=== PATIENT | female | born 1960 | race Two or more races ===

== ENCOUNTER 2020-08-21 13:20 | Emergency (ER) | payer MEDICARE, MEDICAID, SELFPAY ==
--- NOTE | 2020-08-21 | CT_ITS ---
EXAMINATION: CT ANGIOGRAM OF THE CHEST WITH AND WITHOUT CONTRAST (CT PULMONARY ANGIOGRAM FOR PE) CLINICAL INFORMATION: Reason for Exam SOB, elevated DDIMER r/o PE COMPARISON: Chest x-ray from earlier the same day and previous chest CTA most recent January 2019 TECHNIQUE: Prior to contrast administration, noncontrast localization images were obtained. Subsequently, multidetector volumetric imaging was performed from the thoracic inlet to below the diaphragms following the administration of 65 mL Omnipaque 350 intravenous contrast. No contrast reaction reported Sagittal, coronal, and MIP oblique sagittal reformatted images were obtained on the CT workstation, uploaded to PACS, and reviewed. This CT examination was performed using dose optimization techniques as appropriate, variously including the following: *Automated exposure control *Adjustment of mA and/or kV according to patient size (this includes techniques or standardized protocols for targeted exams where dose is matched to indication/reason for exam; i.e. extremities or head) *Use of iterative reconstruction technique Total exam dose-length product 188 mGy-cm FINDINGS: QUALITY OF STUDY/CONTRAST BOLUS: Satisfactory. PULMONARY ARTERIES: No central or segmental pulmonary emboli. THORACIC AORTA: No aneurysm or dissection. LUNG: No focal consolidation, nodules or masses. Or increased interstitial markings seen in the peripheral anterior left upper lobe, question representing post radiation change. PLEURA: No pleural effusion or pneumothorax. MEDIASTINUM: Normal heart size. No pericardial effusion. No hilar or mediastinal lymphadenopathy. No evidence of septal bowing or right heart strain. CHEST WALL/AXILLA: No axillary or internal mammary lymphadenopathy. OSSEOUS STRUCTURES: No acute or suspicious osseous abnormality. UPPER ABDOMEN: Unremarkable. No reflux of contrast into the hepatic veins to suggest elevated right heart pressures. IMPRESSION: No evidence of pulmonary embolism. VTE: negative
--- NOTE | 2020-08-21 | CT_ITS ---
EXAMINATION: CT ABDOMEN AND PELVIS WITH CONTRAST CLINICAL INFORMATION: Abdominal pain. Blood diarrhea. History of colitis. COMPARISON: CT abdomen pelvis 08/16/2019 TECHNIQUE: Multidetector volumetric images were obtained from the superior aspect of the liver through the pubic symphysis following administration of 71 mL of Omnipaque 350 intravenous contrast. Sagittal and coronal reformatted images were obtained on the technologist's workstation. Oral contrast: No This CT examination was performed using dose optimization techniques as appropriate, variously including the following: *Automated exposure control *Adjustment of mA and/or kV according to patient size (this includes techniques or standardized protocols for targeted exams where dose is matched to indication/reason for exam; i.e. extremities or head) *Use of iterative reconstruction technique DLP: 353 mGy-cm FINDINGS: LUNG BASES: The visualized lung bases are unremarkable. LIVER, GALLBLADDER, AND BILIARY TREE: There is diffuse mild low-attenuation of liver parenchyma due to fatty change. No focal liver lesion and hepatic bile duct dilatation. The gallbladder is unremarkable with no evidence of radiopaque gallstones, gallbladder wall thickening, or obvious pericholecystic inflammatory changes. PANCREAS: Unremarkable. SPLEEN: Unremarkable. ADRENAL GLANDS: Unremarkable. KIDNEYS AND URETERS: The kidneys are normal in size, shape, and attenuation. No hydronephrosis, hydroureter, or calculi seen. No perinephric stranding. BLADDER: Unremarkable. GASTROINTESTINAL TRACT: There is mild bowel wall thickening of the sigmoid colon. This is nonspecific. There are a few scattered diverticula in the sigmoid colon. There is no pericolonic edema. Moderate volume of stool in the right colon through the transverse colon. Very little stool seen in the left colon. The appendix is normal. The small bowel loops are unremarkable. There is no bowel obstruction. ABDOMINAL WALL: Small fat-containing umbilical hernia LYMPH NODES: Normal. VASCULAR: Atherosclerotic vascular calcifications of the aorta and iliac arteries. There is no aneurysm. PELVIC VISCERA: Unremarkable. OSSEOUS STRUCTURES: Unremarkable. IMPRESSION: Mild bowel wall thickening of the sigmoid colon which could be due to a mild colitis. There is no surrounding pericolonic edema however. There is no bowel obstruction.
--- NOTE | 2020-08-21 | XR_ITS ---
EXAMINATION: XR CHEST CLINICAL INFORMATION: Shortness of breath COMPARISON: Previous chest x-ray most recent 08/10/2020 TECHNIQUE: Frontal view of the chest was obtained. FINDINGS: The cardiac and mediastinal contours are normal. The lungs are clear. There is no pleural effusion or pneumothorax. There is an old right posterior sixth rib fracture. Bony structures are otherwise unremarkable. IMPRESSION: No evidence for acute disease in the chest.
[2020-08-21 13:39] VITALS: BP 134/95; PULSE 97; RESP 25; TEMP 36.9; O2SAT 96; BMI 55.3
--- NOTE | 2020-08-21 13:46 | ED_ITS ---
HPI - Asthma General Chief Complaint: Asthma <JOSEF Carlson Last Filed: 08/21/20 20:31> Stated Complaint: ASTHMA ABD PAIN <JOSEF Carlson Last Filed: 08/21/20 20:31> Time Seen by Provider: 08/21/20 13:44 <JOSEF Carlson Last Filed: 08/21/20 20:31> Source: patient <JOSEF Carlson Last Filed: 08/21/20 20:31> Mode of arrival: ambulatory <JOSEF Carlson Last Filed: 08/21/20 20:31> Limitations: no limitations <JOSEF Carlson Last Filed: 08/21/20 20:31> History of Present Illness HPI Narrative: 60 y/o female with history of asthma presenting with SOB, wheezing x3 weeks and abd discomfort x2 days. She developed abdominal cramping yesterday, then diarrhea and then today had episode of bloody diarrhea. She has a history of colitis and this feels similar. She has been to the ED a few times in the last couple of weeks for her asthma, had negative COVID x2. <JOSEF Carlson Last Filed: 08/21/20 20:31> Related Data Home Medications: Home Medications Medication Instructions Recorded Confirmed omeprazole 40 mg BID 08/21/20 08/21/20 ondansetron HCl [Zofran] 4 mg PO Q6H 08/21/20 08/21/20 Previous Rx's Medication Instructions Recorded [id number] 2 cap PO Q4-6H PRN #20 cap 08/21/20 [Fioricet] metronidazole [Flagyl] 500 mg PO Q12H #14 tab 08/21/20 prednisone 10 mg PO DAILY #48 ea 08/21/20 <JOSEF Carlson Last Filed: 08/21/20 20:31> Allergies/Adverse Reactions: Allergies Allergy/AdvReac Type Severity Reaction Status Date / Time dog dander [DOGS] Allergy Intermediate Respiratory Verified 08/21/20 13:38 distress ibuprofen [Ibuprofen] Allergy Unknown STOMACH Verified 08/21/20 13:38 UPSET, abdominal pain, nausea and vomiting prednisone Allergy Unknown hallucinations, Verified 08/21/20 13:38 higher than 20 metformin AdvReac Unknown diarrhea Verified 03/30/20 00:00 metronidazole [From FLAGYL] AdvReac Unknown DIARRHEA Verified 08/21/20 13:38 SHELL FISH Allergy Unknown swelling, Uncoded 06/06/20 00:00 itching <JOSEF Carlson - Last Filed: 08/21/20 20:31> Review of Systems Review of Systems: Constitutional: No Fever, No Chills ENT/Mouth: No sore throat, No Rhinorrhea, No Swallowing Difficulty Cardiovascular: No Chest Pain, + SOB, + Orthopnea, No Edema Respiratory: + Cough, + Sputum, + Wheezing, + dyspnea Gastrointestinal: No Nausea, No Vomiting, + Diarrhea, + abdominal Pain, + Hematochezia, No Melena Genitourinary: No Dysuria, No Urinary Frequency, No Hematuria Musculoskeletal: No joint pain, No Myalgias Skin: No Skin Lesions, No rash Neuro: No Weakness, No Numbness, No Dizziness, + Headache Psych: No Anxiety/Panic, No Depression Heme/Lymph: No Bruising, No Lymphadenopathy Endocrine: No Polyuria, No Polydipsia <JOSEF Carlson - Last Filed: 08/21/20 20:31> [facility] Past Medical History Attestation statement: The following information was validated with the patient. <JOSEF Carlson - Last Filed: 08/21/20 20:31> Medical History: Medical History Asthma Diabetes mellitus type 1 Hypertension Irritable bowel <JOSEF Carlson - Last Filed: 08/21/20 20:31> Family History Family History: Family History (Updated 08/13/20 @ 12:00 by Radha Wilks) Mother Diabetes Father Diabetes <JOSEF Carlson - Last Filed: 08/21/20 20:31> Social History Social History: Social History Alcohol intake: current Alcohol intake frequency: holidays/special occasions only Alcohol type: wine Smoking Status: Light tobacco smoker Use of substances other than those prescribed or required for medical reasons: No Advance Directives: No Advance Directives Information Provided: No <JOSEF Carlson - Last Filed: 08/21/20 20:31> Physical Exam Vital Signs and I&O and Narrative: Vital Signs and I&O: Vital Signs Temp 98.4 F 08/21/20 14:55 Pulse 91 08/21/20 14:55 Resp 16 08/21/20 14:55 BP 119/66 08/21/20 14:55 Pulse Ox 96 08/21/20 14:55 Intake & Output 08/21/20 08/21/20 08/22/20 06:59 18:59 06:59 Intake Total 100 / 200 100 / 200 Balance 100 / 200 100 / 200 Weight 120 kg Intake: Intake, IV Amoun t 100 / 200 100 / 200 Magnesium Sulf ate/H2O 2 gm In 50 / 50 50 ml @ 50 mls /hr IV ONCE ONE Rx#:[id number] cefTRIAXone so dium 1 gm In 0.9 50 / 50 % Sodium Chlor chris 50 ml @ 100 mls/hr IV ONCE ONE Rx#: [id number] metroNIDAZOLE/ NS 500 mg In 100 100 / 100 ml @ 100 mls/h r IV ONCE ONE Rx# :[id number] Body Mass Index 55.3 Appearance: Alert. Oriented X3. No acute distress. Eyes: Pupils equal, round and reactive to light. ENT: Pharynx normal. Neck: Normal inspection. Neck supple. CVS: tachycardic, regular rhythm. Pulses normal. Respiratory: mild respiratory distress w/ RR 22, expiratory wheezes throughout L>R, no rhonchi Abdomen: Soft with lower abdominal tenderness. +BS x4 Skin: Skin warm and dry. Normal skin color. Normal skin turgor. No rashes. Extremities: No lower extremity edema. Neuro: Oriented X 3. No motor deficit. No sensory deficit. <JOSEF Carlson - Last Filed: 08/21/20 20:31> Vital Signs and I&O: Vital Signs Temp 98.4 F 08/21/20 14:55 Pulse 91 08/21/20 14:55 Resp 16 08/21/20 14:55 BP 119/66 08/21/20 14:55 Pulse Ox 96 08/21/20 14:55 Intake & Output 08/21/20 08/21/20 08/22/20 06:59 18:59 06:59 Intake Total 100 / 200 100 / 200 Balance 100 / 200 100 / 200 Weight 120 kg Intake: Intake, IV Amoun t 100 / 200 100 / 200 Magnesium Sulf ate/H2O 2 gm In 50 / 50 50 ml @ 50 mls /hr IV ONCE ONE Rx#:[id number] cefTRIAXone so dium 1 gm In 0.9 50 / 50 % Sodium Chlor chris 50 ml @ 100 mls/hr IV ONCE ONE Rx#: [id number] metroNIDAZOLE/ NS 500 mg In 100 100 / 100 ml @ 100 mls/h r IV ONCE ONE Rx# :[id number] Body Mass Index 55.3 <Waldo Stoner DO - Last Filed: 08/21/20 20:41> Course Course Hospital Course: patient is feeling slighty better after neb tx, steroids and IV Morphine. DDIMER elevated >1999. Will proceed with CTA chest and CT abd/pelvis with contrast as well to assess for colitis vs diverticulitis, <JOSEF Carlson - Last Filed: 08/21/20 20:31> Reevaluation(s) Reevaluation #1: CTA negative for PE, no PNA or consolidation. CT abd/pelvis shows ?mild colitis. will give dose of rocephin and flagyl here. WBC 12.4 but has been chornically elevated since June and she is on chronic steroids. Giving PO trial now. She remains on room air with no hypoxic episodes. <JOSEF Carlson - Last Filed: 08/21/20 20:31> Time: 19:38 <JOSEF Carlson - Last Filed: 08/21/20 20:31> Reevaluation #2: Ambulatory pulse ox on room air patient maintained Spo2 94% or greater. No resp distress or dyspnea. She is tolerating PO liquids and solids without N/V/D. She is stable for discharge with plan to treat for acutte asthma exacerbation and coltiis. She has an appointment with her [facility] tomorrow. Her neb machine is broken and she is planning on trying to get it replaced. <JOSEF Carlson - Last Filed: 08/21/20 20:31> MDM - Asthma Differential Diagnosis Differential diagnosis: Likely Acute exacerbation, Status asthmaticus, Acute asthmatic bronchitis, PE, Pneumonia, COPD exacerbation, Pulmonary edema systolic, Pulmonary edema dystolic and ARDS <JOSEF Carlson - Last Filed: 08/21/20 20:31> Medical Records Attestation: I reviewed the patient's medical records. <JOSEF Carlson - Last Filed: 08/21/20 20:31> Lab Data Attestation: I reviewed the patient's lab results. <JOSEF Carlson - Last Filed: 08/21/20 20:31> Result diagrams: : 08/21/20 14:12 08/21/20 14:13 <JOSEF Carlson - Last Filed: 08/21/20 20:31> Labs: Lab Results 08/21/20 08/21/20 08/21/20 Range/Units 14:12 14:12 14:13 WBC 12.4 H (4.8-10.8) X10*3/uL RBC 4.52 (4.20-5.50) X10*6/uL Hgb 13.4 (12.0-16.0) g/dl Hct 42.0 (37-47) % MCV 92.9 (80-98) fL MCH 29.6 (27.0-33.0) pg MCHC 31.9 (31.0-35.0) g/dl RDW 13.6 (11.0-16.0) % Plt Count 327 (160-400) X10*3/uL MPV 11.4 (9.4-12.3) fL Immature Gran % (Auto) 0.6 H (0.0-0.4) % Neut % (Auto) 86.4 H (45-73) % Lymph % (Auto) 9.2 L (20-40) % [place] % (Auto) 3.4 (2-11) % Eos % (Auto) 0.2 (0-4) % Baso % (Auto) 0.2 (0-2) % Neut # (Auto) 10.7 H (2.0-8.3) X10*3/uL Lymph # (Auto) 1.1 L (1.2-4.9) X10*3/uL [place] # (Auto) 0.4 (0.1-1.2) X10*3/uL Eos # (Auto) 0.0 (0.0-0.4) X10*3/uL Baso # (Auto) 0.0 (0.0-0.2) X10*3/uL Abs Immat Gran (auto) 0.07 H (0.00-0.03) X10*3/uL Absolute Nucleated RBC 0.000 (0.0-0.012) X10*3/uL Nucleated RBC % (auto) 0.0 (0.0-0.2) /100WBC D-Dimer NG/ML Sodium 135 (135-145) mmol/L Potassium 4.8 (3.3-5.1) mmol/l Chloride 101 (96-108) mmol/L Carbon Dioxide 24 (22-29) mmol/L Anion Gap 15 (12-20) BUN 6 L (9-16) mg/dL Creatinine 0.98 (0.5-1.4) mg/dL Estim Creat Clear Calc 71.7 Estimated GFR 58 POC Glucose (60-115) mg/dL Random Glucose 391 H* (60-115) mg/dL Lactic Acid (0.5-2.0) mmol/L Calcium 10.0 (8.4-10.2) mg/dL Total Bilirubin (0.0-1.0) mg/dL Direct Bilirubin (0.0-0.5) mg/dL AST (5-31) U/L ALT (0-31) U/L Alkaline Phosphatase (39-117) U/L B-Natriuretic Peptide (<100) pg/mL Total Protein (6.5-8.0) g/dL Albumin (3.5-5.0) g/dL Lipase (8-78) U/L Urine Color YELLOW Urine Appearance CLEAR Urine pH 7.0 (5.0-8.0) Ur Specific [place] 1.010 (1.005-1.025) Urine Protein NEG (NEG-TRACE) MG/DL Urine Glucose (UA) >=1000 H (NEG) MG/DL Urine Ketones NEG (NEG) MG/DL Urine Blood NEG (NEG) Urine Nitrite NEG (NEG) Ur Leukocyte Esterase NEG (NEG) Urine RBC 0 (0) /HPF Urine WBC 0-2 (0-4) /HPF Ur Squamous Epith Cells 2+ /LPF Urine Bacteria 1+ /LPF Stool Collect Date Stool Occult Blood (NEG) 08/21/20 08/21/20 08/21/20 Range/Units 14:13 14:44 14:44 WBC (4.8-10.8) X10*3/uL RBC (4.20-5.50) X10*6/uL Hgb (12.0-16.0) g/dl Hct (37-47) % MCV (80-98) fL MCH (27.0-33.0) pg MCHC (31.0-35.0) g/dl RDW (11.0-16.0) % Plt Count (160-400) X10*3/uL MPV (9.4-12.3) fL Immature Gran % (Auto) (0.0-0.4) % Neut % (Auto) (45-73) % Lymph % (Auto) (20-40) % [place] % (Auto) (2-11) % Eos % (Auto) (0-4) % Baso % (Auto) (0-2) % Neut # (Auto) (2.0-8.3) X10*3/uL Lymph # (Auto) (1.2-4.9) X10*3/uL [place] # (Auto) (0.1-1.2) X10*3/uL Eos # (Auto) (0.0-0.4) X10*3/uL Baso # (Auto) (0.0-0.2) X10*3/uL Abs Immat Gran (auto) (0.00-0.03) X10*3/uL Absolute Nucleated RBC (0.0-0.012) X10*3/uL Nucleated RBC % (auto) (0.0-0.2) /100WBC D-Dimer NG/ML Sodium (135-145) mmol/L Potassium (3.3-5.1) mmol/l Chloride (96-108) mmol/L Carbon Dioxide (22-29) mmol/L Anion Gap (12-20) BUN (9-16) mg/dL Creatinine (0.5-1.4) mg/dL Estim Creat Clear Calc Estimated GFR POC Glucose (60-115) mg/dL Random Glucose (60-115) mg/dL Lactic Acid 2.0 (0.5-2.0) mmol/L Calcium (8.4-10.2) mg/dL Total Bilirubin 0.3 (0.0-1.0) mg/dL Direct Bilirubin 0.2 (0.0-0.5) mg/dL AST 16 (5-31) U/L ALT 22 (0-31) U/L Alkaline Phosphatase 95 (39-117) U/L B-Natriuretic Peptide 12 (<100) pg/mL Total Protein 6.8 (6.5-8.0) g/dL Albumin 4.2 (3.5-5.0) g/dL Lipase 40 (8-78) U/L Urine Color Urine Appearance Urine pH (5.0-8.0) Ur Specific [place] (1.005-1.025) Urine Protein (NEG-TRACE) MG/DL Urine Glucose (UA) (NEG) MG/DL Urine Ketones (NEG) MG/DL Urine Blood (NEG) Urine Nitrite (NEG) Ur Leukocyte Esterase (NEG) Urine RBC (0) /HPF Urine WBC (0-4) /HPF Ur Squamous Epith Cells /LPF Urine Bacteria /LPF Stool Collect Date Stool Occult Blood (NEG) 08/21/20 08/21/20 08/21/20 Range/Units 14:44 14:53 16:43 WBC (4.8-10.8) X10*3/uL RBC (4.20-5.50) X10*6/uL Hgb (12.0-16.0) g/dl Hct (37-47) % MCV (80-98) fL MCH (27.0-33.0) pg MCHC (31.0-35.0) g/dl RDW (11.0-16.0) % Plt Count (160-400) X10*3/uL MPV (9.4-12.3) fL Immature Gran % (Auto) (0.0-0.4) % Neut % (Auto) (45-73) % Lymph % (Auto) (20-40) % [place] % (Auto) (2-11) % Eos % (Auto) (0-4) % Baso % (Auto) (0-2) % Neut # (Auto) (2.0-8.3) X10*3/uL Lymph # (Auto) (1.2-4.9) X10*3/uL [place] # (Auto) (0.1-1.2) X10*3/uL Eos # (Auto) (0.0-0.4) X10*3/uL Baso # (Auto) (0.0-0.2) X10*3/uL Abs Immat Gran (auto) (0.00-0.03) X10*3/uL Absolute Nucleated RBC (0.0-0.012) X10*3/uL Nucleated RBC % (auto) (0.0-0.2) /100WBC D-Dimer 4279 NG/ML Sodium (135-145) mmol/L Potassium (3.3-5.1) mmol/l Chloride (96-108) mmol/L Carbon Dioxide (22-29) mmol/L Anion Gap (12-20) BUN (9-16) mg/dL Creatinine (0.5-1.4) mg/dL Estim Creat Clear Calc Estimated GFR POC Glucose 334 H 309 H (60-115) mg/dL Random Glucose (60-115) mg/dL Lactic Acid (0.5-2.0) mmol/L Calcium (8.4-10.2) mg/dL Total Bilirubin (0.0-1.0) mg/dL Direct Bilirubin (0.0-0.5) mg/dL AST (5-31) U/L ALT (0-31) U/L Alkaline Phosphatase (39-117) U/L B-Natriuretic Peptide (<100) pg/mL Total Protein (6.5-8.0) g/dL Albumin (3.5-5.0) g/dL Lipase (8-78) U/L Urine Color Urine Appearance Urine pH (5.0-8.0) Ur Specific [place] (1.005-1.025) Urine Protein (NEG-TRACE) MG/DL Urine Glucose (UA) (NEG) MG/DL Urine Ketones (NEG) MG/DL Urine Blood (NEG) Urine Nitrite (NEG) Ur Leukocyte Esterase (NEG) Urine RBC (0) /HPF Urine WBC (0-4) /HPF Ur Squamous Epith Cells /LPF Urine Bacteria /LPF Stool Collect Date Stool Occult Blood (NEG) 08/21/20 08/21/20 Range/Units 17:13 19:42 WBC (4.8-10.8) X10*3/uL RBC (4.20-5.50) X10*6/uL Hgb (12.0-16.0) g/dl Hct (37-47) % MCV (80-98) fL MCH (27.0-33.0) pg MCHC (31.0-35.0) g/dl RDW (11.0-16.0) % Plt Count (160-400) X10*3/uL MPV (9.4-12.3) fL Immature Gran % (Auto) (0.0-0.4) % Neut % (Auto) (45-73) % Lymph % (Auto) (20-40) % [place] % (Auto) (2-11) % Eos % (Auto) (0-4) % Baso % (Auto) (0-2) % Neut # (Auto) (2.0-8.3) X10*3/uL Lymph # (Auto) (1.2-4.9) X10*3/uL [place] # (Auto) (0.1-1.2) X10*3/uL Eos # (Auto) (0.0-0.4) X10*3/uL Baso # (Auto) (0.0-0.2) X10*3/uL Abs Immat Gran (auto) (0.00-0.03) X10*3/uL Absolute Nucleated RBC (0.0-0.012) X10*3/uL Nucleated RBC % (auto) (0.0-0.2) /100WBC D-Dimer NG/ML Sodium (135-145) mmol/L Potassium (3.3-5.1) mmol/l Chloride (96-108) mmol/L Carbon Dioxide (22-29) mmol/L Anion Gap (12-20) BUN (9-16) mg/dL Creatinine (0.5-1.4) mg/dL Estim Creat Clear Calc Estimated GFR POC Glucose 262 H (60-115) mg/dL Random Glucose (60-115) mg/dL Lactic Acid (0.5-2.0) mmol/L Calcium (8.4-10.2) mg/dL Total Bilirubin (0.0-1.0) mg/dL Direct Bilirubin (0.0-0.5) mg/dL AST (5-31) U/L ALT (0-31) U/L Alkaline Phosphatase (39-117) U/L B-Natriuretic Peptide (<100) pg/mL Total Protein (6.5-8.0) g/dL Albumin (3.5-5.0) g/dL Lipase (8-78) U/L Urine Color Urine Appearance Urine pH (5.0-8.0) Ur Specific [place] (1.005-1.025) Urine Protein (NEG-TRACE) MG/DL Urine Glucose (UA) (NEG) MG/DL Urine Ketones (NEG) MG/DL Urine Blood (NEG) Urine Nitrite (NEG) Ur Leukocyte Esterase (NEG) Urine RBC (0) /HPF Urine WBC (0-4) /HPF Ur Squamous Epith Cells /LPF Urine Bacteria /LPF Stool Collect Date 08/21 Stool Occult Blood NEG (NEG) <JOSEF Carlson - Last Filed: 08/21/20 20:31> Lab Results 08/21/20 08/21/20 08/21/20 Range/Units 14:12 14:12 14:13 WBC 12.4 H (4.8-10.8) X10*3/uL RBC 4.52 (4.20-5.50) X10*6/uL Hgb 13.4 (12.0-16.0) g/dl Hct 42.0 (37-47) % MCV 92.9 (80-98) fL MCH 29.6 (27.0-33.0) pg MCHC 31.9 (31.0-35.0) g/dl RDW 13.6 (11.0-16.0) % Plt Count 327 (160-400) X10*3/uL MPV 11.4 (9.4-12.3) fL Immature Gran % (Auto) 0.6 H (0.0-0.4) % Neut % (Auto) 86.4 H (45-73) % Lymph % (Auto) 9.2 L (20-40) % [place] % (Auto) 3.4 (2-11) % Eos % (Auto) 0.2 (0-4) % Baso % (Auto) 0.2 (0-2) % Neut # (Auto) 10.7 H (2.0-8.3) X10*3/uL Lymph # (Auto) 1.1 L (1.2-4.9) X10*3/uL [place] # (Auto) 0.4 (0.1-1.2) X10*3/uL Eos # (Auto) 0.0 (0.0-0.4) X10*3/uL Baso # (Auto) 0.0 (0.0-0.2) X10*3/uL Abs Immat Gran (auto) 0.07 H (0.00-0.03) X10*3/uL Absolute Nucleated RBC 0.000 (0.0-0.012) X10*3/uL Nucleated RBC % (auto) 0.0 (0.0-0.2) /100WBC D-Dimer NG/ML Sodium 135 (135-145) mmol/L Potassium 4.8 (3.3-5.1) mmol/l Chloride 101 (96-108) mmol/L Carbon Dioxide 24 (22-29) mmol/L Anion Gap 15 (12-20) BUN 6 L (9-16) mg/dL Creatinine 0.98 (0.5-1.4) mg/dL Estim Creat Clear Calc 71.7 Estimated GFR 58 POC Glucose (60-115) mg/dL Random Glucose 391 H* (60-115) mg/dL Lactic Acid (0.5-2.0) mmol/L Calcium 10.0 (8.4-10.2) mg/dL Total Bilirubin (0.0-1.0) mg/dL Direct Bilirubin (0.0-0.5) mg/dL AST (5-31) U/L ALT (0-31) U/L Alkaline Phosphatase (39-117) U/L B-Natriuretic Peptide (<100) pg/mL Total Protein (6.5-8.0) g/dL Albumin (3.5-5.0) g/dL Lipase (8-78) U/L Urine Color YELLOW Urine Appearance CLEAR Urine pH 7.0 (5.0-8.0) Ur Specific [place] 1.010 (1.005-1.025) Urine Protein NEG (NEG-TRACE) MG/DL Urine Glucose (UA) >=1000 H (NEG) MG/DL Urine Ketones NEG (NEG) MG/DL Urine Blood NEG (NEG) Urine Nitrite NEG (NEG) Ur Leukocyte Esterase NEG (NEG) Urine RBC 0 (0) /HPF Urine WBC 0-2 (0-4) /HPF Ur Squamous Epith Cells 2+ /LPF Urine Bacteria 1+ /LPF Stool Collect Date Stool Occult Blood (NEG) 08/21/20 08/21/20 08/21/20 Range/Units 14:13 14:44 14:44 WBC (4.8-10.8) X10*3/uL RBC (4.20-5.50) X10*6/uL Hgb (12.0-16.0) g/dl Hct (37-47) % MCV (80-98) fL MCH (27.0-33.0) pg MCHC (31.0-35.0) g/dl RDW (11.0-16.0) % Plt Count (160-400) X10*3/uL MPV (9.4-12.3) fL Immature Gran % (Auto) (0.0-0.4) % Neut % (Auto) (45-73) % Lymph % (Auto) (20-40) % [place] % (Auto) (2-11) % Eos % (Auto) (0-4) % Baso % (Auto) (0-2) % Neut # (Auto) (2.0-8.3) X10*3/uL Lymph # (Auto) (1.2-4.9) X10*3/uL [place] # (Auto) (0.1-1.2) X10*3/uL Eos # (Auto) (0.0-0.4) X10*3/uL Baso # (Auto) (0.0-0.2) X10*3/uL Abs Immat Gran (auto) (0.00-0.03) X10*3/uL Absolute Nucleated RBC (0.0-0.012) X10*3/uL Nucleated RBC % (auto) (0.0-0.2) /100WBC D-Dimer NG/ML Sodium (135-145) mmol/L Potassium (3.3-5.1) mmol/l Chloride (96-108) mmol/L Carbon Dioxide (22-29) mmol/L Anion Gap (12-20) BUN (9-16) mg/dL Creatinine (0.5-1.4) mg/dL Estim Creat Clear Calc Estimated GFR POC Glucose (60-115) mg/dL Random Glucose (60-115) mg/dL Lactic Acid 2.0 (0.5-2.0) mmol/L Calcium (8.4-10.2) mg/dL Total Bilirubin 0.3 (0.0-1.0) mg/dL Direct Bilirubin 0.2 (0.0-0.5) mg/dL AST 16 (5-31) U/L ALT 22 (0-31) U/L Alkaline Phosphatase 95 (39-117) U/L B-Natriuretic Peptide 12 (<100) pg/mL Total Protein 6.8 (6.5-8.0) g/dL Albumin 4.2 (3.5-5.0) g/dL Lipase 40 (8-78) U/L Urine Color Urine Appearance Urine pH (5.0-8.0) Ur Specific [place] (1.005-1.025) Urine Protein (NEG-TRACE) MG/DL Urine Glucose (UA) (NEG) MG/DL Urine Ketones (NEG) MG/DL Urine Blood (NEG) Urine Nitrite (NEG) Ur Leukocyte Esterase (NEG) Urine RBC (0) /HPF Urine WBC (0-4) /HPF Ur Squamous Epith Cells /LPF Urine Bacteria /LPF Stool Collect Date Stool Occult Blood (NEG) 08/21/20 08/21/20 08/21/20 Range/Units 14:44 14:53 16:43 WBC (4.8-10.8) X10*3/uL RBC (4.20-5.50) X10*6/uL Hgb (12.0-16.0) g/dl Hct (37-47) % MCV (80-98) fL MCH (27.0-33.0) pg MCHC (31.0-35.0) g/dl RDW (11.0-16.0) % Plt Count (160-400) X10*3/uL MPV (9.4-12.3) fL Immature Gran % (Auto) (0.0-0.4) % Neut % (Auto) (45-73) % Lymph % (Auto) (20-40) % [place] % (Auto) (2-11) % Eos % (Auto) (0-4) % Baso % (Auto) (0-2) % Neut # (Auto) (2.0-8.3) X10*3/uL Lymph # (Auto) (1.2-4.9) X10*3/uL [place] # (Auto) (0.1-1.2) X10*3/uL Eos # (Auto) (0.0-0.4) X10*3/uL Baso # (Auto) (0.0-0.2) X10*3/uL Abs Immat Gran (auto) (0.00-0.03) X10*3/uL Absolute Nucleated RBC (0.0-0.012) X10*3/uL Nucleated RBC % (auto) (0.0-0.2) /100WBC D-Dimer 4279 NG/ML Sodium (135-145) mmol/L Potassium (3.3-5.1) mmol/l Chloride (96-108) mmol/L Carbon Dioxide (22-29) mmol/L Anion Gap (12-20) BUN (9-16) mg/dL Creatinine (0.5-1.4) mg/dL Estim Creat Clear Calc Estimated GFR POC Glucose 334 H 309 H (60-115) mg/dL Random Glucose (60-115) mg/dL Lactic Acid (0.5-2.0) mmol/L Calcium (8.4-10.2) mg/dL Total Bilirubin (0.0-1.0) mg/dL Direct Bilirubin (0.0-0.5) mg/dL AST (5-31) U/L ALT (0-31) U/L Alkaline Phosphatase (39-117) U/L B-Natriuretic Peptide (<100) pg/mL Total Protein (6.5-8.0) g/dL Albumin (3.5-5.0) g/dL Lipase (8-78) U/L Urine Color Urine Appearance Urine pH (5.0-8.0) Ur Specific [place] (1.005-1.025) Urine Protein (NEG-TRACE) MG/DL Urine Glucose (UA) (NEG) MG/DL Urine Ketones (NEG) MG/DL Urine Blood (NEG) Urine Nitrite (NEG) Ur Leukocyte Esterase (NEG) Urine RBC (0) /HPF Urine WBC (0-4) /HPF Ur Squamous Epith Cells /LPF Urine Bacteria /LPF Stool Collect Date Stool Occult Blood (NEG) 08/21/20 08/21/20 Range/Units 17:13 19:42 WBC (4.8-10.8) X10*3/uL RBC (4.20-5.50) X10*6/uL Hgb (12.0-16.0) g/dl Hct (37-47) % MCV (80-98) fL MCH (27.0-33.0) pg MCHC (31.0-35.0) g/dl RDW (11.0-16.0) % Plt Count (160-400) X10*3/uL MPV (9.4-12.3) fL Immature Gran % (Auto) (0.0-0.4) % Neut % (Auto) (45-73) % Lymph % (Auto) (20-40) % [place] % (Auto) (2-11) % Eos % (Auto) (0-4) % Baso % (Auto) (0-2) % Neut # (Auto) (2.0-8.3) X10*3/uL Lymph # (Auto) (1.2-4.9) X10*3/uL [place] # (Auto) (0.1-1.2) X10*3/uL Eos # (Auto) (0.0-0.4) X10*3/uL Baso # (Auto) (0.0-0.2) X10*3/uL Abs Immat Gran (auto) (0.00-0.03) X10*3/uL Absolute Nucleated RBC (0.0-0.012) X10*3/uL Nucleated RBC % (auto) (0.0-0.2) /100WBC D-Dimer NG/ML Sodium (135-145) mmol/L Potassium (3.3-5.1) mmol/l Chloride (96-108) mmol/L Carbon Dioxide (22-29) mmol/L Anion Gap (12-20) BUN (9-16) mg/dL Creatinine (0.5-1.4) mg/dL Estim Creat Clear Calc Estimated GFR POC Glucose 262 H (60-115) mg/dL Random Glucose (60-115) mg/dL Lactic Acid (0.5-2.0) mmol/L Calcium (8.4-10.2) mg/dL Total Bilirubin (0.0-1.0) mg/dL Direct Bilirubin (0.0-0.5) mg/dL AST (5-31) U/L ALT (0-31) U/L Alkaline Phosphatase (39-117) U/L B-Natriuretic Peptide (<100) pg/mL Total Protein (6.5-8.0) g/dL Albumin (3.5-5.0) g/dL Lipase (8-78) U/L Urine Color Urine Appearance Urine pH (5.0-8.0) Ur Specific [place] (1.005-1.025) Urine Protein (NEG-TRACE) MG/DL Urine Glucose (UA) (NEG) MG/DL Urine Ketones (NEG) MG/DL Urine Blood (NEG) Urine Nitrite (NEG) Ur Leukocyte Esterase (NEG) Urine RBC (0) /HPF Urine WBC (0-4) /HPF Ur Squamous Epith Cells /LPF Urine Bacteria /LPF Stool Collect Date 08/21 Stool Occult Blood NEG (NEG) <Waldo Stoner DO - Last Filed: 08/21/20 20:41> Critical Care Time Critical Care Time Critical Care Time: No <JOSEF Carlson - Last Filed: 08/21/20 20:31> Discharge Plan Discharge Clinical Impression: Colitis Asthma with acute exacerbation Qualifiers: Asthma severity: moderate Asthma persistence: unspecified Qualified Code(s): J45.901 - Unspecified asthma with (acute) exacerbation <JOSEF Carlson - Last Filed: 08/21/20 20:31> Patient Disposition: Home, Self-Care <JOSEF Carlson - Last Filed: 08/21/20 20:31> Instructions: Asthma (ED), Colitis (ED) <JOSEF Carlson - Last Filed: 08/21/20 20:31> Additional Instructions: Follow up with your doctor tomorrow as scheduled. If you develop fever, shortness of breath, chest pain, or persistent nausea, vomiting or diarrhea call 911 or come back to the ER for further evaluation. <JOSEF Carlson - Last Filed: 08/21/20 20:31> Prescriptions: New metronidazole [Flagyl] 500 mg tablet 500 mg PO Q12H Qty: 14 RF: 0 prednisone 10 mg tablets,dose pack 10 mg PO DAILY Qty: 48 RF: 0 [id number] [Fioricet] 50-300-40 mg capsule 2 cap PO Q4-6H PRN (Reason: pain) Qty: 20 RF: 0 Continued ondansetron HCl [Zofran] 4 mg Tablet 4 mg PO Q6H RF: 0 Held omeprazole 40 mg BID RF: 0 Hold Instructions: Resume on 08/28/20. <JOSEF Carlson - Last Filed: 08/21/20 20:31> Interventions: ED Discharge Assessment Last Done: 08/21/20 19:49 <JOSEF Carlson - Last Filed: 08/21/20 20:31> Discharge Date/Time: 08/21/20 19:57 <JOSEF Carlson - Last Filed: 08/21/20 20:31>
[2020-08-21] MEDS: methylPREDNISolone Sod Succ/PF 125 MG/2 ML VIAL 40 MG IVPUSH (14:27)
[2020-08-21] MEDS: Morphine Sulfate 4 MG/ML CARTRIDGE IVPUSH ×2 (14:27→18:18)
[2020-08-21 14:28] VITALS: BP 126/89; PULSE 97; RESP 18; TEMP 37.2; O2SAT 97
[2020-08-21] MEDS: Magnesium Sulfate/H2O 2 GM/50 ML PIGGYBACK IV (14:28)
[2020-08-21] MEDS: Albuterol/Iprat 2.5/0.5MG 3 ML AMPUL.NEB INHALE (14:34)
[2020-08-21 14:35] LABS: Glucose Urine UA >=1000 MG/DL (NEG); Leukocyte Esterase Urine NEG (NEG); MANUAL DIFF FLAG NO; Nitrite Urine NEG (NEG); Urine Blood NEG (NEG); Urine Ketones NEG (NEG); Urine Protein NEG (NEG-TRACE)
[2020-08-21 14:36] LABS: Basophils Percent Auto 0.2 % (0-2); Color Urine YELLOW; Eosinophils Percent Auto 0.2 % (0-4); Hemoglobin 13.4 g/dl (12.0-16.0); Imm Gran Abs Auto 0.07 X10*3/uL (0.00-0.03); Imm Gran Pct Auto 0.6 % (0.0-0.4); Lymphocytes Absolute Auto 1.1 X10*3/uL (1.2-4.9); Lymphocytes Percent Auto 9.2 % (20-40); Mean Corpuscular HGB Conc 31.9 g/dl (31.0-35.0); Mean Corpuscular Hemoglobin 29.6 pg (27.0-33.0); Mean Corpuscular Volume 92.9 fL (80-98); Mean Platelet Volume 11.4 fL (9.4-12.3); Monocytes Absolute Auto 0.4 X10*3/uL (0.1-1.2); Monocytes Percent Auto 3.4 % (2-11); Neutrophils Absolute Auto 10.7 X10*3/uL (2.0-8.3); Neutrophils Percent Auto 86.4 % (45-73); Platelet Count 327 X10*3/uL (160-400); Red Blood Count 4.52 X10*6/uL (4.20-5.50); Red Cell Distribution Width 13.6 % (11.0-16.0); White Blood Count 12.4 X10*3/uL (4.8-10.8)
[2020-08-21 14:37] LABS: Appearance Urine CLEAR
[2020-08-21 14:45] LABS: Bacteria Urine 1+ /LPF; RBC Urine 0 /HPF (0); Squamous Epithelial Cell Urine 2+ /LPF; WBC Urine 0-2 /HPF (0-4)
[2020-08-21 14:55] VITALS: BP 119/66; PULSE 91; RESP 16; TEMP 36.9; O2SAT 96
[2020-08-21 15:02] LABS: Glucose, Whole Blood 334 mg/dL (60-115)
[2020-08-21 15:04] LABS: Anion Gap 15 (12-20); Blood Urea Nitrogen 6 mg/dL (9-16); Carbon Dioxide 24 mmol/L (22-29); Chloride 101 mmol/L (96-108); Creatinine Clr Calc Pharmacy 71.7; Estimated Glomerular Filt Rate 58; Glucose Random 391 mg/dL (60-115); Potassium 4.8 mmol/l (3.3-5.1); Sodium 135 mmol/L (135-145)
[2020-08-21 15:05] LABS: B Type Natriuretic Peptide 12 pg/mL (<100)
[2020-08-21 15:12] LABS: Alanine Aminotransferase 22 U/L (0-31); Albumin Level 4.2 g/dL (3.5-5.0); Alkaline Phosphatase 95 U/L (39-117); Aspartate Amino Transferase 16 U/L (5-31); Bilirubin Direct 0.2 mg/dL (0.0-0.5); Bilirubin Total 0.3 mg/dL (0.0-1.0); Lipase 40 U/L (8-78); Total Protein 6.8 g/dL (6.5-8.0)
[2020-08-21 15:20] LABS: D Dimer 4279 NG/ML
--- NOTE | 2020-08-21 15:21 | PC.NURSE ---
ambulating to and from bathroom using steady gait, one assist.
[2020-08-21] MEDS: Insulin Lispro 100 UNIT/ML 3 ML VIAL SUBCUT (15:37)
[2020-08-21] MEDS: iohexoL 350 MG/ML 100 ML INFUS..BTL IV (16:28)
[2020-08-21 16:47] LABS: Glucose, Whole Blood 309 mg/dL (60-115)
[2020-08-21 17:22] LABS: OBS1 NEG (NEG)
[2020-08-21 17:23] LABS: OBS Int Ctl Valid YES
[2020-08-21] MEDS: metroNIDAZOLE/NS 500 MG/100 ML PIGGYBACK 100 MG IV (18:13)
[2020-08-21] MEDS: cefTRIAXone sodium 1 GM in 0.9 % Sodium Chloride 50 ML IV (18:13)
[2020-08-21] MEDS: Acetaminophen 325 MG TABLET 975 MG PO (18:18)
--- NOTE | 2020-08-21 19:23 | PC.NURSE ---
rt contacted for ambulation eval.
--- NOTE | 2020-08-21 19:35 | PC.NURSE ---
PATIENT PASSED RT EVAL.
[2020-08-21 19:39] VITALS: PULSE 98; RESP 94; RESP 96
[2020-08-21 19:47] LABS: Glucose, Whole Blood 262 mg/dL (60-115)
== END 2020-08-21 19:57 | disposition home or self-care (01) ==
PROVIDERS: Physician Assistant; Emergency Provider Emergency Medicine; PCP Internal Medicine
DX: J45.41 Moderate persistent asthma with (acute) exacerbation (principal); K52.9 Noninfective gastroenteritis and colitis, unspecified; E11.9 Type 2 diabetes mellitus without complications; I10 Essential (primary) hypertension; Z79.4 Long term (current) use of insulin; Z79.899 Other long term (current) drug therapy
CPT/HCPCS: 36415; 71045; 71275; 74177; 80048; 80076; 81001; 82272; 82947; 83605; 83690; 83880; 85025; 85379; 87040; 96365; 96367; 96375; 96376; 99284; 99285; J0696; J2270; J2930; J3475

== ENCOUNTER → 2020-08-22 14:24 | Outpatient (BNVA) | payer MEDICARE, MEDICAID, SELFPAY | PROVIDERS: PCP Internal Medicine; Referring Provider Internal Medicine; Visit Provider Internal Medicine | DX: J45.909 Unspecified asthma, uncomplicated (principal); J30.9 Allergic rhinitis, unspecified; F41.9 Anxiety disorder, unspecified | CPT/HCPCS: 99213 ==

== ENCOUNTER → 2020-09-01 10:59 | Outpatient (BNVA) | payer MEDICARE, MEDICAID, SELFPAY | PROVIDERS: PCP Internal Medicine; Visit Provider Physician Assistant | DX: K52.9 Noninfective gastroenteritis and colitis, unspecified (principal); J45.41 Moderate persistent asthma with (acute) exacerbation | CPT/HCPCS: 99214 ==

== ENCOUNTER 2020-09-01 13:47 | Emergency (ER) | payer MEDICARE, MEDICAID, SELFPAY | END 2020-09-01 14:37 | disposition left against medical advice (07) | PROVIDERS: Emergency Provider Emergency Medicine; PCP Internal Medicine | DX: R06.02 Shortness of breath (principal) | CPT/HCPCS: 99214; 99281 ==

== ENCOUNTER → 2020-09-07 15:59 | Outpatient (BNVA) | payer MEDICARE, MEDICAID, SELFPAY | PROVIDERS: PCP Internal Medicine; Visit Provider Internal Medicine | DX: J45.909 Unspecified asthma, uncomplicated (principal); R05 Cough; J68.3 Other acute and subacute respiratory conditions due to chemicals, gases, fumes and vapors; Z79.52 Long term (current) use of systemic steroids; Z79.899 Other long term (current) drug therapy | CPT/HCPCS: 99213 ==

== ENCOUNTER → 2020-09-14 15:02 | Outpatient (BNVA) | payer MEDICARE, MEDICAID, SELFPAY | PROVIDERS: PCP Internal Medicine; Referring Provider Internal Medicine; Visit Provider Student in an Organized Health Care Education/Training Program | DX: M05.9 Rheumatoid arthritis with rheumatoid factor, unspecified (principal) | CPT/HCPCS: 99212 ==

== ENCOUNTER → 2020-09-26 11:32 | Outpatient (BNVA) | payer MEDICARE, MEDICAID, SELFPAY | PROVIDERS: PCP Internal Medicine; Referring Provider Internal Medicine; Visit Provider Internal Medicine | DX: J45.41 Moderate persistent asthma with (acute) exacerbation (principal); Z79.52 Long term (current) use of systemic steroids; Z79.899 Other long term (current) drug therapy | CPT/HCPCS: 99212 ==

== ENCOUNTER 2020-10-06 10:20 | Outpatient (REF) | payer MEDICARE, MEDICAID, SELFPAY | END 2020-10-06 10:21 | disposition home or self-care (01) | LOC: HO.LAB 10:20 | PROVIDERS: PCP Internal Medicine; Referring Provider Internal Medicine; Visit Provider Obstetrics & Gynecology | DX: N76.4 Abscess of vulva (principal); Z79.899 Other long term (current) drug therapy; Z79.4 Long term (current) use of insulin; E11.9 Type 2 diabetes mellitus without complications; F17.210 Nicotine dependence, cigarettes, uncomplicated | CPT/HCPCS: 56405; 87071; 87077; 87147; 87186; 87205; 99212 ==

== ENCOUNTER 2020-10-18 09:37 | Outpatient (REF) | payer MEDICARE, MEDICAID, SELFPAY ==
[2020-10-18 11:06] LABS: Alanine Aminotransferase 13 U/L (0-31); Albumin Level 3.9 g/dL (3.5-5.0); Alkaline Phosphatase 84 U/L (39-117); Anion Gap 13 (12-20); Aspartate Amino Transferase 12 U/L (5-31); Bilirubin Total 0.3 mg/dL (0.0-1.0); Blood Urea Nitrogen 6 mg/dL (9-16); Carbon Dioxide 25 mmol/L (22-29); Chloride 108 mmol/L (96-108); Cholesterol 117 mg/dL; Estimated Glomerular Filt Rate > 60; Glucose Fasting 214 mg/dL (60-99); HDL Cholesterol 43 mg/dL; LDL Cholesterol Calculated 51 mg/dl; Potassium 4.5 mmol/l (3.3-5.1); Sodium 141 mmol/L (135-145); Total Protein 6.5 g/dL (6.5-8.0); Triglycerides 115 mg/dL
== END 2020-10-18 09:38 | disposition home or self-care (01) ==
LOC: HO.LAB 09:37
PROVIDERS: Absent Provider Student in an Organized Health Care Education/Training Program; PCP Internal Medicine; Visit Provider Internal Medicine
DX: E11.65 Type 2 diabetes mellitus with hyperglycemia (principal)
CPT/HCPCS: 80053; 80061

== ENCOUNTER 2020-10-18 10:15 | Outpatient (REF) | payer MEDICARE, MEDICAID, SELFPAY | END 2020-10-18 10:16 | disposition home or self-care (01) | LOC: HO.LAB 10:15 | PROVIDERS: Visit Provider Internal Medicine | DX: Z20.828 Contact with and (suspected) exposure to other viral communicable diseases (principal) | CPT/HCPCS: C9803; U0003 ==

== ENCOUNTER 2020-10-25 09:43 | Outpatient (REF) | payer MEDICARE, MEDICAID, SELFPAY ==
[2020-10-25 10:50] LABS: MANUAL DIFF FLAG NO
[2020-10-25 10:56] LABS: Basophils Percent Auto 0.4 % (0-2); Eosinophils Absolute Auto 0.1 X10*3/uL (0.0-0.4); Eosinophils Percent Auto 0.8 % (0-4); Hematocrit 43.8 % (37-47); Hemoglobin 13.9 g/dl (12.0-16.0); Imm Gran Abs Auto 0.07 X10*3/uL (0.00-0.03); Imm Gran Pct Auto 0.7 % (0.0-0.4); Lymphocytes Absolute Auto 2.7 X10*3/uL (1.2-4.9); Lymphocytes Percent Auto 28.4 % (20-40); Mean Corpuscular HGB Conc 31.7 g/dl (31.0-35.0); Mean Corpuscular Hemoglobin 29.5 pg (27.0-33.0); Mean Platelet Volume 10.6 fL (9.4-12.3); Monocytes Absolute Auto 0.7 X10*3/uL (0.1-1.2); Monocytes Percent Auto 6.8 % (2-11); Neutrophils Percent Auto 62.9 % (45-73); Platelet Count 295 X10*3/uL (160-400); Red Blood Count 4.71 X10*6/uL (4.20-5.50); Red Cell Distribution Width 12.5 % (11.0-16.0); White Blood Count 9.6 X10*3/uL (4.8-10.8)
[2020-10-25 11:29] LABS: Alanine Aminotransferase 25 U/L (0-31); Alkaline Phosphatase 93 U/L (39-117); Anion Gap 12 (12-20); Aspartate Amino Transferase 20 U/L (5-31); Bilirubin Total 0.3 mg/dL (0.0-1.0); Blood Urea Nitrogen 7 mg/dL (9-16); Calcium 9.1 mg/dL (8.4-10.2); Carbon Dioxide 28 mmol/L (22-29); Chloride 104 mmol/L (96-108); Estimated Glomerular Filt Rate > 60; Glucose Random 229 mg/dL (60-115); Potassium 4.5 mmol/l (3.3-5.1); Sodium 139 mmol/L (135-145); Total Protein 6.9 g/dL (6.5-8.0)
== END 2020-10-25 09:44 | disposition home or self-care (01) ==
LOC: HO.LAB 09:43
PROVIDERS: PCP Internal Medicine; Visit Provider Student in an Organized Health Care Education/Training Program
DX: M05.9 Rheumatoid arthritis with rheumatoid factor, unspecified (principal)
CPT/HCPCS: 36415; 80053; 85025

== ENCOUNTER 2020-10-25 10:38 | Outpatient (REF) | payer MEDICARE, MEDICAID, SELFPAY | END 2020-10-25 10:39 | disposition home or self-care (01) | LOC: HO.LAB 10:38 | PROVIDERS: Visit Provider Internal Medicine | DX: Z20.828 Contact with and (suspected) exposure to other viral communicable diseases (principal) | CPT/HCPCS: C9803; U0003 ==

== ENCOUNTER 2020-11-01 13:14 | Emergency (ER) | payer MEDICARE, MEDICAID, SELFPAY ==
[2020-11-01 13:18] VITALS: BP 135/74; PULSE 115; RESP 18; TEMP 35.9; O2SAT 97; BMI 25.0
[2020-11-01 14:42] VITALS: O2SAT 96
--- NOTE | 2020-11-01 15:09 | ED_ITS ---
HPI - General Adult General Chief complaint: General Medical Stated complaint: sob,dizzy Time Seen by Provider: 11/01/20 15:09 Source: patient Mode of arrival: ambulatory Limitations: no limitations History of Present Illness HPI narrative: shortness of breath for 2 days. Patient has back pain, cough, headache. Patient is currently on prednisone. Onset (ago): day(s) Associated symptoms: chest pain, cough, fever/chills, headaches and shortness of breath Related Data Home Medications Medication Instructions Recorded Confirmed omeprazole 40 mg BID 08/21/20 10/06/20 ondansetron HCl [Zofran] 4 mg PO Q6H 08/21/20 10/06/20 albuterol sulfate 0.63 mg/3 mL 0.63 mg INHALATION Q4H 08/24/20 10/06/20 solution for nebulization duloxetine 20 mg capsule,delayed 20 mg PO BID 08/24/20 10/06/20 release letrozole 2.5 mg tablet 2.5 mg PO DAILY 08/24/20 10/06/20 lithium carbonate 450 mg 450 mg PO BEDTIME 08/24/20 10/06/20 tablet,extended release trazodone 50 mg tablet 50 mg PO BEDTIME PRN 08/24/20 10/06/20 prednisone 10 mg tablets in a dose 10 mg PO DAILY 09/07/20 10/06/20 pack atorvastatin 40 mg tablet 40 mg PO DAILY 09/14/20 10/06/20 losartan 25 mg tablet 25 mg PO DAILY 09/14/20 10/06/20 blood sugar diagnostic #10 ea 09/26/20 10/06/20 blood-glucose meter #1 ea 09/26/20 10/06/20 cyclosporine 0.05 % eye drops in a 1 drp OPHTHALMIC (EYE) BID PRN 09/26/20 10/06/20 dropperette fluticasone propionate 230 2 puff PO BID 09/26/20 10/06/20 mcg-salmeterol 21 mcg/actuation HFA inhaler lancets 28 gauge #100 ea 09/26/20 10/06/20 meclizine 25 mg tablet 25 mg PO DAILY PRN 09/26/20 10/06/20 ondansetron 8 mg disintegrating 8 mg PO DAILY PRN 09/26/20 10/06/20 tablet pen needle, diabetic 31 gauge x #1200 ea 09/26/20 10/06/20/16 pregabalin 150 mg capsule 150 mg PO BEDTIME 09/26/20 10/06/20 pregabalin 75 mg capsule mg PO 09/26/20 10/06/20 sulfasalazine 500 mg tablet 1 g PO BID tab 09/26/20 10/06/20 tizanidine 2 mg tablet 2 mg PO BEDTIME PRN 09/26/20 10/06/20 white petrolatum-mineral oil 57.3 OPHTHALMIC (EYE) BEDTIME PRN 09/26/20 10/06/20 %-42.5 % eye ointment insulin degludec 100 unit/mL (3 35 unit SUBCUT DAILY ml 10/03/20 10/06/20 mL) subcutaneous pen Previous Rx's Medication Instructions Recorded insulin lispro 100 unit/mL See Rx Instructions SUBCUT TID 30 08/22/20 subcutaneous pen Days #15 ml montelukast 10 mg tablet 10 mg PO BEDTIME 30 Days #30 tab 09/07/20 MDD 1 linagliptin 5 mg tablet 5 mg PO DAILY #30 tab 09/08/20 diclofenac sodium 1 % topical gel 2 g TOPICAL BID #100 g 09/14/20 leflunomide 10 mg tablet 10 mg PO DAILY #30 tab 09/14/20 oxycodone-acetaminophen 5 mg-325 1 tab PO TID PRN 30 Days #90 tab 10/03/20 mg tablet sulfamethoxazole 800 1 tab PO BID #14 tab 10/07/20 mg-trimethoprim 160 mg tablet prednisone 5 mg tablet See Rx Instructions PO DAILY #30 10/20/20 tab Allergies Allergy/AdvReac Type Severity Reaction Status Date / Time dog dander [DOGS] Allergy Intermediate Respiratory Verified 10/03/20 11:00 distress ibuprofen [Ibuprofen] Allergy Unknown STOMACH Verified 10/03/20 11:00 UPSET, abdominal pain, nausea and vomiting prednisone Allergy Unknown hallucinations, Verified 10/03/20 11:00 higher than 20 shellfish derived Allergy Unknown Hives Verified 10/03/20 11:00 metformin AdvReac Unknown diarrhea Verified 10/03/20 11:00 metronidazole [From FLAGYL] AdvReac Unknown DIARRHEA Verified 10/03/20 11:00 Review of Systems Constitutional: Constitutional: Reports no additional constitutional comp laints Eyes: Eyes: Reports no additional eye complaints ENT: Denies dizziness Cardiovascular: Cardiovascular: Reports no additional cardiovascular complaints Respiratory: Respiratory: Reports as per HPI Gastrointestinal: Gastrointestinal: Reports no additional gastrointestinal complaints Genitourinary: Genitourinary: Reports no additional female genitourinary complaints Musculoskeletal: Musculoskeletal: Reports no additional musculoskeletal complaints Integumentary/Breasts: Skin/Breast: Denies rash Neurologic: Reports system reviewed and no additional complaints, except as documented, Denies dizziness and Denies Sensory deficit (Neuro) Psychiatric: Psychiatric: Denies anxiety [facility] Past Medical History Medical History Allergic rhinitis Allergic rhinitis Anxiety Asthma Bronchial asthma Colitis Depression Diabetes type 2, uncontrolled Fibromyalgia Hypertension Irritable bowel Reactive airways dysfunction syndrome Seropositive rheumatoid arthritis Surgical History H/O: hysterectomy History of bunionectomy of both great toes History of colonoscopy History of tubal ligation Family History Family History Mother Diabetes HTN (hypertension) Breast cancer Uterus cancer Malignant tumor of head Father Diabetes HTN (hypertension) CVD (cardiovascular disease) Heart problem Maternal Aunt Breast cancer Brother Myocardial infarction S/P CABG x 4 Family/Other FH: mental illness Social History Social History Alcohol intake: current Alcohol intake frequency: does not drink Smoking Status: Never smoker Tobacco Type: Cigarette Cigarettes Per Day: 1 Use of substances other than those prescribed or required for medical reasons: No Advance Directives: No Advance Directives Information Provided: No Physical Exam Vital Signs: Vital Signs: Last Vital Signs Temp 96.6 F L 11/01/20 13:18 Pulse 97 11/01/20 16:00 Resp 16 11/01/20 16:00 BP 133/83 11/01/20 16:00 Pulse Ox 97 11/01/20 16:00 Body Mass Index 25.0 Const: General: healthy appearing Nutritional Appearance: average body habitus Orientation/consciousness: oriented to person and patient oriented x3 Limitations: no limitations HENMT: Head: Yes normal to inspection Ears: external ears normal General nose exam: Normal external nose present Mouth: Normal oral and palatal mucosa present and oropharynx normal Throat: Yes posterior oropharynx normal Eyes: General: appearance normal, both eyes and all related structures Neck: Other: supple Neck: Yes normal visual inspection Chest: Chest palpation & inspection: normal inspection of the chest Resp: Other: bilateral wheezing Cardio: Other: tachycardia Jugular venous distension: no JVD Rate: regular rate Rhythm: regular rhythm Heart sounds: S1 normal heart sound present and S2 normal heart sound present GI: Inspection: Yes normal to inspection Palpation (GI): Soft to palpation, nontender and No hepatosplenomegaly present Auscultation: normal bowel sounds : General: Yes no CVA tenderness Back/Spine/Pelvis: Back: no CVA tenderness Skin: General skin exam: no rashes or lesions noted Neuro: General: oriented to person and patient oriented x3 Cranial nerves: Yes CN's II-XII intact bilaterally Motor exam (neuro): 5/5 motor strength present throughout Sensory Exam: No Sensory deficit (Neuro) Extrem: General: Yes normal to inspection Psych: Appearance: grossly normal Course Course Course Narrative: wheezing improved Reevaluation(s) Reevaluation #1: patient is positive for Covid will not increase prednisone at this time Medical Decision Making MDM Narrative Medical decision making narrative: xray negative, if COVID comes back negative will increase steroids Differential Diagnosis Differential Diagnosis: Asthma, COVID, URI Lab Data Result diagrams: 11/01/20 15:25 11/01/20 15:25 Labs: Lab Results 11/01/20 11/01/20 11/01/20 Range/Units 15:25 15:25 15:25 WBC 6.7 (4.8-10.8) X10*3/uL RBC 4.90 (4.20-5.50) X10*6/uL Hgb 14.7 (12.0-16.0) g/dl Hct 45.0 (37-47) % MCV 91.8 (80-98) fL MCH 30.0 (27.0-33.0) pg MCHC 32.7 (31.0-35.0) g/dl RDW 12.9 (11.0-16.0) % Plt Count 222 (160-400) X10*3/uL MPV 11.2 (9.4-12.3) fL Immature Gran % (Auto) 0.6 H (0.0-0.4) % Neut % (Auto) 56.9 (45-73) % Lymph % (Auto) 33.2 (20-40) % [place] % (Auto) 8.1 (2-11) % Eos % (Auto) 0.9 (0-4) % Baso % (Auto) 0.3 (0-2) % Lymph # (Auto) 2.2 (1.2-4.9) X10*3/uL [place] # (Auto) 0.5 (0.1-1.2) X10*3/uL Eos # (Auto) 0.1 (0.0-0.4) X10*3/uL Baso # (Auto) 0.0 (0.0-0.2) X10*3/uL Abs Immat Gran (auto) 0.04 H (0.00-0.03) X10*3/uL Absolute Neuts (auto) 3.8 (2.0-8.3) X10*3/uL Absolute Nucleated RBC 0.000 (0.0-0.012) X10*3/uL Nucleated RBC % (auto) 0.0 (0.0-0.2) /100WBC Sodium 138 (135-145) mmol/L Potassium 4.1 (3.3-5.1) mmol/l Chloride 104 (96-108) mmol/L Carbon Dioxide 25 (22-29) mmol/L Anion Gap 13 (12-20) BUN 6 L (9-16) mg/dL Creatinine 0.84 (0.5-1.4) mg/dL Estim Creat Clear Calc 53.3 Estimated GFR > 60 Random Glucose 231 H (60-115) mg/dL Calcium 9.6 (8.4-10.2) mg/dL Coronavirus (PCR) POSITIVE A (Negative) Influenza Type A (PCR) NEGATIVE (Negative) Influenza Type B (PCR) NEGATIVE (Negative) RSV RNA Qual (PCR) NEGATIVE (Negative) Imaging Data Chest x-ray: Attestation: I personally reviewed and interpreted this imaging study as follows: My impression: no infiltrate Discharge Plan Discharge Clinical Impression: COVID-19 Patient Disposition: Home, Self-Care Instructions: COVID-19 (Coronavirus Disease 2019) (ED) Additional Instructions: return for increasing SOB my take tylenol and motrin for aches and pains Prescriptions: No Action insulin lispro [Humalog KwikPen Insulin] 100 unit/mL insulin pen See Rx Instructions subcut TID 30 Days Qty: 15 RF: 2 linagliptin [Tradjenta] 5 mg tablet 5 mg PO DAILY Qty: 30 RF: 11 sulfamethoxazole-trimethoprim [Bactrim DS] 800-160 mg tablet 1 tab PO BID Qty: 14 RF: 0 prednisone 5 mg tablet See Rx Instructions PO DAILY Qty: 30 RF: 0 omeprazole 40 mg BID RF: 0 Hold Instructions: Resume on 08/28/20. ondansetron HCl [Zofran] 4 mg Tablet 4 mg PO Q6H RF: 0 oxycodone-acetaminophen [Percocet] 5-325 mg tablet 1 tab PO TID PRN (Reason: pain) 30 Days Qty: 90 RF: 0 trazodone 50 mg tablet 50 mg PO BEDTIME PRNRF: 0 albuterol sulfate 0.63 mg/3 mL solution for nebulization 0.63 mg inhalation Q4H RF: 0 lithium carbonate 450 mg tablet extended release 450 mg PO BEDTIME RF: 0 letrozole 2.5 mg tablet 2.5 mg PO DAILY RF: 0 duloxetine [Cymbalta] 20 mg capsule,delayed release(DR/EC) 20 mg PO BID RF: 0 Tresiba FlexTouch U-100 100 unit/mL (3 mL) insulin pen 35 unit subcut DAILY RF: 0 prednisone 10 mg tablets,dose pack 10 mg PO DAILY RF: 0 montelukast [Singulair] 10 mg tablet 10 mg PO BEDTIME MDD 1 30 Days Qty: 30 RF: 3 atorvastatin 40 mg tablet 40 mg PO DAILY RF: 0 losartan 25 mg tablet 25 mg PO DAILY RF: 0 leflunomide [Arava] 10 mg tablet 10 mg PO DAILY Qty: 30 RF: 2 diclofenac sodium [Voltaren] 1 % gel 2 g topical BID Qty: 100 RF: 0 sulfasalazine 500 mg tablet 1 g PO BID RF: 0 Refresh P.M. 57.3-42.5 % ointment ophthalmic (eye) BEDTIME PRNRF: 0 Restasis 0.05 % dropperette 1 drp ophthalmic (eye) BID PRNRF: 0 Advair HFA 230-21 mcg/actuation HFA aerosol inhaler 2 puff PO BID RF: 0 meclizine 25 mg tablet 25 mg PO DAILY PRNRF: 0 tizanidine 2 mg tablet 2 mg PO BEDTIME PRNRF: 0 ondansetron 8 mg tablet,disintegrating 8 mg PO DAILY PRNRF: 0 (DME) lancets 28 gauge misc See Rx Instructions ea Not Applicable DAILY Qty: 100 RF: 0 (DME) blood-glucose meter Kit See Rx Instructions ea .ROUTE DIRECTED Qty: 1 RF: 0 pregabalin 75 mg capsule PO RF: 0 pregabalin 150 mg capsule 150 mg PO BEDTIME RF: 0 (DME) pen needle, diabetic 31 gauge x 5/16 needle See Rx Instructions ea .ROUTE DAILY Qty: 1200 RF: 0 (DME) FreeStyle Lite Strips Strip See Rx Instructions ea Not Applicable DAILY Qty: 10 RF: 0 Referrals: Adela Gipson MD [Primary Care Provider] - 2 days
--- NOTE | 2020-11-01 15:16 | XR_ITS ---
EXAMINATION: XR CHEST CLINICAL INFORMATION: Cough, shortness of breath COMPARISON: Chest radiographs 08/21/2020, 08/10/2020 TECHNIQUE: Portable upright AP view of the chest was obtained. FINDINGS: Lungs are clear. There is no airspace consolidation or groundglass opacity or effusion. The heart is normal in size. Vascularity is normal. The hilar and mediastinal contours and bony structures are unremarkable. XR/XR chest 1V IMPRESSION: Unremarkable examination.
[2020-11-01 15:35] LABS: Basophils Percent Auto 0.3 % (0-2); Eosinophils Absolute Auto 0.1 X10*3/uL (0.0-0.4); Eosinophils Percent Auto 0.9 % (0-4); Hemoglobin 14.7 g/dl (12.0-16.0); Imm Gran Abs Auto 0.04 X10*3/uL (0.00-0.03); Imm Gran Pct Auto 0.6 % (0.0-0.4); Lymphocytes Absolute Auto 2.2 X10*3/uL (1.2-4.9); Lymphocytes Percent Auto 33.2 % (20-40); Mean Corpuscular HGB Conc 32.7 g/dl (31.0-35.0); Mean Corpuscular Volume 91.8 fL (80-98); Mean Platelet Volume 11.2 fL (9.4-12.3); Monocytes Absolute Auto 0.5 X10*3/uL (0.1-1.2); Monocytes Percent Auto 8.1 % (2-11); Neutrophils Absolute Auto 3.8 X10*3/uL (2.0-8.3); Neutrophils Percent Auto 56.9 % (45-73); Platelet Count 222 X10*3/uL (160-400); Red Cell Distribution Width 12.9 % (11.0-16.0); White Blood Count 6.7 X10*3/uL (4.8-10.8)
[2020-11-01 15:36] LABS: MANUAL DIFF FLAG NO
[2020-11-01] MEDS: Albuterol Sulfate 90 MCG 8 GM INHALER 2 PUFF INHALE (15:44)
[2020-11-01 15:46] VITALS: PULSE 106; O2SAT 96
[2020-11-01 16:00] VITALS: BP 133/83; PULSE 97; RESP 16; O2SAT 97
[2020-11-01 16:04] LABS: Anion Gap 13 (12-20); Blood Urea Nitrogen 6 mg/dL (9-16); Calcium 9.6 mg/dL (8.4-10.2); Carbon Dioxide 25 mmol/L (22-29); Chloride 104 mmol/L (96-108); Creatinine Clr Calc Pharmacy 53.3; Estimated Glomerular Filt Rate > 60; Glucose Random 231 mg/dL (60-115); Potassium 4.1 mmol/l (3.3-5.1); Sodium 138 mmol/L (135-145)
[2020-11-01 16:15] LABS: Influenza A PCR NEGATIVE (Negative); Influenza B PCR NEGATIVE (Negative); Resp Syncy Virus RNA Qual PCR NEGATIVE (Negative); SARS COV2 PCR INHOUSE POSITIVE (Negative)
[2020-11-01] MEDS: Acetaminophen 325 MG TABLET 975 MG PO (16:33)
== END 2020-11-01 17:01 | disposition home or self-care (01) ==
PROVIDERS: Emergency Provider Emergency Medicine; PCP Internal Medicine
DX: U07.1 COVID-19 (principal); R06.02 Shortness of breath; R05 Cough; M54.5 Low back pain; R51.9 Headache, unspecified; Z79.899 Other long term (current) drug therapy
CPT/HCPCS: 0241U; 36415; 71045; 80048; 85025; 94640; 99284

== ENCOUNTER 2020-11-14 10:32 | Outpatient (REF) | payer MEDICARE, MEDICAID, SELFPAY ==
[2020-11-14 12:11] LABS: Hematocrit 43.3 % (37-47); Hemoglobin 13.8 g/dl (12.0-16.0); Mean Corpuscular HGB Conc 31.9 g/dl (31.0-35.0); Mean Corpuscular Hemoglobin 29.2 pg (27.0-33.0); Mean Corpuscular Volume 91.5 fL (80-98); Mean Platelet Volume 11.8 fL (9.4-12.3); Platelet Count 234 X10*3/uL (160-400); Red Blood Count 4.73 X10*6/uL (4.20-5.50); White Blood Count 7.4 X10*3/uL (4.8-10.8)
[2020-11-14 12:24] LABS: Lithium 0.55 mmol/L (0.60-1.20)
[2020-11-14 12:28] LABS: Anion Gap 10 (12-20); Blood Urea Nitrogen 6 mg/dL (9-16); Calcium 9.5 mg/dL (8.4-10.2); Carbon Dioxide 29 mmol/L (22-29); Chloride 102 mmol/L (96-108); Estimated Glomerular Filt Rate > 60; Glucose Random 291 mg/dL (60-115); Potassium 4.2 mmol/l (3.3-5.1); Sodium 137 mmol/L (135-145)
[2020-11-14 12:52] LABS: Free T4 (Free Thyroxine) 0.81 ng/dL (0.71-1.85); Thyroid Stimulating Hormone 1.33 uIU/mL (0.32-4.0)
[2020-11-15 16:56] LABS: Calcium, Ionized 5.3 mg/dL (4.8-5.6)
== END 2020-11-14 10:33 | disposition home or self-care (01) ==
LOC: HO.LAB 10:32
PROVIDERS: PCP Internal Medicine; Visit Provider Clinical Nurse Specialist Psychiatric/Mental Health, Child & Adolescent
DX: Z13.89 Encounter for screening for other disorder (principal)
CPT/HCPCS: 36415; 80048; 80178; 82330; 84439; 84443; 85027

== ENCOUNTER 2020-11-14 11:25 | Outpatient (REF) | payer MEDICARE, MEDICAID, SELFPAY | END 2020-11-14 11:26 | disposition home or self-care (01) | LOC: HO.LAB 11:25 | PROVIDERS: Visit Provider Internal Medicine | DX: Z20.828 Contact with and (suspected) exposure to other viral communicable diseases (principal) | CPT/HCPCS: 36415; 80048; 80178; 82330; 84439; 84443; 85027; C9803; U0003 ==

== ENCOUNTER 2020-11-22 09:31 | Outpatient (REF) | payer MEDICARE, MEDICAID, SELFPAY ==
--- NOTE | 2020-11-22 09:38 | MM_ITS ---
EXAMINATION: BONE DENSITOMETRY CLINICAL INDICATION: Other specified disorders of bone density and structure. COMPARISON: Previous BD dated 04/08/2018 and baseline BD dated 08/11/2008 (spine and left hip). This is the patient's baseline examination for the forearm radius 33%. TECHNIQUE: Using a [employer] DXA System (software version: 13.1) manufactured by [employer], dual-energy x-ray absorptiometry was performed of the lumbar spine, left hip, and left forearm radius 33%. The images are of good technical quality. Summary results are attached. FINDINGS: AP SPINE L1-L4: Current: BMD 0.920 g/cm2, Z-score -0.7, T-score -2.2, osteopenia, 2.1% decrease from previous, 8.9% decrease from baseline (<5% change is not significant). Prior: BMD 0.940 g/cm2. Baseline: BMD 1.010 g/cm2. LEFT FEMUR, NECK: Current: BMD 0.734 g/cm2, Z-score -0.8, T-score -2.2, osteopenia. Prior: BMD 0.786 g/cm2. Baseline: BMD 0.815 g/cm2. LEFT FEMUR, TOTAL: Current: BMD 0.875 g/cm2, Z-score 0.0, T-score -1.1, osteopenia, 2.5% decrease from previous, 6.9% decrease from baseline (<5% change is not significant). Prior: BMD 0.897 g/cm2. Baseline: BMD 0.940 g/cm2. LEFT FOREARM RADIUS 33%: BMD 0.686 g/cm2, Z-score -1.4, T-score -2.2, osteopenia. Prior: Not previously measured. IDENTIFIED RISK FACTORS: Rheumatoid arthritis, hyperparathyroidism, tobacco use (current smoker), height loss, low calcium intake. Early menopause, secondary osteoporosis, glucocorticoids (chronic), hysterectomy. HISTORY OF FRACTURE: None listed. MEDICATIONS: ERT/SERMS. MM/XR DEXA appendicular skeleton IMPRESSION: 1. DIAGNOSIS: Osteopenia based on the lowest T-score value of -2.2 in the lumbar spine, femur neck and forearm applying World Health Organization criteria. 2. 10-YEAR FRACTURE RISK PREDICTION, FRAX: Major osteoporotic fracture (clinical spine, forearm, hip or shoulder) 12.4%. Hip fracture 3.6%. 3. Treatment Recommendations: NOF guidelines recommend consideration for treatment in postmenopausal women and men age 50 and older presenting with the following: -A hip or vertebral (clinical or morphometric) fracture. -T-score less than or equal to -2.5 at the femoral neck or spine after appropriate evaluation to exclude secondary causes. -Low bone mass at the hip or spine and a 10-year fracture probability by FRAX of greater than or equal to 3% for hip fracture or greater than or equal to 20% for major osteoporotic fracture based on the [place] adapted WHO algorithm. 4. Other Recommendations: All treatment decisions require clinical judgment and consideration of individual patient factors, including patient preferences, comorbidities, previous drug use, risk factors not captured in the FRAX model (e.g. frailty, falls, vitamin D deficiency, increased bone turnover, interval significant decline in bone density) and possible under or overestimation of fracture risk by FRAX. Additional medical evaluation for secondary cause of low bone mineral density may be appropriate. FUTURE SCAN RECOMMENDATION: People with diagnosed cases of osteoporosis or at high risk for fracture should have regular bone mineral density tests. For patients eligible for Medicare, routine testing is allowed once every 2 years. The testing frequency can be increased to one year for patients who have rapidly progressing disease, those who are receiving or discontinuing medical therapy to restore bone mass, or have additional risk factors.
--- NOTE | 2020-11-22 10:14 | MM_ITS ---
EXAMINATION: MM DIAGNOSTIC DIGITAL BREAST TOMOSYNTHESIS, BILATERAL CLINICAL INFORMATION: History left invasive ductal cancer, status post lumpectomy 11/26/2018. Due for yearly exam. COMPARISON: Mammography: 11/03/2019, 11/07/2018, 10/24/2018 TECHNIQUE: Digital breast tomosynthesis is performed in both the craniocaudal and mediolateral oblique views along with computer-aided detection (CAD). Synthesized 2D images are generated from the tomosynthesis. Additional views are provided: Exaggerated right CC, magnification left CC, magnification left ML. FINDINGS: There are scattered areas of fibroglandular density (ACR BI-RADS breast composition Category b). Parenchymal pattern is similar to prior exams. There are minor postsurgical changes again seen lower left breast. Neither breast shows interval mass or architectural abnormality or abnormal calcifications. No significant changes. Results are provided to the patient at time of visit by the technologist. MM/MM tomosynthesis diagnostic BI IMPRESSION: No mammographic evidence of malignancy. Minor stable post therapy changes left breast. ASSESSMENT: BI-RADS 2: Benign RECOMMENDATION: Annual bilateral mammography. This patient's information was entered into a reminder system with a target due date for their next mammogram.
== END 2020-11-22 09:32 | disposition home or self-care (01) ==
LOC: HO.MAMMO 09:31
PROVIDERS: PCP Internal Medicine; Visit Provider Internal Medicine
DX: Z85.3 Personal history of malignant neoplasm of breast (principal); Z13.820 Encounter for screening for osteoporosis; M85.89 Other specified disorders of bone density and structure, multiple sites
CPT/HCPCS: 77062; 77066; 77080; 77081

== ENCOUNTER → 2020-11-23 11:47 | Outpatient (BNVA) | payer MEDICARE, MEDICAID, SELFPAY | PROVIDERS: PCP Internal Medicine; Visit Provider Internal Medicine | DX: Z13.89 Encounter for screening for other disorder (principal) | CPT/HCPCS: Q3014 ==

== ENCOUNTER 2020-11-24 10:48 | Outpatient (REF) | payer MEDICARE, MEDICAID, SELFPAY ==
[2020-11-24 12:05] LABS: MANUAL DIFF FLAG NO
[2020-11-24 12:16] LABS: Basophils Absolute Auto 0.1 X10*3/uL (0.0-0.2); Basophils Percent Auto 0.6 % (0-2); Eosinophils Absolute Auto 0.1 X10*3/uL (0.0-0.4); Eosinophils Percent Auto 1.3 % (0-4); Hematocrit 40.6 % (37-47); Hemoglobin 13.1 g/dl (12.0-16.0); Imm Gran Abs Auto 0.05 X10*3/uL (0.00-0.03); Imm Gran Pct Auto 0.5 % (0.0-0.4); Lymphocytes Absolute Auto 1.9 X10*3/uL (1.2-4.9); Lymphocytes Percent Auto 18.6 % (20-40); Mean Corpuscular HGB Conc 32.3 g/dl (31.0-35.0); Mean Corpuscular Hemoglobin 29.3 pg (27.0-33.0); Mean Corpuscular Volume 90.8 fL (80-98); Mean Platelet Volume 11.7 fL (9.4-12.3); Monocytes Absolute Auto 0.7 X10*3/uL (0.1-1.2); Monocytes Percent Auto 6.7 % (2-11); Neutrophils Absolute Auto 7.4 X10*3/uL (2.0-8.3); Neutrophils Percent Auto 72.3 % (45-73); Platelet Count 263 X10*3/uL (160-400); Red Blood Count 4.47 X10*6/uL (4.20-5.50); Red Cell Distribution Width 13.2 % (11.0-16.0); White Blood Count 10.2 X10*3/uL (4.8-10.8)
[2020-11-24 12:38] LABS: Alanine Aminotransferase 17 U/L (0-31); Alkaline Phosphatase 75 U/L (39-117); Anion Gap 12 (12-20); Aspartate Amino Transferase 13 U/L (5-31); Bilirubin Total 0.4 mg/dL (0.0-1.0); Blood Urea Nitrogen 6 mg/dL (9-16); Calcium 9.4 mg/dL (8.4-10.2); Carbon Dioxide 26 mmol/L (22-29); Chloride 104 mmol/L (96-108); Cholesterol 114 mg/dL; Estimated Glomerular Filt Rate > 60; Glucose Random 272 mg/dL (60-115); HDL Cholesterol 38 mg/dL; LDL Cholesterol Calculated 54 mg/dl; Phosphorus 2.9 mg/dL (2.7-4.5); Potassium 4.3 mmol/l (3.3-5.1); Sodium 138 mmol/L (135-145); Total Protein 6.6 g/dL (6.5-8.0); Triglycerides 111 mg/dL
[2020-11-24 12:46] LABS: Thyroid Stimulating Hormone 0.92 uIU/mL (0.32-4.0); Vitamin D 25-OH Total 21.9 ng/mL (>30)
[2020-11-24 13:00] LABS: Creatinine Urine 52.92 mg/dL; Microalbum/Creatinine Ratio Ur 22.6 ug/mg cr
[2020-11-24 13:03] LABS: Estimated Average Glucose 306 mg/dL; Hemoglobin A1c % 12.3 %
[2020-11-24 13:52] LABS: Erythrocyte Sedimentation Rate 9 MM/HR (0-20)
[2020-11-25 07:42] LABS: LDL Cholesterol Direct 60 mg/dL (<100)
[2020-11-25 18:47] LABS: Calcium (PTHI) 9.7 mg/dL (8.6-10.4); PTHI 32 pg/mL (14-64)
== END 2020-11-24 10:49 | disposition home or self-care (01) ==
LOC: HO.LAB 10:48
PROVIDERS: Absent Provider Student in an Organized Health Care Education/Training Program; PCP Internal Medicine; Visit Provider Internal Medicine
DX: M05.9 Rheumatoid arthritis with rheumatoid factor, unspecified (principal); E11.65 Type 2 diabetes mellitus with hyperglycemia; Z79.4 Long term (current) use of insulin; E21.3 Hyperparathyroidism, unspecified
CPT/HCPCS: 36415; 80053; 80061; 82043; 82306; 83036; 83721; 83970; 84100; 84439; 84443; 85025; 85652; 86140

== ENCOUNTER 2020-11-25 10:40 | Outpatient (REF) | payer MEDICARE, MEDICAID, SELFPAY ==
--- NOTE | 2020-11-25 10:53 | XR_ITS ---
EXAMINATION: XR FOOT, LEFT CLINICAL INFORMATION: Pain in left foot. COMPARISON: None TECHNIQUE: AP, lateral, and oblique views of the left foot. FINDINGS: The bones and soft tissues are normal. No fracture. Alignment is anatomic. Joint spaces are maintained. XR/XR foot LT 2V IMPRESSION: Unremarkable left foot exam.
--- NOTE | 2020-11-25 10:59 | CT_ITS ---
EXAMINATION: CT CHEST SCREENING CLINICAL INFORMATION: Former smoker. COMPARISON: CTA chest 08/21/2020. TECHNIQUE: Multidetector volumetric CT imaging of the chest is performed without contrast using low dose technique. Additional 2D coronal and sagittal reformatted images and axial 3D maximum intensity projection (MIP) images are generated on the CT workstation. This CT examination was performed using dose optimization techniques as appropriate, variously including the following: *Automated exposure control *Adjustment of mA and/or kV according to patient size (this includes techniques or standardized protocols for targeted exams where dose is matched to indication/reason for exam; i.e. extremities or head) *Use of iterative reconstruction technique DLP: 151 mGy-cm FINDINGS: LUNGS: Lungs are well expanded and clear of acute pneumonic consolidation. There is a 3 mm calcified nodule left upper lobe axial image 13/4, 4 mm and 2 mm nodules along the right major fissure on axial images 228/6 and 230/6 most likely lymph nodes, 2 mm nodule left lower lobe axial image 312/6. There are atelectatic changes in the lingula, right middle lobe, left and right upper lobes. MEDIASTINUM: The thyroid lobes are symmetrical and normal. The central trachea and the bronchi are widely patent. The heart size and the great vessels are normal caliber. There are coronary artery calcifications. No pericardial effusion seen there are coronary artery calcifications present. PLEURA: There is no pleural effusion. No pleural mass or thickening. AXILLA: Small shotty lymph nodes are seen in the axilla. UPPER ABDOMEN: The liver is mildly attenuated. No focal lesion seen. The gallbladder is contracted. Bilateral adrenal glands and the pancreas are unremarkable. OSSEOUS STRUCTURES: No lytic or sclerotic process seen. CT/CT lung screening IMPRESSION: Small calcified nodule left upper lobe and right major fissural nodules. ASSESSMENT: Lung-RADS category 2: Benign RECOMMENDATION: Low dose annual CT chest.
== END 2020-11-25 10:41 | disposition home or self-care (01) ==
LOC: HO.CT 10:40
PROVIDERS: Absent Provider Internal Medicine; PCP Internal Medicine; Visit Provider Surgery
DX: Z12.2 Encounter for screening for malignant neoplasm of respiratory organs (principal); M79.672 Pain in left foot; Z87.891 Personal history of nicotine dependence
CPT/HCPCS: 71271; 73620

== ENCOUNTER 2020-11-28 10:51 | Outpatient (REF) | payer MEDICARE, MEDICAID, SELFPAY ==
[2020-11-28 11:35] LABS: Creatinine, mg/dL 35.32
[2020-11-28 12:10] LABS: Creatinine, 24Hr Urine 0.8 G/Day (1.0-2.0); Total Volume 24 Hour Urine 2300 mL
[2020-11-29 17:27] LABS: Calcium, 24 Hr Urine 297 mg/24 h; Calcium/Creatinine Ratio 339 mg/g creat (30-275); Creatinine 24Hr Urine 0.87 g/24 h (0.50-2.15)
== END 2020-11-28 10:52 | disposition home or self-care (01) ==
LOC: HO.LNP 10:51
PROVIDERS: Visit Provider Internal Medicine
DX: M81.0 Age-related osteoporosis without current pathological fracture (principal)
CPT/HCPCS: 82340; 82570

== ENCOUNTER → 2020-12-01 13:15 | Outpatient (BNVA) | payer MEDICARE, MEDICAID, SELFPAY | PROVIDERS: PCP Internal Medicine; Visit Provider Internal Medicine Gastroenterology | DX: Z76.89 Persons encountering health services in other specified circumstances (principal) | CPT/HCPCS: Q3014 ==

== ENCOUNTER → 2020-12-07 07:26 | Outpatient (BNVA) | payer MEDICARE, MEDICAID, SELFPAY | PROVIDERS: PCP Internal Medicine; Referring Provider Internal Medicine; Visit Provider Internal Medicine | DX: Z13.89 Encounter for screening for other disorder (principal) | CPT/HCPCS: Q3014 ==

== ENCOUNTER 2020-12-13 13:17 | Outpatient (REF) | payer MEDICARE, MEDICAID, SELFPAY ==
--- NOTE | 2020-12-13 13:27 | US_ITS ---
EXAMINATION: US THYROID CLINICAL INFORMATION: Nontoxic single thyroid nodule. COMPARISON: Ultrasound thyroid soft tissues 11/30/2019. TECHNIQUE: Linear transducer grayscale and color Doppler examination with attention to the region of the thyroid. FINDINGS: SIZE: Measurements of the thyroid lobes and nodules are given in sagittal, anteroposterior and transverse dimensions respectively. Right thyroid lobe: 3.9 x 1.7 x 1.4 cm, volume 4.9 mL. Previously 4.3 x 1.9 x 1.5 cm, volume 6.4 mL. Left thyroid lobe: 4.3 x 1.4 x 1.2 cm, volume 3.8 mL. Previously 4.1 x 1.4 x 1.3 cm, volume 3.7 mL. Isthmus: 0.3 cm in maximum AP dimension. Previously 0.2 cm. PARENCHYMA: The gland echotexture is homogeneous. Thyroid vascularity is normal. RIGHT THYROID LOBE: No nodules. ISTHMUS: No nodules. LEFT THYROID LOBE: No nodules. NODES: No lymphadenopathy is seen in the tissue surrounding the thyroid gland. US/US thyroid IMPRESSION: Unremarkable thyroid gland with no nodule seen. Right thyroid nodule seen on the previous exam is not visualized at this time.
== END 2020-12-13 13:18 | disposition home or self-care (01) ==
LOC: HO.US 13:17
PROVIDERS: Visit Provider Internal Medicine
DX: Z13.89 Encounter for screening for other disorder (principal)
CPT/HCPCS: 76536

== ENCOUNTER 2020-12-13 13:50 | Emergency (ER) | payer MEDICARE, MEDICAID, SELFPAY ==
[2020-12-13 14:08] VITALS: BP 127/64; PULSE 92; RESP 16; TEMP 37; O2SAT 96; BMI 25.0
--- NOTE | 2020-12-13 14:23 | XR_ITS ---
EXAMINATION: XR LUMBOSACRAL SPINE CLINICAL INFORMATION: Low back pain rating down legs. COMPARISON: None TECHNIQUE: Three views of the lumbosacral spine. FINDINGS: There is normal lumbar lordosis. The vertebral heights and alignment is normal. There is loss of L5-S1 disc height. Rest of the disc heights are normal. The paravertebral soft tissues are normal no lytic or sclerotic process seen. XR/XR lumbar spine 2-3V IMPRESSION: Mild degenerative disc changes at L5/S1 disc levels. No visible acute fracture or dislocation seen.
--- NOTE | 2020-12-13 14:23 | XR_ITS ---
EXAMINATION: LEFT FOOT AND LEFT ANKLE. CLINICAL INFORMATION: Left foot pain COMPARISON: None TECHNIQUE: 3 views left foot and 2 views left ankle. FINDINGS: LEFT FOOT: There is no visible acute fracture, dislocation or subluxation seen. The soft tissues are normal. LEFT ANKLE: The ankle mortise and subtalar joints are normal. There is mild lateral malleolar soft tissue swelling. XR/XR foot LT 2V IMPRESSION: Unremarkable left foot exam. Mild lateral malleolar soft tissue swelling. No visible acute fracture seen.
--- NOTE | 2020-12-13 14:23 | XR_ITS ---
EXAMINATION: LEFT FOOT AND LEFT ANKLE. CLINICAL INFORMATION: Left foot pain COMPARISON: None TECHNIQUE: 3 views left foot and 2 views left ankle. FINDINGS: LEFT FOOT: There is no visible acute fracture, dislocation or subluxation seen. The soft tissues are normal. LEFT ANKLE: The ankle mortise and subtalar joints are normal. There is mild lateral malleolar soft tissue swelling. XR/XR ankle LT min 3V IMPRESSION: Unremarkable left foot exam. Mild lateral malleolar soft tissue swelling. No visible acute fracture seen.
[2020-12-13] MEDS: Ketorolac Tromethamine 30 MG/ML VIAL IM (14:36)
[2020-12-13 14:40] LABS: Glucose Urine UA NEG (NEG); Leukocyte Esterase Urine NEG (NEG); Nitrite Urine NEG (NEG); PH 7.5 (5.0-8.0); Specific Gravity - Urine 1.015 (1.005-1.025); Urine Blood NEG (NEG); Urine Ketones NEG (NEG); Urine Protein NEG (NEG-TRACE)
[2020-12-13 14:43] LABS: Appearance Urine CLEAR; Color Urine YELLOW
[2020-12-13] MEDS: Cyclobenzaprine HCl 5 MG TABLET PO (15:06)
--- NOTE | 2020-12-13 15:38 | ED.BACK ---
HPI - Back Pain/Injury General Chief Complaint: Back Pain/Injury Stated Complaint: BACK LEG PAIN Source: patient Mode of arrival: ambulatory Limitations: no limitations History of Present Illness HPI Narrative: Patient presents to ED for lower back pain radiating down both legs. Patient denies any trauma to back or lower extremities. Patient denies any fever, chills, nausea, vomiting, flank pain, dysuria, abdominal pain, or hematuria. Patient also states mild swelling of left lateral malleus of ankle. Patient denies any trauma to left lower extremity. Patient states no chest pain or shortness of breath. Patient denies any urinary or bowel incontinence. MD elicited complaint: back pain Related Data Home Medications Medication Instructions Recorded Confirmed omeprazole 40 mg BID 08/21/20 12/07/20 ondansetron HCl [Zofran] 4 mg PO Q6H 08/21/20 12/07/20 albuterol sulfate 0.63 mg/3 mL 0.63 mg INHALATION Q4H 08/24/20 12/07/20 solution for nebulization duloxetine 20 mg capsule,delayed 20 mg PO BID 08/24/20 12/07/20 release letrozole 2.5 mg tablet 2.5 mg PO DAILY 08/24/20 12/07/20 lithium carbonate 450 mg 450 mg PO BEDTIME 08/24/20 12/07/20 tablet,extended release prednisone 10 mg tablets in a dose 10 mg PO DAILY ea 09/07/20 12/07/20 pack atorvastatin 40 mg tablet 40 mg PO DAILY 09/14/20 12/07/20 losartan 25 mg tablet 25 mg PO DAILY 09/14/20 12/07/20 blood sugar diagnostic #10 ea 09/26/20 12/07/20 blood-glucose meter #1 ea 09/26/20 12/07/20 fluticasone propionate 230 2 puff PO BID 09/26/20 12/07/20 mcg-salmeterol 21 mcg/actuation HFA inhaler lancets 28 gauge #100 ea 09/26/20 12/07/20 meclizine 25 mg tablet 25 mg PO DAILY PRN 09/26/20 12/07/20 ondansetron 8 mg disintegrating 8 mg PO DAILY PRN 09/26/20 12/07/20 tablet pregabalin 150 mg capsule 150 mg PO BEDTIME 09/26/20 12/07/20 pregabalin 75 mg capsule mg PO 09/26/20 12/07/20 sulfasalazine 500 mg tablet 1 g PO BID tab 09/26/20 12/07/20 white petrolatum-mineral oil 57.3 OPHTHALMIC (EYE) BEDTIME PRN 09/26/20 12/07/20 %-42.5 % eye ointment insulin degludec 100 unit/mL (3 35 unit SUBCUT DAILY ml 10/03/20 12/07/20 mL) subcutaneous pen cyclosporine 0.05 % eye drops in a 1 drp OPHTHALMIC (EYE) BID PRN 11/23/20 12/07/20 dropperette trazodone 50 mg tablet 100 mg PO BEDTIME PRN tab 11/23/20 12/07/20 Previous Rx's Medication Instructions Recorded linagliptin 5 mg tablet 5 mg PO DAILY #30 tab 09/08/20 oxycodone-acetaminophen 5 mg-325 1 tab PO TID PRN 30 Days #90 tab 10/03/20 mg tablet sulfamethoxazole 800 1 tab PO BID #14 tab 10/07/20 mg-trimethoprim 160 mg tablet diclofenac sodium 1 % topical gel 2 g TOPICAL BID #100 g 11/08/20 pen needle, diabetic 31 gauge x #100 ea 11/23/2004/02 insulin aspart U-100 100 unit/mL 5 unit SUBCUT TID 30 Days #4.5 ml 11/28/20 (3 mL) subcutaneous pen montelukast 10 mg tablet 10 mg PO BEDTIME #90 tab 11/28/20 prednisone 2.5 mg tablet 2.5 mg PO QAM #30 tab 11/30/20 sennosides 8.6 mg-docusate sodium 1 tab-cap PO BEDTIME PRN #60 tab 12/01/20 50 mg tablet albuterol sulfate 90 mcg/actuation 2 puff INHALATION Q4H PRN #8.5 g 12/02/20 aerosol inhaler leflunomide 10 mg tablet 10 mg PO DAILY #90 tab 12/06/20 cholecalciferol (vitamin D3) 25 25 mcg PO DAILY 30 Days #30 cap 12/07/20 mcg (1,000 unit) capsule tizanidine 2 mg tablet 2 mg PO BEDTIME PRN #30 tab 12/07/20 tramadol 50 mg PO TID PRN #9 tab 12/13/20 Allergies Allergy/AdvReac Type Severity Reaction Status Date / Time dog dander [DOGS] Allergy Intermediate Respiratory Verified 12/01/20 13:17 distress ibuprofen [Ibuprofen] Allergy Unknown STOMACH Verified 12/01/20 13:17 UPSET, abdominal pain, nausea and vomiting prednisone Allergy Unknown hallucinations, Verified 12/01/20 13:17 higher than 20 shellfish derived Allergy Unknown Hives Verified 12/01/20 13:17 metformin AdvReac Unknown diarrhea Verified 12/01/20 13:17 metronidazole [From FLAGYL] AdvReac Unknown DIARRHEA Verified 12/01/20 13:17 Review of Systems Review of Systems: Yes all other systems are reviewed and are negative Constitutional: Constitutional: Reports as per HPI and Reports no additional constitutional complaints Eyes: Eyes: Reports as per HPI and Reports no additional eye complaints ENT: Reports system reviewed and no additional complaints, except as documented and Reports as per HPI Cardiovascular: Cardiovascular: Reports as per HPI and Reports no additional cardiovascular complaints Respiratory: Respiratory: Reports as per HPI and Reports no additional respiratory complaints Gastrointestinal: Gastrointestinal: Reports as per HPI and Reports no additional gastrointestinal complaints Genitourinary: Genitourinary: Reports no additional female genitourinary complaints and Reports as per HPI Musculoskeletal: Musculoskeletal: Reports no additional musculoskeletal complaints, Reports as per HPI and Reports back pain Comments: Back pain rating down both leg. Ankle malleus pain/swelling. Neurologic: Reports system reviewed and no additional complaints, except as documented and Reports as per HPI Psychiatric: Psychiatric: Reports no additional psychiatric complaints and Reports as per HPI PMFSH Past Medical History Medical History Allergic rhinitis Allergic rhinitis Anxiety Asthma Breast cancer Bronchial asthma Colitis Depression Diabetes type 2, uncontrolled Fibromyalgia Hyperparathyroidism Hypertension Hypothyroid Hypothyroid IDDM (insulin dependent diabetes mellitus) IDDM (insulin dependent diabetes mellitus) Irritable bowel Osteoporosis Reactive airways dysfunction syndrome Seropositive rheumatoid arthritis T2DM (type 2 diabetes mellitus) Thyroid nodule Vitamin D deficiency Surgical History H/O: hysterectomy History of bunionectomy of both great toes History of colonoscopy History of tubal ligation Family History Family History Mother Diabetes HTN (hypertension) Breast cancer Uterus cancer Malignant tumor of head Father Diabetes HTN (hypertension) CVD (cardiovascular disease) Heart problem Maternal Aunt Breast cancer Brother Myocardial infarction S/P CABG x 4 Family/Other FH: mental illness Social History Social History Household Members: Other Alcohol intake: current Alcohol intake frequency: does not drink Smoking Status: Current every day smoker Tobacco Type: Cigarette Cigarettes Per Day: 1 Smoked in Last 30 Days: No Use of substances other than those prescribed or required for medical reasons: No Advance Directives: No Advance Directives Information Provided: No Current occupational status: disabled Physical Exam Vital Signs: Vital Signs: Last Vital Signs Temp 98.6 F 12/13/20 14:08 Pulse 92 12/13/20 14:08 Resp 16 12/13/20 14:08 BP 127/64 12/13/20 14:08 Pulse Ox 96 12/13/20 14:08 Body Mass Index 25.0 Const: General: cooperative, healthy appearing, comfortable, no acute distress, well developed, alert, awake and Physically active Orientation/consciousness: patient oriented x3 HENMT: Head: Yes normal to inspection and Yes No palpable skull fracture present Eyes: General: appearance normal, both eyes and all related structures Neck: Neck: Yes normal visual inspection, Yes full ROM, Yes no lymphadenopathy, Yes no meningeal signs, Yes trachea midline, Yes supple and No tender Chest: Chest palpation & inspection: normal inspection of the chest and normal palpation of entire chest wall Resp: Effort & Inspection: normal respiratory effort and able to speak in complete sentences Auscultation: clear to auscultation bilaterally Cardio: Jugular venous distension: no JVD Heart sounds: S1 normal heart sound present and S2 normal heart sound present GI: Inspection: Yes normal to inspection and No abdominal wall ecchymosis Palpation (GI): Soft to palpation, not firm, nontender, no guarding and not rigid : General: No CVA tenderness and Yes no CVA tenderness Back/Spine/Pelvis: Back: no CVA tenderness, No CVA tenderness and back tenderness (Positive for lumbar spine tenderness on palpation) Skin: General skin exam: no rashes or lesions noted and elasticity normal Neuro: General: patient oriented x3, gait normal, no meningeal signs and CN's II-XI intact bilaterally Cranial nerves: Yes CN's II-XII intact bilaterally Extrem: Other: Left lower extremity: negative for swelling/redness of thigh, knee, leg, calf,or foot. positive for slight swelling of left lateral malleolar malleus only, with tenderness ( negative for any erythema). Vascular, motor, and neuro exam is intact. negative for any calf or thight tenderness. Psych: Appearance: grossly normal, well kempt and not disheveled Course Course Course Narrative: Patient will have imaging to rule out any ankle/foot/back fracture. Patient had urinalysis sent to make sure there is no UTI. Not suspecting DVT. ultrasound of lower extemity not inidcated. Reevaluation(s) Reevaluation #1: UA negative for infection or blood. Not suspecting kidney stones. Lumbar x-ray positive for degenerative disc disease. X-ray of the foot and ankle negative for any fractures or dislocation. Not suspecting DVT of lower extremity. Time: 15:55 MDM - Back Pain/Injury MDM Narrative Medical decision making narrative: DJD Lab Data Labs: Lab Results 12/13/20 Range/Units 14:30 Urine Color YELLOW Urine Appearance CLEAR Urine pH 7.5 (5.0-8.0) Ur Specific [place] 1.015 (1.005-1.025) Urine Protein NEG (NEG-TRACE) MG/DL Urine Glucose (UA) NEG (NEG) MG/DL Urine Ketones NEG (NEG) MG/DL Urine Blood NEG (NEG) Urine Nitrite NEG (NEG) Ur Leukocyte Esterase NEG (NEG) Discharge Plan Discharge Clinical Impression: Degenerative disc disease at L5-S1 level Patient Disposition: Home, Self-Care Instructions: Degenerative Disc Disease (ED) Additional Instructions: Return to the ED for worsening back pain, urinary/bowel incontinence, abdominal pain, flank pain, fever, chills, weakness/paralysis of lower extremities, redness/swelling of lower extremities, calf pain, or any other concerning symptoms. Prescriptions: New tramadol 50 mg tablet 50 mg PO TID PRN (Reason: pain) Qty: 9 RF: 0 No Action linagliptin [Tradjenta] 5 mg tablet 5 mg PO DAILY Qty: 30 RF: 11 sulfamethoxazole-trimethoprim [Bactrim DS] 800-160 mg tablet 1 tab PO BID Qty: 14 RF: 0 diclofenac sodium [Voltaren] 1 % gel 2 g topical BID Qty: 100 RF: 3 montelukast 10 mg tablet 10 mg PO BEDTIME Qty: 90 RF: 1 insulin aspart U-100 [Novolog Flexpen U-100 Insulin] 100 unit/mL (3 mL) insulin pen 5 unit subcut TID 30 Days Qty: 4.5 RF: 11 prednisone 2.5 mg tablet 2.5 mg PO QAM Qty: 30 RF: 3 albuterol sulfate [Ventolin HFA] 90 mcg/actuation HFA aerosol inhaler 2 puff inhalation Q4H PRN (Reason: shortness of breath or wheezing) Qty: 8.5 RF: 2 leflunomide 10 mg tablet 10 mg PO DAILY Qty: 90 RF: 0 tizanidine 2 mg tablet 2 mg PO BEDTIME PRN (Reason: muscle spasticity) Qty: 30 RF: 4 omeprazole 40 mg BID RF: 0 Hold Instructions: Resume on 08/28/20. ondansetron HCl [Zofran] 4 mg Tablet 4 mg PO Q6H RF: 0 oxycodone-acetaminophen [Percocet] 5-325 mg tablet 1 tab PO TID PRN (Reason: pain) 30 Days Qty: 90 RF: 0 albuterol sulfate 0.63 mg/3 mL solution for nebulization 0.63 mg inhalation Q4H RF: 0 lithium carbonate 450 mg tablet extended release 450 mg PO BEDTIME RF: 0 letrozole 2.5 mg tablet 2.5 mg PO DAILY RF: 0 duloxetine [Cymbalta] 20 mg capsule,delayed release(DR/EC) 20 mg PO BID RF: 0 Tresiba FlexTouch U-100 100 unit/mL (3 mL) insulin pen 35 unit subcut DAILY RF: 0 trazodone 50 mg tablet 100 mg PO BEDTIME PRNRF: 0 prednisone 10 mg tablets,dose pack 10 mg PO DAILY RF: 0 (DME) pen needle, diabetic 31 gauge x 5/16 needle See Rx Instructions ea .ROUTE DAILY Qty: 100 RF: 11 atorvastatin 40 mg tablet 40 mg PO DAILY RF: 0 losartan 25 mg tablet 25 mg PO DAILY RF: 0 sulfasalazine 500 mg tablet 1 g PO BID RF: 0 cholecalciferol (vitamin D3) 25 mcg (1,000 unit) capsule 25 mcg PO DAILY 30 Days Qty: 30 RF: 11 sennosides-docusate sodium [Senna with Docusate Sodium] 8.6-50 mg tablet 1 tab-cap PO BEDTIME PRN (Reason: constipation) Qty: 60 RF: 0 Refresh P.M. 57.3-42.5 % ointment ophthalmic (eye) BEDTIME PRNRF: 0 Advair HFA 230-21 mcg/actuation HFA aerosol inhaler 2 puff PO BID RF: 0 meclizine 25 mg tablet 25 mg PO DAILY PRNRF: 0 ondansetron 8 mg tablet,disintegrating 8 mg PO DAILY PRNRF: 0 (DME) lancets 28 gauge misc See Rx Instructions ea Not Applicable DAILY Qty: 100 RF: 0 (DME) blood-glucose meter Kit See Rx Instructions ea .ROUTE DIRECTED Qty: 1 RF: 0 pregabalin 75 mg capsule PO RF: 0 pregabalin 150 mg capsule 150 mg PO BEDTIME RF: 0 (DME) FreeStyle Lite Strips Strip See Rx Instructions ea Not Applicable DAILY Qty: 10 RF: 0 cyclosporine 0.05 % dropperette 1 drp ophthalmic (eye) BID PRNRF: 0 Referrals: Adela Gipson MD [Primary Care Provider] - 2 days (Back pain) Interventions: ED Discharge Assessment Last Done: 12/13/20 16:26 Discharge Date/Time: 12/13/20 16:26 Print Language: Upper Sorbian
== END 2020-12-13 16:26 | disposition home or self-care (01) ==
PROVIDERS: Physician Assistant; Emergency Provider Emergency Medicine; PCP Internal Medicine
DX: M51.37 Other intervertebral disc degeneration, lumbosacral region (principal); M25.472 Effusion, left ankle; M25.572 Pain in left ankle and joints of left foot; E11.9 Type 2 diabetes mellitus without complications; I10 Essential (primary) hypertension; Z79.4 Long term (current) use of insulin; Z85.3 Personal history of malignant neoplasm of breast; F17.210 Nicotine dependence, cigarettes, uncomplicated
CPT/HCPCS: 72100; 73610; 73620; 76536; 81003; 96372; 99283; 99284; J1885

== ENCOUNTER → 2020-12-16 10:46 | Outpatient (BNVA) | payer MEDICARE, MEDICAID, SELFPAY | PROVIDERS: PCP Internal Medicine; Referring Provider Internal Medicine; Visit Provider Student in an Organized Health Care Education/Training Program | DX: M05.9 Rheumatoid arthritis with rheumatoid factor, unspecified (principal); M79.7 Fibromyalgia | CPT/HCPCS: 99212 ==

== ENCOUNTER → 2020-12-28 11:05 | Outpatient (BNVA) | payer MEDICARE, MEDICAID, SELFPAY | PROVIDERS: PCP Internal Medicine; Visit Provider Internal Medicine | DX: J45.41 Moderate persistent asthma with (acute) exacerbation (principal); J98.4 Other disorders of lung; R05 Cough | CPT/HCPCS: 99212 ==

== ENCOUNTER 2020-12-30 12:35 | Outpatient (REF) | payer MEDICARE, MEDICAID, SELFPAY ==
[2020-12-30 13:28] LABS: MANUAL DIFF FLAG NO
[2020-12-30 13:31] LABS: Basophils Percent Auto 0.3 % (0-2); Eosinophils Percent Auto 0.1 % (0-4); Hematocrit 36.8 % (37-47); Hemoglobin 11.2 g/dl (12.0-16.0); Imm Gran Abs Auto 0.23 X10*3/uL (0.00-0.03); Imm Gran Pct Auto 1.9 % (0.0-0.4); Lymphocytes Percent Auto 8.2 % (20-40); Mean Corpuscular HGB Conc 30.4 g/dl (31.0-35.0); Mean Corpuscular Hemoglobin 27.9 pg (27.0-33.0); Mean Corpuscular Volume 91.8 fL (80-98); Mean Platelet Volume 10.4 fL (9.4-12.3); Monocytes Absolute Auto 0.3 X10*3/uL (0.1-1.2); Monocytes Percent Auto 2.3 % (2-11); Neutrophils Absolute Auto 10.4 X10*3/uL (2.0-8.3); Neutrophils Percent Auto 87.2 % (45-73); Platelet Count 507 X10*3/uL (160-400); Red Blood Count 4.01 X10*6/uL (4.20-5.50); Red Cell Distribution Width 13.5 % (11.0-16.0); White Blood Count 11.9 X10*3/uL (4.8-10.8)
[2020-12-30 14:22] LABS: Erythrocyte Sedimentation Rate 57 MM/HR (0-20)
[2020-12-30 14:26] LABS: Alanine Aminotransferase 16 U/L (0-31); Albumin Level 3.8 g/dL (3.5-5.0); Alkaline Phosphatase 81 U/L (39-117); Anion Gap 14 (12-20); Aspartate Amino Transferase 18 U/L (5-31); Bilirubin Total 0.3 mg/dL (0.0-1.0); Blood Urea Nitrogen 9 mg/dL (9-16); C Reactive Protein 2.09 mg/dL (< or = 0.50); Calcium 9.6 mg/dL (8.4-10.2); Carbon Dioxide 28 mmol/L (22-29); Chloride 107 mmol/L (96-108); Estimated Glomerular Filt Rate > 60; Glucose Random 141 mg/dL (60-115); Potassium 5.1 mmol/L (3.3-5.1); Sodium 144 mmol/L (135-145); Total Protein 7.1 g/dL (6.5-8.0)
[2021-01-02 07:53] LABS: HBS Num1 1.22 mIU/mL (0-7.99); Hepatitis B Core Antibody Nonreactive (Nonreactive); ~HepC Num1 0.12 S/CO (0.00-0.79); ~Hepatitis B Surface Antibody NONREACTIVE (Nonreactive); ~Hepatitis C Antibody Nonreactive (Nonreactive)
[2021-01-02 08:26] LABS: Hepatitis B Surface Antigen Negative (Negative)
[2021-01-02 14:01] LABS: TS Negative Control Passed; TS Panel A 0; TS Panel B 0; TS Positive Control Passed; TSpotTB Negative (SeeBelow)
[2021-01-04 08:24] LABS: Hepatitis A Antibody IgM 1.46 Index (0-0.79)
[2021-01-04 09:45] LABS: HBsAGNum1 0.21 S/CO (0.00-0.99)
[2021-01-04 10:57] LABS: ~Hepatitis A Antibody IgM Reactive (Nonreactive)
== END 2020-12-30 12:36 | disposition home or self-care (01) ==
LOC: HO.LAB 12:35
PROVIDERS: PCP Internal Medicine; Visit Provider Student in an Organized Health Care Education/Training Program
DX: E11.65 Type 2 diabetes mellitus with hyperglycemia (principal); Z79.4 Long term (current) use of insulin; M05.9 Rheumatoid arthritis with rheumatoid factor, unspecified
CPT/HCPCS: 36415; 80053; 85025; 85652; 86140; 86481; 86704; 86706; 86709; 86803; 87340

== ENCOUNTER → 2021-01-06 14:55 | Outpatient (BNVA) | payer MEDICARE, MEDICAID, SELFPAY | PROVIDERS: PCP Internal Medicine; Visit Provider Internal Medicine Gastroenterology | DX: Z76.89 Persons encountering health services in other specified circumstances (principal) | CPT/HCPCS: Q3014 ==

== ENCOUNTER 2021-01-09 10:35 | Outpatient (REF) | payer MEDICARE, MEDICAID, SELFPAY ==
[2021-01-09 11:29] LABS: MANUAL DIFF FLAG NO
[2021-01-09 11:33] LABS: Basophils Percent Auto 0.3 % (0-2); Eosinophils Percent Auto 0.3 % (0-4); Hematocrit 41.2 % (37-47); Hemoglobin 12.8 g/dl (12.0-16.0); Imm Gran Abs Auto 0.08 X10*3/uL (0.00-0.03); Imm Gran Pct Auto 0.7 % (0.0-0.4); Lymphocytes Absolute Auto 1.3 X10*3/uL (1.2-4.9); Lymphocytes Percent Auto 11.2 % (20-40); Mean Corpuscular HGB Conc 31.1 g/dl (31.0-35.0); Mean Corpuscular Hemoglobin 28.8 pg (27.0-33.0); Mean Corpuscular Volume 92.6 fL (80-98); Mean Platelet Volume 11.2 fL (9.4-12.3); Monocytes Absolute Auto 0.5 X10*3/uL (0.1-1.2); Monocytes Percent Auto 4.1 % (2-11); Neutrophils Absolute Auto 9.7 X10*3/uL (2.0-8.3); Neutrophils Percent Auto 83.4 % (45-73); Platelet Count 340 X10*3/uL (160-400); Red Blood Count 4.45 X10*6/uL (4.20-5.50); Red Cell Distribution Width 14.8 % (11.0-16.0); White Blood Count 11.6 X10*3/uL (4.8-10.8)
[2021-01-09 11:37] LABS: INTERNATIONAL NORM RATIO 1.1 (0.9-1.1); Prothrombin Time 13.1 SEC (10.8-13.0)
[2021-01-09 12:19] LABS: Alanine Aminotransferase 20 U/L (0-31); Albumin Level 4.2 g/dL (3.5-5.0); Alkaline Phosphatase 73 U/L (39-117); Aspartate Amino Transferase 15 U/L (5-31); Bilirubin Direct < 0.2 mg/dL (0.0-0.5); Bilirubin Total 0.4 mg/dL (0.0-1.0); Total Protein 7.4 g/dL (6.5-8.0)
[2021-01-11 08:19] LABS: Hepatitis A Antibody IgM 1.51 Index (0-0.79)
[2021-01-11 08:36] LABS: Hepatitis A Antibody IgG REACTIVE (Nonreactive); ~Hepatitis A Antibody IgG 5.65 S/CO (0.00-0.99)
[2021-01-11 10:57] LABS: ~Hepatitis A Antibody IgM Reactive (Nonreactive)
== END 2021-01-09 10:36 | disposition home or self-care (01) ==
LOC: HO.LAB 10:35
PROVIDERS: PCP Internal Medicine; Visit Provider Internal Medicine Gastroenterology
DX: B15.9 Hepatitis A without hepatic coma (principal)
CPT/HCPCS: 36415; 80076; 85025; 85610; 86708; 86709

== ENCOUNTER → 2021-01-24 14:18 | Outpatient (BNV) | payer MEDICARE, OTHER, MEDICAID, SELFPAY | PROVIDERS: PCP Internal Medicine; Visit Provider Internal Medicine Medical Oncology | DX: C50.912 Malignant neoplasm of unspecified site of left female breast (principal) | CPT/HCPCS: 99212; 99213; 99214 ==

== ENCOUNTER 2021-01-25 12:28 | Outpatient (REF) | payer MEDICARE, MEDICAID, SELFPAY ==
[2021-01-25 13:06] LABS: MANUAL DIFF FLAG NO
[2021-01-25 13:16] LABS: Basophils Absolute Auto 0.1 X10*3/uL (0.0-0.2); Basophils Percent Auto 0.4 % (0-2); Eosinophils Absolute Auto 0.1 X10*3/uL (0.0-0.4); Eosinophils Percent Auto 0.8 % (0-4); Hematocrit 41.5 % (37-47); Hemoglobin 13.1 g/dl (12.0-16.0); Imm Gran Abs Auto 0.07 X10*3/uL (0.00-0.03); Imm Gran Pct Auto 0.6 % (0.0-0.4); Lymphocytes Absolute Auto 1.2 X10*3/uL (1.2-4.9); Lymphocytes Percent Auto 10.3 % (20-40); Mean Corpuscular HGB Conc 31.6 g/dl (31.0-35.0); Mean Platelet Volume 11.2 fL (9.4-12.3); Monocytes Absolute Auto 0.5 X10*3/uL (0.1-1.2); Monocytes Percent Auto 4.6 % (2-11); Neutrophils Absolute Auto 9.5 X10*3/uL (2.0-8.3); Neutrophils Percent Auto 83.3 % (45-73); Platelet Count 255 X10*3/uL (160-400); Red Blood Count 4.51 X10*6/uL (4.20-5.50); Red Cell Distribution Width 14.8 % (11.0-16.0); White Blood Count 11.4 X10*3/uL (4.8-10.8)
--- NOTE | 2021-01-25 13:55 | PFT_ITS ---
FLOWS: FEV1 of 51% of predicted at 1.05 L. FVC 58% of predicted at 1.55 L. FEV1 to FVC ratio of 0.68. Positive bronchodilator response. LUNG VOLUMES: Slow vital capacity 59% of predicted at 1.48 L. Expiratory reserve volume 6% of predicted at 0.04 L. The patient was unable to perform a functional residual capacity maneuver secondary to cough and dyspnea. Diffusion capacity is normal. IMPRESSION: Moderate to severe obstructive ventilatory defect with positive bronchodilator response. Decreased expiratory reserve volume suggests extrathoracic restriction likely secondary to obesity. The patient was not able to perform functional residual capacity maneuver secondary to cough and dyspnea. Arnav Zaragoza MD AP/MODL / [id number]
[2021-01-25 13:59] LABS: Alanine Aminotransferase 21 U/L (0-31); Alkaline Phosphatase 78 U/L (39-117); Anion Gap 9 (12-20); Aspartate Amino Transferase 14 U/L (5-31); Bilirubin Total 0.3 mg/dL (0.0-1.0); Blood Urea Nitrogen 8 mg/dL (9-16); Calcium 9.5 mg/dL (8.4-10.2); Carbon Dioxide 28 mmol/L (22-29); Chloride 105 mmol/L (96-108); Estimated Glomerular Filt Rate > 60; Glucose Random 177 mg/dL (60-115); Potassium 4.3 mmol/L (3.3-5.1); Sodium 138 mmol/L (135-145)
[2021-01-25 14:06] LABS: Vitamin D 25-OH Total 27.8 ng/mL (>30)
[2021-01-25 14:15] LABS: Erythrocyte Sedimentation Rate 10 MM/HR (0-20)
[2021-01-25 14:31] LABS: Creatinine Urine 27.77 mg/dL
[2021-01-26 12:01] LABS: CA 27.29 27 U/mL (<38)
== END 2021-01-25 12:29 | disposition home or self-care (01) ==
LOC: HO.RESP 12:28
PROVIDERS: Internal Medicine Medical Oncology; Student in an Organized Health Care Education/Training Program; Absent Provider Internal Medicine; PCP Internal Medicine; Visit Provider Internal Medicine
DX: J44.9 Chronic obstructive pulmonary disease, unspecified (principal); J45.909 Unspecified asthma, uncomplicated; J98.4 Other disorders of lung; R05 Cough; C50.919 Malignant neoplasm of unspecified site of unspecified female breast; E11.65 Type 2 diabetes mellitus with hyperglycemia; Z79.4 Long term (current) use of insulin; M05.9 Rheumatoid arthritis with rheumatoid factor, unspecified
CPT/HCPCS: 36415; 80053; 82306; 85025; 85652; 86300; 94060; 94729

== ENCOUNTER → 2021-01-26 11:37 | Outpatient (BNVA) | payer MEDICARE, MEDICAID, SELFPAY | PROVIDERS: PCP Internal Medicine; Visit Provider Internal Medicine | DX: J44.9 Chronic obstructive pulmonary disease, unspecified (principal); J45.909 Unspecified asthma, uncomplicated; F17.200 Nicotine dependence, unspecified, uncomplicated; Z71.6 Tobacco abuse counseling; Z79.51 Long term (current) use of inhaled steroids | CPT/HCPCS: 99212 ==

== ENCOUNTER → 2021-01-30 07:58 | Outpatient (BNVA) | payer MEDICARE, MEDICAID, SELFPAY | PROVIDERS: PCP Internal Medicine; Visit Provider Internal Medicine Gastroenterology | DX: K52.9 Noninfective gastroenteritis and colitis, unspecified (principal); R63.5 Abnormal weight gain; B15.9 Hepatitis A without hepatic coma; K58.1 Irritable bowel syndrome with constipation; F17.210 Nicotine dependence, cigarettes, uncomplicated; Z87.19 Personal history of other diseases of the digestive system; Z79.899 Other long term (current) drug therapy; Z71.6 Tobacco abuse counseling; Z12.11 Encounter for screening for malignant neoplasm of colon; Z79.4 Long term (current) use of insulin | CPT/HCPCS: Q3014 ==

== ENCOUNTER → 2021-02-07 14:26 | Outpatient (BNVA) | payer MEDICARE, MEDICAID, SELFPAY | PROVIDERS: PCP Internal Medicine; Referring Provider Internal Medicine; Visit Provider Surgery | DX: C50.912 Malignant neoplasm of unspecified site of left female breast (principal) | CPT/HCPCS: 99212 ==

== ENCOUNTER 2021-02-09 08:31 | Outpatient (REF) | payer MEDICARE, MEDICAID, SELFPAY ==
--- NOTE | ~2021-02-09 | US_ITS ---
EXAMINATION: US ABDOMEN COMPLETE CLINICAL INFORMATION: Hepatitis without hepatic coma. COMPARISON: CT abdomen and pelvis 08/21/2020. Ultrasound abdomen complete 01/28/2020. Ultrasound abdomen limited and x-ray abdomen 05/07/2016. TECHNIQUE: Real-time imaging of the abdominal viscera. FINDINGS: PANCREAS: Partially visualized head and body of the pancreas are unremarkable. The tail and part of the body of the pancreas is not visualized due to overlying gas. ABDOMINAL AORTA: The proximal, mid, and distal segments are normal in caliber. INFERIOR VENA CAVA: Visualized portions are normal. LIVER: The liver is normal in size. The liver contour is normal. The liver is diffusely echogenic. No focal hepatic lesion. There is no intrahepatic biliary duct dilatation seen. GALLBLADDER: Normal. The gallbladder is physiologically distended without evidence of stones, sludge, polyps, wall thickening or pericholecystic fluid. COMMON BILE DUCT: Normal in caliber measuring 0.6 cm in diameter. RIGHT KIDNEY: No hydronephrosis or focal parenchymal lesions. The kidney measures 11.3 cm in maximum dimension. There is a small echogenic stone lower pole measures 0.4 cm. LEFT KIDNEY: Normal. No hydronephrosis. No renal calculi or focal parenchymal lesions. The kidney measures 10.8 cm in maximum dimension. SPLEEN: Normal. The spleen measures 9.1 cm in maximum dimension. FREE FLUID: None. US/US abdomen complete IMPRESSION: Small echogenic nonobstructive stone lower pole measuring 0.4 cm. Mild hepatic steatosis without focal lesion. Rest of the abdominal ultrasound is unremarkable.
== END 2021-02-09 08:32 | disposition home or self-care (01) ==
LOC: HO.US 08:31
PROVIDERS: Visit Provider Internal Medicine Medical Oncology
DX: B15.9 Hepatitis A without hepatic coma (principal)
CPT/HCPCS: 76700

== ENCOUNTER → 2021-02-23 14:25 | Outpatient (BNVA) | payer MEDICARE, MEDICAID, SELFPAY | PROVIDERS: PCP Internal Medicine; Visit Provider Internal Medicine Gastroenterology | DX: K59.09 Other constipation (principal); Z12.11 Encounter for screening for malignant neoplasm of colon; B15.9 Hepatitis A without hepatic coma; K58.0 Irritable bowel syndrome with diarrhea; Z87.19 Personal history of other diseases of the digestive system; Z86.19 Personal history of other infectious and parasitic diseases | CPT/HCPCS: 99212 ==

== ENCOUNTER 2021-02-24 13:02 | Outpatient (REF) | payer MEDICARE, MEDICAID, SELFPAY ==
[2021-02-24 14:03] LABS: MANUAL DIFF FLAG NO
[2021-02-24 14:11] LABS: Basophils Percent Auto 0.3 % (0-2); Eosinophils Percent Auto 0.1 % (0-4); Hematocrit 41.5 % (37-47); Hemoglobin 13.2 g/dl (12.0-16.0); Imm Gran Abs Auto 0.09 X10*3/uL (0.00-0.03); Imm Gran Pct Auto 0.7 % (0.0-0.4); Lymphocytes Absolute Auto 1.1 X10*3/uL (1.2-4.9); Lymphocytes Percent Auto 7.9 % (20-40); Mean Corpuscular HGB Conc 31.8 g/dl (31.0-35.0); Mean Corpuscular Hemoglobin 29.3 pg (27.0-33.0); Mean Corpuscular Volume 92.2 fL (80-98); Mean Platelet Volume 10.9 fL (9.4-12.3); Monocytes Absolute Auto 0.3 X10*3/uL (0.1-1.2); Neutrophils Absolute Auto 11.8 X10*3/uL (2.0-8.3); Platelet Count 322 X10*3/uL (160-400); Red Cell Distribution Width 14.2 % (11.0-16.0); White Blood Count 13.2 X10*3/uL (4.8-10.8)
[2021-02-24 14:40] LABS: Alanine Aminotransferase 31 U/L (0-31); Albumin Level 4.3 g/dL (3.5-5.0); Alkaline Phosphatase 80 U/L (39-117); Anion Gap 11 (12-20); Aspartate Amino Transferase 18 U/L (5-31); Bilirubin Total 0.2 mg/dL (0.0-1.0); Blood Urea Nitrogen 4 mg/dL (9-16); Carbon Dioxide 27 mmol/L (22-29); Chloride 107 mmol/L (96-108); Estimated Glomerular Filt Rate > 60; Glucose Random 129 mg/dL (60-115); Potassium 4.4 mmol/L (3.3-5.1); Sodium 141 mmol/L (135-145); Total Protein 7.3 g/dL (6.5-8.0)
[2021-02-24 15:02] LABS: Folate 12.8 ng/mL (> or = 4.0); Vitamin B12 372 pg/mL (200-900)
[2021-02-24 15:04] LABS: Leukocytes Stool Qualitative NEGATIVE (NEGATIVE)
[2021-03-01 08:55] LABS: Hepatitis A Antibody IgG REACTIVE (Nonreactive); ~Hepatitis A Antibody IgG 5.98 S/CO (0.00-0.99)
[2021-03-01 10:34] LABS: Hepatitis A Antibody IgM 1.11 Index (0-0.79)
[2021-03-01 10:41] LABS: ~Hepatitis A Antibody IgM GRAYZONE (Nonreactive)
== END 2021-02-24 13:03 | disposition home or self-care (01) ==
LOC: HO.LAB 13:02
PROVIDERS: Absent Provider Student in an Organized Health Care Education/Training Program; PCP Internal Medicine; Visit Provider Internal Medicine Gastroenterology
DX: M05.9 Rheumatoid arthritis with rheumatoid factor, unspecified (principal); R19.4 Change in bowel habit; R14.0 Abdominal distension (gaseous); B15.9 Hepatitis A without hepatic coma
CPT/HCPCS: 36415; 80053; 82607; 82746; 85025; 86140; 86708; 86709; 87324; 87449; 89055

== ENCOUNTER 2021-03-09 12:33 | Inpatient (IN) | payer MEDICARE, MEDICAID, SELFPAY ==
[2021-03-09] VITALS (10 sets, daily range): BP systolic 108–165; BP diastolic 68–87; PULSE 99–121; RESP 18–24; TEMP 36.3–36.8; O2SAT 95–98; BMI 27.1
--- NOTE | 2021-03-09 | ECG_ITS ---
Test Reason : DSYNPEA Blood Pressure : / mmHG Vent. Rate : 101 BPM Atrial Rate : 101 BPM P-R Int : 132 ms QRS Dur : 082 ms QT Int : 338 ms P-R-T Axes : 071 071 064 degrees QTc Int : 438 ms Sinus tachycardia Otherwise normal ECG When compared with ECG of 12-JUL-2020 15:53, No significant change was found Referred By: Generic ED Physician Electronically Signed By:Joseph Salmon
--- NOTE | ~2021-03-09 | XR_ITS ---
EXAMINATION: XR CHEST CLINICAL INFORMATION: Dyspnea COMPARISON: CT scan of November 25, 2020 and chest x-ray November 01, 2020 TECHNIQUE: 2 views of the chest were obtained. FINDINGS: There is no evidence of acute parenchymal disease, pneumothorax, or pleural effusion. Heart normal size. No evidence of pulmonary edema. There is a large left pericardial fat pad present. XR/XR chest 2V IMPRESSION: No acute disease.
--- NOTE | ~2021-03-09 | CT_ITS ---
EXAMINATION: CT ABDOMEN AND PELVIS WITHOUT CONTRAST CLINICAL INFORMATION: Diffuse abdominal pain with history of colitis COMPARISON: CT abdomen pelvis 08/21/2020, ultrasound abdomen 02/09/2021 and many other studies dating back to 07/11/2015 and further. TECHNIQUE: Multidetector volumetric imaging was performed from the superior aspect of the liver through the pubic symphysis. Sagittal and coronal reformatted images were obtained on the technologist's workstation. This CT examination was performed using dose optimization techniques as appropriate, variously including the following: *Automated exposure control *Adjustment of mA and/or kV according to patient size (this includes techniques or standardized protocols for targeted exams where dose is matched to indication/reason for exam; i.e. extremities or head) *Use of iterative reconstruction technique DLP: 441 mGy-cm FINDINGS: LUNG BASES: The visualized lung bases are unremarkable. Mild scarring is present in the right middle lobe lingula and both lower lobes. LIVER, GALLBLADDER, AND BILIARY TREE: The liver is normal in size and shape but demonstrates decreased attenuation consistent with hepatic steatosis.. No focal hepatic lesion or biliary ductal dilatation is present. The gallbladder is completely contracted but otherwise unremarkable with no evidence of radiopaque gallstones, gallbladder wall thickening, or obvious pericholecystic inflammatory changes. PANCREAS: Unremarkable. SPLEEN: Unremarkable. A small splenule is seen. ADRENAL GLANDS: A small left adrenal nodule present measuring 1.0 x 0.6 x 1.7 cm. Hounsfield unit attenuation is not fluid or fat and therefore this is indeterminate. Is unchanged in size and appearance when compared to the 07/11/2015 study study. The right adrenal gland is unremarkable. KIDNEYS AND URETERS: The kidneys are normal in size, shape, and attenuation. No hydronephrosis, hydroureter, or calculi seen. No perinephric stranding. BLADDER: Unremarkable. GASTROINTESTINAL TRACT: The small and large bowel are unremarkable. There is no evidence seen to suggest colitis. The appendix is unremarkable. ABDOMINAL WALL: No significant hernia is appreciated. There is a tiny periumbilical hernia seen containing only fat LYMPH NODES: No retroperitoneal lymphadenopathy seen. VASCULAR: Calcific atherosclerotic changes present in the aorta and iliac vessels PELVIC VISCERA: Surgically removed. OSSEOUS STRUCTURES: Unremarkable. The SI joints are normal. CT/CT abdomen pelvis wo con IMPRESSION: A cause for the patient's diffuse abdominal pain has not been found. Incidental note made of: 1. Hepatic steatosis. 2. Small stable adrenal nodule, unchanged over many years 3. Status post hysterectomy.
--- NOTE | 2021-03-09 12:54 | ED.SOB ---
HPI - SOB/Dyspnea General Chief Complaint: Dyspnea Stated Complaint: SOB Time Seen by Provider: 03/09/21 12:52 Source: patient Mode of arrival: ambulatory Limitations: no limitations History of Present Illness MD elicited complaint: shortness of breath, cough and asthma attack Pertinent past history: asthma Onset (ago): week(s) (1) Context: other (started after switching from lithium to depakote about 2 weeks ago stopped the depakote yesterday ) Timing: constant Severity: similar to previous episodes Exacerbating factors: recent new medication Relieving factors: rest and bronchodilators Known history of: asthma Associated symptoms: wheezing Treatment prior to arrival: bronchodilator and other (prednisone 10mg daily ) Related Data Home Medications Medication Instructions Recorded Confirmed albuterol sulfate 0.63 mg/3 mL 0.63 mg INHALATION Q4H 08/24/20 02/23/21 solution for nebulization duloxetine 20 mg capsule,delayed 20 mg PO BID 08/24/20 02/23/21 release letrozole 2.5 mg tablet 2.5 mg PO DAILY 08/24/20 02/23/21 lithium carbonate 450 mg 450 mg PO BEDTIME 08/24/20 02/23/21 tablet,extended release atorvastatin 40 mg tablet 40 mg PO DAILY 09/14/20 02/23/21 blood-glucose meter #1 ea 09/26/20 02/23/21 lancets 28 gauge #100 ea 09/26/20 02/23/21 ondansetron 8 mg disintegrating 8 mg PO DAILY PRN 09/26/20 02/23/21 tablet white petrolatum-mineral oil 57.3 OPHTHALMIC (EYE) BEDTIME PRN 09/26/20 02/23/21 %-42.5 % eye ointment cyclosporine 0.05 % eye drops in a 1 drp OPHTHALMIC (EYE) BID PRN 11/23/20 02/23/21 dropperette trazodone 50 mg tablet 100 mg PO BEDTIME PRN tab 11/23/20 02/23/21 diclofenac sodium 1 % topical gel 2 g TOPICAL BID PRN g 12/28/20 02/23/21 hydroxychloroquine 200 mg tablet 200 mg PO DAILY 01/26/21 02/23/21 Previous Rx's Medication Instructions Recorded linagliptin 5 mg tablet 5 mg PO DAILY #30 tab 09/08/20 montelukast 10 mg tablet 10 mg PO BEDTIME #90 tab 11/28/20 sennosides 8.6 mg-docusate sodium 1 tab-cap PO BEDTIME PRN #60 tab 12/01/20 50 mg tablet albuterol sulfate 90 mcg/actuation 2 puff INHALATION Q4H PRN #8.5 g 12/02/20 aerosol inhaler cholecalciferol (vitamin D3) 25 25 mcg PO DAILY 30 Days #30 cap 12/07/20 mcg (1,000 unit) capsule tizanidine 2 mg tablet 2 mg PO BEDTIME PRN #30 tab 12/07/20 pregabalin 150 mg capsule 150 mg PO BEDTIME #30 cap 12/16/20 pregabalin 75 mg capsule 75 mg PO BID #60 cap 12/16/20 meclizine 25 mg tablet 25 mg PO DAILY PRN 30 Days #30 tab 12/22/20 etanercept 50 mg/mL (1 mL) 50 mg SUBCUT QWEEK #4 ml 01/03/21 subcutaneous pen injector oxycodone 5 mg tablet 5 mg PO BID PRN 30 Days #60 tab 01/09/21 ipratropium 0.5 mg-albuterol 3 mg 3 ml INHALATION Q6H PRN #180 ml 01/12/21 (2.5 mg base)/3 mL nebulization soln insulin aspart U-100 100 unit/mL 10 unit SUBCUT .four times a day 01/31/21 (3 mL) subcutaneous pen 30 Days #3 ml insulin degludec 100 unit/mL (3 45 unit SUBCUT DAILY 30 Days #13.5 01/31/21 mL) subcutaneous pen ml fluticasone propionate 230 2 puff PO BID #8 g 02/01/21 mcg-salmeterol 21 mcg/actuation HFA inhaler blood sugar diagnostic #100 ea 02/06/21 pen needle, diabetic 31 gauge x #100 ea 02/06/2104/02 prednisone 10 mg tablet 10 mg PO DAILY #30 tab 02/07/21 psyllium husk 2.6 gram/4.1 gram 1 tbsp PO DAILY 30 Days #480 g 02/23/21 oral powder leflunomide 10 mg tablet 10 mg PO DAILY #90 tab 02/28/21 Allergies Allergy/AdvReac Type Severity Reaction Status Date / Time dog dander [DOGS] Allergy Intermediate Respiratory Verified 02/23/21 14:28 distress ibuprofen [Ibuprofen] Allergy Unknown STOMACH Verified 02/23/21 14:28 UPSET, abdominal pain, nausea and vomiting prednisone Allergy Unknown hallucinations, Verified 02/23/21 14:28 higher than 20 shellfish derived Allergy Unknown Hives Verified 02/23/21 14:28 metformin AdvReac Unknown diarrhea Verified 02/23/21 14:28 metronidazole [From FLAGYL] AdvReac Unknown DIARRHEA Verified 02/23/21 14:28 Review of Systems Review of Systems: Constitutional : No Fever, No Chills ENT/Mouth : No Hoarseness, No sore throat, No Rhinorrhea Eyes: No Redness, No Discharge, No Vision Changes Cardiovascular : No Chest Pain, positive SOB, positive Dyspnea on Exertion, No Edema Respiratory : positive Cough, No Sputum, positive Wheezing, Gastrointestinal : No Nausea, No Vomiting, No Diarrhea, No abdominal Pain Genitourinary : No Dysuria, No Hematuria Musculoskeletal : No joint pain, No Myalgias Skin : No rash Neuro : No Weakness, No Numbness, No Headache Psych : No anxiety, depression Heme/Lymph: No Bruising, No Bleeding Endocrine : No Polyuria, No Polydipsia All other systems reviewed and are negative PMFSH Past Medical History Attestation statement: The following information was validated with the patient. Medical History Allergic rhinitis Allergic rhinitis Anxiety Asthma Bipolar 1 disorder, depressed Breast cancer Bronchial asthma Colitis Cough Depression Diabetes type 2, uncontrolled Dyslipidemia Fibromyalgia Hyperparathyroidism Hypertension Hypothyroid Hypothyroid IDDM (insulin dependent diabetes mellitus) IDDM (insulin dependent diabetes mellitus) Infiltrating ductal carcinoma of left breast, stage 2 Insomnia Irritable bowel Osteoporosis Reactive airways dysfunction syndrome Restrictive airway disease Seropositive rheumatoid arthritis T2DM (type 2 diabetes mellitus) Thyroid nodule Vitamin D deficiency Surgical History H/O: hysterectomy History of bunionectomy of both great toes History of colonoscopy History of tubal ligation Family History Family History Mother Diabetes HTN (hypertension) Breast cancer Uterus cancer Malignant tumor of head Father Diabetes HTN (hypertension) CVD (cardiovascular disease) Heart problem Maternal Aunt Breast cancer Brother Myocardial infarction S/P CABG x 4 Family/Other FH: mental illness Social History Social History Household Members: Family Alcohol intake: never Smoking Status: Never smoker Tobacco Type: Cigarette Use of substances other than those prescribed or required for medical reasons: No Advance Directives: Yes Advance Directives on File: Yes Advance Directives Date on File: 03/09/21 Current occupational status: disabled Physical Exam Vital Signs: Vital Signs: Last Vital Signs Temp 98.2 F 03/09/21 15:21 Pulse 103 H 03/09/21 15:21 Resp 19 03/09/21 15:21 BP 108/68 03/09/21 15:21 Pulse Ox 97 03/09/21 15:21 Body Mass Index 27.1 Appearance: Alert. Oriented X3. Anxious Mild acute distress. Eyes: Pupils equal, round and reactive to light. ENT: Pharynx normal. Neck: Normal inspection. Neck supple. CVS: tachycardic heart rate and rhythm. Pulses normal. Respiratory: Mild respiratory distress tachypnea and retractions. Breath sounds insp and exp wheezes diffusely Abdomen: Soft and nontender. Skin: Skin warm and dry. Normal skin color. Normal skin turgor. Extremities: No lower extremity edema. No calf ttp Neuro: Oriented X 3. No motor deficit. No sensory deficit. Course Course Course Narrative: repeat albuterol 5mg ordered likely admit still tight and wheezing. MDM - SOB/Dyspnea MDM Narrative Medical decision making narrative: 60 yo female with IBS, colitis, bipolar, HPL asthma comes in with 1 week of worsening asthma and wheezing since switching her lithium to depakote she did stop the depakote yesterday, she is uses nebs without relief and is on 10mg prednisone daily, labs, hour long 10mg neb, IV steroids, IV magnesium, CXR and COVID swab dispo per results and improvement with treatments Lab Data Result diagrams: 03/09/21 13:16 03/09/21 13:16 Labs: Lab Results 03/09/21 03/09/21 03/09/21 Range/Units 12:41 13:16 13:16 WBC 10.6 (4.8-10.8) X10*3/uL RBC 4.36 (4.20-5.50) X10*6/uL Hgb 12.7 (12.0-16.0) g/dl Hct 39.4 (37-47) % MCV 90.4 (80-98) fL MCH 29.1 (27.0-33.0) pg MCHC 32.2 (31.0-35.0) g/dl RDW 13.9 (11.0-16.0) % Plt Count 318 (160-400) X10*3/uL MPV 10.5 (9.4-12.3) fL Immature Gran % (Auto) 0.8 H (0.0-0.4) % Neut % (Auto) 67.2 (45-73) % Lymph % (Auto) 25.2 (20-40) % [place] % (Auto) 5.8 (2-11) % Eos % (Auto) 0.8 (0-4) % Baso % (Auto) 0.2 (0-2) % Lymph # (Auto) 2.7 (1.2-4.9) X10*3/uL [place] # (Auto) 0.6 (0.1-1.2) X10*3/uL Eos # (Auto) 0.1 (0.0-0.4) X10*3/uL Baso # (Auto) 0.0 (0.0-0.2) X10*3/uL Abs Immat Gran (auto) 0.09 H (0.00-0.03) X10*3/uL Absolute Neuts (auto) 7.1 (2.0-8.3) X10*3/uL Absolute Nucleated RBC 0.000 (0.0-0.012) X10*3/uL Nucleated RBC % (auto) 0.0 (0.0-0.2) /100WBC Sodium 141 (135-145) mmol/L Potassium 4.0 (3.3-5.1) mmol/L Chloride 108 (96-108) mmol/L Carbon Dioxide 26 (22-29) mmol/L Anion Gap 11 L (12-20) BUN 9 D (9-16) mg/dL Creatinine 0.83 (0.5-1.4) mg/dL Estim Creat Clear Calc 56.1 Estimated GFR > 60 POC Glucose (60-115) mg/dL Random Glucose 143 H (60-115) mg/dL Calcium 9.5 (8.4-10.2) mg/dL Urine Color Urine Appearance Urine pH (5.0-8.0) Ur Specific [place] (1.005-1.025) Urine Protein (NEG-TRACE) MG/DL Urine Glucose (UA) (NEG) MG/DL Urine Ketones (NEG) MG/DL Urine Blood (NEG) Urine Nitrite (NEG) Ur Leukocyte Esterase (NEG) Valproic Acid (50.0-100.0) mcg/mL COVID-19 ([facility]) Negative (Negative) COVID-19 Clin Com See Note 03/09/21 03/09/21 03/09/21 Range/Units 13:16 14:49 14:58 WBC (4.8-10.8) X10*3/uL RBC (4.20-5.50) X10*6/uL Hgb (12.0-16.0) g/dl Hct (37-47) % MCV (80-98) fL MCH (27.0-33.0) pg MCHC (31.0-35.0) g/dl RDW (11.0-16.0) % Plt Count (160-400) X10*3/uL MPV (9.4-12.3) fL Immature Gran % (Auto) (0.0-0.4) % Neut % (Auto) (45-73) % Lymph % (Auto) (20-40) % [place] % (Auto) (2-11) % Eos % (Auto) (0-4) % Baso % (Auto) (0-2) % Lymph # (Auto) (1.2-4.9) X10*3/uL [place] # (Auto) (0.1-1.2) X10*3/uL Eos # (Auto) (0.0-0.4) X10*3/uL Baso # (Auto) (0.0-0.2) X10*3/uL Abs Immat Gran (auto) (0.00-0.03) X10*3/uL Absolute Neuts (auto) (2.0-8.3) X10*3/uL Absolute Nucleated RBC (0.0-0.012) X10*3/uL Nucleated RBC % (auto) (0.0-0.2) /100WBC Sodium (135-145) mmol/L Potassium (3.3-5.1) mmol/L Chloride (96-108) mmol/L Carbon Dioxide (22-29) mmol/L Anion Gap (12-20) BUN (9-16) mg/dL Creatinine (0.5-1.4) mg/dL Estim Creat Clear Calc Estimated GFR POC Glucose 105 (60-115) mg/dL Random Glucose (60-115) mg/dL Calcium (8.4-10.2) mg/dL Urine Color YELLOW Urine Appearance CLEAR Urine pH 7.5 (5.0-8.0) Ur Specific [place] 1.020 (1.005-1.025) Urine Protein NEG (NEG-TRACE) MG/DL Urine Glucose (UA) NEG (NEG) MG/DL Urine Ketones NEG (NEG) MG/DL Urine Blood NEG (NEG) Urine Nitrite NEG (NEG) Ur Leukocyte Esterase NEG (NEG) Valproic Acid 76.5 (50.0-100.0) mcg/mL COVID-19 ([facility]) (Negative) COVID-19 Clin Com ECG Data Attestation: I personally reviewed and interpreted this ECG as follows: ECG interpretation date: 03/09/21 ECG interpretation time: 13:07 Interpretation: Rate: 101 Rhythm: sinus tachycardia [place]: normal Normal P waves. Normal JIMMY. Normal QRS complex. ST T wave : normal no SHAD qTC: normal prior studies: no acute ishemia The study has been interpreted contemporaneously by me. . Critical Care Time Critical Care Time Critical Care Time: Yes Total Critical Care Time: 30 Attestation: repeat albuterol nebs I attest to this time spent taking care of the patient Discharge Plan Discharge Clinical Impression: Asthma Qualifiers: Asthma severity: moderate Asthma persistence: persistent Asthma complication type: with acute exacerbation Qualified Code(s): J45.41 - Moderate persistent asthma with (acute) exacerbation Prescriptions: No Action linagliptin [Tradjenta] 5 mg tablet 5 mg PO DAILY Qty: 30 RF: 11 montelukast 10 mg tablet 10 mg PO BEDTIME Qty: 90 RF: 1 albuterol sulfate [Ventolin HFA] 90 mcg/actuation HFA aerosol inhaler 2 puff inhalation Q4H PRN (Reason: shortness of breath or wheezing) Qty: 8.5 RF: 2 tizanidine 2 mg tablet 2 mg PO BEDTIME PRN (Reason: muscle spasticity) Qty: 30 RF: 4 meclizine 25 mg tablet 25 mg PO DAILY PRN (Reason: dizziness) 30 Days Qty: 30 RF: 2 Enbrel SureClick 50 mg/mL (1 mL) pen injector 50 mg subcut QWEEK Qty: 4 RF: 3 ipratropium-albuterol 0.5 mg-3 mg(2.5 mg base)/3 mL solution for nebulization 3 ml inhalation Q6H PRN (Reason: wheezing) Qty: 180 RF: 2 fluticasone propion-salmeterol 230-21 mcg/actuation HFA aerosol inhaler 2 puff PO BID Qty: 8 RF: 3 (DME) blood sugar diagnostic Strip See Rx Instructions ea Not Applicable DAILY Qty: 100 RF: 11 (DME) pen needle, diabetic 31 gauge x 5/16 needle See Rx Instructions ea .ROUTE DAILY Qty: 100 RF: 11 prednisone 10 mg tablet 10 mg PO DAILY Qty: 30 RF: 2 leflunomide 10 mg tablet 10 mg PO DAILY Qty: 90 RF: 0 albuterol sulfate 0.63 mg/3 mL solution for nebulization 0.63 mg inhalation Q4H RF: 0 lithium carbonate 450 mg tablet extended release 450 mg PO BEDTIME RF: 0 letrozole 2.5 mg tablet 2.5 mg PO DAILY RF: 0 duloxetine [Cymbalta] 20 mg capsule,delayed release(DR/EC) 20 mg PO BID RF: 0 trazodone 50 mg tablet 100 mg PO BEDTIME PRN (Reason: Insomnia) RF: 0 Tresiba FlexTouch U-100 100 unit/mL (3 mL) insulin pen 45 unit subcut DAILY 30 Days Qty: 13.5 RF: 6 insulin aspart U-100 [Novolog Flexpen U-100 Insulin] 100 unit/mL (3 mL) insulin pen 10 unit subcut .four times a day 30 Days Qty: 3 RF: 6 oxycodone 5 mg tablet 5 mg PO BID PRN (Reason: pain) 30 Days Qty: 60 RF: 0 pregabalin 150 mg capsule 150 mg PO BEDTIME Qty: 30 RF: 5 pregabalin 75 mg capsule 75 mg PO BID Qty: 60 RF: 5 psyllium husk 2.6 gram/4.1 gram powder 1 tbsp PO DAILY 30 Days Qty: 480 RF: 0 atorvastatin 40 mg tablet 40 mg PO DAILY RF: 0 cholecalciferol (vitamin D3) 25 mcg (1,000 unit) capsule 25 mcg PO DAILY 30 Days Qty: 30 RF: 11 sennosides-docusate sodium [Senna with Docusate Sodium] 8.6-50 mg tablet 1 tab-cap PO BEDTIME PRN (Reason: constipation) Qty: 60 RF: 0 Refresh P.M. 57.3-42.5 % ointment ophthalmic (eye) BEDTIME PRN (Reason: Dry Eyes) RF: 0 ondansetron 8 mg tablet,disintegrating 8 mg PO DAILY PRN (Reason: Nausea) RF: 0 (DME) lancets 28 gauge misc See Rx Instructions ea Not Applicable DAILY Qty: 100 RF: 0 (DME) blood-glucose meter Kit See Rx Instructions ea .ROUTE DIRECTED Qty: 1 RF: 0 cyclosporine 0.05 % dropperette 1 drp ophthalmic (eye) BID PRN (Reason: Dry Eyes) RF: 0 diclofenac sodium [Voltaren] 1 % gel 2 g topical BID PRN (Reason: Pain) RF: 0 hydroxychloroquine 200 mg tablet 200 mg PO DAILY RF: 0
[2021-03-09 13:00] LABS: COVID-19 Test Negative (Negative); IDNOW Serial# 08D9AD1C
[2021-03-09] MEDS: Albuterol Sulfate (0.083%) 2.5 MG/3 ML VIAL.NEB 10 MG INHALE (13:00)
[2021-03-09 13:25] LABS: MANUAL DIFF FLAG NO
[2021-03-09 13:28] LABS: Basophils Percent Auto 0.2 % (0-2); Eosinophils Absolute Auto 0.1 X10*3/uL (0.0-0.4); Eosinophils Percent Auto 0.8 % (0-4); Hematocrit 39.4 % (37-47); Hemoglobin 12.7 g/dl (12.0-16.0); Imm Gran Abs Auto 0.09 X10*3/uL (0.00-0.03); Imm Gran Pct Auto 0.8 % (0.0-0.4); Lymphocytes Absolute Auto 2.7 X10*3/uL (1.2-4.9); Lymphocytes Percent Auto 25.2 % (20-40); Mean Corpuscular HGB Conc 32.2 g/dl (31.0-35.0); Mean Corpuscular Hemoglobin 29.1 pg (27.0-33.0); Mean Corpuscular Volume 90.4 fL (80-98); Mean Platelet Volume 10.5 fL (9.4-12.3); Monocytes Absolute Auto 0.6 X10*3/uL (0.1-1.2); Monocytes Percent Auto 5.8 % (2-11); Neutrophils Absolute Auto 7.1 X10*3/uL (2.0-8.3); Neutrophils Percent Auto 67.2 % (45-73); Platelet Count 318 X10*3/uL (160-400); Red Blood Count 4.36 X10*6/uL (4.20-5.50); Red Cell Distribution Width 13.9 % (11.0-16.0); White Blood Count 10.6 X10*3/uL (4.8-10.8)
[2021-03-09 13:44] LABS: Anion Gap 11 (12-20); Blood Urea Nitrogen 9 mg/dL (9-16); Calcium 9.5 mg/dL (8.4-10.2); Carbon Dioxide 26 mmol/L (22-29); Chloride 108 mmol/L (96-108); Creatinine Clr Calc Pharmacy 56.1; Estimated Glomerular Filt Rate > 60; Glucose Random 143 mg/dL (60-115); Sodium 141 mmol/L (135-145)
[2021-03-09 14:02] LABS: Valproate 76.5 mcg/mL (50.0-100.0)
[2021-03-09 14:59] LABS: Glucose Urine UA NEG (NEG); Leukocyte Esterase Urine NEG (NEG); Nitrite Urine NEG (NEG); PH 7.5 (5.0-8.0); Urine Blood NEG (NEG); Urine Ketones NEG (NEG); Urine Protein NEG (NEG-TRACE)
[2021-03-09 15:00] LABS: Appearance Urine CLEAR; Color Urine YELLOW
[2021-03-09 15:01] LABS: Glucose, Whole Blood 105 mg/dL (60-115)
--- NOTE | 2021-03-09 15:17 | PC.NURSE ---
lungs - tight and exp wheezing all lobes.
[2021-03-09] MEDS: Magnesium Sulfate/H2O 2 GM/50 ML PIGGYBACK IV (15:18)
[2021-03-09] MEDS: methylPREDNISolone Sod Succ 125 MG/2 ML VIAL IVPUSH (15:18)
--- NOTE | 2021-03-09 15:21 | PC.NURSE ---
report taken from JAQUELINE Murphy, patient moved to room 20, patient a&ox3, pt medicated with meds per order, vss, lungs have in/ex wheezing, will continue to monitor.
[2021-03-09] MEDS: Albuterol Sulfate (0.083%) 2.5 MG/3 ML VIAL.NEB 5 MG INHALE ×2 (17:11→20:16)
[2021-03-09] MEDS: guaiFEN/Codeine SF 200/20/10ML 10 ML LIQUID PO (19:34)
--- NOTE | 2021-03-09 19:34 | PC.NURSE ---
patient a&ox3, gate guard sinus tach low 100s, vss, pt watching tv, lungs in/ex wheezing, pt medicated per order, pt ate dinner in ed, will call RT for updraft to be given, will continue to monitor.
[2021-03-09 21:38] LABS: Glucose, Whole Blood 383 mg/dL (60-115)
[2021-03-09] MEDS: 0.9 % Sodium Chloride 1,000 ML 999 ML IVCONT (21:57)
[2021-03-09] MEDS: Insulin Lispro 100 UNIT/ML 3 ML VIAL 10 UNIT SUBCUT (21:57)
--- NOTE | 2021-03-09 21:58 | PC.NURSE ---
patient medicated per order, pt requesting po medication for headache, she states she has a headache 10/10 from coughing, pt library monitor sinus tach, vitals otherwise stable, lungs in/ex wheezing, will continue to monitor.
--- NOTE | 2021-03-09 22:35 | PC.NURSE ---
called floor to give report, [place] to call us back
--- NOTE | 2021-03-09 22:48 | PC.NURSE ---
report given to floor
[2021-03-09] MEDS: Azithromycin 500 MG in 0.9 % Sodium Chloride 250 ML 125 MG IV (23:40)
[2021-03-09] MEDS: Enoxaparin Sodium 40 MG/0.4 ML SYRINGE SUBCUT (23:40)
[2021-03-09] MEDS: methylPREDNISolone Sod Succ 40 MG/ML VIAL IVPUSH (23:40)
[2021-03-09] MEDS: Acetaminophen 325 MG TABLET 650 MG PO (23:40)
[2021-03-10] VITALS (10 sets, daily range): BP systolic 110–161; BP diastolic 57–84; PULSE 90–101; RESP 18–20; TEMP 36.1–36.6; O2SAT 95–100; BMI 28.5
[2021-03-10 00:03] LABS: Glucose, Whole Blood 302 mg/dL (60-115)
[2021-03-10] MEDS: 0.9 % Sodium Chloride Flush 3 ML SYRINGE IVFLUSH ×4 (00:12→21:59)
--- NOTE | 2021-03-10 04:36 | PM.IMHP ---
History of Present Illness Date of Service: 03/09/21 Chief Complaint: Shortness of breath This is a 52-year-old female with past medical history of diabetes, asthma, COPD, hyperparathyroidism, hypertension, hypothyroidism, IBS, vitamin-D deficiency, recurrent colitis, breast cancer, among others who presents to the hospital with complaints of difficulty breathing, and wheezing. Patient reports that her symptoms started 2 weeks ago, has been having a dry cough chills, nausea, abdominal pain from other coughing, mostly localized to the left upper quadrant abdominal wall, has had soft bowel movements, feels that she has been having black stools every day 4-5 days, she has urinary frequency with no dysuria or urgency, and no lower extremity edema. Denies any chest pain, no palpitations, no headache or change in vision. No numbness tingling or weakness. On arrival to the ED patient's vital significant for temp of 97.9?, heart rate of 116, respiratory rate of 22, and blood pressure 165/87, satting 97% on room air Labs mostly unremarkable, UA negative, chest x-ray shows no acute disease CT abdomen is negative for any colitis or pathology Chest x-ray negative for any pneumonia or fluid overload COVID-19 negative Review of Systems Review of Systems: Yes all other systems are reviewed and are negative [facility] Medical History Allergic rhinitis Allergic rhinitis Anxiety Asthma Bipolar 1 disorder, depressed Breast cancer Bronchial asthma Colitis Cough Depression Diabetes type 2, uncontrolled Dyslipidemia Fibromyalgia Hyperparathyroidism Hypertension Hypothyroid Hypothyroid IDDM (insulin dependent diabetes mellitus) IDDM (insulin dependent diabetes mellitus) Infiltrating ductal carcinoma of left breast, stage 2 Insomnia Irritable bowel Osteoporosis Reactive airways dysfunction syndrome Restrictive airway disease Seropositive rheumatoid arthritis T2DM (type 2 diabetes mellitus) Thyroid nodule Vitamin D deficiency Family History Mother Diabetes HTN (hypertension) Breast cancer Uterus cancer Malignant tumor of head Father Diabetes HTN (hypertension) CVD (cardiovascular disease) Heart problem Maternal Aunt Breast cancer Brother Myocardial infarction S/P CABG x 4 Family/Other FH: mental illness Surgical History H/O: hysterectomy History of bunionectomy of both great toes History of colonoscopy History of tubal ligation Social History Household Members: Family Housing: Apartment Do you presently have visiting nurse or other home services: Yes (sister=major gifts officer) Alcohol intake: never Smoking Status: Never smoker Tobacco Type: Cigarette Use of substances other than those prescribed or required for medical reasons: No Currently Displaying Signs/Symptoms of Drug Intoxication Withdrawal: No Have you been hit, kicked, punched, or otherwise hurt by someone within the past year? If so, by whom?: No Do you feel safe in your current relationship?: No Current Relationship Is there a partner from a previous relationship who is making you feel unsafe now?: No Are you made to feel afraid or neglected: No Advance Directives: Yes Advance Directives on File: Yes Advance Directives Date on File: 03/09/21 Do you have thoughts of harming others: None Do you have a plan to hurt others: No Plan Recently lost weight without trying: No Current occupational status: disabled Meds Allergies Allergy/AdvReac Type Severity Reaction Status Date / Time dog dander [DOGS] Allergy Intermediate Respiratory Verified 02/23/21 14:28 distress ibuprofen [Ibuprofen] Allergy Unknown STOMACH Verified 02/23/21 14:28 UPSET, abdominal pain, nausea and vomiting prednisone Allergy Unknown hallucinations, Verified 02/23/21 14:28 higher than 20 shellfish derived Allergy Unknown Hives Verified 02/23/21 14:28 metformin AdvReac Unknown diarrhea Verified 02/23/21 14:28 metronidazole [From FLAGYL] AdvReac Unknown DIARRHEA Verified 02/23/21 14:28 Active Medications: Current Medications Generic Name Dose Route Start Last Admin Trade Name Freq PRN Reason Stop Dose Admin Acetaminophen 650 mg 03/09/21 22:48 03/09/21 23:40 Acetaminophen 325 Mg Tablet PO 650 mg Q6H PRN Administration Pain, Mild (Pain Scale 1-3) Albuterol/Ipratropium 3 ml 03/10/21 08:00 Albuterol/Iprat 2.5/0.5mg 3 Ml Ampul.Neb INHALE RQ4H WHILE AWAKE ELDER Albuterol/Ipratropium 3 ml 03/09/21 22:48 Albuterol/Iprat 2.5/0.5mg 3 Ml Ampul.Neb INHALE RQ4H PRN Shortness of Breath/Wheezing Atorvastatin Calcium 40 mg 03/10/21 21:00 Atorvastatin Calcium 40 Mg Tablet PO BEDTIME ELDER Enoxaparin Sodium 40 mg 03/09/21 22:48 03/09/21 23:40 Enoxaparin Sodium 40 Mg/0.4 Ml Syringe SUBCUT 40 mg Q24H ELDER Administration Hydroxychloroquine Sulfate 200 mg 03/10/21 09:00 Hydroxychloroquine Sulfate 200 Mg Tablet PO DAILY [facility] Azithromycin 500 mg/ Sodium 250 mls @ 125 mls/hr 03/09/21 22:48 03/10/21 01:40 Chloride IV Infused Q24H [facility] Infusion Insulin Human Lispro 10 unit 03/10/21 06:00 Insulin Lispro 100 Unit/Ml 3 Ml Vial SUBCUT 5XD [facility] Leflunomide 10 mg 03/10/21 09:00 Leflunomide 10 Mg Tablet PO DAILY [facility] Letrozole 2.5 mg 03/10/21 09:00 Letrozole 2.5 Mg Tablet PO DAILY [facility] [place] Carbonate 150 mg 03/10/21 09:00 [place] Carbonate 300 Mg Tablet PO BID [facility] Methylprednisolone Sodium Succinate 40 mg 03/09/21 22:48 03/09/21 23:40 Methylprednisolone Sod Succ 40 Mg/Ml Vial IVPUSH 40 mg Q12H [facility] Administration Montelukast Sodium 10 mg 03/10/21 21:00 Montelukast Sodium 10 Mg Tablet PO BEDTIME [facility] Non-Formulary Medication 31 unit 03/10/21 09:00 Insulin Degludec [Tresiba Flextouch U-100] SUBCUT DAILY [facility] Non-Formulary Medication 1 drop 03/09/21 22:48 Cyclosporine EYE-BOTH BID PRN Dry Eyes Ondansetron HCl 4 mg 03/09/21 22:48 Ondansetron Hcl 4 Mg/2 Ml Vial IVPUSH Q8H PRN Nausea and Vomiting Pharmacy Consult 1 each 03/09/21 19:33 Consult Rx Perform Med Rec MISCELLANE ONCE PRN Consult order Pregabalin 75 mg 03/10/21 09:00 Pregabalin 75 Mg Capsule PO BID [facility] Pregabalin 150 mg 03/10/21 21:00 Pregabalin 150 Mg Capsule PO BEDTIME [facility] Sodium Chloride 3 ml 03/10/21 00:00 03/10/21 00:12 0.9 % Sodium Chloride Flush 3 Ml Syringe IVFLUSH 3 ml QSHIFT [facility] Administration Trazodone HCl 100 mg 03/10/21 21:00 Trazodone Hcl 50 Mg Tablet PO BEDTIME [facility] Home Medications Medication Instructions Recorded Confirmed Last Taken Type letrozole 2.5 mg tablet 2.5 mg PO DAILY 08/24/20 03/09/21 03/08/21 History atorvastatin 40 mg tablet 40 mg PO BEDTIME 09/14/20 03/09/21 03/08/21 History cyclosporine 0.05 % eye drops in a 1 drp OPHTHALMIC (EYE) BID PRN 11/23/20 03/09/21 03/09/21 History dropperette trazodone 50 mg tablet 100 mg PO BEDTIME tab 11/23/20 03/09/21 03/08/21 History hydroxychloroquine 200 mg tablet 200 mg PO DAILY 01/26/21 03/09/21 03/08/21 History insulin aspart U-100 [Novolog 10 unit SUBCUT 5XD 03/09/21 03/09/21 03/08/21 History Flexpen U-100 Insulin] insulin degludec [Tresiba 45 unit SUBCUT DAILY 03/09/21 03/09/21 03/08/21 History FlexTouch U-100] leflunomide 1 tab PO DAILY 03/09/21 03/09/21 03/08/21 History lithium carbonate 150 mg PO BID 03/09/21 03/09/21 03/08/21 History Physical Exam Vital Signs and Narrative: Vital Signs: Last Vital Signs Temp 97.6 F 03/10/21 04:00 Pulse 99 03/10/21 04:00 Resp 20 03/10/21 04:00 BP 161/80 H 03/10/21 04:00 Pulse Ox 96 03/10/21 04:00 Body Mass Index 27.1 Const: General: cooperative and no acute distress Orientation/consciousness: patient oriented x3 Eyes: General: appearance normal, both eyes and all related structures Resp: Other: Using accessory muscles, significant wheezing Effort & Inspection: abnormal respiratory pattern and audible wheezes Auscultation: wheezes and diminished lung sounds Cardio: Rate: regular rate Rhythm: regular rhythm GI: Other: Left upper quadrant tenderness with no rebound or guarding Palpation (GI): Soft to palpation Auscultation: normal bowel sounds Skin: General skin exam: no rashes or lesions noted Neuro: General: patient oriented x3 Cognition (Neuro): normal cognition Extrem: General: Yes normal to inspection and Yes no pedal edema Results Labs CBC and Chem 7: 03/09/21 13:16 03/09/21 13:16 Labs: Laboratory Results - last 24 hr 03/09/21 03/09/21 03/09/21 12:41 13:16 13:16 MCV 90.4 MCH 29.1 MCHC 32.2 RDW 13.9 Plt Count 318 MPV 10.5 Immature Gran % (Auto) 0.8 H Neut % (Auto) 67.2 Lymph % (Auto) 25.2 [place] % (Auto) 5.8 Eos % (Auto) 0.8 Baso % (Auto) 0.2 Lymph # (Auto) 2.7 [place] # (Auto) 0.6 Eos # (Auto) 0.1 Baso # (Auto) 0.0 Abs Immat Gran (auto) 0.09 H Absolute Neuts (auto) 7.1 Absolute Nucleated RBC 0.000 Nucleated RBC % (auto) 0.0 Anion Gap 11 L Estim Creat Clear Calc 56.1 Estimated GFR > 60 POC Glucose Random Glucose 143 H Calcium 9.5 Urine Color Urine Appearance Urine pH Ur Specific [place] Urine Protein Urine Glucose (UA) Urine Ketones Urine Blood Urine Nitrite Ur Leukocyte Esterase Valproic Acid COVID-19 ([facility]) Negative COVID-19 Clin Com See Note 03/09/21 03/09/21 03/09/21 13:16 14:49 14:58 MCV MCH MCHC RDW Plt Count MPV Immature Gran % (Auto) Neut % (Auto) Lymph % (Auto) [place] % (Auto) Eos % (Auto) Baso % (Auto) Lymph # (Auto) [place] # (Auto) Eos # (Auto) Baso # (Auto) Abs Immat Gran (auto) Absolute Neuts (auto) Absolute Nucleated RBC Nucleated RBC % (auto) Anion Gap Estim Creat Clear Calc Estimated GFR POC Glucose 105 Random Glucose Calcium Urine Color YELLOW Urine Appearance CLEAR Urine pH 7.5 Ur Specific [place] 1.020 Urine Protein NEG Urine Glucose (UA) NEG Urine Ketones NEG Urine Blood NEG Urine Nitrite NEG Ur Leukocyte Esterase NEG Valproic Acid 76.5 COVID-19 ([facility]) COVID-19 Clin Com 03/09/21 03/09/21 21:34 23:53 MCV MCH MCHC RDW Plt Count MPV Immature Gran % (Auto) Neut % (Auto) Lymph % (Auto) [place] % (Auto) Eos % (Auto) Baso % (Auto) Lymph # (Auto) [place] # (Auto) Eos # (Auto) Baso # (Auto) Abs Immat Gran (auto) Absolute Neuts (auto) Absolute Nucleated RBC Nucleated RBC % (auto) Anion Gap Estim Creat Clear Calc Estimated GFR POC Glucose 383 H* 302 H Random Glucose Calcium Urine Color Urine Appearance Urine pH Ur Specific [place] Urine Protein Urine Glucose (UA) Urine Ketones Urine Blood Urine Nitrite Ur Leukocyte Esterase Valproic Acid COVID-19 ([facility]) COVID-19 Clin Com Imaging Radiologist's Impressions: Impressions Chest X-Ray 03/09/21 14:40 IMPRESSION: No acute disease. Abdomen/Pelvis CT 03/09/21 20:11 IMPRESSION: A cause for the patient's diffuse abdominal pain has not been found. Incidental note made of: 1. Hepatic steatosis. 2. Small stable adrenal nodule, unchanged over many years 3. Status post hysterectomy. Assessment and Plan (1) Asthma exacerbation: Status: Acute (2) Dyspnea: Status: Acute (3) COPD exacerbation: Status: Acute (4) Abdominal pain: Status: Acute (5) Melena: Status: Acute 60-year-old female with history of asthma/COPD who presents to the hospital with shortness of breath # dyspnea - secondary to asthma/COPD exacerbation - no evidence of pneumonia on chest x-ray, COVID-19 negative - patient dyspnea not requiring any oxygen, has significant wheezing, using accessory muscles, underwent multiple treatments in the ED with minimal relief of her dyspnea - will start her on Solu-Medrol, DuoNeb p.r.n. and scheduled - monitor respiratory status # COPD exacerbation - will start patient on Solu-Medrol 40 IV b.i.d., DuoNeb p.r.n. as well as scheduled - O2 if required - no evidence of pneumonia - given her severely of symptoms was started on azithromycin daily # abdominal pain - possibly secondary to constant cough - abdominal CT negative for any evidence of colitis or significant pathology - supportive measures # melena - patient reports black stool for the past 3 4 days - hemoglobin stable - will obtain will occult stool sample # HLD - continue statin # diabetes mellitus - continue home insulin - low-dose sliding scale insulin - diabetic diet DVT prophylaxis: Lovenox
[2021-03-10 04:59] LABS: Basophils Percent Auto 0.2 % (0-2); Hematocrit 39.9 % (37-47); Hemoglobin 12.5 g/dl (12.0-16.0); Imm Gran Abs Auto 0.16 X10*3/uL (0.00-0.03); Imm Gran Pct Auto 0.9 % (0.0-0.4); Lymphocytes Absolute Auto 1.1 X10*3/uL (1.2-4.9); Lymphocytes Percent Auto 6.4 % (20-40); MANUAL DIFF FLAG SCAN; Mean Corpuscular HGB Conc 31.3 g/dl (31.0-35.0); Mean Corpuscular Hemoglobin 28.9 pg (27.0-33.0); Mean Corpuscular Volume 92.4 fL (80-98); Mean Platelet Volume 11.3 fL (9.4-12.3); Monocytes Absolute Auto 0.2 X10*3/uL (0.1-1.2); Neutrophils Absolute Auto 16.1 X10*3/uL (2.0-8.3); Neutrophils Percent Auto 91.5 % (45-73); Platelet Count 353 X10*3/uL (160-400); Red Blood Count 4.32 X10*6/uL (4.20-5.50); SCAN SMEAR FLAG 1; White Blood Count 17.5 X10*3/uL (4.8-10.8)
[2021-03-10 05:07] LABS: Glucose, Whole Blood 233 mg/dL (60-115)
[2021-03-10] MEDS: Albuterol/Iprat 2.5/0.5MG 3 ML AMPUL.NEB INHALE ×5 (05:16→20:55)
[2021-03-10] MEDS: Benzonatate 100 MG CAPSULE PO ×2 (05:17→15:18)
[2021-03-10 05:20] LABS: SLIDE REVIEW VERIFIED
[2021-03-10 05:31] LABS: Anion Gap 18 (12-20); Blood Urea Nitrogen 15 mg/dL (9-16); Calcium 9.2 mg/dL (8.4-10.2); Carbon Dioxide 19 mmol/L (22-29); Chloride 107 mmol/L (96-108); Creatinine Clr Calc Pharmacy 50.1; Estimated Glomerular Filt Rate > 60; Glucose Random 258 mg/dL (60-115); Potassium 5.4 mmol/L (3.3-5.1); Sodium 139 mmol/L (135-145)
[2021-03-10 07:23] LABS: Glucose, Whole Blood 254 mg/dL (60-115)
[2021-03-10] MEDS: Pregabalin 75 MG CAPSULE PO ×2 (07:31→21:17)
[2021-03-10] MEDS: Lithium Carbonate 300 MG TABLET 150 MG PO ×2 (07:31→21:17)
[2021-03-10] MEDS: Acetaminophen 325 MG TABLET 650 MG PO (07:31)
[2021-03-10] MEDS: Insulin Lispro 100 UNIT/ML 3 ML VIAL SUBCUT ×4 (07:32→21:19)
--- NOTE | 2021-03-10 10:00 | MHC.CM.PN ---
PATIENT LIVES WITH SISTER AND NEPHEW. SISTER PROVIDES FEED IN WORKER SERVICES FOR PATIENT, INCLUDING SHOPPING, TRANSPORT, AND BATHING ASSIST WHEN NEEDED. SHE IS HOPING TO RETURN HOME WITH AN EVALUATION FOR HOME O2. SHE REPORTS THAT SHE HAS BEEN EVALED IN THE PAST, BUT FEELS SHE MAY QUALIFY. CASE MANAGEMENT FOLLOWING. HCP ON FILE AND VERFIFED.
--- NOTE | 2021-03-10 10:58 | P.PNIM_ITS ---
Subjective Subjective Date of Service: 03/10/21 Interval History: seen and examined reports coughig and shortness of breath rpeorts cough non-productive tells me she didnt get covid vaccine. tested positive in October per EMR ROS General - no fevers or chills Cardiovascular - no chest pain Respiratory - no shortness of breath or cough Abdominal- no abdominal pain, nausea, vomiting, diarrhea Physical Exam Vital Signs: Vital Signs: Last Vital Signs Temp 97.6 F 03/10/21 07:39 Pulse 90 03/10/21 07:39 Resp 18 03/10/21 07:39 BP 153/84 H 03/10/21 07:39 Pulse Ox 96 03/10/21 07:39 Body Mass Index 28.5 Const: Other: General - comfortable when not talking, tachypneic with conversing for 2-3 minutes Cardiovascular - regular rate and rhythm, S1-S2 Lungs - tachypnea, diffuse wheezing Abdomen - soft, nontender, no rebound or guarding Extremities - no edema bilaterally Neuro - awake and alert, no focal deficits Objective Data Current Medications Generic Name Dose Route Start Last Admin Trade Name Freq PRN Reason Stop Dose Admin Acetaminophen 650 mg 03/09/21 22:48 03/10/21 07:31 Acetaminophen 325 Mg Tablet PO 650 mg Q6H PRN Administration Pain, Mild (Pain Scale 1-3) Albuterol/Ipratropium 3 ml 03/10/21 08:00 03/10/21 07:30 Albuterol/Iprat 2.5/0.5mg 3 Ml Ampul.Neb INHALE 3 ml RQ4H WHILE AWAKE ELDER Administration Albuterol/Ipratropium 3 ml 03/09/21 22:48 03/10/21 05:16 Albuterol/Iprat 2.5/0.5mg 3 Ml Ampul.Neb INHALE 3 ml RQ4H PRN Administration Shortness of Breath/Wheezing Atorvastatin Calcium 40 mg 03/10/21 21:00 Atorvastatin Calcium 40 Mg Tablet PO BEDTIME [facility] Benzonatate 100 mg 03/10/21 05:04 03/10/21 05:17 Benzonatate 100 Mg Capsule PO 100 mg TID PRN Administration Cough Enoxaparin Sodium 40 mg 03/09/21 22:48 03/09/21 23:40 Enoxaparin Sodium 40 Mg/0.4 Ml Syringe SUBCUT 40 mg Q24H E[facility] Administration Hydroxychloroquine Sulfate 200 mg 03/10/21 09:00 Hydroxychloroquine Sulfate 200 Mg Tablet PO DAILY [facility] Azithromycin 500 mg/ Sodium 250 mls @ 125 mls/hr 03/09/21 22:48 03/10/21 01:40 Chloride IV Infused Q24H [facility] Infusion Insulin Human Lispro 10 unit 03/10/21 06:00 03/10/21 10:51 Insulin Lispro 100 Unit/Ml 3 Ml Vial SUBCUT Not Given 5XD [facility] Insulin Human Lispro 0 unit 03/10/21 07:30 03/10/21 07:32 Insulin Lispro 100 Unit/Ml 3 Ml Vial SUBCUT 6 unit QIDACHS [facility] Administration Protocol Leflunomide 10 mg 03/10/21 09:00 03/10/21 07:34 Leflunomide 10 Mg Tablet PO Not Given DAILY [facility] Letrozole 2.5 mg 03/10/21 09:00 03/10/21 08:53 Letrozole 2.5 Mg Tablet PO Not Given DAILY [facility] [place] Carbonate 150 mg 03/10/21 09:00 03/10/21 07:31 [place] Carbonate 300 Mg Tablet PO 150 mg BID [facility] Administration Methylprednisolone Sodium Succinate 40 mg 03/09/21 22:48 03/09/21 23:40 Methylprednisolone Sod Succ 40 Mg/Ml Vial IVPUSH 40 mg Q12H ELD[facility] Administration Montelukast Sodium 10 mg 03/10/21 21:00 Montelukast Sodium 10 Mg Tablet PO BEDTIME [facility] Non-Formulary Medication 31 unit 03/10/21 09:00 Insulin Degludec [Tresiba Flextouch U-100] SUBCUT DAILY [facility] Non-Formulary Medication 1 drop 03/09/21 22:48 Cyclosporine EYE-BOTH BID PRN Dry Eyes Ondansetron HCl 4 mg 03/09/21 22:48 Ondansetron Hcl 4 Mg/2 Ml Vial IVPUSH Q8H PRN Nausea and Vomiting Pharmacy Consult 1 each 03/09/21 19:33 Consult Rx Perform Med Rec MISCELLANE ONCE PRN Consult order Pregabalin 75 mg 03/10/21 09:00 03/10/21 07:31 Pregabalin 75 Mg Capsule PO 75 mg BID E[facility] Administration Pregabalin 150 mg 03/10/21 21:00 Pregabalin 150 Mg Capsule PO BEDTIME [facility] Sodium Chloride 3 ml 03/10/21 00:00 03/10/21 07:32 0.9 % Sodium Chloride Flush 3 Ml Syringe IVFLUSH 3 ml QSHIFT ELDER Administration Sodium Polystyrene Sulfonate 15 gm 03/10/21 10:56 Sodium Polystyrene Sulfon/Sorb 15 Gm/60 Ml Oral.Susp PO 03/10/21 10:57 ONCE ONE Trazodone HCl 100 mg 03/10/21 21:00 Trazodone Hcl 50 Mg Tablet PO BEDTIME [facility] Labs CBC & Chem 7: 03/10/21 04:20 03/10/21 04:20 Assessment and Plan (1) COPD exacerbation: Status: Acute Assessment and Plan: This is a 60-year-old female with a past medical history of asthma/COPD who reports that she quit smoking about 2-3 weeks ago and now presents to the hospital with complaints of progressive shortness of breath with associated dry cough. She is admitted for COPD exacerbation . 1. COPD/Asthma exacerbation still wheezing and tachypneic continue IV steroids continue updrafts add doxy 2. HyperK mild, 1 dose kayelate 15 check tomorrow 3. Abominal pain / ? melena secondary to cough, pain better no melena noted and h/h stable; check occult blood will give empiric ppi, recheck h/h this aftenroon, if dropping will get GI involved 4. Uncontrolled DM / hyperglycemia lantus + sliding scale likely worsened by steroid use continue her other baseline meds Full Code DVT pptx, d/c lovenox in light of self-reported melana, use mechanical device for now
[2021-03-10 11:23] LABS: Glucose, Whole Blood 201 mg/dL (60-115)
--- NOTE | 2021-03-10 11:37 | MHC.CM.PN ---
PER PHYSICIAN ROUNDS, PATIENT IS STILL SYMPTOMATIC. ANTICIPATE DISCHARGE TO HOME BY Saturday03/12/21
[2021-03-10] MEDS: guaiFEN/Codeine SF 200/20/10ML 10 ML LIQUID PO (11:44)
[2021-03-10] MEDS: Sodium Polystyrene Sulfon/Sorb 15 GM/60 ML ORAL.SUSP PO (11:44)
[2021-03-10] MEDS: Insulin Glargine,Hum.rec.anlog 100 UNIT/ML 10 ML VIAL 30 UNIT SUBCUT (11:45)
[2021-03-10] MEDS: methylPREDNISolone Sod Succ 40 MG/ML VIAL IVPUSH ×2 (11:52→21:57)
[2021-03-10] MEDS: Hydroxychloroquine Sulfate 200 MG TABLET PO (11:52)
[2021-03-10] MEDS: Omeprazole 20 MG CAPSULE.DR PO (11:53)
[2021-03-10 14:22] LABS: Hematocrit 39.3 % (37-47); Hemoglobin 12.7 g/dl (12.0-16.0)
[2021-03-10 14:48] LABS: OBS Int Ctl Valid YES; OBS1 NEGATIVE (NEGATIVE)
[2021-03-10 16:15] LABS: Glucose, Whole Blood 277 mg/dL (60-115)
[2021-03-10] MEDS: oxyCODONE HCl Immed Release 5 MG TABLET PO (17:31)
[2021-03-10 20:41] LABS: Glucose, Whole Blood 295 mg/dL (60-115)
[2021-03-10] MEDS: Montelukast Sodium 10 MG TABLET PO (21:17)
[2021-03-10] MEDS: traZODone HCL 50 MG TABLET 100 MG PO (21:17)
[2021-03-10] MEDS: Atorvastatin Calcium 40 MG TABLET PO (21:17)
[2021-03-10] MEDS: Pregabalin 150 MG CAPSULE PO (21:17)
[2021-03-10] MEDS: Azithromycin 500 MG in 0.9 % Sodium Chloride 250 ML 125 MG IV (21:58)
[2021-03-11] VITALS (10 sets, daily range): BP systolic 111–137; BP diastolic 57–78; PULSE 78–100; RESP 16–22; TEMP 36–36.7; O2SAT 94–97; BMI 28.5
[2021-03-11] MEDS: oxyCODONE HCl Immed Release 5 MG TABLET PO ×3 (02:55→21:33)
[2021-03-11] MEDS: Acetaminophen 325 MG TABLET 650 MG PO ×3 (02:56→21:32)
[2021-03-11] MEDS: Omeprazole 20 MG CAPSULE.DR PO (06:26)
[2021-03-11] MEDS: guaiFEN/Codeine SF 200/20/10ML 10 ML LIQUID PO ×2 (06:26→21:33)
[2021-03-11] MEDS: Albuterol/Iprat 2.5/0.5MG 3 ML AMPUL.NEB INHALE ×4 (07:42→20:31)
[2021-03-11 07:58] LABS: Glucose, Whole Blood 299 mg/dL (60-115)
[2021-03-11] MEDS: Insulin Glargine,Hum.rec.anlog 100 UNIT/ML 10 ML VIAL 31 UNIT SUBCUT (08:30)
[2021-03-11] MEDS: Insulin Lispro 100 UNIT/ML 3 ML VIAL SUBCUT ×4 (08:30→21:35)
[2021-03-11] MEDS: Letrozole 2.5 MG TABLET PO (08:31)
[2021-03-11] MEDS: Lithium Carbonate 300 MG TABLET 150 MG PO ×2 (08:31→21:33)
[2021-03-11] MEDS: Pregabalin 75 MG CAPSULE PO ×2 (08:31→21:33)
[2021-03-11] MEDS: 0.9 % Sodium Chloride Flush 3 ML SYRINGE IVFLUSH ×3 (08:31→23:54)
[2021-03-11] MEDS: Hydroxychloroquine Sulfate 200 MG TABLET PO (08:31)
[2021-03-11 09:27] LABS: Anion Gap 14 (12-20); Blood Urea Nitrogen 17 mg/dL (9-16); Calcium 9.6 mg/dL (8.4-10.2); Carbon Dioxide 27 mmol/L (22-29); Chloride 101 mmol/L (96-108); Creatinine Clr Calc Pharmacy 51.3; Estimated Glomerular Filt Rate > 60; Glucose Random 278 mg/dL (60-115); Potassium 4.5 mmol/L (3.3-5.1); Sodium 137 mmol/L (135-145)
--- NOTE | 2021-03-11 09:44 | P.PNIM_ITS ---
Subjective Subjective Date of Service: 03/11/21 Interval History: She feels improvement of her resp status although still wheezing and sob. She reports resolution of her abdominal pain has not had any recurrent melena and in fact is constipated Denies any chest pain or palpitations Physical Exam Vital Signs: Vital Signs: Last Vital Signs Temp 97.9 F 03/11/21 07:35 Pulse 100 03/11/21 07:42 Resp 22 H 03/11/21 07:35 BP 137/71 03/11/21 07:35 Pulse Ox 97 03/11/21 07:35 Body Mass Index 28.5 Const: General: cooperative and no acute distress Orientation/conscio usness: patient oriented x3 Eyes: General: appearance normal, both eyes and all related structures Resp: Other: significant wheezing, still uses some respi muscles to speak in full sentences ( Maybe baseline?) Effort & Inspection: normal respiratory effort Cardio: Rate: regular rate Rhythm: regular rhythm GI: Palpation (GI): Soft to palpation Auscultation: normal bowel sounds Skin: General skin exam: no rashes or lesions noted Neuro: General: patient oriented x3 Cognition (Neuro): normal cognition Extrem: General: Yes normal to inspection and Yes no pedal edema Objective Data Current Medications Generic Name Dose Route Start Last Admin Trade Name Freq PRN Reason Stop Dose Admin Acetaminophen 650 mg 03/09/21 22:48 03/11/21 02:56 Acetaminophen 325 Mg Tablet PO 650 mg Q6H PRN Administration Pain, Mild (Pain Scale 1-3) Albuterol/Ipratropium 3 ml 03/10/21 08:00 03/11/21 07:42 Albuterol/Iprat 2.5/0.5mg 3 Ml Ampul.Neb INHALE 3 ml RQ4H WHILE AWAKE ELDER Administration Albuterol/Ipratropium 3 ml 03/09/21 22:48 03/10/21 05:16 Albuterol/Iprat 2.5/0.5mg 3 Ml Ampul.Neb INHALE 3 ml RQ4H PRN Administration Shortness of Breath/Wheezing Atorvastatin Calcium 40 mg 03/10/21 21:00 03/10/21 21:17 Atorvastatin Calcium 40 Mg Tablet PO 40 mg BEDTIME ELDER Administration Benzonatate 100 mg 03/10/21 05:04 03/10/21 15:18 Benzonatate 100 Mg Capsule PO 100 mg TID PRN Administration Cough Doxycycline Hyclate 100 mg 03/10/21 12:00 03/11/21 01:07 Doxycycline Hyclate 100 Mg Tablet PO 100 mg Q12H ELDER Administration Guaifenesin/Codeine Phosphate 10 ml 03/10/21 11:08 03/11/21 06:26 Guaifen/Codeine Sf 200/20/10ml 10 Ml Liquid PO 10 ml Q6H PRN Administration Cough Hydroxychloroquine Sulfate 200 mg 03/10/21 09:00 03/11/21 08:31 Hydroxychloroquine Sulfate 200 Mg Tablet PO 200 mg DAILY [facility] Administration Azithromycin 500 mg/ Sodium 250 mls @ 125 mls/hr 03/09/21 22:48 03/11/21 00:10 Chloride IV Infused Q24H [facility] Infusion Insulin Glargine 31 unit 03/10/21 11:00 03/11/21 08:30 Insulin Glargine,Hum.Rec.Anlog 100 Unit/Ml 10 Ml Vial SUBCUT 31 unit DAILY [facility] Administration Insulin Human Lispro 0 unit 03/10/21 07:30 03/11/21 08:30 Insulin Lispro 100 Unit/Ml 3 Ml Vial SUBCUT 6 unit QIDACHS [facility] Administration Protocol Leflunomide 10 mg 03/10/21 09:00 03/11/21 08:31 Leflunomide 10 Mg Tablet PO Not Given DAILY [facility] Letrozole 2.5 mg 03/10/21 09:00 03/11/21 08:31 Letrozole 2.5 Mg Tablet PO 2.5 mg DAILY [facility] Administration [place] Carbonate 150 mg 03/10/21 09:00 03/11/21 08:31 [place] Carbonate 300 Mg Tablet PO 150 mg BID E[facility]ER Administration Methylprednisolone Sodium Succinate 40 mg 03/09/21 22:48 03/10/21 21:57 Methylprednisolone Sod Succ 40 Mg/Ml Vial IVPUSH 40 mg Q12H E[facility] Administration Montelukast Sodium 10 mg 03/10/21 21:00 03/10/21 21:17 Montelukast Sodium 10 Mg Tablet PO 10 mg BEDTIME E[facility] Administration Non-Formulary Medication 1 drop 03/09/21 22:48 Cyclosporine EYE-BOTH BID PRN Dry Eyes Omeprazole 20 mg 03/10/21 11:30 03/11/21 06:26 Omeprazole 20 Mg Capsule.Dr PO 20 mg DAILY@0630 E[facility] Administration Ondansetron HCl 4 mg 03/09/21 22:48 Ondansetron Hcl 4 Mg/2 Ml Vial IVPUSH Q8H PRN Nausea and Vomiting Oxycodone HCl 5 mg 03/10/21 17:13 03/11/21 02:55 Oxycodone Hcl Immed Release 5 Mg Tablet PO 5 mg Q6H PRN Administration Pain, Severe (Pain Scale 7-10) Pharmacy Consult 1 each 03/09/21 19:33 Consult Rx Perform Med Rec MISCELLANE ONCE PRN Consult order Pregabalin 75 mg 03/10/21 09:00 03/11/21 08:31 Pregabalin 75 Mg Capsule PO 75 mg BID [facility] Administration Pregabalin 150 mg 03/10/21 21:00 03/10/21 21:17 Pregabalin 150 Mg Capsule PO 150 mg BEDTIME [facility] Administration Sodium Chloride 3 ml 03/10/21 00:00 03/11/21 08:31 0.9 % Sodium Chloride Flush 3 Ml Syringe IVFLUSH 3 ml QSHIFT [facility] Administration Trazodone HCl 100 mg 03/10/21 21:00 03/10/21 21:17 Trazodone Hcl 50 Mg Tablet PO 100 mg BEDTIME [facility] Administration Labs CBC & Chem 7: 03/10/21 14:10 03/11/21 08:51 Assessment and Plan (1) Melena: Status: Acute (2) COPD exacerbation: Status: Acute (3) Dyspnea: Status: Acute (4) Asthma exacerbation: Status: Acute Assessment and Plan: This is a 60-year-old female with a past medical history of asthma/COPD who reports that she quit smoking about 2-3 weeks ago and now presents to the hospital with complaints of progressive shortness of breath with associated dry cough. She is admitted for COPD exacerbation . 1. COPD/Asthma exacerbation still wheezing and tachypneic continue IV steroids continue updrafts add doxy 2. HyperK - mild, received 1 dose kayelate 15 c- follow daily BMP 3. Abominal pain / ? melena - resolved - HGb stable - Most likely secondary to cough - no melena noted and h/h has remained stable; - pending occult blood - continue empiric PPI 4. Uncontrolled DM / hyperglycemia - Improving - continue lantus + sliding scale - likely worsened by steroid use continue her other baseline meds Full Code DVT pptx: Will start her on lovenox as pt hgb has remained stable, no recurrent melena or bloody stools
[2021-03-11] MEDS: methylPREDNISolone Sod Succ 40 MG/ML VIAL IVPUSH ×2 (09:46→21:40)
[2021-03-11] MEDS: Enoxaparin Sodium 40 MG/0.4 ML SYRINGE SUBCUT (10:10)
[2021-03-11] MEDS: polyethylene glycoL 3350 17 GM POWD.PACK PO (10:10)
[2021-03-11 11:57] LABS: Glucose, Whole Blood 217 mg/dL (60-115)
[2021-03-11 16:31] LABS: Glucose, Whole Blood 385 mg/dL (60-115)
[2021-03-11 20:35] LABS: Glucose, Whole Blood 300 mg/dL (60-115)
[2021-03-11] MEDS: Atorvastatin Calcium 40 MG TABLET PO (21:32)
[2021-03-11] MEDS: traZODone HCL 50 MG TABLET 100 MG PO (21:32)
[2021-03-11] MEDS: Pregabalin 150 MG CAPSULE PO (21:33)
[2021-03-11] MEDS: Montelukast Sodium 10 MG TABLET PO (21:33)
[2021-03-11] MEDS: Azithromycin 500 MG in 0.9 % Sodium Chloride 250 ML 125 MG IV (23:46)
[2021-03-12 04:00] VITALS: BP 134/71; PULSE 84; RESP 16; TEMP 36.4; O2SAT 94
[2021-03-12 06:00] VITALS: BMI 28.5
[2021-03-12] MEDS: Omeprazole 20 MG CAPSULE.DR PO (06:48)
[2021-03-12 07:33] VITALS: BP 135/89; PULSE 80; RESP 19; TEMP 36.4; O2SAT 95
[2021-03-12 07:36] LABS: Glucose, Whole Blood 293 mg/dL (60-115)
[2021-03-12] MEDS: Albuterol/Iprat 2.5/0.5MG 3 ML AMPUL.NEB INHALE ×2 (07:47→11:45)
[2021-03-12 07:48] VITALS: PULSE 87; O2SAT 95
[2021-03-12] MEDS: Insulin Lispro 100 UNIT/ML 3 ML VIAL SUBCUT ×2 (08:04→11:31)
[2021-03-12] MEDS: Lithium Carbonate 300 MG TABLET 150 MG PO (08:13)
[2021-03-12] MEDS: Hydroxychloroquine Sulfate 200 MG TABLET PO (08:14)
[2021-03-12] MEDS: Pregabalin 75 MG CAPSULE PO (08:15)
[2021-03-12] MEDS: Leflunomide 10 MG TABLET PO (08:15)
[2021-03-12] MEDS: Letrozole 2.5 MG TABLET PO (08:15)
[2021-03-12] MEDS: Insulin Glargine,Hum.rec.anlog 100 UNIT/ML 10 ML VIAL 31 UNIT SUBCUT (08:16)
[2021-03-12] MEDS: 0.9 % Sodium Chloride Flush 3 ML SYRINGE IVFLUSH (08:19)
[2021-03-12] MEDS: methylPREDNISolone Sod Succ 40 MG/ML VIAL IVPUSH (10:40)
[2021-03-12] MEDS: Enoxaparin Sodium 40 MG/0.4 ML SYRINGE SUBCUT (10:40)
[2021-03-12 11:11] VITALS: BP 130/69; PULSE 93; RESP 19; TEMP 36.8; O2SAT 96
[2021-03-12] MEDS: polyethylene glycoL 3350 17 GM POWD.PACK PO (11:37)
[2021-03-12 11:42] LABS: Glucose, Whole Blood 349 mg/dL (60-115)
[2021-03-12 11:46] VITALS: PULSE 101; PULSE 95; PULSE 96; O2SAT 101; O2SAT 95; O2SAT 96; O2SAT 99
--- NOTE | 2021-03-12 13:06 | P.DS_ITS ---
DS: Providers Provider Date of Service: 03/12/21 Date of admission: 03/09/21 21:47 Primary care physician: Adela Wasserman MD DS: Diagnosis Discharge Diagnosis (1) COPD exacerbation: Status: Acute (2) Dyspnea: Status: Acute (3) Asthma exacerbation: Status: Acute (4) Abdominal pain: Status: Acute DS: Medications Discharge Medications Home Medications: Home Medications Medication Instructions Recorded Confirmed letrozole 2.5 mg tablet 2.5 mg PO DAILY 08/24/20 03/09/21 atorvastatin 40 mg tablet 40 mg PO BEDTIME 09/14/20 03/09/21 cyclosporine 0.05 % eye drops in a 1 drp OPHTHALMIC (EYE) BID PRN 11/23/20 03/09/21 dropperette trazodone 50 mg tablet 100 mg PO BEDTIME tab 11/23/20 03/09/21 hydroxychloroquine 200 mg tablet 200 mg PO DAILY 01/26/21 03/09/21 Tresiba FlexTouch U-100 45 unit SUBCUT DAILY 03/09/21 03/09/21 insulin aspart U-100 [Novolog 10 unit SUBCUT 5XD 03/09/21 03/09/21 Flexpen U-100 Insulin] leflunomide 1 tab PO DAILY 03/09/21 03/09/21 lithium carbonate 150 mg PO BID 03/09/21 03/09/21 Previous Rx's Medication Instructions Recorded linagliptin 5 mg tablet 5 mg PO DAILY #30 tab 09/08/20 montelukast 10 mg tablet 10 mg PO BEDTIME #90 tab 11/28/20 albuterol sulfate 90 mcg/actuation 2 puff INHALATION Q4H PRN #8.5 g 12/02/20 aerosol inhaler pregabalin 150 mg capsule 150 mg PO BEDTIME #30 cap 12/16/20 pregabalin 75 mg capsule 75 mg PO BID #60 cap 12/16/20 ipratropium 0.5 mg-albuterol 3 mg 3 ml INHALATION Q6H PRN #180 ml 01/12/21 (2.5 mg base)/3 mL nebulization soln fluticasone propionate 230 2 puff PO BID #8 g 02/01/21 mcg-salmeterol 21 mcg/actuation HFA inhaler prednisone 10 mg tablet 10 mg PO DAILY #30 tab 02/07/21 azithromycin 250 mg PO DAILY 3 Days #3 tab 03/12/21 benzonatate 100 mg PO TID PRN #30 cap 03/12/21 omeprazole 20 mg PO DAILY@0630 #30 cap 03/12/21 prednisone 40 mg PO DAILY #8 tab 03/12/21 DS: Summary Hospital Course Hospital Course: Admission note HPI This is a 52-year-old female with past medical history of diabetes, asthma, COPD, hyperparathyroidism, hypertension, hypothyroidism, IBS, vitamin-D deficiency, recurrent colitis, breast cancer, among others who presents to the hospital with complaints of difficulty breathing, and wheezing. Patient reports that her symptoms started 2 weeks ago, has been having a dry cough chills, nausea, abdominal pain from other coughing, mostly localized to the left upper quadrant abdominal wall, has had soft bowel movements, feels that she has been having black stools every day 4-5 days, she has urinary frequency with no dys uria or urgency, and no lower extremity edema. Denies any chest pain, no palpitations, no headache or change in vision. No numbness tingling or weakness. On arrival to the ED patient's vital significant for temp of 97.9?, heart rate of 116, respiratory rate of 22, and blood pressure 165/87, satting 97% on room air Labs mostly unremarkable, UA negative, chest x-ray shows no acute disease CT abdomen is negative for any colitis or pathology Chest x-ray negative for any pneumonia or fluid overload COVID-19 negative Hospital course Patient was admitted to the hospital for treatment of dyspnea secondary to COPD exacerbation with decrease distance of walking. She reported abdominal pain and black stools but occult blood tested negative. She was treated with IV steroids, IV antibiotics and bronchodilator nebulizers with good response over the course of hospital stay. She remains to dyspnea at baseline which seems to be hair baseline. She follows as outpatient with Dr. Baum from pulmonology. Was able to ambulate on room air and maintain her oxygen level in 90s, did not qualify for home O2. To be discharged home on azithromycin, prednisone and to continue your home nebulizers and inhalers. Time Spent with Patient Time attestation: Total time spent providing and/or coordinating discharge services: Discharge coordination time: Greater than 30 minutes Physical Exam Vital Signs: Vital Signs: Last Vital Signs Temp 98.2 F 03/12/21 11:11 Pulse 101 H 03/12/21 11:46 Resp 19 03/12/21 11:11 BP 130/69 03/12/21 11:11 Pulse Ox 96 03/12/21 11:11 Body Mass Index 28.5 Const: Other: Constitutional : Alert, oriented, not in distress Neck : Normal inspection, Supple Cardiovascular : RRR, S1 S2, no lower extremity edema Respiratory : Fair bilateral air entry, no crackles, bilateral scattered wheezes Gastrointestinal: soft, lax, Normal bowel sounds, Non tender Skin : Warm/Dry, No rash Neurological : Alert & oriented x3, No focal deficit DS: Data Data Completed and Pending Labs on day of discharge: Laboratory Results - last 24 hr 03/11/21 03/11/21 03/12/21 16:26 20:27 07:30 POC Glucose 385 H* 300 H 293 H 03/12/21 11:08 POC Glucose 349 H Discharge Plan Discharge Patient Disposition: Home, Self-Care Discharge Diagnosis: COPD exacerbation Referrals: Adela Gipson MD [Primary Care Provider] - 1 Week Discharge Medications: New omeprazole 20 mg Capsule,Delayed Release(Dr/Ec) 20 mg PO DAILY@0630 Qty: 30 RF: 0 benzonatate 100 mg Capsule 100 mg PO TID PRN (Reason: Cough) Qty: 30 RF: 0 azithromycin 250 mg tablet 250 mg PO DAILY 3 Days Qty: 3 RF: 0 prednisone 20 mg tablet 40 mg PO DAILY Qty: 8 RF: 0 Continued linagliptin [Tradjenta] 5 mg tablet 5 mg PO DAILY Qty: 30 RF: 11 montelukast 10 mg tablet 10 mg PO BEDTIME Qty: 90 RF: 1 albuterol sulfate [Ventolin HFA] 90 mcg/actuation HFA aerosol inhaler 2 puff inhalation Q4H PRN (Reason: shortness of breath or wheezing) Qty: 8.5 RF: 2 ipratropium-albuterol 0.5 mg-3 mg(2.5 mg base)/3 mL solution for nebulization 3 ml inhalation Q6H PRN (Reason: wheezing) Qty: 180 RF: 2 fluticasone propion-salmeterol 230-21 mcg/actuation HFA aerosol inhaler 2 puff PO BID Qty: 8 RF: 3 prednisone 10 mg tablet 10 mg PO DAILY Qty: 30 RF: 2 lithium carbonate 150 mg capsule 150 mg PO BID RF: 0 Tresiba FlexTouch U-100 100 unit/mL (3 mL) insulin pen 45 unit subcut DAILY RF: 0 insulin aspart U-100 [Novolog Flexpen U-100 Insulin] 100 unit/mL (3 mL) insulin pen 10 unit subcut 5XD RF: 0 leflunomide 10 mg tablet 1 tab PO DAILY RF: 0 letrozole 2.5 mg tablet 2.5 mg PO DAILY RF: 0 trazodone 50 mg tablet 100 mg PO BEDTIME RF: 0 pregabalin 150 mg capsule 150 mg PO BEDTIME Qty: 30 RF: 5 pregabalin 75 mg capsule 75 mg PO BID Qty: 60 RF: 5 atorvastatin 40 mg tablet 40 mg PO BEDTIME RF: 0 cyclosporine 0.05 % dropperette 1 drp ophthalmic (eye) BID PRN (Reason: Dry Eyes) RF: 0 hydroxychloroquine 200 mg tablet 200 mg PO DAILY RF: 0 Discharge Orders: Discharge Order (Routine); Ordered 03/12/21 Ordered By: Yayo Cosme Diet: advance to usual diet Activity on Discharge: As tolerated Stand Alone Forms: Patient Portal Discharge page Care Plan Goals: Read below Health Concerns: Read below Plan of Treatment: admitted to the hospital for evaluation of difficulty breathing. Found to COPD exacerbation treated with nebulizers, steroids and antibiotic with good response over the course of hospital stay. You were able to ambulate on the room air with maintaining her oxygen level above 90%. Assessment: Continue to use nebulizer every 4-6 hours Continue prednisone for the next 4 days Remove carpets, open windows every day and keep the home ventilated Monitor your blood sugar at home and report readings to PCP for further adjustments of your home medications.
--- NOTE | 2021-03-12 13:22 | MHC.CM.PN ---
PT DISCHARGING HOME W/RESUMP OF [employer], PT HAD HOME O2 EVAL HOWEVER DID NOT QUALIFY FOR HOME O2, SISTER TO TRANSPORT.
[2021-03-12] MEDS: oxyCODONE HCl Immed Release 5 MG TABLET PO (13:37)
== END 2021-03-12 14:01 | disposition home or self-care (01) | DRG 202 ==
LOC: HO.ED 13:46 → HO.EDOVER 22:07 → HO.S3 22:17
PROVIDERS: Family Medicine; Admitting Provider Internal Medicine; Emergency Provider Emergency Medicine; PCP Internal Medicine; Visit Provider Student in an Organized Health Care Education/Training Program
DX: J45.41 Moderate persistent asthma with (acute) exacerbation (principal); J44.1 Chronic obstructive pulmonary disease with (acute) exacerbation; I10 Essential (primary) hypertension; E03.9 Hypothyroidism, unspecified; E11.65 Type 2 diabetes mellitus with hyperglycemia; E21.3 Hyperparathyroidism, unspecified; E87.5 Hyperkalemia; F31.9 Bipolar disorder, unspecified; Z20.822 Contact with and (suspected) exposure to COVID-19; Z88.6 Allergy status to analgesic agent; Z79.4 Long term (current) use of insulin; Z79.899 Other long term (current) drug therapy
CPT/HCPCS: 36415; 71046; 74176; 80048; 80164; 81003; 82272; 82947; 85014; 85018; 85025; 87635; 93005; 94640; 94644; 94645; 96365; 96372; 96375; 99285; 99291; J0456; J1650; J2920; J2930; J3475

== ENCOUNTER 2021-03-15 09:35 | Outpatient (REF) | payer MEDICARE, MEDICAID, SELFPAY ==
[2021-03-17 08:59] LABS: Hepatitis A Antibody IgM 0.89 Index (0-0.79)
[2021-03-17 09:54] LABS: ~Hepatitis A Antibody IgM GRAYZONE (Nonreactive)
== END 2021-03-15 09:36 | disposition home or self-care (01) ==
LOC: HO.LAB 09:35
PROVIDERS: PCP Internal Medicine; Visit Provider Student in an Organized Health Care Education/Training Program
DX: B15.9 Hepatitis A without hepatic coma (principal)
CPT/HCPCS: 36415; 86709

== ENCOUNTER 2021-03-16 08:25 | Outpatient (REF) | payer MEDICARE, MEDICAID, SELFPAY ==
[2021-03-16 09:09] LABS: Basophils Percent Auto 0.2 % (0-2); Eosinophils Absolute Auto 0.1 X10*3/uL (0.0-0.4); Eosinophils Percent Auto 0.5 % (0-4); Hematocrit 39.6 % (37-47); Hemoglobin 12.7 g/dl (12.0-16.0); Imm Gran Abs Auto 0.25 X10*3/uL (0.00-0.03); Imm Gran Pct Auto 1.7 % (0.0-0.4); Lymphocytes Absolute Auto 5.4 X10*3/uL (1.2-4.9); Lymphocytes Percent Auto 36.7 % (20-40); MANUAL DIFF FLAG SCAN; Mean Corpuscular HGB Conc 32.1 g/dl (31.0-35.0); Mean Corpuscular Hemoglobin 29.1 pg (27.0-33.0); Mean Corpuscular Volume 90.6 fL (80-98); Monocytes Percent Auto 6.8 % (2-11); Neutrophils Percent Auto 54.1 % (45-73); Platelet Count 338 X10*3/uL (160-400); Red Blood Count 4.37 X10*6/uL (4.20-5.50); Red Cell Distribution Width 14.2 % (11.0-16.0); SCAN SMEAR FLAG 1; White Blood Count 14.8 X10*3/uL (4.8-10.8)
[2021-03-16 09:25] LABS: Lithium 0.21 mmol/L (0.60-1.20)
[2021-03-16 09:35] LABS: Alanine Aminotransferase 22 U/L (0-31); Albumin Level 3.7 g/dL (3.5-5.0); Alkaline Phosphatase 71 U/L (39-117); Anion Gap 11 (12-20); Aspartate Amino Transferase 10 U/L (5-31); Bilirubin Total 0.2 mg/dL (0.0-1.0); Blood Urea Nitrogen 14 mg/dL (9-16); Calcium 9.2 mg/dL (8.4-10.2); Carbon Dioxide 28 mmol/L (22-29); Chloride 104 mmol/L (96-108); Cholesterol 163 mg/dL; Estimated Glomerular Filt Rate > 60; Glucose Fasting 208 mg/dL (60-99); HDL Cholesterol 43 mg/dL; LDL Cholesterol Calculated 66 mg/dl; Sodium 139 mmol/L (135-145); Total Protein 6.1 g/dL (6.5-8.0); Triglycerides 271 mg/dL
[2021-03-16 09:37] LABS: Alanine Aminotransferase 22 U/L (0-31); Albumin Level 3.7 g/dL (3.5-5.0); Alkaline Phosphatase 72 U/L (39-117); Aspartate Amino Transferase 10 U/L (5-31); Bilirubin Direct < 0.2 mg/dL (0.0-0.5); Bilirubin Total 0.2 mg/dL (0.0-1.0); Total Protein 6.2 g/dL (6.5-8.0)
[2021-03-16 09:39] LABS: SLIDE REVIEW VERIFIED
[2021-03-16 09:54] LABS: Microalbum/Creatinine Ratio Ur 7.5 ug/mg cr
[2021-03-16 10:28] LABS: Thyroid Stimulating Hormone 1.74 uIU/mL (0.32-4.0)
[2021-03-16 10:29] LABS: Valproate < 2.0 mcg/mL (50.0-100.0)
[2021-03-16 11:10] LABS: T4 Thyroxine 6.1 ug/dL (4.5-12.0)
[2021-03-21 11:12] LABS: Vitamin D 25-OH, D2 <4 ng/mL; Vitamin D 25-OH, D3 29 ng/mL; Vitamin D 25-OH, Total 29 ng/mL (30-100)
== END 2021-03-16 08:26 | disposition home or self-care (01) ==
LOC: HO.LAB 08:25
PROVIDERS: Absent Provider Clinical Nurse Specialist Psychiatric/Mental Health, Child & Adolescent; PCP Internal Medicine; Visit Provider Internal Medicine
DX: Z51.81 Encounter for therapeutic drug level monitoring (principal); M05.9 Rheumatoid arthritis with rheumatoid factor, unspecified; M79.7 Fibromyalgia; D64.9 Anemia, unspecified; E55.9 Vitamin D deficiency, unspecified; E78.5 Hyperlipidemia, unspecified; E11.65 Type 2 diabetes mellitus with hyperglycemia; Z79.899 Other long term (current) drug therapy
CPT/HCPCS: 36415; 80053; 80061; 80076; 80164; 80178; 82043; 82248; 82306; 84436; 84443; 85025; 99212

== ENCOUNTER → 2021-03-20 13:44 | Outpatient (BNVA) | payer MEDICARE, MEDICAID, SELFPAY | PROVIDERS: PCP Internal Medicine; Visit Provider Internal Medicine | DX: J44.9 Chronic obstructive pulmonary disease, unspecified (principal); R05 Cough | CPT/HCPCS: 99212 ==

== ENCOUNTER 2021-03-21 11:26 | Outpatient (REF) | payer MEDICARE, MEDICAID, SELFPAY ==
[2021-03-22 08:04] LABS: Hepatitis A Antibody IgM 0.79 Index (0-0.79); ~Hepatitis A Antibody IgM Nonreactive (Nonreactive)
== END 2021-03-21 11:27 | disposition home or self-care (01) ==
LOC: HO.LAB 11:26
PROVIDERS: PCP Internal Medicine; Visit Provider Student in an Organized Health Care Education/Training Program
DX: B15.9 Hepatitis A without hepatic coma (principal)
CPT/HCPCS: 36415; 86709

== ENCOUNTER 2021-03-24 09:53 | Day surgery (SDC) | payer MEDICARE, MEDICAID, SELFPAY ==
[2021-03-21 09:43] VITALS: BMI 28.0
--- NOTE | 2021-03-22 11:57 | HO.ANESPROP2 ---
Documented by User: Chelsie Leon 03/22/21 12:02 HPI - Anesthesia Eval Consult details Narrative: 60yo F for Colonoscopy Per Pulm: FOR COLONOSCOPY, NO ABSOLUTE CONTRAINDICATION IS NOTED. BUT SHE MAY CONTINUE TO HAVE MILD INTERMITTENT DRY COUGH. PMFSH Active Problems Active Problems: All Active Problems (Updated 03/20/21 @ 14:46 by Marry Baum MD) Cough (Acute) Asthma (Acute) COPD (chronic obstructive pulmonary disease) (Acute) Vulvar abscess (Acute) COVID-19 (Acute) History of ischemic colitis (Acute) Chronic constipation (Acute) Colon cancer screening (Acute) History of Helicobacter pylori infection (Acute) Hepatitis A test positive (Acute) Breast cancer (Acute) Change in bowel habits (Acute) Abdominal bloating (Acute) Infiltrating ductal carcinoma of left breast, stage 2 (Acute) Insomnia (Acute) Dyslipidemia (Acute) Bipolar 1 disorder, depressed (Acute) Cough (Acute) Restrictive airway disease (Acute) Vitamin D deficiency (Acute) Osteoporosis (Acute) Breast cancer (Acute) Hyperparathyroidism (Acute) Thyroid nodule (Acute) T2DM (type 2 diabetes mellitus) (Acute) Fibromyalgia (Acute) Seropositive rheumatoid arthritis (Acute) Reactive airways dysfunction syndrome (Acute) Allergic rhinitis (Acute) Irritable bowel (Acute) Colitis (Acute) Anxiety (Acute) Allergic rhinitis (Acute) Bronchial asthma (Acute) Diabetes type 2, uncontrolled (Acute) Past Medical History Medical History Allergic rhinitis Allergic rhinitis Anxiety Asthma Asthma Bipolar 1 disorder, depressed Breast cancer Bronchial asthma Colitis Cough Depression Diabetes type 2, uncontrolled Dyslipidemia Fibromyalgia Hyperparathyroidism Hypertension Hypothyroid Hypothyroid IDDM (insulin dependent diabetes mellitus) IDDM (insulin dependent diabetes mellitus) Infiltrating ductal carcinoma of left breast, stage 2 Insomnia Irritable bowel Osteoporosis Reactive airways dysfunction syndrome Restrictive airway disease Seropositive rheumatoid arthritis T2DM (type 2 diabetes mellitus) Thyroid nodule Vitamin D deficiency Family History Family History Mother Diabetes HTN (hypertension) Breast cancer Uterus cancer Malignant tumor of head Father Diabetes HTN (hypertension) CVD (cardiovascular disease) Heart problem Maternal Aunt Breast cancer Brother Myocardial infarction S/P CABG x 4 Family/Other FH: mental illness Surgical History Surgical History H/O: hysterectomy History of bunionectomy of both great toes History of colonoscopy History of esophagogastroduodenoscopy (EGD) History of lumpectomy of left breast History of pubovaginal sling History of tubal ligation Social History Social History Household Members: Family Household Members Other:: sister Housing: Apartment Alcohol intake: never Smoking Status: Former smoker Tobacco Type: Cigarette Years Smoked: 46 Smoking Quit Date: 01/16/2021 Use of substances other than those prescribed or required for medical reasons: No Are you DNR?: No Advance Directives: Yes Advance Directives Information Provided: Yes Advance Directives on File: Yes Advance Directives Date on File: 03/09/21 service: No Current occupational status: disabled Meds Allergies Allergy/AdvReac Type Severity Reaction Status Date / Time dog dander [DOGS] Allergy Intermediate Respiratory Verified 03/21/21 12:58 distress ibuprofen [Ibuprofen] Allergy Intermediate STOMACH Verified 03/21/21 12:58 UPSET, abdominal pain, nausea and vomiting prednisone Allergy Intermediate hallucinations, Verified 03/21/21 12:58 higher than 20 shellfish derived Allergy Intermediate Hives Verified 03/21/21 12:58 metformin AdvReac Intermediate diarrhea Verified 03/21/21 12:58 metronidazole [From FLAGYL] AdvReac Intermediate DIARRHEA Verified 03/21/21 12:58 Home Medications Medication Instructions Recorded Confirmed Last Taken Type letrozole 2.5 mg tablet 2.5 mg PO DAILY 08/24/20 03/21/21 03/08/21 History atorvastatin 40 mg tablet 40 mg PO BEDTIME 09/14/20 03/21/21 03/08/21 History cyclosporine 0.05 % eye drops in a 1 drp OPHTHALMIC (EYE) BID PRN 11/23/20 03/21/21 03/09/21 History dropperette trazodone 50 mg tablet 100 mg PO BEDTIME tab 11/23/20 03/21/21 03/08/21 History hydroxychloroquine 200 mg tablet 200 mg PO DAILY 01/26/21 03/21/21 03/08/21 History insulin aspart U-100 [Novolog 10 unit SUBCUT 5XD 03/09/21 03/21/21 03/23/21 History Flexpen U-100 Insulin] divalproex 250 mg tablet,extended mg PO 03/20/21 03/21/21 Unknown History release 24 hr lisinopril 2.5 mg tablet 2.5 mg PO DAILY 03/20/21 03/21/21 Unknown History lithium carbonate 150 mg capsule 150 mg PO BID 03/20/21 03/21/21 Unknown History loteprednol etabonate 0.5 % eye 1 drp OPHTHALMIC (EYE) BID 03/20/21 03/21/21 Unknown History drops,suspension insulin degludec 100 unit/mL (3 50 unit SUBCUT DAILY ml 03/21/21 03/21/21 03/23/21 History mL) subcutaneous pen Exam Exam Date and Time: March 22, 2021 1157 Height,Weight and Vital Signs: Height 4 ft 10 in Weight 60.781 kg Narrative Narrative: PFT 01/2021 Moderate to severe obstructive ventilatory defect with positive bronchodilator response. Decreased expiratory reserve volume suggests extrathoracic restriction likely secondary to obesity. The patient was not able to perform functional residual capacity maneuver secondary to cough and dyspnea. EKG 02/2021 Vent. Rate : 101 BPM Atrial Rate : 101 BPM P-R Int : 132 ms QRS Dur : 082 ms QT Int : 338 ms P-R-T Axes : 071 071 064 degrees QTc Int : 438 ms Sinus tachycardia Otherwise normal ECG When compared with ECG of 12-JUL-2020 15:53, No significant change was found Assessment and Plan Assessment Anesthesia Assessment: Chart Reviewed Documented by User: Millicent Brock 03/24/21 11:41 [facility] Past Medical History Medical History Allergic rhinitis Allergic rhinitis Anxiety Asthma Asthma Bipolar 1 disorder, depressed Breast cancer Bronchial asthma Colitis Cough Depression Diabetes type 2, uncontrolled Dyslipidemia Fibromyalgia Hyperparathyroidism Hypertension Hypothyroid Hypothyroid IDDM (insulin dependent diabetes mellitus) IDDM (insulin dependent diabetes mellitus) Infiltrating ductal carcinoma of left breast, stage 2 Insomnia Irritable bowel Osteoporosis Reactive airways dysfunction syndrome Restrictive airway disease Seropositive rheumatoid arthritis T2DM (type 2 diabetes mellitus) Thyroid nodule Vitamin D deficiency Family History Family History Mother Diabetes HTN (hypertension) Breast cancer Uterus cancer Malignant tumor of head Father Diabetes HTN (hypertension) CVD (cardiovascular disease) Heart problem Maternal Aunt Breast cancer Brother Myocardial infarction S/P CABG x 4 Family/Other FH: mental illness Surgical History Surgical History H/O: hysterectomy History of bunionectomy of both great toes History of colonoscopy History of esophagogastroduodenoscopy (EGD) History of lumpectomy of left breast History of pubovaginal sling History of tubal ligation Social History Social History Household Members: Family Household Members Other:: sister Housing: Apartment Alcohol intake: never Smoking Status: Former smoker Tobacco Type: Cigarette Years Smoked: 46 Smoking Quit Date: 01/16/2021 Use of substances other than those prescribed or required for medical reasons: No Are you DNR?: No Advance Directives: Yes Advance Directives Information Provided: Yes Advance Directives on File: Yes Advance Directives Date on File: 03/09/21 service: No Current occupational status: disabled Meds Allergies Allergy/AdvReac Type Severity Reaction Status Date / Time dog dander [DOGS] Allergy Intermediate Respiratory Verified 03/21/21 12:58 distress ibuprofen [Ibuprofen] Allergy Intermediate STOMACH Verified 03/21/21 12:58 UPSET, abdominal pain, nausea and vomiting prednisone Allergy Intermediate hallucinations, Verified 03/21/21 12:58 higher than 20 shellfish derived Allergy Intermediate Hives Verified 03/21/21 12:58 metformin AdvReac Intermediate diarrhea Verified 03/21/21 12:58 metronidazole [From FLAGYL] AdvReac Intermediate DIARRHEA Verified 03/21/21 12:58 Home Medications Medication Instructions Recorded Confirmed Last Taken Type letrozole 2.5 mg tablet 2.5 mg PO DAILY 08/24/20 03/21/21 03/08/21 History atorvastatin 40 mg tablet 40 mg PO BEDTIME 09/14/20 03/21/21 03/08/21 History cyclosporine 0.05 % eye drops in a 1 drp OPHTHALMIC (EYE) BID PRN 11/23/20 03/21/21 03/09/21 History dropperette trazodone 50 mg tablet 100 mg PO BEDTIME tab 11/23/20 03/21/21 03/08/21 History hydroxychloroquine 200 mg tablet 200 mg PO DAILY 01/26/21 03/21/21 03/08/21 History insulin aspart U-100 [Novolog 10 unit SUBCUT 5XD 03/09/21 03/21/21 03/23/21 History Flexpen U-100 Insulin] divalproex 250 mg tablet,extended mg PO 03/20/21 03/21/21 Unknown History release 24 hr lisinopril 2.5 mg tablet 2.5 mg PO DAILY 03/20/21 03/21/21 Unknown History lithium carbonate 150 mg capsule 150 mg PO BID 03/20/21 03/21/21 Unknown History loteprednol etabonate 0.5 % eye 1 drp OPHTHALMIC (EYE) BID 03/20/21 03/21/21 Unknown History drops,suspension insulin degludec 100 unit/mL (3 50 unit SUBCUT DAILY ml 03/21/21 03/21/21 03/23/21 History mL) subcutaneous pen Exam Airway Mallampati Class: II TM Dist: >3cm Neck ROM: Full Loose/Missing/Broken Teeth: No Heart: RRR Lungs: CTA Assessment and Plan Assessment Anesthesia Assessment: Anesthesia Plan Discussed and Chart Reviewed Final Anesthetic Review NPO: Yes ASA Class: III Final Preanesthetic Review: Meds/Allgs Chart Reviewed, Consent Obtained/Reviewed and Anes Risks/Benef Reviewed Patient Risk: Intermediate Procedure Risk: Low Anesthetic Plan Anesthetic Plan: MAC: Disposition: Standard PACU
[2021-03-24 10:40] VITALS: BMI 28.2
[2021-03-24 10:44] VITALS: BP 134/76; PULSE 89; RESP 16; TEMP 36.7; O2SAT 98
[2021-03-24 10:50] LABS: Glucose, Whole Blood 91 mg/dL (60-115)
[2021-03-24] MEDS: Lactated Ringers 1,000 ML 100 ML IVCONT (10:57)
--- NOTE | 2021-03-24 11:59 | P.OP_ITS ---
Operative Note Operative Note Date of Service: 03/24/21 Narrative: Pre-op diagnosis: Abdominal bloating, change in bowel habits, fecal incontinence. Post-op diagnosis: other (Diverticulosis) Procedure: COLONOSCOPY TILL CECUM WITH RANDOM BIOPSIES Consent: Indications for the procedure and potential complications of bleeding, perforation, reaction to medications and missed diagnosis were discussed with the patient and informed consent was obtained. Instrument: Olympus PCF H 190 L variable stiffness pediatric colonoscope Monitoring: Vital signs and clinical assessment, intermittent blood pressure monitoring, continuous EKG monitoring, Pulse oximetry and Carbon Dioxide monitoring were done throughout the procedure. Colon withdrawl time was 19 minutes. Procedure: The patient was placed in the left lateral decubitis position and pre-procedure medications were administered. After a digital rectal examination of the ano-rectum, the video colonoscope was inserted into the rectum and advanced through the colon to the cecum. The colonoscope was slowly withdrawn in a retrograde panoramic fashion and the colon mucosa was carefully examined including a retroflexed view of the rectum. Findings and interventions are described below. Procedure Difficulty: There was narrowing in the sigmoid colon from 25-30 cm (due to severe diverticulosis) which was navigated with difficulty. No maneuvers were required Findings: Terminal Ileum: Multiple attempts to intubate the terminal ileum were unsuccessful. Cecum: Normal Ascending Colon: moderate diverticulosis Transverse Colon: Moderate diverticulosis Descending Colon: Severe diverticulosis Sigmoid Colon: Severe diverticulosis Rectum: Normal Ano-rectum: Lax anal sphincter Colon preparation: Good after some irrigation Impression and Post Procedure Diagnosis: Colonoscopy Findings: No polyps were detected. Random biopsies were obtained from the right and left colon Moderate to severe diverticulosis seen in the entire colon Of note pt denies additional episodes of fecal incontinence. Plan: Await pathology results Patient has an appointment on 04/20/21 in the [facility] with Ruth Roman M.D. Repeat Colonoscopy interval based on path results - in 3-5 years if polyps are adenomatous and 10 years if polyps are hyperplastic. A handout on diverticulosis was were given in the discharge area Surgeon: Ruth Roman MD Anesthesia: MAC (Aditi Dc CRNA) Was an Montessori Lead Teacher used for this Procedure?: Yes Montessori Lead Teacher: Ian Walls Estimated blood loss (mL): 0 Pathology: other (A: RIGHT SIDE COLON BXS R/O MICROSCOPIC COLITIS B: LEFT SIDE COLON BXS) Condition: stable Disposition: PACU
--- NOTE | 2021-03-24 11:59 | MHC.SHP ---
Pre-Procedural Eval Section A The patient is an INPATIENT: No Changes since office visit: Yes Patient answered all questions; No Cold of Flu in the past 2 weeks, No New Medical Problems and No Changes in Medication The History & Physical has been completed within 30 days and I have reviewed it.: Yes Section B Chief Complaint: Screening Allergies: Allergies Allergy/AdvReac Type Severity Reaction Status Date / Time dog dander [DOGS] Allergy Intermediate Respiratory Verified 03/21/21 12:58 distress ibuprofen [Ibuprofen] Allergy Intermediate STOMACH Verified 03/21/21 12:58 UPSET, abdominal pain, nausea and vomiting prednisone Allergy Intermediate hallucinations, Verified 03/21/21 12:58 higher than 20 shellfish derived Allergy Intermediate Hives Verified 03/21/21 12:58 metformin AdvReac Intermediate diarrhea Verified 03/21/21 12:58 metronidazole [From FLAGYL] AdvReac Intermediate DIARRHEA Verified 03/21/21 12:58 Exam Surgical H&P Exam: Normal: Heart, Normal: Lungs, Normal: Extremities and Normal: Abdomen Plan Diagnosis/Plan: Unchanged I have reviewed the history and physical and performed a pertinent physical examination on my patient. No changes have occurred unless specified.
[2021-03-24 12:32] VITALS: BP 113/73; PULSE 87; RESP 14; TEMP 37.4; O2SAT 98
[2021-03-24 12:47] VITALS: BP 121/83; PULSE 87; RESP 20; O2SAT 98
== END 2021-03-24 13:21 | disposition home or self-care (01) ==
PROVIDERS: PCP Internal Medicine; Visit Provider Internal Medicine Gastroenterology
PROC: 0DJD8ZZ Inspection of Lower Intestinal Tract, Via Natural or Artificial Opening Endoscopic (ICD-10-PCS; CPT 45378; principal; 2021-03-24 11:50)
DX: Z12.11 Encounter for screening for malignant neoplasm of colon (principal); K57.30 Diverticulosis of large intestine without perforation or abscess without bleeding; K62.89 Other specified diseases of anus and rectum; R15.9 Full incontinence of feces; I10 Essential (primary) hypertension; E11.9 Type 2 diabetes mellitus without complications; J44.9 Chronic obstructive pulmonary disease, unspecified; F31.9 Bipolar disorder, unspecified; Z79.4 Long term (current) use of insulin; Z87.891 Personal history of nicotine dependence; Z79.899 Other long term (current) drug therapy
CPT/HCPCS: 45380; 82947; 88305

== ENCOUNTER → 2021-04-05 09:17 | Outpatient (BNVA) | payer MEDICARE, MEDICAID, SELFPAY | PROVIDERS: PCP Internal Medicine; Visit Provider Internal Medicine | CPT/HCPCS: Q3014 ==

== ENCOUNTER 2021-04-10 11:27 | Emergency (ER) | payer MEDICARE, MEDICAID, SELFPAY ==
[2021-04-10 11:36] VITALS: BP 173/98; PULSE 105; RESP 19; TEMP 37.1; O2SAT 97; BMI 27.1
[2021-04-10 13:03] LABS: Glucose, Whole Blood 124 mg/dL (60-115)
== END 2021-04-10 16:47 | disposition left against medical advice (07) ==
PROVIDERS: Emergency Provider Emergency Medicine; PCP Internal Medicine
DX: R53.1 Weakness (principal)
CPT/HCPCS: 82947; 99282

== ENCOUNTER 2021-04-17 14:03 | Emergency (ER) | payer MEDICARE, MEDICAID, SELFPAY ==
[2021-04-17 14:28] VITALS: BP 147/83; PULSE 120; RESP 17; TEMP 36.1; O2SAT 96; BMI 27.1
--- NOTE | 2021-04-17 16:23 | ED_ITS ---
HPI - Female Genitourinary General Chief complaint: Urogenital-Female Stated complaint: VAGINAL CYST Time Seen by Provider: 04/17/21 16:06 Source: patient Mode of arrival: ambulatory Limitations: no limitations History of Present Illness HPI Narrative: 60-year-old female here with swelling, redness to the right vulva. Notice x3 days. No fevers or chills. No urinary symptoms, vaginal discharge. Blood sugars running normal Related Data Home Medications Medication Instructions Recorded Confirmed letrozole 2.5 mg tablet 2.5 mg PO DAILY 08/24/20 04/05/21 atorvastatin 40 mg tablet 40 mg PO BEDTIME 09/14/20 04/05/21 trazodone 50 mg tablet 100 mg PO BEDTIME tab 11/23/20 04/05/21 insulin aspart U-100 [Novolog 10 unit SUBCUT 5XD 03/09/21 04/05/21 Flexpen U-100 Insulin] lisinopril 2.5 mg tablet 2.5 mg PO DAILY 03/20/21 04/05/21 lithium carbonate 150 mg capsule 150 mg PO BID 03/20/21 04/05/21 insulin degludec 100 unit/mL (3 50 unit SUBCUT DAILY ml 03/21/21 04/05/21 mL) subcutaneous pen cyclosporine 0.05 % eye drops in a 1 drp OPHTHALMIC (EYE) BID PRN 04/05/21 04/05/21 dropperette loteprednol etabonate 0.5 % eye 1 drp OPHTHALMIC (EYE) BID 04/05/21 04/05/21 drops,suspension Previous Rx's Medication Instructions Recorded linagliptin 5 mg tablet 5 mg PO DAILY #30 tab 09/08/20 montelukast 10 mg tablet 10 mg PO BEDTIME #90 tab 11/28/20 albuterol sulfate 90 mcg/actuation 2 puff INHALATION Q4H PRN #8.5 g 12/02/20 aerosol inhaler pregabalin 150 mg capsule 150 mg PO BEDTIME #30 cap 12/16/20 pregabalin 75 mg capsule 75 mg PO BID #60 cap 12/16/20 ipratropium 0.5 mg-albuterol 3 mg 3 ml INHALATION Q6H PRN #180 ml 01/12/21 (2.5 mg base)/3 mL nebulization soln fluticasone propionate 230 2 puff PO BID #8 g 02/01/21 mcg-salmeterol 21 mcg/actuation HFA inhaler prednisone 10 mg tablet 10 mg PO DAILY #30 tab 02/07/21 benzonatate 100 mg PO TID PRN #30 cap 03/12/21 omeprazole 20 mg PO DAILY@0630 #30 cap 03/12/21 leflunomide 20 mg tablet 20 mg PO DAILY #90 tab 03/14/21 lancets 28 gauge #200 ea 03/21/21 pen needle, diabetic 31 gauge x #200 ea 03/21/21 5/16 etanercept 50 mg/mL (1 mL) 50 mg SUBCUT QWEEK #4 ml 03/22/21 subcutaneous pen injector blood sugar diagnostic #200 ea 04/06/21 hydroxychloroquine 200 mg tablet 200 mg PO DAILY #30 tab 04/06/21 cephalexin 500 mg PO BID #14 cap 04/17/21 Allergies Allergy/AdvReac Type Severity Reaction Status Date / Time dog dander [DOGS] Allergy Intermediate Respiratory Verified 04/05/21 10:13 distress ibuprofen [Ibuprofen] Allergy Intermediate STOMACH Verified 04/05/21 10:13 UPSET, abdominal pain, nausea and vomiting prednisone Allergy Intermediate hallucinations, Verified 04/05/21 10:13 higher than 20 shellfish derived Allergy Intermediate Hives Verified 04/05/21 10:13 metformin AdvReac Intermediate diarrhea Verified 04/05/21 10:13 metronidazole [From FLAGYL] AdvReac Intermediate DIARRHEA Verified 04/05/21 10:13 Review of Systems Review of Systems: Yes all other systems are reviewed and are negative Constitutional: Constitutional: Reports no additional constitutional complaints, Denies body ache(s), Denies chills, Denies fever(s), Denies headache(s) and Denies weakness Eyes: Eyes: Reports no additional eye complaints and Denies change in vision ENT: Reports system reviewed and no additional complaints, except as docum ented, Denies dizziness, Denies headache(s), Denies nasal congestion, Denies nasal discharge and Denies neck pain Cardiovascular: Cardiovascular: Reports no additional cardiovascular complaints, Denies chest pain, Denies leg edema and Denies dyspnea Respiratory: Respiratory: Reports no additional respiratory complaints, Denies cough and Denies dyspnea Gastrointestinal: Gastrointestinal: Reports no additional gastrointestinal complaints, Denies abdominal pain, Denies diarrhea, Denies nausea and Denies vomiting Genitourinary: Genitourinary: Reports no additional female genitourinary complaints and Denies urinary incontinence Musculoskeletal: Musculoskeletal: Reports no additional musculoskeletal complaints, Denies back pain, Denies arthralgias, Denies joint swelling, Denies neck pain, Denies numbness and Denies tingling Integumentary/Breasts: Skin/Breast: Reports system reviewed and no additional complaints, except as docu, Reports furuncle, Reports swelling, Reports erythema and Denies rash Neurologic: Reports system reviewed and no additional complaints, except as documented, Denies Abnormal speech present, Denies dizziness, Denies headache(s), Denies numbness, Denies tingling and Denies weakness [facility] Past Medical History Attestation statement: The following information was validated with the patient. Source: old records reviewed and nursing notes reviewed Medical History Allergic rhinitis Allergic rhinitis Anxiety Asthma Asthma Bipolar 1 disorder, depressed Breast cancer Bronchial asthma Colitis COPD (chronic obstructive pulmonary disease) Cough Depression Diabetes type 2, uncontrolled Dyslipidemia Fibromyalgia Hyperparathyroidism Hypertension Hypothyroid Hypothyroid IDDM (insulin dependent diabetes mellitus) IDDM (insulin dependent diabetes mellitus) Infiltrating ductal carcinoma of left breast, stage 2 Insomnia Irritable bowel Osteoporosis Reactive airways dysfunction syndrome Restrictive airway disease Rheumatoid arthritis Seropositive rheumatoid arthritis T2DM (type 2 diabetes mellitus) Thyroid nodule Vitamin D deficiency Surgical History H/O: hysterectomy History of bunionectomy of both great toes History of colonoscopy History of esophagogastroduodenoscopy (EGD) History of lumpectomy of left breast History of pubovaginal sling History of tubal ligation Family History Family History Mother Diabetes HTN (hypertension) Uterus cancer Malignant tumor of head Breast cancer Father Diabetes HTN (hypertension) CVD (cardiovascular disease) Heart problem Maternal Aunt Breast cancer Brother Myocardial infarction S/P CABG x 4 Family/Other FH: mental illness Social History Social History Household Members: Family Household Members Other:: sister Housing: Apartment Do you presently have visiting nurse or other home services: Yes (sister=collection systems modeler) Alcohol intake: never Years Smoked: 46 Advance Directives: Yes Advance Directives on File: Yes Advance Directives Date on File: 03/09/21 service: No Current occupational status: disabled Physical Exam Vital Signs: Vital Signs: Last Vital Signs Temp 97.0 F 04/17/21 14:28 Pulse 120 H 04/17/21 14:28 Resp 17 04/17/21 14:28 BP 147/83 H 04/17/21 14:28 Pulse Ox 96 04/17/21 14:28 Body Mass Index 27.1 Const: General: cooperative, healthy appearing, comfortable and no acute distress Orientation/consciousness: patient oriented x3 Limitations: no limitations HENMT: Head: Yes normal to inspection Ears: hearing grossly normal bilaterally General nose exam: Normal external nose present Face and sinus: Yes normal facial exam Mouth: Normal oral and palatal mucosa present Throat: Yes posterior oropharynx normal Eyes: General: appearance normal, both eyes and all related structures Pupils: Equal, round and reactive pupils present Neck: Neck: Yes normal visual inspection Chest: Chest palpation & inspection: normal inspection of the chest Resp: Effort & Inspection: normal respiratory effort Auscultation: clear to auscultation bilaterally Cardio: Rate: regular rate Rhythm: regular rhythm Peripheral pulses: Peripheral pulses 2+ throughout GI: Inspection: Yes normal to inspection Palpation (GI): Soft to palpation and nontender Auscultation: normal bowel sounds : Other: To the right vulva there is a small area of swelling, fluctuance with pointing and tenderness Back/Spine/Pelvis: Thoracic/Lumbar Spine: thoracic and lumbar spine normal to inspection Skin: General skin exam: no rashes or lesions noted Neuro: General: patient oriented x3, no focal motor deficits and normal sensation to monofilament Cranial nerves: Yes Equal, round and reactive pupils present Cognition (Neuro): normal cognition Speech: No Abnormal speech present Gait exam (Neuro): Normal gait present Motor exam (neuro): 5/5 motor strength present throughout Extrem: General: Yes normal to inspection Course Course Course Narrative: Abscess to right vulva. See I and D note. No fever or systemic signs or symptoms concerning for infection. Will start on short course of antibiotics. Reviewed worrisome signs and symptoms and when to return to the emergency department. Comfortable discharge home. Procedures Abscess I/D Site: other (vulva) Side (if applicable): right Local Anesthetic: lidocaine 2% Amount of anesthesia used (mL): 2 Technique: incised with blade Amount of fluid expressed (mL): 2 Sent for culture/gram staining?: No Irrigation: No Packing used?: none MDM - Female Genitourinary Medical Records Attestation: I reviewed the patient's medical records. Lab Data Attestation: I reviewed the patient's lab results. Discharge Plan Discharge Clinical Impression: Vulvar abscess Patient Disposition: Home, Self-Care Instructions: Abscess (ED) Prescriptions: New cephalexin 500 mg capsule 500 mg PO BID Qty: 14 RF: 0 No Action linagliptin [Tradjenta] 5 mg tablet 5 mg PO DAILY Qty: 30 RF: 11 montelukast 10 mg tablet 10 mg PO BEDTIME Qty: 90 RF: 1 albuterol sulfate [Ventolin HFA] 90 mcg/actuation HFA aerosol inhaler 2 puff inhalation Q4H PRN (Reason: shortness of breath or wheezing) Qty: 8.5 RF: 2 ipratropium-albuterol 0.5 mg-3 mg(2.5 mg base)/3 mL solution for nebulization 3 ml inhalation Q6H PRN (Reason: wheezing) Qty: 180 RF: 2 fluticasone propion-salmeterol 230-21 mcg/actuation HFA aerosol inhaler 2 puff PO BID Qty: 8 RF: 3 prednisone 10 mg tablet 10 mg PO DAILY Qty: 30 RF: 2 leflunomide 20 mg tablet 20 mg PO DAILY Qty: 90 RF: 1 Enbrel SureClick 50 mg/mL (1 mL) pen injector 50 mg subcut QWEEK Qty: 4 RF: 3 (DME) FreeStyle Test Strip See Rx Instructions .ROUTE .MEDSUPPLY Qty: 200 RF: 11 hydroxychloroquine 200 mg tablet 200 mg PO DAILY Qty: 30 RF: 3 insulin aspart U-100 [Novolog Flexpen U-100 Insulin] 100 unit/mL (3 mL) insulin pen 10 unit subcut 5XD RF: 0 omeprazole 20 mg Capsule,Delayed Release(Dr/Ec) 20 mg PO DAILY@0630 Qty: 30 RF: 0 benzonatate 100 mg Capsule 100 mg PO TID PRN (Reason: Cough) Qty: 30 RF: 0 lithium carbonate 150 mg capsule 150 mg PO BID RF: 0 letrozole 2.5 mg tablet 2.5 mg PO DAILY RF: 0 trazodone 50 mg tablet 100 mg PO BEDTIME RF: 0 Tresiba FlexTouch U-100 100 unit/mL (3 mL) insulin pen 50 unit subcut DAILY RF: 0 (DME) pen needle, diabetic [Comfort EZ Pen [place]] 31 gauge x 5/16 needle See Rx Instructions .ROUTE .MEDSUPPLY Qty: 200 RF: 11 (DME) lancets [FreeStyle Lancets] 28 gauge misc See Rx Instructions .ROUTE .MEDSUPPLY Qty: 200 RF: 11 pregabalin 150 mg capsule 150 mg PO BEDTIME Qty: 30 RF: 5 pregabalin 75 mg capsule 75 mg PO BID Qty: 60 RF: 5 lisinopril 2.5 mg tablet 2.5 mg PO DAILY RF: 0 loteprednol etabonate 0.5 % drops,suspension 1 drp ophthalmic (eye) BID RF: 0 atorvastatin 40 mg tablet 40 mg PO BEDTIME RF: 0 cyclosporine 0.05 % dropperette 1 drp ophthalmic (eye) BID PRN (Reason: Dry Eyes) RF: 0 Referrals: Adela Gipson MD [Primary Care Provider] - 2 days Interventions: ED Discharge Assessment Last Done: 04/17/21 16:48 Discharge Date/Time: 04/17/21 16:48
[2021-04-17] MEDS: Lidocaine HCl 2 % MPF 5 ML VIAL SUBCUT (16:30)
== END 2021-04-17 16:48 | disposition home or self-care (01) ==
PROVIDERS: Emergency Provider Emergency Medicine Emergency Medical Services; PCP Internal Medicine
DX: N76.4 Abscess of vulva (principal); E11.9 Type 2 diabetes mellitus without complications; I10 Essential (primary) hypertension; E78.5 Hyperlipidemia, unspecified; M05.9 Rheumatoid arthritis with rheumatoid factor, unspecified; F41.9 Anxiety disorder, unspecified; F31.9 Bipolar disorder, unspecified; J44.9 Chronic obstructive pulmonary disease, unspecified; Z86.16 Personal history of COVID-19; Z85.3 Personal history of malignant neoplasm of breast; Z90.710 Acquired absence of both cervix and uterus; Z98.51 Tubal ligation status; Z79.899 Other long term (current) drug therapy; Z79.4 Long term (current) use of insulin; Z79.02 Long term (current) use of antithrombotics/antiplatelets
CPT/HCPCS: 56405; 99283; 99284

== ENCOUNTER → 2021-04-20 13:22 | Outpatient (BNVA) | payer MEDICARE, MEDICAID, SELFPAY | PROVIDERS: PCP Internal Medicine; Referring Provider Internal Medicine; Visit Provider Internal Medicine Gastroenterology | DX: K57.30 Diverticulosis of large intestine without perforation or abscess without bleeding (principal) | CPT/HCPCS: 99212 ==

== ENCOUNTER → 2021-05-04 13:39 | Outpatient (BNVA) | payer MEDICARE, MEDICAID, SELFPAY | PROVIDERS: PCP Internal Medicine; Visit Provider Internal Medicine | DX: J44.9 Chronic obstructive pulmonary disease, unspecified (principal); J45.909 Unspecified asthma, uncomplicated; R05 Cough; J68.3 Other acute and subacute respiratory conditions due to chemicals, gases, fumes and vapors; M81.0 Age-related osteoporosis without current pathological fracture | CPT/HCPCS: 99212 ==

== ENCOUNTER 2021-05-15 09:40 | Outpatient (REF) | payer MEDICARE, MEDICAID, SELFPAY ==
[2021-05-15 10:29] LABS: Blood Urea Nitrogen 10 mg/dL (9-16); Estimated Glomerular Filt Rate > 60
== END 2021-05-15 09:41 | disposition home or self-care (01) ==
LOC: HO.MDS 09:40
PROVIDERS: PCP Internal Medicine; Visit Provider Internal Medicine
DX: M81.0 Age-related osteoporosis without current pathological fracture (principal); C50.919 Malignant neoplasm of unspecified site of unspecified female breast
CPT/HCPCS: 36415; 82565; 84520; 96365; J3489

== ENCOUNTER → 2021-05-23 09:43 | Outpatient (REF) | payer OTHER, SELFPAY ==
--- NOTE | 2021-05-23 10:00 | ECG_ITS ---
Test Reason : COUGH Blood Pressure : / mmHG Vent. Rate : 102 BPM Atrial Rate : 102 BPM P-R Int : 130 ms QRS Dur : 092 ms QT Int : 344 ms P-R-T Axes : 075 077 064 degrees QTc Int : 448 ms . Sinus tachycardia Normal EKG When compared with ECG of 09-MAR-2021 12:53, No significant change was found Referred By: Marry Baum Electronically Signed By:MICHELL MONTES
== END ==
LOC: HO.CARD 09:43
PROVIDERS: PCP Internal Medicine; Visit Provider Internal Medicine
DX: R05 Cough (principal); J44.9 Chronic obstructive pulmonary disease, unspecified
CPT/HCPCS: 93005

== ENCOUNTER → 2021-05-24 08:50 | Outpatient (BNVA) | payer OTHER, SELFPAY | PROVIDERS: PCP Internal Medicine; Visit Provider Nurse Practitioner Gerontology | DX: E11.65 Type 2 diabetes mellitus with hyperglycemia (principal); E11.319 Type 2 diabetes mellitus with unspecified diabetic retinopathy without macular edema; E78.5 Hyperlipidemia, unspecified; M06.9 Rheumatoid arthritis, unspecified; E21.3 Hyperparathyroidism, unspecified; E04.1 Nontoxic single thyroid nodule; M81.0 Age-related osteoporosis without current pathological fracture; Z85.3 Personal history of malignant neoplasm of breast; J30.81 Allergic rhinitis due to animal (cat) (dog) hair and dander; Z88.8 Allergy status to other drugs, medicaments and biological substances; Z91.013 Allergy to seafood; Z79.4 Long term (current) use of insulin; Z79.52 Long term (current) use of systemic steroids; Z79.899 Other long term (current) drug therapy | CPT/HCPCS: 82947 ==

== ENCOUNTER 2021-06-05 13:43 | Emergency (ER) | payer OTHER, MEDICARE, MEDICAID, SELFPAY ==
--- NOTE | ~2021-06-05 | XR_ITS ---
EXAMINATION: X-ray left shoulder and left wrist/hand. CLINICAL INFORMATION: Status post fall with pain to the entire right upper extremity. COMPARISON: None TECHNIQUE: 3 views left shoulder and 4 views left hand/wrist. FINDINGS: Left hand/wrist: There is no visible acute fracture, dislocation or subluxation seen. No visible acute fracture, dislocation or subluxation seen. There is mild loss of PIP and DIP joint space without bony erosive changes. No periarticular spurring. No osteopenia Left shoulder: There is no visible acute fracture, dislocation or subluxation. The lateral joint space and AC joint space is normal. Comment XR/XR hand wrist LT IMPRESSION: Unremarkable left hand and wrist exam. Unremarkable left shoulder exam.
--- NOTE | ~2021-06-05 | XR_ITS ---
EXAMINATION: XR FOREARM, LEFT CLINICAL INFORMATION: Fall COMPARISON: None TECHNIQUE: AP and lateral views of the left forearm were obtained. FINDINGS: The bones are osteopenic. There is a slightly impacted radial head fracture. There is mild arthritis at the first CORRECTION and trapezoid trapezium scaphoid joints. Soft tissues are unremarkable. XR/XR forearm LT 2V IMPRESSION: Radial head fracture.
--- NOTE | ~2021-06-05 | XR_ITS ---
EXAMINATION: X-ray left shoulder and left wrist/hand. CLINICAL INFORMATION: Status post fall with pain to the entire right upper extremity. COMPARISON: None TECHNIQUE: 3 views left shoulder and 4 views left hand/wrist. FINDINGS: Left hand/wrist: There is no visible acute fracture, dislocation or subluxation seen. No visible acute fracture, dislocation or subluxation seen. There is mild loss of PIP and DIP joint space without bony erosive changes. No periarticular spurring. No osteopenia Left shoulder: There is no visible acute fracture, dislocation or subluxation. The lateral joint space and AC joint space is normal. Comment XR/XR shoulder LT min 2V IMPRESSION: Unremarkable left hand and wrist exam. Unremarkable left shoulder exam.
[2021-06-05 14:12] VITALS: BP 144/94; PULSE 120; RESP 18; TEMP 36.9; O2SAT 96; BMI 27.1
[2021-06-05] MEDS: oxyCODONE HCl Immed Release 5 MG TABLET PO (15:27)
[2021-06-05] MEDS: Acetaminophen 325 MG TABLET 975 MG PO (15:27)
--- NOTE | 2021-06-05 15:49 | ED.FALL ---
HPI - Fall General Chief Complaint: Extremity Problem Stated Complaint: ARM INJ FELL Time Seen by Provider: 06/05/21 14:51 Source: patient Mode of arrival: ambulatory Limitations: no limitations History of Present Illness MD complaint: fall Onset (ago): minute(s) (Prior to arrival) Fall from: standing Fall witnessed: no Place fall occurred: home Loss of consciousness: none Prolonged down time: no Symptoms prior to fall: none Context: tripped/slipped Location of injury - extremities: left: shoulder, arm, elbow, forearm and hand Severity: severe Severity scale (1-10): >10 Quality: aching Associated symptoms (after fall): denies Related Data Home Medications Medication Instructions Recorded Confirmed letrozole 2.5 mg tablet 2.5 mg PO DAILY 08/24/20 05/24/21 atorvastatin 40 mg tablet 40 mg PO BEDTIME 09/14/20 05/24/21 trazodone 50 mg tablet 100 mg PO BEDTIME tab 11/23/20 05/24/21 cyclosporine 0.05 % eye drops in a 1 drp OPHTHALMIC (EYE) BID PRN 04/05/21 05/24/21 dropperette loteprednol etabonate 0.5 % eye 1 drp OPHTHALMIC (EYE) BID 04/05/21 05/24/21 drops,suspension lamotrigine 25 mg tablet 25 mg PO DAILY tab 05/09/21 05/24/21 hydroxychloroquine 200 mg tablet 200 mg PO DAILY 05/24/21 05/24/21 tizanidine 2 mg tablet 2 mg PO BEDTIME PRN 05/24/21 05/24/21 Previous Rx's Medication Instructions Recorded montelukast 10 mg tablet 10 mg PO BEDTIME #90 tab 11/28/20 albuterol sulfate 90 mcg/actuation 2 puff INHALATION Q4H PRN #8.5 g 12/02/20 aerosol inhaler pregabalin 150 mg capsule 150 mg PO BEDTIME #30 cap 12/16/20 pregabalin 75 mg capsule 75 mg PO BID #60 cap 12/16/20 benzonatate 100 mg PO TID PRN #30 cap 03/12/21 omeprazole 20 mg PO DAILY@0630 #30 cap 03/12/21 lancets 28 gauge #200 ea 03/21/21 pen needle, diabetic 31 gauge x #200 ea 03/21/2104/02 blood sugar diagnostic #200 ea 04/06/21 psyllium husk 2.6 gram/4.1 gram 1 tbsp PO DAILY 30 Days #480 g 04/20/21 oral powder azithromycin 250 mg tablet 250 mg PO DAILY 30 Days #30 tab 05/04/21 prednisone 10 mg tablet 10 mg PO DAILY #30 tab 05/04/21 abatacept 125 mg/mL subcutaneous 125 mg SUBCUT QWEEK #4 ml 05/05/21 auto-injector ipratropium 0.5 mg-albuterol 3 mg 3 ml INHALATION Q6H PRN #180 ml 05/12/21 (2.5 mg base)/3 mL nebulization soln Advair HFA 230 mcg-21 2 puff PO BID #12 g NS 05/15/21 mcg/actuation aerosol inhaler dulaglutide 0.75 mg/0.5 mL 0.75 mg SUBCUT QWEEK #6 ml 05/24/21 subcutaneous pen injector insulin aspart U-100 100 unit/mL 4 unit SUBCUT TIDWMEAL #15 ml 05/24/21 (3 mL) subcutaneous pen insulin degludec 100 unit/mL (3 46 unit SUBCUT DAILY 30 Days #15 ml 05/24/21 mL) subcutaneous pen acetaminophen [Tylenol Extra 1,000 mg PO QID PRN #14 tab 06/05/21 Strength] ibuprofen 800 mg PO Q8H PRN #14 tab 06/05/21 oxycodone 5 mg PO BID PRN #10 tab 06/05/21 Allergies Allergy/AdvReac Type Severity Reaction Status Date / Time dog dander [DOGS] Allergy Intermediate Respiratory Verified 05/24/21 09:10 distress ibuprofen [Ibuprofen] Allergy Intermediate STOMACH Verified 05/24/21 09:10 UPSET, abdominal pain, nausea and vomiting prednisone Allergy Intermediate hallucinations, Verified 05/24/21 09:10 higher than 20 shellfish derived Allergy Intermediate Hives Verified 05/24/21 09:10 etanercept [From Enbrel] AdvReac Intermediate Facial Verified 05/24/21 09:10 Swelling metformin AdvReac Intermediate diarrhea Verified 05/24/21 09:10 metronidazole [From FLAGYL] AdvReac Intermediate DIARRHEA Verified 05/24/21 09:10 Review of Systems Review of Systems: Constitutional : No changes in activity, No lethargy, No recent prior head injury, No agitation, No increased fussiness ENT/Mouth : No Ear Pain, No Nasal discharge/drainage Eyes: No Eye Pain, No Swelling, No Redness, No Foreign Body, No Vision Changes Cardiovascular : No Chest Pain, No SOB Respiratory : No Cough Gastrointestinal : No Nausea, No Vomiting, No abdominal Pain Genitourinary : No Dysuria, No Urinary Frequency, No Urinary Incontinence, No Urgency, No Flank Pain Musculoskeletal : + joint pain, No neck stiffness, No back pain/injury Skin : No lacerations Neuro : No unsteady gait, No Paresthesias, No Loss of Consciousness, No altered mental status, No Headache Yes all other systems are reviewed and are negative [facility] Past Medical History Attestation statement: The following information was validated with the patient. Medical History Allergic rhinitis Allergic rhinitis Anxiety Asthma Asthma Bipolar 1 disorder, depressed Breast cancer Bronchial asthma Colitis COPD (chronic obstructive pulmonary disease) Cough Depression Diabetes type 2, uncontrolled Dyslipidemia Fibromyalgia Hyperlipidemia LDL goal <100 Hyperparathyroidism Hypertension Hypothyroid Hypothyroid IDDM (insulin dependent diabetes mellitus) IDDM (insulin dependent diabetes mellitus) Infiltrating ductal carcinoma of left breast, stage 2 Insomnia Irritable bowel Osteoporosis Reactive airways dysfunction syndrome Restrictive airway disease Rheumatoid arthritis Seropositive rheumatoid arthritis T2DM (type 2 diabetes mellitus) Thyroid nodule Vitamin D deficiency Surgical History H/O: hysterectomy History of bunionectomy of both great toes History of colonoscopy History of esophagogastroduodenoscopy (EGD) History of lumpectomy of left breast History of pubovaginal sling History of tubal ligation Family History Family History Mother Diabetes HTN (hypertension) Uterus cancer Malignant tumor of head Breast cancer Father Diabetes HTN (hypertension) CVD (cardiovascular disease) Heart problem Maternal Aunt Breast cancer Brother Myocardial infarction S/P CABG x 4 Family/Other FH: mental illness Other Mental health disorder Social History Social History Household Members: Family Household Members Other:: sister Housing: Apartment Do you presently have visiting nurse or other home services: Yes (sister=mule tender) Alcohol intake: never Patient Tobacco Use Status: Current everyday Tobacco user Cigarettes Per Day: 2 Years Smoked: 46 Advance Directives: No Advance Directives Information Provided: No Advance Directives Date on File: 03/09/21 Patient : No service: No Current occupational status: disabled Physical Exam Vital Signs: Vital Signs: Last Vital Signs Temp 98.4 F 06/05/21 14:12 Pulse 120 H 06/05/21 14:12 Resp 18 06/05/21 14:12 BP 144/94 H 06/05/21 14:12 Pulse Ox 96 06/05/21 14:12 Body Mass Index 27.1 vital signs have been reviewed as normal and appeared to be correct. Blood pressure hypertensive 144/94. Heart rate tachycardic at 120. Respiration rate normal. Temperature normal. Oxygen saturation normal. Appearance: Alert. Oriented X3. No acute distress. Head: Normal external exam. Normocephalic. Atraumatic. No Raya signs noted. No raccoon eyes noted Eyes: PERRLA. EOMI. Conjunctiva and sclera normal. Eyelids normal. ENT:Pharynx normal. Uvula midline. Moist mucous membranes. Neck: Normal inspection. Neck supple. FROM. No adenopathy. No meningeal signs. CVS: Normal heart rate and rhythm. Heart sound normal. Pulses normal throughout. No murmurs/rales/gallops. Respiratory: No respiratory distress. Painless inspiration. Breath sounds normal. No wheezes/rales/rhonchi noted. Chest nontender. No accessory muscle usage noted or decreased air movement noted. Back: Full range of motion noted. No rashes/lesion/induration/fluctuance or signs of infection noted. Skin: Skin warm and dry. Normal skin color. Normal skin turgor. No rashes/lesions/lacerations noted. Extremities: Patient with tenderness to palpation to left hand/wrist/forearm/elbow/upper arm/shoulder she has limited range of motion of the right elbow/wrist otherwise has full range of motion all other joints. No obvious deformities or ligamentous laxity noted. No signs of infection or rashes noted. Otherwise all Extremities exhibit normal range of motion and nontender. Neuro: Oriented X 3. No motor deficit. No sensory deficit. Reflexes normal. Normal steady gait. No focal neuro deficits noted. Vascular: + radial pulses/+ 2 distal pedal pulses/+2 dorsalis pedis b/l. Normal cap refill. No cyanosis noted to upper extremity nails and lower extremity toes nails. Course Course Course Narrative: 60-year-old female who denies being on any blood thinners presenting to the ED with complaints of left hand/wrist/forearm/elbow/upper arm/shoulder pain after she had a mechanical fall at her house prior to arrival where she slipped on water and fell onto her left arm. No obvious deformities or ligamentous laxity is noted. She has limited range of motion of left hand/wrist/left elbow joints. Obtained and revealed radial head fracture therefore consult to Orthopedics and they recommended a posterior long-arm splint and a sling for comfort. I am also x-rayed the patient's left hand/wrist and left shoulder if negative will DC home with symptomatic treatment instructions to return if any new or worsening symptoms to follow up with Orthopedics within the next 7-14 days. Patient understands agrees with this plan. Procedures Orthopedic Splinting/Casting Injury #1: Side: left Upper Extremity Injury Location: elbow Upper Extremity Immobilizer: sling/shoulder immobilizer and posterior splint MDM - Fall Medical Records Attestation: I reviewed the patient's medical records. Imaging Data Left forearm x-ray: Attestation: I personally reviewed and interpreted this imaging study as follows: Radiologist's impression: FINDINGS: The bones are osteopenic. There is a slightly impacted radial head fracture. There is mild arthritis at the first NURSING HOME and trapezoid trapezium scaphoid joints. Soft tissues are unremarkable. XR/XR forearm LT 2V IMPRESSION: Radial head fracture. Discharge Plan Discharge Clinical Impression: Fall, Closed fracture of head of left radius, Sprain and strain of left hand, Left wrist sprain, Sprain of left shoulder Patient Disposition: Home, Self-Care Instructions: Elbow Fracture (ED), Splint Care (ED) Prescriptions: New ibuprofen 800 mg tablet 800 mg PO Q8H PRN (Reason: pain) Qty: 14 RF: 0 acetaminophen [Tylenol Extra Strength] 500 mg tablet 1,000 mg PO QID PRN (Reason: fever or pain) Qty: 14 RF: 0 oxycodone 5 mg tablet 5 mg PO BID PRN (Reason: pain) Qty: 10 RF: 0 No Action montelukast 10 mg tablet 10 mg PO BEDTIME Qty: 90 RF: 1 albuterol sulfate [Ventolin HFA] 90 mcg/actuation HFA aerosol inhaler 2 puff inhalation Q4H PRN (Reason: shortness of breath or wheezing) Qty: 8.5 RF: 2 (DME) FreeStyle Test Strip See Rx Instructions .ROUTE .MEDSUPPLY Qty: 200 RF: 11 prednisone 10 mg tablet 10 mg PO DAILY Qty: 30 RF: 2 Orencia ClickJect 125 mg/mL auto-injector 125 mg subcut QWEEK Qty: 4 RF: 2 ipratropium-albuterol 0.5 mg-3 mg(2.5 mg base)/3 mL solution for nebulization 3 ml inhalation Q6H PRN (Reason: wheezing) Qty: 180 RF: 2 Advair HFA 230-21 mcg/actuation HFA aerosol inhaler 2 puff PO BID Qty: 12 RF: 3 omeprazole 20 mg Capsule,Delayed Release(Dr/Ec) 20 mg PO DAILY@0630 Qty: 30 RF: 0 benzonatate 100 mg Capsule 100 mg PO TID PRN (Reason: Cough) Qty: 30 RF: 0 letrozole 2.5 mg tablet 2.5 mg PO DAILY RF: 0 trazodone 50 mg tablet 100 mg PO BEDTIME RF: 0 lamotrigine 25 mg tablet 25 mg PO DAILY RF: 0 (DME) pen needle, diabetic [Comfort EZ Pen [place]] 31 gauge x 5/16 needle See Rx Instructions .ROUTE .MEDSUPPLY Qty: 200 RF: 11 (DME) lancets [FreeStyle Lancets] 28 gauge misc See Rx Instructions .ROUTE .MEDSUPPLY Qty: 200 RF: 11 pregabalin 150 mg capsule 150 mg PO BEDTIME Qty: 30 RF: 5 pregabalin 75 mg capsule 75 mg PO BID Qty: 60 RF: 5 azithromycin 250 mg tablet 250 mg PO DAILY 30 Days Qty: 30 RF: 1 loteprednol etabonate 0.5 % drops,suspension 1 drp ophthalmic (eye) BID RF: 0 psyllium husk 2.6 gram/4.1 gram powder 1 tbsp PO DAILY 30 Days Qty: 480 RF: 2 tizanidine 2 mg tablet 2 mg PO BEDTIME PRN (Reason: muscle spasm) RF: 0 hydroxychloroquine 200 mg tablet 200 mg PO DAILY RF: 0 Tresiba FlexTouch U-100 100 unit/mL (3 mL) insulin pen 46 unit subcut DAILY 30 Days Qty: 15 RF: 3 insulin aspart U-100 [Novolog Flexpen U-100 Insulin] 100 unit/mL (3 mL) insulin pen 4 unit subcut TIDWMEAL Qty: 15 RF: 2 Trulicity 0.75 mg/0.5 mL pen injector 0.75 mg subcut QWEEK Qty: 6 RF: 1 atorvastatin 40 mg tablet 40 mg PO BEDTIME RF: 0 cyclosporine 0.05 % dropperette 1 drp ophthalmic (eye) BID PRN (Reason: Dry Eyes) RF: 0 Referrals: Yayo Westfall MD [Physician] - 1 week Stand Alone Forms: Work/School Release Print Language: Andorran
== END 2021-06-05 16:15 | disposition home or self-care (01) ==
PROVIDERS: Emergency Provider Emergency Medicine; PCP Internal Medicine
DX: S52.122A Displaced fracture of head of left radius, initial encounter for closed fracture (principal); S63.92XA Sprain of unspecified part of left wrist and hand, initial encounter; S66.912A Strain of unspecified muscle, fascia and tendon at wrist and hand level, left hand, initial encounter; S63.502A Unspecified sprain of left wrist, initial encounter; S43.402A Unspecified sprain of left shoulder joint, initial encounter; E11.9 Type 2 diabetes mellitus without complications; I10 Essential (primary) hypertension; J44.9 Chronic obstructive pulmonary disease, unspecified; Z79.4 Long term (current) use of insulin; Z79.899 Other long term (current) drug therapy; W01.0XXA Fall on same level from slipping, tripping and stumbling without subsequent striking against object, initial encounter; Y93.9 Activity, unspecified; Y92.009 Unspecified place in unspecified non-institutional (private) residence as the place of occurrence of the external cause; Y99.9 Unspecified external cause status
CPT/HCPCS: 29105; 73030; 73090; 73110; 73130; 99283

== ENCOUNTER 2021-06-06 11:11 | Emergency (ER) | payer OTHER, MEDICAID, SELFPAY ==
[2021-06-06 11:13] VITALS: BP 167/96; PULSE 109; RESP 16; TEMP 36.4; O2SAT 97; BMI 64.5
--- NOTE | 2021-06-06 11:39 | ED.EXTPRO ---
HPI - Extremity Problem General Chief complaint: Extremity Problem Stated complaint: confirmed elbow fracture/pain Time Seen by Provider: 06/06/21 11:27 Source: patient and EMS Mode of arrival: EMS History of Present Illness HPI Narrative: 61-year-old female with a past medical history of anxiety , asthma , bipolar, COPD, depression, DM, HLD, fibromyalgia, HTN, IBS, radial head fracture s/p mechanical fall evaluated in our emergency department yesterday placed in posterior long-arm splint presenting to the ED complaining continued/unremitting pain to LUE since incident with mild tingling in fingers. Denies new or recent injury since original, numbness, fever, chills Related Data Home Medications Medication Instructions Recorded Confirmed letrozole 2.5 mg tablet 2.5 mg PO DAILY 08/24/20 05/24/21 atorvastatin 40 mg tablet 40 mg PO BEDTIME 09/14/20 05/24/21 trazodone 50 mg tablet 100 mg PO BEDTIME tab 11/23/20 05/24/21 cyclosporine 0.05 % eye drops in a 1 drp OPHTHALMIC (EYE) BID PRN 04/05/21 05/24/21 dropperette loteprednol etabonate 0.5 % eye 1 drp OPHTHALMIC (EYE) BID 04/05/21 05/24/21 drops,suspension lamotrigine 25 mg tablet 25 mg PO DAILY tab 05/09/21 05/24/21 hydroxychloroquine 200 mg tablet 200 mg PO DAILY 05/24/21 05/24/21 tizanidine 2 mg tablet 2 mg PO BEDTIME PRN 05/24/21 05/24/21 Previous Rx's Medication Instructions Recorded montelukast 10 mg tablet 10 mg PO BEDTIME #90 tab 11/28/20 albuterol sulfate 90 mcg/actuation 2 puff INHALATION Q4H PRN #8.5 g 12/02/20 aerosol inhaler pregabalin 150 mg capsule 150 mg PO BEDTIME #30 cap 12/16/20 pregabalin 75 mg capsule 75 mg PO BID #60 cap 12/16/20 benzonatate 100 mg PO TID PRN #30 cap 03/12/21 omeprazole 20 mg PO DAILY@0630 #30 cap 03/12/21 lancets 28 gauge #200 ea 03/21/21 pen needle, diabetic 31 gauge x #200 ea 03/21/2104/02 blood sugar diagnostic #200 ea 04/06/21 psyllium husk 2.6 gram/4.1 gram 1 tbsp PO DAILY 30 Days #480 g 04/20/21 oral powder azithromycin 250 mg tablet 250 mg PO DAILY 30 Days #30 tab 05/04/21 prednisone 10 mg tablet 10 mg PO DAILY #30 tab 05/04/21 abatacept 125 mg/mL subcutaneous 125 mg SUBCUT QWEEK #4 ml 05/05/21 auto-injector ipratropium 0.5 mg-albuterol 3 mg 3 ml INHALATION Q6H PRN #180 ml 05/12/21 (2.5 mg base)/3 mL nebulization soln Advair HFA 230 mcg-21 2 puff PO BID #12 g NS 05/15/21 mcg/actuation aerosol inhaler dulaglutide 0.75 mg/0.5 mL 0.75 mg SUBCUT QWEEK #6 ml 05/24/21 subcutaneous pen injector insulin aspart U-100 100 unit/mL 4 unit SUBCUT TIDWMEAL #15 ml 05/24/21 (3 mL) subcutaneous pen insulin degludec 100 unit/mL (3 46 unit SUBCUT DAILY 30 Days #15 ml 05/24/21 mL) subcutaneous pen acetaminophen [Tylenol Extra 1,000 mg PO QID PRN #14 tab 06/05/21 Strength] ibuprofen 800 mg PO Q8H PRN #14 tab 06/05/21 oxycodone 5 mg PO BID PRN #10 tab 06/05/21 Allergies Allergy/AdvReac Type Severity Reaction Status Date / Time dog dander [DOGS] Allergy Intermediate Respiratory Verified 05/24/21 09:10 distress ibuprofen [Ibuprofen] Allergy Intermediate STOMACH Verified 05/24/21 09:10 UPSET, abdominal pain, nausea and vomiting prednisone Allergy Intermediate hallucinations, Verified 05/24/21 09:10 higher than 20 shellfish derived Allergy Intermediate Hives Verified 05/24/21 09:10 etanercept [From Enbrel] AdvReac Intermediate Facial Verified 05/24/21 09:10 Swelling metformin AdvReac Intermediate diarrhea Verified 05/24/21 09:10 metronidazole [From FLAGYL] AdvReac Intermediate DIARRHEA Verified 05/24/21 09:10 Review of Systems Review of Systems: Constitutional: No Fever, No Chills, No Fatigue, No Malaise Cardiovascular: No Chest Pain, No SOB Respiratory: No Cough, No Dyspnea Gastrointestinal: No Nausea, No Vomiting Musculoskeletal: + joint pain, No Myalgias, + Joint Swelling Skin: No Skin Lesions, No rash Neuro: No Weakness, No Numbness, + Paresthesias Yes all other systems are reviewed and are negative Neurologic: Denies Sensory deficit (Neuro) [facility] Past Medical History Attestation statement: The following information was validated with the patient. Medical History Allergic rhinitis Allergic rhinitis Anxiety Asthma Asthma Bipolar 1 disorder, depressed Breast cancer Bronchial asthma Colitis COPD (chronic obstructive pulmonary disease) Cough Depression Diabetes type 2, uncontrolled Dyslipidemia Fibromyalgia Hyperlipidemia LDL goal <100 Hyperparathyroidism Hypertension Hypothyroid Hypothyroid IDDM (insulin dependent diabetes mellitus) IDDM (insulin dependent diabetes mellitus) Infiltrating ductal carcinoma of left breast, stage 2 Insomnia Irritable bowel Osteoporosis Reactive airways dysfunction syndrome Restrictive airway disease Rheumatoid arthritis Seropositive rheumatoid arthritis T2DM (type 2 diabetes mellitus) Thyroid nodule Vitamin D deficiency Surgical History H/O: hysterectomy History of bunionectomy of both great toes History of colonoscopy History of esophagogastroduodenoscopy (EGD) History of lumpectomy of left breast History of pubovaginal sling History of tubal ligation Family History Family History Mother Diabetes HTN (hypertension) Uterus cancer Malignant tumor of head Breast cancer Father Diabetes HTN (hypertension) CVD (cardiovascular disease) Heart problem Maternal Aunt Breast cancer Brother Myocardial infarction S/P CABG x 4 Family/Other FH: mental illness Other Mental health disorder Social History Social History Household Members: Family Household Members Other:: sister Housing: Apartment Do you presently have visiting nurse or other home services: Yes (sister=investment analyst) Alcohol intake: never Patient Tobacco Use Status: Current everyday Tobacco user Cigarettes Per Day: 2 Years Smoked: 46 Advance Directives: Yes Advance Directives on File: Yes Advance Directives Date on File: 03/09/21 service: No Current occupational status: disabled Physical Exam Vital Signs: Vital Signs: Last Vital Signs Temp 97.5 F 06/06/21 11:13 Pulse 109 H 06/06/21 11:13 Resp 16 06/06/21 11:13 BP 167/96 H 06/06/21 11:13 Pulse Ox 97 06/06/21 11:13 Body Mass Index 64.5 Const: Other: Tearful on exam General: cooperative and healthy appearing Orientation/consciousness: patient oriented x3 Limitations: no limitations HENMT: Head: Yes normal to inspection Ears: hearing grossly normal bilaterally General nose exam: Normal external nose present Face and sinus: Yes normal facial exam Eyes: General: appearance normal, both eyes and all related structures EOM: EOMs intact bilaterally Neck: Neck: Yes normal visual inspection Resp: Effort & Inspection: normal respiratory effort and no respiratory distress Cardio: Rate: regular rate Peripheral pulses: radial pulses present Skin: Rashes: no rashes Wounds: no wounds Neuro: General: patient oriented x3 and tone normal Gait exam (Neuro): Normal gait present Sensory Exam: No Sensory deficit (Neuro) Extrem: Other: Left fingers with mild swelling. ROM of digits intact. NV intact distally. Left wrist/forearm/elbow with limited ROM secondary to pain. Splint was originally intact, removed, compartments are soft, no ecchymosis/evidence of cellulitis General: Yes normal to inspection Course Course Course Narrative: -posterior splint reapplied. Patient reports symptomatic improvement, appears more comfortable, full range of motion of fingers intact, reports she has follow-up with orthopedics tomorrow, worrisome signs and symptoms discussed, she verbalized understanding feel safe for discharge home MDM - Extremity (Nontraumatic) MDM Narrative Medical decision making narrative: 61-year-old female with a past medical history of anxiety , asthma , bipolar, COPD, depression, DM, HLD, fibromyalgia, HTN, IBS, radial head fracture s/p mechanical fall evaluated in our emergency department yesterday placed in posterior long-arm splint presenting to the ED complaining continued/unremitting pain to LUE since incident with mild tingling in fingers. On exam tachycardic, in pain, tearful, posterior long-arm splint removed, limited ROM to LUE secondary to pain. Neurovascularly intact distally, sensation intact to light touch. Compartments are soft/no evidence of compartment syndrome. Will give opiate pain medication and reapply a new splint Discharge Plan Discharge Clinical Impression: Closed fracture of radial head Patient Disposition: Home, Self-Care Instructions: Elbow Fracture (ED) Additional Instructions: Follow-up tomorrow with orthopedics as scheduled Keep splint on, dry, and clean Wear sling at home for comfort Continue taking pain medications Ice your elbow If pain persists or worsens, becomes unbearable, you are unable to move her fingers, they become numb, or swollen please return to the ED again Prescriptions: No Action montelukast 10 mg tablet 10 mg PO BEDTIME Qty: 90 RF: 1 albuterol sulfate [Ventolin HFA] 90 mcg/actuation HFA aerosol inhaler 2 puff inhalation Q4H PRN (Reason: shortness of breath or wheezing) Qty: 8.5 RF: 2 (DME) FreeStyle Test Strip See Rx Instructions .ROUTE .MEDSUPPLY Qty: 200 RF: 11 prednisone 10 mg tablet 10 mg PO DAILY Qty: 30 RF: 2 Orencia ClickJect 125 mg/mL auto-injector 125 mg subcut QWEEK Qty: 4 RF: 2 ipratropium-albuterol 0.5 mg-3 mg(2.5 mg base)/3 mL solution for nebulization 3 ml inhalation Q6H PRN (Reason: wheezing) Qty: 180 RF: 2 Advair HFA 230-21 mcg/actuation HFA aerosol inhaler 2 puff PO BID Qty: 12 RF: 3 omeprazole 20 mg Capsule,Delayed Release(Dr/Ec) 20 mg PO DAILY@0630 Qty: 30 RF: 0 benzonatate 100 mg Capsule 100 mg PO TID PRN (Reason: Cough) Qty: 30 RF: 0 ibuprofen 800 mg tablet 800 mg PO Q8H PRN (Reason: pain) Qty: 14 RF: 0 acetaminophen [Tylenol Extra Strength] 500 mg tablet 1,000 mg PO QID PRN (Reason: fever or pain) Qty: 14 RF: 0 oxycodone 5 mg tablet 5 mg PO BID PRN (Reason: pain) Qty: 10 RF: 0 letrozole 2.5 mg tablet 2.5 mg PO DAILY RF: 0 trazodone 50 mg tablet 100 mg PO BEDTIME RF: 0 lamotrigine 25 mg tablet 25 mg PO DAILY RF: 0 (DME) pen needle, diabetic [Comfort EZ Pen [place]] 31 gauge x 5/16 needle See Rx Instructions .ROUTE .MEDSUPPLY Qty: 200 RF: 11 (DME) lancets [FreeStyle Lancets] 28 gauge misc See Rx Instructions .ROUTE .MEDSUPPLY Qty: 200 RF: 11 pregabalin 150 mg capsule 150 mg PO BEDTIME Qty: 30 RF: 5 pregabalin 75 mg capsule 75 mg PO BID Qty: 60 RF: 5 azithromycin 250 mg tablet 250 mg PO DAILY 30 Days Qty: 30 RF: 1 loteprednol etabonate 0.5 % drops,suspension 1 drp ophthalmic (eye) BID RF: 0 psyllium husk 2.6 gram/4.1 gram powder 1 tbsp PO DAILY 30 Days Qty: 480 RF: 2 tizanidine 2 mg tablet 2 mg PO BEDTIME PRN (Reason: muscle spasm) RF: 0 hydroxychloroquine 200 mg tablet 200 mg PO DAILY RF: 0 Tresiba FlexTouch U-100 100 unit/mL (3 mL) insulin pen 46 unit subcut DAILY 30 Days Qty: 15 RF: 3 insulin aspart U-100 [Novolog Flexpen U-100 Insulin] 100 unit/mL (3 mL) insulin pen 4 unit subcut TIDWMEAL Qty: 15 RF: 2 Trulicity 0.75 mg/0.5 mL pen injector 0.75 mg subcut QWEEK Qty: 6 RF: 1 atorvastatin 40 mg tablet 40 mg PO BEDTIME RF: 0 cyclosporine 0.05 % dropperette 1 drp ophthalmic (eye) BID PRN (Reason: Dry Eyes) RF: 0 Referrals: Mag Kim PA-C [[facility] [employer] [facility]] - 1 day
[2021-06-06] MEDS: traMADoL HCL 50 MG TABLET PO (11:45)
[2021-06-06] MEDS: Ketorolac Tromethamine 15 MG/ML VIAL IM ×2 (11:46)
[2021-06-06 12:24] VITALS: BP 148/90; PULSE 95; RESP 18; O2SAT 96
== END 2021-06-06 12:31 | disposition home or self-care (01) ==
PROVIDERS: Emergency Provider Emergency Medicine; PCP Internal Medicine
DX: S52.121D Displaced fracture of head of right radius, subsequent encounter for closed fracture with routine healing (principal); W19.XXXD Unspecified fall, subsequent encounter; E11.9 Type 2 diabetes mellitus without complications; I10 Essential (primary) hypertension; J44.9 Chronic obstructive pulmonary disease, unspecified; Z79.4 Long term (current) use of insulin; Z79.899 Other long term (current) drug therapy
CPT/HCPCS: 29105; 96372; 99284; J1885

== ENCOUNTER → 2021-06-07 14:28 | Outpatient (BNVA) | payer OTHER, MEDICAID, SELFPAY | PROVIDERS: PCP Internal Medicine; Visit Provider Orthopaedic Surgery ==

== ENCOUNTER → 2021-06-16 13:33 | Outpatient (BNVA) | payer OTHER, MEDICAID, SELFPAY | PROVIDERS: PCP Internal Medicine; Visit Provider Student in an Organized Health Care Education/Training Program ==

== ENCOUNTER 2021-06-21 06:13 | Outpatient (REF) | payer OTHER, MEDICAID, SELFPAY ==
--- NOTE | ~2021-06-21 | XR_ITS ---
EXAMINATION: XR ELBOW, LEFT CLINICAL INFORMATION: Pain left elbow COMPARISON: None TECHNIQUE: AP, lateral, and oblique views of the left elbow. FINDINGS: The bones and soft tissues are normal. No fracture or joint effusion. Alignment is anatomic. Joint spaces are maintained. XR/XR elbow LT min 3V IMPRESSION: Unremarkable left elbow exam.
== END 2021-06-21 06:14 | disposition home or self-care (01) ==
LOC: HO.HOSX 06:13
PROVIDERS: Visit Provider Physician Assistant
DX: S52.122D Displaced fracture of head of left radius, subsequent encounter for closed fracture with routine healing (principal)
CPT/HCPCS: 73080

== ENCOUNTER 2021-06-28 11:50 | Emergency (ER) | payer OTHER, MEDICARE, MEDICAID, SELFPAY ==
[2021-06-28 12:00] VITALS: BP 134/86; PULSE 115; RESP 22; TEMP 37.2; O2SAT 96; BMI 26.9
[2021-06-28 13:34] LABS: OBS Int Ctl Valid YES; OBS1 POSITIVE (NEGATIVE)
[2021-06-28 14:41] LABS: MANUAL DIFF FLAG NO
[2021-06-28 14:43] LABS: Basophils Percent Auto 0.3 % (0-2); Eosinophils Absolute Auto 0.1 X10*3/uL (0.0-0.4); Eosinophils Percent Auto 0.6 % (0-4); Hematocrit 43.8 % (37-47); Hemoglobin 14.3 g/dl (12.0-16.0); Imm Gran Abs Auto 0.04 X10*3/uL (0.00-0.03); Imm Gran Pct Auto 0.3 % (0.0-0.4); Lymphocytes Absolute Auto 2.8 X10*3/uL (1.2-4.9); Lymphocytes Percent Auto 23.9 % (20-40); Mean Corpuscular HGB Conc 32.6 g/dl (31.0-35.0); Mean Corpuscular Volume 85.7 fL (80-98); Mean Platelet Volume 10.4 fL (9.4-12.3); Monocytes Absolute Auto 0.5 X10*3/uL (0.1-1.2); Monocytes Percent Auto 3.9 % (2-11); Neutrophils Absolute Auto 8.2 X10*3/uL (2.0-8.3); Platelet Count 368 X10*3/uL (160-400); Red Blood Count 5.11 X10*6/uL (4.20-5.50); White Blood Count 11.5 X10*3/uL (4.8-10.8)
[2021-06-28 15:15] LABS: Anion Gap 12 (12-20); Blood Urea Nitrogen 8 mg/dL (9-16); Carbon Dioxide 27 mmol/L (22-29); Chloride 106 mmol/L (96-108); Creatinine Clr Calc Pharmacy 53.3; Estimated Glomerular Filt Rate > 60; Glucose Random 115 mg/dL (60-115); Potassium 4.5 mmol/L (3.3-5.1); Sodium 140 mmol/L (135-145)
== END 2021-06-28 15:21 | disposition left against medical advice (07) ==
PROVIDERS: Emergency Provider Emergency Medicine; PCP Internal Medicine
DX: R10.9 Unspecified abdominal pain (principal)
CPT/HCPCS: 36415; 80048; 82272; 85025; 99283

== ENCOUNTER 2021-07-03 10:25 | Outpatient (REF) | payer MEDICARE, SELFPAY ==
[2021-07-03 12:55] LABS: MANUAL DIFF FLAG NO
[2021-07-03 13:12] LABS: Basophils Percent Auto 0.3 % (0-2); Eosinophils Absolute Auto 0.1 X10*3/uL (0.0-0.4); Hemoglobin 13.3 g/dl (12.0-16.0); Imm Gran Abs Auto 0.07 X10*3/uL (0.00-0.03); Imm Gran Pct Auto 0.7 % (0.0-0.4); Lymphocytes Absolute Auto 2.9 X10*3/uL (1.2-4.9); Mean Corpuscular HGB Conc 31.7 g/dl (31.0-35.0); Mean Corpuscular Hemoglobin 27.2 pg (27.0-33.0); Mean Corpuscular Volume 85.9 fL (80-98); Mean Platelet Volume 11.4 fL (9.4-12.3); Monocytes Absolute Auto 0.6 X10*3/uL (0.1-1.2); Monocytes Percent Auto 5.3 % (2-11); Neutrophils Percent Auto 65.7 % (45-73); Platelet Count 356 X10*3/uL (160-400); Red Blood Count 4.89 X10*6/uL (4.20-5.50); Red Cell Distribution Width 13.3 % (11.0-16.0); White Blood Count 10.7 X10*3/uL (4.8-10.8)
[2021-07-03 13:53] LABS: Alanine Aminotransferase 18 U/L (0-31); Albumin Level 4.1 g/dL (3.5-5.0); Alkaline Phosphatase 69 U/L (39-117); Anion Gap 15 (12-20); Aspartate Amino Transferase 13 U/L (5-31); Bilirubin Total 0.2 mg/dL (0.0-1.0); Blood Urea Nitrogen 10 mg/dL (9-16); C Reactive Protein 0.45 mg/dL (< or = 0.50); Calcium 9.6 mg/dL (8.4-10.2); Carbon Dioxide 27 mmol/L (22-29); Chloride 105 mmol/L (96-108); Estimated Glomerular Filt Rate > 60; Glucose Random 113 mg/dL (60-115); Potassium 4.2 mmol/L (3.3-5.1); Sodium 143 mmol/L (135-145); Total Protein 6.8 g/dL (6.5-8.0)
[2021-07-03 14:19] LABS: Erythrocyte Sedimentation Rate 12 MM/HR (0-20)
[2021-07-04 13:37] LABS: CDiff Gene PCR NEGATIVE (Negative)
[2021-07-04 14:03] LABS: Leukocytes Stool Qualitative NEGATIVE (NEGATIVE)
== END 2021-07-03 10:26 | disposition home or self-care (01) ==
LOC: HO.LAB 10:25
PROVIDERS: Absent Provider Internal Medicine; PCP Internal Medicine; Visit Provider Student in an Organized Health Care Education/Training Program
DX: M05.9 Rheumatoid arthritis with rheumatoid factor, unspecified (principal); R19.7 Diarrhea, unspecified
CPT/HCPCS: 36415; 80053; 85025; 85652; 86140; 87045; 87046; 87329; 87338; 87493; 89055

== ENCOUNTER 2021-07-04 14:20 | Outpatient (REF) | payer MEDICARE, SELFPAY | END 2021-07-04 14:21 | disposition home or self-care (01) | LOC: HO.LNP 14:20 | PROVIDERS: Visit Provider Internal Medicine | DX: R19.7 Diarrhea, unspecified (principal); C50.912 Malignant neoplasm of unspecified site of left female breast | CPT/HCPCS: 87045; 87046; 87329 ==

== ENCOUNTER → 2021-07-05 09:39 | Outpatient (BNVA) | payer MEDICARE, MEDICAID, SELFPAY | PROVIDERS: PCP Internal Medicine; Visit Provider Internal Medicine | DX: J45.909 Unspecified asthma, uncomplicated (principal); R05 Cough; J44.9 Chronic obstructive pulmonary disease, unspecified | CPT/HCPCS: 99212 ==

== ENCOUNTER 2021-07-11 11:11 | Emergency (ER) | payer MEDICARE, MEDICAID, SELFPAY ==
--- NOTE | ~2021-07-11 | US_ITS ---
EXAMINATION: US VENOUS ULTRASOUND WITH DOPPLER LOWER EXTREMITY, RIGHT CLINICAL INFORMATION: Chest pain. Assess for occult DVT COMPARISON: Bilateral leg venous ultrasound with Doppler 01/31/2019. TECHNIQUE: Ultrasound of the deep veins is performed from the hip to the calf with compression sonography and color and pulse Doppler assessment. Spectral analysis with color-flow imaging is performed. FINDINGS: There is normal venous compression and respiratory variation and augmented flow. The visualized common femoral vein, superficial femoral vein, profunda femoral vein, popliteal vein, and the trifurcation region shows no evidence of deep venous thrombosis. No popliteal fossa cyst demonstrated. US/US venous duplex LE RT IMPRESSION: No DVT demonstrated in the right lower extremity.
[2021-07-11 12:28] VITALS: BP 153/90; PULSE 99; RESP 17; TEMP 36.7; O2SAT 94; BMI 27.1
--- NOTE | 2021-07-11 16:47 | ED_ITS ---
HPI - General Adult General Chief complaint: Extremity Injury, Lower Stated complaint: leg pain Time Seen by Provider: 07/11/21 13:57 History of Present Illness HPI narrative: Patient complains of right leg low leg pain for several days, she also complains that over the last several weeks several times she has noticed that both her legs turn color to a dark purple or blue color and then go back to normal, right now the only discomfort she has is the right lower leg discomfort, the color is normal she has had no fever there is no other pains Related Data Home Medications Medication Instructions Recorded Confirmed letrozole 2.5 mg tablet 2.5 mg PO DAILY 08/24/20 07/03/21 trazodone 50 mg tablet 100 mg PO BEDTIME tab 11/23/20 07/03/21 lamotrigine 25 mg tablet 25 mg PO DAILY tab 05/09/21 07/03/21 hydroxychloroquine 200 mg tablet 200 mg PO DAILY 05/24/21 07/03/21 Previous Rx's Medication Instructions Recorded montelukast 10 mg tablet 10 mg PO BEDTIME #90 tab 11/28/20 benzonatate 100 mg capsule 100 mg PO TID PRN #30 cap 03/12/21 omeprazole 20 mg capsule,delayed 20 mg PO DAILY@0630 #30 cap 03/12/21 release lancets 28 gauge (FreeStyle #200 ea 03/21/21 Lancets) pen needle, diabetic 31 gauge x #200 ea 03/21/2104/02 (Comfort EZ Pen [place]) blood sugar diagnostic (FreeStyle #200 ea 04/06/21 Test) prednisone 10 mg tablet 10 mg PO DAILY #30 tab 05/04/21 ipratropium 0.5 mg-albuterol 3 mg 3 ml INHALATION Q6H PRN #180 ml 05/12/21 (2.5 mg base)/3 mL nebulization soln Advair HFA 230 mcg-21 2 puff PO BID #12 g NS 05/15/21 mcg/actuation aerosol inhaler (fluticasone propion-salmeterol) dulaglutide 0.75 mg/0.5 mL 0.75 mg SUBCUT QWEEK #6 ml 05/24/21 subcutaneous pen injector (Trulicity) insulin aspart U-100 100 unit/mL 4 unit SUBCUT TIDWMEAL #15 ml 05/24/21 (3 mL) subcutaneous pen (Novolog Flexpen U-100 Insulin aspart) insulin degludec 100 unit/mL (3 46 unit SUBCUT DAILY 30 Days #15 ml 05/24/21 mL) subcutaneous pen (Tresiba FlexTouch U-100 insulin) acetaminophen 500 mg tablet 1,000 mg PO QID PRN #14 tab 06/05/21 (Tylenol Extra Strength) ibuprofen 800 mg tablet 800 mg PO Q8H PRN #14 tab 06/05/21 tizanidine 2 mg tablet 2 mg PO BEDTIME PRN #30 tab 06/13/21 pregabalin 100 mg capsule (Lyrica) 100 mg PO BID #60 cap 06/16/21 pregabalin 200 mg capsule (Lyrica) 200 mg PO BEDTIME #30 cap 06/16/21 abatacept 125 mg/mL subcutaneous 125 mg SUBCUT QWEEK #4 ml 07/04/21 auto-injector (Orencia ClickJect) albuterol sulfate 90 mcg/actuation 2 puff INHALATION Q4H PRN #8.5 g 07/26/21 aerosol inhaler (Ventolin HFA) Allergies Allergy/AdvReac Type Severity Reaction Status Date / Time dog dander [DOGS] Allergy Intermediate Respiratory Verified 07/19/21 09:51 distress ibuprofen [Ibuprofen] Allergy Intermediate STOMACH Verified 07/19/21 09:51 UPSET, abdominal pain, nausea and vomiting prednisone Allergy Intermediate hallucinations, Verified 07/19/21 09:51 higher than 20 shellfish derived Allergy Intermediate Hives Verified 07/19/21 09:51 etanercept [From Enbrel] AdvReac Intermediate Facial Verified 07/19/21 09:51 Swelling metformin AdvReac Intermediate diarrhea Verified 07/19/21 09:51 metronidazole [From FLAGYL] AdvReac Intermediate DIARRHEA Verified 07/19/21 09:51 Review of Systems Review of Systems: Negatives are no fever no chills no headache no dizziness no weakness no neck pain no chest pain no shortness of breath no cough no pain with a deep breath no abdominal pain no nausea or vomiting no joint pains no numbness weakness or tingling no skin rash PMFSH Past Medical History Source: nursing notes reviewed Medical History Allergic rhinitis Allergic rhinitis Allergic rhinitis Anxiety Asthma Asthma Bipolar 1 disorder, depressed Bloody diarrhea Breast cancer Bronchial asthma Colitis COPD (chronic obstructive pulmonary disease) Cough Depression Diabetes type 2, uncontrolled Dyslipidemia Fibromyalgia Hyperlipidemia LDL goal <100 Hyperparathyroidism Hypertension Hypothyroid Hypothyroid IDDM (insulin dependent diabetes mellitus) IDDM (insulin dependent diabetes mellitus) Infiltrating ductal carcinoma of left breast, stage 2 Insomnia Irritable bowel Osteoporosis PAD (peripheral artery disease) Reactive airways dysfunction syndrome Restrictive airway disease Rheumatoid arthritis Seropositive rheumatoid arthritis T2DM (type 2 diabetes mellitus) Thyroid nodule Vitamin D deficiency Surgical History H/O: hysterectomy History of bunionectomy of both great toes History of colonoscopy History of esophagogastroduodenoscopy (EGD) History of lumpectomy of left breast History of pubovaginal sling History of tubal ligation Family History Family History Mother Diabetes HTN (hypertension) Uterus cancer Malignant tumor of head Breast cancer Father Diabetes HTN (hypertension) CVD (cardiovascular disease) Heart problem Maternal Aunt Breast cancer Brother Myocardial infarction S/P CABG x 4 Family/Other FH: mental illness Other Mental health disorder Social History Social History Household Members: Family Household Members Other:: sister Housing: Apartment Do you presently have visiting nurse or other home services: Yes (sister=child development associate teacher) Alcohol intake: never Patient Tobacco Use Status: Current everyday Tobacco user Tobacco use type: Cigarette Cigarettes Per Day: 2 Years Smoked: 46 e-Cigarette/Vaping Use: Never Used Second Hand Smoke Exposure: No Advance Directives Date on File: 03/09/21 service: No Current occupational status: disabled Current occupation: rt handed Physical Exam Vital Signs: Vital Signs: Last Vital Signs Temp 98.1 F 07/11/21 12:28 Pulse 99 07/11/21 12:28 Resp 17 07/11/21 12:28 BP 153/90 H 07/11/21 12:28 Pulse Ox 94 07/11/21 12:28 Body Mass Index 27.1 General appearance is no acute distress, comfortable Head is normocephalic atraumatic Neck is supple Respiratory no distress Chest clear to auscultation bilateral Heart no murmur Abdomen soft nontender Extremities full range of motion x4 The right lower leg had some tenderness but otherwise both legs had normal color normal appearance and both legs for neurovascular intact distal, there was no obvious swelling and all joints had full range of motion Skin no rash Neuro no focal motor sensory deficits Course Course Course Narrative: Right leg ultrasound was negative Both extremities had normal color and normal neuro exam with no evidence of any wounds or infections, pulses were intact and symmetrical in both extremities, no evidence of any ischemia Discharge Plan Discharge Clinical Impression: Leg pain, right Patient Disposition: Home, Self-Care Additional Instructions: Ultrasound of your right leg was normal, no sign of a blood clot If symptoms continue you may need to follow with primary care doctor as sometimes they will need to repeat a 2nd test to be sure that nothing was missed today For the changing in color of her legs which happens occasionally you may need to see a vascular specialist so follow with her doctor and he will decide if he needs a referral Return to the ER any time for difficulty breathing, leg swelling, any worse condition or any concerns Prescriptions: No Action montelukast 10 mg tablet 10 mg PO BEDTIME Qty: 90 RF: 1 (DME) FreeStyle Test Strip See Rx Instructions .ROUTE .MEDSUPPLY Qty: 200 RF: 11 prednisone 10 mg tablet 10 mg PO DAILY Qty: 30 RF: 2 ipratropium-albuterol 0.5 mg-3 mg(2.5 mg base)/3 mL solution for nebulization 3 ml inhalation Q6H PRN (Reason: wheezing) Qty: 180 RF: 2 Advair HFA 230-21 mcg/actuation HFA aerosol inhaler 2 puff PO BID Qty: 12 RF: 3 tizanidine 2 mg tablet 2 mg PO BEDTIME PRN (Reason: muscle spasm) Qty: 30 RF: 5 Orencia ClickJect 125 mg/mL auto-injector 125 mg subcut QWEEK Qty: 4 RF: 3 albuterol sulfate [Ventolin HFA] 90 mcg/actuation HFA aerosol inhaler 2 puff inhalation Q4H PRN (Reason: shortness of breath or wheezing) Qty: 8.5 RF: 2 omeprazole 20 mg Capsule,Delayed Release(Dr/Ec) 20 mg PO DAILY@0630 Qty: 30 RF: 0 benzonatate 100 mg Capsule 100 mg PO TID PRN (Reason: Cough) Qty: 30 RF: 0 ibuprofen 800 mg tablet 800 mg PO Q8H PRN (Reason: pain) Qty: 14 RF: 0 acetaminophen [Tylenol Extra Strength] 500 mg tablet 1,000 mg PO QID PRN (Reason: fever or pain) Qty: 14 RF: 0 letrozole 2.5 mg tablet 2.5 mg PO DAILY RF: 0 trazodone 50 mg tablet 100 mg PO BEDTIME RF: 0 lamotrigine 25 mg tablet 25 mg PO DAILY RF: 0 (DME) pen needle, diabetic [Comfort EZ Pen [place]] 31 gauge x 5/16 needle See Rx Instructions .ROUTE .MEDSUPPLY Qty: 200 RF: 11 (DME) lancets [FreeStyle Lancets] 28 gauge misc See Rx Instructions .ROUTE .MEDSUPPLY Qty: 200 RF: 11 hydroxychloroquine 200 mg tablet 200 mg PO DAILY RF: 0 Tresiba FlexTouch U-100 100 unit/mL (3 mL) insulin pen 46 unit subcut DAILY 30 Days Qty: 15 RF: 3 insulin aspart U-100 [Novolog Flexpen U-100 Insulin] 100 unit/mL (3 mL) insulin pen 4 unit subcut TIDWMEAL Qty: 15 RF: 2 Trulicity 0.75 mg/0.5 mL pen injector 0.75 mg subcut QWEEK Qty: 6 RF: 1 pregabalin [Lyrica] 100 mg capsule 100 mg PO BID Qty: 60 RF: 5 pregabalin [Lyrica] 200 mg capsule 200 mg PO BEDTIME Qty: 30 RF: 5 Interventions: ED Discharge Assessment Last Done: 07/11/21 17:00 Discharge Date/Time: 07/11/21 17:01
== END 2021-07-11 17:01 | disposition home or self-care (01) ==
PROVIDERS: Emergency Provider Emergency Medicine; PCP Internal Medicine
DX: M79.604 Pain in right leg (principal); E11.9 Type 2 diabetes mellitus without complications; E78.5 Hyperlipidemia, unspecified; Z86.16 Personal history of COVID-19; B15.9 Hepatitis A without hepatic coma; Z79.4 Long term (current) use of insulin; Z79.02 Long term (current) use of antithrombotics/antiplatelets; Z79.899 Other long term (current) drug therapy
CPT/HCPCS: 93971; 99283; 99284

== ENCOUNTER 2021-07-19 07:30 | Outpatient (REF) | payer MEDICARE, MEDICAID, SELFPAY ==
--- NOTE | ~2021-07-19 | XR_ITS ---
EXAMINATION: XR ELBOW, LEFT CLINICAL INFORMATION: Fracture COMPARISON: Previous x-rays most recent 06/21/2021 TECHNIQUE: AP, lateral, and oblique views of the left elbow. FINDINGS: There is a transverse slightly impacted fracture of the radial head/neck. This does not appear intra-articular. This appears unchanged. No other fracture is seen. Joint spaces are normal. There is a joint effusion. XR/XR elbow LT min 3V IMPRESSION: No change in the radial head/neck fracture. Joint effusion.
== END 2021-07-19 07:31 | disposition home or self-care (01) ==
LOC: HO.HOSX 07:30
PROVIDERS: Visit Provider Physician Assistant
DX: S52.122D Displaced fracture of head of left radius, subsequent encounter for closed fracture with routine healing (principal)
CPT/HCPCS: 73080; 99212

== ENCOUNTER → 2021-08-01 09:37 | Outpatient (BNVA) | payer MEDICARE, MEDICAID, SELFPAY | PROVIDERS: PCP Internal Medicine; Referring Provider Internal Medicine; Visit Provider Surgery | DX: C50.912 Malignant neoplasm of unspecified site of left female breast (principal) | CPT/HCPCS: 99212 ==

== ENCOUNTER → 2021-08-02 12:29 | Outpatient (BNVA) | payer MEDICARE, MEDICAID, SELFPAY | PROVIDERS: PCP Internal Medicine; Visit Provider Nurse Practitioner Family | DX: M05.9 Rheumatoid arthritis with rheumatoid factor, unspecified (principal); M79.7 Fibromyalgia | CPT/HCPCS: 99212 ==

== ENCOUNTER → 2021-08-08 13:47 | Outpatient (BNVA) | payer MEDICARE, MEDICAID, SELFPAY | PROVIDERS: PCP Internal Medicine; Referring Provider Internal Medicine; Visit Provider Surgery Vascular Surgery | DX: I83.11 Varicose veins of right lower extremity with inflammation (principal); I73.00 Raynaud's syndrome without gangrene | CPT/HCPCS: 99202 ==

== ENCOUNTER 2021-08-16 09:30 | Outpatient (RCR) | payer MEDICARE, MEDICAID, SELFPAY ==
--- NOTE | 2021-08-16 10:14 | MHC.OT.DC ---
[address] [phone] F: [phone] Occupational Therapy Discharge Note Provider: Gunjan Bowen Pa-C Diagnosis: Left radial head fracture Date of Surgery: Date of Evaluation: 07/26/21 Date of Discharge: 08/16/21 Treatments to Date: 3 Cancellations to Date: 1 No Shows to Date: 0 Discharge Status: Achieved Goals Discharge Summary: Pt 10 wks s/p left radial head fx Painfree left elbow ROM WNL Increment Manager strength WNL Pt reports mild difficulty with daily activities with avoiding heavy lifting and avoiding full wt bearing on left Goals met Electronically Signed By: Lelo Vera OT CHT CLT Reviewed/agree with student documentation: N/A Therapist: Please Sign and return to therapist, thank you for your referral.
== END 2021-09-04 15:56 | disposition home or self-care (01) ==
LOC: HO.OT 09:30
PROVIDERS: PCP Internal Medicine; Visit Provider Physician Assistant
DX: S52.122D Displaced fracture of head of left radius, subsequent encounter for closed fracture with routine healing (principal)
CPT/HCPCS: 97110; 97140; 97166

== ENCOUNTER 2021-08-22 10:36 | Outpatient (REF) | payer MEDICARE, MEDICAID, SELFPAY ==
--- NOTE | ~2021-08-22 | US_ITS ---
EXAMINATION: BILATERAL LOWER EXTREMITY VENOUS ULTRASOUND (REFLUX EXAM) CLINICAL INDICATION: Lower extremity varicose veins. COMPARISON: 01/31/2019 TECHNIQUE: Color flow triplex imaging and compression Doppler was performed to evaluate both the deep and the superficial systems bilaterally. To evaluate the superficial system, the examination was performed in the upright position. Color-flow Doppler ultrasound and compression ultrasound were utilized. In addition, maneuvers were utilized to demonstrate reflux. FINDINGS: 1. DEEP VENOUS ULTRASOUND OF THE RIGHT LOWER EXTREMITY: Common Femoral Vein: Compressible, normal respiratory variation and augmented flow. Femoral vein: Compressible, normal color flow and augmentation. Popliteal Vein: Compressible, normal augmentation. Deep Reflux: There is no evidence of reflux in the deep system in either the common femoral vein or the popliteal vein. There is no evidence of a Mccormick's cyst. 2. SUPERFICIAL ULTRASOUND WITH DOPPLER OF RIGHT LOWER EXTREMITY GREAT SAPHENOUS VEIN: Saphenofemoral junction: 0.6 cm; Reflux: No evidence of reflux. Max diameter: 0.6 Min diameter: 0.1 Reflux: No evidence of reflux. DUPLICATED MEDIAL GREAT SAPHENOUS VEIN: 0.3 cm, no reflux. DUPLICATED LATERAL GREAT SAPHENOUS VEIN: None Imaged. SMALL SAPHENOUS VEIN: Saphenopopliteal junction: 0.2 cm; Reflux: No evidence of reflux. Max diameter: 0.2 Min diameter: 0.1 Reflux: No evidence of reflux. VEIN OF GIACOMINI: None Imaged. PERFORATORS: [place], no reflux. VARICOSITIES: Location: None Imaged. 3. DEEP VENOUS ULTRASOUND OF THE LEFT LOWER EXTREMITY: Common Femoral Vein: Compressible, normal respiratory variation and augmented flow. Femoral vein: Compressible, normal color flow and augmentation. Popliteal Vein: Compressible, normal augmentation. Deep Reflux: There is no evidence of reflux in the deep system in either the common femoral vein or the popliteal vein. There is no evidence of a Mccormick's cyst. 4. SUPERFICIAL ULTRASOUND WITH DOPPLER OF LEFT LOWER EXTREMITY GREAT SAPHENOUS VEIN: Saphenofemoral junction: 0.6 cm; Reflux: No evidence of reflux. Max diameter: 0.6 Min diameter: 0.2 Reflux: No evidence of reflux. DUPLICATED MEDIAL GREAT SAPHENOUS VEIN: 0.3 cm, no reflux. DUPLICATED LATERAL GREAT SAPHENOUS VEIN: None Imaged. SMALL SAPHENOUS VEIN: Saphenofemoral junction: 0.1 cm; Reflux: No evidence of reflux. Max diameter: 0.1 Min diameter: 0.1 Reflux: No evidence of reflux. VEIN OF GIACOMINI: None Imaged. PERFORATORS: [place], 0.2 cm, no reflux. VARICOSITIES: Location: None Imaged. Reflux: No evidence of reflux. 3. DEEP VENOUS ULTRASOUND OF THE LEFT LOWER EXTREMITY: Common Femoral Vein: Compressible, normal respiratory variation and augmented flow. Femoral vein: Compressible, normal color flow and augmentation. Popliteal Vein: Compressible, normal augmentation. Deep Reflux: There is no evidence of reflux in the deep system in either the common femoral vein or the popliteal vein. There is no evidence of a Mccormick's cyst. US/US venous duplex LE BI IMPRESSION: 1. No evidence of superficial venous insufficiency. 2. No evidence of deep venous insufficiency or DVT.
== END 2021-08-22 10:37 | disposition home or self-care (01) ==
LOC: HO.US 10:36
PROVIDERS: PCP Internal Medicine; Visit Provider Surgery Vascular Surgery
DX: I83.893 Varicose veins of bilateral lower extremities with other complications (principal)
CPT/HCPCS: 93970

== ENCOUNTER → 2021-09-04 09:31 | Outpatient (BNVA) | payer MEDICARE, MEDICAID, SELFPAY | PROVIDERS: PCP Internal Medicine; Visit Provider Internal Medicine | DX: J45.909 Unspecified asthma, uncomplicated (principal); J44.9 Chronic obstructive pulmonary disease, unspecified; R05.9 Cough, unspecified | CPT/HCPCS: 99212 ==

== ENCOUNTER 2021-09-07 11:28 | Outpatient (REF) | payer MEDICARE, MEDICAID, SELFPAY ==
[2021-09-07 12:50] LABS: Alanine Aminotransferase 23 U/L (0-31); Albumin Level 4.2 g/dL (3.5-5.0); Alkaline Phosphatase 57 U/L (39-117); Anion Gap 10 (12-20); Aspartate Amino Transferase 23 U/L (5-31); Bilirubin Total 0.4 mg/dL (0.0-1.0); Blood Urea Nitrogen 10 mg/dL (9-16); C Reactive Protein 0.76 mg/dL (< or = 0.50); Carbon Dioxide 26 mmol/L (22-29); Chloride 108 mmol/L (96-108); Estimated Glomerular Filt Rate > 60; Glucose Random 97 mg/dL (60-115); Phosphorus 3.7 mg/dL (2.7-4.5); Potassium 4.4 mmol/L (3.3-5.1); Sodium 140 mmol/L (135-145); Total Protein 7.1 g/dL (6.5-8.0)
[2021-09-08 15:51] LABS: Calcium (PTHI) 9.7 mg/dL (8.6-10.4); PTHI 29 pg/mL (14-64)
== END 2021-09-07 11:29 | disposition home or self-care (01) ==
LOC: HO.LAB 11:28
PROVIDERS: Absent Provider Internal Medicine; PCP Internal Medicine; Visit Provider Surgery Vascular Surgery
DX: M05.9 Rheumatoid arthritis with rheumatoid factor, unspecified (principal); M81.0 Age-related osteoporosis without current pathological fracture; E55.9 Vitamin D deficiency, unspecified; I83.11 Varicose veins of right lower extremity with inflammation; I73.00 Raynaud's syndrome without gangrene; F17.200 Nicotine dependence, unspecified, uncomplicated; Z71.6 Tobacco abuse counseling
CPT/HCPCS: 36415; 80053; 82306; 83970; 84100; 86140; 99212

== ENCOUNTER 2021-09-12 18:54 | Emergency (ER) | payer MEDICARE, MEDICAID, SELFPAY ==
--- NOTE | ~2021-09-12 | CT_ITS ---
EXAMINATION: CT ABDOMEN AND PELVIS WITHOUT CONTRAST CLINICAL INFORMATION: Left flank pain. COMPARISON: CT chest and abdomen dated from 03/09/2021. TECHNIQUE: Multidetector volumetric imaging was performed from the superior aspect of the liver through the pubic symphysis. Sagittal and coronal reformatted images were obtained on the technologist's workstation. This CT examination was performed using dose optimization techniques as appropriate, variously including the following: *Automated exposure control *Adjustment of mA and/or kV according to patient size (this includes techniques or standardized protocols for targeted exams where dose is matched to indication/reason for exam; i.e. extremities or head) *Use of iterative reconstruction technique DLP: 413 mGy-cm FINDINGS: LUNG BASES: Linear opacities in the right middle lobe, lingula and lung bases likely subsegmental atelectases and parenchymal scarring are stable. No focal consolidation or pleural effusion. Coronary calcifications. LIVER, GALLBLADDER, AND BILIARY TREE: There is diffuse decreased hepatic parenchymal attenuation, most consistent with hepatic steatosis. Otherwise, the liver is normal in size and shape without focal abnormalities. The gallbladder is unremarkable. There is no biliary ductal dilatation. PANCREAS: No focal lesions. The main pancreatic duct is nondilated. No peripancreatic fat stranding or free fluid. SPLEEN: Unremarkable. ADRENAL GLANDS: Unremarkable. KIDNEYS AND URETERS: The kidneys are normal in size, shape, and attenuation. No hydronephrosis, hydroureter, or calculi seen. No perinephric stranding. BLADDER: Partially under distended limiting assessment of wall thickening. No focal abnormalities or significant surrounding inflammatory changes. GASTROINTESTINAL TRACT: The stomach and the small bowel are nondilated. There is fecalization of the small bowel suggesting slow transit. There is also significant amount of stool burden throughout the colon and rectum. The appendix is unremarkable. There is no bowel obstruction or pericolic inflammatory changes. ABDOMINAL WALL: Small fat-containing umbilical hernia. LYMPH NODES: No lymphadenopathy by size criteria. Very minimal fat stranding in the root of the mesentery around the celiac trunk (image 26 of series 3) is unchanged and of uncertain clinical significance. Prominent left-sided celiac ganglia on image 26 of series 3, similar to prior. VASCULAR: Scattered atherosclerotic disease of the abdominal aorta which is of normal diameter. PELVIC VISCERA: Hysterectomy. No adnexal lesions. OSSEOUS STRUCTURES: No acute or aggressive osseous abnormalities. CT/CT abdomen pelvis wo con IMPRESSION: No acute intra-abdominal or pelvic abnormalities to explain the patient's symptoms. Hepatic steatosis. Large stool burden throughout the colon and fecalization of some loops of small bowel suggesting slow transit and constipation.
[2021-09-12 19:25] VITALS: BP 137/83; PULSE 111; RESP 18; TEMP 36.9; O2SAT 94; BMI 27.1
[2021-09-12 20:44] LABS: MANUAL DIFF FLAG NO
[2021-09-12 20:46] LABS: Appearance Urine CLEAR; Basophils Absolute Auto 0.1 X10*3/uL (0.0-0.2); Basophils Percent Auto 0.5 % (0-2); Color Urine YELLOW; Eosinophils Absolute Auto 0.1 X10*3/uL (0.0-0.4); Eosinophils Percent Auto 0.7 % (0-4); Glucose Urine UA NEG (NEG); Hematocrit 41.2 % (37-47); Hemoglobin 13.8 g/dl (12.0-16.0); Imm Gran Abs Auto 0.02 X10*3/uL (0.00-0.03); Imm Gran Pct Auto 0.2 % (0.0-0.4); Leukocyte Esterase Urine 2+ (NEG); Lymphocytes Percent Auto 40.8 % (20-40); Mean Corpuscular HGB Conc 33.5 g/dl (31.0-35.0); Mean Corpuscular Hemoglobin 27.7 pg (27.0-33.0); Mean Corpuscular Volume 82.7 fL (80-98); Mean Platelet Volume 10.7 fL (9.4-12.3); Monocytes Absolute Auto 0.7 X10*3/uL (0.1-1.2); Monocytes Percent Auto 7.1 % (2-11); Neutrophils Absolute Auto 4.9 X10*3/uL (2.0-8.3); Neutrophils Percent Auto 50.7 % (45-73); Nitrite Urine NEG (NEG); PH 6.5 (5.0-8.0); Platelet Count 338 X10*3/uL (160-400); Red Blood Count 4.98 X10*6/uL (4.20-5.50); Red Cell Distribution Width 14.2 % (11.0-16.0); Specific Gravity - Urine 1.015 (1.005-1.025); UACC Culture Trigger YES; Urine Blood TRACE (NEG); Urine Ketones NEG (NEG); Urine Protein NEG (NEG-TRACE); White Blood Count 9.7 X10*3/uL (4.8-10.8)
[2021-09-12 20:55] LABS: Amorphous Sediment Urine 1+ /LPF; Bacteria Urine 1+ /LPF; Squamous Epithelial Cell Urine TRACE /LPF
[2021-09-12 20:56] LABS: RBC Urine 0-2 /HPF (0); WBC Urine 0-2 /HPF (0-4)
[2021-09-12 21:02] LABS: Alanine Aminotransferase 22 U/L (0-31); Albumin Level 4.4 g/dL (3.5-5.0); Alkaline Phosphatase 64 U/L (39-117); Anion Gap 12 (12-20); Aspartate Amino Transferase 19 U/L (5-31); Bilirubin Total 0.4 mg/dL (0.0-1.0); Blood Urea Nitrogen 13 mg/dL (9-16); Carbon Dioxide 29 mmol/L (22-29); Chloride 105 mmol/L (96-108); Creatinine Clr Calc Pharmacy 52.9; Estimated Glomerular Filt Rate > 60; Glucose Random 98 mg/dL (60-115); Potassium 4.8 mmol/L (3.3-5.1); Sodium 141 mmol/L (135-145); Total Protein 7.4 g/dL (6.5-8.0)
--- NOTE | 2021-09-12 21:16 | ED_ITS ---
HPI - Abdominal Pain General Chief Complaint: General Medical Stated Complaint: kidney pain, nausea Time Seen by Provider: 09/12/21 21:07 Source: patient and old records reviewed Mode of arrival: ambulatory Limitations: no limitations History of Present Illness MD elicited complaint: abdominal pain and flank pain Pertinent past history: other (colitis) Onset (ago): hour(s) (8) Pain Consistency: constant Location: L flank Severity: severe Quality: stabbing Radiation: LLQ Migration to: no migration Exacerbating factors: nothing Relieving factors: nothing Associated symptoms: nausea and vomiting Related Data Home Medications Medication Instructions Recorded Confirmed letrozole 2.5 mg tablet 2.5 mg PO DAILY 08/24/20 07/03/21 trazodone 50 mg tablet 100 mg PO BEDTIME tab 11/23/20 07/03/21 lamotrigine 25 mg tablet 25 mg PO DAILY tab 05/09/21 07/03/21 cholecalciferol (vitamin D3) 25 25 mcg PO DAILY 08/08/21 mcg (1,000 unit) tablet trazodone 100 mg tablet 100 mg PO BEDTIME 08/08/21 leflunomide 20 mg tablet 20 mg PO DAILY 09/07/21 Previous Rx's Medication Instructions Recorded montelukast 10 mg tablet 10 mg PO BEDTIME #90 tab 11/28/20 benzonatate 100 mg capsule 100 mg PO TID PRN #30 cap 03/12/21 omeprazole 20 mg capsule,delayed 20 mg PO DAILY@0630 #30 cap 03/12/21 release lancets 28 gauge (FreeStyle #200 ea 03/21/21 Lancets) pen needle, diabetic 31 gauge x #200 ea 03/21/2104/02 (Comfort EZ Pen [place]) blood sugar diagnostic (FreeStyle #200 ea 04/06/21 Test) prednisone 10 mg tablet 10 mg PO DAILY #30 tab 05/04/21 Advair HFA 230 mcg-21 2 puff PO BID #12 g NS 05/15/21 mcg/actuation aerosol inhaler (fluticasone propion-salmeterol) dulaglutide 0.75 mg/0.5 mL 0.75 mg SUBCUT QWEEK #6 ml 05/24/21 subcutaneous pen injector (Trulicity) insulin aspart U-100 100 unit/mL 4 unit SUBCUT TIDWMEAL #15 ml 05/24/21 (3 mL) subcutaneous pen (Novolog Flexpen U-100 Insulin aspart) insulin degludec 100 unit/mL (3 46 unit SUBCUT DAILY 30 Days #15 ml 05/24/21 mL) subcutaneous pen (Tresiba FlexTouch U-100 insulin) acetaminophen 500 mg tablet 1,000 mg PO QID PRN #14 tab 06/05/21 (Tylenol Extra Strength) ibuprofen 800 mg tablet 800 mg PO Q8H PRN #14 tab 06/05/21 tizanidine 2 mg tablet 2 mg PO BEDTIME PRN #30 tab 06/13/21 pregabalin 100 mg capsule (Lyrica) 100 mg PO BID #60 cap 06/16/21 pregabalin 200 mg capsule (Lyrica) 200 mg PO BEDTIME #30 cap 06/16/21 abatacept 125 mg/mL subcutaneous 125 mg SUBCUT QWEEK #4 ml 07/04/21 auto-injector (Orencia ClickJect) albuterol sulfate 90 mcg/actuation 2 puff INHALATION Q4H PRN #8.5 g 07/26/21 aerosol inhaler (Ventolin HFA) ipratropium 0.5 mg-albuterol 3 mg 3 ml INHALATION Q6H PRN #180 ml 08/04/21 (2.5 mg base)/3 mL nebulization soln flash glucose sensor (FreeStyle #1 ea 08/22/21 Toby 2 Sensor) magnesium citrate 150 ml PO BID PRN #296 ml 09/12/21 ondansetron 4 mg disintegrating 4 mg PO Q8H PRN #20 tab 09/12/21 tablet sennosides 8.6 mg capsule (senna) 8.6 mg PO BEDTIME PRN #30 cap 09/12/21 Allergies Allergy/AdvReac Type Severity Reaction Status Date / Time dog dander [DOGS] Allergy Intermediate Respiratory Verified 09/12/21 19:24 distress ibuprofen [Ibuprofen] Allergy Intermediate STOMACH Verified 09/12/21 19:24 UPSET, abdominal pain, nausea and vomiting prednisone Allergy Intermediate hallucinations, Verified 09/12/21 19:24 higher than 20 shellfish derived Allergy Intermediate Hives Verified 09/12/21 19:24 etanercept [From Enbrel] AdvReac Intermediate Facial Verified 09/12/21 19:24 Swelling metformin AdvReac Intermediate diarrhea Verified 09/12/21 19:24 metronidazole [From FLAGYL] AdvReac Intermediate DIARRHEA Verified 09/12/21 19:24 Review of Systems Review of Systems Constitutional : No Weight loss, No Fever, No Chills ENT/Mouth : No sore throat, No Rhinorrhea Eyes: No Swelling, No Redness Cardiovascular : No Chest Pain, No SOB, NoEdema Respiratory : No Cough, No Sputum, No Wheezing Gastrointestinal : Positive Nausea, Positive Vomiting, no Diarrhea, positive abdominal Pain, No Hematochezia, No Melena Genitourinary : No Dysuria, No Urinary Frequency, No Hematuria, No Urgency Musculoskeletal : No joint pain, No Myalgias, No Joint Swelling Skin : No Skin Lesions, No rash Neuro : No Weakness, No Numbness, No Dizziness, No Headache Psych : No Anxiety/Panic, No Depression Heme/Lymph: No Bruising, No Lymphadenopathy Endocrine : No Polyuria, No Polydipsia All other systems reviewed and are negative. Physical Exam Vital Signs: Vital Signs: Last Vital Signs Temp 98.5 F 09/12/21 19:25 Pulse 111 H 09/12/21 19:25 Resp 18 09/12/21 19:25 BP 137/83 09/12/21 19:25 Pulse Ox 94 09/12/21 19:25 Body Mass Index 27.1 Appearance: Alert. Oriented X3. No acute distress. Eyes: Pupils equal, round and reactive to light. ENT: Pharynx normal. Neck: Normal inspection. Neck supple. CVS: Normal heart rate and rhythm. Pulses normal. Respiratory: No respiratory distress. Breath sounds normal. Abdomen: Soft and nontender. Mild CVA ttp Skin: Skin warm and dry. Normal skin color. Normal skin turgor. Extremities: No lower extremity edema. No calf ttp Neuro: Oriented X 3. No motor deficit. No sensory deficit. Course Course Course Narrative: labs and UA reassuring CT scan sig constipation can be DC home at this time MDM - Abdominal Pain MDM Narrative Medical decision making narrative: 61 yo female with hx of colitis comes in with c/o L flank pain radiating to L groin - c/o n/v as well but no diarrhea. At this time labs, UA< IVF, IV morphine/zofran for pain. CT scan for renal colic. Dispo per results and findings. Lab Data Result diagrams: 09/12/21 20:39 09/12/21 20:39 Labs: Lab Results 09/12/21 09/12/21 09/12/21 Range/Units 20:39 20:39 20:39 WBC 9.7 (4.8-10.8) X10*3/uL RBC 4.98 (4.20-5.50) X10*6/uL Hgb 13.8 (12.0-16.0) g/dl Hct 41.2 (37-47) % MCV 82.7 (80-98) fL MCH 27.7 (27.0-33.0) pg MCHC 33.5 (31.0-35.0) g/dl RDW 14.2 (11.0-16.0) % Plt Count 338 (160-400) X10*3/uL MPV 10.7 (9.4-12.3) fL Immature Gran % (Auto) 0.2 (0.0-0.4) % Neut % (Auto) 50.7 (45-73) % Lymph % (Auto) 40.8 H (20-40) % Crane % (Auto) 7.1 (2-11) % Eos % (Auto) 0.7 (0-4) % Baso % (Auto) 0.5 (0-2) % Lymph # (Auto) 4.0 (1.2-4.9) X10*3/uL Crane # (Auto) 0.7 (0.1-1.2) X10*3/uL Eos # (Auto) 0.1 (0.0-0.4) X10*3/uL Baso # (Auto) 0.1 (0.0-0.2) X10*3/uL Abs Immat Gran (auto) 0.02 (0.00-0.03) X10*3/uL Absolute Neuts (auto) 4.9 (2.0-8.3) X10*3/uL Absolute Nucleated RBC 0.000 (0.0-0.012) X10*3/uL Nucleated RBC % (auto) 0.0 (0.0-0.2) /100WBC Sodium 141 (135-145) mmol/L Potassium 4.8 (3.3-5.1) mmol/L Chloride 105 (96-108) mmol/L Carbon Dioxide 29 (22-29) mmol/L Anion Gap 12 (12-20) BUN 13 (9-16) mg/dL Creatinine 0.87 (0.5-1.4) mg/dL Estim Creat Clear Calc 52.9 Estimated GFR > 60 Random Glucose 98 (60-115) mg/dL Lactic Acid (0.5-2.0) mmol/L Calcium 10.0 (8.4-10.2) mg/dL Total Bilirubin 0.4 (0.0-1.0) mg/dL AST 19 (5-31) U/L ALT 22 (0-31) U/L Alkaline Phosphatase 64 (39-117) U/L Total Protein 7.4 (6.5-8.0) g/dL Albumin 4.4 (3.5-5.0) g/dL Lipase 32 (8-78) U/L Urine Color YELLOW Urine Appearance CLEAR Urine pH 6.5 (5.0-8.0) Ur Specific [place] 1.015 (1.005-1.025) Urine Protein NEG (NEG-TRACE) MG/DL Urine Glucose (UA) NEG (NEG) MG/DL Urine Ketones NEG (NEG) MG/DL Urine Blood TRACE (NEG) Urine Nitrite NEG (NEG) Ur Leukocyte Esterase 2+ H (NEG) Urine RBC 0-2 (0) /HPF Urine WBC 0-2 (0-4) /HPF Ur Squamous Epith Cells TRACE /LPF Amorphous Sediment 1+ /LPF Urine Bacteria 1+ /LPF 09/12/21 Range/Units 22:00 WBC (4.8-10.8) X10*3/uL RBC (4.20-5.50) X10*6/uL Hgb (12.0-16.0) g/dl Hct (37-47) % MCV (80-98) fL MCH (27.0-33.0) pg MCHC (31.0-35.0) g/dl RDW (11.0-16.0) % Plt Count (160-400) X10*3/uL MPV (9.4-12.3) fL Immature Gran % (Auto) (0.0-0.4) % Neut % (Auto) (45-73) % Lymph % (Auto) (20-40) % Crane % (Auto) (2-11) % Eos % (Auto) (0-4) % Baso % (Auto) (0-2) % Lymph # (Auto) (1.2-4.9) X10*3/uL [place]ane # (Auto) (0.1-1.2) X10*3/uL Eos # (Auto) (0.0-0.4) X10*3/uL Baso # (Auto) (0.0-0.2) X10*3/uL Abs Immat Gran (auto) (0.00-0.03) X10*3/uL Absolute Neuts (auto) (2.0-8.3) X10*3/uL Absolute Nucleated RBC (0.0-0.012) X10*3/uL Nucleated RBC % (auto) (0.0-0.2) /100WBC Sodium (135-145) mmol/L Potassium (3.3-5.1) mmol/L Chloride (96-108) mmol/L Carbon Dioxide (22-29) mmol/L Anion Gap (12-20) BUN (9-16) mg/dL Creatinine (0.5-1.4) mg/dL Estim Creat Clear Calc Estimated GFR Random Glucose (60-115) mg/dL Lactic Acid 0.9 (0.5-2.0) mmol/L Calcium (8.4-10.2) mg/dL Total Bilirubin (0.0-1.0) mg/dL AST (5-31) U/L ALT (0-31) U/L Alkaline Phosphatase (39-117) U/L Total Protein (6.5-8.0) g/dL Albumin (3.5-5.0) g/dL Lipase (8-78) U/L Urine Color Urine Appearance Urine pH (5.0-8.0) Ur Specific [place] (1.005-1.025) Urine Protein (NEG-TRACE) MG/DL Urine Glucose (UA) (NEG) MG/DL Urine Ketones (NEG) MG/DL Urine Blood (NEG) Urine Nitrite (NEG) Ur Leukocyte Esterase (NEG) Urine RBC (0) /HPF Urine WBC (0-4) /HPF Ur Squamous Epith Cells /LPF Amorphous Sediment /LPF Urine Bacteria /LPF Discharge Plan Discharge Clinical Impression: Constipation Qualifiers: Constipation type: unspecified constipation type Qualified Code(s): K59.00 - Constipation, unspecified Abdominal pain Qualifiers: Abdominal location: left lower quadrant Qualified Code(s): R10.32 - Left lower quadrant pain Patient Disposition: Home, Self-Care Instructions: Constipation (ED), Abdominal Pain (ED) Additional Instructions: return to ED for any worsening symptoms or concerns Prescriptions: New ondansetron 4 mg tablet,disintegrating 4 mg PO Q8H PRN (Reason: nausea and vomiting) Qty: 20 RF: 0 senna 8.6 mg capsule 8.6 mg PO BEDTIME PRN (Reason: constipation) Qty: 30 RF: 0 magnesium citrate Solution 150 ml PO BID PRN (Reason: constipation) Qty: 296 RF: 0 No Action montelukast 10 mg tablet 10 mg PO BEDTIME Qty: 90 RF: 1 (DME) FreeStyle Test Strip See Rx Instructions .ROUTE .MEDSUPPLY Qty: 200 RF: 11 prednisone 10 mg tablet 10 mg PO DAILY Qty: 30 RF: 2 Advair HFA 230-21 mcg/actuation HFA aerosol inhaler 2 puff PO BID Qty: 12 RF: 3 tizanidine 2 mg tablet 2 mg PO BEDTIME PRN (Reason: muscle spasm) Qty: 30 RF: 5 Orencia ClickJect 125 mg/mL auto-injector 125 mg subcut QWEEK Qty: 4 RF: 3 albuterol sulfate [Ventolin HFA] 90 mcg/actuation HFA aerosol inhaler 2 puff inhalation Q4H PRN (Reason: shortness of breath or wheezing) Qty: 8.5 RF: 2 ipratropium-albuterol 0.5 mg-3 mg(2.5 mg base)/3 mL solution for nebulization 3 ml inhalation Q6H PRN (Reason: for wheezing) Qty: 180 RF: 2 (DME) FreeStyle Toby 2 Sensor Kit See Rx Instructions .Route Qty: 1 RF: 0 omeprazole 20 mg Capsule,Delayed Release(Dr/Ec) 20 mg PO DAILY@0630 Qty: 30 RF: 0 benzonatate 100 mg Capsule 100 mg PO TID PRN (Reason: Cough) Qty: 30 RF: 0 ibuprofen 800 mg tablet 800 mg PO Q8H PRN (Reason: pain) Qty: 14 RF: 0 acetaminophen [Tylenol Extra Strength] 500 mg tablet 1,000 mg PO QID PRN (Reason: fever or pain) Qty: 14 RF: 0 letrozole 2.5 mg tablet 2.5 mg PO DAILY RF: 0 trazodone 50 mg tablet 100 mg PO BEDTIME RF: 0 lamotrigine 25 mg tablet 25 mg PO DAILY RF: 0 (DME) pen needle, diabetic [Comfort EZ Pen [place]] 31 gauge x 5/16 needle See Rx Instructions .ROUTE .MEDSUPPLY Qty: 200 RF: 11 (DME) lancets [FreeStyle Lancets] 28 gauge misc See Rx Instructions .ROUTE .MEDSUPPLY Qty: 200 RF: 11 Tresiba FlexTouch U-100 100 unit/mL (3 mL) insulin pen 46 unit subcut DAILY 30 Days Qty: 15 RF: 3 insulin aspart U-100 [Novolog Flexpen U-100 Insulin] 100 unit/mL (3 mL) in sulin pen 4 unit subcut TIDWMEAL Qty: 15 RF: 2 Trulicity 0.75 mg/0.5 mL pen injector 0.75 mg subcut QWEEK Qty: 6 RF: 1 cholecalciferol (vitamin D3) 25 mcg (1,000 unit) tablet 25 mcg PO DAILY RF: 0 trazodone 100 mg tablet 100 mg PO BEDTIME RF: 0 pregabalin [Lyrica] 100 mg capsule 100 mg PO BID Qty: 60 RF: 5 pregabalin [Lyrica] 200 mg capsule 200 mg PO BEDTIME Qty: 30 RF: 5 Referrals: Physician,Unknown J [Primary Care Provider] - 2 days (if not better) [facility] Past Medical History Attestation statement: The following information was validated with the patient. Medical History Allergic rhinitis Allergic rhinitis Allergic rhinitis Anxiety Asthma Asthma Bipolar 1 disorder, depressed Bloody diarrhea Breast cancer Bronchial asthma Colitis COPD (chronic obstructive pulmonary disease) Cough Depression Diabetes type 2, uncontrolled Dyslipidemia Fibromyalgia Hyperlipidemia LDL goal <100 Hyperparathyroidism Hypertension Hypothyroid Hypothyroid IDDM (insulin dependent diabetes mellitus) IDDM (insulin dependent diabetes mellitus) Infiltrating ductal carcinoma of left breast, stage 2 Insomnia Irritable bowel Osteoporosis PAD (peripheral artery disease) Reactive airways dysfunction syndrome Restrictive airway disease Rheumatoid arthritis Seropositive rheumatoid arthritis T2DM (type 2 diabetes mellitus) Thyroid nodule Vitamin D deficiency Surgical History H/O: hysterectomy History of bunionectomy of both great toes History of colonoscopy History of esophagogastroduodenoscopy (EGD) History of lumpectomy of left breast History of pubovaginal sling History of tubal ligation Family History Family History Mother Diabetes HTN (hypertension) Uterus cancer Malignant tumor of head Breast cancer Father Diabetes HTN (hypertension) CVD (cardiovascular disease) Heart problem Maternal Aunt Breast cancer Brother Myocardial infarction S/P CABG x 4 Family/Other FH: mental illness Other Mental health disorder Social History Social History Household Members: Family Household Members Other:: sister Housing: Apartment Do you presently have visiting nurse or other home services: Yes (sister=manager payroll) Alcohol intake: never Patient Tobacco Use Status: Current everyday Tobacco user Tobacco use type: Cigarette Cigarettes Per Day: 2 Years Smoked: 46 e-Cigarette/Vaping Use: Never Used Second Hand Smoke Exposure: No Advance Directives: Yes Advance Directives on File: Yes Advance Directives Date on File: 03/09/21 service: No Current occupational status: disabled Current occupation: rt handed
[2021-09-12 21:39] LABS: Lipase 32 U/L (8-78)
[2021-09-12] MEDS: Morphine Sulfate 4 MG/ML CARTRIDGE IVPUSH (22:02)
[2021-09-12] MEDS: 0.9 % Sodium Chloride 1,000 ML 999 ML IVCONT (22:02)
[2021-09-12] MEDS: ondansetron HCL 4 MG/2 ML VIAL IVPUSH (22:03)
[2021-09-12 22:14] LABS: Lactic Acid 0.9 mmol/L (0.5-2.0)
[2021-09-12] MEDS: Lactulose 20 GM/30 ML SOLUTION PO (22:36)
--- NOTE | 2021-09-12 22:51 | PC.NURSE ---
Pt alert and oriented x4, calm and cooperative. Pt states abd pain has improved with meds given. Pt denies N/V. Pt educated on dc teaching. IV removed. Vitals stable. Pt being picked up by sister
== END 2021-09-12 22:51 | disposition home or self-care (01) ==
PROVIDERS: Emergency Provider Emergency Medicine
DX: K59.00 Constipation, unspecified (principal); R10.32 Left lower quadrant pain; E78.5 Hyperlipidemia, unspecified; E11.9 Type 2 diabetes mellitus without complications; Z79.4 Long term (current) use of insulin
CPT/HCPCS: 36415; 74176; 80053; 81001; 83605; 83690; 85025; 87086; 96361; 96374; 96375; 99283; 99284; J2270; J2405

== ENCOUNTER 2021-09-13 07:21 | Outpatient (REF) | payer MEDICARE, MEDICAID, SELFPAY | END 2021-09-13 07:22 | disposition home or self-care (01) | LOC: HO.HOSX 07:21 | PROVIDERS: Visit Provider Physician Assistant | DX: Z13.89 Encounter for screening for other disorder (principal) ==

== ENCOUNTER → 2021-09-19 14:30 | Outpatient (BNVA) | payer MEDICARE, MEDICAID, SELFPAY | PROVIDERS: PCP Internal Medicine; Visit Provider Nurse Practitioner Family | DX: M05.9 Rheumatoid arthritis with rheumatoid factor, unspecified (principal); M79.7 Fibromyalgia | CPT/HCPCS: 99212 ==

== ENCOUNTER 2021-09-28 14:18 | Outpatient (REF) | payer MEDICARE, MEDICAID, SELFPAY ==
--- NOTE | ~2021-09-28 | MM_ITS ---
EXAMINATION: MM DIAGNOSTIC DIGITAL BREAST TOMOSYNTHESIS, BILATERAL US DIAGNOSTIC ULTRASOUND BREAST, RIGHT CLINICAL INFORMATION: Right breast pain upper outer quadrant. History left lumpectomy for invasive breast cancer 11/26/2018. Due for yearly. COMPARISON: Mammography: 11/22/2020, 11/03/2019, 11/07/2018, 10/29/2018, 10/24/2018 TECHNIQUE: Digital breast tomosynthesis is performed in both the craniocaudal and mediolateral oblique views along with computer-aided detection (CAD). Synthesized 2D images are generated from the tomosynthesis. Additional magnification left CC and magnification left ML views are obtained. Ultrasound right breast is targeted to the area of clinical concern 9:00 to 12:00 position. Grayscale imaging and color Doppler are performed without and with harmonics. FINDINGS: There are scattered areas of fibroglandular density (ACR BI-RADS breast composition Category b). The right breast shows no significant change from prior studies. There is no skin thickening or coarsening of the Zacarias's ligaments. There is no mass or architectural abnormality or developing density. No abnormal calcifications. The left breast has post therapy changes with mild reduced breast size and mild scarring. Skin thickening is decreased since 11/03/2019. Ultrasound right breast demonstrates no cystic or solid mass or architectural abnormality. No focal duct ectasia. No skin thickening or edema tracking in soft tissue planes. Results are discussed with the patient at time of visit. MM/MM tomosynthesis diagnostic BI IMPRESSION: 1. No mammographic evidence of malignancy or inflammatory changes. 2. Post therapy changes left breast. 3. Unremarkable targeted right breast ultrasound.. ASSESSMENT: BI-RADS 2: Benign RECOMMENDATION: 1. Patient's right breast pain should be managed based on the clinical impression. 2. Otherwise, annual bilateral mammography. This patient's information was entered into a reminder system with a target due date for their next mammogram.
== END 2021-09-28 14:19 | disposition home or self-care (01) ==
LOC: HO.MAMMO 14:18
PROVIDERS: PCP Internal Medicine; Visit Provider Internal Medicine
DX: N64.4 Mastodynia (principal)
CPT/HCPCS: 76642; 77062; 77066

== ENCOUNTER 2021-11-01 08:41 | Outpatient (REF) | payer MEDICARE, MEDICAID, SELFPAY ==
[2021-11-01 10:59] LABS: Alanine Aminotransferase 25 U/L (0-31); Albumin Level 4.1 g/dL (3.5-5.0); Alkaline Phosphatase 64 U/L (39-117); Anion Gap 13 (12-20); Aspartate Amino Transferase 21 U/L (5-31); Bilirubin Total 0.4 mg/dL (0.0-1.0); Blood Urea Nitrogen 12 mg/dL (9-16); C Reactive Protein 0.43 mg/dL (< or = 0.50); Calcium 9.6 mg/dL (8.4-10.2); Carbon Dioxide 24 mmol/L (22-29); Chloride 106 mmol/L (96-108); Estimated Glomerular Filt Rate > 60; Glucose Random 155 mg/dL (60-115); Phosphorus 3.2 mg/dL (2.7-4.5); Potassium 4.8 mmol/L (3.3-5.1); Sodium 138 mmol/L (135-145); Total Protein 7.1 g/dL (6.5-8.0)
[2021-11-01 11:06] LABS: Thyroid Stimulating Hormone 0.82 uIU/mL (0.32-4.0); Vitamin D 25-OH Total 31.4 ng/mL (>30)
[2021-11-01 11:12] LABS: Erythrocyte Sedimentation Rate 9 MM/HR (0-20)
[2021-11-03 16:31] LABS: Calcium (PTHI) 8.7 mg/dL (8.6-10.4); PTHI 30 pg/mL (14-64)
[2021-11-08 22:15] LABS: Alkaline Phosphatase Bone 11.1 mcg/L (5.6-29.0)
[2021-11-10 19:26] LABS: N-Telopeptide 41 (see note); NTXCreaRU 192 mg/dL (20-275)
== END 2021-11-01 08:42 | disposition home or self-care (01) ==
LOC: HO.LAB 08:41
PROVIDERS: Nurse Practitioner Family; PCP Internal Medicine; Visit Provider Internal Medicine
DX: E11.9 Type 2 diabetes mellitus without complications (principal); M81.0 Age-related osteoporosis without current pathological fracture; M85.839 Other specified disorders of bone density and structure, unspecified forearm; M05.9 Rheumatoid arthritis with rheumatoid factor, unspecified; E55.9 Vitamin D deficiency, unspecified; C50.912 Malignant neoplasm of unspecified site of left female breast; Z17.0 Estrogen receptor positive status [ER+]; E21.3 Hyperparathyroidism, unspecified; J30.81 Allergic rhinitis due to animal (cat) (dog) hair and dander; F17.210 Nicotine dependence, cigarettes, uncomplicated; F31.9 Bipolar disorder, unspecified; Z92.3 Personal history of irradiation; Z88.8 Allergy status to other drugs, medicaments and biological substances; Z88.3 Allergy status to other anti-infective agents; Z91.013 Allergy to seafood; Z79.890 Hormone replacement therapy; Z79.4 Long term (current) use of insulin; Z79.899 Other long term (current) drug therapy
CPT/HCPCS: 36415; 80053; 82306; 82523; 83970; 84075; 84100; 84439; 84443; 85652; 86140; 99212

== ENCOUNTER 2021-11-25 12:19 | Emergency (ER) | payer MEDICARE, MEDICAID, SELFPAY ==
--- NOTE | ~2021-11-25 | XR_ITS ---
EXAMINATION: XR CHEST CLINICAL INFORMATION: Cough with shortness of breath and sputum production. Covid exposure. COMPARISON: Chest x-ray 03/09/2021 TECHNIQUE: 2 views of the chest were obtained. FINDINGS: Cardiac silhouette is normal in size. The lungs are well aerated. There is no lobar consolidation. No pleural effusion or pneumothorax. No acute osseous abnormality. XR/XR chest 2V IMPRESSION: Stable examination demonstrating no acute pulmonary pathology.
[2021-11-25 12:25] VITALS: BP 130/87; PULSE 100; RESP 20; TEMP 36.8; O2SAT 95; BMI 26.5
[2021-11-25 12:47] LABS: COVID-19 Test Negative (Negative)
--- NOTE | 2021-11-25 14:34 | ED_ITS ---
HPI - URI/Sore Throat General Chief Complaint: General Medical Stated Complaint: flu like Time Seen by Provider: 11/25/21 14:02 Source: patient Mode of arrival: ambulatory Limitations: no limitations History of Present Illness HPI Narrative: 61-year-old female presenting to the ED with COVID like complaints and a COVID exposure over the past week. She reports that she is vaccinated with 2 shots of the COVID vaccine. She reports that she lives with her sister and her son who just tested positive within the past 5 days for COVID. She reports that her symptoms are body aches, chills, fatigue, malaise, sore throat and a cough with shortness of breath when she is coughing. Denies any fevers, dizziness, headaches, neck pain/stiffness, trouble swallowing or breathing, chest pain, paresthesias, dyspnea on exertion, orthopnea, palpitations, nausea/vomiting/diarrhea constipation, abdominal pain, back pain, rashes, recent travel or any other symptoms complaints or concerns at this time. MD elicited complaint: cough and sore throat Onset (ago): day(s) (Past few days worse today) Consistency: constant and progressively worsening Severity: mild Description of mucous: clear, watery and yellow Able to tolerate fluids by mouth: Yes Exacerbating factors: swallowing and deep breaths Relieving factors: nothing Context: sick contacts (Sister and son who she lives with tested positive for COVID in the past 5 days) Associated symptoms: chills, myalgias, rhinorrhea, nasal congestion, sore throat, cough and shortness of breath Treatments prior to arrival: none Related Data Home Medications Medication Instructions Recorded Confirmed letrozole 2.5 mg tablet 2.5 mg PO DAILY 08/24/20 11/08/21 cholecalciferol (vitamin D3) 25 25 mcg PO DAILY 08/08/21 11/08/21 mcg (1,000 unit) tablet Previous Rx's Medication Instructions Recorded montelukast 10 mg tablet 10 mg PO BEDTIME #90 tab 11/28/20 omeprazole 20 mg capsule,delayed 20 mg PO DAILY@0630 #30 cap 03/12/21 release lancets 28 gauge (FreeStyle #200 ea 03/21/21 Lancets) pen needle, diabetic 31 gauge x #200 ea 03/21/2104/02 (Comfort EZ Pen Gabbs) blood sugar diagnostic (FreeStyle #200 ea 04/06/21 Test) Advair HFA 230 mcg-21 2 puff PO BID #12 g NS 05/15/21 mcg/actuation aerosol inhaler (fluticasone propion-salmeterol) dulaglutide 0.75 mg/0.5 mL 0.75 mg (0.5 mL) SUBCUT QWEEK #6 ml 05/24/21 subcutaneous pen injector (Trulicity) insulin aspart U-100 100 unit/mL 4 unit (0.04 mL) SUBCUT TIDWMEAL 05/24/21 (3 mL) subcutaneous pen (Novolog #15 ml Flexpen U-100 Insulin aspart) acetaminophen 500 mg tablet 1,000 mg PO QID PRN #14 tab 06/05/21 (Tylenol Extra Strength) ibuprofen 800 mg tablet 800 mg PO Q8H PRN #14 tab 06/05/21 tizanidine 2 mg tablet 2 mg PO BEDTIME PRN #30 tab 06/13/21 albuterol sulfate 90 mcg/actuation 2 puff INHALATION Q4H PRN #8.5 g 07/26/21 aerosol inhaler (Ventolin HFA) ipratropium 0.5 mg-albuterol 3 mg 3 ml INHALATION Q6H PRN #180 ml 08/04/21 (2.5 mg base)/3 mL nebulization soln flash glucose sensor (FreeStyle #1 ea 08/22/21 Toby 2 Sensor) ondansetron 4 mg disintegrating 4 mg PO Q8H PRN #20 tab 09/12/21 tablet sennosides 8.6 mg capsule (senna) 8.6 mg PO BEDTIME PRN #30 cap 09/12/21 lamotrigine 25 mg tablet 25 mg PO BID 90 Days #180 tab 09/18/21 pregabalin 150 mg capsule (Lyrica) 150 mg PO DAILY #30 cap 09/20/21 trazodone 100 mg tablet 100 mg PO BEDTIME 90 Days #90 tab 10/19/21 letrozole 2.5 mg tablet 2.5 mg PO DAILY #90 tab 11/08/21 varenicline 1 mg tablet 1 mg PO BID 28 Days #56 tab 11/08/21 abatacept 125 mg/mL subcutaneous 125 mg SUBCUT QWEEK #4 ml 11/21/21 auto-injector (Orencia ClickJect) insulin degludec 100 unit/mL (3 46 unit (0.46 mL) SUBCUT DAILY 30 11/22/21 mL) subcutaneous pen (Tresiba Days #15 ml FlexTouch U-100 insulin) pregabalin 200 mg capsule (Lyrica) 200 mg PO BEDTIME #30 cap 11/22/21 albuterol sulfate 90 mcg/actuation 1 inh INHALATION QID PRN #8.5 g 11/25/21 aerosol inhaler amoxicillin 875 mg-potassium 1 tab PO BID 10 Days #20 tab 11/25/21 clavulanate 125 mg tablet (Augmentin) codeine 10 mg-guaifenesin 100 mg/5 5 ml PO Q6H PRN #120 ml 11/25/21 mL oral liquid (Guaifenesin AC) prednisone 20 mg tablet 40 mg PO DAILY 5 Days #10 tab 11/25/21 Allergies Allergy/AdvReac Type Severity Reaction Status Date / Time dog dander [DOGS] Allergy Intermediate Respiratory Verified 11/08/21 09:06 distress ibuprofen [Ibuprofen] Allergy Intermediate STOMACH Verified 11/08/21 09:06 UPSET, abdominal pain, nausea and vomiting shellfish derived Allergy Intermediate Hives Verified 11/08/21 09:06 etanercept [From Enbrel] AdvReac Intermediate Facial Verified 11/08/21 09:06 Swelling metformin AdvReac Intermediate diarrhea Verified 11/08/21 09:06 metronidazole [From FLAGYL] AdvReac Intermediate DIARRHEA Verified 11/08/21 09:06 prednisone AdvReac Intermediate hallucinations, Verified 11/08/21 09:06 higher than 20 Review of Systems Review of Systems: Constitutional : Positive chills/fatigue/malaise, No Weight loss, No Fever, No Night Sweats ENT/Mouth : Positive sore throat/nasal congestion/rhinorrhea, No Hearing loss, No Ear Pain, No Sinus Pain, No Hoarseness, No Swallowing Difficulty Eyes: No Eye Pain, No Swelling, No Redness, No Foreign Body, No Discharge, No Vision Changes Cardiovascular : No Chest Pain, positive SOB, No Dyspnea on Exertion, No Orthopnea, No Edema, No Palpitations Respiratory : Positive Cough, No Sputum, No Wheezing, No Smoke Exposure, No Dyspnea Gastrointestinal : No Nausea, No Vomiting, No Diarrhea, No Constipation, No abdominal Pain, No Hematochezia, No Melena Genitourinary : no irregular bleeding, No Dysuria, No Urinary Frequency, No Hematuria, No Urinary Incontinence, No Urgency, No Flank Pain, No Urinary Flow Changes, No Hesitancy Musculoskeletal : No joint pain, positive Myalgias, No Joint Swelling Skin : No Skin Lesions, No rash Neuro : No Weakness, No Numbness, No Paresthesias, No Loss of Consciousness, No Dizziness, No Headache Psych : No Anxiety/Panic, No Depression, No SI/HI/AH/VH, No Social Issues, Heme/Lymph: No Bruising, No Bleeding,No Lymphadenopathy Endocrine : No Polyuria, No Polydipsia, No Temperature Intolerance Yes all other systems are reviewed and are negative [facility] Past Medical History Attestation statement: The following information was validated with the patient. Medical History Allergic rhinitis Allergic rhinitis Allergic rhinitis Anxiety Asthma Asthma Bipolar 1 disorder, depressed Bloody diarrhea Breast cancer Breast pain, right Bronchial asthma Colitis COPD (chronic obstructive pulmonary disease) Cough Depression Diabetes type 2, uncontrolled Dyslipidemia Fibromyalgia Hyperlipidemia LDL goal <100 Hyperparathyroidism Hypertension Hypothyroid Hypothyroid IDDM (insulin dependent diabetes mellitus) IDDM (insulin dependent diabetes mellitus) Infiltrating ductal carcinoma of left breast, stage 2 Insomnia Irritable bowel Osteoporosis PAD (peripheral artery disease) Rash Reactive airways dysfunction syndrome Restrictive airway disease Rheumatoid arthritis Seropositive rheumatoid arthritis T2DM (type 2 diabetes mellitus) Thyroid nodule Vitamin D deficiency Surgical History H/O: hysterectomy History of bunionectomy of both great toes History of colonoscopy History of esophagogastroduodenoscopy (EGD) History of lumpectomy of left breast History of pubovaginal sling History of tubal ligation Family History Family History Mother Diabetes HTN (hypertension) Uterus cancer Malignant tumor of head Breast cancer Father Diabetes HTN (hypertension) CVD (cardiovascular disease) Heart problem Maternal Aunt Breast cancer Brother Myocardial infarction S/P CABG x 4 Family/Other FH: mental illness Other Mental health disorder Social History Social History Household Members: Family Household Members Other:: sister Housing: Apartment Do you presently have visiting nurse or other home services: Yes (sister=assembly machine tool setter) Alcohol intake: never Patient Tobacco Use Status: Former Tobacco user Quit Date: 08/18/2021 Tobacco use type: Cigarette Cigarettes Per Day: 2 Years Smoked: 46 e-Cigarette/Vaping Use: Currently Using Second Hand Smoke Exposure: No Advance Directives: Yes Advance Directives on File: Yes Advance Directives Date on File: 03/09/21 service: No Current occupational status: disabled Current occupation: rt handed Physical Exam Vital Signs: Vital Signs: Last Vital Signs Temp 98.3 F 11/25/21 12:25 Pulse 100 11/25/21 12:25 Resp 20 11/25/21 12:25 BP 130/87 11/25/21 12:25 Pulse Ox 95 11/25/21 12:25 BMI result Body Mass Index 26.5 vital signs have been reviewed as normal and appeared to be correct. Blood pressure normal. Heart rate normal. Respiration rate normal. Temperature normal. Oxygen saturation normal. Appearance: Alert. Oriented X3. No acute distress. Head: Normal external exam. Normocephalic. Atraumatic. Eyes: PERRLA. EOMI. Conjunctiva and sclera normal. Eyelids normal. ENT: EAC normal. TM's Normal. Pharynx normal. Uvula midline. Moist mucous membranes. No trismus noted. No drooling noted. No muffled voice noted. Neck: Normal inspection. Neck supple. FROM. No adenopathy. Thyroid Normal. No meningeal signs. No neck mass noted. CVS: Normal heart rate and rhythm. Heart sound normal. Pulses normal throughout. No murmurs/rales/gallops. Respiratory: No respiratory distress. Painless inspiration. Breath sounds normal. No wheezes/rales/rhonchi noted. Chest nontender. No accessory muscle usage noted or decreased air movement noted. Abdomen: Soft and nontender. Bowel sounds normal in all 4 quadrants. No distention noted. No organomegaly noted. No visible injury noted. Back: No CVA tenderness. Full range of motion noted. No rashes/les ion/induration/fluctuance or signs of infection noted. Skin: Skin warm and dry. Normal skin color. Normal skin turgor. No rashes/lesions/lacerations noted. Extremities: No lower extremity edema. No calf tenderness is noted. Extremities exhibit normal range of motion. Extremities nontender. Neuro: Oriented X 3. No motor deficit. No sensory deficit. Reflexes normal. Normal steady gait. No focal neuro deficits noted. Vascular: + radial pulses/+ 2 distal pedal pulses/+2 dorsalis pedis b/l. Normal cap refill. No cyanosis noted to upper extremity nails and lower extremity toes nails. Course Course Course Narrative: 61-year-old female presenting to the ED with COVID like complaints and a COVID exposure over the past week. She reports that she is vaccinated with 2 shots of the COVID vaccine. She reports that she lives with her sister and her son who just tested positive within the past 5 days for COVID. She reports that her symptoms are body aches, chills, fatigue, malaise, sore throat and a cough with shortness of breath when she is coughing. Denies any fevers, dizziness, headaches, neck pain/stiffness, trouble swallowing or breathing, chest pain, paresthesias, dyspnea on exertion, orthopnea, palpitations, nausea/vomiting/diarrhea constipation, abdominal pain, back pain, rashes, recent travel or any other symptoms complaints or concerns at this time. Patient negative for COVID. Will obtain a chest x-ray. If negative will DC home with antibiotics for possible bronchitis infection instructions to self isolate per CDC guidelines due to positive COVID exposure in her household within the past 5 days. Along with instructions return if any new or worsening symptoms to monitor her oxygen levels and to follow-up with her primary care provider. Patient understands agrees to this plan. MDM - URI/Sore Throat Medical Records Attestation: I reviewed the patient's medical records. Lab Data Attestation: I reviewed the patient's lab results. Labs: Lab Results 11/25/21 Range/Units 12:27 COVID-19 ([facility]) Negative (Negative) COVID-19 Clin Com See Note Imaging Data Chest x-ray: Attestation: I personally reviewed and interpreted this imaging study as follows: Radiologist's impression: FINDINGS: Cardiac silhouette is normal in size. The lungs are well aerated. There is no lobar consolidation. No pleural effusion or pneumothorax. No acute osseous abnormality. XR/XR chest 2V IMPRESSION: Stable examination demonstrating no acute pulmonary pathology. Discharge Plan Discharge Clinical Impression: Bronchitis, Close exposure to 2019-nCoV Patient Disposition: Home, Self-Care Instructions: Acute Bronchitis (ED), COVID-19 (Coronavirus Disease 2019) (ED) Additional Instructions: Please follow CDC guidelines for COVID exposure guidelines for quarantine. Return if any new or worsening symptoms. Assume that you are positive for COVID. Prescriptions: New amoxicillin-pot clavulanate [Augmentin] 875-125 mg tablet 1 tab PO BID 10 Days Qty: 20 RF: 0 prednisone 20 mg tablet 40 mg PO DAILY 5 Days Qty: 10 RF: 0 codeine-guaifenesin [Guaifenesin AC] 10-100 mg/5 mL liquid 5 ml PO Q6H PRN (Reason: cold symptoms) Qty: 120 RF: 0 albuterol sulfate 90 mcg/actuation HFA aerosol inhaler 1 inh inhalation QID PRN (Reason: shortness of breath or wheezing) Qty: 8.5 RF: 0 No Action montelukast 10 mg tablet 10 mg PO BEDTIME Qty: 90 RF: 1 (DME) FreeStyle Test Strip See Rx Instructions .ROUTE .MEDSUPPLY Qty: 200 RF: 11 Advair HFA 230-21 mcg/actuation HFA aerosol inhaler 2 puff PO BID Qty: 12 RF: 3 tizanidine 2 mg tablet 2 mg PO BEDTIME PRN (Reason: muscle spasm) Qty: 30 RF: 5 albuterol sulfate [Ventolin HFA] 90 mcg/actuation HFA aerosol inhaler 2 puff inhalation Q4H PRN (Reason: shortness of breath or wheezing) Qty: 8.5 RF: 2 ipratropium-albuterol 0.5 mg-3 mg(2.5 mg base)/3 mL solution for nebulization 3 ml inhalation Q6H PRN (Reason: for wheezing) Qty: 180 RF: 2 (DME) FreeStyle Toby 2 Sensor Kit See Rx Instructions .Route Qty: 1 RF: 0 trazodone 100 mg tablet 100 mg PO BEDTIME 90 Days Qty: 90 RF: 0 varenicline 1 mg tablet 1 mg PO BID 28 Days Qty: 56 RF: 1 Orencia ClickJect 125 mg/mL auto-injector 125 mg subcut QWEEK Qty: 4 RF: 3 pregabalin [Lyrica] 200 mg capsule 200 mg PO BEDTIME Qty: 30 RF: 5 Tresiba FlexTouch U-100 100 unit/mL (3 mL) insulin pen 46 unit subcut DAILY 30 Days Qty: 15 RF: 3 letrozole 2.5 mg Tablet 2.5 mg PO DAILY Qty: 90 RF: 4 omeprazole 20 mg Capsule,Delayed Release(Dr/Ec) 20 mg PO DAILY@0630 Qty: 30 RF: 0 ibuprofen 800 mg tablet 800 mg PO Q8H PRN (Reason: pain) Qty: 14 RF: 0 acetaminophen [Tylenol Extra Strength] 500 mg tablet 1,000 mg PO QID PRN (Reason: fever or pain) Qty: 14 RF: 0 ondansetron 4 mg tablet,disintegrating 4 mg PO Q8H PRN (Reason: nausea and vomiting) Qty: 20 RF: 0 senna 8.6 mg capsule 8.6 mg PO BEDTIME PRN (Reason: constipation) Qty: 30 RF: 0 letrozole 2.5 mg tablet 2.5 mg PO DAILY RF: 0 (DME) pen needle, diabetic [Comfort EZ Pen Gabbs] 31 gauge x 5/16 needle See Rx Instructions .ROUTE .MEDSUPPLY Qty: 200 RF: 11 (DME) lancets [FreeStyle Lancets] 28 gauge misc See Rx Instructions .ROUTE .MEDSUPPLY Qty: 200 RF: 11 lamotrigine 25 mg tablet 25 mg PO BID 90 Days Qty: 180 RF: 1 insulin aspart U-100 [Novolog Flexpen U-100 Insulin] 100 unit/mL (3 mL) insulin pen 4 unit subcut TIDWMEAL Qty: 15 RF: 2 Trulicity 0.75 mg/0.5 mL pen injector 0.75 mg subcut QWEEK Qty: 6 RF: 1 cholecalciferol (vitamin D3) 25 mcg (1,000 unit) tablet 25 mcg PO DAILY RF: 0 pregabalin [Lyrica] 150 mg capsule 150 mg PO DAILY Qty: 30 RF: 4 Referrals: Adela Gipson MD [Primary Care Provider] - 2 days Stand Alone Forms: Work/School Release Print Language: Swedish
== END 2021-11-25 15:25 | disposition home or self-care (01) ==
PROVIDERS: Emergency Provider Internal Medicine; PCP Internal Medicine
DX: J40 Bronchitis, not specified as acute or chronic (principal); Z20.822 Contact with and (suspected) exposure to COVID-19; E11.9 Type 2 diabetes mellitus without complications; I10 Essential (primary) hypertension; E78.5 Hyperlipidemia, unspecified; Z79.4 Long term (current) use of insulin
CPT/HCPCS: 71046; 87635; 99283

== ENCOUNTER → 2021-12-06 09:42 | Outpatient (BNVA) | payer MEDICARE, MEDICAID, SELFPAY | PROVIDERS: PCP Internal Medicine; Visit Provider Internal Medicine | DX: J44.9 Chronic obstructive pulmonary disease, unspecified (principal); J30.9 Allergic rhinitis, unspecified; J68.3 Other acute and subacute respiratory conditions due to chemicals, gases, fumes and vapors | CPT/HCPCS: 99212 ==

== ENCOUNTER → 2021-12-15 10:21 | Outpatient (BNVA) | payer MEDICARE, MEDICAID, SELFPAY | PROVIDERS: PCP Internal Medicine; Visit Provider Nurse Practitioner Gerontology | DX: E11.65 Type 2 diabetes mellitus with hyperglycemia (principal); E78.5 Hyperlipidemia, unspecified; Z79.4 Long term (current) use of insulin | CPT/HCPCS: 82947; 83036; 99212 ==

== ENCOUNTER 2021-12-25 21:16 | Inpatient (IN) | payer MEDICARE, MEDICAID, SELFPAY ==
--- NOTE | 2021-12-25 | ECG_ITS ---
Test Reason : ELEVATED BP Blood Pressure : / mmHG Vent. Rate : 075 BPM Atrial Rate : 075 BPM P-R Int : 118 ms QRS Dur : 076 ms QT Int : 352 ms P-R-T Axes : 036 077 085 degrees QTc Int : 393 ms Normal sinus rhythm ST depression, consider subendocardial injury Abnormal ECG When compared with ECG of 23-MAY-2021 10:08, ST now depressed in Anterior leads Nonspecific T wave abnormality now evident in Inferior leads Referred By: Philip Martinez Electronically Signed By:Joseph Salmon
--- NOTE | ~2021-12-25 | CT_ITS ---
EXAMINATION: CT ANGIOGRAM CHEST CLINICAL INFORMATION: Chest/back pain with left arm weakness and question of aortic dissection COMPARISON. ON: Chest CT 11/25/2020 TECHNIQUE: Multiple axial images were obtained through the chest after the administration of 70 mL of Omnipaque 350 intravenous contrast. Extensive vascular post-processing including two-dimensional and three-dimensional reformatted images were created and reviewed on an independent workstation. This CT examination was performed using dose optimization techniques as appropriate, variously including the following: *Automated exposure control *Adjustment of mA and/or kV according to patient size (this includes techniques or standardized protocols for targeted exams where dose is matched to indication/reason for exam; i.e. extremities or head) *Use of iterative reconstruction technique DLP: 274 mGy-cm VASCULAR FINDINGS: The thoracic aorta appears normal. There is no evidence of aneurysm or dissection. A three-vessel branching pattern of the aortic arch is seen with widely patent right vessels. The small portion of the abdominal aorta visualized appears normal with patent celiac, SMA, [place] and bilateral renal arteries. Although not carried out for evaluation of the pulmonary arteries or pulmonary veins, they are extremely well seen and there is no evidence of pulmonary emboli detected. NONVASCULAR FINDINGS: LUNGS: The lungs are clear with no evidence of inflammation or worrisome nodules. Some 2 mm sized micronodules are unchanged. For example left lower lobe subpleural nodule (prior 6:312 compare 5:290). MEDIASTINUM: The mediastinum is normal. PLEURA: There is no pleural effusion. No pleural mass or thickening. AXILLA: No lymphadenopathy. UPPER ABDOMEN: Hepatic steatosis is present. OSSEOUS STRUCTURES: Mild degenerative changes present in the spine. No bony destructive lesions CT/CT angio chest aorta IMPRESSION: Negative study without evidence of aortic dissection or any other acute aortic syndrome. No pulmonary emboli are detected No worrisome lung mass is seen. If this patient undergoes annual chest CT screening for malignancy, this exam will more than suffice. Fleischner guidelines were followed.
--- NOTE | ~2021-12-25 | CT_ITS ---
EXAMINATION: CT HEAD WITHOUT CONTRAST CLINICAL INFORMATION: Left arm weakness for 2 days COMPARISON: 02/22/2017 TECHNIQUE: Contiguous axial imaging was performed from the skull base to vertex without intravenous administration of contrast. This CT examination was performed using dose optimization techniques as appropriate, variously including the following: *Automated exposure control *Adjustment of mA and/or kV according to patient size (this includes techniques or standardized protocols for targeted exams where dose is matched to indication/reason for exam; i.e. extremities or head) *Use of iterative reconstruction technique DLP: 719 mGy-cm FINDINGS: Focal region of loss of garvin-white differentiation is present in the left occipital lobe, new from 02/22/2017 though otherwise age-indeterminate. There is no evidence of acute intracranial hemorrhage. No abnormal mass effect or midline shift is seen. Garvin to white matter differentiation is otherwise well preserved. No extra-axial fluid collections are identified. The ventricles are normal in size. The osseous structures and soft tissues are normal. The mastoid air cells and visualized portions of the paranasal sinuses are well aerated. CT/CT head/brain wo con IMPRESSION: No acute intracranial hemorrhage. Focal region of loss of garvin-white differentiation in the left occipital lobe which is new since 02/22/2017 though otherwise age-indeterminate; acuity would be better assessed with MRI. This was discussed with Dr. Hill on 12/25/2021 11:51 PM.
[2021-12-25 21:20] VITALS: BP 209/114; PULSE 105; RESP 20; TEMP 36.3; O2SAT 98; BMI 27.2
[2021-12-25 21:43] LABS: MANUAL DIFF FLAG NO
[2021-12-25 21:45] LABS: Basophils Absolute Auto 0.1 X10*3/uL (0.0-0.2); Basophils Percent Auto 0.5 % (0-2); Eosinophils Absolute Auto 0.1 X10*3/uL (0.0-0.4); Hematocrit 42.4 % (37.0-47.0); Hemoglobin 14.3 g/dl (12.0-16.0); Imm Gran Abs Auto 0.03 X10*3/uL (0.00-0.03); Imm Gran Pct Auto 0.3 % (0.0-0.4); Mean Corpuscular HGB Conc 33.7 g/dl (31.0-35.0); Mean Corpuscular Hemoglobin 28.6 pg (27.0-33.0); Mean Corpuscular Volume 84.8 fL (80.0-98.0); Mean Platelet Volume 10.6 fL (9.4-12.3); Monocytes Absolute Auto 0.6 X10*3/uL (0.1-1.2); Monocytes Percent Auto 5.1 % (2-11); Neutrophils Absolute Auto 6.3 x10*3/uL (2.0-8.3); Neutrophils Percent Auto 57.1 % (45-73); Platelet Count 332 X10*3/uL (160-400); Red Cell Distribution Width 13.3 % (11.0-16.0)
[2021-12-25 22:00] VITALS: BP 178/90; PULSE 75; RESP 18; O2SAT 96
[2021-12-25 22:03] LABS: Anion Gap 12 (12-20); Blood Urea Nitrogen 10 mg/dL (9-16); Calcium 9.9 mg/dL (8.4-10.2); Carbon Dioxide 27 mmol/L (22-29); Chloride 105 mmol/L (96-108); Creatinine Clr Calc Pharmacy 54.1; Estimated Glomerular Filt Rate > 60; Glucose Random 192 mg/dL (60-115); Potassium 4.1 mmol/L (3.3-5.1); Sodium 140 mmol/L (135-145)
[2021-12-25 22:10] LABS: Troponin-I High Sensitivity 8.2 ng/L (<3.5-17.0)
[2021-12-25] MEDS: diphenhydrAMINE HCL 50 MG/ML VIAL 25 MG IVPUSH (22:43)
[2021-12-25] MEDS: Ketorolac Tromethamine 30 MG/ML VIAL 15 MG IVPUSH (22:43)
[2021-12-25] MEDS: Metoclopramide HCl 10 MG/2 ML VIAL IVPUSH (22:43)
--- NOTE | 2021-12-25 22:43 | ED.GENADULT ---
HPI - General Adult General Chief complaint: Headache Stated complaint: sever headache Bp: 224/114 Time Seen by Provider: 12/25/21 21:58 Source: patient Mode of arrival: ambulatory History of Present Illness HPI narrative: This is a 61-year-old female with multiple medical comorbidities who presents with complaints of headache for the past 2-3 days and was recently prescribed Fioricet but states that her headaches have not improved and they are not related with any visual/speech/auditory changes and she denies any extremity numbness/tingling/weakness other than the left upper extremity that she describes as somewhat weak although sensation has remained intact and she has not dropped any items due to the weakness. In addition, she states she is experiencing chest discomfort associated with jaw and neck discomfort. She was removed off of blood pressure medications approximately 1 year ago but notes that she has been hypertensive and denies any recent steroid use. She does describe recently being started on Trulicity. Related Data Previous Rx's Medication Instructions Recorded montelukast 10 mg tablet 10 mg PO BEDTIME #90 tab 11/28/20 omeprazole 20 mg capsule,delayed 20 mg PO DAILY@0630 #30 cap 03/12/21 release lancets 28 gauge (FreeStyle #200 ea 03/21/21 Lancets) pen needle, diabetic 31 gauge x #200 ea 03/21/2104/02 (Comfort EZ Pen [place]) blood sugar diagnostic (FreeStyle #200 ea 04/06/21 Test) Advair HFA 230 mcg-21 2 puff PO BID #12 g NS 05/15/21 mcg/actuation aerosol inhaler (fluticasone propion-salmeterol) acetaminophen 500 mg tablet 1,000 mg PO QID PRN #14 tab 06/05/21 (Tylenol Extra Strength) ibuprofen 800 mg tablet 800 mg PO Q8H PRN #14 tab 06/05/21 ipratropium 0.5 mg-albuterol 3 mg 3 ml INHALATION Q6H PRN #180 ml 08/04/21 (2.5 mg base)/3 mL nebulization soln flash glucose sensor (FreeStyle #1 ea 08/22/21 Toby 2 Sensor) ondansetron 4 mg disintegrating 4 mg PO Q8H PRN #20 tab 09/12/21 tablet sennosides 8.6 mg capsule (senna) 8.6 mg PO BEDTIME PRN #30 cap 09/12/21 lamotrigine 25 mg tablet 25 mg PO BID 90 Days #180 tab 09/18/21 pregabalin 150 mg capsule (Lyrica) 150 mg PO DAILY #30 cap 09/20/21 letrozole 2.5 mg tablet 2.5 mg PO DAILY #90 tab 11/08/21 abatacept 125 mg/mL subcutaneous 125 mg SUBCUT QWEEK #4 ml 11/21/21 auto-injector (Orencia ClickJect) insulin degludec 100 unit/mL (3 46 unit (0.46 mL) SUBCUT DAILY 30 11/22/21 mL) subcutaneous pen (Tresiba Days #15 ml FlexTouch U-100 insulin) pregabalin 200 mg capsule (Lyrica) 200 mg PO BEDTIME #30 cap 11/22/21 tizanidine 2 mg tablet 2 mg PO BEDTIME PRN #30 tab 12/06/21 varenicline 1 mg tablet 1 mg PO BID 28 Days #56 tab 12/07/21 dulaglutide 1.5 mg/0.5 mL 1.5 mg (0.5 mL) SUBCUT QWEEK 28 12/15/21 subcutaneous pen injector Days #2 ml (Trulicity) insulin aspart U-100 100 unit/mL 4 - 8 unit (0.04 - 0.08 mL) SUBCUT 12/15/21 (3 mL) subcutaneous pen (Novolog TIDWMEAL #15 ml Flexpen U-100 Insulin aspart) albuterol sulfate 90 mcg/actuation 1 inh INHALATION QID PRN #8.5 g 12/20/21 aerosol inhaler butalbital 50 mg-acetaminophen 325 1 cap PO Q4H PRN #14 cap 12/20/21 mg-caffeine 40 mg-codeine 30 mg cap cholecalciferol (vitamin D3) 25 25 mcg PO DAILY #90 tab 12/20/21 mcg (1,000 unit) tablet trazodone 100 mg tablet 100 mg PO BEDTIME 90 Days #90 tab 12/20/21 lisinopril 2.5 mg tablet 2.5 mg PO DAILY 90 Days #90 tab 12/22/21 Allergies Allergy/AdvReac Type Severity Reaction Status Date / Time dog dander [DOGS] Allergy Intermediate Respiratory Verified 02/07/22 21:20 distress ibuprofen [Ibuprofen] Allergy Intermediate STOMACH Verified 12/25/21 21:20 UPSET, abdominal pain, nausea and vomiting shellfish derived Allergy Intermediate Hives Verified 12/25/21 21:20 etanercept [From Enbrel] AdvReac Intermediate Facial Verified 12/25/21 21:20 Swelling metformin AdvReac Intermediate diarrhea Verified 12/25/21 21:20 metronidazole [From FLAGYL] AdvReac Intermediate DIARRHEA Verified 12/25/21 21:20 prednisone AdvReac Intermediate hallucinations, Verified 12/25/21 21:20 higher than 20 Review of Systems Review of Systems: Pertinent positives and negatives as stated in HPI 10 point review of systems is otherwise PMFSH Past Medical History Source: nursing notes reviewed Medical History Allergic rhinitis Allergic rhinitis Allergic rhinitis Anxiety Asthma Asthma Bipolar 1 disorder, depressed Bloody diarrhea Breast cancer Breast pain, right Bronchial asthma Colitis COPD (chronic obstructive pulmonary disease) Cough Depression Diabetes type 2, uncontrolled Dyslipidemia Fibromyalgia Hyperlipidemia LDL goal <100 Hyperparathyroidism Hypertension Hypothyroid Hypothyroid IDDM (insulin dependent diabetes mellitus) IDDM (insulin dependent diabetes mellitus) Infiltrating ductal carcinoma of left breast, stage 2 Insomnia Irritable bowel Osteoporosis PAD (peripheral artery disease) Rash Reactive airways dysfunction syndrome Restrictive airway disease Rheumatoid arthritis Seropositive rheumatoid arthritis T2DM (type 2 diabetes mellitus) Thyroid nodule Vitamin D deficiency Surgical History H/O: hysterectomy History of bunionectomy of both great toes History of colonoscopy History of esophagogastroduodenoscopy (EGD) History of lumpectomy of left breast History of pubovaginal sling History of tubal ligation Family History Family History Mother Diabetes HTN (hypertension) Uterus cancer Malignant tumor of head Breast cancer Father Diabetes HTN (hypertension) CVD (cardiovascular disease) Heart problem Maternal Aunt Breast cancer Brother Myocardial infarction S/P CABG x 4 Family/Other FH: mental illness Other Mental health disorder Social History Social History Household Members: Family Household Members Other:: sister Housing: Apartment Do you presently have visiting nurse or other home services: Yes (sister=vocational coordinator) Alcohol intake: never Patient Tobacco Use Status: Former Tobacco user Quit Date: 08/18/2021 Tobacco use type: Cigarette Cigarettes Per Day: 2 Years Smoked: 46 e-Cigarette/Vaping Use: Former Use Second Hand Smoke Exposure: No Advance Directives: Yes Advance Directives on File: Yes Advance Directives Date on File: 12/22/21 Patient : No service: No Current occupational status: disabled Current occupation: rt handed Cognitive needs: No Hearing needs: No Vision needs: No Physical Exam Vital Signs: Vital Signs: Last Vital Signs Temp 98.4 F 12/26/21 00:00 Pulse 75 12/26/21 00:00 Resp 18 12/26/21 00:00 BP 127/72 12/26/21 00:00 Pulse Ox 97 12/26/21 00:00 BMI result Body Mass Index 27.2 VITAL SIGNS: Reviewed. GENERAL: Well developed, well nourished, in no acute distress. HEAD: Normocephalic/atraumatic EYES: PERRLA, EOMI EARS: Ext canals without abnormality NOSE: Nares patent bilateral OROPHARYNX: no oral lesions noted, posterior pharynx clear NECK: Supple, no adenopathy LUNGS: Normal breath sounds. No adventitious sounds or accessory muscle use. SpO2<96> CARDIOVASCULAR: Regular rate and rhythm without noted murmurs, no JVD or lower extremity edema, no asymmetrical pulses appreciated ABDOMEN: Soft, non-tender, non-distended with bowel sounds. MUSCULOSKELETAL: No tenderness, deformities, or effusions noted on gross inspection. EXTREMITIES: No cyanosis, clubbing or edema. SKIN: Inspection of the skin reveals no rashes NEUROLOGIC: Alert and oriented x 4. Strength and sensation to light touch were grossly intact x 4, no facial asymmetry, no pronator drift, cranial nerves 2 through act. Course Course Course Narrative: This is a 61-year-old female history and clinical presentation most consistent with symptomatic hypertensive urgency. Will attempt to control blood pressure/headache and evaluate for any concerning medical conditions such as ischemic changes intracranially, any involvement of the aorta with patient complaints of chest/back pain as well as left arm weakness and radiation into the jaw. Patient is currently nonfocal and not within the window for any medications. Review of all investigations without acute findings other than the noted CT scan findings. On discussing the results with the patient at bedside she endorses that she did experience a TIA approximately 2 years ago. Patient states that her headache has significantly improved and this seems to have correlated well with blood pressure reduction. In addition, patient has received headache medication as well as 1 L of IV fluids. Detectable troponin likely secondary to patient's hypertension, but will repeat. I discussed the case with inpatient hospitalist who accepts admission. Patient will get MRI in the morning. Reevaluation(s) Reevaluation #1: [facility] called to states that there is an area of ischemic change at the left occipital lobe that although is questionably old it is new since comparison CT scan from 2017. Of note, this is not consistent with patient's current symptoms which are all left-sided in nature. Time: 23:55 Medical Decision Making Lab Data Result diagrams: 12/25/21 21:38 12/25/21 21:38 Labs: Lab Results 12/25/21 12/25/21 12/25/21 Range/Units 21:38 21:38 21:38 WBC 11.0 H (4.8-10.8) X10*3/uL RBC 5.00 (4.20-5.50) X10*6/uL Hgb 14.3 (12.0-16.0) g/dl Hct 42.4 (37.0-47.0) % MCV 84.8 (80.0-98.0) fL MCH 28.6 (27.0-33.0) pg MCHC 33.7 (31.0-35.0) g/dl RDW 13.3 (11.0-16.0) % Plt Count 332 (160-400) X10*3/uL MPV 10.6 (9.4-12.3) fL Immature Gran % (Auto) 0.3 (0.0-0.4) % Neut % (Auto) 57.1 (45-73) % Lymph % (Auto) 36.0 (20-40) % [place] % (Auto) 5.1 (2-11) % Eos % (Auto) 1.0 (0-4) % Baso % (Auto) 0.5 (0-2) % Lymph # (Auto) 4.0 (1.2-4.9) X10*3/uL [place] # (Auto) 0.6 (0.1-1.2) X10*3/uL Eos # (Auto) 0.1 (0.0-0.4) X10*3/uL Baso # (Auto) 0.1 (0.0-0.2) X10*3/uL Abs Immat Gran (auto) 0.03 (0.00-0.03) X10*3/uL Absolute Neuts (auto) 6.3 (2.0-8.3) x10*3/uL Absolute Nucleated RBC 0.000 (0.0-0.012) X10*3/uL Nucleated RBC % (auto) 0.0 (0.0-0.2) /100WBC Sodium 140 (135-145) mmol/L Potassium 4.1 (3.3-5.1) mmol/L Chloride 105 (96-108) mmol/L Carbon Dioxide 27 (22-29) mmol/L Anion Gap 12 (12-20) BUN 10 (9-16) mg/dL Creatinine 0.89 (0.5-1.4) mg/dL Estim Creat Clear Calc 54.1 Estimated GFR > 60 Random Glucose 192 H (60-115) mg/dL Calcium 9.9 (8.4-10.2) mg/dL Troponin I High Sens 8.2 (<3.5-17.0) ng/L ECG Data Attestation: I personally reviewed and interpreted this ECG as follows: Prior ECG tracings: available for review Interpretation: Normal sinus rhythm, HR-75, no STEMI, NM/QRS/QTC is within normal limits. Discharge Plan Discharge Clinical Impression: Hypertensive urgency, Left arm weakness, Chest pain Patient Disposition: Admitted As Inpatient Prescriptions: No Action montelukast 10 mg tablet 10 mg PO BEDTIME Qty: 90 1RF (DME) FreeStyle Test Strip See Rx Instructions .ROUTE .MEDSUPPLY Qty: 200 11RF Rx Instructions: Use 1 test strip five times a day Advair HFA 230-21 mcg/actuation HFA aerosol inhaler 2 puff PO BID Qty: 12 3RF ipratropium-albuterol 0.5 mg-3 mg(2.5 mg base)/3 mL solution for nebulization 3 ml inhalation Q6H PRN (Reason: for wheezing) Qty: 180 2RF (DME) FreeStyle Toby 2 Sensor Kit See Rx Instructions .Route Qty: 1 0RF Rx Instructions: As directed Orencia ClickJect 125 mg/mL auto-injector 125 mg subcut QWEEK Qty: 4 3RF pregabalin [Lyrica] 200 mg capsule 200 mg PO BEDTIME Qty: 30 5RF Tresiba FlexTouch U-100 100 unit/mL (3 mL) insulin pen 46 unit subcut DAILY 30 Days Qty: 15 3RF tizanidine 2 mg tablet 2 mg PO BEDTIME PRN (Reason: muscle spasm) Qty: 30 5RF varenicline 1 mg tablet 1 mg PO BID 28 Days Qty: 56 1RF cholecalciferol (vitamin D3) 25 mcg (1,000 unit) tablet 25 mcg PO DAILY Qty: 90 1RF trazodone 100 mg tablet 100 mg PO BEDTIME 90 Days Qty: 90 0RF udytturxon-zdmvzzwwxf-vch-cod [id number] mg capsule 1 cap PO Q4H PRN (Reason: pain) Qty: 14 0RF lisinopril 2.5 mg tablet 2.5 mg PO DAILY 90 Days Qty: 90 0RF letrozole 2.5 mg Tablet 2.5 mg PO DAILY Qty: 90 4RF omeprazole 20 mg Capsule,Delayed Release(Dr/Ec) 20 mg PO DAILY@0630 Qty: 30 0RF ibuprofen 800 mg tablet 800 mg PO Q8H PRN (Reason: pain) Qty: 14 0RF acetaminophen [Tylenol Extra Strength] 500 mg tablet 1,000 mg PO QID PRN (Reason: fever or pain) Qty: 14 0RF ondansetron 4 mg tablet,disintegrating 4 mg PO Q8H PRN (Reason: nausea and vomiting) Qty: 20 0RF senna 8.6 mg capsule 8.6 mg PO BEDTIME PRN (Reason: constipation) Qty: 30 0RF (DME) pen needle, diabetic [Comfort EZ Pen [place]] 31 gauge x 5/16 needle See Rx Instructions .ROUTE .MEDSUPPLY Qty: 200 11RF Rx Instructions: Use 1 pen needle 6 times a day (DME) lancets [FreeStyle Lancets] 28 gauge misc See Rx Instructions .ROUTE .MEDSUPPLY Qty: 200 11RF Rx Instructions: Use 1 lancet five times a day lamotrigine 25 mg tablet 25 mg PO BID 90 Days Qty: 180 1RF albuterol sulfate 90 mcg/actuation HFA aerosol inhaler 1 inh inhalation QID PRN (Reason: shortness of breath or wheezing) Qty: 8.5 0RF Rx Instructions: please fill and release for 1 time emergency, patient lost her other one pregabalin [Lyrica] 150 mg capsule 150 mg PO DAILY Qty: 30 4RF Trulicity 1.5 mg/0.5 mL pen injector 1.5 mg subcut QWEEK 28 Days Qty: 2 6RF insulin aspart U-100 [Novolog Flexpen U-100 Insulin] 100 unit/mL (3 mL) insulin pen 4 - 8 unit subcut TIDWMEAL Qty: 15 2RF
[2021-12-25] MEDS: 0.9 % Sodium Chloride 1,000 ML 999 ML IV (22:45)
[2021-12-25] MEDS: iohexoL 350 MG/ML 100 ML INFUS..BTL 70 ML IV (23:40)
[2021-12-26] VITALS (10 sets, daily range): BP systolic 103–147; BP diastolic 64–79; PULSE 67–87; RESP 16–19; TEMP 36.7–36.9; O2SAT 97–98
--- NOTE | 2021-12-26 | ECG_ITS ---
Test Reason : chest pain Blood Pressure : / mmHG Vent. Rate : 075 BPM Atrial Rate : 075 BPM P-R Int : 140 ms QRS Dur : 080 ms QT Int : 394 ms P-R-T Axes : 041 074 081 degrees QTc Int : 439 ms Normal sinus rhythm Normal ECG When compared with ECG of 26-DEC-2021 08:46, No significant change was found Referred By: Nano Raphael Electronically Signed By:Joseph Salmon
--- NOTE | 2021-12-26 | ECG_ITS ---
Test Reason : HEADACHES Blood Pressure : / mmHG Vent. Rate : 068 BPM Atrial Rate : 068 BPM P-R Int : 132 ms QRS Dur : 082 ms QT Int : 424 ms P-R-T Axes : 041 075 076 degrees QTc Int : 450 ms Normal sinus rhythm Normal ECG When compared with ECG of 26-DEC-2021 02:49, No significant change was found Referred By: Generic ED Physician Electronically Signed By:Joseph Salmon
[2021-12-26 01:07] LABS: COVID-19 Test Negative (Negative)
--- NOTE | 2021-12-26 01:29 | P.HPHOSP_ITS ---
History of Present Illness Date of Service: 12/26/21 Chief Complaint: headache this is a 61-year-old female with extensive past medical history that includes history of breast cancer, COPD, hypertension, hyperlipidemia, bipolar disorder, type 2 diabetes, hyperparathyroidism, anxiety, P 80, insomnia, who presents to the hospital with complaints of headache. Patient reports that her headache started 4 days ago, mostly localized to the mosque as well as above her eyes, throbbing, constant, 10/10, associated with blurry vision, she also complained of left upper extremity weakness that started today that has now resolved once she received medications in the ED for her headache. She reports that she was on antihypertensives but stopped by her behavioral health therapist due to a cough associated with her medication and her medications were never changed for an alternative. she reports a history of TIA 2 years ago, She is also complaining of an intermittent midsternal chest pain that feels squeezing, nonradiating, is started today, that has now resolved. She denies any numbness, no tingling, no facial droop, no loss of speech or slurred speech. no abdominal pain nausea or vomiting, no diarrhea constipation, no urinary symptoms and no lower extremity edema. patient also reports history of migraine but has not had a migraine headache in 2 years. On arrival to the ED patient found to have a blood pressure of 209/114, heart rate of 105, satting 98% on room air Labs are significant for WBC count of 11, labs otherwise unremarkable. Initial troponin of 8.2 increased to 2134. pt received Toradol, benadryl and reglan with resolution of her symptoms. CT of the head showed no acute pathology but did show a stroke of unknown chronicity but new since 2017 Review of Systems Review of Systems: Yes all other systems are reviewed and are negative [facility] Medical History Allergic rhinitis Allergic rhinitis Allergic rhinitis Anxiety Asthma Asthma Bipolar 1 disorder, depressed Bloody diarrhea Breast cancer Breast pain, right Bronchial asthma Colitis COPD (chronic obstructive pulmonary disease) Cough Depression Diabetes type 2, uncontrolled Dyslipidemia Fibromyalgia Hyperlipidemia LDL goal <100 Hyperparathyroidism Hypertension Hypothyroid Hypothyroid IDDM (insulin dependent diabetes mellitus) IDDM (insulin dependent diabetes mellitus) Infiltrating ductal carcinoma of left breast, stage 2 Insomnia Irritable bowel Osteoporosis PAD (peripheral artery disease) Rash Reactive airways dysfunction syndrome Restrictive airway disease Rheumatoid arthritis Seropositive rheumatoid arthritis T2DM (type 2 diabetes mellitus) Thyroid nodule Vitamin D deficiency Family History Mother Diabetes HTN (hypertension) Uterus cancer Malignant tumor of head Breast cancer Father Diabetes HTN (hypertension) CVD (cardiovascular disease) Heart problem Maternal Aunt Breast cancer Brother Myocardial infarction S/P CABG x 4 Family/Other FH: mental illness Other Mental health disorder Surgical History H/O: hysterectomy History of bunionectomy of both great toes History of colonoscopy History of esophagogastroduodenoscopy (EGD) History of lumpectomy of left breast History of pubovaginal sling History of tubal ligation Social History Household Members: Family Household Members Other:: sister Housing: Apartment Do you presently have visiting nurse or other home services: Yes (sister=it admin) Alcohol intake: never Patient Tobacco Use Status: Former Tobacco user Quit Date: 08/18/2021 Tobacco use type: Cigarette Cigarettes Per Day: 2 Years Smoked: 46 e-Cigarette/Vaping Use: Former Use Second Hand Smoke Exposure: No Use of substances other than those prescribed or required for medical reasons: No Advance Directives: Yes Advance Directives on File: Yes Advance Directives Date on File: 12/22/21 Patient : No service: No Current occupational status: disabled Current occupation: rt handed Cognitive needs: No Hearing needs: No Vision needs: No Meds Allergies Allergy/AdvReac Type Severity Reaction Status Date / Time dog dander [DOGS] Allergy Intermediate Respiratory Verified 12/25/21 21:20 distress ibuprofen [Ibuprofen] Allergy Intermediate STOMACH Verified 12/25/21 21:20 UPSET, abdominal pain, nausea and vomiting shellfish derived Allergy Intermediate Hives Verified 12/25/21 21:20 etanercept [From Enbrel] AdvReac Intermediate Facial Verified 12/25/21 21:20 Swelling metformin AdvReac Intermediate diarrhea Verified 12/25/21 21:20 metronidazole [From FLAGYL] AdvReac Intermediate DIARRHEA Verified 12/25/21 21:20 prednisone AdvReac Intermediate hallucinations, Verified 12/25/21 21:20 higher than 20 Home Medications Medication Instructions Recorded Confirmed Last Taken Type blood sugar diagnostic (FreeStyle 12/26/21 12/26/21 Unknown History Lite Strips) cholecalciferol (vitamin D3) 25 1 tab PO DAILY 12/26/21 12/26/21 Unknown History mcg (1,000 unit) tablet dulaglutide 1.5 mg/0.5 mL 0.5 ml SUBCUT QWEEK 12/26/21 12/26/21 Unknown History subcutaneous pen injector (Trulicity) insulin degludec 100 unit/mL (3 46 unit SUBCUT DAILY 12/26/21 12/26/21 Unknown History mL) subcutaneous pen (Tresiba FlexTouch U-100 insulin) lamotrigine 25 mg tablet 1 tab PO BID 12/26/21 12/26/21 Unknown History leflunomide 20 mg tablet 1 tab PO DAILY 12/26/21 12/26/21 Unknown History lisinopril 2.5 mg tablet 1 tab PO DAILY 12/26/21 12/26/21 Unknown History pregabalin 200 mg capsule 1 cap PO BEDTIME 12/26/21 12/26/21 Unknown History pregabalin 200 mg capsule 1 cap PO BEDTIME 12/26/21 12/26/21 Unknown History tizanidine 2 mg tablet 1 tab PO BEDTIME PRN 12/26/21 12/26/21 Unknown History trazodone 100 mg tablet 1 tab PO BEDTIME 12/26/21 12/26/21 Unknown History varenicline 1 mg tablet 1 tab PO BID 12/26/21 12/26/21 Unknown History Physical Exam Vital Signs and Narrative: Vital Signs: Last Vital Signs Temp 98.4 F 12/26/21 01:14 Pulse 73 12/26/21 01:14 Resp 17 12/26/21 01:14 BP 131/71 12/26/21 01:14 Pulse Ox 97 12/26/21 01:14 BMI result Body Mass Index 27.2 Const: General: cooperative and no acute distress Orientation/consciousness: patient oriented x3 Eyes: General: appearance normal, both eyes and all related structures Pupils: Equal, round and reactive pupils present Resp: Effort & Inspection: normal respiratory effort Auscultation: clear to auscultation bilaterally Cardio: Rate: regular rate Rhythm: regular rhythm GI: Palpation (GI): Soft to palpation Auscultation: normal bowel sounds Skin: General skin exam: no rashes or lesions noted Neuro: Other: Cranial nerve 2-12 intact, no neurological deficits, strength 5/5 in all extremities. General: patient oriented x3 Cranial nerves: Yes Equal, round and reactive pupils present Cognition (Neuro): normal cognition Extrem: General: Yes normal to inspection and Yes no pedal edema Results Labs CBC and Chem 7: 12/25/21 21:38 12/25/21 21:38 Labs: Laboratory Results - last 24 hr 12/25/21 12/25/21 12/26/21 21:38 21:38 00:44 MCV 84.8 MCH 28.6 MCHC 33.7 RDW 13.3 Plt Count 332 MPV 10.6 Immature Gran % (Auto) 0.3 Neut % (Auto) 57.1 Lymph % (Auto) 36.0 [place] % (Auto) 5.1 Eos % (Auto) 1.0 Baso % (Auto) 0.5 Lymph # (Auto) 4.0 [place] # (Auto) 0.6 Eos # (Auto) 0.1 Baso # (Auto) 0.1 Abs Immat Gran (auto) 0.03 Absolute Neuts (auto) 6.3 Absolute Nucleated RBC 0.000 Nucleated RBC % (auto) 0.0 Anion Gap 12 Estim Creat Clear Calc 54.1 Estimated GFR > 60 Random Glucose 192 H Calcium 9.9 COVID-19 (KRISS) Negative COVID-19 Clin Com See Note Imaging Radiologist's Impressions: Impressions Head CT 12/25/21 23:22 IMPRESSION: No acute intracranial hemorrhage. Focal region of loss of bernal-white differentiation in the left occipital lobe which is new since 02/22/2017 though otherwise age-indeterminate; acuity would be better assessed with MRI. This was discussed with Dr. Hill on 12/25/2021 11:51 PM. Chest CTA 12/25/21 23:30 IMPRESSION: Negative study without evidence of aortic dissection or any other acute aortic syndrome. No pulmonary emboli are detected No worrisome lung mass is seen. If this patient undergoes annual chest CT screening for malignancy, this exam will more than suffice. Fleischner guidelines were followed. Assessment and Plan (1) Hypertensive urgency: Status: Acute (2) Left arm weakness: Status: Acute (3) CVA (cerebral vascular accident): Status: Acute (4) Elevated troponin: Status: Acute Plan 61-year-old female with past medical history of hypertension, diabetes, among others who presents to the hospital with complaints of headache found to be in hypertensive urgency. # Hypertensive urgency - resolved spontaneously - possibly in the setting of CVA versus secondary to untreated hypertension - patient BP dropped spontaneously with pain medications - at this time will not start her on any medications and monitor # Headache - secondary to hypertensive urgency versus CVA versus migraine headaches - resolved once her blood pressure was controlled - monitor # CVA - CT of the head showed no acute intercranial hemorrhage but focal region of loss of bernal-white matter differentiation in the left occipital lobe which is new since 2017 but the acuity is not determined - patient reports history of TIA 2 years ago, she also had left upper extremity weakness which is most likely secondary to their hypertensive urgency - will consult Neurology, start high-dose statin as well as aspirin - will hold off on MRI until patient is seen and evaluated by Neurology # elevated troponin - most likely type 2 in the setting of hypertensive urgency - initial EKG showed ST depression in v3 but no significant other changes - tren troponing # DM - will continue home insulin, and low-dose sliding scale insulin, - diabetic diet # COPD - not in exacerbation - continue home inhalers all other home medications will be continued DVT prophylaxis, Lovenox Quality Stroke Does the patient have a stroke diagnosis?: No VTE Prior VTE?: No VTE Risk Level:: Medical - moderate - high VTE Device Contraindication: Treatment Not Indicated VTE Drug Contraindication: N/A - Med Ordered
[2021-12-26] MEDS: lamoTRIgine 25 MG TABLET PO ×2 (01:57→08:39)
[2021-12-26] MEDS: traZODone HCL 100 MG TABLET PO (01:57)
[2021-12-26] MEDS: Pregabalin 200 MG CAPSULE PO (01:57)
--- NOTE | 2021-12-26 02:42 | PC.NURSE ---
Hospitalist kathleen text that patient's troponin elevated at 2134 from initial of 8.5
[2021-12-26 06:03] LABS: MANUAL DIFF FLAG NO
[2021-12-26 06:04] LABS: Basophils Percent Auto 0.3 % (0-2); Eosinophils Absolute Auto 0.1 X10*3/uL (0.0-0.4); Eosinophils Percent Auto 1.7 % (0-4); Hematocrit 37.7 % (37.0-47.0); Hemoglobin 12.4 g/dl (12.0-16.0); Imm Gran Abs Auto 0.01 X10*3/uL (0.00-0.03); Imm Gran Pct Auto 0.2 % (0.0-0.4); Lymphocytes Absolute Auto 3.1 X10*3/uL (1.2-4.9); Lymphocytes Percent Auto 47.2 % (20-40); Mean Corpuscular HGB Conc 32.9 g/dl (31.0-35.0); Mean Corpuscular Hemoglobin 28.6 pg (27.0-33.0); Mean Corpuscular Volume 87.1 fL (80.0-98.0); Mean Platelet Volume 10.5 fL (9.4-12.3); Monocytes Absolute Auto 0.5 X10*3/uL (0.1-1.2); Monocytes Percent Auto 7.8 % (2-11); Neutrophils Absolute Auto 2.8 x10*3/uL (2.0-8.3); Neutrophils Percent Auto 42.8 % (45-73); Platelet Count 261 X10*3/uL (160-400); Red Blood Count 4.33 X10*6/uL (4.20-5.50); Red Cell Distribution Width 13.6 % (11.0-16.0); White Blood Count 6.6 X10*3/uL (4.8-10.8)
[2021-12-26 06:30] LABS: Anion Gap 12 (12-20); Blood Urea Nitrogen 10 mg/dL (9-16); Calcium 8.7 mg/dL (8.4-10.2); Carbon Dioxide 25 mmol/L (22-29); Chloride 111 mmol/L (96-108); Creatinine Clr Calc Pharmacy 61.8; Estimated Glomerular Filt Rate > 60; Glucose Random 120 mg/dL (60-115); Potassium 4.5 mmol/L (3.3-5.1); Sodium 143 mmol/L (135-145)
--- NOTE | 2021-12-26 06:35 | PC.NURSE ---
EKG completed for patient in ED17 at 0610. Requested by doctor and JAQUELINE Patel asked me to do the EKG. Other not found on [employer].
[2021-12-26 06:36] LABS: Appearance Urine CLEAR; Color Urine STRAW; Glucose Urine UA NEG (NEG); Leukocyte Esterase Urine TRACE (NEG); Nitrite Urine NEG (NEG); PH 5.5 (5.0-8.0); Specific Gravity - Urine <= 1.005 (1.005-1.025); UACC Culture Trigger YES; Urine Blood NEG (NEG); Urine Ketones NEG (NEG); Urine Protein NEG (NEG-TRACE)
[2021-12-26 06:45] LABS: Bacteria Urine TRACE /LPF; RBC Urine 0 /HPF (0); Squamous Epithelial Cell Urine 1+ /LPF; WBC Urine 0-2 /HPF (0-4)
--- NOTE | 2021-12-26 06:45 | PM.EVENT ---
Event Note Date of Service: 12/26/21 Event Note: patient troponin continued to trend up, spoke to Cardiology, patient will be started on heparin GGT and echocardiogram will be ordered
[2021-12-26 07:24] LABS: INTERNATIONAL NORM RATIO 1.2 (0.9-1.1); Prothrombin Time 13.1 SEC (9.9-13.0)
[2021-12-26 07:26] LABS: PTT Heparin Drip 37.4 SEC (53-77.9)
--- NOTE | 2021-12-26 07:45 | PHA.MEDREC ---
Pharmacy Consult ? Medication Reconciliation RN has completed the medication reconciliation, pharmacy reviewed..
[2021-12-26] MEDS: Heparin Sodium,Porcine/1/2NS 25,000 UNIT/250 ML IV.SOLN 8.57 UNIT IVCONT (07:59)
[2021-12-26] MEDS: Heparin Sodium,Porcine 5,000 UNIT/ML VIAL 4900 UNIT IVPUSH (08:01)
[2021-12-26 08:11] LABS: Glucose, Whole Blood 134 mg/dL (60-115)
--- NOTE | 2021-12-26 08:36 | ECG_ITS ---
Test Reason : HEADACHE Blood Pressure : / mmHG Vent. Rate : 067 BPM Atrial Rate : 067 BPM P-R Int : 132 ms QRS Dur : 084 ms QT Int : 410 ms P-R-T Axes : 045 078 083 degrees QTc Int : 433 ms Normal sinus rhythm Normal ECG When compared with ECG of 25-DEC-2021 21:27, ST no longer depressed in Anterior leads Nonspecific T wave abnormality no longer evident in Inferior leads Referred By: Generic ED Physician Electronically Signed By:Joseph Salmon
[2021-12-26] MEDS: Fluticasone/Vilanterol 200/25 BLST.W.DEV 1 PUFF INHALE (08:38)
[2021-12-26] MEDS: Letrozole 2.5 MG TABLET PO (08:38)
[2021-12-26] MEDS: Atorvastatin Calcium 80 MG TABLET PO (08:39)
[2021-12-26] MEDS: Cholecalciferol (Vitamin D3) 25 MCG TABLET PO (08:39)
[2021-12-26] MEDS: lisinopriL 2.5 MG TABLET PO (08:39)
[2021-12-26] MEDS: Aspirin Enteric Coated 81 MG TABLET.DR PO (08:39)
--- NOTE | 2021-12-26 08:41 | ECG_ITS ---
Test Reason : chest pain Blood Pressure : / mmHG Vent. Rate : 071 BPM Atrial Rate : 071 BPM P-R Int : 134 ms QRS Dur : 080 ms QT Int : 406 ms P-R-T Axes : 049 076 081 degrees QTc Int : 441 ms Normal sinus rhythm Normal ECG When compared with ECG of 26-DEC-2021 06:10, No significant change was found Referred By: Jose Harmon Electronically Signed By:Joseph Salmon
[2021-12-26] MEDS: Nitroglycerin 0.4 MG TAB.SUBL SUBLINGUAL (09:10)
[2021-12-26] MEDS: Acetaminophen 325 MG TABLET 650 MG PO (09:27)
[2021-12-26 09:35] LABS: Hematocrit 38.9 % (37.0-47.0); Hemoglobin 13.1 g/dl (12.0-16.0); Mean Corpuscular HGB Conc 33.7 g/dl (31.0-35.0); Mean Corpuscular Hemoglobin 28.8 pg (27.0-33.0); Mean Corpuscular Volume 85.5 fL (80.0-98.0); Mean Platelet Volume 10.9 fL (9.4-12.3); Platelet Count 290 X10*3/uL (160-400); Red Blood Count 4.55 X10*6/uL (4.20-5.50); Red Cell Distribution Width 13.7 % (11.0-16.0)
--- NOTE | 2021-12-26 10:37 | MHC.STROKE ---
12/25/212115 WALK-IN FOR [facility]ENG, VISUAL DISTURBANCE (VERIFIED ONSET 12/22/21 AT 1200, NO SYMPTOMS BEFORE THAT DATE AND TIME) ALSO C/O LEFT ARM, NECK, JAW DIFFUSE PAIN. CT HEAD NO BLEED, LEFT OCCIPITAL STROKE, MY NIHSS = 2 FOR RIGHT FIELD CUT BOTH EYES. SHE PASSED SWALLOW BUT IS NPO DUE TO CARDIAC STATUS. I ROUNDED WITH DR BAIRD AND WE DISCUSSED HER CASE TOGETHER. I DID PROVIDE STROKE EDUCATION, AND EXPLAINED THE PLAN OF CARE. SHE HAS A STROKE RISK FACTORS THAT WE DISCUSSED INCLUDING HTN (SHE WAS TAKEN OFF HER LISINOPRIL ABOUT 1 YEAR AGO JENN TO COPD), HLD, PVD, DM, MIGRAINE, PRIOR TIA. +FAMILY HISTORY FOR STROKE - SISTER. I ANSWERED ALL OF HER QUESTIONS. I GAVE HER SOME SWABS FOR HER DRY MOUTH. I WILL CONTINUE TO FOLLOW.
--- NOTE | 2021-12-26 11:00 | CA_ITS ---
Transthoracic Echocardiogram Patient (Last, First, Middle): Sosa Joiner D Gender: Female Date of : 1960 Age: 61 Procedure Date: 12/26/2021 Procedure Type: Transthoracic Echocardiogram Location: ER Height: 149.86 cm Weight: 61.24 kg BSA: 1.56 m2 Heart Rate: bpm BP: 108 / 66 mmHg [employer] Lieutenant: MEGAN Referring MD: Philip Martinez MD Symptoms: elevated trop Study Quality: Good Conclusions: - Normal left ventricular size and systolic function. - Normal right ventricular cavity size and systolic function. - There is no evidence of regional wall motion abnormalities. Findings Left Ventricle Normal left ventricular size and systolic function. There is mildly increased left ventricular wall thickness. The visually estimated ejection fraction is between 55-60%. There is no evidence of regional wall motion abnormalities. Diastolic function is indeterminate on the basis of available data. E/E prime ratio is between 8 and 15 consistent with indeterminate filling pressures. Right Ventricle Normal right ventricular cavity size and systolic function. Atria Both atria are normal in size. Aortic Valve The aortic valve was not well visualized. There is no aortic valve stenosis. There is no aortic valve regurgitation. Mitral Valve Normal mitral valve structure and function. There is trace mitral valve regurgitation. There is no mitral valve stenosis. Pulmonic Valve The pulmonic valve is likely normal. Tricuspid Valve Normal tricuspid valve structure and function. There is trace tricuspid valve regurgitation. Tricuspid regurgitation envelope is inadequate for calculation of right ventricular systolic pressure. Normal right atrial pressure. Great Vessels The pulmonary artery was not well visualized. Venous The inferior vena cava is normal in size and collapses greater than 50% with inspiration. Pericardium/Pleural There is no evidence of pericardial effusion. Measurements 2D Linear Measurements IVSd: 1.02 0.6-0.9/0.6-1.0 cm LVIDd: 3.71 3.9-5.3/4.2-5.9 cm LVIDd Index: 2.38 2.4-3.2/2.2-3.1 cm/m2 LVIDs: 2.54 2.0-3.6 cm LVPWd: 0.95 0.7-1.1 cm Ao Root: 2.50 2.1-3.5 cm LA Diam: 2.90 2.7-3.8/3.0-4.0 cm LAIDs Index: 1.86 1.5-2.3 cm/m2 LV Mass: 137.88 67-162/88-224 g LV Mass Index: 88.38 43-95/49-115 g/m2 LVOT Diam: 2.00 3.0+(-)1.3 cm 2D Systolic Function EF 4C: 55.50 >55% EF 2C: 67.40 >55% EF BiP: 62.80 >55% Mitral Valve MV Pk E: 0.76 MV PK A: 0.69 MV Decel Time: 216.00 E/A: 1.10 E'Lateral: 7.18 E'Medial: 8.05 E/E' Med: 9.40 E/E' Lat: 10.60 PHT: 63.00 MVA PHT: 3.49 Decel [place]: 3.52 Aortic Valve AoV Pk Fco: 1.26 AoV Mn Fco: 0.82 AoV VTI: 0.23 AoV Pk Grad: 6.00 Aov Mn Grad: 3.00 GARETH Cont.VTI: 1.99 LVOT LVOT Pk Fco: 0.71 LVOT Mn Fco: 0.46 LVOT VTI: 0.15 LVOT Pk Grad: 2.00 LVOT Mn Grad: 1.00 LVOT Diam: 2.00 LVOT Area: 3.14 Diastolic Function MV Pk E: 0.76 MV Pk A: 0.69 E/A: 1.10 E'Medial: 8.05 E/E' Med: 9.40 E' Laterial: 7.18 E/E' Lat: 10.60 Right Ventricle TAPSE (mm): 20.80 TVS' Fco: 11.40 Tricuspid Valve TR Pk Fco: 1.57 TR Pk Grad: 10.00 Great Vessels Aorta Ao Root-2D: 2.50 2.0-3.7 cm Ao Asc: 2.90 2.1-3.4 cm Updated in Other Vendor System with Status of Final Joseph Salmon MD electronically signed on 12/26/2021 7:07:42 PM with status of Final
[2021-12-26] MEDS: Nitroglycerin 2 % Oint 1 GM Packet 1 INCH TRANSDERMA (11:42)
--- NOTE | 2021-12-26 11:47 | P.CONCA_ITS ---
History of Present Illness History of Present Illness Date of Service: 12/26/21 Requesting physician: Nano Raphael Chief complaint: Stroke.nstemi Narrative: 61-year-old female who is presenting for headaches ongoing for 3 days. She said she suffers from migraine headaches and started experiencing some headaches 3 days ago. These did not improve and day before presentation she checked her blood pressure and her blood pressure was significantly elevated. With these symptoms she came to the emergency department and while in the ER she developed severe chest pain and upper back pain. She describes as a pressure-like sensation in the upper back which has not improved since then. Her blood pressure was improved with medications but chest discomfort and upper back discomfort did not improve. At the same time her high sensitivity troponin levels went from normal to 4000. We did bedside echocardiogram which did not show any obvious wall motion abnormality but due to ongoing symptoms she was seen urgently. She is saying she has some sharp sensation on the left side of her chest but she has an ongoing upper back pressure-like feeling. Off note she had a CT PA in the emergency department to rule out pulmonary embolism as well as dissection and it was normal. EKGs initially showed lateral ST depressions which were subtle but since then EKGs have been normal. She also had a CT scan of her head in the emergency department because she complained of left arm weakness. This has shown no intracranial hemorrhage but did show a focal region of loss of bernal white differentiation in the left occipital low which is a new finding since 2017. She was due to get an MRI but due to chest discomfort this has been delayed. We have discussed the case with Neurology who have agreed with dual antiplatelet therapy if required. She will need Neurology input as she get transferred to [facility]. [facility] Past Medical History Medical History Allergic rhinitis Allergic rhinitis Allergic rhinitis Anxiety Asthma Asthma Bipolar 1 disorder, depressed Bloody diarrhea Breast cancer Breast pain, right Bronchial asthma Colitis COPD (chronic obstructive pulmonary disease) Cough Depression Diabetes type 2, uncontrolled Dyslipidemia Fibromyalgia Hyperlipidemia LDL goal <100 Hyperparathyroidism Hypertension Hypothyroid Hypothyroid IDDM (insulin dependent diabetes mellitus) IDDM (insulin dependent diabetes mellitus) Infiltrating ductal carcinoma of left breast, stage 2 Insomnia Irritable bowel Osteoporosis PAD (peripheral artery disease) Rash Reactive airways dysfunction syndrome Restrictive airway disease Rheumatoid arthritis Seropositive rheumatoid arthritis T2DM (type 2 diabetes mellitus) Thyroid nodule Vitamin D deficiency Family History Family History Mother Diabetes HTN (hypertension) Uterus cancer Malignant tumor of head Breast cancer Father Diabetes HTN (hypertension) CVD (cardiovascular disease) Heart problem Maternal Aunt Breast cancer Brother Myocardial infarction S/P CABG x 4 Family/Other FH: mental illness Other Mental health disorder Surgical History Surgical History H/O: hysterectomy History of bunionectomy of both great toes History of colonoscopy History of esophagogastroduodenoscopy (EGD) History of lumpectomy of left breast History of pubovaginal sling History of tubal ligation Social History Social History Household Members: Family Household Members Other:: sister Housing: Apartment Do you presently have visiting nurse or other home services: Yes (sister=installer helper) Alcohol intake: never Patient Tobacco Use Status: Former Tobacco user Quit Date: 08/18/2021 Tobacco use type: Cigarette Cigarettes Per Day: 2 Years Smoked: 46 e-Cigarette/Vaping Use: Former Use Second Hand Smoke Exposure: No Use of substances other than those prescribed or required for medical reasons: No Advance Directives: Yes Advance Directives on File: Yes Advance Directives Date on File: 12/22/21 Patient : No service: No Current occupational status: disabled Current occupation: rt handed Cognitive needs: No Hearing needs: No Vision needs: No Meds Allergies Allergy/AdvReac Type Severity Reaction Status Date / Time dog dander [DOGS] Allergy Intermediate Respiratory Verified 12/25/21 21:20 distress ibuprofen [Ibuprofen] Allergy Intermediate STOMACH Verified 12/25/21 21:20 UPSET, abdominal pain, nausea and vomiting shellfish derived Allergy Intermediate Hives Verified 12/25/21 21:20 etanercept [From Enbrel] AdvReac Intermediate Facial Verified 12/25/21 21:20 Swelling metformin AdvReac Intermediate diarrhea Verified 12/25/21 21:20 metronidazole [From FLAGYL] AdvReac Intermediate DIARRHEA Verified 12/25/21 21:20 prednisone AdvReac Intermediate hallucinations, Verified 12/25/21 21:20 higher than 20 Active Medications: Current Medications Acetaminophen (Acetaminophen 325 Mg Tablet) 650 mg PO Q6H PRN PRN Reason: Pain, Mild (Pain Scale 1-3) Last Admin: 12/26/21 09:27 Dose: 650 mg Documented by: Albuterol Sulfate (Albuterol Sulfate 90 Mcg 8 Gm Inhaler) 1 puff INHALE QID PRN PRN Reason: shortness of breath or wheezing Aspirin (Aspirin Enteric Coated 81 Mg Tablet.) 81 mg PO DAILY [facility] Last Admin: 12/26/21 08:39 Dose: 81 mg Documented by: Atorvastatin Calcium (Atorvastatin Calcium 80 Mg Tablet) 80 mg PO DAILY [facility] Last Admin: 12/26/21 08:39 Dose: 80 mg Documented by: Dextrose (Dextrose 50 % 25 Gm/50 Ml Syringe) 25 gm IVPUSH Q15M PRN; Protocol PRN Reason: per Hypoglycemia Standing Ord. Docusate Sodium (Docusate Sodium 100 Mg Capsule) 100 mg PO DAILY PRN PRN Reason: Constipation Fluticasone/Vilanterol (Fluticasone/Vilanterol 200/25 Blst.W.Dev) 1 puff INHALE RDAILY [facility] Last Admin: 12/26/21 08:38 Dose: 1 puff Documented by: Glucose (Glucose Gel 15 Gm Gel..Gram.) 15 gm PO Q15M PRN; Protocol PRN Reason: per Hypoglycemia Standing Ord. Heparin Sodium (Porcine) (Heparin Sodium,Porcine 5,000 Unit/Ml Vial) 2,400 unit 40 unit/kg (2400 unit) IVPUSH PROTOCOL BOLUS PRN; Protocol PRN Reason: 40 unit/kg - Heparin Protocol Heparin Sodium (Porcine) (Heparin Sodium,Porcine 5,000 Unit/Ml Vial) 4,900 unit 80 unit/kg (4900 unit) IVPUSH PROTOCOL BOLUS PRN; Protocol PRN Reason: 80 unit/kg - Heparin Protocol Heparin Sodium/Sodium Chloride () 25,000 unit in 250 mls @ 0 mls/hr IVCONT .Q0M [facility]; Protocol Last Admin: 12/26/21 07:59 Dose: 14 units/kg/hr, 8.57 mls/hr Documented by: Insulin Glargine (Insulin Glargine,Hum.Rec.Anlog 100 Unit/Ml 10 Ml Vial) 32 unit SUBCUT DAILY [facility] Last Admin: 12/26/21 09:13 Dose: Not Given Documented by: Insulin Human Lispro (Insulin Lispro 100 Unit/Ml 3 Ml Vial) 0 unit SUBCUT QIDACHS [facility]; Protocol Last Admin: 12/26/21 08:16 Dose: Not Given Documented by: Lamotrigine (Lamotrigine 25 Mg Tablet) 25 mg PO BID [facility] Last Admin: 12/26/21 08:39 Dose: 25 mg Documented by: Letrozole (Letrozole 2.5 Mg Tablet) 2.5 mg PO DAILY [facility] Last Admin: 12/26/21 08:38 Dose: 2.5 mg Documented by: Lisinopril (Lisinopril 2.5 Mg Tablet) 2.5 mg PO DAILY [facility]; Protocol Last Admin: 12/26/21 08:39 Dose: 2.5 mg Documented by: Nitroglycerin (Nitroglycerin 2 % Oint 1 Gm Packet) 1 inch TRANSDERMA RQ6H WHILE AWAKE PRN PRN Reason: Pain, Mild (Pain Scale 1-3) Last Admin: 12/26/21 11:42 Dose: 1 inch Documented by: Nitroglycerin (Nitroglycerin 0.4 Mg Tab.Subl) 0.4 mg SUBLINGUAL Q5MX3 PRN PRN Reason: Pain, Mild (Pain Scale 1-3) Non-Formulary Medication (Varenicline) 1 mg PO BID [facility] Ondansetron HCl (Ondansetron Hcl 4 Mg/2 Ml Vial) 4 mg IVPUSH Q8H PRN PRN Reason: Nausea and Vomiting Pregabalin (Pregabalin 200 Mg Capsule) 200 mg PO BEDTIME [facility] Last Admin: 12/26/21 01:57 Dose: 200 mg Documented by: Tizanidine HCl (Tizanidine Hcl 4 Mg Tablet) 2 mg PO BEDTIME PRN PRN Reason: muscle spasm Trazodone HCl (Trazodone Hcl 100 Mg Tablet) 100 mg PO BEDTIME [facility] Last Admin: 12/26/21 01:57 Dose: 100 mg Documented by: Vitamin D (Cholecalciferol (Vitamin D3) 25 Mcg Tablet) 25 mcg PO DAILY [facility] Last Admin: 12/26/21 08:39 Dose: 25 mcg Documented by: Home Medications Medication Instructions Recorded Confirmed Last Taken Type blood sugar diagnostic (FreeStyle 12/26/21 12/26/21 Unknown History Lite Strips) butalbital 50 mg-acetaminophen 325 1 cap PO Q4H PRN 12/26/21 12/26/21 Unknown History mg-caffeine 40 mg-codeine 30 mg cap cholecalciferol (vitamin D3) 25 1 tab PO DAILY 12/26/21 12/26/21 Unknown History mcg (1,000 unit) tablet dulaglutide 1.5 mg/0.5 mL 0.5 ml SUBCUT QWEEK 12/26/21 12/26/21 Unknown History subcutaneous pen injector (Trulicity) insulin aspart U-100 100 unit/mL See Protocol SUBCUT TIDAC 12/26/21 12/26/21 Unknown History (3 mL) subcutaneous pen (Novolog Flexpen U-100 Insulin aspart) insulin degludec 100 unit/mL (3 46 unit SUBCUT DAILY 12/26/21 12/26/21 Unknown History mL) subcutaneous pen (Tresiba FlexTouch U-100 insulin) lisinopril 2.5 mg tablet 1 tab PO DAILY 12/26/21 12/26/21 Unknown History pregabalin 200 mg capsule 1 cap PO BEDTIME 12/26/21 12/26/21 Unknown History tizanidine 2 mg tablet 1 tab PO BEDTIME PRN 12/26/21 12/26/21 Unknown History Physical Exam Vital Signs: Vital Signs: Last Vital Signs Temp 98.1 F 12/26/21 06:00 Pulse 73 12/26/21 10:39 Resp 18 12/26/21 10:39 BP 108/66 12/26/21 09:28 Pulse Ox 97 12/26/21 10:39 BMI result Body Mass Index 27.2 GENERAL APPEARANCE: in no acute distress, pleasant. NECK: no carotid bruit, no jugular venous distention. SKIN: no suspicious lesions, warm and dry. HEART: no murmurs, regular rate and rhythm. LUNGS: clear to auscultation bilaterally. ABDOMEN: soft, nontender. EXTREMITIES: no edema. PERIPHERAL PULSES: equal. Objective Labs and Meds Result diagrams: 12/26/21 09:14 12/26/21 05:57 Lab results: Laboratory Results - last 24 hr 12/25/21 12/25/21 12/25/21 21:38 21:38 21:38 WBC 11.0 H RBC 5.00 Hgb 14.3 Hct 42.4 MCV 84.8 MCH 28.6 MCHC 33.7 RDW 13.3 Plt Count 332 MPV 10.6 Immature Gran % (Auto) 0.3 Neut % (Auto) 57.1 Lymph % (Auto) 36.0 Hickman % (Auto) 5.1 Eos % (Auto) 1.0 Baso % (Auto) 0.5 Lymph # (Auto) 4.0 Hickman # (Auto) 0.6 Eos # (Auto) 0.1 Baso # (Auto) 0.1 Abs Immat Gran (auto) 0.03 Absolute Neuts (auto) 6.3 Absolute Nucleated RBC 0.000 Nucleated RBC % (auto) 0.0 PT INR aPTT Heparin Protocol Sodium 140 Potassium 4.1 Chloride 105 Carbon Dioxide 27 Anion Gap 12 BUN 10 Creatinine 0.89 Estim Creat Clear Calc 54.1 Estimated GFR > 60 POC Glucose Random Glucose 192 H Calcium 9.9 Troponin I High Sens 8.2 Urine Color Urine Appearance Urine pH Ur Specific [place] Urine Protein Urine Glucose (UA) Urine Ketones Urine Blood Urine Nitrite Ur Leukocyte Esterase Urine RBC Urine WBC Ur Squamous Epith Cells Urine Bacteria COVID-19 ([facility]ISS) COVID-[employer] Com 12/26/21 12/26/21 12/26/21 00:44 01:46 05:57 WBC 6.6 RBC 4.33 Hgb 12.4 Hct 37.7 MCV 87.1 MCH 28.6 MCHC 32.9 RDW 13.6 Plt Count 261 MPV 10.5 Immature Gran % (Auto) 0.2 Neut % (Auto) 42.8 L Lymph % (Auto) 47.2 H Hickman % (Auto) 7.8 Eos % (Auto) 1.7 Baso % (Auto) 0.3 Lymph # (Auto) 3.1 Hickman # (Auto) 0.5 Eos # (Auto) 0.1 Baso # (Auto) 0.0 Abs Immat Gran (auto) 0.01 Absolute Neuts (auto) 2.8 Absolute Nucleated RBC 0.000 Nucleated RBC % (auto) 0.0 PT INR aPTT Heparin Protocol Sodium Potassium Chloride Carbon Dioxide Anion Gap BUN Creatinine Estim Creat Clear Calc Estimated GFR POC Glucose Random Glucose Calcium Troponin I High Sens 2134.0 H* D Urine Color Urine Appearance Urine pH Ur Specific [place] Urine Protein Urine Glucose (UA) Urine Ketones Urine Blood Urine Nitrite Ur Leukocyte Esterase Urine RBC Urine WBC Ur Squamous Epith Cells Urine Bacteria COVID-19 ([facility]) Negative COVID-19 Clin Com See Note 12/26/21 12/26/21 12/26/21 05:57 05:57 06:28 WBC RBC Hgb Hct MCV MCH MCHC RDW Plt Count MPV Immature Gran % (Auto) Neut % (Auto) Lymph % (Auto) Hickman % (Auto) Eos % (Auto) Baso % (Auto) Lymph # (Auto) Hickman # (Auto) Eos # (Auto) Baso # (Auto) Abs Immat Gran (auto) Absolute Neuts (auto) Absolute Nucleated RBC Nucleated RBC % (auto) PT INR aPTT Heparin Protocol Sodium 143 Potassium 4.5 Chloride 111 H Carbon Dioxide 25 Anion Gap 12 BUN 10 Creatinine 0.78 Estim Creat Clear Calc 61.8 Estimated GFR > 60 POC Glucose Random Glucose 120 H Calcium 8.7 D Troponin I High Sens 4488.9 H* D Urine Color STRAW Urine Appearance CLEAR Urine pH 5.5 Ur Specific [place] <= 1.005 Urine Protein NEG Urine Glucose (UA) NEG Urine Ketones NEG Urine Blood NEG Urine Nitrite NEG Ur Leukocyte Esterase TRACE H Urine RBC 0 Urine WBC 0-2 Ur Squamous Epith Cells 1+ Urine Bacteria TRACE COVID-19 ([facility]) COVID-19 [employer] 12/26/21 12/26/21 12/26/21 07:14 08:07 09:14 WBC 7.0 RBC 4.55 Hgb 13.1 Hct 38.9 MCV 85.5 MCH 28.8 MCHC 33.7 RDW 13.7 Plt Count 290 MPV 10.9 Immature Gran % (Auto) Neut % (Auto) Lymph % (Auto) Hickman % (Auto) Eos % (Auto) Baso % (Auto) Lymph # (Auto) Hickman # (Auto) Eos # (Auto) Baso # (Auto) Abs Immat Gran (auto) Absolute Neuts (auto) Absolute Nucleated RBC 0.000 Nucleated RBC % (auto) 0.0 PT 13.1 H INR 1.2 H aPTT Heparin Protocol 37.4 L Sodium Potassium Chloride Carbon Dioxide Anion Gap BUN Creatinine Estim Creat Clear Calc Estimated GFR POC Glucose 134 H Random Glucose Calcium Troponin I High Sens Urine Color Urine Appearance Urine pH Ur Specific [place] Urine Protein Urine Glucose (UA) Urine Ketones Urine Blood Urine Nitrite Ur Leukocyte Esterase Urine RBC Urine WBC Ur Squamous Epith Cells Urine Bacteria COVID-19 ([facility]) COVID-19 Clin Com Imaging Radiologist's impression: Impressions Head CT 12/25/21 23:22 IMPRESSION: No acute intracranial hemorrhage. Focal region of loss of bernal-white differentiation in the left occipital lobe which is new since 02/22/2017 though otherwise age-indeterminate; acuity would be better assessed with MRI. This was discussed with Dr. Hill on 12/25/2021 11:51 PM. Chest CTA 12/25/21 23:30 IMPRESSION: Negative study without evidence of aortic dissection or any other acute aortic syndrome. No pulmonary emboli are detected No worrisome lung mass is seen. If this patient undergoes annual chest CT screening for malignancy, this exam will more than suffice. Fleischner guidelines were followed. Assessment and Plan (1) NSTEMI (non-ST elevated myocardial infarction): Status: Acute (2) CVA (cerebral vascular accident): Status: Acute Plan 61-year-old female with history of diabetes, hypertension, Raynaud disease, asthma and rheumatoid arthritis presenting for headache and CT scan of the brain is showing focal region of loss of bernal-white differentiation the left occipital lobe pointing towards age indeterminate infarct. At the same time she is complaining of upper back and chest discomfort with biomarkers elevation and high sensitivity troponin of more than 4000. Despite controlling blood pressure she has ongoing symptoms. Her initial EKG did show some subtle ST depressions also. Given her risk factors for coronary disease she needs urgent assessment. I have discussed the case with CCU at [facility] am going to transfer her urgently to [facility] and perform a diagnostic angiogram. In the meantime she should stay on aspirin, nitrates and heparin drip. Given her history of Raynaud's disease I would avoid radial access on her. Thank you for allowing me to participate in the care of your patient. Please feel free to contact me if you have any questions. Procedures Date of Service Date of Service: 12/26/21
--- NOTE | 2021-12-26 11:47 | PC.NURSE ---
patient a&ox3, vitals stable, pt monitoring coordinator nsr 80s, bedside echo being performed, cardiology to transfer patient to [facility], 1inch nitro paste applied, heparin drip @ 14, provider aware to put in morphine for patients pain, call devi within reach, will continue to monitor.
--- NOTE | 2021-12-26 11:55 | MHC.CM.PN ---
Attempted to meet [facility] patient in regards to discharge planning. Echo currently being performed. Received notification that patient will be transferred to [facility]. Will attempt to meet again. Continue to monitor for d/c needs.
--- NOTE | 2021-12-26 12:14 | PC.NURSE ---
rn to rn to Geri at [facility]
--- NOTE | 2021-12-26 12:18 | PC.NURSE ---
CALL RECEIVED FROM [facility] PT PLACEMENT WITH ROOM ASSIGNMENT AND ACCEPTING DOCTOR FOR THIS PT [employer] 3 ROOM 25 RN TO RN: [phone] DR ISLAS ACCEPTING THIS TRANSFER
[2021-12-26 12:35] LABS: Glucose, Whole Blood 128 mg/dL (60-115)
--- NOTE | 2021-12-26 12:57 | P.DS_ITS ---
DS: Providers Provider Date of Service: 12/26/21 Date of admission: 12/26/21 01:23 Primary care physician: Unknown Physician Consults: 12/26/21 01:23 Consult to Neurology Routine Consulting Provider: [facility] Reason for consultation: Stroke Has provider been notified: No 12/26/21 08:17 Consult to Cardiology Routine Consulting Provider: [facility] Reason for consultation: nstemi Has provider been notified: No Attending physician on discharge: Nano Raphael DS: Diagnosis Discharge Diagnosis (1) Hypertensive urgency: Status: Acute (2) Left arm weakness: Status: Acute (3) CVA (cerebral vascular accident): Status: Acute (4) Elevated troponin: Status: Acute DS: Summary Hospital Course Hospital Course: 61-year-old female with extensive past medical history that includes history of breast cancer, COPD, hypertension, hyperlipidemia, bipolar disorder, type 2 diabetes, hyperparathyroidism, anxiety,? P 80, insomnia, who presents to the hospital with complaints of headache.? Patient reports that her? headache started 4 days ago, mostly? localized to the anglican as well as above her eyes, throbbing, constant, 10/10, associated with blurry vision, she also complained of left upper extremity weakness that started today that has now resolved once she received medications in the ED for her headache.? She reports that she was on antihypertensives but stopped by her payroll assistant due to a cough associated with her medication and her medications were never changed for an alternative.? she reports a history of TIA 2 years ago, ? She is also complaining of an intermittent midsternal chest pain that feels squeezing, nonradiating, is started today, that has now resolved.? She denies any numbness, no tingling, no facial droop, no loss of speech or slurred speech. no abdominal pain nausea or vomiting, no diarrhea constipation, no urinary symptoms and no lower extremity edema. ?patient also reports history of migraine but has not had a migraine headache in 2 years. ? On arrival to the ED patient found to have a blood pressure of 209/114, heart rate of 105, satting 98% on room air Labs are significant for? WBC count of 11, labs otherwise unremarkable.? Initial troponin of 8.2 increased to 2134.? pt received Toradol, benadryl and reglan with resolution of her symptoms. CT of the head showed no acute pathology but did show a stroke of unknown chronicity but new since 2017. Hospital course: patient came with NSTEMI , the headache, hypertension urgency: Initial workup found to have occipital stroke the possible subacute considering her symptoms from 3-4 days- patient is otherwise moving all extremities. MRI can be done in [facility] currently needs cath and further nstemi mangement . consider follow up neurology consult and [place] [facility] after the procedure . blood pressure seems to be improving without medications, her lisinopril was stopped by her pcp as per patient , consider adding metoprolol if needed . echo ordered but if not done here then can be done in [facility]. Cva: possible subacute . continue asa, statin , consider doing mri and [place]eval [place] [facility] [facility] after completeing cardiac management. NSTEMI:continue asa, statin ,ntg, iv heparin , further management as per cardiology. above is d/w patient in detail. Above management discussed with the patient in detail length she understand and in agreement with the above plan, time spent 50 minutes and 50% time spent on counseling. Significant findings: As above. Procedures performed: None. Treatment and response: As above. Complications: None. Time Spent with Patient Time attestation: Total time spent providing and/or coordinating discharge services: Discharge coordination time: Greater than 30 minutes Quality: Stroke Does the patient have a stroke diagnosis?: Yes Reason for No Anti-thrombotic at DC: N/A - Med Ordered Reason for No Anticoagulant at DC: N/A - Med Ordered Reason Not Initiating IV-Tpa: N/A - Med Ordered Reason for No Anti-thrombotic by Day Two: N/A - Med Ordered Reason for No Statin at DC: N/A - Med Ordered Physical Exam Vital Signs: Vital Signs: Last Vital Signs Temp 98.1 F 12/26/21 06:00 Pulse 73 12/26/21 10:39 Resp 18 12/26/21 10:39 BP 108/66 12/26/21 09:28 Pulse Ox 97 12/26/21 10:39 BMI result Body Mass Index 27.2 Appearance: Alert.? Oriented X3.? not in distress.? Eyes: Pupils equal, round and reactive to light.? Sclera nonicteric.? ENT: Pharynx normal.? Moist mucous membranes. cvs: rrr, [id number] , still has mild chest pain. res: clear to auscultation ,no rhonchii or wheezing abd: no rebound or guarding ,nt, bs present. ext pulses present , no cyanosis ,Gait well balanced well coordinated. neuro: aox3 , has right eye mild hemianopsia, moves all extermities. DS: Data Data Completed and Pending Labs on day of discharge: Laboratory Results - last 24 hr 12/25/21 12/25/21 12/25/21 21:38 21:38 21:38 WBC 11.0 H RBC 5.00 Hgb 14.3 Hct 42.4 MCV 84.8 MCH 28.6 MCHC 33.7 RDW 13.3 Plt Count 332 MPV 10.6 Immature Gran % (Auto) 0.3 Neut % (Auto) 57.1 Lymph % (Auto) 36.0 Fajardo % (Auto) 5.1 Eos % (Auto) 1.0 Baso % (Auto) 0.5 Lymph # (Auto) 4.0 Fajardo # (Auto) 0.6 Eos # (Auto) 0.1 Baso # (Auto) 0.1 Abs Immat Gran (auto) 0.03 Absolute Neuts (auto) 6.3 Absolute Nucleated RBC 0.000 Nucleated RBC % (auto) 0.0 PT INR aPTT Heparin Protocol Sodium 140 Potassium 4.1 Chloride 105 Carbon Dioxide 27 Anion Gap 12 BUN 10 Creatinine 0.89 Estim Creat Clear Calc 54.1 Estimated GFR > 60 POC Glucose Random Glucose 192 H Calcium 9.9 Troponin I High Sens 8.2 Urine Color Urine Appearance Urine pH Ur Specific [place] Urine Protein Urine Glucose (UA) Urine Ketones Urine Blood Urine Nitrite Ur Leukocyte Esterase Urine RBC Urine WBC Ur Squamous Epith Cells Urine Bacteria COVID-19 ([facility]) COVID-19 Clin Com 12/26/21 12/26/21 12/26/21 00:44 01:46 05:57 WBC 6.6 RBC 4.33 Hgb 12.4 Hct 37.7 MCV 87.1 MCH 28.6 MCHC 32.9 RDW 13.6 Plt Count 261 MPV 10.5 Immature Gran % (Auto) 0.2 Neut % (Auto) 42.8 L Lymph % (Auto) 47.2 H [place] % (Auto) 7.8 Eos % (Auto) 1.7 Baso % (Auto) 0.3 Lymph # (Auto) 3.1 [place] # (Auto) 0.5 Eos # (Auto) 0.1 Baso # (Auto) 0.0 Abs Immat Gran (auto) 0.01 Absolute Neuts (auto) 2.8 Absolute Nucleated RBC 0.000 Nucleated RBC % (auto) 0.0 PT INR aPTT Heparin Protocol Sodium Potassium Chloride Carbon Dioxide Anion Gap BUN Creatinine Estim Creat Clear Calc Estimated GFR POC Glucose Random Glucose Calcium Troponin I High Sens 2134.0 H* D Urine Color Urine Appearance Urine pH Ur Specific [place] Urine Protein Urine Glucose (UA) Urine Ketones Urine Blood Urine Nitrite Ur Leukocyte Esterase Urine RBC Urine WBC Ur Squamous Epith Cells Urine Bacteria COVID-19 ([facility]) Negative COVID-19 Clin Com See Note 12/26/21 12/26/21 12/26/21 05:57 05:57 06:28 WBC RBC Hgb Hct MCV MCH MCHC RDW Plt Count MPV Immature Gran % (Auto) Neut % (Auto) Lymph % (Auto) [place] % (Auto) Eos % (Auto) Baso % (Auto) Lymph # (Auto) [place] # (Auto) Eos # (Auto) Baso # (Auto) Abs Immat Gran (auto) Absolute Neuts (auto) Absolute Nucleated RBC Nucleated RBC % (auto) PT INR aPTT Heparin Protocol Sodium 143 Potassium 4.5 Chloride 111 H Carbon Dioxide 25 Anion Gap 12 BUN 10 Creatinine 0.78 Estim Creat Clear Calc 61.8 Estimated GFR > 60 POC Glucose Random Glucose 120 H Calcium 8.7 D Troponin I High Sens 4488.9 H* D Urine Color STRAW Urine Appearance CLEAR Urine pH 5.5 Ur Specific [place] <= 1.005 Urine Protein NEG Urine Glucose (UA) NEG Urine Ketones NEG Urine Blood NEG Urine Nitrite NEG Ur Leukocyte Esterase TRACE H Urine RBC 0 Urine WBC 0-2 Ur Squamous Epith Cells 1+ Urine Bacteria TRACE COVID-19 ([facility]) COVID-19 Clin Com 12/26/21 12/26/21 12/26/21 07:14 08:07 09:14 WBC 7.0 RBC 4.55 Hgb 13.1 Hct 38.9 MCV 85.5 MCH 28.8 MCHC 33.7 RDW 13.7 Plt Count 290 MPV 10.9 Immature Gran % (Auto) Neut % (Auto) Lymph % (Auto) [place] % (Auto) Eos % (Auto) Baso % (Auto) Lymph # (Auto) [place] # (Auto) Eos # (Auto) Baso # (Auto) Abs Immat Gran (auto) Absolute Neuts (auto) Absolute Nucleated RBC 0.000 Nucleated RBC % (auto) 0.0 PT 13.1 H INR 1.2 H aPTT Heparin Protocol 37.4 L Sodium Potassium Chloride Carbon Dioxide Anion Gap BUN Creatinine Estim Creat Clear Calc Estimated GFR POC Glucose 134 H Random Glucose Calcium Troponin I High Sens Urine Color Urine Appearance Urine pH Ur Specific [place] Urine Protein Urine Glucose (UA) Urine Ketones Urine Blood Urine Nitrite Ur Leukocyte Esterase Urine RBC Urine WBC Ur Squamous Epith Cells Urine Bacteria COVID-19 ([facility]) COVID-19 Clin Com 12/26/21 12:29 WBC RBC Hgb Hct MCV MCH MCHC RDW Plt Count MPV Immature Gran % (Auto) Neut % (Auto) Lymph % (Auto) [place] % (Auto) Eos % (Auto) Baso % (Auto) Lymph # (Auto) [place] # (Auto) Eos # (Auto) Baso # (Auto) Abs Immat Gran (auto) Absolute Neuts (auto) Absolute Nucleated RBC Nucleated RBC % (auto) PT INR aPTT Heparin Protocol Sodium Potassium Chloride Carbon Dioxide Anion Gap BUN Creatinine Estim Creat Clear Calc Estimated GFR POC Glucose 128 H Random Glucose Calcium Troponin I High Sens Urine Color Urine Appearance Urine pH Ur Specific [place] Urine Protein Urine Glucose (UA) Urine Ketones Urine Blood Urine Nitrite Ur Leukocyte Esterase Urine RBC Urine WBC Ur Squamous Epith Cells Urine Bacteria COVID-19 ([facility]) COVID-19 Clin Com Additional Comments Additional comments: CT/CT angio chest aorta IMPRESSION: ? Negative study without evidence of aortic dissection or any other acute aortic syndrome. No pulmonary emboli are detected ? No worrisome lung mass is seen. If this patient undergoes annual chest CT screening for malignancy, this exam will more than suffice. ? Fleischner guidelines were followed. CT/CT head/brain wo con IMPRESSION: No acute intracranial hemorrhage. Focal region of loss of bernal-white differentiation in the left occipital lobe which is new since 02/22/2017 though otherwise age-indeterminate; acuity would be better assessed with MRI. ? This was discussed with Dr. Hill on 12/25/2021 11:51 PM. Discharge Plan Discharge Patient Disposition: [facility] Discharge Diagnosis: nstemi, cva ( possible subacute) Referrals: [facility] [Outside] - 1 Week Physician,Unknown J [Primary Care Provider] - 1 Week Discharge Medications: New Nitro-Bid 2 % Ointment 1 inch transdermal RQ6H WHILE AWAKE PRN (Reason: Pain, Mild (Pain Scale 1-3)) Qty: 1 0RF aspirin 81 mg Tablet,Delayed Release (Dr/Ec) 81 mg PO DAILY Qty: 30 0RF atorvastatin 80 mg Tablet 80 mg PO DAILY Qty: 30 0RF heparin(porcine) in 0.45% NaCl 25,000 unit/250 mL Parenteral Solution 25,000 unit continuous IV infusion .Q0M Qty: 250 0RF metoprolol tartrate 25 mg tablet 12.5 mg PO BID Qty: 14 0RF Continued Advair HFA 230-21 mcg/actuation HFA aerosol inhaler 2 puff PO BID Qty: 12 3RF ipratropium-albuterol 0.5 mg-3 mg(2.5 mg base)/3 mL solution for nebulization 3 ml inhalation Q6H PRN (Reason: for wheezing) Qty: 180 2RF Orencia ClickJect 125 mg/mL auto-injector 125 mg subcut QWEEK Qty: 4 3RF varenicline 1 mg tablet 1 mg PO BID 28 Days Qty: 56 1RF trazodone 100 mg tablet 100 mg PO BEDTIME 90 Days Qty: 90 0RF letrozole 2.5 mg Tablet 2.5 mg PO DAILY Qty: 90 4RF tizanidine 2 mg tablet 1 tab PO BEDTIME PRN (Reason: muscle spasm) 0RF (DME) FreeStyle Lite Strips Strip MISCELLANEOUS DAILY 0RF pregabalin 200 mg capsule 1 cap PO BEDTIME 0RF cholecalciferol (vitamin D3) 25 mcg (1,000 unit) tablet 1 tab PO DAILY 0RF Tresiba FlexTouch U-100 100 unit/mL (3 mL) insulin pen 46 unit subcut DAILY 0RF Trulicity 1.5 mg/0.5 mL pen injector 0.5 ml subcut QWEEK 0RF lbehnnvouz-icnvxubaxd-nkg-cod [id number] mg capsule 1 cap PO Q4H PRN (Reason: Headache) 0RF insulin aspart U-100 [Novolog Flexpen U-100 Insulin] 100 unit/mL (3 mL) insulin pen See Protocol sliding scale dose subcut TIDAC 0RF Protocol: Insulin Correction Scale Less than or equal to 110 ---- Give (units): 0 111 to 150 Give (units): 0 151 to 200 Give (units): 2 201 to 250 Give (units): 4 251 to 300 Give (units): 6 301 to 350 Give (units): 8 Greater than 350 Give (units): 10 Call MD if Blood Glucose > : 350 (DME) pen needle, diabetic [Comfort EZ Pen [place]] 31 gauge x 5/16 needle See Rx Instructions .ROUTE .MEDSUPPLY Qty: 200 11RF Rx Instructions: Use 1 pen needle 6 times a day lamotrigine 25 mg tablet 25 mg PO BID 90 Days Qty: 180 1RF albuterol sulfate 90 mcg/actuation HFA aerosol inhaler 1 inh inhalation QID PRN (Reason: shortness of breath or wheezing) Qty: 8.5 0RF Rx Instructions: please fill and release for 1 time emergency, patient lost her other one Held lisinopril 2.5 mg tablet 1 tab PO DAILY 0RF Hold Instructions: Resume on 01/02/22. Discharge Orders: Discharge Order (Routine); Ordered 12/26/21 Ordered By: Nano Raphael Diet: advance to usual diet, low fat, low cholesterol and low salt diet Activity on Discharge: As tolerated Stand Alone Forms: Patient Portal Discharge page Care Plan Goals: patient came with NSTEMI , the headache, hypertension urgency: Initial workup found to have occipital stroke the possible subacute considering her symptoms from 3-4 days- patient is otherwise moving all extremities. MRI can be done in [facility] currently needs cath and further nstemi mangement . consider follow up neurology consult and mri in [facility] after the procedure . NSTEMI:continue asa, statin ,ntg, iv heparin , further management as per cardiology. above is d/w patient in detail. Health Concerns: as above. Plan of Treatment: as above. Assessment: as above.
--- NOTE | 2021-12-26 13:27 | MHC.SLORD ---
Speech Language Pathology Order Status: Attempted to see PT for BSE. Pt and sister report they were awaiting transfer to [facility] and Pt was NPO for procedure. D/C BSE.
[2021-12-26] MEDS: Morphine Sulfate 2 MG/ML CARTRIDGE 1 MG IVPUSH (13:43)
--- NOTE | 2021-12-26 13:51 | PC.NURSE ---
dr. roper messaged this nurse via tiger text and asked for me to direct the ems crew direct to the optical laboratory manager as he is leaving [facility] to meet them there to perform the cath.
--- NOTE | 2021-12-26 13:58 | PC.NURSE ---
report called to [facility]
== END 2021-12-26 14:30 | disposition short-term general hospital (02) | DRG 64 ==
LOC: HO.ED 12-26 00:49 → HO.EDOVER 12-26 01:31
PROVIDERS: Admitting Provider Internal Medicine; Emergency Provider Student in an Organized Health Care Education/Training Program; PCP Internal Medicine; Visit Provider Internal Medicine
DX: I63.9 Cerebral infarction, unspecified (principal); I21.4 Non-ST elevation (NSTEMI) myocardial infarction; I16.0 Hypertensive urgency; M06.9 Rheumatoid arthritis, unspecified; R29.702 NIHSS score 2; G83.24 Monoplegia of upper limb affecting left nondominant side; I10 Essential (primary) hypertension; J44.9 Chronic obstructive pulmonary disease, unspecified; Z20.822 Contact with and (suspected) exposure to COVID-19; Z87.891 Personal history of nicotine dependence; Z88.6 Allergy status to analgesic agent; Z79.4 Long term (current) use of insulin; Z79.899 Other long term (current) drug therapy
CPT/HCPCS: 36415; 70450; 71275; 80048; 81001; 82947; 84484; 85025; 85027; 85610; 85730; 87086; 87635; 93005; 93306; 96361; 96374; 96375; 99285; J1200; J1885; J2270; J2765; Q9967

== ENCOUNTER 2022-01-11 10:15 | Outpatient (REF) | payer MEDICARE, MEDICAID, SELFPAY ==
[2022-01-11 11:42] LABS: MANUAL DIFF FLAG NO
[2022-01-11 12:02] LABS: Basophils Percent Auto 0.3 % (0-2); Eosinophils Absolute Auto 0.1 X10*3/uL (0.0-0.4); Eosinophils Percent Auto 0.7 % (0-4); Hemoglobin 13.5 g/dl (12.0-16.0); Imm Gran Abs Auto 0.03 X10*3/uL (0.00-0.03); Imm Gran Pct Auto 0.3 % (0.0-0.4); Lymphocytes Absolute Auto 2.9 X10*3/uL (1.2-4.9); Lymphocytes Percent Auto 27.2 % (20-40); Mean Corpuscular HGB Conc 32.9 g/dl (31.0-35.0); Mean Corpuscular Hemoglobin 28.7 pg (27.0-33.0); Mean Platelet Volume 10.5 fL (9.4-12.3); Monocytes Absolute Auto 0.6 X10*3/uL (0.1-1.2); Monocytes Percent Auto 5.2 % (2-11); Neutrophils Absolute Auto 7.1 x10*3/uL (2.0-8.3); Neutrophils Percent Auto 66.3 % (45-73); Platelet Count 401 X10*3/uL (160-400); Red Blood Count 4.71 X10*6/uL (4.20-5.50); Red Cell Distribution Width 13.1 % (11.0-16.0); White Blood Count 10.7 X10*3/uL (4.8-10.8)
[2022-01-11 12:28] LABS: Alanine Aminotransferase 20 U/L (0-31); Albumin Level 4.3 g/dL (3.5-5.0); Alkaline Phosphatase 69 U/L (39-117); Anion Gap 14 (12-20); Aspartate Amino Transferase 21 U/L (5-31); Bilirubin Total 0.5 mg/dL (0.0-1.0); Blood Urea Nitrogen 13 mg/dL (9-16); C Reactive Protein 1.03 mg/dL (< or = 0.50); Calcium 9.9 mg/dL (8.4-10.2); Carbon Dioxide 23 mmol/L (22-29); Chloride 108 mmol/L (96-108); Estimated Glomerular Filt Rate > 60; Glucose Random 109 mg/dL (60-115); Potassium 4.8 mmol/L (3.3-5.1); Sodium 140 mmol/L (135-145); Total Protein 7.4 g/dL (6.5-8.0)
[2022-01-11 12:39] LABS: Erythrocyte Sedimentation Rate 27 MM/HR (0-20)
== END 2022-01-11 10:16 | disposition home or self-care (01) ==
LOC: HO.LAB 10:15
PROVIDERS: PCP Internal Medicine; Visit Provider Nurse Practitioner Family
DX: M05.9 Rheumatoid arthritis with rheumatoid factor, unspecified (principal); M79.7 Fibromyalgia; M81.0 Age-related osteoporosis without current pathological fracture; E11.65 Type 2 diabetes mellitus with hyperglycemia; I10 Essential (primary) hypertension; E03.9 Hypothyroidism, unspecified; E78.5 Hyperlipidemia, unspecified; E55.9 Vitamin D deficiency, unspecified; C50.912 Malignant neoplasm of unspecified site of left female breast; J30.81 Allergic rhinitis due to animal (cat) (dog) hair and dander; F17.210 Nicotine dependence, cigarettes, uncomplicated; U07.0 Vaping-related disorder; Z98.890 Other specified postprocedural states; Z88.8 Allergy status to other drugs, medicaments and biological substances; Z88.1 Allergy status to other antibiotic agents; Z91.013 Allergy to seafood; Z79.82 Long term (current) use of aspirin; Z79.4 Long term (current) use of insulin; Z79.899 Other long term (current) drug therapy
CPT/HCPCS: 36415; 80053; 85025; 85652; 86140; 99212

== ENCOUNTER → 2022-01-17 15:01 | Outpatient (BNVA) | payer MEDICARE, MEDICAID, SELFPAY | PROVIDERS: PCP Internal Medicine; Referring Provider Internal Medicine; Visit Provider Nurse Practitioner Family | DX: I21.4 Non-ST elevation (NSTEMI) myocardial infarction (principal); I16.0 Hypertensive urgency; I63.9 Cerebral infarction, unspecified; E78.5 Hyperlipidemia, unspecified; E11.9 Type 2 diabetes mellitus without complications; E55.9 Vitamin D deficiency, unspecified; F17.210 Nicotine dependence, cigarettes, uncomplicated; J30.81 Allergic rhinitis due to animal (cat) (dog) hair and dander; Z95.5 Presence of coronary angioplasty implant and graft; Z98.890 Other specified postprocedural states; Z85.3 Personal history of malignant neoplasm of breast; Z88.8 Allergy status to other drugs, medicaments and biological substances; Z91.013 Allergy to seafood; Z79.82 Long term (current) use of aspirin; Z79.4 Long term (current) use of insulin; Z79.899 Other long term (current) drug therapy | CPT/HCPCS: 99212 ==

== ENCOUNTER → 2022-01-18 13:17 | Outpatient (BNVA) | payer MEDICARE, MEDICAID, SELFPAY | PROVIDERS: PCP Internal Medicine; Referring Provider Internal Medicine; Visit Provider Internal Medicine Gastroenterology | DX: Z12.11 Encounter for screening for malignant neoplasm of colon (principal); K59.09 Other constipation; K57.30 Diverticulosis of large intestine without perforation or abscess without bleeding; K21.9 Gastro-esophageal reflux disease without esophagitis; R10.11 Right upper quadrant pain; R13.10 Dysphagia, unspecified; Z87.19 Personal history of other diseases of the digestive system | CPT/HCPCS: 99212 ==

== ENCOUNTER 2022-01-22 08:35 | Emergency (ER) | payer MEDICARE, MEDICAID, SELFPAY ==
--- NOTE | 2022-01-22 | ECG_ITS ---
Test Reason : CHEST PAIN Blood Pressure : / mmHG Vent. Rate : 079 BPM Atrial Rate : 079 BPM P-R Int : 154 ms QRS Dur : 084 ms QT Int : 376 ms P-R-T Axes : 081 078 072 degrees QTc Int : 431 ms Normal sinus rhythm Normal ECG When compared with ECG of 26-DEC-2021 12:55, No significant change was found Referred By: Cande Kelley Electronically Signed By:MARIA ELENA APODACA MD
--- NOTE | ~2022-01-22 | CT_ITS ---
EXAMINATION: CT ABDOMEN AND PELVIS WITH CONTRAST CLINICAL INFORMATION: Diffuse abdominal pain. COMPARISON: CT abdomen and pelvis 09/12/2021. TECHNIQUE: Multidetector volumetric images were obtained from the superior aspect of the liver through the pubic symphysis following administration 85 mL of Omnipaque 350 intravenous contrast. Sagittal and coronal reformatted images were obtained on the technologist's workstation. Oral contrast: No This CT examination was performed using dose optimization techniques as appropriate, variously including the following: *Automated exposure control *Adjustment of mA and/or kV according to patient size (this includes techniques or standardized protocols for targeted exams where dose is matched to indication/reason for exam; i.e. extremities or head) *Use of iterative reconstruction technique DLP: 263 mGy-cm FINDINGS: LUNG BASES: The visualized lung bases are unremarkable. LIVER, GALLBLADDER, AND BILIARY TREE: Fatty liver. No focal mass. No biliary ductal dilatation. The gallbladder is unremarkable with no evidence of radiopaque gallstones, gallbladder wall thickening, or obvious pericholecystic inflammatory changes. PANCREAS: Unremarkable. SPLEEN: Unremarkable. ADRENAL GLANDS: Unremarkable. KIDNEYS AND URETERS: The kidneys are normal in size, shape, and attenuation. No hydronephrosis, hydroureter, or calculi seen. No perinephric stranding. BLADDER: Unremarkable. GASTROINTESTINAL TRACT: Small bowel is normal in caliber. The appendix is normal. There is mild henry colonic diverticulosis. There is long segment circumferential wall thickening involving the distal descending colon and the sigmoid colon with hyperemic vasculature. The findings are consistent with an infectious or inflammatory colitis. There is no evidence of perforation. No abscess collection. No pneumatosis or portal venous gas. There is no evidence of bowel obstruction. ABDOMINAL WALL: No significant hernia is appreciated. LYMPH NODES: Normal. VASCULAR: Moderate aortoiliac atherosclerosis. No aortic aneurysm. The celiac, SMA, and [place] are patent. Renal arteries are patent. PELVIC VISCERA: Hysterectomy. No pelvic mass. OSSEOUS STRUCTURES: Mild degenerative changes at L5-S1. CT/CT abdomen pelvis w con IMPRESSION: Segmental colitis involving the distal descending colon and the sigmoid colon most consistent with an infectious/inflammatory colitis. Fleischner guidelines were followed.
[2022-01-22 08:49] VITALS: BP 121/89; PULSE 95; RESP 19; TEMP 36.6; O2SAT 99; BMI 24.8
[2022-01-22 09:17] LABS: MANUAL DIFF FLAG NO
[2022-01-22 09:19] LABS: Basophils Percent Auto 0.4 % (0-2); Eosinophils Absolute Auto 0.2 X10*3/uL (0.0-0.4); Eosinophils Percent Auto 1.8 % (0-4); Hematocrit 42.7 % (37.0-47.0); Hemoglobin 13.9 g/dl (12.0-16.0); Imm Gran Abs Auto 0.04 X10*3/uL (0.00-0.03); Imm Gran Pct Auto 0.4 % (0.0-0.4); Lymphocytes Absolute Auto 2.7 X10*3/uL (1.2-4.9); Lymphocytes Percent Auto 26.6 % (20-40); Mean Corpuscular HGB Conc 32.6 g/dl (31.0-35.0); Mean Corpuscular Hemoglobin 28.5 pg (27.0-33.0); Mean Corpuscular Volume 87.5 fL (80.0-98.0); Mean Platelet Volume 10.5 fL (9.4-12.3); Monocytes Absolute Auto 0.5 X10*3/uL (0.1-1.2); Monocytes Percent Auto 4.9 % (2-11); Neutrophils Absolute Auto 6.6 x10*3/uL (2.0-8.3); Neutrophils Percent Auto 65.9 % (45-73); Platelet Count 340 X10*3/uL (160-400); Red Blood Count 4.88 X10*6/uL (4.20-5.50); Red Cell Distribution Width 13.7 % (11.0-16.0)
[2022-01-22 09:27] LABS: INTERNATIONAL NORM RATIO 1.1 (0.9-1.1); Prothrombin Time 12.9 SEC (9.9-13.0)
[2022-01-22 09:32] LABS: Anion Gap 13 (12-20); Blood Urea Nitrogen 10 mg/dL (9-16); Calcium 9.8 mg/dL (8.4-10.2); Carbon Dioxide 25 mmol/L (22-29); Chloride 111 mmol/L (96-108); Creatinine Clr Calc Pharmacy 47.4; Estimated Glomerular Filt Rate > 60; Glucose Random 190 mg/dL (60-115); Sodium 144 mmol/L (135-145)
--- NOTE | 2022-01-22 11:41 | ED_ITS ---
HPI - Abdominal Pain General Chief Complaint: Abdominal Pain Stated Complaint: stomach cramps/diarrhea Time Seen by Provider: 01/22/22 11:32 Source: patient Mode of arrival: ambulatory Limitations: no limitations History of Present Illness HPI narrative: Patient comes to the emergency room complaining of diffuse abdominal pain/cramping since this morning. Patient reports multiple episodes of diarrhea and blood mixed in the stool. Patient denies history of hemorrhoids. Patient known to have history of colitis. Patient complaining of nausea, no vomiting, no fever chills. Related Data Home Medications Medication Instructions Recorded Confirmed blood sugar diagnostic (FreeStyle 12/26/21 01/18/22 Lite Strips) butalbital 50 mg-acetaminophen 325 1 cap PO Q4H PRN 12/26/21 01/18/22 mg-caffeine 40 mg-codeine 30 mg cap cholecalciferol (vitamin D3) 25 1 tab PO DAILY 12/26/21 01/18/22 mcg (1,000 unit) tablet dulaglutide 1.5 mg/0.5 mL 0.5 ml SUBCUT QWEEK 12/26/21 01/18/22 subcutaneous pen injector (Trulicity) insulin aspart U-100 100 unit/mL See Protocol SUBCUT TIDAC 12/26/21 01/18/22 (3 mL) subcutaneous pen (Novolog Flexpen U-100 Insulin aspart) insulin degludec 100 unit/mL (3 46 unit SUBCUT DAILY 12/26/21 01/18/22 mL) subcutaneous pen (Tresiba FlexTouch U-100 insulin) pregabalin 200 mg capsule 1 cap PO BEDTIME 12/26/21 01/18/22 tizanidine 2 mg tablet 1 tab PO BEDTIME PRN 12/26/21 01/18/22 nitroglycerin 0.4 mg sublingual 0 mg SUBLINGUAL 01/03/22 01/18/22 tablet ticagrelor 90 mg tablet (Brilinta) 90 mg PO BID 01/03/22 01/18/22 pregabalin 150 mg capsule (Lyrica) 150 mg PO DAILY 01/11/22 01/18/22 Previous Rx's Medication Instructions Recorded pen needle, diabetic 31 gauge x #200 ea 03/21/2104/02 (Comfort EZ Pen [place]) Advair HFA 230 mcg-21 2 puff PO BID #12 g NS 05/15/21 mcg/actuation aerosol inhaler (fluticasone propion-salmeterol) ipratropium 0.5 mg-albuterol 3 mg 3 ml INHALATION Q6H PRN #180 ml 08/04/21 (2.5 mg base)/3 mL nebulization soln lamotrigine 25 mg tablet 25 mg PO BID 90 Days #180 tab 09/18/21 letrozole 2.5 mg tablet 2.5 mg PO DAILY #90 tab 11/08/21 abatacept 125 mg/mL subcutaneous 125 mg SUBCUT QWEEK #4 ml 11/21/21 auto-injector (Orencia ClickJect) albuterol sulfate 90 mcg/actuation 1 inh INHALATION QID PRN #8.5 g 12/20/21 aerosol inhaler trazodone 100 mg tablet 100 mg PO BEDTIME 90 Days #90 tab 12/20/21 aspirin 81 mg tablet,delayed 81 mg PO DAILY #30 tab 12/26/21 release atorvastatin 80 mg tablet 80 mg PO DAILY #30 tab 12/26/21 metoprolol tartrate 25 mg tablet 12.5 mg PO BID #14 tab 12/26/21 losartan 25 mg tablet 25 mg PO DAILY #30 tab 01/17/22 pantoprazole 40 mg tablet,delayed 40 mg PO BID 30 Days #60 tab 01/18/22 release levofloxacin 500 mg tablet 500 mg PO DAILY #9 tab 01/22/22 metronidazole 500 mg tablet 500 mg PO BID #19 tab 01/22/22 tramadol 50 mg tablet 50 mg PO BID PRN #6 tab 01/22/22 Allergies Allergy/AdvReac Type Severity Reaction Status Date / Time dog dander [DOGS] Allergy Intermediate Respiratory Verified 01/18/22 13:19 distress ibuprofen [Ibuprofen] Allergy Intermediate STOMACH Verified 01/18/22 13:19 UPSET, abdominal pain, nausea and vomiting shellfish derived Allergy Intermediate Hives Verified 01/18/22 13:19 etanercept [From Enbrel] AdvReac Intermediate Facial Verified 01/18/22 13:19 Swelling metformin AdvReac Intermediate diarrhea Verified 01/18/22 13:19 metronidazole [From FLAGYL] AdvReac Intermediate DIARRHEA Verified 01/18/22 13:19 prednisone AdvReac Intermediate hallucinations, Verified 01/18/22 13:19 higher than 20 Review of Systems Review of Systems Constitutional : No Weight loss, No Fever, No Chills, No Night Sweats, No Fatigue, No Malaise ENT/Mouth : No Hearing loss, No Ear Pain, No Nasal Congestion, No Sinus Pain, No Hoarseness, No sore throat, No Rhinorrhea, No Swallowing Difficulty Eyes: No Eye Pain, No Swelling, No Redness, No Foreign Body, No Discharge, No Vision Changes Cardiovascular : No Chest Pain, No SOB, No Dyspnea on Exertion, No Orthopnea, No Edema, No Palpitations Respiratory : No Cough, No Sputum, No Wheezing, No Smoke Exposure, No Dyspnea Gastrointestinal : Complaining of nausea, no vomiting, complaining of diarrhea and blood per rectum, no hemorrhoids. Complaining of diffuse abdominal cramping. Genitourinary : no irregular bleeding, No Dysuria, No Urinary Frequency, No Hematuria, No Urinary Incontinence, No Urgency, No Flank Pain, No Urinary Flow Changes, No Hesitancy Musculoskeletal : No joint pain, No Myalgias, No Joint Swelling Skin : No Skin Lesions, No rash Neuro : No Weakness, No Numbness, No Paresthesias, No Loss of Consciousness, No Dizziness, No Headache Psych : No Anxiety/Panic, No Depression, No SI/HI/AH/VH, No Social Issues, Heme/Lymph: No Bruising, No Bleeding,No Lymphadenopathy Endocrine : No Polyuria, No Polydipsia, No Temperature Intolerance PMFSH Past Medical History Medical History Allergic rhinitis Allergic rhinitis Allergic rhinitis Anxiety Asthma Asthma Bipolar 1 disorder, depressed Bloody diarrhea Breast cancer Breast pain, right Bronchial asthma Colitis COPD (chronic obstructive pulmonary disease) Cough Depression Diabetes mellitus Diabetes type 2, uncontrolled Dyslipidemia Fibromyalgia Hyperlipidemia LDL goal <100 Hyperparathyroidism Hypertension Hypothyroid Hypothyroid IDDM (insulin dependent diabetes mellitus) IDDM (insulin dependent diabetes mellitus) Infiltrating ductal carcinoma of left breast, stage 2 Insomnia Irritable bowel Osteoporosis PAD (peripheral artery disease) Rash Reactive airways dysfunction syndrome Restrictive airway disease Rheumatoid arthritis Seropositive rheumatoid arthritis T2DM (type 2 diabetes mellitus) Thyroid nodule Vitamin D deficiency Surgical History H/O cardiac catheterization H/O: hysterectomy History of bunionectomy of both great toes History of colonoscopy History of esophagogastroduodenoscopy (EGD) History of lumpectomy of left breast History of pubovaginal sling History of tubal ligation Family History Family History Mother Diabetes HTN (hypertension) Uterus cancer Malignant tumor of head Breast cancer Father Diabetes HTN (hypertension) CVD (cardiovascular disease) Heart problem Maternal Aunt Breast cancer Brother Myocardial infarction S/P CABG x 4 Family/Other FH: mental illness Other Mental health disorder Social History Social History Household Members: Family Household Members Other:: sister Housing: Apartment Do you presently have visiting nurse or other home services: Yes (sister=human resource professional) Alcohol intake: never Patient Tobacco Use Status: Former Tobacco user Quit Date: 08/18/2021 Tobacco use type: Cigarette Cigarettes Per Day: 2 Years Smoked: 46 e-Cigarette/Vaping Use: Former Use Second Hand Smoke Exposure: No Use of substances other than those prescribed or required for medical reasons: No Advance Directives: Yes Advance Directives on File: Yes Advance Directives Date on File: 12/22/21 Patient : No service: No Current occupational status: disabled Current occupation: rt handed Cognitive needs: No Hearing needs: No Vision needs: No Physical Exam ED Vital Signs: Vital Signs - 24 hr 01/22/22 08:49 01/22/22 11:59 01/22/22 13:40 Temperature 98 F 99.0 F Pulse Rate 95 91 79 Respiratory Rate 19 16 18 Blood Pressure 121/89 179/89 H 196/78 H Pulse Oximetry 99 97 97 BMI result Body Mass Index 24.8 Const Other: Appearance: Alert. Oriented X3. No acute distress. Curled in bed in position Eyes: Pupils equal, round and reactive to light. ENT: Pharynx normal. Neck: Normal inspection. Neck supple. No lymph nodes noted. No crepitus CVS: Normal heart rate and rhythm. Pulses normal. Normal S1 and S2 Respiratory: No respiratory distress. Breath sounds normal. No Wheezing. No rales Abdomen: Soft, moderate tenderness in all 4 quadrants, no rigidity, no distension, no guarding. Digital rectal exam shows scant amount of blood Skin: Skin warm and dry. Normal skin color. Normal skin turgor. Extremities: No lower extremity edema. No Lacerations. No Rash Neuro: Oriented X 3. No motor deficit. No sensory deficit. Moving all extermities. No slurred speech. Course Course Course Narrative: Patient is not getting IV fluids, 2 mg of morphine. White blood cell count within normal limits. Head CT and EKG pending. Patient has no chest pain or shortness of breath. CT scan shows that patient has colitis. Patient given 1 dose of Levaquin. Patient declined taking metronidazole, states he gives her diarrhea. However, patient already has diarrhea. Patient's prescriptions switched to Augmentin MDM - Abdominal Pain Lab Data Result diagrams: 01/22/22 09:11 01/22/22 09:11 Labs: Lab Results 01/22/22 01/22/22 01/22/22 Range/Units 09:11 09:11 09:11 WBC 10.0 (4.8-10.8) X10*3/uL RBC 4.88 (4.20-5.50) X10*6/uL Hgb 13.9 (12.0-16.0) g/dl Hct 42.7 (37.0-47.0) % MCV 87.5 (80.0-98.0) fL MCH 28.5 (27.0-33.0) pg MCHC 32.6 (31.0-35.0) g/dl RDW 13.7 (11.0-16.0) % Plt Count 340 (160-400) X10*3/uL MPV 10.5 (9.4-12.3) fL Immature Gran % (Auto) 0.4 (0.0-0.4) % Neut % (Auto) 65.9 (45-73) % Lymph % (Auto) 26.6 (20-40) % [place]ulloch % (Auto) 4.9 (2-11) % Eos % (Auto) 1.8 (0-4) % Baso % (Auto) 0.4 (0-2) % Lymph # (Auto) 2.7 (1.2-4.9) X10*3/uL [place] # (Auto) 0.5 (0.1-1.2) X10*3/uL Eos # (Auto) 0.2 (0.0-0.4) X10*3/uL Baso # (Auto) 0.0 (0.0-0.2) X10*3/uL Abs Immat Gran (auto) 0.04 H (0.00-0.03) X10*3/uL Absolute Neuts (auto) 6.6 (2.0-8.3) x10*3/uL Absolute Nucleated RBC 0.000 (0.0-0.012) X10*3/uL Nucleated RBC % (auto) 0.0 (0.0-0.2) /100WBC PT 12.9 (9.9-13.0) SEC INR 1.1 (0.9-1.1) Sodium 144 (135-145) mmol/L Potassium 5.0 (3.3-5.1) mmol/L Chloride 111 H (96-108) mmol/L Carbon Dioxide 25 (22-29) mmol/L Anion Gap 13 (12-20) BUN 10 (9-16) mg/dL Creatinine 0.93 (0.5-1.4) mg/dL Estim Creat Clear Calc 47.4 Estimated GFR > 60 Random Glucose 190 H (60-115) mg/dL Calcium 9.8 (8.4-10.2) mg/dL Stool Occult Blood (NEGATIVE) 01/22/22 Range/Units 12:26 WBC (4.8-10.8) X10*3/uL RBC (4.20-5.50) X10*6/uL Hgb (12.0-16.0) g/dl Hct (37.0-47.0) % MCV (80.0-98.0) fL MCH (27.0-33.0) pg MCHC (31.0-35.0) g/dl RDW (11.0-16.0) % Plt Count (160-400) X10*3/uL MPV (9.4-12.3) fL Immature Gran % (Auto) (0.0-0.4) % Neut % (Auto) (45-73) % Lymph % (Auto) (20-40) % [place] % (Auto) (2-11) % Eos % (Auto) (0-4) % Baso % (Auto) (0-2) % Lymph # (Auto) (1.2-4.9) X10*3/uL [place] # (Auto) (0.1-1.2) X10*3/uL Eos # (Auto) (0.0-0.4) X10*3/uL Baso # (Auto) (0.0-0.2) X10*3/uL Abs Immat Gran (auto) (0.00-0.03) X10*3/uL Absolute Neuts (auto) (2.0-8.3) x10*3/uL Absolute Nucleated RBC (0.0-0.012) X10*3/uL Nucleated RBC % (auto) (0.0-0.2) /100WBC PT (9.9-13.0) SEC INR (0.9-1.1) Sodium (135-145) mmol/L Potassium (3.3-5.1) mmol/L Chloride (96-108) mmol/L Carbon Dioxide (22-29) mmol/L Anion Gap (12-20) BUN (9-16) mg/dL Creatinine (0.5-1.4) mg/dL Estim Creat Clear Calc Estimated GFR Random Glucose (60-115) mg/dL Calcium (8.4-10.2) mg/dL Stool Occult Blood POSITIVE (NEGATIVE) Imaging Data CT scan - abdomen: Radiologist's impression: FINDINGS: LUNG BASES: The visualized lung bases are unremarkable.? LIVER, GALLBLADDER, AND BILIARY TREE: Fatty liver. No focal mass. No biliary ductal dilatation. The gallbladder is unremarkable with no evidence of radiopaque gallstones, gallbladder wall thickening, or obvious pericholecystic inflammatory changes.? PANCREAS: Unremarkable.? SPLEEN: Unremarkable.? ADRENAL GLANDS: Unremarkable.? KIDNEYS AND URETERS: The kidneys are normal in size, shape, and attenuation. No hydronephrosis, hydroureter, or calculi seen. No perinephric stranding. ? BLADDER: Unremarkable.? GASTROINTESTINAL TRACT: Small bowel is normal in caliber. The appendix is normal. There is mild henry colonic diverticulosis. There is long segment circumferential wall thickening involving the distal descending colon and the sigmoid colon with hyperemic vasculature. The findings are consistent with an infectious or inflammatory colitis. There is no evidence of perforation. No abscess collection. No pneumatosis or portal venous gas. There is no evidence of bowel obstruction. ABDOMINAL WALL: No significant hernia is appreciated.? LYMPH NODES: Normal. VASCULAR: Moderate aortoiliac atherosclerosis. No aortic aneurysm. The celiac, SMA, and [place] are patent. Renal arteries are patent. PELVIC VISCERA: Hysterectomy. No pelvic mass.? OSSEOUS STRUCTURES: Mild degenerative changes at L5-S1.? CT/CT abdomen pelvis w con IMPRESSION: Segmental colitis involving the distal descending colon and the sigmoid colon most consistent with an infectious/inflammatory colitis. Discharge Plan Discharge Clinical Impression: Colitis Patient Disposition: Home, Self-Care Instructions: Colitis (ED) Additional Instructions: Please follow-up with your primary care physician tomorrow. If you have any worsening or new symptoms, please return to the emergency room or call 911 Prescriptions: New levofloxacin 500 mg tablet 500 mg PO DAILY Qty: 9 0RF Rx Instructions: Start 01/23/2022 metronidazole 500 mg tablet 500 mg PO BID Qty: 19 0RF Rx Instructions: Start 01/22/2022 at bedtime tramadol 50 mg tablet 50 mg PO BID PRN (Reason: pain) Qty: 6 0RF No Action Advair HFA 230-21 mcg/actuation HFA aerosol inhaler 2 puff PO BID Qty: 12 3RF ipratropium-albuterol 0.5 mg-3 mg(2.5 mg base)/3 mL solution for nebulization 3 ml inhalation Q6H PRN (Reason: for wheezing) Qty: 180 2RF Orencia ClickJect 125 mg/mL auto-injector 125 mg subcut QWEEK Qty: 4 3RF trazodone 100 mg tablet 100 mg PO BEDTIME 90 Days Qty: 90 0RF letrozole 2.5 mg Tablet 2.5 mg PO DAILY Qty: 90 4RF tizanidine 2 mg tablet 1 tab PO BEDTIME PRN (Reason: muscle spasm) 0RF (DME) FreeStyle Lite Strips Strip MISCELLANEOUS DAILY 0RF pregabalin 200 mg capsule 1 cap PO BEDTIME 0RF cholecalciferol (vitamin D3) 25 mcg (1,000 unit) tablet 1 tab PO DAILY 0RF Tresiba FlexTouch U-100 100 unit/mL (3 mL) insulin pen 46 unit subcut DAILY 0RF Trulicity 1.5 mg/0.5 mL pen injector 0.5 ml subcut QWEEK 0RF [id number]-cod [id number] mg capsule 1 cap PO Q4H PRN (Reason: Headache) 0RF insulin aspart U-100 [Novolog Flexpen U-100 Insulin] 100 unit/mL (3 mL) insulin pen See Protocol sliding scale dose subcut TIDAC 0RF Protocol: Insulin Correction Scale Less than or equal to 110 ---- Give (units): 0 111 to 150 Give (units): 0 151 to 200 Give (units): 2 201 to 250 Give (units): 4 251 to 300 Give (units): 6 301 to 350 Give (units): 8 Greater than 350 Give (units): 10 Call MD if Blood Glucose > : 350 aspirin 81 mg Tablet,Delayed Release (Dr/Ec) 81 mg PO DAILY Qty: 30 0RF atorvastatin 80 mg Tablet 80 mg PO DAILY Qty: 30 0RF metoprolol tartrate 25 mg tablet 12.5 mg PO BID Qty: 14 0RF (DME) pen needle, diabetic [Comfort EZ Pen [place]] 31 gauge x 5/16 needle See Rx Instructions .ROUTE .MEDSUPPLY Qty: 200 11RF Rx Instructions: Use 1 pen needle 6 times a day lamotrigine 25 mg tablet 25 mg PO BID 90 Days Qty: 180 1RF nitroglycerin 0.4 mg tablet, sublingual 0 mg sublingual 0RF Brilinta 90 mg tablet 90 mg PO BID 0RF albuterol sulfate 90 mcg/actuation HFA aerosol inhaler 1 inh inhalation QID PRN (Reason: shortness of breath or wheezing) Qty: 8.5 0RF Rx Instructions: please fill and release for 1 time emergency, patient lost her other one losartan 25 mg tablet 25 mg PO DAILY Qty: 30 0RF pregabalin [Lyrica] 150 mg capsule 150 mg PO DAILY 0RF pantoprazole 40 mg tablet,delayed release (DR/EC) 40 mg PO BID 30 Days Qty: 60 2RF Interventions: ED Discharge Assessment Last Done: 01/22/22 13:57
[2022-01-22 11:59] VITALS: BP 179/89; PULSE 91; RESP 16; TEMP 37.2; O2SAT 97
[2022-01-22] MEDS: Morphine Sulfate 2 MG/ML CARTRIDGE IVPUSH (12:24)
[2022-01-22] MEDS: 0.9 % Sodium Chloride 1,000 ML 999 ML IVCONT (12:25)
[2022-01-22] MEDS: ondansetron HCL 4 MG/2 ML VIAL IVPUSH (12:25)
--- NOTE | 2022-01-22 12:29 | PC.NURSE ---
pt a&ox3, vss - bp slightly elevated, cardiac cath technician applied, NSR, occult stool sample + w provider, 22G IV placed left AC - pt to CT. pt reports abd cramping and rectal bleeding starting at 0730 today. has been having GI upset since [facility] admission in Dec. last bowel movement at 0800, still having the urge to go, but is now just dark blood. pt on blood thinners.
[2022-01-22 12:35] LABS: OBS Int Ctl Valid YES; OBS1 POSITIVE (NEGATIVE)
[2022-01-22] MEDS: iohexoL 350 MG/ML 100 ML INFUS..BTL IV (12:47)
--- NOTE | 2022-01-22 13:24 | PC.NURSE ---
patient a&ox3, pt still c/o abd pain, will notify provider.
[2022-01-22 13:40] VITALS: BP 196/78; PULSE 79; RESP 18; O2SAT 97
--- NOTE | 2022-01-22 13:45 | PC.NURSE ---
ivf continue to run slowly
[2022-01-22] MEDS: metroNIDAZOLE 500 MG TABLET PO (13:55)
[2022-01-22] MEDS: levoFLOXacin 500 MG TABLET PO (13:55)
[2022-01-22 14:03] LABS: Appearance Urine CLEAR; Color Urine STRAW; Glucose Urine UA NEG (NEG); Leukocyte Esterase Urine NEG (NEG); Nitrite Urine NEG (NEG); PH 5.5 (5.0-8.0); Specific Gravity - Urine <= 1.005 (1.005-1.025); UACC Culture Trigger NO; Urine Blood TRACE (NEG); Urine Ketones NEG (NEG); Urine Protein NEG (NEG-TRACE)
[2022-01-22 14:20] LABS: RBC Urine 0-2 /HPF (0); Squamous Epithelial Cell Urine TRACE /LPF; WBC Urine 0 /HPF (0-4)
== END 2022-01-22 14:07 | disposition home or self-care (01) ==
PROVIDERS: Emergency Provider Emergency Medicine; PCP Internal Medicine
DX: K52.9 Noninfective gastroenteritis and colitis, unspecified (principal); E11.9 Type 2 diabetes mellitus without complications; I10 Essential (primary) hypertension; E78.5 Hyperlipidemia, unspecified; Z79.4 Long term (current) use of insulin; Z79.02 Long term (current) use of antithrombotics/antiplatelets; Z95.5 Presence of coronary angioplasty implant and graft; Z79.82 Long term (current) use of aspirin
CPT/HCPCS: 36415; 74177; 80048; 81001; 81003; 82272; 85025; 85610; 93005; 96361; 96374; 96375; 99284; 99285; J2270; J2405; Q9967

== ENCOUNTER 2022-01-30 08:55 | Outpatient (REF) | payer MEDICARE, MEDICAID, SELFPAY ==
[2022-01-30 10:05] LABS: Alanine Aminotransferase 25 U/L (0-31); Albumin Level 3.9 g/dL (3.5-5.0); Alkaline Phosphatase 58 U/L (39-117); Anion Gap 13 (12-20); Aspartate Amino Transferase 22 U/L (5-31); Bilirubin Total 0.3 mg/dL (0.0-1.0); Blood Urea Nitrogen 8 mg/dL (9-16); Carbon Dioxide 25 mmol/L (22-29); Chloride 110 mmol/L (96-108); Cholesterol 90 mg/dL; Estimated Glomerular Filt Rate > 60; Glucose Fasting 174 mg/dL (60-99); HDL Cholesterol 26 mg/dL; LDL Cholesterol Calculated 35 mg/dl; Potassium 4.6 mmol/L (3.3-5.1); Sodium 143 mmol/L (135-145); Total Protein 6.7 g/dL (6.5-8.0); Triglycerides 146 mg/dL
[2022-01-30 11:26] LABS: Creatinine Urine 195.02 mg/dL; Microalbum/Creatinine Ratio Ur 4.6 ug/mg cr
[2022-02-03 14:22] LABS: Vitamin D 25-OH, D2 <4 ng/mL; Vitamin D 25-OH, D3 32 ng/mL; Vitamin D 25-OH, Total 32 ng/mL (30-100)
== END 2022-01-30 08:56 | disposition home or self-care (01) ==
LOC: HO.LAB 08:55
PROVIDERS: PCP Internal Medicine; Visit Provider Internal Medicine
DX: E11.9 Type 2 diabetes mellitus without complications (principal); E78.5 Hyperlipidemia, unspecified; E55.9 Vitamin D deficiency, unspecified
CPT/HCPCS: 36415; 80053; 80061; 82043; 82306; 99212

== ENCOUNTER 2022-01-30 13:16 | Observation (INO) | payer MEDICARE, MEDICAID, SELFPAY ==
[2022-01-30 13:25] VITALS: BP 120/79; PULSE 82; RESP 20; TEMP 36.6; O2SAT 98; BMI 26.1
--- NOTE | 2022-01-30 13:31 | ECG_ITS ---
Test Reason : CHEST PAIN Blood Pressure : / mmHG Vent. Rate : 087 BPM Atrial Rate : 087 BPM P-R Int : 142 ms QRS Dur : 084 ms QT Int : 366 ms P-R-T Axes : 083 083 068 degrees QTc Int : 440 ms Normal sinus rhythm Normal ECG When compared with ECG of 22-JAN-2022 12:44, No significant change was found Referred By: Generic ED Physician Electronically Signed By:MICHELL MONTES
[2022-01-30 13:54] LABS: MANUAL DIFF FLAG NO
[2022-01-30 13:56] LABS: Basophils Percent Auto 0.4 % (0-2); Eosinophils Absolute Auto 0.1 X10*3/uL (0.0-0.4); Hematocrit 39.6 % (37.0-47.0); Hemoglobin 12.9 g/dl (12.0-16.0); Imm Gran Abs Auto 0.03 X10*3/uL (0.00-0.03); Imm Gran Pct Auto 0.3 % (0.0-0.4); Lymphocytes Percent Auto 30.8 % (20-40); Mean Corpuscular HGB Conc 32.6 g/dl (31.0-35.0); Mean Corpuscular Hemoglobin 28.8 pg (27.0-33.0); Mean Corpuscular Volume 88.4 fL (80.0-98.0); Mean Platelet Volume 10.9 fL (9.4-12.3); Monocytes Absolute Auto 0.5 X10*3/uL (0.1-1.2); Monocytes Percent Auto 5.2 % (2-11); Neutrophils Absolute Auto 6.1 x10*3/uL (2.0-8.3); Neutrophils Percent Auto 62.3 % (45-73); Platelet Count 286 X10*3/uL (160-400); Red Blood Count 4.48 X10*6/uL (4.20-5.50); Red Cell Distribution Width 13.8 % (11.0-16.0); White Blood Count 9.8 X10*3/uL (4.8-10.8)
[2022-01-30 14:16] LABS: Anion Gap 12 (12-20); Blood Urea Nitrogen 8 mg/dL (9-16); Calcium 9.3 mg/dL (8.4-10.2); Carbon Dioxide 24 mmol/L (22-29); Chloride 109 mmol/L (96-108); Creatinine Clr Calc Pharmacy 57.9; Estimated Glomerular Filt Rate > 60; Glucose Random 141 mg/dL (60-115); Potassium 4.2 mmol/L (3.3-5.1); Sodium 141 mmol/L (135-145)
[2022-01-30 14:23] LABS: Troponin-I High Sensitivity 5.2 ng/L (<3.5-17.0)
--- NOTE | 2022-01-30 18:36 | ED_ITS ---
HPI - Chest Pain General Chief Complaint: Chest Pain Stated Complaint: chest pain Time Seen by Provider: 01/30/22 18:36 Source: patient Mode of arrival: ambulatory Limitations: no limitations History of Present Illness HPI narrative: chest pain at noon went into her back, sharp and left shoulder blade. Patient still feeling chest tightness and some shortness of breath. Patient states that she had a heart attack and a stroke last month. She had two stents placed at [facility]. Patient had normal EKGs but her troponins became elevated. Patient did not have her ASA or long MD complaint: chest pain Pertinent past history: coronary artery disease Onset (ago): hour(s) Timing of current episode: episodic Onset: during rest Associated symptoms: other (shhortness of breath and lightheadedness and abdominal pain) Treatment prior to arrival: none Related Data Home Medications Medication Instructions Recorded Confirmed blood sugar diagnostic (FreeStyle 12/26/21 01/23/22 Lite Strips) dulaglutide 1.5 mg/0.5 mL 0.5 ml SUBCUT WE 12/26/21 01/30/22 subcutaneous pen injector (Trulicity) insulin aspart U-100 100 unit/mL See Protocol SUBCUT TIDAC 12/26/21 01/30/22 (3 mL) subcutaneous pen (Novolog Flexpen U-100 Insulin aspart) pregabalin 200 mg capsule 1 cap PO BEDTIME 12/26/21 01/30/22 tizanidine 2 mg tablet 1 tab PO BEDTIME PRN 12/26/21 01/30/22 nitroglycerin 0.4 mg sublingual 0.4 mg SUBLINGUAL Q5M PRN 01/03/22 01/30/22 tablet insulin degludec 100 unit/mL (3 46 unit SUBCUT DAILY ml 01/23/22 01/30/22 mL) subcutaneous pen (Tresiba FlexTouch U-100 insulin) abatacept 125 mg/mL subcutaneous 125 mg SUBCUT WE 01/30/22 01/30/22 auto-injector (Orencia ClickJect) lamotrigine 25 mg tablet 25 mg PO BEDTIME 01/30/22 01/30/22 lisinopril 5 mg tablet 1 tab PO DAILY 01/30/22 01/30/22 Previous Rx's Medication Instructions Recorded pen needle, diabetic 31 gauge x #200 ea 05/04/21 5/16 (Comfort EZ Pen Baxter) letrozole 2.5 mg tablet 2.5 mg PO DAILY #90 tab 11/08/21 albuterol sulfate 90 mcg/actuation 1 inh INHALATION QID PRN #8.5 g 12/20/21 aerosol inhaler amoxicillin 500 mg-potassium 1 tab PO BID #20 tab 01/22/22 clavulanate 125 mg tablet (Augmentin) acetaminophen 300 mg-codeine 30 mg 1 tab PO Q8H PRN 7 Days #21 tab 01/23/22 tablet losartan 25 mg tablet 25 mg PO DAILY 90 Days #90 tab 01/24/22 pantoprazole 40 mg tablet,delayed 40 mg PO BID #180 tab 01/24/22 release trazodone 100 mg tablet 100 mg PO BEDTIME 90 Days #90 tab 01/24/22 aspirin 81 mg tablet,delayed 81 mg PO DAILY 90 Days #90 tab 01/29/22 release atorvastatin 80 mg tablet 80 mg PO DAILY 90 Days #90 tab 01/29/22 metoprolol tartrate 25 mg tablet 12.5 mg PO BID 90 Days #90 tab 01/29/22 ticagrelor 90 mg tablet (Brilinta) 90 mg PO BID 90 Days #180 tab 01/29/22 Allergies Allergy/AdvReac Type Severity Reaction Status Date / Time dog dander [DOGS] Allergy Intermediate Respiratory Verified 01/30/22 09:36 distress ibuprofen [Ibuprofen] Allergy Intermediate STOMACH Verified 01/30/22 09:36 UPSET, abdominal pain, nausea and vomiting shellfish derived Allergy Intermediate Hives Verified 01/30/22 09:36 etanercept [From Enbrel] AdvReac Intermediate Facial Verified 01/30/22 09:36 Swelling metformin AdvReac Intermediate diarrhea Verified 01/30/22 09:36 metronidazole [From FLAGYL] AdvReac Intermediate DIARRHEA Verified 01/30/22 09:36 prednisone AdvReac Intermediate hallucinations, Verified 01/30/22 09:36 higher than 20 Review of Systems Constitutional: Constitutional: Reports no additional constitutional complaints Eyes: Eyes: Reports no additional eye complaints ENT: Denies dizziness Cardiovascular: Cardiovascular: Reports no additional cardiovascular complaints Respiratory: Respiratory: Reports as per HPI Gastrointestinal: Gastrointestinal: Reports no additional gastrointestinal complaints Genitourinary: Genitourinary: Reports no additional female genitourinary c omplaints Musculoskeletal: Musculoskeletal: Reports no additional musculoskeletal complaints Integumentary/Breasts: Skin/Breast: Denies rash Neurologic: Reports system reviewed and no additional complaints, except as documented, Denies dizziness and Denies Sensory deficit (Neuro) Psychiatric: Psychiatric: Denies anxiety [facility] Past Medical History Medical History Allergic rhinitis Allergic rhinitis Allergic rhinitis Anxiety Asthma Asthma Bipolar 1 disorder, depressed Bloody diarrhea Breast cancer Breast pain, right Bronchial asthma Colitis Colitis COPD (chronic obstructive pulmonary disease) Cough Depression Diabetes mellitus Diabetes type 2, uncontrolled Dyslipidemia Fibromyalgia Hospital discharge follow-up Hyperlipidemia LDL goal <100 Hyperparathyroidism Hypertension Hypothyroid Hypothyroid IDDM (insulin dependent diabetes mellitus) IDDM (insulin dependent diabetes mellitus) Infiltrating ductal carcinoma of left breast, stage 2 Insomnia Irritable bowel Osteoporosis PAD (peripheral artery disease) Rash Reactive airways dysfunction syndrome Restrictive airway disease Rheumatoid arthritis Seropositive rheumatoid arthritis T2DM (type 2 diabetes mellitus) Thyroid nodule Vitamin D deficiency Surgical History H/O cardiac catheterization H/O: hysterectomy History of bunionectomy of both great toes History of colonoscopy History of esophagogastroduodenoscopy (EGD) History of lumpectomy of left breast History of pubovaginal sling History of tubal ligation Family History Family History Mother Diabetes HTN (hypertension) Uterus cancer Malignant tumor of head Breast cancer Father Diabetes HTN (hypertension) CVD (cardiovascular disease) Heart problem Maternal Aunt Breast cancer Brother Myocardial infarction S/P CABG x 4 Family/Other FH: mental illness Family/Other Lung cancer Other Mental health disorder Social History Social History Household Members: Family Household Members Other:: sister Housing: Apartment Do you presently have visiting nurse or other home services: Yes (sister=men's basketball coach) Alcohol intake: never Patient Tobacco Use Status: Former Tobacco user Quit Date: 08/18/2021 Tobacco use type: Cigarette Cigarettes Per Day: 2 Years Smoked: 46 e-Cigarette/Vaping Use: Former Use Second Hand Smoke Exposure: No Advance Directives: Yes Advance Directives on File: Yes Advance Directives Date on File: 12/22/21 Patient : No service: No Current occupational status: disabled Current occupation: rt handed Cognitive needs: No Hearing needs: No Vision needs: No Physical Exam Vital Signs: Vital Signs: Last Vital Signs Temp 98.8 F 01/30/22 21:33 Pulse 75 01/30/22 21:33 Resp 20 01/30/22 21:33 BP 158/84 H 01/30/22 21:33 Pulse Ox 96 01/30/22 21:33 BMI result Body Mass Index 26.1 Const: General: healthy appearing Nutritional Appearance: average body habitus Orientation/consciousness: oriented to person and patient oriented x3 Limitations: no limitations HENMT: Head: Yes normal to inspection Ears: external ears normal General nose exam: Normal external nose present Mouth: Normal oral and palatal mucosa present and oropharynx normal Throat: Yes posterior oropharynx normal Eyes: General: appearance normal, both eyes and all related structures Neck: Other: supple Neck: Yes normal visual inspection Chest: Chest palpation & inspection: normal inspection of the chest Resp: Auscultation: clear to auscultation bilaterally Cardio: Jugular venous distension: no JVD Rate: regular rate Rhythm: regular rhythm Heart sounds: S1 normal heart sound present and S2 normal heart sound present GI: Inspection: Yes normal to inspection Palpation (GI): Soft to palpation, nontender and No hepatosplenomegaly present Auscultation: normal bowel sounds : General: Yes no CVA tenderness Back/Spine/Pelvis: Back: no CVA tenderness Skin: General skin exam: no rashes or lesions noted Neuro: General: oriented to person and patient oriented x3 Cranial nerves: Yes CN's II-XII intact bilaterally Motor exam (neuro): 5/5 motor strength present throughout Sensory Exam: No Sensory deficit (Neuro) Extrem: General: Yes normal to inspection Psych: Appearance: grossly normal Course Reevaluation(s) Reevaluation #1: on last admission patient had normal EKG and troponins initially. Her EKGs remained normal but her troponin jimy to 4K and she eventually got stented at [facility] in circum[place]. Discussed with Dr. No who states to keep the patient Time: 19:14 MDM - Chest Pain Lab Data Result diagrams: 01/30/22 13:42 01/30/22 13:42 Labs: Lab Results 01/30/22 01/30/22 01/30/22 Range/Units 13:42 13:42 13:42 WBC 9.8 (4.8-10.8) X10*3/uL RBC 4.48 (4.20-5.50) X10*6/uL Hgb 12.9 (12.0-16.0) g/dl Hct 39.6 (37.0-47.0) % MCV 88.4 (80.0-98.0) fL MCH 28.8 (27.0-33.0) pg MCHC 32.6 (31.0-35.0) g/dl RDW 13.8 (11.0-16.0) % Plt Count 286 (160-400) X10*3/uL MPV 10.9 (9.4-12.3) fL Immature Gran % (Auto) 0.3 (0.0-0.4) % Neut % (Auto) 62.3 (45-73) % Lymph % (Auto) 30.8 (20-40) % Martin % (Auto) 5.2 (2-11) % Eos % (Auto) 1.0 (0-4) % Baso % (Auto) 0.4 (0-2) % Lymph # (Auto) 3.0 (1.2-4.9) X10*3/uL Martin # (Auto) 0.5 (0.1-1.2) X10*3/uL Eos # (Auto) 0.1 (0.0-0.4) X10*3/uL Baso # (Auto) 0.0 (0.0-0.2) X10*3/uL Abs Immat Gran (auto) 0.03 (0.00-0.03) X10*3/uL Absolute Neuts (auto) 6.1 (2.0-8.3) x10*3/uL Absolute Nucleated RBC 0.000 (0.0-0.012) X10*3/uL Nucleated RBC % (auto) 0.0 (0.0-0.2) /100WBC Sodium 141 (135-145) mmol/L Potassium 4.2 (3.3-5.1) mmol/L Chloride 109 H (96-108) mmol/L Carbon Dioxide 24 (22-29) mmol/L Anion Gap 12 (12-20) BUN 8 L (9-16) mg/dL Creatinine 0.78 (0.5-1.4) mg/dL Estim Creat Clear Calc 57.9 Estimated GFR > 60 Random Glucose 141 H (60-115) mg/dL Calcium 9.3 (8.4-10.2) mg/dL Troponin I High Sens 5.2 D (<3.5-17.0) ng/L Discharge Plan Discharge Clinical Impression: Chest pain Patient Disposition: Admitted As Inpatient
[2022-01-30] MEDS: Nitroglycerin 2 % Oint 1 GM Packet 1 INCH TRANSDERMA (19:06)
[2022-01-30] MEDS: Aspirin Enteric Coated 81 MG TABLET.DR PO (19:06)
[2022-01-30] MEDS: Ticagrelor 90 MG TABLET PO (19:06)
[2022-01-30 19:33] VITALS: BP 133/62; PULSE 79; RESP 20; TEMP 36.8; O2SAT 97
[2022-01-30 19:59] LABS: COVID-19 Test Negative (Negative)
[2022-01-30 20:11] LABS: Troponin-I High Sensitivity 7.9 ng/L (<3.5-17.0)
--- NOTE | 2022-01-30 20:13 | PC.NURSE ---
pt a&o, no sob and chest pain , Iv placed in right AC. Ua collceted and sent.
[2022-01-30 20:37] LABS: Glucose, Whole Blood 97 mg/dL (60-115)
--- NOTE | 2022-01-30 20:51 | PHA.MEDREC ---
Pharmacy Consult ? Medication Reconciliation Pharmacy has completed the medication reconciliation. Pt states that she take lamictal 25 mg at bedtime not bid
[2022-01-30] MEDS: HYDROmorphone HCl 0.5 MG/0.5 ML SYRINGE IVPUSH (21:12)
[2022-01-30 21:33] VITALS: BP 158/84; PULSE 75; RESP 20; TEMP 37.1; O2SAT 96
[2022-01-30 23:44] VITALS: BP 129/65; PULSE 78; RESP 18; O2SAT 98
--- NOTE | 2022-01-31 00:10 | PM.IMHP ---
History of Present Illness Date of Service: 01/30/22 Chief Complaint: chest pain 61-year-old female with a past medical history of hypertension, hyperlipidemia, diabetes, CAD-recent stents in December of 2021; history of breast cancer, peripheral arterial disease, reactive airway disease, rheumatoid arthritis, osteoporosis, fibromyalgia, anxiety, depression presented to the hospital today with a chief complaint of chest Chest pain. Patient reported that she recently had stent placed about a month ago - received 2 stents; presents today to the hospital with a chief complaint of chest pain. Mentions that today she developed chest pain located the center of the chest, tight in nature also had pain in her left scapula; denied any nausea vomiting or diarrhea. But had associated diaphoresis and lightheadedness. Denies any shortness of breath or dyspnea on exertion. Mentions her chest pain worsens with deep inspiration. Denies any fever chills cough. Denies any GI symptoms. Review of all other systems is negative except mentioned above ER course: Per ER team patient's EKG was nonischemic, troponins x2 negative; discussed with Cardiology Dr. No who recommended admission to the hospital for observation. patient on nitro patch placed. Patient was given Brilinta [facility] Medical History Allergic rhinitis Allergic rhinitis Allergic rhinitis Anxiety Asthma Asthma Bipolar 1 disorder, depressed Bloody diarrhea Breast cancer Breast pain, right Bronchial asthma Colitis Colitis COPD (chronic obstructive pulmonary disease) Cough Depression Diabetes mellitus Diabetes type 2, uncontrolled Dyslipidemia Fibromyalgia Hospital discharge follow-up Hyperlipidemia LDL goal <100 Hyperparathyroidism Hypertension Hypothyroid Hypothyroid IDDM (insulin dependent diabetes mellitus) IDDM (insulin dependent diabetes mellitus) Infiltrating ductal carcinoma of left breast, stage 2 Insomnia Irritable bowel Osteoporosis PAD (peripheral artery disease) Rash Reactive airways dysfunction syndrome Restrictive airway disease Rheumatoid arthritis Seropositive rheumatoid arthritis T2DM (type 2 diabetes mellitus) Thyroid nodule Vitamin D deficiency Family History Mother Diabetes HTN (hypertension) Uterus cancer Malignant tumor of head Breast cancer Father Diabetes HTN (hypertension) CVD (cardiovascular disease) Heart problem Maternal Aunt Breast cancer Brother Myocardial infarction S/P CABG x 4 Family/Other FH: mental illness Family/Other Lung cancer Other Mental health disorder Surgical History H/O cardiac catheterization H/O: hysterectomy History of bunionectomy of both great toes History of colonoscopy History of esophagogastroduodenoscopy (EGD) History of lumpectomy of left breast History of pubovaginal sling History of tubal ligation Social History Household Members: Family Household Members Other:: sister Housing: Apartment Do you presently have visiting nurse or other home services: Yes (sister=laser technician) Alcohol intake: never Patient Tobacco Use Status: Former Tobacco user Quit Date: 08/2021 Tobacco use type: Cigarette Cigarettes Per Day: 2 Years Smoked: 45 e-Cigarette/Vaping Use: Former Use Patient Interested in Nicotine Replacement: No Patient Given Instructions on How to Stop Smoking: Yes Date Education Initiated: 01/31/22 Second Hand Smoke Exposure: No Use of substances other than those prescribed or required for medical reasons: No Advance Directives: Yes Advance Directives on File: Yes Advance Directives Date on File: 12/22/21 Patient : No service: No Current occupational status: disabled Current occupation: rt handed Cognitive needs: No Hearing needs: No Vision needs: No Meds Allergies Allergy/AdvReac Type Severity Reaction Status Date / Time dog dander [DOGS] Allergy Intermediate Respiratory Verified 01/30/22 09:36 distress ibuprofen [Ibuprofen] Allergy Intermediate STOMACH Verified 01/30/22 09:36 UPSET, abdominal pain, nausea and vomiting shellfish derived Allergy Intermediate Hives Verified 01/30/22 09:36 etanercept [From Enbrel] AdvReac Intermediate Facial Verified 01/30/22 09:36 Swelling metformin AdvReac Intermediate diarrhea Verified 01/30/22 09:36 metronidazole [From FLAGYL] AdvReac Intermediate DIARRHEA Verified 01/30/22 09:36 prednisone AdvReac Intermediate hallucinations, Verified 01/30/22 09:36 higher than 20 Active Medications: Current Medications Dextrose (Dextrose 50 % 25 Gm/50 Ml Vial) 25 gm IVPUSH Q15M PRN; Protocol PRN Reason: per Hypoglycemia Standing Ord. Glucose (Glucose Gel 15 Gm Gel..Gram.) 15 gm PO Q15M PRN; Protocol PRN Reason: per Hypoglycemia Standing Ord. Insulin Human Lispro (Insulin Lispro 100 Unit/Ml 3 Ml Vial) 0 unit SUBCUT [facility]; Protocol Last Admin: 01/30/22 21:13 Dose: Not Given Documented by: Melatonin (Melatonin 3 Mg Tablet) 6 mg PO BEDTIME PRN PRN Reason: Insomnia Nitroglycerin (Nitroglycerin 0.4 Mg Tab.Subl) 0.4 mg SUBLINGUAL Q5MX3 PRN PRN Reason: Chest Pain Pharmacy Consult (Consult Rx Perform Med Rec) 1 each MISCELLANE ONCE PRN PRN Reason: Consult order Pharmacy Consult (Consult Rx Perform Med Rec) 1 each MISCELLANE ONCE PRN PRN Reason: Consult order Senna (Sennosides 8.6 Mg Tablet) 17.2 mg PO BEDTIME PRN PRN Reason: Constipation Sodium Chloride (0.9 % Sodium Chloride Flush 3 Ml Syringe) 3 ml IVFLUSH [facility] Home Medications Medication Instructions Recorded Confirmed Last Taken Type blood sugar diagnostic (FreeStyle 12/26/21 01/23/22 Unknown History Lite Strips) dulaglutide 1.5 mg/0.5 mL 0.5 ml SUBCUT WE 12/26/21 01/30/22 01/24/22 History subcutaneous pen injector (Trulicity) insulin aspart U-100 100 unit/mL See Protocol SUBCUT TIDAC 12/26/21 01/30/22 01/29/22 History (3 mL) subcutaneous pen (Novolog Flexpen U-100 Insulin aspart) pregabalin 200 mg capsule 1 cap PO BEDTIME 12/26/21 01/30/22 01/29/22 History tizanidine 2 mg tablet 1 tab PO BEDTIME PRN 12/26/21 01/30/22 Unknown History nitroglycerin 0.4 mg sublingual 0.4 mg SUBLINGUAL Q5M PRN 01/03/22 01/30/22 Unknown History tablet insulin degludec 100 unit/mL (3 46 unit SUBCUT DAILY ml 01/23/22 01/30/22 01/29/22 History mL) subcutaneous pen (Tresiba FlexTouch U-100 insulin) abatacept 125 mg/mL subcutaneous 125 mg SUBCUT WE 01/30/22 01/30/22 01/24/22 History auto-injector (Orencia ClickJect) lamotrigine 25 mg tablet 25 mg PO BEDTIME 01/30/22 01/30/22 01/29/22 History lisinopril 5 mg tablet 1 tab PO DAILY 01/30/22 01/30/22 01/29/22 History Physical Exam Vital Signs and Narrative: Vital Signs: Last Vital Signs Temp 98.8 F 01/30/22 21:33 Pulse 78 01/30/22 23:44 Resp 18 01/30/22 23:44 BP 129/65 01/30/22 23:44 Pulse Ox 98 01/30/22 23:44 BMI result Body Mass Index 26.1 Gen: Appears be in no acute distress HEENT: NCAT, Moist mucosa. Pulmonary: Vesicular breath sounds, fair air entry . Chest pain reproducible CVS: Normal S1-S2 Abdomen: BS+, Soft, Nontender Extremities: Warm well perfused Neuro: Alert and awake. Results Labs CBC and Chem 7: 01/30/22 13:42 01/30/22 13:42 Labs: Laboratory Results - last 24 hr 01/30/22 01/30/22 01/30/22 13:42 13:42 19:31 MCV 88.4 MCH 28.8 MCHC 32.6 RDW 13.8 Plt Count 286 MPV 10.9 Immature Gran % (Auto) 0.3 Neut % (Auto) 62.3 Lymph % (Auto) 30.8 [place] % (Auto) 5.2 Eos % (Auto) 1.0 Baso % (Auto) 0.4 Lymph # (Auto) 3.0 [place] # (Auto) 0.5 Eos # (Auto) 0.1 Baso # (Auto) 0.0 Abs Immat Gran (auto) 0.03 Absolute Neuts (auto) 6.1 Absolute Nucleated RBC 0.000 Nucleated RBC % (auto) 0.0 Anion Gap 12 Estim Creat Clear Calc 57.9 Estimated GFR > 60 POC Glucose Random Glucose 141 H Calcium 9.3 COVID-19 ([facility]) Negative COVID-19 Clin Com See Note 01/30/22 20:30 MCV MCH MCHC RDW Plt Count MPV Immature Gran % (Auto) Neut % (Auto) Lymph % (Auto) [place] % (Auto) Eos % (Auto) Baso % (Auto) Lymph # (Auto) [place] # (Auto) Eos # (Auto) Baso # (Auto) Abs Immat Gran (auto) Absolute Neuts (auto) Absolute Nucleated RBC Nucleated RBC % (auto) Anion Gap Estim Creat Clear Calc Estimated GFR POC Glucose 97 Random Glucose Calcium COVID-19 ([facility]) COVID-19 Clin Com Assessment and Plan (1) Chest pain: Status: Acute Plan 61-year-old female with a past medical history of hypertension, hyperlipidemia, diabetes, CAD-recent stents in December of 2021; history of breast cancer, peripheral arterial disease, reactive airway disease, rheumatoid arthritis, osteoporosis, fibromyalgia, anxiety, depression presented to the hospital today with a chief complaint of chest Chest pain. Chest pain: Reproducible Worsens with deep inspiration. Patient was given Brilinta, nitro patch was placed. Chest pain improved after she received Dilaudid. Troponins x3 negative. Telemetry Sublingual nitroglycerin p.r.n. Dilaudid pP.r.n. Telemetry Cardiology consult history of CAD with recent stent placement: Continue home aspirin Brilinta, statin, beta-mary History of hyperlipidemia: Continue home metoprolol, losartan History of diabetes: Will give the patient on regular at 30 units and insulin sliding scale. history of asthma: Stable DVT prophylaxis: Lovenox Code status: Full code Quality Stroke Does the patient have a stroke diagnosis?: No VTE Prior VTE?: No VTE Risk Level:: Medical - moderate - high VTE Device Contraindication: Treatment Not Indicated VTE Drug Contraindication: N/A - Med Ordered
[2022-01-31 00:23] VITALS: BP 144/82; PULSE 75; RESP 14; O2SAT 97
[2022-01-31 00:32] LABS: Appearance Urine CLEAR; Color Urine YELLOW; Glucose Urine UA NEG (NEG); Leukocyte Esterase Urine 3+ (NEG); Nitrite Urine NEG (NEG); PH 6.5 (5.0-8.0); UACC Culture Trigger YES; Urine Blood TRACE (NEG); Urine Ketones NEG (NEG); Urine Protein NEG (NEG-TRACE)
--- NOTE | 2022-01-31 00:38 | PC.NURSE ---
pt a&o, no distress during my shift. medicated per jan. provider into assess pt. Labs, Ekg completed. pt on bedside monitor. Reported off to nurse Haley at 12:05am
[2022-01-31 00:39] LABS: Bacteria Urine 1+ /LPF; Mucus Urine 2+ /LPF; RBC Urine 0-2 /HPF (0); Squamous Epithelial Cell Urine 2+ /LPF; UACC CULT YES
--- NOTE | 2022-01-31 00:50 | PC.NURSE ---
flexertext sent to provider to make him aware of patient's request for pain medication for 9/10 frontal headache.
[2022-01-31 01:47] VITALS: BMI 26.3
[2022-01-31] MEDS: 0.9 % Sodium Chloride Flush 3 ML SYRINGE IVFLUSH ×2 (01:51→07:21)
[2022-01-31 01:56] LABS: Glucose, Whole Blood 122 mg/dL (60-115)
[2022-01-31] MEDS: HYDROmorphone HCl 0.5 MG/0.5 ML SYRINGE IVPUSH (03:03)
[2022-01-31 03:26] VITALS: BP 113/67; PULSE 72; RESP 18; TEMP 35.8; O2SAT 96
[2022-01-31 06:39] LABS: MANUAL DIFF FLAG NO
[2022-01-31 06:43] LABS: Basophils Percent Auto 0.4 % (0-2); Eosinophils Absolute Auto 0.1 X10*3/uL (0.0-0.4); Eosinophils Percent Auto 1.9 % (0-4); Hematocrit 39.3 % (37.0-47.0); Hemoglobin 12.8 g/dl (12.0-16.0); Imm Gran Abs Auto 0.02 X10*3/uL (0.00-0.03); Imm Gran Pct Auto 0.3 % (0.0-0.4); Lymphocytes Absolute Auto 3.5 X10*3/uL (1.2-4.9); Lymphocytes Percent Auto 45.8 % (20-40); Mean Corpuscular HGB Conc 32.6 g/dl (31.0-35.0); Mean Corpuscular Hemoglobin 28.8 pg (27.0-33.0); Mean Corpuscular Volume 88.3 fL (80.0-98.0); Mean Platelet Volume 10.9 fL (9.4-12.3); Monocytes Absolute Auto 0.5 X10*3/uL (0.1-1.2); Monocytes Percent Auto 6.5 % (2-11); Neutrophils Absolute Auto 3.4 x10*3/uL (2.0-8.3); Neutrophils Percent Auto 45.1 % (45-73); Platelet Count 273 X10*3/uL (160-400); Red Blood Count 4.45 X10*6/uL (4.20-5.50); Red Cell Distribution Width 13.6 % (11.0-16.0); White Blood Count 7.6 X10*3/uL (4.8-10.8)
[2022-01-31 06:58] LABS: Anion Gap 10 (12-20); Blood Urea Nitrogen 9 mg/dL (9-16); Calcium 9.2 mg/dL (8.4-10.2); Carbon Dioxide 27 mmol/L (22-29); Chloride 107 mmol/L (96-108); Creatinine Clr Calc Pharmacy 58.1; Estimated Glomerular Filt Rate > 60; Glucose Random 127 mg/dL (60-115); Potassium 4.3 mmol/L (3.3-5.1); Sodium 140 mmol/L (135-145)
[2022-01-31 07:09] VITALS: BP 138/68; PULSE 74; RESP 20; TEMP 35.7; O2SAT 97
[2022-01-31 07:10] LABS: Glucose, Whole Blood 119 mg/dL (60-115)
[2022-01-31] MEDS: Letrozole 2.5 MG TABLET PO (07:22)
[2022-01-31] MEDS: Atorvastatin Calcium 80 MG TABLET PO (07:22)
[2022-01-31] MEDS: Acetaminophen 325 MG TABLET 650 MG PO (07:22)
[2022-01-31] MEDS: Omeprazole 20 MG CAPSULE.DR PO (07:22)
[2022-01-31] MEDS: lisinopriL 5 MG TABLET PO (07:23)
[2022-01-31] MEDS: Losartan Potassium 25 MG TABLET PO (07:23)
[2022-01-31] MEDS: Metoprolol Tartrate 12.5 MG HALFTAB PO (07:23)
[2022-01-31] MEDS: Ticagrelor 90 MG TABLET PO (07:23)
[2022-01-31] MEDS: Aspirin Enteric Coated 81 MG TABLET.DR PO (07:23)
--- NOTE | 2022-01-31 08:46 | CA_ITS ---
Transthoracic Echocardiogram Limited Patient (Last, First, Middle): Sosa Joiner D Gender: Female Date of : 1960 Age: 61 Procedure Date: 01/31/2022 Procedure Type: Transthoracic Echocardiogram Limited [place] [facility] [place]: 147.32 cm Weight: 57.15 kg BSA: 1.50 m2 Heart Rate: bpm BP: 138 / 68 mmHg Hand Bender: Referring MD: Delon No MD Symptoms: chest pain, sob, recent [place] Study Quality: Fair ECG Rhythm: Sinus Conclusions: - The left ventricular systolic function is normal. The calculated ejection fraction is 65% by biplane method. - There is no evidence of regional wall motion abnormalities. Findings Left Ventricle Normal left ventricular cavity size. There is normal left ventricular wall thickness. The left ventricular systolic function is normal. The calculated ejection fraction is 65% by biplane method. There is no evidence of regional wall motion abnormalities. Pericardium/Pleural There is no evidence of pericardial effusion. Prior Study Comparison No significant change compared to prior study dated: 12/26/2021. Measurements 2D Linear Measurements IVSd: 0.97 0.6-0.9/0.6-1.0 cm LVIDd: 4.01 3.9-5.3/4.2-5.9 cm LVIDd Index: 2.67 2.4-3.2/2.2-3.1 cm/m2 LVIDs: 2.57 2.0-3.6 cm LVPWd: 0.99 0.7-1.1 cm LV Mass: 154.12 67-162/88-224 g LV Mass Index: 102.74 43-95/49-115 g/m2 2D Systolic Function EF 4C: 57.80 >55% EF 2C: 70.20 >55% EF BiP: 65.40 >55% Mitral Valve MV Pk E: 0.77 MV PK A: 0.82 MV Decel Time: 205.00 E/A: 0.90 E'Lateral: 6.20 E'Medial: 5.22 E/E' Med: 14.80 E/E' Lat: 12.40 PHT: 60.00 MVA PHT: 3.67 Decel [place]: 3.76 Diastolic Function MV Pk E: 0.77 MV Pk A: 0.82 E/A: 0.90 E'Medial: 5.22 E/E' Med: 14.80 E' Laterial: 6.20 E/E' Lat: 12.40 Updated in Other Vendor System with Status of Final Delon No MD electronically signed on 01/31/2022 12:11:06 PM with status of Final
--- NOTE | 2022-01-31 08:56 | MHC.CM.PN ---
CM met with Patient at bedside and addressed MULLIGAN with her, providing her with the original and placing a copy on the chart. Patient is active with [facility] and home/resume said services is the goal for dc. CM has initiated and will follow for dc planning. Patient has received Covid Moderna vax X2 and the PCP is Dr. Adela Gonsalez.
[2022-01-31] MEDS: Butalb/Acetamin/Caff 50/325/40 TABLET 1 TAB PO (10:26)
[2022-01-31] MEDS: Insulin Glargine,Hum.rec.anlog 100 UNIT/ML 10 ML VIAL 32 UNIT SUBCUT (10:26)
--- NOTE | 2022-01-31 10:46 | P.CONCA_ITS ---
History of Present Illness History of Present Illness Date of Service: 01/31/22 Chief complaint: chest pain Narrative: This is a cardiology consultation regarding chest pain. Patient recently underwent cardiac catheterization for NSTEMI. At that time, she was found to have severe circumflex stenosis that was thought to be the culprit. She underwent PCI to the same. She had mild disease in the LAD and RCA. Left main was normal. She states that she again noticed some chest discomfort yesterday which led to the hospitalization. Somewhat vague description. In the H and P, it is mentioned that she had chest pain that worsened with deep inspiration. At this time, she states that chest pain is sometimes worse with coughing. Overall, does not clearly sound to be anginal. She also has chronic shortness of breath from COPD. At this time, she is also complaining of headache. Review of Systems Review of Systems: Yes all other systems are reviewed and are negative Cardiovascular: Cardiovascular: Reports as per HPI, Reports no additional car diovascular complaints, Denies acrocyanosis, Denies cool extremities, Reports chest pain, Denies diaphoresis, Denies syncope, Denies claudication, Denies leg edema, Denies lightheadedness, Denies palpitations and Reports dyspnea Respiratory: Respiratory: Reports dyspnea Neurologic: Denies syncope Endocrine: Endocrine: Denies palpitations [facility] Past Medical History Medical History Allergic rhinitis Allergic rhinitis Allergic rhinitis Anxiety Asthma Asthma Bipolar 1 disorder, depressed Bloody diarrhea Breast cancer Breast pain, right Bronchial asthma Colitis Colitis COPD (chronic obstructive pulmonary disease) Cough Depression Diabetes mellitus Diabetes type 2, uncontrolled Dyslipidemia Fibromyalgia Hospital discharge follow-up Hyperlipidemia LDL goal <100 Hyperparathyroidism Hypertension Hypothyroid Hypothyroid IDDM (insulin dependent diabetes mellitus) IDDM (insulin dependent diabetes mellitus) Infiltrating ductal carcinoma of left breast, stage 2 Insomnia Irritable bowel Osteoporosis PAD (peripheral artery disease) Rash Reactive airways dysfunction syndrome Restrictive airway disease Rheumatoid arthritis Seropositive rheumatoid arthritis T2DM (type 2 diabetes mellitus) Thyroid nodule Vitamin D deficiency Family History Family History Mother Diabetes HTN (hypertension) Uterus cancer Malignant tumor of head Breast cancer Father Diabetes HTN (hypertension) CVD (cardiovascular disease) Heart problem Maternal Aunt Breast cancer Brother Myocardial infarction S/P CABG x 4 Family/Other FH: mental illness Family/Other Lung cancer Other Mental health disorder Surgical History Surgical History H/O cardiac catheterization H/O: hysterectomy History of bunionectomy of both great toes History of colonoscopy History of esophagogastroduodenoscopy (EGD) History of lumpectomy of left breast History of pubovaginal sling History of tubal ligation Social History Social History Household Members: Family Household Members Other:: sister Housing: Apartment Do you presently have visiting nurse or other home services: Yes (sister=biosecurity officer) Alcohol intake: never Patient Tobacco Use Status: Former Tobacco user Quit Date: 08/2021 Tobacco use type: Cigarette Cigarettes Per Day: 2 Years Smoked: 45 e-Cigarette/Vaping Use: Former Use Patient Interested in Nicotine Replacement: No Patient Given Instructions on How to Stop Smoking: Yes Date Education Initiated: 01/31/22 Second Hand Smoke Exposure: No Use of substances other than those prescribed or required for medical reasons: No Advance Directives: Yes Advance Directives on File: Yes Advance Directives Date on File: 12/22/21 Patient : No service: No Current occupational status: disabled Current occupation: rt handed Cognitive needs: No Hearing needs: No Vision needs: No Meds Allergies Allergy/AdvReac Type Severity Reaction Status Date / Time dog dander [DOGS] Allergy Intermediate Respiratory Verified 01/30/22 09:36 distress ibuprofen [Ibuprofen] Allergy Intermediate STOMACH Verified 01/30/22 09:36 UPSET, abdominal pain, nausea and vomiting shellfish derived Allergy Intermediate Hives Verified 01/30/22 09:36 etanercept [From Enbrel] AdvReac Intermediate Facial Verified 01/30/22 09:36 Swelling metformin AdvReac Intermediate diarrhea Verified 01/30/22 09:36 metronidazole [From FLAGYL] AdvReac Intermediate DIARRHEA Verified 01/30/22 09:36 prednisone AdvReac Intermediate hallucinations, Verified 01/30/22 09:36 higher than 20 Active Medications: Current Medications Acetaminophen (Acetaminophen 325 Mg Tablet) 650 mg PO Q6H PRN PRN Reason: Headache Last Admin: 01/31/22 07:22 Dose: 650 mg Documented by: Albuterol Sulfate (Albuterol Sulfate 90 Mcg 8 Gm Inhaler) 1 puff INHALE QID PRN PRN Reason: shortness of breath or wheezing Aspirin (Aspirin Enteric Coated 81 Mg Tablet.) 81 mg PO DAILY [facility] Last Admin: 01/31/22 07:23 Dose: 81 mg Documented by: Atorvastatin Calcium (Atorvastatin Calcium 80 Mg Tablet) 80 mg PO DAILY [facility] Last Admin: 01/31/22 07:22 Dose: 80 mg Documented by: Dextrose (Dextrose 50 % 25 Gm/50 Ml Vial) 25 gm IVPUSH Q15M PRN; Protocol PRN Reason: per Hypoglycemia Standing Ord. Glucose (Glucose Gel 15 Gm Gel..Gram.) 15 gm PO Q15M PRN; Protocol PRN Reason: per Hypoglycemia Standing Ord. Hydromorphone HCl (Hydromorphone Hcl 0.5 Mg/0.5 Ml Syringe) 0.5 mg IVPUSH Q4H PRN; Protocol PRN Reason: chest pain Last Admin: 01/31/22 03:03 Dose: 0.5 mg Documented by: Insulin Glargine (Insulin Glargine,Hum.Rec.Anlog 100 Unit/Ml 10 Ml Vial) 32 unit SUBCUT DAILY [facility] Last Admin: 01/31/22 10:26 Dose: 32 unit Documented by: Insulin Human Lispro (Insulin Lispro 100 Unit/Ml 3 Ml Vial) 0 unit SUBCUT QIDACHS [facility]; Protocol Last Admin: 01/31/22 07:13 Dose: Not Given Documented by: Lamotrigine (Lamotrigine 25 Mg Tablet) 25 mg PO BEDTIME [facility] Letrozole (Letrozole 2.5 Mg Tablet) 2.5 mg PO DAILY [facility] Last Admin: 01/31/22 07:22 Dose: 2.5 mg Documented by: Lisinopril (Lisinopril 5 Mg Tablet) 5 mg PO DAILY [facility]; Protocol Last Admin: 01/31/22 07:23 Dose: 5 mg Documented by: Losartan Potassium (Losartan Potassium 25 Mg Tablet) 25 mg PO DAILY [facility]; Protocol Last Admin: 01/31/22 07:23 Dose: 25 mg Documented by: Melatonin (Melatonin 3 Mg Tablet) 6 mg PO BEDTIME PRN PRN Reason: Insomnia Metoprolol Tartrate (Metoprolol Tartrate 12.5 Mg Halftab) 12.5 mg PO BID [facility]; Protocol Last Admin: 01/31/22 07:23 Dose: 12.5 mg Documented by: Nitroglycerin (Nitroglycerin 0.4 Mg Tab.Subl) 0.4 mg SUBLINGUAL Q5MX3 PRN PRN Reason: Chest Pain Omeprazole (Omeprazole 20 Mg Capsule.Dr) 20 mg PO BIDAC [facility] Last Admin: 01/31/22 07:22 Dose: 20 mg Documented by: Pharmacy Consult (Consult Rx Perform Med Rec) 1 each MISCELLANE ONCE PRN PRN Reason: Consult order Pharmacy Consult (Consult Rx Perform Med Rec) 1 each MISCELLANE ONCE PRN PRN Reason: Consult order Pregabalin (Pregabalin 100 Mg Capsule) 200 mg PO BEDTIME [facility] Senna (Sennosides 8.6 Mg Tablet) 17.2 mg PO BEDTIME PRN PRN Reason: Constipation Sodium Chloride (0.9 % Sodium Chloride Flush 3 Ml Syringe) 3 ml IVFLUSH QSHIFT [facility] Last Admin: 01/31/22 07:21 Dose: 3 ml Documented by: Ticagrelor (Ticagrelor 90 Mg Tablet) 90 mg PO BID [facility] Last Admin: 01/31/22 07:23 Dose: 90 mg Documented by: Tizanidine HCl (Tizanidine Hcl 4 Mg Tablet) 2 mg PO BEDTIME PRN PRN Reason: muscle spasm Trazodone HCl (Trazodone Hcl 100 Mg Tablet) 100 mg PO BEDTIME [facility] Home Medications Medication Instructions Recorded Confirmed Last Taken Type blood sugar diagnostic (FreeStyle 12/26/21 01/23/22 Unknown History Lite Strips) dulaglutide 1.5 mg/0.5 mL 0.5 ml SUBCUT WE 12/26/21 01/30/22 01/24/22 History subcutaneous pen injector (Trulicity) insulin aspart U-100 100 unit/mL See Protocol SUBCUT TIDAC 12/26/21 01/30/22 01/29/22 History (3 mL) subcutaneous pen (Novolog Flexpen U-100 Insulin aspart) pregabalin 200 mg capsule 1 cap PO BEDTIME 12/26/21 01/30/22 01/29/22 History tizanidine 2 mg tablet 1 tab PO BEDTIME PRN 12/26/21 01/30/22 Unknown History nitroglycerin 0.4 mg sublingual 0.4 mg SUBLINGUAL Q5M PRN 01/03/22 01/30/22 Unknown History tablet insulin degludec 100 unit/mL (3 46 unit SUBCUT DAILY ml 01/23/22 01/30/22 01/29/22 History mL) subcutaneous pen (Tresiba FlexTouch U-100 insulin) abatacept 125 mg/mL subcutaneous 125 mg SUBCUT WE 01/30/22 01/30/22 01/24/22 History auto-injector (Orencia ClickJect) lamotrigine 25 mg tablet 25 mg PO BEDTIME 01/30/22 01/30/22 01/29/22 History lisinopril 5 mg tablet 1 tab PO DAILY 01/30/22 01/30/22 01/29/22 History Physical Exam Vital Signs: Vital Signs: Last Vital Signs Temp 96.2 F L 01/31/22 07:09 Pulse 74 01/31/22 07:09 Resp 20 01/31/22 07:09 BP 138/68 01/31/22 07:09 Pulse Ox 97 01/31/22 07:09 BMI result Body Mass Index 26.3 Const: General: comfortable HENMT: Other: Unremarkable Neck: Neck: Yes normal visual inspection Chest: Chest palpation & inspection: normal inspection of the chest Resp: Other: few basal crackles Cardio: Palpation: normal PMI Heart sounds: S1 normal heart sound present, S2 normal heart sound present, no gallops, no murmurs and no rubs GI: Palpation (GI): Soft to palpation Back/Spine/Pelvis: Other: unremarkable Skin: Lesions: other Neuro: General: other Extrem: General: Yes other Psych: Mental Status: other Objective Labs and Meds Result diagrams: 01/31/22 06:35 01/31/22 06:35 Lab results: Laboratory Results - last 24 hr 01/30/22 01/30/22 01/30/22 13:42 13:42 13:42 WBC 9.8 RBC 4.48 Hgb 12.9 Hct 39.6 MCV 88.4 MCH 28.8 MCHC 32.6 RDW 13.8 Plt Count 286 MPV 10.9 Immature Gran % (Auto) 0.3 Neut % (Auto) 62.3 Lymph % (Auto) 30.8 Wood % (Auto) 5.2 Eos % (Auto) 1.0 Baso % (Auto) 0.4 Lymph # (Auto) 3.0 Wood # (Auto) 0.5 Eos # (Auto) 0.1 Baso # (Auto) 0.0 Abs Immat Gran (auto) 0.03 Absolute Neuts (auto) 6.1 Absolute Nucleated RBC 0.000 Nucleated RBC % (auto) 0.0 Sodium 141 Potassium 4.2 Chloride 109 H Carbon Dioxide 24 Anion Gap 12 BUN 8 L Creatinine 0.78 Estim Creat Clear Calc 57.9 Estimated GFR > 60 POC Glucose Random Glucose 141 H Calcium 9.3 Troponin I High Sens 5.2 D Urine Color Urine Appearance Urine pH Ur Specific [place] Urine Protein Urine Glucose (UA) Urine Ketones Urine Blood Urine Nitrite Ur Leukocyte Esterase Urine RBC Urine WBC Ur Squamous Epith Cells Urine Bacteria Urine Mucus COVID-19 ([facility]) COVID-19 Clin Com 01/30/22 01/30/22 01/30/22 19:31 19:31 20:19 WBC RBC Hgb Hct MCV MCH MCHC RDW Plt Count MPV Immature Gran % (Auto) Neut % (Auto) Lymph % (Auto) Wood % (Auto) Eos % (Auto) Baso % (Auto) Lymph # (Auto) [place] # (Auto) Eos # (Auto) Baso # (Auto) Abs Immat Gran (auto) Absolute Neuts (auto) Absolute Nucleated RBC Nucleated RBC % (auto) Sodium Potassium Chloride Carbon Dioxide Anion Gap BUN Creatinine Estim Creat Clear Calc Estimated GFR POC Glucose Random Glucose Calcium Troponin I High Sens 7.9 D Urine Color YELLOW Urine Appearance CLEAR Urine pH 6.5 Ur Specific [place] 1.020 Urine Protein NEG Urine Glucose (UA) NEG Urine Ketones NEG Urine Blood TRACE Urine Nitrite NEG Ur Leukocyte Esterase 3+ H Urine RBC 0-2 Urine WBC 15-29 H Ur Squamous Epith Cells 2+ Urine Bacteria 1+ Urine Mucus 2+ COVID-19 ([facility]) Negative COVID-19 [employer] Com See Note 01/30/22 01/30/22 01/31/22 20:30 21:27 01:52 WBC RBC Hgb Hct MCV MCH MCHC RDW Plt Count MPV Immature Gran % (Auto) Neut % (Auto) Lymph % (Auto) Wood % (Auto) Eos % (Auto) Baso % (Auto) Lymph # (Auto) [place] # (Auto) Eos # (Auto) Baso # (Auto) Abs Immat Gran (auto) Absolute Neuts (auto) Absolute Nucleated RBC Nucleated RBC % (auto) Sodium Potassium Chloride Carbon Dioxide Anion Gap BUN Creatinine Estim Creat Clear Calc Estimated GFR POC Glucose 97 122 H Random Glucose Calcium Troponin I High Sens 8.0 Urine Color Urine Appearance Urine pH Ur Specific [place] Urine Protein Urine Glucose (UA) Urine Ketones Urine Blood Urine Nitrite Ur Leukocyte Esterase Urine RBC Urine WBC Ur Squamous Epith Cells Urine Bacteria Urine Mucus COVID-19 ([facility]) COVID-19 Clin Com 01/31/22 01/31/22 01/31/22 06:35 06:35 07:05 WBC 7.6 RBC 4.45 Hgb 12.8 Hct 39.3 MCV 88.3 MCH 28.8 MCHC 32.6 RDW 13.6 Plt Count 273 MPV 10.9 Immature Gran % (Auto) 0.3 Neut % (Auto) 45.1 Lymph % (Auto) 45.8 H [place] % (Auto) 6.5 Eos % (Auto) 1.9 Baso % (Auto) 0.4 Lymph # (Auto) 3.5 Wood # (Auto) 0.5 Eos # (Auto) 0.1 Baso # (Auto) 0.0 Abs Immat Gran (auto) 0.02 Absolute Neuts (auto) 3.4 Absolute Nucleated RBC 0.000 Nucleated RBC % (auto) 0.0 Sodium 140 Potassium 4.3 Chloride 107 Carbon Dioxide 27 Anion Gap 10 L BUN 9 Creatinine 0.78 Estim Creat Clear Calc 58.1 Estimated GFR > 60 POC Glucose 119 H Random Glucose 127 H Calcium 9.2 Troponin I High Sens Urine Color Urine Appearance Urine pH Ur Specific [place] Urine Protein Urine Glucose (UA) Urine Ketones Urine Blood Urine Nitrite Ur Leukocyte Esterase Urine RBC Urine WBC Ur Squamous Epith Cells Urine Bacteria Urine Mucus COVID-19 ([facility]) COVID-19 Clin Com ECG Interpretation: EKG without any clear ischemic findings. Sinus rhythm at 87/Min. Assessment and Plan (1) Precordial chest pain: Status: Acute (2) Atherosclerotic cardiovascular disease: Status: Acute Plan Cardiac catheterization data reviewed from last month. She underwent drug- eluting stent to proximal circumflex as well as mid OM2. She only had mild disease in the LAD and RCA and left main was normal. At the current time, EKGs unremarkable. Chest pain is rather pleuritic. Troponins are negative x3. Overall, chest pain does not sound anginal. Could be some pericarditis component. Could also be pleuritic related to her COPD. We can get an echocardiogram to assess for EF and wall motion any other findings like effusion. If this is unremarkable, could be followed up as an outpatient. Procedures Date of Service Date of Service: 01/31/22
[2022-01-31 10:52] VITALS: BP 109/56; PULSE 61; RESP 20; TEMP 36.4; O2SAT 98
[2022-01-31 10:54] LABS: Glucose, Whole Blood 187 mg/dL (60-115)
[2022-01-31] MEDS: Insulin Lispro 100 UNIT/ML 3 ML VIAL SUBCUT (12:01)
--- NOTE | 2022-01-31 14:03 | MHC.CM.PN ---
Patient has been medically cleared for dc to home today, self care.
--- NOTE | 2022-01-31 14:09 | P.DS_ITS ---
DS: Providers Provider Date of Service: 01/31/22 Date of admission: 01/30/22 19:10 Primary care physician: Adela Wasserman MD Consults: 01/30/22 19:17 Consult to Cardiology Routine Consulting Provider: Delon No Reason for consultation: chest pain DS: Diagnosis Discharge Diagnosis (1) Precordial chest pain: Status: Acute (2) Atherosclerotic cardiovascular disease: Status: Acute DS: Summary Hospital Course Hospital Course: Chief Complaint: chest pain 61-year-old female with a past medical history of hypertension, hyperlipidemia, diabetes, CAD-recent stents in December of 2021; history of breast cancer, peripheral arterial disease, reactive airway disease, rheumatoid arthritis, osteoporosis, fibromyalgia, anxiety, depression presented to the hospital today with a chief complaint of chest ? Chest pain. Patient reported that she recently had stent placed about a month ago - received 2 stents; presents today to the hospital with a chief complaint of chest pain.? Mentions that today she developed chest pain located the center of the chest, tight in nature also had pain in her left scapula; denied any nausea vomiting or diarrhea.? But had associated diaphoresis and lightheadedness.? Denies any shortness of breath or dyspnea on exertion.? Mentions her chest pain worsens with deep inspiration. Denies any fever chills cough.? Denies any GI symptoms.? Review of all other systems is negative except mentioned above Hospital course 61-year-old female with past medical history of hypertension hyperlipidemia, diabetes recently underwent coronary is stent placement presented to [facility] due to complaint of chest pain worse with deep breathing associated with diaphoresis light headedness, workup in the emergency room was unremarkable with normal 3 sets of troponin, EKG with no ischemia but patient was noted to have shortness of breath with ambulation therefore underwent limited echocardiogram that showed well preserved EF and no wall motion abnormality, later in the day mcginnis symptoms of shortness of breath chest pain resolved patient was ambulating in hallway without difficulty therefore being discharged home on all her baseline medication and has been recommended to follow-up with Dr. Salmon in 1-2 weeks. Time Spent with Patient Time attestation: Total time spent providing and/or coordinating discharge services: Discharge coordination time: Greater than 30 minutes Quality: Stroke Does the patient have a stroke diagnosis?: No Physical Exam Vital Signs: Vital Signs: Last Vital Signs Temp 97.5 F 01/31/22 10:52 Pulse 61 01/31/22 10:52 Resp 20 01/31/22 10:52 BP 109/56 L 01/31/22 10:52 Pulse Ox 98 01/31/22 10:52 BMI result Body Mass Index 26.3 Const: Other: General awake alert x3no acute distress. Neck supple no JVD. CVS regular rate rhythm, Respiratory lungs clear to auscultation, no respiratory distress, no wheeze, no rhonchi. Gastrointestinal abdomen soft, nontender, bowel sounds audible Extremities no edema. Neuro nonfocal speech clear. Skin no rash Psych appropriate affect DS: Data Data Completed and Pending Labs on day of discharge: Laboratory Results - last 24 hr 01/30/22 01/30/22 01/30/22 13:42 13:42 19:31 WBC RBC Hgb Hct MCV MCH MCHC RDW Plt Count MPV Immature Gran % (Auto) Neut % (Auto) Lymph % (Auto) [place] % (Auto) Eos % (Auto) Baso % (Auto) Lymph # (Auto) [place] # (Auto) Eos # (Auto) Baso # (Auto) Abs Immat Gran (auto) Absolute Neuts (auto) Absolute Nucleated RBC Nucleated RBC % (auto) Sodium 141 Potassium 4.2 Chloride 109 H Carbon Dioxide 24 Anion Gap 12 BUN 8 L Creatinine 0.78 Estim Creat Clear Calc 57.9 Estimated GFR > 60 POC Glucose Random Glucose 141 H Calcium 9.3 Troponin I High Sens 5.2 D 7.9 D Urine Color Urine Appearance Urine pH Ur Specific [place] Urine Protein Urine Glucose (UA) Urine Ketones Urine Blood Urine Nitrite Ur Leukocyte Esterase Urine RBC Urine WBC Ur Squamous Epith Cells Urine Bacteria Urine Mucus COVID-19 ([facility]) COVID-19 Clin Com 01/30/22 01/30/22 01/30/22 19:31 20:19 20:30 WBC RBC Hgb Hct MCV MCH MCHC RDW Plt Count MPV Immature Gran % (Auto) Neut % (Auto) Lymph % (Auto) [place] % (Auto) Eos % (Auto) Baso % (Auto) Lymph # (Auto) [place] # (Auto) Eos # (Auto) Baso # (Auto) Abs Immat Gran (auto) Absolute Neuts (auto) Absolute Nucleated RBC Nucleated RBC % (auto) Sodium Potassium Chloride Carbon Dioxide Anion Gap BUN Creatinine Estim Creat Clear Calc Estimated GFR POC Glucose 97 Random Glucose Calcium Troponin I High Sens Urine Color YELLOW Urine Appearance CLEAR Urine pH 6.5 Ur Specific [place] 1.020 Urine Protein NEG Urine Glucose (UA) NEG Urine Ketones NEG Urine Blood TRACE Urine Nitrite NEG Ur Leukocyte Esterase 3+ H Urine RBC 0-2 Urine WBC 15-29 H Ur Squamous Epith Cells 2+ Urine Bacteria 1+ Urine Mucus 2+ COVID-19 ([facility]) Negative COVID-19 Clin Com See Note 01/30/22 01/31/22 01/31/22 21:27 01:52 06:35 WBC 7.6 RBC 4.45 Hgb 12.8 Hct 39.3 MCV 88.3 MCH 28.8 MCHC 32.6 RDW 13.6 Plt Count 273 MPV 10.9 Immature Gran % (Auto) 0.3 Neut % (Auto) 45.1 Lymph % (Auto) 45.8 H [place] % (Auto) 6.5 Eos % (Auto) 1.9 Baso % (Auto) 0.4 Lymph # (Auto) 3.5 [place] # (Auto) 0.5 Eos # (Auto) 0.1 Baso # (Auto) 0.0 Abs Immat Gran (auto) 0.02 Absolute Neuts (auto) 3.4 Absolute Nucleated RBC 0.000 Nucleated RBC % (auto) 0.0 Sodium Potassium Chloride Carbon Dioxide Anion Gap BUN Creatinine Estim Creat Clear Calc Estimated GFR POC Glucose 122 H Random Glucose Calcium Troponin I High Sens 8.0 Urine Color Urine Appearance Urine pH Ur Specific [place] Urine Protein Urine Glucose (UA) Urine Ketones Urine Blood Urine Nitrite Ur Leukocyte Esterase Urine RBC Urine WBC Ur Squamous Epith Cells Urine Bacteria Urine Mucus COVID-19 ([facility]) COVID-19 Clin Com 01/31/22 01/31/22 01/31/22 06:35 07:05 10:50 WBC RBC Hgb Hct MCV MCH MCHC RDW Plt Count MPV Immature Gran % (Auto) Neut % (Auto) Lymph % (Auto) [place] % (Auto) Eos % (Auto) Baso % (Auto) Lymph # (Auto) [place] # (Auto) Eos # (Auto) Baso # (Auto) Abs Immat Gran (auto) Absolute Neuts (auto) Absolute Nucleated RBC Nucleated RBC % (auto) Sodium 140 Potassium 4.3 Chloride 107 Carbon Dioxide 27 Anion Gap 10 L BUN 9 Creatinine 0.78 Estim Creat Clear Calc 58.1 Estimated GFR > 60 POC Glucose 119 H 187 H Random Glucose 127 H Calcium 9.2 Troponin I High Sens Urine Color Urine Appearance Urine pH Ur Specific [place] Urine Protein Urine Glucose (UA) Urine Ketones Urine Blood Urine Nitrite Ur Leukocyte Esterase Urine RBC Urine WBC Ur Squamous Epith Cells Urine Bacteria Urine Mucus COVID-19 ([facility]) COVID-19 Clin Com Discharge Plan Discharge Patient Disposition: Home, Self-Care Discharge Diagnosis: chest pain Referrals: Adela Gipson MD [Primary Care Provider] - 1 Week Discharge Medications: Continued trazodone 100 mg tablet 100 mg PO BEDTIME 90 Days Qty: 90 0RF losartan 25 mg tablet 25 mg PO DAILY 90 Days Qty: 90 2RF pantoprazole 40 mg tablet,delayed release (DR/EC) 40 mg PO BID Qty: 180 0RF aspirin 81 mg tablet,delayed release (DR/EC) 81 mg PO DAILY 90 Days Qty: 90 1RF atorvastatin 80 mg tablet 80 mg PO DAILY 90 Days Qty: 90 1RF metoprolol tartrate 25 mg tablet 12.5 mg PO BID 90 Days Qty: 90 1RF Brilinta 90 mg tablet 90 mg PO BID 90 Days Qty: 180 1RF letrozole 2.5 mg Tablet 2.5 mg PO DAILY Qty: 90 4RF tizanidine 2 mg tablet 1 tab PO BEDTIME PRN (Reason: muscle spasm) 0RF (DME) FreeStyle Lite Strips Strip MISCELLANEOUS DAILY 0RF pregabalin 200 mg capsule 1 cap PO BEDTIME 0RF Trulicity 1.5 mg/0.5 mL pen injector 0.5 ml subcut WE 0RF insulin aspart U-100 [Novolog Flexpen U-100 Insulin] 100 unit/mL (3 mL) insulin pen See Protocol sliding scale dose subcut TIDAC 0RF Protocol: Insulin Correction Scale Less than or equal to 110 ---- Give (units): 0 111 to 150 Give (units): 0 151 to 200 Give (units): 2 201 to 250 Give (units): 4 251 to 300 Give (units): 6 301 to 350 Give (units): 8 Greater than 350 Give (units): 10 Call MD if Blood Glucose > : 350 lisinopril 5 mg tablet 1 tab PO DAILY 0RF lamotrigine 25 mg tablet 25 mg PO BEDTIME 0RF Orencia ClickJect 125 mg/mL auto-injector 125 mg subcut WE 0RF (DME) pen needle, diabetic [Comfort EZ Pen [place]] 31 gauge x 5/16 needle See Rx Instructions .ROUTE .MEDSUPPLY Qty: 200 11RF Rx Instructions: Use 1 pen needle 6 times a day nitroglycerin 0.4 mg tablet, sublingual 0.4 mg sublingual Q5M PRN (Reason: Chest Pain) 0RF Tresiba FlexTouch U-100 100 unit/mL (3 mL) insulin pen 46 unit subcut DAILY 0RF acetaminophen-codeine 300-30 mg tablet 1 tab PO Q8H PRN (Reason: pain) 7 Days Qty: 21 0RF albuterol sulfate 90 mcg/actuation HFA aerosol inhaler 1 inh inhalation QID PRN (Reason: shortness of breath or wheezing) Qty: 8.5 0RF Discontinued amoxicillin-pot clavulanate [Augmentin] 500-125 mg tablet 1 tab PO BID Qty: 20 0RF Discharge Orders: Discharge Order (Routine); Ordered 01/31/22 Ordered By: Rizwan Marti Diet: diabetic diet and low fat, low cholesterol Activity on Discharge: As tolerated Stand Alone Forms: Patient Portal Discharge page Care Plan Goals: Chest pain likely musculoskeletal and pleuritic resolved echocardiogram showed no wall motion abnormality and a stable Ef Health Concerns: Coronary artery disease/diabetes take all home medications as before Plan of Treatment: Outpatient follow-up with primary care physician and Cardiology as previously planned Assessment: Per discharge summary
== END 2022-01-31 17:15 | disposition home or self-care (01) ==
LOC: HO.ED 19:14 → HO.EDOVER 19:28 → HO.IMC 01-31 01:14
PROVIDERS: Admitting Provider Hospitalist; Emergency Provider Emergency Medicine; PCP Internal Medicine; Visit Provider Hospitalist
DX: R07.2 Precordial pain (principal); I25.10 Atherosclerotic heart disease of native coronary artery without angina pectoris; R06.02 Shortness of breath; I21.9 Acute myocardial infarction, unspecified; I73.9 Peripheral vascular disease, unspecified; E11.65 Type 2 diabetes mellitus with hyperglycemia; I10 Essential (primary) hypertension; E03.9 Hypothyroidism, unspecified; E78.5 Hyperlipidemia, unspecified; E55.9 Vitamin D deficiency, unspecified; J45.909 Unspecified asthma, uncomplicated; M81.0 Age-related osteoporosis without current pathological fracture; F17.210 Nicotine dependence, cigarettes, uncomplicated; Z98.890 Other specified postprocedural states; Z20.822 Contact with and (suspected) exposure to COVID-19; Z85.3 Personal history of malignant neoplasm of breast; Z95.5 Presence of coronary angioplasty implant and graft; Z88.8 Allergy status to other drugs, medicaments and biological substances; Z91.013 Allergy to seafood; Z79.82 Long term (current) use of aspirin; Z79.4 Long term (current) use of insulin; Z79.899 Other long term (current) drug therapy
CPT/HCPCS: 36415; 80048; 80053; 80061; 81001; 82043; 82306; 82947; 84484; 85025; 87086; 87635; 93005; 93308; 96374; 96375; 96376; 99212; 99215; 99218; 99285; J1170

== ENCOUNTER 2022-02-21 08:36 | Outpatient (REF) | payer MEDICARE, MEDICAID, SELFPAY ==
[2022-02-14 10:27] VITALS: BP 100/64; BP 110/70; BMI 25.9
--- NOTE | ~2022-02-21 | US_ITS ---
EXAMINATION: US ABDOMEN COMPLETE CLINICAL INFORMATION: Right upper quadrant pain. Rule out pancreatic or biliary source. COMPARISON: CT abdomen and pelvis 01/22/2022. Ultrasound abdomen complete 02/09/2021 and 01/28/2020. TECHNIQUE: Real-time imaging of the abdominal viscera. FINDINGS: PANCREAS: Normal. ABDOMINAL AORTA: The proximal, mid, and distal segments are normal in caliber. INFERIOR VENA CAVA: Visualized portions are normal. LIVER: The liver is normal in size. The liver contour is normal. Increased hepatic echogenicity suggesting hepatic steatosis. No focal hepatic lesion. There is no intrahepatic biliary duct dilatation seen. GALLBLADDER: Normal. The gallbladder is physiologically distended without evidence of stones, sludge, polyps, wall thickening or pericholecystic fluid. COMMON BILE DUCT: Normal in caliber measuring 0.4 cm in diameter. RIGHT KIDNEY: Nonobstructive calculus in the right renal lower pole measuring 3 mm. No hydronephrosis or focal parenchymal lesions. The kidney measures 11.0 cm in maximum dimension. LEFT KIDNEY: Normal. No hydronephrosis. No renal calculi or focal parenchymal lesions. The kidney measures 10.4 cm in maximum dimension. SPLEEN: Normal. The spleen measures 9.6 cm in maximum dimension. FREE FLUID: None. US/US abdomen complete IMPRESSION: 1. Increased hepatic echogenicity suggesting hepatic steatosis. 2. Nonobstructive calculus in the right renal lower pole measuring 3 mm.
== END 2022-02-21 08:37 | disposition home or self-care (01) ==
LOC: HO.US 08:36
PROVIDERS: Visit Provider Internal Medicine Gastroenterology
DX: R10.11 Right upper quadrant pain (principal)
CPT/HCPCS: 76700

== ENCOUNTER → 2022-03-01 13:56 | Outpatient (BNVA) | payer MEDICARE, MEDICAID, SELFPAY ==
[2022-02-14 10:27] VITALS: BP 100/64; BP 110/70; BMI 25.9
== END ==
PROVIDERS: PCP Internal Medicine; Referring Provider Internal Medicine; Visit Provider Nurse Practitioner Family
DX: I16.0 Hypertensive urgency (principal); F17.210 Nicotine dependence, cigarettes, uncomplicated; I25.2 Old myocardial infarction; Z86.73 Personal history of transient ischemic attack (TIA), and cerebral infarction without residual deficits; Z79.899 Other long term (current) drug therapy; Z95.5 Presence of coronary angioplasty implant and graft
CPT/HCPCS: 99212

== ENCOUNTER → 2022-03-16 07:52 | Outpatient (BNVA) | payer MEDICARE, MEDICAID, SELFPAY ==
[2022-02-14 10:27] VITALS: BP 100/64; BP 110/70
[2022-03-06 08:53] VITALS: BP 102/48; BMI 25.5
== END ==
PROVIDERS: PCP Internal Medicine; Referring Provider Internal Medicine; Visit Provider Internal Medicine Gastroenterology
DX: M05.9 Rheumatoid arthritis with rheumatoid factor, unspecified (principal); M79.7 Fibromyalgia; K52.9 Noninfective gastroenteritis and colitis, unspecified; R13.10 Dysphagia, unspecified; K21.9 Gastro-esophageal reflux disease without esophagitis; R10.11 Right upper quadrant pain; K59.09 Other constipation; Z79.899 Other long term (current) drug therapy
CPT/HCPCS: 99212

== ENCOUNTER 2022-03-26 15:04 | Emergency (ER) | payer MEDICARE, MEDICAID, SELFPAY ==
[2022-03-16 08:18] VITALS: BP 100/64; BP 102/48; BP 110/70; BMI 25.5
[2022-03-20 07:07] VITALS: BP 100/64; BP 102/48; BP 110/70; BMI 25.5
--- NOTE | ~2022-03-26 | XR_ITS ---
EXAMINATION: XR CHEST CLINICAL INFORMATION: Chest pain. COMPARISON: Chest radiograph dated from 11/25/2021. TECHNIQUE: 2 views of the chest were obtained. FINDINGS: Normal appearance of the cardiomediastinal silhouette. No focal airspace opacities, pleural effusions or pneumothorax. No acute osseous abnormalities. The imaged upper abdomen is within normal limits. XR/XR chest 2V IMPRESSION: No acute cardiopulmonary findings.
[2022-03-26 15:14] VITALS: BP 130/90; BP 164/90; PULSE 106; PULSE 110; RESP 19; TEMP 36.6; O2SAT 97; O2SAT 99; BMI 25.6
--- NOTE | 2022-03-26 15:17 | ECG_ITS ---
Test Reason : CHEST PAIN Blood Pressure : / mmHG Vent. Rate : 090 BPM Atrial Rate : 090 BPM P-R Int : 140 ms QRS Dur : 086 ms QT Int : 350 ms P-R-T Axes : 080 080 067 degrees QTc Int : 428 ms Normal sinus rhythm with sinus arrhythmia Normal ECG When compared with ECG of 30-JAN-2022 13:22, No significant change was found Referred By: Jennifer Chacon Electronically Signed By:MARIA ELENA APODACA MD
[2022-03-26 15:38] LABS: MANUAL DIFF FLAG NO
--- NOTE | 2022-03-26 15:38 | ED.CHESTPAIN ---
HPI - Chest Pain General Chief Complaint: Chest Pain Stated Complaint: CP,TOOK OWN NITRO PER EMS Time Seen by Provider: 03/26/22 15:08 Source: patient and EMS Mode of arrival: EMS Limitations: no limitations History of Present Illness HPI narrative: 61 yo female w/ past medical history of anxiety , asthma , bipolar, COPD, depression, DM, HLD, fibromyalgia, HTN, IBS, CAD with 2 stents (circumflex-december 2021) here with complaints of left-sided chest pain which radiates the left breast and left shoulder which began 1 hour prior to arrival the patient was watching TV. Patient tells me she felt nauseous when the pain occurred and short of breath. She tells me she took 2 sublingual nitro and her pain has improved but is still continuing. She denies any diaphoresis, dizziness, abdominal pain,or diarrhea. She tells me she has had some intermittent vomiting over the last few days 1-3 episodes daily. Vomit is nonbilious and nonbloody and not associated with any abdominal pain. Patient tells me she is taking 20 mg omeprazole daily. Related Data Home Medications Medication Instructions Recorded Confirmed blood sugar diagnostic (FreeStyle 12/26/21 03/16/22 Lite Strips) dulaglutide 1.5 mg/0.5 mL 0.5 ml SUBCUT WE 12/26/21 03/16/22 subcutaneous pen injector (Trulicity) insulin aspart U-100 100 unit/mL See Protocol SUBCUT TIDAC 12/26/21 03/16/22 (3 mL) subcutaneous pen (Novolog Flexpen U-100 Insulin aspart) pregabalin 200 mg capsule 1 cap PO BEDTIME 12/26/21 03/16/22 tizanidine 2 mg tablet 1 tab PO BEDTIME PRN 12/26/21 03/16/22 nitroglycerin 0.4 mg sublingual 0.4 mg SUBLINGUAL Q5M PRN 01/03/22 03/16/22 tablet insulin degludec 100 unit/mL (3 46 unit SUBCUT DAILY ml 01/23/22 03/16/22 mL) subcutaneous pen (Tresiba FlexTouch U-100 insulin) lamotrigine 25 mg tablet 25 mg PO BEDTIME 01/30/22 03/16/22 lisinopril 5 mg tablet 5 mg PO DAILY 03/01/22 03/16/22 Previous Rx's Medication Instructions Recorded pen needle, diabetic 31 gauge x #200 ea 03/21/21 5/16 (Comfort EZ Pen [place]) letrozole 2.5 mg tablet 2.5 mg PO DAILY #90 tab 11/08/21 acetaminophen 300 mg-codeine 30 mg 1 tab PO Q8H PRN 7 Days #21 tab 01/23/22 tablet losartan 25 mg tablet 25 mg PO DAILY 90 Days #90 tab 01/24/22 pantoprazole 40 mg tablet,delayed 40 mg PO BID #180 tab 01/24/22 release trazodone 100 mg tablet 100 mg PO BEDTIME 90 Days #90 tab 01/24/22 atorvastatin 80 mg tablet 80 mg PO DAILY 90 Days #90 tab 02/06/22 metoprolol tartrate 25 mg tablet 12.5 mg PO BID 90 Days #90 tab 02/06/22 ticagrelor 90 mg tablet (Brilinta) 90 mg PO BID 90 Days #180 tab 02/06/22 albuterol sulfate 90 mcg/actuation 2 puff INHALATION Q4-6H 30 Days 03/06/22 aerosol inhaler #8.5 ea abatacept 125 mg/mL subcutaneous 125 mg SUBCUT QWEEK #4 ml 03/22/22 auto-injector ([employer] ClickJect) Allergies Allergy/AdvReac Type Severity Reaction Status Date / Time dog dander [DOGS] Allergy Intermediate Respiratory Verified 03/16/22 09:10 distress ibuprofen [Ibuprofen] Allergy Intermediate STOMACH Verified 03/16/22 09:10 UPSET, abdominal pain, nausea and vomiting shellfish derived Allergy Intermediate Hives Verified 03/16/22 09:10 etanercept [From Enbrel] AdvReac Intermediate Facial Verified 03/16/22 09:10 Swelling metformin AdvReac Intermediate diarrhea Verified 03/16/22 09:10 metronidazole [From FLAGYL] AdvReac Intermediate DIARRHEA Verified 03/16/22 09:10 prednisone AdvReac Intermediate hallucinations, Verified 03/16/22 09:10 higher than 20 Review of Systems Review of Systems: Yes all other systems are reviewed and are negative Constitutional: Constitutional: Reports no additional constitutional complaints, Denies body ache(s), Denies chills, Denies fever(s), Denies headache(s) and Denies weakness Eyes: Eyes: Reports no additional eye complaints and Denies change in vision ENT: Reports system reviewed and no additional complaints, except as documented, Denies dizziness, Denies headache(s), Denies nasal congestion, Denies nasal discharge and Denies neck pain Cardiovascular: Cardiovascular: Reports no additional cardiovascular complaints, Reports chest pain, Denies leg edema and Reports dyspnea Respiratory: Respiratory: Reports no additional respiratory complaints, Denies cough and Reports dyspnea Gastrointestinal: Gastrointestinal: Reports no additional gastrointestinal complaints, Denies abdominal pain, Denies diarrhea, Reports nausea and Reports vomiting Genitourinary: Genitourinary: Reports no additional female genitourinary complaints and Denies urinary incontinence Musculoskeletal: Musculoskeletal: Reports no additional musculoskeletal complaints, Denies back pain, Denies arthralgias, Denies joint swelling, Denies neck pain, Denies numbness and Denies tingling Integumentary/Breasts: Skin/Breast: Reports system reviewed and no additional complaints, except as docu and Denies rash Neurologic: Reports system reviewed and no additional complaints, except as documented, Denies Abnormal speech present, Denies dizziness, Denies headache(s), Denies numbness, Denies tingling and Denies weakness PMFSH Past Medical History Attestation statement: The following information was validated with the patient. Source: old records reviewed and nursing notes reviewed Medical History Allergic rhinitis Allergic rhinitis Allergic rhinitis Anxiety Asthma Asthma Atherosclerotic cardiovascular disease Bipolar 1 disorder, depressed Bloody diarrhea Breast cancer Breast pain, right Bronchial asthma Colitis Colitis COPD (chronic obstructive pulmonary disease) Cough Depression Diabetes mellitus Diabetes type 2, uncontrolled Dyslipidemia Fibromyalgia Hospital discharge follow-up Hyperlipidemia LDL goal <100 Hyperparathyroidism Hypertension Hypothyroid Hypothyroid IDDM (insulin dependent diabetes mellitus) IDDM (insulin dependent diabetes mellitus) Infiltrating ductal carcinoma of left breast, stage 2 Insomnia Irritable bowel Osteoporosis PAD (peripheral artery disease) Rash Reactive airways dysfunction syndrome Restrictive airway disease Rheumatoid arthritis Seropositive rheumatoid arthritis T2DM (type 2 diabetes mellitus) Thyroid nodule Vitamin D deficiency Surgical History H/O cardiac catheterization H/O: hysterectomy History of bunionectomy of both great toes History of colonoscopy History of esophagogastroduodenoscopy (EGD) History of lumpectomy of left breast History of pubovaginal sling History of tubal ligation Family History Family History Mother Diabetes HTN (hypertension) Uterus cancer Malignant tumor of head Breast cancer Father Diabetes HTN (hypertension) CVD (cardiovascular disease) Heart problem Maternal Aunt Breast cancer Brother Myocardial infarction S/P CABG x 4 Family/Other FH: mental illness Family/Other Lung cancer Other Mental health disorder Social History Social History Household Members: Family Household Members Other:: sister Housing: Apartment Do you presently have visiting nurse or other home services: Yes (sister=user experience designer) Alcohol intake: never Patient Tobacco Use Status: Former Tobacco user Quit Date: currently one cigarette per day Tobacco use type: Cigarette Cigarette Packs Per Day: 1 Cigarettes Per Day: 2 Years Smoked: 50 e-Cigarette/Vaping Use: Former Use Second Hand Smoke Exposure: No Advance Directives: Yes Advance Directives on File: Yes Advance Directives Date on File: 12/22/21 service: No Current occupational status: disabled Current occupation: rt handed Cognitive needs: No Hearing needs: No Vision needs: No Physical Exam Vital Signs: Vital Signs: Last Vital Signs Temp 97.9 F 03/26/22 15:54 Pulse 75 03/26/22 17:22 Resp 14 03/26/22 17:22 BP 126/72 03/26/22 17:22 Pulse Ox 99 03/26/22 17:22 BMI result Body Mass Index 25.6 Const: General: cooperative, healthy appearing, comfortable and no acute distress Orientation/consciousness: patient oriented x3 Limitations: no limitations HEENT: Head: Yes normal to inspection Ears: hearing grossly normal bilaterally and TM's normal bilaterally General nose exam: Normal external nose present Face and sinus: Yes normal facial exam Mouth: Normal oral and palatal mucosa present Throat: Yes posterior oropharynx normal, Yes tonsils normal and Yes uvula midline Eyes: General: appearance normal, both eyes and all related structures Pupils: Equal, round and reactive pupils present Neck: Neck: Yes normal visual inspection Chest: Other: Left chest tender to palpate, worsened with deep breathing and movement of the left arm and body. Chest palpation & inspection: normal inspection of the chest Resp: Effort & Inspection: normal respiratory effort Auscultation: clear to auscultation bilaterally Cardio: Rate: regular rate Rhythm: regular rhythm Peripheral pulses: Peripheral pulses 2+ throughout GI: Inspection: Yes normal to inspection Palpation (GI): Soft to palpation and nontender Auscultation: normal bowel sounds Back/Spine/Pelvis: Thoracic/Lumbar Spine: thoracic and lumbar spine normal to inspection Skin: General skin exam: no rashes or lesions noted Neuro: General: patient oriented x3, no focal motor deficits and normal sensation to monofilament Cranial nerves: Yes Equal, round and reactive pupils present Cognition (Neuro): normal cognition Speech: No Abnormal speech present Gait exam (Neuro): Normal gait present Motor exam (neuro): 5/5 motor strength present throughout Extrem: General: Yes normal to inspection, Yes no pedal edema and Yes no calf tenderness Course Course Course Narrative: 61-year-old female here with reports of left-sided chest pain that is worsened with palpation, deep breathing, movement of the arm and trunk which began 1 hour prior to arrival the patient was at rest with associated shortness of breath and nausea. Patient took 2 sublingual nitro prior to arrival with some improvement in pain. She does still have pain though. Will check labs, EKG, chest x-ray. Will provide analgesia -recently stented 12/2021 Reevaluation(s) Reevaluation #1: Sign out to lulú BAHENA pending repeat troponin Time: 18:00 MDM - Chest Pain MDM Narrative Medical decision making narrative: ACS Medical Records Data Attestation: I reviewed the patient's medical records. Lab Data Attestation: I reviewed the patient's lab results. Result diagrams: 03/26/22 15:31 03/26/22 16:53 Labs: Lab Results 03/26/22 03/26/22 03/26/22 Range/Units 15:31 15:31 15:31 WBC 8.7 (4.8-10.8) X10*3/uL RBC 4.40 (4.20-5.50) X10*6/uL Hgb 12.6 (12.0-16.0) g/dl Hct 38.2 (37.0-47.0) % MCV 86.8 (80.0-98.0) fL MCH 28.6 (27.0-33.0) pg MCHC 33.0 (31.0-35.0) g/dl RDW 13.0 (11.0-16.0) % Plt Count 288 (160-400) X10*3/uL MPV 11.1 (9.4-12.3) fL Immature Gran % (Auto) 0.3 (0.0-0.4) % Neut % (Auto) 60.4 (45-73) % Lymph % (Auto) 33.7 (20-40) % [place] % (Auto) 5.0 (2-11) % Eos % (Auto) 0.5 (0-4) % Baso % (Auto) 0.1 (0-2) % Lymph # (Auto) 2.9 (1.2-4.9) X10*3/uL [place] # (Auto) 0.4 (0.1-1.2) X10*3/uL Eos # (Auto) 0.0 (0.0-0.4) X10*3/uL Baso # (Auto) 0.0 (0.0-0.2) X10*3/uL Abs Immat Gran (auto) 0.03 (0.00-0.03) X10*3/uL Absolute Neuts (auto) 5.3 (2.0-8.3) x10*3/uL Absolute Nucleated RBC 0.000 (0.0-0.012) X10*3/uL Nucleated RBC % (auto) 0.0 (0.0-0.2) /100WBC PT (9.9-13.0) SEC INR (0.9-1.1) Sodium (135-145) mmol/L Potassium (3.3-5.1) mmol/L Chloride (96-108) mmol/L Carbon Dioxide (22-29) mmol/L Anion Gap (12-20) BUN (9-16) mg/dL Creatinine (0.5-1.4) mg/dL Estim Creat Clear Calc Estimated GFR Random Glucose (60-115) mg/dL Calcium (8.4-10.2) mg/dL Magnesium (1.6-2.6) mg/dL Total Bilirubin (0.0-1.0) mg/dL Direct Bilirubin (0.0-0.5) mg/dL AST (5-31) U/L ALT (0-31) U/L Alkaline Phosphatase (39-117) U/L Troponin I High Sens 4.6 (<3.5-17.0) ng/L Total Protein (6.5-8.0) g/dL Albumin (3.5-5.0) g/dL Lipase (8-78) U/L COVID-19 (KRISS) Negative (Negative) COVID-19 Clin Com See Note Influenza Type A (CEDRIC) (Negative) Influenza Type B (CEDRIC) (Negative) Influenza A & B Note 03/26/22 03/26/22 03/26/22 Range/Units 15:31 16:52 16:53 WBC (4.8-10.8) X10*3/uL RBC (4.20-5.50) X10*6/uL Hgb (12.0-16.0) g/dl Hct (37.0-47.0) % MCV (80.0-98.0) fL MCH (27.0-33.0) pg MCHC (31.0-35.0) g/dl RDW (11.0-16.0) % Plt Count (160-400) X10*3/uL MPV (9.4-12.3) fL Immature Gran % (Auto) (0.0-0.4) % Neut % (Auto) (45-73) % Lymph % (Auto) (20-40) % [place] % (Auto) (2-11) % Eos % (Auto) (0-4) % Baso % (Auto) (0-2) % Lymph # (Auto) (1.2-4.9) X10*3/uL [place] # (Auto) (0.1-1.2) X10*3/uL Eos # (Auto) (0.0-0.4) X10*3/uL Baso # (Auto) (0.0-0.2) X10*3/uL Abs Immat Gran (auto) (0.00-0.03) X10*3/uL Absolute Neuts (auto) (2.0-8.3) x10*3/uL Absolute Nucleated RBC (0.0-0.012) X10*3/uL Nucleated RBC % (auto) (0.0-0.2) /100WBC PT 13.8 H (9.9-13.0) SEC INR 1.2 H (0.9-1.1) Sodium 140 (135-145) mmol/L Potassium 3.7 (3.3-5.1) mmol/L Chloride 108 (96-108) mmol/L Carbon Dioxide 26 (22-29) mmol/L Anion Gap 10 L (12-20) BUN 10 (9-16) mg/dL Creatinine 0.81 (0.5-1.4) mg/dL Estim Creat Clear Calc 55.2 Estimated GFR > 60 Random Glucose 160 H (60-115) mg/dL Calcium 9.5 (8.4-10.2) mg/dL Magnesium 2.0 (1.6-2.6) mg/dL Total Bilirubin 0.3 (0.0-1.0) mg/dL Direct Bilirubin < 0.2 (0.0-0.5) mg/dL AST 21 (5-31) U/L ALT 28 (0-31) U/L Alkaline Phosphatase 54 (39-117) U/L Troponin I High Sens (<3.5-17.0) ng/L Total Protein 6.7 (6.5-8.0) g/dL Albumin 3.9 (3.5-5.0) g/dL Lipase 52 (8-78) U/L COVID-19 (KRISS) (Negative) COVID-19 Clin Com Influenza Type A (CEDRIC) Negative (Negative) Influenza Type B (CEDRIC) Negative (Negative) Influenza A & B Note See Note Imaging Data Chest x-ray: Attestation: I personally reviewed and interpreted this imaging study as follows: Radiologist's impression: EXAMINATION: XR CHEST CLINICAL INFORMATION: Chest pain. COMPARISON: Chest radiograph dated from 11/25/2021. TECHNIQUE: 2 views of the chest were obtained. FINDINGS: Normal appearance of the cardiomediastinal silhouette. No focal airspace opacities, pleural effusions or pneumothorax. No acute osseous abnormalities. The imaged upper abdomen is within normal limits. XR/XR chest 2V IMPRESSION: No acute cardiopulmonary findings. ECG Data ECG #1: Attestation: I personally reviewed and interpreted this ECG as follows: ECG interpretation date: 03/26/22 ECG interpretation time: 15:15 Interpretation: Normal sinus rhythm with a rate of 90, normal GA, normal QRS, normal QT Discharge Plan Discharge Clinical Impression: Chest pain Patient Disposition: Still a Patient Prescriptions: No Action trazodone 100 mg tablet 100 mg PO BEDTIME 90 Days Qty: 90 0RF losartan 25 mg tablet 25 mg PO DAILY 90 Days Qty: 90 2RF pantoprazole 40 mg tablet,delayed release (DR/EC) 40 mg PO BID Qty: 180 0RF albuterol sulfate 90 mcg/actuation HFA aerosol inhaler 2 puff inhalation Q4-6H 30 Days Qty: 8.5 3RF [employer] 125 mg/mL auto-injector 125 mg subcut QWEEK Qty: 4 0RF letrozole 2.5 mg Tablet 2.5 mg PO DAILY Qty: 90 4RF tizanidine 2 mg tablet 1 tab PO BEDTIME PRN (Reason: muscle spasm) 0RF (DME) FreeStyle Lite Strips Strip MISCELLANEOUS DAILY 0RF pregabalin 200 mg capsule 1 cap PO BEDTIME 0RF Trulicity 1.5 mg/0.5 mL pen injector 0.5 ml subcut WE 0RF insulin aspart U-100 [Novolog Flexpen U-100 Insulin] 100 unit/mL (3 mL) insulin pen See Protocol sliding scale dose subcut TIDAC 0RF Protocol: Insulin Correction Scale Less than or equal to 110 ---- Give (units): 0 111 to 150 Give (units): 0 151 to 200 Give (units): 2 201 to 250 Give (units): 4 251 to 300 Give (units): 6 301 to 350 Give (units): 8 Greater than 350 Give (units): 10 Call MD if Blood Glucose > : 350 lamotrigine 25 mg tablet 25 mg PO BEDTIME 0RF lisinopril 5 mg tablet 5 mg PO DAILY 0RF (DME) pen needle, diabetic [Comfort EZ Pen [place]] 31 gauge x 5/16 needle See Rx Instructions .ROUTE .MEDSUPPLY Qty: 200 11RF Rx Instructions: Use 1 pen needle 6 times a day nitroglycerin 0.4 mg tablet, sublingual 0.4 mg sublingual Q5M PRN (Reason: Chest Pain) 0RF Tresiba FlexTouch U-100 100 unit/mL (3 mL) insulin pen 46 unit subcut DAILY 0RF acetaminophen-codeine 300-30 mg tablet 1 tab PO Q8H PRN (Reason: pain) 7 Days Qty: 21 0RF atorvastatin 80 mg tablet 80 mg PO DAILY 90 Days Qty: 90 1RF Rx Instructions: patient lost recent RX, please fill this as emergency RX this one time metoprolol tartrate 25 mg tablet 12.5 mg PO BID 90 Days Qty: 90 1RF Rx Instructions: Patient recently lost her Rx, please fill this rx as an emergency release. Thanks Brilinta 90 mg tablet 90 mg PO BID 90 Days Qty: 180 1RF Rx Instructions: Please fill Rx today, patient lost previous RX, fill as emergency this one time
[2022-03-26 15:47] LABS: INTERNATIONAL NORM RATIO 1.2 (0.9-1.1); Prothrombin Time 13.8 SEC (9.9-13.0)
[2022-03-26 15:54] VITALS: BP 123/74; PULSE 89; RESP 19; TEMP 36.6; O2SAT 99
[2022-03-26 15:57] VITALS: RESP 18
[2022-03-26] MEDS: Morphine Sulfate 4 MG/ML CARTRIDGE IVPUSH (15:57)
[2022-03-26] MEDS: ondansetron HCL 4 MG/2 ML VIAL IVPUSH (15:58)
[2022-03-26 16:00] LABS: Troponin-I High Sensitivity 4.6 ng/L (<3.5-17.0)
[2022-03-26 16:13] LABS: Basophils Percent Auto 0.1 % (0-2); Eosinophils Percent Auto 0.5 % (0-4); Hematocrit 38.2 % (37.0-47.0); Hemoglobin 12.6 g/dl (12.0-16.0); Imm Gran Abs Auto 0.03 X10*3/uL (0.00-0.03); Imm Gran Pct Auto 0.3 % (0.0-0.4); Lymphocytes Absolute Auto 2.9 X10*3/uL (1.2-4.9); Lymphocytes Percent Auto 33.7 % (20-40); Mean Corpuscular Hemoglobin 28.6 pg (27.0-33.0); Mean Corpuscular Volume 86.8 fL (80.0-98.0); Mean Platelet Volume 11.1 fL (9.4-12.3); Monocytes Absolute Auto 0.4 X10*3/uL (0.1-1.2); Neutrophils Absolute Auto 5.3 x10*3/uL (2.0-8.3); Neutrophils Percent Auto 60.4 % (45-73); Platelet Count 288 X10*3/uL (160-400); White Blood Count 8.7 X10*3/uL (4.8-10.8)
[2022-03-26 16:20] LABS: COVID-19 Test Negative (Negative); IDNOW Serial# 9DB6401D
[2022-03-26 17:16] LABS: Influenza A Negative (Negative); Influenza B2 Negative (Negative)
[2022-03-26 17:22] VITALS: BP 126/72; PULSE 75; RESP 14; O2SAT 99
[2022-03-26 17:26] LABS: Alanine Aminotransferase 28 U/L (0-31); Albumin Level 3.9 g/dL (3.5-5.0); Alkaline Phosphatase 54 U/L (39-117); Anion Gap 10 (12-20); Aspartate Amino Transferase 21 U/L (5-31); Bilirubin Direct < 0.2 mg/dL (0.0-0.5); Bilirubin Total 0.3 mg/dL (0.0-1.0); Blood Urea Nitrogen 10 mg/dL (9-16); Calcium 9.5 mg/dL (8.4-10.2); Carbon Dioxide 26 mmol/L (22-29); Chloride 108 mmol/L (96-108); Creatinine Clr Calc Pharmacy 55.2; Estimated Glomerular Filt Rate > 60; Glucose Random 160 mg/dL (60-115); Potassium 3.7 mmol/L (3.3-5.1); Sodium 140 mmol/L (135-145); Total Protein 6.7 g/dL (6.5-8.0)
[2022-03-26] MEDS: Acetaminophen 325 MG TABLET 975 MG PO (17:42)
[2022-03-26 17:47] LABS: Lipase 52 U/L (8-78)
[2022-03-26 18:46] VITALS: BP 117/78; PULSE 75; RESP 14; TEMP 36.9; O2SAT 96
[2022-03-26 19:48] VITALS: BP 139/79; PULSE 76; RESP 16; TEMP 37.1; O2SAT 96
== END 2022-03-26 19:51 | disposition home or self-care (01) ==
PROVIDERS: Nurse Practitioner Family; Physician Assistant Medical; Emergency Provider Emergency Medicine; PCP Internal Medicine
DX: R07.9 Chest pain, unspecified (principal); I10 Essential (primary) hypertension; I25.10 Atherosclerotic heart disease of native coronary artery without angina pectoris; E11.9 Type 2 diabetes mellitus without complications; Z79.4 Long term (current) use of insulin; Z79.899 Other long term (current) drug therapy; Z95.5 Presence of coronary angioplasty implant and graft; Z20.822 Contact with and (suspected) exposure to COVID-19
CPT/HCPCS: 36415; 71046; 80048; 80076; 83690; 83735; 84484; 85025; 85610; 87502; 87635; 93005; 96374; 96375; 99284; 99285; J2270; J2405

== ENCOUNTER 2022-04-24 10:17 | Outpatient (REF) | payer MEDICARE, MEDICAID, SELFPAY ==
[2022-03-20 07:07] VITALS: BP 100/64; BP 102/48; BP 110/70; BMI 25.5
[2022-04-24 12:14] LABS: Alanine Aminotransferase 22 U/L (0-31); Albumin Level 4.4 g/dL (3.5-5.0); Alkaline Phosphatase 73 U/L (39-117); Anion Gap 16 (12-20); Aspartate Amino Transferase 19 U/L (5-31); Bilirubin Total 0.4 mg/dL (0.0-1.0); Blood Urea Nitrogen 11 mg/dL (9-16); C Reactive Protein 0.31 mg/dL (< or = 0.50); Carbon Dioxide 24 mmol/L (22-29); Chloride 107 mmol/L (96-108); Cholesterol 189 mg/dL; Estimated Glomerular Filt Rate > 60; Glucose Random 119 mg/dL (60-115); HDL Cholesterol 33 mg/dL; LDL Cholesterol Calculated 122 mg/dl; Phosphorus 3.1 mg/dL (2.7-4.5); Potassium 5.3 mmol/L (3.3-5.1); Sodium 142 mmol/L (135-145); Total Protein 7.4 g/dL (6.5-8.0); Triglycerides 172 mg/dL
[2022-04-24 12:26] LABS: Free T4 (Free Thyroxine) 0.96 ng/dL (0.71-1.85); Thyroid Stimulating Hormone 0.52 uIU/mL (0.32-4.0); Vitamin D 25-OH Total 38.7 ng/mL (>30)
[2022-04-24 12:33] LABS: Erythrocyte Sedimentation Rate 10 MM/HR (0-20)
[2022-04-24 12:47] LABS: Creatinine Urine 184.88 mg/dL; Microalbum/Creatinine Ratio Ur 4.3 ug/mg cr
[2022-04-25 15:35] LABS: Calcium (PTHI) 9.7 mg/dL (8.6-10.4); PTHI 42 pg/mL (16-77)
[2022-04-26 01:07] LABS: LDL Cholesterol Direct 133 mg/dL (<100)
[2022-04-27 14:52] LABS: Alkaline Phosphatase Bone 11.6 mcg/L (5.6-29.0)
== END 2022-04-24 10:18 | disposition home or self-care (01) ==
LOC: HO.LAB 10:17
PROVIDERS: Nurse Practitioner Family; Nurse Practitioner Gerontology; PCP Internal Medicine; Visit Provider Internal Medicine
DX: M81.0 Age-related osteoporosis without current pathological fracture (principal); E55.9 Vitamin D deficiency, unspecified; E11.65 Type 2 diabetes mellitus with hyperglycemia; M05.9 Rheumatoid arthritis with rheumatoid factor, unspecified; Z79.4 Long term (current) use of insulin
CPT/HCPCS: 36415; 80053; 80061; 82043; 82306; 83721; 83970; 84075; 84100; 84439; 84443; 85652; 86140

== ENCOUNTER → 2022-05-10 09:04 | Outpatient (BNVA) | payer MEDICARE, MEDICAID, SELFPAY ==
[2022-04-30 10:59] VITALS: BP 100/64; BP 102/48; BP 110/70; BMI 25.5
== END ==
PROVIDERS: PCP Internal Medicine; Visit Provider Internal Medicine
DX: M81.0 Age-related osteoporosis without current pathological fracture (principal); E21.3 Hyperparathyroidism, unspecified; E55.9 Vitamin D deficiency, unspecified; E87.5 Hyperkalemia
CPT/HCPCS: Q3014

== ENCOUNTER 2022-05-23 12:40 | Emergency (ER) | payer MEDICARE, MEDICAID, SELFPAY ==
[2022-04-30 10:59] VITALS: BP 100/64; BP 102/48; BP 110/70; BMI 25.5
--- NOTE | ~2022-05-23 | XR_ITS ---
EXAMINATION: XR SHOULDER, LEFT CLINICAL INFORMATION: Left shoulder pain. COMPARISON: 06/05/2021 left shoulder radiographs. TECHNIQUE: Three views of the left shoulder. FINDINGS: Mild narrowing of the left acromio clavicular joint is seen with normal alignment. There is no acute fracture or dislocation. The glenohumeral joint is unremarkable. The visualized left ribs are intact. The soft tissues are unremarkable. XR/XR shoulder LT min 2V IMPRESSION: Mild narrowing of the left acromioclavicular joint space could be secondary to positioning or could be degenerative in nature. No other significant abnormality.
[2022-05-23 13:15] VITALS: BP 126/74; PULSE 97; RESP 18; TEMP 36.7; O2SAT 96; BMI 24.1
--- NOTE | 2022-05-23 14:57 | ED_ITS ---
HPI - Extremity Problem General Chief complaint: Extremity Injury, Upper Stated complaint: L shoulder pain Time Seen by Provider: 05/23/22 14:52 Source: patient Mode of arrival: ambulatory Limitations: no limitations History of Present Illness HPI Narrative: 61 yo female w/ past medical history of anxiety , asthma , bipolar, COPD, depression, DM, HLD, fibromyalgia, HTN, IBS, CAD with 2 stents (circumflex-december 2021) here with reports of left shoulder pain for 3 days with no known injury or trauma. Patient tells me pain is worsened with movement of the left arm. No fevers, chills, chest pain, shortness of breath, cough. Related Data Home Medications Medication Instructions Recorded Confirmed blood sugar diagnostic (FreeStyle 12/26/21 05/10/22 Lite Strips) dulaglutide 1.5 mg/0.5 mL 0.5 ml subcut WE 12/26/21 05/10/22 subcutaneous pen injector (Trulicity) insulin aspart U-100 100 unit/mL See Protocol subcut TIDAC 12/26/21 05/10/22 (3 mL) subcutaneous pen (Novolog Flexpen U-100 Insulin aspart) pregabalin 200 mg capsule 1 cap PO BEDTIME 12/26/21 05/10/22 tizanidine 2 mg tablet 1 tab PO BEDTIME PRN muscle spasm 12/26/21 05/10/22 nitroglycerin 0.4 mg sublingual 0.4 mg sublingual Q5M PRN Chest 01/03/22 05/10/22 tablet Pain lamotrigine 25 mg tablet 25 mg PO BEDTIME 01/30/22 05/10/22 aspirin 81 mg tablet,delayed 1 tab PO DAILY 04/26/22 05/10/22 release Previous Rx's Medication Instructions Recorded pen needle, diabetic 31 gauge x #200 ea 03/21/2104/02 (Comfort EZ Pen [place]) letrozole 2.5 mg tablet 2.5 mg PO DAILY #90 tabs 11/08/21 acetaminophen 300 mg-codeine 30 mg 1 tab PO Q8H PRN pain 7 days #21 01/23/22 tablet tabs losartan 25 mg tablet 25 mg PO DAILY 90 days #90 tabs 01/24/22 pantoprazole 40 mg tablet,delayed 40 mg PO BID #180 tabs 01/24/22 release atorvastatin 80 mg tablet 80 mg PO DAILY 90 days #90 tabs 02/06/22 metoprolol tartrate 25 mg tablet 12.5 mg PO BID 90 days #90 tabs 02/06/22 ticagrelor 90 mg tablet (Brilinta) 90 mg PO BID 90 days #180 tabs 02/06/22 albuterol sulfate 90 mcg/actuation 2 puff inhalation Q4-6H copd 30 03/06/22 aerosol inhaler days #8.5 ea insulin degludec 100 unit/mL (3 46 unit (0.46 mL) subcut DAILY #15 04/06/22 mL) subcutaneous pen (Tresiba mL FlexTouch U-100 insulin) trazodone 100 mg tablet 100 mg PO BEDTIME 90 days #90 tabs 04/09/22 prochlorperazine maleate 10 mg 10 mg PO BID nausea and vomiting 5 04/30/22 tablet (Compazine) days #10 tabs sucralfate 100 mg/mL oral 10 ml PO BID PRN GERD 15 days #300 04/30/22 suspension (Carafate) mL ipratropium 0.5 mg-albuterol 3 mg 3 ml inhalation Q6H PRN wheezing 05/03/22 (2.5 mg base)/3 mL nebulization #180 mL soln abatacept 125 mg/mL subcutaneous 125 mg subcut QWEEK #4 mL 05/07/22 auto-injector (Orencia ClickJect) cyclobenzaprine 10 mg tablet 10 mg PO TID PRN muscle spasm #10 05/23/22 tabs oxycodone 5 mg tablet 5 mg PO Q8H PRN pain #5 tabs 05/23/22 Allergies Allergy/AdvReac Type Severity Reaction Status Date / Time dog dander [DOGS] Allergy Intermediate Respiratory Verified 05/23/22 13:15 distress ibuprofen [Ibuprofen] Allergy Intermediate STOMACH Verified 05/23/22 13:15 UPSET, abdominal pain, nausea and vomiting shellfish derived Allergy Intermediate Hives Verified 05/10/22 09:35 etanercept [From Enbrel] AdvReac Intermediate Facial Verified 05/23/22 13:15 Swelling metformin AdvReac Intermediate diarrhea Verified 05/23/22 13:15 metronidazole [From FLAGYL] AdvReac Intermediate DIARRHEA Verified 05/23/22 13:15 prednisone AdvReac Intermediate hallucinations, Verified 05/23/22 13:15 higher than 20 Review of Systems Review of Systems: Yes all other systems are reviewed and are negative Constitutional: Constitutional: Reports no additional constitutional complaints, Denies body ache(s), Denies chills, Denies fever(s), Denies headache(s) and Denies weakness Eyes: Eyes: Reports no additional eye complaints and Denies change in vision ENT: Reports system reviewed and no additional complaints, except as documented, Denies dizziness, Denies headache(s), Denies nasal congestion, Denies nasal discharge and Denies neck pain Cardiovascular: Cardiovascular: Reports no additional cardiovascular complaints, Denies chest pain, Denies leg edema and Denies dyspnea Respiratory: Respiratory: Reports no additional respiratory complaints, Denies cough and Denies dyspnea Gastrointestinal: Gastrointestinal: Reports no additional gastrointestinal complaints, Denies abdominal pain, Denies diarrhea, Denies nausea and Denies vomiting Genitourinary: Genitourinary: Reports no additional female genitourinary complaints and Denies urinary incontinence Musculoskeletal: Musculoskeletal: Reports no additional musculoskeletal complaints, Denies back pain, Reports arthralgias, Denies joint swelling, Denies neck pain, Denies numbness and Denies tingling Integumentary/Breasts: Skin/Breast: Reports system reviewed and no additional complaints, except as docu and Denies rash Neurologic: Reports system reviewed and no additional complaints, except as documented, Denies Abnormal speech present, Denies dizziness, Denies headache(s), Denies numbness, Denies tingling and Denies weakness PMFSH Past Medical History Attestation statement: The following information was validated with the patient. Source: old records reviewed and nursing notes reviewed Medical History Allergic rhinitis Allergic rhinitis Allergic rhinitis Anxiety Asthma Asthma Atherosclerotic cardiovascular disease Bipolar 1 disorder, depressed Bloody diarrhea Breast cancer Breast pain, right Bronchial asthma Colitis Colitis COPD (chronic obstructive pulmonary disease) Cough Depression Diabetes mellitus Diabetes type 2, uncontrolled Dyslipidemia Fibromyalgia Hospital discharge follow-up Hyperkalemia Hyperlipidemia LDL goal <100 Hyperparathyroidism Hypertension Hypothyroid Hypothyroid IDDM (insulin dependent diabetes mellitus) IDDM (insulin dependent diabetes mellitus) Infiltrating ductal carcinoma of left breast, stage 2 Insomnia Irritable bowel Osteoporosis PAD (peripheral artery disease) Rash Reactive airways dysfunction syndrome Restrictive airway disease Rheumatoid arthritis Seropositive rheumatoid arthritis T2DM (type 2 diabetes mellitus) Thyroid nodule Vitamin D deficiency Surgical History H/O cardiac catheterization H/O: hysterectomy History of bunionectomy of both great toes History of colonoscopy History of esophagogastroduodenoscopy (EGD) History of lumpectomy of left breast History of pubovaginal sling History of tubal ligation Family History Family History Mother Diabetes HTN (hypertension) Uterus cancer Malignant tumor of head Breast cancer Father Diabetes HTN (hypertension) CVD (cardiovascular disease) Heart problem Maternal Aunt Breast cancer Brother Myocardial infarction S/P CABG x 4 Family/Other FH: mental illness Family/Other Lung cancer Other Mental health disorder Social History Social History Household Members: Family Household Members Other:: sister Housing: Apartment Are you a primary patient care associate to a significant other at home: No Do you presently have visiting nurse or other home services: Yes (sister=multimedia designer) Alcohol intake: never Patient Tobacco Use Status: Current someday Tobacco user Tobacco use type: Cigarette Cigarette Packs Per Day: 1 Cigarettes Per Day: 2 Years Smoked: 50 e-Cigarette/Vaping Use: Former Use Second Hand Smoke Exposure: No Advance Directives: Yes Advance Directives on File: Yes Advance Directives Date on File: 12/22/21 service: No Current occupational status: disabled Current occupation: rt handed Cognitive needs: No Hearing needs: No Vision needs: No Physical Exam Vital Signs: Vital Signs: Last Vital Signs Temp 98.1 F 05/23/22 13:15 Pulse 97 05/23/22 13:15 Resp 18 05/23/22 13:15 BP 126/74 05/23/22 13:15 Pulse Ox 96 05/23/22 13:15 O2 Del Method 05/23/22 13:15 BMI result Body Mass Index 24.1 Const: General: cooperative, healthy appearing, comfortable and no acute distress Orientation/consciousness: patient oriented x3 Limitations: no limitations HEENT: Head: Yes normal to inspection Ears: hearing grossly normal bilaterally General nose exam: Normal external nose present Face and sinus: Yes normal facial exam Mouth: Normal oral and palatal mucosa present Throat: Yes posterior oropharynx normal Eyes: General: appearance normal, both eyes and all related structures Pupils: Equal, round and reactive pupils present Neck: Neck: Yes normal visual inspection Chest: Chest palpation & inspection: normal inspection of the chest Resp: Effort & Inspection: normal respiratory effort Auscultation: clear to auscultation bilaterally Cardio: Rate: regular rate Rhythm: regular rhythm Peripheral pulses: Peripheral pulses 2+ throughout GI: Inspection: Yes normal to inspection Palpation (GI): Soft to palpation and nontender Auscultation: normal bowel sounds Back/Spine/Pelvis: Thoracic/Lumbar Spine: thoracic and lumbar spine normal to inspection Skin: General skin exam: no rashes or lesions noted Neuro: General: patient oriented x3, no focal motor deficits and normal sensation to monofilament Cranial nerves: Yes Equal, round and reactive pupils present Cognition (Neuro): normal cognition Speech: No Abnormal speech present Gait exam (Neuro): Normal gait present Motor exam (neuro): 5/5 motor strength present throughout Extrem: Other: There is tenderness the left proximal humerus and over the left trapezius. Pain is worsened with abduction of the extremity. Palpable radial and ulna pulses. No weakness, sensation loss. General: Yes normal to inspection Course Course Course Narrative: X-ray show some arthritic changes with mild narrowing of the acromioclavicular joint space which appears degenerative in nature. Patient will be treated with low-dose muscle relaxants and oxycodone p.r.n.. Recommend follow-up with Orthopedics for persistent symptoms. Reviewed worrisome signs and symptoms and when to return to the emergency department. Comfortable discharge home. MDM - Extremity (Nontraumatic) MDM Narrative Medical decision making narrative: 61-year-old female here with atraumatic left shoulder pain that is worsened with movement over the last 3 days. On exam patient has pain over the proximal humerus and trapezius is worsened with abduction of the extremity. Will check x-rays Medical Records Attestation: I reviewed the patient's medical records. Lab Data Attestation: I reviewed the patient's lab results. Imaging Data shoulder xray: Attestation: I personally reviewed and interpreted this imaging study as follows: Radiologist's impression: Launch?Image [address] [address] XRay Report Signed Patient: Sosa Joiner MR#: [id number] : 1960 Acct:[id number] Age/Sex: 61 / F ADM Date: 05/23/22 Loc: HO.ED Attending Dr: Ordering Physician: Sammi ED Physician Date of Service: 05/23/22 Procedure(s): XR shoulder LT min 2V Accession Number(s): [id number] cc: Generic ED Physician~ EXAMINATION: XR SHOULDER, LEFT CLINICAL INFORMATION: Left shoulder pain.? COMPARISON: 06/05/2021 left shoulder radiographs.? TECHNIQUE: Three views of the left shoulder. FINDINGS: Mild narrowing of the left acromio clavicular joint is seen with normal alignment. There is no acute fracture or dislocation. The glenohumeral joint is unremarkable. The visualized left ribs are intact. The soft tissues are unremarkable. XR/XR shoulder LT min 2V IMPRESSION: Mild narrowing of the left acromioclavicular joint space could be secondary to positioning or could be degenerative in nature. No other significant abnormality. Discharge Plan Discharge Clinical Impression: Osteoarthritis of left shoulder region Patient Disposition: Home, Self-Care Instructions: Osteoarthritis (ED) Additional Instructions: Continue heat Continue Tylenol Gentle stretching Follow-up with Orthopedics if having persistent pain after 7 days Prescriptions: New cyclobenzaprine 10 mg tablet 10 mg PO TID PRN (Reason: muscle spasm) Qty: 10 0RF oxycodone 5 mg tablet 5 mg PO Q8H PRN (Reason: pain) Qty: 5 0RF Rx Instructions: Partial Fill upon patient request. No Action losartan 25 mg tablet 25 mg PO DAILY 90 Days Qty: 90 2RF pantoprazole 40 mg tablet,delayed release (DR/EC) 40 mg PO BID Qty: 180 0RF albuterol sulfate 90 mcg/actuation HFA aerosol inhaler 2 puff inhalation Q4-6H 30 Days Qty: 8.5 3RF Tresiba FlexTouch U-100 100 unit/mL (3 mL) insulin pen 46 unit subcut DAILY Qty: 15 5RF trazodone 100 mg tablet 100 mg PO BEDTIME 90 Days Qty: 90 0RF ipratropium-albuterol 0.5 mg-3 mg(2.5 mg base)/3 mL solution for nebulization 3 ml inhalation Q6H PRN (Reason: wheezing) Qty: 180 2RF Orencia ClickJect 125 mg/mL auto-injector 125 mg subcut QWEEK Qty: 4 2RF letrozole 2.5 mg Tablet 2.5 mg PO DAILY Qty: 90 4RF aspirin 81 mg tablet,delayed release (DR/EC) 1 tab PO DAILY tizanidine 2 mg tablet 1 tab PO BEDTIME PRN (Reason: muscle spasm) (DME) FreeStyle Lite Strips Strip MISCELLANEOUS DAILY pregabalin 200 mg capsule 1 cap PO BEDTIME Trulicity 1.5 mg/0.5 mL pen injector 0.5 ml subcut WE insulin aspart U-100 [Novolog Flexpen U-100 Insulin] 100 unit/mL (3 mL) insulin pen See Protocol subcut TIDAC Protocol: Insulin Correction Scale Less than or equal to 110 ---- Give (units): 0 111 to 150 Give (units): 0 151 to 200 Give (units): 2 201 to 250 Give (units): 4 251 to 300 Give (units): 6 301 to 350 Give (units): 8 Greater than 350 Give (units): 10 Call MD if Blood Glucose > : 350 lamotrigine 25 mg tablet 25 mg PO BEDTIME (DME) pen needle, diabetic [Comfort EZ Pen [place]] 31 gauge x 5/16 needle See Rx Instructions .ROUTE .MEDSUPPLY Qty: 200 11RF Rx Instructions: Use 1 pen needle 6 times a day nitroglycerin 0.4 mg tablet, sublingual 0.4 mg sublingual Q5M PRN (Reason: Chest Pain) sucralfate [Carafate] 100 mg/mL suspension 10 ml PO BID PRN (Reason: GERD) 15 Days Qty: 300 0RF prochlorperazine maleate [Compazine] 10 mg tablet 10 mg PO BID 5 Days Qty: 10 0RF acetaminophen-codeine 300-30 mg tablet 1 tab PO Q8H PRN (Reason: pain) 7 Days Qty: 21 0RF atorvastatin 80 mg tablet 80 mg PO DAILY 90 Days Qty: 90 1RF Rx Instructions: patient lost recent RX, please fill this as emergency RX this one time metoprolol tartrate 25 mg tablet 12.5 mg PO BID 90 Days Qty: 90 1RF Rx Instructions: Patient recently lost her Rx, please fill this rx as an emergency release. Thanks Brilinta 90 mg tablet 90 mg PO BID 90 Days Qty: 180 1RF Rx Instructions: Please fill Rx today, patient lost previous RX, fill as emergency this one time Referrals: [facility] [place] Group] Interventions: ED Discharge Assessment Last Done: 05/23/22 15:36 Discharge Date/Time: 05/23/22 15:37
== END 2022-05-23 15:37 | disposition home or self-care (01) ==
PROVIDERS: Emergency Provider Internal Medicine; PCP Internal Medicine
DX: M19.012 Primary osteoarthritis, left shoulder (principal); M25.512 Pain in left shoulder; E11.9 Type 2 diabetes mellitus without complications; I10 Essential (primary) hypertension; E78.5 Hyperlipidemia, unspecified; F17.200 Nicotine dependence, unspecified, uncomplicated
CPT/HCPCS: 73030; 99282; 99283

== ENCOUNTER 2022-06-11 09:37 | Outpatient (REF) | payer MEDICARE, MEDICAID, SELFPAY ==
[2022-06-01 12:12] VITALS: BP 100/64; BP 102/48; BP 110/70; BMI 25.5
--- NOTE | ~2022-06-11 | XR_ITS ---
EXAMINATION: XR CHEST CLINICAL INFORMATION: Cough COMPARISON: Chest radiographs 03/26/2022, 11/25/2021. TECHNIQUE: 2 views of the chest were obtained. FINDINGS: No airspace consolidation or ground-glass opacity or effusion. The costophrenic sulci are clear. The heart is normal in size. The hilar and mediastinal contours are unremarkable. No visible acute bony abnormality. XR/XR chest 2V IMPRESSION: Unremarkable examination.
== END 2022-06-11 09:38 | disposition home or self-care (01) ==
LOC: HO.XRAY 09:37
PROVIDERS: Absent Provider Internal Medicine; PCP Internal Medicine; Referring Provider Internal Medicine; Visit Provider Internal Medicine Cardiovascular Disease
DX: R10.13 Epigastric pain (principal); J45.909 Unspecified asthma, uncomplicated; J98.4 Other disorders of lung; J44.1 Chronic obstructive pulmonary disease with (acute) exacerbation; Z95.5 Presence of coronary angioplasty implant and graft
CPT/HCPCS: 71046; 99212

== ENCOUNTER → 2022-06-14 08:49 | Outpatient (BNVA) | payer MEDICARE, MEDICAID, SELFPAY ==
[2022-06-01 12:12] VITALS: BP 100/64; BP 102/48; BP 110/70; BMI 25.5
== END ==
PROVIDERS: PCP Internal Medicine; Visit Provider Nurse Practitioner Family
DX: Z12.11 Encounter for screening for malignant neoplasm of colon (principal); K59.09 Other constipation; K52.9 Noninfective gastroenteritis and colitis, unspecified; K21.9 Gastro-esophageal reflux disease without esophagitis; R10.13 Epigastric pain; R13.10 Dysphagia, unspecified; R10.11 Right upper quadrant pain; B15.9 Hepatitis A without hepatic coma; M05.9 Rheumatoid arthritis with rheumatoid factor, unspecified; M79.7 Fibromyalgia; Z86.19 Personal history of other infectious and parasitic diseases
CPT/HCPCS: 99212; Q3014

== ENCOUNTER 2022-06-15 13:26 | Day surgery (SDC) | payer MEDICARE, MEDICAID, SELFPAY ==
[2022-06-01 12:12] VITALS: BP 100/64; BP 102/48; BP 110/70; BMI 25.5
[2022-06-15 14:23] LABS: Glucose, Whole Blood 114 mg/dL (60-115)
--- NOTE | 2022-06-15 14:31 | HO.ANESPROP2 ---
[facility] Active Problems Active Problems: All Active Problems (Updated 06/14/22 @ 13:10 by Opal Edward NP) COPD exacerbation (Acute) Epigastric pain (Acute) Hyperkalemia (Acute) Hospital discharge follow-up (Acute) Colitis (Acute) Dysphagia (Acute) GERD (gastroesophageal reflux disease) (Acute) RUQ abdominal pain (Acute) CVA (cerebral vascular accident) (Acute) H/O cardiac catheterization (Acute) Stented coronary artery (Acute) Diabetes mellitus (Acute) NSTEMI (non-ST elevated myocardial infarction) (Acute) Elevated troponin (Acute) CVA (cerebral vascular accident) (Acute) Hypertensive urgency (Acute) Left arm weakness (Acute) Acute tension headache (Acute) Back pain (Acute) Neck pain (Acute) Migraine (Acute) Close exposure to 2019-nCoV (Acute) Breast pain, right (Acute) Rash (Acute) Raynauds disease (Acute) Varicose veins of right lower extremity with inflammation (Acute) Allergic rhinitis (Acute) Bloody diarrhea (Acute) PAD (peripheral artery disease) (Acute) Soft tissue injury of left wrist (Acute) Left radial head fracture (Acute) Hyperlipidemia LDL goal <100 (Acute) Diverticulosis of colon (Acute) Cough (Acute) Asthma (Acute) COPD (chronic obstructive pulmonary disease) (Acute) Vulvar abscess (Acute) COVID-19 (Acute) History of ischemic colitis (Acute) Chronic constipation (Acute) Colon cancer screening (Acute) History of Helicobacter pylori infection (Acute) Hepatitis A test positive (Acute) Breast cancer (Acute) Change in bowel habits (Acute) Abdominal bloating (Acute) Infiltrating ductal carcinoma of left breast, stage 2 (Acute) Insomnia (Acute) Dyslipidemia (Acute) Bipolar 1 disorder, depressed (Acute) Cough (Acute) Restrictive airway disease (Acute) Vitamin D deficiency (Acute) Osteoporosis (Acute) Breast cancer (Acute) Hyperparathyroidism (Acute) Thyroid nodule (Acute) T2DM (type 2 diabetes mellitus) (Acute) Fibromyalgia (Acute) Seropositive rheumatoid arthritis (Acute) Reactive airways dysfunction syndrome (Acute) Allergic rhinitis (Acute) Irritable bowel (Acute) Colitis (Acute) Anxiety (Acute) Allergic rhinitis (Acute) Bronchial asthma (Acute) Diabetes type 2, uncontrolled (Acute) Past Medical History Medical History Allergic rhinitis Allergic rhinitis Allergic rhinitis Anxiety Asthma Asthma Atherosclerotic cardiovascular disease Bipolar 1 disorder, depressed Bloody diarrhea Breast cancer Breast pain, right Bronchial asthma Colitis Colitis COPD (chronic obstructive pulmonary disease) COPD exacerbation Cough Depression Diabetes mellitus Diabetes type 2, uncontrolled Dyslipidemia Fibromyalgia Hospital discharge follow-up Hyperkalemia Hyperlipidemia LDL goal <100 Hyperparathyroidism Hypertension Hypothyroid Hypothyroid IDDM (insulin dependent diabetes mellitus) IDDM (insulin dependent diabetes mellitus) Infiltrating ductal carcinoma of left breast, stage 2 Insomnia Irritable bowel Osteoporosis PAD (peripheral artery disease) Rash Reactive airways dysfunction syndrome Restrictive airway disease Rheumatoid arthritis Seropositive rheumatoid arthritis T2DM (type 2 diabetes mellitus) Thyroid nodule Vitamin D deficiency Family History Family History Mother Diabetes HTN (hypertension) Uterus cancer Malignant tumor of head Breast cancer Father Diabetes HTN (hypertension) CVD (cardiovascular disease) Heart problem Maternal Aunt Breast cancer Brother Myocardial infarction S/P CABG x 4 Family/Other FH: mental illness Family/Other Lung cancer Other Mental health disorder Surgical History Surgical History H/O cardiac catheterization H/O: hysterectomy History of bunionectomy of both great toes History of colonoscopy History of esophagogastroduodenoscopy (EGD) History of lumpectomy of left breast History of pubovaginal sling History of tubal ligation History of Problems with Anesthesia: No Social History Social History Household Members: Family Household Members Other:: sister Housing: Apartment Are you a primary daycare director to a significant other at home: No Do you presently have visiting nurse or other home services: Yes (sister=senior staff accountant) Alcohol intake: never Patient Tobacco Use Status: Current everyday Tobacco user Tobacco use type: Cigarette Cigarette Packs Per Day: 1 Cigarettes Per Day: 1 Years Smoked: 50 +/- e-Cigarette/Vaping Use: Former Use Second Hand Smoke Exposure: No Use of substances other than those prescribed or required for medical reasons: No Advance Directives: Yes Advance Directives on File: Yes Advance Directives Date on File: 12/22/21 service: No Current occupational status: disabled Current occupation: rt handed Cognitive needs: No Hearing needs: No Vision needs: No Meds Allergies Allergy/AdvReac Type Severity Reaction Status Date / Time dog dander [DOGS] Allergy Intermediate Respiratory Verified 06/14/22 12:59 distress ibuprofen [Ibuprofen] Allergy Intermediate STOMACH Verified 06/14/22 12:59 UPSET, abdominal pain, nausea and vomiting shellfish derived Allergy Intermediate Hives Verified 06/14/22 12:59 etanercept [From Enbrel] AdvReac Intermediate Facial Verified 06/14/22 12:59 Swelling metformin AdvReac Intermediate diarrhea Verified 06/14/22 12:59 metronidazole [From FLAGYL] AdvReac Intermediate DIARRHEA Verified 06/14/22 12:59 prednisone AdvReac Intermediate hallucinations, Verified 06/14/22 12:59 higher than 20 Home Medications Medication Instructions Recorded Confirmed Last Taken Type dulaglutide 1.5 mg/0.5 mL 0.5 ml subcut WE 12/26/21 06/14/22 01/24/22 History subcutaneous pen injector (Trulicity) insulin aspart U-100 100 unit/mL See Protocol subcut TIDAC 12/26/21 06/14/22 01/29/22 History (3 mL) subcutaneous pen (Novolog Flexpen U-100 Insulin aspart) tizanidine 2 mg tablet 1 tab PO BEDTIME PRN muscle spasm 12/26/21 06/14/22 Unknown History nitroglycerin 0.4 mg sublingual 0.4 mg sublingual Q5M PRN Chest 01/03/22 06/14/22 Unknown History tablet Pain aspirin 81 mg tablet,delayed 81 mg PO DAILY 06/11/22 06/14/22 Unknown History release lifitegrast 5 % eye drops in a 1 drp ophthalmic (eye) BID 06/11/22 06/14/22 Unknown History dropperette (Xiidra) loteprednol etabonate 0.5 % eye ophthalmic (eye) BEDTIME 06/11/22 06/14/22 Unknown History ointment (Lotemax) Exam Exam Date and Time: June 15, 2022 1431 Pertinent Lab Results Pertinent Lab Results: Laboratory Tests 06/15/22 14:04 POC Glucose 114 Airway Mallampati Class: II TM Dist: >3cm Neck ROM: Full Loose/Missing/Broken Teeth: No Heart: RRR Lungs: CTA Assessment and Plan Assessment Anesthesia Assessment: Anesthesia Plan Discussed and Chart Reviewed Final Anesthetic Review History of Problems with Anesthesia: No NPO: Yes ASA Class: III Final Preanesthetic Review: Meds/Allgs Chart Reviewed, Consent Obtained/Reviewed and Anes Risks/Benef Reviewed Patient Risk: Intermediate Procedure Risk: Intermediate Anesthetic Plan Anesthetic Plan: MAC: Disposition: Standard PACU
[2022-06-15 14:32] VITALS: BP 123/85; PULSE 108; RESP 17; TEMP 36.6; O2SAT 96; BMI 23.8
--- NOTE | 2022-06-15 14:37 | MHC.SHP ---
Pre-Procedural Eval Section A Date of Service: 06/15/22 The patient is an INPATIENT: No Changes since office visit: Yes Patient answered all questions; No Cold of Flu in the past 2 weeks, No New Medical Problems and No Changes in Medication The History & Physical has been completed within 30 days and I have reviewed it.: Yes Section B Chief Complaint: abd pain Allergies: Allergies Allergy/AdvReac Type Severity Reaction Status Date / Time dog dander [DOGS] Allergy Intermediate Respiratory Verified 06/14/22 12:59 distress ibuprofen [Ibuprofen] Allergy Intermediate STOMACH Verified 06/14/22 12:59 UPSET, abdominal pain, nausea and vomiting shellfish derived Allergy Intermediate Hives Verified 06/14/22 12:59 etanercept [From Enbrel] AdvReac Intermediate Facial Verified 06/14/22 12:59 Swelling metformin AdvReac Intermediate diarrhea Verified 06/14/22 12:59 metronidazole [From FLAGYL] AdvReac Intermediate DIARRHEA Verified 06/14/22 12:59 prednisone AdvReac Intermediate hallucinations, Verified 06/14/22 12:59 higher than 20 Plan I have reviewed the history and physical and performed a pertinent physical examination on my patient. No changes have occurred unless specified.
--- NOTE | 2022-06-15 15:20 | P.BOP_ITS ---
Brief Operative Note Date of Service: 06/15/22 Pre-op diagnosis: Upper abdominal pain, nausea, weight loss Post-op diagnosis: other (Gastritis) Procedure: FLEXIBLE TRANSORAL UPPER GASTROINTESTINAL ENDOSCOPY WITH BIOPSIES Consent: Indications for the procedure and potential complications of bleeding, perforation, reaction to medications and missed diagnosis were discussed with the patient and informed consent was obtained. Instrument: Olympus GIF H 190 mid size upper endoscope Monitoring: Vital signs and clinical assessment, continuous EKG monitoring, Pulse oximetry, Carbon Dioxide monitoring and blood pressure monitoring were done throughout the procedure. Procedure: The patient was placed in the left lateral decubitis position and pre-procedure medications were administered and a bite block was placed. The endoscope was inserted into the mouth and advanced under direct vision to the third part of duodenum. A careful inspection was made as the upper endoscope was withdrawn including a retroflexed examination of the proximal stomach; Findings and interventions are described below. Findings: Larynx: Normal Esophagus: Tortuous esophagus with increased tertiary contractions without stricture or ring. GE junction at 36 cms. No esophagitis or Austin's. Stomach: Moderate diffuse gastric erythema - no ulcers were seen. Biopsies were obtained from gastric antrum and body. Grade 2 flap valve on retroflexed examination of the cardia. Duodenum: Normal bulb and descending duodenum. Biopsies were obtained from 3rd part of the duodenum to check for celiac sprue Intervention: Biopsies as noted above Impression and Post Procedure Diagnosis: Endoscopy Findings: ESOPHAGUS: Tortuous esophagus with increased tertiary contractions without stricture or ring. GE junction at 36 cms. No esophagitis or Austin's. STOMACH: Moderate diffuse gastric erythema - no ulcers were seen. Biopsies were obtained from gastric antrum and body. DUODENUM: Normal - biopsied to check for celiac sprue Plan: Await pathology results Further evaluation with a Duplex US to rule out small bowel ischemia [place] of Dicyclomine prn while awaiting further workup. Patient has an appointment on 09/13/22 in the GI Clinic with Ruth Roman M.D.. Above findings were reviewed with the patient and Gastritis handout was given in the discharge area Surgeon: Ruth Roman MD Anesthesia: MAC Was an Certified Flex Endoscope Reprocessor used for this Procedure?: Yes Certified Flex Endoscope Reprocessor: Radha Cotter Estimated blood loss (mL): 0 Pathology: other (A:Small bowel biopsies R/O celiac disease. B: Gastric antrum. C: Gastric body biopsies) Condition: stable Disposition: PACU
[2022-06-15 15:46] VITALS: BP 102/74; PULSE 105; RESP 18; TEMP 36.2; O2SAT 96
[2022-06-15 16:01] VITALS: BP 148/84; PULSE 102; RESP 16
[2022-06-15 16:16] VITALS: BP 163/82; PULSE 106; RESP 18; TEMP 36.1; O2SAT 98
--- NOTE | 2022-06-21 09:21 | W.PM.OPN ---
Operative Note Operative Note Date of Service: 06/15/22 Narrative: Pre-op diagnosis: Upper abdominal pain, nausea, weight loss Post-op diagnosis:?other (Gastritis) Procedure: FLEXIBLE TRANSORAL UPPER GASTROINTESTINAL ENDOSCOPY WITH BIOPSIES Consent:?Indications for the procedure and potential complications of bleeding, perforation, reaction to medications and missed diagnosis were discussed with the patient and informed consent was obtained. Instrument:?Olympus GIF H 190 mid size upper endoscope Monitoring: Vital signs and clinical assessment, continuous EKG monitoring, Pulse oximetry, Carbon Dioxide monitoring and blood pressure monitoring were done throughout the procedure. Procedure:?The patient was placed in the left lateral decubitis position and pre-procedure medications were administered and a bite block was placed. The endoscope was inserted into the mouth and advanced under direct vision to the third part of duodenum. A careful inspection was made as the upper endoscope was withdrawn including a retroflexed examination of the proximal stomach; Findings and interventions are described below. Findings: Larynx:? Normal Esophagus: Tortuous esophagus with increased tertiary contractions without stricture or ring.? GE junction at 36 cms. No esophagitis or Austin's. Stomach: Moderate diffuse gastric erythema - no ulcers were seen. Biopsies were obtained from gastric antrum and body. Grade 2 flap valve on retroflexed examination of the cardia. Duodenum: Normal bulb and descending duodenum. Biopsies were obtained from 3rd part of the duodenum to check for celiac sprue Intervention: Biopsies as noted above Impression and Post Procedure Diagnosis: Endoscopy Findings: ESOPHAGUS: Tortuous esophagus with increased tertiary contractions without stricture or ring.? GE junction at 36 cms. No esophagitis or Austin's. STOMACH: Moderate diffuse gastric erythema - no ulcers were seen. Biopsies were obtained from gastric antrum and body. DUODENUM: Normal - biopsied to check for celiac sprue Plan: Await pathology results Further evaluation with a Duplex US to rule out small bowel ischemia [place] of Dicyclomine prn while awaiting further workup. Patient has an appointment on 09/13/22 in the GI Clinic with Ruth Roman M.D.. Above findings were reviewed with the patient and Gastritis handout was given in the discharge area Surgeon: Ruth Roman MD Anesthesia:?MAC Was an Management Lead used for this Procedure?:?Yes Management Lead:?Radha Cotter Estimated blood loss (mL):?0 Pathology:?other (A:Small bowel biopsies R/O celiac disease.? B: Gastric antrum.? C: Gastric body biopsies) Condition:?stable Disposition:?PACU
== END 2022-06-15 16:26 | disposition home or self-care (01) ==
PROVIDERS: PCP Internal Medicine; Visit Provider Internal Medicine Gastroenterology
PROC: 0DJ08ZZ Inspection of Upper Intestinal Tract, Via Natural or Artificial Opening Endoscopic (ICD-10-PCS; CPT 43235; principal; 2022-06-15 14:50)
DX: K29.50 Unspecified chronic gastritis without bleeding (principal); B96.81 Helicobacter pylori [H. pylori] as the cause of diseases classified elsewhere; R63.4 Abnormal weight loss; K22.89 Other specified disease of esophagus; I25.10 Atherosclerotic heart disease of native coronary artery without angina pectoris; Z95.5 Presence of coronary angioplasty implant and graft; I25.2 Old myocardial infarction; J44.9 Chronic obstructive pulmonary disease, unspecified; C50.912 Malignant neoplasm of unspecified site of left female breast; M05.9 Rheumatoid arthritis with rheumatoid factor, unspecified; E11.9 Type 2 diabetes mellitus without complications; Z79.4 Long term (current) use of insulin; Z79.811 Long term (current) use of aromatase inhibitors; Z79.82 Long term (current) use of aspirin; Z79.899 Other long term (current) drug therapy; Z88.8 Allergy status to other drugs, medicaments and biological substances; Z98.890 Other specified postprocedural states; F17.210 Nicotine dependence, cigarettes, uncomplicated
CPT/HCPCS: 43239; 82947; 88305; 88342

== ENCOUNTER 2022-06-27 18:44 | Observation (INO) | payer MEDICARE, MEDICAID, SELFPAY ==
[2022-06-01 12:12] VITALS: BP 100/64; BP 102/48; BP 110/70; BMI 25.5
--- NOTE | ~2022-06-27 | CT_ITS ---
EXAMINATION: CT CHEST, ABDOMEN AND PELVIS WITHOUT CONTRAST CLINICAL INFORMATION: Cough, chest pain, shortness of breath R/0 pneumon RLQ, RUQ, right flank pain R/0 bili, appy, kidney COMPARISON: CT abdomen 01/22/2022, CT angiogram chest 12/25/2021 TECHNIQUE: Multidetector volumetric imaging was performed from the thoracic inlet through the pubic symphysis without IV contrast. Sagittal and coronal reformatted images were obtained on the technologist's workstation. This CT examination was performed using dose optimization techniques as appropriate, variously including the following: *Automated exposure control *Adjustment of mA and/or kV according to patient size (this includes techniques or standardized protocols for targeted exams where dose is matched to indication/reason for exam; i.e. extremities or head) *Use of iterative reconstruction technique DLP: 535 mGy-cm FINDINGS: CHEST: Lung: The lungs are clear without worrisome focal opacity or nodule. A calcified left upper lobe calcified granuloma is seen with some other tiny micronodules. Mediastinum: Calcified left hilar lymph nodes are seen consistent with a Gohn complex. Heart size normal. No mediastinal or hilar lymphadenopathy. Pericardium/Pleura: No significant effusion. No pleural mass or thickening. Chest Wall/Axilla: Unremarkable ABDOMEN/PELVIS: Peritoneal Space: No significant free air or free fluid identified. Liver, Gallbladder, Biliary Tree: The liver is normal in size and shape but has a heterogeneous decreased attenuation consistent with hepatic steatosis. Focal fatty sparing is present around the gallbladder. No focal hepatic lesion or biliary ductal dilatation is present. The gallbladder is unremarkable with no evidence of radiopaque gallstones, gallbladder wall thickening, or obvious pericholecystic inflammatory changes. Pancreas: Unremarkable Spleen: Unremarkable Adrenal Glands: Unremarkable Kidneys and Ureters: The kidneys are normal in size, shape, and attenuation. No hydronephrosis, hydroureter, or calculi seen. No perinephric stranding. Bladder: Empty and poorly evaluated Gastrointestinal Tract: The small and large bowel are unremarkable aside from some colonic diverticula without diverticulitis. The appendix is unremarkable. Abdominal Wall: No significant hernia is appreciated. Tiny periumbilical hernia seen containing only fat. Lymph Nodes: No retroperitoneal lymphadenopathy. Vascular: Calcific atherosclerotic changes present in the infrarenal aorta and iliac vessels without aneurysm.. The IVC appears unremarkable. PELVIC VISCERA: Surgically removed OSSEUS STRUCTURES: Mild degenerative changes are noted in the spine. No bony destructive lesions are seen. CT/CT abdomen pelvis wo con IMPRESSION: 1. No acute intrathoracic disease. Evidence of prior granulomatous disease with a Gohn complex. 2. Incidentally noted hepatic steatosis with normal-appearing appendix and no evidence of nephrolithiasis or obstructive uropathy. Fleischner guidelines were followed.
[2022-06-27 18:50] VITALS: BP 153/90; PULSE 142; RESP 24; TEMP 37.3; O2SAT 97; BMI 23.8
--- NOTE | 2022-06-27 18:56 | ECG_ITS ---
Test Reason : TACHY Blood Pressure : / mmHG Vent. Rate : 138 BPM Atrial Rate : 138 BPM P-R Int : 122 ms QRS Dur : 070 ms QT Int : 282 ms P-R-T Axes : 078 086 064 degrees QTc Int : 427 ms Sinus tachycardia Biatrial enlargement Nonspecific ST abnormality Abnormal ECG When compared with ECG of 26-MAR-2022 15:15, Vent. rate has increased BY 48 BPM Referred By: Mitra [place] Electronically Signed By:MICHELL MONTES
[2022-06-27] MEDS: Ondansetron ODT 4 MG TAB.RAPDIS TRANSLINGU (19:00)
[2022-06-27 19:12] LABS: MANUAL DIFF FLAG NO
[2022-06-27 19:13] LABS: Basophils Percent Auto 0.2 % (0-2); Eosinophils Absolute Auto 0.1 X10*3/uL (0.0-0.4); Eosinophils Percent Auto 0.3 % (0-4); Hematocrit 46.9 % (37.0-47.0); Hemoglobin 15.8 g/dl (12.0-16.0); Imm Gran Abs Auto 0.06 X10*3/uL (0.00-0.03); Imm Gran Pct Auto 0.4 % (0.0-0.4); Lymphocytes Absolute Auto 3.1 X10*3/uL (1.2-4.9); Lymphocytes Percent Auto 18.3 % (20-40); Mean Corpuscular HGB Conc 33.7 g/dl (31.0-35.0); Mean Corpuscular Hemoglobin 28.6 pg (27.0-33.0); Mean Platelet Volume 10.8 fL (9.4-12.3); Monocytes Absolute Auto 0.5 X10*3/uL (0.1-1.2); Monocytes Percent Auto 2.8 % (2-11); Neutrophils Absolute Auto 13.1 x10*3/uL (2.0-8.3); Platelet Count 310 X10*3/uL (160-400); Red Blood Count 5.52 X10*6/uL (4.20-5.50); Red Cell Distribution Width 13.4 % (11.0-16.0); White Blood Count 16.8 X10*3/uL (4.8-10.8)
[2022-06-27 19:29] LABS: COVID-19 Test Negative (Negative); IDNOW Serial# 16C4AD1C
[2022-06-27 19:30] LABS: Alanine Aminotransferase 26 U/L (0-31); Albumin Level 4.6 g/dL (3.5-5.0); Alkaline Phosphatase 72 U/L (39-117); Anion Gap 18 (12-20); Aspartate Amino Transferase 21 U/L (5-31); Bilirubin Total 0.3 mg/dL (0.0-1.0); Blood Urea Nitrogen 11 mg/dL (9-16); Calcium 10.2 mg/dL (8.4-10.2); Carbon Dioxide 24 mmol/L (22-29); Chloride 103 mmol/L (96-108); Creatinine Clr Calc Pharmacy 49.6; Estimated Glomerular Filt Rate > 60; Glucose Random 146 mg/dL (60-115); Potassium 4.5 mmol/L (3.3-5.1); Sodium 140 mmol/L (135-145); Total Protein 8.1 g/dL (6.5-8.0)
[2022-06-27 19:40] LABS: Lactic Acid 2.6 mmol/L (0.5-2.0)
[2022-06-27 20:28] VITALS: BP 140/90; PULSE 126; RESP 18; TEMP 37.1; O2SAT 97
--- NOTE | 2022-06-27 20:51 | ED_ITS ---
HPI - Abdominal Pain General Chief Complaint: Nausea/Vomiting/Diarrhea Stated Complaint: vomiting Time Seen by Provider: 06/27/22 18:56 Source: patient Mode of arrival: ambulatory Limitations: no limitations History of Present Illness HPI narrative: 62-year-old female who presents emergency department for evaluation of chest pain, abdominal pain, cough and shortness of breath. Patient states that she was at home at around 15:00 hours when she started to feel ill. She states she had a sudden onset of abdominal pain. She points to her right upper quadrant and states the pain did radiate to her right flank. She states the pain is been a constant squeezing sensation since onset. The pain is 10/10. She states this is her 1st episode of this type of pain. The patient had associated nausea and has vomited multiple times. She denies any blood in the emesis. She denied diarrhea. She states that she did have dark stool yesterday with no blood in the stool. She took a Tylenol with codeine 3 with no relief for pain. She has a history of ischemic colitis but states that this pain is different than her ischemic colitis pain. She is also complaining chest pain. She points to her right chest when asked to localize the pain. She states that the pain is a constant, sharp pain which is worse with coughing. She states she has also had a persistent, nonproductive cough x2 days. She states that she has had chills over the past 2 nights. She has also felt short of breath but she attributes this to her COPD. MD elicited complaint: abdominal pain and flank pain Pertinent past history: other (Ischemic colitis) Onset (ago): hour(s) (6) Pain Consistency: constant Location: RUQ and R flank Severity: severe Pain scale (0-10): 10 Quality: other (Squeezing) Radiation: none Migration to: no migration Exacerbating factors: nothing Relieving factors: nothing Associated symptoms: nausea, vomiting, chills and other (Chest pain, shortness of breath, 1 black stool yesterday) Treatments prior to arrival: other (Tylenol with codeine-without relief) Related Data Home Medications Medication Instructions Recorded Confirmed dulaglutide 1.5 mg/0.5 mL 0.5 ml subcut WE 12/26/21 06/14/22 subcutaneous pen injector (Trulicity) insulin aspart U-100 100 unit/mL See Protocol subcut TIDAC 12/26/21 06/14/22 (3 mL) subcutaneous pen (Novolog Flexpen U-100 Insulin aspart) tizanidine 2 mg tablet 1 tab PO BEDTIME PRN muscle spasm 12/26/21 06/14/22 nitroglycerin 0.4 mg sublingual 0.4 mg sublingual Q5M PRN Chest 01/03/22 06/14/22 tablet Pain aspirin 81 mg tablet,delayed 81 mg PO DAILY 06/11/22 06/14/22 release lifitegrast 5 % eye drops in a 1 drp ophthalmic (eye) BID 06/11/22 06/14/22 dropperette (Xiidra) loteprednol etabonate 0.5 % eye ophthalmic (eye) BEDTIME 06/11/22 06/14/22 ointment (Lotemax) Previous Rx's Medication Instructions Recorded letrozole 2.5 mg tablet 2.5 mg PO DAILY #90 tabs 11/08/21 losartan 25 mg tablet 25 mg PO DAILY 90 days #90 tabs 01/24/22 atorvastatin 80 mg tablet 80 mg PO DAILY 90 days #90 tabs 02/06/22 metoprolol tartrate 25 mg tablet 12.5 mg PO BID 90 days #90 tabs 02/06/22 ticagrelor 90 mg tablet (Brilinta) 90 mg PO BID 90 days #180 tabs 02/06/22 insulin degludec 100 unit/mL (3 46 unit (0.46 mL) subcut DAILY #15 04/06/22 mL) subcutaneous pen (Tresiba mL FlexTouch U-100 insulin) prochlorperazine maleate 10 mg 10 mg PO BID nausea and vomiting 5 04/30/22 tablet (Compazine) days #10 tabs ipratropium 0.5 mg-albuterol 3 mg 3 ml inhalation Q6H PRN wheezing 05/03/22 (2.5 mg base)/3 mL nebulization #180 mL soln abatacept 125 mg/mL subcutaneous 125 mg subcut QWEEK #4 mL 05/07/22 auto-injector (Orencia ClickJect) cyclobenzaprine 10 mg tablet 10 mg PO TID PRN muscle spasm #10 05/23/22 tabs oxycodone 5 mg tablet 5 mg PO Q8H PRN pain #5 tabs 05/23/22 acetaminophen 300 mg-codeine 30 mg 1 tab PO Q8H PRN pain 7 days #21 06/05/22 tablet tabs lancets 28 gauge (FreeStyle #100 ea 06/07/22 Lancets) pen needle, diabetic 31 gauge x #200 ea 06/07/22 5/16 (Comfort EZ Pen [place]) azithromycin 250 mg tablet See Rx Instructions PO .COMPLEX #6 06/11/22 tabs lamotrigine 25 mg tablet 25 mg PO BID 90 days #180 tabs 06/11/22 prednisone 20 mg tablet 20 mg PO BID 5 days #10 tabs 06/11/22 albuterol sulfate 90 mcg/actuation 2 puff PO Q4H PRN for wheezing 06/13/22 aerosol inhaler #8.5 ea pregabalin 200 mg capsule (Lyrica) 200 mg PO BEDTIME #30 caps 06/13/22 trazodone 100 mg tablet 100 mg PO BEDTIME 90 days #90 tabs 06/13/22 blood sugar diagnostic (FreeStyle #50 ea 06/14/22 Lite Strips) dicyclomine 10 mg capsule 10 mg PO TID PRN abdominal pain 30 06/15/22 days #30 caps pantoprazole 40 mg tablet,delayed 40 mg PO BID 90 days #180 tabs 06/27/22 release sucralfate 100 mg/mL oral 10 ml PO BID PRN GERD 15 days #300 06/27/22 suspension (Carafate) mL Allergies Allergy/AdvReac Type Severity Reaction Status Date / Time dog dander [DOGS] Allergy Intermediate Respiratory Verified 06/27/22 18:50 distress ibuprofen [Ibuprofen] Allergy Intermediate STOMACH Verified 06/27/22 18:50 UPSET, abdominal pain, nausea and vomiting shellfish derived Allergy Intermediate Hives Verified 06/27/22 18:50 etanercept [From Enbrel] AdvReac Intermediate Facial Verified 06/27/22 18:50 Swelling metformin AdvReac Intermediate diarrhea Verified 06/27/22 18:50 metronidazole [From FLAGYL] AdvReac Intermediate DIARRHEA Verified 06/27/22 18:50 prednisone AdvReac Intermediate hallucinations, Verified 06/27/22 18:50 higher than 20 Review of Systems Review of Systems Yes all other systems are reviewed and are negative [facility] Past Medical History [facility] Narrative: Social history: The patient smokes 1 cigarette per day. She denies alcohol use. She denies drug use. Medical History Allergic rhinitis Allergic rhinitis Allergic rhinitis Anxiety Asthma Asthma Atherosclerotic cardiovascular disease Bipolar 1 disorder, depressed Bloody diarrhea Breast cancer Breast pain, right Bronchial asthma Colitis Colitis COPD (chronic obstructive pulmonary disease) COPD exacerbation Cough Depression Diabetes mellitus Diabetes type 2, uncontrolled Dyslipidemia Fibromyalgia Hospital discharge follow-up Hyperkalemia Hyperlipidemia LDL goal <100 Hyperparathyroidism Hypertension Hypothyroid Hypothyroid IDDM (insulin dependent diabetes mellitus) IDDM (insulin dependent diabetes mellitus) Infiltrating ductal carcinoma of left breast, stage 2 Insomnia Irritable bowel Osteoporosis PAD (peripheral artery disease) Rash Reactive airways dysfunction syndrome Restrictive airway disease Rheumatoid arthritis Seropositive rheumatoid arthritis T2DM (type 2 diabetes mellitus) Thyroid nodule Vitamin D deficiency Surgical History H/O cardiac catheterization H/O: hysterectomy History of bunionectomy of both great toes History of colonoscopy History of esophagogastroduodenoscopy (EGD) History of lumpectomy of left breast History of pubovaginal sling History of tubal ligation Family History Family History Mother Diabetes HTN (hypertension) Uterus cancer Malignant tumor of head Breast cancer Father Diabetes HTN (hypertension) CVD (cardiovascular disease) Heart problem Maternal Aunt Breast cancer Brother Myocardial infarction S/P CABG x 4 Family/Other FH: mental illness Family/Other Lung cancer Other Mental health disorder Social History Social History Household Members: Family Household Members Other:: sister Housing: Apartment Are you a primary senior caregiver to a significant other at home: No Do you presently have visiting nurse or other home services: Yes (sister=production consultant) Alcohol intake: never Patient Tobacco Use Status: Current everyday Tobacco user Tobacco use type: Cigarette Cigarette Packs Per Day: 1 Cigarettes Per Day: 1 Years Smoked: 50 +/- e-Cigarette/Vaping Use: Former Use Second Hand Smoke Exposure: No Advance Directives: Yes Advance Directives on File: Yes Advance Directives Date on File: 12/22/21 service: No Current occupational status: disabled Current occupation: rt handed Cognitive needs: No Hearing needs: No Vision needs: No Physical Exam ED Vital Signs: Vital Signs - 24 hr 06/27/22 18:50 06/27/22 20:28 06/27/22 22:00 Temperature 99.1 F 98.7 F Pulse Rate 142 H 126 H Respiratory Rate 24 H 18 16 Blood Pressure 153/90 H 140/90 H Pulse Oximetry 97 97 Oxygen Delivery Method Room Air Room Air BMI result Body Mass Index 23.8 Const Other: Awake, alert, female patient pleasant, cooperative she does appear to be in distress secondary to her abdominal pain HENMT Head: Yes normal to inspection, Yes normocephalic and Yes atraumatic Ears: external ears normal General nose exam: Normal external nose present Face and sinus: Yes normal facial exam Mouth: Normal oral and palatal mucosa present Throat: Yes posterior oropharynx normal Eyes General: appearance normal, both eyes and all related structures Pupils: Equal, round and reactive pupils present Neck Neck: Yes normal visual inspection, Yes no lymphadenopathy, Yes trachea midline and Yes supple Chest Chest palpation & inspection: normal inspection of the chest and normal palpation of entire chest wall Resp Other: Rales and rhonchi at the right base, breath sounds are symmetric, no wheezing Cardio Rate: regular rate Rhythm: regular rhythm Heart sounds: S1 normal heart sound present, S2 normal heart sound present and no murmurs GI Inspection: Yes normal to inspection Palpation (GI): Soft to palpation, Tenderness to palpation present (GI) in the RLQ ([id number]) and in the RUQ (Moderate) and no guarding Auscultation: normal bowel sounds General: Yes CVA tenderness on the right (Moderate) Back/Spine/Pelvis Back: CVA tenderness Skin General skin exam: no rashes or lesions noted Neuro Cranial nerves: Yes CN's II-XII intact bilaterally and Yes Equal, round and reactive pupils present Cognition (Neuro): normal cognition Motor exam (neuro): 5/5 motor strength present throughout Extrem General: Yes normal to inspection Psych Appearance: grossly normal Speech and movement: Normal speech and movement present Affect: normal affect Attitude: cooperative Thought process: Normal thought process present Thought content: Normal thought content present Course Course Course Narrative: 62- year-old female who presents emergency department for evaluation of sudden onset right-sided abdominal and flank pain which began at 15:00 hours is been constant since onset, the pain is been 10/10 since onset as well. Patient had associated nausea and vomiting. Patient has also had chills over the past 2 days with a nonproductive cough, chest shortness of breath. Patient does have a history of ischemic colitis but she states that this pain is different than her ischemic colitis pain. Initial vital signs revealed an elevated blood pressure of 153/90, pulse was 142 and respiratory was 24. Repeat vital signs revealed a blood pressure 140/90, pulse of 126 respiratory rate of 18. Her examination did reveal significant right upper quadrant right lower quadrant and right flank tenderness. Patient's lung exam also revealed right-sided rales and rhonchi. Laboratory evaluation was ordered at triage. 2109: Laboratory evaluation: WBC elevated 16,800 with 78% neutrophils 18% lymphocytes. Glucose elevated 146. Lactic acid elevated 2.6 with BP 1 0.7. Li pase was normal 41. COVID-19 was negative. Twelve EKG revealed a sinus tachycardia otherwise was unremarkable. I ordered CT scan of the abdomen pelvis and CT scan of the chest without contrast. Patient was ordered to get Dilaudid 1 mg IV for her pain and Zofran 4 mg IV for nausea and vomiting. I also ordered Zosyn 4.5 g IV. 2003: CT scan of the chest abdomen pelvis did not reveal a clear cause for the patient's pain. Patient only got minimal improvement of her pain with the IV Dilaudid is was ordered to get a 2nd dose of Dilaudid 1 mg IV. Patient's repeat abdominal exam revealed moderate abdominal tenderness in her lower abdomen as well as her right upper abdomen. The patient's pain and tenderness seems be out of portion to her findings therefore I am concerned that she might have ischemic colitis. I will discuss the patient's presentation with the covering hospitalist. 2241: I did discuss the patient with Dr. Martinez and the patient will be admitted to the hospital service for intractable abdominal pain and further evaluation. MDM - Abdominal Pain Lab Data Result diagrams: 06/27/22 19:06 06/27/22 19:06 Labs: Lab Results 06/27/22 06/27/22 06/27/22 Range/Units 19:06 19:06 19:06 WBC 16.8 H (4.8-10.8) X10*3/uL RBC 5.52 H (4.20-5.50) X10*6/uL Hgb 15.8 (12.0-16.0) g/dl Hct 46.9 (37.0-47.0) % MCV 85.0 (80.0-98.0) fL MCH 28.6 (27.0-33.0) pg MCHC 33.7 (31.0-35.0) g/dl RDW 13.4 (11.0-16.0) % Plt Count 310 (160-400) X10*3/uL MPV 10.8 (9.4-12.3) fL Immature Gran % (Auto) 0.4 (0.0-0.4) % Neut % (Auto) 78.0 H (45-73) % Lymph % (Auto) 18.3 L (20-40) % [place] % (Auto) 2.8 (2-11) % Eos % (Auto) 0.3 (0-4) % Baso % (Auto) 0.2 (0-2) % Lymph # (Auto) 3.1 (1.2-4.9) X10*3/uL [place] # (Auto) 0.5 (0.1-1.2) X10*3/uL Eos # (Auto) 0.1 (0.0-0.4) X10*3/uL Baso # (Auto) 0.0 (0.0-0.2) X10*3/uL Abs Immat Gran (auto) 0.06 H (0.00-0.03) X10*3/uL Absolute Neuts (auto) 13.1 H (2.0-8.3) x10*3/uL Absolute Nucleated RBC 0.000 (0.0-0.012) X10*3/uL Nucleated RBC % (auto) 0.0 (0.0-0.2) /100WBC Sodium 140 (135-145) mmol/L Potassium 4.5 (3.3-5.1) mmol/L Chloride 103 (96-108) mmol/L Carbon Dioxide 24 (22-29) mmol/L Anion Gap 18 (12-20) BUN 11 (9-16) mg/dL Creatinine 0.86 (0.5-1.4) mg/dL Estim Creat Clear Calc 49.6 Estimated GFR > 60 Random Glucose 146 H (60-115) mg/dL Lactic Acid (0.5-2.0) mmol/L Lactic Acid F/U @ 2Hr (0.5-2.0) mmol/L Calcium 10.2 D (8.4-10.2) mg/dL Total Bilirubin 0.3 (0.0-1.0) mg/dL AST 21 (5-31) U/L ALT 26 (0-31) U/L Alkaline Phosphatase 72 (39-117) U/L Total Protein 8.1 H (6.5-8.0) g/dL Albumin 4.6 (3.5-5.0) g/dL Lipase 41 (8-78) U/L COVID-19 ([facility]) Negative (Negative) COVID-19 Clin Com See Note 06/27/22 06/27/22 Range/Units 19:06 21:32 WBC (4.8-10.8) X10*3/uL RBC (4.20-5.50) X10*6/uL Hgb (12.0-16.0) g/dl Hct (37.0-47.0) % MCV (80.0-98.0) fL MCH (27.0-33.0) pg MCHC (31.0-35.0) g/dl RDW (11.0-16.0) % Plt Count (160-400) X10*3/uL MPV (9.4-12.3) fL Immature Gran % (Auto) (0.0-0.4) % Neut % (Auto) (45-73) % Lymph % (Auto) (20-40) % [place] % (Auto) (2-11) % Eos % (Auto) (0-4) % Baso % (Auto) (0-2) % Lymph # (Auto) (1.2-4.9) X10*3/uL [place] # (Auto) (0.1-1.2) X10*3/uL Eos # (Auto) (0.0-0.4) X10*3/uL Baso # (Auto) (0.0-0.2) X10*3/uL Abs Immat Gran (auto) (0.00-0.03) X10*3/uL Absolute Neuts (auto) (2.0-8.3) x10*3/uL Absolute Nucleated RBC (0.0-0.012) X10*3/uL Nucleated RBC % (auto) (0.0-0.2) /100WBC Sodium (135-145) mmol/L Potassium (3.3-5.1) mmol/L Chloride (96-108) mmol/L Carbon Dioxide (22-29) mmol/L Anion Gap (12-20) BUN (9-16) mg/dL Creatinine (0.5-1.4) mg/dL Estim Creat Clear Calc Estimated GFR Random Glucose (60-115) mg/dL Lactic Acid 2.6 H* (0.5-2.0) mmol/L Lactic Acid F/U @ 2Hr 1.7 (0.5-2.0) mmol/L Calcium (8.4-10.2) mg/dL Total Bilirubin (0.0-1.0) mg/dL AST (5-31) U/L ALT (0-31) U/L Alkaline Phosphatase (39-117) U/L Total Protein (6.5-8.0) g/dL Albumin (3.5-5.0) g/dL Lipase (8-78) U/L COVID-19 ([facility]) (Negative) COVID-19 Clin Com Discharge Plan Discharge Patient Disposition: Admitted As Inpatient Prescriptions: No Action losartan 25 mg tablet 25 mg PO DAILY 90 Days Qty: 90 2RF Tresiba FlexTouch U-100 100 unit/mL (3 mL) insulin pen 46 unit subcut DAILY Qty: 15 5RF ipratropium-albuterol 0.5 mg-3 mg(2.5 mg base)/3 mL solution for nebulization 3 ml inhalation Q6H PRN (Reason: wheezing) Qty: 180 2RF Orencia ClickJect 125 mg/mL auto-injector 125 mg subcut QWEEK Qty: 4 2RF acetaminophen-codeine 300-30 mg tablet 1 tab PO Q8H PRN (Reason: pain) 7 Days Qty: 21 0RF (DME) pen needle, diabetic [Comfort EZ Pen [place]] 31 gauge x 5/16 needle See Rx Instructions .ROUTE .MEDSUPPLY Qty: 200 11RF Rx Instructions: Use 1 pen needle 6 times a day (DME) lancets [FreeStyle Lancets] 28 gauge misc See Rx Instructions .Route Qty: 100 3RF Rx Instructions: Use 1 lancet once a day prednisone 20 mg tablet 20 mg PO BID 5 Days Qty: 10 0RF azithromycin 250 mg tablet See Rx Instructions PO .COMPLEX Qty: 6 0RF Rx Instructions: For 250 mg dose pack: take 500 mg today (day 1), then 250 mg for 4 days (days 2-5) PO lamotrigine 25 mg tablet 25 mg PO BID 90 Days Qty: 180 1RF albuterol sulfate 90 mcg/actuation HFA aerosol inhaler 2 puff PO Q4H PRN (Reason: for wheezing) Qty: 8.5 2RF pregabalin [Lyrica] 200 mg capsule 200 mg PO BEDTIME Qty: 30 3RF trazodone 100 mg tablet 100 mg PO BEDTIME 90 Days Qty: 90 0RF (DME) FreeStyle Lite Strips Strip MISCELLANEOUS DAILY Qty: 50 1RF Rx Instructions: Use 1 test strip once a day dicyclomine 10 mg capsule 10 mg PO TID PRN (Reason: abdominal pain) 30 Days Qty: 30 1RF pantoprazole 40 mg tablet,delayed release (DR/EC) 40 mg PO BID 90 Days Qty: 180 0RF sucralfate [Carafate] 100 mg/mL suspension 10 ml PO BID PRN (Reason: GERD) 15 Days Qty: 300 0RF letrozole 2.5 mg Tablet 2.5 mg PO DAILY Qty: 90 4RF aspirin 81 mg tablet,delayed release (DR/EC) 81 mg PO DAILY tizanidine 2 mg tablet 1 tab PO BEDTIME PRN (Reason: muscle spasm) Trulicity 1.5 mg/0.5 mL pen injector 0.5 ml subcut WE insulin aspart U-100 [Novolog Flexpen U-100 Insulin] 100 unit/mL (3 mL) insulin pen See Protocol subcut TIDAC Protocol: Insulin Correction Scale Less than or equal to 110 ---- Give (units): 0 111 to 150 Give (units): 0 151 to 200 Give (units): 2 201 to 250 Give (units): 4 251 to 300 Give (units): 6 301 to 350 Give (units): 8 Greater than 350 Give (units): 10 Call MD if Blood Glucose > : 350 cyclobenzaprine 10 mg tablet 10 mg PO TID PRN (Reason: muscle spasm) Qty: 10 0RF oxycodone 5 mg tablet 5 mg PO Q8H PRN (Reason: pain) Qty: 5 0RF Rx Instructions: Partial Fill upon patient request. nitroglycerin 0.4 mg tablet, sublingual 0.4 mg sublingual Q5M PRN (Reason: Chest Pain) prochlorperazine maleate [Compazine] 10 mg tablet 10 mg PO BID 5 Days Qty: 10 0RF atorvastatin 80 mg tablet 80 mg PO DAILY 90 Days Qty: 90 1RF Rx Instructions: patient lost recent RX, please fill this as emergency RX this one time metoprolol tartrate 25 mg tablet 12.5 mg PO BID 90 Days Qty: 90 1RF Rx Instructions: Patient recently lost her Rx, please fill this rx as an emergency release. Thanks Brilinta 90 mg tablet 90 mg PO BID 90 Days Qty: 180 1RF Rx Instructions: Please fill Rx today, patient lost previous RX, fill as emergency this one time Lotemax 0.5 % ointment ophthalmic (eye) BEDTIME Xiidra 5 % dropperette 1 drp ophthalmic (eye) BID
[2022-06-27 21:10] LABS: Reflex Lactate? Lactic Acid Added
[2022-06-27 21:29] LABS: Lipase 41 U/L (8-78)
[2022-06-27 21:48] LABS: ~Lactic Acid-LAB USE ONLY 1.7 mmol/L (0.5-2.0)
[2022-06-27] MEDS: 0.9 % Sodium Chloride 1,551.3 ML 1551.3 ML IV (21:55)
[2022-06-27 22:00] VITALS: RESP 16
[2022-06-27] MEDS: HYDROmorphone HCl 1 MG/ML SYRINGE IVPUSH ×2 (22:00→23:48)
[2022-06-27] MEDS: ondansetron HCL 4 MG/2 ML VIAL IVPUSH (22:01)
[2022-06-27] MEDS: Piperacillin Sodium/Tazobactam 4.5 GM in 0.9 % Sodium Chloride 100 ML IV (22:09)
[2022-06-27 22:35] VITALS: BP 131/80; PULSE 98; RESP 16; TEMP 36.8; O2SAT 95
--- NOTE | 2022-06-27 22:36 | PM.IMHP ---
History of Present Illness Date of Service: 06/27/22 Chief Complaint: abd pain 62-year-old female with past medical history of COPD, diabetes, hyperthyroidism, history of breast cancer, fibromyalgia, IBS, anxiety, asthma, bipolar disorder, hyperlipidemia, HTN, PAD, among others who presents to the hospital with complaints of severe abdominal pain. Patient reports the abdominal pain is diffuse, but worse in the right upper and right lower quadrant, nonradiating, 10/10, constant, stabbing pain sudden onset, associated with 4 episodes of vomiting. Reports constipation. She also complaining of stabbing epigastric pain, radiating up the chest, she has also had a dry cough for 3 days, she reports no fever no chills, reports an episode of ischemic colitis loss here, denies any palpitations, no shortness of breath, no urinary symptoms and no lower extremity edema. On arrival to the ED patient hemodynamically stable with heart rate in the 140s, respiratory rate of 24, blood pressure 153/90 Labs are significant for WBC count of 16.8, hemoglobin of 15.8, hematocrit 46.9, lactic acid of 2.6 at resolved after IV fluids, LDH of 230, lipase of 41, UA negative, troponin negative, Chest abdominal pelvic CT shows no acute intrathoracic disease, there is evidence of prior granulomatosis disease with Gohn complex Incidentally noted hepatic steatosis with normal appearing appendix and no evidence of nephrolithiasis or obstructive uropathy Given the intractable abdominal pain patient will be admitted for further management Review of Systems Review of Systems: Yes all other systems are reviewed and are negative [facility] Medical History Allergic rhinitis Allergic rhinitis Allergic rhinitis Anxiety Asthma Asthma Atherosclerotic cardiovascular disease Bipolar 1 disorder, depressed Bloody diarrhea Breast cancer Breast pain, right Bronchial asthma Colitis Colitis COPD (chronic obstructive pulmonary disease) COPD exacerbation Cough Depression Diabetes mellitus Diabetes type 2, uncontrolled Dyslipidemia Fibromyalgia Hospital discharge follow-up Hyperkalemia Hyperlipidemia LDL goal <100 Hyperparathyroidism Hypertension Hypothyroid Hypothyroid IDDM (insulin dependent diabetes mellitus) IDDM (insulin dependent diabetes mellitus) Infiltrating ductal carcinoma of left breast, stage 2 Insomnia Irritable bowel Osteoporosis PAD (peripheral artery disease) Rash Reactive airways dysfunction syndrome Restrictive airway disease Rheumatoid arthritis Seropositive rheumatoid arthritis T2DM (type 2 diabetes mellitus) Thyroid nodule Vitamin D deficiency Family History Mother Diabetes HTN (hypertension) Uterus cancer Malignant tumor of head Breast cancer Father Diabetes HTN (hypertension) CVD (cardiovascular disease) Heart problem Maternal Aunt Breast cancer Brother Myocardial infarction S/P CABG x 4 Family/Other FH: mental illness Family/Other Lung cancer Other Mental health disorder Surgical History H/O cardiac catheterization H/O: hysterectomy History of bunionectomy of both great toes History of colonoscopy History of esophagogastroduodenoscopy (EGD) History of lumpectomy of left breast History of pubovaginal sling History of tubal ligation Social History Household Members: Family Household Members Other:: sister Housing: Apartment Are you a primary health care administrator to a significant other at home: No Do you presently have visiting nurse or other home services: Yes (sister=aviation electronics technician) Alcohol intake: never Patient Tobacco Use Status: Current everyday Tobacco user Tobacco use type: Cigarette Cigarette Packs Per Day: 1 Cigarettes Per Day: 1 Years Smoked: 50 +/- e-Cigarette/Vaping Use: Former Use Second Hand Smoke Exposure: No Advance Directives: Yes Advance Directives on File: Yes Advance Directives Date on File: 12/22/21 service: No Current occupational status: disabled Current occupation: rt handed Cognitive needs: No Hearing needs: No Vision needs: No Meds Allergies Allergy/AdvReac Type Severity Reaction Status Date / Time dog dander [DOGS] Allergy Intermediate Respiratory Verified 06/27/22 18:50 distress ibuprofen [Ibuprofen] Allergy Intermediate STOMACH Verified 06/27/22 18:50 UPSET, abdominal pain, nausea and vomiting shellfish derived Allergy Intermediate Hives Verified 06/27/22 18:50 etanercept [From Enbrel] AdvReac Intermediate Facial Verified 06/27/22 18:50 Swelling metformin AdvReac Intermediate diarrhea Verified 06/27/22 18:50 metronidazole [From FLAGYL] AdvReac Intermediate DIARRHEA Verified 06/27/22 18:50 prednisone AdvReac Intermediate hallucinations, Verified 06/27/22 18:50 higher than 20 Home Medications Medication Instructions Recorded Confirmed Last Taken Type dulaglutide 1.5 mg/0.5 mL 0.5 ml subcut WE 12/26/21 06/14/22 01/24/22 History subcutaneous pen injector (Trulicity) insulin aspart U-100 100 unit/mL See Protocol subcut TIDAC 12/26/21 06/14/22 01/29/22 History (3 mL) subcutaneous pen (Novolog Flexpen U-100 Insulin aspart) tizanidine 2 mg tablet 1 tab PO BEDTIME PRN muscle spasm 12/26/21 06/14/22 Unknown History nitroglycerin 0.4 mg sublingual 0.4 mg sublingual Q5M PRN Chest 01/03/22 06/14/22 Unknown History tablet Pain aspirin 81 mg tablet,delayed 81 mg PO DAILY 06/11/22 06/14/22 Unknown History release lifitegrast 5 % eye drops in a 1 drp ophthalmic (eye) BID 06/11/22 06/14/22 Unknown History dropperette (Xiidra) loteprednol etabonate 0.5 % eye ophthalmic (eye) BEDTIME 06/11/22 06/14/22 Unknown History ointment (Lotemax) Physical Exam Vital Signs and Narrative: Vital Signs: Last Vital Signs Temp 98.7 F 06/27/22 20:28 Pulse 126 H 06/27/22 20:28 Resp 16 06/27/22 22:00 BP 140/90 H 06/27/22 20:28 Pulse Ox 97 06/27/22 20:28 O2 Del Method 06/27/22 20:28 BMI result Body Mass Index 23.8 Const: General: cooperative and no acute distress Orientation/consciousness: patient oriented x3 Eyes: General: appearance normal, both eyes and all related structures Resp: Effort & Inspection: normal respiratory effort Auscultation: clear to auscultation bilaterally Cardio: Rate: regular rate Rhythm: regular rhythm GI: Other: Abdomen is few diffusely tender, no rebound or guarding Palpation (GI): Soft to palpation Auscultation: normal bowel sounds Skin: General skin exam: no rashes or lesions noted Neuro: General: patient oriented x3 Cognition (Neuro): normal cognition Extrem: General: Yes normal to inspection and Yes no pedal edema Results Labs CBC and Chem 7: 06/28/22 04:55 06/28/22 04:55 Labs: Laboratory Results - last 24 hr 06/27/22 06/27/22 06/27/22 19:06 19:06 19:06 MCV 85.0 MCH 28.6 MCHC 33.7 RDW 13.4 Plt Count 310 MPV 10.8 Immature Gran % (Auto) 0.4 Neut % (Auto) 78.0 H Lymph % (Auto) 18.3 L [place] % (Auto) 2.8 Eos % (Auto) 0.3 Baso % (Auto) 0.2 Lymph # (Auto) 3.1 [place] # (Auto) 0.5 Eos # (Auto) 0.1 Baso # (Auto) 0.0 Abs Immat Gran (auto) 0.06 H Absolute Neuts (auto) 13.1 H Absolute Nucleated RBC 0.000 Nucleated RBC % (auto) 0.0 Anion Gap 18 Estim Creat Clear Calc 49.6 Estimated GFR > 60 Random Glucose 146 H Lactic Acid Lactic Acid F/U @ 2Hr Calcium 10.2 D Total Bilirubin 0.3 AST 21 ALT 26 Alkaline Phosphatase 72 Total Protein 8.1 H Albumin 4.6 Lipase 41 COVID-19 ([facility]ISS) Negative COVID-19 Clin Com See Note 06/27/22 06/27/22 19:06 21:32 MCV MCH MCHC RDW Plt Count MPV Immature Gran % (Auto) Neut % (Auto) Lymph % (Auto) [place] % (Auto) Eos % (Auto) Baso % (Auto) Lymph # (Auto) [place] # (Auto) Eos # (Auto) Baso # (Auto) Abs Immat Gran (auto) Absolute Neuts (auto) Absolute Nucleated RBC Nucleated RBC % (auto) Anion Gap Estim Creat Clear Calc Estimated GFR Random Glucose Lactic Acid 2.6 H* Lactic Acid F/U @ 2Hr 1.7 Calcium Total Bilirubin AST ALT Alkaline Phosphatase Total Protein Albumin Lipase COVID-19 ([facility]ISS) COVID-19 Clin Com Imaging Radiologist's Impressions: Impressions Abdomen/Pelvis CT 06/27/22 21:11 IMPRESSION: 1. No acute intrathoracic disease. Evidence of prior granulomatous disease with a Gohn complex. 2. Incidentally noted hepatic steatosis with normal-appearing appendix and no evidence of nephrolithiasis or obstructive uropathy. Fleischner guidelines were followed. Chest CT 06/27/22 21:11 IMPRESSION: 1. No acute intrathoracic disease. Evidence of prior granulomatous disease with a Gohn complex. 2. Incidentally noted hepatic steatosis with normal-appearing appendix and no evidence of nephrolithiasis or obstructive uropathy. Fleischner guidelines were followed. Assessment and Plan (1) Abdominal pain: Qualifiers: Abdominal location: lower abdomen, unspecified Qualified Code(s): R10.30 - Lower abdominal pain, unspecified Status: Acute (2) Elevated LDH: Status: Acute (3) Epigastric pain: Status: Acute Plan This is a 62-year-old female with extensive past medical history presents to the hospital with complaints of abdominal pain, vomiting # abdominal pain/vomiting - possibly secondary to ischemic colitis as she has elevated LDH, CT abdomen negative and shows no evidence of colitis - patient received multiple rounds of pain control medication as well as antiemetics with minimal relief - will admit for need for pain control, supportive measures, antiemetics - consider repeat CT/GI consult if patient continues to have persistent symptoms, - IV fluids # epigastric pain - this secondary to gastritis - will start on omeprazole - troponin negative # diabetes - continue home insulin - low-dose sliding scale insulin - diabetic diet # hypertension - stable - continue home medications once reviewed by pharmacy # COPD/asthma - no acute symptoms - continue home inhalers DVT prophylaxis: Lovenox Patient's med rec is still pending, patient med rec is still pending as patient is on extensive list of medication pending pharmacy review Quality Stroke Does the patient have a stroke diagnosis?: No VTE Prior VTE?: No VTE Risk Level:: Medical - moderate - high VTE Device Contraindication: Treatment Not Indicated VTE Drug Contraindication: N/A - Med Ordered
[2022-06-27 23:07] LABS: Lactate Dehydrogenase 230 U/L (122-220)
[2022-06-27 23:17] LABS: Troponin-I High Sensitivity 4.7 ng/L (<3.5-17.0)
[2022-06-27 23:36] VITALS: BP 133/79; PULSE 100; RESP 22
[2022-06-27 23:37] LABS: Appearance Urine CLEAR; Color Urine YELLOW; Glucose Urine UA NEG (NEG); Leukocyte Esterase Urine NEG (NEG); Nitrite Urine NEG (NEG); PH 7.5 (5.0-8.0); Specific Gravity - Urine 1.015 (1.005-1.025); Urine Blood NEG (NEG); Urine Ketones NEG (NEG); Urine Protein NEG (NEG-TRACE)
[2022-06-27 23:48] VITALS: RESP 16
[2022-06-27] MEDS: Enoxaparin Sodium 40 MG/0.4 ML SYRINGE SUBCUT (23:48)
[2022-06-27] MEDS: 0.9 % Sodium Chloride 1,000 ML 999 ML IV (23:52)
[2022-06-27 23:59] LABS: Troponin-I High Sensitivity 7.1 ng/L (<3.5-17.0)
[2022-06-28] VITALS (12 sets, daily range): BP systolic 96–138; BP diastolic 63–81; PULSE 78–101; RESP 13–20; TEMP 36.4–36.8; O2SAT 18–98
--- NOTE | 2022-06-28 02:01 | PC.NURSE ---
pt stated she was unable to void pt was bladder scanned for 368cc and still unable to void. provider made aware.
--- NOTE | 2022-06-28 03:56 | PC.NURSE ---
verbal order to straight cath pt for unable to void and abd pain. per hospitalist.
--- NOTE | 2022-06-28 04:06 | PC.NURSE ---
pt was st cath for 400cc and states her abd was cramping on her. waiting on if cramping resolves after st cath.
--- NOTE | 2022-06-28 05:25 | PC.NURSE ---
pt ambulated to bathroom with a steady gait. pt still has lower mid abd pain upon waking.
[2022-06-28] MEDS: oxyCODONE HCl Immed Release 5 MG TABLET PO ×3 (05:30→20:46)
[2022-06-28 05:38] LABS: Basophils Percent Auto 0.2 % (0-2); Eosinophils Absolute Auto 0.1 X10*3/uL (0.0-0.4); Eosinophils Percent Auto 0.8 % (0-4); Hematocrit 36.1 % (37.0-47.0); Hemoglobin 11.7 g/dl (12.0-16.0); Imm Gran Abs Auto 0.02 X10*3/uL (0.00-0.03); Imm Gran Pct Auto 0.2 % (0.0-0.4); Lymphocytes Absolute Auto 3.1 X10*3/uL (1.2-4.9); Lymphocytes Percent Auto 34.6 % (20-40); MANUAL DIFF FLAG NO; Mean Corpuscular HGB Conc 32.4 g/dl (31.0-35.0); Mean Corpuscular Hemoglobin 28.2 pg (27.0-33.0); Mean Platelet Volume 11.3 fL (9.4-12.3); Monocytes Absolute Auto 0.5 X10*3/uL (0.1-1.2); Monocytes Percent Auto 5.3 % (2-11); Neutrophils Absolute Auto 5.3 x10*3/uL (2.0-8.3); Neutrophils Percent Auto 58.9 % (45-73); Platelet Count 241 X10*3/uL (160-400); Red Blood Count 4.15 X10*6/uL (4.20-5.50); Red Cell Distribution Width 13.6 % (11.0-16.0); White Blood Count 8.9 X10*3/uL (4.8-10.8)
[2022-06-28 05:59] LABS: Anion Gap 11 (12-20); Blood Urea Nitrogen 10 mg/dL (9-16); Calcium 7.6 mg/dL (8.4-10.2); Carbon Dioxide 24 mmol/L (22-29); Chloride 109 mmol/L (96-108); Creatinine Clr Calc Pharmacy 56.9; Estimated Glomerular Filt Rate > 60; Glucose Random 121 mg/dL (60-115); Potassium 4.3 mmol/L (3.3-5.1); Sodium 140 mmol/L (135-145)
[2022-06-28 07:25] LABS: Glucose, Whole Blood 112 mg/dL (60-115)
--- NOTE | 2022-06-28 08:56 | MHC.CM.PN ---
ESE addressed with patient's sister/hcp Gerri Joiner [phone]. Copy request be left at bedside, however, if patient is discharged from ED mail via certified mail. Patient lives with sister Talley. Gerri is her HCP on file. She is also her APPLICATIONS INTERN through [facility]. Patient receives 16 hours weekly for days and evenings and 14 night hours total (30 hours weekly). Patient is independent home and community uses walker as needed, she also has DM equipment. Patient is Aileen valverde'milli x2 (MRNA), PCP is Adela Wasserman, and family will transport home. D/C Plan: Home resume services
--- NOTE | 2022-06-28 09:26 | PHA.MEDREC ---
Pharmacy Consult ? Medication Reconciliation Pharmacy has completed the medication reconciliation.
[2022-06-28] MEDS: Lactated Ringers 1,000 ML 100 ML IVCONT ×2 (10:15→22:52)
[2022-06-28] MEDS: Omeprazole 20 MG CAPSULE.DR PO ×2 (10:15→15:28)
[2022-06-28] MEDS: HYDROmorphone HCl 1 MG/ML SYRINGE 0.5 MG IVPUSH (10:16)
[2022-06-28] MEDS: Albuterol/Iprat 2.5/0.5MG 3 ML AMPUL.NEB INHALE ×3 (10:44→20:43)
[2022-06-28 12:19] LABS: Glucose, Whole Blood 88 mg/dL (60-115)
--- NOTE | 2022-06-28 12:56 | P.PNIM_ITS ---
Subjective Subjective Date of Service: 06/28/22 Interval History: the patient was seen and evaluated this morning Laying in bed, feels overall better but still complaining of significant abdominal pain Denies any fever, chills or shortness of breath No reported other overnight events. Systemic review: No fever, chills or weakness No chest pain, palpitation Difficulty breathing Reporting recurrent abdominal pain, associated with nausea No urinary symptoms No any rash or wounds Physical Exam Vital Signs: Vital Signs: Last Vital Signs Temp 98.3 F 06/28/22 10:34 Pulse 96 06/28/22 10:44 Resp 18 06/28/22 10:44 BP 119/72 06/28/22 10:34 Pulse Ox 95 06/28/22 10:34 O2 Del Method 06/28/22 10:34 BMI result Body Mass Index 23.8 Const: Other: Constitutional : Alert, oriented, not in distress Neck : Normal inspection, Supple Cardiovascular : RRR, no JVP, no lower extremity edema Respiratory : fair bilateral air entry, no crackles, expiratory wheezes Gastrointestinal: soft, lax, Normal bowel sounds, generalized tenderness with deep palpation, no surgical signed Skin : Warm, Dry Neurological : Alert & oriented x3, No focal deficit , CN 2-12 within normal Objective Data Active Medications Acetaminophen (Acetaminophen 325 Mg Tablet) 650 mg PO Q6H PRN PRN Reason: Pain, Mild (Pain Scale 1-3) Albuterol Sulfate (Albuterol Sulfate (0.083%) 2.5 Mg/3 Ml Vial.Neb) 2.5 mg INHALE Q4H PRN PRN Reason: Shortness of Breath/Wheezing Albuterol/Ipratropium (Albuterol/Iprat 2.5/0.5mg 3 Ml Ampul.Neb) 3 ml INHALE RQ4H WHILE AWAKE [facility] Last Admin: 06/28/22 10:44 Dose: 3 ml Documented By: ABDULAZIZ Atorvastatin Calcium (Atorvastatin Calcium 80 Mg Tablet) 80 mg PO DAILY [facility] Dextrose (Dextrose 50 % 25 Gm/50 Ml Syringe) 25 gm IVPUSH Q15M PRN; Protocol PRN Reason: per Hypoglycemia Standing Ord. Dicyclomine HCl (Dicyclomine Hcl 10 Mg Capsule) 10 mg PO TID PRN PRN Reason: abdominal pain Enoxaparin Sodium (Enoxaparin Sodium 40 Mg/0.4 Ml Syringe) 40 mg SUBCUT Q24H [facility] Last Admin: 06/27/22 23:48 Dose: 40 mg Documented By: KIM Glucose (Glucose Gel 15 Gm Gel..Gram.) 15 gm PO Q15M PRN; Protocol PRN Reason: per Hypoglycemia Standing Ord. Hydromorphone HCl (Hydromorphone Hcl 1 Mg/Ml Syringe) 0.5 mg IVPUSH Q4H PRN; Protocol PRN Reason: Pain, Severe (Pain Scale 7-10) Last Admin: 06/28/22 10:16 Dose: 0.5 mg Documented By: NNAMDI Lactated Ringer's (Lr) 1,000 mls @ 100 mls/hr IVCONT .Q10H [facility] Last Admin: 06/28/22 10:15 Dose: 100 mls/hr Documented By: NNAMDI Insulin Human Lispro (Insulin Lispro 100 Unit/Ml 3 Ml Vial) 0 unit SUBCUT QIDACHS [facility]; Protocol Last Admin: 06/28/22 12:50 Dose: Not Given Documented By: NNAMDI Non-Admin Reason: No Insulin Coverage Lamotrigine (Lamotrigine 25 Mg Tablet) 25 mg PO BID [facility] Losartan Potassium (Losartan Potassium 25 Mg Tablet) 25 mg PO DAILY [facility]; Protocol Metoprolol Tartrate (Metoprolol Tartrate 12.5 Mg Halftab) 12.5 mg PO BID [facility]; Protocol Nitroglycerin (Nitroglycerin 0.4 Mg Tab.Subl) 0.4 mg SUBLINGUAL Q5M PRN PRN Reason: Chest Pain Omeprazole (Omeprazole 20 Mg Capsule.Dr) 20 mg PO BID@0630,1630 [facility] Oxycodone HCl (Oxycodone Hcl Immed Release 5 Mg Tablet) 5 mg PO Q6H PRN PRN Reason: Pain, Severe (Pain Scale 7-10) Last Admin: 06/28/22 05:30 Dose: 5 mg Documented By: KIM Pharmacy Consult (Consult Rx Perform Med Rec) 1 each MISCELLANE ONCE PRN PRN Reason: Consult order Pregabalin (Pregabalin 200 Mg Capsule) 200 mg PO BEDTIME [facility] Prochlorperazine Edisylate (Prochlorperazine Edisylate 10 Mg/2 Ml Vial) 5 mg IVPUSH Q6H PRN PRN Reason: nausea and vomiting Sodium Chloride (0.9 % Sodium Chloride Flush 3 Ml Syringe) 3 ml IVFLUSH QSHIFT [facility] Last Admin: 06/28/22 10:17 Dose: Not Given Documented By: NNAMDI Non-Admin Reason: IV Running Sucralfate (Sucralfate Oral Suspension 1 Gm/10 Ml Oral.Susp) 1 gm PO BID PRN PRN Reason: GERD Ticagrelor (Ticagrelor 90 Mg Tablet) 90 mg PO BID [facility] Tizanidine HCl (Tizanidine Hcl 4 Mg Tablet) 2 mg PO BEDTIME PRN PRN Reason: muscle spasm Trazodone HCl (Trazodone Hcl 100 Mg Tablet) 100 mg PO BEDTIME [facility] Labs CBC & Chem 7: 06/28/22 04:55 06/28/22 04:55 Labs: Laboratory Results - last 24 hr 06/27/22 06/27/22 06/27/22 19:06 19:06 19:06 MCV 85.0 MCH 28.6 MCHC 33.7 RDW 13.4 Plt Count 310 MPV 10.8 Immature Gran % (Auto) 0.4 Neut % (Auto) 78.0 H Lymph % (Auto) 18.3 L [place] % (Auto) 2.8 Eos % (Auto) 0.3 Baso % (Auto) 0.2 Lymph # (Auto) 3.1 [place] # (Auto) 0.5 Eos # (Auto) 0.1 Baso # (Auto) 0.0 Abs Immat Gran (auto) 0.06 H Absolute Neuts (auto) 13.1 H Absolute Nucleated RBC 0.000 Nucleated RBC % (auto) 0.0 Anion Gap 18 Estim Creat Clear Calc 49.6 Estimated GFR > 60 POC Glucose Random Glucose 146 H Lactic Acid Lactic Acid F/U @ 2Hr Calcium 10.2 D Total Bilirubin 0.3 AST 21 ALT 26 Alkaline Phosphatase 72 Lactate Dehydrogenase 230 H Total Protein 8.1 H Albumin 4.6 Lipase 41 Urine Color Urine Appearance Urine pH Ur Specific [place] Urine Protein Urine Glucose (UA) Urine Ketones Urine Blood Urine Nitrite Ur Leukocyte Esterase COVID-19 ([facility]) Negative COVID-19 Clin Com See Note 06/27/22 06/27/22 06/27/22 19:06 21:32 23:29 MCV MCH MCHC RDW Plt Count MPV Immature Gran % (Auto) Neut % (Auto) Lymph % (Auto) [place] % (Auto) Eos % (Auto) Baso % (Auto) Lymph # (Auto) [place] # (Auto) Eos # (Auto) Baso # (Auto) Abs Immat Gran (auto) Absolute Neuts (auto) Absolute Nucleated RBC Nucleated RBC % (auto) Anion Gap Estim Creat Clear Calc Estimated GFR POC Glucose Random Glucose Lactic Acid 2.6 H* Lactic Acid F/U @ 2Hr 1.7 Calcium Total Bilirubin AST ALT Alkaline Phosphatase Lactate Dehydrogenase Total Protein Albumin Lipase Urine Color YELLOW Urine Appearance CLEAR Urine pH 7.5 Ur Specific [place] 1.015 Urine Protein NEG Urine Glucose (UA) NEG Urine Ketones NEG Urine Blood NEG Urine Nitrite NEG Ur Leukocyte Esterase NEG COVID-19 ([facility]) COVID-19 Medic Trace Com 06/28/22 06/28/22 06/28/22 04:55 04:55 07:19 MCV 87.0 MCH 28.2 MCHC 32.4 RDW 13.6 Plt Count 241 MPV 11.3 Immature Gran % (Auto) 0.2 Neut % (Auto) 58.9 Lymph % (Auto) 34.6 [place] % (Auto) 5.3 Eos % (Auto) 0.8 Baso % (Auto) 0.2 Lymph # (Auto) 3.1 [place] # (Auto) 0.5 Eos # (Auto) 0.1 Baso # (Auto) 0.0 Abs Immat Gran (auto) 0.02 Absolute Neuts (auto) 5.3 Absolute Nucleated RBC 0.000 Nucleated RBC % (auto) 0.0 Anion Gap 11 L Estim Creat Clear Calc 56.9 Estimated GFR > 60 POC Glucose 112 Random Glucose 121 H Lactic Acid Lactic Acid F/U @ 2Hr Calcium 7.6 L D Total Bilirubin AST ALT Alkaline Phosphatase Lactate Dehydrogenase Total Protein Albumin Lipase Urine Color Urine Appearance Urine pH Ur Specific [place] Urine Protein Urine Glucose (UA) Urine Ketones Urine Blood Urine Nitrite Ur Leukocyte Esterase COVID-19 ([facility]) COVID-19 Medic Trace Com 06/28/22 12:10 MCV MCH MCHC RDW Plt Count MPV Immature Gran % (Auto) Neut % (Auto) Lymph % (Auto) [place] % (Auto) Eos % (Auto) Baso % (Auto) Lymph # (Auto) [place] # (Auto) Eos # (Auto) Baso # (Auto) Abs Immat Gran (auto) Absolute Neuts (auto) Absolute Nucleated RBC Nucleated RBC % (auto) Anion Gap Estim Creat Clear Calc Estimated GFR POC Glucose 88 Random Glucose Lactic Acid Lactic Acid F/U @ 2Hr Calcium Total Bilirubin AST ALT Alkaline Phosphatase Lactate Dehydrogenase Total Protein Albumin Lipase Urine Color Urine Appearance Urine pH Ur Specific [place] Urine Protein Urine Glucose (UA) Urine Ketones Urine Blood Urine Nitrite Ur Leukocyte Esterase COVID-19 ([facility]) COVID-19 Clin Com Assessment and Plan (1) Abdominal pain: Status: Acute Plan This is a 62-year-old female with extensive past medical history presents to the hospital with complaints of abdominal pain, vomiting # abdominal pain/vomiting Could be secondary to ischemic colitis, infection CT abdomen negative and shows no evidence of colitis Continue pain meds and antiemetic Start diet and advance as tolerated Consider contrast abdomen CT/GI consult if patient continues to have persistent symptoms Continue IV fluids Add Dicyclomine # GERD Continue omeprazole troponin negative # type 2 diabetes continue home insulin low-dose sliding scale insulin diabetic diet # hypertension stable continue home medications once reviewed by pharmacy # COPD/asthma no acute symptoms continue home inhalers DVT prophylaxis: Lovenox Quality Stroke Does the patient have a stroke diagnosis?: No VTE Prior VTE?: No VTE Risk Level:: Medical - moderate - high VTE Device Contraindication: Treatment Not Indicated VTE Drug Contraindication: N/A - Med Ordered
[2022-06-28 13:28] LABS: Estimated Average Glucose 151 mg/dL; Hemoglobin A1c % 6.9 %
[2022-06-28] MEDS: Dicyclomine HCl 10 MG CAPSULE PO ×2 (15:27→20:47)
[2022-06-28] MEDS: 0.9 % Sodium Chloride Flush 3 ML SYRINGE IVFLUSH (15:29)
[2022-06-28 17:06] LABS: Glucose, Whole Blood 87 mg/dL (60-115)
[2022-06-28] MEDS: Metoprolol Tartrate 12.5 MG HALFTAB PO (20:46)
[2022-06-28] MEDS: lamoTRIgine 25 MG TABLET PO (20:47)
[2022-06-28] MEDS: traZODone HCL 100 MG TABLET PO (20:47)
[2022-06-28 22:18] LABS: Glucose, Whole Blood 83 mg/dL (60-115)
[2022-06-28] MEDS: Ticagrelor 90 MG TABLET PO (22:46)
[2022-06-28] MEDS: Pregabalin 200 MG CAPSULE PO (22:46)
[2022-06-28] MEDS: Enoxaparin Sodium 40 MG/0.4 ML SYRINGE SUBCUT (22:46)
[2022-06-29] VITALS: BP 124/74; PULSE 78; RESP 16; O2SAT 96
[2022-06-29] MEDS: Lactated Ringers 1,000 ML 100 ML IVCONT (05:31)
[2022-06-29] MEDS: Omeprazole 20 MG CAPSULE.DR PO (05:43)
[2022-06-29 05:51] VITALS: BP 109/66; PULSE 93; RESP 16; TEMP 36.7; O2SAT 97
[2022-06-29 07:01] LABS: Hematocrit 36.7 % (37.0-47.0); Hemoglobin 12.1 g/dl (12.0-16.0); Mean Corpuscular Hemoglobin 28.4 pg (27.0-33.0); Mean Corpuscular Volume 86.2 fL (80.0-98.0); Mean Platelet Volume 11.1 fL (9.4-12.3); Platelet Count 255 X10*3/uL (160-400); Red Blood Count 4.26 X10*6/uL (4.20-5.50); Red Cell Distribution Width 13.3 % (11.0-16.0); White Blood Count 5.1 X10*3/uL (4.8-10.8)
[2022-06-29 07:24] LABS: Lactate Dehydrogenase 166 U/L (122-220)
[2022-06-29 07:27] LABS: Glucose, Whole Blood 83 mg/dL (60-115)
[2022-06-29 07:36] LABS: Anion Gap 13 (12-20); Blood Urea Nitrogen 7 mg/dL (9-16); Calcium 8.6 mg/dL (8.4-10.2); Carbon Dioxide 24 mmol/L (22-29); Chloride 108 mmol/L (96-108); Creatinine Clr Calc Pharmacy 56.9; Estimated Glomerular Filt Rate > 60; Glucose Random 93 mg/dL (60-115); Potassium 3.9 mmol/L (3.3-5.1); Sodium 141 mmol/L (135-145)
[2022-06-29 07:51] VITALS: BP 139/80; PULSE 81; RESP 16; O2SAT 96
[2022-06-29] MEDS: Metoprolol Tartrate 12.5 MG HALFTAB PO (08:11)
[2022-06-29] MEDS: lamoTRIgine 25 MG TABLET PO (08:11)
[2022-06-29] MEDS: Dicyclomine HCl 10 MG CAPSULE PO ×2 (08:11→11:23)
[2022-06-29] MEDS: Ticagrelor 90 MG TABLET PO (08:12)
[2022-06-29] MEDS: Atorvastatin Calcium 80 MG TABLET PO (08:12)
[2022-06-29] MEDS: Albuterol/Iprat 2.5/0.5MG 3 ML AMPUL.NEB INHALE ×2 (08:14→11:22)
[2022-06-29] MEDS: Losartan Potassium 25 MG TABLET PO (08:16)
[2022-06-29 08:20] VITALS: PULSE 79; RESP 16; O2SAT 97
[2022-06-29] MEDS: oxyCODONE HCl Immed Release 5 MG TABLET PO (10:02)
[2022-06-29 11:24] VITALS: PULSE 77; RESP 20; O2SAT 98
--- NOTE | 2022-06-29 11:37 | PM.DS ---
DS: Providers Provider Date of Service: 06/29/22 Date of admission: 06/27/22 22:33 Primary care physician: Adela Wasserman MD DS: Diagnosis Discharge Diagnosis (1) Abdominal pain: Status: Acute DS: Summary Hospital Course Hospital Course: Admission note HPI 62-year-old female with past medical history of COPD, diabetes, hyperthyroidism, history of breast cancer, fibromyalgia, IBS, anxiety, asthma, bipolar disorder, hyperlipidemia, HTN, PAD, among others who presents to the hospital with complaints of severe abdominal pain.? Patient reports the abdominal pain is diffuse, but worse in the right upper and right lower quadrant, nonradiating, 10/10, constant, stabbing pain sudden onset, associated with 4 episodes of vomiting.? Reports constipation.? She also complaining of stabbing epigastric pain, radiating up the chest, she has also had a dry cough for 3 days, she reports no fever no chills, reports an episode of ischemic colitis loss here, denies any palpitations, no shortness of breath, no urinary symptoms and no lower extremity edema. On arrival to the ED patient hemodynamically stable with heart rate in the 140s, respiratory rate of 24, blood pressure 153/90 Labs are significant for WBC count of 16.8, hemoglobin of 15.8, hematocrit 46.9, lactic acid of 2.6 at resolved after IV fluids, LDH of 230, lipase of 41, UA negative, troponin negative, Chest abdominal pelvic CT shows no acute intrathoracic disease, there is evidence of prior granulomatosis disease with Gohn complex Incidentally noted hepatic steatosis with normal appearing appendix and no evidence of nephrolithiasis or obstructive uropathy Given the intractable abdominal pain patient will be admitted for further management Hospital course The patient was admitted for evaluation of abdominal pain and vomiting. Blood work within normal. CT abdomen was negative for any acute findings and did not show any evidence of colitis. She was treated with supportive measures of IV fluid and nausea medication with good response over the course of hospital stay as pain and vomiting resolved and she became tolerant of food. Dicyclomine was used for spasms. Use Zofran as needed for nausea Advance your diet slowly over the next few days Come back to the hospital for any worsening pain, fever Time Spent with Patient Time attestation: Total time spent providing and/or coordinating discharge services: Discharge coordination time: Less than 30 minutes Quality: Safe Use of Opioids Does Pt have an Active Cancer Diagnosis on the Problem List?: No Quality: Stroke Does the patient have a stroke diagnosis?: No Physical Exam Vital Signs: Vital Signs: Last Vital Signs Temp 98.1 F 06/29/22 05:51 Pulse 77 06/29/22 11:24 Resp 20 06/29/22 11:24 BP 139/80 06/29/22 07:51 Pulse Ox 96 06/29/22 07:51 O2 Del Method 06/29/22 07:51 BMI result Body Mass Index 23.8 Const: Other: Constitutional : Alert, oriented, not in distress Neck : Normal inspection, Supple Cardiovascular : RRR, no JVP, no lower extremity edema Respiratory : fair bilateral air entry, no crackles, expiratory wheezes Gastrointestinal: soft, lax, Normal bowel sounds, no tenderness or surgical signs Skin : Warm, Dry Neurological : Alert & oriented x3, No focal deficit , CN 2-12 within normal DS: Data Data Completed and Pending Labs on day of discharge: Laboratory Results - last 24 hr 06/28/22 06/28/22 06/28/22 05:35 12:10 16:59 WBC RBC Hgb Hct MCV MCH MCHC RDW Plt Count MPV Absolute Nucleated RBC Nucleated RBC % (auto) Sodium Potassium Chloride Carbon Dioxide Anion Gap BUN Creatinine Estim Creat Clear Calc Estimated GFR POC Glucose 88 87 Random Glucose Estimat Average Glucose 151 Hemoglobin A1c % 6.9 Calcium Lactate Dehydrogenase 06/28/22 06/29/22 06/29/22 22:14 06:25 06:25 WBC 5.1 RBC 4.26 Hgb 12.1 Hct 36.7 L MCV 86.2 MCH 28.4 MCHC 33.0 RDW 13.3 Plt Count 255 MPV 11.1 Absolute Nucleated RBC 0.000 Nucleated RBC % (auto) 0.0 Sodium Potassium Chloride Carbon Dioxide Anion Gap BUN Creatinine Estim Creat Clear Calc Estimated GFR POC Glucose 83 Random Glucose Estimat Average Glucose Hemoglobin A1c % Calcium Lactate Dehydrogenase 166 06/29/22 06/29/22 06:25 07:23 WBC RBC Hgb Hct MCV MCH MCHC RDW Plt Count MPV Absolute Nucleated RBC Nucleated RBC % (auto) Sodium 141 Potassium 3.9 Chloride 108 Carbon Dioxide 24 Anion Gap 13 BUN 7 L Creatinine 0.75 Estim Creat Clear Calc 56.9 Estimated GFR > 60 POC Glucose 83 Random Glucose 93 Estimat Average Glucose Hemoglobin A1c % Calcium 8.6 D Lactate Dehydrogenase Preliminary micro results at discharge 06/27/22 19:06 Blood Culture - Preliminary Blood - Venous No growth after 24 hours. 06/27/22 19:06 Blood Culture - Preliminary Blood - Venous No growth after [address] scan - abdomen: Radiologist's impression: ITS Impressions Abdomen/Pelvis CT 06/27/22 21:11 IMPRESSION: 1. No acute intrathoracic disease. Evidence of prior granulomatous disease with a Gohn complex. 2. Incidentally noted hepatic steatosis with normal-appearing appendix and no evidence of nephrolithiasis or obstructive uropathy. Fleischner guidelines were followed. Chest CT 06/27/22 21:11 IMPRESSION: 1. No acute intrathoracic disease. Evidence of prior granulomatous disease with a Gohn complex. 2. Incidentally noted hepatic steatosis with normal-appearing appendix and no evidence of nephrolithiasis or obstructive uropathy. Fleischner guidelines were followed. Discharge Plan Discharge Patient Disposition: Home, Self-Care Discharge Diagnosis: Abdominal pain Referrals: Adela Gipson MD [Primary Care Provider] - 1 Week Discharge Medications: New ondansetron 4 mg tablet,disintegrating 4 mg PO Q8H PRN (Reason: nausea and vomiting) Qty: 14 0RF Continued losartan 25 mg tablet 25 mg PO DAILY 90 Days Qty: 90 2RF ipratropium-albuterol 0.5 mg-3 mg(2.5 mg base)/3 mL solution for nebulization 3 ml inhalation Q6H PRN (Reason: wheezing) Qty: 180 2RF (DME) pen needle, diabetic [Comfort EZ Pen Dutton] 31 gauge x 5/16 needle See Rx Instructions .ROUTE .MEDSUPPLY Qty: 200 11RF Rx Instructions: Use 1 pen needle 6 times a day (DME) lancets [FreeStyle Lancets] 28 gauge misc See Rx Instructions .Route Qty: 100 3RF Rx Instructions: Use 1 lancet once a day lamotrigine 25 mg tablet 25 mg PO BID 90 Days Qty: 180 1RF albuterol sulfate 90 mcg/actuation HFA aerosol inhaler 2 puff PO Q4H PRN (Reason: for wheezing) Qty: 8.5 2RF pregabalin [Lyrica] 200 mg capsule 200 mg PO BEDTIME Qty: 30 3RF trazodone 100 mg tablet 100 mg PO BEDTIME 90 Days Qty: 90 0RF (DME) FreeStyle Lite Strips Strip MISCELLANEOUS DAILY Qty: 50 1RF Rx Instructions: Use 1 test strip once a day dicyclomine 10 mg capsule 10 mg PO TID PRN (Reason: abdominal pain) 30 Days Qty: 30 1RF pantoprazole 40 mg tablet,delayed release (DR/EC) 40 mg PO BID 90 Days Qty: 180 0RF sucralfate [Carafate] 100 mg/mL suspension 10 ml PO BID PRN (Reason: GERD) 15 Days Qty: 300 0RF letrozole 2.5 mg Tablet 2.5 mg PO DAILY Qty: 90 4RF aspirin 81 mg tablet,delayed release (DR/EC) 81 mg PO DAILY tizanidine 2 mg tablet 1 tab PO BEDTIME PRN (Reason: muscle spasm) Trulicity 1.5 mg/0.5 mL pen injector 0.5 ml subcut WE insulin aspart U-100 [Novolog Flexpen U-100 Insulin] 100 unit/mL (3 mL) insulin pen See Protocol subcut TIDAC Protocol: Insulin Correction Scale Less than or equal to 110 ---- Give (units): 0 111 to 150 Give (units): 0 151 to 200 Give (units): 2 201 to 250 Give (units): 4 251 to 300 Give (units): 6 301 to 350 Give (units): 8 Greater than 350 Give (units): 10 Call MD if Blood Glucose > : 350 O[place]cia ClickJect 125 mg/mL auto-injector 125 mg subcut SA nitroglycerin 0.4 mg tablet, sublingual 0.4 mg sublingual Q5M PRN (Reason: Chest Pain) atorvastatin 80 mg tablet 80 mg PO DAILY 90 Days Qty: 90 1RF Rx Instructions: patient lost recent RX, please fill this as emergency RX this one time metoprolol tartrate 25 mg tablet 12.5 mg PO BID 90 Days Qty: 90 1RF Rx Instructions: Patient recently lost her Rx, please fill this rx as an emergency release. Thanks Brilinta 90 mg tablet 90 mg PO BID 90 Days Qty: 180 1RF Rx Instructions: Please fill Rx today, patient lost previous RX, fill as emergency this one time Xiidra 5 % dropperette 1 drp ophthalmic (eye) BID Discharge Orders: Discharge Order (Routine); Ordered 06/29/22 Ordered By: Yayo Cosme Diet: Advance to usual diet Activity on Discharge: As tolerated Stand Alone Forms: Patient Portal Discharge page Care Plan Goals: Read below Health Concerns: Read below Plan of Treatment: Read below Assessment: You were admitted to the hospital for evaluation of abdominal pain. Abdominal images were negative for any acute illness. Your symptoms believed to be secondary to viral illness or food poisoning that improved during her hospital stay and supportive therapy. Use Zofran as needed for nausea Advance your diet slowly over the next few days Come back to the hospital for any worsening pain, fever
--- NOTE | 2022-06-29 11:39 | MHC.CM.PN ---
PT TO [facility] HOME TODAY WITH [facility]UMPTION OF [facility] [employer] [facility] TO TRANSPORT
== END 2022-06-29 11:47 | disposition home or self-care (01) ==
LOC: HO.ED 22:40 → HO.EDOVER 22:55
PROVIDERS: Admitting Provider Internal Medicine; Emergency Provider Emergency Medicine Emergency Medical Services; PCP Internal Medicine; Visit Provider Student in an Organized Health Care Education/Training Program
DX: R10.30 Lower abdominal pain, unspecified (principal); R10.13 Epigastric pain; R74.02 Elevation of levels of lactic acid dehydrogenase [LDH]; K76.0 Fatty (change of) liver, not elsewhere classified; Z20.822 Contact with and (suspected) exposure to COVID-19; E11.9 Type 2 diabetes mellitus without complications; E78.5 Hyperlipidemia, unspecified; J44.9 Chronic obstructive pulmonary disease, unspecified; E21.3 Hyperparathyroidism, unspecified; M79.7 Fibromyalgia; G47.00 Insomnia, unspecified; I73.9 Peripheral vascular disease, unspecified; M05.9 Rheumatoid arthritis with rheumatoid factor, unspecified; E04.1 Nontoxic single thyroid nodule; E55.9 Vitamin D deficiency, unspecified; F31.9 Bipolar disorder, unspecified; F17.210 Nicotine dependence, cigarettes, uncomplicated; Z90.710 Acquired absence of both cervix and uterus; Z98.51 Tubal ligation status; Z85.3 Personal history of malignant neoplasm of breast; Z79.4 Long term (current) use of insulin; Z79.82 Long term (current) use of aspirin; Z79.02 Long term (current) use of antithrombotics/antiplatelets; Z79.899 Other long term (current) drug therapy
CPT/HCPCS: 36415; 51701; 71250; 74176; 80048; 80053; 81003; 82947; 83036; 83605; 83615; 83690; 84484; 85025; 85027; 87040; 87635; 93005; 94640; 96361; 96365; 96372; 96375; 96376; 99218; 99285; J1170; J1650; J2405; J2543

== ENCOUNTER → 2022-07-05 11:03 | Outpatient (BNVA) | payer MEDICARE, MEDICAID, SELFPAY ==
[2022-07-02 13:53] VITALS: BP 100/64; BP 102/48; BP 110/70; BMI 25.5
== END ==
PROVIDERS: PCP Internal Medicine; Visit Provider Internal Medicine
DX: J44.9 Chronic obstructive pulmonary disease, unspecified (principal)
CPT/HCPCS: 99212

== ENCOUNTER 2022-07-05 13:49 | Emergency (ER) | payer MEDICARE, MEDICAID, SELFPAY ==
[2022-07-02 13:53] VITALS: BP 100/64; BP 102/48; BP 110/70; BMI 25.5
--- NOTE | ~2022-07-05 | CT_ITS ---
EXAMINATION: CT ABDOMEN AND PELVIS WITH CONTRAST CLINICAL INFORMATION: Abdominal pain, question cholelithiasis/pancreatitis COMPARISON: CT abdomen and pelvis 06/27/2022 TECHNIQUE: Multidetector volumetric images were obtained from the superior aspect of the liver through the pubic symphysis following administration of 75 mL of Omnipaque 350 intravenous contrast. Sagittal and coronal reformatted images were obtained on the technologist's workstation. Oral contrast: No This CT examination was performed using dose optimization techniques as appropriate, variously including the following: *Automated exposure control *Adjustment of mA and/or kV according to patient size (this includes techniques or standardized protocols for targeted exams where dose is matched to indication/reason for exam; i.e. extremities or head) *Use of iterative reconstruction technique DLP: 382 mGy-cm FINDINGS: LUNG BASES: Lung bases are clear. Coronary artery calcifications. LIVER, GALLBLADDER, AND BILIARY TREE: Diffusely decreased liver parenchymal attenuation suggesting hepatic steatosis. No focal hepatic lesions or intrahepatic biliary ductal dilatation. The gallbladder is unremarkable with no evidence of radiopaque gallstones, gallbladder wall thickening, or obvious pericholecystic inflammatory changes. PANCREAS: Unremarkable. SPLEEN: Normal size spleen. Small splenule within the hilum. ADRENAL GLANDS: Unremarkable. KIDNEYS AND URETERS: The kidneys are normal in size, shape, and attenuation. No hydronephrosis, hydroureter, or calculi seen. No perinephric stranding. BLADDER: Unremarkable. GASTROINTESTINAL TRACT: No bowel obstruction. Normal appendix. Moderate stool burden throughout the colon. ABDOMINAL WALL: Tiny fat-containing umbilical hernia. LYMPH NODES: Normal. VASCULAR: Mild to moderate calcified and noncalcified plaque in the abdominal aorta. PELVIC VISCERA: The uterus appears surgically absent. OSSEOUS STRUCTURES: No destructive bony lesions. CT/CT abdomen pelvis w con IMPRESSION: 1. No acute abnormality in the pelvis. 2. Hepatic steatosis. 3. Moderate stool burden throughout the colon. 4. Atherosclerotic disease including coronary artery calcifications. Fleischner guidelines were followed.
--- NOTE | ~2022-07-05 | XR_ITS ---
EXAMINATION: XR CHEST CLINICAL INFORMATION: Upper respiratory symptoms COMPARISON: 06/11/2022 TECHNIQUE: Frontal view of the chest was obtained. FINDINGS: No significant abnormality is noted involving the heart, lungs, mediastinum, bony thorax or soft tissues. XR/XR chest 1V IMPRESSION: Unremarkable examination.
[2022-07-05 14:08] VITALS: BP 143/89; PULSE 109; RESP 22; TEMP 36.8; O2SAT 98; BMI 23.8
[2022-07-05] MEDS: Ondansetron ODT 4 MG TAB.RAPDIS TRANSLINGU (14:28)
[2022-07-05 14:42] LABS: MANUAL DIFF FLAG NO
[2022-07-05 14:44] LABS: Appearance Urine Clear; Basophils Percent Auto 0.3 % (0-2); Color Urine Yellow; Eosinophils Absolute Auto 0.1 X10*3/uL (0.0-0.4); Eosinophils Percent Auto 0.6 % (0-4); Glucose Urine UA Negative (Negative); Hematocrit 42.9 % (37.0-47.0); Imm Gran Abs Auto 0.03 X10*3/uL (0.00-0.03); Imm Gran Pct Auto 0.3 % (0.0-0.4); Leukocyte Esterase Urine Negative (Negative); Lymphocytes Absolute Auto 3.3 X10*3/uL (1.2-4.9); Mean Corpuscular HGB Conc 32.6 g/dl (31.0-35.0); Mean Corpuscular Hemoglobin 28.2 pg (27.0-33.0); Mean Corpuscular Volume 86.3 fL (80.0-98.0); Mean Platelet Volume 10.4 fL (9.4-12.3); Monocytes Absolute Auto 0.6 X10*3/uL (0.1-1.2); Monocytes Percent Auto 5.5 % (2-11); Neutrophils Absolute Auto 7.1 x10*3/uL (2.0-8.3); Neutrophils Percent Auto 63.3 % (45-73); Nitrite Urine Negative (Negative); Platelet Count 383 X10*3/uL (160-400); Red Blood Count 4.97 X10*6/uL (4.20-5.50); Red Cell Distribution Width 13.7 % (11.0-16.0); Specific Gravity - Urine 1.015 (1.005-1.025); Urine Blood Negative (Negative); Urine Ketones Negative (Negative); Urine Protein Negative (Neg-Trace); White Blood Count 11.1 X10*3/uL (4.8-10.8)
[2022-07-05 15:01] LABS: COVID-19 Test Negative (Negative); IDNOW Serial# 16C4AD1C
--- NOTE | 2022-07-05 15:08 | ECG_ITS ---
Test Reason : upper abd pain Blood Pressure : / mmHG Vent. Rate : 106 BPM Atrial Rate : 106 BPM P-R Int : 156 ms QRS Dur : 080 ms QT Int : 320 ms P-R-T Axes : 078 084 072 degrees QTc Int : 425 ms Sinus tachycardia Otherwise normal ECG When compared with ECG of 27-JUN-2022 19:10, No significant change was found Referred By: Jesse Manzanares Electronically Signed By:ALIA THURSTON
[2022-07-05 15:12] LABS: Alanine Aminotransferase 25 U/L (0-31); Albumin Level 4.7 g/dL (3.5-5.0); Alkaline Phosphatase 64 U/L (39-117); Anion Gap 16 (12-20); Aspartate Amino Transferase 18 U/L (5-31); Bilirubin Total 0.3 mg/dL (0.0-1.0); Blood Urea Nitrogen 7 mg/dL (9-16); Calcium 9.8 mg/dL (8.4-10.2); Carbon Dioxide 25 mmol/L (22-29); Chloride 105 mmol/L (96-108); Creatinine Clr Calc Pharmacy 48.5; Estimated Glomerular Filt Rate > 60; Glucose Random 111 mg/dL (60-115); Potassium 4.4 mmol/L (3.3-5.1); Sodium 142 mmol/L (135-145); Total Protein 7.8 g/dL (6.5-8.0)
--- NOTE | 2022-07-05 15:28 | ED_ITS ---
HPI - General Adult General Chief complaint: Upper Respiratory Symptoms Stated complaint: vomiting, abd pain, cough Time Seen by Provider: 07/05/22 14:57 Source: patient Mode of arrival: ambulatory Limitations: no limitations History of Present Illness HPI narrative: 62-year-old female history of N- STEMI, COPD, ischemic colitis, GERD, CVA presents to ED for mid upper abdominal pain the began around 13:00 this af ternoon. Patient described as sharp stabbing with nausea and vomiting. Patient vomit is yellow and white. She denies coughing up blood, lower extremity swelling, pitting edema, calf pain, dysuria, hematuria, flank pain, pleurisy, shortness of breath, diarrhea, blood in stool, syncope or weakness. Related Data Home Medications Medication Instructions Recorded Confirmed dulaglutide 1.5 mg/0.5 mL 0.5 ml subcut WE 12/26/21 07/05/22 subcutaneous pen injector (Trulicity) insulin aspart U-100 100 unit/mL See Protocol subcut TIDAC 12/26/21 07/05/22 (3 mL) subcutaneous pen (Novolog Flexpen U-100 Insulin aspart) tizanidine 2 mg tablet 1 tab PO BEDTIME PRN muscle spasm 12/26/21 07/05/22 nitroglycerin 0.4 mg sublingual 0.4 mg sublingual Q5M PRN Chest 01/03/22 07/05/22 tablet Pain aspirin 81 mg tablet,delayed 81 mg PO DAILY 06/11/22 07/05/22 release lifitegrast 5 % eye drops in a 1 drp ophthalmic (eye) BID 06/11/22 07/05/22 dropperette (Xiidra) abatacept 125 mg/mL subcutaneous 125 mg subcut SA 06/28/22 07/05/22 auto-injector (Orencia ClickJect) erythromycin 5 mg/gram (0.5 %) eye 0 mg ophthalmic (eye) 07/05/22 07/05/22 ointment prednisone 20 mg tablet 20 mg PO BID 07/05/22 07/05/22 Previous Rx's Medication Instructions Recorded letrozole 2.5 mg tablet 2.5 mg PO DAILY #90 tabs 11/08/21 losartan 25 mg tablet 25 mg PO DAILY 90 days #90 tabs 01/24/22 atorvastatin 80 mg tablet 80 mg PO DAILY 90 days #90 tabs 02/06/22 metoprolol tartrate 25 mg tablet 12.5 mg PO BID 90 days #90 tabs 02/06/22 ticagrelor 90 mg tablet (Brilinta) 90 mg PO BID 90 days #180 tabs 02/06/22 ipratropium 0.5 mg-albuterol 3 mg 3 ml inhalation Q6H PRN wheezing 05/03/22 (2.5 mg base)/3 mL nebulization #180 mL soln lancets 28 gauge (FreeStyle #100 ea 06/07/22 Lancets) pen needle, diabetic 31 gauge x #200 ea 06/07/22 5/16 (Comfort EZ Pen Ponce) lamotrigine 25 mg tablet 25 mg PO BID 90 days #180 tabs 06/11/22 albuterol sulfate 90 mcg/actuation 2 puff PO Q4H PRN for wheezing 06/13/22 aerosol inhaler #8.5 ea pregabalin 200 mg capsule (Lyrica) 200 mg PO BEDTIME #30 caps 06/13/22 trazodone 100 mg tablet 100 mg PO BEDTIME 90 days #90 tabs 06/13/22 blood sugar diagnostic (FreeStyle #50 ea 06/14/22 Lite Strips) dicyclomine 10 mg capsule 10 mg PO TID PRN abdominal pain 30 06/15/22 days #30 caps pantoprazole 40 mg tablet,delayed 40 mg PO BID 90 days #180 tabs 06/27/22 release sucralfate 100 mg/mL oral 10 ml PO BID PRN GERD 15 days #300 06/27/22 suspension (Carafate) mL ondansetron 4 mg disintegrating 4 mg PO Q8H PRN nausea and 06/29/22 tablet vomiting #14 tabs pregabalin 150 mg capsule 150 mg PO .COMPLEX #30 caps 06/29/22 azithromycin 250 mg tablet 250 mg PO 3XW Cough/Asthma 10 days 07/05/22 #5 tab-caps famotidine 20 mg tablet (Pepcid) 20 mg PO BID 10 days #20 tabs 07/05/22 oxycodone 5 mg tablet 5 mg PO TID PRN pain 3 days #9 tabs 07/05/22 prednisone 5 mg tablet 5 mg PO BID cough/asthma 2 weeks 07/05/22 #28 tabs Allergies Allergy/AdvReac Type Severity Reaction Status Date / Time dog dander [DOGS] Allergy Intermediate Respiratory Verified 07/05/22 12:55 distress ibuprofen [Ibuprofen] Allergy Intermediate STOMACH Verified 07/05/22 12:55 UPSET, abdominal pain, nausea and vomiting shellfish derived Allergy Intermediate Hives Verified 07/05/22 12:55 etanercept [From Enbrel] AdvReac Intermediate Facial Verified 07/05/22 12:55 Swelling metformin AdvReac Intermediate diarrhea Verified 07/05/22 12:55 metronidazole [From FLAGYL] AdvReac Intermediate DIARRHEA Verified 07/05/22 12:55 prednisone AdvReac Intermediate hallucinations, Verified 07/05/22 12:55 higher than 20 Review of Systems Review of Systems: Abdominal pain Yes all other systems are reviewed and are negative [facility] Past Medical History Medical History Allergic rhinitis Allergic rhinitis Allergic rhinitis Anxiety Asthma Asthma Atherosclerotic cardiovascular disease Bipolar 1 disorder, depressed Bloody diarrhea Breast cancer Breast pain, right Bronchial asthma Colitis Colitis COPD (chronic obstructive pulmonary disease) COPD exacerbation Cough Depression Diabetes mellitus Diabetes type 2, uncontrolled Dyslipidemia Fibromyalgia Hospital discharge follow-up Hyperkalemia Hyperlipidemia LDL goal <100 Hyperparathyroidism Hypertension Hypothyroid Hypothyroid IDDM (insulin dependent diabetes mellitus) IDDM (insulin dependent diabetes mellitus) Infiltrating ductal carcinoma of left breast, stage 2 Insomnia Irritable bowel Osteoporosis PAD (peripheral artery disease) Rash Reactive airways dysfunction syndrome Restrictive airway disease Rheumatoid arthritis Seropositive rheumatoid arthritis T2DM (type 2 diabetes mellitus) Thyroid nodule Vitamin D deficiency Surgical History H/O cardiac catheterization H/O: hysterectomy History of bunionectomy of both great toes History of colonoscopy History of esophagogastroduodenoscopy (EGD) History of lumpectomy of left breast History of pubovaginal sling History of tubal ligation Family History Family History Mother Diabetes HTN (hypertension) Uterus cancer Malignant tumor of head Breast cancer Father Diabetes HTN (hypertension) CVD (cardiovascular disease) Heart problem Maternal Aunt Breast cancer Brother Myocardial infarction S/P CABG x 4 Family/Other FH: mental illness Family/Other Lung cancer Other Mental health disorder Social History Social History Household Members: Family Household Members Other:: sister Housing: Apartment Are you a primary morning caregiver to a significant other at home: No Do you presently have visiting nurse or other home services: Yes (sister=stitch wheeler) Alcohol intake: never Patient Tobacco Use Status: Current everyday Tobacco user Tobacco use type: Cigarette Cigarette Packs Per Day: 1 Cigarettes Per Day: 1 Years Smoked: 50 +/- e-Cigarette/Vaping Use: Former Use Second Hand Smoke Exposure: No Advance Directives: Yes Advance Directives on File: Yes Advance Directives Date on File: 12/22/21 service: No Current occupational status: disabled Current occupation: rt handed Cognitive needs: No Hearing needs: No Vision needs: No Physical Exam ED Vital Signs: Vital Signs - 24 hr 07/05/22 14:08 07/05/22 15:46 07/05/22 16:18 Temperature 98.2 F Pulse Rate 109 H 109 H Respiratory Rate 22 H 16 20 Blood Pressure 143/89 H Pulse Oximetry 98 Oxygen Delivery Method Room Air BMI result Body Mass Index 23.8 Const General: cooperative, healthy appearing, comfortable, no acute distress, well developed, alert, awake and Physically active Orientation/consciousness: patient oriented x3 HENMT Head: Yes normal to inspection, Yes No palpable skull fracture present, Yes normocephalic, Yes atraumatic and No abrasion Eyes General: appearance normal, both eyes and all related structures Neck Neck: Yes normal visual inspection, Yes full ROM, Yes no lymphadenopathy, Yes no meningeal signs, Yes trachea midline, Yes supple, No anterior neck swelling and No tender Chest Chest palpation & inspection: normal inspection of the chest and normal palpation of entire chest wall Resp Effort & Inspection: normal respiratory effort and able to speak in complete sentences Cardio Jugular venous distension: no JVD Heart sounds: S1 normal heart sound present and S2 normal heart sound present GI Inspection: Yes normal to inspection and No abdominal wall ecchymosis Palpation (GI): Soft to palpation, not firm, Tenderness to palpation present (GI) in the epigastrum, no guarding and not rigid General: No CVA tenderness and Yes no CVA tenderness Back/Spine/Pelvis Back: no CVA tenderness, No CVA tenderness and No back tenderness Skin General skin exam: no rashes or lesions noted and elasticity normal Neuro General: patient oriented x3, gait normal, no meningeal signs and CN's II-XI intact bilaterally Cranial nerves: Yes CN's II-XII intact bilaterally Extrem General: Yes normal to inspection and Yes full ROM Psych Appearance: grossly normal, well kempt and not disheveled Course Course Course Narrative: Patient has significant tenderness in the epigastric upper abdominal area palpation. Patient notes was reviewed and patient was seen here last week on the and admitted for intractable abdominal pain with normal CT scan. Patient will be evaluated by sales and leasing agent today that was sent to ED for the severe pain. Due to age upper abdominal pain will do EKG cardiac evaluation. GI cocktail and morphine ordered. Reevaluation(s) Reevaluation #1: Patient re-evaluated and still having pain after receiving 8 of morphine. Abdomen plating equipment tender on palpation. Wheezing improved after receiving albuterol DuoNeb nebulizer. Patient sent for repeat abdominal scan. Reevaluation #2: CT scan came back negative for any medical/surgical etiology. Pending 2nd troponin. Lungs are clear on re-evaluation. Patient no need to be admitted. Patient has similar presentation when was admitted had negative workup. Patient informed to follow-up with her sales and leasing agent Dr. Cruz for EGD to evaluate for ulcers or H pylori. Second troponin negative. Patient denies any symptoms or risk factors for PE. Time: 20:56 Medical Decision Making MDM Narrative Medical decision making narrative: GERD. Abdominal pain Lab Data Result diagrams: 07/05/22 14:36 07/05/22 14:36 Labs: Lab Results 07/05/22 07/05/22 07/05/22 Range/Units 14:36 14:36 14:36 WBC 11.1 H (4.8-10.8) X10*3/uL RBC 4.97 (4.20-5.50) X10*6/uL Hgb 14.0 (12.0-16.0) g/dl Hct 42.9 (37.0-47.0) % MCV 86.3 (80.0-98.0) fL MCH 28.2 (27.0-33.0) pg MCHC 32.6 (31.0-35.0) g/dl RDW 13.7 (11.0-16.0) % Plt Count 383 D (160-400) X10*3/uL MPV 10.4 (9.4-12.3) fL Immature Gran % (Auto) 0.3 (0.0-0.4) % Neut % (Auto) 63.3 (45-73) % Lymph % (Auto) 30.0 (20-40) % [place] % (Auto) 5.5 (2-11) % Eos % (Auto) 0.6 (0-4) % Baso % (Auto) 0.3 (0-2) % Lymph # (Auto) 3.3 (1.2-4.9) X10*3/uL [place] # (Auto) 0.6 (0.1-1.2) X10*3/uL Eos # (Auto) 0.1 (0.0-0.4) X10*3/uL Baso # (Auto) 0.0 (0.0-0.2) X10*3/uL Abs Immat Gran (auto) 0.03 (0.00-0.03) X10*3/uL Absolute Neuts (auto) 7.1 (2.0-8.3) x10*3/uL Absolute Nucleated RBC 0.000 (0.0-0.012) X10*3/uL Nucleated RBC % (auto) 0.0 (0.0-0.2) /100WBC PT (10.0-13.1) SEC INR (0.9-1.1) APTT (26.0-36.4) SEC Sodium 142 (135-145) mmol/L Potassium 4.4 (3.3-5.1) mmol/L Chloride 105 (96-108) mmol/L Carbon Dioxide 25 (22-29) mmol/L Anion Gap 16 (12-20) BUN 7 L (9-16) mg/dL Creatinine 0.88 (0.5-1.4) mg/dL Estim Creat Clear Calc 48.5 Estimated GFR > 60 Random Glucose 111 (60-115) mg/dL Calcium 9.8 D (8.4-10.2) mg/dL Total Bilirubin 0.3 (0.0-1.0) mg/dL AST 18 (5-31) U/L ALT 25 (0-31) U/L Alkaline Phosphatase 64 (39-117) U/L Troponin I High Sens (<3.5-17.0) ng/L Total Protein 7.8 (6.5-8.0) g/dL Albumin 4.7 (3.5-5.0) g/dL Lipase 50 (8-78) U/L Urine Color Urine Appearance Urine pH (5.0-8.0) Ur Specific [place] (1.005-1.025) Urine Protein (Neg-Trace) mg/dL Urine Glucose (UA) (Negative) mg/dL Urine Ketones (Negative) mg/dL Urine Blood (Negative) Urine Nitrite (Negative) Ur Leukocyte Esterase (Negative) COVID-19 (KRISS) Negative (Negative) COVID-19 Clin Com See Note 07/05/22 07/05/22 07/05/22 Range/Units 14:36 14:36 15:25 WBC (4.8-10.8) X10*3/uL RBC (4.20-5.50) X10*6/uL Hgb (12.0-16.0) g/dl Hct (37.0-47.0) % MCV (80.0-98.0) fL MCH (27.0-33.0) pg MCHC (31.0-35.0) g/dl RDW (11.0-16.0) % Plt Count (160-400) X10*3/uL MPV (9.4-12.3) fL Immature Gran % (Auto) (0.0-0.4) % Neut % (Auto) (45-73) % Lymph % (Auto) (20-40) % [place] % (Auto) (2-11) % Eos % (Auto) (0-4) % Baso % (Auto) (0-2) % Lymph # (Auto) (1.2-4.9) X10*3/uL [place] # (Auto) (0.1-1.2) X10*3/uL Eos # (Auto) (0.0-0.4) X10*3/uL Baso # (Auto) (0.0-0.2) X10*3/uL Abs Immat Gran (auto) (0.00-0.03) X10*3/uL Absolute Neuts (auto) (2.0-8.3) x10*3/uL Absolute Nucleated RBC (0.0-0.012) X10*3/uL Nucleated RBC % (auto) (0.0-0.2) /100WBC PT 13.0 (10.0-13.1) SEC INR 1.1 (0.9-1.1) APTT 34.1 (26.0-36.4) SEC Sodium (135-145) mmol/L Potassium (3.3-5.1) mmol/L Chloride (96-108) mmol/L Carbon Dioxide (22-29) mmol/L Anion Gap (12-20) BUN (9-16) mg/dL Creatinine (0.5-1.4) mg/dL Estim Creat Clear Calc Estimated GFR Random Glucose (60-115) mg/dL Calcium (8.4-10.2) mg/dL Total Bilirubin (0.0-1.0) mg/dL AST (5-31) U/L ALT (0-31) U/L Alkaline Phosphatase (39-117) U/L Troponin I High Sens < 3.5 D (<3.5-17.0) ng/L Total Protein (6.5-8.0) g/dL Albumin (3.5-5.0) g/dL Lipase (8-78) U/L Urine Color Yellow Urine Appearance Clear Urine pH 7.0 (5.0-8.0) Ur Specific [place] 1.015 (1.005-1.025) Urine Protein Negative (Neg-Trace) mg/dL Urine Glucose (UA) Negative (Negative) mg/dL Urine Ketones Negative (Negative) mg/dL Urine Blood Negative (Negative) Urine Nitrite Negative (Negative) Ur Leukocyte Esterase Negative (Negative) COVID-19 (KRISS) (Negative) COVID-19 Clin Com 07/05/22 Range/Units 20:41 WBC (4.8-10.8) X10*3/uL RBC (4.20-5.50) X10*6/uL Hgb (12.0-16.0) g/dl Hct (37.0-47.0) % MCV (80.0-98.0) fL MCH (27.0-33.0) pg MCHC (31.0-35.0) g/dl RDW (11.0-16.0) % Plt Count (160-400) X10*3/uL MPV (9.4-12.3) fL Immature Gran % (Auto) (0.0-0.4) % Neut % (Auto) (45-73) % Lymph % (Auto) (20-40) % [place] % (Auto) (2-11) % Eos % (Auto) (0-4) % Baso % (Auto) (0-2) % Lymph # (Auto) (1.2-4.9) X10*3/uL [place] # (Auto) (0.1-1.2) X10*3/uL Eos # (Auto) (0.0-0.4) X10*3/uL Baso # (Auto) (0.0-0.2) X10*3/uL Abs Immat Gran (auto) (0.00-0.03) X10*3/uL Absolute Neuts (auto) (2.0-8.3) x10*3/uL Absolute Nucleated RBC (0.0-0.012) X10*3/uL Nucleated RBC % (auto) (0.0-0.2) /100WBC PT (10.0-13.1) SEC INR (0.9-1.1) APTT (26.0-36.4) SEC Sodium (135-145) mmol/L Potassium (3.3-5.1) mmol/L Chloride (96-108) mmol/L Carbon Dioxide (22-29) mmol/L Anion Gap (12-20) BUN (9-16) mg/dL Creatinine (0.5-1.4) mg/dL Estim Creat Clear Calc Estimated GFR Random Glucose (60-115) mg/dL Calcium (8.4-10.2) mg/dL Total Bilirubin (0.0-1.0) mg/dL AST (5-31) U/L ALT (0-31) U/L Alkaline Phosphatase (39-117) U/L Troponin I High Sens 4.8 (<3.5-17.0) ng/L Total Protein (6.5-8.0) g/dL Albumin (3.5-5.0) g/dL Lipase (8-78) U/L Urine Color Urine Appearance Urine pH (5.0-8.0) Ur Specific [place] (1.005-1.025) Urine Protein (Neg-Trace) mg/dL Urine Glucose (UA) (Negative) mg/dL Urine Ketones (Negative) mg/dL Urine Blood (Negative) Urine Nitrite (Negative) Ur Leukocyte Esterase (Negative) COVID-19 ([facility]) (Negative) COVID-19 Clin Com ECG Data Interpretation: Sinus tachycardia. Ventricular rate 106. Pr interval 156. QRS 80. QTC 425. Negative STEMI Discharge Plan Discharge Clinical Impression: GERD (gastroesophageal reflux disease), Abdominal pain Patient Disposition: Home, Self-Care Instructions: Gastroesophageal Reflux Disease (ED), Abdominal Pain (ED) Additional Instructions: Return to the ED for any worsening abdominal pain, chest pain, shortness of br eath, coughing up blood, vomiting blood, rectal bleeding, dysuria, hematuria, leg swelling, inability to tolerate solid food/liquid, or any other concerning symptoms. Please follow with primary care provider and your sales and leasing agent Dr. Roman Prescriptions: New famotidine [Pepcid] 20 mg tablet 20 mg PO BID 10 Days Qty: 20 0RF oxycodone 5 mg tablet 5 mg PO TID PRN (Reason: pain) 3 Days Qty: 9 0RF Rx Instructions: Partial Fill upon patient request. Side effect is drowsiness. No Action losartan 25 mg tablet 25 mg PO DAILY 90 Days Qty: 90 2RF ipratropium-albuterol 0.5 mg-3 mg(2.5 mg base)/3 mL solution for nebulization 3 ml inhalation Q6H PRN (Reason: wheezing) Qty: 180 2RF (DME) pen needle, diabetic [Comfort EZ Pen Ponce] 31 gauge x 5/16 needle See Rx Instructions .ROUTE .MEDSUPPLY Qty: 200 11RF Rx Instructions: Use 1 pen needle 6 times a day (DME) lancets [FreeStyle Lancets] 28 gauge misc See Rx Instructions .Route Qty: 100 3RF Rx Instructions: Use 1 lancet once a day lamotrigine 25 mg tablet 25 mg PO BID 90 Days Qty: 180 1RF albuterol sulfate 90 mcg/actuation HFA aerosol inhaler 2 puff PO Q4H PRN (Reason: for wheezing) Qty: 8.5 2RF pregabalin [Lyrica] 200 mg capsule 200 mg PO BEDTIME Qty: 30 3RF trazodone 100 mg tablet 100 mg PO BEDTIME 90 Days Qty: 90 0RF (DME) FreeStyle Lite Strips Strip MISCELLANEOUS DAILY Qty: 50 1RF Rx Instructions: Use 1 test strip once a day dicyclomine 10 mg capsule 10 mg PO TID PRN (Reason: abdominal pain) 30 Days Qty: 30 1RF pantoprazole 40 mg tablet,delayed release (DR/EC) 40 mg PO BID 90 Days Qty: 180 0RF sucralfate [Carafate] 100 mg/mL suspension 10 ml PO BID PRN (Reason: GERD) 15 Days Qty: 300 0RF pregabalin 150 mg capsule 150 mg PO .COMPLEX Qty: 30 3RF Rx Instructions: 150 mg orally one cap daily in AM; letrozole 2.5 mg Tablet 2.5 mg PO DAILY Qty: 90 4RF aspirin 81 mg tablet,delayed release (DR/EC) 81 mg PO DAILY tizanidine 2 mg tablet 1 tab PO BEDTIME PRN (Reason: muscle spasm) Trulicity 1.5 mg/0.5 mL pen injector 0.5 ml subcut WE insulin aspart U-100 [Novolog Flexpen U-100 Insulin] 100 unit/mL (3 mL) insulin pen See Protocol subcut TIDAC Protocol: Insulin Correction Scale Less than or equal to 110 ---- Give (units): 0 111 to 150 Give (units): 0 151 to 200 Give (units): 2 201 to 250 Give (units): 4 251 to 300 Give (units): 6 301 to 350 Give (units): 8 Greater than 350 Give (units): 10 Call MD if Blood Glucose > : 350 Orencia ClickJect 125 mg/mL auto-injector 125 mg subcut SA ondansetron 4 mg tablet,disintegrating 4 mg PO Q8H PRN (Reason: nausea and vomiting) Qty: 14 0RF nitroglycerin 0.4 mg tablet, sublingual 0.4 mg sublingual Q5M PRN (Reason: Chest Pain) atorvastatin 80 mg tablet 80 mg PO DAILY 90 Days Qty: 90 1RF Rx Instructions: patient lost recent RX, please fill this as emergency RX this one time metoprolol tartrate 25 mg tablet 12.5 mg PO BID 90 Days Qty: 90 1RF Rx Instructions: Patient recently lost her Rx, please fill this rx as an emergency release. Thanks Brilinta 90 mg tablet 90 mg PO BID 90 Days Qty: 180 1RF Rx Instructions: Please fill Rx today, patient lost previous RX, fill as emergency this one time Xiidra 5 % dropperette 1 drp ophthalmic (eye) BID prednisone 5 mg tablet 5 mg PO BID 14 Days Qty: 28 1RF Rx Instructions: Prednisone 5 mg bid for 10 days , the 5 mg once a day azithromycin 250 mg tablet 250 mg PO 3XW MDD Cough /Asthma 10 Days Qty: 5 1RF erythromycin 5 mg/gram (0.5 %) ointment 0 mg ophthalmic (eye) prednisone 20 mg tablet 20 mg PO BID Referrals: Ruth Roman MD [Physician] - (GERD. Abdominal pain) Adela Gipson MD [Primary Care Provider] - (GERD & abdominal pain) Interventions: ED Discharge Assessment Last Done: 07/05/22 21:26 Discharge Date/Time: 07/05/22 21:27 Print Language: Yi
[2022-07-05] MEDS: Magnesium Hydrox/Alum Hydrox 30 ML ORAL.SUSP PO (15:29)
[2022-07-05] MEDS: Lidocaine HCl Viscous 2 % 15 ML SOLUTION MUCOUS MEM (15:29)
[2022-07-05 15:40] LABS: INTERNATIONAL NORM RATIO 1.1 (0.9-1.1)
[2022-07-05 15:42] LABS: Partial Thromboplastin Time 34.1 SEC (26.0-36.4)
[2022-07-05 15:45] LABS: Troponin-I High Sensitivity < 3.5 ng/L (<3.5-17.0)
[2022-07-05 15:46] VITALS: RESP 16
[2022-07-05] MEDS: Famotidine/PF 20 MG/2 ML VIAL IVPUSH (15:46)
[2022-07-05] MEDS: Morphine Sulfate 4 MG/ML CARTRIDGE IVPUSH ×2 (15:46→17:42)
[2022-07-05 16:02] LABS: Lipase 50 U/L (8-78)
[2022-07-05] MEDS: Albuterol/Iprat 2.5/0.5MG 3 ML AMPUL.NEB INHALE (16:15)
[2022-07-05 16:18] VITALS: PULSE 109; RESP 20; O2SAT 98
--- NOTE | 2022-07-05 17:42 | PC.NURSE ---
pt a&ox3, medicated per provider order for 8/10 abd pain. pt pending ED provider.
[2022-07-05] MEDS: iohexoL 350 MG/ML 100 ML INFUS..BTL IV (19:22)
[2022-07-05 21:11] LABS: Troponin-I High Sensitivity 4.8 ng/L (<3.5-17.0)
== END 2022-07-05 21:27 | disposition home or self-care (01) ==
PROVIDERS: Physician Assistant; Emergency Provider Emergency Medicine Emergency Medical Services; PCP Internal Medicine
DX: K21.9 Gastro-esophageal reflux disease without esophagitis (principal); R10.10 Upper abdominal pain, unspecified; Z20.822 Contact with and (suspected) exposure to COVID-19; E11.9 Type 2 diabetes mellitus without complications; I10 Essential (primary) hypertension; E78.5 Hyperlipidemia, unspecified; F17.210 Nicotine dependence, cigarettes, uncomplicated; Z79.4 Long term (current) use of insulin; Z79.82 Long term (current) use of aspirin; Z79.02 Long term (current) use of antithrombotics/antiplatelets; Z79.899 Other long term (current) drug therapy
CPT/HCPCS: 36415; 71045; 74177; 80053; 81003; 83690; 84484; 85025; 85610; 85730; 87635; 93005; 94640; 96374; 96375; 96376; 99212; 99284; 99285; J2270; Q9967

== ENCOUNTER → 2022-07-12 09:50 | Outpatient (BNVA) | payer MEDICARE, MEDICAID, SELFPAY ==
[2022-07-02 13:53] VITALS: BP 100/64; BP 102/48; BP 110/70; BMI 25.5
== END ==
PROVIDERS: PCP Internal Medicine; Visit Provider Physician Assistant
DX: M75.82 Other shoulder lesions, left shoulder (principal)
CPT/HCPCS: 99202

== ENCOUNTER → 2022-07-16 09:13 | Outpatient (BNVA) | payer MEDICARE, MEDICAID, SELFPAY ==
[2022-09-19 10:26] VITALS: BP 100/64; BP 102/48; BP 110/70; BMI 25.5
== END ==
PROVIDERS: PCP Internal Medicine; Referring Provider Internal Medicine; Visit Provider Internal Medicine Gastroenterology
DX: K21.9 Gastro-esophageal reflux disease without esophagitis (principal); R13.10 Dysphagia, unspecified; K52.9 Noninfective gastroenteritis and colitis, unspecified; K59.09 Other constipation; R63.4 Abnormal weight loss; R10.11 Right upper quadrant pain; K57.30 Diverticulosis of large intestine without perforation or abscess without bleeding; R14.0 Abdominal distension (gaseous); Z87.19 Personal history of other diseases of the digestive system; Z12.11 Encounter for screening for malignant neoplasm of colon; Z86.19 Personal history of other infectious and parasitic diseases
CPT/HCPCS: 99212

== ENCOUNTER → 2022-07-19 08:55 | Outpatient (BNVA) | payer MEDICARE, MEDICAID, SELFPAY ==
[2022-07-02 13:53] VITALS: BP 100/64; BP 102/48; BP 110/70; BMI 25.5
== END ==
PROVIDERS: PCP Internal Medicine; Visit Provider Physician Assistant
DX: M75.82 Other shoulder lesions, left shoulder (principal)
CPT/HCPCS: 20610; 99212; J1020

== ENCOUNTER 2022-08-06 09:47 | Outpatient (REF) | payer MEDICARE, MEDICAID, SELFPAY ==
[2022-07-02 13:53] VITALS: BP 100/64; BP 102/48; BP 110/70; BMI 25.5
[2022-08-06 10:55] LABS: Hemoglobin 13.9 g/dl (12.0-16.0); Mean Corpuscular HGB Conc 32.3 g/dl (31.0-35.0); Mean Corpuscular Hemoglobin 28.3 pg (27.0-33.0); Mean Corpuscular Volume 87.6 fL (80.0-98.0); Mean Platelet Volume 10.5 fL (9.4-12.3); Platelet Count 310 X10*3/uL (160-400); Red Blood Count 4.91 X10*6/uL (4.20-5.50); Red Cell Distribution Width 14.4 % (11.0-16.0); White Blood Count 9.5 X10*3/uL (4.8-10.8)
[2022-08-06 10:55] LABS: Appearance Urine Clear; Color Urine Yellow; Glucose Urine UA Negative (Negative); Leukocyte Esterase Urine Trace (Negative); Nitrite Urine Negative (Negative); PH 5.5 (5.0-9.0); UMIC TRIGGER UA YES; Urine Blood Negative (Negative); Urine Ketones Negative (Negative); Urine Protein Negative (Neg-Trace)
[2022-08-06 10:59] LABS: Bacteria Urine None Seen (None Seen); Hyaline Casts Urine 0-2 /LPF (0-2); RBC Urine 0-2 /HPF (0-2); Squamous Epithelial Cell Urine 0-2 /HPF (0-2); WBC Urine 0-5 /HPF (0-5)
[2022-08-06 11:36] LABS: Albumin Level 3.9 g/dL (3.5-5.0); Anion Gap 17 (12-20); Blood Urea Nitrogen 13 mg/dL (9-16); Calcium 9.1 mg/dL (8.4-10.2); Carbon Dioxide 23 mmol/L (22-29); Chloride 105 mmol/L (96-108); Estimated Glomerular Filt Rate > 60; Magnesium 1.8 mg/dL (1.6-2.6); Phosphorus 3.3 mg/dL (2.7-4.5); Potassium 4.6 mmol/L (3.3-5.1); Sodium 140 mmol/L (135-145)
[2022-08-06 11:39] LABS: Creatinine Urine 171.39 mg/dL; Protein/Creatinine Ratio, Ur 0.06 (<0.2); Total Protein Urine Random 11 mg/dL (<12)
[2022-08-06 11:43] LABS: Vitamin D 25-OH Total 38.3 ng/mL (>30)
[2022-08-07 12:47] LABS: Calcium (PTHI) 9.1 mg/dL (8.6-10.4); PTHI 58 pg/mL (16-77)
== END 2022-08-06 09:48 | disposition home or self-care (01) ==
LOC: HO.LAB 09:47
PROVIDERS: PCP Internal Medicine; Visit Provider Internal Medicine Nephrology
DX: E11.22 Type 2 diabetes mellitus with diabetic chronic kidney disease (principal); N18.32 Chronic kidney disease, stage 3b
CPT/HCPCS: 36415; 80051; 81001; 82040; 82043; 82306; 82310; 82565; 83735; 83970; 84100; 84156; 84520; 85027; 87086

== ENCOUNTER → 2022-08-07 15:03 | Outpatient (BNVA) | payer MEDICARE, MEDICAID, SELFPAY ==
[2022-07-02 13:53] VITALS: BP 100/64; BP 102/48; BP 110/70; BMI 25.5
== END ==
PROVIDERS: PCP Internal Medicine; Visit Provider Internal Medicine
DX: J44.9 Chronic obstructive pulmonary disease, unspecified (principal); J45.909 Unspecified asthma, uncomplicated; J30.9 Allergic rhinitis, unspecified; M05.9 Rheumatoid arthritis with rheumatoid factor, unspecified; Z87.891 Personal history of nicotine dependence
CPT/HCPCS: 99212

== ENCOUNTER 2022-08-15 12:51 | Outpatient (RCR) | payer MEDICARE, MEDICAID, SELFPAY ==
[2022-07-02 13:53] VITALS: BP 100/64; BP 102/48; BP 110/70; BMI 25.5
== END 2022-08-21 10:23 | disposition home or self-care (01) ==
LOC: HO.PT 12:51
PROVIDERS: Visit Provider Physician Assistant
DX: M75.82 Other shoulder lesions, left shoulder (principal)
CPT/HCPCS: 97161

== ENCOUNTER 2022-08-16 06:21 | Day surgery (SDC) | payer MEDICARE, MEDICAID, SELFPAY ==
[2022-07-02 13:53] VITALS: BP 100/64; BP 102/48; BP 110/70; BMI 25.5
[2022-08-10 12:26] VITALS: BMI 24.6
--- NOTE | 2022-08-15 09:07 | P.CONAN_ITS ---
Documented by User: Chelsie Leon NP 08/15/22 09:20 HPI - Anesthesia Eval Consult details Narrative: 62yo F for Bronchoscopy Fiberoptic Follow [facility] [place] cardiology - last office visit 05/2022 - CAD, NSTEMI 12/2021 with cath and overlapping SERENITY, PAD Prednisone daily s/p EGD 05/2022 with MAC PMFSH Active Problems Active Problems: All Active Problems (Updated 08/15/22 @ 07:35 by Jacque Rawls RN) Cough (Acute) Allergic rhinitis (Acute) Colitis (Acute) Asthma (Acute) COPD (chronic obstructive pulmonary disease) (Acute) Vulvar abscess (Acute) COVID-19 (Acute) T2DM (type 2 diabetes mellitus) (Acute) Breast cancer (Acute) History of ischemic colitis (Acute) Chronic constipation (Acute) Colon cancer screening (Acute) History of Helicobacter pylori infection (Acute) Hepatitis A test positive (Acute) Breast cancer (Acute) Change in bowel habits (Acute) Abdominal bloating (Acute) Diverticulosis of colon (Acute) Left radial head fracture (Acute) Soft tissue injury of left wrist (Acute) Allergic rhinitis (Acute) Varicose veins of right lower extremity with inflammation (Acute) Raynauds disease (Acute) Close exposure to 2019-nCoV (Acute) Migraine (Acute) Neck pain (Acute) Back pain (Acute) Acute tension headache (Acute) Hypertensive urgency (Acute) Left arm weakness (Acute) CVA (cerebral vascular accident) (Acute) Elevated troponin (Acute) NSTEMI (non-ST elevated myocardial infarction) (Acute) Diabetes mellitus (Acute) Stented coronary artery (Acute) CVA (cerebral vascular accident) (Acute) RUQ abdominal pain (Acute) GERD (gastroesophageal reflux disease) (Acute) Dysphagia (Acute) Weight loss (Acute) Tendonitis of left rotator cuff (Acute) Abdominal pain (Acute) COPD exacerbation (Acute) Hyperkalemia (Acute) Hospital discharge follow-up (Acute) Colitis (Acute) H/O cardiac catheterization (Acute) Breast pain, right (Acute) Rash (Acute) Bloody diarrhea (Acute) PAD (peripheral artery disease) (Acute) Hyperlipidemia LDL goal <100 (Acute) Infiltrating ductal carcinoma of left breast, stage 2 (Acute) Insomnia (Acute) Dyslipidemia (Acute) Bipolar 1 disorder, depressed (Acute) Cough (Acute) Restrictive airway disease (Acute) Vitamin D deficiency (Acute) Osteoporosis (Acute) Hyperparathyroidism (Acute) Thyroid nodule (Acute) Fibromyalgia (Acute) Seropositive rheumatoid arthritis (Acute) Reactive airways dysfunction syndrome (Acute) Allergic rhinitis (Acute) Irritable bowel (Acute) Anxiety (Acute) Bronchial asthma (Acute) Diabetes type 2, uncontrolled (Acute) Past Medical History Medical History (Updated 08/15/22 @ 07:35 by Jacque Rawls, RN) Allergic rhinitis Anxiety Atherosclerotic cardiovascular disease Bipolar 1 disorder, depressed Bloody diarrhea Breast pain, right Bronchial asthma Colitis COPD (chronic obstructive pulmonary disease) COPD exacerbation Cough Depression Diabetes type 2, uncontrolled Dyslipidemia Fibromyalgia Hospital discharge follow-up Hyperkalemia Hyperlipidemia LDL goal <100 Hyperparathyroidism Hypertension Hypothyroid IDDM (insulin dependent diabetes mellitus) Infiltrating ductal carcinoma of left breast, stage 2 Insomnia Irritable bowel Osteoporosis PAD (peripheral artery disease) Rash Reactive airways dysfunction syndrome Restrictive airway disease Seropositive rheumatoid arthritis Thyroid nodule Vitamin D deficiency Family History Family History Mother Diabetes HTN (hypertension) Uterus cancer Malignant tumor of head Breast cancer Father Diabetes HTN (hypertension) CVD (cardiovascular disease) Heart problem Maternal Aunt Breast cancer Brother Myocardial infarction S/P CABG x 4 Family/Other FH: mental illness Family/Other Lung cancer Other Mental health disorder Surgical History Surgical History (Updated 08/10/22 @ 11:59 by Monica Segovia, JAQUELINE) H/O cardiac catheterization H/O: hysterectomy History of bunionectomy of both great toes History of colonoscopy History of esophagogastroduodenoscopy (EGD) History of lumpectomy of left breast History of pubovaginal sling History of tubal ligation Hx of endoscopy History of Problems with Anesthesia: No Social History Social History Household Members: Family Household Members Other:: sister Housing: Apartment Are you a primary senior care manager to a significant other at home: No Do you presently have visiting nurse or other home services: Yes (sister=senior information systems architect) Alcohol intake: never Patient Tobacco Use Status: Current everyday Tobacco user Tobacco use type: Cigarette Cigarettes Per Day: 2 Years Smoked: 50 +/- e-Cigarette/Vaping Use: Former Use Second Hand Smoke Exposure: Yes Advance Directives: Yes Advance Directives Information Provided: No Advance Directives on File: Yes Advance Directives Date on File: 12/22/21 service: No Current occupational status: disabled Current occupation: rt handed Cognitive needs: No Hearing needs: No Vision needs: No Meds Allergies Allergy/AdvReac Type Severity Reaction Status Date / Time dog dander [DOGS] Allergy Intermediate Respiratory Verified 08/07/22 15:42 distress ibuprofen [Ibuprofen] Allergy Intermediate STOMACH Verified 08/07/22 15:42 UPSET, abdominal pain, nausea and vomiting shellfish derived Allergy Intermediate Hives Verified 08/07/22 15:42 etanercept [From Enbrel] AdvReac Intermediate Facial Verified 08/07/22 15:42 Swelling metformin AdvReac Intermediate diarrhea Verified 08/07/22 15:42 metronidazole [From FLAGYL] AdvReac Intermediate DIARRHEA Verified 08/07/22 15:42 prednisone AdvReac Intermediate hallucinations, Verified 08/07/22 15:42 higher than 20 Home Medications Medication Instructions Recorded Confirmed Last Taken Type tizanidine 2 mg tablet 1 tab PO BEDTIME PRN muscle spasm 12/26/21 08/10/22 Unk nown History nitroglycerin 0.4 mg sublingual 0.4 mg sublingual Q5M PRN Chest 01/03/22 08/10/22 Unknown History tablet Pain lifitegrast 5 % eye drops in a 1 drp ophthalmic (eye) BID 06/11/22 08/10/22 06/27/22 History dropperette (Xiidra) Exam Exam Date and Time: August 15, 2022 0907 Height,Weight and Vital Signs: Height 4 ft 8 in Weight 49.895 kg Pertinent Lab Results Pertinent Lab Results: Laboratory Tests 08/06/22 08/06/22 10:02 10:02 WBC 9.5 Hgb 13.9 Hct 43.0 Plt Count 310 Sodium 140 Potassium 4.6 Chloride 105 Carbon Dioxide 23 BUN 13 D Creatinine 0.90 Narrative Narrative: EKG 06/2022 Vent. Rate : 106 BPM ? ? Atrial Rate : 106 BPM ?? P-R Int : 156 ms? QRS Dur : 080 ms ? ? QT Int : 320 ms ? ? ? P-R-T Axes : 078 084 072 degrees ?? QTc Int : 425 ms ? Sinus tachycardia Otherwise normal ECG When compared with ECG of 27-JUN-2022 19:10, No significant change was found ECHO 01/2022 Conclusions: - The left ventricular systolic function is normal.? The ? calculated ejection fraction is 65% by biplane method. ? - There is no evidence of regional wall motion abnormalities.? ? Cardiac Cath 12/26/21 left main normal, lad mild luminal irregularities, less than 30%, mid LAD bridge, left circumflex proximal 80% stenosis SERENITY placed, left circumflex distal 70% stenosis SERENITY placed, RCA mild luminal irregularities, less than 30% Assessment and Plan Assessment Anesthesia Assessment: Chart Reviewed Final Anesthetic Review History of Problems with Anesthesia: No Documented by User: Rad Harris MD 08/16/22 07:53 [facility] Past Medical History Medical History (Updated 08/15/22 @ 07:35 by Jacque Rawls RN) Allergic rhinitis Anxiety Atherosclerotic cardiovascular disease Bipolar 1 disorder, depressed Bloody diarrhea Breast pain, right Bronchial asthma Colitis COPD (chronic obstructive pulmonary disease) COPD exacerbation Cough Depression Diabetes type 2, uncontrolled Dyslipidemia Fibromyalgia Hospital discharge follow-up Hyperkalemia Hyperlipidemia LDL goal <100 Hyperparathyroidism Hypertension Hypothyroid IDDM (insulin dependent diabetes mellitus) Infiltrating ductal carcinoma of left breast, stage 2 Insomnia Irritable bowel Osteoporosis PAD (peripheral artery disease) Rash Reactive airways dysfunction syndrome Restrictive airway disease Seropositive rheumatoid arthritis Thyroid nodule Vitamin D deficiency Family History Family History Mother Diabetes HTN (hypertension) Uterus cancer Malignant tumor of head Breast cancer Father Diabetes HTN (hypertension) CVD (cardiovascular disease) Heart problem Maternal Aunt Breast cancer Brother Myocardial infarction S/P CABG x 4 Family/Other FH: mental illness Family/Other Lung cancer Other Mental health disorder Family history of problems with anesthesia: No Surgical History Surgical History (Updated 08/10/22 @ 11:59 by Monica Segovia RN) H/O cardiac catheterization H/O: hysterectomy History of bunionectomy of both great toes History of colonoscopy History of esophagogastroduodenoscopy (EGD) History of lumpectomy of left breast History of pubovaginal sling History of tubal ligation Hx of endoscopy Social History Social History Household Members: Family Household Members Other:: sister Housing: Apartment Are you a primary senior care manager to a significant other at home: No Do you presently have visiting nurse or other home services: Yes (sister=senior information systems architect) Alcohol intake: never Patient Tobacco Use Status: Current everyday Tobacco user Tobacco use type: Cigarette Cigarettes Per Day: 2 Years Smoked: 50 +/- e-Cigarette/Vaping Use: Former Use Second Hand Smoke Exposure: Yes Advance Directives: Yes Advance Directives Information Provided: No Advance Directives on File: Yes Advance Directives Date on File: 12/22/21 service: No Current occupational status: disabled Current occupation: rt handed Cognitive needs: No Hearing needs: No Vision needs: No Meds Allergies Allergy/AdvReac Type Severity Reaction Status Date / Time dog dander [DOGS] Allergy Intermediate Respiratory Verified 08/07/22 15:42 distress ibuprofen [Ibuprofen] Allergy Intermediate STOMACH Verified 08/07/22 15:42 UPSET, abdominal pain, nausea and vomiting shellfish derived Allergy Intermediate Hives Verified 08/07/22 15:42 etanercept [From Enbrel] AdvReac Intermediate Facial Verified 08/07/22 15:42 Swelling metformin AdvReac Intermediate diarrhea Verified 08/07/22 15:42 metronidazole [From FLAGYL] AdvReac Intermediate DIARRHEA Verified 08/07/22 15:42 prednisone AdvReac Intermediate hallucinations, Verified 08/07/22 15:42 higher than 20 Home Medications Medication Instructions Recorded Confirmed Last Taken Type tizanidine 2 mg tablet 1 tab PO BEDTIME PRN muscle spasm 12/26/21 08/10/22 Unknown History nitroglycerin 0.4 mg sublingual 0.4 mg sublingual Q5M PRN Chest 01/03/22 08/10/22 Unknown History tablet Pain lifitegrast 5 % eye drops in a 1 drp ophthalmic (eye) BID 06/11/22 08/10/22 06/27/22 History dropperette (Xiidra) Exam Airway Mallampati Class: II TM Dist: >3cm Neck ROM: Full Loose/Missing/Broken Teeth: No Heart: rrr Lungs: clear Assessment and Plan Final Anesthetic Review Family History of Problems with Anesthesia: No NPO: Yes ASA Class: IV Final Preanesthetic Review: No Changes in Pt Med Stat, Meds/Allgs Chart Reviewed, Consent Obtained/Reviewed and Anes Risks/Benef Reviewed Patient Risk: Intermediate Procedure Risk: Low Anesthetic Plan Anesthetic Plan: GA and MAC: Disposition: Standard PACU
[2022-08-16 06:41] VITALS: BP 121/93; PULSE 117; RESP 18; TEMP 36.3; O2SAT 96
[2022-08-16 06:45] VITALS: BMI 22.6
[2022-08-16 06:53] LABS: Glucose, Whole Blood 167 mg/dL (60-115)
[2022-08-16] MEDS: Lactated Ringers 1,000 ML 50 ML IVCONT (07:17)
[2022-08-16 07:27] VITALS: PULSE 96; RESP 18; O2SAT 98
[2022-08-16] MEDS: Albuterol Sulfate (0.083%) 2.5 MG/3 ML VIAL.NEB INHALE (07:27)
--- NOTE | 2022-08-16 07:52 | MHC.SHP ---
Pre-Procedural Eval Section A Date of Service: 08/16/22 The patient is an INPATIENT: No Changes since office visit: No Cold of Flu in the past 2 weeks, No New Medical Problems, No Changes in Medication and No Patient answered all questions The History & Physical has been completed within 30 days and I have reviewed it.: No Section B Chief Complaint: Acute cough Details of Present Illness: 62 y/o woman with severe persistent cough. Not responding to conventional therapy. Feels like she is not getting air into her trachea. Relevant Family History (Specify if Yes): No Relevant Social History: None Present Medications: see Short Stay Collaborative assessment Medical History: Significant History Allergies: Allergies Allergy/AdvReac Type Severity Reaction Status Date / Time dog dander [DOGS] Allergy Intermediate Respiratory Verified 08/07/22 15:42 distress ibuprofen [Ibuprofen] Allergy Intermediate STOMACH Verified 08/07/22 15:42 UPSET, abdominal pain, nausea and vomiting shellfish derived Allergy Intermediate Hives Verified 08/07/22 15:42 etanercept [From Enbrel] AdvReac Intermediate Facial Verified 08/07/22 15:42 Swelling metformin AdvReac Intermediate diarrhea Verified 08/07/22 15:42 metronidazole [From FLAGYL] AdvReac Intermediate DIARRHEA Verified 08/07/22 15:42 prednisone AdvReac Intermediate hallucinations, Verified 08/07/22 15:42 higher than 20 Review of Systems Sugical H&P ROS: Negative: Constitution, Cardiovascular, Neurological, Psychiatric, Hem-Onc, Gastrointestinal, Genitourinary, Integumentary and Endocrine and Yes, Specify: Respiratory, Allergic/Immunologic and Musculoskeletal Exam Surgical H&P Exam: Normal: HEENT, Normal: Heart, Normal: Lungs, Normal: Extremities, Normal: Abdomen and Normal: Skin Plan Diagnosis/Plan: Unchanged (bronchoscopy) I have reviewed the history and physical and performed a pertinent physical examination on my patient. No changes have occurred unless specified.
[2022-08-16 08:35] VITALS: BP 107/67; PULSE 106; RESP 32; TEMP 37.1; O2SAT 98
[2022-08-16 08:50] VITALS: BP 112/66; PULSE 97; RESP 24; TEMP 36.8; O2SAT 96
--- NOTE | 2022-08-16 09:08 | P.BOP_ITS ---
Brief Operative Note Date of Service: 08/16/22 Pre-op diagnosis: cough Post-op diagnosis: other (laryngomalecia, bronchomalecia, RLL endobronchial lesion, cough) Procedure: Bronchoscopy with biopsy, washings and brushing Surgeon: Joseph Carmona MD Anesthesia: MAC Was an Commercial Roofer used for this Procedure?: No Estimated blood loss (mL): 0 Pathology: other (RLL ENDOBRONCHIAL BIOPSIES) Condition: stable Disposition: same day
--- NOTE | 2022-08-16 10:09 | OP_ITS ---
SURGEON: Joseph Carmona MD PREOPERATIVE DIAGNOSIS: Chronic cough. POSTOPERATIVE DIAGNOSIS: 1. 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 2. Bronchomalacia. 3. Right lower lobe endobronchial lesion. 4. Cough. PROCEDURE PERFORMED: Bronchoscopy with endobronchial biopsies, washings, and brushings. ESTIMATED BLOOD LOSS: COMPLICATIONS: None. ANESTHESIA: MAC. ASSISTANTS: None. SPECIMENS: ASA CLASSIFICATION: 2. IMPRESSION: 1. Successful bronchoscopy with evidence of primarily the laryngeal abnormalities as the main reason for her cough with evidence of laryngomalacia redundant tissue. 2. Significant snoring and likely would benefit from a sleep study. 3. Evidence of bronchomalacia. 4. Bilateral washings sent for cytology, microbiology. 5. Right middle lobe brushings for microbiology. 6. Biopsies of the right lower lobe lesion for pathology. DESCRIPTION OF PROCEDURE: After the patient was adequately sedated with propofol the flexible digital bronchoscope was inserted over the oral airway to the level of the larynx. There appears to be some significant amount of redundant tissue surrounding the vocal cords with some degree of malacia. The vocal cords did move with abduction and abduction, although not completely synchronized with less movement of the left vocal cord. That area also had more redundant tissue. The patient was having significant snoring through out the procedure suggesting that the redundant tissue was causing significant obstruction of the airway as well. After instilling lidocaine, the bronchoscope was then navigated to the level of the trachea where the tracheal rings appeared to be intact with no significant splaying or collapsibility of the airway, although the posterior membrane did have dynamic contractility with coughing. The rest of the tracheobronchial tree was examined to the subsegmental level. The patient did have some evidence of bronchomalacia. She also has some evidence of diverticula suggesting chronic airway disease that was throughout. In addition to that, the patient did have a small raised right lower lobe density, which appeared to be abnormal. It was well demarcated. No other lesions or masses noted. The patient did not have any significant bleeding, and there was just moderate mucus plugging and some mucoid secretions throughout the airways. The bronchoscope was navigated to the right lower lobe where using forceps, endobronchial biopsies were collected of the right lower lobe lesion. Specimens sent to pathology in formalin. The patient also had bronchial washings collected from all the airways and the airways were cleaned out again with some mucus plugs noted. Finally, the bronchoscope was navigated to the right middle lobe where a microscopic brush was introduced for additional microscopic evaluation. The bronchoscope was then removed. The total endoscopic time approximately 12 minutes. The patient tolerated the procedure well. Vital signs were stable throughout the procedure. Again she did have significant snoring. MD ROBERTA Montero/DAVI / [id number]
== END 2022-08-16 09:31 | disposition home or self-care (01) ==
PROVIDERS: Visit Provider Hospitalist
PROC: 0BJ08ZZ Inspection of Tracheobronchial Tree, Via Natural or Artificial Opening Endoscopic (ICD-10-PCS; CPT 31622; principal; 2022-08-16 08:00)
DX: R05.3 Chronic cough (principal); R05.1 Acute cough; J98.09 Other diseases of bronchus, not elsewhere classified; D14.31 Benign neoplasm of right bronchus and lung; Q31.5 Congenital laryngomalacia; J98.4 Other disorders of lung; J44.9 Chronic obstructive pulmonary disease, unspecified; F17.210 Nicotine dependence, cigarettes, uncomplicated; Z20.822 Contact with and (suspected) exposure to COVID-19; Z88.8 Allergy status to other drugs, medicaments and biological substances
CPT/HCPCS: 31623; 31625; 36415; 70490; 71046; 71250; 80053; 82947; 83605; 84145; 84484; 85025; 85610; 87040; 87070; 87116; 87205; 87635; 88112; 88305; 93005; 94640; 96361; 96374; 99284; 99285; J0171; J1100; J2250; J2405; J3010

== ENCOUNTER 2022-08-16 14:17 | Emergency (ER) | payer MEDICARE, MEDICAID, SELFPAY ==
[2022-07-02 13:53] VITALS: BP 100/64; BP 102/48; BP 110/70; BMI 25.5
--- NOTE | ~2022-08-16 | CT_ITS ---
EXAMINATION: CT SOFT TISSUE NECK WITHOUT CONTRAST CLINICAL INFORMATION: History of cough, shortness of breath and tachycardia. COMPARISON: CXR from 08/16/2022. Thyroid ultrasound from 12/13/2020. Head CT from 12/25/2021. TECHNIQUE: Noncontrast multidetector CT imaging examination of the neck is performed. The axial images and multiplanar reformatted images are reviewed. This CT examination was performed using dose optimization techniques as appropriate, variously including the following: *Automated exposure control *Adjustment of mA and/or kV according to patient size (this includes techniques or standardized protocols for targeted exams where dose is matched to indication/reason for exam; i.e. extremities or head) *Use of iterative reconstruction technique DLP: 709 mGy-cm FINDINGS: Parotid glands, submandibular glands, and thyroid gland are normal. The nasopharynx, oral cavity, tongue base, and tonsillar pillars are unremarkable. No contour abnormality within the oral cavity or pharyngeal mucosal space. The parapharyngeal fat planes are preserved. The hypopharynx, epiglottis, and preepiglottic space are normal. Laryngeal structures normal. No fluid collections in the deep soft tissues. Normal sized lymph nodes of the suprahyoid and infrahyoid neck without evidence of lymphadenopathy by size criteria. Chronic encephalomalacia in the partially visualized left occipital lobe. No acute findings within the visualized portion of the brain. Skull base is intact and the mastoid air cells and middle ear cavities are clear. The paranasal sinuses are well aerated. The orbital phelps, globes and retrobulbar soft tissues are unremarkable. Within the cervical spine, there is moderate degenerative disc space narrowing and anterior vertebral osteophyte formation at C6-C7. No spinal canal stenosis. No prevertebral soft tissue swelling. No acute findings in the visualized lung apices. No masses within the visualized superior mediastinum. The esophagus is unremarkable. CT/CT soft tissue neck wo IV con IMPRESSION: * No acute imaging findings within the neck. * No soft tissue mass, abscess or lymphadenopathy. * The pharyngeal airway and trachea are widely patent. * Incidentally noted is moderate discovertebral degenerative change at C6-C7.
--- NOTE | ~2022-08-16 | XR_ITS ---
EXAMINATION: XR CHEST CLINICAL INFORMATION: Cough, upper back pain COMPARISON: 07/05/2022 TECHNIQUE: 2 views of the chest were obtained. FINDINGS: No focal consolidation, pulmonary edema, or pleural effusion. Stable cardiomediastinal silhouette. XR/XR chest 2V IMPRESSION: Unremarkable examination.
--- NOTE | ~2022-08-16 | CT_ITS ---
EXAMINATION: CT CHEST WITHOUT CONTRAST CLINICAL INFORMATION: Shortness of breath. Tachycardia. History of left breast lumpectomy for invasive carcinoma 11/26/2018. COMPARISON: Chest radiograph from 08/16/2022. Chest CT from 06/27/2022. TECHNIQUE: Multidetector volumetric CT imaging of the chest was done. Axial MIP volume rendering provided. Sagittal and coronal reformatted images were obtained. This CT examination was performed using dose optimization techniques as appropriate, variously including the following: *Automated exposure control *Adjustment of mA and/or kV according to patient size (this includes techniques or standardized protocols for targeted exams where dose is matched to indication/reason for exam; i.e. extremities or head) *Use of iterative reconstruction technique Note that Fleischner Society guidelines do not apply to a patient with history of breast carcinoma. DLP: 709 mGy-cm (for the CT exams of the neck and chest) FINDINGS: LUNGS AND PLEURA: Mild centrilobular emphysema. Bronchial phelps are diffusely thickened, as may be observed in the setting of chronic cigarette smoking, bronchitis and/or asthma. Mild patchy groundglass opacities in both lower lobes, new compared to 06/27/2022, could reflect presence of noninfectious or infectious pneumonitis. Chronic mild subpleural reticular opacity of fibrosis is present in the anterior left upper lobe deep left breast. Correlate for remote history of radiation therapy to the left breast. No lung mass or pleural effusion. An old calcified granuloma is present in the anterior left upper lobe (image 84/501, series 11). An old stable 0.3 cm noncalcified nodule or lymph node is present along the right major fissure, unchanged compared to 11/25/2020 (image 205, series 11). Also, there are old stable small noncalcified nodules of the left lower lobe (image 303 and 325, series 11). CARDIOVASCULAR: The heart size is normal. Three-vessel coronary artery atherosclerotic calcification is present. Mild atherosclerotic calcification of the thoracic aorta without aneurysm. Pulmonary arteries are normal in size. No pericardial effusion. MEDIASTINUM AND LOWER NECK: No mediastinal mass. The esophagus has normal wall thickness. No hiatal hernia. LYMPHATICS: No axillary or internal mammary lymphadenopathy. No pathologic sized mediastinal or hilar lymph nodes. UPPER ABDOMEN: There appears to be mild hepatic steatosis. Adrenal glands are normal. No acute findings in the visualized portion of the upper abdomen. SKELETAL AND CHEST WALL: Mild spondylosis of the thoracic spine. No suspicious bone lesions. CT/CT chest wo IV con IMPRESSION: * Mild centrilobular emphysema. Bronchial phelps are chronically thickened. Correlate for history of chronic obstructive pulmonary disease. * Interval development of mild patchy groundglass opacities in lower lobes. This could be secondary to noninfectious or infectious pneumonitis. * Atherosclerotic disease of coronary arteries. No pulmonary edema or pleural effusion.
[2022-08-16 14:32] VITALS: BP 145/95; PULSE 120; RESP 20; O2SAT 97; BMI 22.6
--- OUTSIDE RECORDS SUMMARY | 2022-08-16 15:16 | XMS_ITS | Continuity of Care Document ---
:1960 Author Organization [facility] Address [address] [place] [address]- Care Team Providers Name Role Phone Jose Wasserman MD, Darby Primary Care Physician [place] [facility] [place] - 12/28/[address] [address] Discharge Disposition: A-D/C Home Attending Physician: Kalin Sanchez DO Admitting Physician: Hayden Ramirez MD Referring Physician: Hayden Ramirez MD Allergies, Adverse Reactions, Alerts Substance Reaction Severity Status shellfish Active Flagyl Active Motrin Active Medications Albuterol (Eqv-ProAir HFA) 90 mcg/inh inhalation aerosol USE 1PUFF BY MOUTH 4 TIMES A DAY NEEDED FOR FOR SHORTNESS OF BREATH OR WHEEZING Start Date: 12/26/21 Status: Orderedaspirin 81 mg oral delayed release tablet 81 mg, By Mouth, Daily, # 30 tablet, Refills 0, Tot. Refills 0, Maintenance, 12/28/21 13:05:00 EST, Route to Pharmacy Electronically, [facility], Partial fill upon patient request if the prescription is for a schedule II opioid drug., 14... Start Date: 12/28/21 Stop Date: 01/27/22 Status: Orderedatorvastatin 80 mg oral tablet 1 tablet = 80 mg, By Mouth, Daily at bedtime, # 30 tablet, 0 Refills, Maintenance, 12/28/21 13:07:00EST, Tablet, [facility], Partial fill upon patient request if the prescription is for a schedule II opioid drug., 148, cm, 12/27/21 20:5... Start Date: 12/28/21 Status: OrderedDilaudid Inj 0.5 mg, Injection, IV Push Slowly, Every 3 hours, PRN for Pain , Severe, Routine, 12/26/21 20:56:00 EST Start Date: 12/26/21 Stop Date: 12/29/21 Status: Discontinuedlamotrigine 25 mg oral tablet 25 mg, 1, tablet, By Mouth, 2 times a day, # 180 tablet, Refills 0, Maintenance, 12/26/21 20:32:00 EST, Partial fill upon patient request if the prescription is for a schedule II opioid drug. Start Date: 12/26/21 Status: Orderedleflunomide 20 mg oral tablet 1 tablet = 20 mg, By Mouth, Daily, # 90 tablet, 0 Refills, Maintenance, 12/26/21 20:33:00 EST, Tablet, Partial fill upon patient request if the prescription is for a schedule II opioid drug. Start Date: 12/26/21 Status: Orderedletrozole 2.5 mg oral tablet 1 tablet = 2.5 mg, By Mouth, Daily, # 30 tablet, 0 Refills, Maintenance, 12/26/21 20:34:00 EST, Tablet, Partial fill upon patient request if the prescription is for a schedule II opioid drug. Start Date: 12/26/21 Stop Date: 01/25/22 Status: Orderedlisinopril 5 mg oral tablet 5 mg, Tablet, By Mouth, 12/28/21 9:00:00 EST Start Date: 12/28/21 Stop Date: 12/28/21 Status: Completedlisinopril 5 mg oral tablet 5 mg, 1, tablet, By Mouth, Daily, # 30 tablet, Refills 0, Tot. Refills 0, Maintenance, 12/28/21 13:08:00 EST, Route to Pharmacy Electronically, [facility], Partial fill upon patient request if the prescription is for a schedule II opioid... Start Date: 12/28/21 Status: Orderedmetoprolol 25 mg oral tablet 12.5 mg, 0.5, tablet, By Mouth, 2 times a day, # 30 tablet, Refills 0, Tot. Refills 0, Maintenance, 12/28/21 13:08:00 EST, Route to Pharmacy Electronically, [facility], Partial fill upon patient request if the prescription is for a sched... Start Date: 12/28/21 Status: Orderedmetoprolol 25 mg oral tablet 12.5 mg, Tablet, By Mouth, 12/28/21 9:00:00 EST Start Date: 12/28/21 Stop Date: 12/28/21 Status: Completednitroglycerin 0.4 mg sublingual tablet 1 tablet = 0.4 mg, Sublingual, Every 5 minutes, PRN Chest Pain, # 100 tablet, 0 Refills, Maintenance, 12/28/21 13:08:00 EST, Tablet, [facility], Partial fill upon patient request if the prescription is for a schedule II opioid drug., 148... Start Date: 12/28/21 Status: OrderedNovoLOG FlexPen 100 units/mL injectable solution INJECT 4-8 UNITS SUBCUTANEOUSLY 3 TIMES A DAY WITH MEALS Start Date: 12/26/21 Status: Orderedpregabalin 200 mg oral capsule TAKE 1 CAPSULE BY MOUTH EVERYDAY AT BEDTIME Start Date: 12/26/21 Status: Orderedticagrelor 90 mg oral tablet 1 tablet = 90 mg, By Mouth, 2 times a day, # 60 tablet, 0 Refills, Maintenance, 12/28/21 13:08:00 EST, Tablet, [facility] 3, Partial fill upon patient request if the prescription is for a schedule II opioid drug., 148, cm, 12/27/21 20:55:0... Start Date: 12/28/21 Status: OrderedtiZANidine 2 mg oral tablet TAKE 1 TABLET BY MOUTH AT BEDTIME NEEDED FOR MUSCLE SPASMS Start Date: 12/26/21 Status: OrderedtraZODone 100 mg oral tablet TAKE 1 TABLET BY MOUTH DAILY AT BEDTIME 90 DAYS Start Date: 12/26/21 Status: OrderedTresiba FlexTouch 100 units/mL subcutaneous solution INJECT 46 UNITS DAILY Start Date: 12/26/21 Status: OrderedTrulicity Pen 1.5 mg/0.5 mL subcutaneous solution 0.5 mL = 1.5 mg, Subcutaneous Injection, Every week, 0 Refills, Maintenance, 12/26/21 20:32:00 EST, Solution, Partial fill upon patient request if the prescription is for a schedule II opioid drug. Start Date: 12/26/21 Status: Orderedvarenicline 1mg tablet 1 tablet = 1 mg, By Mouth, 2 times a day, # 56 tablet, 0 Refills, Maintenance, 12/26/21 20:32:00 EST, Tablet, Partial fill upon patient request if the prescription is for a schedule II opioid drug. Start Date: 12/26/21 Status: OrderedVitamin D3 1000 intl units oral tablet 1 tablet = 25 mcg, By Mouth, Daily, # 30 tablet, 0 Refills, Maintenance, 12/26/21 20:34:00 EST, Tablet, Partial fill upon patient request if the prescription is for a schedule II opioid drug. Start Date: 12/26/21 Status: Ordered Problem List Condition Effective Dates Status Health Status Informant Abnormal head CT(Confirmed) Active Hypertensive urgency(Confirmed) Active Migraine(Confirmed) Active NSTEMI (non-ST elevated myocardial Active infarction)(Confirmed) TIA (transient ischemic Active attack)(Confirmed) Vital Signs Most recent to oldest 1 2 3 4 [Reference Range]: Height 148 cm 148 cm 148 cm (12/27/21 8:55 PM) (12/27/21 2:07 PM) (12/27/21 9:14 AM) Weight 59.8 kg 62.1 kg (12/27/21 5:04 AM) (12/26/21 4:03 PM) Oxygen Saturation 95 % 97 % 96 % [94-100 %] (12/28/21 1:00 PM) (12/28/21 11:00 AM) (12/28/21 8:00 AM) Pulse Rate [55-90 bpm] 87 bpm 85 bpm 81 bpm (12/28/21 1:00 PM) (12/28/21 11:00 AM) (12/28/21 8:41 AM) Body Mass Index 28.35 [18.5-24.99] *H* (12/26/21 4:03 PM) Blood Pressure 115/68 mm Hg 122/66 mm Hg 99/57 mm Hg 99/57 mm Hg [90-138/55-84 mm Hg] (12/28/21 1:00 PM) (12/28/21 11:00 AM) (12/28/21 8:41 AM) (12/28/21 8:41 AM) Respiratory Rate 20 br/min 18 br/min 18 br/min [16-30 br/min] (12/28/21 1:51 PM) (12/28/21 1:21 PM) (12/28/21 11:00 A M) Temperature 98.1 DegF 97.8 DegF 97.2 DegF [96.8-100.4 DegF] (12/28/21 1:00 PM) (12/28/21 8:00 AM) (12/28/21 1:57 AM) Mode of Delivery Room air Room air Room air (Oxygen) (12/28/21 1:00 PM) (12/28/21 11:00 AM) (12/28/21 8:00 AM) Blood pressure sites Arm, left Arm, left Arm, left (12/28/21 1:00 PM) (12/28/21 11:00 AM) (12/28/21 8:00 AM) Temperature Route Oral Temporal Temporal (12/28/21 1:00 PM) (12/28/21 8:00 AM) (12/28/21 1:57 AM) Dry Weight 49.5 kg (12/26/21 4:03 PM) Weight Obtained Via Bed scale (12/27/21 5:04 AM) Social History Social History Type Response Smoking Status Former smoker entered on: 06/12/17 Sex
--- OUTSIDE RECORDS SUMMARY | 2022-08-16 15:16 | XMS_ITS | Continuity of Care Document ---
:1960 Author Organization [facility] Address [address] [place] [address] Drive [address] [place] [address]- Care Team Providers Name Role Phone Jose Wasserman MD, Melba Swann Primary Care Physician Encounter [facility] [place] Date(s): 12/07/20 - 03/18/[address] [place] [address] Attending Physician: David REGALADO, Colton Referring Physician: Alison Holman DO Allergies, Adverse Reactions, Alerts Substance Reaction Severity Status shellfish Active Flagyl Active Motrin Active Medications albuterol 90 mcg/inh inhalation powder 2 puffs, Inhalation, Every 4 hours, PRN as needed, # 1 each, 0 Refills, Maintenance, 06/12/17 18:08:19, Powder Start Date: 06/12/17 Status: Orderedamitriptyline 25 mg oral tablet 25 mg, By Mouth, Daily at bedtime, # 90 tablet, Refills 0, Tot. Refills 0, Maintenance, 03/01/17 14:54:15, Route to Pharmacy Electronically, [id number], [facility] Start Date: 03/01/17 Stop Date: 05/30/17 Status: Orderedaspirin 81 mg oral delayed release tablet 81 mg, By Mouth, Daily, Refills 0, Maintenance, 03/01/17 14:54:37 Start Date: 03/01/17 Status: Orderedatorvastatin 40 mg oral tablet = 40 mg, By Mouth, Daily at bedtime, 0 Refills, Maintenance, Tablet Start Date: 03/01/17 Status: Orderedfolic acid 1 mg oral tablet 1 mg, 1, tablet, By Mouth, Daily, # 30 tablet, Refills 0, Maintenance, 06/12/17 18:09:54 Start Date: 06/12/17 Status: Orderedinsulin glargine 100 u/ml subcutaneous solution 0.25 mL = 25 units, Subcutaneous Injection, Daily at bedtime, Please increase glargine to 25u daily while on prednisone this will need to be adjusted by your PCP, 0 Refills, Maintenance, 06/17/17 11:09:46, Injection Start Date: 06/17/17 Status: Orderedlevofloxacin 750 mg oral tablet 1 tablet = 750 mg, By Mouth, Once, please take this tablet tomorrow on 06/18., # 1 tablet, 0 Refills, Soft Stop, 06/17/17 11:09:03, Tablet Start Date: 06/17/17 Status: Orderedlisinopril 20 mg oral tablet 20 mg, By Mouth, Daily, # 60 tablet, Refills 0, Tot. Refills 0, Maintenance, 06/17/17 14:41:09, Route to Pharmacy Electronically, [id number], [facility] Start Date: 06/17/17 Stop Date: 08/16/17 Status: Orderedlithium 300 mg oral tablet, extended release 1 tablet = 300 mg, By Mouth, Daily at bedtime, # 90 tablet, 0 Refills, Maintenance, 06/12/17 18:07:23, ER Tablet Start Date: 06/12/17 Status: Orderedmethotrexate 2.5 mg oral tablet See Instructions, Take 8 tablets by mouth once a week for 30 days, 0 Refills, Maintenance, 06/12/17 18:10:34, Tablet Start Date: 06/12/17 Status: Orderedmirtazapine 15 mg oral tablet 1 tablet = 15 mg, By Mouth, Daily at bedtime, # 30 tablet, 0 Refills, Maintenance, 06/12/17 18:09:10, Tablet Start Date: 06/12/17 Status: Orderedpregabalin 100 mg oral capsule 1 capsule = 100 mg, By Mouth, 2 times a day, # 180 capsule, 0 Refills, Maintenance, 06/12/17 18:49:28, Capsule Start Date: 06/12/17 Status: Orderedpregabalin 25 mg oral capsule 1 capsule = 25 mg, By Mouth, 2 times a day, 0 Refills, Maintenance, 06/12/17 18:49:34, Capsule Start Date: 06/12/17 Status: Orderedranitidine 300 mg oral tablet 1 tablet = 300 mg, By Mouth, 2 times a day, # 30 tablet, 0 Refills, Maintenance, 06/12/17 18:14:18, Tablet Start Date: 06/12/17 Status: OrderedtraZODone 50 mg oral tablet 50 mg, 1, tablet, By Mouth, Daily at bedtime, # 30 tablet, Refills 1, Tot. Refills 1, Maintenance, 03/01/17 14:55:41, Route to Pharmacy Electronically, [id number], [facility] Start Date: 03/01/17 Status: Ordered Problem List Condition Effective Dates Status Health Status Informant Hypertensive urgency(Confirmed) Active Migraine(Confirmed) Active TIA (transient ischemic Active attack)(Confirmed) Social History Social History Type Response Smoking Status Former smoker entered on: 06/12/17 Sex
--- OUTSIDE RECORDS SUMMARY | 2022-08-16 15:16 | XMS_ITS | Continuity of Care Document ---
:1960 Author Organization [facility] Address [address] [place] [phone]- Care Team Providers Name Role Phone Jose Wasserman MD, Darby Primary Care Phys[id number] Date(s): 12/28/21 - 01/27/[address] [address] Attending Physician: Not on Staff, Attending MD Admitting Physician: Not on Staff, Admitting MD Referring Physician: Not on Staff, Referring MD Allergies, Adverse Reactions, Alerts Substance Reaction [...] 12/28/21 13:05:00 EST, Route to Pharmacy Electronically, [facility], Partial fill upon patient request if the prescription is for a schedule II opioid drug., 14... Start Date: 12/28/21 Stop Date: 01/27/22 Status: Orderedatorvastatin 80 mg oral tablet 1 tablet = 80 mg, By Mouth, Daily at bedtime, # 30 tablet, 0 Refills, Maintenance, 12/28/21 13:07:00EST, Tablet, [facility], Partial fill upon patient request if the prescription is for a schedule II opioid drug., 148, cm, 12/27/21 20:5... Start Date: 12/28/21 Status: Orderedlamotrigine 25 mg oral tablet 25 mg, 1, [...] Orderedlisinopril 5 mg oral tablet 5 mg, 1, tablet, By Mouth, Daily, # 30 tablet, Refills 0, Tot. Refills 0, Maintenance, 12/28/21 13:08:00 EST, Route to Pharmacy Electronically, [facility], Partial fill upon patient request if the prescription is for a schedule II opioid... Start Date: 12/28/21 Status: Orderedmetoprolol 25 mg oral tablet 12.5 mg, 0.5, tablet, By Mouth, 2 times a day, # 30 tablet, Refills 0, Tot. Refills 0, Maintenance, 12/28/21 13:08:00 EST, Route to Pharmacy Electronically, [facility], Partial fill upon patient request if the prescription is for a sched... Start Date: 12/28/21 Status: Orderednitroglycerin 0.4 mg sublingual tablet 1 tablet = 0.4 mg, Sublingual, Every 5 minutes, PRN Chest Pain, # 100 tablet, 0 Refills, Maintenance, 12/28/21 13:08:00 EST, Tablet, [facility], Partial fill upon patient request if [...] 0 Refills, Maintenance, 12/28/21 13:08:00 EST, Tablet, [facility], Partial fill upon patient request if [...] Active infarction)(Confirmed) TIA (transient ischemic Active attack)(Confirmed) Social History Social History Type Response Smoking Status Former smoker entered on: 06/12/17 Sex
--- OUTSIDE RECORDS SUMMARY | 2022-08-16 15:16 | XMS_ITS | Continuity of Care Document ---
:1960 Author Organization [address] [place] [address]- Care Team Providers Name Role Phone Davon Chew MD Primary Care Physician Encounter [facility] [place] [id number] Date(s): 02/11/20 - 02/21/[address] [place] [address] [facility] Attending Physician: Admjanay, Alysha Admitting Physician: Admtr, Alysha Referring Physician: Admtr, Ar8 Allergies, Adverse Reactions, Alerts Substance Reaction Severity [...] Maintenance, 03/01/17 14:54:15, Route to Pharmacy Electronically, [id number], [facility] Start Date: 03/01/17 Stop Date: 05/30/17 [...] Maintenance, 06/17/17 14:41:09, Route to Pharmacy Electronically, [id number], [facility] Start Date: 06/17/17 Stop Date: 08/16/17 [...] Maintenance, 03/01/17 14:55:41, Route to Pharmacy Electronically, [id number], [facility] Start Date: 03/01/17 Status: Ordered Problem List Condition Effective Dates Status Health Status Informant Hypertensive urgency(Confirmed) Active Migraine(Confirmed) Active TIA (transient ischemic Active attack)(Confirmed) Social History Social History Type Response Smoking Status Former smoker entered on: 06/12/17 Sex
--- OUTSIDE RECORDS SUMMARY | 2022-08-16 15:16 | XMS_ITS | Continuity of Care Document ---
:1960 Author Organization [facility] Address [address] [place] [address]- Care Team Providers Name Role Phone Jose Wasserman MD, Melba Swann Primary Care Physician [place] [facility] [place](s): 09/15/20 - 09/16/[address] [address]- [facility] Encounter Diagnosis COPD exacerbation (Final) - 09/15/20 Discharge Disposition: A-D/C Home Attending Physician: Darion Goyal MD Admitting Physician: Darion Goyal MD Referring Physician: Not on Staff, Referring [...] Maintenance, 03/01/17 14:54:15, Route to Pharmacy Electronically, [id number], [facility] Start Date: 03/01/17 Stop Date: [...] Maintenance, 06/17/17 14:41:09, Route to Pharmacy Electronically, [id number], [facility] Start Date: 06/17/17 Stop Date: 08/16/17 [...] Maintenance, 03/01/17 14:55:41, Route to Pharmacy Electronically, [id number], [facility] Start Date: 03/01/17 Status: Ordered Problem List Condition Effective Dates Status Health Status Informant Hypertensive urgency(Confirmed) Active Migraine(Confirmed) Active TIA (transient ischemic Active attack)(Confirmed) Results Radiology Reports Exam Date Time Procedure Performing Provider Status 09/15/20 9:24 PM Chest 2 Views Frontal and Lat Sandip , Alliso n; Auth (Verified) Notes:(Chest 2 Views Frontal and Lat) Reason For Exam: AnginaRESULT: Chest 2 Views Frontal and Lat Chest 2 Views Frontal and Lat Hx of Present Illness: pt presents to ED c o sudden onset CP to the center of her chest x 2 hours that worsens with deep breathing. Hx of asthma. denies cardiac hx; Reason: Angina; Clinical Question(s): CHF COMPARISON: 03/12/2019 FINDINGS: LINES AND TUBES: None. LUNGS AND PLEURA: Clear lungs. Normal pulmonary vascularity. No pleural effusion. No pneumothorax. HEART, MEDIASTINUM AND MILA: Unchanged. BONES AND SOFT TISSUES: No acute abnormality. IMPRESSION: No acute abnormality. WSN: [id number] Ordering Physician: Haleigh James Dictated By: Jun Preciado MD Dictated Date/Time: 09/15/20 9:26 pm Reviewed By: Jun Preciado MD Signed By: Jun Preciado MD Signed Date/Time: 09/15/20 9:26 pm Transcribed By: CSB Transcribed Date/Time: 09/15/20 9:25 pm Vital Signs Most recent to oldest 1 2 3 [Reference Range]: Oxygen Saturation [94-100 98 % 98 % 98 % %] (09/16/20 2:40 AM) (09/16/20 12:11 AM) (09/15/20 10:40 PM) Pulse Rate [55-90 bpm] 85 bpm 90 bpm 84 bpm (09/16/20 2:40 AM) (09/16/20 12:11 AM) (09/15/20 10:40 PM) Blood Pressure 120/75 mm Hg 127/75 mm Hg 114/61 mm Hg [90-138/55-84 mm Hg] (09/16/20 2:40 AM) (09/16/20 12:11 AM) ( 10:40 PM) Respiratory Rate [16-30 18 br/min 18 br/min 18 br/mi n br/min] (09/16/20 2:40 AM) (09/16/20 12:11 AM) (09/15/20 11:29 PM) Temperature [96.8-100.4 98.3 DegF 98.3 DegF DegF] (09/15/20 9:02 PM) (09/15/20 8:37 PM) Mode of Delivery (Oxygen) Room air Room air Room a ir (09/16/20 2:40 AM) (09/16/20 12:11 AM) (09/15/20 10:40 PM) Temperature Route Oral (09/15/20 9:02 PM) Social History Social History Type Response Smoking Status Former smoker entered on: 06/12/17 Sex
--- OUTSIDE RECORDS SUMMARY | 2022-08-16 15:16 | XMS_ITS | Continuity of Care Document ---
:1960 Author Organization [facility] Address [address] [place] [address] Drive [address] [place] [address]- Care Team Providers Name Role Phone Davon Chew MD Primary Care Physician Encounter [facility] [place] Date(s): 06/09/20 - 07/09/[address] [place] [address]- [facility] Attending Physician: Admtr, Oseas8 Admitting Physician: Admtr, Alysha Referring Physician: Admtr, [...] Maintenance, 03/01/17 14:54:15, Route to Pharmacy Electronically, [id number], [facility] Start Date: 03/01/17 Stop Date: [...] Maintenance, 06/17/17 14:41:09, Route to Pharmacy Electronically, [id number], [facility] Start Date: 06/17/17 Stop Date: 08/16/17 [...] Maintenance, 03/01/17 14:55:41, Route to Pharmacy Electronically, [id number], [facility] Start Date: 03/01/17 Status: Ordered Problem List Condition Effective Dates Status Health Status Informant Hypertensive urgency(Confirmed) Active Migraine(Confirmed) Active TIA (transient ischemic Active attack)(Confirmed) Social History Social History Type Response Smoking Status Former smoker entered on: 06/12/17 Sex
--- OUTSIDE RECORDS SUMMARY | 2022-08-16 15:16 | XMS_ITS | Continuity of Care Document ---
:1960 Author Organization [address] [place] [address]- Care Team Providers Name Role Phone Jose Wasserman MD, Melba Swann Primary Care Physician Encounter [facility] Date(s): 11/28/20 - 02/18/[address] [place] [id number] Attending Physician: David REGALADO, Colton Referring Physician: [...] Maintenance, 03/01/17 14:54:15, Route to Pharmacy Electronically, [id number], [facility] Start Date: 03/01/17 Stop Date: [...] Maintenance, 06/17/17 14:41:09, Route to Pharmacy Electronically, [id number], [facility] Start Date: 06/17/17 Stop Date: 08/16/17 [...] Maintenance, 03/01/17 14:55:41, Route to Pharmacy Electronically, [id number], [facility] Start Date: 03/01/17 Status: Ordered Problem List Condition Effective Dates Status Health Status Informant Hypertensive urgency(Confirmed) Active Migraine(Confirmed) Active TIA (transient ischemic Active attack)(Confirmed) Social History Social History Type Response Smoking Status Former smoker entered on: 06/12/17 Sex
--- OUTSIDE RECORDS SUMMARY | 2022-08-16 15:16 | XMS_ITS | Continuity of Care Document ---
:1960 Author Organization [address] [place] [phone]- Care Team Providers Name Role Phone Jose Wasserman MD, Darby [id number] Date(s): 03/31/21 - 04/30/[address] [place] [id number] Attending Physician: Admtr, Ar8 Admitting Physician: Admtr, Ar8 Referring Physician: Admtr, Ar8 Allergies, Adverse Reactions, [...] Maintenance, 03/01/17 14:54:15, Route to Pharmacy Electronically, [id number], [facility] Start Date: 03/01/17 Stop Date: 05/30/17 Status: Orderedaspirin 81 mg oral delayed release tablet 81 mg, By Mouth, Daily, Refills 0, Maintenance, 03/01/17 14:54:37 Start Date: 03/01/17 Status: Orderedatorvastatin 40 mg oral tablet = 40 mg, By Mouth, Daily at bedtime, 0 Refills, Maintenance, Tablet Start Date: 03/01/17 Status: Orderedbenzonatate 100 mg oral capsule 1 capsule = 100 mg, By Mouth, 3 times a day, # 21 capsule, 0 Refills, Maintenance, 03/31/21 10:41:00EDT, Capsule, Partial fill upon patient request if the prescription is for a schedule II opioid drug. Start Date: 03/31/21 Stop Date: 04/07/21 Status: Orderedfolic acid 1 mg oral tablet 1 mg, 1, tablet, By Mouth, Daily, # 30 tablet, Refills 0, Maintenance, 06/12/17 18:09:54 Start Date: 06/12/17 Status: Orderedhydroxychloroquine 200 mg oral tablet 200 mg, 1, tablet, By Mouth, Daily, # 180 tablet, Refills 0, Maintenance, 03/31/21 10:40:00 EDT, Partial fill upon patient request if the prescription is for a schedule II opioid drug. Start Date: 03/31/21 Status: Orderedinsulin glargine 100 u/ml subcutaneous solution 0.25 mL = 25 units, Subcutaneous Injection, Daily at bedtime, Please increase glargine to 25u daily while on prednisone this will need to be adjusted by your PCP, 0 Refills, Maintenance, 06/17/17 11:09:46, Injection Start Date: 06/17/17 Status: Orderedletrozole 2.5 mg oral tablet By Mouth, Daily, # 10 tablet, 0 Refills, Maintenance, 03/31/21 10:40:00 EDT, Tablet, Partial fill upon patient request if the prescription is for a schedule II opioid drug. Start Date: 03/31/21 Stop Date: 04/10/21 Status: Orderedlevofloxacin 750 mg oral tablet 1 tablet = 750 mg, By Mouth, Once, please take this tablet tomorrow on 06/18., # 1 tablet, 0 Refills, Soft Stop, 06/17/17 11:09:03, Tablet Start Date: 06/17/17 Status: Orderedlisinopril 20 mg oral tablet 20 mg, By Mouth, Daily, # 60 tablet, Refills 0, Tot. Refills 0, Maintenance, 06/17/17 14:41:09, Route to Pharmacy Electronically, [id number], [facility] Start Date: 06/17/17 Stop [...] 06/12/17 18:09:10, Tablet Start Date: 06/12/17 Status: Orderedomeprazole 20 mg oral delayed release tablet 1 tablet = 20 mg, By Mouth, Daily, # 30 tablet, 0 Refills, Maintenance, 03/31/21 10:39:00 EDT, CR Tablet, Partial fill upon patient request if the prescription is for a schedule II opioid drug. Start Date: 03/31/21 Status: OrderedPredniSONE = 10 mg, By Mouth, Daily, 0 Refills, Maintenance, 03/31/21 10:40:00 EDT, Partial fill upon patient request if the prescription is for a schedule II opioid drug. Start Date: 03/31/21 Status: Orderedpregabalin 100 mg oral capsule 1 [...] 06/12/17 18:14:18, Tablet Start Date: 06/12/17 Status: OrderedSingulair 10 mg oral tablet 10 mg, 1, tablet, By Mouth, Daily, Refills 0, Maintenance, 03/31/21 10:36:00 EDT, Partial fill upon patient request if the prescription is for a schedule II opioid drug. Start Date: 03/31/21 Status: OrderedtraZODone 50 mg oral tablet 50 mg, 1, tablet, By Mouth, Daily at bedtime, # 30 tablet, Refills 1, Tot. Refills 1, Maintenance, 03/01/17 14:55:41, Route to Pharmacy Electronically, [id number], [facility] Start Date: 03/01/17 Status: OrderedVitamin D3 oral tablet 1 tablet = 400 International_Units, By Mouth, Daily, # 30 tablet, 0 Refills, Maintenance, 03/31/21 10:38:00 EDT, Tablet, Partial fill upon patient request if the prescription is for a schedule II opioid drug. Start Date: 03/31/21 Status: Ordered Problem List Condition Effective Dates Status Health Status Informant Hypertensive urgency(Confirmed) Active Migraine(Confirmed) Active TIA (transient ischemic Active attack)(Confirmed) Social History Social History Type Response Smoking Status Former smoker entered on: 06/12/17 Sex
--- OUTSIDE RECORDS SUMMARY | 2022-08-16 15:16 | XMS_ITS | Continuity of Care Document ---
:1960 Author Organization [address] [place] [phone]- Care Team Providers Name Role Phone Jose Wasserman MD, Melba Swann Primary Care Physician Encounter [facility] R [id number] Date(s): 03/31/21 - 04/07/[address] [place] [id number] Attending Physician: David REGALADO, Colton Referring Physician: Alison Hloman DO Allergies, Adverse Reactions, Alerts Substance Reaction [...] Maintenance, 03/01/17 14:54:15, Route to Pharmacy Electronically, [id number], [facility] Start Date: 03/01/17 Stop Date: [...] Maintenance, 06/17/17 14:41:09, Route to Pharmacy Electronically, [id number], [facility] 3 Start Date: 06/17/17 Stop Date: [...] Maintenance, 03/01/17 14:55:41, Route to Pharmacy Electronically, [id number], [facility] 3 Start Date: 03/01/17 Status: OrderedVitamin D3 [...] Migraine(Confirmed) Active TIA (transient ischemic Active attack)(Confirmed) Vital Signs Most recent to oldest [Reference Range]: 1 Height 145 cm (03/31/21 10:28 AM) Weight 61.6 kg (03/31/21 10:28 AM) Pulse Rate [55-90 bpm] 108 bpm *H* (03/31/21 10:28 AM) Body Mass Index [18.5-24.99] 29.3 *H* (03/31/21 10:28 AM) Blood Pressure [90-138/55-84 mm Hg] 135/79 mm Hg (03/31/21 10:28 AM) Respiratory Rate [16-30 br/min] 20 br/min (03/31/21 10:28 AM) Temperature [96.8-100.4 DegF] 97.8 DegF (03/31/21 10:28 AM) Blood pressure sites Arm, right (03/31/21 10:28 AM) Temperature Route Temporal (03/31/21 10:28 AM) Weight Obtained Via Standing scale (03/31/21 10:28 AM) Social History Social History Type Response Smoking Status Former smoker entered on: 06/12/17 Sex
--- OUTSIDE RECORDS SUMMARY | 2022-08-16 15:16 | XMS_ITS | Continuity of Care Document ---
:1960 Author Organization [facility] Address [address] [place] [address]- Care Team Providers Name Role Phone Jose Wasserman MD, Adela Swann Primary Care Physician Encounter 12/30/21 - 01/24/22 [facility] [address] [place], [place] [address] Discharge Disposition: GOALS MET Allergies, Adverse Reactions, Alerts Substance Reaction Severity [...] 12/28/21 13:05:00 EST, Route to Pharmacy Electronically, [facility], Partial fill upon patient request if the prescription is for a schedule II opioid drug., 14... Start Date: 12/28/21 Stop Date: 01/27/22 Status: Orderedatorvastatin 80 mg oral tablet 1 tablet = 80 mg, By Mouth, Daily at bedtime, # 30 tablet, 0 Refills, Maintenance, 12/28/21 13:07:00EST, Tablet, [facility], Partial fill upon patient request [...] 12/28/21 13:08:00 EST, Route to Pharmacy Electronically, [facility], Partial fill upon patient request if the prescription is for a schedule II opioid... Start Date: 12/28/21 Status: Orderedmetoprolol 25 mg oral tablet 12.5 mg, 0.5, tablet, By Mouth, 2 times a day, # 30 tablet, Refills 0, Tot. Refills 0, Maintenance, 12/28/21 13:08:00 EST, Route to Pharmacy Electronically, [facility], Partial fill upon patient request if the prescription is for a sched... Start Date: 12/28/21 Status: Orderednitroglycerin 0.4 mg sublingual tablet 1 tablet = 0.4 mg, Sublingual, Every 5 minutes, PRN Chest Pain, # 100 tablet, 0 Refills, Maintenance, 12/28/21 13:08:00 EST, Tablet, [facility], Partial fill upon patient request [...] 0 Refills, Maintenance, 12/28/21 13:08:00 EST, Tablet, [facility], Partial fill upon patient request [...]
--- OUTSIDE RECORDS SUMMARY | 2022-08-16 15:16 | XMS_ITS | Continuity of Care Document ---
:1960 Author Organization [facility] Address [address] [place] [address] Drive [address] [place] [phone]- Care Team Providers Name Role Phone Davon Chew MD Primary Care Physician [place] [facility] Date(s): 01/05/20 - 03/12/[address] [place] [phone] [facility] Attending Physician: David REGALADO, Colton Referring Physician: [...] Maintenance, 03/01/17 14:54:15, Route to Pharmacy Electronically, [id number], [facility] Start Date: 03/01/17 Stop Date: [...] Maintenance, 06/17/17 14:41:09, Route to Pharmacy Electronically, [id number], [facility] Start Date: 06/17/17 Stop [...] Maintenance, 03/01/17 14:55:41, Route to Pharmacy Electronically, [id number], [facility] Start Date: 03/01/17 Status: Ordered Problem List Condition Effective Dates Status Health Status Informant Hypertensive urgency(Confirmed) Active Migraine(Confirmed) Active TIA (transient ischemic Active attack)(Confirmed) Social History Social History Type Response Smoking Status Former smoker entered on: 06/12/17 Sex
[2022-08-16 15:19] VITALS: BP 149/88; PULSE 116; RESP 20; TEMP 37.8; O2SAT 95
--- NOTE | 2022-08-16 15:21 | ECG_ITS ---
Test Reason : SOB Blood Pressure : / mmHG Vent. Rate : 112 BPM Atrial Rate : 112 BPM P-R Int : 132 ms QRS Dur : 080 ms QT Int : 314 ms P-R-T Axes : 083 079 063 degrees QTc Int : 428 ms Sinus tachycardia Possible Left atrial enlargement Borderline ECG When compared with ECG of 05-JUL-2022 15:45, No significant change was found Referred By: Millicent Hill Electronically Signed By:ALIA THURSTON
--- NOTE | 2022-08-16 15:22 | ED.SOB ---
HPI - SOB/Dyspnea General Chief Complaint: Dyspnea Stated Complaint: Pain in back of neck, chest pain Time Seen by Provider: 08/16/22 15:06 Source: patient Mode of arrival: ambulatory History of Present Illness HPI Narrative: This is 62-year-old female with history of diabetes, breast CA, COPD who comes in today after having had a bronchoscopy earlier where she was informed that she had multiple masses. Patient states that she felt fine when she got home and then at approximately 12:30 began having significant left-sided discomfort radiating into the left neck. She states that she does not suffer from anxiety and that this does not feel like a COPD exacerbation. Later, collateral information, patient states that her son was diagnosed with COVID-19 approximately 3 days ago. Related Data Home Medications Medication Instructions Recorded Confirmed tizanidine 2 mg tablet 1 tab PO BEDTIME PRN muscle spasm 12/26/21 08/10/22 nitroglycerin 0.4 mg sublingual 0.4 mg sublingual Q5M PRN Chest 01/03/22 08/10/22 tablet Pain lifitegrast 5 % eye drops in a 1 drp ophthalmic (eye) BID 06/11/22 08/10/22 dropperette (Xiidra) Previous Rx's Medication Instructions Recorded letrozole 2.5 mg tablet 2.5 mg PO DAILY #90 tabs 11/08/21 losartan 25 mg tablet 25 mg PO DAILY 90 days #90 tabs 01/24/22 atorvastatin 80 mg tablet 80 mg PO DAILY 90 days #90 tabs 02/06/22 ticagrelor 90 mg tablet (Brilinta) 90 mg PO BID 90 days #180 tabs 02/06/22 ipratropium 0.5 mg-albuterol 3 mg 3 ml inhalation Q6H PRN wheezing 05/03/22 (2.5 mg base)/3 mL nebulization #180 mL soln lancets 28 gauge (FreeStyle #100 ea 06/07/22 Lancets) pen needle, diabetic 31 gauge x #200 ea 06/07/2204/02 (Comfort EZ Pen [place]) lamotrigine 25 mg tablet 25 mg PO BID 90 days #180 tabs 06/11/22 pregabalin 200 mg capsule (Lyrica) 200 mg PO BEDTIME #30 caps 06/13/22 pantoprazole 40 mg tablet,delayed 40 mg PO BID 90 days #180 tabs 06/27/22 release ondansetron 4 mg disintegrating 4 mg PO Q8H PRN nausea and 06/29/22 tablet vomiting #14 tabs pregabalin 150 mg capsule 150 mg PO .COMPLEX #30 caps 06/29/22 lubiprostone 8 mcg capsule 8 mcg PO BID 30 days #60 caps 07/18/22 (Amitiza) albuterol sulfate 90 mcg/actuation 2 puff PO Q4-6H #8.5 ea 07/30/22 aerosol inhaler dicyclomine 10 mg capsule 10 mg PO TID PRN for abdominal 08/01/22 pain 30 days #30 caps blood sugar diagnostic (FreeStyle #50 ea 08/02/22 Lite Strips) trazodone 100 mg tablet 100 mg PO BEDTIME 90 days #90 tabs 08/02/22 azithromycin 250 mg tablet 250 mg PO 3XW Asthma 30 days #13 08/07/22 tabs dulaglutide 1.5 mg/0.5 mL 1.5 mg (0.5 mL) subcut WE 30 days 08/07/22 subcutaneous pen injector #2.5 mL (Trulicity) prednisone 5 mg tablet 5 mg PO DAILY Asthma 30 days #30 08/07/22 tabs insulin aspart U-100 100 unit/mL 2 - 10 unit subcut TIDAC 30 days 08/14/22 (3 mL) subcutaneous pen (Novolog #15 mL Flexpen U-100 Insulin aspart) doxycycline hyclate 100 mg capsule 100 mg PO BID 7 days #14 caps 08/16/22 Allergies Allergy/AdvReac Type Severity Reaction Status Date / Time dog dander [DOGS] Allergy Intermediate Respiratory Verified 08/07/22 15:42 distress ibuprofen [Ibuprofen] Allergy Intermediate STOMACH Verified 08/07/22 15:42 UPSET, abdominal pain, nausea and vomiting shellfish derived Allergy Intermediate Hives Verified 08/07/22 15:42 etanercept [From Enbrel] AdvReac Intermediate Facial Verified 08/07/22 15:42 Swelling metformin AdvReac Intermediate diarrhea Verified 08/07/22 15:42 metronidazole [From FLAGYL] AdvReac Intermediate DIARRHEA Verified 08/07/22 15:42 prednisone AdvReac Intermediate hallucinations, Verified 08/07/22 15:42 higher than 20 Review of Systems Review of Systems: Pertinent positives and negatives as stated in HPI 10 point review of systems is otherwise negative. REPLACED BY [facility] Past Medical History Source: nursing notes reviewed Medical History Allergic rhinitis Anxiety Atherosclerotic cardiovascular disease Bipolar 1 disorder, depressed Bloody diarrhea Breast pain, right Bronchial asthma Colitis COPD (chronic obstructive pulmonary disease) COPD exacerbation Cough Depression Diabetes type 2, uncontrolled Dyslipidemia Fibromyalgia Hospital discharge follow-up Hyperkalemia Hyperlipidemia LDL goal <100 Hyperparathyroidism Hypertension Hypothyroid IDDM (insulin dependent diabetes mellitus) Infiltrating ductal carcinoma of left breast, stage 2 Insomnia Irritable bowel Osteoporosis PAD (peripheral artery disease) Rash Reactive airways dysfunction syndrome Restrictive airway disease Seropositive rheumatoid arthritis Thyroid nodule Vitamin D deficiency Surgical History H/O cardiac catheterization H/O: hysterectomy History of bunionectomy of both great toes History of colonoscopy History of esophagogastroduodenoscopy (EGD) History of lumpectomy of left breast History of pubovaginal sling History of tubal ligation Hx of endoscopy Family History Family History Mother Diabetes HTN (hypertension) Uterus cancer Malignant tumor of head Breast cancer Father Diabetes HTN (hypertension) CVD (cardiovascular disease) Heart problem Maternal Aunt Breast cancer Brother Myocardial infarction S/P CABG x 4 Family/Other FH: mental illness Family/Other Lung cancer Other Mental health disorder Social History Social History Household Members: Family Household Members Other:: sister Housing: Apartment Are you a primary care professional to a significant other at home: No Do you presently have visiting nurse or other home services: Yes (sister=field artillery operations specialist) Alcohol intake: never Patient Tobacco Use Status: Current everyday Tobacco user Tobacco use type: Cigarette Cigarettes Per Day: 2 Years Smoked: 50 +/- e-Cigarette/Vaping Use: Former Use Second Hand Smoke Exposure: Yes Use of substances other than those prescribed or required for medical reasons: No Advance Directives: Yes Advance Directives on File: Yes Advance Directives Date on File: 12/22/21 service: No Current occupational status: disabled Current occupation: rt handed Cognitive needs: No Hearing needs: No Vision needs: No Physical Exam Vital Signs: Vital Signs: Last Vital Signs Temp 98.4 F 08/16/22 17:57 Pulse 100 08/16/22 18:34 Resp 20 08/16/22 18:34 BP 127/89 08/16/22 18:34 Pulse Ox 95 08/16/22 18:34 O2 Del Method 08/16/22 18:34 O2 Flow Rate 2 08/16/22 15:19 BMI result Body Mass Index 22.6 VITAL SIGNS: Reviewed. GENERAL: Well developed, well nourished, in moderate distress. HEAD: Normocephalic/atraumatic, EYES: PERRLA, EOMI intact without pain, no nystagmus/pallor/icterus noted EARS: Ext canals without abnormality, TMs non-bulging and non-erythematous NOSE: Nares patent bilateral OROPHARYNX: no oral lesions noted, posterior pharynx clear and non-erythematous without noted tonsillar enlargement/erythema/exudates NECK: Supple, no adenopath, trachea is midline LUNGS: Normal breath sounds. No adventitious sounds or accessory muscle use. SpO2<95>; CHEST WALL: No crepitus or deformity noted CARDIOVASCULAR: Tachycardic rate and rhythm without noted murmurs, no JVD or lower extremity edema, no muffled heart sounds. ABDOMEN: Soft, non-tender, non-distended with bowel sounds. MUSCULOSKELETAL: No tenderness, deformities, or effusions noted on gross inspection. EXTREMITIES: No cyanosis, clubbing or edema. SKIN: Inspection of the skin reveals no rashes NEUROLOGIC: Alert and oriented x 4. Strength and sensation to light touch were grossly intact x 4. PSYCH: Anxious, normal affect Course Course Course Narrative: 62-year-old female with history and clinical presentation suspicious for possible pneumothorax but there is not evidence of tension at this time and initial two view chest x-ray does not appear to be consistent with pneumothorax, but due to patient's tachycardia will proceed with soft tissue of neck as well as chest. Patient's oxygenation is consistent with underlying COPD, blood pressure is stable. Patient noted to be febrile and received Tylenol, COVID-19 testing was negative and remaining scans were only significant for multiple mild patchy ground-glass opacity in lower lobes. On review of the bronchoscopy report there is mention of right lower lobe mass which may explain the multifocal ground-glass opacities that are currently seen on the CT scan. Given the jump in the leukocytosis and the procalcitonin taken together I would suspect that the leukocytosis is more of reactive/stress response, but due to patient's underlying medical conditions will start her on a course of doxycycline and instruct her to follow-up with Dr. Baum by calling the office in the morning. Patient has otherwise remained hemodynamically stable. I reviewed all investigations. MDM - SOB/Dyspnea Lab Data Result diagrams: 08/16/22 15:24 08/16/22 15:24 Labs: Lab Results 08/16/22 08/16/22 08/16/22 Range/Units 15:24 15:24 15:24 WBC 17.3 H (4.8-10.8) X10*3/uL RBC 4.74 (4.20-5.50) X10*6/uL Hgb 13.4 (12.0-16.0) g/dl Hct 40.3 (37.0-47.0) % MCV 85.0 (80.0-98.0) fL MCH 28.3 (27.0-33.0) pg MCHC 33.3 (31.0-35.0) g/dl RDW 13.8 (11.0-16.0) % Plt Count 308 (160-400) X10*3/uL MPV 10.1 (9.4-12.3) fL Immature Gran % (Auto) 0.5 H (0.0-0.4) % Neut % (Auto) 79.1 H (45-73) % Lymph % (Auto) 16.6 L (20-40) % [place]anan % (Auto) 3.5 (2-11) % Eos % (Auto) 0.1 (0-4) % Baso % (Auto) 0.2 (0-2) % Lymph # (Auto) 2.9 (1.2-4.9) X10*3/uL [place]anan # (Auto) 0.6 (0.1-1.2) X10*3/uL Eos # (Auto) 0.0 (0.0-0.4) X10*3/uL Baso # (Auto) 0.0 (0.0-0.2) X10*3/uL Abs Immat Gran (auto) 0.08 H (0.00-0.03) X10*3/uL Absolute Neuts (auto) 13.7 H (2.0-8.3) x10*3/uL Absolute Nucleated RBC 0.000 (0.0-0.012) X10*3/uL Nucleated RBC % (auto) 0.0 (0.0-0.2) /100WBC PT 12.5 (10.0-13.1) SEC INR 1.1 (0.9-1.1) Sodium (135-145) mmol/L Potassium (3.3-5.1) mmol/L Chloride (96-108) mmol/L Carbon Dioxide (22-29) mmol/L Anion Gap (12-20) BUN (9-16) mg/dL Creatinine (0.5-1.4) mg/dL Estim Creat Clear Calc Estimated GFR Random Glucose (60-115) mg/dL Lactic Acid (0.5-2.0) mmol/L Calcium (8.4-10.2) mg/dL Total Bilirubin (0.0-1.0) mg/dL AST (5-31) U/L ALT (0-31) U/L Alkaline Phosphatase (39-117) U/L Troponin I High Sens (<3.5-17.0) ng/L Total Protein (6.5-8.0) g/dL Albumin (3.5-5.0) g/dL Procalcitonin ng/mL COVID-19 ([facility]) Negative (Negative) COVID-19 Clin Com See Note 08/16/22 08/16/22 08/16/22 Range/Units 15:24 15:24 15:24 WBC (4.8-10.8) X10*3/uL RBC (4.20-5.50) X10*6/uL Hgb (12.0-16.0) g/dl Hct (37.0-47.0) % MCV (80.0-98.0) fL MCH (27.0-33.0) pg MCHC (31.0-35.0) g/dl RDW (11.0-16.0) % Plt Count (160-400) X10*3/uL MPV (9.4-12.3) fL Immature Gran % (Auto) (0.0-0.4) % Neut % (Auto) (45-73) % Lymph % (Auto) (20-40) % Buchanan % (Auto) (2-11) % Eos % (Auto) (0-4) % Baso % (Auto) (0-2) % Lymph # (Auto) (1.2-4.9) X10*3/uL [place]anan # (Auto) (0.1-1.2) X10*3/uL Eos # (Auto) (0.0-0.4) X10*3/uL Baso # (Auto) (0.0-0.2) X10*3/uL Abs Immat Gran (auto) (0.00-0.03) X10*3/uL Absolute Neuts (auto) (2.0-8.3) x10*3/uL Absolute Nucleated RBC (0.0-0.012) X10*3/uL Nucleated RBC % (auto) (0.0-0.2) /100WBC PT (10.0-13.1) SEC INR (0.9-1.1) Sodium 141 (135-145) mmol/L Potassium 4.0 (3.3-5.1) mmol/L Chloride 106 (96-108) mmol/L Carbon Dioxide 22 (22-29) mmol/L Anion Gap 17 (12-20) BUN 8 L (9-16) mg/dL Creatinine 0.83 (0.5-1.4) mg/dL Estim Creat Clear Calc 46.5 Estimated GFR > 60 Random Glucose 192 H (60-115) mg/dL Lactic Acid (0.5-2.0) mmol/L Calcium 9.5 (8.4-10.2) mg/dL Total Bilirubin 0.4 (0.0-1.0) mg/dL AST 12 (5-31) U/L ALT 19 (0-31) U/L Alkaline Phosphatase 69 (39-117) U/L Troponin I High Sens 3.8 (<3.5-17.0) ng/L Total Protein 7.0 (6.5-8.0) g/dL Albumin 4.3 (3.5-5.0) g/dL Procalcitonin 0.02 ng/mL COVID-19 ([facility]) (Negative) COVID-19 Clin Com 08/16/22 08/16/22 Range/Units 15:48 17:56 WBC (4.8-10.8) X10*3/uL RBC (4.20-5.50) X10*6/uL Hgb (12.0-16.0) g/dl Hct (37.0-47.0) % MCV (80.0-98.0) fL MCH (27.0-33.0) pg MCHC (31.0-35.0) g/dl RDW (11.0-16.0) % Plt Count (160-400) X10*3/uL MPV (9.4-12.3) fL Immature Gran % (Auto) (0.0-0.4) % Neut % (Auto) (45-73) % Lymph % (Auto) (20-40) % Buchanan % (Auto) (2-11) % Eos % (Auto) (0-4) % Baso % (Auto) (0-2) % Lymph # (Auto) (1.2-4.9) X10*3/uL [place] # (Auto) (0.1-1.2) X10*3/uL Eos # (Auto) (0.0-0.4) X10*3/uL Baso # (Auto) (0.0-0.2) X10*3/uL Abs Immat Gran (auto) (0.00-0.03) X10*3/uL Absolute Neuts (auto) (2.0-8.3) x10*3/uL Absolute Nucleated RBC (0.0-0.012) X10*3/uL Nucleated RBC % (auto) (0.0-0.2) /100WBC PT (10.0-13.1) SEC INR (0.9-1.1) Sodium (135-145) mmol/L Potassium (3.3-5.1) mmol/L Chloride (96-108) mmol/L Carbon Dioxide (22-29) mmol/L Anion Gap (12-20) BUN (9-16) mg/dL Creatinine (0.5-1.4) mg/dL Estim Creat Clear Calc Estimated GFR Random Glucose (60-115) mg/dL Lactic Acid 2.3 H* 1.0 (0.5-2.0) mmol/L Calcium (8.4-10.2) mg/dL Total Bilirubin (0.0-1.0) mg/dL AST (5-31) U/L ALT (0-31) U/L Alkaline Phosphatase (39-117) U/L Troponin I High Sens (<3.5-17.0) ng/L Total Protein (6.5-8.0) g/dL Albumin (3.5-5.0) g/dL Procalcitonin ng/mL COVID-19 ([facility]) (Negative) COVID-19 Clin Com ECG Data Attestation: I personally reviewed and interpreted this ECG as follows: Prior ECG tracings: available for review Interpretation: Sinus tachycardia, HR-112, no STEMI, ND/QRS/QTC are within normal limits. Discharge Plan Discharge Clinical Impression: Musculoskeletal pain, Anxiety, COPD (chronic obstructive pulmonary disease), Chronic neck pain Patient Disposition: Home, Self-Care Additional Instructions: 1. Resume all home medications. 2. Complete the entire course of your antibiotics. 3. Please call the office of Dr. Baum in the morning. Return to the ER for any worsening symptoms. Prescriptions: New doxycycline hyclate 100 mg capsule 100 mg PO BID 7 Days Qty: 14 0RF No Action losartan 25 mg tablet 25 mg PO DAILY 90 Days Qty: 90 2RF ipratropium-albuterol 0.5 mg-3 mg(2.5 mg base)/3 mL solution for nebulization 3 ml inhalation Q6H PRN (Reason: wheezing) Qty: 180 2RF (DME) pen needle, diabetic [Comfort EZ Pen [place]] 31 gauge x 5/16 needle See Rx Instructions .ROUTE .MEDSUPPLY Qty: 200 11RF Rx Instructions: Use 1 pen needle 6 times a day (DME) lancets [FreeStyle Lancets] 28 gauge misc See Rx Instructions .Route Qty: 100 3RF Rx Instructions: Use 1 lancet once a day lamotrigine 25 mg tablet 25 mg PO BID 90 Days Qty: 180 1RF pregabalin [Lyrica] 200 mg capsule 200 mg PO BEDTIME Qty: 30 3RF pantoprazole 40 mg tablet,delayed release (DR/EC) 40 mg PO BID 90 Days Qty: 180 0RF pregabalin 150 mg capsule 150 mg PO .COMPLEX Qty: 30 3RF Rx Instructions: 150 mg orally one cap daily in AM; lubiprostone [Amitiza] 8 mcg capsule 8 mcg PO BID 30 Days Qty: 60 3RF albuterol sulfate 90 mcg/actuation HFA aerosol inhaler 2 puff PO Q4-6H Qty: 8.5 3RF dicyclomine 10 mg capsule 10 mg PO TID PRN (Reason: for abdominal pain) 30 Days Qty: 30 1RF trazodone 100 mg tablet 100 mg PO BEDTIME 90 Days Qty: 90 0RF (DME) FreeStyle Lite Strips Strip MISCELLANEOUS DAILY Qty: 50 1RF Rx Instructions: Use 1 test strip once a day Trulicity 1.5 mg/0.5 mL pen injector 1.5 mg subcut WE 30 Days Qty: 2.5 11RF insulin aspart U-100 [Novolog Flexpen U-100 Insulin] 100 unit/mL (3 mL) insulin pen 2 - 10 unit subcut TIDAC 30 Days Qty: 15 11RF Protocol: Insulin Correction Scale Less than or equal to 110 ---- Give (units): 0 111 to 150 Give (units): 0 151 to 200 Give (units): 2 201 to 250 Give (units): 4 251 to 300 Give (units): 6 301 to 350 Give (units): 8 Greater than 350 Give (units): 10 Call MD if Blood Glucose > : 350 Rx Instructions: Via sliding scale letrozole 2.5 mg Tablet 2.5 mg PO DAILY Qty: 90 4RF tizanidine 2 mg tablet 1 tab PO BEDTIME PRN (Reason: muscle spasm) ondansetron 4 mg tablet,disintegrating 4 mg PO Q8H PRN (Reason: nausea and vomiting) Qty: 14 0RF nitroglycerin 0.4 mg tablet, sublingual 0.4 mg sublingual Q5M PRN (Reason: Chest Pain) atorvastatin 80 mg tablet 80 mg PO DAILY 90 Days Qty: 90 1RF Rx Instructions: patient lost recent RX, please fill this as emergency RX this one time Brilinta 90 mg tablet 90 mg PO BID 90 Days Qty: 180 1RF Rx Instructions: Please fill Rx today, patient lost previous RX, fill as emergency this one time Xiidra 5 % dropperette 1 drp ophthalmic (eye) BID prednisone 5 mg tablet 5 mg PO DAILY 30 Days Qty: 30 1RF azithromycin 250 mg tablet 250 mg PO 3XW 30 Days Qty: 13 1RF Referrals: Adela Gipson MD [Primary Care Provider] - Marry Baum MD [Physician] -
[2022-08-16 15:32] LABS: MANUAL DIFF FLAG NO
[2022-08-16 15:33] LABS: Basophils Percent Auto 0.2 % (0-2); Eosinophils Percent Auto 0.1 % (0-4); Hematocrit 40.3 % (37.0-47.0); Hemoglobin 13.4 g/dl (12.0-16.0); Imm Gran Abs Auto 0.08 X10*3/uL (0.00-0.03); Imm Gran Pct Auto 0.5 % (0.0-0.4); Lymphocytes Absolute Auto 2.9 X10*3/uL (1.2-4.9); Lymphocytes Percent Auto 16.6 % (20-40); Mean Corpuscular HGB Conc 33.3 g/dl (31.0-35.0); Mean Corpuscular Hemoglobin 28.3 pg (27.0-33.0); Mean Platelet Volume 10.1 fL (9.4-12.3); Monocytes Absolute Auto 0.6 X10*3/uL (0.1-1.2); Monocytes Percent Auto 3.5 % (2-11); Neutrophils Absolute Auto 13.7 x10*3/uL (2.0-8.3); Neutrophils Percent Auto 79.1 % (45-73); Platelet Count 308 X10*3/uL (160-400); Red Blood Count 4.74 X10*6/uL (4.20-5.50); Red Cell Distribution Width 13.8 % (11.0-16.0); White Blood Count 17.3 X10*3/uL (4.8-10.8)
[2022-08-16 15:39] LABS: INTERNATIONAL NORM RATIO 1.1 (0.9-1.1); Prothrombin Time 12.5 SEC (10.0-13.1)
[2022-08-16 15:48] LABS: Alanine Aminotransferase 19 U/L (0-31); Albumin Level 4.3 g/dL (3.5-5.0); Alkaline Phosphatase 69 U/L (39-117); Anion Gap 17 (12-20); Aspartate Amino Transferase 12 U/L (5-31); Bilirubin Total 0.4 mg/dL (0.0-1.0); Blood Urea Nitrogen 8 mg/dL (9-16); Calcium 9.5 mg/dL (8.4-10.2); Carbon Dioxide 22 mmol/L (22-29); Chloride 106 mmol/L (96-108); Creatinine Clr Calc Pharmacy 46.5; Estimated Glomerular Filt Rate > 60; Glucose Random 192 mg/dL (60-115); Sodium 141 mmol/L (135-145)
[2022-08-16 15:49] LABS: COVID-19 Test Negative (Negative); IDNOW Serial# 16C4AD1C
[2022-08-16] MEDS: Acetaminophen 325 MG TABLET 975 MG PO (15:52)
[2022-08-16] MEDS: fentaNYL citrate/PF 100 MCG/2 ML VIAL 25 MCG IVPUSH (15:52)
--- NOTE | 2022-08-16 15:55 | PC.NURSE ---
pt is alert and oriented, skin appropriate for ethnicity, respirations even and unlabored, ls diminished and wheezing through out. pt reports having a bronchoscopie earlier todayand now feeling sob/having a headache and neck pain that radiates down to her back, sinus tach on the monitor ranges from 105-115 with movement.
[2022-08-16 16:00] LABS: Troponin-I High Sensitivity 3.8 ng/L (<3.5-17.0)
[2022-08-16 16:20] LABS: Lactic Acid 2.3 mmol/L (0.5-2.0)
[2022-08-16] MEDS: 0.9 % Sodium Chloride 1,000 ML 999 ML IV (16:46)
[2022-08-16] MEDS: Albuterol/Iprat 2.5/0.5MG 3 ML AMPUL.NEB INHALE (16:54)
[2022-08-16 16:55] VITALS: PULSE 107; RESP 20; O2SAT 96
[2022-08-16 17:57] VITALS: BP 116/76; PULSE 100; RESP 16; TEMP 36.9; O2SAT 98
[2022-08-16 17:57] LABS: Reflex Lactate? Lactic Acid Added
[2022-08-16] MEDS: Lidocaine 4 % Patch ADH..PATCH 1 PATCH TRANSDERMA (18:30)
[2022-08-16 18:34] VITALS: BP 127/89; PULSE 100; RESP 20; O2SAT 95
[2022-08-16 18:58] LABS: Procalcitonin 0.02 ng/mL
== END 2022-08-16 19:48 | disposition home or self-care (01) ==
PROVIDERS: Emergency Provider Student in an Organized Health Care Education/Training Program; PCP Internal Medicine
DX: M79.10 Myalgia, unspecified site (principal); F41.9 Anxiety disorder, unspecified; J44.9 Chronic obstructive pulmonary disease, unspecified; G89.29 Other chronic pain; M54.2 Cervicalgia; R00.0 Tachycardia, unspecified; Z20.822 Contact with and (suspected) exposure to COVID-19; E11.9 Type 2 diabetes mellitus without complications; E78.5 Hyperlipidemia, unspecified; I10 Essential (primary) hypertension; Z79.899 Other long term (current) drug therapy; Z79.4 Long term (current) use of insulin; Z79.02 Long term (current) use of antithrombotics/antiplatelets
CPT/HCPCS: 36415; 70490; 71046; 71250; 80053; 83605; 84145; 84484; 85025; 85610; 87040; 87635; 93005; 94640; 96361; 96374; 99284; 99285; J3010

== ENCOUNTER → 2022-08-30 10:27 | Outpatient (BNVA) | payer MEDICARE, MEDICAID, SELFPAY ==
[2022-07-02 13:53] VITALS: BP 100/64; BP 102/48; BP 110/70; BMI 25.5
== END ==
PROVIDERS: PCP Internal Medicine; Visit Provider Internal Medicine
DX: J44.9 Chronic obstructive pulmonary disease, unspecified (principal); J45.909 Unspecified asthma, uncomplicated
CPT/HCPCS: 99212

== ENCOUNTER 2022-09-06 10:23 | Outpatient (REF) | payer MEDICARE, MEDICAID, SELFPAY ==
[2022-07-02 13:53] VITALS: BP 100/64; BP 102/48; BP 110/70; BMI 25.5
[2022-09-06 10:42] LABS: MANUAL DIFF FLAG NO
[2022-09-06 12:00] LABS: Basophils Percent Auto 0.3 % (0-2); Eosinophils Absolute Auto 0.1 X10*3/uL (0.0-0.4); Eosinophils Percent Auto 0.8 % (0-4); Hematocrit 40.4 % (37.0-47.0); Hemoglobin 13.3 g/dl (12.0-16.0); Imm Gran Abs Auto 0.04 X10*3/uL (0.00-0.03); Imm Gran Pct Auto 0.5 % (0.0-0.4); Lymphocytes Absolute Auto 3.2 X10*3/uL (1.2-4.9); Lymphocytes Percent Auto 36.5 % (20-40); Mean Corpuscular HGB Conc 32.9 g/dl (31.0-35.0); Mean Corpuscular Hemoglobin 28.7 pg (27.0-33.0); Mean Corpuscular Volume 87.3 fL (80.0-98.0); Mean Platelet Volume 11.6 fL (9.4-12.3); Monocytes Absolute Auto 0.6 X10*3/uL (0.1-1.2); Monocytes Percent Auto 6.3 % (2-11); Neutrophils Absolute Auto 4.9 x10*3/uL (2.0-8.3); Neutrophils Percent Auto 55.6 % (45-73); Platelet Count 307 X10*3/uL (160-400); Red Blood Count 4.63 X10*6/uL (4.20-5.50); Red Cell Distribution Width 14.1 % (11.0-16.0); White Blood Count 8.8 X10*3/uL (4.8-10.8)
[2022-09-06 12:33] LABS: Alanine Aminotransferase 19 U/L (0-31); Aspartate Amino Transferase 15 U/L (5-31); C Reactive Protein 0.24 mg/dL (< or = 0.50); Estimated Glomerular Filt Rate > 60
[2022-09-06 13:05] LABS: Erythrocyte Sedimentation Rate 11 MM/HR (0-20)
[2022-09-07 07:55] LABS: HBc Num1 0.07 S/CO (0.00-0.79); HBsAGNum1 0.21 S/CO (0.00-0.99); Hepatitis A Antibody IgM 0.61 Index (0-0.79); Hepatitis B Core Antibody Nonreactive (Nonreactive); Hepatitis B Surface Antigen Negative (Negative); ~HepC Num1 0.17 S/CO (0.00-0.79); ~Hepatitis A Antibody IgM Nonreactive (Nonreactive); ~Hepatitis B Surface Antibody NONREACTIVE (Nonreactive); ~Hepatitis C Antibody Nonreactive (Nonreactive)
[2022-09-08 13:22] LABS: TS Negative Control Passed; TS Panel A 0; TS Panel B 0; TS Positive Control Passed; TSpotTB Negative (Negative)
== END 2022-09-06 10:24 | disposition home or self-care (01) ==
LOC: HO.LAB 10:23
PROVIDERS: Absent Provider Nurse Practitioner Family; PCP Internal Medicine; Visit Provider Internal Medicine Gastroenterology
DX: Z11.1 Encounter for screening for respiratory tuberculosis (principal); E11.9 Type 2 diabetes mellitus without complications; E78.5 Hyperlipidemia, unspecified; I10 Essential (primary) hypertension; M81.0 Age-related osteoporosis without current pathological fracture; E21.3 Hyperparathyroidism, unspecified; E55.9 Vitamin D deficiency, unspecified; K92.1 Melena; R63.4 Abnormal weight loss; R13.10 Dysphagia, unspecified; K21.9 Gastro-esophageal reflux disease without esophagitis; K57.30 Diverticulosis of large intestine without perforation or abscess without bleeding; R14.0 Abdominal distension (gaseous); B15.9 Hepatitis A without hepatic coma; K59.09 Other constipation; Z86.19 Personal history of other infectious and parasitic diseases; Z87.19 Personal history of other diseases of the digestive system
CPT/HCPCS: 36415; 82565; 82947; 84450; 84460; 85025; 85610; 85652; 86140; 86481; 86704; 86706; 86709; 86803; 87340; 99212

== ENCOUNTER → 2022-09-19 09:36 | Outpatient (BNVA) | payer MEDICARE, MEDICAID, SELFPAY ==
[2022-07-02 13:53] VITALS: BP 100/64; BP 102/48; BP 110/70; BMI 25.5
== END ==
PROVIDERS: PCP Internal Medicine; Referring Provider Internal Medicine; Visit Provider Internal Medicine Cardiovascular Disease
DX: R07.9 Chest pain, unspecified (principal); I10 Essential (primary) hypertension
CPT/HCPCS: 93005; 99212

== ENCOUNTER → 2022-09-20 10:26 | Outpatient (REF) | payer MEDICARE, MEDICAID, SELFPAY ==
[2022-09-19 10:26] VITALS: BP 100/64; BP 102/48; BP 110/70; BMI 25.5
--- NOTE | 2022-09-20 10:29 | CA_ITS ---
Acquisition Time: 2022-09-20 11:12:46 Total Exercise Time: 00:06:00 Test Indications: Chest Pain Medications: SEE H Protocol: EMI Max HR: 160 BPM 100% of Pred: 160 BPM Max BP: 118/052 mmHG Max Work Load: 7.0 METS Exercise stress test with exercise 6 min of Emi protocol, achievng 92% MPHR, with moderate shortness of breath and intermittent cough, no chest discomfort, without arrythmia, with normotensive response to exercise, without EKG changes meeting criteria for ischemia. Echo images obtained by tech at rest and immediately post peak exercise. Definity contrast used. In recovery she had sob, cough, wheeze that she reports is her COPD and used her own Proair inhaler with improvement in symptoms. Test reviewed with Dr No. Stress echo images reviewed. At rest the LVEF is normal with no RWMA. EF 55-60%. Post stress images have appropriate augmentation of the LV function and LV cavity is smaller in size. There are no regional wall motion abnormalities on the post stress images. Conclusion: Normal stress echo. Referred By: Joseph Salmon Overread By: Joseph Salmon
== END ==
LOC: HO.CARD 10:26
PROVIDERS: Visit Provider Internal Medicine Cardiovascular Disease
DX: R07.9 Chest pain, unspecified (principal)
CPT/HCPCS: 93017; 93350; Q9957

== ENCOUNTER 2022-09-26 08:31 | Outpatient (REF) | payer MEDICARE, MEDICAID, SELFPAY ==
[2022-09-19 10:26] VITALS: BP 100/64; BP 102/48; BP 110/70; BMI 25.5
--- NOTE | ~2022-09-26 | MM_ITS ---
EXAMINATION: MM SCREENING DIGITAL BREAST TOMOSYNTHESIS, BILATERAL CLINICAL INFORMATION: Left IDC status post lumpectomy 11/26/2018. Due for yearly. COMPARISON: Mammography: 09/28/2021, 11/22/2020, 11/03/2019, 10/24/2018 TECHNIQUE: Digital breast tomosynthesis is performed in both the craniocaudal and mediolateral oblique views along with computer-aided detection (CAD). Synthesized 2D images are generated from the tomosynthesis. FINDINGS: There are scattered areas of fibroglandular density (ACR BI-RADS breast composition Category b). There are no significant masses, abnormal calcifications, or other abnormalities. No developing density or interval architectural abnormality. Minor post therapy changes on the left are stable. MM/MM tomosynthesis screening BI IMPRESSION: No mammographic evidence of malignancy. Post therapy changes left breast. ASSESSMENT: BI-RADS 2: Benign RECOMMENDATION: Routine annual mammography screening. This patient's information was entered into a reminder system with a target due date for their next mammogram.
== END 2022-09-26 08:32 | disposition home or self-care (01) ==
LOC: HO.MAMMO 08:31
PROVIDERS: PCP Internal Medicine; Visit Provider Internal Medicine
DX: Z12.31 Encounter for screening mammogram for malignant neoplasm of breast (principal)
CPT/HCPCS: 77063; 77067

== ENCOUNTER 2022-09-27 07:34 | Outpatient (REF) | payer MEDICARE, MEDICAID, SELFPAY ==
[2022-09-19 10:26] VITALS: BP 100/64; BP 102/48; BP 110/70; BMI 25.5
[2022-09-27 07:47] LABS: MANUAL DIFF FLAG NO
[2022-09-27 08:20] LABS: Basophils Percent Auto 0.4 % (0-2); Eosinophils Absolute Auto 0.1 X10*3/uL (0.0-0.4); Eosinophils Percent Auto 0.9 % (0-4); Hemoglobin 13.8 g/dl (12.0-16.0); Imm Gran Abs Auto 0.04 X10*3/uL (0.00-0.03); Imm Gran Pct Auto 0.4 % (0.0-0.4); Lymphocytes Absolute Auto 3.2 X10*3/uL (1.2-4.9); Lymphocytes Percent Auto 31.4 % (20-40); Mean Corpuscular HGB Conc 32.1 g/dl (31.0-35.0); Mean Corpuscular Hemoglobin 28.5 pg (27.0-33.0); Mean Corpuscular Volume 88.8 fL (80.0-98.0); Mean Platelet Volume 10.5 fL (9.4-12.3); Monocytes Absolute Auto 0.6 X10*3/uL (0.1-1.2); Monocytes Percent Auto 6.3 % (2-11); Neutrophils Absolute Auto 6.1 x10*3/uL (2.0-8.3); Neutrophils Percent Auto 60.6 % (45-73); Platelet Count 343 X10*3/uL (160-400); Red Blood Count 4.84 X10*6/uL (4.20-5.50); Red Cell Distribution Width 14.3 % (11.0-16.0); White Blood Count 10.1 X10*3/uL (4.8-10.8)
[2022-09-27 08:48] LABS: Creatinine Urine 153.68 mg/dL; Microalbum/Creatinine Ratio Ur 4.5 ug/mg cr
[2022-09-27 08:59] LABS: Calcium 9.5 mg/dL (8.4-10.2); Chloride 107 mmol/L (96-108); Sodium 144 mmol/L (135-145)
[2022-09-27 10:33] LABS: Alanine Aminotransferase 23 U/L (0-31); Albumin Level 4.2 g/dL (3.5-5.0); Alkaline Phosphatase 77 U/L (39-117); Anion Gap 18 (12-20); Aspartate Amino Transferase 16 U/L (5-31); Bilirubin Total 0.5 mg/dL (0.0-1.0); Blood Urea Nitrogen 8 mg/dL (9-16); Carbon Dioxide 25 mmol/L (22-29); Cholesterol 141 mg/dL; Estimated Glomerular Filt Rate > 60; Glucose Fasting 167 mg/dL (60-99); HDL Cholesterol 47 mg/dL; LDL Cholesterol Calculated 67 mg/dl; Triglycerides 137 mg/dL
[2022-09-27 11:33] LABS: Vitamin D 25-OH Total 37.6 ng/mL (>30)
== END 2022-09-27 07:35 | disposition home or self-care (01) ==
LOC: HO.LAB 07:34
PROVIDERS: Internal Medicine Gastroenterology; PCP Internal Medicine; Visit Provider Internal Medicine
DX: K92.1 Melena (principal); E11.9 Type 2 diabetes mellitus without complications; E55.9 Vitamin D deficiency, unspecified; E78.5 Hyperlipidemia, unspecified; J44.9 Chronic obstructive pulmonary disease, unspecified
CPT/HCPCS: 36415; 80053; 80061; 82043; 82306; 85025

== ENCOUNTER 2022-10-16 15:55 | Outpatient (REF) | payer MEDICARE, MEDICAID, SELFPAY ==
[2022-09-19 10:26] VITALS: BP 100/64; BP 102/48; BP 110/70; BMI 25.5
[2022-10-16 16:04] LABS: MANUAL DIFF FLAG NO
[2022-10-16 16:25] LABS: Basophils Percent Auto 0.3 % (0-2); Eosinophils Absolute Auto 0.1 X10*3/uL (0.0-0.4); Eosinophils Percent Auto 1.3 % (0-4); Hemoglobin 13.4 g/dl (12.0-16.0); Imm Gran Abs Auto 0.07 X10*3/uL (0.00-0.03); Imm Gran Pct Auto 0.6 % (0.0-0.4); Lymphocytes Absolute Auto 4.1 X10*3/uL (1.2-4.9); Lymphocytes Percent Auto 37.8 % (20-40); Mean Corpuscular HGB Conc 32.7 g/dl (31.0-35.0); Mean Corpuscular Hemoglobin 29.1 pg (27.0-33.0); Mean Corpuscular Volume 88.9 fL (80.0-98.0); Mean Platelet Volume 10.5 fL (9.4-12.3); Monocytes Absolute Auto 0.7 X10*3/uL (0.1-1.2); Monocytes Percent Auto 6.7 % (2-11); Neutrophils Absolute Auto 5.8 x10*3/uL (2.0-8.3); Neutrophils Percent Auto 53.3 % (45-73); Platelet Count 340 X10*3/uL (160-400); Red Blood Count 4.61 X10*6/uL (4.20-5.50); Red Cell Distribution Width 13.6 % (11.0-16.0); White Blood Count 10.9 X10*3/uL (4.8-10.8)
[2022-10-16 17:00] LABS: Erythrocyte Sedimentation Rate 8 MM/HR (0-20)
[2022-10-16 17:05] LABS: Alanine Aminotransferase 15 U/L (0-31); Albumin Level 4.1 g/dL (3.5-5.0); Alkaline Phosphatase 88 U/L (39-117); Anion Gap 11 (12-20); Aspartate Amino Transferase 12 U/L (5-31); Bilirubin Total 0.3 mg/dL (0.0-1.0); Blood Urea Nitrogen 13 mg/dL (9-16); C Reactive Protein 0.37 mg/dL (< or = 0.50); Calcium 9.7 mg/dL (8.4-10.2); Carbon Dioxide 29 mmol/L (22-29); Chloride 106 mmol/L (96-108); Estimated Glomerular Filt Rate > 60; Glucose Random 56 mg/dL (60-115); Potassium 4.8 mmol/L (3.3-5.1); Sodium 141 mmol/L (135-145)
== END 2022-10-16 15:56 | disposition home or self-care (01) ==
LOC: HO.LAB 15:55
PROVIDERS: PCP Internal Medicine; Visit Provider Nurse Practitioner Family
DX: M05.9 Rheumatoid arthritis with rheumatoid factor, unspecified (principal)
CPT/HCPCS: 36415; 80053; 85025; 85652; 86140

== ENCOUNTER → 2022-10-17 09:18 | Outpatient (BNVA) | payer MEDICARE, MEDICAID, SELFPAY ==
[2022-09-19 10:26] VITALS: BP 100/64; BP 102/48; BP 110/70; BMI 25.5
== END ==
PROVIDERS: PCP Internal Medicine; Visit Provider Nurse Practitioner Family
DX: M05.9 Rheumatoid arthritis with rheumatoid factor, unspecified (principal); M79.7 Fibromyalgia; F17.210 Nicotine dependence, cigarettes, uncomplicated; Z79.52 Long term (current) use of systemic steroids
CPT/HCPCS: 99212

== ENCOUNTER 2022-10-24 08:12 | Outpatient (REF) | payer MEDICARE, MEDICAID, SELFPAY ==
[2022-09-19 10:26] VITALS: BP 100/64; BP 102/48; BP 110/70; BMI 25.5
--- NOTE | ~2022-10-24 | FL_ITS ---
EXAMINATION: FL BARIUM SWALLOW CLINICAL INFORMATION: Gastroesophageal reflux disease without esophagitis. COMPARISON: None TECHNIQUE: Barium swallow examination is performed using fluoroscopic evaluation in addition to multiple fluoroscopic spot views. The patient is imaged both upright and prone and using both thick and thin sulfate along with effervescent granules. Fluoroscopy time: 2.4 minutes DAP: 7.946 Gy-cm2 Images: 78 FINDINGS: Following oral administration of thick, thin barium and barium-coated turkey in upright view, there is normal propagation of bolus from the oral cavity through the pharynx, esophagus into stomach without obstruction, narrowing or stricture. There is mild prominence of cricoesophageal sphincter indenting the upper esophagus. There is mild ventral spondylosis at the C5-C6 and C6-C7 disc levels with minimal indentation on the posterior cervical esophageal wall. However, there is no obstruction. On oral administration of barium tablet, there is transient holdup in the mid esophagus and slightly longer in the distal esophagus. FL/FL barium swallow IMPRESSION: Prominent cricoesophageal sphincter with minimal difficulty swallowing food at this level. The rest of the esophagus and GE junction is normal. No hiatal hernia or reflux seen.
== END 2022-10-24 08:13 | disposition home or self-care (01) ==
LOC: HO.XRAY 08:12
PROVIDERS: PCP Internal Medicine; Visit Provider Internal Medicine Gastroenterology
DX: Z13.89 Encounter for screening for other disorder (principal)
CPT/HCPCS: 74220

== ENCOUNTER 2022-10-24 17:30 | Emergency (ER) | payer MEDICARE, MEDICAID, SELFPAY ==
[2022-09-19 10:26] VITALS: BP 100/64; BP 102/48; BP 110/70; BMI 25.5
--- NOTE | ~2022-10-24 | XR_ITS ---
EXAMINATION: XR HAND, RIGHT CLINICAL INFORMATION: Hand pain COMPARISON: None TECHNIQUE: PA, lateral, and oblique views of the right hand. FINDINGS: The bones and soft tissues are normal. No fracture. Alignment is anatomic. Joint spaces are maintained. No erosions or soft tissue calcifications. XR/XR hand RT min 3V IMPRESSION: Unremarkable right hand.
--- NOTE | ~2022-10-24 | XR_ITS ---
EXAMINATION: XR CHEST CLINICAL INFORMATION: Shortness of breath COMPARISON: 08/16/2022 TECHNIQUE: Frontal view of the chest was obtained. FINDINGS: No significant abnormality is noted involving the heart, lungs, mediastinum, bony thorax or soft tissues. XR/XR chest 1V IMPRESSION: Unremarkable examination.
[2022-10-24 18:38] VITALS: BP 160/86; PULSE 113; RESP 18; TEMP 36.3; O2SAT 98; BMI 25.9
--- NOTE | 2022-10-24 18:44 | ED_ITS ---
HPI - SOB/Dyspnea General Chief Complaint: Dyspnea <Cheyenne Coy MD - Last Filed: 10/24/22 18:48> Stated Complaint: rheumatoid paid <Cheyenne Coy MD - Last Filed: 10/24/22 18:48> Time Seen by Provider: 10/24/22 19:23 <Cheyenne Coy MD - Last Filed: 10/24/22 18:48> Source: patient <JOSEF Kim - Last Filed: 10/24/22 22:20> Mode of arrival: ambulatory <JOSEF Kim - Last Filed: 10/24/22 22:20> Limitations: no limitations <JOSEF Kim - Last Filed: 10/24/22 22:20> History of Present Illness HPI Narrative: 62 year old female hisotry of headaches, hyperlipedemia, T2DM, ashma, allergic rhinitis, breast cancer, hepatitis A, CAD, HTN, GERD, COPD, hyperparathyroidism, rheumatoid arthritis presents to the emergency department with complaints of atruamatic right hand pain X 2-3 days worsening, patient tells me that it feels like her typical RA flare. She reports its worse w/ movment better at rest. Also coming in today with pleuritic chest pain/ SOB for the past 3 days, she tells me she has COPD however this feels slightly different she tells me she also feels a strange discomfort underneath her left posterior ribs when she takes a deep breath.? Patient has no history of PE or DVT, not on blood thinners.? Patient denies trauma or falls.? Denies fevers, chills, nausea, vomiting, abdominal pain, headache, vision changes, dizziness, lower extremity pain or swelling, calf pain.? No known sick contacts. <JOSEF Kim - Last Filed: 10/24/22 22:20> Related Data Home Medications: Home Medications Medication Instructions Recorded Confirmed tizanidine 2 mg tablet 1 tab PO BEDTIME PRN muscle spasm 12/26/21 10/17/22 nitroglycerin 0.4 mg sublingual 0.4 mg sublingual Q5M PRN Chest 01/03/22 10/17/22 tablet Pain lifitegrast 5 % eye drops in a 1 drp ophthalmic (eye) BID 06/11/22 10/17/22 dropperette (Xiidra) prednisone 5 mg tablet See Rx Instructions .Route .COMPLEX 10/17/22 10/17/22 Previous Rx's Medication Instructions Recorded letrozole 2.5 mg tablet 2.5 mg PO DAILY #90 tabs 11/08/21 atorvastatin 80 mg tablet 80 mg PO DAILY 90 days #90 tabs 02/06/22 ticagrelor 90 mg tablet (Brilinta) 90 mg PO BID 90 days #180 tabs 02/06/22 lancets 28 gauge (FreeStyle #100 ea 06/07/22 Lancets) pen needle, diabetic 31 gauge x #200 ea 06/07/22 5/ (Comfort EZ Pen [place]) lamotrigine 25 mg tablet 25 mg PO BID 90 days #180 tabs 06/11/22 ondansetron 4 mg disintegrating 4 mg PO Q8H PRN nausea and 06/29/22 tablet vomiting #14 tabs pregabalin 150 mg capsule 150 mg PO .COMPLEX #30 caps 06/29/22 lubiprostone 8 mcg capsule 8 mcg PO BID 30 days #60 caps 07/18/22 (Amitiza) albuterol sulfate 90 mcg/actuation 2 puff PO Q4-6H #8.5 ea 07/30/22 aerosol inhaler trazodone 100 mg tablet 100 mg PO BEDTIME 90 days #90 tabs 08/02/22 dulaglutide 1.5 mg/0.5 mL 1.5 mg (0.5 mL) subcut WE 30 days 08/07/22 subcutaneous pen injector #2.5 mL (Trulicity) Novolog Flexpen U-100 Insulin 100 2 - 10 unit subcut TIDAC 30 days 08/28/22 unit/mL (3 mL) subcutaneous #15 mL (insulin aspart U-100) dicyclomine 10 mg capsule 10 mg PO TID PRN for abdominal 08/28/22 pain 30 days #30 caps famotidine 20 mg tablet 20 mg PO BEDTIME 90 days #90 tabs 09/07/22 losartan 25 mg tablet 25 mg PO DAILY #90 tabs 09/07/22 blood sugar diagnostic (FreeStyle #100 ea 09/26/22 Lite Strips) pregabalin 200 mg capsule (Lyrica) 200 mg PO BEDTIME #30 caps 10/01/22 pvaeufaydr-wzkkavyxkvifz-nachcmyh 1 tab PO Q6H PRN pain 30 days #30 10/02/22 50 mg-325 mg-40 mg tablet tabs azithromycin 250 mg tablet 250 mg PO 3XW for asthma #12 tabs 10/17/22 ipratropium 0.5 mg-albuterol 3 mg 3 ml inhalation Q6H PRN wheezing 10/17/22 (2.5 mg base)/3 mL nebulization #180 mL soln sulfasalazine 500 mg tablet See Rx Instructions .Route 10/17/22 .COMPLEX #60 tabs pantoprazole 40 mg tablet,delayed 40 mg PO BID 90 days #180 tabs 10/18/22 release albuterol sulfate 90 mcg/actuation 2 inh inhalation Q4-6H PRN 10/24/22 breath activated powder inhaler shortness of breath or wheezing #1 ea azithromycin 250 mg tablet See Rx Instructions PO .COMPLEX #6 10/24/22 tabs prednisone 10 mg tablet 10 mg PO DAILY 5 days #5 tabs 10/24/22 <Cheyenne Coy MD - Last Filed: 10/24/22 18:48> Allergies/Adverse Reactions: Allergies Allergy/AdvReac Type Severity Reaction Status Date / Time dog dander [DOGS] Allergy Intermediate Respiratory Verified 10/24/22 18:38 distress ibuprofen [Ibuprofen] Allergy Intermediate STOMACH Verified 10/24/22 18:38 UPSET, abdominal pain, nausea and vomiting shellfish derived Allergy Intermediate Hives Verified 10/24/22 18:38 etanercept [From Enbrel] AdvReac Intermediate Facial Verified 10/24/22 18:38 Swelling metformin AdvReac Intermediate diarrhea Verified 10/24/22 18:38 metronidazole [From FLAGYL] AdvReac Intermediate DIARRHEA Verified 10/24/22 18:38 prednisone AdvReac Intermediate hallucinations, Verified 10/24/22 18:38 higher than 20 <Cheyenne Coy MD - Last Filed: 10/24/22 18:48> Review of Systems Review of Systems: Constitutional : No Weight loss, No Fever, No Chills, No Fatigue, No Malaise ENT/Mouth : No sore throat, No Rhinorrhea Eyes: No Eye Pain, No Swelling, No Redness Cardiovascular : + Chest Pain, + SOB, No Dyspnea on Exertion, No Orthopnea, No Edema, No Palpitations Respiratory : No Cough, No Sputum, No Wheezing Gastrointestinal : No Nausea, No Vomiting, No Diarrhea, No Constipation, No abdominal Pain, No Hematochezia, No Melena Genitourinary : No Dysuria, No Urinary Frequency, No Hematuria, Musculoskeletal : + joint pain, No Myalgias, + Joint Swelling Skin : No Skin Lesions, No rash Neuro : No Weakness, No Numbness, No Dizziness, No Headache Psych : No Anxiety/Panic, No Depression <JOSEF Kim - Last Filed: 10/24/22 22:20> Yes all other systems are reviewed and are negative <JOSEF Kim - Last Filed: 10/24/22 22:20> COUNT INCLUDES THE [facility] Past Medical History Attestation statement: The following information was validated with the patient. <JOSEF Kim - Last Filed: 10/24/22 22:20> Source: old records reviewed and nursing notes reviewed <JOSEF Kim - Last Filed: 10/24/22 22:20> Medical History: Medical History Allergic rhinitis Anxiety Atherosclerotic cardiovascular disease Bipolar 1 disorder, depressed Bloody diarrhea Breast pain, right Bronchial asthma Colitis COPD (chronic obstructive pulmonary disease) COPD exacerbation Cough CVA (cerebral vascular accident) Depression Diabetes type 2, uncontrolled Dyslipidemia Fibromyalgia HLD (hyperlipidemia) Hospital discharge follow-up HTN (hypertension) Hyperkalemia Hyperlipidemia LDL goal <100 Hyperparathyroidism Hypertension Hypothyroid IDDM (insulin dependent diabetes mellitus) Infiltrating ductal carcinoma of left breast, stage 2 Insomnia Irritable bowel Osteoporosis PAD (peripheral artery disease) Rash Reactive airways dysfunction syndrome Restrictive airway disease Seropositive rheumatoid arthritis T2DM (type 2 diabetes mellitus) Thyroid nodule Vitamin D deficiency <Cheyenne Coy MD - Last Filed: 10/24/22 18:48> Surgical History: Surgical History H/O cardiac catheterization H/O: hysterectomy History of bronchoscopy History of bunionectomy of both great toes History of colonoscopy History of esophagogastroduodenoscopy (EGD) History of lumpectomy of left breast History of pubovaginal sling History of tubal ligation Hx of endoscopy <Cheyenne Coy MD - Last Filed: 10/24/22 18:48> Family History Family History: Family History Mother Diabetes HTN (hypertension) Uterus cancer Malignant tumor of head Breast cancer Father Diabetes HTN (hypertension) CVD (cardiovascular disease) Heart problem Maternal Aunt Breast cancer Brother Myocardial infarction S/P CABG x 4 Family/Other FH: mental illness Family/Other Lung cancer Other Mental health disorder <Cheyenne Coy MD - Last Filed: 10/24/22 18:48> Social History Social History: Social History Household Members: Family Household Members Other:: sister Housing: Apartment Are you a primary respiratory care faculty to a significant other at home: No Do you presently have visiting nurse or other home services: Yes (sister=tin tie machine operator automatic) Alcohol intake: never Patient Tobacco Use Status: Current everyday Tobacco user Tobacco use type: Cigarette Cigarettes Per Day: 2 Years Smoked: 50 +/- Smoked in Last 30 Days: Yes e-Cigarette/Vaping Use: Former Use Second Hand Smoke Exposure: Yes Use of substances other than those prescribed or required for medical reasons: No Advance Directives: Yes Advance Directives on File: Yes Advance Directives Date on File: 12/22/21 Patient : No service: No Current occupational status: disabled Current occupation: rt handed Cognitive needs: No Hearing needs: No Vision needs: No <Cheyenne Coy MD - Last Filed: 10/24/22 18:48> Physical Exam Vital Signs: Vital Signs: Last Vital Signs Temp 98.2 F 10/24/22 21:23 Pulse 91 10/24/22 21:44 Resp 16 10/24/22 21:44 BP 127/79 10/24/22 21:23 Pulse Ox 98 10/24/22 21:23 O2 Del Method 10/24/22 21:23 BMI result Body Mass Index 25.9 <Cheeynne Coy MD - Last Filed: 10/24/22 18:48> Vital Signs: Last Vital Signs Temp 98.2 F 10/24/22 21:23 Pulse 91 10/24/22 21:44 Resp 16 12/07/22 21:44 BP 127/79 10/24/22 21:23 Pulse Ox 98 10/24/22 21:23 O2 Del Method 10/24/22 21:23 BMI result Body Mass Index 25.9 vss <JOSEF Kim - Last Filed: 10/24/22 22:20> Appearance: Alert.? Oriented X3.? No acute distress.? Head:? Normocephalic, atraumatic, no step-offs or deformities Eyes: Pupils equal, round and reactive to light.? Neck: Normal inspection.? Neck supple.? CVS: Normal heart rate and rhythm.? Pulses normal.? Respiratory: No respiratory distress.? Breath sounds normal.? Abdomen: Soft and nontender.? Skin: Skin warm and dry.? Normal skin color.? Normal skin turgor.? Extremities: No lower extremity edema.? No calf ttp.? 5/5 strength to bilateral upper and lower extremities Neuro: Oriented X 3.? No motor deficit.? No sensory deficit. CN 2-12 intact <JOSEF Kim - Last Filed: 10/24/22 22:20> Course Course Course Narrative: Patient is a 62-year-old female with a history of rheumatoid arthritis. Presented today with having pain to the right hand. Also complaining of shortness of breath. Long history of COPD. History of smoking. Stayed in the hospital for COPD in the past. Baseline not on oxygen. Had increasing shortness of breath as well. Coughing congestion upper respiratory symptoms. Patient is vaccinated for COVID. No leg swelling. No history of congestive heart failure. History of coronary artery disease. Had an CT earlier this year. No chest pain today. No diaphoresis. <Cheyenne Coy MD - Last Filed: 10/24/22 18:48> Reevaluation(s) Reevaluation #1: CBC with slight leukocytosis 13.8, chemistry with no acute electrolyte abnormalities requiring intervention. Troponin negative, EKG nonischemic unlikely ACS, EKG showing ventricular rate of 121 with sinus tachycardia no ST elevations or inversions concerning for ischemia. BNP within normal limits, low suspicion for CHF. D-dimer negative unlikely PE. Chest x-ray unremarkable. Hand x-ray unremarkable. Patient's vital signs are stable, saturating 98% even after ambulation into the room. Patient not wearing oxygen. Patient appears comfortable no acute distress. Likely viral infection versus bronchitis. Will discharge on prednisone, azithromycin, albuterol inhaler. Advised to return with new or worsening symptoms. <JOSEF Kim - Last Filed: 10/24/22 22:20> Time: 21:16 <JOSEF Kim - Last Filed: 10/24/22 22:20> Reevaluation #2: Second troponin 6.0, still negative, no ischemic changes, patient not comp laining of chest pain or shortness of breath. Reports improvement. Patient will be discharged home with prednisone, azithromycin, albuterol inhaler. Advised to return with any new or worsening symptoms, educated on worrisome signs and symptoms and when to return. At this time I feel comfortable discharge. <JOSEF Kim - Last Filed: 10/24/22 22:20> Time: 22:16 <JOSEF Kim - Last Filed: 10/24/22 22:20> Medications Administered Discontinued Medications Generic Name Dose Route Start Last Admin Trade Name Eitanq PRN Reason Stop Dose Admin Albuterol Sulfate 2.5 mg 10/24/22 18:40 10/24/22 19:13 Albuterol Sulfate (0.083%) 2.5 Mg/3 Ml Vial.Neb INHALE 10/24/22 18:41 2.5 mg ONCE ONE Administration Albuterol Sulfate 5 mg 10/24/22 21:17 10/24/22 21:43 Albuterol Sulfate 2.5 Mg/0.5 Ml Vial.Neb INHALE 10/24/22 21:18 5 mg ONCE ONE Administration Albuterol Sulfate 2.5 mg/ 0 mg 10/24/22 18:40 10/24/22 19:12 Albuterol/Ipratropium 3 ml INHALE 10/24/22 18:41 5 each ONCE ONE Administration Hydromorphone HCl 0.5 mg 10/24/22 18:42 10/24/22 19:19 Hydromorphone Hcl 0.5 Mg/0.5 Ml Syringe IVPUSH 10/24/22 18:43 0.5 mg ONCE ONE Administration Protocol Morphine Sulfate 4 mg 10/24/22 20:18 10/24/22 20:55 Morphine Sulfate 4 Mg/Ml Cartridge IVPUSH 10/24/22 20:19 4 mg ONCE ONE Administration Protocol <Cheyenne Coy MD - Last Filed: 10/24/22 18:48> Medications Administered Discontinued Medications Generic Name Dose Route Start Last Admin Trade Name Mayra PRN Reason Stop Dose Admin Albuterol Sulfate 2.5 mg 10/24/22 18:40 10/24/22 19:13 Albuterol Sulfate (0.083%) 2.5 Mg/3 Ml Vial.Neb INHALE 10/24/22 18:41 2.5 mg ONCE ONE Administration Albuterol Sulfate 5 mg 10/24/22 21:17 10/24/22 21:43 Albuterol Sulfate 2.5 Mg/0.5 Ml Vial.Neb INHALE 10/24/22 21:18 5 mg ONCE ONE Administration Albuterol Sulfate 2.5 mg/ 0 mg 10/24/22 18:40 10/24/22 19:12 Albuterol/Ipratropium 3 ml INHALE 10/24/22 18:41 5 each ONCE ONE Administration Hydromorphone HCl 0.5 mg 10/24/22 18:42 10/24/22 19:19 Hydromorphone Hcl 0.5 Mg/0.5 Ml Syringe IVPUSH 10/24/22 18:43 0.5 mg ONCE ONE Administration Protocol Morphine Sulfate 4 mg 10/24/22 20:18 10/24/22 20:55 Morphine Sulfate 4 Mg/Ml Cartridge IVPUSH 10/24/22 20:19 4 mg ONCE ONE Administration Protocol <JOSEF Kim - Last Filed: 10/24/22 22:20> Medical Decision Making Medical Decision Making MDM Narrative: 62-year-old female presents with atraumatic right hand pain times 2-3 days and upper respiratory symptoms for 2-3 days. Physical examination benign. Will rule out viral infections, pneumonia. Unlikely PE/ACS. However will rule out. Unlikely COPD exacerbation. Plan labs, imaging. <JOSEF Kim - Last Filed: 10/24/22 22:20> Critical Care Time Critical Care Time Critical Care Time: No <JOSEF Kim - Last Filed: 10/24/22 22:20> Discharge Plan Discharge Clinical Impression: Hand pain, right, Upper respiratory virus, Chest pain not due to acute coronary syndrome <Cheyenne Coy MD - Last Filed: 10/24/22 18:48> Patient Disposition: Home, Self-Care <Cheyenne Coy MD - Last Filed: 10/24/22 18:48> Instructions: Chest Pain (ED), Upper Respiratory Infection (ED), Viral Syndrome (ED), Arthralgia (ED) <Cheyenne Coy MD - Last Filed: 10/24/22 18:48> Additional Instructions: Take your medications as prescribed. If you were prescribed antibiotics today, it is important that you take your medication to their entirety, do not skip any doses, do not finish them early. Follow-up with your primary care provider this week. Return to the emergency department with new or worsening symptoms. Such as fevers, chills, chest pain, shortness of breath, nausea, vomiting, dizziness, headache, vision changes, lethargy In case of emergency call 911 <Cheyenne Coy MD - Last Filed: 10/24/22 18:48> Prescriptions: New azithromycin 250 mg tablet See Rx Instructions .ROUTE .COMPLEX Qty: 6 0RF Rx Instructions: For 250 mg dose pack: take 500 mg today (day 1), then 250 mg for 4 days (days 2-5) albuterol sulfate 90 mcg/actuation aerosol powdr breath activated 2 inh inhalation Q4-6H PRN (Reason: shortness of breath or wheezing) Qty: 1 0RF prednisone 10 mg tablet 10 mg PO DAILY 5 Days Qty: 5 0RF No Action (DME) pen needle, diabetic [Comfort EZ Pen [place]] 31 gauge x 5/16 needle See Rx Instructions .ROUTE .MEDSUPPLY Qty: 200 11RF Rx Instructions: Use 1 pen needle 6 times a day (DME) lancets [FreeStyle Lancets] 28 gauge misc See Rx Instructions .Route Qty: 100 3RF Rx Instructions: Use 1 lancet once a day lamotrigine 25 mg tablet 25 mg PO BID 90 Days Qty: 180 1RF pregabalin 150 mg capsule 150 mg PO .COMPLEX Qty: 30 3RF Rx Instructions: 150 mg orally one cap daily in AM; lubiprostone [Amitiza] 8 mcg capsule 8 mcg PO BID 30 Days Qty: 60 3RF albuterol sulfate 90 mcg/actuation HFA aerosol inhaler 2 puff PO Q4-6H Qty: 8.5 3RF trazodone 100 mg tablet 100 mg PO BEDTIME 90 Days Qty: 90 0RF Trulicity 1.5 mg/0.5 mL pen injector 1.5 mg subcut WE 30 Days Qty: 2.5 11RF insulin aspart U-100 [Novolog Flexpen U-100 Insulin] 100 unit/mL (3 mL) insulin pen 2 - 10 unit subcut TIDAC 30 Days Qty: 15 11RF Protocol: Insulin Correction Scale Less than or equal to 110 ---- Give (units): 0 111 to 150 Give (units): 0 151 to 200 Give (units): 2 201 to 250 Give (units): 4 251 to 300 Give (units): 6 301 to 350 Give (units): 8 Greater than 350 Give (units): 10 Call MD if Blood Glucose > : 350 Rx Instructions: Via sliding scale dicyclomine 10 mg capsule 10 mg PO TID PRN (Reason: for abdominal pain) 30 Days Qty: 30 1RF famotidine 20 mg tablet 20 mg PO BEDTIME 90 Days Qty: 90 1RF losartan 25 mg tablet 25 mg PO DAILY Qty: 90 0RF pregabalin [Lyrica] 200 mg capsule 200 mg PO BEDTIME Qty: 30 3RF upltnmrute-wlechqbcotodf-qque 50-325-40 mg tablet 1 tab PO Q6H PRN (Reason: pain) 30 Days Qty: 30 0RF ipratropium-albuterol 0.5 mg-3 mg(2.5 mg base)/3 mL solution for nebulization 3 ml inhalation Q6H PRN (Reason: wheezing) Qty: 180 2RF azithromycin 250 mg tablet 250 mg PO 3XW Qty: 12 2RF pantoprazole 40 mg tablet,delayed release (DR/EC) 40 mg PO BID 90 Days Qty: 180 0RF letrozole 2.5 mg Tablet 2.5 mg PO DAILY Qty: 90 4RF tizanidine 2 mg tablet 1 tab PO BEDTIME PRN (Reason: muscle spasm) ondansetron 4 mg tablet,disintegrating 4 mg PO Q8H PRN (Reason: nausea and vomiting) Qty: 14 0RF nitroglycerin 0.4 mg tablet, sublingual 0.4 mg sublingual Q5M PRN (Reason: Chest Pain) atorvastatin 80 mg tablet 80 mg PO DAILY 90 Days Qty: 90 1RF Rx Instructions: patient lost recent RX, please fill this as emergency RX this one time Brilinta 90 mg tablet 90 mg PO BID 90 Days Qty: 180 1RF Rx Instructions: Please fill Rx today, patient lost previous RX, fill as emergency this one time (DME) FreeStyle Lite Strips Strip MISCELLANEOUS DAILY Qty: 100 1RF Rx Instructions: Use 1 test strip three times a day Xiidra 5 % dropperette 1 drp ophthalmic (eye) BID sulfasalazine 500 mg tablet See Rx Instructions .ROUTE .COMPLEX Qty: 60 0RF Rx Instructions: Take 1 tab po daily for 1 week, then increase to 1 tab po BID prednisone 5 mg tablet See Rx Instructions .ROUTE .COMPLEX Rx Instructions: 10mg today, then 10mg in am and 5mg in pm x 3 days, then 5mg BID x 3 days, then 5mg daily; <Cheyenne Coy MD - Last Filed: 10/24/22 18:48> Referrals: Adela Gipson MD [Primary Care Provider] - 3 days <Cheyenne Coy MD - Last Filed: 10/24/22 18:48>
--- NOTE | 2022-10-24 18:47 | ECG_ITS ---
Test Reason : SOB Blood Pressure : / mmHG Vent. Rate : 121 BPM Atrial Rate : 121 BPM P-R Int : 128 ms QRS Dur : 084 ms QT Int : 316 ms P-R-T Axes : 082 081 045 degrees QTc Int : 448 ms Sinus tachycardia Otherwise normal ECG When compared with ECG of 16-AUG-2022 15:45, No significant change was found Referred By: Cheyenne Coy Electronically Signed By:MARIA ELENA APODACA MD
[2022-10-24] MEDS: Albuterol Sulfate 2.5 MG, Albuterol/Iprat 2.5/0.5MG 3 ML 3 ML INHALE (19:12)
[2022-10-24 19:13] VITALS: PULSE 95; RESP 18; O2SAT 95
[2022-10-24] MEDS: Albuterol Sulfate (0.083%) 2.5 MG/3 ML VIAL.NEB INHALE (19:13)
[2022-10-24] MEDS: HYDROmorphone HCl 0.5 MG/0.5 ML SYRINGE IVPUSH (19:19)
[2022-10-24 19:25] VITALS: BP 143/93; PULSE 102; RESP 18; TEMP 37.1; O2SAT 98
[2022-10-24 19:40] VITALS: BP 145/82; PULSE 99; RESP 18; TEMP 36.8; O2SAT 98
[2022-10-24 19:57] LABS: Basophils Percent Auto 0.3 % (0-2); Eosinophils Absolute Auto 0.1 X10*3/uL (0.0-0.4); Eosinophils Percent Auto 0.5 % (0-4); Hematocrit 36.6 % (37.0-47.0); Hemoglobin 12.4 g/dl (12.0-16.0); Imm Gran Abs Auto 0.09 X10*3/uL (0.00-0.03); Imm Gran Pct Auto 0.7 % (0.0-0.4); Lymphocytes Absolute Auto 5.2 X10*3/uL (1.2-4.9); Lymphocytes Percent Auto 37.6 % (20-40); MANUAL DIFF FLAG SCAN; Mean Corpuscular HGB Conc 33.9 g/dl (31.0-35.0); Mean Corpuscular Hemoglobin 28.9 pg (27.0-33.0); Mean Corpuscular Volume 85.3 fL (80.0-98.0); Mean Platelet Volume 10.3 fL (9.4-12.3); Monocytes Absolute Auto 0.6 X10*3/uL (0.1-1.2); Monocytes Percent Auto 4.4 % (2-11); Neutrophils Absolute Auto 7.8 x10*3/uL (2.0-8.3); Neutrophils Percent Auto 56.5 % (45-73); Platelet Count 283 X10*3/uL (160-400); Red Blood Count 4.29 X10*6/uL (4.20-5.50); Red Cell Distribution Width 13.3 % (11.0-16.0); SCAN SMEAR FLAG 1; White Blood Count 13.8 X10*3/uL (4.8-10.8)
[2022-10-24 20:14] LABS: Anion Gap 13 (12-20); Blood Urea Nitrogen 15 mg/dL (9-16); Calcium 8.8 mg/dL (8.4-10.2); Carbon Dioxide 24 mmol/L (22-29); Chloride 103 mmol/L (96-108); Creatinine Clr Calc Pharmacy 50.4; Estimated Glomerular Filt Rate > 60; Glucose Random 348 mg/dL (60-115); Potassium 3.8 mmol/L (3.3-5.1); Sodium 136 mmol/L (135-145)
[2022-10-24 20:21] LABS: Troponin-I High Sensitivity 5.3 ng/L (<3.5-17.0)
[2022-10-24 20:22] LABS: B Type Natriuretic Peptide 13 pg/mL (<100)
--- NOTE | 2022-10-24 20:22 | ED_ITS ---
HPI - SOB/Dyspnea General Chief Complaint: Dyspnea Stated Complaint: rheumatoid paid Time Seen by Provider: 10/24/22 19:23 Source: patient Mode of arrival: ambulatory Limitations: no limitations History of Present Illness HPI Narrative: 62 year old female hisotry of headaches, hyperlipedemia, T2DM, ashma, allergic rhinitis, breast cancer, hepatitis A, CAD, HTN, GERD, COPD, hyperparathyroidism, rheumatoid arthritis presents to the emergency department with complaints of atruamatic right hand pain X 2-3 days worsening, patient tells me that it feels like her typical RA flare. She reports its worse w/ movment better at rest. Also coming in today with pleuritic chest pain/ SOB for the past 3 days, she tells me she has COPD however this feels slightly different she tells me she also feels a strange discomfort underneath her left posterior ribs when she takes a deep breath. Patient has no history of PE or DVT, not on blood thinners. Patient denies trauma or falls. Denies fevers, chills, nausea, vomiting, abdominal pain, headache, vision changes, dizziness, lower extremity pain or swelling, calf pain. No known sick contacts. Related Data Home Medications Medication Instructions Recorded Confirmed nitroglycerin 0.4 mg sublingual 0.4 mg sublingual Q5M PRN Chest 01/03/22 06/17/23 tablet Pain aspirin 81 mg tablet,delayed 81 mg PO DAILY 06/06/23 06/17/23 release azithromycin 250 mg tablet 250 mg PO 3XW 06/17/23 06/17/23 [id number] 1 tab PO Q6H PRN pain 06/17/23 06/17/23 50 mg-325 mg-40 mg tablet codeine 10 mg-guaifenesin 100 mg/5 10 ml PO Q4-6H PRN cough 06/17/23 06/17/23 mL oral liquid cyclobenzaprine 10 mg tablet mg PO 06/17/23 06/17/23 Previous Rx's Medication Instructions Recorded lancets 28 gauge (FreeStyle #100 ea 06/07/22 Lancets) pen needle, diabetic 31 gauge x #200 ea 06/07/22 5/16 (Comfort EZ Pen [place]) Novolog FlexPen U-100 Insulin 100 2 - 10 unit subcut TIDAC 30 days 08/28/22 unit/mL (3 mL) subcutaneous #15 mL (insulin aspart U-100) pantoprazole 40 mg tablet,delayed 40 mg PO BID 90 days #180 tabs 10/18/22 release pregabalin 200 mg capsule (Lyrica) 200 mg PO BID #60 caps 01/02/23 budesonide 0.5 mg/2 mL suspension 0.25 mg inhalation BID ASTHMA/COPD 01/04/23 for nebulization 30 days #60 mL famotidine 20 mg tablet 20 mg PO BEDTIME 90 days #90 tabs 01/10/23 lubiprostone 8 mcg capsule 8 mcg PO BID 90 days #180 caps 01/10/23 (Amitiza) walker #1 ea 02/08/23 insulin degludec 100 unit/mL (3 20 unit (0.2 mL) subcut BEDTIME 90 02/11/23 mL) subcutaneous pen (Tresiba days #18 mL FlexTouch U-100 insulin) trazodone 100 mg tablet 100 mg PO BEDTIME 90 days #90 tabs 02/11/23 letrozole 2.5 mg tablet 2.5 mg PO DAILY #90 tabs 02/12/23 Ventolin HFA 90 mcg/actuation 1 inh inhalation QID PRN shortness 02/28/23 aerosol inhaler (albuterol sulfate) of breath or wheezing 30 days #18 grams prednisone 5 mg tablet 5 mg PO DAILY for asthma #30 tabs 03/21/23 dulaglutide 1.5 mg/0.5 mL 1.5 mg (0.5 mL) subcut WE@0900 90 04/22/23 subcutaneous pen injector days #6.5 mL (Trulicity) ondansetron 8 mg disintegrating 8 mg PO Q8H PRN nausea and 04/24/23 tablet vomiting 30 days #90 tabs tramadol 50 mg tablet 50 mg PO Q6H PRN pain #20 tabs 04/24/23 ipratropium 0.5 mg-albuterol 3 mg 3 ml inhalation Q6H #180 mL 05/17/23 (2.5 mg base)/3 mL nebulization soln carisoprodol 250 mg tablet (Soma) 250 mg PO TID PRN muscle pain #20 05/23/23 tabs blood sugar diagnostic (FreeStyle #100 ea 05/27/23 Lite Strips) levalbuterol tartrate 45 2 puff inhalation Q4-6H PRN 06/13/23 mcg/actuation aerosol inhaler shortness of breath 30 days #15 grams ipratropium bromide 0.02 % 2.5 ml inhalation Q6H PRN 06/14/23 solution for inhalation shortness of breath or wheezing #150 mL Allergies Allergy/AdvReac Type Severity Reaction Status Date / Time dog dander [DOGS] Allergy Intermediate Respiratory Verified 06/17/23 13:46 distress shellfish derived Allergy Intermediate Hives Verified 06/17/23 13:46 methylprednisolone Allergy Rash Verified 06/17/23 13:46 etanercept [From Enbrel] AdvReac Intermediate Facial Verified 06/17/23 13:46 Swelling ibuprofen [Ibuprofen] AdvReac Intermediate STOMACH Verified 06/17/23 13:46 UPSET, abdominal pain, nausea and vomiting metformin AdvReac Intermediate Diarrhea Verified 06/17/23 13:46 metronidazole [From FLAGYL] AdvReac Intermediate Diarrhea Verified 06/17/23 13:46 prednisone AdvReac Intermediate hallucinations, Verified 06/17/23 13:46 higher than 20 Review of Systems Review of Systems: Constitutional : No Weight loss, No Fever, No Chills, No Fatigue, No Malaise ENT/Mouth : No sore throat, No Rhinorrhea Eyes: No Eye Pain, No Swelling, No Redness Cardiovascular : + Chest Pain, + SOB, No Dyspnea on Exertion, No Orthopnea, No Edema, No Palpitations Respiratory : No Cough, No Sputum, No Wheezing Gastrointestinal : No Nausea, No Vomiting, No Diarrhea, No Constipation, No abdominal Pain, No Hematochezia, No Melena Genitourinary : No Dysuria, No Urinary Frequency, No Hematuria, Musculoskeletal : + joint pain, No Myalgias, + Joint Swelling Skin : No Skin Lesions, No rash Neuro : No Weakness, No Numbness, No Dizziness, No Headache Psych : No Anxiety/Panic, No Depression All other systems reviewed and are negative Yes all other systems are reviewed and are negative [facility] Past Medical History Attestation statement: The following information was validated with the patient. Source: old records reviewed and nursing notes reviewed Medical History Allergic rhinitis Anxiety Anxiety Atherosclerotic cardiovascular disease Bipolar 1 disorder, depressed Bloody diarrhea Breast pain, right Bronchial asthma CAD (coronary artery disease) Colitis COPD (chronic obstructive pulmonary disease) COPD exacerbation Cough CVA (cerebral vascular accident) Depression Diabetes type 2, uncontrolled Dyslipidemia Fibromyalgia GERD (gastroesophageal reflux disease) HLD (hyperlipidemia) Hospital discharge follow-up HTN (hypertension) Hyperkalemia Hyperlipidemia LDL goal <100 Hyperparathyroidism Hypertension Hypothyroid IDDM (insulin dependent diabetes mellitus) Infiltrating ductal carcinoma of left breast, stage 2 Insomnia Irritable bowel Osteoporosis PAD (peripheral artery disease) Rash Reactive airways dysfunction syndrome Restrictive airway disease Seropositive rheumatoid arthritis T2DM (type 2 diabetes mellitus) Thyroid nodule Vitamin D deficiency Surgical History H/O cardiac catheterization H/O: hysterectomy History of bronchoscopy History of bunionectomy of both great toes History of colonoscopy History of esophagogastroduodenoscopy (EGD) History of lumpectomy of left breast History of pubovaginal sling History of tubal ligation Hx of endoscopy Hx of sigmoidoscopy Family History Family History Mother Diabetes HTN (hypertension) Uterus cancer Malignant tumor of head Breast cancer Father Diabetes HTN (hypertension) CVD (cardiovascular disease) Heart problem Maternal Aunt Breast cancer Brother Myocardial infarction S/P CABG x 4 Family/Other FH: mental illness Family/Other Lung cancer Other Mental health disorder Social History Social History Household Members: Family Household Members Other:: sister Housing: House Are you a primary health care manager to a significant other at home: No Do you presently have visiting nurse or other home services: Yes (sister is certified forklift operator) Alcohol intake: never Patient Tobacco Use Status: Current everyday Tobacco user Tobacco use type: Cigarette Years Smoked: 50 +/- e-Cigarette/Vaping Use: Never Used Second Hand Smoke Exposure: No Advance Directives Date on File: 12/22/21 service: No Current occupational status: disabled Current occupation: rt handed Cognitive needs: No Hearing needs: No Vision needs: Yes Physical Exam Vital Signs: Vital Signs: Last Vital Signs Temp 98.2 F 10/24/22 21:23 Pulse 91 10/24/22 21:44 Resp 16 10/24/22 21:44 BP 127/79 10/24/22 21:23 Pulse Ox 98 10/24/22 21:23 O2 Del Method Room Air 10/24/22 21:23 BMI result Body Mass Index 25.9 vss Appearance: Alert.? Oriented X3.? No acute distress.? Head: Normocephalic, atraumatic, no step-offs or deformities Eyes: Pupils equal, round and reactive to light.? Neck: Normal inspection.? Neck supple.? CVS: Normal heart rate and rhythm.? Pulses normal.? Respiratory: No respiratory distress.? Breath sounds normal.? Abdomen: Soft and nontender.? Skin: Skin warm and dry.? Normal skin color.? Normal skin turgor.? Extremities: No lower extremity edema.? No calf ttp. 5/5 strength to bilateral upper and lower extremities Neuro: Oriented X 3.? No motor deficit.? No sensory deficit. CN 2-12 intact Course Course Course Narrative: 62 year old female hisotry of headaches, hyperlipedemia, T2DM, ashma, allergic rhinitis, breast cancer, hepatitis A, CAD, HTN, GERD, COPD, hyperparathyroidism, rheumatoid arthritis presents to the emergency department with complaints of atruamatic right hand pain X 2-3 days worsening, patient tells me that it feels like her typical RA flare. She reports its worse w/ movment better at rest. Also coming in today with pleuritic chest pain/ SOB for the past 3 days, she tells me she has COPD however this feels slightly different she tells me she also feels a strange discomfort underneath her left posterior ribs when she takes a deep breath. Patient has no history of PE or DVT, not on blood thinners. Patient denies trauma or falls. Denies fevers, chills, nausea, vomiting, abdominal pain, headache, vision changes, dizziness, lower extremity pain or swelling, calf pain. No known sick contacts. Reevaluation(s) Reevaluation #1: I did a rapid medical assessment on this patient, I was not the primary provider, primary provider was Dr. Cheyenne Coy on 10/24/22 please refer to his chart. Time: 13:54 Medications Administered Discontinued Medications Generic Name Dose Route Start Last Admin Trade Name Freq PRN Reason Stop Dose Admin Albuterol Sulfate 2.5 mg 10/24/22 18:40 10/24/22 19:13 Albuterol Sulfate (0.083%) 2.5 Mg/3 Ml Vial.Neb INHALE 10/24/22 18:41 2.5 mg ONCE ONE Administration Albuterol Sulfate 5 mg 10/24/22 21:17 10/24/22 21:43 Albuterol Sulfate 2.5 Mg/0.5 Ml Vial.Neb INHALE 10/24/22 21:18 5 mg ONCE ONE Administration Albuterol Sulfate 2.5 mg/ 0 mg 10/24/22 18:40 10/24/22 19:12 Albuterol/Ipratropium 3 ml INHALE 10/24/22 18:41 5 each ONCE ONE Administration Hydromorphone HCl 0.5 mg 10/24/22 18:42 10/24/22 19:19 Hydromorphone Hcl 0.5 Mg/0.5 Ml Syringe IVPUSH 10/24/22 18:43 0.5 mg ONCE ONE Administration Protocol Morphine Sulfate 4 mg 10/24/22 20:18 10/24/22 20:55 Morphine Sulfate 4 Mg/Ml Cartridge IVPUSH 10/24/22 20:19 4 mg ONCE ONE Administration Protocol Medical Decision Making Medical Decision Making MDM Narrative: 2026 Critical Care Time Critical Care Time Critical Care Time: No Discharge Plan Discharge Clinical Impression: Hand pain, right, Upper respiratory virus, Chest pain not due to acute coronary syndrome Patient Disposition: Home, Self-Care Instructions: Chest Pain (ED), Upper Respiratory Infection (ED), Viral Syndrome (ED), Arthralgia (ED) Additional Instructions: Take your medications as prescribed. If you were prescribed antibiotics today, it is important that you take your medication to their entirety, do not skip any doses, do not finish them early. Follow-up with your primary care provider this week. Return to the emergency department with new or worsening symptoms. Such as fevers, chills, chest pain, shortness of breath, nausea, vomiting, dizziness, headache, vision changes, lethargy In case of emergency call 911 Prescriptions: No Action (DME) pen needle, diabetic [Comfort EZ Pen [place]] 31 gauge x 5/16 needle See Rx Instructions .ROUTE .MEDSUPPLY Qty: 200 11RF Rx Instructions: Use 1 pen needle 6 times a day (DME) lancets [FreeStyle Lancets] 28 gauge misc See Rx Instructions .Route Qty: 100 3RF Rx Instructions: Use 1 lancet once a day insulin aspart U-100 [Novolog FlexPen U-100 Insulin] 100 unit/mL (3 mL) insulin pen 2 - 10 unit subcut TIDAC 30 Days Qty: 15 11RF Protocol: Insulin Correction Scale Less than or equal to 110 ---- Give (units): 0 111 to 150 Give (units): 0 151 to 200 Give (units): 2 201 to 250 Give (units): 4 251 to 300 Give (units): 6 301 to 350 Give (units): 8 Greater than 350 Give (units): 10 Call MD if Blood Glucose > : 350 Rx Instructions: Via sliding scale pantoprazole 40 mg tablet,delayed release (DR/EC) 40 mg PO BID 90 Days Qty: 180 0RF budesonide 0.5 mg/2 mL suspension for nebulization 0.25 mg inhalation BID 30 Days Qty: 60 3RF (DEVIN) fadumo [facility] [place] See Rx Instructions .Route Qty: 1 0RF Rx Instructions: with seat trazodone 100 mg tablet 100 mg PO BEDTIME 90 Days Qty: 90 0RF insulin degludec [Tresiba FlexTouch U-100] 100 unit/mL (3 mL) insulin pen 20 unit subcut BEDTIME 90 Days Qty: 18 1RF letrozole 2.5 mg Tablet 2.5 mg PO DAILY Qty: 90 3RF albuterol sulfate [Ventolin HFA] 90 mcg/actuation HFA aerosol inhaler 1 inh inhalation QID PRN (Reason: shortness of breath or wheezing) 30 Days Qty: 18 2RF prednisone 5 mg tablet 5 mg PO DAILY Qty: 30 1RF Trulicity 1.5 mg/0.5 mL pen injector 1.5 mg subcut WE@0900 90 Days Qty: 6.5 2RF ipratropium-albuterol 0.5 mg-3 mg(2.5 mg base)/3 mL solution for nebulization 3 ml inhalation Q6H Qty: 180 0RF (DME) FreeStyle Lite Strips Strip MISCELLANEOUS DAILY Qty: 100 1RF Rx Instructions: Use 1 test strip three times a day levalbuterol tartrate 45 mcg/actuation HFA aerosol inhaler 2 puff inhalation Q4-6H PRN (Reason: shortness of breath) 30 Days Qty: 15 3RF ipratropium bromide 0.02 % solution 2.5 ml inhalation Q6H PRN (Reason: shortness of breath or wheezing) Qty: 150 3RF tramadol 50 mg tablet 50 mg PO Q6H PRN (Reason: pain) Qty: 20 0RF nitroglycerin 0.4 mg tablet, sublingual 0.4 mg sublingual Q5M PRN (Reason: Chest Pain) carisoprodol [Soma] 250 mg tablet 250 mg PO TID PRN (Reason: muscle pain) Qty: 20 0RF aspirin 81 mg tablet,delayed release (DR/EC) 81 mg PO DAILY ondansetron 8 mg tablet,disintegrating 8 mg PO Q8H PRN (Reason: nausea and vomiting) 30 Days Qty: 90 0RF lubiprostone [Amitiza] 8 mcg capsule 8 mcg PO BID 90 Days Qty: 180 1RF famotidine 20 mg tablet 20 mg PO BEDTIME 90 Days Qty: 90 1RF pregabalin [Lyrica] 200 mg capsule 200 mg PO BID Qty: 60 3RF codeine-guaifenesin 10-100 mg/5 mL liquid 10 ml PO Q4-6H PRN (Reason: cough) cyclobenzaprine 10 mg tablet PO azithromycin 250 mg tablet 250 mg PO 3XW [id number] 50-325-40 mg tablet 1 tab PO Q6H PRN (Reason: pain) Referrals: Adela Gipson MD [Primary Care Provider] - 3 days Stand Alone Forms: Work/School Release Interventions: ED Discharge Assessment Last Done: 10/24/22 22:37 Discharge Date/Time: 10/24/22 22:37
[2022-10-24 20:29] LABS: SLIDE REVIEW VERIFIED
[2022-10-24 20:36] LABS: Influenza A PCR NEGATIVE (Negative); Influenza B PCR NEGATIVE (Negative); Resp Syncy Virus RNA Qual PCR NEGATIVE (Negative); SARS COV2 PCR INHOUSE NEGATIVE (Negative)
[2022-10-24] MEDS: Morphine Sulfate 4 MG/ML CARTRIDGE IVPUSH (20:55)
[2022-10-24 21:04] LABS: D Dimer High Sensitivity 170 NG/ML
[2022-10-24 21:23] VITALS: BP 127/79; PULSE 91; RESP 16; TEMP 36.8; O2SAT 98
[2022-10-24] MEDS: Albuterol Sulfate 2.5 MG/0.5 ML VIAL.NEB 5 MG INHALE (21:43)
[2022-10-24 21:44] VITALS: PULSE 91; RESP 16; O2SAT 95
--- NOTE | 2022-10-24 22:36 | PC.NURSE ---
Discharge instructions reviewed with pt. Pt verbalizes understanding.
== END 2022-10-24 22:37 | disposition home or self-care (01) ==
PROVIDERS: Emergency Medicine Emergency Medical Services; Physician Assistant; Emergency Provider Internal Medicine; PCP Internal Medicine
DX: R06.02 Shortness of breath (principal); R51.9 Headache, unspecified; I25.10 Atherosclerotic heart disease of native coronary artery without angina pectoris; F17.210 Nicotine dependence, cigarettes, uncomplicated; M79.642 Pain in left hand; M79.641 Pain in right hand; R13.10 Dysphagia, unspecified; Z20.822 Contact with and (suspected) exposure to COVID-19; Z71.6 Tobacco abuse counseling; Z79.899 Other long term (current) drug therapy
CPT/HCPCS: 0241U; 36415; 71045; 73130; 74220; 80048; 83880; 84484; 85025; 85379; 93005; 94640; 96374; 96375; 99285; J1170; J2270

== ENCOUNTER → 2022-10-29 10:09 | Outpatient (BNVA) | payer MEDICARE, MEDICAID, SELFPAY ==
[2022-09-19 10:26] VITALS: BP 100/64; BP 102/48; BP 110/70; BMI 25.5
== END ==
PROVIDERS: PCP Internal Medicine; Visit Provider Internal Medicine
DX: J44.9 Chronic obstructive pulmonary disease, unspecified (principal); J45.909 Unspecified asthma, uncomplicated; J30.9 Allergic rhinitis, unspecified; R05.9 Cough, unspecified; F17.210 Nicotine dependence, cigarettes, uncomplicated; Z79.52 Long term (current) use of systemic steroids; Z79.899 Other long term (current) drug therapy
CPT/HCPCS: 99212

== ENCOUNTER → 2022-11-01 07:49 | Outpatient (BNVA) | payer MEDICARE, MEDICAID, SELFPAY ==
[2022-09-19 10:26] VITALS: BP 100/64; BP 102/48; BP 110/70; BMI 25.5
== END ==
PROVIDERS: PCP Internal Medicine; Visit Provider Nurse Practitioner Family
DX: M05.9 Rheumatoid arthritis with rheumatoid factor, unspecified (principal); M79.7 Fibromyalgia; Z79.52 Long term (current) use of systemic steroids; Z79.899 Other long term (current) drug therapy
CPT/HCPCS: 99212

== ENCOUNTER 2022-11-02 14:31 | Emergency (ER) | payer MEDICARE, MEDICAID, SELFPAY ==
[2022-09-19 10:26] VITALS: BP 100/64; BP 102/48; BP 110/70; BMI 25.5
--- NOTE | ~2022-11-02 | XR_ITS ---
EXAMINATION: XR CHEST CLINICAL INFORMATION: Cough with nausea vomiting diarrhea and abdominal pain COMPARISON: Chest x-ray 10/24/2022 TECHNIQUE: 2 views of the chest were obtained. FINDINGS: The lungs are clear. No airspace consolidation, pleural effusion, or pneumothorax. The cardiomediastinal silhouette is within normal limits. No acute osseous injury. Chronic/healed fracture deformity of the posterior right sixth rib noted. XR/XR chest 2V IMPRESSION: No acute pulmonary process.
--- NOTE | ~2022-11-02 | CT_ITS ---
EXAMINATION: CT ABDOMEN AND PELVIS WITH CONTRAST CLINICAL INFORMATION: 08/16/2022 CT scan of the chest abd pain COMPARISON: None. TECHNIQUE: Multidetector volumetric imaging was performed from the superior aspect of the liver through the pubic symphysis following administration of 100 mL Omnipaque 300 intravenous contrast. Sagittal and coronal reformatted images were obtained on the technologist workstation.. This CT examination was performed using dose optimization techniques as appropriate, variously including the following: *Automated exposure control *Adjustment of mA and/or kV according to patient size (this includes techniques or standardized protocols for targeted exams where dose is matched to indication/reason for exam; i.e. extremities or head) *Use of iterative reconstruction technique DLP: 418 mGy-cm FINDINGS: LUNG BASES: The visualized lung bases are unremarkable. LIVER, GALLBLADDER, AND BILIARY TREE: The liver is normal in size, shape, and attenuation. No focal hepatic lesion or biliary ductal dilatation is present. The gallbladder is unremarkable with no evidence of radiopaque gallstones, gallbladder wall thickening, or obvious pericholecystic inflammatory changes. PANCREAS: Unremarkable. SPLEEN: Unremarkable. ADRENAL GLANDS: Unremarkable. KIDNEYS AND URETERS: The kidneys are normal in size, shape, and attenuation. No hydronephrosis, hydroureter, or calculi seen. No perinephric stranding. BLADDER: Unremarkable. GASTROINTESTINAL TRACT: Scattered colonic diverticulosis but no colonic wall thickening or pericolonic inflammatory change to suggest diverticulitis. Unremarkable appendix in the right lower quadrant. Visualized small bowel also unremarkable. Stomach is relatively distended ABDOMINAL WALL: Tiny fat-containing umbilical hernia LYMPHOVASCULAR STRUCTURES: Prominent vascular calcification within the aorta iliac system PELVIC VISCERA: Presumably surgically absent OSSEOUS STRUCTURES: Unremarkable. CT/CT abdomen pelvis w IV con IMPRESSION: Chronic appearing changes as described. I do not appreciate any acute intra-abdominal process.
--- NOTE | 2022-11-02 14:46 | ED.ABDPAIN ---
HPI - Abdominal Pain General Chief Complaint: General Medical <JOSEF Sood - Last Filed: 11/02/22 14:50> Stated Complaint: Nausea Vomiting Weakness <JOSEF Sood - Last Filed: 11/02/22 14:50> Time Seen by Provider: 11/02/22 16:19 <JOSEF Sood - Last Filed: 11/02/22 14:50> Source: patient <JOSEF Montero - Last Filed: 11/02/22 23:15> Mode of arrival: ambulatory <JOSEF Montero - Last Filed: 11/02/22 23:15> Limitations: no limitations <JOSEF Montero - Last Filed: 11/02/22 23:15> History of Present Illness HPI narrative: Patient is a 62 year old assigned female at with a history of HTN, colitis, and DM presenting to the emergency department today with abdominal pain, nausea, vomiting, and diarrhea. Patient states that her sister is having similar symptoms and they have both been feeling that way since eating at the same restaurant last night. Patient denies any dizziness, lightheadedness, fever, chills, blurry vision, double vision, loss of vision, chest pain, difficulty breathing, shortness of breath, back pain, night sweats, pain with urination, increased urinary frequency, increased urinary urgency, blood in her urine or stool, syncope or a near syncopal episode, recent trauma or falls, bowel incontinence, bladder incontinence, bowel retention, bladder retention, or any other complaints at this time. <JOSEF Montero - Last Filed: 11/02/22 23:15> MD elicited complaint: abdominal pain <JOSEF Montero - Last Filed: 11/02/22 23:15> Onset (ago): hour(s) <JOSEF Montero - Last Filed: 11/02/22 23:15> Pain Consistency: constant <JOSEF Montero - Last Filed: 11/02/22 23:15> Location: diffuse <JOSEF Montero - Last Filed: 11/02/22 23:15> Severity: mild <JOSEF Montero - Last Filed: 11/02/22 23:15> Pain scale (0-10): 4 <JOSEF Montero - Last Filed: 11/02/22 23:15> Quality: cramping and aching <JOSEF Montero - Last Filed: 11/02/22 23:15> Radiation: none <JOSEF Montero Last Filed: 11/02/22 23:15> Exacerbating factors: nothing <JOSEF Montero Last Filed: 11/02/22 23:15> Relieving factors: nothing <JOSEF Montero Last Filed: 11/02/22 23:15> Context: possible food poisoning <JOSEF Montero - Last Filed: 11/02/22 23:15> Associated symptoms: nausea, vomiting and diarrhea <JOSEF Montero Last Filed: 11/02/22 23:15> Related Data Home Medications: Home Medications Medication Instructions Recorded Confirmed tizanidine 2 mg tablet 1 tab PO BEDTIME PRN muscle spasm 12/26/21 10/25/22 nitroglycerin 0.4 mg sublingual 0.4 mg sublingual Q5M PRN Chest 01/03/22 10/25/22 tablet Pain lifitegrast 5 % eye drops in a 1 drp ophthalmic (eye) BID 06/11/22 10/25/22 dropperette (Xiidra) Previous Rx's Medication Instructions Recorded letrozole 2.5 mg tablet 2.5 mg PO DAILY #90 tabs 11/08/21 atorvastatin 80 mg tablet 80 mg PO DAILY 90 days #90 tabs 02/06/22 ticagrelor 90 mg tablet (Brilinta) 90 mg PO BID 90 days #180 tabs 02/06/22 lancets 28 gauge (FreeStyle #100 ea 06/07/22 Lancets) pen needle, diabetic 31 gauge x #200 ea 06/07/2204/02 (Comfort EZ Pen [place]) lamotrigine 25 mg tablet 25 mg PO BID 90 days #180 tabs 06/11/22 ondansetron 4 mg disintegrating 4 mg PO Q8H PRN nausea and 06/29/22 tablet vomiting #14 tabs pregabalin 150 mg capsule 150 mg PO .COMPLEX #30 caps 06/29/22 lubiprostone 8 mcg capsule 8 mcg PO BID 30 days #60 caps 07/18/22 (Amitiza) trazodone 100 mg tablet 100 mg PO BEDTIME 90 days #90 tabs 08/02/22 dulaglutide 1.5 mg/0.5 mL 1.5 mg (0.5 mL) subcut WE 30 days 08/07/22 subcutaneous pen injector #2.5 mL (Trulicity) Novolog Flexpen U-100 Insulin 100 2 - 10 unit subcut TIDAC 30 days 08/28/22 unit/mL (3 mL) subcutaneous #15 mL (insulin aspart U-100) dicyclomine 10 mg capsule 10 mg PO TID PRN for abdominal 08/28/22 pain 30 days #30 caps famotidine 20 mg tablet 20 mg PO BEDTIME 90 days #90 tabs 09/07/22 losartan 25 mg tablet 25 mg PO DAILY #90 tabs 09/07/22 blood sugar diagnostic (FreeStyle #100 ea 09/26/22 Lite Strips) pregabalin 200 mg capsule (Lyrica) 200 mg PO BEDTIME #30 caps 10/01/22 ocaeddypdo-phcbonkhbyicy-pasbzgkf 1 tab PO Q6H PRN pain 30 days #30 10/02/22 50 mg-325 mg-40 mg tablet tabs azithromycin 250 mg tablet 250 mg PO 3XW for asthma #12 tabs 10/17/22 ipratropium 0.5 mg-albuterol 3 mg 3 ml inhalation Q6H PRN wheezing 10/17/22 (2.5 mg base)/3 mL nebulization #180 mL soln sulfasalazine 500 mg tablet See Rx Instructions .Route 10/17/22 .COMPLEX #60 tabs pantoprazole 40 mg tablet,delayed 40 mg PO BID 90 days #180 tabs 10/18/22 release albuterol sulfate 90 mcg/actuation 2 inh inhalation Q4-6H PRN 10/24/22 breath activated powder inhaler shortness of breath or wheezing #1 ea morphine 15 mg immediate release 15 mg PO BID PRN pain #8 tabs 10/24/22 tablet prednisone 10 mg tablet 10 mg PO DAILY 5 days #5 tabs 10/24/22 albuterol sulfate 90 mcg/actuation 2 puff PO Q4-6H #8.5 ea 10/26/22 aerosol inhaler <JOSEF Sood - Last Filed: 11/02/22 14:50> Allergies/Adverse Reactions: Allergies Allergy/AdvReac Type Severity Reaction Status Date / Time dog dander [DOGS] Allergy Intermediate Respiratory Verified 11/01/22 08:30 distress ibuprofen [Ibuprofen] Allergy Intermediate STOMACH Verified 11/01/22 08:30 UPSET, abdominal pain, nausea and vomiting shellfish derived Allergy Intermediate Hives Verified 11/01/22 08:30 etanercept [From Enbrel] AdvReac Intermediate Facial Verified 11/01/22 08:30 Swelling metformin AdvReac Intermediate diarrhea Verified 11/01/22 08:30 metronidazole [From FLAGYL] AdvReac Intermediate DIARRHEA Verified 11/01/22 08:30 prednisone AdvReac Intermediate hallucinations, Verified 11/01/22 08:30 higher than 20 <JOSEF Sood - Last Filed: 11/02/22 14:50> Review of Systems Constitutional: Reports no additional constitutional complaints, Denies chills, Denies fever(s) and Denies night sweats <JOSEF Montero Last Filed: 11/02/22 23:15> Eyes: Reports no additional eye complaints, Denies blurry vision, Denies change in vision, Denies diplopia, Denies eye discharge, Denies loss of vision and Denies eye pain <JOSEF Montero Last Filed: 11/02/22 23:15> Denies dizziness <JOSEF Montero Last Filed: 11/02/22 23:15> Cardiovascular: Reports no additional cardiovascular complaints, Denies chest pain, Denies lightheadedness, Denies Loss of Consciousness and Denies dyspnea <JOSEF Montero Last Filed: 11/02/22 23:15> Respiratory: Reports no additional respiratory complaints and Denies dyspnea <JOSEF Montero Last Filed: 11/02/22 23:15> Gastrointestinal: Reports no additional gastrointestinal complaints, Reports abdominal pain, Denies melena, Denies hematochezia, Denies change in bowel habits, Denies change in stool character, Reports diarrhea, Reports nausea and Reports vomiting <JOSEF Montero Last Filed: 11/02/22 23:15> Genitourinary: Denies hematuria, Denies urinary frequency, Denies dysuria, Denies urinary incontinence, Denies urinary hesitancy and Denies urinary urgency <JOSEF Mnotero Last Filed: 11/02/22 23:15> Musculoskeletal: Reports no additional musculoskeletal complaints, Denies numbness and Denies tingling <JOSEF Montero - Last Filed: 11/02/22 23:15> Denies dizziness, Denies loss of vision, Denies numbness and Denies tingling <JOSEF Montero - Last Filed: 11/02/22 23:15> Psychiatric: Reports no additional psychiatric complaints <JOSEF Montero - Last Filed: 11/02/22 23:15> Endocrine: Reports no additional endocrine complaints <JOSEF Montero - Last Filed: 11/02/22 23:15> Hematologic/Lymphatic: Reports no additional hematologic/lymphatic complaints <JOSEF Montero - Last Filed: 11/02/22 23:15> Allergic/Immunologic: Reports no additional allergic/immunologic complaints <JOSEF Montero - Last Filed: 11/02/22 23:15> PMFSH Past Medical History Attestation statement: The following information was validated with the patient. <JOSEF Montero - Last Filed: 11/02/22 23:15> Source: old records reviewed and nursing notes reviewed <JOSEF Montero - Last Filed: 11/02/22 23:15> Medical History: Medical History Allergic rhinitis Anxiety Atherosclerotic cardiovascular disease Bipolar 1 disorder, depressed Bloody diarrhea Breast pain, right Bronchial asthma Colitis COPD (chronic obstructive pulmonary disease) COPD exacerbation Cough CVA (cerebral vascular accident) Depression Diabetes type 2, uncontrolled Dyslipidemia Fibromyalgia HLD (hyperlipidemia) Hospital discharge follow-up HTN (hypertension) Hyperkalemia Hyperlipidemia LDL goal <100 Hyperparathyroidism Hypertension Hypothyroid IDDM (insulin dependent diabetes mellitus) Infiltrating ductal carcinoma of left breast, stage 2 Insomnia Irritable bowel Osteoporosis PAD (peripheral artery disease) Rash Reactive airways dysfunction syndrome Restrictive airway disease Seropositive rheumatoid arthritis T2DM (type 2 diabetes mellitus) Thyroid nodule Vitamin D deficiency <JOSEF Sood - Last Filed: 11/02/22 14:50> Surgical History: Surgical History H/O cardiac catheterization H/O: hysterectomy History of bronchoscopy History of bunionectomy of both great toes History of colonoscopy History of esophagogastroduodenoscopy (EGD) History of lumpectomy of left breast History of pubovaginal sling History of tubal ligation Hx of endoscopy <JOSEF Sood - Last Filed: 11/02/22 14:50> Family History Family History: Family History Mother Diabetes HTN (hypertension) Uterus cancer Malignant tumor of head Breast cancer Father Diabetes HTN (hypertension) CVD (cardiovascular disease) Heart problem Maternal Aunt Breast cancer Brother Myocardial infarction S/P CABG x 4 Family/Other FH: mental illness Family/Other Lung cancer Other Mental health disorder <JOSEF Sood - Last Filed: 11/02/22 14:50> Social History Social History: Social History Household Members: Family Household Members Other:: sister Housing: Apartment Are you a primary special needs child caregiver to a significant other at home: No Do you presently have visiting nurse or other home services: Yes (sister=nursing project coordinator) Alcohol intake: never Patient Tobacco Use Status: Current everyday Tobacco user Tobacco use type: Cigarette Cigarettes Per Day: 2 Years Smoked: 50 +/- e-Cigarette/Vaping Use: Former Use Second Hand Smoke Exposure: No Advance Directives: Yes Advance Directives on File: Yes Advance Directives Date on File: 12/22/21 service: No Current occupational status: disabled Current occupation: rt handed Cognitive needs: No Hearing needs: No Vision needs: No <JOSEF Sood - Last Filed: 11/02/22 14:50> Physical Exam ED Vital Signs: Vital Signs - 24 hr 11/02/22 14:47 11/02/22 17:29 11/02/22 19:08 Temperature 98.1 F 98.4 F 98.8 F Pulse Rate 141 H 120 H 123 H Respiratory Rate 18 16 18 Blood Pressure 150/87 H 137/84 116/76 Pulse Oximetry 97 97 93 Oxygen Delivery Method Room Air Room Air Room Air BMI result Body Mass Index 25.0 <JOSEF Sood - Last Filed: 11/02/22 14:50> Vital Signs - 24 hr 11/02/22 14:47 11/02/22 17:29 11/02/22 19:08 Temperature 98.1 F 98.4 F 98.8 F Pulse Rate 141 H 120 H 123 H Respiratory Rate 18 16 18 Blood Pressure 150/87 H 137/84 116/76 Pulse Oximetry 97 97 93 Oxygen Delivery Method Room Air Room Air Room Air BMI result Body Mass Index 25.0 <JOSEF Montero - Last Filed: 11/02/22 23:15> Const General: cooperative, no acute distress, alert and awake <JOSEF Montero - Last Filed: 11/02/22 23:15> Nutritional Appearance: well nourished <JOSEF Montero - Last Filed: 11/02/22 23:15> Orientation/consciousness: patient oriented x3 <JOSEF Montero - Last Filed: 11/02/22 23:15> Limitations: no limitations <JOSEF Montero - Last Filed: 11/02/22 23:15> HENMT Head: Yes normal to inspection and Yes atraumatic <JOSEF Montero - Last Filed: 11/02/22 23:15> Ears: hearing grossly normal bilaterally and external ears normal <JOSEF Montero - Last Filed: 11/02/22 23:15> General nose exam: Normal external nose present, no nasal discharge noted and no epistaxis <JOSEF Montero - Last Filed: 11/02/22 23:15> Face and sinus: Yes normal facial exam, No abrasion and No laceration <JOSEF Montero - Last Filed: 11/02/22 23:15> Mouth: Normal oral and palatal mucosa present, no drooling and no muffled voice <JOSEF Montero - Last Filed: 11/02/22 23:15> Eyes General: appearance normal, both eyes and all related structures <JOSEF Montero - Last Filed: 11/02/22 23:15> Periorbital: periorbital findings normal <JOSEF Montero - Last Filed: 11/02/22 23:15> Eyelids: Yes eyelids normal <JOSEF Montero - Last Filed: 11/02/22 23:15> Conjunctivae: conjunctivae normal <JOSEF Montero - Last Filed: 11/02/22 23:15> Pupils: Equal, round and reactive pupils present <Elo Burks PA - Last Filed: 11/02/22 23:15> EOM: EOMs intact bilaterally <Elo Burks PA - Last Filed: 11/02/22 23:15> Neck Neck: Yes normal visual inspection, Yes full ROM and Yes no lymphadenopathy <Elo Burks PA - Last Filed: 11/02/22 23:15> Chest Chest palpation & inspection: normal inspection of the chest <Elo Burks PA - Last Filed: 11/02/22 23:15> Resp Effort & Inspection: normal respiratory effort and able to speak in complete sentences <Elo Burks PA - Last Filed: 11/02/22 23:15> Auscultation: clear to auscultation bilaterally <Elo Burks PA - Last Filed: 11/02/22 23:15> Cardio Rate: tachycardic <Elo Burks PA - Last Filed: 11/02/22 23:15> Rhythm: regular rhythm <Elo Burks PA - Last Filed: 11/02/22 23:15> GI Inspection: Yes normal to inspection <Elo Burks PA - Last Filed: 11/02/22 23:15> Palpation (GI): Soft to palpation, not firm, nontender, no guarding and not rigid <Elo Burks PA - Last Filed: 11/02/22 23:15> Neuro General: patient oriented x3 and moves all extremities <Elo Burks PA - Last Filed: 11/02/22 23:15> Cranial nerves: Yes Equal, round and reactive pupils present <Elo Burks PA - Last Filed: 11/02/22 23:15> Cognition (Neuro): normal cognition <Elo Burks PA - Last Filed: 11/02/22 23:15> Motor exam (neuro): 5/5 motor strength present throughout <Elo Burks PA - Last Filed: 11/02/22 23:15> Sensory Exam: Normal double simultaneous stimulation for sensation <Elo Burks PA - Last Filed: 11/02/22 23:15> Coordination: [id number]-dc-jgzl test normal <Elo Burks PA - Last Filed: 11/02/22 23:15> Extrem General: Yes normal to inspection, Yes full ROM and Yes capillary refill normal <JOSEF Montero - Last Filed: 11/02/22 23:15> Psych Appearance: grossly normal <JOSEF Montero Last Filed: 11/02/22 23:15> Mental Status: mental status grossly normal <JOSEF Montero - Last Filed: 11/02/22 23:15> Affect: normal affect <JOSEF Montero - Last Filed: 11/02/22 23:15> Attitude: cooperative <JOSEF Montero - Last Filed: 11/02/22 23:15> Thought process: Normal thought process present <JOSEF Montero Last Filed: 11/02/22 23:15> Thought content: Normal thought content present <JOSEF Montero Last Filed: 11/02/22 23:15> Insight: Good insight present (Psych) <JOSEF Montero Last Filed: 11/02/22 23:15> Course Course Course Narrative: RME-14:50PM - 62yoF presenting to the ED c c/o N/V/D and upper abd pain since this morning. Her sister has similar symptoms. She reports she ate her sister's food she made some chicken in the oven. She reports a cough with intermittent sputum production. She denies any fevers, chills, nasal congestion/rhinorrhea, sore throat, chest pain/shortness of breath, black or bloody stools, rashes, recent travel or any other symptoms complaints or concerns at this time. On exam patient noted to be tachycardic at 143 therefore at this time patient will need to have an EKG, labs, chest x-ray, COVID/RSV/flu swab. Provide 4 mg of Zofran. Patient is going to the ED for further evaluation and treatment. <JOSEF Sood - Last Filed: 11/02/22 14:50> Medical Decision Making Medical Decision Making MDM Narrative: Patient is a 62 year old assigned female at with a history of DM, colitis, and HTN presenting to the emergency department today with abdominal pain, nausea, vomiting, and diarrhea. Patient's physical exam showed tachycardia but was otherwise unremarkable. Patient states that her heart rate is usually increased when she uses her inhaler and she did use it earlier today. Patient's blood work was unremarkable. Patient's urine showed no acute process. Patient's EKG was unremarkable. Patient's abdominal CT and chest XR showed no acute process. I explained my physical exam findings as well as all test results to the patient. I answered all questions asked by the patient. Patient received IV Zofran and Morphine which she stated helped her pain and nausea significantly. I stressed the importance of the patient taking her medication as prescribed. I stressed the importance of the patient following up with her primary care provider. I stressed the importance of the patient returning to the emergency department immediately if her symptoms were to worsen or if she were to develop any dizziness, shortness of breath, difficulty breathing, chest pain, blurry vision, loss of vision, nausea, vomiting, abdominal pain, fever, chills, back pain, or any other complaints. Patient verbalized agreement and understanding with this treatment plan and discharge. <JOSEF Montero - Last Filed: 11/02/22 23:15> Differential Diagnosis Differential Diagnoses: The differential diagnosis associated with the presentation includes <JOSEF Montero - Last Filed: 11/02/22 23:15> nausea, vomiting, enteritis, food poisoning <JOSEF Montero - Last Filed: 11/02/22 23:15> Lab Data MDM Lab Attestation statement: I reviewed the patient's lab results. <JOSEF Montero - Last Filed: 11/02/22 23:15> Result Diagrams: : 11/02/22 16:02 11/02/22 16:02 <JOSEF Sood - Last Filed: 11/02/22 14:50> Labs: Lab Results 11/02/22 11/02/22 11/02/22 Range/Units 16:02 16:02 16:02 WBC 10.5 (4.8-10.8) X10*3/uL RBC 5.66 H D (4.20-5.50) X10*6/uL Hgb 16.1 H D (12.0-16.0) g/dl Hct 49.5 H D (37.0-47.0) % MCV 87.5 (80.0-98.0) fL MCH 28.4 (27.0-33.0) pg MCHC 32.5 (31.0-35.0) g/dl RDW 13.6 (11.0-16.0) % Plt Count 324 (160-400) X10*3/uL MPV 10.7 (9.4-12.3) fL Immature Gran % (Auto) 0.6 H (0.0-0.4) % Neut % (Auto) 81.2 H (45-73) % Lymph % (Auto) 16.8 L (20-40) % Barnes % (Auto) 0.9 L (2-11) % Eos % (Auto) 0.2 (0-4) % Baso % (Auto) 0.3 (0-2) % Lymph # (Auto) 1.8 (1.2-4.9) X10*3/uL Barnes # (Auto) 0.1 (0.1-1.2) X10*3/uL Eos # (Auto) 0.0 (0.0-0.4) X10*3/uL Baso # (Auto) 0.0 (0.0-0.2) X10*3/uL Abs Immat Gran (auto) 0.06 H (0.00-0.03) X10*3/uL Absolute Neuts (auto) 8.5 H (2.0-8.3) x10*3/uL Absolute Nucleated RBC 0.000 (0.0-0.012) X10*3/uL Nucleated RBC % (auto) 0.0 (0.0-0.2) /100WBC PT 12.3 (10.0-13.1) SEC INR 1.1 (0.9-1.1) Sodium 140 (135-145) mmol/L Potassium 4.7 (3.3-5.1) mmol/L Chloride 101 (96-108) mmol/L Carbon Dioxide 26 (22-29) mmol/L Anion Gap 18 (12-20) BUN 18 H (9-16) mg/dL Creatinine 1.01 (0.5-1.4) mg/dL Estim Creat Clear Calc 43.3 Estimated GFR 56 Random Glucose 204 H (60-115) mg/dL Calcium 9.9 (8.4-10.2) mg/dL Magnesium 1.7 (1.6-2.6) mg/dL Total Bilirubin 0.7 (0.0-1.0) mg/dL AST 14 (5-31) U/L ALT 18 (0-31) U/L Alkaline Phosphatase 89 (39-117) U/L Total Protein 7.5 (6.5-8.0) g/dL Albumin 4.4 (3.5-5.0) g/dL Urine Color Urine Appearance Urine pH (5.0-9.0) Ur Specific [place] (1.005-1.025) Urine Protein (Neg-Trace) mg/dL Urine Glucose (UA) (Negative) mg/dL Urine Ketones (Negative) mg/dL Urine Blood (Negative) Urine Nitrite (Negative) Ur Leukocyte Esterase (Negative) Urine RBC (0-2) /HPF Urine WBC (0-5) /HPF Ur Squamous Epith Cells (0-2) /HPF Urine Bacteria (None Seen) Hyaline Casts (0-2) /LPF Influenza Type A (PCR) (Negative) Influenza Type B (PCR) (Negative) RSV RNA Qual (PCR) (Negative) SARS-CoV-2 RNA (RT-PCR) (Negative) 11/02/22 11/02/22 Range/Units 16:02 16:08 WBC (4.8-10.8) X10*3/uL RBC (4.20-5.50) X10*6/uL Hgb (12.0-16.0) g/dl Hct (37.0-47.0) % MCV (80.0-98.0) fL MCH (27.0-33.0) pg MCHC (31.0-35.0) g/dl RDW (11.0-16.0) % Plt Count (160-400) X10*3/uL MPV (9.4-12.3) fL Immature Gran % (Auto) (0.0-0.4) % Neut % (Auto) (45-73) % Lymph % (Auto) (20-40) % Barnes % (Auto) (2-11) % Eos % (Auto) (0-4) % Baso % (Auto) (0-2) % Lymph # (Auto) (1.2-4.9) X10*3/uL Barnes # (Auto) (0.1-1.2) X10*3/uL Eos # (Auto) (0.0-0.4) X10*3/uL Baso # (Auto) (0.0-0.2) X10*3/uL Abs Immat Gran (auto) (0.00-0.03) X10*3/uL Absolute Neuts (auto) (2.0-8.3) x10*3/uL Absolute Nucleated RBC (0.0-0.012) X10*3/uL Nucleated RBC % (auto) (0.0-0.2) /100WBC PT (10.0-13.1) SEC INR (0.9-1.1) Sodium (135-145) mmol/L Potassium (3.3-5.1) mmol/L Chloride (96-108) mmol/L Carbon Dioxide (22-29) mmol/L Anion Gap (12-20) BUN (9-16) mg/dL Creatinine (0.5-1.4) mg/dL Estim Creat Clear Calc Estimated GFR Random Glucose (60-115) mg/dL Calcium (8.4-10.2) mg/dL Magnesium (1.6-2.6) mg/dL Total Bilirubin (0.0-1.0) mg/dL AST (5-31) U/L ALT (0-31) U/L Alkaline Phosphatase (39-117) U/L Total Protein (6.5-8.0) g/dL Albumin (3.5-5.0) g/dL Urine Color Dark Yellow Urine Appearance Clear Urine pH 6.0 (5.0-9.0) Ur Specific [place] >= 1.030 H (1.005-1.025) Urine Protein 30 (1+) H (Neg-Trace) mg/dL Urine Glucose (UA) 500 H (Negative) mg/dL Urine Ketones Trace (Negative) mg/dL Urine Blood Negative (Negative) Urine Nitrite Negative (Negative) Ur Leukocyte Esterase Negative (Negative) Urine RBC 3-5 H (0-2) /HPF Urine WBC 0-5 (0-5) /HPF Ur Squamous Epith Cells 0-2 (0-2) /HPF Urine Bacteria None Seen (None Seen) Hyaline Casts 0-2 (0-2) /LPF Influenza Type A (PCR) NEGATIVE (Negative) Influenza Type B (PCR) NEGATIVE (Negative) RSV RNA Qual (PCR) NEGATIVE (Negative) SARS-CoV-2 RNA (RT-PCR) NEGATIVE (Negative) <JOSEF Sood - Last Filed: 11/02/22 14:50> Lab Results 11/02/22 11/02/22 11/02/22 Range/Units 16:02 16:02 16:02 WBC 10.5 (4.8-10.8) X10*3/uL RBC 5.66 H D (4.20-5.50) X10*6/uL Hgb 16.1 H D (12.0-16.0) g/dl Hct 49.5 H D (37.0-47.0) % MCV 87.5 (80.0-98.0) fL MCH 28.4 (27.0-33.0) pg MCHC 32.5 (31.0-35.0) g/dl RDW 13.6 (11.0-16.0) % Plt Count 324 (160-400) X10*3/uL MPV 10.7 (9.4-12.3) fL Immature Gran % (Auto) 0.6 H (0.0-0.4) % Neut % (Auto) 81.2 H (45-73) % Lymph % (Auto) 16.8 L (20-40) % Barnes % (Auto) 0.9 L (2-11) % Eos % (Auto) 0.2 (0-4) % Baso % (Auto) 0.3 (0-2) % Lymph # (Auto) 1.8 (1.2-4.9) X10*3/uL Barnes # (Auto) 0.1 (0.1-1.2) X10*3/uL Eos # (Auto) 0.0 (0.0-0.4) X10*3/uL Baso # (Auto) 0.0 (0.0-0.2) X10*3/uL Abs Immat Gran (auto) 0.06 H (0.00-0.03) X10*3/uL Absolute Neuts (auto) 8.5 H (2.0-8.3) x10*3/uL Absolute Nucleated RBC 0.000 (0.0-0.012) X10*3/uL Nucleated RBC % (auto) 0.0 (0.0-0.2) /100WBC PT 12.3 (10.0-13.1) SEC INR 1.1 (0.9-1.1) Sodium 140 (135-145) mmol/L Potassium 4.7 (3.3-5.1) mmol/L Chloride 101 (96-108) mmol/L Carbon Dioxide 26 (22-29) mmol/L Anion Gap 18 (12-20) BUN 18 H (9-16) mg/dL Creatinine 1.01 (0.5-1.4) mg/dL Estim Creat Clear Calc 43.3 Estimated GFR 56 Random Glucose 204 H (60-115) mg/dL Calcium 9.9 (8.4-10.2) mg/dL Magnesium 1.7 (1.6-2.6) mg/dL Total Bilirubin 0.7 (0.0-1.0) mg/dL AST 14 (5-31) U/L ALT 18 (0-31) U/L Alkaline Phosphatase 89 (39-117) U/L Total Protein 7.5 (6.5-8.0) g/dL Albumin 4.4 (3.5-5.0) g/dL Urine Color Urine Appearance Urine pH (5.0-9.0) Ur Specific [place] (1.005-1.025) Urine Protein (Neg-Trace) mg/dL Urine Glucose (UA) (Negative) mg/dL Urine Ketones (Negative) mg/dL Urine Blood (Negative) Urine Nitrite (Negative) Ur Leukocyte Esterase (Negative) Urine RBC (0-2) /HPF Urine WBC (0-5) /HPF Ur Squamous Epith Cells (0-2) /HPF Urine Bacteria (None Seen) Hyaline Casts (0-2) /LPF Influenza Type A (PCR) (Negative) Influenza Type B (PCR) (Negative) RSV RNA Qual (PCR) (Negative) SARS-CoV-2 RNA (RT-PCR) (Negative) 11/02/22 11/02/22 Range/Units 16:02 16:08 WBC (4.8-10.8) X10*3/uL RBC (4.20-5.50) X10*6/uL Hgb (12.0-16.0) g/dl Hct (37.0-47.0) % MCV (80.0-98.0) fL MCH (27.0-33.0) pg MCHC (31.0-35.0) g/dl RDW (11.0-16.0) % Plt Count (160-400) X10*3/uL MPV (9.4-12.3) fL Immature Gran % (Auto) (0.0-0.4) % Neut % (Auto) (45-73) % Lymph % (Auto) (20-40) % Barnes % (Auto) (2-11) % Eos % (Auto) (0-4) % Baso % (Auto) (0-2) % Lymph # (Auto) (1.2-4.9) X10*3/uL [place] # (Auto) (0.1-1.2) X10*3/uL Eos # (Auto) (0.0-0.4) X10*3/uL Baso # (Auto) (0.0-0.2) X10*3/uL Abs Immat Gran (auto) (0.00-0.03) X10*3/uL Absolute Neuts (auto) (2.0-8.3) x10*3/uL Absolute Nucleated RBC (0.0-0.012) X10*3/uL Nucleated RBC % (auto) (0.0-0.2) /100WBC PT (10.0-13.1) SEC INR (0.9-1.1) Sodium (135-145) mmol/L Potassium (3.3-5.1) mmol/L Chloride (96-108) mmol/L Carbon Dioxide (22-29) mmol/L Anion Gap (12-20) BUN (9-16) mg/dL Creatinine (0.5-1.4) mg/dL Estim Creat Clear Calc Estimated GFR Random Glucose (60-115) mg/dL Calcium (8.4-10.2) mg/dL Magnesium (1.6-2.6) mg/dL Total Bilirubin (0.0-1.0) mg/dL AST (5-31) U/L ALT (0-31) U/L Alkaline Phosphatase (39-117) U/L Total Protein (6.5-8.0) g/dL Albumin (3.5-5.0) g/dL Urine Color Dark Yellow Urine Appearance Clear Urine pH 6.0 (5.0-9.0) Ur Specific [place] >= 1.030 H (1.005-1.025) Urine Protein 30 (1+) H (Neg-Trace) mg/dL Urine Glucose (UA) 500 H (Negative) mg/dL Urine Ketones Trace (Negative) mg/dL Urine Blood Negative (Negative) Urine Nitrite Negative (Negative) Ur Leukocyte Esterase Negative (Negative) Urine RBC 3-5 H (0-2) /HPF Urine WBC 0-5 (0-5) /HPF Ur Squamous Epith Cells 0-2 (0-2) /HPF Urine Bacteria None Seen (None Seen) Hyaline Casts 0-2 (0-2) /LPF Influenza Type A (PCR) NEGATIVE (Negative) Influenza Type B (PCR) NEGATIVE (Negative) RSV RNA Qual (PCR) NEGATIVE (Negative) SARS-CoV-2 RNA (RT-PCR) NEGATIVE (Negative) <JOSEF Montero - Last Filed: 11/02/22 23:15> Independent Interpretation I performed an independent interpretation of an: EKG <JOSEF Montero - Last Filed: 11/02/22 23:15> Interpretation: Vent. Rate: 133 BPM ? ? Atrial Rate: 133 BPM P-R Int: 114 ms? QRS Dur: 072 ms QT Int: 302 ms ? ? ? P-R-T Axes: 077 084 070 degrees QTc Int: 449 ms ? Sinus tachycardia Otherwise normal ECG When compared with ECG of 24-OCT-2022 18:49, No significant change was found ? Electronically Signed By:DELON MONTES Dictated By: Delon Montes MD Signed By: Electronically signed by Delon Montes MD 11/02/22 0738 <JOSEF Montero - Last Filed: 11/02/22 23:15> Radiology Impression Discussion of test interpretation with radiology: I have reviewed the radiologist's reading. <JOSEF Montero - Last Filed: 11/02/22 23:15> Radiologist Impression: EXAMINATION: CT ABDOMEN AND PELVIS WITH CONTRAST CLINICAL INFORMATION: 08/16/2022 CT scan of the chest abd pain COMPARISON: None.? TECHNIQUE: Multidetector volumetric imaging was performed from the superior aspect of the liver through the pubic symphysis following administration of 100 mL Omnipaque 300 intravenous contrast. Sagittal and coronal reformatted images were obtained on the technologist workstation.. This CT examination was performed using dose optimization techniques as appropriate, variously including the following: *Automated exposure control *Adjustment of mA and/or kV according to patient size (this includes techniques or standardized protocols for targeted exams where dose is matched to indication/reason for exam; i.e. extremities or head) *Use of iterative reconstruction technique DLP: 418 mGy-cm FINDINGS: LUNG BASES: The visualized lung bases are unremarkable.? LIVER, GALLBLADDER, AND BILIARY TREE: The liver is normal in size, shape, and attenuation. No focal hepatic lesion or biliary ductal dilatation is present. The gallbladder is unremarkable with no evidence of radiopaque gallstones, gallbladder wall thickening, or obvious pericholecystic inflammatory changes.? PANCREAS: Unremarkable.? SPLEEN: Unremarkable.? ADRENAL GLANDS: Unremarkable.? KIDNEYS AND URETERS: The kidneys are normal in size, shape, and attenuation. No hydronephrosis, hydroureter, or calculi seen. No perinephric stranding. ? BLADDER: Unremarkable.? GASTROINTESTINAL TRACT: Scattered colonic diverticulosis but no colonic wall thickening or pericolonic inflammatory change to suggest diverticulitis. Unremarkable appendix in the right lower quadrant. Visualized small bowel also unremarkable. Stomach is relatively distended? ABDOMINAL WALL: Tiny fat-containing umbilical hernia? LYMPHOVASCULAR STRUCTURES: Prominent vascular calcification within the aorta iliac system? PELVIC VISCERA: Presumably surgically absent OSSEOUS STRUCTURES: Unremarkable.? CT/CT abdomen pelvis w IV con IMPRESSION: Chronic appearing changes as described. I do not appreciate any acute intra-abdominal process. Dictated By: Jose Fitzpatrick MD Signed By: Electronically signed by Jose Fitzpatrick MD 11/02/22 8931 EXAMINATION: XR CHEST CLINICAL INFORMATION: Cough with nausea vomiting diarrhea and abdominal pain COMPARISON: Chest x-ray 10/24/2022 TECHNIQUE: 2 views of the chest were obtained. FINDINGS: The lungs are clear. No airspace consolidation, pleural effusion, or pneumothorax. The cardiomediastinal silhouette is within normal limits. No acute osseous injury. Chronic/healed fracture deformity of the posterior right sixth rib noted. XR/XR chest 2V IMPRESSION: No acute pulmonary process. Dictated By: Frederick Roegrs Signed By: Electronically signed by Frederick?Ken 11/02/22 1543 <JOSEF Montero - Last Filed: 11/02/22 23:15> Chronic Conditions Patient?s care impacted by: Diabetes and Hypertension <JOSEF Montero - Last Filed: 11/02/22 23:15> Medications Administered Discontinued Medications Generic Name Dose Route Start Last Admin Trade Name Freq PRN Reason Stop Dose Admin Sodium Chloride 1,000 mls @ 999 mls/hr 11/02/22 16:30 11/02/22 18:52 Ns IV 11/02/22 17:30 Infused .Q1H1M ELDER Infusion Promethazine HCl 12.5 mg/ 50.5 mls @ 202 mls/hr 11/02/22 16:26 11/02/22 18:52 Sodium Chloride IV 11/02/22 16:27 Infused ONCE ONE Infusion Iohexol 100 ml 11/02/22 18:05 11/02/22 18:06 Iohexol 350 Mg/Ml 100 Ml Infus..Btl IV 11/02/22 18:06 85 ml ONCE ONE Administration Morphine Sulfate 4 mg 11/02/22 16:26 11/02/22 17:02 Morphine Sulfate 4 Mg/Ml Cartridge IM 11/02/22 16:27 4 mg ONCE ONE Administration Protocol Ondansetron HCl 4 mg 11/02/22 14:49 11/02/22 14:51 Ondansetron Odt 4 Mg Tab.Rapdis TRANSLINGU 11/02/22 14:50 4 mg ONCE ONE Administration <JOSEF Sood - Last Filed: 11/02/22 14:50> Medications Administered Discontinued Medications Generic Name Dose Route Start Last Admin Trade Name Mayra PRN Reason Stop Dose Admin Sodium Chloride 1,000 mls @ 999 mls/hr 11/02/22 16:30 11/02/22 18:52 Ns IV 11/02/22 17:30 Infused .Q1H1M LEDER Infusion Promethazine HCl 12.5 mg/ 50.5 mls @ 202 mls/hr 11/02/22 16:26 11/02/22 18:52 Sodium Chloride IV 11/02/22 16:27 Infused ONCE ONE Infusion Iohexol 100 ml 11/02/22 18:05 11/02/22 18:06 Iohexol 350 Mg/Ml 100 Ml Infus..Btl IV 11/02/22 18:06 85 ml ONCE ONE Administration Morphine Sulfate 4 mg 11/02/22 16:26 11/02/22 17:02 Morphine Sulfate 4 Mg/Ml Cartridge IM 11/02/22 16:27 4 mg ONCE ONE Administration Protocol Ondansetron HCl 4 mg 11/02/22 14:49 11/02/22 14:51 Ondansetron Odt 4 Mg Tab.Rapdis TRANSLINGU 11/02/22 14:50 4 mg ONCE ONE Administration <JOSEF Montero - Last Filed: 11/02/22 23:15> Discharge Plan Discharge Clinical Impression: Nausea & vomiting <JOSEF Sood - Last Filed: 11/02/22 14:50> Patient Disposition: Home, Self-Care <JOSEF Sood - Last Filed: 11/02/22 14:50> Instructions: Acute Nausea and Vomiting (ED) <JOSEF Sood - Last Filed: 11/02/22 14:50> Additional Instructions: Follow up with your primary care provider. Return to the emergency department immediately if your symptoms worsen or if you develop any dizziness, shortness of breath, difficulty breathing, chest pain, blurry vision, loss of vision, nausea, vomiting, abdominal pain, fever, chills, back pain, or any other complaints. <JOSEF Sood Last Filed: 11/02/22 14:50> Prescriptions: No Action (DME) pen needle, diabetic [Comfort EZ Pen [place]] 31 gauge x 5/16 needle See Rx Instructions .ROUTE .MEDSUPPLY Qty: 200 11RF Rx Instructions: Use 1 pen needle 6 times a day (DME) lancets [FreeStyle Lancets] 28 gauge misc See Rx Instructions .Route Qty: 100 3RF Rx Instructions: Use 1 lancet once a day lamotrigine 25 mg tablet 25 mg PO BID 90 Days Qty: 180 1RF pregabalin 150 mg capsule 150 mg PO .COMPLEX Qty: 30 3RF Rx Instructions: 150 mg orally one cap daily in AM; lubiprostone [Amitiza] 8 mcg capsule 8 mcg PO BID 30 Days Qty: 60 3RF trazodone 100 mg tablet 100 mg PO BEDTIME 90 Days Qty: 90 0RF Trulicity 1.5 mg/0.5 mL pen injector 1.5 mg subcut WE 30 Days Qty: 2.5 11RF insulin aspart U-100 [Novolog Flexpen U-100 Insulin] 100 unit/mL (3 mL) insulin pen 2 - 10 unit subcut TIDAC 30 Days Qty: 15 11RF Protocol: Insulin Correction Scale Less than or equal to 110 ---- Give (units): 0 111 to 150 Give (units): 0 151 to 200 Give (units): 2 201 to 250 Give (units): 4 251 to 300 Give (units): 6 301 to 350 Give (units): 8 Greater than 350 Give (units): 10 Call MD if Blood Glucose > : 350 Rx Instructions: Via sliding scale dicyclomine 10 mg capsule 10 mg PO TID PRN (Reason: for abdominal pain) 30 Days Qty: 30 1RF famotidine 20 mg tablet 20 mg PO BEDTIME 90 Days Qty: 90 1RF losartan 25 mg tablet 25 mg PO DAILY Qty: 90 0RF pregabalin [Lyrica] 200 mg capsule 200 mg PO BEDTIME Qty: 30 3RF efoqwbucep-tcevdypjywksn-exyg 50-325-40 mg tablet 1 tab PO Q6H PRN (Reason: pain) 30 Days Qty: 30 0RF ipratropium-albuterol 0.5 mg-3 mg(2.5 mg base)/3 mL solution for nebulization 3 ml inhalation Q6H PRN (Reason: wheezing) Qty: 180 2RF azithromycin 250 mg tablet 250 mg PO 3XW Qty: 12 2RF pantoprazole 40 mg tablet,delayed release (DR/EC) 40 mg PO BID 90 Days Qty: 180 0RF albuterol sulfate 90 mcg/actuation HFA aerosol inhaler 2 puff PO Q4-6H Qty: 8.5 3RF letrozole 2.5 mg Tablet 2.5 mg PO DAILY Qty: 90 4RF tizanidine 2 mg tablet 1 tab PO BEDTIME PRN (Reason: muscle spasm) ondansetron 4 mg tablet,disintegrating 4 mg PO Q8H PRN (Reason: nausea and vomiting) Qty: 14 0RF albuterol sulfate 90 mcg/actuation aerosol powdr breath activated 2 inh inhalation Q4-6H PRN (Reason: shortness of breath or wheezing) Qty: 1 0RF prednisone 10 mg tablet 10 mg PO DAILY 5 Days Qty: 5 0RF morphine 15 mg tablet 15 mg PO BID PRN (Reason: pain) Qty: 8 0RF Rx Instructions: Partial Fill upon patient request. nitroglycerin 0.4 mg tablet, sublingual 0.4 mg sublingual Q5M PRN (Reason: Chest Pain) atorvastatin 80 mg tablet 80 mg PO DAILY 90 Days Qty: 90 1RF Rx Instructions: patient lost recent RX, please fill this as emergency RX this one time Brilinta 90 mg tablet 90 mg PO BID 90 Days Qty: 180 1RF Rx Instructions: Please fill Rx today, patient lost previous RX, fill as emergency this one time (DME) FreeStyle Lite Strips Strip MISCELLANEOUS DAILY Qty: 100 1RF Rx Instructions: Use 1 test strip three times a day Xiidra 5 % dropperette 1 drp ophthalmic (eye) BID sulfasalazine 500 mg tablet See Rx Instructions .ROUTE .COMPLEX Qty: 60 0RF Rx Instructions: Take 1 tab po daily for 1 week, then increase to 1 tab po BID <JOSEF Sood - Last Filed: 11/02/22 14:50> Referrals: Adela Gipson MD [Primary Care Provider] - <JOSEF Sood - Last Filed: 11/02/22 14:50> Interventions: ED Discharge Assessment Last Done: 11/02/22 19:46 <JOSEF Sood - Last Filed: 11/02/22 14:50> Discharge Date/Time: 11/02/22 19:47 <JOSEF Sood - Last Filed: 11/02/22 14:50> Print Language: Bhutanese <JOSEF Sood - Last Filed: 11/02/22 14:50>
[2022-11-02 14:47] VITALS: BP 150/87; PULSE 141; RESP 18; TEMP 36.7; O2SAT 97; BMI 25.0
--- NOTE | 2022-11-02 14:48 | ECG_ITS ---
Test Reason : Palpitations Blood Pressure : / mmHG Vent. Rate : 133 BPM Atrial Rate : 133 BPM P-R Int : 114 ms QRS Dur : 072 ms QT Int : 302 ms P-R-T Axes : 077 084 070 degrees QTc Int : 449 ms Sinus tachycardia Otherwise normal ECG When compared with ECG of 24-OCT-2022 18:49, No significant change was found Referred By: Porsha Araujo Electronically Signed By:MICHELL MONTES
[2022-11-02] MEDS: Ondansetron ODT 4 MG TAB.RAPDIS TRANSLINGU (14:51)
[2022-11-02 16:05] LABS: MANUAL DIFF FLAG NO
[2022-11-02 16:13] LABS: Basophils Percent Auto 0.3 % (0-2); Eosinophils Percent Auto 0.2 % (0-4); Hematocrit 49.5 % (37.0-47.0); Hemoglobin 16.1 g/dl (12.0-16.0); Imm Gran Abs Auto 0.06 X10*3/uL (0.00-0.03); Imm Gran Pct Auto 0.6 % (0.0-0.4); Lymphocytes Absolute Auto 1.8 X10*3/uL (1.2-4.9); Lymphocytes Percent Auto 16.8 % (20-40); Mean Corpuscular HGB Conc 32.5 g/dl (31.0-35.0); Mean Corpuscular Hemoglobin 28.4 pg (27.0-33.0); Mean Corpuscular Volume 87.5 fL (80.0-98.0); Mean Platelet Volume 10.7 fL (9.4-12.3); Monocytes Absolute Auto 0.1 X10*3/uL (0.1-1.2); Monocytes Percent Auto 0.9 % (2-11); Neutrophils Absolute Auto 8.5 x10*3/uL (2.0-8.3); Neutrophils Percent Auto 81.2 % (45-73); Platelet Count 324 X10*3/uL (160-400); Red Blood Count 5.66 X10*6/uL (4.20-5.50); Red Cell Distribution Width 13.6 % (11.0-16.0); White Blood Count 10.5 X10*3/uL (4.8-10.8)
[2022-11-02 16:20] LABS: Appearance Urine Clear; Color Urine Dark Yellow; Glucose Urine UA 500 mg/dL (Negative); Leukocyte Esterase Urine Negative (Negative); Nitrite Urine Negative (Negative); Specific Gravity - Urine >= 1.030 (1.005-1.025); UMIC TRIGGER UACC YES; Urine Blood Negative (Negative); Urine Ketones Trace mg/dL (Negative); Urine Protein 30 (1+) mg/dL (Neg-Trace)
[2022-11-02 16:24] LABS: Bacteria Urine None Seen (None Seen); Hyaline Casts Urine 0-2 /LPF (0-2); Squamous Epithelial Cell Urine 0-2 /HPF (0-2); WBC Urine 0-5 /HPF (0-5)
[2022-11-02 16:25] LABS: INTERNATIONAL NORM RATIO 1.1 (0.9-1.1); Prothrombin Time 12.3 SEC (10.0-13.1)
[2022-11-02 16:42] LABS: Alanine Aminotransferase 18 U/L (0-31); Albumin Level 4.4 g/dL (3.5-5.0); Alkaline Phosphatase 89 U/L (39-117); Anion Gap 18 (12-20); Aspartate Amino Transferase 14 U/L (5-31); Bilirubin Total 0.7 mg/dL (0.0-1.0); Blood Urea Nitrogen 18 mg/dL (9-16); Calcium 9.9 mg/dL (8.4-10.2); Carbon Dioxide 26 mmol/L (22-29); Chloride 101 mmol/L (96-108); Creatinine Clr Calc Pharmacy 43.3; Estimated Glomerular Filt Rate 56; Glucose Random 204 mg/dL (60-115); Magnesium 1.7 mg/dL (1.6-2.6); Potassium 4.7 mmol/L (3.3-5.1); Sodium 140 mmol/L (135-145); Total Protein 7.5 g/dL (6.5-8.0)
--- NOTE | 2022-11-02 16:45 | PC.NURSE ---
Pt alert and oriented, respirations even and unlabored. States 10 abd pain since this morning. Ambulates to the bathroom with steady gait. IV established. Medicated per the JAN.
[2022-11-02] MEDS: Morphine Sulfate 4 MG/ML CARTRIDGE IM (17:02)
[2022-11-02 17:04] LABS: Influenza A PCR NEGATIVE (Negative); Influenza B PCR NEGATIVE (Negative); Resp Syncy Virus RNA Qual PCR NEGATIVE (Negative); SARS COV2 PCR INHOUSE NEGATIVE (Negative)
[2022-11-02] MEDS: 0.9 % Sodium Chloride 1,000 ML 999 ML IV (17:05)
[2022-11-02 17:29] VITALS: BP 137/84; PULSE 120; RESP 16; TEMP 36.9; O2SAT 97
[2022-11-02] MEDS: iohexoL 350 MG/ML 100 ML INFUS..BTL IV (18:06)
[2022-11-02 19:08] VITALS: BP 116/76; PULSE 123; RESP 18; TEMP 37.1; O2SAT 93
== END 2022-11-02 19:47 | disposition home or self-care (01) ==
PROVIDERS: Physician Assistant Medical; Emergency Provider Student in an Organized Health Care Education/Training Program; PCP Internal Medicine
DX: R11.2 Nausea with vomiting, unspecified (principal); Z20.822 Contact with and (suspected) exposure to COVID-19; E11.9 Type 2 diabetes mellitus without complications; I10 Essential (primary) hypertension; E78.5 Hyperlipidemia, unspecified; F17.210 Nicotine dependence, cigarettes, uncomplicated; Z79.4 Long term (current) use of insulin; Z86.73 Personal history of transient ischemic attack (TIA), and cerebral infarction without residual deficits
CPT/HCPCS: 0241U; 71046; 74177; 80053; 81001; 83735; 85025; 85610; 93005; 96361; 96372; 96374; 99284; J2270; J2550; Q9967

== ENCOUNTER 2022-11-08 15:40 | Inpatient (IN) | payer MEDICARE, MEDICAID, SELFPAY ==
[2022-09-19 10:26] VITALS: BP 100/64; BP 102/48; BP 110/70; BMI 25.5
[2022-11-08] VITALS (8 sets, daily range): BP systolic 122–166; BP diastolic 70–87; PULSE 87–126; RESP 16–38; TEMP 36.7; O2SAT 93–97; BMI 54.3; BMI 24.6
--- NOTE | ~2022-11-08 | CT_ITS ---
EXAMINATION: CT ABDOMEN AND PELVIS WITH CONTRAST CLINICAL INFORMATION: Abdominal pain COMPARISON: CT abdomen and pelvis 09/02/2022 TECHNIQUE: Multidetector volumetric images were obtained from the superior aspect of the liver through the pubic symphysis following administration 85 mL of Omnipaque 350 intravenous contrast. Sagittal and coronal reformatted images were obtained on the technologist's workstation. Oral contrast: No This CT examination was performed using dose optimization techniques as appropriate, variously including the following: *Automated exposure control *Adjustment of mA and/or kV according to patient size (this includes techniques or standardized protocols for targeted exams where dose is matched to indication/reason for exam; i.e. extremities or head) *Use of iterative reconstruction technique DLP: 242 mGy-cm FINDINGS: LUNG BASES: Mild subsegmental atelectasis versus scarring in the right lung base and lingula. LIVER, GALLBLADDER, AND BILIARY TREE: The liver is normal in size, shape, and attenuation. No focal hepatic lesion or biliary ductal dilatation is present. The gallbladder is unremarkable with no evidence of radiopaque gallstones, gallbladder wall thickening, or obvious pericholecystic inflammatory changes. PANCREAS: Unremarkable. SPLEEN: Unremarkable. ADRENAL GLANDS: Unremarkable. KIDNEYS AND URETERS: The kidneys are normal in size, shape, and attenuation. No hydronephrosis, hydroureter, or calculi seen. No perinephric stranding. BLADDER: Unremarkable. GASTROINTESTINAL TRACT: Moderate to large colonic stool burden. No dilated bowel loops. No bowel wall thickening. Normal appendix. Some fecalization of distal ileal contents. No free air or ascites. ABDOMINAL WALL: Tiny fat-containing umbilical hernia. LYMPH NODES: No lymphadenopathy. VASCULAR: Normal caliber abdominal aorta. Scattered mild to moderate mixed calcified noncalcified atherosclerotic plaque. PELVIC VISCERA: Status post hysterectomy. OSSEOUS STRUCTURES: No acute fracture or suspicious osseous lesion. CT/CT abdomen pelvis w IV con IMPRESSION: 1. No acute intra-abdominal process identified. 2. Moderate to large colonic stool burden. Correlate clinically with signs or symptoms of constipation.
--- NOTE | ~2022-11-08 | XR_ITS ---
EXAMINATION: XR CHEST CLINICAL INFORMATION: Shortness of breath COMPARISON: Previous chest x-ray from yesterday TECHNIQUE: Frontal view of the chest was obtained. FINDINGS: No significant abnormality is noted involving the heart, lungs, mediastinum, bony thorax or soft tissues. There may be subsegmental atelectasis at the left lung base. XR/XR chest 1V IMPRESSION: Subsegmental atelectasis at the left lung base. Otherwise unremarkable exam.
--- NOTE | 2022-11-08 15:53 | ECG_ITS ---
Test Reason : SOB Blood Pressure : / mmHG Vent. Rate : 101 BPM Atrial Rate : 101 BPM P-R Int : 120 ms QRS Dur : 082 ms QT Int : 342 ms P-R-T Axes : 078 081 066 degrees QTc Int : 443 ms Sinus tachycardia Otherwise normal ECG When compared with ECG of 02-NOV-2022 15:18, No significant change was found Referred By: Porsha Araujo Electronically Signed By:Joseph Salmon
[2022-11-08] MEDS: Magnesium Sulfate/H2O 2 GM/50 ML PIGGYBACK IV (15:59)
[2022-11-08] MEDS: 0.9 % Sodium Chloride 1,000 ML 999 ML IVCONT (15:59)
[2022-11-08] MEDS: methylPREDNISolone Sod Succ 125 MG/2 ML VIAL IVPUSH (15:59)
[2022-11-08] MEDS: guaiFEN/Codeine SF 200/20/10ML 10 ML LIQUID PO (15:59)
[2022-11-08] MEDS: Acetaminophen 325 MG TABLET 975 MG PO (16:09)
[2022-11-08] MEDS: Albuterol Sulfate 7.5 MG, Albuterol/Iprat 2.5/0.5MG 3 ML 3 ML INHALE (16:15)
[2022-11-08 16:22] LABS: MANUAL DIFF FLAG NO
[2022-11-08 16:26] LABS: Basophils Percent Auto 0.2 % (0-2); Eosinophils Absolute Auto 0.1 X10*3/uL (0.0-0.4); Eosinophils Percent Auto 0.7 % (0-4); Hematocrit 39.2 % (37.0-47.0); Imm Gran Abs Auto 0.04 X10*3/uL (0.00-0.03); Imm Gran Pct Auto 0.4 % (0.0-0.4); Lymphocytes Absolute Auto 4.5 X10*3/uL (1.2-4.9); Mean Corpuscular HGB Conc 33.2 g/dl (31.0-35.0); Mean Corpuscular Hemoglobin 28.8 pg (27.0-33.0); Mean Corpuscular Volume 86.7 fL (80.0-98.0); Mean Platelet Volume 9.8 fL (9.4-12.3); Monocytes Absolute Auto 0.7 X10*3/uL (0.1-1.2); Monocytes Percent Auto 7.6 % (2-11); Neutrophils Absolute Auto 4.4 x10*3/uL (2.0-8.3); Neutrophils Percent Auto 45.1 % (45-73); Platelet Count 304 X10*3/uL (160-400); Red Blood Count 4.52 X10*6/uL (4.20-5.50); Red Cell Distribution Width 13.6 % (11.0-16.0); White Blood Count 9.8 X10*3/uL (4.8-10.8)
--- NOTE | 2022-11-08 16:27 | PC.NURSE ---
pt BIBA with over a week of URI symptoms. nurse entered room to see pt in tripod position unable to catch breath (Spo2 96%, resp 31, HR 126). 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
[2022-11-08 16:30] LABS: INTERNATIONAL NORM RATIO 1.1 (0.9-1.1); Prothrombin Time 12.9 SEC (10.0-13.1)
[2022-11-08 16:39] LABS: Alanine Aminotransferase 17 U/L (0-31); Albumin Level 3.8 g/dL (3.5-5.0); Alkaline Phosphatase 68 U/L (39-117); Anion Gap 15 (12-20); Aspartate Amino Transferase 19 U/L (5-31); Bilirubin Total 0.3 mg/dL (0.0-1.0); Blood Urea Nitrogen 8 mg/dL (9-16); Carbon Dioxide 24 mmol/L (22-29); Chloride 106 mmol/L (96-108); Creatinine Clr Calc Pharmacy 82.6; Estimated Glomerular Filt Rate > 60; Glucose Random 129 mg/dL (60-115); Magnesium 2.2 mg/dL (1.6-2.6); Potassium 4.4 mmol/L (3.3-5.1); Sodium 141 mmol/L (135-145); Total Protein 6.4 g/dL (6.5-8.0)
[2022-11-08 16:46] LABS: Troponin-I High Sensitivity 5.5 ng/L (<3.5-17.0)
[2022-11-08 16:55] LABS: Lactic Acid 4.5 mmol/L (0.5-2.0)
[2022-11-08] MEDS: cefTRIAXone sodium 2 GM in 0.9 % Sodium Chloride 50 ML IV (17:05)
[2022-11-08 17:10] LABS: Influenza A PCR POSITIVE (Negative); Influenza B PCR NEGATIVE (Negative); Resp Syncy Virus RNA Qual PCR NEGATIVE (Negative); SARS COV2 PCR INHOUSE NEGATIVE (Negative)
--- NOTE | 2022-11-08 17:15 | ED_ITS ---
HPI - URI/Sore Throat General Chief Complaint: Upper Respiratory Symptoms Stated Complaint: DIFF BREATHING Time Seen by Provider: 11/08/22 15:55 Source: patient and EMS Mode of arrival: EMS Limitations: no limitations History of Present Illness HPI Narrative: 62-year-old female with a past medical history of hypertension, hyperlipidemia, CAD status post stents in December 2021, colitis, diabetes and asthma who is a current daily smoker, history of breast cancer, P 80, reactive airway disease, rheumatoid arthritis, osteoporosis, fibromyalgia, anxiety and depression who is presenting to the ED via EMS with complaints of fevers, chills, malaise, body aches, nasal congestion/ rhinorrhea, cough with shortness of breath nonproductive that started on Saturday worse today. She received 2 DuoNebs prior to arrival by EMS with minimal to no symptomatic relief. She reports going into coughing fits. She was seen here on 11/02/2022 for different symptoms of N/V/D and reports those symptoms have resolved and these new symptoms started on Saturday. She denies recent travel or sick contacts. She denies any measured fevers, dizziness, neck pain/ stiffness, paresthesias, palpitations, abdominal pain, back pain, flank pain, nausea/ vomiting/ diarrhea, lower extremity edema or calf tenderness or any other symptoms complaints or concerns at this time. MD elicited complaint: fever, cough, rhinorrhea and nasal congestion Pertinent past history: asthma Onset (ago): day(s) (4) Consistency: constant and progressively worsening Severity: severe Able to tolerate fluids by mouth: Yes Exacerbating factors: exertion, speaking, deep breaths and supine positioning Relieving factors: nothing Context: other ( Was recently seen here on 11/02/2022) Associated symptoms: fever, chills, myalgias, headache, rhinorrhea, nasal congestion, cough, chest pain and shortness of breath Treatments prior to arrival: other ( see above) Related Data Home Medications Medication Instructions Recorded Confirmed tizanidine 2 mg tablet 1 tab PO BEDTIME PRN muscle spasm 12/26/21 11/07/22 nitroglycerin 0.4 mg sublingual 0.4 mg sublingual Q5M PRN Chest 01/03/22 11/07/22 tablet Pain lifitegrast 5 % eye drops in a 1 drp ophthalmic (eye) BID 06/11/22 11/07/22 dropperette (Xiidra) Previous Rx's Medication Instructions Recorded letrozole 2.5 mg tablet 2.5 mg PO DAILY #90 tabs 11/08/21 atorvastatin 80 mg tablet 80 mg PO DAILY 90 days #90 tabs 02/06/22 ticagrelor 90 mg tablet (Brilinta) 90 mg PO BID 90 days #180 tabs 02/06/22 lancets 28 gauge (FreeStyle #100 ea 06/07/22 Lancets) pen needle, diabetic 31 gauge x #200 ea 06/07/22 5/16 (Comfort EZ Pen [place]) lamotrigine 25 mg tablet 25 mg PO BID 90 days #180 tabs 06/11/22 ondansetron 4 mg disintegrating 4 mg PO Q8H PRN nausea and 06/29/22 tablet vomiting #14 tabs pregabalin 150 mg capsule 150 mg PO .COMPLEX #30 caps 06/29/22 lubiprostone 8 mcg capsule 8 mcg PO BID 30 days #60 caps 07/18/22 (Amitiza) trazodone 100 mg tablet 100 mg PO BEDTIME 90 days #90 tabs 08/02/22 dulaglutide 1.5 mg/0.5 mL 1.5 mg (0.5 mL) subcut WE 30 days 08/07/22 subcutaneous pen injector #2.5 mL (Trulicity) Novolog Flexpen U-100 Insulin 100 2 - 10 unit subcut TIDAC 30 days 08/28/22 unit/mL (3 mL) subcutaneous #15 mL (insulin aspart U-100) dicyclomine 10 mg capsule 10 mg PO TID PRN for abdominal 08/28/22 pain 30 days #30 caps famotidine 20 mg tablet 20 mg PO BEDTIME 90 days #90 tabs 09/07/22 losartan 25 mg tablet 25 mg PO DAILY #90 tabs 09/07/22 blood sugar diagnostic (FreeStyle #100 ea 09/26/22 Lite Strips) pregabalin 200 mg capsule (Lyrica) 200 mg PO BEDTIME #30 caps 10/01/22 krdupmqxhj-qrntgpcjgnjok-[id number] 1 tab PO Q6H PRN pain 30 days #30 10/02/22 50 mg-325 mg-40 mg tablet tabs azithromycin 250 mg tablet 250 mg PO 3XW for asthma #12 tabs 10/17/22 ipratropium 0.5 mg-albuterol 3 mg 3 ml inhalation Q6H PRN wheezing 10/17/22 (2.5 mg base)/3 mL nebulization #180 mL soln sulfasalazine 500 mg tablet See Rx Instructions .Route 10/17/22 .COMPLEX #60 tabs pantoprazole 40 mg tablet,delayed 40 mg PO BID 90 days #180 tabs 10/18/22 release albuterol sulfate 90 mcg/actuation 2 inh inhalation Q4-6H PRN 10/24/22 breath activated powder inhaler shortness of breath or wheezing #1 ea morphine 15 mg immediate release 15 mg PO BID PRN pain #8 tabs 10/24/22 tablet prednisone 10 mg tablet 10 mg PO DAILY 5 days #5 tabs 10/24/22 albuterol sulfate 90 mcg/actuation 2 puff PO Q4-6H #8.5 ea 10/26/22 aerosol inhaler insulin degludec 100 unit/mL (3 20 unit (0.2 mL) subcut BEDTIME 90 11/07/22 mL) subcutaneous pen (Tresi days #18 mL FlexTouch U-100 insulin) levofloxacin 750 mg tablet 750 mg PO DAILY 7 days #7 tabs 11/07/22 Allergies Allergy/AdvReac Type Severity Reaction Status Date / Time dog dander [DOGS] Allergy Intermediate Respiratory Verified 11/07/22 15:36 distress ibuprofen [Ibuprofen] Allergy Intermediate STOMACH Verified 11/07/22 15:36 UPSET, abdominal pain, nausea and vomiting shellfish derived Allergy Intermediate Hives Verified 11/07/22 15:36 etanercept [From Enbrel] AdvReac Intermediate Facial Verified 11/07/22 15:36 Swelling metformin AdvReac Intermediate diarrhea Verified 11/07/22 15:36 metronidazole [From FLAGYL] AdvReac Intermediate DIARRHEA Verified 11/07/22 15:36 prednisone AdvReac Intermediate hallucinations, Verified 11/07/22 15:36 higher than 20 Review of Systems Review of Systems: Constitutional : + subjective fevers/ chills/fatigue/malaise, No Weight loss, No Night Sweats ENT/Mouth : No Hearing loss, No Ear Pain, + Nasal Congestion, No Sinus Pain, No Hoarseness, No sore throat, + Rhinorrhea, No Swallowing Difficulty Eyes: No Eye Pain, No Swelling, No Redness, No Foreign Body, No Discharge, No Vision Changes Cardiovascular : + Chest Pain, + SOB, No Dyspnea on Exertion, No Orthopnea, No Edema, No Palpitations Respiratory : + Cough, No Sputum, No Wheezing, No Smoke Exposure, No Dyspnea Gastrointestinal : No Nausea, No Vomiting, No Diarrhea, No Constipation, No abdominal Pain, No Hematochezia, No Melena Genitourinary : no irregular bleeding, No Dysuria, No Urinary Frequency, No Hematuria, No Urinary Incontinence, No Urgency, No Flank Pain, No Urinary Flow Changes, No Hesitancy Musculoskeletal : No joint pain, + Myalgias, No Joint Swelling Skin : No Skin Lesions, No rash Neuro : No Weakness, No Numbness, No Paresthesias, No Loss of Consciousness, No Dizziness, No Headache Psych : No Anxiety/Panic, No Depression, No SI/HI/AH/VH, No Social Issues, Heme/Lymph: No Bruising, No Bleeding,No Lymphadenopathy Endocrine : No Polyuria, No Polydipsia, No Temperature Intolerance Yes all other systems are reviewed and are negative PMFSH Past Medical History Attestation statement: The following information was validated with the patient. Source: old records reviewed and nursing notes reviewed Medical History Allergic rhinitis Anxiety Atherosclerotic cardiovascular disease Bipolar 1 disorder, depressed Bloody diarrhea Breast pain, right Bronchial asthma Colitis COPD (chronic obstructive pulmonary disease) COPD exacerbation Cough CVA (cerebral vascular accident) Depression Diabetes type 2, uncontrolled Dyslipidemia Fibromyalgia HLD (hyperlipidemia) Hospital discharge follow-up HTN (hypertension) Hyperkalemia Hyperlipidemia LDL goal <100 Hyperparathyroidism Hypertension Hypothyroid IDDM (insulin dependent diabetes mellitus) Infiltrating ductal carcinoma of left breast, stage 2 Insomnia Irritable bowel Osteoporosis PAD (peripheral artery disease) Rash Reactive airways dysfunction syndrome Restrictive airway disease Seropositive rheumatoid arthritis T2DM (type 2 diabetes mellitus) Thyroid nodule Vitamin D deficiency Surgical History H/O cardiac catheterization H/O: hysterectomy History of bronchoscopy History of bunionectomy of both great toes History of colonoscopy History of esophagogastroduodenoscopy (EGD) History of lumpectomy of left breast History of pubovaginal sling History of tubal ligation Hx of endoscopy Family History Family History Mother Diabetes HTN (hypertension) Uterus cancer Malignant tumor of head Breast cancer Father Diabetes HTN (hypertension) CVD (cardiovascular disease) Heart problem Maternal Aunt Breast cancer Brother Myocardial infarction S/P CABG x 4 Family/Other FH: mental illness Family/Other Lung cancer Other Mental health disorder Social History Social History Household Members: Family Household Members Other:: sister Housing: Apartment Are you a primary out of school hours care worker to a significant other at home: No Do you presently have visiting nurse or other home services: Yes (sister=hand edger) Alcohol intake: never Patient Tobacco Use Status: Current everyday Tobacco user Tobacco use type: Cigarette Cigarettes Per Day: 2 Years Smoked: 50 +/- e-Cigarette/Vaping Use: Former Use Second Hand Smoke Exposure: No Advance Directives: Yes Advance Directives on File: Yes Advance Directives Date on File: 12/22/21 service: No Current occupational status: disabled Current occupation: rt handed Cognitive needs: No Hearing needs: No Vision needs: Yes Physical Exam Vital Signs: Vital Signs: Last Vital Signs Temp 98.1 F 11/08/22 16:00 Pulse 98 11/08/22 17:13 Resp 16 11/08/22 17:27 BP 166/87 H 11/08/22 16:00 Pulse Ox 95 11/08/22 17:13 O2 Del Method 11/08/22 17:13 BMI result Body Mass Index 24.6 vital signs have been reviewed as normal and appeared to be correct. Blood pressure 166/87 Heart rate 108. Respiration rate 38. Temperature normal. Ox ygen saturation normal. Appearance: Alert. Oriented X3. in acute respiratory distress. Head: Normal external exam. Normocephalic. Atraumatic. Eyes: PERRLA. EOMI. Conjunctiva and sclera normal. Eyelids normal. ENT: EAC normal. TM's Normal. Pharynx normal. Uvula midline. Moist mucous membranes. No lesions/ulcerations or masses noted on the tongue. Normal voice. No trismus noted. No drooling noted. No muffled voice noted. Neck: Normal inspection. Neck supple. FROM. No adenopathy. Thyroid Normal. No tracheal deviation noted. No crepitus is noted. No meningeal signs. No neck mass noted. No signs of trauma noted. CVS: Normal heart rate and rhythm. Heart sound normal. Pulses normal throughout. No murmurs/rales/gallops. Respiratory: In acute respiratory distress with decreased breath sounds and pain on inspiration with inspiratory and expiratory wheezing throughout with accessory muscle usage noted and tracheal tugging and abdominal retractions. No rales/ rhonchi noted. No crepitus is noted. No signs of trauma noted. No rashes are noted. Abdomen: Soft and nontender. Nondistended. No guarding. No rigidity. Bowel sounds normal in all 4 quadrants. No distention noted. No organomegaly noted. No visible injury noted. No rebound tenderness. Negative Rovsing sign. Negative obturator's sign. Negative psoas sign. Negative Lopez sign. Back: No CVA tenderness. Full range of motion noted. Nontender. No signs of trauma. Patient neuro intact bilaterally and distally on all 4 extremities. Patient's reflexes intact bilaterally and distally on all 4 extremities. No rashes/lesion/induration/fluctuance or signs of infection noted. Skin: Skin warm and dry. Normal skin color. Normal skin turgor. No rashes/lesions/lacerations noted. Extremities: No lower extremity edema. No calf tenderness is noted. Extremities exhibit normal range of motion and nontender. Neuro: Oriented X 3. No motor deficit. No sensory deficit. Reflexes normal. Normal steady gait. No focal neuro deficits noted. CN's II-XII intact bilaterally? Vascular: + radial pulses/+ 2 distal pedal pulses/+2 dorsalis pedis b/l. Normal cap refill. No cyanosis noted to upper extremity nails and lower extremity toes nails. Course Course Course Narrative: 15:53 - 62-year-old female with a past medical history of hypertension, hyperlipidemia, CAD status post stents in December 2021, colitis, diabetes and asthma who is a current daily smoker, history of breast cancer, P 80, reactive airway disease, rheumatoid arthritis, osteoporosis, fibromyalgia, anxiety and d epression who is presenting to the ED via EMS with complaints of fevers, chills, malaise, body aches, nasal congestion/ rhinorrhea, cough with shortness of breath nonproductive that started on Saturday worse today. She received 2 DuoNebs prior to arrival by EMS with minimal to no symptomatic relief. She reports going into coughing fits. She was seen here on 11/02/2022 for different symptoms of N/V/D and reports those symptoms have resolved and these new symptoms started on Saturday. Plan: Will obtain labs, EKG, chest x-ray, placed on a satellite project site monitor. Provide a L of IV fluids, an hour long breathing treatment, 2 g of magnesium IV, 2 g of Rocephin, 125 mg of Solu-Medrol, 10 mL of Robitussin with codeine, 975 mg of Tylenol and re-evaluate. Reevaluation(s) Reevaluation #1: Labs obtained revealed - BUN 8. - Random glucose 129. - Lactic acid 4.5 this is most likely type B lactic acidosis from the albuterol breathing treatment/updrafts that she received prior to arrival, - total protein 6.4. - Patient positive for influenza A. Otherwise all other labs are within normal limits. Chest x-ray within normal limits no acute processes are noted. EKG is sinus tachycardia with ventricular rate of 101 with a normal [place] interval normal QRS duration normal QT/QTC interval. No acute ischemic change are noted. Therefore at this time will give the patient Tamiflu and plan to admit for influenza with bronchospasm/ asthma exacerbation. Patient understands agrees with this plan. I discussed this case with the hospitalist Dr. Perez Time: 17:29 Medications Administered Discontinued Medications Generic Name Dose Route Start Last Admin Trade Name Freq PRN Reason Stop Dose Admin Acetaminophen 975 mg 11/08/22 16:05 11/08/22 16:09 Acetaminophen 325 Mg Tablet PO 11/08/22 16:06 975 mg ONCE ONE Administration Albuterol Sulfate 7.5 mg/ 0 mg 11/08/22 16:04 11/08/22 16:15 Albuterol/Ipratropium 3 ml INHALE 11/08/22 16:05 1 each ONCE ONE Administration Guaifenesin/Codeine Phosphate 10 ml 11/08/22 15:54 11/08/22 15:59 Guaifen/Codeine Sf 200/20/10ml 10 Ml Liquid PO 11/08/22 15:55 10 ml ONCE ONE Administration Magnesium Sulfate 2 gm in 50 mls @ 25 mls/hr 11/08/22 15:52 11/08/22 16:40 Magnesium Sulfate/H2o IV 11/08/22 17:51 Infused ONCE ONE Infusion Sodium Chloride 1,000 mls @ 999 mls/hr 11/08/22 16:00 11/08/22 15:59 Ns IVCONT 11/08/22 17:00 999 mls/hr .Q1H1M ELDER Administration Ceftriaxone Sodium 2 gm/ 50 mls @ 100 mls/hr 11/08/22 16:54 11/08/22 17:42 Sodium Chloride IV 11/08/22 17:23 Infused ONCE ONE Infusion Sodium Chloride 1,605.72 mls @ 1,605.72 mls/hr 11/08/22 17:12 11/08/22 17:28 Ns 30 ml/kg infuse over 1 hr (1605.72 ml) 11/08/22 18:11 1,605.72 mls/hr IV Administration .Q1H STA Methylprednisolone Sodium Succinate 125 mg 11/08/22 15:52 11/08/22 15:59 Methylprednisolone Sod Succ 125 Mg/2 Ml Vial IVPUSH 11/08/22 15:53 125 mg ONCE ONE Administration Morphine Sulfate 4 mg 11/08/22 17:12 11/08/22 17:27 Morphine Sulfate 4 Mg/Ml Cartridge IVPUSH 11/08/22 17:13 4 mg ONCE ONE Administration Protocol Ondansetron HCl 4 mg 11/08/22 17:12 11/08/22 17:27 Ondansetron Hcl 4 Mg/2 Ml Vial IVPUSH 11/08/22 17:13 4 mg ONCE ONE Administration Oseltamivir Phosphate 75 mg 11/08/22 17:15 11/08/22 17:27 Oseltamivir Phosphate 75 Mg Capsule PO 11/08/22 17:16 75 mg ONCE ONE Administration Medical Decision Making Consult Healthcare Provider Management of the patient was discussed with: Hospitalist Lab Data MDM Lab Attestation statement: I reviewed the patient's lab results. Result Diagrams: 11/08/22 16:16 11/08/22 16:14 Labs: Lab Results 11/08/22 11/08/22 11/08/22 Range/Units 16:13 16:14 16:14 WBC (4.8-10.8) X10*3/uL RBC (4.20-5.50) X10*6/uL Hgb (12.0-16.0) g/dl Hct (37.0-47.0) % MCV (80.0-98.0) fL MCH (27.0-33.0) pg MCHC (31.0-35.0) g/dl RDW (11.0-16.0) % Plt Count (160-400) X10*3/uL MPV (9.4-12.3) fL Immature Gran % (Auto) (0.0-0.4) % Neut % (Auto) (45-73) % Lymph % (Auto) (20-40) % [place] % (Auto) (2-11) % Eos % (Auto) (0-4) % Baso % (Auto) (0-2) % Lymph # (Auto) (1.2-4.9) X10*3/uL [place] # (Auto) (0.1-1.2) X10*3/uL Eos # (Auto) (0.0-0.4) X10*3/uL Baso # (Auto) (0.0-0.2) X10*3/uL Abs Immat Gran (auto) (0.00-0.03) X10*3/uL Absolute Neuts (auto) (2.0-8.3) x10*3/uL Absolute Nucleated RBC (0.0-0.012) X10*3/uL Nucleated RBC % (auto) (0.0-0.2) /100WBC PT (10.0-13.1) SEC INR (0.9-1.1) Sodium 141 (135-145) mmol/L Potassium 4.4 (3.3-5.1) mmol/L Chloride 106 (96-108) mmol/L Carbon Dioxide 24 (22-29) mmol/L Anion Gap 15 (12-20) BUN 8 L (9-16) mg/dL Creatinine 0.82 (0.5-1.4) mg/dL Estim Creat Clear Calc 82.6 Estimated GFR > 60 Random Glucose 129 H (60-115) mg/dL Lactic Acid (0.5-2.0) mmol/L Calcium 9.0 D (8.4-10.2) mg/dL Magnesium 2.2 (1.6-2.6) mg/dL Total Bilirubin 0.3 (0.0-1.0) mg/dL AST 19 (5-31) U/L ALT 17 (0-31) U/L Alkaline Phosphatase 68 (39-117) U/L Troponin I High Sens 5.5 (<3.5-17.0) ng/L Total Protein 6.4 L (6.5-8.0) g/dL Albumin 3.8 (3.5-5.0) g/dL Influenza Type A (PCR) POSITIVE A (Negative) Influenza Type B (PCR) NEGATIVE (Negative) RSV RNA Qual (PCR) NEGATIVE (Negative) SARS-CoV-2 RNA (RT-PCR) NEGATIVE (Negative) 11/08/22 11/08/22 11/08/22 Range/Units 16:15 16:16 16:18 WBC 9.8 (4.8-10.8) X10*3/uL RBC 4.52 D (4.20-5.50) X10*6/uL Hgb 13.0 (12.0-16.0) g/dl Hct 39.2 D (37.0-47.0) % MCV 86.7 (80.0-98.0) fL MCH 28.8 (27.0-33.0) pg MCHC 33.2 (31.0-35.0) g/dl RDW 13.6 (11.0-16.0) % Plt Count 304 (160-400) X10*3/uL MPV 9.8 (9.4-12.3) fL Immature Gran % (Auto) 0.4 (0.0-0.4) % Neut % (Auto) 45.1 (45-73) % Lymph % (Auto) 46.0 H (20-40) % [place] % (Auto) 7.6 (2-11) % Eos % (Auto) 0.7 (0-4) % Baso % (Auto) 0.2 (0-2) % Lymph # (Auto) 4.5 (1.2-4.9) X10*3/uL [place] # (Auto) 0.7 (0.1-1.2) X10*3/uL Eos # (Auto) 0.1 (0.0-0.4) X10*3/uL Baso # (Auto) 0.0 (0.0-0.2) X10*3/uL Abs Immat Gran (auto) 0.04 H (0.00-0.03) X10*3/uL Absolute Neuts (auto) 4.4 (2.0-8.3) x10*3/uL Absolute Nucleated RBC 0.000 (0.0-0.012) X10*3/uL Nucleated RBC % (auto) 0.0 (0.0-0.2) /100WBC PT 12.9 (10.0-13.1) SEC INR 1.1 (0.9-1.1) Sodium (135-145) mmol/L Potassium (3.3-5.1) mmol/L Chloride (96-108) mmol/L Carbon Dioxide (22-29) mmol/L Anion Gap (12-20) BUN (9-16) mg/dL Creatinine (0.5-1.4) mg/dL Estim Creat Clear Calc Estimated GFR Random Glucose (60-115) mg/dL Lactic Acid 4.5 H* (0.5-2.0) mmol/L Calcium (8.4-10.2) mg/dL Magnesium (1.6-2.6) mg/dL Total Bilirubin (0.0-1.0) mg/dL AST (5-31) U/L ALT (0-31) U/L Alkaline Phosphatase (39-117) U/L Troponin I High Sens (<3.5-17.0) ng/L Total Protein (6.5-8.0) g/dL Albumin (3.5-5.0) g/dL Influenza Type A (PCR) (Negative) Influenza Type B (PCR) (Negative) RSV RNA Qual (PCR) (Negative) SARS-CoV-2 RNA (RT-PCR) (Negative) Independent Interpretation I performed an independent interpretation of an: EKG ( sinus tachycardia with ventricular rate of 101 with a normal [place] interval normal QRS duration normal QT/QTC interval. No acute ischemic change are noted.) and Plain X-Ray Interpretation: chest x-ray FINDINGS: There is no evidence of acute parenchymal disease, pneumothorax, or pleural effusion. Heart normal size. No evidence of pulmonary edema. Old healed right rib fracture. XR/XR chest 1V IMPRESSION: No acute disease. Radiology Impression Discussion of test interpretation with radiology: I have reviewed the radiologist's reading. External Record Review External record reviewed: Inpatient record, Office record, Outpatient record, Prior outpatient labs, Prior outpatient radiology, Primary care record and Outside ED record Chronic Conditions Patient?s care impacted by: Diabetes and Hypertension Critical Care Time Critical Care Time Critical Care Time: Yes Total Critical Care Time: 60 Attestation: I personally attest to this time spent taking care of the patient Discharge Plan Discharge Clinical Impression: Influenza A, Asthma exacerbation, Bronchospasm Patient Disposition: Admitted As Inpatient
[2022-11-08] MEDS: Morphine Sulfate 4 MG/ML CARTRIDGE IVPUSH (17:27)
[2022-11-08] MEDS: ondansetron HCL 4 MG/2 ML VIAL IVPUSH (17:27)
[2022-11-08] MEDS: Oseltamivir Phosphate 75 MG CAPSULE PO (17:27)
--- NOTE | 2022-11-08 18:27 | PM.IMHP ---
History of Present Illness Date of Service: 11/08/22 Chief Complaint: dyspnea/wheeze 62yo F with HTN, HLD, CAD s/p PCI, DM2, PAD, ashtma, COPD, steroid-dependent rheumatoid arthritis, fibromyalgia, and bipolar depression who presents to the ED with 5 days of fever to 102, chills, malaise, myalgias, laryngitis, dry cough, dyspnea, and wheeze. She was just seen by her PCP yesterday and prescribed levofloxacin. Here in the ED, she was not hypoxic but was tachycardic and tachypneic, as high as 38. She was given multiple nebulized albuterol/ipratropium treatments along with IV methlyprednisolone, IV magnesium sulfate, and IV ceftriaxone. CXR was negative for infiltrate. However, influenza A PCR was positive. Lactate as 4.5. She was given PO oseltamivir. Due to persistent respiratory distress, she was referred to the hospitalist team for admission. Review of Systems Review of Systems: Yes all other systems are reviewed and are negative [facility] Medical History Allergic rhinitis Anxiety Atherosclerotic cardiovascular disease Bipolar 1 disorder, depressed Bloody diarrhea Breast pain, right Bronchial asthma Colitis COPD (chronic obstructive pulmonary disease) COPD exacerbation Cough CVA (cerebral vascular accident) Depression Diabetes type 2, uncontrolled Dyslipidemia Fibromyalgia HLD (hyperlipidemia) Hospital discharge follow-up HTN (hypertension) Hyperkalemia Hyperlipidemia LDL goal <100 Hyperparathyroidism Hypertension Hypothyroid IDDM (insulin dependent diabetes mellitus) Infiltrating ductal carcinoma of left breast, stage 2 Insomnia Irritable bowel Osteoporosis PAD (peripheral artery disease) Rash Reactive airways dysfunction syndrome Restrictive airway disease Seropositive rheumatoid arthritis T2DM (type 2 diabetes mellitus) Thyroid nodule Vitamin D deficiency Family History Mother Diabetes HTN (hypertension) Uterus cancer Malignant tumor of head Breast cancer Father Diabetes HTN (hypertension) CVD (cardiovascular disease) Heart problem Maternal Aunt Breast cancer Brother Myocardial infarction S/P CABG x 4 Family/Other FH: mental illness Family/Other Lung cancer Other Mental health disorder Surgical History H/O cardiac catheterization H/O: hysterectomy History of bronchoscopy History of bunionectomy of both great toes History of colonoscopy History of esophagogastroduodenoscopy (EGD) History of lumpectomy of left breast History of pubovaginal sling History of tubal ligation Hx of endoscopy Social History Household Members: Other Household Members Other:: sister Housing: Apartment Are you a primary care team assistant to a significant other at home: No Do you presently have visiting nurse or other home services: Yes Alcohol intake: never Patient Tobacco Use Status: Current everyday Tobacco user Tobacco use type: Cigarette Cigarettes Per Day: 2 Years Smoked: 50 +/- Smoked in Last 30 Days: Yes e-Cigarette/Vaping Use: Never Used Patient Interested in Nicotine Replacement: No Patient Given Instructions on How to Stop Smoking: No Second Hand Smoke Exposure: No Use of substances other than those prescribed or required for medical reasons: No Currently Displaying Signs/Symptoms of Drug Intoxication Withdrawal: No Any prior treatment program specific to substance use: No Have you been hit, kicked, punched, or otherwise hurt by someone within the past year? If so, by whom?: No Do you feel safe in your current relationship?: No Current Relationship Is there a partner from a previous relationship who is making you feel unsafe now?: No Are you made to feel afraid or neglected: No Advance Directives: Yes Advance Directives on File: Yes Advance Directives Date on File: 12/22/21 Do you have thoughts of harming others: None Do you have a plan to hurt others: No Plan Recently lost weight without trying: Yes How much weight loss: 2-13 pounds Eating poorly because of decreased appetite: Yes Nutrition screen score: 4 Nutrition Risks: Diabetes new onset/Uncontrolled Patient : No : No Poor oral hygiene: No service: No Current occupational status: disabled Current occupation: rt handed Cognitive needs: No Hearing needs: No Vision needs: Yes Meds Allergies Allergy/AdvReac Type Severity Reaction Status Date / Time dog dander [DOGS] Allergy Intermediate Respiratory Verified 11/07/22 15:36 distress ibuprofen [Ibuprofen] Allergy Intermediate STOMACH Verified 11/07/22 15:36 UPSET, abdominal pain, nausea and vomiting shellfish derived Allergy Intermediate Hives Verified 11/07/22 15:36 etanercept [From Enbrel] AdvReac Intermediate Facial Verified 11/07/22 15:36 Swelling metformin AdvReac Intermediate diarrhea Verified 11/07/22 15:36 metronidazole [From FLAGYL] AdvReac Intermediate DIARRHEA Verified 11/07/22 15:36 prednisone AdvReac Intermediate hallucinations, Verified 11/07/22 15:36 higher than 20 Active Medications: Current Medications Oseltamivir Phosphate (Oseltamivir Phosphate 75 Mg Capsule) 75 mg PO Q12H ELDER Stop: 11/12/22 18:31 Last Admin: 11/08/22 18:24 Dose: Not Given Pharmacy Consult (Consult Rx Perform Med Rec) 1 each MISCELLANE STAT STA Stop: 11/08/22 17:42 Home Medications Medication Instructions Recorded Confirmed Last Taken Type nitroglycerin 0.4 mg sublingual 0.4 mg sublingual Q5M PRN Chest 01/03/22 11/08/22 Unknown History tablet Pain aspirin 81 mg tablet,delayed 81 mg PO DAILY 11/08/22 11/08/22 11/08/22 History release azithromycin 250 mg tablet 250 mg PO MOWEFR@0900 for asthma 11/08/22 11/08/22 11/07/22 History dulaglutide 1.5 mg/0.5 mL 1.5 mg subcut TH@0900 11/08/22 11/08/22 11/01/22 History subcutaneous pen injector (Trulicity) letrozole 2.5 mg tablet 2.5 mg PO BEDTIME 11/08/22 11/08/22 11/07/22 History metoprolol tartrate 25 mg tablet 0.5 tab PO BID 11/08/22 11/08/22 11/08/22 09:00 History prednisone 5 mg tablet 1 tab PO DAILY asthma 11/08/22 11/08/22 11/08/22 History pregabalin 150 mg capsule 150 mg PO DAILY 11/08/22 11/08/22 11/08/22 History sulfasalazine 500 mg tablet 500 mg PO BID 11/08/22 11/08/22 11/08/22 09:00 History Physical Exam Vital Signs and Narrative: Vital Signs: Last Vital Signs Temp 98.1 F 11/08/22 16:00 Pulse 98 11/08/22 17:13 Resp 16 11/08/22 17:27 BP 166/87 H 11/08/22 16:00 Pulse Ox 95 11/08/22 17:13 O2 Del Method 12/22/22 17:13 BMI result Body Mass Index 24.6 Gen: in moderate resp distress HEENT: sclera anicteric, moist mucus membranes Neck: supple Lungs: extensive inspiratory and expiratory wheezing, diminished breath sounds, tachypneic Heart: regular rate and rhythm, no murmurs Abd: soft, non-tender, non-distended Ext: no edema Skin: warm/well-perfused Neuro: alert and oriented x3, no focal findings Psych: appropriate affect Results Labs CBC and Chem 7: 11/08/22 16:16 11/08/22 16:14 Labs: Laboratory Results - last 24 hr 11/08/22 11/08/22 11/08/22 16:13 16:14 16:14 MCV MCH MCHC RDW Plt Count MPV Immature Gran % (Auto) Neut % (Auto) Lymph % (Auto) [place] % (Auto) Eos % (Auto) Baso % (Auto) Lymph # (Auto) [place] # (Auto) Eos # (Auto) Baso # (Auto) Abs Immat Gran (auto) Absolute Neuts (auto) Absolute Nucleated RBC Nucleated RBC % (auto) PT INR Anion Gap 15 Estim Creat Clear Calc 82.6 Estimated GFR > 60 Random Glucose 129 H Lactic Acid Calcium 9.0 D Magnesium 2.2 Total Bilirubin 0.3 AST 19 ALT 17 Alkaline Phosphatase 68 Troponin I High Sens 5.5 Total Protein 6.4 L Albumin 3.8 Influenza Type A (PCR) POSITIVE A Influenza Type B (PCR) NEGATIVE RSV RNA Qual (PCR) NEGATIVE SARS-CoV-2 RNA (RT-PCR) NEGATIVE 11/08/22 11/08/22 11/08/22 16:15 16:16 16:18 MCV 86.7 MCH 28.8 MCHC 33.2 RDW 13.6 Plt Count 304 MPV 9.8 Immature Gran % (Auto) 0.4 Neut % (Auto) 45.1 Lymph % (Auto) 46.0 H [place] % (Auto) 7.6 Eos % (Auto) 0.7 Baso % (Auto) 0.2 Lymph # (Auto) 4.5 [place] # (Auto) 0.7 Eos # (Auto) 0.1 Baso # (Auto) 0.0 Abs Immat Gran (auto) 0.04 H Absolute Neuts (auto) 4.4 Absolute Nucleated RBC 0.000 Nucleated RBC % (auto) 0.0 PT 12.9 INR 1.1 Anion Gap Estim Creat Clear Calc Estimated GFR Random Glucose Lactic Acid 4.5 H* Calcium Magnesium Total Bilirubin AST ALT Alkaline Phosphatase Troponin I High Sens Total Protein Albumin Influenza Type A (PCR) Influenza Type B (PCR) RSV RNA Qual (PCR) SARS-CoV-2 RNA (RT-PCR) Imaging Radiologist's Impressions: Impressions Chest X-Ray 11/08/22 16:00 IMPRESSION: No acute disease. Assessment and Plan (1) Influenza A: Status: Acute (2) Asthma exacerbation: Status: Acute Plan 62yo F with HTN, HLD, CAD s/p PCI, DM2, PAD, ashtma, COPD, steroid-dependent rheumatoid arthritis, fibromyalgia, and bipolar depression presenting with 5 days of flu-like symptoms and found to have influenza A with acute asthma/COPD exacerbation. 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 Quality Stroke Does the patient have a stroke diagnosis?: No VTE Prior VTE?: No VTE Risk Level:: Medical - moderate - high VTE Device Contraindication: N/A - Device Ordered VTE Drug Contraindication: N/A - Med Ordered
[2022-11-08 19:19] LABS: Procalcitonin 0.06 ng/mL
--- NOTE | 2022-11-08 19:25 | PC.NURSE ---
Phlebotomy at bedside drawing repeat lactic acid level.
[2022-11-08] MEDS: Albuterol/Iprat 2.5/0.5MG 3 ML AMPUL.NEB INHALE (19:28)
--- NOTE | 2022-11-08 19:30 | PHA.MEDREC ---
Pharmacy Consult ? Medication Reconciliation Pharmacy has completed the medication reconciliation. Patient had list with them. Confirmed meds outside list.
[2022-11-08 19:51] LABS: ~Lactic Acid-LAB USE ONLY 1.2 mmol/L (0.5-2.0)
--- NOTE | 2022-11-08 21:44 | MHC.CM.PN ---
ESE 11/08. Lives with sister. HCP/Sister/ACADEMIC COORDINATOR Gerri Joiner ([phone]). HCP on file. Moderna x2. No booster. Nebulizer/walker. D/C plan: Home with ACADEMIC COORDINATOR. Family will transport. CM to follow for discharge planning.
[2022-11-08] MEDS: Acetaminophen 325 MG TABLET 650 MG PO (21:46)
[2022-11-08] MEDS: Enoxaparin Sodium 40 MG/0.4 ML SYRINGE SUBCUT (21:46)
[2022-11-08] MEDS: Albuterol Sulfate (0.083%) 2.5 MG/3 ML VIAL.NEB INHALE (22:29)
[2022-11-09] VITALS (8 sets, daily range): BP systolic 121–145; BP diastolic 75–83; PULSE 84–107; RESP 18–20; TEMP 36.2–36.6; O2SAT 94–97; BMI 26.3
[2022-11-09] MEDS: Albuterol Sulfate (0.083%) 2.5 MG/3 ML VIAL.NEB INHALE (02:57)
[2022-11-09] MEDS: Benzonatate 100 MG CAPSULE PO (03:30)
[2022-11-09] MEDS: Acetaminophen 325 MG TABLET 650 MG PO (03:31)
[2022-11-09] MEDS: 0.9 % Sodium Chloride Flush 3 ML SYRINGE IVFLUSH ×4 (03:31→20:58)
[2022-11-09] MEDS: Oseltamivir Phosphate 75 MG CAPSULE PO ×2 (05:32→17:58)
[2022-11-09] MEDS: Albuterol/Iprat 2.5/0.5MG 3 ML AMPUL.NEB INHALE ×3 (08:12→19:15)
[2022-11-09] MEDS: lamoTRIgine 25 MG TABLET PO ×2 (09:44→20:56)
[2022-11-09] MEDS: methylPREDNISolone Sod Succ 40 MG/ML VIAL IVPUSH ×2 (09:44→20:51)
[2022-11-09] MEDS: SUMAtriptan succinate 50 MG TABLET PO (09:44)
[2022-11-09] MEDS: Azithromycin 250 MG TABLET PO (09:45)
[2022-11-09] MEDS: Losartan Potassium 25 MG TABLET PO (09:45)
[2022-11-09] MEDS: Atorvastatin Calcium 80 MG TABLET PO (09:45)
[2022-11-09] MEDS: Metoprolol Tartrate 12.5 MG HALFTAB PO ×2 (09:45→20:56)
[2022-11-09] MEDS: Aspirin Enteric Coated 81 MG TABLET.DR PO (09:45)
[2022-11-09] MEDS: sulfaSALAzine 500 MG TABLET PO ×2 (09:45→20:56)
[2022-11-09] MEDS: Insulin Lispro 100 UNIT/ML 3 ML VIAL SUBCUT ×4 (09:46→20:52)
[2022-11-09] MEDS: Ticagrelor 90 MG TABLET PO ×2 (09:47→20:56)
[2022-11-09] MEDS: predniSONE 5 MG TABLET PO (09:47)
[2022-11-09] MEDS: Pregabalin 150 MG CAPSULE PO (10:00)
[2022-11-09] MEDS: Albuterol Sulfate 7.5 MG, Albuterol/Iprat 2.5/0.5MG 3 ML 3 ML INHALE (10:33)
--- NOTE | 2022-11-09 10:33 | HO.PM.IMPN ---
Subjective Subjective Date of Service: 11/09/22 Interval History: c/o severe wheezing c/o L-sided throbbing ZHENG + photophobia no purulent sputum no fever Review of Systems Review of Systems: Yes all other systems are reviewed and are negative Physical Exam Vital Signs: Vital Signs: Last Vital Signs Temp 97.9 F 11/09/22 08:00 Pulse 92 11/09/22 08:13 Resp 20 11/09/22 08:13 BP 121/83 11/09/22 08:00 Pulse Ox 97 11/09/22 08:00 O2 Del Method 11/09/22 08:00 BMI result Body Mass Index 26.3 Gen: in mild resp distress HEENT: sclera anicteric, moist mucus membranes Neck: supple Lungs: extensive inspiratory and expiratory wheezing, diminished breath sounds Heart: regular rate and rhythm, no murmurs Abd: soft, non-tender, non-distended Ext: no edema Skin: warm/well-perfused Neuro: alert and oriented x3, no focal findings Psych: appropriate affect Objective Data Active Medications Acetaminophen (Acetaminophen 325 Mg Tablet) 650 mg PO Q6H PRN PRN Reason: Pain, Mild (Pain Scale 1-3) Last Admin: 11/09/22 03:31 Dose: 650 mg Documented By: JOSE CARLOS Albuterol Sulfate (Albuterol Sulfate (0.083%) 2.5 Mg/3 Ml Vial.Neb) 2.5 mg INHALE Q2H PRN PRN Reason: Shortness of Breath/Wheezing Last Admin: 11/09/22 02:57 Dose: 2.5 mg Documented By: DEE Albuterol/Ipratropium (Albuterol/Iprat 2.5/0.5mg 3 Ml Ampul.Neb) 3 ml INHALE RQ4H WHILE AWAKE [facility] Last Admin: 11/09/22 08:12 Dose: 3 ml Documented By: ABDULAZIZ Aspirin (Aspirin Enteric Coated 81 Mg Tablet.) 81 mg PO DAILY [facility] Last Admin: 11/09/22 09:45 Dose: 81 mg Documented By: KEVIN Atorvastatin Calcium (Atorvastatin Calcium 80 Mg Tablet) 80 mg PO DAILY [facility] Last Admin: 11/09/22 09:45 Dose: 80 mg Documented By: KEVIN Azithromycin (Azithromycin 250 Mg Tablet) 250 mg PO MOWEFR@0900 [facility] Last Admin: 11/09/22 09:45 Dose: 250 mg Documented By: KEVIN Dextrose (Dextrose 50 % 25 Gm/50 Ml Syringe) 25 gm IVPUSH Q15M PRN; Protocol PRN Reason: per Hypoglycemia Standing Ord. Dicyclomine HCl (Dicyclomine Hcl 10 Mg Capsule) 10 mg PO TID PRN PRN Reason: for abdominal pain Enoxaparin Sodium (Enoxaparin Sodium 40 Mg/0.4 Ml Syringe) 40 mg SUBCUT Q24H [facility] Last Admin: 11/08/22 21:46 Dose: 40 mg Documented By: CRESENCIO Famotidine (Famotidine 20 Mg Tablet) 20 mg PO BEDTIME [facility] Glucose (Glucose Gel 15 Gm Gel..Gram.) 15 gm PO Q15M PRN; Protocol PRN Reason: per Hypoglycemia Standing Ord. Guaifenesin/Dextromethorphan (Guaifenesin Dm 100/10/5 Ml 5 Ml Syrup) 5 ml PO Q4H PRN PRN Reason: cough/ Insulin Glargine (Insulin Glargine,Hum.Rec.Anlog 100 Unit/Ml 10 Ml Vial) 20 unit SUBCUT BEDTIME ELDER Insulin Human Lispro (Insulin Lispro 100 Unit/Ml 3 Ml Vial) 0 unit SUBCUT QIDACHS [facility]; Protocol Last Admin: 11/09/22 09:46 Dose: 4 unit Documented By: KEVIN Comments: given unscheduled now per Lamotrigine (Lamotrigine 25 Mg Tablet) 25 mg PO BID [facility] Last Admin: 11/09/22 09:44 Dose: 25 mg Documented By: KEVIN Letrozole (Letrozole 2.5 Mg Tablet) 2.5 mg PO BEDTIME [facility] Losartan Potassium (Losartan Potassium 25 Mg Tablet) 25 mg PO DAILY [facility]; Protocol Last Admin: 11/09/22 09:45 Dose: 25 mg Documented By: KEVIN Methylprednisolone Sodium Succinate (Methylprednisolone Sod Succ 40 Mg/Ml Vial) 40 mg IVPUSH Q12H [facility] Last Admin: 11/09/22 09:44 Dose: 40 mg Documented By: KEVIN Metoprolol Tartrate (Metoprolol Tartrate 12.5 Mg Halftab) 12.5 mg PO BID [facility]; Protocol Last Admin: 11/09/22 09:45 Dose: 12.5 mg Documented By: KEVIN Morphine Sulfate (Morphine Sulfate Immed Release 15 Mg Tablet) 15 mg PO BID PRN PRN Reason: pain severe Nitroglycerin (Nitroglycerin 0.4 Mg Tab.Subl) 0.4 mg SUBLINGUAL Q5M PRN PRN Reason: Chest Pain Non-Formulary Medication (Lubiprostone [Amitiza]) 8 mcg PO BID [facility] Omeprazole (Omeprazole 20 Mg Capsule.Dr) 20 mg PO BID@0630,1630 [facility] Ondansetron HCl (Ondansetron Hcl 4 Mg/2 Ml Vial) 4 mg IVPUSH Q8H PRN PRN Reason: Nausea and Vomiting Oseltamivir Phosphate (Oseltamivir Phosphate 75 Mg Capsule) 75 mg PO Q12H [facility] Stop: 11/12/22 18:31 Last Admin: 11/09/22 05:32 Dose: 75 mg Documented By: JOSE CARLOS Prednisone (Prednisone 5 Mg Tablet) 5 mg PO DAILY [facility] Last Admin: 11/09/22 09:47 Dose: 5 mg Documented By: KEVIN Pregabalin (Pregabalin 200 Mg Capsule) 200 mg PO BEDTIME [facility] Pregabalin (Pregabalin 150 Mg Capsule) 150 mg PO DAILY [facility] Sodium Chloride (0.9 % Sodium Chloride Flush 3 Ml Syringe) 3 ml IVFLUSH QSHIFT [facility] Last Admin: 11/09/22 09:47 Dose: 3 ml Documented By: KEVIN Sulfasalazine (Sulfasalazine 500 Mg Tablet) 500 mg PO BID [facility] Last Admin: 11/09/22 09:45 Dose: 500 mg Documented By: KEVIN Sumatriptan Succinate (Sumatriptan Succinate 50 Mg Tablet) 50 mg PO DAILY MRX1 PRN PRN Reason: migraine zheng Last Admin: 11/09/22 09:44 Dose: 50 mg Documented By: KEVIN Ticagrelor (Ticagrelor 90 Mg Tablet) 90 mg PO BID [facility] Last Admin: 11/09/22 09:47 Dose: 90 mg Documented By: KEVIN Trazodone HCl (Trazodone Hcl 100 Mg Tablet) 100 mg PO BEDTIME [facility] Labs CBC & Chem 7: 11/08/22 16:16 11/08/22 16:14 Labs: Laboratory Results - last 24 hr 11/08/22 11/08/22 11/08/22 16:13 16:14 16:14 MCV MCH MCHC RDW Plt Count MPV Immature Gran % (Auto) Neut % (Auto) Lymph % (Auto) [place] % (Auto) Eos % (Auto) Baso % (Auto) Lymph # (Auto) [place] # (Auto) Eos # (Auto) Baso # (Auto) Abs Immat Gran (auto) Absolute Neuts (auto) Absolute Nucleated RBC Nucleated RBC % (auto) PT INR Anion Gap 15 Estim Creat Clear Calc 82.6 Estimated GFR > 60 POC Glucose Random Glucose 129 H Lactic Acid Lactic Acid F/U @ 2Hr Calcium 9.0 D Magnesium 2.2 Total Bilirubin 0.3 AST 19 ALT 17 Alkaline Phosphatase 68 Troponin I High Sens 5.5 Total Protein 6.4 L Albumin 3.8 Procalcitonin Influenza Type A (PCR) POSITIVE A Influenza Type B (PCR) NEGATIVE RSV RNA Qual (PCR) NEGATIVE SARS-CoV-2 RNA (RT-PCR) NEGATIVE 11/08/22 11/08/22 11/08/22 16:14 16:15 16:16 MCV 86.7 MCH 28.8 MCHC 33.2 RDW 13.6 Plt Count 304 MPV 9.8 Immature Gran % (Auto) 0.4 Neut % (Auto) 45.1 Lymph % (Auto) 46.0 H [place] % (Auto) 7.6 Eos % (Auto) 0.7 Baso % (Auto) 0.2 Lymph # (Auto) 4.5 [place] # (Auto) 0.7 Eos # (Auto) 0.1 Baso # (Auto) 0.0 Abs Immat Gran (auto) 0.04 H Absolute Neuts (auto) 4.4 Absolute Nucleated RBC 0.000 Nucleated RBC % (auto) 0.0 PT 12.9 INR 1.1 Anion Gap Estim Creat Clear Calc Estimated GFR POC Glucose Random Glucose Lactic Acid Lactic Acid F/U @ 2Hr Calcium Magnesium Total Bilirubin AST ALT Alkaline Phosphatase Troponin I High Sens Total Protein Albumin Procalcitonin 0.06 Influenza Type A (PCR) Influenza Type B (PCR) RSV RNA Qual (PCR) SARS-CoV-2 RNA (RT-PCR) 11/08/22 11/08/22 11/09/22 16:18 19:30 07:21 MCV MCH MCHC RDW Plt Count MPV Immature Gran % (Auto) Neut % (Auto) Lymph % (Auto) [place] % (Auto) Eos % (Auto) Baso % (Auto) Lymph # (Auto) [place] # (Auto) Eos # (Auto) Baso # (Auto) Abs Immat Gran (auto) Absolute Neuts (auto) Absolute Nucleated RBC Nucleated RBC % (auto) PT INR Anion Gap Estim Creat Clear Calc Estimated GFR POC Glucose 232 H Random Glucose Lactic Acid 4.5 H* Lactic Acid F/U @ 2Hr 1.2 Calcium Magnesium Total Bilirubin AST ALT Alkaline Phosphatase Troponin I High Sens Total Protein Albumin Procalcitonin Influenza Type A (PCR) Influenza Type B (PCR) RSV RNA Qual (PCR) SARS-CoV-2 RNA (RT-PCR) Assessment and Plan (1) Influenza A: Status: Acute (2) Asthma exacerbation: Status: Acute Plan hospital d#2 62yo F with HTN, HLD, CAD s/p PCI, DM2, PAD, ashtma, COPD, steroid-dependent rheumatoid arthritis, fibromyalgia, and bipolar depression presenting with 5 days of flu-like symptoms and found to have influenza A with acute asthma/COPD exacerbation. # acute asthma/COPD exacerbation - IV methylprednisolone d#2, standing/prn nebs # influenza A - oseltamivir d#2/5 # viral sepsis - due to influenza; no evidence of bacterial superinfection; PCT low # lactic acidosis - more likely bronchodilator effect than tissue hypoperfusion; resolved # migraine ZHENG - sumatriptan # CAD # PAD - statin, ticagrelor # HTN - losartan # DM2 - basal/bolus insulin # RA - on baseline prednisone; continue sulfasalazine # FM - pregabalin # bipolar disorder - lamotrigine # VTE ppx: LMWH # dispo: eventual home, anticipate in next 1-2d Time Spent With Patient Time: Total time managing care of this patient today __27__ minutes. Quality Stroke Does the patient have a stroke diagnosis?: No VTE Prior VTE?: No VTE Risk Level:: Medical - moderate - high VTE Device Contraindication: N/A - Device Ordered VTE Drug Contraindication: N/A - Med Ordered
[2022-11-09] MEDS: guaiFENesin DM 100/10/5 ML 5 ML SYRUP PO (11:00)
[2022-11-09] MEDS: methylPREDNISolone Sod Succ 125 MG/2 ML VIAL IVPUSH (11:24)
[2022-11-09] MEDS: Butalb/Acetamin/Caff 50/325/40 TABLET 1 TAB PO ×2 (12:55→20:56)
[2022-11-09] MEDS: Enoxaparin Sodium 40 MG/0.4 ML SYRINGE SUBCUT (17:58)
[2022-11-09] MEDS: Omeprazole 20 MG CAPSULE.DR PO (17:58)
[2022-11-09 20:36] LABS: Appearance Urine Clear; Color Urine Yellow; Glucose Urine UA 500 mg/dL (Negative); Leukocyte Esterase Urine Negative (Negative); Nitrite Urine Negative (Negative); PH 7.5 (5.0-9.0); Urine Blood Negative (Negative); Urine Ketones Negative (Negative); Urine Protein Negative (Neg-Trace)
[2022-11-09] MEDS: Insulin Glargine,Hum.rec.anlog 100 UNIT/ML 10 ML VIAL 20 UNIT SUBCUT (20:52)
[2022-11-09] MEDS: Famotidine 20 MG TABLET PO (20:56)
[2022-11-09] MEDS: Pregabalin 200 MG CAPSULE PO (20:56)
[2022-11-09] MEDS: Letrozole 2.5 MG TABLET PO (20:57)
[2022-11-09] MEDS: traZODone HCL 100 MG TABLET PO (20:57)
[2022-11-10] VITALS (8 sets, daily range): BP systolic 128–143; BP diastolic 68–85; PULSE 77–109; RESP 17–22; TEMP 36–37.1; O2SAT 91–95
[2022-11-10] MEDS: Oseltamivir Phosphate 75 MG CAPSULE PO ×2 (05:35→17:44)
[2022-11-10] MEDS: Omeprazole 20 MG CAPSULE.DR PO ×2 (05:35→16:45)
[2022-11-10] MEDS: Morphine Sulfate Immed Release 15 MG TABLET PO (07:45)
[2022-11-10] MEDS: Insulin Lispro 100 UNIT/ML 3 ML VIAL SUBCUT ×3 (08:08→20:13)
[2022-11-10] MEDS: Metoprolol Tartrate 12.5 MG HALFTAB PO ×2 (08:08→20:12)
[2022-11-10] MEDS: methylPREDNISolone Sod Succ 40 MG/ML VIAL IVPUSH ×2 (08:08→20:13)
[2022-11-10] MEDS: Losartan Potassium 25 MG TABLET PO (08:09)
[2022-11-10] MEDS: sulfaSALAzine 500 MG TABLET PO ×2 (08:09→20:12)
[2022-11-10] MEDS: predniSONE 5 MG TABLET PO (08:09)
[2022-11-10] MEDS: Atorvastatin Calcium 80 MG TABLET PO (08:09)
[2022-11-10] MEDS: Ticagrelor 90 MG TABLET PO ×2 (08:09→20:12)
[2022-11-10] MEDS: Aspirin Enteric Coated 81 MG TABLET.DR PO (08:09)
[2022-11-10] MEDS: lamoTRIgine 25 MG TABLET PO ×2 (08:09→20:12)
[2022-11-10] MEDS: 0.9 % Sodium Chloride Flush 3 ML SYRINGE IVFLUSH ×3 (08:10→20:14)
[2022-11-10] MEDS: Albuterol/Iprat 2.5/0.5MG 3 ML AMPUL.NEB INHALE ×4 (08:39→20:02)
--- NOTE | 2022-11-10 09:58 | HO.PM.IMPN ---
Subjective Subjective Date of Service: 11/10/22 Interval History: migraine resolved constipated still very short of breath- could barely walk to bathroom. extensive wheezing. Review of Systems Review of Systems: Yes all other systems are reviewed and are negative Physical Exam Vital Signs: Vital Signs: Last Vital Signs Temp 96.8 F 11/10/22 07:35 Pulse 100 11/10/22 08:41 Resp 18 11/10/22 08:41 BP 143/78 H 11/10/22 07:35 Pulse Ox 94 11/10/22 07:35 O2 Del Method 11/10/22 07:35 BMI result Body Mass Index 26.3 Gen: mod resp distress HEENT: sclera anicteric, moist mucus membranes Neck: supple Lungs: tachypneic, extensive expiratory wheezing Heart: regular, tachycardic, no murmurs Abd: soft, non-tender, non-distended Ext: no edema Skin: warm/well-perfused Neuro: alert and oriented x3, no focal findings Psych: appropriate affect Objective Data Active Medications Acetaminophen (Acetaminophen 325 Mg Tablet) 650 mg PO Q6H PRN PRN Reason: Pain, Mild (Pain Scale 1-3) Last Admin: 11/09/22 03:31 Dose: 650 mg Documented By: JOSE CARLOS Acetaminophen/Butalbital/Caffeine (Butalb/Acetamin/Caff 50/325/40 Tablet) 1 tab PO Q6H PRN PRN Reason: migraine Last Admin: 11/09/22 20:56 Dose: 1 tab Documented By: MT Albuterol Sulfate (Albuterol Sulfate (0.083%) 2.5 Mg/3 Ml Vial.Neb) 2.5 mg INHALE Q2H PRN PRN Reason: Shortness of Breath/Wheezing Last Admin: 11/09/22 02:57 Dose: 2.5 mg Documented By: DEE Albuterol/Ipratropium (Albuterol/Iprat 2.5/0.5mg 3 Ml Ampul.Neb) 3 ml INHALE RQ4H WHILE AWAKE [facility] Last Admin: 11/10/22 08:39 Dose: 3 ml Documented By: JESUS Aspirin (Aspirin Enteric Coated 81 Mg Tablet.) 81 mg PO DAILY [facility] Last Admin: 11/10/22 08:09 Dose: 81 mg Documented By: FRANCINE Atorvastatin Calcium (Atorvastatin Calcium 80 Mg Tablet) 80 mg PO DAILY [facility] Last Admin: 11/10/22 08:09 Dose: 80 mg Documented By: FRANCINE Azithromycin (Azithromycin 250 Mg Tablet) 250 mg PO MOWEFR@0900 [facility] Last Admin: 11/09/22 09:45 Dose: 250 mg Documented By: KEVIN Dextrose (Dextrose 50 % 25 Gm/50 Ml Syringe) 25 gm IVPUSH Q15M PRN; Protocol PRN Reason: per Hypoglycemia Standing Ord. Dicyclomine HCl (Dicyclomine Hcl 10 Mg Capsule) 10 mg PO TID PRN PRN Reason: for abdominal pain Enoxaparin Sodium (Enoxaparin Sodium 40 Mg/0.4 Ml Syringe) 40 mg SUBCUT Q24H [facility] Last Admin: 11/09/22 17:58 Dose: 40 mg Documented By: KEVIN Famotidine (Famotidine 20 Mg Tablet) 20 mg PO BEDTIME [facility] Last Admin: 11/09/22 20:56 Dose: 20 mg Documented By: MT Glucose (Glucose Gel 15 Gm Gel..Gram.) 15 gm PO Q15M PRN; Protocol PRN Reason: per Hypoglycemia Standing Ord. Guaifenesin/Dextromethorphan (Guaifenesin Dm 100/10/5 Ml 5 Ml Syrup) 5 ml PO Q4H PRN PRN Reason: cough/ Last Admin: 11/09/22 11:00 Dose: 5 ml Documented By: KEVIN Insulin Glargine (Insulin Glargine,Hum.Rec.Anlog 100 Unit/Ml 10 Ml Vial) 20 unit SUBCUT BEDTIME [facility] Last Admin: 11/09/22 20:52 Dose: 20 unit Documented By: MT Insulin Human Lispro (Insulin Lispro 100 Unit/Ml 3 Ml Vial) 0 unit SUBCUT QIDACHS [facility]; Protocol Last Admin: 11/10/22 08:08 Dose: 4 unit Documented By: FRANCINE Lamotrigine (Lamotrigine 25 Mg Tablet) 25 mg PO BID [facility] Last Admin: 11/10/22 08:09 Dose: 25 mg Documented By: FRANCINE Letrozole (Letrozole 2.5 Mg Tablet) 2.5 mg PO BEDTIME [facility] Last Admin: 11/09/22 20:57 Dose: 2.5 mg Documented By: MT Losartan Potassium (Losartan Potassium 25 Mg Tablet) 25 mg PO DAILY [facility]; Protocol Last Admin: 11/10/22 08:09 Dose: 25 mg Documented By: FRANCINE Methylprednisolone Sodium Succinate (Methylprednisolone Sod Succ 40 Mg/Ml Vial) 40 mg IVPUSH Q12H [facility] Last Admin: 11/10/22 08:08 Dose: 40 mg Documented By: FRANCINE Metoprolol Tartrate (Metoprolol Tartrate 12.5 Mg Halftab) 12.5 mg PO BID [facility]; Protocol Last Admin: 11/10/22 08:08 Dose: 12.5 mg Documented By: FRANCINE Morphine Sulfate (Morphine Sulfate Immed Release 15 Mg Tablet) 15 mg PO BID PRN PRN Reason: pain severe Last Admin: 11/10/22 07:45 Dose: 15 mg Documented By: FRANCINE Nitroglycerin (Nitroglycerin 0.4 Mg Tab.Subl) 0.4 mg SUBLINGUAL Q5M PRN PRN Reason: Chest Pain Non-Formulary Medication (Lubiprostone [Amitiza]) 8 mcg PO BID [facility] Omeprazole (Omeprazole 20 Mg Capsule.Dr) 20 mg PO BID@0630,1630 [facility] Last Admin: 11/10/22 05:35 Dose: 20 mg Documented By: MT Ondansetron HCl (Ondansetron Hcl 4 Mg/2 Ml Vial) 4 mg IVPUSH Q8H PRN PRN Reason: Nausea and Vomiting Oseltamivir Phosphate (Oseltamivir Phosphate 75 Mg Capsule) 75 mg PO Q12H [facility] Stop: 11/12/22 18:31 Last Admin: 11/10/22 05:35 Dose: 75 mg Documented By: MT Prednisone (Prednisone 5 Mg Tablet) 5 mg PO DAILY [facility] Last Admin: 11/10/22 08:09 Dose: 5 mg Documented By: FRANCINE Pregabalin (Pregabalin 200 Mg Capsule) 200 mg PO BEDTIME [facility] Last Admin: 11/09/22 20:56 Dose: 200 mg Documented By: MT Pregabalin (Pregabalin 150 Mg Capsule) 150 mg PO DAILY [facility] Last Admin: 11/09/22 10:00 Dose: 150 mg Documented By: KEVIN Sodium Chloride (0.9 % Sodium Chloride Flush 3 Ml Syringe) 3 ml IVFLUSH QSHIFT [facility] Last Admin: 11/10/22 08:10 Dose: 3 ml Documented By: FRANCINE Sulfasalazine (Sulfasalazine 500 Mg Tablet) 500 mg PO BID [facility] Last Admin: 11/10/22 08:09 Dose: 500 mg Documented By: FRANCINE Sumatriptan Succinate (Sumatriptan Succinate 50 Mg Tablet) 50 mg PO DAILY MRX1 PRN PRN Reason: migraine zheng Last Admin: 11/09/22 09:44 Dose: 50 mg Documented By: KEVIN Ticagrelor (Ticagrelor 90 Mg Tablet) 90 mg PO BID [facility] Last Admin: 11/10/22 08:09 Dose: 90 mg Documented By: FRANCINE Trazodone HCl (Trazodone Hcl 100 Mg Tablet) 100 mg PO BEDTIME [facility] Last Admin: 11/09/22 20:57 Dose: 100 mg Documented By: [facility] Labs CBC & Chem 7: 11/08/22 16:16 11/08/22 16:14 Labs: Laboratory Results - last 24 hr 11/09/22 11/09/22 11/09/22 11:28 15:44 18:25 POC Glucose 181 H 240 H Urine Color Yellow Urine Appearance Clear Urine pH 7.5 Ur Specific [place] 1.010 Urine Protein Negative Urine Glucose (UA) 500 H Urine Ketones Negative Urine Blood Negative Urine Nitrite Negative Ur Leukocyte Esterase Negative 11/09/22 11/10/22 19:41 07:34 POC Glucose 359 H* 214 H Urine Color Urine Appearance Urine pH Ur Specific [place] Urine Protein Urine Glucose (UA) Urine Ketones Urine Blood Urine Nitrite Ur Leukocyte Esterase Microbiology Microbiology Results: Microbiology 11/08/22 16:16 Blood Culture - Preliminary Blood - Venous No growth after 24 hours. 11/08/22 16:16 Blood Culture - Preliminary Blood - Venous No growth after 24 hours. Assessment and Plan (1) Influenza A: Status: Acute (2) Asthma exacerbation: Status: Acute Plan hospital d#3 62yo F with HTN, HLD, CAD s/p PCI, DM2, PAD, ashtma, COPD, steroid-dependent rheumatoid arthritis, fibromyalgia, and bipolar depression presenting with 5 days of flu-like symptoms and found to have influenza A with acute asthma/COPD exacerbation. # acute asthma/COPD exacerbation - IV methylprednisolone d#3, standing/prn nebs # influenza A - oseltamivir d#3/5 # viral sepsis - due to influenza; no evidence of bacterial superinfection; PCT low # lactic acidosis - more likely bronchodilator effect than tissue hypoperfusion; resolved # constipation - bowel regimen # migraine ZHENG - prn Fioricet # CAD # PAD - statin, ticagrelor # HTN - losartan # DM2 - basal/bolus insulin # RA - on baseline prednisone; continue sulfasalazine # FM - pregabalin # bipolar disorder - lamotrigine # VTE ppx: LMWH # dispo: eventual home, anticipate in next 1-2d In my clinical judgment, the patient requires continued inpatient hospitalization for the following reasons: resp distress Time Spent With Patient Time: Total time managing care of this patient today ____ minutes. Quality Stroke Does the patient have a stroke diagnosis?: No VTE Prior VTE?: No VTE Risk Level:: Medical - moderate - high VTE Device Contraindication: N/A - Device Ordered VTE Drug Contraindication: N/A - Med Ordered
[2022-11-10] MEDS: Pregabalin 150 MG CAPSULE PO (10:26)
[2022-11-10] MEDS: Sennosides/Docusate Sodium TABLET 2 TAB PO ×2 (10:26→20:12)
[2022-11-10] MEDS: polyethylene glycoL 3350 17 GM POWD.PACK PO (10:26)
[2022-11-10] MEDS: Butalb/Acetamin/Caff 50/325/40 TABLET 1 TAB PO (15:56)
[2022-11-10] MEDS: Enoxaparin Sodium 40 MG/0.4 ML SYRINGE SUBCUT (17:44)
[2022-11-10] MEDS: Pregabalin 200 MG CAPSULE PO (20:12)
[2022-11-10] MEDS: traZODone HCL 100 MG TABLET PO (20:12)
[2022-11-10] MEDS: Letrozole 2.5 MG TABLET PO (20:12)
[2022-11-10] MEDS: Famotidine 20 MG TABLET PO (20:12)
[2022-11-10] MEDS: Insulin Glargine,Hum.rec.anlog 100 UNIT/ML 10 ML VIAL 20 UNIT SUBCUT (20:13)
[2022-11-11] VITALS (7 sets, daily range): BP systolic 103–125; BP diastolic 60–79; PULSE 74–85; RESP 18–20; TEMP 36.4–37.1; O2SAT 94–95
[2022-11-11] MEDS: Omeprazole 20 MG CAPSULE.DR PO ×2 (05:32→16:38)
[2022-11-11] MEDS: Oseltamivir Phosphate 75 MG CAPSULE PO ×2 (05:32→17:27)
[2022-11-11] MEDS: Albuterol Sulfate (0.083%) 2.5 MG/3 ML VIAL.NEB INHALE (08:29)
[2022-11-11] MEDS: Albuterol/Iprat 2.5/0.5MG 3 ML AMPUL.NEB INHALE ×3 (08:35→20:05)
[2022-11-11] MEDS: sulfaSALAzine 500 MG TABLET PO ×2 (08:47→20:53)
[2022-11-11] MEDS: predniSONE 5 MG TABLET PO (08:47)
[2022-11-11] MEDS: Pregabalin 150 MG CAPSULE PO (08:47)
[2022-11-11] MEDS: Atorvastatin Calcium 80 MG TABLET PO (08:47)
[2022-11-11] MEDS: lamoTRIgine 25 MG TABLET PO ×2 (08:47→20:53)
[2022-11-11] MEDS: Ticagrelor 90 MG TABLET PO ×2 (08:47→21:05)
[2022-11-11] MEDS: Sennosides/Docusate Sodium TABLET 2 TAB PO ×2 (08:48→20:52)
[2022-11-11] MEDS: Metoprolol Tartrate 12.5 MG HALFTAB PO ×2 (08:48→20:53)
[2022-11-11] MEDS: methylPREDNISolone Sod Succ 40 MG/ML VIAL IVPUSH ×2 (08:48→20:52)
[2022-11-11] MEDS: Aspirin Enteric Coated 81 MG TABLET.DR PO (08:48)
[2022-11-11] MEDS: 0.9 % Sodium Chloride Flush 3 ML SYRINGE IVFLUSH ×3 (08:48→20:52)
[2022-11-11] MEDS: polyethylene glycoL 3350 17 GM POWD.PACK PO (08:48)
[2022-11-11] MEDS: Losartan Potassium 25 MG TABLET PO (08:48)
[2022-11-11] MEDS: Morphine Sulfate Immed Release 15 MG TABLET PO (08:50)
--- NOTE | 2022-11-11 11:09 | HO.PM.IMPN ---
Subjective Subjective Date of Service: 11/11/22 Interval History: not hypoxic but very wheezy; lightheaded + dyspneic with walking to bathroom Review of Systems Review of Systems: Yes all other systems are reviewed and are negative Physical Exam Vital Signs: Vital Signs: Last Vital Signs Temp 98.7 F 11/11/22 08:00 Pulse 74 11/11/22 08:30 Resp 18 11/11/22 08:30 BP 125/65 11/11/22 08:00 Pulse Ox 94 11/11/22 08:00 O2 Del Method 11/11/22 08:00 BMI result Body Mass Index 26.3 Gen: mild resp distress HEENT: sclera anicteric, moist mucus membranes Neck: supple Lungs: extensive expiratory wheezing Heart: regular, tachycardic, no murmurs Abd: soft, non-tender, non-distended Ext: no edema Skin: warm/well-perfused Neuro: alert and oriented x3, no focal findings Psych: appropriate affect Objective Data Active Medications Acetaminophen (Acetaminophen 325 Mg Tablet) 650 mg PO Q6H PRN PRN Reason: Pain, Mild (Pain Scale 1-3) Last Admin: 11/09/22 03:31 Dose: 650 mg Documented By: JOSE CARLOS Acetaminophen/Butalbital/Caffeine (Butalb/Acetamin/Caff 50/325/40 Tablet) 1 tab PO Q6H PRN PRN Reason: migraine Last Admin: 11/10/22 15:56 Dose: 1 tab Documented By: FRANCINE Albuterol Sulfate (Albuterol Sulfate (0.083%) 2.5 Mg/3 Ml Vial.Neb) 2.5 mg INHALE Q2H PRN PRN Reason: Shortness of Breath/Wheezing Last Admin: 11/11/22 08:29 Dose: 2.5 mg Documented By: JESUS Albuterol/Ipratropium (Albuterol/Iprat 2.5/0.5mg 3 Ml Ampul.Neb) 3 ml INHALE RQ4H WHILE AWAKE [facility] Last Admin: 11/11/22 08:35 Dose: 3 ml Documented By: JESUS Aspirin (Aspirin Enteric Coated 81 Mg Tablet.) 81 mg PO DAILY [facility] Last Admin: 11/11/22 08:48 Dose: 81 mg Documented By: SYLVIA Atorvastatin Calcium (Atorvastatin Calcium 80 Mg Tablet) 80 mg PO DAILY [facility] Last Admin: 11/11/22 08:47 Dose: 80 mg Documented By: SYLVIA Azithromycin (Azithromycin 250 Mg Tablet) 250 mg PO MOWEFR@0900 [facility] Last Admin: 11/09/22 09:45 Dose: 250 mg Documented By: KEVIN Dextrose (Dextrose 50 % 25 Gm/50 Ml Syringe) 25 gm IVPUSH Q15M PRN; Protocol PRN Reason: per Hypoglycemia Standing Ord. Dicyclomine HCl (Dicyclomine Hcl 10 Mg Capsule) 10 mg PO TID PRN PRN Reason: for abdominal pain Enoxaparin Sodium (Enoxaparin Sodium 40 Mg/0.4 Ml Syringe) 40 mg SUBCUT Q24H [facility] Last Admin: 11/10/22 17:44 Dose: 40 mg Documented By: FRANCINE Famotidine (Famotidine 20 Mg Tablet) 20 mg PO BEDTIME [facility] Last Admin: 11/10/22 20:12 Dose: 20 mg Documented By: MED Glucose (Glucose Gel 15 Gm Gel..Gram.) 15 gm PO Q15M PRN; Protocol PRN Reason: per Hypoglycemia Standing Ord. Guaifenesin/Dextromethorphan (Guaifenesin Dm 100/10/5 Ml 5 Ml Syrup) 5 ml PO Q4H PRN PRN Reason: cough/ Last Admin: 11/09/22 11:00 Dose: 5 ml Documented By: KEVIN Insulin Glargine (Insulin Glargine,Hum.Rec.Anlog 100 Unit/Ml 10 Ml Vial) 20 unit SUBCUT BEDTIME [facility] Last Admin: 11/10/22 20:13 Dose: 20 unit Documented By: MED Insulin Human Lispro (Insulin Lispro 100 Unit/Ml 3 Ml Vial) 0 unit SUBCUT QIDACHS [facility]; Protocol Last Admin: 11/11/22 07:59 Dose: Not Given Documented By: SYLVIA Non-Admin Reason: No Insulin Coverage Lamotrigine (Lamotrigine 25 Mg Tablet) 25 mg PO BID [facility] Last Admin: 11/11/22 08:47 Dose: 25 mg Documented By: SYLVIA Letrozole (Letrozole 2.5 Mg Tablet) 2.5 mg PO BEDTIME [facility] Last Admin: 11/10/22 20:12 Dose: 2.5 mg Documented By: MED Losartan Potassium (Losartan Potassium 25 Mg Tablet) 25 mg PO DAILY [facility]; Protocol Last Admin: 11/11/22 08:48 Dose: 25 mg Documented By: SYLVIA Methylprednisolone Sodium Succinate (Methylprednisolone Sod Succ 40 Mg/Ml Vial) 40 mg IVPUSH Q12H [facility] Last Admin: 11/11/22 08:48 Dose: 40 mg Documented By: SYLVIA Metoprolol Tartrate (Metoprolol Tartrate 12.5 Mg Halftab) 12.5 mg PO BID [facility]; Protocol Last Admin: 11/11/22 08:48 Dose: 12.5 mg Documented By: SYLVIA Morphine Sulfate (Morphine Sulfate Immed Release 15 Mg Tablet) 15 mg PO BID PRN PRN Reason: pain severe Last Admin: 11/11/22 08:50 Dose: 15 mg Documented By: SYLVIA Nitroglycerin (Nitroglycerin 0.4 Mg Tab.Subl) 0.4 mg SUBLINGUAL Q5M PRN PRN Reason: Chest Pain Non-Formulary Medication (Lubiprostone [Amitiza]) 8 mcg PO BID [facility] Omeprazole (Omeprazole 20 Mg Capsule.Dr) 20 mg PO BID@0630,1630 [facility] Last Admin: 11/11/22 05:32 Dose: 20 mg Documented By: MED Ondansetron HCl (Ondansetron Hcl 4 Mg/2 Ml Vial) 4 mg IVPUSH Q8H PRN PRN Reason: Nausea and Vomiting Oseltamivir Phosphate (Oseltamivir Phosphate 75 Mg Capsule) 75 mg PO Q12H [facility] Stop: 11/12/22 18:31 Last Admin: 11/11/22 05:32 Dose: 75 mg Documented By: MED Polyethylene Glycol (Polyethylene Glycol 3350 17 Gm Powd.Pack) 17 gm PO DAILY [facility] Last Admin: 11/11/22 08:48 Dose: 17 gm Documented By: SYLVIA Prednisone (Prednisone 5 Mg Tablet) 5 mg PO DAILY [facility] Last Admin: 11/11/22 08:47 Dose: 5 mg Documented By: SYLVIA Pregabalin (Pregabalin 200 Mg Capsule) 200 mg PO BEDTIME [facility] Last Admin: 11/10/22 20:12 Dose: 200 mg Documented By: MED Pregabalin (Pregabalin 150 Mg Capsule) 150 mg PO DAILY [facility] Last Admin: 11/11/22 08:47 Dose: 150 mg Documented By: SYLVIA Senna/Docusate Sodium (Sennosides/Docusate Sodium Tablet) 2 tab PO BID [facility] Last Admin: 11/11/22 08:48 Dose: 2 tab Documented By: SYLVIA Sodium Chloride (0.9 % Sodium Chloride Flush 3 Ml Syringe) 3 ml IVFLUSH QSHIFT [facility] Last Admin: 11/11/22 08:48 Dose: 3 ml Documented By: SYLVIA Sulfasalazine (Sulfasalazine 500 Mg Tablet) 500 mg PO BID [facility] Last Admin: 11/11/22 08:47 Dose: 500 mg Documented By: SYLVIA Sumatriptan Succinate (Sumatriptan Succinate 50 Mg Tablet) 50 mg PO DAILY MRX1 PRN PRN Reason: migraine Last Admin: 11/09/22 09:44 Dose: 50 mg Documented By: KEVIN Ticagrelor (Ticagrelor 90 Mg Tablet) 90 mg PO BID [facility] Last Admin: 11/11/22 08:47 Dose: 90 mg Documented By: SYLVIA Trazodone HCl (Trazodone Hcl 100 Mg Tablet) 100 mg PO BEDTIME [facility] Last Admin: 11/10/22 20:12 Dose: 100 mg Documented By: MED Labs CBC & Chem 7: 11/08/22 16:16 11/08/22 16:14 Labs: Laboratory Results - last 24 hr 11/10/22 11/10/22 11/10/22 11:32 15:51 19:37 POC Glucose 72 241 H 179 H 11/11/22 07:54 POC Glucose 134 H Microbiology Microbiology Results: Microbiology 11/08/22 16:16 Blood Culture - Preliminary Blood - Venous No growth after 48 hours. 11/08/22 16:16 Blood Culture - Preliminary Blood - Venous No growth after 48 hours. Assessment and Plan (1) Influenza A: Status: Acute (2) Asthma exacerbation: Status: Acute Plan hospital d#4 62yo F with HTN, HLD, CAD s/p PCI, DM2, PAD, ashtma, COPD, steroid-dependent rheumatoid arthritis, fibromyalgia, and bipolar depression presenting with 5 days of flu-like symptoms and found to have influenza A with acute asthma/COPD exacerbation. # acute asthma/COPD exacerbation - IV methylprednisolone d#4, standing/prn nebs # influenza A - oseltamivir d#4/5 # viral sepsis - due to influenza; no evidence of bacterial superinfection; PCT low # lactic acidosis - more likely bronchodilator effect than tissue hypoperfusion; resolved # constipation - bowel regimen # migraine ZHENG - prn Fioricet # CAD # PAD - statin, ticagrelor # HTN - losartan # DM2 - basal/bolus insulin # RA - on baseline prednisone; continue sulfasalazine # FM - pregabalin # bipolar disorder - lamotrigine # VTE ppx: LMWH # dispo: PT evaluation In my clinical judgment, the patient requires continued inpatient hospitalization for the following reasons: resp distress Time Spent With Patient Time: Total time managing care of this patient today __26__ minutes. Quality Stroke Does the patient have a stroke diagnosis?: No VTE Prior VTE?: No VTE Risk Level:: Medical - moderate - high VTE Device Contraindication: N/A - Device Ordered VTE Drug Contraindication: N/A - Med Ordered
[2022-11-11] MEDS: Insulin Lispro 100 UNIT/ML 3 ML VIAL SUBCUT ×3 (11:22→20:53)
[2022-11-11] MEDS: Enoxaparin Sodium 40 MG/0.4 ML SYRINGE SUBCUT (17:28)
[2022-11-11] MEDS: Letrozole 2.5 MG TABLET PO (20:52)
[2022-11-11] MEDS: traZODone HCL 100 MG TABLET PO (20:52)
[2022-11-11] MEDS: Pregabalin 200 MG CAPSULE PO (20:53)
[2022-11-11] MEDS: Famotidine 20 MG TABLET PO (20:53)
[2022-11-11] MEDS: Insulin Glargine,Hum.rec.anlog 100 UNIT/ML 10 ML VIAL 20 UNIT SUBCUT (20:54)
[2022-11-12] VITALS (10 sets, daily range): BP systolic 108–117; BP diastolic 51–63; PULSE 75–84; RESP 15–19; TEMP 36.6–37.1; O2SAT 93–96
[2022-11-12] MEDS: Oseltamivir Phosphate 75 MG CAPSULE PO ×2 (05:50→18:05)
[2022-11-12] MEDS: Omeprazole 20 MG CAPSULE.DR PO ×2 (05:51→16:43)
[2022-11-12] MEDS: Albuterol/Iprat 2.5/0.5MG 3 ML AMPUL.NEB INHALE ×4 (08:02→19:55)
[2022-11-12] MEDS: Metoprolol Tartrate 12.5 MG HALFTAB PO ×2 (08:45→20:04)
[2022-11-12] MEDS: methylPREDNISolone Sod Succ 40 MG/ML VIAL IVPUSH ×2 (08:45→20:04)
[2022-11-12] MEDS: Azithromycin 250 MG TABLET PO (08:45)
[2022-11-12] MEDS: predniSONE 5 MG TABLET PO (08:45)
[2022-11-12] MEDS: Sennosides/Docusate Sodium TABLET 2 TAB PO ×2 (08:46→20:04)
[2022-11-12] MEDS: lamoTRIgine 25 MG TABLET PO ×2 (08:46→20:04)
[2022-11-12] MEDS: Aspirin Enteric Coated 81 MG TABLET.DR PO (08:46)
[2022-11-12] MEDS: Losartan Potassium 25 MG TABLET PO (08:47)
[2022-11-12] MEDS: Ticagrelor 90 MG TABLET PO ×2 (08:47→20:04)
[2022-11-12] MEDS: Pregabalin 150 MG CAPSULE PO (08:47)
[2022-11-12] MEDS: polyethylene glycoL 3350 17 GM POWD.PACK PO (08:47)
[2022-11-12] MEDS: Atorvastatin Calcium 80 MG TABLET PO (08:47)
[2022-11-12] MEDS: sulfaSALAzine 500 MG TABLET PO ×2 (08:47→20:04)
[2022-11-12] MEDS: Butalb/Acetamin/Caff 50/325/40 TABLET 1 TAB PO ×2 (08:48→20:08)
[2022-11-12] MEDS: 0.9 % Sodium Chloride Flush 3 ML SYRINGE IVFLUSH ×3 (08:49→20:11)
--- NOTE | 2022-11-12 09:50 | HO.PM.IMPN ---
Subjective Subjective Date of Service: 11/12/22 Interval History: worsening dyspnea + wheezing + cough no fever c/o migraine Review of Systems Review of Systems: Yes all other systems are reviewed and are negative Physical Exam Vital Signs: Vital Signs: Last Vital Signs Temp 97.9 F 11/12/22 07:39 Pulse 80 11/12/22 08:02 Resp 16 11/12/22 08:02 BP 114/63 11/12/22 07:39 Pulse Ox 94 11/12/22 07:39 O2 Del Method 11/12/22 07:39 BMI result Body Mass Index 26.3 Gen: mild resp distress HEENT: sclera anicteric, moist mucus membranes Neck: supple Lungs: extensive inspiratory + expiratory wheezing, prolonged expiratory phase Heart: regular rate and rhythm, no murmurs Abd: soft, non-tender, non-distended Ext: no edema Skin: warm/well-perfused Neuro: alert and oriented x3, no focal findings Psych: appropriate affect Objective Data Active Medications Acetaminophen (Acetaminophen 325 Mg Tablet) 650 mg PO Q6H PRN PRN Reason: Pain, Mild (Pain Scale 1-3) Last Admin: 11/09/22 03:31 Dose: 650 mg Documented By: JOSE CARLOS Acetaminophen/Butalbital/Caffeine (Butalb/Acetamin/Caff 50/325/40 Tablet) 1 tab PO Q6H PRN PRN Reason: migraine Last Admin: 11/12/22 08:48 Dose: 1 tab Documented By: LONNIE Albuterol Sulfate (Albuterol Sulfate (0.083%) 2.5 Mg/3 Ml Vial.Neb) 2.5 mg INHALE Q2H PRN PRN Reason: Shortness of Breath/Wheezing Last Admin: 11/11/22 08:29 Dose: 2.5 mg Documented By: JESUS Albuterol/Ipratropium (Albuterol/Iprat 2.5/0.5mg 3 Ml Ampul.Neb) 3 ml INHALE RQ4H WHILE AWAKE [facility] Last Admin: 11/12/22 08:02 Dose: 3 ml Documented By: PIOTR Aspirin (Aspirin Enteric Coated 81 Mg Tablet.) 81 mg PO DAILY [facility] Last Admin: 11/12/22 08:46 Dose: 81 mg Documented By: LONNIE Atorvastatin Calcium (Atorvastatin Calcium 80 Mg Tablet) 80 mg PO DAILY [facility] Last Admin: 11/12/22 08:47 Dose: 80 mg Documented By: LONNIE Azithromycin (Azithromycin 250 Mg Tablet) 250 mg PO MOWEFR@0900 [facility] Last Admin: 11/12/22 08:45 Dose: 250 mg Documented By: LONNIE Albuterol Sulfate 5 mg/ (Albuterol/Ipratropium 3 ml) 0 mg INHALE ONCE ONE Stop: 11/12/22 09:49 Dextrose (Dextrose 50 % 25 Gm/50 Ml Syringe) 25 gm IVPUSH Q15M PRN; Protocol PRN Reason: per Hypoglycemia Standing Ord. Dicyclomine HCl (Dicyclomine Hcl 10 Mg Capsule) 10 mg PO TID PRN PRN Reason: for abdominal pain Enoxaparin Sodium (Enoxaparin Sodium 40 Mg/0.4 Ml Syringe) 40 mg SUBCUT Q24H [facility] Last Admin: 11/11/22 17:28 Dose: 40 mg Documented By: SYLVIA Famotidine (Famotidine 20 Mg Tablet) 20 mg PO BEDTIME [facility] Last Admin: 11/11/22 20:53 Dose: 20 mg Documented By: VEE Glucose (Glucose Gel 15 Gm Gel..Gram.) 15 gm PO Q15M PRN; Protocol PRN Reason: per Hypoglycemia Standing Ord. Guaifenesin/Dextromethorphan (Guaifenesin Dm 100/10/5 Ml 5 Ml Syrup) 5 ml PO Q4H PRN PRN Reason: cough/ Last Admin: 11/09/22 11:00 Dose: 5 ml Documented By: KEVIN Insulin Glargine (Insulin Glargine,Hum.Rec.Anlog 100 Unit/Ml 10 Ml Vial) 20 unit SUBCUT BEDTIME [facility] Last Admin: 11/11/22 20:54 Dose: 20 unit Documented By: VEE Insulin Human Lispro (Insulin Lispro 100 Unit/Ml 3 Ml Vial) 0 unit SUBCUT QIDACHS [facility]; Protocol Last Admin: 11/12/22 07:31 Dose: Not Given Documented By: LONNIE Non-Admin Reason: No Insulin Coverage Lamotrigine (Lamotrigine 25 Mg Tablet) 25 mg PO BID [facility] Last Admin: 11/12/22 08:46 Dose: 25 mg Documented By: LONNIE Letrozole (Letrozole 2.5 Mg Tablet) 2.5 mg PO BEDTIME [facility] Last Admin: 11/11/22 20:52 Dose: 2.5 mg Documented By: VEE Losartan Potassium (Losartan Potassium 25 Mg Tablet) 25 mg PO DAILY [facility]; Protocol Last Admin: 11/12/22 08:47 Dose: 25 mg Documented By: LONNIE Methylprednisolone Sodium Succinate (Methylprednisolone Sod Succ 40 Mg/Ml Vial) 40 mg IVPUSH Q12H [facility] Last Admin: 11/12/22 08:45 Dose: 40 mg Documented By: LONNIE Metoprolol Tartrate (Metoprolol Tartrate 12.5 Mg Halftab) 12.5 mg PO BID [facility]; Protocol Last Admin: 11/12/22 08:45 Dose: 12.5 mg Documented By: LONNIE Morphine Sulfate (Morphine Sulfate Immed Release 15 Mg Tablet) 15 mg PO BID PRN PRN Reason: pain severe Last Admin: 11/11/22 08:50 Dose: 15 mg Documented By: SYLVIA Nitroglycerin (Nitroglycerin 0.4 Mg Tab.Subl) 0.4 mg SUBLINGUAL Q5M PRN PRN Reason: Chest Pain Non-Formulary Medication (Lubiprostone [Amitiza]) 8 mcg PO BID [facility] Omeprazole (Omeprazole 20 Mg Capsule.Dr) 20 mg PO BID@0630,1630 [facility] Last Admin: 11/12/22 05:51 Dose: 20 mg Documented By: VEE Ondansetron HCl (Ondansetron Hcl 4 Mg/2 Ml Vial) 4 mg IVPUSH Q8H PRN PRN Reason: Nausea and Vomiting Oseltamivir Phosphate (Oseltamivir Phosphate 75 Mg Capsule) 75 mg PO Q12H [facility] Stop: 11/12/22 18:31 Last Admin: 11/12/22 05:50 Dose: 75 mg Documented By: VEE Polyethylene Glycol (Polyethylene Glycol 3350 17 Gm Powd.Pack) 17 gm PO DAILY [facility] Last Admin: 11/12/22 08:47 Dose: 17 gm Documented By: LONNIE Prednisone (Prednisone 5 Mg Tablet) 5 mg PO DAILY [facility] Last Admin: 11/12/22 08:45 Dose: 5 mg Documented By: LONNIE Pregabalin (Pregabalin 200 Mg Capsule) 200 mg PO BEDTIME [facility] Last Admin: 11/11/22 20:53 Dose: 200 mg Documented By: VEE Pregabalin (Pregabalin 150 Mg Capsule) 150 mg PO DAILY [facility] Last Admin: 11/12/22 08:47 Dose: 150 mg Documented By: LONNIE Senna/Docusate Sodium (Sennosides/Docusate Sodium Tablet) 2 tab PO BID [facility] Last Admin: 11/12/22 08:46 Dose: 2 tab Documented By: LONNIE Sodium Chloride (0.9 % Sodium Chloride Flush 3 Ml Syringe) 3 ml IVFLUSH QSHIFT [facility] Last Admin: 11/12/22 08:49 Dose: 3 ml Documented By: LONNIE Sulfasalazine (Sulfasalazine 500 Mg Tablet) 500 mg PO BID [facility] Last Admin: 11/12/22 08:47 Dose: 500 mg Documented By: LONNIE Sumatriptan Succinate (Sumatriptan Succinate 50 Mg Tablet) 50 mg PO DAILY MRX1 PRN PRN Reason: migraine Last Admin: 11/09/22 09:44 Dose: 50 mg Documented By: KEVIN Ticagrelor (Ticagrelor 90 Mg Tablet) 90 mg PO BID [facility] Last Admin: 11/12/22 08:47 Dose: 90 mg Documented By: LONNIE Trazodone HCl (Trazodone Hcl 100 Mg Tablet) 100 mg PO BEDTIME [facility] Last Admin: 11/11/22 20:52 Dose: 100 mg Documented By: VEE Labs CBC & Chem 7: 11/08/22 16:16 11/08/22 16:14 Labs: Laboratory Results - last 24 hr 11/11/22 11/11/22 11/11/22 11:10 16:17 20:42 POC Glucose 205 H 227 H 195 H 11/12/22 07:18 POC Glucose 133 H Assessment and Plan (1) Influenza A: Status: Acute (2) Asthma exacerbation: Status: Acute Plan hospital d#5 62yo F with HTN, HLD, CAD s/p PCI, DM2, PAD, ashtma, COPD, steroid-dependent rheumatoid arthritis, fibromyalgia, and bipolar depression presenting with 5 days of flu-like symptoms and found to have influenza A with acute asthma/COPD exacerbation. # acute asthma/COPD exacerbation - IV methylprednisolone d#5, standing/prn nebs - CBCd, PCT, and CXR to assess for post-influenza PNA # influenza A - oseltamivir d#03/22 # viral sepsis - due to influenza; no evidence of bacterial superinfection; PCT low on admission # lactic acidosis - more likely bronchodilator effect than tissue hypoperfusion; resolved # constipation - bowel regimen # migraine ZHENG - prn Fioricet # CAD # PAD - statin, ticagrelor # HTN - losartan # DM2 - basal/bolus insulin # RA - on baseline prednisone; continue sulfasalazine # FM - pregabalin # bipolar disorder - lamotrigine # VTE ppx: LMWH # dispo: PT evaluation pending In my clinical judgment, the patient requires continued inpatient hospitalization for the following reasons: resp distress Time Spent With Patient Time: Total time managing care of this patient today ____ minutes. Quality Stroke Does the patient have a stroke diagnosis?: No VTE Prior VTE?: No VTE Risk Level:: Medical - moderate - high VTE Device Contraindication: N/A - Device Ordered VTE Drug Contraindication: N/A - Med Ordered
[2022-11-12] MEDS: ondansetron HCL 4 MG/2 ML VIAL IVPUSH (11:04)
[2022-11-12] MEDS: Morphine Sulfate Immed Release 15 MG TABLET PO (11:04)
[2022-11-12] MEDS: guaiFENesin LA 600 MG TAB.ER.12H PO ×2 (11:04→20:04)
[2022-11-12 11:05] LABS: Hemoglobin 12.1 g/dl (12.0-16.0); Mean Corpuscular HGB Conc 32.7 g/dl (31.0-35.0); Mean Corpuscular Hemoglobin 29.1 pg (27.0-33.0); Mean Corpuscular Volume 88.9 fL (80.0-98.0); Mean Platelet Volume 10.2 fL (9.4-12.3); Platelet Count 321 X10*3/uL (160-400); Red Blood Count 4.16 X10*6/uL (4.20-5.50); Red Cell Distribution Width 14.2 % (11.0-16.0); White Blood Count 9.7 X10*3/uL (4.8-10.8)
[2022-11-12 11:45] LABS: Procalcitonin 0.03 ng/mL
--- NOTE | 2022-11-12 12:51 | MHC.CM.PN ---
Addendum entered by Tia Jones RN 11/12/22 12:52: P.T. JOSE RECOMMENDS STR. T/W TO DISCUSS WITH PATIENT Original Note: PLAN IS DC SATURDAY. UNCLEAR IF PATIENT WILL NEED VNA
--- NOTE | 2022-11-12 15:00 | MHC.CM.PN ---
PATIENT AGREEABLE TO STR REFERRALS [place]. [facility] 11/12 DISCUSSED, SIGNED, AND COPY IN CHART. CASE MANAGEMENT TO HAVE PATIENT DECIDE CHOICE OF FACILITY ONCE ACCEPTANCES OF BED OFFERS ARE MADE.
[2022-11-12] MEDS: Insulin Lispro 100 UNIT/ML 3 ML VIAL SUBCUT ×2 (16:42→20:04)
[2022-11-12] MEDS: Enoxaparin Sodium 40 MG/0.4 ML SYRINGE SUBCUT (18:05)
[2022-11-12] MEDS: Letrozole 2.5 MG TABLET PO (20:04)
[2022-11-12] MEDS: Famotidine 20 MG TABLET PO (20:04)
[2022-11-12] MEDS: traZODone HCL 100 MG TABLET PO (20:04)
[2022-11-12] MEDS: Pregabalin 200 MG CAPSULE PO (20:04)
[2022-11-12] MEDS: Insulin Glargine,Hum.rec.anlog 100 UNIT/ML 10 ML VIAL 20 UNIT SUBCUT (20:05)
[2022-11-13] VITALS (9 sets, daily range): BP systolic 113–127; BP diastolic 58–64; PULSE 78–973; RESP 16–74; TEMP 36.2–37; O2SAT 92–99
[2022-11-13] MEDS: Omeprazole 20 MG CAPSULE.DR PO ×2 (06:26→16:26)
[2022-11-13] MEDS: Albuterol/Iprat 2.5/0.5MG 3 ML AMPUL.NEB INHALE ×3 (07:16→20:10)
[2022-11-13] MEDS: polyethylene glycoL 3350 17 GM POWD.PACK PO (07:37)
[2022-11-13] MEDS: Sennosides/Docusate Sodium TABLET 2 TAB PO ×2 (07:37→21:06)
[2022-11-13] MEDS: Pregabalin 150 MG CAPSULE PO (07:37)
[2022-11-13] MEDS: Aspirin Enteric Coated 81 MG TABLET.DR PO (07:37)
[2022-11-13] MEDS: guaiFENesin LA 600 MG TAB.ER.12H PO ×2 (07:37→21:06)
[2022-11-13] MEDS: Ticagrelor 90 MG TABLET PO ×2 (07:37→21:06)
[2022-11-13] MEDS: predniSONE 5 MG TABLET PO (07:38)
[2022-11-13] MEDS: lamoTRIgine 25 MG TABLET PO ×2 (07:38→21:06)
[2022-11-13] MEDS: Insulin Lispro 100 UNIT/ML 3 ML VIAL SUBCUT ×3 (07:38→21:07)
[2022-11-13] MEDS: Atorvastatin Calcium 80 MG TABLET PO (07:38)
[2022-11-13] MEDS: sulfaSALAzine 500 MG TABLET PO ×2 (07:38→21:06)
[2022-11-13] MEDS: Losartan Potassium 25 MG TABLET PO (07:38)
[2022-11-13] MEDS: methylPREDNISolone Sod Succ 40 MG/ML VIAL IVPUSH (07:39)
[2022-11-13] MEDS: Butalb/Acetamin/Caff 50/325/40 TABLET 1 TAB PO (07:41)
[2022-11-13] MEDS: 0.9 % Sodium Chloride Flush 3 ML SYRINGE IVFLUSH ×3 (07:46→22:26)
[2022-11-13] MEDS: Metoprolol Tartrate 12.5 MG HALFTAB PO ×2 (07:50→21:06)
[2022-11-13 08:15] LABS: Glucose, Whole Blood 172 mg/dL (60-115)
[2022-11-13] MEDS: Acetaminophen 325 MG TABLET 650 MG PO (10:42)
[2022-11-13] MEDS: Albuterol Sulfate 5 MG, Albuterol/Iprat 2.5/0.5MG 3 ML 3 ML INHALE (11:03)
[2022-11-13 11:17] LABS: Glucose, Whole Blood 137 mg/dL (60-115)
--- NOTE | 2022-11-13 11:40 | P.PNIM_ITS ---
Subjective Subjective Date of Service: 11/13/22 Interval History: Became acutely short breath approximately 10:00 this morning. Responded to a double neb. Able to speak in short sentences Review of Systems Admits to shortness of breath with minimal exertion Denies chest pain Denies nausea vomiting diarrhea Denies fever chills Physical Exam Vital Signs: Vital Signs: Last Vital Signs Temp 97.1 F 11/13/22 11:25 Pulse 78 11/13/22 11:25 Resp 16 11/13/22 11:25 BP 118/58 L 11/13/22 11:25 Pulse Ox 92 11/13/22 07:11 O2 Del Method 11/13/22 11:25 BMI result Body Mass Index 26.3 Const: Other: Awake alert resting comfortably Resp: Other: Diminished at bases bilaterally with dense expiratory wheezes throughout Cardio: Other: No S4; positive S1-S2; no S3 murmurs rubs or gallops GI: Other: Soft nontender nondistended normoactive bowel sounds Extrem: Other: No edema bilaterally Objective Data Active Medications Acetaminophen (Acetaminophen 325 Mg Tablet) 650 mg PO Q6H PRN PRN Reason: Pain, Mild (Pain Scale 1-3) Last Admin: 11/13/22 10:42 Dose: 650 mg Documented By: FRANCINE Acetaminophen/Butalbital/Caffeine (Butalb/Acetamin/Caff 50/325/40 Tablet) 1 tab PO Q6H PRN PRN Reason: migraine Last Admin: 11/13/22 07:41 Dose: 1 tab Documented By: FRANCINE Albuterol Sulfate (Albuterol Sulfate (0.083%) 2.5 Mg/3 Ml Vial.Felix) 2.5 mg INHALE Q2H PRN PRN Reason: Shortness of Breath/Wheezing Last Admin: 11/11/22 08:29 Dose: 2.5 mg Documented By: JESUS Albuterol/Ipratropium (Albuterol/Iprat 2.5/0.5mg 3 Ml Ampul.Felix) 3 ml INHALE RQ4H WHILE AWAKE [facility] Last Admin: 11/13/22 11:03 Dose: Not Given Documented By: PIOTR Non-Admin Reason: Previously Administered Aspirin (Aspirin Enteric Coated 81 Mg Tablet.) 81 mg PO DAILY [facility] Last Admin: 11/13/22 07:37 Dose: 81 mg Documented By: FRANCINE Atorvastatin Calcium (Atorvastatin Calcium 80 Mg Tablet) 80 mg PO DAILY [facility] Last Admin: 11/13/22 07:38 Dose: 80 mg Documented By: FRANCINE Azithromycin (Azithromycin 250 Mg Tablet) 250 mg PO MOWEFR@0900 [facility] Last Admin: 11/12/22 08:45 Dose: 250 mg Documented By: LONNIE Dextrose (Dextrose 50 % 25 Gm/50 Ml Syringe) 25 gm IVPUSH Q15M PRN; Protocol PRN Reason: per Hypoglycemia Standing Ord. Dicyclomine HCl (Dicyclomine Hcl 10 Mg Capsule) 10 mg PO TID PRN PRN Reason: for abdominal pain Enoxaparin Sodium (Enoxaparin Sodium 40 Mg/0.4 Ml Syringe) 40 mg SUBCUT Q24H [facility] Last Admin: 11/12/22 18:05 Dose: 40 mg Documented By: LONNIE Famotidine (Famotidine 20 Mg Tablet) 20 mg PO BEDTIME [facility] Last Admin: 11/12/22 20:04 Dose: 20 mg Documented By: LUIS MIGUEL Glucose (Glucose Gel 15 Gm Gel..Gram.) 15 gm PO Q15M PRN; Protocol PRN Reason: per Hypoglycemia Standing Ord. Guaifenesin (Guaifenesin La 600 Mg Tab.Er.12h) 600 mg PO BID [facility] Last Admin: 11/13/22 07:37 Dose: 600 mg Documented By: FRANCINE Guaifenesin/Dextromethorphan (Guaifenesin Dm 100/10/5 Ml 5 Ml Syrup) 5 ml PO Q4H PRN PRN Reason: cough/ Last Admin: 11/09/22 11:00 Dose: 5 ml Documented By: KEVIN Insulin Glargine (Insulin Glargine,Hum.Rec.Anlog 100 Unit/Ml 10 Ml Vial) 20 unit SUBCUT BEDTIME [facility] Last Admin: 11/12/22 20:05 Dose: 20 unit Documented By: LUIS MIGUEL Insulin Human Lispro (Insulin Lispro 100 Unit/Ml 3 Ml Vial) 0 unit SUBCUT QIDACHS [facility]; Protocol Last Admin: 11/13/22 07:38 Dose: 2 unit Documented By: FRANCINE Lamotrigine (Lamotrigine 25 Mg Tablet) 25 mg PO BID [facility] Last Admin: 11/13/22 07:38 Dose: 25 mg Documented By: FRANCINE Letrozole (Letrozole 2.5 Mg Tablet) 2.5 mg PO BEDTIME [facility] Last Admin: 11/12/22 20:04 Dose: 2.5 mg Documented By: LUIS MIGUEL Losartan Potassium (Losartan Potassium 25 Mg Tablet) 25 mg PO DAILY [facility]; Protoc ol Last Admin: 11/13/22 07:38 Dose: 25 mg Documented By: FRANCINE Methylprednisolone Sodium Succinate (Methylprednisolone Sod Succ 40 Mg/Ml Vial) 40 mg IVPUSH Q12H [facility] Last Admin: 11/13/22 07:39 Dose: 40 mg Documented By: FRANCINE Metoprolol Tartrate (Metoprolol Tartrate 12.5 Mg Halftab) 12.5 mg PO BID [facility]; Protocol Last Admin: 11/13/22 07:50 Dose: 12.5 mg Documented By: FRANCINE Morphine Sulfate (Morphine Sulfate Immed Release 15 Mg Tablet) 15 mg PO BID PRN PRN Reason: pain severe Last Admin: 11/12/22 11:04 Dose: 15 mg Documented By: LONNIE Nitroglycerin (Nitroglycerin 0.4 Mg Tab.Subl) 0.4 mg SUBLINGUAL Q5M PRN PRN Reason: Chest Pain Non-Formulary Medication (Lubiprostone [Amitiza]) 8 mcg PO BID [facility] Omeprazole (Omeprazole 20 Mg Capsule.) 20 mg PO BID@0630,1630 [facility] Last Admin: 11/13/22 06:26 Dose: 20 mg Documented By: LUIS MIGUEL Ondansetron HCl (Ondansetron Hcl 4 Mg/2 Ml Vial) 4 mg IVPUSH Q8H PRN PRN Reason: Nausea and Vomiting Last Admin: 11/12/22 11:04 Dose: 4 mg Documented By: LONNIE Polyethylene Glycol (Polyethylene Glycol 3350 17 Gm Powd.Pack) 17 gm PO DAILY [facility] Last Admin: 11/13/22 07:37 Dose: 17 gm Documented By: FRANCINE Prednisone (Prednisone 5 Mg Tablet) 5 mg PO DAILY [facility] Last Admin: 11/13/22 07:38 Dose: 5 mg Documented By: FRANCINE Pregabalin (Pregabalin 200 Mg Capsule) 200 mg PO BEDTIME [facility] Last Admin: 11/12/22 20:04 Dose: 200 mg Documented By: LUIS MIGUEL Pregabalin (Pregabalin 150 Mg Capsule) 150 mg PO DAILY [facility] Last Admin: 11/13/22 07:37 Dose: 150 mg Documented By: FRANCINE Senna/Docusate Sodium (Sennosides/Docusate Sodium Tablet) 2 tab PO BID [facility] Last Admin: 11/13/22 07:37 Dose: 2 tab Documented By: FRANCINE Sodium Chloride (0.9 % Sodium Chloride Flush 3 Ml Syringe) 3 ml IVFLUSH QSHIFT [facility] Last Admin: 11/13/22 07:46 Dose: 3 ml Documented By: FRANCINE Sulfasalazine (Sulfasalazine 500 Mg Tablet) 500 mg PO BID [facility] Last Admin: 11/13/22 07:38 Dose: 500 mg Documented By: FRANCINE Sumatriptan Succinate (Sumatriptan Succinate 50 Mg Tablet) 50 mg PO DAILY MRX1 PRN PRN Reason: migraine Last Admin: 11/09/22 09:44 Dose: 50 mg Documented By: KEVIN Ticagrelor (Ticagrelor 90 Mg Tablet) 90 mg PO BID [facility] Last Admin: 11/13/22 07:37 Dose: 90 mg Documented By: FRANCINE Trazodone HCl (Trazodone Hcl 100 Mg Tablet) 100 mg PO BEDTIME [facility] Last Admin: 11/12/22 20:04 Dose: 100 mg Documented By: LUIS MIGUEL Labs CBC & Chem 7: 11/12/22 10:31 11/08/22 16:14 Labs: Laboratory Results - last 24 hr 11/12/22 11/12/22 11/12/22 10:31 15:10 18:51 POC Glucose 278 H 218 H Procalcitonin 0.03 11/13/22 11/13/22 07:09 11:00 POC Glucose 172 H 137 H Procalcitonin Assessment and Plan (1) Influenza A: Status: Acute (2) Asthma exacerbation: Status: Acute Plan 62yo F with HTN, HLD, CAD s/p PCI, DM2, PAD, ashtma, COPD, steroid-dependent rheumatoid arthritis, fibromyalgia, and bipolar depression presenting with 5 days of flu-like symptoms and found to have influenza A with acute asthma/COPD exacerbation; was doing well up to this morning and developed acute shortness of breath exam consistent with bronchospasm 1.Aqcute asthma/COPD exacerbation secondary influenza a - stat dose methylprednisolone 125 mg followed by 60 mg q.6 for 2 days -empiric doxycycline -portable chest x-ray 2.Migraine ZHENG - prn Fioricet 3. CAD - statin, ticagrelor 4.HTN -acceptable control on current therapies -adjust as indicated 5. DM2 - continue outpatient basilar therapies -lispro correctional scale 6.RA - on baseline prednisone; continue sulfasalazine Full code Lovenox Given today's exacerbation. Patient will require ongoing hospitalization with increased steroids and empiric IV antibiotics to treat acute bronchospasm Time Spent With Patient Time: Total time managing care of this patient today ____ minutes. Quality Stroke Does the patient have a stroke diagnosis?: No VTE Prior VTE?: No VTE Risk Level:: Medical - moderate - high VTE Device Contraindication: N/A - Device Ordered VTE Drug Contraindication: N/A - Med Ordered
[2022-11-13] MEDS: methylPREDNISolone Sod Succ 125 MG/2 ML VIAL IVPUSH (12:19)
[2022-11-13] MEDS: Morphine Sulfate Immed Release 15 MG TABLET PO (12:19)
[2022-11-13] MEDS: Doxycycline Hyclate 100 MG in 0.9 % Sodium Chloride 250 ML 166.67 MG IV ×2 (12:19→22:26)
[2022-11-13 15:56] LABS: Glucose, Whole Blood 279 mg/dL (60-115)
[2022-11-13] MEDS: Enoxaparin Sodium 40 MG/0.4 ML SYRINGE SUBCUT (19:06)
[2022-11-13 19:59] LABS: Glucose, Whole Blood 266 mg/dL (60-115)
[2022-11-13] MEDS: Famotidine 20 MG TABLET PO (21:06)
[2022-11-13] MEDS: traZODone HCL 100 MG TABLET PO (21:06)
[2022-11-13] MEDS: Letrozole 2.5 MG TABLET PO (21:06)
[2022-11-13] MEDS: Insulin Glargine,Hum.rec.anlog 100 UNIT/ML 10 ML VIAL 20 UNIT SUBCUT (21:07)
[2022-11-13] MEDS: Pregabalin 200 MG CAPSULE PO (21:07)
[2022-11-14] VITALS (9 sets, daily range): BP systolic 96–112; BP diastolic 53–68; PULSE 75–98; RESP 14–20; TEMP 36.3–37.3; O2SAT 94–98
[2022-11-14] MEDS: Omeprazole 20 MG CAPSULE.DR PO ×2 (05:15→16:44)
[2022-11-14 06:26] LABS: MANUAL DIFF FLAG NO
[2022-11-14 06:36] LABS: Basophils Percent Auto 0.2 % (0-2); Eosinophils Percent Auto 0.2 % (0-4); Hematocrit 38.1 % (37.0-47.0); Hemoglobin 12.4 g/dl (12.0-16.0); Imm Gran Abs Auto 0.13 X10*3/uL (0.00-0.03); Imm Gran Pct Auto 1.1 % (0.0-0.4); Lymphocytes Percent Auto 25.5 % (20-40); Mean Corpuscular HGB Conc 32.5 g/dl (31.0-35.0); Mean Corpuscular Volume 89.2 fL (80.0-98.0); Mean Platelet Volume 10.5 fL (9.4-12.3); Monocytes Absolute Auto 0.6 X10*3/uL (0.1-1.2); Monocytes Percent Auto 5.4 % (2-11); Neutrophils Percent Auto 67.6 % (45-73); Platelet Count 342 X10*3/uL (160-400); Red Blood Count 4.27 X10*6/uL (4.20-5.50); White Blood Count 11.9 X10*3/uL (4.8-10.8)
[2022-11-14 07:25] LABS: Alanine Aminotransferase 36 U/L (0-31); Albumin Level 3.4 g/dL (3.5-5.0); Alkaline Phosphatase 59 U/L (39-117); Anion Gap 13 (12-20); Aspartate Amino Transferase 24 U/L (5-31); Bilirubin Total 0.3 mg/dL (0.0-1.0); Blood Urea Nitrogen 12 mg/dL (9-16); Calcium 8.3 mg/dL (8.4-10.2); Carbon Dioxide 22 mmol/L (22-29); Chloride 110 mmol/L (96-108); Creatinine Clr Calc Pharmacy 64.9; Estimated Glomerular Filt Rate > 60; Glucose Fasting 131 mg/dL (60-99); Potassium 3.9 mmol/L (3.3-5.1); Sodium 141 mmol/L (135-145); Total Protein 5.6 g/dL (6.5-8.0)
[2022-11-14 07:44] LABS: Glucose, Whole Blood 154 mg/dL (60-115)
[2022-11-14] MEDS: Albuterol/Iprat 2.5/0.5MG 3 ML AMPUL.NEB INHALE ×4 (07:56→19:49)
[2022-11-14] MEDS: Insulin Lispro 100 UNIT/ML 3 ML VIAL SUBCUT ×2 (08:13→16:45)
[2022-11-14] MEDS: 0.9 % Sodium Chloride Flush 3 ML SYRINGE IVFLUSH ×3 (08:14→20:11)
[2022-11-14] MEDS: lamoTRIgine 25 MG TABLET PO ×2 (08:15→20:10)
[2022-11-14] MEDS: sulfaSALAzine 500 MG TABLET PO ×2 (08:15→20:11)
[2022-11-14] MEDS: Azithromycin 250 MG TABLET PO (08:15)
[2022-11-14] MEDS: guaiFENesin LA 600 MG TAB.ER.12H PO ×2 (08:16→20:10)
[2022-11-14] MEDS: Aspirin Enteric Coated 81 MG TABLET.DR PO (08:16)
[2022-11-14] MEDS: Sennosides/Docusate Sodium TABLET 2 TAB PO (08:16)
[2022-11-14] MEDS: Atorvastatin Calcium 80 MG TABLET PO (08:16)
[2022-11-14] MEDS: Pregabalin 150 MG CAPSULE PO (08:16)
[2022-11-14] MEDS: Losartan Potassium 25 MG TABLET PO (08:16)
[2022-11-14] MEDS: Metoprolol Tartrate 12.5 MG HALFTAB PO ×2 (08:17→20:10)
[2022-11-14] MEDS: Ticagrelor 90 MG TABLET PO ×2 (08:17→20:10)
[2022-11-14] MEDS: predniSONE 5 MG TABLET PO (08:17)
[2022-11-14] MEDS: Butalb/Acetamin/Caff 50/325/40 TABLET 1 TAB PO ×2 (08:22→16:44)
--- NOTE | 2022-11-14 10:47 | HO.PM.IMPN ---
Subjective Subjective Date of Service: 11/14/22 Interval History: Still short of breath with minimal exertion; cough nonproductive Review of Systems Admits to shortness of breath with minimal exertion Denies chest pain Denies nausea vomiting diarrhea Denies fever chills Physical Exam Vital Signs: Vital Signs: Last Vital Signs Temp 99.1 F 11/14/22 07:48 Pulse 97 11/14/22 07:58 Resp 18 11/14/22 07:58 BP 96/53 L 11/14/22 07:48 Pulse Ox 94 11/14/22 07:48 O2 Del Method 11/14/22 07:48 BMI result Body Mass Index 26.3 Const: Other: Awake alert resting comfortably Resp: Other: Diminished at bases bilaterally with dense expiratory wheezes throughout. Scant rhonchi that clear with cough Cardio: Other: No S4; positive S1-S2; no S3 murmurs rubs or gallops GI: Other: Soft nontender nondistended normoactive bowel sounds Extrem: Other: No edema bilaterally Objective Data Active Medications Acetaminophen (Acetaminophen 325 Mg Tablet) 650 mg PO Q6H PRN PRN Reason: Pain, Mild (Pain Scale 1-3) Last Admin: 11/13/22 10:42 Dose: 650 mg Documented By: FRANCINE Acetaminophen/Butalbital/Caffeine (Butalb/Acetamin/Caff 50/325/40 Tablet) 1 tab PO Q6H PRN PRN Reason: migraine Last Admin: 11/14/22 08:22 Dose: 1 tab Documented By: SD Albuterol Sulfate (Albuterol Sulfate (0.083%) 2.5 Mg/3 Ml Vial.Felix) 2.5 mg INHALE Q2H PRN PRN Reason: Shortness of Breath/Wheezing Last Admin: 11/11/22 08:29 Dose: 2.5 mg Documented By: JESUS Albuterol/Ipratropium (Albuterol/Iprat 2.5/0.5mg 3 Ml Ampul.Felix) 3 ml INHALE RQ4H WHILE AWAKE [facility] Last Admin: 11/14/22 07:56 Dose: 3 ml Documented By: JARVIS Aspirin (Aspirin Enteric Coated 81 Mg Tablet.) 81 mg PO DAILY [facility] Last Admin: 11/14/22 08:16 Dose: 81 mg Documented By: SD Atorvastatin Calcium (Atorvastatin Calcium 80 Mg Tablet) 80 mg PO DAILY [facility] Last Admin: 11/14/22 08:16 Dose: 80 mg Documented By: SD Azithromycin (Azithromycin 250 Mg Tablet) 250 mg PO MOWEFR@0900 [facility] Last Admin: 11/14/22 08:15 Dose: 250 mg Documented By: SD Dextrose (Dextrose 50 % 25 Gm/50 Ml Syringe) 25 gm IVPUSH Q15M PRN; Protocol PRN Reason: per Hypoglycemia Standing Ord. Dicyclomine HCl (Dicyclomine Hcl 10 Mg Capsule) 10 mg PO TID PRN PRN Reason: for abdominal pain Enoxaparin Sodium (Enoxaparin Sodium 40 Mg/0.4 Ml Syringe) 40 mg SUBCUT Q24H [facility] Last Admin: 11/13/22 19:06 Dose: 40 mg Documented By: FRANCINE Famotidine (Famotidine 20 Mg Tablet) 20 mg PO BEDTIME [facility] Last Admin: 11/13/22 21:06 Dose: 20 mg Documented By: LUIS MIGUEL Glucose (Glucose Gel 15 Gm Gel..Gram.) 15 gm PO Q15M PRN; Protocol PRN Reason: per Hypoglycemia Standing Ord. Guaifenesin (Guaifenesin La 600 Mg Tab.Er.12h) 600 mg PO BID [facility] Last Admin: 11/14/22 08:16 Dose: 600 mg Documented By: SD Guaifenesin/Dextromethorphan (Guaifenesin Dm 100/10/5 Ml 5 Ml Syrup) 5 ml PO Q4H PRN PRN Reason: cough/ Last Admin: 11/09/22 11:00 Dose: 5 ml Documented By: KEVIN Doxycycline Hyclate 100 mg/ (Sodium Chloride) 250 mls @ 166.67 mls/hr IV Q12H [facility] Last Infusion: 11/14/22 00:09 Dose: 0 mls/hr Documented By: LUIS MIGUEL Insulin Glargine (Insulin Glargine,Hum.Rec.Anlog 100 Unit/Ml 10 Ml Vial) 20 unit SUBCUT BEDTIME [facility] Last Admin: 11/13/22 21:07 Dose: 20 unit Documented By: LUIS MIGUEL Insulin Human Lispro (Insulin Lispro 100 Unit/Ml 3 Ml Vial) 0 unit SUBCUT QIDACHS [facility]; Protocol Last Admin: 11/14/22 08:13 Dose: 2 unit Documented By: SD Lamotrigine (Lamotrigine 25 Mg Tablet) 25 mg PO BID [facility] Last Admin: 11/14/22 08:15 Dose: 25 mg Documented By: SD Letrozole (Letrozole 2.5 Mg Tablet) 2.5 mg PO BEDTIME [facility] Last Admin: 11/13/22 21:06 Dose: 2.5 mg Documented By: LUIS MIGUEL Losartan Potassium (Losartan Potassium 25 Mg Tablet) 25 mg PO DAILY [facility]; Protocol Last Admin: 11/14/22 08:16 Dose: 25 mg Documented By: SD Metoprolol Tartrate (Metoprolol Tartrate 12.5 Mg Halftab) 12.5 mg PO BID [facility]; Protocol Last Admin: 11/14/22 08:17 Dose: 12.5 mg Documented By: SD Nitroglycerin (Nitroglycerin 0.4 Mg Tab.Subl) 0.4 mg SUBLINGUAL Q5M PRN PRN Reason: Chest Pain Non-Formulary Medication (Lubiprostone [Amitiza]) 8 mcg PO BID [facility] Omeprazole (Omeprazole 20 Mg Capsule.) 20 mg PO BID@0630,1630 [facility] Last Admin: 11/14/22 05:15 Dose: 20 mg Documented By: LUIS MIGUEL Ondansetron HCl (Ondansetron Hcl 4 Mg/2 Ml Vial) 4 mg IVPUSH Q8H PRN PRN Reason: Nausea and Vomiting Last Admin: 11/12/22 11:04 Dose: 4 mg Documented By: LONNIE Polyethylene Glycol (Polyethylene Glycol 3350 17 Gm Powd.Pack) 17 gm PO DAILY [facility] Last Admin: 11/14/22 08:18 Dose: Not Given Documented By: SD Non-Admin Reason: multiple loos stools Prednisone (Prednisone 5 Mg Tablet) 5 mg PO DAILY [facility] Last Admin: 11/14/22 08:17 Dose: 5 mg Documented By: SD Pregabalin (Pregabalin 200 Mg Capsule) 200 mg PO BEDTIME [facility] Last Admin: 11/13/22 21:07 Dose: 200 mg Documented By: LUIS MIGUEL Pregabalin (Pregabalin 150 Mg Capsule) 150 mg PO DAILY [facility] Last Admin: 11/14/22 08:16 Dose: 150 mg Documented By: SD Senna/Docusate Sodium (Sennosides/Docusate Sodium Tablet) 2 tab PO BID [facility] Last Admin: 11/14/22 08:16 Dose: 2 tab Documented By: SD Sodium Chloride (0.9 % Sodium Chloride Flush 3 Ml Syringe) 3 ml IVFLUSH QSHIFT [facility] Last Admin: 11/14/22 08:14 Dose: 3 ml Documented By: SD Sulfasalazine (Sulfasalazine 500 Mg Tablet) 500 mg PO BID [facility] Last Admin: 11/14/22 08:15 Dose: 500 mg Documented By: SD Sumatriptan Succinate (Sumatriptan Succinate 50 Mg Tablet) 50 mg PO DAILY MRX1 PRN PRN Reason: migraine Last Admin: 11/09/22 09:44 Dose: 50 mg Documented By: KEVIN Ticagrelor (Ticagrelor 90 Mg Tablet) 90 mg PO BID [facility] Last Admin: 11/14/22 08:17 Dose: 90 mg Documented By: SD Trazodone HCl (Trazodone Hcl 100 Mg Tablet) 100 mg PO BEDTIME [facility] Last Admin: 11/13/22 21:06 Dose: 100 mg Documented By: LUIS MIGUEL Labs CBC & Chem 7: 11/14/22 05:08 11/14/22 05:08 Labs: Laboratory Results - last 24 hr 11/13/22 11/13/22 11/13/22 11:00 15:35 19:39 MCV MCH MCHC RDW Plt Count MPV Immature Gran % (Auto) Neut % (Auto) Lymph % (Auto) [place] % (Auto) Eos % (Auto) Baso % (Auto) Lymph # (Auto) [place] # (Auto) Eos # (Auto) Baso # (Auto) Abs Immat Gran (auto) Absolute Neuts (auto) Absolute Nucleated RBC Nucleated RBC % (auto) Anion Gap Estim Creat Clear Calc Estimated GFR POC Glucose 137 H 279 H 266 H Fasting Glucose Calcium Total Bilirubin AST ALT Alkaline Phosphatase Total Protein Albumin 11/14/22 11/14/22 11/14/22 05:08 05:08 07:34 MCV 89.2 MCH 29.0 MCHC 32.5 RDW 14.0 Plt Count 342 MPV 10.5 Immature Gran % (Auto) 1.1 H Neut % (Auto) 67.6 Lymph % (Auto) 25.5 [place] % (Auto) 5.4 Eos % (Auto) 0.2 Baso % (Auto) 0.2 Lymph # (Auto) 3.0 [place] # (Auto) 0.6 Eos # (Auto) 0.0 Baso # (Auto) 0.0 Abs Immat Gran (auto) 0.13 H Absolute Neuts (auto) 8.0 Absolute Nucleated RBC 0.000 Nucleated RBC % (auto) 0.0 Anion Gap 13 Estim Creat Clear Calc 64.9 Estimated GFR > 60 POC Glucose 154 H Fasting Glucose 131 H Calcium 8.3 L D Total Bilirubin 0.3 AST 24 D ALT 36 H Alkaline Phosphatase 59 D Total Protein 5.6 L Albumin 3.4 L Microbiology Microbiology Results: Microbiology 11/08/22 16:16 Blood Culture - Final Blood - Venous No growth after 5 days. 11/08/22 16:16 Blood Culture - Final Blood - Venous No growth after 5 days. Assessment and Plan (1) Asthma exacerbation: Status: Acute (2) Influenza A: Status: Acute (3) HTN (hypertension): Status: Acute (4) T2DM (type 2 diabetes mellitus): Status: Acute Plan 62yo F with HTN, HLD, CAD s/p PCI, DM2, PAD, ashtma, COPD, steroid-dependent rheumatoid arthritis, fibromyalgia, and bipolar depression presenting with 5 days of flu-like symptoms and found to have influenza A with acute asthma/COPD exacerbation; was doing well up to this morning and developed acute shortness of breath exam consistent with bronchospasm 1.Aqcute asthma/COPD exacerbation secondary influenza a - stat dose methylprednisolone 125 mg followed by 60 mg q.6 for 2 days - doxycycline(1) -continue nebs as ordered 2.Migraine ZHENG - prn Fioricet 3. CAD - statin, ticagrelor 4.HTN -acceptable control on current therapies -adjust as indicated 5. DM2 - continue outpatient basilar therapies -lispro correctional scale 6.RA - on baseline prednisone; continue sulfasalazine Full code Lovenox Patient will require ongoing hospitalization with increased steroids and empiric IV antibiotics to treat acute bronchospasm Time Spent With Patient Time: Total time managing care of this patient today ____ minutes. Quality Stroke Does the patient have a stroke diagnosis?: No VTE Prior VTE?: No VTE Risk Level:: Medical - moderate - high VTE Device Contraindication: N/A - Device Ordered VTE Drug Contraindication: N/A - Med Ordered
[2022-11-14] MEDS: ondansetron HCL 4 MG/2 ML VIAL IVPUSH (11:10)
[2022-11-14] MEDS: Doxycycline Hyclate 100 MG in 0.9 % Sodium Chloride 250 ML 166.67 MG IV (11:57)
--- NOTE | 2022-11-14 15:22 | P.CDIC_ITS ---
CDI Concurrent Query Documentation Clarification: PHYSICIAN'S DOCUMENTATION REQUEST Date of Query: 11/14/22 1522 Patient Name: Sosa Joiner Admit Date: 11/08/22 Dear Doctor, A review of the medical record indicates additional documentation may be needed. Please review below and update the documentation accordingly. Clinical Indicators: Is there a diagnosis that correlates with the findings below: Risk Factors/Clinical Indicators/Treatments Labs: POCs 11/12 Home medications: Dulaglutide 1.5 mg subq Please clarify the following regarding Diabetes Mellitus (DM): * Hyperglycemia * No complications of DM * Other complication ? please specify * Unable to determine Use of terms such as suspected, likely, concern for, or probable (associated with a specific diagnosis that is being evaluated, monitored, or treated as if it exists) are acceptable and can be coded in the inpatient setting, when documented at the time of discharge. Thank you, Jennifer Kessler MS, RN, CCRN Extension: [phone] Please use your independent medical judgment in providing your response. THIS QUERY IS PART OF THE PERMANENT MEDICAL RECORD Provider Response: Other Other Diagnosis: Hyperglycemia
[2022-11-14 15:37] LABS: Glucose, Whole Blood 96 mg/dL (60-115)
[2022-11-14 16:13] LABS: Glucose, Whole Blood 262 mg/dL (60-115)
[2022-11-14] MEDS: Enoxaparin Sodium 40 MG/0.4 ML SYRINGE SUBCUT (18:20)
[2022-11-14 20:03] LABS: Glucose, Whole Blood 97 mg/dL (60-115)
[2022-11-14] MEDS: Pregabalin 200 MG CAPSULE PO (20:10)
[2022-11-14] MEDS: Famotidine 20 MG TABLET PO (20:11)
[2022-11-14] MEDS: traZODone HCL 100 MG TABLET PO (20:11)
[2022-11-14] MEDS: Letrozole 2.5 MG TABLET PO (20:11)
[2022-11-14] MEDS: Insulin Glargine,Hum.rec.anlog 100 UNIT/ML 10 ML VIAL 20 UNIT SUBCUT (20:11)
[2022-11-14] MEDS: Morphine Sulfate Immed Release 15 MG TABLET PO (20:11)
[2022-11-15] VITALS (8 sets, daily range): BP systolic 99–118; BP diastolic 55–58; PULSE 71–82; RESP 14–18; TEMP 36.5–37.2; O2SAT 90–98
[2022-11-15] MEDS: Doxycycline Hyclate 100 MG in 0.9 % Sodium Chloride 250 ML 166.67 MG IV ×3 (00:36→23:27)
[2022-11-15] MEDS: Omeprazole 20 MG CAPSULE.DR PO ×2 (05:31→17:04)
[2022-11-15] MEDS: Morphine Sulfate Immed Release 15 MG TABLET PO ×2 (05:33→17:04)
[2022-11-15] MEDS: Acetaminophen 325 MG TABLET 650 MG PO ×2 (05:33→13:58)
[2022-11-15 06:06] LABS: MANUAL DIFF FLAG NO
[2022-11-15 06:41] LABS: Basophils Percent Auto 0.2 % (0-2); Eosinophils Absolute Auto 0.1 X10*3/uL (0.0-0.4); Eosinophils Percent Auto 0.9 % (0-4); Hematocrit 37.4 % (37.0-47.0); Hemoglobin 11.7 g/dl (12.0-16.0); Imm Gran Abs Auto 0.12 X10*3/uL (0.00-0.03); Lymphocytes Absolute Auto 3.7 X10*3/uL (1.2-4.9); Lymphocytes Percent Auto 32.3 % (20-40); Mean Corpuscular HGB Conc 31.3 g/dl (31.0-35.0); Mean Corpuscular Hemoglobin 28.3 pg (27.0-33.0); Mean Corpuscular Volume 90.6 fL (80.0-98.0); Mean Platelet Volume 10.5 fL (9.4-12.3); Monocytes Absolute Auto 0.7 X10*3/uL (0.1-1.2); Monocytes Percent Auto 6.2 % (2-11); Neutrophils Absolute Auto 6.9 x10*3/uL (2.0-8.3); Neutrophils Percent Auto 59.4 % (45-73); Platelet Count 338 X10*3/uL (160-400); Red Blood Count 4.13 X10*6/uL (4.20-5.50); Red Cell Distribution Width 14.4 % (11.0-16.0); White Blood Count 11.6 X10*3/uL (4.8-10.8)
[2022-11-15 06:43] LABS: Alanine Aminotransferase 32 U/L (0-31); Albumin Level 3.1 g/dL (3.5-5.0); Alkaline Phosphatase 55 U/L (39-117); Anion Gap 11 (12-20); Aspartate Amino Transferase 15 U/L (5-31); Bilirubin Total 0.3 mg/dL (0.0-1.0); Blood Urea Nitrogen 11 mg/dL (9-16); Carbon Dioxide 24 mmol/L (22-29); Chloride 111 mmol/L (96-108); Creatinine Clr Calc Pharmacy 63.1; Estimated Glomerular Filt Rate > 60; Glucose Fasting 85 mg/dL (60-99); Sodium 142 mmol/L (135-145)
[2022-11-15 08:05] LABS: Glucose, Whole Blood 86 mg/dL (60-115)
[2022-11-15] MEDS: Albuterol/Iprat 2.5/0.5MG 3 ML AMPUL.NEB INHALE ×4 (08:53→19:40)
[2022-11-15] MEDS: Sennosides/Docusate Sodium TABLET 2 TAB PO ×2 (09:49→20:23)
[2022-11-15] MEDS: Atorvastatin Calcium 80 MG TABLET PO (09:49)
[2022-11-15] MEDS: sulfaSALAzine 500 MG TABLET PO ×2 (09:49→20:24)
[2022-11-15] MEDS: guaiFENesin LA 600 MG TAB.ER.12H PO ×2 (09:49→20:23)
[2022-11-15] MEDS: Losartan Potassium 25 MG TABLET PO (09:49)
[2022-11-15] MEDS: 0.9 % Sodium Chloride Flush 3 ML SYRINGE IVFLUSH ×3 (09:49→20:27)
[2022-11-15] MEDS: lamoTRIgine 25 MG TABLET PO ×2 (09:50→20:24)
[2022-11-15] MEDS: Pregabalin 150 MG CAPSULE PO (09:50)
[2022-11-15] MEDS: Metoprolol Tartrate 12.5 MG HALFTAB PO (09:50)
[2022-11-15] MEDS: Ticagrelor 90 MG TABLET PO ×2 (09:50→20:24)
[2022-11-15] MEDS: Aspirin Enteric Coated 81 MG TABLET.DR PO (09:50)
[2022-11-15] MEDS: predniSONE 5 MG TABLET PO (09:50)
[2022-11-15 11:52] LABS: Glucose, Whole Blood 144 mg/dL (60-115)
--- NOTE | 2022-11-15 15:17 | P.PNIM_ITS ---
Subjective Subjective Date of Service: 11/15/22 Interval History: Still short of breath with minimal exertion; cough nonproductive. Unable to ambulate 100 ft without extreme shortness of breath Review of Systems Admits to shortness of breath with minimal exertion Denies chest pain Denies nausea vomiting diarrhea Denies fever chills Physical Exam Vital Signs: Vital Signs: Last Vital Signs Temp 98.2 F 11/15/22 08:00 Pulse 71 11/15/22 12:21 Resp 18 11/15/22 12:21 BP 118/55 L 11/15/22 08:00 Pulse Ox 96 11/15/22 08:00 O2 Del Method 11/15/22 08:00 BMI result Body Mass Index 26.3 Const: Other: Awake alert resting comfortably Resp: Other: Diminished at bases bilaterally with dense expiratory wheezes throughout. Scant rhonchi that clear with cough Cardio: Other: No S4; positive S1-S2; no S3 murmurs rubs or gallops GI: Other: Soft nontender nondistended normoactive bowel sounds Extrem: Other: No edema bilaterally Objective Data Active Medications Acetaminophen (Acetaminophen 325 Mg Tablet) 650 mg PO Q6H PRN PRN Reason: Pain, Mild (Pain Scale 1-3) Last Admin: 11/15/22 13:58 Dose: 650 mg Documented By: SD Acetaminophen/Butalbital/Caffeine (Butalb/Acetamin/Caff 50/325/40 Tablet) 1 tab PO Q6H PRN PRN Reason: migraine Last Admin: 11/14/22 16:44 Dose: 1 tab Documented By: SD Albuterol Sulfate (Albuterol Sulfate (0.083%) 2.5 Mg/3 Ml Vial.Neb) 2.5 mg INHALE Q2H PRN PRN Reason: Shortness of Breath/Wheezing Last Admin: 11/11/22 08:29 Dose: 2.5 mg Documented By: JESUS Albuterol/Ipratropium (Albuterol/Iprat 2.5/0.5mg 3 Ml Ampul.Neb) 3 ml INHALE RQ4H WHILE AWAKE [facility] Last Admin: 11/15/22 12:21 Dose: 3 ml Documented By: JESUS Aspirin (Aspirin Enteric Coated 81 Mg Tablet.) 81 mg PO DAILY [facility] Last Admin: 11/15/22 09:50 Dose: 81 mg Documented By: SD Atorvastatin Calcium (Atorvastatin Calcium 80 Mg Tablet) 80 mg PO DAILY [facility] Last Admin: 11/15/22 09:49 Dose: 80 mg Documented By: SD Azithromycin (Azithromycin 250 Mg Tablet) 250 mg PO MOWEFR@0900 [facility] Last Admin: 11/14/22 08:15 Dose: 250 mg Documented By: SD Dextrose (Dextrose 50 % 25 Gm/50 Ml Syringe) 25 gm IVPUSH Q15M PRN; Protocol PRN Reason: per Hypoglycemia Standing Ord. Dicyclomine HCl (Dicyclomine Hcl 10 Mg Capsule) 10 mg PO TID PRN PRN Reason: for abdominal pain Enoxaparin Sodium (Enoxaparin Sodium 40 Mg/0.4 Ml Syringe) 40 mg SUBCUT Q24H [facility] Last Admin: 11/14/22 18:20 Dose: 40 mg Documented By: SD Famotidine (Famotidine 20 Mg Tablet) 20 mg PO BEDTIME [facility] Last Admin: 11/14/22 20:11 Dose: 20 mg Documented By: MED Glucose (Glucose Gel 15 Gm Gel..Gram.) 15 gm PO Q15M PRN; Protocol PRN Reason: per Hypoglycemia Standing Ord. Guaifenesin (Guaifenesin La 600 Mg Tab.Er.12h) 600 mg PO BID [facility] Last Admin: 11/15/22 09:49 Dose: 600 mg Documented By: SD Guaifenesin/Dextromethorphan (Guaifenesin Dm 100/10/5 Ml 5 Ml Syrup) 5 ml PO Q4H PRN PRN Reason: cough/ Last Admin: 11/09/22 11:00 Dose: 5 ml Documented By: KEVIN Doxycycline Hyclate 100 mg/ (Sodium Chloride) 250 mls @ 166.67 mls/hr IV Q12H [facility] Last Infusion: 11/15/22 13:44 Dose: 0 mls/hr Documented By: SD Insulin Glargine (Insulin Glargine,Hum.Rec.Anlog 100 Unit/Ml 10 Ml Vial) 20 unit SUBCUT BEDTIME [facility] Last Admin: 11/14/22 20:11 Dose: 20 unit Documented By: MED Insulin Human Lispro (Insulin Lispro 100 Unit/Ml 3 Ml Vial) 0 unit SUBCUT QIDACHS [facility]; Protocol Last Admin: 11/15/22 11:54 Dose: Not Given Documented By: SD Non-Admin Reason: No Insulin Coverage Lamotrigine (Lamotrigine 25 Mg Tablet) 25 mg PO BID [facility] Last Admin: 11/15/22 09:50 Dose: 25 mg Documented By: SD Letrozole (Letrozole 2.5 Mg Tablet) 2.5 mg PO BEDTIME [facility] Last Admin: 11/14/22 20:11 Dose: 2.5 mg Documented By: MED Losartan Potassium (Losartan Potassium 25 Mg Tablet) 25 mg PO DAILY [facility]; Protocol Last Admin: 11/15/22 09:49 Dose: 25 mg Documented By: SD Metoprolol Tartrate (Metoprolol Tartrate 12.5 Mg Halftab) 12.5 mg PO BID [facility]; Protocol Last Admin: 11/15/22 09:50 Dose: 12.5 mg Documented By: SD Morphine Sulfate (Morphine Sulfate Immed Release 15 Mg Tablet) 15 mg PO BID PRN PRN Reason: Pain, Severe (Pain Scale 7-10) Last Admin: 11/15/22 05:33 Dose: 15 mg Documented By: MED Nitroglycerin (Nitroglycerin 0.4 Mg Tab.Subl) 0.4 mg SUBLINGUAL Q5M PRN PRN Reason: Chest Pain Non-Formulary Medication (Lubiprostone [Amitiza]) 8 mcg PO BID [facility] Omeprazole (Omeprazole 20 Mg Capsule.Dr) 20 mg PO BID@0630,1630 [facility] Last Admin: 11/15/22 05:31 Dose: 20 mg Documented By: MED Ondansetron HCl (Ondansetron Hcl 4 Mg/2 Ml Vial) 4 mg IVPUSH Q8H PRN PRN Reason: Nausea and Vomiting Last Admin: 11/14/22 11:10 Dose: 4 mg Documented By: SD Polyethylene Glycol (Polyethylene Glycol 3350 17 Gm Powd.Pack) 17 gm PO DAILY [facility] Last Admin: 11/15/22 09:50 Dose: Not Given Documented By: SD Non-Admin Reason: Patient Refused Prednisone (Prednisone 5 Mg Tablet) 5 mg PO DAILY [facility] Last Admin: 11/15/22 09:50 Dose: 5 mg Documented By: SD Pregabalin (Pregabalin 200 Mg Capsule) 200 mg PO BEDTIME [facility] Last Admin: 11/14/22 20:10 Dose: 200 mg Documented By: MED Pregabalin (Pregabalin 150 Mg Capsule) 150 mg PO DAILY [facility] Last Admin: 11/15/22 09:50 Dose: 150 mg Documented By: SD Senna/Docusate Sodium (Sennosides/Docusate Sodium Tablet) 2 tab PO BID [facility] Last Admin: 11/15/22 09:49 Dose: 2 tab Documented By: SD Sodium Chloride (0.9 % Sodium Chloride Flush 3 Ml Syringe) 3 ml IVFLUSH QSHIFT [facility] Last Admin: 11/15/22 09:49 Dose: 3 ml Documented By: SD Sulfasalazine (Sulfasalazine 500 Mg Tablet) 500 mg PO BID [facility] Last Admin: 11/15/22 09:49 Dose: 500 mg Documented By: SD Sumatriptan Succinate (Sumatriptan Succinate 50 Mg Tablet) 50 mg PO DAILY MRX1 PRN PRN Reason: migraine Last Admin: 11/09/22 09:44 Dose: 50 mg Documented By: KEVIN Ticagrelor (Ticagrelor 90 Mg Tablet) 90 mg PO BID [facility] Last Admin: 11/15/22 09:50 Dose: 90 mg Documented By: SD Trazodone HCl (Trazodone Hcl 100 Mg Tablet) 100 mg PO BEDTIME [facility] Last Admin: 11/14/22 20:11 Dose: 100 mg Documented By: MED Labs CBC & Chem 7: 11/15/22 05:08 11/15/22 05:08 Labs: Laboratory Results - last 24 hr 11/14/22 11/14/22 11/14/22 11:24 15:22 19:49 MCV MCH MCHC RDW Plt Count MPV Immature Gran % (Auto) Neut % (Auto) Lymph % (Auto) [place] % (Auto) Eos % (Auto) Baso % (Auto) Lymph # (Auto) [place] # (Auto) Eos # (Auto) Baso # (Auto) Abs Immat Gran (auto) Absolute Neuts (auto) Absolute Nucleated RBC Nucleated RBC % (auto) Anion Gap Estim Creat Clear Calc Estimated GFR POC Glucose 96 262 H 97 Fasting Glucose Calcium Total Bilirubin AST ALT Alkaline Phosphatase Total Protein Albumin 11/15/22 11/15/22 11/15/22 05:08 05:08 07:47 MCV 90.6 MCH 28.3 MCHC 31.3 RDW 14.4 Plt Count 338 MPV 10.5 Immature Gran % (Auto) 1.0 H Neut % (Auto) 59.4 Lymph % (Auto) 32.3 [place] % (Auto) 6.2 Eos % (Auto) 0.9 Baso % (Auto) 0.2 Lymph # (Auto) 3.7 [place] # (Auto) 0.7 Eos # (Auto) 0.1 Baso # (Auto) 0.0 Abs Immat Gran (auto) 0.12 H Absolute Neuts (auto) 6.9 Absolute Nucleated RBC 0.000 Nucleated RBC % (auto) 0.0 Anion Gap 11 L Estim Creat Clear Calc 63.1 Estimated GFR > 60 POC Glucose 86 Fasting Glucose 85 Calcium 8.0 L Total Bilirubin 0.3 AST 15 ALT 32 H Alkaline Phosphatase 55 Total Protein 5.0 L Albumin 3.1 L 11/15/22 11:36 MCV MCH MCHC RDW Plt Count MPV Immature Gran % (Auto) Neut % (Auto) Lymph % (Auto) [place] % (Auto) Eos % (Auto) Baso % (Auto) Lymph # (Auto) [place] # (Auto) Eos # (Auto) Baso # (Auto) Abs Immat Gran (auto) Absolute Neuts (auto) Absolute Nucleated RBC Nucleated RBC % (auto) Anion Gap Estim Creat Clear Calc Estimated GFR POC Glucose 144 H Fasting Glucose Calcium Total Bilirubin AST ALT Alkaline Phosphatase Total Protein Albumin Assessment and Plan (1) Asthma exacerbation: Status: Acute (2) Influenza A: Status: Acute (3) T2DM (type 2 diabetes mellitus): Status: Acute Plan 62yo F with HTN, HLD, CAD s/p PCI, DM2, PAD, ashtma, COPD, steroid-dependent rheumatoid arthritis, fibromyalgia, and bipolar depression presenting with 5 days of flu-like symptoms and found to have influenza A with acute asthma/COPD exacerbation; was doing well up to this morning and developed acute shortness of breath exam consistent with bronchospasm 1.Acute asthma/COPD exacerbation secondary influenza a - stat dose methylprednisolone 125 mg followed by 60 mg q.6 for 2 days - doxycycline(2) -continue nebs as ordered 2.Migraine ZHENG - prn Fioricet 3. CAD - statin, ticagrelor 4.HTN -acceptable control on current therapies -adjust as indicated 5. DM2 - continue outpatient basilar therapies -lispro correctional scale 6.RA - on baseline prednisone; continue sulfasalazine Full code Lovenox Patient will require ongoing hospitalization with increased steroids and empiric IV antibiotics to treat acute bronchospasm Time Spent With Patient Time: Total time managing care of this patient today ____ minutes. Quality Stroke Does the patient have a stroke diagnosis?: No VTE Prior VTE?: No VTE Risk Level:: Medical - moderate - high VTE Device Contraindication: N/A - Device Ordered VTE Drug Contraindication: N/A - Med Ordered
[2022-11-15 15:45] LABS: Glucose, Whole Blood 203 mg/dL (60-115)
[2022-11-15] MEDS: Insulin Lispro 100 UNIT/ML 3 ML VIAL SUBCUT (17:04)
[2022-11-15] MEDS: Enoxaparin Sodium 40 MG/0.4 ML SYRINGE SUBCUT (17:10)
[2022-11-15 19:35] LABS: Glucose, Whole Blood 88 mg/dL (60-115)
[2022-11-15] MEDS: Pregabalin 200 MG CAPSULE PO (20:23)
[2022-11-15] MEDS: Letrozole 2.5 MG TABLET PO (20:23)
[2022-11-15] MEDS: traZODone HCL 100 MG TABLET PO (20:23)
[2022-11-15] MEDS: Famotidine 20 MG TABLET PO (20:24)
[2022-11-16 03:43] VITALS: BP 101/54; PULSE 98; RESP 18; TEMP 36.6; O2SAT 93
[2022-11-16 05:27] LABS: MANUAL DIFF FLAG NO
[2022-11-16 05:34] LABS: Basophils Percent Auto 0.2 % (0-2); Eosinophils Absolute Auto 0.1 X10*3/uL (0.0-0.4); Eosinophils Percent Auto 1.2 % (0-4); Hematocrit 40.2 % (37.0-47.0); Hemoglobin 12.9 g/dl (12.0-16.0); Imm Gran Abs Auto 0.11 X10*3/uL (0.00-0.03); Imm Gran Pct Auto 0.9 % (0.0-0.4); Lymphocytes Absolute Auto 3.6 X10*3/uL (1.2-4.9); Mean Corpuscular HGB Conc 32.1 g/dl (31.0-35.0); Mean Corpuscular Volume 90.3 fL (80.0-98.0); Monocytes Percent Auto 8.1 % (2-11); Neutrophils Absolute Auto 7.1 x10*3/uL (2.0-8.3); Neutrophils Percent Auto 59.6 % (45-73); Platelet Count 336 X10*3/uL (160-400); Red Blood Count 4.45 X10*6/uL (4.20-5.50); Red Cell Distribution Width 14.2 % (11.0-16.0)
[2022-11-16] MEDS: Omeprazole 20 MG CAPSULE.DR PO ×2 (05:53→17:17)
[2022-11-16 06:14] LABS: Alanine Aminotransferase 27 U/L (0-31); Albumin Level 3.5 g/dL (3.5-5.0); Alkaline Phosphatase 72 U/L (39-117); Anion Gap 13 (12-20); Aspartate Amino Transferase 14 U/L (5-31); Bilirubin Total 0.4 mg/dL (0.0-1.0); Blood Urea Nitrogen 14 mg/dL (9-16); Carbon Dioxide 29 mmol/L (22-29); Chloride 104 mmol/L (96-108); Creatinine Clr Calc Pharmacy 51.4; Estimated Glomerular Filt Rate > 60; Glucose Fasting 123 mg/dL (60-99); Potassium 4.9 mmol/L (3.3-5.1); Sodium 141 mmol/L (135-145); Total Protein 5.8 g/dL (6.5-8.0)
[2022-11-16 07:37] LABS: Glucose, Whole Blood 116 mg/dL (60-115)
[2022-11-16 08:00] VITALS: BP 108/60; PULSE 95; RESP 18; TEMP 36.9; O2SAT 94
[2022-11-16] MEDS: Morphine Sulfate Immed Release 15 MG TABLET PO (09:54)
[2022-11-16] MEDS: Ticagrelor 90 MG TABLET PO ×2 (10:12→20:19)
[2022-11-16] MEDS: sulfaSALAzine 500 MG TABLET PO ×2 (10:12→20:18)
[2022-11-16] MEDS: lamoTRIgine 25 MG TABLET PO ×2 (10:12→20:19)
[2022-11-16] MEDS: Pregabalin 150 MG CAPSULE PO (10:13)
[2022-11-16] MEDS: Metoprolol Tartrate 12.5 MG HALFTAB PO ×2 (10:13→20:18)
[2022-11-16] MEDS: Aspirin Enteric Coated 81 MG TABLET.DR PO (10:13)
[2022-11-16] MEDS: guaiFENesin LA 600 MG TAB.ER.12H PO ×2 (10:13→20:19)
[2022-11-16] MEDS: predniSONE 5 MG TABLET PO (10:13)
[2022-11-16] MEDS: Atorvastatin Calcium 80 MG TABLET PO (10:13)
[2022-11-16] MEDS: Sennosides/Docusate Sodium TABLET 2 TAB PO ×2 (10:13→20:19)
[2022-11-16] MEDS: Losartan Potassium 25 MG TABLET PO (10:14)
[2022-11-16] MEDS: 0.9 % Sodium Chloride Flush 3 ML SYRINGE IVFLUSH ×3 (10:14→20:19)
[2022-11-16] MEDS: Azithromycin 250 MG TABLET PO (10:14)
[2022-11-16] MEDS: polyethylene glycoL 3350 17 GM POWD.PACK PO (10:14)
[2022-11-16] MEDS: Piperacillin Sodium/Tazobactam 4.5 GM in 0.9 % Sodium Chloride 100 ML IV ×3 (10:28→21:46)
[2022-11-16 11:20] LABS: Glucose, Whole Blood 193 mg/dL (60-115)
[2022-11-16 11:53] VITALS: BP 108/60; PULSE 95; O2SAT 94
[2022-11-16] MEDS: Doxycycline Hyclate 100 MG in 0.9 % Sodium Chloride 250 ML 166.67 MG IV (11:59)
--- NOTE | 2022-11-16 13:29 | P.PNIM_ITS ---
Subjective Subjective Date of Service: 11/16/22 Interval History: Continues with significant shortness of breath with minimal exertion. Now complaining of lower abdominal pain and cramping similar to past episodes of colitis Review of Systems Admits to shortness of breath with minimal exertion Denies chest pain Denies nausea vomiting diarrhea Denies fever chills Admits to lower abdominal pain Physical Exam Vital Signs: Vital Signs: Last Vital Signs Temp 98.4 F 11/16/22 08:00 Pulse 95 11/16/22 11:53 Resp 18 11/16/22 08:00 BP 108/60 11/16/22 11:53 Pulse Ox 94 11/16/22 11:53 O2 Del Method 11/16/22 08:00 BMI result Body Mass Index 26.3 Const: Other: Awake alert resting comfortably Resp: Other: Diminished at bases bilaterally with dense expiratory wheezes throughout. Scant rhonchi that clear with cough Cardio: Other: No S4; positive S1-S2; no S3 murmurs rubs or gallops GI: Other: Mild tenderness bilateral lower quadrants without rebound. Bowel sounds quiet Extrem: Other: No edema bilaterally Objective Data Active Medications Acetaminophen (Acetaminophen 325 Mg Tablet) 650 mg PO Q6H PRN PRN Reason: Pain, Mild (Pain Scale 1-3) Last Admin: 11/15/22 13:58 Dose: 650 mg Documented By: SD Acetaminophen/Butalbital/Caffeine (Butalb/Acetamin/Caff 50/325/40 Tablet) 1 tab PO Q6H PRN PRN Reason: migraine Last Admin: 11/14/22 16:44 Dose: 1 tab Documented By: SD Aspirin (Aspirin Enteric Coated 81 Mg Tablet.) 81 mg PO DAILY [facility] Last Admin: 11/16/22 10:13 Dose: 81 mg Documented By: LONNIE Atorvastatin Calcium (Atorvastatin Calcium 80 Mg Tablet) 80 mg PO DAILY [facility] Last Admin: 11/16/22 10:13 Dose: 80 mg Documented By: LONNIE Azithromycin (Azithromycin 250 Mg Tablet) 250 mg PO MOWEFR@0900 [facility] Last Admin: 11/16/22 10:14 Dose: 250 mg Documented By: LONNIE Dextrose (Dextrose 50 % 25 Gm/50 Ml Syringe) 25 gm IVPUSH Q15M PRN; Protocol PRN Reason: per Hypoglycemia Standing Ord. Dicyclomine HCl (Dicyclomine Hcl 10 Mg Capsule) 10 mg PO TID PRN PRN Reason: for abdominal pain Enoxaparin Sodium (Enoxaparin Sodium 40 Mg/0.4 Ml Syringe) 40 mg SUBCUT Q24H [facility] Last Admin: 11/15/22 17:10 Dose: 40 mg Documented By: SD Famotidine (Famotidine 20 Mg Tablet) 20 mg PO BEDTIME [facility] Last Admin: 11/15/22 20:24 Dose: 20 mg Documented By: VEE Glucose (Glucose Gel 15 Gm Gel..Gram.) 15 gm PO Q15M PRN; Protocol PRN Reason: per Hypoglycemia Standing Ord. Guaifenesin (Guaifenesin La 600 Mg Tab.Er.12h) 600 mg PO BID [facility] Last Admin: 11/16/22 10:13 Dose: 600 mg Documented By: LONNIE Guaifenesin/Dextromethorphan (Guaifenesin Dm 100/10/5 Ml 5 Ml Syrup) 5 ml PO Q4H PRN PRN Reason: cough/ Last Admin: 11/09/22 11:00 Dose: 5 ml Documented By: KEVIN Doxycycline Hyclate 100 mg/ (Sodium Chloride) 250 mls @ 166.67 mls/hr IV Q12H [facility] Last Admin: 11/16/22 11:59 Dose: 166.67 mls/hr Documented By: LONNIE Piperacillin Sod/Tazobactam (Sod 4.5 gm/ Sodium Chloride) 100 mls @ 200 mls/hr IV Q6H [facility] Last Infusion: 11/16/22 11:20 Dose: 0 mls/hr Documented By: LONNIE Insulin Glargine (Insulin Glargine,Hum.Rec.Anlog 100 Unit/Ml 10 Ml Vial) 20 unit SUBCUT BEDTIME [facility] Last Admin: 11/15/22 20:27 Dose: Not Given Documented By: VEE Non-Admin Reason: low blood sugar Insulin Human Lispro (Insulin Lispro 100 Unit/Ml 3 Ml Vial) 0 unit SUBCUT QIDACHS [facility]; Protocol Last Admin: 11/16/22 12:00 Dose: Not Given Documented By: LONNIE Non-Admin Reason: pt NPO for CT scan Lamotrigine (Lamotrigine 25 Mg Tablet) 25 mg PO BID [facility] Last Admin: 11/16/22 10:12 Dose: 25 mg Documented By: LONNIE Letrozole (Letrozole 2.5 Mg Tablet) 2.5 mg PO BEDTIME [facility] Last Admin: 11/15/22 20:23 Dose: 2.5 mg Documented By: VEE Losartan Potassium (Losartan Potassium 25 Mg Tablet) 25 mg PO DAILY [facility]; Protocol Last Admin: 11/16/22 10:14 Dose: 25 mg Documented By: LONNIE Metoprolol Tartrate (Metoprolol Tartrate 12.5 Mg Halftab) 12.5 mg PO BID [facility]; Protocol Last Admin: 11/16/22 10:13 Dose: 12.5 mg Documented By: LONNIE Morphine Sulfate (Morphine Sulfate Immed Release 15 Mg Tablet) 15 mg PO BID PRN PRN Reason: Pain, Severe (Pain Scale 7-10) Last Admin: 11/16/22 09:54 Dose: 15 mg Documented By: LONNIE Nitroglycerin (Nitroglycerin 0.4 Mg Tab.Subl) 0.4 mg SUBLINGUAL Q5M PRN PRN Reason: Chest Pain Non-Formulary Medication (Lubiprostone [Amitiza]) 8 mcg PO BID [facility] Omeprazole (Omeprazole 20 Mg Capsule.) 20 mg PO BID@0630,1630 [facility] Last Admin: 11/16/22 05:53 Dose: 20 mg Documented By: VEE Ondansetron HCl (Ondansetron Hcl 4 Mg/2 Ml Vial) 4 mg IVPUSH Q8H PRN PRN Reason: Nausea and Vomiting Last Admin: 11/14/22 11:10 Dose: 4 mg Documented By: SD Polyethylene Glycol (Polyethylene Glycol 3350 17 Gm Powd.Pack) 17 gm PO DAILY [facility] Last Admin: 11/16/22 10:14 Dose: 17 gm Documented By: LONNIE Prednisone (Prednisone 5 Mg Tablet) 5 mg PO DAILY [facility] Last Admin: 11/16/22 10:13 Dose: 5 mg Documented By: LONNIE Pregabalin (Pregabalin 200 Mg Capsule) 200 mg PO BEDTIME [facility] Last Admin: 11/15/22 20:23 Dose: 200 mg Documented By: VEE Pregabalin (Pregabalin 150 Mg Capsule) 150 mg PO DAILY [facility] Last Admin: 11/16/22 10:13 Dose: 150 mg Documented By: LONNIE Senna/Docusate Sodium (Sennosides/Docusate Sodium Tablet) 2 tab PO BID [facility] Last Admin: 11/16/22 10:13 Dose: 2 tab Documented By: LONNIE Sodium Chloride (0.9 % Sodium Chloride Flush 3 Ml Syringe) 3 ml IVFLUSH QSHIFT [facility] Last Admin: 11/16/22 10:14 Dose: 3 ml Documented By: LONNIE Sulfasalazine (Sulfasalazine 500 Mg Tablet) 500 mg PO BID [facility] Last Admin: 11/16/22 10:12 Dose: 500 mg Documented By: LONNIE Sumatriptan Succinate (Sumatriptan Succinate 50 Mg Tablet) 50 mg PO DAILY MRX1 PRN PRN Reason: migraine zheng Last Admin: 11/09/22 09:44 Dose: 50 mg Documented By: KEVIN Ticagrelor (Ticagrelor 90 Mg Tablet) 90 mg PO BID [facility] Last Admin: 11/16/22 10:12 Dose: 90 mg Documented By: LONNIE Trazodone HCl (Trazodone Hcl 100 Mg Tablet) 100 mg PO BEDTIME [facility] Last Admin: 11/15/22 20:23 Dose: 100 mg Documented By: VEE Labs CBC & Chem 7: 11/16/22 05:20 11/16/22 05:20 Labs: Laboratory Results - last 24 hr 11/15/22 11/15/22 11/16/22 15:22 19:11 05:20 MCV 90.3 MCH 29.0 MCHC 32.1 RDW 14.2 Plt Count 336 MPV 10.0 Immature Gran % (Auto) 0.9 H Neut % (Auto) 59.6 Lymph % (Auto) 30.0 Whitley % (Auto) 8.1 Eos % (Auto) 1.2 Baso % (Auto) 0.2 Lymph # (Auto) 3.6 [place]ley # (Auto) 1.0 Eos # (Auto) 0.1 Baso # (Auto) 0.0 Abs Immat Gran (auto) 0.11 H Absolute Neuts (auto) 7.1 Absolute Nucleated RBC 0.000 Nucleated RBC % (auto) 0.0 Anion Gap Estim Creat Clear Calc Estimated GFR POC Glucose 203 H 88 Fasting Glucose Calcium Total Bilirubin AST ALT Alkaline Phosphatase Total Protein Albumin 11/16/22 11/16/22 11/16/22 05:20 07:15 11:11 MCV MCH MCHC RDW Plt Count MPV Immature Gran % (Auto) Neut % (Auto) Lymph % (Auto) Whitley % (Auto) Eos % (Auto) Baso % (Auto) Lymph # (Auto) Whitley # (Auto) Eos # (Auto) Baso # (Auto) Abs Immat Gran (auto) Absolute Neuts (auto) Absolute Nucleated RBC Nucleated RBC % (auto) Anion Gap 13 Estim Creat Clear Calc 51.4 Estimated GFR > 60 POC Glucose 116 H 193 H Fasting Glucose 123 H Calcium 9.0 D Total Bilirubin 0.4 AST 14 D ALT 27 Alkaline Phosphatase 72 D Total Protein 5.8 L Albumin 3.5 Assessment and Plan (1) Asthma exacerbation: Status: Acute (2) Influenza A: Status: Acute (3) Abdominal pain: Status: Acute Plan 62yo F with HTN, HLD, CAD s/p PCI, DM2, PAD, ashtma, COPD, steroid-dependent rheumatoid arthritis, fibromyalgia, and bipolar depression presenting with 5 days of flu-like symptoms and found to have influenza A with acute asthma/COPD exacerbation; was doing well up to this morning and developed acute shortness of breath exam consistent with bronchospasm 1.Acute asthma/COPD exacerbation secondary influenza a - continue pulse dose steroids - switch to azithromycin to cover colitis -continue nebs as ordered 2. Abdominal pain (history of diverticulitis) -CT abdomen -switch antibiotic coverage to Zosyn 3.Migraine ZHENG - prn Fioricet 4. CAD - statin, ticagrelor 5.HTN -acceptable control on current therapies -adjust as indicated 6. DM2 - continue outpatient basilar therapies -lispro correctional scale 7.RA - on baseline prednisone; continue sulfasalazine Full code Lovenox Patient will require ongoing hospitalization with increased steroids and empiric IV antibiotics to treat acute bronchospasm Time Spent With Patient Time: Total time managing care of this patient today ____ minutes. Quality Stroke Does the patient have a stroke diagnosis?: No VTE Prior VTE?: No VTE Risk Level:: Medical - moderate - high VTE Device Contraindication: N/A - Device Ordered VTE Drug Contraindication: N/A - Med Ordered
[2022-11-16] MEDS: Dicyclomine HCl 10 MG CAPSULE PO (13:40)
[2022-11-16] MEDS: iohexoL 350 MG/ML 100 ML INFUS..BTL IV ×2 (15:01→15:03)
[2022-11-16] MEDS: Morphine Sulfate 4 MG/ML CARTRIDGE IVPUSH ×2 (16:37→20:28)
[2022-11-16 16:52] LABS: Glucose, Whole Blood 270 mg/dL (60-115)
[2022-11-16 16:53] VITALS: BP 135/72; PULSE 82; RESP 20; TEMP 36.6; O2SAT 96
[2022-11-16] MEDS: Insulin Lispro 100 UNIT/ML 3 ML VIAL SUBCUT (17:17)
[2022-11-16] MEDS: Enoxaparin Sodium 40 MG/0.4 ML SYRINGE SUBCUT (17:17)
--- NOTE | 2022-11-16 19:26 | PM.EVENT ---
Event Note Date of Service: 11/16/22 Event Note: CT abd -ve for acute findings. suggestive of moderate stool burden. continue miralax. will add milk of mag and one time fleet enema Time Spent With Patient Time: Total time managing care of this patient today ____ minutes.
[2022-11-16 19:39] VITALS: BP 138/66; PULSE 86; RESP 20; TEMP 36.4; O2SAT 94
[2022-11-16 20:17] LABS: Glucose, Whole Blood 91 mg/dL (60-115)
[2022-11-16] MEDS: Milk of Magnesia 30 ML ORAL.SUSP PO (20:18)
[2022-11-16] MEDS: Famotidine 20 MG TABLET PO (20:19)
[2022-11-16] MEDS: Letrozole 2.5 MG TABLET PO (20:19)
[2022-11-16] MEDS: traZODone HCL 100 MG TABLET PO (20:19)
[2022-11-16] MEDS: Pregabalin 200 MG CAPSULE PO (20:19)
[2022-11-16] MEDS: Insulin Glargine,Hum.rec.anlog 100 UNIT/ML 10 ML VIAL 20 UNIT SUBCUT (20:28)
[2022-11-16] MEDS: Sodium Phosphate,Mono-Dibasic 133 ML ENEMA PR (21:13)
[2022-11-17 04:00] VITALS: BP 106/65; PULSE 79; RESP 18; TEMP 37.1; O2SAT 96
[2022-11-17] MEDS: Piperacillin Sodium/Tazobactam 4.5 GM in 0.9 % Sodium Chloride 100 ML IV ×2 (04:18→10:15)
[2022-11-17 04:27] LABS: Glucose, Whole Blood 75 mg/dL (60-115)
[2022-11-17] MEDS: Omeprazole 20 MG CAPSULE.DR PO (05:32)
[2022-11-17] MEDS: Morphine Sulfate 4 MG/ML CARTRIDGE IVPUSH (06:34)
[2022-11-17 07:49] LABS: Glucose, Whole Blood 127 mg/dL (60-115)
[2022-11-17 08:00] VITALS: BP 108/61; PULSE 77; RESP 18; TEMP 36.8; O2SAT 94
[2022-11-17] MEDS: Aspirin Enteric Coated 81 MG TABLET.DR PO (08:20)
[2022-11-17] MEDS: Atorvastatin Calcium 80 MG TABLET PO (08:20)
[2022-11-17] MEDS: guaiFENesin LA 600 MG TAB.ER.12H PO (08:20)
[2022-11-17] MEDS: Ticagrelor 90 MG TABLET PO (08:20)
[2022-11-17] MEDS: Sennosides/Docusate Sodium TABLET 2 TAB PO (08:20)
[2022-11-17] MEDS: Pregabalin 150 MG CAPSULE PO (08:20)
[2022-11-17] MEDS: Losartan Potassium 25 MG TABLET PO (08:20)
[2022-11-17] MEDS: lamoTRIgine 25 MG TABLET PO (08:20)
[2022-11-17] MEDS: predniSONE 5 MG TABLET PO (08:20)
[2022-11-17] MEDS: sulfaSALAzine 500 MG TABLET PO (08:20)
[2022-11-17] MEDS: Metoprolol Tartrate 12.5 MG HALFTAB PO (08:20)
[2022-11-17] MEDS: 0.9 % Sodium Chloride Flush 3 ML SYRINGE IVFLUSH (08:21)
[2022-11-17] MEDS: polyethylene glycoL 3350 17 GM POWD.PACK PO (08:21)
--- NOTE | 2022-11-17 08:56 | MHC.CM.PN ---
Addendum entered by Airam Gaines 11/17/22 15:22: DC SUMMARY AND F2F SENT TO [facility]IA [employer] Addendum entered by Airam Gaines 11/17/22 09:58: [facility] HAS RESPONDED AND INDICATED THEY WILL ACCEPT REFERRAL PENDING INSURANCE VERIFICATION Original Note: PT TO DC HOME TODAY AND WILL NEED [facility] FOR SN AND PT REFERRAL SENT TO [facility] AWAITING RESPONSE
[2022-11-17 11:20] LABS: Glucose, Whole Blood 159 mg/dL (60-115)
--- NOTE | 2022-11-17 11:26 | P.DS_ITS ---
DS: Providers Provider Date of Service: 11/17/22 Date of admission: 11/08/22 18:22 Date of discharge: 11/17/22 Primary care physician: Adela Wasserman MD DS: Diagnosis Discharge Diagnosis (1) Asthma exacerbation: Status: Acute (2) Influenza A: Status: Acute (3) Abdominal pain: Status: Acute DS: Summary Hospital Course Hospital Course: 62yo F with HTN, HLD, CAD s/p PCI, DM2, PAD, ashtma, COPD, steroid-dependent rheumatoid arthritis, fibromyalgia, and bipolar depression who presents to the ED with 5 days of fever to 102, chills, malaise, myalgias, laryngitis, dry cough, dyspnea, and wheeze.? She was just seen by her PCP yesterday and prescribed levofloxacin.? Here in the ED, she was not hypoxic but was tachycardic and tachypneic, as high as 38.? She was given multiple nebulized albuterol/ipratropium treatments along with IV methlyprednisolone, IV magnesium sulfate, and IV ceftriaxone.? CXR was negative for infiltrate.? However, influenza A PCR was positive.? Lactate as 4.5.? She was given PO oseltamivir.? Due to persistent respiratory distress, she was referred to the hospitalist team for admission. Hospital course Patient admitted to general medical floor started on Tamiflu. She was also started on meth full prednisolone for wheezing. She had a very slow recovery; continue to receive pulse dose. Patient will be discharged to complete a course of prednisone taper and follow-up with her PCP in 1 week Time Spent with Patient Time attestation: Total time managing care of this patient today ____ minutes. Discharge coordination time: Greater than 30 minutes Quality: Safe Use of Opioids Does Pt have an Active Cancer Diagnosis on the Problem List?: No Quality: Stroke Does the patient have a stroke diagnosis?: No Physical Exam Vital Signs: Vital Signs: Last Vital Signs Temp 98.3 F 11/17/22 08:00 Pulse 77 11/17/22 08:00 Resp 18 11/17/22 08:00 BP 108/61 11/17/22 08:00 Pulse Ox 94 11/17/22 08:00 O2 Del Method 11/17/22 08:00 BMI result Body Mass Index 26.3 Const: Other: Awake alert resting comfortably Resp: Other: Diminished at bases bilaterally with dense expiratory wheezes throughout. Scant rhonchi that clear with cough Cardio: Other: No S4; positive S1-S2; no S3 murmurs rubs or gallops GI: Other: Mild tenderness bilateral lower quadrants without rebound. Bowel sounds quiet Extrem: Other: No edema bilaterally DS: Data Data Completed and Pending Labs on day of discharge: Laboratory Results - last 24 hr 11/16/22 11/16/22 11/17/22 16:44 20:10 04:23 POC Glucose 270 H 91 75 11/17/22 11/17/22 07:32 11:07 POC Glucose 127 H 159 H Discharge Plan Discharge Anticipated Discharge Date/Time: 11/17/22 11:20 Patient Disposition: Home, Self-Care Discharge Diagnosis: Asthma exacerbation Referrals: Adela Gipson MD [Primary Care Provider] - 1 Week Discharge Medications: New ipratropium-albuterol 0.5 mg-3 mg(2.5 mg base)/3 mL Solution For Nebulization 3 ml inhalation RQ4H WHILE AWAKE Qty: 180 0RF prednisone 10 mg tablet See Rx Instructions .Route .COMPLEX Qty: 45 0RF Rx Instructions: 10 mg orally; 5 tabs p.o. daily x3 days; 4 tabs p.o. daily x3 days; 3 tabs daily x3 days; 2 tabs daily x3 days; 1 tab daily x3 days Continued (DME) pen needle, diabetic [Comfort EZ Pen [place]] 31 gauge x 5/16 needle See Rx Instructions .ROUTE .MEDSUPPLY Qty: 200 11RF Rx Instructions: Use 1 pen needle 6 times a day (DME) lancets [FreeStyle Lancets] 28 gauge misc See Rx Instructions .Route Qty: 100 3RF Rx Instructions: Use 1 lancet once a day lamotrigine 25 mg tablet 25 mg PO BID 90 Days Qty: 180 1RF lubiprostone [Amitiza] 8 mcg capsule 8 mcg PO BID 30 Days Qty: 60 3RF trazodone 100 mg tablet 100 mg PO BEDTIME 90 Days Qty: 90 0RF insulin aspart U-100 [Novolog Flexpen U-100 Insulin] 100 unit/mL (3 mL) insulin pen 2 - 10 unit subcut TIDAC 30 Days Qty: 15 11RF Protocol: Insulin Correction Scale Less than or equal to 110 ---- Give (units): 0 111 to 150 Give (units): 0 151 to 200 Give (units): 2 201 to 250 Give (units): 4 251 to 300 Give (units): 6 301 to 350 Give (units): 8 Greater than 350 Give (units): 10 Call MD if Blood Glucose > : 350 Rx Instructions: Via sliding scale dicyclomine 10 mg capsule 10 mg PO TID PRN (Reason: for abdominal pain) 30 Days Qty: 30 1RF famotidine 20 mg tablet 20 mg PO BEDTIME 90 Days Qty: 90 1RF losartan 25 mg tablet 25 mg PO DAILY Qty: 90 0RF pregabalin [Lyrica] 200 mg capsule 200 mg PO BEDTIME Qty: 30 3RF fdekatolwb-htxscsscjnskt-pado 50-325-40 mg tablet 1 tab PO Q6H PRN (Reason: pain) 30 Days Qty: 30 0RF ipratropium-albuterol 0.5 mg-3 mg(2.5 mg base)/3 mL solution for nebulization 3 ml inhalation Q6H PRN (Reason: wheezing) Qty: 180 2RF pantoprazole 40 mg tablet,delayed release (DR/EC) 40 mg PO BID 90 Days Qty: 180 0RF ondansetron 4 mg tablet,disintegrating 4 mg PO Q8H PRN (Reason: nausea and vomiting) Qty: 14 0RF albuterol sulfate 90 mcg/actuation aerosol powdr breath activated 2 inh inhalation Q4-6H PRN (Reason: shortness of breath or wheezing) Qty: 1 0RF morphine 15 mg tablet 15 mg PO BID PRN (Reason: pain) Qty: 8 0RF Rx Instructions: Partial Fill upon patient request. prednisone 5 mg tablet 1 tab PO DAILY aspirin 81 mg Tablet,Delayed Release (Dr/Ec) 81 mg PO DAILY metoprolol tartrate 25 mg tablet 0.5 tab PO BID sulfasalazine 500 mg tablet 500 mg PO BID azithromycin 250 mg tablet 250 mg PO MOWEFR@0900 pregabalin 150 mg capsule 150 mg PO DAILY Trulicity 1.5 mg/0.5 mL pen injector 1.5 mg subcut TH@0900 letrozole 2.5 mg tablet 2.5 mg PO BEDTIME nitroglycerin 0.4 mg tablet, sublingual 0.4 mg sublingual Q5M PRN (Reason: Chest Pain) atorvastatin 80 mg tablet 80 mg PO DAILY 90 Days Qty: 90 1RF Rx Instructions: patient lost recent RX, please fill this as emergency RX this one time Brilinta 90 mg tablet 90 mg PO BID 90 Days Qty: 180 1RF Rx Instructions: Please fill Rx today, patient lost previous RX, fill as emergency this one time (DME) FreeStyle Lite Strips Strip MISCELLANEOUS DAILY Qty: 100 1RF Rx Instructions: Use 1 test strip three times a day insulin degludec [Tresiba FlexTouch U-100] 100 unit/mL (3 mL) insulin pen 20 unit subcut BEDTIME 90 Days Qty: 18 1RF Discharge Orders: Discharge Order (Routine); Ordered 11/17/22 Ordered By: Mario Hollis Diet: Advance to usual diet Activity on Discharge: As tolerated Stand Alone Forms: Patient Portal Discharge page Care Plan Goals: Complete course of prednisone as ordered. Resume all pre-hospital meds Health Concerns: Follow-up with PCP in 2 weeks Plan of Treatment: Quit smoking Assessment: See discharge summary
[2022-11-17] MEDS: Insulin Lispro 100 UNIT/ML 3 ML VIAL SUBCUT (11:57)
--- NOTE | 2022-11-17 15:19 | W.MHC.F2F ---
Service Date Service Date: 11/17/22 Encounter Date of encounter: 11/17/22 Encounter: Acute hospitalization Reasons for Services Signs and symptoms assessed: Monitor respiratory status response to therapies Reason for senior care: medication management, medication treatment and other (Monitor pulmonary status and saturation) Homebound: Leaving the home is medically contraindicated at this time without the asist of a device and/or another person due th the listed conditions above and below. Reason homebound: unsteady gait / fall risk, shortness of breath at rest and unable to drive Certification: Based on the above findings, I certify that this patient is confined to the home and needs intermittent senior care care, physical therapy and/or speech therapy, or continues to need occupational therapy. The patient is under my care, and I have initiated the establishment of the plan of care. The patient will be followed by a physician who will periodically review the plan of care. Time Spent With Patient Time: Total time managing care of this patient today ____ minutes.
--- NOTE | 2022-11-26 10:27 | P.CDIR_ITS ---
Documented by User: Jennifer Kessler RN 11/26/22 10:39 Retrospective Query PHYSICIAN'S DOCUMENTATION REQUEST Date of Query: 11/26/22 1027 Patient Name: Sosa Joiner Admit Date: 11/08/22 Dear Doctor, A review of the medical record indicates additional documentation may be needed. Please review below and update the documentation accordingly. Clinical Indicators: Documentation on progress notes dated 11/08/23-11/12/23 included the diagnosis of viral sepsis. If you agree with this diagnosis please confirm and amend discharge summary. Risk Factors/Clinical Indicators/Treatments POA/RESOLVED/TREAT/RULE OUT Per provider progress notes 11/08-11-12: viral sepsis - due to influenza; no evidence of bacte rial superinfection; PCT low Other indicators: -(+) leukocytosis (WBCs on 11/22 18.7) -lactic acid on 11/08: 4.5 -Zosyn administered -(+) tachypnea (RR on 11/08 38) -(+) tachycardia (HR on 11/08 126) Based on the above information and the recognized standard for sepsis, could you please clarify in the Progress Notes if this diagnoses is still accurate and reflective of the patient's condition to ensure quality of the medical record. * Sepsis is/was present and is a clinical diagnosis based on (please include this additional support in the medical record) * After study (the condition) has been ruled out * Other (please specify) * Unable to determine Use of terms such as suspected, likely, concern for, or probable (associated with a specific diagnosis that is being evaluated, monitored, or treated as if it exists) are acceptable and can be coded in the inpatient setting, when documented at the time of discharge. Thank you, Jennifer Kessler, , RN, CCRN Extension: [phone] Please use your independent medical judgment in providing your response. THIS QUERY IS PART OF THE PERMANENT MEDICAL RECORD Documented by User: Mario Hollis DO 12/09/22 12:48 Retrospective Query Provider Response: Other (After studies sepsis has been ruled out)
== END 2022-11-17 13:38 | disposition home or self-care (01) | DRG 194 ==
LOC: HO.ED 17:15 → HO.S3 11-09 03:32 → HO.EDOVER 11-12 14:55
PROVIDERS: Physician Assistant Medical; Admitting Provider Family Medicine; Emergency Provider Emergency Medicine Emergency Medical Services; PCP Internal Medicine; Visit Provider Hospitalist
DX: J10.1 Influenza due to other identified influenza virus with other respiratory manifestations (principal); E87.20 Acidosis, unspecified; J44.1 Chronic obstructive pulmonary disease with (acute) exacerbation; J45.901 Unspecified asthma with (acute) exacerbation; F31.9 Bipolar disorder, unspecified; M79.7 Fibromyalgia; E11.51 Type 2 diabetes mellitus with diabetic peripheral angiopathy without gangrene; Z86.73 Personal history of transient ischemic attack (TIA), and cerebral infarction without residual deficits; G43.909 Migraine, unspecified, not intractable, without status migrainosus; E11.65 Type 2 diabetes mellitus with hyperglycemia; M05.9 Rheumatoid arthritis with rheumatoid factor, unspecified; I25.10 Atherosclerotic heart disease of native coronary artery without angina pectoris; T48.6X5A Adverse effect of antiasthmatics, initial encounter; Z88.8 Allergy status to other drugs, medicaments and biological substances; Z79.82 Long term (current) use of aspirin; Z79.52 Long term (current) use of systemic steroids; Z79.899 Other long term (current) drug therapy
CPT/HCPCS: 0241U; 36415; 71045; 71046; 74177; 80053; 81003; 82947; 83605; 83735; 84145; 84484; 85025; 85027; 85610; 87040; 93005; 94640; 97116; 97161; 99218; 99285; J0696; J1650; J2270; J2405; J2543; J2920; J2930; J3475; Q9967

== ENCOUNTER 2022-11-22 13:24 | Emergency (ER) | payer MEDICARE, MEDICAID, SELFPAY ==
[2022-09-19 10:26] VITALS: BP 100/64; BP 102/48; BP 110/70; BMI 25.5
--- NOTE | ~2022-11-22 | XR_ITS ---
EXAMINATION: XR CHEST CLINICAL INFORMATION: Shortness of breath with coughing and wheezing. COMPARISON: November 13, 2022 and November 12, 2022 TECHNIQUE: 2 views of the chest were obtained. FINDINGS: No significant abnormality is noted involving the heart, lungs, mediastinum, bony thorax or soft tissues. XR/XR chest 2V IMPRESSION: No acute disease.
[2022-11-22 13:51] VITALS: BP 185/98; PULSE 93; O2SAT 98
[2022-11-22 15:18] VITALS: BP 158/91; PULSE 99; RESP 20; TEMP 37; O2SAT 98; BMI 22.9
--- NOTE | 2022-11-22 15:49 | ECG_ITS ---
Test Reason : SOB Blood Pressure : / mmHG Vent. Rate : 081 BPM Atrial Rate : 081 BPM P-R Int : 138 ms QRS Dur : 088 ms QT Int : 344 ms P-R-T Axes : 079 075 068 degrees QTc Int : 399 ms Normal sinus rhythm Normal ECG When compared with ECG of 08-NOV-2022 16:00, No significant change was found Referred By: Porsha Araujo Electronically Signed By:MICHELL MONTES
[2022-11-22 16:00] VITALS: BP 141/74; PULSE 87; RESP 18; O2SAT 100
[2022-11-22 16:13] LABS: MANUAL DIFF FLAG NO
[2022-11-22] MEDS: 0.9 % Sodium Chloride 1,000 ML 999 ML IVCONT (16:14)
[2022-11-22 16:15] LABS: Basophils Absolute Auto 0.1 X10*3/uL (0.0-0.2); Basophils Percent Auto 0.3 % (0-2); Eosinophils Percent Auto 0.1 % (0-4); Hematocrit 40.8 % (37.0-47.0); Hemoglobin 13.1 g/dl (12.0-16.0); Imm Gran Abs Auto 0.19 X10*3/uL (0.00-0.03); Lymphocytes Absolute Auto 4.6 X10*3/uL (1.2-4.9); Lymphocytes Percent Auto 24.6 % (20-40); Mean Corpuscular HGB Conc 32.1 g/dl (31.0-35.0); Mean Corpuscular Hemoglobin 28.3 pg (27.0-33.0); Mean Corpuscular Volume 88.1 fL (80.0-98.0); Mean Platelet Volume 10.1 fL (9.4-12.3); Monocytes Percent Auto 5.2 % (2-11); Neutrophils Absolute Auto 12.9 x10*3/uL (2.0-8.3); Neutrophils Percent Auto 68.8 % (45-73); Platelet Count 419 X10*3/uL (160-400); Red Blood Count 4.63 X10*6/uL (4.20-5.50); Red Cell Distribution Width 13.8 % (11.0-16.0); White Blood Count 18.7 X10*3/uL (4.8-10.8)
[2022-11-22 16:16] LABS: Influenza A PCR NEGATIVE (Negative); Influenza B PCR NEGATIVE (Negative); Resp Syncy Virus RNA Qual PCR NEGATIVE (Negative); SARS COV2 PCR INHOUSE NEGATIVE (Negative)
[2022-11-22 16:22] LABS: INTERNATIONAL NORM RATIO 1.1 (0.9-1.1); Prothrombin Time 12.5 SEC (10.0-13.1)
[2022-11-22] MEDS: Ketorolac Tromethamine 30 MG/ML VIAL IVPUSH (16:23)
[2022-11-22] MEDS: methylPREDNISolone Sod Succ 125 MG/2 ML VIAL IVPUSH (16:24)
[2022-11-22] MEDS: Magnesium Sulfate/H2O 2 GM/50 ML PIGGYBACK IV (16:25)
[2022-11-22 16:40] LABS: Lactic Acid 1.5 mmol/L (0.5-2.0)
[2022-11-22 16:45] LABS: Alanine Aminotransferase 28 U/L (0-31); Albumin Level 3.9 g/dL (3.5-5.0); Alkaline Phosphatase 76 U/L (39-117); Anion Gap 13 (12-20); Aspartate Amino Transferase 24 U/L (5-31); Bilirubin Total 0.2 mg/dL (0.0-1.0); Blood Urea Nitrogen 16 mg/dL (9-16); Carbon Dioxide 28 mmol/L (22-29); Chloride 104 mmol/L (96-108); Creatinine Clr Calc Pharmacy 51.9; Estimated Glomerular Filt Rate > 60; Glucose Random 128 mg/dL (60-115); Magnesium 1.9 mg/dL (1.6-2.6); Potassium 4.1 mmol/L (3.3-5.1); Sodium 141 mmol/L (135-145)
[2022-11-22 16:46] LABS: Troponin-I High Sensitivity 6.2 ng/L (<3.5-17.0)
[2022-11-22] MEDS: Albuterol Sulfate 7.5 MG, Albuterol Sulfate (0.083%) 2.5 MG 10 MG INHALE (16:48)
[2022-11-22 16:49] VITALS: RESP 18; O2SAT 97
[2022-11-22 16:49] LABS: B Type Natriuretic Peptide 36 pg/mL (<100)
[2022-11-22] MEDS: Ipratropium Bromide 0.5 MG/2.5 ML SOLUTION INHALE (16:49)
[2022-11-22] MEDS: cefTRIAXone sodium 2 GM in 0.9 % Sodium Chloride 50 ML IV (16:51)
--- NOTE | 2022-11-22 16:53 | PC.NURSE ---
pt a&ox3, vss, 22G IV placed left forearm, labs draw, cultures obtained, medicated per provider order, Mg infused, ivf running. no new orders at this time.
--- NOTE | 2022-11-22 17:28 | PC.NURSE ---
pt continues to report headache/jaw pain. provider notified.
[2022-11-22] MEDS: Butalb/Acetamin/Caff 50/325/40 TABLET 1 TAB PO (17:41)
[2022-11-22 17:42] VITALS: BP 129/60; PULSE 102; RESP 18; O2SAT 98
--- NOTE | 2022-11-22 17:44 | PC.NURSE ---
pt medicated for 9/10 migraine.
--- NOTE | 2022-11-22 18:09 | ED_ITS ---
HPI - Asthma General Chief Complaint: Upper Respiratory Symptoms Stated Complaint: FLU LIKE SYMPTOMS Time Seen by Provider: 11/22/22 15:43 Source: patient Mode of arrival: ambulatory History of Present Illness HPI Narrative: 62-year-old female with a past medical history of hypertension, hyperlipidemia, CAD status post stents in December 2021, colitis, diabetes and asthma? who is a current daily smoker, history of breast cancer, reactive airway disease, rheumatoid arthritis, osteoporosis, fibromyalgia, anxiety and depression who is presenting to the ED via EMS with complaints of worsening URI/asthma symptoms since yesterday. She was seen here and admitted on 11/08/2022 in and discharged on 11/17/2022 with a course of steroids reports she took the steroids as prescribed and was feeling better up until yesterday. While she was in the hospital she also received antibiotics and Tamiflu due to she was positive for influenza A. She reports she has been using her albuterol inhaler nebulizers at home and no symptomatic relief. She reports headaches, chills, nasal congestion/rhinorrhea, cough with sputum production, shortness of breath and wheezing she also noted to have a low blood sugar of 44 today by her [facility] nurse and they sent her here for further evaluation treatment. She denies any measured fevers, dizziness, neck pain/stiffness, sore throat, chest pain, dyspnea on exertion, orthopnea, palpitations, paresthesias, n ausea/vomiting/diarrhea constipation, black or bloody stools, abdominal pain, back pain, dysuria, hematuria, abnormal vaginal discharge, lower extremity edema or calf tenderness, recent travel or any sick contacts that she is aware of or any other symptoms complaints or concerns at this time. MD complaint: asthma attack , shortness of breath and wheezing Onset (ago): day(s) (2) Severity: severe and worse than usual Context: none known Associated symptoms: productive cough Asthma History: history of frequent attacks, history of prior ED visit and followed by specialist Treatments Prior to Arrival: inhaled bronchodilator Related Data Current Asthma Therapy: inhaled bronchodilator and recent oral steroid Home Medications Medication Instructions Recorded Confirmed nitroglycerin 0.4 mg sublingual 0.4 mg sublingual Q5M PRN Chest 01/03/22 11/08/22 tablet Pain aspirin 81 mg tablet,delayed 81 mg PO DAILY 11/08/22 11/08/22 release azithromycin 250 mg tablet 250 mg PO MOWEFR@0900 for asthma 11/08/22 11/08/22 dulaglutide 1.5 mg/0.5 mL 1.5 mg subcut TH@0900 11/08/22 11/08/22 subcutaneous pen injector (Trulicity) letrozole 2.5 mg tablet 2.5 mg PO BEDTIME 11/08/22 11/08/22 metoprolol tartrate 25 mg tablet 0.5 tab PO BID 11/08/22 11/08/22 prednisone 5 mg tablet 1 tab PO DAILY asthma 11/08/22 11/08/22 pregabalin 150 mg capsule 150 mg PO DAILY 11/08/22 11/08/22 sulfasalazine 500 mg tablet 500 mg PO BID 11/08/22 11/08/22 Previous Rx's Medication Instructions Recorded atorvastatin 80 mg tablet 80 mg PO DAILY 90 days #90 tabs 02/06/22 ticagrelor 90 mg tablet (Brilinta) 90 mg PO BID 90 days #180 tabs 02/06/22 lancets 28 gauge (FreeStyle #100 ea 06/07/22 Lancets) pen needle, diabetic 31 gauge x #200 ea 06/07/2204/02 (Comfort EZ Pen [place]) lamotrigine 25 mg tablet 25 mg PO BID 90 days #180 tabs 06/11/22 ondansetron 4 mg disintegrating 4 mg PO Q8H PRN nausea and 06/29/22 tablet vomiting #14 tabs lubiprostone 8 mcg capsule 8 mcg PO BID 30 days #60 caps 07/18/22 (Amitiza) trazodone 100 mg tablet 100 mg PO BEDTIME 90 days #90 tabs 08/02/22 Novolog FlexPen U-100 Insulin 100 2 - 10 unit subcut TIDAC 30 days 08/28/22 unit/mL (3 mL) subcutaneous #15 mL (insulin aspart U-100) dicyclomine 10 mg capsule 10 mg PO TID PRN for abdominal 08/28/22 pain 30 days #30 caps famotidine 20 mg tablet 20 mg PO BEDTIME 90 days #90 tabs 09/07/22 losartan 25 mg tablet 25 mg PO DAILY #90 tabs 09/07/22 blood sugar diagnostic (FreeStyle #100 ea 09/26/22 Lite Strips) pregabalin 200 mg capsule (Lyrica) 200 mg PO BEDTIME #30 caps 10/01/22 vhrmdtxnnu-ilhpglutqnxqn-sxvdamrf 1 tab PO Q6H PRN pain 30 days #30 10/02/22 50 mg-325 mg-40 mg tablet tabs ipratropium 0.5 mg-albuterol 3 mg 3 ml inhalation Q6H PRN wheezing 10/17/22 (2.5 mg base)/3 mL nebulization #180 mL soln pantoprazole 40 mg tablet,delayed 40 mg PO BID 90 days #180 tabs 10/18/22 release albuterol sulfate 90 mcg/actuation 2 inh inhalation Q4-6H PRN 10/24/22 breath activated powder inhaler shortness of breath or wheezing #1 ea morphine 15 mg immediate release 15 mg PO BID PRN pain #8 tabs 10/24/22 tablet insulin degludec 100 unit/mL (3 20 unit (0.2 mL) subcut BEDTIME 90 11/07/22 mL) subcutaneous pen (Tresiba days #18 mL FlexTouch U-100 insulin) ipratropium 0.5 mg-albuterol 3 mg 3 ml inhalation RQ4H WHILE AWAKE 11/13/22 (2.5 mg base)/3 mL nebulization #180 mL soln prednisone 10 mg tablet See Rx Instructions .Route 11/17/22 .COMPLEX #45 tabs albuterol sulfate 0.63 mg/3 mL 0.63 mg (3 mL) inhalation QID PRN 11/22/22 solution for nebulization shortness of breath or wheezing #75 mL albuterol sulfate 90 mcg/actuation 1 inh inhalation QID PRN shortness 11/22/22 aerosol inhaler of breath or wheezing #8.5 grams azithromycin 250 mg tablet See Rx Instructions PO .COMPLEX #6 11/22/22 tabs cefuroxime axetil 500 mg tablet 500 mg PO BID 7 days #14 tabs 11/22/22 codeine 10 mg-guaifenesin 100 mg/5 5 ml PO Q6H PRN cold symptoms #120 11/22/22 mL oral liquid (Guaifenesin AC) mL prednisone 20 mg tablet 40 mg PO DAILY inflammation 5 days 11/22/22 #10 tabs Allergies Allergy/AdvReac Type Severity Reaction Status Date / Time dog dander [DOGS] Allergy Intermediate Respiratory Verified 11/07/22 15:36 distress ibuprofen [Ibuprofen] Allergy Intermediate STOMACH Verified 11/07/22 15:36 UPSET, abdominal pain, nausea and vomiting shellfish derived Allergy Intermediate Hives Verified 11/07/22 15:36 etanercept [From Enbrel] AdvReac Intermediate Facial Verified 11/07/22 15:36 Swelling metformin AdvReac Intermediate diarrhea Verified 11/07/22 15:36 metronidazole [From FLAGYL] AdvReac Intermediate DIARRHEA Verified 11/07/22 15:36 prednisone AdvReac Intermediate hallucinations, Verified 11/07/22 15:36 higher than 20 Review of Systems Review of Systems: Constitutional : denies med noncompliance, no history of PE or DVT, denies recent travel, No Fever, + Chills ENT/Mouth : No Hoarseness, No sore throat, + Rhinorrhea, + Nasal congestion, No Sinus Pressure, No Ear Pain, No stridor, Eyes: No Redness, No Discharge, No Vision Changes Cardiovascular : No Chest Pain, + SOB, No Dyspnea on Exertion, No Edema, no pleurisy, Respiratory : + Cough, + wheezing, + Sputum, no stridor, no hemoptysis, Gastrointestinal : No Nausea, No Vomiting, No Diarrhea, No abdominal Pain Genitourinary : No Dysuria, No Hematuria Musculoskeletal : No joint pain/swelling, + Myalgias Extremities: no extremity swelling /pain Skin : No rash, no itching, no swelling Neuro : No Weakness, No Numbness, No Headache, No Dizziness, No Paresthesias Psych : No anxiety, depression Heme/Lymph: No Bruising, No Bleeding Endocrine : No Polyuria, No Polydipsia Yes all other systems are reviewed and are negative [facility] Past Medical History Attestation statement: The following information was validated with the patient. Source: old records reviewed and nursing notes reviewed Medical History Allergic rhinitis Anxiety Atherosclerotic cardiovascular disease Bipolar 1 disorder, depressed Bloody diarrhea Breast pain, right Bronchial asthma Colitis COPD (chronic obstructive pulmonary disease) COPD exacerbation Cough CVA (cerebral vascular accident) Depression Diabetes type 2, uncontrolled Dyslipidemia Fibromyalgia HLD (hyperlipidemia) Hospital discharge follow-up HTN (hypertension) Hyperkalemia Hyperlipidemia LDL goal <100 Hyperparathyroidism Hypertension Hypothyroid IDDM (insulin dependent diabetes mellitus) Infiltrating ductal carcinoma of left breast, stage 2 Insomnia Irritable bowel Osteoporosis PAD (peripheral artery disease) Rash Reactive airways dysfunction syndrome Restrictive airway disease Seropositive rheumatoid arthritis T2DM (type 2 diabetes mellitus) Thyroid nodule Vitamin D deficiency Surgical History H/O cardiac catheterization H/O: hysterectomy History of bronchoscopy History of bunionectomy of both great toes History of colonoscopy History of esophagogastroduodenoscopy (EGD) History of lumpectomy of left breast History of pubovaginal sling History of tubal ligation Hx of endoscopy Family History Family History Mother Diabetes HTN (hypertension) Uterus cancer Malignant tumor of head Breast cancer Father Diabetes HTN (hypertension) CVD (cardiovascular disease) Heart problem Maternal Aunt Breast cancer Brother Myocardial infarction S/P CABG x 4 Family/Other FH: mental illness Family/Other Lung cancer Other Mental health disorder Social History Social History Household Members: Other Household Members Other:: sister Housing: Apartment Are you a primary special needs caregiver to a significant other at home: No Do you presently have visiting nurse or other home services: Yes Alcohol intake: never Patient Tobacco Use Status: Current everyday Tobacco user Tobacco use type: Cigarette Cigarettes Per Day: 2 Years Smoked: 50 +/- e-Cigarette/Vaping Use: Never Used Second Hand Smoke Exposure: No Advance Directives: Yes Advance Directives on File: Yes Advance Directives Date on File: 12/22/21 service: No Current occupational status: disabled Current occupation: rt handed Cognitive needs: No Hearing needs: No Vision needs: Yes Physical Exam Vital Signs: Vital Signs: Last Vital Signs Temp 98.6 F 11/22/22 15:18 Pulse 102 H 11/22/22 17:42 Resp 18 11/22/22 17:42 BP 129/60 11/22/22 17:42 Pulse Ox 98 11/22/22 17:42 O2 Del Method 11/22/22 17:42 BMI result Body Mass Index 22.9 vital signs have been reviewed as normal and appeared to be correct. Blood pressure 159/91. Heart rate normal. Respiration rate normal. Temperature n ormal. Oxygen saturation normal. Appearance: Alert. Oriented X3. No acute distress. Head: Normal external exam. Normocephalic. Atraumatic. Eyes: PERRLA. EOMI. Conjunctiva and sclera normal. Eyelids normal. ENT: EAC normal. TM's Normal. Pharynx normal. Uvula midline. Moist mucous membranes. No lesions/ulcerations or masses noted on the tongue. Normal voice. No trismus noted. No drooling noted. No muffled voice noted. Neck: Normal inspection. Neck supple. FROM. No adenopathy. Thyroid Normal. No tracheal deviation noted. No crepitus is noted. No meningeal signs. No neck mass noted. No signs of trauma noted. CVS: Normal heart rate and rhythm. Heart sound normal. Pulses normal throughout. No murmurs/rales/gallops. Respiratory: In acute respiratory distress with decreased breath sounds and inspiratory and expiratory wheezing throughout with rhonchi noted. No rales noted. Chest is nontender. No crepitus is noted. Patient not noted to have any accessory muscle usage noted or tracheal tugging. No stridor is noted. No signs of trauma noted. Abdomen: Soft and nontender. Nondistended. No guarding. No rigidity. Bowel sounds normal in all 4 quadrants. No distention noted. No organomegaly noted. No visible injury noted. No rebound tenderness. Negative Rovsing sign. Negative obturator's sign. Negative psoas sign. Negative Lopez sign. Back: No CVA tenderness. Full range of motion noted. Nontender. No signs of trauma. Patient neuro intact bilaterally and distally on all 4 extremities. Patient's reflexes intact bilaterally and distally on all 4 extremities. No rashes/lesion/induration/fluctuance or signs of infection noted. Skin: Skin warm and dry. Normal skin color. Normal skin turgor. No rashes/lesions/lacerations noted. Extremities: No lower extremity edema. No calf tenderness is noted. Extremities exhibit normal range of motion and nontender. Neuro: Oriented X 3. No motor deficit. No sensory deficit. Reflexes normal. Normal steady gait. No focal neuro deficits noted. CN's II-XII intact bilaterally? Vascular: + radial pulses/+ 2 distal pedal pulses/+2 dorsalis pedis b/l. Normal cap refill. No cyanosis noted to upper extremity nails and lower extremity toes nails. Course Course Course Narrative: On exam patient is in acute respiratory distress with decreased breath sounds and inspiratory and expiratory wheezing throughout.? With rhonchi noted.? No rales noted. CV RRR.? There is no lower extremity edema or calf tenderness noted.? Vital signs are stable within normal limits including oxygen at 98% on room air. This patient presents with dyspnea, most likely secondary to asthma exacerbation. Differential diagnosis includes bronchospasm with bronchitis or pneumonia. Presentation not consistent with acute cardiac etiologies to include ACS, CHF, pericardial effusion / tamponade . Presentation not consistent with acute respiratory etiologies to include acute PE, pneumothorax , allergic etiologies. Presentation also not consistent with non-cardiopulmonary causes to include toxidromes, metabolic etiologies such as acidemia or electrolyte derangements, sepsis, neurologic causes (i.e. demyelinating diseases). Labs obtained patient leukocytosis of 18,000 although this is most likely related to the patient was recently on steroids therefore this is most likely steroid related. Platelet count 419. Random glucose 128 here. Otherwise all other labs are within normal limits. Patient negative for COVID/RSV/flu at this time. EKG is normal sinus rhythm no acute ischemic change are noted with ventricular rate of 81 with a normal NE interval normal QRS duration normal QT/QTC see interval. No acute ischemic change are noted. Similar compared to prior EKGs. Chest x-ray within normal limits no acute processes noted. Patient received an hour long breathing treatment, 125 mg of Solu-Medrol, 2 g of magnesium and a L of IV fluids and she reports she feels much better. I did offer admission although patient reports she would rather go home at this time and she will return if she has any new or worsening symptoms. Therefore at this time will DC home with antibiotics and steroids instructions return if any new or worsening symptoms follow up with primary care provider. Patient understands agrees with this plan. Medications Administered Discontinued Medications Generic Name Dose Route Start Last Admin Trade Name Freq PRN Reason Stop Dose Admin Acetaminophen/Butalbital/Caffeine 1 tab 11/22/22 17:32 11/22/22 17:41 Butalb/Acetamin/Caff 50/325/40 Tablet PO 11/22/22 17:33 1 tab ONCE ONE Administration Albuterol Sulfate 7.5 mg/ 10 mg 11/22/22 16:45 11/22/22 16:48 Albuterol Sulfate 2.5 mg INHALE 11/22/22 16:46 10 mg ONCE ONE Administration Sodium Chloride 1,000 mls @ 999 mls/hr 11/22/22 16:00 11/22/22 16:14 Ns IVCONT 11/22/22 17:00 999 mls/hr .Q1H1M ELDER Administration Ceftriaxone Sodium 2 gm/ 50 mls @ 100 mls/hr 11/22/22 15:50 11/22/22 17:29 Sodium Chloride IV 11/22/22 16:19 Infused ONCE ONE Infusion Magnesium Sulfate 2 gm in 50 mls @ 25 mls/hr 11/22/22 15:53 11/22/22 16:51 Magnesium Sulfate/H2o IV 11/22/22 17:52 Infused ONCE ONE Infusion Ipratropium Loyal 0.5 mg 11/22/22 16:46 11/22/22 16:49 Ipratropium Loyal 0.5 Mg/2.5 Ml Solution INHALE 11/22/22 16:47 0.5 mg ONCE ONE Administration Ketorolac Tromethamine 30 mg 11/22/22 16:16 11/22/22 16:23 Ketorolac Tromethamine 30 Mg/Ml Vial IVPUSH 11/22/22 16:17 30 mg ONCE ONE Administration Methylprednisolone Sodium Succinate 125 mg 11/22/22 15:53 11/22/22 16:24 Methylprednisolone Sod Succ 125 Mg/2 Ml Vial IVPUSH 11/22/22 15:54 125 mg ONCE ONE Administration Medical Decision Making Admission/Observation Consideration of admission/observation: Escalation of care including admission/observation considered Lab Data MDM Lab Attestation statement: I reviewed the patient's lab results. Result Diagrams: 11/22/22 16:05 11/22/22 16:05 Labs: Lab Results 11/22/22 11/22/22 11/22/22 Range/Units 15:28 16:05 16:05 WBC 18.7 H (4.8-10.8) X10*3/uL RBC 4.63 (4.20-5.50) X10*6/uL Hgb 13.1 (12.0-16.0) g/dl Hct 40.8 (37.0-47.0) % MCV 88.1 (80.0-98.0) fL MCH 28.3 (27.0-33.0) pg MCHC 32.1 (31.0-35.0) g/dl RDW 13.8 (11.0-16.0) % Plt Count 419 H (160-400) X10*3/uL MPV 10.1 (9.4-12.3) fL Immature Gran % (Auto) 1.0 H (0.0-0.4) % Neut % (Auto) 68.8 (45-73) % Lymph % (Auto) 24.6 (20-40) % Piatt % (Auto) 5.2 (2-11) % Eos % (Auto) 0.1 (0-4) % Baso % (Auto) 0.3 (0-2) % Lymph # (Auto) 4.6 (1.2-4.9) X10*3/uL Piatt # (Auto) 1.0 (0.1-1.2) X10*3/uL Eos # (Auto) 0.0 (0.0-0.4) X10*3/uL Baso # (Auto) 0.1 (0.0-0.2) X10*3/uL Abs Immat Gran (auto) 0.19 H (0.00-0.03) X10*3/uL Absolute Neuts (auto) 12.9 H (2.0-8.3) x10*3/uL Absolute Nucleated RBC 0.000 (0.0-0.012) X10*3/uL Nucleated RBC % (auto) 0.0 (0.0-0.2) /100WBC PT 12.5 (10.0-13.1) SEC INR 1.1 (0.9-1.1) Sodium (135-145) mmol/L Potassium (3.3-5.1) mmol/L Chloride (96-108) mmol/L Carbon Dioxide (22-29) mmol/L Anion Gap (12-20) BUN (9-16) mg/dL Creatinine (0.5-1.4) mg/dL Estim Creat Clear Calc Estimated GFR Random Glucose (60-115) mg/dL Lactic Acid (0.5-2.0) mmol/L Calcium (8.4-10.2) mg/dL Magnesium (1.6-2.6) mg/dL Total Bilirubin (0.0-1.0) mg/dL AST (5-31) U/L ALT (0-31) U/L Alkaline Phosphatase (39-117) U/L Troponin I High Sens (<3.5-17.0) ng/L B-Natriuretic Peptide (<100) pg/mL Total Protein (6.5-8.0) g/dL Albumin (3.5-5.0) g/dL Influenza Type A (PCR) NEGATIVE (Negative) Influenza Type B (PCR) NEGATIVE (Negative) RSV RNA Qual (PCR) NEGATIVE (Negative) SARS-CoV-2 RNA (RT-PCR) NEGATIVE (Negative) 11/22/22 11/22/22 11/22/22 Range/Units 16:05 16:05 16:05 WBC (4.8-10.8) X10*3/uL RBC (4.20-5.50) X10*6/uL Hgb (12.0-16.0) g/dl Hct (37.0-47.0) % MCV (80.0-98.0) fL MCH (27.0-33.0) pg MCHC (31.0-35.0) g/dl RDW (11.0-16.0) % Plt Count (160-400) X10*3/uL MPV (9.4-12.3) fL Immature Gran % (Auto) (0.0-0.4) % Neut % (Auto) (45-73) % Lymph % (Auto) (20-40) % Piatt % (Auto) (2-11) % Eos % (Auto) (0-4) % Baso % (Auto) (0-2) % Lymph # (Auto) (1.2-4.9) X10*3/uL Piatt # (Auto) (0.1-1.2) X10*3/uL Eos # (Auto) (0.0-0.4) X10*3/uL Baso # (Auto) (0.0-0.2) X10*3/uL Abs Immat Gran (auto) (0.00-0.03) X10*3/uL Absolute Neuts (auto) (2.0-8.3) x10*3/uL Absolute Nucleated RBC (0.0-0.012) X10*3/uL Nucleated RBC % (auto) (0.0-0.2) /100WBC PT (10.0-13.1) SEC INR (0.9-1.1) Sodium 141 (135-145) mmol/L Potassium 4.1 (3.3-5.1) mmol/L Chloride 104 (96-108) mmol/L Carbon Dioxide 28 (22-29) mmol/L Anion Gap 13 (12-20) BUN 16 (9-16) mg/dL Creatinine 0.81 (0.5-1.4) mg/dL Estim Creat Clear Calc 51.9 Estimated GFR > 60 Random Glucose 128 H (60-115) mg/dL Lactic Acid 1.5 (0.5-2.0) mmol/L Calcium 10.0 D (8.4-10.2) mg/dL Magnesium 1.9 (1.6-2.6) mg/dL Total Bilirubin 0.2 (0.0-1.0) mg/dL AST 24 (5-31) U/L ALT 28 (0-31) U/L Alkaline Phosphatase 76 (39-117) U/L Troponin I High Sens 6.2 (<3.5-17.0) ng/L B-Natriuretic Peptide (<100) pg/mL Total Protein 7.0 (6.5-8.0) g/dL Albumin 3.9 (3.5-5.0) g/dL Influenza Type A (PCR) (Negative) Influenza Type B (PCR) (Negative) RSV RNA Qual (PCR) (Negative) SARS-CoV-2 RNA (RT-PCR) (Negative) 11/22/22 Range/Units 16:05 WBC (4.8-10.8) X10*3/uL RBC (4.20-5.50) X10*6/uL Hgb (12.0-16.0) g/dl Hct (37.0-47.0) % MCV (80.0-98.0) fL MCH (27.0-33.0) pg MCHC (31.0-35.0) g/dl RDW (11.0-16.0) % Plt Count (160-400) X10*3/uL MPV (9.4-12.3) fL Immature Gran % (Auto) (0.0-0.4) % Neut % (Auto) (45-73) % Lymph % (Auto) (20-40) % Piatt % (Auto) (2-11) % Eos % (Auto) (0-4) % Baso % (Auto) (0-2) % Lymph # (Auto) (1.2-4.9) X10*3/uL Piatt # (Auto) (0.1-1.2) X10*3/uL Eos # (Auto) (0.0-0.4) X10*3/uL Baso # (Auto) (0.0-0.2) X10*3/uL Abs Immat Gran (auto) (0.00-0.03) X10*3/uL Absolute Neuts (auto) (2.0-8.3) x10*3/uL Absolute Nucleated RBC (0.0-0.012) X10*3/uL Nucleated RBC % (auto) (0.0-0.2) /100WBC PT (10.0-13.1) SEC INR (0.9-1.1) Sodium (135-145) mmol/L Potassium (3.3-5.1) mmol/L Chloride (96-108) mmol/L Carbon Dioxide (22-29) mmol/L Anion Gap (12-20) BUN (9-16) mg/dL Creatinine (0.5-1.4) mg/dL Estim Creat Clear Calc Estimated GFR Random Glucose (60-115) mg/dL Lactic Acid (0.5-2.0) mmol/L Calcium (8.4-10.2) mg/dL Magnesium (1.6-2.6) mg/dL Total Bilirubin (0.0-1.0) mg/dL AST (5-31) U/L ALT (0-31) U/L Alkaline Phosphatase (39-117) U/L Troponin I High Sens (<3.5-17.0) ng/L B-Natriuretic Peptide 36 (<100) pg/mL Total Protein (6.5-8.0) g/dL Albumin (3.5-5.0) g/dL Influenza Type A (PCR) (Negative) Influenza Type B (PCR) (Negative) RSV RNA Qual (PCR) (Negative) SARS-CoV-2 RNA (RT-PCR) (Negative) Independent Interpretation I performed an independent interpretation of an: EKG (EKG is normal sinus rhythm no acute ischemic change are noted with ventricular rate of 81 with a normal NE interval normal QRS duration normal QT/QTC see interval. No acute ischemic change are noted. Similar compared to prior EKGs) and Plain X-Ray Interpretation: CXR FINDINGS: No significant abnormality is noted involving the heart, lungs, mediastinum, bony thorax or soft tissues. XR/XR chest 2V IMPRESSION: No acute disease. Radiology Impression Discussion of test interpretation with radiology: I have reviewed the radiologist's reading. External Record Review External record reviewed: Inpatient record, Office record, Outpatient record, Prior outpatient labs, Prior outpatient radiology, Primary care record and Outside ED record Prescription Management I considered prescription management with: Pain Medication and Antibiotic Chronic Conditions Patient?s care impacted by: Diabetes Critical Care Time Critical Care Time Critical Care Time: Yes Total Critical Care Time: 60 Attestation: I personally attest to this time spent taking care of the patient Discharge Plan Discharge Clinical Impression: Asthma exacerbation, Acute bronchitis with bronchospasm Patient Disposition: Home, Self-Care Instructions: Asthma (ED), Acute Bronchitis (ED) Prescriptions: New albuterol sulfate 0.63 mg/3 mL solution for nebulization 0.63 mg inhalation QID PRN (Reason: shortness of breath or wheezing) Qty: 75 0RF azithromycin 250 mg tablet See Rx Instructions .ROUTE .COMPLEX Qty: 6 0RF Rx Instructions: take 500 mg today (day 1), then 250 mg for 4 days (days 2-5) prednisone 20 mg tablet 40 mg PO DAILY 5 Days Qty: 10 0RF codeine-guaifenesin [Guaifenesin AC] 10-100 mg/5 mL liquid 5 ml PO Q6H PRN (Reason: cold symptoms) Qty: 120 0RF cefuroxime axetil 500 mg tablet 500 mg PO BID 7 Days Qty: 14 0RF albuterol sulfate 90 mcg/actuation HFA aerosol inhaler 1 inh inhalation QID PRN (Reason: shortness of breath or wheezing) Qty: 8.5 0RF No Action (DME) pen needle, diabetic [Comfort EZ Pen [place]] 31 gauge x 5/16 needle See Rx Instructions .ROUTE .MEDSUPPLY Qty: 200 11RF Rx Instructions: Use 1 pen needle 6 times a day (DME) lancets [FreeStyle Lancets] 28 gauge misc See Rx Instructions .Route Qty: 100 3RF Rx Instructions: Use 1 lancet once a day lamotrigine 25 mg tablet 25 mg PO BID 90 Days Qty: 180 1RF lubiprostone [Amitiza] 8 mcg capsule 8 mcg PO BID 30 Days Qty: 60 3RF trazodone 100 mg tablet 100 mg PO BEDTIME 90 Days Qty: 90 0RF insulin aspart U-100 [Novolog FlexPen U-100 Insulin] 100 unit/mL (3 mL) insulin pen 2 - 10 unit subcut TIDAC 30 Days Qty: 15 11RF Protocol: Insulin Correction Scale Less than or equal to 110 ---- Give (units): 0 111 to 150 Give (units): 0 151 to 200 Give (units): 2 201 to 250 Give (units): 4 251 to 300 Give (units): 6 301 to 350 Give (units): 8 Greater than 350 Give (units): 10 Call MD if Blood Glucose > : 350 Rx Instructions: Via sliding scale dicyclomine 10 mg capsule 10 mg PO TID PRN (Reason: for abdominal pain) 30 Days Qty: 30 1RF famotidine 20 mg tablet 20 mg PO BEDTIME 90 Days Qty: 90 1RF losartan 25 mg tablet 25 mg PO DAILY Qty: 90 0RF pregabalin [Lyrica] 200 mg capsule 200 mg PO BEDTIME Qty: 30 3RF muvpvjjone-gdpgyvjtlwkjq-cufo 50-325-40 mg tablet 1 tab PO Q6H PRN (Reason: pain) 30 Days Qty: 30 0RF ipratropium-albuterol 0.5 mg-3 mg(2.5 mg base)/3 mL solution for nebulization 3 ml inhalation Q6H PRN (Reason: wheezing) Qty: 180 2RF pantoprazole 40 mg tablet,delayed release (DR/EC) 40 mg PO BID 90 Days Qty: 180 0RF ondansetron 4 mg tablet,disintegrating 4 mg PO Q8H PRN (Reason: nausea and vomiting) Qty: 14 0RF albuterol sulfate 90 mcg/actuation aerosol powdr breath activated 2 inh inhalation Q4-6H PRN (Reason: shortness of breath or wheezing) Qty: 1 0RF morphine 15 mg tablet 15 mg PO BID PRN (Reason: pain) Qty: 8 0RF Rx Instructions: Partial Fill upon patient request. prednisone 5 mg tablet 1 tab PO DAILY aspirin 81 mg Tablet,Delayed Release (Dr/Ec) 81 mg PO DAILY metoprolol tartrate 25 mg tablet 0.5 tab PO BID sulfasalazine 500 mg tablet 500 mg PO BID azithromycin 250 mg tablet 250 mg PO MOWEFR@0900 pregabalin 150 mg capsule 150 mg PO DAILY Trulicity 1.5 mg/0.5 mL pen injector 1.5 mg subcut TH@0900 letrozole 2.5 mg tablet 2.5 mg PO BEDTIME ipratropium-albuterol 0.5 mg-3 mg(2.5 mg base)/3 mL Solution For Nebulization 3 ml inhalation RQ4H WHILE AWAKE Qty: 180 0RF prednisone 10 mg tablet See Rx Instructions .Route .COMPLEX Qty: 45 0RF Rx Instructions: 10 mg orally; 5 tabs p.o. daily x3 days; 4 tabs p.o. daily x3 days; 3 tabs daily x3 days; 2 tabs daily x3 days; 1 tab daily x3 days nitroglycerin 0.4 mg tablet, sublingual 0.4 mg sublingual Q5M PRN (Reason: Chest Pain) atorvastatin 80 mg tablet 80 mg PO DAILY 90 Days Qty: 90 1RF Rx Instructions: patient lost recent RX, please fill this as emergency RX this one time Brilinta 90 mg tablet 90 mg PO BID 90 Days Qty: 180 1RF Rx Instructions: Please fill Rx today, patient lost previous RX, fill as emergency this one time (DME) FreeStyle Lite Strips Strip MISCELLANEOUS DAILY Qty: 100 1RF Rx Instructions: Use 1 test strip three times a day insulin degludec [Tresiba FlexTouch U-100] 100 unit/mL (3 mL) insulin pen 20 unit subcut BEDTIME 90 Days Qty: 18 1RF Referrals: Adela Gipson MD [Primary Care Provider] - 3 days
== END 2022-11-22 19:01 | disposition home or self-care (01) ==
PROVIDERS: Physician Assistant Medical; Emergency Provider Emergency Medicine Emergency Medical Services; PCP Internal Medicine
DX: J45.901 Unspecified asthma with (acute) exacerbation (principal); J20.8 Acute bronchitis due to other specified organisms; R06.02 Shortness of breath; I25.10 Atherosclerotic heart disease of native coronary artery without angina pectoris; I10 Essential (primary) hypertension; F17.210 Nicotine dependence, cigarettes, uncomplicated; Z20.822 Contact with and (suspected) exposure to COVID-19; Z71.6 Tobacco abuse counseling; Z79.899 Other long term (current) drug therapy
CPT/HCPCS: 0241U; 36415; 71046; 80053; 83605; 83735; 83880; 84484; 85025; 85610; 87040; 93005; 94640; 96361; 96374; 96375; 99285; J0696; J1885; J2930; J3475

== ENCOUNTER → 2022-12-03 14:47 | Outpatient (BNVA) | payer MEDICARE, MEDICAID, SELFPAY ==
[2022-09-19 10:26] VITALS: BP 100/64; BP 102/48; BP 110/70; BMI 25.5
== END ==
PROVIDERS: PCP Internal Medicine; Referring Provider Internal Medicine; Visit Provider Internal Medicine Cardiovascular Disease
DX: R07.9 Chest pain, unspecified (principal); I25.10 Atherosclerotic heart disease of native coronary artery without angina pectoris; I10 Essential (primary) hypertension; E11.9 Type 2 diabetes mellitus without complications; E78.5 Hyperlipidemia, unspecified; M79.7 Fibromyalgia; J44.9 Chronic obstructive pulmonary disease, unspecified; J45.909 Unspecified asthma, uncomplicated; Z95.5 Presence of coronary angioplasty implant and graft; Z98.890 Other specified postprocedural states
CPT/HCPCS: 93005; 99212

== ENCOUNTER → 2022-12-05 09:11 | Outpatient (BNVA) | payer MEDICARE, MEDICAID, SELFPAY ==
[2022-09-19 10:26] VITALS: BP 100/64; BP 102/48; BP 110/70; BMI 25.5
== END ==
PROVIDERS: PCP Internal Medicine; Visit Provider Internal Medicine
DX: J44.9 Chronic obstructive pulmonary disease, unspecified (principal); J45.909 Unspecified asthma, uncomplicated; J68.3 Other acute and subacute respiratory conditions due to chemicals, gases, fumes and vapors; R05.9 Cough, unspecified; J30.9 Allergic rhinitis, unspecified; Z79.52 Long term (current) use of systemic steroids; Z79.899 Other long term (current) drug therapy
CPT/HCPCS: 99212

== ENCOUNTER 2022-12-18 16:03 | Emergency (ER) | payer MEDICARE, MEDICAID, SELFPAY ==
[2022-09-19 10:26] VITALS: BP 100/64; BP 102/48; BP 110/70; BMI 25.5
--- NOTE | ~2022-12-18 | CT_ITS ---
EXAMINATION: CTA CHEST, ABDOMEN AND PELVIS CLINICAL INFORMATION: Reason for Exam chest pain COMPARISON: Chest radiograph earlier this evening, CT abdomen pelvis 11/16/2022, CT chest 08/16/2020 TECHNIQUE: Multidetector volumetric imaging was performed from the thoracic inlet through the pubic symphysis following administration of 75 mL of Omnipaque 350. Sagittal and coronal reformatted images were obtained on the technologist's workstation. This CT examination was performed using dose optimization techniques as appropriate, variously including the following: *Automated exposure control *Adjustment of mA and/or kV according to patient size (this includes techniques or standardized protocols for targeted exams where dose is matched to indication/reason for exam; i.e. extremities or head) *Use of iterative reconstruction technique DLP: 446 mGy-cm VASCULAR FINDINGS: The thoracic aorta appears normal with the exception of some atherosclerotic changes. Three-vessel branching pattern of the arch is present. There is mild stenosis of the proximal left subclavian caused by noncalcified plaque. No aortic dissection is seen. No intramural hematoma. No aortic aneurysm. Triple-vessel coronary calcification is seen. Although not carried out for evaluation of the pulmonary arteries or pulmonary veins, no abnormalities are seen. No pulmonary emboli are detected. The abdominal aorta demonstrates minimal atherosclerotic change anomaly in the infrarenal aorta. No aneurysm dissection or intramural hematoma is seen. The visualized iliofemoral vessels are unremarkable aside from some mild calcific plaque in the common iliac arteries. No stenoses, aneurysms or dissections are seen. The celiac SMA, [place] and bilateral single renal arteries are all widely patent. NONVASCULAR FINDINGS: CHEST: Lung: The lungs are clear without focal opacity or nodule. Lingular right middle lobe bibasilar atelectasis is present. Mediastinum: Thyroid appears normal. Heart size normal. No mediastinal or hilar adenopathy. Pericardium/Pleura: No significant effusion. No pleural mass or thickening. Chest Wall/Axilla: Unremarkable ABDOMEN/PELVIS: Peritoneal Space: No significant free air or free fluid identified. Liver, Gallbladder, Biliary Tree: The liver is enlarged measuring 17.4 cm in cephalocaudad dimension and demonstrates decreased attenuation with focal fatty sparing around the gallbladder consistent with hepatic steatosis. No focal hepatic lesion or biliary ductal dilatation is present. The gallbladder is unremarkable with no evidence of radiopaque gallstones, gallbladder wall thickening, or obvious pericholecystic inflammatory changes. Pancreas: Unremarkable Spleen: Unremarkable Adrenal Glands: There is mild low-density thickening of the left adrenal gland. The right adrenal gland appears normal. Kidneys and Ureters: The kidneys are normal in size, shape, and attenuation. No hydronephrosis, hydroureter, or calculi seen. No perinephric stranding. Bladder: Unremarkable Gastrointestinal Tract: The small and large bowel are unremarkable. The appendix is unremarkable. Abdominal Wall: No significant hernia is appreciated. Lymph Nodes: No lymphadenopathy. PELVIC VISCERA: Surgically removed OSSEUS STRUCTURES: Unremarkable CT/CT angio abdomen pelvis IMPRESSION: 1. No evidence of aortic dissection or any other acute aortic syndrome. 2. Incidental findings as described above including coronary calcification, enlarged fatty liver, mild thickening of the left adrenal gland and hysterectomy. Fleischner guidelines were followed.
--- NOTE | ~2022-12-18 | XR_ITS ---
EXAMINATION: XR THORACIC SPINE CLINICAL INFORMATION: Mid back pain COMPARISON: CT chest 08/16/2022, CT neck 08/16/2022 TECHNIQUE: 3 views of the thoracic spine were obtained. FINDINGS: There is no fracture or bone destruction seen and the vertebral alignment is normal. Mild degenerative changes are present which are most marked in the visualized portions of the cervical spine at C5-C6 and C6-C7. There is mild disc space narrowing in the midthoracic spine. There is no abnormality of the paraspinal soft tissues. XR/XR thoracic spine 3V IMPRESSION: Mild degenerative changes in the cervical spine and midthoracic spine.
--- NOTE | ~2022-12-18 | XR_ITS ---
EXAMINATION: XR CHEST CLINICAL INFORMATION: Shortness of breath COMPARISON: 11/22/2022 TECHNIQUE: Frontal view of the chest was obtained. FINDINGS: No significant abnormality is noted involving the heart, lungs, mediastinum, bony thorax or soft tissues. XR/XR chest 1V IMPRESSION: Unremarkable examination.
[2022-12-18 16:22] VITALS: BP 124/83; PULSE 124; RESP 22; TEMP 36.6; O2SAT 98; BMI 25.3
--- NOTE | 2022-12-18 16:22 | ECG_ITS ---
Test Reason : sob Blood Pressure : / mmHG Vent. Rate : 117 BPM Atrial Rate : 117 BPM P-R Int : 126 ms QRS Dur : 084 ms QT Int : 312 ms P-R-T Axes : 077 074 061 degrees QTc Int : 435 ms Sinus tachycardia Possible Left atrial enlargement Borderline ECG When compared with ECG of 22-NOV-2022 16:36, No significant change was found Referred By: Jesse Manzanares Electronically Signed By:Joseph Salmon
--- NOTE | 2022-12-18 16:28 | ED_ITS ---
HPI - General Adult General Chief complaint: Back Pain/Injury Stated complaint: middle back pain Time Seen by Provider: 12/18/22 18:25 Related Data Home Medications Medication Instructions Recorded Confirmed nitroglycerin 0.4 mg sublingual 0.4 mg sublingual Q5M PRN Chest 01/03/22 12/17/22 tablet Pain dulaglutide 1.5 mg/0.5 mL 1.5 mg subcut TH@0900 11/08/22 12/17/22 subcutaneous pen injector (Trulicity) letrozole 2.5 mg tablet 2.5 mg PO BEDTIME 11/08/22 12/17/22 metoprolol tartrate 25 mg tablet 0.5 tab PO BID 11/08/22 12/17/22 pregabalin 150 mg capsule 150 mg PO DAILY 11/08/22 12/17/22 Previous Rx's Medication Instructions Recorded atorvastatin 80 mg tablet 80 mg PO DAILY 90 days #90 tabs 02/06/22 ticagrelor 90 mg tablet (Brilinta) 90 mg PO BID 90 days #180 tabs 02/06/22 lancets 28 gauge (FreeStyle #100 ea 06/07/22 Lancets) pen needle, diabetic 31 gauge x #200 ea 06/07/22/16 (Comfort EZ Pen [place]) ondansetron 4 mg disintegrating 4 mg PO Q8H PRN nausea and 06/29/22 tablet vomiting #14 tabs lubiprostone 8 mcg capsule 8 mcg PO BID 30 days #60 caps 07/18/22 (Amitiza) Novolog FlexPen U-100 Insulin 100 2 - 10 unit subcut TIDAC 30 days 08/28/22 unit/mL (3 mL) subcutaneous #15 mL (insulin aspart U-100) dicyclomine 10 mg capsule 10 mg PO TID PRN for abdominal 08/28/22 pain 30 days #30 caps famotidine 20 mg tablet 20 mg PO BEDTIME 90 days #90 tabs 09/07/22 losartan 25 mg tablet 25 mg PO DAILY #90 tabs 09/07/22 blood sugar diagnostic (FreeStyle #100 ea 09/26/22 Lite Strips) pregabalin 200 mg capsule (Lyrica) 200 mg PO BEDTIME #30 caps 10/01/22 cmyigzujem-mdcccnsbrawrd-cuwvjuyf 1 tab PO Q6H PRN pain 30 days #30 10/02/22 50 mg-325 mg-40 mg tablet tabs pantoprazole 40 mg tablet,delayed 40 mg PO BID 90 days #180 tabs 10/18/22 release insulin degludec 100 unit/mL (3 20 unit (0.2 mL) subcut BEDTIME 90 11/07/22 mL) subcutaneous pen (Tresiba days #18 mL FlexTouch U-100 insulin) ipratropium 0.5 mg-albuterol 3 mg 3 ml inhalation RQ4H WHILE AWAKE 11/13/22 (2.5 mg base)/3 mL nebulization #180 mL soln codeine 10 mg-guaifenesin 100 mg/5 5 ml PO Q6H PRN cold symptoms #120 11/22/22 mL oral liquid (Guaifenesin AC) mL aspirin 81 mg tablet,delayed 81 mg PO DAILY 90 days #90 tabs 11/25/22 release prednisone 5 mg tablet 5 mg PO DAILY for asthma #30 tabs 11/26/22 Ventolin HFA 90 mcg/actuation 1 inh inhalation QID PRN shortness 12/14/22 aerosol inhaler (albuterol sulfate) of breath or wheezing 30 days #18 grams lamotrigine 25 mg tablet 25 mg PO BID 90 days #180 tabs 12/18/22 oxycodone 5 mg tablet 5 mg PO Q8H PRN pain #7 tabs 12/18/22 trazodone 100 mg tablet 100 mg PO BEDTIME 90 days #90 tabs 12/18/22 ketorolac 10 mg tablet 10 mg PO Q8H #14 tabs 12/19/22 oxycodone 5 mg tablet 5 mg PO Q6H PRN pain #7 tabs 12/19/22 Allergies Allergy/AdvReac Type Severity Reaction Status Date / Time dog dander [DOGS] Allergy Intermediate Respiratory Verified 12/20/22 10:50 distress ibuprofen [Ibuprofen] Allergy Intermediate STOMACH Verified 12/20/22 10:50 UPSET, abdominal pain, nausea and vomiting shellfish derived Allergy Intermediate Hives Verified 12/20/22 10:50 etanercept [From Enbrel] AdvReac Intermediate Facial Verified 12/20/22 10:50 Swelling metformin AdvReac Intermediate diarrhea Verified 12/20/22 10:50 metronidazole [From FLAGYL] AdvReac Intermediate DIARRHEA Verified 12/20/22 10:50 prednisone AdvReac Intermediate hallucinations, Verified 12/20/22 10:50 higher than 20 [facility] Past Medical History Medical History Allergic rhinitis Anxiety Atherosclerotic cardiovascular disease Bipolar 1 disorder, depressed Bloody diarrhea Breast pain, right Bronchial asthma Colitis COPD (chronic obstructive pulmonary disease) COPD exacerbation Cough CVA (cerebral vascular accident) Depression Diabetes type 2, uncontrolled Dyslipidemia Fibromyalgia HLD (hyperlipidemia) Hospital discharge follow-up HTN (hypertension) Hyperkalemia Hyperlipidemia LDL goal <100 Hyperparathyroidism Hypertension Hypothyroid IDDM (insulin dependent diabetes mellitus) Infiltrating ductal carcinoma of left breast, stage 2 Insomnia Irritable bowel Osteoporosis PAD (peripheral artery disease) Rash Reactive airways dysfunction syndrome Restrictive airway disease Seropositive rheumatoid arthritis T2DM (type 2 diabetes mellitus) Thyroid nodule Vitamin D deficiency Surgical History H/O cardiac catheterization H/O: hysterectomy History of bronchoscopy History of bunionectomy of both great toes History of colonoscopy History of esophagogastroduodenoscopy (EGD) History of lumpectomy of left breast History of pubovaginal sling History of tubal ligation Hx of endoscopy Family History Family History Mother Diabetes HTN (hypertension) Uterus cancer Malignant tumor of head Breast cancer Father Diabetes HTN (hypertension) CVD (cardiovascular disease) Heart problem Maternal Aunt Breast cancer Brother Myocardial infarction S/P CABG x 4 Family/Other FH: mental illness Family/Other Lung cancer Other Mental health disorder Social History Social History (System 12/20/22 @ 10:50 by Yari Bustamante) Household Members: Other Household Members Other:: sister Housing: Apartment Are you a primary career guidance counselor to a significant other at home: No Do you presently have visiting nurse or other home services: Yes Alcohol intake: never Patient Tobacco Use Status: Current everyday Tobacco user Tobacco use type: Cigarette Years Smoked: 50 +/- e-Cigarette/Vaping Use: Never Used Second Hand Smoke Exposure: No Advance Directives Date on File: 12/22/21 service: No Current occupational status: disabled Current occupation: rt handed Cognitive needs: No Hearing needs: No Vision needs: Yes Physical Exam ED Vital Signs: Vital Signs - 24 hr 12/18/22 16:22 Temperature 97.9 F Pulse Rate 124 H Respiratory Rate 22 H Blood Pressure 124/83 Pulse Oximetry 98 Oxygen Delivery Method Room Air BMI result Body Mass Index 25.3 Course Course Course Narrative: RME: 62 kitty chan presents to the ED for mid back pain with bilateral flank pain hurt on movement. Patient also states pleurisy and SOB. EKG and labs including toponin and D-dimer ordered due to pleiurisy. patient denies chest pain. CHest and throac xray ordered. 5:15pm. Charge nurse made aware of patient GLucose of 439. Medications Administered Discontinued Medications Generic Name Dose Route Start Last Admin Trade Name Freq PRN Reason Stop Dose Admin Hydromorphone HCl 1 mg 12/18/22 18:45 12/18/22 19:07 Hydromorphone Hcl 1 Mg/Ml Syringe IVPUSH 12/18/22 18:46 1 mg ONCE ONE Administration Protocol Sodium Chloride 1,000 mls @ 999 mls/hr 12/18/22 19:00 12/18/22 21:06 Ns IV 12/18/22 20:00 Infused .Q1H1M ELDER Infusion Insulin Human Regular 5 unit 12/18/22 18:46 12/18/22 18:55 Insulin Regular, Human 100 Unit/Ml 3 Ml Vial 0.1 unit/kg (5 unit) 12/18/22 18:47 5 unit IVPUSH Administration ONCE ONE Iohexol 100 ml 12/18/22 20:07 12/18/22 20:07 Iohexol 350 Mg/Ml 100 Ml Infus..Btl IV 12/18/22 20:08 75 ml ONCE ONE Administration Medical Decision Making Lab Data 12/18/22 16:38 12/18/22 16:38 Labs: Lab Results 12/18/22 12/18/22 12/18/22 Range/Units 16:38 16:38 16:38 WBC 11.6 H (4.8-10.8) X10*3/uL RBC 4.47 (4.20-5.50) X10*6/uL Hgb 13.2 (12.0-16.0) g/dl Hct 39.1 (37.0-47.0) % MCV 87.5 (80.0-98.0) fL MCH 29.5 (27.0-33.0) pg MCHC 33.8 (31.0-35.0) g/dl RDW 13.5 (11.0-16.0) % Plt Count 270 D (160-400) X10*3/uL MPV 11.1 (9.4-12.3) fL Immature Gran % (Auto) 0.5 H (0.0-0.4) % Neut % (Auto) 62.1 (45-73) % Lymph % (Auto) 31.0 (20-40) % [place] % (Auto) 5.7 (2-11) % Eos % (Auto) 0.4 (0-4) % Baso % (Auto) 0.3 (0-2) % Lymph # (Auto) 3.6 (1.2-4.9) X10*3/uL [place] # (Auto) 0.7 (0.1-1.2) X10*3/uL Eos # (Auto) 0.1 (0.0-0.4) X10*3/uL Baso # (Auto) 0.0 (0.0-0.2) X10*3/uL Abs Immat Gran (auto) 0.06 H (0.00-0.03) X10*3/uL Absolute Neuts (auto) 7.2 (2.0-8.3) x10*3/uL Absolute Nucleated RBC 0.000 (0.0-0.012) X10*3/uL Nucleated RBC % (auto) 0.0 (0.0-0.2) /100WBC PT 12.7 (10.0-13.1) SEC INR 1.1 (0.9-1.1) APTT 28.4 (26.0-36.4) SEC D-Dimer High Sensitivty NG/ML Sodium 136 (135-145) mmol/L Potassium 3.7 (3.3-5.1) mmol/L Chloride 101 (96-108) mmol/L Carbon Dioxide 25 (22-29) mmol/L Anion Gap 14 (12-20) BUN 12 (9-16) mg/dL Creatinine 1.12 (0.5-1.4) mg/dL Estim Creat Clear Calc 37.4 Estimated GFR 50 POC Glucose (60-115) mg/dL Random Glucose 439 H* (60-115) mg/dL Calcium 9.3 D (8.4-10.2) mg/dL Total Bilirubin 0.2 (0.0-1.0) mg/dL AST 10 (5-31) U/L ALT 13 (0-31) U/L Alkaline Phosphatase 72 (39-117) U/L Troponin I High Sens (<3.5-17.0) ng/L B-Natriuretic Peptide (<100) pg/mL Total Protein 6.4 L (6.5-8.0) g/dL Albumin 3.9 (3.5-5.0) g/dL Acetone, Qual Negative (Negative) 12/18/22 12/18/22 12/18/22 Range/Units 16:38 16:38 16:38 WBC (4.8-10.8) X10*3/uL RBC (4.20-5.50) X10*6/uL Hgb (12.0-16.0) g/dl Hct (37.0-47.0) % MCV (80.0-98.0) fL MCH (27.0-33.0) pg MCHC (31.0-35.0) g/dl RDW (11.0-16.0) % Plt Count (160-400) X10*3/uL MPV (9.4-12.3) fL Immature Gran % (Auto) (0.0-0.4) % Neut % (Auto) (45-73) % Lymph % (Auto) (20-40) % [place] % (Auto) (2-11) % Eos % (Auto) (0-4) % Baso % (Auto) (0-2) % Lymph # (Auto) (1.2-4.9) X10*3/uL [place] # (Auto) (0.1-1.2) X10*3/uL Eos # (Auto) (0.0-0.4) X10*3/uL Baso # (Auto) (0.0-0.2) X10*3/uL Abs Immat Gran (auto) (0.00-0.03) X10*3/uL Absolute Neuts (auto) (2.0-8.3) x10*3/uL Absolute Nucleated RBC (0.0-0.012) X10*3/uL Nucleated RBC % (auto) (0.0-0.2) /100WBC PT (10.0-13.1) SEC INR (0.9-1.1) APTT (26.0-36.4) SEC D-Dimer High Sensitivty < 150 NG/ML Sodium (135-145) mmol/L Potassium (3.3-5.1) mmol/L Chloride (96-108) mmol/L Carbon Dioxide (22-29) mmol/L Anion Gap (12-20) BUN (9-16) mg/dL Creatinine (0.5-1.4) mg/dL Estim Creat Clear Calc Estimated GFR POC Glucose (60-115) mg/dL Random Glucose (60-115) mg/dL Calcium (8.4-10.2) mg/dL Total Bilirubin (0.0-1.0) mg/dL AST (5-31) U/L ALT (0-31) U/L Alkaline Phosphatase (39-117) U/L Troponin I High Sens 4.2 (<3.5-17.0) ng/L B-Natriuretic Peptide 12 (<100) pg/mL Total Protein (6.5-8.0) g/dL Albumin (3.5-5.0) g/dL Acetone, Qual (Negative) 12/18/22 Range/Units 21:23 WBC (4.8-10.8) X10*3/uL RBC (4.20-5.50) X10*6/uL Hgb (12.0-16.0) g/dl Hct (37.0-47.0) % MCV (80.0-98.0) fL MCH (27.0-33.0) pg MCHC (31.0-35.0) g/dl RDW (11.0-16.0) % Plt Count (160-400) X10*3/uL MPV (9.4-12.3) fL Immature Gran % (Auto) (0.0-0.4) % Neut % (Auto) (45-73) % Lymph % (Auto) (20-40) % [place] % (Auto) (2-11) % Eos % (Auto) (0-4) % Baso % (Auto) (0-2) % Lymph # (Auto) (1.2-4.9) X10*3/uL [place] # (Auto) (0.1-1.2) X10*3/uL Eos # (Auto) (0.0-0.4) X10*3/uL Baso # (Auto) (0.0-0.2) X10*3/uL Abs Immat Gran (auto) (0.00-0.03) X10*3/uL Absolute Neuts (auto) (2.0-8.3) x10*3/uL Absolute Nucleated RBC (0.0-0.012) X10*3/uL Nucleated RBC % (auto) (0.0-0.2) /100WBC PT (10.0-13.1) SEC INR (0.9-1.1) APTT (26.0-36.4) SEC D-Dimer High Sensitivty NG/ML Sodium (135-145) mmol/L Potassium (3.3-5.1) mmol/L Chloride (96-108) mmol/L Carbon Dioxide (22-29) mmol/L Anion Gap (12-20) BUN (9-16) mg/dL Creatinine (0.5-1.4) mg/dL Estim Creat Clear Calc Estimated GFR POC Glucose 73 (60-115) mg/dL Random Glucose (60-115) mg/dL Calcium (8.4-10.2) mg/dL Total Bilirubin (0.0-1.0) mg/dL AST (5-31) U/L ALT (0-31) U/L Alkaline Phosphatase (39-117) U/L Troponin I High Sens (<3.5-17.0) ng/L B-Natriuretic Peptide (<100) pg/mL Total Protein (6.5-8.0) g/dL Albumin (3.5-5.0) g/dL Acetone, Qual (Negative) Discharge Plan Discharge Clinical Impression: Back pain Patient Disposition: Home, Self-Care Instructions: Back Pain (ED) Prescriptions: New oxycodone 5 mg tablet 5 mg PO Q8H PRN (Reason: pain) Qty: 7 0RF Rx Instructions: Partial Fill upon patient request. oxycodone 5 mg tablet 5 mg PO Q6H PRN (Reason: pain) Qty: 7 0RF Rx Instructions: Partial Fill upon patient request. No Action (DME) pen needle, diabetic [Comfort EZ Pen [place]] 31 gauge x 5/16 needle See Rx Instructions .ROUTE .MEDSUPPLY Qty: 200 11RF Rx Instructions: Use 1 pen needle 6 times a day (DME) lancets [FreeStyle Lancets] 28 gauge misc See Rx Instructions .Route Qty: 100 3RF Rx Instructions: Use 1 lancet once a day lubiprostone [Amitiza] 8 mcg capsule 8 mcg PO BID 30 Days Qty: 60 3RF insulin aspart U-100 [Novolog FlexPen U-100 Insulin] 100 unit/mL (3 mL) insulin pen 2 - 10 unit subcut TIDAC 30 Days Qty: 15 11RF Protocol: Insulin Correction Scale Less than or equal to 110 ---- Give (units): 0 111 to 150 Give (units): 0 151 to 200 Give (units): 2 201 to 250 Give (units): 4 251 to 300 Give (units): 6 301 to 350 Give (units): 8 Greater than 350 Give (units): 10 Call MD if Blood Glucose > : 350 Rx Instructions: Via sliding scale dicyclomine 10 mg capsule 10 mg PO TID PRN (Reason: for abdominal pain) 30 Days Qty: 30 1RF famotidine 20 mg tablet 20 mg PO BEDTIME 90 Days Qty: 90 1RF losartan 25 mg tablet 25 mg PO DAILY Qty: 90 0RF pregabalin [Lyrica] 200 mg capsule 200 mg PO BEDTIME Qty: 30 3RF mjgufyymmm-njwxbjpzowvkh-mwhu 50-325-40 mg tablet 1 tab PO Q6H PRN (Reason: pain) 30 Days Qty: 30 0RF pantoprazole 40 mg tablet,delayed release (DR/EC) 40 mg PO BID 90 Days Qty: 180 0RF aspirin 81 mg tablet,delayed release (DR/EC) 81 mg PO DAILY 90 Days Qty: 90 1RF prednisone 5 mg tablet 5 mg PO DAILY Qty: 30 1RF albuterol sulfate [Ventolin HFA] 90 mcg/actuation HFA aerosol inhaler 1 inh inhalation QID PRN (Reason: shortness of breath or wheezing) 30 Days Qty: 18 2RF lamotrigine 25 mg tablet 25 mg PO BID 90 Days Qty: 180 1RF trazodone 100 mg tablet 100 mg PO BEDTIME 90 Days Qty: 90 0RF ondansetron 4 mg tablet,disintegrating 4 mg PO Q8H PRN (Reason: nausea and vomiting) Qty: 14 0RF metoprolol tartrate 25 mg tablet 0.5 tab PO BID pregabalin 150 mg capsule 150 mg PO DAILY Trulicity 1.5 mg/0.5 mL pen injector 1.5 mg subcut TH@0900 letrozole 2.5 mg tablet 2.5 mg PO BEDTIME ipratropium-albuterol 0.5 mg-3 mg(2.5 mg base)/3 mL Solution For Nebulization 3 ml inhalation RQ4H WHILE AWAKE Qty: 180 0RF codeine-guaifenesin [Guaifenesin AC] 10-100 mg/5 mL liquid 5 ml PO Q6H PRN (Reason: cold symptoms) Qty: 120 0RF ketorolac 10 mg tablet 10 mg PO Q8H Qty: 14 0RF Rx Instructions: Patient received the 1st dose in the ER by IM and tolerated well nitroglycerin 0.4 mg tablet, sublingual 0.4 mg sublingual Q5M PRN (Reason: Chest Pain) atorvastatin 80 mg tablet 80 mg PO DAILY 90 Days Qty: 90 1RF Rx Instructions: patient lost recent RX, please fill this as emergency RX this one time Brilinta 90 mg tablet 90 mg PO BID 90 Days Qty: 180 1RF Rx Instructions: Please fill Rx today, patient lost previous RX, fill as emergency this one time (DME) FreeStyle Lite Strips Strip MISCELLANEOUS DAILY Qty: 100 1RF Rx Instructions: Use 1 test strip three times a day insulin degludec [Tresiba FlexTouch U-100] 100 unit/mL (3 mL) insulin pen 20 unit subcut BEDTIME 90 Days Qty: 18 1RF Referrals: Adela Gipson MD [Primary Care Provider] - Interventions: ED Discharge Assessment Last Done: 12/18/22 21:42 Discharge Date/Time: 12/18/22 21:42
[2022-12-18 16:43] LABS: MANUAL DIFF FLAG NO
[2022-12-18 16:51] LABS: Basophils Percent Auto 0.3 % (0-2); Eosinophils Absolute Auto 0.1 X10*3/uL (0.0-0.4); Eosinophils Percent Auto 0.4 % (0-4); Hematocrit 39.1 % (37.0-47.0); Hemoglobin 13.2 g/dl (12.0-16.0); Imm Gran Abs Auto 0.06 X10*3/uL (0.00-0.03); Imm Gran Pct Auto 0.5 % (0.0-0.4); Lymphocytes Absolute Auto 3.6 X10*3/uL (1.2-4.9); Mean Corpuscular HGB Conc 33.8 g/dl (31.0-35.0); Mean Corpuscular Hemoglobin 29.5 pg (27.0-33.0); Mean Corpuscular Volume 87.5 fL (80.0-98.0); Mean Platelet Volume 11.1 fL (9.4-12.3); Monocytes Absolute Auto 0.7 X10*3/uL (0.1-1.2); Monocytes Percent Auto 5.7 % (2-11); Neutrophils Absolute Auto 7.2 x10*3/uL (2.0-8.3); Neutrophils Percent Auto 62.1 % (45-73); Platelet Count 270 X10*3/uL (160-400); Red Blood Count 4.47 X10*6/uL (4.20-5.50); Red Cell Distribution Width 13.5 % (11.0-16.0); White Blood Count 11.6 X10*3/uL (4.8-10.8)
[2022-12-18 17:04] LABS: Troponin-I High Sensitivity 4.2 ng/L (<3.5-17.0)
[2022-12-18 17:11] LABS: INTERNATIONAL NORM RATIO 1.1 (0.9-1.1); Prothrombin Time 12.7 SEC (10.0-13.1)
[2022-12-18 17:13] LABS: Partial Thromboplastin Time 28.4 SEC (26.0-36.4)
[2022-12-18 17:20] LABS: Alanine Aminotransferase 13 U/L (0-31); Albumin Level 3.9 g/dL (3.5-5.0); Alkaline Phosphatase 72 U/L (39-117); Anion Gap 14 (12-20); Aspartate Amino Transferase 10 U/L (5-31); Bilirubin Total 0.2 mg/dL (0.0-1.0); Blood Urea Nitrogen 12 mg/dL (9-16); Calcium 9.3 mg/dL (8.4-10.2); Carbon Dioxide 25 mmol/L (22-29); Chloride 101 mmol/L (96-108); Creatinine Clr Calc Pharmacy 37.4; Estimated Glomerular Filt Rate 50; Glucose Random 439 mg/dL (60-115); Potassium 3.7 mmol/L (3.3-5.1); Sodium 136 mmol/L (135-145); Total Protein 6.4 g/dL (6.5-8.0)
[2022-12-18 17:34] LABS: D Dimer High Sensitivity < 150 NG/ML
[2022-12-18 17:49] LABS: Acetone, serum QL Negative (Negative)
[2022-12-18 17:51] LABS: B Type Natriuretic Peptide 12 pg/mL (<100)
--- NOTE | 2022-12-18 18:49 | ED.BACK ---
HPI - Back Pain/Injury General Chief Complaint: Back Pain/Injury Stated Complaint: middle back pain Time Seen by Provider: 12/18/22 18:25 History of Present Illness HPI Narrative: Patient is a 62-year-old female with a history of diabetes, hypertension, high cholesterol, smoker presented today with having extreme back pain in the upper back. It does not radiate. It is worse with movement. Patient is from home. Claims is the pain is extreme never had something similar. Patient never had a blood clot there is no leg swelling. Patient claims the pain is worse with deep breath. No fever no chills. No trauma. No diaphoresis. Positive coughing but this is baseline. The pain radiates all the way down to the flank area. Worse on the right-side Related Data Home Medications Medication Instructions Recorded Confirmed nitroglycerin 0.4 mg sublingual 0.4 mg sublingual Q5M PRN Chest 01/03/22 12/17/22 tablet Pain dulaglutide 1.5 mg/0.5 mL 1.5 mg subcut TH@0900 11/08/22 12/17/22 subcutaneous pen injector (Trulicity) letrozole 2.5 mg tablet 2.5 mg PO BEDTIME 11/08/22 12/17/22 metoprolol tartrate 25 mg tablet 0.5 tab PO BID 11/08/22 12/17/22 pregabalin 150 mg capsule 150 mg PO DAILY 11/08/22 12/17/22 Previous Rx's Medication Instructions Recorded atorvastatin 80 mg tablet 80 mg PO DAILY 90 days #90 tabs 02/06/22 ticagrelor 90 mg tablet (Brilinta) 90 mg PO BID 90 days #180 tabs 02/06/22 lancets 28 gauge (FreeStyle #100 ea 06/07/22 Lancets) pen needle, diabetic 31 gauge x #200 ea 06/07/2216 (Comfort EZ Pen [place]) ondansetron 4 mg disintegrating 4 mg PO Q8H PRN nausea and 06/29/22 tablet vomiting #14 tabs lubiprostone 8 mcg capsule 8 mcg PO BID 30 days #60 caps 07/18/22 (Amitiza) Novolog FlexPen U-100 Insulin 100 2 - 10 unit subcut TIDAC 30 days 08/28/22 unit/mL (3 mL) subcutaneous #15 mL (insulin aspart U-100) dicyclomine 10 mg capsule 10 mg PO TID PRN for abdominal 08/28/22 pain 30 days #30 caps famotidine 20 mg tablet 20 mg PO BEDTIME 90 days #90 tabs 09/07/22 losartan 25 mg tablet 25 mg PO DAILY #90 tabs 09/07/22 blood sugar diagnostic (FreeStyle #100 ea 09/26/22 Lite Strips) pregabalin 200 mg capsule (Lyrica) 200 mg PO BEDTIME #30 caps 10/01/22 btfhtnqvdv-eirjyzlqkacec-uskaegrw 1 tab PO Q6H PRN pain 30 days #30 10/02/22 50 mg-325 mg-40 mg tablet tabs pantoprazole 40 mg tablet,delayed 40 mg PO BID 90 days #180 tabs 10/18/22 release insulin degludec 100 unit/mL (3 20 unit (0.2 mL) subcut BEDTIME 90 11/07/22 mL) subcutaneous pen (Tresiba days #18 mL FlexTouch U-100 insulin) ipratropium 0.5 mg-albuterol 3 mg 3 ml inhalation RQ4H WHILE AWAKE 11/13/22 (2.5 mg base)/3 mL nebulization #180 mL soln codeine 10 mg-guaifenesin 100 mg/5 5 ml PO Q6H PRN cold symptoms #120 11/22/22 mL oral liquid (Guaifenesin AC) mL aspirin 81 mg tablet,delayed 81 mg PO DAILY 90 days #90 tabs 11/25/22 release prednisone 5 mg tablet 5 mg PO DAILY for asthma #30 tabs 11/26/22 Ventolin HFA 90 mcg/actuation 1 inh inhalation QID PRN shortness 12/14/22 aerosol inhaler (albuterol sulfate) of breath or wheezing 30 days #18 grams lamotrigine 25 mg tablet 25 mg PO BID 90 days #180 tabs 12/18/22 oxycodone 5 mg tablet 5 mg PO Q8H PRN pain #7 tabs 12/18/22 trazodone 100 mg tablet 100 mg PO BEDTIME 90 days #90 tabs 12/18/22 Allergies Allergy/AdvReac Type Severity Reaction Status Date / Time dog dander [DOGS] Allergy Intermediate Respiratory Verified 12/17/22 11:08 distress ibuprofen [Ibuprofen] Allergy Intermediate STOMACH Verified 12/17/22 11:08 UPSET, abdominal pain, nausea and vomiting shellfish derived Allergy Intermediate Hives Verified 12/17/22 11:08 etanercept [From Enbrel] AdvReac Intermediate Facial Verified 12/17/22 11:08 Swelling metformin AdvReac Intermediate diarrhea Verified 12/17/22 11:08 metronidazole [From FLAGYL] AdvReac Intermediate DIARRHEA Verified 12/17/22 11:08 prednisone AdvReac Intermediate hallucinations, Verified 12/17/22 11:08 higher than 20 Review of Systems Review of Systems: Positive upper back pain Positive right flank pain Yes all other systems are reviewed and are negative [facility] Past Medical History Attestation statement: The following information was validated with the patient. Medical History Allergic rhinitis Anxiety Atherosclerotic cardiovascular disease Bipolar 1 disorder, depressed Bloody diarrhea Breast pain, right Bronchial asthma Colitis COPD (chronic obstructive pulmonary disease) COPD exacerbation Cough CVA (cerebral vascular accident) Depression Diabetes type 2, uncontrolled Dyslipidemia Fibromyalgia HLD (hyperlipidemia) Hospital discharge follow-up HTN (hypertension) Hyperkalemia Hyperlipidemia LDL goal <100 Hyperparathyroidism Hypertension Hypothyroid IDDM (insulin dependent diabetes mellitus) Infiltrating ductal carcinoma of left breast, stage 2 Insomnia Irritable bowel Osteoporosis PAD (peripheral artery disease) Rash Reactive airways dysfunction syndrome Restrictive airway disease Seropositive rheumatoid arthritis T2DM (type 2 diabetes mellitus) Thyroid nodule Vitamin D deficiency Surgical History H/O cardiac catheterization H/O: hysterectomy History of bronchoscopy History of bunionectomy of both great toes History of colonoscopy History of esophagogastroduodenoscopy (EGD) History of lumpectomy of left breast History of pubovaginal sling History of tubal ligation Hx of endoscopy Family History Family History Mother Diabetes HTN (hypertension) Uterus cancer Malignant tumor of head Breast cancer Father Diabetes HTN (hypertension) CVD (cardiovascular disease) Heart problem Maternal Aunt Breast cancer Brother Myocardial infarction S/P CABG x 4 Family/Other FH: mental illness Family/Other Lung cancer Other Mental health disorder Social History Social History Household Members: Other Household Members Other:: sister Housing: Apartment Are you a primary critical care cns to a significant other at home: No Do you presently have visiting nurse or other home services: Yes Alcohol intake: never Patient Tobacco Use Status: Current everyday Tobacco user Tobacco use type: Cigarette Years Smoked: 50 +/- Smoked in Last 30 Days: Yes e-Cigarette/Vaping Use: Never Used Second Hand Smoke Exposure: No Use of substances other than those prescribed or required for medical reasons: No Advance Directives: Yes Advance Directives on File: Yes Advance Directives Date on File: 12/22/21 service: No Current occupational status: disabled Current occupation: rt handed Cognitive needs: No Hearing needs: No Vision needs: Yes Physical Exam Vital Signs: Vital Signs: Last Vital Signs Temp 98.3 F 12/18/22 20:08 Pulse 94 12/18/22 20:08 Resp 18 12/18/22 20:08 BP 140/67 H 12/18/22 20:08 Pulse Ox 98 12/18/22 20:08 O2 Del Method 12/18/22 20:08 BMI result Body Mass Index 25.3 Appearance: Alert. Oriented X3. No acute distress. Eyes: Pupils equal, round and reactive to light. ENT: Pharynx normal. Neck: Normal inspection. Neck supple. No lymph nodes noted. No crepitus CVS: Normal heart rate and rhythm. Pulses normal. Normal S1 and S2 Respiratory: No respiratory distress. Breath sounds normal. No Wheezing. No rales Abdomen: Soft and nontender. No rigidity. No distention. good BS x4 Skin: Skin warm and dry. Normal skin color. Normal skin turgor. Extremities: No lower extremity edema. Neurovascular intact to all extremities. No Lacerations. No Rash Neuro: Oriented X 3. No motor deficit. No sensory deficit. Moving all extermities. No slurred speech Medications Administered Discontinued Medications Generic Name Dose Route Start Last Admin Trade Name Freq PRN Reason Stop Dose Admin Hydromorphone HCl 1 mg 12/18/22 18:45 12/18/22 19:07 Hydromorphone Hcl 1 Mg/Ml Syringe IVPUSH 12/18/22 18:46 1 mg ONCE ONE Administration Protocol Sodium Chloride 1,000 mls @ 999 mls/hr 12/18/22 19:00 12/18/22 21:06 Ns IV 12/18/22 20:00 Infused .Q1H1M ELDER Infusion Insulin Human Regular 5 unit 12/18/22 18:46 12/18/22 18:55 Insulin Regular, Human 100 Unit/Ml 3 Ml Vial 0.1 unit/kg (5 unit) 12/18/22 18:47 5 unit IVPUSH Administration ONCE ONE Iohexol 100 ml 12/18/22 20:07 12/18/22 20:07 Iohexol 350 Mg/Ml 100 Ml Infus..Btl IV 12/18/22 20:08 75 ml ONCE ONE Administration Medical Decision Making Medical Decision Making [facility] Narrative: Patient complaining of upper back pain sometimes worse with deep inspiration. Her D-dimer was negative. Making pulmonary emboli unlikely. Patient had pain that was extreme has a history of hypertension has a history of smoking. CTA of the chest abdomen pelvis done. There is no evidence of dissection. No evidence of pneumonia. No evidence rib fracture no evidence of pneumothorax. No evidence of intra-abdominal pathology. Patient's lab was reviewed. Her initial sugar was 439. This was corrected with IV fluid and insulin. Patient's last sugar is actually 73. Will give patient some sugar. Will recheck patient's sugar. Patient's troponin was negative. Patient's BMP was negative. There is no evidence for CAD there is no evidence for congestive heart failure. Patient to be discharged home after pain medication relief patient's symptoms. She is currently in stable condition. Differential Diagnosis Differential Diagnoses: The differential diagnosis associated with the presentation includes Dissection, pulmonary emboli, pneumonia, coronary artery disease, intra-abdominal pathology, pneumothorax Admission/Observation Consideration of admission/observation: Escalation of care including admission/observation considered Lab Data [facility] Lab Attestation statement: I reviewed the patient's lab results. 12/18/22 16:38 12/18/22 16:38 Labs: Lab Results 12/18/22 12/18/22 12/18/22 Range/Units 16:38 16:38 16:38 WBC 11.6 H (4.8-10.8) X10*3/uL RBC 4.47 (4.20-5.50) X10*6/uL Hgb 13.2 (12.0-16.0) g/dl Hct 39.1 (37.0-47.0) % MCV 87.5 (80.0-98.0) fL MCH 29.5 (27.0-33.0) pg MCHC 33.8 (31.0-35.0) g/dl RDW 13.5 (11.0-16.0) % Plt Count 270 D (160-400) X10*3/uL MPV 11.1 (9.4-12.3) fL Immature Gran % (Auto) 0.5 H (0.0-0.4) % Neut % (Auto) 62.1 (45-73) % Lymph % (Auto) 31.0 (20-40) % [place] % (Auto) 5.7 (2-11) % Eos % (Auto) 0.4 (0-4) % Baso % (Auto) 0.3 (0-2) % Lymph # (Auto) 3.6 (1.2-4.9) X10*3/uL [place] # (Auto) 0.7 (0.1-1.2) X10*3/uL Eos # (Auto) 0.1 (0.0-0.4) X10*3/uL Baso # (Auto) 0.0 (0.0-0.2) X10*3/uL Abs Immat Gran (auto) 0.06 H (0.00-0.03) X10*3/uL Absolute Neuts (auto) 7.2 (2.0-8.3) x10*3/uL Absolute Nucleated RBC 0.000 (0.0-0.012) X10*3/uL Nucleated RBC % (auto) 0.0 (0.0-0.2) /100WBC PT 12.7 (10.0-13.1) SEC INR 1.1 (0.9-1.1) APTT 28.4 (26.0-36.4) SEC D-Dimer High Sensitivty NG/ML Sodium 136 (135-145) mmol/L Potassium 3.7 (3.3-5.1) mmol/L Chloride 101 (96-108) mmol/L Carbon Dioxide 25 (22-29) mmol/L Anion Gap 14 (12-20) BUN 12 (9-16) mg/dL Creatinine 1.12 (0.5-1.4) mg/dL Estim Creat Clear Calc 37.4 Estimated GFR 50 Random Glucose 439 H* (60-115) mg/dL Calcium 9.3 D (8.4-10.2) mg/dL Total Bilirubin 0.2 (0.0-1.0) mg/dL AST 10 (5-31) U/L ALT 13 (0-31) U/L Alkaline Phosphatase 72 (39-117) U/L Troponin I High Sens (<3.5-17.0) ng/L B-Natriuretic Peptide (<100) pg/mL Total Protein 6.4 L (6.5-8.0) g/dL Albumin 3.9 (3.5-5.0) g/dL Acetone, Qual Negative (Negative) 12/18/22 12/18/22 12/18/22 Range/Units 16:38 16:38 16:38 WBC (4.8-10.8) X10*3/uL RBC (4.20-5.50) X10*6/uL Hgb (12.0-16.0) g/dl Hct (37.0-47.0) % MCV (80.0-98.0) fL MCH (27.0-33.0) pg MCHC (31.0-35.0) g/dl RDW (11.0-16.0) % Plt Count (160-400) X10*3/uL MPV (9.4-12.3) fL Immature Gran % (Auto) (0.0-0.4) % Neut % (Auto) (45-73) % Lymph % (Auto) (20-40) % [place] % (Auto) (2-11) % Eos % (Auto) (0-4) % Baso % (Auto) (0-2) % Lymph # (Auto) (1.2-4.9) X10*3/uL [place] # (Auto) (0.1-1.2) X10*3/uL Eos # (Auto) (0.0-0.4) X10*3/uL Baso # (Auto) (0.0-0.2) X10*3/uL Abs Immat Gran (auto) (0.00-0.03) X10*3/uL Absolute Neuts (auto) (2.0-8.3) x10*3/uL Absolute Nucleated RBC (0.0-0.012) X10*3/uL Nucleated RBC % (auto) (0.0-0.2) /100WBC PT (10.0-13.1) SEC INR (0.9-1.1) APTT (26.0-36.4) SEC D-Dimer High Sensitivty < 150 NG/ML Sodium (135-145) mmol/L Potassium (3.3-5.1) mmol/L Chloride (96-108) mmol/L Carbon Dioxide (22-29) mmol/L Anion Gap (12-20) BUN (9-16) mg/dL Creatinine (0.5-1.4) mg/dL Estim Creat Clear Calc Estimated GFR Random Glucose (60-115) mg/dL Calcium (8.4-10.2) mg/dL Total Bilirubin (0.0-1.0) mg/dL AST (5-31) U/L ALT (0-31) U/L Alkaline Phosphatase (39-117) U/L Troponin I High Sens 4.2 (<3.5-17.0) ng/L B-Natriuretic Peptide 12 (<100) pg/mL Total Protein (6.5-8.0) g/dL Albumin (3.5-5.0) g/dL Acetone, Qual (Negative) Independent Interpretation I performed an independent interpretation of an: EKG Interpretation: Sinus tachycardia heart rate is 120 FL QRS QT within normal limits is no acute ST segment elevation. External Record Review External record reviewed: Inpatient record Prescription Management I considered prescription management with: Pain Medication Percocet for short period of time Chronic Conditions Patient?s care impacted by: Diabetes and Hypertension Social Determinants Patient?s care significantly limited by Social Determinants of Health including: Problems related to primary support group Discharge Plan Discharge Clinical Impression: Back pain Patient Disposition: Home, Self-Care Instructions: Back Pain (ED) Prescriptions: New oxycodone 5 mg tablet 5 mg PO Q8H PRN (Reason: pain) Qty: 7 0RF Rx Instructions: Partial Fill upon patient request. No Action (DME) pen needle, diabetic [Comfort EZ Pen [place]] 31 gauge x 5/16 needle See Rx Instructions .ROUTE .MEDSUPPLY Qty: 200 11RF Rx Instructions: Use 1 pen needle 6 times a day (DME) lancets [FreeStyle Lancets] 28 gauge misc See Rx Instructions .Route Qty: 100 3RF Rx Instructions: Use 1 lancet once a day lubiprostone [Amitiza] 8 mcg capsule 8 mcg PO BID 30 Days Qty: 60 3RF insulin aspart U-100 [Novolog FlexPen U-100 Insulin] 100 unit/mL (3 mL) insulin pen 2 - 10 unit subcut TIDAC 30 Days Qty: 15 11RF Protocol: Insulin Correction Scale Less than or equal to 110 ---- Give (units): 0 111 to 150 Give (units): 0 151 to 200 Give (units): 2 201 to 250 Give (units): 4 251 to 300 Give (units): 6 301 to 350 Give (units): 8 Greater than 350 Give (units): 10 Call MD if Blood Glucose > : 350 Rx Instructions: Via sliding scale dicyclomine 10 mg capsule 10 mg PO TID PRN (Reason: for abdominal pain) 30 Days Qty: 30 1RF famotidine 20 mg tablet 20 mg PO BEDTIME 90 Days Qty: 90 1RF losartan 25 mg tablet 25 mg PO DAILY Qty: 90 0RF pregabalin [Lyrica] 200 mg capsule 200 mg PO BEDTIME Qty: 30 3RF ehhgkplfnb-kcmlnsgzhfmfj-jakq 50-325-40 mg tablet 1 tab PO Q6H PRN (Reason: pain) 30 Days Qty: 30 0RF pantoprazole 40 mg tablet,delayed release (DR/EC) 40 mg PO BID 90 Days Qty: 180 0RF aspirin 81 mg tablet,delayed release (DR/EC) 81 mg PO DAILY 90 Days Qty: 90 1RF prednisone 5 mg tablet 5 mg PO DAILY Qty: 30 1RF albuterol sulfate [Ventolin HFA] 90 mcg/actuation HFA aerosol inhaler 1 inh inhalation QID PRN (Reason: shortness of breath or wheezing) 30 Days Qty: 18 2RF lamotrigine 25 mg tablet 25 mg PO BID 90 Days Qty: 180 1RF trazodone 100 mg tablet 100 mg PO BEDTIME 90 Days Qty: 90 0RF ondansetron 4 mg tablet,disintegrating 4 mg PO Q8H PRN (Reason: nausea and vomiting) Qty: 14 0RF metoprolol tartrate 25 mg tablet 0.5 tab PO BID pregabalin 150 mg capsule 150 mg PO DAILY Trulicity 1.5 mg/0.5 mL pen injector 1.5 mg subcut TH@0900 letrozole 2.5 mg tablet 2.5 mg PO BEDTIME ipratropium-albuterol 0.5 mg-3 mg(2.5 mg base)/3 mL Solution For Nebulization 3 ml inhalation RQ4H WHILE AWAKE Qty: 180 0RF codeine-guaifenesin [Guaifenesin AC] 10-100 mg/5 mL liquid 5 ml PO Q6H PRN (Reason: cold symptoms) Qty: 120 0RF nitroglycerin 0.4 mg tablet, sublingual 0.4 mg sublingual Q5M PRN (Reason: Chest Pain) atorvastatin 80 mg tablet 80 mg PO DAILY 90 Days Qty: 90 1RF Rx Instructions: patient lost recent RX, please fill this as emergency RX this one time Brilinta 90 mg tablet 90 mg PO BID 90 Days Qty: 180 1RF Rx Instructions: Please fill Rx today, patient lost previous RX, fill as emergency this one time (DME) FreeStyle Lite Strips Strip MISCELLANEOUS DAILY Qty: 100 1RF Rx Instructions: Use 1 test strip three times a day insulin degludec [Tresiba FlexTouch U-100] 100 unit/mL (3 mL) insulin pen 20 unit subcut BEDTIME 90 Days Qty: 18 1RF Referrals: Adela Gipson MD [Primary Care Provider] -
[2022-12-18] MEDS: Insulin Regular, Human 100 UNIT/ML 3 ML VIAL IVPUSH (18:55)
[2022-12-18] MEDS: HYDROmorphone HCl 1 MG/ML SYRINGE IVPUSH (19:07)
[2022-12-18] MEDS: 0.9 % Sodium Chloride 1,000 ML 999 ML IV (19:31)
--- NOTE | 2022-12-18 20:04 | PC.NURSE ---
Addendum entered by Kia Peguero 12/18/22 21:47: this note from 1900 hrs Original Note: pt c/o of mid and lower back pain, denies, fall, denies overextension, pt states it just began hurting this morning and the pain continued to increase throughout the day aox4 pt is restless, pt cannot seem to find a way to sit comfortably provider aware meds to follow
[2022-12-18] MEDS: iohexoL 350 MG/ML 100 ML INFUS..BTL IV (20:07)
[2022-12-18 20:08] VITALS: BP 140/67; PULSE 94; RESP 18; TEMP 36.8; O2SAT 98
[2022-12-18 21:27] LABS: Glucose, Whole Blood 73 mg/dL (60-115)
--- NOTE | 2022-12-18 21:49 | PC.NURSE ---
discharge instructions given/explained, IV cath tip intact upon removal, ambulates safely/independently, no apparent distress, able to speak in full sentences, all questions answered
== END 2022-12-18 21:42 | disposition home or self-care (01) ==
PROVIDERS: Physician Assistant; Emergency Provider Emergency Medicine Emergency Medical Services; PCP Internal Medicine
DX: M54.6 Pain in thoracic spine (principal); E11.65 Type 2 diabetes mellitus with hyperglycemia; I10 Essential (primary) hypertension; E78.5 Hyperlipidemia, unspecified; E21.3 Hyperparathyroidism, unspecified; J44.9 Chronic obstructive pulmonary disease, unspecified; M05.9 Rheumatoid arthritis with rheumatoid factor, unspecified; G47.00 Insomnia, unspecified; C50.912 Malignant neoplasm of unspecified site of left female breast; E04.1 Nontoxic single thyroid nodule; F17.200 Nicotine dependence, unspecified, uncomplicated; Z86.73 Personal history of transient ischemic attack (TIA), and cerebral infarction without residual deficits; Z79.02 Long term (current) use of antithrombotics/antiplatelets; Z79.899 Other long term (current) drug therapy; Z79.4 Long term (current) use of insulin; Z79.82 Long term (current) use of aspirin
CPT/HCPCS: 36415; 71045; 71275; 72072; 74174; 80053; 82009; 82947; 83880; 84484; 85025; 85379; 85610; 85730; 93005; 96361; 96374; 96375; 99284; 99285; J1170; Q9967

== ENCOUNTER 2022-12-19 15:01 | Emergency (ER) | payer MEDICARE, MEDICAID, SELFPAY ==
[2022-09-19 10:26] VITALS: BP 100/64; BP 102/48; BP 110/70; BMI 25.5
[2022-12-19 15:08] VITALS: BP 132/94; PULSE 126; RESP 20; TEMP 36.6; O2SAT 97; BMI 24.4
--- NOTE | 2022-12-19 15:09 | ED_ITS ---
HPI - Back Pain/Injury General Chief Complaint: Back Pain/Injury <Jennifer Reynoso NP - Last Filed: 12/19/22 15:11> Stated Complaint: lower back pain and down the leg <Jennifer Reynoso NP - Last Filed: 12/19/22 15:11> Time Seen by Provider: 12/19/22 17:40 <Jennifer Reynoso NP - Last Filed: 12/19/22 15:11> Source: patient <JOSEF Sood Last Filed: 12/19/22 18:15> Mode of arrival: ambulatory <JOSEF Sood Last Filed: 12/19/22 18:15> Limitations: no limitations <JOSEF Sood Last Filed: 12/19/22 18:15> History of Present Illness HPI Narrative: 62-year-old female with a history of diabetes, hypertension, high cholesterol, smoker?and chronic back pain was presenting to the ER with complaints of acute on chronic back pain for the past few days worse today. Reports it is worse with movement. She reports it is all over her entire back and legs. She reports that she has never had pain this extreme. She reports that she was seen here yesterday and told that she had a muscle spasm and she has been taking Flexeril and the oxycodone as prescribed and little to no symptomatic relief. She denies any fevers, chills, dizziness, headaches, neck pain/stiffness, trouble swallowing or breathing, chest pain or shortness of breath, rashes, recent falls or trauma, paresthesias, saddle anesthesia, IV drug use, urinary bowel incontinence or retention dysuria, hematuria, abnormal vaginal discharge, diarrhea constipation, abdominal pain, flank pain or any other symptoms complaints or concerns at this time. <JOSEF Sood - Last Filed: 12/19/22 18:15> MD elicited complaint: back pain <JOSEF Sood Last Filed: 12/19/22 18:15> Pertinent past history: prior back pain <JOSEF Sodo Last Filed: 12/19/22 18:15> Onset (ago): day(s) <JOSEF Sood Last Filed: 12/19/22 18:15> Timing: constant <JOSEF Sood Last Filed: 12/19/22 18:15> Severity: moderate <JOSEF Sood - Last Filed: 12/19/22 18:15> Similar Symptoms Previously: Yes <JOSEF Sood - Last Filed: 12/19/22 18:15> Quality: aching, spasming and throbbing <JOSEF Sood - Last Filed: 12/19/22 18:15> Location: lumbar spine <JOSEF Sood - Last Filed: 12/19/22 18:15> Radiation: none <JOSEF Sood - Last Filed: 12/19/22 18:15> Exacerbating factors: movement, walking and lifting <JOSEF Sood - Last Filed: 12/19/22 18:15> Relieving factors: none <JOSEF Sood - Last Filed: 12/19/22 18:15> Context: unknown <JOSEF Sood - Last Filed: 12/19/22 18:15> Associated symptoms: denies other symptoms <JOSEF Sood - Last Filed: 12/19/22 18:15> Treatments prior to arrival: other (See above) <JOSEF Sood - Last Filed: 12/19/22 18:15> Work related injury: No <JOSEF Sood - Last Filed: 12/19/22 18:15> Related Data Home Medications: Home Medications Medication Instructions Recorded Confirmed nitroglycerin 0.4 mg sublingual 0.4 mg sublingual Q5M PRN Chest 01/03/22 12/17/22 tablet Pain dulaglutide 1.5 mg/0.5 mL 1.5 mg subcut TH@0900 11/08/22 12/17/22 subcutaneous pen injector (Trulicity) letrozole 2.5 mg tablet 2.5 mg PO BEDTIME 11/08/22 12/17/22 metoprolol tartrate 25 mg tablet 0.5 tab PO BID 11/08/22 12/17/22 pregabalin 150 mg capsule 150 mg PO DAILY 11/08/22 12/17/22 Previous Rx's Medication Instructions Recorded atorvastatin 80 mg tablet 80 mg PO DAILY 90 days #90 tabs 02/06/22 ticagrelor 90 mg tablet (Brilinta) 90 mg PO BID 90 days #180 tabs 02/06/22 lancets 28 gauge (FreeStyle #100 ea 06/07/22 Lancets) pen needle, diabetic 31 gauge x #200 ea 06/07/22 5/16 (Comfort EZ Pen Clemons) ondansetron 4 mg disintegrating 4 mg PO Q8H PRN nausea and 06/29/22 tablet vomiting #14 tabs lubiprostone 8 mcg capsule 8 mcg PO BID 30 days #60 caps 07/18/22 (Amitiza) Novolog FlexPen U-100 Insulin 100 2 - 10 unit subcut TIDAC 30 days 08/28/22 unit/mL (3 mL) subcutaneous #15 mL (insulin aspart U-100) dicyclomine 10 mg capsule 10 mg PO TID PRN for abdominal 08/28/22 pain 30 days #30 caps famotidine 20 mg tablet 20 mg PO BEDTIME 90 days #90 tabs 09/07/22 losartan 25 mg tablet 25 mg PO DAILY #90 tabs 09/07/22 blood sugar diagnostic (FreeStyle #100 ea 09/26/22 Lite Strips) pregabalin 200 mg capsule (Lyrica) 200 mg PO BEDTIME #30 caps 10/01/22 wsnwwqcvzp-huhoockkjnwex-ysztnuqr 1 tab PO Q6H PRN pain 30 days #30 10/02/22 50 mg-325 mg-40 mg tablet tabs pantoprazole 40 mg tablet,delayed 40 mg PO BID 90 days #180 tabs 10/18/22 release insulin degludec 100 unit/mL (3 20 unit (0.2 mL) subcut BEDTIME 90 11/07/22 mL) subcutaneous pen (Tresiba days #18 mL FlexTouch U-100 insulin) ipratropium 0.5 mg-albuterol 3 mg 3 ml inhalation RQ4H WHILE AWAKE 11/13/22 (2.5 mg base)/3 mL nebulization #180 mL soln codeine 10 mg-guaifenesin 100 mg/5 5 ml PO Q6H PRN cold symptoms #120 11/22/22 mL oral liquid (Guaifenesin AC) mL aspirin 81 mg tablet,delayed 81 mg PO DAILY 90 days #90 tabs 11/25/22 release prednisone 5 mg tablet 5 mg PO DAILY for asthma #30 tabs 11/26/22 Ventolin HFA 90 mcg/actuation 1 inh inhalation QID PRN shortness 12/14/22 aerosol inhaler (albuterol sulfate) of breath or wheezing 30 days #18 grams lamotrigine 25 mg tablet 25 mg PO BID 90 days #180 tabs 12/18/22 oxycodone 5 mg tablet 5 mg PO Q8H PRN pain #7 tabs 12/18/22 trazodone 100 mg tablet 100 mg PO BEDTIME 90 days #90 tabs 12/18/22 ketorolac 10 mg tablet 10 mg PO Q8H #14 tabs 12/19/22 oxycodone 5 mg tablet 5 mg PO Q6H PRN pain #7 tabs 12/19/22 <Jennifer Reynoso NP - Last Filed: 12/19/22 15:11> Allergies/Adverse Reactions: Allergies Allergy/AdvReac Type Severity Reaction Status Date / Time dog dander [DOGS] Allergy Intermediate Respiratory Verified 12/17/22 11:08 distress ibuprofen [Ibuprofen] Allergy Intermediate STOMACH Verified 12/17/22 11:08 UPSET, abdominal pain, nausea and vomiting shellfish derived Allergy Intermediate Hives Verified 12/17/22 11:08 etanercept [From Enbrel] AdvReac Intermediate Facial Verified 12/17/22 11:08 Swelling metformin AdvReac Intermediate diarrhea Verified 12/17/22 11:08 metronidazole [From FLAGYL] AdvReac Intermediate DIARRHEA Verified 12/17/22 11:08 prednisone AdvReac Intermediate hallucinations, Verified 12/17/22 11:08 higher than 20 <Jennifer Reynoso NP - Last Filed: 12/19/22 15:11> Review of Systems Review of Systems: Constitutional : No trauma, No Weight loss, No Fever, No Chills, ENT/Mouth : No Hearing loss, No Ear Pain, No Nasal Congestion, No Sinus Pain, No Hoarseness, No sore throat, No Rhinorrhea, No Swallowing Difficulty Cardiovascular : No Chest Pain, No SOB Respiratory : No Cough, No Dyspnea Gastrointestinal : No Nausea, No Vomiting, No Diarrhea, No abdominal Pain, No Hematochezia, No Melena Genitourinary : No Dysuria, No Urinary Frequency, No Hematuria, No Urinary or Bowel Incontinence/retention Musculoskeletal : + Back pain, No neck pain, No joint stiffness, No joint swelling Skin : No Skin Lesions, No rash or signs of infection Neuro : No Weakness, No radiation, No Numbness, No Paresthesias, No headache, no loss of bowel or bladder incontinence, no saddle anesthesia, Focal weakness, No radiation Denies history of IV drug usage. <JOSEF Sood - Last Filed: 12/19/22 18:15 > Yes all other systems are reviewed and are negative <JOSEF Sood - Last Filed: 12/19/22 18:15> [facility] Past Medical History Attestation statement: The following information was validated with the patient. <JOSEF Sood - Last Filed: 12/19/22 18:15> Source: old records reviewed and nursing notes reviewed <JOSEF Sood - Last Filed: 12/19/22 18:15> Medical History: Medical History Allergic rhinitis Anxiety Atherosclerotic cardiovascular disease Bipolar 1 disorder, depressed Bloody diarrhea Breast pain, right Bronchial asthma Colitis COPD (chronic obstructive pulmonary disease) COPD exacerbation Cough CVA (cerebral vascular accident) Depression Diabetes type 2, uncontrolled Dyslipidemia Fibromyalgia HLD (hyperlipidemia) Hospital discharge follow-up HTN (hypertension) Hyperkalemia Hyperlipidemia LDL goal <100 Hyperparathyroidism Hypertension Hypothyroid IDDM (insulin dependent diabetes mellitus) Infiltrating ductal carcinoma of left breast, stage 2 Insomnia Irritable bowel Osteoporosis PAD (peripheral artery disease) Rash Reactive airways dysfunction syndrome Restrictive airway disease Seropositive rheumatoid arthritis T2DM (type 2 diabetes mellitus) Thyroid nodule Vitamin D deficiency <Jennifer Reynoso NP - Last Filed: 12/19/22 15:11> Surgical History: Surgical History H/O cardiac catheterization H/O: hysterectomy History of bronchoscopy History of bunionectomy of both great toes History of colonoscopy History of esophagogastroduodenoscopy (EGD) History of lumpectomy of left breast History of pubovaginal sling History of tubal ligation Hx of endoscopy <Jennifer Reynoso NP - Last Filed: 12/19/22 15:11> Family History Family History: Family History Mother Diabetes HTN (hypertension) Uterus cancer Malignant tumor of head Breast cancer Father Diabetes HTN (hypertension) CVD (cardiovascular disease) Heart problem Maternal Aunt Breast cancer Brother Myocardial infarction S/P CABG x 4 Family/Other FH: mental illness Family/Other Lung cancer Other Mental health disorder <Jennifer Reynoso NP - Last Filed: 12/19/22 15:11> Social History Social History: Social History Household Members: Other Household Members Other:: sister Housing: Apartment Are you a primary caregivers homecare to a significant other at home: No Do you presently have visiting nurse or other home services: Yes Alcohol intake: never Patient Tobacco Use Status: Current everyday Tobacco user Tobacco use type: Cigarette Years Smoked: 50 +/- e-Cigarette/Vaping Use: Never Used Second Hand Smoke Exposure: No Advance Directives: Yes Advance Directives on File: Yes Advance Directives Date on File: 12/22/21 service: No Current occupational status: disabled Current occupation: rt handed Cognitive needs: No Hearing needs: No Vision needs: Yes <Jennifer Reynoso NP - Last Filed: 12/19/22 15:11> Physical Exam Vital Signs: Vital Signs: Last Vital Signs Temp 98 F 12/19/22 15:08 Pulse 126 H 12/19/22 15:08 Resp 20 12/19/22 15:08 BP 132/94 H 12/19/22 15:08 Pulse Ox 97 12/19/22 15:08 O2 Del Method 12/19/22 15:08 BMI result Body Mass Index 24.4 <Jennifer Reynoso NP - Last Filed: 12/19/22 15:11> Vital Signs: Last Vital Signs Temp 98 F 12/19/22 15:08 Pulse 126 H 12/19/22 15:08 Resp 20 12/19/22 15:08 BP 132/94 H 12/19/22 15:08 Pulse Ox 97 12/19/22 15:08 O2 Del Method 12/19/22 15:08 BMI result Body Mass Index 24.4 vital signs have been reviewed as normal and appeared to be correct. Blood pressure normal. Heart rate normal. Respiration rate normal. Temperature normal. Oxygen saturation normal. <JOSEF Sood - Last Filed: 12/19/22 18:15> Appearance: Alert. Oriented X3. No acute distress. Head: Normal external exam. Normocephalic. Atraumatic. No Raya signs noted. No raccoon eyes noted Eyes: PERRLA. EOMI. Conjunctiva and sclera normal. Eyelids normal. ENT: EAC normal. TM's Normal. Pharynx normal. Uvula midline. Moist mucous membranes. No trismus noted. No drooling noted. No muffled voice noted. Neck: Normal inspection. Neck supple. FROM. No adenopathy. Thyroid Normal. No meningeal signs. No neck mass noted. CVS: Normal heart rate and rhythm. Heart sound normal. No murmurs noted. Pulses normal throughout. Respiratory: No respiratory distress. Painless inspiration. Breath sounds normal. No wheezes/rales/rhonchi noted. Chest nontender. No accessory muscle usage noted or decreased air movement noted. Abdomen: Soft and nontender. Bowel sounds normal in all 4 quadrants. No distention noted. No organomegaly noted. No visible injury noted. Back: No CVA tenderness. Full range of motion noted. No obvious deformities, or edema. Mild para-spinal muscular tenderness from lumbar region to coccyx. Full ROM in back and lower extremities. 5/5 strength hip extension/flexion, abduction, adduction. Mild Lumbar pain with hip flexion against resistance. Straight leg raise test negative on right; Straight leg raise test negative on left; Reflexes normal ankle and knee bilaterally; EHL motor strength normal bilaterally. No rashes/lesion/induration/fluctuance or signs infection noted. Skin: Skin warm and dry. Normal skin color. Normal skin turgor. No rashes/lesions/lacerations noted. Extremities: No lower extremity edema. Extremities exhibit normal range of motion. Extremities nontender. Neuro: Oriented X 3. No motor deficit. No sensory deficit. Reflexes normal. Patient has a normal steady gait. <JOSEF Sood - Last Filed: 12/19/22 18:15> Course Course Course Narrative: This is a rapid medical exam. Deferred additional HPI, ROS, PE to primary provider. 62yo female with history of COPD, DM, RA here with right sided back pain starts on the top and goes all the way down my leg . Seen here yesterday for same symptoms. Will check labs, UA. VSS <Jennifer Pascucci, [employer]VANC[employer] MANUFACTURING ENGINEER - Last Filed: 12/19/22 15:11> This is a rapid medical exam. Deferred additional HPI, ROS, PE to primary provider. 62yo female with history of COPD, DM, RA here with right sided back pain starts on the top and goes all the way down my leg . Seen here yesterday for same symptoms. Will check labs, UA. VSS <JOSEF Sood - Last Filed: 12/19/22 18:15> Reevaluation(s) Reevaluation #1: Pt c likely muscular pain, but could be herniated disc. Neuro exam shows no deficits. Not c/w AAA/epidural abscess/dissection.No high risk Hx (Incont, fever, immunosupp, recent surgery/LP, coag, signif trauma, wt loss, puls mass, hx/o Ca, TB, or IVDU) to warrant MRI/CT today. Not c/w Pyelo/UTI/kidney stone/spinal fx. Not cauda equina syndrome. Imaging not currently indicated. DC c meds and f/u. <JOSEF Sood - Last Filed: 12/19/22 18:15> Medications Administered Discontinued Medications Generic Name Dose Route Start Last Admin Trade Name Freq PRN Reason Stop Dose Admin Diazepam 2.5 mg 12/19/22 17:45 12/19/22 17:57 Diazepam 10 Mg/2 Ml Cartridge IM 12/19/22 17:46 2.5 mg STAT STA Administration Ketorolac Tromethamine 60 mg 12/19/22 17:45 12/19/22 17:58 Ketorolac Tromethamine 60 Mg/2 Ml Vial IM 12/19/22 17:46 60 mg ONCE ONE Administration <Jennifer Reynoso NP - Last Filed: 12/19/22 15:11> Medications Administered Discontinued Medications Generic Name Dose Route Start Last Admin Trade Name Freq PRN Reason Stop Dose Admin Diazepam 2.5 mg 12/19/22 17:45 12/19/22 17:57 Diazepam 10 Mg/2 Ml Cartridge IM 12/19/22 17:46 2.5 mg STAT STA Administration Ketorolac Tromethamine 60 mg 12/19/22 17:45 12/19/22 17:58 Ketorolac Tromethamine 60 Mg/2 Ml Vial IM 12/19/22 17:46 60 mg ONCE ONE Administration <JOSEF Sood - Last Filed: 12/19/22 18:15> Medical Decision Making Lab Data MDM Lab Attestation statement: I reviewed the patient's lab results. <JOSEF Sood - Last Filed: 12/19/22 18:15> Result Diagrams: 12/19/22 16:34 12/19/22 16:34 <Jennifer Reynoso NP - Last Filed: 12/19/22 15:11> Labs: Lab Results 12/19/22 12/19/22 Range/Units 16:34 16:34 WBC 9.1 (4.8-10.8) X10*3/uL RBC 4.31 (4.20-5.50) X10*6/uL Hgb 12.4 (12.0-16.0) g/dl Hct 37.2 (37.0-47.0) % MCV 86.3 (80.0-98.0) fL MCH 28.8 (27.0-33.0) pg MCHC 33.3 (31.0-35.0) g/dl RDW 13.8 (11.0-16.0) % Plt Count 237 (160-400) X10*3/uL MPV 10.7 (9.4-12.3) fL Immature Gran % (Auto) 0.4 (0.0-0.4) % Neut % (Auto) 55.4 (45-73) % Lymph % (Auto) 36.4 (20-40) % Lares % (Auto) 7.0 (2-11) % Eos % (Auto) 0.4 (0-4) % Baso % (Auto) 0.4 (0-2) % Lymph # (Auto) 3.3 (1.2-4.9) X10*3/uL Lares # (Auto) 0.6 (0.1-1.2) X10*3/uL Eos # (Auto) 0.0 (0.0-0.4) X10*3/uL Baso # (Auto) 0.0 (0.0-0.2) X10*3/uL Abs Immat Gran (auto) 0.04 H (0.00-0.03) X10*3/uL Absolute Neuts (auto) 5.0 (2.0-8.3) x10*3/uL Absolute Nucleated RBC 0.000 (0.0-0.012) X10*3/uL Nucleated RBC % (auto) 0.0 (0.0-0.2) /100WBC Sodium 136 (135-145) mmol/L Potassium 3.4 (3.3-5.1) mmol/L Chloride 104 (96-108) mmol/L Carbon Dioxide 25 (22-29) mmol/L Anion Gap 10 L (12-20) BUN 7 L (9-16) mg/dL Creatinine 0.81 (0.5-1.4) mg/dL Estim Creat Clear Calc 53.3 Estimated GFR > 60 Random Glucose 329 H (60-115) mg/dL Calcium 8.9 (8.4-10.2) mg/dL Total Bilirubin 0.3 (0.0-1.0) mg/dL Direct Bilirubin < 0.2 (0.0-0.5) mg/dL AST 11 (5-31) U/L ALT 13 (0-31) U/L Alkaline Phosphatase 72 (39-117) U/L Total Protein 6.3 L (6.5-8.0) g/dL Albumin 3.9 (3.5-5.0) g/dL <Jennifer Reynoso, ADVANC[employer] MANUFACTURING ENGINEER - Last Filed: 12/19/22 15:11> Lab Results 12/19/22 12/19/22 Range/Units 16:34 16:34 WBC 9.1 (4.8-10.8) X10*3/uL RBC 4.31 (4.20-5.50) X10*6/uL Hgb 12.4 (12.0-16.0) g/dl Hct 37.2 (37.0-47.0) % MCV 86.3 (80.0-98.0) fL MCH 28.8 (27.0-33.0) pg MCHC 33.3 (31.0-35.0) g/dl RDW 13.8 (11.0-16.0) % Plt Count 237 (160-400) X10*3/uL MPV 10.7 (9.4-12.3) fL Immature Gran % (Auto) 0.4 (0.0-0.4) % Neut % (Auto) 55.4 (45-73) % Lymph % (Auto) 36.4 (20-40) % Lares % (Auto) 7.0 (2-11) % Eos % (Auto) 0.4 (0-4) % Baso % (Auto) 0.4 (0-2) % Lymph # (Auto) 3.3 (1.2-4.9) X10*3/uL Lares # (Auto) 0.6 (0.1-1.2) X10*3/uL Eos # (Auto) 0.0 (0.0-0.4) X10*3/uL Baso # (Auto) 0.0 (0.0-0.2) X10*3/uL Abs Immat Gran (auto) 0.04 H (0.00-0.03) X10*3/uL Absolute Neuts (auto) 5.0 (2.0-8.3) x10*3/uL Absolute Nucleated RBC 0.000 (0.0-0.012) X10*3/uL Nucleated RBC % (auto) 0.0 (0.0-0.2) /100WBC Sodium 136 (135-145) mmol/L Potassium 3.4 (3.3-5.1) mmol/L Chloride 104 (96-108) mmol/L Carbon Dioxide 25 (22-29) mmol/L Anion Gap 10 L (12-20) BUN 7 L (9-16) mg/dL Creatinine 0.81 (0.5-1.4) mg/dL Estim Creat Clear Calc 53.3 Estimated GFR > 60 Random Glucose 329 H (60-115) mg/dL Calcium 8.9 (8.4-10.2) mg/dL Total Bilirubin 0.3 (0.0-1.0) mg/dL Direct Bilirubin < 0.2 (0.0-0.5) mg/dL AST 11 (5-31) U/L ALT 13 (0-31) U/L Alkaline Phosphatase 72 (39-117) U/L Total Protein 6.3 L (6.5-8.0) g/dL Albumin 3.9 (3.5-5.0) g/dL <JOSEF Sood - Last Filed: 12/19/22 18:15> Discharge Plan Discharge Clinical Impression: Lumbar back pain, Muscle spasm <Jennifer Reynoso NP - Last Filed: 12/19/22 15:11> Patient Disposition: Home, Self-Care <Jennifer Reynoso NP - Last Filed: 12/19/22 15:11> Instructions: Muscle Spasm (ED) <Jennifer Reynoso NP - Last Filed: 12/19/22 15:11> Prescriptions: New ketorolac 10 mg tablet 10 mg PO Q8H Qty: 14 0RF Rx Instructions: Patient received the 1st dose in the ER by IM and tolerated well No Action (DME) pen needle, diabetic [Comfort EZ Pen Clemons] 31 gauge x 5/16 needle See Rx Instructions .ROUTE .MEDSUPPLY Qty: 200 11RF Rx Instructions: Use 1 pen needle 6 times a day (DME) lancets [FreeStyle Lancets] 28 gauge misc See Rx Instructions .Route Qty: 100 3RF Rx Instructions: Use 1 lancet once a day lubiprostone [Amitiza] 8 mcg capsule 8 mcg PO BID 30 Days Qty: 60 3RF insulin aspart U-100 [Novolog FlexPen U-100 Insulin] 100 unit/mL (3 mL) insulin pen 2 - 10 unit subcut TIDAC 30 Days Qty: 15 11RF Protocol: Insulin Correction Scale Less than or equal to 110 ---- Give (units): 0 111 to 150 Give (units): 0 151 to 200 Give (units): 2 201 to 250 Give (units): 4 251 to 300 Give (units): 6 301 to 350 Give (units): 8 Greater than 350 Give (units): 10 Call MD if Blood Glucose > : 350 Rx Instructions: Via sliding scale dicyclomine 10 mg capsule 10 mg PO TID PRN (Reason: for abdominal pain) 30 Days Qty: 30 1RF famotidine 20 mg tablet 20 mg PO BEDTIME 90 Days Qty: 90 1RF losartan 25 mg tablet 25 mg PO DAILY Qty: 90 0RF pregabalin [Lyrica] 200 mg capsule 200 mg PO BEDTIME Qty: 30 3RF kmlgghksli-deplvwzxpuoua-zqdi 50-325-40 mg tablet 1 tab PO Q6H PRN (Reason: pain) 30 Days Qty: 30 0RF pantoprazole 40 mg tablet,delayed release (DR/EC) 40 mg PO BID 90 Days Qty: 180 0RF aspirin 81 mg tablet,delayed release (DR/EC) 81 mg PO DAILY 90 Days Qty: 90 1RF prednisone 5 mg tablet 5 mg PO DAILY Qty: 30 1RF albuterol sulfate [Ventolin HFA] 90 mcg/actuation HFA aerosol inhaler 1 inh inhalation QID PRN (Reason: shortness of breath or wheezing) 30 Days Qty: 18 2RF lamotrigine 25 mg tablet 25 mg PO BID 90 Days Qty: 180 1RF trazodone 100 mg tablet 100 mg PO BEDTIME 90 Days Qty: 90 0RF ondansetron 4 mg tablet,disintegrating 4 mg PO Q8H PRN (Reason: nausea and vomiting) Qty: 14 0RF metoprolol tartrate 25 mg tablet 0.5 tab PO BID pregabalin 150 mg capsule 150 mg PO DAILY Trulicity 1.5 mg/0.5 mL pen injector 1.5 mg subcut TH@0900 letrozole 2.5 mg tablet 2.5 mg PO BEDTIME ipratropium-albuterol 0.5 mg-3 mg(2.5 mg base)/3 mL Solution For Nebulization 3 ml inhalation RQ4H WHILE AWAKE Qty: 180 0RF codeine-guaifenesin [Guaifenesin AC] 10-100 mg/5 mL liquid 5 ml PO Q6H PRN (Reason: cold symptoms) Qty: 120 0RF oxycodone 5 mg tablet 5 mg PO Q8H PRN (Reason: pain) Qty: 7 0RF Rx Instructions: Partial Fill upon patient request. oxycodone 5 mg tablet 5 mg PO Q6H PRN (Reason: pain) Qty: 7 0RF Rx Instructions: Partial Fill upon patient request. nitroglycerin 0.4 mg tablet, sublingual 0.4 mg sublingual Q5M PRN (Reason: Chest Pain) atorvastatin 80 mg tablet 80 mg PO DAILY 90 Days Qty: 90 1RF Rx Instructions: patient lost recent RX, please fill this as emergency RX this one time Brilinta 90 mg tablet 90 mg PO BID 90 Days Qty: 180 1RF Rx Instructions: Please fill Rx today, patient lost previous RX, fill as emergency this one time (DME) FreeStyle Lite Strips Strip MISCELLANEOUS DAILY Qty: 100 1RF Rx Instructions: Use 1 test strip three times a day insulin degludec [Tresiba FlexTouch U-100] 100 unit/mL (3 mL) insulin pen 20 unit subcut BEDTIME 90 Days Qty: 18 1RF <Jennifer Reynoso NP - Last Filed: 12/19/22 15:11> Referrals: Adela Gipson MD [Primary Care Provider] - 2 days <Jennifer Reynoso NP - Last Filed: 12/19/22 15:11>
[2022-12-19 16:40] LABS: MANUAL DIFF FLAG NO
[2022-12-19 16:42] LABS: Basophils Percent Auto 0.4 % (0-2); Eosinophils Percent Auto 0.4 % (0-4); Hematocrit 37.2 % (37.0-47.0); Hemoglobin 12.4 g/dl (12.0-16.0); Imm Gran Abs Auto 0.04 X10*3/uL (0.00-0.03); Imm Gran Pct Auto 0.4 % (0.0-0.4); Lymphocytes Absolute Auto 3.3 X10*3/uL (1.2-4.9); Lymphocytes Percent Auto 36.4 % (20-40); Mean Corpuscular HGB Conc 33.3 g/dl (31.0-35.0); Mean Corpuscular Hemoglobin 28.8 pg (27.0-33.0); Mean Corpuscular Volume 86.3 fL (80.0-98.0); Mean Platelet Volume 10.7 fL (9.4-12.3); Monocytes Absolute Auto 0.6 X10*3/uL (0.1-1.2); Neutrophils Percent Auto 55.4 % (45-73); Platelet Count 237 X10*3/uL (160-400); Red Blood Count 4.31 X10*6/uL (4.20-5.50); Red Cell Distribution Width 13.8 % (11.0-16.0); White Blood Count 9.1 X10*3/uL (4.8-10.8)
[2022-12-19 17:00] LABS: Alanine Aminotransferase 13 U/L (0-31); Albumin Level 3.9 g/dL (3.5-5.0); Alkaline Phosphatase 72 U/L (39-117); Anion Gap 10 (12-20); Aspartate Amino Transferase 11 U/L (5-31); Bilirubin Direct < 0.2 mg/dL (0.0-0.5); Bilirubin Total 0.3 mg/dL (0.0-1.0); Blood Urea Nitrogen 7 mg/dL (9-16); Calcium 8.9 mg/dL (8.4-10.2); Carbon Dioxide 25 mmol/L (22-29); Chloride 104 mmol/L (96-108); Creatinine Clr Calc Pharmacy 53.3; Estimated Glomerular Filt Rate > 60; Glucose Random 329 mg/dL (60-115); Potassium 3.4 mmol/L (3.3-5.1); Sodium 136 mmol/L (135-145); Total Protein 6.3 g/dL (6.5-8.0)
[2022-12-19] MEDS: diazePAM 10 MG/2 ML CARTRIDGE 2.5 MG IM (17:57)
[2022-12-19] MEDS: Ketorolac Tromethamine 60 MG/2 ML VIAL IM (17:58)
--- NOTE | 2022-12-19 18:01 | PC.NURSE ---
pt reports 10/10 pain in right side. medicated for pain Ketorolac in right deltoid, valium in left deltoid.
[2022-12-19 18:09] VITALS: BP 179/97; PULSE 105; RESP 16; O2SAT 97
== END 2022-12-19 18:22 | disposition home or self-care (01) ==
PROVIDERS: Nurse Practitioner Family; Emergency Provider Emergency Medicine; PCP Internal Medicine
DX: M54.50 Low back pain, unspecified (principal); M79.605 Pain in left leg; M79.604 Pain in right leg; Z79.899 Other long term (current) drug therapy
CPT/HCPCS: 36415; 80048; 80076; 85025; 96372; 99284; J1885; J3360

== ENCOUNTER 2022-12-21 11:03 | Outpatient (REF) | payer MEDICARE, MEDICAID, SELFPAY ==
[2022-09-19 10:26] VITALS: BP 100/64; BP 102/48; BP 110/70; BMI 25.5
--- NOTE | ~2022-12-21 | US_ITS ---
EXAMINATION: US DIAGNOSTIC ULTRASOUND BREAST, LEFT CLINICAL INFORMATION: Palpable region with pain left breast 1 o'clock position and 5 o'clock position. COMPARISON: Mammography of 09/26/2022 and studies dating back to 11/03/2019. TECHNIQUE: Ultrasound of the breast is performed with real-time bernal scale imaging and color Doppler. FINDINGS: There is no focal suspicious finding. There is no solid mass, architectural abnormality, duct ectasia, or edema in the soft tissue planes. Scanning was performed where patient indicated. The 5 o'clock location corresponds to a region of scar following lumpectomy from 11/26/2018. Results are discussed with the patient at time of visit. US/US breast LT limited IMPRESSION: No suspicious left breast ultrasound findings identified. ASSESSMENT: BI-RADS 2: Benign. RECOMMENDATION: Routine annual mammography screening. This patient's information was entered into a reminder system with a target due date for their next mammogram.
== END 2022-12-21 11:04 | disposition home or self-care (01) ==
LOC: HO.MAMMO 11:03
PROVIDERS: Visit Provider Internal Medicine
DX: N63.25 Unspecified lump in the left breast, overlapping quadrants (principal)
CPT/HCPCS: 76642

== ENCOUNTER 2022-12-27 10:45 | Outpatient (REF) | payer MEDICARE, MEDICAID, SELFPAY ==
[2022-09-19 10:26] VITALS: BP 100/64; BP 102/48; BP 110/70; BMI 25.5
[2022-12-27 11:02] LABS: MANUAL DIFF FLAG NO
[2022-12-27 12:23] LABS: Basophils Percent Auto 0.5 % (0-2); Eosinophils Absolute Auto 0.1 X10*3/uL (0.0-0.4); Eosinophils Percent Auto 0.9 % (0-4); Hematocrit 42.8 % (37.0-47.0); Hemoglobin 13.9 g/dl (12.0-16.0); Imm Gran Abs Auto 0.05 X10*3/uL (0.00-0.03); Imm Gran Pct Auto 0.6 % (0.0-0.4); Lymphocytes Absolute Auto 2.6 X10*3/uL (1.2-4.9); Lymphocytes Percent Auto 30.3 % (20-40); Mean Corpuscular HGB Conc 32.5 g/dl (31.0-35.0); Mean Corpuscular Hemoglobin 28.1 pg (27.0-33.0); Mean Corpuscular Volume 86.6 fL (80.0-98.0); Mean Platelet Volume 11.4 fL (9.4-12.3); Monocytes Absolute Auto 0.6 X10*3/uL (0.1-1.2); Monocytes Percent Auto 7.3 % (2-11); Neutrophils Absolute Auto 5.1 x10*3/uL (2.0-8.3); Neutrophils Percent Auto 60.4 % (45-73); Platelet Count 307 X10*3/uL (160-400); Red Blood Count 4.94 X10*6/uL (4.20-5.50); Red Cell Distribution Width 13.7 % (11.0-16.0); White Blood Count 8.5 X10*3/uL (4.8-10.8)
[2022-12-27 12:52] LABS: Alanine Aminotransferase 13 U/L (0-31); Albumin Level 4.1 g/dL (3.5-5.0); Alkaline Phosphatase 68 U/L (39-117); Anion Gap 15 (12-20); Aspartate Amino Transferase 11 U/L (5-31); Bilirubin Total 0.3 mg/dL (0.0-1.0); Blood Urea Nitrogen 11 mg/dL (9-16); C Reactive Protein 0.47 mg/dL (< or = 0.50); Calcium 9.7 mg/dL (8.4-10.2); Carbon Dioxide 24 mmol/L (22-29); Chloride 104 mmol/L (96-108); Cholesterol 204 mg/dL; Estimated Average Glucose 275 mg/dL; Estimated Glomerular Filt Rate > 60; Glucose Random 161 mg/dL (60-115); HDL Cholesterol 42 mg/dL; Hemoglobin A1c % 11.2 %; LDL Cholesterol Calculated 129 mg/dl; Potassium 4.3 mmol/L (3.3-5.1); Sodium 139 mmol/L (135-145); Total Protein 6.8 g/dL (6.5-8.0); Triglycerides 169 mg/dL
[2022-12-27 13:04] LABS: Erythrocyte Sedimentation Rate 9 MM/HR (0-20)
[2022-12-27 13:05] LABS: Creatinine Urine 165.24 mg/dL; Microalbum/Creatinine Ratio Ur 6.6 ug/mg cr
[2022-12-29 01:34] LABS: LDL Cholesterol Direct 140 mg/dL (<100)
== END 2022-12-27 10:46 | disposition home or self-care (01) ==
LOC: HO.LAB 10:45
PROVIDERS: Absent Provider Internal Medicine; PCP Internal Medicine; Visit Provider Nurse Practitioner Family
DX: E11.65 Type 2 diabetes mellitus with hyperglycemia (principal); M05.9 Rheumatoid arthritis with rheumatoid factor, unspecified; I10 Essential (primary) hypertension
CPT/HCPCS: 36415; 80053; 80061; 82043; 83036; 83721; 85025; 85652; 86140

== ENCOUNTER 2022-12-28 08:39 | Emergency (ER) | payer MEDICARE, MEDICAID, SELFPAY ==
[2022-09-19 10:26] VITALS: BP 100/64; BP 102/48; BP 110/70; BMI 25.5
[2022-12-28 08:46] VITALS: BP 141/99; PULSE 141; RESP 18; TEMP 36.9; O2SAT 96
[2022-12-28 08:48] VITALS: BMI 24.4
--- NOTE | 2022-12-28 08:52 | ECG_ITS ---
Test Reason : tachycardia Blood Pressure : / mmHG Vent. Rate : 131 BPM Atrial Rate : 131 BPM P-R Int : 126 ms QRS Dur : 080 ms QT Int : 282 ms P-R-T Axes : 085 093 059 degrees QTc Int : 416 ms Sinus tachycardia Rightward axis Borderline ECG When compared with ECG of 18-DEC-2022 16:30, No significant change was found Referred By: Millicent Hill Electronically Signed By:MARIA ELENA APODACA MD
--- NOTE | 2022-12-28 08:59 | PC.NURSE ---
Patient c/o posterior right occipital area pain hurts under my skin and hurts to touch . Neuros intact. PERRL. No neuro deficiencies noted. ambulatory with steady gait. Patient HR 138; admits to using albuterol at 0700 today. +wheezes noted throughtout mamadou lung steen. ECG done due to elevated HR. Denies CP. will discuss with MD about need for updraft.
[2022-12-28 09:15] LABS: MANUAL DIFF FLAG NO
[2022-12-28 09:18] LABS: Basophils Percent Auto 0.4 % (0-2); Eosinophils Absolute Auto 0.1 X10*3/uL (0.0-0.4); Eosinophils Percent Auto 0.6 % (0-4); Hematocrit 44.6 % (37.0-47.0); Hemoglobin 14.6 g/dl (12.0-16.0); Imm Gran Abs Auto 0.04 X10*3/uL (0.00-0.03); Imm Gran Pct Auto 0.4 % (0.0-0.4); Lymphocytes Absolute Auto 2.4 X10*3/uL (1.2-4.9); Lymphocytes Percent Auto 24.6 % (20-40); Mean Corpuscular HGB Conc 32.7 g/dl (31.0-35.0); Mean Corpuscular Volume 88.7 fL (80.0-98.0); Mean Platelet Volume 10.7 fL (9.4-12.3); Monocytes Absolute Auto 0.6 X10*3/uL (0.1-1.2); Monocytes Percent Auto 6.5 % (2-11); Neutrophils Absolute Auto 6.6 x10*3/uL (2.0-8.3); Neutrophils Percent Auto 67.5 % (45-73); Platelet Count 316 X10*3/uL (160-400); Red Blood Count 5.03 X10*6/uL (4.20-5.50); Red Cell Distribution Width 13.7 % (11.0-16.0); White Blood Count 9.8 X10*3/uL (4.8-10.8)
--- NOTE | 2022-12-28 09:19 | ED_ITS ---
HPI - General Adult General Chief complaint: Headache Stated complaint: Pain in Back of Head No Injury Time Seen by Provider: 12/28/22 08:58 Source: patient Mode of arrival: ambulatory History of Present Illness HPI narrative: 62-year-old female with known COPD and has an appointment with her television news video editor on 01/02 presents with right-sided scalp discomfort that is atraumatic and not associated with any fevers or chills patient states that pain is worse when she turns her head to the right but denies any numbness tingling or weakness to the right upper extremity. She denies any throat pain, dysphagia, ear pain. Related Data Home Medications Medication Instructions Recorded Confirmed nitroglycerin 0.4 mg sublingual 0.4 mg sublingual Q5M PRN Chest 01/03/22 tablet Pain dulaglutide 1.5 mg/0.5 mL 1.5 mg subcut TH@0900 11/08/22 12/17/22 subcutaneous pen injector (Trulicity) letrozole 2.5 mg tablet 2.5 mg PO BEDTIME 11/08/22 12/17/22 metoprolol tartrate 25 mg tablet 0.5 tab PO BID 11/08/22 12/17/22 pregabalin 150 mg capsule 150 mg PO DAILY 11/08/22 12/17/22 Previous Rx's Medication Instructions Recorded atorvastatin 80 mg tablet 80 mg PO DAILY 90 days #90 tabs 02/06/22 ticagrelor 90 mg tablet (Brilinta) 90 mg PO BID 90 days #180 tabs 02/06/22 lancets 28 gauge (FreeStyle #100 ea 06/07/22 Lancets) pen needle, diabetic 31 gauge x #200 ea 06/07/22/ (Comfort EZ Pen Banquete) ondansetron 4 mg disintegrating 4 mg PO Q8H PRN nausea and 06/29/22 tablet vomiting #14 tabs lubiprostone 8 mcg capsule 8 mcg PO BID 30 days #60 caps 07/18/22 (Amitiza) Novolog FlexPen U-100 Insulin 100 2 - 10 unit subcut TIDAC 30 days 08/28/22 unit/mL (3 mL) subcutaneous #15 mL (insulin aspart U-100) dicyclomine 10 mg capsule 10 mg PO TID PRN for abdominal 08/28/22 pain 30 days #30 caps famotidine 20 mg tablet 20 mg PO BEDTIME 90 days #90 tabs 09/07/22 losartan 25 mg tablet 25 mg PO DAILY #90 tabs 09/07/22 blood sugar diagnostic (FreeStyle #100 ea 09/26/22 Lite Strips) pregabalin 200 mg capsule (Lyrica) 200 mg PO BEDTIME #30 caps 10/01/22 cepixbqzrg-gysbaeixcauiv-cspfgqjv 1 tab PO Q6H PRN pain 30 days #30 10/02/22 50 mg-325 mg-40 mg tablet tabs pantoprazole 40 mg tablet,delayed 40 mg PO BID 90 days #180 tabs 10/18/22 release insulin degludec 100 unit/mL (3 20 unit (0.2 mL) subcut BEDTIME 90 11/07/22 mL) subcutaneous pen (Tresiba days #18 mL FlexTouch U-100 insulin) ipratropium 0.5 mg-albuterol 3 mg 3 ml inhalation RQ4H WHILE AWAKE 11/13/22 (2.5 mg base)/3 mL nebulization #180 mL soln codeine 10 mg-guaifenesin 100 mg/5 5 ml PO Q6H PRN cold symptoms #120 11/22/22 mL oral liquid (Guaifenesin AC) mL aspirin 81 mg tablet,delayed 81 mg PO DAILY 90 days #90 tabs 11/25/22 release prednisone 5 mg tablet 5 mg PO DAILY for asthma #30 tabs 11/26/22 Ventolin HFA 90 mcg/actuation 1 inh inhalation QID PRN shortness 12/14/22 aerosol inhaler (albuterol sulfate) of breath or wheezing 30 days #18 grams lamotrigine 25 mg tablet 25 mg PO BID 90 days #180 tabs 12/18/22 oxycodone 5 mg tablet 5 mg PO Q8H PRN pain #7 tabs 12/18/22 trazodone 100 mg tablet 100 mg PO BEDTIME 90 days #90 tabs 12/18/22 ketorolac 10 mg tablet 10 mg PO Q8H #14 tabs 12/19/22 oxycodone 5 mg tablet 5 mg PO Q6H PRN pain #7 tabs 12/19/22 sulfasalazine 500 mg tablet 0.5 g PO BID #60 tabs 02/07/23 Allergies Allergy/AdvReac Type Severity Reaction Status Date / Time dog dander [DOGS] Allergy Intermediate Respiratory Verified 12/28/22 08:51 distress ibuprofen [Ibuprofen] Allergy Intermediate STOMACH Verified 12/28/22 08:51 UPSET, abdominal pain, nausea and vomiting shellfish derived Allergy Intermediate Hives Verified 12/28/22 08:51 etanercept [From Enbrel] AdvReac Intermediate Facial Verified 12/28/22 08:51 Swelling metformin AdvReac Intermediate diarrhea Verified 12/28/22 08:51 metronidazole [From FLAGYL] AdvReac Intermediate DIARRHEA Verified 12/28/22 08:51 prednisone AdvReac Intermediate hallucinations, Verified 12/28/22 08:51 higher than 20 Review of Systems Review of Systems: Pertinent positives and negatives as stated in HPI [facility] Past Medical History Source: nursing notes reviewed Medical History Allergic rhinitis Anxiety Atherosclerotic cardiovascular disease Bipolar 1 disorder, depressed Bloody diarrhea Breast pain, right Bronchial asthma Colitis COPD (chronic obstructive pulmonary disease) COPD exacerbation Cough CVA (cerebral vascular accident) Depression Diabetes type 2, uncontrolled Dyslipidemia Fibromyalgia HLD (hyperlipidemia) Hospital discharge follow-up HTN (hypertension) Hyperkalemia Hyperlipidemia LDL goal <100 Hyperparathyroidism Hypertension Hypothyroid IDDM (insulin dependent diabetes mellitus) Infiltrating ductal carcinoma of left breast, stage 2 Insomnia Irritable bowel Osteoporosis PAD (peripheral artery disease) Rash Reactive airways dysfunction syndrome Restrictive airway disease Seropositive rheumatoid arthritis T2DM (type 2 diabetes mellitus) Thyroid nodule Vitamin D deficiency Surgical History H/O cardiac catheterization H/O: hysterectomy History of bronchoscopy History of bunionectomy of both great toes History of colonoscopy History of esophagogastroduodenoscopy (EGD) History of lumpectomy of left breast History of pubovaginal sling History of tubal ligation Hx of endoscopy Family History Family History Mother Diabetes HTN (hypertension) Uterus cancer Malignant tumor of head Breast cancer Father Diabetes HTN (hypertension) CVD (cardiovascular disease) Heart problem Maternal Aunt Breast cancer Brother Myocardial infarction S/P CABG x 4 Family/Other FH: mental illness Family/Other Lung cancer Other Mental health disorder Social History Social History Household Members: Other Household Members Other:: sister Housing: Apartment Are you a primary infant caregiver to a significant other at home: No Do you presently have visiting nurse or other home services: Yes Alcohol intake: never Patient Tobacco Use Status: Current everyday Tobacco user Tobacco use type: Cigarette Years Smoked: 50 +/- Smoked in Last 30 Days: Yes e-Cigarette/Vaping Use: Never Used Second Hand Smoke Exposure: No Use of substances other than those prescribed or required for medical reasons: No Advance Directives: Yes Advance Directives on File: Yes Advance Directives Date on File: 12/22/21 service: No Current occupational status: disabled Current occupation: rt handed Cognitive needs: No Hearing needs: No Vision needs: Yes Physical Exam ED Vital Signs: Vital Signs - 24 hr 12/28/22 08:46 Temperature 98.4 F Pulse Rate 141 H Respiratory Rate 18 Blood Pressure 141/99 H Pulse Oximetry 96 Oxygen Delivery Method Room Air BMI result Body Mass Index 24.4 VITAL SIGNS: Reviewed. GENERAL: Well developed, well nourished, in no acute distress. HEAD: Normocephalic/atraumatic, no suboccipital adenopathy noted, scalp is without erythema/induration/obvious folliculitis or lesions but tenderness to palpation over muscle insertion at right occipital EYES: PERRLA, EOMI EARS: Ext canals without abnormality, TMs non-bulging and non-erythematous NOSE: Nares patent bilateral OROPHARYNX: no oral lesions noted, posterior pharynx clear and non-erythematous without noted tonsillar enlargement/erythema/exudates NECK: Supple, no adenopathy LUNGS: Decreased breath sounds with expiratory wheeze and mild tachypnea. SpO2<96> CARDIOVASCULAR: Regular rate and rhythm without noted murmurs ABDOMEN: Soft, non-tender, non-distended with bowel sounds. NEUROLOGIC: Alert and oriented x 4. Strength and sensation to light touch were grossly intact x 4. Medications Administered Discontinued Medications Generic Name Dose Route Start Last Admin Trade Name Freq PRN Reason Stop Dose Admin Prednisone 50 mg 12/28/22 10:30 12/28/22 10:53 Prednisone 10 Mg Tablet PO 12/28/22 10:31 50 mg ONCE ONE Administration Medical Decision Making Medical Decision Making MDM Narrative: 62-year-old female with history and clinical presentation consistent with COPD, not hypoxic, will treat with a short course of steroids. She has good follow-up with her television news video editor. Suspect that the insertion site at the right occipital is secondary to muscle inflammation. I did recommend topical diclofenac to the patient as it is in the hairline. She can also use Tylenol for additional symptom relief. The tachycardia is likely secondary to patient's use of albuterol just prior to presentation. I reviewed all investigations and still my interpretation is that patient has mostly of skeletal pain at the right occipital insertion area of for her musculature. She will also be treated with a short course of steroids. Differential Diagnosis Differential Diagnoses: The differential diagnosis associated with the pres entation includes Please see the discussion above Lab Data MDM Lab Attestation statement: I reviewed the patient's lab results. Please see the discussion above 12/28/22 09:10 12/28/22 09:10 Labs: Lab Results 12/28/22 12/28/22 12/28/22 Range/Units 09:10 09:10 09:10 WBC 9.8 (4.8-10.8) X10*3/uL RBC 5.03 (4.20-5.50) X10*6/uL Hgb 14.6 (12.0-16.0) g/dl Hct 44.6 (37.0-47.0) % MCV 88.7 (80.0-98.0) fL MCH 29.0 (27.0-33.0) pg MCHC 32.7 (31.0-35.0) g/dl RDW 13.7 (11.0-16.0) % Plt Count 316 (160-400) X10*3/uL MPV 10.7 (9.4-12.3) fL Immature Gran % (Auto) 0.4 (0.0-0.4) % Neut % (Auto) 67.5 (45-73) % Lymph % (Auto) 24.6 (20-40) % [place] % (Auto) 6.5 (2-11) % Eos % (Auto) 0.6 (0-4) % Baso % (Auto) 0.4 (0-2) % Lymph # (Auto) 2.4 (1.2-4.9) X10*3/uL [place] # (Auto) 0.6 (0.1-1.2) X10*3/uL Eos # (Auto) 0.1 (0.0-0.4) X10*3/uL Baso # (Auto) 0.0 (0.0-0.2) X10*3/uL Abs Immat Gran (auto) 0.04 H (0.00-0.03) X10*3/uL Absolute Neuts (auto) 6.6 (2.0-8.3) x10*3/uL Absolute Nucleated RBC 0.000 (0.0-0.012) X10*3/uL Nucleated RBC % (auto) 0.0 (0.0-0.2) /100WBC D-Dimer High Sensitivty < 150 NG/ML Sodium 140 (135-145) mmol/L Potassium 4.9 (3.3-5.1) mmol/L Chloride 106 (96-108) mmol/L Carbon Dioxide 23 (22-29) mmol/L Anion Gap 16 (12-20) BUN 10 (9-16) mg/dL Creatinine 0.88 (0.5-1.4) mg/dL Estim Creat Clear Calc 49.0 Estimated GFR > 60 Random Glucose 214 H (60-115) mg/dL Calcium 9.8 (8.4-10.2) mg/dL Total Bilirubin 0.4 (0.0-1.0) mg/dL AST 13 (5-31) U/L ALT 14 (0-31) U/L Alkaline Phosphatase 72 (39-117) U/L Total Protein 6.9 (6.5-8.0) g/dL Albumin 4.1 (3.5-5.0) g/dL Independent Interpretation I performed an independent interpretation of an: EKG Interpretation: Sinus tachycardia, HR-131, no STEMI, rightward axis, CO/QRS/QTC are within normal limits. External Record Review External record reviewed: Outpatient record and Prior outpatient labs Chronic Conditions Patient?s care impacted by: Diabetes and Other COPD Discharge Plan Discharge Clinical Impression: COPD (chronic obstructive pulmonary disease), Musculoskeletal pain Patient Disposition: Home, Self-Care Instructions: COPD (Chronic Obstructive Pulmonary Disease) (ED), Musculoskeletal Pain (ED) Additional Instructions: 1. Resume all home medications as prescribed. 2. Complete the short course of steroids as prescribed. Follow-up with your television news video editor as scheduled on 01/02. 3. Recommend [id number] diclofenac, this is available in every [facility] and should be apply to area of maximal tenderness. 4. Please follow-up with your primary care provider next 1-2 days. Return to the ER for any worsening symptoms. Prescriptions: No Action (DME) pen needle, diabetic [Comfort EZ Pen Banquete] 31 gauge x 5/16 needle See Rx Instructions .ROUTE .MEDSUPPLY Qty: 200 11RF Rx Instructions: Use 1 pen needle 6 times a day (DME) lancets [FreeStyle Lancets] 28 gauge misc See Rx Instructions .Route Qty: 100 3RF Rx Instructions: Use 1 lancet once a day lubiprostone [Amitiza] 8 mcg capsule 8 mcg PO BID 30 Days Qty: 60 3RF insulin aspart U-100 [Novolog FlexPen U-100 Insulin] 100 unit/mL (3 mL) insulin pen 2 - 10 unit subcut TIDAC 30 Days Qty: 15 11RF Protocol: Insulin Correction Scale Less than or equal to 110 ---- Give (units): 0 111 to 150 Give (units): 0 151 to 200 Give (units): 2 201 to 250 Give (units): 4 251 to 300 Give (units): 6 301 to 350 Give (units): 8 Greater than 350 Give (units): 10 Call MD if Blood Glucose > : 350 Rx Instructions: Via sliding scale dicyclomine 10 mg capsule 10 mg PO TID PRN (Reason: for abdominal pain) 30 Days Qty: 30 1RF famotidine 20 mg tablet 20 mg PO BEDTIME 90 Days Qty: 90 1RF losartan 25 mg tablet 25 mg PO DAILY Qty: 90 0RF pregabalin [Lyrica] 200 mg capsule 200 mg PO BEDTIME Qty: 30 3RF xpupcubwjv-vytefnzxncgfg-ulnb 50-325-40 mg tablet 1 tab PO Q6H PRN (Reason: pain) 30 Days Qty: 30 0RF pantoprazole 40 mg tablet,delayed release (DR/EC) 40 mg PO BID 90 Days Qty: 180 0RF aspirin 81 mg tablet,delayed release (DR/EC) 81 mg PO DAILY 90 Days Qty: 90 1RF prednisone 5 mg tablet 5 mg PO DAILY Qty: 30 1RF albuterol sulfate [Ventolin HFA] 90 mcg/actuation HFA aerosol inhaler 1 inh inhalation QID PRN (Reason: shortness of breath or wheezing) 30 Days Qty: 18 2RF lamotrigine 25 mg tablet 25 mg PO BID 90 Days Qty: 180 1RF trazodone 100 mg tablet 100 mg PO BEDTIME 90 Days Qty: 90 0RF sulfasalazine 500 mg tablet 0.5 g PO BID Qty: 60 1RF ondansetron 4 mg tablet,disintegrating 4 mg PO Q8H PRN (Reason: nausea and vomiting) Qty: 14 0RF metoprolol tartrate 25 mg tablet 0.5 tab PO BID pregabalin 150 mg capsule 150 mg PO DAILY Trulicity 1.5 mg/0.5 mL pen injector 1.5 mg subcut TH@0900 letrozole 2.5 mg tablet 2.5 mg PO BEDTIME ipratropium-albuterol 0.5 mg-3 mg(2.5 mg base)/3 mL Solution For Nebulization 3 ml inhalation RQ4H WHILE AWAKE Qty: 180 0RF codeine-guaifenesin [Guaifenesin AC] 10-100 mg/5 mL liquid 5 ml PO Q6H PRN (Reason: cold symptoms) Qty: 120 0RF oxycodone 5 mg tablet 5 mg PO Q8H PRN (Reason: pain) Qty: 7 0RF Rx Instructions: Partial Fill upon patient request. oxycodone 5 mg tablet 5 mg PO Q6H PRN (Reason: pain) Qty: 7 0RF Rx Instructions: Partial Fill upon patient request. ketorolac 10 mg tablet 10 mg PO Q8H Qty: 14 0RF Rx Instructions: Patient received the 1st dose in the ER by IM and tolerated well nitroglycerin 0.4 mg tablet, sublingual 0.4 mg sublingual Q5M PRN (Reason: Chest Pain) atorvastatin 80 mg tablet 80 mg PO DAILY 90 Days Qty: 90 1RF Rx Instructions: patient lost recent RX, please fill this as emergency RX this one time Brilinta 90 mg tablet 90 mg PO BID 90 Days Qty: 180 1RF Rx Instructions: Please fill Rx today, patient lost previous RX, fill as emergency this one time (DME) FreeStyle Lite Strips Strip MISCELLANEOUS DAILY Qty: 100 1RF Rx Instructions: Use 1 test strip three times a day insulin degludec [Tresiba FlexTouch U-100] 100 unit/mL (3 mL) insulin pen 20 unit subcut BEDTIME 90 Days Qty: 18 1RF Referrals: Adela Gipson MD [Primary Care Provider] -
[2022-12-28 09:46] LABS: D Dimer High Sensitivity < 150 NG/ML
[2022-12-28 09:57] LABS: Alanine Aminotransferase 14 U/L (0-31); Albumin Level 4.1 g/dL (3.5-5.0); Alkaline Phosphatase 72 U/L (39-117); Anion Gap 16 (12-20); Aspartate Amino Transferase 13 U/L (5-31); Bilirubin Total 0.4 mg/dL (0.0-1.0); Blood Urea Nitrogen 10 mg/dL (9-16); Calcium 9.8 mg/dL (8.4-10.2); Carbon Dioxide 23 mmol/L (22-29); Chloride 106 mmol/L (96-108); Estimated Glomerular Filt Rate > 60; Glucose Random 214 mg/dL (60-115); Potassium 4.9 mmol/L (3.3-5.1); Sodium 140 mmol/L (135-145); Total Protein 6.9 g/dL (6.5-8.0)
[2022-12-28] MEDS: predniSONE 10 MG TABLET 50 MG PO (10:53)
== END 2022-12-28 11:40 | disposition home or self-care (01) ==
PROVIDERS: Emergency Provider Student in an Organized Health Care Education/Training Program; PCP Internal Medicine
DX: J44.9 Chronic obstructive pulmonary disease, unspecified (principal); M79.10 Myalgia, unspecified site; R00.0 Tachycardia, unspecified; M54.50 Low back pain, unspecified; R51.9 Headache, unspecified; F17.210 Nicotine dependence, cigarettes, uncomplicated; Z71.6 Tobacco abuse counseling; Z79.899 Other long term (current) drug therapy; Z20.822 Contact with and (suspected) exposure to COVID-19
CPT/HCPCS: 0241U; 36415; 74176; 80053; 85025; 85379; 93005; 99283; 99284

== ENCOUNTER 2022-12-28 14:56 | Emergency (ER) | payer MEDICARE, MEDICAID, SELFPAY ==
[2022-09-19 10:26] VITALS: BP 100/64; BP 102/48; BP 110/70; BMI 25.5
--- NOTE | ~2022-12-28 | CT_ITS ---
EXAMINATION: CT ABDOMEN AND PELVIS WITHOUT CONTRAST CLINICAL INFORMATION: Abdominal pain COMPARISON: CTA chest abdomen pelvis 12/18/2022 TECHNIQUE: Multidetector volumetric imaging was performed from the superior aspect of the liver through the pubic symphysis. Sagittal and coronal reformatted images were obtained on the technologist's workstation. This CT examination was performed using dose optimization techniques as appropriate, variously including the following: *Automated exposure control *Adjustment of mA and/or kV according to patient size (this includes techniques or standardized protocols for targeted exams where dose is matched to indication/reason for exam; i.e. extremities or head) *Use of iterative reconstruction technique DLP: 383 mGy-cm FINDINGS: LUNG BASES: Minimal subsegmental atelectasis in the lung bases. Coronary artery vascular calcifications and/or left circumflex coronary artery stent noted. LIVER, GALLBLADDER, AND BILIARY TREE: Mild hepatic hypoattenuation/steatosis. Normal liver size. No liver lesion or biliary ductal dilation. The gallbladder is unremarkable with no evidence of radiopaque gallstones, gallbladder wall thickening, or obvious pericholecystic inflammatory changes. PANCREAS: Unremarkable. SPLEEN: Unremarkable. ADRENAL GLANDS: Unremarkable. KIDNEYS AND URETERS: The kidneys are normal in size, shape, and attenuation. No hydronephrosis, hydroureter, or calculi seen. No perinephric stranding. BLADDER: Unremarkable. GASTROINTESTINAL TRACT: Prominent fluid-filled distention of the stomach. No obstructing mass identified at the gastric outlet. No additional dilated bowel loops. Colonic diverticulosis. No evidence of acute diverticulitis. Normal appendix. No free air or ascites. ABDOMINAL WALL: Small fat-containing umbilical hernia. LYMPH NODES: No lymphadenopathy. VASCULAR: Normal caliber abdominal aorta. Mild to moderate vascular calcifications. PELVIC VISCERA: Status post hysterectomy. No adnexal cyst/mass or free pelvic fluid. OSSEOUS STRUCTURES: No acute fracture or suspicious appearing osseous lesion. CT/CT abdomen pelvis wo IV con IMPRESSION: 1. Prominent fluid-filled distention of the stomach without obstructing gastric mass identified. 2. No additional acute intra-abdominal process identified. 3. Colonic diverticulosis. No evidence of acute diverticulitis. 4. Mild hepatic steatosis.
--- NOTE | 2022-12-28 15:07 | ED_ITS ---
HPI - Abdominal Pain General Chief Complaint: Abdominal Pain Stated Complaint: Abd pain per EMS Time Seen by Provider: 12/28/22 19:19 Source: patient Mode of arrival: ambulatory Limitations: no limitations History of Present Illness HPI narrative: 62yoF presenting to the ER with complaints of abdominal pain that started 1 hour after she was discharged from here. She reports that she was seen here for other complaints and when she got home she started having this abdominal pain. She denies any other symptoms related to this. 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) Pain Consistency: constant Location: diffuse Severity: moderate Quality: cramping Radiation: none Migration to: no migration Exacerbating factors: nothing Relieving factors: nothing Associated symptoms: denies other symptoms Related Data Home Medications Medication Instructions Recorded Confirmed nitroglycerin 0.4 mg sublingual 0.4 mg sublingual Q5M PRN Chest 01/03/22 12/17/22 tablet Pain dulaglutide 1.5 mg/0.5 mL 1.5 mg subcut TH@0900 11/08/22 12/17/22 subcutaneous pen injector (Trulicity) letrozole 2.5 mg tablet 2.5 mg PO BEDTIME 11/08/22 12/17/22 metoprolol tartrate 25 mg tablet 0.5 tab PO BID 11/08/22 12/17/22 pregabalin 150 mg capsule 150 mg PO DAILY 11/08/22 12/17/22 Previous Rx's Medication Instructions Recorded atorvastatin 80 mg tablet 80 mg PO DAILY 90 days #90 tabs 02/06/22 ticagrelor 90 mg tablet (Brilinta) 90 mg PO BID 90 days #180 tabs 02/06/22 lancets 28 gauge (FreeStyle #100 ea 06/07/22 Lancets) pen needle, diabetic 31 gauge x #200 ea 06/07/2216 (Comfort EZ Pen [place]) ondansetron 4 mg disintegrating 4 mg PO Q8H PRN nausea and 06/29/22 tablet vomiting #14 tabs lubiprostone 8 mcg capsule 8 mcg PO BID 30 days #60 caps 07/18/22 (Amitiza) Novolog FlexPen U-100 Insulin 100 2 - 10 unit subcut TIDAC 30 days 08/28/22 unit/mL (3 mL) subcutaneous #15 mL (insulin aspart U-100) dicyclomine 10 mg capsule 10 mg PO TID PRN for abdominal 08/28/22 pain 30 days #30 caps famotidine 20 mg tablet 20 mg PO BEDTIME 90 days #90 tabs 09/07/22 losartan 25 mg tablet 25 mg PO DAILY #90 tabs 09/07/22 blood sugar diagnostic (FreeStyle #100 ea 09/26/22 Lite Strips) pregabalin 200 mg capsule (Lyrica) 200 mg PO BEDTIME #30 caps 10/01/22 plicmzkrbn-voapzivfkpqyc-egzuhhcz 1 tab PO Q6H PRN pain 30 days #30 10/02/22 50 mg-325 mg-40 mg tablet tabs pantoprazole 40 mg tablet,delayed 40 mg PO BID 90 days #180 tabs 10/18/22 release insulin degludec 100 unit/mL (3 20 unit (0.2 mL) subcut BEDTIME 90 11/07/22 mL) subcutaneous pen (Tresiba days #18 mL FlexTouch U-100 insulin) ipratropium 0.5 mg-albuterol 3 mg 3 ml inhalation RQ4H WHILE AWAKE 11/13/22 (2.5 mg base)/3 mL nebulization #180 mL soln codeine 10 mg-guaifenesin 100 mg/5 5 ml PO Q6H PRN cold symptoms #120 11/22/22 mL oral liquid (Guaifenesin AC) mL aspirin 81 mg tablet,delayed 81 mg PO DAILY 90 days #90 tabs 11/25/22 release prednisone 5 mg tablet 5 mg PO DAILY for asthma #30 tabs 11/26/22 Ventolin HFA 90 mcg/actuation 1 inh inhalation QID PRN shortness 12/14/22 aerosol inhaler (albuterol sulfate) of breath or wheezing 30 days #18 grams lamotrigine 25 mg tablet 25 mg PO BID 90 days #180 tabs 12/18/22 oxycodone 5 mg tablet 5 mg PO Q8H PRN pain #7 tabs 12/18/22 trazodone 100 mg tablet 100 mg PO BEDTIME 90 days #90 tabs 12/18/22 ketorolac 10 mg tablet 10 mg PO Q8H #14 tabs 12/19/22 oxycodone 5 mg tablet 5 mg PO Q6H PRN pain #7 tabs 12/19/22 sulfasalazine 500 mg tablet 0.5 g PO BID #60 tabs 12/25/22 ondansetron HCl 4 mg tablet 4 mg PO Q8H #14 tabs 12/28/22 Allergies Allergy/AdvReac Type Severity Reaction Status Date / Time dog dander [DOGS] Allergy Intermediate Respiratory Verified 12/28/22 08:51 distress ibuprofen [Ibuprofen] Allergy Intermediate STOMACH Verified 12/28/22 08:51 UPSET, abdominal pain, nausea and vomiting shellfish derived Allergy Intermediate Hives Verified 12/28/22 08:51 etanercept [From Enbrel] AdvReac Intermediate Facial Verified 12/28/22 08:51 Swelling metformin AdvReac Intermediate diarrhea Verified 12/28/22 08:51 metronidazole [From FLAGYL] AdvReac Intermediate DIARRHEA Verified 12/28/22 08:51 prednisone AdvReac Intermediate hallucinations, Verified 12/28/22 08:51 higher than 20 Review of Systems Review of Systems Constitutional : No Weight loss, No Fever, No Chills, No Night Sweats, No Fatigue, No Malaise ENT/Mouth : No Hearing loss, No Ear Pain, No Nasal Congestion, No Sinus Pain, No Hoarseness, No sore throat, No Rhinorrhea, No Swallowing Difficulty Eyes: No Eye Pain, No Swelling, No Redness, No Foreign Body, No Discharge, No Vi hedy Changes Cardiovascular : No Chest Pain, No SOB, No Dyspnea on Exertion, No Orthopnea, No Edema, No Palpitations Respiratory : No Cough, No Sputum, No Wheezing, No Smoke Exposure, No Dyspnea Gastrointestinal : + abdominal pain, No Nausea, No Vomiting, No Diarrhea, No Constipation, No Hematochezia, No Melena Genitourinary : no irregular bleeding, No Dysuria, No Urinary Frequency, No Hematuria, No Urinary Incontinence, No Urgency, No Flank Pain, No Urinary Flow Changes, No Hesitancy Musculoskeletal : No joint pain, No Myalgias, No Joint Swelling Skin : No Skin Lesions, No rash Neuro : No Weakness, No Numbness, No Paresthesias, No Loss of Consciousness, No Dizziness, No Headache Psych : No Anxiety/Panic, No Depression, No SI/HI/AH/VH, No Social Issues, Heme/Lymph: No Bruising, No Bleeding,No Lymphadenopathy Endocrine : No Polyuria, No Polydipsia, No Temperature Intolerance Yes all other systems are reviewed and are negative [facility] Past Medical History Attestation statement: The following information was validated with the patient. Source: old records reviewed and nursing notes reviewed Medical History Allergic rhinitis Anxiety Atherosclerotic cardiovascular disease Bipolar 1 disorder, depressed Bloody diarrhea Breast pain, right Bronchial asthma Colitis COPD (chronic obstructive pulmonary disease) COPD exacerbation Cough CVA (cerebral vascular accident) Depression Diabetes type 2, uncontrolled Dyslipidemia Fibromyalgia HLD (hyperlipidemia) Hospital discharge follow-up HTN (hypertension) Hyperkalemia Hyperlipidemia LDL goal <100 Hyperparathyroidism Hypertension Hypothyroid IDDM (insulin dependent diabetes mellitus) Infiltrating ductal carcinoma of left breast, stage 2 Insomnia Irritable bowel Osteoporosis PAD (peripheral artery disease) Rash Reactive airways dysfunction syndrome Restrictive airway disease Seropositive rheumatoid arthritis T2DM (type 2 diabetes mellitus) Thyroid nodule Vitamin D deficiency Surgical History H/O cardiac catheterization H/O: hysterectomy History of bronchoscopy History of bunionectomy of both great toes History of colonoscopy History of esophagogastroduodenoscopy (EGD) History of lumpectomy of left breast History of pubovaginal sling History of tubal ligation Hx of endoscopy Family History Family History Mother Diabetes HTN (hypertension) Uterus cancer Malignant tumor of head Breast cancer Father Diabetes HTN (hypertension) CVD (cardiovascular disease) Heart problem Maternal Aunt Breast cancer Brother Myocardial infarction S/P CABG x 4 Family/Other FH: mental illness Family/Other Lung cancer Other Mental health disorder Social History Social History Household Members: Other Household Members Other:: sister Housing: Apartment Are you a primary care tech to a significant other at home: No Do you presently have visiting nurse or other home services: Yes Alcohol intake: never Patient Tobacco Use Status: Current everyday Tobacco user Tobacco use type: Cigarette Years Smoked: 50 +/- e-Cigarette/Vaping Use: Never Used Second Hand Smoke Exposure: No Advance Directives: Yes Advance Directives on File: Yes Advance Directives Date on File: 12/22/21 service: No Current occupational status: disabled Current occupation: rt handed Cognitive needs: No Hearing needs: No Vision needs: Yes Physical Exam ED Vital Signs: Vital Signs - 24 hr 12/28/22 15:08 12/28/22 19:26 Temperature 98.2 F 97.8 F Pulse Rate 141 H 124 H Respiratory Rate 20 22 H Blood Pressure 145/110 H 143/88 H Pulse Oximetry 98 96 Oxygen Delivery Method Room Air Room Air BMI result Body Mass Index 23.6 Vital signs have been reviewed and blood pressure 145/110. Pulse 141. Respirations 20. Temperature 98.2 degrees. Oxygen 90% on room air. Appearance: Alert. Oriented X3. No acute distress. Head: Normal external exam. Normocephalic. Eyes: PERRLA. EOMI. Conjunctiva and sclera normal. Eyelids normal. ENT: Pharynx normal. Uvula midline. Moist mucous membranes. No trismus noted. No drooling noted. No muffled voice noted. Neck: Normal inspection. Neck supple. FROM. No adenopathy. No meningeal signs. CVS: Normal heart rate and rhythm. Heart sound normal. No murmurs noted. Pulses normal throughout. Respiratory: No respiratory distress. Painless inspiration. Breath sounds normal. No wheezes/rales/rhonchi noted. Chest nontender. No accessory muscle usage noted or decreased air movement noted. Abdomen: Soft mild tenderness diffusely. No point tenderness is noted. Nondistended. No guarding. No rigidity. Bowel sounds normal in all 4 quadrants. No distention noted. No organomegaly noted. No visible injury noted. No rebound tenderness. Negative Rovsing sign. Negative obturator's sign. Negative psoas sign. Negative Lopez sign. Back: No CVA tenderness. Full range of motion noted. Skin: Skin warm and dry. Normal skin color. Normal skin turgor. No rashes/lesions/lacerations noted. Extremities: Extremities exhibit normal range of motion. Extremities nontender. Neuro: Oriented X 3. No motor deficit. No sensory deficit. Reflexes normal. Normal steady gait. CN's II-XII intact bilaterally? Course Course Course Narrative: YULI- 15:10PM - 62yoF presenting to the ER with complaints of abdominal pain that started 1 hour after she was discharged from here. She reports that she was seen here for other complaints and when she got home she started having this abdominal pain. She denies any other symptoms related to this. Plan: Patient already had labs earlier today. Therefore will add a drug urine screen, COVID/RSV/flu swab, UA and a dry CT patient will be sent to the waiting room to be evaluated in the ED. Reevaluation(s) Reevaluation #1: Patient had labs earlier today on all her labs are within normal limits therefore I did not repeat labs. Patient negative for COVID/RSV/flu. CT scan abdomen pelvis revealed chronic changes no acute processes noted. Therefore at this time will DC home with instructions return if any new or worsening symptoms follow up with primary care provider. Patient understands agrees with this plan. Time: 19:24 Medical Decision Making Lab Data MDM Lab Attestation statement: I reviewed the patient's lab results. Labs: Lab Results 12/28/22 Range/Units 15:17 Influenza Type A (PCR) NEGATIVE (Negative) Influenza Type B (PCR) NEGATIVE (Negative) RSV RNA Qual (PCR) NEGATIVE (Negative) SARS-CoV-2 RNA (RT-PCR) NEGATIVE (Negative) Independent Interpretation I performed an independent interpretation of an: EKG (EKG sinus tachycardia with ventricular rate 124 with left atrial enlargement similar compared to prior EKG earlier today. No acute ischemic change are noted.) and CT Scan (I explained to the patient that she has chronic changes on her CT scan no acute processes noted. I reviewed the scans myself.) Radiology Impression Discussion of test interpretation with radiology: I have reviewed the radiologist's reading. Radiologist Impression: FINDINGS: LUNG BASES: Minimal subsegmental atelectasis in the lung bases. Coronary artery vascular calcifications and/or left circumflex coronary artery stent noted.? LIVER, GALLBLADDER, AND BILIARY TREE: Mild hepatic hypoattenuation/steatosis. Normal liver size. No liver lesion or biliary ductal dilation. The gallbladder is unremarkable with no evidence of radiopaque gallstones, gallbladder wall thickening, or obvious pericholecystic inflammatory changes.? PANCREAS: Unremarkable.? SPLEEN: Unremarkable.? ADRENAL GLANDS: Unremarkable.? KIDNEYS AND URETERS: The kidneys are normal in size, shape, and attenuation. No hydronephrosis, hydroureter, or calculi seen. No perinephric stranding. ? BLADDER: Unremarkable.? GASTROINTESTINAL TRACT: Prominent fluid-filled distention of the stomach. No obstructing mass identified at the gastric outlet. No additional dilated bowel loops. Colonic diverticulosis. No evidence of acute diverticulitis. Normal appendix. No free air or ascites. ABDOMINAL WALL: Small fat-containing umbilical hernia.? LYMPH NODES: No lymphadenopathy. VASCULAR: Normal caliber abdominal aorta. Mild to moderate vascular calcifications. PELVIC VISCERA: Status post hysterectomy. No adnexal cyst/mass or free pelvic fluid.? OSSEOUS STRUCTURES: No acute fracture or suspicious appearing osseous lesion.? CT/CT abdomen pelvis wo IV con IMPRESSION: 1.? Prominent fluid-filled distention of the stomach without obstructing gastric mass identified. 2.? No additional acute intra-abdominal process identified. 3.? Colonic diverticulosis. No evidence of acute diverticulitis. 4.? Mild hepatic steatosis. ? ? External Record Review External record reviewed: Inpatient record, Office record, Outpatient record, Prior outpatient labs, Prior outpatient radiology, Primary care record and Outside ED record Discharge Plan Discharge Clinical Impression: Abdominal pain Patient Disposition: Home, Self-Care Instructions: Abdominal Pain (ED) Prescriptions: New ondansetron HCl 4 mg tablet 4 mg PO Q8H Qty: 14 0RF No Action (DME) pen needle, diabetic [Comfort EZ Pen [place]] 31 gauge x 5/16 needle See Rx Instructions .ROUTE .MEDSUPPLY Qty: 200 11RF Rx Instructions: Use 1 pen needle 6 times a day (DME) lancets [FreeStyle Lancets] 28 gauge misc See Rx Instructions .Route Qty: 100 3RF Rx Instructions: Use 1 lancet once a day lubiprostone [Amitiza] 8 mcg capsule 8 mcg PO BID 30 Days Qty: 60 3RF insulin aspart U-100 [Novolog FlexPen U-100 Insulin] 100 unit/mL (3 mL) insulin pen 2 - 10 unit subcut TIDAC 30 Days Qty: 15 11RF Protocol: Insulin Correction Scale Less than or equal to 110 ---- Give (units): 0 111 to 150 Give (units): 0 151 to 200 Give (units): 2 201 to 250 Give (units): 4 251 to 300 Give (units): 6 301 to 350 Give (units): 8 Greater than 350 Give (units): 10 Call MD if Blood Glucose > : 350 Rx Instructions: Via sliding scale dicyclomine 10 mg capsule 10 mg PO TID PRN (Reason: for abdominal pain) 30 Days Qty: 30 1RF famotidine 20 mg tablet 20 mg PO BEDTIME 90 Days Qty: 90 1RF losartan 25 mg tablet 25 mg PO DAILY Qty: 90 0RF pregabalin [Lyrica] 200 mg capsule 200 mg PO BEDTIME Qty: 30 3RF lkntnccevz-afapwrdtxkdmi-mbbc 50-325-40 mg tablet 1 tab PO Q6H PRN (Reason: pain) 30 Days Qty: 30 0RF pantoprazole 40 mg tablet,delayed release (DR/EC) 40 mg PO BID 90 Days Qty: 180 0RF aspirin 81 mg tablet,delayed release (DR/EC) 81 mg PO DAILY 90 Days Qty: 90 1RF prednisone 5 mg tablet 5 mg PO DAILY Qty: 30 1RF albuterol sulfate [Ventolin HFA] 90 mcg/actuation HFA aerosol inhaler 1 inh inhalation QID PRN (Reason: shortness of breath or wheezing) 30 Days Qty: 18 2RF lamotrigine 25 mg tablet 25 mg PO BID 90 Days Qty: 180 1RF trazodone 100 mg tablet 100 mg PO BEDTIME 90 Days Qty: 90 0RF sulfasalazine 500 mg tablet 0.5 g PO BID Qty: 60 1RF ondansetron 4 mg tablet,disintegrating 4 mg PO Q8H PRN (Reason: nausea and vomiting) Qty: 14 0RF metoprolol tartrate 25 mg tablet 0.5 tab PO BID pregabalin 150 mg capsule 150 mg PO DAILY Trulicity 1.5 mg/0.5 mL pen injector 1.5 mg subcut TH@0900 letrozole 2.5 mg tablet 2.5 mg PO BEDTIME ipratropium-albuterol 0.5 mg-3 mg(2.5 mg base)/3 mL Solution For Nebulization 3 ml inhalation RQ4H WHILE AWAKE Qty: 180 0RF codeine-guaifenesin [Guaifenesin AC] 10-100 mg/5 mL liquid 5 ml PO Q6H PRN (Reason: cold symptoms) Qty: 120 0RF oxycodone 5 mg tablet 5 mg PO Q8H PRN (Reason: pain) Qty: 7 0RF Rx Instructions: Partial Fill upon patient request. oxycodone 5 mg tablet 5 mg PO Q6H PRN (Reason: pain) Qty: 7 0RF Rx Instructions: Partial Fill upon patient request. ketorolac 10 mg tablet 10 mg PO Q8H Qty: 14 0RF Rx Instructions: Patient received the 1st dose in the ER by IM and tolerated well nitroglycerin 0.4 mg tablet, sublingual 0.4 mg sublingual Q5M PRN (Reason: Chest Pain) atorvastatin 80 mg tablet 80 mg PO DAILY 90 Days Qty: 90 1RF Rx Instructions: patient lost recent RX, please fill this as emergency RX this one time Brilinta 90 mg tablet 90 mg PO BID 90 Days Qty: 180 1RF Rx Instructions: Please fill Rx today, patient lost previous RX, fill as emergency this one time (DME) FreeStyle Lite Strips Strip MISCELLANEOUS DAILY Qty: 100 1RF Rx Instructions: Use 1 test strip three times a day insulin degludec [Tresiba FlexTouch U-100] 100 unit/mL (3 mL) insulin pen 20 unit subcut BEDTIME 90 Days Qty: 18 1RF Referrals: Adela Gipson MD [Primary Care Provider] - 2 days
[2022-12-28 15:08] VITALS: BP 144/90; BP 145/110; PULSE 128; PULSE 141; RESP 20; TEMP 36.8; O2SAT 97; O2SAT 98; BMI 23.6
[2022-12-28 16:00] LABS: Influenza A PCR NEGATIVE (Negative); Influenza B PCR NEGATIVE (Negative); Resp Syncy Virus RNA Qual PCR NEGATIVE (Negative); SARS COV2 PCR INHOUSE NEGATIVE (Negative)
[2022-12-28 19:26] VITALS: BP 143/88; PULSE 124; RESP 22; TEMP 36.6; O2SAT 96
--- NOTE | 2022-12-28 19:26 | ECG_ITS ---
Test Reason : HIGH HEART RATE Blood Pressure : / mmHG Vent. Rate : 124 BPM Atrial Rate : 124 BPM P-R Int : 126 ms QRS Dur : 078 ms QT Int : 310 ms P-R-T Axes : 080 092 068 degrees QTc Int : 445 ms Sinus tachycardia Possible Left atrial enlargement Rightward axis Borderline ECG When compared with ECG of 28-DEC-2022 08:58, No significant change was found Referred By: Porsha Araujo Electronically Signed By:MARIA ELENA APODACA MD
== END 2022-12-28 20:21 | disposition home or self-care (01) ==
PROVIDERS: Physician Assistant Medical; Emergency Provider Emergency Medicine; PCP Internal Medicine
DX: R10.13 Epigastric pain (principal)
CPT/HCPCS: 0241U; 74176; 93005; 99283

== ENCOUNTER → 2023-01-02 09:07 | Outpatient (BNVA) | payer MEDICARE, MEDICAID, SELFPAY ==
[2022-09-19 10:26] VITALS: BP 100/64; BP 102/48; BP 110/70; BMI 25.5
== END ==
PROVIDERS: PCP Internal Medicine; Visit Provider Nurse Practitioner Family
DX: M05.9 Rheumatoid arthritis with rheumatoid factor, unspecified (principal); M79.7 Fibromyalgia
CPT/HCPCS: 99212

== ENCOUNTER → 2023-01-03 09:25 | Outpatient (BNVA) | payer MEDICARE, MEDICAID, SELFPAY ==
[2022-09-19 10:26] VITALS: BP 100/64; BP 102/48; BP 110/70; BMI 25.5
== END ==
PROVIDERS: PCP Internal Medicine; Visit Provider Internal Medicine
DX: J44.9 Chronic obstructive pulmonary disease, unspecified (principal); J45.909 Unspecified asthma, uncomplicated; J30.9 Allergic rhinitis, unspecified; Z79.52 Long term (current) use of systemic steroids; Z79.899 Other long term (current) drug therapy
CPT/HCPCS: 99212

== ENCOUNTER → 2023-01-10 09:23 | Outpatient (BNVA) | payer MEDICARE, MEDICAID, SELFPAY ==
[2022-09-19 10:26] VITALS: BP 100/64; BP 102/48; BP 110/70; BMI 25.5
== END ==
PROVIDERS: PCP Internal Medicine; Visit Provider Internal Medicine Gastroenterology
DX: K21.9 Gastro-esophageal reflux disease without esophagitis (principal); K57.30 Diverticulosis of large intestine without perforation or abscess without bleeding; K59.09 Other constipation; R14.0 Abdominal distension (gaseous); B15.9 Hepatitis A without hepatic coma; R13.10 Dysphagia, unspecified; R63.5 Abnormal weight gain; Z86.19 Personal history of other infectious and parasitic diseases; Z87.19 Personal history of other diseases of the digestive system; Z79.52 Long term (current) use of systemic steroids
CPT/HCPCS: 99212

== ENCOUNTER 2023-01-23 09:43 | Inpatient (IN) | payer MEDICARE, MEDICAID, SELFPAY ==
[2022-09-19 10:26] VITALS: BP 100/64; BP 102/48; BP 110/70; BMI 25.5
[2023-01-23] VITALS (10 sets, daily range): BP systolic 111–150; BP diastolic 66–97; PULSE 68–139; RESP 16–20; TEMP 35.9–37.1; O2SAT 96–99; BMI 23.6; BMI 24.1
--- NOTE | ~2023-01-23 | XR_ITS ---
EXAMINATION: XR CHEST CLINICAL INFORMATION: Asthma, expiratory wheezing. COMPARISON: December 18, 2022 TECHNIQUE: PA view of the chest was obtained. FINDINGS: Lungs are mildly hyperexpanded. No acute parenchymal disease, pneumothorax, or pleural effusion is identified. Heart normal size. No evidence of pulmonary edema. XR/XR chest 1V IMPRESSION: No acute disease.
--- NOTE | ~2023-01-23 | CT_ITS ---
EXAMINATION: CT ABDOMEN AND PELVIS WITH CONTRAST CLINICAL INFORMATION: Bloody stools with abdominal pain nausea vomiting diarrhea COMPARISON: 12/28/2022 TECHNIQUE: Multidetector volumetric images were obtained from the superior aspect of the liver through the pubic symphysis following administration 85 mL of Omnipaque 350 intravenous contrast. Sagittal and coronal reformatted images were obtained on the technologist's workstation. Oral contrast: No This CT examination was performed using dose optimization techniques as appropriate, variously including the following: *Automated exposure control *Adjustment of mA and/or kV according to patient size (this includes techniques or standardized protocols for targeted exams where dose is matched to indication/reason for exam; i.e. extremities or head) *Use of iterative reconstruction technique DLP: 384 mGy-cm FINDINGS: LUNG BASES: The visualized lung bases are unremarkable. LIVER, GALLBLADDER, AND BILIARY TREE: The liver is normal in size, shape, and attenuation. No focal hepatic lesion or biliary ductal dilatation is present. The gallbladder is unremarkable with no evidence of radiopaque gallstones, gallbladder wall thickening, or obvious pericholecystic inflammatory changes. PANCREAS: Unremarkable. SPLEEN: Unremarkable. ADRENAL GLANDS: Unremarkable. KIDNEYS AND URETERS: The kidneys are normal in size, shape, and attenuation. No hydronephrosis, hydroureter, or calculi seen. No perinephric stranding. BLADDER: Unremarkable. GASTROINTESTINAL TRACT: Findings suggest edematous change in the colon, part of the transverse and the descending colon and sigmoid. The bowel pattern is nonobstructing. The appendix is within normal limits. ABDOMINAL WALL: No significant hernia is appreciated. LYMPH NODES: Some prominent nodes adjacent the left adrenal gland similar to previous. VASCULAR: Atherosclerotic changes. No aneurysmal change. PELVIC VISCERA: Unremarkable. OSSEOUS STRUCTURES: Unremarkable. CT/CT abdomen pelvis w IV con IMPRESSION: This exam is abnormal. There is felt to be edematous change most noted from the mid transverse colon through the rectosigmoid. Colitis is favored infectious versus noninfectious etiology. Other findings are as noted above. Fleischner guidelines were followed.
--- NOTE | 2023-01-23 09:54 | ECG_ITS ---
Test Reason : TACHYCARDIA, RECTAL BLEEDING Blood Pressure : / mmHG Vent. Rate : 120 BPM Atrial Rate : 120 BPM P-R Int : 134 ms QRS Dur : 076 ms QT Int : 314 ms P-R-T Axes : 080 085 067 degrees QTc Int : 443 ms Artifact in tracing Sinus tachycardia Otherwise normal ECG When compared with ECG of 28-DEC-2022 19:32, No significant changes seen Referred By: Generic ED Physician Electronically Signed By:MICHELL MONTES
[2023-01-23 10:19] LABS: Hematocrit 45.4 % (37.0-47.0); Hemoglobin 14.9 g/dl (12.0-16.0); Mean Corpuscular HGB Conc 32.8 g/dl (31.0-35.0); Mean Corpuscular Hemoglobin 28.8 pg (27.0-33.0); Mean Corpuscular Volume 87.6 fL (80.0-98.0); Mean Platelet Volume 10.8 fL (9.4-12.3); Platelet Count 371 X10*3/uL (160-400); Red Blood Count 5.18 X10*6/uL (4.20-5.50); Red Cell Distribution Width 13.5 % (11.0-16.0)
--- NOTE | 2023-01-23 10:19 | ED_ITS ---
HPI - Abdominal Pain General Chief Complaint: Abdominal Pain Stated Complaint: Rectal bleed/Vomiting Time Seen by Provider: 01/23/23 10:04 Source: patient Mode of arrival: ambulatory History of Present Illness HPI narrative: 62yo F with HTN, HLD, CAD s/p PCI, DM2, PAD, ashtma, COPD, steroid-dependent rheumatoid arthritis, fibromyalgia, bipolar depression, on ASA, and noncompliant on Brilinta x3 weeks who presents to the ED complaining of diffuse abdominal pain/cramping, nausea, vomiting, and bloody diarrhea since 04:00. Admits to [facility] symptoms in the past with colitis/diverticulitis. Also reports acute on chronic cough, SOB, and wheezing. Reports associated chest tightness. Denies known fever, chills, dysuria/hematuria, flank pain, lightheadedness/dizziness MD elicited complaint: abdominal pain Related Data Home Medications Medication Instructions Recorded Confirmed nitroglycerin 0.4 mg sublingual 0.4 mg sublingual Q5M PRN Chest 01/03/22 01/23/23 tablet Pain dulaglutide 1.5 mg/0.5 mL 1.5 mg subcut WE@0900 11/08/22 01/23/23 subcutaneous pen injector (Trulicity) metoprolol tartrate 25 mg tablet 0.5 tab PO BID 11/08/22 01/23/23 Previous Rx's Medication Instructions Recorded atorvastatin 80 mg tablet 80 mg PO DAILY 90 days #90 tabs 02/06/22 ticagrelor 90 mg tablet (Brilinta) 90 mg PO BID 90 days #180 tabs 02/06/22 lancets 28 gauge (FreeStyle #100 ea 06/07/22 Lancets) pen needle, diabetic 31 gauge x #200 ea 06/07/22 5/16 (Comfort EZ Pen [place]) ondansetron 4 mg disintegrating 4 mg PO Q8H PRN nausea and 06/29/22 tablet vomiting #14 tabs Novolog FlexPen U-100 Insulin 100 2 - 10 unit subcut TIDAC 30 days 08/28/22 unit/mL (3 mL) subcutaneous #15 mL (insulin aspart U-100) losartan 25 mg tablet 25 mg PO DAILY #90 tabs 09/07/22 pantoprazole 40 mg tablet,delayed 40 mg PO BID 90 days #180 tabs 10/18/22 release insulin degludec 100 unit/mL (3 20 unit (0.2 mL) subcut BEDTIME 90 11/07/22 mL) subcutaneous pen (Tresiba days #18 mL FlexTouch U-100 insulin) ipratropium 0.5 mg-albuterol 3 mg 3 ml inhalation RQ4H WHILE AWAKE 11/13/22 (2.5 mg base)/3 mL nebulization #180 mL soln aspirin 81 mg tablet,delayed 81 mg PO DAILY 90 days #90 tabs 11/25/22 release Ventolin HFA 90 mcg/actuation 1 inh inhalation QID PRN shortness 12/14/22 aerosol inhaler (albuterol sulfate) of breath or wheezing 30 days #18 grams lamotrigine 25 mg tablet 25 mg PO BID 90 days #180 tabs 12/18/22 trazodone 100 mg tablet 100 mg PO BEDTIME 90 days #90 tabs 12/18/22 sulfasalazine 500 mg tablet 0.5 g PO BID #60 tabs 12/25/22 pregabalin 200 mg capsule (Lyrica) 200 mg PO BID #60 caps 01/02/23 budesonide 0.5 mg/2 mL suspension 0.25 mg inhalation BID ASTHMA/COPD 01/04/23 for nebulization 30 days #60 mL famotidine 20 mg tablet 20 mg PO BEDTIME 90 days #90 tabs 01/10/23 lubiprostone 8 mcg capsule 8 mcg PO BID 90 days #180 caps 01/10/23 (Amitiza) blood sugar diagnostic (FreeStyle #100 ea 01/20/23 Lite Strips) prednisone 5 mg tablet 5 mg PO DAILY for asthma #30 tabs 01/22/23 Allergies Allergy/AdvReac Type Severity Reaction Status Date / Time dog dander [DOGS] Allergy Intermediate Respiratory Verified 01/10/23 09:40 distress ibuprofen [Ibuprofen] Allergy Intermediate STOMACH Verified 01/10/23 09:40 UPSET, abdominal pain, nausea and vomiting shellfish derived Allergy Intermediate Hives Verified 01/10/23 09:40 etanercept [From Enbrel] AdvReac Intermediate Facial Verified 01/10/23 09:40 Swelling metformin AdvReac Intermediate diarrhea Verified 01/10/23 09:40 metronidazole [From FLAGYL] AdvReac Intermediate DIARRHEA Verified 01/10/23 09:40 prednisone AdvReac Intermediate hallucinations, Verified 01/10/23 09:40 higher than 20 methylprednisolone AdvReac Rash Verified 01/23/23 12:41 Review of Systems Review of Systems Constitutional: No Fever, No Chills, No Fatigue, No Malaise ENT/Mouth: No Ear Pain, No sore throat, No Rhinorrhea, No Swallowing Difficulty Eyes: No Eye Pain, No Swelling, No Redness, No Vision Changes Cardiovascular: +chest tightness, + SOB, No Edema, No Palpitations Respiratory: + Cough, No Sputum, No Wheezing, No Smoke Exposure, No Dyspnea Gastrointestinal: + Nausea, + Vomiting, +Diarrhea, No Constipation, No Abdominal pain, + Hematochezia, No Melena Genitourinary: No irregular bleeding, No Dysuria, No Hematuria, No Flank Pain Musculoskeletal: No joint pain, No Myalgias, No Joint Swelling Skin: No Skin Lesions, No rash Neuro: No Weakness, No Dizziness, No Headache Yes all other systems are reviewed and are negative Constitutional: Reports as per [facility] Past Medical History Attestation statement: The following information was validated with the patient. Medical History Allergic rhinitis Anxiety Atherosclerotic cardiovascular disease Bipolar 1 disorder, depressed Bloody diarrhea Breast pain, right Bronchial asthma Colitis COPD (chronic obstructive pulmonary disease) COPD exacerbation Cough CVA (cerebral vascular accident) Depression Diabetes type 2, uncontrolled Dyslipidemia Fibromyalgia HLD (hyperlipidemia) Hospital discharge follow-up HTN (hypertension) Hyperkalemia Hyperlipidemia LDL goal <100 Hyperparathyroidism Hypertension Hypothyroid IDDM (insulin dependent diabetes mellitus) Infiltrating ductal carcinoma of left breast, stage 2 Insomnia Irritable bowel Osteoporosis PAD (peripheral artery disease) Rash Reactive airways dysfunction syndrome Restrictive airway disease Seropositive rheumatoid arthritis T2DM (type 2 diabetes mellitus) Thyroid nodule Vitamin D deficiency Surgical History H/O cardiac catheterization H/O: hysterectomy History of bronchoscopy History of bunionectomy of both great toes History of colonoscopy History of esophagogastroduodenoscopy (EGD) History of lumpectomy of left breast History of pubovaginal sling History of tubal ligation Hx of endoscopy Family History Family History Mother Diabetes HTN (hypertension) Uterus cancer Malignant tumor of head Breast cancer Father Diabetes HTN (hypertension) CVD (cardiovascular disease) Heart problem Maternal Aunt Breast cancer Brother Myocardial infarction S/P CABG x 4 Family/Other FH: mental illness Family/Other Lung cancer Other Mental health disorder Social History Social History Household Members: Family Household Members Other:: sister Housing: House Are you a primary transitional care liaison to a significant other at home: No Do you presently have visiting nurse or other home services: Yes (sister is kettle chipper) Alcohol intake: never Patient Tobacco Use Status: Current everyday Tobacco user Tobacco use type: Cigarette Cigarettes Per Day: 3 Years Smoked: 50 +/- e-Cigarette/Vaping Use: Never Used Second Hand Smoke Exposure: No Advance Directives Date on File: 12/22/21 service: No Current occupational status: disabled Current occupation: rt handed Cognitive needs: No Hearing needs: No Vision needs: Yes Physical Exam ED Vital Signs: Vital Signs - 24 hr 01/23/23 09:49 01/23/23 11:18 01/23/23 11:22 Temperature 96.7 F L Pulse Rate 139 H 111 H 98 Respiratory Rate 17 18 20 Blood Pressure 145/97 H 147/96 H Pulse Oximetry 96 96 Oxygen Delivery Method Room Air Room Air 01/23/23 11:56 01/23/23 13:25 01/23/23 13:39 Temperature 98.8 F Pulse Rate 102 H 80 94 Respiratory Rate 18 16 16 Blood Pressure 150/92 H 128/81 Pulse Oximetry 99 99 Oxygen Delivery Method Room Air BMI result Body Mass Index 23.6 Const Other: Appears uncomfortable General: cooperative and no acute distress Orientation/consciousness: patient oriented x3 Limitations: no limitations HENMT Head: Yes normal to inspection and Yes atraumatic Ears: hearing grossly normal bilaterally General nose exam: Normal external nose present Face and sinus: Yes normal facial exam Eyes General: appearance normal, both eyes and all related structures EOM: EOMs intact bilaterally Neck Neck: Yes normal visual inspection and Yes no meningeal signs Resp Effort & Inspection: normal respiratory effort, no respiratory distress and tachypneic Auscultation: wheezes expiratory wheezes and throughout and diminished lung sounds diffuse Cardio Rate: regular rate and tachycardic Heart sounds: S1 normal heart sound present and S2 normal heart sound present GI Inspection: Yes normal to inspection Palpation (GI): Soft to palpation, Tenderness to palpation present (GI) (Diffusely) with no rebound tenderness, no guarding and not rigid Rectal Exam - Female: Abnormal stool present Rectal exam abnormal stool - female: blood-tinged stool (On rectal) and External hemorrhoid(s) present (Without thrombosis or active bleeding) General: Yes no CVA tenderness Back/Spine/Pelvis Back: no CVA tenderness Skin Rashes: no rashes Wounds: no wounds Neuro General: patient oriented x3, tone normal and no meningeal signs Gait exam (Neuro): Normal gait present Extrem General: Yes normal to inspection and Yes no pedal edema Course Course Course Narrative: -1107--leukocytosis of 20.5, patient on chronic steroids > will give empiric Zosyn. Labs otherwise reassuring. Initial troponin 5.8 > will obtain 3hr repeat -UA contaminated > however Zosyn should cover -1256--lactic acid negative. Repeat troponin without 50% rise -occult stool positive XR chest 1V IMPRESSION: No acute disease. CT abdomen pelvis w IV con IMPRESSION: This exam is abnormal. There is felt to be edematous change most noted from the mid transverse colon through the rectosigmoid. Colitis is favored infectious versus noninfectious etiology. ? Other findings are as noted above. ? Fleischner guidelines were followed. -will obtain stool studies > 1300--on re-evaluation patient reports a milder respiratory improvement, still diffuse expiatory wheeze noted. Will give additional Xopenex neb and magnesium. Plan is for admission for further management Medical Decision Making Medical Decision Making MDM Narrative: 62yo F with HTN, HLD, CAD s/p PCI, DM2, PAD, ashtma, COPD, steroid-dependent rheumatoid arthritis, fibromyalgia, bipolar depression, on ASA, and noncompliant on Brilinta x3 weeks who presents to the ED complaining of diffuse abdominal pain/cramping, nausea, vomiting, and bloody diarrhea since 04:00. Also reports acute on chronic cough, SOB, and wheezing. On exam tachycardic, appears uncomfortable, take apneic, diffuse expiatory wheeze & decreased lung sounds throughout, abdomen soft diffusely tender, brbpr noted on rectal exam. Concern for COPD exacerbation vs viral syndrome vs diverticulitis/colitis vs GIB. Rule out pneumonia. Appendicitis/cholecystitis/pancreatitis lower on differential. Lower suspicion for ACS/PE at this time. Low concern for severe sepsis Plan: EKG, labs, UA, occult stool, CXR, CT AP, IVF, DuoNebs, IV Solu-Medrol, pain control, anticipated admission Please refer to course for remaining clinical decision making, interpretation of labs/imaging results, and discussions with consultants and/or family members. Differential Diagnosis Differential Diagnoses: The differential diagnosis associated with the presentation includes as above Admission/Observation Consideration of admission/observation: Escalation of care including admission/observation considered Consult Healthcare Provider Management of the patient was discussed with: Hospitalist Lab Data MDM Lab Attestation statement: I reviewed the patient's lab results. 01/23/23 10:01 01/23/23 10:01 Labs: Lab Results 01/23/23 01/23/23 01/23/23 Range/Units 10:01 10:01 10:01 WBC 20.5 H (4.8-10.8) X10*3/uL RBC 5.18 (4.20-5.50) X10*6/uL Hgb 14.9 (12.0-16.0) g/dl Hct 45.4 (37.0-47.0) % MCV 87.6 (80.0-98.0) fL MCH 28.8 (27.0-33.0) pg MCHC 32.8 (31.0-35.0) g/dl RDW 13.5 (11.0-16.0) % Plt Count 371 (160-400) X10*3/uL MPV 10.8 (9.4-12.3) fL Immature Gran % (Auto) Cancelled Neut % (Auto) Cancelled Lymph % (Auto) Cancelled [place] % (Auto) Cancelled Eos % (Auto) Cancelled Baso % (Auto) Cancelled Lymph # (Auto) Cancelled [place] # (Auto) Cancelled Eos # (Auto) Cancelled Baso # (Auto) Cancelled Abs Immat Gran (auto) Cancelled Absolute Neuts (auto) Cancelled Absolute Nucleated RBC 0.000 (0.0-0.012) X10*3/uL Nucleated RBC % (auto) 0.0 (0.0-0.2) /100WBC Neutrophils % (Manual) 86 H (45-73) % Band Neutrophils % 1 L (3-5) % Lymphocytes % (Manual) 9 L (20-40) % Monocytes % (Manual) 4 (2-11) % Abs Neuts (Manual) 17.8 H (2.0-8.3) X10*3/uL Lymphocytes # (Manual) 1.8 (1.2-4.9) X10*3/uL Monocytes # (Manual) 0.8 (0.1-1.2) X10*3/uL Platelet Estimate NORMAL (NORMAL) Plt Morphology Comment NORMAL RBC Morphology NORMAL PT (10.0-13.1) SEC INR (0.9-1.1) Sodium 143 (135-145) mmol/L Potassium 4.8 (3.3-5.1) mmol/L Chloride 108 (96-108) mmol/L Carbon Dioxide 23 (22-29) mmol/L Anion Gap 17 (12-20) BUN 11 (9-16) mg/dL Creatinine 0.96 (0.5-1.4) mg/dL Estim Creat Clear Calc 44.3 Estimated GFR 59 Random Glucose 132 H (60-115) mg/dL Lactic Acid (0.5-2.0) mmol/L Calcium 9.9 (8.4-10.2) mg/dL Magnesium 1.9 (1.6-2.6) mg/dL Total Bilirubin 0.4 (0.0-1.0) mg/dL Direct Bilirubin < 0.2 (0.0-0.5) mg/dL AST 14 (5-31) U/L ALT 13 (0-31) U/L Alkaline Phosphatase 75 (39-117) U/L Troponin I High Sens (<3.5-17.0) ng/L B-Natriuretic Peptide (<100) pg/mL Total Protein 7.2 (6.5-8.0) g/dL Albumin 4.4 (3.5-5.0) g/dL Lipase 30 (8-78) U/L Urine Color Urine Appearance Urine pH (5.0-9.0) Ur Specific [place] (1.005-1.025) Urine Protein (Neg-Trace) mg/dL Urine Glucose (UA) (Negative) mg/dL Urine Ketones (Negative) mg/dL Urine Blood (Negative) Urine Nitrite (Negative) Ur Leukocyte Esterase (Negative) Urine RBC (0-2) /HPF Urine WBC (0-5) /HPF Ur Squamous Epith Cells (0-2) /HPF Urine Bacteria (None Seen) Hyaline Casts (0-2) /LPF Stool Occult Blood (NEGATIVE) COVID-19 ([facility]) Negative (Negative) COVID-19 Clin Com See Note 01/23/23 01/23/23 01/23/23 Range/Units 10:01 10:01 10:01 WBC (4.8-10.8) X10*3/uL RBC (4.20-5.50) X10*6/uL Hgb (12.0-16.0) g/dl Hct (37.0-47.0) % MCV (80.0-98.0) fL MCH (27.0-33.0) pg MCHC (31.0-35.0) g/dl RDW (11.0-16.0) % Plt Count (160-400) X10*3/uL MPV (9.4-12.3) fL Immature Gran % (Auto) Neut % (Auto) Lymph % (Auto) [place] % (Auto) Eos % (Auto) Baso % (Auto) Lymph # (Auto) [place] # (Auto) Eos # (Auto) Baso # (Auto) Abs Immat Gran (auto) Absolute Neuts (auto) Absolute Nucleated RBC (0.0-0.012) X10*3/uL Nucleated RBC % (auto) (0.0-0.2) /100WBC Neutrophils % (Manual) (45-73) % Band Neutrophils % (3-5) % Lymphocytes % (Manual) (20-40) % Monocytes % (Manual) (2-11) % Abs Neuts (Manual) (2.0-8.3) X10*3/uL Lymphocytes # (Manual) (1.2-4.9) X10*3/uL Monocytes # (Manual) (0.1-1.2) X10*3/uL Platelet Estimate (NORMAL) Plt Morphology Comment RBC Morphology PT (10.0-13.1) SEC INR (0.9-1.1) Sodium (135-145) mmol/L Potassium (3.3-5.1) mmol/L Chloride (96-108) mmol/L Carbon Dioxide (22-29) mmol/L Anion Gap (12-20) BUN (9-16) mg/dL Creatinine (0.5-1.4) mg/dL Estim Creat Clear Calc Estimated GFR Random Glucose (60-115) mg/dL Lactic Acid (0.5-2.0) mmol/L Calcium (8.4-10.2) mg/dL Magnesium (1.6-2.6) mg/dL Total Bilirubin (0.0-1.0) mg/dL Direct Bilirubin (0.0-0.5) mg/dL AST (5-31) U/L ALT (0-31) U/L Alkaline Phosphatase (39-117) U/L Troponin I High Sens 5.8 (<3.5-17.0) ng/L B-Natriuretic Peptide 15 (<100) pg/mL Total Protein (6.5-8.0) g/dL Albumin (3.5-5.0) g/dL Lipase (8-78) U/L Urine Color Dark Yellow Urine Appearance Cloudy Urine pH 5.0 (5.0-9.0) Ur Specific [place] 1.025 (1.005-1.025) Urine Protein 30 (1+) H (Neg-Trace) mg/dL Urine Glucose (UA) Negative (Negative) mg/dL Urine Ketones Trace (Negative) mg/dL Urine Blood Negative (Negative) Urine Nitrite Negative (Negative) Ur Leukocyte Esterase Small (1+) H (Negative) Urine RBC 3-5 H (0-2) /HPF Urine WBC 6-10 H (0-5) /HPF Ur Squamous Epith Cells >20 (0-2) /HPF Urine Bacteria 4+ (None Seen) Hyaline Casts 0-2 (0-2) /LPF Stool Occult Blood (NEGATIVE) COVID-19 ([facility]) (Negative) COVID-19 Clin Com 01/23/23 01/23/23 01/23/23 Range/Units 11:21 11:22 11:43 WBC (4.8-10.8) X10*3/uL RBC (4.20-5.50) X10*6/uL Hgb (12.0-16.0) g/dl Hct (37.0-47.0) % MCV (80.0-98.0) fL MCH (27.0-33.0) pg MCHC (31.0-35.0) g/dl RDW (11.0-16.0) % Plt Count (160-400) X10*3/uL MPV (9.4-12.3) fL Immature Gran % (Auto) Neut % (Auto) Lymph % (Auto) [place] % (Auto) Eos % (Auto) Baso % (Auto) Lymph # (Auto) [place] # (Auto) Eos # (Auto) Baso # (Auto) Abs Immat Gran (auto) Absolute Neuts (auto) Absolute Nucleated RBC (0.0-0.012) X10*3/uL Nucleated RBC % (auto) (0.0-0.2) /100WBC Neutrophils % (Manual) (45-73) % Band Neutrophils % (3-5) % Lymphocytes % (Manual) (20-40) % Monocytes % (Manual) (2-11) % Abs Neuts (Manual) (2.0-8.3) X10*3/uL Lymphocytes # (Manual) (1.2-4.9) X10*3/uL Monocytes # (Manual) (0.1-1.2) X10*3/uL Platelet Estimate (NORMAL) Plt Morphology Comment RBC Morphology PT 13.3 H (10.0-13.1) SEC INR 1.2 H (0.9-1.1) Sodium (135-145) mmol/L Potassium (3.3-5.1) mmol/L Chloride (96-108) mmol/L Carbon Dioxide (22-29) mmol/L Anion Gap (12-20) BUN (9-16) mg/dL Creatinine (0.5-1.4) mg/dL Estim Creat Clear Calc Estimated GFR Random Glucose (60-115) mg/dL Lactic Acid 1.4 (0.5-2.0) mmol/L Calcium (8.4-10.2) mg/dL Magnesium (1.6-2.6) mg/dL Total Bilirubin (0.0-1.0) mg/dL Direct Bilirubin (0.0-0.5) mg/dL AST (5-31) U/L ALT (0-31) U/L Alkaline Phosphatase (39-117) U/L Troponin I High Sens (<3.5-17.0) ng/L B-Natriuretic Peptide (<100) pg/mL Total Protein (6.5-8.0) g/dL Albumin (3.5-5.0) g/dL Lipase (8-78) U/L Urine Color Urine Appearance Urine pH (5.0-9.0) Ur Specific [place] (1.005-1.025) Urine Protein (Neg-Trace) mg/dL Urine Glucose (UA) (Negative) mg/dL Urine Ketones (Negative) mg/dL Urine Blood (Negative) Urine Nitrite (Negative) Ur Leukocyte Esterase (Negative) Urine RBC (0-2) /HPF Urine WBC (0-5) /HPF Ur Squamous Epith Cells (0-2) /HPF Urine Bacteria (None Seen) Hyaline Casts (0-2) /LPF Stool Occult Blood POSITIVE (NEGATIVE) COVID-19 ([facility]) (Negative) COVID-19 Clin Com 01/23/23 Range/Units 11:43 WBC (4.8-10.8) X10*3/uL RBC (4.20-5.50) X10*6/uL Hgb (12.0-16.0) g/dl Hct (37.0-47.0) % MCV (80.0-98.0) fL MCH (27.0-33.0) pg MCHC (31.0-35.0) g/dl RDW (11.0-16.0) % Plt Count (160-400) X10*3/uL MPV (9.4-12.3) fL Immature Gran % (Auto) Neut % (Auto) Lymph % (Auto) [place] % (Auto) Eos % (Auto) Baso % (Auto) Lymph # (Auto) [place] # (Auto) Eos # (Auto) Baso # (Auto) Abs Immat Gran (auto) Absolute Neuts (auto) Absolute Nucleated RBC (0.0-0.012) X10*3/uL Nucleated RBC % (auto) (0.0-0.2) /100WBC Neutrophils % (Manual) (45-73) % Band Neutrophils % (3-5) % Lymphocytes % (Manual) (20-40) % Monocytes % (Manual) (2-11) % Abs Neuts (Manual) (2.0-8.3) X10*3/uL Lymphocytes # (Manual) (1.2-4.9) X10*3/uL Monocytes # (Manual) (0.1-1.2) X10*3/uL Platelet Estimate (NORMAL) Plt Morphology Comment RBC Morphology PT (10.0-13.1) SEC INR (0.9-1.1) Sodium (135-145) mmol/L Potassium (3.3-5.1) mmol/L Chloride (96-108) mmol/L Carbon Dioxide (22-29) mmol/L Anion Gap (12-20) BUN (9-16) mg/dL Creatinine (0.5-1.4) mg/dL Estim Creat Clear Calc Estimated GFR Random Glucose (60-115) mg/dL Lactic Acid (0.5-2.0) mmol/L Calcium (8.4-10.2) mg/dL Magnesium (1.6-2.6) mg/dL Total Bilirubin (0.0-1.0) mg/dL Direct Bilirubin (0.0-0.5) mg/dL AST (5-31) U/L ALT (0-31) U/L Alkaline Phosphatase (39-117) U/L Troponin I High Sens 7.1 (<3.5-17.0) ng/L B-Natriuretic Peptide (<100) pg/mL Total Protein (6.5-8.0) g/dL Albumin (3.5-5.0) g/dL Lipase (8-78) U/L Urine Color Urine Appearance Urine pH (5.0-9.0) Ur Specific [place] (1.005-1.025) Urine Protein (Neg-Trace) mg/dL Urine Glucose (UA) (Negative) mg/dL Urine Ketones (Negative) mg/dL Urine Blood (Negative) Urine Nitrite (Negative) Ur Leukocyte Esterase (Negative) Urine RBC (0-2) /HPF Urine WBC (0-5) /HPF Ur Squamous Epith Cells (0-2) /HPF Urine Bacteria (None Seen) Hyaline Casts (0-2) /LPF Stool Occult Blood (NEGATIVE) COVID-19 ([facility]) (Negative) COVID-19 Clin Com Independent Interpretation I performed an independent interpretation of an: EKG Radiology Impression Discussion of test interpretation with radiology: I have reviewed the radiologist's reading. External Record Review External record reviewed: Office record, Outpatient record, Prior outpatient labs, Prior outpatient radiology and Primary care record Prescription Management I considered prescription management with: Pain Medication Chronic Conditions Patient?s care impacted by: Diabetes and Hypertension Medications Administered Generic Name Dose Route Start Last Admin Trade Name Freq PRN Reason Stop Dose Admin Metronidazole 500 mg in 100 mls @ 100 mls/hr 01/23/23 16:00 01/23/23 17:42 Flagyl IV 100 mls/hr Q8H ELDER Administration Sodium Chloride 1,000 mls @ 100 mls/hr 01/23/23 15:45 01/23/23 16:05 Ns IVCONT 100 mls/hr .Q10H ELDER Administration Insulin Human Lispro 0 unit 01/23/23 16:30 01/23/23 17:41 Insulin Lispro 100 Unit/Ml 3 Ml Vial SUBCUT 4 unit QIDACHS ELDER Administration Protocol Omeprazole 20 mg 01/23/23 16:30 01/23/23 17:42 Omeprazole 20 Mg Capsule. PO 20 mg BID@0630,1630 [facility] Administration Sodium Chloride 3 ml 01/23/23 16:00 01/23/23 17:03 0.9 % Sodium Chloride Flush 3 Ml Syringe IVFLUSH Not Given QSHIFT ELDER Discontinued Medications Generic Name Dose Route Start Last Admin Trade Name Freq PRN Reason Stop Dose Admin Albuterol Sulfate 7.5 mg/ 0 mg 01/23/23 10:28 01/23/23 11:14 Ipratropium [place] 0.5 mg INHALE 01/23/23 10:29 2.5 each ONCE ONE Administration Sodium Chloride 1,000 mls @ 999 mls/hr 01/23/23 10:30 01/23/23 13:38 Ns IV 01/23/23 11:30 Infused .Q1H1M ELDER Infusion Piperacillin Sod/Tazobactam 50 mls @ 100 mls/hr 01/23/23 11:08 01/23/23 13:38 Sod 3.375 gm/ Sodium Chloride IV 01/23/23 11:37 Infused ONCE ONE Infusion Magnesium Sulfate 2 gm in 50 mls @ 25 mls/hr 01/23/23 13:01 01/23/23 17:03 Magnesium Sulfate/H2o IV 01/23/23 15:00 Infused ONCE ONE Infusion Iohexol 100 ml 01/23/23 11:07 01/23/23 11:09 Iohexol 350 Mg/Ml 100 Ml Infus..Btl IV 01/23/23 11:08 85 ml ONCE ONE Administration Levalbuterol HCl 1.25 mg 01/23/23 12:58 01/23/23 13:24 Levalbuterol Hcl 1.25 Mg/0.5 Ml Vial.Neb INHALE 01/23/23 12:59 1.25 mg ONCE ONE Administration Methylprednisolone Sodium Succinate 125 mg 01/23/23 10:28 01/23/23 11:31 Methylprednisolone Sod Succ 125 Mg/2 Ml Vial IVPUSH 01/23/23 10:29 125 mg ONCE ONE Administration Morphine Sulfate 4 mg 01/23/23 10:25 01/23/23 11:31 Morphine Sulfate 4 Mg/Ml Cartridge IVPUSH 01/23/23 10:26 4 mg ONCE ONE Administration Protocol Morphine Sulfate 4 mg 01/23/23 15:27 01/23/23 16:05 Morphine Sulfate 4 Mg/Ml Cartridge IM 4 mg Q6H PRN Administration Pain, Severe (Pain Scale 7-10) Protocol Ondansetron HCl 4 mg 01/23/23 10:25 01/23/23 11:31 Ondansetron Hcl 4 Mg/2 Ml Vial IVPUSH 01/23/23 10:26 4 mg ONCE ONE Administration Critical Care Time Critical Care Time Critical Care Time: Yes Total Critical Care Time: 40 Attestation: I have personally provided critical care time exclusive of time spent on separately billable procedures. Time includes review of lab data, radiology results, discussion with consultants, and monitoring for potential decompensation. Intervention performed as documented. Discharge Plan Discharge Clinical Impression: Acute exacerbation of chronic obstructive pulmonary disease (COPD), Colitis Patient Disposition: Admitted As Inpatient Interventions: Admission Worksheet (ED) Last Done: 01/23/23 17:18 Discharge Date/Time: 01/23/23 17:20
[2023-01-23 10:20] LABS: Appearance Urine Cloudy; Color Urine Dark Yellow; Glucose Urine UA Negative (Negative); Leukocyte Esterase Urine Small (1+) (Negative); Nitrite Urine Negative (Negative); Specific Gravity - Urine 1.025 (1.005-1.025); UMIC TRIGGER UACC YES; Urine Blood Negative (Negative); Urine Ketones Trace mg/dL (Negative); Urine Protein 30 (1+) mg/dL (Neg-Trace)
[2023-01-23 10:21] LABS: WBC ABN SCTR FOR CBC 1; White Blood Count 20.5 X10*3/uL (4.8-10.8)
[2023-01-23 10:27] LABS: Bacteria Urine 4+ (None Seen); Hyaline Casts Urine 0-2 /LPF (0-2); Squamous Epithelial Cell Urine >20 /HPF (0-2); UACC Culture Trigger YES
[2023-01-23 10:32] LABS: Alanine Aminotransferase 13 U/L (0-31); Albumin Level 4.4 g/dL (3.5-5.0); Alkaline Phosphatase 75 U/L (39-117); Anion Gap 17 (12-20); Aspartate Amino Transferase 14 U/L (5-31); Bilirubin Direct < 0.2 mg/dL (0.0-0.5); Bilirubin Total 0.4 mg/dL (0.0-1.0); Blood Urea Nitrogen 11 mg/dL (9-16); Calcium 9.9 mg/dL (8.4-10.2); Carbon Dioxide 23 mmol/L (22-29); Chloride 108 mmol/L (96-108); Creatinine Clr Calc Pharmacy 44.3; Estimated Glomerular Filt Rate 59; Glucose Random 132 mg/dL (60-115); Lipase 30 U/L (8-78); Potassium 4.8 mmol/L (3.3-5.1); Sodium 143 mmol/L (135-145); Total Protein 7.2 g/dL (6.5-8.0)
[2023-01-23 10:39] LABS: Troponin-I High Sensitivity 5.8 ng/L (<3.5-17.0)
[2023-01-23 10:42] LABS: COVID-19 Test Negative (Negative); IDNOW Serial# 16C4AD1C
[2023-01-23 10:48] LABS: Magnesium 1.9 mg/dL (1.6-2.6)
[2023-01-23 10:51] LABS: Band Neutrophils Percent 1 % (3-5); Lymphocytes Absolute Manual 1.8 X10*3/uL (1.2-4.9); Lymphocytes Percent Manual 9 % (20-40); Monocytes Absolute Manual 0.8 X10*3/uL (0.1-1.2); Monocytes Percent Manual 4 % (2-11); Neutrophils Absolute Manual 17.8 X10*3/uL (2.0-8.3); Neutrophils Percent Manual 86 % (45-73)
[2023-01-23 10:53] LABS: Platelet Estimate NORMAL (NORMAL); Platelet Morphology Comment NORMAL; RBC Morphology NORMAL
[2023-01-23] MEDS: iohexoL 350 MG/ML 100 ML INFUS..BTL IV (11:09)
[2023-01-23] MEDS: ondansetron HCL 4 MG/2 ML VIAL IVPUSH ×2 (11:31→21:31)
[2023-01-23] MEDS: methylPREDNISolone Sod Succ 125 MG/2 ML VIAL IVPUSH (11:31)
[2023-01-23] MEDS: Morphine Sulfate 4 MG/ML CARTRIDGE IVPUSH ×2 (11:31→22:32)
[2023-01-23] MEDS: 0.9 % Sodium Chloride 1,000 ML 999 ML IV (11:31)
[2023-01-23 11:41] LABS: Lactic Acid 1.4 mmol/L (0.5-2.0)
[2023-01-23 11:45] LABS: B Type Natriuretic Peptide 15 pg/mL (<100)
[2023-01-23 11:57] LABS: OBS Int Ctl Valid YES; OBS1 POSITIVE (NEGATIVE)
[2023-01-23 11:59] LABS: INTERNATIONAL NORM RATIO 1.2 (0.9-1.1); Prothrombin Time 13.3 SEC (10.0-13.1)
[2023-01-23 12:13] LABS: Troponin-I High Sensitivity 7.1 ng/L (<3.5-17.0)
[2023-01-23] MEDS: Piperacillin Sodium/Tazobactam 3.375 GM in 0.9 % Sodium Chloride 50 ML IV (12:15)
--- NOTE | 2023-01-23 12:38 | PC.NURSE ---
Pt reports red and itchy arm after receiving steriods, provider aware. Pt states that it has happened before but worse when she was upstairs with the same medication. Allergies have been updated. IV fluids and antibiotics infusing in new IV site. Awaiting ct scan results.
[2023-01-23] MEDS: Magnesium Sulfate/H2O 2 GM/50 ML PIGGYBACK IV (13:36)
--- NOTE | 2023-01-23 13:45 | P.HPHOSP_ITS ---
History of Present Illness Date of Service: 01/23/23 Attending physician on admission: Yayo Cosme Chief Complaint: Abdominal pain, bloody diarrhea Pt is a 62-year-old female with a PMH significant for?HTN, HDL, CAD s/p PCI, insulin-dependent diabetes, PAD, asthma, COPD, steroid-dependent rheumatoid arthritis, fibromyalgia, and bipolar depression who presents to the ED with?with abdominal pain and bloody diarrhea x1 day. Patient states that she was awoke from sleep at 04:00 this morning with severe, diffuse abdominal pain. Patient went to the bathroom where she had profuse, bright red bloody diarrhea and was also nauseous and vomiting at the same time. Denies hematemesis. Patient describes the pain as sharp, diffuse, radiating to her back. The patient states that her stool has been dark colored for the past week. Patient also complains of chronic shortness of breath, dyspnea with exertion, and nonproductive cough, worse this morning with associated chest tightness. Patient has been using her Brilinta every 3 hours to little effect. Patient has had chills, but denies fever. No headache, lightheadedness, dizziness. In the ED patient was afebrile, tachycardic at 139, satting at 96% on RA. Labs were significant for leukocytosis 20.5, otherwise unremarkable. H&H stable at 14.9/45.4. Stool positive for occult blood. UA positive for leukocyte esterase and WBC. CXR showed no acute disease. CT?of abdomen and pelvis found E Demadex change in the colon, suggestive of colitis, infectious versus noninfectious etiology. EKG demonstrated sinus tachycardia of 120 with no evidence of ST elevations or depressions. Pt was treated with DuoNebs, ondansetron, morphine, I VF, Solu-Medrol, Zosyn, and Mag sulfate. Pt will be admitted to the hospital for treatment and further evaluation colitis and acute COPD exacerbation. Review of Systems Review of Systems: Abdominal pain Bloodly diarrhea SOB, nonproductive cough No headache lightheadedness, dizziness Denies palpitations Denies dysuria, polyuria Yes all other systems are reviewed and are negative FOR[facility]LY [facility] Medical History Allergic rhinitis Anxiety Atherosclerotic cardiovascular disease Bipolar 1 disorder, depressed Bloody diarrhea Breast pain, right Bronchial asthma Colitis COPD (chronic obstructive pulmonary disease) COPD exacerbation Cough CVA (cerebral vascular accident) Depression Diabetes type 2, uncontrolled Dyslipidemia Fibromyalgia HLD (hyperlipidemia) Hospital discharge follow-up HTN (hypertension) Hyperkalemia Hyperlipidemia LDL goal <100 Hyperparathyroidism Hypertension Hypothyroid IDDM (insulin dependent diabetes mellitus) Infiltrating ductal carcinoma of left breast, stage 2 Insomnia Irritable bowel Osteoporosis PAD (peripheral artery disease) Rash Reactive airways dysfunction syndrome Restrictive airway disease Seropositive rheumatoid arthritis T2DM (type 2 diabetes mellitus) Thyroid nodule Vitamin D deficiency Family History Mother Diabetes HTN (hypertension) Uterus cancer Malignant tumor of head Breast cancer Father Diabetes HTN (hypertension) CVD (cardiovascular disease) Heart problem Maternal Aunt Breast cancer Brother Myocardial infarction S/P CABG x 4 Family/Other FH: mental illness Family/Other Lung cancer Other Mental health disorder Surgical History H/O cardiac catheterization H/O: hysterectomy History of bronchoscopy History of bunionectomy of both great toes History of colonoscopy History of esophagogastroduodenoscopy (EGD) History of lumpectomy of left breast History of pubovaginal sling History of tubal ligation Hx of endoscopy Social History Household Members: Other Household Members Other:: sister Housing: Apartment Are you a primary long term care administrator to a significant other at home: No Do you presently have visiting nurse or other home services: Yes Alcohol intake: never Patient Tobacco Use Status: Current everyday Tobacco user Tobacco use type: Cigarette Years Smoked: 50 +/- e-Cigarette/Vaping Use: Never Used Second Hand Smoke Exposure: No Advance Directives: Yes Advance Directives on File: Yes Advance Directives Date on File: 12/22/21 service: No Current occupational status: disabled Current occupation: rt handed Cognitive needs: No Hearing needs: No Vision needs: Yes Meds Allergies Allergy/AdvReac Type Severity Reaction Status Date / Time dog dander [DOGS] Allergy Intermediate Respiratory Verified 01/10/23 09:40 distress ibuprofen [Ibuprofen] Allergy Intermediate STOMACH Verified 01/10/23 09:40 UPSET, abdominal pain, nausea and vomiting shellfish derived Allergy Intermediate Hives Verified 01/10/23 09:40 etanercept [From Enbrel] AdvReac Intermediate Facial Verified 01/10/23 09:40 Swelling metformin AdvReac Intermediate diarrhea Verified 01/10/23 09:40 metronidazole [From FLAGYL] AdvReac Intermediate DIARRHEA Verified 01/10/23 09:40 prednisone AdvReac Intermediate hallucinations, Verified 01/10/23 09:40 higher than 20 methylprednisolone AdvReac Rash Verified 01/23/23 12:41 Active Medications: Current Medications Magnesium Sulfate (Magnesium Sulfate/H2o) 2 gm in 50 mls @ 25 mls/hr IV ONCE ONE Stop: 01/23/23 15:00 Last Admin: 01/23/23 13:36 Dose: 25 mls/hr Home Medications Medication Instructions Recorded Confirmed Last Taken Type nitroglycerin 0.4 mg sublingual 0.4 mg sublingual Q5M PRN Chest 01/03/22 01/23/23 Unknown History tablet Pain dulaglutide 1.5 mg/0.5 mL 1.5 mg subcut WE@0900 11/08/22 01/23/23 11/01/22 History subcutaneous pen injector (Trulicity) metoprolol tartrate 25 mg tablet 0.5 tab PO BID 11/08/22 01/23/23 11/08/22 09:00 History Physical Exam Vital Signs and Narrative: Vital Signs: Last Vital Signs Temp 98.8 F 01/23/23 11:56 Pulse 94 01/23/23 13:39 Resp 16 01/23/23 13:39 BP 128/81 01/23/23 13:39 Pulse Ox 99 01/23/23 13:39 O2 Del Method 01/23/23 13:39 BMI result Body Mass Index 23.6 Constitutional: Alert, in no acute distress. Mental Status: Oriented to person, place and time. Eyes: Pupils are equal, round, and reactive to light. Ear, Nose, and Throat: Oropharynx clear, mucous membranes moist. Ears and nose without deformities. Trachea midline. Respiratory: Diffuse expiratory wheezing bilaterally. Cardiovascular: S1, S2 regular. No murmurs, rubs, or gallops. Gastrointestinal: Abdomen soft, diffusely tender, non-distended. Normal bowel sounds. Neurologic: Cranial nerves II-XII are grossly intact bilaterally. No focal neurological deficits. Moves all extremities spontaneously. Skin: No rashes or lesions noted. Musculoskeletal: No cyanosis or clubbing. Extremities: No edema. Psychiatric: Normal mood and affect. Results Labs 01/23/23 10:01 01/23/23 10:01 Labs: Laboratory Results - last 24 hr 01/23/23 01/23/23 01/23/23 10:01 10:01 10:01 MCV 87.6 MCH 28.8 MCHC 32.8 RDW 13.5 Plt Count 371 MPV 10.8 Immature Gran % (Auto) Cancelled Neut % (Auto) Cancelled Lymph % (Auto) Cancelled Long % (Auto) Cancelled Eos % (Auto) Cancelled Baso % (Auto) Cancelled Lymph # (Auto) Cancelled Long # (Auto) Cancelled Eos # (Auto) Cancelled Baso # (Auto) Cancelled Abs Immat Gran (auto) Cancelled Absolute Neuts (auto) Cancelled Absolute Nucleated RBC 0.000 Nucleated RBC % (auto) 0.0 Neutrophils % (Manual) 86 H Band Neutrophils % 1 L Lymphocytes % (Manual) 9 L Monocytes % (Manual) 4 Abs Neuts (Manual) 17.8 H Lymphocytes # (Manual) 1.8 Monocytes # (Manual) 0.8 Platelet Estimate NORMAL Plt Morphology Comment NORMAL RBC Morphology NORMAL PT INR Anion Gap 17 Estim Creat Clear Calc 44.3 Estimated GFR 59 Random Glucose 132 H Lactic Acid Calcium 9.9 Magnesium 1.9 Total Bilirubin 0.4 Direct Bilirubin < 0.2 AST 14 ALT 13 Alkaline Phosphatase 75 Troponin I High Sens B-Natriuretic Peptide Total Protein 7.2 Albumin 4.4 Lipase 30 Urine Color Urine Appearance Urine pH Ur Specific [place] Urine Protein Urine Glucose (UA) Urine Ketones Urine Blood Urine Nitrite Ur Leukocyte Esterase Urine RBC Urine WBC Ur Squamous Epith Cells Urine Bacteria Hyaline Casts Stool Occult Blood COVID-19 ([facility]) Negative COVID-19 Clin Com See Note 01/23/23 01/23/23 01/23/23 10:01 10:01 10:01 MCV MCH MCHC RDW Plt Count MPV Immature Gran % (Auto) Neut % (Auto) Lymph % (Auto) Long % (Auto) Eos % (Auto) Baso % (Auto) Lymph # (Auto) Long # (Auto) Eos # (Auto) Baso # (Auto) Abs Immat Gran (auto) Absolute Neuts (auto) Absolute Nucleated RBC Nucleated RBC % (auto) Neutrophils % (Manual) Band Neutrophils % Lymphocytes % (Manual) Monocytes % (Manual) Abs Neuts (Manual) Lymphocytes # (Manual) Monocytes # (Manual) Platelet Estimate Plt Morphology Comment RBC Morphology PT INR Anion Gap Estim Creat Clear Calc Estimated GFR Random Glucose Lactic Acid Calcium Magnesium Total Bilirubin Direct Bilirubin AST ALT Alkaline Phosphatase Troponin I High Sens 5.8 B-Natriuretic Peptide 15 Total Protein Albumin Lipase Urine Color Dark Yellow Urine Appearance Cloudy Urine pH 5.0 Ur Specific [place] 1.025 Urine Protein 30 (1+) H Urine Glucose (UA) Negative Urine Ketones Trace Urine Blood Negative Urine Nitrite Negative Ur Leukocyte Esterase Small (1+) H Urine RBC 3-5 H Urine WBC 6-10 H Ur Squamous Epith Cells >20 Urine Bacteria 4+ Hyaline Casts 0-2 Stool Occult Blood COVID-19 ([facility]) COVID-19 [facility] 01/23/23 01/23/23 01/23/23 11:21 11:22 11:43 MCV MCH MCHC RDW Plt Count MPV Immature Gran % (Auto) Neut % (Auto) Lymph % (Auto) Long % (Auto) Eos % (Auto) Baso % (Auto) Lymph # (Auto) Long # (Auto) Eos # (Auto) Baso # (Auto) Abs Immat Gran (auto) Absolute Neuts (auto) Absolute Nucleated RBC Nucleated RBC % (auto) Neutrophils % (Manual) Band Neutrophils % Lymphocytes % (Manual) Monocytes % (Manual) Abs Neuts (Manual) Lymphocytes # (Manual) Monocytes # (Manual) Platelet Estimate Plt Morphology Comment RBC Morphology PT 13.3 H INR 1.2 H Anion Gap Estim Creat Clear Calc Estimated GFR Random Glucose Lactic Acid 1.4 Calcium Magnesium Total Bilirubin Direct Bilirubin AST ALT Alkaline Phosphatase Troponin I High Sens B-Natriuretic Peptide Total Protein Albumin Lipase Urine Color Urine Appearance Urine pH Ur Specific [place] Urine Protein Urine Glucose (UA) Urine Ketones Urine Blood Urine Nitrite Ur Leukocyte Esterase Urine RBC Urine WBC Ur Squamous Epith Cells Urine Bacteria Hyaline Casts Stool Occult Blood POSITIVE COVID-19 ([facility]) COVID-19 [facility] 01/23/23 11:43 MCV MCH MCHC RDW Plt Count MPV Immature Gran % (Auto) Neut % (Auto) Lymph % (Auto) Long % (Auto) Eos % (Auto) Baso % (Auto) Lymph # (Auto) Long # (Auto) Eos # (Auto) Baso # (Auto) Abs Immat Gran (auto) Absolute Neuts (auto) Absolute Nucleated RBC Nucleated RBC % (auto) Neutrophils % (Manual) Band Neutrophils % Lymphocytes % (Manual) Monocytes % (Manual) Abs Neuts (Manual) Lymphocytes # (Manual) Monocytes # (Manual) Platelet Estimate Plt Morphology Comment RBC Morphology PT INR Anion Gap Estim Creat Clear Calc Estimated GFR Random Glucose Lactic Acid Calcium Magnesium Total Bilirubin Direct Bilirubin AST ALT Alkaline Phosphatase Troponin I High Sens 7.1 B-Natriuretic Peptide Total Protein Albumin Lipase Urine Color Urine Appearance Urine pH Ur Specific [place] Urine Protein Urine Glucose (UA) Urine Ketones Urine Blood Urine Nitrite Ur Leukocyte Esterase Urine RBC Urine WBC Ur Squamous Epith Cells Urine Bacteria Hyaline Casts Stool Occult Blood COVID-19 ([facility]) COVID-19 Clin Com Imaging Radiologist's Impressions: Impressions Chest X-Ray 01/23/23 10:40 IMPRESSION: No acute disease. Abdomen/Pelvis CT 01/23/23 11:30 IMPRESSION: This exam is abnormal. There is felt to be edematous change most noted from the mid transverse colon through the rectosigmoid. Colitis is favored infectious versus noninfectious etiology. Other findings are as noted above. Fleischner guidelines were followed. Assessment and Plan (1) Colitis: Status: Acute (2) Acute exacerbation of chronic obstructive pulmonary disease (COPD): Status: Acute Plan Pt is a 62-year-old female with a PMH significant for?HTN, HDL, CAD s/p PCI, insulin-dependent diabetes, PAD, asthma, COPD, steroid-dependent rheumatoid arthritis, fibromyalgia, and bipolar depression who presents to the ED with?with abdominal pain and bloody diarrhea x1 day. Pt will be admitted to the hospital for treatment and further evaluation colitis and acute COPD exacerbation. Acute colitis CT suggestive of colitis, inflammatory vs infectious Patient afebrile, has leukocytosis, not septic IV abx: Ceftriaxone and Flagyl IVF to replenish GI losses from diarrhea and vomiting GI consult, patient followed by Dr. Abel Franklin CDiff, stool panel Acute asthma/COPD exacerbation Likely secondary to infectious process and/or vomiting DuoNebs q4 Patient states adverse reaction to Solu-Medrol, continue home oral prednisone Continue home inhalers Patient not on supplemental O2 Monitor respiratory status Hematochezia Likely secondary to colitis Patient's H&H stable, at baseline Follow CBC Leukocytosis Possibly secondary to infectious colitis and/or chronic steroid use Patient on IV ABX: ceftriaxone and Flagyl Follows CBC ? UTI Patient's UA came back positive for leukocyte esterase and WBC, nitrates negative Patient denies dysuria, polyuria Patient being covered by ceftriaxone Follow-up cultures Rheumatoid arthritis Continue prednisone, sulfasalazine Fibromyalgia Continue pregabalin Bipolar disorder Continue lamotrigine Insulin-dependent diabetes Hold home meds SSI, Lantus Bipolar disorder Continue lamotrigine HTN Continue home meds HLD Continue home meds Full Code Attending:?Dr. Cosme DVT Prophylaxis: Pneumatic boots Pt will require a hospitalization of at least two nights for treatment of?acute colitis and COPD exacerbation with IV ABX. Time Spent With Patient Time: Total time managing care of this patient today ____ minutes. Quality Stroke Does the patient have a stroke diagnosis?: No VTE Prior VTE?: No VTE Risk Level:: Medical - moderate - high VTE Device Contraindication: N/A - Device Ordered VTE Drug Contraindication: Treatment Not Indicated
--- NOTE | 2023-01-23 16:00 | MHC.EDTECH ---
this pct assumed care of pt at 1500 ,pt up to bathroom ,1600 rounding done ,vitals sign taken ,pt waiting to moved up to her room .
[2023-01-23] MEDS: Morphine Sulfate 4 MG/ML CARTRIDGE IM (16:05)
[2023-01-23] MEDS: 0.9 % Sodium Chloride 1,000 ML 100 ML IVCONT (16:05)
--- NOTE | 2023-01-23 16:33 | MHC.EDTECH ---
pt blood sugar check ,chico escalante aware of result .
[2023-01-23 16:57] LABS: Glucose, Whole Blood 228 mg/dL (60-115)
[2023-01-23] MEDS: Insulin Lispro 100 UNIT/ML 3 ML VIAL SUBCUT ×2 (17:41→21:24)
[2023-01-23] MEDS: Omeprazole 20 MG CAPSULE.DR PO (17:42)
[2023-01-23] MEDS: metroNIDAZOLE/NS 500 MG/100 ML PIGGYBACK 100 MG IV ×2 (17:42→23:58)
[2023-01-23] MEDS: Butalb/Acetamin/Caff 50/325/40 TABLET 1 TAB PO (17:49)
[2023-01-23] MEDS: cefTRIAXone sodium 1 GM in 0.9 % Sodium Chloride 50 ML IV (18:56)
[2023-01-23 20:56] LABS: Glucose, Whole Blood 201 mg/dL (60-115)
[2023-01-23] MEDS: Metoprolol Tartrate 12.5 MG HALFTAB PO (21:23)
[2023-01-23] MEDS: lamoTRIgine 25 MG TABLET PO (21:23)
[2023-01-23] MEDS: Pregabalin 200 MG CAPSULE PO (21:23)
[2023-01-23] MEDS: traZODone HCL 100 MG TABLET PO (21:23)
[2023-01-23] MEDS: Famotidine 20 MG TABLET PO (21:23)
[2023-01-23] MEDS: sulfaSALAzine 500 MG TABLET PO (21:23)
[2023-01-23] MEDS: Acetaminophen 325 MG TABLET 650 MG PO (21:23)
[2023-01-23] MEDS: Insulin Glargine,Hum.rec.anlog 100 UNIT/ML 10 ML VIAL 14 UNIT SUBCUT (21:24)
[2023-01-23] MEDS: 0.9 % Sodium Chloride Flush 3 ML SYRINGE IVFLUSH (21:26)
[2023-01-24] VITALS (7 sets, daily range): BP systolic 101–139; BP diastolic 56–87; PULSE 71–87; RESP 16–20; TEMP 36.1–36.6; O2SAT 95–98
--- NOTE | 2023-01-24 | ECG_ITS ---
Test Reason : cp Blood Pressure : / mmHG Vent. Rate : 080 BPM Atrial Rate : 080 BPM P-R Int : 138 ms QRS Dur : 082 ms QT Int : 360 ms P-R-T Axes : 077 072 070 degrees QTc Int : 415 ms Normal sinus rhythm Normal ECG When compared with ECG of 23-JAN-2023 10:42, Vent. rate has decreased BY 40 BPM Referred By: Edmond Johnson Electronically Signed By:MICHELL MONTES
[2023-01-24] MEDS: 0.9 % Sodium Chloride 1,000 ML 100 ML IVCONT ×3 (01:57→22:06)
[2023-01-24] MEDS: Omeprazole 20 MG CAPSULE.DR PO ×2 (05:36→16:40)
[2023-01-24] MEDS: Butalb/Acetamin/Caff 50/325/40 TABLET 1 TAB PO (05:50)
[2023-01-24] MEDS: Nitroglycerin 0.4 MG TAB.SUBL SUBLINGUAL (06:23)
[2023-01-24] MEDS: Morphine Sulfate 4 MG/ML CARTRIDGE IVPUSH ×2 (06:31→16:40)
[2023-01-24 06:34] LABS: Hematocrit 36.6 % (37.0-47.0); Hemoglobin 11.9 g/dl (12.0-16.0); Mean Corpuscular HGB Conc 32.5 g/dl (31.0-35.0); Mean Corpuscular Hemoglobin 28.4 pg (27.0-33.0); Mean Corpuscular Volume 87.4 fL (80.0-98.0); Mean Platelet Volume 10.5 fL (9.4-12.3); Platelet Count 306 X10*3/uL (160-400); Red Blood Count 4.19 X10*6/uL (4.20-5.50); Red Cell Distribution Width 13.7 % (11.0-16.0); White Blood Count 11.9 X10*3/uL (4.8-10.8)
--- NOTE | 2023-01-24 06:41 | PM.EVENT ---
Event Note Date of Service: 01/28/23 Event Note: Chest pain chest showed; EKG nonischemic. Troponin. Spoke to Cardiology consult->Dr blackmon. Given sublingual. Blood 100. Patient also received morphine. Will give dilaudid x1. Updated The day hospitalist Dr Dumont Time Spent With Patient Time: Total time managing care of this patient today ____ minutes.
[2023-01-24] MEDS: HYDROmorphone HCl 0.5 MG/0.5 ML SYRINGE 0.25 MG IVPUSH (06:51)
[2023-01-24 06:52] LABS: Troponin-I High Sensitivity < 3.5 ng/L (<3.5-17.0)
[2023-01-24 06:52] LABS: Anion Gap 12 (12-20); Blood Urea Nitrogen 5 mg/dL (9-16); Carbon Dioxide 22 mmol/L (22-29); Chloride 111 mmol/L (96-108); Creatinine Clr Calc Pharmacy 59.7; Estimated Glomerular Filt Rate > 60; Glucose Random 88 mg/dL (60-115); Potassium 4.6 mmol/L (3.3-5.1); Sodium 140 mmol/L (135-145)
--- NOTE | 2023-01-24 07:00 | CA_ITS ---
Transthoracic Echocardiogram Patient (Last, First, Middle): Sosa Joiner D Gender: Female Date of : 1960 Age: 62 Procedure Date: 01/24/2023 Procedure Type: Transthoracic Echocardiogram Location: S3W Height: 147.32 cm Weight: 52.16 kg BSA: 1.44 m2 Heart Rate: 80 bpm BP: 138 / 87 mmHg Stone Sawyer: SB Referring MD: Edmond Johnson MD Symptoms: chest pain Study Quality: Adequate ECG Rhythm: Sinus Conclusions: - The left ventricular systolic function is normal. The calculated ejection fraction is 60% by biplane method. - No obvious valvular pathology seen on this study. Findings Left Ventricle Normal left ventricular cavity size. There is normal left ventricular wall thickness. The left ventricular systolic function is normal. The calculated ejection fraction is 60% by biplane method. There is no evidence of regional wall motion abnormalities. Diastolic function is normal for age. LV peak GLS -17%. Right Ventricle Normal right ventricular cavity size. There is low normal right ventricular systolic function. Atria Both atria are normal in size. Aortic Valve There is a normal trileaflet aortic valve. There is no aortic valve stenosis. There is no aortic valve regurgitation. Mitral Valve The mitral valve appears normal. There is no mitral valve regurgitation. There is no mitral valve stenosis. Pulmonic Valve The pulmonic valve is likely normal. Tricuspid Valve Normal tricuspid valve structure. There is trace tricuspid valve regurgitation. There is no evidence of pulmonary hypertension. Great Vessels The asc aorta is normal in size. Venous The inferior vena cava is normal in size and collapses less than 50% with inspiration. Pericardium/Pleural There is no evidence of pericardial effusion. Prior Study Comparison No significant change compared to prior study dated: 09/20/2022. Recommendations, Care & Conclusions No obvious valvular pathology seen on this study. Measurements 2D Linear Measurements IVSd: 0.80 0.6-0.9/0.6-1.0 cm LVIDd: 4.48 3.9-5.3/4.2-5.9 cm LVIDd Index: 3.11 2.4-3.2/2.2-3.1 cm/m2 LVIDs: 3.32 2.0-3.6 cm LVPWd: 0.61 0.7-1.1 cm LA Diam: 2.80 2.7-3.8/3.0-4.0 cm LAIDs Index: 1.94 1.5-2.3 cm/m2 LV Mass: 118.35 67-162/88-224 g LV Mass Index: 82.19 43-95/49-115 g/m2 LVOT Diam: 2.00 3.0+(-)1.3 cm 2D Systolic Function EF 4C: 54.90 >55% EF 2C: 64.20 >55% EF BiP: 59.70 >55% Mitral Valve MV Pk E: 0.66 MV PK A: 0.85 MV Decel Time: 166.00 E/A: 0.80 E'Lateral: 7.72 E'Medial: 7.51 E/E' Med: 8.80 E/E' Lat: 8.50 PHT: 49.00 MVA PHT: 4.49 Decel Cross: 3.97 Aortic Valve AoV Pk Fco: 1.09 AoV Pk Grad: 5.00 GARETH: 2.20 LVOT LVOT Pk Fco: 0.76 LVOT Mn Fco: 0.52 LVOT VTI: 0.17 LVOT Pk Grad: 2.00 LVOT Mn Grad: 1.00 LVOT Diam: 2.00 LVOT Area: 3.14 Diastolic Function MV Pk E: 0.66 MV Pk A: 0.85 E/A: 0.80 E'Medial: 7.51 E/E' Med: 8.80 E' Laterial: 7.72 E/E' Lat: 8.50 Right Ventricle TAPSE (mm): 16.50 TVS' Fco: 9.79 Tricuspid Valve TR Pk Fco: 2.31 TR Pk Grad: 21.00 RA Press: 8.00 RVSP: 29.00 Great Vessels Aorta Sinus of Valsalva: 2.70 2.0-3.5 cm Ao Asc: 2.60 2.1-3.4 cm Pulmonary Veins Pulm Vein S/D 1.30 Pulmonary Valve PV Pk Fco: 0.77 Peak PV Grad: 2.00 Updated in Other Vendor System with Status of Final Delon No MD electronically signed on 01/24/2023 12:59:20 PM with status of Final
[2023-01-24] MEDS: Lidocaine 4 % Patch ADH..PATCH 1 PATCH TRANSDERMA (07:06)
--- NOTE | 2023-01-24 07:24 | PC.NURSE ---
pt had chest pain radiated to left shoulder and back. dr. cesar notified ordered ECG, and Lab troponin , given nitro 0.4 mg once, morphine 4 mg, and Dilaudid 0.25mg, lidocaine patch. pain was 8/10, 9/10, and 5/10. BP 139/87 HR 83, 117/71 HR 83, and 122/74 HR 79. provided O2 2L via NC. pt said it is better now, comfortably stay in bed resting. Troponin came back less than 3.5, ECG SR.
[2023-01-24] MEDS: metroNIDAZOLE/NS 500 MG/100 ML PIGGYBACK 100 MG IV ×3 (07:49→23:35)
[2023-01-24] MEDS: Losartan Potassium 25 MG TABLET PO (07:50)
[2023-01-24 07:51] LABS: Glucose, Whole Blood 79 mg/dL (60-115)
[2023-01-24] MEDS: Pregabalin 200 MG CAPSULE PO ×2 (07:51→20:57)
[2023-01-24] MEDS: predniSONE 5 MG TABLET PO (07:51)
[2023-01-24] MEDS: lamoTRIgine 25 MG TABLET PO ×2 (07:51→20:56)
[2023-01-24] MEDS: Metoprolol Tartrate 12.5 MG HALFTAB PO ×2 (07:51→20:56)
[2023-01-24] MEDS: Atorvastatin Calcium 80 MG TABLET PO (07:51)
[2023-01-24] MEDS: sulfaSALAzine 500 MG TABLET PO ×2 (07:51→20:56)
[2023-01-24 10:05] LABS: Troponin-I High Sensitivity 4.8 ng/L (<3.5-17.0)
--- NOTE | 2023-01-24 10:37 | PM.CNCAR ---
History of Present Illness History of Present Illness Date of Service: 01/24/23 Chief complaint: abd pain , bloody diarrhea Narrative: This is a cardiology consultation regarding chest pain. Patient generally sees Dr. Salmon in our office. Per his last note, history of coronary disease with PCI to circumflex in December 2021. She also has hypertension, dyslipidemia type 2 diabetes. Otherwise, COPD/fibromyalgia. Based on office notes, she has complained of chest discomfort and stress echocardiogram was unremarkable. Current admission is regarding abdominal pain and diarrhea. In this context, she had complained of chest pain as well as back pain today morning. At that time, EKG was performed which was unremarkable. She also has had troponins which did not show any acute changes. Currently, she is completely free of chest pain. Review of Systems Review of Systems: Yes all other systems are reviewed and are negative Constitutional: Constitutional: Reports as per HPI and Reports no additional constitutional complaints Eyes: Eyes: Reports as per HPI and Denies no additional eye complaints ENT: Denies system reviewed and no additional complaints, except as documented and Reports as per HPI Cardiovascular: Cardiovascular: Reports as per HPI, Reports no additional cardiovascular complaints, Denies acrocyanosis, Denies cool extremities, Reports chest pain, Denies leg edema, Denies lightheadedness, Denies palpitations and Reports dyspnea Respiratory: Respiratory: Reports as per HPI, Denies no additional respiratory complaints and Reports dyspnea Gastrointestinal: Gastrointestinal: Reports as per HPI and Denies no additional gastrointestinal complaints Genitourinary: Genitourinary: Reports as per HPI Musculoskeletal: Musculoskeletal: Reports no additional musculoskeletal complaints and Reports as per HPI Integumentary/Breasts: Skin/Breast: Reports system reviewed and no additional complaints, except as docu Neurologic: Reports system reviewed and no additional complaints, except as documented and Reports as per HPI Psychiatric: Psychiatric: Reports no additional psychiatric complaints and Reports as per HPI Endocrine: Endocrine: Reports no additional endocrine complaints, Reports as per HPI and Denies palpitations Hematologic/Lymphatic: Hematologic/Lymphatic: Reports no additional hematologic/lymphatic complaints and Reports as per HPI Allergic/Immunologic: Allergic/Immunologic: Reports no additional allergic/immunologic complaints and Reports as per HPI [facility] Past Medical History Medical History Allergic rhinitis Anxiety Atherosclerotic cardiovascular disease Bipolar 1 disorder, depressed Bloody diarrhea Breast pain, right Bronchial asthma Colitis COPD (chronic obstructive pulmonary disease) COPD exacerbation Cough CVA (cerebral vascular accident) Depression Diabetes type 2, uncontrolled Dyslipidemia Fibromyalgia HLD (hyperlipidemia) Hospital discharge follow-up HTN (hypertension) Hyperkalemia Hyperlipidemia LDL goal <100 Hyperparathyroidism Hypertension Hypothyroid IDDM (insulin dependent diabetes mellitus) Infiltrating ductal carcinoma of left breast, stage 2 Insomnia Irritable bowel Osteoporosis PAD (peripheral artery disease) Rash Reactive airways dysfunction syndrome Restrictive airway disease Seropositive rheumatoid arthritis T2DM (type 2 diabetes mellitus) Thyroid nodule Vitamin D deficiency Family History Family History Mother Diabetes HTN (hypertension) Uterus cancer Malignant tumor of head Breast cancer Father Diabetes HTN (hypertension) CVD (cardiovascular disease) Heart problem Maternal Aunt Breast cancer Brother Myocardial infarction S/P CABG x 4 Family/Other FH: mental illness Family/Other Lung cancer Other Mental health disorder Surgical History Surgical History H/O cardiac catheterization H/O: hysterectomy History of bronchoscopy History of bunionectomy of both great toes History of colonoscopy History of esophagogastroduodenoscopy (EGD) History of lumpectomy of left breast History of pubovaginal sling History of tubal ligation Hx of endoscopy Social History Social History Household Members: Family Household Members Other:: sister Housing: House Are you a primary rn acute care to a significant other at home: No Do you presently have visiting nurse or other home services: Yes (sister is program director/air personality) Alcohol intake: never Patient Tobacco Use Status: Current everyday Tobacco user Tobacco use type: Cigarette Cigarettes Per Day: 3 Years Smoked: 50 +/- e-Cigarette/Vaping Use: Never Used Second Hand Smoke Exposure: No Advance Directives Date on File: 12/22/21 service: No Current occupational status: disabled Current occupation: rt handed Cognitive needs: No Hearing needs: No Vision needs: Yes Meds Allergies Allergy/AdvReac Type Severity Reaction Status Date / Time dog dander [DOGS] Allergy Intermediate Respiratory Verified 01/10/23 09:40 distress ibuprofen [Ibuprofen] Allergy Intermediate STOMACH Verified 01/10/23 09:40 UPSET, abdominal pain, nausea and vomiting shellfish derived Allergy Intermediate Hives Verified 01/10/23 09:40 etanercept [From Enbrel] AdvReac Intermediate Facial Verified 01/10/23 09:40 Swelling metformin AdvReac Intermediate diarrhea Verified 01/10/23 09:40 metronidazole [From FLAGYL] AdvReac Intermediate DIARRHEA Verified 01/10/23 09:40 prednisone AdvReac Intermediate hallucinations, Verified 01/10/23 09:40 higher than 20 methylprednisolone AdvReac Rash Verified 01/23/23 12:41 Active Medications: Current Medications Acetaminophen (Acetaminophen 325 Mg Tablet) 650 mg PO Q6H PRN PRN Reason: Pain, Mild (Pain Scale 1-3) Last Admin: 01/23/23 21:23 Dose: 650 mg Acetaminophen/Butalbital/Caffeine (Butalb/Acetamin/Caff 50/325/40 Tablet) 1 tab PO Q4H PRN PRN Reason: headache Last Admin: 01/24/23 05:50 Dose: 1 tab Albuterol Sulfate (Albuterol Sulfate 90 Mcg 8 Gm Inhaler) 1 puff INHALE QID PRN PRN Reason: shortness of breath or wheezing Atorvastatin Calcium (Atorvastatin Calcium 80 Mg Tablet) 80 mg PO DAILY [facility] Last Admin: 01/24/23 07:51 Dose: 80 mg Albuterol Sulfate 2.5 mg/ (Ipratropium [place] 0.5 mg) 0 mg INHALE RQ4H WHILE AWAKE [facility] Last Admin: 01/24/23 10:19 Dose: Not Given Docusate Sodium (Docusate Sodium 100 Mg Capsule) 100 mg PO DAILY PRN PRN Reason: Constipation Famotidine (Famotidine 20 Mg Tablet) 20 mg PO BEDTIME [facility] Last Admin: 01/23/23 21:23 Dose: 20 mg Glucose (Glucose Gel 15 Gm Gel..Gram.) 15 gm PO Q15M PRN; Protocol PRN Reason: per Hypoglycemia Standing Ord. Ceftriaxone Sodium 1 gm/ (Sodium Chloride) 50 mls @ 100 mls/hr IV Q24H [facility] Last Infusion: 01/23/23 19:42 Dose: Infused Metronidazole (Flagyl) 500 mg in 100 mls @ 100 mls/hr IV Q8H [facility] Last Infusion: 01/24/23 09:59 Dose: Infused Sodium Chloride (Ns) 1,000 mls @ 100 mls/hr IVCONT .Q10H [facility] Last Admin: 01/24/23 01:57 Dose: 100 mls/hr Dextrose (D10) 250 mls @ 750 mls/hr IV Q15M PRN; Protocol PRN Reason: per Hypoglycemia Standing Ord. Insulin Glargine (Insulin Glargine,Hum.Rec.Anlog 100 Unit/Ml 10 Ml Vial) 14 unit SUBCUT BEDTIME [facility] Last Admin: 01/23/23 21:24 Dose: 14 unit Insulin Human Lispro (Insulin Lispro 100 Unit/Ml 3 Ml Vial) 0 unit SUBCUT QIDACHS [facility]; Protocol Last Admin: 01/24/23 07:53 Dose: Not Given Lamotrigine (Lamotrigine 25 Mg Tablet) 25 mg PO BID [facility] Last Admin: 01/24/23 07:51 Dose: 25 mg Losartan Potassium (Losartan Potassium 25 Mg Tablet) 25 mg PO DAILY [facility]; Protocol Last Admin: 01/24/23 07:50 Dose: 25 mg Metoprolol Tartrate (Metoprolol Tartrate 12.5 Mg Halftab) 12.5 mg PO BID [facility]; Protocol Last Admin: 01/24/23 07:51 Dose: 12.5 mg Morphine Sulfate (Morphine Sulfate 4 Mg/Ml Cartridge) 4 mg IVPUSH Q6H PRN; Protocol PRN Reason: Pain, Severe (Pain Scale 7-10) Last Admin: 01/24/23 06:31 Dose: 4 mg Nitroglycerin (Nitroglycerin 0.4 Mg Tab.Subl) 0.4 mg SUBLINGUAL Q5M PRN PRN Reason: Chest Pain Nitroglycerin (Nitroglycerin 0.4 Mg Tab.Subl) 0.4 mg SUBLINGUAL Q5MX3 PRN PRN Reason: Chest Pain Non-Formulary Medication (Budesonide) 0.25 mg INHALE BID [facility] Non-Formulary Medication (Lubiprostone [Amitiza]) 8 mcg PO BID [facility] Omeprazole (Omeprazole 20 Mg Capsule.Dr) 20 mg PO BID@0630,1630 [facility] Last Admin: 01/24/23 05:36 Dose: 20 mg Ondansetron HCl (Ondansetron Hcl 4 Mg/2 Ml Vial) 4 mg IVPUSH Q8H PRN PRN Reason: Nausea and Vomiting Last Admin: 01/23/23 21:31 Dose: 4 mg Prednisone (Prednisone 5 Mg Tablet) 5 mg PO DAILY [facility] Last Admin: 01/24/23 07:51 Dose: 5 mg Pregabalin (Pregabalin 200 Mg Capsule) 200 mg PO BID [facility] Last Admin: 01/24/23 07:51 Dose: 200 mg Sodium Chloride (0.9 % Sodium Chloride Flush 3 Ml Syringe) 3 ml IVFLUSH QSHIFT [facility] Last Admin: 01/24/23 07:42 Dose: Not Given Sulfasalazine (Sulfasalazine 500 Mg Tablet) 500 mg PO BID [facility] Last Admin: 01/24/23 07:51 Dose: 500 mg Trazodone HCl (Trazodone Hcl 100 Mg Tablet) 100 mg PO BEDTIME [facility] Last Admin: 01/23/23 21:23 Dose: 100 mg Home Medications Medication Instructions Recorded Confirmed Last Taken Type nitroglycerin 0.4 mg sublingual 0.4 mg sublingual Q5M PRN Chest 01/03/22 01/23/23 Unknown History tablet Pain dulaglutide 1.5 mg/0.5 mL 1.5 mg subcut WE@0900 11/08/22 01/23/23 11/01/22 [facility] metoprolol tartrate 25 mg tablet 0.5 tab PO BID 11/08/22 01/23/23 11/08/22 09:00 History Physical Exam Vital Signs: Vital Signs: Last Vital Signs Temp 97.8 F 01/24/23 07:27 Pulse 80 01/24/23 07:27 Resp 16 01/24/23 07:27 BP 125/78 01/24/23 07:27 Pulse Ox 98 01/24/23 07:24 O2 Del Method 01/24/23 07:24 O2 Flow Rate 2 01/24/23 07:24 BMI result Body Mass Index 24.1 Const: General: comfortable and no acute distress Orientation/consciousness: patient oriented x3 HEENT: Other: Unremarkable Head: Yes normal to inspection Neck: Neck: Yes normal visual inspection Chest: Chest palpation & inspection: normal inspection of the chest Resp: Auscultation: wheezes Cardio: Palpation: normal PMI Heart sounds: S1 normal heart sound present, S2 normal heart sound present, no gallops, no murmurs and no rubs GI: Palpation (GI): Soft to palpation Back/Spine/Pelvis: Other: unremarkable Skin: General skin exam: no rashes or lesions noted Neuro: General: patient oriented x3 Extrem: General: Yes normal to inspection Psych: Mental Status: mental status grossly normal Objective Labs and Meds 01/24/23 06:03 01/24/23 06:03 Lab results: Laboratory Results - last 24 hr 01/23/23 01/23/23 01/23/23 10:01 10:01 10:01 WBC RBC Hgb Hct MCV MCH MCHC RDW Plt Count MPV Absolute Nucleated RBC Nucleated RBC % (auto) Neutrophils % (Manual) 86 H Band Neutrophils % 1 L Lymphocytes % (Manual) 9 L Monocytes % (Manual) 4 Abs Neuts (Manual) 17.8 H Lymphocytes # (Manual) 1.8 Monocytes # (Manual) 0.8 Platelet Estimate NORMAL Plt Morphology Comment NORMAL RBC Morphology NORMAL PT INR Sodium Potassium Chloride Carbon Dioxide Anion Gap BUN Creatinine Estim Creat Clear Calc Estimated GFR POC Glucose Random Glucose Lactic Acid Calcium Magnesium 1.9 Troponin I High Sens B-Natriuretic Peptide Stool Occult Blood COVID-19 ([facility]) Negative [email or web address] Com See Note 01/23/23 01/23/23 01/23/23 10:01 10:01 11:21 WBC RBC Hgb Hct MCV MCH MCHC RDW Plt Count MPV Absolute Nucleated RBC Nucleated RBC % (auto) Neutrophils % (Manual) Band Neutrophils % Lymphocytes % (Manual) Monocytes % (Manual) Abs Neuts (Manual) Lymphocytes # (Manual) Monocytes # (Manual) Platelet Estimate Plt Morphology Comment RBC Morphology PT INR Sodium Potassium Chloride Carbon Dioxide Anion Gap BUN Creatinine Estim Creat Clear Calc Estimated GFR POC Glucose Random Glucose Lactic Acid 1.4 Calcium Magnesium Troponin I High Sens 5.8 B-Natriuretic Peptide 15 Stool Occult Blood COVID-19 ([facility]) [employer] 01/23/23 01/23/23 01/23/23 11:22 11:43 11:43 WBC RBC Hgb Hct MCV MCH MCHC RDW Plt Count MPV Absolute Nucleated RBC Nucleated RBC % (auto) Neutrophils % (Manual) Band Neutrophils % Lymphocytes % (Manual) Monocytes % (Manual) Abs Neuts (Manual) Lymphocytes # (Manual) Monocytes # (Manual) Platelet Estimate Plt Morphology Comment RBC Morphology PT 13.3 H INR 1.2 H Sodium Potassium Chloride Carbon Dioxide Anion Gap BUN Creatinine Estim Creat Clear Calc Estimated GFR POC Glucose Random Glucose Lactic Acid Calcium Magnesium Troponin I High Sens 7.1 B-Natriuretic Peptide Stool Occult Blood POSITIVE COVID-19 ([facility]) COVID-[employer] 01/23/23 01/23/23 01/24/23 16:30 20:29 06:03 WBC 11.9 H RBC 4.19 L Hgb 11.9 L D Hct 36.6 L MCV 87.4 MCH 28.4 MCHC 32.5 RDW 13.7 Plt Count 306 MPV 10.5 Absolute Nucleated RBC 0.000 Nucleated RBC % (auto) 0.0 Neutrophils % (Manual) Band Neutrophils % Lymphocytes % (Manual) Monocytes % (Manual) Abs Neuts (Manual) Lymphocytes # (Manual) Monocytes # (Manual) Platelet Estimate Plt Morphology Comment RBC Morphology PT INR Sodium Potassium Chloride Carbon Dioxide Anion Gap BUN Creatinine Estim Creat Clear Calc Estimated GFR POC Glucose 228 H 201 H Random Glucose Lactic Acid Calcium Magnesium Troponin I High Sens B-Natriuretic Peptide Stool Occult Blood COVID-19 ([facility]) COVID-19 [employer] Com 01/24/23 01/24/23 01/24/23 06:03 06:21 07:22 WBC RBC Hgb Hct MCV MCH MCHC RDW Plt Count MPV Absolute Nucleated RBC Nucleated RBC % (auto) Neutrophils % (Manual) Band Neutrophils % Lymphocytes % (Manual) Monocytes % (Manual) Abs Neuts (Manual) Lymphocytes # (Manual) Monocytes # (Manual) Platelet Estimate Plt Morphology Comment RBC Morphology PT INR Sodium 140 Potassium 4.6 Chloride 111 H Carbon Dioxide 22 Anion Gap 12 BUN 5 L Creatinine 0.72 Estim Creat Clear Calc 59.7 Estimated GFR > 60 POC Glucose 79 Random Glucose 88 Lactic Acid Calcium 8.0 L D Magnesium Troponin I High Sens < 3.5 D B-Natriuretic Peptide Stool Occult Blood COVID-19 ([facility]) COVID-19 [employer] Com 01/24/23 09:07 WBC RBC Hgb Hct MCV MCH MCHC RDW Plt Count MPV Absolute Nucleated RBC Nucleated RBC % (auto) Neutrophils % (Manual) Band Neutrophils % Lymphocytes % (Manual) Monocytes % (Manual) Abs Neuts (Manual) Lymphocytes # (Manual) Monocytes # (Manual) Platelet Estimate Plt Morphology Comment RBC Morphology PT INR Sodium Potassium Chloride Carbon Dioxide Anion Gap BUN Creatinine Estim Creat Clear Calc Estimated GFR POC Glucose Random Glucose Lactic Acid Calcium Magnesium Troponin I High Sens 4.8 B-Natriuretic Peptide Stool Occult Blood COVID-19 ([facility]) COVID-19 Clin Com ECG Interpretation: Admission EKG with some artifact. Otherwise, underlying sinus rhythm without any acute changes. EKG from this a.m. from the time of chest pain also shows normal sinus rhythm without any changes. Imaging Radiologist's impression: Impressions Chest X-Ray 01/23/23 10:40 IMPRESSION: No acute disease. Abdomen/Pelvis CT 01/23/23 11:30 IMPRESSION: This exam is abnormal. There is felt to be edematous change most noted from the mid transverse colon through the rectosigmoid. Colitis is favored infectious versus noninfectious etiology. Other findings are as noted above. Fleischner guidelines were followed. Assessment and Plan (1) Chest pain: Status: Acute (2) CAD (coronary artery disease): Status: Acute Plan High sensitivity troponins unremarkable. In the recent stress echocardiogram, unremarkable at 7 Mets Cardiac catheterization reviewed from 2021. Underwent circumflex stenting. No significant disease elsewhere. Overall, chest pain seems noncardiac in nature. Could be either from the COPD itself or fibromyalgia. Less likely anginal. Any case, completely resolved at this time. Will review the echocardiogram that has been completed. Will follow up with you. Also discussed with night hospitalist by kathleen regalado at the time of occurrence of chest pain. Time Spent With Patient Time: Total time managing care of this patient today 76 minutes. Procedures Date of Service Date of Service: 01/24/23
[2023-01-24] MEDS: ondansetron HCL 4 MG/2 ML VIAL IVPUSH (11:01)
[2023-01-24 11:18] LABS: Glucose, Whole Blood 112 mg/dL (60-115)
--- NOTE | 2023-01-24 13:37 | MHC.CM.PN ---
met with pt who had no previous servcies she reports being indpedent says she can walk home when dcd she is covid vax x 2
--- NOTE | 2023-01-24 15:44 | P.PNIM_ITS ---
Subjective Subjective Date of Service: 01/24/23 Interval History: the patient was seen and evaluated this morning Laying in bed, feels overall better had chest pain with negative EKG and Trop Abd pain less No reported other overnight events. Review of Systems Review of Systems: Yes all other systems are reviewed and are negative Physical Exam Vital Signs: Vital Signs: Last Vital Signs Temp 97.6 F 01/24/23 15:41 Pulse 80 01/24/23 15:41 Resp 17 01/24/23 15:41 BP 128/69 01/24/23 15:41 Pulse Ox 95 01/24/23 15:41 O2 Del Method 01/24/23 15:41 O2 Flow Rate 2 01/24/23 07:24 BMI result Body Mass Index 24.1 Const: Other: Constitutional : Awake, interactive, not in distress Neck : Normal inspection, Supple Cardiovascular : RRR, no JVP, no lower extremity edema Respiratory : good bilateral air entry, no crackles, wheezes or rhonchi Gastrointestinal: soft, lax, Normal bowel sounds, less tender in epigastric and left side of abd, no surgical signs Skin : Warm, Dry Neurological : Alert & oriented x3, No focal deficit , CN 2-12 within normal Objective Data Active Medications Acetaminophen (Acetaminophen 325 Mg Tablet) 650 mg PO Q6H PRN PRN Reason: Pain, Mild (Pain Scale 1-3) Last Admin: 01/23/23 21:23 Dose: 650 mg Documented By: DIEGO Acetaminophen/Butalbital/Caffeine (Butalb/Acetamin/Caff 50/325/40 Tablet) 1 tab PO Q4H PRN PRN Reason: headache Last Admin: 01/24/23 05:50 Dose: 1 tab Documented By: DIEGO Albuterol Sulfate (Albuterol Sulfate 90 Mcg 8 Gm Inhaler) 1 puff INHALE QID PRN PRN Reason: shortness of breath or wheezing Atorvastatin Calcium (Atorvastatin Calcium 80 Mg Tablet) 80 mg PO DAILY [facility] Last Admin: 01/24/23 07:51 Dose: 80 mg Documented By: DAVID Albuterol Sulfate 2.5 mg/ (Ipratropium [place] 0.5 mg) 0 mg INHALE RQ4H WHILE AWAKE [facility] Last Admin: 01/24/23 15:10 Dose: Not Given Documented By: HAWA Non-Admin Reason: Patient Refused Docusate Sodium (Docusate Sodium 100 Mg Capsule) 100 mg PO DAILY PRN PRN Reason: Constipation Famotidine (Famotidine 20 Mg Tablet) 20 mg PO BEDTIME [facility] Last Admin: 01/23/23 21:23 Dose: 20 mg Documented By: DIEGO Glucose (Glucose Gel 15 Gm Gel..Gram.) 15 gm PO Q15M PRN; Protocol PRN Reason: per Hypoglycemia Standing Ord. Ceftriaxone Sodium 1 gm/ (Sodium Chloride) 50 mls @ 100 mls/hr IV Q24H [facility] Last Infusion: 01/23/23 19:42 Dose: 0 mls/hr Documented By: DIEGO Metronidazole (Flagyl) 500 mg in 100 mls @ 100 mls/hr IV Q8H [facility] Last Admin: 01/24/23 15:07 Dose: 100 mls/hr Documented By: DAVID Sodium Chloride (Ns) 1,000 mls @ 100 mls/hr IVCONT .Q10H [facility] Last Admin: 01/24/23 15:07 Dose: 100 mls/hr Documented By: DAVID Dextrose (D10) 250 mls @ 750 mls/hr IV Q15M PRN; Protocol PRN Reason: per Hypoglycemia Standing Ord. Insulin Glargine (Insulin Glargine,Hum.Rec.Anlog 100 Unit/Ml 10 Ml Vial) 14 unit SUBCUT BEDTIME [facility] Last Admin: 01/23/23 21:24 Dose: 14 unit Documented By: DIEGO Insulin Human Lispro (Insulin Lispro 100 Unit/Ml 3 Ml Vial) 0 unit SUBCUT QID ACHS [facility]; Protocol Last Admin: 01/24/23 11:32 Dose: Not Given Documented By: DAVID Non-Admin Reason: No Insulin Coverage Lamotrigine (Lamotrigine 25 Mg Tablet) 25 mg PO BID [facility] Last Admin: 01/24/23 07:51 Dose: 25 mg Documented By: DAVID Losartan Potassium (Losartan Potassium 25 Mg Tablet) 25 mg PO DAILY [facility]; Protocol Last Admin: 01/24/23 07:50 Dose: 25 mg Documented By: DAVID Metoprolol Tartrate (Metoprolol Tartrate 12.5 Mg Halftab) 12.5 mg PO BID [facility]; Protocol Last Admin: 01/24/23 07:51 Dose: 12.5 mg Documented By: DAVID Morphine Sulfate (Morphine Sulfate 4 Mg/Ml Cartridge) 4 mg IVPUSH Q6H PRN; Protocol PRN Reason: Pain, Severe (Pain Scale 7-10) Last Admin: 01/24/23 06:31 Dose: 4 mg Documented By: VEE Nitroglycerin (Nitroglycerin 0.4 Mg Tab.Subl) 0.4 mg SUBLINGUAL Q5M PRN PRN Reason: Chest Pain Nitroglycerin (Nitroglycerin 0.4 Mg Tab.Subl) 0.4 mg SUBLINGUAL Q5MX3 PRN PRN Reason: Chest Pain Non-Formulary Medication (Budesonide) 0.25 mg INHALE BID [facility] Non-Formulary Medication (Lubiprostone [Amitiza]) 8 mcg PO BID [facility] Omeprazole (Omeprazole 20 Mg Capsule.Dr) 20 mg PO BID@0630,1630 [facility] Last Admin: 01/24/23 05:36 Dose: 20 mg Documented By: DIEGO Ondansetron HCl (Ondansetron Hcl 4 Mg/2 Ml Vial) 4 mg IVPUSH Q8H PRN PRN Reason: Nausea and Vomiting Last Admin: 01/24/23 11:01 Dose: 4 mg Documented By: DAVID Prednisone (Prednisone 5 Mg Tablet) 5 mg PO DAILY [facility] Last Admin: 01/24/23 07:51 Dose: 5 mg Documented By: DAVID Pregabalin (Pregabalin 200 Mg Capsule) 200 mg PO BID [facility] Last Admin: 01/24/23 07:51 Dose: 200 mg Documented By: DAVID Sodium Chloride (0.9 % Sodium Chloride Flush 3 Ml Syringe) 3 ml IVFLUSH QSHIFT [facility] Last Admin: 01/24/23 15:02 Dose: Not Given Documented By: DAVID Non-Admin Reason: IV Running Sulfasalazine (Sulfasalazine 500 Mg Tablet) 500 mg PO BID [facility] Last Admin: 01/24/23 07:51 Dose: 500 mg Documented By: DAVID Trazodone HCl (Trazodone Hcl 100 Mg Tablet) 100 mg PO BEDTIME [facility] Last Admin: 01/23/23 21:23 Dose: 100 mg Documented By: DIEGO Labs 01/24/23 06:03 01/24/23 06:03 Labs: Laboratory Results - last 24 hr 01/23/23 01/23/23 01/24/23 16:30 20:29 06:03 MCV 87.4 MCH 28.4 MCHC 32.5 RDW 13.7 Plt Count 306 MPV 10.5 Absolute Nucleated RBC 0.000 Nucleated RBC % (auto) 0.0 Anion Gap Estim Creat Clear Calc Estimated GFR POC Glucose 228 H 201 H Random Glucose Calcium Troponin I High Sens 01/24/23 01/24/23 01/24/23 06:03 06:21 07:22 MCV MCH MCHC RDW Plt Count MPV Absolute Nucleated RBC Nucleated RBC % (auto) Anion Gap 12 Estim Creat Clear Calc 59.7 Estimated GFR > 60 POC Glucose 79 Random Glucose 88 Calcium 8.0 L D Troponin I High Sens < 3.5 D 01/24/23 01/24/23 09:07 11:07 MCV MCH MCHC RDW Plt Count MPV Absolute Nucleated RBC Nucleated RBC % (auto) Anion Gap Estim Creat Clear Calc Estimated GFR POC Glucose 112 Random Glucose Calcium Troponin I High Sens 4.8 Microbiology Microbiology Results: Microbiology 01/23/23 11:43 Blood Culture - Preliminary Blood - Venous No growth after 24 hours. 01/23/23 11:21 Blood Culture - Preliminary Blood - Venous No growth after 24 hours. 01/23/23 Unknown Urine Culture - Final Urine clean catch - Urine bernal top No growth. Assessment and Plan (1) Acute exacerbation of chronic obstructive pulmonary disease (COPD): Status: Acute (2) Colitis: Status: Acute Plan Pt is a 62-year-old female with a PMH significant for?HTN, HDL, CAD s/p PCI, insulin-dependent diabetes, PAD, asthma, COPD, steroid-dependent rheumatoid arthritis, fibromyalgia, and bipolar depression who presents to the ED with?with abdominal pain and bloody diarrhea x1 day. Pt will be admitted to the hospital for treatment and further evaluation colitis and acute COPD exacerbation. Acute colitis Improving Continue Ceftriaxone and Flagyl IVF GI consult pending Acute asthma/COPD exacerbation DuoNebs q4 continue home oral prednisone Continue home inhalers Patient not on supplemental O2 Monitor respiratory status Hematochezia Likely secondary to colitis Patient's H&H stable, at baseline Follow CBC Chest pain EKG not showing any abnormal ST or T-waves Troponin negative Echo was done with normal EF Evaluated by Cardiology , noncardiac pain Leukocytosis Possibly secondary to infectious colitis and/or chronic steroid use Patient on IV ABX: ceftriaxone and Flagyl Follows CBC ? UTI Patient's UA came back positive for leukocyte esterase and WBC, nitrates negative Patient denies dysuria, polyuria Patient being covered by ceftriaxone Follow-up cultures Rheumatoid arthritis Continue prednisone, sulfasalazine Fibromyalgia Continue pregabalin Bipolar disorder Continue lamotrigine Insulin-dependent diabetes Hold home meds SSI, Lantus Bipolar disorder Continue lamotrigine HTN Continue home meds HLD Continue home meds Full Code Attending:?Dr. Csome DVT Prophylaxis: Pneumatic boots Pt will require a hospitalization of at least two nights for treatment of?acute colitis and COPD exacerbation with IV ABX. Time Spent With Patient Time: Total time managing care of this patient today ____ minutes. Quality Stroke Does the patient have a stroke diagnosis?: No VTE Prior VTE?: No VTE Risk Level:: Medical - moderate - high VTE Device Contraindication: N/A - Device Ordered VTE Drug Contraindication: Treatment Not Indicated
[2023-01-24 16:26] LABS: Glucose, Whole Blood 91 mg/dL (60-115)
[2023-01-24] MEDS: LORazepam 0.5 MG TABLET 0.25 MG PO (17:22)
[2023-01-24] MEDS: cefTRIAXone sodium 1 GM in 0.9 % Sodium Chloride 50 ML IV (17:48)
[2023-01-24 20:43] LABS: CDiff Gene PCR NEGATIVE (Negative)
[2023-01-24 20:51] LABS: Glucose, Whole Blood 146 mg/dL (60-115)
[2023-01-24] MEDS: traZODone HCL 100 MG TABLET PO (20:57)
[2023-01-24] MEDS: Insulin Glargine,Hum.rec.anlog 100 UNIT/ML 10 ML VIAL 14 UNIT SUBCUT (20:57)
[2023-01-24] MEDS: Famotidine 20 MG TABLET PO (20:57)
[2023-01-24] MEDS: 0.9 % Sodium Chloride Flush 3 ML SYRINGE IVFLUSH (20:57)
[2023-01-25] VITALS (10 sets, daily range): BP systolic 97–134; BP diastolic 53–78; PULSE 74–87; RESP 13–20; TEMP 36.2–37.2; O2SAT 95–99
[2023-01-25] MEDS: Morphine Sulfate 4 MG/ML CARTRIDGE IVPUSH ×3 (04:31→20:11)
[2023-01-25] MEDS: LORazepam 0.5 MG TABLET 0.25 MG PO (04:32)
[2023-01-25] MEDS: Omeprazole 20 MG CAPSULE.DR PO ×2 (05:35→15:58)
[2023-01-25 06:26] LABS: Hematocrit 33.7 % (37.0-47.0); Hemoglobin 10.7 g/dl (12.0-16.0); Mean Corpuscular HGB Conc 31.8 g/dl (31.0-35.0); Mean Corpuscular Hemoglobin 28.5 pg (27.0-33.0); Mean Corpuscular Volume 89.6 fL (80.0-98.0); Mean Platelet Volume 10.9 fL (9.4-12.3); Platelet Count 294 X10*3/uL (160-400); Red Blood Count 3.76 X10*6/uL (4.20-5.50); Red Cell Distribution Width 14.2 % (11.0-16.0); White Blood Count 10.7 X10*3/uL (4.8-10.8)
[2023-01-25 07:16] LABS: Anion Gap 12 (12-20); Blood Urea Nitrogen 5 mg/dL (9-16); Calcium 7.6 mg/dL (8.4-10.2); Carbon Dioxide 17 mmol/L (22-29); Chloride 118 mmol/L (96-108); Creatinine Clr Calc Pharmacy 58.1; Estimated Glomerular Filt Rate > 60; Glucose Random 50 mg/dL (60-115); Potassium 4.2 mmol/L (3.3-5.1); Sodium 143 mmol/L (135-145)
--- NOTE | 2023-01-25 07:21 | P.CNGI_ITS ---
History of Present Illness Data of Consult Service Date: 01/25/23 Requesting physician: Virginia Gomez Primary Care Provider: Adela Wasserman MD HPI Reason for consult: Colitis 62 YF with HTN, HDL, CAD s/p PCI, insulin-dependent diabetes, PAD, asthma, COPD, steroid-dependent rheumatoid arthritis, fibromyalgia, and bipolar depression [place] [facility] [place] for abdominal pain and bloody diarrhea x1 day.? Patient stated that she woke up from sleep at 04:00 on 01/23/23 with severe, diff use abdominal pain.? She went to the bathroom and noted diarrhea with bright red bloody diarrhea associated with nauseous and vomiting at the same time.? Pt denied hematemesis. She described the pain as sharp, diffuse, radiating to her back.? The patient stated her stool had been dark colored for the past week.? Patient also complains of chronic shortness of breath, dyspnea with exertion, and nonproductive cough, worse this morning with associated chest tightness.? Patient has been using her Brilinta every 3 hours to little effect.? Patient has had chills, but denies fever.? No headache, lightheadedness, dizziness. In the ED patient was afebrile, tachycardic at 139, satting at 96% on RA. Labs were significant for leukocytosis 20.5, otherwise unremarkable. H&H stable at 14.9/45.4. Stool positive for occult blood.? UA positive for leukocyte esterase and WBC. CXR showed no acute disease. EKG demonstrated sinus tachycardia of 120 with no evidence of ST elevations or depressions. Pt was treated with DuoNebs, ondansetron, morphine, IVF, Solu- Medrol, Zosyn, and Mag sulfate. Pt was admitted to the hospital for treatment and further evaluation colitis and acute COPD exacerbation. Of note pt had an episode of ischemic colitis in 08/201901/23/[address] SCAN SHOWED: GASTROINTESTINAL TRACT: Findings suggest edematous change in the colon, part of the transverse and the descending colon and sigmoid.. Review of Systems Review of Systems: Yes all other systems are reviewed and are negative Constitutional: Constitutional: Reports as per HPI and Reports no additional constitutional complaints Eyes: Eyes: Reports as per HPI and Denies no additional eye complaints ENT: Denies system reviewed and no additional complaints, except as documented and Reports as per HPI Cardiovascular: Cardiovascular: Reports as per HPI, Reports no additional cardiovascular complaints, Denies acrocyanosis, Denies cool extremities, Reports chest pain, Denies leg edema, Denies lightheadedness, Denies palpitations and Reports dyspnea Respiratory: Respiratory: Reports as per HPI, Denies no additional respiratory complaints and Reports dyspnea Gastrointestinal: Gastrointestinal: Reports as per HPI and Denies no additional gastrointestinal complaints Genitourinary: Genitourinary: Reports as per HPI Musculoskeletal: Musculoskeletal: Reports no additional musculoskeletal complaints and Reports as per HPI Integumentary/Breasts: Skin/Breast: Reports system reviewed and no additional complaints, except as docu Neurologic: Reports system reviewed and no additional complaints, except as documented and Reports as per HPI Psychiatric: Psychiatric: Reports no additional psychiatric complaints and Reports as per HPI Endocrine: Endocrine: Reports no additional endocrine complaints, Reports as per HPI and Denies palpitations Hematologic/Lymphatic: Hematologic/Lymphatic: Reports no additional hematologic/lymphatic complaints and Reports as per HPI Allergic/Immunologic: Allergic/Immunologic: Reports no additional allergic/immunologic complaints and Reports as per HPI [facility] Past Medical History Medical History Allergic rhinitis Anxiety Atherosclerotic cardiovascular disease Bipolar 1 disorder, depressed Bloody diarrhea Breast pain, right Bronchial asthma Colitis COPD (chronic obstructive pulmonary disease) COPD exacerbation Cough CVA (cerebral vascular accident) Depression Diabetes type 2, uncontrolled Dyslipidemia Fibromyalgia HLD (hyperlipidemia) Hospital discharge follow-up HTN (hypertension) Hyperkalemia Hyperlipidemia LDL goal <100 Hyperparathyroidism Hypertension Hypothyroid IDDM (insulin dependent diabetes mellitus) Infiltrating ductal carcinoma of left breast, stage 2 Insomnia Irritable bowel Osteoporosis PAD (peripheral artery disease) Rash Reactive airways dysfunction syndrome Restrictive airway disease Seropositive rheumatoid arthritis T2DM (type 2 diabetes mellitus) Thyroid nodule Vitamin D deficiency Family History Family History Mother Diabetes HTN (hypertension) Uterus cancer Malignant tumor of head Breast cancer Father Diabetes HTN (hypertension) CVD (cardiovascular disease) Heart problem Maternal Aunt Breast cancer Brother Myocardial infarction S/P CABG x 4 Family/Other FH: mental illness Family/Other Lung cancer Other Mental health disorder Surgical History Surgical History H/O cardiac catheterization H/O: hysterectomy History of bronchoscopy History of bunionectomy of both great toes History of colonoscopy History of esophagogastroduodenoscopy (EGD) History of lumpectomy of left breast History of pubovaginal sling History of tubal ligation Hx of endoscopy Social History Social History Household Members: Family Household Members Other:: sister Housing: House Are you a primary infant childcare provider to a significant other at home: No Do you presently have visiting nurse or other home services: Yes (sister is registered radiographer) Alcohol intake: never Patient Tobacco Use Status: Current everyday Tobacco user Tobacco use type: Cigarette Cigarettes Per Day: 3 Years Smoked: 50 +/- e-Cigarette/Vaping Use: Never Used Second Hand Smoke Exposure: No Advance Directives Date on File: 12/22/21 service: No Current occupational status: disabled Current occupation: rt handed Cognitive needs: No Hearing needs: No Vision needs: Yes Meds Allergies Allergy/AdvReac Type Severity Reaction Status Date / Time dog dander [DOGS] Allergy Intermediate Respiratory Verified 01/10/23 09:40 distress ibuprofen [Ibuprofen] Allergy Intermediate STOMACH Verified 01/10/23 09:40 UPSET, abdominal pain, nausea and vomiting shellfish derived Allergy Intermediate Hives Verified 01/10/23 09:40 etanercept [From Enbrel] AdvReac Intermediate Facial Verified 01/10/23 09:40 Swelling metformin AdvReac Intermediate diarrhea Verified 01/10/23 09:40 metronidazole [From FLAGYL] AdvReac Intermediate DIARRHEA Verified 01/10/23 09:40 prednisone AdvReac Intermediate hallucinations, Verified 01/10/23 09:40 higher than 20 methylprednisolone AdvReac Rash Verified 01/23/23 12:41 Active Medications: Current Medications Acetaminophen (Acetaminophen 325 Mg Tablet) 650 mg PO Q6H PRN PRN Reason: Pain, Mild (Pain Scale 1-3) Last Admin: 01/23/23 21:23 Dose: 650 mg Acetaminophen/Butalbital/Caffeine (Butalb/Acetamin/Caff 50/325/40 Tablet) 1 tab PO Q4H PRN PRN Reason: headache Last Admin: 01/24/23 05:50 Dose: 1 tab Albuterol Sulfate (Albuterol Sulfate 90 Mcg 8 Gm Inhaler) 1 puff INHALE QID PRN PRN Reason: shortness of breath or wheezing Atorvastatin Calcium (Atorvastatin Calcium 80 Mg Tablet) 80 mg PO DAILY [facility] Last Admin: 01/24/23 07:51 Dose: 80 mg Albuterol Sulfate 2.5 mg/ (Ipratropium [facility] 0.5 mg) 0 mg INHALE RQ4H WHILE AWAKE [facility] Last Admin: 01/24/23 19:12 Dose: Not Given Docusate Sodium (Docusate Sodium 100 Mg Capsule) 100 mg PO DAILY PRN PRN Reason: Constipation Famotidine (Famotidine 20 Mg Tablet) 20 mg PO BEDTIME [facility] Last Admin: 01/24/23 20:57 Dose: 20 mg Glucose (Glucose Gel 15 Gm Gel..Gram.) 15 gm PO Q15M PRN; Protocol PRN Reason: per Hypoglycemia Standing Ord. Ceftriaxone Sodium 1 gm/ (Sodium Chloride) 50 mls @ 100 mls/hr IV Q24H [facility] Last Infusion: 01/24/23 18:47 Dose: Infused Metronidazole (Flagyl) 500 mg in 100 mls @ 100 mls/hr IV Q8H [facility] Last Infusion: 01/25/23 00:36 Dose: Infused Sodium Chloride (Ns) 1,000 mls @ 100 mls/hr IVCONT .Q10H [facility] Last Admin: 01/24/23 22:06 Dose: 100 mls/hr Dextrose (D10) 250 mls @ 750 mls/hr IV Q15M PRN; Protocol PRN Reason: per Hypoglycemia Standing Ord. Insulin Glargine (Insulin Glargine,Hum.Rec.Anlog 100 Unit/Ml 10 Ml Vial) 14 unit SUBCUT BEDTIME [facility] Last Admin: 01/24/23 20:57 Dose: 14 unit Insulin Human Lispro (Insulin Lispro 100 Unit/Ml 3 Ml Vial) 0 unit SUBCUT QIDACHS [facility]; Protocol Last Admin: 01/24/23 20:55 Dose: Not Given Lamotrigine (Lamotrigine 25 Mg Tablet) 25 mg PO BID [facility] Last Admin: 01/24/23 20:56 Dose: 25 mg Lorazepam (Lorazepam 0.5 Mg Tablet) 0.25 mg PO Q8H PRN PRN Reason: anxiety/restlessness Last Admin: 01/25/23 04:32 Dose: 0.25 mg Losartan Potassium (Losartan Potassium 25 Mg Tablet) 25 mg PO DAILY [facility]; Protocol Last Admin: 01/24/23 07:50 Dose: 25 mg Metoprolol Tartrate (Metoprolol Tartrate 12.5 Mg Halftab) 12.5 mg PO BID [facility]; Protocol Last Admin: 01/24/23 20:56 Dose: 12.5 mg Morphine Sulfate (Morphine Sulfate 4 Mg/Ml Cartridge) 4 mg IVPUSH Q6H PRN; Protocol PRN Reason: Pain, Severe (Pain Scale 7-10) Last Admin: 01/25/23 04:31 Dose: 4 mg Nitroglycerin (Nitroglycerin 0.4 Mg Tab.Subl) 0.4 mg SUBLINGUAL Q5M PRN PRN Reason: Chest Pain Nitroglycerin (Nitroglycerin 0.4 Mg Tab.Subl) 0.4 mg SUBLINGUAL Q5MX3 PRN PRN Reason: Chest Pain Non-Formulary Medication (Budesonide) 0.25 mg INHALE BID [facility] Non-Formulary Medication (Lubiprostone [Amitiza]) 8 mcg PO BID [facility] Omeprazole (Omeprazole 20 Mg Capsule.Dr) 20 mg PO BID@0630,1630 [facility] Last Admin: 01/25/23 05:35 Dose: 20 mg Ondansetron HCl (Ondansetron Hcl 4 Mg/2 Ml Vial) 4 mg IVPUSH Q8H PRN PRN Reason: Nausea and Vomiting Last Admin: 01/24/23 11:01 Dose: 4 mg Prednisone (Prednisone 5 Mg Tablet) 5 mg PO DAILY [facility] Last Admin: 01/24/23 07:51 Dose: 5 mg Pregabalin (Pregabalin 200 Mg Capsule) 200 mg PO BID [facility] Last Admin: 01/24/23 20:57 Dose: 200 mg Sodium Chloride (0.9 % Sodium Chloride Flush 3 Ml Syringe) 3 ml IVFLUSH QSHIFT [facility] Last Admin: 01/24/23 20:57 Dose: 3 ml Sulfasalazine (Sulfasalazine 500 Mg Tablet) 500 mg PO BID [facility] Last Admin: 01/24/23 20:56 Dose: 500 mg Trazodone HCl (Trazodone Hcl 100 Mg Tablet) 100 mg PO BEDTIME [facility] Last Admin: 01/24/23 20:57 Dose: 100 mg Physical Exam Vital Signs: Vital Signs: Last Vital Signs Temp 97.1 F 01/25/23 02:58 Pulse 80 01/25/23 04:39 Resp 18 01/25/23 02:58 BP 129/78 01/25/23 04:39 Pulse Ox 97 01/25/23 02:58 O2 Del Method 01/25/23 02:58 O2 Flow Rate 2 01/24/23 07:24 BMI result Body Mass Index 24.1 Const: General: no acute distress and anxious Nutritional Appearance: average body habitus Orientation/consciousness: patient oriented x3 Limitations: no limitations HEENT: Head: Yes normal to inspection Ears: hearing grossly normal bilaterally Eyes: Sclerae: sclerae normal Pupils: Equal, round and reactive pupils present Neck: Neck: Yes normal visual inspection Chest: Chest palpation & inspection: normal inspection of the chest Resp: Effort & Inspection: normal respiratory effort Auscultation: clear to auscultation bilaterally Cardio: Palpation: normal PMI Rate: regular rate Rhythm: regular rhythm Heart sounds: S1 normal heart sound present, S2 normal heart sound present and no murmurs GI: Palpation (GI): Soft to palpation, Tenderness to palpation present (GI) (Moderate LLQ tenderness without rebound) and No hepatosplenomegaly present Auscultation: normal bowel sounds Rectal Exam - Female: deferred Skin: General skin exam: no rashes or lesions noted Neuro: General: patient oriented x3, gait normal and moves all extremities Cranial nerves: Yes Equal, round and reactive pupils present Psych: Appearance: grossly normal Mental Status: mental status grossly nor mal Results Labs 01/25/23 05:33 01/25/23 05:33 Labs: Short CBC 01/25/23 Range/Units 05:33 WBC 10.7 (4.8-10.8) X10*3/uL Hgb 10.7 L (12.0-16.0) g/dl Hct 33.7 L (37.0-47.0) % Plt Count 294 (160-400) X10*3/uL BMP 01/25/23 05:33 Sodium 143 Potassium 4.2 Chloride 118 H Carbon Dioxide 17 L BUN 5 L Creatinine 0.74 Calcium 7.6 L Microbiology Microbiology Results: Microbiology 01/23/23 11:43 Blood - Venous Blood Culture - Preliminary No growth after 24 hours. 01/23/23 11:21 Blood - Venous Blood Culture - Preliminary No growth after 24 hours. 01/23/23 Unknown Urine clean catch - Urine bernal top Urine Culture - Final No growth. Assessment and Plan (1) Colitis: Status: Acute (2) GERD (gastroesophageal reflux disease): Status: Acute Plan 62 YF with HTN, HDL, CAD s/p PCI, insulin-dependent diabetes, PAD, asthma, COPD, steroid-dependent rheumatoid arthritis, fibromyalgia, and bipolar depression [place] [facility] [place] for abdominal pain and bloody diarrhea x 1 day.? Of note pt had an episode of ischemic colitis in 08/201901/23/[address] SCAN SHOWED: GASTROINTESTINAL TRACT: Findings suggest edematous change in the colon, part of the transverse and the descending colon and sigmoid. Changes noted on Abd CT scan are likely due to ischemic or infectious colitis Of note, stool studies were negative for C diff colitis and GI panel was negative. RECOMMENDATIONS: 1. Agree with treatment with IV antibiotics and pain medications 2. Proceed with flexible sigmoidoscopy today for further evaluation. Procedure and potential complications including bleeding, perforation, reaction to anesthetic were reviewed with the patient. Time Spent With Patient Time: Total time managing care of this patient today ____ minutes. Procedures Date of Service Date of Service: 01/25/23
[2023-01-25 07:30] LABS: Glucose, Whole Blood 46 mg/dL (60-115)
[2023-01-25] MEDS: Dextrose 10 % 250 ML 750 ML IV (07:53)
[2023-01-25 08:02] LABS: Glucose, Whole Blood 43 mg/dL (60-115)
[2023-01-25] MEDS: Pregabalin 200 MG CAPSULE PO ×2 (08:10→22:03)
[2023-01-25] MEDS: lamoTRIgine 25 MG TABLET PO ×2 (08:10→22:03)
[2023-01-25] MEDS: Losartan Potassium 25 MG TABLET PO (08:10)
[2023-01-25] MEDS: sulfaSALAzine 500 MG TABLET PO ×2 (08:11→22:03)
[2023-01-25] MEDS: predniSONE 5 MG TABLET PO (08:11)
[2023-01-25] MEDS: Atorvastatin Calcium 80 MG TABLET PO (08:11)
[2023-01-25] MEDS: metroNIDAZOLE/NS 500 MG/100 ML PIGGYBACK 100 MG IV ×3 (08:12→23:57)
[2023-01-25] MEDS: Metoprolol Tartrate 12.5 MG HALFTAB PO ×2 (08:12→22:03)
[2023-01-25] MEDS: Dextrose 5 % and Lactated Ring 1,000 ML 100 ML IVCONT ×2 (08:12→22:06)
[2023-01-25 08:13] LABS: Glucose, Whole Blood 219 mg/dL (60-115)
--- NOTE | 2023-01-25 08:25 | PC.NURSE ---
Lab called critical glucose 50 at 0715. POC 46 checked at 0720. [address] Cosme made aware. POC [address] Cosme made aware. 2 more juices given, 250ml d10 hung per hypoglycemic protocol. random glucose stat lab ordered. POC [address] Cosme made aware.
[2023-01-25 08:39] LABS: Glucose Random 246 mg/dL (60-115)
--- NOTE | 2023-01-25 11:02 | P.PNIM_ITS ---
Subjective Subjective Date of Service: 01/25/23 Interval History: the patient was seen and evaluated this morning Laying in bed, feels overall better but having more diarrhea overnight plan for colonoscopy today No reported other overnight events. Review of Systems Review of Systems: Yes all other systems are reviewed and are negative Physical Exam Vital Signs: Vital Signs: Last Vital Signs Temp 98.1 F 01/25/23 08:00 Pulse 76 01/25/23 08:00 Resp 18 01/25/23 08:00 BP 111/56 L 01/25/23 08:00 Pulse Ox 99 01/25/23 08:00 O2 Del Method 01/25/23 02:58 O2 Flow Rate 2 01/24/23 07:24 BMI result Body Mass Index 24.1 Const: Other: Constitutional : Awake, interactive, not in distress Neck : Normal inspection, Supple Cardiovascular : RRR, no JVP, no lower extremity edema Respiratory : good bilateral air entry, no crackles, wheezes or rhonchi Gastrointestinal: soft, lax, Normal bowel sounds, no tenderness, no surgical signs Skin : Warm, Dry Neurological : Alert & oriented x3, No focal deficit , Objective Data Active Medications Acetaminophen (Acetaminophen 325 Mg Tablet) 650 mg PO Q6H PRN PRN Reason: Pain, Mild (Pain Scale 1-3) Last Admin: 01/23/23 21:23 Dose: 650 mg Documented By: DIEGO Acetaminophen/Butalbital/Caffeine (Butalb/Acetamin/Caff 50/325/40 Tablet) 1 tab PO Q4H PRN PRN Reason: headache Last Admin: 01/24/23 05:50 Dose: 1 tab Documented By: DIEGO Albuterol Sulfate (Albuterol Sulfate 90 Mcg 8 Gm Inhaler) 1 puff INHALE QID PRN PRN Reason: shortness of breath or wheezing Atorvastatin Calcium (Atorvastatin Calcium 80 Mg Tablet) 80 mg PO DAILY [facility] Last Admin: 01/25/23 08:11 Dose: 80 mg Documented By: DAVID Albuterol Sulfate 2.5 mg/ (Ipratropium [place] 0.5 mg) 0 mg INHALE RQ4H WHILE AWAKE [facility] Last Admin: 01/25/23 07:25 Dose: 2.5 each Documented By: HAWA Docusate Sodium (Docusate Sodium 100 Mg Capsule) 100 mg PO DAILY PRN PRN Reason: Constipation Famotidine (Famotidine 20 Mg Tablet) 20 mg PO BEDTIME [facility] Last Admin: 01/24/23 20:57 Dose: 20 mg Documented By: DIEGO Glucose (Glucose Gel 15 Gm Gel..Gram.) 15 gm PO Q15M PRN; Protocol PRN Reason: per Hypoglycemia Standing Ord. Ceftriaxone Sodium 1 gm/ (Sodium Chloride) 50 mls @ 100 mls/hr IV Q24H [facility] Last Infusion: 01/24/23 18:47 Dose: 0 mls/hr Documented By: DAVID Metronidazole (Flagyl) 500 mg in 100 mls @ 100 mls/hr IV Q8H [facility] Last Infusion: 01/25/23 09:21 Dose: 0 mls/hr Documented By: DAVID Dextrose (D10) 250 mls @ 750 mls/hr IV Q15M PRN; Protocol PRN Reason: per Hypoglycemia Standing Ord. Last Infusion: 01/25/23 08:28 Dose: 0 mls/hr Documented By: DAVID Dextrose/Lactated Ringer's (D5lr) 1,000 mls @ 100 mls/hr IVCONT .Q10H [facility] Last Admin: 01/25/23 08:12 Dose: 100 mls/hr Documented By: DAVID Insulin Glargine (Insulin Glargine,Hum.Rec.Anlog 100 Unit/Ml 10 Ml Vial) 8 unit SUBCUT BEDTIME [facility] Insulin Human Lispro (Insulin Lispro 100 Unit/Ml 3 Ml Vial) 0 unit SUBCUT QIDACHS [facility]; Protocol Last Admin: 01/25/23 07:28 Dose: Not Given Documented By: DAVID Non-Admin Reason: No Insulin Coverage Lamotrigine (Lamotrigine 25 Mg Tablet) 25 mg PO BID [facility] Last Admin: 01/25/23 08:10 Dose: 25 mg Documented By: DAVID Lorazepam (Lorazepam 0.5 Mg Tablet) 0.25 mg PO Q8H PRN PRN Reason: anxiety/restlessness Last Admin: 01/25/23 04:32 Dose: 0.25 mg Documented By: DIEGO Losartan Potassium (Losartan Potassium 25 Mg Tablet) 25 mg PO DAILY [facility]; Protocol Last Admin: 01/25/23 08:10 Dose: 25 mg Documented By: DAVID Metoprolol Tartrate (Metoprolol Tartrate 12.5 Mg Halftab) 12.5 mg PO BID [facility]; Protocol Last Admin: 01/25/23 08:12 Dose: 12.5 mg Documented By: DAVID Morphine Sulfate (Morphine Sulfate 4 Mg/Ml Cartridge) 4 mg IVPUSH Q6H PRN; Protocol PRN Reason: Pain, Severe (Pain Scale 7-10) Last Admin: 01/25/23 04:31 Dose: 4 mg Documented By: DIEGO Nitroglycerin (Nitroglycerin 0.4 Mg Tab.Subl) 0.4 mg SUBLINGUAL Q5M PRN PRN Reason: Chest Pain Nitroglycerin (Nitroglycerin 0.4 Mg Tab.Subl) 0.4 mg SUBLINGUAL Q5MX3 PRN PRN Reason: Chest Pain Non-Formulary Medication (Budesonide) 0.25 mg INHALE BID [facility] Non-Formulary Medication (Lubiprostone [Amitiza]) 8 mcg PO BID [facility] Omeprazole (Omeprazole 20 Mg Capsule.) 20 mg PO BID@0630,1630 [facility] Last Admin: 01/25/23 05:35 Dose: 20 mg Documented By: DIEGO Ondansetron HCl (Ondansetron Hcl 4 Mg/2 Ml Vial) 4 mg IVPUSH Q8H PRN PRN Reason: Nausea and Vomiting Last Admin: 01/24/23 11:01 Dose: 4 mg Documented By: DAVID Prednisone (Prednisone 5 Mg Tablet) 5 mg PO DAILY [facility] Last Admin: 01/25/23 08:11 Dose: 5 mg Documented By: DAVID Pregabalin (Pregabalin 200 Mg Capsule) 200 mg PO BID [facility] Last Admin: 01/25/23 08:10 Dose: 200 mg Documented By: DAVID Sodium Chloride (0.9 % Sodium Chloride Flush 3 Ml Syringe) 3 ml IVFLUSH QSHIFT [facility] Last Admin: 01/25/23 07:29 Dose: Not Given Documented By: DAVID Non-Admin Reason: IV Running Sulfasalazine (Sulfasalazine 500 Mg Tablet) 500 mg PO BID [facility] Last Admin: 01/25/23 08:11 Dose: 500 mg Documented By: DAVID Trazodone HCl (Trazodone Hcl 100 Mg Tablet) 100 mg PO BEDTIME [facility] Last Admin: 01/24/23 20:57 Dose: 100 mg Documented By: DIEGO Labs 01/25/23 05:33 01/25/23 08:23 Labs: Laboratory Results - last 24 hr 01/24/23 01/24/23 01/24/23 11:07 16:15 19:13 MCV MCH MCHC RDW Plt Count MPV Absolute Nucleated RBC Nucleated RBC % (auto) Anion Gap Estim Creat Clear Calc Estimated GFR POC Glucose 112 91 Random Glucose Calcium C. difficile Tox B Gene NEGATIVE 01/24/23 01/25/23 01/25/23 20:40 05:33 05:33 MCV 89.6 MCH 28.5 MCHC 31.8 RDW 14.2 Plt Count 294 MPV 10.9 Absolute Nucleated RBC 0.000 Nucleated RBC % (auto) 0.0 Anion Gap 12 Estim Creat Clear Calc 58.1 Estimated GFR > 60 POC Glucose 146 H Random Glucose 50 L* Calcium 7.6 L C. difficile Tox B Gene 01/25/23 01/25/23 01/25/23 07:20 07:41 08:08 MCV MCH MCHC RDW Plt Count MPV Absolute Nucleated RBC Nucleated RBC % (auto) Anion Gap Estim Creat Clear Calc Estimated GFR POC Glucose 46 L* 43 L* 219 H Random Glucose Calcium C. difficile Tox B Gene 01/25/23 08:23 MCV MCH MCHC RDW Plt Count MPV Absolute Nucleated RBC Nucleated RBC % (auto) Anion Gap Estim Creat Clear Calc Estimated GFR POC Glucose Random Glucose 246 H Calcium C. difficile Tox B Gene Microbiology Microbiology Results: Microbiology 01/23/23 11:43 Blood Culture - Preliminary Blood - Venous No growth after 24 hours. 01/23/23 11:21 Blood Culture - Preliminary Blood - Venous No growth after 24 hours. 01/23/23 Unknown Urine Culture - Final Urine clean catch - Urine bernal top No growth. Assessment and Plan (1) Acute exacerbation of chronic obstructive pulmonary disease (COPD): Status: Acute (2) Colitis: Status: Acute Plan Pt is a 62-year-old female with a PMH significant for?HTN, HDL, CAD s/p PCI, insulin-dependent diabetes, PAD, asthma, COPD, steroid-dependent rheumatoid arthritis, fibromyalgia, and bipolar depression who presents to the ED with?with abdominal pain and bloody diarrhea x1 day. Pt will be admitted to the hospital for treatment and further evaluation colitis and acute COPD exacerbation. Acute colitis Improving Continue Ceftriaxone and Flagyl change IVF tolerating diet diarrhea negative CDiff pending stool pathogen panel GI to do colonoscopy today Acute asthma/COPD exacerbation improved DuoNebs q4 continue home oral prednisone Continue home inhalers Monitor respiratory status Hematochezia Likely secondary to colitis Patient's H&H stable, at baseline Follow CBC Chest pain EKG not showing any abnormal ST or T-waves Troponin negative Echo was done with normal EF Evaluated by Cardiology , noncardiac pain Leukocytosis resolved Bacteruria Patient denies dysuria, polyuria negative cultures Rheumatoid arthritis Continue prednisone, sulfasalazine Fibromyalgia Continue pregabalin Bipolar disorder Continue lamotrigine Insulin-dependent diabetes Hold home meds SSI, Lantus Bipolar disorder Continue lamotrigine HTN Continue home meds HLD Continue home meds Full Code Attending:?Dr. Cosme DVT Prophylaxis: Pneumatic boots Pt will require a hospitalization of overnight for treatment of?acute colitis and COPD exacerbation with IV ABX. Time Spent With Patient Time: Total time managing care of this patient today ____ minutes. Quality Stroke Does the patient have a stroke diagnosis?: No VTE Prior VTE?: No VTE Risk Level:: Medical - moderate - high VTE Device Contraindication: N/A - Device Ordered VTE Drug Contraindication: Treatment Not Indicated
[2023-01-25 11:25] LABS: Glucose, Whole Blood 94 mg/dL (60-115)
[2023-01-25 11:42] LABS: Adenovirus F 40/41 Not Detected (Not Detect.); Astrovirus Not Detected (Not Detect.); Campylobacter Not Detected (Not Detect.); Cryptosporidium Not Detected (Not Detect.); Cyclospora cayetanensis Not Detected (Not Detect.); E. coli EAEC Not Detected (Not Detect.); E. coli EPEC Not Detected (Not Detect.); E. coli ETEC Not Detected (Not Detect.); E. coli STEC Not Detected (Not Detect.); Entamoeba histolytica Not Detected (Not Detect.); Giardia lamblia Not Detected (Not Detect.); Norovirus GI/GII Not Detected (Not Detect.); Plesiomonas shigelloides Not Detected (Not Detect.); Rotavirus A Not Detected (Not Detect.); Salmonella Not Detected (Not Detect.); Sapovirus Not Detected (Not Detect.); Shigella sp./EIEC Not Detected (Not Detect.); Vibrio Not Detected (Not Detect.); Vibrio Cholerae Not Detected (Not Detect.); Yersinia enterocolitica Not Detected (Not Detect.)
--- NOTE | 2023-01-25 12:01 | P.CDIM_ITS ---
PROVIDER RESPONSE TEXT: To clarify, the appropriate diagnosis supported by the clinical indicators: Mild intermittent QUERY TEXT: PHYSICIAN'S DOCUMENTATION REQUEST Date of Query: 01/25/2023 11:20 AM EST Patient Name: Sosa Joiner Admit Date: 01/23/2023 Dear Yayo Cosme, A review of the medical record indicates additional documentation may be needed. Please review below and update the documentation accordingly. The diagnosis of asthma was documented in the medical record but lacks specificity. Is there a diagno sis that correlates with the findings below: Per provider progress note on 01/24: Acute asthma/COPD exacerbation DuoNebs q4 Per H&P: SOB & nonproductive cough Medications: -Albuterol/Ipratropium nebulizer treatments -Ventolin inhaler Other indicators/risk factors: -PMH asthma -Patient requiring intermittent O2 via [place] Based on the above, please clarify in the Progress Notes further specificity regarding the type and a cuity of the asthma: Mild intermittent Mild persistent Moderate persistent Severe persistent Other Other (explain) Clinically unable to determine (explain) Thank you, Jennifer Lizama, MS, RN, CCRN Use of terms such as suspected, likely, concern for, or probable (associated with a specific diagnosi s that is being evaluated, monitored, or treated as if it exists) are acceptable and can be coded in the inpatient se tting, when documented at the time of discharge. Please use your independent medical judgment in providing your response. THIS QUERY IS PART OF THE PERMANENT MEDICAL RECORD
--- NOTE | 2023-01-25 12:44 | P.CONAN_ITS ---
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 (Acute) Headache (Acute) Polyarthralgia (Acute) Chest pain (Acute) HLD (hyperlipidemia) (Acute) Black stool (Acute) Cough (Acute) Allergic rhinitis (Acute) Colitis (Acute) Asthma (Acute) COPD (chronic obstructive pulmonary disease) (Acute) Vulvar abscess (Acute) COVID-19 (Acute) T2DM (type 2 diabetes mellitus) (Acute) Breast cancer (Acute) History of ischemic colitis (Acute) Chronic constipation (Acute) Colon cancer screening (Acute) History of Helicobacter pylori infection (Acute) Hepatitis A test positive (Acute) Breast cancer (Acute) Change in bowel habits (Acute) Abdominal bloating (Acute) Diverticulosis of colon (Acute) Left radial head fracture (Acute) Soft tissue injury of left wrist (Acute) Allergic rhinitis (Acute) Varicose veins of right lower extremity with inflammation (Acute) Raynauds disease (Acute) Close exposure to 2019-nCoV (Acute) Migraine (Acute) Neck pain (Acute) Back pain (Acute) Acute tension headache (Acute) Hypertensive urgency (Acute) Left arm weakness (Acute) Elevated troponin (Acute) NSTEMI (non-ST elevated myocardial infarction) (Acute) Diabetes mellitus (Acute) Stented coronary artery (Acute) RUQ abdominal pain (Acute) GERD (gastroesophageal reflux disease) (Acute) Dysphagia (Acute) Weight loss (Acute) Tendonitis of left rotator cuff (Acute) Abdominal pain (Acute) COPD exacerbation (Acute) Hyperkalemia (Acute) Hospital discharge follow-up (Acute) Colitis (Acute) H/O cardiac catheterization (Acute) Breast pain, right (Acute) Rash (Acute) Bloody diarrhea (Acute) PAD (peripheral artery disease) (Acute) Hyperlipidemia LDL goal <100 (Acute) Infiltrating ductal carcinoma of left breast, stage 2 (Acute) Insomnia (Acute) Dyslipidemia (Acute) Bipolar 1 disorder, depressed (Acute) Cough (Acute) Restrictive airway disease (Acute) Vitamin D deficiency (Acute) Osteoporosis (Acute) Hyperparathyroidism (Acute) Thyroid nodule (Acute) Fibromyalgia (Acute) Seropositive rheumatoid arthritis (Acute) Reactive airways dysfunction syndrome (Acute) Allergic rhinitis (Acute) Irritable bowel (Acute) Anxiety (Acute) Bronchial asthma (Acute) Diabetes type 2, uncontrolled (Acute) Past Medical History Medical History Allergic rhinitis Anxiety Atherosclerotic cardiovascular disease Bipolar 1 disorder, depressed Bloody diarrhea Breast pain, right Bronchial asthma Colitis COPD (chronic obstructive pulmonary disease) COPD exacerbation Cough CVA (cerebral vascular accident) Depression Diabetes type 2, uncontrolled Dyslipidemia Fibromyalgia HLD (hyperlipidemia) Hospital discharge follow-up HTN (hypertension) Hyperkalemia Hyperlipidemia LDL goal <100 Hyperparathyroidism Hypertension Hypothyroid IDDM (insulin dependent diabetes mellitus) Infiltrating ductal carcinoma of left breast, stage 2 Insomnia Irritable bowel Osteoporosis PAD (peripheral artery disease) Rash Reactive airways dysfunction syndrome Restrictive airway disease Seropositive rheumatoid arthritis T2DM (type 2 diabetes mellitus) Thyroid nodule Vitamin D deficiency Family History Family History Mother Diabetes HTN (hypertension) Uterus cancer Malignant tumor of head Breast cancer Father Diabetes HTN (hypertension) CVD (cardiovascular disease) Heart problem Maternal Aunt Breast cancer Brother Myocardial infarction S/P CABG x 4 Family/Other FH: mental illness Family/Other Lung cancer Other Mental health disorder Family history of problems with anesthesia: No Surgical History Surgical History H/O cardiac catheterization H/O: hysterectomy History of bronchoscopy History of bunionectomy of both great toes History of colonoscopy History of esophagogastroduodenoscopy (EGD) History of lumpectomy of left breast History of pubovaginal sling History of tubal ligation Hx of endoscopy History of Problems with Anesthesia: No Social History Social History Household Members: Family Household Members Other:: sister Housing: House Are you a primary child care aide to a significant other at home: No Do you presently have visiting nurse or other home services: Yes (sister is research biologist) Alcohol intake: never Patient Tobacco Use Status: Current everyday Tobacco user Tobacco use type: Cigarette Cigarettes Per Day: 3 Years Smoked: 50 +/- e-Cigarette/Vaping Use: Never Used Second Hand Smoke Exposure: No Advance Directives Date on File: 12/22/21 service: No Current occupational status: disabled Current occupation: rt handed Cognitive needs: No Hearing needs: No Vision needs: Yes Meds Allergies Allergy/AdvReac Type Severity Reaction Status Date / Time dog dander [DOGS] Allergy Intermediate Respiratory Verified 01/10/23 09:40 distress ibuprofen [Ibuprofen] Allergy Intermediate STOMACH Verified 01/10/23 09:40 UPSET, abdominal pain, nausea and vomiting shellfish derived Allergy Intermediate Hives Verified 01/10/23 09:40 etanercept [From Enbrel] AdvReac Intermediate Facial Verified 01/10/23 09:40 Swelling metformin AdvReac Intermediate diarrhea Verified 01/10/23 09:40 metronidazole [From FLAGYL] AdvReac Intermediate DIARRHEA Verified 01/10/23 09:40 prednisone AdvReac Intermediate hallucinations, Verified 01/10/23 09:40 higher than 20 methylprednisolone AdvReac Rash Verified 01/23/23 12:41 Active Medications: Current Medications Acetaminophen (Acetaminophen 325 Mg Tablet) 650 mg PO Q6H PRN PRN Reason: Pain, Mild (Pain Scale 1-3) Last Admin: 01/23/23 21:23 Dose: 650 mg Acetaminophen/Butalbital/Caffeine (Butalb/Acetamin/Caff 50/325/40 Tablet) 1 tab PO Q4H PRN PRN Reason: headache Last Admin: 01/24/23 05:50 Dose: 1 tab Albuterol Sulfate (Albuterol Sulfate 90 Mcg 8 Gm Inhaler) 1 puff INHALE QID PRN PRN Reason: shortness of breath or wheezing Atorvastatin Calcium (Atorvastatin Calcium 80 Mg Tablet) 80 mg PO DAILY [facility] Last Admin: 01/25/23 08:11 Dose: 80 mg Albuterol Sulfate 2.5 mg/ (Ipratropium [place] 0.5 mg) 0 mg INHALE RQ4H WHILE AWAKE [facility] Last Admin: 01/25/23 11:33 Dose: Not Given Docusate Sodium (Docusate Sodium 100 Mg Capsule) 100 mg PO DAILY PRN PRN Reason: Constipation Famotidine (Famotidine 20 Mg Tablet) 20 mg PO BEDTIME [facility] Last Admin: 01/24/23 20:57 Dose: 20 mg Glucose (Glucose Gel 15 Gm Gel..Gram.) 15 gm PO Q15M PRN; Protocol PRN Reason: per Hypoglycemia Standing Ord. Ceftriaxone Sodium 1 gm/ (Sodium Chloride) 50 mls @ 100 mls/hr IV Q24H [facility] Last Infusion: 01/24/23 18:47 Dose: Infused Metronidazole (Flagyl) 500 mg in 100 mls @ 100 mls/hr IV Q8H [facility] Last Infusion: 01/25/23 09:21 Dose: Infused Dextrose (D10) 250 mls @ 750 mls/hr IV Q15M PRN; Protocol PRN Reason: per Hypoglycemia Standing Ord. Last Infusion: 01/25/23 08:28 Dose: Infused Dextrose/Lactated Ringer's (D5lr) 1,000 mls @ 100 mls/hr IVCONT .Q10H [facility] Last Admin: 01/25/23 08:12 Dose: 100 mls/hr Insulin Glargine (Insulin Glargine,Hum.Rec.Anlog 100 Unit/Ml 10 Ml Vial) 8 unit SUBCUT BEDTIME [facility] Insulin Human Lispro (Insulin Lispro 100 Unit/Ml 3 Ml Vial) 0 unit SUBCUT QIDACHS [facility]; Protocol Last Admin: 01/25/23 11:31 Dose: Not Given Lamotrigine (Lamotrigine 25 Mg Tablet) 25 mg PO BID [facility] Last Admin: 01/25/23 08:10 Dose: 25 mg Lorazepam (Lorazepam 0.5 Mg Tablet) 0.25 mg PO Q8H PRN PRN Reason: anxiety/restlessness Last Admin: 01/25/23 04:32 Dose: 0.25 mg Losartan Potassium (Losartan Potassium 25 Mg Tablet) 25 mg PO DAILY [facility]; Protocol Last Admin: 01/25/23 08:10 Dose: 25 mg Metoprolol Tartrate (Metoprolol Tartrate 12.5 Mg Halftab) 12.5 mg PO BID [facility]; Protocol Last Admin: 01/25/23 08:12 Dose: 12.5 mg Morphine Sulfate (Morphine Sulfate 4 Mg/Ml Cartridge) 4 mg IVPUSH Q6H PRN; Protocol PRN Reason: Pain, Severe (Pain Scale 7-10) Last Admin: 01/25/23 11:17 Dose: 4 mg Nitroglycerin (Nitroglycerin 0.4 Mg Tab.Subl) 0.4 mg SUBLINGUAL Q5M PRN PRN Reason: Chest Pain Nitroglycerin (Nitroglycerin 0.4 Mg Tab.Subl) 0.4 mg SUBLINGUAL Q5MX3 PRN PRN Reason: Chest Pain Non-Formulary Medication (Budesonide) 0.25 mg INHALE BID [facility] Non-Formulary Medication (Lubiprostone [Amitiza]) 8 mcg PO BID [facility] Omeprazole (Omeprazole 20 Mg Capsule.Dr) 20 mg PO BID@0630,1630 [facility] Last Admin: 01/25/23 05:35 Dose: 20 mg Ondansetron HCl (Ondansetron Hcl 4 Mg/2 Ml Vial) 4 mg IVPUSH Q8H PRN PRN Reason: Nausea and Vomiting Last Admin: 01/24/23 11:01 Dose: 4 mg Prednisone (Prednisone 5 Mg Tablet) 5 mg PO DAILY [facility] Last Admin: 01/25/23 08:11 Dose: 5 mg Pregabalin (Pregabalin 200 Mg Capsule) 200 mg PO BID [facility] Last Admin: 01/25/23 08:10 Dose: 200 mg Sodium Chloride (0.9 % Sodium Chloride Flush 3 Ml Syringe) 3 ml IVFLUSH QSHIFT [facility] Last Admin: 01/25/23 07:29 Dose: Not Given Sulfasalazine (Sulfasalazine 500 Mg Tablet) 500 mg PO BID [facility] Last Admin: 01/25/23 08:11 Dose: 500 mg Trazodone HCl (Trazodone Hcl 100 Mg Tablet) 100 mg PO BEDTIME [facility] Last Admin: 01/24/23 20:57 Dose: 100 mg Home Medications Medication Instructions Recorded Confirmed Last Taken Type nitroglycerin 0.4 mg sublingual 0.4 mg sublingual Q5M PRN Chest 01/03/22 01/23/23 Unknown History tablet Pain dulaglutide 1.5 mg/0.5 mL 1.5 mg subcut WE@0900 11/08/22 01/23/23 11/01/22 History subcutaneous pen injector (Trulicity) metoprolol tartrate 25 mg tablet 0.5 tab PO BID 11/08/22 01/23/23 11/08/22 09:00 History Exam Exam Date and Time: January 25, 2023 124 Height,Weight and Vital Signs: Height 4 ft 10 in Weight 52.4 kg Last Vital Signs Temp 98.1 F 01/25/23 08:00 Pulse 76 01/25/23 08:00 Resp 18 01/25/23 08:00 BP 111/56 L 03/10/23 08:00 Pulse Ox 99 01/25/23 08:00 O2 Del Method 01/25/23 02:58 O2 Flow Rate 2 01/24/23 07:24 Pertinent Lab Results Pertinent Lab Results: Laboratory Tests 01/23/23 01/23/23 01/23/23 10:01 10:01 10:01 WBC 20.5 H RBC 5.18 Hgb 14.9 Hct 45.4 MCV 87.6 MCH 28.8 MCHC 32.8 RDW 13.5 Plt Count 371 MPV 10.8 Immature Gran % (Auto) Cancelled Neut % (Auto) Cancelled Lymph % (Auto) Cancelled [place] % (Auto) Cancelled Eos % (Auto) Cancelled Baso % (Auto) Cancelled Lymph # (Auto) Cancelled [place] # (Auto) Cancelled Eos # (Auto) Cancelled Baso # (Auto) Cancelled Abs Immat Gran (auto) Cancelled Absolute Neuts (auto) Cancelled Absolute Nucleated RBC 0.000 Nucleated RBC % (auto) 0.0 Neutrophils % (Manual) 86 H Band Neutrophils % 1 L Lymphocytes % (Manual) 9 L Monocytes % (Manual) 4 Abs Neuts (Manual) 17.8 H Lymphocytes # (Manual) 1.8 Monocytes # (Manual) 0.8 Platelet Estimate NORMAL Plt Morphology Comment NORMAL RBC Morphology NORMAL PT INR Sodium 143 Potassium 4.8 Chloride 108 Carbon Dioxide 23 Anion Gap 17 BUN 11 Creatinine 0.96 Estim Creat Clear Calc 44.3 Estimated GFR 59 POC Glucose Random Glucose 132 H Lactic Acid Calcium 9.9 Magnesium 1.9 Total Bilirubin 0.4 Direct Bilirubin < 0.2 AST 14 ALT 13 Alkaline Phosphatase 75 Troponin I High Sens B-Natriuretic Peptide Total Protein 7.2 Albumin 4.4 Lipase 30 Urine Color Urine Appearance Urine pH Ur Specific [place] Urine Protein Urine Glucose (UA) Urine Ketones Urine Blood Urine Nitrite Ur Leukocyte Esterase Urine RBC Urine WBC Ur Squamous Epith Cells Urine Bacteria Hyaline Casts Stool Occult Blood Stl C. cayetanensis PCR Stool Rotavirus A PCR Stl Adenov F 40/41 PCR Stool Astrovirus (PCR) Stool Campylobacter PCR Stool Cryptosporidium PCR Stl Sh Tox Pr E STEC PCR Stool E coli O157 PCR Stl Enterotoxigenic E PCR Stool EPEC (PCR) Stool EAEC (PCR) Stl E. histolytica PCR Stool Giardia Lamblia PCR Stl P. shigelloides PCR Stool Salmonella PCR Stool Sapovirus (PCR) Stl Shigella/EIEC PCR St Y.enterocolitica PCR Stool Vibrio (PCR) Stl Vibrio cholerae PCR Stl Norovirus GI/GII PCR C. difficile Tox B Gene COVID-19 ([facility]) Negative COVID-19 Clin Com See Note 01/23/23 01/23/23 01/23/23 10:01 10:01 10:01 WBC RBC Hgb Hct MCV MCH MCHC RDW Plt Count MPV Immature Gran % (Auto) Neut % (Auto) Lymph % (Auto) [place] % (Auto) Eos % (Auto) Baso % (Auto) Lymph # (Auto) [place] # (Auto) Eos # (Auto) Baso # (Auto) Abs Immat Gran (auto) Absolute Neuts (auto) Absolute Nucleated RBC Nucleated RBC % (auto) Neutrophils % (Manual) Band Neutrophils % Lymphocytes % (Manual) Monocytes % (Manual) Abs Neuts (Manual) Lymphocytes # (Manual) Monocytes # (Manual) Platelet Estimate Plt Morphology Comment RBC Morphology PT INR Sodium Potassium Chloride Carbon Dioxide Anion Gap BUN Creatinine Estim Creat Clear Calc Estimated GFR POC Glucose Random Glucose Lactic Acid Calcium Magnesium Total Bilirubin Direct Bilirubin AST ALT Alkaline Phosphatase Troponin I High Sens 5.8 B-Natriuretic Peptide 15 Total Protein Albumin Lipase Urine Color Dark Yellow Urine Appearance Cloudy Urine pH 5.0 Ur Specific [place] 1.025 Urine Protein 30 (1+) H Urine Glucose (UA) Negative Urine Ketones Trace Urine Blood Negative Urine Nitrite Negative Ur Leukocyte Esterase Small (1+) H Urine RBC 3-5 H Urine WBC 6-10 H Ur Squamous Epith Cells >20 Urine Bacteria 4+ Hyaline Casts 0-2 Stool Occult Blood Stl C. cayetanensis PCR Stool Rotavirus A PCR Stl Adenov F 40/41 PCR Stool Astrovirus (PCR) Stool Campylobacter PCR Stool Cryptosporidium PCR Stl Sh Tox Pr E STEC PCR Stool E coli O157 PCR Stl Enterotoxigenic E PCR Stool EPEC (PCR) Stool EAEC (PCR) Stl E. histolytica PCR Stool Giardia Lamblia PCR Stl P. shigelloides PCR Stool Salmonella PCR Stool Sapovirus (PCR) Stl Shigella/EIEC PCR St Y.enterocolitica PCR Stool Vibrio (PCR) Stl Vibrio cholerae PCR Stl Norovirus GI/GII PCR C. difficile Tox B Gene COVID-19 ([facility]) COVID-19 [employer] Com 01/23/23 01/23/23 01/23/23 11:21 11:22 11:43 WBC RBC Hgb Hct MCV MCH MCHC RDW Plt Count MPV Immature Gran % (Auto) Neut % (Auto) Lymph % (Auto) [place] % (Auto) Eos % (Auto) Baso % (Auto) Lymph # (Auto) [place] # (Auto) Eos # (Auto) Baso # (Auto) Abs Immat Gran (auto) Absolute Neuts (auto) Absolute Nucleated RBC Nucleated RBC % (auto) Neutrophils % (Manual) Band Neutrophils % Lymphocytes % (Manual) Monocytes % (Manual) Abs Neuts (Manual) Lymphocytes # (Manual) Monocytes # (Manual) Platelet Estimate Plt Morphology Comment RBC Morphology PT 13.3 H INR 1.2 H Sodium Potassium Chloride Carbon Dioxide Anion Gap BUN Creatinine Estim Creat Clear Calc Estimated GFR POC Glucose Random Glucose Lactic Acid 1.4 Calcium Magnesium Total Bilirubin Direct Bilirubin AST ALT Alkaline Phosphatase Troponin I High Sens B-Natriuretic Peptide Total Protein Albumin Lipase Urine Color Urine Appearance Urine pH Ur Specific [place] Urine Protein Urine Glucose (UA) Urine Ketones Urine Blood Urine Nitrite Ur Leukocyte Esterase Urine RBC Urine WBC Ur Squamous Epith Cells Urine Bacteria Hyaline Casts Stool Occult Blood POSITIVE Stl C. cayetanensis PCR Stool Rotavirus A PCR Stl Adenov F 40/41 PCR Stool Astrovirus (PCR) Stool Campylobacter PCR Stool Cryptosporidium PCR Stl Sh Tox Pr E STEC PCR Stool E coli O157 PCR Stl Enterotoxigenic E PCR Stool EPEC (PCR) Stool EAEC (PCR) Stl E. histolytica PCR Stool Giardia Lamblia PCR Stl P. shigelloides PCR Stool Salmonella PCR Stool Sapovirus (PCR) Stl Shigella/EIEC PCR St Y.enterocolitica PCR Stool Vibrio (PCR) Stl Vibrio cholerae PCR Stl Norovirus GI/GII PCR C. difficile Tox B Gene COVID-19 ([facility]) COVID-19 Clin Com 01/23/23 01/23/23 01/23/23 11:43 16:30 20:29 WBC RBC Hgb Hct MCV MCH MCHC RDW Plt Count MPV Immature Gran % (Auto) Neut % (Auto) Lymph % (Auto) [place] % (Auto) Eos % (Auto) Baso % (Auto) Lymph # (Auto) [place] # (Auto) Eos # (Auto) Baso # (Auto) Abs Immat Gran (auto) Absolute Neuts (auto) Absolute Nucleated RBC Nucleated RBC % (auto) Neutrophils % (Manual) Band Neutrophils % Lymphocytes % (Manual) Monocytes % (Manual) Abs Neuts (Manual) Lymphocytes # (Manual) Monocytes # (Manual) Platelet Estimate Plt Morphology Comment RBC Morphology PT INR Sodium Potassium Chloride Carbon Dioxide Anion Gap BUN Creatinine Estim Creat Clear Calc Estimated GFR POC Glucose 228 H 201 H Random Glucose Lactic Acid Calcium Magnesium Total Bilirubin Direct Bilirubin AST ALT Alkaline Phosphatase Troponin I High Sens 7.1 B-Natriuretic Peptide Total Protein Albumin Lipase Urine Color Urine Appearance Urine pH Ur Specific [place] Urine Protein Urine Glucose (UA) Urine Ketones Urine Blood Urine Nitrite Ur Leukocyte Esterase Urine RBC Urine WBC Ur Squamous Epith Cells Urine Bacteria Hyaline Casts Stool Occult Blood Stl C. cayetanensis PCR Stool Rotavirus A PCR Stl Adenov F 40/41 PCR Stool Astrovirus (PCR) Stool Campylobacter PCR Stool Cryptosporidium PCR Stl Sh Tox Pr E STEC PCR Stool E coli O157 PCR Stl Enterotoxigenic E PCR Stool EPEC (PCR) Stool EAEC (PCR) Stl E. histolytica PCR Stool Giardia Lamblia PCR Stl P. shigelloides PCR Stool Salmonella PCR Stool Sapovirus (PCR) Stl Shigella/EIEC PCR St Y.enterocolitica PCR Stool Vibrio (PCR) Stl Vibrio cholerae PCR Stl Norovirus GI/GII PCR C. difficile Tox B Gene COVID-19 ([facility]) COVID-19 Clin Com 01/24/23 01/24/23 01/24/23 06:03 06:03 06:21 WBC 11.9 H RBC 4.19 L Hgb 11.9 L D Hct 36.6 L MCV 87.4 MCH 28.4 MCHC 32.5 RDW 13.7 Plt Count 306 MPV 10.5 Immature Gran % (Auto) Neut % (Auto) Lymph % (Auto) [place] % (Auto) Eos % (Auto) Baso % (Auto) Lymph # (Auto) [place] # (Auto) Eos # (Auto) Baso # (Auto) Abs Immat Gran (auto) Absolute Neuts (auto) Absolute Nucleated RBC 0.000 Nucleated RBC % (auto) 0.0 Neutrophils % (Manual) Band Neutrophils % Lymphocytes % (Manual) Monocytes % (Manual) Abs Neuts (Manual) Lymphocytes # (Manual) Monocytes # (Manual) Platelet Estimate Plt Morphology Comment RBC Morphology PT INR Sodium 140 Potassium 4.6 Chloride 111 H Carbon Dioxide 22 Anion Gap 12 BUN 5 L Creatinine 0.72 Estim Creat Clear Calc 59.7 Estimated GFR > 60 POC Glucose Random Glucose 88 Lactic Acid Calcium 8.0 L D Magnesium Total Bilirubin Direct Bilirubin AST ALT Alkaline Phosphatase Troponin I High Sens < 3.5 D B-Natriuretic Peptide Total Protein Albumin Lipase Urine Color Urine Appearance Urine pH Ur Specific [place] Urine Protein Urine Glucose (UA) Urine Ketones Urine Blood Urine Nitrite Ur Leukocyte Esterase Urine RBC Urine WBC Ur Squamous Epith Cells Urine Bacteria Hyaline Casts Stool Occult Blood Stl C. cayetanensis PCR Stool Rotavirus A PCR Stl Adenov F 40/41 PCR Stool Astrovirus (PCR) Stool Campylobacter PCR Stool Cryptosporidium PCR Stl Sh Tox Pr E STEC PCR Stool E coli O157 PCR Stl Enterotoxigenic E PCR Stool EPEC (PCR) Stool EAEC (PCR) Stl E. histolytica PCR Stool Giardia Lamblia PCR Stl P. shigelloides PCR Stool Salmonella PCR Stool Sapovirus (PCR) Stl Shigella/EIEC PCR St Y.enterocolitica PCR Stool Vibrio (PCR) Stl Vibrio cholerae PCR Stl Norovirus GI/GII PCR C. difficile Tox B Gene COVID-19 ([facility]) COVID-19 Clin Com 01/24/23 01/24/23 01/24/23 07:22 09:07 11:07 WBC RBC Hgb Hct MCV MCH MCHC RDW Plt Count MPV Immature Gran % (Auto) Neut % (Auto) Lymph % (Auto) [place] % (Auto) Eos % (Auto) Baso % (Auto) Lymph # (Auto) [place] # (Auto) Eos # (Auto) Baso # (Auto) Abs Immat Gran (auto) Absolute Neuts (auto) Absolute Nucleated RBC Nucleated RBC % (auto) Neutrophils % (Manual) Band Neutrophils % Lymphocytes % (Manual) Monocytes % (Manual) Abs Neuts (Manual) Lymphocytes # (Manual) Monocytes # (Manual) Platelet Estimate Plt Morphology Comment RBC Morphology PT INR Sodium Potassium Chloride Carbon Dioxide Anion Gap BUN Creatinine Estim Creat Clear Calc Estimated GFR POC Glucose 79 112 Random Glucose Lactic Acid Calcium Magnesium Total Bilirubin Direct Bilirubin AST ALT Alkaline Phosphatase Troponin I High Sens 4.8 B-Natriuretic Peptide Total Protein Albumin Lipase Urine Color Urine Appearance Urine pH Ur Specific [place] Urine Protein Urine Glucose (UA) Urine Ketones Urine Blood Urine Nitrite Ur Leukocyte Esterase Urine RBC Urine WBC Ur Squamous Epith Cells Urine Bacteria Hyaline Casts Stool Occult Blood Stl C. cayetanensis PCR Stool Rotavirus A PCR Stl Adenov F 40 PCR Stool Astrovirus (PCR) Stool Campylobacter PCR Stool Cryptosporidium PCR Stl Sh Tox Pr E STEC PCR Stool E coli O157 PCR Stl Enterotoxigenic E PCR Stool EPEC (PCR) Stool EAEC (PCR) Stl E. histolytica PCR Stool Giardia Lamblia PCR Stl P. shigelloides PCR Stool Salmonella PCR Stool Sapovirus (PCR) Stl Shigella/EIEC PCR St Y.enterocolitica PCR Stool Vibrio (PCR) Stl Vibrio cholerae PCR Stl Norovirus GI/GII PCR C. difficile Tox B Gene COVID-19 ([facility]) COVID-19 Clin [facility] 01/24/23 01/24/23 01/24/23 16:15 19:13 19:13 WBC RBC Hgb Hct MCV MCH MCHC RDW Plt Count MPV Immature Gran % (Auto) Neut % (Auto) Lymph % (Auto) [place] % (Auto) Eos % (Auto) Baso % (Auto) Lymph # (Auto) [place] # (Auto) Eos # (Auto) Baso # (Auto) Abs Immat Gran (auto) Absolute Neuts (auto) Absolute Nucleated RBC Nucleated RBC % (auto) Neutrophils % (Manual) Band Neutrophils % Lymphocytes % (Manual) Monocytes % (Manual) Abs Neuts (Manual) Lymphocytes # (Manual) Monocytes # (Manual) Platelet Estimate Plt Morphology Comment RBC Morphology PT INR Sodium Potassium Chloride Carbon Dioxide Anion Gap BUN Creatinine Estim Creat Clear Calc Estimated GFR POC Glucose 91 Random Glucose Lactic Acid Calcium Magnesium Total Bilirubin Direct Bilirubin AST ALT Alkaline Phosphatase Troponin I High Sens B-Natriuretic Peptide Total Protein Albumin Lipase Urine Color Urine Appearance Urine pH Ur Specific [place] Urine Protein Urine Glucose (UA) Urine Ketones Urine Blood Urine Nitrite Ur Leukocyte Esterase Urine RBC Urine WBC Ur Squamous Epith Cells Urine Bacteria Hyaline Casts Stool Occult Blood Stl C. cayetanensis PCR Not Detected Stool Rotavirus A PCR Not Detected Stl Adenov F 40 PCR Not Detected Stool Astrovirus (PCR) Not Detected Stool Campylobacter PCR Not Detected Stool Cryptosporidium PCR Not Detected Stl Sh Tox Pr E STEC PCR Not Detected Stool E coli O157 PCR Not applicable Stl Enterotoxigenic E PCR Not Detected Stool EPEC (PCR) Not Detected Stool EAEC (PCR) Not Detected Stl E. histolytica PCR Not Detected Stool Giardia Lamblia PCR Not Detected Stl P. shigelloides PCR Not Detected Stool Salmonella PCR Not Detected Stool Sapovirus (PCR) Not Detected Stl Shigella/EIEC PCR Not Detected St Y.enterocolitica PCR Not Detected Stool Vibrio (PCR) Not Detected Stl Vibrio cholerae PCR Not Detected Stl Norovirus GI/GII PCR Not Detected C. difficile Tox B Gene NEGATIVE COVID-19 ([facility]) COVID-19 Clin Com 01/24/23 01/25/23 01/25/23 20:40 05:33 05:33 WBC 10.7 RBC 3.76 L Hgb 10.7 L Hct 33.7 L MCV 89.6 MCH 28.5 MCHC 31.8 RDW 14.2 Plt Count 294 MPV 10.9 Immature Gran % (Auto) Neut % (Auto) Lymph % (Auto) [place] % (Auto) Eos % (Auto) Baso % (Auto) Lymph # (Auto) [place] # (Auto) Eos # (Auto) Baso # (Auto) Abs Immat Gran (auto) Absolute Neuts (auto) Absolute Nucleated RBC 0.000 Nucleated RBC % (auto) 0.0 Neutrophils % (Manual) Band Neutrophils % Lymphocytes % (Manual) Monocytes % (Manual) Abs Neuts (Manual) Lymphocytes # (Manual) Monocytes # (Manual) Platelet Estimate Plt Morphology Comment RBC Morphology PT INR Sodium 143 Potassium 4.2 Chloride 118 H Carbon Dioxide 17 L Anion Gap 12 BUN 5 L Creatinine 0.74 Estim Creat Clear Calc 58.1 Estimated GFR > 60 POC Glucose 146 H Random Glucose 50 L* Lactic Acid Calcium 7.6 L Magnesium Total Bilirubin Direct Bilirubin AST ALT Alkaline Phosphatase Troponin I High Sens B-Natriuretic Peptide Total Protein Albumin Lipase Urine Color Urine Appearance Urine pH Ur Specific [place] Urine Protein Urine Glucose (UA) Urine Ketones Urine Blood Urine Nitrite Ur Leukocyte Esterase Urine RBC Urine WBC Ur Squamous Epith Cells Urine Bacteria Hyaline Casts Stool Occult Blood Stl C. cayetanensis PCR Stool Rotavirus A PCR Stl Adenov F 40/41 PCR Stool Astrovirus (PCR) Stool Campylobacter PCR Stool Cryptosporidium PCR Stl Sh Tox Pr E STEC PCR Stool E coli O157 PCR Stl Enterotoxigenic E PCR Stool EPEC (PCR) Stool EAEC (PCR) Stl E. histolytica PCR Stool Giardia Lamblia PCR Stl P. shigelloides PCR Stool Salmonella PCR Stool Sapovirus (PCR) Stl Shigella/EIEC PCR St Y.enterocolitica PCR Stool Vibrio (PCR) Stl Vibrio cholerae PCR Stl Norovirus GI/GII PCR C. difficile Tox B Gene COVID-19 ([facility]) COVID-19 Clin Com 01/25/23 01/25/23 01/25/23 07:20 07:41 08:08 WBC RBC Hgb Hct MCV MCH MCHC RDW Plt Count MPV Immature Gran % (Auto) Neut % (Auto) Lymph % (Auto) [place] % (Auto) Eos % (Auto) Baso % (Auto) Lymph # (Auto) [place] # (Auto) Eos # (Auto) Baso # (Auto) Abs Immat Gran (auto) Absolute Neuts (auto) Absolute Nucleated RBC Nucleated RBC % (auto) Neutrophils % (Manual) Band Neutrophils % Lymphocytes % (Manual) Monocytes % (Manual) Abs Neuts (Manual) Lymphocytes # (Manual) Monocytes # (Manual) Platelet Estimate Plt Morphology Comment RBC Morphology PT INR Sodium Potassium Chloride Carbon Dioxide Anion Gap BUN Creatinine Estim Creat Clear Calc Estimated GFR POC Glucose 46 L* 43 L* 219 H Random Glucose Lactic Acid Calcium Magnesium Total Bilirubin Direct Bilirubin AST ALT Alkaline Phosphatase Troponin I High Sens B-Natriuretic Peptide Total Protein Albumin Lipase Urine Color Urine Appearance Urine pH Ur Specific Gates Urine Protein Urine Glucose (UA) Urine Ketones Urine Blood Urine Nitrite Ur Leukocyte Esterase Urine RBC Urine WBC Ur Squamous Epith Cells Urine Bacteria Hyaline Casts Stool Occult Blood Stl C. cayetanensis PCR Stool Rotavirus A PCR Stl Adenov F 40/41 PCR Stool Astrovirus (PCR) Stool Campylobacter PCR Stool Cryptosporidium PCR Stl Sh Tox Pr E STEC PCR Stool E coli O157 PCR Stl Enterotoxigenic E PCR Stool EPEC (PCR) Stool EAEC (PCR) Stl E. histolytica PCR Stool Giardia Lamblia PCR Stl P. shigelloides PCR Stool Salmonella PCR Stool Sapovirus (PCR) Stl Shigella/EIEC PCR St Y.enterocolitica PCR Stool Vibrio (PCR) Stl Vibrio cholerae PCR Stl Norovirus GI/GII PCR C. difficile Tox B Gene COVID-19 ([facility]) COVID-19 Clin Com 01/25/23 01/25/23 08:23 11:07 WBC RBC Hgb Hct MCV MCH MCHC RDW Plt Count MPV Immature Gran % (Auto) Neut % (Auto) Lymph % (Auto) [place] % (Auto) Eos % (Auto) Baso % (Auto) Lymph # (Auto) [place] # (Auto) Eos # (Auto) Baso # (Auto) Abs Immat Gran (auto) Absolute Neuts (auto) Absolute Nucleated RBC Nucleated RBC % (auto) Neutrophils % (Manual) Band Neutrophils % Lymphocytes % (Manual) Monocytes % (Manual) Abs Neuts (Manual) Lymphocytes # (Manual) Monocytes # (Manual) Platelet Estimate Plt Morphology Comment RBC Morphology PT INR Sodium Potassium Chloride Carbon Dioxide Anion Gap BUN Creatinine Estim Creat Clear Calc Estimated GFR POC Glucose 94 Random Glucose 246 H Lactic Acid Calcium Magnesium Total Bilirubin Direct Bilirubin AST ALT Alkaline Phosphatase Troponin I High Sens B-Natriuretic Peptide Total Protein Albumin Lipase Urine Color Urine Appearance Urine pH Ur Specific [place] Urine Protein Urine Glucose (UA) Urine Ketones Urine Blood Urine Nitrite Ur Leukocyte Esterase Urine RBC Urine WBC Ur Squamous Epith Cells Urine Bacteria Hyaline Casts Stool Occult Blood Stl C. cayetanensis PCR Stool Rotavirus A PCR Stl Adenov F 40/41 PCR Stool Astrovirus (PCR) Stool Campylobacter PCR Stool Cryptosporidium PCR Stl Sh Tox Pr E STEC PCR Stool E coli O157 PCR Stl Enterotoxigenic E PCR Stool EPEC (PCR) Stool EAEC (PCR) Stl E. histolytica PCR Stool Giardia Lamblia PCR Stl P. shigelloides PCR Stool Salmonella PCR Stool Sapovirus (PCR) Stl Shigella/EIEC PCR St Y.enterocolitica PCR Stool Vibrio (PCR) Stl Vibrio cholerae PCR Stl Norovirus GI/GII PCR C. difficile Tox B Gene COVID-19 ([facility]) COVID-19 Clin Com Airway Mallampati Class: II (Small mouth) TM Dist: >3cm Neck ROM: Full Heart: rrr Lungs: good inspiration no wheezing Assessment and Plan Assessment Anesthesia Assessment: Anesthesia Plan Discussed and Chart Reviewed Final Anesthetic Review Family History of Problems with Anesthesia: No History of Problems with Anesthesia: No NPO: Yes ASA Class: III Final Preanesthetic Review: No Changes in Pt Med Stat, Meds/Allgs Chart Reviewed and Consent Obtained/Reviewed Patient Risk: Intermediate Procedure Risk: Intermediate Anesthetic Plan Anesthetic Plan: MAC: Disposition: Standard PACU
--- NOTE | 2023-01-25 13:52 | PM.OP ---
Brief Operative Note Date of Service: 01/25/23 Pre-op diagnosis: Abdominal pain, abnormal CT scan of the left colon Post-op diagnosis: other (LEFT-SIDED COLITIS, DIVERTICULOSIS) Procedure: FLEXIBLE SIGMOIDOSCOPY TILL 40 CMS WITH BIOPSIES Surgeon: Ruth Roman MD Anesthesia: MAC Was an Welding Systems And Equipment Repairer used for this Procedure?: Yes Welding Systems And Equipment Repairer: Mitra Beltran Estimated blood loss (mL): 1 Pathology: other (A. sigmoid bxs, R/O ischemic colitis) Condition: stable Disposition: PACU
--- NOTE | 2023-01-25 13:53 | W.PM.OPN ---
Operative Note Operative Note Date of Service: 01/25/23 Narrative: FLEXIBLE SIGMOIDOSCOPY TILL 40 CMS WITH BIOPSIES Indication:? Abdominal pain, abnormal CT scan of the left colon Endoscopist:? Ruth Roman MD Anesthesia Provider:?Dr Callahan Anesthesia type:?MAC Consent: Indications for the procedure and potential complications of bleeding, perforation, reaction to medications and missed diagnosis were discussed with the patient and informed consent was obtained. Instrument: Olympus GIF H 190 mid-size upper endoscope Monitoring: Vital signs and clinical assessment, intermittent blood pressure monitoring, continuous EKG monitoring, Pulse oximetry and Carbon Dioxide monitoring were done throughout the procedure. Please see anesthesia flowsheet. Procedure: The patient was placed in the left lateral decubitis position and pre-procedure medications were administered. After a digital rectal examination of the ano-rectum, the video colonoscope was inserted into the rectum and advanced through the colon to 40 cms into the sigmoid colon. The upper endoscope was slowly withdrawn in a retrograde panoramic fashion and the colon mucosa was carefully examined including a retroflexed view of the rectum. Findings and interventions are described below. Findings: Sigmoid Colon: Friable mucosa with erythema, edema and scattered healing ulcers from 30 to 40 cms and extending proximally - biopsies obtained to check for ischemic colitis. Moderate diverticulosis Rectum: Normal Ano-rectum: Lax anal sphincter Colon preparation: Fair Impression and Post Procedure Diagnosis: Colonoscopy Findings: Mild left sided colitis - likely related to ischemia versus infectious colitis - appears to be healing and extending proximally - biopsies obtained to check for ischemic colitis. No polyps were detected. Severe diverticulosis seen in the sigmoid colon Plan: Continue IV antibiotics x 24 hrs. Can switch to PO antibiotics in the am if pt notes continued improvement in abdominal pain I will contact patient with biopsy results. Above findings were reviewed with the patient.
[2023-01-25 15:53] LABS: Glucose, Whole Blood 86 mg/dL (60-115)
[2023-01-25] MEDS: 0.9 % Sodium Chloride Flush 3 ML SYRINGE IVFLUSH ×2 (15:58→20:11)
[2023-01-25] MEDS: cefTRIAXone sodium 1 GM in 0.9 % Sodium Chloride 50 ML IV (16:59)
[2023-01-25 20:54] LABS: Glucose, Whole Blood 145 mg/dL (60-115)
[2023-01-25] MEDS: traZODone HCL 100 MG TABLET PO (22:03)
[2023-01-25] MEDS: Famotidine 20 MG TABLET PO (22:03)
[2023-01-25] MEDS: Insulin Glargine,Hum.rec.anlog 100 UNIT/ML 10 ML VIAL 8 UNIT SUBCUT (22:03)
[2023-01-26 03:48] VITALS: BP 111/65; PULSE 78; RESP 18; TEMP 36.4; O2SAT 95
[2023-01-26] MEDS: Omeprazole 20 MG CAPSULE.DR PO (05:36)
[2023-01-26] MEDS: Morphine Sulfate 4 MG/ML CARTRIDGE IVPUSH (05:42)
[2023-01-26] MEDS: LORazepam 0.5 MG TABLET 0.25 MG PO (05:43)
[2023-01-26 06:16] LABS: Hematocrit 33.8 % (37.0-47.0); Mean Corpuscular HGB Conc 32.5 g/dl (31.0-35.0); Mean Corpuscular Hemoglobin 28.9 pg (27.0-33.0); Mean Corpuscular Volume 88.9 fL (80.0-98.0); Mean Platelet Volume 10.8 fL (9.4-12.3); Platelet Count 267 X10*3/uL (160-400); Red Cell Distribution Width 14.1 % (11.0-16.0); White Blood Count 8.5 X10*3/uL (4.8-10.8)
[2023-01-26 06:40] LABS: Anion Gap 10 (12-20); Blood Urea Nitrogen 4 mg/dL (9-16); Calcium 8.1 mg/dL (8.4-10.2); Carbon Dioxide 25 mmol/L (22-29); Chloride 112 mmol/L (96-108); Creatinine Clr Calc Pharmacy 60.5; Estimated Glomerular Filt Rate > 60; Glucose Random 157 mg/dL (60-115); Sodium 143 mmol/L (135-145)
[2023-01-26 06:53] VITALS: BP 114/64; PULSE 75; RESP 18; TEMP 36.6; O2SAT 96
[2023-01-26 07:18] LABS: Glucose, Whole Blood 157 mg/dL (60-115)
[2023-01-26] MEDS: Butalb/Acetamin/Caff 50/325/40 TABLET 1 TAB PO (09:06)
[2023-01-26] MEDS: predniSONE 5 MG TABLET PO (09:07)
[2023-01-26] MEDS: Losartan Potassium 25 MG TABLET PO (09:07)
[2023-01-26] MEDS: sulfaSALAzine 500 MG TABLET PO (09:07)
[2023-01-26] MEDS: Metoprolol Tartrate 12.5 MG HALFTAB PO (09:07)
[2023-01-26] MEDS: Atorvastatin Calcium 80 MG TABLET PO (09:07)
[2023-01-26] MEDS: Pregabalin 200 MG CAPSULE PO (09:07)
[2023-01-26] MEDS: lamoTRIgine 25 MG TABLET PO (09:07)
[2023-01-26] MEDS: 0.9 % Sodium Chloride Flush 3 ML SYRINGE IVFLUSH (09:10)
--- NOTE | 2023-01-26 10:17 | MHC.CM.PN ---
PLAN IS HOME - SELF CARE TODAY ACCORDING TO PATIENT PREVIOUS CONVERSATION WITH CM, SHE IS ABLE TO WALK HOME
[2023-01-26 11:07] LABS: Glucose, Whole Blood 178 mg/dL (60-115)
--- NOTE | 2023-01-26 11:13 | P.DS_ITS ---
DS: Providers Provider Date of Service: 01/26/23 Date of admission: 01/23/23 15:24 Primary care physician: Adela Wasserman MD Consults: 01/23/23 15:27 Consult to Gastroenterology Routine Consulting Provider: Ruth Roman Reason for consultation: Colitis 01/24/23 06:39 Consult to Cardiology Routine Consulting Provider: [facility] [place] Cardi[facility] Services Reason for consultation: chest pain DS: Diagnosis Discharge Diagnosis (1) Colitis: Status: Acute (2) GERD (gastroesophageal reflux disease): Status: Acute (3) Acute exacerbation of chronic obstructive pulmonary disease (COPD): Status: Acute (4) Colitis: Status: Acute DS: Summary Hospital Course Hospital Course: Admission note HPI Pt is a 62-year-old female with a PMH significant for?HTN, HDL, CAD s/p PCI, insulin-dependent diabetes, PAD, asthma, COPD, steroid-dependent rheumatoid arthritis, fibromyalgia, and bipolar depression who presents to the ED with?with abdominal pain and bloody diarrhea x1 day.? Patient states that she was awoke from sleep at 04:00 this morning with severe, diffuse abdominal pain.? Patient went to the bathroom where she had profuse, bright red bloody diarrhea and was also nauseous and vomiting at the same time.? Denies hematemesis. Patient describes the pain as sharp, diffuse, radiating to her back.? The patient states that her stool has been dark colored for the past week.? Patient also complains of chronic shortness of breath, dyspnea with exertion, and nonproductive cough, worse this morning with associated chest tightness.? Patient has been using her Brilinta every 3 hours to little effect.? Patient has had chills, but denies fever.? No headache, lightheadedness, dizziness. In the ED patient was afebrile, tachycardic at 139, satting at 96% on RA. Labs were significant for leukocytosis 20.5, otherwise unremarkable. H&H stable at 14.9/45.4. Stool positive for occult blood.? UA positive for leukocyte esterase and WBC. CXR showed no acute disease. CT?of abdomen and pelvis found E Demadex change in the colon, suggestive of colitis, infectious versus noninfectious etiology. EKG demonstrated sinus tachycardia of 120 with no evidence of ST elevations or depressions. Pt was treated with DuoNebs, ondansetron, morphine, IVF, Solu-Medrol, Zosyn, and Mag sulfate. Pt will be admitted to the hospital for treatment and further evaluation colitis and acute COPD exacerbation. Hospital course The patient was admitted to the hospital for evaluation of abdominal pain secondary to acute colitis as shown CT scan of the abdomen with transfers and descending colon inflammation suggestive of possible colitis of infection was versus noninfectious origin. Treated with IV fluid, ceftriaxone and Flagyl with good response over the course of hospital stay as the pain, nausea and vomiting improved and the patient was able to tolerate diet with was advanced during the hospital stay to regular. Tested negative for C diff. developed blood with stool that resolved with treatment and holding antiplatelets. A colonoscopy was done showing some friability and concern over possible ischemic origin for the colitis. Biopsies will be discussed by tufting machine fixer once available. She was treated for acute COPD exacerbation with steroids and nebulizers with good response as she was weaned of to room air. Complain of chest pain with no acute EEG changes and negative troponin that was evaluated by perfect bind machine operator as an echo showed normal EF. Cardiology believed it is noncardiac pain related likely to her colitis. Continue antibiotics as prescribed To follow-up with gastroenterology for biopsy results Advance her diet slowly at home Use Zofran as needed for nausea Use Imodium as needed for diarrhea Come back to the hospital for any worsening abdominal pain or fever. Time Spent with Patient Time attestation: Total time managing care of this patient today ____ minutes. Discharge coordination time: Greater than 30 minutes Quality: Safe Use of Opioids Does Pt have an Active Cancer Diagnosis on the Problem List?: No Quality: Stroke Does the patient have a stroke diagnosis?: No Physical Exam Vital Signs: Vital Signs: Last Vital Signs Temp 98 F 01/26/23 06:53 Pulse 75 01/26/23 06:53 Resp 18 01/26/23 06:53 BP 114/64 01/26/23 06:53 Pulse Ox 96 01/26/23 06:53 O2 Del Method 01/26/23 06:53 O2 Flow Rate 6 01/25/23 14:27 BMI result Body Mass Index 24.1 Const: Other: Constitutional : Awake, interactive, not in distress Neck : Normal inspection, Supple Cardiovascular : RRR, no JVP, no lower extremity edema Respiratory : good bilateral air entry, no crackles, wheezes or rhonchi Gastrointestinal: soft, lax, Normal bowel sounds, no tenderness, no surgical signs Skin : Warm, Dry Neurological : Alert & oriented x3, No focal deficit , DS: Data Data Completed and Pending Pending studies at discharge: Pending at discharge 01/25/23 14:05 Surgical [PTH] Routine Labs on day of discharge: Laboratory Results - last 24 hr 01/24/23 01/25/23 01/25/23 19:13 11:07 15:49 WBC RBC Hgb Hct MCV MCH MCHC RDW Plt Count MPV Absolute Nucleated RBC Nucleated RBC % (auto) Sodium Potassium Chloride Carbon Dioxide Anion Gap BUN Creatinine Estim Creat Clear Calc Estimated GFR POC Glucose 94 86 Random Glucose Calcium Stl C. cayetanensis PCR Not Detected Stool Rotavirus A PCR Not Detected Stl Adenov F 40/41 PCR Not Detected Stool Astrovirus (PCR) Not Detected Stool Campylobacter PCR Not Detected Stool Cryptosporidium PCR Not Detected Stl Sh Tox Pr E STEC PCR Not Detected Stool E coli O157 PCR Not applicable Stl Enterotoxigenic E PCR Not Detected Stool EPEC (PCR) Not Detected Stool EAEC (PCR) Not Detected Stl E. histolytica PCR Not Detected Stool Giardia Lamblia PCR Not Detected Stl P. shigelloides PCR Not Detected Stool Salmonella PCR Not Detected Stool Sapovirus (PCR) Not Detected Stl Shigella/EIEC PCR Not Detected St Y.enterocolitica PCR Not Detected Stool Vibrio (PCR) Not Detected Stl Vibrio cholerae PCR Not Detected Stl Norovirus GI/GII PCR Not Detected 01/25/23 01/26/23 01/26/23 20:42 05:46 05:46 WBC 8.5 RBC 3.80 L Hgb 11.0 L Hct 33.8 L MCV 88.9 MCH 28.9 MCHC 32.5 RDW 14.1 Plt Count 267 MPV 10.8 Absolute Nucleated RBC 0.000 Nucleated RBC % (auto) 0.0 Sodium 143 Potassium 4.0 Chloride 112 H Carbon Dioxide 25 Anion Gap 10 L BUN 4 L Creatinine 0.71 Estim Creat Clear Calc 60.5 Estimated GFR > 60 POC Glucose 145 H Random Glucose 157 H Calcium 8.1 L D Stl C. cayetanensis PCR Stool Rotavirus A PCR Stl Adenov F 40/41 PCR Stool Astrovirus (PCR) Stool Campylobacter PCR Stool Cryptosporidium PCR Stl Sh Tox Pr E STEC PCR Stool E coli O157 PCR Stl Enterotoxigenic E PCR Stool EPEC (PCR) Stool EAEC (PCR) Stl E. histolytica PCR Stool Giardia Lamblia PCR Stl P. shigelloides PCR Stool Salmonella PCR Stool Sapovirus (PCR) Stl Shigella/EIEC PCR St Y.enterocolitica PCR Stool Vibrio (PCR) Stl Vibrio cholerae PCR Stl Norovirus GI/GII PCR 01/26/23 01/26/23 06:53 11:02 WBC RBC Hgb Hct MCV MCH MCHC RDW Plt Count MPV Absolute Nucleated RBC Nucleated RBC % (auto) Sodium Potassium Chloride Carbon Dioxide Anion Gap BUN Creatinine Estim Creat Clear Calc Estimated GFR POC Glucose 157 H 178 H Random Glucose Calcium Stl C. cayetanensis PCR Stool Rotavirus A PCR Stl Adenov F 40/41 PCR Stool Astrovirus (PCR) Stool Campylobacter PCR Stool Cryptosporidium PCR Stl Sh Tox Pr E STEC PCR Stool E coli O157 PCR Stl Enterotoxigenic E PCR Stool EPEC (PCR) Stool EAEC (PCR) Stl E. histolytica PCR Stool Giardia Lamblia PCR Stl P. shigelloides PCR Stool Salmonella PCR Stool Sapovirus (PCR) Stl Shigella/EIEC PCR St Y.enterocolitica PCR Stool Vibrio (PCR) Stl Vibrio cholerae PCR Stl Norovirus GI/GII PCR Preliminary micro results at discharge 01/23/23 11:43 Blood Culture - Preliminary Blood - Venous No growth after 48 hours. 01/23/23 11:21 Blood Culture - Preliminary Blood - Venous No growth after [address] scan - abdomen: Radiologist's impression: ITS Impressions Chest X-Ray 01/23/23 10:40 IMPRESSION: No acute disease. Abdomen/Pelvis CT 01/23/23 11:30 IMPRESSION: This exam is abnormal. There is felt to be edematous change most noted from the mid transverse colon through the rectosigmoid. Colitis is favored infectious versus noninfectious etiology. Other findings are as noted above. Fleischner guidelines were followed. Discharge Plan Discharge Anticipated Discharge Date/Time: 01/26/23 11:02 Patient Disposition: Home, Self-Care Discharge Diagnosis: Acute colitis Referrals: Adela Gipson MD [Primary Care Provider] - 1 Week Discharge Medications: New metronidazole 500 mg Tablet 500 mg PO Q8H 5 Days Qty: 15 0RF cefuroxime axetil 500 mg tablet 500 mg PO BID Qty: 10 0RF loperamide 2 mg capsule 2 mg PO Q6H PRN (Reason: loose stool) Qty: 20 0RF ondansetron 4 mg tablet,disintegrating 4 mg PO Q8H PRN (Reason: nausea and vomiting) Qty: 14 0RF Continued (DME) pen needle, diabetic [Comfort EZ Pen [place]] 31 gauge x 5/16 needle See Rx Instructions .ROUTE .MEDSUPPLY Qty: 200 11RF Rx Instructions: Use 1 pen needle 6 times a day (DME) lancets [FreeStyle Lancets] 28 gauge misc See Rx Instructions .Route Qty: 100 3RF Rx Instructions: Use 1 lancet once a day insulin aspart U-100 [Novolog FlexPen U-100 Insulin] 100 unit/mL (3 mL) ins ulin pen 2 - 10 unit subcut TIDAC 30 Days Qty: 15 11RF Protocol: Insulin Correction Scale Less than or equal to 110 ---- Give (units): 0 111 to 150 Give (units): 0 151 to 200 Give (units): 2 201 to 250 Give (units): 4 251 to 300 Give (units): 6 301 to 350 Give (units): 8 Greater than 350 Give (units): 10 Call MD if Blood Glucose > : 350 Rx Instructions: Via sliding scale losartan 25 mg tablet 25 mg PO DAILY Qty: 90 0RF pantoprazole 40 mg tablet,delayed release (DR/EC) 40 mg PO BID 90 Days Qty: 180 0RF aspirin 81 mg tablet,delayed release (DR/EC) 81 mg PO DAILY 90 Days Qty: 90 1RF albuterol sulfate [Ventolin HFA] 90 mcg/actuation HFA aerosol inhaler 1 inh inhalation QID PRN (Reason: shortness of breath or wheezing) 30 Days Qty: 18 2RF lamotrigine 25 mg tablet 25 mg PO BID 90 Days Qty: 180 1RF trazodone 100 mg tablet 100 mg PO BEDTIME 90 Days Qty: 90 0RF sulfasalazine 500 mg tablet 0.5 g PO BID Qty: 60 1RF budesonide 0.5 mg/2 mL suspension for nebulization 0.25 mg inhalation BID 30 Days Qty: 60 3RF (DME) FreeStyle Lite Strips Strip MISCELLANEOUS DAILY Qty: 100 1RF Rx Instructions: Use 1 test strip three times a day prednisone 5 mg tablet 5 mg PO DAILY Qty: 30 1RF ondansetron 4 mg tablet,disintegrating 4 mg PO Q8H PRN (Reason: nausea and vomiting) Qty: 14 0RF metoprolol tartrate 25 mg tablet 0.5 tab PO BID Trulicity 1.5 mg/0.5 mL pen injector 1.5 mg subcut WE@0900 ipratropium-albuterol 0.5 mg-3 mg(2.5 mg base)/3 mL Solution For Nebulization 3 ml inhalation RQ4H WHILE AWAKE Qty: 180 0RF nitroglycerin 0.4 mg tablet, sublingual 0.4 mg sublingual Q5M PRN (Reason: Chest Pain) atorvastatin 80 mg tablet 80 mg PO DAILY 90 Days Qty: 90 1RF Rx Instructions: patient lost recent RX, please fill this as emergency RX this one time Brilinta 90 mg tablet 90 mg PO BID 90 Days Qty: 180 1RF Rx Instructions: Please fill Rx today, patient lost previous RX, fill as emergency this one time insulin degludec [Tresiba FlexTouch U-100] 100 unit/mL (3 mL) insulin pen 20 unit subcut BEDTIME 90 Days Qty: 18 1RF lubiprostone [Amitiza] 8 mcg capsule 8 mcg PO BID 90 Days Qty: 180 1RF famotidine 20 mg tablet 20 mg PO BEDTIME 90 Days Qty: 90 1RF pregabalin [Lyrica] 200 mg capsule 200 mg PO BID Qty: 60 3RF Discharge Orders: Discharge Order (Routine); Ordered 01/26/23 Ordered By: Yayo Cosme Diet: Advance to usual diet Activity on Discharge: As tolerated Stand Alone Forms: Patient Portal Discharge page Care Plan Goals: Read below Health Concerns: Read below Plan of Treatment: Read below Assessment: You were admitted to the hospital for evaluation of abdominal pain. Found to have an evidence of hollow on inflammation. Evaluated by tufting machine fixer and treated with IV antibiotics with good response over the course of hospital stay. Colonoscopy was done showing concern of possible blood supply problem to your colon. Continue antibiotics as prescribed To follow-up with gastroenterology for biopsy results Advance her diet slowly at home Use Zofran as needed for nausea Use Imodium as needed for diarrhea Come back to the hospital for any worsening abdominal pain or fever.
--- NOTE | 2023-01-26 19:32 | HO.POSTANES ---
Post Anesthesia Evaluation Post Anesthesia Evaluation Anesthesia: Monitored Mental Status: Awake Pain Control: Satisfactory Nausea/Vomiting: None Hydration: Adequate Anesthesia-Related Issues: No Anes. Related Issues
== END 2023-01-26 11:58 | disposition home or self-care (01) | DRG 393 ==
LOC: HO.ED 13:08 → HO.EDOVER 15:40 → HO.S3 15:41
PROVIDERS: Hospitalist; Internal Medicine Gastroenterology; Physician Assistant; Admitting Provider Student in an Organized Health Care Education/Training Program; Emergency Provider Emergency Medicine Emergency Medical Services; PCP Internal Medicine; Visit Provider Student in an Organized Health Care Education/Training Program
PROC: 0DJD8ZZ Inspection of Lower Intestinal Tract, Via Natural or Artificial Opening Endoscopic (ICD-10-PCS; CPT 45330; principal; 2023-01-25 13:20)
DX: K55.9 Vascular disorder of intestine, unspecified (principal); K57.31 Diverticulosis of large intestine without perforation or abscess with bleeding; J44.1 Chronic obstructive pulmonary disease with (acute) exacerbation; J45.21 Mild intermittent asthma with (acute) exacerbation; F41.9 Anxiety disorder, unspecified; I25.10 Atherosclerotic heart disease of native coronary artery without angina pectoris; E78.5 Hyperlipidemia, unspecified; E03.9 Hypothyroidism, unspecified; M05.9 Rheumatoid arthritis with rheumatoid factor, unspecified; F17.210 Nicotine dependence, cigarettes, uncomplicated; E11.51 Type 2 diabetes mellitus with diabetic peripheral angiopathy without gangrene; M79.7 Fibromyalgia; K21.9 Gastro-esophageal reflux disease without esophagitis; F31.9 Bipolar disorder, unspecified; Z20.822 Contact with and (suspected) exposure to COVID-19; Z71.6 Tobacco abuse counseling; Z86.73 Personal history of transient ischemic attack (TIA), and cerebral infarction without residual deficits; Z88.6 Allergy status to analgesic agent; Z88.8 Allergy status to other drugs, medicaments and biological substances; Z79.4 Long term (current) use of insulin; Z79.52 Long term (current) use of systemic steroids; Z79.82 Long term (current) use of aspirin; Z79.899 Other long term (current) drug therapy
CPT/HCPCS: 36415; 71045; 74177; 80048; 80076; 81001; 82272; 82947; 83605; 83690; 83735; 83880; 84484; 85007; 85027; 85610; 87040; 87086; 87493; 87507; 87635; 88305; 93005; 93306; 93356; 94640; 96361; 96365; 96366; 96375; 99285; J0696; J1170; J2270; J2370; J2405; J2543; J2930; J3475; Q9957; Q9967

== ENCOUNTER 2023-01-31 07:30 | Outpatient (REF) | payer MEDICARE, MEDICAID, SELFPAY ==
[2022-09-19 10:26] VITALS: BP 100/64; BP 102/48; BP 110/70; BMI 25.5
[2023-01-31 08:35] LABS: Alanine Aminotransferase 18 U/L (0-31); Albumin Level 3.7 g/dL (3.5-5.0); Alkaline Phosphatase 53 U/L (39-117); Anion Gap 15 (12-20); Aspartate Amino Transferase 15 U/L (5-31); Bilirubin Total 0.3 mg/dL (0.0-1.0); Blood Urea Nitrogen 7 mg/dL (9-16); Calcium 9.1 mg/dL (8.4-10.2); Carbon Dioxide 25 mmol/L (22-29); Chloride 110 mmol/L (96-108); Cholesterol 156 mg/dL; Estimated Glomerular Filt Rate > 60; Glucose Fasting 122 mg/dL (60-99); HDL Cholesterol 37 mg/dL; LDL Cholesterol Calculated 66 mg/dl; Potassium 4.5 mmol/L (3.3-5.1); Sodium 145 mmol/L (135-145); Total Protein 6.2 g/dL (6.5-8.0); Triglycerides 265 mg/dL
== END 2023-01-31 07:31 | disposition home or self-care (01) ==
LOC: HO.LAB 07:30
PROVIDERS: PCP Internal Medicine; Visit Provider Internal Medicine
DX: E78.5 Hyperlipidemia, unspecified (principal); I25.10 Atherosclerotic heart disease of native coronary artery without angina pectoris
CPT/HCPCS: 36415; 80053; 80061

== ENCOUNTER 2023-02-01 08:28 | Emergency (ER) | payer MEDICARE, MEDICAID, SELFPAY ==
[2022-09-19 10:26] VITALS: BP 100/64; BP 102/48; BP 110/70; BMI 25.5
--- NOTE | ~2023-02-01 | CT_ITS ---
EXAMINATION: CT ABDOMEN AND PELVIS WITH CONTRAST CLINICAL INFORMATION: Inflammatory/ischemic colitis. COMPARISON: CT abdomen and pelvis 01/23/2023. TECHNIQUE: Multidetector volumetric images were obtained from the superior aspect of the liver through the pubic symphysis following administration 85 mL of Omnipaque 350 intravenous contrast. Sagittal and coronal reformatted images were obtained on the technologist's workstation. Oral contrast: No This CT examination was performed using dose optimization techniques as appropriate, variously including the following: *Automated exposure control *Adjustment of mA and/or kV according to patient size (this includes techniques or standardized protocols for targeted exams where dose is matched to indication/reason for exam; i.e. extremities or head) *Use of iterative reconstruction technique DLP: 351 mGy-cm FINDINGS: LUNG BASES: There is platelike atelectasis right middle lobe and lingula. Heart size is normal. LIVER, GALLBLADDER, AND BILIARY TREE: The liver is normal in size, shape, and attenuation. No focal hepatic lesion or biliary ductal dilatation is present. The gallbladder is unremarkable with no evidence of radiopaque gallstones, gallbladder wall thickening, or obvious pericholecystic inflammatory changes. PANCREAS: Normal] ] Thickening. SPLEEN: Unremarkable. ADRENAL GLANDS: Unremarkable. KIDNEYS AND URETERS: The kidneys are normal in size, shape, and attenuation. No hydronephrosis, hydroureter, or calculi seen. No perinephric stranding. BLADDER: Unremarkable. GASTROINTESTINAL TRACT: There is scattered stool, diverticula and gas seen throughout the colon without distention. There is no colonic mural thickening seen at this time. Previously seen mural thickening along the descending and transverse colon has resolved. There is no diverticulitis. The small bowel loops are normal caliber. Appendix is normal caliber. No free air, inflammatory process or free fluid. ABDOMINAL WALL: Small umbilical hernia containing fat is noted. LYMPH NODES: Normal. VASCULAR: There is atherosclerotic calcification of abdominal aorta and bilateral common iliac vessels. No aneurysmal dilatation seen. PELVIC VISCERA: Unremarkable. OSSEOUS STRUCTURES: No aggressive lytic or sclerotic process seen. CT/CT abdomen pelvis w IV con IMPRESSION: 1. Colonic diverticulosis without diverticulitis. Previously seen mural thickening along the descending and transverse colon has resolved. 2. No acute intra-abdominal process seen. Fleischner guidelines were followed.
--- NOTE | 2023-02-01 08:39 | ED_ITS ---
HPI - Abdominal Pain General Chief Complaint: Abdominal Pain Stated Complaint: abd pain, black stool, dizzy Time Seen by Provider: 02/01/23 08:37 Source: patient Mode of arrival: ambulatory Limitations: no limitations History of Present Illness HPI narrative: Patient was admitted for colitis, on Saturday had a colonoscopy which showed ischemic colitis. Patient sent to the ED for abdominal pain and elevated BP from GI clinic. MD elicited complaint: abdominal pain Pertinent past history: other (ischemic colitis) Related Data Home Medications Medication Instructions Recorded Confirmed nitroglycerin 0.4 mg sublingual 0.4 mg sublingual Q5M PRN Chest 01/03/22 02/01/23 tablet Pain dulaglutide 1.5 mg/0.5 mL 1.5 mg subcut WE@0900 11/08/22 02/01/23 [facility] metoprolol tartrate 25 mg tablet 0.5 tab PO BID 11/08/22 02/01/23 Previous Rx's Medication Instructions Recorded atorvastatin 80 mg tablet 80 mg PO DAILY 90 days #90 tabs 02/06/22 ticagrelor 90 mg tablet (Brilinta) 90 mg PO BID 90 days #180 tabs 02/06/22 lancets 28 gauge (FreeStyle #100 ea 06/07/22 Lancets) pen needle, diabetic 31 gauge x #200 ea 06/07/2204/02 (Comfort EZ Pen [place]) ondansetron 4 mg disintegrating 4 mg PO Q8H PRN nausea and 06/29/22 tablet vomiting #14 tabs Novolog FlexPen U-100 Insulin 100 2 - 10 unit subcut TIDAC 30 days 08/28/22 unit/mL (3 mL) subcutaneous #15 mL (insulin aspart U-100) losartan 25 mg tablet 25 mg PO DAILY #90 tabs 09/07/22 pantoprazole 40 mg tablet,delayed 40 mg PO BID 90 days #180 tabs 10/18/22 release insulin degludec 100 unit/mL (3 20 unit (0.2 mL) subcut BEDTIME 90 11/07/22 mL) subcutaneous pen (Tresiba days #18 mL FlexTouch U-100 insulin) ipratropium 0.5 mg-albuterol 3 mg 3 ml inhalation RQ4H WHILE AWAKE 11/13/22 (2.5 mg base)/3 mL nebulization #180 mL soln aspirin 81 mg tablet,delayed 81 mg PO DAILY 90 days #90 tabs 11/25/22 release Ventolin HFA 90 mcg/actuation 1 inh inhalation QID PRN shortness 12/14/22 aerosol inhaler (albuterol sulfate) of breath or wheezing 30 days #18 grams lamotrigine 25 mg tablet 25 mg PO BID 90 days #180 tabs 12/18/22 trazodone 100 mg tablet 100 mg PO BEDTIME 90 days #90 tabs 12/18/22 sulfasalazine 500 mg tablet 0.5 g PO BID #60 tabs 12/25/22 pregabalin 200 mg capsule (Lyrica) 200 mg PO BID #60 caps 01/02/23 budesonide 0.5 mg/2 mL suspension 0.25 mg inhalation BID ASTHMA/COPD 01/04/23 for nebulization 30 days #60 mL famotidine 20 mg tablet 20 mg PO BEDTIME 90 days #90 tabs 01/10/23 lubiprostone 8 mcg capsule 8 mcg PO BID 90 days #180 caps 01/10/23 (Amitiza) blood sugar diagnostic (FreeStyle #100 ea 01/20/23 Lite Strips) prednisone 5 mg tablet 5 mg PO DAILY for asthma #30 tabs 01/22/23 cefuroxime axetil 500 mg tablet 500 mg PO BID #10 tabs 01/26/23 loperamide 2 mg capsule 2 mg PO Q6H PRN loose stool #20 01/26/23 caps metronidazole 500 mg tablet 500 mg PO Q8H 5 days #15 tabs 01/26/23 ondansetron 4 mg disintegrating 4 mg PO Q8H PRN nausea and 01/26/23 tablet vomiting #14 tabs Allergies Allergy/AdvReac Type Severity Reaction Status Date / Time dog dander [DOGS] Allergy Intermediate Respiratory Verified 01/28/23 11:11 distress ibuprofen [Ibuprofen] Allergy Intermediate STOMACH Verified 01/28/23 11:11 UPSET, abdominal pain, nausea and vomiting shellfish derived Allergy Intermediate Hives Verified 01/28/23 11:11 etanercept [From Enbrel] AdvReac Intermediate Facial Verified 01/28/23 11:11 Swelling metformin AdvReac Intermediate diarrhea Verified 01/28/23 11:11 metronidazole [From FLAGYL] AdvReac Intermediate DIARRHEA Verified 01/28/23 11:11 prednisone AdvReac Intermediate hallucinations, Verified 01/28/23 11:11 higher than 20 methylprednisolone AdvReac Rash Verified 01/28/23 11:11 [facility] Past Medical History Medical History (Updated 02/01/23 @ 11:22 by Haroldo Reich MD) Allergic rhinitis Anxiety Atherosclerotic cardiovascular disease Bipolar 1 disorder, depressed Bloody diarrhea Breast pain, right Bronchial asthma Colitis COPD (chronic obstructive pulmonary disease) COPD exacerbation Cough CVA (cerebral vascular accident) Depression Diabetes type 2, uncontrolled Dyslipidemia Fibromyalgia HLD (hyperlipidemia) Hospital discharge follow-up HTN (hypertension) Hyperkalemia Hyperlipidemia LDL goal <100 Hyperparathyroidism Hypertension Hypothyroid IDDM (insulin dependent diabetes mellitus) Infiltrating ductal carcinoma of left breast, stage 2 Insomnia Irritable bowel Osteoporosis PAD (peripheral artery disease) Rash Reactive airways dysfunction syndrome Restrictive airway disease Seropositive rheumatoid arthritis T2DM (type 2 diabetes mellitus) Thyroid nodule Vitamin D deficiency Surgical History H/O cardiac catheterization H/O: hysterectomy History of bronchoscopy History of bunionectomy of both great toes History of colonoscopy History of esophagogastroduodenoscopy (EGD) History of lumpectomy of left breast History of pubovaginal sling History of tubal ligation Hx of endoscopy Hx of sigmoidoscopy Family History Family History Mother Diabetes HTN (hypertension) Uterus cancer Malignant tumor of head Breast cancer Father Diabetes HTN (hypertension) CVD (cardiovascular disease) Heart problem Maternal Aunt Breast cancer Brother Myocardial infarction S/P CABG x 4 Family/Other FH: mental illness Family/Other Lung cancer Other Mental health disorder Social History Social History Household Members: Family Household Members Other:: sister Housing: House Are you a primary animal care specialist to a significant other at home: No Do you presently have visiting nurse or other home services: Yes (sister is molding and trim installer) Alcohol intake: never Patient Tobacco Use Status: Current everyday Tobacco user Tobacco use type: Cigarette Cigarettes Per Day: 3 Years Smoked: 50 +/- e-Cigarette/Vaping Use: Never Used Second Hand Smoke Exposure: No Advance Directives: Yes Advance Directives on File: Yes Advance Directives Date on File: 12/22/21 service: No Current occupational status: disabled Current occupation: rt handed Cognitive needs: No Hearing needs: No Vision needs: Yes Physical Exam ED Vital Signs: Vital Signs - 24 hr 02/01/23 08:44 Temperature 98.2 F Pulse Rate 105 H Respiratory Rate 16 Blood Pressure 170/90 H Pulse Oximetry 99 Oxygen Delivery Method Room Air BMI result Body Mass Index 18.8 Const General: healthy appearing Nutritional Appearance: average body habitus Orientation/consciousness: oriented to person and patient oriented x3 Limitations: no limitations HENMT Head: Yes normal to inspection Ears: external ears normal General nose exam: Normal external nose present Mouth: Normal oral and palatal mucosa present and oropharynx normal Throat: Yes posterior oropharynx normal Eyes General: appearance normal, both eyes and all related structures Neck Neck: Yes normal visual inspection Chest Chest palpation & inspection: normal inspection of the chest Resp Auscultation: clear to auscultation bilaterally Cardio Jugular venous distension: no JVD Rate: regular rate Rhythm: regular rhythm Heart sounds: S1 normal heart sound present and S2 normal heart sound present GI Other: mild diffuse tenderness Palpation (GI): Soft to palpation and No hepatosplenomegaly present Auscultation: normal bowel sounds General: Yes no CVA tenderness Back/Spine/Pelvis Back: no CVA tenderness Skin General skin exam: no rashes or lesions noted Neuro General: oriented to person and patient oriented x3 Cranial nerves: Yes CN's II-XII intact bilaterally Motor exam (neuro): 5/5 motor strength present throughout Extrem General: Yes normal to inspection Psych Appearance: grossly normal Course Reevaluation(s) Reevaluation #1: rectal heme negative, HcT nml, CT scan no thickening of mural wall Time: 11:17 Medical Decision Making Differential Diagnosis Differential Diagnoses: The differential diagnosis associated with the presentation includes (colitis, ischemic colitis, lower gi bleed) Admission/Observation Consideration of admission/observation: Escalation of care including admission/observation considered (In this patient with ischemic colitis who was just admitted, admission was considered) Consult Healthcare Provider Management of the patient was discussed with: Dehairing Machine Tender (GI: Dr. Roman) Lab Data MDM Lab Attestation statement: I reviewed the patient's lab results. 02/01/23 08:51 02/01/23 08:51 Labs: Lab Results 02/01/23 02/01/23 02/01/23 Range/Units 08:51 08:51 10:34 WBC 8.5 (4.8-10.8) X10*3/uL RBC 4.50 (4.20-5.50) X10*6/uL Hgb 12.7 (12.0-16.0) g/dl Hct 39.1 (37.0-47.0) % MCV 86.9 (80.0-98.0) fL MCH 28.2 (27.0-33.0) pg MCHC 32.5 (31.0-35.0) g/dl RDW 13.8 (11.0-16.0) % Plt Count 321 (160-400) X10*3/uL MPV 10.2 (9.4-12.3) fL Immature Gran % (Auto) 0.4 (0.0-0.4) % Neut % (Auto) 61.9 (45-73) % Lymph % (Auto) 29.5 (20-40) % [place] % (Auto) 7.1 (2-11) % Eos % (Auto) 0.9 (0-4) % Baso % (Auto) 0.2 (0-2) % Lymph # (Auto) 2.5 (1.2-4.9) X10*3/uL [place] # (Auto) 0.6 (0.1-1.2) X10*3/uL Eos # (Auto) 0.1 (0.0-0.4) X10*3/uL Baso # (Auto) 0.0 (0.0-0.2) X10*3/uL Abs Immat Gran (auto) 0.03 (0.00-0.03) X10*3/uL Absolute Neuts (auto) 5.2 (2.0-8.3) x10*3/uL Absolute Nucleated RBC 0.000 (0.0-0.012) X10*3/uL Nucleated RBC % (auto) 0.0 (0.0-0.2) /100WBC Sodium 139 (135-145) mmol/L Potassium 4.6 (3.3-5.1) mmol/L Chloride 108 (96-108) mmol/L Carbon Dioxide 22 (22-29) mmol/L Anion Gap 14 (12-20) BUN 7 L (9-16) mg/dL Creatinine 0.78 (0.5-1.4) mg/dL Estim Creat Clear Calc 64.2 Estimated GFR > 60 Random Glucose 199 H (60-115) mg/dL Calcium 8.7 (8.4-10.2) mg/dL Total Bilirubin 0.3 (0.0-1.0) mg/dL Direct Bilirubin < 0.2 (0.0-0.5) mg/dL AST 19 (5-31) U/L ALT 17 (0-31) U/L Alkaline Phosphatase 57 (39-117) U/L Total Protein 6.5 (6.5-8.0) g/dL Albumin 3.7 (3.5-5.0) g/dL Lipase 25 (8-78) U/L COVID-19 ([facility]) Negative (Negative) COVID-19 Clin Com See Note Radiology Impression Discussion of test interpretation with radiology: I have reviewed the radiologist's reading. (no evidence of mural thickening or bleed) Chronic Conditions Patient?s care impacted by: Diabetes and Hypertension Medications Administered Discontinued Medications Generic Name Dose Route Start Last Admin Trade Name Freq PRN Reason Stop Dose Admin Belladonna Alkaloids/Phenobarbital 10 ml 02/01/23 10:05 02/01/23 10:15 Phenobarb/Hyoscy/Atropine/Scop 10 Ml Elixir PO 02/01/23 10:06 10 ml ONCE ONE Administration Sodium Chloride 1,000 mls @ 999 mls/hr 02/01/23 09:00 02/01/23 11:14 Ns IVCONT 02/01/23 11:00 Infused .Q1H1M ELDER Infusion Iohexol 85 ml 02/01/23 10:14 02/01/23 10:15 Iohexol 350 Mg/Ml 100 Ml Infus..Btl IV 02/01/23 10:15 85 ml ONCE ONE Administration Ondansetron HCl 4 mg 02/01/23 08:50 02/01/23 09:05 Ondansetron Hcl 4 Mg/2 Ml Vial IVPUSH 02/01/23 08:51 4 mg ONCE ONE Administration Pantoprazole Sodium 40 mg 02/01/23 08:47 02/01/23 09:05 Pantoprazole Sodium 40 Mg/10 Ml Vial IVPUSH 02/01/23 08:48 40 mg ONCE ONE Administration Discharge Plan Discharge Clinical Impression: Abdominal pain, Black stool Patient Disposition: Home, Self-Care Instructions: Abdominal Pain (ED) Prescriptions: No Action (DME) pen needle, diabetic [Comfort EZ Pen [place]] 31 gauge x 5/16 needle See Rx Instructions .ROUTE .MEDSUPPLY Qty: 200 11RF Rx Instructions: Use 1 pen needle 6 times a day (DME) lancets [FreeStyle Lancets] 28 gauge misc See Rx Instructions .Route Qty: 100 3RF Rx Instructions: Use 1 lancet once a day insulin aspart U-100 [Novolog FlexPen U-100 Insulin] 100 unit/mL (3 mL) insulin pen 2 - 10 unit subcut TIDAC 30 Days Qty: 15 11RF Protocol: Insulin Correction Scale Less than or equal to 110 ---- Give (units): 0 111 to 150 Give (units): 0 151 to 200 Give (units): 2 201 to 250 Give (units): 4 251 to 300 Give (units): 6 301 to 350 Give (units): 8 Greater than 350 Give (units): 10 Call MD if Blood Glucose > : 350 Rx Instructions: Via sliding scale losartan 25 mg tablet 25 mg PO DAILY Qty: 90 0RF pantoprazole 40 mg tablet,delayed release (DR/EC) 40 mg PO BID 90 Days Qty: 180 0RF aspirin 81 mg tablet,delayed release (DR/EC) 81 mg PO DAILY 90 Days Qty: 90 1RF albuterol sulfate [Ventolin HFA] 90 mcg/actuation HFA aerosol inhaler 1 inh inhalation QID PRN (Reason: shortness of breath or wheezing) 30 Days Qty: 18 2RF lamotrigine 25 mg tablet 25 mg PO BID 90 Days Qty: 180 1RF trazodone 100 mg tablet 100 mg PO BEDTIME 90 Days Qty: 90 0RF sulfasalazine 500 mg tablet 0.5 g PO BID Qty: 60 1RF budesonide 0.5 mg/2 mL suspension for nebulization 0.25 mg inhalation BID 30 Days Qty: 60 3RF (DME) FreeStyle Lite Strips Strip MISCELLANEOUS DAILY Qty: 100 1RF Rx Instructions: Use 1 test strip three times a day prednisone 5 mg tablet 5 mg PO DAILY Qty: 30 1RF ondansetron 4 mg tablet,disintegrating 4 mg PO Q8H PRN (Reason: nausea and vomiting) Qty: 14 0RF metoprolol tartrate 25 mg tablet 0.5 tab PO BID Trulicity 1.5 mg/0.5 mL pen injector 1.5 mg subcut WE@0900 ipratropium-albuterol 0.5 mg-3 mg(2.5 mg base)/3 mL Solution For Nebulization 3 ml inhalation RQ4H WHILE AWAKE Qty: 180 0RF metronidazole 500 mg Tablet 500 mg PO Q8H 5 Days Qty: 15 0RF cefuroxime axetil 500 mg tablet 500 mg PO BID Qty: 10 0RF loperamide 2 mg capsule 2 mg PO Q6H PRN (Reason: loose stool) Qty: 20 0RF ondansetron 4 mg tablet,disintegrating 4 mg PO Q8H PRN (Reason: nausea and vomiting) Qty: 14 0RF nitroglycerin 0.4 mg tablet, sublingual 0.4 mg sublingual Q5M PRN (Reason: Chest Pain) atorvastatin 80 mg tablet 80 mg PO DAILY 90 Days Qty: 90 1RF Rx Instructions: patient lost recent RX, please fill this as emergency RX this one time Brilinta 90 mg tablet 90 mg PO BID 90 Days Qty: 180 1RF Rx Instructions: Please fill Rx today, patient lost previous RX, fill as emergency this one time insulin degludec [Tresiba FlexTouch U-100] 100 unit/mL (3 mL) insulin pen 20 unit subcut BEDTIME 90 Days Qty: 18 1RF lubiprostone [Amitiza] 8 mcg capsule 8 mcg PO BID 90 Days Qty: 180 1RF famotidine 20 mg tablet 20 mg PO BEDTIME 90 Days Qty: 90 1RF pregabalin [Lyrica] 200 mg capsule 200 mg PO BID Qty: 60 3RF Referrals: Adela Gipson MD [Primary Care Provider] - 1 week
[2023-02-01 08:44] VITALS: BP 170/90; PULSE 105; RESP 16; TEMP 36.8; O2SAT 99; BMI 18.8
[2023-02-01] MEDS: Pantoprazole Sodium 40 MG/10 ML VIAL IVPUSH (09:05)
[2023-02-01] MEDS: 0.9 % Sodium Chloride 1,000 ML 999 ML IVCONT ×2 (09:05→10:00)
[2023-02-01] MEDS: ondansetron HCL 4 MG/2 ML VIAL IVPUSH (09:05)
[2023-02-01 09:10] LABS: MANUAL DIFF FLAG NO
[2023-02-01 09:12] LABS: Basophils Percent Auto 0.2 % (0-2); Eosinophils Absolute Auto 0.1 X10*3/uL (0.0-0.4); Eosinophils Percent Auto 0.9 % (0-4); Hematocrit 39.1 % (37.0-47.0); Hemoglobin 12.7 g/dl (12.0-16.0); Imm Gran Abs Auto 0.03 X10*3/uL (0.00-0.03); Imm Gran Pct Auto 0.4 % (0.0-0.4); Lymphocytes Absolute Auto 2.5 X10*3/uL (1.2-4.9); Lymphocytes Percent Auto 29.5 % (20-40); Mean Corpuscular HGB Conc 32.5 g/dl (31.0-35.0); Mean Corpuscular Hemoglobin 28.2 pg (27.0-33.0); Mean Corpuscular Volume 86.9 fL (80.0-98.0); Mean Platelet Volume 10.2 fL (9.4-12.3); Monocytes Absolute Auto 0.6 X10*3/uL (0.1-1.2); Monocytes Percent Auto 7.1 % (2-11); Neutrophils Absolute Auto 5.2 x10*3/uL (2.0-8.3); Neutrophils Percent Auto 61.9 % (45-73); Platelet Count 321 X10*3/uL (160-400); Red Cell Distribution Width 13.8 % (11.0-16.0); White Blood Count 8.5 X10*3/uL (4.8-10.8)
[2023-02-01 09:36] LABS: Alanine Aminotransferase 17 U/L (0-31); Albumin Level 3.7 g/dL (3.5-5.0); Alkaline Phosphatase 57 U/L (39-117); Anion Gap 14 (12-20); Aspartate Amino Transferase 19 U/L (5-31); Bilirubin Direct < 0.2 mg/dL (0.0-0.5); Bilirubin Total 0.3 mg/dL (0.0-1.0); Blood Urea Nitrogen 7 mg/dL (9-16); Calcium 8.7 mg/dL (8.4-10.2); Carbon Dioxide 22 mmol/L (22-29); Chloride 108 mmol/L (96-108); Creatinine Clr Calc Pharmacy 64.2; Estimated Glomerular Filt Rate > 60; Glucose Random 199 mg/dL (60-115); Lipase 25 U/L (8-78); Potassium 4.6 mmol/L (3.3-5.1); Sodium 139 mmol/L (135-145); Total Protein 6.5 g/dL (6.5-8.0)
[2023-02-01] MEDS: PHENobarb/Hyoscy/Atropine/Scop 10 ML ELIXIR PO (10:15)
[2023-02-01] MEDS: iohexoL 350 MG/ML 100 ML INFUS..BTL 85 ML IV (10:15)
--- NOTE | 2023-02-01 10:30 | HO.ANESPROP2 ---
HPI - Anesthesia Eval Consult details Narrative: 62yo female patient with ?GIB. Stable. Hct 39. 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 (Acute) Headache (Acute) Polyarthralgia (Acute) Chest pain (Acute) HLD (hyperlipidemia) (Acute) Black stool (Acute) Cough (Acute) Allergic rhinitis (Acute) Colitis (Acute) Asthma (Acute) COPD (chronic obstructive pulmonary disease) (Acute) Vulvar abscess (Acute) COVID-19 (Acute) T2DM (type 2 diabetes mellitus) (Acute) Breast cancer (Acute) History of ischemic colitis (Acute) Chronic constipation (Acute) Colon cancer screening (Acute) History of Helicobacter pylori infection (Acute) Hepatitis A test positive (Acute) Breast cancer (Acute) Change in bowel habits (Acute) Abdominal bloating (Acute) Diverticulosis of colon (Acute) Left radial head fracture (Acute) Soft tissue injury of left wrist (Acute) Allergic rhinitis (Acute) Varicose veins of right lower extremity with inflammation (Acute) Raynauds disease (Acute) Close exposure to 2019-nCoV (Acute) Migraine (Acute) Neck pain (Acute) Back pain (Acute) Acute tension headache (Acute) Hypertensive urgency (Acute) Left arm weakness (Acute) Elevated troponin (Acute) NSTEMI (non-ST elevated myocardial infarction) (Acute) Diabetes mellitus (Acute) Stented coronary artery (Acute) RUQ abdominal pain (Acute) GERD (gastroesophageal reflux disease) (Acute) Dysphagia (Acute) Weight loss (Acute) Tendonitis of left rotator cuff (Acute) Abdominal pain (Acute) COPD exacerbation (Acute) Hyperkalemia (Acute) Hospital discharge follow-up (Acute) Colitis (Acute) H/O cardiac catheterization (Acute) Breast pain, right (Acute) Rash (Acute) Bloody diarrhea (Acute) PAD (peripheral artery disease) (Acute) Hyperlipidemia LDL goal <100 (Acute) Infiltrating ductal carcinoma of left breast, stage 2 (Acute) Insomnia (Acute) Dyslipidemia (Acute) Bipolar 1 disorder, depressed (Acute) Cough (Acute) Restrictive airway disease (Acute) Vitamin D deficiency (Acute) Osteoporosis (Acute) Hyperparathyroidism (Acute) Thyroid nodule (Acute) Fibromyalgia (Acute) Seropositive rheumatoid arthritis (Acute) Reactive airways dysfunction syndrome (Acute) Allergic rhinitis (Acute) Irritable bowel (Acute) Anxiety (Acute) Bronchial asthma (Acute) Diabetes type 2, uncontrolled (Acute) Past Medical History Medical History (Updated 01/31/23 @ 10:38 by Sosa Cruz) Allergic rhinitis Anxiety Atherosclerotic cardiovascular disease Bipolar 1 disorder, depressed Bloody diarrhea Breast pain, right Bronchial asthma Colitis COPD (chronic obstructive pulmonary disease) COPD exacerbation Cough CVA (cerebral vascular accident) Depression Diabetes type 2, uncontrolled Dyslipidemia Fibromyalgia HLD (hyperlipidemia) Hospital discharge follow-up HTN (hypertension) Hyperkalemia Hyperlipidemia LDL goal <100 Hyperparathyroidism Hypertension Hypothyroid IDDM (insulin dependent diabetes mellitus) Infiltrating ductal carcinoma of left breast, stage 2 Insomnia Irritable bowel Osteoporosis PAD (peripheral artery disease) Rash Reactive airways dysfunction syndrome Restrictive airway disease Seropositive rheumatoid arthritis T2DM (type 2 diabetes mellitus) Thyroid nodule Vitamin D deficiency Family History Family History Mother Diabetes HTN (hypertension) Uterus cancer Malignant tumor of head Breast cancer Father Diabetes HTN (hypertension) CVD (cardiovascular disease) Heart problem Maternal Aunt Breast cancer Brother Myocardial infarction S/P CABG x 4 Family/Other FH: mental illness Family/Other Lung cancer Other Mental health disorder Family history of problems with anesthesia: No Surgical History Surgical History H/O cardiac catheterization H/O: hysterectomy History of bronchoscopy History of bunionectomy of both great toes History of colonoscopy History of esophagogastroduodenoscopy (EGD) History of lumpectomy of left breast History of pubovaginal sling History of tubal ligation Hx of endoscopy Hx of sigmoidoscopy History of Problems with Anesthesia: No Social History Social History Household Members: Family Household Members Other:: sister Housing: House Are you a primary daytime caregiver to a significant other at home: No Do you presently have visiting nurse or other home services: Yes (sister is boat outboard engine mechanic) Alcohol intake: never Patient Tobacco Use Status: Current everyday Tobacco user Tobacco use type: Cigarette Cigarettes Per Day: 3 Years Smoked: 50 +/- e-Cigarette/Vaping Use: Never Used Second Hand Smoke Exposure: No Advance Directives: Yes Advance Directives on File: Yes Advance Directives Date on File: 12/22/21 service: No Current occupational status: disabled Current occupation: rt handed Cognitive needs: No Hearing needs: No Vision needs: Yes Meds Allergies Allergy/AdvReac Type Severity Reaction Status Date / Time dog dander [DOGS] Allergy Intermediate Respiratory Verified 01/28/23 11:11 distress ibuprofen [Ibuprofen] Allergy Intermediate STOMACH Verified 01/28/23 11:11 UPSET, abdominal pain, nausea and vomiting shellfish derived Allergy Intermediate Hives Verified 01/28/23 11:11 etanercept [From Enbrel] AdvReac Intermediate Facial Verified 01/28/23 11:11 Swelling metformin AdvReac Intermediate diarrhea Verified 01/28/23 11:11 metronidazole [From FLAGYL] AdvReac Intermediate DIARRHEA Verified 01/28/23 11:11 prednisone AdvReac Intermediate hallucinations, Verified 01/28/23 11:11 higher than 20 methylprednisolone AdvReac Rash Verified 01/28/23 11:11 Active Medications: Current Medications Sodium Chloride (Ns) 1,000 mls @ 999 mls/hr IVCONT .Q1H1M ELDER Stop: 02/01/23 11:00 Last Admin: 02/01/23 10:00 Dose: 999 mls/hr Home Medications Medication Instructions Recorded Confirmed Last Taken Type nitroglycerin 0.4 mg sublingual 0.4 mg sublingual Q5M PRN Chest 01/03/22 02/01/23 Unknown History tablet Pain dulaglutide 1.5 mg/0.5 mL 1.5 mg subcut WE@0900 11/08/22 02/01/23 11/01/22 History subcutaneous pen injector (Trulicity) metoprolol tartrate 25 mg tablet 0.5 tab PO BID 11/08/22 02/01/23 11/08/22 09:00 History Exam Exam Date and Time: February 01, 2023 1030 Height,Weight and Vital Signs: Height 5 ft 6 in Weight 53.07 kg Last Vital Signs Temp 98.2 F 02/01/23 08:44 Pulse 105 H 02/01/23 08:44 Resp 16 02/01/23 08:44 BP 170/90 H 02/01/23 08:44 Pulse Ox 99 02/01/23 08:44 O2 Del Method 02/01/23 08:44 Pertinent Lab Results Pertinent Lab Results: Laboratory Tests 02/01/23 02/01/23 08:51 08:51 WBC 8.5 RBC 4.50 Hgb 12.7 Hct 39.1 MCV 86.9 MCH 28.2 MCHC 32.5 RDW 13.8 Plt Count 321 MPV 10.2 Immature Gran % (Auto) 0.4 Neut % (Auto) 61.9 Lymph % (Auto) 29.5 [place] % (Auto) 7.1 Eos % (Auto) 0.9 Baso % (Auto) 0.2 Lymph # (Auto) 2.5 [place] # (Auto) 0.6 Eos # (Auto) 0.1 Baso # (Auto) 0.0 Abs Immat Gran (auto) 0.03 Absolute Neuts (auto) 5.2 Absolute Nucleated RBC 0.000 Nucleated RBC % (auto) 0.0 Sodium 139 Potassium 4.6 Chloride 108 Carbon Dioxide 22 Anion Gap 14 BUN 7 L Creatinine 0.78 Estim Creat Clear Calc 64.2 Estimated GFR > 60 Random Glucose 199 H Calcium 8.7 Total Bilirubin 0.3 Direct Bilirubin < 0.2 AST 19 ALT 17 Alkaline Phosphatase 57 Total Protein 6.5 Albumin 3.7 Lipase 25 Narrative Narrative: Procedure Date:? 01/24/2023 Procedure Type:? Transthoracic Echocardiogram ECG Rhythm:? ? ? Sinus Conclusions: - The left ventricular systolic function is normal.? The ? calculated ejection fraction is 60% by biplane method. ? - No obvious valvular pathology seen on this study.? Assessment and Plan Final Anesthetic Review Family History of Problems with Anesthesia: No History of Problems with Anesthesia: No
[2023-02-01 11:16] LABS: COVID-19 Test Negative (Negative); IDNOW Serial# 9DB6401D
--- NOTE | 2023-02-01 11:27 | PC.NURSE ---
pt discharged home with GI follow up, ambulated out of department with steady gait
== END 2023-02-01 11:25 | disposition home or self-care (01) ==
PROVIDERS: Emergency Provider Emergency Medicine; PCP Internal Medicine
DX: K55.9 Vascular disorder of intestine, unspecified (principal); R10.13 Epigastric pain; R42 Dizziness and giddiness; Z20.822 Contact with and (suspected) exposure to COVID-19; Z20.828 Contact with and (suspected) exposure to other viral communicable diseases; Z79.899 Other long term (current) drug therapy; K21.9 Gastro-esophageal reflux disease without esophagitis; R13.10 Dysphagia, unspecified; R14.0 Abdominal distension (gaseous); Z86.19 Personal history of other infectious and parasitic diseases
CPT/HCPCS: 36415; 74177; 80048; 80076; 83690; 85025; 87635; 96361; 96374; 96375; 99212; 99283; 99284; J2405; Q9967

== ENCOUNTER → 2023-03-11 07:56 | Outpatient (BNVA) | payer MEDICARE, MEDICAID, SELFPAY ==
[2023-02-01 11:40] VITALS: BP 100/64; BP 102/48; BP 110/70; BMI 25.5
== END ==
PROVIDERS: PCP Internal Medicine; Visit Provider Internal Medicine
DX: J44.9 Chronic obstructive pulmonary disease, unspecified (principal); J30.9 Allergic rhinitis, unspecified; R05.9 Cough, unspecified; F17.210 Nicotine dependence, cigarettes, uncomplicated; E11.9 Type 2 diabetes mellitus without complications; E78.5 Hyperlipidemia, unspecified; E21.3 Hyperparathyroidism, unspecified; E55.9 Vitamin D deficiency, unspecified; I10 Essential (primary) hypertension; M18.0 Bilateral primary osteoarthritis of first carpometacarpal joints
CPT/HCPCS: 82947; 83036; 99212

== ENCOUNTER 2023-03-24 17:52 | Emergency (ER) | payer MEDICARE, MEDICAID, SELFPAY ==
[2023-03-11 08:38] VITALS: BP 100/64; BP 102/48; BP 110/70; BMI 25.5
--- NOTE | ~2023-03-24 | XR_ITS ---
EXAMINATION: XR FOOT, LEFT CLINICAL INFORMATION: Trauma. Pain. COMPARISON: None available. TECHNIQUE: AP, lateral, and oblique views of the left foot. FINDINGS: The bones and soft tissues are normal. No fracture. Alignment is anatomic. Joint spaces are maintained. XR/XR foot LT min 3V IMPRESSION: Normal left foot.
--- NOTE | 2023-03-24 18:00 | ED.LOWEXIN ---
HPI - Extremity Injury (Lower) General Chief Complaint: Extremity Injury, Lower Stated Complaint: left foot injury Time Seen by Provider: 03/24/23 18:06 Source: patient, RN notes reviewed and old records reviewed Mode of arrival: ambulatory History of Present Illness HPI Narrative: 62 yo F with HTN, HLD, CAD s/p PCI, DM2, PAD, ashtma, COPD, steroid-dependent rheumatoid arthritis, fibromyalgia, bipolar depression, on ASA, c/o L foot pain and swelling s/p dropping 2L bottle of water on foot 1hr [employer]. Denies injury to other area, numbness, tingling, weakness. MD complaint: foot injury Onset (ago): hour(s) Related Data Home Medications Medication Instructions Recorded Confirmed nitroglycerin 0.4 mg sublingual 0.4 mg sublingual Q5M PRN Chest 01/03/22 03/11/23 tablet Pain dulaglutide 1.5 mg/0.5 mL 1.5 mg subcut WE@0900 11/08/22 03/11/23 subcutaneous pen injector (Trulicity) metoprolol tartrate 25 mg tablet 0.5 tab PO BID 11/08/22 03/11/23 Previous Rx's Medication Instructions Recorded atorvastatin 80 mg tablet 80 mg PO DAILY 90 days #90 tabs 02/06/22 ticagrelor 90 mg tablet (Brilinta) 90 mg PO BID 90 days #180 tabs 02/06/22 lancets 28 gauge (FreeStyle #100 ea 06/07/22 Lancets) pen needle, diabetic 31 gauge x #200 ea 06/07/2204/02 (Comfort EZ Pen [place]) Novolog FlexPen U-100 Insulin 100 2 - 10 unit subcut TIDAC 30 days 08/28/22 unit/mL (3 mL) subcutaneous #15 mL (insulin aspart U-100) losartan 25 mg tablet 25 mg PO DAILY #90 tabs 09/07/22 pantoprazole 40 mg tablet,delayed 40 mg PO BID 90 days #180 tabs 10/18/22 release aspirin 81 mg tablet,delayed 81 mg PO DAILY 90 days #90 tabs 11/25/22 release lamotrigine 25 mg tablet 25 mg PO BID 90 days #180 tabs 12/18/22 pregabalin 200 mg capsule (Lyrica) 200 mg PO BID #60 caps 01/02/23 budesonide 0.5 mg/2 mL suspension 0.25 mg inhalation BID ASTHMA/COPD 01/04/23 for nebulization 30 days #60 mL famotidine 20 mg tablet 20 mg PO BEDTIME 90 days #90 tabs 01/10/23 lubiprostone 8 mcg capsule 8 mcg PO BID 90 days #180 caps 01/10/23 (Amitiza) blood sugar diagnostic (FreeStyle #100 ea 01/20/23 Lite Strips) loperamide 2 mg capsule 2 mg PO Q6H PRN loose stool #20 01/26/23 caps metronidazole 500 mg tablet 500 mg PO Q8H 5 days #15 tabs 01/26/23 ondansetron 4 mg disintegrating 4 mg PO Q8H PRN nausea and 01/26/23 tablet vomiting #14 tabs walker #1 ea 02/08/23 insulin degludec 100 unit/mL (3 20 unit (0.2 mL) subcut BEDTIME 90 02/11/23 mL) subcutaneous pen (Tresi days #18 mL FlexTouch U-100 insulin) trazodone 100 mg tablet 100 mg PO BEDTIME 90 days #90 tabs 02/11/23 letrozole 2.5 mg tablet 2.5 mg PO DAILY #90 tabs 02/12/23 sulfasalazine 500 mg tablet 0.5 g PO BID #60 tabs 02/12/23 Ventolin HFA 90 mcg/actuation 1 inh inhalation QID PRN shortness 02/28/23 aerosol inhaler (albuterol sulfate) of breath or wheezing 30 days #18 grams azithromycin 250 mg tablet 250 mg PO 3XW COPD/BRONCHITIS 10 03/12/23 days #12 tabs ipratropium 0.5 mg-albuterol 3 mg 3 ml inhalation Q6H #180 mL 03/18/23 (2.5 mg base)/3 mL nebulization soln prednisone 5 mg tablet 5 mg PO DAILY for asthma #30 tabs 03/21/23 Allergies Allergy/AdvReac Type Severity Reaction Status Date / Time dog dander [DOGS] Allergy Intermediate Respiratory Verified 03/24/23 18:02 distress ibuprofen [Ibuprofen] Allergy Intermediate STOMACH Verified 03/24/23 18:02 UPSET, abdominal pain, nausea and vomiting shellfish derived Allergy Intermediate Hives Verified 03/24/23 18:02 etanercept [From Enbrel] AdvReac Intermediate Facial Verified 03/24/23 18:02 Swelling metformin AdvReac Intermediate diarrhea Verified 03/24/23 18:02 metronidazole [From FLAGYL] AdvReac Intermediate DIARRHEA Verified 03/24/23 18:02 prednisone AdvReac Intermediate hallucinations, Verified 03/24/23 18:02 higher than 20 methylprednisolone AdvReac Rash Verified 03/24/23 18:02 Review of Systems Review of Systems: Constitutional: No Fever, No Chills ENT/Mouth: No Ear Pain, No Nasal Congestion, No sore throat, No Rhinorrhea, No Swallowing Difficulty Cardiovascular: No Chest Pain, No SOB Respiratory: No Cough, No Sputum Gastrointestinal: No Nausea, No Vomiting, No Abdominal pain Musculoskeletal: + joint pain, No Myalgias, + Joint Swelling Skin: No Skin Lesions, No rash Neuro: No Weakness, No Numbness, No Paresthesias Yes all other systems are reviewed and are negative Constitutional: Constitutional: Reports as per [facility] Past Medical History Attestation statement: The following information was validated with the patient. Source: old records reviewed Medical History Allergic rhinitis Anxiety Atherosclerotic cardiovascular disease Bipolar 1 disorder, depressed Bloody diarrhea Breast pain, right Bronchial asthma CAD (coronary artery disease) Colitis COPD (chronic obstructive pulmonary disease) COPD exacerbation Cough CVA (cerebral vascular accident) Depression Diabetes type 2, uncontrolled Dyslipidemia Fibromyalgia GERD (gastroesophageal reflux disease) HLD (hyperlipidemia) Hospital discharge follow-up HTN (hypertension) Hyperkalemia Hyperlipidemia LDL goal <100 Hyperparathyroidism Hypertension Hypothyroid IDDM (insulin dependent diabetes mellitus) Infiltrating ductal carcinoma of left breast, stage 2 Insomnia Irritable bowel Osteoporosis PAD (peripheral artery disease) Rash Reactive airways dysfunction syndrome Restrictive airway disease Seropositive rheumatoid arthritis T2DM (type 2 diabetes mellitus) Thyroid nodule Vitamin D deficiency Surgical History H/O cardiac catheterization H/O: hysterectomy History of bronchoscopy History of bunionectomy of both great toes History of colonoscopy History of esophagogastroduodenoscopy (EGD) History of lumpectomy of left breast History of pubovaginal sling History of tubal ligation Hx of endoscopy Hx of sigmoidoscopy Family History Family History Mother Diabetes HTN (hypertension) Uterus cancer Malignant tumor of head Breast cancer Father Diabetes HTN (hypertension) CVD (cardiovascular disease) Heart problem Maternal Aunt Breast cancer Brother Myocardial infarction S/P CABG x 4 Family/Other FH: mental illness Family/Other Lung cancer Other Mental health disorder Social History Social History Household Members: Family Household Members Other:: sister Housing: House Are you a primary rn progressive care unit to a significant other at home: No Do you presently have visiting nurse or other home services: Yes (sister is bank cashier) Alcohol intake: never Patient Tobacco Use Status: Current everyday Tobacco user Tobacco use type: Cigarette Cigarettes Per Day: 3 Years Smoked: 50 +/- e-Cigarette/Vaping Use: Never Used Second Hand Smoke Exposure: No Advance Directives: Yes Advance Directives on File: Yes Advance Directives Date on File: 12/22/21 service: No Current occupational status: disabled Current occupation: rt handed Cognitive needs: No Hearing needs: No Vision needs: Yes Physical Exam Vital Signs: Vital Signs: Last Vital Signs Temp 98.5 F 03/24/23 18:02 Pulse 123 H 03/24/23 18:02 Resp 18 03/24/23 18:02 BP 118/83 03/24/23 18:02 Pulse Ox 96 03/24/23 18:02 O2 Del Method Room Air 03/24/23 18:02 BMI result Body Mass Index 25.1 Const: General: cooperative, healthy appearing and no acute distress Orientation/consciousness: patient oriented x3 Limitations: no limitations HEENT: Head: Yes normal to inspection and Yes atraumatic Ears: hearing grossly normal bilaterally General nose exam: Normal external nose present Face and sinus: Yes normal facial exam Eyes: General: appearance normal, both eyes and all related structures EOM: EOMs intact bilaterally Neck: Neck: Yes normal visual inspection and Yes no meningeal signs Resp: Effort & Inspection: normal respiratory effort and no respiratory distress Cardio: Rate: regular rate Skin: Rashes: no rashes Wounds: no wounds Neuro: General: patient oriented x3, tone normal and no meningeal signs Gait exam (Neuro): Normal gait present Extrem: Other: Left foot with noted swelling to volar aspect with tenderness to palpation. No ecchymosis/erythema. NV intact. Ankle nontender. Ambulating w/crutches in ED Course Course Course Narrative: XR foot LT min 3V IMPRESSION: Normal left foot. > William wrap applied for stability/comfort Results discussed with patient including worrisome signs and symptoms and strict return precautions, and when to return to the emergency department. They verbalized understanding and feel safe for discharge at this time. Medications Administered Discontinued Medications Generic Name Dose Route Start Last Admin Trade Name Freq PRN Reason Stop Dose Admin Acetaminophen 975 mg 03/24/23 19:51 03/24/23 20:01 Acetaminophen 325 Mg Tablet PO 03/24/23 19:52 975 mg ONCE ONE Administration Medical Decision Making Medical Decision Making MDM Narrative: 62 yo F with HTN, HLD, CAD s/p PCI, DM2, PAD, ashtma, COPD, steroid-dependent rheumatoid arthritis, fibromyalgia, bipolar depression, on ASA, c/o L foot pain and swelling s/p dropping 2L bottle of water on foot 1hr [employer]. On exam tachycardic likely from pain, PE as above with noted swelling to volar aspect of left foot. Ambulating with crutches in the emergency department. NV intact. No crepitus or erythema/warmth Plan: X-rays Please refer to course for remaining clinical decision making, interpretation of labs/imaging results, and discussions with consultants and/or family members. Differential Diagnosis Differential Diagnoses: The differential diagnosis associated with the presentation includes As above Lab Data [facility] Lab Attestation statement: I reviewed the patient's lab results. Radiology Impression Discussion of test interpretation with radiology: I have reviewed the radiologist's reading. External Record Review External record reviewed: Inpatient record, Office record, Outpatient record, Prior outpatient labs, Prior outpatient radiology, Primary care record and Outside ED record Tests considered The following testing was considered but not selected: As above Discharge Plan Discharge Clinical Impression: Contusion of foot Patient Disposition: Home, Self-Care Instructions: Foot Contusion (ED) Additional Instructions: Your x-rays unremarkable. Ice and elevate Wear William wrap for comfort/stability Take Tylenol for pain Follow-up with her doctor If area begins look infected, pain becomes unbearable return to the ED Prescriptions: No Action (DME) pen needle, diabetic [Comfort EZ Pen [place]] 31 gauge x 5/16 needle See Rx Instructions .ROUTE .[facility] Qty: 200 11RF Rx Instructions: Use 1 pen needle 6 times a day (DME) lancets [FreeStyle Lancets] 28 [facility] See Rx Instructions .Route Qty: 100 3RF Rx Instructions: Use 1 lancet once a day insulin aspart U-100 [Novolog FlexPen U-100 Insulin] 100 unit/mL (3 mL) insulin pen 2 - 10 unit subcut TIDAC 30 Days Qty: 15 11RF Protocol: Insulin Correction Scale Less than or equal to 110 ---- Give (units): 0 111 to 150 Give (units): 0 151 to 200 Give (units): 2 201 to 250 Give (units): 4 251 to 300 Give (units): 6 301 to 350 Give (units): 8 Greater than 350 Give (units): 10 Call MD if Blood Glucose > : 350 Rx Instructions: Via sliding scale losartan 25 mg tablet 25 mg PO DAILY Qty: 90 0RF pantoprazole 40 mg tablet,delayed release (DR/EC) 40 mg PO BID 90 Days Qty: 180 0RF aspirin 81 mg tablet,delayed release (DR/EC) 81 mg PO DAILY 90 Days Qty: 90 1RF lamotrigine 25 mg tablet 25 mg PO BID 90 Days Qty: 180 1RF budesonide 0.5 mg/2 mL suspension for nebulization 0.25 mg inhalation BID 30 Days Qty: 60 3RF (DME) FreeStyle Lite Strips Strip MISCELLANEOUS DAILY Qty: 100 1RF Rx Instructions: Use 1 test strip three times a day (DME) walker Misc See Rx Instructions .Route Qty: 1 0RF Rx Instructions: with seat trazodone 100 mg tablet 100 mg PO BEDTIME 90 Days Qty: 90 0RF insulin degludec [Tresiba FlexTouch U-100] 100 unit/mL (3 mL) insulin pen 20 unit subcut BEDTIME 90 Days Qty: 18 1RF sulfasalazine 500 mg tablet 0.5 g PO BID Qty: 60 1RF letrozole 2.5 mg Tablet 2.5 mg PO DAILY Qty: 90 3RF albuterol sulfate [Ventolin HFA] 90 mcg/actuation HFA aerosol inhaler 1 inh inhalation QID PRN (Reason: shortness of breath or wheezing) 30 Days Qty: 18 2RF azithromycin 250 mg tablet 250 mg PO 3XW 10 Days Qty: 12 3RF Rx Instructions: Saturday , Saturday and Saturday ipratropium-albuterol 0.5 mg-3 mg(2.5 mg base)/3 mL solution for nebulization 3 ml inhalation Q6H Qty: 180 0RF prednisone 5 mg tablet 5 mg PO DAILY Qty: 30 1RF metoprolol tartrate 25 mg tablet 0.5 tab PO BID Trulicity 1.5 mg/0.5 mL pen injector 1.5 mg subcut WE@0900 metronidazole 500 mg Tablet 500 mg PO Q8H 5 Days Qty: 15 0RF loperamide 2 mg capsule 2 mg PO Q6H PRN (Reason: loose stool) Qty: 20 0RF ondansetron 4 mg tablet,disintegrating 4 mg PO Q8H PRN (Reason: nausea and vomiting) Qty: 14 0RF nitroglycerin 0.4 mg tablet, sublingual 0.4 mg sublingual Q5M PRN (Reason: Chest Pain) atorvastatin 80 mg tablet 80 mg PO DAILY 90 Days Qty: 90 1RF Rx Instructions: patient lost recent RX, please fill this as emergency RX this one time Brilinta 90 mg tablet 90 mg PO BID 90 Days Qty: 180 1RF Rx Instructions: Please fill Rx today, patient lost previous RX, fill as emergency this one time lubiprostone [Amitiza] 8 mcg capsule 8 mcg PO BID 90 Days Qty: 180 1RF famotidine 20 mg tablet 20 mg PO BEDTIME 90 Days Qty: 90 1RF pregabalin [Lyrica] 200 mg capsule 200 mg PO BID Qty: 60 3RF Referrals: Adela Gipson MD [Primary Care Provider] - 5 days
[2023-03-24 18:02] VITALS: BP 118/83; PULSE 123; RESP 18; TEMP 36.9; O2SAT 96; BMI 25.1
[2023-03-24] MEDS: Acetaminophen 325 MG TABLET 975 MG PO (20:01)
--- NOTE | 2023-03-24 20:38 | PC.NURSE ---
pt medicated per MR for 10 left foot pain
== END 2023-03-24 20:44 | disposition home or self-care (01) ==
PROVIDERS: Emergency Provider Student in an Organized Health Care Education/Training Program; PCP Internal Medicine
DX: S90.32XA Contusion of left foot, initial encounter (principal); M79.672 Pain in left foot; I25.10 Atherosclerotic heart disease of native coronary artery without angina pectoris; E11.9 Type 2 diabetes mellitus without complications; I10 Essential (primary) hypertension; J44.9 Chronic obstructive pulmonary disease, unspecified; F17.210 Nicotine dependence, cigarettes, uncomplicated; X58.XXXA Exposure to other specified factors, initial encounter; Y93.9 Activity, unspecified; Y92.9 Unspecified place or not applicable; Y99.9 Unspecified external cause status; Z79.899 Other long term (current) drug therapy; Z79.52 Long term (current) use of systemic steroids; Z79.4 Long term (current) use of insulin; Z71.6 Tobacco abuse counseling
CPT/HCPCS: 73630; 99283

== ENCOUNTER 2023-03-29 11:36 | Outpatient (REF) | payer MEDICARE, MEDICAID, SELFPAY ==
[2023-03-11 08:38] VITALS: BP 100/64; BP 102/48; BP 110/70; BMI 25.5
[2023-03-29 12:01] LABS: MANUAL DIFF FLAG NO
[2023-03-29 13:15] LABS: Basophils Percent Auto 0.5 % (0-2); Eosinophils Absolute Auto 0.1 X10*3/uL (0.0-0.4); Eosinophils Percent Auto 0.9 % (0-4); Hemoglobin 13.2 g/dl (12.0-16.0); Imm Gran Abs Auto 0.03 X10*3/uL (0.00-0.03); Imm Gran Pct Auto 0.4 % (0.0-0.4); Lymphocytes Absolute Auto 3.3 X10*3/uL (1.2-4.9); Lymphocytes Percent Auto 40.7 % (20-40); Mean Corpuscular HGB Conc 32.2 g/dl (31.0-35.0); Mean Corpuscular Hemoglobin 28.8 pg (27.0-33.0); Mean Corpuscular Volume 89.3 fL (80.0-98.0); Mean Platelet Volume 11.3 fL (9.4-12.3); Monocytes Absolute Auto 0.6 X10*3/uL (0.1-1.2); Monocytes Percent Auto 7.7 % (2-11); Neutrophils Absolute Auto 4.1 x10*3/uL (2.0-8.3); Neutrophils Percent Auto 49.8 % (45-73); Platelet Count 312 X10*3/uL (160-400); Red Blood Count 4.59 X10*6/uL (4.20-5.50); Red Cell Distribution Width 14.3 % (11.0-16.0); White Blood Count 8.1 X10*3/uL (4.8-10.8)
[2023-03-29 13:56] LABS: Alanine Aminotransferase 10 U/L (0-31); Albumin Level 4.2 g/dL (3.5-5.0); Alkaline Phosphatase 60 U/L (39-117); Anion Gap 12 (12-20); Aspartate Amino Transferase 12 U/L (5-31); Bilirubin Total 0.4 mg/dL (0.0-1.0); Blood Urea Nitrogen 9 mg/dL (9-16); C Reactive Protein 0.72 mg/dL (< or = 0.50); Calcium 9.7 mg/dL (8.4-10.2); Carbon Dioxide 26 mmol/L (22-29); Chloride 109 mmol/L (96-108); Estimated Glomerular Filt Rate > 60; Glucose Random 115 mg/dL (60-115); Potassium 4.6 mmol/L (3.3-5.1); Sodium 142 mmol/L (135-145); Total Protein 6.9 g/dL (6.5-8.0)
[2023-03-29 14:00] LABS: Erythrocyte Sedimentation Rate 12 MM/HR (0-20)
== END 2023-03-29 11:37 | disposition home or self-care (01) ==
LOC: HO.LAB 11:36
PROVIDERS: PCP Internal Medicine; Visit Provider Nurse Practitioner Family
DX: M05.9 Rheumatoid arthritis with rheumatoid factor, unspecified (principal)
CPT/HCPCS: 36415; 80053; 85025; 85652; 86140

== ENCOUNTER → 2023-04-01 08:58 | Outpatient (BNVA) | payer MEDICARE, MEDICAID, SELFPAY ==
[2023-03-11 08:38] VITALS: BP 100/64; BP 102/48; BP 110/70; BMI 25.5
== END ==
PROVIDERS: PCP Internal Medicine; Visit Provider Internal Medicine
DX: J44.9 Chronic obstructive pulmonary disease, unspecified (principal); J45.909 Unspecified asthma, uncomplicated; R05.9 Cough, unspecified; F41.9 Anxiety disorder, unspecified; F17.210 Nicotine dependence, cigarettes, uncomplicated
CPT/HCPCS: 99212

== ENCOUNTER → 2023-04-02 10:35 | Outpatient (BNVA) | payer MEDICARE, MEDICAID, SELFPAY ==
[2023-03-11 08:38] VITALS: BP 100/64; BP 102/48; BP 110/70; BMI 25.5
== END ==
PROVIDERS: PCP Internal Medicine; Visit Provider Nurse Practitioner Family
DX: M05.9 Rheumatoid arthritis with rheumatoid factor, unspecified (principal); M79.7 Fibromyalgia
CPT/HCPCS: 99212

== ENCOUNTER 2023-04-05 08:18 | Outpatient (REF) | payer MEDICARE, MEDICAID, SELFPAY ==
[2023-03-11 08:38] VITALS: BP 100/64; BP 102/48; BP 110/70; BMI 25.5
[2023-04-05 09:40] LABS: MANUAL DIFF FLAG NO
[2023-04-05 10:30] LABS: Basophils Percent Auto 0.4 % (0-2); Eosinophils Absolute Auto 0.1 X10*3/uL (0.0-0.4); Eosinophils Percent Auto 0.9 % (0-4); Hematocrit 42.4 % (37.0-47.0); Hemoglobin 13.7 g/dl (12.0-16.0); Imm Gran Abs Auto 0.02 X10*3/uL (0.00-0.03); Imm Gran Pct Auto 0.3 % (0.0-0.4); Lymphocytes Absolute Auto 2.6 X10*3/uL (1.2-4.9); Lymphocytes Percent Auto 37.4 % (20-40); Mean Corpuscular HGB Conc 32.3 g/dl (31.0-35.0); Mean Corpuscular Hemoglobin 28.4 pg (27.0-33.0); Mean Platelet Volume 10.9 fL (9.4-12.3); Monocytes Absolute Auto 0.6 X10*3/uL (0.1-1.2); Monocytes Percent Auto 8.2 % (2-11); Neutrophils Absolute Auto 3.6 x10*3/uL (2.0-8.3); Neutrophils Percent Auto 52.8 % (45-73); Platelet Count 335 X10*3/uL (160-400); Red Blood Count 4.82 X10*6/uL (4.20-5.50); Red Cell Distribution Width 14.1 % (11.0-16.0); White Blood Count 6.8 X10*3/uL (4.8-10.8)
[2023-04-05 11:14] LABS: Alanine Aminotransferase 12 U/L (0-31); Albumin Level 4.3 g/dL (3.5-5.0); Alkaline Phosphatase 61 U/L (39-117); Anion Gap 14 (12-20); Aspartate Amino Transferase 13 U/L (5-31); Bilirubin Total 0.3 mg/dL (0.0-1.0); Blood Urea Nitrogen 11 mg/dL (9-16); C Reactive Protein 0.21 mg/dL (< or = 0.50); Calcium 9.7 mg/dL (8.4-10.2); Carbon Dioxide 25 mmol/L (22-29); Chloride 107 mmol/L (96-108); Estimated Glomerular Filt Rate > 60; Glucose Random 94 mg/dL (60-115); Potassium 4.5 mmol/L (3.3-5.1); Sodium 141 mmol/L (135-145); Total Protein 7.2 g/dL (6.5-8.0)
[2023-04-13 12:58] LABS: C1Q Complement Component 5.9 mg/dL (5.0-8.6)
== END 2023-04-05 08:19 | disposition home or self-care (01) ==
LOC: HO.LAB 08:18
PROVIDERS: PCP Internal Medicine; Visit Provider Internal Medicine Gastroenterology
DX: R10.10 Upper abdominal pain, unspecified (principal)
CPT/HCPCS: 36415; 80053; 81479; 82397; 83520; 85025; 86140; 86160; 88346; 88350; 99212

== ENCOUNTER 2023-04-06 10:53 | Outpatient (REF) | payer MEDICARE, MEDICAID, SELFPAY ==
[2023-03-11 08:38] VITALS: BP 100/64; BP 102/48; BP 110/70; BMI 25.5
[2023-04-12 22:24] LABS: Calprotectin, Fecal 92 mcg/g
== END 2023-04-06 10:54 | disposition home or self-care (01) ==
LOC: HO.LNP 10:53
PROVIDERS: Visit Provider Internal Medicine Gastroenterology
DX: R10.10 Upper abdominal pain, unspecified (principal)
CPT/HCPCS: 83993

== ENCOUNTER 2023-04-19 08:14 | Outpatient (REF) | payer MEDICARE, MEDICAID, SELFPAY ==
[2023-03-11 08:38] VITALS: BP 100/64; BP 102/48; BP 110/70; BMI 25.5
--- NOTE | ~2023-04-19 | US_ITS ---
EXAMINATION: Ultrasound abdomen Doppler for mesenteric arteries. CLINICAL INFORMATION: Abdominal pain. Rule out gallstones and mesenteric ischemia. COMPARISON: CT abdomen and pelvis 02/01/2023. TECHNIQUE: Doppler evaluation with color and spectral analysis performed of the visceral arteries. FINDINGS: Aorta: Proximal to SMA: 77 cm/s. Distal to SMA: 73 cm/s. Celiac artery: Supine: Inspiration: 122 cm/s. Expiration: 100 cm/s. Erect: Inspiration: 113 cm/s. Expiration: 164 cm/s. Superior mesenteric artery: Proximal: 294 cm/s. The distal waveforms are not indicative of hemodynamically significant disease. Mid: 196 cm/s. Distal: 143 cm/s. Inferior mesenteric artery: 143 cm/s. Splenic artery: 138 cm/s. Hepatic artery: 124 cm/s. US/US SMA IMPRESSION: Elevated velocity in the proximal superior mesenteric artery is nonspecific. By velocity criteria, this is consistent with hemodynamically significant stenosis. However, the distal waveforms are not indicative of significant upstream disease and there is no significant stenosis seen on CT from 02/01/2023.
--- NOTE | ~2023-04-19 | US_ITS ---
EXAMINATION: US ABDOMEN COMPLETE CLINICAL INFORMATION: Abdominal pain. Rule out gallstones. COMPARISON: None available. TECHNIQUE: Real-time imaging of the abdominal viscera. FINDINGS: PANCREAS: Normal. ABDOMINAL AORTA: The proximal, mid, and distal segments are normal in caliber. INFERIOR VENA CAVA: Visualized portions are normal. LIVER: The liver is normal in size. The liver contour is normal. There is diffuse increased liver parenchymal echogenicity. No focal hepatic lesion. There is no intrahepatic biliary duct dilatation seen. GALLBLADDER: Normal. The gallbladder is physiologically distended without evidence of stones, sludge, polyps, wall thickening or pericholecystic fluid. COMMON BILE DUCT: Normal in caliber measuring 0.4 cm in diameter. RIGHT KIDNEY: Normal. No hydronephrosis. No renal calculi or focal parenchymal lesions. The kidney measures 10.7 cm in maximum dimension. LEFT KIDNEY: Normal. No hydronephrosis. No renal calculi or focal parenchymal lesions. The kidney measures 9.9 cm in maximum dimension. SPLEEN: Normal. The spleen measures 8.1 cm in maximum dimension. FREE FLUID: None. US/US abdomen complete IMPRESSION: 1. There is generalized increase in hepatic echotexture, consistent with fatty infiltration or hepatocellular disease. Please correlate clinically. No focal hepatic mass or intrahepatic biliary dilatation is seen. 2. Otherwise, unremarkable examination.
== END 2023-04-19 08:15 | disposition home or self-care (01) ==
LOC: HO.US 08:14
PROVIDERS: PCP Internal Medicine; Visit Provider Internal Medicine Gastroenterology
DX: R10.10 Upper abdominal pain, unspecified (principal); L29.9 Pruritus, unspecified
CPT/HCPCS: 76700; 93976

== ENCOUNTER 2023-04-23 10:32 | Emergency (ER) | payer MEDICARE, MEDICAID, SELFPAY ==
[2023-04-22 10:17] VITALS: BP 100/64; BP 102/48; BP 110/70; BMI 25.5
== END 2023-04-23 11:58 | disposition left against medical advice (07) ==
PROVIDERS: Emergency Provider Emergency Medicine; PCP Internal Medicine
DX: S13.9XXA Sprain of joints and ligaments of unspecified parts of neck, initial encounter (principal); X58.XXXA Exposure to other specified factors, initial encounter; G43.909 Migraine, unspecified, not intractable, without status migrainosus; Y93.9 Activity, unspecified; Y92.9 Unspecified place or not applicable; Y99.9 Unspecified external cause status

== ENCOUNTER 2023-04-24 08:04 | Outpatient (REF) | payer MEDICARE, MEDICAID, SELFPAY ==
[2023-04-22 10:17] VITALS: BP 100/64; BP 102/48; BP 110/70; BMI 25.5
--- NOTE | ~2023-04-24 | XR_ITS ---
EXAMINATION: XR CERVICAL SPINE CLINICAL INFORMATION: Neck pain COMPARISON: Cervical spine CT from the same day TECHNIQUE: 4 views of the cervical spine were obtained including swimmer's view. FINDINGS: Bone alignment is normal. No fracture or dislocation. Degenerative cervical spondylosis and mild disc space narrowing from C5-C6 to C6-C7. Fullness of the upper prevertebral soft tissues. No corresponding abnormality is seen on CT and this may represent under aeration of the hypopharynx. Visualized lung apices are clear. XR/XR cervical spine 2V IMPRESSION: Mild degenerative changes.
--- NOTE | ~2023-04-24 | XR_ITS ---
EXAMINATION: XR CHEST CLINICAL INFORMATION: Cough. Difficulty breathing. COMPARISON: Previous chest x-ray January 2023 TECHNIQUE: 2 views of the chest were obtained. FINDINGS: No significant abnormality is noted involving the heart, lungs, mediastinum, bony thorax or soft tissues. XR/XR chest 2V IMPRESSION: Unremarkable examination.
== END 2023-04-24 08:05 | disposition home or self-care (01) ==
LOC: HO.XRAY 08:04
PROVIDERS: PCP Internal Medicine; Visit Provider Internal Medicine
DX: Z13.89 Encounter for screening for other disorder (principal)
CPT/HCPCS: 71046; 72040

== ENCOUNTER 2023-04-24 08:43 | Emergency (ER) | payer MEDICARE, MEDICAID, SELFPAY ==
[2023-04-22 10:17] VITALS: BP 100/64; BP 102/48; BP 110/70; BMI 25.5
--- NOTE | ~2023-04-24 | CT_ITS ---
EXAMINATION: CT HEAD WITHOUT CONTRAST CLINICAL INFORMATION: Severe headache COMPARISON: Previous head CT December 2021 TECHNIQUE: Contiguous axial imaging was performed from the skull base to vertex without intravenous administration of contrast. This CT examination was performed using dose optimization techniques as appropriate, variously including the following: *Automated exposure control *Adjustment of mA and/or kV according to patient size (this includes techniques or standardized protocols for targeted exams where dose is matched to indication/reason for exam; i.e. extremities or head) *Use of iterative reconstruction technique DLP: 652 mGy-cm FINDINGS: There is no evidence of an extra-axial collection. There is no evidence of intra or extra-axial hemorrhage. The ventricles and extra-axial CSF spaces are appropriate. Garvin-white matter differentiation is normal. There is old infarct or encephalomalacia of the medial left occipital lobe similar to previous exams. No mass, mass effect or acute infarct. Review at bone windows is normal. No skull fracture. Visualized paranasal sinuses, mastoid air cells and middle ears are clear. CT/CT head/brain wo IV con IMPRESSION: No acute findings. No change from previous exams.
--- NOTE | ~2023-04-24 | CT_ITS ---
EXAMINATION: CT CERVICAL SPINE WITHOUT CONTRAST CLINICAL INFORMATION: Severe neck pain COMPARISON: Previous cervical spine x-ray from earlier the same day and neck CT July 2022 TECHNIQUE: Axial images through the cervical spine without contrast. Sagittal and coronal reconstructions on the technologist workstation were performed. This CT examination was performed using dose optimization techniques as appropriate, variously including the following: *Automated exposure control *Adjustment of mA and/or kV according to patient size (this includes techniques or standardized protocols for targeted exams where dose is matched to indication/reason for exam; i.e. extremities or head) *Use of iterative reconstruction technique DLP: 307 mGy-cm FINDINGS: Bone alignment is normal. No fracture or dislocation. There is mild degenerative spondylosis at C2-C3. There is mild degenerative spondylosis and disc space narrowing at C5-C6 and C6-C7. There is mild disc bulge at C5-C6 and C6-C7.. No disc herniation. There is left-sided facet arthritis at C2-C3. There is right-sided facet arthritis at C3-C4 and C4-C5. The prevertebral soft tissues are normal. There is bilateral carotid calcification. The thyroid gland is normal. There is biapical pleural and parenchymal scarring at the lung apices. CT/CT cervical spine wo IV con IMPRESSION: No fracture or dislocation. Mild degenerative changes. Fleischner guidelines were followed.
[2023-04-24 08:48] VITALS: BP 153/93; PULSE 110; RESP 16; TEMP 36.1; O2SAT 96; BMI 23.2
--- NOTE | 2023-04-24 11:01 | ED.NECK ---
HPI - Neck Pain/Injury General Chief Complaint: Headache Stated Complaint: head/neck pain Time Seen by Provider: 04/24/23 11:00 Source: patient Mode of arrival: ambulatory Limitations: no limitations History of Present Illness HPI Narrative: Patient complain of headache and neck pain for last few days seen PCP today who sent her here for evaluate and patient does have pain in her jaws no fever no chills no nausea no vomiting patient very anxious on arrival Related Data Home Medications Medication Instructions Recorded Confirmed nitroglycerin 0.4 mg sublingual 0.4 mg sublingual Q5M PRN Chest 01/03/22 04/24/23 tablet Pain Previous Rx's Medication Instructions Recorded ticagrelor 90 mg tablet (Brilinta) 90 mg PO BID 90 days #180 tabs 02/06/22 lancets 28 gauge (FreeStyle #100 ea 06/07/22 Lancets) pen needle, diabetic 31 gauge x #200 ea 06/07/2204/02 (Comfort EZ Pen [place]) Novolog FlexPen U-100 Insulin 100 2 - 10 unit subcut TIDAC 30 days 08/28/22 unit/mL (3 mL) subcutaneous #15 mL (insulin aspart U-100) pantoprazole 40 mg tablet,delayed 40 mg PO BID 90 days #180 tabs 10/18/22 release pregabalin 200 mg capsule (Lyrica) 200 mg PO BID #60 caps 01/02/23 budesonide 0.5 mg/2 mL suspension 0.25 mg inhalation BID ASTHMA/COPD 01/04/23 for nebulization 30 days #60 mL famotidine 20 mg tablet 20 mg PO BEDTIME 90 days #90 tabs 01/10/23 lubiprostone 8 mcg capsule 8 mcg PO BID 90 days #180 caps 01/10/23 (Amitiza) walker #1 ea 02/08/23 insulin degludec 100 unit/mL (3 20 unit (0.2 mL) subcut BEDTIME 90 02/11/23 mL) subcutaneous pen (Tresiba days #18 mL FlexTouch U-100 insulin) trazodone 100 mg tablet 100 mg PO BEDTIME 90 days #90 tabs 02/11/23 letrozole 2.5 mg tablet 2.5 mg PO DAILY #90 tabs 02/12/23 Ventolin HFA 90 mcg/actuation 1 inh inhalation QID PRN shortness 02/28/23 aerosol inhaler (albuterol sulfate) of breath or wheezing 30 days #18 grams ipratropium 0.5 mg-albuterol 3 mg 3 ml inhalation Q6H #180 mL 03/18/23 (2.5 mg base)/3 mL nebulization soln prednisone 5 mg tablet 5 mg PO DAILY for asthma #30 tabs 03/21/23 blood sugar diagnostic (FreeStyle #100 ea 03/31/23 Lite Strips) sulfasalazine 500 mg tablet 0.5 g PO BID #60 tabs 04/17/23 dulaglutide 1.5 mg/0.5 mL 1.5 mg (0.5 mL) subcut WE@0900 90 04/22/23 subcutaneous pen injector days #6.5 mL (Trulicity) ondansetron 8 mg disintegrating 8 mg PO Q8H PRN nausea and 04/24/23 tablet vomiting 30 days #90 tabs tramadol 50 mg tablet 50 mg PO Q6H PRN pain #20 tabs 04/24/23 Allergies Allergy/AdvReac Type Severity Reaction Status Date / Time dog dander [DOGS] Allergy Intermediate Respiratory Verified 04/24/23 07:45 distress shellfish derived Allergy Intermediate Hives Verified 04/24/23 07:45 methylprednisolone Allergy Rash Verified 04/24/23 07:45 etanercept [From Enbrel] AdvReac Intermediate Facial Verified 04/24/23 07:45 Swelling ibuprofen [Ibuprofen] AdvReac Intermediate STOMACH Verified 04/24/23 07:45 UPSET, abdominal pain, nausea and vomiting metformin AdvReac Intermediate Diarrhea Verified 04/24/23 07:45 metronidazole [From FLAGYL] AdvReac Intermediate Diarrhea Verified 04/24/23 07:45 prednisone AdvReac Intermediate hallucinations, Verified 04/24/23 07:45 higher than 20 Review of Systems Review of Systems: Yes all other systems are reviewed and are negative PMFSH Past Medical History Medical History Allergic rhinitis Anxiety Anxiety Atherosclerotic cardiovascular disease Bipolar 1 disorder, depressed Bloody diarrhea Breast pain, right Bronchial asthma CAD (coronary artery disease) Colitis COPD (chronic obstructive pulmonary disease) COPD exacerbation Cough CVA (cerebral vascular accident) Depression Diabetes type 2, uncontrolled Dyslipidemia Fibromyalgia GERD (gastroesophageal reflux disease) HLD (hyperlipidemia) Hospital discharge follow-up HTN (hypertension) Hyperkalemia Hyperlipidemia LDL goal <100 Hyperparathyroidism Hypertension Hypothyroid IDDM (insulin dependent diabetes mellitus) Infiltrating ductal carcinoma of left breast, stage 2 Insomnia Irritable bowel Osteoporosis PAD (peripheral artery disease) Rash Reactive airways dysfunction syndrome Restrictive airway disease Seropositive rheumatoid arthritis T2DM (type 2 diabetes mellitus) Thyroid nodule Vitamin D deficiency Surgical History H/O cardiac catheterization H/O: hysterectomy History of bronchoscopy History of bunionectomy of both great toes History of colonoscopy History of esophagogastroduodenoscopy (EGD) History of lumpectomy of left breast History of pubovaginal sling History of tubal ligation Hx of endoscopy Hx of sigmoidoscopy Family History Family History Mother Diabetes HTN (hypertension) Uterus cancer Malignant tumor of head Breast cancer Father Diabetes HTN (hypertension) CVD (cardiovascular disease) Heart problem Maternal Aunt Breast cancer Brother Myocardial infarction S/P CABG x 4 Family/Other FH: mental illness Family/Other Lung cancer Other Mental health disorder Social History Social History Household Members: Family Household Members Other:: sister Housing: House Are you a primary care management specialist to a significant other at home: No Do you presently have visiting nurse or other home services: Yes (sister is vp legal affairs) Alcohol intake: never Patient Tobacco Use Status: Current everyday Tobacco user Tobacco use type: Cigarette Cigarettes Per Day: 3 Years Smoked: 50 +/- e-Cigarette/Vaping Use: Never Used Second Hand Smoke Exposure: No Advance Directives: Yes Advance Directives on File: Yes Advance Directives Date on File: 12/22/21 service: No Current occupational status: disabled Current occupation: rt handed Cognitive needs: No Hearing needs: No Vision needs: Yes Physical Exam Vital Signs: Vital Signs: Last Vital Signs Temp 97 F 04/24/23 08:48 Pulse 110 H 04/24/23 08:48 Resp 16 04/24/23 08:48 BP 153/93 H 04/24/23 08:48 Pulse Ox 96 04/24/23 08:48 O2 Del Method Room Air 04/24/23 08:48 BMI result Body Mass Index 23.2 Appearance: Alert. Oriented X3. No acute distress. Very anxious Eyes: PERRLA, No Nystagmus ENT: Pharynx normal. Oral Mucosa moist and bilateral TMJ tenderness no temporal artery tenderness Neck: Normal inspection. Neck supple. CVS: Normal heart rate and rhythm. Pulses normal. Respiratory: No respiratory distress. Equal air entry bilateral, no wheezing/rales/rhonchi Abdomen: Soft and nontender. Bowel sounds are present, Skin: Skin warm and dry. Normal skin color. Normal skin turgor. Extremities: No lower extremity edema. No calf tenderness Neuro: Oriented X 3. No motor deficit. No sensory deficit.No cerebellar signs , cranial nerves II-XII intact Medications Administered Discontinued Medications Generic Name Dose Route Start Last Admin Trade Name Mayra PRN Reason Stop Dose Admin Lorazepam 1 mg 04/24/23 11:08 04/24/23 11:30 Lorazepam 2 Mg/Ml Vial IVPUSH 04/24/23 11:09 1 mg ONCE ONE Administration Morphine Sulfate 4 mg 04/24/23 11:08 04/24/23 11:30 Morphine Sulfate 4 Mg/Ml Cartridge IVPUSH 04/24/23 11:09 4 mg ONCE ONE Administration Protocol Ondansetron HCl 4 mg 04/24/23 11:08 04/24/23 11:31 Ondansetron Hcl 4 Mg/2 Ml Vial IVPUSH 04/24/23 11:09 4 mg ONCE ONE Administration Medical Decision Making Medical Decision Making [facility] Narrative: Patient very anxious on arrival complaining of pain all over the head and the neck area head C-spine CT was negative of the further evaluation noted patient had TMJ pain which causing the headache and neck pain and patient was very anxious pain improved after pain medication patient advised to follow with dentist Lab Data [facility] Lab Attestation statement: I reviewed the patient's lab results. 04/24/23 11:21 04/24/23 11:21 Labs: Lab Results 04/24/23 04/24/23 04/24/23 Range/Units 11:21 11:21 11:21 WBC 10.6 (4.8-10.8) X10*3/uL RBC 4.68 (4.20-5.50) X10*6/uL Hgb 13.2 (12.0-16.0) g/dl Hct 40.7 (37.0-47.0) % MCV 87.0 (80.0-98.0) fL MCH 28.2 (27.0-33.0) pg MCHC 32.4 (31.0-35.0) g/dl RDW 14.2 (11.0-16.0) % Plt Count 307 (160-400) X10*3/uL MPV 10.2 (9.4-12.3) fL Immature Gran % (Auto) 0.5 H (0.0-0.4) % Neut % (Auto) 63.2 (45-73) % Lymph % (Auto) 28.2 (20-40) % [place] % (Auto) 7.3 (2-11) % Eos % (Auto) 0.6 (0-4) % Baso % (Auto) 0.2 (0-2) % Lymph # (Auto) 3.0 (1.2-4.9) X10*3/uL [place] # (Auto) 0.8 (0.1-1.2) X10*3/uL Eos # (Auto) 0.1 (0.0-0.4) X10*3/uL Baso # (Auto) 0.0 (0.0-0.2) X10*3/uL Abs Immat Gran (auto) 0.05 H (0.00-0.03) X10*3/uL Absolute Neuts (auto) 6.7 (2.0-8.3) x10*3/uL Absolute Nucleated RBC 0.000 (0.0-0.012) X10*3/uL Nucleated RBC % (auto) 0.0 (0.0-0.2) /100WBC ESR 13 (0-20) MM/HR PT 12.8 (10.0-13.1) SEC INR 1.1 (0.9-1.1) Sodium (135-145) mmol/L Potassium (3.3-5.1) mmol/L Chloride (96-108) mmol/L Carbon Dioxide (22-29) mmol/L Anion Gap (12-20) BUN (9-16) mg/dL Creatinine (0.5-1.4) mg/dL Estim Creat Clear Calc Estimated GFR Random Glucose (60-115) mg/dL Calcium (8.4-10.2) mg/dL 04/24/23 Range/Units 11:21 WBC (4.8-10.8) X10*3/uL RBC (4.20-5.50) X10*6/uL Hgb (12.0-16.0) g/dl Hct (37.0-47.0) % MCV (80.0-98.0) fL MCH (27.0-33.0) pg MCHC (31.0-35.0) g/dl RDW (11.0-16.0) % Plt Count (160-400) X10*3/uL MPV (9.4-12.3) fL Immature Gran % (Auto) (0.0-0.4) % Neut % (Auto) (45-73) % Lymph % (Auto) (20-40) % [place] % (Auto) (2-11) % Eos % (Auto) (0-4) % Baso % (Auto) (0-2) % Lymph # (Auto) (1.2-4.9) X10*3/uL [place] # (Auto) (0.1-1.2) X10*3/uL Eos # (Auto) (0.0-0.4) X10*3/uL Baso # (Auto) (0.0-0.2) X10*3/uL Abs Immat Gran (auto) (0.00-0.03) X10*3/uL Absolute Neuts (auto) (2.0-8.3) x10*3/uL Absolute Nucleated RBC (0.0-0.012) X10*3/uL Nucleated RBC % (auto) (0.0-0.2) /100WBC ESR (0-20) MM/HR PT (10.0-13.1) SEC INR (0.9-1.1) Sodium 142 (135-145) mmol/L Potassium 4.4 (3.3-5.1) mmol/L Chloride 109 H (96-108) mmol/L Carbon Dioxide 26 (22-29) mmol/L Anion Gap 11 L (12-20) BUN 10 (9-16) mg/dL Creatinine 0.81 (0.5-1.4) mg/dL Estim Creat Clear Calc 52.0 Estimated GFR > 60 Random Glucose 90 (60-115) mg/dL Calcium 9.9 (8.4-10.2) mg/dL Discharge Plan Discharge Clinical Impression: Temporomandibular joint arthralgia Patient Disposition: Home, Self-Care Instructions: Temporomandibular Disorder (ED) Additional Instructions: Take pain medication as prescribed and follow up with your dentist wear a mouth guard Prescriptions: New tramadol 50 mg tablet 50 mg PO Q6H PRN (Reason: pain) Qty: 20 0RF No Action (DME) pen needle, diabetic [Comfort EZ Pen [place]] 31 gauge x 5/16 needle See Rx Instructions .ROUTE .MEDSUPPLY Qty: 200 11RF Rx Instructions: Use 1 pen needle 6 times a day (DME) lancets [FreeStyle Lancets] 28 gauge misc See Rx Instructions .Route Qty: 100 3RF Rx Instructions: Use 1 lancet once a day insulin aspart U-100 [Novolog FlexPen U-100 Insulin] 100 unit/mL (3 mL) insulin pen 2 - 10 unit subcut TIDAC 30 Days Qty: 15 11RF Protocol: Insulin Correction Scale Less than or equal to 110 ---- Give (units): 0 111 to 150 Give (units): 0 151 to 200 Give (units): 2 201 to 250 Give (units): 4 251 to 300 Give (units): 6 301 to 350 Give (units): 8 Greater than 350 Give (units): 10 Call MD if Blood Glucose > : 350 Rx Instructions: Via sliding scale pantoprazole 40 mg tablet,delayed release (DR/EC) 40 mg PO BID 90 Days Qty: 180 0RF budesonide 0.5 mg/2 mL suspension for nebulization 0.25 mg inhalation BID 30 Days Qty: 60 3RF (DME) walker Misc See Rx Instructions .Route Qty: 1 0RF Rx Instructions: with seat trazodone 100 mg tablet 100 mg PO BEDTIME 90 Days Qty: 90 0RF insulin degludec [Tresiba FlexTouch U-100] 100 unit/mL (3 mL) insulin pen 20 unit subcut BEDTIME 90 Days Qty: 18 1RF letrozole 2.5 mg Tablet 2.5 mg PO DAILY Qty: 90 3RF albuterol sulfate [Ventolin HFA] 90 mcg/actuation HFA aerosol inhaler 1 inh inhalation QID PRN (Reason: shortness of breath or wheezing) 30 Days Qty: 18 2RF ipratropium-albuterol 0.5 mg-3 mg(2.5 mg base)/3 mL solution for nebulization 3 ml inhalation Q6H Qty: 180 0RF prednisone 5 mg tablet 5 mg PO DAILY Qty: 30 1RF (DME) FreeStyle Lite Strips Strip MISCELLANEOUS DAILY Qty: 100 1RF Rx Instructions: Use 1 test strip three times a day sulfasalazine 500 mg tablet 0.5 g PO BID Qty: 60 1RF Trulicity 1.5 mg/0.5 mL pen injector 1.5 mg subcut WE@0900 90 Days Qty: 6.5 2RF nitroglycerin 0.4 mg tablet, sublingual 0.4 mg sublingual Q5M PRN (Reason: Chest Pain) Brilinta 90 mg tablet 90 mg PO BID 90 Days Qty: 180 1RF Rx Instructions: Please fill Rx today, patient lost previous RX, fill as emergency this one time ondansetron 8 mg tablet,disintegrating 8 mg PO Q8H PRN (Reason: nausea and vomiting) 30 Days Qty: 90 0RF lubiprostone [Amitiza] 8 mcg capsule 8 mcg PO BID 90 Days Qty: 180 1RF famotidine 20 mg tablet 20 mg PO BEDTIME 90 Days Qty: 90 1RF pregabalin [Lyrica] 200 mg capsule 200 mg PO BID Qty: 60 3RF
[2023-04-24 11:26] LABS: MANUAL DIFF FLAG NO
[2023-04-24 11:29] LABS: Basophils Percent Auto 0.2 % (0-2); Eosinophils Absolute Auto 0.1 X10*3/uL (0.0-0.4); Eosinophils Percent Auto 0.6 % (0-4); Hematocrit 40.7 % (37.0-47.0); Hemoglobin 13.2 g/dl (12.0-16.0); Imm Gran Abs Auto 0.05 X10*3/uL (0.00-0.03); Imm Gran Pct Auto 0.5 % (0.0-0.4); Lymphocytes Percent Auto 28.2 % (20-40); Mean Corpuscular HGB Conc 32.4 g/dl (31.0-35.0); Mean Corpuscular Hemoglobin 28.2 pg (27.0-33.0); Mean Platelet Volume 10.2 fL (9.4-12.3); Monocytes Absolute Auto 0.8 X10*3/uL (0.1-1.2); Monocytes Percent Auto 7.3 % (2-11); Neutrophils Absolute Auto 6.7 x10*3/uL (2.0-8.3); Neutrophils Percent Auto 63.2 % (45-73); Platelet Count 307 X10*3/uL (160-400); Red Blood Count 4.68 X10*6/uL (4.20-5.50); Red Cell Distribution Width 14.2 % (11.0-16.0); White Blood Count 10.6 X10*3/uL (4.8-10.8)
[2023-04-24] MEDS: Morphine Sulfate 4 MG/ML CARTRIDGE IVPUSH (11:30)
[2023-04-24] MEDS: LORazepam 2 MG/ML VIAL 1 MG IVPUSH (11:30)
[2023-04-24] MEDS: ondansetron HCL 4 MG/2 ML VIAL IVPUSH (11:31)
[2023-04-24 11:33] LABS: INTERNATIONAL NORM RATIO 1.1 (0.9-1.1); Prothrombin Time 12.8 SEC (10.0-13.1)
[2023-04-24 11:46] LABS: Anion Gap 11 (12-20); Blood Urea Nitrogen 10 mg/dL (9-16); Calcium 9.9 mg/dL (8.4-10.2); Carbon Dioxide 26 mmol/L (22-29); Chloride 109 mmol/L (96-108); Estimated Glomerular Filt Rate > 60; Glucose Random 90 mg/dL (60-115); Potassium 4.4 mmol/L (3.3-5.1); Sodium 142 mmol/L (135-145)
[2023-04-24 12:10] LABS: Erythrocyte Sedimentation Rate 13 MM/HR (0-20)
--- NOTE | 2023-04-24 12:52 | PC.NURSE ---
Inpatient MD notified of pt unable to be aroused enough to be able to take PO medication and her blood pressure, if he wanted to give her IV medication. stated to hold PO medication for now
== END 2023-04-24 14:01 | disposition home or self-care (01) ==
PROVIDERS: Emergency Provider Internal Medicine; PCP Internal Medicine
DX: M26.603 Bilateral temporomandibular joint disorder, unspecified (principal); F41.9 Anxiety disorder, unspecified; E11.9 Type 2 diabetes mellitus without complications; I10 Essential (primary) hypertension; E78.5 Hyperlipidemia, unspecified; F17.210 Nicotine dependence, cigarettes, uncomplicated; Z79.4 Long term (current) use of insulin; Z79.899 Other long term (current) drug therapy
CPT/HCPCS: 36415; 70450; 71046; 72040; 72125; 80048; 85025; 85610; 85652; 96374; 96375; 99282; 99283; 99284; J2060; J2270; J2405

== ENCOUNTER 2023-04-25 08:15 | Outpatient (REF) | payer MEDICARE, MEDICAID, SELFPAY ==
[2023-04-22 10:17] VITALS: BP 100/64; BP 102/48; BP 110/70; BMI 25.5
[2023-04-25 09:38] LABS: Alanine Aminotransferase 11 U/L (0-31); Alkaline Phosphatase 60 U/L (39-117); Anion Gap 14 (12-20); Aspartate Amino Transferase 13 U/L (5-31); Bilirubin Total 0.3 mg/dL (0.0-1.0); Blood Urea Nitrogen 15 mg/dL (9-16); Calcium 9.6 mg/dL (8.4-10.2); Carbon Dioxide 26 mmol/L (22-29); Chloride 105 mmol/L (96-108); Cholesterol 212 mg/dL; Estimated Glomerular Filt Rate > 60; Glucose Fasting 121 mg/dL (60-99); HDL Cholesterol 34 mg/dL; LDL Cholesterol Calculated 138 mg/dl; Potassium 4.5 mmol/L (3.3-5.1); Sodium 140 mmol/L (135-145); Total Protein 6.9 g/dL (6.5-8.0); Triglycerides 201 mg/dL
[2023-04-25 09:48] LABS: Creatinine Urine 231.57 mg/dL
[2023-04-25 09:53] LABS: Vitamin D 25-OH Total 38.1 ng/mL (>30)
== END 2023-04-25 08:16 | disposition home or self-care (01) ==
LOC: HO.LAB 08:15
PROVIDERS: PCP Internal Medicine; Visit Provider Internal Medicine
DX: C50.919 Malignant neoplasm of unspecified site of unspecified female breast (principal); E78.5 Hyperlipidemia, unspecified; E55.9 Vitamin D deficiency, unspecified; E11.9 Type 2 diabetes mellitus without complications
CPT/HCPCS: 36415; 80053; 80061; 82043; 82306

== ENCOUNTER 2023-05-06 10:47 | Outpatient (REF) | payer MEDICARE, MEDICAID, SELFPAY ==
[2023-04-22 10:17] VITALS: BP 100/64; BP 102/48; BP 110/70; BMI 25.5
--- NOTE | ~2023-05-06 | MM_ITS ---
EXAMINATION: BONE DENSITOMETRY CLINICAL INDICATION: Follow up osteoporosis. COMPARISON: Previous BD dated 11/22/2020 and baseline BD dated 08/11/2008. TECHNIQUE: Using a Cerac DXA System (software version: 13.1) manufactured by [employer], dual-energy x-ray absorptiometry was performed of the lumbar spine, left hip, and left forearm radius 33%. The images are of good technical quality. Summary results are attached. FINDINGS: AP SPINE L1-L4: Current: BMD 0.934 g/cm2, Z-score -0.4, T-score -2.1, osteopenia, 1.5% increase from previous, 7.5% decrease from baseline (<5% change is not significant). Prior: BMD 0.920 g/cm2. Baseline: BMD 1.010 g/cm2. LEFT FEMUR, NECK: Current: BMD 0.773 g/cm2, Z-score -0.4, T-score -1.9, osteopenia. Prior: BMD 0.734 g/cm2. Baseline: BMD 0.815 g/cm2. LEFT FEMUR, TOTAL: Current: BMD 0.869 g/cm2, Z-score 0.1, T-score -1.1, osteopenia, 0.7% decrease from previous, 7.6% decrease from baseline (<5% change is not significant). Prior: BMD 0.875 g/cm2. Baseline: BMD 0.940 g/cm2. LEFT FOREARM RADIUS 33%: BMD 0.675 g/cm2, Z-score -1.3, T-score -2.3, osteopenia, 1.6% decrease from baseline (<5% change is not significant). Baseline: BMD 0.686 g/cm2. IDENTIFIED RISK FACTORS: Early menopause, anticonvulsant, glucocorticoids (chronic), height loss, history of fracture (adult), hyperparathyroid, hysterectomy, low calcium intake, rheumatoid arthritis, secondary osteoporosis, tobacco use (current smoker). HISTORY OF FRACTURE: Elbow. MEDICATIONS: ERT/SERMS. MM/XR DEXA appendicular skeleton IMPRESSION: 1. DIAGNOSIS: Osteopenia based on the lowest T-score value of -2.3 in the forearm radius 33% applying World Health Organization criteria. 2. 10-YEAR FRACTURE RISK PREDICTION, FRAX: Not performed in this patient on estrogen or bone building treatments. 3. Treatment Recommendations: NOF guidelines recommend consideration for treatment in postmenopausal women and men age 50 and older presenting with the following: -A hip or vertebral (clinical or morphometric) fracture. -T-score less than or equal to -2.5 at the femoral neck or spine after appropriate evaluation to exclude secondary causes. -Low bone mass at the hip or spine and a 10-year fracture probability by FRAX of greater than or equal to 3% for hip fracture or greater than or equal to 20% for major osteoporotic fracture based on the [place] adapted WHO algorithm. 4. Other Recommendations: All treatment decisions require clinical judgment and consideration of individual patient factors, including patient preferences, comorbidities, previous drug use, risk factors not captured in the FRAX model (e.g. frailty, falls, vitamin D deficiency, increased bone turnover, interval significant decline in bone density) and possible under or overestimation of fracture risk by FRAX. Additional medical evaluation for secondary cause of low bone mineral density may be appropriate. FUTURE SCAN RECOMMENDATION: People with diagnosed cases of osteoporosis or at high risk for fracture should have regular bone mineral density tests. For patients eligible for Medicare, routine testing is allowed once every 2 years. The testing frequency can be increased to one year for patients who have rapidly progressing disease, those who are receiving or discontinuing medical therapy to restore bone mass, or have additional risk factors.
== END 2023-05-06 10:48 | disposition home or self-care (01) ==
LOC: HO.MAMMO 10:47
PROVIDERS: PCP Internal Medicine; Visit Provider Internal Medicine Medical Oncology
DX: Z13.820 Encounter for screening for osteoporosis (principal); M81.0 Age-related osteoporosis without current pathological fracture; Z78.0 Asymptomatic menopausal state
CPT/HCPCS: 77081

== ENCOUNTER 2023-05-10 10:01 | Outpatient (REF) | payer MEDICARE, MEDICAID, SELFPAY ==
[2023-04-22 10:17] VITALS: BP 100/64; BP 102/48; BP 110/70; BMI 25.5
[2023-05-10 10:21] LABS: MANUAL DIFF FLAG NO
[2023-05-10 10:45] LABS: Basophils Percent Auto 0.3 % (0-2); Eosinophils Absolute Auto 0.1 X10*3/uL (0.0-0.4); Eosinophils Percent Auto 0.7 % (0-4); Hematocrit 41.5 % (37.0-47.0); Hemoglobin 13.4 g/dl (12.0-16.0); Imm Gran Abs Auto 0.02 X10*3/uL (0.00-0.03); Imm Gran Pct Auto 0.2 % (0.0-0.4); Lymphocytes Absolute Auto 2.7 X10*3/uL (1.2-4.9); Lymphocytes Percent Auto 29.9 % (20-40); Mean Corpuscular HGB Conc 32.3 g/dl (31.0-35.0); Mean Corpuscular Hemoglobin 28.3 pg (27.0-33.0); Mean Corpuscular Volume 87.7 fL (80.0-98.0); Mean Platelet Volume 10.6 fL (9.4-12.3); Monocytes Absolute Auto 0.7 X10*3/uL (0.1-1.2); Neutrophils Absolute Auto 5.6 x10*3/uL (2.0-8.3); Neutrophils Percent Auto 60.9 % (45-73); Platelet Count 366 X10*3/uL (160-400); Red Blood Count 4.73 X10*6/uL (4.20-5.50); Red Cell Distribution Width 13.9 % (11.0-16.0); White Blood Count 9.1 X10*3/uL (4.8-10.8)
[2023-05-10 11:26] LABS: Erythrocyte Sedimentation Rate 11 MM/HR (0-20)
[2023-05-10 13:41] LABS: Alanine Aminotransferase 10 U/L (0-31); Alkaline Phosphatase 63 U/L (39-117); Anion Gap 13 (12-20); Aspartate Amino Transferase 13 U/L (5-31); Bilirubin Total 0.5 mg/dL (0.0-1.0); Blood Urea Nitrogen 10 mg/dL (9-16); C Reactive Protein 0.35 mg/dL (< or = 0.50); Calcium 10.1 mg/dL (8.4-10.2); Carbon Dioxide 26 mmol/L (22-29); Chloride 108 mmol/L (96-108); Estimated Glomerular Filt Rate > 60; Glucose Random 73 mg/dL (60-115); Sodium 142 mmol/L (135-145); Total Protein 7.4 g/dL (6.5-8.0)
== END 2023-05-10 10:02 | disposition home or self-care (01) ==
LOC: HO.LAB 10:01
PROVIDERS: Absent Provider Internal Medicine Rheumatology; PCP Internal Medicine; Visit Provider Nurse Practitioner Family
DX: M05.9 Rheumatoid arthritis with rheumatoid factor, unspecified (principal)
CPT/HCPCS: 36415; 80053; 85025; 85652; 86140

== ENCOUNTER → 2023-05-13 10:46 | Outpatient (BNVA) | payer MEDICARE, MEDICAID, SELFPAY ==
[2023-04-22 10:17] VITALS: BP 100/64; BP 102/48; BP 110/70; BMI 25.5
== END ==
PROVIDERS: PCP Internal Medicine; Visit Provider Internal Medicine
DX: J44.9 Chronic obstructive pulmonary disease, unspecified (principal); J30.9 Allergic rhinitis, unspecified; R05.9 Cough, unspecified; F17.200 Nicotine dependence, unspecified, uncomplicated
CPT/HCPCS: 99212

== ENCOUNTER → 2023-05-14 10:05 | Outpatient (BNVA) | payer MEDICARE, MEDICAID, SELFPAY ==
[2023-04-22 10:17] VITALS: BP 100/64; BP 102/48; BP 110/70; BMI 25.5
== END ==
PROVIDERS: PCP Internal Medicine; Visit Provider Internal Medicine Rheumatology
DX: M05.9 Rheumatoid arthritis with rheumatoid factor, unspecified (principal); M79.7 Fibromyalgia; Z79.899 Other long term (current) drug therapy
CPT/HCPCS: 99212

== ENCOUNTER 2023-05-16 10:06 | Emergency (ER) | payer MEDICARE, MEDICAID, SELFPAY ==
[2023-04-22 10:17] VITALS: BP 100/64; BP 102/48; BP 110/70; BMI 25.5
--- NOTE | 2023-05-16 | ECG_ITS ---
Test Reason : CHEST PAIN Blood Pressure : / mmHG Vent. Rate : 117 BPM Atrial Rate : 117 BPM P-R Int : 124 ms QRS Dur : 076 ms QT Int : 302 ms P-R-T Axes : -17 -23 -01 degrees QTc Int : 421 ms Sinus tachycardia Nonspecific T wave changes Abnormal ECG When compared with ECG of 24-JAN-2023 06:15, Questionable change in QRS axis Nonspecific T wave changes Referred By: Generic ED Physician Electronically Signed By:Joseph Salmon
--- NOTE | ~2023-05-16 | CT_ITS ---
EXAMINATION: CT ANGIOGRAM CHEST CLINICAL INFORMATION: Chest pain radiating to back and neck COMPARISON: CT angiogram chest 12/18/2022 TECHNIQUE: Multiple axial images were obtained through the chest after the administration of 70 mL of Omnipaque 350 intravenous contrast. Extensive vascular post-processing including two-dimensional and three-dimensional reformatted images were created and reviewed on an independent workstation. This CT examination was performed using dose optimization techniques as appropriate, variously including the following: *Automated exposure control *Adjustment of mA and/or kV according to patient size (this includes techniques or standardized protocols for targeted exams where dose is matched to indication/reason for exam; i.e. extremities or head) *Use of iterative reconstruction technique DLP: 173 mGy-cm VASCULAR FINDINGS: The thoracic aorta and the visualized proximal abdominal aorta all appear normal without evidence of aneurysm, dissection or intramural hematoma. A tricuspid aortic valve is present. A three-vessel branching pattern of the arch is present with widely patent great vessels. The celiac and SMA are widely patent. There are single renal arteries seen bilaterally which are widely patent. Although not carried out for evaluation of the pulmonary arteries or pulmonary veins, they are well seen. No central or segmental pulmonary emboli are detected. The pulmonary veins appear unremarkable. NONVASCULAR FINDINGS: LUNGS: The lungs are clear with no evidence of inflammation or nodules. MEDIASTINUM: The heart size is normal. No mediastinal or hilar lymphadenopathy seen. Coronary calcium is present. PLEURA: There is no pleural effusion. No pleural mass or thickening. AXILLA: No lymphadenopathy. UPPER ABDOMEN: Unremarkable. OSSEOUS STRUCTURES: Unremarkable. CT/CT angio chest aorta IMPRESSION: No evidence of aortic dissection or aneurysm. No pulmonary emboli are seen. Fleischner guidelines were followed.
--- NOTE | ~2023-05-16 | XR_ITS ---
EXAMINATION: XR CHEST CLINICAL INFORMATION: Chest pain. COMPARISON: 04/24/2023 chest radiographs. TECHNIQUE: 2 views of the chest were obtained. FINDINGS: The lungs are clear. There are no pleural effusions. The heart and mediastinal structures are unremarkable. Old healed right sixth rib fracture without interval change. XR/XR chest 2V IMPRESSION: No acute cardiopulmonary process.
[2023-05-16 10:17] VITALS: BP 138/75; PULSE 123; RESP 26; TEMP 36.3; O2SAT 98; BMI 22.4
[2023-05-16 10:31] LABS: MANUAL DIFF FLAG NO
[2023-05-16 10:32] VITALS: BP 151/83; PULSE 102; RESP 20; TEMP 37.4; O2SAT 98
[2023-05-16 10:33] LABS: Basophils Percent Auto 0.3 % (0-2); Eosinophils Percent Auto 0.4 % (0-4); Hematocrit 40.8 % (37.0-47.0); Hemoglobin 13.3 g/dl (12.0-16.0); Imm Gran Abs Auto 0.02 X10*3/uL (0.00-0.03); Imm Gran Pct Auto 0.2 % (0.0-0.4); Lymphocytes Absolute Auto 3.4 X10*3/uL (1.2-4.9); Lymphocytes Percent Auto 37.5 % (20-40); Mean Corpuscular HGB Conc 32.6 g/dl (31.0-35.0); Mean Corpuscular Hemoglobin 28.1 pg (27.0-33.0); Mean Corpuscular Volume 86.3 fL (80.0-98.0); Mean Platelet Volume 10.4 fL (9.4-12.3); Monocytes Absolute Auto 0.6 X10*3/uL (0.1-1.2); Monocytes Percent Auto 7.1 % (2-11); Neutrophils Absolute Auto 4.9 x10*3/uL (2.0-8.3); Neutrophils Percent Auto 54.5 % (45-73); Platelet Count 328 X10*3/uL (160-400); Red Blood Count 4.73 X10*6/uL (4.20-5.50); Red Cell Distribution Width 13.9 % (11.0-16.0)
[2023-05-16 10:51] LABS: Alanine Aminotransferase 12 U/L (0-31); Albumin Level 4.1 g/dL (3.5-5.0); Alkaline Phosphatase 61 U/L (39-117); Anion Gap 15 (12-20); Aspartate Amino Transferase 15 U/L (5-31); Bilirubin Total 0.5 mg/dL (0.0-1.0); Blood Urea Nitrogen 8 mg/dL (9-16); Calcium 9.5 mg/dL (8.4-10.2); Carbon Dioxide 22 mmol/L (22-29); Chloride 107 mmol/L (96-108); Creatinine Clr Calc Pharmacy 49.5; Estimated Glomerular Filt Rate > 60; Glucose Random 98 mg/dL (60-115); Potassium 3.7 mmol/L (3.3-5.1); Sodium 140 mmol/L (135-145); Total Protein 7.5 g/dL (6.5-8.0)
[2023-05-16 10:59] LABS: Troponin-I High Sensitivity < 2.7 ng/L (<3.5-17.0)
[2023-05-16] MEDS: Morphine Sulfate 4 MG/ML CARTRIDGE IVPUSH (12:16)
[2023-05-16 12:22] VITALS: BP 153/82; PULSE 90; RESP 19; TEMP 37.2; O2SAT 97
--- NOTE | 2023-05-16 13:01 | PC.NURSE ---
Pt taken to Ct scan.
[2023-05-16] MEDS: iohexoL 350 MG/ML 100 ML INFUS..BTL IV (13:15)
--- NOTE | 2023-05-16 14:36 | ED_ITS ---
HPI - Chest Pain General Chief Complaint: Chest Pain Stated Complaint: chest pain Time Seen by Provider: 05/16/23 10:38 Source: patient Mode of arrival: ambulatory Limitations: no limitations History of Present Illness HPI narrative: 62-year-old female presents with chest pain. Chest pain started in the middle the night. She noted that radiated to the neck into the back. The symptoms are a 9/10. Symptoms are not clearly a relieved by any thing or exacerbated by anything. They were not associated with movement. There is no shortness breath, palpitations or lightheadedness. Patient reports having had these symptoms previously. She does have a cardiac history with stents. She is noncompliant with her medications including aspirin and Brilinta. There is no associated nausea vomiting, numbness or tingling. Patient describes her pain as sharp, aching and spasm. Related Data Home Medications Medication Instructions Recorded Confirmed nitroglycerin 0.4 mg sublingual 0.4 mg sublingual Q5M PRN Chest 01/03/22 04/25/23 tablet Pain Previous Rx's Medication Instructions Recorded ticagrelor 90 mg tablet (Brilinta) 90 mg PO BID 90 days #180 tabs 02/06/22 lancets 28 gauge (FreeStyle #100 ea 06/07/22 Lancets) pen needle, diabetic 31 gauge x #200 ea 06/07/2204/02 (Comfort EZ Pen [place]) Novolog FlexPen U-100 Insulin 100 2 - 10 unit subcut TIDAC 30 days 08/28/22 unit/mL (3 mL) subcutaneous #15 mL (insulin aspart U-100) pantoprazole 40 mg tablet,delayed 40 mg PO BID 90 days #180 tabs 10/18/22 release pregabalin 200 mg capsule (Lyrica) 200 mg PO BID #60 caps 01/02/23 budesonide 0.5 mg/2 mL suspension 0.25 mg inhalation BID ASTHMA/COPD 01/04/23 for nebulization 30 days #60 mL famotidine 20 mg tablet 20 mg PO BEDTIME 90 days #90 tabs 01/10/23 lubiprostone 8 mcg capsule 8 mcg PO BID 90 days #180 caps 01/10/23 (Amitiza) fadumo #1 ea 02/08/23 insulin degludec 100 unit/mL (3 20 unit (0.2 mL) subcut BEDTIME 90 02/11/23 mL) subcutaneous pen (Tresiba days #18 mL FlexTouch U-100 insulin) trazodone 100 mg tablet 100 mg PO BEDTIME 90 days #90 tabs 02/11/23 letrozole 2.5 mg tablet 2.5 mg PO DAILY #90 tabs 02/12/23 Ventolin HFA 90 mcg/actuation 1 inh inhalation QID PRN shortness 02/28/23 aerosol inhaler (albuterol sulfate) of breath or wheezing 30 days #18 grams prednisone 5 mg tablet 5 mg PO DAILY for asthma #30 tabs 03/21/23 blood sugar diagnostic (FreeStyle #100 ea 03/31/23 Lite Strips) sulfasalazine 500 mg tablet 0.5 g PO BID #60 tabs 04/17/23 dulaglutide 1.5 mg/0.5 mL 1.5 mg (0.5 mL) subcut WE@0900 90 04/22/23 subcutaneous pen injector days #6.5 mL (Trulicity) ondansetron 8 mg disintegrating 8 mg PO Q8H PRN nausea and 04/24/23 tablet vomiting 30 days #90 tabs tramadol 50 mg tablet 50 mg PO Q6H PRN pain #20 tabs 04/24/23 ipratropium 0.5 mg-albuterol 3 mg 3 ml inhalation Q6H #180 mL 05/15/23 (2.5 mg base)/3 mL nebulization soln cyclobenzaprine 10 mg tablet 10 mg PO TID PRN muscle spasm #10 05/16/23 tabs meloxicam 15 mg tablet 15 mg PO DAILY #7 tabs 05/16/23 Allergies Allergy/AdvReac Type Severity Reaction Status Date / Time dog dander [DOGS] Allergy Intermediate Respiratory Verified 05/14/23 10:09 distress shellfish derived Allergy Intermediate Hives Verified 05/14/23 10:09 methylprednisolone Allergy Rash Verified 05/14/23 10:09 etanercept [From Enbrel] AdvReac Intermediate Facial Verified 05/14/23 10:09 Swelling ibuprofen [Ibuprofen] AdvReac Intermediate STOMACH Verified 05/14/23 10:09 UPSET, abdominal pain, nausea and vomiting metformin AdvReac Intermediate Diarrhea Verified 05/14/23 10:09 metronidazole [From FLAGYL] AdvReac Intermediate Diarrhea Verified 05/14/23 10:09 prednisone AdvReac Intermediate hallucinations, Verified 05/14/23 10:09 higher than 20 Review of Systems Review of Systems: CONSTITUTIONAL: Denies weight loss, fever and chills. HEENT: Denies changes in vision and hearing. RESPIRATORY: Denies SOB and cough. CV: Denies palpitations + CP. GI: Denies abdominal pain, nausea, vomiting and diarrhea. : Denies dysuria and urinary frequency. MSK: + myalgia and joint pain. SKIN: Denies rash and pruritus. NEUROLOGICAL: + headache - syncope. PSYCHIATRIC: Denies recent changes in mood. Denies anxiety and depression. All other ROS are negative unless in HPI PMFSH Past Medical History Medical History Allergic rhinitis Anxiety Anxiety Atherosclerotic cardiovascular disease Bipolar 1 disorder, depressed Bloody diarrhea Breast pain, right Bronchial asthma CAD (coronary artery disease) Colitis COPD (chronic obstructive pulmonary disease) COPD exacerbation Cough CVA (cerebral vascular accident) Depression Diabetes type 2, uncontrolled Dyslipidemia Fibromyalgia GERD (gastroesophageal reflux disease) HLD (hyperlipidemia) Hospital discharge follow-up HTN (hypertension) Hyperkalemia Hyperlipidemia LDL goal <100 Hyperparathyroidism Hypertension Hypothyroid IDDM (insulin dependent diabetes mellitus) Infiltrating ductal carcinoma of left breast, stage 2 Insomnia Irritable bowel Osteoporosis PAD (peripheral artery disease) Rash Reactive airways dysfunction syndrome Restrictive airway disease Seropositive rheumatoid arthritis T2DM (type 2 diabetes mellitus) Thyroid nodule Vitamin D deficiency Surgical History H/O cardiac catheterization H/O: hysterectomy History of bronchoscopy History of bunionectomy of both great toes History of colonoscopy History of esophagogastroduodenoscopy (EGD) History of lumpectomy of left breast History of pubovaginal sling History of tubal ligation Hx of endoscopy Hx of sigmoidoscopy Family History Family History Mother Diabetes HTN (hypertension) Uterus cancer Malignant tumor of head Breast cancer Father Diabetes HTN (hypertension) CVD (cardiovascular disease) Heart problem Maternal Aunt Breast cancer Brother Myocardial infarction S/P CABG x 4 Family/Other FH: mental illness Family/Other Lung cancer Other Mental health disorder Social History Social History Household Members: Family Household Members Other:: sister Housing: House Are you a primary director of managed care to a significant other at home: No Do you presently have visiting nurse or other home services: Yes (sister is processing clerk) Alcohol intake: never Patient Tobacco Use Status: Current everyday Tobacco user Tobacco use type: Cigarette Years Smoked: 50 +/- Smoked in Last 30 Days: Yes e-Cigarette/Vaping Use: Never Used Second Hand Smoke Exposure: No Use of substances other than those prescribed or required for medical reasons: No Advance Directives: Yes Advance Directives on File: Yes Advance Directives Date on File: 12/22/21 Patient : No service: No Current occupational status: disabled Current occupation: rt handed Cognitive needs: No Hearing needs: No Vision needs: Yes Physical Exam Vital Signs: Vital Signs: Last Vital Signs Temp 98.9 F 05/16/23 12:22 Pulse 90 05/16/23 12:22 Resp 19 05/16/23 12:22 BP 153/82 H 05/16/23 12:22 Pulse Ox 97 05/16/23 12:22 O2 Del Method Room Air 05/16/23 12:22 BMI result Body Mass Index 22.4 GEN: Well developed, acute distress, alert, oriented HEENT: Normocephalic, atraumatic, normal external ears, nose appears normal, no oropharyngeal edema or exudates Eyes: Normal to appearance Neck: Supple, no lymphadenopathy Respiratory: Talks in complete sentences, no respiratory distress, clear to auscultation bilaterally Cardiovascular: Regular rate and rhythm, no murmurs rubs or gallops Abdomen: Soft, nontender, nondistended, no guarding, no rebound Back: No CVA tenderness Extremities: No clubbing cyanosis or edema Neurologic: No focal neurologic deficits, cranial nerves 2-12 intact, strength is 5/5 bilaterally Skin: No rash Musculoskeletal: Reproducible chest wall tenderness, trapezius tenderness, cervical paraspinous tenderness and bilateral deltoid tenderness to palpation Course Course Course Narrative: 8-year-old female presents with chest pain, radiating to back, neck, shoulders. Her examination was unremarkable. Her cardiac enzymes are negative. Her sympt oms started approximately 6-7 hours prior to her workup. Her cardiac enzyme has been negative. However, given the fact that her chest pain was radiating to her back, previous history of vascular disease, initial concern was for aortic dissection. CT aortogram was performed which did not identify any acute aortic pathology. There are no other acute pathological findings on her CT scan as well. Her EKG was nonischemic without any ST elevations or depressions. Cardiac enzyme was negative essentially making her troponin diagnostic. Her examination had reproducible musculoskeletal pain. Most likely diagnosis, therefore is musculoskeletal pain. She received morphine which did improve her symptoms significantly. Her pain was a 9/10 initially, upon my re-evaluation, patient's pain was described as a 4/10. Upon 1 of my several re-evaluations, patient complained of increasing pain although she was much more comfortable than her initial presentation. She was given Toradol. She was also given a muscle relaxer. Patient will be discharged home with meloxicam, cyclobenzaprine. Patient is currently not taking any of her cardiac medications. She is due to follow-up with her metal inspector next week. We discussed the potential use of aspirin therapy but she preferred to wait until s he sees a metal inspector to determine if she needs to restart this medication. She did inform me that she has cardiac stents and had a myocardial infarction last year and I therefore did in fact recommend restarting her aspirin 81 mg. Medications Administered Discontinued Medications Generic Name Dose Route Start Last Admin Trade Name Freq PRN Reason Stop Dose Admin Iohexol 100 ml 05/16/23 13:15 05/16/23 13:15 Iohexol 350 Mg/Ml 100 Ml Infus..Btl IV 05/16/23 13:16 70 ml ONCE ONE Administration Morphine Sulfate 4 mg 05/16/23 11:57 05/16/23 12:16 Morphine Sulfate 4 Mg/Ml Cartridge IVPUSH 05/16/23 11:58 4 mg ONCE ONE Administration Protocol Medical Decision Making Medical Decision Making [facility] Narrative: 62-year-old female presents with chest pain radiating to neck, back and shoulders. My initial concern for this patient has been aortic dissection. I will order CT angiogram of the chest and aorta to rule out aortic dissection. Additional possible diagnoses include acute coronary syndrome. She does have a history of coronary artery disease. Will obtain an EKG, cardiac enzymes. Her symptoms started approximately 6-7 hours prior to her arrival. Her troponin and a nonischemic appearing EKG will likely be diagnostic against or for acute coronary syndrome. Her examination did find a significant amount of reproducible chest wall tenderness, trapezius tenderness, cervical paraspinous tenderness and deltoid tenderness to palpation. I do suspect predominantly patient is having musculoskeletal pain, muscle spasm, strain, strain or other possible muscular diagnosis. I doubt spinal stenosis as an etiology of her symptoms. I will provide the patient with morphine for analgesia. Differential Diagnosis Differential Diagnoses: The differential diagnosis associated with the presentation includes (See above) Admission/Observation Consideration of admission/observation: Escalation of care including admission/observation considered (Patient may warrant hospitalization of cardiac enzymes and/or CT angiogram positive for acute abnormalities) Lab Data MDM Lab Attestation statement: I reviewed the patient's lab results. (No significant acute abnormalities contributing to patient's diagnosis) 05/16/23 10:26 05/16/23 10:26 Labs: Lab Results 05/16/23 05/16/23 05/16/23 Range/Units 10:26 10:26 10:26 WBC 9.0 (4.8-10.8) X10*3/uL RBC 4.73 (4.20-5.50) X10*6/uL Hgb 13.3 (12.0-16.0) g/dl Hct 40.8 (37.0-47.0) % MCV 86.3 (80.0-98.0) fL MCH 28.1 (27.0-33.0) pg MCHC 32.6 (31.0-35.0) g/dl RDW 13.9 (11.0-16.0) % Plt Count 328 (160-400) X10*3/uL MPV 10.4 (9.4-12.3) fL Immature Gran % (Auto) 0.2 (0.0-0.4) % Neut % (Auto) 54.5 (45-73) % Lymph % (Auto) 37.5 (20-40) % [place] % (Auto) 7.1 (2-11) % Eos % (Auto) 0.4 (0-4) % Baso % (Auto) 0.3 (0-2) % Lymph # (Auto) 3.4 (1.2-4.9) X10*3/uL [place] # (Auto) 0.6 (0.1-1.2) X10*3/uL Eos # (Auto) 0.0 (0.0-0.4) X10*3/uL Baso # (Auto) 0.0 (0.0-0.2) X10*3/uL Abs Immat Gran (auto) 0.02 (0.00-0.03) X10*3/uL Absolute Neuts (auto) 4.9 (2.0-8.3) x10*3/uL Absolute Nucleated RBC 0.000 (0.0-0.012) X10*3/uL Nucleated RBC % (auto) 0.0 (0.0-0.2) /100WBC Sodium 140 (135-145) mmol/L Potassium 3.7 D (3.3-5.1) mmol/L Chloride 107 (96-108) mmol/L Carbon Dioxide 22 (22-29) mmol/L Anion Gap 15 (12-20) BUN 8 L (9-16) mg/dL Creatinine 0.78 (0.5-1.4) mg/dL Estim Creat Clear Calc 49.5 Estimated GFR > 60 Random Glucose 98 (60-115) mg/dL Calcium 9.5 (8.4-10.2) mg/dL Total Bilirubin 0.5 (0.0-1.0) mg/dL AST 15 (5-31) U/L ALT 12 (0-31) U/L Alkaline Phosphatase 61 (39-117) U/L Troponin I High Sens < 2.7 (<3.5-17.0) ng/L Total Protein 7.5 (6.5-8.0) g/dL Albumin 4.1 (3.5-5.0) g/dL Independent Interpretation I performed an independent interpretation of an: EKG (Sinus tachycardia heart rate 117, no acute ST elevations or depressions, normal intervals, nonspecific T-wave changes no evidence of right heart strain) and CT Scan (CTA chest No evidence of dissection) Radiology Impression Discussion of test interpretation with radiology: I have reviewed the radiologist's reading. Radiologist Impression: CT/CT angio chest aorta IMPRESSION: No evidence of aortic dissection or aneurysm. No pulmonary emboli are seen. ? Fleischner guidelines were followed. ? Dictated By: Haroldo Mulligan MD Signed By: <Electronically signed by Haroldo Mulligan MD in OV> 05/16/23 1416 External Record Review External record reviewed: Outpatient record (Cardiology) Prescription Management I considered prescription management with: Pain Medication Chronic Conditions Patient?s care impacted by: Other (Coronary artery disease) Critical Care Time Critical Care Time Critical Care Time: Yes Total Critical Care Time: 42 Attestation: Just over 42 minutes of critical care time spent on this patient. Time included initial evaluation, re-evaluation, management of pain, consideration of potentially life-threatening condition namely aortic dissection, medical management, interpretation and medical data, documentation, all outside of medical procedures. Discharge Plan Discharge Clinical Impression: Acute chest pain, Coronary artery disease Patient Disposition: Home, Self-Care Instructions: Chest Pain (ED), Coronary Artery Disease in Women (DC) Prescriptions: New meloxicam 15 mg tablet 15 mg PO DAILY Qty: 7 0RF cyclobenzaprine 10 mg tablet 10 mg PO TID PRN (Reason: muscle spasm) Qty: 10 0RF No Action (DME) pen needle, diabetic [Comfort EZ Pen [place]] 31 gauge x 5/16 needle See Rx Instructions .ROUTE .MEDSUPPLY Qty: 200 11RF Rx Instructions: Use 1 pen needle 6 times a day (DME) lancets [FreeStyle Lancets] 28 gauge misc See Rx Instructions .Route Qty: 100 3RF Rx Instructions: Use 1 lancet once a day insulin aspart U-100 [Novolog FlexPen U-100 Insulin] 100 unit/mL (3 mL) insulin pen 2 - 10 unit subcut TIDAC 30 Days Qty: 15 11RF Protocol: Insulin Correction Scale Less than or equal to 110 ---- Give (units): 0 111 to 150 Give (units): 0 151 to 200 Give (units): 2 201 to 250 Give (units): 4 251 to 300 Give (units): 6 301 to 350 Give (units): 8 Greater than 350 Give (units): 10 Call MD if Blood Glucose > : 350 Rx Instructions: Via sliding scale pantoprazole 40 mg tablet,delayed release (DR/EC) 40 mg PO BID 90 Days Qty: 180 0RF budesonide 0.5 mg/2 mL suspension for nebulization 0.25 mg inhalation BID 30 Days Qty: 60 3RF (DME) walker Misc See Rx Instructions .Route Qty: 1 0RF Rx Instructions: with seat trazodone 100 mg tablet 100 mg PO BEDTIME 90 Days Qty: 90 0RF insulin degludec [Tresiba FlexTouch U-100] 100 unit/mL (3 mL) insulin pen 20 unit subcut BEDTIME 90 Days Qty: 18 1RF letrozole 2.5 mg Tablet 2.5 mg PO DAILY Qty: 90 3RF albuterol sulfate [Ventolin HFA] 90 mcg/actuation HFA aerosol inhaler 1 inh inhalation QID PRN (Reason: shortness of breath or wheezing) 30 Days Qty: 18 2RF prednisone 5 mg tablet 5 mg PO DAILY Qty: 30 1RF (DME) FreeStyle Lite Strips Strip MISCELLANEOUS DAILY Qty: 100 1RF Rx Instructions: Use 1 test strip three times a day sulfasalazine 500 mg tablet 0.5 g PO BID Qty: 60 1RF Trulicity 1.5 mg/0.5 mL pen injector 1.5 mg subcut WE@0900 90 Days Qty: 6.5 2RF ipratropium-albuterol 0.5 mg-3 mg(2.5 mg base)/3 mL solution for nebulization 3 ml inhalation Q6H Qty: 180 0RF tramadol 50 mg tablet 50 mg PO Q6H PRN (Reason: pain) Qty: 20 0RF nitroglycerin 0.4 mg tablet, sublingual 0.4 mg sublingual Q5M PRN (Reason: Chest Pain) Brilinta 90 mg tablet 90 mg PO BID 90 Days Qty: 180 1RF Rx Instructions: Please fill Rx today, patient lost previous RX, fill as emergency this one time ondansetron 8 mg tablet,disintegrating 8 mg PO Q8H PRN (Reason: nausea and vomiting) 30 Days Qty: 90 0RF lubiprostone [Amitiza] 8 mcg capsule 8 mcg PO BID 90 Days Qty: 180 1RF famotidine 20 mg tablet 20 mg PO BEDTIME 90 Days Qty: 90 1RF pregabalin [Lyrica] 200 mg capsule 200 mg PO BID Qty: 60 3RF Referrals: Joseph Salmon MD [Physician] - 1 week Adela Gipson MD [Primary Care Provider] - 3 days
[2023-05-16] MEDS: Ketorolac Tromethamine 15 MG/ML VIAL IVPUSH (14:54)
[2023-05-16] MEDS: Cyclobenzaprine HCl 10 MG TABLET PO (14:54)
[2023-05-16 14:59] VITALS: BP 154/97; PULSE 81; RESP 14; TEMP 36.9; O2SAT 96
== END 2023-05-16 15:14 | disposition home or self-care (01) ==
PROVIDERS: Emergency Provider Emergency Medicine; PCP Internal Medicine
DX: R07.89 Other chest pain (principal); I25.10 Atherosclerotic heart disease of native coronary artery without angina pectoris; M54.50 Low back pain, unspecified; M54.2 Cervicalgia; F17.200 Nicotine dependence, unspecified, uncomplicated; Z71.6 Tobacco abuse counseling
CPT/HCPCS: 36415; 71046; 71275; 80053; 84484; 85025; 93005; 96374; 96375; 99284; 99285; J1885; J2270; Q9967

== ENCOUNTER → 2023-05-17 07:26 | Outpatient (BNVA) | payer MEDICARE, MEDICAID, SELFPAY ==
[2023-04-22 10:17] VITALS: BP 100/64; BP 102/48; BP 110/70; BMI 25.5
== END ==
PROVIDERS: PCP Internal Medicine; Visit Provider Internal Medicine Gastroenterology
DX: R14.0 Abdominal distension (gaseous) (principal); K21.9 Gastro-esophageal reflux disease without esophagitis; R13.10 Dysphagia, unspecified; R11.0 Nausea; R55 Syncope and collapse; E11.65 Type 2 diabetes mellitus with hyperglycemia; E55.9 Vitamin D deficiency, unspecified; F17.200 Nicotine dependence, unspecified, uncomplicated; Z87.19 Personal history of other diseases of the digestive system; Z86.19 Personal history of other infectious and parasitic diseases; Z79.4 Long term (current) use of insulin; Z79.899 Other long term (current) drug therapy
CPT/HCPCS: 99212

== ENCOUNTER 2023-05-31 08:18 | Outpatient (AMB) | payer MEDICARE, MEDICAID, SELFPAY ==
[2023-04-22 10:17] VITALS: BP 100/64; BP 102/48; BP 110/70; BMI 25.5
--- NOTE | 2023-06-03 12:49 | MHC.OFFVIS ---
Intake Intake Visit Reasons: CAPSULE ENDOSCOPY Allergies dog dander [DOGS] Allergy (Intermediate, Verified 05/23/23 09:58) Respiratory distress shellfish derived Allergy (Intermediate, Verified 05/23/23 09:58) Hives methylprednisolone Allergy (Verified 05/23/23 09:58) Rash etanercept [From Enbrel] Adverse Reaction (Intermediate, Verified 05/23/23 09:58) Facial Swelling ibuprofen [Ibuprofen] Adverse Reaction (Intermediate, Verified 05/23/23 09:58) STOMACH UPSET, abdominal pain, nausea and vomiting metformin Adverse Reaction (Intermediate, Verified 05/23/23 09:58) Diarrhea metronidazole [From FLAGYL] Adverse Reaction (Intermediate, Verified 05/23/23 09:58) Diarrhea prednisone Adverse Reaction (Intermediate, Verified 05/23/23 09:58) hallucinations, higher than 20 PFSH Medical History Allergic rhinitis Anxiety Anxiety Atherosclerotic cardiovascular disease Bipolar 1 disorder, depressed Bloody diarrhea Breast pain, right Bronchial asthma CAD (coronary artery disease) Colitis COPD (chronic obstructive pulmonary disease) COPD exacerbation Cough CVA (cerebral vascular accident) Depression Diabetes type 2, uncontrolled Dyslipidemia Fibromyalgia GERD (gastroesophageal reflux disease) HLD (hyperlipidemia) Hospital discharge follow-up HTN (hypertension) Hyperkalemia Hyperlipidemia LDL goal <100 Hyperparathyroidism Hypertension Hypothyroid IDDM (insulin dependent diabetes mellitus) Infiltrating ductal carcinoma of left breast, stage 2 Insomnia Irritable bowel Osteoporosis PAD (peripheral artery disease) Rash Reactive airways dysfunction syndrome Restrictive airway disease Seropositive rheumatoid arthritis T2DM (type 2 diabetes mellitus) Thyroid nodule Vitamin D deficiency Surgical History H/O cardiac catheterization H/O: hysterectomy History of bronchoscopy History of bunionectomy of both great toes History of colonoscopy History of esophagogastroduodenoscopy (EGD) History of lumpectomy of left breast History of pubovaginal sling History of tubal ligation Hx of endoscopy Hx of sigmoidoscopy Family History Mother Diabetes HTN (hypertension) Uterus cancer Malignant tumor of head Breast cancer Father Diabetes HTN (hypertension) CVD (cardiovascular disease) Heart problem Maternal Aunt Breast cancer Brother Myocardial infarction S/P CABG x 4 Family/Other FH: mental illness Family/Other Lung cancer Other Mental health disorder Social History Household Members: Family Household Members Other:: sister Housing: House Are you a primary career development director to a significant other at home: No Do you presently have visiting nurse or other home services: Yes (sister is deicer kit assembler) Alcohol intake: never Patient Tobacco Use Status: Current everyday Tobacco user Tobacco use type: Cigarette Years Smoked: 50 +/- e-Cigarette/Vaping Use: Never Used Second Hand Smoke Exposure: No Advance Directives Date on File: 12/22/21 service: No Current occupational status: disabled Current occupation: rt handed Cognitive needs: No Hearing needs: No Vision needs: Yes Office Procedures AMB Capsule Endoscopy Procedure Notes: Capsule endoscopy date of service: 05/31/2023 Indication: abdominal pain, nausea Findings: Lower esophagus looked normal, stomach with granular mucosa and patchy erythema consistent with chronic gastritis small bowel entered at 2 hr 36 min min. Mucosa well visualized and appeared normal, no masses, lesions or ulcers seen. cecum entered at 4 hr 44 min and colonic mucosa looked normal Conclusion: chronic gastritis, other santiago neg small bowel study Capsule Endoscopy CPT Code: 86764 - Capsule Endoscopy Assessment & Plan Assessment & Plan (1) History of Helicobacter pylori infection: Code(s): Z86.19 - Personal history of other infectious and parasitic diseases (2) Abdominal pain: Code(s): R10.9 - Unspecified abdominal pain Quality Reporting (2019) Adult ([facility] 138/01/09/69) Smoking risk assessment performed?: Yes Patient Tobacco Use Status: Current everyday Tobacco user Coding Level of Care Code Procedure Only Diagnoses History of Helicobacter pylori infection Z86.19 Abdominal pain R10.9 CPT Codes AMB Capsule Endoscopy - Capsule Endoscopy CPT Code: 14797 - Capsule Endoscopy ([id number])
== END 2023-05-31 09:05 | disposition home or self-care (01) ==
PROVIDERS: PCP Internal Medicine; Visit Provider Internal Medicine Gastroenterology
DX: R10.9 Unspecified abdominal pain (principal); R11.0 Nausea; K29.50 Unspecified chronic gastritis without bleeding; Z86.19 Personal history of other infectious and parasitic diseases
CPT/HCPCS: 91110

== ENCOUNTER → 2023-05-31 08:18 | Outpatient (BNVA) | payer MEDICARE, MEDICAID, SELFPAY ==
[2023-04-22 10:17] VITALS: BP 100/64; BP 102/48; BP 110/70; BMI 25.5
== END ==
PROVIDERS: PCP Internal Medicine; Visit Provider Internal Medicine Gastroenterology
DX: R10.9 Unspecified abdominal pain (principal); Z86.19 Personal history of other infectious and parasitic diseases
CPT/HCPCS: 91110

== ENCOUNTER 2023-06-06 13:40 | Outpatient (AMB) | payer MEDICARE, MEDICAID, SELFPAY ==
[2023-04-22 10:17] VITALS: BP 100/64; BP 102/48; BP 110/70; BMI 25.5
--- NOTE | 2023-06-06 13:49 | A.OFFPC_ITS ---
Vital Signs 06/06/23 13:50 Height 4 ft 10 in Weight 107 lb BMI 22.4 BP 110/80 Blood Pressure Location Lt brachial Position Sitting Intake Visit Reasons: physical exam Intake Note: Patient here for a physical exam Csm Consultant Required: No Accompanied by: Self / Same As Patient Allergies dog dander [DOGS] Allergy (Intermediate, Verified 06/06/23 14:02) Respiratory distress shellfish derived Allergy (Intermediate, Verified 06/06/23 14:02) Hives methylprednisolone Allergy (Verified 06/06/23 14:02) Rash etanercept [From Enbrel] Adverse Reaction (Intermediate, Verified 06/06/23 14:02) Facial Swelling ibuprofen [Ibuprofen] Adverse Reaction (Intermediate, Verified 06/06/23 14:02) STOMACH UPSET, abdominal pain, nausea and vomiting metformin Adverse Reaction (Intermediate, Verified 06/06/23 14:02) Diarrhea metronidazole [From FLAGYL] Adverse Reaction (Intermediate, Verified 06/06/23 14:02) Diarrhea prednisone Adverse Reaction (Intermediate, Verified 06/06/23 14:02) hallucinations, higher than 20 Medication List - Last Reconciled 06/06/23 by Adela Wasserman MD aspirin 81 mg PO DAILY bisacodyl (Dulcolax (bisacodyl)) 10 mg (2 x 5 mg) PO ONCE 2 days blood sugar diagnostic (FreeStyle Lite Strips) Use 1 test strip three times a day budesonide 0.25 mg inhalation BID 30 days carisoprodol (Soma) 250 mg PO TID PRN dulaglutide (Trulicity) 1.5 mg (0.5 mL) subcut WE@0900 90 days famotidine 20 mg PO BEDTIME 90 days insulin degludec (Tresiba FlexTouch U-100 insulin) 20 units (0.2 mL) subcut BEDTIME 90 days ipratropium-albuterol 0.5 mg-3 mg(2.5 mg base)/3 mL 3 mL inhalation Q6H lancets (FreeStyle Lancets) Use 1 lancet once a day letrozole 2.5 mg PO DAILY lubiprostone (Amitiza) 8 mcg PO BID 90 days nitroglycerin 0.4 mg sublingual Q5M PRN Novolog FlexPen U-100 Insulin (insulin aspart U-100) 2 - 10 units See Protocol subcut TIDAC 30 days NS ondansetron 8 mg PO Q8H PRN 30 days pantoprazole 40 mg PO BID 90 days pen needle, diabetic (Comfort EZ Pen [place]) Use 1 pen needle 6 times a day polyethylene glycol 3350 (Miralax) 17 grams PO DAILY 1 day prednisone 5 mg PO DAILY pregabalin (Lyrica) 200 mg PO BID ticagrelor (Brilinta) 90 mg PO BID 90 days tramadol 50 mg PO Q6H PRN trazodone 100 mg PO BEDTIME 90 days Ventolin HFA 90 mcg/actuation (albuterol sulfate) 1 inh inhalation QID PRN 30 days NS walker with seat Tobacco use date assessed: 12/17/22 Dental Screening Dental Screen Date: 06/06/23 Did you have a dental visit in the last 12 months?: Yes Did you have a dental problem in the last 6 months where you did not have access to dental care?: No Was dental information given to patient?: Patient has dentist HPI HPI Comments History of Present Illness Details This is a 63 year female with diabetes mellitus type 2 on long-term current use of insulin, COPD, non STEMI and bipolar disorder that comes for her physical exam. A1c within goal. COPD is stable with inhalers and follow by pulmonology. Had non STEMI in 2021 and continues to be on aspirin and Brilinta. Follows up with Cardiology. Bipolar disorder stable. Last mammogram was September 2022. Has history of breast cancer on letrozole and follow by Hematology-Oncology. Last colonoscopy was 2022. Had hysterectomy therefore no need for Pap smears. No chest pain or shortness of breath. Complains of diffuse joint pain and this is follow by Rheumatology. [facility] Medical History (Updated 06/06/23 @ 14:25 by Adela Wasserman MD) Allergic rhinitis Anxiety Anxiety Atherosclerotic cardiovascular disease Bipolar 1 disorder, depressed Bloody diarrhea Breast pain, right Bronchial asthma CAD (coronary artery disease) Colitis COPD (chronic obstructive pulmonary disease) COPD exacerbation Cough CVA (cerebral vascular accident) Depression Diabetes type 2, uncontrolled Dyslipidemia Fibromyalgia GERD (gastroesophageal reflux disease) HLD (hyperlipidemia) Hospital discharge follow-up HTN (hypertension) Hyperkalemia Hyperlipidemia LDL goal <100 Hyperparathyroidism Hypertension Hypothyroid IDDM (insulin dependent diabetes mellitus) Infiltrating ductal carcinoma of left breast, stage 2 Insomnia Irritable bowel Osteoporosis PAD (peripheral artery disease) Rash Reactive airways dysfunction syndrome Restrictive airway disease Seropositive rheumatoid arthritis T2DM (type 2 diabetes mellitus) Thyroid nodule Vitamin D deficiency Surgical History H/O cardiac catheterization H/O: hysterectomy History of bronchoscopy History of bunionectomy of both great toes History of colonoscopy History of esophagogastroduodenoscopy (EGD) History of lumpectomy of left breast History of pubovaginal sling History of tubal ligation Hx of endoscopy Hx of sigmoidoscopy Family History Mother Diabetes HTN (hypertension) Uterus cancer Malignant tumor of head Breast cancer Father Diabetes HTN (hypertension) CVD (cardiovascular disease) Heart problem Maternal Aunt Breast cancer Brother Myocardial infarction S/P CABG x 4 Family/Other FH: mental illness Family/Other Lung cancer Other Mental health disorder Social History Household Members: Family Household Members Other:: sister Housing: House Are you a primary healthcare account manager to a significant other at home: No Do you presently have visiting nurse or other home services: Yes (sister is guitar teacher) Alcohol intake: never Patient Tobacco Use Status: Current everyday Tobacco user Tobacco use type: Cigarette Years Smoked: 50 +/- e-Cigarette/Vaping Use: Never Used Second Hand Smoke Exposure: No Advance Directives Date on File: 12/22/21 service: No Current occupational status: disabled Current occupation: rt handed Cognitive needs: No Hearing needs: No Vision needs: Yes Questionnaire Thrive Questionnaire Date Thrive assessed: 12/17/22 FLAVIA-7 AMB Questionnaire FLAVIA-7 Date FLAVIA - 7 assessed: 12/17/22 Source: Developed by Drs. Hernandez Norris, Gissell Solorzano, Gilmar Szymanski and colleagues, with an educational chris from [employer]. Review of Systems Const All systems reviewed & are unremarkable except as noted in HPI and below Eyes Reports no additional complaints, Denies change in vision and Denies other visual disturbances Card Denies chest pain at rest, Denies chest pain with activity, Denies edema, Denies irregular heart rhythm, Denies claudication, Denies dyspnea, Denies dyspnea on exertion, Denies orthopnea, Denies paroxysmal nocturnal dyspnea and Denies slow heart rate Resp Denies cough, Denies dyspnea and Denies dyspnea on exertion GI Denies abdominal pain, Denies change in bowel habits, Denies excessive flatus, Denies nausea and Denies vomiting Denies urinary incontinence, Denies urinary hesitancy and Denies urinary urgency Musc Denies abnormal gait, Denies atrophy, Denies deformity, Reports arthralgias and Denies limited range of motion Skin/Breast Denies bleeding lesions, Denies changing lesions and Denies rash Neuro Denies abnormal gait and Denies lack of coordination Physical exam (Primary Care) Vital Signs: Last Vital Signs BP 110/80 06/06/23 13:50 BMI result Body Mass Index 22.4 Tobacco/Smoking Status: Tobacco use Status Tobacco use date assessed 12/17/22 06/06/23 13:57 Patient Tobacco Use Status Current everyday Tobacco 06/06/23 13:57 Tobacco use type Cigarette 06/06/23 13:57 e-Cigarette/Vaping Use Never Used 06/06/23 13:57 Thrive Assessment: Date of Thrive Assessment Date Thrive assessed 12/17/22 06/06/23 13:57 Const Orientation/consciousness: patient oriented x3 HENMT Head: Yes normal to inspection, Yes normocephalic and Yes atraumatic Ears: external ears normal Eyes General: appearance normal, both eyes and all related structures Eyelids: Yes eyelids normal Conjunctivae: conjunctivae normal Neck Neck: Yes normal visual inspection and Yes supple Resp Effort & Inspection: normal respiratory effort Auscultation: clear to auscultation bilaterally Cardio Jugular venous distension: no JVD Rate: regular rate Rhythm: regular rhythm Heart sounds: S1 normal heart sound present and S2 normal heart sound present GI Inspection: Yes normal to inspection Palpation (GI): Soft to palpation and nontender Auscultation: normal bowel sounds Skin General skin exam: no rashes or lesions noted Neuro General: patient oriented x3 and no focal motor deficits Extrem General: Yes full ROM Psych Appearance: grossly normal Results AMB Hemoglobin A1c AMB Hemoglobin A1c 6.8 % Last Edit by KENNY Coronel on 06/06/23 14:0 1 Results Reviewed Results Reviewed: Laboratory Last Values Hgb A1c (Clinic) 6.8 % (4.0-6.0) H 06/06/23 13:49 Assessment and Plan Assessment & Plan (1) Physical exam: Code(s): Z00.00 - Encounter for general adult medical examination without abnormal findings Plan: Repeat in a year (2) COPD (chronic obstructive pulmonary disease): Comment: This 62 years old female has been a long-time smoker. She does have moderately severe chronic obstructive pulmonary disease. TX: DuoNeb updrafts Q 6 hours, Q 6 hours W/A Albuterol updrafts Q 4-6 Hrs PRN And Albuterol HFA 2 puffs q.6 hours p.r.n. for outdoors. Prednisone 5 mg a Day Azithromycin 250 mg ,three days a week(M,W,F ) Code(s): J44.9 - Chronic obstructive pulmonary disease, unspecified Qualifiers: COPD type: unspecified COPD Qualified Code(s): J44.9 - Chronic obstructive pulmonary disease, unspecified Plan: Continue longstanding inhaler (3) T2DM (type 2 diabetes mellitus): Code(s): E11.9 - Type 2 diabetes mellitus without complications Qualifiers: Diabetes mellitus vice president business & corporate development insulin use: with vice president business & corporate development use Diabetes mellitus complication status: with hyperglycemia Qualified Code(s): E11.65 - Type 2 diabetes mellitus with hyperglycemia; Z79.4 - residential (current) use of insulin Plan: Continue insulin. A1c goal is equal or less than 7%. (4) digital marketing project manager (current) use of insulin: Code(s): Z79.4 - residential (current) use of insulin Plan: Continue insulin. Follow-up with endocrinology. (5) Bipolar 1 disorder, depressed: Code(s): F31.9 - Bipolar disorder, unspecified Plan: Patient declines treatment now. She is stable. (6) NSTEMI (non-ST elevated myocardial infarction): Code(s): I21.4 - Non-ST elevation (NSTEMI) myocardial infarction Plan: Continue aspirin and Brilinta. Follow-up with Cardiology. Orders: Orders Vitamin B12 and Folate Today E53.8 - Deficiency of other specified B group vitamins Comprehensive Rodney. Panel Fast Today Z79.4 - digital marketing project manager (current) use of insulin Lipid Panel Today E78.5 - Hyperlipidemia, unspecified Vitamin D 25-OH Total Today E55.9 - Vitamin D deficiency, unspecified Microalbumin, Random (w Creat) Today E11.9 - Type 2 diabetes mellitus without complications AMB Hemoglobin A1c Today E11.65 - Type 2 diabetes mellitus with hyperglycemia Coding Level of Care Code Est Pt Prev Care 40-64y(75109) Diagnoses Physical exam Z00.00 COPD (chronic obstructive pulmonary disease) J44.9 COPD type: unspecified COPD T2DM (type 2 diabetes mellitus) E11.65; Z79.4 Diabetes mellitus jail insulin use: with jail use Diabetes mellitus complication status: with hyperglycemia residential (current) use of insulin Z79.4 Bipolar 1 disorder, depressed F31.9 NSTEMI (non-ST elevated myocardial infarction) I21.4 Time Spent (min) 38
[2023-06-06 13:50] VITALS: BP 110/80; BMI 22.4
== END 2023-06-06 14:29 | disposition home or self-care (01) ==
PROVIDERS: Visit Provider Internal Medicine
DX: Z00.00 Encounter for general adult medical examination without abnormal findings (principal); F31.9 Bipolar disorder, unspecified; J44.9 Chronic obstructive pulmonary disease, unspecified; E11.65 Type 2 diabetes mellitus with hyperglycemia; Z79.4 Long term (current) use of insulin; I21.4 Non-ST elevation (NSTEMI) myocardial infarction
CPT/HCPCS: 83036; 99396

== ENCOUNTER 2023-06-10 09:08 | Outpatient (AMB) | payer MEDICARE, MEDICAID, SELFPAY ==
[2023-04-22 10:17] VITALS: BP 100/64; BP 102/48; BP 110/70; BMI 25.5
[2023-06-10 09:12] VITALS: BP 120/70; PULSE 126; BMI 22.6
--- NOTE | 2023-06-10 09:12 | A.OFFVIS_ITS ---
Intake Vital Signs 06/10/23 09:12 Height 4 ft 10 in Weight 108 lb 0.424 oz BMI 22.6 BP 120/70 Blood Pressure Location Lt brachial Position Sitting Pulse 126 H Intake Visit Reasons: 6 mth fu Intake Note: 6 month f/u some palpitations Linoleum Layer Required: No Allergies dog dander [DOGS] Allergy (Intermediate, Verified 06/10/23 09:20) Respiratory distress shellfish derived Allergy (Intermediate, Verified 06/10/23 09:20) Hives methylprednisolone Allergy (Verified 06/10/23 09:20) Rash etanercept [From Enbrel] Adverse Reaction (Intermediate, Verified 06/10/23 09:20) Facial Swelling ibuprofen [Ibuprofen] Adverse Reaction (Intermediate, Verified 06/10/23 09:20) STOMACH UPSET, abdominal pain, nausea and vomiting metformin Adverse Reaction (Intermediate, Verified 06/10/23 09:20) Diarrhea metronidazole [From FLAGYL] Adverse Reaction (Intermediate, Verified 06/10/23 09:20) Diarrhea prednisone Adverse Reaction (Intermediate, Verified 06/10/23 09:20) hallucinations, higher than 20 Medication List - Last Reconciled 06/10/23 by Joseph Salmon MD aspirin 81 mg PO DAILY blood sugar diagnostic (FreeStyle Lite Strips) Use 1 test strip three times a day budesonide 0.25 mg inhalation BID 30 days carisoprodol (Soma) 250 mg PO TID PRN dulaglutide (Trulicity) 1.5 mg (0.5 mL) subcut WE@0900 90 days famotidine 20 mg PO BEDTIME 90 days insulin degludec (Tresiba FlexTouch U-100 insulin) 20 units (0.2 mL) subcut BEDTIME 90 days ipratropium-albuterol 0.5 mg-3 mg(2.5 mg base)/3 mL 3 mL inhalation Q6H lancets (FreeStyle Lancets) Use 1 lancet once a day letrozole 2.5 mg PO DAILY lubiprostone (Amitiza) 8 mcg PO BID 90 days nitroglycerin 0.4 mg sublingual Q5M PRN Novolog FlexPen U-100 Insulin (insulin aspart U-100) 2 - 10 units See Protocol subcut TIDAC 30 days NS ondansetron 8 mg PO Q8H PRN 30 days pantoprazole 40 mg PO BID 90 days pen needle, diabetic (Comfort EZ Pen [place]) Use 1 pen needle 6 times a day prednisone 5 mg PO DAILY pregabalin (Lyrica) 200 mg PO BID ticagrelor (Brilinta) 90 mg PO BID 90 days tramadol 50 mg PO Q6H PRN trazodone 100 mg PO BEDTIME 90 days Ventolin HFA 90 mcg/actuation (albuterol sulfate) 1 inh inhalation QID PRN 30 days NS walker with seat HPI HPI Comments History of Present Illness Details 63-year-old female who has known history of coronary disease with previous PCI to left circumflex artery in December 2021, hypertension, hyperlipidemia, type 2 diabetes, COPD and fibromyalgia. She is returning for follow-up. She was seen last time with chest discomfort. There was some dyspnea on exertion also. She underwent stress echocardiogram which she was able to exercise to 7 metabolic equivalents without any EKG changes or wall motion abnormalities. 11/2022: Unfortunately had influenza in October and is recovering from that. Still having significant shortness of breath and continues to have mild wheezes. She just finished her prednisone taper yesterday. She is having upper abdominal pain. Denying any chest discomfort on follow-up. No peripheral edema. No obvious signs of heart failure. 06/10/23: She returns for follow-up. She is saying she has been experiencing significant shortness of breath and has been using the inhaler and nebulizers quite frequently. She also had some chest pain and went to emergency department and was ruled out. She has stress testing recently which was normal. She is saying that depending on whether her breathing changes. If it is humid and hot outside she gets really out of breath. She is still smoking 2 cigarettes per day. Overall from cardiovascular point of view she has stable angina and mostly has shortness of breath due to COPD. [facility] Medical History Allergic rhinitis Anxiety Anxiety Atherosclerotic cardiovascular disease Bipolar 1 disorder, depressed Bloody diarrhea Breast pain, right Bronchial asthma CAD (coronary artery disease) Colitis COPD (chronic obstructive pulmonary disease) COPD exacerbation Cough CVA (cerebral vascular accident) Depression Diabetes type 2, uncontrolled Dyslipidemia Fibromyalgia GERD (gastroesophageal reflux disease) HLD (hyperlipidemia) Hospital discharge follow-up HTN (hypertension) Hyperkalemia Hyperlipidemia LDL goal <100 Hyperparathyroidism Hypertension Hypothyroid IDDM (insulin dependent diabetes mellitus) Infiltrating ductal carcinoma of left breast, stage 2 Insomnia Irritable bowel Osteoporosis PAD (peripheral artery disease) Rash Reactive airways dysfunction syndrome Restrictive airway disease Seropositive rheumatoid arthritis T2DM (type 2 diabetes mellitus) Thyroid nodule Vitamin D deficiency Surgical History H/O cardiac catheterization H/O: hysterectomy History of bronchoscopy History of bunionectomy of both great toes History of colonoscopy History of esophagogastroduodenoscopy (EGD) History of lumpectomy of left breast History of pubovaginal sling History of tubal ligation Hx of endoscopy Hx of sigmoidoscopy Family History Mother Diabetes HTN (hypertension) Uterus cancer Malignant tumor of head Breast cancer Father Diabetes HTN (hypertension) CVD (cardiovascular disease) Heart problem Maternal Aunt Breast cancer Brother Myocardial infarction S/P CABG x 4 Family/Other FH: mental illness Family/Other Lung cancer Other Mental health disorder Social History Household Members: Family Household Members Other:: sister Housing: House Are you a primary rental boats caretaker to a significant other at home: No Do you presently have visiting nurse or other home services: Yes (sister is political science instructor) Alcohol intake: never Patient Tobacco Use Status: Current everyday Tobacco user Tobacco use type: Cigarette Years Smoked: 50 +/- e-Cigarette/Vaping Use: Never Used Second Hand Smoke Exposure: No Advance Directives Date on File: 12/22/21 service: No Current occupational status: disabled Current occupation: rt handed Cognitive needs: No Hearing needs: No Vision needs: Yes Review of Systems ENT Reports dizziness Card Denies chest pain, Denies chest pain at rest, Denies chest pain with activity, Denies rapid heart rate, Denies pedal edema, Denies edema, Denies leg edema, Denies lightheadedness, Denies palpitations, Denies dyspnea, Denies dyspnea on exertion and Denies orthopnea Resp Denies cough, Denies dyspnea and Denies dyspnea on exertion GI Denies hematochezia and Denies change in stool character Musc Denies abnormal gait, Reports limited range of motion, Reports muscle cramps, Denies muscle weakness, Denies numbness, Denies radiating pain into limb, Denies stiffness and Denies tingling Neuro Denies abnormal gait, Reports dizziness, Denies numbness and Denies tingling Endo Denies palpitations Physical Exam Vital Signs: Last Vital Signs Pulse 126 H 06/10/23 09:12 BP 120/70 06/10/23 09:12 BMI result Body Mass Index 22.6 GENERAL APPEARANCE: in no acute distress, pleasant. NECK: no carotid bruit, no jugular venous distention. SKIN: no suspicious lesions, warm and dry. HEART: no murmurs, regular rate and rhythm. Tachycardic. LUNGS: Lungs clear to auscultation. ABDOMEN: soft. EXTREMITIES: no edema. PERIPHERAL PULSES: equal. NEUROLOGIC: No gross deficits, AAO X 3 Office Procedures EKG Details: Sinus tachycardia 126 beats per minute, rightward axis, left atrial enlargement, nonspecific ST changes, QTC 451 milliseconds. [id number], Complete Assessment & Plan Assessment & Plan (1) Stable angina: Code(s): I20.8 - Other forms of angina pectoris (2) Sinus tachycardia: Code(s): R00.0 - Tachycardia, unspecified Plan 63-year-old female with known coronary disease with previous circumflex PCI in December 2021 presenting for follow-up. She has recent stress echocardiogram which was normal. She has mostly shortness of breath due to COPD. She continues to smoke 2 cigarettes per day. I have advised her to stop the Brilinta for now. Continue baby aspirin as before. She has stable angina in we are referring her for cardiac rehabilitation for stable angina. She will follow with Dr. Baum for the lung issues. I have advised her to be careful with excessive use of inhalers/nebulizers because she is using them more than she is supposed to. She has sinus tachycardia due to beta agonists. Thank you for allowing me to participate in the care of your patient. Please feel free to contact me if you have any questions. Orders: Orders Cardiac Rehab Today I20.8 - Other forms of angina pectoris Medications: Discontinued ticagrelor (Brilinta) Please fill Rx today, patient lost previous RX, fill as emergency this one time Discontinued Reason: Doctor's Order 90 mg PO BID 60 tabs 1RF 90 days Z95.5 - Presence of coronary angioplasty implant and graft Quality Reporting (2019) Adult ([facility] 138/01/09/69) Smoking risk assessment performed?: Yes Patient Tobacco Use Status: Current everyday Tobacco user Coding Level of Care Code Est Pt Level 4 (68062) Diagnoses Stable angina I20.8 Sinus tachycardia R00.0 CPT Codes EKG - CPT: 79490-[id number], Complete ([id number])
== END 2023-06-10 09:49 | disposition home or self-care (01) ==
PROVIDERS: Visit Provider Internal Medicine Cardiovascular Disease
DX: I20.8 Other forms of angina pectoris (principal); R00.0 Tachycardia, unspecified
CPT/HCPCS: 93010; 99214

== ENCOUNTER → 2023-06-10 09:08 | Outpatient (BNVA) | payer MEDICARE, MEDICAID, SELFPAY ==
[2023-04-22 10:17] VITALS: BP 100/64; BP 102/48; BP 110/70; BMI 25.5
== END ==
PROVIDERS: Visit Provider Internal Medicine Cardiovascular Disease
DX: I20.8 Other forms of angina pectoris (principal); R00.0 Tachycardia, unspecified
CPT/HCPCS: 93005; 99212

== ENCOUNTER 2023-06-13 07:59 | Outpatient (REF) | payer MEDICARE, MEDICAID, SELFPAY ==
[2023-04-22 10:17] VITALS: BP 100/64; BP 102/48; BP 110/70; BMI 25.5
[2023-06-13 09:00] LABS: Estimated Average Glucose 140 mg/dL; Hemoglobin A1c % 6.5 %
[2023-06-13 09:20] LABS: Creatinine Urine 218.24 mg/dL
[2023-06-13 09:22] LABS: Alanine Aminotransferase 16 U/L (0-31); Albumin Level 3.9 g/dL (3.5-5.0); Alkaline Phosphatase 66 U/L (39-117); Anion Gap 16 (12-20); Aspartate Amino Transferase 12 U/L (5-31); Bilirubin Total 0.2 mg/dL (0.0-1.0); Blood Urea Nitrogen 14 mg/dL (9-16); Calcium 8.9 mg/dL (8.4-10.2); Carbon Dioxide 21 mmol/L (22-29); Chloride 108 mmol/L (96-108); Cholesterol 180 mg/dL; Estimated Glomerular Filt Rate > 60; Glucose Fasting 104 mg/dL (60-99); Glucose Random 102 mg/dL (60-115); HDL Cholesterol 37 mg/dL; LDL Cholesterol Calculated 102 mg/dl; Potassium 4.1 mmol/L (3.3-5.1); Sodium 141 mmol/L (135-145); Triglycerides 206 mg/dL
[2023-06-13 09:36] LABS: Vitamin D 25-OH Total 40.8 ng/mL (>30)
[2023-06-13 09:48] LABS: Folate 4.1 ng/mL (> or = 4.0); Vitamin B12 266 pg/mL (200-900)
== END 2023-06-13 08:00 | disposition home or self-care (01) ==
LOC: HO.LAB 07:59
PROVIDERS: Internal Medicine; Absent Provider Internal Medicine Medical Oncology; PCP Internal Medicine; Visit Provider Internal Medicine
DX: E11.65 Type 2 diabetes mellitus with hyperglycemia (principal); E78.5 Hyperlipidemia, unspecified; E53.8 Deficiency of other specified B group vitamins; E55.9 Vitamin D deficiency, unspecified; Z79.4 Long term (current) use of insulin
CPT/HCPCS: 36415; 80053; 80061; 82043; 82306; 82607; 82746; 83036

== ENCOUNTER 2023-06-17 13:25 | Outpatient (AMB) | payer MEDICARE, MEDICAID, SELFPAY ==
[2023-04-22 10:17] VITALS: BP 100/64; BP 102/48; BP 110/70; BMI 25.5
[2023-06-17 13:34] VITALS: BP 132/68; PULSE 106; TEMP 36.9; O2SAT 96; BMI 22.2
--- NOTE | 2023-06-17 13:34 | MHC.OFFVIS ---
Intake Vital Signs 06/17/23 13:34 Height 4 ft 10 in Weight 106 lb 4.205 oz BMI 22.2 BP 132/68 Blood Pressure Location Lt brachial Position Sitting Pulse 106 H Pulse Source Pulse Oximeter Temp 98.4 F Temp Source Skin Pulse Oximetry (%) 96 Intake Visit Reasons: JOINT PAIN Intake Note: Pt seen today for joint pain follow up. Has been off the sulfasalazine for approx 1 month. Reports increased joint pain. States she can tell the difference between joint pain and muscle pain. 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: No Accompanied by: Self / Same As Patient Allergies dog dander [DOGS] Allergy (Intermediate, Verified 06/17/23 13:46) Respiratory distress shellfish derived Allergy (Intermediate, Verified 06/17/23 13:46) Hives methylprednisolone Allergy (Verified 06/17/23 13:46) Rash etanercept [From Enbrel] Adverse Reaction (Intermediate, Verified 06/17/23 13:46) Facial Swelling ibuprofen [Ibuprofen] Adverse Reaction (Intermediate, Verified 06/17/23 13:46) STOMACH UPSET, abdominal pain, nausea and vomiting metformin Adverse Reaction (Intermediate, Verified 06/17/23 13:46) Diarrhea metronidazole [From FLAGYL] Adverse Reaction (Intermediate, Verified 06/17/23 13:46) Diarrhea prednisone Adverse Reaction (Intermediate, Verified 06/17/23 13:46) hallucinations, higher than 20 Medication List - Last Reconciled 06/17/23 by Frederick Nguyen MD aspirin 81 mg PO DAILY azithromycin 250 mg PO 3XW blood sugar diagnostic (FreeStyle Lite Strips) Use 1 test strip three times a day budesonide 0.25 mg inhalation BID 30 days lwlmtpjbyh-pojmrafdhhzmy-qbyt 50-325-40 mg 1 tab PO Q6H PRN carisoprodol (Soma) 250 mg PO TID PRN codeine-guaifenesin 10-100 mg/5 mL 10 mL PO Q4-6H PRN cyclobenzaprine mg PO dulaglutide (Trulicity) 1.5 mg (0.5 mL) subcut WE@0900 90 days famotidine 20 mg PO BEDTIME 90 days insulin degludec (Tresiba FlexTouch U-100 insulin) 20 units (0.2 mL) subcut BEDTIME 90 days ipratropium bromide 2.5 mL inhalation Q6H PRN ipratropium-albuterol 0.5 mg-3 mg(2.5 mg base)/3 mL 3 mL inhalation Q6H lancets (FreeStyle Lancets) Use 1 lancet once a day letrozole 2.5 mg PO DAILY levalbuterol tartrate 45 mcg/actuation 2 puffs inhalation Q4-6H PRN 30 days lubiprostone (Amitiza) 8 mcg PO BID 90 days nitroglycerin 0.4 mg sublingual Q5M PRN Novolog FlexPen U-100 Insulin (insulin aspart U-100) 2 - 10 units See Protocol subcut TIDAC 30 days NS ondansetron 8 mg PO Q8H PRN 30 days pantoprazole 40 mg PO BID 90 days pen needle, diabetic (Comfort EZ Pen [place]) Use 1 pen needle 6 times a day prednisone 5 mg PO DAILY pregabalin (Lyrica) 200 mg PO BID tramadol 50 mg PO Q6H PRN trazodone 100 mg PO BEDTIME 90 days Ventolin HFA 90 mcg/actuation (albuterol sulfate) 1 inh inhalation QID PRN 30 days NS walker with seat HPI HPI Comments History of Present Illness Details The patient returns for evaluation of her rheumatoid arthritis and fibromyalgia. At her last visit last month I had stopped her sulfasalazine. She was getting headaches and nausea. With the stoppage of that medicine she has felt better. She still has significant joint pain at times, this tends to be an episodic phenomena. She describes episodes of pain at the base of her thumbs sometimes involving some swelling also up into the 2nd MCP joint and the wrist. These last a day or 2 and then subside. She remains on Lyrica 200 mg twice a day, prednisone 5 mg daily, and occasional carisoprodol or cyclobenzaprine. She was in in the ER with some chest pain. She did see Cardiology and she says further testing is planned but does not know exactly what has been proposed. [facility] Medical History Allergic rhinitis Anxiety Anxiety Atherosclerotic cardiovascular disease Bipolar 1 disorder, depressed Bloody diarrhea Breast pain, right Bronchial asthma CAD (coronary artery disease) Colitis COPD (chronic obstructive pulmonary disease) COPD exacerbation Cough CVA (cerebral vascular accident) Depression Diabetes type 2, uncontrolled Dyslipidemia Fibromyalgia GERD (gastroesophageal reflux disease) HLD (hyperlipidemia) Hospital discharge follow-up HTN (hypertension) Hyperkalemia Hyperlipidemia LDL goal <100 Hyperparathyroidism Hypertension Hypothyroid IDDM (insulin dependent diabetes mellitus) Infiltrating ductal carcinoma of left breast, stage 2 Insomnia Irritable bowel Osteoporosis PAD (peripheral artery disease) Rash Reactive airways dysfunction syndrome Restrictive airway disease Seropositive rheumatoid arthritis T2DM (type 2 diabetes mellitus) Thyroid nodule Vitamin D deficiency Surgical History H/O cardiac catheterization H/O: hysterectomy History of bronchoscopy History of bunionectomy of both great toes History of colonoscopy History of esophagogastroduodenoscopy (EGD) History of lumpectomy of left breast History of pubovaginal sling History of tubal ligation Hx of endoscopy Hx of sigmoidoscopy Family History Mother Diabetes HTN (hypertension) Uterus cancer Malignant tumor of head Breast cancer Father Diabetes HTN (hypertension) CVD (cardiovascular disease) Heart problem Maternal Aunt Breast cancer Brother Myocardial infarction S/P CABG x 4 Family/Other FH: mental illness Family/Other Lung cancer Other Mental health disorder Social History Household Members: Family Household Members Other:: sister Housing: House Are you a primary health care recruiter to a significant other at home: No Do you presently have visiting nurse or other home services: Yes (sister is material handler) Alcohol intake: never Patient Tobacco Use Status: Current everyday Tobacco user Tobacco use type: Cigarette Years Smoked: 50 +/- e-Cigarette/Vaping Use: Never Used Second Hand Smoke Exposure: No Advance Directives Date on File: 12/22/21 service: No Current occupational status: disabled Current occupation: rt handed Cognitive needs: No Hearing needs: No Vision needs: Yes Review of Systems Const Details: Negative for appetite change, weight change, fever, chills, malaise and fatigue Card Details: Negative chest pain, edema and syncope Resp Details: She has a baseline cough and shortness of breath. She remains on azathioprine 3 times a week and 5 mg daily prednisone as well as inhalers. GI Details: Negative indigestion/heartburn, nausea, abdominal pain, bowel changes, diarrhea, constipation and bloody stool. Endo Details: Negative for polyuria and polydypsia Adarsh/Lymph Details: Negative for excessive bruising or bleeding. Physical Exam Vital Signs: Last Vital Signs Temp 98.4 F 06/17/23 13:34 Pulse 106 H 06/17/23 13:34 BP 132/68 06/17/23 13:34 Pulse Ox 96 06/17/23 13:34 BMI result Body Mass Index 22.2 APPEARANCE: Patient in no acute distress EYES no redness, pupils equal and reactive to light, eyelids normal Cervical Spine:.? Mild pain with extremes of motion.? Some cervical muscle tenderness. Thoracic Spine:.? No scoliosis.? No tenderness on palpation. Lumbar Spine:.? Alignment normal.? Mild lumbar pain with full flexion.? No tenderness. Chest Wall:? There is no tenderness today. No redness or swelling. Hands:? Right:? Normal pain-free range of motion.? There is some slight tenderness without swelling at the 5th MCP joint.? There is some minimal bony enlargement at the thumb IP and thumb CMC joint without tenderness.? There is mild tenderness across the flexor tendons without any swelling or triggering.? No sensory loss or thenar atrophy.? Left: Bony enlargement and tenderness at the base of the thumb. Normal pain-free range of motion without tenderness, swelling, increased warmth or erythema.? Some mild flexor tendon tenderness without triggering is evident.? No thenar atrophy or sensory loss. Wrists:.? Slight pain with flexion extension at 80 degrees with some minimal tenderness.? No swelling, increased warmth or erythema. Elbows:. Normal pain-free range of motion with mild lateral epicondylar tenderness.? Over the joint space there is no swelling, increased warmth or erythema. Shoulders:.?? Full range of motion without pain. No tenderness, weakness, swelling, increased warmth or erythema. Hips:.? Full range of motion without pain. Hip bursa:.? Mild trochanteric tenderness. Knees:.?? Normal pain-free range of motion with mild patellofemoral crepitus.? There is some medial compartment tenderness without effusion, soft tissue swelling, increased warmth or erythema.? Ankles:.? Normal pain-free range of motion with slight medial and lateral tenderness but no swelling, increased warmth or erythema. Feet:.? Normal pain-free range of motion with mild 1st MTP bony enlargement.? However there is no tenderness in the instep or MTP joints.? The toes have no tenderness, swelling, increased warmth or erythema.? There does not appear to be any sensory loss in the feet. Tender points:.? Mild tenderness to digital palpation at the occiput, trapezius, second rib, lateral epicondyle, knees, greater trochanter and gluteal area bilaterally. Results Reviewed Results Reviewed: Laboratory Tests 05/10/23 05/10/23 05/16/23 10:20 10:20 10:26 WBC 9.0 Hgb 13.3 ESR 11 Creatinine AST ALT C-Reactive Protein 0.35 06/13/23 08:18 WBC Hgb ESR Creatinine 0.78 AST 12 ALT 16 C-Reactive Protein Assessment & Plan Assessment & Plan (1) Fibromyalgia: Code(s): M79.7 - Fibromyalgia (2) Seropositive rheumatoid arthritis: Comment: [place]: 04/2021- 06/2022- stopped due to severe COPD requiring long standing azithromycin Plaquenil: approx. 02/2021-May 2021 self stopped Enbrel: approx. 02/2021 ordered after cleared for hep A, stopped due to allergy Sulfasalazine: approx. 02/2019- 02/2021 - restarted 09/27/2022 - present Methorexate: approx. 11/2016-12/2018 started in [facility] [place]. Diagnosed with breast CA so methotrexate discontinued. Changed to sulfsalazine 500mg 2 tabs BID to prevent lung fibrosis as patient was receiving radiation therapy for her breast CA. Completed Radiation therapy February 2019. OnTamoxifen but had side effects so was started on Letrozole in May 2019. Xeljanz: approx. 03/2018-04/2018 Cimzia: aprrox.05/2017- did not take Humira: dates unknown Leflunomide: many years ago, then approx. 08/2020-02/2021 Diagnosed 25 years ago Code(s): M05.9 - Rheumatoid arthritis with rheumatoid factor, unspecified Plan Rheumatoid arthritis with a few tender joints but no significant soft tissue swelling. The acute phase reactants when last checked were normal. I suspect the patient does have some osteoarthritis in her hands that may occasionally flare-up but nothing looks like active rheumatoid arthritis currently. Additionally she has many tender points consistent with some underlying fibromyalgia. She has had numerous attempts at therapy in the past with immuno modulatory drugs. Now that she has pretty severe COPD with frequent infections I think use of those drugs is more problematic than their potential benefit. She should use topical diclofenac gel on the hands when needed and acetaminophen. She will continue with the Lyrica as above. A follow-up in about 4 months is recommended. Quality Reporting (2019) Adult ([facility] ) Smoking risk assessment performed?: Yes Patient Tobacco Use Status: Current everyday Tobacco user Coding Level of Care Code Est Pt Level 3 (21506) Diagnoses Fibromyalgia M79.7 Seropositive rheumatoid arthritis M05.9
== END 2023-06-17 14:33 | disposition home or self-care (01) ==
PROVIDERS: PCP Internal Medicine; Visit Provider Internal Medicine Rheumatology
DX: M79.7 Fibromyalgia (principal); M05.89 Other rheumatoid arthritis with rheumatoid factor of multiple sites
CPT/HCPCS: 99213

== ENCOUNTER → 2023-06-17 13:25 | Outpatient (BNVA) | payer MEDICARE, MEDICAID, SELFPAY ==
[2023-04-22 10:17] VITALS: BP 100/64; BP 102/48; BP 110/70; BMI 25.5
== END ==
PROVIDERS: PCP Internal Medicine; Visit Provider Internal Medicine Rheumatology
DX: M79.7 Fibromyalgia (principal); M05.9 Rheumatoid arthritis with rheumatoid factor, unspecified
CPT/HCPCS: 99212

== ENCOUNTER 2023-06-26 07:27 | Outpatient (AMB) | payer MEDICARE, MEDICAID, SELFPAY ==
[2023-04-22 10:17] VITALS: BP 100/64; BP 102/48; BP 110/70; BMI 25.5
--- NOTE | 2023-06-26 07:27 | MHC.OFFVIS ---
Intake Intake Visit Reasons: F/U T2DM Intake Note: Type 2 diabetes follow up visit. 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: No Allergies dog dander [DOGS] Allergy (Intermediate, Verified 06/26/23 08:15) Respiratory distress shellfish derived Allergy (Intermediate, Verified 06/26/23 08:15) Hives methylprednisolone Allergy (Verified 06/26/23 08:15) Rash etanercept [From Enbrel] Adverse Reaction (Intermediate, Verified 06/26/23 08:15) Facial Swelling ibuprofen [Ibuprofen] Adverse Reaction (Intermediate, Verified 06/26/23 08:15) STOMACH UPSET, abdominal pain, nausea and vomiting metformin Adverse Reaction (Intermediate, Verified 06/26/23 08:15) Diarrhea metronidazole [From FLAGYL] Adverse Reaction (Intermediate, Verified 06/26/23 08:15) Diarrhea prednisone Adverse Reaction (Intermediate, Verified 06/26/23 08:15) hallucinations, higher than 20 Medication List - Last Reconciled 06/26/23 by Alison Holman DO aspirin 81 mg PO DAILY azithromycin 250 mg PO 3XW blood sugar diagnostic (FreeStyle Lite Strips) Use 1 test strip three times a day budesonide 0.25 mg inhalation BID 30 days rfuoydqnkg-cegsfmzgyhbwp-rrdu 50-325-40 mg 1 tab PO Q6H PRN carisoprodol (Soma) 250 mg PO TID PRN codeine-guaifenesin 10-100 mg/5 mL 10 mL PO Q4-6H PRN cyclobenzaprine mg PO dulaglutide (Trulicity) 1.5 mg (0.5 mL) subcut WE@0900 90 days famotidine 20 mg PO BEDTIME 90 days insulin degludec (Tresiba FlexTouch U-100 insulin) 20 units (0.2 mL) subcut BEDTIME 90 days ipratropium bromide 2.5 mL inhalation Q6H PRN ipratropium-albuterol 0.5 mg-3 mg(2.5 mg base)/3 mL 3 mL inhalation Q6H lancets (FreeStyle Lancets) Use 1 lancet once a day letrozole 2.5 mg PO DAILY levalbuterol tartrate 45 mcg/actuation 2 puffs inhalation Q4-6H PRN 30 days lubiprostone (Amitiza) 8 mcg PO BID 90 days nitroglycerin 0.4 mg sublingual Q5M PRN Novolog FlexPen U-100 Insulin (insulin aspart U-100) 2 - 10 units See Protocol subcut TIDAC 30 days NS ondansetron 8 mg PO Q8H PRN 30 days pantoprazole 40 mg PO BID 90 days pen needle, diabetic (Comfort EZ Pen [place]) Use 1 pen needle 6 times a day prednisone 5 mg PO DAILY pregabalin (Lyrica) 200 mg PO BID tramadol 50 mg PO Q6H PRN trazodone 100 mg PO BEDTIME 90 days Ventolin HFA 90 mcg/actuation (albuterol sulfate) 1 inh inhalation QID PRN 30 days NS walker with seat HPI HPI Comments History of Present Illness Details 62 YO F with PMHx T2DM, Bipolar disorder on [place], Invasive Ductal Carcinoma of the L breast s/p lumpectomy and radiation now on letrozole therapy who is seen in F/U for Osteoporosis, T2DM and 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 1) T2DM: ? Initially diagnosed with T2DM many years ago. She has a diagnosis of RA and has been on prednisone, now 5 mg PO daily. ? Was initially started on treatment with Tradjenta 5 mg PO daily, and then Tresiba 25 units was added in. She was having persistent hyperglycemia into the 500's.? She initially was insistent that she had been using her BBI regimen as prescribed.? Her doses of both basal and mealtime insulin were continually increased based on this.? She then actually did start using her insulin, and began having multiple daily episodes of hypoglycemia.? She admitted at that time that she had not been using her insulin at all.? We stopped her mealtime humalog at that time and decreased her Tresiba to 35 units.? She has not been using her medications as prescribed. ? Current regimen Trulicity 1.5 mg once a week, tresiba 20 units daily and Novolog 8 units AC. She remains on prednisone 5 mg PO daily. Currently using CGM [employer]. Unable to download sugars today. ? Most recent A1C: 6.5% 06/13/2023, down from 7.8% 03/11/2023, up from 7.6% 09/06/2022, down from 12.3% 11/24/20, down from 14.0% 03/30/2020. Has hypoglycemia awareness.? Treats lows according to the rule of 15's. ? Family history of T2DM in Mother, Father and Sister. ? Has eyes checked yearly, last eye exam 06/18/2022, unsure if retinopathy. ? Has neuropathy, does not see Podiatry. ? Has Nephropathy, on Losartan 25 mg PO daily. UAC 5. 06/13/2023. ? Has HLD, on Atorvastatin 80 mg PO daily.? LDL 102 06/13/2023. ? Denies CAD. ? Diet: ? Snacks frequently overnight. ? Has not had CDE. 2) [place] Induced Hyperparathyroidism: First noted to have high calcium in early 2018. She had labs checked 12/08/18 with Calcium 10.6 and PTH 19. It does not appear any further workup was initiated. She then had labs repeated 09/11/19 with Calcium 10.4. These were again repeated 09/22/19 with Calcium of 10.3 and Albumin of 4.2. Vitamin D was checked 09/03/19 and was 38.3. No PTH was reassessed since Nov 2018. She has been on [facility] [place] 400 mg PO daily for many years. It is unclear if any attempt has been made to wean this in the past, but she is unwilling as she is afraid of relapse. After her initial visit with me we repeated lab evaluation. 11/19/2019 Total Calcium was 10.5, Albumin 4.6, iCal 5.8, Vitamin D 27.5, PTH 43. 24 hour urine Calcium was 102. Calcium to creatinine clearance ratio was calculated at 0.011. Labs were repeated in late March 2020, and these were completely WNL, with no evidence of hypercalcemia. Labs repeated again 11/24/2020 with Calcium 9.7, PTH 32, Albumin 4.0, Vitamin D 21.9. 24 hour urine calcium was elevated to 297, and this was an adequate collection. She had a DEXA scan completed 04/08/2018 which revealed Osteopenia of the Spine and the Hip and distal forearm. She also had a diagnosis of invasive ductal carcinoma of the L breast and is s/p lumpectomy and radiation therapy, now on Letrozole therapy since 2019. She was started on Zometa and received her first dose 05/16/2021. Her most recent dose was 04/26/2022. Additionally she takes Prednisone 5 mg PO daily for her rheumatoid arthritis. We checked thyroid US to assess for parathyroid adenoma. No parathyroid adenoma was present, but there was a solitary subcentimeter thyroid nodule. Her repeat thyroid US revealed no evidence of a thyroid nodule. She was referred to Dr. Hernandez to discuss a surgical parathyroidectomy. He repeated labs at [facility] Reference labs 03/31/2021. Calcium was 10.2, Albumin 4.3, PTH 34 and Vitamin D 34. His recommendation was to continue to monitor. She does not use a Calcium supplement or a Vitamin D supplement. She was previously on HCTZ, but has not taken this in many years. Kidney stones: Denies. Osteoporosis: Has Osteopenia, currently on Letrozole therapy x 1 year with slight decline in her BMD at all points. Biotin use: Denies Family history of high calcium or kidney stones: Kidney stones in her brother. Denies a Family History of Osteoporosis. Renal imaging: Had a CT abd/pelvis 10/16/19 with no evidence of nephrolithiasis. 3) Breast Cancer: Patient with Invasive Ductal Carcinoma of the L breast s/p lumpectomy Nov 2018. This was ER +, TN + and HER 2 Negative. She was initially treated with Tamoxifen, but did not tolerate this and was switched to Letrozole in the fall of 2018. BMD reveals Osteopenia at all sites including the distal forearm. She has remained on Zometa by [facility]. DEXA: 05/06/2023 FINDINGS: AP SPINE L1-L4: Current: BMD 0.934 g/cm2, Z-score -0.4, T-score -2.1, osteopenia, 1.5% increase from previous, 7.5% decrease from baseline (<5% change is not significant). Prior: BMD 0.920 g/cm2. Baseline: BMD 1.010 g/cm2. LEFT FEMUR, NECK: Current: BMD 0.773 g/cm2, Z-score -0.4, T-score -1.9, osteopenia. Prior: BMD 0.734 g/cm2. Baseline: BMD 0.815 g/cm2. LEFT FEMUR, TOTAL: Current: BMD 0.869 g/cm2, Z-score 0.1, T-score -1.1, osteopenia, 0.7% decrease from previous, 7.6% decrease from baseline (<5% change is not significant). Prior: BMD 0.875 g/cm2. Baseline: BMD 0.940 g/cm2. LEFT FOREARM RADIUS 33%: BMD 0.675 g/cm2, Z-score -1.3, T-score -2.3, osteopenia, 1.6% decrease from baseline (<5% change is not significant). Baseline: BMD 0.686 g/cm2. Thyroid US: 12/13/2020 SIZE: Measurements of the thyroid lobes and nodules are given in sagittal, anteroposterior and transverse dimensions respectively. Right thyroid lobe: 3.9 x 1.7 x 1.4 cm, volume 4.9 mL. Previously 4.3 x 1.9 x 1.5 cm, volume 6.4 mL. Left thyroid lobe: 4.3 x 1.4 x 1.2 cm, volume 3.8 mL. Previously 4.1 x 1.4 x 1.3 cm, volume 3.7 mL. Isthmus: 0.3 cm in maximum AP dimension. Previously 0.2 cm. PARENCHYMA: The gland echotexture is homogeneous. Thyroid vascularity is normal. RIGHT THYROID LOBE: No nodules. ISTHMUS: No nodules. LEFT THYROID LOBE: No nodules. NODES: No lymphadenopathy is seen in the tissue surrounding the thyroid gland. Labs: Laboratory Tests 08/06/22 08/06/22 08/06/22 10:02 10:02 10:03 Sodium Potassium Creatinine Estimated GFR Hgb A1c (Clinic) Hemoglobin A1c % LDL Cholesterol, C alc 25-OH Vitamin D To [facility] 38.3 PTH Intact 58 Calcium (PTH Intac t) 9.1 Microalb/Creat Rat io 4.0 09/06/22 12/27/22 01/31/23 10:40 11:00 07:44 Sodium Potassium Creatinine 0.82 Estimated GFR > 60 Hgb A1c (Clinic) Hemoglobin A1c % LDL Cholesterol, C alc 66 25-OH Vitamin D To [facility] PTH Intact Calcium (PTH Intac t) Microalb/Creat Rat io 6.6 02/01/23 03/11/23 06/13/23 08:51 08:08 08:05 Sodium 139 Potassium 4.6 Creatinine 0.78 Estimated GFR > 60 Hgb A1c (Clinic) 7.8 H Hemoglobin A1c % LDL Cholesterol, C alc 25-OH Vitamin D To [facility] PTH Intact Calcium (PTH Intac t) Microalb/Creat Rat io 5.0 06/13/23 06/13/23 06/13/23 08:18 08:18 08:18 Sodium Potassium Creatinine 0.78 Estimated GFR > 60 Hgb A1c (Clinic) Hemoglobin A1c % 6.5 LDL Cholesterol, C alc 102 25-OH Vitamin D To [facility] 40.8 PTH Intact Calcium (PTH Intac t) Microalb/Creat Rat io PFSH Medical History Allergic rhinitis Anxiety Anxiety Atherosclerotic cardiovascular disease Bipolar 1 disorder, depressed Bloody diarrhea Breast pain, right Bronchial asthma CAD (coronary artery disease) Colitis COPD (chronic obstructive pulmonary disease) COPD exacerbation Cough CVA (cerebral vascular accident) Depression Diabetes type 2, uncontrolled Dyslipidemia Fibromyalgia GERD (gastroesophageal reflux disease) HLD (hyperlipidemia) Hospital discharge follow-up HTN (hypertension) Hyperkalemia Hyperlipidemia LDL goal <100 Hyperparathyroidism Hypertension Hypothyroid IDDM (insulin dependent diabetes mellitus) Infiltrating ductal carcinoma of left breast, stage 2 Insomnia Irritable bowel Osteoporosis PAD (peripheral artery disease) Rash Reactive airways dysfunction syndrome Restrictive airway disease Seropositive rheumatoid arthritis T2DM (type 2 diabetes mellitus) Thyroid nodule Vitamin D deficiency Surgical History H/O cardiac catheterization H/O: hysterectomy History of bronchoscopy History of bunionectomy of both great toes History of colonoscopy History of esophagogastroduodenoscopy (EGD) History of lumpectomy of left breast History of pubovaginal sling History of tubal ligation Hx of endoscopy Hx of sigmoidoscopy Family History Mother Diabetes HTN (hypertension) Uterus cancer Malignant tumor of head Breast cancer Father Diabetes HTN (hypertension) CVD (cardiovascular disease) Heart problem Maternal Aunt Breast cancer Brother Myocardial infarction S/P CABG x 4 Family/Other FH: mental illness Family/Other Lung cancer Other Mental health disorder Social History Household Members: Family Household Members Other:: sister Housing: House Are you a primary lpn care manager to a significant other at home: No Do you presently have visiting nurse or other home services: Yes (sister is flying teacher) Alcohol intake: never Patient Tobacco Use Status: Current everyday Tobacco user Tobacco use type: Cigarette Years Smoked: 50 +/- e-Cigarette/Vaping Use: Never Used Second Hand Smoke Exposure: No Advance Directives Date on File: 12/22/21 service: No Current occupational status: disabled Current occupation: rt handed Cognitive needs: No Hearing needs: No Vision needs: Yes Assessment & Plan Assessment & Plan (1) T2DM (type 2 diabetes mellitus): Code(s): E11.9 - Type 2 diabetes mellitus without complications Plan: Patient with T2DM, with drastically improved control on her current regimen. I will continue to congratulate and encourage her as she has reduced her A1C from >14% when I began seeing her to now 6.5%. Plan for now is to continue with Trulicity 1.5 mg once a week, Tresiba 20 units daily and Novolog 8-10 units AC. I advised if she notices her postprandial sugars are consistently above 180, she should increase her mealtime novolog to 11 and notify me of any episodes of hypoglycemia. She verbalizes understanding. All of her questions were answered. She is in agreement with this plan of care. The importance of adherence to prescribed regimen was discussed with the patient including checking finger sticks 3-4 times per day, using medication as prescribed, monitoring for hypoglycemia and treating any episode of hypoglycemia according to the rule of 15's. The signs and symptoms of hypoglycemia were reviewed in detail, as well as the rule of 15's to treat. Proper foot care was also discussed with the patient, and the importance of yearly dilated eye exam. The patient was asked to have copy of eye exam sent to our office for review. I spent 20 minutes in reviewing the record, seeing the patient and documenting in the medical record, including 5 minutes on the phone with the Patient. (2) HLD (hyperlipidemia): Code(s): E78.5 - Hyperlipidemia, unspecified Plan: LDL at goal, no changes. (3) HTN (hypertension): Code(s): I10 - Essential (primary) hypertension Plan: BP at goal. No changes. (4) Osteoporosis: Code(s): M81.0 - Age-related osteoporosis without current pathological fracture Qualifiers: Osteoporosis type: unspecified Presence of current pathological fracture: unspecified Qualified Code(s): M81.0 - Age-related osteoporosis without current pathological fracture Plan: Patient with Osteopenia which is due to her suspected hyperparathyroidism which I suspect is lithium induced, coupled with her Letrozole use. She has breast cancer and with continued use of Letrozole her bone density will continue to decline. She was started on Zometa by [facility] and remains on this. Will defer management to them. Her Calcium has remained WNL while on treatment. 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 This is medically controlled with the IV Zometa per [facility]. I have deferred management. (6) Vitamin D deficiency: Code(s): E55.9 - Vitamin D deficiency, unspecified Plan: Remains on Vitamin D 1000 IU daily. Vitamin D levels at goal. Quality Reporting (2020) Adult ([facility] 13801/09/69) Smoking risk assessment performed?: Yes Patient Tobacco Use Status: Current everyday Tobacco user Telehealth Telehealth Location of provider rendering services: practice address Location of patient: address on file Patient Identification confirmed using: Name, : Yes Telehealth method: voice only Patient verbally consented to treatment: Yes Patient verbally consented to billing insurance company: Yes Patient informed of any privacy concerns related to visit: Yes Coding Level of Care Code Tele Est Pt Level 3 (62749) Diagnoses T2DM (type 2 diabetes mellitus) E11.9 HLD (hyperlipidemia) E78.5 HTN (hypertension) I10 Osteoporosis M81.0 Osteoporosis type: unspecified Presence of current pathological fracture: unspecified Hyperparathyroidism E21.3 Vitamin D deficiency E55.9
== END 2023-06-26 13:26 | disposition home or self-care (01) ==
LOC: HO.ENCR 07:27
PROVIDERS: PCP Internal Medicine; Visit Provider Internal Medicine
DX: E11.9 Type 2 diabetes mellitus without complications (principal); E78.5 Hyperlipidemia, unspecified; I10 Essential (primary) hypertension; M81.0 Age-related osteoporosis without current pathological fracture; E21.3 Hyperparathyroidism, unspecified; E55.9 Vitamin D deficiency, unspecified
CPT/HCPCS: 99443

== ENCOUNTER → 2023-06-26 07:27 | Outpatient (BNVA) | payer MEDICARE, MEDICAID, SELFPAY ==
[2023-04-22 10:17] VITALS: BP 100/64; BP 102/48; BP 110/70; BMI 25.5
== END ==
PROVIDERS: PCP Internal Medicine; Visit Provider Internal Medicine

== ENCOUNTER 2023-07-04 11:27 | Emergency (ER) | payer MEDICARE, MEDICAID, SELFPAY ==
[2023-04-22 10:17] VITALS: BP 100/64; BP 102/48; BP 110/70; BMI 25.5
--- NOTE | ~2023-07-04 | XR_ITS ---
EXAMINATION: XR CHEST CLINICAL INFORMATION: Chest pain. COMPARISON: 05/16/2023 chest radiographs and chest CTA. TECHNIQUE: Frontal view of the chest was obtained. FINDINGS: No significant abnormality is noted involving the heart, lungs, mediastinum, bony thorax or soft tissues. XR/XR chest 1V IMPRESSION: Stable chest. No acute cardiopulmonary process.
[2023-07-04 12:26] VITALS: BP 112/88; PULSE 113; RESP 17; TEMP 36.5; O2SAT 96; BMI 23.0
--- NOTE | 2023-07-04 12:26 | ED.GENADULT ---
HPI - General Adult General Chief complaint: General Medical Stated complaint: bone pain Time Seen by Provider: 07/04/23 15:12 Source: patient Mode of arrival: ambulatory Limitations: no limitations History of Present Illness HPI narrative: ?62 yo F with HTN, HLD, CAD s/p PCI, DM2, PAD, ashtma, COPD, steroid-dependent rheumatoid arthritis, fibromyalgia, bipolar depression, on ASA, c/o? bone pain, achy, myalgias, fatigue, malaise, substernal nonradiating chest pain x4 days with nausea. Admits feels different than her Fibroymalgia. Has been taking Soma & Flexeril w/o relief. Has been noncompliant with her steroids x4 days (states here Customer Operations Associate took her off). Patient denies fevers, chills, sore throat, cough, vomiting, headache, vision changes, dizziness, weakness, lower extremity swelling, shortness of breath Related Data Home Medications Medication Instructions Recorded Confirmed nitroglycerin 0.4 mg sublingual 0.4 mg sublingual Q5M PRN Chest 01/03/22 06/26/23 tablet Pain azithromycin 250 mg tablet 250 mg PO 3XW 06/17/23 06/26/23 hejoqerjpu-acbwayshwhroy-llncbqvw 1 tab PO Q6H PRN pain 06/17/23 06/26/23 50 mg-325 mg-40 mg tablet codeine 10 mg-guaifenesin 100 mg/5 10 ml PO Q4-6H PRN cough 06/17/23 06/26/23 mL oral liquid cyclobenzaprine 10 mg tablet mg PO 06/17/23 06/26/23 Previous Rx's Medication Instructions Recorded lancets 28 gauge (FreeStyle #100 ea 06/07/22 Lancets) pen needle, diabetic 31 gauge x #200 ea 06/07/22/16 (Comfort EZ Pen [place]) Novolog FlexPen U-100 Insulin 100 2 - 10 unit subcut TIDAC 30 days 08/28/22 unit/mL (3 mL) subcutaneous #15 mL (insulin aspart U-100) pantoprazole 40 mg tablet,delayed 40 mg PO BID 90 days #180 tabs 10/18/22 release pregabalin 200 mg capsule (Lyrica) 200 mg PO BID #60 caps 01/02/23 budesonide 0.5 mg/2 mL suspension 0.25 mg inhalation BID ASTHMA/COPD 01/04/23 for nebulization 30 days #60 mL famotidine 20 mg tablet 20 mg PO BEDTIME 90 days #90 tabs 01/10/23 lubiprostone 8 mcg capsule 8 mcg PO BID 90 days #180 caps 01/10/23 (Amitiza) walker #1 ea 02/08/23 insulin degludec 100 unit/mL (3 20 unit (0.2 mL) subcut BEDTIME 90 02/11/23 mL) subcutaneous pen (Tresiba days #18 mL FlexTouch U-100 insulin) letrozole 2.5 mg tablet 2.5 mg PO DAILY #90 tabs 02/12/23 Ventolin HFA 90 mcg/actuation 1 inh inhalation QID PRN shortness 02/28/23 aerosol inhaler (albuterol sulfate) of breath or wheezing 30 days #18 grams dulaglutide 1.5 mg/0.5 mL 1.5 mg (0.5 mL) subcut WE@0900 90 04/22/23 subcutaneous pen injector days #6.5 mL (Trulicity) ondansetron 8 mg disintegrating 8 mg PO Q8H PRN nausea and 04/24/23 tablet vomiting 30 days #90 tabs tramadol 50 mg tablet 50 mg PO Q6H PRN pain #20 tabs 04/24/23 ipratropium 0.5 mg-albuterol 3 mg 3 ml inhalation Q6H #180 mL 05/17/23 (2.5 mg base)/3 mL nebulization soln carisoprodol 250 mg tablet (Soma) 250 mg PO TID PRN muscle pain #20 05/23/23 tabs blood sugar diagnostic (FreeStyle #100 ea 05/27/23 Lite Strips) levalbuterol tartrate 45 2 puff inhalation Q4-6H PRN 06/13/23 mcg/actuation aerosol inhaler shortness of breath 30 days #15 grams trazodone 100 mg tablet 100 mg PO BEDTIME 90 days #90 tabs 06/27/23 aspirin 81 mg tablet,delayed 81 mg PO DAILY 90 days #90 tabs 06/30/23 release ipratropium bromide 0.02 % 2.5 ml inhalation Q6H PRN 07/03/23 solution for inhalation shortness of breath or wheezing #150 mL prednisone 5 mg tablet 5 mg PO DAILY for asthma 30 days 07/03/23 #30 tabs ondansetron 4 mg disintegrating 4 mg PO Q6H PRN nausea and 07/04/23 tablet vomiting #14 tabs Allergies Allergy/AdvReac Type Severity Reaction Status Date / Time dog dander [DOGS] Allergy Intermediate Respiratory Verified 06/26/23 08:15 distress shellfish derived Allergy Intermediate Hives Verified 06/26/23 08:15 methylprednisolone Allergy Rash Verified 06/26/23 08:15 etanercept [From Enbrel] AdvReac Intermediate Facial Verified 06/26/23 08:15 Swelling ibuprofen [Ibuprofen] AdvReac Intermediate STOMACH Verified 06/26/23 08:15 UPSET, abdominal pain, nausea and vomiting metformin AdvReac Intermediate Diarrhea Verified 06/26/23 08:15 metronidazole [From FLAGYL] AdvReac Intermediate Diarrhea Verified 06/26/23 08:15 prednisone AdvReac Intermediate hallucinations, Verified 06/26/23 08:15 higher than 20 Review of Systems Review of Systems: Constitutional : No Weight loss, No Fever, No Chills, + Fatigue, + Malaise ENT/Mouth : No sore throat, No Rhinorrhea Eyes: No Eye Pain, No Swelling, No Redness Cardiovascular : + Chest Pain, No SOB, No Dyspnea on Exertion, No Orthopnea, No Edema, No Palpitations Respiratory : No Cough, No Sputum, No Wheezing Gastrointestinal : No Nausea, No Vomiting, No Diarrhea, No Constipation, No abdominal Pain, No Hematochezia, No Melena Genitourinary : No Dysuria, No Urinary Frequency, No Hematuria, Musculoskeletal : No joint pain, + Myalgias, No Joint Swelling Skin : No Skin Lesions, No rash Neuro : No Weakness, No Numbness, No Dizziness, No Headache Psych : No Anxiety/Panic, No Depression All other systems reviewed and are negative Yes all other systems are reviewed and are negative [facility] Past Medical History Attestation statement: The following information was validated with the patient. Source: old records reviewed and nursing notes reviewed Medical History Allergic rhinitis Anxiety Anxiety Atherosclerotic cardiovascular disease Bipolar 1 disorder, depressed Bloody diarrhea Breast pain, right Bronchial asthma CAD (coronary artery disease) Colitis COPD (chronic obstructive pulmonary disease) COPD exacerbation Cough CVA (cerebral vascular accident) Depression Diabetes type 2, uncontrolled Dyslipidemia Fibromyalgia GERD (gastroesophageal reflux disease) HLD (hyperlipidemia) Hospital discharge follow-up HTN (hypertension) Hyperkalemia Hyperlipidemia LDL goal <100 Hyperparathyroidism Hypertension Hypothyroid IDDM (insulin dependent diabetes mellitus) Infiltrating ductal carcinoma of left breast, stage 2 Insomnia Irritable bowel Osteoporosis PAD (peripheral artery disease) Rash Reactive airways dysfunction syndrome Restrictive airway disease Seropositive rheumatoid arthritis T2DM (type 2 diabetes mellitus) Thyroid nodule Vitamin D deficiency Surgical History H/O cardiac catheterization H/O: hysterectomy History of bronchoscopy History of bunionectomy of both great toes History of colonoscopy History of esophagogastroduodenoscopy (EGD) History of lumpectomy of left breast History of pubovaginal sling History of tubal ligation Hx of endoscopy Hx of sigmoidoscopy Family History Family History Mother Diabetes HTN (hypertension) Uterus cancer Malignant tumor of head Breast cancer Father Diabetes HTN (hypertension) CVD (cardiovascular disease) Heart problem Maternal Aunt Breast cancer Brother Myocardial infarction S/P CABG x 4 Family/Other FH: mental illness Family/Other Lung cancer Other Mental health disorder Social History Social History Household Members: Family Household Members Other:: sister Housing: House Are you a primary childbirth and infant care teacher to a significant other at home: No Do you presently have visiting nurse or other home services: Yes (sister is osteopathic physician) Alcohol intake: never Patient Tobacco Use Status: Current everyday Tobacco user Tobacco use type: Cigarette Years Smoked: 50 +/- e-Cigarette/Vaping Use: Never Used Second Hand Smoke Exposure: No Advance Directives: Yes Advance Directives on File: Yes Advance Directives Date on File: 12/22/21 service: No Current occupational status: disabled Current occupation: rt handed Cognitive needs: No Hearing needs: No Vision needs: Yes Physical Exam ED Vital Signs: Vital Signs - 24 hr 07/04/23 12:26 07/04/23 15:11 Temperature 97.7 F Pulse Rate 113 H 102 H Respiratory Rate 17 18 Blood Pressure 112/88 113/75 Pulse Oximetry 96 96 Oxygen Delivery Method Room Air Room Air BMI result Body Mass Index 23.0 vss Appearance: Alert.? Oriented X3.? No acute distress.? Head: Normocephalic, atraumatic, no step-offs or deformities Eyes: Pupils equal, round and reactive to light.? ENT: Pharynx normal.? Neck: Normal inspection.? Neck supple.? CVS: Normal heart rate and rhythm.? Pulses normal.? Respiratory: No respiratory distress.? Breath sounds normal.? Abdomen: Soft and nontender.? Skin: Skin warm and dry.? Normal skin color.? Normal skin turgor.? Extremities: No lower extremity edema.? No calf ttp. 5/5 strength to bilateral upper and lower extremities Neuro: Oriented X 3.? No motor deficit.? No sensory deficit. CN 2-12 intact . Ambulating with steady gait normal coordination. Course Course Course Narrative: RME: 62 yo F with HTN, HLD, CAD s/p PCI, DM2, PAD, ashtma, COPD, steroid-dependent rheumatoid arthritis, fibromyalgia, bipolar depression, on ASA, c/o? bone pain, achy, myalgias x4 days with nausea. Admits feels different than her Fibroymalgia. Has been taking Soma & Flexeril w/o relief. Has been noncompliant with her steroids x4 days (states here Customer Operations Associate took her off) Labs, viral testing ordered Full HPI, ROS and PE to be performed by primary ED provider. Reevaluation(s) Reevaluation #1: Chest x-ray unremarkable. CBC no acute findings. Chemistry unremarkable. Normal troponin, BNP, 2nd troponin pending , EKG nonischemic unlikely CHF or ACS.. Patient's inflammatory markers to slightly elevated likely secondary to chronic RA. COVID, influenza and negative. Patient was still complaining of pain morphine ordered. Time: 17:34 Reevaluation #2: second trop negative patient can be dc w/ safe ride home. Educated patient on diagnosis and treatment plan, answered all question, patient verbalizes understanding. At this time patient will be discharged home, advised to return with new or worsening symptoms. Educated on worrisome signs and symptoms and when to return. At this time I feel comfortable discharge home. Time: 18:25 Medications Administered Discontinued Medications Generic Name Dose Route Start Last Admin Trade Name Freq PRN Reason Stop Dose Admin Acetaminophen 650 mg 07/04/23 15:48 07/04/23 15:53 Acetaminophen 325 Mg Tablet PO 07/04/23 15:49 650 mg ONCE ONE Administration Morphine Sulfate 15 mg 07/04/23 17:09 07/04/23 17:20 Morphine Sulfate Immed Release 15 Mg Tablet PO 07/04/23 17:10 15 mg ONCE ONE Administration Medical Decision Making Medical Decision Making [facility] Narrative: 1545 63-year-old female presents with body aches and pains, fatigue, malaise, substernal nonradiating chest pain for the past 4 days. Physical examination benign. Neuro nonfocal. Regular rate and rhythm. Lungs clear. Abdomen soft nontender nondistended. Patient ambulatory with steady gait normal coordination. NIH stroke scale 0. This is likely fibromyalgia Versus viral illness vs RA . Will rule out electrolyte abnormalities, rhabdomyolysis. Unlikely ACS likely noncardiac related chest pain. Unlikely PE, patient without significant risk factors, patient is saturating well on room air. Unlikely pneumonia. Lungs clear. No trauma involved. No abdominal pain on palpation, unlikely intra-abdominal etiology such as appendicitis, cholecystitis, diverticulitis, acute abdomen, obstruction, cholecystitis. Plan at this time labs, EKG, troponin. Differential Diagnosis Differential Diagnoses: The differential diagnosis associated with the presentation includes This is likely fibromyalgia Versus viral illness vs RA. Will rule out electrolyte abnormalities, rhabdomyolysis. Unlikely ACS likely noncardiac related chest pain. Unlikely PE, patient without significant risk factors, patient is saturating well on room air. Unlikely pneumonia. Lungs clear. No trauma involved. Admission/Observation Consideration of admission/observation: Escalation of care including admission/observation considered no indication Lab Data [facility] Lab Attestation statement: I reviewed the patient's lab results. 07/04/23 12:50 07/04/23 12:50 Labs: Lab Results 07/04/23 07/04/23 07/04/23 Range/Units 12:50 12:50 12:50 WBC (4.8-10.8) X10*3/uL RBC (4.20-5.50) X10*6/uL Hgb (12.0-16.0) g/dl Hct (37.0-47.0) % MCV (80.0-98.0) fL MCH (27.0-33.0) pg MCHC (31.0-35.0) g/dl RDW (11.0-16.0) % Plt Count (160-400) X10*3/uL MPV (9.4-12.3) fL Immature Gran % (Auto) (0.0-0.4) % Neut % (Auto) (45-73) % Lymph % (Auto) (20-40) % [place] % (Auto) (2-11) % Eos % (Auto) (0-4) % Baso % (Auto) (0-2) % Lymph # (Auto) (1.2-4.9) X10*3/uL [place] # (Auto) (0.1-1.2) X10*3/uL Eos # (Auto) (0.0-0.4) X10*3/uL Baso # (Auto) (0.0-0.2) X10*3/uL Abs Immat Gran (auto) (0.00-0.03) X10*3/uL Absolute Neuts (auto) (2.0-8.3) x10*3/uL Absolute Nucleated RBC (0.0-0.012) X10*3/uL Nucleated RBC % (auto) (0.0-0.2) /100WBC ESR 23 H (0-20) MM/HR Sodium 141 (135-145) mmol/L Potassium 4.5 (3.3-5.1) mmol/L Chloride 109 H (96-108) mmol/L Carbon Dioxide 24 (22-29) mmol/L Anion Gap 13 (12-20) BUN 9 (9-16) mg/dL Creatinine 0.84 (0.5-1.4) mg/dL Estim Creat Clear Calc 49.4 Estimated GFR > 60 Random Glucose 116 H (60-115) mg/dL Calcium 9.7 D (8.4-10.2) mg/dL Total Creatine Kinase 48 (26-140) U/L Troponin I High Sens (<3.5-17.0) ng/L C-Reactive Protein 0.88 H (< or = 0.50) mg/dL B-Natriuretic Peptide (<100) pg/mL COVID-19 ([facility]) (Negative) COVID-19 Clin Com Influenza Type A (CEDRIC) Negative (Negative) Influenza Type B (CEDRIC) Negative (Negative) Influenza A & B Note See Note 07/04/23 07/04/23 07/04/23 Range/Units 12:50 12:50 15:45 WBC 7.9 (4.8-10.8) X10*3/uL RBC 4.77 (4.20-5.50) X10*6/uL Hgb 13.3 (12.0-16.0) g/dl Hct 41.2 (37.0-47.0) % MCV 86.4 (80.0-98.0) fL MCH 27.9 (27.0-33.0) pg MCHC 32.3 (31.0-35.0) g/dl RDW 13.8 (11.0-16.0) % Plt Count 320 (160-400) X10*3/uL MPV 10.3 (9.4-12.3) fL Immature Gran % (Auto) 0.3 (0.0-0.4) % Neut % (Auto) 61.0 (45-73) % Lymph % (Auto) 30.0 (20-40) % [place] % (Auto) 7.3 (2-11) % Eos % (Auto) 1.0 (0-4) % Baso % (Auto) 0.4 (0-2) % Lymph # (Auto) 2.4 (1.2-4.9) X10*3/uL [place] # (Auto) 0.6 (0.1-1.2) X10*3/uL Eos # (Auto) 0.1 (0.0-0.4) X10*3/uL Baso # (Auto) 0.0 (0.0-0.2) X10*3/uL Abs Immat Gran (auto) 0.02 (0.00-0.03) X10*3/uL Absolute Neuts (auto) 4.8 (2.0-8.3) x10*3/uL Absolute Nucleated RBC 0.000 (0.0-0.012) X10*3/uL Nucleated RBC % (auto) 0.0 (0.0-0.2) /100WBC ESR (0-20) MM/HR Sodium (135-145) mmol/L Potassium (3.3-5.1) mmol/L Chloride (96-108) mmol/L Carbon Dioxide (22-29) mmol/L Anion Gap (12-20) BUN (9-16) mg/dL Creatinine (0.5-1.4) mg/dL Estim Creat Clear Calc Estimated GFR Random Glucose (60-115) mg/dL Calcium (8.4-10.2) mg/dL Total Creatine Kinase (26-140) U/L Troponin I High Sens < 2.7 (<3.5-17.0) ng/L C-Reactive Protein (< or = 0.50) mg/dL B-Natriuretic Peptide (<100) pg/mL COVID-19 ([facility]) Negative (Negative) COVID-19 Clin Com See Note Influenza Type A (CEDRIC) (Negative) Influenza Type B (CEDRIC) (Negative) Influenza A & B Note 07/04/23 07/04/23 Range/Units 15:45 17:41 WBC (4.8-10.8) X10*3/uL RBC (4.20-5.50) X10*6/uL Hgb (12.0-16.0) g/dl Hct (37.0-47.0) % MCV (80.0-98.0) fL MCH (27.0-33.0) pg MCHC (31.0-35.0) g/dl RDW (11.0-16.0) % Plt Count (160-400) X10*3/uL MPV (9.4-12.3) fL Immature Gran % (Auto) (0.0-0.4) % Neut % (Auto) (45-73) % Lymph % (Auto) (20-40) % [place] % (Auto) (2-11) % Eos % (Auto) (0-4) % Baso % (Auto) (0-2) % Lymph # (Auto) (1.2-4.9) X10*3/uL [place] # (Auto) (0.1-1.2) X10*3/uL Eos # (Auto) (0.0-0.4) X10*3/uL Baso # (Auto) (0.0-0.2) X10*3/uL Abs Immat Gran (auto) (0.00-0.03) X10*3/uL Absolute Neuts (auto) (2.0-8.3) x10*3/uL Absolute Nucleated RBC (0.0-0.012) X10*3/uL Nucleated RBC % (auto) (0.0-0.2) /100WBC ESR (0-20) MM/HR Sodium (135-145) mmol/L Potassium (3.3-5.1) mmol/L Chloride (96-108) mmol/L Carbon Dioxide (22-29) mmol/L Anion Gap (12-20) BUN (9-16) mg/dL Creatinine (0.5-1.4) mg/dL Estim Creat Clear Calc Estimated GFR Random Glucose (60-115) mg/dL Calcium (8.4-10.2) mg/dL Total Creatine Kinase (26-140) U/L Troponin I High Sens < 2.7 (<3.5-17.0) ng/L C-Reactive Protein (< or = 0.50) mg/dL B-Natriuretic Peptide < 10 (<100) pg/mL COVID-19 ([facility]) (Negative) COVID-19 Clin Com Influenza Type A (CEDRIC) (Negative) Influenza Type B (CEDRIC) (Negative) Influenza A & B Note Independent Interpretation I performed an independent interpretation of an: Plain X-Ray (XR/XR chest 1V IMPRESSION: Stable chest. No acute cardiopulmonary process. ) Tests considered The following testing was considered but not selected: History and physical exam with low suspicion for PE, also noted upon chart review patient had a similar presentation on 05/16/2023, negative CTA of the chest. Patient is not reporting shortness of breath, and her vital signs are stable low suspicion for PE. Critical Care Time Critical Care Time Critical Care Time: No Discharge Plan Discharge Clinical Impression: Myalgia, Nausea, Viral illness Patient Disposition: Home, Self-Care Instructions: Acute Nausea and Vomiting (ED), Viral Syndrome (ED), Musculoskeletal Pain (ED) Additional Instructions: Take your medications as prescribed. If you were prescribed antibiotics today, it is important that you take your medication to their entirety, do not skip any doses, do not finish them early. Follow-up with your primary care provider this week. Return to the emergency department with new or worsening symptoms. Such as fevers, chills, chest pain, shortness of breath, nausea, vomiting, dizziness, headache, vision changes, lethargy In case of emergency call 911 Take Tylenol as needed for pain or discomfort. Cece has been sent to her pharmacy for nausea and vomiting. Please take this as prescribed, do not take more than the prescribed doses this can lead to cardiac abnormalities. Prescriptions: New ondansetron 4 mg tablet,disintegrating 4 mg PO Q6H PRN (Reason: nausea and vomiting) Qty: 14 0RF No Action (DME) pen needle, diabetic [Comfort EZ Pen [place]] 31 gauge x 5/16 needle See Rx Instructions .ROUTE .MEDSUPPLY Qty: 200 11RF Rx Instructions: Use 1 pen needle 6 times a day (DME) lancets [FreeStyle Lancets] 28 gauge misc See Rx Instructions .Route Qty: 100 3RF Rx Instructions: Use 1 lancet once a day insulin aspart U-100 [Novolog FlexPen U-100 Insulin] 100 unit/mL (3 mL) insulin pen 2 - 10 unit subcut TIDAC 30 Days Qty: 15 11RF Protocol: Insulin Correction Scale Less than or equal to 110 ---- Give (units): 0 111 to 150 Give (units): 0 151 to 200 Give (units): 2 201 to 250 Give (units): 4 251 to 300 Give (units): 6 301 to 350 Give (units): 8 Greater than 350 Give (units): 10 Call MD if Blood Glucose > : 350 Rx Instructions: Via sliding scale pantoprazole 40 mg tablet,delayed release (DR/EC) 40 mg PO BID 90 Days Qty: 180 0RF budesonide 0.5 mg/2 mL suspension for nebulization 0.25 mg inhalation BID 30 Days Qty: 60 3RF (DME) walker Misc See Rx Instructions .Route Qty: 1 0RF Rx Instructions: with seat insulin degludec [Tresiba FlexTouch U-100] 100 unit/mL (3 mL) insulin pen 20 unit subcut BEDTIME 90 Days Qty: 18 1RF letrozole 2.5 mg Tablet 2.5 mg PO DAILY Qty: 90 3RF albuterol sulfate [Ventolin HFA] 90 mcg/actuation HFA aerosol inhaler 1 inh inhalation QID PRN (Reason: shortness of breath or wheezing) 30 Days Qty: 18 2RF Trulicity 1.5 mg/0.5 mL pen injector 1.5 mg subcut WE@0900 90 Days Qty: 6.5 2RF ipratropium-albuterol 0.5 mg-3 mg(2.5 mg base)/3 mL solution for nebulization 3 ml inhalation Q6H Qty: 180 0RF (DME) FreeStyle Lite Strips Strip MISCELLANEOUS DAILY Qty: 100 1RF Rx Instructions: Use 1 test strip three times a day levalbuterol tartrate 45 mcg/actuation HFA aerosol inhaler 2 puff inhalation Q4-6H PRN (Reason: shortness of breath) 30 Days Qty: 15 3RF trazodone 100 mg tablet 100 mg PO BEDTIME 90 Days Qty: 90 0RF aspirin 81 mg tablet,delayed release (DR/EC) 81 mg PO DAILY 90 Days Qty: 90 1RF ipratropium bromide 0.02 % solution 2.5 ml inhalation Q6H PRN (Reason: shortness of breath or wheezing) Qty: 150 3RF prednisone 5 mg tablet 5 mg PO DAILY 30 Days Qty: 30 3RF tramadol 50 mg tablet 50 mg PO Q6H PRN (Reason: pain) Qty: 20 0RF nitroglycerin 0.4 mg tablet, sublingual 0.4 mg sublingual Q5M PRN (Reason: Chest Pain) carisoprodol [Soma] 250 mg tablet 250 mg PO TID PRN (Reason: muscle pain) Qty: 20 0RF ondansetron 8 mg tablet,disintegrating 8 mg PO Q8H PRN (Reason: nausea and vomiting) 30 Days Qty: 90 0RF lubiprostone [Amitiza] 8 mcg capsule 8 mcg PO BID 90 Days Qty: 180 1RF famotidine 20 mg tablet 20 mg PO BEDTIME 90 Days Qty: 90 1RF pregabalin [Lyrica] 200 mg capsule 200 mg PO BID Qty: 60 3RF codeine-guaifenesin 10-100 mg/5 mL liquid 10 ml PO Q4-6H PRN (Reason: cough) cyclobenzaprine 10 mg tablet PO azithromycin 250 mg tablet 250 mg PO 3XW szonymlatx-svnvsyukyhvlp-qydp 50-325-40 mg tablet 1 tab PO Q6H PRN (Reason: pain) Referrals: Adela Gipson MD [Primary Care Provider] - 2 days Stand Alone Forms: Work/School Release
[2023-07-04 12:56] LABS: MANUAL DIFF FLAG NO
[2023-07-04 12:59] LABS: Basophils Percent Auto 0.4 % (0-2); Eosinophils Absolute Auto 0.1 X10*3/uL (0.0-0.4); Hematocrit 41.2 % (37.0-47.0); Hemoglobin 13.3 g/dl (12.0-16.0); Imm Gran Abs Auto 0.02 X10*3/uL (0.00-0.03); Imm Gran Pct Auto 0.3 % (0.0-0.4); Lymphocytes Absolute Auto 2.4 X10*3/uL (1.2-4.9); Mean Corpuscular HGB Conc 32.3 g/dl (31.0-35.0); Mean Corpuscular Hemoglobin 27.9 pg (27.0-33.0); Mean Corpuscular Volume 86.4 fL (80.0-98.0); Mean Platelet Volume 10.3 fL (9.4-12.3); Monocytes Absolute Auto 0.6 X10*3/uL (0.1-1.2); Monocytes Percent Auto 7.3 % (2-11); Neutrophils Absolute Auto 4.8 x10*3/uL (2.0-8.3); Platelet Count 320 X10*3/uL (160-400); Red Blood Count 4.77 X10*6/uL (4.20-5.50); Red Cell Distribution Width 13.8 % (11.0-16.0); White Blood Count 7.9 X10*3/uL (4.8-10.8)
[2023-07-04 13:16] LABS: Anion Gap 13 (12-20); Blood Urea Nitrogen 9 mg/dL (9-16); C Reactive Protein 0.88 mg/dL (< or = 0.50); Calcium 9.7 mg/dL (8.4-10.2); Carbon Dioxide 24 mmol/L (22-29); Chloride 109 mmol/L (96-108); Creatinine Clr Calc Pharmacy 49.4; Estimated Glomerular Filt Rate > 60; Glucose Random 116 mg/dL (60-115); Potassium 4.5 mmol/L (3.3-5.1); Sodium 141 mmol/L (135-145)
[2023-07-04 13:29] LABS: COVID-19 Test Negative (Negative); IDNOW Serial# 08D9AD1C; IDNOW Serial# BCCEAD1C; Influenza A Negative (Negative); Influenza B2 Negative (Negative)
[2023-07-04 13:46] LABS: Erythrocyte Sedimentation Rate 23 MM/HR (0-20)
[2023-07-04 15:11] VITALS: BP 113/75; PULSE 102; RESP 18; O2SAT 96
--- NOTE | 2023-07-04 15:29 | ECG_ITS ---
Test Reason : CP Blood Pressure : / mmHG Vent. Rate : 095 BPM Atrial Rate : 095 BPM P-R Int : 136 ms QRS Dur : 084 ms QT Int : 332 ms P-R-T Axes : 079 083 073 degrees QTc Int : 417 ms Normal sinus rhythm Normal ECG When compared with ECG of 16-MAY-2023 10:07, Questionable change in QRS axis T wave inversion no longer evident in Inferior leads Heart rate has decreased Referred By: Indiana Shankar Electronically Signed By:ALIA THURSTON
[2023-07-04] MEDS: Acetaminophen 325 MG TABLET 650 MG PO (15:53)
[2023-07-04 16:22] LABS: B Type Natriuretic Peptide < 10 pg/mL (<100)
[2023-07-04 16:27] LABS: Troponin-I High Sensitivity < 2.7 ng/L (<3.5-17.0)
[2023-07-04] MEDS: Morphine Sulfate Immed Release 15 MG TABLET PO (17:20)
[2023-07-04 18:10] LABS: Troponin-I High Sensitivity < 2.7 ng/L (<3.5-17.0)
[2023-07-04 18:39] VITALS: BP 107/66; PULSE 93; RESP 16; O2SAT 95
== END 2023-07-04 18:57 | disposition home or self-care (01) ==
PROVIDERS: Physician Assistant; Emergency Provider Emergency Medicine; PCP Internal Medicine
DX: B34.9 Viral infection, unspecified (principal); M79.10 Myalgia, unspecified site; R11.2 Nausea with vomiting, unspecified; Z20.822 Contact with and (suspected) exposure to COVID-19; E11.9 Type 2 diabetes mellitus without complications; I10 Essential (primary) hypertension; E78.5 Hyperlipidemia, unspecified; J44.9 Chronic obstructive pulmonary disease, unspecified; F17.210 Nicotine dependence, cigarettes, uncomplicated; Z79.4 Long term (current) use of insulin; Z79.899 Other long term (current) drug therapy
CPT/HCPCS: 36415; 71045; 80048; 82550; 83880; 84484; 85025; 85652; 86140; 87502; 87635; 93005; 99283; 99284

== ENCOUNTER 2023-07-10 14:10 | Outpatient (AMB) | payer MEDICARE, MEDICAID, SELFPAY ==
[2023-04-22 10:17] VITALS: BP 100/64; BP 102/48; BP 110/70; BMI 25.5
[2023-07-10 14:21] VITALS: BP 128/76; PULSE 108; O2SAT 97; BMI 22.8
--- NOTE | 2023-07-10 14:21 | A.OFFVIS_ITS ---
Intake Vital Signs 07/10/23 14:21 Height 4 ft 10 in Weight 109 lb 2.061 oz BMI 22.8 BP 128/76 Blood Pressure Location Lt brachial Position Sitting Pulse 108 H Pulse Source Pulse Oximeter Pulse Oximetry (%) 97 Oxygen Delivery Method Room Air Intake Visit Reasons: Asthma Intake Note: Pt reports having an extremely dry cough that she has had for a while now. Since she has been taken off albuterol she feels like her breathing is worse, her chest is tight, and even though her oxygen levels read in range she feels it does not accurately represent how she feels. Pt says her pulse is reading higher than normal and she feels a little light-headed and dizzy. Allergies dog dander [DOGS] Allergy (Intermediate, Verified 07/10/23 14:42) Respiratory distress shellfish derived Allergy (Intermediate, Verified 07/10/23 14:42) Hives methylprednisolone Allergy (Verified 07/10/23 14:42) Rash etanercept [From Enbrel] Adverse Reaction (Intermediate, Verified 07/10/23 14:42) Facial Swelling ibuprofen [Ibuprofen] Adverse Reaction (Intermediate, Verified 07/10/23 14:42) STOMACH UPSET, abdominal pain, nausea and vomiting metformin Adverse Reaction (Intermediate, Verified 07/10/23 14:42) Diarrhea metronidazole [From FLAGYL] Adverse Reaction (Intermediate, Verified 07/10/23 14:42) Diarrhea prednisone Adverse Reaction (Intermediate, Verified 07/10/23 14:42) hallucinations, higher than 20 Medication List - Last Reconciled 07/10/23 by Marry Baum MD aspirin 81 mg PO DAILY 90 days blood sugar diagnostic (FreeStyle Lite Strips) Use 1 test strip three times a day budesonide 0.25 mg inhalation BID 30 days zyrnyrprkd-eypcxvaepmrhg-aejy 50-325-40 mg 1 tab PO Q6H PRN carisoprodol (Soma) 250 mg PO TID PRN codeine-guaifenesin 10-100 mg/5 mL 10 mL PO Q4-6H PRN cyclobenzaprine mg PO dulaglutide (Trulicity) 1.5 mg (0.5 mL) subcut WE@0900 90 days famotidine 20 mg PO BEDTIME 90 days insulin degludec (Tresiba FlexTouch U-100 insulin) 20 units (0.2 mL) subcut BEDTIME 90 days ipratropium bromide 2.5 mL inhalation Q6H PRN ipratropium-albuterol 0.5 mg-3 mg(2.5 mg base)/3 mL 3 mL inhalation Q6H lancets (FreeStyle Lancets) Use 1 lancet once a day letrozole 2.5 mg PO DAILY levalbuterol tartrate 45 mcg/actuation 2 puffs inhalation Q4-6H PRN 30 days lubiprostone (Amitiza) 8 mcg PO BID 90 days nitroglycerin 0.4 mg sublingual Q5M PRN Novolog FlexPen U-100 Insulin (insulin aspart U-100) 2 - 10 units See Protocol subcut TIDAC 30 days NS ondansetron 4 mg PO Q6H PRN ondansetron 8 mg PO Q8H PRN 30 days pantoprazole 40 mg PO BID 90 days pen needle, diabetic (Comfort EZ Pen [place]) Use 1 pen needle 6 times a day prednisone 5 mg PO DAILY 30 days pregabalin (Lyrica) 200 mg PO BID tramadol 50 mg PO Q6H PRN trazodone 100 mg PO BEDTIME 90 days walker with seat Do you need a note to return to daycare/school/sports/work: No HPI Asthma HPI Details Sosa , 63 years old female , comes after 2 months for follow-up. Her main complaint is ongoing cough which is mostly dry, and mostly during the daytime. She does use guaifenesin with codeine syrup once or twice a day. Unfortunately continues to smoke, which should aggravates her cough. She remains on prednisone 5 mg daily for reactive airways. And also uses budesonide 0.25 mg in the nebulizer b.i.d.. Because of her coronary artery disease, and in obgyn hospitalist physician, albuterol HFA has been changed to levalbuterol . She complains of increased cough and shortness of breath since this change. But after I explained to her the reason for the change she understands and say is okay. She also has the nebulizer at home and uses ipratropium solution Q 6 hours p.r.n.. [facility] Medical History (Updated 07/10/23 @ 15:08 by Marry Baum MD) Allergic rhinitis Anxiety Anxiety Atherosclerotic cardiovascular disease Bipolar 1 disorder, depressed Bloody diarrhea Breast pain, right Bronchial asthma CAD (coronary artery disease) Colitis COPD (chronic obstructive pulmonary disease) COPD exacerbation Cough Cough CVA (cerebral vascular accident) Depression Diabetes type 2, uncontrolled Dyslipidemia Fibromyalgia GERD (gastroesophageal reflux disease) HLD (hyperlipidemia) Hospital discharge follow-up HTN (hypertension) Hyperkalemia Hyperlipidemia LDL goal <100 Hyperparathyroidism Hypertension Hypothyroid IDDM (insulin dependent diabetes mellitus) Infiltrating ductal carcinoma of left breast, stage 2 Insomnia Irritable bowel Osteoporosis PAD (peripheral artery disease) Rash Reactive airways dysfunction syndrome Restrictive airway disease Seropositive rheumatoid arthritis T2DM (type 2 diabetes mellitus) Thyroid nodule Vitamin D deficiency Surgical History H/O cardiac catheterization H/O: hysterectomy History of bronchoscopy History of bunionectomy of both great toes History of colonoscopy History of esophagogastroduodenoscopy (EGD) History of lumpectomy of left breast History of pubovaginal sling History of tubal ligation Hx of endoscopy Hx of sigmoidoscopy Family History Mother Diabetes HTN (hypertension) Uterus cancer Malignant tumor of head Breast cancer Father Diabetes HTN (hypertension) CVD (cardiovascular disease) Heart problem Maternal Aunt Breast cancer Brother Myocardial infarction S/P CABG x 4 Family/Other FH: mental illness Family/Other Lung cancer Other Mental health disorder Social History Household Members: Family Household Members Other:: sister Housing: House Are you a primary care tech to a significant other at home: No Do you presently have visiting nurse or other home services: Yes (sister is junior high math teacher) Alcohol intake: never Patient Tobacco Use Status: Current everyday Tobacco user Tobacco use type: Cigarette Cigarettes Per Day: 2 Years Smoked: 50 +/- e-Cigarette/Vaping Use: Never Used Second Hand Smoke Exposure: No Advance Directives Date on File: 12/22/21 service: No Current occupational status: disabled Current occupation: rt handed Cognitive needs: No Hearing needs: No Vision needs: Yes Review of Systems Const All systems reviewed & are unremarkable except as noted in HPI and below Eyes Reports no additional complaints ENT Reports nasal congestion (Mild off and) Card Denies chest pain, Denies irregular heart rhythm and Denies leg edema Resp Reports as per HPI GI Reports heartburn (Controlled with the omeprazole) Reports no additional complaints Musc Reports arthralgias (Case of rheumatoid arthritis) Skin/Breast Reports system reviewed and no additional complaints, except as documented Neuro Reports no additional complaints Psych Reports no additional complaints Physical Exam Vital Signs: Last Vital Signs Pulse 108 H 07/10/23 14:21 BP 128/76 07/10/23 14:21 Pulse Ox 97 07/10/23 14:21 Oxygen Delivery Method Room Air 07/10/23 14:21 BMI result Body Mass Index 22.8 Const General: comfortable, no acute distress, alert and awake Orientation/consciousness: patient oriented x3 HEENT Head: Yes normal to inspection General nose exam: No nasal polyps present and No nasal discharge present Face and sinus: Yes sinuses nontender Mouth: oropharynx normal Throat: Yes posterior oropharynx normal Eyes General: appearance normal, both eyes and all related structures Neck Neck: Yes normal visual inspection, Yes no lymphadenopathy, Yes trachea midline and Yes no JVD Thyroid: Thyroid normal Chest Chest palpation & inspection: normal inspection of the chest, normal palpation of entire chest wall and no tenderness Resp Other: Percussion note is resonant. Breath sounds are distant on both sides. NO WHEEZES ARE HEARD TODAY AND NO CREPITATIONS. Cardio Palpation: normal PMI Rate: regular rate Rhythm: regular rhythm Heart sounds: no gallops and no murmurs Peripheral pulses: Peripheral pulses 2+ throughout GI Palpation (GI): Soft to palpation, nontender, No hepatosplenomegaly present and no masses Auscultation: normal bowel sounds Back/Spine/Pelvis Thoracic/Lumbar Spine: thoracic and lumbar spine normal to inspection Skin General skin exam: no rashes or lesions noted Neuro General: patient oriented x3 and no focal motor deficits Cranial nerves: Yes CN's II-XII intact bilaterally Extrem General: Yes normal to inspection, Yes no clubbing, cyanosis or edema and Yes no calf tenderness Psych Appearance: grossly normal and well kempt Speech and movement: Normal speech and movement present Assessment & Plan Assessment & Plan (1) Smoker: Comment: Has past history of smoking 50 years. Currently smoking about 3-5 cigarettes a day. Counseled once again that she must quit completely. Advised that her frequent cough is definitely related to her ongoing smoking. Code(s): F17.200 - Nicotine dependence, unspecified, uncomplicated (2) Asthma: Comment: Origionaly she had predominantly bronchial asthma, as per pulmonary function test in 2016. Her more recent pulmonary function test is c/w moderately severe restrictive and obstructive airway disorder, without much response to bronchodilator therapy. This indicates that she may be already gone into COPD stage. SHE CONTINUES TO HAVE EXCARBATION OF HER ASTHMA/COPD SYMPTOMS . TX See above under COPD . Will keep her on prednisone 5 mg a day and azithromycin 250 mg on alternate days. Code(s): J45.909 - Unspecified asthma, uncomplicated (3) COPD (chronic obstructive pulmonary disease): Comment: This 62 years old female has been a long-time smoker. She does have moderately severe chronic obstructive pulmonary disease. TX: Ipratropium inh solution one vial in the Neb . q 6 Hrs PRN Levalbuterol HFA 2 puffs q 4-6 Hrs PRN . for wheezing Prednisone 5 mg a Day Azithromycin 250 mg ,three days a week(M,W,F ) Code(s): J44.9 - Chronic obstructive pulmonary disease, unspecified Qualifiers: COPD type: unspecified COPD Qualified Code(s): J44.9 - Chronic obstructive pulmonary disease, unspecified (4) Allergic rhinitis: Comment: Mild chronic, she is on Singulair 10 mg daily and will continue. Code(s): J30.9 - Allergic rhinitis, unspecified (5) Cough: Comment: SHE HAS CHRONIC COUGH, MAINLY DUE TO IRRITATION OF THE UPPER AIRWAYS. IT IS PARTLY AGGRAVATED BY SMOKING. TX : Again stress that she has to quit smoking completely, Use cough drops p.r.n.. Guaifenesin-codeine syrup 100-10 mg/5 ml 122 E spoons Q 6 hours p.r.n. Code(s): R05.9 - Cough, unspecified Quality Reporting (2019) Adult ([facility] 138/01/09/69) Smoking risk assessment performed?: Yes Patient Tobacco Use Status: Current everyday Tobacco user Coding Level of Care Code Est Pt Level 3 (23793) Diagnoses Smoker F17.200 Asthma J45.909 COPD (chronic obstructive pulmonary disease) J44.9 COPD type: unspecified COPD Allergic rhinitis J30.9 Cough R05.9
== END 2023-07-10 14:50 | disposition home or self-care (01) ==
PROVIDERS: PCP Internal Medicine; Visit Provider Internal Medicine
DX: J45.909 Unspecified asthma, uncomplicated (principal); R05.9 Cough, unspecified; F17.210 Nicotine dependence, cigarettes, uncomplicated
CPT/HCPCS: 99213

== ENCOUNTER → 2023-07-10 14:10 | Outpatient (BNVA) | payer MEDICARE, MEDICAID, SELFPAY ==
[2023-04-22 10:17] VITALS: BP 100/64; BP 102/48; BP 110/70; BMI 25.5
== END ==
PROVIDERS: PCP Internal Medicine; Visit Provider Internal Medicine
DX: J44.9 Chronic obstructive pulmonary disease, unspecified (principal); J45.909 Unspecified asthma, uncomplicated; J30.9 Allergic rhinitis, unspecified; F17.210 Nicotine dependence, cigarettes, uncomplicated; Z79.52 Long term (current) use of systemic steroids; Z79.899 Other long term (current) drug therapy
CPT/HCPCS: 99212

== ENCOUNTER 2023-07-24 09:42 | Emergency (ER) | payer MEDICARE, MEDICAID, SELFPAY ==
[2023-07-16 10:06] VITALS: BP 96/60; BP 96/66; BMI 22.5
== END 2023-07-24 10:35 | disposition left against medical advice (07) ==
PROVIDERS: Emergency Provider Emergency Medicine
DX: R69 Illness, unspecified (principal)

== ENCOUNTER 2023-07-26 18:14 | Emergency (ER) | payer MEDICARE, MEDICAID, SELFPAY ==
[2023-07-16 10:06] VITALS: BP 96/60; BP 96/66; BMI 22.5
[2023-07-26 18:59] VITALS: BP 159/83; PULSE 98; RESP 18; TEMP 36.7; O2SAT 98; BMI 22.4
--- NOTE | 2023-07-26 19:00 | ED_ITS ---
HPI - General Adult General Chief complaint: General Medical Stated complaint: abdominal pain Related Data Home Medications Medication Instructions Recorded Confirmed albuterol sulfate 90 mcg/actuation 2 inh inhalation Q4H PRN Shortness 08/23/23 10/08/23 aerosol inhaler Of Breath Or Wheezing mesalamine 1.2 gram tablet,delayed 2.4 g PO DAILY 09/27/23 10/08/23 release pantoprazole 40 mg tablet,delayed 40 mg PO BID@0630,1630 09/27/23 10/08/23 release Previous Rx's Medication Instructions Recorded lancets 28 gauge (FreeStyle #100 ea 06/07/22 Lancets) pen needle, diabetic 31 gauge x #200 ea 06/07/22 5/16 (Comfort EZ Pen [place]) budesonide 0.5 mg/2 mL suspension 0.25 mg inhalation BID ASTHMA/COPD 01/04/23 for nebulization 30 days #60 mL walker #1 ea 02/08/23 letrozole 2.5 mg tablet 2.5 mg PO DAILY #90 tabs 02/12/23 aspirin 81 mg tablet,delayed 81 mg PO DAILY 90 days #90 tabs 06/30/23 release prednisone 5 mg tablet 5 mg PO DAILY for asthma 30 days 07/03/23 #30 tabs ondansetron 4 mg disintegrating 4 mg PO Q6H PRN nausea and 07/04/23 tablet vomiting #14 tabs famotidine 20 mg tablet 20 mg PO BEDTIME 90 days #90 tabs 08/09/23 pregabalin 200 mg capsule (Lyrica) 200 mg PO BID #60 caps 08/14/23 levalbuterol tartrate 45 2 puff inhalation Q4-6H PRN 08/20/23 mcg/actuation aerosol inhaler shortness of breath 30 days #15 grams morphine 15 mg immediate release 15 mg PO Q8H PRN pain #15 tabs 08/29/23 tablet blood sugar diagnostic (FreeStyle #100 ea 08/30/23 Lite Strips) trazodone 100 mg tablet 100 mg PO BEDTIME 90 days #90 tabs 09/27/23 prednisone 10 mg tablet See Taper PO DIRECTED #30 tabs 09/30/23 fluticasone furoate 200 1 inh inhalation RDAILY #60 ea 10/04/23 mcg-vilanterol 25 mcg/dose inhalation powder (Breo Ellipta) prednisone 20 mg tablet 40 mg (2 x 20 mg) PO DAILY #8 tabs 10/04/23 pyridoxine (vitamin B6) 100 mg 100 mg PO DAILY 90 days #90 tabs 10/08/23 tablet ipratropium bromide 0.02 % 2.5 ml inhalation Q6H PRN 10/22/23 solution for inhalation shortness of breath or wheezing #150 mL dulaglutide 1.5 mg/0.5 mL 1.5 mg (0.5 mL) subcut TH@0900 #6 10/28/23 subcutaneous pen injector mL (Trulicity) codeine 10 mg-guaifenesin 100 mg/5 10 ml PO Q4-6H PRN allergy 10/30/23 mL oral liquid symptoms/cough 30 days #473 mL Allergies Allergy/AdvReac Type Severity Reaction Status Date / Time dog dander [DOGS] Allergy Intermediate Respiratory Verified 10/08/23 09:39 distress shellfish derived Allergy Intermediate Hives Verified 10/08/23 09:39 methylprednisolone Allergy Rash Verified 10/08/23 09:39 etanercept [From Enbrel] AdvReac Intermediate Facial Verified 10/08/23 09:39 Swelling ibuprofen [Ibuprofen] AdvReac Intermediate STOMACH Verified 10/08/23 09:39 UPSET, abdominal pain, nausea and vomiting metformin AdvReac Intermediate Diarrhea Verified 10/08/23 09:39 metronidazole [From FLAGYL] AdvReac Intermediate Diarrhea Verified 10/08/23 09:3 9 prednisone AdvReac Intermediate hallucinations, Verified 10/08/23 09:39 higher than 20 PMFSH Past Medical History Medical History Acute respiratory distress Hospital discharge follow-up Tendonitis of ankle or foot Colitis Cough Anxiety CAD (coronary artery disease) HLD (hyperlipidemia) HTN (hypertension) T2DM (type 2 diabetes mellitus) COPD exacerbation Hyperkalemia Atherosclerotic cardiovascular disease GERD (gastroesophageal reflux disease) CVA (cerebral vascular accident) Breast pain, right Rash Bloody diarrhea PAD (peripheral artery disease) Hyperlipidemia LDL goal <100 COPD (chronic obstructive pulmonary disease) Infiltrating ductal carcinoma of left breast, stage 2 Insomnia Dyslipidemia Bipolar 1 disorder, depressed Cough Restrictive airway disease Hypothyroid IDDM (insulin dependent diabetes mellitus) Vitamin D deficiency Osteoporosis Hyperparathyroidism Thyroid nodule Depression Fibromyalgia Seropositive rheumatoid arthritis Reactive airways dysfunction syndrome Allergic rhinitis Irritable bowel Anxiety Bronchial asthma Diabetes type 2, uncontrolled Hypertension Surgical History Hx of sigmoidoscopy History of bronchoscopy Hx of endoscopy H/O cardiac catheterization History of lumpectomy of left breast History of pubovaginal sling History of esophagogastroduodenoscopy (EGD) History of tubal ligation History of colonoscopy History of bunionectomy of both great toes H/O: hysterectomy Family History Family History Mother Diabetes HTN (hypertension) Uterus cancer Malignant tumor of head Breast cancer Father Diabetes HTN (hypertension) CVD (cardiovascular disease) Heart problem Maternal Aunt Breast cancer Brother Myocardial infarction S/P CABG x 4 Family/Other FH: mental illness Family/Other Lung cancer Other Mental health disorder Social History Social History Household Members: Family Household Members Other:: sister Housing: House Are you a primary critical care nurse practitioner to a significant other at home: No Do you presently have visiting nurse or other home services: Yes (sister is pt's network operations specialist) Unable to assess alcohol history related to: Unknown Alcohol intake: never Patient Tobacco Use Status: Current everyday Tobacco user Tobacco use type: Cigarette Cigarette Packs Per Day: 0.5 Years Smoked: 12 e-Cigarette/Vaping Use: Never Used Second Hand Smoke Exposure: No Use of substances other than those prescribed or required for medical reasons: No Substance Use Type: Marijuana Have you been hit, kicked, punched, or otherwise hurt by someone within the past year? If so, by whom?: No Advance Directives Date on File: 12/22/21 Do you have thoughts of harming others: None Do you have a plan to hurt others: No Plan Do you have the means to hurt others: No Recently lost weight without trying: Yes How much weight loss: 2-13 pounds Eating poorly because of decreased appetite: Yes Nutrition screen score: 4 Patient : No service: No Current occupational status: disabled Current occupation: rt handed Cognitive needs: No Hearing needs: No Vision needs: Yes Physical Exam ED Vital Signs: BMI result Body Mass Index 22.4 Course Course Course Narrative: RME- 63-year-old female presents for evaluation of right-sided abdominal pain that started 5 hours ago. Pain was initially repaired abdomen but radiates to her right lower abdomen and groin. Plan for labs, UA Discharge Plan Discharge Clinical Impression: Abdominal pain Patient Disposition: Left Without Being Seen Interventions: LWBS Worksheet Last Done: 07/26/23 21:44 Discharge Date/Time: 07/26/23 22:04
== END 2023-07-26 22:04 | disposition left against medical advice (07) ==
LOC: HO.ED 21:57
PROVIDERS: Emergency Provider Emergency Medicine; PCP Internal Medicine
DX: R10.2 Pelvic and perineal pain (principal); R10.30 Lower abdominal pain, unspecified; E11.9 Type 2 diabetes mellitus without complications; I10 Essential (primary) hypertension; E78.5 Hyperlipidemia, unspecified; F17.210 Nicotine dependence, cigarettes, uncomplicated; Z86.73 Personal history of transient ischemic attack (TIA), and cerebral infarction without residual deficits; Z79.899 Other long term (current) drug therapy; Z79.4 Long term (current) use of insulin; Z79.82 Long term (current) use of aspirin
CPT/HCPCS: 99281; 99283

== ENCOUNTER 2023-08-09 12:12 | Outpatient (AMB) | payer MEDICARE, MEDICAID, SELFPAY ==
[2023-07-16 10:06] VITALS: BP 96/60; BP 96/66; BMI 22.5
[2023-08-09 12:31] VITALS: BP 136/88; PULSE 95; O2SAT 100; BMI 22.6
--- NOTE | 2023-08-09 12:31 | MHC.PC.OV ---
Vital Signs 08/09/23 12:31 Height 4 ft 10 in Weight 108 lb 0.6 oz BMI 22.6 BP 136/88 Blood Pressure Location Rt brachial Position Sitting Pulse 95 Pulse Source Pulse Oximeter Temp Source Skin Pulse Oximetry (%) 100 Oxygen Delivery Method Room Air Intake Visit Reasons: [facility] 07/24 Intake Note: Patient is here to follow-up after a visit the emergency department at [facility] on 07/24 for asthma and diverticulitis Allergies dog dander [DOGS] Allergy (Intermediate, Verified 08/09/23 13:29) Respiratory distress shellfish derived Allergy (Intermediate, Verified 08/09/23 13:29) Hives methylprednisolone Allergy (Verified 08/09/23 13:29) Rash etanercept [From Enbrel] Adverse Reaction (Intermediate, Verified 08/09/23 13:29) Facial Swelling ibuprofen [Ibuprofen] Adverse Reaction (Intermediate, Verified 08/09/23 13:29) STOMACH UPSET, abdominal pain, nausea and vomiting metformin Adverse Reaction (Intermediate, Verified 08/09/23 13:29) Diarrhea metronidazole [From FLAGYL] Adverse Reaction (Intermediate, Verified 08/09/23 13:29) Diarrhea prednisone Adverse Reaction (Intermediate, Verified 08/09/23 13:29) hallucinations, higher than 20 Medication List - Last Reconciled 08/09/23 by ARTEMIO Hernandez aspirin 81 mg PO DAILY 90 days blood sugar diagnostic (FreeStyle Lite Strips) Use 1 test strip three times a day budesonide 0.25 mg inhalation BID 30 days qhvktldqph-ruvprkstjvojm-eobi 50-325-40 mg 1 tab PO Q6H PRN carisoprodol (Soma) 250 mg PO TID PRN codeine-guaifenesin 10-100 mg/5 mL 10 mL PO Q4-6H PRN cyclobenzaprine mg PO dulaglutide (Trulicity) 1.5 mg (0.5 mL) subcut WE@0900 90 days famotidine 20 mg PO BEDTIME 90 days insulin degludec (Tresiba FlexTouch U-100 insulin) 20 units (0.2 mL) subcut BEDTIME 90 days ipratropium bromide 2.5 mL inhalation Q6H PRN ipratropium-albuterol 0.5 mg-3 mg(2.5 mg base)/3 mL 3 mL inhalation Q6H lancets (FreeStyle Lancets) Use 1 lancet once a day letrozole 2.5 mg PO DAILY levalbuterol tartrate 45 mcg/actuation 2 puffs inhalation Q4-6H PRN 30 days lubiprostone (Amitiza) 8 mcg PO BID 90 days morphine mg PO nitroglycerin 0.4 mg sublingual Q5M PRN Novolog FlexPen U-100 Insulin (insulin aspart U-100) 2 - 10 units See Protocol subcut TIDAC 30 days NS ondansetron 4 mg PO Q6H PRN ondansetron 8 mg PO Q8H PRN 30 days pantoprazole 40 mg PO BID 90 days pen needle, diabetic (Comfort EZ Pen Baker) Use 1 pen needle 6 times a day prednisone 5 mg PO DAILY 30 days pregabalin (Lyrica) 200 mg PO BID tramadol 50 mg PO Q6H PRN trazodone 100 mg PO BEDTIME 90 days walker with seat Tobacco use date assessed: 08/09/23 Dental Screening Dental Screen Date: 08/09/23 Did you have a dental visit in the last 12 months?: Yes Did you have a dental problem in the last 6 months where you did not have access to dental care?: No Was dental information given to patient?: Patient has dentist HPI [facility] 07/24 HPI Details Patient is a 63-year-old female who presents today to follow-up after [facility] Emergency Department visit 07/24/2023 due to GI bleed and shortness of breath. Patient of Dr. Garcia. Per ED notes, patient presented to ED with severe abdominal pain, she has history of colitis and diverticulitis in the past. She also complained of right red blood per rectum. Pain was 10/10 scale. Patient has history of COPD. Patient felt short of breath of which she believes is secondary to the heat. She denied cough or fever or chills. Guaiac negative. Patient was diagnosed with recurrent colitis, patient reported that she has starts usually with constipation, then rectal bleeding and then loose stools. Chest x-ray with no acute findings. Blood work was reassuring. CT abdomen consistent with colitis involving the descending colon and sigmoid colon similar to prior exams, scattered colonic diverticuli also noted. Patient was diagnosed with COPD exacerbation due to weather conditions. Patient had stable hemoglobin hematocrit. Patient was discharged home with Zofran, Augmentin b.i.d. for 5 days and morphine for pain. Patient has an upcoming appointment with GI Dr. Roman 08/16/2023. Today, patient reports that her abdominal pain was improving, although 1 week ago she started with worsening abdominal pain in her right upper quadrant which radiates down to her right lower quadrant/groin/right low back. She also reports generalized abdominal pain presently 7/10 scale. Patient reports that after emergency department visit she could not move bowel movement for 1 week, and then 1 week after discharge she started with diarrhea, she reports diarrhea 2 times this week, last episode this morning. No blood in stool. Patient reports starting with nausea 3 days ago. She also reports that she can feel lineal bulging area on her abdomen which is painful as well. She has finished all antibiotics. Denies vomiting. Denies any urinary symptoms. Denies fever or chills. [facility] Medical History (Updated 08/09/23 @ 15:33 by ARTEMIO Hernandez) Colitis Cough Anxiety CAD (coronary artery disease) HLD (hyperlipidemia) HTN (hypertension) T2DM (type 2 diabetes mellitus) COPD exacerbation Hyperkalemia Atherosclerotic cardiovascular disease Hospital discharge follow-up GERD (gastroesophageal reflux disease) CVA (cerebral vascular accident) Breast pain, right Rash Bloody diarrhea PAD (peripheral artery disease) Hyperlipidemia LDL goal <100 COPD (chronic obstructive pulmonary disease) Infiltrating ductal carcinoma of left breast, stage 2 Insomnia Dyslipidemia Bipolar 1 disorder, depressed Cough Restrictive airway disease Hypothyroid IDDM (insulin dependent diabetes mellitus) Vitamin D deficiency Osteoporosis Hyperparathyroidism Thyroid nodule Depression Fibromyalgia Seropositive rheumatoid arthritis Reactive airways dysfunction syndrome Allergic rhinitis Irritable bowel Anxiety Bronchial asthma Diabetes type 2, uncontrolled Hypertension Surgical History Hx of sigmoidoscopy History of bronchoscopy Hx of endoscopy H/O cardiac catheterization History of lumpectomy of left breast History of pubovaginal sling History of esophagogastroduodenoscopy (EGD) History of tubal ligation History of colonoscopy History of bunionectomy of both great toes H/O: hysterectomy Family History Mother Diabetes HTN (hypertension) Uterus cancer Malignant tumor of head Breast cancer Father Diabetes HTN (hypertension) CVD (cardiovascular disease) Heart problem Maternal Aunt Breast cancer Brother Myocardial infarction S/P CABG x 4 Family/Other FH: mental illness Family/Other Lung cancer Other Mental health disorder Social History Household Members: Family Household Members Other:: sister Housing: House Are you a primary career and guidance counselor to a significant other at home: No Do you presently have visiting nurse or other home services: Yes (sister is staff development coordinator) Alcohol intake: never Patient Tobacco Use Status: Current everyday Tobacco user Tobacco use type: Cigarette Cigarette Packs Per Day: 1 Cigarettes Per Day: 2 Years Smoked: 12 e-Cigarette/Vaping Use: Never Used Second Hand Smoke Exposure: No Advance Directives Date on File: 12/22/21 service: No Current occupational status: disabled Current occupation: rt handed Cognitive needs: No Hearing needs: No Vision needs: Yes Questionnaire Thrive Questionnaire Date Thrive assessed: 12/17/22 AUDIT C Alcohol Use Questionnaire (AUDIT-C) 1. How often do you have a drink containing alcohol?: Never Total Score: 0 Score Reviewed/Action Taken: No FLAVIA-7 AMB Questionnaire FLAVIA-7 Date FLAVIA - 7 assessed: 12/17/22 Source: Developed by Drs. Hernandez Norris, Gissell Solorzano, Gilmar Szymanski and colleagues, with an educational chris from [employer]. Review of Systems Const Denies body aches, Denies chills, Denies fever(s) and Denies headache(s) ENT Denies dizziness, Denies otalgia, Denies headache(s), Denies nasal discharge, Denies sinus pain and Denies sore throat Card Denies chest pain, Denies edema, Denies lightheadedness and Denies dyspnea Resp Denies cough, Denies dyspnea and Denies wheezing GI Reports abdominal pain, Denies hematochezia, Denies constipation, Reports diarrhea, Reports nausea and Denies vomiting Denies hematuria and Denies dysuria Musc Denies myalgias Skin/Breast Reports as per HPI and Denies rash Neuro Denies dizziness and Denies headache(s) Aller/Immun Denies wheezing Physical exam (Primary Care) Vital Signs: Last Vital Signs Pulse 95 08/09/23 12:31 BP 136/88 08/09/23 12:31 Pulse Ox 100 08/09/23 12:31 Oxygen Delivery Method Room Air 08/09/23 12:31 BMI result Body Mass Index 22.6 Tobacco/Smoking Status: Tobacco use Status Tobacco use date assessed 08/09/23 08/09/23 12:32 Patient Tobacco Use Status Current everyday Tobacco 08/09/23 12:32 Tobacco use type Cigarette 08/09/23 12:32 e-Cigarette/Vaping Use Never Used 08/09/23 12:32 Thrive Assessment: Date of Thrive Assessment Date Thrive assessed 12/17/22 08/09/23 12:32 Const General: cooperative and no acute distress Orientation/consciousness: patient oriented x3 HENMT Head: Yes normocephalic and Yes atraumatic Throat: Yes posterior oropharynx normal Eyes General: appearance normal, both eyes and all related structures Neck Neck: Yes normal visual inspection and Yes full ROM Resp Effort & Inspection: normal respiratory effort and able to speak in complete sentences Auscultation: clear to auscultation bilaterally (RUL and ISAIAS ), no crackles, no rales, no rhonchi and wheezes expiratory wheezes (Fine lower bilaterally) Cardio Rate: regular rate Rhythm: regular rhythm Heart sounds: S1 normal heart sound present and S2 normal heart sound present GI Palpation (GI): Soft to palpation, not firm, Tenderness to palpation present (GI) in the LLQ, in the RLQ, in the RUQ, suprapubicly and Lopez's sign positive; with no rebound tenderness, no guarding, not rigid and no hepatosplenomegaly Auscultation: normal bowel sounds General: No CVA tenderness Back/Spine/Pelvis Back: No CVA tenderness Skin General skin exam: no rashes or lesions noted Full body images: 1. Right abdomen with palpable linear area, patient reports tenderness, skin is intact Neuro General: patient oriented x3 Gait exam (Neuro): Normal gait present Extrem General: Yes full ROM and No edema Assessment and Plan Assessment & Plan (1) Colitis: Code(s): K52.9 - Noninfective gastroenteritis and colitis, unspecified Plan: Please see HPI and physical exam for details, due to worsening symptoms patient was instructed to go to the emergency department for an evaluation and treatment. Patient reports that she will walk to [facility] emergency department for an evaluation. Report was called in to [facility] by [employer] [facility]. Patient agreed with the plan. Keep appointment with GI provider as scheduled. (2) COPD (chronic obstructive pulmonary disease): Comment: This 62 years old female has been a long-time smoker. She does have moderately severe chronic obstructive pulmonary disease. TX: Ipratropium inh solution one vial in the Neb . q 6 Hrs PRN Levalbuterol HFA 2 puffs q 4-6 Hrs PRN . for wheezing Prednisone 5 mg a Day Azithromycin 250 mg ,three days a week(M,W,F ) Code(s): J44.9 - Chronic obstructive pulmonary disease, unspecified Qualifiers: COPD type: unspecified COPD Qualified Code(s): J44.9 - Chronic obstructive pulmonary disease, unspecified Plan: Encouraged smoking cessation Continue current inhalers and nebulizer treatment as prescribed Patient is on prednisone as well Medications: Refilled pantoprazole 40 mg PO BID 90 days 180 tabs 0RF K21.9 - Gastro-esophageal reflux disease without esophagitis, R13.10 - Dysphagia, unspecified famotidine 20 mg PO BEDTIME 90 days 90 tabs 1RF Coding Level of Care Code Est Pt Level 3 (32378) Diagnoses Colitis K52.9 Chronic obstructive pulmonary disease, unspecified COPD type J44.9 COPD type: unspecified COPD
== END 2023-08-09 13:56 | disposition home or self-care (01) ==
PROVIDERS: PCP Internal Medicine; Visit Provider Nurse Practitioner Family
DX: K52.9 Noninfective gastroenteritis and colitis, unspecified (principal); J44.9 Chronic obstructive pulmonary disease, unspecified
CPT/HCPCS: 99213

== ENCOUNTER 2023-08-16 07:16 | Outpatient (AMB) | payer MEDICARE, MEDICAID, SELFPAY ==
[2023-07-16 10:06] VITALS: BP 96/60; BP 96/66; BMI 22.5
[2023-08-12 14:54] VITALS: BP 96/66; BMI 22.5
--- NOTE | 2023-08-16 07:21 | MHC.OFFVIS ---
Intake Vital Signs 08/16/23 07:29 Height 4 ft 10 in BP 138/76 Blood Pressure Location Lt brachial Position Sitting Pulse 111 H Intake Visit Reasons: Rectal bleeding Intake Note: Patient ED follow up for rectal bleeding. Patient cc: N/V, abdominal pain, GERD, constipation x couples of dates with out any BM. Also patient went for second time to the ED due kidney stones. Stone Decorator Required: No Accompanied by: Self / Same As Patient Allergies dog dander [DOGS] Allergy (Intermediate, Verified 08/09/23 13:29) Respiratory distress shellfish derived Allergy (Intermediate, Verified 08/09/23 13:29) Hives methylprednisolone Allergy (Verified 08/09/23 13:29) Rash etanercept [From Enbrel] Adverse Reaction (Intermediate, Verified 08/09/23 13:29) Facial Swelling ibuprofen [Ibuprofen] Adverse Reaction (Intermediate, Verified 08/09/23 13:29) STOMACH UPSET, abdominal pain, nausea and vomiting metformin Adverse Reaction (Intermediate, Verified 08/09/23 13:29) Diarrhea metronidazole [From FLAGYL] Adverse Reaction (Intermediate, Verified 08/09/23 13:29) Diarrhea prednisone Adverse Reaction (Intermediate, Verified 08/09/23 13:29) hallucinations, higher than 20 Medication List - Last Reconciled 08/16/23 by Ruth Roman MD aspirin 81 mg PO DAILY 90 days blood sugar diagnostic (FreeStyle Lite Strips) Use 1 test strip three times a day budesonide 0.25 mg inhalation BID 30 days nnbryibwfj-emfzstncrakuc-jvgl 50-325-40 mg 1 tab PO Q6H PRN carisoprodol (Soma) 250 mg PO TID PRN codeine-guaifenesin 10-100 mg/5 mL 10 mL PO Q4-6H PRN cyclobenzaprine mg PO dulaglutide (Trulicity) 1.5 mg (0.5 mL) subcut WE@0900 90 days famotidine 20 mg PO BEDTIME 90 days insulin degludec (Tresiba FlexTouch U-100 insulin) 20 units (0.2 mL) subcut BEDTIME 90 days ipratropium bromide 2.5 mL inhalation Q6H PRN ipratropium-albuterol 0.5 mg-3 mg(2.5 mg base)/3 mL 3 mL inhalation Q6H lancets (FreeStyle Lancets) Use 1 lancet once a day letrozole 2.5 mg PO DAILY levalbuterol tartrate 45 mcg/actuation 2 puffs inhalation Q4-6H PRN 30 days lubiprostone (Amitiza) 8 mcg PO BID 90 days morphine mg PO nitroglycerin 0.4 mg sublingual Q5M PRN Novolog FlexPen U-100 Insulin (insulin aspart U-100) 2 - 10 units See Protocol subcut TIDAC 30 days NS ondansetron 4 mg PO Q6H PRN ondansetron 8 mg PO Q8H PRN 30 days pantoprazole 40 mg PO BID 90 days pen needle, diabetic (Comfort EZ Pen [place]) Use 1 pen needle 6 times a day prednisone 5 mg PO DAILY 30 days pregabalin (Lyrica) 200 mg PO BID tramadol 50 mg PO Q6H PRN trazodone 100 mg PO BEDTIME 90 days walker with seat HPI Rectal bleeding HPI Details GI CLINIC VISIT FOR THIS 63-YEAR-OLD FEMALE FOR FU OF GERD AND DYSPHAGIA PT IS KNOWN TO ME FROM PAST GI VISITS FOR COLITIS SEEN ON CT SCAN AND FOR POSITIVE HEP A AB (IG M) [place] [facility] [place] with abdominal pain, nausea and vomiting. HAD BRONCHOSCOPY ON 08/16? , FOUND TO HAVE GENERALIZED INFLAMMATION.? AND ENDOBRONCHIAL LESION IN THE RIGHT LOWER LOBE WAS SUSPECTED. BIOPSY AND CYTOLOGY IS CONSISTENT WITH MILD INFLAMMATORY CHANGES, NO METAPLASIA NEOPLASTIC CELLS. IMAGING STUDIES:? US WITH DUPLEX: Elevated velocity in the proximal superior mesenteric artery is nonspecific. By velocity criteria, this is consistent with hemodynamically significant stenosis. However, the distal waveforms are not indicative of significant upstream disease and there is no significant stenosis seen on CT from 02/01/2023. 10/2022 BARIUM SWALLOW SHOWED: Following oral administration of thick, thin barium and barium-coated turkey in upright view, there is normal propagation of bolus from the oral cavity through the pharynx, esophagus into stomach without obstruction, narrowing or stricture. There is mild prominence of cricoesophageal sphincter indenting the upper esophagus. There is mild ventral spondylosis at the C5-C6 and C6-C7 disc levels with minimal indentation on the posterior cervical esophageal wall. However, there is no obstruction. On oral administration of barium tablet, there is transient holdup in the mid esophagus and slightly longer in the distal esophagus. 02/21/22 ABD US SHOWED: 1.? Increased hepatic echogenicity suggesting hepatic steatosis. 2.? Nonobstructive calculus in the right renal lower pole measuring 3 mm. 02/[address] SCAN SHOWED: A cause for the patient's diffuse abdominal pain has not been found. Incidental note made of: 1.? Hepatic steatosis. 2.? Small stable adrenal nodule, unchanged over many years 3.? Status post hysterectomy. 08/[address] SCAN SHOWED: Mild bowel wall thickening of the sigmoid colon which could be due to a mild colitis. There is no surrounding pericolonic edema however. There is no bowel obstruction. ENDOSCOPIC STUDIES: 05/2023 CAPSULE ENDOSCOPY SHOWED: Findings: Lower esophagus looked normal, stomach with granular mucosa and patchy erythema consistent with chronic gastritis small bowel entered at 2 hr 36 min min. Mucosa well visualized and appeared normal, no masses, lesions or ulcers seen. cecum entered at 4 hr 44 min and colonic mucosa looked normal Conclusion: chronic gastritis, other santiago neg small bowel study 06/15/22 EGD SHOWED: ESOPHAGUS: Tortuous esophagus with increased tertiary contractions without stricture or ring.? GE junction at 36 cms. No esophagitis or Austin's. STOMACH: Moderate diffuse gastric erythema - no ulcers were seen. Biopsies were obtained from gastric antrum and body. DUODENUM: Normal - biopsied to check for celiac sprue Plan:? Further evaluation with a Duplex US to rule out small bowel ischemia [place] of Dicyclomine prn while awaiting further workup. BIOPSIES SHOWED: A.? Small bowel, biopsy:? Small bowel mucosa with preserved villi and no specific change; no evidence of celiac disease. B.? Gastric antrum, biopsy:? Chronic Helicobacter gastritis with minimal activity and focal intestinal metaplasia; negative for dysplasia.? C.? Gastric body, biopsy:? Chronic Helicobacter gastritis with minimal activity; negative for intestinal metaplasia and dysplasia. 03/24/21 COLONOSCOPY SHOWED: No polyps were detected. Random biopsies were obtained from the right and left colon Moderate to severe diverticulosis seen in the entire colon Of note pt denies additional episodes of fecal incontinence. Plan:? Patient has an appointment on 04/20/21 in the GI Clinic with Ruth Roman M.D. Repeat Colonoscopy in 10 years if biopsies are normal. A handout on diverticulosis was were given in the discharge area BIOPSIES SHOWED: A.? Colon, right, biopsy:? Colonic mucosa within normal limits. B.? Colon, left, biopsy:? Colonic mucosa within normal limits. COMMENT: Diagnostic features of microscopic colitis are not seen. 08/2019:? Colonoscopy Findings: Edema, erythema with friable appearing mucosa and scattered ulcerations from 10 to 30 cms - random biopsies obtained. Colon inflammation can be due to ischemic colitis or stercoral ulcers related to constipation and irritation of the colon from hard stools. No polyps were detected Moderate to severe diverticulosis seen in the left colon. Plan: Await pathology results. Regular diet today. Start Miralax once daily for constipation. Continue IV antibiotics x 24 hours and then switch to PO antibiotics in the am for another 3 days. Patient to be scheduled for a FU appointment in the GI Clinic with Ruth Roman M.D. in 1-2 weeks. Above findings were reviewed with the patient. BIOPSIES SHOWED: Colon, left, biopsies: Colonic mucosa with focal superficial epithelial sloughing, hemorrhage and hyalinization possibly representing early ischemic colitis;? negative for dysplasia/malignancy. TODAY'S VISIT: Seen at [facility] ER on 07/24/23 with abd pain and rectal bleeding CT scan was done and pt informed she had diverticulitis and treated with PO antibiotics (amox) for a week. Seen again on 08/10 at [facility] and had repeat CT scan which showed colitis and kidney stones Prescribed amoxicillin x 10 days and oxycodone and has not passed the kidney stone yet. PAST VISITS: Lab results reviewed - IBD serology suggestive of Crohn's disease Pt [place] [facility] [place] with chest pain and dubois was negative. Pt is on sulfasalazine for RA which is on hold to see if nausea gets better. 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 Unable to take biologics for RA due to COPD. Tried Humira and had to be stopped due to facial swelling. Tried Embril and was stopped due to worsening COPD. She was told by her Documentation Clerk that she is unable to use biologics I have been feeling horrible Has dizziness and nausea x past 3 weeks. Went to bed Saturday night and noted pain in the pit of the stomach. Had chills, felt hot and cold and had sweating and generalized itching Bodega better yesterday and had diarrhea. Feels a little better today. Has been taking Marijuana once a day for nausea for the past 2 weeks and it helps the nausea. [place] [facility] [place]26[place] with an episode of ischemic colitis and evaluated by Flex Sig Pt completed course of antibiotics prescribed at discharge. Pt complains of a nausea, abdominal pain, sour stomach and diarrhea with black stools for the past 3 days. Having 4 pudding like stools a day. Abd pain comes and goes. Pt complains of sweating and denies fevers. Pt complains of weakness and dizziness. Denies hx of PUD, aspirin or NSAID use. Took peptobismol 1 tablet last Saturday which did not help the pain. Takes Ondansetron for nausea which has not been helpful. PAST VISTS: Seen at [facility] [place] in Nov and early Dec with abdominal pain, nausea and vomiting. Discharged home on Prednisone and had to return with worsening abdominal pain. Thinks prednisone may have aggravated the pain. Doing pretty good today. Notes intermittent nausea Appetite is fair. Few days ago, she noted cramping related to constipation. She was able to have a BM with diarrhea and pain improved Has a BM twice a week - no BM in the past 4 days. Takes Amitiza twice daily for constipation and Senna prn when she feels constipated. Started on sulfasalazine 2 months ago for RA - unable to tolerate biologics Pt stopped taking pantoprazole 2 months ago (she was told by the pharmacist that she cant take Pantoprazole with Famotidine) Pt advised to resume Pantoprazole Weight is 113 lbs - gained 4 lbs. She stopped the brillinta 2 weeks ago since her symptoms get worse after taking these medications. Wt loss from 140 in Dec, 2021 to 115 lbs since she is eating less. Hospitalized with NSTEMI in Dec, 2021 and had 2 stents. Taking aspirin and Brilinta twice a day Had an MRI on the brain and changes noted on the right and left side Waiting to see a Neurologist. Noted HAs and nausea since 12/22/21 - assumed nausea was due to migraines. Still having some ZHENG's. Nausea is constant. Notes heartburn and regurgitation in the middle of the night She is unable to breath and has? water brash. Not eating and loosing weight. Denies constipation or diarrhea. Patient notes heartburn and dysphagia to solids and liquids. Gained 5 lbs in 2 weeks. Has COPD and asthma. Patient denies known family history of colon polyps or colon cancer [facility] Medical History (Updated 08/16/23 @ 07:54 by Ruth Roman MD) Colitis Cough Anxiety CAD (coronary artery disease) HLD (hyperlipidemia) HTN (hypertension) T2DM (type 2 diabetes mellitus) COPD exacerbation Hyperkalemia Atherosclerotic cardiovascular disease Hospital discharge follow-up GERD (gastroesophageal reflux disease) CVA (cerebral vascular accident) Breast pain, right Rash Bloody diarrhea PAD (peripheral artery disease) Hyperlipidemia LDL goal <100 COPD (chronic obstructive pulmonary disease) Infiltrating ductal carcinoma of left breast, stage 2 Insomnia Dyslipidemia Bipolar 1 disorder, depressed Cough Restrictive airway disease Hypothyroid IDDM (insulin dependent diabetes mellitus) Vitamin D deficiency Osteoporosis Hyperparathyroidism Thyroid nodule Depression Fibromyalgia Seropositive rheumatoid arthritis Reactive airways dysfunction syndrome Allergic rhinitis Irritable bowel Anxiety Bronchial asthma Diabetes type 2, uncontrolled Hypertension Surgical History Hx of sigmoidoscopy History of bronchoscopy Hx of endoscopy H/O cardiac catheterization History of lumpectomy of left breast History of pubovaginal sling History of esophagogastroduodenoscopy (EGD) History of tubal ligation History of colonoscopy History of bunionectomy of both great toes H/O: hysterectomy Family History Mother Diabetes HTN (hypertension) Uterus cancer Malignant tumor of head Breast cancer Father Diabetes HTN (hypertension) CVD (cardiovascular disease) Heart problem Maternal Aunt Breast cancer Brother Myocardial infarction S/P CABG x 4 Family/Other FH: mental illness Family/Other Lung cancer Other Mental health disorder Social History Household Members: Family Household Members Other:: sister Housing: House Are you a primary home health care worker to a significant other at home: No Do you presently have visiting nurse or other home services: Yes (sister is hospice music therapist) Alcohol intake: never Patient Tobacco Use Status: Current everyday Tobacco user Tobacco use type: Cigarette Cigarette Packs Per Day: 1 Cigarettes Per Day: 2 Years Smoked: 12 e-Cigarette/Vaping Use: Never Used Second Hand Smoke Exposure: No Advance Directives Date on File: 12/22/21 service: No Current occupational status: disabled Current occupation: rt handed Cognitive needs: No Hearing needs: No Vision needs: Yes Review of Systems Const All systems reviewed & are unremarkable except as noted in HPI and below Physical Exam Vital Signs: Last Vital Signs Pulse 111 H 08/16/23 07:29 BP 138/76 08/16/23 07:29 Const General: healthy appearing and no acute distress Nutritional Appearance: average body habitus Orientation/consciousness: patient oriented x3 Limitations: no limitations HEENT Head: Yes normal to inspection Ears: hearing grossly normal bilaterally Eyes Sclerae: sclerae normal Pupils: Equal, round and reactive pupils present Neck Neck: Yes normal visual inspection Chest Chest palpation & inspection: normal inspection of the chest Resp Effort & Inspection: normal respiratory effort Auscultation: clear to auscultation bilaterally Cardio Palpation: normal PMI Rate: regular rate Rhythm: regular rhythm Heart sounds: S1 normal heart sound present, S2 normal heart sound present and no murmurs GI Palpation (GI): Soft to palpation, Tenderness to palpation present (GI) (Mild right abdominal tenderness) and No hepatosplenomegaly present Auscultation: normal bowel sounds Rectal Exam - Female: deferred Skin General skin exam: no rashes or lesions noted Neuro General: patient oriented x3, gait normal and moves all extremities Cranial nerves: Yes Equal, round and reactive pupils present Psych Appearance: grossly normal Mental Status: mental status grossly normal Assessment & Plan Assessment & Plan (1) Colitis: Code(s): K52.9 - Noninfective gastroenteritis and colitis, unspecified (2) GERD (gastroesophageal reflux disease): Code(s): K21.9 - Gastro-esophageal reflux disease without esophagitis (3) History of ischemic colitis: Code(s): Z87.19 - Personal history of other diseases of the digestive system (4) History of Helicobacter pylori infection: Code(s): Z86.19 - Personal history of other infectious and parasitic diseases (5) Kidney stones: Code(s): N20.0 - Calculus of kidney Plan 63 YF with rheumatoid arthritis--[facility]ista @ [facility] [place]-discharged, COPD, fibromyalgia, asthma, Elevated levels of transaminases? & lactic acid dehydrogenase, Hepatic steatosis Thalamic pain syndrome,? H. pylori infection - treated, IBS (irritable bowel syndrome), TIA'S, urinary incontinence, chronic bronchitis, anxiety, depression, diabetes mellitus, left breast? cancer. Patient followed in GI for GERD and long standing constipation?likely due to IBS with constipation/ slow transit due to medications. Partial? improvement with Senna 1-2 tablet at? bedtime. Patient was diagnosed with Helicobacter pylori gastritis on EGD in?06/2018 and was treated with triple therapy. 06/2021 FU stool antigen for H pylori was negative Pt was advised to start Pantoprazole twice daily for GERD She has a hx of dysphagia likely due to esophageal motility disorder - no stricture or EOE noted on past EGD. Pt has been followed recently for upper abdominal pain, nausea and vomiting with decreased PO intake and wt loss 06/15/22 EGD was performed in findings as noted above Pt was advised to use a Foam Wedge at night and take famotidine at bedtime for nighttime reflux symptoms. If symptoms persist she may need further evaluation with Esophageal manometry and pH testing prior to considering fundoplication. 01/10/23 Pt seen with worsening symptoms, stopped taking Pantoprazole 2 months ago and advised to resume and take Famotidine prn for breakthrough symptoms 02/01/23 Pt complains of abd pain, bloating with diarrhea and black stools x past 3 days with weakness and dizziness Patient was advised to go [place] [facility] [place] for further evaluation with labs and repeat CT scan (for Fu of ischemic colitis) Pt had a stable Hct and stool occult blood was negative 04/05/23 Pt advised to have labs and schedule an abd US with doppler to rule out mesenteric ischemia which was negative Stool calprotectin was borderline at 92. C1q, C1 estrase inhibitor protein and C4 were normal 04/29/23 IBD serologies were suggestive of Crohn's disease 06/03/23 Capsule Endoscopy showed: Conclusion: chronic gastritis, other santiago neg small bowel study . 08/16/23 Pt advised to start Lialda 2.4 grams daily for suspected Crohn's disease (Abd pain, nausea, fecal calprotectin of 92 and IBD serologies positive for Crohn's disease) Referral was sent to urology for follow-up of kidney stones Records requested from [facility] ER visit on 08/10/23 Fu in 5 weeks Orders: Referrals Urology Referral N20.0 - Calculus of kidney Medications: New mesalamine (Lialda) 2.4 grams (2 x 1.2 gram) PO DAILY 60 tabs 2RF 30 days K52.9 - Noninfective gastroenteritis and colitis, unspecified Quality Reporting (2019) Adult ([facility] 138/[birth year]/09/[birth year]) Smoking risk assessment performed?: Yes Patient Tobacco Use Status: Current everyday Tobacco user Coding Level of Care Code Est Pt Level 4 (56365) Diagnoses Colitis K52.9 Gastroesophageal reflux disease without esophagitis K21.9 History of ischemic colitis Z87.19 History of Helicobacter pylori infection Z86.19 Kidney stones N20.0 Time Spent (min) 21
[2023-08-16 07:29] VITALS: BP 138/76; PULSE 111
== END 2023-08-16 08:09 | disposition home or self-care (01) ==
PROVIDERS: Visit Provider Internal Medicine Gastroenterology
DX: K52.9 Noninfective gastroenteritis and colitis, unspecified (principal); K21.9 Gastro-esophageal reflux disease without esophagitis; Z87.19 Personal history of other diseases of the digestive system; Z86.19 Personal history of other infectious and parasitic diseases; N20.0 Calculus of kidney
CPT/HCPCS: 99214

== ENCOUNTER → 2023-08-16 07:16 | Outpatient (BNVA) | payer MEDICARE, MEDICAID, SELFPAY ==
[2023-07-16 10:06] VITALS: BP 96/60; BP 96/66
[2023-08-12 14:54] VITALS: BP 96/66; BMI 22.5
== END ==
PROVIDERS: Visit Provider Internal Medicine Gastroenterology
DX: K21.9 Gastro-esophageal reflux disease without esophagitis (principal); K52.9 Noninfective gastroenteritis and colitis, unspecified; N20.0 Calculus of kidney; Z87.19 Personal history of other diseases of the digestive system; Z86.19 Personal history of other infectious and parasitic diseases
CPT/HCPCS: 99212

== ENCOUNTER 2023-08-20 14:04 | Outpatient (AMB) | payer MEDICARE, MEDICAID, SELFPAY ==
[2023-07-16 10:06] VITALS: BP 96/60; BP 96/66
[2023-08-12 14:54] VITALS: BP 96/66; BMI 22.5
--- NOTE | 2023-08-20 14:08 | MHC.OFFVIS ---
Intake Vital Signs 08/20/23 14:27 Height 4 ft 10 in Weight 107 lb 6 oz BMI 22.4 BP 140/81 H Blood Pressure Location Lt brachial Position Sitting Pulse 91 Intake Visit Reasons: Breast exam, 1 year follow up Intake Note: Patient is seen in office for yearly breast exam. 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 Accompanied by: Self / Same As Patient Allergies dog dander [DOGS] Allergy (Intermediate, Verified 08/20/23 14:26) Respiratory distress shellfish derived Allergy (Intermediate, Verified 08/20/23 14:26) Hives methylprednisolone Allergy (Verified 08/20/23 14:26) Rash etanercept [From Enbrel] Adverse Reaction (Intermediate, Verified 08/20/23 14:26) Facial Swelling ibuprofen [Ibuprofen] Adverse Reaction (Intermediate, Verified 08/20/23 14:26) STOMACH UPSET, abdominal pain, nausea and vomiting metformin Adverse Reaction (Intermediate, Verified 08/20/23 14:26) Diarrhea metronidazole [From FLAGYL] Adverse Reaction (Intermediate, Verified 08/20/23 14:26) Diarrhea prednisone Adverse Reaction (Intermediate, Verified 08/20/23 14:26) hallucinations, higher than 20 Medication List - Last Reconciled 08/20/23 by Hayden Rodriguez MD amoxicillin-pot clavulanate 875-125 mg 1 tab PO BID aspirin 81 mg PO DAILY 90 days blood sugar diagnostic (FreeStyle Lite Strips) Use 1 test strip three times a day budesonide 0.25 mg inhalation BID 30 days qpretoonag-rlyoekzborvyh-jkjt 50-325-40 mg 1 tab PO Q6H PRN carisoprodol (Soma) 250 mg PO TID PRN codeine-guaifenesin 10-100 mg/5 mL 10 mL PO Q4-6H PRN cyclobenzaprine mg PO dulaglutide (Trulicity) 1.5 mg (0.5 mL) subcut WE@0900 90 days famotidine 20 mg PO BEDTIME 90 days insulin degludec (Tresiba FlexTouch U-100 insulin) 20 units (0.2 mL) subcut BEDTIME 90 days ipratropium bromide 2.5 mL inhalation Q6H PRN ipratropium-albuterol 0.5 mg-3 mg(2.5 mg base)/3 mL 3 mL inhalation Q6H lancets (FreeStyle Lancets) Use 1 lancet once a day letrozole 2.5 mg PO DAILY levalbuterol tartrate 45 mcg/actuation 2 puffs inhalation Q4-6H PRN 30 days lubiprostone (Amitiza) 8 mcg PO BID 90 days mesalamine (Lialda) 2.4 grams (2 x 1.2 gram) PO DAILY 30 days morphine mg PO nitroglycerin 0.4 mg sublingual Q5M PRN Novolog FlexPen U-100 Insulin (insulin aspart U-100) 2 - 10 units See Protocol subcut TIDAC 30 days NS ondansetron 4 mg PO Q6H PRN ondansetron 8 mg PO Q8H PRN 30 days pantoprazole 40 mg PO BID 90 days pen needle, diabetic (Comfort EZ Pen [place]) Use 1 pen needle 6 times a day prednisone 5 mg PO DAILY 30 days pregabalin (Lyrica) 200 mg PO BID tramadol 50 mg PO Q6H PRN trazodone 100 mg PO BEDTIME 90 days walker with seat HPI HPI Comments History of Present Illness Details 63-year-old female patient, former patient of Dr. Urbano presenting for a left breast cancer follow-up examination. She was diagnosed with infiltrating ductal carcinoma, ER/TX positive, HER2 Kamille negative in 2018. She underwent a left breast lumpectomy with needle localization and sentinel node biopsy left axilla on 11/26/2018. Pathology revealed a 0.9 cm grade 2 infiltrating ductal carcinoma, ER/TX positive, HER2 Kamille negative. One axillary sentinel node was excised in benign ([id number]). She completed radiation therapy and is currently on letrozole per Dr. Gaitan. She reports bilateral breast pain especially in the right side but denies any palpable lump on either side. She has a previous history of lymphedema which was treated with massage therapy and lymphedema sleeve. She feels that this is much improved. Her last mammogram dated 09/26/2022 revealed no mammographic evidence of malignancy (BI-RADS 2). Ultrasound of the left breast performed in December 2022 revealed scar tissue from prior surgery but no suspicious changes. Follow-up mammogram is scheduled for 10/02/2023. She was diagnosed with DC and stroke symptoms in 2021 and subsequently required stenting at [facility]. She is awaiting a stress test next week. [facility] Medical History Colitis Cough Anxiety CAD (coronary artery disease) HLD (hyperlipidemia) HTN (hypertension) T2DM (type 2 diabetes mellitus) COPD exacerbation Hyperkalemia Atherosclerotic cardiovascular disease Hospital discharge follow-up GERD (gastroesophageal reflux disease) CVA (cerebral vascular accident) Breast pain, right Rash Bloody diarrhea PAD (peripheral artery disease) Hyperlipidemia LDL goal <100 COPD (chronic obstructive pulmonary disease) Infiltrating ductal carcinoma of left breast, stage 2 Insomnia Dyslipidemia Bipolar 1 disorder, depressed Cough Restrictive airway disease Hypothyroid IDDM (insulin dependent diabetes mellitus) Vitamin D deficiency Osteoporosis Hyperparathyroidism Thyroid nodule Depression Fibromyalgia Seropositive rheumatoid arthritis Reactive airways dysfunction syndrome Allergic rhinitis Irritable bowel Anxiety Bronchial asthma Diabetes type 2, uncontrolled Hypertension Surgical History Hx of sigmoidoscopy History of bronchoscopy Hx of endoscopy H/O cardiac catheterization History of lumpectomy of left breast History of pubovaginal sling History of esophagogastroduodenoscopy (EGD) History of tubal ligation History of colonoscopy History of bunionectomy of both great toes H/O: hysterectomy Family History Mother Diabetes HTN (hypertension) Uterus cancer Malignant tumor of head Breast cancer Father Diabetes HTN (hypertension) CVD (cardiovascular disease) Heart problem Maternal Aunt Breast cancer Brother Myocardial infarction S/P CABG x 4 Family/Other FH: mental illness Family/Other Lung cancer Other Mental health disorder Social History Household Members: Family Household Members Other:: sister Housing: House Are you a primary veterinarian laboratory animal care to a significant other at home: No Do you presently have visiting nurse or other home services: Yes (sister is food and beverage attendant) Alcohol intake: never Patient Tobacco Use Status: Current everyday Tobacco user Tobacco use type: Cigarette Cigarette Packs Per Day: 1 Cigarettes Per Day: 2 Years Smoked: 12 e-Cigarette/Vaping Use: Never Used Second Hand Smoke Exposure: No Advance Directives Date on File: 12/22/21 service: No Current occupational status: disabled Current occupation: rt handed Cognitive needs: No Hearing needs: No Vision needs: Yes Review of Systems Const All systems reviewed & are unremarkable except as noted in HPI and below Denies chills, Denies fever(s) and Denies night sweats Card Denies chest pain and Denies dyspnea Resp Denies chest congestion, Denies cough and Denies dyspnea Reports nipple discharge Skin/Breast Reports breast swelling, Denies breast skin changes, Reports breast pain, Denies breast mass, Reports change in breast shape and Reports nipple discharge Adarsh/Lymph Denies lymphadenopathy Physical Exam Vital Signs: Last Vital Signs Pulse 91 08/20/23 14:27 BP 140/81 H 08/20/23 14:27 BMI result Body Mass Index 22.4 Const General: healthy appearing, well developed and alert Nutritional Appearance: well nourished Orientation/consciousness: patient oriented x3 Limitations: no limitations Neck Neck: Yes no lymphadenopathy Chest Other: Left breast: No skin change, no nipple retraction, no nipple discharge, no palpable mass, no enlarged lymph nodes, breast tenderness Right breast: No skin change, no nipple retraction, no nipple discharge, no palpable mass, no enlarged lymph nodes, breast tenderness Chest/axillae images: 1. Area of maximal tenderness; no palpable changes in this location and no skin changes appreciated. Skin General skin exam: no rashes or lesions noted Neuro General: patient oriented x3 Extrem General: Yes no clubbing, cyanosis or edema Assessment & Plan Assessment & Plan (1) Infiltrating ductal carcinoma of left breast, stage 2: Code(s): C50.912 - Malignant neoplasm of unspecified site of left female breast Plan 63-year-old female patient presenting with a previous history of left breast lumpectomy with needle localization, sentinel node biopsy on 11/26/2018 for a 0.9 cm grade 2 infiltrating ductal carcinoma with 1 axillary lymph node negative for malignancy. She continues to complain of bilateral breast pain but denies any new breast symptoms. Her most recent mammogram of 09/26/2022 revealed no mammographic evidence of malignancy (BI-RADS 2). Annual screening mammography is recommended in 1 year (scheduled for 10/02/2023). Examination today reveals no suspicious findings in either breast other than breast tenderness. She should follow up in 6 months routine examination. Quality Reporting (2019) Adult ([facility] 138/[birth year]) Smoking risk assessment performed?: Yes Patient Tobacco Use Status: Current everyday Tobacco user Coding Level of Care Code Est Pt Level 3 (01379) Diagnoses Infiltrating ductal carcinoma of left breast, stage 2 C50.912
[2023-08-20 14:27] VITALS: BP 140/81; PULSE 91; BMI 22.4
== END 2023-08-20 14:40 | disposition home or self-care (01) ==
PROVIDERS: Visit Provider Surgery
DX: C50.912 Malignant neoplasm of unspecified site of left female breast (principal)
CPT/HCPCS: 99213

== ENCOUNTER → 2023-08-20 14:04 | Outpatient (BNVA) | payer MEDICARE, MEDICAID, SELFPAY ==
[2023-07-16 10:06] VITALS: BP 96/60; BP 96/66
[2023-08-12 14:54] VITALS: BP 96/66; BMI 22.5
== END ==
PROVIDERS: Visit Provider Surgery
DX: C50.912 Malignant neoplasm of unspecified site of left female breast (principal); Z79.811 Long term (current) use of aromatase inhibitors; Z17.0 Estrogen receptor positive status [ER+]
CPT/HCPCS: 99212

== ENCOUNTER 2023-08-28 21:41 | Emergency (ER) | payer MEDICARE, MEDICAID, SELFPAY ==
[2023-07-16 10:06] VITALS: BP 96/60; BP 96/66
[2023-08-12 14:54] VITALS: BP 96/66; BMI 22.5
--- NOTE | 2023-08-28 | ECG_ITS ---
Test Reason : CHEST PAIN Blood Pressure : / mmHG Vent. Rate : 102 BPM Atrial Rate : 102 BPM P-R Int : 130 ms QRS Dur : 084 ms QT Int : 320 ms P-R-T Axes : 081 080 064 degrees QTc Int : 417 ms Sinus tachycardia Otherwise normal ECG When compared with ECG of 04-JUL-2023 15:37, No significant change was found Referred By: Generic ED Physician Electronically Signed By:DIPTI RUIZ MD
--- NOTE | ~2023-08-28 | XR_ITS ---
EXAMINATION: XR CHEST CLINICAL INFORMATION: Chest pain COMPARISON: Chest x-ray July 04, 2023 TECHNIQUE: 2 views of the chest were obtained. FINDINGS: No significant abnormality is noted involving the heart, lungs, mediastinum, bony thorax or soft tissues. XR/XR chest 2V IMPRESSION: Unremarkable examination.
[2023-08-28 21:47] VITALS: BP 145/92; PULSE 107; RESP 18; TEMP 37.2; O2SAT 96; BMI 22.4
[2023-08-28 21:58] LABS: MANUAL DIFF FLAG NO
[2023-08-28 22:05] LABS: Basophils Percent Auto 0.3 % (0-2); Eosinophils Absolute Auto 0.1 X10*3/uL (0.0-0.4); Eosinophils Percent Auto 0.4 % (0-4); Hematocrit 40.2 % (37.0-47.0); Hemoglobin 12.8 g/dl (12.0-16.0); Imm Gran Abs Auto 0.05 X10*3/uL (0.00-0.03); Imm Gran Pct Auto 0.4 % (0.0-0.4); Lymphocytes Absolute Auto 3.3 X10*3/uL (1.2-4.9); Lymphocytes Percent Auto 24.4 % (20-40); Mean Corpuscular HGB Conc 31.8 g/dl (31.0-35.0); Mean Corpuscular Volume 84.8 fL (80.0-98.0); Mean Platelet Volume 10.1 fL (9.4-12.3); Monocytes Absolute Auto 0.8 X10*3/uL (0.1-1.2); Monocytes Percent Auto 6.1 % (2-11); Neutrophils Absolute Auto 9.3 x10*3/uL (2.0-8.3); Neutrophils Percent Auto 68.4 % (45-73); Platelet Count 345 X10*3/uL (160-400); Red Blood Count 4.74 X10*6/uL (4.20-5.50); Red Cell Distribution Width 14.2 % (11.0-16.0); White Blood Count 13.5 X10*3/uL (4.8-10.8)
[2023-08-28 22:15] LABS: Alanine Aminotransferase 10 U/L (0-31); Albumin Level 3.9 g/dL (3.5-5.0); Alkaline Phosphatase 58 U/L (39-117); Anion Gap 15 (12-20); Aspartate Amino Transferase 12 U/L (5-31); Bilirubin Direct 0.1 mg/dL (0.0-0.5); Bilirubin Total 0.3 mg/dL (0.0-1.0); Blood Urea Nitrogen 11 mg/dL (9-16); Calcium 9.3 mg/dL (8.4-10.2); Carbon Dioxide 25 mmol/L (22-29); Chloride 104 mmol/L (96-108); Creatinine Clr Calc Pharmacy 43.8; Estimated Glomerular Filt Rate > 60; Glucose Random 104 mg/dL (60-115); Potassium 4.2 mmol/L (3.3-5.1); Sodium 140 mmol/L (135-145)
[2023-08-28 22:24] LABS: Troponin-I High Sensitivity < 2.7 ng/L (<3.5-17.0)
--- NOTE | 2023-08-28 23:56 | ED_ITS ---
HPI - Chest Pain General Chief Complaint: Chest Pain Stated Complaint: Chest pain Time Seen by Provider: 08/28/23 23:45 Source: patient Mode of arrival: ambulatory Limitations: no limitations History of Present Illness HPI narrative: 63-year-old female who has known history of coronary disease with previous PCI to left circumflex artery in December 2021, hypertension, hyperlipidemia, type 2 diabetes, COPD and fibromyalgia. Complaining of left scapular pain since 17:00 radiating all over to the left chest and right flank pain for last 2 weeks patient was seen at [facility] about 2 weeks ago was told that she has 3 mm mid ureteric stone on the right side was given Percocet pain is still there no nausea no vomiting no shortness of breath no cough no hematuria patient had similar chest pain and scapular pain in the past with workup negative Related Data Home Medications Medication Instructions Recorded Confirmed nitroglycerin 0.4 mg sublingual 0.4 mg sublingual Q5M PRN Chest 01/03/22 08/20/23 tablet Pain ezqzxxqygg-gjzhgcxrnkqfm-jzrqhbvz 1 tab PO Q6H PRN pain 06/17/23 08/20/23 50 mg-325 mg-40 mg tablet codeine 10 mg-guaifenesin 100 mg/5 10 ml PO Q4-6H PRN cough 06/17/23 08/20/23 mL oral liquid cyclobenzaprine 10 mg tablet mg PO 06/17/23 08/20/23 morphine 15 mg immediate release mg PO 08/09/23 08/20/23 tablet albuterol sulfate 90 mcg/actuation inhalation 08/23/23 aerosol inhaler Previous Rx's Medication Instructions Recorded lancets 28 gauge (FreeStyle #100 ea 06/07/22 Lancets) pen needle, diabetic 31 gauge x #200 ea 06/07/2204/02 (Comfort EZ Pen Atlantic) Novolog FlexPen U-100 Insulin 100 2 - 10 unit subcut TIDAC 30 days 08/28/22 unit/mL (3 mL) subcutaneous #15 mL (insulin aspart U-100) budesonide 0.5 mg/2 mL suspension 0.25 mg inhalation BID ASTHMA/COPD 01/04/23 for nebulization 30 days #60 mL lubiprostone 8 mcg capsule 8 mcg PO BID 90 days #180 caps 01/10/23 (Amitiza) fadumo #1 ea 02/08/23 insulin degludec 100 unit/mL (3 20 unit (0.2 mL) subcut BEDTIME 90 02/11/23 mL) subcutaneous pen (Tresiba days #18 mL FlexTouch U-100 insulin) letrozole 2.5 mg tablet 2.5 mg PO DAILY #90 tabs 02/12/23 dulaglutide 1.5 mg/0.5 mL 1.5 mg (0.5 mL) subcut WE@0900 90 04/22/23 subcutaneous pen injector days #6.5 mL (Trulicity) tramadol 50 mg tablet 50 mg PO Q6H PRN pain #20 tabs 04/24/23 ipratropium 0.5 mg-albuterol 3 mg 3 ml inhalation Q6H #180 mL 05/17/23 (2.5 mg base)/3 mL nebulization soln carisoprodol 250 mg tablet (Soma) 250 mg PO TID PRN muscle pain #20 05/23/23 tabs blood sugar diagnostic (FreeStyle #100 ea 05/27/23 Lite Strips) trazodone 100 mg tablet 100 mg PO BEDTIME 90 days #90 tabs 06/27/23 aspirin 81 mg tablet,delayed 81 mg PO DAILY 90 days #90 tabs 06/30/23 release ipratropium bromide 0.02 % 2.5 ml inhalation Q6H PRN 07/03/23 solution for inhalation shortness of breath or wheezing #150 mL prednisone 5 mg tablet 5 mg PO DAILY for asthma 30 days 07/03/23 #30 tabs ondansetron 4 mg disintegrating 4 mg PO Q6H PRN nausea and 07/04/23 tablet vomiting #14 tabs famotidine 20 mg tablet 20 mg PO BEDTIME 90 days #90 tabs 08/09/23 pantoprazole 40 mg tablet,delayed 40 mg PO BID 90 days #180 tabs 08/09/23 release pregabalin 200 mg capsule (Lyrica) 200 mg PO BID #60 caps 08/14/23 mesalamine 1.2 gram tablet,delayed 2.4 g (2 x 1.2 gram) PO DAILY 30 08/16/23 release (Lialda) days #60 tabs levalbuterol tartrate 45 2 puff inhalation Q4-6H PRN 08/20/23 mcg/actuation aerosol inhaler shortness of breath 30 days #15 grams morphine 15 mg immediate release 15 mg PO Q8H PRN pain #15 tabs 08/29/23 tablet Allergies Allergy/AdvReac Type Severity Reaction Status Date / Time dog dander [DOGS] Allergy Intermediate Respiratory Verified 08/28/23 21:47 distress shellfish derived Allergy Intermediate Hives Verified 08/28/23 21:47 methylprednisolone Allergy Rash Verified 08/28/23 21:47 etanercept [From Enbrel] AdvReac Intermediate Facial Verified 08/28/23 21:47 Swelling ibuprofen [Ibuprofen] AdvReac Intermediate STOMACH Verified 08/28/23 21:47 UPSET, abdominal pain, nausea and vomiting metformin AdvReac Intermediate Diarrhea Verified 08/28/23 21:47 metronidazole [From FLAGYL] AdvReac Intermediate Diarrhea Verified 08/28/23 21:47 prednisone AdvReac Intermediate hallucinations, Verified 08/28/23 21:47 higher than 20 Review of Systems 2 Review of Systems: Yes all other systems are reviewed and are negative PMFSH Past Medical History Medical History Colitis Cough Anxiety CAD (coronary artery disease) HLD (hyperlipidemia) HTN (hypertension) T2DM (type 2 diabetes mellitus) COPD exacerbation Hyperkalemia Atherosclerotic cardiovascular disease Hospital discharge follow-up GERD (gastroesophageal reflux disease) CVA (cerebral vascular accident) Breast pain, right Rash Bloody diarrhea PAD (peripheral artery disease) Hyperlipidemia LDL goal <100 COPD (chronic obstructive pulmonary disease) Infiltrating ductal carcinoma of left breast, stage 2 Insomnia Dyslipidemia Bipolar 1 disorder, depressed Cough Restrictive airway disease Hypothyroid IDDM (insulin dependent diabetes mellitus) Vitamin D deficiency Osteoporosis Hyperparathyroidism Thyroid nodule Depression Fibromyalgia Seropositive rheumatoid arthritis Reactive airways dysfunction syndrome Allergic rhinitis Irritable bowel Anxiety Bronchial asthma Diabetes type 2, uncontrolled Hypertension Surgical History Hx of sigmoidoscopy History of bronchoscopy Hx of endoscopy H/O cardiac catheterization History of lumpectomy of left breast History of pubovaginal sling History of esophagogastroduodenoscopy (EGD) History of tubal ligation History of colonoscopy History of bunionectomy of both great toes H/O: hysterectomy Family History Family History Mother Diabetes HTN (hypertension) Uterus cancer Malignant tumor of head Breast cancer Father Diabetes HTN (hypertension) CVD (cardiovascular disease) Heart problem Maternal Aunt Breast cancer Brother Myocardial infarction S/P CABG x 4 Family/Other FH: mental illness Family/Other Lung cancer Other Mental health disorder Social History Social History Household Members: Family Household Members Other:: sister Housing: House Are you a primary laboratory animal caretaker to a significant other at home: No Do you presently have visiting nurse or other home services: Yes (sister is coal hauler) Alcohol intake: never Patient Tobacco Use Status: Current everyday Tobacco user Tobacco use type: Cigarette Cigarette Packs Per Day: 1 Cigarettes Per Day: 2 Years Smoked: 12 e-Cigarette/Vaping Use: Never Used Second Hand Smoke Exposure: No Advance Directives: Yes Advance Directives on File: Yes Advance Directives Date on File: 12/22/21 service: No Current occupational status: disabled Current occupation: rt handed Cognitive needs: No Hearing needs: No Vision needs: Yes Physical Exam 2 Vital Signs: Vital Signs: Last Vital Signs Temp 98.5 F 08/29/23 01:15 Pulse 103 H 08/29/23 01:15 Resp 25 H 08/29/23 01:15 BP 108/52 L 08/29/23 01:15 Pulse Ox 95 08/29/23 01:15 O2 Del Method Room Air 08/29/23 01:15 BMI result Body Mass Index 22.4 Appearance: Alert. Oriented X3. No acute distress. Eyes: PERRLA, No Nystagmus ENT: Pharynx normal. Oral Mucosa moist Neck: Normal inspection. Neck supple. CVS: Normal heart rate and rhythm. Pulses normal. No murmur/rubs/gallop Respiratory: No respiratory distress. Equal air entry bilateral, no wheezing/rales/rhonchi Abdomen: Soft and nontender. Bowel sounds are present, no mass palpable, R CVA tenderness ++ Skin: Skin warm and dry. Normal skin color. Normal skin turgor. Extremities: No lower extremity edema. No calf tenderness Neuro: Oriented X 3. No motor deficit. Medications Administered Discontinued Medications Generic Name Dose Route Start Last Admin Trade Name Freq PRN Reason Stop Dose Admin Sodium Chloride 1,000 mls @ 999 mls/hr 08/29/23 00:30 08/29/23 01:10 Ns IV 08/29/23 01:30 999 mls/hr .Q1H1M ONE Administration Ketorolac Tromethamine 30 mg 08/29/23 00:30 08/29/23 01:09 Ketorolac Tromethamine 30 Mg/Ml Vial IVPUSH 08/29/23 00:31 30 mg ONCE ONE Administration Morphine Sulfate 4 mg 08/29/23 01:59 08/29/23 02:05 Morphine Sulfate 4 Mg/Ml Cartridge IVPUSH 08/29/23 02:00 4 mg ONCE ONE Administration Protocol Ondansetron HCl 4 mg 08/29/23 01:59 08/29/23 02:05 Ondansetron Hcl 4 Mg/2 Ml Vial IVPUSH 08/29/23 02:00 4 mg ONCE ONE Administration Medical Decision Making Medical Decision Making [facility] Narrative: Pain with atypical chest pain with likely musculoskeletal scapular pain which she had that in the past is negative a sensitive troponin negative EKG without ischemic changes urine negative for significant hematuria but I have a kidney stone in the past. Patient will discharge home advised to continue oxycodone for renal colic and follow with flume ride operator Differential Diagnosis Differential Diagnoses: The differential diagnosis associated with the presentation includes ACS/angina/muscle skeletal pain/renal colic/pulmonary embolus Admission/Observation Consideration of admission/observation: Escalation of care including admission/observation considered Lab Data [facility] Lab Attestation statement: I reviewed the patient's lab results. 08/28/23 21:53 08/28/23 21:53 Labs: Lab Results 08/28/23 08/29/23 08/29/23 Range/Units 21:53 00:52 01:25 WBC 13.5 H (4.8-10.8) X10*3/uL RBC 4.74 (4.20-5.50) X10*6/uL Hgb 12.8 (12.0-16.0) g/dl Hct 40.2 (37.0-47.0) % MCV 84.8 (80.0-98.0) fL MCH 27.0 (27.0-33.0) pg MCHC 31.8 (31.0-35.0) g/dl RDW 14.2 (11.0-16.0) % Plt Count 345 (160-400) X10*3/uL MPV 10.1 (9.4-12.3) fL Immature Gran % (Auto) 0.4 (0.0-0.4) % Neut % (Auto) 68.4 (45-73) % Lymph % (Auto) 24.4 (20-40) % Gillespie % (Auto) 6.1 (2-11) % Eos % (Auto) 0.4 (0-4) % Baso % (Auto) 0.3 (0-2) % Lymph # (Auto) 3.3 (1.2-4.9) X10*3/uL Gillespie # (Auto) 0.8 (0.1-1.2) X10*3/uL Eos # (Auto) 0.1 (0.0-0.4) X10*3/uL Baso # (Auto) 0.0 (0.0-0.2) X10*3/uL Abs Immat Gran (auto) 0.05 H (0.00-0.03) X10*3/uL Absolute Neuts (auto) 9.3 H (2.0-8.3) x10*3/uL Absolute Nucleated RBC 0.000 (0.0-0.012) X10*3/uL Nucleated RBC % (auto) 0.0 (0.0-0.2) /100WBC Hold Purple Top SEE NOTE PT 13.4 H (11.1-13.3) SEC INR 1.1 (0.9-1.1) D-Dimer High Sensitivty < 150 NG/ML Sodium 140 (135-145) mmol/L Potassium 4.2 (3.3-5.1) mmol/L Chloride 104 (96-108) mmol/L Carbon Dioxide 25 (22-29) mmol/L Anion Gap 15 (12-20) BUN 11 (9-16) mg/dL Creatinine 0.87 (0.5-1.4) mg/dL Estim Creat Clear Calc 43.8 Estimated GFR > 60 Random Glucose 104 (60-115) mg/dL Calcium 9.3 (8.4-10.2) mg/dL Total Bilirubin 0.3 (0.0-1.0) mg/dL Direct Bilirubin 0.1 (0.0-0.5) mg/dL AST 12 (5-31) U/L ALT 10 (0-31) U/L Alkaline Phosphatase 58 (39-117) U/L Troponin I High Sens < 2.7 (<3.5-17.0) ng/L Total Protein 7.0 (6.5-8.0) g/dL Albumin 3.9 (3.5-5.0) g/dL Urine Color Yellow Urine Appearance Clear Urine pH 8.0 (5.0-9.0) Ur Specific [place] 1.015 (1.005-1.025) Urine Protein Negative (Neg-Trace) mg/dL Urine Glucose (UA) Negative (Negative) mg/dL Urine Ketones Negative (Negative) mg/dL Urine Blood Negative (Negative) Urine Nitrite Negative (Negative) Ur Leukocyte Esterase Trace H (Negative) Urine RBC 0-2 (0-2) /HPF Urine WBC 0-5 (0-5) /HPF Ur Squamous Epith Cells 0-2 (0-2) /HPF Urine Bacteria None Seen (None Seen) Hyaline Casts 0-2 (0-2) /LPF COVID-19 (KRISS) Negative (Negative) COVID-19 Clin Com See Note Independent Interpretation I performed an independent interpretation of an: EKG Interpretation: Sinus rhythm with heart rate 102 beats per minute normal intervals normal axis no acute ST-T changes no acute ischemia Discharge Plan Discharge Clinical Impression: Chest pain, Renal colic on right side Patient Disposition: Home, Self-Care Instructions: Chest Pain (ED), Renal Colic (ED) Additional Instructions: Drink plenty of fluids Taking medication as prescribed Pain medication as prescribed Follow with flume ride operator and urologist for further evaluation and management Report to the ER if pain gets worse Prescriptions: New morphine 15 mg tablet 15 mg PO Q8H PRN (Reason: pain) Qty: 15 0RF Rx Instructions: Partial Fill upon patient request. No Action (DME) pen needle, diabetic [Comfort EZ Pen Atlantic] 31 gauge x 5/16 needle See Rx Instructions .ROUTE .MEDSUPPLY Qty: 200 11RF Rx Instructions: Use 1 pen needle 6 times a day (DME) lancets [FreeStyle Lancets] 28 gauge misc See Rx Instructions .Route Qty: 100 3RF Rx Instructions: Use 1 lancet once a day insulin aspart U-100 [Novolog FlexPen U-100 Insulin] 100 unit/mL (3 mL) insulin pen 2 - 10 unit subcut TIDAC 30 Days Qty: 15 11RF Protocol: Insulin Correction Scale Less than or equal to 110 ---- Give (units): 0 111 to 150 Give (units): 0 151 to 200 Give (units): 2 201 to 250 Give (units): 4 251 to 300 Give (units): 6 301 to 350 Give (units): 8 Greater than 350 Give (units): 10 Call MD if Blood Glucose > : 350 Rx Instructions: Via sliding scale budesonide 0.5 mg/2 mL suspension for nebulization 0.25 mg inhalation BID 30 Days Qty: 60 3RF (DME) fadumo [facility] See Rx Instructions .Route Qty: 1 0RF Rx Instructions: with seat insulin degludec [Tresiba FlexTouch U-100] 100 unit/mL (3 mL) insulin pen 20 unit subcut BEDTIME 90 Days Qty: 18 1RF letrozole 2.5 mg Tablet 2.5 mg PO DAILY Qty: 90 3RF Trulicity 1.5 mg/0.5 mL pen injector 1.5 mg subcut WE@0900 90 Days Qty: 6.5 2RF ipratropium-albuterol 0.5 mg-3 mg(2.5 mg base)/3 mL solution for nebulization 3 ml inhalation Q6H Qty: 180 0RF (DME) FreeStyle Lite Strips Strip MISCELLANEOUS DAILY Qty: 100 1RF Rx Instructions: Use 1 test strip three times a day trazodone 100 mg tablet 100 mg PO BEDTIME 90 Days Qty: 90 0RF aspirin 81 mg tablet,delayed release (DR/EC) 81 mg PO DAILY 90 Days Qty: 90 1RF ipratropium bromide 0.02 % solution 2.5 ml inhalation Q6H PRN (Reason: shortness of breath or wheezing) Qty: 150 3RF prednisone 5 mg tablet 5 mg PO DAILY 30 Days Qty: 30 3RF pregabalin [Lyrica] 200 mg capsule 200 mg PO BID Qty: 60 5RF levalbuterol tartrate 45 mcg/actuation HFA aerosol inhaler 2 puff inhalation Q4-6H PRN (Reason: shortness of breath) 30 Days Qty: 15 3RF ondansetron 4 mg tablet,disintegrating 4 mg PO Q6H PRN (Reason: nausea and vomiting) Qty: 14 0RF tramadol 50 mg tablet 50 mg PO Q6H PRN (Reason: pain) Qty: 20 0RF nitroglycerin 0.4 mg tablet, sublingual 0.4 mg sublingual Q5M PRN (Reason: Chest Pain) carisoprodol [Soma] 250 mg tablet 250 mg PO TID PRN (Reason: muscle pain) Qty: 20 0RF morphine 15 mg tablet PO famotidine 20 mg tablet 20 mg PO BEDTIME 90 Days Qty: 90 1RF pantoprazole 40 mg tablet,delayed release (DR/EC) 40 mg PO BID 90 Days Qty: 180 0RF lubiprostone [Amitiza] 8 mcg capsule 8 mcg PO BID 90 Days Qty: 180 1RF albuterol sulfate 90 mcg/actuation HFA aerosol inhaler inhalation codeine-guaifenesin 10-100 mg/5 mL liquid 10 ml PO Q4-6H PRN (Reason: cough) cyclobenzaprine 10 mg tablet PO qolcpovqqa-znjcfblzyftvy-wqnw 50-325-40 mg tablet 1 tab PO Q6H PRN (Reason: pain) mesalamine [Lialda] 1.2 gram tablet,delayed release (DR/EC) 2.4 g PO DAILY 30 Days Qty: 60 2RF
[2023-08-29] MEDS: Ketorolac Tromethamine 30 MG/ML VIAL IVPUSH (01:09)
[2023-08-29] MEDS: 0.9 % Sodium Chloride 1,000 ML 999 ML IV (01:10)
[2023-08-29 01:13] LABS: INTERNATIONAL NORM RATIO 1.1 (0.9-1.1); Prothrombin Time 13.4 SEC (11.1-13.3)
[2023-08-29 01:15] VITALS: BP 108/52; PULSE 103; RESP 25; TEMP 36.9; O2SAT 95
[2023-08-29 01:28] LABS: COVID-19 Test Negative (Negative); D Dimer High Sensitivity < 150 NG/ML; IDNOW Serial# BCCEAD1C
[2023-08-29 01:34] LABS: Appearance Urine Clear; Color Urine Yellow; Glucose Urine UA Negative (Negative); Leukocyte Esterase Urine Trace (Negative); Nitrite Urine Negative (Negative); Specific Gravity - Urine 1.015 (1.005-1.025); UMIC TRIGGER UACC YES; Urine Blood Negative (Negative); Urine Ketones Negative (Negative); Urine Protein Negative (Neg-Trace)
[2023-08-29 01:39] LABS: Bacteria Urine None Seen (None Seen); Hyaline Casts Urine 0-2 /LPF (0-2); RBC Urine 0-2 /HPF (0-2); Squamous Epithelial Cell Urine 0-2 /HPF (0-2); WBC Urine 0-5 /HPF (0-5)
[2023-08-29] MEDS: Morphine Sulfate 4 MG/ML CARTRIDGE IVPUSH (02:05)
[2023-08-29] MEDS: ondansetron HCL 4 MG/2 ML VIAL IVPUSH (02:05)
== END 2023-08-29 02:36 | disposition home or self-care (01) ==
PROVIDERS: Student in an Organized Health Care Education/Training Program; Emergency Provider Internal Medicine; PCP Internal Medicine
DX: R07.9 Chest pain, unspecified (principal); N23 Unspecified renal colic; Z11.52 Encounter for screening for COVID-19; E11.9 Type 2 diabetes mellitus without complications; I10 Essential (primary) hypertension; E78.5 Hyperlipidemia, unspecified; F17.210 Nicotine dependence, cigarettes, uncomplicated; Z79.4 Long term (current) use of insulin; Z79.82 Long term (current) use of aspirin; Z79.899 Other long term (current) drug therapy
CPT/HCPCS: 36415; 71046; 80048; 80076; 81001; 84484; 85025; 85379; 85610; 87635; 93005; 96374; 96375; 99284; 99285; J1885; J2270; J2405

== ENCOUNTER 2023-08-30 11:02 | Outpatient (AMB) | payer MEDICARE, MEDICAID, SELFPAY ==
[2023-07-16 10:06] VITALS: BP 96/60; BP 96/66
[2023-08-12 14:54] VITALS: BP 96/66; BMI 22.5
--- NOTE | 2023-08-30 11:06 | A.OFFPC_ITS ---
Vital Signs 08/30/23 11:07 Height 4 ft 10 in Weight 107 lb 4 oz BMI 22.4 BP 110/62 Blood Pressure Location Lt brachial Position Sitting Pulse 102 H Pulse Source Pulse Oximeter Pulse Oximetry (%) 72 L Oxygen Delivery Method Room Air Intake Visit Reasons: [facility] 08/08 kidney stones pain Intake Note: Patient is here to follow-up after a visit the emergency department at [facility] on 08/08/23, [facility] on 08/28/23. Swatch Paster Required: No Signal Maintainer Helper: Not Required per policy Accompanied by: Self / Same As Patient Allergies dog dander [DOGS] Allergy (Intermediate, Verified 08/30/23 11:07) Respiratory distress shellfish derived Allergy (Intermediate, Verified 08/30/23 11:07) Hives methylprednisolone Allergy (Verified 08/30/23 11:07) Rash etanercept [From Enbrel] Adverse Reaction (Intermediate, Verified 08/30/23 11:07) Facial Swelling ibuprofen [Ibuprofen] Adverse Reaction (Intermediate, Verified 08/30/23 11:07) STOMACH UPSET, abdominal pain, nausea and vomiting metformin Adverse Reaction (Intermediate, Verified 08/30/23 11:07) Diarrhea metronidazole [From FLAGYL] Adverse Reaction (Intermediate, Verified 08/30/23 11:07) Diarrhea prednisone Adverse Reaction (Intermediate, Verified 08/30/23 11:07) hallucinations, higher than 20 Tobacco use date assessed: 08/30/23 Dental Screening Dental Screen Date: 08/30/23 Did you have a dental visit in the last 12 months?: Yes Did you have a dental problem in the last 6 months where you did not have access to dental care?: No Was dental information given to patient?: Patient has dentist HPI HPI Comments History of Present Illness Details 63-year-old female past medical history significant for type 2 diabetes mellitus, reactive airway dysfunction syndrome, rheumatoid arthritis, fibromyalgia, hyperparathyroidism, dyslipidemia, bipolar, insomnia, COPD, hypertension, GERD lumbar degenerative disc disease kidney stones. Patient presents today for emergency room follow-up from [facility] on 08/28/23 for kidney stone pain. Patient reports [facility] 2 weeks prior she was told she had a 3 mm kidney stone. Patient was treated with pain medication and advised to increase fluid intake and follow up as outpatient with Urology. Patient states has upcoming appointment with Urology scheduled for 10/08/23. Patient reports was seen by Dr. Roman and her blood work suggestive for Crohn's disease patient was prescribed lialda for this. Patient presents continues to report left-sided flank pain with positive CD a tenderness to left side. Denies any fever, chills, nausea vomiting. Patient reports was prescribed morphine in the emergency room she uses for pain. [facility] Medical History Colitis Cough Anxiety CAD (coronary artery disease) HLD (hyperlipidemia) HTN (hypertension) T2DM (type 2 diabetes mellitus) COPD exacerbation Hyperkalemia Atherosclerotic cardiovascular disease Hospital discharge follow-up GERD (gastroesophageal reflux disease) CVA (cerebral vascular accident) Breast pain, right Rash Bloody diarrhea PAD (peripheral artery disease) Hyperlipidemia LDL goal <100 COPD (chronic obstructive pulmonary disease) Infiltrating ductal carcinoma of left breast, stage 2 Insomnia Dyslipidemia Bipolar 1 disorder, depressed Cough Restrictive airway disease Hypothyroid IDDM (insulin dependent diabetes mellitus) Vitamin D deficiency Osteoporosis Hyperparathyroidism Thyroid nodule Depression Fibromyalgia Seropositive rheumatoid arthritis Reactive airways dysfunction syndrome Allergic rhinitis Irritable bowel Anxiety Bronchial asthma Diabetes type 2, uncontrolled Hypertension Surgical History Hx of sigmoidoscopy History of bronchoscopy Hx of endoscopy H/O cardiac catheterization History of lumpectomy of left breast History of pubovaginal sling History of esophagogastroduodenoscopy (EGD) History of tubal ligation History of colonoscopy History of bunionectomy of both great toes H/O: hysterectomy Family History Mother Diabetes HTN (hypertension) Uterus cancer Malignant tumor of head Breast cancer Father Diabetes HTN (hypertension) CVD (cardiovascular disease) Heart problem Maternal Aunt Breast cancer Brother Myocardial infarction S/P CABG x 4 Family/Other FH: mental illness Family/Other Lung cancer Other Mental health disorder Social History (Updated 08/30/23 @ 11:14 by KENNY Houston) Household Members: Family Household Members Other:: sister Housing: House Are you a primary career and transition teacher to a significant other at home: No Do you presently have visiting nurse or other home services: Yes (sister is medical transcriptionist) Alcohol intake: never Patient Tobacco Use Status: Current everyday Tobacco user Tobacco use type: Cigarette Cigarette Packs Per Day: 0.5 Cigarettes Per Day: 4 Years Smoked: 12 e-Cigarette/Vaping Use: Never Used Second Hand Smoke Exposure: Yes Advance Directives Date on File: 12/22/21 service: No Current occupational status: disabled Current occupation: rt handed Cognitive needs: No Hearing needs: No Vision needs: Yes Questionnaire Thrive Questionnaire Date Thrive assessed: 12/17/22 FLAVIA-7 AMB Questionnaire FLAVIA-7 Date FLAVIA - 7 assessed: 12/17/22 Source: Developed by Drs. Hernandez Norris, Gissell Solorzano, Gilmar Szymanski and colleagues, with an educational chris from [employer]. Review of Systems Const Denies chills, Denies fatigue, Denies fever(s) and Denies poor appetite Eyes Denies no additional complaints ENT Reports Normal hearing present Card Denies chest pain, Denies syncope, Denies rapid heart rate and Denies dyspnea Resp Denies cough and Denies dyspnea GI Denies change in stool character, Denies constipation, Denies diarrhea, Denies nausea and Denies vomiting Denies urinary frequency, Denies dysuria and Denies urinary urgency Neuro Reports Normal hearing present, Denies confusion and Denies syncope Psych Denies confusion Endo Denies fatigue Physical exam (Primary Care) Vital Signs: Last Vital Signs Pulse 102 H 08/30/23 11:07 BP 110/62 08/30/23 11:07 Pulse Ox 72 L 08/30/23 11:07 Oxygen Delivery Method Room Air 08/30/23 11:07 BMI result Body Mass Index 22.4 Tobacco/Smoking Status: Tobacco use Status Tobacco use date assessed 08/30/23 08/30/23 11:15 Patient Tobacco Use Status Current everyday Tobacco 08/30/23 11:15 Tobacco use type Cigarette 08/30/23 11:15 e-Cigarette/Vaping Use Never Used 08/30/23 11:15 Thrive Assessment: Date of Thrive Assessment Date Thrive assessed 12/17/22 08/30/23 11:15 Const General: No confusion Orientation/consciousness: No confusion HENMT Head: Yes normocephalic and Yes atraumatic Eyes Conjunctivae: conjunctivae normal Chest Chest palpation & inspection: normal inspection of the chest Resp Effort & Inspection: normal respiratory effort Auscultation: clear to auscultation bilaterally, no crackles, no rhonchi and no wheezes Cardio Rate: regular rate Rhythm: regular rhythm Heart sounds: S1 normal heart sound present and S2 normal heart sound present GI Inspection: Yes normal to inspection General: Yes CVA tenderness on the left Back/Spine/Pelvis Back: CVA tenderness Neuro General: No confusion Cranial nerves: Yes Normal hearing present Extrem General: No edema Assessment and Plan Assessment & Plan (1) Kidney stones: Code(s): N20.0 - Calculus of kidney Plan: Renal ultrasound ordered. Patient advised to increase water intake. Flomax prescribed to promote urethral relaxation to help in stone passing. Keep scheduled follow-up with Urology in September. Plan Keep scheduled follow-up with PCP. 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
[2023-08-30 11:07] VITALS: BP 110/62; PULSE 102; O2SAT 72; BMI 22.4
== END 2023-08-30 11:33 | disposition home or self-care (01) ==
PROVIDERS: PCP Internal Medicine; Visit Provider Nurse Practitioner Family
DX: N20.0 Calculus of kidney (principal); M05.9 Rheumatoid arthritis with rheumatoid factor, unspecified
CPT/HCPCS: 99213

== ENCOUNTER → 2023-09-02 08:12 | Outpatient (REF) | payer MEDICARE, MEDICAID, SELFPAY ==
[2023-07-16 10:06] VITALS: BP 96/60; BP 96/66; BMI 22.5
--- NOTE | ~2023-09-02 | NM_ITS ---
EXERCISE MYOCARDIAL PERFUSION STUDY INDICATION: Coronary disease, assess for ischemia history of prior circumflex PCI. TECHNIQUE: The patient was brought in for an exercise perfusion study on 09/02/2023. Patient performed exercise as per Gilbert protocol and was injected 25 mCi of sestamibi once target heart rate was achieved. Images were obtained using the SPECT gamma camera interlaced with the gating device. Images were obtained in supine position. Resting perfusion study was performed on 09/03/2023. Patient was administered 25 mCi of sestamibi intravenously at rest. Images were then obtained in supine position. Images were processed with the software and compared side to side in short axis, horizontal long axis and vertical long axis views. Total DLP 76mGy-cm. FINDINGS: Raw images were reviewed. The stress perfusion study showed no significant perfusion abnormality. Both uncorrected as well as CT attenuation corrected images were reviewed. The gated study shows normal LV systolic function with calculated LVEF of 68%. LV cavity is normal in size. The gated study shows normal wall thickening and contraction of segments. Resting study shows no significant perfusion defects. Gating at rest reveals normal wall motion with ejection fraction at > 70%. The findings are consistent with no clear reversible or fixed perfusion defects. NM/NM cardiolite stress test IMPRESSION: 1. Myocardial perfusion imaging study shows probably normal myocardial perfusion. No clear evidence of any ischemia or infarction. 2. Gated LVEF is 68% during stress and > 70% during rest. 3. Transient ischemic dilatation not present. EKG component of the test reported separately.
--- NOTE | 2023-09-02 08:14 | CA_ITS ---
Acquisition Time: 2023-09-02 08:28:28 Total Exercise Time: 00:05:59 Test Indications: Suspected Angina Medications: SEE H Protocol: EMI Max HR: 137 BPM 86% of Pred: 159 BPM Max BP: 120/074 mmHG Max Work Load: 7.0 METS Exercise stress test exercise 5 min 59 sec of Emi protocol achieving 86% MPHR, with moderate SOB, 7/10 mid chest tightness, without arrhythmias, with normotensive response to exercise, without EKG changes. Chest tightness and breathing resolved with rest. PT reported some mild lightheadedness when BP was 88/68. PT laid down and lighthedness resolved with laying down. Nuclear images pending. Test reviewed with Dr. No. Referred By: Joseph Salmon Overread By: Najma Costello
== END ==
LOC: HO.CARD 08:12
PROVIDERS: PCP Internal Medicine; Visit Provider Internal Medicine Cardiovascular Disease
DX: I20.89 Other forms of angina pectoris (principal)
CPT/HCPCS: 78452; 93017; A9500

== ENCOUNTER → 2023-09-02 08:14 | Outpatient (BNV) | payer MEDICARE, MEDICAID, SELFPAY ==
[2023-07-16 10:06] VITALS: BP 96/60; BP 96/66
[2023-08-12 14:54] VITALS: BP 96/66; BMI 22.5
== END ==
PROVIDERS: PCP Internal Medicine; Visit Provider Nurse Practitioner
DX: I20.8 Other forms of angina pectoris (principal)
CPT/HCPCS: 78452; 93016; 93018

== ENCOUNTER 2023-09-03 14:11 | Outpatient (AMB) | payer MEDICARE, MEDICAID, SELFPAY ==
[2023-07-16 10:06] VITALS: BP 96/60; BP 96/66
[2023-08-12 14:54] VITALS: BP 96/66; BMI 22.5
--- NOTE | 2023-09-03 14:13 | MHC.OFFVIS ---
Intake Vital Signs 09/03/23 14:16 Height 4 ft 10 in Weight 111 lb 12.39 oz BMI 23.4 BP 102/62 Blood Pressure Location Rt brachial Position Sitting Pulse 107 H Pulse Source Pulse Oximeter Temp 97.1 F Temp Source Skin Pulse Oximetry (%) 98 Oxygen Delivery Method Room Air Intake Visit Reasons: crohn's/joint pain Intake Note: Patient presents to office today c/o multiple joint pains. 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: No Accompanied by: Self / Same As Patient Allergies dog dander [DOGS] Allergy (Intermediate, Verified 09/03/23 14:15) Respiratory distress shellfish derived Allergy (Intermediate, Verified 09/03/23 14:15) Hives methylprednisolone Allergy (Verified 09/03/23 14:15) Rash etanercept [From Enbrel] Adverse Reaction (Intermediate, Verified 09/03/23 14:15) Facial Swelling ibuprofen [Ibuprofen] Adverse Reaction (Intermediate, Verified 09/03/23 14:15) STOMACH UPSET, abdominal pain, nausea and vomiting metformin Adverse Reaction (Intermediate, Verified 09/03/23 14:15) Diarrhea metronidazole [From FLAGYL] Adverse Reaction (Intermediate, Verified 09/03/23 14:15) Diarrhea prednisone Adverse Reaction (Intermediate, Verified 09/03/23 14:15) hallucinations, higher than 20 HPI HPI Comments History of Present Illness Details Ms. Swan returns for evaluation of her rheumatoid arthritis. She is complaining for all over body pain today and has a history of fibromyalgia. She was diagnosed with Crohn's and has now been on Mesalamine for two weeks. She still has significant joint pain at times, this tends to be an episodic phenomena. She describes episodes of pain at the base of her thumbs sometimes involving some swelling also up into the 2nd MCP joint and the wrist. These last a day or 2 and then subside. Tenderness to the plantar aspect of her feet, feels like burning, and achilles pain bilaterally. She also has lower back pain. She remains on Lyrica 200 mg twice a day, prednisone 5 mg daily, and occasional carisoprodol or cyclobenzaprine. She started on morhpine for Kidney stones and this has not been helpful for the joint pain. [facility] Medical History (Updated 09/04/23 @ 10:26 by ARTEMIO Olguin-NICHO) Tendonitis of ankle or foot Colitis Cough Anxiety CAD (coronary artery disease) HLD (hyperlipidemia) HTN (hypertension) T2DM (type 2 diabetes mellitus) COPD exacerbation Hyperkalemia Atherosclerotic cardiovascular disease Hospital discharge follow-up GERD (gastroesophageal reflux disease) CVA (cerebral vascular accident) Breast pain, right Rash Bloody diarrhea PAD (peripheral artery disease) Hyperlipidemia LDL goal <100 COPD (chronic obstructive pulmonary disease) Infiltrating ductal carcinoma of left breast, stage 2 Insomnia Dyslipidemia Bipolar 1 disorder, depressed Cough Restrictive airway disease Hypothyroid IDDM (insulin dependent diabetes mellitus) Vitamin D deficiency Osteoporosis Hyperparathyroidism Thyroid nodule Depression Fibromyalgia Seropositive rheumatoid arthritis Reactive airways dysfunction syndrome Allergic rhinitis Irritable bowel Anxiety Bronchial asthma Diabetes type 2, uncontrolled Hypertension Surgical History Hx of sigmoidoscopy History of bronchoscopy Hx of endoscopy H/O cardiac catheterization History of lumpectomy of left breast History of pubovaginal sling History of esophagogastroduodenoscopy (EGD) History of tubal ligation History of colonoscopy History of bunionectomy of both great toes H/O: hysterectomy Family History Mother Diabetes HTN (hypertension) Uterus cancer Malignant tumor of head Breast cancer Father Diabetes HTN (hypertension) CVD (cardiovascular disease) Heart problem Maternal Aunt Breast cancer Brother Myocardial infarction S/P CABG x 4 Family/Other FH: mental illness Family/Other Lung cancer Other Mental health disorder Social History Household Members: Family Household Members Other:: sister Housing: House Are you a primary field care manager to a significant other at home: No Do you presently have visiting nurse or other home services: Yes (sister is nursing assistant) Alcohol intake: never Patient Tobacco Use Status: Current everyday Tobacco user Tobacco use type: Cigarette Cigarette Packs Per Day: 0.5 Cigarettes Per Day: 4 Years Smoked: 12 e-Cigarette/Vaping Use: Never Used Second Hand Smoke Exposure: Yes Advance Directives Date on File: 12/22/21 service: No Current occupational status: disabled Current occupation: rt handed Cognitive needs: No Hearing needs: No Vision needs: Yes Review of Systems Const Details: Negative for appetite change, weight change since last visit, fever, chills, malaise and fatigue Card Details: Negative chest pain, edema and syncope Resp Details: Shortness of breath with activity. COPD, Smokes GI Details: Takes Famotidine and Pantoprazole. Recent Dx of Crohn's Endo Details: Negative for polyuria and polydypsia, T2DM Adarsh/Lymph Details: Negative for excessive bruising or bleeding. Physical Exam Vital Signs: Last Vital Signs Temp 97.1 F 09/03/23 14:16 Pulse 107 H 09/03/23 14:16 BP 102/62 09/03/23 14:16 Pulse Ox 98 09/03/23 14:16 Oxygen Delivery Method Room Air 09/03/23 14:16 BMI result Body Mass Index 23.4 APPEARANCE: Patient in no acute distress EYES no redness, pupils equal and reactive to light, eyelids normal Cervical Spine:.? Mild pain with extremes of motion.? Some cervical muscle tenderness. Thoracic Spine:.? No scoliosis.? No tenderness on palpation. Lumbar Spine:.? Alignment normal.? Mild lumbar pain with full flexion.? No tenderness. Chest Wall:? There is no tenderness today. No redness or swelling. Hands:? Right:? Normal range of motion with mild discomfort.? There is some slight tenderness without swelling at the 5th MCP joint.?There is tenderness at the ulnar styloid. There is some minimal bony enlargement at the thumb IP and thumb CMC joint without tenderness.? There is mild tenderness across the flexor tendons without any swelling or triggering.? No sensory loss or thenar atrophy.? Left: Bony enlargement and tenderness at the base of the thumb. Normal pain-free range of motion without tenderness, swelling, increased warmth or erythema.? Some mild flexor tendon tenderness without triggering is evident.? No thenar atrophy or sensory loss. Wrists:.? Slight pain with flexion extension at 80 degrees with some minimal tenderness.? No swelling, increased warmth or erythema. Elbows:. Normal pain-free range of motion with mild lateral epicondylar tenderness.? Over the joint space there is no swelling, increased warmth or erythema. Shoulders:.?? Full range of motion without pain. No tenderness, weakness, swelling, increased warmth or erythema. Hips:.? Full range of motion without pain. Hip bursa:.? Mild trochanteric tenderness. Knees:.?? Normal pain-free range of motion with mild patellofemoral crepitus.? There is some medial compartment tenderness without effusion, soft tissue swelling, increased warmth or erythema.? Ankles:.? Normal range of motion with slight medial and lateral tenderness but no swelling, increased warmth or erythema. Tenderness to achilles tendon Feet:.? Normal pain-free range of motion with mild 1st MTP bony enlargement.? However there is no tenderness in the instep or MTP joints.? Tenderness to right MTP joints, non on left, no swelling, increased warmth or erythema.? Tenderness to plantar (ball) of both feet. There does not appear to be any sensory loss in the feet. Tender points:.? Mild tenderness to digital palpation at the occiput, trapezius, second rib, lateral epicondyle, knees, greater trochanter and gluteal area bilaterally. Results Reviewed Results Reviewed: Laboratory Tests 08/28/23 21:53 WBC 13.5 H Abs Immat Gran (auto) 0.05 H Absolute Neuts (auto) 9.3 H Laboratory Tests 07/04/23 12:50 ESR 23 H Chloride 109 H Assessment & Plan Assessment & Plan (1) Seropositive rheumatoid arthritis: Comment: Orenica: 04/2021- 06/2022- stopped due to severe COPD requiring long standing azithromycin Plaquenil: approx. 02/2021-May 2021 self stopped Enbrel: approx. 02/2021 ordered after cleared for hep A, stopped due to allergy Sulfasalazine: approx. 02/2019- 02/2021 - restarted 09/27/2022 -04/2023 stopped due to heaedache and nausea [place]ate: approx. 11/2016-12/2018 [place] [facility] [place] with breast CA so methotrexate discontinued. Changed to sulfsalazine 500mg 2 tabs BID to prevent lung fibrosis as patient was receiving radiation therapy for her breast CA. Completed Radiation therapy February 2019. OnTamoxifen but had side effects so was started on Letrozole in May 2019. Xeljanz: approx. 03/2018-04/2018 Cimzia: aprrox.05/2017- did not take Humira: dates unknown Leflunomide: many years ago, then approx. 08/2020-02/2021 Diagnosed 25 years ago Code(s): M05.9 - Rheumatoid arthritis with rheumatoid factor, unspecified (2) Tendonitis of ankle or foot: Code(s): M77.50 - Other enthesopathy of unspecified foot and ankle (3) Smoker: Comment: Has past history of smoking 50 years. Currently smoking about 3-5 cigarettes a day. Counseled once again that she must quit completely. Advised that her frequent cough is definitely related to her ongoing smoking. Discussed with patient that smoking can make RA worse Code(s): F17.200 - Nicotine dependence, unspecified, uncomplicated (4) Fibromyalgia: Code(s): M79.7 - Fibromyalgia Plan Given the +RF and +CCP, and joint pain, it may be Rheumatoid arthritis. And while the patient does have some osteoarthritis in her hands that may occasionally flare-up, it does not present like active rheumatoid arthritis currently. Additionally, she has many tender points consistent with some underlying fibromyalgia. She has had numerous attempts at therapy in the past with 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y drugs. However, the only medication that patient stipulate to that has been helpful is Orencia. She says she felt improved on Orencia which was stopped due to her prophylactic Antibiotic. Now that she has pretty severe COPD with frequent infections, the use of those drugs is more problematic than their potential benefit. Patient was recently diagnosed with Crohn's. This too can add a layer of complexity to her joint pain and may contributing to the Achilles tenderness and the plantar tenderness as in IBD related Tendonitis. Since she was started on Mesalamine for Crohns, we will wait to see if it is effective for the crohns and in turn reduce some of the joint tenderness and also if not, will GI will need to initiate anything further. Given that GI medications do also suppresses the immune system, we have to be careful not to overlap. Discussed with patient that smoking can make RA worse. She will discuss starting Chantix with PCP. She should continue to use topical diclofenac gel on the hands when needed and acetaminophen. She will continue with the Lyrica as above. A follow-up in about 6 months is recommended. Patient knows to call earlier if needed. Quality Reporting (2019) Adult ([facility] ) Smoking risk assessment performed?: Yes Patient Tobacco Use Status: Current everyday Tobacco user Coding Level of Care Code Est Pt Level 3 (93937) Diagnoses Seropositive rheumatoid arthritis M05.9 Tendonitis of ankle or foot M77.50 Smoker F17.200 Fibromyalgia M79.7
[2023-09-03 14:16] VITALS: BP 102/62; PULSE 107; TEMP 36.2; O2SAT 98; BMI 23.4
== END 2023-09-03 14:56 | disposition home or self-care (01) ==
PROVIDERS: PCP Internal Medicine; Visit Provider Nurse Practitioner Family
DX: M05.79 Rheumatoid arthritis with rheumatoid factor of multiple sites without organ or systems involvement (principal); M77.52 Other enthesopathy of left foot and ankle; M79.7 Fibromyalgia; F17.200 Nicotine dependence, unspecified, uncomplicated
CPT/HCPCS: 99214

== ENCOUNTER → 2023-09-03 14:11 | Outpatient (BNVA) | payer MEDICARE, MEDICAID, SELFPAY ==
[2023-07-16 10:06] VITALS: BP 96/60; BP 96/66
[2023-08-12 14:54] VITALS: BP 96/66; BMI 22.5
== END ==
PROVIDERS: PCP Internal Medicine; Visit Provider Nurse Practitioner Family
DX: M05.9 Rheumatoid arthritis with rheumatoid factor, unspecified (principal); M79.7 Fibromyalgia; M77.50 Other enthesopathy of unspecified foot and ankle; K50.90 Crohn's disease, unspecified, without complications; F17.200 Nicotine dependence, unspecified, uncomplicated; Z79.899 Other long term (current) drug therapy
CPT/HCPCS: 99212

== ENCOUNTER 2023-09-11 11:36 | Outpatient (REF) | payer MEDICARE, MEDICAID, SELFPAY ==
[2023-07-16 10:06] VITALS: BP 96/60; BP 96/66
[2023-08-12 14:54] VITALS: BP 96/66; BMI 22.5
[2023-09-11 11:51] LABS: MANUAL DIFF FLAG NO
[2023-09-11 11:57] LABS: Basophils Percent Auto 0.2 % (0-2); Eosinophils Absolute Auto 0.1 X10*3/uL (0.0-0.4); Eosinophils Percent Auto 0.6 % (0-4); Hematocrit 43.3 % (37.0-47.0); Hemoglobin 13.8 g/dl (12.0-16.0); Imm Gran Abs Auto 0.04 X10*3/uL (0.00-0.03); Imm Gran Pct Auto 0.4 % (0.0-0.4); Lymphocytes Absolute Auto 2.6 X10*3/uL (1.2-4.9); Lymphocytes Percent Auto 28.9 % (20-40); Mean Corpuscular HGB Conc 31.9 g/dl (31.0-35.0); Mean Corpuscular Hemoglobin 27.4 pg (27.0-33.0); Mean Corpuscular Volume 86.1 fL (80.0-98.0); Mean Platelet Volume 10.2 fL (9.4-12.3); Monocytes Absolute Auto 0.5 X10*3/uL (0.1-1.2); Monocytes Percent Auto 5.3 % (2-11); Neutrophils Absolute Auto 5.9 x10*3/uL (2.0-8.3); Neutrophils Percent Auto 64.6 % (45-73); Platelet Count 374 X10*3/uL (160-400); Red Blood Count 5.03 X10*6/uL (4.20-5.50); Red Cell Distribution Width 13.9 % (11.0-16.0); White Blood Count 9.1 X10*3/uL (4.8-10.8)
[2023-09-11 12:09] LABS: INTERNATIONAL NORM RATIO 1.1 (0.9-1.1); Prothrombin Time 13.1 SEC (11.1-13.3)
[2023-09-11 12:50] LABS: Anion Gap 12 (12-20); Blood Urea Nitrogen 12 mg/dL (9-16); Carbon Dioxide 26 mmol/L (22-29); Chloride 107 mmol/L (96-108); Estimated Glomerular Filt Rate > 60; Glucose Random 94 mg/dL (60-115); Potassium 4.5 mmol/L (3.3-5.1); Sodium 140 mmol/L (135-145)
== END 2023-09-11 11:37 | disposition home or self-care (01) ==
LOC: HO.LAB 11:36
PROVIDERS: PCP Internal Medicine; Visit Provider Nurse Practitioner
DX: Z01.812 Encounter for preprocedural laboratory examination (principal); I20.89 Other forms of angina pectoris; Z98.890 Other specified postprocedural states; Z95.5 Presence of coronary angioplasty implant and graft
CPT/HCPCS: 36415; 80048; 85025; 85610

== ENCOUNTER 2023-09-13 13:10 | Outpatient (REF) | payer MEDICARE, MEDICAID, SELFPAY ==
[2023-07-16 10:06] VITALS: BP 96/60; BP 96/66
[2023-08-12 14:54] VITALS: BP 96/66; BMI 22.5
--- NOTE | ~2023-09-13 | US_ITS ---
EXAMINATION: US RETROPERITONEAL LIMITED (RENAL ONLY) CLINICAL INFORMATION: Calculus of kidney. COMPARISON: Ultrasound abdomen complete 04/19/2023 and 02/21/2022. CT abdomen and pelvis 02/01/2023. X-ray abdomen 04/27/2016. TECHNIQUE: Real-time imaging of the kidneys. Limited visualization due to bowel gas. FINDINGS: RIGHT KIDNEY: 11.2 x 4.1 x 4.6 cm (SAG x AP x TRV). No hydronephrosis. No renal calculi. Renal cortical thickness is normal. Limited visualization. LEFT KIDNEY: 10.5 x 4.3 x 4.3 cm (SAG x AP x TRV). No hydronephrosis. No renal calculi. Renal cortical thickness is normal. Limited visualization. ADDITIONAL FINDINGS: Incidental note on limited views of the liver of increased echogenicity, characteristic of hepatocellular disease, possibly due to hepatic steatosis and better demonstrated on abdominal ultrasound of 04/22/2023. US/US renal BI IMPRESSION: 1. No hydronephrosis. No renal calculi. 2. Incidental note on limited views of the liver of increased echogenicity, characteristic of hepatocellular disease, possibly due to hepatic steatosis and better demonstrated on abdominal ultrasound of 04/22/2023.
== END 2023-09-13 13:11 | disposition home or self-care (01) ==
LOC: HO.US 13:10
PROVIDERS: PCP Internal Medicine; Visit Provider Nurse Practitioner Family
DX: N20.0 Calculus of kidney (principal)
CPT/HCPCS: 76775

== ENCOUNTER 2023-09-19 08:42 | Outpatient (AMB) | payer MEDICARE, MEDICAID, SELFPAY ==
[2023-07-16 10:06] VITALS: BP 96/60; BP 96/66
[2023-08-12 14:54] VITALS: BP 96/66; BMI 22.5
[2023-09-19 08:39] VITALS: BP 96/60; BP 96/66; BMI 22.5
--- NOTE | 2023-09-19 08:47 | MHC.OFFVIS ---
Intake Vital Signs 09/19/23 08:49 Height 4 ft 10 in Weight 105 lb BMI 21.9 BP 122/86 Blood Pressure Location Lt brachial Position Sitting Pulse 102 H Intake Visit Reasons: Follow up Intake Note: Patient follow up for Colitis. Patient cc: Nauseas, abdominal pain, gassy, constipation and soft stool, and some swallowing problems. Environmental Lead Required: No Accompanied by: Self / Same As Patient Allergies dog dander [DOGS] Allergy (Intermediate, Verified 09/19/23 08:46) Respiratory distress shellfish derived Allergy (Intermediate, Verified 09/19/23 08:46) Hives methylprednisolone Allergy (Verified 09/19/23 08:46) Rash etanercept [From Enbrel] Adverse Reaction (Intermediate, Verified 09/19/23 08:46) Facial Swelling ibuprofen [Ibuprofen] Adverse Reaction (Intermediate, Verified 09/19/23 08:46) STOMACH UPSET, abdominal pain, nausea and vomiting metformin Adverse Reaction (Intermediate, Verified 09/19/23 08:46) Diarrhea metronidazole [From FLAGYL] Adverse Reaction (Intermediate, Verified 09/19/23 08:46) Diarrhea prednisone Adverse Reaction (Intermediate, Verified 09/19/23 08:46) hallucinations, higher than 20 Medication List - Last Reconciled 09/19/23 by Ruth Roman MD albuterol sulfate 90 mcg/actuation inhalation aspirin 81 mg PO DAILY 90 days blood sugar diagnostic (FreeStyle Lite Strips) Use 1 test strip three times a day budesonide 0.25 mg inhalation BID 30 days aluroycunp-bclalgietklus-eump 50-325-40 mg 1 tab PO Q6H PRN carisoprodol (Soma) 250 mg PO TID PRN codeine-guaifenesin 10-100 mg/5 mL 10 mL PO Q4-6H PRN cyclobenzaprine mg PO dulaglutide (Trulicity) 1.5 mg (0.5 mL) subcut WE@0900 90 days famotidine 20 mg PO BEDTIME 90 days insulin degludec (Tresiba FlexTouch U-100 insulin) 20 units (0.2 mL) subcut BEDTIME 90 days ipratropium bromide 2.5 mL inhalation Q6H PRN ipratropium-albuterol 0.5 mg-3 mg(2.5 mg base)/3 mL 3 mL inhalation Q6H lancets (FreeStyle Lancets) Use 1 lancet once a day letrozole 2.5 mg PO DAILY levalbuterol tartrate 45 mcg/actuation 2 puffs inhalation Q4-6H PRN 30 days lubiprostone (Amitiza) 8 mcg PO BID 90 days mesalamine (Lialda) 2.4 grams (2 x 1.2 gram) PO DAILY 30 days morphine 15 mg PO Q8H PRN nitroglycerin 0.4 mg sublingual Q5M PRN Novolog FlexPen U-100 Insulin (insulin aspart U-100) 2 - 10 units See Protocol subcut TIDAC 30 days NS ondansetron 4 mg PO Q6H PRN pantoprazole 40 mg PO BID 90 days pen needle, diabetic (Comfort EZ Pen [place]) Use 1 pen needle 6 times a day prednisone 5 mg PO DAILY 30 days pregabalin (Lyrica) 200 mg PO BID tamsulosin (Flomax) 0.4 mg PO DAILY tramadol 50 mg PO Q6H PRN trazodone 100 mg PO BEDTIME 90 days walker with seat HPI Follow up HPI Details GI CLINIC VISIT FOR THIS 63-YEAR-OLD FEMALE FOR FU OF GERD AND DYSPHAGIA PT IS KNOWN TO ME FROM PAST GI VISITS FOR COLITIS SEEN ON CT SCAN AND FOR POSITIVE HEP A AB (IG M) Pt was hospitalized at [facility] in 06/27 to 06/29/2022 with abdominal pain, nausea and vomiting. HAD BRONCHOSCOPY ON 08/16? , FOUND TO HAVE GENERALIZED INFLAMMATION.? AND ENDOBRONCHIAL LESION IN THE RIGHT LOWER LOBE WAS SUSPECTED. BIOPSY AND CYTOLOGY IS CONSISTENT WITH MILD INFLAMMATORY CHANGES, NO METAPLASIA NEOPLASTIC CELLS. IMAGING STUDIES:? US WITH DUPLEX: Elevated velocity in the proximal superior mesenteric artery is nonspecific. By velocity criteria, this is consistent with hemodynamically significant stenosis. However, the distal waveforms are not indicative of significant upstream disease and there is no significant stenosis seen on CT from 02/01/2023. 10/2022 BARIUM SWALLOW SHOWED:Following oral administration of thick, thin barium and barium-coated turkey in upright view, there is normal propagation of bolus from the oral cavity through the pharynx, esophagus into stomach without obstruction, narrowing or stricture. There is mild prominence of cricoesophageal sphincter indenting the upper esophagus. There is mild ventral spondylosis at the C5-C6 and C6-C7 disc levels with minimal indentation on the posterior cervical esophageal wall. However, there is no obstruction. On oral administration of barium tablet, there is transient holdup in the mid esophagus and slightly longer in the distal esophagus. 02/21/22 ABD US SHOWED: 1.? Increased hepatic echogenicity suggesting hepatic steatosis. 2.? Nonobstructive calculus in the right renal lower pole measuring 3 mm. 02/[address] SCAN SHOWED:A cause for the patient's diffuse abdominal pain has not been found. Incidental note made of: 1.? Hepatic steatosis. 2.? Small stable adrenal nodule, unchanged over many years 3.? Status post hysterectomy. 08/[address] SCAN SHOWED:Mild bowel wall thickening of the sigmoid colon which could be due to a mild colitis. There is no surrounding pericolonic edema however. There is no bowel obstruction. ENDOSCOPIC STUDIES: 05/2023 CAPSULE ENDOSCOPY SHOWED: Findings: Lower esophagus looked normal, stomach with granular mucosa and patchy erythema consistent with chronic gastritis small bowel entered at 2 hr 36 min min. Mucosa well visualized and appeared normal, no masses, lesions or ulcers seen. cecum entered at 4 hr 44 min and colonic mucosa looked normal Conclusion: chronic gastritis, other santiago neg small bowel study 06/15/22 EGD SHOWED:ESOPHAGUS: Tortuous esophagus with increased tertiary contractions without stricture or ring.? GE junction at 36 cms. No esophagitis or Austin's. STOMACH: Moderate diffuse gastric erythema - no ulcers were seen. Biopsies were obtained from gastric antrum and body. DUODENUM: Normal - biopsied to check for celiac sprue Plan:? Further evaluation with a Duplex US to rule out small bowel ischemia [place] of Dicyclomine prn while awaiting further workup. BIOPSIES SHOWED: A.? Small bowel, biopsy:? Small bowel mucosa with preserved villi and no specific change; no evidence of celiac disease. B.? Gastric antrum, biopsy:? Chronic Helicobacter gastritis with minimal activity and focal intestinal metaplasia; negative for dysplasia.? C.? Gastric body, biopsy:? Chronic Helicobacter gastritis with minimal activity; negative for intestinal metaplasia and dysplasia. 03/24/21 COLONOSCOPY SHOWED:No polyps were detected. Random biopsies were obtained from the right and left colon Moderate to severe diverticulosis seen in the entire colon Of note pt denies additional episodes of fecal incontinence. Plan:? Patient has an appointment on 04/20/21 in the GI Clinic with Ruth Roman M.D. Repeat Colonoscopy in 10 years if biopsies are normal. A handout on diverticulosis was were given in the discharge area BIOPSIES SHOWED: A.? Colon, right, biopsy:? Colonic mucosa within normal limits. B.? Colon, left, biopsy:? Colonic mucosa within normal limits. COMMENT: Diagnostic features of microscopic colitis are not seen. 08/2019:? Colonoscopy Findings:Edema, erythema with friable appearing mucosa and scattered ulcerations from 10 to 30 cms - random biopsies obtained. Colon inflammation can be due to ischemic colitis or stercoral ulcers related to constipation and irritation of the colon from hard stools. No polyps were detected Moderate to severe diverticulosis seen in the left colon. Plan: Await pathology results. Regular diet today. Start Miralax once daily for constipation. Continue IV antibiotics x 24 hours and then switch to PO antibiotics in the am for another 3 days. Patient to be scheduled for a FU appointment in the GI Clinic with Ruth Roman M.D. in 1-2 weeks. Above findings were reviewed with the patient. BIOPSIES SHOWED: Colon, left, biopsies: Colonic mucosa with focal superficial epithelial sloughing, hemorrhage and hyalinization possibly representing early ischemic colitis;? negative for dysplasia/malignancy. TODAY'S VISIT: Continues to have nausea, bloating, gas and poor appetite Notes early satiety and denies vomiting. Hx of long standing DM and advised to schedule a GES Can go days without a BM - has a BM every 4-5 days. Stool is soft and mushy and hard to pass. Lately every time she coughs, she feels pressure and has to go to the bathroom and passes a small piece of stool. Takes Amitiza daily and colace prn PAST VISITS: Seen at [facility] ER on 07/24/23 with abd pain and rectal bleeding CT scan was done and pt informed she had diverticulitis and treated with PO antibiotics (amox) for a week. Seen again on 08/10 at [facility] and had repeat CT scan which showed colitis and kidney stones Prescribed amoxicillin x 10 days and oxycodone and has not passed the kidney stone yet. Lab results reviewed - IBD serology suggestive of Crohn's disease Pt seen at [facility] ED on 05/16/23 with chest pain and dubois was negative. Pt is on sulfasalazine for RA which is on hold to see if nausea gets better. 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 Unable to take biologics for RA due to COPD. Tried Humira and had to be stopped due to facial swelling. Tried Embril and was stopped due to worsening COPD. She was told by her Anesthetic Assistant that she is unable to use biologics I have been feeling horrible Has dizziness and nausea x past 3 weeks. Went to bed Saturday night and noted pain in the pit of the stomach. Had chills, felt hot and cold and had sweating and generalized itching [place] better yesterday and had diarrhea. Feels a little better today. Has been taking Marijuana once a day for nausea for the past 2 weeks and it helps the nausea. Hospitalized at [facility] from 01/23 to 01/26/23 with an episode of ischemic colitis and evaluated by Flex Sig Pt completed course of antibiotics prescribed at discharge. Pt complains of a nausea, abdominal pain, sour stomach and diarrhea with black stools for the past 3 days. Having 4 pudding like stools a day. Abd pain comes and goes. Pt complains of sweating and denies fevers. Pt complains of weakness and dizziness. Denies hx of PUD, aspirin or NSAID use. Took peptobismol 1 tablet last Saturday which did not help the pain. Takes Ondansetron for nausea which has not been helpful. PAST VISTS: Seen at [facility] ED in Nov and early Dec with abdominal pain, nausea and vomiting. Discharged home on Prednisone and had to return with worsening abdominal pain. Thinks prednisone may have aggravated the pain. Doing pretty good today. Notes intermittent nausea Appetite is fair. Few days ago, she noted cramping related to constipation. She was able to have a BM with diarrhea and pain improved Has a BM twice a week - no BM in the past 4 days. Takes Amitiza twice daily for constipation and Senna prn when she feels constipated. Started on sulfasalazine 2 months ago for RA - unable to tolerate biologics Pt stopped taking pantoprazole 2 months ago (she was told by the pharmacist that she cant take Pantoprazole with Famotidine) Pt advised to resume Pantoprazole Weight is 113 lbs - gained 4 lbs. She stopped the brillinta 2 weeks ago since her symptoms get worse after taking these medications. Wt loss from 140 in Dec, 2021 to 115 lbs since she is eating less. Hospitalized with NSTEMI in Dec, 2021 and had 2 stents. Taking aspirin and Brilinta twice a day Had an MRI on the brain and changes noted on the right and left side Waiting to see a Neurologist. Noted HAs and nausea since 12/22/21 - assumed nausea was due to migraines. Still having some ZHENG's. Nausea is constant. Notes heartburn and regurgitation in the middle of the night She is unable to breath and has? water brash. Not eating and loosing weight. Denies constipation or diarrhea. Patient notes heartburn and dysphagia to solids and liquids. Gained 5 lbs in 2 weeks. Has COPD and asthma. Patient denies known family history of colon polyps or colon cancer [facility] Medical History (Updated 09/04/23 @ 10:26 by VICK Olguin) Tendonitis of ankle or foot Colitis Cough Anxiety CAD (coronary artery disease) HLD (hyperlipidemia) HTN (hypertension) T2DM (type 2 diabetes mellitus) COPD exacerbation Hyperkalemia Atherosclerotic cardiovascular disease Hospital discharge follow-up GERD (gastroesophageal reflux disease) CVA (cerebral vascular accident) Breast pain, right Rash Bloody diarrhea PAD (peripheral artery disease) Hyperlipidemia LDL goal <100 COPD (chronic obstructive pulmonary disease) Infiltrating ductal carcinoma of left breast, stage 2 Insomnia Dyslipidemia Bipolar 1 disorder, depressed Cough Restrictive airway disease Hypothyroid IDDM (insulin dependent diabetes mellitus) Vitamin D deficiency Osteoporosis Hyperparathyroidism Thyroid nodule Depression Fibromyalgia Seropositive rheumatoid arthritis Reactive airways dysfunction syndrome Allergic rhinitis Irritable bowel Anxiety Bronchial asthma Diabetes type 2, uncontrolled Hypertension Surgical History Hx of sigmoidoscopy History of bronchoscopy Hx of endoscopy H/O cardiac catheterization History of lumpectomy of left breast History of pubovaginal sling History of esophagogastroduodenoscopy (EGD) History of tubal ligation History of colonoscopy History of bunionectomy of both great toes H/O: hysterectomy Family History Mother Diabetes HTN (hypertension) Uterus cancer Malignant tumor of head Breast cancer Father Diabetes HTN (hypertension) CVD (cardiovascular disease) Heart problem Maternal Aunt Breast cancer Brother Myocardial infarction S/P CABG x 4 Family/Other FH: mental illness Family/Other Lung cancer Other Mental health disorder Social History Household Members: Family Household Members Other:: sister Housing: House Are you a primary career placement specialist to a significant other at home: No Do you presently have visiting nurse or other home services: Yes (sister is insurance agency sales manager) Alcohol intake: never Patient Tobacco Use Status: Current everyday Tobacco user Tobacco use type: Cigarette Cigarette Packs Per Day: 0.5 Cigarettes Per Day: 4 Years Smoked: 12 e-Cigarette/Vaping Use: Never Used Second Hand Smoke Exposure: Yes Advance Directives Date on File: 12/22/21 service: No Current occupational status: disabled Current occupation: rt handed Cognitive needs: No Hearing needs: No Vision needs: Yes Review of Systems Const All systems reviewed & are unremarkable except as noted in HPI and below Physical Exam Vital Signs: Last Vital Signs Pulse 102 H 09/19/23 08:49 BP 122/86 09/19/23 08:49 BMI result Body Mass Index 21.9 Const General: healthy appearing and no acute distress Nutritional Appearance: average body habitus Orientation/consciousness: patient oriented x3 Limitations: no limitations HEENT Head: Yes normal to inspection Ears: hearing grossly normal bilaterally Eyes Sclerae: sclerae normal Pupils: Equal, round and reactive pupils present Neck Neck: Yes normal visual inspection Chest Chest palpation & inspection: normal inspection of the chest Resp Effort & Inspection: normal respiratory effort Auscultation: clear to auscultation bilaterally Cardio Palpation: normal PMI Rate: regular rate Rhythm: regular rhythm Heart sounds: S1 normal heart sound present, S2 normal heart sound present and no murmurs GI Palpation (GI): Soft to palpation, nontender and No hepatosplenomegaly present Auscultation: normal bowel sounds Rectal Exam - Female: deferred Skin General skin exam: no rashes or lesions noted Neuro General: patient oriented x3, gait normal and moves all extremities Cranial nerves: Yes Equal, round and reactive pupils present Psych Appearance: grossly normal Mental Status: mental status grossly normal Assessment & Plan Assessment & Plan (1) Colitis: Code(s): K52.9 - Noninfective gastroenteritis and colitis, unspecified (2) GERD (gastroesophageal reflux disease): Code(s): K21.9 - Gastro-esophageal reflux disease without esophagitis (3) History of Helicobacter pylori infection: Code(s): Z86.19 - Personal history of other infectious and parasitic diseases (4) History of ischemic colitis: Code(s): Z87.19 - Personal history of other diseases of the digestive system (5) Thyroid nodule: Code(s): E04.1 - Nontoxic single thyroid nodule Plan 63 YF with rheumatoid arthritis--Halista @ [facility]-discharged, COPD, fibromyalgia, asthma, Elevated levels of transaminases? & lactic acid dehydrogenase, Hepatic steatosis Thalamic pain syndrome,? H. pylori infection - treated, IBS (irritable bowel syndrome), TIA'S, urinary incontinence, chronic bronchitis, anxiety, depression, diabetes mellitus, left breast? cancer. Patient followed in GI for GERD and long standing constipation?likely due to IBS with constipation/ slow transit due to medications. Partial? improvement with Senna 1-2 tablet at? bedtime. Patient was diagnosed with Helicobacter pylori gastritis on EGD in?06/2018 and was treated with triple therapy. 06/2021 FU stool antigen for H pylori was negative Pt was advised to start Pantoprazole twice daily for GERD She has a hx of dysphagia likely due to esophageal motility disorder - no stricture or EOE noted on past EGD. Pt has been followed recently for upper abdominal pain, nausea and vomiting with decreased PO intake and wt loss 06/15/22 EGD was performed in findings as noted above Pt was advised to use a Foam Wedge at night and take famotidine at bedtime for nighttime reflux symptoms. If symptoms persist she may need further evaluation with Esophageal manometry and pH testing prior to considering fundoplication. 01/10/23 Pt seen with worsening symptoms, stopped taking Pantoprazole 2 months ago and advised to resume and take Famotidine prn for breakthrough symptoms 02/01/23 Pt complains of abd pain, bloating with diarrhea and black stools x past 3 days with weakness and dizziness Patient was advised to go to [facility] ER for further evaluation with labs and repeat CT scan (for Fu of ischemic colitis) Pt had a stable Hct and stool occult blood was negative 04/05/23 Pt advised to have labs and schedule an abd US with doppler to rule out mesenteric ischemia which was negative Stool calprotectin was borderline at 92. C1q, C1 estrase inhibitor protein and C4 were normal 04/29/23 IBD serologies were suggestive of Crohn's disease 06/03/23 Capsule Endoscopy showed: Conclusion: chronic gastritis, other santiago neg small bowel study . 08/16/23 Pt advised to start Lialda 2.4 grams daily for suspected Crohn's disease (Abd pain, nausea, fecal calprotectin of 92 and IBD serologies positive for Crohn's disease) Referral was sent to urology for follow-up of kidney stones Records requested from [facility] ER visit on 08/10/23 09/19/23 Continues to have nausea, bloating, gas and poor appetite Notes early satiety and denies vomiting. Hx of long standing DM. Pt advised to increase Amitiza to 16 mcg twice a day and to schedule a GES Fu in 8 weeks Orders: Orders NM gastric emptying study Today E11.9 - Type 2 diabetes mellitus without complications, R68.81 - Early satiety TSH reflex Free T4 Today E04.1 - Nontoxic single thyroid nodule Medications: Changed From lubiprostone (Amitiza) 8 mcg PO BID 90 days 180 caps 1RF K59.09 - Other constipation To lubiprostone (Amitiza) 16 mcg (2 x 8 mcg) PO BID 90 days 360 caps 1RF K59.09 - Other constipation Quality Reporting (2019) Adult ([facility] 13801/09/69) Smoking risk assessment performed?: Yes Patient Tobacco Use Status: Current everyday Tobacco user Coding Level of Care Code Est Pt Level 4 (44931) Diagnoses Colitis K52.9 Gastroesophageal reflux disease without esophagitis K21.9 History of Helicobacter pylori infection Z86.19 History of ischemic colitis Z87.19 Thyroid nodule E04.1 Time Spent (min) 21
[2023-09-19 08:49] VITALS: BP 122/86; PULSE 102; BMI 21.9
== END 2023-09-19 09:20 | disposition home or self-care (01) ==
PROVIDERS: PCP Internal Medicine; Visit Provider Internal Medicine Gastroenterology
DX: K52.9 Noninfective gastroenteritis and colitis, unspecified (principal); K21.9 Gastro-esophageal reflux disease without esophagitis; Z86.19 Personal history of other infectious and parasitic diseases; Z87.19 Personal history of other diseases of the digestive system; E04.1 Nontoxic single thyroid nodule
CPT/HCPCS: 99214

== ENCOUNTER → 2023-09-19 08:42 | Outpatient (BNVA) | payer MEDICARE, MEDICAID, SELFPAY ==
[2023-09-19 08:39] VITALS: BP 96/60; BP 96/66; BMI 22.5
== END ==
PROVIDERS: PCP Internal Medicine; Visit Provider Internal Medicine Gastroenterology
DX: K52.9 Noninfective gastroenteritis and colitis, unspecified (principal); K21.9 Gastro-esophageal reflux disease without esophagitis; E04.1 Nontoxic single thyroid nodule; Z87.19 Personal history of other diseases of the digestive system; Z86.19 Personal history of other infectious and parasitic diseases
CPT/HCPCS: 99212

== ENCOUNTER 2023-09-23 15:16 | Outpatient (AMB) | payer MEDICARE, MEDICAID, SELFPAY ==
[2023-07-16 10:06] VITALS: BP 96/60; BP 96/66
[2023-08-12 14:54] VITALS: BP 96/66; BMI 22.5
--- NOTE | 2023-09-23 15:19 | MHC.OFFVIS ---
Intake Vital Signs 09/23/23 15:25 Height 4 ft 10 in Weight 105 lb 13.15 oz BMI 22.1 BP 108/60 Blood Pressure Location Lt brachial Position Sitting Respiration 14 Pulse 100 Pulse Source Palpation Intake Visit Reasons: Follow up post cardiac cath Intake Note: Sosa is a 63 year old female who presents today for a follow up for her post cardiac cath. Patient reports she is doing well. Allergies dog dander [DOGS] Allergy (Intermediate, Verified 09/23/23 15:26) Respiratory distress shellfish derived Allergy (Intermediate, Verified 09/23/23 15:26) Hives methylprednisolone Allergy (Verified 09/23/23 15:) Rash etanercept [From Enbrel] Adverse Reaction (Intermediate, Verified 09/23/23 15:) Facial Swelling ibuprofen [Ibuprofen] Adverse Reaction (Intermediate, Verified 09/23/23 15:) STOMACH UPSET, abdominal pain, nausea and vomiting metformin Adverse Reaction (Intermediate, Verified 09/23/23 15:) Diarrhea metronidazole [From FLAGYL] Adverse Reaction (Intermediate, Verified 09/23/23 15:) Diarrhea prednisone Adverse Reaction (Intermediate, Verified 09/23/23 15:26) hallucinations, higher than 20 Medication List - Last Reconciled 09/23/23 by Joseph Salmon MD albuterol sulfate 90 mcg/actuation inhalation aspirin 81 mg PO DAILY 90 days blood sugar diagnostic (FreeStyle Lite Strips) Use 1 test strip three times a day budesonide 0.25 mg inhalation BID 30 days crbyvvtwbu-mspihtwhxotsm-frva 50-325-40 mg 1 tab PO Q6H PRN carisoprodol (Soma) 250 mg PO TID PRN codeine-guaifenesin 10-100 mg/5 mL 10 mL PO Q4-6H PRN cyclobenzaprine mg PO dulaglutide (Trulicity) 1.5 mg (0.5 mL) subcut WE@0900 90 days famotidine 20 mg PO BEDTIME 90 days insulin degludec (Tresiba FlexTouch U-100 insulin) 20 units (0.2 mL) subcut BEDTIME 90 days ipratropium bromide 2.5 mL inhalation Q6H PRN ipratropium-albuterol 0.5 mg-3 mg(2.5 mg base)/3 mL 3 mL inhalation Q6H lancets (FreeStyle Lancets) Use 1 lancet once a day letrozole 2.5 mg PO DAILY levalbuterol tartrate 45 mcg/actuation 2 puffs inhalation Q4-6H PRN 30 days lubiprostone (Amitiza) 16 mcg (2 x 8 mcg) PO BID 90 days mesalamine (Lialda) 2.4 grams (2 x 1.2 gram) PO DAILY 30 days morphine 15 mg PO Q8H PRN nitroglycerin 0.4 mg sublingual Q5M PRN Novolog FlexPen U-100 Insulin (insulin aspart U-100) 2 - 10 units See Protocol subcut TIDAC 30 days NS ondansetron 4 mg PO Q6H PRN pantoprazole 40 mg PO BID 90 days pen needle, diabetic (Comfort EZ Pen [place]) Use 1 pen needle 6 times a day prednisone 5 mg PO DAILY 30 days pregabalin (Lyrica) 200 mg PO BID tamsulosin (Flomax) 0.4 mg PO DAILY tramadol 50 mg PO Q6H PRN trazodone 100 mg PO BEDTIME 90 days varenicline (Chantix Starting Month Box) PO PER PKG DIR walker with seat HPI HPI Comments History of Present Illness Details 63-year-old female who has known history of coronary disease with previous PCI to left circumflex artery in December 2021, hypertension, hyperlipidemia, type 2 diabetes, COPD and fibromyalgia. She is returning for follow-up. She was seen last time with chest discomfort. There was some dyspnea on exertion also. She underwent stress echocardiogram which she was able to exercise to 7 metabolic equivalents without any EKG changes or wall motion abnormalities. 11/2022: Unfortunately had influenza in October and is recovering from that. Still having significant shortness of breath and continues to have mild wheezes. She just finished her prednisone taper yesterday. She is having upper abdominal pain. Denying any chest discomfort on follow-up. No peripheral edema. No obvious signs of heart failure. 06/10/23: She returns for follow-up. She is saying she has been experiencing significant shortness of breath and has been using the inhaler and nebulizers quite frequently. She also had some chest pain and went to emergency department and was ruled out. She has stress testing recently which was normal. She is saying that depending on whether her breathing changes. If it is humid and hot outside she gets really out of breath. She is still smoking 2 cigarettes per day. Overall from cardiovascular point of view she has stable angina and mostly has shortness of breath due to COPD. 09/23/23: She returns for follow-up. She underwent stress testing where she had hypotensive response to exercise. She was taken for cardiac catheterization which revealed stable disease with no significant LAD or RCA stenosis. Her previous circumflex stents were patent. She returns for follow-up and continues to smoke. She continues to have some sharp non anginal chest pains. She is following with pulmonology for COPD. She was on Wellbutrin which was stopped because she had history of seizures. We discussed about starting Chantix and she is agreeable. [facility] Medical History (Updated 09/04/23 @ 10:26 by VICK Olguin) Tendonitis of ankle or foot Colitis Cough Anxiety CAD (coronary artery disease) HLD (hyperlipidemia) HTN (hypertension) T2DM (type 2 diabetes mellitus) COPD exacerbation Hyperkalemia Atherosclerotic cardiovascular disease Hospital discharge follow-up GERD (gastroesophageal reflux disease) CVA (cerebral vascular accident) Breast pain, right Rash Bloody diarrhea PAD (peripheral artery disease) Hyperlipidemia LDL goal <100 COPD (chronic obstructive pulmonary disease) Infiltrating ductal carcinoma of left breast, stage 2 Insomnia Dyslipidemia Bipolar 1 disorder, depressed Cough Restrictive airway disease Hypothyroid IDDM (insulin dependent diabetes mellitus) Vitamin D deficiency Osteoporosis Hyperparathyroidism Thyroid nodule Depression Fibromyalgia Seropositive rheumatoid arthritis Reactive airways dysfunction syndrome Allergic rhinitis Irritable bowel Anxiety Bronchial asthma Diabetes type 2, uncontrolled Hypertension Surgical History Hx of sigmoidoscopy History of bronchoscopy Hx of endoscopy H/O cardiac catheterization History of lumpectomy of left breast History of pubovaginal sling History of esophagogastroduodenoscopy (EGD) History of tubal ligation History of colonoscopy History of bunionectomy of both great toes H/O: hysterectomy Family History Mother Diabetes HTN (hypertension) Uterus cancer Malignant tumor of head Breast cancer Father Diabetes HTN (hypertension) CVD (cardiovascular disease) Heart problem Maternal Aunt Breast cancer Brother Myocardial infarction S/P CABG x 4 Family/Other FH: mental illness Family/Other Lung cancer Other Mental health disorder Social History Household Members: Family Household Members Other:: sister Housing: House Are you a primary intensive care medicine specialist to a significant other at home: No Do you presently have visiting nurse or other home services: Yes (sister is awning installer) Alcohol intake: never Patient Tobacco Use Status: Current everyday Tobacco user Tobacco use type: Cigarette Cigarette Packs Per Day: 0.5 Cigarettes Per Day: 4 Years Smoked: 12 e-Cigarette/Vaping Use: Never Used Second Hand Smoke Exposure: Yes Advance Directives Date on File: 12/22/21 service: No Current occupational status: disabled Current occupation: rt handed Cognitive needs: No Hearing needs: No Vision needs: Yes Physical Exam Vital Signs: Last Vital Signs Pulse 100 09/23/23 15:25 Resp 14 09/23/23 15:25 BP 108/60 09/23/23 15:25 BMI result Body Mass Index 22.1 GENERAL APPEARANCE: in no acute distress, pleasant. NECK: no carotid bruit, no jugular venous distention. SKIN: no suspicious lesions, warm and dry. HEART: no murmurs, regular rate and rhythm. Tachycardic. LUNGS: Lungs clear to auscultation. ABDOMEN: soft. EXTREMITIES: no edema. PERIPHERAL PULSES: equal. NEUROLOGIC: No gross deficits, AAO X 3 Assessment & Plan Assessment & Plan (1) Stable angina: Code(s): I20.8 - Other forms of angina pectoris (2) Smoker: Comment: Has past history of smoking 50 years. Currently smoking about 3-5 cigarettes a day. Counseled once again that she must quit completely. Advised that her frequent cough is definitely related to her ongoing smoking. Discussed with patient that smoking can make RA worse Code(s): F17.200 - Nicotine dependence, unspecified, uncomplicated (3) Essential hypertension: Code(s): I10 - Essential (primary) hypertension Plan Pleasant 63-year-old female who is here for follow-up. She is a smoker and we discussed about smoking cessation. I am sending Chantix for her. She has non anginal chest pain. Her dyspnea on exertion is due to lung disease. Blood pressure control otherwise is good. Overall clinically stable. Thank you for allowing me to participate in the care of your patient. Please feel free to contact me if you have any questions. Medications: New varenicline (Chantix Starting Month Box) PO PER PKG DIR 53 ea 0RF F17.200 - Nicotine dependence, unspecified, uncomplicated Quality Reporting (2019) Adult ([facility] 138/01/09/69) Smoking risk assessment performed?: Yes Patient Tobacco Use Status: Current everyday Tobacco user Coding Level of Care Code Est Pt Level 3 (03849) Diagnoses Stable angina I20.8 Smoker F17.200 Essential hypertension I10
[2023-09-23 15:25] VITALS: BP 108/60; PULSE 100; RESP 14; BMI 22.1
== END 2023-09-23 15:55 | disposition home or self-care (01) ==
PROVIDERS: PCP Internal Medicine; Visit Provider Internal Medicine Cardiovascular Disease
DX: I20.8 Other forms of angina pectoris (principal); F17.200 Nicotine dependence, unspecified, uncomplicated; I10 Essential (primary) hypertension
CPT/HCPCS: 99213

== ENCOUNTER → 2023-09-23 15:16 | Outpatient (BNVA) | payer MEDICARE, MEDICAID, SELFPAY ==
[2023-09-19 08:39] VITALS: BP 96/60; BP 96/66; BMI 22.5
== END ==
PROVIDERS: PCP Internal Medicine; Visit Provider Internal Medicine Cardiovascular Disease
DX: I20.89 Other forms of angina pectoris (principal); I10 Essential (primary) hypertension; F17.210 Nicotine dependence, cigarettes, uncomplicated
CPT/HCPCS: 99212

== ENCOUNTER 2023-09-25 10:23 | Outpatient (REF) | payer MEDICARE, MEDICAID, SELFPAY ==
[2023-09-25 11:38] LABS: Baso%MD 0.2 %; Eos%MD 0.3 %; Hematocrit 42.6 % (37.0-47.0); Hemoglobin 13.5 g/dl (12.0-16.0); IG%MD 0.5 %; Lymph%MD 23.5 %; Mean Corpuscular HGB Conc 31.7 g/dl (31.0-35.0); Mean Corpuscular Hemoglobin 27.1 pg (27.0-33.0); Mean Corpuscular Volume 85.5 fL (80.0-98.0); Mean Platelet Volume 10.5 fL (9.4-12.3); Mono%MD 7.5 %; Platelet Count 318 X10*3/uL (160-400); Red Blood Count 4.98 X10*6/uL (4.20-5.50); Red Cell Distribution Width 13.7 % (11.0-16.0); White Blood Count 9.4 X10*3/uL (4.8-10.8)
[2023-09-25 12:05] LABS: Band Neutrophils Percent 0 % (3-5); Lymphocytes Absolute Manual 2.2 X10*3/uL (1.2-4.9); Lymphocytes Percent Manual 23 % (20-40); Monocytes Absolute Manual 0.3 X10*3/uL (0.1-1.2); Monocytes Percent Manual 3 % (2-11); Neutrophils Percent Manual 74 % (45-73)
[2023-09-25 12:07] LABS: Platelet Estimate NORMAL (NORMAL); Platelet Morphology Comment NORMAL; RBC Morphology NORMAL
[2023-09-26 10:03] LABS: Immunoglobulin E 18 kU/L (<OR=114)
== END 2023-09-25 10:24 | disposition home or self-care (01) ==
LOC: HO.LAB 10:23
PROVIDERS: PCP Internal Medicine; Visit Provider Internal Medicine
DX: J44.9 Chronic obstructive pulmonary disease, unspecified (principal); J30.9 Allergic rhinitis, unspecified; F17.210 Nicotine dependence, cigarettes, uncomplicated; Z79.899 Other long term (current) drug therapy
CPT/HCPCS: 36415; 82785; 85007; 85027; 99212

== ENCOUNTER 2023-09-25 10:23 | Outpatient (AMB) | payer MEDICARE, MEDICAID, SELFPAY ==
[2023-07-16 10:06] VITALS: BP 96/60; BP 96/66
[2023-08-12 14:54] VITALS: BP 96/66; BMI 22.5
[2023-09-25 10:35] VITALS: BP 110/70; PULSE 117; O2SAT 96; BMI 21.9
--- NOTE | 2023-09-25 10:35 | MHC.OFFVIS ---
Intake Vital Signs 09/25/23 10:35 Height 4 ft 10 in Weight 105 lb BMI 21.9 BP 110/70 Blood Pressure Location Lt brachial Position Sitting Pulse 117 H Pulse Source Pulse Oximeter Pulse Oximetry (%) 96 Oxygen Delivery Method Room Air Intake Visit Reasons: Asthma Intake Note: pt is here for follow up and states her breathing has not been good for the past couple of days, coughing with phlegm, turning to green. tight in chest. Cardiology is asking what stage COPD pt is dx with. They are concerned about her breathing. Supply Chain Design Manager Required: No Allergies dog dander [DOGS] Allergy (Intermediate, Verified 09/25/23 12:15) Respiratory distress shellfish derived Allergy (Intermediate, Verified 09/25/23 12:15) Hives methylprednisolone Allergy (Verified 09/25/23 12:15) Rash etanercept [From Enbrel] Adverse Reaction (Intermediate, Verified 09/25/23 12:15) Facial Swelling ibuprofen [Ibuprofen] Adverse Reaction (Intermediate, Verified 09/25/23 12:15) STOMACH UPSET, abdominal pain, nausea and vomiting metformin Adverse Reaction (Intermediate, Verified 09/25/23 12:15) Diarrhea metronidazole [From FLAGYL] Adverse Reaction (Intermediate, Verified 09/25/23 12:15) Diarrhea prednisone Adverse Reaction (Intermediate, Verified 09/25/23 12:15) hallucinations, higher than 20 Medication List - Last Reconciled 09/25/23 by Marry Baum MD albuterol sulfate 90 mcg/actuation inhalation aspirin 81 mg PO DAILY 90 days blood sugar diagnostic (FreeStyle Lite Strips) Use 1 test strip three times a day budesonide 0.25 mg inhalation BID 30 days bsyagtvxzf-umtgvyobzypfj-ingv 50-325-40 mg 1 tab PO Q6H PRN carisoprodol (Soma) 250 mg PO TID PRN codeine-guaifenesin 10-100 mg/5 mL 10 mL PO Q4-6H PRN cyclobenzaprine mg PO dulaglutide (Trulicity) 1.5 mg (0.5 mL) subcut WE@0900 90 days famotidine 20 mg PO BEDTIME 90 days insulin degludec (Tresiba FlexTouch U-100 insulin) 20 units (0.2 mL) subcut BEDTIME 90 days ipratropium bromide 2.5 mL inhalation Q6H PRN ipratropium-albuterol 0.5 mg-3 mg(2.5 mg base)/3 mL 3 mL inhalation Q6H lancets (FreeStyle Lancets) Use 1 lancet once a day letrozole 2.5 mg PO DAILY levalbuterol tartrate 45 mcg/actuation 2 puffs inhalation Q4-6H PRN 30 days lubiprostone (Amitiza) 16 mcg (2 x 8 mcg) PO BID 90 days mesalamine (Lialda) 2.4 grams (2 x 1.2 gram) PO DAILY 30 days morphine 15 mg PO Q8H PRN nitroglycerin 0.4 mg sublingual Q5M PRN Novolog FlexPen U-100 Insulin (insulin aspart U-100) 2 - 10 units See Protocol subcut TIDAC 30 days NS ondansetron 4 mg PO Q6H PRN pantoprazole 40 mg PO BID 90 days pen needle, diabetic (Comfort EZ Pen [place]) Use 1 pen needle 6 times a day prednisone 5 mg PO DAILY 30 days pregabalin (Lyrica) 200 mg PO BID tamsulosin (Flomax) 0.4 mg PO DAILY tramadol 50 mg PO Q6H PRN trazodone 100 mg PO BEDTIME 90 days varenicline (Chantix Starting Month Box) PO PER PKG DIR walker with seat Do you need a note to return to daycare/school/sports/work: No HPI Asthma HPI Details 63 YEARS OLD FEMALE IS HERE FOR PULMONARY FOLLOW-UP. SHE CONTINUES TO SMOKE CURRENTLY BOUT 2-3 CIGARETTES A DAY. CONTINUES TO HAVE VERY FREQUENT BOUTS OF COUGH. THE COUGH IS BROUGHT ON BY ANY EXERTION OR EVEN WITH TALKING THE ONLY MEDICINE WHICH HELPS TO SUPPRESS HER COUGH IS ,GUAIFENESIN WITH CODEINE. I THINK HER CONTINUED SMOKING, ANXIETY, AND BIPOLAR DISORDER CONTRIBUTE TO COUGH. SHE ALSO GETS SHORT OF BREATH ON MINIMAL EXERTION. SHE CLAIMS THAT SHE IS USING HER MEDS PRESCRIBED. [facility] Medical History Tendonitis of ankle or foot Colitis Cough Anxiety CAD (coronary artery disease) HLD (hyperlipidemia) HTN (hypertension) T2DM (type 2 diabetes mellitus) COPD exacerbation Hyperkalemia Atherosclerotic cardiovascular disease Hospital discharge follow-up GERD (gastroesophageal reflux disease) CVA (cerebral vascular accident) Breast pain, right Rash Bloody diarrhea PAD (peripheral artery disease) Hyperlipidemia LDL goal <100 COPD (chronic obstructive pulmonary disease) Infiltrating ductal carcinoma of left breast, stage 2 Insomnia Dyslipidemia Bipolar 1 disorder, depressed Cough Restrictive airway disease Hypothyroid IDDM (insulin dependent diabetes mellitus) Vitamin D deficiency Osteoporosis Hyperparathyroidism Thyroid nodule Depression Fibromyalgia Seropositive rheumatoid arthritis Reactive airways dysfunction syndrome Allergic rhinitis Irritable bowel Anxiety Bronchial asthma Diabetes type 2, uncontrolled Hypertension Surgical History Hx of sigmoidoscopy History of bronchoscopy Hx of endoscopy H/O cardiac catheterization History of lumpectomy of left breast History of pubovaginal sling History of esophagogastroduodenoscopy (EGD) History of tubal ligation History of colonoscopy History of bunionectomy of both great toes H/O: hysterectomy Family History Mother Diabetes HTN (hypertension) Uterus cancer Malignant tumor of head Breast cancer Father Diabetes HTN (hypertension) CVD (cardiovascular disease) Heart problem Maternal Aunt Breast cancer Brother Myocardial infarction S/P CABG x 4 Family/Other FH: mental illness Family/Other Lung cancer Other Mental health disorder Social History Household Members: Family Household Members Other:: sister Housing: House Are you a primary client care representative to a significant other at home: No Do you presently have visiting nurse or other home services: Yes (sister is dehydrogenation supervisor) Alcohol intake: never Patient Tobacco Use Status: Current everyday Tobacco user Tobacco use type: Cigarette Cigarette Packs Per Day: 0.5 Cigarettes Per Day: 4 Years Smoked: 12 e-Cigarette/Vaping Use: Never Used Second Hand Smoke Exposure: Yes Advance Directives Date on File: 12/22/21 service: No Current occupational status: disabled Current occupation: rt handed Cognitive needs: No Hearing needs: No Vision needs: Yes Review of Systems Const All systems reviewed & are unremarkable except as noted in HPI and below Eyes Reports no additional complaints ENT Reports nasal congestion (Mild off and) Card Denies chest pain, Denies irregular heart rhythm and Denies leg edema Resp Reports as per HPI GI Reports heartburn (Controlled with the omeprazole) Reports no additional complaints Musc Reports arthralgias (Case of rheumatoid arthritis) Skin/Breast Reports system reviewed and no additional complaints, except as documented Neuro Reports no additional complaints Psych Reports no additional complaints Physical Exam Vital Signs: Last Vital Signs Pulse 117 H 09/25/23 10:35 BP 110/70 09/25/23 10:35 Pulse Ox 96 09/25/23 10:35 Oxygen Delivery Method Room Air 09/25/23 10:35 BMI result Body Mass Index 21.9 Const General: comfortable, no acute distress, alert and awake Orientation/consciousness: patient oriented x3 HEENT Head: Yes normal to inspection General nose exam: No nasal polyps present and No nasal discharge present Face and sinus: Yes sinuses nontender Mouth: oropharynx normal Throat: Yes posterior oropharynx normal Eyes General: appearance normal, both eyes and all related structures Neck Neck: Yes normal visual inspection, Yes no lymphadenopathy, Yes trachea midline and Yes no JVD Thyroid: Thyroid normal Chest Chest palpation & inspection: normal inspection of the chest, normal palpation of entire chest wall and no tenderness Resp Other: Percussion note is resonant. Breath sounds are distant on both sides. Patient gets bouts of cough with any attempt to do deep breathing. It seems that she has very hypersensitive airways. NO WHEEZES ARE HEARD WHEN SHE IS QUIET AND RESTING. Cardio Palpation: normal PMI Rate: regular rate Rhythm: regular rhythm Heart sounds: no gallops and no murmurs Peripheral pulses: Peripheral pulses 2+ throughout GI Palpation (GI): Soft to palpation, nontender, No hepatosplenomegaly present and no masses Auscultation: normal bowel sounds Back/Spine/Pelvis Thoracic/Lumbar Spine: thoracic and lumbar spine normal to inspection Skin General skin exam: no rashes or lesions noted Neuro General: patient oriented x3 and no focal motor deficits Cranial nerves: Yes CN's II-XII intact bilaterally Extrem General: Yes normal to inspection, Yes no clubbing, cyanosis or edema and Yes no calf tenderness Psych Appearance: grossly normal and well kempt Speech and movement: Normal speech and movement present Results Reviewed Results Reviewed: CTA of chest on 05/16/23 IMPRESSION: No evidence of aortic dissection or aneurysm. No pulmonary emboli are seen. Fleischner guidelines were followed. Chest Xray on 07/04/23 and 08/28/23 Unremarkable . Assessment & Plan Assessment & Plan (1) Cough: Comment: SHE HAS CHRONIC COUGH, MAINLY DUE TO IRRITATION OF THE UPPER AIRWAYS. IT IS PARTLY AGGRAVATED BY SMOKING. TX : Again stressed that she has to quit smoking completely, Use cough drops p.r.n.. Guaifenesin-codeine syrup 100-10 mg/5 ml 122 E spoons Q 6 hours p.r.n. Code(s): R05.9 - Cough, unspecified (2) Allergic rhinitis: Comment: IT is a chronic problem but mild and seems to be under control. Code(s): J30.9 - Allergic rhinitis, unspecified (3) Asthma: Comment: Origionaly she had predominantly Bronchial asthma, as per pulmonary function test in 2016. Her more recent pulmonary function test is c/w moderately severe restrictive and obstructive airway disorder, without much response to bronchodilator therapy. This indicates that she may be already gone into COPD stage. SHE CONTINUES TO HAVE EXCERBATION OF HER ASTHMA/COPD SYMPTOMS . TX See above under COPD . Will keep her on prednisone 5 mg a day . Will check for Eosinophilia, and IgE level Code(s): J45.909 - Unspecified asthma, uncomplicated (4) COPD (chronic obstructive pulmonary disease): Comment: This 62 years old female has been a long-time smoker. She does have moderately severe chronic obstructive pulmonary disease. TX: Ipratropium inh solution one vial in the Neb . q 6 Hrs PRN Levalbuterol HFA 2 puffs q 4-6 Hrs PRN . for wheezing Prednisone 5 mg a Day Code(s): J44.9 - Chronic obstructive pulmonary disease, unspecified Qualifiers: COPD type: unspecified COPD Qualified Code(s): J44.9 - Chronic obstructive pulmonary disease, unspecified Orders: Orders Complete Blood Count Man Dif Today J30.9 - Allergic rhinitis, unspecified, J45.909 - Unspecified asthma, uncomplicated, R05.9 - Cough, unspecified PFT pulmonary function test Today J30.9 - Allergic rhinitis, unspecified, J44.9 - Chronic obstructive pulmonary disease, unspecified, J45.909 - Unspecified asthma, uncomplicated, R05.9 - Cough, unspecified Immunoglobulin E Today J30.9 - Allergic rhinitis, unspecified, J45.909 - Unspecified asthma, uncomplicated, R05.9 - Cough, unspecified Quality Reporting (2019) Adult ([facility] 138/01/09/69) Smoking risk assessment performed?: Yes Patient Tobacco Use Status: Current everyday Tobacco user Coding Level of Care Code Est Pt Level 4 (03541) Diagnoses Cough R05.9 Allergic rhinitis J30.9 Asthma J45.909 Chronic obstructive pulmonary disease, unspecified COPD type J44.9 COPD type: unspecified COPD
== END 2023-09-25 11:13 | disposition home or self-care (01) ==
PROVIDERS: PCP Internal Medicine; Visit Provider Internal Medicine
DX: R05.9 Cough, unspecified (principal); J30.9 Allergic rhinitis, unspecified; J45.909 Unspecified asthma, uncomplicated; J44.9 Chronic obstructive pulmonary disease, unspecified
CPT/HCPCS: 99214

== ENCOUNTER 2023-09-26 09:05 | Outpatient (AMB) | payer MEDICARE, MEDICAID, SELFPAY ==
[2023-09-26 09:07] VITALS: BP 110/78; PULSE 94; BMI 21.7
--- NOTE | 2023-09-26 09:07 | A.OFFVIS_ITS ---
Intake Vital Signs 09/26/23 09:07 Height 4 ft 10 in Weight 103 lb 13.404 oz BMI 21.7 BP 110/78 Blood Pressure Location Lt brachial Position Sitting Pulse 94 Pulse Source Pulse Oximeter Intake Visit Reasons: T2DM Intake Note: New patient to Dr. Adames present today to follow up on Type 2 Diabetes Mellitus. Previously followed by Dr. Harrison. Last Diabetic Eye exam: 2021 Last Podiatry Visit: None Random Glucose: mg/dl HgA1C: 6.9% Phytopathology Teacher Required: No Accompanied by: Self / Same As Patient Allergies dog dander [DOGS] Allergy (Intermediate, Verified 09/26/23:24) Respiratory distress shellfish derived Allergy (Intermediate, Verified 09/26/23:24) Hives methylprednisolone Allergy (Verified 09/26/23) Rash etanercept [From Enbrel] Adverse Reaction (Intermediate, Verified 09/26/23:) Facial Swelling ibuprofen [Ibuprofen] Adverse Reaction (Intermediate, Verified 09/26/23:) STOMACH UPSET, abdominal pain, nausea and vomiting metformin Adverse Reaction (Intermediate, Verified 09/26/23:) Diarrhea metronidazole [From FLAGYL] Adverse Reaction (Intermediate, Verified 09/26/23:) Diarrhea prednisone Adverse Reaction (Intermediate, Verified 09/26/23:) hallucinations, higher than 20 HPI HPI Comments History of Present Illness Details 63 YO F with PMHx T2DM, Bipolar disorder on Glenwood, Invasive Ductal Carcinoma of the L breast s/p lumpectomy and radiation now on letrozole therapy who is seen in F/U for Osteoporosis, T2DM and 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 Patient last saw Dr. Harrison on 06/26/2023 1) T2DM: ? Initially diagnosed with T2DM many years ago. She has a diagnosis of RA and has been on prednisone, now 5 mg PO daily. ? Was initially started on treatment with Tradjenta 5 mg PO daily, and then Tresiba 25 units was added in. She was having persistent hyperglycemia into the 500's.? She initially was insistent that she had been using her BBI regimen as prescribed.? Her doses of both basal and mealtime insulin were continually increased based on this.? She then actually did start using her insulin, and began having multiple daily episodes of hypoglycemia.? She admitted at that time that she had not been using her insulin at all.? We stopped her mealtime humalog at that time and decreased her Tresiba to 35 units.? She has not been using her medications as prescribed. ? Current regimen Trulicity 1.5 mg once a week, tresiba 20 units daily and Novolog 8 units AC. not taking insulin She remains on prednisone 5 mg PO daily. Currently using CGM Freestyle Toby. Toby download shows she is using the sensor 19% of the time average glucose is 119 variability 25.7%. 94% in target range with 5% hyperglycemia and 1% hyperglycemia ? Most recent A1C: Has hypoglycemia awareness.? Treats lows according to the rule of 15's. ? Family history of T2DM in Mother, Father and Sister. ? Has eyes checked yearly, last eye exam 06/18/2022, unsure if retinopathy. ? Has neuropathy, does not see Podiatry. ? Has Nephropathy, on Losartan 25 mg PO daily. UAC 5. 06/13/2023. ? Has HLD, on Atorvastatin 80 mg PO daily.? LDL 102 06/13/2023. ? Denies CAD. ? Diet: ? Snacks frequently overnight. ? Has not had CDE. 2) Glenwood Induced Hyperparathyroidism: First noted to have high calcium in early 2018. She had labs checked 12/08/18 with Calcium 10.6 and PTH 19. It does not appear any further workup was initiated. She then had labs repeated 09/11/19 with Calcium 10.4. These were again repeated 09/22/19 with Calcium of 10.3 and Albumin of 4.2. Vitamin D was checked 09/03/19 and was 38.3. No PTH was reassessed since Nov 2018. She has been on correction Glenwood 400 mg PO daily for many years. It is unclear if any attempt has been made to wean this in the past, but she is unwilling as she is afraid of relapse. After her initial visit with me we repeated lab evaluation. 11/19/2019 Total Calcium was 10.5, Albumin 4.6, iCal 5.8, Vitamin D 27.5, PTH 43. 24 hour urine Calcium was 102. Calcium to creatinine clearance ratio was calculated at 0.011. Labs were repeated in late March 2020, and these were completely WNL, with no evidence of hypercalcemia. Labs repeated again 11/24/2020 with Calcium 9.7, PTH 32, Albumin 4.0, Vitamin D 21.9. 24 hour urine calcium was elevated to 297, and this was an adequate collection. She had a DEXA scan completed 04/08/2018 which revealed Osteopenia of the Spine and the Hip and distal forearm. She also had a diagnosis of invasive ductal carcinoma of the L breast and is s/p lumpectomy and radiation therapy, now on Letrozole therapy since 2018. She was started on Zometa and received her first dose 05/16/2021. Her most recent dose was 04/26/2022. Additionally she takes Prednisone 5 mg PO daily for her rheumatoid arthritis. We checked thyroid US to assess for parathyroid adenoma. No parathyroid adenoma was present, but there was a solitary subcentimeter thyroid nodule. Her repeat thyroid US revealed no evidence of a thyroid nodule. She was referred to Dr. Hernandez to discuss a surgical parathyroidectomy. He repeated labs at [facility] Reference labs 03/31/2021. Calcium was 10.2, Albumin 4.3, PTH 34 and Vitamin D 34. His recommendation was to continue to monitor. She does not use a Calcium supplement or a Vitamin D supplement. She was previously on HCTZ, but has not taken this in many years. Kidney stones: Denies. Osteoporosis: Has Osteopenia, currently on Letrozole therapy x 1 year with slight decline in her BMD at all points. Biotin use: Denies Family history of high calcium or kidney stones: Kidney stones in her brother. Denies a Family History of Osteoporosis. Renal imaging: Had a CT abd/pelvis 10/16/19 with no evidence of nephrolithiasis. 3) Breast Cancer: Patient with Invasive Ductal Carcinoma of the L breast s/p lumpectomy Nov 2018. This was ER +, NH + and HER 2 Negative. She was initially treated with Tamoxifen, but did not tolerate this and was switched to Letrozole in the fall of 2018. BMD reveals Osteopenia at all sites including the distal forearm. She has remained on Zometa by [facility]. DEXA: 05/06/2023 FINDINGS: AP SPINE L1-L4: Current: BMD 0.934 g/cm2, Z-score -0.4, T-score -2.1, osteopenia, 1.5% increase from previous, 7.5% decrease from baseline (<5% change is not significant). Prior: BMD 0.920 g/cm2. Baseline: BMD 1.010 g/cm2. LEFT FEMUR, NECK: Current: BMD 0.773 g/cm2, Z-score -0.4, T-score -1.9, osteopenia. Prior: BMD 0.734 g/cm2. Baseline: BMD 0.815 g/cm2. LEFT FEMUR, TOTAL: Current: BMD 0.869 g/cm2, Z-score 0.1, T-score -1.1, osteopenia, 0.7% decrease from previous, 7.6% decrease from baseline (<5% change is not significant). Prior: BMD 0.875 g/cm2. Baseline: BMD 0.940 g/cm2. LEFT FOREARM RADIUS 33%: BMD 0.675 g/cm2, Z-score -1.3, T-score -2.3, osteopenia, 1.6% decrease from baseline (<5% change is not significant). Baseline: BMD 0.686 g/cm2. Thyroid US: 12/13/2020 SIZE: Measurements of the thyroid lobes and nodules are given in sagittal, anteroposterior and transverse dimensions respectively. Right thyroid lobe: 3.9 x 1.7 x 1.4 cm, volume 4.9 mL. Previously 4.3 x 1.9 x 1.5 cm, volume 6.4 mL. Left thyroid lobe: 4.3 x 1.4 x 1.2 cm, volume 3.8 mL. Previously 4.1 x 1.4 x 1.3 cm, volume 3.7 mL. Isthmus: 0.3 cm in maximum AP dimension. Previously 0.2 cm. PARENCHYMA: The gland echotexture is homogeneous. Thyroid vascularity is normal. RIGHT THYROID LOBE: No nodules. ISTHMUS: No nodules. LEFT THYROID LOBE: No nodules. NODES: No lymphadenopathy is seen in the tissue surrounding the thyroid gland. Labs: Laboratory Tests 08/06/22 08/06/22 08/06/22 10:02 10:02 10:03 Sodium Potassium Creatinine Estimated GFR Hgb A1c (Clinic) Hemoglobin A1c % LDL Cholesterol, C alc 25-OH Vitamin D To [facility] 38.3 PTH Intact 58 Calcium (PTH Intac t) 9.1 Microalb/Creat Rat io 4.0 09/06/22 12/27/22 01/31/23 10:40 11:00 07:44 Sodium Potassium Creatinine 0.82 Estimated GFR > 60 Hgb A1c (Clinic) Hemoglobin A1c % LDL Cholesterol, C alc 66 25-OH Vitamin D To [facility] PTH Intact Calcium (PTH Intac t) Microalb/Creat Rat io 6.6 02/01/23 03/11/23 06/13/23 08:51 08:08 08:05 Sodium 139 Potassium 4.6 Creatinine 0.78 Estimated GFR > 60 Hgb A1c (Clinic) 7.8 H Hemoglobin A1c % LDL Cholesterol, C alc 25-OH Vitamin D To [facility] PTH Intact Calcium (PTH Intac t) Microalb/Creat Rat io 5.0 06/13/23 06/13/23 06/13/23 08:18 08:18 08:18 Sodium Potassium Creatinine 0.78 Estimated GFR > 60 Hgb A1c (Clinic) Hemoglobin A1c % 6.5 LDL Cholesterol, C alc 102 25-OH Vitamin D To sinai 40.8 PTH Intact Calcium (PTH Intac t) Microalb/Creat Rat io PFSH Medical History Tendonitis of ankle or foot Colitis Cough Anxiety CAD (coronary artery disease) HLD (hyperlipidemia) HTN (hypertension) T2DM (type 2 diabetes mellitus) COPD exacerbation Hyperkalemia Atherosclerotic cardiovascular disease Hospital discharge follow-up GERD (gastroesophageal reflux disease) CVA (cerebral vascular accident) Breast pain, right Rash Bloody diarrhea PAD (peripheral artery disease) Hyperlipidemia LDL goal <100 COPD (chronic obstructive pulmonary disease) Infiltrating ductal carcinoma of left breast, stage 2 Insomnia Dyslipidemia Bipolar 1 disorder, depressed Cough Restrictive airway disease Hypothyroid IDDM (insulin dependent diabetes mellitus) Vitamin D deficiency Osteoporosis Hyperparathyroidism Thyroid nodule Depression Fibromyalgia Seropositive rheumatoid arthritis Reactive airways dysfunction syndrome Allergic rhinitis Irritable bowel Anxiety Bronchial asthma Diabetes type 2, uncontrolled Hypertension Surgical History Hx of sigmoidoscopy History of bronchoscopy Hx of endoscopy H/O cardiac catheterization History of lumpectomy of left breast History of pubovaginal sling History of esophagogastroduodenoscopy (EGD) History of tubal ligation History of colonoscopy History of bunionectomy of both great toes H/O: hysterectomy Family History Mother Diabetes HTN (hypertension) Uterus cancer Malignant tumor of head Breast cancer Father Diabetes HTN (hypertension) CVD (cardiovascular disease) Heart problem Maternal Aunt Breast cancer Brother Myocardial infarction S/P CABG x 4 Family/Other FH: mental illness Family/Other Lung cancer Other Mental health disorder Social History Household Members: Family Household Members Other:: sister Housing: House Are you a primary primary care pediatrician to a significant other at home: No Do you presently have visiting nurse or other home services: Yes (sister is roll mechanic) Alcohol intake: never Patient Tobacco Use Status: Current everyday Tobacco user Tobacco use type: Cigarette Cigarette Packs Per Day: 0.5 Cigarettes Per Day: 4 Years Smoked: 12 e-Cigarette/Vaping Use: Never Used Second Hand Smoke Exposure: Yes Advance Directives Date on File: 12/22/21 service: No Current occupational status: disabled Current occupation: rt handed Cognitive needs: No Hearing needs: No Vision needs: Yes Physical Exam Vital Signs: Last Vital Signs Pulse 94 09/26/23 09:07 BP 110/78 09/26/23 09:07 BMI result Body Mass Index 21.7 Absence of Cushingoid features. Absence of acromegalic features. Neck exam reveals nl size thyroid about 15 gms. No thyroid nodules palpable. No carotid bruits present. Lungs diffuse wheezes with decreased air movement on expiration Heart S1 S2, Reg R/R. No M/R/ G. Skin exam reveals absence of vitiligo or acanthosis nigricans. Abdominal exam reveals Soft NT/ND with NA BS. No organomegaly present. Neck Other: . Extrem Other: Visual exam of foot performed. No ulcerations or open lesions. No onchomycosis, no callouses.Pulses 2 + distally Sensation intact to monofilament exam. Vibratory sensation sensed is intact with 128 Hz tuning fork Results AMB Hemoglobin A1c AMB Hemoglobin A1c 6.9 % Last Edit by Piedad Crespo on 09/26/23 09:31 Assessment & Plan Assessment & Plan (1) T2DM (type 2 diabetes mellitus): Code(s): E11.9 - Type 2 diabetes mellitus without complications Qualifiers: Diabetes mellitus complication status: with hyperglycemia Diabetes mellitus correction insulin use: with intermediate manager use Qualified Code(s): E11.65 - Type 2 diabetes mellitus with hyperglycemia; Z79.4 - FDC (current) use of insulin Plan: This 63-year-old female with history of type 2 diabetes on chronic prednisone being treated with Trulicity and basal-bolus insulin with excellent glycemic control and known macrovascular complications namely coronary artery disease and peripheral vascular disease. Plan is to continue the current management. At this point, patient returned to the care of her primary care provider and return back to endocrinology should HbA1c deteriorate. Her primary care provider can refer her to Podiatry for foot care I did tell the patient to go the emergency room regarding her shortness of breath and fever and wheezing. She states she will go right after the visit. I offered to send her by ambulance but the patient refused (2) Osteoporosis: Code(s): M81.0 - Age-related osteoporosis without current pathological fracture Qualifiers: Osteoporosis type: unspecified Presence of current pathological fracture: unspecified Qualified Code(s): M81.0 - Age-related osteoporosis without current pathological fracture Plan: Patient with Osteopenia which is due to her suspected hyperparathyroidism which I suspect is lithium induced, coupled with her Letrozole use. She has breast cancer and with continued use of Letrozole her bone density will continue to decline. She was started on Zometa by [facility] and remains on this. Will defer management to them. Her Calcium has remained WNL while on treatment. (3) Hyperparathyroidism: Code(s): E21.3 - Hyperparathyroidism, unspecified Plan: Recent calcium was normal and renal ultrasound showed the absence of nephrolithiasis and bone density showed the presence of osteopenia as noted above. No clear indication for parathyroid exploration. Patient be referred back to primary care provider and calcium levels rise to > 12.2, can return back to endocrinology for discussion parathyroid surgery (4) Diabetes mellitus: Code(s): E11.9 - Type 2 diabetes mellitus without complications Orders: Orders AMB Hemoglobin A1c Today E11.9 - Type 2 diabetes mellitus without complications Quality Reporting (2019) Adult ([facility] 138/2/) Smoking risk assessment performed?: Yes Patient Tobacco Use Status: Current everyday Tobacco user Coding Level of Care Code Est Pt Level 4 (85838) Diagnoses Type 2 diabetes mellitus with hyperglycemia, with long-term current use of insulin E11.65; Z79.4 Diabetes mellitus complication status: with hyperglycemia Diabetes mellitus correction insulin use: with correction use Osteoporosis, unspecified osteoporosis type, unspecified pathological fracture presence M81.0 Osteoporosis type: unspecified Presence of current pathological fracture: unspecified Hyperparathyroidism E21.3 Diabetes mellitus E11.9
[2023-09-26 09:25] LABS: Glucose, Whole Blood 96 mg/dL (60-115)
== END 2023-09-26 10:36 | disposition home or self-care (01) ==
PROVIDERS: PCP Internal Medicine; Visit Provider Internal Medicine Endocrinology, Diabetes & Metabolism
DX: E11.65 Type 2 diabetes mellitus with hyperglycemia (principal); Z79.4 Long term (current) use of insulin; M81.0 Age-related osteoporosis without current pathological fracture; E21.3 Hyperparathyroidism, unspecified; E11.9 Type 2 diabetes mellitus without complications
CPT/HCPCS: 99214

== ENCOUNTER → 2023-09-26 09:05 | Outpatient (BNVA) | payer MEDICARE, MEDICAID, SELFPAY ==
[2023-09-19 08:39] VITALS: BP 96/60; BP 96/66; BMI 22.5
== END ==
PROVIDERS: PCP Internal Medicine; Visit Provider Internal Medicine Endocrinology, Diabetes & Metabolism

== ENCOUNTER 2023-09-26 09:40 | Emergency (ER) | payer MEDICARE, MEDICAID, SELFPAY ==
--- NOTE | ~2023-09-26 | CT_ITS ---
EXAMINATION: CT ABDOMEN AND PELVIS WITHOUT CONTRAST CLINICAL INFORMATION: Right-sided flank pain COMPARISON: CT abdomen pelvis 02/01/2023 TECHNIQUE: Multidetector volumetric imaging was performed from the superior aspect of the liver through the pubic symphysis. Sagittal and coronal reformatted images were obtained on the technologist's workstation. This CT examination was performed using dose optimization techniques as appropriate, variously including the following: *Automated exposure control *Adjustment of mA and/or kV according to patient size (this includes techniques or standardized protocols for targeted exams where dose is matched to indication/reason for exam; i.e. extremities or head) *Use of iterative reconstruction technique DLP: 291 mGy-cm FINDINGS: LUNG BASES: The visualized lung bases are unremarkable. LIVER, GALLBLADDER, AND BILIARY TREE: The liver is normal in size, shape, and attenuation. No focal hepatic lesion or biliary ductal dilatation is present. The gallbladder is unremarkable with no evidence of radiopaque gallstones, gallbladder wall thickening, or obvious pericholecystic inflammatory changes. PANCREAS: Unremarkable. SPLEEN: Unremarkable. ADRENAL GLANDS: Unremarkable. KIDNEYS AND URETERS: The kidneys are normal in size, shape, and attenuation. There is a 2 mm nonobstructing right mid to lower calculus. No hydronephrosis, hydroureter, or additional calculi seen. No perinephric stranding. BLADDER: Unremarkable. GASTROINTESTINAL TRACT: The small and large bowel are unremarkable aside from colonic diverticula without diverticulitis. The appendix is unremarkable. ABDOMINAL WALL: No significant hernia is appreciated. Air in right abdominal wall presumably secondary to subcutaneous injection. Please correlate with history LYMPH NODES: No retroperitoneal lymphadenopathy. VASCULAR: There is calcific plaque in the abdominal aorta and iliofemoral vessels without aneurysm. PELVIC VISCERA: Uterus is not seen. An abnormal adnexal mass is not present. No free intraperitoneal fluid present. OSSEOUS STRUCTURES: Unremarkable. CT/CT abdomen pelvis wo IV con IMPRESSION: 1. A cause for the patient's right flank pain has not been found. 2. There is a 2 mm nonobstructing right renal calculus. 3. Colonic diverticulosis without diverticulitis. 4. Other incidental findings as described above. Fleischner guidelines were followed.
--- NOTE | ~2023-09-26 | XR_ITS ---
EXAMINATION: XR CHEST CLINICAL INFORMATION: Cough and low-grade temperature COMPARISON: 08/28/2023 TECHNIQUE: 2 views of the chest were obtained. FINDINGS: No significant abnormality is noted involving the heart, lungs, mediastinum, bony thorax or soft tissues. XR/XR chest 2V IMPRESSION: Unremarkable examination.
--- NOTE | 2023-09-26 09:42 | ECG_ITS ---
Test Reason : sob Blood Pressure : / mmHG Vent. Rate : 106 BPM Atrial Rate : 106 BPM P-R Int : 132 ms QRS Dur : 084 ms QT Int : 318 ms P-R-T Axes : 083 075 061 degrees QTc Int : 422 ms Sinus tachycardia Possible Left atrial enlargement Intra-ventricular conduction delay Borderline ECG When compared with ECG of 28-AUG-2023 21:45, No significant change was found Referred By: Generic ED Physician Electronically Signed By:DIPTI RUIZ MD
[2023-09-26 09:52] VITALS: BP 182/102; PULSE 110; RESP 20; TEMP 36.2; O2SAT 96; BMI 21.9
[2023-09-26 10:25] LABS: MANUAL DIFF FLAG NO
[2023-09-26 10:27] LABS: Basophils Percent Auto 0.3 % (0-2); Eosinophils Percent Auto 0.5 % (0-4); Hemoglobin 12.6 g/dl (12.0-16.0); Imm Gran Abs Auto 0.03 X10*3/uL (0.00-0.03); Imm Gran Pct Auto 0.5 % (0.0-0.4); Lymphocytes Absolute Auto 1.8 X10*3/uL (1.2-4.9); Lymphocytes Percent Auto 29.6 % (20-40); Mean Corpuscular HGB Conc 33.2 g/dl (31.0-35.0); Mean Corpuscular Hemoglobin 27.5 pg (27.0-33.0); Mean Corpuscular Volume 82.8 fL (80.0-98.0); Mean Platelet Volume 10.5 fL (9.4-12.3); Monocytes Absolute Auto 0.7 X10*3/uL (0.1-1.2); Monocytes Percent Auto 11.5 % (2-11); Neutrophils Absolute Auto 3.5 x10*3/uL (2.0-8.3); Neutrophils Percent Auto 57.6 % (45-73); Platelet Count 307 X10*3/uL (160-400); Red Blood Count 4.59 X10*6/uL (4.20-5.50); Red Cell Distribution Width 13.7 % (11.0-16.0)
[2023-09-26 10:28] LABS: VBG Base Excess 3.9 mmol/L; VBG HCO3 24 mmol/L (22-26); VBG pCO2 27 mmHg; VBG pH 7.56 (7.32-7.43); VBG pO2 101 mmHg
[2023-09-26 10:29] LABS: Venous Blood Gas Refer to POC result
[2023-09-26] MEDS: Albuterol Sulfate 5 MG, Albuterol/Iprat 2.5/0.5MG 3 ML 3 ML INHALE (10:32)
[2023-09-26 10:33] VITALS: PULSE 11; RESP 26; O2SAT 98
[2023-09-26] MEDS: Benzonatate 100 MG CAPSULE 200 MG PO (10:39)
[2023-09-26] MEDS: Acetaminophen 325 MG TABLET 975 MG PO (10:39)
[2023-09-26] MEDS: Lidocaine HCl Viscous 2 % 15 ML SOLUTION 10 ML MUCOUS MEM (10:40)
[2023-09-26] MEDS: Magnesium Hydrox/Alum Hydrox 30 ML ORAL.SUSP PO (10:40)
[2023-09-26 10:41] LABS: Anion Gap 13 (12-20); Blood Urea Nitrogen 9 mg/dL (9-16); Calcium 9.1 mg/dL (8.4-10.2); Carbon Dioxide 22 mmol/L (22-29); Chloride 106 mmol/L (96-108); Creatinine Clr Calc Pharmacy 44.8; Estimated Glomerular Filt Rate > 60; Glucose Random 80 mg/dL (60-115); Potassium 4.2 mmol/L (3.3-5.1); Sodium 137 mmol/L (135-145)
[2023-09-26 10:50] LABS: Troponin-I High Sensitivity < 2.7 ng/L (<3.5-17.0)
[2023-09-26 11:07] LABS: Influenza A PCR NEGATIVE (Negative); Influenza B PCR NEGATIVE (Negative); Resp Syncy Virus RNA Qual PCR NEGATIVE (Negative); SARS COV2 PCR INHOUSE NEGATIVE (Negative)
[2023-09-26 11:23] VITALS: BP 131/80; PULSE 130; RESP 14; O2SAT 95
[2023-09-26 11:45] LABS: Appearance Urine Clear; Color Urine Yellow; Glucose Urine UA Negative (Negative); Leukocyte Esterase Urine Trace (Negative); Nitrite Urine Negative (Negative); PH 6.5 (5.0-9.0); UMIC TRIGGER UACC YES; Urine Blood Negative (Negative); Urine Ketones Negative (Negative); Urine Protein Negative (Neg-Trace)
[2023-09-26 11:47] LABS: Bacteria Urine None Seen (None Seen); Hyaline Casts Urine 0-2 /LPF (0-2); RBC Urine 0-2 /HPF (0-2); Squamous Epithelial Cell Urine 0-2 /HPF (0-2); WBC Urine 0-5 /HPF (0-5)
[2023-09-26 12:03] VITALS: PULSE 119; RESP 18; O2SAT 97
[2023-09-26] MEDS: levalbuterol HCL 1.25 MG/3 ML VIAL.NEB 3.75 MG INHALE (12:04)
--- NOTE | 2023-09-26 13:52 | ED_ITS ---
HPI - General Adult General Chief complaint: General Medical Stated complaint: Shortness of breath, chest pain Time Seen by Provider: 09/26/23 10:01 Source: patient Mode of arrival: ambulatory History of Present Illness HPI narrative: 63-year-old female with presentation for increased shortness of breath over the past couple of days also has other complaints such as epigastric discomfort and reports 3 days of diarrhea. Related Data Home Medications Medication Instructions Recorded Confirmed [id number] 1 tab PO Q6H PRN pain 06/17/23 09/23/23 50 mg-325 mg-40 mg tablet codeine 10 mg-guaifenesin 100 mg/5 10 ml PO Q4-6H PRN cough 06/17/23 09/23/23 mL oral liquid albuterol sulfate 90 mcg/actuation inhalation 08/23/23 09/23/23 aerosol inhaler Previous Rx's Medication Instructions Recorded lancets 28 gauge (FreeStyle #100 ea 06/07/22 Lancets) pen needle, diabetic 31 gauge x #200 ea 06/07/2204/02 (Comfort EZ Pen [place]) Novolog FlexPen U-100 Insulin 100 2 - 10 unit subcut TIDAC 30 days 08/28/22 unit/mL (3 mL) subcutaneous #15 mL (insulin aspart U-100) budesonide 0.5 mg/2 mL suspension 0.25 mg inhalation BID ASTHMA/COPD 01/04/23 for nebulization 30 days #60 mL walker #1 ea 02/08/23 insulin degludec 100 unit/mL (3 20 unit (0.2 mL) subcut BEDTIME 90 02/11/23 mL) subcutaneous pen (Tresiba days #18 mL FlexTouch U-100 insulin) letrozole 2.5 mg tablet 2.5 mg PO DAILY #90 tabs 02/12/23 dulaglutide 1.5 mg/0.5 mL 1.5 mg (0.5 mL) subcut WE@0900 90 04/22/23 subcutaneous pen injector days #6.5 mL (Trulicity) ipratropium 0.5 mg-albuterol 3 mg 3 ml inhalation Q6H #180 mL 05/17/23 (2.5 mg base)/3 mL nebulization soln trazodone 100 mg tablet 100 mg PO BEDTIME 90 days #90 tabs 06/27/23 aspirin 81 mg tablet,delayed 81 mg PO DAILY 90 days #90 tabs 06/30/23 release ipratropium bromide 0.02 % 2.5 ml inhalation Q6H PRN 07/03/23 solution for inhalation shortness of breath or wheezing #150 mL prednisone 5 mg tablet 5 mg PO DAILY for asthma 30 days 07/03/23 #30 tabs ondansetron 4 mg disintegrating 4 mg PO Q6H PRN nausea and 07/04/23 tablet vomiting #14 tabs famotidine 20 mg tablet 20 mg PO BEDTIME 90 days #90 tabs 08/09/23 pantoprazole 40 mg tablet,delayed 40 mg PO BID 90 days #180 tabs 08/09/23 release pregabalin 200 mg capsule (Lyrica) 200 mg PO BID #60 caps 08/14/23 levalbuterol tartrate 45 2 puff inhalation Q4-6H PRN 08/20/23 mcg/actuation aerosol inhaler shortness of breath 30 days #15 grams morphine 15 mg immediate release 15 mg PO Q8H PRN pain #15 tabs 08/29/23 tablet blood sugar diagnostic (FreeStyle #100 ea 08/30/23 Lite Strips) tamsulosin 0.4 mg capsule (Flomax) 0.4 mg PO DAILY #14 caps 08/30/23 lubiprostone 8 mcg capsule 16 mcg (2 x 8 mcg) PO BID 90 days 09/19/23 (Amitiza) #360 caps varenicline 0.5 mg (11)-1 mg (42) See Rx Instructions PO PER PKG DIR 09/23/23 tablets in a dose pack (Better Living Yogatix #53 ea Starting Month Box) prednisone 20 mg tablet 20 mg PO DAILY #4 tabs 09/26/23 Allergies Allergy/AdvReac Type Severity Reaction Status Date / Time dog dander [DOGS] Allergy Intermediate Respiratory Verified 09/26/23 09:24 distress shellfish derived Allergy Intermediate Hives Verified 09/26/23 09:24 methylprednisolone Allergy Rash Verified 09/26/23 09:24 etanercept [From Enbrel] AdvReac Intermediate Facial Verified 09/26/23 09:24 Swelling ibuprofen [Ibuprofen] AdvReac Intermediate STOMACH Verified 09/26/23 09:24 UPSET, abdominal pain, nausea and vomiting metformin AdvReac Intermediate Diarrhea Verified 09/26/23 09:24 metronidazole [From FLAGYL] AdvReac Intermediate Diarrhea Verified 09/26/23 09:24 prednisone AdvReac Intermediate hallucinations, Verified 09/26/23 09:24 higher than 20 Review of Systems 2 Review of Systems: Pertinent positives and negatives as stated in HPI [facility], [facility] Past Medical History Source: nursing notes reviewed Medical History Tendonitis of ankle or foot Colitis Cough Anxiety CAD (coronary artery disease) HLD (hyperlipidemia) HTN (hypertension) T2DM (type 2 diabetes mellitus) COPD exacerbation Hyperkalemia Atherosclerotic cardiovascular disease Hospital discharge follow-up GERD (gastroesophageal reflux disease) CVA (cerebral vascular accident) Breast pain, right Rash Bloody diarrhea PAD (peripheral artery disease) Hyperlipidemia LDL goal <100 COPD (chronic obstructive pulmonary disease) Infiltrating ductal carcinoma of left breast, stage 2 Insomnia Dyslipidemia Bipolar 1 disorder, depressed Cough Restrictive airway disease Hypothyroid IDDM (insulin dependent diabetes mellitus) Vitamin D deficiency Osteoporosis Hyperparathyroidism Thyroid nodule Depression Fibromyalgia Seropositive rheumatoid arthritis Reactive airways dysfunction syndrome Allergic rhinitis Irritable bowel Anxiety Bronchial asthma Diabetes type 2, uncontrolled Hypertension Surgical History Hx of sigmoidoscopy History of bronchoscopy Hx of endoscopy H/O cardiac catheterization History of lumpectomy of left breast History of pubovaginal sling History of esophagogastroduodenoscopy (EGD) History of tubal ligation History of colonoscopy History of bunionectomy of both great toes H/O: hysterectomy Family History Family History Mother Diabetes HTN (hypertension) Uterus cancer Malignant tumor of head Breast cancer Father Diabetes HTN (hypertension) CVD (cardiovascular disease) Heart problem Maternal Aunt Breast cancer Brother Myocardial infarction S/P CABG x 4 Family/Other FH: mental illness Family/Other Lung cancer Other Mental health disorder Social History Social History Household Members: Family Household Members Other:: sister Housing: House Are you a primary health care marketing specialist to a significant other at home: No Do you presently have visiting nurse or other home services: Yes (sister is pharmacist's aide) Unable to assess alcohol history related to: Unknown Alcohol intake: never Patient Tobacco Use Status: Current everyday Tobacco user Tobacco use type: Cigarette Cigarette Packs Per Day: 0.5 Cigarettes Per Day: 4 Years Smoked: 12 Smoked in Last 30 Days: No e-Cigarette/Vaping Use: Never Used Second Hand Smoke Exposure: Yes Use of substances other than those prescribed or required for medical reasons: Unknown Advance Directives: Yes Advance Directives on File: Yes Advance Directives Date on File: 12/22/21 Patient : No service: No Current occupational status: disabled Current occupation: rt handed Cognitive needs: No Hearing needs: No Vision needs: Yes Physical Exam ED Vital Signs: Vital Signs - 24 hr 09/26/23 09:52 09/26/23 10:33 09/26/23 11:23 Temperature 97.2 F Pulse Rate 110 H 11 L 130 H Respiratory Rate 20 26 H 14 Blood Pressure 182/102 H 131/80 Pulse Oximetry 96 95 Oxygen Delivery Method Room Air Room Air 09/26/23 12:03 Temperature Pulse Rate 119 H Respiratory Rate 18 Blood Pressure Pulse Oximetry Oxygen Delivery Method BMI result Body Mass Index 21.9 VITAL SIGNS: Reviewed. GENERAL: Well developed, well nourished, in no acute distress. HEAD: Normocephalic/atraumatic EYES: PERRLA, EOMI EARS: Ext canals without abnormality NOSE: Nares patent bilateral OROPHARYNX: no oral lesions noted, posterior pharynx clear NECK: Supple, no adenopathy LUNGS: Diminished breath sounds bilaterally without wheeze or rhonchi, tachypnea is present. SpO2<96> CARDIOVASCULAR: Regular rate and rhythm without noted murmurs, no JVD or lower extremity edema. ABDOMEN: Soft, epigastric discomfort, non-distended with bowel sounds. MUSCULOSKELETAL: No tenderness, deformities, or effusions noted on gross inspection. EXTREMITIES: No cyanosis, clubbing or edema. SKIN: Inspection of the skin reveals no rashes NEUROLOGIC: Alert and oriented x 4. Strength and sensation to light touch were grossly intact x 4. Medications Administered Discontinued Medications Generic Name Dose Route Start Last Admin Trade Name Freq PRN Reason Stop Dose Admin Acetaminophen 975 mg 09/26/23 10:33 09/26/23 10:39 Acetaminophen 325 Mg Tablet PO 09/26/23 10:34 975 mg ONCE ONE Administration Al Hydroxide/Mg Hydroxide 30 ml 09/26/23 10:33 09/26/23 10:40 Magnesium Hydrox/Alum Hydrox 30 Ml Oral.Susp PO 09/26/23 10:34 30 ml ONCE ONE Administration Benzonatate 200 mg 09/26/23 10:35 09/26/23 10:39 Benzonatate 100 Mg Capsule PO 09/26/23 10:36 200 mg ONCE ONE Administration Albuterol Sulfate 5 mg/ 0 mg 09/26/23 10:26 09/26/23 10:32 Albuterol/Ipratropium 3 ml INHALE 09/26/23 10:27 7.5 each ONCE ONE Administration Levalbuterol HCl 3.75 mg 09/26/23 11:59 09/26/23 12:04 Levalbuterol Hcl 1.25 Mg/3 Ml Vial.Neb INHALE 09/26/23 12:00 3.75 mg ONCE ONE Administration Lidocaine HCl 10 ml 09/26/23 10:33 09/26/23 10:40 Lidocaine Hcl Viscous 2 % 15 Ml Solution MUCOUS MEM 09/26/23 10:34 10 ml ONCE ONE Administration Medical Decision Making Medical Decision Making MDM Narrative: 63-year-old female with history and clinical presentation, DDX: Viral illness, COPD, pneumonia, gastritis, renal colic, UTI. INTERVENTION: E.d. bronch protocol started, 60 mg of Solu-Medrol, patient received nebulized treatments, cough suppressant as well as a GI cocktail and combination analgesics. I reviewed all investigations hematologic indices are grossly within normal limits without leukocytosis or left shift and no anemia or thrombocytopenia. VBG consistent with compensated COPD is no evidence to suggest respiratory acidosis and no evidence of hypercapnia. Chemistry indices grossly within normal limits as there is no evidence of ALONA and electrolytes are within normal limits. High sensitivity troponin is undetectable. Urinalysis is negative UTI or hematuria. Viral testing negative for influenza/RSV/COVID. Chest x-ray negative for infiltrate and otherwise my interpretation is in agreement with radiology's impression. CT scan negative for renal colic and no evidence of colitis. On re-evaluation patient reports that she is feeling much improved and is discharged home on a short course increased steroids. Differential Diagnosis Differential Diagnoses: The differential diagnosis associated with the presentation includes Please see the discussion above Admission/Observation Consideration of admission/observation: Escalation of care including admission/observation considered Please see the discussion above Lab Data MDM Lab Attestation statement: I reviewed the patient's lab results. Please see the discussion above 09/26/23 10:19 09/26/23 10:19 Labs: Lab Results 09/26/23 09/26/23 09/26/23 Range/Units 10:19 10:22 10:24 WBC 6.0 (4.8-10.8) X10*3/uL RBC 4.59 (4.20-5.50) X10*6/uL Hgb 12.6 (12.0-16.0) g/dl Hct 38.0 (37.0-47.0) % MCV 82.8 (80.0-98.0) fL MCH 27.5 (27.0-33.0) pg MCHC 33.2 (31.0-35.0) g/dl RDW 13.7 (11.0-16.0) % Plt Count 307 (160-400) X10*3/uL MPV 10.5 (9.4-12.3) fL Immature Gran % (Auto) 0.5 H (0.0-0.4) % Neut % (Auto) 57.6 (45-73) % Lymph % (Auto) 29.6 (20-40) % [place] % (Auto) 11.5 H (2-11) % Eos % (Auto) 0.5 (0-4) % Baso % (Auto) 0.3 (0-2) % Lymph # (Auto) 1.8 (1.2-4.9) X10*3/uL [place] # (Auto) 0.7 (0.1-1.2) X10*3/uL Eos # (Auto) 0.0 (0.0-0.4) X10*3/uL Baso # (Auto) 0.0 (0.0-0.2) X10*3/uL Abs Immat Gran (auto) 0.03 (0.00-0.03) X10*3/uL Absolute Neuts (auto) 3.5 (2.0-8.3) x10*3/uL Absolute Nucleated RBC 0.000 (0.0-0.012) X10*3/uL Nucleated RBC % (auto) 0.0 (0.0-0.2) /100WBC VBG pH 7.56 H (7.32-7.43) VBG pCO2 27 mmHg VBG pO2 101 mmHg VBG HCO3 24 (22-26) mmol/L VBG O2 Saturation 99.0 % VBG Base Excess 3.9 mmol/L Sodium 137 (135-145) mmol/L Potassium 4.2 (3.3-5.1) mmol/L Chloride 106 (96-108) mmol/L Carbon Dioxide 22 (22-29) mmol/L Anion Gap 13 (12-20) BUN 9 (9-16) mg/dL Creatinine 0.85 (0.5-1.4) mg/dL Estim Creat Clear Calc 44.8 Estimated GFR > 60 Random Glucose 80 (60-115) mg/dL Calcium 9.1 D (8.4-10.2) mg/dL Troponin I High Sens < 2.7 (<3.5-17.0) ng/L Urine Color Urine Appearance Urine pH (5.0-9.0) Ur Specific [place] (1.005-1.025) Urine Protein (Neg-Trace) mg/dL Urine Glucose (UA) (Negative) mg/dL Urine Ketones (Negative) mg/dL Urine Blood (Negative) Urine Nitrite (Negative) Ur Leukocyte Esterase (Negative) Urine RBC (0-2) /HPF Urine WBC (0-5) /HPF Ur Squamous Epith Cells (0-2) /HPF Urine Bacteria (None Seen) Hyaline Casts (0-2) /LPF Influenza Type A (PCR) NEGATIVE (Negative) Influenza Type B (PCR) NEGATIVE (Negative) RSV RNA Qual (PCR) NEGATIVE (Negative) SARS-CoV-2 RNA (RT-PCR) NEGATIVE (Negative) 09/26/23 Range/Units 11:39 WBC (4.8-10.8) X10*3/uL RBC (4.20-5.50) X10*6/uL Hgb (12.0-16.0) g/dl Hct (37.0-47.0) % MCV (80.0-98.0) fL MCH (27.0-33.0) pg MCHC (31.0-35.0) g/dl RDW (11.0-16.0) % Plt Count (160-400) X10*3/uL MPV (9.4-12.3) fL Immature Gran % (Auto) (0.0-0.4) % Neut % (Auto) (45-73) % Lymph % (Auto) (20-40) % [place] % (Auto) (2-11) % Eos % (Auto) (0-4) % Baso % (Auto) (0-2) % Lymph # (Auto) (1.2-4.9) X10*3/uL [place] # (Auto) (0.1-1.2) X10*3/uL Eos # (Auto) (0.0-0.4) X10*3/uL Baso # (Auto) (0.0-0.2) X10*3/uL Abs Immat Gran (auto) (0.00-0.03) X10*3/uL Absolute Neuts (auto) (2.0-8.3) x10*3/uL Absolute Nucleated RBC (0.0-0.012) X10*3/uL Nucleated RBC % (auto) (0.0-0.2) /100WBC VBG pH (7.32-7.43) VBG pCO2 mmHg VBG pO2 mmHg VBG HCO3 (22-26) mmol/L VBG O2 Saturation % VBG Base Excess mmol/L Sodium (135-145) mmol/L Potassium (3.3-5.1) mmol/L Chloride (96-108) mmol/L Carbon Dioxide (22-29) mmol/L Anion Gap (12-20) BUN (9-16) mg/dL Creatinine (0.5-1.4) mg/dL Estim Creat Clear Calc Estimated GFR Random Glucose (60-115) mg/dL Calcium (8.4-10.2) mg/dL Troponin I High Sens (<3.5-17.0) ng/L Urine Color Yellow Urine Appearance Clear Urine pH 6.5 (5.0-9.0) Ur Specific [place] 1.020 (1.005-1.025) Urine Protein Negative (Neg-Trace) mg/dL Urine Glucose (UA) Negative (Negative) mg/dL Urine Ketones Negative (Negative) mg/dL Urine Blood Negative (Negative) Urine Nitrite Negative (Negative) Ur Leukocyte Esterase Trace H (Negative) Urine RBC 0-2 (0-2) /HPF Urine WBC 0-5 (0-5) /HPF Ur Squamous Epith Cells 0-2 (0-2) /HPF Urine Bacteria None Seen (None Seen) Hyaline Casts 0-2 (0-2) /LPF Influenza Type A (PCR) (Negative) Influenza Type B (PCR) (Negative) RSV RNA Qual (PCR) (Negative) SARS-CoV-2 RNA (RT-PCR) (Negative) Independent Interpretation I performed an independent interpretation of an: EKG Interpretation: Sinus tachycardia, HR-106, no STEMI, NM/QRS/QTC is within normal limits. Radiology Impression Discussion of test interpretation with radiology: I have reviewed the radiologist's reading. Radiologist Impression: Please see the discussion above External Record Review External record reviewed: Outpatient record, Prior outpatient labs and Prior outpatient radiology Chronic Conditions Patient?s care impacted by: Diabetes and Other COPD Critical Care Time Critical Care Time Critical Care Time: Yes Total Critical Care Time: 45 Attestation: I personally attest to this time spent taking care of the patient. Discharge Plan Discharge Clinical Impression: COPD exacerbation Patient Disposition: Home, Self-Care Instructions: COPD (Chronic Obstructive Pulmonary Disease) (ED) Additional Instructions: 1. Resume all home medications as prescribed. 2. Your being discharged with a short course of prednisone 20 mg for the next 4 days. 3. Please follow-up with your primary care doctor in the next 1-2 days. Return to the ER for any worsening symptoms. Prescriptions: New prednisone 20 mg tablet 20 mg PO DAILY Qty: 4 0RF No Action (DME) pen needle, diabetic [Comfort EZ Pen [place]] 31 gauge x 5/16 needle See Rx Instructions .ROUTE .MEDSUPPLY Qty: 200 11RF Rx Instructions: Use 1 pen needle 6 times a day (DME) lancets [FreeStyle Lancets] 28 gauge misc See Rx Instructions .Route Qty: 100 3RF Rx Instructions: Use 1 lancet once a day insulin aspart U-100 [Novolog FlexPen U-100 Insulin] 100 unit/mL (3 mL) insulin pen 2 - 10 unit subcut TIDAC 30 Days Qty: 15 11RF Protocol: Insulin Correction Scale Less than or equal to 110 ---- Give (units): 0 111 to 150 Give (units): 0 151 to 200 Give (units): 2 201 to 250 Give (units): 4 251 to 300 Give (units): 6 301 to 350 Give (units): 8 Greater than 350 Give (units): 10 Call MD if Blood Glucose > : 350 Rx Instructions: Via sliding scale budesonide 0.5 mg/2 mL suspension for nebulization 0.25 mg inhalation BID 30 Days Qty: 60 3RF (DME) fadumo Reedc See Rx Instructions .Route Qty: 1 0RF Rx Instructions: with seat insulin degludec [Tresiba FlexTouch U-100] 100 unit/mL (3 mL) insulin pen 20 unit subcut BEDTIME 90 Days Qty: 18 1RF letrozole 2.5 mg Tablet 2.5 mg PO DAILY Qty: 90 3RF Trulicity 1.5 mg/0.5 mL pen injector 1.5 mg subcut WE@0900 90 Days Qty: 6.5 2RF ipratropium-albuterol 0.5 mg-3 mg(2.5 mg base)/3 mL solution for nebulization 3 ml inhalation Q6H Qty: 180 0RF trazodone 100 mg tablet 100 mg PO BEDTIME 90 Days Qty: 90 0RF aspirin 81 mg tablet,delayed release (DR/EC) 81 mg PO DAILY 90 Days Qty: 90 1RF ipratropium bromide 0.02 % solution 2.5 ml inhalation Q6H PRN (Reason: shortness of breath or wheezing) Qty: 150 3RF prednisone 5 mg tablet 5 mg PO DAILY 30 Days Qty: 30 3RF pregabalin [Lyrica] 200 mg capsule 200 mg PO BID Qty: 60 5RF levalbuterol tartrate 45 mcg/actuation HFA aerosol inhaler 2 puff inhalation Q4-6H PRN (Reason: shortness of breath) 30 Days Qty: 15 3RF ondansetron 4 mg tablet,disintegrating 4 mg PO Q6H PRN (Reason: nausea and vomiting) Qty: 14 0RF morphine 15 mg tablet 15 mg PO Q8H PRN (Reason: pain) Qty: 15 0RF Rx Instructions: Partial Fill upon patient request. famotidine 20 mg tablet 20 mg PO BEDTIME 90 Days Qty: 90 1RF pantoprazole 40 mg tablet,delayed release (DR/EC) 40 mg PO BID 90 Days Qty: 180 0RF (DME) FreeStyle Lite Strips Strip MISCELLANEOUS DAILY Qty: 100 1RF Rx Instructions: Use 1 test strip three times a day tamsulosin [Flomax] 0.4 mg capsule 0.4 mg PO DAILY Qty: 14 0RF albuterol sulfate 90 mcg/actuation HFA aerosol inhaler inhalation codeine-guaifenesin 10-100 mg/5 mL liquid 10 ml PO Q4-6H PRN (Reason: cough) aezsxeyext-zzaslezzpdsjd-[id number] 50-325-40 mg tablet 1 tab PO Q6H PRN (Reason: pain) varenicline [Chantix Starting Month Box] 0.5 mg (11)- 1 mg (42) tablets,dose pack See Rx Instructions PO PER PKG DIR Qty: 53 0RF Rx Instructions: PO PER PKG DIR lubiprostone [Amitiza] 8 mcg capsule 16 mcg PO BID 90 Days Qty: 360 1RF Referrals: Adela Gipson MD [Primary Care Provider] -
[2023-09-26] MEDS: methylPREDNISolone Sod Succ 125 MG/2 ML VIAL 60 MG IVPUSH (14:29)
== END 2023-09-26 14:48 | disposition home or self-care (01) ==
PROVIDERS: Emergency Provider Student in an Organized Health Care Education/Training Program; PCP Internal Medicine
DX: J44.1 Chronic obstructive pulmonary disease with (acute) exacerbation (principal); R06.02 Shortness of breath; R10.13 Epigastric pain; E11.9 Type 2 diabetes mellitus without complications; I10 Essential (primary) hypertension; E78.5 Hyperlipidemia, unspecified; F17.210 Nicotine dependence, cigarettes, uncomplicated; Z86.73 Personal history of transient ischemic attack (TIA), and cerebral infarction without residual deficits; Z79.4 Long term (current) use of insulin; Z79.899 Other long term (current) drug therapy; Z79.82 Long term (current) use of aspirin; Z20.822 Contact with and (suspected) exposure to COVID-19; Z20.828 Contact with and (suspected) exposure to other viral communicable diseases
CPT/HCPCS: 0241U; 36415; 71046; 74176; 80048; 81001; 82803; 82947; 83036; 84484; 85025; 93005; 94640; 96374; 99212; 99285; J2930

== ENCOUNTER 2023-09-27 17:05 | Observation (INO) | payer MEDICARE, MEDICAID, SELFPAY ==
[2023-09-27] VITALS (8 sets, daily range): BP systolic 101–158; BP diastolic 57–96; PULSE 111–131; RESP 12–32; TEMP 36.7–37.3; O2SAT 93–97; BMI 21.9
--- NOTE | ~2023-09-27 | XR_ITS ---
EXAMINATION: XR CHEST CLINICAL INFORMATION: Cough COMPARISON: Previous chest x-ray most recent 09/26/2023 TECHNIQUE: Frontal view of the chest was obtained. FINDINGS: No significant abnormality is noted involving the heart, lungs, mediastinum, bony thorax or soft tissues. XR/XR chest 1V IMPRESSION: Unremarkable examination.
--- NOTE | 2023-09-27 17:12 | ED.SOB ---
HPI - SOB/Dyspnea General Chief Complaint: Dyspnea Stated Complaint: Diff breathing Time Seen by Provider: 09/27/23 17:21 Source: patient and old records reviewed Mode of arrival: ambulatory Limitations: no limitations History of Present Illness HPI Narrative: 63 yo female with PMH of asthma and ICU statys, COPD, GERD, anxiety, kidney stones, HTN, HLD, DM, NSTEMI, RA, was seen yesterday had normal CT of abdomen, CXR,labs and viral panel. She was sent home on oral prednisone she states due to allergy and side effects she can only take 20mg a day which she did. She woke up late this AM and since then she has been having worsening breathing and wheezing and does not feel well. She has chest tightness as well. MD elicited complaint: asthma attack Pertinent past history: COPD, asthma and diabetes Onset (ago): day(s) (2) Context: smoke/fume exposure Timing: progressively worsening Severity: similar to previous episodes Exacerbating factors: exertion and coughing Relieving factors: bronchodilators Known history of: COPD, asthma and diabetes Associated symptoms: chest pain, cough and wheezing Treatment prior to arrival: bronchodilator and other (took oral steroids prior to DC) Related Data Home Medications Medication Instructions Recorded Confirmed [id number] 1 tab PO Q6H PRN pain 06/17/23 09/23/23 50 mg-325 mg-40 mg tablet codeine 10 mg-guaifenesin 100 mg/5 10 ml PO Q4-6H PRN cough 06/17/23 09/23/23 mL oral liquid albuterol sulfate 90 mcg/actuation inhalation 08/23/23 09/23/23 aerosol inhaler Previous Rx's Medication Instructions Recorded lancets 28 gauge (FreeStyle #100 ea 06/07/22 Lancets) pen needle, diabetic 31 gauge x #200 ea 06/07/22 5/16 (Comfort EZ Pen [place]) Novolog FlexPen U-100 Insulin 100 2 - 10 unit subcut TIDAC 30 days 08/28/22 unit/mL (3 mL) subcutaneous #15 mL (insulin aspart U-100) budesonide 0.5 mg/2 mL suspension 0.25 mg inhalation BID ASTHMA/COPD 01/04/23 for nebulization 30 days #60 mL walker #1 ea 02/08/23 insulin degludec 100 unit/mL (3 20 unit (0.2 mL) subcut BEDTIME 90 02/11/23 mL) subcutaneous pen (Tresiba days #18 mL FlexTouch U-100 insulin) letrozole 2.5 mg tablet 2.5 mg PO DAILY #90 tabs 02/12/23 dulaglutide 1.5 mg/0.5 mL 1.5 mg (0.5 mL) subcut WE@0900 90 04/22/23 subcutaneous pen injector days #6.5 mL (Trulicity) ipratropium 0.5 mg-albuterol 3 mg 3 ml inhalation Q6H #180 mL 05/17/23 (2.5 mg base)/3 mL nebulization soln aspirin 81 mg tablet,delayed 81 mg PO DAILY 90 days #90 tabs 06/30/23 release ipratropium bromide 0.02 % 2.5 ml inhalation Q6H PRN 07/03/23 solution for inhalation shortness of breath or wheezing #150 mL prednisone 5 mg tablet 5 mg PO DAILY for asthma 30 days 07/03/23 #30 tabs ondansetron 4 mg disintegrating 4 mg PO Q6H PRN nausea and 07/04/23 tablet vomiting #14 tabs famotidine 20 mg tablet 20 mg PO BEDTIME 90 days #90 tabs 08/09/23 pantoprazole 40 mg tablet,delayed 40 mg PO BID 90 days #180 tabs 08/09/23 release pregabalin 200 mg capsule (Lyrica) 200 mg PO BID #60 caps 08/14/23 levalbuterol tartrate 45 2 puff inhalation Q4-6H PRN 08/20/23 mcg/actuation aerosol inhaler shortness of breath 30 days #15 grams morphine 15 mg immediate release 15 mg PO Q8H PRN pain #15 tabs 08/29/23 tablet blood sugar diagnostic (FreeStyle #100 ea 08/30/23 Lite Strips) tamsulosin 0.4 mg capsule (Flomax) 0.4 mg PO DAILY #14 caps 08/30/23 lubiprostone 8 mcg capsule 16 mcg (2 x 8 mcg) PO BID 90 days 09/19/23 (Amitiza) #360 caps varenicline 0.5 mg (11)-1 mg (42) See Rx Instructions PO PER PKG DIR 09/23/23 tablets in a dose pack (Chantix #53 ea Starting Month Box) prednisone 20 mg tablet 20 mg PO DAILY #4 tabs 09/26/23 trazodone 100 mg tablet 100 mg PO BEDTIME 90 days #90 tabs 09/27/23 Allergies Allergy/AdvReac Type Severity Reaction Status Date / Time dog dander [DOGS] Allergy Intermediate Respiratory Verified 09/26/23 09:24 distress shellfish derived Allergy Intermediate Hives Verified 09/26/23 09:24 methylprednisolone Allergy Rash Verified 09/26/23 09:24 etanercept [From Enbrel] AdvReac Intermediate Facial Verified 09/26/23 09:24 Swelling ibuprofen [Ibuprofen] AdvReac Intermediate STOMACH Verified 09/26/23 09:24 UPSET, abdominal pain, nausea and vomiting metformin AdvReac Intermediate Diarrhea Verified 09/26/23 09:24 metronidazole [From FLAGYL] AdvReac Intermediate Diarrhea Verified 09/26/23 09:24 prednisone AdvReac Intermediate hallucinations, Verified 09/26/23 09:24 higher than 20 Review of Systems Review of Systems: Constitutional : No Fever, No Chills ENT/Mouth : No Hoarseness, No sore throat, No Rhinorrhea Eyes: No Redness, No Discharge, No Vision Changes Cardiovascular : No Chest Pain, positive SOB, positive Dyspnea on Exertion, No Edema Respiratory : positive Cough, No Sputum, positive Wheezing, Gastrointestinal : No Nausea, No Vomiting, No Diarrhea, No abdominal Pain Genitourinary : No Dysuria, No Hematuria Musculoskeletal : No joint pain, No Myalgias Skin : No rash Neuro : No Weakness, No Numbness, No Headache Psych : No anxiety, depression Heme/Lymph: No Bruising, No Bleeding Endocrine : No Polyuria, No Polydipsia All other systems reviewed and are negative REPLACED BY [facility] Past Medical History Attestation statement: The following information was validated with the patient. Medical History Tendonitis of ankle or foot Colitis Cough Anxiety CAD (coronary artery disease) HLD (hyperlipidemia) HTN (hypertension) T2DM (type 2 diabetes mellitus) COPD exacerbation Hyperkalemia Atherosclerotic cardiovascular disease Hospital discharge follow-up GERD (gastroesophageal reflux disease) CVA (cerebral vascular accident) Breast pain, right Rash Bloody diarrhea PAD (peripheral artery disease) Hyperlipidemia LDL goal <100 COPD (chronic obstructive pulmonary disease) Infiltrating ductal carcinoma of left breast, stage 2 Insomnia Dyslipidemia Bipolar 1 disorder, depressed Cough Restrictive airway disease Hypothyroid IDDM (insulin dependent diabetes mellitus) Vitamin D deficiency Osteoporosis Hyperparathyroidism Thyroid nodule Depression Fibromyalgia Seropositive rheumatoid arthritis Reactive airways dysfunction syndrome Allergic rhinitis Irritable bowel Anxiety Bronchial asthma Diabetes type 2, uncontrolled Hypertension Surgical History Hx of sigmoidoscopy History of bronchoscopy Hx of endoscopy H/O cardiac catheterization History of lumpectomy of left breast History of pubovaginal sling History of esophagogastroduodenoscopy (EGD) History of tubal ligation History of colonoscopy History of bunionectomy of both great toes H/O: hysterectomy Family History Family History Mother Diabetes HTN (hypertension) Uterus cancer Malignant tumor of head Breast cancer Father Diabetes HTN (hypertension) CVD (cardiovascular disease) Heart problem Maternal Aunt Breast cancer Brother Myocardial infarction S/P CABG x 4 Family/Other FH: mental illness Family/Other Lung cancer Other Mental health disorder Social History Social History Household Members: Family Household Members Other:: sister Housing: House Are you a primary foster care worker to a significant other at home: No Do you presently have visiting nurse or other home services: Yes (sister is dye house helper) Unable to assess alcohol history related to: Unknown Alcohol intake: never Patient Tobacco Use Status: Current everyday Tobacco user Tobacco use type: Cigarette Cigarette Packs Per Day: 0.5 Cigarettes Per Day: 4 Years Smoked: 12 Smoked in Last 30 Days: Yes e-Cigarette/Vaping Use: Never Used Second Hand Smoke Exposure: Yes Use of substances other than those prescribed or required for medical reasons: Yes Substance Use Type: Marijuana Substance Use Frequency: Occasionally Advance Directives: Yes Advance Directives on File: Yes Advance Directives Date on File: 12/22/21 service: No Current occupational status: disabled Current occupation: rt handed Cognitive needs: No Hearing needs: No Vision needs: Yes Physical Exam Vital Signs: Vital Signs: Last Vital Signs Temp 99.1 F 09/27/23 17:13 Pulse 131 H 09/27/23 19:01 Resp 26 H 09/27/23 19:01 BP 124/63 09/27/23 19:01 Pulse Ox 96 09/27/23 19:01 O2 Del Method Aerosol Mask 09/27/23 19:01 BMI result Body Mass Index 21.9 Appearance: Alert. Oriented X3. Moderate acute distress. Eyes: Pupils equal, round and reactive to light. ENT: Pharynx normal. Neck: Normal inspection. Neck supple. CVS: tachycardic heart rate and rhythm. Pulses normal. Respiratory: moderate respiratory distress. Breath sounds diffuse insp and exp wheezes Abdomen: Soft and nontender. Skin: Skin warm and dry. Normal skin color. Normal skin turgor. Extremities: No lower extremity edema. No calf ttp Neuro: Oriented X 3. No motor deficit. No sensory deficit. Course Course Course Narrative: This is an RME: Additional HPI, ROS, PE not included below will be deferred to primary provider. patient is a 63-year-old female who presents emergency department shortness of breath difficulty breathing, states she has been ill for a few days, she states she came to the emergency department yesterday required 2 nebulizer treatments and was ultimately discharged home. Symptoms were unrelieved with meds at the today. Upon examination increased work of breathing, tachycardia, room air O2 saturation 98%, tachypnea, I/E wheezing bilaterally. Patient to be moved to ED bed 20, ED bronch protocol Medications Administered Discontinued Medications Generic Name Dose Route Start Last Admin Trade Name Mayra PRN Reason Stop Dose Admin Albuterol Sulfate 7.5 mg/ 10 mg 09/27/23 17:32 09/27/23 17:34 Albuterol Sulfate 2.5 mg INHALE 09/27/23 17:33 10 mg ONCE ONE Administration Albuterol Sulfate 5 mg/ 7.5 mg 09/27/23 18:49 09/27/23 18:53 Albuterol Sulfate 2.5 mg INHALE 09/27/23 18:50 7.5 mg ONCE ONE Administration Albuterol/Ipratropium 3 ml 09/27/23 17:42 09/27/23 17:57 Albuterol/Iprat 2.5/0.5mg 3 Ml Ampul.Neb INHALE 09/27/23 17:43 3 ml ONCE ONE Administration Fentanyl 50 mcg 09/27/23 18:53 09/27/23 18:59 Fentanyl Citrate/Pf 100 Mcg/2 Ml Vial IVPUSH 09/27/23 18:54 50 mcg ONCE ONE Administration Protocol Magnesium Sulfate 2 gm in 50 mls @ 25 mls/hr 09/27/23 17:25 09/27/23 18:18 Magnesium Sulfate/H2o IV 09/27/23 19:24 Infused ONCE ONE Infusion Potassium Chloride 40 meq 09/27/23 19:02 09/27/23 19:16 Potassium Chloride Packet 20 Meq Packet PO 09/27/23 19:03 40 meq ONCE ONE Administration Medical Decision Making Medical Decision Making [facility] Narrative: 63 yo female with PMH of asthma and ICU statys, COPD, GERD, anxiety, kidney stones, HTN, HLD, DM, NSTEMI, RA here with worsening exacerbation of her asthma - at this time she is refusing more steroids due to her adverse reactions will give IV magnesium, hour long neb, labs, EKG, CXR will not repeat viral panel just had it done. Will send off full [facility] resp pathogen panel. Suspect asthma exacerbation. Anticipate admisison Differential Diagnosis Differential Diagnoses: The differential diagnosis associated with the presentation includes viral syndrome, asthma exacerbation Admission/Observation Consideration of admission/observation: Escalation of care including admission/observation considered admit for further management - failed outpatient Consult Healthcare Provider Management of the patient was discussed with: Hospitalist (agrees to admit) Lab Data [facility] Lab Attestation statement: I reviewed the patient's lab results. 09/27/23 18:38 09/27/23 18:38 Labs: Lab Results 09/27/23 09/27/23 Range/Units 18:38 18:42 WBC 11.0 H (4.8-10.8) X10*3/uL RBC 4.42 (4.20-5.50) X10*6/uL Hgb 12.1 (12.0-16.0) g/dl Hct 36.2 L (37.0-47.0) % MCV 81.9 (80.0-98.0) fL MCH 27.4 (27.0-33.0) pg MCHC 33.4 (31.0-35.0) g/dl RDW 13.9 (11.0-16.0) % Plt Count 290 (160-400) X10*3/uL MPV 10.4 (9.4-12.3) fL Immature Gran % (Auto) 0.4 (0.0-0.4) % Neut % (Auto) 65.3 (45-73) % Lymph % (Auto) 28.5 (20-40) % Wheeler % (Auto) 5.6 (2-11) % Eos % (Auto) 0.1 (0-4) % Baso % (Auto) 0.1 (0-2) % Lymph # (Auto) 3.1 (1.2-4.9) X10*3/uL Wheeler # (Auto) 0.6 (0.1-1.2) X10*3/uL Eos # (Auto) 0.0 (0.0-0.4) X10*3/uL Baso # (Auto) 0.0 (0.0-0.2) X10*3/uL Abs Immat Gran (auto) 0.04 H (0.00-0.03) X10*3/uL Absolute Neuts (auto) 7.2 (2.0-8.3) x10*3/uL Absolute Nucleated RBC 0.000 (0.0-0.012) X10*3/uL Nucleated RBC % (auto) 0.0 (0.0-0.2) /100WBC VBG pH 7.51 H (7.32-7.43) VBG pCO2 28 mmHg VBG pO2 82 mmHg VBG HCO3 22 (22-26) mmol/L VBG O2 Saturation 99.0 % VBG Base Excess 1.0 mmol/L Sodium 137 (135-145) mmol/L Potassium 3.2 L D (3.3-5.1) mmol/L Chloride 105 (96-108) mmol/L Carbon Dioxide 23 (22-29) mmol/L Anion Gap 12 (12-20) BUN 13 (9-16) mg/dL Creatinine 0.86 (0.5-1.4) mg/dL Estim Creat Clear Calc 44.3 Estimated GFR > 60 Random Glucose 150 H (60-115) mg/dL Calcium 9.1 (8.4-10.2) mg/dL Magnesium 3.1 H (1.6-2.6) mg/dL Total Bilirubin 0.2 (0.0-1.0) mg/dL Direct Bilirubin < 0.2 (0.0-0.5) mg/dL AST 14 (5-31) U/L ALT 9 (0-31) U/L Alkaline Phosphatase 56 (39-117) U/L Troponin I High Sens < 2.7 (<3.5-17.0) ng/L Total Protein 6.9 (6.5-8.0) g/dL Albumin 3.8 (3.5-5.0) g/dL Independent Interpretation I performed an independent interpretation of an: EKG and Plain X-Ray (no pneumonia) Interpretation: Rate: 131 Rhythm: sinus tachycardia [place]: normal Normal P waves. Normal JIMMY. Normal QRS complex. ST T wave : no SHAD qTC: normal prior studies: no acute ischemia The study has been interpreted contemporaneously by me. . Radiology Impression Discussion of test interpretation with radiology: I have reviewed the radiologist's reading. External Record Review External record reviewed: Inpatient record Critical Care Time Critical Care Time Critical Care Time: Yes Total Critical Care Time: 45 Attestation: repeat hour long nebs I attest to this time spent taking care of the patient Discharge Plan Discharge Clinical Impression: Acute hypokalemia Asthmaticus, status Qualifiers: Asthma severity: severe Asthma persistence: persistent Qualified Code(s): J45.52 - Severe persistent asthma with status asthmaticus Patient Disposition: Admitted As Inpatient Prescriptions: No Action (DME) pen needle, diabetic [Comfort EZ Pen [place]] 31 gauge x 5/16 needle See Rx Instructions .ROUTE .MEDSUPPLY Qty: 200 11RF Rx Instructions: Use 1 pen needle 6 times a day (DME) lancets [FreeStyle Lancets] 28 gauge misc See Rx Instructions .Route Qty: 100 3RF Rx Instructions: Use 1 lancet once a day insulin aspart U-100 [Novolog FlexPen U-100 Insulin] 100 unit/mL (3 mL) insulin pen 2 - 10 unit subcut TIDAC 30 Days Qty: 15 11RF Protocol: Insulin Correction Scale Less than or equal to 110 ---- Give (units): 0 111 to 150 Give (units): 0 151 to 200 Give (units): 2 201 to 250 Give (units): 4 251 to 300 Give (units): 6 301 to 350 Give (units): 8 Greater than 350 Give (units): 10 Call MD if Blood Glucose > : 350 Rx Instructions: Via sliding scale budesonide 0.5 mg/2 mL suspension for nebulization 0.25 mg inhalation BID 30 Days Qty: 60 3RF (DME) fadumo Danielson See Rx Instructions .Route Qty: 1 0RF Rx Instructions: with seat insulin degludec [Tresiba FlexTouch U-100] 100 unit/mL (3 mL) insulin pen 20 unit subcut BEDTIME 90 Days Qty: 18 1RF letrozole 2.5 mg Tablet 2.5 mg PO DAILY Qty: 90 3RF Trulicity 1.5 mg/0.5 mL pen injector 1.5 mg subcut WE@0900 90 Days Qty: 6.5 2RF ipratropium-albuterol 0.5 mg-3 mg(2.5 mg base)/3 mL solution for nebulization 3 ml inhalation Q6H Qty: 180 0RF aspirin 81 mg tablet,delayed release (DR/EC) 81 mg PO DAILY 90 Days Qty: 90 1RF ipratropium bromide 0.02 % solution 2.5 ml inhalation Q6H PRN (Reason: shortness of breath or wheezing) Qty: 150 3RF prednisone 5 mg tablet 5 mg PO DAILY 30 Days Qty: 30 3RF pregabalin [Lyrica] 200 mg capsule 200 mg PO BID Qty: 60 5RF levalbuterol tartrate 45 mcg/actuation HFA aerosol inhaler 2 puff inhalation Q4-6H PRN (Reason: shortness of breath) 30 Days Qty: 15 3RF trazodone 100 mg tablet 100 mg PO BEDTIME 90 Days Qty: 90 0RF ondansetron 4 mg tablet,disintegrating 4 mg PO Q6H PRN (Reason: nausea and vomiting) Qty: 14 0RF morphine 15 mg tablet 15 mg PO Q8H PRN (Reason: pain) Qty: 15 0RF Rx Instructions: Partial Fill upon patient request. prednisone 20 mg tablet 20 mg PO DAILY Qty: 4 0RF famotidine 20 mg tablet 20 mg PO BEDTIME 90 Days Qty: 90 1RF pantoprazole 40 mg tablet,delayed release (DR/EC) 40 mg PO BID 90 Days Qty: 180 0RF (DME) FreeStyle Lite Strips Strip MISCELLANEOUS DAILY Qty: 100 1RF Rx Instructions: Use 1 test strip three times a day tamsulosin [Flomax] 0.4 mg capsule 0.4 mg PO DAILY Qty: 14 0RF albuterol sulfate 90 mcg/actuation HFA aerosol inhaler inhalation codeine-guaifenesin 10-100 mg/5 mL liquid 10 ml PO Q4-6H PRN (Reason: cough) [id number] 50-325-40 mg tablet 1 tab PO Q6H PRN (Reason: pain) varenicline [Chantix Starting Month Box] 0.5 mg (11)- 1 mg (42) tablets,dose pack See Rx Instructions PO PER PKG DIR Qty: 53 0RF Rx Instructions: PO PER PKG DIR lubiprostone [Amitiza] 8 mcg capsule 16 mcg PO BID 90 Days Qty: 360 1RF
[2023-09-27] MEDS: Albuterol Sulfate 7.5 MG, Albuterol Sulfate (0.083%) 2.5 MG 10 MG INHALE (17:34)
--- NOTE | 2023-09-27 17:38 | ECG_ITS ---
Test Reason : SOB Blood Pressure : / mmHG Vent. Rate : 131 BPM Atrial Rate : 131 BPM P-R Int : 120 ms QRS Dur : 082 ms QT Int : 302 ms P-R-T Axes : 076 076 053 degrees QTc Int : 445 ms Sinus tachycardia Intra-ventricular conduction delay Possible Left atrial enlargement Borderline ECG When compared with ECG of 26-SEP-2023 09:46, Heart rate has increased Referred By: Angelic Mark Electronically Signed By:DIPTI RUIZ MD
[2023-09-27] MEDS: Magnesium Sulfate/H2O 2 GM/50 ML PIGGYBACK IV (17:42)
--- NOTE | 2023-09-27 17:48 | MHC.EDTECH ---
Unable to obtain EKG and labs a this time. RN aware
[2023-09-27] MEDS: Albuterol/Iprat 2.5/0.5MG 3 ML AMPUL.NEB INHALE (17:57)
--- NOTE | 2023-09-27 18:13 | PC.NURSE ---
pt is alert and oriented, skin appropriate for ethnicity, respirations labored and using accessory muscles with some upper retractions, ls whizzing throughout and diminished, breathing anywhere from 24-30, sinus tach on the monitor ranging from 120-130's, with a dry cough and pt is reporting upper back between her shoulder blades pain at 9/10
[2023-09-27 18:43] LABS: MANUAL DIFF FLAG NO
[2023-09-27 18:46] LABS: Basophils Percent Auto 0.1 % (0-2); Eosinophils Percent Auto 0.1 % (0-4); Hematocrit 36.2 % (37.0-47.0); Hemoglobin 12.1 g/dl (12.0-16.0); Imm Gran Abs Auto 0.04 X10*3/uL (0.00-0.03); Imm Gran Pct Auto 0.4 % (0.0-0.4); Lymphocytes Absolute Auto 3.1 X10*3/uL (1.2-4.9); Lymphocytes Percent Auto 28.5 % (20-40); Mean Corpuscular HGB Conc 33.4 g/dl (31.0-35.0); Mean Corpuscular Hemoglobin 27.4 pg (27.0-33.0); Mean Corpuscular Volume 81.9 fL (80.0-98.0); Mean Platelet Volume 10.4 fL (9.4-12.3); Monocytes Absolute Auto 0.6 X10*3/uL (0.1-1.2); Monocytes Percent Auto 5.6 % (2-11); Neutrophils Absolute Auto 7.2 x10*3/uL (2.0-8.3); Neutrophils Percent Auto 65.3 % (45-73); Platelet Count 290 X10*3/uL (160-400); Red Blood Count 4.42 X10*6/uL (4.20-5.50); Red Cell Distribution Width 13.9 % (11.0-16.0)
[2023-09-27 18:47] LABS: VBG HCO3 22 mmol/L (22-26); VBG pCO2 28 mmHg; VBG pH 7.51 (7.32-7.43); VBG pO2 82 mmHg
[2023-09-27 18:48] LABS: Venous Blood Gas Refer to POC result
--- NOTE | 2023-09-27 18:51 | PC.NURSE ---
pt reports not feeling much better after the breathing treatments, still wheezing through out and having the cough and pain in the back area
[2023-09-27] MEDS: Albuterol Sulfate 5 MG, Albuterol Sulfate (0.083%) 2.5 MG 7.5 MG INHALE (18:53)
[2023-09-27] MEDS: fentaNYL citrate/PF 100 MCG/2 ML VIAL 50 MCG IVPUSH (18:59)
[2023-09-27 19:00] LABS: Alanine Aminotransferase 9 U/L (0-31); Albumin Level 3.8 g/dL (3.5-5.0); Alkaline Phosphatase 56 U/L (39-117); Anion Gap 12 (12-20); Aspartate Amino Transferase 14 U/L (5-31); Bilirubin Direct < 0.2 mg/dL (0.0-0.5); Bilirubin Total 0.2 mg/dL (0.0-1.0); Blood Urea Nitrogen 13 mg/dL (9-16); Calcium 9.1 mg/dL (8.4-10.2); Carbon Dioxide 23 mmol/L (22-29); Chloride 105 mmol/L (96-108); Creatinine Clr Calc Pharmacy 44.3; Estimated Glomerular Filt Rate > 60; Glucose Random 150 mg/dL (60-115); Magnesium 3.1 mg/dL (1.6-2.6); Potassium 3.2 mmol/L (3.3-5.1); Sodium 137 mmol/L (135-145); Total Protein 6.9 g/dL (6.5-8.0)
[2023-09-27 19:07] LABS: Troponin-I High Sensitivity < 2.7 ng/L (<3.5-17.0)
--- NOTE | 2023-09-27 19:13 | P.HPHOSP_ITS ---
History of Present Illness Date of Service: 09/27/23 Chief Complaint: Dyspnea This is a 63-year-old female with pertinent history of asthma/COPD overlap syndrome not on home oxygen, tobacco use disorder, insulin-dependent diabetes mellitus, gastroesophageal reflux disease, mood disorder, CAD status post PCI who presents to the emergency department for evaluation of dyspnea. Patient states started 1 day prior to presentation. She presented to the ER on 09/26 and was discharged home with p.o. prednisone. Patient states her symptoms did not improve and she continued to have dyspnea, worse with exertion and wheezing. Also has been having cough with intermittent sputum production. No fever, chills, chest discomfort, palpitations, nausea, vomiting, abdominal pain, changes in urinary or bowel habits. She continues to smoke cigarettes In the emergency department, patient continued to have wheezing despite DuoNeb treatments. Review of Systems 2 Constitutional: Constitutional: Reports fatigue and Reports lethargy Cardiovascular: Cardiovascular: Reports dyspnea on exertion Respiratory: Respiratory: Reports cough, Reports dyspnea on exertion and Reports wheezing Gastrointestinal: Gastrointestinal: Reports no additional gastrointestinal complaints Genitourinary: Genitourinary: Reports no additional female genitourinary complaints Endocrine: Endocrine: Reports fatigue Allergic/Immunologic: Allergic/Immunologic: Reports wheezing [facility] Medical History Tendonitis of ankle or foot Colitis Cough Anxiety CAD (coronary artery disease) HLD (hyperlipidemia) HTN (hypertension) T2DM (type 2 diabetes mellitus) COPD exacerbation Hyperkalemia Atherosclerotic cardiovascular disease Hospital discharge follow-up GERD (gastroesophageal reflux disease) CVA (cerebral vascular accident) Breast pain, right Rash Bloody diarrhea PAD (peripheral artery disease) Hyperlipidemia LDL goal <100 COPD (chronic obstructive pulmonary disease) Infiltrating ductal carcinoma of left breast, stage 2 Insomnia Dyslipidemia Bipolar 1 disorder, depressed Cough Restrictive airway disease Hypothyroid IDDM (insulin dependent diabetes mellitus) Vitamin D deficiency Osteoporosis Hyperparathyroidism Thyroid nodule Depression Fibromyalgia Seropositive rheumatoid arthritis Reactive airways dysfunction syndrome Allergic rhinitis Irritable bowel Anxiety Bronchial asthma Diabetes type 2, uncontrolled Hypertension Family History Mother Diabetes HTN (hypertension) Uterus cancer Malignant tumor of head Breast cancer Father Diabetes HTN (hypertension) CVD (cardiovascular disease) Heart problem Maternal Aunt Breast cancer Brother Myocardial infarction S/P CABG x 4 Family/Other FH: mental illness Family/Other Lung cancer Other Mental health disorder Surgical History Hx of sigmoidoscopy History of bronchoscopy Hx of endoscopy H/O cardiac catheterization History of lumpectomy of left breast History of pubovaginal sling History of esophagogastroduodenoscopy (EGD) History of tubal ligation History of colonoscopy History of bunionectomy of both great toes H/O: hysterectomy Social History Household Members: Family Household Members Other:: sister Housing: House Are you a primary urgent care physician to a significant other at home: No Do you presently have visiting nurse or other home services: Yes (sister is customer management specialist) Unable to assess alcohol history related to: Unknown Alcohol intake: never Patient Tobacco Use Status: Current everyday Tobacco user Tobacco use type: Cigarette Cigarette Packs Per Day: 0.5 Cigarettes Per Day: 4 Years Smoked: 12 Smoked in Last 30 Days: Yes e-Cigarette/Vaping Use: Never Used Second Hand Smoke Exposure: Yes Use of substances other than those prescribed or required for medical reasons: Yes Substance Use Type: Marijuana Substance Use Frequency: Occasionally Advance Directives: Yes Advance Directives on File: Yes Advance Directives Date on File: 12/22/21 service: No Current occupational status: disabled Current occupation: rt handed Cognitive needs: No Hearing needs: No Vision needs: Yes Meds Allergies Allergy/AdvReac Type Severity Reaction Status Date / Time dog dander [DOGS] Allergy Intermediate Respiratory Verified 09/26/23 09:24 distress shellfish derived Allergy Intermediate Hives Verified 09/26/23 09:24 methylprednisolone Allergy Rash Verified 09/26/23 09:24 etanercept [From Enbrel] AdvReac Intermediate Facial Verified 09/26/23 09:24 Swelling ibuprofen [Ibuprofen] AdvReac Intermediate STOMACH Verified 09/26/23 09:24 UPSET, abdominal pain, nausea and vomiting metformin AdvReac Intermediate Diarrhea Verified 09/26/23 09:24 metronidazole [From FLAGYL] AdvReac Intermediate Diarrhea Verified 09/26/23 09:24 prednisone AdvReac Intermediate hallucinations, Verified 09/26/23 09:24 higher than 20 Active Medications: Current Medications Magnesium Sulfate (Magnesium Sulfate/H2o) 2 gm in 50 mls @ 25 mls/hr IV ONCE ONE Stop: 09/27/23 19:24 Last Infusion: 09/27/23 18:18 Dose: Infused Home Medications Medication Instructions Recorded Confirmed Last Taken Type ldzkrbltbo-yvzfheozhyaav-bfcnzfhu 1 tab PO Q6H PRN pain 06/17/23 09/23/23 Unknown History 50 mg-325 mg-40 mg tablet codeine 10 mg-guaifenesin 100 mg/5 10 ml PO Q4-6H PRN cough 06/17/23 09/23/23 Unknown History mL oral liquid albuterol sulfate 90 mcg/actuation inhalation 08/23/23 09/23/23 Unknown History aerosol inhaler Physical Exam 2 Vital Signs and Narrative: Vital Signs: Last Vital Signs Temp 99.1 F 09/27/23 17:13 Pulse 131 H 09/27/23 19:01 Resp 26 H 09/27/23 19:01 BP 124/63 09/27/23 19:01 Pulse Ox 96 09/27/23 19:01 O2 Del Method Aerosol Mask 09/27/23 19:01 BMI result Body Mass Index 21.9 Middle-aged male lying in bed in mild distress Neck supple, no JVD Tachycardia with regular rhythm, S1-S2 heard Bilateral wheezing with tachypnea Abdomen soft nontender, no guarding, no rigidity Patient is awake, alert and oriented to self, place, time and person ; no focal motor deficit Psych: Normal mood No pedal edema Results Labs 09/27/23 18:38 09/27/23 18:38 Labs: Laboratory Results - last 24 hr 09/27/23 09/27/23 18:38 18:42 MCV 81.9 MCH 27.4 MCHC 33.4 RDW 13.9 Plt Count 290 MPV 10.4 Immature Gran % (Auto) 0.4 Neut % (Auto) 65.3 Lymph % (Auto) 28.5 [place] % (Auto) 5.6 Eos % (Auto) 0.1 Baso % (Auto) 0.1 Lymph # (Auto) 3.1 [place] # (Auto) 0.6 Eos # (Auto) 0.0 Baso # (Auto) 0.0 Abs Immat Gran (auto) 0.04 H Absolute Neuts (auto) 7.2 Absolute Nucleated RBC 0.000 Nucleated RBC % (auto) 0.0 VBG pH 7.51 H VBG pCO2 28 VBG pO2 82 VBG HCO3 22 VBG O2 Saturation 99.0 VBG Base Excess 1.0 Anion Gap 12 Estim Creat Clear Calc 44.3 Estimated GFR > 60 Random Glucose 150 H Calcium 9.1 Magnesium 3.1 H Total Bilirubin 0.2 Direct Bilirubin < 0.2 AST 14 ALT 9 Alkaline Phosphatase 56 Total Protein 6.9 Albumin 3.8 Imaging Radiologist's Impressions: Impressions Chest X-Ray 09/27/23 18:14 IMPRESSION: Unremarkable examination. Assessment and Plan (1) Acute respiratory distress: Status: Acute Plan This is a 63-year-old female with pertinent history of asthma/COPD overlap syndrome not on home oxygen, tobacco use disorder, insulin-dependent diabetes mellitus, gastroesophageal reflux disease, mood disorder, CAD status post PCI who presents to the emergency department for evaluation of dyspnea. #. Acute respiratory distress due to acute exacerbation of asthma/COPD overlap syndrome: Will admit patient and initiate systemic steroids. Scheduled and p.r.n. DuoNebs. Initiating azithromycin for pleiotropic effect. Continue home inhaler. Tachypnea and tachycardia due to exacerbation of obstructive lung disease, no sepsis. Viral panel pending #. Hypokalemia: Repleted #. Insulin-dependent diabetes mellitus: Reduce home basal insulin. Initiating Accu-Cheks with sliding scale insulin #. Tobacco use disorder: Counseled regarding cessation. Offered nicotine patch #. Gastroesophageal reflux disease: On PPI #. Mood disorder: Continue home mood stabilizers #. Coronary artery disease: Continue antiplatelet agent Med rec pending DVT prophylaxis: Lovenox Quality Stroke Does the patient have a stroke diagnosis?: No VTE Prior VTE?: No VTE Risk Level:: Medical - moderate - high VTE Device Contraindication: Treatment Not Indicated VTE Drug Contraindication: N/A - Med Ordered
[2023-09-27] MEDS: Potassium Chloride Packet 20 MEQ PACKET 40 MEQ PO (19:16)
[2023-09-27] MEDS: methylPREDNISolone Sod Succ 40 MG/ML VIAL IVPUSH (19:54)
[2023-09-27] MEDS: Azithromycin 500 MG in 0.9 % Sodium Chloride 250 ML 125 MG IV (19:54)
--- NOTE | 2023-09-27 20:11 | PC.NURSE ---
pt a&ox4, respirations even and unlabored. pt reports shortness of btrath
--- NOTE | 2023-09-27 20:15 | PC.NURSE ---
pt a&Ox4, respirations even and unlabored. pt reports shortness of breath, pt has received 4 duonebs at this time. pt denies pain. antibiotics initiated at this time. pt refused nicotine oatch reporting she does not have cravings at this time. at bedside to admit pt.
--- NOTE | 2023-09-27 20:27 | PHA.MEDREC ---
Pharmacy Consult ? Medication Reconciliation Pharmacy has completed the medication reconciliation. Spoke to patient at bedside, able to confirm list. Pt states she is no longer taking any insulins, just her Trulicity every . She also states she has an rx for Chantix but has not picked it up yet
[2023-09-27 21:55] LABS: Glucose, Whole Blood 167 mg/dL (60-115)
[2023-09-27] MEDS: Insulin Glargine,Hum.rec.anlog 100 UNIT/ML 10 ML VIAL 15 UNIT SUBCUT (22:14)
[2023-09-27] MEDS: Insulin Lispro 100 UNIT/ML 3 ML VIAL SUBCUT (22:14)
--- NOTE | 2023-09-27 22:25 | PC.NURSE ---
report given to [facility] nurse.
[2023-09-27] MEDS: Morphine Sulfate Immed Release 15 MG TABLET PO (22:56)
[2023-09-28] VITALS (10 sets, daily range): BP systolic 105–144; BP diastolic 55–71; PULSE 92–112; RESP 18–20; TEMP 36.3–36.9; O2SAT 92–99
[2023-09-28] MEDS: Morphine Sulfate Immed Release 15 MG TABLET PO ×2 (06:29→15:20)
[2023-09-28 06:34] LABS: MANUAL DIFF FLAG NO
[2023-09-28 06:36] LABS: Basophils Percent Auto 0.2 % (0-2); Hematocrit 36.9 % (37.0-47.0); Hemoglobin 11.9 g/dl (12.0-16.0); Imm Gran Abs Auto 0.04 X10*3/uL (0.00-0.03); Imm Gran Pct Auto 0.5 % (0.0-0.4); Lymphocytes Absolute Auto 1.2 X10*3/uL (1.2-4.9); Lymphocytes Percent Auto 14.7 % (20-40); Mean Corpuscular HGB Conc 32.2 g/dl (31.0-35.0); Mean Corpuscular Hemoglobin 27.2 pg (27.0-33.0); Mean Corpuscular Volume 84.4 fL (80.0-98.0); Mean Platelet Volume 10.6 fL (9.4-12.3); Monocytes Absolute Auto 0.4 X10*3/uL (0.1-1.2); Monocytes Percent Auto 5.3 % (2-11); Neutrophils Absolute Auto 6.6 x10*3/uL (2.0-8.3); Neutrophils Percent Auto 79.3 % (45-73); Platelet Count 317 X10*3/uL (160-400); Red Blood Count 4.37 X10*6/uL (4.20-5.50); Red Cell Distribution Width 14.1 % (11.0-16.0); White Blood Count 8.3 X10*3/uL (4.8-10.8)
[2023-09-28 06:57] LABS: COVID-19 Test Negative (Negative); IDNOW Serial# 08D9AD1C; IDNOW Serial# BCCEAD1C; Influenza A Negative (Negative); Influenza B2 Negative (Negative)
[2023-09-28 07:30] LABS: Anion Gap 12 (12-20); Blood Urea Nitrogen 10 mg/dL (9-16); Calcium 8.5 mg/dL (8.4-10.2); Carbon Dioxide 23 mmol/L (22-29); Chloride 108 mmol/L (96-108); Creatinine Clr Calc Pharmacy 50.8; Estimated Glomerular Filt Rate > 60; Glucose Random 190 mg/dL (60-115); Potassium 5.1 mmol/L (3.3-5.1); Sodium 138 mmol/L (135-145)
[2023-09-28 07:48] LABS: Glucose, Whole Blood 152 mg/dL (60-115)
[2023-09-28] MEDS: Albuterol/Iprat 2.5/0.5MG 3 ML AMPUL.NEB INHALE ×4 (08:06→18:51)
[2023-09-28] MEDS: 0.9 % Sodium Chloride Flush 3 ML SYRINGE IVFLUSH ×3 (08:13→20:28)
[2023-09-28] MEDS: Insulin Lispro 100 UNIT/ML 3 ML VIAL SUBCUT ×2 (08:14→16:45)
[2023-09-28] MEDS: methylPREDNISolone Sod Succ 40 MG/ML VIAL IVPUSH ×2 (08:14→20:02)
--- NOTE | 2023-09-28 10:32 | P.PNIM_ITS ---
Subjective Subjective Date of Service: 09/28/23 Review of Systems Follow up asthma/copd exacerbation still wheezing and sob with ambulation Physical Exam 2 Vital Signs: Vital Signs: Last Vital Signs Temp 97.8 F 09/28/23 07:54 Pulse 112 H 09/28/23 08:08 Resp 20 09/28/23 08:08 BP 105/56 L 09/28/23 07:54 Pulse Ox 95 09/28/23 07:54 O2 Del Method Room Air 09/28/23 07:54 BMI result Body Mass Index 21.9 Appearing in no acute distress lung sounds course exp wheezing heart regular rate rhythm, clear S1, S2 positive bowel sounds, abdomen is soft, nontender neuro patient is alert x3, no focal deficits Objective Data Active Medications Acetaminophen (Acetaminophen 325 Mg Tablet) 650 mg PO Q6H PRN PRN Reason: Pain, Mild (Pain Scale 1-3) Albuterol/Ipratropium (Albuterol/Iprat 2.5/0.5mg 3 Ml Ampul.Neb) 3 ml INHALE RQ4H WHILE AWAKE [facility] Last Admin: 09/28/23 08:06 Dose: 3 ml Documented By: HAWA Albuterol/Ipratropium (Albuterol/Iprat 2.5/0.5mg 3 Ml Ampul.Neb) 3 ml INHALE Q4H PRN PRN Reason: Wheezing Aspirin (Aspirin Enteric Coated 81 Mg Tablet.Dr) 81 mg PO DAILY [facility] Dextrose (Dextrose 50 % 25 Gm/50 Ml Syringe) 25 gm IVPUSH Q15M PRN; Protocol PRN Reason: per Hypoglycemia Standing Ord. Enoxaparin Sodium (Enoxaparin Sodium 40 Mg/0.4 Ml Syringe) 40 mg SUBCUT Q24H [facility] Last Admin: 09/27/23 20:03 Dose: Not Given Documented By: CHELSIE Non-Admin Reason: Patient Refused Famotidine (Famotidine 20 Mg Tablet) 20 mg PO BEDTIME [facility] Glucose (Glucose Gel 15 Gm Gel..Gram.) 15 gm PO Q15M PRN; Protocol PRN Reason: per Hypoglycemia Standing Ord. Azithromycin 500 mg/ Sodium (Chloride) 250 mls @ 125 mls/hr IV Q24H [facility] Last Infusion: 09/27/23 22:21 Dose: Infused Documented By: CHELSIE Insulin Glargine (Insulin Glargine,Hum.Rec.Anlog 100 Unit/Ml 10 Ml Vial) 15 unit SUBCUT BEDTIME [facility] Last Admin: 09/27/23 22:14 Dose: 15 unit Documented By: CHELSIE Insulin Human Lispro (Insulin Lispro 100 Unit/Ml 3 Ml Vial) 0 unit SUBCUT QIDACHS [facility]; Protocol Last Admin: 09/28/23 08:14 Dose: 2 unit Documented By: PATY Letrozole (Letrozole 2.5 Mg Tablet) 2.5 mg PO DAILY [facility] Melatonin (Melatonin 3 Mg Tablet) 6 mg PO BEDTIME PRN PRN Reason: Insomnia Methylprednisolone Sodium Succinate (Methylprednisolone Sod Succ 40 Mg/Ml Vial) 40 mg IVPUSH Q12H [facility] Last Admin: 09/28/23 08:14 Dose: 40 mg Documented By: PATY Morphine Sulfate (Morphine Sulfate Immed Release 15 Mg Tablet) 15 mg PO Q6H PRN PRN Reason: Pain, Severe (Pain Scale 7-10) Last Admin: 09/28/23 06:29 Dose: 15 mg Documented By: ÁLVARO Nicotine (Nicotine 14 Mg Patch.Td24) 14 mg TRANSDERMA DAILY [facility] Last Admin: 09/28/23 08:12 Dose: Not Given Documented By: PATY Non-Admin Reason: Patient Refused Ondansetron HCl (Ondansetron Hcl 4 Mg/2 Ml Vial) 4 mg IVPUSH Q8H PRN PRN Reason: Nausea and Vomiting Sodium Chloride (0.9 % Sodium Chloride Flush 3 Ml Syringe) 3 ml IVFLUSH QSHIFT [facility] Last Admin: 09/28/23 08:13 Dose: 3 ml Documented By: PATY Labs 09/28/23 06:27 09/28/23 06:27 Labs: Laboratory Results - last 24 hr 09/27/23 09/27/23 09/27/23 18:38 18:39 18:42 MCV 81.9 MCH 27.4 MCHC 33.4 RDW 13.9 Plt Count 290 MPV 10.4 Immature Gran % (Auto) 0.4 Neut % (Auto) 65.3 Lymph % (Auto) 28.5 [place] % (Auto) 5.6 Eos % (Auto) 0.1 Baso % (Auto) 0.1 Lymph # (Auto) 3.1 [place] # (Auto) 0.6 Eos # (Auto) 0.0 Baso # (Auto) 0.0 Abs Immat Gran (auto) 0.04 H Absolute Neuts (auto) 7.2 Absolute Nucleated RBC 0.000 Nucleated RBC % (auto) 0.0 VBG pH 7.51 H VBG pCO2 28 VBG pO2 82 VBG HCO3 22 VBG O2 Saturation 99.0 VBG Base Excess 1.0 Anion Gap 12 Estim Creat Clear Calc 44.3 Estimated GFR > 60 POC Glucose Random Glucose 150 H Calcium 9.1 Magnesium 3.1 H Total Bilirubin 0.2 Direct Bilirubin < 0.2 AST 14 ALT 9 Alkaline Phosphatase 56 Total Protein 6.9 Albumin 3.8 Respiratory Panel [place] Cancelled Adenovirus (Rapid PCR) Cancelled B.pert (TEM-PCR) Cancelled B.parapertussis DNA PCR Cancelled C. pneumoniae DNA (PCR) Cancelled Coronavirus OC43 (PCR) Cancelled Coronavirus HKU1 (PCR) Cancelled Coronavirus 229E (PCR) Cancelled COVID-19 (KRISS) COVID-19 Clin Com Coronavirus NL63 (PCR) Cancelled Human Metapneumovir PCR Cancelled Influenza Type A (CEDRIC) Influenza A (RT-PCR) Cancelled Influenza Type B (CEDRIC) Influenza B (RT-PCR) Cancelled Influenza A & B Note M. pneumoniae (PCR) Cancelled Parainfluenza 1 (PCR) Cancelled Parainfluenza 2 (PCR) Cancelled Parainfluenza 3 (PCR) Cancelled Parainfluenza 4 (PCR) Cancelled RSV (PCR) Cancelled Entero/Rhino (PCR) Cancelled SARS-CoV-2 RNA (RT-PCR) Cancelled 09/27/23 09/28/23 09/28/23 21:50 06:27 06:30 MCV 84.4 MCH 27.2 MCHC 32.2 RDW 14.1 Plt Count 317 MPV 10.6 Immature Gran % (Auto) 0.5 H Neut % (Auto) 79.3 H Lymph % (Auto) 14.7 L [place] % (Auto) 5.3 Eos % (Auto) 0.0 Baso % (Auto) 0.2 Lymph # (Auto) 1.2 [place] # (Auto) 0.4 Eos # (Auto) 0.0 Baso # (Auto) 0.0 Abs Immat Gran (auto) 0.04 H Absolute Neuts (auto) 6.6 Absolute Nucleated RBC 0.000 Nucleated RBC % (auto) 0.0 VBG pH VBG pCO2 VBG pO2 VBG HCO3 VBG O2 Saturation VBG Base Excess Anion Gap 12 Estim Creat Clear Calc 50.8 Estimated GFR > 60 POC Glucose 167 H Random Glucose 190 H Calcium 8.5 D Magnesium Total Bilirubin Direct Bilirubin AST ALT Alkaline Phosphatase Total Protein Albumin Respiratory Panel [place] Adenovirus (Rapid PCR) B.pert (TEM-PCR) B.parapertussis DNA PCR C. pneumoniae DNA (PCR) Coronavirus OC43 (PCR) Coronavirus HKU1 (PCR) Coronavirus 229E (PCR) COVID-19 (KRISS) Negative COVID-19 Clin Com See Note Coronavirus NL63 (PCR) Human Metapneumovir PCR Influenza Type A (CEDRIC) Negative Influenza A (RT-PCR) Influenza Type B (CEDRIC) Negative Influenza B (RT-PCR) Influenza A & B Note See Note M. pneumoniae (PCR) Parainfluenza 1 (PCR) Parainfluenza 2 (PCR) Parainfluenza 3 (PCR) Parainfluenza 4 (PCR) RSV (PCR) Entero/Rhino (PCR) SARS-CoV-2 RNA (RT-PCR) 09/28/23 07:45 MCV MCH MCHC RDW Plt Count MPV Immature Gran % (Auto) Neut % (Auto) Lymph % (Auto) [place] % (Auto) Eos % (Auto) Baso % (Auto) Lymph # (Auto) [place] # (Auto) Eos # (Auto) Baso # (Auto) Abs Immat Gran (auto) Absolute Neuts (auto) Absolute Nucleated RBC Nucleated RBC % (auto) VBG pH VBG pCO2 VBG pO2 VBG HCO3 VBG O2 Saturation VBG Base Excess Anion Gap Estim Creat Clear Calc Estimated GFR POC Glucose 152 H Random Glucose Calcium Magnesium Total Bilirubin Direct Bilirubin AST ALT Alkaline Phosphatase Total Protein Albumin Respiratory Panel [place] Adenovirus (Rapid PCR) B.pert (TEM-PCR) B.parapertussis DNA PCR C. pneumoniae DNA (PCR) Coronavirus OC43 (PCR) Coronavirus HKU1 (PCR) Coronavirus 229E (PCR) COVID-19 (KRISS) COVID-19 Clin Com Coronavirus NL63 (PCR) Human Metapneumovir PCR Influenza Type A (CEDRIC) Influenza A (RT-PCR) Influenza Type B (CEDRIC) Influenza B (RT-PCR) Influenza A & B Note M. pneumoniae (PCR) Parainfluenza 1 (PCR) Parainfluenza 2 (PCR) Parainfluenza 3 (PCR) Parainfluenza 4 (PCR) RSV (PCR) Entero/Rhino (PCR) SARS-CoV-2 RNA (RT-PCR) Assessment and Plan (1) Acute respiratory distress: Status: Acute Plan This is a 63-year-old female with pertinent history of asthma/COPD overlap syndrome not on home oxygen, tobacco use disorder, insulin-dependent diabetes mellitus, gastroesophageal reflux disease, mood disorder, CAD status post PCI who presents to the emergency department for evaluation of dyspnea. Acute respiratory distress due to acute exacerbation of asthma/COPD overlap syndrome systemic steroids, Scheduled and p.r.n. DuoNebs. azithromycin for pleiotropic effect. Continue home inhaler. Viral panel pending Hypokalemia Repleted and resolved Insulin-dependent diabetes mellitus ss, ada diet Tobacco use disorder Counseled regarding cessation. Offered nicotine patch Gastroesophageal reflux disease On PPI Mood disorder Continue home mood stabilizers Coronary artery disease Continue antiplatelet agent Chronic pain Morphine DVT prophylaxis: Lovenox Attending Dr. Messina full code continued hospitalization for treatment of COPD requiring scheduled respiratory treatments and IV steroids that could not be done at a less acute setting Quality Stroke Does the patient have a stroke diagnosis?: No VTE Prior VTE?: No VTE Risk Level:: Medical - moderate - high VTE Device Contraindication: Treatment Not Indicated VTE Drug Contraindication: N/A - Med Ordered
[2023-09-28 11:19] LABS: Glucose, Whole Blood 126 mg/dL (60-115)
[2023-09-28] MEDS: Pregabalin 200 MG CAPSULE PO ×2 (11:37→20:18)
[2023-09-28] MEDS: Aspirin Enteric Coated 81 MG TABLET.DR PO (11:37)
[2023-09-28 12:57] LABS: Adenovirus PCR Not Detected (Not Detect.); Bordetella parapertussis PCR Not Detected (Not Detect.); Bordetella pertussis PCR Not Detected (Not Detect.); Chlamydia pneumoniae PCR Not Detected (Not Detect.); Coronavirus 229E PCR Not Detected (Not Detect.); Coronavirus HKU1 PCR Not Detected (Not Detect.); Coronavirus NL63 PCR Not Detected (Not Detect.); Coronavirus OC43 PCR Not Detected (Not Detect.); Human metapneumovirus PCR Not Detected (Not Detect.); Influenza A PCR Not Detected (Not Detect.); Influenza B PCR Not Detected (Not Detect.); Mycoplasma pneumoniae PCR Not Detected (Not Detect.); Parainfluenza 1 PCR Not Detected (Not Detect.); Parainfluenza 2 PCR Not Detected (Not Detect.); Parainfluenza 3 PCR Detected (Not Detect.); Parainfluenza 4 PCR Not Detected (Not Detect.); RSV PCR Not Detected (Not Detect.); Rhino/Enterovirus PCR Not Detected (Not Detect.)
[2023-09-28 13:09] LABS: SARS-CoV-2 PCR Not Detected (Not Detect.)
--- NOTE | 2023-09-28 15:10 | MHC.CM.PN ---
IMM 09/28. Pt lives at home with her sister who is her [employer] and HCP. Pt uses a cane and walker. Goal is to return home with sister/[employer]. Her sister will transport her home. PCP: Dr. Adela Wasserman
--- NOTE | 2023-09-28 15:15 | MHC.CM.PN ---
ESE 09/28. Pt lives at home with her sister who is her [employer] and HCP. Pt uses a cane and walker. Goal is to return home with sister/[employer]. Her sister will transport her home. PCP: Dr. Adela Wasserman
[2023-09-28 16:10] LABS: Glucose, Whole Blood 165 mg/dL (60-115)
[2023-09-28] MEDS: Omeprazole 20 MG CAPSULE.DR PO (16:46)
[2023-09-28] MEDS: diphenhydrAMINE HCL 25 MG CAPSULE 12.5 MG PO (18:25)
[2023-09-28] MEDS: Enoxaparin Sodium 40 MG/0.4 ML SYRINGE SUBCUT (20:02)
[2023-09-28] MEDS: Famotidine 20 MG TABLET PO (20:03)
[2023-09-28] MEDS: Azithromycin 500 MG in 0.9 % Sodium Chloride 250 ML 125 MG IV (20:17)
[2023-09-28] MEDS: traZODone HCL 100 MG TABLET PO (20:18)
[2023-09-28] MEDS: Insulin Glargine,Hum.rec.anlog 100 UNIT/ML 10 ML VIAL 15 UNIT SUBCUT (20:28)
[2023-09-28 20:45] LABS: Glucose, Whole Blood 112 mg/dL (60-115)
[2023-09-29] VITALS (10 sets, daily range): BP systolic 113–154; BP diastolic 65–91; PULSE 94–106; RESP 18–20; TEMP 36.2–37; O2SAT 94–99
[2023-09-29] MEDS: Omeprazole 20 MG CAPSULE.DR PO ×2 (05:46→17:14)
[2023-09-29] MEDS: Albuterol/Iprat 2.5/0.5MG 3 ML AMPUL.NEB INHALE ×4 (07:34→19:35)
[2023-09-29 07:41] LABS: Glucose, Whole Blood 110 mg/dL (60-115)
[2023-09-29 07:49] LABS: Anion Gap 12 (12-20); Blood Urea Nitrogen 12 mg/dL (9-16); Calcium 9.5 mg/dL (8.4-10.2); Carbon Dioxide 26 mmol/L (22-29); Chloride 106 mmol/L (96-108); Creatinine Clr Calc Pharmacy 51.5; Estimated Glomerular Filt Rate > 60; Glucose Random 124 mg/dL (60-115); Potassium 4.5 mmol/L (3.3-5.1); Sodium 139 mmol/L (135-145)
[2023-09-29] MEDS: Pregabalin 200 MG CAPSULE PO ×2 (08:10→21:20)
[2023-09-29] MEDS: Aspirin Enteric Coated 81 MG TABLET.DR PO (08:10)
[2023-09-29] MEDS: 0.9 % Sodium Chloride Flush 3 ML SYRINGE IVFLUSH ×3 (08:12→21:22)
[2023-09-29] MEDS: Morphine Sulfate Immed Release 15 MG TABLET PO ×3 (08:13→22:21)
[2023-09-29] MEDS: Letrozole 2.5 MG TABLET PO (08:14)
[2023-09-29] MEDS: guaiFENesin LA 600 MG TAB.ER.12H PO ×2 (09:41→21:20)
[2023-09-29] MEDS: predniSONE 20 MG TABLET 40 MG PO (09:41)
--- NOTE | 2023-09-29 09:49 | HO.PM.IMPN ---
Subjective Subjective Date of Service: 09/29/23 Review of Systems Follow up asthma/copd exacerbation still wheezing and sob with ambulation Physical Exam Vital Signs: Vital Signs: Last Vital Signs Temp 97.5 F 09/29/23 08:00 Pulse 106 H 09/29/23 08:00 Resp 18 09/29/23 08:00 BP 137/65 09/29/23 08:00 Pulse Ox 94 09/29/23 08:00 O2 Del Method Room Air 09/29/23 08:00 BMI result Body Mass Index 21.9 Appearing in no acute distress lung sounds exp wheezing heart regular rate rhythm, clear S1, S2 positive bowel sounds, abdomen is soft, nontender neuro patient is alert x3, no focal deficits Objective Data Active Medications Acetaminophen (Acetaminophen 325 Mg Tablet) 650 mg PO Q6H PRN PRN Reason: Pain, Mild (Pain Scale 1-3) Albuterol/Ipratropium (Albuterol/Iprat 2.5/0.5mg 3 Ml Ampul.Neb) 3 ml INHALE RQ4H WHILE AWAKE [facility] Last Admin: 09/29/23 07:34 Dose: 3 ml Documented By: HAWA Albuterol/Ipratropium (Albuterol/Iprat 2.5/0.5mg 3 Ml Ampul.Neb) 3 ml INHALE Q4H PRN PRN Reason: Wheezing Aspirin (Aspirin Enteric Coated 81 Mg Tablet.Dr) 81 mg PO DAILY [facility] Last Admin: 09/29/23 08:10 Dose: 81 mg Documented By: PATY Dextrose (Dextrose 50 % 25 Gm/50 Ml Syringe) 25 gm IVPUSH Q15M PRN; Protocol PRN Reason: per Hypoglycemia Standing Ord. Diphenhydramine HCl (Diphenhydramine Hcl 25 Mg Capsule) 12.5 mg PO Q6H PRN PRN Reason: Itching Last Admin: 09/28/23 18:25 Dose: 12.5 mg Documented By: PATY Enoxaparin Sodium (Enoxaparin Sodium 40 Mg/0.4 Ml Syringe) 40 mg SUBCUT Q24H [facility] Last Admin: 09/28/23 20:02 Dose: 40 mg Documented By: RICHIE Famotidine (Famotidine 20 Mg Tablet) 20 mg PO BEDTIME [facility] Last Admin: 09/28/23 20:03 Dose: 20 mg Documented By: RICHIE Glucose (Glucose Gel 15 Gm Gel..Gram.) 15 gm PO Q15M PRN; Protocol PRN Reason: per Hypoglycemia Standing Ord. Guaifenesin (Guaifenesin La 600 Mg Tab.Er.12h) 600 mg PO BID [facility] Last Admin: 09/29/23 09:41 Dose: 600 mg Documented By: PATY Guaifenesin/Codeine Phosphate (Guaifen/Codeine Sf 200/20/10ml 10 Ml Liquid) 5 ml PO Q6H PRN PRN Reason: Cough Azithromycin 500 mg/ Sodium (Chloride) 250 mls @ 125 mls/hr IV Q24H [facility] Last Infusion: 09/29/23 00:16 Dose: Infused Documented By: RICHIE Doxycycline Hyclate 100 mg/ (Sodium Chloride) 250 mls @ 166.67 mls/hr IV BID [facility] Insulin Glargine (Insulin Glargine,Hum.Rec.Anlog 100 Unit/Ml 10 Ml Vial) 15 unit SUBCUT BEDTIME [facility] Last Admin: 09/28/23 20:28 Dose: 15 unit Documented By: RICHIE Insulin Human Lispro (Insulin Lispro 100 Unit/Ml 3 Ml Vial) 0 unit SUBCUT QIDACHS [facility]; Protocol Last Admin: 09/29/23 07:39 Dose: Not Given Documented By: PATY Non-Admin Reason: No Insulin Coverage Letrozole (Letrozole 2.5 Mg Tablet) 2.5 mg PO DAILY [facility] Last Admin: 09/29/23 08:14 Dose: 2.5 mg Documented By: PATY Melatonin (Melatonin 3 Mg Tablet) 6 mg PO BEDTIME PRN PRN Reason: Insomnia Methylprednisolone Sodium Succinate (Methylprednisolone Sod Succ 40 Mg/Ml Vial) 40 mg IVPUSH Q12H [facility] Last Admin: 09/29/23 08:14 Dose: Not Given Documented By: PATY Non-Admin Reason: Physician Held Med Morphine Sulfate (Morphine Sulfate Immed Release 15 Mg Tablet) 15 mg PO Q6H PRN PRN Reason: Pain, Severe (Pain Scale 7-10) Last Admin: 09/29/23 08:13 Dose: 15 mg Documented By: PATY Nicotine (Nicotine 14 Mg Patch.Td24) 14 mg TRANSDERMA DAILY [facility] Last Admin: 09/29/23 08:16 Dose: Not Given Documented By: PATY Non-Admin Reason: Patient Refused Omeprazole (Omeprazole 20 Mg Clarence.) 20 mg PO BID@4233,1079 [facility] Last Admin: 09/29/23 05:46 Dose: 20 mg Documented By: RICHIE Ondansetron HCl (Ondansetron Hcl 4 Mg/2 Ml Vial) 4 mg IVPUSH Q8H PRN PRN Reason: Nausea and Vomiting Prednisone (Prednisone 20 Mg Tablet) 40 mg PO DAILY [facility] Last Admin: 09/29/23 09:41 Dose: 40 mg Documented By: PATY Pregabalin (Pregabalin 200 Mg Capsule) 200 mg PO BID [facility] Last Admin: 09/29/23 08:10 Dose: 200 mg Documented By: PATY Sodium Chloride (0.9 % Sodium Chloride Flush 3 Ml Syringe) 3 ml IVFLUSH QSHIFT [facility] Last Admin: 09/29/23 08:12 Dose: 3 ml Documented By: PATY Trazodone HCl (Trazodone Hcl 100 Mg Tablet) 100 mg PO BEDTIME [facility] Last Admin: 09/28/23 20:18 Dose: 100 mg Documented By: RICHIE Labs 09/28/23 06:27 09/29/23 06:58 Labs: Laboratory Results - last 24 hr 09/27/23 09/28/23 09/28/23 18:39 11:07 11:45 Hold Purple Top Anion Gap Estim Creat Clear Calc Estimated GFR POC Glucose 126 H Random Glucose Calcium Respiratory Panel Seaman Cancelled See Note Adenovirus (Rapid PCR) Cancelled Not Detected B.pert (TEM-PCR) Cancelled Not Detected B.parapertussis DNA PCR Cancelled Not Detected C. pneumoniae DNA (PCR) Cancelled Not Detected Coronavirus OC43 (PCR) Cancelled Not Detected Coronavirus HKU1 (PCR) Cancelled Not Detected Coronavirus 229E (PCR) Cancelled Not Detected Coronavirus NL63 (PCR) Cancelled Not Detected Human Metapneumovir PCR Cancelled Not Detected Influenza A (RT-PCR) Cancelled Not Detected Influenza B (RT-PCR) Cancelled Not Detected M. pneumoniae (PCR) Cancelled Not Detected Parainfluenza 1 (PCR) Cancelled Not Detected Parainfluenza 2 (PCR) Cancelled Not Detected Parainfluenza 3 (PCR) Cancelled Detected A Parainfluenza 4 (PCR) Cancelled Not Detected RSV (PCR) Cancelled Not Detected Entero/Rhino (PCR) Cancelled Not Detected SARS-CoV-2 RNA (RT-PCR) Cancelled Not Detected 09/28/23 09/28/23 09/29/23 15:57 20:24 06:58 Hold Purple Top SEE NOTE Anion Gap 12 Estim Creat Clear Calc 51.5 Estimated GFR > 60 POC Glucose 165 H 112 Random Glucose 124 H Calcium 9.5 D Respiratory Panel Seaman Adenovirus (Rapid PCR) B.pert (TEM-PCR) B.parapertussis DNA PCR C. pneumoniae DNA (PCR) Coronavirus OC43 (PCR) Coronavirus HKU1 (PCR) Coronavirus 229E (PCR) Coronavirus NL63 (PCR) Human Metapneumovir PCR Influenza A (RT-PCR) Influenza B (RT-PCR) M. pneumoniae (PCR) Parainfluenza 1 (PCR) Parainfluenza 2 (PCR) Parainfluenza 3 (PCR) Parainfluenza 4 (PCR) RSV (PCR) Entero/Rhino (PCR) SARS-CoV-2 RNA (RT-PCR) 09/29/23 07:33 Hold Purple Top Anion Gap Estim Creat Clear Calc Estimated GFR POC Glucose 110 Random Glucose Calcium Respiratory Panel Seaman Adenovirus (Rapid PCR) B.pert (TEM-PCR) B.parapertussis DNA PCR C. pneumoniae DNA (PCR) Coronavirus OC43 (PCR) Coronavirus HKU1 (PCR) Coronavirus 229E (PCR) Coronavirus NL63 (PCR) Human Metapneumovir PCR Influenza A (RT-PCR) Influenza B (RT-PCR) M. pneumoniae (PCR) Parainfluenza 1 (PCR) Parainfluenza 2 (PCR) Parainfluenza 3 (PCR) Parainfluenza 4 (PCR) RSV (PCR) Entero/Rhino (PCR) SARS-CoV-2 RNA (RT-PCR) Assessment and Plan (1) Acute respiratory distress: Status: Acute Plan This is a 63-year-old female with pertinent history of asthma/COPD overlap syndrome not on home oxygen, tobacco use disorder, insulin-dependent diabetes mellitus, gastroesophageal reflux disease, mood disorder, CAD status post PCI who presents to the emergency department for evaluation of dyspnea. Acute respiratory distress due to acute exacerbation of asthma/COPD overlap syndrome systemic oral steroids, Scheduled and p.r.n. DuoNebs. doxycycline robitussin with codeine for severe cough Viral panel> parainfluenza 3 supplemental oxygen as needed Hypokalemia Repleted and resolved Insulin-dependent diabetes mellitus ss, ada diet Tobacco use disorder Counseled regarding cessation. Offered nicotine patch Gastroesophageal reflux disease On PPI Mood disorder Continue home mood stabilizers Coronary artery disease Continue antiplatelet agent Chronic pain Morphine DVT prophylaxis: Lovenox Attending Dr. Messina full code continued hospitalization for treatment of COPD requiring scheduled respiratory treatments and IV steroids that could not be done at a less acute setting Quality Stroke Does the patient have a stroke diagnosis?: No VTE Prior VTE?: No VTE Risk Level:: Medical - moderate - high VTE Device Contraindication: Treatment Not Indicated VTE Drug Contraindication: N/A - Med Ordered
[2023-09-29] MEDS: Doxycycline Hyclate 100 MG in 0.9 % Sodium Chloride 250 ML 166.67 MG IV ×2 (11:10→21:21)
[2023-09-29 11:50] LABS: Glucose, Whole Blood 94 mg/dL (60-115)
[2023-09-29] MEDS: ondansetron HCL 4 MG/2 ML VIAL IVPUSH (16:14)
[2023-09-29 16:24] LABS: Glucose, Whole Blood 170 mg/dL (60-115)
[2023-09-29] MEDS: Insulin Lispro 100 UNIT/ML 3 ML VIAL SUBCUT ×2 (17:13→21:20)
[2023-09-29] MEDS: guaiFEN/Codeine SF 200/20/10ML 10 ML LIQUID 5 ML PO (17:14)
[2023-09-29 20:28] LABS: Glucose, Whole Blood 212 mg/dL (60-115)
[2023-09-29] MEDS: Enoxaparin Sodium 40 MG/0.4 ML SYRINGE SUBCUT (21:20)
[2023-09-29] MEDS: Insulin Glargine,Hum.rec.anlog 100 UNIT/ML 10 ML VIAL 15 UNIT SUBCUT (21:21)
[2023-09-29] MEDS: Famotidine 20 MG TABLET PO (21:21)
[2023-09-29] MEDS: traZODone HCL 100 MG TABLET PO (21:22)
[2023-09-29] MEDS: methylPREDNISolone Sod Succ 40 MG/ML VIAL IVPUSH (22:02)
[2023-09-29] MEDS: diphenhydrAMINE HCL 50 MG/ML VIAL IVPUSH (22:02)
[2023-09-30 03:35] VITALS: BP 104/59; PULSE 95; RESP 18; TEMP 36.4; O2SAT 93
[2023-09-30] MEDS: Omeprazole 20 MG CAPSULE.DR PO (05:44)
[2023-09-30 07:21] VITALS: BP 131/77; PULSE 81; RESP 20; TEMP 36.9; O2SAT 93
[2023-09-30 07:26] VITALS: O2SAT 94
[2023-09-30] MEDS: Albuterol/Iprat 2.5/0.5MG 3 ML AMPUL.NEB INHALE (07:39)
[2023-09-30] MEDS: Aspirin Enteric Coated 81 MG TABLET.DR PO (07:44)
[2023-09-30] MEDS: Letrozole 2.5 MG TABLET PO (07:44)
[2023-09-30] MEDS: Morphine Sulfate Immed Release 15 MG TABLET PO (07:46)
[2023-09-30] MEDS: 0.9 % Sodium Chloride Flush 3 ML SYRINGE IVFLUSH (07:51)
[2023-09-30 08:23] LABS: Glucose, Whole Blood 130 mg/dL (60-115)
--- NOTE | 2023-09-30 08:45 | PM.DS ---
DS: Providers Provider Date of Service: 09/30/23 Date of admission: 09/27/23 19:10 Primary care physician: Adela Wasserman MD DS: Diagnosis Discharge Diagnosis (1) Acute respiratory distress: Status: Acute DS: Summary Hospital Course Hospital Course: This is a 63-year-old female with pertinent history of asthma/COPD overlap syndrome not on home oxygen, tobacco use disorder, insulin-dependent diabetes mellitus, gastroesophageal reflux disease, mood disorder, CAD status post PCI who presents to the emergency department for evaluation of dyspnea. Patient states started 1 day prior to presentation. She presented to the ER on 09/26 and was discharged home with p.o. prednisone. Patient states her symptoms did not improve and she continued to have dyspnea, worse with exertion and wheezing. Also has been having cough with intermittent sputum production. No fever, chills, chest discomfort, palpitations, nausea, vomiting, abdominal pain, changes in urinary or bowel habits. She continues to smoke cigarettes. In the emergency department, patient continued to have wheezing despite DuoNeb treatments. 63-year-old woman treated for acute respiratory distress secondary to acute asthma / COPD exacerbation. She was treated with systemic steroids including Solu-Medrol and scheduled DuoNebs along with azithromycin and then doxycycline. Robitussin with codeine did help for severe cough. Viral panel showed parainfluenza 3. She was treated with some supplemental oxygen but does not require any oxygen on discharge. Her ambulatory oxygen saturation was 93% on room air. Plan is for patient to continue prednisone taper and then resume her normal daily prednisone dose. Patient does follow closely with pulmonology as outpatient so she can continue to do that. Will send home with 3 more days of doxycycline. Diabetes mellitus type 2. Continue home medications Tobacco use disorder. Counseled on the importance of tobacco cessation as this may improve symptoms and lessen exacerbations. Patient stated understanding. GERD. Continue PPI Mental health. Continue medications Coronary artery disease. Continue antiplatelet agents Chronic pain. Continue medications Time Attestation Discharge coordination time: Greater than 30 minutes Quality: Safe Use of Opioids Does Pt have an Active Cancer Diagnosis on the Problem List?: No Quality: Stroke Does the patient have a stroke diagnosis?: No Physical Exam Vital Signs: Vital Signs: Last Vital Signs Temp 98.5 F 09/30/23 07:21 Pulse 81 09/30/23 07:21 Resp 20 09/30/23 07:21 BP 131/77 09/30/23 07:21 Pulse Ox 93 09/30/23 07:21 O2 Del Method Room Air 09/30/23 07:21 BMI result Body Mass Index 21.9 Appearing in no acute distress head is normocephalic atraumatic eyes pupils are PERRLA sclera is anicteric mouth throat mucous membranes are intact and moist neck is supple no lymphadenopathy, no JVD noted lung sounds mild expiratory wheezing heart regular rate rhythm, clear S1, S2 positive bowel sounds, abdomen is soft, nontender neuro patient is alert x3, no focal deficits DS: Data Data Completed and Pending Completed studies during hospitalization [Text1]: Procedures Excision of Sigmoid Colon, Via Natural or Artificial Opening Endoscopic, Diagnostic (01/23/23) Labs on day of discharge: Laboratory Results - last 24 hr 09/29/23 09/29/23 09/29/23 11:21 16:16 20:17 POC Glucose 94 170 H 212 H 09/30/23 07:25 POC Glucose 130 H Discharge Plan Discharge Anticipated Discharge Date/Time: 09/30/23 08:40 Patient Disposition: Home, Self-Care Discharge Diagnosis: asthma/COPD exacerbation Referrals: Adela Gipson MD [Primary Care Provider] - 1 Week Discharge Medications: New doxycycline monohydrate 100 mg Capsule 100 mg PO BID Qty: 6 0RF prednisone 10 mg tablet See Taper PO DIRECTED Qty: 30 0RF Taper: Prednisone 40 mg daily for 3 Days and 0 Hour 30 mg daily for 3 Days and 0 Hour 20 mg daily for 3 Days and 0 Hour 10 mg daily for 3 Days and 0 Hour Rx Instructions: see taper instructions Continued (DME) pen needle, diabetic [Comfort EZ Pen [place]] 31 gauge x 5/16 needle See Rx Instructions .ROUTE .MEDSUPPLY Qty: 200 11RF Rx Instructions: Use 1 pen needle 6 times a day (DME) lancets [FreeStyle Lancets] 28 gauge misc See Rx Instructions .Route Qty: 100 3RF Rx Instructions: Use 1 lancet once a day budesonide 0.5 mg/2 mL suspension for nebulization 0.25 mg inhalation BID 30 Days Qty: 60 3RF (DME) walker Misc See Rx Instructions .Route Qty: 1 0RF Rx Instructions: with seat letrozole 2.5 mg Tablet 2.5 mg PO DAILY Qty: 90 3RF aspirin 81 mg tablet,delayed release (DR/EC) 81 mg PO DAILY 90 Days Qty: 90 1RF ipratropium bromide 0.02 % solution 2.5 ml inhalation Q6H PRN (Reason: shortness of breath or wheezing) Qty: 150 3RF prednisone 5 mg tablet 5 mg PO DAILY 30 Days Qty: 30 3RF pregabalin [Lyrica] 200 mg capsule 200 mg PO BID Qty: 60 5RF levalbuterol tartrate 45 mcg/actuation HFA aerosol inhaler 2 puff inhalation Q4-6H PRN (Reason: shortness of breath) 30 Days Qty: 15 3RF trazodone 100 mg tablet 100 mg PO BEDTIME 90 Days Qty: 90 0RF ondansetron 4 mg tablet,disintegrating 4 mg PO Q6H PRN (Reason: nausea and vomiting) Qty: 14 0RF morphine 15 mg tablet 15 mg PO Q8H PRN (Reason: pain) Qty: 15 0RF Rx Instructions: Partial Fill upon patient request. mesalamine 1.2 gram tablet,delayed release (DR/EC) 2.4 g PO DAILY pantoprazole 40 mg tablet,delayed release (DR/EC) 40 mg PO BID@0630,1630 Trulicity 1.5 mg/0.5 mL pen injector 1.5 mg subcut TH@0900 famotidine 20 mg tablet 20 mg PO BEDTIME 90 Days Qty: 90 1RF (DME) FreeStyle Lite Strips Strip MISCELLANEOUS DAILY Qty: 100 1RF Rx Instructions: Use 1 test strip three times a day albuterol sulfate 90 mcg/actuation HFA aerosol inhaler 2 inh inhalation Q4H PRN (Reason: Shortness Of Breath Or Wheezing) Discharge Orders: Discharge Order (Routine); Ordered 09/30/23 Ordered By: Chika Carmona Diet: Advance to usual diet Activity on Discharge: As tolerated Stand Alone Forms: Patient Portal Discharge page Care Plan Goals: It is important for you to quit smoking cigarettes, find community supports that will help you to be successful in this Complete prednisone taper and then continue with your home does Health Concerns: asthma/COPD exacerbation Plan of Treatment: Follow-up with primary care provider as needed Follow-up with order entry representative as needed Take all medications as prescribed Assessment: see discharge summary Patient Instructions: How to Stop Smoking (DC), Cigarette Smoking and Your Health (GEN)
--- NOTE | 2023-09-30 08:50 | MHC.IC ---
Patient positive for PARAINFLUENZA 3. Please wear mask, eye gear and excellent hand hygiene.
--- NOTE | 2023-09-30 08:55 | MHC.CM.PN ---
Pt has been medically cleared for DC, her famiy will bring her home, no services required.
[2023-09-30] MEDS: predniSONE 20 MG TABLET 40 MG PO (10:20)
[2023-09-30] MEDS: Doxycycline Monohydrate 100 MG CAPSULE PO (10:20)
[2023-09-30] MEDS: Pregabalin 200 MG CAPSULE PO (10:20)
[2023-09-30] MEDS: guaiFENesin LA 600 MG TAB.ER.12H PO (10:22)
== END 2023-09-30 10:29 | disposition home or self-care (01) ==
LOC: HO.ED 19:26 → HO.EDOVER 20:30 → HO.IMC 21:45
PROVIDERS: Admitting Provider Student in an Organized Health Care Education/Training Program; Emergency Provider Emergency Medicine; PCP Internal Medicine; Visit Provider Nurse Practitioner Acute Care
DX: J44.1 Chronic obstructive pulmonary disease with (acute) exacerbation (principal); R06.00 Dyspnea, unspecified; E87.6 Hypokalemia; E11.9 Type 2 diabetes mellitus without complications; K21.9 Gastro-esophageal reflux disease without esophagitis; I25.10 Atherosclerotic heart disease of native coronary artery without angina pectoris; F39 Unspecified mood [affective] disorder; G89.29 Other chronic pain; R05.9 Cough, unspecified; I10 Essential (primary) hypertension; E78.5 Hyperlipidemia, unspecified; Z79.4 Long term (current) use of insulin; Z11.52 Encounter for screening for COVID-19
CPT/HCPCS: 36415; 71045; 80048; 80076; 82803; 82947; 83735; 84484; 85025; 87502; 87633; 87635; 93005; 94640; 96365; 96366; 96367; 96372; 96375; 96376; 99222; 99285; J0456; J1200; J1650; J2405; J2920; J3010; J3475

== ENCOUNTER → 2023-09-27 18:00 | Outpatient (BNV) | payer MEDICARE, MEDICAID, SELFPAY ==
[2023-09-19 08:39] VITALS: BP 96/60; BP 96/66; BMI 22.5
== END ==
PROVIDERS: Emergency Provider Emergency Medicine; PCP Internal Medicine; Visit Provider Student in an Organized Health Care Education/Training Program
DX: R06.03 Acute respiratory distress (principal)
CPT/HCPCS: 99222; 99232; 99239

== ENCOUNTER 2023-10-02 13:23 | Outpatient (AMB) | payer MEDICARE, MEDICAID, SELFPAY ==
[2023-10-02 13:27] VITALS: BP 132/84; PULSE 115; O2SAT 95; BMI 22.4
--- NOTE | 2023-10-02 13:27 | A.OFFPC_ITS ---
Vital Signs 10/02/23 13:27 Height 4 ft 10 in Weight 107 lb BMI 22.4 BP 132/84 Blood Pressure Location Lt brachial Position Sitting Pulse 115 H Pulse Source Pulse Oximeter Pulse Oximetry (%) 95 Oxygen Delivery Method Room Air Intake Visit Reasons: [facility] ED- 09/26 asthmaticus Intake Note: Patient here for HDF from [facility] disch 09/26 Asthmaticus Remote Advisor Required: No Accompanied by: Self / Same As Patient Allergies dog dander [DOGS] Allergy (Intermediate, Verified 10/02/23 13:41) Respiratory distress shellfish derived Allergy (Intermediate, Verified 10/02/23 13:41) Hives methylprednisolone Allergy (Verified 10/02/23 13:41) Rash etanercept [From Enbrel] Adverse Reaction (Intermediate, Verified 10/02/23 13:41) Facial Swelling ibuprofen [Ibuprofen] Adverse Reaction (Intermediate, Verified 10/02/23 13:41) STOMACH UPSET, abdominal pain, nausea and vomiting metformin Adverse Reaction (Intermediate, Verified 10/02/23 13:41) Diarrhea metronidazole [From FLAGYL] Adverse Reaction (Intermediate, Verified 10/02/23 13:41) Diarrhea prednisone Adverse Reaction (Intermediate, Verified 10/02/23 13:41) hallucinations, higher than 20 Medication List - Last Reconciled 10/02/23 by Adela Wasserman MD albuterol sulfate 90 mcg/actuation 2 inhalations inhalation Q4H PRN aspirin 81 mg PO DAILY 90 days blood sugar diagnostic (FreeStyle Lite Strips) Use 1 test strip three times a day budesonide 0.25 mg inhalation BID 30 days doxycycline monohydrate 100 mg PO BID dulaglutide (Trulicity) 1.5 mg subcut TH@0900 famotidine 20 mg PO BEDTIME 90 days ipratropium bromide 2.5 mL inhalation Q6H PRN lancets (FreeStyle Lancets) Use 1 lancet once a day letrozole 2.5 mg PO DAILY levalbuterol tartrate 45 mcg/actuation 2 puffs inhalation Q4-6H PRN 30 days mesalamine 2.4 grams PO DAILY morphine 15 mg PO Q8H PRN ondansetron 4 mg PO Q6H PRN pantoprazole 40 mg PO BID@0630,1630 pen needle, diabetic (Comfort EZ Pen [place]) Use 1 pen needle 6 times a day prednisone See Taper mg PO DIRECTED prednisone 5 mg PO DAILY 30 days pregabalin (Lyrica) 200 mg PO BID trazodone 100 mg PO BEDTIME 90 days walker with seat Tobacco use date assessed: 08/30/23 Dental Screening Dental Screen Date: 10/02/23 Did you have a dental visit in the last 12 months?: No Did you have a dental problem in the last 6 months where you did not have access to dental care?: No Was dental information given to patient?: Patient has dentist HPI HPI Comments History of Present Illness Details This is a 63-year-old female with diabetes mellitus type 2, asthma-COPD overlap syndrome, colitis, rheumatoid arthritis and history of breast cancer that comes as a hospital discharge follow-up with discharge date 09/30/2023 due to COPD exacerbation. Patient was complaining of shortness of breath associated with wheezing and cough. No fever. Some diarrhea. She did stop smoking after being discharged to days ago. She was treated with systemic steroids along with see try max and doxycycline. This had oxygen while hospitalized which was not require when she wish discharge. Chest x-ray was normal. Had leukocytosis that resolved. Last A1c was within normal limits. She would like a 2nd opinion for her pulmonology. On mesalamine for colitis but still has diarrhea and this is follow by Gastroenterology. She also would like a 2nd opinion for her for Rheumatology for her rheumatoid arthritis which she is still complains of diffuse joint pain. On letrozole for her breast cancer which was diagnosed few years ago. Still complains of shortness of breath, wheezing and coughing. Currently on prednisone and doxycycline. Was advised that if shortness of breath this severe to go back to ER. [facility] Medical History (Updated 10/02/23 @ 14:12 by Adela Wasserman MD) Hospital discharge follow-up Tendonitis of ankle or foot Colitis Cough Anxiety CAD (coronary artery disease) HLD (hyperlipidemia) HTN (hypertension) T2DM (type 2 diabetes mellitus) COPD exacerbation Hyperkalemia Atherosclerotic cardiovascular disease GERD (gastroesophageal reflux disease) CVA (cerebral vascular accident) Breast pain, right Rash Bloody diarrhea PAD (peripheral artery disease) Hyperlipidemia LDL goal <100 COPD (chronic obstructive pulmonary disease) Infiltrating ductal carcinoma of left breast, stage 2 Insomnia Dyslipidemia Bipolar 1 disorder, depressed Cough Restrictive airway disease Hypothyroid IDDM (insulin dependent diabetes mellitus) Vitamin D deficiency Osteoporosis Hyperparathyroidism Thyroid nodule Depression Fibromyalgia Seropositive rheumatoid arthritis Reactive airways dysfunction syndrome Allergic rhinitis Irritable bowel Anxiety Bronchial asthma Diabetes type 2, uncontrolled Hypertension Surgical History Hx of sigmoidoscopy History of bronchoscopy Hx of endoscopy H/O cardiac catheterization History of lumpectomy of left breast History of pubovaginal sling History of esophagogastroduodenoscopy (EGD) History of tubal ligation History of colonoscopy History of bunionectomy of both great toes H/O: hysterectomy Family History Mother Diabetes HTN (hypertension) Uterus cancer Malignant tumor of head Breast cancer Father Diabetes HTN (hypertension) CVD (cardiovascular disease) Heart problem Maternal Aunt Breast cancer Brother Myocardial infarction S/P CABG x 4 Family/Other FH: mental illness Family/Other Lung cancer Other Mental health disorder Social History Household Members: Family Household Members Other:: sister Housing: House Are you a primary doggy daycare activities director to a significant other at home: No Do you presently have visiting nurse or other home services: Yes (sister is regional loss prevention manager) Unable to assess alcohol history related to: Unknown Alcohol intake: never Patient Tobacco Use Status: Current everyday Tobacco user Tobacco use type: Cigarette Cigarette Packs Per Day: 0.5 Cigarettes Per Day: 3 Years Smoked: 12 e-Cigarette/Vaping Use: Never Used Second Hand Smoke Exposure: Yes Substance Use Type: Marijuana Advance Directives Date on File: 12/22/21 service: No Current occupational status: disabled Current occupation: rt handed Cognitive needs: No Hearing needs: No Vision needs: Yes Questionnaire Thrive Questionnaire Date Thrive assessed: 09/28/23 FLAVIA-7 AMB Questionnaire FLAVIA-7 Date FLAVIA - 7 assessed: 12/17/22 Source: Developed by Drs. Hernandez Norris, Gissell Solorzano, Gilmar Szymanski and colleagues, with an educational chris from [employer]. Review of Systems Const All systems reviewed & are unremarkable except as noted in HPI and below Eyes Reports no additional complaints, Denies change in vision and Denies other visual disturbances ENT Denies change in voice, Denies nasal discharge and Denies sinus pain Card Denies chest pain at rest, Denies chest pain with activity, Denies edema, Denies irregular heart rhythm, Denies claudication, Denies dyspnea, Reports dyspnea on exertion, Denies orthopnea, Denies paroxysmal nocturnal dyspnea and Denies slow heart rate Resp Reports cough, Denies dyspnea, Reports dyspnea on exertion and Reports wheezing GI Denies abdominal pain, Denies change in bowel habits, Denies excessive flatus, Reports diarrhea, Denies nausea and Denies vomiting Denies urinary incontinence, Denies urinary hesitancy and Denies urinary urgency Musc Denies abnormal gait, Denies atrophy, Denies deformity, Reports arthralgias and Denies limited range of motion Skin/Breast Denies bleeding lesions, Denies changing lesions and Denies rash Neuro Denies abnormal gait and Denies lack of coordination Aller/Immun Reports wheezing Physical exam (Primary Care) Vital Signs: Last Vital Signs Pulse 115 H 10/02/23 13:27 BP 132/84 10/02/23 13:27 Pulse Ox 95 10/02/23 13:27 Oxygen Delivery Method Room Air 10/02/23 13:27 BMI result Body Mass Index 22.4 Tobacco/Smoking Status: Tobacco use Status Tobacco use date assessed 08/30/23 10/02/23 13:29 Patient Tobacco Use Status Current everyday Tobacco 10/02/23 13:29 Tobacco use type Cigarette 10/02/23 13:29 e-Cigarette/Vaping Use Never Used 10/02/23 13:29 Thrive Assessment: Date of Thrive Assessment Date Thrive assessed 09/28/23 10/02/23 13:29 Eyes General: appearance normal, both eyes and all related structures Eyelids: Yes eyelids normal Conjunctivae: conjunctivae normal Neck Neck: Yes normal visual inspection and Yes supple Resp Effort & Inspection: normal respiratory effort Auscultation: rhonchi and wheezes Cardio Jugular venous distension: no JVD Rate: regular rate Rhythm: regular rhythm Heart sounds: S1 normal heart sound present and S2 normal heart sound present Extrem General: Yes full ROM Office Procedures Flu Questionnaire Does the patient have a severe egg allergy?: No Immunizations flu vacc [id number] 6mos up(PF) 60 mcg(15 mcgx4)/0.5 mL IM syringe Performing Provider: Adela Wasserman MD [facility] Documented (not given) by: KENNY Coronel on 10/02/23 13:38 Reason Not Given: Patient Refused Assessment and Plan Assessment & Plan (1) Hospital discharge follow-up: Code(s): Z09 - Encounter for follow-up examination after completed treatment for conditions other than malignant neoplasm Plan: Discharge date 09/30/2023 due to COPD exacerbation. Was discharge with outpatient prednisone and doxycycline. Has not find any significant relieved. Still has shortness of breath and coughing. Was advised that if shortness of breath was severe to go back to ER. (2) T2DM (type 2 diabetes mellitus): Code(s): E11.9 - Type 2 diabetes mellitus without complications Qualifiers: Diabetes mellitus fdc insulin use: with superintendent container terminal use Diabetes mellitus complication status: with hyperglycemia Qualified Code(s): E11.65 - Type 2 diabetes mellitus with hyperglycemia; Z79.4 - [facility] (current) use of insulin Plan: Continue Trulicity. A1c goal is equal or less than 7%. (3) Breast cancer: Code(s): C50.919 - Malignant neoplasm of unspecified site of unspecified female breast Qualifiers: Breast location: unspecified site of breast Estrogen receptor status: unspecified Patient sex: female Laterality: unspecified laterality Qualified Code(s): C50.919 - Malignant neoplasm of unspecified site of unspecified female breast Plan: Continue letrozole. (4) COPD exacerbation: Comment: Patient is suffering from acute exacerbation of COPD, most likely secondary to acute bronchitis. PLAN : Chest x-ray is ordered to rule out pneumonia. TX: Prednisone 20 mg b.i.d. for 5 days. Z-Nelson with usual instruction. Will recheck her in 2 weeks. Code(s): J44.1 - Chronic obstructive pulmonary disease with (acute) exacerbation Plan: Use rescue inhaler as needed. Continue longstanding inhaler. Continue prednisone. (5) Seropositive rheumatoid arthritis: Comment: [place]: 04/2021- 06/2022- stopped due to severe COPD requiring long standing azithromycin Plaquenil: approx. 02/2021-May 2021 self stopped Enbrel: approx. 02/2021 ordered after cleared for hep A, stopped due to allergy Sulfasalazine: approx. 02/2019- 02/2021 - restarted 09/27/2022 -04/2023 stopped due to heaedache and nausea Methorexate: approx. 11/2016-12/2018 started in [facility]. Diagnosed with breast CA so methotrexate discontinued. Changed to sulfsalazine 500mg 2 tabs BID to prevent lung fibrosis as patient was receiving radiation therapy for her breast CA. Completed Radiation therapy February 2019. OnTamoxifen but had side effects so was started on Letrozole in May 2019. Xeljanz: approx. 03/2018-04/2018 Cimzia: aprrox.05/2017- did not take Humira: dates unknown Leflunomide: many years ago, then approx. 08/2020-02/2021 Diagnosed 25 years ago Code(s): M05.9 - Rheumatoid arthritis with rheumatoid factor, unspecified Plan: Referral for Rheumatology for 2nd opinion done. (6) Colitis: Code(s): K52.9 - Noninfective gastroenteritis and colitis, unspecified Plan: Continue mesalamine. Follow up with Gastroenterology. Orders: Orders Influenza [id number] Immunization Today Z23 - Encounter for immunization Comprehensive Met. Panel Today E87.6 - Hypokalemia Referrals Pulmonology Referral J45.909 - Unspecified asthma, uncomplicated Rheumatology Referral M05.9 - Rheumatoid arthritis with rheumatoid factor, unspecified Coding Level of Care Code TCM Mod MDM <= 7 Days Diagnoses Hospital discharge follow-up Z09 Type 2 diabetes mellitus with hyperglycemia, with long-term current use of insulin E11.65; Z79.4 Diabetes mellitus superintendent container terminal insulin use: with superintendent container terminal use Diabetes mellitus complication status: with hyperglycemia Malignant neoplasm of female breast, unspecified estrogen receptor status, unspecified laterality, unspecified site of breast C50.919 Breast location: unspecified site of breast Estrogen receptor status: unspecified Patient sex: female Laterality: unspecified laterality COPD exacerbation J44.1 Seropositive rheumatoid arthritis M05.9 Colitis K52.9 Time Spent (min) 29
== END 2023-10-02 14:06 | disposition home or self-care (01) ==
PROVIDERS: PCP Internal Medicine; Visit Provider Internal Medicine
DX: E11.65 Type 2 diabetes mellitus with hyperglycemia (principal); Z79.4 Long term (current) use of insulin; C50.919 Malignant neoplasm of unspecified site of unspecified female breast; J44.1 Chronic obstructive pulmonary disease with (acute) exacerbation; M05.9 Rheumatoid arthritis with rheumatoid factor, unspecified; K52.9 Noninfective gastroenteritis and colitis, unspecified; Z09 Encounter for follow-up examination after completed treatment for conditions other than malignant neoplasm
CPT/HCPCS: 99496

== ENCOUNTER 2023-10-02 14:15 | Outpatient (REF) | payer MEDICARE, MEDICAID, SELFPAY ==
[2023-10-02 15:09] LABS: Alanine Aminotransferase 12 U/L (0-31); Albumin Level 3.7 g/dL (3.5-5.0); Alkaline Phosphatase 56 U/L (39-117); Anion Gap 8 (12-20); Aspartate Amino Transferase 14 U/L (5-31); Bilirubin Total 0.2 mg/dL (0.0-1.0); Blood Urea Nitrogen 21 mg/dL (9-16); Calcium 9.5 mg/dL (8.4-10.2); Carbon Dioxide 31 mmol/L (22-29); Chloride 104 mmol/L (96-108); Estimated Glomerular Filt Rate > 60; Glucose Random 217 mg/dL (60-115); Potassium 4.3 mmol/L (3.3-5.1); Sodium 139 mmol/L (135-145); Total Protein 6.6 g/dL (6.5-8.0)
== END 2023-10-02 14:16 | disposition home or self-care (01) ==
LOC: HO.LAB 14:15
PROVIDERS: PCP Internal Medicine; Referring Provider Internal Medicine; Visit Provider Internal Medicine Medical Oncology
DX: Z13.89 Encounter for screening for other disorder (principal)
CPT/HCPCS: 36415; 80053

== ENCOUNTER 2023-10-02 14:26 | Inpatient (IN) | payer MEDICARE, MEDICAID, SELFPAY ==
[2023-10-02] VITALS (8 sets, daily range): BP systolic 104–135; BP diastolic 69–82; PULSE 87–126; RESP 16–24; TEMP 36.1–36.8; O2SAT 93–97; BMI 22.7; BMI 23.9
--- NOTE | 2023-10-02 | ECG_ITS ---
Test Reason : CHEST PAIN Blood Pressure : / mmHG Vent. Rate : 092 BPM Atrial Rate : 092 BPM P-R Int : 118 ms QRS Dur : 086 ms QT Int : 358 ms P-R-T Axes : 071 079 069 degrees QTc Int : 442 ms Normal sinus rhythm Normal ECG When compared with ECG of 02-OCT-2023 17:09, No significant change was found Referred By: Generic ED Physician Electronically Signed By:DIPTI RUIZ MD
--- NOTE | ~2023-10-02 | XR_ITS ---
EXAMINATION: XR CHEST CLINICAL INFORMATION: Shortness of breath COMPARISON: 09/27/2023 TECHNIQUE: Frontal view of the chest was obtained. FINDINGS: Heart and mediastinum within normal limits. No vascular congestion, consolidations or effusions. Right upper medial opacity appears to be superimposed on the patient. Subcentimeter density overlying the right humeral head may also be external to the patient as it has not been seen on multiple recent radiographs. XR/XR chest 1V IMPRESSION: No acute cardiopulmonary disease. Suspicion for objects external to the patient accounting for right humeral and right upper medial lung densities. Correlate clinically, repeat radiograph if necessary.
--- NOTE | ~2023-10-02 | XR_ITS ---
EXAMINATION: XR chest 2V CLINICAL INFORMATION: Reason for Exam Abnormal chest x-ray COMPARISON: 10/02/2023 TECHNIQUE: XR chest 2V Tubes and lines: None Lungs and pleura: Both lungs are clear. Heart and mediastinum: The mediastinum is within normal limits.. Bones/soft tissue: Skeletal structures included are normal for patient's age. XR/XR chest 2V IMPRESSION: No radiographic evidence of acute cardiopulmonary disease.
--- NOTE | 2023-10-02 14:46 | ED.SOB ---
HPI - SOB/Dyspnea General Chief Complaint: Dyspnea Stated Complaint: Shortness of breath Time Seen by Provider: 10/02/23 15:04 History of Present Illness HPI Narrative: this is a 63-year-old female with pertinent history of asthma / COPD overlap syndrome for history of tobacco use ( last smoke was a week ago) history of insulin-dependent DM, GERD, CAD s/p PCI presented to the ED for shortness of breath, headache, generalized weakness, and dizziness. Patient was recently admitted to the hospital on 09/26 patient returned after discharge with difficulty breathing and coughing. Related Data Home Medications Medication Instructions Recorded Confirmed albuterol sulfate 90 mcg/actuation 2 inh inhalation Q4H PRN Shortness 08/23/23 10/02/23 aerosol inhaler Of Breath Or Wheezing dulaglutide 1.5 mg/0.5 mL 1.5 mg subcut TH@0900 09/27/23 10/02/23 subcutaneous pen injector (Trulicity) mesalamine 1.2 gram tablet,delayed 2.4 g PO DAILY 09/27/23 10/02/23 release pantoprazole 40 mg tablet,delayed 40 mg PO BID@0630,1630 09/27/23 10/02/23 release Previous Rx's Medication Instructions Recorded lancets 28 gauge (FreeStyle #100 ea 06/07/22 Lancets) pen needle, diabetic 31 gauge x #200 ea 06/07/2204/02 (Comfort EZ Pen [place]) budesonide 0.5 mg/2 mL suspension 0.25 mg inhalation BID ASTHMA/COPD 01/04/23 for nebulization 30 days #60 mL walker #1 ea 02/08/23 letrozole 2.5 mg tablet 2.5 mg PO DAILY #90 tabs 02/12/23 aspirin 81 mg tablet,delayed 81 mg PO DAILY 90 days #90 tabs 06/30/23 release ipratropium bromide 0.02 % 2.5 ml inhalation Q6H PRN 07/03/23 solution for inhalation shortness of breath or wheezing #150 mL prednisone 5 mg tablet 5 mg PO DAILY for asthma 30 days 07/03/23 #30 tabs ondansetron 4 mg disintegrating 4 mg PO Q6H PRN nausea and 07/04/23 tablet vomiting #14 tabs famotidine 20 mg tablet 20 mg PO BEDTIME 90 days #90 tabs 08/09/23 pregabalin 200 mg capsule (Lyrica) 200 mg PO BID #60 caps 08/14/23 levalbuterol tartrate 45 2 puff inhalation Q4-6H PRN 08/20/23 mcg/actuation aerosol inhaler shortness of breath 30 days #15 grams morphine 15 mg immediate release 15 mg PO Q8H PRN pain #15 tabs 08/29/23 tablet blood sugar diagnostic (FreeStyle #100 ea 08/30/23 Lite Strips) trazodone 100 mg tablet 100 mg PO BEDTIME 90 days #90 tabs 09/27/23 doxycycline monohydrate 100 mg 100 mg PO BID #6 caps 09/30/23 capsule prednisone 10 mg tablet See Taper PO DIRECTED #30 tabs 09/30/23 Allergies Allergy/AdvReac Type Severity Reaction Status Date / Time dog dander [DOGS] Allergy Intermediate Respiratory Verified 10/02/23 13:41 distress shellfish derived Allergy Intermediate Hives Verified 10/02/23 13:41 methylprednisolone Allergy Rash Verified 10/02/23 13:41 etanercept [From Enbrel] AdvReac Intermediate Facial Verified 10/02/23 13:41 Swelling ibuprofen [Ibuprofen] AdvReac Intermediate STOMACH Verified 10/02/23 13:41 UPSET, abdominal pain, nausea and vomiting metformin AdvReac Intermediate Diarrhea Verified 10/02/23 13:41 metronidazole [From FLAGYL] AdvReac Intermediate Diarrhea Verified 10/02/23 13:41 prednisone AdvReac Intermediate hallucinations, Verified 10/02/23 13:41 higher than 20 Review of Systems Review of Systems: All other systems are reviewed and are negative Constitutional: Reports as per HPI and Reports no additional constitutional complaints Eyes: Reports as per HPI and Reports no additional eye complaints Reports system reviewed and no additional complaints, except as documented Cardiovascular: Reports as per HPI and Reports no additional cardiovascular complaints Respiratory: Reports as per HPI and Reports no additional respiratory complaints Gastrointestinal: Reports as per HPI and Reports no additional gastrointestinal complaints Genitourinary: Reports no additional female genitourinary complaints Musculoskeletal: Reports no additional musculoskeletal complaints Skin/Breast: Reports system reviewed and no additional complaints, except as docu Psychiatric: Reports no additional psychiatric complaints Endocrine: Reports no additional endocrine complaints Hematologic/Lymphatic: Reports no additional hematologic/lymphatic complaints Allergic/Immunologic: Reports no additional allergic/immunologic complaints Reports system reviewed and no additional complaints, except as documented and Reports Abnormal speech present [facility] Past Medical History Medical History (Updated 10/02/23 @ 20:13 by Tatiana Sánchez MD) Acute respiratory distress Hospital discharge follow-up Tendonitis of ankle or foot Colitis Cough Anxiety CAD (coronary artery disease) HLD (hyperlipidemia) HTN (hypertension) T2DM (type 2 diabetes mellitus) COPD exacerbation Hyperkalemia Atherosclerotic cardiovascular disease GERD (gastroesophageal reflux disease) CVA (cerebral vascular accident) Breast pain, right Rash Bloody diarrhea PAD (peripheral artery disease) Hyperlipidemia LDL goal <100 COPD (chronic obstructive pulmonary disease) Infiltrating ductal carcinoma of left breast, stage 2 Insomnia Dyslipidemia Bipolar 1 disorder, depressed Cough Restrictive airway disease Hypothyroid IDDM (insulin dependent diabetes mellitus) Vitamin D deficiency Osteoporosis Hyperparathyroidism Thyroid nodule Depression Fibromyalgia Seropositive rheumatoid arthritis Reactive airways dysfunction syndrome Allergic rhinitis Irritable bowel Anxiety Bronchial asthma Diabetes type 2, uncontrolled Hypertension Surgical History Hx of sigmoidoscopy History of bronchoscopy Hx of endoscopy H/O cardiac catheterization History of lumpectomy of left breast History of pubovaginal sling History of esophagogastroduodenoscopy (EGD) History of tubal ligation History of colonoscopy History of bunionectomy of both great toes H/O: hysterectomy Family History Family History Mother Diabetes HTN (hypertension) Uterus cancer Malignant tumor of head Breast cancer Father Diabetes HTN (hypertension) CVD (cardiovascular disease) Heart problem Maternal Aunt Breast cancer Brother Myocardial infarction S/P CABG x 4 Family/Other FH: mental illness Family/Other Lung cancer Other Mental health disorder Social History Social History Household Members: Family Household Members Other:: sister Housing: House Are you a primary workforce investment act career manager to a significant other at home: No Do you presently have visiting nurse or other home services: Yes (sister is ditto machine operator) Unable to assess alcohol history related to: Unknown Alcohol intake: never Patient Tobacco Use Status: Current everyday Tobacco user Tobacco use type: Cigarette Cigarette Packs Per Day: 0.5 Cigarettes Per Day: 3 Years Smoked: 12 Smoked in Last 30 Days: Yes e-Cigarette/Vaping Use: Never Used Second Hand Smoke Exposure: Yes Use of substances other than those prescribed or required for medical reasons: No Substance Use Type: Marijuana Advance Directives: Yes Advance Directives on File: Yes Advance Directives Date on File: 12/22/21 Patient : No service: No Current occupational status: disabled Current occupation: rt handed Cognitive needs: No Hearing needs: No Vision needs: Yes Physical Exam Vital Signs: Vital Signs: Last Vital Signs Temp 97.2 F 10/02/23 19:43 Pulse 87 10/02/23 19:43 Resp 16 10/02/23 19:43 BP 123/76 10/02/23 19:43 Pulse Ox 97 10/02/23 19:43 O2 Del Method Room Air 10/02/23 19:43 BMI result Body Mass Index 22.7 Vital signs have been reviewed and appear to be correct. Blood pressure elevated. Heart rate normal. Respiratory rate normal. Temperature normal. Oxygen saturation normal. Appearance: Alert. Oriented X3. No acute distress. Head: Normal external exam. Normocephalic. Atraumatic. No Raya signs noted. No raccoon eyes noted Eyes: PERRLA. EOMI. Conjunctiva and sclera normal. Eyelids normal. ENT: TM's Normal. Pharynx normal. Uvula midline. Moist mucous membranes. No trismus noted. No drooling noted. No muffled voice noted. Neck: Normal inspection. Neck supple. FROM. No adenopathy. Thyroid Normal. No meningeal signs. No neck mass noted. CVS: Normal heart rate and rhythm. Heart sound normal. No murmurs noted. Pulses normal throughout. Respiratory: No respiratory distress. Painless inspiration. Breath sounds normal. Bilateral diffuse expiratory wheezing, prolonged expiration, decreased breathing sound bilaterally, Chest nontender. No accessory muscle usage noted or decreased air movement noted. Abdomen: Soft and nontender. Bowel sounds normal in all 4 quadrants. No distention noted. No organomegaly noted. No visible injury noted. Back: No CVA tenderness. Full range of motion noted. Skin: Skin warm and dry. Normal skin color. Normal skin turgor. No rashes/lesions/lacerations noted. Extremities: No lower extremity edema. Extremities exhibit normal range of motion. Extremities nontender. Neuro: Oriented X 3. Cranial nerve exam: II-XII are grossly intact No motor deficit. No sensory deficit. Reflexes normal. Course Course Course Narrative: RME: 63-year-old female with pertinent history of asthma/COPD overlap syndrome not on home oxygen, tobacco use disorder, insulin-dependent diabetes mellitus, GERD, mood disorder, CAD status post PCI, who presents to the ED c/o continued SOB, ZHENG & dizziness since discharge. Patient was d/c'd from our facility on 09/30/23 for acute resp distress 2/2 asthma/COPD & parainfluenza 3. Patient with audible exp wheeze and cough noted, tachycardic and tachypneic EKG, Labs, CXR, COVID/FLU, lactic/Cx, ED Bronch protocol ordered Full HPI, ROS and PE to be performed by primary ED provider. Reevaluation(s) Reevaluation #1: a 63-year-old female history of asthma / COPD overlap syndrome came in with acute respiratory distress patient received a prophylactic antibiotic coverage, patient meet criteria for SIRS but not severe sepsis or septic shock lactic acidosis is secondary to albuterol use not due to septic shock. Time: 17:47 Medications Administered Discontinued Medications Generic Name Dose Route Start Last Admin Trade Name Eitanq PRN Reason Stop Dose Admin Acetaminophen 650 mg 10/02/23 18:32 10/02/23 18:43 Acetaminophen 325 Mg Tablet PO 10/02/23 18:33 650 mg ONCE ONE Administration Albuterol Sulfate 2.5 mg 10/02/23 15:11 10/02/23 15:15 Albuterol Sulfate (0.083%) 2.5 Mg/3 Ml Vial.Neb INHALE 10/02/23 15:12 2.5 mg ONCE ONE Administration Albuterol Sulfate 2.5 mg/ 0 mg 10/02/23 15:10 10/02/23 15:15 Albuterol/Ipratropium 3 ml INHALE 10/02/23 15:11 2 dose ONCE ONE Administration Diphenhydramine HCl 25 mg 10/02/23 15:26 10/02/23 15:35 Diphenhydramine Hcl 50 Mg/Ml Vial IVPUSH 10/02/23 15:27 25 mg ONCE ONE Administration Piperacillin Sod/Tazobactam 50 mls @ 100 mls/hr 10/02/23 15:10 10/02/23 16:05 Sod 3.375 gm/ Sodium Chloride IV 10/02/23 15:39 Infused ONCE ONE Infusion Azithromycin 500 mg/ Sodium 250 mls @ 125 mls/hr 10/02/23 15:10 10/02/23 17:47 Chloride IV 10/02/23 17:09 Infused ONCE ONE Infusion Sodium Chloride 1,428.81 mls @ 1,428.81 mls/hr 10/02/23 16:12 10/02/23 19:39 Ns 30 ml/kg infuse over 1 hr (1428.81 ml) 10/02/23 17:11 Infused IV Infusion .Q1H STA Methylprednisolone Sodium Succinate 125 mg 10/02/23 15:10 10/02/23 15:36 Methylprednisolone Sod Succ 125 Mg/2 Ml Vial IVPUSH 10/02/23 15:11 125 mg ONCE ONE Administration Morphine Sulfate 1 mg 10/02/23 15:26 10/02/23 15:36 Morphine Sulfate 2 Mg/Ml Cartridge IVPUSH 10/02/23 15:27 1 mg ONCE ONE Administration Protocol Medical Decision Making Differential Diagnosis Differential Diagnoses: The differential diagnosis associated with the presentation includes ( Pneumonia, pneumothorax, pleural effusion, COPD, sepsis, electrolyte abnormality, severe anemia.) Admission/Observation Consideration of admission/observation: Escalation of care including admission/observation considered Consult Healthcare Provider Management of the patient was discussed with: Hospitalist (Dr. Perez) Lab Data MDM Lab Attestation statement: I reviewed the patient's lab results. 10/02/23 15:50 10/02/23 15:50 Labs: Lab Results 10/02/23 10/02/23 10/02/23 Range/Units 15:23 15:50 15:59 WBC 11.4 H (4.8-10.8) X10*3/uL RBC 4.64 (4.20-5.50) X10*6/uL Hgb 12.6 (12.0-16.0) g/dl Hct 38.8 (37.0-47.0) % MCV 83.6 (80.0-98.0) fL MCH 27.2 (27.0-33.0) pg MCHC 32.5 (31.0-35.0) g/dl RDW 13.6 (11.0-16.0) % Plt Count 340 (160-400) X10*3/uL MPV 10.4 (9.4-12.3) fL Immature Gran % (Auto) 2.2 H (0.0-0.4) % Neut % (Auto) 78.9 H (45-73) % Lymph % (Auto) 17.5 L (20-40) % [place] % (Auto) 1.2 L (2-11) % Eos % (Auto) 0.0 (0-4) % Baso % (Auto) 0.2 (0-2) % Lymph # (Auto) 2.0 (1.2-4.9) X10*3/uL [place] # (Auto) 0.1 (0.1-1.2) X10*3/uL Eos # (Auto) 0.0 (0.0-0.4) X10*3/uL Baso # (Auto) 0.0 (0.0-0.2) X10*3/uL Abs Immat Gran (auto) 0.25 H (0.00-0.03) X10*3/uL Absolute Neuts (auto) 9.0 H (2.0-8.3) x10*3/uL Absolute Nucleated RBC 0.000 (0.0-0.012) X10*3/uL Nucleated RBC % (auto) 0.0 (0.0-0.2) /100WBC PT 13.6 H (11.1-13.3) SEC INR 1.1 (0.9-1.1) Sodium 136 (135-145) mmol/L Potassium 4.0 (3.3-5.1) mmol/L Chloride 103 (96-108) mmol/L Carbon Dioxide 22 (22-29) mmol/L Anion Gap 15 (12-20) BUN 20 H (9-16) mg/dL Creatinine 0.99 (0.5-1.4) mg/dL Estim Creat Clear Calc 39.7 Estimated GFR 57 POC Glucose 334 H (60-115) mg/dL Random Glucose 372 H* (60-115) mg/dL Lactic Acid 5.0 H* (0.5-2.0) mmol/L Calcium 8.9 D (8.4-10.2) mg/dL Magnesium 1.6 (1.6-2.6) mg/dL Total Bilirubin 0.2 (0.0-1.0) mg/dL Direct Bilirubin < 0.2 (0.0-0.5) mg/dL AST 14 (5-31) U/L ALT 14 (0-31) U/L Alkaline Phosphatase 62 (39-117) U/L Troponin I High Sens 3.2 (<3.5-17.0) ng/L B-Natriuretic Peptide 19 (<100) pg/mL Total Protein 6.2 L (6.5-8.0) g/dL Albumin 3.4 L (3.5-5.0) g/dL Procalcitonin 0.02 ng/mL Urine Color Urine Appearance Urine pH (5.0-9.0) Ur Specific [place] (1.005-1.025) Urine Protein (Neg-Trace) mg/dL Urine Glucose (UA) (Negative) mg/dL Urine Ketones (Negative) mg/dL Urine Blood (Negative) Urine Nitrite (Negative) Ur Leukocyte Esterase (Negative) Urine RBC (0-2) /HPF Urine WBC (0-5) /HPF Ur Squamous Epith Cells (0-2) /HPF Urine Bacteria (None Seen) Hyaline Casts (0-2) /LPF COVID-19 (KRISS) Negative (Negative) COVID-19 Clin Com See Note Influenza Type A (CEDRIC) Negative (Negative) Influenza Type B (CEDRIC) Negative (Negative) Influenza A & B Note See Note 10/02/23 Range/Units 16:11 WBC (4.8-10.8) X10*3/uL RBC (4.20-5.50) X10*6/uL Hgb (12.0-16.0) g/dl Hct (37.0-47.0) % MCV (80.0-98.0) fL MCH (27.0-33.0) pg MCHC (31.0-35.0) g/dl RDW (11.0-16.0) % Plt Count (160-400) X10*3/uL MPV (9.4-12.3) fL Immature Gran % (Auto) (0.0-0.4) % Neut % (Auto) (45-73) % Lymph % (Auto) (20-40) % [place] % (Auto) (2-11) % Eos % (Auto) (0-4) % Baso % (Auto) (0-2) % Lymph # (Auto) (1.2-4.9) X10*3/uL [place] # (Auto) (0.1-1.2) X10*3/uL Eos # (Auto) (0.0-0.4) X10*3/uL Baso # (Auto) (0.0-0.2) X10*3/uL Abs Immat Gran (auto) (0.00-0.03) X10*3/uL Absolute Neuts (auto) (2.0-8.3) x10*3/uL Absolute Nucleated RBC (0.0-0.012) X10*3/uL Nucleated RBC % (auto) (0.0-0.2) /100WBC PT (11.1-13.3) SEC INR (0.9-1.1) Sodium (135-145) mmol/L Potassium (3.3-5.1) mmol/L Chloride (96-108) mmol/L Carbon Dioxide (22-29) mmol/L Anion Gap (12-20) BUN (9-16) mg/dL Creatinine (0.5-1.4) mg/dL Estim Creat Clear Calc Estimated GFR POC Glucose (60-115) mg/dL Random Glucose (60-115) mg/dL Lactic Acid (0.5-2.0) mmol/L Calcium (8.4-10.2) mg/dL Magnesium (1.6-2.6) mg/dL Total Bilirubin (0.0-1.0) mg/dL Direct Bilirubin (0.0-0.5) mg/dL AST (5-31) U/L ALT (0-31) U/L Alkaline Phosphatase (39-117) U/L Troponin I High Sens (<3.5-17.0) ng/L B-Natriuretic Peptide (<100) pg/mL Total Protein (6.5-8.0) g/dL Albumin (3.5-5.0) g/dL Procalcitonin ng/mL Urine Color Yellow Urine Appearance Clear Urine pH 6.5 (5.0-9.0) Ur Specific [place] 1.025 (1.005-1.025) Urine Protein Negative (Neg-Trace) mg/dL Urine Glucose (UA) >=1000 H (Negative) mg/dL Urine Ketones Negative (Negative) mg/dL Urine Blood Negative (Negative) Urine Nitrite Negative (Negative) Ur Leukocyte Esterase Negative (Negative) Urine RBC 0-2 (0-2) /HPF Urine WBC 0-5 (0-5) /HPF Ur Squamous Epith Cells 0-2 (0-2) /HPF Urine Bacteria None Seen (None Seen) Hyaline Casts 0-2 (0-2) /LPF COVID-19 (KRISS) (Negative) COVID-19 Clin Com Influenza Type A (CEDRIC) (Negative) Influenza Type B (CEDRIC) (Negative) Influenza A & B Note Independent Interpretation I performed an independent interpretation of an: Plain X-Ray ( chest: No acute intrathoracic pathology.) Radiology Impression Discussion of test interpretation with radiology: I have reviewed the radiologist's reading. Discharge Plan Discharge Clinical Impression: COPD exacerbation Patient Disposition: Admitted As Inpatient
--- NOTE | 2023-10-02 14:49 | ECG_ITS ---
Test Reason : DISPENA Blood Pressure : / mmHG Vent. Rate : 112 BPM Atrial Rate : 224 BPM P-R Int : 000 ms QRS Dur : 134 ms QT Int : 464 ms P-R-T Axes : -12 035 -10 degrees QTc Int : 633 ms Poor data quality Sinus tachycardia Non-specific intra-ventricular conduction block Minimal voltage criteria for LVH, may be normal variant ( Nate product ) Abnormal ECG When compared with ECG of 27-SEP-2023 18:22, Heart rate has decreased Referred By: Amy Chacon Electronically Signed By:DIPTI RUIZ MD
[2023-10-02] MEDS: Albuterol Sulfate (0.083%) 2.5 MG/3 ML VIAL.NEB INHALE (15:15)
[2023-10-02] MEDS: Albuterol Sulfate 2.5 MG, Albuterol/Iprat 2.5/0.5MG 3 ML 3 ML INHALE (15:15)
--- NOTE | 2023-10-02 15:25 | PC.NURSE ---
a&ox3, vss aside from nsr on the shelter monitor. pt comes in today d/t increased sob/dyspnea on exertion x few days. pt was d/c'd on 09/30 after being admitted d/t copd exacerbation. wob noted. pt unable to speak in full/clear sentences w/o difficulty. pt c/o 8/10 chest pain on inspiration/headache. provider/RT bedside assessing pt.
--- NOTE | 2023-10-02 15:27 | PC.NURSE ---
22g IV placed in the right wrist. pt is hard stick. 1st set of cultures obtained. tech bedside performing ekg/attempting to obtain rest of labs. pt respirations remain uneven and labored. RT bedside for support. pt still currently receiving breathing treatment. call devi placed within reach.
--- NOTE | 2023-10-02 15:32 | PHA.MEDREC ---
Pharmacy Consult ? Medication Reconciliation Pharmacy has completed the medication reconciliation. Patient just discharge 09/30 for [facility]. Patient was prescribed a prednisone taper on discharge, patient also typically on prednisone 5 mg daily. Tila Buckner, JayashreeD
[2023-10-02] MEDS: Piperacillin Sodium/Tazobactam 3.375 GM in 0.9 % Sodium Chloride 50 ML IV (15:35)
[2023-10-02] MEDS: diphenhydrAMINE HCL 50 MG/ML VIAL 25 MG IVPUSH (15:35)
[2023-10-02] MEDS: methylPREDNISolone Sod Succ 125 MG/2 ML VIAL IVPUSH (15:36)
[2023-10-02] MEDS: Morphine Sulfate 2 MG/ML CARTRIDGE 1 MG IVPUSH (15:36)
[2023-10-02] MEDS: Azithromycin 500 MG in 0.9 % Sodium Chloride 250 ML 125 MG IV (15:47)
[2023-10-02 15:54] LABS: COVID-19 Test Negative (Negative); IDNOW Serial# 6674DD1D
[2023-10-02 15:55] LABS: MANUAL DIFF FLAG NO
[2023-10-02 15:56] LABS: Basophils Percent Auto 0.2 % (0-2); Hematocrit 38.8 % (37.0-47.0); Hemoglobin 12.6 g/dl (12.0-16.0); Imm Gran Abs Auto 0.25 X10*3/uL (0.00-0.03); Imm Gran Pct Auto 2.2 % (0.0-0.4); Lymphocytes Percent Auto 17.5 % (20-40); Mean Corpuscular HGB Conc 32.5 g/dl (31.0-35.0); Mean Corpuscular Hemoglobin 27.2 pg (27.0-33.0); Mean Corpuscular Volume 83.6 fL (80.0-98.0); Mean Platelet Volume 10.4 fL (9.4-12.3); Monocytes Absolute Auto 0.1 X10*3/uL (0.1-1.2); Monocytes Percent Auto 1.2 % (2-11); Neutrophils Percent Auto 78.9 % (45-73); Platelet Count 340 X10*3/uL (160-400); Red Blood Count 4.64 X10*6/uL (4.20-5.50); Red Cell Distribution Width 13.6 % (11.0-16.0); White Blood Count 11.4 X10*3/uL (4.8-10.8)
--- NOTE | 2023-10-02 15:59 | MHC.EDTECH ---
This pct assumed care of pt at 1500 ,vitals taken ,ekg done and was read by Provider ,blood drawn ,including 2nd sets of blood culture and lactic acid ,blood sugar check RN ,Ursula aware of result of 334
[2023-10-02 16:04] LABS: IDNOW Serial# 9DB6401D; Influenza A Negative (Negative); Influenza B2 Negative (Negative)
[2023-10-02 16:17] LABS: B Type Natriuretic Peptide 19 pg/mL (<100)
[2023-10-02 16:19] LABS: Troponin-I High Sensitivity 3.2 ng/L (<3.5-17.0)
[2023-10-02 16:21] LABS: Alanine Aminotransferase 14 U/L (0-31); Albumin Level 3.4 g/dL (3.5-5.0); Alkaline Phosphatase 62 U/L (39-117); Anion Gap 15 (12-20); Aspartate Amino Transferase 14 U/L (5-31); Bilirubin Direct < 0.2 mg/dL (0.0-0.5); Bilirubin Total 0.2 mg/dL (0.0-1.0); Blood Urea Nitrogen 20 mg/dL (9-16); Calcium 8.9 mg/dL (8.4-10.2); Carbon Dioxide 22 mmol/L (22-29); Chloride 103 mmol/L (96-108); Creatinine Clr Calc Pharmacy 39.7; Estimated Glomerular Filt Rate 57; Glucose Random 372 mg/dL (60-115); Magnesium 1.6 mg/dL (1.6-2.6); Sodium 136 mmol/L (135-145); Total Protein 6.2 g/dL (6.5-8.0)
[2023-10-02 16:26] LABS: Appearance Urine Clear; Color Urine Yellow; Glucose Urine UA >=1000 mg/dL (Negative); Leukocyte Esterase Urine Negative (Negative); Nitrite Urine Negative (Negative); PH 6.5 (5.0-9.0); Specific Gravity - Urine 1.025 (1.005-1.025); UMIC TRIGGER UACC YES; Urine Blood Negative (Negative); Urine Ketones Negative (Negative); Urine Protein Negative (Neg-Trace)
[2023-10-02 16:31] LABS: Bacteria Urine None Seen (None Seen); Hyaline Casts Urine 0-2 /LPF (0-2); RBC Urine 0-2 /HPF (0-2); Squamous Epithelial Cell Urine 0-2 /HPF (0-2); WBC Urine 0-5 /HPF (0-5)
[2023-10-02 16:31] LABS: Glucose, Whole Blood 334 mg/dL (60-115)
[2023-10-02 16:34] LABS: Procalcitonin 0.02 ng/mL
[2023-10-02] MEDS: 0.9 % Sodium Chloride 1,428.81 ML 1428.81 ML IV (16:48)
--- NOTE | 2023-10-02 16:49 | PC.NURSE ---
20g IV placed in left forearm - IV fluids administered per provider order. WOB/SOB subsided at this time. pt resting comfortably in no apparent distress. respirations even and unlabored. call devi placed within reach.
--- NOTE | 2023-10-02 17:16 | MHC.EDTECH ---
Vitals taken and repeated ekg done and was read by Provider .
[2023-10-02 17:19] LABS: INTERNATIONAL NORM RATIO 1.1 (0.9-1.1); Prothrombin Time 13.6 SEC (11.1-13.3)
[2023-10-02 17:53] LABS: Reflex Lactate? Lactic Acid Added
--- NOTE | 2023-10-02 18:35 | MHC.EDTECH ---
Patient repeated lactic acid draw is delay ,because Pt a difficult stick and ,we have no more blue butterfly needle .
--- NOTE | 2023-10-02 18:39 | PC.NURSE ---
pt c/o new onset left sided chest pain that radiates to LUE and jaw - ekg ordered - currently being performed by [employer].
[2023-10-02] MEDS: Acetaminophen 325 MG TABLET 650 MG PO (18:43)
--- NOTE | 2023-10-02 18:53 | PC.NURSE ---
repeat lactic not obtained at this time d/t fluids not being completely administered.
--- NOTE | 2023-10-02 18:59 | MHC.EDTECH ---
JAQUELINE TRINIDAD SAID NOT TO DRAW REPEATED LACTIC ACID ,BECAUSE FLUIDS ARE NOT FINISH RUNNING .
--- NOTE | 2023-10-02 19:30 | P.HPHOSP_ITS ---
History of Present Illness Date of Service: 10/02/23 Chief Complaint: Dyspnea This is a 63-year-old female with pertinent history of asthma/COPD overlap syndrome not on home oxygen, tobacco use disorder, insulin-dependent diabetes mellitus, gastroesophageal reflux disease, mood disorder, CAD status post PCI who presents to the emergency department for evaluation of dyspnea. Patient was recently admitted with exacerbation of obstructive lung disease and discharged on 09/30 with p.o. prednisone. Patient states she started having similar symptoms 1 day prior to presentation. Patient began to have dyspnea which was worse with exertion. Also had associated wheezing and nonproductive cough. No fevers but admits chills. Denies chest discomfort, palpitations, nausea, vomiting, abdominal pain, changes in urinary or bowel habits. She continues to smoke cigarettes In the emergency department, patient continued to have wheezing despite DuoNeb treatments. Review of Systems 2 Constitutional: Constitutional: Reports no additional constitutional complaints Cardiovascular: Cardiovascular: Reports dyspnea on exertion Respiratory: Respiratory: Reports cough, Reports dyspnea on exertion and Reports wheezing Gastrointestinal: Gastrointestinal: Reports no additional gastrointestinal complaints Genitourinary: Genitourinary: Reports no additional female genitourinary complaints Allergic/Immunologic: Allergic/Immunologic: Reports wheezing [facility] Medical History (Updated 10/02/23 @ 20:13 by Tatiana Sánchez MD) Acute respiratory distress Hospital discharge follow-up Tendonitis of ankle or foot Colitis Cough Anxiety CAD (coronary artery disease) HLD (hyperlipidemia) HTN (hypertension) T2DM (type 2 diabetes mellitus) COPD exacerbation Hyperkalemia Atherosclerotic cardiovascular disease GERD (gastroesophageal reflux disease) CVA (cerebral vascular accident) Breast pain, right Rash Bloody diarrhea PAD (peripheral artery disease) Hyperlipidemia LDL goal <100 COPD (chronic obstructive pulmonary disease) Infiltrating ductal carcinoma of left breast, stage 2 Insomnia Dyslipidemia Bipolar 1 disorder, depressed Cough Restrictive airway disease Hypothyroid IDDM (insulin dependent diabetes mellitus) Vitamin D deficiency Osteoporosis Hyperparathyroidism Thyroid nodule Depression Fibromyalgia Seropositive rheumatoid arthritis Reactive airways dysfunction syndrome Allergic rhinitis Irritable bowel Anxiety Bronchial asthma Diabetes type 2, uncontrolled Hypertension Family History Mother Diabetes HTN (hypertension) Uterus cancer Malignant tumor of head Breast cancer Father Diabetes HTN (hypertension) CVD (cardiovascular disease) Heart problem Maternal Aunt Breast cancer Brother Myocardial infarction S/P CABG x 4 Family/Other FH: mental illness Family/Other Lung cancer Other Mental health disorder Surgical History Hx of sigmoidoscopy History of bronchoscopy Hx of endoscopy H/O cardiac catheterization History of lumpectomy of left breast History of pubovaginal sling History of esophagogastroduodenoscopy (EGD) History of tubal ligation History of colonoscopy History of bunionectomy of both great toes H/O: hysterectomy Social History Household Members: Family Household Members Other:: sister Housing: House Are you a primary home child care provider to a significant other at home: No Do you presently have visiting nurse or other home services: Yes (sister is human resources benefits coordinator) Unable to assess alcohol history related to: Unknown Alcohol intake: never Patient Tobacco Use Status: Current everyday Tobacco user Tobacco use type: Cigarette Cigarette Packs Per Day: 0.5 Cigarettes Per Day: 3 Years Smoked: 12 Smoked in Last 30 Days: Yes e-Cigarette/Vaping Use: Never Used Second Hand Smoke Exposure: Yes Use of substances other than those prescribed or required for medical reasons: No Substance Use Type: Marijuana Advance Directives: Yes Advance Directives on File: Yes Advance Directives Date on File: 12/22/21 Patient : No service: No Current occupational status: disabled Current occupation: rt handed Cognitive needs: No Hearing needs: No Vision needs: Yes Meds Allergies Allergy/AdvReac Type Severity Reaction Status Date / Time dog dander [DOGS] Allergy Intermediate Respiratory Verified 10/02/23 13:41 distress shellfish derived Allergy Intermediate Hives Verified 10/02/23 13:41 methylprednisolone Allergy Rash Verified 10/02/23 13:41 etanercept [From Enbrel] AdvReac Intermediate Facial Verified 10/02/23 13:41 Swelling ibuprofen [Ibuprofen] AdvReac Intermediate STOMACH Verified 10/02/23 13:41 UPSET, abdominal pain, nausea and vomiting metformin AdvReac Intermediate Diarrhea Verified 10/02/23 13:41 metronidazole [From FLAGYL] AdvReac Intermediate Diarrhea Verified 10/02/23 13:41 prednisone AdvReac Intermediate hallucinations, Verified 10/02/23 13:41 higher than 20 Home Medications Medication Instructions Recorded Confirmed Last Taken Type albuterol sulfate 90 mcg/actuation 2 inh inhalation Q4H PRN Shortness 08/23/23 10/02/23 09/26/23 History aerosol inhaler Of Breath Or Wheezing dulaglutide 1.5 mg/0.5 mL 1.5 mg subcut TH@0900 09/27/23 10/02/23 09/26/23 History subcutaneous pen injector (Trulicity) mesalamine 1.2 gram tablet,delayed 2.4 g PO DAILY 09/27/23 10/02/23 09/26/23 History release pantoprazole 40 mg tablet,delayed 40 mg PO BID@0630,1630 09/27/23 10/02/23 09/26/23 History release Physical Exam 2 Vital Signs and Narrative: Vital Signs: Last Vital Signs Temp 98.3 F 10/02/23 18:00 Pulse 96 10/02/23 18:00 Resp 16 10/02/23 18:00 BP 135/82 10/02/23 18:00 Pulse Ox 96 10/02/23 18:00 O2 Del Method Room Air 10/02/23 18:00 BMI result Body Mass Index 22.7 Middle-aged female lying in bed in mild distress Neck supple, no JVD Tachycardia with regular rhythm, S1-S2 heard Bilateral wheezing with tachypnea Abdomen soft nontender, no guarding, no rigidity Patient is awake, alert and oriented to self, place, time and person ; no focal motor deficit Psych: Normal mood No pedal edema Results Labs 10/02/23 15:50 10/02/23 15:50 Labs: Laboratory Results - last 24 hr 10/02/23 10/02/23 10/02/23 15: 15:50 15:59 MCV 83.6 MCH 27.2 MCHC 32.5 RDW 13.6 Plt Count 340 MPV 10.4 Immature Gran % (Auto) 2.2 H Neut % (Auto) 78.9 H Lymph % (Auto) 17.5 L [place] % (Auto) 1.2 L Eos % (Auto) 0.0 Baso % (Auto) 0.2 Lymph # (Auto) 2.0 [place] # (Auto) 0.1 Eos # (Auto) 0.0 Baso # (Auto) 0.0 Abs Immat Gran (auto) 0.25 H Absolute Neuts (auto) 9.0 H Absolute Nucleated RBC 0.000 Nucleated RBC % (auto) 0.0 PT 13.6 H INR 1.1 Anion Gap 15 Estim Creat Clear Calc 39.7 Estimated GFR 57 POC Glucose 334 H Random Glucose 372 H* Lactic Acid 5.0 H* Calcium 8.9 D Magnesium 1.6 Total Bilirubin 0.2 Direct Bilirubin < 0.2 AST 14 ALT 14 Alkaline Phosphatase 62 B-Natriuretic Peptide 19 Total Protein 6.2 L Albumin 3.4 L Procalcitonin 0.02 Urine Color Urine Appearance Urine pH Ur Specific [place] Urine Protein Urine Glucose (UA) Urine Ketones Urine Blood Urine Nitrite Ur Leukocyte Esterase Urine RBC Urine WBC Ur Squamous Epith Cells Urine Bacteria Hyaline Casts COVID-19 (KRISS) Negative COVID-19 Clin Com See Note Influenza Type A (CEDRIC) Negative Influenza Type B (CEDRIC) Negative Influenza A & B Note See Note 10/02/23 16:11 MCV MCH MCHC RDW Plt Count MPV Immature Gran % (Auto) Neut % (Auto) Lymph % (Auto) [place] % (Auto) Eos % (Auto) Baso % (Auto) Lymph # (Auto) [place] # (Auto) Eos # (Auto) Baso # (Auto) Abs Immat Gran (auto) Absolute Neuts (auto) Absolute Nucleated RBC Nucleated RBC % (auto) PT INR Anion Gap Estim Creat Clear Calc Estimated GFR POC Glucose Random Glucose Lactic Acid Calcium Magnesium Total Bilirubin Direct Bilirubin AST ALT Alkaline Phosphatase B-Natriuretic Peptide Total Protein Albumin Procalcitonin Urine Color Yellow Urine Appearance Clear Urine pH 6.5 Ur Specific [place] 1.025 Urine Protein Negative Urine Glucose (UA) >=1000 H Urine Ketones Negative Urine Blood Negative Urine Nitrite Negative Ur Leukocyte Esterase Negative Urine RBC 0-2 Urine WBC 0-5 Ur Squamous Epith Cells 0-2 Urine Bacteria None Seen Hyaline Casts 0-2 COVID-19 (KRISS) COVID-19 Clin Com Influenza Type A (CEDRIC) Influenza Type B (CEDRIC) Influenza A & B Note Imaging Radiologist's Impressions: Impressions Chest X-Ray 10/02/23 15:10 IMPRESSION: No acute cardiopulmonary disease. Suspicion for objects external to the patient accounting for right humeral and right upper medial lung densities. Correlate clinically, repeat radiograph if necessary. Chest X-Ray 10/02/23 17:30 IMPRESSION: No radiographic evidence of acute cardiopulmonary disease. Assessment and Plan (1) Acute respiratory distress: Status: Resolved Plan This is a 63-year-old female with pertinent history of asthma/COPD overlap syndrome not on home oxygen, tobacco use disorder, insulin-dependent diabetes mellitus, gastroesophageal reflux disease, mood disorder, CAD status post PCI who presents to the emergency department for evaluation of dyspnea. #. Acute respiratory distress due to acute exacerbation of asthma/COPD overlap syndrome: Will admit patient and initiate systemic steroids. Scheduled and p.r.n. DuoNebs. Continue home inhaler. Tachypnea and tachycardia due to exacerbation of obstructive lung disease, no sepsis. Consulting pulmonology for recurrent exacerbations of obstructive lung disease. #. Acute lactic acidosis: Due to albuterol use. No sepsis. #. Insulin-dependent diabetes mellitus with hyperglycemia: Initiating basal plus insulin regimen #. Tobacco use disorder: Counseled regarding cessation. Offered nicotine patch #. Gastroesophageal reflux disease: On PPI #. Mood disorder: Continue home mood stabilizers #. Coronary artery disease: Continue antiplatelet agent. Not on high-intensity statin #. History of breast cancer: On letrozole DVT prophylaxis: Lovenox Quality Stroke Does the patient have a stroke diagnosis?: No VTE Prior VTE?: No VTE Risk Level:: Medical - moderate - high VTE Device Contraindication: Treatment Not Indicated VTE Drug Contraindication: N/A - Med Ordered
[2023-10-02 20:06] LABS: ~Lactic Acid-LAB USE ONLY 3.9 mmol/L (0.5-2.0)
[2023-10-02] MEDS: Enoxaparin Sodium 40 MG/0.4 ML SYRINGE SUBCUT (20:36)
[2023-10-02] MEDS: Albuterol/Iprat 2.5/0.5MG 3 ML AMPUL.NEB INHALE (20:39)
--- NOTE | 2023-10-02 20:47 | PC.NURSE ---
respiratory at bedside for updraft
[2023-10-02] MEDS: Insulin Glargine,Hum.rec.anlog 100 UNIT/ML 10 ML VIAL 10 UNIT SUBCUT (21:21)
[2023-10-02] MEDS: Pregabalin 200 MG CAPSULE PO (21:22)
[2023-10-02] MEDS: Famotidine 20 MG TABLET PO (21:22)
[2023-10-02] MEDS: traZODone HCL 100 MG TABLET PO (21:22)
--- NOTE | 2023-10-02 21:22 | MHC.EDTECH ---
Patient blood sugar check JAQUELINE patel aware of patient result of 298 .Pt said she was hungry ,JAQUELINE Mendez said Pt can eat ,Patient was given a ham sandwich and femi amanda for snack .
[2023-10-02] MEDS: Insulin Lispro 100 UNIT/ML 3 ML VIAL SUBCUT (21:33)
[2023-10-02] MEDS: Morphine Sulfate Immed Release 15 MG TABLET PO (21:34)
--- NOTE | 2023-10-02 21:41 | PC.NURSE ---
report given to RN, will message transport. pt resting comfortably, eating a sandwich at this time
[2023-10-02 21:50] LABS: Reflex Lactate? 2 Y
[2023-10-02 21:55] LABS: Glucose, Whole Blood 298 mg/dL (60-115)
[2023-10-02] MEDS: 0.9 % Sodium Chloride 1,000 ML 999 ML IV (22:45)
[2023-10-03] VITALS (7 sets, daily range): BP systolic 99–148; BP diastolic 59–78; PULSE 76–97; RESP 17–22; TEMP 36.4–37.2; O2SAT 94–99
[2023-10-03] MEDS: 0.9 % Sodium Chloride Flush 3 ML SYRINGE IVFLUSH ×4 (00:07→20:59)
[2023-10-03] MEDS: diphenhydrAMINE HCL 50 MG/ML VIAL IVPUSH (05:22)
[2023-10-03] MEDS: methylPREDNISolone Sod Succ 40 MG/ML VIAL IVPUSH ×2 (05:22→16:28)
[2023-10-03] MEDS: Omeprazole 20 MG CAPSULE.DR PO ×2 (05:26→16:28)
--- NOTE | 2023-10-03 05:27 | PC.NURSE ---
scheduled 0400 methylprednisolone dose administered later than scheduled as awaiting md order to give with Benadryl as per pt hx and allergy.
[2023-10-03 06:15] LABS: MANUAL DIFF FLAG NO
[2023-10-03 06:19] LABS: Basophils Percent Auto 0.1 % (0-2); Hematocrit 33.9 % (37.0-47.0); Hemoglobin 10.9 g/dl (12.0-16.0); Imm Gran Abs Auto 0.31 X10*3/uL (0.00-0.03); Imm Gran Pct Auto 2.7 % (0.0-0.4); Lymphocytes Absolute Auto 1.7 X10*3/uL (1.2-4.9); Lymphocytes Percent Auto 15.3 % (20-40); Mean Corpuscular HGB Conc 32.2 g/dl (31.0-35.0); Mean Corpuscular Hemoglobin 27.1 pg (27.0-33.0); Mean Corpuscular Volume 84.3 fL (80.0-98.0); Mean Platelet Volume 11.1 fL (9.4-12.3); Monocytes Absolute Auto 0.6 X10*3/uL (0.1-1.2); Monocytes Percent Auto 5.1 % (2-11); Neutrophils Absolute Auto 8.7 x10*3/uL (2.0-8.3); Neutrophils Percent Auto 76.8 % (45-73); Platelet Count 312 X10*3/uL (160-400); Red Blood Count 4.02 X10*6/uL (4.20-5.50); Red Cell Distribution Width 13.6 % (11.0-16.0); White Blood Count 11.3 X10*3/uL (4.8-10.8)
[2023-10-03 06:36] LABS: Anion Gap 10 (12-20); Blood Urea Nitrogen 12 mg/dL (9-16); Calcium 7.9 mg/dL (8.4-10.2); Carbon Dioxide 26 mmol/L (22-29); Chloride 110 mmol/L (96-108); Creatinine Clr Calc Pharmacy 58.3; Estimated Glomerular Filt Rate > 60; Glucose Random 256 mg/dL (60-115); Potassium 3.8 mmol/L (3.3-5.1); Sodium 142 mmol/L (135-145)
[2023-10-03 07:54] LABS: Glucose, Whole Blood 144 mg/dL (60-115)
[2023-10-03] MEDS: Albuterol/Iprat 2.5/0.5MG 3 ML AMPUL.NEB INHALE ×3 (08:05→20:26)
[2023-10-03] MEDS: Budesonide 0.5 MG/2 ML AMPUL.NEB 0.25 MG INHALE ×2 (08:05→20:27)
[2023-10-03] MEDS: Mesalamine 400 MG CAP.DRTAB. 2400 MG PO (08:06)
[2023-10-03] MEDS: Morphine Sulfate Immed Release 15 MG TABLET PO ×2 (08:06→14:18)
[2023-10-03] MEDS: Pregabalin 200 MG CAPSULE PO ×2 (08:07→20:58)
[2023-10-03] MEDS: Aspirin Enteric Coated 81 MG TABLET.DR PO (08:07)
[2023-10-03] MEDS: Letrozole 2.5 MG TABLET PO (08:07)
--- NOTE | 2023-10-03 09:43 | P.CONPL_ITS ---
History of Present Illness History of Present Illness Consult date: 10/03/23 Reason for consult: cough Chief complaint: Dyspnea Narrative: Pulmonary consultation: I have seen this 63 years old female this morning. She is a well known case of chronic obstructive pulmonary disease with frequent bouts of the tracheobronchitis, a long-time smoker, Who has ongoing cough shortness of breath and wheezing, along with frequent nasal congestion. Patient has multiple comorbidities including bipolar disorder. Her main problem is continued smoking, and she has not been able to quit, though she is claims that she has cut down to only 2 or 3 cigarettes a day. She was seen by me in the office on 09/25, with ongoing cough and wheezing. I found her more at baseline, and advised her to continue her regular medical regimen. However she was the admitted from -, when she had presented to the emergency room with increased cough and wheezing. She was discharged on 09/30 and supposed to be on prednisone taper , However she has presented to the emergency room on 10/02 again, with increased symptoms, and is hospitalized once again. She claims that she has ongoing, irritation in the upper airways and feels as if her airways are closing. She has had no fever or chills. She does have frequent cough but no expectoration. She does get some chest discomfort due to frequent cough. For cough relief the she has the guaifenesin with codeine syrup at home which she has used 2 or 3 times a day. Included in her long list of medical problems, is, chronic rheumatoid arthritis and fibromyalgia , and bipolar disorder. Review of Systems 2 Review of Systems: Yes all other systems are reviewed and are negative [facility] Past Medical History Medical History Acute respiratory distress Hospital discharge follow-up Tendonitis of ankle or foot Colitis Cough Anxiety CAD (coronary artery disease) HLD (hyperlipidemia) HTN (hypertension) T2DM (type 2 diabetes mellitus) COPD exacerbation Hyperkalemia Atherosclerotic cardiovascular disease GERD (gastroesophageal reflux disease) CVA (cerebral vascular accident) Breast pain, right Rash Bloody diarrhea PAD (peripheral artery disease) Hyperlipidemia LDL goal <100 COPD (chronic obstructive pulmonary disease) Infiltrating ductal carcinoma of left breast, stage 2 Insomnia Dyslipidemia Bipolar 1 disorder, depressed Cough Restrictive airway disease Hypothyroid IDDM (insulin dependent diabetes mellitus) Vitamin D deficiency Osteoporosis Hyperparathyroidism Thyroid nodule Depression Fibromyalgia Seropositive rheumatoid arthritis Reactive airways dysfunction syndrome Allergic rhinitis Irritable bowel Anxiety Bronchial asthma Diabetes type 2, uncontrolled Hypertension Family History Family History Mother Diabetes HTN (hypertension) Uterus cancer Malignant tumor of head Breast cancer Father Diabetes HTN (hypertension) CVD (cardiovascular disease) Heart problem Maternal Aunt Breast cancer Brother Myocardial infarction S/P CABG x 4 Family/Other FH: mental illness Family/Other Lung cancer Other Mental health disorder Surgical History Surgical History Hx of sigmoidoscopy History of bronchoscopy Hx of endoscopy H/O cardiac catheterization History of lumpectomy of left breast History of pubovaginal sling History of esophagogastroduodenoscopy (EGD) History of tubal ligation History of colonoscopy History of bunionectomy of both great toes H/O: hysterectomy Social History Social History Household Members: Family Household Members Other:: sister Housing: House Are you a primary critical care transport nurse to a significant other at home: No Do you presently have visiting nurse or other home services: Yes (sister is pt's odd job worker) Unable to assess alcohol history related to: Unknown Alcohol intake: never Patient Tobacco Use Status: Current everyday Tobacco user Tobacco use type: Cigarette Cigarette Packs Per Day: 0.5 Cigarettes Per Day: 3 Years Smoked: 12 e-Cigarette/Vaping Use: Never Used Second Hand Smoke Exposure: No Substance Use Type: Marijuana Advance Directives Date on File: 12/22/21 service: No Current occupational status: disabled Current occupation: rt handed Cognitive needs: No Hearing needs: No Vision needs: Yes Meds Allergies Allergy/AdvReac Type Severity Reaction Status Date / Time dog dander [DOGS] Allergy Intermediate Respiratory Verified 10/02/23 13:41 distress shellfish derived Allergy Intermediate Hives Verified 10/02/23 13:41 methylprednisolone Allergy Rash Verified 10/02/23 13:41 etanercept [From Enbrel] AdvReac Intermediate Facial Verified 10/02/23 13:41 Swelling ibuprofen [Ibuprofen] AdvReac Intermediate STOMACH Verified 10/02/23 13:41 UPSET, abdominal pain, nausea and vomiting metformin AdvReac Intermediate Diarrhea Verified 10/02/23 13:41 metronidazole [From FLAGYL] AdvReac Intermediate Diarrhea Verified 10/02/23 13:41 prednisone AdvReac Intermediate hallucinations, Verified 10/02/23 13:41 higher than 20 Active Medications: Current Medications Acetaminophen (Acetaminophen 325 Mg Tablet) 650 mg PO Q6H PRN PRN Reason: Pain, Mild (Pain Scale 1-3) Albuterol/Ipratropium (Albuterol/Iprat 2.5/0.5mg 3 Ml Ampul.Neb) 3 ml INHALE RQ4H WHILE AWAKE [facility] Last Admin: 10/03/23 08:05 Dose: 3 ml Albuterol/Ipratropium (Albuterol/Iprat 2.5/0.5mg 3 Ml Ampul.Neb) 3 ml INHALE Q4H PRN PRN Reason: Wheezing Aspirin (Aspirin Enteric Coated 81 Mg Tablet.Dr) 81 mg PO DAILY [facility] Last Admin: 10/03/23 08:07 Dose: 81 mg Budesonide (Budesonide 0.5 Mg/2 Ml Ampul.Neb) 0.25 mg INHALE RBID [facility] Last Admin: 10/03/23 08:05 Dose: 0.25 mg Dextrose (Dextrose 50 % 25 Gm/50 Ml Syringe) 25 gm IVPUSH Q15M PRN; Protocol PRN Reason: per Hypoglycemia Standing Ord. Diphenhydramine HCl (Diphenhydramine Hcl 25 Mg Capsule) 25 mg PO Q6H PRN PRN Reason: Itching Enoxaparin Sodium (Enoxaparin Sodium 40 Mg/0.4 Ml Syringe) 40 mg SUBCUT Q24H [facility] Last Admin: 10/02/23 20:36 Dose: 40 mg Famotidine (Famotidine 20 Mg Tablet) 20 mg PO BEDTIME [facility] Last Admin: 10/02/23 21:22 Dose: 20 mg Glucose (Glucose Gel 15 Gm Gel..Gram.) 15 gm PO Q15M PRN; Protocol PRN Reason: per Hypoglycemia Standing Ord. Insulin Glargine (Insulin Glargine,Hum.Rec.Anlog 100 Unit/Ml 10 Ml Vial) 10 unit SUBCUT BEDTIME [facility] Last Admin: 10/02/23 21:21 Dose: 10 unit Insulin Human Lispro (Insulin Lispro 100 Unit/Ml 3 Ml Vial) 0 unit SUBCUT QIDACHS [facility]; Protocol Last Admin: 10/03/23 07:55 Dose: Not Given Letrozole (Letrozole 2.5 Mg Tablet) 2.5 mg PO DAILY [facility] Last Admin: 10/03/23 08:07 Dose: 2.5 mg Melatonin (Melatonin 3 Mg Tablet) 6 mg PO BEDTIME PRN PRN Reason: Insomnia Mesalamine (Mesalamine 400 Mg Cap.Drtab.) 2,400 mg PO DAILY [facility] Last Admin: 10/03/23 08:06 Dose: 2,400 mg Methylprednisolone Sodium Succinate (Methylprednisolone Sod Succ 40 Mg/Ml Vial) 40 mg IVPUSH Q12H [facility] Last Admin: 10/03/23 05:22 Dose: 40 mg Morphine Sulfate (Morphine Sulfate Immed Release 15 Mg Tablet) 15 mg PO Q6H PRN PRN Reason: Pain, Severe (Pain Scale 7-10) Last Admin: 10/03/23 08:06 Dose: 15 mg Omeprazole (Omeprazole 20 Mg Capsule.Dr) 20 mg PO BID@0630,1630 [facility] Last Admin: 10/03/23 05:26 Dose: 20 mg Ondansetron HCl (Ondansetron Hcl 4 Mg/2 Ml Vial) 4 mg IVPUSH Q8H PRN PRN Reason: Nausea and Vomiting Pregabalin (Pregabalin 200 Mg Capsule) 200 mg PO BID [facility] Last Admin: 10/03/23 08:07 Dose: 200 mg Sodium Chloride (0.9 % Sodium Chloride Flush 3 Ml Syringe) 3 ml IVFLUSH QSHIFT [facility] Last Admin: 10/03/23 08:11 Dose: 3 ml Trazodone HCl (Trazodone Hcl 100 Mg Tablet) 100 mg PO BEDTIME [facility] Last Admin: 10/02/23 21:22 Dose: 100 mg Home Medications Medication Instructions Recorded Confirmed Last Taken Type albuterol sulfate 90 mcg/actuation 2 inh inhalation Q4H PRN Shortness 08/23/23 10/02/23 09/26/23 History aerosol inhaler Of Breath Or Wheezing dulaglutide 1.5 mg/0.5 mL 1.5 mg subcut TH@0900 09/27/23 10/02/23 09/26/23 History subcutaneous pen injector (Trulicity) mesalamine 1.2 gram tablet,delayed 2.4 g PO DAILY 09/27/23 10/02/23 09/26/23 History release pantoprazole 40 mg tablet,delayed 40 mg PO BID@0630,1630 09/27/23 10/02/23 09/26/23 History release Physical Exam 2 Vital Signs: Vital Signs: Last Vital Signs Temp 97.6 F 10/03/23 07:24 Pulse 93 10/03/23 08:10 Resp 18 10/03/23 08:10 BP 148/78 H 10/03/23 07:24 Pulse Ox 96 10/03/23 07:24 O2 Del Method Room Air 10/03/23 07:24 BMI result Body Mass Index 23.9 Patient appears comfortable except for frequent bouts of cough during conversation. Const: General: comfortable, no acute distress, alert and awake O rientation/consciousness: patient oriented x3 HEENT: Head: Yes normal to inspection General nose exam: No nasal polyps present and No nasal discharge present Face and sinus: Yes sinuses nontender Mouth: oropharynx normal Throat: Yes posterior oropharynx normal Eyes: General: appearance normal, both eyes and all related structures Neck: Neck: Yes normal visual inspection, Yes no lymphadenopathy, Yes trachea midline and Yes no JVD Thyroid: Thyroid normal Chest: Chest palpation & inspection: normal inspection of the chest, normal palpation of entire chest wall and no tenderness Resp: Other: Percussion note is resonant,. Breath sounds are equal on both sides, She gets. Cough on taking deep breath Breath sounds are somewhat coarse over the right long, but no definite wheezes or crepitations are heard. Cardio: Palpation: normal PMI Rate: regular rate Rhythm: regular rhythm Heart sounds: no gallops and no murmurs GI: Palpation (GI): Soft to palpation, nontender, No hepatosplenomegaly present and no masses Auscultation: normal bowel sounds Back/Spine/Pelvis: Other: NOT EXAMINED Skin: General skin exam: no rashes or lesions noted Neuro: General: patient oriented x3 and no focal motor deficits Cranial nerves: Yes CN's II-XII intact bilaterally Extrem: General: Yes normal to inspection, Yes no clubbing, cyanosis or edema and Yes no calf tenderness Psych: Appearance: grossly normal and well kempt Speech and movement: N ormal speech and movement present Results Laboratory Findings 10/03/23 05:05 10/03/23 05:05 ABG, PT/INR, D-dimer: PT/INR, D-dimer PT 13.6 SEC (11.1-13.3) H 10/02/23 15:50 INR 1.1 (0.9-1.1) 10/02/23 15:50 Abnormal lab findings: Abnormal Labs 10/02/23 10/02/23 10/02/23 15:50 15:59 16:11 WBC 11.4 H RBC Hgb Hct Immature Gran % (Auto) 2.2 H Neut % (Auto) 78.9 H Lymph % (Auto) 17.5 L [place] % (Auto) 1.2 L Abs Immat Gran (auto) 0.25 H Absolute Neuts (auto) 9.0 H PT 13.6 H Chloride Anion Gap BUN 20 H POC Glucose 334 H Random Glucose 372 H* Lactic Acid 5.0 H* Lactic Acid F/U @ 2Hr Lactic Acid F/U @ 4Hr Calcium Total Protein 6.2 L Albumin 3.4 L Urine Glucose (UA) >=1000 H 10/02/23 10/02/23 10/02/23 19:44 21:21 22:09 WBC RBC Hgb Hct Immature Gran % (Auto) Neut % (Auto) Lymph % (Auto) [place] % (Auto) Abs Immat Gran (auto) Absolute Neuts (auto) PT Chloride Anion Gap BUN POC Glucose 298 H Random Glucose Lactic Acid Lactic Acid F/U @ 2Hr 3.9 H* Lactic Acid F/U @ 4Hr 6.0 H* Calcium Total Protein Albumin Urine Glucose (UA) 10/03/23 10/03/23 05:05 07:22 WBC 11.3 H RBC 4.02 L Hgb 10.9 L Hct 33.9 L Immature Gran % (Auto) 2.7 H Neut % (Auto) 76.8 H Lymph % (Auto) 15.3 L [place] % (Auto) Abs Immat Gran (auto) 0.31 H Absolute Neuts (auto) 8.7 H PT Chloride 110 H Anion Gap 10 L BUN POC Glucose 144 H Random Glucose 256 H Lactic Acid Lactic Acid F/U @ 2Hr Lactic Acid F/U @ 4Hr Calcium 7.9 L D Total Protein Albumin Urine Glucose (UA) Diagnostic Findings Chest x-ray: report reviewed and image reviewed Assessment and Plan (1) Smoker: Status: Acute (2) Allergic rhinitis: Status: Acute (3) Asthma: Status: Acute (4) COPD exacerbation: Status: Acute (5) Reactive airways dysfunction syndrome: Status: Acute Plan THIS PATIENT DOES HAVE CHRONIC OBSTRUCTIVE PULMONARY DISEASE BUT PREDOMINANTLY BRONCHIAL ASTHMA. SHE HAS REACTIVE AIRWAY SYNDROME, WHICH GETS WORSE DUE TO ONGOING SMOKING, ANXIETY, .AND ALLERGIES SHE HAS DIFFICULTY IN COPING WITH HER ACUTE ON CHRONIC SYMPTOMS, AND HAS TENDENCY TO VISIT THE EMERGENCY ROOM GET ADMITTED WITH ACUTE EXACERBATIONS. I HAVE REPEATEDLY ADVISED HER TO QUIT SMOKING COMPLETELY. SHE HAS BEEN KEPT ON MAXIMUM MEDICAL TREATMENT. SHE DOES NEEDS LOT OF PSYCHOLOGICAL SUPPORT. AT THIS POINT I THINK SHE WOULD NEED IV SOLU-MEDROL FOR A FEW DAYS AND THEN H SHORT PREDNISONE TAPER. IV ZITHROMAX FOR 1 DAY AND THEN SHE COULD BE STARTED ON ZITHROMAX 250 MG DAILY AND I WILL KEEP HER ON THAT FOR ANTI-INFLAMMATORY PURPOSES. CONTINUE ON BREO-201 INHALATION DAILY. DUONEB UPDRAFTS Q 6 HOURS WHILE AWAKE. COUGH CONTROLLED WITH GUAIFENESIN-CODEINE 1 OR 2 TSP Q 6 HOURS P.R.N.. * IT SHOULD BE NOTED THAT I HAVE CHECKED HER EOSINOPHIL COUNT WELL IGE LEVEL VERY RECENTLY AND SHE DOES NOT QUALIFY FOR BIOLOGIC TREATMENT. AFTER DISCHARGE FROM THE HOSPITAL SHE SHOULD BE ENCOURAGED TO MAKE APPOINTMENT FOR FOLLOW-UP VISIT MORE FREQUENTLY. Procedures Date of Service Date of Service: 10/03/23
[2023-10-03 11:33] LABS: Glucose, Whole Blood 213 mg/dL (60-115)
[2023-10-03] MEDS: Insulin Lispro 100 UNIT/ML 3 ML VIAL SUBCUT ×3 (11:57→20:58)
--- NOTE | 2023-10-03 14:09 | P.PNIM_ITS ---
Subjective Subjective Date of Service: 10/03/23 Interval History: Dyspnea Review of Systems Feels short of breath with minimal exertion, has cough Dry mostly. No fever no chills. Physical Exam 2 Vital Signs: Vital Signs: Last Vital Signs Temp 97.6 F 10/03/23 07:24 Pulse 93 10/03/23 08:10 Resp 18 10/03/23 08:10 BP 148/78 H 10/03/23 07:24 Pulse Ox 96 10/03/23 07:24 O2 Del Method Room Air 10/03/23 07:24 BMI result Body Mass Index 23.9 Appearance: Alert.? Oriented X3.sob cvs: rrr, [id number] , no murmur res: air entry still diminshed b/l,has b/l wheezing abd: no rebound or guarding ,nt, bs present. ext pulses present , no cyanosis. neuro: axo3 , nonfocal. Objective Data Active Medications Acetaminophen (Acetaminophen 325 Mg Tablet) 650 mg PO Q6H PRN PRN Reason: Pain, Mild (Pain Scale 1-3) Albuterol/Ipratropium (Albuterol/Iprat 2.5/0.5mg 3 Ml Ampul.Neb) 3 ml INHALE RQ4H WHILE AWAKE [facility] Last Admin: 10/03/23 11:15 Dose: Not Given Documented By: CALLIE Non-Admin Reason: Patient Refused Albuterol/Ipratropium (Albuterol/Iprat 2.5/0.5mg 3 Ml Ampul.Neb) 3 ml INHALE Q4H PRN PRN Reason: Wheezing Aspirin (Aspirin Enteric Coated 81 Mg Tablet.) 81 mg PO DAILY [facility] Last Admin: 10/03/23 08:07 Dose: 81 mg Documented By: DAVID Budesonide (Budesonide 0.5 Mg/2 Ml Ampul.Neb) 0.25 mg INHALE RBID [facility] Last Admin: 10/03/23 08:05 Dose: 0.25 mg Documented By: CALLIE Dextrose (Dextrose 50 % 25 Gm/50 Ml Syringe) 25 gm IVPUSH Q15M PRN; Protocol PRN Reason: per Hypoglycemia Standing Ord. Diphenhydramine HCl (Diphenhydramine Hcl 25 Mg Capsule) 25 mg PO Q6H PRN PRN Reason: Itching Enoxaparin Sodium (Enoxaparin Sodium 40 Mg/0.4 Ml Syringe) 40 mg SUBCUT Q24H [facility] Last Admin: 10/02/23 20:36 Dose: 40 mg Documented By: SUSAN Famotidine (Famotidine 20 Mg Tablet) 20 mg PO BEDTIME [facility] Last Admin: 10/02/23 21:22 Dose: 20 mg Documented By: SUSAN Glucose (Glucose Gel 15 Gm Gel..Gram.) 15 gm PO Q15M PRN; Protocol PRN Reason: per Hypoglycemia Standing Ord. Insulin Glargine (Insulin Glargine,Hum.Rec.Anlog 100 Unit/Ml 10 Ml Vial) 10 unit SUBCUT BEDTIME [facility] Last Admin: 10/02/23 21:21 Dose: 10 unit Documented By: SUSAN Insulin Human Lispro (Insulin Lispro 100 Unit/Ml 3 Ml Vial) 0 unit SUBCUT QIDACHS [facility]; Protocol Last Admin: 10/03/23 11:57 Dose: 4 unit Documented By: DAVID Letrozole (Letrozole 2.5 Mg Tablet) 2.5 mg PO DAILY [facility] Last Admin: 10/03/23 08:07 Dose: 2.5 mg Documented By: DAVID Melatonin (Melatonin 3 Mg Tablet) 6 mg PO BEDTIME PRN PRN Reason: Insomnia Mesalamine (Mesalamine 400 Mg Cap.Drtab.) 2,400 mg PO DAILY [facility] Last Admin: 10/03/23 08:06 Dose: 2,400 mg Documented By: DAVID Methylprednisolone Sodium Succinate (Methylprednisolone Sod Succ 40 Mg/Ml Vial) 40 mg IVPUSH Q12H [facility] Last Admin: 10/03/23 05:22 Dose: 40 mg Documented By: MARGARITA Morphine Sulfate (Morphine Sulfate Immed Release 15 Mg Tablet) 15 mg PO Q6H PRN PRN Reason: Pain, Severe (Pain Scale 7-10) Last Admin: 10/03/23 08:06 Dose: 15 mg Documented By: DAVID Omeprazole (Omeprazole 20 Mg Capsule.) 20 mg PO BID@0630,1630 [facility] Last Admin: 10/03/23 05:26 Dose: 20 mg Documented By: MARGARITA Ondansetron HCl (Ondansetron Hcl 4 Mg/2 Ml Vial) 4 mg IVPUSH Q8H PRN PRN Reason: Nausea and Vomiting Pregabalin (Pregabalin 200 Mg Capsule) 200 mg PO BID [facility] Last Admin: 10/03/23 08:07 Dose: 200 mg Documented By: DAVID Sodium Chloride (0.9 % Sodium Chloride Flush 3 Ml Syringe) 3 ml IVFLUSH QSHIFT [facility] Last Admin: 10/03/23 08:11 Dose: 3 ml Documented By: DAVID Trazodone HCl (Trazodone Hcl 100 Mg Tablet) 100 mg PO BEDTIME [facility] Last Admin: 10/02/23 21:22 Dose: 100 mg Documented By: SUSAN Labs 10/03/23 05:05 10/03/23 05:05 Labs: Laboratory Results - last 24 hr 10/02/23 10/02/23 10/02/23 15: 15:50 15:59 MCV 83.6 MCH 27.2 MCHC 32.5 RDW 13.6 Plt Count 340 MPV 10.4 Immature Gran % (Auto) 2.2 H Neut % (Auto) 78.9 H Lymph % (Auto) 17.5 L [place] % (Auto) 1.2 L Eos % (Auto) 0.0 Baso % (Auto) 0.2 Lymph # (Auto) 2.0 Lee # (Auto) 0.1 Eos # (Auto) 0.0 Baso # (Auto) 0.0 Abs Immat Gran (auto) 0.25 H Absolute Neuts (auto) 9.0 H Absolute Nucleated RBC 0.000 Nucleated RBC % (auto) 0.0 PT 13.6 H INR 1.1 Anion Gap 15 Estim Creat Clear Calc 39.7 Estimated GFR 57 POC Glucose 334 H Random Glucose 372 H* Lactic Acid 5.0 H* Lactic Acid F/U @ 2Hr Lactic Acid F/U @ 4Hr Calcium 8.9 D Magnesium 1.6 Total Bilirubin 0.2 Direct Bilirubin < 0.2 AST 14 ALT 14 Alkaline Phosphatase 62 B-Natriuretic Peptide 19 Total Protein 6.2 L Albumin 3.4 L Procalcitonin 0.02 Urine Color Urine Appearance Urine pH Ur Specific [place] Urine Protein Urine Glucose (UA) Urine Ketones Urine Blood Urine Nitrite Ur Leukocyte Esterase Urine RBC Urine WBC Ur Squamous Epith Cells Urine Bacteria Hyaline Casts COVID-19 ([facility]) Negative COVID-19 Clin Com See Note Influenza Type A (CEDRIC) Negative Influenza Type B (CEDRIC) Negative Influenza A & B Note See Note 10/02/23 10/02/23 10/02/23 16:11 19:44 21:21 MCV MCH MCHC RDW Plt Count MPV Immature Gran % (Auto) Neut % (Auto) Lymph % (Auto) Lee % (Auto) Eos % (Auto) Baso % (Auto) Lymph # (Auto) [place] # (Auto) Eos # (Auto) Baso # (Auto) Abs Immat Gran (auto) Absolute Neuts (auto) Absolute Nucleated RBC Nucleated RBC % (auto) PT INR Anion Gap Estim Creat Clear Calc Estimated GFR POC Glucose 298 H Random Glucose Lactic Acid Lactic Acid F/U @ 2Hr 3.9 H* Lactic Acid F/U @ 4Hr Calcium Magnesium Total Bilirubin Direct Bilirubin AST ALT Alkaline Phosphatase B-Natriuretic Peptide Total Protein Albumin Procalcitonin Urine Color Yellow Urine Appearance Clear Urine pH 6.5 Ur Specific [place] 1.025 Urine Protein Negative Urine Glucose (UA) >=1000 H Urine Ketones Negative Urine Blood Negative Urine Nitrite Negative Ur Leukocyte Esterase Negative Urine RBC 0-2 Urine WBC 0-5 Ur Squamous Epith Cells 0-2 Urine Bacteria None Seen Hyaline Casts 0-2 COVID-19 ([facility]) COVID-19 Clin Com Influenza Type A (CEDRIC) Influenza Type B (CEDRIC) Influenza A & B Note 10/02/23 10/03/23 10/03/23 22:09 05:05 07:22 MCV 84.3 MCH 27.1 MCHC 32.2 RDW 13.6 Plt Count 312 MPV 11.1 Immature Gran % (Auto) 2.7 H Neut % (Auto) 76.8 H Lymph % (Auto) 15.3 L Lee % (Auto) 5.1 Eos % (Auto) 0.0 Baso % (Auto) 0.1 Lymph # (Auto) 1.7 Lee # (Auto) 0.6 Eos # (Auto) 0.0 Baso # (Auto) 0.0 Abs Immat Gran (auto) 0.31 H Absolute Neuts (auto) 8.7 H Absolute Nucleated RBC 0.000 Nucleated RBC % (auto) 0.0 PT INR Anion Gap 10 L Estim Creat Clear Calc 58.3 Estimated GFR > 60 POC Glucose 144 H Random Glucose 256 H Lactic Acid Lactic Acid F/U @ 2Hr Lactic Acid F/U @ 4Hr 6.0 H* Calcium 7.9 L D Magnesium Total Bilirubin Direct Bilirubin AST ALT Alkaline Phosphatase B-Natriuretic Peptide Total Protein Albumin Procalcitonin Urine Color Urine Appearance Urine pH Ur Specific [place] Urine Protein Urine Glucose (UA) Urine Ketones Urine Blood Urine Nitrite Ur Leukocyte Esterase Urine RBC Urine WBC Ur Squamous Epith Cells Urine Bacteria Hyaline Casts COVID-19 ([facility]) COVID-19 Clin Com Influenza Type A (CEDRIC) Influenza Type B (CEDRIC) Influenza A & B Note 10/03/23 11:23 MCV MCH MCHC RDW Plt Count MPV Immature Gran % (Auto) Neut % (Auto) Lymph % (Auto) [place] % (Auto) Eos % (Auto) Baso % (Auto) Lymph # (Auto) Lee # (Auto) Eos # (Auto) Baso # (Auto) Abs Immat Gran (auto) Absolute Neuts (auto) Absolute Nucleated RBC Nucleated RBC % (auto) PT INR Anion Gap Estim Creat Clear Calc Estimated GFR POC Glucose 213 H Random Glucose Lactic Acid Lactic Acid F/U @ 2Hr Lactic Acid F/U @ 4Hr Calcium Magnesium Total Bilirubin Direct Bilirubin AST ALT Alkaline Phosphatase B-Natriuretic Peptide Total Protein Albumin Procalcitonin Urine Color Urine Appearance Urine pH Ur Specific [place] Urine Protein Urine Glucose (UA) Urine Ketones Urine Blood Urine Nitrite Ur Leukocyte Esterase Urine RBC Urine WBC Ur Squamous Epith Cells Urine Bacteria Hyaline Casts COVID-19 ([facility]) COVID-19 Clin Com Influenza Type A (CEDRIC) Influenza Type B (CEDRIC) Influenza A & B Note Assessment and Plan (1) COPD exacerbation: Status: Acute Plan 63-year-old female with pertinent history of asthma/COPD overlap syndrome not on home oxygen, tobacco use disorder, insulin-dependent diabetes mellitus, gastroesophageal reflux disease, mood disorder, CAD status post PCI who presents to the emergency department for evaluation of dyspnea. Acute respiratory distress due to acute exacerbation of asthma(mild intermittent asthma)/COPD overlap syndrome: Discharged 2-3 days back -came back with worsening shortness of breath sob minimal exertion, has sob intermittent with talking continue nebssteriods pulm eval Insulin-dependent diabetes mellitus with hyperglycemia: Initiating basal plus insulin regimen Tobacco use disorder: Counseled regarding cessation. Offered nicotine patch Gastroesophageal reflux disease: On PPI Mood disorder: Continue home mood stabilizers Coronary artery disease: Continue antiplatelet agent. Not on high-intensity statin History of breast cancer: On letrozole DVT prophylaxis: Lovenox Ongoing hospitalization need:Acute respiratory distress due to acute exacerbation of asthma(mild intermittent asthma)/COPD overlap syndrome-need nebs, steroids, expert consultation, repiratory status not improving yet. Quality Stroke Does the patient have a stroke diagnosis?: No VTE Prior VTE?: No VTE Risk Level:: Medical - moderate - high VTE Device Contraindication: Treatment Not Indicated VTE Drug Contraindication: N/A - Med Ordered
[2023-10-03] MEDS: ondansetron HCL 4 MG/2 ML VIAL IVPUSH (14:18)
[2023-10-03] MEDS: Azithromycin 500 MG TABLET PO (14:41)
--- NOTE | 2023-10-03 15:09 | MHC.CM.PN ---
PT REPORTS SHE LIVES WITH HER SISTER WHO IS ALSO HER [employer] SHE DENIES HAVING ANY OTHER SERVICES SHE REPORTS SHE HAS A CANE AND WALKER SHE USES PRN SHE HAS A HCP ON FILE PCP: ARRON HOWARD DCP: HOME RESUME [employer] FAMILY TO TRANSPORT
[2023-10-03] MEDS: diphenhydrAMINE HCL 25 MG CAPSULE PO (15:43)
[2023-10-03 16:19] LABS: Glucose, Whole Blood 156 mg/dL (60-115)
[2023-10-03 20:30] LABS: Glucose, Whole Blood 230 mg/dL (60-115)
[2023-10-03] MEDS: traZODone HCL 100 MG TABLET PO (20:58)
[2023-10-03] MEDS: Famotidine 20 MG TABLET PO (20:58)
[2023-10-03] MEDS: Enoxaparin Sodium 40 MG/0.4 ML SYRINGE SUBCUT (20:58)
[2023-10-03] MEDS: Insulin Glargine,Hum.rec.anlog 100 UNIT/ML 10 ML VIAL 10 UNIT SUBCUT (20:58)
[2023-10-04] MEDS: Morphine Sulfate Immed Release 15 MG TABLET PO (00:12)
[2023-10-04] MEDS: Melatonin 3 MG TABLET 6 MG PO (00:16)
[2023-10-04 03:27] VITALS: BP 115/65; PULSE 87; RESP 17; TEMP 36.3; O2SAT 96
[2023-10-04] MEDS: diphenhydrAMINE HCL 25 MG CAPSULE PO (03:51)
[2023-10-04] MEDS: methylPREDNISolone Sod Succ 40 MG/ML VIAL IVPUSH (04:24)
[2023-10-04] MEDS: Omeprazole 20 MG CAPSULE.DR PO (05:43)
[2023-10-04 07:31] VITALS: BP 129/73; PULSE 96; RESP 22; TEMP 36.8; O2SAT 95
[2023-10-04 07:39] LABS: Glucose, Whole Blood 211 mg/dL (60-115)
[2023-10-04] MEDS: Budesonide 0.5 MG/2 ML AMPUL.NEB 0.25 MG INHALE (07:48)
[2023-10-04] MEDS: Albuterol/Iprat 2.5/0.5MG 3 ML AMPUL.NEB INHALE (07:48)
[2023-10-04 07:50] VITALS: PULSE 97; RESP 18; O2SAT 96
[2023-10-04] MEDS: Mesalamine 400 MG CAP.DRTAB. 2400 MG PO (07:54)
[2023-10-04] MEDS: Insulin Lispro 100 UNIT/ML 3 ML VIAL SUBCUT (07:54)
[2023-10-04] MEDS: Aspirin Enteric Coated 81 MG TABLET.DR PO (07:55)
[2023-10-04] MEDS: 0.9 % Sodium Chloride Flush 3 ML SYRINGE IVFLUSH (07:55)
[2023-10-04] MEDS: Letrozole 2.5 MG TABLET PO (07:55)
[2023-10-04] MEDS: Pregabalin 200 MG CAPSULE PO (07:55)
--- NOTE | 2023-10-04 10:24 | P.DS_ITS ---
DS: Providers Provider Date of Service: 10/23/23 Date of admission: 10/03/23 14:24 Date of discharge: 10/04/23 Primary care physician: Adela Wasserman MD Consults: 10/02/23 20:19 Consult to Pulmonology Routine Consulting Provider: [facility] Reason for consultation: Exacerbation of obstructive lung disease Attending physician on discharge: Nano Raphael Discharging clinician: Nano Raphael DS: Diagnosis Discharge Diagnosis (1) COPD exacerbation: Status: Acute DS: Summary Hospital Course Hospital Course: 63-year-old female with pertinent history of asthma/COPD overlap syndrome not on home oxygen, tobacco use disorder, insulin-dependent diabetes mellitus, gastroesophageal reflux disease, mood disorder, CAD status post PCI who presents to the emergency department for evaluation of dyspnea. Patient was recently admitted with exacerbation of obstructive lung disease and discharged on 09/30 with p.o. prednisone. Patient states she started having similar symptoms 1 day prior to presentation. Patient began to have dyspnea which was worse with exertion. Also had associated wheezing and nonproductive cough. No fevers but admits chills. Denies chest discomfort, palpitations, nausea, vomiting, abdominal pain, changes in urinary or bowel habits. She continues to smoke cigarettes In the emergency department, patient continued to have wheezing despite DuoNeb treatments. Hospital course: Patient was acute exacerbation of asthma(mild intermittent asthma)/COPD overlap syndrome,patient also had recent URI with parainfluenza-started on steroids, nebulizer, antibiotics: Patient seems to improved to the baseline. No shortness of breath, sats are fine. Patient will be going home with p.o. steroids prednisone 40 mg for 4 days, but budesonide switched to Breo. Complete course of azithromycin for 5 more days. Follow-up with Pulmonary out patiently-hold budesonide until on Breo. Further management out patiently. Assessment and plan coordination time spent 50 minute. Above plan discussed with the patient in detail length she understand and in agreement with the plan. Time Attestation Discharge coordination time: Greater than 30 minutes Quality: Safe Use of Opioids Does Pt have an Active Cancer Diagnosis on the Problem List?: No Quality: Stroke Does the patient have a stroke diagnosis?: No Physical Exam Vital Signs: Vital Signs: Last Vital Signs Temp 98.2 F 10/04/23 07:31 Pulse 97 10/04/23 07:50 Resp 18 10/04/23 07:50 BP 129/73 10/04/23 07:31 Pulse Ox 95 10/04/23 07:31 O2 Del Method Room Air 10/04/23 07:31 BMI result Body Mass Index 23.9 Appearance: Alert.? Oriented X3.? cvs: rrr, [id number] , no murmur res: clear to auscultation ,no rhonchii or wheezing abd: no rebound or guarding ,nt, bs present. ext pulses present , no cyanosis. neuro: axo3 , nonfocal. DS: Data Data Completed and Pending Completed studies during hospitalization [Text1]: Procedures Excision of Sigmoid Colon, Via Natural or Artificial Opening Endoscopic, Diagnostic (01/23/23) Labs on day of discharge: Laboratory Results - last 24 hr 10/03/23 10/03/23 10/03/23 11: 16:16 20:18 POC Glucose 213 H 156 H 230 H 10/04/23 07:33 POC Glucose 211 H Preliminary micro results at discharge 10/02/23 15:50 Blood Culture - Preliminary Blood - Venous No growth after 24 hours. 10/02/23 15:23 Blood Culture - Preliminary Blood - Venous No growth after 24 hours. Imaging Chest x-ray: Radiologist's impression: ITS Impressions Chest X-Ray 10/02/23 15:10 IMPRESSION: No acute cardiopulmonary disease. Suspicion for objects external to the patient accounting for right humeral and right upper medial lung densities. Correlate clinically, repeat radiograph if necessary. Chest X-Ray 10/02/23 17:30 IMPRESSION: No radiographic evidence of acute cardiopulmonary disease. Discharge Plan Discharge Anticipated Discharge Date/Time: 10/04/23 09:42 Patient Disposition: Home, Self-Care Discharge Diagnosis: copd excerebation Referrals: Adela Gipson MD [Primary Care Provider] - 1 Week Discharge Medications: New prednisone 20 mg Tablet 40 mg PO DAILY Qty: 8 0RF fluticasone furoate-vilanterol [Breo Ellipta] 200-25 mcg/dose Blister With Device 1 inh inhalation RDAILY Qty: 60 0RF azithromycin 250 mg tablet 250 mg PO DAILY 5 Days Qty: 5 0RF Continued (DME) pen needle, diabetic [Comfort EZ Pen [place]] 31 gauge x 5/16 needle See Rx Instructions .ROUTE .MEDSUPPLY Qty: 200 11RF Rx Instructions: Use 1 pen needle 6 times a day (DME) lancets [FreeStyle Lancets] 28 gauge misc See Rx Instructions .Route Qty: 100 3RF Rx Instructions: Use 1 lancet once a day (DME) walker Misc See Rx Instructions .Route Qty: 1 0RF Rx Instructions: with seat letrozole 2.5 mg Tablet 2.5 mg PO DAILY Qty: 90 3RF aspirin 81 mg tablet,delayed release (DR/EC) 81 mg PO DAILY 90 Days Qty: 90 1RF ipratropium bromide 0.02 % solution 2.5 ml inhalation Q6H PRN (Reason: shortness of breath or wheezing) Qty: 150 3RF pregabalin [Lyrica] 200 mg capsule 200 mg PO BID Qty: 60 5RF levalbuterol tartrate 45 mcg/actuation HFA aerosol inhaler 2 puff inhalation Q4-6H PRN (Reason: shortness of breath) 30 Days Qty: 15 3RF trazodone 100 mg tablet 100 mg PO BEDTIME 90 Days Qty: 90 0RF ondansetron 4 mg tablet,disintegrating 4 mg PO Q6H PRN (Reason: nausea and vomiting) Qty: 14 0RF morphine 15 mg tablet 15 mg PO Q8H PRN (Reason: pain) Qty: 15 0RF Rx Instructions: Partial Fill upon patient request. mesalamine 1.2 gram tablet,delayed release (DR/EC) 2.4 g PO DAILY pantoprazole 40 mg tablet,delayed release (DR/EC) 40 mg PO BID@0630,1630 Trulicity 1.5 mg/0.5 mL pen injector 1.5 mg subcut TH@0900 famotidine 20 mg tablet 20 mg PO BEDTIME 90 Days Qty: 90 1RF (DME) FreeStyle Lite Strips Strip MISCELLANEOUS DAILY Qty: 100 1RF Rx Instructions: Use 1 test strip three times a day albuterol sulfate 90 mcg/actuation HFA aerosol inhaler 2 inh inhalation Q4H PRN (Reason: Shortness Of Breath Or Wheezing) Held budesonide 0.5 mg/2 mL suspension for nebulization 0.25 mg inhalation BID 30 Days Qty: 60 3RF Hold Instructions: Resume on 10/23/23. hold until on breo, follow up with pulmonary for further use. prednisone 5 mg tablet 5 mg PO DAILY 30 Days Qty: 30 3RF Hold Instructions: Resume on 10/08/23. prednisone 10 mg tablet See Taper PO DIRECTED Qty: 30 0RF Hold Instructions: Resume on 10/08/23. Taper: Prednisone 40 mg daily for 3 Days and 0 Hour 30 mg daily for 3 Days and 0 Hour 20 mg daily for 3 Days and 0 Hour 10 mg daily for 3 Days and 0 Hour Rx Instructions: see taper instructions Discontinued doxycycline monohydrate 100 mg Capsule 100 mg PO BID Qty: 6 0RF Discharge Orders: Discharge Order (Routine); Ordered 10/04/23 Ordered By: Nano Raphael Diet: Advance to usual diet Activity on Discharge: As tolerated Stand Alone Forms: Patient Portal Discharge page Care Plan Goals: ` Health Concerns: Patient was admitted for asthma(mild intermittent) exacerbation patient also had recent URI with parainfluenza.-started on steroids, nebulizer, antibiotics: Patient seems to improved to the baseline. No shortness of breath, sats are fine. Patient will be going home with p.o. steroids prednisone 40 mg for 4 days, but budesonide switched to Breo. Complete course of azithromycin for 5 more days. Follow-up with Pulmonary out patiently-hold budesonide until on Breo. Further management out patiently. Plan of Treatment: As above. Assessment: As above.
--- NOTE | 2023-10-04 10:28 | MHC.CM.PN ---
Addendum entered by Chasity Marcus 10/04/23 10:37: PT IS REQUESTING TO WALK HOME, DECLINES RIDE. Original Note: DP: PT HAS BEEN MEDICALLY CLEARED FOR DC HOME, NO SERVICES. FAMILY WILL TRANSPORT.
== END 2023-10-04 10:42 | disposition home or self-care (01) | DRG 202 ==
LOC: HO.ED 17:46 → HO.EDOVER 19:32 → HO.S3 19:56
PROVIDERS: Physician Assistant; Admitting Provider Student in an Organized Health Care Education/Training Program; Emergency Provider Emergency Medicine; PCP Internal Medicine; Visit Provider Internal Medicine
DX: J45.21 Mild intermittent asthma with (acute) exacerbation (principal); J44.1 Chronic obstructive pulmonary disease with (acute) exacerbation; E11.65 Type 2 diabetes mellitus with hyperglycemia; K21.9 Gastro-esophageal reflux disease without esophagitis; F39 Unspecified mood [affective] disorder; C50.919 Malignant neoplasm of unspecified site of unspecified female breast; I25.10 Atherosclerotic heart disease of native coronary artery without angina pectoris; Z95.5 Presence of coronary angioplasty implant and graft; F17.210 Nicotine dependence, cigarettes, uncomplicated; Z20.822 Contact with and (suspected) exposure to COVID-19; Z71.6 Tobacco abuse counseling; Z79.51 Long term (current) use of inhaled steroids; Z79.811 Long term (current) use of aromatase inhibitors; Z79.899 Other long term (current) drug therapy
CPT/HCPCS: 36415; 71045; 71046; 80048; 80053; 80076; 81001; 82947; 83605; 83735; 83880; 84145; 84484; 85025; 85610; 87040; 87502; 87635; 93005; 94640; 99221; 99222; 99285; J0456; J1200; J1650; J2270; J2405; J2543; J2920; J2930

== ENCOUNTER → 2023-10-02 19:28 | Outpatient (BNV) | payer MEDICARE, MEDICAID, SELFPAY ==
[2023-09-19 08:39] VITALS: BP 96/60; BP 96/66; BMI 22.5
== END ==
PROVIDERS: Admitting Provider Student in an Organized Health Care Education/Training Program; Emergency Provider Emergency Medicine; PCP Internal Medicine; Visit Provider Student in an Organized Health Care Education/Training Program
DX: J44.1 Chronic obstructive pulmonary disease with (acute) exacerbation (principal)
CPT/HCPCS: 99222; 99232; 99239

== ENCOUNTER → 2023-10-02 19:28 | Outpatient (BNV) | payer MEDICARE, MEDICAID, SELFPAY ==
[2023-09-19 08:39] VITALS: BP 96/60; BP 96/66; BMI 22.5
== END ==
PROVIDERS: Admitting Provider Student in an Organized Health Care Education/Training Program; Emergency Provider Emergency Medicine; PCP Internal Medicine; Visit Provider Internal Medicine
DX: F17.200 Nicotine dependence, unspecified, uncomplicated (principal); J30.9 Allergic rhinitis, unspecified; J45.909 Unspecified asthma, uncomplicated; J44.1 Chronic obstructive pulmonary disease with (acute) exacerbation; J68.3 Other acute and subacute respiratory conditions due to chemicals, gases, fumes and vapors
CPT/HCPCS: 99223

== ENCOUNTER 2023-10-08 08:43 | Outpatient (AMB) | payer MEDICARE, MEDICAID, SELFPAY ==
[2023-07-16 10:06] VITALS: BP 96/60; BP 96/66
[2023-08-12 14:54] VITALS: BP 96/66; BMI 22.5
--- NOTE | 2023-10-08 08:56 | A.OFFVIS_ITS ---
Intake Intake Visit Reasons: Flank pain Intake Note: New Patient presents for initial visit for kidney stone Urology Medications: none Blood Thinner: aspirin Plow Mechanic Required: No Accompanied by: Self / Same As Patient Allergies dog dander [DOGS] Allergy (Intermediate, Verified 10/08/23 09:39) Respiratory distress shellfish derived Allergy (Intermediate, Verified 10/08/23 09:39) Hives methylprednisolone Allergy (Verified 10/08/23 09:39) Rash etanercept [From Enbrel] Adverse Reaction (Intermediate, Verified 10/08/23 09:39) Facial Swelling ibuprofen [Ibuprofen] Adverse Reaction (Intermediate, Verified 10/08/23 09:39) STOMACH UPSET, abdominal pain, nausea and vomiting metformin Adverse Reaction (Intermediate, Verified 10/08/23 09:39) Diarrhea metronidazole [From FLAGYL] Adverse Reaction (Intermediate, Verified 10/08/23 09:39) Diarrhea prednisone Adverse Reaction (Intermediate, Verified 10/08/23 09:39) hallucinations, higher than 20 Medication List - Last Reconciled 10/08/23 by ARTEMIO Pagan- albuterol sulfate 90 mcg/actuation 2 inhalations inhalation Q4H PRN aspirin 81 mg PO DAILY 90 days blood sugar diagnostic (FreeStyle Lite Strips) Use 1 test strip three times a day budesonide 0.25 mg inhalation BID 30 days dulaglutide (Trulicity) 1.5 mg subcut TH@0900 famotidine 20 mg PO BEDTIME 90 days fluticasone furoate-vilanterol 200-25 mcg/dose (Breo Ellipta) 1 inh inhalation RDAILY ipratropium bromide 2.5 mL inhalation Q6H PRN lancets (FreeStyle Lancets) Use 1 lancet once a day letrozole 2.5 mg PO DAILY levalbuterol tartrate 45 mcg/actuation 2 puffs inhalation Q4-6H PRN 30 days mesalamine 2.4 grams PO DAILY morphine 15 mg PO Q8H PRN ondansetron 4 mg PO Q6H PRN pantoprazole 40 mg PO BID@0630,1630 pen needle, diabetic (Comfort EZ Pen [place]) Use 1 pen needle 6 times a day prednisone See Taper mg PO DIRECTED prednisone 40 mg (2 x 20 mg) PO DAILY prednisone 5 mg PO DAILY 30 days pregabalin (Lyrica) 200 mg PO BID pyridoxine (vitamin B6) 100 mg PO DAILY 90 days trazodone 100 mg PO BEDTIME 90 days walker with seat HPI HPI Comments History of Present Illness Details Sosa is a very pleasant 63-year-old Nepali-speaking female patient of Dr. Jose Wasserman. She has a past medical history of colitis, anxiety, coronary artery disease, hyperlipidemia, hypertension, type 2 diabetes, ACD, COPD, GERD, CVA, bipolar disorder, dyslipidemia, insomnia, hypothyroidism, vitamin-D deficiency, osteoporosis, depression, CAD fibromyalgia, and irritable bowel syndrome. She presents to the office today as a new patient for nephrolithiasis. In discussion with the patient today she reports to be doing and feeling well. She reports having had experienced flank pain approximately 2 months ago at which time a renal ultrasound was ordered for further assessment evaluation as well as a CT KUB. These results reviewed with the patient today. The kidneys are normal in size, shape, and attenuation. There is a 2 mm nonobstructing right mid to lower calculus. No hydronephrosis, hydroureter, or additional calculi seen. No perinephric stranding. The bladder is unremarkable. Patient denies any past medical history or surgical intervention regarding nephrolithiasis. She reports pain has since subsided. Discussed at length potential causes of nephrolithiasis. When asked she does report to drinking approximately one 16 oz bottle of water daily. Discussed metabolic workup. When asked she denies urinary urgency, urinary frequency, incontinence, nocturia, hematuria, dysuria, foul smelling urine, changes to urinary stream, flank pain, fever, and or chills. She is happy with her current voiding parameters. In office urinalysis results reviewed with the patient today. She otherwise offers no issues or concerns. [facility] Medical History Acute respiratory distress Hospital discharge follow-up Tendonitis of ankle or foot Colitis Cough Anxiety CAD (coronary artery disease) HLD (hyperlipidemia) HTN (hypertension) T2DM (type 2 diabetes mellitus) COPD exacerbation Hyperkalemia Atherosclerotic cardiovascular disease GERD (gastroesophageal reflux disease) CVA (cerebral vascular accident) Breast pain, right Rash Bloody diarrhea PAD (peripheral artery disease) Hyperlipidemia LDL goal <100 COPD (chronic obstructive pulmonary disease) Infiltrating ductal carcinoma of left breast, stage 2 Insomnia Dyslipidemia Bipolar 1 disorder, depressed Cough Restrictive airway disease Hypothyroid IDDM (insulin dependent diabetes mellitus) Vitamin D deficiency Osteoporosis Hyperparathyroidism Thyroid nodule Depression Fibromyalgia Seropositive rheumatoid arthritis Reactive airways dysfunction syndrome Allergic rhinitis Irritable bowel Anxiety Bronchial asthma Diabetes type 2, uncontrolled Hypertension Surgical History Hx of sigmoidoscopy History of bronchoscopy Hx of endoscopy H/O cardiac catheterization History of lumpectomy of left breast History of pubovaginal sling History of esophagogastroduodenoscopy (EGD) History of tubal ligation History of colonoscopy History of bunionectomy of both great toes H/O: hysterectomy Family History Mother Diabetes HTN (hypertension) Uterus cancer Malignant tumor of head Breast cancer Father Diabetes HTN (hypertension) CVD (cardiovascular disease) Heart problem Maternal Aunt Breast cancer Brother Myocardial infarction S/P CABG x 4 Family/Other FH: mental illness Family/Other Lung cancer Other Mental health disorder Household Members: Family Household Members Other:: sister Housing: House Are you a primary team primary care physician to a significant other at home: No Do you presently have visiting nurse or other home services: Yes (sister is pt's business taxes specialist) Unable to assess alcohol history related to: Unknown Alcohol intake: never Patient Tobacco Use Status: Current everyday Tobacco user Tobacco use type: Cigarette Cigarette Packs Per Day: 0.5 Cigarettes Per Day: 3 Years Smoked: 12 e-Cigarette/Vaping Use: Never Used Second Hand Smoke Exposure: No Substance Use Type: Marijuana Advance Directives Date on File: 12/22/21 service: No Current occupational status: disabled Current occupation: rt handed Cognitive needs: No Hearing needs: No Vision needs: Yes Results AMB Urinalysis, Automated UA Leukoctes 0 [place]/uL Last Edit by Venkat Meade on 10/08/23 09:09 UA Nitrite Negative Last Edit by Venkat Meade on 10/08/23 09:09 UA Urobilinogen 0.2 mg/dL Last Edit by Venkat Meade on 10/08/23 09:09 UA Protein 15 mg/dL Last Edit by Venkat Meade on 10/08/23 09:09 UA pH 6.5 Last Edit by Venkat Meade on 10/08/23 09:09 UA Blood 0 Mike/uL Last Edit by Venkat Meade on 10/08/23 09:09 UA Specific [place] 1.015 Last Edit by Venkat Meade on 10/08/23 09:09 UA Ketone Negative Last Edit by Venkat Meade on 10/08/23 09:09 UA Bilirubin 0 mg/dL Last Edit by Venkat Meade on 10/08/23 09:09 UA Glucose 0 mg/dL Last Edit by Venkat Meade on 10/08/23 09:09 Results Reviewed Results Reviewed: Laboratory Last Values Urine pH (Auto) 6.5 10/08/23 09:01 Specific [place] (Auto) 1.015 10/08/23 09:01 Urine Protein (Auto) 15 mg/dL 10/08/23 09:01 Glucose (UA)(Auto) 0 mg/dL 10/08/23 09:01 Urine Ketones (Auto) Negative 10/08/23 09:01 Urine Blood (Auto) 0 Mike/uL 10/08/23 09:01 Urine Nitrite (Auto) Negative 10/08/23 09:01 Urine Bilirubin (Auto) 0 mg/dL 10/08/23 09:01 Urine Urobilinogen (Auto) 0.2 mg/dL 10/08/23 09:01 Leukocyte Esterase (Auto) 0 [place]/uL 10/08/23 09:01 Date of Service: 09/26/23 EXAMINATION: CT ABDOMEN AND PELVIS WITHOUT CONTRAST FINDINGS: LUNG BASES: The visualized lung bases are unremarkable. LIVER, GALLBLADDER, AND BILIARY TREE: The liver is normal in size, shape, and attenuation. No focal hepatic lesion or biliary ductal dilatation is present. The gallbladder is unremarkable with no evidence of radiopaque gallstones, gallbladder wall thickening, or obvious pericholecystic inflammatory changes. PANCREAS: Unremarkable. SPLEEN: Unremarkable. ADRENAL GLANDS: Unremarkable. KIDNEYS AND URETERS: The kidneys are normal in size, shape, and attenuation. There is a 2 mm nonobstructing right mid to lower calculus. No hydronephrosis, hydroureter, or additional calculi seen. No perinephric stranding. BLADDER: Unremarkable. GASTROINTESTINAL TRACT: The small and large bowel are unremarkable aside from colonic diverticula without diverticulitis. The appendix is unremarkable. ABDOMINAL WALL: No significant hernia is appreciated. Air in right abdominal wall presumably secondary to subcutaneous injection. Please correlate with history LYMPH NODES: No retroperitoneal lymphadenopathy. VASCULAR: There is calcific plaque in the abdominal aorta and iliofemoral vessels without aneurysm. PELVIC VISCERA: Uterus is not seen. An abnormal adnexal mass is not present. No free intraperitoneal fluid present. OSSEOUS STRUCTURES: Unremarkable. IMPRESSION: 1. A cause for the patient's right flank pain has not been found. 2. There is a 2 mm nonobstructing right renal calculus. 3. Colonic diverticulosis without diverticulitis. 4. Other incidental findings as described above. Assessment & Plan Assessment & Plan (1) Kidney stones: Code(s): N20.0 - Calculus of kidney Plan In office urinalysis results reviewed with the patient today; as noted above. Recent CT and ultrasound results reviewed with the patient today; as noted above. Discussed and stressed the importance of drinking plenty of water daily. Discussed further metabolic workup. Start vitamin B6 as discussed and prescribed. Patient denies any bothersome urinary issues or concerns at this time. Patient reports be happy with current voiding parameters. Renal ultrasound in 6 months. Follow-up in 6 months with imaging to be completed prior; or sooner with any issues, concerns, and or questions. Orders: Orders AMB Urinalysis Automated Today Z13.9 - Encounter for screening, unspecified US renal BI 6 Months N20.0 - Calculus of kidney Medications: New pyridoxine (vitamin B6) 100 mg PO DAILY 90 tabs 1RF 90 days N13.2 - Hydronephrosis with renal and ureteral calculous obstruction Patient Instructions: The patient had an opportunity to ask questions regarding the treatment plan. All questions were answered. Physical exam, labs, and imaging were discussed and reviewed in detail. As well as risks, benefits, and discussion of treatment choices. No major barriers to understanding were identified. The patient expressed understanding and agreement with the above treatment plan. The patient was made aware they should contact our office by phone for worsening of their current condition, the appearance of new symptoms, or with any questions or concerns. Compliance is encouraged with any medications and follow up testing that is ordered. It is a privilege to be allowed the opportunity to participate in? your urological care.? Again, if you have any questions or concerns If you have any questions or concerns please do not hesitate to contact me. The office is [phone]. This note is constructed using voice recognition software. While every effort has been made to ensure accuracy chief bank examiner errors may have been included. Yours sincerely, ARTEMIO Pagan- Quality Reporting (2019) Adult ([facility] 138/[birth year]/09/[birth year]) Smoking risk assessment performed?: Yes Patient Tobacco Use Status: Current everyday Tobacco user Coding Level of Care Code New Pt Level 4 (13883) Diagnoses Kidney stones N20.0
== END 2023-10-08 09:34 | disposition home or self-care (01) ==
PROVIDERS: PCP Internal Medicine; Visit Provider Nurse Practitioner Family
DX: N20.0 Calculus of kidney (principal)
CPT/HCPCS: 99204; 99214

== ENCOUNTER → 2023-10-08 08:43 | Outpatient (BNVA) | payer MEDICARE, MEDICAID, SELFPAY ==
[2023-09-19 08:39] VITALS: BP 96/60; BP 96/66; BMI 22.5
== END ==
PROVIDERS: PCP Internal Medicine; Visit Provider Nurse Practitioner Family
DX: N20.0 Calculus of kidney (principal)
CPT/HCPCS: 81003; 99202

== ENCOUNTER → 2023-10-15 08:13 | Outpatient (REF) | payer MEDICARE, MEDICAID, SELFPAY ==
[2023-09-19 08:39] VITALS: BP 96/60; BP 96/66; BMI 22.5
--- NOTE | ~2023-10-15 | NM_ITS ---
EXAMINATION: RADIONUCLIDE SOLID FOOD GASTRIC EMPTYING 4-HOUR STUDY CLINICAL INFORMATION: Early satiety. COMPARISON: None. TECHNIQUE: A standard meal consisting of 4 oz of Egg Beaters brand tagged with 1000 microcuries Tc-99m Sulfur Colloid, 8 oz water and 2 slices of toast with jelly was administered orally to the patient. Images were obtained using a dual head gamma camera in the anterior and posterior projections over of the stomach immediately post ingestion and at hourly intervals up to 4 hours post ingestion. The anterior and posterior counts at each time interval were averaged using the geometric mean and expressed as percentage of the immediate post ingestion counts. FINDINGS: There is good visualization of activity in the stomach immediately post ingestion. As the study progresses, there is delayed clearance of activity from the stomach and delayed visualization of progressively increasing small bowel activity. By the end of the study, there is significant retention noted in the stomach. Retention in the stomach at each time interval was: 1 hour 64% (normal 37%-90%) 2 hours 50% (normal 30%-60%) 3 hours 33% 4 hours 13% (normal 0%-10%) NM/NM gastric emptying study IMPRESSION: Abnormal grade 1 delayed 4 hour gastric emptying study. (For solid meal, rapid gastric emptying is less than 30% at 60 minutes. Delayed gastric emptying criteria is more than 60% remaining at 120 minutes or more than 10% at 240 minutes. The 4-hour value is the best discriminator of a normal or abnormal result). Gastric emptying study grading per JNMT Consensus Recommendations in 2008 (https://tech.snmjournals.org/content/36/144) Grade 1 (mild retention): 11-20% at 4h Grade 2 (moderate retention): 21-35% at 4h Grade 3 (severe retention): 36-50% at 4h Grade 4 (very severe retention): >50% retention at 4h
== END ==
LOC: HO.NUCMED 08:13
PROVIDERS: PCP Internal Medicine; Visit Provider Internal Medicine Gastroenterology
DX: R68.81 Early satiety (principal); E11.9 Type 2 diabetes mellitus without complications
CPT/HCPCS: 78264; A9541

== ENCOUNTER 2023-11-01 08:56 | Inpatient (IN) | payer MEDICARE, MEDICAID, SELFPAY ==
--- NOTE | 2023-11-01 | ECG_ITS ---
Test Reason : TACHY Blood Pressure : / mmHG Vent. Rate : 111 BPM Atrial Rate : 111 BPM P-R Int : 134 ms QRS Dur : 080 ms QT Int : 318 ms P-R-T Axes : 081 085 067 degrees QTc Int : 432 ms Sinus tachycardia Otherwise normal ECG When compared with ECG of 02-OCT-2023 18:39, No significant change was found Referred By: Generic ED Physician Electronically Signed By:Joseph Salmon
--- NOTE | ~2023-11-01 | CT_ITS ---
EXAMINATION: CT ABDOMEN AND PELVIS WITH CONTRAST CLINICAL INFORMATION: Pain of left lower quadrant. COMPARISON: 09/26/2023 TECHNIQUE: Multidetector volumetric images were obtained from the superior aspect of the liver through the pubic symphysis following administration 85 mL of Omnipaque 350 intravenous contrast. Sagittal and coronal reformatted images were obtained on the technologist's workstation. This CT examination was performed using dose optimization techniques as appropriate, variously including the following: *Automated exposure control *Adjustment of mA and/or kV according to patient size (this includes techniques or standardized protocols for targeted exams where dose is matched to indication/reason for exam; i.e. extremities or head) *Use of iterative reconstruction technique DLP: 303 mGy-cm FINDINGS: LUNG BASES: No acute abnormality. No pulmonary consolidation or pleural effusion. HEPATOBILIARY: Liver has normal size and contour. The liver is mildly hypodense compared to the spleen on these portal venous phase images; this observation is equivocal for hepatic steatosis. No focal liver lesion. Gallbladder has a normal appearance. No radiopaque stones, wall thickening or pericholecystic fluid. No dilated bile ducts. PANCREAS: Mildly atrophied. No edema, pancreatic ductal dilatation or mass. SPLEEN: Normal. ADRENAL GLANDS: Normal. KIDNEYS AND URETERS: Kidneys are normal in size and enhance symmetrically. No renal mass, hydronephrosis or perinephric edema. A small 0.3 cm calyceal stone is present in the posterior right lower pole. The ureters are unremarkable. BLADDER: Normal. No calculi or wall thickening. BOWEL AND PERITONEUM: The stomach is underdistended and grossly normal. No dilated bowel loops. The appendix is normal. There are scattered diverticula of the colon. There are segments of the colon in which the wall is difficult to evaluate due to lack of bowel distention. There appears to be mild wall thickening of the ascending and transverse colon. There is circumferential thickening of the wall of the descending and sigmoid colon to the rectum, and there are some regions of subtle haziness of the pericolonic fat. The findings are consistent with colitis. No bowel wall pneumatosis, pneumoperitoneum or abscess. ABDOMINAL WALL: A very small fat-containing umbilical hernia is present. VASCULATURE: There is atherosclerotic calcification of the abdominal aorta and iliac arteries without aneurysm. The superior mesenteric artery is widely patent; no evidence of any flow-limiting stenosis or vessel occlusion. LYMPH NODES: No pathologic sized lymph nodes in the abdomen or pelvis. No inguinal lymphadenopathy. PELVIC VISCERA: Status post hysterectomy. No adnexal mass or pelvic fluid collection. MUSCULOSKELETAL: No acute or suspicious osseous abnormality. CT/CT abdomen pelvis w IV con IMPRESSION: * There are imaging findings of acute colitis but this is of uncertain cause. * Scattered diverticula of the colon without evidence of diverticulitis. * Again noted is a small stone of the lower pole of the right kidney. No hydronephrosis.
[2023-11-01 09:01] VITALS: BP 130/96; PULSE 121; RESP 20; TEMP 36.7; O2SAT 97; BMI 22.4
[2023-11-01 09:22] LABS: MANUAL DIFF FLAG NO
--- NOTE | 2023-11-01 09:22 | ED_ITS ---
HPI - Abdominal Pain General Chief Complaint: Abdominal Pain Stated Complaint: Abd Cramps Vomiting Time Seen by Provider: 11/01/23 08:59 Source: patient Mode of arrival: ambulatory Limitations: no limitations History of Present Illness HPI narrative: 63-year-old female presents hyperlipidemia, COPD, breast cancer, diabetes, Raynaud's, CAD, bipolar, fibromyalgia, rheumatoid off arthritis, Crohn's disease, presenting to the emergency department complaints of nausea, vomiting, diarrhea, abdominal pain worse in the left lower quadrant, hematochezia for the past 2 days. Patient reports she just feels overall unwell. She reports each time she tries to eat she ends up vomiting and she has brown diarrhea with blood in it. Patient reports she is on medications for Crohn's disease and is on mesalamine and taking as prescribed. Patient is followed by GI here at this facility. Denies fevers, chills, sick contacts, headache, vision changes, dizziness, weakness. Related Data Home Medications Medication Instructions Recorded Confirmed albuterol sulfate 90 mcg/actuation 2 inh inhalation Q4H PRN Shortness 08/23/23 10/08/23 aerosol inhaler Of Breath Or Wheezing mesalamine 1.2 gram tablet,delayed 2.4 g PO DAILY 09/27/23 10/08/23 release pantoprazole 40 mg tablet,delayed 40 mg PO BID@0630,1630 09/27/23 10/08/23 release Previous Rx's Medication Instructions Recorded lancets 28 gauge (FreeStyle #100 ea 06/07/22 Lancets) pen needle, diabetic 31 gauge x #200 ea 06/07/2204/02 (Comfort EZ Pen [place]) budesonide 0.5 mg/2 mL suspension 0.25 mg inhalation BID ASTHMA/COPD 01/04/23 for nebulization 30 days #60 mL walker #1 ea 02/08/23 letrozole 2.5 mg tablet 2.5 mg PO DAILY #90 tabs 02/12/23 aspirin 81 mg tablet,delayed 81 mg PO DAILY 90 days #90 tabs 06/30/23 release prednisone 5 mg tablet 5 mg PO DAILY for asthma 30 days 07/03/23 #30 tabs ondansetron 4 mg disintegrating 4 mg PO Q6H PRN nausea and 07/04/23 tablet vomiting #14 tabs famotidine 20 mg tablet 20 mg PO BEDTIME 90 days #90 tabs 08/09/23 pregabalin 200 mg capsule (Lyrica) 200 mg PO BID #60 caps 08/14/23 levalbuterol tartrate 45 2 puff inhalation Q4-6H PRN 08/20/23 mcg/actuation aerosol inhaler shortness of breath 30 days #15 grams morphine 15 mg immediate release 15 mg PO Q8H PRN pain #15 tabs 08/29/23 tablet blood sugar diagnostic (FreeStyle #100 ea 08/30/23 Lite Strips) trazodone 100 mg tablet 100 mg PO BEDTIME 90 days #90 tabs 09/27/23 prednisone 10 mg tablet See Taper PO DIRECTED #30 tabs 09/30/23 fluticasone furoate 200 1 inh inhalation RDAILY #60 ea 10/04/23 mcg-vilanterol 25 mcg/dose inhalation powder (Breo Ellipta) prednisone 20 mg tablet 40 mg (2 x 20 mg) PO DAILY #8 tabs 10/04/23 pyridoxine (vitamin B6) 100 mg 100 mg PO DAILY 90 days #90 tabs 10/08/23 tablet ipratropium bromide 0.02 % 2.5 ml inhalation Q6H PRN 10/22/23 solution for inhalation shortness of breath or wheezing #150 mL dulaglutide 1.5 mg/0.5 mL 1.5 mg (0.5 mL) subcut TH@0900 #6 10/28/23 subcutaneous pen injector mL (Trulicity) codeine 10 mg-guaifenesin 100 mg/5 10 ml PO Q4-6H PRN allergy 10/30/23 mL oral liquid symptoms/cough 30 days #473 mL Allergies Allergy/AdvReac Type Severity Reaction Status Date / Time dog dander [DOGS] Allergy Intermediate Respiratory Verified 10/08/23 09:39 distress shellfish derived Allergy Intermediate Hives Verified 10/08/23 09:39 methylprednisolone Allergy Rash Verified 10/08/23 09:39 etanercept [From Enbrel] AdvReac Intermediate Facial Verified 10/08/23 09:39 Swelling ibuprofen [Ibuprofen] AdvReac Intermediate STOMACH Verified 10/08/23 09:39 UPSET, abdominal pain, nausea and vomiting metformin AdvReac Intermediate Diarrhea Verified 10/08/23 09:39 metronidazole [From FLAGYL] AdvReac Intermediate Diarrhea Verified 10/08/23 09:39 prednisone AdvReac Intermediate hallucinations, Verified 10/08/23 09:39 higher than 20 Review of Systems Review of Systems Constitutional : No Weight loss, No Fever, No Chills, No Fatigue, No Malaise ENT/Mouth : No sore throat, No Rhinorrhea Eyes: No Eye Pain, No Swelling, No Redness Cardiovascular : No Chest Pain, No SOB, No Dyspnea on Exertion, No Orthopnea, No Edema, No Palpitations Respiratory : No Cough, No Sputum, No Wheezing Gastrointestinal : + Nausea, + Vomiting, + Diarrhea, No Constipation, + abdominal Pain, + Hematochezia, No Melena Genitourinary : No Dysuria, No Urinary Frequency, No Hematuria, Musculoskeletal : No joint pain, No Myalgias, No Joint Swelling Skin : No Skin Lesions, No rash Neuro : No Weakness, No Numbness, No Dizziness, No Headache Psych : No Anxiety/Panic, No Depression All other systems reviewed and are negative Yes all other systems are reviewed and are negative PMFSH Past Medical History Attestation statement: The following information was validated with the patient. Source: old records reviewed and nursing notes reviewed Medical History Acute respiratory distress Hospital discharge follow-up Tendonitis of ankle or foot Colitis Cough Anxiety CAD (coronary artery disease) HLD (hyperlipidemia) HTN (hypertension) T2DM (type 2 diabetes mellitus) COPD exacerbation Hyperkalemia Atherosclerotic cardiovascular disease GERD (gastroesophageal reflux disease) CVA (cerebral vascular accident) Breast pain, right Rash Bloody diarrhea PAD (peripheral artery disease) Hyperlipidemia LDL goal <100 COPD (chronic obstructive pulmonary disease) Infiltrating ductal carcinoma of left breast, stage 2 Insomnia Dyslipidemia Bipolar 1 disorder, depressed Cough Restrictive airway disease Hypothyroid IDDM (insulin dependent diabetes mellitus) Vitamin D deficiency Osteoporosis Hyperparathyroidism Thyroid nodule Depression Fibromyalgia Seropositive rheumatoid arthritis Reactive airways dysfunction syndrome Allergic rhinitis Irritable bowel Anxiety Bronchial asthma Diabetes type 2, uncontrolled Hypertension Surgical History Hx of sigmoidoscopy History of bronchoscopy Hx of endoscopy H/O cardiac catheterization History of lumpectomy of left breast History of pubovaginal sling History of esophagogastroduodenoscopy (EGD) History of tubal ligation History of colonoscopy History of bunionectomy of both great toes H/O: hysterectomy Family History Family History Mother Diabetes HTN (hypertension) Uterus cancer Malignant tumor of head Breast cancer Father Diabetes HTN (hypertension) CVD (cardiovascular disease) Heart problem Maternal Aunt Breast cancer Brother Myocardial infarction S/P CABG x 4 Family/Other FH: mental illness Family/Other Lung cancer Other Mental health disorder Social History Social History Household Members: Family Household Members Other:: sister Housing: House Are you a primary pet caretaker to a significant other at home: No Do you presently have visiting nurse or other home services: Yes (sister is pt's windows technical specialist) Unable to assess alcohol history related to: Unknown Alcohol intake: never Patient Tobacco Use Status: Current everyday Tobacco user Tobacco use type: Cigarette Cigarette Packs Per Day: 0.5 Cigarettes Per Day: 3 Years Smoked: 12 Smoked in Last 30 Days: Yes e-Cigarette/Vaping Use: Never Used Second Hand Smoke Exposure: No Use of substances other than those prescribed or required for medical reasons: Yes Substance Use Type: Marijuana Substance Use Frequency: Occasionally Advance Directives: Yes Advance Directives on File: Yes Advance Directives Date on File: 12/22/21 Patient : No service: No Current occupational status: disabled Current occupation: rt handed Cognitive needs: No Hearing needs: No Vision needs: Yes Physical Exam ED Vital Signs: Vital Signs - 24 hr 11/01/23 09:01 Temperature 98.1 F Pulse Rate 121 H Respiratory Rate 20 Blood Pressure 130/96 H Pulse Oximetry 97 Oxygen Delivery Method Room Air BMI result Body Mass Index 22.4 Patient noted to be tachycardic. Likely secondary to anxiety/pain Appearance: Alert.? Oriented X3.? No acute distress.? Head: Normocephalic, atraumatic, no step-offs or deformities Eyes: Pupils equal, round and reactive to light.? ENT: Pharynx normal.? Neck: Normal inspection.? Neck supple.? CVS: Normal heart rate and rhythm.? Pulses normal.? Respiratory: No respiratory distress.? Breath sounds normal.? Abdomen: Soft and diffusely tender worse in the left lower quadrant. Rectal exam: Nurse Radha Hernandez at bedside there is bright red blood per rectum..? Skin: Skin warm and dry.? Normal skin color.? Normal skin turgor.? Extremities: No lower extremity edema.? No calf ttp. 5/5 strength to bilateral upper and lower extremities Neuro: Oriented X 3.? No motor deficit.? No sensory deficit. CN 2-12 intact Course Reevaluation(s) Reevaluation #1: CBC with slight leukocytosis 11.8. Chemistry unremarkable no acute findings. Lipase normal. UA without infection. Stool guaiac positive for blood. CT abdomen pelvis with acute colitis of uncertain cause scattered diverticula. Patient having hard time with tolerating p.o.. Discuss this case with GI who recommends hospital admission, bowel rest and IV antibiotics. Plan hospital admission Time: 12:02 Medical Decision Making Medical Decision Making [facility] Narrative: 63-year-old female extensive abdominal history presents to the emergency department complaints of diffuse abdominal pain nausea, vomiting, diarrhea, hematochezia x2 days Physical exam with bright red blood per rectum and diffuse abdominal pain throughout worse in the left lower quadrant. Patient noted to be tachycardic during initial vitals. History and physical exam concerning for colitis versus diverticulitis versus Crohn's flare. Unlikely acute abdomen, mesenteric ischemia, appendicitis, cholecystitis, pancreatitis. Plan at this time labs, OBS, CT abdomen and pelvis, urine. Will give morphine for pain control. In so friend for nausea vomiting Differential Diagnosis Differential Diagnoses: The differential diagnosis associated with the presentation includes History and physical exam concerning for colitis versus diverticulitis versus Crohn's flare. Unlikely acute abdomen, mesenteric ischemia, appendicitis, cholecystitis, pancreatitis. Admission/Observation Consideration of admission/observation: Escalation of care including admission/observation considered Likely Consult Healthcare Provider Management of the patient was discussed with: Hospitalist Lab Data [facility] Lab Attestation statement: I reviewed the patient's lab results. 11/01/23 09:18 11/01/23 09:43 Labs: Lab Results 11/01/23 11/01/23 11/01/23 Range/Units 09:18 09:22 09:43 WBC 11.8 H (4.8-10.8) X10*3/uL RBC 4.82 (4.20-5.50) X10*6/uL Hgb 13.2 (12.0-16.0) g/dl Hct 40.7 (37.0-47.0) % MCV 84.4 (80.0-98.0) fL MCH 27.4 (27.0-33.0) pg MCHC 32.4 (31.0-35.0) g/dl RDW 14.5 (11.0-16.0) % Plt Count 312 (160-400) X10*3/uL MPV 10.7 (9.4-12.3) fL Immature Gran % (Auto) 0.4 (0.0-0.4) % Neut % (Auto) 72.1 (45-73) % Lymph % (Auto) 21.4 (20-40) % [place] % (Auto) 5.6 (2-11) % Eos % (Auto) 0.2 (0-4) % Baso % (Auto) 0.3 (0-2) % Lymph # (Auto) 2.5 (1.2-4.9) X10*3/uL [place] # (Auto) 0.7 (0.1-1.2) X10*3/uL Eos # (Auto) 0.0 (0.0-0.4) X10*3/uL Baso # (Auto) 0.0 (0.0-0.2) X10*3/uL Abs Immat Gran (auto) 0.05 H (0.00-0.03) X10*3/uL Absolute Neuts (auto) 8.5 H (2.0-8.3) x10*3/uL Absolute Nucleated RBC 0.000 (0.0-0.012) X10*3/uL Nucleated RBC % (auto) 0.0 (0.0-0.2) /100WBC Sodium 138 (135-145) mmol/L Potassium 4.0 (3.3-5.1) mmol/L Chloride 109 H (96-108) mmol/L Carbon Dioxide 25 (22-29) mmol/L Anion Gap 8 L (12-20) BUN 8 L (9-16) mg/dL Creatinine 0.84 (0.5-1.4) mg/dL Estim Creat Clear Calc 45.4 Estimated GFR > 60 Random Glucose 151 H (60-115) mg/dL Calcium 8.6 D (8.4-10.2) mg/dL Magnesium 1.9 (1.6-2.6) mg/dL Total Bilirubin 0.5 (0.0-1.0) mg/dL AST 13 (5-31) U/L ALT 10 (0-31) U/L Alkaline Phosphatase 71 (39-117) U/L Total Protein 6.3 L (6.5-8.0) g/dL Albumin 3.5 (3.5-5.0) g/dL Lipase 22 (8-78) U/L Urine Color Urine Appearance Urine pH (5.0-9.0) Ur Specific [place] (1.005-1.025) Urine Protein (Neg-Trace) mg/dL Urine Glucose (UA) (Negative) mg/dL Urine Ketones (Negative) mg/dL Urine Blood (Negative) Urine Nitrite (Negative) Ur Leukocyte Esterase (Negative) Urine RBC (0-2) /HPF Urine WBC (0-5) /HPF Ur Squamous Epith Cells (0-2) /HPF Urine Bacteria (None Seen) Hyaline Casts (0-2) /LPF Urine Test (NEGATIVE) Stool Occult Blood POSITIVE (NEGATIVE) COVID-19 ([facility]) Negative (Negative) COVID-19 Clin Com See Note 11/01/23 11/01/23 Range/Units 09:45 09:46 WBC (4.8-10.8) X10*3/uL RBC (4.20-5.50) X10*6/uL Hgb (12.0-16.0) g/dl Hct (37.0-47.0) % MCV (80.0-98.0) fL MCH (27.0-33.0) pg MCHC (31.0-35.0) g/dl RDW (11.0-16.0) % Plt Count (160-400) X10*3/uL MPV (9.4-12.3) fL Immature Gran % (Auto) (0.0-0.4) % Neut % (Auto) (45-73) % Lymph % (Auto) (20-40) % [place] % (Auto) (2-11) % Eos % (Auto) (0-4) % Baso % (Auto) (0-2) % Lymph # (Auto) (1.2-4.9) X10*3/uL [place] # (Auto) (0.1-1.2) X10*3/uL Eos # (Auto) (0.0-0.4) X10*3/uL Baso # (Auto) (0.0-0.2) X10*3/uL Abs Immat Gran (auto) (0.00-0.03) X10*3/uL Absolute Neuts (auto) (2.0-8.3) x10*3/uL Absolute Nucleated RBC (0.0-0.012) X10*3/uL Nucleated RBC % (auto) (0.0-0.2) /100WBC Sodium (135-145) mmol/L Potassium (3.3-5.1) mmol/L Chloride (96-108) mmol/L Carbon Dioxide (22-29) mmol/L Anion Gap (12-20) BUN (9-16) mg/dL Creatinine (0.5-1.4) mg/dL Estim Creat Clear Calc Estimated GFR Random Glucose (60-115) mg/dL Calcium (8.4-10.2) mg/dL Magnesium (1.6-2.6) mg/dL Total Bilirubin (0.0-1.0) mg/dL AST (5-31) U/L ALT (0-31) U/L Alkaline Phosphatase (39-117) U/L Total Protein (6.5-8.0) g/dL Albumin (3.5-5.0) g/dL Lipase (8-78) U/L Urine Color Dark Yellow Urine Appearance Clear Urine pH 6.5 (5.0-9.0) Ur Specific [place] 1.025 (1.005-1.025) Urine Protein Trace (Neg-Trace) mg/dL Urine Glucose (UA) Negative (Negative) mg/dL Urine Ketones Trace (Negative) mg/dL Urine Blood Negative (Negative) Urine Nitrite Negative (Negative) Ur Leukocyte Esterase Trace H (Negative) Urine RBC 3-5 H (0-2) /HPF Urine WBC 0-5 (0-5) /HPF Ur Squamous Epith Cells 0-2 (0-2) /HPF Urine Bacteria None Seen (None Seen) Hyaline Casts 0-2 (0-2) /LPF Urine Test NEGATIVE (NEGATIVE) Stool Occult Blood (NEGATIVE) COVID-19 ([facility]) (Negative) COVID-19 Clin Com Independent Interpretation I performed an independent interpretation of an: CT Scan Radiology Impression Discussion of test interpretation with radiology: I have reviewed the radiologist's reading. External Record Review External record reviewed: Inpatient record, Office record, Outpatient record, Prior outpatient labs, Prior outpatient radiology, Primary care record and Outside ED record Chronic Conditions Patient?s care impacted by: Other (Irritable bowel disease) Medications Administered Discontinued Medications Generic Name Dose Route Start Last Admin Trade Name Freq PRN Reason Stop Dose Admin Sodium Chloride 1,000 mls @ 999 mls/hr 11/01/23 09:00 11/01/23 10:40 Ns IV 11/01/23 10:00 Infused .Q1H1M ELDER Infusion Iohexol 85 ml 11/01/23 10:45 11/01/23 10:46 Iohexol 350 Mg/Ml 100 Ml Infus..Btl IV 11/01/23 10:46 85 ml ONCE ONE Administration Morphine Sulfate 4 mg 11/01/23 09:34 11/01/23 10:11 Morphine Sulfate 4 Mg/Ml Cartridge IVPUSH 11/01/23 09:35 4 mg ONCE ONE Administration Protocol Ondansetron HCl 4 mg 11/01/23 09:34 11/01/23 10:12 Ondansetron Hcl 4 Mg/2 Ml Vial IVPUSH 11/01/23 09:35 4 mg ONCE ONE Administration Critical Care Time Critical Care Time Critical Care Time: Yes Total Critical Care Time: 45 Attestation: I attest to this time spent taking care of the patient, obtaining history, physical, reviewing labs, imaging, speaking to my attending, speaking to specialist. Discharge Plan Discharge Clinical Impression: Colitis, Bloody diarrhea Patient Disposition: Admitted As Inpatient
[2023-11-01 09:23] LABS: Basophils Percent Auto 0.3 % (0-2); Eosinophils Percent Auto 0.2 % (0-4); Hematocrit 40.7 % (37.0-47.0); Hemoglobin 13.2 g/dl (12.0-16.0); Imm Gran Abs Auto 0.05 X10*3/uL (0.00-0.03); Imm Gran Pct Auto 0.4 % (0.0-0.4); Lymphocytes Absolute Auto 2.5 X10*3/uL (1.2-4.9); Lymphocytes Percent Auto 21.4 % (20-40); Mean Corpuscular HGB Conc 32.4 g/dl (31.0-35.0); Mean Corpuscular Hemoglobin 27.4 pg (27.0-33.0); Mean Corpuscular Volume 84.4 fL (80.0-98.0); Mean Platelet Volume 10.7 fL (9.4-12.3); Monocytes Absolute Auto 0.7 X10*3/uL (0.1-1.2); Monocytes Percent Auto 5.6 % (2-11); Neutrophils Absolute Auto 8.5 x10*3/uL (2.0-8.3); Neutrophils Percent Auto 72.1 % (45-73); Platelet Count 312 X10*3/uL (160-400); Red Blood Count 4.82 X10*6/uL (4.20-5.50); Red Cell Distribution Width 14.5 % (11.0-16.0); White Blood Count 11.8 X10*3/uL (4.8-10.8)
[2023-11-01] MEDS: 0.9 % Sodium Chloride 1,000 ML 999 ML IV ×2 (09:25→13:34)
[2023-11-01 09:47] LABS: OBS Int Ctl Valid YES; OBS1 POSITIVE (NEGATIVE)
[2023-11-01 09:55] LABS: COVID-19 Test Negative (Negative); IDNOW Serial# BCCEAD1C
[2023-11-01 10:06] LABS: UPreg QC Valid YES; Urine Pregnancy NEGATIVE (NEGATIVE)
[2023-11-01 10:06] LABS: Appearance Urine Clear; Color Urine Dark Yellow; Glucose Urine UA Negative (Negative); Leukocyte Esterase Urine Trace (Negative); Nitrite Urine Negative (Negative); PH 6.5 (5.0-9.0); Specific Gravity - Urine 1.025 (1.005-1.025); UMIC TRIGGER UACC YES; Urine Blood Negative (Negative); Urine Ketones Trace mg/dL (Negative); Urine Protein Trace mg/dL (Neg-Trace)
[2023-11-01 10:11] LABS: Bacteria Urine None Seen (None Seen); Hyaline Casts Urine 0-2 /LPF (0-2); Squamous Epithelial Cell Urine 0-2 /HPF (0-2); WBC Urine 0-5 /HPF (0-5)
[2023-11-01] MEDS: Morphine Sulfate 4 MG/ML CARTRIDGE IVPUSH ×3 (10:11→22:07)
[2023-11-01] MEDS: ondansetron HCL 4 MG/2 ML VIAL IVPUSH (10:12)
[2023-11-01 10:15] LABS: Alanine Aminotransferase 10 U/L (0-31); Albumin Level 3.5 g/dL (3.5-5.0); Alkaline Phosphatase 71 U/L (39-117); Anion Gap 8 (12-20); Aspartate Amino Transferase 13 U/L (5-31); Bilirubin Total 0.5 mg/dL (0.0-1.0); Blood Urea Nitrogen 8 mg/dL (9-16); Calcium 8.6 mg/dL (8.4-10.2); Carbon Dioxide 25 mmol/L (22-29); Chloride 109 mmol/L (96-108); Creatinine Clr Calc Pharmacy 45.4; Estimated Glomerular Filt Rate > 60; Glucose Random 151 mg/dL (60-115); Lipase 22 U/L (8-78); Magnesium 1.9 mg/dL (1.6-2.6); Sodium 138 mmol/L (135-145); Total Protein 6.3 g/dL (6.5-8.0)
[2023-11-01] MEDS: iohexoL 350 MG/ML 100 ML INFUS..BTL 85 ML IV (10:46)
--- NOTE | 2023-11-01 13:29 | PHA.MEDREC ---
Addendum entered by Sherron Perry formerly [facility] 11/01/23 13:30: patient also mentioned she only takes her pantoprazole once daily and only takes her cough medication about twice daily. Original Note: Pharmacy Consult ? Medication Reconciliation Pharmacy has completed the medication reconciliation. Patient mentioned she was just discontinued off breo and placed on trelegy.
[2023-11-01] MEDS: levoFLOXacin/D5W 500 MG/100 ML PIGGYBACK 100 MG IV (13:34)
[2023-11-01 13:37] VITALS: BP 113/74; PULSE 87; RESP 16; TEMP 37; O2SAT 94
--- NOTE | 2023-11-01 13:41 | PC.NURSE ---
patient complaining of increasing abd pain at this time. medicated per the MAR - antibiotics and fluids infusing. call devi within reach, no obvious signs/symptoms of distress noted.
[2023-11-01 13:43] LABS: Lactic Acid 0.7 mmol/L (0.5-2.0)
[2023-11-01] MEDS: metroNIDAZOLE/NS 500 MG/100 ML PIGGYBACK 100 MG IV (15:25)
--- NOTE | 2023-11-01 16:26 | PM.IMHP ---
History of Present Illness Date of Service: 11/01/23 Attending physician on admission: Nano Raphael Chief Complaint: abd pain ,diarrahe bloody 63y/o F with hyperlipidemia, COPD, breast cancer, diabetes, Raynaud's, CAD, bipolar, fibromyalgia, rheumatoid off arthritis, Crohn's disease came with c/o-nausea, vomiting, diarrhea, abdominal pain worse in the left lower quadrant, hematochezia for the past 2 days. Patient reports she just feels overall unwell. She reports each time she tries to eat she ends up vomiting and she has brown diarrhea with blood in it. Patient reports she is on medications for Crohn's disease and is on mesalamine and taking as prescribed. Has mild leukocytosis, CT abdomen: There are imaging findings of acute colitis but this is of uncertain cause. Patient is followed by GI here at this facility. Denies fevers, chills, sick contacts, headache, vision changes, dizziness, weakness. ed d/w GI-plan and p.o., hydration, IV antibiotics for possible colitis. Patient received levaquin/flagyl. Review of Systems Review of Systems: As above. [facility] Medical History Acute respiratory distress Hospital discharge follow-up Tendonitis of ankle or foot Colitis Cough Anxiety CAD (coronary artery disease) HLD (hyperlipidemia) HTN (hypertension) T2DM (type 2 diabetes mellitus) COPD exacerbation Hyperkalemia Atherosclerotic cardiovascular disease GERD (gastroesophageal reflux disease) CVA (cerebral vascular accident) Breast pain, right Rash Bloody diarrhea PAD (peripheral artery disease) Hyperlipidemia LDL goal <100 COPD (chronic obstructive pulmonary disease) Infiltrating ductal carcinoma of left breast, stage 2 Insomnia Dyslipidemia Bipolar 1 disorder, depressed Cough Restrictive airway disease Hypothyroid IDDM (insulin dependent diabetes mellitus) Vitamin D deficiency Osteoporosis Hyperparathyroidism Thyroid nodule Depression Fibromyalgia Seropositive rheumatoid arthritis Reactive airways dysfunction syndrome Allergic rhinitis Irritable bowel Anxiety Bronchial asthma Diabetes type 2, uncontrolled Hypertension Family History Mother Diabetes HTN (hypertension) Uterus cancer Malignant tumor of head Breast cancer Father Diabetes HTN (hypertension) CVD (cardiovascular disease) Heart problem Maternal Aunt Breast cancer Brother Myocardial infarction S/P CABG x 4 Family/Other FH: mental illness Family/Other Lung cancer Other Mental health disorder Surgical History Hx of sigmoidoscopy History of bronchoscopy Hx of endoscopy H/O cardiac catheterization History of lumpectomy of left breast History of pubovaginal sling History of esophagogastroduodenoscopy (EGD) History of tubal ligation History of colonoscopy History of bunionectomy of both great toes H/O: hysterectomy Social History Household Members: Family Household Members Other:: sister Housing: Homeless Are you a primary after school caregiver to a significant other at home: No Do you presently have visiting nurse or other home services: Yes ([employer]) Unable to assess alcohol history related to: Unknown Alcohol intake: never Patient Tobacco Use Status: Current everyday Tobacco user Tobacco use type: Cigarette Cigarette Packs Per Day: 0.5 Cigarettes Per Day: 3 Years Smoked: 48 Smoked in Last 30 Days: Yes e-Cigarette/Vaping Use: Never Used Patient Interested in Nicotine Replacement: No Second Hand Smoke Exposure: No Use of substances other than those prescribed or required for medical reasons: No Substance Use Type: Marijuana Substance Use Frequency: Occasionally Currently Displaying Signs/Symptoms of Drug Intoxication Withdrawal: No Have you been hit, kicked, punched, or otherwise hurt by someone within the past year? If so, by whom?: No Do you feel safe in your current relationship?: No Current Relationship Is there a partner from a previous relationship who is making you feel unsafe now?: No Are you made to feel afraid or neglected: No Advance Directives: Yes Advance Directives on File: Yes Advance Directives Date on File: 12/22/21 Do you have thoughts of harming others: None Do you have a plan to hurt others: No Plan Recently lost weight without trying: No Eating poorly because of decreased appetite: No Nutrition Risks: No Nutritional Risk Patient : No : No service: No Current occupational status: disabled Current occupation: rt handed Cognitive needs: No Hearing needs: No Vision needs: Yes Meds Allergies Allergy/AdvReac Type Severity Reaction Status Date / Time dog dander [DOGS] Allergy Intermediate Respiratory Verified 10/08/23 09:39 distress shellfish derived Allergy Intermediate Hives Verified 10/08/23 09:39 methylprednisolone Allergy Rash Verified 10/08/23 09:39 etanercept [From Enbrel] AdvReac Intermediate Facial Verified 10/08/23 09:39 Swelling ibuprofen [Ibuprofen] AdvReac Intermediate STOMACH Verified 10/08/23 09:39 UPSET, abdominal pain, nausea and vomiting metformin AdvReac Intermediate Diarrhea Verified 10/08/23 09:39 metronidazole [From FLAGYL] AdvReac Intermediate Diarrhea Verified 10/08/23 09:39 prednisone AdvReac Intermediate hallucinations, Verified 10/08/23 09:39 higher than 20 Active Medications: Current Medications Albuterol Sulfate (Albuterol Sulfate 90 Mcg 8 Gm Inhaler) 2 puff INHALE Q4H PRN PRN Reason: Shortness Of Breath Or Wheezing Aspirin (Aspirin Enteric Coated 81 Mg Tablet.Dr) 81 mg PO DAILY [facility] Budesonide (Budesonide 0.5 Mg/2 Ml Ampul.Neb) 0.25 mg INHALE BID [facility] Famotidine (Famotidine 20 Mg Tablet) 20 mg PO BEDTIME [facility] Fluticasone/Umeclidinium/Vilanterol (Fluticasone/Umeclidinium/Vilanterol 100/62.5/25 Blst.W.Dev) 1 puff INHALE DAILY [facility] Guaifenesin/Codeine Phosphate (Guaifen/Codeine Sf 200/20/10ml 10 Ml Liquid) 10 ml PO Q8-12H PRN PRN Reason: allergy symptoms/cough Levofloxacin (Levaquin) 500 mg in 100 mls @ 100 mls/hr IV Q24H [facility] Metronidazole (Flagyl) 500 mg in 100 mls @ 100 mls/hr IV Q8H [facility] Lactated Ringer's (Lr) 1,000 mls @ 100 mls/hr IVCONT .Q10H [facility] Ipratropium [place] (Ipratropium [place] 0.5 Mg/2.5 Ml Solution) mg INHALE Q6H PRN PRN Reason: shortness of breath or wheezing Letrozole (Letrozole 2.5 Mg Tablet) 2.5 mg PO DAILY [facility] Morphine Sulfate (Morphine Sulfate 4 Mg/Ml Cartridge) 4 mg IVPUSH Q4H PRN; Protocol PRN Reason: 80 unit/kg - Heparin Protocol Non-Formulary Medication (Levalbuterol Tartrate) 2 puff INHALE Q4-6H PRN PRN Reason: shortness of breath Non-Formulary Medication (Mesalamine) 2.4 gm PO DAILY [facility] Non-Formulary Medication (Pantoprazole) 40 mg PO DAILY [facility] Ondansetron HCl (Ondansetron Hcl 4 Mg/2 Ml Vial) 4 mg IVPUSH Q8H PRN PRN Reason: Nausea and Vomiting Pregabalin (Pregabalin 200 Mg Capsule) 200 mg PO BID [facility] Sodium Chloride (0.9 % Sodium Chloride Flush 3 Ml Syringe) 3 ml IVFLUSH QSHIFT [facility] Trazodone HCl (Trazodone Hcl 100 Mg Tablet) 100 mg PO BEDTIME [facility] Home Medications Medication Instructions Recorded Confirmed Last Taken Type albuterol sulfate 90 mcg/actuation 2 inh inhalation Q4H PRN Shortness 08/23/23 11/01/23 09/26/23 History aerosol inhaler Of Breath Or Wheezing mesalamine 1.2 gram tablet,delayed 2.4 g PO DAILY 09/27/23 11/01/23 09/26/23 History release pantoprazole 40 mg tablet,delayed 40 mg PO DAILY 09/27/23 11/01/23 09/26/23 History release codeine 10 mg-guaifenesin 100 mg/5 10 ml PO Q8-12H PRN allergy 11/01/23 11/01/23 Unknown History mL oral liquid symptoms/cough fluticasone fur. 100 mcg-umeclid 1 inh inhalation DAILY 11/01/23 11/01/23 Unknown History 62.5 mcg-vilant 25 mcg inhalat.powder (Trelegy Ellipta) Physical Exam Vital Signs and Narrative: Vital Signs: Last Vital Signs Temp 98.6 F 11/01/23 13:37 Pulse 87 11/01/23 13:37 Resp 16 11/01/23 13:37 BP 113/74 11/01/23 13:37 Pulse Ox 94 11/01/23 13:37 O2 Del Method Room Air 11/01/23 13:37 BMI result Body Mass Index 22.4 Appearance: Alert.? Oriented X3.? Eyes: Pupils equal, round and reactive to light.? Sclera nonicteric.? ENT: Pharynx normal.? Moist mucous membranes. cvs: rrr, [id number] , no murmur res: clear to auscultation ,no rhonchii or wheezing abd: no rebound or guarding ,left lower quadrent pain, bs present. ext pulses present , no cyanosis . neuro: axo3 , nonfocal. Results Labs 11/01/23 09:18 11/01/23 09:43 Labs: Laboratory Results - last 24 hr 11/01/23 11/01/23 11/01/23 09:18 09:22 09:43 MCV 84.4 MCH 27.4 MCHC 32.4 RDW 14.5 Plt Count 312 MPV 10.7 Immature Gran % (Auto) 0.4 Neut % (Auto) 72.1 Lymph % (Auto) 21.4 Snyder % (Auto) 5.6 Eos % (Auto) 0.2 Baso % (Auto) 0.3 Lymph # (Auto) 2.5 Snyder # (Auto) 0.7 Eos # (Auto) 0.0 Baso # (Auto) 0.0 Abs Immat Gran (auto) 0.05 H Absolute Neuts (auto) 8.5 H Absolute Nucleated RBC 0.000 Nucleated RBC % (auto) 0.0 Anion Gap 8 L Estim Creat Clear Calc 45.4 Estimated GFR > 60 Random Glucose 151 H Lactic Acid Calcium 8.6 D Magnesium 1.9 Total Bilirubin 0.5 AST 13 ALT 10 Alkaline Phosphatase 71 Total Protein 6.3 L Albumin 3.5 Lipase 22 Urine Color Urine Appearance Urine pH Ur Specific Harrah Urine Protein Urine Glucose (UA) Urine Ketones Urine Blood Urine Nitrite Ur Leukocyte Esterase Urine RBC Urine WBC Ur Squamous Epith Cells Urine Bacteria Hyaline Casts Urine Test Stool Occult Blood POSITIVE COVID-19 ([facility]) Negative COVID-19 Clin Com See Note 11/01/23 11/01/23 11/01/23 09:45 09:46 13:25 MCV MCH MCHC RDW Plt Count MPV Immature Gran % (Auto) Neut % (Auto) Lymph % (Auto) Snyder % (Auto) Eos % (Auto) Baso % (Auto) Lymph # (Auto) Snyder # (Auto) Eos # (Auto) Baso # (Auto) Abs Immat Gran (auto) Absolute Neuts (auto) Absolute Nucleated RBC Nucleated RBC % (auto) Anion Gap Estim Creat Clear Calc Estimated GFR Random Glucose Lactic Acid 0.7 Calcium Magnesium Total Bilirubin AST ALT Alkaline Phosphatase Total Protein Albumin Lipase Urine Color Dark Yellow Urine Appearance Clear Urine pH 6.5 Ur Specific Harrah 1.025 Urine Protein Trace Urine Glucose (UA) Negative Urine Ketones Trace Urine Blood Negative Urine Nitrite Negative Ur Leukocyte Esterase Trace H Urine RBC 3-5 H Urine WBC 0-5 Ur Squamous Epith Cells 0-2 Urine Bacteria None Seen Hyaline Casts 0-2 Urine Test NEGATIVE Stool Occult Blood COVID-19 ([facility]) COVID-19 Clin Com Imaging Radiologist's Impressions: Impressions Abdomen/Pelvis CT 11/01/23 10:50 IMPRESSION: * There are imaging findings of acute colitis but this is of uncertain cause. * Scattered diverticula of the colon without evidence of diverticulitis. * Again noted is a small stone of the lower pole of the right kidney. No hydronephrosis. Assessment and Plan (1) Bloody diarrhea: Status: Acute (2) Abdominal pain: Status: Inactive Plan 63-year-old female with pertinent history of asthma/COPD overlap syndrome not on home oxygen, tobacco use disorder, insulin-dependent diabetes mellitus, gastroesophageal reflux disease, mood disorder, CAD status post PCI who presents to the emergency department for evaluation of diarrhae (bloody) Colitis : mild leucocytosis bloody diarrahe also has hx of crohn dis blood cultures pending, lactic acid normal moniter h/h Start hydration, IV antibiotics,continue IBd meds ,iv monrpine ,npo (unable to tolerate food yet) Gi eval. mild intermittent asthma)/COPD overlap syndrome: continue home meds. Insulin-dependent diabetes mellitus with hyperglycemia: Initiating basal plus insulin regimen Tobacco use disorder: Counseled regarding cessation. Offered nicotine patch Gastroesophageal reflux disease: On PPI Mood disorder: Continue home mood stabilizers Coronary artery disease: hold asa due to blood /diarrahe. History of breast cancer: On letrozole DVT prophylaxis: mech devices due to bloddy diarrhae. Patient will benefit from 2 midnight stay due to colitis with underlying IBd as well as dirrahae with blood- need h/h monitering iv antibiotics ,iv pain medications ,(unable to tolerate food yet),also need expert consulatation. Quality Stroke Does the patient have a stroke diagnosis?: No VTE Prior VTE?: No VTE Risk Level:: Medical - moderate - high VTE Device Contraindication: N/A - Device Ordered VTE Drug Contraindication: N/A - Med Ordered
[2023-11-01] MEDS: Lactated Ringers 1,000 ML 100 ML IVCONT (17:10)
[2023-11-01 17:14] VITALS: BP 110/63; PULSE 84; RESP 18; TEMP 37; O2SAT 96
[2023-11-01 17:27] LABS: Glucose, Whole Blood 83 mg/dL (60-115)
[2023-11-01 18:01] VITALS: BP 117/64; PULSE 91; RESP 18; TEMP 36.6; O2SAT 94
[2023-11-01 19:10] VITALS: BP 110/58; PULSE 86; RESP 18; TEMP 36.5; O2SAT 96
[2023-11-01 19:58] LABS: Glucose, Whole Blood 85 mg/dL (60-115)
[2023-11-01] MEDS: Budesonide 0.5 MG/2 ML AMPUL.NEB 0.25 MG INHALE (20:05)
[2023-11-01 20:08] VITALS: PULSE 82; RESP 14; O2SAT 96
[2023-11-01] MEDS: Pregabalin 200 MG CAPSULE PO (21:39)
[2023-11-01] MEDS: traZODone HCL 100 MG TABLET PO (21:39)
[2023-11-01] MEDS: Famotidine 20 MG TABLET PO (21:39)
[2023-11-02] VITALS (9 sets, daily range): BP systolic 96–137; BP diastolic 54–75; PULSE 83–92; RESP 16–18; TEMP 36.4–36.7; O2SAT 95–98
[2023-11-02] MEDS: Lactated Ringers 1,000 ML 100 ML IVCONT ×2 (00:52→10:59)
[2023-11-02] MEDS: 0.9 % Sodium Chloride Flush 3 ML SYRINGE IVFLUSH ×4 (00:52→21:20)
[2023-11-02] MEDS: Morphine Sulfate 4 MG/ML CARTRIDGE IVPUSH (01:17)
[2023-11-02] MEDS: Omeprazole 20 MG CAPSULE.DR PO (05:29)
[2023-11-02 07:23] LABS: Glucose, Whole Blood 90 mg/dL (60-115)
[2023-11-02] MEDS: Budesonide 0.5 MG/2 ML AMPUL.NEB 0.25 MG INHALE ×2 (08:01→19:58)
[2023-11-02] MEDS: Fluticasone/Umeclidinium/Vilanterol 100/62.5/25 BLST.W.DEV 1 PUFF INHALE (08:01)
--- NOTE | 2023-11-02 09:04 | P.CNGI_ITS ---
History of Present Illness Data of Consult Service Date: 11/02/23 Requesting physician: Nano Raphael Primary Care Provider: Adela Wasserman MD HPI Reason for consult: Abdominal pain, colitis 63 YF with hyperlipidemia, COPD, breast cancer, diabetes, Raynaud's, CAD, bipolar, fibromyalgia, rheumatoid off arthritis, Crohn's disease seen at [facility] ED on 11/01/23 with nausea, vomiting, diarrhea, abdominal pain worse in the left lower quadrant and hematochezia for the past 2 days. Pt has a hx of intermittent chronic abd pain which the pt states is different from the pain she is having on this admission. Pt states she woke up on 10/31/23 at midnight with constant, cramping 10/10 pain in the LLQ and suprpubic area - feels like her intestines are being twisted. She states she started having vomiting and diarrhea at 1 am, went to sleep at 5 am on 11/01/23 and woke up at 7:30 am to have a BM containing blood and mucous. Blood appeared dark with ? cots and settled at the bottom of the toilet bowl. Pt reports her abd pain gets slightly better for a few minutes after she has a BM and then increases again. She tried messaging her abdomen and using a heating pad which did not help the pain. She reports each time she tries to eat she ends up vomiting and she has brown diarrhea with blood in it. Pt notes chills and denies fever or sweating. Pt reports worsening heartburn since she ran out of her PPI for the past 2 days. Pt denies having a BM since arrival to the hospital and continues to have 9-10 abd pain. She feels gassy and has not been passing gas. She reports she does not feel hungry and her appetite has and she has been loosing weight (weighs 102 lbs) Pt denies recent antibiotic use. She ate a Ham and Cheese burger from a Pizza place a few hours prior to onset of her symptoms Of note pt had an episode of ischemic colitis in 08/2019 Patient reports she is on mesalamine for Crohn's disease and is taking as prescribed. In the ED pt was treated with levaquin/flagyl and admitted for further management. 11/01/[address] SCAN SHOWED: BOWEL AND PERITONEUM: The stomach is underdistended and grossly normal. No dilated bowel loops. The appendix is normal. There are scattered diverticula of the colon. There are segments of the colon in which the wall is difficult to evaluate due to lack of bowel distention. There appears to be mild wall thickening of the ascending and transverse colon. There is circumferential thickening of the wall of the descending and sigmoid colon to the rectum, and there are some regions of subtle haziness of the pericolonic fat. The findings are consistent with colitis. No bowel wall pneumatosis, pneumoperitoneum or abscess. Review of Systems 2 Review of Systems: Yes all other systems are reviewed and are negative [facility] Past Medical History Medical History Acute respiratory distress Hospital discharge follow-up Tendonitis of ankle or foot Colitis Cough Anxiety CAD (coronary artery disease) HLD (hyperlipidemia) HTN (hypertension) T2DM (type 2 diabetes mellitus) COPD exacerbation Hyperkalemia Atherosclerotic cardiovascular disease GERD (gastroesophageal reflux disease) CVA (cerebral vascular accident) Breast pain, right Rash Bloody diarrhea PAD (peripheral artery disease) Hyperlipidemia LDL goal <100 COPD (chronic obstructive pulmonary disease) Infiltrating ductal carcinoma of left breast, stage 2 Insomnia Dyslipidemia Bipolar 1 disorder, depressed Cough Restrictive airway disease Hypothyroid IDDM (insulin dependent diabetes mellitus) Vitamin D deficiency Osteoporosis Hyperparathyroidism Thyroid nodule Depression Fibromyalgia Seropositive rheumatoid arthritis Reactive airways dysfunction syndrome Allergic rhinitis Irritable bowel Anxiety Bronchial asthma Diabetes type 2, uncontrolled Hypertension Family History Family History Mother Diabetes HTN (hypertension) Uterus cancer Malignant tumor of head Breast cancer Father Diabetes HTN (hypertension) CVD (cardiovascular disease) Heart problem Maternal Aunt Breast cancer Brother Myocardial infarction S/P CABG x 4 Family/Other FH: mental illness Family/Other Lung cancer Other Mental health disorder Surgical History Surgical History Hx of sigmoidoscopy History of bronchoscopy Hx of endoscopy H/O cardiac catheterization History of lumpectomy of left breast History of pubovaginal sling History of esophagogastroduodenoscopy (EGD) History of tubal ligation History of colonoscopy History of bunionectomy of both great toes H/O: hysterectomy Social History Social History Household Members: Family Household Members Other:: sister Housing: Homeless Are you a primary life care planner to a significant other at home: No Do you presently have visiting nurse or other home services: Yes ([employer] DE[employer]IVE [employer]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[employer]) Unable to assess alcohol history related to: Unknown Alcohol intake: never Patient Tobacco Use Status: Current everyday Tobacco user Tobacco use type: Cigarette Cigarette Packs Per Day: 0.5 Cigarettes Per Day: 3 Years Smoked: 48 Packs Per Year: 24 Packs per year/per ci.20 e-Cigarette/Vaping Use: Never Used Second Hand Smoke Exposure: No Substance Use Type: Marijuana Advance Directives Date on File: 12/22/21 service: No Current occupational status: disabled Current occupation: rt handed Cognitive needs: No Hearing needs: No Vision needs: Yes Meds Allergies Allergy/AdvReac Type Severity Reaction Status Date / Time dog dander [DOGS] Allergy Intermediate Respiratory Verified 11/27/23 07:45 distress shellfish derived Allergy Intermediate Hives Verified 11/27/23 07:45 methylprednisolone Allergy Rash Verified 11/27/23 07:45 etanercept [From Enbrel] AdvReac Intermediate Facial Verified 11/27/23 07:45 Swelling ibuprofen [Ibuprofen] AdvReac Intermediate STOMACH Verified 11/27/23 07:45 UPSET, abdominal pain, nausea and vomiting metformin AdvReac Intermediate Diarrhea Verified 11/27/23 07:45 metronidazole [From FLAGYL] AdvReac Intermediate Diarrhea Verified 11/27/23 07:45 prednisone AdvReac Intermediate hallucinations, Verified 11/27/23 07:45 higher than 20 Active Medications: Current Medications Albuterol Sulfate (Albuterol Sulfate 90 Mcg 8 Gm Inhaler) 2 puff INHALE Q4H PRN PRN Reason: Shortness Of Breath Or Wheezing Budesonide (Budesonide 0.5 Mg/2 Ml Ampul.Neb) 0.25 mg INHALE RBID [facility] Last Admin: 11/02/23 08:01 Dose: 0.25 mg Dextrose (Dextrose 50 % 25 Gm/50 Ml Syringe) 25 gm IVPUSH Q15M PRN; Protocol PRN Reason: per Hypoglycemia Standing Ord. Famotidine (Famotidine 20 Mg Tablet) 20 mg PO BEDTIME [facility] Last Admin: 11/01/23 21:39 Dose: 20 mg Fluticasone/Umeclidinium/Vilanterol (Fluticasone/Umeclidinium/Vilanterol 100/62.5/25 Blst.W.Dev) 1 puff INHALE RDAILY [facility] Last Admin: 11/02/23 08:01 Dose: 1 puff Glucose (Glucose Gel 15 Gm Gel..Gram.) 15 gm PO Q15M PRN; Protocol PRN Reason: per Hypoglycemia Standing Ord. Guaifenesin/Codeine Phosphate (Guaifen/Codeine Sf 200/20/10ml 10 Ml Liquid) 10 ml PO Q8H PRN PRN Reason: allergy symptoms/cough Hydromorphone HCl (Hydromorphone Hcl 0.5 Mg/0.5 Ml Syringe) 0.5 mg IVPUSH Q4H PRN; Protocol PRN Reason: Pain, Mild (Pain Scale 1-3) Levofloxacin (Levaquin) 500 mg in 100 mls @ 100 mls/hr IV Q24H [facility] Metronidazole (Flagyl) 500 mg in 100 mls @ 100 mls/hr IV Q8H [facility] Lactated Ringer's (Lr) 1,000 mls @ 100 mls/hr IVCONT .Q10H [facility] Last Admin: 11/02/23 00:52 Dose: 100 mls/hr Insulin Human Lispro (Insulin Lispro 100 Unit/Ml 3 Ml Vial) 0 unit SUBCUT QIDACHS [facility]; Protocol Last Admin: 11/01/23 21:39 Dose: Not Given Ipratropium [place] (Ipratropium [place] 0.5 Mg/2.5 Ml Solution) 0.5 mg INHALE Q6H PRN PRN Reason: shortness of breath or wheezing Letrozole (Letrozole 2.5 Mg Tablet) 2.5 mg PO DAILY [facility] Mesalamine (Mesalamine 400 Mg Cap.Drtab.) 2,400 mg PO DAILY [facility] Non-Formulary Medication (Levalbuterol Tartrate) 2 puff INHALE Q4H PRN PRN Reason: shortness of breath Omeprazole (Omeprazole 20 Mg Capsule.Dr) 20 mg PO DAILY@0630 [facility] Last Admin: 11/02/23 05:29 Dose: 20 mg Ondansetron HCl (Ondansetron Hcl 4 Mg/2 Ml Vial) 4 mg IVPUSH Q8H PRN PRN Reason: Nausea and Vomiting Pregabalin (Pregabalin 200 Mg Capsule) 200 mg PO BID [facility] Last Admin: 11/01/23 21:39 Dose: 200 mg Sodium Chloride (0.9 % Sodium Chloride Flush 3 Ml Syringe) 3 ml IVFLUSH QSHIFT [facility] Last Admin: 11/02/23 00:52 Dose: 3 ml Trazodone HCl (Trazodone Hcl 100 Mg Tablet) 100 mg PO BEDTIME [facility] Last Admin: 11/01/23 21:39 Dose: 100 mg Home Medications Medication Instructions Recorded Confirmed Last Taken Type albuterol sulfate 90 mcg/actuation 2 inh inhalation Q4H PRN Shortness 08/23/23 11/22/23 09/26/23 History aerosol inhaler Of Breath Or Wheezing pantoprazole 40 mg tablet,delayed 40 mg PO DAILY 09/27/23 11/22/23 09/26/23 History release codeine 10 mg-guaifenesin 100 mg/5 10 ml PO Q8-12H PRN allergy 11/01/23 11/22/23 Unknown History mL oral liquid symptoms/cough fluticasone fur. 100 mcg-umeclid 1 inh inhalation DAILY 11/01/23 11/22/23 Unknown History 62.5 mcg-vilant 25 mcg inhalat.powder (Trelegy Ellipta) Physical Exam 2 Vital Signs: Vital Signs: Last Vital Signs Temp 98 F 11/02/23 07:19 Pulse 91 11/02/23 08:04 Resp 16 11/02/23 08:04 BP 122/75 11/02/23 07:19 Pulse Ox 95 11/02/23 07:19 O2 Del Method Room Air 11/02/23 07:19 BMI result Body Mass Index 22.4 Const: General: no acute distress Nutritional Appearance: average body habitus Orientation/consciousness: patient oriented x3 Limitations: no limitations HEENT: Head: Yes normal to inspection Ears: hearing grossly normal bilaterally Eyes: Sclerae: sclerae normal Pupils: Equal, round and reactive pupils present Neck: Neck: Yes normal visual inspection Chest: Chest palpation & inspection: normal inspection of the chest Resp: Effort & Inspection: normal respiratory effort Auscultation: clear to auscultation bilaterally Cardio: Palpation: normal PMI Rate: regular rate Rhythm: regular rhythm Heart sounds: S1 normal heart sound present, S2 normal heart sound present and no murmurs GI: Palpation (GI): Soft to palpation, Tenderness to palpation present (GI) (moderate LLQ tenderness) and No hepatosplenomegaly present Auscultation: n ormal bowel sounds Rectal Exam - Female: deferred Skin: General skin exam: no rashes or lesions noted Neuro: General: patient oriented x3, gait normal and moves all extremities Cranial nerves: Yes Equal, round and reactive pupils present Psych: Appearance: grossly normal Mental Status: mental status grossly normal Results Labs 11/03/23 10:41 11/01/23 09:43 Labs: Short CBC 11/01/23 Range/Units 09:18 WBC 11.8 H (4.8-10.8) X10*3/uL Hgb 13.2 (12.0-16.0) g/dl Hct 40.7 (37.0-47.0) % Plt Count 312 (160-400) X10*3/uL BMP 11/01/23 09:43 Sodium 138 Potassium 4.0 Chloride 109 H Carbon Dioxide 25 BUN 8 L Creatinine 0.84 Calcium 8.6 D Liver Function 11/01/23 Range/Units 09:43 Total Bilirubin 0.5 (0.0-1.0) mg/dL AST 13 (5-31) U/L ALT 10 (0-31) U/L Alkaline Phosphatase 71 (39-117) U/L Albumin 3.5 (3.5-5.0) g/dL Urine 11/01/23 Range/Units 09:46 Urine Color Dark Yellow Urine Appearance Clear Urine pH 6.5 (5.0-9.0) Ur Specific [place] 1.025 (1.005-1.025) Urine Protein Trace (Neg-Trace) mg/dL Urine Glucose (UA) Negative (Negative) mg/dL Assessment and Plan (1) History of ischemic colitis: Status: Acute (2) GERD (gastroesophageal reflux disease): Status: Inactive (3) Colitis: Status: Acute (4) Bloody diarrhea: Status: Acute Plan 63 YF with hyperlipidemia, COPD, breast cancer, diabetes, Raynaud's, CAD, bipolar, fibromyalgia, rheumatoid off arthritis, Crohn's disease seen at [facility] on 11/01/23 with nausea, vomiting, diarrhea, abdominal pain worse in the left lower quadrant and hematochezia for the past 2 days. Pt was started on mesalamine 2 months ago for suspected Crohn's disease (Abd pain, nausea, fecal calprotectin of 92 and IBD serologies positive for Crohn's disease) Pt has a hx of intermittent chronic abd pain which the pt states is different from the pain she is having on this admission. Pt's symptoms are likely due to acute viral or bacterial gastroenetritis since she reports she ate a Ham and Cheese burger from a Pizza place a few hours prior to onset of her symptoms. She could have superimposed ischemic colitis due to dehydration from vomiting and diarrhea. Of note pt had an episode of ischemic colitis in 08/2019 Patient reports she is on mesalamine for Crohn's disease and is taking as prescribed. In the ED pt was treated with levaquin/flagyl and admitted for further management. RECOMMENDATIONS: 1. Agree with IV pain medications, anti emetics and antibiotics and hold off prednisone for now 2. Stool studies for C diff and enteric pathogens if she has recurrent diarrhea Procedures Date of Service Date of Service: 11/28/23
[2023-11-02] MEDS: HYDROmorphone HCl 0.5 MG/0.5 ML SYRINGE IVPUSH ×3 (09:07→21:20)
[2023-11-02] MEDS: Letrozole 2.5 MG TABLET PO (09:08)
[2023-11-02] MEDS: Mesalamine 400 MG CAP.DRTAB. 2400 MG PO (09:08)
[2023-11-02] MEDS: Pregabalin 200 MG CAPSULE PO ×2 (09:08→21:20)
[2023-11-02 11:07] LABS: Glucose, Whole Blood 106 mg/dL (60-115)
[2023-11-02 12:39] LABS: Adenovirus PCR Not Detected (Not Detect.); Bordetella parapertussis PCR Not Detected (Not Detect.); Bordetella pertussis PCR Not Detected (Not Detect.); Chlamydia pneumoniae PCR Not Detected (Not Detect.); Coronavirus 229E PCR Not Detected (Not Detect.); Coronavirus HKU1 PCR Not Detected (Not Detect.); Coronavirus NL63 PCR Not Detected (Not Detect.); Coronavirus OC43 PCR Not Detected (Not Detect.); Human metapneumovirus PCR Not Detected (Not Detect.); Influenza A PCR Not Detected (Not Detect.); Influenza B PCR Not Detected (Not Detect.); Mycoplasma pneumoniae PCR Not Detected (Not Detect.); Parainfluenza 1 PCR Not Detected (Not Detect.); Parainfluenza 2 PCR Not Detected (Not Detect.); Parainfluenza 3 PCR Not Detected (Not Detect.); Parainfluenza 4 PCR Not Detected (Not Detect.); RSV PCR Not Detected (Not Detect.); Rhino/Enterovirus PCR Not Detected (Not Detect.)
[2023-11-02] MEDS: levoFLOXacin/D5W 500 MG/100 ML PIGGYBACK 100 MG IV (13:08)
[2023-11-02 13:53] LABS: SARS-CoV-2 PCR Not Detected (Not Detect.)
--- NOTE | 2023-11-02 14:10 | HO.PM.IMPN ---
Subjective Subjective Date of Service: 11/02/23 Interval History: blood diarrhae and abd pain Review of Systems she says shehas abd pain wants to try clear has diarrhae, no fevers Physical Exam Vital Signs: Vital Signs: Last Vital Signs Temp 98 F 11/02/23 11:43 Pulse 92 11/02/23 11:43 Resp 17 11/02/23 11:43 BP 134/67 11/02/23 11:43 Pulse Ox 96 11/02/23 11:43 O2 Del Method Room Air 11/02/23 07:19 BMI result Body Mass Index 22.4 Appearance: Alert.? Oriented X3.? cvs: rrr, [id number] . res: clear to auscultation ,no rhonchii or wheezing abd: no rebound or guarding ,left lower quadrent pain, bs present. ext pulses present , no cyanosis . neuro: axo3 , nonfocal. Objective Data Active Medications Albuterol Sulfate (Albuterol Sulfate 90 Mcg 8 Gm Inhaler) 2 puff INHALE Q4H PRN PRN Reason: Shortness Of Breath Or Wheezing Budesonide (Budesonide 0.5 Mg/2 Ml Ampul.Neb) 0.25 mg INHALE RBID [facility] Last Admin: 11/02/23 08:01 Dose: 0.25 mg Documented By: CALLIE Dextrose (Dextrose 50 % 25 Gm/50 Ml Syringe) 25 gm IVPUSH Q15M PRN; Protocol PRN Reason: per Hypoglycemia Standing Ord. Famotidine (Famotidine 20 Mg Tablet) 20 mg PO BEDTIME [facility] Last Admin: 11/01/23 21:39 Dose: 20 mg Documented By: ALEJANDRO Fluticasone/Umeclidinium/Vilanterol (Fluticasone/Umeclidinium/Vilanterol 100/62.5/25 Blst.W.Dev) 1 puff INHALE RDAILY [facility] Last Admin: 11/02/23 08:01 Dose: 1 puff Documented By: CALLIE Glucose (Glucose Gel 15 Gm Gel..Gram.) 15 gm PO Q15M PRN; Protocol PRN Reason: per Hypoglycemia Standing Ord. Guaifenesin/Codeine Phosphate (Guaifen/Codeine Sf 200/20/10ml 10 Ml Liquid) 10 ml PO Q8H PRN PRN Reason: allergy symptoms/cough Hydromorphone HCl (Hydromorphone Hcl 0.5 Mg/0.5 Ml Syringe) 0.5 mg IVPUSH Q4H PRN; Protocol PRN Reason: Pain, Mild (Pain Scale 1-3) Last Admin: 11/02/23 09:07 Dose: 0.5 mg Documented By: JESSICA Levofloxacin (Levaquin) 500 mg in 100 mls @ 100 mls/hr IV Q24H [facility] Last Admin: 11/02/23 13:08 Dose: 100 mls/hr Documented By: JESSICA Metronidazole (Flagyl) 500 mg in 100 mls @ 100 mls/hr IV Q8H [facility] Insulin Human Lispro (Insulin Lispro 100 Unit/Ml 3 Ml Vial) 0 unit SUBCUT QIDACHS [facility]; Protocol Last Admin: 11/02/23 11:57 Dose: Not Given Documented By: JESSICA Non-Admin Reason: No Insulin Coverage Ipratropium [place] (Ipratropium [place] 0.5 Mg/2.5 Ml Solution) 0.5 mg INHALE Q6H PRN PRN Reason: shortness of breath or wheezing Letrozole (Letrozole 2.5 Mg Tablet) 2.5 mg PO DAILY [facility] Last Admin: 11/02/23 09:08 Dose: 2.5 mg Documented By: JESSICA Mesalamine (Mesalamine 400 Mg Cap.Drtab.) 2,400 mg PO DAILY [facility] Last Admin: 11/02/23 09:08 Dose: 2,400 mg Documented By: JESSICA Non-Formulary Medication (Levalbuterol Tartrate) 2 puff INHALE Q4H PRN PRN Reason: shortness of breath Omeprazole (Omeprazole 20 Mg Capsule.Dr) 20 mg PO DAILY@0630 [facility] Last Admin: 11/02/23 05:29 Dose: 20 mg Documented By: ANTOIC Ondansetron HCl (Ondansetron Hcl 4 Mg/2 Ml Vial) 4 mg IVPUSH Q8H PRN PRN Reason: Nausea and Vomiting Pregabalin (Pregabalin 200 Mg Capsule) 200 mg PO BID [facility] Last Admin: 11/02/23 09:08 Dose: 200 mg Documented By: JESSICA Sodium Chloride (0.9 % Sodium Chloride Flush 3 Ml Syringe) 3 ml IVFLUSH QSHIFT [facility] Last Admin: 11/02/23 09:08 Dose: 3 ml Documented By: JESSICA Trazodone HCl (Trazodone Hcl 100 Mg Tablet) 100 mg PO BEDTIME [facility] Last Admin: 11/01/23 21:39 Dose: 100 mg Documented By: ALEJANDRO Labs 11/01/23 09:18 11/01/23 09:43 Labs: Laboratory Results - last 24 hr 11/01/23 11/01/23 11/01/23 16:00 17:23 19:54 POC Glucose 83 85 Respiratory Panel [place] See Note Adenovirus (Rapid PCR) Not Detected B.pert (TEM-PCR) Not Detected B.parapertussis DNA PCR Not Detected C. pneumoniae DNA (PCR) Not Detected Coronavirus OC43 (PCR) Not Detected Coronavirus HKU1 (PCR) Not Detected Coronavirus 229E (PCR) Not Detected Coronavirus NL63 (PCR) Not Detected Human Metapneumovir PCR Not Detected Influenza A (RT-PCR) Not Detected Influenza B (RT-PCR) Not Detected M. pneumoniae (PCR) Not Detected Parainfluenza 1 (PCR) Not Detected Parainfluenza 2 (PCR) Not Detected Parainfluenza 3 (PCR) Not Detected Parainfluenza 4 (PCR) Not Detected RSV (PCR) Not Detected Entero/Rhino (PCR) Not Detected SARS-CoV-2 RNA (RT-PCR) Not Detected 11/02/23 11/02/23 07:19 11:03 POC Glucose 90 106 Respiratory Panel [place] Adenovirus (Rapid PCR) B.pert (TEM-PCR) B.parapertussis DNA PCR C. pneumoniae DNA (PCR) Coronavirus OC43 (PCR) Coronavirus HKU1 (PCR) Coronavirus 229E (PCR) Coronavirus NL63 (PCR) Human Metapneumovir PCR Influenza A (RT-PCR) Influenza B (RT-PCR) M. pneumoniae (PCR) Parainfluenza 1 (PCR) Parainfluenza 2 (PCR) Parainfluenza 3 (PCR) Parainfluenza 4 (PCR) RSV (PCR) Entero/Rhino (PCR) SARS-CoV-2 RNA (RT-PCR) Assessment and Plan (1) Bloody diarrhea: Status: Acute Plan 63-year-old female with pertinent history of asthma/COPD overlap syndrome not on home oxygen, tobacco use disorder, insulin-dependent diabetes mellitus, gastroesophageal reflux disease, mood disorder, CAD status post PCI who presents to the emergency department for evaluation of diarrhae (bloody) Colitis : mild leucocytosis ,bloody diarrahe also has hx of crohn dis blood cultures pending, lactic acid normal moniter h/h Start iv hydration, IV antibiotics,continue IBd meds ,iv dilaudid ,will try clear liquid s Gi eval pendin mild intermittent asthma)/COPD overlap syndrome: continue home meds. Insulin-dependent diabetes mellitus with hyperglycemia: Initiating basal plus insulin regimen Tobacco use disorder: Counseled regarding cessation. Offered nicotine patch Gastroesophageal reflux disease: On PPI Mood disorder: Continue home mood stabilizers Coronary artery disease: hold asa due to blood /diarrahe. History of breast cancer: On letrozole DVT prophylaxis: mech devices due to bloddy diarrhae. colitis with underlying IBd as well as dirrahae with blood- need h/h monitering iv antibiotics ,iv pain medications ,clear liquids ,also need expert consulatation. Quality Stroke Does the patient have a stroke diagnosis?: No VTE Prior VTE?: No VTE Risk Level:: Medical - moderate - high VTE Device Contraindication: N/A - Device Ordered VTE Drug Contraindication: N/A - Med Ordered
--- NOTE | 2023-11-02 16:19 | MHC.CM.PN ---
PATIENT LIVES WITH HCP/SISTER, WHO IS ALSO EXCEPTIONAL NEEDS TEACHER FOR PATIENT. THERE IS A CANE AND WALKER IN THE HOME IF NEEDED. NO VNA SERVICES. PATIENT IS HOPING TO RETURN HOME UPON DC. HCP ON FILE AND VERIFIED. IMM 11/02 IN CHART
[2023-11-02 16:29] LABS: Glucose, Whole Blood 80 mg/dL (60-115)
[2023-11-02 20:12] LABS: Glucose, Whole Blood 193 mg/dL (60-115)
[2023-11-02] MEDS: Famotidine 20 MG TABLET PO (21:20)
[2023-11-02] MEDS: traZODone HCL 100 MG TABLET PO (21:20)
[2023-11-02] MEDS: diphenhydrAMINE HCL 25 MG CAPSULE 50 MG PO (21:20)
[2023-11-02] MEDS: Insulin Lispro 100 UNIT/ML 3 ML VIAL SUBCUT (21:20)
[2023-11-02] MEDS: metroNIDAZOLE/NS 500 MG/100 ML PIGGYBACK 100 MG IV (21:24)
[2023-11-03] VITALS (7 sets, daily range): BP systolic 104–113; BP diastolic 55–66; PULSE 84–89; RESP 16–18; TEMP 36.2–36.9; O2SAT 94–97
[2023-11-03] MEDS: metroNIDAZOLE/NS 500 MG/100 ML PIGGYBACK 150 MG IV ×2 (06:26→14:42)
[2023-11-03] MEDS: Omeprazole 20 MG CAPSULE.DR PO (06:27)
[2023-11-03 07:20] LABS: Glucose, Whole Blood 95 mg/dL (60-115)
[2023-11-03] MEDS: Letrozole 2.5 MG TABLET PO (08:03)
[2023-11-03] MEDS: 0.9 % Sodium Chloride Flush 3 ML SYRINGE IVFLUSH ×3 (08:03→20:40)
[2023-11-03] MEDS: Mesalamine 400 MG CAP.DRTAB. 2400 MG PO (08:03)
[2023-11-03] MEDS: Pregabalin 200 MG CAPSULE PO ×2 (08:03→20:34)
[2023-11-03] MEDS: HYDROmorphone HCl 0.5 MG/0.5 ML SYRINGE IVPUSH ×3 (08:08→20:33)
[2023-11-03] MEDS: Fluticasone/Umeclidinium/Vilanterol 100/62.5/25 BLST.W.DEV 1 PUFF INHALE (08:15)
[2023-11-03] MEDS: Budesonide 0.5 MG/2 ML AMPUL.NEB 0.25 MG INHALE ×2 (08:15→19:49)
--- NOTE | 2023-11-03 10:05 | HO.PM.IMPN ---
Subjective Subjective Date of Service: 11/03/23 Interval History: colitis Review of Systems patient has abd pain similar no new diarrhae ,no fever Physical Exam Vital Signs: Vital Signs: Last Vital Signs Temp 98.4 F 11/03/23 07:15 Pulse 86 11/03/23 08:17 Resp 16 11/03/23 08:17 BP 105/55 L 11/03/23 07:15 Pulse Ox 96 11/03/23 07:15 O2 Del Method Room Air 11/03/23 07:15 BMI result Body Mass Index 22.4 Appearance: Alert.? Oriented X3.? cvs: [id number], [id number] . res: clear to auscultation ,no rhonchii or wheezing abd: no rebound or guarding ,left lower quadrent pain, bs present. ext pulses present , no cyanosis . neuro: axo3 , nonfocal. Objective Data Active Medications Albuterol Sulfate (Albuterol Sulfate 90 Mcg 8 Gm Inhaler) 2 puff INHALE Q4H PRN PRN Reason: Shortness Of Breath Or Wheezing Budesonide (Budesonide 0.5 Mg/2 Ml Ampul.Neb) 0.25 mg INHALE RBID [facility] Last Admin: 11/03/23 08:15 Dose: 0.25 mg Documented By: CALLIE Dextrose (Dextrose 50 % 25 Gm/50 Ml Syringe) 25 gm IVPUSH Q15M PRN; Protocol PRN Reason: per Hypoglycemia Standing Ord. Diphenhydramine HCl (Diphenhydramine Hcl 25 Mg Capsule) 50 mg PO BEDTIME PRN PRN Reason: Insomnia Last Admin: 11/02/23 21:20 Dose: 50 mg Documented By: LUIS MIGUEL Docusate Sodium (Docusate Sodium 100 Mg Capsule) 100 mg PO BEDTIME [facility] Famotidine (Famotidine 20 Mg Tablet) 20 mg PO BEDTIME [facility] Last Admin: 11/02/23 21:20 Dose: 20 mg Documented By: LUIS MIGUEL Fluticasone/Umeclidinium/Vilanterol (Fluticasone/Umeclidinium/Vilanterol 100/62.5/25 Blst.W.Dev) 1 puff INHALE RDAILY [facility] Last Admin: 11/03/23 08:15 Dose: 1 puff Documented By: CALLIE Glucose (Glucose Gel 15 Gm Gel..Gram.) 15 gm PO Q15M PRN; Protocol PRN Reason: per Hypoglycemia Standing Ord. Guaifenesin/Codeine Phosphate (Guaifen/Codeine Sf 200/20/10ml 10 Ml Liquid) 10 ml PO Q8H PRN PRN Reason: allergy symptoms/cough Hydromorphone HCl (Hydromorphone Hcl 0.5 Mg/0.5 Ml Syringe) 0.5 mg IVPUSH Q4H PRN; Protocol PRN Reason: Pain, Mild (Pain Scale 1-3) Last Admin: 11/03/23 08:08 Dose: 0.5 mg Documented By: HE Metronidazole (Flagyl) 500 mg in 100 mls @ 100 mls/hr IV Q8H [facility] Last Infusion: 11/03/23 08:13 Dose: Infused Documented By: HE Levofloxacin (Levaquin) 750 mg in 150 mls @ 100 mls/hr IV Q48H [facility] Insulin Human Lispro (Insulin Lispro 100 Unit/Ml 3 Ml Vial) 0 unit SUBCUT QIDACHS [facility]; Protocol Last Admin: 11/03/23 07:21 Dose: Not Given Documented By: HE Non-Admin Reason: No Insulin Coverage Ipratropium [place] (Ipratropium [place] 0.5 Mg/2.5 Ml Solution) 0.5 mg INHALE Q6H PRN PRN Reason: shortness of breath or wheezing Letrozole (Letrozole 2.5 Mg Tablet) 2.5 mg PO DAILY [facility] Last Admin: 11/03/23 08:03 Dose: 2.5 mg Documented By: HE Mesalamine (Mesalamine 400 Mg Cap.Drtab.) 2,400 mg PO DAILY [facility] Last Admin: 11/03/23 08:03 Dose: 2,400 mg Documented By: HE Non-Formulary Medication (Levalbuterol Tartrate) 2 puff INHALE Q4H PRN PRN Reason: shortness of breath Omeprazole (Omeprazole 20 Mg Capsule.Dr) 20 mg PO DAILY@0630 [facility] Last Admin: 11/03/23 06:27 Dose: 20 mg Documented By: LUIS MIGUEL Ondansetron HCl (Ondansetron Hcl 4 Mg/2 Ml Vial) 4 mg IVPUSH Q8H PRN PRN Reason: Nausea and Vomiting Pregabalin (Pregabalin 200 Mg Capsule) 200 mg PO BID [facility] Last Admin: 11/03/23 08:03 Dose: 200 mg Documented By: HE Sodium Chloride (0.9 % Sodium Chloride Flush 3 Ml Syringe) 3 ml IVFLUSH QSHIFT [facility] Last Admin: 11/03/23 08:03 Dose: 3 ml Documented By: HE Trazodone HCl (Trazodone Hcl 100 Mg Tablet) 100 mg PO BEDTIME [facility] Last Admin: 11/02/23 21:20 Dose: 100 mg Documented By: LUIS MIGUEL Labs 11/01/23 09:18 11/01/23 09:43 Labs: Laboratory Results - last 24 hr 11/01/23 11/02/23 11/02/23 16:00 11:03 16:19 POC Glucose 106 80 Respiratory Panel [place] See Note Adenovirus (Rapid PCR) Not Detected B.pert (TEM-PCR) Not Detected B.parapertussis DNA PCR Not Detected C. pneumoniae DNA (PCR) Not Detected Coronavirus OC43 (PCR) Not Detected Coronavirus HKU1 (PCR) Not Detected Coronavirus 229E (PCR) Not Detected Coronavirus NL63 (PCR) Not Detected Human Metapneumovir PCR Not Detected Influenza A (RT-PCR) Not Detected Influenza B (RT-PCR) Not Detected M. pneumoniae (PCR) Not Detected Parainfluenza 1 (PCR) Not Detected Parainfluenza 2 (PCR) Not Detected Parainfluenza 3 (PCR) Not Detected Parainfluenza 4 (PCR) Not Detected RSV (PCR) Not Detected Entero/Rhino (PCR) Not Detected SARS-CoV-2 RNA (RT-PCR) Not Detected 11/02/23 11/03/23 19:25 07:14 POC Glucose 193 H 95 Respiratory Panel [place] Adenovirus (Rapid PCR) B.pert (TEM-PCR) B.parapertussis DNA PCR C. pneumoniae DNA (PCR) Coronavirus OC43 (PCR) Coronavirus HKU1 (PCR) Coronavirus 229E (PCR) Coronavirus NL63 (PCR) Human Metapneumovir PCR Influenza A (RT-PCR) Influenza B (RT-PCR) M. pneumoniae (PCR) Parainfluenza 1 (PCR) Parainfluenza 2 (PCR) Parainfluenza 3 (PCR) Parainfluenza 4 (PCR) RSV (PCR) Entero/Rhino (PCR) SARS-CoV-2 RNA (RT-PCR) Microbiology Microbiology Results: Microbiology 11/01/23 13:25 Blood Culture - Preliminary Blood - Venous No growth after 24 hours. 11/01/23 13:25 Blood Culture - Preliminary Blood - Venous No growth after 24 hours. Assessment and Plan (1) Bloody diarrhea: Status: Acute Plan 63-year-old female with pertinent history of asthma/COPD overlap syndrome not on home oxygen, tobacco use disorder, insulin-dependent diabetes mellitus, gastroesophageal reflux disease, mood disorder, CAD status post PCI who presents to the emergency department for evaluation of diarrhae (bloody) Colitis : mild leucocytosis ,bloody diarrahe also has hx of crohn dis blood cultures pending, lactic acid normal moniter h/h Start iv hydration, IV antibiotics,continue IBd meds ,iv dilaudid ,will try clear liquid s Gi eval noted-continue iv antibiotics ,moniter ,if diarrahe reoccurs -will need stool studies. mild intermittent asthma)/COPD overlap syndrome: continue home meds. Insulin-dependent diabetes mellitus with hyperglycemia: Initiating basal plus insulin regimen Tobacco use disorder: Counseled regarding cessation. Offered nicotine patch Gastroesophageal reflux disease: On PPI Mood disorder: Continue home mood stabilizers Coronary artery disease: hold asa due to blood /diarrahe. History of breast cancer: On letrozole DVT prophylaxis: mech devices due to bloddy diarrhae. colitis with underlying IBd as well as dirrahae with blood- need h/h monitering iv antibiotics ,iv pain medications ,clear liquids ,also need expert consulatation. Quality Stroke Does the patient have a stroke diagnosis?: No VTE Prior VTE?: No VTE Risk Level:: Medical - moderate - high VTE Device Contraindication: N/A - Device Ordered VTE Drug Contraindication: N/A - Med Ordered
[2023-11-03 10:49] LABS: MANUAL DIFF FLAG NO
[2023-11-03 10:50] LABS: Basophils Percent Auto 0.6 % (0-2); Eosinophils Percent Auto 0.7 % (0-4); Hematocrit 34.6 % (37.0-47.0); Hemoglobin 11.1 g/dl (12.0-16.0); Imm Gran Abs Auto 0.03 X10*3/uL (0.00-0.03); Imm Gran Pct Auto 0.6 % (0.0-0.4); Lymphocytes Absolute Auto 1.8 X10*3/uL (1.2-4.9); Lymphocytes Percent Auto 32.4 % (20-40); Mean Corpuscular HGB Conc 32.1 g/dl (31.0-35.0); Mean Corpuscular Hemoglobin 27.5 pg (27.0-33.0); Mean Corpuscular Volume 85.9 fL (80.0-98.0); Mean Platelet Volume 10.7 fL (9.4-12.3); Monocytes Absolute Auto 0.4 X10*3/uL (0.1-1.2); Monocytes Percent Auto 8.1 % (2-11); Neutrophils Absolute Auto 3.1 x10*3/uL (2.0-8.3); Neutrophils Percent Auto 57.6 % (45-73); Platelet Count 257 X10*3/uL (160-400); Red Blood Count 4.03 X10*6/uL (4.20-5.50); Red Cell Distribution Width 14.4 % (11.0-16.0); White Blood Count 5.4 X10*3/uL (4.8-10.8)
[2023-11-03 11:01] LABS: Glucose, Whole Blood 148 mg/dL (60-115)
[2023-11-03 16:08] LABS: Glucose, Whole Blood 122 mg/dL (60-115)
[2023-11-03 19:59] LABS: Glucose, Whole Blood 161 mg/dL (60-115)
[2023-11-03] MEDS: Famotidine 20 MG TABLET PO (20:34)
[2023-11-03] MEDS: Insulin Lispro 100 UNIT/ML 3 ML VIAL SUBCUT (20:34)
[2023-11-03] MEDS: Docusate Sodium 100 MG CAPSULE PO (20:34)
[2023-11-03] MEDS: diphenhydrAMINE HCL 25 MG CAPSULE 50 MG PO (22:55)
[2023-11-03] MEDS: traZODone HCL 100 MG TABLET PO (22:55)
[2023-11-03] MEDS: metroNIDAZOLE/NS 500 MG/100 ML PIGGYBACK 100 MG IV (22:56)
[2023-11-04] VITALS (8 sets, daily range): BP systolic 104–140; BP diastolic 57–85; PULSE 77–100; RESP 16–18; TEMP 36.2–36.9; O2SAT 94–98
[2023-11-04] MEDS: metroNIDAZOLE/NS 500 MG/100 ML PIGGYBACK 100 MG IV (06:22)
[2023-11-04] MEDS: Omeprazole 20 MG CAPSULE.DR PO (06:22)
[2023-11-04] MEDS: HYDROmorphone HCl 0.5 MG/0.5 ML SYRINGE IVPUSH ×4 (06:31→21:47)
[2023-11-04] MEDS: ondansetron HCL 4 MG/2 ML VIAL IVPUSH ×2 (06:38→14:42)
[2023-11-04 08:00] LABS: Glucose, Whole Blood 103 mg/dL (60-115)
[2023-11-04] MEDS: Fluticasone/Umeclidinium/Vilanterol 100/62.5/25 BLST.W.DEV 1 PUFF INHALE (08:18)
[2023-11-04] MEDS: Budesonide 0.5 MG/2 ML AMPUL.NEB 0.25 MG INHALE (08:18)
[2023-11-04] MEDS: 0.9 % Sodium Chloride Flush 3 ML SYRINGE IVFLUSH ×2 (09:03→20:25)
[2023-11-04] MEDS: Pregabalin 200 MG CAPSULE PO ×2 (09:04→20:24)
[2023-11-04] MEDS: Letrozole 2.5 MG TABLET PO (09:04)
[2023-11-04] MEDS: Mesalamine 400 MG CAP.DRTAB. 2400 MG PO (10:58)
--- NOTE | 2023-11-04 11:14 | MHC.CM.PN ---
EMR REVIEWED. PER MD ROUNDS PT NOT MEDICALLY CLEARED FOR DC AT THIS TIME, REQUIRING C. DIFF TESTING. CM WILL CONTINUE TO FOLLOW.
[2023-11-04 11:40] LABS: Glucose, Whole Blood 197 mg/dL (60-115)
[2023-11-04] MEDS: levoFLOXacin/D5W 750 MG/150 ML PIGGYBACK 100 MG IV (12:31)
[2023-11-04] MEDS: Insulin Lispro 100 UNIT/ML 3 ML VIAL SUBCUT (12:31)
--- NOTE | 2023-11-04 13:47 | HO.PM.IMPN ---
Subjective Subjective Date of Service: 11/05/23 Interval History: diarahae Review of Systems has abd and diarrhae no chest pain or sob. Physical Exam Vital Signs: Vital Signs: Last Vital Signs Temp 97.5 F 11/04/23 11:51 Pulse 88 11/04/23 11:51 Resp 18 11/04/23 11:51 BP 104/57 L 11/04/23 11:51 Pulse Ox 96 11/04/23 11:51 O2 Del Method Room Air 11/04/23 11:51 BMI result Body Mass Index 22.4 Appearance: Alert.? Oriented X3.? cvs: [id number], [id number] . res: clear to auscultation ,no rhonchii or wheezing abd: no rebound or guarding ,left lower quadrent pain, bs present. ext pulses present , no cyanosis . neuro: axo3 , nonfocal. Objective Data Active Medications Albuterol Sulfate (Albuterol Sulfate 90 Mcg 8 Gm Inhaler) 2 puff INHALE Q4H PRN PRN Reason: Shortness Of Breath Or Wheezing Budesonide (Budesonide 0.5 Mg/2 Ml Ampul.Neb) 0.25 mg INHALE RBID [facility] Last Admin: 11/04/23 08:18 Dose: 0.25 mg Documented By: CALLIE Dextrose (Dextrose 50 % 25 Gm/50 Ml Syringe) 25 gm IVPUSH Q15M PRN; Protocol PRN Reason: per Hypoglycemia Standing Ord. Diphenhydramine HCl (Diphenhydramine Hcl 25 Mg Capsule) 50 mg PO BEDTIME PRN PRN Reason: Insomnia Last Admin: 11/03/23 22:55 Dose: 50 mg Documented By: JEN Docusate Sodium (Docusate Sodium 100 Mg Capsule) 100 mg PO BEDTIME [facility] Last Admin: 11/03/23 20:34 Dose: 100 mg Documented By: JEN Famotidine (Famotidine 20 Mg Tablet) 20 mg PO BEDTIME [facility] Last Admin: 11/03/23 20:34 Dose: 20 mg Documented By: JEN Fluticasone/Umeclidinium/Vilanterol (Fluticasone/Umeclidinium/Vilanterol 100/62.5/25 Blst.W.Dev) 1 puff INHALE RDAILY [facility] Last Admin: 11/04/23 08:18 Dose: 1 puff Documented By: CALLIE Glucose (Glucose Gel 15 Gm Gel..Gram.) 15 gm PO Q15M PRN; Protocol PRN Reason: per Hypoglycemia Standing Ord. Guaifenesin/Codeine Phosphate (Guaifen/Codeine Sf 200/20/10ml 10 Ml Liquid) 10 ml PO Q8H PRN PRN Reason: allergy symptoms/cough Hydromorphone HCl (Hydromorphone Hcl 0.5 Mg/0.5 Ml Syringe) 0.5 mg IVPUSH Q4H PRN; Protocol PRN Reason: Pain, Mild (Pain Scale 1-3) Last Admin: 11/04/23 12:56 Dose: 0.5 mg Documented By: FRANCISCO JAVIER Levofloxacin (Levaquin) 750 mg in 150 mls @ 100 mls/hr IV Q48H [facility] Last Admin: 11/04/23 12:31 Dose: 100 mls/hr Documented By: FRANCISCO JAVIER Insulin Human Lispro (Insulin Lispro 100 Unit/Ml 3 Ml Vial) 0 unit SUBCUT QIDACHS [facility]; Protocol Last Admin: 11/04/23 12:31 Dose: 2 unit Documented By: FRANCISCO JAVIER Ipratropium [place] (Ipratropium [place] 0.5 Mg/2.5 Ml Solution) 0.5 mg INHALE Q6H PRN PRN Reason: shortness of breath or wheezing Letrozole (Letrozole 2.5 Mg Tablet) 2.5 mg PO DAILY [facility] Last Admin: 11/04/23 09:04 Dose: 2.5 mg Documented By: FRANCISCO JAVIER Mesalamine (Mesalamine 400 Mg Cap.Drtab.) 2,400 mg PO DAILY [facility] Last Admin: 11/04/23 10:58 Dose: 2,400 mg Documented By: FRANCISCO JAVIER Metronidazole (Metronidazole 500 Mg Tablet) 500 mg PO Q8H [facility] Non-Formulary Medication (Levalbuterol Tartrate) 2 puff INHALE Q4H PRN PRN Reason: shortness of breath Omeprazole (Omeprazole 20 Mg Capsule.) 20 mg PO DAILY@0630 [facility] Last Admin: 11/04/23 06:22 Dose: 20 mg Documented By: JEN Ondansetron HCl (Ondansetron Hcl 4 Mg/2 Ml Vial) 4 mg IVPUSH Q8H PRN PRN Reason: Nausea and Vomiting Last Admin: 11/04/23 06:38 Dose: 4 mg Documented By: JEN Pregabalin (Pregabalin 200 Mg Capsule) 200 mg PO BID [facility] Last Admin: 11/04/23 09:04 Dose: 200 mg Documented By: FRANCISCO JAVIER Sodium Chloride (0.9 % Sodium Chloride Flush 3 Ml Syringe) 3 ml IVFLUSH QSHIFT [facility] Last Admin: 11/04/23 09:03 Dose: 3 ml Documented By: FRANCISCO JAVIER Trazodone HCl (Trazodone Hcl 100 Mg Tablet) 100 mg PO BEDTIME [facility] Last Admin: 11/03/23 22:55 Dose: 100 mg Documented By: JEN Labs 11/03/23 10:41 11/01/23 09:43 Labs: Laboratory Results - last 24 hr 11/03/23 11/03/23 11/04/23 15:57 19:53 07:56 POC Glucose 122 H 161 H 103 11/04/23 11:33 POC Glucose 197 H Microbiology Microbiology Results: Microbiology 11/01/23 13:25 Blood Culture - Preliminary Blood - Venous No growth after 48 hours. 11/01/23 13:25 Blood Culture - Preliminary Blood - Venous No growth after 48 hours. Assessment and Plan (1) Bloody diarrhea: Status: Acute Plan 63-year-old female with pertinent history of asthma/COPD overlap syndrome not on home oxygen, tobacco use disorder, insulin-dependent diabetes mellitus, gastroesophageal reflux disease, mood disorder, CAD status post PCI who presents to the emergency department for evaluation of diarrhae (bloody) Colitis : mild leucocytosis ,bloody diarrahe also has hx of crohn dis blood cultures pending, lactic acid normal abd pain and diarrahe added stool studies moniter h/h Start iv hydration, IV antibiotics,continue IBd meds ,iv dilaudid ,will try clear liquid s Gi eval noted-continue iv antibiotics ,moniter ,if diarrahe reoccurs -will need stool studies. mild intermittent asthma)/COPD overlap syndrome: continue home meds. Insulin-dependent diabetes mellitus with hyperglycemia: Initiating basal plus insulin regimen Tobacco use disorder: Counseled regarding cessation. Offered nicotine patch Gastroesophageal reflux disease: On PPI Mood disorder: Continue home mood stabilizers Coronary artery disease: hold asa due to blood /diarrahe. History of breast cancer: On letrozole DVT prophylaxis: mech devices due to bloddy diarrhae. colitis with underlying IBd as well as dirrahae with blood- need h/h monitering iv antibiotics ,iv pain medications ,clear liquids ,also need expert consulatation. Quality Stroke Does the patient have a stroke diagnosis?: No VTE Prior VTE?: No VTE Risk Level:: Medical - moderate - high VTE Device Contraindication: N/A - Device Ordered VTE Drug Contraindication: N/A - Med Ordered
[2023-11-04] MEDS: metroNIDAZOLE 500 MG TABLET PO ×2 (14:43→23:02)
[2023-11-04 16:49] LABS: Glucose, Whole Blood 109 mg/dL (60-115)
[2023-11-04] MEDS: Famotidine 20 MG TABLET PO (20:24)
[2023-11-04] MEDS: traZODone HCL 100 MG TABLET PO (20:24)
[2023-11-04] MEDS: Docusate Sodium 100 MG CAPSULE PO (20:24)
[2023-11-04 20:25] LABS: Glucose, Whole Blood 121 mg/dL (60-115)
[2023-11-04] MEDS: diphenhydrAMINE HCL 25 MG CAPSULE 50 MG PO (21:46)
[2023-11-05 03:34] VITALS: BP 113/67; PULSE 81; RESP 16; TEMP 36.4; O2SAT 93
[2023-11-05] MEDS: Omeprazole 20 MG CAPSULE.DR PO (06:17)
[2023-11-05] MEDS: metroNIDAZOLE 500 MG TABLET PO (06:17)
[2023-11-05] MEDS: HYDROmorphone HCl 0.5 MG/0.5 ML SYRINGE IVPUSH (06:22)
[2023-11-05] MEDS: Fluticasone/Umeclidinium/Vilanterol 100/62.5/25 BLST.W.DEV 1 PUFF INHALE (07:26)
[2023-11-05 07:30] VITALS: PULSE 85; RESP 16; O2SAT 95
[2023-11-05] MEDS: ondansetron HCL 4 MG/2 ML VIAL IVPUSH (07:35)
[2023-11-05] MEDS: 0.9 % Sodium Chloride Flush 3 ML SYRINGE IVFLUSH (07:37)
[2023-11-05] MEDS: Budesonide 0.5 MG/2 ML AMPUL.NEB 0.25 MG INHALE (07:45)
[2023-11-05 07:49] LABS: Glucose, Whole Blood 115 mg/dL (60-115)
[2023-11-05 07:59] VITALS: BP 130/67; PULSE 85; RESP 18; TEMP 36.3; O2SAT 94
[2023-11-05] MEDS: Letrozole 2.5 MG TABLET PO (09:03)
[2023-11-05] MEDS: Pregabalin 200 MG CAPSULE PO (09:04)
[2023-11-05] MEDS: Mesalamine 400 MG CAP.DRTAB. 2400 MG PO (09:04)
--- NOTE | 2023-11-05 11:26 | MHC.CM.PN ---
IMM 11/05/23 Female 63 is discharged to home today self care. Patient has arranged for transportation home.
--- NOTE | 2023-11-13 19:01 | PM.DS ---
DS: Providers Provider Date of Service: 11/05/23 Date of admission: 11/01/23 15:19 Date of discharge: 11/05/23 Primary care physician: Adela Wasserman MD Consults: 11/01/23 15:45 Consult to Gastroenterology Routine Consulting Provider: [facility] [place] Gastroenterology Services Reason for consultation: ABD PAIN Has provider been notified: No Attending physician on discharge: Nano Raphael Discharging clinician: Nano Raphael DS: Diagnosis Discharge Diagnosis (1) Bloody diarrhea: Status: Acute DS: Summary Hospital Course Hospital Course: Date of service and discharge: 11/05/23; Hpi:63y/o F with hyperlipidemia, COPD, breast cancer, diabetes, Raynaud's, CAD, bipolar, fibromyalgia, rheumatoid off arthritis, Crohn's disease came with c/o-nausea, vomiting, diarrhea, abdominal pain worse in the left lower quadrant, hematochezia for the past 2 days. Patient reports she just feels overall unwell. She reports each time she tries to eat she ends up vomiting and she has brown diarrhea with blood in it. Patient reports she is on medications for Crohn's disease and is on mesalamine and taking as prescribed. Has mild leukocytosis, CT abdomen: There are imaging findings of acute colitis but this is of uncertain cause. Patient is followed by GI here at this facility. Denies fevers, chills, sick contacts, headache, vision changes, dizziness, weakness. ed d/w GI-plan and p.o., hydration, IV antibiotics for possible colitis. Patient received levaquin/flagyl. Hospital course: Patient came to the hospital because of abdominal pain and bloody diarrhea secondary to colitis in the setting of underlying inflammatory bowel disease: Her CT abdomen showed-acute colitis, Started on IV antibiotics and H&H monitored, given IV hydration also: With the supportive care patient seem to improved to her baseline, abdominal pain improved significantly, tolerating diet, blood culture negative at 48 hours, patient antibiotics switched to p.o. Levaquin for 4 days as well as metronidazole 500 mg p.o. b.i.d. for 4 more days. Her H&H is stable around 11.1/34.6. Leukocytosis improved, blood culture negative, no fever. smoking cessation strongly advised. By or plan: complete p.o. Levaquin for 4 days as well as metronidazole 500 mg p.o. b.i.d. for 4 more days Patient was strongly advised to follow-up with PCP and GI out patiently. Above management discussed the patient detail and she understand in agreement with the above plan, time spent 50 minutes. Time Attestation Discharge coordination time: Greater than 30 minutes Quality: Safe Use of Opioids Does Pt have an Active Cancer Diagnosis on the Problem List?: No Quality: Stroke Does the patient have a stroke diagnosis?: No Physical Exam Vital Signs: Vital Signs: Last Vital Signs Temp 97.3 F 11/05/23 07:59 Pulse 85 11/05/23 07:59 Resp 18 11/05/23 07:59 BP 130/67 11/05/23 07:59 Pulse Ox 94 11/05/23 07:59 O2 Del Method Room Air 11/05/23 07:59 BMI result Body Mass Index 22.4 Appearance: Alert.? Oriented X3.? cvs: rrr, [id number] . res: clear to auscultation ,no rhonchii or wheezing abd: no rebound or guarding ,nt , bs present. ext pulses present , no cyanosis . neuro: axo3 , nonfocal. DS: Data Data Completed and Pending Completed studies during hospitalization [Text1]: Procedures Excision of Sigmoid Colon, Via Natural or Artificial Opening Endoscopic, Diagnostic (01/23/23) Imaging Chest x-ray: Radiologist's impression: ITS Impressions Abdomen/Pelvis CT 11/01/23 10:50 IMPRESSION: * There are imaging findings of acute colitis but this is of uncertain cause. * Scattered diverticula of the colon without evidence of diverticulitis. * Again noted is a small stone of the lower pole of the right kidney. No hydronephrosis. Discharge Plan Discharge Anticipated Discharge Date/Time: 11/05/23 10:30 Patient Disposition: Home, Self-Care Discharge Diagnosis: colitis Referrals: Adela Gipson MD [Primary Care Provider] - 1 Week Discharge Medications: New metronidazole 500 mg Tablet 500 mg PO Q8H Qty: 8 0RF levofloxacin 750 mg Tablet 750 mg PO Q48H Qty: 2 0RF Continued (DME) pen needle, diabetic [Comfort EZ Pen Reeder] 31 gauge x 5/16 needle See Rx Instructions .ROUTE .MEDSUPPLY Qty: 200 11RF Rx Instructions: Use 1 pen needle 6 times a day (DME) lancets [FreeStyle Lancets] 28 gauge misc See Rx Instructions .Route Qty: 100 3RF Rx Instructions: Use 1 lancet once a day budesonide 0.5 mg/2 mL suspension for nebulization 0.25 mg inhalation BID 30 Days Qty: 60 3RF Hold Instructions: Resume on 10/23/23. hold until on breo, follow up with pulmonary for further use. (DME) fadumo [facility] [place] See Rx Instructions .Route Qty: 1 0RF Rx Instructions: with seat letrozole 2.5 mg Tablet 2.5 mg PO DAILY Qty: 90 3RF aspirin 81 mg tablet,delayed release (DR/EC) 81 mg PO DAILY 90 Days Qty: 90 1RF levalbuterol tartrate 45 mcg/actuation HFA aerosol inhaler 2 puff inhalation Q4-6H PRN (Reason: shortness of breath) 30 Days Qty: 15 3RF trazodone 100 mg tablet 100 mg PO BEDTIME 90 Days Qty: 90 0RF ipratropium bromide 0.02 % solution 2.5 ml inhalation Q6H PRN (Reason: shortness of breath or wheezing) Qty: 150 3RF Trulicity 1.5 mg/0.5 mL pen injector 1.5 mg subcut TH@0900 Qty: 6 3RF pantoprazole 40 mg tablet,delayed release (DR/EC) 40 mg PO DAILY Trelegy Ellipta 100-62.5-25 mcg Blister With Device 1 inh INHALATION DAILY codeine-guaifenesin 10-100 mg/5 mL liquid 10 ml PO Q8-12H PRN (Reason: allergy symptoms/cough ) famotidine 20 mg tablet 20 mg PO BEDTIME 90 Days Qty: 90 1RF (DME) FreeStyle Lite Strips Strip MISCELLANEOUS DAILY Qty: 100 1RF Rx Instructions: Use 1 test strip three times a day albuterol sulfate 90 mcg/actuation HFA aerosol inhaler 2 inh inhalation Q4H PRN (Reason: Shortness Of Breath Or Wheezing) No Action mesalamine 1.2 gram tablet,delayed release (DR/EC) 2.4 g PO DAILY Qty: 180 0RF pregabalin [Lyrica] 200 mg capsule 200 mg PO BID Qty: 60 1RF Discharge Orders: Discharge Order (Routine); Ordered 11/05/23 Ordered By: Nano Raphael Diet: Advance to usual diet Activity on Discharge: As tolerated Stand Alone Forms: Patient Portal Discharge page Care Plan Goals: Patient came to the hospital because of abdominal pain and bloody diarrhea secondary to colitis in the setting of underlying inflammatory bowel disease: Her CT abdomen showed-acute colitis, Started on IV antibiotics and H&H monitored, given IV hydration also: With the supportive care patient seem to improved to her baseline, abdominal pain improved significantly, tolerating diet, blood culture negative at 48 hours, patient antibiotics switched to p.o. Levaquin for 4 days as well as metronidazole 500 mg p.o. b.i.d. for 4 more days. Her H&H is stable around 11.1/34.6. Patient was strongly advised to follow-up with PCP and GI out patiently. Health Concerns: As above. Plan of Treatment: As above. Assessment: As above. Patient Instructions: Colitis (ED) Discharge Date/Time: 11/05/23 11:17
== END 2023-11-05 11:17 | disposition home or self-care (01) | DRG 392 ==
LOC: HO.ED 12:03 → HO.EDOVER 15:28 → HO.S3 15:41
PROVIDERS: Internal Medicine Gastroenterology; Physician Assistant; Admitting Provider Internal Medicine; Emergency Provider Emergency Medicine Emergency Medical Services; PCP Internal Medicine; Visit Provider Internal Medicine
DX: K52.3 Indeterminate colitis (principal); K92.1 Melena; I25.10 Atherosclerotic heart disease of native coronary artery without angina pectoris; J44.9 Chronic obstructive pulmonary disease, unspecified; C50.912 Malignant neoplasm of unspecified site of left female breast; M06.9 Rheumatoid arthritis, unspecified; J45.20 Mild intermittent asthma, uncomplicated; F31.9 Bipolar disorder, unspecified; F17.210 Nicotine dependence, cigarettes, uncomplicated; Z71.6 Tobacco abuse counseling; Z20.822 Contact with and (suspected) exposure to COVID-19; Z79.811 Long term (current) use of aromatase inhibitors; Z79.82 Long term (current) use of aspirin; Z79.899 Other long term (current) drug therapy
CPT/HCPCS: 36415; 74177; 80053; 81001; 81003; 81025; 82272; 82947; 83605; 83690; 83735; 84134; 85025; 86140; 87040; 87633; 87635; 93005; 94640; 99285; J1170; J1836; J1956; J2270; J2405; J7120; Q9967

== ENCOUNTER → 2023-11-01 09:07 | Outpatient (BNV) | payer MEDICARE, MEDICAID, SELFPAY | PROVIDERS: Admitting Provider Internal Medicine; Emergency Provider Emergency Medicine Emergency Medical Services; PCP Internal Medicine; Visit Provider Internal Medicine Cardiovascular Disease | DX: R00.0 Tachycardia, unspecified (principal) | CPT/HCPCS: 93010 ==

== ENCOUNTER → 2023-11-01 15:19 | Outpatient (BNV) | payer MEDICARE, MEDICAID, SELFPAY | PROVIDERS: Admitting Provider Internal Medicine; Emergency Provider Emergency Medicine Emergency Medical Services; PCP Internal Medicine; Visit Provider Internal Medicine | DX: R19.7 Diarrhea, unspecified (principal) | CPT/HCPCS: 99222; 99231; 99232; 99239 ==

== ENCOUNTER → 2023-11-01 15:19 | Outpatient (BNV) | payer MEDICARE, MEDICAID, SELFPAY | PROVIDERS: Admitting Provider Internal Medicine; Emergency Provider Emergency Medicine Emergency Medical Services; PCP Internal Medicine; Visit Provider Internal Medicine Gastroenterology | DX: K52.9 Noninfective gastroenteritis and colitis, unspecified (principal); Z87.19 Personal history of other diseases of the digestive system; K21.9 Gastro-esophageal reflux disease without esophagitis | CPT/HCPCS: 99222 ==

== ENCOUNTER 2023-11-20 09:36 | Outpatient (REF) | payer MEDICARE, MEDICAID, SELFPAY ==
--- NOTE | ~2023-11-20 | MM_ITS ---
EXAMINATION: MM SCREENING DIGITAL BREAST TOMOSYNTHESIS, BILATERAL CLINICAL INFORMATION: Screening. Asymptomatic. 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 COMPARISON: Mammography: 09/26/2022, 09/28/2021, 11/22/2020, 11/03/2019, and dating back to 2011. TECHNIQUE: Digital breast tomosynthesis is performed in both the craniocaudal and mediolateral oblique views along with computer-aided detection (CAD). Synthesized 2D images are generated from the tomosynthesis. In addition an exaggerated right CC 3-D view was performed. FINDINGS: There are scattered areas of fibroglandular density (ACR BI-RADS breast composition Category b). Scar marker in the 6:00 axis of the left breast. Posttherapeutic changes in the left breast with slightly decreased breast size, parenchymal scarring, mild skin thickening, and mild prominence of the trabecular markings. This appears stable and unchanged without evidence of recurrent disease. There are vascular calcifications. MM/MM tomosynthesis screening BI IMPRESSION: No mammographic evidence of malignancy. No significant interval changes in the examination. Stable post treatment changes left breast. ASSESSMENT: BI-RADS BI-RADS 2 - Benign Findings RECOMMENDATION: Routine annual mammography screening. 1 year F/U This examination should not preclude the clinical evaluation of a suspicious palpable abnormality. This patient's information was entered into a reminder system with a target due date for their next mammogram.
== END 2023-11-20 09:37 | disposition home or self-care (01) ==
LOC: HO.MAMMO 09:36
PROVIDERS: PCP Internal Medicine; Visit Provider Internal Medicine
DX: Z12.31 Encounter for screening mammogram for malignant neoplasm of breast (principal)
CPT/HCPCS: 77063; 77067

== ENCOUNTER → 2023-11-20 09:45 | Outpatient (BNV) | payer MEDICARE, MEDICAID, SELFPAY | PROVIDERS: PCP Internal Medicine; Visit Provider Radiology Diagnostic Radiology | DX: Z12.31 Encounter for screening mammogram for malignant neoplasm of breast (principal) | CPT/HCPCS: 77063; 77067 ==

== ENCOUNTER 2023-11-22 07:20 | Outpatient (AMB) | payer MEDICARE, MEDICAID, SELFPAY ==
--- NOTE | 2023-11-22 07:30 | MHC.OFFVIS ---
Vital Signs 11/22/23 07:31 Height 5 ft Weight 104 lb BMI 20.3 BP 106/71 Blood Pressure Location Lt brachial Position Sitting Pulse 104 H Intake Visit Reasons: follow up Intake Note: Patient follow up for Colitis. Patient cc: abdominal pain and bloating, between diarrhea and constipation and some swallowing problems on and off. 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: No Accompanied by: Self / Same As Patient Allergies methylprednisolone Allergy (Severe, Verified 06/04/24 07:56) Rash from Solu-Medrol shellfish derived Allergy (Intermediate, Verified 06/04/24 07:56) Hives etanercept [From Enbrel] Adverse Reaction (Severe, Verified 06/04/24 07:56) Facial Swelling metformin Adverse Reaction (Severe, Verified 06/04/24 07:56) Diarrhea metronidazole [From FLAGYL] Adverse Reaction (Severe, Verified 06/04/24 07:56) Diarrhea prednisone Adverse Reaction (Intermediate, Verified 06/04/24 07:56) hallucinations, more than 20 mg doses Medication List - Last Reconciled 11/22/23 by Ruth Roman MD albuterol sulfate 90 mcg/actuation 2 inhalations inhalation Q4H PRN aspirin 81 mg PO DAILY 90 days blood sugar diagnostic (FreeStyle Lite Strips) Use 1 test strip three times a day budesonide 0.25 mg inhalation BID 30 days codeine-guaifenesin 10-100 mg/5 mL 10 mL PO Q8-12H PRN dulaglutide (Trulicity) 1.5 mg (0.5 mL) subcut TH@0900 famotidine 20 mg PO BEDTIME 90 days jckkqathosw-vjjixgrvp-efhlvadv 100-62.5-25 mcg (Trelegy Ellipta) 1 inh inhalation DAILY ipratropium bromide 2.5 mL inhalation Q6H PRN lancets (FreeStyle Lancets) Use 1 lancet once a day letrozole 2.5 mg PO DAILY levalbuterol tartrate 45 mcg/actuation 2 puffs inhalation Q4-6H PRN 30 days mesalamine 2.4 grams (2 x 1.2 gram) PO DAILY pantoprazole 40 mg PO DAILY pen needle, diabetic (Comfort EZ Pen [place]) Use 1 pen needle 6 times a day pregabalin (Lyrica) 200 mg PO BID trazodone 100 mg PO BEDTIME 90 days walker with seat HPI HPI follow up: Details: GI CLINIC VISIT FOR THIS 63-YEAR-OLD FEMALE FOR FU OF GERD AND DYSPHAGIA PT IS KNOWN TO ME FROM PAST GI VISITS FOR COLITIS SEEN ON CT SCAN AND FOR POSITIVE HEP A AB (IG M) Pt was hospitalized at [facility] in 11/01 TO 11/05/23 with abdominal pain, nausea and vomiting: Hospital course: Patient came to the hospital because of abdominal pain and bloody diarrhea secondary to colitis in the setting of underlying inflammatory bowel disease: Her CT abdomen showed-acute colitis, Started on IV antibiotics and H&H monitored, given IV hydration also: With the supportive care patient seem to improved to her baseline, abdominal pain improved significantly, tolerating diet, blood culture negative at 48 hours, patient antibiotics switched to p.o. Levaquin for 4 days as well as metronidazole 500 mg p.o. b.i.d. for 4 more days. Her H&H is stable around 11.1/34.6. Leukocytosis improved, blood culture negative, no fever. smoking cessation strongly advised. plan: complete p.o. Levaquin for 4 days as well as metronidazole 500 mg p.o. b.i.d. for 4 more days Patient was strongly advised to follow-up with PCP and GI out patiently. HAD BRONCHOSCOPY ON 08/16? , FOUND TO HAVE GENERALIZED INFLAMMATION.? AND ENDOBRONCHIAL LESION IN THE RIGHT LOWER LOBE WAS SUSPECTED. BIOPSY AND CYTOLOGY IS CONSISTENT WITH MILD INFLAMMATORY CHANGES, NO METAPLASIA NEOPLASTIC CELLS. IMAGING STUDIES:? 10/15/23 GASTRIC EMPTYING STUDY SHOWED: 1 hour 64% (normal 37%-90%) 2 hours 50% (normal 30%-60%) 3 hours 33% 4 hours 13% (normal 0%-10%) NM/NM gastric emptying study IMPRESSION: Abnormal grade 1 delayed 4 hour gastric emptying study. US WITH DUPLEX: Elevated velocity in the proximal superior mesenteric artery is nonspecific. By velocity criteria, this is consistent with hemodynamically significant stenosis. However, the distal waveforms are not indicative of significant upstream disease and there is no significant stenosis seen on CT from 02/01/2023. 10/2022 BARIUM SWALLOW SHOWED:Following oral administration of thick, thin barium and barium-coatedturkey in upright view, there is normal propagation of bolus from the oral cavity through the pharynx, esophagus into stomach without obstruction, narrowing or stricture. There is mild prominence of cricoesophageal sphincter indenting the upper esophagus. There is mild ventral spondylosis at the C5-C6 and C6-C7 disc levels with minimal indentation on the posterior cervical esophageal wall. However, there is no obstruction. On oral administration of barium tablet, there is transient holdup in the mid esophagus and slightly longer in the distal esophagus. 02/21/22 ABD US SHOWED: 1.? Increased hepatic echogenicity suggesting hepatic steatosis. 2.? Nonobstructive calculus in the right renal lower pole measuring 3 mm. 02/[address] SCAN SHOWED:A cause for the patient's diffuse abdominal pain has not been found.Incidental note made of: 1.? Hepatic steatosis. 2.? Small stable adrenal nodule, unchanged over many years 3.? Status post hysterectomy. 08/[address] SCAN SHOWED:Mild bowel wall thickening of the sigmoid colon which could be due to amild colitis. There is no surrounding pericolonic edema however. There is no bowel obstruction. ENDOSCOPIC STUDIES: 05/2023 CAPSULE ENDOSCOPY SHOWED: Findings: Lower esophagus looked normal, stomach with granular mucosa and patchy erythema consistent with chronic gastritis small bowel entered at 2 hr 36 min min. Mucosa well visualized and appeared normal, no masses, lesions or ulcers seen. cecum entered at 4 hr 44 min and colonic mucosa looked normal Conclusion: chronic gastritis, other santiago neg small bowel study 06/15/22 EGD SHOWED: ESOPHAGUS: Tortuous esophagus with increased tertiary contractions without stricture or ring.?GE junction at 36 cms. No esophagitis or Austin's. STOMACH: Moderate diffuse gastric erythema - no ulcers were seen. Biopsies were obtained from gastric antrum and body. DUODENUM: Normal - biopsied to check for celiac sprue Plan:? Further evaluation with a Duplex US to rule out small bowel ischemia [place] of Dicyclomine prn while awaiting further workup. BIOPSIES SHOWED: A.? Small bowel, biopsy:? Small bowel mucosa with preserved villi and no specific change; no evidence of celiac disease. B.? Gastric antrum, biopsy:? Chronic Helicobacter gastritis with minimal activity and focal intestinal metaplasia; negative for dysplasia.? C.? Gastric body, biopsy:? Chronic Helicobacter gastritis with minimal activity; negative for intestinal metaplasia and dysplasia. 03/24/21 COLONOSCOPY SHOWED:No polyps were detected.Random biopsies were obtained from the right and left colon Moderate to severe diverticulosis seen in the entire colon Of note pt denies additional episodes of fecal incontinence. Plan:? Patient has an appointment on 04/20/21 in the GI Clinic with Ruth Roman M.D. Repeat Colonoscopy in 10 years if biopsies are normal. A handout on diverticulosis was were given in the discharge area BIOPSIES SHOWED: A.? Colon, right, biopsy:? Colonic mucosa within normal limits. B.? Colon, left, biopsy:? Colonic mucosa within normal limits. COMMENT: Diagnostic features of microscopic colitis are not seen. 08/2019:? Colonoscopy Findings: Edema, erythema with friable appearing mucosa and scattered ulcerations from 10to 30 cms - random biopsies obtained. Colon inflammation can be due to ischemic colitis or stercoral ulcers related to constipation and irritation of the colon from hard stools. No polyps were detected Moderate to severe diverticulosis seen in the left colon. Plan: Await pathology results. Regular diet today. Start Miralax once daily for constipation. Continue IV antibiotics x 24 hours and then switch to PO antibiotics in the am for another 3 days. Patient to be scheduled for a FU appointment in the GI Clinic with Ruth Roman M.D. in 1-2 weeks. Above findings were reviewed with the patient. BIOPSIES SHOWED: Colon, left, biopsies: Colonic mucosa with focal superficial epithelial sloughing, hemorrhage and hyalinization possibly representing early ischemic colitis;? negative for dysplasia/malignancy. TODAY'S VISIT: I havent been feeling good since I left the hospital Generalized body aches, diarrhea and constipation. Has constipation for a week and then diarrhea for 2 days. Taking Amitiza daily for constipation. Seen by Corncob Pipe Supervisor and was told she had stage 3 kidney disease Patient cc: abdominal pain and bloating, between diarrhea and constipation and some swallowing problems on and off. Continues to have nausea, bloating, gas and poor appetite Notes early satiety and denies vomiting. Hx of long standing DM and advised to schedule a GES Can go days without a BM - has a BM every 4-5 days. Stool is soft and mushy and hard to pass. Lately every time she coughs, she feels pressure and has to go to the bathroom and passes a small piece of stool. Takes Amitiza daily and colace prn PAST VISITS: Seen at [facility] ER on 07/24/23 with abd pain and rectal bleeding CT scan was done and pt informed she had diverticulitis and treated with PO antibiotics (amox) for a week. Seen again on 08/10 at [facility] and had repeat CT scan which showed colitis and kidney stones Prescribed amoxicillin x 10 days and oxycodone and has not passed the kidney stone yet. Lab results reviewed - IBD serology suggestive of Crohn's disease Pt seen at [facility] ED on 05/16/23 with chest pain and dubois was negative. Pt is on sulfasalazine for RA which is on hold to see if nausea gets better. 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 Unable to take biologics for RA due to COPD. Tried Humira and had to be stopped due to facial swelling. Tried Embril and was stopped due to worsening COPD. She was told by her Oil Well Fishing Tool Operator that she is unable to use biologics I have been feeling horrible Has dizziness and nausea x past 3 weeks. Went to bed Saturday night and noted pain in the pit of the stomach. Had chills, felt hot and cold and had sweating and generalized itching [place] better yesterday and had diarrhea. Feels a little better today. Has been taking Marijuana once a day for nausea for the past 2 weeks and it helps the nausea. Hospitalized at [facility] from 01/23 to 01/26/23 with an episode of ischemic colitis and evaluated by Flex Sig Pt completed course of antibiotics prescribed at discharge. Pt complains of a nausea, abdominal pain, sour stomach and diarrhea with black stools for the past 3 days. Having 4 pudding like stools a day. Abd pain comes and goes. Pt complains of sweating and denies fevers. Pt complains of weakness and dizziness. Denies hx of PUD, aspirin or NSAID use. Took peptobismol 1 tablet last Saturday which did not help the pain. Takes Ondansetron for nausea which has not been helpful. PAST VISTS: Seen at [facility] ED in Nov and early Dec with abdominal pain, nausea and vomiting. Discharged home on Prednisone and had to return with worsening abdominal pain. Thinks prednisone may have aggravated the pain. Doing pretty good today. Notes intermittent nausea Appetite is fair. Few days ago, she noted cramping related to constipation. She was able to have a BM with diarrhea and pain improved Has a BM twice a week - no BM in the past 4 days. Takes Amitiza twice daily for constipation and Senna prn when she feels constipated. Started on sulfasalazine 2 months ago for RA - unable to tolerate biologics Pt stopped taking pantoprazole 2 months ago (she was told by the pharmacist that she cant take Pantoprazole with Famotidine) Pt advised to resume Pantoprazole Weight is 113 lbs - gained 4 lbs. She stopped the brillinta 2 weeks ago since her symptoms get worse after taking these medications. Wt loss from 140 in Dec, 2021 to 115 lbs since she is eating less. Hospitalized with NSTEMI in Dec, 2021 and had 2 stents. Taking aspirin and Brilinta twice a day Had an MRI on the brain and changes noted on the right and left side Waiting to see a Neurologist. Noted HAs and nausea since 12/22/21 - assumed nausea was due to migraines. Still having some ZHENG's. Nausea is constant. Notes heartburn and regurgitation in the middle of the night She is unable to breath and has? water brash. Not eating and loosing weight. Denies constipation or diarrhea. Patient notes heartburn and dysphagia to solids and liquids. Gained 5 lbs in 2 weeks. Has COPD and asthma. 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 Acute respiratory distress Tendonitis of ankle or foot Cough Stable angina Anxiety CAD (coronary artery disease) HLD (hyperlipidemia) HTN (hypertension) COPD exacerbation Hyperkalemia Atherosclerotic cardiovascular disease Hospital discharge follow-up Colitis GERD (gastroesophageal reflux disease) CVA (cerebral vascular accident) (~2018) Breast pain, right Rash Bloody diarrhea PAD (peripheral artery disease) Hyperlipidemia LDL goal <100 COPD (chronic obstructive pulmonary disease) Infiltrating ductal carcinoma of left breast, stage 2 Insomnia Dyslipidemia Bipolar 1 disorder, depressed Cough Restrictive airway disease Hypothyroid IDDM (insulin dependent diabetes mellitus) Vitamin D deficiency Osteoporosis Breast cancer Hyperparathyroidism Thyroid nodule T2DM (type 2 diabetes mellitus) Depression Fibromyalgia Seropositive rheumatoid arthritis Reactive airways dysfunction syndrome Allergic rhinitis Irritable bowel Anxiety Bronchial asthma Diabetes type 2, uncontrolled Surgical History S/P laparoscopic colectomy (04/15/24) Hx of sigmoidoscopy History of bronchoscopy Hx of endoscopy H/O cardiac catheterization History of lumpectomy of left breast History of pubovaginal sling History of esophagogastroduodenoscopy (EGD) History of tubal ligation History of colonoscopy History of bunionectomy of both great toes H/O: hysterectomy Family History Mother Diabetes HTN (hypertension) Uterus cancer Malignant tumor of head Breast cancer Father Diabetes HTN (hypertension) CVD (cardiovascular disease) Heart problem Maternal Aunt Breast cancer Brother Myocardial infarction S/P CABG x 4 Family/Other FH: mental illness Family/Other Lung cancer Other Mental health disorder Social History Household Members: Family Household Members Other:: sister Housing: House Are you a primary director of healthcare systems to a significant other at home: No Do you presently have visiting nurse or other home services: No Unable to assess alcohol history related to: Unknown Alcohol intake: never Comment: Low fall Patient Tobacco Use Status: Current everyday Tobacco user Tobacco use type: Cigarette Cigarette Packs Per Day: 0.5 Cigarettes Per Day: 3 Years Smoked: 48 e-Cigarette/Vaping Use: Never Used Second Hand Smoke Exposure: No Substance Use Type: Marijuana Advance Directives Date on File: 12/22/21 service: No Current occupational status: disabled Current occupation: rt handed Cognitive needs: No Hearing needs: No Vision needs: Yes Review of Systems Const All systems reviewed & are unremarkable except as noted in HPI and below Physical Exam Vital Signs: Last Vital Signs Pulse 104 H 11/22/23 07:31 BP 106/71 11/22/23 07:31 BMI result Body Mass Index 20.3 Const General: healthy appearing and no acute distress Nutritional Appearance: average body habitus Orientation/consciousness: patient oriented x3 Limitations: no limitations HEENT Head: Yes normal to inspection Ears: hearing grossly normal bilaterally Mouth: Normal oral and palatal mucosa present Eyes Sclerae: sclerae normal Pupils: Equal, round and reactive pupils present Neck Neck: Yes normal visual inspection Chest Chest palpation & inspection: normal inspection of the chest Resp Effort & Inspection: normal respiratory effort Auscultation: clear to auscultation bilaterally Cardio Palpation: normal PMI Rate: regular rate Rhythm: regular rhythm Heart sounds: S1 normal heart sound present, S2 normal heart sound present and no murmurs GI Palpation (GI): Soft to palpation, Tenderness to palpation present (GI) (mild LLQ tenderness) and No hepatosplenomegaly present Auscultation: normal bowel sounds Rectal Exam - Female: deferred Skin General skin exam: no rashes or lesions noted Neuro General: patient oriented x3, gait normal and moves all extremities Cranial nerves: Yes Equal, round and reactive pupils present Psych Appearance: grossly normal Mental Status: mental status grossly normal Quality Reporting (2019) Adult ([facility] 13801/09/69) Smoking risk assessment performed?: Yes Patient Tobacco Use Status: Current everyday Tobacco user Assessment & Plan Assessment & Plan (1) Bloody diarrhea: Code(s): R19.7 - Diarrhea, unspecified Category: Medical (2) Colitis: Code(s): K52.9 - Noninfective gastroenteritis and colitis, unspecified Category: Medical (3) GERD (gastroesophageal reflux disease): Code(s): K21.9 - Gastro-esophageal reflux disease without esophagitis Category: Medical (4) History of ischemic colitis: Code(s): Z87.19 - Personal history of other diseases of the digestive system Category: Medical (5) History of Helicobacter pylori infection: Code(s): Z86.19 - Personal history of other infectious and parasitic diseases Category: Medical (6) Vitamin D deficiency: Code(s): E55.9 - Vitamin D deficiency, unspecified Category: Medical (7) Chronic constipation: Code(s): K59.09 - Other constipation Category: Medical Plan 63 YF with rheumatoid arthritis--Halista @ [facility] [place]-discharged, COPD, fibromyalgia, asthma, Elevated levels of transaminases? & lactic acid dehydrogenase, Hepatic steatosis Thalamic pain syndrome,? H. pylori infection - treated, IBS (irritable bowel syndrome), TIA'S, urinary incontinence, chronic bronchitis, anxiety, depression, diabetes mellitus, left breast? cancer. Patient followed in GI for GERD and long standing constipation?likely due to IBS with constipation/ slow transit due to medications. Partial? improvement with Senna 1-2 tablet at? bedtime. Patient was diagnosed with Helicobacter pylori gastritis on EGD in?06/2018 and was treated with triple therapy. 06/2021 FU stool antigen for H pylori was negative Pt was advised to start Pantoprazole twice daily for GERD She has a hx of dysphagia likely due to esophageal motility disorder - no stricture or EOE noted on past EGD. Pt has been followed recently for upper abdominal pain, nausea and vomiting with decreased PO intake and wt loss 06/15/22 EGD was performed in findings as noted above Pt was advised to use a Foam Wedge at night and take famotidine at bedtime for nighttime reflux symptoms. If symptoms persist she may need further evaluation with Esophageal manometry and pH testing prior to considering fundoplication. 01/10/23 Pt seen with worsening symptoms, stopped taking Pantoprazole 2 months ago and advised to resume and take Famotidine prn for breakthrough symptoms 02/01/23 Pt complains of abd pain, bloating with diarrhea and black stools x past 3 days with weakness and dizziness Patient was advised to go to [facility] ER for further evaluation with labs and repeat CT scan (for Fu of ischemic colitis) Pt had a stable Hct and stool occult blood was negative 04/05/23 Pt advised to have labs and schedule an abd US with doppler to rule out mesenteric ischemia which was negative Stool calprotectin was borderline at 92. C1q, C1 estrase inhibitor protein and C4 were normal 04/29/23 IBD serologies were suggestive of Crohn's disease 06/03/23 Capsule Endoscopy showed: Conclusion: chronic gastritis, other santiago neg small bowel study . 08/16/23 Pt advised to start Lialda 2.4 grams daily for suspected Crohn's disease (Abd pain, nausea, fecal calprotectin of 92 and IBD serologies positive for Crohn's disease) Referral was sent to urology for follow-up of kidney stones Records requested from [facility] ER visit on 08/10/23 09/19/23 Continues to have nausea, bloating, gas and poor appetite Notes early satiety and denies vomiting. Hx of long standing DM. Pt advised to increase Amitiza to 16 mcg twice a day and to schedule a GES 11/22/23 Pt advised to start Trulance 3 mg daily for constipation Fu in 8 weeks Medications: New plecanatide (Trulance) 3 mg PO DAILY 30 tabs 3RF 30 days K59.09 - Other constipation sennosides-docusate sodium 8.6-50 mg (Senna with Docusate Sodium) Please take every other day at bedtime 2 tab-caps (2 x 8.6-50 mg) PO BEDTIME 120 tabs 2RF 60 days Coding Level of Care Code Est Pt Level 4 (65313) Diagnoses Bloody diarrhea R19.7 Colitis K52.9 Gastroesophageal reflux disease without esophagitis K21.9 History of ischemic colitis Z87.19 History of Helicobacter pylori infection Z86.19 Vitamin D deficiency E55.9 Chronic constipation K59.09 Time Spent (min) 25
[2023-11-22 07:31] VITALS: BP 106/71; PULSE 104; BMI 20.3
== END 2023-11-22 08:17 | disposition home or self-care (01) ==
PROVIDERS: PCP Internal Medicine; Visit Provider Internal Medicine Gastroenterology
DX: R19.7 Diarrhea, unspecified (principal); K52.9 Noninfective gastroenteritis and colitis, unspecified; K21.9 Gastro-esophageal reflux disease without esophagitis; Z87.19 Personal history of other diseases of the digestive system; Z86.19 Personal history of other infectious and parasitic diseases; E55.9 Vitamin D deficiency, unspecified; K59.09 Other constipation
CPT/HCPCS: 99214

== ENCOUNTER → 2023-11-22 07:20 | Outpatient (BNVA) | payer MEDICARE, MEDICAID, SELFPAY | PROVIDERS: PCP Internal Medicine; Visit Provider Internal Medicine Gastroenterology | DX: K52.9 Noninfective gastroenteritis and colitis, unspecified (principal); K21.9 Gastro-esophageal reflux disease without esophagitis; K59.09 Other constipation; E55.9 Vitamin D deficiency, unspecified; Z86.19 Personal history of other infectious and parasitic diseases; Z87.19 Personal history of other diseases of the digestive system | CPT/HCPCS: 99212 ==

== ENCOUNTER 2023-11-22 08:22 | Emergency (ER) | payer MEDICARE, MEDICAID, SELFPAY ==
[2023-11-22 08:27] VITALS: BP 110/75; PULSE 110; RESP 18; TEMP 36.2; O2SAT 95; BMI 21.7
== END 2023-11-22 11:16 | disposition left against medical advice (07) ==
PROVIDERS: Emergency Provider Emergency Medicine
DX: M25.511 Pain in right shoulder (principal); Z20.822 Contact with and (suspected) exposure to COVID-19; Z20.828 Contact with and (suspected) exposure to other viral communicable diseases
CPT/HCPCS: 0241U; 99281; 99283

== ENCOUNTER 2023-11-27 07:41 | Outpatient (AMB) | payer MEDICARE, MEDICAID, SELFPAY ==
[2023-11-27 07:44] VITALS: BP 122/70; PULSE 104; O2SAT 97; BMI 21.7
--- NOTE | 2023-11-27 07:44 | MHC.PC.OV ---
Vital Signs 11/27/23 07:44 Height 4 ft 10 in Weight 47.174 kg BMI 21.7 BP 122/70 Blood Pressure Location Lt brachial Position Sitting Pulse 104 H Pulse Source Pulse Oximeter Pulse Oximetry (%) 97 Oxygen Delivery Method Room Air Intake Visit Reasons: [facility] Abdominal Pain/Colitis 11/01-11/13 Allergies dog dander [DOGS] Allergy (Intermediate, Verified 11/27/23 07:45) Respiratory distress shellfish derived Allergy (Intermediate, Verified 11/27/23 07:45) Hives methylprednisolone Allergy (Verified 11/27/23 07:45) Rash etanercept [From Enbrel] Adverse Reaction (Intermediate, Verified 11/27/23 07:45) Facial Swelling ibuprofen [Ibuprofen] Adverse Reaction (Intermediate, Verified 11/27/23 07:45) STOMACH UPSET, abdominal pain, nausea and vomiting metformin Adverse Reaction (Intermediate, Verified 11/27/23 07:45) Diarrhea metronidazole [From FLAGYL] Adverse Reaction (Intermediate, Verified 11/27/23 07:45) Diarrhea prednisone Adverse Reaction (Intermediate, Verified 11/27/23 07:45) hallucinations, higher than 20 Tobacco use date assessed: 11/27/23 Dental Screening Dental Screen Date: 11/27/23 Did you have a dental visit in the last 12 months?: No Did you have a dental problem in the last 6 months where you did not have access to dental care?: No Was dental information given to patient?: No HPI HPI Comments History of Present Illness Details 63-year-old female with history of hyperlipidemia, COPD, breast cancer, insulin-dependent type 2 diabetes, Raynaud's disease, bipolar disorder, rheumatoid arthritis, Crohn's disease presents to the office for hospital discharge follow-up. She was admitted to [facility] from 11/01-11/05 due to colitis in setting of underlying inflammatory bowel disease. CT of the abdomen/pelvis showed acute colitis and she was started on IV Levaquin and metronidazole as well as IV hydration and supportive care. During admission, abdominal pain improved significantly and she was able to tolerate diet. Blood cultures were negative and antibiotics were changed to oral Levaquin and metronidazole which she was discharged on for an additional 4 days which she completed. There was a mild leukocytosis on admission of 11.8 which resolved with antibiotic therapy. Hospital course uncomplicated. Discharge medications have been reviewed and reconciled. SHe tells me today that abd pain has nearly resolved. She continues to have epigastric discomfort and nausea and recently had gastric emptying study which showed gastroparesis. She follows with Dr. Rivera in Gastroenterology and continues on mesalamine for her Crohn's colitis and also has ondansetron p.r.n. as well as pantoprazole. She continues to experience intermittent alternating diarrhea and constipation. No fevers or chills. Her main concern today is diffuse pain. She does have a known history of fibromyalgia and was thought to have rheumatoid arthritis but per rheumatology does not. But in particular, she has pain in the bilateral knees, shoulders, hands, upper back that has been worse for the last 1 week. She also tells me that she has been more anxious and depressed recently. No SI/HI. She does not have a therapist is not interested in this. She is not currently on any mood stabilizers or antidepressants. NO redness or warmth overlying joints. [facility] Medical History Acute respiratory distress Hospital discharge follow-up Tendonitis of ankle or foot Colitis Cough Anxiety CAD (coronary artery disease) HLD (hyperlipidemia) HTN (hypertension) T2DM (type 2 diabetes mellitus) COPD exacerbation Hyperkalemia Atherosclerotic cardiovascular disease GERD (gastroesophageal reflux disease) CVA (cerebral vascular accident) Breast pain, right Rash Bloody diarrhea PAD (peripheral artery disease) Hyperlipidemia LDL goal <100 COPD (chronic obstructive pulmonary disease) Infiltrating ductal carcinoma of left breast, stage 2 Insomnia Dyslipidemia Bipolar 1 disorder, depressed Cough Restrictive airway disease Hypothyroid IDDM (insulin dependent diabetes mellitus) Vitamin D deficiency Osteoporosis Hyperparathyroidism Thyroid nodule Depression Fibromyalgia Seropositive rheumatoid arthritis Reactive airways dysfunction syndrome Allergic rhinitis Irritable bowel Anxiety Bronchial asthma Diabetes type 2, uncontrolled Hypertension Surgical History Hx of sigmoidoscopy History of bronchoscopy Hx of endoscopy H/O cardiac catheterization History of lumpectomy of left breast History of pubovaginal sling History of esophagogastroduodenoscopy (EGD) History of tubal ligation History of colonoscopy History of bunionectomy of both great toes H/O: hysterectomy Family History Mother Diabetes HTN (hypertension) Uterus cancer Malignant tumor of head Breast cancer Father Diabetes HTN (hypertension) CVD (cardiovascular disease) Heart problem Maternal Aunt Breast cancer Brother Myocardial infarction S/P CABG x 4 Family/Other FH: mental illness Family/Other Lung cancer Other Mental health disorder Social History Household Members: Family Household Members Other:: sister Housing: Homeless Are you a primary care director to a significant other at home: No Do you presently have visiting nurse or other home services: Yes ([employer]) Unable to assess alcohol history related to: Unknown Alcohol intake: never Patient Tobacco Use Status: Current everyday Tobacco user Tobacco use type: Cigarette Cigarette Packs Per Day: 0.5 Cigarettes Per Day: 3 Years Smoked: 48 e-Cigarette/Vaping Use: Never Used Second Hand Smoke Exposure: No Substance Use Type: Marijuana Advance Directives Date on File: 12/22/21 service: No Current occupational status: disabled Current occupation: rt handed Cognitive needs: No Hearing needs: No Vision needs: Yes Questionnaire PHQ-9 Over the last 2 weeks, how often have you been bothered by any of the following problems? 1. Little interest or pleasure in doing things: nearly every day 2. Feeling down, depressed, or hopeless: nearly every day 3. Trouble falling or staying asleep, or sleeping too much: nearly every day 4. Feeling tired or having little energy: nearly every day 5. Poor appetite or overeating: nearly every day 6. Feeling bad about yourself - or that you are a failure or have let yourself or your family down: nearly every day 7. Trouble concentrating on things, such as reading the newspaper or watching television: nearly every day 8. Moving or speaking so slowly that other people could have noticed. Or the opposite - being so fidgety or restless that you have been moving around a lot more than usual: nearly every day 9. Thoughts that you would be better off or of hurting yourself in some way: not at all Total score: 24 Depression Screening Interpretation: Positive (no suicidal thoughts) Depression Screening Follow-up: Existing condition, In treatment and Community Mental Health Worker F/U Depression Screening Done: Yes 40390 - PHQ-9 Billing: Yes Source: Developed by Drs. Hernandez Norris, Gissell SolorzanoGilmar and colleagues, with an educational chris from [employer]. Thrive Questionnaire Date Thrive assessed: 11/27/23 I am a: Patient What is your living situation today?: I have a steady place to live Within the past 12 months, did the food you bought not last and you didn't have the money to get more?: Never true Within the past 12 months, did you worry whether your food would run out before you got money to buy more?: Never true Do you have trouble paying for medicines?: No Do you have trouble getting transportation to medical appointments?: No Do you have trouble paying your heating and electricity bill?: No Do you have trouble taking care of your child, family member or friend?: No Do you have trouble with day-to-day activities such as bathing, preparing meals, shopping, managing finances, etc.?: No Are you currently unemployed and looking for a job?: No Are you interested in more education?: No Currently or been in a relationship where the following occur: no concerns reported AUDIT C Alcohol Use Questionnaire (AUDIT-C) 1. How often do you have a drink containing alcohol?: Never Total Score: 0 Score Reviewed/Action Taken: No FLAVIA-7 AMB Questionnaire FLAVIA-7 Date FLAVIA - 7 assessed: 11/27/23 Feeling nervous, anxious, or on edge: 1 = Several days Not being able to stop or control worryin = Several days Worrying too much about different things: 1 = Several days Trouble relaxin = Several days Being so restless that it is hard to sit still: 1 = Several days Becoming easily annoyed or irritable: 1 = Several days Feeling afraid as if something awful might happen: 1 = Several days Total FLAVIA-7 score (0-4 normal; 5-9 mild; 10-14 moderate; 15-21 severe): 7 Source: Developed by Drs. Hernandez Norris, Gissell Solorzano, Gilmar Szymanski and colleagues, with an educational hcris from [employer]. Review of Systems Const All systems reviewed & are unremarkable except as noted in HPI and below Physical exam (Primary Care) Vital Signs: Last Vital Signs Pulse 104 H 11/27/23 07:44 BP 122/70 11/27/23 07:44 Pulse Ox 97 11/27/23 07:44 Oxygen Delivery Method Room Air 11/27/23 07:44 BMI result Body Mass Index 21.7 Tobacco/Smoking Status: Tobacco use Status Tobacco use date assessed 11/27/23 11/27/23 07:50 Patient Tobacco Use Status Current everyday Tobacco 11/27/23 07:50 Tobacco use type Cigarette 11/27/23 07:50 e-Cigarette/Vaping Use Never Used 11/27/23 07:50 PHQ-9: PHQ-9 Score PHQ-9: Total score 11/27/23 16:47 Depression Screening Interpretation: Positive (no suicidal thoughts) Depression Screening Follow-up: Existing condition, In treatment and Community Mental Health Worker F/U Thrive Assessment: Date of Thrive Assessment Date Thrive assessed 11/27/23 11/27/23 07:50 Currently or been in a relationship where the following occur: no concerns reported Const Other: Constitutional - Awake and Alert, No apparent distress Eyes - PERRLA, EOMI Cardiovascular - S1S2, RRR, No edema Respiratory - Normal lung expansion, Normal respiratory effort, No respiratory distress, CTA bilaterally Gastrointestinal - NT / ND; +BS; No rebound or guarding Musculoskeletal - Normal inspection, normal ROM. TTP bilateral shoulder, bilateral knees, l wrist, anterior chest, upper trapezius Skin - Warm/Dry Neurological - Alert & oriented x3 Psychological - tearful at times Results Reviewed Results Reviewed: ED provider note, cbc, cmp, blood cultures, ct abd/pelvis, H&P, Discharge summary, GI office note, gastric emptying study Assessment and Plan Assessment & Plan (1) Hospital discharge follow-up: Code(s): Z09 - Encounter for follow-up examination after completed treatment for conditions other than malignant neoplasm Plan: She below (2) Colitis: Code(s): K52.9 - Noninfective gastroenteritis and colitis, unspecified Plan: Resolved. Admitted for unspecified acute colitis seen on CT abd/pelvis symptomatic with bloody diarrhea. Completed course of levaquin and flagyl with resolution of symptoms. Continue mesalamine and budesonide for management of Crohns colitis. Discussed inflammatory foods and other potential triggers such as uncontrolled stress/mood disorder and smoking that could be contributing to flare ups. Prescribed duloxetine to help with mood stabilization. Strongly encouraged smoking cessation. Follow up with GI as scheduled. (3) Fibromyalgia: Code(s): M79.7 - Fibromyalgia Plan: Uncontrolled. Discussed various factors that can be contributing to uncontrolled pain levels including unstable mood and smoking. She declines therapy. Prescribed duloxetine 30mg daily x 1 week, then 60mg daily which may help with both anxiety/depression as well as chronic pain. She can continue lyrica as prescribed. Avoid inflammatory foods- discussed avoidance of sugars, processed foods, and refined carbohydrates. Avoid alcohol. Smoking cessation strongly advised. Recommend increased activity such as weight bearing exercise, yoga/lianna chi. Practicing mindfulness. Follow up with PCP in 1 month. (4) Gastroparesis: Code(s): K31.84 - Gastroparesis Plan: Reviewed last gastric emptying study 09/2023 showing grade 1 gastroparesis. This is likely contributing to her nausea and epigastric pain. Her diabetes is well controlled with last A1c of 6.9%. Her trulicity could possibly be contributing to her symptoms but is contirbuting to her diabetes control. She is not vomiting. Will defer diabetes management and continuation of trulicity to pt pcp. Recommend smaller meals that are well cooked and lower in insoluble fiber. The above mentioned duloxetine may also be benefical. Follow up [facility] and PCP. Medications: New duloxetine Take after completing 7 days course of 30mg daily 60 mg PO DAILY 30 caps 0RF duloxetine Take 30 mg daily x 7 days, then increase to 60mg daily 30 mg PO DAILY 7 caps 0RF Refilled blood sugar diagnostic (FreeStyle Lite Strips) Use 1 test strip three times a day 100 ea 1RF diabetes mellitus E11.9 - Type 2 diabetes mellitus without complications, Z79.4 - watermaster (current) use of insulin pen needle, diabetic (Comfort EZ Pen [place]) Use 1 pen needle 6 times a day 200 ea 11RF E11.65 - Type 2 diabetes mellitus with hyperglycemia Coding Level of Care Code Est Pt Level 5 (32870) Diagnoses Hospital discharge follow-up Z09 Colitis K52.9 Fibromyalgia M79.7 Gastroparesis K31.84 Time Spent (min) 45 Comment time spent reviewing above, interview/exam with pt, and documentation time
== END 2023-11-27 08:35 | disposition home or self-care (01) ==
PROVIDERS: PCP Internal Medicine; Visit Provider Physician Assistant
DX: K52.9 Noninfective gastroenteritis and colitis, unspecified (principal); M79.7 Fibromyalgia; K31.84 Gastroparesis; J44.1 Chronic obstructive pulmonary disease with (acute) exacerbation
CPT/HCPCS: 99215

== ENCOUNTER 2023-12-11 10:01 | Inpatient (IN) | payer MEDICARE, MEDICAID, SELFPAY ==
[2023-12-11] VITALS (11 sets, daily range): BP systolic 89–144; BP diastolic 48–84; PULSE 76–139; RESP 13–18; TEMP 36.3–36.9; O2SAT 95–100; BMI 21.1; BMI 22.3
--- NOTE | ~2023-12-11 | XR_ITS ---
EXAMINATION: XR CHEST CLINICAL INFORMATION: Shortness of breath COMPARISON: Previous chest x-ray most recent September 2023 TECHNIQUE: Frontal view of the chest was obtained. FINDINGS: No significant abnormality is noted involving the heart, lungs, mediastinum, bony thorax or soft tissues. XR/XR chest 1V IMPRESSION: Unremarkable examination.
--- NOTE | ~2023-12-11 | CT_ITS ---
EXAMINATION: CT ABDOMEN AND PELVIS WITH CONTRAST CLINICAL INFORMATION: Left lower quadrant pain. Rectal bleeding. Rule out diverticulitis. COMPARISON: Previous CT of the abdomen and pelvis most recent 11/01/2023 TECHNIQUE: Multidetector volumetric images were obtained from the superior aspect of the liver through the pubic symphysis following administration 85 mL of Omnipaque 350 intravenous contrast. Sagittal and coronal reformatted images were obtained on the technologist's workstation. Oral contrast: Yes This CT examination was performed using dose optimization techniques as appropriate, variously including the following: *Automated exposure control *Adjustment of mA and/or kV according to patient size (this includes techniques or standardized protocols for targeted exams where dose is matched to indication/reason for exam; i.e. extremities or head) *Use of iterative reconstruction technique DLP: 200 mGy-cm FINDINGS: LUNG BASES: The visualized lung bases are unremarkable. LIVER, GALLBLADDER, AND BILIARY TREE: The liver is normal in size, shape, and attenuation. No focal hepatic lesion or biliary ductal dilatation is present. The gallbladder is unremarkable with no evidence of radiopaque gallstones, gallbladder wall thickening, or obvious pericholecystic inflammatory changes. PANCREAS: Unremarkable. SPLEEN: Unremarkable. ADRENAL GLANDS: Unremarkable. KIDNEYS AND URETERS: The kidneys are normal in size, shape, and attenuation. No hydronephrosis, hydroureter, or calculi seen. No perinephric stranding. BLADDER: Unremarkable. GASTROINTESTINAL TRACT: There is long segment wall thickening of the hepatic flexure, distal transverse, left and sigmoid colon. There is some stranding of the surrounding fat. There is slight prominence of the vasa recta. Findings are suggestive of colitis. May be involvement of the upper rectum as well. No evidence of obstruction, perforation or abscess. Mild diverticulosis of the colon. Small and large bowel is otherwise normal. The appendix is normal. ABDOMINAL WALL: Small umbilical hernia containing fat. LYMPH NODES: Small upper abdominal retroperitoneal lymph nodes. No enlarged lymph nodes VASCULAR: Atherosclerotic no aneurysm. PELVIC VISCERA: Uterus appears to have been removed. No pelvic mass. OSSEOUS STRUCTURES: Unremarkable. CT/CT abdomen pelvis w IV con IMPRESSION: Colitis similar to October 2023 exam. There is also mild diverticulosis of colon. Fleischner guidelines were followed.
--- NOTE | 2023-12-11 10:22 | ECG_ITS ---
Test Reason : tachycardia Blood Pressure : / mmHG Vent. Rate : 117 BPM Atrial Rate : 117 BPM P-R Int : 132 ms QRS Dur : 080 ms QT Int : 320 ms P-R-T Axes : 080 086 064 degrees QTc Int : 446 ms Sinus tachycardia Biatrial enlargement Abnormal ECG When compared with ECG of 01-NOV-2023 09:07, No significant change was found Referred By: Generic ED Physician Electronically Signed By:Joseph Salmon
[2023-12-11 10:38] LABS: MANUAL DIFF FLAG NO
[2023-12-11 10:46] LABS: Basophils Percent Auto 0.3 % (0-2); Eosinophils Percent Auto 0.2 % (0-4); Hematocrit 42.2 % (37.0-47.0); Hemoglobin 13.9 g/dl (12.0-16.0); Imm Gran Abs Auto 0.03 X10*3/uL (0.00-0.03); Imm Gran Pct Auto 0.2 % (0.0-0.4); Lymphocytes Absolute Auto 1.6 X10*3/uL (1.2-4.9); Lymphocytes Percent Auto 12.9 % (20-40); Mean Corpuscular HGB Conc 32.9 g/dl (31.0-35.0); Mean Corpuscular Hemoglobin 26.7 pg (27.0-33.0); Mean Corpuscular Volume 81.2 fL (80.0-98.0); Mean Platelet Volume 10.1 fL (9.4-12.3); Monocytes Absolute Auto 0.6 X10*3/uL (0.1-1.2); Monocytes Percent Auto 5.1 % (2-11); Neutrophils Absolute Auto 10.1 x10*3/uL (2.0-8.3); Neutrophils Percent Auto 81.3 % (45-73); Platelet Count 458 X10*3/uL (160-400); White Blood Count 12.5 X10*3/uL (4.8-10.8)
[2023-12-11 10:54] LABS: Alanine Aminotransferase 9 U/L (0-31); Albumin Level 3.9 g/dL (3.5-5.0); Alkaline Phosphatase 69 U/L (39-117); Anion Gap 15 (12-20); Aspartate Amino Transferase 15 U/L (5-31); Bilirubin Direct 0.1 mg/dL (0.0-0.5); Bilirubin Total 0.3 mg/dL (0.0-1.0); Blood Urea Nitrogen 14 mg/dL (9-16); Calcium 9.7 mg/dL (8.4-10.2); Carbon Dioxide 22 mmol/L (22-29); Chloride 107 mmol/L (96-108); Creatinine Clr Calc Pharmacy 48.9; Estimated Glomerular Filt Rate > 60; Glucose Random 130 mg/dL (60-115); Lipase 35 U/L (8-78); Potassium 4.1 mmol/L (3.3-5.1); Sodium 140 mmol/L (135-145); Total Protein 7.4 g/dL (6.5-8.0)
[2023-12-11 11:01] LABS: Troponin-I High Sensitivity 5.5 ng/L (<3.5-17.0)
[2023-12-11 13:08] LABS: Appearance Urine Clear; Color Urine Dark Yellow; Glucose Urine UA Negative (Negative); Leukocyte Esterase Urine Trace (Negative); Nitrite Urine Negative (Negative); UMIC TRIGGER UACC YES; Urine Blood Negative (Negative); Urine Ketones Trace mg/dL (Negative); Urine Protein Negative (Neg-Trace)
[2023-12-11 13:10] LABS: Bacteria Urine None Seen (None Seen); Hyaline Casts Urine 0-2 /LPF (0-2); RBC Urine 0-2 /HPF (0-2); Squamous Epithelial Cell Urine 0-2 /HPF (0-2); WBC Urine 0-5 /HPF (0-5)
--- NOTE | 2023-12-11 13:29 | ED.ABDPAIN ---
HPI - Abdominal Pain General Chief Complaint: Abdominal Pain Stated Complaint: Abd pain, vomiting, diarrhea Time Seen by Provider: 12/11/23 13:16 Source: patient Mode of arrival: ambulatory Limitations: no limitations History of Present Illness HPI narrative: A 63-year-old female with pertinent history hyperlipidemia, COPD breast cancer, DM, Raynaud's disease, CAD, bipolar, fibromyalgia, rheumatoid arthritis, Crohn's disease patient presented to the emergency department complaining of left lower abdominal pain started about 02:00 this morning that woke her up from sleep pain is accompanied with constipation urge to have bowel movement of bright red blood from the rectum, symptoms is associated with nausea and vomiting, no fever, no chills. Related Data Home Medications Medication Instructions Recorded Confirmed albuterol sulfate 90 mcg/actuation 2 inh inhalation Q4H PRN Shortness 08/23/23 11/22/23 aerosol inhaler Of Breath Or Wheezing pantoprazole 40 mg tablet,delayed 40 mg PO DAILY 09/27/23 11/22/23 release codeine 10 mg-guaifenesin 100 mg/5 10 ml PO Q8-12H PRN allergy 11/01/23 11/22/23 mL oral liquid symptoms/cough fluticasone fur. 100 mcg-umeclid 1 inh inhalation DAILY 11/01/23 11/22/23 62.5 mcg-vilant 25 mcg inhalat.powder (Trelegy Ellipta) Previous Rx's Medication Instructions Recorded lancets 28 gauge (FreeStyle #100 ea 06/07/22 Lancets) budesonide 0.5 mg/2 mL suspension 0.25 mg inhalation BID ASTHMA/COPD 01/04/23 for nebulization 30 days #60 mL walker #1 ea 02/08/23 letrozole 2.5 mg tablet 2.5 mg PO DAILY #90 tabs 02/12/23 aspirin 81 mg tablet,delayed 81 mg PO DAILY 90 days #90 tabs 06/30/23 release famotidine 20 mg tablet 20 mg PO BEDTIME 90 days #90 tabs 08/09/23 levalbuterol tartrate 45 2 puff inhalation Q4-6H PRN 08/20/23 mcg/actuation aerosol inhaler shortness of breath 30 days #15 grams trazodone 100 mg tablet 100 mg PO BEDTIME 90 days #90 tabs 11/10/23 ipratropium bromide 0.02 % 2.5 ml inhalation Q6H PRN 10/22/23 solution for inhalation shortness of breath or wheezing #150 mL dulaglutide 1.5 mg/0.5 mL 1.5 mg (0.5 mL) subcut TH@0900 #6 10/28/23 subcutaneous pen injector mL (Trulicity) mesalamine 1.2 gram tablet,delayed 2.4 g (2 x 1.2 gram) PO DAILY #180 11/12/23 release tabs pregabalin 200 mg capsule (Lyrica) 200 mg PO BID #60 caps 11/13/23 plecanatide 3 mg tablet (Trulance) 3 mg PO DAILY 30 days #30 tabs 11/22/23 sennosides 8.6 mg-docusate sodium 2 tab-cap (2 x 8.6-50 mg) PO 11/22/23 50 mg tablet (Senna with Docusate BEDTIME 60 days #120 tabs Sodium) blood sugar diagnostic (FreeStyle #100 ea 11/27/23 Lite Strips) duloxetine 30 mg capsule,delayed 30 mg PO DAILY #7 caps 11/27/23 release duloxetine 60 mg capsule,delayed 60 mg PO DAILY #30 caps 11/27/23 release pen needle, diabetic 31 gauge x #200 ea 11/27/2304/02 (Comfort EZ Pen [place]) food supplemt, lactose-reduced See Rx Instructions PO BID #14,220 11/29/23 0.06 gram-1.5 kcal/mL oral liquid mL Allergies Allergy/AdvReac Type Severity Reaction Status Date / Time dog dander [DOGS] Allergy Intermediate Respiratory Verified 12/11/23 10:20 distress shellfish derived Allergy Intermediate Hives Verified 12/11/23 10:20 methylprednisolone Allergy Rash Verified 12/11/23 10:20 etanercept [From Enbrel] AdvReac Intermediate Facial Verified 12/11/23 10:20 Swelling ibuprofen [Ibuprofen] AdvReac Intermediate STOMACH Verified 12/11/23 10:20 UPSET, abdominal pain, nausea and vomiting metformin AdvReac Intermediate Diarrhea Verified 12/11/23 10:20 metronidazole [From FLAGYL] AdvReac Intermediate Diarrhea Verified 12/11/23 10:20 prednisone AdvReac Intermediate hallucinations, Verified 12/11/23 10:20 higher than 20 Review of Systems Review of Systems All other systems are reviewed and are negative Constitutional: Reports as per HPI and Reports no additional constitutional complaints Eyes: Reports as per HPI and Reports no additional eye complaints Reports system reviewed and no additional complaints, except as documented Cardiovascular: Reports as per HPI and Reports no additional cardiovascular complaints Respiratory: Reports as per HPI and Reports no additional respiratory complaints Gastrointestinal: Reports as per HPI and Reports no additional gastrointestinal complaints Genitourinary: Reports no additional female genitourinary complaints Musculoskeletal: Reports no additional musculoskeletal complaints Skin/Breast: Reports system reviewed and no additional complaints, except as docu Psychiatric: Reports no additional psychiatric complaints Endocrine: Reports no additional endocrine complaints Hematologic/Lymphatic: Reports no additional hematologic/lymphatic complaints Allergic/Immunologic: Reports no additional allergic/immunologic complaints Reports system reviewed and no additional complaints, except as documented and Reports Abnormal speech present [facility] Past Medical History Medical History Acute respiratory distress Hospital discharge follow-up Tendonitis of ankle or foot Colitis Cough Anxiety CAD (coronary artery disease) HLD (hyperlipidemia) HTN (hypertension) T2DM (type 2 diabetes mellitus) COPD exacerbation Hyperkalemia Atherosclerotic cardiovascular disease GERD (gastroesophageal reflux disease) CVA (cerebral vascular accident) Breast pain, right Rash Bloody diarrhea PAD (peripheral artery disease) Hyperlipidemia LDL goal <100 COPD (chronic obstructive pulmonary disease) Infiltrating ductal carcinoma of left breast, stage 2 Insomnia Dyslipidemia Bipolar 1 disorder, depressed Cough Restrictive airway disease Hypothyroid IDDM (insulin dependent diabetes mellitus) Vitamin D deficiency Osteoporosis Hyperparathyroidism Thyroid nodule Depression Fibromyalgia Seropositive rheumatoid arthritis Reactive airways dysfunction syndrome Allergic rhinitis Irritable bowel Anxiety Bronchial asthma Diabetes type 2, uncontrolled Hypertension Surgical History Hx of sigmoidoscopy History of bronchoscopy Hx of endoscopy H/O cardiac catheterization History of lumpectomy of left breast History of pubovaginal sling History of esophagogastroduodenoscopy (EGD) History of tubal ligation History of colonoscopy History of bunionectomy of both great toes H/O: hysterectomy Family History Family History Mother Diabetes HTN (hypertension) Uterus cancer Malignant tumor of head Breast cancer Father Diabetes HTN (hypertension) CVD (cardiovascular disease) Heart problem Maternal Aunt Breast cancer Brother Myocardial infarction S/P CABG x 4 Family/Other FH: mental illness Family/Other Lung cancer Other Mental health disorder Social History Social History Household Members: Family Household Members Other:: sister Housing: Homeless Are you a primary manager progressive care to a significant other at home: No Do you presently have visiting nurse or other home services: Yes ([facility]) Unable to assess alcohol history related to: Unknown Alcohol intake: never Patient Tobacco Use Status: Current everyday Tobacco user Tobacco use type: Cigarette Cigarette Packs Per Day: 0.5 Cigarettes Per Day: 3 Years Smoked: 48 Smoked in Last 30 Days: Yes e-Cigarette/Vaping Use: Never Used Second Hand Smoke Exposure: No Use of substances other than those prescribed or required for medical reasons: No Substance Use Type: Marijuana Advance Directives: Yes Advance Directives on File: Yes Advance Directives Date on File: 12/22/21 Patient : No service: No Current occupational status: disabled Current occupation: rt handed Cognitive needs: No Hearing needs: No Vision needs: Yes Physical Exam ED Vital Signs: Vital Signs - 24 hr 12/11/23 10:17 12/11/23 12:00 12/11/23 14:00 Temperature 97.7 F 98.1 F 98.3 F Pulse Rate 139 H 107 H 96 Respiratory Rate 18 18 17 Blood Pressure 133/84 117/72 127/69 Pulse Oximetry 97 97 98 Oxygen Delivery Method Room Air Room Air Room Air 12/11/23 14:19 12/11/23 15:33 12/11/23 16:22 Temperature 98.1 F 97.9 F Pulse Rate 87 95 96 Respiratory Rate 18 15 13 Blood Pressure 119/77 89/48 L Pulse Oximetry 98 97 Oxygen Delivery Method Room Air Room Air 12/11/23 16:36 Temperature Pulse Rate 95 Respiratory Rate 18 Blood Pressure 96/52 L Pulse Oximetry 99 Oxygen Delivery Method Room Air BMI result Body Mass Index 21.1 Vital signs have been reviewed and appear to be correct. Blood pressure elevated. Heart rate elevated. Respiratory rate normal. Temperature normal. Oxygen saturation normal. Appearance: Alert. Oriented X3. No acute distress. Head: Normal external exam. Normocephalic. Atraumatic. No Raya signs noted. No raccoon eyes noted Eyes: PERRLA. EOMI. Conjunctiva and sclera normal. Eyelids normal. ENT: TM's Normal. Pharynx normal. Uvula midline. Moist mucous membranes. No trismus noted. No drooling noted. No muffled voice noted. Neck: Normal inspection. Neck supple. FROM. No adenopathy. Thyroid Normal. No meningeal signs. No neck mass noted. CVS: Normal heart rate and rhythm. Heart sound normal. No murmurs noted. Pulses normal throughout. Respiratory: No respiratory distress. Painless inspiration. Breath sounds normal. Diffuse mild expiratory wheezing with prolonged expiration, Chest nontender. No accessory muscle usage noted or decreased air movement noted. Abdomen: Left lower quadrant tenderness, voluntarily guarding, with rebound tenderness. Bowel sounds normal in all 4 quadrants. No distention noted. No organomegaly noted. No visible injury noted. Rectal exam: No external or internal hemorrhoids, bright red mucous stool in the vault. Back: No CVA tenderness. Full range of motion noted. Skin: Skin warm and dry. Normal skin color. Normal skin turgor. No rashes/lesions/lacerations noted. Extremities: No lower extremity edema. Extremities exhibit normal range of motion. Extremities nontender. Neuro: Oriented X 3. Cranial nerve exam: II-XII are grossly intact No motor deficit. No sensory deficit. Reflexes normal. Medical Decision Making Medical Decision Making MDM Narrative: 1. Abdominal pain and colitis patient meet criteria for for SIRS, then patient had 1 episode of hypotension which improved after given IV fluids , normal lactic acid. 2. Patient had acute asthma exacerbation emergency department patient was given bronchodilator with improvement of patient's symptoms. Differential Diagnosis Differential Diagnoses: The differential diagnosis associated with the presentation includes (Asthma exacerbation, pneumonia, diverticulitis, colitis, perforated viscus, sepsis, electrolyte abnormality, severe anemia.) Admission/Observation Consideration of admission/observation: Escalation of care including admission/observation considered Consult Healthcare Provider Management of the patient was discussed with: Hospitalist (Dr. Hollis) Lab Data MDM Lab Attestation statement: I reviewed the patient's lab results. 12/11/23 10:35 12/11/23 10:35 Labs: Lab Results 12/11/23 12/11/23 12/11/23 Range/Units 10:35 13:01 13:49 WBC 12.5 H (4.8-10.8) X10*3/uL RBC 5.20 D (4.20-5.50) X10*6/uL Hgb 13.9 D (12.0-16.0) g/dl Hct 42.2 D (37.0-47.0) % MCV 81.2 (80.0-98.0) fL MCH 26.7 L (27.0-33.0) pg MCHC 32.9 (31.0-35.0) g/dl RDW 14.0 (11.0-16.0) % Plt Count 458 H D (160-400) X10*3/uL MPV 10.1 (9.4-12.3) fL Immature Gran % (Auto) 0.2 (0.0-0.4) % Neut % (Auto) 81.3 H (45-73) % Lymph % (Auto) 12.9 L (20-40) % Alfalfa % (Auto) 5.1 (2-11) % Eos % (Auto) 0.2 (0-4) % Baso % (Auto) 0.3 (0-2) % Lymph # (Auto) 1.6 (1.2-4.9) X10*3/uL Alfalfa # (Auto) 0.6 (0.1-1.2) X10*3/uL Eos # (Auto) 0.0 (0.0-0.4) X10*3/uL Baso # (Auto) 0.0 (0.0-0.2) X10*3/uL Abs Immat Gran (auto) 0.03 (0.00-0.03) X10*3/uL Absolute Neuts (auto) 10.1 H (2.0-8.3) x10*3/uL Absolute Nucleated RBC 0.000 (0.0-0.012) X10*3/uL Nucleated RBC % (auto) 0.0 (0.0-0.2) /100WBC Sodium 140 (135-145) mmol/L Potassium 4.1 (3.3-5.1) mmol/L Chloride 107 (96-108) mmol/L Carbon Dioxide 22 (22-29) mmol/L Anion Gap 15 (12-20) BUN 14 (9-16) mg/dL Creatinine 0.78 (0.5-1.4) mg/dL Estim Creat Clear Calc 48.9 Estimated GFR > 60 Random Glucose 130 H (60-115) mg/dL Lactic Acid 1.6 (0.5-2.0) mmol/L Calcium 9.7 D (8.4-10.2) mg/dL Total Bilirubin 0.3 (0.0-1.0) mg/dL Direct Bilirubin 0.1 (0.0-0.5) mg/dL AST 15 (5-31) U/L ALT 9 (0-31) U/L Alkaline Phosphatase 69 (39-117) U/L Troponin I High Sens 5.5 D (<3.5-17.0) ng/L Total Protein 7.4 (6.5-8.0) g/dL Albumin 3.9 (3.5-5.0) g/dL Lipase 35 (8-78) U/L Urine Color Dark Yellow Urine Appearance Clear Urine pH 7.0 (5.0-9.0) Ur Specific [place] 1.020 (1.005-1.025) Urine Protein Negative (Neg-Trace) mg/dL Urine Glucose (UA) Negative (Negative) mg/dL Urine Ketones Trace (Negative) mg/dL Urine Blood Negative (Negative) Urine Nitrite Negative (Negative) Ur Leukocyte Esterase Trace H (Negative) Urine RBC 0-2 (0-2) /HPF Urine WBC 0-5 (0-5) /HPF Ur Squamous Epith Cells 0-2 (0-2) /HPF Urine Bacteria None Seen (None Seen) Hyaline Casts 0-2 (0-2) /LPF Stool Occult Blood POSITIVE (NEGATIVE) Independent Interpretation I performed an independent interpretation of an: CT Scan (Abdomen and pelvis:Colitis similar to October 2023 exam. There is also mild diverticulosis of colon. ) Radiology Impression Discussion of test interpretation with radiology: I have reviewed the radiologist's reading. Chronic Conditions Patient?s care impacted by: Other (Colitis and asthma.) Medications Administered Generic Name Dose Route Start Last Admin Trade Name Freq PRN Reason Stop Dose Admin Sodium Chloride 1,000 mls @ 999 mls/hr 12/11/23 16:39 12/11/23 16:43 Ns IV 12/11/23 17:39 999 mls/hr .Q1H1M ONE Administration Discontinued Medications Generic Name Dose Route Start Last Admin Trade Name Freq PRN Reason Stop Dose Admin Albuterol Sulfate 2.5 mg 12/11/23 14:03 12/11/23 14:17 Albuterol Sulfate (0.083%) 2.5 Mg/3 Ml Vial.Neb INHALE 12/11/23 14:04 2.5 mg ONCE ONE Administration Albuterol/Ipratropium 3 ml 12/11/23 14:03 12/11/23 14:17 Albuterol/Iprat 2.5/0.5mg 3 Ml Ampul.Neb INHALE 12/11/23 14:04 3 ml ONCE ONE Administration Sodium Chloride 1,000 mls @ 999 mls/hr 12/11/23 13:24 12/11/23 16:10 Ns IV 12/11/23 14:24 Infused .Q1H1M ONE Infusion Piperacillin Sod/Tazobactam 50 mls @ 100 mls/hr 12/11/23 13:24 12/11/23 16:10 Sod 3.375 gm/ Sodium Chloride IV 12/11/23 13:53 Infused ONCE ONE Infusion Iohexol 85 ml 12/11/23 14:56 12/11/23 14:56 Iohexol 350 Mg/Ml 75 Ml Infus..Btl IV 12/11/23 14:57 85 ml ONCE ONE Administration Morphine Sulfate 1 mg 12/11/23 13:24 12/11/23 13:58 Morphine Sulfate 2 Mg/Ml Cartridge IVPUSH 12/11/23 13:25 1 mg ONCE ONE Administration Protocol Morphine Sulfate 1 mg 12/11/23 16:39 12/11/23 16:48 Morphine Sulfate 2 Mg/Ml Cartridge IVPUSH 12/11/23 16:40 1 mg ONCE ONE Administration Protocol Ondansetron HCl 4 mg 12/11/23 13:24 12/11/23 13:57 Ondansetron Hcl 4 Mg/2 Ml Vial IVPUSH 12/11/23 13:25 4 mg ONCE ONE Administration Critical Care Time Critical Care Time Critical Care Time: Yes Total Critical Care Time: 60 Attestation: I spent 60 minutes providing critical care service to the patient, this including time spent at the bedside to evaluate the patient, reassess the patient, monitoring vital signs, review labs, and radiographic studies, counseling the patient/family, discussing the case with consultants, disposition the patient. Discharge Plan Discharge Clinical Impression: Colitis, Sepsis, Acute asthma exacerbation Patient Disposition: Admitted As Inpatient
[2023-12-11] MEDS: 0.9 % Sodium Chloride 1,000 ML 999 ML IV ×2 (13:52→16:43)
[2023-12-11] MEDS: ondansetron HCL 4 MG/2 ML VIAL IVPUSH (13:57)
[2023-12-11] MEDS: Morphine Sulfate 2 MG/ML CARTRIDGE 1 MG IVPUSH ×2 (13:58→16:48)
[2023-12-11 14:01] LABS: OBS Int Ctl Valid YES; OBS1 POSITIVE (NEGATIVE)
--- NOTE | 2023-12-11 14:02 | ECG_ITS ---
Test Reason : CHEST PAIN Blood Pressure : / mmHG Vent. Rate : 095 BPM Atrial Rate : 095 BPM P-R Int : 134 ms QRS Dur : 084 ms QT Int : 346 ms P-R-T Axes : 075 081 067 degrees QTc Int : 434 ms Normal sinus rhythm Normal ECG When compared with ECG of 11-DEC-2023 10:25, No significant change was found Referred By: Billy Alfred Electronically Signed By:Joseph Salmon
[2023-12-11 14:08] LABS: Lactic Acid 1.6 mmol/L (0.5-2.0)
[2023-12-11] MEDS: Albuterol/Iprat 2.5/0.5MG 3 ML AMPUL.NEB INHALE (14:17)
[2023-12-11] MEDS: Albuterol Sulfate (0.083%) 2.5 MG/3 ML VIAL.NEB INHALE (14:17)
[2023-12-11] MEDS: iohexoL 350 MG/ML 75 ML INFUS..BTL 85 ML IV (14:56)
[2023-12-11] MEDS: Piperacillin Sodium/Tazobactam 3.375 GM in 0.9 % Sodium Chloride 50 ML IV ×2 (15:06→22:13)
[2023-12-11 17:34] LABS: Influenza A PCR NEGATIVE (Negative); Influenza B PCR NEGATIVE (Negative); Resp Syncy Virus RNA Qual PCR NEGATIVE (Negative); SARS COV2 PCR INHOUSE NEGATIVE (Negative)
--- NOTE | 2023-12-11 18:19 | PM.IMHP ---
History of Present Illness Date of Service: 12/11/23 Chief Complaint: abd pain 63-year-old female with past medical history significant for hyperlipidemia COPD breast cancer diabetes Raynaud's along with rheumatoid arthritis and Crohn's presents to the emergency room with left lower quadrant pain that started approximately 10 hours ago. She describes the pain as sharp without radiation. She says she is had multiple bowel movements that are bloody; this does not change her pain. She states this presentation is similar to last episode of flare. In the emergency room she was given Zosyn and IV fluid bolus with cultures being drawn along with lactate of 1.6. Review of Systems Review of Systems: Denies chest pain Denies shortness of breath Denies nausea vomiting admits to loose stools that are bloody Denies fever chills PMFSH Medical History Acute respiratory distress Hospital discharge follow-up Tendonitis of ankle or foot Colitis Cough Anxiety CAD (coronary artery disease) HLD (hyperlipidemia) HTN (hypertension) T2DM (type 2 diabetes mellitus) COPD exacerbation Hyperkalemia Atherosclerotic cardiovascular disease GERD (gastroesophageal reflux disease) CVA (cerebral vascular accident) Breast pain, right Rash Bloody diarrhea PAD (peripheral artery disease) Hyperlipidemia LDL goal <100 COPD (chronic obstructive pulmonary disease) Infiltrating ductal carcinoma of left breast, stage 2 Insomnia Dyslipidemia Bipolar 1 disorder, depressed Cough Restrictive airway disease Hypothyroid IDDM (insulin dependent diabetes mellitus) Vitamin D deficiency Osteoporosis Hyperparathyroidism Thyroid nodule Depression Fibromyalgia Seropositive rheumatoid arthritis Reactive airways dysfunction syndrome Allergic rhinitis Irritable bowel Anxiety Bronchial asthma Diabetes type 2, uncontrolled Hypertension Family History Mother Diabetes HTN (hypertension) Uterus cancer Malignant tumor of head Breast cancer Father Diabetes HTN (hypertension) CVD (cardiovascular disease) Heart problem Maternal Aunt Breast cancer Brother Myocardial infarction S/P CABG x 4 Family/Other FH: mental illness Family/Other Lung cancer Other Mental health disorder Surgical History Hx of sigmoidoscopy History of bronchoscopy Hx of endoscopy H/O cardiac catheterization History of lumpectomy of left breast History of pubovaginal sling History of esophagogastroduodenoscopy (EGD) History of tubal ligation History of colonoscopy History of bunionectomy of both great toes H/O: hysterectomy Social History Household Members: Family Household Members Other:: sister Housing: Homeless Are you a primary senior care assistant to a significant other at home: No Do you presently have visiting nurse or other home services: Yes (SOFTWARE REQUIREMENTS ENGINEER) Unable to assess alcohol history related to: Unknown Alcohol intake: never Patient Tobacco Use Status: Current everyday Tobacco user Tobacco use type: Cigarette Cigarette Packs Per Day: 0.5 Cigarettes Per Day: 3 Years Smoked: 48 Smoked in Last 30 Days: Yes e-Cigarette/Vaping Use: Never Used Second Hand Smoke Exposure: No Use of substances other than those prescribed or required for medical reasons: No Substance Use Type: Marijuana Advance Directives: Yes Advance Directives on File: Yes Advance Directives Date on File: 12/22/21 Patient : No service: No Current occupational status: disabled Current occupation: rt handed Cognitive needs: No Hearing needs: No Vision needs: Yes Meds Allergies Allergy/AdvReac Type Severity Reaction Status Date / Time dog dander [DOGS] Allergy Intermediate Respiratory Verified 12/11/23 10:20 distress shellfish derived Allergy Intermediate Hives Verified 12/11/23 10:20 methylprednisolone Allergy Rash Verified 12/11/23 10:20 etanercept [From Enbrel] AdvReac Intermediate Facial Verified 12/11/23 10:20 Swelling ibuprofen [Ibuprofen] AdvReac Intermediate STOMACH Verified 12/11/23 10:20 UPSET, abdominal pain, nausea and vomiting metformin AdvReac Intermediate Diarrhea Verified 12/11/23 10:20 metronidazole [From FLAGYL] AdvReac Intermediate Diarrhea Verified 12/11/23 10:20 prednisone AdvReac Intermediate hallucinations, Verified 12/11/23 10:20 higher than 20 Active Medications: Current Medications Acetaminophen (Acetaminophen 325 Mg Tablet) 650 mg PO Q6H PRN PRN Reason: Pain, Mild (Pain Scale 1-3) Albuterol/Ipratropium (Albuterol/Iprat 2.5/0.5mg 3 Ml Ampul.Neb) 3 ml INHALE Q4H PRN PRN Reason: wheezing Dextrose (Dextrose 50 % 25 Gm/50 Ml Syringe) 25 gm IVPUSH Q15M PRN; Protocol PRN Reason: per Hypoglycemia Standing Ord. Glucose (Glucose Gel 15 Gm Gel..Gram.) 15 gm PO Q15M PRN; Protocol PRN Reason: per Hypoglycemia Standing Ord. Insulin Human Lispro (Insulin Lispro 100 Unit/Ml 3 Ml Vial) 0 [facility]; Protocol Morphine Sulfate (Morphine Sulfate 4 Mg/Ml Cartridge) 4 mg IVPUSH Q4H PRN; Protocol PRN Reason: Pain, Severe (Pain Scale 7-10) Ondansetron HCl (Ondansetron Hcl 4 Mg/2 Ml Vial) 4 mg IVPUSH Q8H PRN PRN Reason: Nausea and Vomiting Oxycodone HCl (Oxycodone Hcl Immed Release 5 Mg Tablet) 10 mg PO Q4H PRN PRN Reason: Pain, Moderate(Pain Scale 4-6) Sodium Chloride (0.9 % Sodium Chloride Flush 3 Ml Syringe) 3 ml IVFLUSH [facility] Home Medications Medication Instructions Recorded Confirmed Last Taken Type albuterol sulfate 90 mcg/actuation 2 inh inhalation Q4H PRN Shortness 08/23/23 11/22/23 09/26/23 History aerosol inhaler Of Breath Or Wheezing pantoprazole 40 mg tablet,delayed 40 mg PO DAILY 09/27/23 11/22/23 09/26/23 History release codeine 10 mg-guaifenesin 100 mg/5 10 ml PO Q8-12H PRN allergy 11/01/23 11/22/23 Unknown History mL oral liquid symptoms/cough fluticasone fur. 100 mcg-umeclid 1 inh inhalation DAILY 11/01/23 11/22/23 Unknown History 62.5 mcg-vilant 25 mcg inhalat.powder (Trelegy Ellipta) Physical Exam Vital Signs and Narrative: Vital Signs: Last Vital Signs Temp 97.9 F 12/11/23 18:11 Pulse 78 12/11/23 18:11 Resp 16 12/11/23 18:11 BP 121/82 12/11/23 18:11 Pulse Ox 97 12/11/23 18:11 O2 Del Method Room Air 12/11/23 18:11 BMI result Body Mass Index 21.1 Const: Other: Awake alert no acute distress Resp: Other: Clear but diminished throughout rales rhonchi or wheezes Cardio: Other: No S4; positive S1-S2; no S3 murmurs rubs or gallops GI: Other: Soft diffusely tender across lower abdomen. Bowel sounds are present. No acute peritoneal signs noted Neuro: Other: Cranial nerves 2-12 grossly intact as tested. Motor is 5/5 all extremities. Sensation is intact. Cognition appropriate Extrem: Other: No edema bilaterally Results Labs 12/11/23 10:35 12/11/23 10:35 Labs: Laboratory Results - last 24 hr 12/11/23 12/11/23 12/11/23 10:35 13:01 13:49 MCV 81.2 MCH 26.7 L MCHC 32.9 RDW 14.0 Plt Count 458 H D MPV 10.1 Immature Gran % (Auto) 0.2 Neut % (Auto) 81.3 H Lymph % (Auto) 12.9 L [place] % (Auto) 5.1 Eos % (Auto) 0.2 Baso % (Auto) 0.3 Lymph # (Auto) 1.6 [place] # (Auto) 0.6 Eos # (Auto) 0.0 Baso # (Auto) 0.0 Abs Immat Gran (auto) 0.03 Absolute Neuts (auto) 10.1 H Absolute Nucleated RBC 0.000 Nucleated RBC % (auto) 0.0 Anion Gap 15 Estim Creat Clear Calc 48.9 Estimated GFR > 60 Random Glucose 130 H Lactic Acid 1.6 Calcium 9.7 D Total Bilirubin 0.3 Direct Bilirubin 0.1 AST 15 ALT 9 Alkaline Phosphatase 69 Total Protein 7.4 Albumin 3.9 Lipase 35 Urine Color Dark Yellow Urine Appearance Clear Urine pH 7.0 Ur Specific [place] 1.020 Urine Protein Negative Urine Glucose (UA) Negative Urine Ketones Trace Urine Blood Negative Urine Nitrite Negative Ur Leukocyte Esterase Trace H Urine RBC 0-2 Urine WBC 0-5 Ur Squamous Epith Cells 0-2 Urine Bacteria None Seen Hyaline Casts 0-2 Stool Occult Blood POSITIVE Influenza Type A (PCR) Influenza Type B (PCR) RSV RNA Qual (PCR) SARS-CoV-2 RNA (RT-PCR) 12/11/23 16:49 MCV MCH MCHC RDW Plt Count MPV Immature Gran % (Auto) Neut % (Auto) Lymph % (Auto) [place] % (Auto) Eos % (Auto) Baso % (Auto) Lymph # (Auto) [place] # (Auto) Eos # (Auto) Baso # (Auto) Abs Immat Gran (auto) Absolute Neuts (auto) Absolute Nucleated RBC Nucleated RBC % (auto) Anion Gap Estim Creat Clear Calc Estimated GFR Random Glucose Lactic Acid Calcium Total Bilirubin Direct Bilirubin AST ALT Alkaline Phosphatase Total Protein Albumin Lipase Urine Color Urine Appearance Urine pH Ur Specific [place] Urine Protein Urine Glucose (UA) Urine Ketones Urine Blood Urine Nitrite Ur Leukocyte Esterase Urine RBC Urine WBC Ur Squamous Epith Cells Urine Bacteria Hyaline Casts Stool Occult Blood Influenza Type A (PCR) NEGATIVE Influenza Type B (PCR) NEGATIVE RSV RNA Qual (PCR) NEGATIVE SARS-CoV-2 RNA (RT-PCR) NEGATIVE Imaging Radiologist's Impressions: Impressions Abdomen/Pelvis CT 12/11/23 14:59 IMPRESSION: Colitis similar to October 2023 exam. There is also mild diverticulosis of colon. Fleischner guidelines were followed. Assessment and Plan (1) Colitis: Status: Acute (2) T2DM (type 2 diabetes mellitus): Qualifiers: Diabetes mellitus nursing home insulin use: with nursing home use Diabetes mellitus complication status: with hyperglycemia Qualified Code(s): E11.65 - Type 2 diabetes mellitus with hyperglycemia; Z79.4 - long term acute care registered nurse (current) use of insulin Status: Acute Plan 63-year-old female with known history of Crohn's disease presents with lower abdominal pain and bloody diarrhea consistent with flare. Presentation similar to past episodes. Blood cultures drawn IV volume replacement and antibiotics given. 1. Colitis(meets sepsis critera) -IV fluids given (30 mL/kilogram bolus) -Zosyn 3.3 7 5 IV q.6 hours -IV pantoprazole...NPO -follow-up blood cultures -GI consult in a.m. 2.DM II -random glucose acceptable -given NPO status will cover with lispro correctional scale -adjust as indicated once oral status resumes 3. COPD -not a factor this admission -DuoNebs q.4 hours p.r.n. shortness of breath Full code Pneumatics Requires at least 2 midnights of inpatient stay going forward for IV antibiotics to treat acute colitis. She will also receive specialist consultation. This can not be achieved a lesser acute setting Quality Stroke Does the patient have a stroke diagnosis?: No VTE Prior VTE?: No VTE Risk Level:: Medical - moderate - high VTE Device Contraindication: N/A - Device Ordered VTE Drug Contraindication: Treatment Not Indicated
--- NOTE | 2023-12-11 19:48 | MHC.EDTECH ---
Pt was assisted with the commode and the pt was cleaned repositioned into bed.
--- NOTE | 2023-12-11 19:57 | PHA.MEDREC ---
Pharmacy Consult ? Medication Reconciliation Pharmacy has completed the medication reconciliation. Patient confirmed medications through list brought from home. Patient adamant she is taking only Trelegy. Also not taking Duloxitine. States she just got off an antidepressant. Patient not taking Trulance, states insurance is not covering it. Lubiprostone hasnt been filled since March but says she is still taking it. Irena Sierra CPhT
[2023-12-11 21:34] LABS: Glucose, Whole Blood 84 mg/dL (60-115)
--- NOTE | 2023-12-11 22:09 | PC.NURSE ---
Patient alert and oriented x 3. speaks ethiopian and Belarusian. Patient c/o abdominal pain 10/10 medicating with oxycodone 10mg po before she goes up. and giving her antibiotics. Ct scan + colitis some diverticulosis. 22g in left hand. hard stick.
[2023-12-11] MEDS: oxyCODONE HCl Immed Release 5 MG TABLET 10 MG PO (22:13)
[2023-12-11] MEDS: 0.9 % Sodium Chloride Flush 3 ML SYRINGE IVFLUSH (22:46)
[2023-12-11] MEDS: diphenhydrAMINE HCL 25 MG CAPSULE 50 MG PO (22:55)
[2023-12-12] VITALS (7 sets, daily range): BP systolic 96–162; BP diastolic 53–74; PULSE 70–94; RESP 16–18; TEMP 36.1–37.1; O2SAT 95–99
[2023-12-12] MEDS: Morphine Sulfate 4 MG/ML CARTRIDGE IVPUSH ×4 (03:25→16:07)
[2023-12-12] MEDS: Piperacillin Sodium/Tazobactam 3.375 GM in 0.9 % Sodium Chloride 50 ML IV ×4 (03:28→21:03)
[2023-12-12 05:33] LABS: MANUAL DIFF FLAG NO
[2023-12-12 05:39] LABS: Basophils Percent Auto 0.5 % (0-2); Eosinophils Absolute Auto 0.1 X10*3/uL (0.0-0.4); Eosinophils Percent Auto 1.5 % (0-4); Hematocrit 33.3 % (37.0-47.0); Hemoglobin 10.5 g/dl (12.0-16.0); Imm Gran Abs Auto 0.02 X10*3/uL (0.00-0.03); Imm Gran Pct Auto 0.3 % (0.0-0.4); Lymphocytes Absolute Auto 2.5 X10*3/uL (1.2-4.9); Mean Corpuscular HGB Conc 31.5 g/dl (31.0-35.0); Mean Corpuscular Hemoglobin 26.4 pg (27.0-33.0); Mean Corpuscular Volume 83.9 fL (80.0-98.0); Mean Platelet Volume 10.2 fL (9.4-12.3); Monocytes Absolute Auto 0.5 X10*3/uL (0.1-1.2); Monocytes Percent Auto 7.4 % (2-11); Neutrophils Absolute Auto 2.9 x10*3/uL (2.0-8.3); Neutrophils Percent Auto 48.3 % (45-73); Platelet Count 366 X10*3/uL (160-400); Red Blood Count 3.97 X10*6/uL (4.20-5.50); Red Cell Distribution Width 13.8 % (11.0-16.0); White Blood Count 6.1 X10*3/uL (4.8-10.8)
[2023-12-12 05:56] LABS: Alanine Aminotransferase 7 U/L (0-31); Albumin Level 3.2 g/dL (3.5-5.0); Alkaline Phosphatase 50 U/L (39-117); Anion Gap 13 (12-20); Aspartate Amino Transferase 14 U/L (5-31); Bilirubin Total 0.3 mg/dL (0.0-1.0); Blood Urea Nitrogen 7 mg/dL (9-16); Calcium 8.3 mg/dL (8.4-10.2); Carbon Dioxide 24 mmol/L (22-29); Chloride 110 mmol/L (96-108); Creatinine Clr Calc Pharmacy 49.5; Estimated Glomerular Filt Rate > 60; Glucose Random 82 mg/dL (60-115); Potassium 4.1 mmol/L (3.3-5.1); Sodium 143 mmol/L (135-145); Total Protein 5.9 g/dL (6.5-8.0)
[2023-12-12 07:20] LABS: Glucose, Whole Blood 84 mg/dL (60-115)
[2023-12-12] MEDS: ondansetron HCL 4 MG/2 ML VIAL IVPUSH (07:29)
[2023-12-12] MEDS: 0.9 % Sodium Chloride Flush 3 ML SYRINGE IVFLUSH ×3 (08:00→21:04)
[2023-12-12 11:10] LABS: Glucose, Whole Blood 83 mg/dL (60-115)
--- NOTE | 2023-12-12 11:51 | PC.NURSE ---
Pharmacy called to complete med rec.
--- NOTE | 2023-12-12 12:48 | MHC.CM.PN ---
PT REPORTS SHE LIVES WITH HER SISTER, NEPHEW AND SON SHE REPORTS HER SISTER IS HER ENVIRONMENTAL WEB CRAWLER 17+ HOURS PER WEEK SHE USES A CANE AND WALKER PRN HCP ON FILE PCP: ARRON HOWARD IMM DELIVERED DCP: HOME, RESUME ENVIRONMENTAL WEB CRAWLER FAMILY TO TRANSPORT
--- NOTE | 2023-12-12 13:10 | PC.NURSE ---
[facility] Nurse stated waiting for order for Enema's for patient prior to coming down. Awaiting orders and meds from pharmacy at this time.
--- NOTE | 2023-12-12 13:21 | PM.GICN ---
History of Present Illness Data of Consult Service Date: 12/12/23 Requesting physician: Mario Hollis Primary Care Provider: Adela Wasserman MD HPI Reason for consult: Colitis 63 YF with hyperlipidemia COPD breast cancer diabetes Raynaud's with rheumatoid arthritis and Crohn's seen at [facility] ED on 12/11/23 with left lower quadrant pain and bloody diarrhea. Pt is known to me from past GI clinic visits. Pt described the pain as sharp without radiation. She says she is had multiple bowel movements that are bloody; this does not change her pain. She stated she had similar symptoms prior to her previous admissions. Has COPD and asthma. Patient denies known family history of colon polyps or colon cancer In the emergency room she was given Zosyn and IV fluid bolus with cultures being drawn along with lactate of 1.6. Review of Systems Review of Systems: Denies chest pain Denies shortness of breath Denies nausea vomiting admits to loose stools that are bloody Denies fever chills PMFSH Past Medical History Medical History (Updated 12/27/23 @ 10:52 by VICK Olguin) half-way (current) use 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 T2DM (type 2 diabetes mellitus) Acute respiratory distress Hospital discharge follow-up Tendonitis of ankle or foot Colitis Cough Anxiety CAD (coronary artery disease) HLD (hyperlipidemia) HTN (hypertension) T2DM (type 2 diabetes mellitus) COPD exacerbation Hyperkalemia Atherosclerotic cardiovascular disease GERD (gastroesophageal reflux disease) CVA (cerebral vascular accident) Breast pain, right Rash Bloody diarrhea PAD (peripheral artery disease) Hyperlipidemia LDL goal <100 COPD (chronic obstructive pulmonary disease) Infiltrating ductal carcinoma of left breast, stage 2 Insomnia Dyslipidemia Bipolar 1 disorder, depressed Cough Restrictive airway disease Hypothyroid IDDM (insulin dependent diabetes mellitus) Vitamin D deficiency Osteoporosis Hyperparathyroidism Thyroid nodule Depression Fibromyalgia Seropositive rheumatoid arthritis Reactive airways dysfunction syndrome Allergic rhinitis Irritable bowel Anxiety Bronchial asthma Diabetes type 2, uncontrolled Hypertension Family History Family History Mother Diabetes HTN (hypertension) Uterus cancer Malignant tumor of head Breast cancer Father Diabetes HTN (hypertension) CVD (cardiovascular disease) Heart problem Maternal Aunt Breast cancer Brother Myocardial infarction S/P CABG x 4 Family/Other FH: mental illness Family/Other Lung cancer Other Mental health disorder Surgical History Surgical History Hx of sigmoidoscopy History of bronchoscopy Hx of endoscopy H/O cardiac catheterization History of lumpectomy of left breast History of pubovaginal sling History of esophagogastroduodenoscopy (EGD) History of tubal ligation History of colonoscopy History of bunionectomy of both great toes H/O: hysterectomy Social History Social History Household Members: Family Household Members Other:: sister Housing: House Are you a primary pharmacy customer care specialist to a significant other at home: No Do you presently have visiting nurse or other home services: Yes (sister is CASEWORK SUPERVISOR) Unable to assess alcohol history related to: Unknown Alcohol intake: never Patient Tobacco Use Status: Current everyday Tobacco user Tobacco use type: Cigarette Cigarette Packs Per Day: 0.5 Cigarettes Per Day: 2 Years Smoked: 48 e-Cigarette/Vaping Use: Never Used Second Hand Smoke Exposure: No Substance Use Type: Marijuana Advance Directives Date on File: 12/22/21 service: No Current occupational status: disabled Current occupation: rt handed Cognitive needs: No Hearing needs: No Vision needs: Yes Meds Allergies Allergy/AdvReac Type Severity Reaction Status Date / Time dog dander [DOGS] Allergy Intermediate Respiratory Verified 12/27/23 10:19 distress shellfish derived Allergy Intermediate Hives Verified 12/27/23 10:19 methylprednisolone Allergy Rash Verified 12/27/23 10:19 etanercept [From Enbrel] AdvReac Intermediate Facial Verified 12/27/23 10:19 Swelling ibuprofen [Ibuprofen] AdvReac Intermediate STOMACH Verified 12/27/23 10:19 UPSET, abdominal pain, nausea and vomiting metformin AdvReac Intermediate Diarrhea Verified 12/27/23 10:19 metronidazole [From FLAGYL] AdvReac Intermediate Diarrhea Verified 12/27/23 10:19 prednisone AdvReac Intermediate hallucinations, Verified 12/27/23 10:19 higher than 20 Active Medications: Current Medications Acetaminophen (Acetaminophen 325 Mg Tablet) 650 mg PO Q6H PRN PRN Reason: Pain, Mild (Pain Scale 1-3) Albuterol/Ipratropium (Albuterol/Iprat 2.5/0.5mg 3 Ml Ampul.Neb) 3 ml INHALE Q4H PRN PRN Reason: wheezing Dextrose (Dextrose 50 % 25 Gm/50 Ml Syringe) 25 gm IVPUSH Q15M PRN; Protocol PRN Reason: per Hypoglycemia Standing Ord. Glucose (Glucose Gel 15 Gm Gel..Gram.) 15 gm PO Q15M PRN; Protocol PRN Reason: per Hypoglycemia Standing Ord. Piperacillin Sod/Tazobactam (Sod 3.375 gm/ Sodium Chloride) 50 mls @ 100 mls/hr IV Q6H [facility] Last Infusion: 12/12/23 08:33 Dose: Infused Insulin Human Lispro (Insulin Lispro 100 Unit/Ml 3 Ml Vial) 0 unit SUBCUT QIDACHS [facility]; Protocol Last Admin: 12/12/23 11:31 Dose: Not Given Morphine Sulfate (Morphine Sulfate 4 Mg/Ml Cartridge) 4 mg IVPUSH Q4H PRN; Protocol PRN Reason: Pain, Severe (Pain Scale 7-10) Last Admin: 12/12/23 12:01 Dose: 4 mg Ondansetron HCl (Ondansetron Hcl 4 Mg/2 Ml Vial) 4 mg IVPUSH Q8H PRN PRN Reason: Nausea and Vomiting Last Admin: 12/12/23 07:29 Dose: 4 mg Oxycodone HCl (Oxycodone Hcl Immed Release 5 Mg Tablet) 10 mg PO Q4H PRN PRN Reason: Pain, Moderate(Pain Scale 4-6) Last Admin: 12/11/23 22:13 Dose: 10 mg Sodium Biphosphate/Sodium Phosphate (Sodium Phosphate,[place]-Dibasic 133 Ml Enema) 133 ml [place] ONCE PRN PRN Reason: Pre-Op Surgical Prep Sodium Chloride (0.9 % Sodium Chloride Flush 3 Ml Syringe) 3 ml IVFLUSH [facility] Last Admin: 12/12/23 08:00 Dose: 3 ml Home Medications Medication Instructions Recorded Confirmed Last Taken Type albuterol sulfate 90 mcg/actuation 2 inh inhalation Q4H PRN Shortness 08/23/23 12/16/23 09/26/23 History aerosol inhaler Of Breath Or Wheezing pantoprazole 40 mg tablet,delayed 40 mg PO BID 09/27/23 12/16/23 12/10/23 History release codeine 10 mg-guaifenesin 100 mg/5 10 ml PO Q8-12H PRN allergy 11/01/23 12/16/23 Unknown History mL oral liquid symptoms/cough fluticasone fur. 100 mcg-umeclid 1 inh inhalation DAILY 11/01/23 12/16/23 12/10/23 History 62.5 mcg-vilant 25 mcg inhalat.powder (Trelegy Ellipta) lubiprostone 8 mcg capsule 8 mcg PO BID 12/11/23 12/16/23 12/10/23 History (Amitiza) Physical Exam Vital Signs: Vital Signs: Last Vital Signs Temp 98.5 F 12/12/23 07:04 Pulse 74 12/12/23 07:04 Resp 18 12/12/23 07:04 BP 117/58 L 12/12/23 07:04 Pulse Ox 96 12/12/23 07:04 O2 Del Method Room Air 12/12/23 07:04 BMI result Body Mass Index 22.3 Const: General: no acute distress Nutritional Appearance: average body habitus Orientation/consciousness: patient oriented x3 HEENT: Head: Yes normal to inspection Ears: hearing grossly normal bilaterally Eyes: Sclerae: sclerae normal Pupils: Equal, round and reactive pupils present Neck: Neck: Yes normal visual inspection Chest: Chest palpation & inspection: normal inspection of the chest Resp: Effort & Inspection: normal respiratory effort Auscultation: clear to auscultation bilaterally Cardio: Palpation: normal PMI Rate: regular rate Rhythm: regular rhythm Heart sounds: S1 normal heart sound present, S2 normal heart sound present and no murmurs GI: Palpation (GI): Soft to palpation, Tenderness to palpation present (GI) (Mild left sided abdominal tenderness without rebound) and No hepatosplenomegaly present Auscultation: normal bowel sounds Rectal Exam - Female: deferred Skin: General skin exam: no rashes or lesions noted Neuro: General: patient oriented x3, gait normal and moves all extremities Cranial nerves: Yes Equal, round and reactive pupils present Psych: Appearance: grossly normal Mental Status: mental status grossly normal Results Labs 12/13/23 05:52 12/13/23 05:51 Labs: Short CBC 12/12/23 Range/Units 05:00 WBC 6.1 (4.8-10.8) X10*3/uL Hgb 10.5 L D (12.0-16.0) g/dl Hct 33.3 L D (37.0-47.0) % Plt Count 366 (160-400) X10*3/uL BMP 12/12/23 05:00 Sodium 143 Potassium 4.1 Chloride 110 H Carbon Dioxide 24 BUN 7 L Creatinine 0.77 Calcium 8.3 L D Liver Function 12/12/23 Range/Units 05:00 Total Bilirubin 0.3 (0.0-1.0) mg/dL AST 14 (5-31) U/L ALT 7 (0-31) U/L Alkaline Phosphatase 50 (39-117) U/L Albumin 3.2 L (3.5-5.0) g/dL Assessment and Plan (1) Colitis: Status: Acute (2) Rectal bleeding: Status: Resolved (3) Abdominal pain, acute, left lower quadrant: Status: Deleted Plan 63 YF with hyperlipidemia COPD breast cancer diabetes Raynaud's with rheumatoid arthritis and Crohn's seen at [facility] ED on 12/11/23 with left lower quadrant pain and bloody diarrhea. Pt is known to me from past GI clinic visits. Pt described the pain as sharp without radiation. She says she is had multiple bowel movements that are bloody; this does not change her pain. She stated she had similar symptoms prior to her previous admissions. Her symptoms are likely due to CD flare or ischemic colitis RECOMMENDATIONS: Proceed with flexible sigmoidoscopy for further evaluation. Procedure and potential complications including bleeding, perforation, reaction to anesthetic were reviewed with the patient. Procedures Date of Service Date of Service: 12/30/23
[2023-12-12] MEDS: Sodium Phosphate,Mono-Dibasic 133 ML ENEMA PR (13:38)
--- NOTE | 2023-12-12 13:45 | PC.NURSE ---
Enema Given at this time.
--- NOTE | 2023-12-12 13:51 | PC.NURSE ---
Minimal results from PRN Enema.
[2023-12-12 14:16] LABS: Glucose, Whole Blood 83 mg/dL (60-115)
--- NOTE | 2023-12-12 14:19 | HO.ANESPROP2 ---
HPI - Anesthesia Eval Consult details Narrative: 63 yo female patient for flexible sigmoidoscopy [facility] Active Problems Active Problems: All Active Problems (Updated 12/12/23 @ 14:15 by Nisreen Haro MD) Rectal bleeding (Acute) Abdominal pain, acute, left lower quadrant (Acute) Sepsis Gastroparesis (Acute) Hypokalemia (Acute) Tendonitis of ankle or foot (Acute) Kidney stones (Acute) Colitis (Acute) Cough (Acute) Sinus tachycardia (Acute) Stable angina (Acute) Anxiety (Acute) Lumbar degenerative disc disease (Acute) Essential hypertension (Acute) Smoker (Acute) prison (current) use of insulin (Acute) HLD (hyperlipidemia) (Acute) Asthma (Acute) COPD (chronic obstructive pulmonary disease) (Acute) T2DM (type 2 diabetes mellitus) (Acute) Breast cancer (Acute) History of ischemic colitis (Acute) History of Helicobacter pylori infection (Acute) Allergic rhinitis (Acute) Raynauds disease (Acute) NSTEMI (non-ST elevated myocardial infarction) (Acute) Diabetes mellitus (Acute) Stented coronary artery (Acute)x2 . Only on baby aspirin now. COPD exacerbation (Acute) H/O cardiac catheterization (Acute) PAD (peripheral artery disease) (Acute) Infiltrating ductal carcinoma of left breast, stage 2 (Acute) Insomnia (Acute) Bipolar 1 disorder, depressed (Acute) Restrictive airway disease (Acute) Vitamin D deficiency (Acute) Osteoporosis (Acute) Hyperparathyroidism (Acute) Thyroid nodule (Acute) Fibromyalgia (Acute) Seropositive rheumatoid arthritis (Acute) Reactive airways dysfunction syndrome (Acute) Diabetes type 2, uncontrolled (Acute) Past Medical History Medical History Acute respiratory distress Hospital discharge follow-up Tendonitis of ankle or foot Colitis Cough Anxiety CAD (coronary artery disease) HLD (hyperlipidemia) HTN (hypertension) T2DM (type 2 diabetes mellitus) COPD exacerbation Hyperkalemia Atherosclerotic cardiovascular disease GERD (gastroesophageal reflux disease) CVA (cerebral vascular accident) Breast pain, right Rash Bloody diarrhea PAD (peripheral artery disease) Hyperlipidemia LDL goal <100 COPD (chronic obstructive pulmonary disease) Infiltrating ductal carcinoma of left breast, stage 2 Insomnia Dyslipidemia Bipolar 1 disorder, depressed Cough Restrictive airway disease Hypothyroid IDDM (insulin dependent diabetes mellitus) Vitamin D deficiency Osteoporosis Hyperparathyroidism Thyroid nodule Depression Fibromyalgia Seropositive rheumatoid arthritis Reactive airways dysfunction syndrome Allergic rhinitis Irritable bowel Anxiety Bronchial asthma Diabetes type 2, uncontrolled Hypertension Family History Family History Mother Diabetes HTN (hypertension) Uterus cancer Malignant tumor of head Breast cancer Father Diabetes HTN (hypertension) CVD (cardiovascular disease) Heart problem Maternal Aunt Breast cancer Brother Myocardial infarction S/P CABG x 4 Family/Other FH: mental illness Family/Other Lung cancer Other Mental health disorder Family history of problems with anesthesia: No Surgical History Surgical History Hx of sigmoidoscopy History of bronchoscopy Hx of endoscopy H/O cardiac catheterization History of lumpectomy of left breast History of pubovaginal sling History of esophagogastroduodenoscopy (EGD) History of tubal ligation History of colonoscopy History of bunionectomy of both great toes H/O: hysterectomy History of Problems with Anesthesia: No Social History Social History Household Members: Family Household Members Other:: sister Housing: House Are you a primary insurance healthcare representative to a significant other at home: No Do you presently have visiting nurse or other home services: Yes (sister is OPERATOR VACU[employer]) Unable to assess alcohol history related to: Unknown Alcohol intake: never Patient Tobacco Use Status: Current everyday Tobacco user Tobacco use type: Cigarette Cigarette Packs Per Day: 0.5 Cigarettes Per Day: 2 Years Smoked: 48 e-Cigarette/Vaping Use: Never Used Second Hand Smoke Exposure: No Substance Use Type: Marijuana Advance Directives Date on File: 12/22/21 service: No Current occupational status: disabled Current occupation: rt handed Cognitive needs: No Hearing needs: No Vision needs: Yes Meds Allergies Allergy/AdvReac Type Severity Reaction Status Date / Time dog dander [DOGS] Allergy Intermediate Respiratory Verified 12/12/23 14:35 distress shellfish derived Allergy Intermediate Hives Verified 12/12/23 14:35 methylprednisolone Allergy Rash Verified 12/12/23 14:35 etanercept [From Enbrel] AdvReac Intermediate Facial Verified 12/12/23 14:35 Swelling ibuprofen [Ibuprofen] AdvReac Intermediate STOMACH Verified 12/12/23 14:35 UPSET, abdominal pain, nausea and vomiting metformin AdvReac Intermediate Diarrhea Verified 12/12/23 14:35 metronidazole [From FLAGYL] AdvReac Intermediate Diarrhea Verified 12/12/23 14:35 prednisone AdvReac Intermediate hallucinations, Verified 12/12/23 14:35 higher than 20 Active Medications: Current Medications Acetaminophen (Acetaminophen 325 Mg Tablet) 650 mg PO Q6H PRN PRN Reason: Pain, Mild (Pain Scale 1-3) Albuterol/Ipratropium (Albuterol/Iprat 2.5/0.5mg 3 Ml Ampul.Neb) 3 ml INHALE Q4H PRN PRN Reason: wheezing Dextrose (Dextrose 50 % 25 Gm/50 Ml Syringe) 25 gm IVPUSH Q15M PRN; Protocol PRN Reason: per Hypoglycemia Standing Ord. Glucose (Glucose Gel 15 Gm Gel..Gram.) 15 gm PO Q15M PRN; Protocol PRN Reason: per Hypoglycemia Standing Ord. Piperacillin Sod/Tazobactam (Sod 3.375 gm/ Sodium Chloride) 50 mls @ 100 mls/hr IV Q6H [facility] Last Infusion: 12/12/23 08:33 Dose: Infused Insulin Human Lispro (Insulin Lispro 100 Unit/Ml 3 Ml Vial) 0 unit SUBCUT QIDAS [facility]; Protocol Last Admin: 12/12/23 11:31 Dose: Not Given Morphine Sulfate (Morphine Sulfate 4 Mg/Ml Cartridge) 4 mg IVPUSH Q4H PRN; Protocol PRN Reason: Pain, Severe (Pain Scale 7-10) Last Admin: 12/12/23 12:01 Dose: 4 mg Ondansetron HCl (Ondansetron Hcl 4 Mg/2 Ml Vial) 4 mg IVPUSH Q8H PRN PRN Reason: Nausea and Vomiting Last Admin: 12/12/23 07:29 Dose: 4 mg Oxycodone HCl (Oxycodone Hcl Immed Release 5 Mg Tablet) 10 mg PO Q4H PRN PRN Reason: Pain, Moderate(Pain Scale 4-6) Last Admin: 12/11/23 22:13 Dose: 10 mg Sodium Biphosphate/Sodium Phosphate (Sodium Phosphate,[place]-Dibasic 133 Ml Enema) 133 ml [place] ONCE PRN PRN Reason: Pre-Op Surgical Prep Last Admin: 12/12/23 13:38 Dose: 133 ml Sodium Chloride (0.9 % Sodium Chloride Flush 3 Ml Syringe) 3 ml IVFLUSH [facility] Last Admin: 12/12/23 08:00 Dose: 3 ml Home Medications Medication Instructions Recorded Confirmed Last Taken Type albuterol sulfate 90 mcg/actuation 2 inh inhalation Q4H PRN Shortness 08/23/23 12/11/23 09/26/23 History aerosol inhaler Of Breath Or Wheezing pantoprazole 40 mg tablet,delayed 40 mg PO BID 09/27/23 12/11/23 12/10/23 History release codeine 10 mg-guaifenesin 100 mg/5 10 ml PO Q8-12H PRN allergy 11/01/23 12/11/23 Unknown History mL oral liquid symptoms/cough fluticasone fur. 100 mcg-umeclid 1 inh inhalation DAILY 11/01/23 12/11/23 12/10/23 History 62.5 mcg-vilant 25 mcg inhalat.powder (Trelegy Ellipta) lubiprostone 8 mcg capsule 8 mcg PO BID 12/11/23 12/11/23 12/10/23 History (Amitiza) Exam Height,Weight and Vital Signs: Height 4 ft 10 in Weight 48.5 kg Last Vital Signs Temp 98.6 F 12/12/23 14:15 Pulse 76 12/12/23 14:15 Resp 16 12/12/23 14:15 BP 162/74 H 12/12/23 14:15 Pulse Ox 95 12/12/23 14:15 O2 Del Method Room Air 12/12/23 14:15 Pertinent Lab Results Pertinent Lab Results: Laboratory Tests 12/11/23 12/11/23 12/11/23 10:35 13:01 13:49 WBC 12.5 H RBC 5.20 D Hgb 13.9 D Hct 42.2 D MCV 81.2 MCH 26.7 L MCHC 32.9 RDW 14.0 Plt Count 458 H D MPV 10.1 Immature Gran % (Auto) 0.2 Neut % (Auto) 81.3 H Lymph % (Auto) 12.9 L [place] % (Auto) 5.1 Eos % (Auto) 0.2 Baso % (Auto) 0.3 Lymph # (Auto) 1.6 [place] # (Auto) 0.6 Eos # (Auto) 0.0 Baso # (Auto) 0.0 Abs Immat Gran (auto) 0.03 Absolute Neuts (auto) 10.1 H Absolute Nucleated RBC 0.000 Nucleated RBC % (auto) 0.0 Sodium 140 Potassium 4.1 Chloride 107 Carbon Dioxide 22 Anion Gap 15 BUN 14 Creatinine 0.78 Estim Creat Clear Calc 48.9 Estimated GFR > 60 POC Glucose Random Glucose 130 H Lactic Acid 1.6 Calcium 9.7 D Total Bilirubin 0.3 Direct Bilirubin 0.1 AST 15 ALT 9 Alkaline Phosphatase 69 Troponin I High Sens 5.5 D Total Protein 7.4 Albumin 3.9 Lipase 35 Urine Color Dark Yellow Urine Appearance Clear Urine pH 7.[address] 1.020 Urine Protein Negative Urine Glucose (UA) Negative Urine Ketones Trace Urine Blood Negative Urine Nitrite Negative Ur Leukocyte Esterase Trace H Urine RBC 0-2 Urine WBC 0-5 Ur Squamous Epith Cells 0-2 Urine Bacteria None Seen Hyaline Casts 0-2 Stool Occult Blood POSITIVE Influenza Type A (PCR) Influenza Type B (PCR) RSV RNA Qual (PCR) SARS-CoV-2 RNA (RT-PCR) 12/11/23 12/11/23 12/12/23 16:49 21:30 05:00 WBC 6.1 RBC 3.97 L D Hgb 10.5 L D Hct 33.3 L D MCV 83.9 MCH 26.4 L MCHC 31.5 RDW 13.8 Plt Count 366 MPV 10.2 Immature Gran % (Auto) 0.3 Neut % (Auto) 48.3 Lymph % (Auto) 42.0 H [place] % (Auto) 7.4 Eos % (Auto) 1.5 Baso % (Auto) 0.5 Lymph # (Auto) 2.5 [place] # (Auto) 0.5 Eos # (Auto) 0.1 Baso # (Auto) 0.0 Abs Immat Gran (auto) 0.02 Absolute Neuts (auto) 2.9 Absolute Nucleated RBC 0.000 Nucleated RBC % (auto) 0.0 Sodium 143 Potassium 4.1 Chloride 110 H Carbon Dioxide 24 Anion Gap 13 BUN 7 L Creatinine 0.77 Estim Creat Clear Calc 49.5 Estimated GFR > 60 POC Glucose 84 Random Glucose 82 Lactic Acid Calcium 8.3 L D Total Bilirubin 0.3 Direct Bilirubin AST 14 ALT 7 Alkaline Phosphatase 50 Troponin I High Sens Total Protein 5.9 L Albumin 3.2 L Lipase Urine Color Urine Appearance Urine pH Ur Specific Circle Urine Protein Urine Glucose (UA) Urine Ketones Urine Blood Urine Nitrite Ur Leukocyte Esterase Urine RBC Urine WBC Ur Squamous Epith Cells Urine Bacteria Hyaline Casts Stool Occult Blood Influenza Type A (PCR) NEGATIVE Influenza Type B (PCR) NEGATIVE RSV RNA Qual (PCR) NEGATIVE SARS-CoV-2 RNA (RT-PCR) NEGATIVE 12/12/23 12/12/23 12/12/23 07:07 11:07 14:12 WBC RBC Hgb Hct MCV MCH MCHC RDW Plt Count MPV Immature Gran % (Auto) Neut % (Auto) Lymph % (Auto) [place] % (Auto) Eos % (Auto) Baso % (Auto) Lymph # (Auto) [place] # (Auto) Eos # (Auto) Baso # (Auto) Abs Immat Gran (auto) Absolute Neuts (auto) Absolute Nucleated RBC Nucleated RBC % (auto) Sodium Potassium Chloride Carbon Dioxide Anion Gap BUN Creatinine Estim Creat Clear Calc Estimated GFR POC Glucose 84 83 83 Random Glucose Lactic Acid Calcium Total Bilirubin Direct Bilirubin AST ALT Alkaline Phosphatase Troponin I High Sens Total Protein Albumin Lipase Urine Color Urine Appearance Urine pH Ur Specific Circle Urine Protein Urine Glucose (UA) Urine Ketones Urine Blood Urine Nitrite Ur Leukocyte Esterase Urine RBC Urine WBC Ur Squamous Epith Cells Urine Bacteria Hyaline Casts Stool Occult Blood Influenza Type A (PCR) Influenza Type B (PCR) RSV RNA Qual (PCR) SARS-CoV-2 RNA (RT-PCR) Airway Mallampati Class: II TM Dist: >3cm Neck ROM: Full Loose/Missing/Broken Teeth: Yes (Many teeth missing. Denies broken or loose teeth) Heart: RRR Lungs: CTAB Other: IV in-situ left hand (from ER) Assessment and Plan Assessment Anesthesia Assessment: Anesthesia Plan Discussed and Chart Reviewed Final Anesthetic Review Family History of Problems with Anesthesia: No History of Problems with Anesthesia: No NPO: Yes ASA Class: III and Emergency Final Preanesthetic Review: No Changes in Pt Med Stat, Meds/Allgs Chart Reviewed, Consent Obtained/Reviewed and Anes Risks/Benef Reviewed Patient Risk: Intermediate Procedure Risk: Low Assessment/Block/Sedation in SS: Assess/Block/Sedation-SS Anesthetic Plan Anesthetic Plan: MAC: and TIVA Disposition: Standard PACU
--- NOTE | 2023-12-12 14:45 | W.PM.OPN ---
Operative Note Operative Note Date of Service: 12/12/23 Narrative: FLEXIBLE SIGMOIDOSCOPY TILL 50 CMS WITH BIOPSIES Pre-op diagnosis: Crohn's disease, colitis Post-op diagnosis:?left sided colitis, diverticulosis Endoscopist:? Ruth Roman MD Anesthesia:?MAC Consent: Indications for the procedure and potential complications of bleeding, perforation, reaction to medications and missed diagnosis were discussed with the patient and informed consent was obtained. Instrument: Olympus PCF H 190 L variable stiffness pediatric colonoscope Monitoring: Vital signs and clinical assessment, intermittent blood pressure monitoring, continuous EKG monitoring, Pulse oximetry and Carbon Dioxide monitoring were done throughout the procedure. Please see anesthesia flowsheet. Procedure: The patient was placed in the left lateral decubitis position and pre-procedure medications were administered. After a digital rectal examination of the ano-rectum, the video colonoscope was inserted into the rectum and advanced through the colon to 50 cms into the sigmoid colon. The colonoscope was slowly withdrawn in a retrograde panoramic fashion and the colon mucosa was carefully examined including a retroflexed view of the rectum. Findings and interventions are described below. Procedure Difficulty: Without difficulty Findings: Sigmoid Colon: Friable appearing mucosa with patchy erythema in the left colon without ulcerations - random biopsies were obtained. Moderate diverticulosis Rectum: Friable appearing mucosa with patchy erythema Ano-rectum: Normal Colon preparation: Good Impression and Post Procedure Diagnosis: Flexible sigmoidoscopy Findings: Friable appearing mucosa with patchy erythema in the left colon without ulcerations - random biopsies were obtained. cw resolving colitis No polyps were detected. Moderate diverticulosis seen in the left colon No blood seen in the left colon during sigmoidoscopy Plan: Await pathology results. Patient has an appointment on 01/23/24 in the GI Clinic with Ruth Roman M.D. Above findings were reviewed with the patient. BIOPSIES SHOWED: Colon, left, biopsy: Colonic mucosa with lamina propria hemorrhage, partial surface epithelial loss, and scattered neutrophils consistent with active colitis (see comment). Comment: The differential includes infectious, early ischemia, drugs, diverticular disease, and early Crohn's. There is no evidence of chronic colitis, granulomas or dysplasia
--- NOTE | 2023-12-12 15:51 | P.PNIM_ITS ---
Subjective Subjective Date of Service: 12/12/23 Interval History: seen and examined this morning follow up for abdominal pain left side abdominal pain, no further bloody stools Review of Systems Review of Systems: Yes all other systems are reviewed and are negative Constitutional Constitutional: Denies chills and Denies fever(s) Cardiovascular Cardiovascular: Denies chest pain, Denies palpitations and Denies dyspnea Respiratory Respiratory: Denies cough and Denies dyspnea Gastrointestinal Gastrointestinal: Reports abdominal pain Endocrine Endocrine: Denies palpitations Physical Exam 2 Vital Signs: Vital Signs: Last Vital Signs Temp 98.1 F 12/12/23 15:48 Pulse 73 12/12/23 15:48 Resp 16 12/12/23 15:48 BP 132/70 12/12/23 15:48 Pulse Ox 99 12/12/23 15:48 O2 Del Method Room Air 12/12/23 15:48 BMI result Body Mass Index 22.3 Const: General: cooperative, comfortable, no acute distress and alert N utritional Appearance: average body habitus Orientation/consciousness: p atient oriented x3 Resp: Effort & Inspection: normal respiratory effort, able to speak in complete sentences, no respiratory distress and no use of accessory muscles Cardio: Rate: regular rate GI: Other: left side tenderness Inspection: No distended Palpation (GI): Soft to palpation Neuro: General: patient oriented x3, moves all extremities and CN's II-XI intact bilaterally Extrem: General: Yes no pedal edema Objective Data Active Medications Acetaminophen (Acetaminophen 325 Mg Tablet) 650 mg PO Q6H PRN PRN Reason: Pain, Mild (Pain Scale 1-3) Albuterol Sulfate (Albuterol Sulfate (0.083%) 2.5 Mg/3 Ml Vial.Neb) 2.5 mg INHALE ONCE PRN PRN Reason: Shortness of Breath/Wheezing Albuterol/Ipratropium (Albuterol/Iprat 2.5/0.5mg 3 Ml Ampul.Neb) 3 ml INHALE Q4H PRN PRN Reason: wheezing Dextrose (Dextrose 50 % 25 Gm/50 Ml Syringe) 25 gm IVPUSH Q15M PRN; Protocol PRN Reason: per Hypoglycemia Standing Ord. Glucose (Glucose Gel 15 Gm Gel..Gram.) 15 gm PO Q15M PRN; Protocol PRN Reason: per Hypoglycemia Standing Ord. Piperacillin Sod/Tazobactam (Sod 3.375 gm/ Sodium Chloride) 50 mls @ 100 mls/hr IV Q6H [facility] Last Infusion: 12/12/23 08:33 Dose: Infused Documented By: ASTRID Lactated Ringer's (Lr) 1,000 mls @ 100 mls/hr IVCONT .Q10H [facility] Insulin Human Lispro (Insulin Lispro 100 Unit/Ml 3 Ml Vial) 0 unit SUBCUT QIDACHS [facility]; Protocol Last Admin: 12/12/23 11:31 Dose: Not Given Documented By: ASTRID Non-Admin Reason: NPO Morphine Sulfate (Morphine Sulfate 4 Mg/Ml Cartridge) 4 mg IVPUSH Q4H PRN; Protocol PRN Reason: Pain, Severe (Pain Scale 7-10) Last Admin: 12/12/23 12:01 Dose: 4 mg Documented By: ASTRID Ondansetron HCl (Ondansetron Hcl 4 Mg/2 Ml Vial) 4 mg IVPUSH Q8H PRN PRN Reason: Nausea and Vomiting Last Admin: 12/12/23 07:29 Dose: 4 mg Documented By: ASTRID Ondansetron HCl (Ondansetron Hcl 4 Mg/2 Ml Vial) 4 mg IVPUSH ONCE PRN PRN Reason: Nausea and Vomiting Oxycodone HCl (Oxycodone Hcl Immed Release 5 Mg Tablet) 10 mg PO Q4H PRN PRN Reason: Pain, Moderate(Pain Scale 4-6) Last Admin: 12/11/23 22:13 Dose: 10 mg Documented By: TAMMY Sodium Biphosphate/Sodium Phosphate (Sodium Phosphate,[place]ates-Dibasic 133 Ml Enema) 133 ml [place] ONCE PRN PRN Reason: Pre-Op Surgical Prep Last Admin: 12/12/23 13:38 Dose: 133 ml Documented By: ASTRID Sodium Chloride (0.9 % Sodium Chloride Flush 3 Ml Syringe) 3 ml IVFLUSH QSHIFT [facility] Last Admin: 12/12/23 08:00 Dose: 3 ml Documented By: ASTRID Labs 12/12/23 05:00 12/12/23 05:00 Labs: Laboratory Results - last 24 hr 12/11/23 12/11/23 12/12/23 16:49 21:30 05:00 MCV 83.9 MCH 26.4 L MCHC 31.5 RDW 13.8 Plt Count 366 MPV 10.2 Immature Gran % (Auto) 0.3 Neut % (Auto) 48.3 Lymph % (Auto) 42.0 H [place] % (Auto) 7.4 Eos % (Auto) 1.5 Baso % (Auto) 0.5 Lymph # (Auto) 2.5 [place] # (Auto) 0.5 Eos # (Auto) 0.1 Baso # (Auto) 0.0 Abs Immat Gran (auto) 0.02 Absolute Neuts (auto) 2.9 Absolute Nucleated RBC 0.000 Nucleated RBC % (auto) 0.0 Anion Gap 13 Estim Creat Clear Calc 49.5 Estimated GFR > 60 POC Glucose 84 Random Glucose 82 Calcium 8.3 L D Total Bilirubin 0.3 AST 14 ALT 7 Alkaline Phosphatase 50 Total Protein 5.9 L Albumin 3.2 L Influenza Type A (PCR) NEGATIVE Influenza Type B (PCR) NEGATIVE RSV RNA Qual (PCR) NEGATIVE SARS-CoV-2 RNA (RT-PCR) NEGATIVE 12/12/23 12/12/23 12/12/23 07:07 11:07 14:12 MCV MCH MCHC RDW Plt Count MPV Immature Gran % (Auto) Neut % (Auto) Lymph % (Auto) [place] % (Auto) Eos % (Auto) Baso % (Auto) Lymph # (Auto) [place] # (Auto) Eos # (Auto) Baso # (Auto) Abs Immat Gran (auto) Absolute Neuts (auto) Absolute Nucleated RBC Nucleated RBC % (auto) Anion Gap Estim Creat Clear Calc Estimated GFR POC Glucose 84 83 83 Random Glucose Calcium Total Bilirubin AST ALT Alkaline Phosphatase Total Protein Albumin Influenza Type A (PCR) Influenza Type B (PCR) RSV RNA Qual (PCR) SARS-CoV-2 RNA (RT-PCR) Assessment and Plan (1) Abdominal pain, acute, left lower quadrant: Status: Acute Plan 63-year-old female with known history of Crohn's disease presents with lower abdominal pain and bloody diarrhea consistent with flare. Presentation similar to past episodes. Blood cultures drawn IV volume replacement and antibiotics given. sepsis due to Colitis afebrile, white count resolved. no further bloody diarrhea h/o Crohn's disease continue Zosyn seen by GI - s/p sigmoidoscopy showing friable colon mucosa with patchy erythema and no obvious ulcers - biopsies pending no indication for steroids full liquid diet -plan to advance diet in am increase mesalamine to 3 pills daily per GI rec blood cultures pending DM II hold trulicity SSI, POCs, full liquid diet -adjust as indicated once oral status resumes COPD no acute exacerbation -DuoNebs q.4 hours p.r.n. shortness of breath Gerd continue PPI Mood continue home meds Full code DVT ppx - mechanical devices due to bloody diarrhea Requires ongoing hospitalization for IV antibiotics Quality Stroke Does the patient have a stroke diagnosis?: No VTE Prior VTE?: No VTE Risk Level:: Medical - moderate - high VTE Device Contraindication: N/A - Device Ordered VTE Drug Contraindication: Treatment Not Indicated
[2023-12-12 16:06] LABS: Glucose, Whole Blood 74 mg/dL (60-115)
[2023-12-12] MEDS: Omeprazole 20 MG CAPSULE.DR PO (17:00)
[2023-12-12] MEDS: oxyCODONE HCl Immed Release 5 MG TABLET 10 MG PO (19:43)
[2023-12-12 20:27] LABS: Glucose, Whole Blood 113 mg/dL (60-115)
[2023-12-12] MEDS: Mesalamine 400 MG CAP.DRTAB. 1600 MG PO (21:03)
[2023-12-12] MEDS: traZODone HCL 100 MG TABLET PO (21:03)
[2023-12-12] MEDS: Famotidine 20 MG TABLET PO (21:03)
[2023-12-12] MEDS: Pregabalin 200 MG CAPSULE PO (21:03)
[2023-12-12] MEDS: diphenhydrAMINE HCL 25 MG CAPSULE 50 MG PO (22:41)
[2023-12-13] MEDS: Morphine Sulfate 4 MG/ML CARTRIDGE IVPUSH ×2 (01:25→06:25)
[2023-12-13 03:08] VITALS: BP 97/56; PULSE 73; RESP 18; TEMP 36.4; O2SAT 97
[2023-12-13] MEDS: Piperacillin Sodium/Tazobactam 3.375 GM in 0.9 % Sodium Chloride 50 ML IV ×3 (03:32→14:11)
[2023-12-13 04:00] VITALS: RESP 20
[2023-12-13] MEDS: Omeprazole 20 MG CAPSULE.DR PO (06:20)
[2023-12-13 06:50] LABS: MANUAL DIFF FLAG NO
[2023-12-13 06:55] LABS: Basophils Percent Auto 0.7 % (0-2); Eosinophils Absolute Auto 0.1 X10*3/uL (0.0-0.4); Eosinophils Percent Auto 2.3 % (0-4); Hematocrit 35.7 % (37.0-47.0); Hemoglobin 11.3 g/dl (12.0-16.0); Imm Gran Abs Auto 0.01 X10*3/uL (0.00-0.03); Imm Gran Pct Auto 0.2 % (0.0-0.4); Lymphocytes Absolute Auto 1.5 X10*3/uL (1.2-4.9); Lymphocytes Percent Auto 35.7 % (20-40); Mean Corpuscular HGB Conc 31.7 g/dl (31.0-35.0); Mean Corpuscular Hemoglobin 26.5 pg (27.0-33.0); Mean Corpuscular Volume 83.8 fL (80.0-98.0); Mean Platelet Volume 10.8 fL (9.4-12.3); Monocytes Absolute Auto 0.2 X10*3/uL (0.1-1.2); Monocytes Percent Auto 3.8 % (2-11); Neutrophils Absolute Auto 2.4 x10*3/uL (2.0-8.3); Neutrophils Percent Auto 57.3 % (45-73); Platelet Count 361 X10*3/uL (160-400); Red Blood Count 4.26 X10*6/uL (4.20-5.50); Red Cell Distribution Width 13.8 % (11.0-16.0); White Blood Count 4.3 X10*3/uL (4.8-10.8)
[2023-12-13 07:15] LABS: Alanine Aminotransferase 7 U/L (0-31); Albumin Level 3.3 g/dL (3.5-5.0); Alkaline Phosphatase 46 U/L (39-117); Anion Gap 12 (12-20); Aspartate Amino Transferase 14 U/L (5-31); Bilirubin Total 0.4 mg/dL (0.0-1.0); Blood Urea Nitrogen 5 mg/dL (9-16); Calcium 8.4 mg/dL (8.4-10.2); Carbon Dioxide 26 mmol/L (22-29); Chloride 109 mmol/L (96-108); Creatinine Clr Calc Pharmacy 45.4; Estimated Glomerular Filt Rate > 60; Glucose Random 86 mg/dL (60-115); Potassium 3.5 mmol/L (3.3-5.1); Sodium 143 mmol/L (135-145)
[2023-12-13 07:25] VITALS: BP 125/73; PULSE 93; RESP 18; TEMP 36.4; O2SAT 94
[2023-12-13 07:31] LABS: Glucose, Whole Blood 94 mg/dL (60-115)
[2023-12-13] MEDS: 0.9 % Sodium Chloride Flush 3 ML SYRINGE IVFLUSH ×2 (07:48→14:12)
[2023-12-13] MEDS: Pregabalin 200 MG CAPSULE PO (08:01)
[2023-12-13] MEDS: Fluticasone/Umeclidinium/Vilanterol 100/62.5/25 BLST.W.DEV 1 PUFF INHALE (08:09)
[2023-12-13 08:11] VITALS: PULSE 93; RESP 18; O2SAT 97
--- NOTE | 2023-12-13 08:26 | PC.NURSE ---
Pharmacy called, pending verification of Medication.
--- NOTE | 2023-12-13 08:34 | PC.NURSE ---
Pt states family will bring in home med.
--- NOTE | 2023-12-13 09:40 | PC.NURSE ---
Home meds brought to pharmacy.
[2023-12-13 11:25] LABS: Glucose, Whole Blood 137 mg/dL (60-115)
[2023-12-13] MEDS: oxyCODONE HCl Immed Release 5 MG TABLET 10 MG PO (11:34)
--- NOTE | 2023-12-13 12:36 | HO.POSTANES ---
Post Anesthesia Evaluation Post Anesthesia Evaluation Date of Service: 12/13/23 Vital Signs: Vital Signs Temp Pulse Resp BP Pulse Ox O2 Del Method 12/13/23 08:11 93 18 12/13/23 07:25 97.5 F 93 18 125/73 94 Room Air 12/13/23 04:00 20 12/13/23 03:08 97.5 F 73 18 97/56 L 97 Room Air Anesthesia: Monitored Mental Status: Awake Pain Control: Satisfactory Nausea/Vomiting: None Hydration: Adequate Anesthesia-Related Issues: No Anes. Related Issues
[2023-12-13] MEDS: diphenhydrAMINE HCL 25 MG CAPSULE PO (13:16)
--- NOTE | 2023-12-13 14:07 | P.DS_ITS ---
DS: Providers Provider Date of Service: 12/13/23 Date of admission: 12/11/23 18:09 Date of discharge: 12/13/23 Primary care physician: Adela Wasserman MD Consults: 12/11/23 18:34 Consult to Gastroenterology Routine Consulting Provider: Ruth Roman Reason for consultation: colitis Has provider been notified: No [facility] clinician: Johanne Soto DS: Diagnosis Discharge Diagnosis (1) Abdominal pain, acute, left lower quadrant: Status: Acute DS: Summary Hospital Course Hospital Course: From H&P on the day of admission 63-year-old female with past medical history significant for hyperlipidemia COPD breast cancer diabetes Raynaud's along with rheumatoid arthritis and Crohn's presents to the emergency room with left lower quadrant pain that started approximately 10 hours ago. She describes the pain as sharp without radiation. She says she is had multiple bowel movements that are bloody; this does not change her pain. She states this presentation is similar to last episode of flare. In the emergency room she was given Zosyn and IV fluid bolus with cultures being drawn along with lactate of 1.6. sepsis due to Colitis. Patient has remained afebrile, white count resolved. no further bloody diarrhea. She was initially treated with IV zosyn. She was seen by GI and underwent sigmoidoscopy showing friable colon mucosa with patchy erythema and no obvious ulcers - biopsies pending at this time. Per GI there is no indication for steroids. Her abdominal pain is improving, she has had not further rectal bleeding. Her diet was advanced and she is tolerating without issue. Per GI will increase mesalamine to 3 pills daily. Blood cultures negative at 24 hours. The patient has outpatient follow-up with GI in january. will discharge with 5 day course of antibiotics per GI recommendation. she also reports joint pain and thinks related to flare of RA, requesting predinose, will discharge with short course and recommendation to follow up with data reduction technician. Time Attestation Discharge coordination time: Greater than 30 minutes Quality: Safe Use of Opioids Does Pt have an Active Cancer Diagnosis on the Problem List?: No Quality: Stroke Does the patient have a stroke diagnosis?: No Physical Exam Vital Signs: Vital Signs: Last Vital Signs Temp 97.5 F 12/13/23 07:25 Pulse 93 12/13/23 08:11 Resp 18 12/13/23 08:11 BP 125/73 12/13/23 07:25 Pulse Ox 94 12/13/23 07:25 O2 Del Method Room Air 12/13/23 07:25 BMI result Body Mass Index 22.3 Const: General: cooperative, comfortable, no acute distress and alert Nutritional Appearance: average body habitus Orientation/consciousness: patient oriented x3 Resp: Effort & Inspection: normal respiratory effort, able to speak in complete sentences, no respiratory distress and no use of accessory muscles Cardio: Rate: regular rate GI: Inspection: No distended Palpation (GI): Soft to palpation Neuro: General: patient oriented x3, moves all extremities and CN's II-XI intact bilaterally Extrem: General: Yes no pedal edema DS: Data Data Completed and Pending Completed studies during hospitalization [Text1]: Procedures Excision of Sigmoid Colon, Via Natural or Artificial Opening Endoscopic, Diagnostic (01/23/23) Pending studies at discharge: Pending at discharge 12/12/23 15:00 Surgical [PTH] Routine Labs on day of discharge: Laboratory Results - last 24 hr 12/12/23 12/12/23 12/12/23 14:12 16:01 20:23 WBC RBC Hgb Hct MCV MCH MCHC RDW Plt Count MPV Immature Gran % (Auto) Neut % (Auto) Lymph % (Auto) [place] % (Auto) Eos % (Auto) Baso % (Auto) Lymph # (Auto) [place] # (Auto) Eos # (Auto) Baso # (Auto) Abs Immat Gran (auto) Absolute Neuts (auto) Absolute Nucleated RBC Nucleated RBC % (auto) Sodium Potassium Chloride Carbon Dioxide Anion Gap BUN Creatinine Estim Creat Clear Calc Estimated GFR POC Glucose 83 74 113 Random Glucose Calcium Total Bilirubin AST ALT Alkaline Phosphatase Total Protein Albumin 12/13/23 12/13/23 12/13/23 05:51 05:52 07:28 WBC 4.3 L RBC 4.26 Hgb 11.3 L Hct 35.7 L MCV 83.8 MCH 26.5 L MCHC 31.7 RDW 13.8 Plt Count 361 MPV 10.8 Immature Gran % (Auto) 0.2 Neut % (Auto) 57.3 Lymph % (Auto) 35.7 [place] % (Auto) 3.8 Eos % (Auto) 2.3 Baso % (Auto) 0.7 Lymph # (Auto) 1.5 [place] # (Auto) 0.2 Eos # (Auto) 0.1 Baso # (Auto) 0.0 Abs Immat Gran (auto) 0.01 Absolute Neuts (auto) 2.4 Absolute Nucleated RBC 0.000 Nucleated RBC % (auto) 0.0 Sodium 143 Potassium 3.5 Chloride 109 H Carbon Dioxide 26 Anion Gap 12 BUN 5 L Creatinine 0.84 Estim Creat Clear Calc 45.4 Estimated GFR > 60 POC Glucose 94 Random Glucose 86 Calcium 8.4 Total Bilirubin 0.4 AST 14 ALT 7 Alkaline Phosphatase 46 Total Protein 6.0 L Albumin 3.3 L 12/13/23 11:21 WBC RBC Hgb Hct MCV MCH MCHC RDW Plt Count MPV Immature Gran % (Auto) Neut % (Auto) Lymph % (Auto) [place] % (Auto) Eos % (Auto) Baso % (Auto) Lymph # (Auto) [place] # (Auto) Eos # (Auto) Baso # (Auto) Abs Immat Gran (auto) Absolute Neuts (auto) Absolute Nucleated RBC Nucleated RBC % (auto) Sodium Potassium Chloride Carbon Dioxide Anion Gap BUN Creatinine Estim Creat Clear Calc Estimated GFR POC Glucose 137 H Random Glucose Calcium Total Bilirubin AST ALT Alkaline Phosphatase Total Protein Albumin Preliminary micro results at discharge 12/11/23 14:26 Blood Culture - Preliminary Blood - Venous No growth after 24 hours. 12/11/23 13:49 Blood Culture - Preliminary Blood - Venous No growth after 24 hours. Discharge Plan Discharge Anticipated Discharge Date/Time: 12/13/23 14:21 Patient Disposition: Home, Self-Care Discharge Diagnosis: colitis Referrals: Adela Gipson MD [Primary Care Provider] - 1 Week Discharge Medications: New mesalamine 1.2 gram Tablet,Delayed Release (Dr/Ec) 3.6 g PO DAILY 30 Days Qty: 90 0RF amoxicillin-pot clavulanate 875-125 mg tablet 1 tab PO Q12H 4 Days Qty: 8 0RF prednisone 20 mg tablet 20 mg PO DAILY 3 Days Qty: 3 0RF Continued letrozole 2.5 mg Tablet 2.5 mg PO DAILY Qty: 90 3RF levalbuterol tartrate 45 mcg/actuation HFA aerosol inhaler 2 puff inhalation Q4-6H PRN (Reason: shortness of breath) 30 Days Qty: 15 3RF trazodone 100 mg tablet 100 mg PO BEDTIME 90 Days Qty: 90 0RF ipratropium bromide 0.02 % solution 2.5 ml inhalation Q6H PRN (Reason: shortness of breath or wheezing) Qty: 150 3RF Trulicity 1.5 mg/0.5 mL pen injector 1.5 mg subcut TH@0900 Qty: 6 3RF pregabalin [Lyrica] 200 mg capsule 200 mg PO BID Qty: 60 1RF pantoprazole 40 mg tablet,delayed release (DR/EC) 40 mg PO BID Trelegy Ellipta 100-62.5-25 mcg Blister With Device 1 inh INHALATION DAILY codeine-guaifenesin 10-100 mg/5 mL liquid 10 ml PO Q8-12H PRN (Reason: allergy symptoms/cough ) lubiprostone [Amitiza] 8 mcg Capsule 8 mcg PO BID famotidine 20 mg tablet 20 mg PO BEDTIME 90 Days Qty: 90 1RF albuterol sulfate 90 mcg/actuation HFA aerosol inhaler 2 inh inhalation Q4H PRN (Reason: Shortness Of Breath Or Wheezing) sennosides-docusate sodium [Senna with Docusate Sodium] 8.6-50 mg tablet 2 tab-cap PO BEDTIME 60 Days Qty: 120 2RF Rx Instructions: Please take every other day at bedtime Held aspirin 81 mg tablet,delayed release (DR/EC) 81 mg PO DAILY 90 Days Qty: 90 1RF Hold Instructions: resume 12/14 Discontinued mesalamine 1.2 gram tablet,delayed release (DR/EC) 2.4 g PO DAILY Qty: 180 0RF No Action (DME) lancets [FreeStyle Lancets] 28 gauge misc See Rx Instructions .Route Qty: 100 3RF Rx Instructions: Use 1 lancet once a day (DME) walker Misc See Rx Instructions .Route Qty: 1 0RF Rx Instructions: with seat (DME) pen needle, diabetic [Comfort EZ Pen [place]] 31 gauge x 5/16 needle See Rx Instructions .ROUTE .MEDSUPPLY Qty: 200 11RF Rx Instructions: Use 1 pen needle 6 times a day (DME) FreeStyle Lite Strips Strip MISCELLANEOUS DAILY Qty: 100 1RF Rx Instructions: Use 1 test strip three times a day Discharge Orders: Discharge Order (Routine); Ordered 12/13/23 Ordered By: Johanne Soto Activity on Discharge: As tolerated Stand Alone Forms: Patient Portal Discharge page Care Plan Goals: see below Health Concerns: colitis Plan of Treatment: complete course of antibiotics as prescribed increase mesalamine to 3 tabs daily Follow-up with GI for biopsy results Call to schedule post hospitalization follow-up appointment with PCP short burst of prednisone for possible RA flare - call to schedule follow up with rhematology Assessment: see discharge summary Discharge Date/Time: 12/13/23 15:50
[2023-12-13 15:37] VITALS: BP 106/62; PULSE 90; RESP 18; TEMP 37.2; O2SAT 94
--- NOTE | 2023-12-13 15:46 | MHC.CM.PN ---
PT WILL DC HOME TODAY WITH RESUMPTION OF HER [employer] FAMILY TO TRANSPORT
--- NOTE | 2023-12-13 16:07 | PC.NURSE ---
Pt left after d/c, left her paperwork on the bed. call placed to cotton picker the paper work. Pt states she will look up the paperwork on the portal, does not want to come back to the hospital to retrieve. No question at this time.
== END 2023-12-13 15:50 | disposition home or self-care (01) | DRG 872 ==
LOC: HO.ED 17:04 → HO.EDOVER 18:34 → HO.S3 21:43
PROVIDERS: Internal Medicine Gastroenterology; Admitting Provider Hospitalist; Emergency Provider Emergency Medicine; PCP Internal Medicine; Visit Provider Physician Assistant Medical
PROC: 0DJD8ZZ Inspection of Lower Intestinal Tract, Via Natural or Artificial Opening Endoscopic (ICD-10-PCS; CPT 45330; principal; 2023-12-12 14:30)
DX: A41.9 Sepsis, unspecified organism (principal); K51.50 Left sided colitis without complications; K57.30 Diverticulosis of large intestine without perforation or abscess without bleeding; I25.10 Atherosclerotic heart disease of native coronary artery without angina pectoris; J44.9 Chronic obstructive pulmonary disease, unspecified; K21.9 Gastro-esophageal reflux disease without esophagitis; E78.5 Hyperlipidemia, unspecified; M06.9 Rheumatoid arthritis, unspecified; E11.65 Type 2 diabetes mellitus with hyperglycemia; Z20.822 Contact with and (suspected) exposure to COVID-19; Z79.4 Long term (current) use of insulin; Z79.82 Long term (current) use of aspirin; Z79.899 Other long term (current) drug therapy
CPT/HCPCS: 0241U; 36415; 71045; 74177; 80048; 80053; 80076; 81001; 82272; 82947; 83605; 83690; 84484; 85025; 87040; 88305; 93005; 94640; 99285; J2270; J2405; J2543; J2704; Q9967

== ENCOUNTER → 2023-12-11 10:22 | Outpatient (BNV) | payer MEDICARE, MEDICAID, SELFPAY | PROVIDERS: Emergency Provider Emergency Medicine; PCP Internal Medicine; Visit Provider Internal Medicine Cardiovascular Disease | DX: R07.9 Chest pain, unspecified (principal) | CPT/HCPCS: 93010 ==

== ENCOUNTER → 2023-12-11 18:09 | Outpatient (BNV) | payer MEDICARE, MEDICAID, SELFPAY | PROVIDERS: Admitting Provider Hospitalist; Emergency Provider Emergency Medicine; PCP Internal Medicine; Visit Provider Hospitalist | DX: A41.9 Sepsis, unspecified organism (principal); E11.65 Type 2 diabetes mellitus with hyperglycemia; R10.32 Left lower quadrant pain | CPT/HCPCS: 99223; 99232; 99239 ==

== ENCOUNTER → 2023-12-11 18:09 | Outpatient (BNV) | payer MEDICARE, MEDICAID, SELFPAY | PROVIDERS: Admitting Provider Hospitalist; Emergency Provider Emergency Medicine; PCP Internal Medicine; Visit Provider Internal Medicine Gastroenterology | DX: K52.9 Noninfective gastroenteritis and colitis, unspecified (principal); K62.5 Hemorrhage of anus and rectum | CPT/HCPCS: 45331; 99222 ==

== ENCOUNTER 2023-12-25 09:26 | Outpatient (AMB) | payer OTHER, SELFPAY ==
--- NOTE | 2023-12-25 09:29 | MHC.PC.OV ---
Vital Signs 12/25/23 09:31 Height 4 ft 10 in Weight 45.359 kg BMI 20.9 BP 102/70 Blood Pressure Location Lt brachial Position Sitting Pulse 124 H Pulse Source Pulse Oximeter Pulse Oximetry (%) 97 Intake Visit Reasons: TCM [facility] 12/13/2023 Abd pain Intake Note: Patient here for [facility] TCM follow up 12/13/23 abdominal pain Dispute Specialist Required: No Accompanied by: Self / Same As Patient Allergies dog dander [DOGS] Allergy (Intermediate, Verified 12/27/23 10:19) Respiratory distress shellfish derived Allergy (Intermediate, Verified 12/27/23 10:19) Hives methylprednisolone Allergy (Verified 12/27/23 10:19) Rash etanercept [From Enbrel] Adverse Reaction (Intermediate, Verified 12/27/23 10:19) Facial Swelling ibuprofen [Ibuprofen] Adverse Reaction (Intermediate, Verified 12/27/23 10:19) STOMACH UPSET, abdominal pain, nausea and vomiting metformin Adverse Reaction (Intermediate, Verified 12/27/23 10:19) Diarrhea metronidazole [From FLAGYL] Adverse Reaction (Intermediate, Verified 12/27/23 10:19) Diarrhea prednisone Adverse Reaction (Intermediate, Verified 12/27/23 10:19) hallucinations, higher than 20 Medication List - Last Reconciled 01/02/24 by JOSEF Baxter albuterol sulfate 90 mcg/actuation 2 inhalations inhalation Q4H PRN aspirin 81 mg PO DAILY 90 days blood sugar diagnostic (FreeStyle Lite Strips) Use 1 test strip three times a day codeine-guaifenesin 10-100 mg/5 mL 10 mL PO Q8-12H PRN dulaglutide (Trulicity) 1.5 mg (0.5 mL) subcut TH@0900 famotidine 20 mg PO BEDTIME 90 days uirlyxaaxdi-vpbkccwki-nkjzqdrb 100-62.5-25 mcg (Trelegy Ellipta) 1 inh inhalation DAILY folic acid 1 mg PO DAILY ipratropium bromide 2.5 mL inhalation Q6H PRN lancets (FreeStyle Lancets) Use 1 lancet once a day letrozole 2.5 mg PO DAILY levalbuterol tartrate 45 mcg/actuation 2 puffs inhalation Q4-6H PRN 30 days lubiprostone (Amitiza) 8 mcg PO BID mesalamine 3.6 grams (3 x 1.2 gram) PO DAILY 30 days methotrexate sodium 15 mg (6 x 2.5 mg) PO QWEEK pantoprazole 40 mg PO BID pen needle, diabetic (Comfort EZ Pen Bradford) Use 1 pen needle 6 times a day prednisone Take 4 pills per day x 7 days, 3 pills per day x 7 days , 2 pills per day x 14 days. pregabalin (Lyrica) 200 mg PO BID sennosides-docusate sodium 8.6-50 mg (Senna with Docusate Sodium) 2 tab-caps (2 x 8.6-50 mg) PO BEDTIME 60 days trazodone 100 mg PO BEDTIME 90 days walker with seat Tobacco use date assessed: 11/27/23 Dental Screening Dental Screen Date: 12/25/23 Did you have a dental visit in the last 12 months?: No Did you have a dental problem in the last 6 months where you did not have access to dental care?: No Was dental information given to patient?: Yes HPI TCM TCM Information Date of Discharge 12/13/23 Discharged From [facility] Interactive Contact Date (Reference documentation from this date) 12/25/23 HPI Comments History of Present Illness Details 63-year-old female with history hyperlipidemia, COPD, breast cancer, type 2 diabetes, renal disease, Crohn's disease, rheumatoid arthritis presents to the office today for hospital discharge follow-up. She was admitted to [facility] from 12/11-12/13 for management of sepsis due to colitis. White blood cell count resolved during admission as did for bloody diarrhea. She had initially been treated with IV Zosyn and was seen by GI, underwent sigmoidoscopy showing friable colon mucosa with patchy erythema but no obvious ulcers, biopsies remained pending. Per GI, there was no indication for steroids. Diet was advanced. Mesalamine was increased to 3 pills daily. She was discharged home and advised to follow up with GI as scheduled in January. She was also discharged on 5 days of Augmentin. During hospitalization, she was also reporting diffuse joint pain with concern for flare of rheumatoid arthritis and was started on prednisone. Discharged on 20 mg of prednisone x3 days. Since discharge, she states she has been avoiding inflammatory foods but still has little appetite. She has been supplementing her diet with boost. Denies any ongoing diarrhea, hematochezia. No abdominal pain, nausea, vomiting. SHe has upcoming GI appt on 01/22 Her main concern again today is chronic pain. She is reporting diffuse joint pain as well as muscle pains throughout her body. She was seen last month in the office by this provider and was prescribed Cymbalta. She TH she only took this for several days before discontinuing as she was concerned about tardive dyskinesia which she had previously experienced with Lamictal. Discussed that S an RI therapy such as duloxetine are not associated with tardive dyskinesia typically and can be very effective for chronic pain. She states that she is having difficulty walking because bending her knees is painful and she is also reporting joint swelling. She states the prednisone that was prescribed was not helpful. At prior visit, we had also discussed that treating her mental health could help her chronic pain as well but she is yet to seek out a psychiatrist or a therapist. She was previously seen at [facility] and states she will look into reestablishing care here. She is also interested in acupuncture and states her insurance company is agreeable to paying for this. She is not exercising. Has upcoming appt with rheumatology on 12/27. 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 T2DM (type 2 diabetes mellitus) Acute respiratory distress Hospital discharge follow-up Tendonitis of ankle or foot Colitis Cough Anxiety CAD (coronary artery disease) HLD (hyperlipidemia) HTN (hypertension) T2DM (type 2 diabetes mellitus) COPD exacerbation Hyperkalemia Atherosclerotic cardiovascular disease GERD (gastroesophageal reflux disease) CVA (cerebral vascular accident) Breast pain, right Rash Bloody diarrhea PAD (peripheral artery disease) Hyperlipidemia LDL goal <100 COPD (chronic obstructive pulmonary disease) Infiltrating ductal carcinoma of left breast, stage 2 Insomnia Dyslipidemia Bipolar 1 disorder, depressed Cough Restrictive airway disease Hypothyroid IDDM (insulin dependent diabetes mellitus) Vitamin D deficiency Osteoporosis Hyperparathyroidism Thyroid nodule Depression Fibromyalgia Seropositive rheumatoid arthritis Reactive airways dysfunction syndrome Allergic rhinitis Irritable bowel Anxiety Bronchial asthma Diabetes type 2, uncontrolled Hypertension Surgical History Hx of sigmoidoscopy History of bronchoscopy Hx of endoscopy H/O cardiac catheterization History of lumpectomy of left breast History of pubovaginal sling History of esophagogastroduodenoscopy (EGD) History of tubal ligation History of colonoscopy History of bunionectomy of both great toes H/O: hysterectomy Family History Mother Diabetes HTN (hypertension) Uterus cancer Malignant tumor of head Breast cancer Father Diabetes HTN (hypertension) CVD (cardiovascular disease) Heart problem Maternal Aunt Breast cancer Brother Myocardial infarction S/P CABG x 4 Family/Other FH: mental illness Family/Other Lung cancer Other Mental health disorder Social History Household Members: Family Household Members Other:: sister Housing: House Are you a primary toddler caregiver to a significant other at home: No Do you presently have visiting nurse or other home services: Yes (sister is RETAIL SALES PROFESSIONAL) Unable to assess alcohol history related to: Unknown Alcohol intake: never Patient Tobacco Use Status: Current everyday Tobacco user Tobacco use type: Cigarette Cigarette Packs Per Day: 0.5 Cigarettes Per Day: 2 Years Smoked: 48 e-Cigarette/Vaping Use: Never Used Second Hand Smoke Exposure: No Substance Use Type: Marijuana Advance Directives Date on File: 12/22/21 service: No Current occupational status: disabled Current occupation: rt handed Cognitive needs: No Hearing needs: No Vision needs: Yes Questionnaire Thrive Questionnaire Date Thrive assessed: 12/12/23 FLAVIA-7 AMB Questionnaire FLAVIA-7 Date FLAVIA - 7 assessed: 11/27/23 Source: Developed by Drs. Hernandez Norris, Gissell Solorzano, Gilmar Szymanski and colleagues, with an educational chris from [employer]. Review of Systems Const All systems reviewed & are unremarkable except as noted in HPI and below Physical exam (Primary Care) Vital Signs: Last Vital Signs Pulse 124 H 12/25/23 09:31 BP 102/70 12/25/23 09:31 Pulse Ox 97 12/25/23 09:31 BMI result Body Mass Index 20.9 Tobacco/Smoking Status: Tobacco use Status Tobacco use date assessed 11/27/23 12/25/23 09:30 Patient Tobacco Use Status Current everyday Tobacco 12/25/23 09:30 Tobacco use type Cigarette 12/25/23 09:30 e-Cigarette/Vaping Use Never Used 12/25/23 09:30 Thrive Assessment: Date of Thrive Assessment Date Thrive assessed 12/12/23 12/25/23 09:30 Const Other: Constitutional - Awake and Alert, No apparent distress Eyes - PERRLA, EOMI Cardiovascular - S1S2, RRR, No edema Respiratory - Normal lung expansion, Normal respiratory effort, No respiratory distress, CTA bilaterally Extremities - no calf tenderness bilaterally, no swelling Skin - Warm/Dry Neurological - Alert & oriented x3 Psychological - Appropriate affect Results Reviewed Results Reviewed: cbc, bmp, ct abd/pelvis, gi consult, sigmoidoscopy report, history and physical, discharge summary Assessment and Plan Assessment & Plan (1) Hospital discharge follow-up: Code(s): Z09 - Encounter for follow-up examination after completed treatment for conditions other than malignant neoplasm Plan: discharge medications reviewed and reconciled (2) Colitis: Code(s): K52.9 - Noninfective gastroenteritis and colitis, unspecified Plan: Likely related to Crohns disease with sigmoidoscopy biopsy results revealing nonspecific colitis findings. COntinue with 3 tabs mesalamine on a daily basis. Continue avoidance of inflammatory foods, caffeine. Follow up with Gastroenterology on 01/22 as scheduled. (3) Fibromyalgia: Code(s): M79.7 - Fibromyalgia Plan: Suspect ongoing chronic pain reports likely related to fibromyalgia given history of multiple tender points on exam and poorly controlled mood disorder though cannot exclude RA which pt was previously diagnosed though tells me was recently told by asbestos abatement worker that she does not have rheumatoid arthritis. Patient reassured that duloxetine is very unlikely to cause tardive dyskinesia and she is encouraged to trial the medication that was previously prescribed at 30 mg daily x1 week and then increase to 60 mg daily. Advised to reestablish care at [facility] to establish with psychiatrist and therapist to better manage mood symptoms. Also encouraged patient to avoid inflammatory foods including sugars and caffeine and to exercise as much as possible including stretching and weight-bearing exercise. She will follow-up with Rheumatology on 12/27 as scheduled for further investigation to possible rheumatoid arthritis. (4) Seropositive rheumatoid arthritis: Comment: Orenica: 04/2021- 06/2022- stopped due to severe COPD requiring long standing azithromycin Plaquenil: approx. 02/2021-May 2021 self stopped Enbrel: approx. 02/2021 ordered after cleared for hep A, stopped due to allergy Sulfasalazine: approx. 02/2019- 02/2021 - restarted 09/27/2022 -04/2023 stopped due to heaedache and nausea Methorexate: approx. 11/2016-12/2018 started in [facility]. Diagnosed with breast CA so methotrexate discontinued. Changed to sulfsalazine 500mg 2 tabs BID to prevent lung fibrosis as patient was receiving radiation therapy for her breast CA. Completed Radiation therapy February 2019. OnTamoxifen but had side effects so was started on Letrozole in May 2019. Xeljanz: approx. 03/2018-04/2018 Cimzia: aprrox.05/2017- did not take Humira: dates unknown Leflunomide: many years ago, then approx. 08/2020-02/2021 Diagnosed 25 years ago Code(s): M05.9 - Rheumatoid arthritis with rheumatoid factor, unspecified Plan: see above Coding Level of Care Code Est Pt Level 5 (71109) Diagnoses Hospital discharge follow-up Z09 Colitis K52.9 Fibromyalgia M79.7 Seropositive rheumatoid arthritis M05.9 Time Spent (min) 45 Comment time spent reviewing, with patient, documentation time
[2023-12-25 09:31] VITALS: BP 102/70; PULSE 124; O2SAT 97; BMI 20.9
== END 2023-12-25 10:48 | disposition home or self-care (01) ==
PROVIDERS: PCP Internal Medicine; Visit Provider Physician Assistant
DX: K52.9 Noninfective gastroenteritis and colitis, unspecified (principal); M79.7 Fibromyalgia; M05.9 Rheumatoid arthritis with rheumatoid factor, unspecified; Z09 Encounter for follow-up examination after completed treatment for conditions other than malignant neoplasm
CPT/HCPCS: 99215

== ENCOUNTER 2023-12-27 10:10 | Outpatient (AMB) | payer OTHER, SELFPAY ==
--- NOTE | 2023-12-27 10:16 | A.OFFVIS_ITS ---
Intake Vital Signs 12/27/23 10:17 Height 4 ft 10 in Weight 101 lb 6.602 oz BMI 21.2 BP 116/60 Blood Pressure Location Rt brachial Position Sitting Pulse 109 H Pulse Source Pulse Oximeter Temp 97.2 F Temp Source Skin Pulse Oximetry (%) 99 Oxygen Delivery Method Room Air Intake Visit Reasons: Swollen Joints Intake Note: Pt last seen 09/03/23, presents today with c/o pain all over in joints and muscles. Reports hand swelling. States she's been seen in ED multiple times and reports she used to take sulfasalazine but Dr Nguyen discontinued it. 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 Accompanied by: Self / Same As Patient Allergies dog dander [DOGS] Allergy (Intermediate, Verified 12/27/23 10:19) Respiratory distress shellfish derived Allergy (Intermediate, Verified 12/27/23 10:19) Hives methylprednisolone Allergy (Verified 12/27/23 10:19) Rash etanercept [From Enbrel] Adverse Reaction (Intermediate, Verified 12/27/23 10:19) Facial Swelling ibuprofen [Ibuprofen] Adverse Reaction (Intermediate, Verified 12/27/23 10:19) STOMACH UPSET, abdominal pain, nausea and vomiting metformin Adverse Reaction (Intermediate, Verified 12/27/23 10:19) Diarrhea metronidazole [From FLAGYL] Adverse Reaction (Intermediate, Verified 12/27/23 10:19) Diarrhea prednisone Adverse Reaction (Intermediate, Verified 12/27/23 10:19) hallucinations, higher than 20 HPI HPI Comments History of Present Illness Details Ms. Swan is in the office today for a sick visit related to her rheumatoid arthritis. She has been off meication for some time. She is complaining for all over body pain today and would like to restart Medication for RA. he remains on Lyrica 200 mg twice a day, prednisone 5 mg daily, and occasional carisoprodol or cyclobenzaprine. She started on morhpine for Kidney stones and this has not been helpful for the joint pain. Prior Visit: Ms. Swan returns for evaluation of her rheumatoid arthritis. She is complaining for all over body pain today and has a history of fibromyalgia. She was diagnosed with Crohn's and has now been on Mesalamine for two weeks. She still has significant joint pain at times, this tends to be an episodic phenomena. She describes episodes of pain at the base of her thumbs sometimes involving some swelling also up into the 2nd MCP joint and the wrist. These last a day or 2 and then subside. Tenderness to the plantar aspect of her feet, feels like burning, and achilles pain bilaterally. She also has lower back pain. She remains on Lyrica 200 mg twice a day, prednisone 5 mg daily, and occasional carisoprodol or cyclobenzaprine. She started on morhpine for Kidney stones and this has not been helpful for the joint pain. [facility] Medical History (Updated 12/27/23 @ 10:[address] 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 T2DM (type 2 diabetes mellitus) Acute respiratory distress Hospital discharge follow-up Tendonitis of ankle or foot Colitis Cough Anxiety CAD (coronary artery disease) HLD (hyperlipidemia) HTN (hypertension) T2DM (type 2 diabetes mellitus) COPD exacerbation Hyperkalemia Atherosclerotic cardiovascular disease GERD (gastroesophageal reflux disease) CVA (cerebral vascular accident) Breast pain, right Rash Bloody diarrhea PAD (peripheral artery disease) Hyperlipidemia LDL goal <100 COPD (chronic obstructive pulmonary disease) Infiltrating ductal carcinoma of left breast, stage 2 Insomnia Dyslipidemia Bipolar 1 disorder, depressed Cough Restrictive airway disease Hypothyroid IDDM (insulin dependent diabetes mellitus) Vitamin D deficiency Osteoporosis Hyperparathyroidism Thyroid nodule Depression Fibromyalgia Seropositive rheumatoid arthritis Reactive airways dysfunction syndrome Allergic rhinitis Irritable bowel Anxiety Bronchial asthma Diabetes type 2, uncontrolled Hypertension Surgical History Hx of sigmoidoscopy History of bronchoscopy Hx of endoscopy H/O cardiac catheterization History of lumpectomy of left breast History of pubovaginal sling History of esophagogastroduodenoscopy (EGD) History of tubal ligation History of colonoscopy History of bunionectomy of both great toes H/O: hysterectomy Family History Mother Diabetes HTN (hypertension) Uterus cancer Malignant tumor of head Breast cancer Father Diabetes HTN (hypertension) CVD (cardiovascular disease) Heart problem Maternal Aunt Breast cancer Brother Myocardial infarction S/P CABG x 4 Family/Other FH: mental illness Family/Other Lung cancer Other Mental health disorder Social History Household Members: Family Household Members Other:: sister Housing: House Are you a primary director of healthcare systems to a significant other at home: No Do you presently have visiting nurse or other home services: Yes (sister is DICTATING MACHINE TRANSCRIBER) Unable to assess alcohol history related to: Unknown Alcohol intake: never Patient Tobacco Use Status: Current everyday Tobacco user Tobacco use type: Cigarette Cigarette Packs Per Day: 0.5 Cigarettes Per Day: 2 Years Smoked: 48 e-Cigarette/Vaping Use: Never Used Second Hand Smoke Exposure: No Substance Use Type: Marijuana Advance Directives Date on File: 12/22/21 service: No Current occupational status: disabled Current occupation: rt handed Cognitive needs: No Hearing needs: No Vision needs: Yes Review of Systems Const All systems reviewed & are unremarkable except as noted in HPI and below Physical Exam Vital Signs: Last Vital Signs Temp 97.2 F 12/27/23 10:17 Pulse 109 H 12/27/23 10:17 BP 116/60 12/27/23 10:17 Pulse Ox 99 12/27/23 10:17 Oxygen Delivery Method Room Air 12/27/23 10:17 BMI result Body Mass Index 21.2 Assessment & Plan Assessment & Plan (1) Seropositive rheumatoid arthritis: Comment: Orenica: 04/2021- 06/2022- stopped due to severe COPD requiring long standing a zithromycin Plaquenil: approx. 02/2021-May 2021 self stopped Enbrel: approx. 02/2021 ordered after cleared for hep A, stopped due to allergy Sulfasalazine: approx. 02/2019- 02/2021 - restarted 09/27/2022 -04/2023 stopped due to heaedache and nausea Methorexate: approx. 11/2016-12/2018 started in [facility] Diagnosed with breast CA so methotrexate discontinued. Changed to sulfsalazine 500mg 2 tabs BID to prevent lung fibrosis as patient was receiving radiation therapy for her breast CA. Completed Radiation therapy February 2019. OnTamoxifen but had side effects so was started on Letrozole in May 2019. Xeljanz: approx. 03/2018-04/2018 Cimzia: aprrox.05/2017- did not take Humira: dates unknown Leflunomide: many years ago, then approx. 08/2020-02/2021 Diagnosed 25 years ago Code(s): M05.9 - Rheumatoid arthritis with rheumatoid factor, unspecified (2) Tendonitis of ankle or foot: Code(s): M77.50 - Other enthesopathy of unspecified foot and ankle (3) Smoker: Comment: Has past history of smoking 50 years. Currently smoking about 3-5 cigarettes a day. Counseled once again that she must quit completely. Advised that her frequent cough is definitely related to her ongoing smoking. 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 I will also start her on a course of Prednisone to bridge MTX. We discussed HUMIRA as an option if MTX is not effective. HUMIRA can also do dual purpose given her crohns. We will obtain labs in 8 weeks. to assess CBC and LFts on MTX. Discussed with patient that smoking can make RA worse. She is down to one cigarette daily. She did not like chantix. She should continue to use topical diclofenac gel on the hands when needed and acetaminophen. She will continue with the Lyrica A follow-up in about 8 weeks recommended. Prior visit Assessment.: Given the +RF and +CCP, and joint pain, it may be Rheumatoid arthritis. And while the patient does have some osteoarthritis in her hands that may occasionally flare-up, it does not present like active rheumatoid arthritis currently. Additionally, she has many tender points consistent with some underlying fibromyalgia. She has had numerous attempts at therapy in the past with 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y drugs. However, the only medication that patient stipulate to that has been helpful is Orencia. She says she felt improved on Orencia which was stopped due to her prophylactic Antibiotic. Now that she has pretty severe COPD with frequent infections, the use of those drugs is more problematic than their potential benefit. Patient was recently diagnosed with Crohn's. This too can add a layer of complexity to her joint pain and may contributing to the Achilles tenderness and the plantar tenderness as in IBD related Tendonitis. Since she was started on Mesalamine for Crohns, we will wait to see if it is effective for the crohns and in turn reduce some of the joint tenderness and also if not, will GI will need to initiate anything further. Given that GI medications do also suppresses the immune system, we have to be careful not to overlap. 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
[2023-12-27 10:17] VITALS: BP 116/60; PULSE 109; TEMP 36.2; O2SAT 99; BMI 21.2
== END 2023-12-27 10:56 | disposition home or self-care (01) ==
PROVIDERS: PCP Internal Medicine; Visit Provider Nurse Practitioner Family
DX: M05.79 Rheumatoid arthritis with rheumatoid factor of multiple sites without organ or systems involvement (principal); M77.50 Other enthesopathy of unspecified foot and ankle; F17.200 Nicotine dependence, unspecified, uncomplicated; Z79.61 Long term (current) use 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
CPT/HCPCS: 99214

== ENCOUNTER → 2023-12-27 10:10 | Outpatient (BNVA) | payer OTHER, MEDICAID, SELFPAY | PROVIDERS: PCP Internal Medicine; Visit Provider Nurse Practitioner Family | DX: M05.9 Rheumatoid arthritis with rheumatoid factor, unspecified (principal); M77.50 Other enthesopathy of unspecified foot and ankle; F17.200 Nicotine dependence, unspecified, uncomplicated; Z79.61 Long term (current) use 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 | CPT/HCPCS: 99212 ==

== ENCOUNTER 2024-01-02 10:33 | Outpatient (REF) | payer OTHER, MEDICAID, SELFPAY ==
[2024-01-02 11:12] LABS: Appearance Urine Clear; Color Urine Yellow; Glucose Urine UA Negative (Negative); Leukocyte Esterase Urine Small (1+) (Negative); Nitrite Urine Negative (Negative); UMIC TRIGGER UA YES; Urine Blood Negative (Negative); Urine Ketones Negative (Negative); Urine Protein Negative (Neg-Trace)
[2024-01-02 11:29] LABS: Anion Gap 13 (12-20); Blood Urea Nitrogen 13 mg/dL (9-16); Calcium 9.9 mg/dL (8.4-10.2); Carbon Dioxide 28 mmol/L (22-29); Chloride 106 mmol/L (96-108); Estimated Glomerular Filt Rate > 60; Potassium 4.5 mmol/L (3.3-5.1); Sodium 142 mmol/L (135-145)
[2024-01-02 11:29] LABS: Bacteria Urine None Seen (None Seen); Hyaline Casts Urine 0-2 /LPF (0-2); RBC Urine 0-2 /HPF (0-2); Squamous Epithelial Cell Urine 0-2 /HPF (0-2); WBC Urine 0-5 /HPF (0-5)
[2024-01-02 11:30] LABS: Creatinine Urine 112.41 mg/dL; Microalbumin Urine < 5.0 mg/L; Total Protein Urine Random < 7 mg/dL (<12)
== END 2024-01-02 10:34 | disposition home or self-care (01) ==
LOC: HO.LAB 10:33
PROVIDERS: Absent Provider Internal Medicine Nephrology; Visit Provider Nurse Practitioner Family
DX: E11.22 Type 2 diabetes mellitus with diabetic chronic kidney disease (principal); N18.31 Chronic kidney disease, stage 3a; N25.0 Renal osteodystrophy
CPT/HCPCS: 36415; 80051; 80053; 80164; 81001; 81003; 82043; 82310; 82565; 82570; 84156; 84520; 85025

== ENCOUNTER 2024-01-23 07:45 | Outpatient (AMB) | payer OTHER, SELFPAY ==
--- NOTE | 2024-01-23 07:49 | MHC.OFFVIS ---
Intake Vital Signs 01/23/24 08:02 Height 4 ft 10 in Weight 103 lb BMI 21.5 BP 136/69 Blood Pressure Location Lt brachial Position Sitting Pulse 81 Intake Visit Reasons: 2 month follow up Intake Note: Patient follow up from ED due bloody diarrhea. Patient cc: abdominal pain, nauseas, diarrhea, swallowing problems with sticky food and her saliva. Hostess Cashier Required: No Accompanied by: Self / Same As Patient Allergies dog dander [DOGS] Allergy (Intermediate, Verified 01/23/24 07:56) Respiratory distress shellfish derived Allergy (Intermediate, Verified 01/23/24 07:56) Hives methylprednisolone Allergy (Verified 01/23/24 07:56) Rash etanercept [From Enbrel] Adverse Reaction (Intermediate, Verified 01/23/24 07:56) Facial Swelling ibuprofen [Ibuprofen] Adverse Reaction (Intermediate, Verified 01/23/24 07:56) STOMACH UPSET, abdominal pain, nausea and vomiting metformin Adverse Reaction (Intermediate, Verified 01/23/24 07:56) Diarrhea metronidazole [From FLAGYL] Adverse Reaction (Intermediate, Verified 01/23/24 07:56) Diarrhea prednisone Adverse Reaction (Intermediate, Verified 01/23/24 07:56) hallucinations, higher than 20 Medication List - Last Reconciled 01/23/24 by Ruth Roman MD albuterol sulfate 90 mcg/actuation 2 inhalations inhalation Q4H PRN aspirin 81 mg PO DAILY 90 days blood sugar diagnostic (FreeStyle Lite Strips) Use 1 test strip three times a day [clamp on tub safety rail As directed] codeine-guaifenesin 10-100 mg/5 mL 10 mL PO Q8-12H PRN dulaglutide (Trulicity) 1.5 mg (0.5 mL) subcut TH@0900 [ez party plan sales host/hostess bed assist support As directed] famotidine 20 mg PO BEDTIME 90 days edryqeklqfr-cmnwwnqmb-zqkbunzh 100-62.5-25 mcg (Trelegy Ellipta) 1 inh inhalation DAILY folic acid 1 mg PO DAILY ipratropium bromide 2.5 mL inhalation Q6H PRN lancets (FreeStyle Lancets) Use 1 lancet once a day letrozole 2.5 mg PO DAILY levalbuterol tartrate 45 mcg/actuation 2 puffs inhalation Q4-6H PRN 30 days lubiprostone (Amitiza) 8 mcg PO BID mesalamine 3.6 grams (3 x 1.2 gram) PO DAILY 30 days methotrexate sodium 15 mg (6 x 2.5 mg) PO QWEEK pantoprazole 40 mg PO BID pen needle, diabetic (Comfort EZ Pen [place]) Use 1 pen needle 6 times a day prednisone Take 4 pills per day x 7 days, 3 pills per day x 7 days , 2 pills per day x 14 days. pregabalin (Lyrica) 200 mg PO BID sennosides-docusate sodium 8.6-50 mg (Senna with Docusate Sodium) 2 tab-caps (2 x 8.6-50 mg) PO BEDTIME 60 days Shower Chair As directed trazodone 100 mg PO BEDTIME 90 days walker with seat HPI 2 month follow up HPI Details GI CLINIC VISIT FOR THIS 63-YEAR-OLD FEMALE FOR FU OF GERD AND DYSPHAGIA PT IS KNOWN TO ME FROM PAST GI VISITS FOR COLITIS SEEN ON CT SCAN AND FOR POSITIVE HEP A AB (IG M) Pt was hospitalized at [facility] in 11/01 TO 11/05/23 with abdominal pain, nausea and vomiting: Hospital course: Patient came to the hospital because of abdominal pain and bloody diarrhea secondary to colitis in the setting of underlying inflammatory bowel disease: Her CT abdomen showed-acute colitis, Started on IV antibiotics and H&H monitored, given IV hydration also: With the supportive care patient seem to improved to her baseline, abdominal pain improved significantly, tolerating diet, blood culture negative at 48 hours, patient antibiotics switched to p.o. Levaquin for 4 days as well as metronidazole 500 mg p.o. b.i.d. for 4 more days. Her H&H is stable around 11.1/34.6. Leukocytosis improved, blood culture negative, no fever. smoking cessation strongly advised. plan: complete p.o. Levaquin for 4 days as well as metronidazole 500 mg p.o. b.i.d. for 4 more days Patient was strongly advised to follow-up with PCP and GI out patiently. HAD BRONCHOSCOPY ON 08/16? , FOUND TO HAVE GENERALIZED INFLAMMATION.? AND ENDOBRONCHIAL LESION IN THE RIGHT LOWER LOBE WAS SUSPECTED. BIOPSY AND CYTOLOGY IS CONSISTENT WITH MILD INFLAMMATORY CHANGES, NO METAPLASIA NEOPLASTIC CELLS. IMAGING STUDIES:? 10/15/23 GASTRIC EMPTYING STUDY SHOWED: 1 hour 64% (normal 37%-90%) 2 hours 50% (normal 30%-60%) 3 hours 33% 4 hours 13% (normal 0%-10%) NM/NM gastric emptying study IMPRESSION: Abnormal grade 1 delayed 4 hour gastric emptying study. US WITH DUPLEX: Elevated velocity in the proximal superior mesenteric artery is nonspecific. By velocity criteria, this is consistent with hemodynamically significant stenosis. However, the distal waveforms are not indicative of significant upstream disease and there is no significant stenosis seen on CT from 02/01/2023. 10/2022 BARIUM SWALLOW SHOWED: Following oral administration of thick, thin barium and barium-coatedturkey in upright view, there is normal propagation of bolus from the oral cavity through the pharynx, esophagus into stomach without obstruction, narrowing or stricture. There is mild prominence of cricoesophageal sphincter indenting the upper esophagus. There is mild ventral spondylosis at the C5-C6 and C6-C7 disc levels with minimal indentation on the posterior cervical esophageal wall. However, there is no obstruction. On oral administration of barium tablet, there is transient holdup in the mid esophagus and slightly longer in the distal esophagus. 02/21/22 ABD US SHOWED: 1.? Increased hepatic echogenicity suggesting hepatic steatosis. 2.? Nonobstructive calculus in the right renal lower pole measuring 3 mm. 02/[address] SCAN SHOWED:A cause for the patient's diffuse abdominal pain has not been found.Incidental note made of: 1.? Hepatic steatosis. 2.? Small stable adrenal nodule, unchanged over many years 3.? Status post hysterectomy. 08/[address] SCAN SHOWED:Mild bowel wall thickening of the sigmoid colon which could be due to amild colitis. There is no surrounding pericolonic edema however. Thereis no bowel obstruction. ENDOSCOPIC STUDIES: 12/12/23 FKEX SIG SHOWED: Flexible sigmoidoscopy Findings: Friable appearing mucosa with patchy erythema in the left colon without ulcerations - random biopsies were obtained. cw resolving colitis No polyps were detected. Moderate diverticulosis seen in the left colon No blood seen in the left colon during sigmoidoscopy Plan: Above findings were reviewed with the patient. BIOPSIES SHOWED: Colon, left, biopsy: Colonic mucosa with lamina propria hemorrhage, partial surface epithelial loss, and scattered neutrophils consistent with active colitis (see comment). Comment: The differential includes infectious, early ischemia, drugs, diverticular disease, and early Crohn's. There is no evidence of chronic colitis, granulomas or dysplasia 05/2023 CAPSULE ENDOSCOPY SHOWED: Findings: Lower esophagus looked normal, stomach with granular mucosa and patchy erythema consistent with chronic gastritis small bowel entered at 2 hr 36 min min. Mucosa well visualized and appeared normal, no masses, lesions or ulcers seen. cecum entered at 4 hr 44 min and colonic mucosa looked normal Conclusion: chronic gastritis, other santiago neg small bowel study 06/15/22 EGD SHOWED:ESOPHAGUS: Tortuous esophagus with increased tertiary contractions without stricture or ring.?GE junction at 36 cms. No esophagitis or Austin's. STOMACH: Moderate diffuse gastric erythema - no ulcers were seen. Biopsies were obtained from gastric antrum and body. DUODENUM: Normal - biopsied to check for celiac sprue Plan:? Further evaluation with a Duplex US to rule out small bowel ischemia Oden of Dicyclomine prn while awaiting further workup. BIOPSIES SHOWED: A.? Small bowel, biopsy:? Small bowel mucosa with preserved villi and no specific change; no evidence of celiac disease. B.? Gastric antrum, biopsy:? Chronic Helicobacter gastritis with minimal activity and focal intestinal metaplasia; negative for dysplasia.? C.? Gastric body, biopsy:? Chronic Helicobacter gastritis with minimal activity; negative for intestinal metaplasia and dysplasia. 03/24/21 COLONOSCOPY SHOWED:No polyps were detected.Random biopsies were obtained from the right and left colonModerate to severe diverticulosis seen in the entire colon Of note pt denies additional episodes of fecal incontinence. Plan:? Patient has an appointment on 04/20/21 in the GI Clinic with Ruth Roman M.D. Repeat Colonoscopy in 10 years if biopsies are normal. A handout on diverticulosis was were given in the discharge area BIOPSIES SHOWED: A.? Colon, right, biopsy:? Colonic mucosa within normal limits. B.? Colon, left, biopsy:? Colonic mucosa within normal limits. COMMENT: Diagnostic features of microscopic colitis are not seen. 08/2019:? Colonoscopy Findings:Edema, erythema with friable appearing mucosa and scattered ulcerations from 10to 30 cms - random biopsies obtained. Colon inflammation can be due to ischemic colitis or stercoral ulcers related to constipation and irritation of the colon from hard stools. No polyps were detected Moderate to severe diverticulosis seen in the left colon. Plan: Await pathology results. Regular diet today. Start Miralax once daily for constipation. Continue IV antibiotics x 24 hours and then switch to PO antibiotics in the am for another 3 days. Patient to be scheduled for a FU appointment in the GI Clinic with Ruth Roman M.D. in 1-2 weeks. Above findings were reviewed with the patient. BIOPSIES SHOWED: Colon, left, biopsies: Colonic mucosa with focal superficial epithelial sloughing, hemorrhage and hyalinization possibly representing early ischemic colitis;? negative for dysplasia/malignancy. TODAY'S VISIT: Patient follow up from ED due bloody diarrhea. Patient cc: abdominal pain, nauseas, diarrhea, swallowing problems with sticky food and her saliva. I am in pain with nausea and diarrhea. Stomach really hurts Taking mesalamine 3 tablets daily Noted diarrhea since last night - 2 BMs last night and one this am. Had hard stools prior to that. Prescribed Trulance and was not covered by her insurance. Has a BM once a week when she is constipated. Started on MTX 15 mg once a week for RA by her Handstitching Machine Armhole Feller PAST VISITS: I havent been feeling good since I left the hospital Generalized body aches, diarrhea and constipation. Has constipation for a week and then diarrhea for 2 days. Taking Amitiza daily for constipation. Seen by Manual Equipment Mechanic and was told she had stage 3 kidney disease Patient cc: abdominal pain and bloating, between diarrhea and constipation and some swallowing problems on and off. Continues to have nausea, bloating, gas and poor appetite Notes early satiety and denies vomiting. Hx of long standing DM and advised to schedule a GES Can go days without a BM - has a BM every 4-5 days. Stool is soft and mushy and hard to pass. Lately every time she coughs, she feels pressure and has to go to the bathroom and passes a small piece of stool. Takes Amitiza daily and colace prn Seen at [facility] on 07/24/23 with abd pain and rectal bleeding CT scan was done and pt informed she had diverticulitis and treated with PO antibiotics (amox) for a week. Seen again on 08/10 at [facility] and had repeat CT scan which showed colitis and kidney stones Prescribed amoxicillin x 10 days and oxycodone and has not passed the kidney stone yet. Lab results reviewed - IBD serology suggestive of Crohn's disease Pt seen at [facility] ED on 05/16/23 with chest pain and dubois was negative. Pt is on sulfasalazine for RA which is on hold to see if nausea gets better. 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 Unable to take biologics for RA due to COPD. Tried Humira and had to be stopped due to facial swelling. Tried Embril and was stopped due to worsening COPD. She was told by her Handstitching Machine Armhole Feller that she is unable to use biologics I have been feeling horrible Has dizziness and nausea x past 3 weeks. Went to bed Saturday night and noted pain in the pit of the stomach. Had chills, felt hot and cold and had sweating and generalized itching Stow better yesterday and had diarrhea. Feels a little better today. Has been taking Marijuana once a day for nausea for the past 2 weeks and it helps the nausea. Hospitalized at [facility] from 01/23 to 01/26/23 with an episode of ischemic colitis and evaluated by Flex Sig Pt completed course of antibiotics prescribed at discharge. Pt complains of a nausea, abdominal pain, sour stomach and diarrhea with black stools for the past 3 days. Having 4 pudding like stools a day. Abd pain comes and goes. Pt complains of sweating and denies fevers. Pt complains of weakness and dizziness. Denies hx of PUD, aspirin or NSAID use. Took peptobismol 1 tablet last Saturday which did not help the pain. Takes Ondansetron for nausea which has not been helpful. Wt loss from 140 in Dec, 2021 to 115 lbs since she is eating less. Hospitalized with NSTEMI in Dec, 2021 and had 2 stents. Taking aspirin and Brilinta twice a day Had an MRI on the brain and changes noted on the right and left side Waiting to see a Neurologist. Has COPD and asthma. 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 T2DM (type 2 diabetes mellitus) Acute respiratory distress Hospital discharge follow-up Tendonitis of ankle or foot Colitis Cough Anxiety CAD (coronary artery disease) HLD (hyperlipidemia) HTN (hypertension) T2DM (type 2 diabetes mellitus) COPD exacerbation Hyperkalemia Atherosclerotic cardiovascular disease GERD (gastroesophageal reflux disease) CVA (cerebral vascular accident) Breast pain, right Rash Bloody diarrhea PAD (peripheral artery disease) Hyperlipidemia LDL goal <100 COPD (chronic obstructive pulmonary disease) Infiltrating ductal carcinoma of left breast, stage 2 Insomnia Dyslipidemia Bipolar 1 disorder, depressed Cough Restrictive airway disease Hypothyroid IDDM (insulin dependent diabetes mellitus) Vitamin D deficiency Osteoporosis Hyperparathyroidism Thyroid nodule Depression Fibromyalgia Seropositive rheumatoid arthritis Reactive airways dysfunction syndrome Allergic rhinitis Irritable bowel Anxiety Bronchial asthma Diabetes type 2, uncontrolled Hypertension Surgical History Hx of sigmoidoscopy History of bronchoscopy Hx of endoscopy H/O cardiac catheterization History of lumpectomy of left breast History of pubovaginal sling History of esophagogastroduodenoscopy (EGD) History of tubal ligation History of colonoscopy History of bunionectomy of both great toes H/O: hysterectomy Family History Mother Diabetes HTN (hypertension) Uterus cancer Malignant tumor of head Breast cancer Father Diabetes HTN (hypertension) CVD (cardiovascular disease) Heart problem Maternal Aunt Breast cancer Brother Myocardial infarction S/P CABG x 4 Family/Other FH: mental illness Family/Other Lung cancer Other Mental health disorder Social History Household Members: Family Household Members Other:: sister Housing: House Are you a primary special needs child caregiver to a significant other at home: No Do you presently have visiting nurse or other home services: Yes (sister is CORPORATE CLAIMS EXAMINER) Unable to assess alcohol history related to: Unknown Alcohol intake: never Patient Tobacco Use Status: Current everyday Tobacco user Tobacco use type: Cigarette Cigarette Packs Per Day: 0.5 Cigarettes Per Day: 2 Years Smoked: 48 e-Cigarette/Vaping Use: Never Used Second Hand Smoke Exposure: No Substance Use Type: Marijuana Advance Directives Date on File: 12/22/21 service: No Current occupational status: disabled Current occupation: rt handed Cognitive needs: No Hearing needs: No Vision needs: Yes Review of Systems Const All systems reviewed & are unremarkable except as noted in HPI and below Physical Exam Vital Signs: Last Vital Signs Pulse 81 01/23/24 08:02 BP 136/69 01/23/24 08:02 BMI result Body Mass Index 21.5 Const General: no acute distress Nutritional Appearance: average body habitus Orientation/consciousness: patient oriented x3 Limitations: ambulation with cane HEENT Head: Yes normal to inspection Ears: hearing grossly normal bilaterally Eyes Sclerae: sclerae normal Pupils: Equal, round and reactive pupils present Neck Neck: Yes normal visual inspection Chest Chest palpation & inspection: normal inspection of the chest Resp Effort & Inspection: normal respiratory effort Auscultation: clear to auscultation bilaterally Cardio Palpation: normal PMI Rate: regular rate Rhythm: regular rhythm Heart sounds: S1 normal heart sound present, S2 normal heart sound present and no murmurs GI Palpation (GI): Soft to palpation, nontender and No hepatosplenomegaly present Auscultation: normal bowel sounds Rectal Exam - Female: deferred Skin General skin exam: no rashes or lesions noted Neuro General: patient oriented x3, gait normal and moves all extremities Cranial nerves: Yes Equal, round and reactive pupils present Psych Appearance: grossly normal Mental Status: mental status grossly normal Assessment & Plan Assessment & Plan (1) Gastroparesis: Code(s): K31.84 - Gastroparesis (2) Colitis: Code(s): K52.9 - Noninfective gastroenteritis and colitis, unspecified (3) History of ischemic colitis: Code(s): Z87.19 - Personal history of other diseases of the digestive system (4) History of Helicobacter pylori infection: Code(s): Z86.19 - Personal history of other infectious and parasitic diseases (5) Vitamin D deficiency: Code(s): E55.9 - Vitamin D deficiency, unspecified (6) Chronic constipation: Code(s): K59.09 - Other constipation Plan 63 YF with rheumatoid arthritis--[place] [facility], COPD, fibromyalgia, asthma, Elevated levels of transaminases? & lactic acid dehydrogenase, Hepatic steatosis Thalamic pain syndrome,? H. pylori infection - treated, IBS (irritable bowel syndrome), TIA'S, urinary incontinence, chronic bronchitis, anxiety, depression, diabetes mellitus, left breast? cancer. Patient followed in GI for GERD and long standing constipation?likely due to IBS with constipation/ slow transit due to medications. Partial? improvement with Senna 1-2 tablet at? bedtime. Patient was diagnosed with Helicobacter pylori gastritis on EGD in?06/2018 and was treated with triple therapy. 06/2021 FU stool antigen for H pylori was negative Pt was advised to start Pantoprazole twice daily for GERD She has a hx of dysphagia likely due to esophageal motility disorder - no stricture or EOE noted on past EGD. Pt has been followed recently for upper abdominal pain, nausea and vomiting with decreased PO intake and wt loss 06/15/22 EGD was performed in findings as noted above Pt was advised to use a Foam Wedge at night and take famotidine at bedtime for nighttime reflux symptoms. If symptoms persist she may need further evaluation with Esophageal manometry and pH testing prior to considering fundoplication. 01/10/23 Pt seen with worsening symptoms, stopped taking Pantoprazole 2 months ago and advised to resume and take Famotidine prn for breakthrough symptoms 02/01/23 Pt complains of abd pain, bloating with diarrhea and black stools x past 3 days with weakness and dizziness Patient was advised to go to [facility] ER for further evaluation with labs and repeat CT scan (for Fu of ischemic colitis) Pt had a stable Hct and stool occult blood was negative 04/05/23 Pt advised to have labs and schedule an abd US with doppler to rule out mesenteric ischemia which was negative Stool calprotectin was borderline at 92. C1q, C1 estrase inhibitor protein and C4 were normal 04/29/23 IBD serologies were suggestive of Crohn's disease 06/03/23 Capsule Endoscopy showed: Conclusion: chronic gastritis, other santiago neg small bowel study . 08/16/23 Pt advised to start Lialda 2.4 grams daily for suspected Crohn's disease (Abd pain, nausea, fecal calprotectin of 92 and IBD serologies positive for Crohn's disease) Referral was sent to urology for follow-up of kidney stones Records requested from [facility] ER visit on 08/10/23 09/19/23 Continues to have nausea, bloating, gas and poor appetite Notes early satiety and denies vomiting. Hx of long standing DM. Pt advised to increase Amitiza to 16 mcg twice a day and to schedule a GES 01/23/24 Prescribed Trulance and was not covered by her insurance. Has a BM once a week when she is constipated. Started on MTX 15 mg once a week for RA by her Handstitching Machine Armhole Feller which should help her Crohn's disease Complains of pain and tinging in her left foot and has a FU appt with her PCP on 01/29/24 Fu in 4 months Medications: New linaclotide (Linzess) 145 mcg PO QAM 30 days 30 caps 3RF K59.09 - Other constipation Quality Reporting (2019) Adult (CMS 138/01/09/69) Smoking risk assessment performed?: Yes Patient Tobacco Use Status: Current everyday Tobacco user Coding Level of Care Code Est Pt Level 4 (68322) Diagnoses Gastroparesis K31.84 Colitis K52.9 History of ischemic colitis Z87.19 History of Helicobacter pylori infection Z86.19 Vitamin D deficiency E55.9 Chronic constipation K59.09 Time Spent (min) 23
[2024-01-23 08:02] VITALS: BP 136/69; PULSE 81; BMI 21.5
== END 2024-01-23 08:43 | disposition home or self-care (01) ==
PROVIDERS: PCP Internal Medicine; Visit Provider Internal Medicine Gastroenterology
DX: K31.84 Gastroparesis (principal); K52.9 Noninfective gastroenteritis and colitis, unspecified; Z87.19 Personal history of other diseases of the digestive system; Z86.19 Personal history of other infectious and parasitic diseases; E55.9 Vitamin D deficiency, unspecified; K59.09 Other constipation
CPT/HCPCS: 99214

== ENCOUNTER → 2024-01-23 07:45 | Outpatient (BNVA) | payer OTHER, MEDICAID, SELFPAY | PROVIDERS: PCP Internal Medicine; Visit Provider Internal Medicine Gastroenterology | DX: K31.84 Gastroparesis (principal); K52.9 Noninfective gastroenteritis and colitis, unspecified; K59.09 Other constipation; E55.9 Vitamin D deficiency, unspecified; Z87.19 Personal history of other diseases of the digestive system; Z86.19 Personal history of other infectious and parasitic diseases | CPT/HCPCS: 99212 ==

== ENCOUNTER 2024-01-27 13:44 | Outpatient (AMB) | payer OTHER, MEDICAID, SELFPAY ==
[2024-01-27 13:50] VITALS: BP 130/76; PULSE 105; BMI 21.7
--- NOTE | 2024-01-27 13:50 | A.OFFVIS_ITS ---
Intake Vital Signs 01/27/24 13:50 Height 4 ft 10 in Weight 104 lb 0.931 oz BMI 21.7 BP 130/76 Blood Pressure Location Lt brachial Position Sitting Pulse 105 H Intake Visit Reasons: 4 mth f/up Intake Note: 4 month follow up Contract Paralegal Required: No Accompanied by: Self / Same As Patient Allergies dog dander [DOGS] Allergy (Intermediate, Verified 01/27/24 13:53) Respiratory distress shellfish derived Allergy (Intermediate, Verified 01/27/24 13:53) Hives methylprednisolone Allergy (Verified 01/27/24 13:53) Rash etanercept [From Enbrel] Adverse Reaction (Intermediate, Verified 01/27/24 13:53) Facial Swelling ibuprofen [Ibuprofen] Adverse Reaction (Intermediate, Verified 01/27/24 13:53) STOMACH UPSET, abdominal pain, nausea and vomiting metformin Adverse Reaction (Intermediate, Verified 01/27/24 13:53) Diarrhea metronidazole [From FLAGYL] Adverse Reaction (Intermediate, Verified 01/27/24 13:53) Diarrhea prednisone Adverse Reaction (Intermediate, Verified 01/27/24 13:53) hallucinations, higher than 20 Medication List - Last Reconciled 01/27/24 by Joseph Salmon MD albuterol sulfate 90 mcg/actuation 2 inhalations inhalation Q4H PRN aspirin 81 mg PO DAILY 90 days blood sugar diagnostic (FreeStyle Lite Strips) Use 1 test strip three times a day [clamp on tub safety rail As directed] codeine-guaifenesin 10-100 mg/5 mL 10 mL PO Q8-12H PRN dulaglutide (Trulicity) 1.5 mg (0.5 mL) subcut TH@0900 [ez engraver letter bed assist support As directed] famotidine 20 mg PO BEDTIME 90 days npsivflkper-uhshkufpl-zovxakvh 100-62.5-25 mcg (Trelegy Ellipta) 1 inh inhalation DAILY folic acid 1 mg PO DAILY ipratropium bromide 2.5 mL inhalation Q6H PRN lancets (FreeStyle Lancets) Use 1 lancet once a day letrozole 2.5 mg PO DAILY levalbuterol tartrate 45 mcg/actuation 2 puffs inhalation Q4-6H PRN 30 days linaclotide (Linzess) 145 mcg PO QAM 30 days mesalamine 3.6 grams (3 x 1.2 gram) PO DAILY 30 days methotrexate sodium 15 mg (6 x 2.5 mg) PO QWEEK pantoprazole 40 mg PO BID pen needle, diabetic (Comfort EZ Pen [place]) Use 1 pen needle 6 times a day prednisone Take 4 pills per day x 7 days, 3 pills per day x 7 days , 2 pills per day x 14 days. pregabalin (Lyrica) 200 mg PO BID sennosides-docusate sodium 8.6-50 mg (Senna with Docusate Sodium) 2 tab-caps (2 x 8.6-50 mg) PO BEDTIME 60 days Shower Chair As directed trazodone 100 mg PO BEDTIME 90 days walker with seat HPI HPI Comments History of Present Illness Details 63-year-old female who has known history of coronary disease with previous PCI to left circumflex artery in December 2021, hypertension, hyperlipidemia, type 2 diabetes, COPD and fibromyalgia. She is returning for follow-up. She was seen last time with chest discomfort. There was some dyspnea on exertion also. She underwent stress echocardiogram which she was able to exercise to 7 metabolic equivalents without any EKG changes or wall motion abnormalities. 11/2022: Unfortunately had influenza in [place] and is recovering from that. Still having significant shortness of breath and continues to have mild wheezes. She just finished her prednisone taper yesterday. She is having upper abdominal pain. Denying any chest discomfort on follow-up. No peripheral edema. No obvious signs of heart failure. 06/10/23: She returns for follow-up. Enmanuel rosales is saying she has been experiencing significant shortness of breath and has been using the inhaler and nebulizers quite frequently. She also had some chest pain and went to emergency department and was ruled out. She has stress testing recently which was normal. She is saying that depending on whether her breathing changes. If it is humid and hot outside she gets really out of breath. She is still smoking 2 cigarettes per day. Overall from cardiovascular point of view she has stable angina and mostly has shortness of breath due to COPD. 09/23/23: She returns for follow-up. Enmanuel rosales underwent stress testing where she had hypotensive response to exercise. She was taken for cardiac catheterization which revealed stable disease with no significant LAD or RCA stenosis. Her previous circumflex stents were patent. She returns for follow-up and continues to smoke. She continues to have some sharp non anginal chest pains. She is following with pulmonology for COPD. She was on Wellbutrin which was stopped because she had history of seizures. We discussed about starting Chantix and she is agreeable. 01/27/2024: She returns for follow-up. S he could not tolerate Chantix. She is still trying and is currently on 1 cigarette per day. She has Crohn's disease and has significant GI issues and unable to eat and drink well. She has been noticed to be tachycardic and and is saying that she is unable to eat and drink well. She will discuss this with GI. She also has left ankle pain and some burning sensation on the left calf. She also has a bandlike burning sensation in the thoracic region radiating to the front. No rashes noted by her. She has questions that are her symptoms due to amyloidosis as she has Googled her symptoms. 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 T2DM (type 2 diabetes mellitus) Acute respiratory distress Hospital discharge follow-up Tendonitis of ankle or foot Colitis Cough Anxiety CAD (coronary artery disease) HLD (hyperlipidemia) T2DM (type 2 diabetes mellitus) COPD exacerbation Hyperkalemia Atherosclerotic cardiovascular disease GERD (gastroesophageal reflux disease) CVA (cerebral vascular accident) Breast pain, right Rash Bloody diarrhea PAD (peripheral artery disease) Hyperlipidemia LDL goal <100 COPD (chronic obstructive pulmonary disease) Infiltrating ductal carcinoma of left breast, stage 2 Insomnia Dyslipidemia Bipolar 1 disorder, depressed Cough Restrictive airway disease Hypothyroid IDDM (insulin dependent diabetes mellitus) Vitamin D deficiency Osteoporosis Hyperparathyroidism Thyroid nodule Depression Fibromyalgia Seropositive rheumatoid arthritis Reactive airways dysfunction syndrome Allergic rhinitis Irritable bowel Anxiety Bronchial asthma Diabetes type 2, uncontrolled Hypertension Surgical History Hx of sigmoidoscopy History of bronchoscopy Hx of endoscopy H/O cardiac catheterization History of lumpectomy of left breast History of pubovaginal sling History of esophagogastroduodenoscopy (EGD) History of tubal ligation History of colonoscopy History of bunionectomy of both great toes H/O: hysterectomy Family History Mother Diabetes HTN (hypertension) Uterus cancer Malignant tumor of head Breast cancer Father Diabetes HTN (hypertension) CVD (cardiovascular disease) Heart problem Maternal Aunt Breast cancer Brother Myocardial infarction S/P CABG x 4 Family/Other FH: mental illness Family/Other Lung cancer Other Mental health disorder Social History Household Members: Family Household Members Other:: sister Housing: House Are you a primary reproductive healthcare assistant to a significant other at home: No Do you presently have visiting nurse or other home services: Yes (sister is FRIT MIXER) Unable to assess alcohol history related to: Unknown Alcohol intake: never Patient Tobacco Use Status: Current everyday Tobacco user Tobacco use type: Cigarette Cigarette Packs Per Day: 0.5 Cigarettes Per Day: 2 Years Smoked: 48 e-Cigarette/Vaping Use: Never Used Second Hand Smoke Exposure: No Substance Use Type: Marijuana Advance Directives Date on File: 12/22/21 service: No Current occupational status: disabled Current occupation: rt handed Cognitive needs: No Hearing needs: No Vision needs: Yes Review of Systems Const Denies weakness ENT Denies dizziness Card Denies chest pain, Denies chest pain with activity, Denies syncope, Denies rapid heart rate, Denies pedal edema, Denies edema, Denies leg edema, Denies lightheadedness, Denies palpitations, Denies dyspnea on exertion and Denies orthopnea Resp Denies cough and Denies dyspnea on exertion GI Denies hematochezia and Denies change in stool character Musc Denies abnormal gait, Denies muscle cramps, Denies muscle weakness, Denies numbness, Denies radiating pain into limb and Denies tingling Neuro Denies abnormal gait, Denies dizziness, Denies syncope, Denies numbness, Denies tingling and Denies weakness Endo Denies palpitations Physical Exam Vital Signs: Last Vital Signs Pulse 105 H 01/27/24 13:50 BP 130/76 01/27/24 13:50 BMI result Body Mass Index 21.7 GENERAL APPEARANCE: in no acute distress, pleasant. NECK: no carotid bruit, no jugular venous distention. SKIN: no suspicious lesions, warm and dry. HEART: no murmurs, regular rate and rhythm. Tachycardic. LUNGS: Lungs clear to auscultation. ABDOMEN: soft. EXTREMITIES: no edema. PERIPHERAL PULSES: equal. NEUROLOGIC: No gross deficits, AAO X 3 Assessment & Plan Assessment & Plan (1) Foot pain, left: Code(s): M79.672 - Pain in left foot (2) HTN (hypertension): Code(s): I10 - Essential (primary) hypertension Plan 63 year female who is presenting for follow-up. She has been cutting back on smoking and is currently at 1 cigarette per day. I have congratulated her and encouraged her to stop smoking. She was given a script for Chantix but could not tolerate it. She has Crohn's disease and has significant GI issues and has not been eating and drinking well and I think she is somewhat dehydrated at this point. She is little tachycardic on examination. I have reassured her that it is very unlikely that she has amyloidosis. She has tenderness over the left ankle and left foot. She is denying any injury to the foot. I will get an x- ray to make sure she does not have a hairline fracture. I have advised her to discuss with her primary care physician about the burning sensation which is radiating in a dermatomal pattern from back to the front of abdomen. She does not have any rash of herpes zoster currently. No chest discomfort on follow-up. Dyspnea stable. Dyspnea was due to lung disease due to smoking which she is really working hard on quitting. Thank you for allowing me to participate in the care of your patient. Please feel free to contact me if you have any questions. Orders: Orders XR ankle LT 2V Today M79.672 - Pain in left foot Quality Reporting (2019) Adult ([facility] 138//) Smoking risk assessment performed?: Yes Patient Tobacco Use Status: Current everyday Tobacco user Coding Level of Care Code Est Pt Level 4 (61669) Diagnoses Foot pain, left M79.672 HTN (hypertension) I10
== END 2024-01-27 14:22 | disposition home or self-care (01) ==
PROVIDERS: PCP Internal Medicine; Visit Provider Internal Medicine Cardiovascular Disease
DX: M79.672 Pain in left foot (principal); I10 Essential (primary) hypertension
CPT/HCPCS: 99214

== ENCOUNTER 2024-01-27 13:44 | Outpatient (REF) | payer OTHER, SELFPAY ==
--- NOTE | ~2024-01-27 | XR_ITS ---
EXAMINATION: XR ANKLE, LEFT CLINICAL INFORMATION: Pain in left foot. Radiopaque marker placed by technologist to indicate area of pain as indicated by the patient lateral to the lateral malleolus. COMPARISON: Left ankle radiographs of 12/13/2020. TECHNIQUE: AP, lateral, and mortise views of the left ankle. FINDINGS: Small plantar calcaneal spur. Vascular calcifications. Ankle joint effusion. Alignment preserved. No displaced fracture of the lateral malleolus appreciated. Talar dome and ankle mortise preserved. XR/XR ankle LT 2V IMPRESSION: 1. Ankle joint effusion. No displaced fracture of the lateral malleolus appreciated. 2. Recommend follow up imaging in 10-14 days if fracture is suspected.
== END 2024-01-27 13:45 | disposition home or self-care (01) ==
LOC: HO.XRAY 13:44
PROVIDERS: PCP Internal Medicine; Visit Provider Internal Medicine Cardiovascular Disease
DX: M79.672 Pain in left foot (principal); I10 Essential (primary) hypertension; F17.210 Nicotine dependence, cigarettes, uncomplicated; Z79.899 Other long term (current) drug therapy
CPT/HCPCS: 73600; 99212

== ENCOUNTER 2024-01-29 12:39 | Outpatient (AMB) | payer OTHER, SELFPAY ==
--- NOTE | 2024-01-29 12:43 | A.OFFPC_ITS ---
Vital Signs 01/29/24 12:44 Height 4 ft 10 in Weight 102 lb BMI 21.3 BP 120/70 Blood Pressure Location Lt brachial Position Sitting Intake Visit Reasons: possible shingles/ burning sensation on LT side Intake Note: Patient here c/o tingling sensation on right side back radiating to the from, left side foot/leg pain and burning sensation Social And Political Studies Professor Required: No Accompanied by: Self / Same As Patient Allergies dog dander [DOGS] Allergy (Intermediate, Verified 01/29/24 12:57) Respiratory distress shellfish derived Allergy (Intermediate, Verified 01/29/24 12:57) Hives methylprednisolone Allergy (Verified 01/29/24 12:57) Rash etanercept [From Enbrel] Adverse Reaction (Intermediate, Verified 01/29/24 12:57) Facial Swelling ibuprofen [Ibuprofen] Adverse Reaction (Intermediate, Verified 01/29/24 12:57) STOMACH UPSET, abdominal pain, nausea and vomiting metformin Adverse Reaction (Intermediate, Verified 01/29/24 12:57) Diarrhea metronidazole [From FLAGYL] Adverse Reaction (Intermediate, Verified 01/29/24 12:57) Diarrhea prednisone Adverse Reaction (Intermediate, Verified 01/29/24 12:57) hallucinations, higher than 20 Medication List - Last Reconciled 01/29/24 by Adela Wasserman MD albuterol sulfate 90 mcg/actuation 2 inhalations inhalation Q4H PRN aspirin 81 mg PO DAILY 90 days blood sugar diagnostic (FreeStyle Lite Strips) Use 1 test strip three times a day [clamp on tub safety rail As directed] codeine-guaifenesin 10-100 mg/5 mL 10 mL PO Q8-12H PRN dulaglutide (Trulicity) 1.5 mg (0.5 mL) subcut TH@0900 [ez sales record clerk bed assist support As directed] famotidine 20 mg PO BEDTIME 90 days yymsjyickhn-sboikyydj-pmpygbjx 100-62.5-25 mcg (Trelegy Ellipta) 1 inh inhalation DAILY folic acid 1 mg PO DAILY ipratropium bromide 2.5 mL inhalation Q6H PRN lancets (FreeStyle Lancets) Use 1 lancet once a day letrozole 2.5 mg PO DAILY levalbuterol tartrate 45 mcg/actuation 2 puffs inhalation Q4-6H PRN 30 days linaclotide (Linzess) 145 mcg PO QAM 30 days mesalamine 3.6 grams (3 x 1.2 gram) PO DAILY 30 days methotrexate sodium 15 mg (6 x 2.5 mg) PO QWEEK pantoprazole 40 mg PO BID pen needle, diabetic (Comfort EZ Pen [place]) Use 1 pen needle 6 times a day pregabalin (Lyrica) 200 mg PO BID sennosides-docusate sodium 8.6-50 mg (Senna with Docusate Sodium) 2 tab-caps (2 x 8.6-50 mg) PO BEDTIME 60 days Shower Chair As directed trazodone 100 mg PO BEDTIME 90 days walker with seat Tobacco use date assessed: 11/27/23 Dental Screening Dental Screen Date: 01/29/24 Did you have a dental visit in the last 12 months?: Yes Did you have a dental problem in the last 6 months where you did not have access to dental care?: No Was dental information given to patient?: Patient has dentist HPI HPI Comments History of Present Illness Details This is a 63-year-old female with diabetes mellitus type 2, hyperlipidemia and COPD that complains of left leg pain that started about 2 weeks ago. The pain is burning like in quality and bothers her constantly. She is on Lyrica. Blood glucose has been stable as per patient. Lipid panel will be order. COPD is follow by pulmonology and has not significantly change with medications. Will order ultrasound of the leg to rule out DVT. She denies any rash. 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 T2DM (type 2 diabetes mellitus) Acute respiratory distress Hospital discharge follow-up Tendonitis of ankle or foot Colitis Cough Anxiety CAD (coronary artery disease) HLD (hyperlipidemia) T2DM (type 2 diabetes mellitus) COPD exacerbation Hyperkalemia Atherosclerotic cardiovascular disease GERD (gastroesophageal reflux disease) CVA (cerebral vascular accident) Breast pain, right Rash Bloody diarrhea PAD (peripheral artery disease) Hyperlipidemia LDL goal <100 COPD (chronic obstructive pulmonary disease) Infiltrating ductal carcinoma of left breast, stage 2 Insomnia Dyslipidemia Bipolar 1 disorder, depressed Cough Restrictive airway disease Hypothyroid IDDM (insulin dependent diabetes mellitus) Vitamin D deficiency Osteoporosis Hyperparathyroidism Thyroid nodule Depression Fibromyalgia Seropositive rheumatoid arthritis Reactive airways dysfunction syndrome Allergic rhinitis Irritable bowel Anxiety Bronchial asthma Diabetes type 2, uncontrolled Hypertension Surgical History Hx of sigmoidoscopy History of bronchoscopy Hx of endoscopy H/O cardiac catheterization History of lumpectomy of left breast History of pubovaginal sling History of esophagogastroduodenoscopy (EGD) History of tubal ligation History of colonoscopy History of bunionectomy of both great toes H/O: hysterectomy Family History Mother Diabetes HTN (hypertension) Uterus cancer Malignant tumor of head Breast cancer Father Diabetes HTN (hypertension) CVD (cardiovascular disease) Heart problem Maternal Aunt Breast cancer Brother Myocardial infarction S/P CABG x 4 Family/Other FH: mental illness Family/Other Lung cancer Other Mental health disorder Social History Household Members: Family Household Members Other:: sister Housing: House Are you a primary child care assistant to a significant other at home: No Do you presently have visiting nurse or other home services: Yes (sister is HEAVY MACHINERY ASSEMBLER) Unable to assess alcohol history related to: Unknown Alcohol intake: never Patient Tobacco Use Status: Current everyday Tobacco user Tobacco use type: Cigarette Cigarette Packs Per Day: 0.5 Cigarettes Per Day: 2 Years Smoked: 48 e-Cigarette/Vaping Use: Never Used Second Hand Smoke Exposure: No Substance Use Type: Marijuana Advance Directives Date on File: 12/22/21 service: No Current occupational status: disabled Current occupation: rt handed Cognitive needs: No Hearing needs: No Vision needs: Yes Questionnaire Thrive Questionnaire Date Thrive assessed: 12/12/23 FLAVIA-7 AMB Questionnaire FLAVIA-7 Date FLAVIA - 7 assessed: 11/27/23 Source: Developed by Drs. Hernandez Norris, Gissell Solorzano, Gilmar Szymanski and colleagues, with an educational chris from [employer]. Review of Systems Const All systems reviewed & are unremarkable except as noted in HPI and below Eyes Reports no additional complaints, Denies change in vision and Denies other visual disturbances Card Denies chest pain at rest, Denies chest pain with activity, Denies edema, Denies irregular heart rhythm, Denies claudication, Denies dyspnea, Denies dyspnea on exertion, Denies orthopnea, Denies paroxysmal nocturnal dyspnea and Denies slow heart rate Resp Denies cough, Denies dyspnea and Denies dyspnea on exertion GI Denies abdominal pain, Denies change in bowel habits, Denies excessive flatus, Denies nausea and Denies vomiting Denies urinary incontinence, Denies urinary hesitancy and Denies urinary urgency Musc Denies abnormal gait, Denies atrophy, Denies deformity and Denies limited range of motion Skin/Breast Denies bleeding lesions, Denies changing lesions and Denies rash Neuro Denies abnormal gait and Denies lack of coordination Physical exam (Primary Care) Vital Signs: Last Vital Signs BP 120/70 01/29/24 12:44 BMI result Body Mass Index 21.3 Tobacco/Smoking Status: Tobacco use Status Tobacco use date assessed 11/27/23 01/29/24 12:51 Patient Tobacco Use Status Current everyday Tobacco 01/29/24 12:51 Tobacco use type Cigarette 01/29/24 12:51 e-Cigarette/Vaping Use Never Used 01/29/24 12:51 Thrive Assessment: Date of Thrive Assessment Date Thrive assessed 12/12/23 01/29/24 12:51 Eyes General: appearance normal, both eyes and all related structures Eyelids: Yes eyelids normal Conjunctivae: conjunctivae normal Neck Neck: Yes normal visual inspection and Yes supple Resp Effort & Inspection: normal respiratory effort Auscultation: clear to auscultation bilaterally Cardio Jugular venous distension: no JVD Rate: regular rate Rhythm: regular rhythm Heart sounds: S1 normal heart sound present and S2 normal heart sound present Extrem General: Yes full ROM Assessment and Plan Assessment & Plan (1) Diabetes mellitus: Code(s): E11.9 - Type 2 diabetes mellitus without complications Plan: Continue Trulicity. A1c goal is equal or less than 7%. (2) COPD (chronic obstructive pulmonary disease): Code(s): J44.9 - Chronic obstructive pulmonary disease, unspecified Qualifiers: COPD type: unspecified COPD Qualified Code(s): J44.9 - Chronic obstructive pulmonary disease, unspecified Plan: Continue inhalers. (3) HLD (hyperlipidemia): Code(s): E78.5 - Hyperlipidemia, unspecified Plan: Continue statins. LDL goal less than 70. (4) Left leg pain: Code(s): M79.605 - Pain in left leg Plan: Ultrasound of the leg order. Orders: Orders US venous duplex LE LT Today M79.605 - Pain in left leg Referrals Pain Management Referral M79.605 - Pain in left leg Coding Level of Care Code Est Pt Level 4 (83996) Diagnoses Diabetes mellitus E11.9 Chronic obstructive pulmonary disease, unspecified COPD type J44.9 COPD type: unspecified COPD HLD (hyperlipidemia) E78.5 Left leg pain M79.605 Time Spent (min) 21
[2024-01-29 12:44] VITALS: BP 120/70; BMI 21.3
== END 2024-01-29 13:13 | disposition home or self-care (01) ==
PROVIDERS: PCP Internal Medicine; Visit Provider Internal Medicine
DX: E11.9 Type 2 diabetes mellitus without complications (principal); J44.9 Chronic obstructive pulmonary disease, unspecified; E78.5 Hyperlipidemia, unspecified; M79.605 Pain in left leg
CPT/HCPCS: 99214

== ENCOUNTER 2024-01-29 13:51 | Outpatient (REF) | payer OTHER, SELFPAY ==
--- NOTE | ~2024-01-29 | US_ITS ---
EXAMINATION: US VENOUS ULTRASOUND WITH DOPPLER LOWER EXTREMITY, LEFT CLINICAL INFORMATION: Left leg pain. COMPARISON: None available. TECHNIQUE: Ultrasound of the deep veins is performed from the hip to the calf with compression sonography and color and pulse Doppler assessment. Spectral analysis with color-flow imaging is performed. FINDINGS: There is normal venous compression and respiratory variation and augmented flow. The visualized common femoral vein, superficial femoral vein, profunda femoral vein, popliteal vein, and the trifurcation region shows no evidence of deep venous thrombosis. There is no significant popliteal fossa cyst. f the patient's symptoms persist, followup ultrasound in 5 days 7 days might be of value to exclude proximal propagation from a non-visualized calf vein. US/US venous duplex LE LT IMPRESSION: No DVT demonstrated in the left lower extremity.
== END 2024-01-29 13:52 | disposition home or self-care (01) ==
LOC: HO.US 13:51
PROVIDERS: PCP Internal Medicine; Visit Provider Internal Medicine
DX: M79.605 Pain in left leg (principal)
CPT/HCPCS: 93971

== ENCOUNTER 2024-02-06 09:41 | Outpatient (AMB) | payer OTHER, SELFPAY ==
--- NOTE | 2024-02-06 09:43 | A.OFFVIS_ITS ---
Intake Vital Signs 02/06/24 09:56 Height 4 ft 10 in Weight 104 lb 3 oz BMI 21.8 BP 150/85 H Blood Pressure Location Lt brachial Position Sitting Pulse 100 Pulse Source Pulse Oximeter Pulse Oximetry (%) 98 Oxygen Delivery Method Room Air Intake Visit Reasons: Lower back pain Intake Note: Pain today 05/27 Lab Tester Required: No Accompanied by: Self / Same As Patient Allergies dog dander [DOGS] Allergy (Intermediate, Verified 02/06/24 10:00) Respiratory distress shellfish derived Allergy (Intermediate, Verified 02/06/24 10:00) Hives methylprednisolone Allergy (Verified 02/06/24 10:00) Rash etanercept [From Enbrel] Adverse Reaction (Intermediate, Verified 02/06/24 10:00) Facial Swelling ibuprofen [Ibuprofen] Adverse Reaction (Intermediate, Verified 02/06/24 10:00) STOMACH UPSET, abdominal pain, nausea and vomiting metformin Adverse Reaction (Intermediate, Verified 02/06/24 10:00) Diarrhea metronidazole [From FLAGYL] Adverse Reaction (Intermediate, Verified 02/06/24 10:00) Diarrhea prednisone Adverse Reaction (Intermediate, Verified 02/06/24 10:00) hallucinations, higher than 20 HPI HPI Comments History of Present Illness Details Alie is a very pleasant 63-year-old female who presents the office today for evaluation management of her left lower leg neuropathy and middle/lower back pain. Patient complaining of numbness, tingling, pins and needles of the left lower extremity starting laterally at the top of her calf and going down to the top of the foot. She also endorses pain to the right lower thoracic with burning, numbness and shooting pain around to her ruq abdomen. She reports both of the started approximately 1-1/2 months ago. She is chronically on Lyrica 400 mg twice daily and states that this is not helping her symptoms. Though she feels like she is becoming tolerant to the medication. She has no tried physical therapy, chiropractor, acupuncture, massage or injections. She did have an ultrasound of left lower extremity which was negative for DVT. X-ray of the left ankle was also performed which showed effusion of the joint otherwise negative for fracture dislocation. Patient has been applying heat with some improvement of her symptoms In terms of muscle damage condition is described as aching, numbness, pins and needles. Pain is negatively impacting patient's sleep, ability to perform activities of daily living and normal functioning. Pain today is rated as a 7/10, constant and worse at the end of the day. Of note patient has rheumatoid arthritis, she was recently restarted on methotrexate approximately 2 months ago. She reports the symptoms started very shortly after restarting the methotrexate. She has not reached out to rheumatology to discuss if this is a potential side effect of the medication. [facility] Medical History HTN (hypertension) halfway (current) use 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 T2DM (type 2 diabetes mellitus) Acute respiratory distress Hospital discharge follow-up Tendonitis of ankle or foot Colitis Cough Anxiety CAD (coronary artery disease) HLD (hyperlipidemia) T2DM (type 2 diabetes mellitus) COPD exacerbation Hyperkalemia Atherosclerotic cardiovascular disease GERD (gastroesophageal reflux disease) CVA (cerebral vascular accident) Breast pain, right Rash Bloody diarrhea PAD (peripheral artery disease) Hyperlipidemia LDL goal <100 COPD (chronic obstructive pulmonary disease) Infiltrating ductal carcinoma of left breast, stage 2 Insomnia Dyslipidemia Bipolar 1 disorder, depressed Cough Restrictive airway disease Hypothyroid IDDM (insulin dependent diabetes mellitus) Vitamin D deficiency Osteoporosis Hyperparathyroidism Thyroid nodule Depression Fibromyalgia Seropositive rheumatoid arthritis Reactive airways dysfunction syndrome Allergic rhinitis Irritable bowel Anxiety Bronchial asthma Diabetes type 2, uncontrolled Hypertension Surgical History Hx of sigmoidoscopy History of bronchoscopy Hx of endoscopy H/O cardiac catheterization History of lumpectomy of left breast History of pubovaginal sling History of esophagogastroduodenoscopy (EGD) History of tubal ligation History of colonoscopy History of bunionectomy of both great toes H/O: hysterectomy Family History Mother Diabetes HTN (hypertension) Uterus cancer Malignant tumor of head Breast cancer Father Diabetes HTN (hypertension) CVD (cardiovascular disease) Heart problem Maternal Aunt Breast cancer Brother Myocardial infarction S/P CABG x 4 Family/Other FH: mental illness Family/Other Lung cancer Other Mental health disorder Social History Household Members: Family Household Members Other:: sister Housing: House Are you a primary acute care nurse practitioner to a significant other at home: No Do you presently have visiting nurse or other home services: Yes (sister is [employer] ) Unable to assess alcohol history related to: Unknown Alcohol intake: never Patient Tobacco Use Status: Current everyday Tobacco user Tobacco use type: Cigarette Cigarette Packs Per Day: 0.5 Cigarettes Per Day: 2 Years Smoked: 48 e-Cigarette/Vaping Use: Never Used Second Hand Smoke Exposure: No Substance Use Type: Marijuana Advance Directives Date on File: 12/22/21 service: No Current occupational status: disabled Current occupation: rt handed Cognitive needs: No Hearing needs: No Vision needs: Yes Review of Systems Const All systems reviewed & are unremarkable except as noted in HPI and below Physical Exam Vital Signs: Last Vital Signs Pulse 100 02/06/24 09:56 BP 150/85 H 02/06/24 09:56 Pulse Ox 98 02/06/24 09:56 Oxygen Delivery Method Room Air 02/06/24 09:56 BMI result Body Mass Index 21.8 General: awake, alert, oriented. Answers questions appropriately. Fully engaged in examination. Skin: warm, dry, intact without rashes, wounds, lesions. HEENT: Normocephalic. Hearing intact. Cardiac: External chest normal in appearance. Respiratory: No cough, audible wheezing or stridor. Abdomen: without gross distension. MS: No obvious swelling or deformities. Decreased light touch sensation over left lateral calf, DTR intact, 2+ DP/PT pulses Tenderness over right lower thoracic midline vertebrae with reported burning, tingling, zapping with palpation from right thoracic vertebrae around to abdomen along the T7-T8-T9 distribution. Neurological: Oriented to person, place, time and situation. Thought process intact. No gait abnormalities appreciated. Psychiatric: Appropriate mood and affect. Good judgment and insight. Results Reviewed Results Reviewed: 01/29/24 ultrasound venous duplex Negative for DVT 01/27/24 XR/XR ankle LT 2V IMPRESSION: 1. Ankle joint effusion. No displaced fracture of the lateral malleolus appreciated. 2. Recommend follow up imaging in 10-14 days if fracture is suspected. Assessment & Plan Assessment & Plan (1) Lumbar degenerative disc disease: Code(s): M51.36 - Other intervertebral disc degeneration, lumbar region (2) Thoracic back pain: Code(s): M54.6 - Pain in thoracic spine (3) Left leg paresthesias: Code(s): R20.2 - Paresthesia of skin (4) Polyneuropathy: Code(s): G62.9 - Polyneuropathy, unspecified Plan Sosa is a very pleasant 63-year-old female who presented to the office today for evaluation management of her left lower leg neuropathy and right thoracic pain. X-ray thoracic spine and lumbar spine ordered EMG ordered for further evaluation of her left lower extremity neuropathy. Capsaicin-menthol topical patches ordered, apply to thoracic spine as needed Given patient's symptoms started very shortly after reinitiating therapy with m ethotrexate, she was advised to reach out to rheumatology to discuss if this could be a potential side effect of the medication. Discussed at length the patient's diagnosis and options for treatment including diagnostic interventional testing, steroid injections, peripheral nerve stimulation with Sprint, RFA and more permanent neuromodulation. Informational pamphlets provided. All questions and concerns have been answered and patient agrees with the plan. Follow up after EMG, sooner if needed. Orders: Orders XR thoracic spine 3V Today M54.6 - Pain in thoracic spine NE electromyogram (EMG) Today R20.2 - Paresthesia of skin XR lumbar spine 4V min Today M51.36 - Other intervertebral disc degeneration, lumbar region Medications: New capsaicin-menthol 0.025-1.25 % (Salonpas (capsaicin-menthol)) may leave on area for up to 8 hrs 1 patch topical DAILY 6 ea 4RF Quality Reporting (2019) Adult ([facility] 138/[birth year]/69) Smoking risk assessment performed?: Yes Patient Tobacco Use Status: Current everyday Tobacco user Coding Level of Care Code New Pt Level 4 (86766) Diagnoses Lumbar degenerative disc disease M51.36 Thoracic back pain M54.6 Left leg paresthesias R20.2 Polyneuropathy G62.9
[2024-02-06 09:56] VITALS: BP 150/85; PULSE 100; O2SAT 98; BMI 21.8
== END 2024-02-06 10:27 | disposition home or self-care (01) ==
PROVIDERS: PCP Internal Medicine; Visit Provider Registered Nurse Emergency
DX: M51.36 Other intervertebral disc degeneration, lumbar region (principal); M54.6 Pain in thoracic spine; R20.2 Paresthesia of skin; G62.9 Polyneuropathy, unspecified
CPT/HCPCS: 99204

== ENCOUNTER → 2024-02-06 09:41 | Outpatient (BNVA) | payer OTHER, SELFPAY | PROVIDERS: PCP Internal Medicine; Visit Provider Registered Nurse Emergency | DX: M51.36 Other intervertebral disc degeneration, lumbar region (principal); R20.2 Paresthesia of skin; G62.9 Polyneuropathy, unspecified | CPT/HCPCS: 99202 ==

== ENCOUNTER 2024-02-06 10:35 | Outpatient (REF) | payer OTHER, SELFPAY ==
--- NOTE | ~2024-02-06 | XR_ITS ---
EXAMINATION: XR THORACIC SPINE CLINICAL INFORMATION: Pain COMPARISON: 12/18/2022 TECHNIQUE: 3 views of the thoracic spine were obtained. FINDINGS: There is no fracture or bone destruction seen and the vertebral alignment is normal. There is no disc space narrowing. There is no abnormality of the paraspinal soft tissues. XR/XR thoracic spine 3V IMPRESSION: Unremarkable examination.
--- NOTE | ~2024-02-06 | XR_ITS ---
EXAMINATION: XR LUMBOSACRAL SPINE WITH OBLIQUES CLINICAL INFORMATION: Pain COMPARISON: 12/13/2020 TECHNIQUE: AP, both oblique, and lateral views of the lumbar spine. Lateral view of the lumbosacral junction. FINDINGS: The vertebral bodies and posterior elements are normal. The disc spaces are preserved and the vertebral alignment is normal. The paraspinal soft tissues are normal. XR/XR lumbar spine 4V min IMPRESSION: Unremarkable examination.
== END 2024-02-06 10:36 | disposition home or self-care (01) ==
LOC: HO.XRAY 10:35
PROVIDERS: PCP Internal Medicine; Visit Provider Registered Nurse Emergency
DX: M54.6 Pain in thoracic spine (principal); M51.36 Other intervertebral disc degeneration, lumbar region
CPT/HCPCS: 72072; 72110

== ENCOUNTER 2024-02-19 12:51 | Emergency (ER) | payer OTHER, SELFPAY ==
--- NOTE | ~2024-02-19 | CT_ITS ---
EXAMINATION: CT ABDOMEN AND PELVIS WITHOUT CONTRAST CLINICAL INFORMATION: Left flank pain COMPARISON: 12/11/2023 TECHNIQUE: Multidetector volumetric imaging was performed from the superior aspect of the liver through the pubic symphysis. Sagittal and coronal reformatted images were obtained on the technologist's workstation. This CT examination was performed using dose optimization techniques as appropriate, variously including the following: *Automated exposure control *Adjustment of mA and/or kV according to patient size (this includes techniques or standardized protocols for targeted exams where dose is matched to indication/reason for exam; i.e. 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 Vascular calcifications. LUNG BASES: Scattered atelectasis. Nonenlarged heart. No pericardial effusion. LIVER, GALLBLADDER, AND BILIARY TREE: The liver is normal in size, shape, and attenuation. No focal hepatic lesion or biliary ductal dilatation is present. The gallbladder is unremarkable with no evidence of radiopaque gallstones, gallbladder wall thickening, or obvious pericholecystic inflammatory changes. PANCREAS: Unremarkable. SPLEEN: Unremarkable. Splenule. ADRENAL GLANDS: Unremarkable. KIDNEYS AND URETERS: The kidneys are normal in size, shape, and attenuation. No hydronephrosis, hydroureter, or calculi seen. No perinephric stranding. BLADDER: Unremarkable. GASTROINTESTINAL TRACT: Decompressed stomach. Nonobstructive bowel pattern. Unremarkable appendix. Diverticulosis. Prominent hyperdense left hemicolonic descending colon diverticulum with surrounding inflammatory change, 3:47. ABDOMINAL WALL: No significant hernia is appreciated. LYMPH NODES: Nonspecific left femoral lymph nodes. No pathologic lymphadenopathy. VASCULAR: Atherosclerotic calcifications nonaneurysmal aorta. Likely eccentric calcification right common iliac artery resulting in hemodynamically significance analysis. Normal caliber inferior vena cava.. PELVIC VISCERA: No pelvic pathology recognized. OSSEOUS STRUCTURES: Unremarkable. CT/CT abdomen pelvis wo IV con IMPRESSION: Focal descending colonic diverticulitis likely accounting for patient's left flank pain. No renal, ureteral, bladder calculi, 4 hydroureteronephrosis. Clinical correlation regarding possible hemodynamically significant eccentrically calcified right common iliacs stenosis. Fleischner guidelines were followed.
[2024-02-19 13:11] VITALS: BP 142/86; PULSE 89; RESP 18; TEMP 37.2; O2SAT 97; BMI 22.6
--- NOTE | 2024-02-19 13:12 | ED_ITS ---
HPI - General Adult General Chief complaint: Abdominal Pain Stated complaint: L flank pain Time Seen by Provider: 02/19/24 16:08 Source: patient Mode of arrival: ambulatory Limitations: no limitations History of Present Illness HPI narrative: 63 yo female with PMH of bipolar, hyperparathyroidism, diverticulitis, renal colic, asthma, HLD, PAD, CAD s/p stent, DM, COPD, breast cancer, gastroparesis, rheumatoid arthritis started with L sided abdominal pain and flank pain no vomiting, mild diarrhea, no fevers. Unsure if it is renal colic vs diverticulitis. States she is worried she has kidney stone. She is able to eat and drink. MD complaint: L sided abdominal pain flank pain Onset (ago): day(s) (few) Location: abdomen Radiation: non-radiation Severity: moderate Quality: aching and constant Pain Consistency: constant Relieving factors: none Exacerbating factors: movement Associated symptoms: malaise and other (diarrhea) Treatments prior to arrival: none Related Data Home Medications Medication Instructions Recorded Confirmed albuterol sulfate 90 mcg/actuation 2 inh inhalation Q4H PRN Shortness 08/23/23 01/29/24 aerosol inhaler Of Breath Or Wheezing pantoprazole 40 mg tablet,delayed 40 mg PO BID 09/27/23 01/29/24 release codeine 10 mg-guaifenesin 100 mg/5 10 ml PO Q8-12H PRN allergy 11/01/23 01/29/24 mL oral liquid symptoms/cough fluticasone fur. 100 mcg-umeclid 1 inh inhalation DAILY 11/01/23 01/29/24 62.5 mcg-vilant 25 mcg inhalat.powder (Trelegy Ellipta) fluticasone fur. 200 mcg-umeclid 1 ea inhalation DAILY 02/06/24 62.5 mcg-vilant 25 mcg inhalat.powder (Trelegy Ellipta) Previous Rx's Medication Instructions Recorded lancets 28 gauge (FreeStyle #100 ea 06/07/22 Lancets) walker #1 ea 02/08/23 aspirin 81 mg tablet,delayed 81 mg PO DAILY 90 days #90 tabs 06/30/23 release levalbuterol tartrate 45 2 puff inhalation Q4-6H PRN 08/20/23 mcg/actuation aerosol inhaler shortness of breath 30 days #15 grams ipratropium bromide 0.02 % 2.5 ml inhalation Q6H PRN 10/22/23 solution for inhalation shortness of breath or wheezing #150 mL pregabalin 200 mg capsule (Lyrica) 200 mg PO BID #60 caps 11/13/23 sennosides 8.6 mg-docusate sodium 2 tab-cap (2 x 8.6-50 mg) PO 11/22/23 50 mg tablet (Senna with Docusate BEDTIME 60 days #120 tabs Sodium) blood sugar diagnostic (FreeStyle #100 ea 11/27/23 Lite Strips) pen needle, diabetic 31 gauge x #200 ea 11/27/2304/02 (Comfort EZ Pen Clubb) mesalamine 1.2 gram tablet,delayed 3.6 g (3 x 1.2 gram) PO DAILY 30 12/13/23 release days #90 tabs letrozole 2.5 mg tablet 2.5 mg PO DAILY #90 tabs 12/19/23 trazodone 100 mg tablet 100 mg PO BEDTIME 90 days #90 tabs 12/23/23 folic acid 1 mg tablet 1 mg PO DAILY #90 tabs 12/27/23 methotrexate sodium 2.5 mg tablet 15 mg (6 x 2.5 mg) PO QWEEK #72 12/27/23 tabs dulaglutide 1.5 mg/0.5 mL 1.5 mg (0.5 mL) subcut TH@0900 #6 12/30/23 subcutaneous pen injector mL (Trulicity) Shower Chair #1 ea 01/15/24 clamp on tub safety rail #1 ea 01/15/24 ez cement fittings maker bed assist support #1 ea 01/15/24 linaclotide 145 mcg capsule 145 mcg PO QAM 30 days #30 caps 01/23/24 (Linzess) famotidine 20 mg tablet 20 mg PO BEDTIME 90 days #90 tabs 01/31/24 capsaicin-menthol 0.025 %-1.25 % 1 patch topical DAILY #6 ea 02/06/24 topical patch (Salonpas (capsaicin-menthol)) amoxicillin 875 mg-potassium 1 tab PO BID #20 tabs 02/19/24 clavulanate 125 mg tablet morphine 15 mg immediate release 15 mg PO Q6H PRN pain #14 tabs 02/19/24 tablet ondansetron 4 mg disintegrating 4 mg PO Q8H PRN nausea and 02/19/24 tablet vomiting #20 tabs Allergies Allergy/AdvReac Type Severity Reaction Status Date / Time dog dander [DOGS] Allergy Intermediate Respiratory Verified 02/06/24 10:00 distress shellfish derived Allergy Intermediate Hives Verified 02/06/24 10:00 methylprednisolone Allergy Rash Verified 02/06/24 10:00 etanercept [From Enbrel] AdvReac Intermediate Facial Verified 02/06/24 10:00 Swelling ibuprofen [Ibuprofen] AdvReac Intermediate STOMACH Verified 02/06/24 10:00 UPSET, abdominal pain, nausea and vomiting metformin AdvReac Intermediate Diarrhea Verified 02/06/24 10:00 metronidazole [From FLAGYL] AdvReac Intermediate Diarrhea Verified 02/06/24 10:00 prednisone AdvReac Intermediate hallucinations, Verified 02/06/24 10:00 higher than 20 Review of Systems 2 Review of Systems: Constitutional : No Weight loss, No Fever, No Chills ENT/Mouth : No sore throat, No Rhinorrhea Eyes: No Swelling, No Redness Cardiovascular : No Chest Pain, No SOB, NoEdema Respiratory : No Cough, No Sputum, No Wheezing Gastrointestinal : no Nausea, no Vomiting, positive Diarrhea, positive abdominal Pain, No Hematochezia, No Melena Genitourinary : No Dysuria, No Urinary Frequency, No Hematuria, No Urgency Musculoskeletal : No joint pain, No Myalgias, No Joint Swelling Skin : No Skin Lesions, No rash Neuro : No Weakness, No Numbness, No Dizziness, No Headache Psych : No Anxiety/Panic, No Depression All other systems reviewed and are negative. [facility] Past Medical History Attestation statement: The following information was validated with the patient. 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 T2DM (type 2 diabetes mellitus) Acute respiratory distress Hospital discharge follow-up Tendonitis of ankle or foot Colitis Cough Anxiety CAD (coronary artery disease) HLD (hyperlipidemia) T2DM (type 2 diabetes mellitus) COPD exacerbation Hyperkalemia Atherosclerotic cardiovascular disease GERD (gastroesophageal reflux disease) CVA (cerebral vascular accident) Breast pain, right Rash Bloody diarrhea PAD (peripheral artery disease) Hyperlipidemia LDL goal <100 COPD (chronic obstructive pulmonary disease) Infiltrating ductal carcinoma of left breast, stage 2 Insomnia Dyslipidemia Bipolar 1 disorder, depressed Cough Restrictive airway disease Hypothyroid IDDM (insulin dependent diabetes mellitus) Vitamin D deficiency Osteoporosis Hyperparathyroidism Thyroid nodule Depression Fibromyalgia Seropositive rheumatoid arthritis Reactive airways dysfunction syndrome Allergic rhinitis Irritable bowel Anxiety Bronchial asthma Diabetes type 2, uncontrolled Hypertension Surgical History Hx of sigmoidoscopy History of bronchoscopy Hx of endoscopy H/O cardiac catheterization History of lumpectomy of left breast History of pubovaginal sling History of esophagogastroduodenoscopy (EGD) History of tubal ligation History of colonoscopy History of bunionectomy of both great toes H/O: hysterectomy Family History Family History Mother Diabetes HTN (hypertension) Uterus cancer Malignant tumor of head Breast cancer Father Diabetes HTN (hypertension) CVD (cardiovascular disease) Heart problem Maternal Aunt Breast cancer Brother Myocardial infarction S/P CABG x 4 Family/Other FH: mental illness Family/Other Lung cancer Other Mental health disorder Social History Social History Household Members: Family Household Members Other:: sister Housing: House Are you a primary healthcare facility administrator to a significant other at home: No Do you presently have visiting nurse or other home services: Yes (sister is [employer]ATE [employer]) Unable to assess alcohol history related to: Unknown Alcohol intake: never Patient Tobacco Use Status: Current everyday Tobacco user Tobacco use type: Cigarette Cigarette Packs Per Day: 0.5 Cigarettes Per Day: 2 Years Smoked: 48 e-Cigarette/Vaping Use: Never Used Second Hand Smoke Exposure: No Substance Use Type: Marijuana Advance Directives Date on File: 12/22/21 service: No Current occupational status: disabled Current occupation: rt handed Cognitive needs: No Hearing needs: No Vision needs: Yes Physical Exam ED Vital Signs: Vital Signs - 24 hr 02/19/24 13:11 02/19/24 16:06 Temperature 98.9 F 98.7 F Pulse Rate 89 85 Respiratory Rate 18 20 Blood Pressure 142/86 H 148/86 H Pulse Oximetry 97 95 Oxygen Delivery Method Room Air Room Air BMI result Body Mass Index 22.6 Appearance: Alert. Oriented X3. No acute distress. Eyes: Pupils equal, round and reactive to light. ENT: Pharynx normal. Neck: Normal inspection. Neck supple. CVS: Normal heart rate and rhythm. Pulses normal. Respiratory: No respiratory distress. Breath sounds normal. Abdomen: Soft and mild LLQ no rebound or guarding Skin: Skin warm and dry. Normal skin color. Normal skin turgor. Extremities: No lower extremity edema. No calf ttp Neuro: Oriented X 3. No motor deficit. No sensory deficit. Course Course Course Narrative: This is an RME: Additional HPI, ROS, PE not included below will be deferred to primary provider. This is a 63 y/o F, hx of diverticulitis and kidney stones presenting to the ER with complaints of left flank pain since this morning. Reporting no fevers, urinary symptoms, nausea, vomiting. TTP overlying left CVA into left flank region Plan: Labs, UA, CT abd/pelvis Reevaluation(s) Reevaluation #1: CT scan shows iliac stenosis has known PAD and pulses intact can follow back up with Teresa as needed. Medical Decision Making Medical Decision Making [facility] Narrative: 63 yo female with PMH of bipolar, hyperparathyroidism, diverticulitis, renal colic, asthma, HLD, PAD, CAD s/p stent, DM, COPD, breast cancer, gastroparesis, rheumatoid arthritis here with L sided abdominal pain and on and off mild diarrhea at this time labs, UA, CT scan for renal colic vs diverticulitis ordered. She is not toxic tolerating PO no peritoneal signs or acute abdomen on exam. She can likely be managed as outpatient. Differential Diagnosis Differential Diagnoses: The differential diagnosis associated with the presentation includes renal colic, constipation, diverticulitis Admission/Observation Consideration of admission/observation: Escalation of care including admission/observation considered labs reassuring, tolerating PO can be managed as outpatient Lab Data [facility] Lab Attestation statement: I reviewed the patient's lab results. 02/19/24 13:37 02/19/24 13:37 Labs: Lab Results 02/19/24 Range/Units 13:37 WBC 9.8 (4.8-10.8) X10*3/uL RBC 4.66 (4.20-5.50) X10*6/uL Hgb 12.9 (12.0-16.0) g/dl Hct 39.2 (37.0-47.0) % MCV 84.1 (80.0-98.0) fL MCH 27.7 (27.0-33.0) pg MCHC 32.9 (31.0-35.0) g/dl RDW 17.2 H (11.0-16.0) % Plt Count 267 D (160-400) X10*3/uL MPV 10.3 (9.4-12.3) fL Immature Gran % (Auto) 0.4 (0.0-0.4) % Neut % (Auto) 64.9 (45-73) % Lymph % (Auto) 26.5 (20-40) % Becker % (Auto) 7.1 (2-11) % Eos % (Auto) 0.7 (0-4) % Baso % (Auto) 0.4 (0-2) % Lymph # (Auto) 2.6 (1.2-4.9) X10*3/uL Becker # (Auto) 0.7 (0.1-1.2) X10*3/uL Eos # (Auto) 0.1 (0.0-0.4) X10*3/uL Baso # (Auto) 0.0 (0.0-0.2) X10*3/uL Abs Immat Gran (auto) 0.04 H (0.00-0.03) X10*3/uL Absolute Neuts (auto) 6.3 (2.0-8.3) x10*3/uL Absolute Nucleated RBC 0.000 (0.0-0.012) X10*3/uL Nucleated RBC % (auto) 0.0 (0.0-0.2) /100WBC Sodium 140 (135-145) mmol/L Potassium 4.7 (3.3-5.1) mmol/L Chloride 110 H (96-108) mmol/L Carbon Dioxide 23 (22-29) mmol/L Anion Gap 12 (12-20) BUN 12 (9-16) mg/dL Creatinine 0.79 (0.5-1.4) mg/dL Estim Creat Clear Calc 48.3 Estimated GFR > 60 Random Glucose 112 (60-115) mg/dL Calcium 9.0 D (8.4-10.2) mg/dL Magnesium 1.9 (1.6-2.6) mg/dL Total Bilirubin 0.3 (0.0-1.0) mg/dL Direct Bilirubin 0.1 (0.0-0.5) mg/dL AST 16 (5-31) U/L ALT 15 (0-31) U/L Alkaline Phosphatase 54 (39-117) U/L Total Protein 6.9 (6.5-8.0) g/dL Albumin 3.7 (3.5-5.0) g/dL Lipase 22 (8-78) U/L Urine Color Yellow Urine Appearance Clear Urine pH 7.5 (5.0-9.0) Ur Specific [place] 1.020 (1.005-1.025) Urine Protein Negative (Neg-Trace) mg/dL Urine Glucose (UA) Negative (Negative) mg/dL Urine Ketones Negative (Negative) mg/dL Urine Blood Negative (Negative) Urine Nitrite Negative (Negative) Ur Leukocyte Esterase Trace H (Negative) Urine RBC 0-2 (0-2) /HPF Urine WBC 0-5 (0-5) /HPF Ur Squamous Epith Cells 0-2 (0-2) /HPF Urine Bacteria None Seen (None Seen) Hyaline Casts 0-2 (0-2) /LPF Independent Interpretation I performed an independent interpretation of an: CT Scan (focal diverticulitis) Radiology Impression Discussion of test interpretation with radiology: I have reviewed the radiologist's reading. External Record Review External record reviewed: Inpatient record Prescription Management I considered prescription management with: Pain Medication and Antibiotic Discharge Plan Discharge Clinical Impression: Diverticulitis Patient Disposition: Home, Self-Care Instructions: Diverticulitis (ED) Additional Instructions: labs reassuring, diverticulitis in one area on CT scan is the cause of your pain. return for worsening pain, fevers, vomiting, inability to take medications. follow up with your doctor in one week. vascular disease of blood vessels seen on CT scan but you have great pulses in your feet you can follow back up with vascular doctor as needed. Prescriptions: New morphine 15 mg tablet 15 mg PO Q6H PRN (Reason: pain) Qty: 14 0RF Rx Instructions: partial fill okay; Partial Fill upon patient request. ondansetron 4 mg tablet,disintegrating 4 mg PO Q8H PRN (Reason: nausea and vomiting) Qty: 20 0RF amoxicillin-pot clavulanate 875-125 mg tablet 1 tab PO BID Qty: 20 0RF No Action (DME) lancets [FreeStyle Lancets] 28 gauge misc See Rx Instructions .Route Qty: 100 3RF Rx Instructions: Use 1 lancet once a day (DME) walker Misc See Rx Instructions .Route Qty: 1 0RF Rx Instructions: with seat aspirin 81 mg tablet,delayed release (DR/EC) 81 mg PO DAILY 90 Days Qty: 90 1RF Hold Instructions: resume 12/14 levalbuterol tartrate 45 mcg/actuation HFA aerosol inhaler 2 puff inhalation Q4-6H PRN (Reason: shortness of breath) 30 Days Qty: 15 3RF ipratropium bromide 0.02 % solution 2.5 ml inhalation Q6H PRN (Reason: shortness of breath or wheezing) Qty: 150 3RF pregabalin [Lyrica] 200 mg capsule 200 mg PO BID Qty: 60 1RF trazodone 100 mg tablet 100 mg PO BEDTIME 90 Days Qty: 90 0RF Trulicity 1.5 mg/0.5 mL pen injector 1.5 mg subcut TH@0900 Qty: 6 3RF (DME) Shower Chair Misc See Rx Instructions .Route Qty: 1 0RF Rx Instructions: As directed (DME) clamp on tub safety rail See Rx Instructions .Route .MEDSUPPLY Qty: 1 0RF Rx Instructions: As directed (DME) ez cement fittings maker bed assist support See Rx Instructions .Route .MEDSUPPLY Qty: 1 0RF Rx Instructions: As directed famotidine 20 mg tablet 20 mg PO BEDTIME 90 Days Qty: 90 1RF letrozole 2.5 mg Tablet 2.5 mg PO DAILY Qty: 90 3RF pantoprazole 40 mg tablet,delayed release (DR/EC) 40 mg PO BID Trelegy Ellipta 100-62.5-25 mcg Blister With Device 1 inh INHALATION DAILY codeine-guaifenesin 10-100 mg/5 mL liquid 10 ml PO Q8-12H PRN (Reason: allergy symptoms/cough ) mesalamine 1.2 gram Tablet,Delayed Release (Dr/Ec) 3.6 g PO DAILY 30 Days Qty: 90 0RF (DME) pen needle, diabetic [Comfort EZ Pen Clubb] 31 gauge x 5/16 needle See Rx Instructions .ROUTE .MEDSUPPLY Qty: 200 11RF Rx Instructions: Use 1 pen needle 6 times a day (DME) FreeStyle Lite Strips Strip MISCELLANEOUS DAILY Qty: 100 1RF Rx Instructions: Use 1 test strip three times a day albuterol sulfate 90 mcg/actuation HFA aerosol inhaler 2 inh inhalation Q4H PRN (Reason: Shortness Of Breath Or Wheezing) sennosides-docusate sodium [Senna with Docusate Sodium] 8.6-50 mg tablet 2 tab-cap PO BEDTIME 60 Days Qty: 120 2RF Rx Instructions: Please take every other day at bedtime Linzess 145 mcg capsule 145 mcg PO QAM 30 Days Qty: 30 3RF methotrexate sodium 2.5 mg tablet 15 mg PO QWEEK Qty: 72 1RF folic acid 1 mg tablet 1 mg PO DAILY Qty: 90 1RF Trelegy Ellipta 200-62.5-25 mcg blister with device 1 ea inhalation DAILY Salonpas (capsaicin-menthol) 0.025-1.25 % adhesive patch,medicated 1 patch topical DAILY Qty: 6 4RF Rx Instructions: may leave on area for up to 8 hrs
[2024-02-19 13:42] LABS: MANUAL DIFF FLAG NO
[2024-02-19 13:46] LABS: Appearance Urine Clear; Color Urine Yellow; Glucose Urine UA Negative (Negative); Leukocyte Esterase Urine Trace (Negative); Nitrite Urine Negative (Negative); PH 7.5 (5.0-9.0); UMIC TRIGGER UACC YES; Urine Blood Negative (Negative); Urine Ketones Negative (Negative); Urine Protein Negative (Neg-Trace)
[2024-02-19 13:49] LABS: Bacteria Urine None Seen (None Seen); Hyaline Casts Urine 0-2 /LPF (0-2); RBC Urine 0-2 /HPF (0-2); Squamous Epithelial Cell Urine 0-2 /HPF (0-2); WBC Urine 0-5 /HPF (0-5)
[2024-02-19 13:52] LABS: Basophils Percent Auto 0.4 % (0-2); Eosinophils Absolute Auto 0.1 X10*3/uL (0.0-0.4); Eosinophils Percent Auto 0.7 % (0-4); Hematocrit 39.2 % (37.0-47.0); Hemoglobin 12.9 g/dl (12.0-16.0); Imm Gran Abs Auto 0.04 X10*3/uL (0.00-0.03); Imm Gran Pct Auto 0.4 % (0.0-0.4); Lymphocytes Absolute Auto 2.6 X10*3/uL (1.2-4.9); Lymphocytes Percent Auto 26.5 % (20-40); Mean Corpuscular HGB Conc 32.9 g/dl (31.0-35.0); Mean Corpuscular Hemoglobin 27.7 pg (27.0-33.0); Mean Corpuscular Volume 84.1 fL (80.0-98.0); Mean Platelet Volume 10.3 fL (9.4-12.3); Monocytes Absolute Auto 0.7 X10*3/uL (0.1-1.2); Monocytes Percent Auto 7.1 % (2-11); Neutrophils Absolute Auto 6.3 x10*3/uL (2.0-8.3); Neutrophils Percent Auto 64.9 % (45-73); Platelet Count 267 X10*3/uL (160-400); Red Blood Count 4.66 X10*6/uL (4.20-5.50); Red Cell Distribution Width 17.2 % (11.0-16.0); White Blood Count 9.8 X10*3/uL (4.8-10.8)
[2024-02-19 14:29] LABS: Alanine Aminotransferase 15 U/L (0-31); Albumin Level 3.7 g/dL (3.5-5.0); Alkaline Phosphatase 54 U/L (39-117); Anion Gap 12 (12-20); Aspartate Amino Transferase 16 U/L (5-31); Bilirubin Direct 0.1 mg/dL (0.0-0.5); Bilirubin Total 0.3 mg/dL (0.0-1.0); Blood Urea Nitrogen 12 mg/dL (9-16); Carbon Dioxide 23 mmol/L (22-29); Chloride 110 mmol/L (96-108); Creatinine Clr Calc Pharmacy 48.3; Estimated Glomerular Filt Rate > 60; Glucose Random 112 mg/dL (60-115); Lipase 22 U/L (8-78); Magnesium 1.9 mg/dL (1.6-2.6); Potassium 4.7 mmol/L (3.3-5.1); Sodium 140 mmol/L (135-145); Total Protein 6.9 g/dL (6.5-8.0)
[2024-02-19 16:06] VITALS: BP 148/86; PULSE 85; RESP 20; TEMP 37.1; O2SAT 95
[2024-02-19] MEDS: Morphine Sulfate Immed Release 15 MG TABLET PO (16:13)
[2024-02-19] MEDS: Amoxicillin/Potassium Clav 875 MG TABLET PO (16:13)
[2024-02-19] MEDS: Ondansetron ODT 4 MG TAB.RAPDIS TRANSLINGU (16:13)
[2024-02-19 16:25] VITALS: BP 148/86; PULSE 85; RESP 20; TEMP 37.1; O2SAT 95
== END 2024-02-19 16:26 | disposition home or self-care (01) ==
LOC: HO.ED 16:18
PROVIDERS: Physician Assistant Medical; Emergency Provider Emergency Medicine; PCP Internal Medicine
DX: K57.92 Diverticulitis of intestine, part unspecified, without perforation or abscess without bleeding (principal); I73.9 Peripheral vascular disease, unspecified; I10 Essential (primary) hypertension; E11.9 Type 2 diabetes mellitus without complications; J44.9 Chronic obstructive pulmonary disease, unspecified; Z87.442 Personal history of urinary calculi; Z88.8 Allergy status to other drugs, medicaments and biological substances
CPT/HCPCS: 36415; 74176; 80048; 80076; 81001; 83690; 83735; 85025; 99283; 99284

== ENCOUNTER 2024-02-21 09:35 | Outpatient (AMB) | payer OTHER, SELFPAY ==
--- NOTE | 2024-02-21 09:53 | MHC.OFFVIS ---
Intake Vital Signs 02/21/24 10:02 Height 4 ft 10 in Weight 107 lb 6 oz BMI 22.4 BP 123/83 Blood Pressure Location Lt brachial Position Sitting Pulse 86 Intake Visit Reasons: Breast exam, 1 year follow up Intake Note: Patient is seen in office for 6 month follow up visit, breast exam. 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 Accompanied by: Self / Same As Patient Allergies dog dander [DOGS] Allergy (Intermediate, Verified 02/21/24 09:59) Respiratory distress shellfish derived Allergy (Intermediate, Verified 02/21/24 09:59) Hives methylprednisolone Allergy (Verified 02/21/24 09:59) Rash etanercept [From Enbrel] Adverse Reaction (Intermediate, Verified 02/21/24 09:59) Facial Swelling ibuprofen [Ibuprofen] Adverse Reaction (Intermediate, Verified 02/21/24 09:59) STOMACH UPSET, abdominal pain, nausea and vomiting metformin Adverse Reaction (Intermediate, Verified 02/21/24 09:59) Diarrhea metronidazole [From FLAGYL] Adverse Reaction (Intermediate, Verified 02/21/24 09:59) Diarrhea prednisone Adverse Reaction (Intermediate, Verified 02/21/24 09:59) hallucinations, higher than 20 Medication List - Last Reconciled 02/21/24 by Hayden Rodriguez MD albuterol sulfate 90 mcg/actuation 2 inhalations inhalation Q4H PRN aspirin 81 mg PO DAILY 90 days blood sugar diagnostic (FreeStyle Lite Strips) Use 1 test strip three times a day capsaicin-menthol 0.025-1.25 % (Salonpas (capsaicin-menthol)) 1 patch topical DAILY [clamp on tub safety rail As directed] codeine-guaifenesin 10-100 mg/5 mL 10 mL PO Q8-12H PRN dulaglutide (Trulicity) 1.5 mg (0.5 mL) subcut TH@0900 [ez support associate bed assist support As directed] famotidine 20 mg PO BEDTIME 90 days luwzevjbskz-eupajtyxt-nxgvxwox 200-62.5-25 mcg (Trelegy Ellipta) 1 ea inhalation DAILY folic acid 1 mg PO DAILY ipratropium bromide 2.5 mL inhalation Q6H PRN lancets (FreeStyle Lancets) Use 1 lancet once a day letrozole 2.5 mg PO DAILY levalbuterol tartrate 45 mcg/actuation 2 puffs inhalation Q4-6H PRN 30 days linaclotide (Linzess) 145 mcg PO QAM 30 days mesalamine 3.6 grams (3 x 1.2 gram) PO DAILY 30 days methotrexate sodium 15 mg (6 x 2.5 mg) PO QWEEK morphine 15 mg PO Q6H PRN ondansetron 4 mg PO Q8H PRN pantoprazole 40 mg PO BID pen needle, diabetic (Comfort EZ Pen [place]) Use 1 pen needle 6 times a day pregabalin (Lyrica) 200 mg PO BID sennosides-docusate sodium 8.6-50 mg (Senna with Docusate Sodium) 2 tab-caps (2 x 8.6-50 mg) PO BEDTIME 60 days Shower Chair As directed trazodone 100 mg PO BEDTIME 90 days walker with seat HPI HPI Comments History of Present Illness Details 64-year-old female patient, former patient of Dr. Urbano presenting for a left breast cancer follow-up examination. She was diagnosed with infiltrating ductal carcinoma, ER/AK positive, HER2 Kamille negative in 2018. She underwent a left breast lumpectomy with needle localization and sentinel node biopsy left axilla on 11/26/2018. Pathology revealed a 0.9 cm grade 2 infiltrating ductal carcinoma, ER/AK positive, HER2 Kamille negative. One axillary sentinel node was excised in benign ([id number]). She completed radiation therapy and is currently on letrozole per Dr. Gaitan. She reports bilateral breast pain especially in the right side but denies any palpable lump on either side. She has a previous history of lymphedema which was treated with massage therapy and lymphedema sleeve. She feels that this is much improved. Her most recent mammogram dated 11/20/2023 revealed no mammographic evidence of malignancy with no significant changes from the prior mammogram (BI-RADS 2). 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 T2DM (type 2 diabetes mellitus) Acute respiratory distress Hospital discharge follow-up Tendonitis of ankle or foot Colitis Cough Anxiety CAD (coronary artery disease) HLD (hyperlipidemia) T2DM (type 2 diabetes mellitus) COPD exacerbation Hyperkalemia Atherosclerotic cardiovascular disease GERD (gastroesophageal reflux disease) CVA (cerebral vascular accident) Breast pain, right Rash Bloody diarrhea PAD (peripheral artery disease) Hyperlipidemia LDL goal <100 COPD (chronic obstructive pulmonary disease) Infiltrating ductal carcinoma of left breast, stage 2 Insomnia Dyslipidemia Bipolar 1 disorder, depressed Cough Restrictive airway disease Hypothyroid IDDM (insulin dependent diabetes mellitus) Vitamin D deficiency Osteoporosis Hyperparathyroidism Thyroid nodule Depression Fibromyalgia Seropositive rheumatoid arthritis Reactive airways dysfunction syndrome Allergic rhinitis Irritable bowel Anxiety Bronchial asthma Diabetes type 2, uncontrolled Hypertension Surgical History Hx of sigmoidoscopy History of bronchoscopy Hx of endoscopy H/O cardiac catheterization History of lumpectomy of left breast History of pubovaginal sling History of esophagogastroduodenoscopy (EGD) History of tubal ligation History of colonoscopy History of bunionectomy of both great toes H/O: hysterectomy Family History Mother Diabetes HTN (hypertension) Uterus cancer Malignant tumor of head Breast cancer Father Diabetes HTN (hypertension) CVD (cardiovascular disease) Heart problem Maternal Aunt Breast cancer Brother Myocardial infarction S/P CABG x 4 Family/Other FH: mental illness Family/Other Lung cancer Other Mental health disorder Social History Household Members: Family Household Members Other:: sister Housing: House Are you a primary auto care center manager to a significant other at home: No Do you presently have visiting nurse or other home services: Yes (sister is [employer]) Unable to assess alcohol history related to: Unknown Alcohol intake: never Patient Tobacco Use Status: Current everyday Tobacco user Tobacco use type: Cigarette Cigarette Packs Per Day: 0.5 Cigarettes Per Day: 2 Years Smoked: 48 e-Cigarette/Vaping Use: Never Used Second Hand Smoke Exposure: No Substance Use Type: Marijuana Advance Directives Date on File: 12/22/21 service: No Current occupational status: disabled Current occupation: rt handed Cognitive needs: No Hearing needs: No Vision needs: Yes Review of Systems Const All systems reviewed & are unremarkable except as noted in HPI and below Denies chills, Denies fever(s) and Denies night sweats Card Denies chest pain and Denies dyspnea Resp Denies chest congestion, Denies cough and Denies dyspnea Reports nipple discharge Skin/Breast Reports breast swelling, Denies breast skin changes, Reports breast pain, Denies breast mass, Reports change in breast shape and Reports nipple discharge Adarsh/Lymph Denies lymphadenopathy Physical Exam Const General: healthy appearing, well developed and alert Nutritional Appearance: well nourished Orientation/consciousness: patient oriented x3 Limitations: no limitations Neck Neck: Yes no lymphadenopathy Chest Other: Left breast: No skin change, no nipple retraction, no nipple discharge, no palpable mass, no enlarged lymph nodes, breast tenderness Right breast: No skin change, no nipple retraction, no nipple discharge, no palpable mass, no enlarged lymph nodes, breast tenderness Skin General skin exam: no rashes or lesions noted Neuro General: patient oriented x3 Extrem General: Yes no clubbing, cyanosis or edema Assessment & Plan Assessment & Plan (1) Infiltrating ductal carcinoma of left breast, stage 2: Code(s): C50.912 - Malignant neoplasm of unspecified site of left female breast Plan 64-year-old female patient presenting with a previous history of left breast lumpectomy with needle localization, sentinel node biopsy on 11/26/2018 for a 0.9 cm grade 2 infiltrating ductal carcinoma with 1 axillary lymph node negative for malignancy. She continues to complain of bilateral breast pain but denies any new breast symptoms. Her most recent mammogram of 09/26/2022 revealed no mammographic evidence of malignancy (BI-RADS 2). Annual screening mammography is recommended in 1 year (scheduled for 10/02/2023). Examination today reveals no suspicious findings in either breast other than continued bilateral breast tenderness. She should follow up in 1 year for routine breast examination. Quality Reporting (2020) Adult ([facility] [birth year]) Smoking risk assessment performed?: Yes Patient Tobacco Use Status: Current everyday Tobacco user Coding Level of Care Code Est Pt Level 3 (19789) Diagnoses Infiltrating ductal carcinoma of left breast, stage 2 C50.912
[2024-02-21 10:02] VITALS: BP 123/83; PULSE 86; BMI 22.4
== END 2024-02-21 10:12 | disposition home or self-care (01) ==
PROVIDERS: PCP Internal Medicine; Visit Provider Surgery
DX: C50.912 Malignant neoplasm of unspecified site of left female breast (principal)
CPT/HCPCS: 99213

== ENCOUNTER 2024-02-21 10:15 | Outpatient (REF) | payer OTHER, SELFPAY ==
--- NOTE | 2024-02-21 10:18 | EMG_ITS ---
Chief complaint: 1 month of left dorsal foot pain, burning, tingling; followed by same symptoms on mid/upper back wrapping to the right. No vesicles or rash or sign of cellulitis seen. History of rheumatoid arthritis and diabetes. Reason for referral: Evaluate for neuropathy Referred by: Rossi Weaver NP Procedure done: Left lower extremity NCS/EMG Precautions and/or limitations: None The limb temperature was monitored continuously and remained between 32-36 degrees C during the performance of the NCS. Nerve Conduction Studies Anti Sensory Summary Table ?Stim Site NR Onset (ms) Norm Onset (ms) Peak (ms) Norm Peak (ms) O-P Amp (?V) Norm O-P Amp Site1 Site2 Delta-0 (ms) Dist (cm) Fco (m/s) Norm Fco (m/s) Left Sural Anti Sensory (Lat Mall) Calf ? 2.9 3.6 <4.0 12.5 >5.0 Calf Lat Mall 2.9 14.0 48 Right Sural Anti Sensory (Lat Mall) Calf ? 2.4 3.3 <4.0 5.2 >5.0 Calf Lat Mall 2.4 14.0 58 Motor Summary Table ?Stim Site NR Onset (ms) Norm Onset (ms) O-P Amp (mV) Norm O-P Amp iAmp (mV) Amp (1st) (%) Site1 Site2 Delta-0 (ms) Dist (cm) Fco (m/s) Norm Fco (m/s) Left Peroneal Motor (Ext Dig Brev) Ankle ? 4.0 <4.0 6.4 >2.5 8.9 100.0 Ankle Ext Dig Brev 4.0 0.0 B Fib ? 9.1 6.2 8.3 96.9 B Fib Ankle 5.1 25.0 49 >40 Poplt ? 9.8 6.1 8.2 95.3 Poplt B Fib 0.7 4.0 57 >40 Left Tibial Motor (Abd Quiroz Brev) Ankle ? 3.3 <5 9.1 >2.5 11.3 100.0 Ankle Abd Quiroz Brev 3.3 0.0 Knee ? 10.5 6.6 8.2 72.5 Knee Ankle 7.2 32.0 44 >40 EMG ?Side Muscle Nerve Root Ins Act Fibs Psw Amp Dur Poly Recrt Int Pat Comment Left AbdHallucis MedPlantar S1-2 Nml Nml Nml Nml Nml 0 Nml Complete Left AntTibialis Dp Br Peron L4-5 Nml Nml Nml Nml Nml 0 Nml Complete Left PostTibialis Tibial L5, S1 Nml Nml Nml Nml Nml 0 Nml Complete Left MedGastroc Tibial S1-2 Nml Nml Nml Nml Nml 0 Nml Complete Left VastusMed Femoral L2-4 Nml Nml Nml Nml Nml 0 Nml Complete Paraspinal EMG ?Side Muscle Nerve Root Ins Act Fibs Psw Comment Left Lumbar Upper Rami Nml Nml Nml Left Lumbar Mid Rami Nml Nml Nml Left Lumbar Lower Rami Nml Nml Nml FINDINGS: All motor and sensory nerves tested showed normal latencies, amplitudes and conduction velocities. Concentric needle EMG was performed in selected muscles of the left lower extremity and lumbar paraspinals. Study did not reveal signs of electric abnormalities as shown in the table below. IMPRESSION: 1. This is a normal study. 2. There is no electrodiagnostic evidence for peroneal neuropathy, tibial neuropathy, lumbosacral plexopathy, lumbar radiculopathy, or peripheral neuropathy. Thank you for your kind referral. Hannah Ruffin MD, JUAN M Board Certified, [place] [employer] and [employer] (ABPMR) Board Certified, [place] [employer] Electrodiagnostic [employer] (ABEM) [place] [id number] [facility]
== END 2024-02-21 10:16 | disposition home or self-care (01) ==
LOC: HO.NEURO 10:15
PROVIDERS: PCP Internal Medicine; Visit Provider Registered Nurse Emergency
DX: R20.2 Paresthesia of skin (principal); C50.912 Malignant neoplasm of unspecified site of left female breast
CPT/HCPCS: 95886; 95908; 99212

== ENCOUNTER → 2024-02-21 10:18 | Outpatient (BNV) | payer OTHER, SELFPAY | PROVIDERS: PCP Internal Medicine; Visit Provider Physical Medicine & Rehabilitation | DX: M79.672 Pain in left foot (principal) | CPT/HCPCS: 95886; 95908 ==

== ENCOUNTER 2024-02-26 13:21 | Outpatient (REF) | payer OTHER, SELFPAY ==
[2024-02-26 13:41] LABS: MANUAL DIFF FLAG NO
[2024-02-26 14:06] LABS: Basophils Percent Auto 0.5 % (0-2); Eosinophils Absolute Auto 0.1 X10*3/uL (0.0-0.4); Eosinophils Percent Auto 0.6 % (0-4); Hematocrit 41.8 % (37.0-47.0); Hemoglobin 13.7 g/dl (12.0-16.0); Imm Gran Abs Auto 0.04 X10*3/uL (0.00-0.03); Imm Gran Pct Auto 0.5 % (0.0-0.4); Lymphocytes Absolute Auto 2.8 X10*3/uL (1.2-4.9); Lymphocytes Percent Auto 34.3 % (20-40); Mean Corpuscular HGB Conc 32.8 g/dl (31.0-35.0); Mean Corpuscular Hemoglobin 27.6 pg (27.0-33.0); Mean Corpuscular Volume 84.3 fL (80.0-98.0); Mean Platelet Volume 10.9 fL (9.4-12.3); Monocytes Absolute Auto 0.6 X10*3/uL (0.1-1.2); Monocytes Percent Auto 6.8 % (2-11); Neutrophils Absolute Auto 4.6 x10*3/uL (2.0-8.3); Neutrophils Percent Auto 57.3 % (45-73); Platelet Count 353 X10*3/uL (160-400); Red Blood Count 4.96 X10*6/uL (4.20-5.50); Red Cell Distribution Width 17.8 % (11.0-16.0); White Blood Count 8.1 X10*3/uL (4.8-10.8)
[2024-02-26 14:49] LABS: Alanine Aminotransferase 15 U/L (0-31); Albumin Level 4.2 g/dL (3.5-5.0); Alkaline Phosphatase 59 U/L (39-117); Anion Gap 16 (12-20); Aspartate Amino Transferase 16 U/L (5-31); Bilirubin Total 0.3 mg/dL (0.0-1.0); Blood Urea Nitrogen 14 mg/dL (9-16); C Reactive Protein 0.31 mg/dL (< or = 0.50); Calcium 9.6 mg/dL (8.4-10.2); Carbon Dioxide 26 mmol/L (22-29); Chloride 103 mmol/L (96-108); Estimated Glomerular Filt Rate > 60; Glucose Random 140 mg/dL (60-115); Potassium 4.4 mmol/L (3.3-5.1); Sodium 141 mmol/L (135-145); Total Protein 7.6 g/dL (6.5-8.0)
[2024-02-26 15:06] LABS: Erythrocyte Sedimentation Rate 13 MM/HR (0-20)
== END 2024-02-26 13:22 | disposition home or self-care (01) ==
LOC: HO.LAB 13:21
PROVIDERS: PCP Internal Medicine; Visit Provider Nurse Practitioner Family
DX: M05.9 Rheumatoid arthritis with rheumatoid factor, unspecified (principal); Z79.61 Long term (current) use 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
CPT/HCPCS: 36415; 80053; 85025; 85652; 86140

== ENCOUNTER 2024-03-04 08:39 | Outpatient (AMB) | payer OTHER, SELFPAY ==
[2023-07-16 10:06] VITALS: BP 96/60; BP 96/66
[2023-08-12 14:54] VITALS: BP 96/66; BMI 22.5
[2024-03-04 09:00] VITALS: BP 106/78; PULSE 106; RESP 17; TEMP 37; O2SAT 97; BMI 21.6
--- NOTE | 2024-03-04 09:00 | MHC.OFFVIS ---
Intake Vital Signs 03/04/24 09:00 Height 4 ft 10 in Weight 103 lb 6.349 oz BMI 21.6 BP 106/78 Blood Pressure Location Rt brachial Position Sitting Respiration 17 Pulse 106 H Pulse Source Pulse Oximeter Temp 98.6 F Temp Source Skin Pulse Oximetry (%) 97 Oxygen Delivery Method Room Air Intake Visit Reasons: IBD arthritis Allergies dog dander [DOGS] Allergy (Intermediate, Verified 03/04/24 09:03) Respiratory distress shellfish derived Allergy (Intermediate, Verified 03/04/24 09:03) Hives methylprednisolone Allergy (Verified 03/04/24 09:03) Rash etanercept [From Enbrel] Adverse Reaction (Intermediate, Verified 03/04/24 09:03) Facial Swelling ibuprofen [Ibuprofen] Adverse Reaction (Intermediate, Verified 03/04/24 09:03) STOMACH UPSET, abdominal pain, nausea and vomiting metformin Adverse Reaction (Intermediate, Verified 03/04/24 09:03) Diarrhea metronidazole [From FLAGYL] Adverse Reaction (Intermediate, Verified 03/04/24 09:03) Diarrhea prednisone Adverse Reaction (Intermediate, Verified 03/04/24 09:03) hallucinations, higher than 20 Medication List - Last Reconciled 03/04/24 by Kia Ross, RN albuterol sulfate 90 mcg/actuation 2 inhalations inhalation Q4H PRN aspirin 81 mg PO DAILY 90 days blood sugar diagnostic (FreeStyle Lite Strips) Use 1 test strip three times a day capsaicin-menthol 0.025-1.25 % (Salonpas (capsaicin-menthol)) 1 patch topical DAILY [clamp on tub safety rail As directed] codeine-guaifenesin 10-100 mg/5 mL 10 mL PO Q8-12H PRN dulaglutide (Trulicity) 1.5 mg (0.5 mL) subcut TH@0900 dulaglutide (Trulicity) 0.75 mg (0.5 mL) subcut QWEEK 30 days [ez cutter v groove bed assist support As directed] famotidine 20 mg PO BEDTIME 90 days phrotxwrfci-vimtlafuz-xajetysa 200-62.5-25 mcg (Trelegy Ellipta) 1 ea inhalation DAILY folic acid 1 mg PO DAILY ipratropium bromide 2.5 mL inhalation Q6H PRN lancets (FreeStyle Lancets) Use 1 lancet once a day letrozole 2.5 mg PO DAILY levalbuterol tartrate 45 mcg/actuation 2 puffs inhalation Q4-6H PRN 30 days linaclotide (Linzess) 145 mcg PO QAM 30 days mesalamine 3.6 grams (3 x 1.2 gram) PO DAILY 30 days methotrexate sodium 15 mg (6 x 2.5 mg) PO QWEEK morphine 15 mg PO Q6H PRN ondansetron 4 mg PO Q8H PRN pantoprazole 40 mg PO BID pen needle, diabetic (Comfort EZ Pen [place]ao) Use 1 pen needle 6 times a day pregabalin (Lyrica) 200 mg PO BID sennosides-docusate sodium 8.6-50 mg (Senna with Docusate Sodium) 2 tab-caps (2 x 8.6-50 mg) PO BEDTIME 60 days Shower Chair As directed trazodone 100 mg PO BEDTIME 90 days walker with seat HPI HPI Comments History of Present Illness Details Ms. Swan is in the office today for follow-up of her Seropositive rheumatoid arthritis. She was started on MTX 2.5 mg 6 pills QW and folic acid 1 mg QD at last visit. She states it has helped her hands and feet and she is feeling better on it. She has had an episode of Diverticulitis and received antibiotics since last visit. She also complains of what sounds like Shingles without the rash to her right flank and intercostal area. She did have chicken pox as a child. Her PCP is working it up and has done and EMG study so far. She will meet with PCP this week. Prior Visit: Ms. Swan returns for evaluation of her rheumatoid arthritis. She is complaining for all over body pain today and has a history of fibromyalgia. She was diagnosed with Crohn's and has now been on Mesalamine for two weeks. She still has significant joint pain at times, this tends to be an episodic phenomena. She describes episodes of pain at the base of her thumbs sometimes involving some swelling also up into the 2nd MCP joint and the wrist. These last a day or 2 and then subside. Tenderness to the plantar aspect of her feet, feels like burning, and achilles pain bilaterally. She also has lower back pain. She remains on Lyrica 200 mg twice a day, prednisone 5 mg daily, and occasional carisoprodol or cyclobenzaprine. She started on morhpine for Kidney stones and this has not been helpful for the joint pain. [facility] Medical History HTN (hypertension) technician terminal and repeater (current) use 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 T2DM (type 2 diabetes mellitus) Acute respiratory distress Hospital discharge follow-up Tendonitis of ankle or foot Colitis Cough Anxiety CAD (coronary artery disease) HLD (hyperlipidemia) T2DM (type 2 diabetes mellitus) COPD exacerbation Hyperkalemia Atherosclerotic cardiovascular disease GERD (gastroesophageal reflux disease) CVA (cerebral vascular accident) Breast pain, right Rash Bloody diarrhea PAD (peripheral artery disease) Hyperlipidemia LDL goal <100 COPD (chronic obstructive pulmonary disease) Infiltrating ductal carcinoma of left breast, stage 2 Insomnia Dyslipidemia Bipolar 1 disorder, depressed Cough Restrictive airway disease Hypothyroid IDDM (insulin dependent diabetes mellitus) Vitamin D deficiency Osteoporosis Hyperparathyroidism Thyroid nodule Depression Fibromyalgia Seropositive rheumatoid arthritis Reactive airways dysfunction syndrome Allergic rhinitis Irritable bowel Anxiety Bronchial asthma Diabetes type 2, uncontrolled Hypertension Surgical History Hx of sigmoidoscopy History of bronchoscopy Hx of endoscopy H/O cardiac catheterization History of lumpectomy of left breast History of pubovaginal sling History of esophagogastroduodenoscopy (EGD) History of tubal ligation History of colonoscopy History of bunionectomy of both great toes H/O: hysterectomy Family History Mother Diabetes HTN (hypertension) Uterus cancer Malignant tumor of head Breast cancer Father Diabetes HTN (hypertension) CVD (cardiovascular disease) Heart problem Maternal Aunt Breast cancer Brother Myocardial infarction S/P CABG x 4 Family/Other FH: mental illness Family/Other Lung cancer Other Mental health disorder Social History Household Members: Family Household Members Other:: sister Housing: House Are you a primary critical care clinical nurse specialist to a significant other at home: No Do you presently have visiting nurse or other home services: Yes (sister is MEDICAL REIMBURSEMENT MANAGER) Unable to assess alcohol history related to: Unknown Alcohol intake: never Patient Tobacco Use Status: Current everyday Tobacco user Tobacco use type: Cigarette Cigarette Packs Per Day: 0.5 Cigarettes Per Day: 2 Years Smoked: 48 e-Cigarette/Vaping Use: Never Used Second Hand Smoke Exposure: No Substance Use Type: Marijuana Advance Directives Date on File: 12/22/21 service: No Current occupational status: disabled Current occupation: rt handed Cognitive needs: No Hearing needs: No Vision needs: Yes Review of Systems Const All systems reviewed & are unremarkable except as noted in HPI and below Physical Exam Vital Signs: Last Vital Signs Temp 98.6 F 03/04/24 09:00 Pulse 106 H 03/04/24 09:00 Resp 03/04/24 09:00 BP 106/78 03/04/24 09:00 Pulse Ox 97 03/04/24 09:00 Oxygen Delivery Method Room Air 03/04/24 09:00 BMI result Body Mass Index 21.6 APPEARANCE: Patient in no acute distress EYES no redness, pupils equal and reactive to light, eyelids normal Cervical Spine:.? Mild pain with extremes of motion.? Some cervical muscle tenderness. Thoracic Spine:.? No scoliosis.? No tenderness on palpation. Lumbar Spine:.? Alignment normal.? Mild lumbar pain with full flexion.? No tenderness. Chest Wall:? There is no tenderness today. No redness or swelling. Hands:? Right:? Normal range of motion with mild discomfort.? There is some slight tenderness without swelling at the 5th MCP joint.?There is tenderness at the ulnar styloid. There is some minimal bony enlargement at the thumb IP and thumb CMC joint without tenderness.? There is mild tenderness across the flexor tendons without any swelling or triggering.? No sensory loss or thenar atrophy.? Left: Bony enlargement and tenderness at the base of the thumb. Normal pain-free range of motion without tenderness, swelling, increased warmth or erythema.? Some mild flexor tendon tenderness without triggering is evident.? No thenar atrophy or sensory loss. Wrists:.? Slight pain with flexion extension at 80 degrees with some minimal tenderness.? No swelling, increased warmth or erythema. Elbows:. Normal pain-free range of motion with mild lateral epicondylar tenderness.? Over the joint space there is no swelling, increased warmth or erythema. Shoulders:.?? Full range of motion without pain. No tenderness, weakness, swelling, increased warmth or erythema. Hips:.? Full range of motion without pain. Hip bursa:.? Mild trochanteric tenderness. Knees:.?? Normal pain-free range of motion with mild patellofemoral crepitus.? There is some medial compartment tenderness without effusion, soft tissue swelling, increased warmth or erythema.? Ankles:.? Normal range of motion with slight medial and lateral tenderness but no swelling, increased warmth or erythema. Tenderness to achilles tendon Feet:.? Normal pain-free range of motion with mild 1st MTP bony enlargement.? However there is no tenderness in the instep or MTP joints.? Tenderness to right MTP joints, non on left, no swelling, increased warmth or erythema.? Tenderness to plantar (ball) of both feet. There does not appear to be any sensory loss in the feet. Tender points:.? Mild tenderness to digital palpation at the occiput, trapezius, second rib, lateral epicondyle, knees, greater trochanter and gluteal area bilaterally. Results Reviewed Results Reviewed: Laboratory Tests 02/26/24 13:39 WBC 8.1 RBC 4.96 Hgb 13.7 Hct 41.8 ESR 13 Calcium 9.6 D AST 16 ALT 15 C-Reactive Protein 0.31 Total Protein 7.6 Albumin 4.2 Assessment & Plan Assessment & Plan (1) Seropositive rheumatoid arthritis: Comment: Orenica: 04/2021- 06/2022- stopped due to severe COPD requiring long standing azithromycin Plaquenil: approx. 02/2021-May 2021 self stopped Enbrel: approx. 02/2021 ordered after cleared for hep A, stopped due to allergy Sulfasalazine: approx. 02/2019- 02/2021 - restarted 09/27/2022 -04/2023 stopped due to heaedache and nausea Methorexate: approx. 11/2016-12/2018 started in [facility]. Diagnosed with breast CA so methotrexate discontinued. Changed to sulfsalazine 500mg 2 tabs BID to prevent lung fibrosis as patient was receiving radiation therapy for her breast CA. Completed Radiation therapy February 2019. OnTamoxifen but had side effects so was started on Letrozole in May 2019. Xeljanz: approx. 03/2018-04/2018 Cimzia: aprrox.05/2017- did not take Humira: dates unknown Leflunomide: many years ago, then approx. 08/2020-02/2021 Diagnosed 25 years ago Code(s): M05.9 - Rheumatoid arthritis with rheumatoid factor, unspecified (2) Tendonitis of ankle or foot: Code(s): M77.50 - Other enthesopathy of unspecified foot and ankle (3) Smoker: Comment: Has past history of smoking 50 years. Currently smoking about 3-5 cigarettes a day. Counseled once again that she must quit completely. Advised that her frequent cough is definitely related to her ongoing smoking. Discussed with patient that smoking can make RA worse Code(s): F17.200 - Nicotine dependence, unspecified, uncomplicated (4) technician terminal and repeater (current) use 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: Code(s): Z79.61 - technician terminal and repeater (current) use 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 Plan #Seropos RA: Will start patient on MTX 2.5mg 6 pills which she had used before. I will also start her on a course of Prednisone to bridge MTX. We discussed HUMIRA as an option if MTX is not effective. HUMIRA can also do dual purpose given her crohns. We will obtain labs in 8 weeks. to assess CBC and LFts on MTX. Discussed with patient that smoking can make RA worse. She is down to one cigarette daily. She did not like chantix. #Sand Bobber Use: #OA/FM:Fairly stable. She should continue to use topical diclofenac gel on the hands when needed and acetaminophen. She will continue with the Lyrica #FLank/Intercostal Pain; Sounds like HSZ. May benefit from a PCR test, she will discuss with PCP. Patient will call the office if not prescribed valcyclovir or other treatment or test. A follow-up in about 12 weeks recommended. I spent 30 minutes reviewing chart, evaluating patient, discussing shingles and documenting. Prior visit Assessment.: Given the +RF and +CCP, and joint pain, it may be Rheumatoid arthritis. And while the patient does have some osteoarthritis in her hands that may occasionally flare-up, it does not present like active rheumatoid arthritis currently. Additionally, she has many tender points consistent with some underlying fibromyalgia. She has had numerous attempts at therapy in the past with 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y drugs. However, the only medication that patient stipulate to that has been helpful is Orencia. She says she felt improved on Orencia which was stopped due to her prophylactic Antibiotic. Now that she has pretty severe COPD with frequent infections, the use of those drugs is more problematic than their potential benefit. Patient was recently diagnosed with Crohn's. This too can add a layer of complexity to her joint pain and may contributing to the Achilles tenderness and the plantar tenderness as in IBD related Tendonitis. Since she was started on Mesalamine for Crohns, we will wait to see if it is effective for the crohns and in turn reduce some of the joint tenderness and also if not, will GI will need to initiate anything further. Given that GI medications do also suppresses the immune system, we have to be careful not to overlap. Orders: Orders Erythrocyte Sedimentation Rate Today M05.9 - Rheumatoid arthritis with rheumatoid factor, unspecified, Z79.61 - correction (current) use 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 Complete Blood Count Auto Diff Today M05.9 - Rheumatoid arthritis with rheumatoid factor, unspecified, Z79.61 - correction (current) use 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 C Reactive Protein Today M05.9 - Rheumatoid arthritis with rheumatoid factor, unspecified, Z79.61 - correction (current) use 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 Comprehensive Met. Panel Today M05.9 - Rheumatoid arthritis with rheumatoid factor, unspecified, Z79.61 - technician terminal and repeater (current) use 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 Quality Reporting (2019) Adult ([facility] 13801/09/69) Smoking risk assessment performed?: Yes Patient Tobacco Use Status: Current everyday Tobacco user Coding Level of Care Code Est Pt Level 4 (05695) Diagnoses Seropositive rheumatoid arthritis M05.9 Tendonitis of ankle or foot M77.50 Smoker F17.200 technician terminal and repeater (current) use 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 Z79.61
== END 2024-03-04 09:32 | disposition home or self-care (01) ==
PROVIDERS: PCP Internal Medicine; Visit Provider Nurse Practitioner Family
DX: M05.79 Rheumatoid arthritis with rheumatoid factor of multiple sites without organ or systems involvement (principal); M77.50 Other enthesopathy of unspecified foot and ankle; F17.200 Nicotine dependence, unspecified, uncomplicated; Z79.61 Long term (current) use 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
CPT/HCPCS: 99214

== ENCOUNTER → 2024-03-04 08:39 | Outpatient (BNVA) | payer OTHER, SELFPAY | PROVIDERS: PCP Internal Medicine; Visit Provider Nurse Practitioner Family | DX: M05.9 Rheumatoid arthritis with rheumatoid factor, unspecified (principal); M77.50 Other enthesopathy of unspecified foot and ankle; M79.7 Fibromyalgia; F17.210 Nicotine dependence, cigarettes, uncomplicated; Z79.52 Long term (current) use of systemic steroids; Z79.61 Long term (current) use 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 | CPT/HCPCS: 99212 ==

== ENCOUNTER 2024-03-05 12:07 | Outpatient (AMB) | payer OTHER, SELFPAY ==
[2024-03-04 09:33] VITALS: BP 96/60; BP 96/66; BMI 22.5
--- OUTSIDE RECORDS SUMMARY | 2024-03-05 12:08 | XMS_ITS | Continuity of Care Document ---
Author Organization [facility] ter Address [address] [place] [id number] Care Team Providers Care Real Estate Administrator Name Role Phone Jose Wasserman MD, Darby Primary Care Physician Encounter [facility] [place](s[place] 09/17/23 - 09/17/[address] [id number] Discharge Disposition: A-D/C Home Attending Physician: Joseph Salmon MD Admitting Physician: Joseph Salmon MD Referring Physician: Joseph Salmon MD Allergies, Adverse Reactions, Alerts Substance Reaction Severity Status methylPREDNISolone Active shellfish Active Flagyl Active Motrin Active Enbrel Active metFORMIN Active Medications Albuterol (Eqv-ProAir HFA) 90 mcg/inh inhalation aerosol USE 1PUFF BY MOUTH 4 TIMES A DAY NEEDED FOR FOR SHORTNESS OF BREATH OR WHEEZING Start Date: 12/26/21 Status: Ordered aspirin 81 mg oral delayed release tablet 81 mg, By Mouth, Daily, # 30 tablet, Refills 0, Tot. Refills 0, Maintenance, 12/28/21 13:05:00 EST,Route to Pharmacy Electronically, [facility], Partial fill upon patient request if the prescription is for a schedule II opioid drug., 14... Start Date: 12/28/21 Stop Date: 01/27/22 Status: Ordered atorvastatin 80 mg oral tablet 1 tablet = 80 mg, By Mouth, Daily at bedtime, # 30 tablet, 0 Refills, Maintenance, 12/28/21 13:07:00 EST, Tablet, [facility], Partial fill upon patient request if the prescription is for a schedule II opioid drug., 148, cm, 12/27/21 20:5... Start Date: 12/28/21 Status: Ordered lamotrigine 25 mg oral tablet 25 mg, 1, tablet, By Mouth, 2 times a day, # 180 tablet, Refills 0, Maintenance, 12/26/21 20:32:00 EST, Partial fill upon patient request if the prescription is for a schedule II opioid drug. Start Date: 12/26/21 Status: Ordered leflunomide 20 mg oral tablet 1 tablet = 20 mg, By Mouth, Daily, # 90 tablet, 0 Refills, Maintenance, 12/26/21 20:33:00 EST, Tablet, Partial fill upon patient request if the prescription is for a schedule II opioid drug. Start Date: 12/26/21 Status: Ordered letrozole 2.5 mg oral tablet 1 tablet = 2.5 mg, By Mouth, Daily, # 30 tablet, 0 Refills, Maintenance, 12/26/21 20:34:00 EST, Tablet, Partial fill upon patient request if the prescription is for a schedule II opioid drug. Start Date: 12/26/21 Stop Date: 01/25/22 Status: Ordered lisinopril 5 mg oral tablet 5 mg, 1, tablet, By Mouth, Daily, # 30 tablet, Refills 0, Tot. Refills 0, Maintenance, 12/28/21 13:08:00 EST, Route to Pharmacy Electronically, [facility], Partial fill upon patient request if the prescription is for a schedule II opioid... Start Date: 12/28/21 Status: Ordered metoprolol 25 mg oral tablet 12.5 mg, 0.5, tablet, By Mouth, 2 times a day, # 30 tablet, Refills 0, Tot. Refills 0, Maintenance,12/28/21 13:08:00 EST, Route to Pharmacy Electronically, [facility], Partial fill upon patient request if the prescription is for a sched... Start Date: 12/28/21 Status: Ordered nitroglycerin 0.4 mg sublingual tablet 1 tablet = 0.4 mg, Sublingual, Every 5 minutes, PRN Chest Pain, # 100 tablet, 0 Refills, Maintenance, 12/28/21 13:08:00 EST, Tablet, [facility], Partial fill upon patient request if theprescription is for a schedule II opioid drug., 148... Start Date: 12/28/21 Status: Ordered NovoLOG FlexPen 100 units/mL injectable solution INJECT 4-8 UNITS SUBCUTANEOUSLY 3 TIMES A DAY WITH MEALS Start Date: 12/26/21 Status: Ordered pregabalin 200 mg oral capsule TAKE 1 CAPSULE BY MOUTH EVERYDAY AT BEDTIME Start Date: 12/26/21 Status: Ordered ticagrelor 90 mg oral tablet 1 tablet = 90 mg, By Mouth, 2 times a day, # 60 tablet, 0 Refills, Maintenance, 12/28/21 13:08:00 EST, Tablet, [facility], Partial fill upon patient request if the prescription is for aschedule II opioid drug., 148, cm, 12/27/21 20:55:0... Start Date: 12/28/21 Status: Ordered tiZANidine 2 mg oral tablet TAKE 1 TABLET BY MOUTH AT BEDTIME NEEDED FOR MUSCLE SPASMS Start Date: 12/26/21 Status: Ordered traZODone 100 mg oral tablet TAKE 1 TABLET BY MOUTH DAILY AT BEDTIME 90 DAYS Start Date: 12/26/21 Status: Ordered Tresiba FlexTouch 100 units/mL subcutaneous solution INJECT 46 UNITS DAILY Start Date: 12/26/21 Status: Ordered Trulicity Pen 1.5 mg/0.5 mL subcutaneous solution 0.5 mL = 1.5 mg, Subcutaneous Injection, Every week, 0 Refills, Maintenance, 12/26/21 20:32:00 EST,Solution, Partial fill upon patient request if the prescription is for a schedule II opioid drug. Start Date: 12/26/21 Status: Ordered varenicline 1mg tablet 1 tablet = 1 mg, By Mouth, 2 times a day, # 56 tablet, 0 Refills, Maintenance, 12/26/21 20:32:00 EST, Tablet, Partial fill upon patient request if the prescription is for a schedule II opioid drug. Start Date: 12/26/21 Status: Ordered Vitamin D3 1000 intl units oral tablet 1 tablet = 25 mcg, By Mouth, Daily, # 30 tablet, 0 Refills, Maintenance, 12/26/21 20:34:00 EST, Tablet, Partial fill upon patient request if the prescription is for a schedule II opioid drug. Start Date: 12/26/21 Status: Ordered Problem List Condition Confirmation Course Effective Dates Status Health St atus Informant Abnormal head CT Confirmed Active Hypertensive urgency Confirmed Active Migraine Confirmed Active NSTEMI (non-ST elevated myocardial infarction) Confirmed Active TIA (transient ischemic attack) Confirmed Active Vital Signs Most recent to oldest [Reference Range]: 1 2 3 Height 148 cm (09/17/23 10: AM) Weight 47.9 kg (09/17/23 10: AM) Oxygen Saturation [94-100 %] 98 % (09/17/23 1:30 PM) 95 % (09/17/23 12:30 PM) 95 % (09/17/23 12:00 PM) Pulse Rate [55-90 bpm] 87 bpm (09/17/23 10:27 AM) Body Mass Index [18.5-24.99 kg/m2] 21.87 kg/m2 (09/17/23 10: AM) Blood Pressure [90-138/55-84 mm Hg] 123/73mm Hg (09/17/23 1:30 PM) 123/70mm Hg (09/17/23 12:30 PM) 104/72mm Hg (09/17/23 12:00 PM) Respiratory Rate [16-30 br/min] 16 br/min (09/17/23 1:30 PM) 20 br/min (09/17/23 12:30 PM) 20 br/min (09/17/23 12:00 PM) Temperature [96.8-100.4 DegF] 97.3 DegF (09/17/23 10: AM) Mode of Delivery (Oxygen) Room air (09/17/23 1:30 PM) Room air (09/17/23 12:30 PM) Room air (09/17/23 12:00 PM) Blood pressure sites Arm, left (09/17/23 1:30 PM) Arm, left (09/17/23 12:30 PM) Arm, left (09/17/23 12:00 PM) Temperature Route Oral (09/17/23 10:27 AM) Weight Obtained Via Standing scale (09/17/23 10: AM) Social History Social History Type Response Smoking Status Former smoker entered on: 06/12/17 Sex Cardiac catheterization study * Event Display: Cardiac Kosher Sealer Report Authored Date: Cardiac Diagnostic Report Demographics Patient Name SEN TORRES Gender Female [employer] Facility Room Number [id number] Height 58.27 inches Date of 1960 Weight 105.6 pounds Age 63 year(s) BSA 1.39 m2 Accession Number [id number] BMI 21.87 kg/m2 Referring Physician Joseph Salmon MD Date of Study 09/17/2023 Performing Physician Joseph Salmon MD Fellow Erin Harmon DO Interventional Physician Procedure Procedure Type Diagnostic procedure:Coronary Angiography with [facility] Diagnostic Catheterization Status:Elective Indications Indications: CAD and Chest pain. Clinical History Admission Medications + +------+-------+ + + +---------+ !Medication !Dosage!Times !Last !Last !Administered !Comments ! ! ! !Per Day!Delivery !Delivery ! ! ! ! ! ! !Date !Time ! ! ! + +------+-------+ + + +---------+ !Aspirin (any)!81 mg !x 1 !09/16/2023 !19:00 !Yes ! ! + +------+-------+ + + +---------+ Clinical Evaluation Leading to Procedure - The patient's CAD presentation was assessed as: Stable angina. - The patient's anginal syndrome during the past two weeks was assessed as: Class III according to the [place] Cardiovascular Society Classification System (CCS). [facility] Risk Factors The patient risk factors include:prior PCI;prior MS;cerebrovascular disease, family history of premature CAD appeared at age 45, insulin-treated diabetes mellitus, chronic lung disease, last creatinine: 0.8 mg/dl, creatinine clearance: 55.84 ml/min, dyslipidemia, Current - Every day tobacco use and prior MS. Additional Clinical History:This is a 63-year-old female with medical history significant for CAD s/p SERENITY to LCx/OM2, TIA, COPD, tobacco use, IDDM, remote history of breast cancer, HTN and HLD who has been having dyspnea on exertion and chest tightness. Was sent for stress test during which she became hypotensive and symptomatic. Nuclear portion did not show any perfusion defects. Referred for [facility]. Procedure Data Procedure Date Date: 09/17/2023Start: 09:20End: 09:45 The procedure was explained in detail to the patient. Risks, complications and alternative treatments were reviewed. Written consent was obtained. Entry Locations - Retrograde Percutaneous access was performed through the Right Radial artery (Primary location). A 6 Fr sheath was inserted. Hemostasis was successfully obtained using TR Band. Closure Comments: 13 cc's in TR . Procedure Medications - Oxygen NC 2 l/min. - Versed (Midazolam) I.V. 1 mg. - Fentanyl I.V. 50 mcg. - Lidocaine 2% S.C. Right Wrist 3 ml. - Versed (Midazolam) I.V. 0.5 mg. - Fentanyl I.V. 25 mcg. - Heparin I.V. 2500 units. - 0.9NS I.V. bolus 250 ml. - Versed (Midazolam) I.V. 0.5 mg. - Fentanyl I.V. 25 mcg. - Nitroglycerin I.A. 200 mcg. - Nitroglycerin I.A. 200 mcg. - Nitroglycerin I.A. 200 mcg. Sedation: My intra-service moderate sedation time was: from 9:18 to 9:43. Refer to procedural log for detailed chronological information. Contrast Material - Omnipaque 40 ml Diagnostic Catheters - A5F JR 4.0 DxTERITY DIAGNOSTIC CATHETERwas used for: Left heart catheterization. - A5F JR 4.0 DxTERITY DIAGNOSTIC CATHETERwas used for: Right coronary angiography. - A5F JL 3.5 DXTERITY DIAGNOSTIC CATHETERwas used for: Left coronary angiography. Fluoroscopy Time: Diagnostic: 2:15 minutes. Total: 2:15 minutes. Fluoroscopy Dose: Diagnostic: 63.7 mGy. Total: 63.7 mGy. Dose Area Product:Diagnostic: 4230 mGy/cm2. Total: 4230 mGy/cm2. Procedure Narrative We accessed the right radial artery using a 6 Sami slender sheath. We crossed into LV and recorded LVEDP and perform a pullback gradient. Diagnostic angiography with a JR4 and JL 3 5. Hemostasis with a regular TR band. Angiographic Findings Cardiac Arteries and Lesion Findings LAD: Mild luminal irregularities (<30%).Proximal LAD myocardial bridge. LCx: Mild luminal irregularities (<30%).Patent left circumflex stent.There is a previous stent on Prox CX. There is a previous stent on Dist CX. RCA: Lesion in Prox RCA: Proximal subsection.30% stenosis . Hemodynamics Condition: Rest O2 Consumption: Estimated: 141.32Heart Rate: 89 bpm Pressures (mmHg) +-----+ + !Site !Pressure ! +-----+ + !LV !117/-5 ,3 ! +-----+ + !AO !105/69 (84)! +-----+ + !LV !117/-5 ,3 ! +-----+ + !AO !105/71 (87)! +-----+ + Valve Gradients and Areas +------+----+----+----+-----+----+------+ !Valve !Peak!Mean!Area!Index!Flow!Source! +------+----+----+----+-----+----+------+ !Aortic!12 !13 ! ! ! ! ! +------+----+----+----+-----+----+------+ !Aortic!12 !13 ! ! ! ! ! +------+----+----+----+-----+----+------+ Shunts Oxygen Values O2 Capacity 187.68 O2 Consumption 141.32 Interventional Procedure Conclusions Diagnostic Summary 63-year-old female presenting with dyspnea on exertion abnormal stress test where she had hypotension during exercise. Hemodynamics: Normal systemic pressures. Normal LVEDP. There is no significant gradient across aortic valve pullback. Coronary anatomy: Right dominant circulation. Mild proximal RCA stenosis. Patent left circumflex stent. Mild disease in the LAD and circumflex. Myocardial bridge in the proximal LAD. Diagnostic Recommendations Aggressive secondary risk factor modification according to ATP III guidelines. Smoking cessation. Referral for cardiac rehabilitation. [facility] Diagnostic Recommendations: Medical therapy and/or counseling. Complications:None. Signatures VA LV function assessed as:Normal. Ejection Fraction - Method: Echocardiography. EF%: 60.Date: 01/23/2023. * Event Display: Cardiac Kosher Sealer Report Authored Date: Note * Event Display: Hemodynamic Procedure Report Authored Date: * Sudha Brady RN: PERFORM Event Display: Discharge/Transfer Note Hospital Authored Date: [id number] Nursing Discharge Note Entered On: 09/17/2023 13:43 EDT Performed On: 09/17/2023 13:43 EDT by Sudha Brady RN Nursing Discharge Note 2 Discharge Time : 09/17/2023 13:30 EDT Discharge Level of Care at Discharge : Home/Long Term/Foster Care Patient Left Unit Via : Wheelchair Patient Accompanied Off Unit with : Significant other DC Instructions Provided & Signed by Pt : Yes Patient Understands D/C Instructions : Yes Patient Instructions Discharge Signed : Yes Did Pt have Specialty Bed or Wound Vac : No Sudha Brady RN - 09/17/2023 13:43 EDT * Sudha Brady RN: PERFORM Event Display: Patient Education/Instruction Authored Date: [id number] Inpatient Adult Discharge Instructions [address] [address] Name: MELISSA CHATTERJEE : 1960 Visit: 09/17/2023 06:22:00 Current Date: 09/17/2023 11:04 Account: [id number] Inpatient Adult Discharge Instructions We would like to thank you for allowing us to assist you with your healthcare needs. The following includes patient education materials and information regarding your injury/illness. Our entire staffstrives to provide an excellent experience for our patients and their families. PLEASE ENSURE YOU FOLLOW-UP PER THE INSTRUCTIONS BELOW! ?? YOUR OPINION IS IMPORTANT TO US! Please complete the survey you may receive by mail or email. Your feedback will be used to make improvements to the healthcare experiences of our patients and their families. Surveys are administered by [employer] ?? If further treatment with your primary care physician or another doctor is recommended, it is important for you to keep the appointment. Call your primary care physician or return to the Emergency Department immediately if your condition worsens, fails to improve, or new symptoms develop. If you need to find a doctor, you can call [facility] for a referral at [phone] or toll free at [phone] or log in to [email or web address].. ?? [facility], in keeping with [facility] guidance, no longer requires face masks for staff, patientsor visitors in most situations. Similiar to time spent indoors at other locations, there is the chance that you were exposed to repiratory viruses during your time with us (such as flu or COVID-19). If you develop symptoms concerning for a viral respiratory infection, please seek testing (and treatment if indicated) from your medical provider or home test kit. ?? You can view and manage your care through the patient portal or by using a health care amber of your choosing. The [employer] is a website that allows you to securely view your medical information including your hospital discharge summary, office visit summaries, medications and follow-up visits. You can also request appointments, renew medications, and request access to your medical information using a health care amber of your choosing, or just ask a question. You can enroll at [email or web address] or register during your next office visit. You have been discharged from [facility], Patient Care Unit: CARE. If you have any questions regarding these instructions after you leave, please call us and we will be happy to assist you. [facility] Your Care Team Attending Physician Joseph Salmon MD Discharging Providers Erin Harmon DO Reason for Admission STABLE ANGINA STENTED CORONARY ART [facility]?PCI HV2 630 Tests Performed Below is a partial list of the tests performed during your hospitalization. You may have had other tests and procedures not included in this list. Please discuss all test results with your provider. Primary Care Provider Jose Wasserman MD , Adela Swann Advance Directive Health Care Proxy on File Yes - Health Care Proxy Discharge Vitals Temperature: 97.3 DegF Height: 148 cm Pulse Rate: 87 bpm Weight: 47.9 kg Respiratory Rate: 18 br/min Body Mass Index: 21.87 kg/m2 Systolic Blood Pressure: 118 mm Hg Body surface area: 1.4 Diastolic Blood Pressure: 81 mm Hg ?? Oxygen Saturation: 95 % ?? Studies Pending All tests and labs ordered during this hospital stay have been completed unless listed below. Please discuss all pending results with your provider listed above in these instructions. ?? Type and Screen What to do next Instructions From Your Doctor Discharge Orders You Need to Schedule the Following Appointments Follow Up with??Joseph Salmon MD When:??Within 1 week: call to discuss follow up visit Where: [address] [facility] [place] [address]- Discharge Medications MELISSA CHATTERJEE :1960 Visit Date:09/17/2023 Medications: Please continue your medications until treatment is completed or stopped by your provider. Medications not listed below should be discontinued. Discuss any questions related to medications with your provider. What How Much When Instructions Next Dose Unchanged Albuterol (Albuterol (Eqv- ProAir HFA) 90 mcg/ inh inhalation aerosol) USE 1PUFF BY MOUTH 4 TIMES A DAY NEEDED FOR FOR SHORTNESS OF BREATH OR WHEEZING ?? continue as prescribed Unchanged Aspirin (aspirin 81 mg oral delayed release tablet) 81 Milligram Oral Daily Duration: 30 Days continue as prescribed Unchanged Atorvastatin (atorvastatin 80 mg oral tablet) 1 tab(s) Oral Daily at Bedtime continue as prescribed Unchanged Cholecalciferol (Vitamin D3 1000 intl units oral tablet) 1 tab(s) Oral Daily continue as prescribed Unchanged dulaglutide (Trulicity Pen 1.5 mg/ 0.5 mL subcutaneous solution) 0.5 Milliliter Subcutaneous Injection Every week continue as prescribed Unchanged Insulin Aspart (NovoLOG FlexPen 100 units/ mL injectable solution) INJECT 4-8 UNITS SUBCUTANEOUSLY 3 TIMES A DAY WITH MEALS ?? continue as prescribed Unchanged insulin degludec (Tresiba FlexTouch 100 units/ mL subcutaneous solution) INJECT 46 UNITS DAILY ?? continue as prescribed Unchanged Lamotrigine (lamotrigine 25 mg oral tablet) 1 tab(s) Oral Twice a day continue as prescribed Unchanged Leflunomide (leflunomide 20 mg oral tablet) 1 tab(s) Oral Daily continue as prescribed Unchanged Letrozole (letrozole 2.5 mg oral tablet) 1 tab(s) Oral Daily Duration: 30 Days continue as prescribed Unchanged Lisinopril (lisinopril 5 mg oral tablet) 1 tab(s) Oral Daily continue as prescribed Unchanged Metoprolol (metoprolol 25 mg oral tablet) 0.5 tab(s) Oral Twice a day continue as prescribed Unchanged Nitroglycerin (nitroglycerin 0.4 mg sublingual tablet) 1 tab(s) Sublingual Every 5 minutes as needed for Chest Pain continue as prescribed Unchanged Pregabalin (pregabalin 200 mg oral capsule) TAKE 1 CAPSULE BY MOUTH EVERYDAY AT BEDTIME ?? continue as prescribed Unchanged Tizanidine (tiZANidine 2 mg oral tablet) TAKE 1 TABLET BY MOUTH AT BEDTIME NEEDED FOR MUSCLE SPASMS ?? continue as prescribed Unchanged Trazodone (traZODone 100 mg oral tablet) TAKE 1 TABLET BY MOUTH DAILY AT BEDTIME 90 DAYS ?? continue as prescribed Unchanged Varenicline (varenicline 1mg tablet) 1 tab(s) Oral Twice a day continue as prescribed Test Results Below is a partial list of the most recent Laboratory test results done prior to this discharge. You may have had other tests and procedures not included in this list. Please discuss all test resultswith your provider. Allergies (NKA means No Known Allergies) Enbrel Flagyl Motrin metFORMIN methylPREDNISolone shellfish Problems Active Problems??(5) Abnormal head CT?? Hypertensive urgency?? Migraine?? NSTEMI (non-ST elevated myocardial infarction)?? TIA (transient ischemic attack)?? Education Materials Below is the list of Educational Leaflet Providered with your Discharge Instructions. Surgery Radial Cath Approach Discharge Instructions?? Valuables and Belongings I fully understand and agree that [facility] accepts no responsibility for all my personal property including clothing, toilet articles, radios, jewelry, dentures, hearing aids, rings, money, or any other property that is in my possession or is brought to me after admission. I understand certain valuables may be placed in a hospital safe for a short period of time. I understand that the hospital is not liable for loss or damage due to accident, fire, or other natural occurrence while said property is in the safe. I accept full responsibility for any personal property that I keep with me, and will not hold the hospital responsible in case of loss or disappearance. I acknowledge that i have been encouraged to send valuables and belongings home. ?? Review of Valuable and Belonging List: With patient Date for Pt to Sign Valuables/Belongings: 09/17/23 10:26:00 ?? Other Discharge Information ? Pulmonary Rehab Status?? Pulmonary Rehab Discharge Status?? Respiratory Rate: 18 br/min ? Common Emergency Awareness Tips IS IT A STROKE? Act FAST and Check for these signs: FACE Does the face look uneven? ARM Does one arm drift down? SPEECH Does their speech sound strange? TIME Call at any sign of stroke ?? Heart Attack Signs Chest discomfort: Most heart attacks involve discomfort in the center of the chest and lasts more than a few minutes, or goes away and comes back. It can feel like uncomfortable pressure, squeezing, fullness or pain. Discomfort in upper body: Symptoms can include pain or discomfort in one or both arms, back, neck, jaw or stomach. Shortness of breath: With or without discomfort. Other signs: Breaking out in a cold sweat, nausea, or lightheaded. Remember, MINUTES DO MATTER. If you experience any of these heart attack warning signs, call to get immediate medical attention! ?? Smoking can increase your chances of developing chronic health problems and can cause harmful effects to other family members in your house. If you smoke, you are strongly encouraged to quit. Please call [facility] Link at [phone] or [phone]) or log in to [email or web address] for referrals to smoking cessation programs. ?? 830 Suicide & Crisis Lifeline is available 10/06 if you or someone you know needs to find a reason to keep living. By calling 545 you'll be connected to a skilled, trained counselor at a crisis center in your area. INPATIENT DISCHARGE INSTRUCTIONS SIGNATURE MELISSA PINK Location:[facility] Registration Date and Time:09/17/2023 06:22 EDT Primary Care Physician: Jose Wasserman MD , Adela Swann, Attending Physician: Luis Antonio REGALADO, Joseph, I SENMELISSA, have received the above patient education materials/instructions and have verbalized understanding. If ambulance or transport services are being used I further acknowledge being givena choice of service. ?? If you need to contact me, please call me at this number: . Patient/Supervisor [employer] Name: Patient/Supervisor [employer] Signature: Relationship to Patient: Witness Name/Signature: Date: * Sudha Brady RN: PERFORM Event Display: Patient Education Leaflets Authored Date: [id number] Surgery Radial Cath Approach Discharge Instructions ?? 278 Radial Cath Approach Discharge Instructions ?? Activity Take it easy the rest of the day. Limit your activity on the affected side.?? Act as if your arm is broken for 24 hours. No lifting with affected arm for 24 hours. No pushing or pulling with the affected arm. Do not reach or lift with the affected arm. Do not place excessive pressure on the wrist. ?? Precautions Due to intravenous sedation: It is recommended that someone stay with you for the first night after your procedure. Do not drive or operate hazardous machinery for 24 hours. Do not make legal decisions for 24 hours. Avoid alcohol for 24 hours. Unless directed otherwise, keep yourself hydrated. ?? Dressing/Incision Care You may remove the dressing 24 hours after your procedure. Replace with band aid for an additional 24 hours. You may shower and cleanse the site with soap & water then pat dry. Avoid submersion of site in water x 5 days. Cover the with a clean band aid daily until site is healed. If the band aid becomes soiled, replacewith a clean new one. Do not apply any ointments, lotions, gels or powders to the puncture site. ?? When to contact your doctor If any of the following signs of infection occur: Fever greater than 100 degrees F Increased pain Drainage, redness or warmth at puncture site Tingling of the fingers and hand that last longer than 3 days Slight bubble of blood or bleeding from site: apply manual pressure and notify your doctor ?? Emergency situations: Bleeding from the site that will not stop: apply manual pressure and notify your doctor Profuse bleeding streaming from the puncture site: Apply manual pressure and notify your doctor immediately If your hand becomes bluish, cold to the touch, or painful, notify your doctor immediately or go toEmergency Department. For these emergent situations: If unable to contact your physician, call 911. ?? Patient Care team information Care Team Personnel Name: Taylor Hickman Position: S RN Member Role: Primary Care Nurse Name: Donna Lewis RN Position: S RN Member Role: Primary Care Nurse Name: Hernandez Ng III, RN Position: S RN Member Role: Primary Care Nurse Name: Adela Gipson MD Position: Reference Physician Member Role: PCP Address: Address: [address] [place] [address] [address] [place] [address]- Name: Rossi Phillips RN Position: [facility] RN Member Role: Primary Care Nurse Name: Lelia Cleaning RN Position: S RN Member Role: Primary Care Nurse Care Team Related Persons Name: CHARLENE CHATTERJEE Address: home [address] [place] [address] Name: DELL FERNANDEZ Address: home [address] [place] [address]
[2024-03-05 12:12] VITALS: BP 110/72; BMI 21.5
--- NOTE | 2024-03-05 12:12 | MHC.PC.OV ---
Vital Signs 03/05/24 12:12 Height 4 ft 10 in Weight 103 lb BMI 21.5 BP 110/72 Blood Pressure Location Lt brachial Position Sitting Intake Visit Reasons: diverticulitis Intake Note: Patient here for follow up diverticulitis , seen at [facility] and [facility] Label Cutter Required: No Accompanied by: Self / Same As Patient Allergies dog dander [DOGS] Allergy (Intermediate, Verified 03/05/24 12:43) Respiratory distress shellfish derived Allergy (Intermediate, Verified 03/05/24 12:43) Hives methylprednisolone Allergy (Verified 03/05/24 12:43) Rash etanercept [From Enbrel] Adverse Reaction (Intermediate, Verified 03/05/24 12:43) Facial Swelling ibuprofen [Ibuprofen] Adverse Reaction (Intermediate, Verified 03/05/24 12:43) STOMACH UPSET, abdominal pain, nausea and vomiting metformin Adverse Reaction (Intermediate, Verified 03/05/24 12:43) Diarrhea metronidazole [From FLAGYL] Adverse Reaction (Intermediate, Verified 03/05/24 12:43) Diarrhea prednisone Adverse Reaction (Intermediate, Verified 03/05/24 12:43) hallucinations, higher than 20 Medication List - Last Reconciled 03/05/24 by Adela Wasserman MD albuterol sulfate 90 mcg/actuation 2 inhalations inhalation Q4H PRN aspirin 81 mg PO DAILY 90 days blood sugar diagnostic (FreeStyle Lite Strips) Use 1 test strip three times a day capsaicin-menthol 0.025-1.25 % (Salonpas (capsaicin-menthol)) 1 patch topical DAILY [clamp on tub safety rail As directed] dulaglutide (Trulicity) 1.5 mg (0.5 mL) subcut TH@0900 dulaglutide (Trulicity) 0.75 mg (0.5 mL) subcut QWEEK 30 days [ez russian language instructor bed assist support As directed] famotidine 20 mg PO BEDTIME 90 days ildpyrwqcya-gzwsehocf-fzztfnvu 200-62.5-25 mcg (Trelegy Ellipta) 1 ea inhalation DAILY folic acid 1 mg PO DAILY ipratropium bromide 2.5 mL inhalation Q6H PRN lancets (FreeStyle Lancets) Use 1 lancet once a day letrozole 2.5 mg PO DAILY levalbuterol tartrate 45 mcg/actuation 2 puffs inhalation Q4-6H PRN 30 days linaclotide (Linzess) 145 mcg PO QAM 30 days mesalamine 3.6 grams (3 x 1.2 gram) PO DAILY 30 days methotrexate sodium 15 mg (6 x 2.5 mg) PO QWEEK morphine 15 mg PO Q6H PRN ondansetron 4 mg PO Q8H PRN oxycodone mg PO pantoprazole 40 mg PO BID pen needle, diabetic (Comfort EZ Pen Roxana) Use 1 pen needle 6 times a day pregabalin (Lyrica) 200 mg PO BID sennosides-docusate sodium 8.6-50 mg (Senna with Docusate Sodium) 2 tab-caps (2 x 8.6-50 mg) PO BEDTIME 60 days Shower Chair As directed trazodone 100 mg PO BEDTIME 90 days walker with seat Tobacco use date assessed: 11/27/23 Dental Screening Dental Screen Date: 01/29/24 HPI HPI Comments History of Present Illness Details This is a 63-year-old female with diabetes mellitus type 2, bipolar disorder, rheumatoid arthritis and COPD that comes today as a hospital discharge follow-up from [facility] with discharge date 02/21/2024 due to acute diverticulitis. She had abdominal pain 3 days before going to ER. She went to [place] and started Augmentin but had to stop because it interferes with methotrexate. Had a CT scan of abdomen and pelvis showing acute uncomplicated diverticulitis. Blood work showed no acute abnormality. Was prescribed cefdinir which she completed. Had an episode of diverticulitis in October, then in January and now in February. Will be referred to general surgery for evaluation. A1c within goal. Rheumatoid arthritis is follow by Rheumatology and is currently on methotrexate. COPD stable with Trelegy and this is follow by windows systems engineer Dr. Irby. Bipolar disorder has been in remission. [facility] Medical History (Updated 03/05/24 @ 13:15 by Adela Wasserman MD) Breast cancer Stable angina HTN (hypertension) longterm (current) use 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 T2DM (type 2 diabetes mellitus) Acute respiratory distress Hospital discharge follow-up Tendonitis of ankle or foot Colitis Cough Anxiety CAD (coronary artery disease) HLD (hyperlipidemia) T2DM (type 2 diabetes mellitus) COPD exacerbation Hyperkalemia Atherosclerotic cardiovascular disease GERD (gastroesophageal reflux disease) CVA (cerebral vascular accident) Breast pain, right Rash Bloody diarrhea PAD (peripheral artery disease) Hyperlipidemia LDL goal <100 COPD (chronic obstructive pulmonary disease) Infiltrating ductal carcinoma of left breast, stage 2 Insomnia Dyslipidemia Bipolar 1 disorder, depressed Cough Restrictive airway disease Hypothyroid IDDM (insulin dependent diabetes mellitus) Vitamin D deficiency Osteoporosis Hyperparathyroidism Thyroid nodule Depression Fibromyalgia Seropositive rheumatoid arthritis Reactive airways dysfunction syndrome Allergic rhinitis Irritable bowel Anxiety Bronchial asthma Diabetes type 2, uncontrolled Hypertension Surgical History Hx of sigmoidoscopy History of bronchoscopy Hx of endoscopy H/O cardiac catheterization History of lumpectomy of left breast History of pubovaginal sling History of esophagogastroduodenoscopy (EGD) History of tubal ligation History of colonoscopy History of bunionectomy of both great toes H/O: hysterectomy Family History Mother Diabetes HTN (hypertension) Uterus cancer Malignant tumor of head Breast cancer Father Diabetes HTN (hypertension) CVD (cardiovascular disease) Heart problem Maternal Aunt Breast cancer Brother Myocardial infarction S/P CABG x 4 Family/Other FH: mental illness Family/Other Lung cancer Other Mental health disorder Social History Household Members: Family Household Members Other:: sister Housing: House Are you a primary youth care professional to a significant other at home: No Do you presently have visiting nurse or other home services: Yes (sister is ELECTRIC MOTORS SALESPERSON) Unable to assess alcohol history related to: Unknown Alcohol intake: never Patient Tobacco Use Status: Current everyday Tobacco user Tobacco use type: Cigarette Cigarette Packs Per Day: 0.5 Cigarettes Per Day: 2 Years Smoked: 48 Packs Per Year: 24 Packs per year/per ci.80 e-Cigarette/Vaping Use: Never Used Second Hand Smoke Exposure: No Substance Use Type: Marijuana Advance Directives Date on File: 12/22/21 service: No Current occupational status: disabled Current occupation: rt handed Cognitive needs: No Hearing needs: No Vision needs: Yes Questionnaire Thrive Questionnaire Date Thrive assessed: 12/12/23 FLAVIA-7 AMB Questionnaire FLAVIA-7 Date FLAVIA - 7 assessed: 11/27/23 Source: Developed by Waqsa Owenet B.W. Rashad, Gilmar Szymanski and colleagues, with an educational chris from [employer]. Review of Systems Const All systems reviewed & are unremarkable except as noted in HPI and below Eyes Reports no additional complaints, Denies change in vision and Denies other visual disturbances Card Denies chest pain at rest, Denies chest pain with activity, Denies edema, Denies irregular heart rhythm, Denies claudication, Denies dyspnea, Denies dyspnea on exertion, Denies orthopnea, Denies paroxysmal nocturnal dyspnea and Denies slow heart rate Resp Denies cough, Denies dyspnea and Denies dyspnea on exertion GI Reports abdominal pain, Denies change in bowel habits, Denies excessive flatus, Denies nausea and Denies vomiting Physical exam (Primary Care) Vital Signs: Last Vital Signs BP 110/72 03/05/24 12:12 BMI result Body Mass Index 21.5 Tobacco/Smoking Status: Tobacco use Status Tobacco use date assessed 11/27/23 03/05/24 12:15 Patient Tobacco Use Status Current everyday Tobacco 03/05/24 12:15 Tobacco use type Cigarette 03/05/24 12:15 e-Cigarette/Vaping Use Never Used 03/05/24 12:15 Thrive Assessment: Date of Thrive Assessment Date Thrive assessed 12/12/23 03/05/24 12:15 Resp Effort & Inspection: normal respiratory effort Auscultation: clear to auscultation bilaterally Cardio Jugular venous distension: no JVD Rate: regular rate Rhythm: regular rhythm Heart sounds: S1 normal heart sound present and S2 normal heart sound present GI Inspection: Yes normal to inspection Palpation (GI): Soft to palpation and Tenderness to palpation present (GI) periumbilically Auscultation: normal bowel sounds Skin General skin exam: no rashes or lesions noted Results AMB Hemoglobin A1c AMB Hemoglobin A1c 6.2 % Last Edit by KENNY Coronel on 03/05/24 12:31 Results Reviewed Results Reviewed: Laboratory Last Values Hgb A1c (Clinic) 6.2 % (4.0-6.0) H 03/05/24 12:30 Assessment and Plan Assessment & Plan (1) Hospital discharge follow-up: Code(s): Z09 - Encounter for follow-up examination after completed treatment for conditions other than malignant neoplasm Plan: Hospital discharge date 02/21/2024 due to uncomplicated acute diverticulitis. Has CT scan of the abdomen, labs and urine and also EKG. Was prescribed cefdinir which she completed treatment and feels markedly improved. Has had multiple episodes of diverticulitis since October 2023 and will be referred to surgery. (2) COPD (chronic obstructive pulmonary disease): Code(s): J44.9 - Chronic obstructive pulmonary disease, unspecified Qualifiers: COPD type: unspecified COPD Qualified Code(s): J44.9 - Chronic obstructive pulmonary disease, unspecified Plan: Continue Trelegy. Use rescue inhaler as needed. Follow-up with pulmonology. (3) Diabetes mellitus: Code(s): E11.9 - Type 2 diabetes mellitus without complications Plan: Continue Trulicity. A1c goal is equal or less than 7% (4) Bipolar 1 disorder, depressed: Code(s): F31.9 - Bipolar disorder, unspecified Plan: In remission. (5) Seropositive rheumatoid arthritis: Comment: [place]: 04/2021- 06/2022- stopped due to severe COPD requiring long standing azithromycin Plaquenil: approx. 02/2021-May 2021 self stopped Enbrel: approx. 02/2021 ordered after cleared for hep A, stopped due to allergy Sulfasalazine: approx. 02/2019- 02/2021 - restarted 09/27/2022 -04/2023 stopped due to heaedache and nausea Methorexate: approx. 11/2016-12/2018 started in [facility]. Diagnosed with breast CA so methotrexate discontinued. Changed to sulfsalazine 500mg 2 tabs BID to prevent lung fibrosis as patient was receiving radiation therapy for her breast CA. Completed Radiation therapy February 2019. OnTamoxifen but had side effects so was started on Letrozole in May 2019. Xeljanz: approx. 03/2018-04/2018 Cimzia: aprrox.05/2017- did not take Humira: dates unknown Leflunomide: many years ago, then approx. 08/2020-02/2021 Diagnosed 25 years ago Code(s): M05.9 - Rheumatoid arthritis with rheumatoid factor, unspecified Plan: Continue methotrexate and folic acid. Follow-up with rheumatology. (6) Diverticulitis: Code(s): K57.92 - Diverticulitis of intestine, part unspecified, without perforation or abscess without bleeding Orders: Orders AMB Hemoglobin A1c Today E11.65 - Type 2 diabetes mellitus with hyperglycemia Referrals General Surgery Referral K57.92 - Diverticulitis of intestine, part unspecified, without perforation or abscess without bleeding Coding Level of Care Code TCM Mod MDM <= 14 Days Diagnoses Hospital discharge follow-up Z09 Chronic obstructive pulmonary disease, unspecified COPD type J44.9 COPD type: unspecified COPD Diabetes mellitus E11.9 Bipolar 1 disorder, depressed F31.9 Seropositive rheumatoid arthritis M05.9 Diverticulitis K57.92 Time Spent (min) 26
== END 2024-03-05 12:56 | disposition home or self-care (01) ==
LOC: HO.HMGH 12:07
PROVIDERS: PCP Internal Medicine; Visit Provider Internal Medicine
DX: J44.9 Chronic obstructive pulmonary disease, unspecified (principal); F31.9 Bipolar disorder, unspecified; M05.9 Rheumatoid arthritis with rheumatoid factor, unspecified; E11.65 Type 2 diabetes mellitus with hyperglycemia; Z09 Encounter for follow-up examination after completed treatment for conditions other than malignant neoplasm; K57.92 Diverticulitis of intestine, part unspecified, without perforation or abscess without bleeding
CPT/HCPCS: 83036; 99213

== ENCOUNTER 2024-03-25 14:03 | Emergency (ER) | payer OTHER, SELFPAY ==
[2024-03-04 09:33] VITALS: BP 96/60; BP 96/66; BMI 22.5
--- NOTE | ~2024-03-25 | CT_ITS ---
EXAMINATION: CT ABDOMEN AND PELVIS WITH CONTRAST CLINICAL INFORMATION: Abdominal pain. COMPARISON: 02/19/2024 TECHNIQUE: Multidetector volumetric images were obtained from the superior aspect of the liver through the pubic symphysis following administration 85 mL of Omnipaque 350 intravenous contrast. Sagittal and coronal reformatted images were obtained on the technologist's workstation. Oral contrast: No This CT examination was performed using dose optimization techniques as appropriate, variously including the following: *Automated exposure control *Adjustment of mA and/or kV according to patient size (this includes techniques or standardized protocols for targeted exams where dose is matched to indication/reason for exam; i.e. extremities or head) *Use of iterative reconstruction technique DLP: 317 mGy-cm FINDINGS: LUNG BASES: The visualized lung bases are unremarkable. LIVER, GALLBLADDER, AND BILIARY TREE: The liver is decreased in attenuation. No focal hepatic lesion or biliary ductal dilatation is present. The gallbladder is unremarkable with no evidence of radiopaque gallstones, gallbladder wall thickening, or obvious pericholecystic inflammatory changes. PANCREAS: No ductal dilatation. SPLEEN: Not enlarged. ADRENAL GLANDS: No adrenal mass. KIDNEYS AND URETERS: The kidneys are symmetric in size and enhancement. No hydronephrosis. No perinephric stranding. BLADDER: Unremarkable. GASTROINTESTINAL TRACT: Irregular wall thickening of the mid sigmoid colon. Subtle pericolonic inflammatory change. Underlying diverticular disease. No small bowel obstruction. Moderate fecal retention in the colon. Appendix is within normal limits. ABDOMINAL WALL: No significant hernia is appreciated. LYMPH NODES: No bulky lymphadenopathy. VASCULAR: Normal caliber abdominal aorta. PELVIC VISCERA: Uterus is surgically absent. OSSEOUS STRUCTURES: No destructive bone lesions. CT/CT abdomen pelvis w IV con IMPRESSION: Early acute diverticulitis of the sigmoid colon. Follow-up imaging after treatment is advised. Hepatic steatosis.
--- NOTE | ~2024-03-25 | CT_ITS ---
EXAMINATION: CT HEAD WITHOUT CONTRAST CT CERVICAL SPINE WITHOUT CONTRAST CLINICAL INFORMATION: Posterior headache. Neck pain. COMPARISON: CT head, CT cervical spine April 24, 2023. TECHNIQUE: Imaging was performed from the skull base to vertex without intravenous administration of contrast. In addition, helical noncontrast CT imaging was acquired through the cervical spine and source images were reviewed along with axial reconstructions and sagittal and coronal MPRs. [This CT examination was performed using dose optimization techniques as appropriate, variously including the following: *Automated exposure control *Adjustment of mA and/or kV according to patient size (this includes techniques or standardized protocols for targeted exams where dose is matched to indication/reason for exam; i.e. extremities or head) *Use of iterative reconstruction technique] DLP: 629+275 mGy-cm FINDINGS: HEAD: No intracranial mass, hemorrhage, or midline shift is visualized. The ventricles and sulci are proportional. No extra-axial collections are identified. Stable focal encephalomalacia area in the medial left occipital lobe unchanged since prior CAT scan April 24, 2023. The paranasal sinuses and mastoid air cells are well aerated. CERVICAL SPINE: There is no evidence of acute cervical spine fracture. Vertebral bodies remain normal in height. Cervical vertebrae have normal alignment. There is multilevel degenerative spondylosis of the cervical spine with disc height narrowing and endplate spurs and facet joint arthrosis No pre- or paravertebral soft tissue abnormality is identified. Limited assessment of the lung apices is unremarkable. CT/CT head/brain wo IV con IMPRESSION: 1. No acute intracranial pathology. 2. No CT evidence of acute cervical spine fracture or traumatic subluxation
--- NOTE | ~2024-03-25 | CT_ITS ---
EXAMINATION: CT HEAD WITHOUT CONTRAST CT CERVICAL SPINE WITHOUT CONTRAST CLINICAL INFORMATION: Posterior headache. Neck pain. COMPARISON: CT head, CT cervical spine April 24, 2023. TECHNIQUE: Imaging was performed from the skull base to vertex without intravenous administration of contrast. In addition, helical noncontrast CT imaging was acquired through the cervical spine and source images were reviewed along with axial reconstructions and sagittal and coronal MPRs. [This CT examination was performed using dose optimization techniques as appropriate, variously including the following: *Automated exposure control *Adjustment of mA and/or kV according to patient size (this includes techniques or standardized protocols for targeted exams where dose is matched to indication/reason for exam; i.e. extremities or head) *Use of iterative reconstruction technique] DLP: 629+275 mGy-cm FINDINGS: HEAD: No intracranial mass, hemorrhage, or midline shift is visualized. The ventricles and sulci are proportional. No extra-axial collections are identified. Stable focal encephalomalacia area in the medial left occipital lobe unchanged since prior CAT scan April 24, 2023. The paranasal sinuses and mastoid air cells are well aerated. CERVICAL SPINE: There is no evidence of acute cervical spine fracture. Vertebral bodies remain normal in height. Cervical vertebrae have normal alignment. There is multilevel degenerative spondylosis of the cervical spine with disc height narrowing and endplate spurs and facet joint arthrosis No pre- or paravertebral soft tissue abnormality is identified. Limited assessment of the lung apices is unremarkable. CT/CT cervical spine wo IV con IMPRESSION: 1. No acute intracranial pathology. 2. No CT evidence of acute cervical spine fracture or traumatic subluxation
[2024-03-25 14:35] VITALS: BP 145/89; PULSE 93; RESP 16; TEMP 37.1; O2SAT 98; BMI 21.7
--- NOTE | 2024-03-25 14:39 | ED.ABDPAIN ---
HPI - Abdominal Pain General Chief Complaint: Abdominal Pain Stated Complaint: Abdominal and Spine Pain Time Seen by Provider: 03/25/24 15:20 Source: patient Mode of arrival: ambulatory Limitations: no limitations History of Present Illness HPI narrative: 63 year old female PMH: kidney stones, diverticulitis, polyneuropathy, gastroparesis, hypokalemia, anxiety, diabetes, COPD, CAD, stents in the past, Peripheral arterial disease, DM non compliant, bipolar, fibromyalgia Related Data Home Medications ?Medication ?Instructions ?Recorded ?Confirmed albuterol sulfate 90 mcg/actuation 2 inh inhalation Q4H PRN Shortness 08/23/23 03/05/24 aerosol inhaler Of Breath Or Wheezing pantoprazole 40 mg tablet,delayed 40 mg PO BID 09/27/23 03/05/24 release fluticasone fur. 200 mcg-umeclid 1 ea inhalation DAILY 02/06/24 03/05/24 62.5 mcg-vilant 25 mcg inhalat.powder (Trelegy Ellipta) oxycodone 5 mg tablet mg PO 03/05/24 03/05/24 Previous Rx's ?Medication ?Instructions ?Recorded lancets 28 gauge (FreeStyle #100 ea 06/07/22 Lancets) walker #1 ea 02/08/23 aspirin 81 mg tablet,delayed 81 mg PO DAILY 90 days #90 tabs 06/30/23 release levalbuterol tartrate 45 2 puff inhalation Q4-6H PRN 08/20/23 mcg/actuation aerosol inhaler shortness of breath 30 days #15 grams ipratropium bromide 0.02 % 2.5 ml inhalation Q6H PRN 10/22/23 solution for inhalation shortness of breath or wheezing #150 mL pregabalin 200 mg capsule (Lyrica) 200 mg PO BID #60 caps 11/13/23 sennosides 8.6 mg-docusate sodium 2 tab-cap (2 x 8.6-50 mg) PO 11/22/23 50 mg tablet (Senna with Docusate BEDTIME 60 days #120 tabs Sodium) blood sugar diagnostic (FreeStyle #100 ea 11/27/23 Lite Strips) pen needle, diabetic 31 gauge x #200 ea 11/27/23/16 (Comfort EZ Pen [place]) mesalamine 1.2 gram tablet,delayed 3.6 g (3 x 1.2 gram) PO DAILY 30 12/13/23 release days #90 tabs letrozole 2.5 mg tablet 2.5 mg PO DAILY #90 tabs 12/19/23 folic acid 1 mg tablet 1 mg PO DAILY #90 tabs 12/27/23 methotrexate sodium 2.5 mg tablet 15 mg (6 x 2.5 mg) PO QWEEK #72 12/27/23 tabs dulaglutide 1.5 mg/0.5 mL 1.5 mg (0.5 mL) subcut TH@0900 #6 12/30/23 subcutaneous pen injector mL (Trulicity) Shower Chair #1 ea 01/15/24 clamp on tub safety rail #1 ea 01/15/24 ez maintenance engineer oil field bed assist support #1 ea 01/15/24 linaclotide 145 mcg capsule 145 mcg PO QAM 30 days #30 caps 01/23/24 (Linzess) famotidine 20 mg tablet 20 mg PO BEDTIME 90 days #90 tabs 01/31/24 capsaicin-menthol 0.025 %-1.25 % 1 patch topical DAILY #6 ea 02/06/24 topical patch (Salonpas (capsaicin-menthol)) morphine 15 mg immediate release 15 mg PO Q6H PRN pain #14 tabs 02/19/24 tablet ondansetron 4 mg disintegrating 4 mg PO Q8H PRN nausea and 02/19/24 tablet vomiting #20 tabs dulaglutide 0.75 mg/0.5 mL 0.75 mg (0.5 mL) subcut QWEEK 30 03/19/24 subcutaneous pen injector days #2.5 mL (Trulicity) trazodone 100 mg tablet 100 mg PO BEDTIME 90 days #90 tabs 03/21/24 amoxicillin-potassium clavulanate 1 tab PO BID 10 days #20 tabs 03/25/24 1,000 mg-62.5 mg tablet,ext.rel 12hr (Augmentin XR) Allergies Allergy/AdvReac Type Severity Reaction Status Date / Time dog dander [DOGS] Allergy Intermediate Respiratory Verified 03/25/24 14:38 distress shellfish derived Allergy Intermediate Hives Verified 03/25/24 14:38 methylprednisolone Allergy Rash Verified 03/25/24 14:38 etanercept [From Enbrel] AdvReac Intermediate Facial Verified 03/25/24 14:38 Swelling ibuprofen [Ibuprofen] AdvReac Intermediate STOMACH Verified 03/25/24 14:38 UPSET, abdominal pain, nausea and vomiting metformin AdvReac Intermediate Diarrhea Verified 03/25/24 14:38 metronidazole [From FLAGYL] AdvReac Intermediate Diarrhea Verified 03/25/24 14:38 prednisone AdvReac Intermediate hallucinations, Verified 03/25/24 14:38 higher than 20 PMFSH Past Medical History Medical History (Updated 03/25/24 @ 17:31 by Kalin Calvillo DO) Breast cancer Stable angina HTN (hypertension) [facility] (current) use 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 T2DM (type 2 diabetes mellitus) Acute respiratory distress Hospital discharge follow-up Tendonitis of ankle or foot Colitis Cough Anxiety CAD (coronary artery disease) HLD (hyperlipidemia) T2DM (type 2 diabetes mellitus) COPD exacerbation Hyperkalemia Atherosclerotic cardiovascular disease GERD (gastroesophageal reflux disease) CVA (cerebral vascular accident) Breast pain, right Rash Bloody diarrhea PAD (peripheral artery disease) Hyperlipidemia LDL goal <100 COPD (chronic obstructive pulmonary disease) Infiltrating ductal carcinoma of left breast, stage 2 Insomnia Dyslipidemia Bipolar 1 disorder, depressed Cough Restrictive airway disease Hypothyroid IDDM (insulin dependent diabetes mellitus) Vitamin D deficiency Osteoporosis Hyperparathyroidism Thyroid nodule Depression Fibromyalgia Seropositive rheumatoid arthritis Reactive airways dysfunction syndrome Allergic rhinitis Irritable bowel Anxiety Bronchial asthma Diabetes type 2, uncontrolled Hypertension Surgical History Hx of sigmoidoscopy History of bronchoscopy Hx of endoscopy H/O cardiac catheterization History of lumpectomy of left breast History of pubovaginal sling History of esophagogastroduodenoscopy (EGD) History of tubal ligation History of colonoscopy History of bunionectomy of both great toes H/O: hysterectomy Family History Family History Mother Diabetes HTN (hypertension) Uterus cancer Malignant tumor of head Breast cancer Father Diabetes HTN (hypertension) CVD (cardiovascular disease) Heart problem Maternal Aunt Breast cancer Brother Myocardial infarction S/P CABG x 4 Family/Other FH: mental illness Family/Other Lung cancer Other Mental health disorder Social History Social History Household Members: Family Household Members Other:: sister Housing: House Are you a primary career transition specialist to a significant other at home: No Do you presently have visiting nurse or other home services: Yes (sister is LIMITED RADIOLOGY TECHNICIAN) Unable to assess alcohol history related to: Unknown Alcohol intake: never Patient Tobacco Use Status: Current everyday Tobacco user Tobacco use type: Cigarette Cigarette Packs Per Day: 0.5 Cigarettes Per Day: 2 Years Smoked: 48 e-Cigarette/Vaping Use: Never Used Second Hand Smoke Exposure: No Substance Use Type: Marijuana Advance Directives: Yes Advance Directives on File: Yes Advance Directives Date on File: 12/22/21 service: No Current occupational status: disabled Current occupation: rt handed Cognitive needs: No Hearing needs: No Vision needs: Yes Physical Exam ED Vital Signs: Vital Signs - 24 hr 03/25/24 14:35 03/25/24 17:15 Temperature 98.7 F 98.1 F Pulse Rate 93 78 Respiratory Rate 16 16 Blood Pressure 145/89 H 124/66 Pulse Oximetry 98 94 Oxygen Delivery Method Room Air Room Air BMI result Body Mass Index 21.7 Course Course Course Narrative: This is a Rapid Medical Examination (RME) performed by Ran Carreno PA-C in triage. Full HPI, ROS, assessment and treatment plan per primary provider in the Main ED. 63 yo female hx of diverticulitis, renal stones here with suprapubic abdominal pain radiating to left lower quadrant and left flank x2 days. Admits that she has been retaining a lot of urine, feels like she empties her bladder and has to urinate again. Endorses nausea and vomiting. Denies diarrhea, dysuria, hematuria. Guarding abdomen. Diffusely tender to palpation. left cvat. Plan: labs, UA, CT when patient has line in main ED Reevaluation(s) Reevaluation #1: Pain and fluids patient still clenching her stomach I will give some droperidol and Benadryl and reassess patient will be sent for CT head and neck as well she is now complaining of pain to her posterior head upper neck. Time: 15:47 Reevaluation #2: CT shows acute diverticulitis will start the patient on Augmentin I think the patient safe to go home patient is somnolent after getting droperidol and morphine Time: 17:27 Medical Decision Making Medical Decision Making [facility] Narrative: I will check labs urine send the patient for CT scan Differential Diagnosis Differential Diagnoses: The differential diagnosis associated with the presentation includes HS DKA dehydration acute surgical abdomen diverticulitis appendicitis medication noncompliance acute on chronic pain dehydration electrolyte abnormality Lab Data MDM Lab Attestation statement: I reviewed the patient's lab results. There is no blood in the urine 03/25/24 14:53 03/25/24 14:53 Labs: Lab Results 03/25/24 Range/Units 14:53 WBC 7.1 (4.8-10.8) X10*3/uL RBC 4.57 (4.20-5.50) X10*6/uL Hgb 13.2 (12.0-16.0) g/dl Hct 39.7 (37.0-47.0) % MCV 86.9 (80.0-98.0) fL MCH 28.9 (27.0-33.0) pg MCHC 33.2 (31.0-35.0) g/dl RDW 17.6 H (11.0-16.0) % Plt Count 291 (160-400) X10*3/uL MPV 9.8 (9.4-12.3) fL Immature Gran % (Auto) 0.1 (0.0-0.4) % Neut % (Auto) 52.2 (45-73) % Lymph % (Auto) 37.9 (20-40) % Hendricks % (Auto) 8.8 (2-11) % Eos % (Auto) 0.4 (0-4) % Baso % (Auto) 0.6 (0-2) % Lymph # (Auto) 2.7 (1.2-4.9) X10*3/uL Hendricks # (Auto) 0.6 (0.1-1.2) X10*3/uL Eos # (Auto) 0.0 (0.0-0.4) X10*3/uL Baso # (Auto) 0.0 (0.0-0.2) X10*3/uL Abs Immat Gran (auto) 0.01 (0.00-0.03) X10*3/uL Absolute Neuts (auto) 3.7 (2.0-8.3) x10*3/uL Absolute Nucleated RBC 0.000 (0.0-0.012) X10*3/uL Nucleated RBC % (auto) 0.0 (0.0-0.2) /100WBC Sodium 139 (135-145) mmol/L Potassium 4.6 (3.3-5.1) mmol/L Chloride 104 (96-108) mmol/L Carbon Dioxide 27 (22-29) mmol/L Anion Gap 13 (12-20) BUN 11 (9-16) mg/dL Creatinine 0.80 (0.5-1.4) mg/dL Estim Creat Clear Calc 47.6 Estimated GFR > 60 Random Glucose 91 (60-115) mg/dL Calcium 10.0 (8.4-10.2) mg/dL Magnesium 2.0 (1.6-2.6) mg/dL Total Bilirubin 0.4 (0.0-1.0) mg/dL AST 19 (5-31) U/L ALT 14 (0-31) U/L Alkaline Phosphatase 52 (39-117) U/L Total Protein 7.7 (6.5-8.0) g/dL Albumin 4.4 (3.5-5.0) g/dL Lipase 20 (8-78) U/L Urine Color Yellow Urine Appearance Clear Urine pH 6.0 (5.0-9.0) Ur Specific [place] 1.020 (1.005-1.025) Urine Protein Negative (Neg-Trace) mg/dL Urine Glucose (UA) Negative (Negative) mg/dL Urine Ketones Trace (Negative) mg/dL Urine Blood Negative (Negative) Urine Nitrite Negative (Negative) Ur Leukocyte Esterase Small (1+) H (Negative) Urine RBC 0-2 (0-2) /HPF Urine WBC 0-5 (0-5) /HPF Ur Squamous Epith Cells 0-2 (0-2) /HPF Urine Bacteria None Seen (None Seen) Hyaline Casts 0-2 (0-2) /LPF Medications Administered Discontinued Medications Generic Name Dose Route Start Last Admin Trade Name Freq PRN Reason Stop Dose Admin Diphenhydramine HCl 25 mg 03/25/24 15:46 03/25/24 16:34 Diphenhydramine Hcl 50 Mg/Ml Vial IVPUSH 03/25/24 15:47 25 mg ONCE ONE Administration Droperidol 1.25 mg 03/25/24 15:46 03/25/24 16:34 Droperidol 5 Mg/2 Ml Vial IVPUSH 03/25/24 15:47 1.25 mg ONCE ONE Administration Sodium Chloride 1,000 mls @ 999 mls/hr 03/25/24 15:30 03/25/24 15:39 Ns IV 03/25/24 16:30 999 mls/hr .Q1H1M ELDER Administration Iohexol 100 ml 03/25/24 16:01 03/25/24 16:11 Iohexol 350 Mg/Ml 100 Ml Infus..Btl IV 03/25/24 16:02 85 ml ONCE ONE Administration Lorazepam 2 mg 03/25/24 15:23 03/25/24 15:39 Lorazepam 2 Mg/Ml Vial IVPUSH 03/25/24 15:24 2 mg ONCE ONE Administration Morphine Sulfate 4 mg 03/25/24 15:21 03/25/24 15:39 Morphine Sulfate 4 Mg/Ml Cartridge IVPUSH 03/25/24 15:22 4 mg ONCE ONE Administration Protocol Ondansetron HCl 4 mg 03/25/24 15:21 03/25/24 15:39 Ondansetron Hcl 4 Mg/2 Ml Vial IVPUSH 03/25/24 15:22 4 mg ONCE ONE Administration Discharge Plan Discharge Clinical Impression: Diverticulitis Patient Disposition: Home, Self-Care Instructions: Diverticulitis (ED), Diverticulitis Diet (ED) Additional Instructions: Seen today in the emergency department for diverticulitis and abdominal pain. You had a CT and labs which did show early diverticulitis but otherwise normal labs. Please take the antibiotics as prescribed if you have any other concerns please do not hesitate to return to the emergency department Prescriptions: New amoxicillin-pot clavulanate [Augmentin XR] 1,000-62.5 mg tablet extended release 12 hr 1 tab PO BID 10 Days Qty: 20 0RF No Action (DME) lancets [FreeStyle Lancets] 28 gauge misc See Rx Instructions .Route Qty: 100 3RF Rx Instructions: Use 1 lancet once a day (DME) walker Misc See Rx Instructions .Route Qty: 1 0RF Rx Instructions: with seat aspirin 81 mg tablet,delayed release (DR/EC) 81 mg PO DAILY 90 Days Qty: 90 1RF Hold Instructions: resume 12/14 levalbuterol tartrate 45 mcg/actuation HFA aerosol inhaler 2 puff inhalation Q4-6H PRN (Reason: shortness of breath) 30 Days Qty: 15 3RF ipratropium bromide 0.02 % solution 2.5 ml inhalation Q6H PRN (Reason: shortness of breath or wheezing) Qty: 150 3RF pregabalin [Lyrica] 200 mg capsule 200 mg PO BID Qty: 60 1RF Trulicity 1.5 mg/0.5 mL pen injector 1.5 mg subcut TH@0900 Qty: 6 3RF (DME) Shower Chair Misc See Rx Instructions .Route Qty: 1 0RF Rx Instructions: As directed (DME) clamp on tub safety rail See Rx Instructions .Route .MEDSUPPLY Qty: 1 0RF Rx Instructions: As directed (DME) ez maintenance engineer oil field bed assist support See Rx Instructions .Route .MEDSUPPLY Qty: 1 0RF Rx Instructions: As directed famotidine 20 mg tablet 20 mg PO BEDTIME 90 Days Qty: 90 1RF Trulicity 0.75 mg/0.5 mL pen injector 0.75 mg subcut QWEEK 30 Days Qty: 2.5 0RF trazodone 100 mg tablet 100 mg PO BEDTIME 90 Days Qty: 90 0RF letrozole 2.5 mg Tablet 2.5 mg PO DAILY Qty: 90 3RF pantoprazole 40 mg tablet,delayed release (DR/EC) 40 mg PO BID morphine 15 mg tablet 15 mg PO Q6H PRN (Reason: pain) Qty: 14 0RF Rx Instructions: partial fill okay; Partial Fill upon patient request. ondansetron 4 mg tablet,disintegrating 4 mg PO Q8H PRN (Reason: nausea and vomiting) Qty: 20 0RF mesalamine 1.2 gram Tablet,Delayed Release (Dr/Ec) 3.6 g PO DAILY 30 Days Qty: 90 0RF (DME) pen needle, diabetic [Comfort EZ Pen [place]] 31 gauge x 5/16 needle See Rx Instructions .ROUTE .MEDSUPPLY Qty: 200 11RF Rx Instructions: Use 1 pen needle 6 times a day (DME) FreeStyle Lite Strips Strip MISCELLANEOUS DAILY Qty: 100 1RF Rx Instructions: Use 1 test strip three times a day oxycodone 5 mg tablet PO albuterol sulfate 90 mcg/actuation HFA aerosol inhaler 2 inh inhalation Q4H PRN (Reason: Shortness Of Breath Or Wheezing) sennosides-docusate sodium [Senna with Docusate Sodium] 8.6-50 mg tablet 2 tab-cap PO BEDTIME 60 Days Qty: 120 2RF Rx Instructions: Please take every other day at bedtime Linzess 145 mcg capsule 145 mcg PO QAM 30 Days Qty: 30 3RF methotrexate sodium 2.5 mg tablet 15 mg PO QWEEK Qty: 72 1RF folic acid 1 mg tablet 1 mg PO DAILY Qty: 90 1RF Trelegy Ellipta 200-62.5-25 mcg blister with device 1 ea inhalation DAILY Salonpas (capsaicin-menthol) 0.025-1.25 % adhesive patch,medicated 1 patch topical DAILY Qty: 6 4RF Rx Instructions: may leave on area for up to 8 hrs Referrals: Michael Garcia MD [Primary Care Provider] - (Please call follow-up with your primary care doctor) Print Language: Ecuadorean
[2024-03-25 14:57] LABS: MANUAL DIFF FLAG NO
[2024-03-25 15:01] LABS: Basophils Percent Auto 0.6 % (0-2); Eosinophils Percent Auto 0.4 % (0-4); Hematocrit 39.7 % (37.0-47.0); Hemoglobin 13.2 g/dl (12.0-16.0); Imm Gran Abs Auto 0.01 X10*3/uL (0.00-0.03); Imm Gran Pct Auto 0.1 % (0.0-0.4); Lymphocytes Absolute Auto 2.7 X10*3/uL (1.2-4.9); Lymphocytes Percent Auto 37.9 % (20-40); Mean Corpuscular HGB Conc 33.2 g/dl (31.0-35.0); Mean Corpuscular Hemoglobin 28.9 pg (27.0-33.0); Mean Corpuscular Volume 86.9 fL (80.0-98.0); Mean Platelet Volume 9.8 fL (9.4-12.3); Monocytes Absolute Auto 0.6 X10*3/uL (0.1-1.2); Monocytes Percent Auto 8.8 % (2-11); Neutrophils Absolute Auto 3.7 x10*3/uL (2.0-8.3); Neutrophils Percent Auto 52.2 % (45-73); Platelet Count 291 X10*3/uL (160-400); Red Blood Count 4.57 X10*6/uL (4.20-5.50); Red Cell Distribution Width 17.6 % (11.0-16.0); White Blood Count 7.1 X10*3/uL (4.8-10.8)
[2024-03-25 15:05] LABS: Appearance Urine Clear; Color Urine Yellow; Glucose Urine UA Negative (Negative); Leukocyte Esterase Urine Small (1+) (Negative); Nitrite Urine Negative (Negative); UMIC TRIGGER UACC YES; Urine Blood Negative (Negative); Urine Ketones Trace mg/dL (Negative); Urine Protein Negative (Neg-Trace)
[2024-03-25 15:16] LABS: Alanine Aminotransferase 14 U/L (0-31); Albumin Level 4.4 g/dL (3.5-5.0); Alkaline Phosphatase 52 U/L (39-117); Anion Gap 13 (12-20); Aspartate Amino Transferase 19 U/L (5-31); Bilirubin Total 0.4 mg/dL (0.0-1.0); Blood Urea Nitrogen 11 mg/dL (9-16); Carbon Dioxide 27 mmol/L (22-29); Chloride 104 mmol/L (96-108); Creatinine Clr Calc Pharmacy 47.6; Estimated Glomerular Filt Rate > 60; Glucose Random 91 mg/dL (60-115); Lipase 20 U/L (8-78); Potassium 4.6 mmol/L (3.3-5.1); Sodium 139 mmol/L (135-145); Total Protein 7.7 g/dL (6.5-8.0)
[2024-03-25 15:17] LABS: Bacteria Urine None Seen (None Seen); Hyaline Casts Urine 0-2 /LPF (0-2); RBC Urine 0-2 /HPF (0-2); Squamous Epithelial Cell Urine 0-2 /HPF (0-2); UACC Culture Trigger YES; WBC Urine 0-5 /HPF (0-5)
[2024-03-25] MEDS: Morphine Sulfate 4 MG/ML CARTRIDGE IVPUSH (15:39)
[2024-03-25] MEDS: LORazepam 2 MG/ML VIAL IVPUSH (15:39)
[2024-03-25] MEDS: ondansetron HCL 4 MG/2 ML VIAL IVPUSH (15:39)
[2024-03-25] MEDS: 0.9 % Sodium Chloride 1,000 ML 999 ML IV (15:39)
[2024-03-25] MEDS: iohexoL 350 MG/ML 100 ML INFUS..BTL IV (16:11)
[2024-03-25] MEDS: droPERidol 5 MG/2 ML VIAL 1.25 MG IVPUSH (16:34)
[2024-03-25] MEDS: diphenhydrAMINE HCL 50 MG/ML VIAL 25 MG IVPUSH (16:34)
[2024-03-25 17:15] VITALS: BP 124/66; PULSE 78; RESP 16; TEMP 36.7; O2SAT 94
[2024-03-25] MEDS: Amoxicillin/Potassium Clav 875 MG TABLET PO (18:40)
[2024-03-25 18:55] VITALS: BP 139/64; PULSE 76; RESP 16; TEMP 36.2; O2SAT 95
== END 2024-03-25 18:57 | disposition home or self-care (01) ==
PROVIDERS: Physician Assistant Medical; Emergency Provider Student in an Organized Health Care Education/Training Program; PCP Student in an Organized Health Care Education/Training Program
DX: K57.32 Diverticulitis of large intestine without perforation or abscess without bleeding (principal); R10.9 Unspecified abdominal pain; R11.0 Nausea; R51.9 Headache, unspecified; M54.2 Cervicalgia; Z79.899 Other long term (current) drug therapy
CPT/HCPCS: 36415; 70450; 72125; 74177; 80053; 81001; 81003; 83690; 83735; 85025; 87086; 96361; 96374; 96375; 99283; 99284; J1200; J1790; J2060; J2270; J2405; Q9967

== ENCOUNTER 2024-03-26 08:59 | Outpatient (AMB) | payer OTHER, SELFPAY ==
[2024-03-04 09:33] VITALS: BP 96/60; BP 96/66; BMI 22.5
--- NOTE | 2024-03-26 09:10 | MHC.OFFVIS ---
Vital Signs 03/26/24 09:14 Height 4 ft 10 in Weight 103 lb 6 oz BMI 21.6 BP 130/96 H Blood Pressure Location Lt brachial Position Sitting Pulse 112 H Intake Visit Reasons: Diverticulitis of intestine Intake Note: Patient was refer by Dr Garcia for diverticulitis of the intestine. Pt c/o: onset for months on and off, has seen gastro and given meds, was seen in the ED last night and given pain meds, admits to nausea, vomit, left abdomen pain, diarrhea/constipation, has been having chills and was given antbx in the ER has yet to picked them up Lifter/Driver Required: No Accompanied by: Self / Same As Patient Allergies dog dander [DOGS] Allergy (Intermediate, Verified 03/26/24 09:11) Respiratory distress shellfish derived Allergy (Intermediate, Verified 03/26/24 09:11) Hives methylprednisolone Allergy (Verified 03/26/24 09:11) Rash etanercept [From Enbrel] Adverse Reaction (Intermediate, Verified 03/26/24 09:11) Facial Swelling ibuprofen [Ibuprofen] Adverse Reaction (Intermediate, Verified 03/26/24 09:11) STOMACH UPSET, abdominal pain, nausea and vomiting metformin Adverse Reaction (Intermediate, Verified 03/26/24 09:11) Diarrhea metronidazole [From FLAGYL] Adverse Reaction (Intermediate, Verified 03/26/24 09:11) Diarrhea prednisone Adverse Reaction (Intermediate, Verified 03/26/24 09:11) hallucinations, higher than 20 Medication List - Last Reconciled 03/26/24 by Hayden Rodriguez MD albuterol sulfate 90 mcg/actuation 2 inhalations inhalation Q4H PRN amoxicillin-pot clavulanate 1,000-62.5 mg (Augmentin XR) 1 tab PO BID 10 days aspirin 81 mg PO DAILY 90 days blood sugar diagnostic (FreeStyle Lite Strips) Use 1 test strip three times a day capsaicin-menthol 0.025-1.25 % (Salonpas (capsaicin-menthol)) 1 patch topical DAILY [clamp on tub safety rail As directed] dulaglutide (Trulicity) 1.5 mg (0.5 mL) subcut TH@0900 dulaglutide (Trulicity) 0.75 mg (0.5 mL) subcut QWEEK 30 days erythromycin 1 g (2 x 500 mg) PO TID [ez repair supervisor bed assist support As directed] famotidine 20 mg PO BEDTIME 90 days dhqaxcuglbz-lcrciqvuw-gtsxswys 200-62.5-25 mcg (Trelegy Ellipta) 1 ea inhalation DAILY folic acid 1 mg PO DAILY ipratropium bromide 2.5 mL inhalation Q6H PRN lancets (FreeStyle Lancets) Use 1 lancet once a day letrozole 2.5 mg PO DAILY levalbuterol tartrate 45 mcg/actuation 2 puffs inhalation Q4-6H PRN 30 days levofloxacin 500 mg PO DAILY 7 days linaclotide (Linzess) 145 mcg PO QAM 30 days mesalamine 3.6 grams (3 x 1.2 gram) PO DAILY 30 days methotrexate sodium 15 mg (6 x 2.5 mg) PO QWEEK morphine 15 mg PO Q6H PRN neomycin 1 g (2 x 500 mg) PO TID 3 doses ondansetron 4 mg PO Q8H PRN pen needle, diabetic (Comfort EZ Pen Locke) Use 1 pen needle 6 times a day polyethylene glycol 3350 (Miralax) 17 grams PO DAILY pregabalin (Lyrica) 200 mg PO BID sennosides-docusate sodium 8.6-50 mg (Senna with Docusate Sodium) 2 tab-caps (2 x 8.6-50 mg) PO BEDTIME 60 days Shower Chair As directed trazodone 100 mg PO BEDTIME 90 days walker with seat HPI Comments Details: 63-year-old female patient well known to me with a previous history of breast cancer left breast presenting with complaints of abdominal pain in the left lower quadrant. She was evaluated in the emergency department on 03/25/2024. Patient was found to have tenderness in the left lower quadrant. Laboratories revealed a normal WBC. CT abdomen and pelvis revealed mild, uncomplicated sigmoid diverticulitis without abscess or perforation. She was subsequently placed on Augmentin for 10 days. She returns today reporting continued abdominal pain mainly in the left lower quadrant. This has persisted for the past 1.5 years without significant improvement. She reports multiple episodes of increased abdominal pain similar to the current episode. She presents today to discuss her surgical options. 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 T2DM (type 2 diabetes mellitus) Acute respiratory distress Hospital discharge follow-up Tendonitis of ankle or foot Colitis Cough Anxiety CAD (coronary artery disease) HLD (hyperlipidemia) T2DM (type 2 diabetes mellitus) COPD exacerbation Hyperkalemia Atherosclerotic cardiovascular disease GERD (gastroesophageal reflux disease) CVA (cerebral vascular accident) Breast pain, right Rash Bloody diarrhea PAD (peripheral artery disease) Hyperlipidemia LDL goal <100 COPD (chronic obstructive pulmonary disease) Infiltrating ductal carcinoma of left breast, stage 2 Insomnia Dyslipidemia Bipolar 1 disorder, depressed Cough Restrictive airway disease Hypothyroid IDDM (insulin dependent diabetes mellitus) Vitamin D deficiency Osteoporosis Hyperparathyroidism Thyroid nodule Depression Fibromyalgia Seropositive rheumatoid arthritis Reactive airways dysfunction syndrome Allergic rhinitis Irritable bowel Anxiety Bronchial asthma Diabetes type 2, uncontrolled Hypertension Surgical History Hx of sigmoidoscopy History of bronchoscopy Hx of endoscopy H/O cardiac catheterization History of lumpectomy of left breast History of pubovaginal sling History of esophagogastroduodenoscopy (EGD) History of tubal ligation History of colonoscopy History of bunionectomy of both great toes H/O: hysterectomy Family History Mother Diabetes HTN (hypertension) Uterus cancer Malignant tumor of head Breast cancer Father Diabetes HTN (hypertension) CVD (cardiovascular disease) Heart problem Maternal Aunt Breast cancer Brother Myocardial infarction S/P CABG x 4 Family/Other FH: mental illness Family/Other Lung cancer Other Mental health disorder Social History Household Members: Family Household Members Other:: sister Housing: House Are you a primary family member caretaker to a significant other at home: No Do you presently have visiting nurse or other home services: Yes (sister is CARBONATION EQUIPMENT OPERATOR) Unable to assess alcohol history related to: Unknown Alcohol intake: never Patient Tobacco Use Status: Current everyday Tobacco user Tobacco use type: Cigarette Cigarette Packs Per Day: 0.5 Cigarettes Per Day: 2 Years Smoked: 48 e-Cigarette/Vaping Use: Never Used Second Hand Smoke Exposure: No Substance Use Type: Marijuana Advance Directives Date on File: 12/22/21 service: No Current occupational status: disabled Current occupation: rt handed Cognitive needs: No Hearing needs: No Vision needs: Yes Review of Systems Const All systems reviewed & are unremarkable except as noted in HPI and below Denies chills, Denies fever(s) and Denies night sweats Card Denies chest pain and Denies dyspnea Resp Denies chest congestion, Denies cough and Denies dyspnea GI Reports as per HPI and Reports abdominal pain Reports nipple discharge Skin/Breast Reports breast swelling, Denies breast skin changes, Reports breast pain, Denies breast mass, Reports change in breast shape and Reports nipple discharge Adarsh/Lymph Denies lymphadenopathy Physical Exam Vital Signs: Last Vital Signs Pulse 112 H 03/26/24 09:14 BP 130/96 H 03/26/24 09:14 BMI result Body Mass Index 21.6 Const General: cooperative and no acute distress Nutritional Appearance: well nourished Orientation/consciousness: patient oriented x3 Limitations: no limitations HEENT Head: Yes normocephalic and Yes atraumatic Ears: hearing grossly normal bilaterally Resp Effort & Inspection: normal respiratory effort, no audible wheezes, no cough and no respiratory distress Cardio Jugular venous distension: no JVD GI Inspection: Yes normal to inspection Palpation (GI): Soft to palpation, Tenderness to palpation present (GI) in the LLQ, no guarding, not rigid and No hepatosplenomegaly present Percussion: Yes normal to percussion Auscultation: normal bowel sounds Rectal Exam - Female: deferred Abdomen image: 1. Area of marked tenderness left lower quadrant Skin Other: Warm, dry, no rash Neuro General: patient oriented x3 Extrem General: Yes no clubbing, cyanosis or edema Quality Reporting (2019) Adult ([facility] 138/[birth year]) Smoking risk assessment performed?: Yes Patient Tobacco Use Status: Current everyday Tobacco user Assessment & Plan Assessment & Plan (1) Diverticulosis of colon: Code(s): K57.30 - Diverticulosis of large intestine without perforation or abscess without bleeding Category: Medical Plan 63-year-old female patient with persistent abdominal pain in the left lower quadrant pain over a 1.5 year time period, found to have uncomplicated sigmoid diverticulitis on CT. She has persistent pain despite multiple courses of antibiotics. On examination she remains tender in the left lower quadrant. She is interested in proceeding to her surgical options. I recommended a hand assisted laparoscopic sigmoid colectomy and after discussion of the procedure, risks, and alternatives, she consents to the surgery. She will be scheduled at her earliest convenience. I will switch her antibiotics to Levaquin as she is sensitive to penicillin and Flagyl. She expressed understanding and agrees with the plan. Medications: New polyethylene glycol 3350 (Miralax) Mixed entire bottle polyethylene glycol with 2 bottles of Gatorade (not red colored). Drink 1 cup every 15 minutes starting at 09:00 day prior to surgery until either completed or when bowels are clear. 17 grams PO DAILY 238 grams 0RF erythromycin administer at 1 PM, 2 PM, and 11 PM the day prior to surgery 1 g (2 x 500 mg) PO TID 6 tabs 0RF neomycin administer at 1 PM, 2 PM, and 11 PM the day prior to surgery 1 g (2 x 500 mg) PO TID 6 tabs 0RF 3 doses levofloxacin 500 mg PO DAILY 7 tabs 0RF 7 days Coding Level of Care Code Est Pt Level 4 (98025) Diagnoses Diverticulosis of colon K57.30
[2024-03-26 09:14] VITALS: BP 130/96; PULSE 112; BMI 21.6
== END 2024-03-26 09:41 | disposition home or self-care (01) ==
PROVIDERS: PCP Internal Medicine; Visit Provider Surgery
DX: K57.30 Diverticulosis of large intestine without perforation or abscess without bleeding (principal)
CPT/HCPCS: 99214

== ENCOUNTER → 2024-03-26 08:59 | Outpatient (BNVA) | payer OTHER, SELFPAY ==
[2024-03-04 09:33] VITALS: BP 96/60; BP 96/66; BMI 22.5
== END ==
PROVIDERS: PCP Internal Medicine; Visit Provider Surgery
DX: K57.30 Diverticulosis of large intestine without perforation or abscess without bleeding (principal)
CPT/HCPCS: 99212

== ENCOUNTER 2024-03-27 08:38 | Outpatient (REF) | payer OTHER, SELFPAY ==
--- NOTE | ~2024-03-27 | US_ITS ---
EXAMINATION: US RETROPERITONEAL LIMITED (RENAL ONLY) CLINICAL INFORMATION: Calculus of kidney. COMPARISON: CT abdomen and pelvis 03/25/2024. Renal ultrasound 09/13/2023. Ultrasound abdomen complete 02/21/2022. X-ray abdomen 04/27/2016. TECHNIQUE: Real-time imaging of the kidneys. Limited visualization due to bowel gas. FINDINGS: RIGHT KIDNEY: 10.1 x 4.1 x 4.8 cm (SAG x AP x TRV). No hydronephrosis. No renal calculi. Renal cortical thickness is normal. Limited visualization. LEFT KIDNEY: 9.7 x 3.4 x 4.0 cm (SAG x AP x TRV). No hydronephrosis. No renal calculi. Renal cortical thickness is normal. Limited visualization. US/US renal BI IMPRESSION: No hydronephrosis. No renal calculi.
== END 2024-03-27 08:39 | disposition home or self-care (01) ==
LOC: HO.US 08:38
PROVIDERS: PCP Internal Medicine; Visit Provider Nurse Practitioner Family
DX: Z13.89 Encounter for screening for other disorder (principal)
CPT/HCPCS: 76775

== ENCOUNTER 2024-03-27 13:50 | Emergency (ER) | payer OTHER, SELFPAY ==
[2024-03-04 09:33] VITALS: BP 96/60; BP 96/66; BMI 22.5
--- NOTE | ~2024-03-27 | CT_ITS ---
EXAMINATION: CT ABDOMEN AND PELVIS WITH CONTRAST CLINICAL INFORMATION: Recently diagnosed diverticulitis, question complication COMPARISON: CT abdomen and pelvis 03/27/2024 TECHNIQUE: Multidetector volumetric images were obtained from the superior aspect of the liver through the pubic symphysis following administration 85 mL of Omnipaque 350 intravenous contrast. Sagittal and coronal reformatted images were obtained on the technologist's workstation. Oral contrast: No This CT examination was performed using dose optimization techniques as appropriate, variously including the following: *Automated exposure control *Adjustment of mA and/or kV according to patient size (this includes techniques or standardized protocols for targeted exams where dose is matched to indication/reason for exam; i.e. extremities or head) *Use of iterative reconstruction technique DLP: 280 to mGy-cm FINDINGS: LUNG BASES: Unremarkable. ABDOMINAL AND PELVIC WALL: Small fat-containing umbilical hernia. LIVER AND BILIARY TREE: Focal fat along the falciform ligament. Hypoattenuating hepatic parenchyma compatible with hepatic steatosis. GALLBLADDER: Unremarkable. PANCREAS: Unremarkable. SPLEEN: Unremarkable. ADRENAL GLANDS: Unremarkable. KIDNEYS AND URETERS: Unremarkable. GASTROINTESTINAL TRACT: Colonic diverticulosis. There is some wall thickening involving the sigmoid colon some of which appears chronic though may be questionably equivocally slightly increased from 02/19/2024 and similar to recent prior, however without margaret inflammatory fat stranding. Normal appendix. No extraluminal air to suggest perforation. No organized fluid collection to suggest abscess. VASCULAR: Atherosclerosis of the abdominal aorta. LYMPH NODES/PERITONEUM: No lymphadenopathy. FREE FLUID: None. BLADDER: Unremarkable. PELVIC VISCERA: Status post hysterectomy. OSSEOUS STRUCTURES: Unremarkable. CT/CT abdomen pelvis w IV con IMPRESSION: 1. Colonic diverticulosis with wall thickening involving the sigmoid colon some of which appears chronic though similar to recent prior may be questionably equivocally slightly increased compared to 02/19/2024, however without margaret inflammatory fat stranding, equivocal for mild diverticulitis. Recommend correlation with clinical symptoms. No perforation or abscess. 2. Hepatic steatosis.
[2024-03-27 13:55] VITALS: BP 128/86; BP 138/65; PULSE 125; PULSE 96; RESP 18; TEMP 36.9; O2SAT 96; O2SAT 97; BMI 20.1
--- NOTE | 2024-03-27 14:43 | ED_ITS ---
HPI - General Adult General Chief complaint: Abdominal Pain Stated complaint: L LOWER ABD PAIN Time Seen by Provider: 03/27/24 14:28 History of Present Illness HPI narrative: This is a 63-year-old woman with a past medical history of Lhypertension, hyperlipidemia, CAD, type 2 diabetes mellitus, bipolar disorder, rheumatoid arthritis, COPD, recently diagnosed acute diverticulitis March 25, 2024 who presents for evaluation of abdominal pain. Patient states that she has had increasingly worsening lower abdominal pain over the last few days. She states sensation of lower back pain as well. She states taking Tylenol without relief. She states her last dose was yesterday night. She states no trauma or falls. She states associated nausea without emesis. She states no bowel movement in a few days. She states abdominal surgical history of hysterectomy. She states she is still passing flatus. She states no dysuria or urinary frequency/urgency. Related Data Home Medications ?Medication ?Instructions ?Recorded ?Confirmed albuterol sulfate 90 mcg/actuation 2 inh inhalation Q4H PRN Shortness 08/23/23 03/26/24 aerosol inhaler Of Breath Or Wheezing fluticasone fur. 200 mcg-umeclid 1 ea inhalation DAILY 02/06/24 03/26/24 62.5 mcg-vilant 25 mcg inhalat.powder (Trelegy Ellipta) Previous Rx's ?Medication ?Instructions ?Recorded lancets 28 gauge (Grace #100 ea 06/07/22 Lancets) walker #1 ea 02/08/23 aspirin 81 mg tablet,delayed 81 mg PO DAILY 90 days #90 tabs 06/30/23 release levalbuterol tartrate 45 2 puff inhalation Q4-6H PRN 08/20/23 mcg/actuation aerosol inhaler shortness of breath 30 days #15 grams ipratropium bromide 0.02 % 2.5 ml inhalation Q6H PRN 10/22/23 solution for inhalation shortness of breath or wheezing #150 mL pregabalin 200 mg capsule (Lyrica) 200 mg PO BID #60 caps 11/13/23 sennosides 8.6 mg-docusate sodium 2 tab-cap (2 x 8.6-50 mg) PO 11/22/23 50 mg tablet (Senna with Docusate BEDTIME 60 days #120 tabs Sodium) blood sugar diagnostic (JoselinStyle #100 ea 11/27/23 Lite Strips) pen needle, diabetic 31 gauge x #200 ea 11/27/23 5/16 (Comfort EZ Pen Hartman) mesalamine 1.2 gram tablet,delayed 3.6 g (3 x 1.2 gram) PO DAILY 30 12/13/23 release days #90 tabs letrozole 2.5 mg tablet 2.5 mg PO DAILY #90 tabs 12/19/23 folic acid 1 mg tablet 1 mg PO DAILY #90 tabs 12/27/23 methotrexate sodium 2.5 mg tablet 15 mg (6 x 2.5 mg) PO QWEEK #72 12/27/23 tabs dulaglutide 1.5 mg/0.5 mL 1.5 mg (0.5 mL) subcut TH@0900 #6 12/30/23 subcutaneous pen injector mL (Trulicity) Shower Chair #1 ea 01/15/24 clamp on tub safety rail #1 ea 01/15/24 ez policy value calculator bed assist support #1 ea 01/15/24 linaclotide 145 mcg capsule 145 mcg PO QAM 30 days #30 caps 01/23/24 (Linzess) famotidine 20 mg tablet 20 mg PO BEDTIME 90 days #90 tabs 01/31/24 capsaicin-menthol 0.025 %-1.25 % 1 patch topical DAILY #6 ea 02/06/24 topical patch (Salonpas (capsaicin-menthol)) morphine 15 mg immediate release 15 mg PO Q6H PRN pain #14 tabs 02/19/24 tablet ondansetron 4 mg disintegrating 4 mg PO Q8H PRN nausea and 02/19/24 tablet vomiting #20 tabs dulaglutide 0.75 mg/0.5 mL 0.75 mg (0.5 mL) subcut QWEEK 30 03/19/24 subcutaneous pen injector days #2.5 mL (Trulicity) trazodone 100 mg tablet 100 mg PO BEDTIME 90 days #90 tabs 03/21/24 amoxicillin-potassium clavulanate 1 tab PO BID 10 days #20 tabs 03/25/24 1,000 mg-62.5 mg tablet,ext.rel 12hr (Augmentin XR) erythromycin 500 mg tablet 1 g (2 x 500 mg) PO TID #6 tabs 03/26/24 levofloxacin 500 mg tablet 500 mg PO DAILY 7 days #7 tabs 03/26/24 neomycin 500 mg tablet 1 g (2 x 500 mg) PO TID 3 doses #6 03/26/24 tabs polyethylene glycol 3350 17 17 g PO DAILY #238 grams 03/26/24 gram/dose oral powder (Miralax) Allergies Allergy/AdvReac Type Severity Reaction Status Date / Time shellfish derived Allergy Intermediate Hives Verified 03/27/24 14:01 methylprednisolone Allergy Rash Verified 03/27/24 14:01 etanercept [From Enbrel] AdvReac Intermediate Facial Verified 03/27/24 14:01 Swelling ibuprofen [Ibuprofen] AdvReac Intermediate STOMACH Verified 03/27/24 14:01 UPSET, abdominal pain, nausea and vomiting metformin AdvReac Intermediate Diarrhea Verified 03/27/24 14:01 metronidazole [From FLAGYL] AdvReac Intermediate Diarrhea Verified 03/27/24 14:01 prednisone AdvReac Intermediate hallucinations, Verified 03/27/24 14:01 higher than 20 Review of Systems 2 Review of Systems: ROS as per HPI [facility] Past Medical History Medical History Breast cancer Stable angina HTN (hypertension) FPC (current) use 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 T2DM (type 2 diabetes mellitus) Acute respiratory distress Hospital discharge follow-up Tendonitis of ankle or foot Colitis Cough Anxiety CAD (coronary artery disease) HLD (hyperlipidemia) T2DM (type 2 diabetes mellitus) COPD exacerbation Hyperkalemia Atherosclerotic cardiovascular disease GERD (gastroesophageal reflux disease) CVA (cerebral vascular accident) Breast pain, right Rash Bloody diarrhea PAD (peripheral artery disease) Hyperlipidemia LDL goal <100 COPD (chronic obstructive pulmonary disease) Infiltrating ductal carcinoma of left breast, stage 2 Insomnia Dyslipidemia Bipolar 1 disorder, depressed Cough Restrictive airway disease Hypothyroid IDDM (insulin dependent diabetes mellitus) Vitamin D deficiency Osteoporosis Hyperparathyroidism Thyroid nodule Depression Fibromyalgia Seropositive rheumatoid arthritis Reactive airways dysfunction syndrome Allergic rhinitis Irritable bowel Anxiety Bronchial asthma Diabetes type 2, uncontrolled Hypertension Surgical History Hx of sigmoidoscopy History of bronchoscopy Hx of endoscopy H/O cardiac catheterization History of lumpectomy of left breast History of pubovaginal sling History of esophagogastroduodenoscopy (EGD) History of tubal ligation History of colonoscopy History of bunionectomy of both great toes H/O: hysterectomy Family History Family History Mother Diabetes HTN (hypertension) Uterus cancer Malignant tumor of head Breast cancer Father Diabetes HTN (hypertension) CVD (cardiovascular disease) Heart problem Maternal Aunt Breast cancer Brother Myocardial infarction S/P CABG x 4 Family/Other FH: mental illness Family/Other Lung cancer Other Mental health disorder Social History Social History Household Members: Family Household Members Other:: sister Housing: House Are you a primary gericare aide to a significant other at home: No Do you presently have visiting nurse or other home services: Yes (sister is [employer]) Unable to assess alcohol history related to: Unknown Alcohol intake: never Patient Tobacco Use Status: Current everyday Tobacco user Tobacco use type: Cigarette Cigarette Packs Per Day: 0.5 Cigarettes Per Day: 2 Years Smoked: 48 e-Cigarette/Vaping Use: Never Used Second Hand Smoke Exposure: No Substance Use Type: Marijuana Advance Directives Date on File: 12/22/21 service: No Current occupational status: disabled Current occupation: rt handed Cognitive needs: No Hearing needs: No Vision needs: Yes Physical Exam ED Vital Signs: Vital Signs - 24 hr 03/27/24 13:55 03/27/24 15:31 03/27/24 17:36 Temperature 98.4 F 98.2 F 98.2 F Pulse Rate 96 83 75 Respiratory Rate 18 12 12 Blood Pressure 138/65 141/84 H 151/88 H Pulse Oximetry 96 97 96 Oxygen Delivery Method Room Air Room Air Room Air BMI result Body Mass Index 20.1 Gen: AOx3 HEENT: NCAT, EOMI CV: RRR Pulm: CTAB, no increased work of breathing GI: Soft, bilateral lower quadrant TTP, no rebound or guarding, no peritoneal rigidity MSK: no b/l CVAT Neuro: Grossly non focal Medications Administered Discontinued Medications Generic Name Dose Route Start Last Admin Trade Name Freq PRN Reason Stop Dose Admin Acetaminophen 975 mg 03/27/24 17:15 03/27/24 17:42 Acetaminophen 325 Mg Tablet PO 03/27/24 17:16 975 mg ONCE ONE Administration Lactated Ringer's 1,000 mls @ 999 mls/hr 03/27/24 15:00 03/27/24 17:06 Lr IV 03/27/24 16:00 Infused .Q1H1M ONE Infusion Iohexol 85 ml 03/27/24 15:24 03/27/24 15:25 Iohexol 350 Mg/Ml 100 Ml Infus..Btl IV 03/27/24 15:25 85 ml ONCE ONE Administration Ketorolac Tromethamine 15 mg 03/27/24 17:15 03/27/24 17:42 Ketorolac Tromethamine 15 Mg/Ml Vial IVPUSH 03/27/24 17:16 15 mg ONCE ONE Administration Morphine Sulfate 4 mg 03/27/24 15:00 03/27/24 15:10 Morphine Sulfate 4 Mg/Ml Cartridge IVPUSH 03/27/24 15:01 4 mg ONCE ONE Administration Protocol Medical Decision Making Medical Decision Making [facility] Narrative: Differential diagnosis includes, but is not limited to diverticulitis, perforation, intra-abdominal abscess, strain. Patient is afebrile and hemodynamically stable on room air. Exam is overall benign and reassuring. I reviewed and interpreted labs, which are noncontributory. Diagnostic imaging studies unremarkable equivocal findings of diverticulitis without complication such as with perforation or abscess. Patient is provided IV fluids and morphine. On initial reexamination, patient endorses ongoing right-sided pain. She is provided Tylenol and Toradol for additional analgesia. On re-examination, patient is well-appearing and in no acute distress. ?Patient states her pain has resolved and she reports wanting to go home because she is hungry..?There is no indication for further emergent evaluation in this otherwise well-appearing patient as above. ?Patient is provided written and verbal instructions, educational materials, recommendations for outpatient follow-up, strict return precautions and teach back is performed. ?Patient states understanding and agreement with plan of care. ?Patient is discharged home in stable and improved condition. Admission/Observation Consideration of admission/observation: Escalation of care including admission/observation considered Lab Data [facility] Lab Attestation statement: I reviewed the patient's lab results. 03/27/24 14:50 03/27/24 14:50 Labs: Lab Results 03/27/24 03/27/24 Range/Units 14:50 15:14 WBC 8.1 (4.8-10.8) X10*3/uL RBC 4.65 (4.20-5.50) X10*6/uL Hgb 13.7 (12.0-16.0) g/dl Hct 39.7 (37.0-47.0) % MCV 85.4 (80.0-98.0) fL MCH 29.5 (27.0-33.0) pg MCHC 34.5 (31.0-35.0) g/dl RDW 17.2 H (11.0-16.0) % Plt Count 339 (160-400) X10*3/uL MPV 10.3 (9.4-12.3) fL Immature Gran % (Auto) 0.4 (0.0-0.4) % Neut % (Auto) 66.2 (45-73) % Lymph % (Auto) 25.8 (20-40) % [facility] % (Auto) 6.8 (2-11) % Eos % (Auto) 0.4 (0-4) % Baso % (Auto) 0.4 (0-2) % Lymph # (Auto) 2.1 (1.2-4.9) X10*3/uL [facility] # (Auto) 0.6 (0.1-1.2) X10*3/uL Eos # (Auto) 0.0 (0.0-0.4) X10*3/uL Baso # (Auto) 0.0 (0.0-0.2) X10*3/uL Abs Immat Gran (auto) 0.03 (0.00-0.03) X10*3/uL Absolute Neuts (auto) 5.3 (2.0-8.3) x10*3/uL Absolute Nucleated RBC 0.000 (0.0-0.012) X10*3/uL Nucleated RBC % (auto) 0.0 (0.0-0.2) /100WBC Sodium 141 (135-145) mmol/L Potassium 4.1 (3.3-5.1) mmol/L Chloride 107 (96-108) mmol/L Carbon Dioxide 22 (22-29) mmol/L Anion Gap 16 (12-20) BUN 10 (9-16) mg/dL Creatinine 0.82 (0.5-1.4) mg/dL Estim Creat Clear Calc 43.9 Estimated GFR > 60 Random Glucose 93 (60-115) mg/dL Calcium 10.0 (8.4-10.2) mg/dL Total Bilirubin 0.4 (0.0-1.0) mg/dL Direct Bilirubin 0.1 (0.0-0.5) mg/dL AST 21 (5-31) U/L ALT 14 (0-31) U/L Alkaline Phosphatase 51 (39-117) U/L Total Protein 7.8 (6.5-8.0) g/dL Albumin 4.4 (3.5-5.0) g/dL Lipase 25 (8-78) U/L Urine Color Yellow Urine Appearance Clear Urine pH 7.5 (5.0-9.0) Ur Specific [place] 1.010 (1.005-1.025) Urine Protein Negative (Neg-Trace) mg/dL Urine Glucose (UA) Negative (Negative) mg/dL Urine Ketones 15 (Negative) mg/dL Urine Blood Negative (Negative) Urine Nitrite Negative (Negative) Ur Leukocyte Esterase Moderate (2+) H (Negative) Urine RBC 0-2 (0-2) /HPF Urine WBC 0-5 (0-5) /HPF Ur Squamous Epith Cells 0-2 (0-2) /HPF Urine Bacteria None Seen (None Seen) Hyaline Casts 0-2 (0-2) /LPF Urine Yeast Present Urine Opiates Screen POSITIVE H (Not Detect) Ur Buprenorphine Scrn Not Detected (Not Detect) ng/mL Ur Oxycodone Screen Positive H (Not Detect) ng/mL Urine Methadone Screen Not Detected (Not Detect) ng/mL Urine Fentanyl Screen POSITIVE H (Not Detect) Ur Barbiturates Screen Not Detected (Not Detect) Ur Phencyclidine Scrn Not Detected (Not Detect) Ur Amphetamines Screen Not Detected (Not Detect) U Benzodiazepines Scrn Not Detected (Not Detect) Urine Cocaine Screen Not Detected (Not Detect) U Marijuana (THC) Screen POSITIVE H (Not Detect) Radiology Impression Discussion of test interpretation with radiology: I have reviewed the radiologist's reading. Radiologist Impression: CT/CT abdomen pelvis w IV con IMPRESSION: 1. Colonic diverticulosis with wall thickening involving the sigmoid colon some of which appears chronic though similar to recent prior may be questionably equivocally slightly increased compared to 02/19/2024, however without margaret inflammatory fat stranding, equivocal for mild diverticulitis. Recommend correlation with clinical symptoms. No perforation or abscess. 2. Hepatic steatosis. Dictated By: Amy Lainez MD Signed By: <Electronically signed by Amy Lainez MD in OV> 03/27/24 [id number] Discharge Plan Discharge Clinical Impression: Diverticulitis Patient Disposition: Home, Self-Care Instructions: Diverticulitis Diet (ED), Diverticulitis (ED) Additional Instructions: You were evaluated in the emergency for abdominal pain. Your labs and CAT scan studies were reassuring. You were given IV fluids and pain medicines. Please follow up with your primary care doctor in 5-7 days. Please continue taking your medicines as previously prescribed. Please return to the emergency room with any new or concerning symptoms including, but not limited to worsening abdominal pain, intractable nausea/vomiting, inability to eat/drink, bloody vomit or bloody stools. Prescriptions: No Action (DME) lancets [FreeStyle Lancets] 28 gauge misc See Rx Instructions .Route Qty: 100 3RF Rx Instructions: Use 1 lancet once a day (DME) walker [facility] [place] See Rx Instructions .Route Qty: 1 0RF Rx Instructions: with seat aspirin 81 mg tablet,delayed release (DR/EC) 81 mg PO DAILY 90 Days Qty: 90 1RF Hold Instructions: resume 12/14 levalbuterol tartrate 45 mcg/actuation HFA aerosol inhaler 2 puff inhalation Q4-6H PRN (Reason: shortness of breath) 30 Days Qty: 15 3RF ipratropium bromide 0.02 % solution 2.5 ml inhalation Q6H PRN (Reason: shortness of breath or wheezing) Qty: 150 3RF pregabalin [Lyrica] 200 mg capsule 200 mg PO BID Qty: 60 1RF Trulicity 1.5 mg/0.5 mL pen injector 1.5 mg subcut TH@0900 Qty: 6 3RF (DME) Shower Chair Misc See Rx Instructions .Route Qty: 1 0RF Rx Instructions: As directed (DME) clamp on tub safety rail See Rx Instructions .Route .MEDSUPPLY Qty: 1 0RF Rx Instructions: As directed (DME) ez policy value calculator bed assist support See Rx Instructions .Route .MEDSUPPLY Qty: 1 0RF Rx Instructions: As directed famotidine 20 mg tablet 20 mg PO BEDTIME 90 Days Qty: 90 1RF Trulicity 0.75 mg/0.5 mL pen injector 0.75 mg subcut QWEEK 30 Days Qty: 2.5 0RF trazodone 100 mg tablet 100 mg PO BEDTIME 90 Days Qty: 90 0RF letrozole 2.5 mg Tablet 2.5 mg PO DAILY Qty: 90 3RF morphine 15 mg tablet 15 mg PO Q6H PRN (Reason: pain) Qty: 14 0RF Rx Instructions: partial fill okay; Partial Fill upon patient request. ondansetron 4 mg tablet,disintegrating 4 mg PO Q8H PRN (Reason: nausea and vomiting) Qty: 20 0RF mesalamine 1.2 gram Tablet,Delayed Release (Dr/Ec) 3.6 g PO DAILY 30 Days Qty: 90 0RF amoxicillin-pot clavulanate [Augmentin XR] 1,000-62.5 mg tablet extended release 12 hr 1 tab PO BID 10 Days Qty: 20 0RF (DME) pen needle, diabetic [Comfort EZ Pen Hartman] 31 gauge x 5/16 needle See Rx Instructions .ROUTE .MEDSUPPLY Qty: 200 11RF Rx Instructions: Use 1 pen needle 6 times a day (DME) FreeStyle Lite Strips Strip MISCELLANEOUS DAILY Qty: 100 1RF Rx Instructions: Use 1 test strip three times a day albuterol sulfate 90 mcg/actuation HFA aerosol inhaler 2 inh inhalation Q4H PRN (Reason: Shortness Of Breath Or Wheezing) sennosides-docusate sodium [Senna with Docusate Sodium] 8.6-50 mg tablet 2 tab-cap PO BEDTIME 60 Days Qty: 120 2RF Rx Instructions: Please take every other day at bedtime Linzess 145 mcg capsule 145 mcg PO QAM 30 Days Qty: 30 3RF methotrexate sodium 2.5 mg tablet 15 mg PO QWEEK Qty: 72 1RF folic acid 1 mg tablet 1 mg PO DAILY Qty: 90 1RF Trelegy Ellipta 200-62.5-25 mcg blister with device 1 ea inhalation DAILY Salonpas (capsaicin-menthol) 0.025-1.25 % adhesive patch,medicated 1 patch topical DAILY Qty: 6 4RF Rx Instructions: may leave on area for up to 8 hrs erythromycin 500 mg tablet 1 g PO TID Qty: 6 0RF Rx Instructions: administer at 1 PM, 2 PM, and 11 PM the day prior to surgery polyethylene glycol 3350 [Miralax] 17 gram/dose powder 17 g PO DAILY Qty: 238 0RF Rx Instructions: Mixed entire bottle polyethylene glycol with 2 bottles of Gatorade (not red colored). Drink 1 cup every 15 minutes starting at 09:00 day prior to surgery until either completed or when bowels are clear. neomycin 500 mg tablet 1 g PO TID Qty: 6 0RF Rx Instructions: administer at 1 PM, 2 PM, and 11 PM the day prior to surgery levofloxacin 500 mg tablet 500 mg PO DAILY 7 Days Qty: 7 0RF Print Language: Bulgarian
[2024-03-27 14:55] LABS: MANUAL DIFF FLAG NO
[2024-03-27 14:57] LABS: Basophils Percent Auto 0.4 % (0-2); Eosinophils Percent Auto 0.4 % (0-4); Hematocrit 39.7 % (37.0-47.0); Hemoglobin 13.7 g/dl (12.0-16.0); Imm Gran Abs Auto 0.03 X10*3/uL (0.00-0.03); Imm Gran Pct Auto 0.4 % (0.0-0.4); Lymphocytes Absolute Auto 2.1 X10*3/uL (1.2-4.9); Lymphocytes Percent Auto 25.8 % (20-40); Mean Corpuscular HGB Conc 34.5 g/dl (31.0-35.0); Mean Corpuscular Hemoglobin 29.5 pg (27.0-33.0); Mean Corpuscular Volume 85.4 fL (80.0-98.0); Mean Platelet Volume 10.3 fL (9.4-12.3); Monocytes Absolute Auto 0.6 X10*3/uL (0.1-1.2); Monocytes Percent Auto 6.8 % (2-11); Neutrophils Absolute Auto 5.3 x10*3/uL (2.0-8.3); Neutrophils Percent Auto 66.2 % (45-73); Platelet Count 339 X10*3/uL (160-400); Red Blood Count 4.65 X10*6/uL (4.20-5.50); Red Cell Distribution Width 17.2 % (11.0-16.0); White Blood Count 8.1 X10*3/uL (4.8-10.8)
[2024-03-27] MEDS: Morphine Sulfate 4 MG/ML CARTRIDGE IVPUSH (15:10)
[2024-03-27] MEDS: Lactated Ringers 1,000 ML 999 ML IV (15:10)
[2024-03-27 15:13] LABS: Alanine Aminotransferase 14 U/L (0-31); Albumin Level 4.4 g/dL (3.5-5.0); Alkaline Phosphatase 51 U/L (39-117); Anion Gap 16 (12-20); Aspartate Amino Transferase 21 U/L (5-31); Bilirubin Direct 0.1 mg/dL (0.0-0.5); Bilirubin Total 0.4 mg/dL (0.0-1.0); Blood Urea Nitrogen 10 mg/dL (9-16); Carbon Dioxide 22 mmol/L (22-29); Chloride 107 mmol/L (96-108); Creatinine Clr Calc Pharmacy 43.9; Estimated Glomerular Filt Rate > 60; Glucose Random 93 mg/dL (60-115); Lipase 25 U/L (8-78); Potassium 4.1 mmol/L (3.3-5.1); Sodium 141 mmol/L (135-145); Total Protein 7.8 g/dL (6.5-8.0)
[2024-03-27] MEDS: iohexoL 350 MG/ML 100 ML INFUS..BTL 85 ML IV (15:25)
[2024-03-27 15:28] LABS: Appearance Urine Clear; Color Urine Yellow; Glucose Urine UA Negative (Negative); Leukocyte Esterase Urine Moderate (2+) (Negative); Nitrite Urine Negative (Negative); PH 7.5 (5.0-9.0); UMIC TRIGGER UACC YES; Urine Blood Negative (Negative); Urine Ketones 15 mg/dL (Negative); Urine Protein Negative (Neg-Trace)
[2024-03-27 15:31] VITALS: BP 141/84; PULSE 83; RESP 12; TEMP 36.8; O2SAT 97
--- NOTE | 2024-03-27 15:32 | MHC.EDTECH ---
This Tech over for this patient at 15:00, Patient is resting is comfortably. Introduced myself to the patient and obtained vitals.
[2024-03-27 15:37] LABS: Amphetamine Screen Urine Not Detected (Not Detect); Barbiturates, Urine Not Detected (Not Detect); Benzodiazepines Screen Urine Not Detected (Not Detect); Buprenorphine Scr Not Detected (Not Detect); Cannabinoid Screen Urine POSITIVE (Not Detect); Cocaine Screen Urine Not Detected (Not Detect); Fentanyl, urine POSITIVE (Not Detect); Methadone Screen, Urine Not Detected (Not Detect); Opiate Screen Urine POSITIVE (Not Detect); Oxycodone Screen Urine Positive (Not Detect); Phencyclidine Screen Urine Not Detected (Not Detect)
[2024-03-27 15:49] LABS: Bacteria Urine None Seen (None Seen); Hyaline Casts Urine 0-2 /LPF (0-2); RBC Urine 0-2 /HPF (0-2); Squamous Epithelial Cell Urine 0-2 /HPF (0-2); WBC Urine 0-5 /HPF (0-5)
[2024-03-27 17:36] VITALS: BP 151/88; PULSE 75; RESP 12; TEMP 36.8; O2SAT 96
[2024-03-27] MEDS: Acetaminophen 325 MG TABLET 975 MG PO (17:42)
[2024-03-27] MEDS: Ketorolac Tromethamine 15 MG/ML VIAL IVPUSH (17:42)
[2024-03-27 19:05] VITALS: BP 104/66; PULSE 80; RESP 18; TEMP 36.7; O2SAT 98
== END 2024-03-27 19:06 | disposition home or self-care (01) ==
PROVIDERS: Emergency Provider Emergency Medicine; PCP Internal Medicine
DX: K57.32 Diverticulitis of large intestine without perforation or abscess without bleeding (principal); R10.32 Left lower quadrant pain; R11.2 Nausea with vomiting, unspecified; I25.10 Atherosclerotic heart disease of native coronary artery without angina pectoris; M25.50 Pain in unspecified joint; M54.50 Low back pain, unspecified; Z79.899 Other long term (current) drug therapy; Z51.81 Encounter for therapeutic drug level monitoring
CPT/HCPCS: 36415; 74177; 76775; 80048; 80076; 80307; 81001; 83690; 85025; 96361; 96374; 96375; 99285; J1885; J2270; J7120; Q9967

== ENCOUNTER 2024-03-31 12:45 | Outpatient (AMB) | payer OTHER, SELFPAY ==
[2024-03-04 09:33] VITALS: BP 96/60; BP 96/66; BMI 22.5
[2024-03-31 12:55] VITALS: BP 120/72; BMI 22.1
--- NOTE | 2024-03-31 12:55 | MHC.PC.OV ---
Vital Signs 03/31/24 12:55 Height 4 ft 9 in Weight 102 lb BMI 22.1 BP 120/72 Blood Pressure Location Lt brachial Position Sitting Intake Visit Reasons: pain in abdomen/discharge Intake Note: Patient here for right side leg pain, abdominal pain Audograph Operator Required: No Accompanied by: Self / Same As Patient Allergies shellfish derived Allergy (Intermediate, Verified 03/31/24 13:11) Hives methylprednisolone Allergy (Verified 03/31/24 13:11) Rash etanercept [From Enbrel] Adverse Reaction (Intermediate, Verified 03/31/24 13:11) Facial Swelling ibuprofen [Ibuprofen] Adverse Reaction (Intermediate, Verified 03/31/24 13:11) STOMACH UPSET, abdominal pain, nausea and vomiting metformin Adverse Reaction (Intermediate, Verified 03/31/24 13:11) Diarrhea metronidazole [From FLAGYL] Adverse Reaction (Intermediate, Verified 03/31/24 13:11) Diarrhea prednisone Adverse Reaction (Intermediate, Verified 03/31/24 13:11) hallucinations, higher than 20 Medication List - Last Reconciled 03/31/24 by Adela Wasserman MD albuterol sulfate 90 mcg/actuation 2 inhalations inhalation Q4H PRN aspirin 81 mg PO DAILY 90 days blood sugar diagnostic (FreeStyle Lite Strips) Use 1 test strip three times a day capsaicin-menthol 0.025-1.25 % (Salonpas (capsaicin-menthol)) 1 patch topical DAILY [clamp on tub safety rail As directed] dulaglutide (Trulicity) 1.5 mg (0.5 mL) subcut TH@0900 dulaglutide (Trulicity) 0.75 mg (0.5 mL) subcut QWEEK 30 days erythromycin 1 g (2 x 500 mg) PO TID [ez advance seal delivery system maintainer bed assist support As directed] famotidine 20 mg PO BEDTIME 90 days [id number]-hmycgsvib-eskdktxv 200-62.5-25 mcg (Trelegy Ellipta) 1 ea inhalation DAILY folic acid 1 mg PO DAILY ipratropium bromide 2.5 mL inhalation Q6H PRN lancets (FreeStyle Lancets) Use 1 lancet once a day letrozole 2.5 mg PO DAILY levalbuterol tartrate 45 mcg/actuation 2 puffs inhalation Q4-6H PRN 30 days levofloxacin 500 mg PO DAILY 7 days linaclotide (Linzess) 145 mcg PO QAM 30 days mesalamine 3.6 grams (3 x 1.2 gram) PO DAILY 30 days methotrexate sodium 15 mg (6 x 2.5 mg) PO QWEEK morphine 15 mg PO Q6H PRN neomycin 1 g (2 x 500 mg) PO TID 3 doses ondansetron 4 mg PO Q8H PRN pen needle, diabetic (Comfort EZ [employer] [place]) Use 1 pen needle 6 times a day polyethylene glycol 3350 (Miralax) 17 grams PO DAILY pregabalin (Lyrica) 200 mg PO BID sennosides-docusate sodium 8.6-50 mg (Senna with Docusate Sodium) 2 tab-caps (2 x 8.6-50 mg) PO BEDTIME 60 days Shower Chair As directed trazodone 100 mg PO BEDTIME 90 days walker with seat Tobacco use date assessed: 11/27/23 Dental Screening Dental Screen Date: 01/29/24 HPI HPI Comments History of Present Illness Details This is a 63-year-old female with COPD, bipolar disorder, diabetes mellitus type 2, hypertension and history of left breast cancer that comes today complaining of low back pain radiating to the right leg requiring a cane for gait stability that started few days ago. She has had this pain for few years but this past few days has been more prominent. She declines physical therapy. I will order x-ray. No fever, bowel or bladder incontinence. She went to the hospital 03/27/2024 due to acute diverticulitis for the 2nd time. Was evaluated by surgery the day before and will have surgery this month regarding that matter. Still have some abdominal pain. Completed Levaquin. COPD has been stable with Trelegy and is follow by pulmonology. Bipolar disorder has been in remission and she does not see psychiatry for it. A1c within goal. Blood pressure stable. On letrozole for her history of left breast cancer which is follow by Hematology-Oncology. 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 T2DM (type 2 diabetes mellitus) Acute respiratory distress Hospital discharge follow-up Tendonitis of ankle or foot Colitis Cough Anxiety CAD (coronary artery disease) HLD (hyperlipidemia) T2DM (type 2 diabetes mellitus) COPD exacerbation Hyperkalemia Atherosclerotic cardiovascular disease GERD (gastroesophageal reflux disease) CVA (cerebral vascular accident) Breast pain, right Rash Bloody diarrhea PAD (peripheral artery disease) Hyperlipidemia LDL goal <100 COPD (chronic obstructive pulmonary disease) Infiltrating ductal carcinoma of left breast, stage 2 Insomnia Dyslipidemia Bipolar 1 disorder, depressed Cough Restrictive airway disease Hypothyroid IDDM (insulin dependent diabetes mellitus) Vitamin D deficiency Osteoporosis Hyperparathyroidism Thyroid nodule Depression Fibromyalgia Seropositive rheumatoid arthritis Reactive airways dysfunction syndrome Allergic rhinitis Irritable bowel Anxiety Bronchial asthma Diabetes type 2, uncontrolled Hypertension Surgical History Hx of sigmoidoscopy History of bronchoscopy Hx of endoscopy H/O cardiac catheterization History of lumpectomy of left breast History of pubovaginal sling History of esophagogastroduodenoscopy (EGD) History of tubal ligation History of colonoscopy History of bunionectomy of both great toes H/O: hysterectomy Family History Mother Diabetes HTN (hypertension) Uterus cancer Malignant tumor of head Breast cancer Father Diabetes HTN (hypertension) CVD (cardiovascular disease) Heart problem Maternal Aunt Breast cancer Brother Myocardial infarction S/P CABG x 4 Family/Other FH: mental illness Family/Other Lung cancer Other Mental health disorder Social History Household Members: Family Household Members Other:: sister Housing: House Are you a primary career based intervention coordinator to a significant other at home: No Do you presently have visiting nurse or other home services: Yes (sister is TRIMMER AND BORER MACHINE OPERATOR) Unable to assess alcohol history related to: Unknown Alcohol intake: never Patient Tobacco Use Status: Current everyday Tobacco user Tobacco use type: Cigarette Cigarette Packs Per Day: 0.5 Cigarettes Per Day: 2 Years Smoked: 48 e-Cigarette/Vaping Use: Never Used Second Hand Smoke Exposure: No Substance Use Type: Marijuana Advance Directives Date on File: 12/22/21 service: No Current occupational status: disabled Current occupation: rt handed Cognitive needs: No Hearing needs: No Vision needs: Yes Questionnaire Thrive Questionnaire Date Thrive assessed: 12/12/23 FLAVIA-7 AMB Questionnaire FLAVIA-7 Date FLAVIA - 7 assessed: 01/10/24 Source: Developed by Drs. Hernandez Norris, Gissell Solorzano, Gilmar Szymanski and colleagues, with an educational chris from [employer]. Review of Systems Const All systems reviewed & are unremarkable except as noted in HPI and below Card Denies chest pain at rest, Denies chest pain with activity, Denies edema, Denies irregular heart rhythm, Denies claudication, Denies dyspnea, Denies dyspnea on exertion, Denies orthopnea, Denies paroxysmal nocturnal dyspnea and Denies slow heart rate Resp Denies cough, Denies dyspnea and Denies dyspnea on exertion GI Denies abdominal pain, Denies change in bowel habits, Denies excessive flatus, Denies nausea and Denies vomiting Denies urinary incontinence, Denies urinary hesitancy and Denies urinary urgency Physical exam (Primary Care) Vital Signs: Last Vital Signs BP 120/72 03/31/24 12:55 BMI result Body Mass Index 22.1 Tobacco/Smoking Status: Tobacco use Status Tobacco use date assessed 11/27/23 03/31/24 12:59 Patient Tobacco Use Status Current everyday Tobacco 03/31/24 12:59 Tobacco use type Cigarette 03/31/24 12:59 e-Cigarette/Vaping Use Never Used 03/31/24 12:59 Thrive Assessment: Date of Thrive Assessment Date Thrive assessed 12/12/23 03/31/24 12:59 Const Limitations: ambulation with cane Resp Effort & Inspection: normal respiratory effort Auscultation: clear to auscultation bilaterally Cardio Jugular venous distension: no JVD Rate: regular rate Rhythm: regular rhythm Heart sounds: S1 normal heart sound present and S2 normal heart sound present GI Inspection: Yes normal to inspection Palpation (GI): Soft to palpation and nontender Auscultation: normal bowel sounds Back/Spine/Pelvis Thoracic/Lumbar Spine: straight leg raise positive right at 40 degrees Extrem General: Yes full ROM Psych Appearance: grossly normal Assessment and Plan Assessment & Plan (1) COPD (chronic obstructive pulmonary disease): Code(s): J44.9 - Chronic obstructive pulmonary disease, unspecified Qualifiers: COPD type: unspecified COPD Qualified Code(s): J44.9 - Chronic obstructive pulmonary disease, unspecified Plan: Continue Trelegy. Follow-up with pulmonology. (2) Diabetes mellitus: Code(s): E11.9 - Type 2 diabetes mellitus without complications Qualifiers: Diabetes mellitus type: type 2 Diabetes mellitus retirement insulin use: without retirement use Diabetes mellitus complication status: without complication Qualified Code(s): E11.9 - Type 2 diabetes mellitus without complications Plan: Continue Trulicity. A1c goal is equal or less than 7%. (3) Bipolar 1 disorder, depressed: Code(s): F31.9 - Bipolar disorder, unspecified Plan: In remission. (4) Right sided sciatica: Code(s): M54.31 - Sciatica, right side Plan: X-ray ordered. (5) Infiltrating ductal carcinoma of left breast, stage 2: Code(s): C50.912 - Malignant neoplasm of unspecified site of left female breast Plan: Continue letrozole. Follow-up with Hematology-Oncology. 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
== END 2024-03-31 13:18 | disposition home or self-care (01) ==
PROVIDERS: PCP Internal Medicine; Visit Provider Internal Medicine
DX: J44.9 Chronic obstructive pulmonary disease, unspecified (principal); E11.9 Type 2 diabetes mellitus without complications; F31.9 Bipolar disorder, unspecified; C50.912 Malignant neoplasm of unspecified site of left female breast; M54.31 Sciatica, right side
CPT/HCPCS: 99214

== ENCOUNTER 2024-03-31 13:32 | Outpatient (REF) | payer OTHER, SELFPAY ==
[2024-03-04 09:33] VITALS: BP 96/60; BP 96/66; BMI 22.5
--- NOTE | ~2024-03-31 | XR_ITS ---
EXAMINATION: XR LUMBOSACRAL SPINE CLINICAL INFORMATION: Sciatica, right side COMPARISON: None available. TECHNIQUE: Three views of the lumbosacral spine. FINDINGS: The bones are diffusely demineralized. There 5 nonrib-bearing lumbar-type vertebral bodies. There are large transverse processes on the L5 vertebral body. The height of vertebral bodies is well-maintained. There is straightening of the usual lumbar lordosis which can be seen with muscle spasm. There is disc space narrowing at L5-S1 consistent with there is degenerative facet joint disease L5-S1. Degenerative disc disease. XR/XR lumbar spine 2-3V IMPRESSION: 1. Muscle spasm. 2. Degenerative disc disease and degenerative facet joint disease at L5-S1.
== END 2024-03-31 13:33 | disposition home or self-care (01) ==
LOC: HO.XRAY 13:32
PROVIDERS: PCP Internal Medicine; Visit Provider Internal Medicine
DX: M62.830 Muscle spasm of back (principal); M51.17 Intervertebral disc disorders with radiculopathy, lumbosacral region
CPT/HCPCS: 72100

== ENCOUNTER 2024-04-07 09:08 | Outpatient (AMB) | payer OTHER, SELFPAY ==
[2024-03-04 09:33] VITALS: BP 96/60; BP 96/66; BMI 22.5
--- NOTE | 2024-04-07 09:30 | MHC.OFFVIS ---
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 Accompanied by: Self / Same As Patient Allergies shellfish derived Allergy (Intermediate, Verified 04/07/24 09:57) Hives methylprednisolone Allergy (Verified 04/07/24 09:57) Rash etanercept [From Enbrel] Adverse Reaction (Intermediate, Verified 04/07/24 09:57) Facial Swelling ibuprofen [Ibuprofen] Adverse Reaction (Intermediate, Verified 04/07/24 09:57) STOMACH UPSET, abdominal pain, nausea and vomiting metformin Adverse Reaction (Intermediate, Verified 04/07/24 09:57) Diarrhea metronidazole [From FLAGYL] Adverse Reaction (Intermediate, Verified 04/07/24 09:57) Diarrhea prednisone Adverse Reaction (Intermediate, Verified 04/07/24 09:57) hallucinations, higher than 20 Medication List - Last Reconciled 04/07/24 by ARTEMIO Pagan-NICHO albuterol sulfate 90 mcg/actuation 2 inhalations inhalation Q4H PRN aspirin 81 mg PO DAILY 90 days blood sugar diagnostic (FreeStyle Lite Strips) Use 1 test strip three times a day capsaicin-menthol 0.025-1.25 % (Salonpas (capsaicin-menthol)) 1 patch topical DAILY [clamp on tub safety rail As directed] dulaglutide (Trulicity) 1.5 mg (0.5 mL) subcut TH@0900 dulaglutide (Trulicity) 0.75 mg (0.5 mL) subcut QWEEK 30 days erythromycin 1 g (2 x 500 mg) PO TID [ez manager cancer bed assist support As directed] famotidine 20 mg PO BEDTIME 90 days vdjgskpbffz-odfmomzew-eogbgsgk 200-62.5-25 mcg (Trelegy Ellipta) 1 ea inhalation DAILY folic acid 1 mg PO DAILY ipratropium bromide 2.5 mL inhalation Q6H PRN lancets (FreeStyle Lancets) Use 1 lancet once a day letrozole 2.5 mg PO DAILY levalbuterol tartrate 45 mcg/actuation 2 puffs inhalation Q4-6H PRN 30 days linaclotide (Linzess) 145 mcg PO QAM 30 days mesalamine 3.6 grams (3 x 1.2 gram) PO DAILY 30 days methotrexate sodium 15 mg (6 x 2.5 mg) PO QWEEK morphine 15 mg PO Q6H PRN neomycin 1 g (2 x 500 mg) PO TID 3 doses nitrofurantoin macrocrystal 100 mg PO BID 10 days ondansetron 4 mg PO Q8H PRN pen needle, diabetic (Comfort EZ Pen [place]) Use 1 pen needle 6 times a day polyethylene glycol 3350 (Miralax) 17 grams PO DAILY pregabalin (Lyrica) 200 mg PO BID sennosides-docusate sodium 8.6-50 mg (Senna with Docusate Sodium) 2 tab-caps (2 x 8.6-50 mg) PO BEDTIME 60 days Shower Chair As directed trazodone 100 mg PO BEDTIME 90 days walker with seat HPI Comments Details: Sosa is a very pleasant 63-year-old English-speaking female patient of Dr. Jose Wasserman. She has a past medical history of colitis, anxiety, coronary artery disease, hyperlipidemia, hypertension, type 2 diabetes, ACD, COPD, GERD, CVA, bipolar disorder, dyslipidemia, insomnia, hypothyroidism, vitamin-D deficiency, osteoporosis, depression, CAD fibromyalgia, and irritable bowel syndrome. She presents to the office today for follow-up of her nephrolithiasis. Recent renal imaging results reviewed with the patient today. Bilateral kidneys with no hydronephrosis or renal calculi. Patient reports noting ongoing lower urinary bladder pressure. She reports having followed up with her PCP at which time a CT of the abdomen and pelvis was ordered and has been following up with her PCP regarding these results. In office urinalysis results reviewed with the patient today. 3+ leukocytes negative nitrates. Discussed potential for urinary tract infection. She otherwise denies urinary urgency, urinary frequency, incontinence, nocturia, hematuria, dysuria, foul smelling urine, changes to urinary stream, flank pain, fever, and or chills. She is happy with her current voiding parameters. She discusses her upcoming surgical appointment with GI. She otherwise offers no issues or concerns. [facility] Medical History Breast cancer Stable angina HTN (hypertension) half-way (current) use 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 T2DM (type 2 diabetes mellitus) Acute respiratory distress Hospital discharge follow-up Tendonitis of ankle or foot Colitis Cough Anxiety CAD (coronary artery disease) HLD (hyperlipidemia) T2DM (type 2 diabetes mellitus) COPD exacerbation Hyperkalemia Atherosclerotic cardiovascular disease GERD (gastroesophageal reflux disease) CVA (cerebral vascular accident) Breast pain, right Rash Bloody diarrhea PAD (peripheral artery disease) Hyperlipidemia LDL goal <100 COPD (chronic obstructive pulmonary disease) Infiltrating ductal carcinoma of left breast, stage 2 Insomnia Dyslipidemia Bipolar 1 disorder, depressed Cough Restrictive airway disease Hypothyroid IDDM (insulin dependent diabetes mellitus) Vitamin D deficiency Osteoporosis Hyperparathyroidism Thyroid nodule Depression Fibromyalgia Seropositive rheumatoid arthritis Reactive airways dysfunction syndrome Allergic rhinitis Irritable bowel Anxiety Bronchial asthma Diabetes type 2, uncontrolled Hypertension Surgical History Hx of sigmoidoscopy History of bronchoscopy Hx of endoscopy H/O cardiac catheterization History of lumpectomy of left breast History of pubovaginal sling History of esophagogastroduodenoscopy (EGD) History of tubal ligation History of colonoscopy History of bunionectomy of both great toes H/O: hysterectomy Family History Mother Diabetes HTN (hypertension) Uterus cancer Malignant tumor of head Breast cancer Father Diabetes HTN (hypertension) CVD (cardiovascular disease) Heart problem Maternal Aunt Breast cancer Brother Myocardial infarction S/P CABG x 4 Family/Other FH: mental illness Family/Other Lung cancer Other Mental health disorder Social History Household Members: Family Household Members Other:: sister Housing: House Are you a primary health care recruiter to a significant other at home: No Do you presently have visiting nurse or other home services: Yes (sister is SHEET METAL SUPERVISOR) Unable to assess alcohol history related to: Unknown Alcohol intake: never Patient Tobacco Use Status: Current everyday Tobacco user Tobacco use type: Cigarette Cigarette Packs Per Day: 0.5 Cigarettes Per Day: 2 Years Smoked: 48 e-Cigarette/Vaping Use: Never Used Second Hand Smoke Exposure: No Substance Use Type: Marijuana Advance Directives Date on File: 12/22/21 service: No Current occupational status: disabled Current occupation: rt handed Cognitive needs: No Hearing needs: No Vision needs: Yes Review of Systems Const Reports as per HPI Eyes Reports no additional complaints ENT Reports no additional complaints Card Reports as per HPI Resp Reports as per HPI GI Reports as per HPI Reports as per HPI Musc Reports as per HPI Neuro Reports as per HPI Psych Reports as per HPI Physical Exam Const General: cooperative, healthy appearing, comfortable, no acute distress, well developed, alert and awake Orientation/consciousness: patient oriented x3 Limitations: no limitations HEENT Head: Yes normal to inspection, Yes normocephalic and Yes atraumatic Ears: hearing grossly normal bilaterally Eyes General: appearance normal, both eyes and all related structures Neck Neck: Yes normal visual inspection and Yes trachea midline Chest Chest palpation & inspection: normal inspection of the chest Resp Effort & Inspection: normal respiratory effort and able to speak in complete sentences Cardio Rate: regular rate GI Inspection: Yes normal to inspection General: Yes no CVA tenderness Back/Spine/Pelvis Back: no CVA tenderness Skin General skin exam: no rashes or lesions noted Neuro General: patient oriented x3 Extrem General: Yes normal to inspection Psych Appearance: grossly normal and well kempt Mental Status: mental status grossly normal Speech and movement: Normal speech and movement present and Clear speech present Affect: normal affect Attitude: cooperative Thought process: Normal thought process present Thought content: Normal thought content present Insight: Fair insight present (Psych) Judgement: Fair judgement present (Psych) Results AMB Urinalysis, Automated UA Leukoctes 500 [place]/uL Last Edit by [employer] on 04/07/24 09:46 UA Nitrite Negative Last Edit by [employer] on 04/07/24 09:46 UA Urobilinogen 0.2 mg/dL Last Edit by [employer] on 04/07/24 09:46 UA Protein 15 mg/dL Last Edit by [employer] on 04/07/24 09:46 UA pH 6.0 Last Edit by [employer] on 04/07/24 09:46 UA Blood 0 Mike/uL Last Edit by [employer] on 04/07/24 09:46 UA Specific [place] 1.020 Last Edit by [employer] on 04/07/24 09:46 UA Ketone Negative Last Edit by [employer] on 04/07/24 09:46 UA Bilirubin 0 mg/dL Last Edit by [employer] on 04/07/24 09:46 UA Glucose 0 mg/dL Last Edit by [employer] on 04/07/24 09:46 Quality Reporting (2019) Adult ([facility] 138/[birth year]/09/[birth year]) Smoking risk assessment performed?: Yes Patient Tobacco Use Status: Current everyday Tobacco user Results Reviewed Results Reviewed: Laboratory Last Values Urine pH (Auto) 6.0 04/07/24 09:37 Specific [place] (Auto) 1.020 04/07/24 09:37 Urine Protein (Auto) 15 mg/dL 04/07/24 09:37 Glucose (UA)(Auto) 0 mg/dL 04/07/24 09:37 Urine Ketones (Auto) Negative 04/07/24 09:37 Urine Blood (Auto) 0 Mike/uL 04/07/24 09:37 Urine Nitrite (Auto) Negative 04/07/24 09:37 Urine Bilirubin (Auto) 0 mg/dL 04/07/24 09:37 Urine Urobilinogen (Auto) 0.2 mg/dL 04/07/24 09:37 Leukocyte Esterase (Auto) 500 [place]/uL 04/07/24 09:37 Date of Service: 03/27/24 EXAMINATION: US RETROPERITONEAL LIMITED (RENAL ONLY) FINDINGS: RIGHT KIDNEY: 10.1 x 4.1 x 4.8 cm (SAG x AP x TRV). No hydronephrosis. No renal calculi. Renal cortical thickness is normal. Limited visualization. LEFT KIDNEY: 9.7 x 3.4 x 4.0 cm (SAG x AP x TRV). No hydronephrosis. No renal calculi. Renal cortical thickness is normal. Limited visualization. IMPRESSION: No hydronephrosis. No renal calculi. Assessment & Plan Assessment & Plan (1) Kidney stones: Code(s): N20.0 - Calculus of kidney Category: Medical (2) Sensation of pressure in bladder area: Code(s): R39.89 - Other symptoms and signs involving the genitourinary system Category: Medical (3) Urinary tract infection: Code(s): N39.0 - Urinary tract infection, site not specified Category: Medical Plan In office urinalysis results reviewed with the patient today; as noted above; will send for urine culture. Recent renal imaging results reviewed with the patient today; as noted above. Start Macrobid as discussed and prescribed. Discussed at length potential causes for urinary tract infection. Discussed, educated, and stressed the importance of drinking water daily. Discussed calling gastroenterology to discuss potential UTI in relation to upcoming surgical procedure. Follow-up in 1-3 months with [facility]; or sooner with any issues, concerns, and or questions. Orders: Orders Urine Culture Today Z13.9 - Encounter for screening, unspecified AMB Urinalysis Automated Today Z13.9 - Encounter for screening, unspecified Medications: New nitrofurantoin macrocrystal must administer with a meal/food 100 mg PO BID 20 caps 0RF 10 days N39.0 - Urinary tract infection, site not specified Patient Instructions: The patient had an opportunity to ask questions regarding the treatment plan. All questions were answered. Physical exam, labs, and imaging were discussed and reviewed in detail. As well as risks, benefits, and discussion of treatment choices. No major barriers to understanding were identified. The patient expressed understanding and agreement with the above treatment plan. The patient was made aware they should contact our office by phone for worsening of their current condition, the appearance of new symptoms, or with any questions or concerns. Compliance is encouraged with any medications and follow up testing that is ordered. It is a privilege to be allowed the opportunity to participate in? your urological care.? Again, if you have any questions or concerns If you have any questions or concerns please do not hesitate to contact me. The office is [phone]. This note is constructed using voice recognition software. While every effort has been made to ensure accuracy social science teacher errors may have been included. Yours sincerely, LUIS E Pagan Coding Level of Care Code Est Pt Level 4 (54140) Diagnoses Kidney stones N20.0 Sensation of pressure in bladder area R39.89 Urinary tract infection N39.0
== END 2024-04-07 09:59 | disposition home or self-care (01) ==
PROVIDERS: PCP Internal Medicine; Visit Provider Nurse Practitioner Family
DX: N20.0 Calculus of kidney (principal); R39.89 Other symptoms and signs involving the genitourinary system; N39.0 Urinary tract infection, site not specified; Z13.9 Encounter for screening, unspecified
CPT/HCPCS: 99214

== ENCOUNTER 2024-04-07 09:08 | Outpatient (REF) | payer OTHER, SELFPAY ==
[2024-03-04 09:33] VITALS: BP 96/60; BP 96/66; BMI 22.5
== END 2024-04-07 09:09 | disposition home or self-care (01) ==
LOC: HO.LNP 09:08
PROVIDERS: PCP Internal Medicine; Visit Provider Nurse Practitioner Family
DX: N20.0 Calculus of kidney (principal); N39.0 Urinary tract infection, site not specified; R39.89 Other symptoms and signs involving the genitourinary system
CPT/HCPCS: 81003; 87086; 99212

== ENCOUNTER 2024-04-15 10:28 | Inpatient (IN) | payer OTHER, SELFPAY ==
[2024-03-04 09:33] VITALS: BP 96/60; BP 96/66; BMI 22.5
[2024-04-08 12:17] VITALS: BP 114/81; PULSE 82; RESP 16; O2SAT 97; BMI 21.4
--- NOTE | 2024-04-08 12:36 | HO.ANESPROP2 ---
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 Activity limited to pain (divertic, RA) CAD: ND 2021. Stable. Follows [facility] [place] cardiology. (Nml cath 08/2023) COPD/Asthma: Follows Dr Duncan. Controlled on trelegy. Rare albuterol need DM: Does not check. February 2024 A1C ~ 6% GERD: Uncontrolled on rx. CVA: ~ 7 years ago, no residual. Possible stroke 2021 with ND RA: Methotrexate weekly. Will hold dose prior surgery. Anesthesia Pre-Procedure Meds Is the patient on any of the following meds?: GLP1/DPP4 PMFSH Active Problems Active Problems: All Active Problems Urinary tract infection (Acute) Sensation of pressure in bladder area (Acute) Right sided sciatica (Acute) Polyneuropathy (Acute) Left leg paresthesias (Acute) Thoracic back pain (Acute) Left leg pain (Acute) Foot pain, left (Acute) Gastroparesis (Acute) Hypokalemia (Acute) Kidney stones (Acute) Sinus tachycardia (Acute) Lumbar degenerative disc disease (Acute) Essential hypertension (Acute) Smoker (Acute) nursing home (current) use of insulin (Acute) Stented coronary artery (Acute) Diabetes mellitus (Acute) NSTEMI (non-ST elevated myocardial infarction) (Acute) Raynauds disease (Acute) Allergic rhinitis (Acute) History of Helicobacter pylori infection (Acute) History of ischemic colitis (Acute) COPD (chronic obstructive pulmonary disease) (Acute) Asthma (Acute) Allergic rhinitis (Acute) HTN (hypertension) (Acute) nursing home (current) use 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 (Acute) Hospital discharge follow-up (Acute) Tendonitis of ankle or foot (Acute) Colitis (Acute) Cough (Acute) Anxiety (Acute) HLD (hyperlipidemia) (Acute) H/O cardiac catheterization (Acute) PAD (peripheral artery disease) (Acute) Hyperlipidemia LDL goal <100 (Acute) Infiltrating ductal carcinoma of left breast, stage 2 (Acute) Insomnia (Acute) Dyslipidemia (Acute) Bipolar 1 disorder, depressed (Acute) Cough (Acute) Restrictive airway disease (Acute) Vitamin D deficiency (Acute) Osteoporosis (Acute) Hyperparathyroidism (Acute) Thyroid nodule (Acute) Fibromyalgia (Acute) Seropositive rheumatoid arthritis (Acute) Reactive airways dysfunction syndrome (Acute) Allergic rhinitis (Acute) Diabetes type 2, uncontrolled (Acute) Past Medical History 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 Acute respiratory distress Tendonitis of ankle or foot Cough Stable angina Anxiety CAD (coronary artery disease) HLD (hyperlipidemia) HTN (hypertension) COPD exacerbation Hyperkalemia Atherosclerotic cardiovascular disease Hospital discharge follow-up Colitis GERD (gastroesophageal reflux disease) CVA (cerebral vascular accident) (~2018) Breast pain, right Rash Bloody diarrhea PAD (peripheral artery disease) Hyperlipidemia LDL goal <100 COPD (chronic obstructive pulmonary disease) Infiltrating ductal carcinoma of left breast, stage 2 Insomnia Dyslipidemia Bipolar 1 disorder, depressed Cough Restrictive airway disease Hypothyroid IDDM (insulin dependent diabetes mellitus) Vitamin D deficiency Osteoporosis Breast cancer Hyperparathyroidism Thyroid nodule T2DM (type 2 diabetes mellitus) Depression Fibromyalgia Seropositive rheumatoid arthritis Reactive airways dysfunction syndrome Allergic rhinitis Irritable bowel Anxiety Bronchial asthma Diabetes type 2, uncontrolled Family History Family History Mother Diabetes HTN (hypertension) Uterus cancer Malignant tumor of head Breast cancer Father Diabetes HTN (hypertension) CVD (cardiovascular disease) Heart problem Maternal Aunt Breast cancer Brother Myocardial infarction S/P CABG x 4 Family/Other FH: mental illness Family/Other Lung cancer Other Mental health disorder Family history of problems with anesthesia: No Surgical History Surgical History Hx of sigmoidoscopy History of bronchoscopy Hx of endoscopy H/O cardiac catheterization History of lumpectomy of left breast History of pubovaginal sling History of esophagogastroduodenoscopy (EGD) History of tubal ligation History of colonoscopy History of bunionectomy of both great toes H/O: hysterectomy History of Problems with Anesthesia: No Social History Social History Household Members: Family Household Members Other:: sister Housing: House Are you a primary insurance healthcare consultant to a significant other at home: No Do you presently have visiting nurse or other home services: Yes (RAILROAD MAINTENANCE CLERK-sister) Unable to assess alcohol history related to: Unknown Alcohol intake: never Patient Tobacco Use Status: Current everyday Tobacco user Tobacco use type: Cigarette Cigarette Packs Per Day: 0.5 Cigarettes Per Day: 4 Years Smoked: 48 Smoked in Last 30 Days: Yes e-Cigarette/Vaping Use: Never Used Patient Interested in Nicotine Replacement: No Second Hand Smoke Exposure: No Use of substances other than those prescribed or required for medical reasons: Yes Substance Use Type: Marijuana Substance Use Frequency: Occasionally Have you been hit, kicked, punched, or otherwise hurt by someone within the past year? If so, by whom?: No Are you DNR?: No Advance Directives: Yes Advance Directives Information Provided: No Advance Directives on File: Yes Advance Directives Date on File: 12/22/21 Recently lost weight without trying: Yes How much weight loss: 2-13 pounds Eating poorly because of decreased appetite: Yes Nutrition screen score: 4 Nutrition Risks: Poor intake 0-25% >4 days Poor oral hygiene: Yes (only has 8 teeth) service: No Current occupational status: disabled Current occupation: rt handed Cognitive needs: No Hearing needs: No Vision needs: Yes Meds Allergies Allergy/AdvReac Type Severity Reaction Status Date / Time methylprednisolone Allergy Severe Rash from Verified 04/15/24 06:18 Solu-Medrol shellfish derived Allergy Intermediate Hives Verified 04/15/24 06:18 etanercept [From Enbrel] AdvReac Severe Facial Verified 04/15/24 06:18 Swelling metformin AdvReac Severe Diarrhea Verified 04/15/24 06:18 metronidazole [From FLAGYL] AdvReac Severe Diarrhea Verified 04/15/24 06:18 prednisone AdvReac Intermediate hallucinations, Verified 04/15/24 06:18 more than 20 mg doses Home Medications ?Medication ?Instructions ?Recorded ?Confirmed ?Last Taken ?Type albuterol sulfate 90 mcg/actuation 2 inh inhalation Q4H PRN Shortness 08/23/23 04/15/24 09/26/23 History aerosol inhaler Of Breath Or Wheezing fluticasone fur. 200 mcg-umeclid 1 ea inhalation DAILY 02/06/24 04/15/24 04/14/24 History 62.5 mcg-vilant 25 mcg inhalat.powder (Trelegy Ellipta) capsaicin-menthol 0.025 %-1.25 % 1 patch topical NEEDED PRN Pain 04/15/24 04/15/24 Unknown History topical patch (Salonpas (capsaicin-menthol)) Exam Height,Weight and Vital Signs: Height 4 ft 9 in Weight 44.906 kg Last Vital Signs Pulse 82 04/08/24 12:17 Resp 16 04/08/24 12:17 BP 114/81 04/08/24 12:17 Pulse Ox 97 04/08/24 12:17 O2 Del Method Room Air 04/08/24 12:17 Pertinent Lab Results Pertinent Lab Results: Laboratory Tests 03/27/24 14:50 WBC 8.1 Hgb 13.7 Hct 39.7 Plt Count 339 Sodium 141 Potassium 4.1 Chloride 107 Carbon Dioxide 22 BUN 10 Creatinine 0.82 Lab Results 04/08/24 Range/Units 13:10 Blood Type O Positive Antibody Screen NEGATIVE Narrative Narrative: EKG 11/2023 Vent. Rate : 095 BPM Atrial Rate : 095 BPM P-R Int : 134 ms QRS Dur : 084 ms QT Int : 346 ms P-R-T Axes : 075 081 067 degrees QTc Int : 434 ms Normal sinus rhythm Normal ECG When compared with ECG of 11-DEC-2023 10:25, No significant change was found ECHO 2022 Conclusions: - The left ventricular systolic function is normal. The calculated ejection fraction is 60% by biplane method. - No obvious valvular pathology seen on this study. NM cardiolite stress test 2022 IMPRESSION: 1. Myocardial perfusion imaging study shows probably normal myocardial perfusion. No clear evidence of any ischemia or infarction. 2. Gated LVEF is 68% during stress and > 70% during rest. 3. Transient ischemic dilatation not present.NM cardiolite stress test cardiac catheterization 08/2023 stable disease with no significant LAD or RCA stenosis. Her previous circumflex stents were patent. Airway Mallampati Class: I TM Dist: >3cm Neck ROM: Full Loose/Missing/Broken Teeth: Yes (Only 8 front teeth remain, denies loose/broken) Heart: RRR Lungs: CTAB Assessment and Plan Assessment Anesthesia Assessment: Anesthesia Plan Discussed, Smoking Cess. Discussed and PAT Visit Final Anesthetic Review Family History of Problems with Anesthesia: No History of Problems with Anesthesia: No Documented by User: Nisreen Haro MD 04/15/24 09:04 HPI - Anesthesia Eval Anesthesia Pre-Procedure Meds Is the patient on any of the following meds?: GLP1/DPP4 (Last dose 04/08/24) PMFSH Active Problems Active Problems: All Active Problems Urinary tract infection (Acute) Sensation of pressure in bladder area (Acute) Right sided sciatica (Acute) Polyneuropathy (Acute) Left leg paresthesias (Acute) Thoracic back pain (Acute) Left leg pain (Acute) Foot pain, left (Acute) Gastroparesis (Acute) Hypokalemia (Acute) Kidney stones (Acute) Sinus tachycardia (Acute) Lumbar degenerative disc disease (Acute) Essential hypertension (Acute) Smoker (Acute) nursing home (current) use of insulin (Acute) Stented coronary artery (Acute) Diabetes mellitus (Acute) NSTEMI (non-ST elevated myocardial infarction) (Acute) Raynauds disease (Acute) Allergic rhinitis (Acute) History of Helicobacter pylori infection (Acute) History of ischemic colitis (Acute) COPD (chronic obstructive pulmonary disease) (Acute). On trelegy. Asthma (Acute) Allergic rhinitis (Acute) HTN (hypertension) (Acute)- Patient not taking medication? 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 Now only on aspirin. Denies recent chest pain PAD (peripheral artery disease) (Acute) Hyperlipidemia LDL goal <100 (Acute) Infiltrating ductal carcinoma of left breast, stage 2 (Acute) Insomnia (Acute) Dyslipidemia (Acute) Bipolar 1 disorder, depressed (Acute) Cough (Acute) Restrictive airway disease (Acute) Vitamin D deficiency (Acute) Osteoporosis (Acute) Hyperparathyroidism (Acute) Thyroid nodule (Acute) Fibromyalgia (Acute) Seropositive rheumatoid arthritis (Acute) Reactive airways dysfunction syndrome (Acute) Allergic rhinitis (Acute) Diabetes type 2, uncontrolled (Acute) Smoker- last cigarette yesterday Marijuana use- last ?2days ago Past Medical History 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 Acute respiratory distress Tendonitis of ankle or foot Cough Stable angina Anxiety CAD (coronary artery disease) HLD (hyperlipidemia) HTN (hypertension) COPD exacerbation Hyperkalemia Atherosclerotic cardiovascular disease Hospital discharge follow-up Colitis GERD (gastroesophageal reflux disease) CVA (cerebral vascular accident) (~2018) Breast pain, right Rash Bloody diarrhea PAD (peripheral artery disease) Hyperlipidemia LDL goal <100 COPD (chronic obstructive pulmonary disease) Infiltrating ductal carcinoma of left breast, stage 2 Insomnia Dyslipidemia Bipolar 1 disorder, depressed Cough Restrictive airway disease Hypothyroid IDDM (insulin dependent diabetes mellitus) Vitamin D deficiency Osteoporosis Breast cancer Hyperparathyroidism Thyroid nodule T2DM (type 2 diabetes mellitus) Depression Fibromyalgia Seropositive rheumatoid arthritis Reactive airways dysfunction syndrome Allergic rhinitis Irritable bowel Anxiety Bronchial asthma Diabetes type 2, uncontrolled Family History Family History Mother Diabetes HTN (hypertension) Uterus cancer Malignant tumor of head Breast cancer Father Diabetes HTN (hypertension) CVD (cardiovascular disease) Heart problem Maternal Aunt Breast cancer Brother Myocardial infarction S/P CABG x 4 Family/Other FH: mental illness Family/Other Lung cancer Other Mental health disorder Family history of problems with anesthesia: No Surgical History Surgical History Hx of sigmoidoscopy History of bronchoscopy Hx of endoscopy H/O cardiac catheterization History of lumpectomy of left breast History of pubovaginal sling History of esophagogastroduodenoscopy (EGD) History of tubal ligation History of colonoscopy History of bunionectomy of both great toes H/O: hysterectomy History of Problems with Anesthesia: No Social History Social History Household Members: Family Household Members Other:: sister Housing: House Are you a primary insurance healthcare consultant to a significant other at home: No Do you presently have visiting nurse or other home services: Yes (RAILROAD MAINTENANCE CLERK-sister) Unable to assess alcohol history related to: Unknown Alcohol intake: never Patient Tobacco Use Status: Current everyday Tobacco user Tobacco use type: Cigarette Cigarette Packs Per Day: 0.5 Cigarettes Per Day: 4 Years Smoked: 48 Smoked in Last 30 Days: Yes e-Cigarette/Vaping Use: Never Used Patient Interested in Nicotine Replacement: No Second Hand Smoke Exposure: No Use of substances other than those prescribed or required for medical reasons: Yes Substance Use Type: Marijuana Substance Use Frequency: Occasionally Have you been hit, kicked, punched, or otherwise hurt by someone within the past year? If so, by whom?: No Are you DNR?: No Advance Directives: Yes Advance Directives Information Provided: No Advance Directives on File: Yes Advance Directives Date on File: 12/22/21 Recently lost weight without trying: Yes How much weight loss: 2-13 pounds Eating poorly because of decreased appetite: Yes Nutrition screen score: 4 Nutrition Risks: Poor intake 0-25% >4 days Poor oral hygiene: Yes (only has 8 teeth) service: No Current occupational status: disabled Current occupation: rt handed Cognitive needs: No Hearing needs: No Vision needs: Yes Meds Allergies Allergy/AdvReac Type Severity Reaction Status Date / Time methylprednisolone Allergy Severe Rash from Verified 04/15/24 06:18 Solu-Medrol shellfish derived Allergy Intermediate Hives Verified 04/15/24 06:18 etanercept [From Enbrel] AdvReac Severe Facial Verified 04/15/24 06:18 Swelling metformin AdvReac Severe Diarrhea Verified 04/15/24 06:18 metronidazole [From FLAGYL] AdvReac Severe Diarrhea Verified 04/15/24 06:18 prednisone AdvReac Intermediate hallucinations, Verified 04/15/24 06:18 more than 20 mg doses Home Medications ?Medication ?Instructions ?Recorded ?Confirmed ?Last Taken ?Type albuterol sulfate 90 mcg/actuation 2 inh inhalation Q4H PRN Shortness 08/23/23 04/15/24 09/26/23 History aerosol inhaler Of Breath Or Wheezing fluticasone fur. 200 mcg-umeclid 1 ea inhalation DAILY 02/06/24 04/15/24 04/14/24 History 62.5 mcg-vilant 25 mcg inhalat.powder (Trelegy Ellipta) capsaicin-menthol 0.025 %-1.25 % 1 patch topical NEEDED PRN Pain 04/15/24 04/15/24 Unknown History topical patch (Salonpas (capsaicin-menthol)) Exam Height,Weight and Vital Signs: Height 4 ft 9 in Weight 44.906 kg Last Vital Signs Pulse 82 04/08/24 12:17 Resp 16 04/08/24 12:17 BP 114/81 04/08/24 12:17 Pulse Ox 97 04/08/24 12:17 O2 Del Method Room Air 04/08/24 12:17 Vital Signs Temp Pulse Resp BP Pulse Ox O2 Del Method 04/15/24 06:15 98.9 F 79 16 136/86 98 Room Air Pertinent Lab Results Pertinent Lab Results: Laboratory Tests 03/27/24 14:50 WBC 8.1 Hgb 13.7 Hct 39.7 Plt Count 339 Sodium 141 Potassium 4.1 Chloride 107 Carbon Dioxide 22 BUN 10 Creatinine 0.82 Lab Results 04/08/24 Range/Units 13:10 Blood Type O Positive Antibody Screen NEGATIVE Laboratory Results - last 24 hr 04/15/24 07:24 Urine Opiates Screen Not Detected Ur Buprenorphine Scrn Not Detected Ur Oxycodone Screen Positive H Urine Methadone Screen Not Detected Urine Fentanyl Screen Not Detected Ur Barbiturates Screen Not Detected Ur Phencyclidine Scrn Not Detected Ur Amphetamines Screen Not Detected U Benzodiazepines Scrn Not Detected Urine Cocaine Screen Not Detected U Marijuana (THC) Screen POSITIVE H Airway Mallampati Class: II TM Dist: >3cm Neck ROM: Full Lungs: CTAB. No wheezing Assessment and Plan Assessment Anesthesia Assessment: Anesthesia Plan Discussed, PAT Visit and Chart Reviewed Final Anesthetic Review Family History of Problems with Anesthesia: No History of Problems with Anesthesia: No NPO: Yes ASA Class: III Final Preanesthetic Review: No Changes in Pt Med Stat, Meds/Allgs Chart Reviewed, Consent Obtained/Reviewed and Anes Risks/Benef Reviewed Patient Risk: Intermediate Procedure Risk: Intermediate Assessment/Block/Sedation in : Assess/Block/Sedation- Anesthetic Plan Anesthetic Plan: GA Disposition: Standard PACU and Inp. Admit - Standard Bed
[2024-04-15] VITALS (14 sets, daily range): BP systolic 115–141; BP diastolic 55–86; PULSE 67–89; RESP 14–19; TEMP 36.2–37.2; O2SAT 88–99; BMI 21.3
--- NOTE | ~2024-04-15 | CT_ITS ---
EXAMINATION: CT ABDOMEN AND PELVIS WITH CONTRAST CLINICAL INFORMATION: Status post colectomy, abdominal pain COMPARISON: 03/27/2024 TECHNIQUE: Multidetector volumetric images were obtained from the superior aspect of the liver through the pubic symphysis following administration 85 mL of Omnipaque 350 intravenous contrast. Gastrografin given as well orally. Sagittal and coronal reformatted images were obtained on the technologist's workstation. Oral contrast: No This CT examination was performed using dose optimization techniques as appropriate, variously including the following: *Automated exposure control *Adjustment of mA and/or kV according to patient size (this includes techniques or standardized protocols for targeted exams where dose is matched to indication/reason for exam; i.e. extremities or head) *Use of iterative reconstruction technique DLP: 300 mGy-cm FINDINGS: LUNG BASES: The visualized lung bases are unremarkable. LIVER, GALLBLADDER, AND BILIARY TREE: There is focal fatty infiltration along the falciform ligament in the right lobe. Otherwise the liver is unremarkable. The gallbladder is unremarkable with no evidence of radiopaque gallstones, gallbladder wall thickening, or obvious pericholecystic inflammatory changes. PANCREAS: Unremarkable. SPLEEN: Unremarkable. ADRENAL GLANDS: Unremarkable. KIDNEYS AND URETERS: The kidneys are normal in size, shape, and attenuation. No hydronephrosis, hydroureter, or calculi seen. No perinephric stranding. BLADDER: Unremarkable. GASTROINTESTINAL TRACT: Patient is status post sigmoid colectomy. There are expected postsurgical changes in the left lower quadrant. There is small amount of fluid and bubbles of air in the presacral region and small amount of free air adjacent to the urinary bladder and anterior abdominal wall. There is trace of subcutaneous air seen in the lower abdomen and along the scar. ABDOMINAL WALL: There are postsurgical changes on the anterior abdominal wall with small amount of free air. LYMPH NODES: Normal. VASCULAR: Unremarkable. PELVIC VISCERA: Patient is status post hysterectomy OSSEOUS STRUCTURES: Unremarkable. CT/CT abdomen pelvis w IV con IMPRESSION: Status post left colectomy with free air in the pelvis, mesenteric, subcutaneous tissues most likely related to recent surgery. Small amount of fluid in the presacral space Fleischner guidelines were followed.
--- NOTE | ~2024-04-15 | CT_ITS ---
EXAMINATION: CT ABDOMEN AND PELVIS WITHOUT CONTRAST CLINICAL INFORMATION: Reason for Exam new bump above midline abd incision with pain. COMPARISON: 04/19/2024 TECHNIQUE: Multidetector volumetric imaging was performed from the superior aspect of the liver through the pubic symphysis. Sagittal and coronal reformatted images were obtained on the technologist's workstation. This CT examination was performed using dose optimization techniques as appropriate, variously including the following: *Automated exposure control *Adjustment of mA and/or kV according to patient size (this includes techniques or standardized protocols for targeted exams where dose is matched to indication/reason for exam; i.e. extremities or head) *Use of iterative reconstruction technique DLP: 312 mGy-cm FINDINGS: LUNG BASES: The visualized lung bases are unremarkable. LIVER, GALLBLADDER, AND BILIARY TREE: The liver is normal in size, shape, and attenuation. Focal fatty infiltration of the falciform ligament. No biliary ductal dilatation is identified on this noncontrast exam. The gallbladder is unremarkable. PANCREAS: Unremarkable. SPLEEN: Unremarkable. ADRENAL GLANDS: Unremarkable. KIDNEYS AND URETERS: No hydronephrosis or obstructing calculus bilaterally. BLADDER: Partially distended. Small amount of gas in the bladder may be due to recent catheterization. GASTROINTESTINAL TRACT: Oral contrast material is now present in the colon. No evidence of bowel obstruction. Redemonstrated suture line in the rectosigmoid region. No significant bowel wall thickening is seen. Redemonstrated free air in the pelvis as well as trace presacral fluid and stranding. No discrete fluid collection is seen. Right-sided colonic diverticulosis noted. The appendix contains gas. ABDOMINAL WALL: Stranding is present in the lower anterior abdominal wall along with foci of gas, presumably related to recent surgery. LYMPH NODES: Normal. VASCULAR: Scattered atherosclerotic calcifications. PELVIC VISCERA: Status post hysterectomy. OSSEOUS STRUCTURES: Unremarkable. CT/CT abdomen pelvis wo IV con IMPRESSION: 1. Postoperative changes of the colon with suture line in the rectosigmoid region. Redemonstrated free air in the pelvis as well as trace presacral fluid and stranding, presumably reflecting postsurgical changes; in the proper clinical setting, free air from bowel injury would be difficult to exclude. No discrete fluid collection identified on this noncontrast exam. 2. Small amount of gas in the urinary bladder may be due to recent catheterization. 3. Stranding and foci of gas in the lower anterior abdominal wall, presumably postoperative.
[2024-04-15] MEDS: Famotidine/PF 20 MG/2 ML VIAL IVPUSH (07:00)
[2024-04-15] MEDS: Lactated Ringers 1,000 ML 100 ML IVCONT ×2 (07:00→12:45)
--- NOTE | 2024-04-15 07:21 | MHC.SHP ---
Pre-Procedural Eval Section A - 24 Hr Update-Section A only Date of Service: 04/15/24 The patient is an INPATIENT: No Changes since office visit: Yes Patient answered all questions; No Cold of Flu in the past 2 weeks, No New Medical Problems and No Changes in Medication The patient has been examined within 24 hours of the surgical procedure. The History & Physical has been completed within 30 days and I have reviewed it.: Yes Section B - Complete if H&P > 30 days Chief Complaint: Diverticulosis of large intestine without perforat Allergies: Allergies Allergy/AdvReac Type Severity Reaction Status Date / Time methylprednisolone Allergy Severe Rash from Verified 04/15/24 06:18 Solu-Medrol shellfish derived Allergy Intermediate Hives Verified 04/15/24 06:18 etanercept [From Enbrel] AdvReac Severe Facial Verified 04/15/24 06:18 Swelling metformin AdvReac Severe Diarrhea Verified 04/15/24 06:18 metronidazole [From FLAGYL] AdvReac Severe Diarrhea Verified 04/15/24 06:18 prednisone AdvReac Intermediate hallucinations, Verified 04/15/24 06:18 more than 20 mg doses Plan Diagnosis/Plan: Unchanged I have reviewed the history and physical and performed a pertinent physical examination on my patient. No changes have occurred unless specified. Time Spent With Patient Time: Total time managing care of this patient today ____ minutes.
--- NOTE | 2024-04-15 07:35 | PC.NURSE ---
Urine for UTOX screen obtained per Dr. Haro. Results pending. Patient into OR prior to it resulting per anesthesia Dr. Haro and Dr. Rodriguez.
[2024-04-15 07:45] LABS: Amphetamine Screen Urine Not Detected (Not Detect); Barbiturates, Urine Not Detected (Not Detect); Benzodiazepines Screen Urine Not Detected (Not Detect); Buprenorphine Scr Not Detected (Not Detect); Cannabinoid Screen Urine POSITIVE (Not Detect); Cocaine Screen Urine Not Detected (Not Detect); Fentanyl, urine Not Detected (Not Detect); Methadone Screen, Urine Not Detected (Not Detect); Opiate Screen Urine Not Detected (Not Detect); Oxycodone Screen Urine Positive (Not Detect); Phencyclidine Screen Urine Not Detected (Not Detect)
[2024-04-15 09:00] LABS: Glucose, Whole Blood 114 mg/dL (60-115)
--- NOTE | 2024-04-15 10:30 | W.PM.OPN ---
Operative Note Operative Note Date of Service: 04/15/24 Narrative: Preoperative diagnosis: Sigmoid diverticulitis recurrent episodes Postoperative diagnosis: Same Procedure: Hand assisted laparoscopic sigmoid colectomy with colorectal anastomosis Surgeon: Hayden Rodriguez MD Fabric Pattern Grader: Shelli Martinez PA-C Anesthesia: General ET Indications for procedure: 63-year-old female patient presenting with complaints of persistent pain in the left lower quadrant found to have multiple episodes of diverticulitis treated intermittently with oral antibiotics and on 2 occasions requiring admission. She presents today for an elective sigmoid colectomy. Operative findings: Mildly thickened sigmoid colon with dense adhesions to pelvic sidewall and several loops of small bowel. Specimen: Sigmoid colon Estimated blood loss: 25 mL Complications: None Procedure details: Patient was brought to the OR and placed in a supine position. After administering general anesthesia she was placed in a lithotomy position. A Fuentes catheter was placed and Venodyne boots were applied. The patient's abdomen and perineum were prepped draped in a sterile fashion. A surgical time-out was then called and the consent confirmed. Patient received preoperative antibiotics. A 7.5 cm incision was made in the lower midline and carried out through subcutaneous tissue up to the linea alba. This was then incised with electrocautery. The peritoneum was then entered in the abdomen explored. Dense adhesions were noted from prior pelvic surgery to the anterior abdominal wall. An extensive lysis of adhesions were performed using electrocautery. Hand port was then inserted in the abdomen insufflated to a pressure of 15 mmHg of CO2. A upper midline incision was then made and a 5 mm trocar inserted. A 12 mm trocar was then placed in the right upper quadrant and a 5 mm trocar placed in the left upper quadrant. The patient was placed in a Trendelenburg position and rotated to the left. Using the hand port the sigmoid colon was mobilized to the right. Adhesions were noted to the pelvic sidewall. Attachments were taken down using a LigaSure. This was continued proximally along the white line of Toldt to mobilize the left colon up to the splenic flexure. This was mobilized further onto the transverse colon to allow mobility. Further dissection was then continued along the sigmoid colon. A loop of small bowel was noted densely adherent to the sigmoid colon. This was carefully dissected free and protected using a lap sponge. The sigmoid colon was further mobilized down to the rectosigmoid junction. At this point an area of the proximal sigmoid colon was identified as a resection zone. A space was made below the bowel wall in the mesentery. A GURU stapler was then used to divide the sigmoid colon. LigaSure was then used to divide the mesentery down to the proximal rectum. A TA 60 stapler was then used to divide the rectum just beyond the sigmoid junction. Specimen was removed and sent to pathology for further examination. The proximal colon was then further mobilized along the mesentery. This was brought up through the incision. A pursestring was then applied to the proximal sigmoid colon. This was then sized with the EEA sizers. A 28 EEA stapler was then obtained. The anvil was placed into the proximal colon and the pursestring tied off. The rectum was then dilated as well up to a 29. The EEA device was then inserted through the anus and directed into the rectal stump. The spike was inserted into the anterior wall of the rectum and the anvil attached to the stapler. This was then fired. The anastomosis was reinforced using interrupted 3-0 Surgilon sutures. Stapler device was then removed in the leak test performed by instilling air into the rectum with a pelvis full of saline solution. No leak could be identified. The anastomosis was found to be not under a significant amount of tension with a good blood flow noted. Abdomen was then irrigated with saline solution and suctioned dry. Wounds were then checked for hemostasis. All trocars were then removed. Fascia was closed at the right lower quadrant trocar site (12 mm) using 0 Polysorb suture. The midline incision was closed using a running 0 looped PDS suture. Skin was closed in all incisions using a running subcuticular 4-0 Polysorb suture. Steri-Strips, gauze and Tegaderm were then applied. The patient tolerated the procedure well. Sponge, instrument, and needle counts reported as correct. The patient was transferred to PACU in stable condition.
[2024-04-15] MEDS: fentaNYL citrate/PF 100 MCG/2 ML VIAL 25 MCG IVPUSH (11:20)
--- NOTE | 2024-04-15 11:45 | PC.NURSE ---
PT CONSISTENTLY C/O 6 OF 10 PAIN. NO GRIMACE NOTED UNTIL COUGHING WITH INCREASED PAIN AT THAT TIME. MEDICATED AT THAT TIME. OTHER THOMAS PT STATES PAIN 6/10 WHILE LAUGHING AND INTERMITTENT SLEEPING. AFTER MEDICATION PT STATES PAIN BETTER WITH PAIN LEVEL 6/10.
[2024-04-15 12:17] LABS: Glucose, Whole Blood 109 mg/dL (60-115)
[2024-04-15] MEDS: oxyCODONE HCl Immed Release 5 MG TABLET PO ×2 (12:45→19:58)
[2024-04-15 13:50] LABS: Creatinine Clr Calc Pharmacy 36.3; Estimated Glomerular Filt Rate 57
[2024-04-15] MEDS: Acetaminophen 1,000 MG/100 ML PIGGYBACK 400 MG IV ×2 (13:57→20:58)
[2024-04-15] MEDS: HYDROmorphone HCl 0.5 MG/0.5 ML SYRINGE IVPUSH ×3 (14:19→20:58)
[2024-04-15 16:45] LABS: Glucose, Whole Blood 98 mg/dL (60-115)
--- NOTE | 2024-04-15 17:22 | PHA.MEDREC ---
Pharmacy Consult ? Medication Reconciliation Pharmacy has reviewed the medication reconciliation completed by nursing. Spoke with patient, she is no longer taking Atrovent or Capsaicin.
[2024-04-15 19:41] LABS: Glucose, Whole Blood 137 mg/dL (60-115)
[2024-04-15] MEDS: traZODone HCL 100 MG TABLET PO (19:58)
[2024-04-15] MEDS: Pregabalin 200 MG CAPSULE PO (19:58)
[2024-04-16] MEDS: HYDROmorphone HCl 0.5 MG/0.5 ML SYRINGE IVPUSH ×6 (01:33→20:59)
[2024-04-16 03:33] VITALS: BP 102/56; PULSE 67; RESP 20; TEMP 36.2; O2SAT 97
[2024-04-16 06:22] LABS: MANUAL DIFF FLAG NO
[2024-04-16 06:37] LABS: Basophils Percent Auto 0.3 % (0-2); Eosinophils Absolute Auto 0.1 X10*3/uL (0.0-0.4); Eosinophils Percent Auto 0.7 % (0-4); Hematocrit 33.1 % (37.0-47.0); Hemoglobin 11.2 g/dl (12.0-16.0); Imm Gran Abs Auto 0.05 X10*3/uL (0.00-0.03); Imm Gran Pct Auto 0.5 % (0.0-0.4); Lymphocytes Absolute Auto 2.6 X10*3/uL (1.2-4.9); Lymphocytes Percent Auto 27.1 % (20-40); Mean Corpuscular HGB Conc 33.8 g/dl (31.0-35.0); Mean Corpuscular Hemoglobin 29.6 pg (27.0-33.0); Mean Corpuscular Volume 87.6 fL (80.0-98.0); Mean Platelet Volume 11.5 fL (9.4-12.3); Monocytes Absolute Auto 0.4 X10*3/uL (0.1-1.2); Monocytes Percent Auto 4.5 % (2-11); Neutrophils Absolute Auto 6.4 x10*3/uL (2.0-8.3); Neutrophils Percent Auto 66.9 % (45-73); Platelet Count 217 X10*3/uL (160-400); Red Blood Count 3.78 X10*6/uL (4.20-5.50); Red Cell Distribution Width 15.8 % (11.0-16.0); White Blood Count 9.6 X10*3/uL (4.8-10.8)
[2024-04-16 06:43] LABS: Anion Gap 12 (12-20); Blood Urea Nitrogen 4 mg/dL (9-16); Calcium 8.3 mg/dL (8.4-10.2); Carbon Dioxide 23 mmol/L (22-29); Chloride 110 mmol/L (96-108); Creatinine Clr Calc Pharmacy 52.1; Estimated Glomerular Filt Rate > 60; Glucose Random 137 mg/dL (60-115); Potassium 3.5 mmol/L (3.3-5.1); Sodium 141 mmol/L (135-145)
--- NOTE | 2024-04-16 07:34 | P.PNGS_ITS ---
Subjective Subjective Date of Service: 04/16/24 Interval history: Patient reports incisional pain, fullness over the bladder. Fuentes was removed last night. She also reports passing several bloody BMs yesterday and today. Physical Exam 2 Vital Signs: Vital Signs: Last Vital Signs Temp 97.2 F 04/16/24 03:33 Pulse 67 04/16/24 03:33 Resp 20 04/16/24 03:33 BP 102/56 L 04/16/24 03:33 Pulse Ox 97 04/16/24 03:33 O2 Del Method Room Air 04/16/24 03:33 O2 Flow Rate 2 04/15/24 11:41 BMI result Body Mass Index 21.3 Const: General: no acute distress Nutritional Appearance: thin O rientation/consciousness: patient oriented x3 Limitations: no limitations Resp: Effort & Inspection: normal respiratory effort, no audible wheezes, no cough and no respiratory distress GI: Other: abdomen is soft, nondistended. Incisions are clean and intact. Percussion: Yes normal to percussion Neuro: General: patient oriented x3 Extrem: General: No edema Objective Data Active Medications Albuterol Sulfate (Albuterol Sulfate (0.083%) 2.5 Mg/3 Ml Vial.Neb) 2.5 mg INHALE ONCE PRN PRN Reason: Shortness of Breath/Wheezing Albuterol Sulfate (Albuterol Sulfate 90 Mcg 8 Gm Inhaler) 2 puff INHALE Q4H PRN PRN Reason: Shortness Of Breath Or Wheezing Enoxaparin Sodium (Enoxaparin Sodium 40 Mg/0.4 Ml Syringe) 40 mg SUBCUT Q24H [facility] Fluticasone/Umeclidinium/Vilanterol (Fluticasone/Umeclidinium/Vilanterol 200/62.5/25 Blst.W.Dev) 1 puff INHALE RDAILY [facility] Glucose (Glucose Gel 15 Gm Gel..Gram.) 15 gm PO Q15M PRN; Protocol PRN Reason: per Hypoglycemia Standing Ord. Hydromorphone HCl (Hydromorphone Hcl 0.5 Mg/0.5 Ml Syringe) 0.5 mg IVPUSH Q3H PRN; Protocol PRN Reason: Pain, Severe (Pain Scale 7-10) Last Admin: 04/16/24 05:12 Dose: 0.5 mg Documented By: OMAR Lactated Ringer's (Lr) 1,000 mls @ 100 mls/hr IVCONT .Q10H [facility] Last Admin: 04/16/24 02:33 Dose: Not Given Documented By: OMAR Non-Admin Reason: pt is having clear liquid intake/diet Acetaminophen (Ofirmev) 1,000 mg in 100 mls @ 400 mls/hr IV Q6H [facility] Last Admin: 04/16/24 03:00 Dose: Not Given Documented By: OMAR Non-Admin Reason: Patient Refused Dextrose (D10) 250 mls @ 750 mls/hr IV Q15M PRN; Protocol PRN Reason: per Hypoglycemia Standing Ord. Insulin Human Lispro (Insulin Lispro 100 Unit/Ml 3 Ml Vial) 0 unit SUBCUT QIDACHS [facility]; Protocol Stop: 04/16/24 12:02 Last Admin: 04/15/24 21:39 Dose: Not Given Documented By: OMAR Non-Admin Reason: No Insulin Coverage Letrozole (Letrozole 2.5 Mg Tablet) 2.5 mg PO DAILY [facility] Ondansetron HCl (Ondansetron Hcl 4 Mg/2 Ml Vial) 4 mg IVPUSH QID PRN PRN Reason: Nausea Oxycodone HCl (Oxycodone Hcl Immed Release 5 Mg Tablet) 5 mg PO Q6H PRN PRN Reason: Pain, Moderate(Pain Scale 4-6) Last Admin: 04/15/24 19:58 Dose: 5 mg Documented By: OMAR Pregabalin (Pregabalin 200 Mg Capsule) 200 mg PO BID [facility] Last Admin: 04/15/24 19:58 Dose: 200 mg Documented By: OMAR Sodium Chloride (0.9 % Sodium Chloride Flush 3 Ml Syringe) 3 ml IVFLUSH QSHIFT [facility] Last Admin: 04/15/24 23:37 Dose: Not Given Documented By: OMAR Non-Admin Reason: Patient Asleep Trazodone HCl (Trazodone Hcl 100 Mg Tablet) 100 mg PO BEDTIME [facility] Last Admin: 04/15/24 19:58 Dose: 100 mg Documented By: OMAR Labs 04/16/24 05:58 04/16/24 05:58 Labs: Laboratory Results - last 24 hr 04/15/24 04/15/24 04/15/24 06:13 07:24 12:14 MCV MCH MCHC RDW Plt Count MPV Immature Gran % (Auto) Neut % (Auto) Lymph % (Auto) [place] % (Auto) Eos % (Auto) Baso % (Auto) Lymph # (Auto) [place] # (Auto) Eos # (Auto) Baso # (Auto) Abs Immat Gran (auto) Absolute Neuts (auto) Absolute Nucleated RBC Nucleated RBC % (auto) Anion Gap Estim Creat Clear Calc Estimated GFR POC Glucose 114 109 Random Glucose Calcium Urine Opiates Screen Not Detected Ur Buprenorphine Scrn Not Detected Ur Oxycodone Screen Positive H Urine Methadone Screen Not Detected Urine Fentanyl Screen Not Detected Ur Barbiturates Screen Not Detected Ur Phencyclidine Scrn Not Detected Ur Amphetamines Screen Not Detected U Benzodiazepines Scrn Not Detected Urine Cocaine Screen Not Detected U Marijuana (THC) Screen POSITIVE H 04/15/24 04/15/24 04/15/24 13:19 16:37 19:36 MCV MCH MCHC RDW Plt Count MPV Immature Gran % (Auto) Neut % (Auto) Lymph % (Auto) [place] % (Auto) Eos % (Auto) Baso % (Auto) Lymph # (Auto) [place] # (Auto) Eos # (Auto) Baso # (Auto) Abs Immat Gran (auto) Absolute Neuts (auto) Absolute Nucleated RBC Nucleated RBC % (auto) Anion Gap Estim Creat Clear Calc 36.3 Estimated GFR 57 POC Glucose 98 137 H Random Glucose Calcium Urine Opiates Screen Ur Buprenorphine Scrn Ur Oxycodone Screen Urine Methadone Screen Urine Fentanyl Screen Ur Barbiturates Screen Ur Phencyclidine Scrn Ur Amphetamines Screen U Benzodiazepines Scrn Urine Cocaine Screen U Marijuana (THC) Screen 04/16/24 05:58 MCV 87.6 MCH 29.6 MCHC 33.8 RDW 15.8 Plt Count 217 D MPV 11.5 Immature Gran % (Auto) 0.5 H Neut % (Auto) 66.9 Lymph % (Auto) 27.1 [place] % (Auto) 4.5 Eos % (Auto) 0.7 Baso % (Auto) 0.3 Lymph # (Auto) 2.6 [place] # (Auto) 0.4 Eos # (Auto) 0.1 Baso # (Auto) 0.0 Abs Immat Gran (auto) 0.05 H Absolute Neuts (auto) 6.4 Absolute Nucleated RBC 0.000 Nucleated RBC % (auto) 0.0 Anion Gap 12 Estim Creat Clear Calc 52.1 Estimated GFR > 60 POC Glucose Random Glucose 137 H Calcium 8.3 L D Urine Opiates Screen Ur Buprenorphine Scrn Ur Oxycodone Screen Urine Methadone Screen Urine Fentanyl Screen Ur Barbiturates Screen Ur Phencyclidine Scrn Ur Amphetamines Screen U Benzodiazepines Scrn Urine Cocaine Screen U Marijuana (THC) Screen Procedures Date of Service Date of Service: 04/16/24 Progress Note: A&P Assessment and plan (1) Diverticulitis large intestine: Status: Acute (2) S/P laparoscopic colectomy: Status: Acute Plan 63 year old female POD #1 s/p DORCAS Sigmoid Colectomy with colorectal anastomosis. She reports incisional pain, improved with current pain meds. Had several bloody BMs: will hold Lovenox. Patient needs to be OOB and ambulate. Discussed with RN. PT consulted as well. Continue clear liquids. Time Spent With Patient Time: Total time managing care of this patient today ____ minutes. Quality Stroke Does the patient have a stroke diagnosis?: No VTE Prior VTE?: No VTE Risk Level:: Surgical - moderate VTE Device Contraindication: N/A - Device Ordered VTE Drug Contraindication: N/A - Med Ordered
[2024-04-16 07:45] VITALS: BP 155/88; PULSE 78; RESP 14; TEMP 36.2; O2SAT 98
[2024-04-16 07:46] LABS: Glucose, Whole Blood 131 mg/dL (60-115)
[2024-04-16] MEDS: oxyCODONE HCl Immed Release 5 MG TABLET PO ×3 (07:52→22:16)
[2024-04-16] MEDS: Acetaminophen 1,000 MG/100 ML PIGGYBACK 400 MG IV ×3 (07:52→20:58)
[2024-04-16] MEDS: 0.9 % Sodium Chloride Flush 3 ML SYRINGE IVFLUSH ×2 (07:56→15:20)
[2024-04-16] MEDS: Pregabalin 200 MG CAPSULE PO ×2 (08:27→20:59)
[2024-04-16] MEDS: Letrozole 2.5 MG TABLET PO (08:27)
--- NOTE | 2024-04-16 09:12 | MHC.CM.PN ---
IMM delivered. 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 Ambulates w/ cane, walker PRN. HCP on file and verified. PCP Adela Wasserman MD DP: PT luis pending. Patient reports she has used [facility] in the past and would be open to their services again, if recommended. Sister will transport home. CM will continue to follow.
[2024-04-16 11:25] LABS: Glucose, Whole Blood 134 mg/dL (60-115)
[2024-04-16] MEDS: Fluticasone/Umeclidinium/Vilanterol 200/62.5/25 BLST.W.DEV 1 PUFF INHALE (11:54)
[2024-04-16 15:28] VITALS: BP 135/65; PULSE 90; RESP 14; TEMP 37; O2SAT 96
--- NOTE | 2024-04-16 15:28 | HO.POSTANES ---
Post Anesthesia Evaluation Post Anesthesia Evaluation Date of Service: 04/15/24 Vital Signs: Vital Signs Temp Pulse Resp BP Pulse Ox O2 Del Method 04/16/24 07:45 97.1 F 78 14 155/88 H 98 Room Air 04/16/24 03:33 97.2 F 67 20 102/56 L 97 Room Air Anesthesia: General Mental Status: Awake Pain Control: Satisfactory Nausea/Vomiting: None Hydration: Adequate Anesthesia-Related Issues: No Anes. Related Issues
[2024-04-16 16:34] LABS: Glucose, Whole Blood 103 mg/dL (60-115)
[2024-04-16 20:00] VITALS: BP 115/64; PULSE 81; RESP 16; TEMP 37; O2SAT 97
[2024-04-16 20:09] LABS: Glucose, Whole Blood 113 mg/dL (60-115)
[2024-04-16] MEDS: traZODone HCL 100 MG TABLET PO (20:59)
[2024-04-16] MEDS: Lactated Ringers 1,000 ML 100 ML IVCONT (22:16)
[2024-04-17] MEDS: 0.9 % Sodium Chloride Flush 3 ML SYRINGE IVFLUSH
[2024-04-17 03:44] VITALS: BP 126/69; PULSE 84; RESP 18; TEMP 36.9; O2SAT 97
[2024-04-17] MEDS: HYDROmorphone HCl 0.5 MG/0.5 ML SYRINGE IVPUSH ×5 (03:54→23:45)
[2024-04-17] MEDS: Acetaminophen 1,000 MG/100 ML PIGGYBACK 400 MG IV ×4 (03:54→20:58)
[2024-04-17] MEDS: oxyCODONE HCl Immed Release 5 MG TABLET PO ×3 (05:50→21:24)
[2024-04-17 07:41] LABS: Glucose, Whole Blood 119 mg/dL (60-115)
[2024-04-17] MEDS: Fluticasone/Umeclidinium/Vilanterol 200/62.5/25 BLST.W.DEV 1 PUFF INHALE (07:43)
[2024-04-17 07:48] VITALS: PULSE 98; RESP 20; O2SAT 98
[2024-04-17 08:00] VITALS: BP 122/59; PULSE 84; RESP 16; TEMP 36.7; O2SAT 96
[2024-04-17] MEDS: Pregabalin 200 MG CAPSULE PO ×2 (08:55→20:57)
[2024-04-17] MEDS: Letrozole 2.5 MG TABLET PO (08:55)
[2024-04-17 11:15] LABS: Glucose, Whole Blood 140 mg/dL (60-115)
--- NOTE | 2024-04-17 14:56 | MHC.CM.PN ---
EMR REVIEWED. PT IS NOT MEDICALLY CLEARED BY SURGERY FOR DC. CM WILL CONTINUE TO FOLLOW FOR ANY CHANGE TO DC PLAN.
--- NOTE | 2024-04-17 15:02 | PM.PNGS ---
Subjective Subjective Date of Service: 04/17/24 Interval history: POD #2 s/p hand assisted laparoscopic sigmoid colectomy with colorectal anastomosis. She reports passing bowel movements and would like to try a regular diet. She still has abdominal incisional pain which is controlled with current pain medication. She was able to ambulate yesterday with physical therapy and over the night with the assistance of nurse's aide. Physical Exam Vital Signs: Vital Signs: Last Vital Signs Temp 98.1 F 04/17/24 08:00 Pulse 84 04/17/24 08:00 Resp 16 04/17/24 08:00 BP 122/59 L 04/17/24 08:00 Pulse Ox 96 04/17/24 08:00 O2 Del Method Room Air 04/17/24 08:00 O2 Flow Rate 2 04/15/24 11:41 BMI result Body Mass Index 21.3 Const: General: no acute distress Nutritional Appearance: thin Orientation/consciousness: patient oriented x3 Resp: Effort & Inspection: normal respiratory effort GI: Other: Abdominal incisions are clean, dry, and intact. Abdomen is softly distended. Bowel sounds are audible. Skin: Other: Warm, dry, no rash Neuro: General: patient oriented x3 Extrem: Other: No peripheral edema Objective Data Active Medications Albuterol Sulfate (Albuterol Sulfate (0.083%) 2.5 Mg/3 Ml Vial.Neb) 2.5 mg INHALE ONCE PRN PRN Reason: Shortness of Breath/Wheezing Albuterol Sulfate (Albuterol Sulfate 90 Mcg 8 Gm Inhaler) 2 puff INHALE Q4H PRN PRN Reason: Shortness Of Breath Or Wheezing Fluticasone/Umeclidinium/Vilanterol (Fluticasone/Umeclidinium/Vilanterol 200/62.5/25 Blst.W.Dev) 1 puff INHALE RDAILY [facility] Last Admin: 04/17/24 07:43 Dose: 1 puff Documented By: HAWA Glucose (Glucose Gel 15 Gm Gel..Gram.) 15 gm PO Q15M PRN; Protocol PRN Reason: per Hypoglycemia Standing Ord. Hydromorphone HCl (Hydromorphone Hcl 0.5 Mg/0.5 Ml Syringe) 0.5 mg IVPUSH Q3H PRN; Protocol PRN Reason: Pain, Severe (Pain Scale 7-10) Last Admin: 04/17/24 11:45 Dose: 0.5 mg Documented By: DAVID Acetaminophen (Ofirmev) 1,000 mg in 100 mls @ 400 mls/hr IV Q6H [facility]S [facility] 234 BEDS AT THE [facility] Last Infusion: 04/17/24 09:10 Dose: Infused Documented By: DAVID Dextrose (D10) 250 mls @ 750 mls/hr IV Q15M PRN; Protocol PRN Reason: per Hypoglycemia Standing Ord. Letrozole (Letrozole 2.5 Mg Tablet) 2.5 mg PO DAILY [facility] 234 BEDS AT THE [facility] Last Admin: 04/17/24 08:55 Dose: 2.5 mg Documented By: DAVID Ondansetron HCl (Ondansetron Hcl 4 Mg/2 Ml Vial) 4 mg IVPUSH QID PRN PRN Reason: Nausea Oxycodone HCl (Oxycodone Hcl Immed Release 5 Mg Tablet) 5 mg PO Q6H PRN PRN Reason: Pain, Moderate(Pain Scale 4-6) Last Admin: 04/17/24 05:50 Dose: 5 mg Documented By: ALEJANDRA Pregabalin (Pregabalin 200 Mg Capsule) 200 mg PO BID [facility]CLUDE 234 BEDS AT THE [facility] Last Admin: 04/17/24 08:55 Dose: 200 mg Documented By: DAVID Sodium Chloride (0.9 % Sodium Chloride Flush 3 Ml Syringe) 3 ml IVFLUSH QSHIFT [facility]S [facility]CLUDE 234 BEDS AT THE [facility] Last Admin: 04/17/24 07:32 Dose: Not Given Documented By: DAVID Non-Admin Reason: IV Running Trazodone HCl (Trazodone Hcl 100 Mg Tablet) 100 mg PO BEDTIME [facility]S [facility]CLUDE 234 BEDS AT [facility] Last Admin: 04/16/24 20:59 Dose: 100 mg Documented By: ALEJANDRA Labs 04/16/24 05:58 04/16/24 05:58 Labs: Laboratory Results - last 24 hr 04/16/24 04/16/24 04/17/24 16:21 19:28 07:23 POC Glucose 103 113 119 H 04/17/24 11:04 POC Glucose 140 H Procedures Date of Service Date of Service: 04/17/24 Progress Note: A&P Assessment and plan (1) S/P laparoscopic colectomy: Status: Acute (2) Diverticulitis large intestine: Status: Acute Plan 63-year-old female patient status post hand assisted laparoscopic sigmoid colectomy, pod 2. Patient has a return of bowel functions and is tolerating some solid food this morning. Her wounds remained clean and intact. She still requires intravenous pain medication. She was encouraged to switch to oral pain medication and was assured that this would last longer than the IV. She was also encouraged to back off the pain medication if possible as soon as possible. She expressed understanding agrees with the plan. Time Spent With Patient Time: Total time managing care of this patient today ____ minutes. Quality Stroke Does the patient have a stroke diagnosis?: No VTE Prior VTE?: No VTE Risk Level:: Surgical - moderate VTE Device Contraindication: N/A - Device Ordered VTE Drug Contraindication: N/A - Med Ordered
[2024-04-17] MEDS: Lactated Ringers 1,000 ML 80 ML IVCONT (15:25)
[2024-04-17 15:44] VITALS: BP 100/62; PULSE 75; RESP 14; TEMP 37; O2SAT 99
[2024-04-17 16:18] LABS: Glucose, Whole Blood 116 mg/dL (60-115)
[2024-04-17 19:38] VITALS: BP 97/56; PULSE 64; RESP 15; TEMP 36.2; O2SAT 94
[2024-04-17 19:50] LABS: Glucose, Whole Blood 119 mg/dL (60-115)
[2024-04-17] MEDS: traZODone HCL 100 MG TABLET PO (20:58)
[2024-04-18] MEDS: Lactated Ringers 1,000 ML 80 ML IVCONT (01:26)
[2024-04-18] MEDS: Acetaminophen 1,000 MG/100 ML PIGGYBACK 400 MG IV ×4 (03:10→20:48)
--- NOTE | 2024-04-18 03:58 | PC.NURSE ---
Pt sleeping, respirations even and unlabored, with no apparent distress. Call devi within reach.
[2024-04-18 04:00] VITALS: BP 97/53; PULSE 63; RESP 16; TEMP 36; O2SAT 98
[2024-04-18] MEDS: HYDROmorphone HCl 0.5 MG/0.5 ML SYRINGE IVPUSH ×3 (06:21→19:42)
[2024-04-18 07:42] VITALS: BP 129/69; PULSE 68; RESP 16; TEMP 36.4; O2SAT 97
[2024-04-18 07:46] LABS: Glucose, Whole Blood 112 mg/dL (60-115)
[2024-04-18] MEDS: Fluticasone/Umeclidinium/Vilanterol 200/62.5/25 BLST.W.DEV 1 PUFF INHALE (08:16)
[2024-04-18] MEDS: Pregabalin 200 MG CAPSULE PO ×2 (08:17→20:49)
[2024-04-18] MEDS: Letrozole 2.5 MG TABLET PO (08:17)
[2024-04-18] MEDS: oxyCODONE HCl Immed Release 5 MG TABLET PO ×2 (08:38→15:01)
[2024-04-18 11:20] LABS: Glucose, Whole Blood 163 mg/dL (60-115)
--- NOTE | 2024-04-18 12:19 | PM.PNGS ---
Subjective Subjective Date of Service: 04/18/24 Interval history: Patient is doing well but still complaining of some abdominal pain and cramping. She is passing gas and having loose stools. Tolerating some p.o. diet but feeling a little distended. Physical Exam Vital Signs: Vital Signs: Last Vital Signs Temp 97.6 F 04/18/24 07:42 Pulse 68 04/18/24 07:42 Resp 16 04/18/24 07:42 BP 129/69 04/18/24 07:42 Pulse Ox 97 04/18/24 07:42 O2 Del Method Room Air 04/18/24 07:42 O2 Flow Rate 2 04/15/24 11:41 BMI result Body Mass Index 21.3 Const: General: cooperative, healthy appearing, comfortable and no acute distress Resp: Effort & Inspection: normal respiratory effort Auscultation: clear to auscultation bilaterally Cardio: Rate: regular rate Rhythm: regular rhythm GI: Other: Abdomen is soft little distended good bowel sounds incision sites look good. Psych: Appearance: grossly normal Mental Status: mental status grossly normal Objective Data Active Medications Albuterol Sulfate (Albuterol Sulfate (0.083%) 2.5 Mg/3 Ml Vial.Neb) 2.5 mg INHALE ONCE PRN PRN Reason: Shortness of Breath/Wheezing Albuterol Sulfate (Albuterol Sulfate 90 Mcg 8 Gm Inhaler) 2 puff INHALE Q4H PRN PRN Reason: Shortness Of Breath Or Wheezing Fluticasone/Umeclidinium/Vilanterol (Fluticasone/Umeclidinium/Vilanterol 200/62.5/25 Blst.W.Dev) 1 puff INHALE RDAILY [facility] Last Admin: 04/18/24 08:16 Dose: 1 puff Documented By: LI Glucose (Glucose Gel 15 Gm Gel..Gram.) 15 gm PO Q15M PRN; Protocol PRN Reason: per Hypoglycemia Standing Ord. Hydromorphone HCl (Hydromorphone Hcl 0.5 Mg/0.5 Ml Syringe) 0.5 mg IVPUSH Q3H PRN; Protocol PRN Reason: Pain, Severe (Pain Scale 7-10) Last Admin: 04/18/24 06:21 Dose: 0.5 mg Documented By: ETHEL Acetaminophen ([facility]) 1,000 mg in 100 mls @ 400 mls/hr IV Q6H [facility] Last Infusion: 04/18/24 08:44 Dose: Infused Documented By: LI Dextrose (D10) 250 mls @ 750 mls/hr IV Q15M PRN; Protocol PRN Reason: per Hypoglycemia Standing Ord. Lactated Ringer's (Lr) 1,000 mls @ 80 mls/hr IVCONT .[id number] [facility] Last Infusion: 04/18/24 04:25 Dose: 80 mls/hr Documented By: ETHEL Letrozole (Letrozole 2.5 Mg Tablet) 2.5 mg PO DAILY [facility] Last Admin: 04/18/24 08:17 Dose: 2.5 mg Documented By: LI Ondansetron HCl (Ondansetron Hcl 4 Mg/2 Ml Vial) 4 mg IVPUSH QID PRN PRN Reason: Nausea Oxycodone HCl (Oxycodone Hcl Immed Release 5 Mg Tablet) 5 mg PO Q6H PRN PRN Reason: Pain, Moderate(Pain Scale 4-6) Last Admin: 04/18/24 08:38 Dose: 5 mg Documented By: LI Pregabalin (Pregabalin 200 Mg Capsule) 200 mg PO BID [facility] Last Admin: 04/18/24 08:17 Dose: 200 mg Documented By: LI Sodium Chloride (0.9 % Sodium Chloride Flush 3 Ml Syringe) 3 ml IVFLUSH QSHIFT [facility] Last Admin: 04/18/24 08:17 Dose: Not Given Documented By: LI Non-Admin Reason: IV Running Trazodone HCl (Trazodone Hcl 100 Mg Tablet) 100 mg PO BEDTIME [facility] Last Admin: 04/17/24 20:58 Dose: 100 mg Documented By: ETHEL Labs 04/16/24 05:58 04/16/24 05:58 Labs: Laboratory Results - last 24 hr 04/17/24 04/17/24 04/18/24 16:07 19:44 07:36 POC Glucose 116 H 119 H 112 04/18/24 11:09 POC Glucose 163 H Procedures Date of Service Date of Service: 04/18/24 Progress Note: A&P Assessment and plan (1) S/P laparoscopic colectomy: Status: Acute Assessment and Plan: Patient is doing well status post laparoscopic colectomy her pain is mainly due to probably gas pain. We talked about getting up and walking some more. Hep-Lock her IV p.o. pain meds and hopefully within next 24 hours she will be feeling better. Time Spent With Patient Time: Total time managing care of this patient today ____ minutes. Quality Stroke Does the patient have a stroke diagnosis?: No VTE Prior VTE?: No VTE Risk Level:: Surgical - moderate VTE Device Contraindication: N/A - Device Ordered VTE Drug Contraindication: N/A - Med Ordered
[2024-04-18] MEDS: 0.9 % Sodium Chloride Flush 3 ML SYRINGE IVFLUSH ×2 (15:03)
[2024-04-18 15:15] VITALS: BP 122/65; PULSE 68; RESP 18; TEMP 36.3; O2SAT 98
[2024-04-18] MEDS: Albuterol Sulfate 90 MCG 8 GM INHALER 2 PUFF INHALE (15:55)
[2024-04-18 16:06] LABS: Glucose, Whole Blood 101 mg/dL (60-115)
[2024-04-18 18:41] VITALS: BP 129/66; PULSE 74; RESP 18; TEMP 36.2; O2SAT 97
--- NOTE | 2024-04-18 19:20 | PC.NURSE ---
Addendum entered by Sussy Moss RN 04/18/24 21:43: #22 VANESSA: caused slight irritation after flushing post IV tylenol. Still patent and flushable. Second line placed #22 LFA. Plan to alternate IV lines, with med administration. Original Note: This RN assumed care at 1900, Pt AOx3, reporting constant RLQ 8/10 pain. 4 x abdominal dsg Dry and intact, BS x4 tender with palpation. Lung sounds clear, respirations even and unlabored. #22 VANESSA. PRN meds given per JAN. Pt ambulated once around unit. with standby assist Pt resting quietly in bed. Call devi within reach, no apparent distress noted.
[2024-04-18 20:04] LABS: Glucose, Whole Blood 119 mg/dL (60-115)
[2024-04-18] MEDS: traZODone HCL 100 MG TABLET PO (20:50)
[2024-04-19] MEDS: HYDROmorphone HCl 0.5 MG/0.5 ML SYRINGE IVPUSH ×5 (01:23→19:52)
[2024-04-19] MEDS: Acetaminophen 1,000 MG/100 ML PIGGYBACK 400 MG IV ×4 (02:45→21:14)
[2024-04-19] MEDS: oxyCODONE HCl Immed Release 5 MG TABLET PO ×2 (02:53→14:30)
[2024-04-19 03:11] VITALS: BP 130/80; PULSE 66; RESP 16; TEMP 36; O2SAT 96
[2024-04-19 07:39] LABS: Glucose, Whole Blood 118 mg/dL (60-115)
[2024-04-19 07:44] VITALS: BP 138/80; PULSE 72; RESP 14; TEMP 36; O2SAT 97
[2024-04-19] MEDS: Fluticasone/Umeclidinium/Vilanterol 200/62.5/25 BLST.W.DEV 1 PUFF INHALE (07:57)
[2024-04-19 07:59] VITALS: PULSE 71; RESP 16; O2SAT 97
[2024-04-19] MEDS: Letrozole 2.5 MG TABLET PO (08:15)
[2024-04-19] MEDS: 0.9 % Sodium Chloride Flush 3 ML SYRINGE IVFLUSH ×3 (08:16→21:15)
[2024-04-19] MEDS: Pregabalin 200 MG CAPSULE PO ×2 (08:16→21:15)
[2024-04-19 11:09] LABS: Glucose, Whole Blood 139 mg/dL (60-115)
[2024-04-19 14:39] LABS: MANUAL DIFF FLAG NO
[2024-04-19 14:41] LABS: Basophils Percent Auto 0.3 % (0-2); Eosinophils Absolute Auto 0.3 X10*3/uL (0.0-0.4); Eosinophils Percent Auto 4.1 % (0-4); Hematocrit 31.7 % (37.0-47.0); Hemoglobin 10.7 g/dl (12.0-16.0); Imm Gran Abs Auto 0.01 X10*3/uL (0.00-0.03); Imm Gran Pct Auto 0.1 % (0.0-0.4); Lymphocytes Absolute Auto 2.1 X10*3/uL (1.2-4.9); Mean Corpuscular HGB Conc 33.8 g/dl (31.0-35.0); Mean Corpuscular Hemoglobin 29.6 pg (27.0-33.0); Mean Corpuscular Volume 87.8 fL (80.0-98.0); Mean Platelet Volume 10.7 fL (9.4-12.3); Monocytes Absolute Auto 0.5 X10*3/uL (0.1-1.2); Monocytes Percent Auto 6.2 % (2-11); Neutrophils Absolute Auto 4.5 x10*3/uL (2.0-8.3); Neutrophils Percent Auto 61.3 % (45-73); Platelet Count 286 X10*3/uL (160-400); Red Blood Count 3.61 X10*6/uL (4.20-5.50); Red Cell Distribution Width 15.9 % (11.0-16.0); White Blood Count 7.4 X10*3/uL (4.8-10.8)
[2024-04-19 14:55] LABS: Anion Gap 11 (12-20); Blood Urea Nitrogen 4 mg/dL (9-16); Carbon Dioxide 24 mmol/L (22-29); Chloride 112 mmol/L (96-108); Creatinine Clr Calc Pharmacy 54.5; Estimated Glomerular Filt Rate > 60; Glucose Random 125 mg/dL (60-115); Potassium 3.7 mmol/L (3.3-5.1); Sodium 143 mmol/L (135-145)
[2024-04-19 15:08] VITALS: BP 142/67; PULSE 65; RESP 18; TEMP 36.8; O2SAT 97
[2024-04-19 16:03] LABS: Glucose, Whole Blood 104 mg/dL (60-115)
[2024-04-19] MEDS: iohexoL 350 MG/ML 100 ML INFUS..BTL 85 ML IV (17:58)
[2024-04-19] MEDS: Diatrizoate Meglumine, Sodium 30 ML SOLUTION PO (18:00)
[2024-04-19 18:48] VITALS: BP 145/56; PULSE 71; RESP 18; TEMP 36.8; O2SAT 98
--- NOTE | 2024-04-19 19:08 | PM.PNGS ---
Subjective Subjective Date of Service: 04/19/24 Interval history: pt complaining of pain in groin area or right side- says passing gas and stool but still with pain - crying. not nauseated Physical Exam Vital Signs: Vital Signs: Last Vital Signs Temp 98.2 F 04/19/24 18:48 Pulse 71 04/19/24 18:48 Resp 18 04/19/24 18:48 BP 145/56 H 04/19/24 18:48 Pulse Ox 98 04/19/24 18:48 O2 Del Method Room Air 04/19/24 18:48 O2 Flow Rate 2 04/15/24 11:41 BMI result Body Mass Index 21.3 Const: General: cooperative and acute distress Resp: Effort & Inspection: normal respiratory effort Auscultation: clear to auscultation bilaterally Cardio: Rate: regular rate Rhythm: regular rhythm GI: Other: less distended positive bowel sounds - nontender left side but very tender right abdomen into pelvic area - no masses or hernia noted right port site looks ok no masses Objective Data Active Medications Albuterol Sulfate (Albuterol Sulfate (0.083%) 2.5 Mg/3 Ml Vial.Neb) 2.5 mg INHALE ONCE PRN PRN Reason: Shortness of Breath/Wheezing Albuterol Sulfate (Albuterol Sulfate 90 Mcg 8 Gm Inhaler) 2 puff INHALE Q4H PRN PRN Reason: Shortness Of Breath Or Wheezing Last Admin: 04/18/24 15:55 Dose: 2 puff Documented By: LI Fluticasone/Umeclidinium/Vilanterol (Fluticasone/Umeclidinium/Vilanterol 200/62.5/25 Blst.W.Dev) 1 puff INHALE RDAILY [facility] Last Admin: 04/19/24 07:57 Dose: 1 puff Documented By: CALLIE Glucose (Glucose Gel 15 Gm Gel..Gram.) 15 gm PO Q15M PRN; Protocol PRN Reason: per Hypoglycemia Standing Ord. Hydromorphone HCl (Hydromorphone Hcl 0.5 Mg/0.5 Ml Syringe) 0.5 mg IVPUSH Q3H PRN; Protocol PRN Reason: Pain, Severe (Pain Scale 7-10) Last Admin: 04/19/24 16:37 Dose: 0.5 mg Documented By: LI Acetaminophen (Ofirmev) 1,000 mg in 100 mls @ 400 mls/hr IV Q6H [facility] Last Infusion: 04/19/24 15:27 Dose: Infused Documented By: LI Dextrose (D10) 250 mls @ 750 mls/hr IV Q15M PRN; Protocol PRN Reason: per Hypoglycemia Standing Ord. Letrozole (Letrozole 2.5 Mg Tablet) 2.5 mg PO DAILY [facility] Last Admin: 04/19/24 08:15 Dose: 2.5 mg Documented By: LI Ondansetron HCl (Ondansetron Hcl 4 Mg/2 Ml Vial) 4 mg IVPUSH QID PRN PRN Reason: Nausea Oxycodone HCl (Oxycodone Hcl Immed Release 5 Mg Tablet) 5 mg PO Q6H PRN PRN Reason: Pain, Moderate(Pain Scale 4-6) Last Admin: 04/19/24 14:30 Dose: 5 mg Documented By: LI Pregabalin (Pregabalin 200 Mg Capsule) 200 mg PO BID [facility] Last Admin: 04/19/24 08:16 Dose: 200 mg Documented By: LI Sodium Chloride (0.9 % Sodium Chloride Flush 3 Ml Syringe) 3 ml IVFLUSH QSHIFT [facility] Last Admin: 04/19/24 17:00 Dose: 3 ml Documented By: LI Trazodone HCl (Trazodone Hcl 100 Mg Tablet) 100 mg PO BEDTIME [facility] Last Admin: 04/18/24 20:50 Dose: 100 mg Documented By: ETHEL Labs 04/19/24 14:35 04/19/24 14:35 Labs: Laboratory Results - last 24 hr 04/18/24 04/19/24 04/19/24 19:47 07:30 11:01 MCV MCH MCHC RDW Plt Count MPV Immature Gran % (Auto) Neut % (Auto) Lymph % (Auto) [place] % (Auto) Eos % (Auto) Baso % (Auto) Lymph # (Auto) [place] # (Auto) Eos # (Auto) Baso # (Auto) Abs Immat Gran (auto) Absolute Neuts (auto) Absolute Nucleated RBC Nucleated RBC % (auto) Anion Gap Estim Creat Clear Calc Estimated GFR POC Glucose 119 H 118 H 139 H Random Glucose Calcium 04/19/24 04/19/24 14:35 15:40 MCV 87.8 MCH 29.6 MCHC 33.8 RDW 15.9 Plt Count 286 D MPV 10.7 Immature Gran % (Auto) 0.1 Neut % (Auto) 61.3 Lymph % (Auto) 28.0 [place] % (Auto) 6.2 Eos % (Auto) 4.1 H Baso % (Auto) 0.3 Lymph # (Auto) 2.1 [place] # (Auto) 0.5 Eos # (Auto) 0.3 Baso # (Auto) 0.0 Abs Immat Gran (auto) 0.01 Absolute Neuts (auto) 4.5 Absolute Nucleated RBC 0.000 Nucleated RBC % (auto) 0.0 Anion Gap 11 L Estim Creat Clear Calc 54.5 Estimated GFR > 60 POC Glucose 104 Random Glucose 125 H Calcium 9.0 D Procedures Date of Service Date of Service: 04/19/24 Progress Note: A&P Assessment and plan (1) S/P laparoscopic colectomy: Status: Acute Assessment and Plan: pt having increased pain today - labs were ok but due to tenderness in right side CT abdo pelvis done without anything but postop changes - no sig concern will cont woth po diet will try toradol and back off of the dilaudid ambulate reasses in am Time Spent With Patient Time: Total time managing care of this patient today ____ minutes. Quality Stroke Does the patient have a stroke diagnosis?: No VTE Prior VTE?: No VTE Risk Level:: Surgical - moderate VTE Device Contraindication: N/A - Device Ordered VTE Drug Contraindication: N/A - Med Ordered
[2024-04-19 20:11] LABS: Glucose, Whole Blood 117 mg/dL (60-115)
[2024-04-19] MEDS: traZODone HCL 100 MG TABLET PO (21:15)
[2024-04-19] MEDS: Ketorolac Tromethamine 15 MG/ML VIAL IVPUSH (22:05)
[2024-04-20] MEDS: Acetaminophen 1,000 MG/100 ML PIGGYBACK 400 MG IV (03:29)
--- NOTE | 2024-04-20 03:43 | PC.NURSE ---
Patient started on scheduled Toradol for better pain management. First dose given at 22:05 04/19. At 0340 04/20 patient woken up by this RN to administer scheduled Tylenol and noticed patient very sweaty which is not very common for her. Blood glucose was checked since patient is diabetic and was 128. After changing sheets and hospital gown patient stated feeling better. ? from Toradol. Next dose held per patients request. Oxycodone given for pain at this time.
[2024-04-20 03:51] VITALS: BP 127/64; PULSE 58; RESP 16; TEMP 36; O2SAT 97
[2024-04-20] MEDS: oxyCODONE HCl Immed Release 5 MG TABLET PO ×4 (04:02→21:52)
[2024-04-20 04:10] LABS: Glucose, Whole Blood 128 mg/dL (60-115)
[2024-04-20 07:02] VITALS: BP 127/88; PULSE 70; RESP 14; TEMP 36.2; O2SAT 98
[2024-04-20 07:12] LABS: Glucose, Whole Blood 115 mg/dL (60-115)
[2024-04-20] MEDS: Letrozole 2.5 MG TABLET PO (08:12)
[2024-04-20] MEDS: Pregabalin 200 MG CAPSULE PO ×2 (08:12→21:47)
[2024-04-20] MEDS: 0.9 % Sodium Chloride Flush 3 ML SYRINGE IVFLUSH ×3 (08:13→23:45)
[2024-04-20] MEDS: ondansetron HCL 4 MG/2 ML VIAL IVPUSH (08:25)
[2024-04-20] MEDS: HYDROmorphone HCl 0.5 MG/0.5 ML SYRINGE IVPUSH ×4 (08:25→22:18)
[2024-04-20] MEDS: Fluticasone/Umeclidinium/Vilanterol 200/62.5/25 BLST.W.DEV 1 PUFF INHALE (08:28)
[2024-04-20 08:30] VITALS: PULSE 70; RESP 18; O2SAT 99
--- NOTE | 2024-04-20 08:30 | PC.NURSE ---
Patient refuses sequentials,risks explained,encouraged ambulation,Dr. Rodriguez notified
--- NOTE | 2024-04-20 08:39 | P.PNGS_ITS ---
Subjective Subjective Date of Service: 04/20/24 Interval history: Patient feels improved today with decreased right groin pain. Continues to have loose bowel movements, tolerating regular diet without nausea or vomiting. She is ambulating daily. Physical Exam 2 Vital Signs: Vital Signs: Last Vital Signs Temp 97.1 F 04/20/24 07:02 Pulse 70 04/20/24 08:30 Resp 18 04/20/24 08:30 BP 127/88 04/20/24 07:02 Pulse Ox 98 04/20/24 07:02 O2 Del Method Room Air 04/20/24 07:02 O2 Flow Rate 2 04/15/24 11:41 BMI result Body Mass Index 21.3 Const: General: comfortable Nutritional Appearance: well nourished O rientation/consciousness: patient oriented x3 Resp: Effort & Inspection: normal respiratory effort, no audible wheezes, no cough and no respiratory distress GI: Other: Soft and nondistended, some ecchymosis in the lower abdomen. Incisions are clean and intact without erythema. Neuro: General: patient oriented x3 Extrem: Other: Arm edema secondary to IV Objective Data Active Medications Albuterol Sulfate (Albuterol Sulfate (0.083%) 2.5 Mg/3 Ml Vial.Neb) 2.5 mg INHALE ONCE PRN PRN Reason: Shortness of Breath/Wheezing Albuterol Sulfate (Albuterol Sulfate 90 Mcg 8 Gm Inhaler) 2 puff INHALE Q4H PRN PRN Reason: Shortness Of Breath Or Wheezing Last Admin: 04/18/24 15:55 Dose: 2 puff Documented By: LI Fluticasone/Umeclidinium/Vilanterol (Fluticasone/Umeclidinium/Vilanterol 200/62.5/25 Blst.W.Dev) 1 puff INHALE RDAILY [facility] Last Admin: 04/20/24 08:28 Dose: 1 puff Documented By: SHAWNA Glucose (Glucose Gel 15 Gm Gel..Gram.) 15 gm PO Q15M PRN; Protocol PRN Reason: per Hypoglycemia Standing Ord. Hydromorphone HCl (Hydromorphone Hcl 0.5 Mg/0.5 Ml Syringe) 0.5 mg IVPUSH Q3H PRN; Protocol PRN Reason: Pain, Severe (Pain Scale 7-10) Last Admin: 04/20/24 08:25 Dose: 0.5 mg Documented By: SALMA Dextrose (D10) 250 mls @ 750 mls/hr IV Q15M PRN; Protocol PRN Reason: per Hypoglycemia Standing Ord. Ketorolac Tromethamine (Ketorolac Tromethamine 15 Mg/Ml Vial) 15 mg IVPUSH Q6H [facility] Stop: 04/24/24 21:44 Last Admin: 04/20/24 08:13 Dose: Not Given Documented By: SALMA Non-Admin Reason: pt reports extreme sweating Letrozole (Letrozole 2.5 Mg Tablet) 2.5 mg PO DAILY [facility] Last Admin: 04/20/24 08:12 Dose: 2.5 mg Documented By: SALMA Ondansetron HCl (Ondansetron Hcl 4 Mg/2 Ml Vial) 4 mg IVPUSH QID PRN PRN Reason: Nausea Last Admin: 04/20/24 08:25 Dose: 4 mg Documented By: SALMA Oxycodone HCl (Oxycodone Hcl Immed Release 5 Mg Tablet) 5 mg PO Q6H PRN PRN Reason: Pain, Moderate(Pain Scale 4-6) Last Admin: 04/20/24 04:02 Dose: 5 mg Documented By: HUMBERTO Pregabalin (Pregabalin 200 Mg Capsule) 200 mg PO BID [facility] Last Admin: 04/20/24 08:12 Dose: 200 mg Documented By: SALMA Sodium Chloride (0.9 % Sodium Chloride Flush 3 Ml Syringe) 3 ml IVFLUSH QSHIFT ON [facility] Last Admin: 04/20/24 08:13 Dose: 3 ml Documented By: SALMA Trazodone HCl (Trazodone Hcl 100 Mg Tablet) 100 mg PO BEDTIME [facility] Last Admin: 04/19/24 21:15 Dose: 100 mg Documented By: HUMBERTO Labs 04/19/24 14:35 04/19/24 14:35 Labs: Laboratory Results - last 24 hr 04/19/24 04/19/24 04/19/24 11:01 14:35 15:40 MCV 87.8 MCH 29.6 MCHC 33.8 RDW 15.9 Plt Count 286 D MPV 10.7 Immature Gran % (Auto) 0.1 Neut % (Auto) 61.3 Lymph % (Auto) 28.0 [place] % (Auto) 6.2 Eos % (Auto) 4.1 H Baso % (Auto) 0.3 Lymph # (Auto) 2.1 [place] # (Auto) 0.5 Eos # (Auto) 0.3 Baso # (Auto) 0.0 Abs Immat Gran (auto) 0.01 Absolute Neuts (auto) 4.5 Absolute Nucleated RBC 0.000 Nucleated RBC % (auto) 0.0 Anion Gap 11 L Estim Creat Clear Calc 54.5 Estimated GFR > 60 POC Glucose 139 H 104 Random Glucose 125 H Calcium 9.0 D 04/19/24 04/20/24 04/20/24 19:59 03:57 07:05 MCV MCH MCHC RDW Plt Count MPV Immature Gran % (Auto) Neut % (Auto) Lymph % (Auto) [place] % (Auto) Eos % (Auto) Baso % (Auto) Lymph # (Auto) [place] # (Auto) Eos # (Auto) Baso # (Auto) Abs Immat Gran (auto) Absolute Neuts (auto) Absolute Nucleated RBC Nucleated RBC % (auto) Anion Gap Estim Creat Clear Calc Estimated GFR POC Glucose 117 H 128 H 115 Random Glucose Calcium Procedures Date of Service Date of Service: 04/20/24 Progress Note: A&P Assessment and plan (1) S/P laparoscopic colectomy: Status: Acute (2) Diverticulitis large intestine: Status: Acute Plan POD#5 status post hand assisted laparoscopic sigmoid colectomy with colorectal anastomosis. She reported some right groin pain yesterday which is improved today. Her abdomen is soft and nondistended. Incisions are clean without erythema or discharge. Patient continues with incisional pain but did find some improvement with Toradol. We will stop IV Tylenol. Encouraged avoiding IV pain meds. Continue ambulation. Time Spent With Patient Time: Total time managing care of this patient today ____ minutes. Quality Stroke Does the patient have a stroke diagnosis?: No VTE Prior VTE?: No VTE Risk Level:: Surgical - moderate VTE Device Contraindication: N/A - Device Ordered VTE Drug Contraindication: N/A - Med Ordered
[2024-04-20] MEDS: Acetaminophen 325 MG TABLET 650 MG PO (10:46)
[2024-04-20 11:08] LABS: Glucose, Whole Blood 112 mg/dL (60-115)
[2024-04-20] MEDS: Simethicone 80 MG TAB.CHEW PO ×2 (13:18→21:52)
[2024-04-20 15:18] VITALS: BP 132/63; PULSE 73; RESP 18; TEMP 36.3; O2SAT 97
--- NOTE | 2024-04-20 15:22 | MHC.CM.PN ---
EMR REVIEWED AND PER MD ROUNDS, PT IS NOT MEDICALLY CLEARED FOR DC. PT STILL WEANING OFF IV PAIN MEDS. CM WILL CONTINUE TO FOLLOW FOR ANY CHANGE TO DC PLAN/NEEDS.
[2024-04-20 16:02] LABS: Glucose, Whole Blood 118 mg/dL (60-115)
[2024-04-20 20:00] VITALS: BP 138/65; PULSE 70; RESP 18; TEMP 36.8; O2SAT 95
[2024-04-20 20:08] LABS: Glucose, Whole Blood 109 mg/dL (60-115)
--- NOTE | 2024-04-20 20:24 | PC.NURSE ---
Addendum entered by Sussy Moss RN 04/20/24 20:34: Dr. Edawrds responded via [employer] and was clarified that the only new things from yesterday post CT scan, was a small bump above midline incision. Stated that Dr. Rodriguez can be notified tomorrow Original Note: Pt reporting a small bump above midline incision, that was also reported to day time nurse, during assessment small bump palapble above incision. Incisions intact steri strip intact.. Dr. Moser notified, no new orders. Toradol has not been given all day, due to severe diaphoretic reaction, Dr. Moser made aware.
[2024-04-20] MEDS: traZODone HCL 100 MG TABLET PO (21:47)
--- NOTE | 2024-04-20 22:31 | PC.NURSE ---
Addendum entered by Manda Pickering RN 04/21/24 02:14: CT result reviewed by Dr Moser, stated it looks okay. Addendum entered by Manda Pickering RN 04/21/24 01:45: CT result is in, Dr Moser notified via [employer]. Addendum entered by Manda Pickering RN 04/21/24 00:44: CT obtained but no reading available yet. ER CT called to find out when report might be ready. They are to message radiologist pony ride operator doing readings. Patient is stable , sleeping at this time. Addendum entered by Manda Pickering RN 04/20/24 23:01: Dr Moser ok CT wo contrast, ER CT called to notify of STAT order, they are busy doing another case at this time will call when awailable. Patient states decrease in pain after dilaudid administration, voiding in bathroom. Original Note: patient is crying of pain right side abdomen and new small bump above midline incision. Nursing ground crew supervisor made aware and at bedside evaluating patient. Attempts to establish a better IV site US guided not successful per ICU. Nursing ground crew supervisor was able to insert 22 to left lower arm, patient received dilaudid for pain. Dr Moser notified again and Stat CT was ordered. will continue with care.
[2024-04-21] MEDS: HYDROmorphone HCl 0.5 MG/0.5 ML SYRINGE IVPUSH ×3 (01:34→07:32)
[2024-04-21 03:02] VITALS: BP 126/61; PULSE 93; RESP 16; TEMP 36.2; O2SAT 97
--- NOTE | 2024-04-21 04:05 | PC.NURSE ---
Pt reports having two (small/medium) lose stools. Pt ambulating around unit with walker and steady gate. Pt is calm and cooperative.
[2024-04-21] MEDS: Acetaminophen 325 MG TABLET 650 MG PO (04:19)
[2024-04-21] MEDS: Simethicone 80 MG TAB.CHEW PO ×2 (04:26→14:01)
--- NOTE | 2024-04-21 07:07 | PM.EVENT ---
Event Note Date of Service: 04/21/24 Event Note: nurse had called multiple times overnight due to a new tender mass on the area above the long incision and had requested to have a CT scan done CT therefore repeated - no new findings compared to last CT on April 19 - postop changes incl small amount of free air in pelvis no hernia, fluid collection along incision pt otherwise looks well stable VS no fever abd soft and benign pt assured currently on diet Time Spent With Patient Time: Total time managing care of this patient today ____ minutes.
[2024-04-21 07:27] VITALS: BP 130/61; PULSE 67; RESP 12; TEMP 36.6; O2SAT 97
[2024-04-21] MEDS: 0.9 % Sodium Chloride Flush 3 ML SYRINGE IVFLUSH ×3 (07:33→21:29)
[2024-04-21] MEDS: Pregabalin 200 MG CAPSULE PO ×2 (07:34→21:27)
[2024-04-21] MEDS: Letrozole 2.5 MG TABLET PO (07:34)
[2024-04-21 07:41] LABS: Glucose, Whole Blood 113 mg/dL (60-115)
[2024-04-21] MEDS: Fluticasone/Umeclidinium/Vilanterol 200/62.5/25 BLST.W.DEV 1 PUFF INHALE (07:46)
[2024-04-21 07:55] VITALS: PULSE 74; RESP 18; O2SAT 95
--- NOTE | 2024-04-21 07:57 | P.PNGS_ITS ---
Subjective Subjective Date of Service: 04/21/24 Interval history: reports incisional and right hip pain. Ambulates well in hallway. BMs small quantity now. Physical Exam 2 Vital Signs: Vital Signs: Last Vital Signs Temp 97.8 F 04/21/24 07:27 Pulse 74 04/21/24 07:55 Resp 18 04/21/24 07:55 BP 130/61 04/21/24 07:27 Pulse Ox 97 04/21/24 07:27 O2 Del Method Room Air 04/21/24 07:27 O2 Flow Rate 2 04/15/24 11:41 BMI result Body Mass Index 21.3 Const: General: comfortable Nutritional Appearance: well nourished O rientation/consciousness: patient oriented x3 Resp: Effort & Inspection: normal respiratory effort GI: Other: soft, minimal distension. Wounds clean and intact without redness or discharge. No tympany to percussion. Neuro: General: patient oriented x3 Extrem: Other: no edema Objective Data Active Medications Acetaminophen (Acetaminophen 325 Mg Tablet) 650 mg PO QID PRN PRN Reason: headache,fever>101,pain 1-4 Last Admin: 04/21/24 04:19 Dose: 650 mg Documented By: ETHEL Albuterol Sulfate (Albuterol Sulfate 90 Mcg 8 Gm Inhaler) 2 puff INHALE Q4H PRN PRN Reason: Shortness Of Breath Or Wheezing Last Admin: 04/18/24 15:55 Dose: 2 puff Documented By: LI Fluticasone/Umeclidinium/Vilanterol (Fluticasone/Umeclidinium/Vilanterol 200/62.5/25 Blst.W.Dev) 1 puff INHALE RDAILY [facility] Last Admin: 04/21/24 07:46 Dose: 1 puff Documented By: HAWA Glucose (Glucose Gel 15 Gm Gel..Gram.) 15 gm PO Q15M PRN; Protocol PRN Reason: per Hypoglycemia Standing Ord. Hydromorphone HCl (Hydromorphone Hcl 0.5 Mg/0.5 Ml Syringe) 0.5 mg IVPUSH Q3H PRN; Protocol PRN Reason: Pain, Severe (Pain Scale 7-10) Last Admin: 04/21/24 07:32 Dose: 0.5 mg Documented By: SALMA Dextrose (D10) 250 mls @ 750 mls/hr IV Q15M PRN; Protocol PRN Reason: per Hypoglycemia Standing Ord. Ketorolac Tromethamine (Ketorolac Tromethamine 15 Mg/Ml Vial) 15 mg IVPUSH Q6H [facility] Stop: 04/24/24 21:44 Last Admin: 04/21/24 07:34 Dose: Not Given Documented By: SALMA Non-Admin Reason: Patient Refused Letrozole (Letrozole 2.5 Mg Tablet) 2.5 mg PO DAILY [facility] Last Admin: 04/21/24 07:34 Dose: 2.5 mg Documented By: SALMA Ondansetron HCl (Ondansetron Hcl 4 Mg/2 Ml Vial) 4 mg IVPUSH QID PRN PRN Reason: Nausea Last Admin: 04/20/24 08:25 Dose: 4 mg Documented By: SALMA Oxycodone HCl (Oxycodone Hcl Immed Release 5 Mg Tablet) 5 mg PO Q6H PRN PRN Reason: Pain, Moderate(Pain Scale 4-6) Last Admin: 04/20/24 21:52 Dose: 5 mg Documented By: ETHEL Pregabalin (Pregabalin 200 Mg Capsule) 200 mg PO BID [facility] Last Admin: 04/21/24 07:34 Dose: 200 mg Documented By: SALMA Simethicone (Simethicone 80 Mg Tab.Chew) 80 mg PO QIDWMHS PRN PRN Reason: Gas Pain Last Admin: 04/21/24 04:26 Dose: 80 mg Documented By: ETHEL Sodium Chloride (0.9 % Sodium Chloride Flush 3 Ml Syringe) 3 ml IVFLUSH QSHIFT [facility] Last Admin: 04/21/24 07:33 Dose: 3 ml Documented By: SALMA Trazodone HCl (Trazodone Hcl 100 Mg Tablet) 100 mg PO BEDTIME [facility] Last Admin: 04/20/24 21:47 Dose: 100 mg Documented By: ETHEL Labs 04/19/24 14:35 04/19/24 14:35 Labs: Laboratory Results - last 24 hr 04/20/24 04/20/24 04/20/24 11:03 15:58 20:04 POC Glucose 112 118 H 109 04/21/24 07:25 POC Glucose 113 Procedures Date of Service Date of Service: 04/21/24 Progress Note: A&P Assessment and plan (1) S/P laparoscopic colectomy: Status: Acute (2) Diverticulitis large intestine: Status: Acute Plan Overall patient is doing well with complaints of incisional pain and right hip pain. Wounds are clean. Also reports feeling anxious at night. Plan: D/C IV pain meds, increased Oxycodone to 10 mg for pain 7-10. Increase tylenol to extra-strength prn pain 1-3 Ativan for anxiety Miralax for increased stool burden in right colon Anticipate discharge to home tomorrow. Time Spent With Patient Time: Total time managing care of this patient today ____ minutes. Quality Stroke Does the patient have a stroke diagnosis?: No VTE Prior VTE?: No VTE Risk Level:: Surgical - moderate VTE Device Contraindication: N/A - Device Ordered VTE Drug Contraindication: N/A - Med Ordered
[2024-04-21] MEDS: polyethylene glycoL 3350 17 GM POWD.PACK PO (09:41)
[2024-04-21] MEDS: oxyCODONE HCl Immed Release 5 MG TABLET 10 MG PO ×4 (09:46→22:46)
[2024-04-21] MEDS: LORazepam 0.5 MG TABLET PO ×2 (10:28→18:28)
[2024-04-21] MEDS: Acetaminophen 325 MG TABLET 975 MG PO (10:33)
[2024-04-21 11:29] LABS: Glucose, Whole Blood 115 mg/dL (60-115)
--- NOTE | 2024-04-21 14:05 | PC.NURSE ---
patient is asking for Dilaudid for pain,Roxicodone not effective,Dr. Rodriguez notified
[2024-04-21 15:51] VITALS: BP 136/60; PULSE 63; RESP 18; TEMP 36.1; O2SAT 97
[2024-04-21 16:49] LABS: Glucose, Whole Blood 97 mg/dL (60-115)
--- NOTE | 2024-04-21 18:06 | PC.NURSE ---
Patint reported passing small amt of flatus
[2024-04-21 20:00] VITALS: BP 104/50; PULSE 70; RESP 20; TEMP 36.3; O2SAT 96
[2024-04-21 20:29] LABS: Glucose, Whole Blood 175 mg/dL (60-115)
[2024-04-21] MEDS: traZODone HCL 100 MG TABLET PO (21:27)
[2024-04-22 03:36] VITALS: BP 108/60; PULSE 73; RESP 18; TEMP 36.9; O2SAT 96
[2024-04-22] MEDS: LORazepam 0.5 MG TABLET PO (03:48)
[2024-04-22] MEDS: oxyCODONE HCl Immed Release 5 MG TABLET 10 MG PO ×2 (03:49→07:45)
[2024-04-22 07:25] VITALS: BP 135/85; PULSE 82; RESP 12; TEMP 36.3; O2SAT 97
[2024-04-22 07:32] LABS: Glucose, Whole Blood 118 mg/dL (60-115)
[2024-04-22] MEDS: Fluticasone/Umeclidinium/Vilanterol 200/62.5/25 BLST.W.DEV 1 PUFF INHALE (07:40)
[2024-04-22 07:42] VITALS: PULSE 94; RESP 20; O2SAT 96
[2024-04-22] MEDS: Pregabalin 200 MG CAPSULE PO (07:44)
[2024-04-22] MEDS: Letrozole 2.5 MG TABLET PO (07:44)
[2024-04-22] MEDS: Simethicone 80 MG TAB.CHEW PO (07:44)
[2024-04-22] MEDS: polyethylene glycoL 3350 17 GM POWD.PACK PO (07:45)
[2024-04-22] MEDS: Acetaminophen 325 MG TABLET 975 MG PO (07:45)
[2024-04-22] MEDS: 0.9 % Sodium Chloride Flush 3 ML SYRINGE IVFLUSH (07:45)
--- NOTE | 2024-04-22 10:49 | MHC.CM.PN ---
DP: PT HAS BEEN MEDICALLY CLEARED FOR DC HOME, NO SERVICES. PT HAS OWN [facility].
--- NOTE | 2024-04-23 08:42 | P.DS_ITS ---
DS: Providers Provider Date of Service: 04/23/24 Date of admission: 04/15/24 10:28 Date of discharge: 04/22/24 Primary care physician: Adela Wasserman MD Admitting clinician: Hayden Rodriguez Discharging clinician: Hayden Rodriguez DS: Diagnosis Discharge Diagnosis (1) S/P laparoscopic colectomy: Status: Acute (2) Diverticulitis large intestine: Status: Acute DS: Summary Hospital Course Hospital Course: 63-year-old female patient well known to me with a previous history of breast cancer left breast presenting with complaints of abdominal pain in the left lower quadrant. She was evaluated in the emergency department on 03/25/2024. Patient was found to have tenderness in the left lower quadrant. Laboratories revealed a normal WBC. CT abdomen and pelvis revealed mild, uncomplicated sigmoid diverticulitis without abscess or perforation. She was subsequently placed on Augmentin for 10 days. She returns today reporting continued abdominal pain mainly in the left lower quadrant. This has persisted for the past 1.5 years without significant improvement. She reports multiple episodes of increased abdominal pain similar to the current episode. On examination she is afebrile however is tender on palpation of left lower quadrant abdomen without rebound, guarding or rigidity. Patient was felt to have persistently symptomatic sigmoid diverticular disease. The options of continued observation verses elective sigmoid colectomy were discussed in detail and the patient elected to proceed with surgery. She was subsequently taken to the OR on 04/15/2024 for a hand assisted laparoscopic sigmoid colectomy with a colorectal anastomosis. She tolerated the procedure well but did have mainly incisional pain and pain in the right lower quadrant. She was started on clear liquids and advanced to a regular diet within 48 hours of surgery. She did report several small bowel movements which were liquidy at 1st but then became more solid. Major issue postoperatively was her abdominal pain which required intravenous pain medication. A repeat CT was performed on 2 occasions which revealed normal postoperative change following laparoscopic colectomy but no abscess or evidence of intestinal leak. Physical therapy was consulted to assist with ambulation. Over the next several days she was ambulating independently. By 04/22/2024 she was tolerating regular diet and having several small bowel movements daily. She was subsequently discharged to home in stable condition. She was instructed to avoid lifting greater than 10 lb for the next month. She was given a prescription for oxycodone p.r.n. for pain. She will follow-up on 04/28/2024 for wound check and staple removal. She is welcome to call sooner for any new complaints including fever, chills, nausea or vomiting. Status at Discharge Functional status at discharge: uses cane/walker Time Attestation Discharge Coordination Time (in mins): 25 Quality: Safe Use of Opioids Does Pt have an Active Cancer Diagnosis on the Problem List?: No Quality: Stroke Does the patient have a stroke diagnosis?: No Physical Exam Vital Signs: Vital Signs: Last Vital Signs Temp 97.3 F 04/22/24 07:25 Pulse 94 04/22/24 07:42 Resp 20 04/22/24 07:42 BP 135/85 04/22/24 07:25 Pulse Ox 97 04/22/24 07:25 O2 Del Method Room Air 04/22/24 07:25 O2 Flow Rate 2 04/15/24 11:41 BMI result Body Mass Index 21.3 Const: General: comfortable Nutritional Appearance: well nourished Orientation/consciousness: patient oriented x3 Resp: Effort & Inspection: normal respiratory effort GI: Other: soft, minimal distension. Wounds clean and intact without redness or discharge. No tympany to percussion. Neuro: General: patient oriented x3 Extrem: Other: no edema DS: Data Data Completed and Pending Completed studies during hospitalization [Text1]: Pending at discharge 04/15/24 09:35 Surgical [PTH] Routine Procedures Excision of Sigmoid Colon, Via Natural or Artificial Opening Endoscopic, Diagnostic (12/11/23) Discharge Plan Discharge Anticipated Discharge Date/Time: 04/22/24 11:57 Patient Disposition: Home, Self-Care Discharge Diagnosis: Diverticulitis s/p sigmoid colectomy Referrals: Hayden Rodriguez MD [Physician] - 1 Week Adela Gipson MD [Primary Care Provider] - 1 Week Discharge Medications: New oxycodone 5 mg tablet 5 mg PO Q6H PRN (Reason: pain (scale score 7-10)) Qty: 30 0RF Rx Instructions: Partial Fill upon patient request. simethicone 125 mg capsule 125 mg PO DAILY PRN (Reason: gas pain) Qty: 30 0RF Continued (DME) lancets [FreeStyle Lancets] 28 gauge misc See Rx Instructions .Route Qty: 100 3RF Rx Instructions: Use 1 lancet once a day (DME) walker Misc See Rx Instructions .Route Qty: 1 0RF Rx Instructions: with seat Trulicity 1.5 mg/0.5 mL pen injector 1.5 mg subcut TH@0900 Qty: 6 3RF (DME) Shower Chair Misc See Rx Instructions .Route Qty: 1 0RF Rx Instructions: As directed (DME) clamp on tub safety rail See Rx Instructions .Route .MEDSUPPLY Qty: 1 0RF Rx Instructions: As directed (DME) ez jacquard twine polisher operator bed assist support See Rx Instructions .Route .MEDSUPPLY Qty: 1 0RF Rx Instructions: As directed famotidine 20 mg tablet 20 mg PO BEDTIME 90 Days Qty: 90 1RF trazodone 100 mg tablet 100 mg PO BEDTIME 90 Days Qty: 90 0RF pregabalin [Lyrica] 200 mg capsule 200 mg PO BID Qty: 60 1RF aspirin 81 mg tablet,delayed release (DR/EC) 81 mg PO DAILY 90 Days Qty: 90 1RF Hold Instructions: resume 12/14 letrozole 2.5 mg Tablet 2.5 mg PO DAILY Qty: 90 3RF ondansetron 4 mg tablet,disintegrating 4 mg PO Q8H PRN (Reason: nausea and vomiting) Qty: 20 0RF mesalamine 1.2 gram Tablet,Delayed Release (Dr/Ec) 3.6 g PO DAILY 30 Days Qty: 90 0RF (DME) pen needle, diabetic [Comfort EZ Pen [place]] 31 gauge x 5/16 needle See Rx Instructions .ROUTE .MEDSUPPLY Qty: 200 11RF Rx Instructions: Use 1 pen needle 6 times a day (DME) FreeStyle Lite Strips Strip MISCELLANEOUS DAILY Qty: 100 1RF Rx Instructions: Use 1 test strip three times a day albuterol sulfate 90 mcg/actuation HFA aerosol inhaler 2 inh inhalation Q4H PRN (Reason: Shortness Of Breath Or Wheezing) Linzess 145 mcg capsule 145 mcg PO QAM 30 Days Qty: 30 3RF methotrexate sodium 2.5 mg tablet 15 mg PO QWEEK Qty: 72 1RF folic acid 1 mg tablet 1 mg PO DAILY Qty: 90 1RF Trelegy Ellipta 200-62.5-25 mcg blister with device 1 ea inhalation DAILY Discharge Orders: Discharge Order (Routine); Ordered 04/22/24 Ordered By: Hayden Rodriguez Diet: Advance to usual diet Activity on Discharge: No heavy lifting Stand Alone Forms: Patient Portal Discharge page Print Language: Algerian Activity Restrictions/Additional Instructions: No lifting greater than 10 lb for 1 month No driving for 2 weeks Regular diet as tolerated Follow-up in office 1 week Care Plan Goals: Return to normal activity and diet Health Concerns: Abdominal pain left lower quadrant, diverticulitis Plan of Treatment: Hand assisted laparoscopic sigmoid colectomy Assessment: Sigmoid diverticulitis Discharge Date/Time: 04/22/24 12:08
== END 2024-04-22 12:08 | disposition home or self-care (01) | DRG 331 ==
LOC: HO.SSSA 10:34 → HO.S3 11:27
PROVIDERS: Anesthesiology; Surgery; Admitting Provider Surgery; PCP Internal Medicine; Visit Provider Surgery
PROC: 0DTE0ZZ Resection of Large Intestine, Open Approach (ICD-10-PCS; principal; 2024-04-15 07:30)
DX: K57.30 Diverticulosis of large intestine without perforation or abscess without bleeding (principal); F31.9 Bipolar disorder, unspecified; E11.9 Type 2 diabetes mellitus without complications; K66.0 Peritoneal adhesions (postprocedural) (postinfection); M79.7 Fibromyalgia; I25.118 Atherosclerotic heart disease of native coronary artery with other forms of angina pectoris; F17.210 Nicotine dependence, cigarettes, uncomplicated; Z71.6 Tobacco abuse counseling; Z85.3 Personal history of malignant neoplasm of breast; Z79.82 Long term (current) use of aspirin; Z79.51 Long term (current) use of inhaled steroids; Z79.631 Long term (current) use of antimetabolite agent; Z79.899 Other long term (current) drug therapy
CPT/HCPCS: 36415; 74176; 74177; 80048; 80307; 82565; 82947; 85025; 86850; 86900; 86901; 88307; 97161; C1758; J0131; J1170; J1885; J1920; J2250; J2405; J2704; J2795; J3010; J7120; Q9967

== ENCOUNTER → 2024-04-15 10:28 | Outpatient (BNV) | payer OTHER, SELFPAY ==
[2024-03-04 09:33] VITALS: BP 96/60; BP 96/66; BMI 22.5
== END ==
PROVIDERS: Admitting Provider Surgery; PCP Internal Medicine; Visit Provider Surgery
DX: Z90.49 Acquired absence of other specified parts of digestive tract (principal); K57.32 Diverticulitis of large intestine without perforation or abscess without bleeding
CPT/HCPCS: 44204; 99024; 99499

== ENCOUNTER 2024-04-28 08:27 | Outpatient (AMB) | payer OTHER, SELFPAY ==
[2024-03-04 09:33] VITALS: BP 96/60; BP 96/66; BMI 22.5
--- NOTE | 2024-04-28 08:34 | A.OFFVIS_ITS ---
Vital Signs 04/28/24 08:42 Weight 99 lb 6 oz BP 125/70 Blood Pressure Location Rt brachial Position Sitting Pulse 77 Intake Visit Reasons: S/P laparoscopic sigmoid colectomy Intake Note: This patient presents for a post-op assessment status post laparoscopic sigmoid colectomy. Patient c/o; reports no complaints. Ldr Nurse Required: No Accompanied by: Other Relationship Allergies methylprednisolone Allergy (Severe, Verified 04/28/24 08:41) Rash from Solu-Medrol shellfish derived Allergy (Intermediate, Verified 04/28/24 08:41) Hives etanercept [From Enbrel] Adverse Reaction (Severe, Verified 04/28/24 08:41) Facial Swelling metformin Adverse Reaction (Severe, Verified 04/28/24 08:41) Diarrhea metronidazole [From FLAGYL] Adverse Reaction (Severe, Verified 04/28/24 08:41) Diarrhea prednisone Adverse Reaction (Intermediate, Verified 04/28/24 08:41) hallucinations, more than 20 mg doses Medication List - Last Reconciled 04/28/24 by Hayden Rodriguez MD albuterol sulfate 90 mcg/actuation 2 inhalations inhalation Q4H PRN aspirin 81 mg PO DAILY 90 days blood sugar diagnostic (FreeStyle Lite Strips) Use 1 test strip three times a day [clamp on tub safety rail As directed] dulaglutide (Trulicity) 1.5 mg (0.5 mL) subcut TH@0900 [ez commercial pilot bed assist support As directed] famotidine 20 mg PO BEDTIME 90 days rdzabriygxq-zlnhzfwav-pkinvoxf 200-62.5-25 mcg (Trelegy Ellipta) 1 ea inhalation DAILY folic acid 1 mg PO DAILY lancets (FreeStyle Lancets) Use 1 lancet once a day letrozole 2.5 mg PO DAILY linaclotide (Linzess) 145 mcg PO QAM 30 days mesalamine 3.6 grams (3 x 1.2 gram) PO DAILY 30 days methotrexate sodium 15 mg (6 x 2.5 mg) PO QWEEK ondansetron 4 mg PO Q8H PRN oxycodone 5 mg PO Q6H PRN pen needle, diabetic (Comfort EZ Pen [place]) Use 1 pen needle 6 times a day pregabalin (Lyrica) 200 mg PO BID Shower Chair As directed simethicone 125 mg PO DAILY PRN trazodone 100 mg PO BEDTIME 90 days walker with seat HPI Comments Details: 63-year-old female patient status post hand assisted laparoscopic sigmoid colectomy for diverticulitis. She reports continued constipation with episodes of increased abdominal pain. Yesterday however she had a large liquid bowel movement. She denies nausea or vomiting and has been eating fairly well. [facility] Medical History half-way (current) use 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 Acute respiratory distress Tendonitis of ankle or foot Cough Stable angina Anxiety CAD (coronary artery disease) HLD (hyperlipidemia) HTN (hypertension) COPD exacerbation Hyperkalemia Atherosclerotic cardiovascular disease Hospital discharge follow-up Colitis GERD (gastroesophageal reflux disease) CVA (cerebral vascular accident) (~2018) Breast pain, right Rash Bloody diarrhea PAD (peripheral artery disease) Hyperlipidemia LDL goal <100 COPD (chronic obstructive pulmonary disease) Infiltrating ductal carcinoma of left breast, stage 2 Insomnia Dyslipidemia Bipolar 1 disorder, depressed Cough Restrictive airway disease Hypothyroid IDDM (insulin dependent diabetes mellitus) Vitamin D deficiency Osteoporosis Breast cancer Hyperparathyroidism Thyroid nodule T2DM (type 2 diabetes mellitus) Depression Fibromyalgia Seropositive rheumatoid arthritis Reactive airways dysfunction syndrome Allergic rhinitis Irritable bowel Anxiety Bronchial asthma Diabetes type 2, uncontrolled Surgical History S/P laparoscopic colectomy Hx of sigmoidoscopy History of bronchoscopy Hx of endoscopy H/O cardiac catheterization History of lumpectomy of left breast History of pubovaginal sling History of esophagogastroduodenoscopy (EGD) History of tubal ligation History of colonoscopy History of bunionectomy of both great toes H/O: hysterectomy Family History Mother Diabetes HTN (hypertension) Uterus cancer Malignant tumor of head Breast cancer Father Diabetes HTN (hypertension) CVD (cardiovascular disease) Heart problem Maternal Aunt Breast cancer Brother Myocardial infarction S/P CABG x 4 Family/Other FH: mental illness Family/Other Lung cancer Other Mental health disorder Social History Household Members: Family Household Members Other:: sister Housing: House Are you a primary day care home mother to a significant other at home: No Do you presently have visiting nurse or other home services: No Unable to assess alcohol history related to: Unknown Alcohol intake: never Comment: Low fall Patient Tobacco Use Status: Current everyday Tobacco user Tobacco use type: Cigarette Cigarette Packs Per Day: 0.5 Cigarettes Per Day: 3 Years Smoked: 48 e-Cigarette/Vaping Use: Never Used Second Hand Smoke Exposure: No Substance Use Type: Marijuana Advance Directives Date on File: 12/22/21 service: No Current occupational status: disabled Current occupation: rt handed Cognitive needs: No Hearing needs: No Vision needs: Yes Physical Exam Vital Signs: Last Vital Signs Pulse 77 04/28/24 08:42 BP 125/70 04/28/24 08:42 Const General: no acute distress Nutritional Appearance: well nourished Orientation/consciousness: patient oriented x3 Limitations: no limitations Resp Effort & Inspection: normal respiratory effort GI Other: Abdominal incisions are clean, dry, and intact without redness or discharge. No hernia noted. Palpation (GI): Soft to palpation and Tenderness to palpation present (GI) (Around incision) Percussion: Yes normal to percussion Auscultation: Hyperactive bowel sounds present Rectal Exam - Female: deferred Skin General skin exam: no rashes or lesions noted Neuro General: patient oriented x3 Quality Reporting (2019) Adult ([facility] ) Smoking risk assessment performed?: Yes Patient Tobacco Use Status: Current everyday Tobacco user Assessment & Plan Assessment & Plan (1) S/P laparoscopic colectomy: Code(s): Z90.49 - Acquired absence of other specified parts of digestive tract Category: Surgical (2) Diverticulitis large intestine: Code(s): K57.32 - Diverticulitis of large intestine without perforation or abscess without bleeding Category: Medical Plan Patient returns 1 week following discharge from the hospital. Her abdomen is soft and nondistended with some mild tenderness in the lower abdomen. Her bowels are still slow and may benefit from MiraLax. She reports that she has MiraLax at home will take 1 dose daily. If this does not improve over the next 2 days she should call the office for further instructions. I will refill her pain medication although she was warned to slowly wean down as this will also cause severe constipation. She expressed understanding and agrees with the plan. I have asked her to return approximately 2 weeks. Medications: Refilled simethicone 125 mg PO DAILY PRN 30 caps 0RF gas pain oxycodone Partial Fill upon patient request. 5 mg PO Q6H PRN 20 tabs 0RF pain (scale score 7-10) Coding Level of Care Code Global (77392) Diagnoses S/P laparoscopic colectomy Z90.49 Diverticulitis large intestine K57.32
[2024-04-28 08:42] VITALS: BP 125/70; PULSE 77
== END 2024-04-28 08:52 | disposition home or self-care (01) ==
PROVIDERS: PCP Internal Medicine; Visit Provider Surgery
DX: Z90.49 Acquired absence of other specified parts of digestive tract (principal); K57.32 Diverticulitis of large intestine without perforation or abscess without bleeding
CPT/HCPCS: 99024

== ENCOUNTER → 2024-04-28 08:27 | Outpatient (BNVA) | payer OTHER, SELFPAY ==
[2024-03-04 09:33] VITALS: BP 96/60; BP 96/66; BMI 22.5
== END ==
PROVIDERS: PCP Internal Medicine; Visit Provider Surgery
DX: K57.32 Diverticulitis of large intestine without perforation or abscess without bleeding (principal); Z90.49 Acquired absence of other specified parts of digestive tract
CPT/HCPCS: 99212

== ENCOUNTER 2024-05-12 09:01 | Outpatient (AMB) | payer OTHER, SELFPAY ==
[2024-03-04 09:33] VITALS: BP 96/60; BP 96/66; BMI 22.5
--- NOTE | 2024-05-12 09:08 | MHC.OFFVIS ---
Vital Signs 05/12/24 09:13 Weight 95 lb 6 oz Intake Visit Reasons: 2wk S/P laparoscopic sigmoid colectomy Intake Note: Patient is seen in office for 2 weeks follow up visit, post laparoscopic sigmoid colectomy. Worried loosing too much weight. Pt c/o: pain on abdomen. Oxycodone as needed. Still experincing constipation. Tried miralax but got nausea and stomach pain so stopped taking it. 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 Accompanied by: Self / Same As Patient Allergies methylprednisolone Allergy (Severe, Verified 05/12/24 09:12) Rash from Solu-Medrol shellfish derived Allergy (Intermediate, Verified 05/12/24 09:12) Hives etanercept [From Enbrel] Adverse Reaction (Severe, Verified 05/12/24 09:12) Facial Swelling metformin Adverse Reaction (Severe, Verified 05/12/24 09:12) Diarrhea metronidazole [From FLAGYL] Adverse Reaction (Severe, Verified 05/12/24 09:12) Diarrhea prednisone Adverse Reaction (Intermediate, Verified 05/12/24 09:12) hallucinations, more than 20 mg doses Medication List - Last Reconciled 05/12/24 by Hayden Rodriguez MD albuterol sulfate 90 mcg/actuation 2 inhalations inhalation Q4H PRN aspirin 81 mg PO DAILY 90 days bisacodyl (Dulcolax (bisacodyl)) 5 mg PO BEDTIME 1 week blood sugar diagnostic (FreeStyle Lite Strips) Use 1 test strip three times a day [clamp on tub safety rail As directed] dulaglutide (Trulicity) 1.5 mg (0.5 mL) subcut TH@0900 [ez child daycare worker bed assist support As directed] famotidine 20 mg PO BEDTIME 90 days luyriwnwcwj-ivatzfutz-xmlvnasi 200-62.5-25 mcg (Trelegy Ellipta) 1 ea inhalation DAILY folic acid 1 mg PO DAILY lancets (FreeStyle Lancets) Use 1 lancet once a day letrozole 2.5 mg PO DAILY linaclotide (Linzess) 145 mcg PO QAM 30 days mesalamine 3.6 grams (3 x 1.2 gram) PO DAILY 30 days methotrexate sodium 15 mg (6 x 2.5 mg) PO QWEEK ondansetron 4 mg PO Q8H PRN oxycodone 5 mg PO Q6H PRN pen needle, diabetic (Comfort EZ Pen [place]) Use 1 pen needle 6 times a day pregabalin (Lyrica) 200 mg PO BID Shower Chair As directed simethicone 125 mg PO DAILY PRN trazodone 100 mg PO BEDTIME 90 days walker with seat HPI Comments Details: 63-year-old female returning following hand assisted laparoscopic sigmoid colectomy performed on 04/15/2024 (4 weeks ago). She reports continued constipation with abdominal discomfort in the lower abdomen. She reports passing small streaks of stool and was unable to tolerate the MiraLax. She denies nausea or vomiting. 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 Acute respiratory distress Tendonitis of ankle or foot Cough Stable angina Anxiety CAD (coronary artery disease) HLD (hyperlipidemia) HTN (hypertension) COPD exacerbation Hyperkalemia Atherosclerotic cardiovascular disease Hospital discharge follow-up Colitis GERD (gastroesophageal reflux disease) CVA (cerebral vascular accident) (~2018) Breast pain, right Rash Bloody diarrhea PAD (peripheral artery disease) Hyperlipidemia LDL goal <100 COPD (chronic obstructive pulmonary disease) Infiltrating ductal carcinoma of left breast, stage 2 Insomnia Dyslipidemia Bipolar 1 disorder, depressed Cough Restrictive airway disease Hypothyroid IDDM (insulin dependent diabetes mellitus) Vitamin D deficiency Osteoporosis Breast cancer Hyperparathyroidism Thyroid nodule T2DM (type 2 diabetes mellitus) Depression Fibromyalgia Seropositive rheumatoid arthritis Reactive airways dysfunction syndrome Allergic rhinitis Irritable bowel Anxiety Bronchial asthma Diabetes type 2, uncontrolled Surgical History (Updated 05/11/24 @ 10:19 by KENNY Galloway) S/P laparoscopic colectomy (04/15/24) Hx of sigmoidoscopy History of bronchoscopy Hx of endoscopy H/O cardiac catheterization History of lumpectomy of left breast History of pubovaginal sling History of esophagogastroduodenoscopy (EGD) History of tubal ligation History of colonoscopy History of bunionectomy of both great toes H/O: hysterectomy Family History Mother Diabetes HTN (hypertension) Uterus cancer Malignant tumor of head Breast cancer Father Diabetes HTN (hypertension) CVD (cardiovascular disease) Heart problem Maternal Aunt Breast cancer Brother Myocardial infarction S/P CABG x 4 Family/Other FH: mental illness Family/Other Lung cancer Other Mental health disorder Social History Household Members: Family Household Members Other:: sister Housing: House Are you a primary care technician to a significant other at home: No Do you presently have visiting nurse or other home services: No Unable to assess alcohol history related to: Unknown Alcohol intake: never Comment: Low fall Patient Tobacco Use Status: Current everyday Tobacco user Tobacco use type: Cigarette Cigarette Packs Per Day: 0.5 Cigarettes Per Day: 3 Years Smoked: 48 e-Cigarette/Vaping Use: Never Used Second Hand Smoke Exposure: No Substance Use Type: Marijuana Advance Directives Date on File: 12/22/21 service: No Current occupational status: disabled Current occupation: rt handed Cognitive needs: No Hearing needs: No Vision needs: Yes Physical Exam Const General: no acute distress Nutritional Appearance: well nourished Orientation/consciousness: patient oriented x3 Resp Effort & Inspection: normal respiratory effort GI Other: Soft and nondistended. Some discomfort in the lower abdomen. Lower midline incision is clean, dry, and intact without redness or discharge. Steri-Strips were removed today. No palpable hernia. No tympany to percussion. Normal bowel sounds. Skin Other: Warm and dry, no rashes Neuro General: patient oriented x3 Quality Reporting (2020) Adult ([facility] [address]/09/69) Smoking risk assessment performed?: Yes Patient Tobacco Use Status: Current everyday Tobacco user Assessment & Plan Assessment & Plan (1) Constipation: Code(s): K59.00 - Constipation, unspecified Category: Medical Qualifiers: Constipation type: unspecified constipation type Qualified Code(s): K59.00 - Constipation, unspecified Plan 63-year-old female patient status post hand assisted laparoscopic sigmoid colectomy now with constipation. Her abdomen is soft and nondistended with some discomfort in the lower abdomen. No tympany to percussion. She was unable to tolerate the MiraLax therefore I recommended a trial of Dulcolax 1 p.o. q.h.s. p.r.n. constipation. She should also stop the narcotic. She expressed understanding and agrees with the plan. She will return in 2 weeks. Medications: New bisacodyl (Dulcolax (bisacodyl)) 5 mg PO BEDTIME 14 tabs 1RF 1 week K59.00 - Constipation, unspecified Coding Level of Care Code Global (23164) Diagnoses Constipation K59.00 Constipation type: unspecified constipation type
== END 2024-05-12 09:28 | disposition home or self-care (01) ==
PROVIDERS: PCP Internal Medicine; Visit Provider Surgery
DX: K59.00 Constipation, unspecified (principal)
CPT/HCPCS: 99024

== ENCOUNTER → 2024-05-12 09:01 | Outpatient (BNVA) | payer OTHER, SELFPAY ==
[2024-03-04 09:33] VITALS: BP 96/60; BP 96/66; BMI 22.5
== END ==
PROVIDERS: PCP Internal Medicine; Visit Provider Surgery
DX: K59.00 Constipation, unspecified (principal); Z90.49 Acquired absence of other specified parts of digestive tract; Z79.891 Long term (current) use of opiate analgesic
CPT/HCPCS: 99212

== ENCOUNTER 2024-06-03 14:02 | Outpatient (AMB) | payer OTHER, SELFPAY ==
[2024-03-04 09:33] VITALS: BP 96/60; BP 96/66; BMI 22.5
--- NOTE | 2024-06-03 14:13 | A.OFFVIS_ITS ---
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 Accompanied by: Self / Same As Patient Allergies methylprednisolone Allergy (Severe, Verified 05/18/24 09:53) Rash from Solu-Medrol shellfish derived Allergy (Intermediate, Verified 05/18/24 09:53) Hives etanercept [From Enbrel] Adverse Reaction (Severe, Verified 05/18/24 09:53) Facial Swelling metformin Adverse Reaction (Severe, Verified 05/18/24 09:53) Diarrhea metronidazole [From FLAGYL] Adverse Reaction (Severe, Verified 05/18/24 09:53) Diarrhea prednisone Adverse Reaction (Intermediate, Verified 05/18/24 09:53) hallucinations, more than 20 mg doses Medication List - Last Reconciled 06/03/24 by Joseph Salmon MD albuterol sulfate 90 mcg/actuation 2 inhalations inhalation Q4H PRN aspirin 81 mg PO DAILY 90 days bisacodyl (Dulcolax (bisacodyl)) 5 mg PO BEDTIME 1 week blood sugar diagnostic (FreeStyle Lite Strips) Use 1 test strip three times a day [clamp on tub safety rail As directed] dulaglutide (Trulicity) 1.5 mg (0.5 mL) subcut TH@0900 [ez manager call center bed assist support As directed] famotidine 20 mg PO BEDTIME 90 days qckfylgugzj-mggimfxoe-qbdlkgot 200-62.5-25 mcg (Trelegy Ellipta) 1 ea inhalation DAILY folic acid 1 mg PO DAILY lancets (FreeStyle Lancets) Use 1 lancet once a day letrozole 2.5 mg PO DAILY linaclotide (Linzess) 145 mcg PO QAM 30 days mesalamine 3.6 grams (3 x 1.2 gram) PO DAILY 30 days methotrexate sodium 15 mg (6 x 2.5 mg) PO QWEEK ondansetron 4 mg PO Q8H PRN pen needle, diabetic (Comfort EZ Pen [place]) Use 1 pen needle 6 times a day pregabalin (Lyrica) 200 mg PO BID Shower Chair As directed simethicone 125 mg PO DAILY PRN trazodone 100 mg PO BEDTIME 90 days walker with seat HPI Comments Details: 63-year-old female who has known history of coronary disease with previous PCI to left circumflex artery in December 2021, hypertension, hyperlipidemia, type 2 diabetes, COPD and fibromyalgia. She is returning for follow-up. She was seen last time with chest discomfort. There was some dyspnea on exertion also. She underwent stress echocardiogram which she was able to exercise to 7 metabolic equivalents without any EKG changes or wall motion abnormalities. 11/2022: Unfortunately had influenza in October and is recovering from that. Still having significant shortness of breath and continues to have mild wheezes. She just finished her prednisone taper yesterday. She is having upper abdominal pain. Denying any chest discomfort on follow-up. No peripheral edema. No obvious signs of heart failure. 06/10/23: She returns for follow-up. She is saying she has been experiencing significant shortness of breath and has been using the inhaler and nebulizers quite frequently. She also had some chest pain and went to emergency department and was ruled out. She has stress testing recently which was normal. She is saying that depending on whether her breathing changes. If it is humid and hot outside she gets really out of breath. She is still smoking 2 cigarettes per day. Overall from cardiovascular point of view she has stable angina and mostly has shortness of breath due to COPD. 09/23/23: She returns for follow-up. She underwent stress testing where she had hypotensive response to exercise. She was taken for cardiac catheterization which revealed stable disease with no significant LAD or RCA stenosis. Her previous circumflex stents were patent. She returns for follow-up and continues to smoke. She continues to have some sharp non anginal chest pains. She is following with pulmonology for COPD. She was on Wellbutrin which was stopped because she had history of seizures. We discussed about starting Chantix and she is agreeable. 01/27/2024: She returns for follow-up. She could not tolerate Chantix. She is still trying and is currently on 1 cigarette per day. She has Crohn's disease and has significant GI issues and unable to eat and drink well. She has been noticed to be tachycardic and and is saying that she is unable to eat and drink well. She will discuss this with GI. She also has left ankle pain and some burning sensation on the left calf. She also has a bandlike burning sensation in the thoracic region radiating to the front. No rashes noted by her. She has questions that are her symptoms due to amyloidosis as she has Googled her symptoms. She was reassured. 06/03/24: She is here for follow-up. She has restarted smoking unfortunately. Blood pressure control is good. Getting some reproducible left-sided chest pains off and on. She is asking whether she can have a lipid panel done. 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 Acute respiratory distress Tendonitis of ankle or foot Cough Stable angina Anxiety CAD (coronary artery disease) HLD (hyperlipidemia) HTN (hypertension) COPD exacerbation Hyperkalemia Atherosclerotic cardiovascular disease Hospital discharge follow-up Colitis GERD (gastroesophageal reflux disease) CVA (cerebral vascular accident) (~2018) Breast pain, right Rash Bloody diarrhea PAD (peripheral artery disease) Hyperlipidemia LDL goal <100 COPD (chronic obstructive pulmonary disease) Infiltrating ductal carcinoma of left breast, stage 2 Insomnia Dyslipidemia Bipolar 1 disorder, depressed Cough Restrictive airway disease Hypothyroid IDDM (insulin dependent diabetes mellitus) Vitamin D deficiency Osteoporosis Breast cancer Hyperparathyroidism Thyroid nodule T2DM (type 2 diabetes mellitus) Depression Fibromyalgia Seropositive rheumatoid arthritis Reactive airways dysfunction syndrome Allergic rhinitis Irritable bowel Anxiety Bronchial asthma Diabetes type 2, uncontrolled Surgical History S/P laparoscopic colectomy (04/15/24) Hx of sigmoidoscopy History of bronchoscopy Hx of endoscopy H/O cardiac catheterization History of lumpectomy of left breast History of pubovaginal sling History of esophagogastroduodenoscopy (EGD) History of tubal ligation History of colonoscopy History of bunionectomy of both great toes H/O: hysterectomy Family History Mother Diabetes HTN (hypertension) Uterus cancer Malignant tumor of head Breast cancer Father Diabetes HTN (hypertension) CVD (cardiovascular disease) Heart problem Maternal Aunt Breast cancer Brother Myocardial infarction S/P CABG x 4 Family/Other FH: mental illness Family/Other Lung cancer Other Mental health disorder Social History Household Members: Family Household Members Other:: sister Housing: House Are you a primary tree care foreman to a significant other at home: No Do you presently have visiting nurse or other home services: No Unable to assess alcohol history related to: Unknown Alcohol intake: never Comment: Low fall Patient Tobacco Use Status: Current everyday Tobacco user Tobacco use type: Cigarette Cigarette Packs Per Day: 0.5 Cigarettes Per Day: 3 Years Smoked: 48 e-Cigarette/Vaping Use: Never Used Second Hand Smoke Exposure: No Substance Use Type: Marijuana Advance Directives Date on File: 12/22/21 service: No Current occupational status: disabled Current occupation: rt handed Cognitive needs: No Hearing needs: No Vision needs: Yes Review of Systems Const Denies chills, Denies fatigue, Denies fever(s), Denies frequent falls, Denies weakness, Denies weight gain and Denies weight loss ENT Denies dizziness Card Denies chest pain, Denies leg edema, Denies lightheadedness, Denies palpitations, Denies dyspnea and Denies dyspnea on exertion Resp Denies cough, Denies dyspnea and Denies dyspnea on exertion GI Denies hematochezia Musc Denies abnormal gait, Denies muscle weakness, Denies numbness, Denies radiating pain into limb and Denies tingling Neuro Denies abnormal gait, Denies dizziness, Denies frequent falls, Denies numbness, Denies tingling and Denies weakness Endo Denies fatigue and Denies palpitations Physical Exam Vital Signs: Last Vital Signs Pulse 85 06/03/24 14:14 BP 120/60 06/03/24 14:14 BMI result Body Mass Index 19.9 GENERAL APPEARANCE: in no acute distress, pleasant. NECK: no carotid bruit, no jugular venous distention. SKIN: no suspicious lesions, warm and dry. HEART: no murmurs, regular rate and rhythm. LUNGS: Lungs clear to auscultation. ABDOMEN: soft. EXTREMITIES: no edema. PERIPHERAL PULSES: equal. NEUROLOGIC: No gross deficits, AAO X 3 Quality Reporting (2019) Adult ([facility] 138/2//69) Smoking risk assessment performed?: Yes Patient Tobacco Use Status: Current everyday Tobacco user Assessment & Plan Assessment & Plan (1) Essential hypertension: Code(s): I10 - Essential (primary) hypertension Category: Medical (2) Dyslipidemia: Code(s): E78.5 - Hyperlipidemia, unspecified Category: Medical Plan Pleasant 63 year female who is here for follow-up. She has reproducible left-sided chest pain which is noncardiac pain. I have reassured her about this. Manual blood pressure check is 140/70 in both arms. Adding lisinopril 5 mg daily. We will arrange a fasting lipid panel for her. She has known coronary disease and peripheral vascular disease and target LDL is less than 70. Started smoking again and is again thinking about quitting. Follow-up in few months. Thank you for allowing me to participate in the care of your patient. Please feel free to contact me if you have any questions. Orders: Orders Lipid Panel Today I73.9 - Peripheral vascular disease, unspecified Medications: New lisinopril 5 mg PO DAILY 60 tabs 4RF I10 - Essential (primary) hypertension Coding Level of Care Code Est Pt Level 4 (33649) Diagnoses Essential hypertension I10 Dyslipidemia E78.5
[2024-06-03 14:14] VITALS: BP 120/60; PULSE 85; BMI 19.9
== END 2024-06-03 14:45 | disposition home or self-care (01) ==
PROVIDERS: PCP Internal Medicine; Visit Provider Internal Medicine Cardiovascular Disease
DX: I10 Essential (primary) hypertension (principal); E78.5 Hyperlipidemia, unspecified
CPT/HCPCS: 99214

== ENCOUNTER → 2024-06-03 14:02 | Outpatient (BNVA) | payer OTHER, SELFPAY ==
[2024-03-04 09:33] VITALS: BP 96/60; BP 96/66; BMI 22.5
== END ==
PROVIDERS: PCP Internal Medicine; Visit Provider Internal Medicine Cardiovascular Disease
DX: I25.10 Atherosclerotic heart disease of native coronary artery without angina pectoris (principal); I10 Essential (primary) hypertension; E78.5 Hyperlipidemia, unspecified; I73.9 Peripheral vascular disease, unspecified; F17.210 Nicotine dependence, cigarettes, uncomplicated
CPT/HCPCS: 99212

== ENCOUNTER 2024-06-04 07:47 | Outpatient (AMB) | payer OTHER, SELFPAY ==
[2024-03-04 09:33] VITALS: BP 96/60; BP 96/66; BMI 22.5
--- NOTE | 2024-06-04 07:50 | MHC.OFFVIS ---
Vital Signs 06/04/24 08:01 Height 4 ft 10 in Weight 95 lb BMI 19.9 BP 121/66 Blood Pressure Location Lt brachial Position Sitting Pulse 96 Intake Visit Reasons: 4 month follow up Intake Note: Patient follow up for chronic constipation Patient cc: weight loss, denies other any GI issues Disability Rater Required: No Accompanied by: Self / Same As Patient Allergies methylprednisolone Allergy (Severe, Verified 06/04/24 07:56) Rash from Solu-Medrol shellfish derived Allergy (Intermediate, Verified 06/04/24 07:56) Hives etanercept [From Enbrel] Adverse Reaction (Severe, Verified 06/04/24 07:56) Facial Swelling metformin Adverse Reaction (Severe, Verified 06/04/24 07:56) Diarrhea metronidazole [From FLAGYL] Adverse Reaction (Severe, Verified 06/04/24 07:56) Diarrhea prednisone Adverse Reaction (Intermediate, Verified 06/04/24 07:56) hallucinations, more than 20 mg doses Medication List - Last Reconciled 06/04/24 by Ruth Roman MD albuterol sulfate 90 mcg/actuation 2 inhalations inhalation Q4H PRN aspirin 81 mg PO DAILY 90 days blood sugar diagnostic (FreeStyle Lite Strips) Use 1 test strip three times a day [clamp on tub safety rail As directed] dulaglutide (Trulicity) 1.5 mg (0.5 mL) subcut TH@0900 [ez clinical trial educator bed assist support As directed] famotidine 20 mg PO BEDTIME 90 days [id number] 200-62.5-25 mcg (Trelegy Ellipta) 1 ea inhalation DAILY folic acid 1 mg PO DAILY lancets (FreeStyle Lancets) Use 1 lancet once a day letrozole 2.5 mg PO DAILY lisinopril 5 mg PO DAILY mesalamine 3.6 grams (3 x 1.2 gram) PO DAILY 30 days methotrexate sodium 15 mg (6 x 2.5 mg) PO QWEEK ondansetron 4 mg PO Q8H PRN pen needle, diabetic (Comfort EZ Pen [place]) Use 1 pen needle 6 times a day pregabalin (Lyrica) 200 mg PO BID Shower Chair As directed simethicone 125 mg PO DAILY PRN trazodone 100 mg PO BEDTIME 90 days walker with seat HPI HPI 4 month follow up: Details: GI CLINIC VISIT FOR THIS 63-YEAR-OLD FEMALE FOR FU OF GERD AND DYSPHAGIA PT IS KNOWN TO ME FROM PAST GI VISITS FOR COLITIS SEEN ON CT SCAN AND FOR POSITIVE HEP A AB (IG M) 04/15/24 Pt had Hand assisted laparoscopic sigmoid colectomy with colorectal anastomosis by Dr Rodriguez HAD BRONCHOSCOPY ON 08/16? , FOUND TO HAVE GENERALIZED INFLAMMATION.? AND ENDOBRONCHIAL LESION IN THE RIGHT LOWER LOBE WAS SUSPECTED. BIOPSY AND CYTOLOGY IS CONSISTENT WITH MILD INFLAMMATORY CHANGES, NO METAPLASIA NEOPLASTIC CELLS. IMAGING STUDIES:? 10/15/23 GASTRIC EMPTYING STUDY SHOWED: 1 hour 64% (normal 37%-90%) 2 hours 50% (normal 30%-60%) 3 hours 33% 4 hours 13% (normal 0%-10%) NM/NM gastric emptying study IMPRESSION: Abnormal grade 1 delayed 4 hour gastric emptying study. US WITH DUPLEX: Elevated velocity in the proximal superior mesenteric artery is nonspecific. By velocity criteria, this is consistent with hemodynamically significant stenosis. However, the distal waveforms are not indicative of significant upstream disease and there is no significant stenosis seen on CT from 02/01/2023. 10/2022 BARIUM SWALLOW SHOWED:Following oral administration of thick, thin barium and barium-coatedturkey in upright view, there is normal propagation of bolus from the oral cavity through the pharynx, esophagus into stomach without obstruction, narrowing or stricture. There is mild prominence of cricoesophageal sphincter indenting the upper esophagus. There is mild ventral spondylosis at the C5-C6 and C6-C7 disc levels with minimal indentation on the posterior cervical esophageal wall. However, there is no obstruction. On oral administration of barium tablet, there is transient holdup in the mid esophagus and slightly longer in the distal esophagus. 02/21/22 ABD US SHOWED: 1.? Increased hepatic echogenicity suggesting hepatic steatosis. 2.? Nonobstructive calculus in the right renal lower pole measuring 3 mm. 02/[address] SCAN SHOWED:A cause for the patient's diffuse abdominal pain has not been found.Incidental note made of: 1.? Hepatic steatosis. 2.? Small stable adrenal nodule, unchanged over many years 3.? Status post hysterectomy. 08/[address] SCAN SHOWED:Mild bowel wall thickening of the sigmoid colon which could be due to mild colitis. There is no surrounding pericolonic edema however. There is no bowel obstruction. ENDOSCOPIC STUDIES: 12/12/23 FLEX SIG SHOWED: Flexible sigmoidoscopy Findings: Friable appearing mucosa with patchy erythema in the left colon without ulcerations - random biopsies were obtained. cw resolving colitis No polyps were detected. Moderate diverticulosis seen in the left colon No blood seen in the left colon during sigmoidoscopy Plan: Above findings were reviewed with the patient. BIOPSIES SHOWED: Colon, left, biopsy: Colonic mucosa with lamina propria hemorrhage, partial surface epithelial loss, and scattered neutrophils consistent with active colitis (see comment). Comment: The differential includes infectious, early ischemia, drugs, diverticular disease, and early Crohn's. There is no evidence of chronic colitis, granulomas or dysplasia 05/2023 CAPSULE ENDOSCOPY SHOWED: Findings: Lower esophagus looked normal, stomach with granular mucosa and patchy erythema consistent with chronic gastritis small bowel entered at 2 hr 36 min min. Mucosa well visualized and appeared normal, no masses, lesions or ulcers seen. cecum entered at 4 hr 44 min and colonic mucosa looked normal Conclusion: chronic gastritis, other santiago neg small bowel study 06/15/22 EGD SHOWED:ESOPHAGUS: Tortuous esophagus with increased tertiary contractions without stricture or ring.?GE junction at 36 cms. No esophagitis or Austin's.STOMACH: Moderate diffuse gastric erythema - no ulcers were seen. Biopsies were obtained from gastric antrum and body. DUODENUM: Normal - biopsied to check for celiac sprue Plan:? Further evaluation with a Duplex US to rule out small bowel ischemia Rand of Dicyclomine prn while awaiting further workup. BIOPSIES SHOWED: A.? Small bowel, biopsy:? Small bowel mucosa with preserved villi and no specific change; no evidence of celiac disease. B.? Gastric antrum, biopsy:? Chronic Helicobacter gastritis with minimal activity and focal intestinal metaplasia; negative for dysplasia.? C.? Gastric body, biopsy:? Chronic Helicobacter gastritis with minimal activity; negative for intestinal metaplasia and dysplasia. 03/24/21 COLONOSCOPY SHOWED: No polyps were detected.Random biopsies were obtained from the right and left colon Moderate to severe diverticulosis seen in the entire colonOf note pt denies additional episodes of fecal incontinence. Plan:? Patient has an appointment on 04/20/21 in the GI Clinic with Ruth Roman M.D. Repeat Colonoscopy in 10 years if biopsies are normal. A handout on diverticulosis was were given in the discharge area BIOPSIES SHOWED: A.? Colon, right, biopsy:? Colonic mucosa within normal limits. B.? Colon, left, biopsy:? Colonic mucosa within normal limits. COMMENT: Diagnostic features of microscopic colitis are not seen. 08/2019:? Colonoscopy Findings:Edema, erythema with friable appearing mucosa and scattered ulcerations from 10to 30 cms - random biopsies obtained. Colon inflammation can be due to ischemiccolitis or stercoral ulcers related to constipation and irritation of the colon from hard stools. No polyps were detected Moderate to severe diverticulosis seen in the left colon. Plan: Await pathology results. Regular diet today. Start Miralax once daily for constipation. Continue IV antibiotics x 24 hours and then switch to PO antibiotics in the am for another 3 days. Patient to be scheduled for a FU appointment in the GI Clinic with Ruth Roman M.D. in 1-2 weeks. Above findings were reviewed with the patient. BIOPSIES SHOWED: Colon, left, biopsies: Colonic mucosa with focal superficial epithelial sloughing, hemorrhage and hyalinization possibly representing early ischemic colitis;? negative for dysplasia/malignancy. TODAY'S VISIT: Pt states abdominal pain has resolved. Continues to have constipation - pt states its better Has a BM once a day with hard stools - planning to start taking Senna for constipation Unable to regain the wt she lost. Has been eating though not a lot. Taking Boost twice a day. PAST VISITS: Patient follow up from ED due bloody diarrhea. Patient cc: abdominal pain, nauseas, diarrhea, swallowing problems with sticky food and her saliva. I am in pain with nausea and diarrhea. Stomach really hurts Taking mesalamine 3 tablets daily Noted diarrhea since last night - 2 BMs last night and one this am. Had hard stools prior to that. Prescribed Trulance and was not covered by her insurance. Has a BM once a week when she is constipated. Started on MTX 15 mg once a week for RA by her Tapping Machine Operator [employer] I havent been feeling good since I left the hospital Generalized body aches, diarrhea and constipation. Has constipation for a week and then diarrhea for 2 days. Taking Amitiza daily for constipation. Seen by Wet End Supervisor and was told she had stage 3 kidney disease Patient cc: abdominal pain and bloating, between diarrhea and constipation and some swallowing problems on and off. Continues to have nausea, bloating, gas and poor appetite Notes early satiety and denies vomiting. Hx of long standing DM and advised to schedule a GES Can go days without a BM - has a BM every 4-5 days. Stool is soft and mushy and hard to pass. Lately every time she coughs, she feels pressure and has to go to the bathroom and passes a small piece of stool. Takes Amitiza daily and colace prn Seen at [facility] ER on 07/24/23 with abd pain and rectal bleeding CT scan was done and pt informed she had diverticulitis and treated with PO antibiotics (amox) for a week. Seen again on 08/10 at [facility] and had repeat CT scan which showed colitis and kidney stones Prescribed amoxicillin x 10 days and oxycodone and has not passed the kidney stone yet. Lab results reviewed - IBD serology suggestive of Crohn's disease Pt seen at [facility] ED on 05/16/23 with chest pain and dubois was negative. Pt is on sulfasalazine for RA which is on hold to see if nausea gets better. 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 Unable to take biologics for RA due to COPD. Tried Humira and had to be stopped due to facial swelling. Tried Embril and was stopped due to worsening COPD. She was told by her Tapping Machine Operator [employer] that she is unable to use biologics I have been feeling horrible Has dizziness and nausea x past 3 weeks. Went to bed Saturday night and noted pain in the pit of the stomach. Had chills, felt hot and cold and had sweating and generalized itching [place] better yesterday and had diarrhea. Feels a little better today. Has been taking Marijuana once a day for nausea for the past 2 weeks and it helps the nausea. Hospitalized at [facility] from 01/23 to 01/26/23 with an episode of ischemic colitis and evaluated by Flex Sig Pt completed course of antibiotics prescribed at discharge. Pt complains of a nausea, abdominal pain, sour stomach and diarrhea with black stools for the past 3 days. Having 4 pudding like stools a day. Abd pain comes and goes. Pt complains of sweating and denies fevers. Pt complains of weakness and dizziness. Denies hx of PUD, aspirin or NSAID use. Took peptobismol 1 tablet last Saturday which did not help the pain. Takes Ondansetron for nausea which has not been helpful. Wt loss from 140 in Dec, 2021 to 115 lbs since she is eating less. Hospitalized with NSTEMI in Dec, 2021 and had 2 stents. Taking aspirin and Brilinta twice a day Had an MRI on the brain and changes noted on the right and left side Waiting to see a Neurologist. Has COPD and asthma. 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 Acute respiratory distress Tendonitis of ankle or foot Cough Stable angina Anxiety CAD (coronary artery disease) HLD (hyperlipidemia) HTN (hypertension) COPD exacerbation Hyperkalemia Atherosclerotic cardiovascular disease Hospital discharge follow-up Colitis GERD (gastroesophageal reflux disease) CVA (cerebral vascular accident) (~2017) Breast pain, right Rash Bloody diarrhea PAD (peripheral artery disease) Hyperlipidemia LDL goal <100 COPD (chronic obstructive pulmonary disease) Infiltrating ductal carcinoma of left breast, stage 2 Insomnia Dyslipidemia Bipolar 1 disorder, depressed Cough Restrictive airway disease Hypothyroid IDDM (insulin dependent diabetes mellitus) Vitamin D deficiency Osteoporosis Breast cancer Hyperparathyroidism Thyroid nodule T2DM (type 2 diabetes mellitus) Depression Fibromyalgia Seropositive rheumatoid arthritis Reactive airways dysfunction syndrome Allergic rhinitis Irritable bowel Anxiety Bronchial asthma Diabetes type 2, uncontrolled Surgical History S/P laparoscopic colectomy (04/15/24) Hx of sigmoidoscopy History of bronchoscopy Hx of endoscopy H/O cardiac catheterization History of lumpectomy of left breast History of pubovaginal sling History of esophagogastroduodenoscopy (EGD) History of tubal ligation History of colonoscopy History of bunionectomy of both great toes H/O: hysterectomy Family History Mother Diabetes HTN (hypertension) Uterus cancer Malignant tumor of head Breast cancer Father Diabetes HTN (hypertension) CVD (cardiovascular disease) Heart problem Maternal Aunt Breast cancer Brother Myocardial infarction S/P CABG x 4 Family/Other FH: mental illness Family/Other Lung cancer Other Mental health disorder Social History Household Members: Family Household Members Other:: sister Housing: House Are you a primary health care aide to a significant other at home: No Do you presently have visiting nurse or other home services: No Unable to assess alcohol history related to: Unknown Alcohol intake: never Comment: Low fall Patient Tobacco Use Status: Current everyday Tobacco user Tobacco use type: Cigarette Cigarette Packs Per Day: 0.5 Cigarettes Per Day: 3 Years Smoked: 48 e-Cigarette/Vaping Use: Never Used Second Hand Smoke Exposure: No Substance Use Type: Marijuana Advance Directives Date on File: 12/22/21 service: No Current occupational status: disabled Current occupation: rt handed Cognitive needs: No Hearing needs: No Vision needs: Yes Review of Systems Const All systems reviewed & are unremarkable except as noted in HPI and below Physical Exam Vital Signs: Last Vital Signs Pulse 96 06/04/24 08:01 BP 121/66 06/04/24 08:01 BMI result Body Mass Index 19.9 GENERAL APPEARANCE: in no acute distress, pleasant. NECK: no carotid bruit, no jugular venous distention. SKIN: no suspicious lesions, warm and dry. HEART: no murmurs, regular rate and rhythm. LUNGS: Lungs clear to auscultation. ABDOMEN: soft. EXTREMITIES: no edema. PERIPHERAL PULSES: equal. NEUROLOGIC: No gross deficits, AAO X 3 Quality Reporting (2019) Adult ([facility] 138/[birth year]) Smoking risk assessment performed?: Yes Patient Tobacco Use Status: Current everyday Tobacco user Assessment & Plan Assessment & Plan (1) Vitamin D deficiency: Code(s): E55.9 - Vitamin D deficiency, unspecified Category: Medical (2) History of ischemic colitis: Code(s): Z87.19 - Personal history of other diseases of the digestive system Category: Medical (3) History of Helicobacter pylori infection: Code(s): Z86.19 - Personal history of other infectious and parasitic diseases Category: Medical (4) Colitis: Code(s): K52.9 - Noninfective gastroenteritis and colitis, unspecified Category: Medical (5) Gastroparesis: Code(s): K31.84 - Gastroparesis Category: Medical Plan 63 YF with rheumatoid arthritis--Halista @ [facility]-discharged, COPD, fibromyalgia, asthma, Elevated levels of transaminases? & lactic acid dehydrogenase, Hepatic steatosis Thalamic pain syndrome,? H. pylori infection - treated, IBS (irritable bowel syndrome), TIA'S, urinary incontinence, chronic bronchitis, anxiety, depression, diabetes mellitus, left breast? cancer. Patient followed in GI for GERD and long standing constipation?likely due to IBS with constipation/ slow transit due to medications. Partial? improvement with Senna 1-2 tablet at? bedtime. Patient was diagnosed with Helicobacter pylori gastritis on EGD in?06/2018 and was treated with triple therapy. 06/2021 FU stool antigen for H pylori was negative Pt was advised to start Pantoprazole twice daily for GERD She has a hx of dysphagia likely due to esophageal motility disorder - no stricture or EOE noted on past EGD. Pt has been followed recently for upper abdominal pain, nausea and vomiting with decreased PO intake and wt loss 06/15/22 EGD was performed in findings as noted above Pt was advised to use a Foam Wedge at night and take famotidine at bedtime for nighttime reflux symptoms. If symptoms persist she may need further evaluation with Esophageal manometry and pH testing prior to considering fundoplication. 01/10/23 Pt seen with worsening symptoms, stopped taking Pantoprazole 2 months ago and advised to resume and take Famotidine prn for breakthrough symptoms 02/01/23 Pt complains of abd pain, bloating with diarrhea and black stools x past 3 days with weakness and dizziness Patient was advised to go to [facility] ER for further evaluation with labs and repeat CT scan (for Fu of ischemic colitis) Pt had a stable Hct and stool occult blood was negative 04/05/23 Pt advised to have labs and schedule an abd US with doppler to rule out mesenteric ischemia which was negative Stool calprotectin was borderline at 92. C1q, C1 estrase inhibitor protein and C4 were normal 04/29/23 IBD serologies were suggestive of Crohn's disease 06/03/23 Capsule Endoscopy showed: Conclusion: chronic gastritis, other santiago neg small bowel study . 08/16/23 Pt advised to start Lialda 2.4 grams daily for suspected Crohn's disease (Abd pain, nausea, fecal calprotectin of 92 and IBD serologies positive for Crohn's disease) Referral was sent to urology for follow-up of kidney stones Records requested from [facility] ER visit on 08/10/23 09/19/23 Continues to have nausea, bloating, gas and poor appetite Notes early satiety and denies vomiting. Hx of long standing DM. Pt advised to increase Amitiza to 16 mcg twice a day and to schedule a GES 01/23/24 Prescribed Trulance and was not covered by her insurance. Has a BM once a week when she is constipated. Started on MTX 15 mg once a week for RA by her Tapping Machine Operator Automatic which should help her Crohn's disease Complains of pain and tinging in her left foot and has a FU appt with her PCP on 01/29/24 06/04/24 Notes resolution of abdominal pain after hand assisted laparoscopic sigmoid colectomy with colorectal anastomosis Continues to have constipation and planning to start Senna Fu in 4 months Coding Level of Care Code Est Pt Level 4 (52344) Diagnoses Vitamin D deficiency E55.9 History of ischemic colitis Z87.19 History of Helicobacter pylori infection Z86.19 Colitis K52.9 Gastroparesis K31.84 Time Spent (min) 23
[2024-06-04 08:01] VITALS: BP 121/66; PULSE 96; BMI 19.9
== END 2024-06-04 08:25 | disposition home or self-care (01) ==
PROVIDERS: PCP Internal Medicine; Visit Provider Internal Medicine Gastroenterology
DX: E55.9 Vitamin D deficiency, unspecified (principal); Z87.19 Personal history of other diseases of the digestive system; Z86.19 Personal history of other infectious and parasitic diseases; K52.9 Noninfective gastroenteritis and colitis, unspecified; K31.84 Gastroparesis
CPT/HCPCS: 99214

== ENCOUNTER → 2024-06-04 07:47 | Outpatient (BNVA) | payer OTHER, SELFPAY ==
[2024-03-04 09:33] VITALS: BP 96/60; BP 96/66; BMI 22.5
== END ==
PROVIDERS: PCP Internal Medicine; Visit Provider Internal Medicine Gastroenterology
DX: K59.09 Other constipation (principal); K52.9 Noninfective gastroenteritis and colitis, unspecified; K31.84 Gastroparesis; E55.9 Vitamin D deficiency, unspecified; Z87.19 Personal history of other diseases of the digestive system; Z86.19 Personal history of other infectious and parasitic diseases
CPT/HCPCS: 99212

== ENCOUNTER 2024-06-04 10:40 | Outpatient (AMB) | payer OTHER, SELFPAY ==
[2024-03-04 09:33] VITALS: BP 96/60; BP 96/66; BMI 22.5
[2024-06-04 10:46] VITALS: BP 126/80; BMI 19.9
--- NOTE | 2024-06-04 10:46 | A.OFFPC_ITS ---
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 Required: No Accompanied by: Self / Same As Patient Allergies methylprednisolone Allergy (Severe, Verified 06/04/24 10:57) Rash from Solu-Medrol shellfish derived Allergy (Intermediate, Verified 06/04/24 10:57) Hives etanercept [From Enbrel] Adverse Reaction (Severe, Verified 06/04/24 10:57) Facial Swelling metformin Adverse Reaction (Severe, Verified 06/04/24 10:57) Diarrhea metronidazole [From FLAGYL] Adverse Reaction (Severe, Verified 06/04/24 10:57) Diarrhea prednisone Adverse Reaction (Intermediate, Verified 06/04/24 10:57) hallucinations, more than 20 mg doses Medication List - Last Reconciled 06/04/24 by Adela Wasserman MD albuterol sulfate 90 mcg/actuation 2 inhalations inhalation Q4H PRN aspirin 81 mg PO DAILY 90 days blood sugar diagnostic (FreeStyle Lite Strips) Use 1 test strip three times a day [clamp on tub safety rail As directed] dulaglutide (Trulicity) 1.5 mg (0.5 mL) subcut TH@0900 [ez printing services coordinator bed assist support As directed] famotidine 20 mg PO BEDTIME 90 days nwlbzejkczj-ylxurdlno-vcnesgyx 200-62.5-25 mcg (Trelegy Ellipta) 1 ea inhalation DAILY folic acid 1 mg PO DAILY lancets (FreeStyle Lancets) Use 1 lancet once a day letrozole 2.5 mg PO DAILY lisinopril 5 mg PO DAILY mesalamine 3.6 grams (3 x 1.2 gram) PO DAILY 30 days methotrexate sodium 15 mg (6 x 2.5 mg) PO QWEEK ondansetron 4 mg PO Q8H PRN pen needle, diabetic (Comfort EZ Pen [place]) Use 1 pen needle 6 times a day pregabalin (Lyrica) 200 mg PO BID Shower Chair As directed simethicone 125 mg PO DAILY PRN trazodone 100 mg PO BEDTIME 90 days walker with seat Tobacco use date assessed: 11/27/23 Dental Screening Dental Screen Date: 01/29/24 HPI HPI Comments History of Present Illness Details This is a 63-year-old female with diabetes mellitus type 2, COPD, rheumatoid arthritis and hypertension that complains of left breast pain that st arted a while ago. Last mammogram was less than a year ago and was normal. She has history of breast cancer. A1c within goal. COPD stable with long-acting inhaler. Rheumatoid arthritis is follow by Rheumatology. Cardiology saw her yesterday and add lisinopril. Blood pressure within goal. Labs will be order to check her LDL which should be less than 70. 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 Acute respiratory distress Tendonitis of ankle or foot Cough Stable angina Anxiety CAD (coronary artery disease) HLD (hyperlipidemia) HTN (hypertension) COPD exacerbation Hyperkalemia Atherosclerotic cardiovascular disease Hospital discharge follow-up Colitis GERD (gastroesophageal reflux disease) CVA (cerebral vascular accident) (~2018) Breast pain, right Rash Bloody diarrhea PAD (peripheral artery disease) Hyperlipidemia LDL goal <100 COPD (chronic obstructive pulmonary disease) Infiltrating ductal carcinoma of left breast, stage 2 Insomnia Dyslipidemia Bipolar 1 disorder, depressed Cough Restrictive airway disease Hypothyroid IDDM (insulin dependent diabetes mellitus) Vitamin D deficiency Osteoporosis Breast cancer Hyperparathyroidism Thyroid nodule T2DM (type 2 diabetes mellitus) Depression Fibromyalgia Seropositive rheumatoid arthritis Reactive airways dysfunction syndrome Allergic rhinitis Irritable bowel Anxiety Bronchial asthma Diabetes type 2, uncontrolled Surgical History S/P laparoscopic colectomy (04/15/24) Hx of sigmoidoscopy History of bronchoscopy Hx of endoscopy H/O cardiac catheterization History of lumpectomy of left breast History of pubovaginal sling History of esophagogastroduodenoscopy (EGD) History of tubal ligation History of colonoscopy History of bunionectomy of both great toes H/O: hysterectomy Family History Mother Diabetes HTN (hypertension) Uterus cancer Malignant tumor of head Breast cancer Father Diabetes HTN (hypertension) CVD (cardiovascular disease) Heart problem Maternal Aunt Breast cancer Brother Myocardial infarction S/P CABG x 4 Family/Other FH: mental illness Family/Other Lung cancer Other Mental health disorder Social History Household Members: Family Household Members Other:: sister Housing: House Are you a primary intensive care specialist to a significant other at home: No Do you presently have visiting nurse or other home services: No Unable to assess alcohol history related to: Unknown Alcohol intake: never Comment: Low fall Patient Tobacco Use Status: Current everyday Tobacco user Tobacco use type: Cigarette Cigarette Packs Per Day: 0.5 Cigarettes Per Day: 3 Years Smoked: 48 e-Cigarette/Vaping Use: Never Used Second Hand Smoke Exposure: No Substance Use Type: Marijuana Advance Directives Date on File: 12/22/21 service: No Current occupational status: disabled Current occupation: rt handed Cognitive needs: No Hearing needs: No Vision needs: Yes Questionnaire Thrive Questionnaire Date Thrive assessed: 04/16/24 FLAVIA-7 AMB Questionnaire FLAVIA-7 Date FLAVIA - 7 assessed: 11/27/23 Source: Developed by Drs. Hernandez Norris, Gissell Solorzano, Gilmar Szymanski and colleagues, with an educational chris from [employer]. Review of Systems Const All systems reviewed & are unremarkable except as noted in HPI and below Card Reports chest pain at rest, Denies chest pain with activity, Denies edema, Denies irregular heart rhythm, Denies claudication, Denies dyspnea, Denies dyspnea on exertion, Denies orthopnea, Denies paroxysmal nocturnal dyspnea and Denies slow heart rate Resp Denies cough, Denies dyspnea and Denies dyspnea on exertion GI Denies abdominal pain, Denies change in bowel habits, Denies excessive flatus, Denies nausea and Denies vomiting Physical exam (Primary Care) Vital Signs: Last Vital Signs BP 126/80 06/04/24 10:46 BMI result Body Mass Index 19.9 Tobacco/Smoking Status: Tobacco use Status Tobacco use date assessed 11/27/23 06/04/24 10:50 Patient Tobacco Use Status Current everyday Tobacco 06/04/24 10:50 Tobacco use type Cigarette 06/04/24 10:50 e-Cigarette/Vaping Use Never Used 06/04/24 10:50 Are you ready to quit: No Tobacco cessation counseling provided: Yes Items discussed: QuitWorks Relapse Prevention: discussed the importance of a supportive environment, discussed negative mood or depression after quitting, weight gain after smoking is common and discussed dietary, exercise and/or lifestyle changes Number of minutes spent counselin CPT code: 61888 - 4-10 Minutes Thrive Assessment: Date of Thrive Assessment Date Thrive assessed 04/16/24 06/04/24 10:50 Chest Breast/axilla palpation: abnormal palpation of the breast left lower outer tenderness Resp Effort & Inspection: normal respiratory effort Auscultation: clear to auscultation bilaterally Cardio Jugular venous distension: no JVD Rate: regular rate Rhythm: regular rhythm Heart sounds: S1 normal heart sound present and S2 normal heart sound present GI Inspection: Yes normal to inspection Palpation (GI): Soft to palpation and nontender Auscultation: normal bowel sounds Extrem General: Yes full ROM Results AMB Hemoglobin A1c AMB Hemoglobin A1c 5.9 % Last Edit by Lana Paniagua Julian on 06/04/24 11:0 3 AMB Urinalysis, Automated UA Leukoctes 0 [place]/uL Last Edit by Lana Paniagua Julian on 06/04/24 11:04 UA Nitrite Negative Last Edit by Lana Paniagua [facility] on 06/04/24 11:04 UA Urobilinogen 0.2 mg/dL Last Edit by Lana Paniagua [facility] on 06/04/24 11: 04 UA Protein 0 mg/dL Last Edit by Lana Paniagua [facility] on 06/04/24 11:04 UA pH 6.5 Last Edit by Lana Paniagua [facility] on 06/04/24 11:04 UA Blood 0 Mike/uL Last Edit by Lana Paniagua [facility] on 06/04/24 11:04 UA Specific [place] 1.015 Last Edit by Lana Paniagua [facility] on 06/04/24 11 :04 UA Ketone Negative Last Edit by Lana Paniagua [facility] on 06/04/24 11:04 UA Bilirubin 0 mg/dL Last Edit by Lana Paniagua [facility] on 06/04/24 11:04 UA Glucose 0 mg/dL Last Edit by Lana Paniagua [facility] on 06/04/24 11:04 Assessment and Plan Assessment & Plan (1) Diabetes mellitus: Code(s): E11.9 - Type 2 diabetes mellitus without complications Qualifiers: Diabetes mellitus type: type 2 Diabetes mellitus senior care insulin use: without senior care use Diabetes mellitus complication status: without complication Qualified Code(s): E11.9 - Type 2 diabetes mellitus without complications Plan: Continue Trulicity. A1c goal is equal or less than 7%. (2) COPD (chronic obstructive pulmonary disease): Code(s): J44.9 - Chronic obstructive pulmonary disease, unspecified Qualifiers: COPD type: unspecified COPD Qualified Code(s): J44.9 - Chronic obstructive pulmonary disease, unspecified Plan: Continue long-acting inhaler. Follow-up with pulmonology. Use rescue inhaler as needed. (3) HTN (hypertension): Code(s): I10 - Essential (primary) hypertension Qualifiers: Hypertension type: primary hypertension Qualified Code(s): I10 - Essential (primary) hypertension Plan: Continue lisinopril. Blood pressure goal is equal or less than 130/80. (4) Seropositive rheumatoid arthritis: Comment: [place]: 04/2021- 06/2022- stopped due to severe COPD requiring long standing azithromycin Plaquenil: approx. 02/2021-May 2021 self stopped Enbrel: approx. 02/2021 ordered after cleared for hep A, stopped due to allergy Sulfasalazine: approx. 02/2019- 02/2021 - restarted 09/27/2022 -04/2023 stopped due to heaedache and nausea Methorexate: approx. 11/2016-12/2018 started in [facility]. Diagnosed with breast CA so methotrexate discontinued. Changed to sulfsalazine 500mg 2 tabs BID to prevent lung fibrosis as patient was receiving radiation therapy for her breast CA. Completed Radiation therapy February 2019. OnTamoxifen but had side effects so was started on Letrozole in May 2019. Xeljanz: approx. 03/2018-04/2018 Cimzia: aprrox.05/2017- did not take Humira: dates unknown Leflunomide: many years ago, then approx. 08/2020-02/2021 Diagnosed 25 years ago Code(s): M05.9 - Rheumatoid arthritis with rheumatoid factor, unspecified Plan: Continue methotrexate. Follow-up with rheumatology. (5) Breast pain, left: Code(s): N64.4 - Mastodynia Plan: Diagnostic mammogram ordered. Orders: Orders AMB Hemoglobin A1c Today E11.9 - Type 2 diabetes mellitus without complications MM diagnostic mammo unilat LT Today N64.4 - Mastodynia AMB Urinalysis Automated Today R30.0 - Dysuria ECG 12 lead EKG Today R07.9 - Chest pain, unspecified Microalbumin, Random (w Creat) Today E11.9 - Type 2 diabetes mellitus without complications Comprehensive [place]. Panel Fast Today R07.9 - Chest pain, unspecified Coding Level of Care Code Est Pt Level 4 (99823) Complex EM visit Add On G2211 Diagnoses Type 2 diabetes mellitus without complication, without long-term current use of insulin E11.9 Diabetes mellitus type: type 2 Diabetes mellitus hat measurer insulin use: without hat measurer use Diabetes mellitus complication status: without complication Chronic obstructive pulmonary disease, unspecified COPD type J44.9 COPD type: unspecified COPD Primary hypertension I10 Hypertension type: primary hypertension Seropositive rheumatoid arthritis M05.9 Breast pain, left N64.4 Additional Codes Vital Signs *Quality* - CPT code: 35957 - 4-10 Minutes ([id number]) Time Spent (min) 25
== END 2024-06-04 11:11 | disposition home or self-care (01) ==
PROVIDERS: PCP Internal Medicine; Visit Provider Internal Medicine
DX: E11.9 Type 2 diabetes mellitus without complications (principal); J44.9 Chronic obstructive pulmonary disease, unspecified; I10 Essential (primary) hypertension; M05.9 Rheumatoid arthritis with rheumatoid factor, unspecified; N64.4 Mastodynia; R30.0 Dysuria
CPT/HCPCS: 81003; 83036; 99214; 99406; G2211

== ENCOUNTER 2024-06-04 11:26 | Outpatient (REF) | payer OTHER, SELFPAY ==
[2024-03-04 09:33] VITALS: BP 96/60; BP 96/66; BMI 22.5
--- NOTE | 2024-06-04 11:32 | ECG_ITS ---
Test Reason : chest pain Blood Pressure : / mmHG Vent. Rate : 068 BPM Atrial Rate : 068 BPM P-R Int : 136 ms QRS Dur : 082 ms QT Int : 362 ms P-R-T Axes : 062 078 070 degrees QTc Int : 384 ms Normal sinus rhythm Normal ECG When compared with ECG of 11-DEC-2023 14:02, No significant change was found Referred By: Adela Wasserman Electronically Signed By:MARIA ELENA APODACA MD
== END 2024-06-04 11:27 | disposition home or self-care (01) ==
LOC: HO.LAB 11:26
PROVIDERS: PCP Internal Medicine; Visit Provider Internal Medicine
DX: R07.9 Chest pain, unspecified (principal)
CPT/HCPCS: 93005

== ENCOUNTER → 2024-06-04 11:32 | Outpatient (BNV) | payer OTHER, SELFPAY ==
[2024-03-04 09:33] VITALS: BP 96/60; BP 96/66; BMI 22.5
== END ==
PROVIDERS: PCP Internal Medicine; Visit Provider Internal Medicine Cardiovascular Disease
DX: R07.9 Chest pain, unspecified (principal)
CPT/HCPCS: 93010

== ENCOUNTER 2024-06-05 10:41 | Outpatient (AMB) | payer OTHER, SELFPAY ==
[2024-03-04 09:33] VITALS: BP 96/60; BP 96/66; BMI 22.5
--- NOTE | 2024-06-05 10:42 | A.OFFVIS_ITS ---
Vital Signs 06/05/24 10:51 Height 4 ft 10 in Weight 97 lb 2 oz BMI 20.3 BP 126/55 L Blood Pressure Location Lt brachial Position Sitting Pulse 86 Intake Visit Reasons: 4wk s/p lap sigmoid colectomy Intake Note: Patient is seen in office for one month follow up visit, post laparoscopic sigmoid colectomy. 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: Machine Learning Intern Present Accompanied by: Self / Same As Patient Allergies methylprednisolone Allergy (Severe, Verified 06/05/24 10:57) Rash from Solu-Medrol shellfish derived Allergy (Intermediate, Verified 06/05/24 10:57) Hives etanercept [From Enbrel] Adverse Reaction (Severe, Verified 06/05/24 10:57) Facial Swelling metformin Adverse Reaction (Severe, Verified 06/05/24 10:57) Diarrhea metronidazole [From FLAGYL] Adverse Reaction (Severe, Verified 06/05/24 10:57) Diarrhea prednisone Adverse Reaction (Intermediate, Verified 06/05/24 10:57) hallucinations, more than 20 mg doses Medication List - Last Reconciled 06/05/24 by Hayden Rodriguez MD albuterol sulfate 90 mcg/actuation 2 inhalations inhalation Q4H PRN aspirin 81 mg PO DAILY 90 days blood sugar diagnostic (FreeStyle Lite Strips) Use 1 test strip three times a day [clamp on tub safety rail As directed] dulaglutide (Trulicity) 1.5 mg (0.5 mL) subcut TH@0900 [ez dehairing machine tender bed assist support As directed] famotidine 20 mg PO BEDTIME 90 days gcpsxazuvzo-qzmakkkmg-oahfdvem 200-62.5-25 mcg (Trelegy Ellipta) 1 ea inhalation DAILY folic acid 1 mg PO DAILY lancets (FreeStyle Lancets) Use 1 lancet once a day letrozole 2.5 mg PO DAILY lisinopril 5 mg PO DAILY mesalamine 3.6 grams (3 x 1.2 gram) PO DAILY 30 days methotrexate sodium 15 mg (6 x 2.5 mg) PO QWEEK ondansetron 4 mg PO Q8H PRN pen needle, diabetic (Comfort EZ Pen [place]) Use 1 pen needle 6 times a day pregabalin (Lyrica) 200 mg PO BID Shower Chair As directed simethicone 125 mg PO DAILY PRN trazodone 100 mg PO BEDTIME 90 days walker with seat HPI Comments Details: 63-year-old female returning following hand assisted laparoscopic sigmoid colectomy performed on 04/15/2024. She reports feeling much improved with no further abdominal pain. Her bowels are moving normally without difficulty. Her only issue remaining was difficulty with urinating. She was tested for urinary infection which was negative. She also reports pain in the left breast to the outside of the breast. This will come intermittently throughout the day without any inciting events. She denies any skin changes or palpable lumps. Dr. Garcia has requested a follow-up mammogram. [facility] Medical History Diverticulitis large intestine USP (current) use 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 Acute respiratory distress Tendonitis of ankle or foot Cough Stable angina Anxiety CAD (coronary artery disease) HLD (hyperlipidemia) HTN (hypertension) COPD exacerbation Hyperkalemia Atherosclerotic cardiovascular disease Hospital discharge follow-up Colitis GERD (gastroesophageal reflux disease) CVA (cerebral vascular accident) (~2018) Breast pain, right Rash Bloody diarrhea PAD (peripheral artery disease) Hyperlipidemia LDL goal <100 COPD (chronic obstructive pulmonary disease) Infiltrating ductal carcinoma of left breast, stage 2 Insomnia Dyslipidemia Bipolar 1 disorder, depressed Cough Restrictive airway disease Hypothyroid IDDM (insulin dependent diabetes mellitus) Vitamin D deficiency Osteoporosis Breast cancer Hyperparathyroidism Thyroid nodule T2DM (type 2 diabetes mellitus) Depression Fibromyalgia Seropositive rheumatoid arthritis Reactive airways dysfunction syndrome Allergic rhinitis Irritable bowel Anxiety Bronchial asthma Diabetes type 2, uncontrolled Surgical History S/P laparoscopic colectomy (04/15/24) Hx of sigmoidoscopy History of bronchoscopy Hx of endoscopy H/O cardiac catheterization History of lumpectomy of left breast History of pubovaginal sling History of esophagogastroduodenoscopy (EGD) History of tubal ligation History of colonoscopy History of bunionectomy of both great toes H/O: hysterectomy Family History Mother Diabetes HTN (hypertension) Uterus cancer Malignant tumor of head Breast cancer Father Diabetes HTN (hypertension) CVD (cardiovascular disease) Heart problem Maternal Aunt Breast cancer Brother Myocardial infarction S/P CABG x 4 Family/Other FH: mental illness Family/Other Lung cancer Other Mental health disorder Social History Household Members: Family Household Members Other:: sister Housing: House Are you a primary nursing care partner to a significant other at home: No Do you presently have visiting nurse or other home services: No Unable to assess alcohol history related to: Unknown Alcohol intake: never Comment: Low fall Patient Tobacco Use Status: Current everyday Tobacco user Tobacco use type: Cigarette Cigarette Packs Per Day: 0.5 Cigarettes Per Day: 3 Years Smoked: 48 e-Cigarette/Vaping Use: Never Used Second Hand Smoke Exposure: No Substance Use Type: Marijuana Advance Directives Date on File: 12/22/21 service: No Current occupational status: disabled Current occupation: rt handed Cognitive needs: No Hearing needs: No Vision needs: Yes Review of Systems Const All systems reviewed & are unremarkable except as noted in HPI and below Denies chills, Denies fever(s) and Denies night sweats Card Denies chest pain and Denies dyspnea Resp Denies chest congestion, Denies cough and Denies dyspnea GI Reports as per HPI and Reports abdominal pain Reports nipple discharge Skin/Breast Reports breast swelling, Denies breast skin changes, Reports breast pain, Denies breast mass, Reports change in breast shape and Reports nipple discharge Adarsh/Lymph Denies lymphadenopathy Physical Exam Vital Signs: Last Vital Signs Pulse 86 06/05/24 10:51 BP 126/55 L 06/05/24 10:51 BMI result Body Mass Index 20.3 Const General: no acute distress Nutritional Appearance: well nourished Orientation/consciousness: patient oriented x3 Chest Other: Examination of the left breast reveals no skin change, nipple discharge, nipple retraction, palpable mass or enlarged lymph node. There is tenderness to the lateral portion of the breast over the pectoralis muscle. No palpable masses noted in this location. Resp Effort & Inspection: normal respiratory effort GI Other: Soft and nondistended, well-healed trocar and lower midline incision without hernia or infection. Skin Other: Warm and dry, no rashes Neuro General: patient oriented x3 Quality Reporting (2019) Adult ([facility] 138//) Smoking risk assessment performed?: Yes Patient Tobacco Use Status: Current everyday Tobacco user Assessment & Plan Assessment & Plan (1) Breast pain, left: Code(s): N64.4 - Mastodynia Category: Medical (2) Diverticulitis: Code(s): K57.92 - Diverticulitis of intestine, part unspecified, without perforation or abscess without bleeding Category: Medical Plan 63-year-old female patient returning following hand assisted laparoscopic sigmoid colectomy. Her wounds are clean, dry and intact without evidence of hernia or infection. She may resume normal activity without restrictions. Examination of the left breast revealed no suspicious findings. Symptoms appear to be more within the muscle lateral to the breast than the actual breast tissue. She will be scheduled for a follow-up mammogram. She will follow-up in 03/07/2025 routine breast examination. Coding Level of Care Code Global (70310) Diagnoses Breast pain, left N64.4 Diverticulitis K57.92
[2024-06-05 10:51] VITALS: BP 126/55; PULSE 86; BMI 20.3
== END 2024-06-05 10:59 | disposition home or self-care (01) ==
PROVIDERS: PCP Internal Medicine; Visit Provider Surgery
DX: N64.4 Mastodynia (principal); K57.92 Diverticulitis of intestine, part unspecified, without perforation or abscess without bleeding
CPT/HCPCS: 99024

== ENCOUNTER → 2024-06-05 10:41 | Outpatient (BNVA) | payer OTHER, SELFPAY ==
[2024-03-04 09:33] VITALS: BP 96/60; BP 96/66; BMI 22.5
== END ==
PROVIDERS: PCP Internal Medicine; Visit Provider Surgery
DX: N64.4 Mastodynia (principal); Z48.815 Encounter for surgical aftercare following surgery on the digestive system; Z87.19 Personal history of other diseases of the digestive system
CPT/HCPCS: 99212

== ENCOUNTER 2024-06-11 07:43 | Outpatient (REF) | payer OTHER, SELFPAY ==
[2024-03-04 09:33] VITALS: BP 96/60; BP 96/66; BMI 22.5
[2024-06-11 08:47] LABS: Alanine Aminotransferase 19 U/L (0-31); Albumin Level 3.8 g/dL (3.5-5.0); Alkaline Phosphatase 66 U/L (39-117); Anion Gap 17 (12-20); Aspartate Amino Transferase 15 U/L (5-31); Bilirubin Total 0.2 mg/dL (0.0-1.0); Blood Urea Nitrogen 18 mg/dL (9-16); Calcium 9.7 mg/dL (8.4-10.2); Carbon Dioxide 22 mmol/L (22-29); Chloride 106 mmol/L (96-108); Cholesterol 190 mg/dL (<200); Estimated Glomerular Filt Rate 36; Glucose Fasting 193 mg/dL (60-99); HDL Cholesterol 35 mg/dL (>40); LDL Cholesterol Calculated 108 mg/dL (<100); Potassium 4.1 mmol/L (3.3-5.1); Sodium 141 mmol/L (135-145); Total Protein 6.8 g/dL (6.5-8.0); Triglycerides 239 mg/dL (<150)
[2024-06-11 08:49] LABS: Creatinine Urine 254.96 mg/dL; Microalbum/Creatinine Ratio Ur 61.9 ug/mg cr (<30)
[2024-06-11 09:01] LABS: Vitamin D 25-OH Total 43.8 ng/mL (>30)
== END 2024-06-11 07:44 | disposition home or self-care (01) ==
LOC: HO.LAB 07:43
PROVIDERS: Absent Provider Internal Medicine Medical Oncology; PCP Internal Medicine; Visit Provider Internal Medicine
DX: M79.605 Pain in left leg (principal); E55.9 Vitamin D deficiency, unspecified; E78.5 Hyperlipidemia, unspecified; E11.9 Type 2 diabetes mellitus without complications
CPT/HCPCS: 36415; 80053; 80061; 82043; 82306; 82570

== ENCOUNTER 2024-06-25 11:10 | Outpatient (REF) | payer OTHER, SELFPAY ==
[2024-03-04 09:33] VITALS: BP 96/60; BP 96/66; BMI 22.5
[2024-06-25 12:14] LABS: MANUAL DIFF FLAG NO
[2024-06-25 12:43] LABS: Basophils Percent Auto 0.3 % (0-2); Eosinophils Absolute Auto 0.1 X10*3/uL (0.0-0.4); Hemoglobin 13.2 g/dl (12.0-16.0); Imm Gran Abs Auto 0.02 X10*3/uL (0.00-0.03); Imm Gran Pct Auto 0.3 % (0.0-0.4); Lymphocytes Absolute Auto 1.9 X10*3/uL (1.2-4.9); Lymphocytes Percent Auto 31.9 % (20-40); Mean Corpuscular Hemoglobin 29.9 pg (27.0-33.0); Mean Corpuscular Volume 90.7 fL (80.0-98.0); Mean Platelet Volume 10.9 fL (9.4-12.3); Monocytes Absolute Auto 0.4 X10*3/uL (0.1-1.2); Monocytes Percent Auto 7.3 % (2-11); Neutrophils Absolute Auto 3.5 x10*3/uL (2.0-8.3); Neutrophils Percent Auto 59.2 % (45-73); Platelet Count 312 X10*3/uL (160-400); Red Blood Count 4.41 X10*6/uL (4.20-5.50); Red Cell Distribution Width 14.6 % (11.0-16.0); White Blood Count 5.9 X10*3/uL (4.8-10.8)
[2024-06-25 13:19] LABS: Erythrocyte Sedimentation Rate 17 MM/HR (0-20)
[2024-06-25 13:51] LABS: Alanine Aminotransferase 8 U/L (0-31); Albumin Level 4.1 g/dL (3.5-5.0); Alkaline Phosphatase 62 U/L (39-117); Anion Gap 11 (12-20); Aspartate Amino Transferase 13 U/L (5-31); Bilirubin Total 0.3 mg/dL (0.0-1.0); Blood Urea Nitrogen 14 mg/dL (9-16); C Reactive Protein 0.38 mg/dL (< or = 0.50); Calcium 9.6 mg/dL (8.4-10.2); Carbon Dioxide 27 mmol/L (22-29); Chloride 106 mmol/L (96-108); Estimated Glomerular Filt Rate > 60; Glucose Random 100 mg/dL (60-115); Potassium 4.2 mmol/L (3.3-5.1); Sodium 140 mmol/L (135-145); Total Protein 7.3 g/dL (6.5-8.0)
[2024-06-26 08:48] LABS: HBS Num1 0.52 mIU/mL (0-7.99); HBc Num1 0.13 S/CO (0.00-0.79); HBsAGNum1 0.29 S/CO (0.00-0.99); Hepatitis A Antibody IgM 0.53 Index (0-0.79); Hepatitis B Core Antibody Nonreactive (Nonreactive); Hepatitis B Surface Antigen Negative (Negative); ~HepC Num1 0.19 S/CO (0.00-0.79); ~Hepatitis A Antibody IgM Nonreactive (Nonreactive); ~Hepatitis B Surface Antibody NONREACTIVE (Nonreactive); ~Hepatitis C Antibody Nonreactive (Nonreactive)
[2024-06-28 08:53] LABS: TS Negative Control Passed; TS Panel A 0; TS Panel B 0; TS Positive Control Passed; TSpotTB Negative (Negative)
== END 2024-06-25 11:11 | disposition home or self-care (01) ==
LOC: HO.LAB 11:10
PROVIDERS: PCP Internal Medicine; Visit Provider Student in an Organized Health Care Education/Training Program
DX: M05.9 Rheumatoid arthritis with rheumatoid factor, unspecified (principal); Z11.59 Encounter for screening for other viral diseases; Z11.7 Encounter for testing for latent tuberculosis infection; Z79.61 Long term (current) use 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
CPT/HCPCS: 36415; 80053; 85025; 85652; 86140; 86481; 86704; 86706; 86709; 86803; 87340; 99212

== ENCOUNTER 2024-06-25 11:10 | Outpatient (AMB) | payer OTHER, SELFPAY ==
[2024-03-04 09:33] VITALS: BP 96/60; BP 96/66; BMI 22.5
--- NOTE | 2024-06-25 11:14 | MHC.OFFVIS ---
Vital Signs 06/25/24 11:19 Height 4 ft 10 in Weight 92 lb 13.034 oz BMI 19.4 BP 112/70 Blood Pressure Location Rt brachial Position Sitting Pulse 84 Pulse Source Pulse Oximeter Pulse Oximetry (%) 97 Oxygen Delivery Method Room Air Intake Visit Reasons: RA/CM Intake Note: Patient presents for RA. Allergies methylprednisolone Allergy (Severe, Verified 06/25/24 11:18) Rash from Solu-Medrol shellfish derived Allergy (Intermediate, Verified 06/25/24 11:18) Hives etanercept [From Enbrel] Adverse Reaction (Severe, Verified 06/25/24 11:18) Facial Swelling metformin Adverse Reaction (Severe, Verified 06/25/24 11:18) Diarrhea metronidazole [From FLAGYL] Adverse Reaction (Severe, Verified 06/25/24 11:18) Diarrhea prednisone Adverse Reaction (Intermediate, Verified 06/25/24 11:18) hallucinations, more than 20 mg doses Medication List - Last Reconciled 06/25/24 by Nelly Reyes MD albuterol sulfate 90 mcg/actuation 2 inhalations inhalation Q4H PRN aspirin 81 mg PO DAILY 90 days blood sugar diagnostic (FreeStyle Lite Strips) Use 1 test strip three times a day [clamp on tub safety rail As directed] dulaglutide (Trulicity) 1.5 mg (0.5 mL) subcut TH@0900 [ez home theatre technician bed assist support As directed] famotidine 20 mg PO BEDTIME 90 days tijouyokesj-fyhtfaxls-ilxfrapx 200-62.5-25 mcg (Trelegy Ellipta) 1 ea inhalation DAILY folic acid 1 mg PO DAILY lancets (FreeStyle Lancets) Use 1 lancet once a day letrozole 2.5 mg PO DAILY lisinopril 5 mg PO DAILY methotrexate sodium 15 mg (6 x 2.5 mg) PO QWEEK ondansetron 4 mg PO Q8H PRN pen needle, diabetic (Comfort EZ Pen [place]) Use 1 pen needle 6 times a day prednisone 5 - 10 mg (1 - 2 x 5 mg) PO DAILY PRN pregabalin (Lyrica) 200 mg PO BID Shower Chair As directed simethicone 125 mg PO DAILY PRN trazodone 100 mg PO BEDTIME 90 days walker with seat HPI Comments Details: This is a 64-year-old female with seropositive RA who presents for follow-up. Last visit 2 months ago she was started methotrexate 15 mg weekly by Lizette Ma. Patient states that she noted significant improvement, she was having much less frequent flare-ups of joint pain and swelling of her hands. Until last week when she started having mild flare-ups affecting her right hand knuckles. She has been taking prednisone most days over the last week. She is doing well otherwise. [facility] Medical History Diverticulitis large intestine detention (current) use 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 Acute respiratory distress Tendonitis of ankle or foot Cough Stable angina Anxiety CAD (coronary artery disease) HLD (hyperlipidemia) HTN (hypertension) COPD exacerbation Hyperkalemia Atherosclerotic cardiovascular disease Hospital discharge follow-up Colitis GERD (gastroesophageal reflux disease) CVA (cerebral vascular accident) (~2018) Breast pain, right Rash Bloody diarrhea PAD (peripheral artery disease) Hyperlipidemia LDL goal <100 COPD (chronic obstructive pulmonary disease) Infiltrating ductal carcinoma of left breast, stage 2 Insomnia Dyslipidemia Bipolar 1 disorder, depressed Cough Restrictive airway disease Hypothyroid IDDM (insulin dependent diabetes mellitus) Vitamin D deficiency Osteoporosis Breast cancer Hyperparathyroidism Thyroid nodule T2DM (type 2 diabetes mellitus) Depression Fibromyalgia Seropositive rheumatoid arthritis Reactive airways dysfunction syndrome Allergic rhinitis Irritable bowel Anxiety Bronchial asthma Diabetes type 2, uncontrolled Surgical History S/P laparoscopic colectomy (04/15/24) Hx of sigmoidoscopy History of bronchoscopy Hx of endoscopy H/O cardiac catheterization History of lumpectomy of left breast History of pubovaginal sling History of esophagogastroduodenoscopy (EGD) History of tubal ligation History of colonoscopy History of bunionectomy of both great toes H/O: hysterectomy Family History Mother Diabetes HTN (hypertension) Uterus cancer Malignant tumor of head Breast cancer Father Diabetes HTN (hypertension) CVD (cardiovascular disease) Heart problem Maternal Aunt Breast cancer Brother Myocardial infarction S/P CABG x 4 Family/Other FH: mental illness Family/Other Lung cancer Other Mental health disorder Social History Household Members: Family Household Members Other:: sister Housing: House Are you a primary career placement services counselor to a significant other at home: No Do you presently have visiting nurse or other home services: No Unable to assess alcohol history related to: Unknown Alcohol intake: never Comment: Low fall Patient Tobacco Use Status: Current everyday Tobacco user Tobacco use type: Cigarette Cigarette Packs Per Day: 0.5 Cigarettes Per Day: 3 Years Smoked: 48 e-Cigarette/Vaping Use: Never Used Second Hand Smoke Exposure: No Substance Use Type: Marijuana Advance Directives Date on File: 12/22/21 service: No Current occupational status: disabled Current occupation: rt handed Cognitive needs: No Hearing needs: No Vision needs: Yes Review of Systems Const Reports weight loss Musc Reports arthralgias, Reports joint swelling and Reports stiffness Physical Exam Vital Signs: Last Vital Signs Pulse 84 06/25/24 11:19 BP 112/70 06/25/24 11:19 Pulse Ox 97 06/25/24 11:19 Oxygen Delivery Method Room Air 06/25/24 11:19 BMI result Body Mass Index 19.4 Const General: cooperative, healthy appearing and comfortable Nutritional Appearance: thin Orientation/consciousness: patient oriented x3 Limitations: no limitations HEENT Head: Yes normocephalic and Yes atraumatic Mouth: moist mucous membranes Resp Effort & Inspection: normal respiratory effort and able to speak in complete sentences Auscultation: clear to auscultation bilaterally Skin General skin exam: no rashes or lesions noted Neuro General: patient oriented x3 Extrem Other: Minimal osteoarthritic changes of both hands Subtle right 4th MCP swelling and tenderness Bilateral 2nd through 5th flexor tendon tenderness No active synovitis otherwise Quality Reporting (2019) Adult ([facility] 138/01/09/) Smoking risk assessment performed?: Yes Patient Tobacco Use Status: Current everyday Tobacco user Assessment & Plan Assessment & Plan (1) Seropositive rheumatoid arthritis: Comment: +++RF+++CCP dx around 1999 [place]: 04/2021- 06/2022- stopped due to severe COPD requiring long standing azithromycin Plaquenil: approx. 02/2021-May 2021 self stopped Enbrel: approx. 02/2021 ordered after cleared for hep A, stopped due to allergy Sulfasalazine: approx. 02/2019- 02/2021 - restarted 09/27/2022 -04/2023 stopped due to heaedache and nausea Methorexate: approx. 11/2016-12/2018 started in [facility] [place] [facility] [place] Diagnosed with breast CA so methotrexate discontinued. Changed to sulfsalazine 500mg 2 tabs BID to prevent lung fibrosis as patient was receiving radiation therapy for her breast CA. Completed Radiation therapy February 2019. OnTamoxifen but had side effects so was started on Letrozole in May 2019. Xeljanz: approx. 03/2018-04/2018 Cimzia: aprrox.05/2017- did not take Humira: dates unknown Leflunomide: many years ago, then approx. 08/2020-02/2021 Code(s): M05.9 - Rheumatoid arthritis with rheumatoid factor, unspecified Category: Medical Plan: This is a 64-year-old female with seropositive RA who presents for follow-up. This is her 1st visit with me. She was started on methotrexate 15 mg weekly by Lizette Ma about 2 months ago. She feels much better overall, less frequent flare-ups. Been having flare-ups over the last week. Treated with prednisone. I exam she has only few swollen and tender joints. Recent labs showed mild bump in creatinine. Recheck labs today. 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
[2024-06-25 11:19] VITALS: BP 112/70; PULSE 84; O2SAT 97; BMI 19.4
== END 2024-06-25 11:51 | disposition home or self-care (01) ==
PROVIDERS: PCP Internal Medicine; Visit Provider Student in an Organized Health Care Education/Training Program
DX: M05.79 Rheumatoid arthritis with rheumatoid factor of multiple sites without organ or systems involvement (principal); Z79.61 Long term (current) use 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
CPT/HCPCS: 99214

== ENCOUNTER 2024-07-22 14:25 | Outpatient (AMB) | payer OTHER, SELFPAY ==
[2024-07-16 09:49] VITALS: BP 96/60; BP 96/66; BMI 22.5
--- NOTE | 2024-07-22 14:30 | MHC.OFFVIS ---
Intake Visit Reasons: 2m/PVR Intake Note: Patient presents for follow up visit on: Kidney stones and uti Urology Medications: none Blood Thinner: aspirin PVR: 0ml's Cupola Tender Required: No Accompanied by: Self / Same As Patient Allergies methylprednisolone Allergy (Severe, Verified 07/22/24 19:40) Rash from Solu-Medrol shellfish derived Allergy (Intermediate, Verified 07/22/24 19:40) Hives etanercept [From Enbrel] Adverse Reaction (Severe, Verified 07/22/24 19:40) Facial Swelling metformin Adverse Reaction (Severe, Verified 07/22/24 19:40) Diarrhea metronidazole [From FLAGYL] Adverse Reaction (Severe, Verified 07/22/24 19:40) Diarrhea prednisone Adverse Reaction (Intermediate, Verified 07/22/24 19:40) hallucinations, more than 20 mg doses Medication List - Last Reconciled 07/22/24 by ARTEMIO Pagan-NICHO albuterol sulfate 90 mcg/actuation 2 inhalations inhalation Q4H PRN aspirin 81 mg PO DAILY 90 days blood sugar diagnostic (FreeStyle Lite Strips) Use 1 test strip three times a day [clamp on tub safety rail As directed] dulaglutide (Trulicity) 1.5 mg (0.5 mL) subcut TH@0900 [ez botany laboratory assistant bed assist support As directed] famotidine 20 mg PO BEDTIME 90 days gmxnoniqfxl-kvypdjqfk-nvzymjox 200-62.5-25 mcg (Trelegy Ellipta) 1 ea inhalation DAILY folic acid 1 mg PO DAILY lancets (FreeStyle Lancets) Use 1 lancet once a day letrozole 2.5 mg PO DAILY lisinopril 5 mg PO DAILY methotrexate sodium 15 mg (6 x 2.5 mg) PO QWEEK ondansetron 4 mg PO Q8H PRN pen needle, diabetic (Comfort EZ Pen [place]) Use 1 pen needle 6 times a day prednisone 5 - 10 mg (1 - 2 x 5 mg) PO DAILY PRN pregabalin (Lyrica) 200 mg PO BID Shower Chair As directed simethicone 125 mg PO DAILY PRN trazodone 100 mg PO BEDTIME 90 days walker with seat HPI Comments Details: Sosa is a very pleasant 64-year-old Nauruan-speaking female patient of Dr. Jose Wasserman. She has a past medical history of colitis, anxiety, coronary artery disease, hyperlipidemia, hypertension, type 2 diabetes, ACD, COPD, GERD, CVA, bipolar disorder, dyslipidemia, insomnia, hypothyroidism, vitamin-D deficiency, osteoporosis, depression, CAD fibromyalgia, and irritable bowel syndrome. She presents to the office today for follow-up of her nephrolithiasis and lower urinary tract symptoms she had been experiencing. Of note, during last office visit approximately 4 months ago patient had been reporting dysuria at which time urinalysis noted 3+ leukocytes and negative nitrates urine was sent for urine culture that noted no growth. Patient reports symptoms she had been experiencing has since subsided. In office urinalysis results reviewed with the patient today. PVR 0 mL. Previous workup has included a CT 05/11 bilateral kidneys with no hydronephrosis or renal calculi. She denies urinary urgency, urinary frequency, incontinence, nocturia, hematuria, dysuria, foul smelling urine, changes to urinary stream, flank pain, fever, and or chills. She is happy with her current voiding parameters. She discusses her ongoing issues with Crohn's disease. She otherwise offers no issues or concerns. 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 Acute respiratory distress Tendonitis of ankle or foot Cough Stable angina Anxiety CAD (coronary artery disease) HLD (hyperlipidemia) HTN (hypertension) COPD exacerbation Hyperkalemia Atherosclerotic cardiovascular disease Hospital discharge follow-up Colitis GERD (gastroesophageal reflux disease) CVA (cerebral vascular accident) (~2017) Breast pain, right Rash Bloody diarrhea PAD (peripheral artery disease) Hyperlipidemia LDL goal <100 COPD (chronic obstructive pulmonary disease) Infiltrating ductal carcinoma of left breast, stage 2 Insomnia Dyslipidemia Bipolar 1 disorder, depressed Cough Restrictive airway disease Hypothyroid IDDM (insulin dependent diabetes mellitus) Vitamin D deficiency Osteoporosis Breast cancer Hyperparathyroidism Thyroid nodule T2DM (type 2 diabetes mellitus) Depression Fibromyalgia Seropositive rheumatoid arthritis Reactive airways dysfunction syndrome Allergic rhinitis Irritable bowel Anxiety Bronchial asthma Diabetes type 2, uncontrolled Surgical History S/P laparoscopic colectomy (04/15/24) Hx of sigmoidoscopy History of bronchoscopy Hx of endoscopy H/O cardiac catheterization History of lumpectomy of left breast History of pubovaginal sling History of esophagogastroduodenoscopy (EGD) History of tubal ligation History of colonoscopy History of bunionectomy of both great toes H/O: hysterectomy Family History Mother Diabetes HTN (hypertension) Uterus cancer Malignant tumor of head Breast cancer Father Diabetes HTN (hypertension) CVD (cardiovascular disease) Heart problem Maternal Aunt Breast cancer Brother Myocardial infarction S/P CABG x 4 Family/Other FH: mental illness Family/Other Lung cancer Other Mental health disorder Social History Household Members: Family Household Members Other:: sister Housing: House Are you a primary pet care technician to a significant other at home: No Do you presently have visiting nurse or other home services: No Unable to assess alcohol history related to: Unknown Alcohol intake: never Comment: Low fall Patient Tobacco Use Status: Current everyday Tobacco user Tobacco use type: Cigarette Cigarette Packs Per Day: 0.5 Cigarettes Per Day: 3 Years Smoked: 48 e-Cigarette/Vaping Use: Never Used Second Hand Smoke Exposure: No Substance Use Type: Marijuana Advance Directives Date on File: 12/22/21 service: No Current occupational status: disabled Current occupation: rt handed Cognitive needs: No Hearing needs: No Vision needs: Yes Review of Systems Const Reports as per HPI Eyes Reports no additional complaints ENT Reports no additional complaints Card Reports as per HPI Resp Reports as per HPI GI Reports as per HPI Reports as per HPI Musc Reports as per HPI Neuro Reports as per HPI Psych Reports as per HPI Physical Exam Const General: cooperative, healthy appearing, comfortable, no acute distress, well developed, alert and awake Orientation/consciousness: patient oriented x3 Limitations: no limitations HEENT Head: Yes normal to inspection, Yes normocephalic and Yes atraumatic Ears: hearing grossly normal bilaterally Eyes General: appearance normal, both eyes and all related structures Neck Neck: Yes normal visual inspection and Yes trachea midline Chest Chest palpation & inspection: normal inspection of the chest Resp Effort & Inspection: normal respiratory effort and able to speak in complete sentences Cardio Rate: regular rate GI Inspection: Yes normal to inspection General: Yes no CVA tenderness Back/Spine/Pelvis Back: no CVA tenderness Skin General skin exam: no rashes or lesions noted Neuro General: patient oriented x3 Extrem General: Yes normal to inspection Psych Appearance: grossly normal and well kempt Mental Status: mental status grossly normal Speech and movement: Normal speech and movement present and Clear speech present Affect: normal affect Attitude: cooperative Thought process: Normal thought process present Thought content: Normal thought content present Insight: Fair insight present (Psych) Judgement: Fair judgement present (Psych) Office Procedures Post Void Residual Post Residual Void Post Void Residual (PVR): 0 75000-Ajjx Void Residual by ultrasound Results AMB Urinalysis, Automated UA Leukoctes 70 [place]/uL Last Edit by [employer] on 07/22/24 14:45 UA Nitrite Last Edit by [employer] on 07/22/24 14:45 UA Urobilinogen 0.2 mg/dL Last Edit by [employer] on 07/22/24 14:45 UA Protein 15 mg/dL Last Edit by [employer] on 07/22/24 14:45 UA pH 6.0 Last Edit by [employer] on 07/22/24 14:45 UA Blood 0 Mike/uL Last Edit by [employer] on 07/22/24 14:45 UA Specific [place] 1.030 Last Edit by [employer] on 07/22/24 14:45 UA Ketone Last Edit by [employer] on 07/22/24 14:45 UA Bilirubin 0 mg/dL Last Edit by [employer] on 07/22/24 14:45 UA Glucose 0 mg/dL Last Edit by [employer] on 07/22/24 14:45 Quality Reporting (2019) Adult ([facility] 138/01/09/69) Smoking risk assessment performed?: Yes Patient Tobacco Use Status: Current everyday Tobacco user Results Reviewed Results Reviewed: Laboratory Last Values Urine pH (Auto) 6.0 07/22/24 14:35 Specific [place] (Auto) 1.030 07/22/24 14:35 Urine Protein (Auto) 15 mg/dL 07/22/24 14:35 Glucose (UA)(Auto) 0 mg/dL 07/22/24 14:35 Urine Blood (Auto) 0 Mike/uL 07/22/24 14:35 Urine Bilirubin (Auto) 0 mg/dL 07/22/24 14:35 Urine Urobilinogen (Auto) 0.2 mg/dL 07/22/24 14:35 Leukocyte Esterase (Auto) 70 [place]/uL 07/22/24 14:35 Assessment & Plan Assessment & Plan (1) Sensation of pressure in bladder area: Code(s): R39.89 - Other symptoms and signs involving the genitourinary system Category: Medical (2) Lower urinary tract symptoms: Code(s): R39.9 - Unspecified symptoms and signs involving the genitourinary system Category: Medical (3) Dysuria: Code(s): R30.0 - Dysuria Category: Medical Plan In office urinalysis results reviewed with the patient today; as noted above. PVR 0 mL. Patient reports lower urinary tract symptoms she had been experiencing has since subsided. She currently denies any bothersome urinary issues or concerns. Discussed, educated, and stressed the importance of adequate hydration relation to lower urinary tract symptoms as well as overall health and well-being. Discussed UTI prevention. Discussed bladder triggers/irritants. Follow-up in 3 months with PVR; or sooner with any issues, concerns, and or questions. Orders: Orders AMB Urinalysis Automated Today Z13.9 - Encounter for screening, unspecified AMB Post Void Residual by ultrasound Today N39.0 - Urinary tract infection, site not specified Patient Instructions: The patient had an opportunity to ask questions regarding the treatment plan. All questions were answered. Physical exam, labs, and imaging were discussed and reviewed in detail. As well as risks, benefits, and discussion of treatment choices. No major barriers to understanding were identified. The patient expressed understanding and agreement with the above treatment plan. The patient was made aware they should contact our office by phone for worsening of their current condition, the appearance of new symptoms, or with any questions or concerns. Compliance is encouraged with any medications and follow up testing that is ordered. It is a privilege to be allowed the opportunity to participate in? your urological care.? Again, if you have any questions or concerns If you have any questions or concerns please do not hesitate to contact me. The office is [phone]. This note is constructed using voice recognition software. While every effort has been made to ensure accuracy iron worker foreman errors may have been included. Yours sincerely, LUIS E Pagan Coding Level of Care Code Est Pt Level 3 (79228) Complex EM visit Add On G2211 Diagnoses Sensation of pressure in bladder area R39.89 Lower urinary tract symptoms R39.9 Dysuria R30.0 CPT Codes Post Residual Void - PVR CPT Code: 00607-Fgvm Void Residual by ultrasound ([id number])
== END 2024-07-22 15:03 | disposition home or self-care (01) ==
PROVIDERS: PCP Internal Medicine; Visit Provider Nurse Practitioner Family
DX: R39.89 Other symptoms and signs involving the genitourinary system (principal); R39.9 Unspecified symptoms and signs involving the genitourinary system; R30.0 Dysuria; Z13.9 Encounter for screening, unspecified
CPT/HCPCS: 99213; G2211

== ENCOUNTER → 2024-07-22 14:25 | Outpatient (BNVA) | payer OTHER, SELFPAY ==
[2024-07-16 09:49] VITALS: BP 96/60; BP 96/66; BMI 22.5
== END ==
PROVIDERS: PCP Internal Medicine; Visit Provider Nurse Practitioner Family
DX: R39.89 Other symptoms and signs involving the genitourinary system (principal); R39.9 Unspecified symptoms and signs involving the genitourinary system; R30.0 Dysuria
CPT/HCPCS: 51798; 81003; 99212

== ENCOUNTER 2024-08-04 08:27 | Outpatient (AMB) | payer OTHER, SELFPAY ==
[2024-07-16 09:49] VITALS: BP 96/60; BP 96/66; BMI 22.5
--- NOTE | 2024-08-04 08:29 | MHC.OFFVIS ---
Vital Signs 08/04/24 08:32 08/04/24 09:27 Height 4 ft 10 in Weight 91 lb BMI 19.0 BP 83/61 L 99/63 Blood Pressure Location Lt brachial Lt brachial Position Sitting Sitting Pulse 93 80 Intake Visit Reasons: ABD PAIN Intake Note: Patient follow up for for Abdominal pain Patient cc: abdominal pain/bloating, GERD with burning sensation and cough, shocking sensation, weight loss, dizziness, and constipation. Also patient asking for Hpylori test to be done due her symptoms. Internetworking Technician Required: No Accompanied by: Self / Same As Patient Allergies methylprednisolone Allergy (Severe, Verified 08/04/24 08:29) Rash from Solu-Medrol shellfish derived Allergy (Intermediate, Verified 08/04/24 08:29) Hives etanercept [From Enbrel] Adverse Reaction (Severe, Verified 08/04/24 08:29) Facial Swelling metformin Adverse Reaction (Severe, Verified 08/04/24 08:29) Diarrhea metronidazole [From FLAGYL] Adverse Reaction (Severe, Verified 08/04/24 08:29) Diarrhea prednisone Adverse Reaction (Intermediate, Verified 08/04/24 08:29) hallucinations, more than 20 mg doses Medication List - Last Reconciled 08/04/24 by Ruth oRman MD albuterol sulfate 90 mcg/actuation 2 inhalations inhalation Q4H PRN aspirin 81 mg PO DAILY 90 days blood sugar diagnostic (FreeStyle Lite Strips) Use 1 test strip three times a day [clamp on tub safety rail As directed] dulaglutide (Trulicity) 1.5 mg (0.5 mL) subcut TH@0900 [ez residential substance abuse counselor bed assist support As directed] famotidine 20 mg PO BEDTIME 90 days fcoqgenyjcc-ejylpsbvi-xzhpadgj 200-62.5-25 mcg (Trelegy Ellipta) 1 ea inhalation DAILY folic acid 1 mg PO DAILY lancets (FreeStyle Lancets) Use 1 lancet once a day letrozole 2.5 mg PO DAILY lisinopril 5 mg PO DAILY methotrexate sodium 15 mg (6 x 2.5 mg) PO QWEEK ondansetron 4 mg PO Q8H PRN pen needle, diabetic (Comfort EZ Pen [place]) Use 1 pen needle 6 times a day prednisone 5 - 10 mg (1 - 2 x 5 mg) PO DAILY PRN pregabalin (Lyrica) 200 mg PO BID Shower Chair As directed simethicone 125 mg PO DAILY PRN trazodone 100 mg PO BEDTIME 90 days walker with seat HPI HPI ABD PAIN: Details: GI CLINIC VISIT FOR THIS 63-YEAR-OLD FEMALE FOR FU OF GERD AND DYSPHAGIA PT IS KNOWN TO ME FROM PAST GI VISITS FOR COLITIS SEEN ON CT SCAN AND FOR POSITIVE HEP A AB (IG M) 04/15/24 Pt had Hand assisted laparoscopic sigmoid colectomy with colorectal anastomosis by Dr Rodriguez HAD BRONCHOSCOPY ON 08/16? , FOUND TO HAVE GENERALIZED INFLAMMATION.? AND ENDOBRONCHIAL LESION IN THE RIGHT LOWER LOBE WAS SUSPECTED. BIOPSY AND CYTOLOGY IS CONSISTENT WITH MILD INFLAMMATORY CHANGES, NO METAPLASIA NEOPLASTIC CELLS. TODAY'S VISIT: Patient cc: abdominal pain/bloating, GERD with burning sensation and cough, shocking sensation, weight loss, dizziness, and constipation. Also patient wanted to be tested for H Pylori Noted nausea and decreased appetite with wt loss Ran out of Pantoprazole and forgot to refill it Having symptoms of regurgitation and heartburn and taking Famotidine. Stopped Lisinopril and feels a little better. Notes dizziness - states she has been drinking fluids - takes 1.5 litres of water daily. Has been constipated and has been taking Senna Took Senna plus and it helps intermittently Smokes 4 cigg/day and trying to cut back Unable to tolerate Chantix PAST VISITS: Pt states abdominal pain has resolved. Continues to have constipation - pt states its better Has a BM once a day with hard stools - planning to start taking Senna for constipation Unable to regain the wt she lost. Has been eating though not a lot. Taking Boost twice a day. Patient follow up from ED due bloody diarrhea. Patient cc: abdominal pain, nauseas, diarrhea, swallowing problems with sticky food and her saliva. I am in pain with nausea and diarrhea. Stomach really hurts Taking mesalamine 3 tablets daily Noted diarrhea since last night - 2 BMs last night and one this am. Had hard stools prior to that. Prescribed Trulance and was not covered by her insurance. Has a BM once a week when she is constipated. Started on MTX 15 mg once a week for RA by her Cake Icer And Packer I havent been feeling good since I left the hospital Generalized body aches, diarrhea and constipation. Has constipation for a week and then diarrhea for 2 days. Taking Amitiza daily for constipation. Seen by Fitting Room Operator and was told she had stage 3 kidney disease Lab results reviewed - IBD serology suggestive of Crohn's disease Pt seen at [facility] ED on 05/16/23 with chest pain and dubois was negative. Pt is on sulfasalazine for RA which is on hold to see if nausea gets better. 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 Unable to take biologics for RA due to COPD. Tried Humira and had to be stopped due to facial swelling. Tried Embril and was stopped due to worsening COPD. She was told by her Cake Icer And Packer that she is unable to use biologics Wt loss from 140 in Dec, 2021 to 115 lbs since she is eating less. Hospitalized with NSTEMI in Dec, 2021 and had 2 stents. Taking aspirin and Brilinta twice a day Had an MRI on the brain and changes noted on the right and left side Waiting to see a Neurologist. Has COPD and asthma. Patient denies known family history of colon polyps or colon cancer IMAGING STUDIES:? 10/15/23 GASTRIC EMPTYING STUDY SHOWED: 1 hour 64% (normal 37%-90%) 2 hours 50% (normal 30%-60%) 3 hours 33% 4 hours 13% (normal 0%-10%) NM/FL gastric emptying study IMPRESSION: Abnormal grade 1 delayed 4 hour gastric emptying study. US WITH DUPLEX: Elevated velocity in the proximal superior mesenteric artery is nonspecific. By velocity criteria, this is consistent with hemodynamically significant stenosis. However, the distal waveforms are not indicative of significant upstream disease and there is no significant stenosis seen on CT from 02/01/2023. 10/2022 BARIUM SWALLOW SHOWED:Following oral administration of thick, thin barium and barium-coatedturkey in upright view, there is normal propagation of bolus from the oral cavity through the pharynx, esophagus into stomach without obstruction, narrowing or stricture. There is mild prominence of cricoesophageal sphincter indenting the upper esophagus. There is mild ventral spondylosis at the C5-C6 and C6-C7 disc levels with minimal indentation on the posterior cervical esophageal wall. However, there is no obstruction. On oral administration of barium tablet, there is transient holdup in the mid esophagus and slightly longer in the distal esophagus. 02/21/22 ABD US SHOWED: 1.? Increased hepatic echogenicity suggesting hepatic steatosis. 2.? Nonobstructive calculus in the right renal lower pole measuring 3 mm. 02/[address] SCAN SHOWED:A cause for the patient's diffuse abdominal pain has not been found.Incidental note made of: 1.? Hepatic steatosis. 2.? Small stable adrenal nodule, unchanged over many years 3.? Status post hysterectomy. 08/[address] SCAN SHOWED:Mild bowel wall thickening of the sigmoid colon which could be due to mild colitis. There is no surrounding pericolonic edema however. There is no bowel obstruction. ENDOSCOPIC STUDIES: 12/12/23 FLEX SIG SHOWED: Flexible sigmoidoscopy Findings: Friable appearing mucosa with patchy erythema in the left colon without ulcerations - random biopsies were obtained. cw resolving colitis No polyps were detected. Moderate diverticulosis seen in the left colon No blood seen in the left colon during sigmoidoscopy Plan: Above findings were reviewed with the patient. BIOPSIES SHOWED: Colon, left, biopsy: Colonic mucosa with lamina propria hemorrhage, partial surface epithelial loss, and scattered neutrophils consistent with active colitis (see comment). Comment: The differential includes infectious, early ischemia, drugs, diverticular disease, and early Crohn's. There is no evidence of chronic colitis, granulomas or dysplasia 05/2023 CAPSULE ENDOSCOPY SHOWED: Findings: Lower esophagus looked normal, stomach with granular mucosa and patchy erythema consistent with chronic gastritis small bowel entered at 2 hr 36 min min. Mucosa well visualized and appeared normal, no masses, lesions or ulcers seen. cecum entered at 4 hr 44 min and colonic mucosa looked normal Conclusion: chronic gastritis, other santiago neg small bowel study 06/15/22 EGD SHOWED:ESOPHAGUS: Tortuous esophagus with increased tertiary contractions without stricture or ring.?GE junction at 36 cms. No esophagitis or Austin's.STOMACH: Moderate diffuse gastric erythema - no ulcers were seen. Biopsies were obtained from gastric antrum and body. DUODENUM: Normal - biopsied to check for celiac sprue Plan:? Further evaluation with a Duplex US to rule out small bowel ischemia Scroggins of Dicyclomine prn while awaiting further workup. BIOPSIES SHOWED: A.? Small bowel, biopsy:? Small bowel mucosa with preserved villi and no specific change; no evidence of celiac disease. B.? Gastric antrum, biopsy:? Chronic Helicobacter gastritis with minimal activity and focal intestinal metaplasia; negative for dysplasia.? C.? Gastric body, biopsy:? Chronic Helicobacter gastritis with minimal activity; negative for intestinal metaplasia and dysplasia. 03/24/21 COLONOSCOPY SHOWED: No polyps were detected.Random biopsies were obtained from the right and left colon Moderate to severe diverticulosis seen in the entire colonOf note pt denies additional episodes of fecal incontinence. Plan:? Patient has an appointment on 04/20/21 in the GI Clinic with Ruth Roman M.D. Repeat Colonoscopy in 10 years if biopsies are normal. A handout on diverticulosis was were given in the discharge area BIOPSIES SHOWED: A.? Colon, right, biopsy:? Colonic mucosa within normal limits. B.? Colon, left, biopsy:? Colonic mucosa within normal limits. COMMENT: Diagnostic features of microscopic colitis are not seen. 08/2019:? Colonoscopy Findings:Edema, erythema with friable appearing mucosa and scattered ulcerations from 10to 30 cms - random biopsies obtained. Colon inflammation can be due to ischemiccolitis or stercoral ulcers related to constipation and irritation of the colon from hard stools. No polyps were detected Moderate to severe diverticulosis seen in the left colon. Plan: Await pathology results. Regular diet today. Start Miralax once daily for constipation. Continue IV antibiotics x 24 hours and then switch to PO antibiotics in the am for another 3 days. Patient to be scheduled for a FU appointment in the GI Clinic with Ruth Roman M.D. in 1-2 weeks. Above findings were reviewed with the patient. BIOPSIES SHOWED: Colon, left, biopsies: Colonic mucosa with focal superficial epithelial sloughing, hemorrhage and hyalinization possibly representing early ischemic colitis;? negative for dysplasia/malignancy. [facility] Medical History (Updated 08/04/24 @ 09:13 by Ruth Roman MD) GERD (gastroesophageal reflux disease) Diverticulitis large intestine care home (current) use 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 Acute respiratory distress Tendonitis of ankle or foot Cough Stable angina Anxiety CAD (coronary artery disease) HLD (hyperlipidemia) HTN (hypertension) COPD exacerbation Hyperkalemia Atherosclerotic cardiovascular disease Hospital discharge follow-up Colitis CVA (cerebral vascular accident) (~2018) Breast pain, right Rash Bloody diarrhea PAD (peripheral artery disease) Hyperlipidemia LDL goal <100 COPD (chronic obstructive pulmonary disease) Infiltrating ductal carcinoma of left breast, stage 2 Insomnia Dyslipidemia Bipolar 1 disorder, depressed Cough Restrictive airway disease Hypothyroid IDDM (insulin dependent diabetes mellitus) Vitamin D deficiency Osteoporosis Breast cancer Hyperparathyroidism Thyroid nodule T2DM (type 2 diabetes mellitus) Depression Fibromyalgia Seropositive rheumatoid arthritis Reactive airways dysfunction syndrome Allergic rhinitis Irritable bowel Anxiety Bronchial asthma Diabetes type 2, uncontrolled Surgical History S/P laparoscopic colectomy (04/15/24) Hx of sigmoidoscopy History of bronchoscopy Hx of endoscopy H/O cardiac catheterization History of lumpectomy of left breast History of pubovaginal sling History of esophagogastroduodenoscopy (EGD) History of tubal ligation History of colonoscopy History of bunionectomy of both great toes H/O: hysterectomy Family History Mother Diabetes HTN (hypertension) Uterus cancer Malignant tumor of head Breast cancer Father Diabetes HTN (hypertension) CVD (cardiovascular disease) Heart problem Maternal Aunt Breast cancer Brother Myocardial infarction S/P CABG x 4 Family/Other FH: mental illness Family/Other Lung cancer Other Mental health disorder Social History Household Members: Family Household Members Other:: sister Housing: House Are you a primary home care provider to a significant other at home: No Do you presently have visiting nurse or other home services: No Unable to assess alcohol history related to: Unknown Alcohol intake: never Comment: Low fall Patient Tobacco Use Status: Current everyday Tobacco user Tobacco use type: Cigarette Cigarette Packs Per Day: 0.5 Cigarettes Per Day: 3 Years Smoked: 48 e-Cigarette/Vaping Use: Never Used Second Hand Smoke Exposure: No Substance Use Type: Marijuana Advance Directives Date on File: 12/22/21 service: No Current occupational status: disabled Current occupation: rt handed Cognitive needs: No Hearing needs: No Vision needs: Yes Review of Systems Const All systems reviewed & are unremarkable except as noted in HPI and below Physical Exam Vital Signs: Last Vital Signs Pulse 80 08/04/24 09:27 BP 99/63 08/04/24 09:27 BMI result Body Mass Index 19.0 Const General: healthy appearing and no acute distress Nutritional Appearance: underweight Orientation/consciousness: patient oriented x3 Limitations: no limitations HEENT Head: Yes normal to inspection Ears: hearing grossly normal bilaterally Eyes Sclerae: sclerae normal Pupils: Equal, round and reactive pupils present Neck Neck: Yes normal visual inspection Chest Chest palpation & inspection: normal inspection of the chest Resp Effort & Inspection: normal respiratory effort Auscultation: clear to auscultation bilaterally Cardio Palpation: normal PMI Rate: regular rate Rhythm: regular rhythm Heart sounds: S1 normal heart sound present, S2 normal heart sound present and no murmurs GI Palpation (GI): Soft to palpation, nontender and No hepatosplenomegaly present Auscultation: normal bowel sounds Rectal Exam - Female: deferred Skin General skin exam: no rashes or lesions noted Neuro General: patient oriented x3, gait normal and moves all extremities Cranial nerves: Yes Equal, round and reactive pupils present Psych Appearance: grossly normal Mental Status: mental status grossly normal Quality Reporting (2019) Adult ([facility] 138[address]/09/69) Smoking risk assessment performed?: Yes Patient Tobacco Use Status: Current everyday Tobacco user Assessment & Plan Assessment & Plan (1) History of ischemic colitis: Code(s): Z87.19 - Personal history of other diseases of the digestive system Category: Medical (2) History of Helicobacter pylori infection: Code(s): Z86.19 - Personal history of other infectious and parasitic diseases Category: Medical (3) Colitis: Code(s): K52.9 - Noninfective gastroenteritis and colitis, unspecified Category: Medical (4) Gastroparesis: Code(s): K31.84 - Gastroparesis Category: Medical (5) GERD (gastroesophageal reflux disease): Code(s): K21.9 - Gastro-esophageal reflux disease without esophagitis Category: Medical Plan 63 YF with rheumatoid arthritis--Halista @ [facility]-discharged, COPD, fibromyalgia, asthma, Elevated levels of transaminases? & lactic acid dehydrogenase, Hepatic steatosis Thalamic pain syndrome,? H. pylori infection - treated, IBS (irritable bowel syndrome), TIA'S, urinary incontinence, chronic bronchitis, anxiety, depression, diabetes mellitus, left breast? cancer. Patient followed in GI for GERD and long standing constipation?likely due to IBS with constipation/ slow transit due to medications. Partial? improvement with Senna 1-2 tablet at? bedtime. Patient was diagnosed with Helicobacter pylori gastritis on EGD in?06/2018 and was treated with triple therapy. 06/2021 FU stool antigen for H pylori was negative Pt was advised to start Pantoprazole twice daily for GERD She has a hx of dysphagia likely due to esophageal motility disorder - no stricture or EOE noted on past EGD. Pt has been followed recently for upper abdominal pain, nausea and vomiting with decreased PO intake and wt loss 06/15/22 EGD was performed in findings as noted above Pt was advised to use a Foam Wedge at night and take famotidine at bedtime for nighttime reflux symptoms. If symptoms persist she may need further evaluation with Esophageal manometry and pH testing prior to considering fundoplication. 01/10/23 Pt seen with worsening symptoms, stopped taking Pantoprazole 2 months ago and advised to resume and take Famotidine prn for breakthrough symptoms 02/01/23 Pt complains of abd pain, bloating with diarrhea and black stools x past 3 days with weakness and dizziness Patient was advised to go to [facility] ER for further evaluation with labs and repeat CT scan (for Fu of ischemic colitis) Pt had a stable Hct and stool occult blood was negative 04/05/23 Pt advised to have labs and schedule an abd US with doppler to rule out mesenteric ischemia which was negative Stool calprotectin was borderline at 92. C1q, C1 estrase inhibitor protein and C4 were normal 04/29/23 IBD serologies were suggestive of Crohn's disease 06/03/23 Capsule Endoscopy showed: Conclusion: chronic gastritis, other santiago neg small bowel study . 08/16/23 Pt advised to start Lialda 2.4 grams daily for suspected Crohn's disease (Abd pain, nausea, fecal calprotectin of 92 and IBD serologies positive for Crohn's disease) Referral was sent to urology for follow-up of kidney stones Records requested from [facility] ER visit on 08/10/23 09/19/23 Continues to have nausea, bloating, gas and poor appetite Notes early satiety and denies vomiting. Hx of long standing DM. Pt advised to increase Amitiza to 16 mcg twice a day and to schedule a GES 01/23/24 Prescribed Trulance and was not covered by her insurance. Has a BM once a week when she is constipated. Started on MTX 15 mg once a week for RA by her Cake Icer And Packer which should help her Crohn's disease Complains of pain and tinging in her left foot and has a FU appt with her PCP on 01/29/24 06/04/24 Notes resolution of abdominal pain after hand assisted laparoscopic sigmoid colectomy with colorectal anastomosis Continues to have constipation and planning to start Senna 08/04/24 Pt advised to resume Pantoprazole 40 mg daily Increase fluid intake H Pylori breath test today Continue to work on quitting smoking Pt has a FU appt on 09/24/24 Orders: Orders H Pylori Breath Test Today Medications: New pantoprazole 40 mg PO DAILY 90 tabs 1RF 90 days K21.9 - Gastro-esophageal reflux disease without esophagitis Coding Level of Care Code Est Pt Level 4 (25839) Diagnoses History of ischemic colitis Z87.19 History of Helicobacter pylori infection Z86.19 Colitis K52.9 Gastroparesis K31.84 Gastroesophageal reflux disease without esophagitis K21.9 Time Spent (min) 21
[2024-08-04 08:32] VITALS: BP 83/61; PULSE 93; BMI 19.0
[2024-08-04 09:27] VITALS: BP 99/63; PULSE 80
== END 2024-08-04 09:52 | disposition home or self-care (01) ==
PROVIDERS: PCP Internal Medicine; Visit Provider Internal Medicine Gastroenterology
DX: Z87.19 Personal history of other diseases of the digestive system (principal); Z86.19 Personal history of other infectious and parasitic diseases; K52.9 Noninfective gastroenteritis and colitis, unspecified; K31.84 Gastroparesis; K21.9 Gastro-esophageal reflux disease without esophagitis
CPT/HCPCS: 99214

== ENCOUNTER 2024-08-04 08:27 | Outpatient (REF) | payer OTHER, SELFPAY ==
[2024-07-16 09:49] VITALS: BP 96/60; BP 96/66; BMI 22.5
[2024-08-05 14:57] LABS: H Pylori Breath Test Positive (Negative)
== END 2024-08-04 08:28 | disposition home or self-care (01) ==
LOC: HO.LNP 08:27
PROVIDERS: PCP Internal Medicine; Visit Provider Internal Medicine Gastroenterology
DX: K52.9 Noninfective gastroenteritis and colitis, unspecified (principal); K31.84 Gastroparesis; R10.9 Unspecified abdominal pain; K21.9 Gastro-esophageal reflux disease without esophagitis; K59.00 Constipation, unspecified; R42 Dizziness and giddiness; R63.4 Abnormal weight loss; R11.0 Nausea; Z86.19 Personal history of other infectious and parasitic diseases; Z87.19 Personal history of other diseases of the digestive system
CPT/HCPCS: 83013; 99212

== ENCOUNTER 2024-09-21 09:55 | Outpatient (AMB) | payer OTHER, MEDICAID, SELFPAY ==
[2024-07-16 09:49] VITALS: BP 96/60; BP 96/66; BMI 22.5
[2024-09-21 10:01] VITALS: BP 110/70; PULSE 95; BMI 20.5
--- NOTE | 2024-09-21 10:01 | MHC.OFFVIS ---
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 Required: No Accompanied by: Self / Same As Patient Allergies methylprednisolone Allergy (Severe, Verified 08/04/24 08:29) Rash from Solu-Medrol shellfish derived Allergy (Intermediate, Verified 08/04/24 08:29) Hives etanercept [From Enbrel] Adverse Reaction (Severe, Verified 08/04/24 08:29) Facial Swelling metformin Adverse Reaction (Severe, Verified 08/04/24 08:29) Diarrhea metronidazole [From FLAGYL] Adverse Reaction (Severe, Verified 08/04/24 08:29) Diarrhea prednisone Adverse Reaction (Intermediate, Verified 08/04/24 08:29) hallucinations, more than 20 mg doses Medication List - Last Reconciled 09/21/24 by Joseph Salmon MD albuterol sulfate 90 mcg/actuation 2 inhalations inhalation Q4H PRN aspirin 81 mg PO DAILY 90 days blood sugar diagnostic (FreeStyle Lite Strips) Use 1 test strip three times a day [clamp on tub safety rail As directed] dulaglutide (Trulicity) 1.5 mg (0.5 mL) subcut TH@0900 [ez attendance secretary bed assist support As directed] famotidine 20 mg PO BEDTIME 90 days puryqazwdug-jhoghurok-fzsrhgyv 200-62.5-25 mcg (Trelegy Ellipta) 1 ea inhalation DAILY folic acid 1 mg PO DAILY lancets (FreeStyle Lancets) Use 1 lancet once a day letrozole 2.5 mg PO DAILY methotrexate sodium 15 mg (6 x 2.5 mg) PO QWEEK ondansetron 4 mg PO Q8H PRN pantoprazole 40 mg PO DAILY 90 days pen needle, diabetic (Comfort EZ Pen [place]) Use 1 pen needle 6 times a day pregabalin 200 mg PO BID Shower Chair As directed simethicone 125 mg PO DAILY PRN trazodone 100 mg PO BEDTIME 90 days walker with seat HPI Comments Details: 63-year-old female who has known history of coronary disease with previous PCI to left circumflex artery in December 2021, hypertension, hyperlipidemia, type 2 diabetes, COPD and fibromyalgia. She is returning for follow-up. She was seen last time with chest discomfort. There was some dyspnea on exertion also. She underwent stress echocardiogram which she was able to exercise to 7 metabolic equivalents without any EKG changes or wall motion abnormalities. 11/2022: Unfortunately had influenza in October and is recovering from that. Still having significant shortness of breath and continues to have mild wheezes. She just finished her prednisone taper yesterday. She is having upper abdominal pain. Denying any chest discomfort on follow-up. No peripheral edema. No obvious signs of heart failure. 06/10/23: She returns for follow-up. She is saying she has been experiencing significant shortness of breath and has been using the inhaler and nebulizers quite frequently. She also had some chest pain and went to emergency department and was ruled out. She has stress testing recently which was normal. She is saying that depending on whether her breathing changes. If it is humid and hot outside she gets really out of breath. She is still smoking 2 cigarettes per day. Overall from cardiovascular point of view she has stable angina and mostly has shortness of breath due to COPD. 09/23/23: She returns for follow-up. She underwent stress testing where she had hypotensive response to exercise. She was taken for cardiac catheterization which revealed stable disease with no significant LAD or RCA stenosis. Her previous circumflex stents were patent. She returns for follow-up and continues to smoke. She continues to have some sharp non anginal chest pains. She is following with pulmonology for COPD. She was on Wellbutrin which was stopped because she had history of seizures. We discussed about starting Chantix and she is agreeable. 01/27/2024: She returns for follow-up. She could not tolerate Chantix. She is still trying and is currently on 1 cigarette per day. She has Crohn's disease and has significant GI issues and unable to eat and drink well. She has been noticed to be tachycardic and and is saying that she is unable to eat and drink well. She will discuss this with GI. She also has left ankle pain and some burning sensation on the left calf. She also has a bandlike burning sensation in the thoracic region radiating to the front. No rashes noted by her. She has questions that are her symptoms due to amyloidosis as she has Googled her symptoms. She was reassured. 06/03/24: She is here for follow-up. She has restarted smoking unfortunately. Blood pressure control is good. Getting some reproducible left-sided chest pains off and on. She is asking whether she can have a lipid panel done. 09/21/24: Repeat cholesterol testing in 06/06/2024 showing total cholesterol 190, LDL 108, HDL 35 and triglycerides 239. After circumflex PCI she was started on statins but it appears she had GI upset after starting cardiovascular medicines and stopped taking the statins. She has not restarted statins since then. She was given lisinopril on last visit because blood pressure was elevated but is saying that she had nausea and GI upset and stopped taking lisinopril. Continues to smoke at this stage. We discussed about smoking cessation. [facility] Medical History (Updated 08/21/24 @ 15:13 by Ruth Roman MD) GERD (gastroesophageal reflux disease) Diverticulitis large intestine half-way (current) use 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 Acute respiratory distress Tendonitis of ankle or foot Cough Stable angina Anxiety CAD (coronary artery disease) HLD (hyperlipidemia) HTN (hypertension) COPD exacerbation Hyperkalemia Atherosclerotic cardiovascular disease Hospital discharge follow-up Colitis CVA (cerebral vascular accident) (~2018) Breast pain, right Rash Bloody diarrhea PAD (peripheral artery disease) Hyperlipidemia LDL goal <100 COPD (chronic obstructive pulmonary disease) Infiltrating ductal carcinoma of left breast, stage 2 Insomnia Dyslipidemia Bipolar 1 disorder, depressed Cough Restrictive airway disease Hypothyroid IDDM (insulin dependent diabetes mellitus) Vitamin D deficiency Osteoporosis Breast cancer Hyperparathyroidism Thyroid nodule T2DM (type 2 diabetes mellitus) Depression Fibromyalgia Seropositive rheumatoid arthritis Reactive airways dysfunction syndrome Allergic rhinitis Irritable bowel Anxiety Bronchial asthma Diabetes type 2, uncontrolled Surgical History S/P laparoscopic colectomy (04/15/24) Hx of sigmoidoscopy History of bronchoscopy Hx of endoscopy H/O cardiac catheterization History of lumpectomy of left breast History of pubovaginal sling History of esophagogastroduodenoscopy (EGD) History of tubal ligation History of colonoscopy History of bunionectomy of both great toes H/O: hysterectomy Family History Mother Diabetes HTN (hypertension) Uterus cancer Malignant tumor of head Breast cancer Father Diabetes HTN (hypertension) CVD (cardiovascular disease) Heart problem Maternal Aunt Breast cancer Brother Myocardial infarction S/P CABG x 4 Family/Other FH: mental illness Family/Other Lung cancer Other Mental health disorder Social History (Reviewed 09/21/24 @ 10:08 by Guera Ortiz [facility]) Household Members: Family Household Members Other:: sister Housing: House Are you a primary property caretaker to a significant other at home: No Do you presently have visiting nurse or other home services: No Unable to assess alcohol history related to: Unknown Alcohol intake: never Comment: Low fall Patient Tobacco Use Status: Current everyday Tobacco user Tobacco use type: Cigarette Cigarette Packs Per Day: 0.5 Cigarettes Per Day: 3 Years Smoked: 48 e-Cigarette/Vaping Use: Never Used Second Hand Smoke Exposure: No Substance Use Type: Marijuana Advance Directives Date on File: 12/22/21 service: No Current occupational status: disabled Current occupation: rt handed Cognitive needs: No Hearing needs: No Vision needs: Yes Review of Systems Const Denies chills, Denies fatigue, Denies fever(s), Denies frequent falls, Denies weakness, Denies weight gain and Denies weight loss ENT Denies dizziness Card Denies chest pain, Denies leg edema, Denies lightheadedness, Denies palpitations, Denies dyspnea and Denies dyspnea on exertion Resp Denies cough, Denies dyspnea and Denies dyspnea on exertion GI Denies hematochezia Musc Denies abnormal gait, Denies muscle weakness, Denies numbness, Denies radiating pain into limb and Denies tingling Neuro Denies abnormal gait, Denies dizziness, Denies frequent falls, Denies numbness, Denies tingling and Denies weakness Endo Denies fatigue and Denies palpitations Physical Exam Vital Signs: Last Vital Signs Pulse 95 09/21/24 10:01 BP 110/70 09/21/24 10:01 BMI result Body Mass Index 20.5 GENERAL APPEARANCE: in no acute distress, pleasant. NECK: no carotid bruit, no jugular venous distention. SKIN: no suspicious lesions, warm and dry. HEART: no murmurs, regular rate and rhythm. LUNGS: Lungs clear to auscultation. ABDOMEN: soft. EXTREMITIES: no edema. PERIPHERAL PULSES: equal. NEUROLOGIC: No gross deficits, AAO X 3 Quality Reporting (2019) Adult ([facility] 13801/09/69) Smoking risk assessment performed?: Yes Patient Tobacco Use Status: Current everyday Tobacco user Assessment & Plan Assessment & Plan (1) Hyperlipidemia LDL goal <100: Code(s): E78.5 - Hyperlipidemia, unspecified Category: Medical (2) PAD (peripheral artery disease): Code(s): I73.9 - Peripheral vascular disease, unspecified Category: Medical (3) H/O cardiac catheterization: Comment: 12/26/21 left main normal, lad mild luminal irregularities, less than 30%, mid LAD bridge, left circumflex proximal 80% stenosis SERENITY placed, left circumflex distal 70% stenosis SERENITY placed, RCA mild luminal irregularities, less than 30% Code(s): Z98.890 - Other specified postprocedural states Category: Surgical Plan Pleasant 64 year female who is here for follow-up. She has known history of coronary disease with previous circumflex PCI. She was started on statins in the past but had some GI upset which was unclear whether this is due to statins or other medicine which was started at that time. Since then she has stopped taking medicines. In any case I have discussed with her that given known history of coronary disease and diabetes she should be on statins and we should try a different statin at a lower dose. I am starting her on Crestor 20 mg daily. We will see if she can tolerate this dose. We will repeat lipid panel in 2 months. We discussed once again about smoking cessation. Blood pressure is well controlled although on last visit it was elevated and we added lisinopril but she could not tolerate it. She will follow-up with us in 4 months. Thank you for allowing me to participate in the care of your patient. Please feel free to contact me if you have any questions. Orders: Orders Lipid Panel 2 Months E78.5 - Hyperlipidemia, unspecified Medications: New rosuvastatin 20 mg PO DAILY 30 tabs 4RF E78.5 - Hyperlipidemia, unspecified Coding Level of Care Code Est Pt Level 4 (19210) Diagnoses Hyperlipidemia LDL goal <100 E78.5 PAD (peripheral artery disease) I73.9 H/O cardiac catheterization Z98.890
== END 2024-09-21 10:26 | disposition home or self-care (01) ==
PROVIDERS: PCP Internal Medicine; Visit Provider Internal Medicine Cardiovascular Disease
DX: E78.5 Hyperlipidemia, unspecified (principal); I73.9 Peripheral vascular disease, unspecified; Z98.890 Other specified postprocedural states
CPT/HCPCS: 99214

== ENCOUNTER → 2024-09-21 09:55 | Outpatient (BNVA) | payer OTHER, SELFPAY ==
[2024-07-16 09:49] VITALS: BP 96/60; BP 96/66; BMI 22.5
== END ==
PROVIDERS: PCP Internal Medicine; Visit Provider Internal Medicine Cardiovascular Disease
DX: I73.9 Peripheral vascular disease, unspecified (principal); E78.5 Hyperlipidemia, unspecified; Z98.890 Other specified postprocedural states
CPT/HCPCS: 99212

== ENCOUNTER 2024-09-24 08:03 | Outpatient (AMB) | payer OTHER, SELFPAY ==
[2024-07-16 09:49] VITALS: BP 96/60; BP 96/66; BMI 22.5
--- NOTE | 2024-09-24 08:12 | A.OFFVIS_ITS ---
Vital Signs 09/24/24 08:17 Height 4 ft 10 in Weight 99 lb BMI 20.7 BP 148/70 H Blood Pressure Location Lt brachial Position Sitting Pulse 101 H Intake Visit Reasons: 4 mnth follow up Intake Note: Patient follow up Constipation. Patient cc: constipation on and off, and swallowing problem and denies any other GI issues. Dyer Helper Required: No Accompanied by: Self / Same As Patient Allergies methylprednisolone Allergy (Severe, Verified 11/16/24 12:48) Rash from Solu-Medrol shellfish derived Allergy (Intermediate, Verified 11/16/24 12:48) Hives etanercept [From Enbrel] Adverse Reaction (Severe, Verified 11/16/24 12:48) Facial Swelling metformin Adverse Reaction (Severe, Verified 11/16/24 12:48) Diarrhea metronidazole [From FLAGYL] Adverse Reaction (Severe, Verified 11/16/24 12:48) Diarrhea prednisone Adverse Reaction (Intermediate, Verified 11/16/24 12:48) hallucinations, more than 20 mg doses Medication List - Last Reconciled 09/24/24 by Ruth Roman MD albuterol sulfate 90 mcg/actuation 2 inhalations inhalation Q4H PRN aspirin 81 mg PO DAILY 90 days blood sugar diagnostic (FreeStyle Lite Strips) Use 1 test strip three times a day [clamp on tub safety rail As directed] dulaglutide (Trulicity) 1.5 mg (0.5 mL) subcut TH@0900 [ez calibration tester bed assist support As directed] famotidine 20 mg PO BEDTIME 90 days edgdcnrekpl-itikctcdd-ubjyqzzw 200-62.5-25 mcg (Trelegy Ellipta) 1 ea inhalation DAILY folic acid 1 mg PO DAILY lancets (FreeStyle Lancets) Use 1 lancet once a day letrozole 2.5 mg PO DAILY methotrexate sodium 15 mg (6 x 2.5 mg) PO QWEEK ondansetron 4 mg PO Q8H PRN pantoprazole 40 mg PO DAILY 90 days pen needle, diabetic (Comfort EZ Pen Cloquet) Use 1 pen needle 6 times a day pregabalin 200 mg PO BID rosuvastatin 20 mg PO DAILY Shower Chair As directed simethicone 125 mg PO DAILY PRN trazodone 100 mg PO BEDTIME 90 days walker with seat HPI HPI 4 mnth follow up: Details: GI CLINIC VISIT FOR THIS 64-YEAR-OLD FEMALE FOR FU OF GERD AND DYSPHAGIA PT IS KNOWN TO ME FROM PAST GI VISITS FOR COLITIS SEEN ON CT SCAN AND FOR POSITIVE HEP A AB (IG M) 04/15/24 Pt had Hand assisted laparoscopic sigmoid colectomy with colorectal anastomosis by Dr Rodriguez HAD BRONCHOSCOPY ON 08/16? , FOUND TO HAVE GENERALIZED INFLAMMATION.? AND ENDOBRONCHIAL LESION IN THE RIGHT LOWER LOBE WAS SUSPECTED. BIOPSY AND CYTOLOGY IS CONSISTENT WITH MILD INFLAMMATORY CHANGES, NO METAPLASIA NEOPLASTIC CELLS. TODAY'S VISIT: Patient cc: constipation on and off, and swallowing problem and denies any other GI issues. 08/04/24 H Pylori breath test was positive and pt was treated with I feel great since the surgery - have been eating a little more. Finished antibiotics last week - Tetracycline and Levo Resumed MTX - noted pain in her knees and big toe while she was off the MTX. Constipated last week - forgot to go to the bathroom. Started taking the Senna twice a day - finally able to go after 3 days. PAST VISITS: Noted nausea and decreased appetite with wt loss Ran out of Pantoprazole and forgot to refill it Having symptoms of regurgitation and heartburn and taking Famotidine. Stopped Lisinopril and feels a little better. Notes dizziness - states she has been drinking fluids - takes 1.5 litres of water daily. Has been constipated and has been taking Senna Took Senna plus and it helps intermittently Smokes 4 cigg/day and trying to cut back Unable to tolerate Chantix Pt states abdominal pain has resolved. Continues to have constipation - pt states its better Has a BM once a day with hard stools - planning to start taking Senna for constipation Unable to regain the wt she lost. Has been eating though not a lot. Taking Boost twice a day. Patient follow up from ED due bloody diarrhea. Patient cc: abdominal pain, nauseas, diarrhea, swallowing problems with sticky food and her saliva. I am in pain with nausea and diarrhea. Stomach really hurts Taking mesalamine 3 tablets daily Noted diarrhea since last night - 2 BMs last night and one this am. Had hard stools prior to that. Prescribed Trulance and was not covered by her insurance. Has a BM once a week when she is constipated. Started on MTX 15 mg once a week for RA by her Residential Interior Designer I havent been feeling good since I left the hospital Generalized body aches, diarrhea and constipation. Has constipation for a week and then diarrhea for 2 days. Taking Amitiza daily for constipation. Seen by Hospice Clinical Manager and was told she had stage 3 kidney disease Lab results reviewed - IBD serology suggestive of Crohn's disease Pt seen at [facility] on 05/16/23 with chest pain and dubois was negative. Pt is on sulfasalazine for RA which is on hold to see if nausea gets better. 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 Unable to take biologics for RA due to COPD. Tried Humira and had to be stopped due to facial swelling. Tried Embril and was stopped due to worsening COPD. She was told by her Residential Interior Designer that she is unable to use biologics Wt loss from 140 in Dec, 2021 to 115 lbs since she is eating less. Hospitalized with NSTEMI in Dec, 2021 and had 2 stents. Taking aspirin and Brilinta twice a day Had an MRI on the brain and changes noted on the right and left side Waiting to see a Neurologist. Has COPD and asthma. Patient denies known family history of colon polyps or colon cancer IMAGING STUDIES:? 10/15/23 GASTRIC EMPTYING STUDY SHOWED: 1 hour 64% (normal 37%-90%) 2 hours 50% (normal 30%-60%) 3 hours 33% 4 hours 13% (normal 0%-10%) NM/NM gastric emptying study IMPRESSION: Abnormal grade 1 delayed 4 hour gastric emptying study. US WITH DUPLEX: Elevated velocity in the proximal superior mesenteric artery is nonspecific. By velocity criteria, this is consistent with hemodynamically significant stenosis. However, the distal waveforms are not indicative of significant upstream disease and there is no significant stenosis seen on CT from 02/01/2023. 10/2022 BARIUM SWALLOW SHOWED:Following oral administration of thick, thin barium and barium-coatedturkey in upright view, there is normal propagation of bolus from the oral cavity through the pharynx, esophagus into stomach without obstruction, narrowing or stricture. There is mild prominence of cricoesophageal sphincter indenting the upper esophagus. There is mild ventral spondylosis at the C5-C6 and C6-C7 disc levels with minimal indentation on the posterior cervical esophageal wall. However, there is no obstruction. On oral administration of barium tablet, there is transient holdup in the mid esophagus and slightly longer in the distal esophagus. 02/21/22 ABD US SHOWED: 1.? Increased hepatic echogenicity suggesting hepatic steatosis. 2.? Nonobstructive calculus in the right renal lower pole measuring 3 mm. 02/[address] SCAN SHOWED:A cause for the patient's diffuse abdominal pain has not been found.Incidental note made of: 1.? Hepatic steatosis. 2.? Small stable adrenal nodule, unchanged over many years 3.? Status post hysterectomy. 08/[address] SCAN SHOWED:Mild bowel wall thickening of the sigmoid colon which could be due to mild colitis. There is no surrounding pericolonic edema however. There is no bowel obstruction. ENDOSCOPIC STUDIES: 12/12/23 FLEX SIG SHOWED: Flexible sigmoidoscopy Findings: Friable appearing mucosa with patchy erythema in the left colon without ulcerations - random biopsies were obtained. cw resolving colitis No polyps were detected. Moderate diverticulosis seen in the left colon No blood seen in the left colon during sigmoidoscopy Plan: Above findings were reviewed with the patient. BIOPSIES SHOWED: Colon, left, biopsy: Colonic mucosa with lamina propria hemorrhage, partial surface epithelial loss, and scattered neutrophils consistent with active colitis (see comment). Comment: The differential includes infectious, early ischemia, drugs, diverticular disease, and early Crohn's. There is no evidence of chronic colitis, granulomas or dysplasia 05/2023 CAPSULE ENDOSCOPY SHOWED: Findings: Lower esophagus looked normal, stomach with granular mucosa and patchy erythema consistent with chronic gastritis small bowel entered at 2 hr 36 min min. Mucosa well visualized and appeared normal, no masses, lesions or ulcers seen. cecum entered at 4 hr 44 min and colonic mucosa looked normal Conclusion: chronic gastritis, other santiago neg small bowel study 06/15/22 EGD SHOWED:ESOPHAGUS: Tortuous esophagus with increased tertiary contractions without stricture or ring.?GE junction at 36 cms. No esophagitis or Austin's.STOMACH: Moderate diffuse gastric erythema - no ulcers were seen. Biopsies were obtained from gastric antrum and body. DUODENUM: Normal - biopsied to check for celiac sprue Plan:? Further evaluation with a Duplex US to rule out small bowel ischemia [facility] of Dicyclomine prn while awaiting further workup. BIOPSIES SHOWED: A.? Small bowel, biopsy:? Small bowel mucosa with preserved villi and no specific change; no evidence of celiac disease. B.? Gastric antrum, biopsy:? Chronic Helicobacter gastritis with minimal activity and focal intestinal metaplasia; negative for dysplasia.? C.? Gastric body, biopsy:? Chronic Helicobacter gastritis with minimal activity; negative for intestinal metaplasia and dysplasia. 03/24/21 COLONOSCOPY SHOWED: No polyps were detected.Random biopsies were obtained from the right and left colon Moderate to severe diverticulosis seen in the entire colonOf note pt denies additional episodes of fecal incontinence. Plan:? Patient has an appointment on 04/20/21 in the GI Clinic with Ruth Roman M.D. Repeat Colonoscopy in 10 years if biopsies are normal. A handout on diverticulosis was were given in the discharge area BIOPSIES SHOWED: A.? Colon, right, biopsy:? Colonic mucosa within normal limits. B.? Colon, left, biopsy:? Colonic mucosa within normal limits. COMMENT: Diagnostic features of microscopic colitis are not seen. 08/2019:? Colonoscopy Findings:Edema, erythema with friable appearing mucosa and scattered ulcerations from 10to 30 cms - random biopsies obtained. Colon inflammation can be due to ischemiccolitis or stercoral ulcers related to constipation and irritation of the colon from hard stools. No polyps were detected Moderate to severe diverticulosis seen in the left colon. Plan: Await pathology results. Regular diet today. Start Miralax once daily for constipation. Continue IV antibiotics x 24 hours and then switch to PO antibiotics in the am for another 3 days. Patient to be scheduled for a FU appointment in the GI Clinic with Ruth Roman M.D. in 1-2 weeks. Above findings were reviewed with the patient. BIOPSIES SHOWED: Colon, left, biopsies: Colonic mucosa with focal superficial epithelial sloughing, hemorrhage and hyalinization possibly representing early ischemic colitis;? negative for dysplasia/malignancy. [facility] Medical History (Updated 11/04/24 @ 08:47 by Adela Wasserman MD) NSTEMI (non-ST elevated myocardial infarction) GERD (gastroesophageal reflux disease) Diverticulitis large intestine long term care pharmacist (current) use 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 Acute respiratory distress Tendonitis of ankle or foot Cough Stable angina Anxiety CAD (coronary artery disease) HLD (hyperlipidemia) HTN (hypertension) COPD exacerbation Hyperkalemia Atherosclerotic cardiovascular disease Hospital discharge follow-up Colitis CVA (cerebral vascular accident) (~2018) Breast pain, right Rash Bloody diarrhea PAD (peripheral artery disease) Hyperlipidemia LDL goal <100 COPD (chronic obstructive pulmonary disease) Infiltrating ductal carcinoma of left breast, stage 2 Insomnia Dyslipidemia Bipolar 1 disorder, depressed Cough Restrictive airway disease Hypothyroid IDDM (insulin dependent diabetes mellitus) Vitamin D deficiency Osteoporosis Breast cancer Hyperparathyroidism Thyroid nodule T2DM (type 2 diabetes mellitus) Depression Fibromyalgia Seropositive rheumatoid arthritis Reactive airways dysfunction syndrome Allergic rhinitis Irritable bowel Anxiety Bronchial asthma Diabetes type 2, uncontrolled Surgical History S/P laparoscopic colectomy (04/15/24) Hx of sigmoidoscopy History of bronchoscopy Hx of endoscopy H/O cardiac catheterization History of lumpectomy of left breast History of pubovaginal sling History of esophagogastroduodenoscopy (EGD) History of tubal ligation History of colonoscopy History of bunionectomy of both great toes H/O: hysterectomy Family History Mother Diabetes HTN (hypertension) Uterus cancer Malignant tumor of head Breast cancer Father Diabetes HTN (hypertension) CVD (cardiovascular disease) Heart problem Maternal Aunt Breast cancer Brother Myocardial infarction S/P CABG x 4 Family/Other FH: mental illness Family/Other Lung cancer Other Mental health disorder Social History Household Members: Family Household Members Other:: sister Housing: House Are you a primary customer care manager to a significant other at home: No Do you presently have visiting nurse or other home services: No Unable to assess alcohol history related to: Unknown Alcohol intake: former Comment: Low fall Patient Tobacco Use Status: Former Tobacco user Tobacco use type: Cigarette Cigarette Packs Per Day: 0.5 Cigarettes Per Day: 3 Years Smoked: 48 e-Cigarette/Vaping Use: Never Used Second Hand Smoke Exposure: No Substance Use Type: Marijuana Advance Directives Date on File: 12/22/21 service: No Current occupational status: disabled Current occupation: rt handed Cognitive needs: No Hearing needs: No Vision needs: Yes Review of Systems Const All systems reviewed & are unremarkable except as noted in HPI and below Physical Exam Vital Signs: Last Vital Signs Pulse 101 H 09/24/24 08:17 BP 148/70 H 09/24/24 08:17 BMI result Body Mass Index 20.7 Const General: healthy appearing and no acute distress Nutritional Appearance: average body habitus Orientation/consciousness: patient oriented x3 Limitations: no limitations HEENT Head: Yes normal to inspection Ears: hearing grossly normal bilaterally Eyes Sclerae: sclerae normal Pupils: Equal, round and reactive pupils present Neck Neck: Yes normal visual inspection Chest Chest palpation & inspection: normal inspection of the chest Resp Effort & Inspection: normal respiratory effort Auscultation: clear to auscultation bilaterally Cardio Palpation: normal PMI Rate: regular rate Rhythm: regular rhythm Heart sounds: S1 normal heart sound present, S2 normal heart sound present and no murmurs GI Palpation (GI): Soft to palpation, nontender and No hepatosplenomegaly present Auscultation: normal bowel sounds Rectal Exam - Female: deferred Skin General skin exam: no rashes or lesions noted Neuro General: patient oriented x3, gait normal and moves all extremities Cranial nerves: Yes Equal, round and reactive pupils present Psych Appearance: grossly normal Mental Status: mental status grossly normal Quality Reporting (2019) Adult ([facility] 13801/09/69) Smoking risk assessment performed?: Yes Patient Tobacco Use Status: Current everyday Tobacco user Assessment & Plan Assessment & Plan (1) History of ischemic colitis: Code(s): Z87.19 - Personal history of other diseases of the digestive system Category: Medical (2) GERD (gastroesophageal reflux disease): Code(s): K21.9 - Gastro-esophageal reflux disease without esophagitis Category: Medical (3) Colitis: Code(s): K52.9 - Noninfective gastroenteritis and colitis, unspecified Category: Medical (4) Gastroparesis: Code(s): K31.84 - Gastroparesis Category: Medical (5) Helicobacter pylori infection: Code(s): A04.8 - Other specified bacterial intestinal infections Category: Medical Plan 64 YF with rheumatoid arthritis--Halista @ [facility] [place]-discharged, COPD, fibromyalgia, asthma, Elevated levels of transaminases? & lactic acid dehydrogenase, Hepatic steatosis Thalamic pain syndrome,? H. pylori infection - treated, IBS (irritable bowel syndrome), TIA'S, urinary incontinence, chronic bronchitis, anxiety, depression, diabetes mellitus, left breast? cancer. Patient followed in GI for GERD and long standing constipation?likely due to IBS with constipation/ slow transit due to medications. Partial? improvement with Senna 1-2 tablet at? bedtime. Patient was diagnosed with Helicobacter pylori gastritis on EGD in?06/2018 and was treated with triple therapy. 06/2021 FU stool antigen for H pylori was negative Pt was advised to start Pantoprazole twice daily for GERD She has a hx of dysphagia likely due to esophageal motility disorder - no stricture or EOE noted on past EGD. Pt has been followed recently for upper abdominal pain, nausea and vomiting with decreased PO intake and wt loss 06/15/22 EGD was performed in findings as noted above Pt was advised to use a Foam Wedge at night and take famotidine at bedtime for nighttime reflux symptoms. If symptoms persist she may need further evaluation with Esophageal manometry and pH testing prior to considering fundoplication. 01/10/23 Pt seen with worsening symptoms, stopped taking Pantoprazole 2 months ago and advised to resume and take Famotidine prn for breakthrough symptoms 02/01/23 Pt complains of abd pain, bloating with diarrhea and black stools x past 3 days with weakness and dizziness Patient was advised to go to [facility] ER for further evaluation with labs and repeat CT scan (for Fu of ischemic colitis) Pt had a stable Hct and stool occult blood was negative 04/05/23 Pt advised to have labs and schedule an abd US with doppler to rule out mesenteric ischemia which was negative Stool calprotectin was borderline at 92. C1q, C1 estrase inhibitor protein and C4 were normal 04/29/23 IBD serologies were suggestive of Crohn's disease 06/03/23 Capsule Endoscopy showed: Conclusion: chronic gastritis, other santiago neg small bowel study . 08/16/23 Pt advised to start Lialda 2.4 grams daily for suspected Crohn's disease (Abd pain, nausea, fecal calprotectin of 92 and IBD serologies positive for Crohn's disease) Referral was sent to urology for follow-up of kidney stones Records requested from [facility] ER visit on 08/10/23 09/19/23 Continues to have nausea, bloating, gas and poor appetite Notes early satiety and denies vomiting. Hx of long standing DM. Pt advised to increase Amitiza to 16 mcg twice a day and to schedule a GES 01/23/24 Prescribed Trulance and was not covered by her insurance. Has a BM once a week when she is constipated. Started on MTX 15 mg once a week for RA by her Residential Interior Designer which should help her Crohn's disease Complains of pain and tinging in her left foot and has a FU appt with her PCP on 01/29/24 06/04/24 Notes resolution of abdominal pain after hand assisted laparoscopic sigmoid colectomy with colorectal anastomosis Continues to have constipation and planning to start Senna 08/04/24 Pt advised to resume Pantoprazole 40 mg daily Increase fluid intake H Pylori breath test today Continue to work on quitting smoking 09/24/24 08/04/24 H Pylori breath test was positive and pt was treated with Bismuth, Tetracycline and Levofloxacin (Failed Calrithromycin) Finished antibiotics last week - Tetracycline and Levo Resumed MTX - noted pain in her knees and big toe while she was off the MTX. Constipated last week - forgot to go to the bathroom. Started taking the Senna twice a day - finally able to go after 3 days. FU in 4 months - has appt on 01/21/25 Coding Level of Care Code Est Pt Level 3 (71508) Diagnoses History of ischemic colitis Z87.19 Gastroesophageal reflux disease without esophagitis K21.9 Colitis K52.9 Gastroparesis K31.84 Helicobacter pylori infection A04.8 Time Spent (min) 18
[2024-09-24 08:17] VITALS: BP 148/70; PULSE 101; BMI 20.7
== END 2024-09-24 08:50 | disposition home or self-care (01) ==
LOC: HO.HGI 08:04
PROVIDERS: PCP Internal Medicine; Visit Provider Internal Medicine Gastroenterology
DX: Z87.19 Personal history of other diseases of the digestive system (principal); K21.9 Gastro-esophageal reflux disease without esophagitis; K52.9 Noninfective gastroenteritis and colitis, unspecified; K31.84 Gastroparesis; A04.8 Other specified bacterial intestinal infections
CPT/HCPCS: 99213

== ENCOUNTER → 2024-09-24 08:03 | Outpatient (BNVA) | payer OTHER, SELFPAY ==
[2024-07-16 09:49] VITALS: BP 96/60; BP 96/66; BMI 22.5
== END ==
PROVIDERS: PCP Internal Medicine; Visit Provider Internal Medicine Gastroenterology
DX: M05.9 Rheumatoid arthritis with rheumatoid factor, unspecified (principal); Z79.631 Long term (current) use of antimetabolite agent
CPT/HCPCS: 99212

== ENCOUNTER 2024-09-24 10:36 | Outpatient (AMB) | payer OTHER, MEDICAID, SELFPAY ==
[2024-07-16 09:49] VITALS: BP 96/60; BP 96/66; BMI 22.5
--- NOTE | 2024-09-24 10:43 | MHC.OFFVIS ---
Vital Signs 09/24/24 10:47 Height 4 ft 10 in Weight 99 lb 13.91 oz BMI 20.9 BP 100/70 Blood Pressure Location Lt brachial Position Sitting Pulse 106 H Pulse Source Pulse Oximeter Pulse Oximetry (%) 95 Oxygen Delivery Method Room Air Intake Visit Reasons: RA/cm Intake Note: Patient presents for RA. Allergies methylprednisolone Allergy (Severe, Verified 09/24/24 10:46) Rash from Solu-Medrol shellfish derived Allergy (Intermediate, Verified 09/24/24 10:46) Hives etanercept [From Enbrel] Adverse Reaction (Severe, Verified 09/24/24 10:46) Facial Swelling metformin Adverse Reaction (Severe, Verified 09/24/24 10:46) Diarrhea metronidazole [From FLAGYL] Adverse Reaction (Severe, Verified 09/24/24 10:46) Diarrhea prednisone Adverse Reaction (Intermediate, Verified 09/24/24 10:46) hallucinations, more than 20 mg doses Medication List - Last Reconciled 09/24/24 by Nelly Reyes MD albuterol sulfate 90 mcg/actuation 2 inhalations inhalation Q4H PRN aspirin 81 mg PO DAILY 90 days blood sugar diagnostic (FreeStyle Lite Strips) Use 1 test strip three times a day [clamp on tub safety rail As directed] dulaglutide (Trulicity) 1.5 mg (0.5 mL) subcut TH@0900 [ez metallurgist helper bed assist support As directed] famotidine 20 mg PO BEDTIME 90 days gzvcrbqeduf-dyvetsukt-gjaiuwza 200-62.5-25 mcg (Trelegy Ellipta) 1 ea inhalation DAILY folic acid 1 mg PO DAILY lancets (FreeStyle Lancets) Use 1 lancet once a day letrozole 2.5 mg PO DAILY methotrexate sodium 15 mg (6 x 2.5 mg) PO QWEEK ondansetron 4 mg PO Q8H PRN pantoprazole 40 mg PO DAILY 90 days pen needle, diabetic (Comfort EZ Pen [place]) Use 1 pen needle 6 times a day prednisone 5 mg PO DAILY pregabalin 200 mg PO BID rosuvastatin 20 mg PO DAILY Shower Chair As directed simethicone 125 mg PO DAILY PRN trazodone 100 mg PO BEDTIME 90 days walker with seat HPI Comments Details: This is a 64-year-old female with seropositive RA who presents for follow-up. Patient held her methotrexate for about 2 weeks and she was taking antibiotics. She just restarted it 3 days ago. She states that since holding her methotrexate she has been having multiple joint pain including her right shoulder, right index, right thumb and left thumb as well as the left knee and right big toe. [facility]LY [facility] Medical History GERD (gastroesophageal reflux disease) Diverticulitis large intestine [facility] (current) use 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 Acute respiratory distress Tendonitis of ankle or foot Cough Stable angina Anxiety CAD (coronary artery disease) HLD (hyperlipidemia) HTN (hypertension) COPD exacerbation Hyperkalemia Atherosclerotic cardiovascular disease Hospital discharge follow-up Colitis CVA (cerebral vascular accident) (~2018) Breast pain, right Rash Bloody diarrhea PAD (peripheral artery disease) Hyperlipidemia LDL goal <100 COPD (chronic obstructive pulmonary disease) Infiltrating ductal carcinoma of left breast, stage 2 Insomnia Dyslipidemia Bipolar 1 disorder, depressed Cough Restrictive airway disease Hypothyroid IDDM (insulin dependent diabetes mellitus) Vitamin D deficiency Osteoporosis Breast cancer Hyperparathyroidism Thyroid nodule T2DM (type 2 diabetes mellitus) Depression Fibromyalgia Seropositive rheumatoid arthritis Reactive airways dysfunction syndrome Allergic rhinitis Irritable bowel Anxiety Bronchial asthma Diabetes type 2, uncontrolled Surgical History S/P laparoscopic colectomy (04/15/24) Hx of sigmoidoscopy History of bronchoscopy Hx of endoscopy H/O cardiac catheterization History of lumpectomy of left breast History of pubovaginal sling History of esophagogastroduodenoscopy (EGD) History of tubal ligation History of colonoscopy History of bunionectomy of both great toes H/O: hysterectomy Family History Mother Diabetes HTN (hypertension) Uterus cancer Malignant tumor of head Breast cancer Father Diabetes HTN (hypertension) CVD (cardiovascular disease) Heart problem Maternal Aunt Breast cancer Brother Myocardial infarction S/P CABG x 4 Family/Other FH: mental illness Family/Other Lung cancer Other Mental health disorder Social History Household Members: Family Household Members Other:: sister Housing: House Are you a primary hospice home care coordinator to a significant other at home: No Do you presently have visiting nurse or other home services: No Unable to assess alcohol history related to: Unknown Alcohol intake: never Comment: Low fall Patient Tobacco Use Status: Current everyday Tobacco user Tobacco use type: Cigarette Cigarette Packs Per Day: 0.5 Cigarettes Per Day: 3 Years Smoked: 48 e-Cigarette/Vaping Use: Never Used Second Hand Smoke Exposure: No Substance Use Type: Marijuana Advance Directives Date on File: 12/22/21 service: No Current occupational status: disabled Current occupation: rt handed Cognitive needs: No Hearing needs: No Vision needs: Yes Review of Systems Musc Reports arthralgias, Reports joint swelling, Reports limited range of motion and Reports stiffness Physical Exam Vital Signs: Last Vital Signs Pulse 106 H 09/24/24 10:47 BP 100/70 09/24/24 10:47 Pulse Ox 95 09/24/24 10:47 Oxygen Delivery Method Room Air 09/24/24 10:47 BMI result Body Mass Index 20.9 Const General: cooperative, healthy appearing and comfortable Nutritional Appearance: thin Orientation/consciousness: patient oriented x3 Limitations: no limitations HEENT Head: Yes normocephalic and Yes atraumatic Mouth: moist mucous membranes Resp Effort & Inspection: normal respiratory effort and able to speak in complete sentences Skin General skin exam: no rashes or lesions noted Neuro General: patient oriented x3 Extrem Other: Minimal osteoarthritic changes of both hands Prominence of right 2nd MCP joint but no swelling. It was tender to palpation Right 1st MCP swelling and tenderness Left 1st MCP tenderness Limited range of motion of right shoulder with positive empty can test Right knee pain with full flexion-extension but no swelling or warmth detected Right big toe bunion that is tender to palpation, no swelling noted Quality Reporting (2019) Adult ([facility] [birth year]) Smoking risk assessment performed?: Yes Patient Tobacco Use Status: Current everyday Tobacco user Assessment & Plan Assessment & Plan (1) Seropositive rheumatoid arthritis: Comment: +++RF+++CCP dx around 1999 [place]: 04/2021- 06/2022- stopped due to severe COPD requiring long standing azithromycin Plaquenil: approx. 02/2021-May 2021 self stopped Enbrel: approx. 02/2021 ordered after cleared for hep A, stopped due to allergy Sulfasalazine: approx. 02/2019- 02/2021 - restarted 09/27/2022 -04/2023 stopped due to heaedache and nausea Methorexate: approx. 11/2016-12/2018 started in [facility]. Diagnosed with breast CA so methotrexate discontinued. Changed to sulfsalazine 500mg 2 tabs BID to prevent lung fibrosis as patient was receiving radiation therapy for her breast CA. Completed Radiation therapy February 2019. OnTamoxifen but had side effects so was started on Letrozole in May 2019. MTX restarted 02/2024 Xeljanz: approx. 03/2018-04/2018 Cimzia: aprrox.05/2017- did not take Humira: dates unknown Leflunomide: many years ago, then approx. 08/2020-02/2021 Code(s): M05.9 - Rheumatoid arthritis with rheumatoid factor, unspecified Category: Medical Plan: This is a 64-year-old female with seropositive RA who presents for follow-up. Patient held her methotrexate for 2 weeks as she was taking antibiotics. She just restarted it a couple of days ago. On exam she has multiple tender joints. Mild RA flare. 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
[2024-09-24 10:47] VITALS: BP 100/70; PULSE 106; O2SAT 95; BMI 20.9
== END 2024-09-24 11:06 | disposition home or self-care (01) ==
LOC: HO.RHE 10:37
PROVIDERS: PCP Internal Medicine; Visit Provider Student in an Organized Health Care Education/Training Program
DX: M05.79 Rheumatoid arthritis with rheumatoid factor of multiple sites without organ or systems involvement (principal); Z79.61 Long term (current) use 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
CPT/HCPCS: 99214

== ENCOUNTER 2024-09-24 11:15 | Outpatient (REF) | payer OTHER, SELFPAY ==
[2024-07-16 09:49] VITALS: BP 96/60; BP 96/66; BMI 22.5
[2024-09-24 11:57] LABS: MANUAL DIFF FLAG NO
[2024-09-24 12:51] LABS: Basophils Percent Auto 0.2 % (0-2); Eosinophils Absolute Auto 0.1 X10*3/uL (0.0-0.4); Eosinophils Percent Auto 0.9 % (0-4); Hematocrit 37.4 % (37.0-47.0); Hemoglobin 12.3 g/dl (12.0-16.0); Imm Gran Abs Auto 0.03 X10*3/uL (0.00-0.03); Imm Gran Pct Auto 0.3 % (0.0-0.4); Lymphocytes Absolute Auto 3.3 X10*3/uL (1.2-4.9); Lymphocytes Percent Auto 34.5 % (20-40); Mean Corpuscular HGB Conc 32.9 g/dl (31.0-35.0); Mean Corpuscular Hemoglobin 29.1 pg (27.0-33.0); Mean Corpuscular Volume 88.6 fL (80.0-98.0); Mean Platelet Volume 10.9 fL (9.4-12.3); Monocytes Absolute Auto 0.5 X10*3/uL (0.1-1.2); Monocytes Percent Auto 4.7 % (2-11); Neutrophils Absolute Auto 5.6 x10*3/uL (2.0-8.3); Neutrophils Percent Auto 59.4 % (45-73); Platelet Count 351 X10*3/uL (160-400); Red Blood Count 4.22 X10*6/uL (4.20-5.50); Red Cell Distribution Width 15.1 % (11.0-16.0); White Blood Count 9.5 X10*3/uL (4.8-10.8)
[2024-09-24 13:31] LABS: Alanine Aminotransferase 12 U/L (0-31); Albumin Level 3.7 g/dL (3.5-5.0); Alkaline Phosphatase 73 U/L (39-117); Anion Gap 11 (12-20); Aspartate Amino Transferase 23 U/L (5-31); Bilirubin Total 0.3 mg/dL (0.0-1.0); Blood Urea Nitrogen 14 mg/dL (9-16); C Reactive Protein 1.96 mg/dL (< or = 0.50); Carbon Dioxide 25 mmol/L (22-29); Chloride 108 mmol/L (96-108); Estimated Glomerular Filt Rate > 60; Glucose Random 115 mg/dL (60-115); Potassium 4.4 mmol/L (3.3-5.1); Sodium 140 mmol/L (135-145); Total Protein 6.9 g/dL (6.5-8.0)
[2024-09-24 13:33] LABS: Erythrocyte Sedimentation Rate 17 MM/HR (0-20)
== END 2024-09-24 11:16 | disposition home or self-care (01) ==
LOC: HO.LAB 11:15
PROVIDERS: PCP Internal Medicine; Visit Provider Student in an Organized Health Care Education/Training Program
DX: M05.9 Rheumatoid arthritis with rheumatoid factor, unspecified (principal); Z79.61 Long term (current) use 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
CPT/HCPCS: 36415; 80053; 85025; 85652; 86140; 99212

== ENCOUNTER 2024-10-06 13:17 | Emergency (ER) | payer OTHER, SELFPAY ==
[2024-07-16 09:49] VITALS: BP 96/60; BP 96/66; BMI 22.5
--- NOTE | ~2024-10-06 | XR_ITS ---
EXAMINATION: XR CHEST 2 VIEW CLINICAL INFORMATION: Cough, chest pain COMPARISON: 12/11/2023 TECHNIQUE: PA and lateral views of the chest obtained. FINDINGS: The lungs are clear. There are no pleural effusions. The cardiomediastinal silhouette is normal. XR/XR chest 2V IMPRESSION: No acute cardiopulmonary disease. Electronically signed by: Carlos Riggins MD 10/06/2024 02:26 PM [facility]
--- NOTE | ~2024-10-06 | CT_ITS ---
EXAMINATION: CT ANGIOGRAM CHEST, PE PROTOCOL CLINICAL INFORMATION: Chest pain, shortness of breath COMPARISON: None TECHNIQUE: Multidetector CT pulmonary angiography of the thorax was performed according to the pulmonary embolism protocol after intravenous administration of 65 mL of intravenous Omnipaque. Reformatted coronal and sagittal imaging was performed. 3-D MIP images performed at a dedicated separate workstation. This CT examination was performed using dose optimization techniques as appropriate, variously including the following: *Automated exposure control *Adjustment of mA and/or kV according to patient size (this includes techniques or standardized protocols for targeted exams where dose is matched to indication/reason for exam; i.e. extremities or head) *Use of iterative reconstruction technique DLP: 140 mGy-cm QUALITY: Overall Exam Quality: Poor. Pulmonary Arterial Enhancement: Suboptimal. Breath Hold: Adequate. Artifacts Impacting Image Quality: None. FINDINGS: VASCULAR: Heart: Normal in size. Coronary artery calcifications present. Aorta: No thoracoabdominal aortic aneurysm. Three vessel arch. Pulmonary Artery: No filling defect central pulmonary artery. Branches distal to this cannot be evaluated. NONVASCULAR: THORAX: Thyroid Gland: The visualized thyroid gland is normal. Lymph Nodes: No supraclavicular, axillary, mediastinal or hilar lymphadenopathy is identified. Airways: The trachea and central bronchi are normal. Lungs: No airspace consolidation. Upper lobe predominant tree-in-bud opacities and centrilobular nodules. Upper lobe predominant centrilobular emphysema. Pleura: No pleural effusion. No pneumothorax. Upper Abdomen: The visualized upper abdomen is unremarkable. Soft Tissues/Musculoskeletal: No acute fracture or significant focal lesion. CT/CT angio chest PE protocol IMPRESSION: Significantly limited study, nearly nondiagnostic. No acute embolus within the central pulmonary artery. More distal branches cannot be evaluated. Centrilobular emphysema and small airway disease. Fleischner guidelines were followed. Electronically signed by: Vladislav Navarro DO 10/06/2024 10:57 PM [facility]
--- NOTE | 2024-10-06 13:18 | ECG_ITS ---
Test Reason : CHEST PAIN Blood Pressure : / mmHG Vent. Rate : 109 BPM Atrial Rate : 109 BPM P-R Int : 128 ms QRS Dur : 082 ms QT Int : 322 ms P-R-T Axes : 083 080 063 degrees QTc Int : 433 ms Sinus tachycardia Otherwise normal ECG When compared with ECG of 04-JUN-2024 11:33, Vent. rate has increased BY 41 BPM Referred By: Generic ED Physician Electronically Signed By:MARIA ELENA APODACA MD
[2024-10-06 13:29] VITALS: BP 145/94; PULSE 114; RESP 18; TEMP 37.2; O2SAT 97; BMI 20.6
--- NOTE | 2024-10-06 13:30 | ED.CHESTPAIN ---
HPI - Chest Pain General Chief Complaint: Chest Pain Stated Complaint: Chest pain Time Seen by Provider: 10/06/24 21:22 Source: patient Mode of arrival: ambulatory Limitations: no limitations History of Present Illness ED Provider: collin COPPOLA narrative: Patient's history of rheumatoid arthritis coronary artery disease status post cardiac stent placement, hypertension complaining of mid chest pain since yesterday evening constant sharp and aching also complaining of headache pain gets worse on movements and cough no shortness a breath no fever no chills Related Data Home Medications ?Medication ?Instructions ?Recorded ?Confirmed albuterol sulfate 90 mcg/actuation 2 inh inhalation Q4H PRN Shortness 08/23/23 09/24/24 aerosol inhaler Of Breath Or Wheezing fluticasone fur. 200 mcg-umeclid 1 ea inhalation DAILY 02/06/24 09/24/24 62.5 mcg-vilant 25 mcg inhalat.powder (Trelegy Ellipta) Previous Rx's ?Medication ?Instructions ?Recorded lancets 28 gauge (FreeStyle #100 ea 06/07/22 Lancets) walker #1 ea 02/08/23 pen needle, diabetic 31 gauge x #200 ea 11/27/23/16 (Comfort EZ Pen [place]) letrozole 2.5 mg tablet 2.5 mg PO DAILY #90 tabs 12/19/23 dulaglutide 1.5 mg/0.5 mL 1.5 mg (0.5 mL) subcut TH@0900 #6 12/30/23 subcutaneous pen injector mL (Trulicity) Shower Chair #1 ea 01/15/24 clamp on tub safety rail #1 ea 01/15/24 ez white shoe ragger bed assist support #1 ea 01/15/24 famotidine 20 mg tablet 20 mg PO BEDTIME 90 days #90 tabs 01/31/24 ondansetron 4 mg disintegrating 4 mg PO Q8H PRN nausea and 02/19/24 tablet vomiting #20 tabs aspirin 81 mg tablet,delayed 81 mg PO DAILY 90 days #90 tabs 04/21/24 release simethicone 125 mg capsule 125 mg PO DAILY PRN gas pain #30 04/28/24 caps methotrexate sodium 2.5 mg tablet 15 mg (6 x 2.5 mg) PO QWEEK #72 06/09/24 tabs folic acid 1 mg tablet 1 mg PO DAILY #90 tabs 06/18/24 pantoprazole 40 mg tablet,delayed 40 mg PO DAILY 90 days #90 tabs 08/04/24 release pregabalin 200 mg capsule 200 mg PO BID #60 caps 08/17/24 trazodone 100 mg tablet 100 mg PO BEDTIME 90 days #90 tabs 09/18/24 rosuvastatin 20 mg tablet 20 mg PO DAILY #30 tabs 09/21/24 blood sugar diagnostic (FreeStyle #100 ea 09/23/24 Lite Strips) prednisone 5 mg tablet 5 mg PO DAILY #7 tabs 09/24/24 tramadol 50 mg tablet 50 mg PO Q6H PRN pain #20 tabs 10/06/24 Allergies Allergy/AdvReac Type Severity Reaction Status Date / Time methylprednisolone Allergy Severe Rash from Verified 10/06/24 13:31 Solu-Medrol shellfish derived Allergy Intermediate Hives Verified 09/24/24 10:46 etanercept [From Enbrel] AdvReac Severe Facial Verified 09/24/24 10:46 Swelling metformin AdvReac Severe Diarrhea Verified 09/24/24 10:46 metronidazole [From FLAGYL] AdvReac Severe Diarrhea Verified 09/24/24 10:46 prednisone AdvReac Intermediate hallucinations, Verified 09/24/24 10:46 more than 20 mg doses Review of Systems Review of Systems: Yes all other systems are reviewed and are negative PMFSH Past Medical History Medical History GERD (gastroesophageal reflux disease) Diverticulitis large intestine 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 Acute respiratory distress Tendonitis of ankle or foot Cough Stable angina Anxiety CAD (coronary artery disease) HLD (hyperlipidemia) HTN (hypertension) COPD exacerbation Hyperkalemia Atherosclerotic cardiovascular disease Hospital discharge follow-up Colitis CVA (cerebral vascular accident) (~2018) Breast pain, right Rash Bloody diarrhea PAD (peripheral artery disease) Hyperlipidemia LDL goal <100 COPD (chronic obstructive pulmonary disease) Infiltrating ductal carcinoma of left breast, stage 2 Insomnia Dyslipidemia Bipolar 1 disorder, depressed Cough Restrictive airway disease Hypothyroid IDDM (insulin dependent diabetes mellitus) Vitamin D deficiency Osteoporosis Breast cancer Hyperparathyroidism Thyroid nodule T2DM (type 2 diabetes mellitus) Depression Fibromyalgia Seropositive rheumatoid arthritis Reactive airways dysfunction syndrome Allergic rhinitis Irritable bowel Anxiety Bronchial asthma Diabetes type 2, uncontrolled Surgical History S/P laparoscopic colectomy (04/15/24) Hx of sigmoidoscopy History of bronchoscopy Hx of endoscopy H/O cardiac catheterization History of lumpectomy of left breast History of pubovaginal sling History of esophagogastroduodenoscopy (EGD) History of tubal ligation History of colonoscopy History of bunionectomy of both great toes H/O: hysterectomy Family History Family History Mother Diabetes HTN (hypertension) Uterus cancer Malignant tumor of head Breast cancer Father Diabetes HTN (hypertension) CVD (cardiovascular disease) Heart problem Maternal Aunt Breast cancer Brother Myocardial infarction S/P CABG x 4 Family/Other FH: mental illness Family/Other Lung cancer Other Mental health disorder Social History Social History Household Members: Family Household Members Other:: sister Housing: House Are you a primary rehab care assistant to a significant other at home: No Do you presently have visiting nurse or other home services: No Unable to assess alcohol history related to: Unknown Alcohol intake: never Comment: Low fall Patient Tobacco Use Status: Current everyday Tobacco user Tobacco use type: Cigarette Cigarette Packs Per Day: 0.5 Cigarettes Per Day: 3 Years Smoked: 48 e-Cigarette/Vaping Use: Never Used Second Hand Smoke Exposure: No Substance Use Type: Marijuana Advance Directives: Yes Advance Directives on File: Yes Advance Directives Date on File: 12/22/21 service: No Current occupational status: disabled Current occupation: rt handed Cognitive needs: No Hearing needs: No Vision needs: Yes Physical Exam Vital Signs: Vital Signs: Last Vital Signs Temp 98.5 F 10/06/24 22:39 Pulse 94 10/06/24 22:39 Resp 20 10/06/24 22:39 BP 129/75 10/06/24 22:39 Pulse Ox 96 10/06/24 22:39 O2 Del Method Room Air 10/06/24 22:39 BMI result Body Mass Index 20.6 Appearance: Alert. Oriented X3. No acute distress. Eyes: No pallor or icterus ENT: Pharynx normal. Oral Mucosa moist Neck: Normal inspection. Neck supple. CVS: Normal heart rate and rhythm. Pulses normal. Respiratory: No respiratory distress. Equal air entry bilateral, no wheezing/rales/rhonchi Abdomen: Soft and nontender. Bowel sounds are present, no mass palpable, no CVA tenderness Skin: Skin warm and dry. Normal skin color. Normal skin turgor. Extremities: No lower extremity edema. No calf tenderness Neuro: Oriented X 3. No motor deficit. Course Course Course Narrative: This is a Rapid Medical Examination (RME) performed by Romana Cleveland PA-C in triage. Full HPI, ROS, assessment and treatment plan per primary provider in the Main ED. 64 y/o female with hx NSTEMI, CAD s/p 2 stents, DM, COPD, HTN, HLD presents to the ER for evaluation of midsternal chest pain that radiates under her left breast and to her back. +cough, SOB, active smoker. follows w/ Dr. Grimaldo. Appears well in triage. RRR with coarse lungs on exam. Plan: cardiac workup Reevaluation(s) Reevaluation #1: trop negative x2. patient continues to c/o 7/10 chest pains, SOB and upper back pain. remains tachycardic. PIV placed and will get CTA chest to r/o PE. Time: 18:53 Medications Administered Discontinued Medications Generic Name Dose Route Start Last Admin Trade Name Eitanq PRN Reason Stop Dose Admin Acetaminophen 650 mg 10/06/24 21:51 10/06/24 22:07 Acetaminophen 325 Mg Tablet PO 10/06/24 21:52 650 mg ONCE ONE Administration Iohexol 65 ml 10/06/24 20:45 10/06/24 20:45 Iohexol 350 Mg/Ml 100 Ml Infus..Btl IV 10/06/24 20:46 65 ml ONCE ONE Administration Medical Decision Making Medical Decision Making [facility] Narrative: Patient with atypical chest pain for more than 24 hours 2 sets of cardiac negative CTA chest negative for PE history of arthritis the cause of the pain advised to continue her pain medication and tramadol Differential Diagnosis Differential Diagnoses: The differential diagnosis associated with the presentation includes ACS/PE/ Lab Data [facility] Lab Attestation statement: I reviewed the patient's lab results. 10/06/24 13:45 10/06/24 13:45 Labs: Lab Results 10/06/24 10/06/24 10/06/24 Range/Units 13:38 13:45 17:20 WBC 10.8 (4.8-10.8) X10*3/uL RBC 4.28 (4.20-5.50) X10*6/uL Hgb 12.6 (12.0-16.0) g/dl Hct 38.1 (37.0-47.0) % MCV 89.0 (80.0-98.0) fL MCH 29.4 (27.0-33.0) pg MCHC 33.1 (31.0-35.0) g/dl RDW 15.4 (11.0-16.0) % Plt Count 316 (160-400) X10*3/uL MPV 10.4 (9.4-12.3) fL Immature Gran % (Auto) 0.7 H (0.0-0.4) % Neut % (Auto) 69.0 (45-73) % Lymph % (Auto) 23.0 (20-40) % Cache % (Auto) 6.0 (2-11) % Eos % (Auto) 0.9 (0-4) % Baso % (Auto) 0.4 (0-2) % Lymph # (Auto) 2.5 (1.2-4.9) X10*3/uL Cache # (Auto) 0.7 (0.1-1.2) X10*3/uL Eos # (Auto) 0.1 (0.0-0.4) X10*3/uL Baso # (Auto) 0.0 (0.0-0.2) X10*3/uL Abs Immat Gran (auto) 0.08 H (0.00-0.03) X10*3/uL Absolute Neuts (auto) 7.4 (2.0-8.3) x10*3/uL Absolute Nucleated RBC 0.000 (0.0-0.012) X10*3/uL Nucleated RBC % (auto) 0.0 (0.0-0.2) /100WBC Sodium 139 (135-145) mmol/L Potassium 4.1 (3.3-5.1) mmol/L Chloride 105 (96-108) mmol/L Carbon Dioxide 26 (22-29) mmol/L Anion Gap 12 (12-20) BUN 10 (9-16) mg/dL Creatinine 0.88 (0.5-1.4) mg/dL Estim Creat Clear Calc 42.8 Estimated GFR > 60 Random Glucose 205 H (60-115) mg/dL Calcium 9.4 (8.4-10.2) mg/dL Magnesium 1.8 (1.6-2.6) mg/dL Total Bilirubin 0.3 (0.0-1.0) mg/dL Direct Bilirubin 0.1 (0.0-0.5) mg/dL AST 15 (5-31) U/L ALT 15 (0-31) U/L Alkaline Phosphatase 74 (39-117) U/L Troponin I High Sens < 2.7 D < 2.7 (<3.5-17.0) ng/L B-Natriuretic Peptide 12 (<100) pg/mL Total Protein 6.7 (6.5-8.0) g/dL Albumin 3.8 (3.5-5.0) g/dL Influenza Type A (PCR) NEGATIVE (Negative) Influenza Type B (PCR) NEGATIVE (Negative) RSV RNA Qual (PCR) NEGATIVE (Negative) SARS-CoV-2 RNA (RT-PCR) NEGATIVE (Negative) Independent Interpretation I performed an independent interpretation of an: EKG and CT Scan Interpretation: Sinus tachycardia with heart rate 109 beats per minute normal interval normal axis no acute ST-T no acute ischemia Radiology Impression Discussion of test interpretation with radiology: I have reviewed the radiologist's reading. Radiologist Impression: No PE Discharge Plan Discharge Clinical Impression: Chest pain Patient Disposition: Home, Self-Care Instructions: Chest Pain (ED) Additional Instructions: Your blood workup is negative for acute coronary event Continue your medications Take pain medication as prescribed Prescriptions: New tramadol 50 mg tablet 50 mg PO Q6H PRN (Reason: pain) Qty: 20 0RF No Action (DME) lancets [FreeStyle Lancets] 28 gauge misc See Rx Instructions .Route Qty: 100 3RF Rx Instructions: Use 1 lancet once a day (DME) walker Misc See Rx Instructions .Route Qty: 1 0RF Rx Instructions: with seat Trulicity 1.5 mg/0.5 mL pen injector 1.5 mg subcut TH@0900 Qty: 6 3RF (DME) Shower Chair Misc See Rx Instructions .Route Qty: 1 0RF Rx Instructions: As directed (DME) clamp on tub safety rail See Rx Instructions .Route .MEDSUPPLY Qty: 1 0RF Rx Instructions: As directed (DME) ez white shoe ragger bed assist support See Rx Instructions .Route .MEDSUPPLY Qty: 1 0RF Rx Instructions: As directed famotidine 20 mg tablet 20 mg PO BEDTIME 90 Days Qty: 90 1RF aspirin 81 mg tablet,delayed release (DR/EC) 81 mg PO DAILY 90 Days Qty: 90 1RF methotrexate sodium 2.5 mg tablet 15 mg PO QWEEK Qty: 72 1RF folic acid 1 mg tablet 1 mg PO DAILY Qty: 90 1RF pregabalin 200 mg capsule 200 mg PO BID Qty: 60 2RF trazodone 100 mg tablet 100 mg PO BEDTIME 90 Days Qty: 90 0RF (DME) FreeStyle Lite Strips Strip MISCELLANEOUS DAILY Qty: 100 1RF Rx Instructions: Use 1 test strip three times a day letrozole 2.5 mg Tablet 2.5 mg PO DAILY Qty: 90 3RF ondansetron 4 mg tablet,disintegrating 4 mg PO Q8H PRN (Reason: nausea and vomiting) Qty: 20 0RF (DME) pen needle, diabetic [Comfort EZ Pen [place]] 31 gauge x 5/16 needle See Rx Instructions .ROUTE .MEDSUPPLY Qty: 200 11RF Rx Instructions: Use 1 pen needle 6 times a day albuterol sulfate 90 mcg/actuation HFA aerosol inhaler 2 inh inhalation Q4H PRN (Reason: Shortness Of Breath Or Wheezing) prednisone 5 mg tablet 5 mg PO DAILY Qty: 7 0RF Rx Instructions: see taper instructions Trelegy Ellipta 200-62.5-25 mcg blister with device 1 ea inhalation DAILY simethicone 125 mg capsule 125 mg PO DAILY PRN (Reason: gas pain) Qty: 30 0RF rosuvastatin 20 mg tablet 20 mg PO DAILY Qty: 30 4RF pantoprazole 40 mg tablet,delayed release (DR/EC) 40 mg PO DAILY 90 Days Qty: 90 1RF Print Language: Latvian
[2024-10-06 13:51] LABS: MANUAL DIFF FLAG NO
[2024-10-06 13:56] LABS: Basophils Percent Auto 0.4 % (0-2); Eosinophils Absolute Auto 0.1 X10*3/uL (0.0-0.4); Eosinophils Percent Auto 0.9 % (0-4); Hematocrit 38.1 % (37.0-47.0); Hemoglobin 12.6 g/dl (12.0-16.0); Imm Gran Abs Auto 0.08 X10*3/uL (0.00-0.03); Imm Gran Pct Auto 0.7 % (0.0-0.4); Lymphocytes Absolute Auto 2.5 X10*3/uL (1.2-4.9); Mean Corpuscular HGB Conc 33.1 g/dl (31.0-35.0); Mean Corpuscular Hemoglobin 29.4 pg (27.0-33.0); Mean Platelet Volume 10.4 fL (9.4-12.3); Monocytes Absolute Auto 0.7 X10*3/uL (0.1-1.2); Neutrophils Absolute Auto 7.4 x10*3/uL (2.0-8.3); Platelet Count 316 X10*3/uL (160-400); Red Blood Count 4.28 X10*6/uL (4.20-5.50); Red Cell Distribution Width 15.4 % (11.0-16.0); White Blood Count 10.8 X10*3/uL (4.8-10.8)
[2024-10-06 14:11] LABS: Alanine Aminotransferase 15 U/L (0-31); Albumin Level 3.8 g/dL (3.5-5.0); Anion Gap 12 (12-20); Aspartate Amino Transferase 15 U/L (5-31); Bilirubin Direct 0.1 mg/dL (0.0-0.5); Bilirubin Total 0.3 mg/dL (0.0-1.0); Blood Urea Nitrogen 10 mg/dL (9-16); Calcium 9.4 mg/dL (8.4-10.2); Carbon Dioxide 26 mmol/L (22-29); Chloride 105 mmol/L (96-108); Creatinine Clr Calc Pharmacy 42.8; Estimated Glomerular Filt Rate > 60; Glucose Random 205 mg/dL (60-115); Magnesium 1.8 mg/dL (1.6-2.6); Potassium 4.1 mmol/L (3.3-5.1); Sodium 139 mmol/L (135-145); Total Protein 6.7 g/dL (6.5-8.0)
[2024-10-06 14:19] LABS: Troponin-I High Sensitivity < 2.7 ng/L (<3.5-17.0)
[2024-10-06 14:35] LABS: Influenza A PCR NEGATIVE (Negative); Influenza B PCR NEGATIVE (Negative); Resp Syncy Virus RNA Qual PCR NEGATIVE (Negative); SARS COV2 PCR INHOUSE NEGATIVE (Negative)
[2024-10-06 14:50] LABS: Alkaline Phosphatase 74 U/L (39-117)
[2024-10-06 16:29] LABS: B Type Natriuretic Peptide 12 pg/mL (<100)
[2024-10-06 17:51] LABS: Troponin-I High Sensitivity < 2.7 ng/L (<3.5-17.0)
[2024-10-06 18:52] VITALS: BP 134/83; PULSE 107; RESP 18; TEMP 37.1; O2SAT 96
[2024-10-06] MEDS: iohexoL 350 MG/ML 100 ML INFUS..BTL 65 ML IV (20:45)
[2024-10-06 20:53] VITALS: BP 139/86; PULSE 89; RESP 16; TEMP 37; O2SAT 97
[2024-10-06] MEDS: Acetaminophen 325 MG TABLET 650 MG PO (22:07)
[2024-10-06 22:39] VITALS: BP 129/75; PULSE 94; RESP 20; TEMP 36.9; O2SAT 96
[2024-10-06] MEDS: Ketorolac Tromethamine 30 MG/ML VIAL IVPUSH (23:22)
[2024-10-06 23:36] VITALS: BP 129/75; PULSE 94; RESP 20; TEMP 36.9; O2SAT 96
== END 2024-10-06 23:41 | disposition home or self-care (01) ==
PROVIDERS: Physician Assistant; Emergency Provider Internal Medicine; PCP Internal Medicine
DX: R07.9 Chest pain, unspecified (principal); R51.9 Headache, unspecified; R00.0 Tachycardia, unspecified; R06.02 Shortness of breath; R05.9 Cough, unspecified; Z03.818 Encounter for observation for suspected exposure to other biological agents ruled out; E11.9 Type 2 diabetes mellitus without complications; I10 Essential (primary) hypertension; E78.5 Hyperlipidemia, unspecified; F17.210 Nicotine dependence, cigarettes, uncomplicated; Z79.4 Long term (current) use of insulin; Z79.82 Long term (current) use of aspirin; Z79.02 Long term (current) use of antithrombotics/antiplatelets
CPT/HCPCS: 0241U; 36415; 71046; 71275; 80048; 80076; 83735; 83880; 84484; 85025; 93005; 96374; 99284; J1885; Q9967

== ENCOUNTER → 2024-10-06 13:18 | Outpatient (BNV) | payer OTHER, SELFPAY ==
[2024-07-16 09:49] VITALS: BP 96/60; BP 96/66; BMI 22.5
== END ==
PROVIDERS: Emergency Provider Internal Medicine; PCP Internal Medicine; Visit Provider Internal Medicine Cardiovascular Disease
DX: R00.0 Tachycardia, unspecified (principal)
CPT/HCPCS: 93010

== ENCOUNTER 2024-10-18 16:58 | Emergency (ER) | payer OTHER, SELFPAY ==
[2024-07-16 09:49] VITALS: BP 96/60; BP 96/66; BMI 22.5
--- NOTE | ~2024-10-18 | XR_ITS ---
EXAMINATION: XR CHEST CLINICAL INFORMATION: chest pain COMPARISON: 10/06/2024 TECHNIQUE: 2 views of the chest were obtained. FINDINGS: There is mild hyperexpansion of the lung parenchyma bilaterally. No developing infiltrates or pleural effusions. Cardiac silhouette is normal in size and configuration XR/XR chest 2V IMPRESSION: No acute process. Mild hyperexpansion of the lung parenchyma. Electronically signed by: Jadiel Carlos MD 10/18/2024 05:56 PM EST
--- NOTE | ~2024-10-18 | CT_ITS ---
EXAMINATION: CT HEAD WITHOUT CONTRAST CLINICAL INFORMATION: Severe headache COMPARISON: CT head March 25, 2024 TECHNIQUE: Contiguous axial imaging was performed from the skull base to vertex without intravenous administration of contrast. Coronal and sagittal reformatted images are performed at the CT scanner. This CT examination was performed using dose optimization techniques as appropriate, variously including the following: *Automated exposure control *Adjustment of mA and/or kV according to patient size (this includes techniques or standardized protocols for targeted exams where dose is matched to indication/reason for exam; i.e. extremities or head) *Use of iterative reconstruction technique DLP: 638 mGy-cm. FINDINGS: There is no evidence of acute intracranial hemorrhage or territorial infarction. No abnormal mass-effect or midline shift is seen. [place] to white matter differentiation is well preserved. No extra-axial fluid collections are identified. The ventricles are normal in size. There is no abnormal attenuation within the brain parenchyma. There is no osseous abnormality. The mastoid air cells and visualized portions of the paranasal sinuses are well-aerated. CT/CT head/brain wo IV con IMPRESSION: No acute intracranial pathology. Electronically signed by: Gilbert King MD 10/18/2024 09:45 PM [facility]
--- NOTE | 2024-10-18 16:58 | ECG_ITS ---
Test Reason : CHEST PAIN Blood Pressure : / mmHG Vent. Rate : 111 BPM Atrial Rate : 111 BPM P-R Int : 126 ms QRS Dur : 088 ms QT Int : 326 ms P-R-T Axes : 081 080 064 degrees QTc Int : 443 ms Sinus tachycardia Possible Left atrial enlargement Borderline ECG When compared with ECG of 06-OCT-2024 13:15, No significant change was found Referred By: Generic ED Physician Electronically Signed By:Joseph Salmon
[2024-10-18 17:05] VITALS: BP 166/91; PULSE 101; RESP 20; TEMP 36.8; O2SAT 97; BMI 20.5
--- NOTE | 2024-10-18 17:05 | ED.GENADULT ---
HPI - General Adult General Chief complaint: Headache Stated complaint: chest pain, jaw pain Time Seen by Provider: 10/18/24 18:30 Source: patient and family Mode of arrival: ambulatory Limitations: no limitations History of Present Illness ED Provider: HPI narrative: Patient's history of migraine headaches been having severe headache for last 3 days with nausea light sensitivity no fever no chills headache going to the jaw and chest also now no shortness a breath no diaphoresis patient took Fioricet without much relief Related Data Home Medications ?Medication ?Instructions ?Recorded ?Confirmed albuterol sulfate 90 mcg/actuation 2 inh inhalation Q4H PRN Shortness 08/23/23 09/24/24 aerosol inhaler Of Breath Or Wheezing fluticasone fur. 200 mcg-umeclid 1 ea inhalation DAILY 02/06/24 09/24/24 62.5 mcg-vilant 25 mcg inhalat.powder (Trelegy Ellipta) Previous Rx's ?Medication ?Instructions ?Recorded lancets 28 gauge (FreeStyle #100 ea 06/07/22 Lancets) walker #1 ea 02/08/23 pen needle, diabetic 31 gauge x #200 ea 11/27/23/16 (Comfort EZ Pen [place]) letrozole 2.5 mg tablet 2.5 mg PO DAILY #90 tabs 12/19/23 dulaglutide 1.5 mg/0.5 mL 1.5 mg (0.5 mL) subcut TH@0900 #6 12/30/23 subcutaneous pen injector mL (Trulicity) Shower Chair #1 ea 01/15/24 clamp on tub safety rail #1 ea 01/15/24 ez head waitress bed assist support #1 ea 01/15/24 famotidine 20 mg tablet 20 mg PO BEDTIME 90 days #90 tabs 01/31/24 ondansetron 4 mg disintegrating 4 mg PO Q8H PRN nausea and 02/19/24 tablet vomiting #20 tabs aspirin 81 mg tablet,delayed 81 mg PO DAILY 90 days #90 tabs 04/21/24 release simethicone 125 mg capsule 125 mg PO DAILY PRN gas pain #30 04/28/24 caps methotrexate sodium 2.5 mg tablet 15 mg (6 x 2.5 mg) PO QWEEK #72 06/09/24 tabs folic acid 1 mg tablet 1 mg PO DAILY #90 tabs 06/18/24 pantoprazole 40 mg tablet,delayed 40 mg PO DAILY 90 days #90 tabs 08/04/24 release pregabalin 200 mg capsule 200 mg PO BID #60 caps 08/17/24 trazodone 100 mg tablet 100 mg PO BEDTIME 90 days #90 tabs 09/18/24 rosuvastatin 20 mg tablet 20 mg PO DAILY #30 tabs 09/21/24 blood sugar diagnostic (FreeStyle #100 ea 09/23/24 Lite Strips) prednisone 5 mg tablet 5 mg PO DAILY #7 tabs 09/24/24 tramadol 50 mg tablet 50 mg PO Q6H PRN pain #20 tabs 10/06/24 vfnsvmfsxa-metifsqujzxrd-mbpvtair 1 tab PO Q6H PRN haeadace #20 tabs 10/18/24 50 mg-325 mg-40 mg tablet Allergies Allergy/AdvReac Type Severity Reaction Status Date / Time methylprednisolone Allergy Severe Rash from Verified 10/18/24 17:07 Solu-Medrol shellfish derived Allergy Intermediate Hives Verified 10/18/24 17:07 etanercept [From Enbrel] AdvReac Severe Facial Verified 10/18/24 17:07 Swelling metformin AdvReac Severe Diarrhea Verified 10/18/24 17:07 metronidazole [From FLAGYL] AdvReac Severe Diarrhea Verified 10/18/24 17:07 prednisone AdvReac Intermediate hallucinations, Verified 10/18/24 17:07 more than 20 mg doses Review of Systems Review of Systems: Yes all other systems are reviewed and are negative PMFSH Past Medical History Medical History GERD (gastroesophageal reflux disease) Diverticulitis 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) use 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 Acute respiratory distress Tendonitis of ankle or foot Cough Stable angina Anxiety CAD (coronary artery disease) HLD (hyperlipidemia) HTN (hypertension) COPD exacerbation Hyperkalemia Atherosclerotic cardiovascular disease Hospital discharge follow-up Colitis CVA (cerebral vascular accident) (~2018) Breast pain, right Rash Bloody diarrhea PAD (peripheral artery disease) Hyperlipidemia LDL goal <100 COPD (chronic obstructive pulmonary disease) Infiltrating ductal carcinoma of left breast, stage 2 Insomnia Dyslipidemia Bipolar 1 disorder, depressed Cough Restrictive airway disease Hypothyroid IDDM (insulin dependent diabetes mellitus) Vitamin D deficiency Osteoporosis Breast cancer Hyperparathyroidism Thyroid nodule T2DM (type 2 diabetes mellitus) Depression Fibromyalgia Seropositive rheumatoid arthritis Reactive airways dysfunction syndrome Allergic rhinitis Irritable bowel Anxiety Bronchial asthma Diabetes type 2, uncontrolled Surgical History S/P laparoscopic colectomy (04/15/24) Hx of sigmoidoscopy History of bronchoscopy Hx of endoscopy H/O cardiac catheterization History of lumpectomy of left breast History of pubovaginal sling History of esophagogastroduodenoscopy (EGD) History of tubal ligation History of colonoscopy History of bunionectomy of both great toes H/O: hysterectomy Family History Family History Mother Diabetes HTN (hypertension) Uterus cancer Malignant tumor of head Breast cancer Father Diabetes HTN (hypertension) CVD (cardiovascular disease) Heart problem Maternal Aunt Breast cancer Brother Myocardial infarction S/P CABG x 4 Family/Other FH: mental illness Family/Other Lung cancer Other Mental health disorder Social History Social History Household Members: Family Household Members Other:: sister Housing: House Are you a primary ocular care technician to a significant other at home: No Do you presently have visiting nurse or other home services: No Unable to assess alcohol history related to: Unknown Alcohol intake: former Comment: Low fall Patient Tobacco Use Status: Current everyday Tobacco user Tobacco use type: Cigarette Cigarette Packs Per Day: 0.5 Cigarettes Per Day: 3 Years Smoked: 48 Smoked in Last 30 Days: Yes e-Cigarette/Vaping Use: Never Used Second Hand Smoke Exposure: No Use of substances other than those prescribed or required for medical reasons: Yes Substance Use Type: Marijuana Substance Use Frequency: Occasionally Advance Directives: Yes Advance Directives on File: Yes Advance Directives Date on File: 12/22/21 Patient : No service: No Current occupational status: disabled Current occupation: rt handed Cognitive needs: No Hearing needs: No Vision needs: Yes Physical Exam ED Vital Signs: Vital Signs - 24 hr 10/18/24 17:05 10/18/24 19:24 10/18/24 20:01 Temperature 98.3 F 98.7 F Pulse Rate 101 H 69 Respiratory Rate 20 16 16 Blood Pressure 166/91 H 137/71 Pulse Oximetry 97 97 Oxygen Delivery Method Room Air Room Air 10/18/24 21:25 10/18/24 21:54 Temperature 98.2 F 98.2 F Pulse Rate 70 70 Respiratory Rate 16 16 Blood Pressure 131/85 131/85 Pulse Oximetry 96 96 Oxygen Delivery Method Room Air Room Air BMI result Body Mass Index 20.5 Appearance: Alert. Oriented X3. Moderate distress light sensitivity Eyes: PERRLA, No Nystagmus ENT: Pharynx normal. Oral Mucosa moist Neck: Normal inspection. Neck supple. CVS: Normal heart rate and rhythm. Pulses normal. Respiratory: No respiratory distress. Equal air entry bilateral, no wheezing/rales/rhonchi Abdomen: Soft and nontender. Bowel sounds are present, no mass palpable, no CVA tenderness Skin: Skin warm and dry. Normal skin color. Normal skin turgor. Extremities: No lower extremity edema. No calf tenderness Neuro: Oriented X 3. No motor deficit. No sensory deficit.No cerebellar signs , cranial nerves II-XII intact Course Course Course Narrative: RME performed by Elo Burks PA-C. Patient is a 64 year old assigned female at presenting to the emergency department with a headache and chest pain. Patient states that she took firocet but it did not help with the pain. Detailed physical exam and review of systems are deferred to the water pump operator. EKG, labs, imaging, and swabs ordered. Patient placed back in the waiting room pending room availability and results. Medications Administered Discontinued Medications Generic Name Dose Route Start Last Admin Trade Name Freq PRN Reason Stop Dose Admin Diphenhydramine HCl 25 mg 10/18/24 18:48 10/18/24 19:24 Diphenhydramine Hcl 50 Mg/Ml Vial IVPUSH 10/18/24 18:49 25 mg ONCE ONE Administration Sodium Chloride 1,000 mls @ 999 mls/hr 10/18/24 18:48 10/18/24 20:27 Ns IV 10/18/24 19:48 Infused .Q1H1M ONE Infusion Metoclopramide HCl 10 mg 10/18/24 18:48 10/18/24 19:24 Metoclopramide Hcl 10 Mg/2 Ml Vial IVPUSH 10/18/24 18:49 10 mg ONCE ONE Administration Morphine Sulfate 4 mg 10/18/24 18:59 12/01/24 19:24 Morphine Sulfate 4 Mg/Ml Cartridge IVPUSH 10/18/24 19:00 4 mg ONCE ONE Administration Protocol Medical Decision Making Medical Decision Making [facility] Narrative: Patient with complex migraine headache improved after IV Reglan morphine and Benadryl EKG without any ischemic changes 2 sets of cardiac enzymes negative for delta change discharge patient home on Fioricet, CT head negative Differential Diagnosis Differential Diagnoses: The differential diagnosis associated with the presentation includes Lab Data [facility] Lab Attestation statement: I reviewed the patient's lab results. 10/18/24 17:31 10/18/24 17:31 Labs: Lab Results 10/18/24 10/18/24 10/18/24 Range/Units 17:31 17:32 18:38 WBC 10.7 (4.8-10.8) X10*3/uL RBC 4.44 (4.20-5.50) X10*6/uL Hgb 13.1 (12.0-16.0) g/dl Hct 38.6 (37.0-47.0) % MCV 86.9 (80.0-98.0) fL MCH 29.5 (27.0-33.0) pg MCHC 33.9 (31.0-35.0) g/dl RDW 14.8 (11.0-16.0) % Plt Count 375 (160-400) X10*3/uL MPV 10.0 (9.4-12.3) fL Immature Gran % (Auto) 0.6 H (0.0-0.4) % Neut % (Auto) 70.9 (45-73) % Lymph % (Auto) 23.5 (20-40) % [place] % (Auto) 3.5 (2-11) % Eos % (Auto) 1.1 (0-4) % Baso % (Auto) 0.4 (0-2) % Lymph # (Auto) 2.5 (1.2-4.9) X10*3/uL [place] # (Auto) 0.4 (0.1-1.2) X10*3/uL Eos # (Auto) 0.1 (0.0-0.4) X10*3/uL Baso # (Auto) 0.0 (0.0-0.2) X10*3/uL Abs Immat Gran (auto) 0.06 H (0.00-0.03) X10*3/uL Absolute Neuts (auto) 7.6 (2.0-8.3) x10*3/uL Absolute Nucleated RBC 0.000 (0.0-0.012) X10*3/uL Nucleated RBC % (auto) 0.0 (0.0-0.2) /100WBC Sodium 140 (135-145) mmol/L Potassium 3.8 (3.3-5.1) mmol/L Chloride 107 (96-108) mmol/L Carbon Dioxide 25 (22-29) mmol/L Anion Gap 12 (12-20) BUN 13 (9-16) mg/dL Creatinine 0.84 (0.5-1.4) mg/dL Estim Creat Clear Calc 44.8 Estimated GFR > 60 Random Glucose 207 H (60-115) mg/dL Calcium 9.5 (8.4-10.2) mg/dL Magnesium 1.8 (1.6-2.6) mg/dL Total Bilirubin 0.3 (0.0-1.0) mg/dL AST 18 (5-31) U/L ALT 26 (0-31) U/L Alkaline Phosphatase 67 (39-117) U/L Troponin I High Sens 41.4 H D 40.4 H (<3.5-17.0) ng/L Total Protein 6.6 (6.5-8.0) g/dL Albumin 3.8 (3.5-5.0) g/dL Influenza Type A (PCR) NEGATIVE (Negative) Influenza Type B (PCR) NEGATIVE (Negative) RSV RNA Qual (PCR) NEGATIVE (Negative) SARS-CoV-2 RNA (RT-PCR) NEGATIVE (Negative) Independent Interpretation I performed an independent interpretation of an: EKG and CT Scan Interpretation: Sinus tachycardia heart rate of 111 beats per minute normal intervals normal axis no acute ST/T-wave changes Discharge Plan Discharge Clinical Impression: Migraine Patient Disposition: Home, Self-Care Instructions: Migraine Headache (ED) Additional Instructions: Fioricet for headache as prescribed Follow with your PCP Prescriptions: New vbmpsbqqie-vocbanzjtynon-pkkj 50-325-40 mg tablet 1 tab PO Q6H PRN (Reason: haeadace) Qty: 20 0RF No Action (DME) lancets [FreeStyle Lancets] 28 gauge misc See Rx Instructions .Route Qty: 100 3RF Rx Instructions: Use 1 lancet once a day (DME) walker Misc See Rx Instructions .Route Qty: 1 0RF Rx Instructions: with seat Trulicity 1.5 mg/0.5 mL pen injector 1.5 mg subcut TH@0900 Qty: 6 3RF (DME) Shower Chair Misc See Rx Instructions .Route Qty: 1 0RF Rx Instructions: As directed (DME) clamp on tub safety rail See Rx Instructions .Route .MEDSUPPLY Qty: 1 0RF Rx Instructions: As directed (DME) ez head waitress bed assist support See Rx Instructions .Route .MEDSUPPLY Qty: 1 0RF Rx Instructions: As directed famotidine 20 mg tablet 20 mg PO BEDTIME 90 Days Qty: 90 1RF aspirin 81 mg tablet,delayed release (DR/EC) 81 mg PO DAILY 90 Days Qty: 90 1RF methotrexate sodium 2.5 mg tablet 15 mg PO QWEEK Qty: 72 1RF folic acid 1 mg tablet 1 mg PO DAILY Qty: 90 1RF pregabalin 200 mg capsule 200 mg PO BID Qty: 60 2RF trazodone 100 mg tablet 100 mg PO BEDTIME 90 Days Qty: 90 0RF (DME) FreeStyle Lite Strips Strip MISCELLANEOUS DAILY Qty: 100 1RF Rx Instructions: Use 1 test strip three times a day letrozole 2.5 mg Tablet 2.5 mg PO DAILY Qty: 90 3RF ondansetron 4 mg tablet,disintegrating 4 mg PO Q8H PRN (Reason: nausea and vomiting) Qty: 20 0RF tramadol 50 mg tablet 50 mg PO Q6H PRN (Reason: pain) Qty: 20 0RF (DME) pen needle, diabetic [Comfort EZ Pen [place]] 31 gauge x 5/16 needle See Rx Instructions .ROUTE .MEDSUPPLY Qty: 200 11RF Rx Instructions: Use 1 pen needle 6 times a day albuterol sulfate 90 mcg/actuation HFA aerosol inhaler 2 inh inhalation Q4H PRN (Reason: Shortness Of Breath Or Wheezing) prednisone 5 mg tablet 5 mg PO DAILY Qty: 7 0RF Rx Instructions: see taper instructions Trelegy Ellipta 200-62.5-25 mcg blister with device 1 ea inhalation DAILY simethicone 125 mg capsule 125 mg PO DAILY PRN (Reason: gas pain) Qty: 30 0RF rosuvastatin 20 mg tablet 20 mg PO DAILY Qty: 30 4RF pantoprazole 40 mg tablet,delayed release (DR/EC) 40 mg PO DAILY 90 Days Qty: 90 1RF Interventions: ED Discharge Assessment Last Done: 10/18/24 21:54 Discharge Date/Time: 10/18/24 21:54 Print Language: Greenlandic
[2024-10-18 17:38] LABS: Basophils Percent Auto 0.4 % (0-2); Eosinophils Absolute Auto 0.1 X10*3/uL (0.0-0.4); Eosinophils Percent Auto 1.1 % (0-4); Hematocrit 38.6 % (37.0-47.0); Hemoglobin 13.1 g/dl (12.0-16.0); Imm Gran Abs Auto 0.06 X10*3/uL (0.00-0.03); Imm Gran Pct Auto 0.6 % (0.0-0.4); Lymphocytes Absolute Auto 2.5 X10*3/uL (1.2-4.9); Lymphocytes Percent Auto 23.5 % (20-40); MANUAL DIFF FLAG NO; Mean Corpuscular HGB Conc 33.9 g/dl (31.0-35.0); Mean Corpuscular Hemoglobin 29.5 pg (27.0-33.0); Mean Corpuscular Volume 86.9 fL (80.0-98.0); Monocytes Absolute Auto 0.4 X10*3/uL (0.1-1.2); Monocytes Percent Auto 3.5 % (2-11); Neutrophils Absolute Auto 7.6 x10*3/uL (2.0-8.3); Neutrophils Percent Auto 70.9 % (45-73); Platelet Count 375 X10*3/uL (160-400); Red Blood Count 4.44 X10*6/uL (4.20-5.50); Red Cell Distribution Width 14.8 % (11.0-16.0); White Blood Count 10.7 X10*3/uL (4.8-10.8)
[2024-10-18 17:52] LABS: Alanine Aminotransferase 26 U/L (0-31); Albumin Level 3.8 g/dL (3.5-5.0); Alkaline Phosphatase 67 U/L (39-117); Anion Gap 12 (12-20); Aspartate Amino Transferase 18 U/L (5-31); Bilirubin Total 0.3 mg/dL (0.0-1.0); Blood Urea Nitrogen 13 mg/dL (9-16); Calcium 9.5 mg/dL (8.4-10.2); Carbon Dioxide 25 mmol/L (22-29); Chloride 107 mmol/L (96-108); Creatinine Clr Calc Pharmacy 44.8; Estimated Glomerular Filt Rate > 60; Glucose Random 207 mg/dL (60-115); Magnesium 1.8 mg/dL (1.6-2.6); Potassium 3.8 mmol/L (3.3-5.1); Sodium 140 mmol/L (135-145); Total Protein 6.6 g/dL (6.5-8.0)
[2024-10-18 17:59] LABS: Troponin-I High Sensitivity 41.4 ng/L (<3.5-17.0)
[2024-10-18 18:36] LABS: Influenza A PCR NEGATIVE (Negative); Influenza B PCR NEGATIVE (Negative); Resp Syncy Virus RNA Qual PCR NEGATIVE (Negative); SARS COV2 PCR INHOUSE NEGATIVE (Negative)
[2024-10-18 19:02] LABS: Troponin-I High Sensitivity 40.4 ng/L (<3.5-17.0)
[2024-10-18 19:24] VITALS: RESP 16
[2024-10-18] MEDS: Metoclopramide HCl 10 MG/2 ML VIAL IVPUSH (19:24)
[2024-10-18] MEDS: Morphine Sulfate 4 MG/ML CARTRIDGE IVPUSH (19:24)
[2024-10-18] MEDS: diphenhydrAMINE HCL 50 MG/ML VIAL 25 MG IVPUSH (19:24)
[2024-10-18] MEDS: 0.9 % Sodium Chloride 1,000 ML 999 ML IV (19:25)
[2024-10-18 20:01] VITALS: BP 137/71; PULSE 69; RESP 16; TEMP 37.1; O2SAT 97
[2024-10-18 21:25] VITALS: BP 131/85; PULSE 70; RESP 16; TEMP 36.8; O2SAT 96
[2024-10-18 21:54] VITALS: BP 131/85; PULSE 70; RESP 16; TEMP 36.8; O2SAT 96
== END 2024-10-18 21:54 | disposition home or self-care (01) ==
PROVIDERS: Physician Assistant Medical; Emergency Provider Internal Medicine; PCP Internal Medicine
DX: G43.909 Migraine, unspecified, not intractable, without status migrainosus (principal); R07.89 Other chest pain; R00.0 Tachycardia, unspecified; R11.0 Nausea; I25.10 Atherosclerotic heart disease of native coronary artery without angina pectoris; F17.210 Nicotine dependence, cigarettes, uncomplicated; Z79.899 Other long term (current) drug therapy; Z03.818 Encounter for observation for suspected exposure to other biological agents ruled out
CPT/HCPCS: 0241U; 36415; 70450; 71046; 80053; 83735; 84484; 85025; 93005; 96361; 96374; 96375; 96376; 99284; 99285; J1200; J2270; J2765

== ENCOUNTER → 2024-10-18 16:58 | Outpatient (BNV) | payer OTHER, SELFPAY ==
[2024-07-16 09:49] VITALS: BP 96/60; BP 96/66; BMI 22.5
== END ==
PROVIDERS: Emergency Provider Internal Medicine; PCP Internal Medicine; Visit Provider Internal Medicine Cardiovascular Disease
DX: R00.0 Tachycardia, unspecified (principal)
CPT/HCPCS: 93010

== ENCOUNTER 2024-11-02 09:06 | Emergency (ER) | payer OTHER, SELFPAY ==
[2024-07-16 09:49] VITALS: BP 96/60; BP 96/66; BMI 22.5
[2024-11-02] VITALS (7 sets, daily range): BP systolic 103–125; BP diastolic 67–86; PULSE 71–77; RESP 12–18; TEMP 36.1–36.4; O2SAT 97–99
--- NOTE | ~2024-11-02 | CT_ITS ---
EXAMINATION: CT HEAD WITHOUT CONTRAST CLINICAL INFORMATION: Head trauma COMPARISON: 10/18/2024, 03/25/2024. TECHNIQUE: Contiguous axial imaging was performed from the skull base to vertex without intravenous administration of contrast. This CT examination was performed using dose optimization techniques as appropriate, variously including the following: *Automated exposure control *Adjustment of mA and/or kV according to patient size (this includes techniques or standardized protocols for targeted exams where dose is matched to indication/reason for exam; i.e. extremities or head) *Use of iterative reconstruction technique DLP: 669.5 mGy-cm FINDINGS: There is no evidence of intracranial hemorrhage or extra-axial fluid collection. There is no mass effect, or edema. No CT evidence of acute territorial infarct. Ventricles, sulci, and cisterns are normal in size and configuration for patient age. No hydrocephalus. No midline shift. Stable focus of encephalomalacia in medial left occipital lobe. White matter otherwise normal. Normal sella. Mild atheromatous calcification of the bilateral carotid siphons. Globes and orbital contents image normally. No extracranial soft tissue abnormalities. The paranasal sinuses, mastoid air cells, and tympanic cavities are normally aerated. No suspicious bony abnormalities. No fractures evident. CT/CT head/brain wo IV con IMPRESSION: 1. No acute intracranial abnormalities. 2. Stable focus of encephalomalacia left medial occipital lobe. Electronically signed by: Jose Costello MD 11/02/2024 02:20 PM SHRUTHI ALEGRE
--- NOTE | ~2024-11-02 | CT_ITS ---
EXAMINATION: CT ANGIOGRAM CHEST, PE STUDY CLINICAL INFORMATION: Chest pain and syncope. COMPARISON: CT chest October 06, 2024 TECHNIQUE: A noncontrast localizer was performed, followed by the administration of 65 mL Omnipaque [address] of the chest was then performed. Coronal and sagittal reformatted and 3-D technique MIP images of the chest were completed at the CT scanner and reviewed on the PACS workstation. No adverse effects were reported. [This CT examination was performed using dose optimization techniques as appropriate, variously including the following: *Automated exposure control *Adjustment of mA and/or kV according to patient size (this includes techniques or standardized protocols for targeted exams where dose is matched to indication/reason for exam; i.e. extremities or head) *Use of iterative reconstruction technique] DLP: 850 mGy-cm. FINDINGS: VASCULAR: The main pulmonary artery, secondary and tertiary branches of the pulmonary artery are normally opacified with no evidence of pulmonary embolism. The aorta and great vessels are unremarkable. MEDIASTINUM: No mediastinal mass. No significant lymphadenopathy. There is no pericardial effusion. CORONARY ARTERIES: Volume of coronary calcification:Small volume of coronary calcification. LUNGS: Mild centrilobular emphysematous change. No acute airspace disease. Central bronchial airways are open. Small band of linear scarring in the anterior right upper lobe. Small calcified granuloma in the left upper lobe. FLUID: There is no pericardial effusion. There is no pleural effusion. AXILLA: No significant lymphadenopathy. UPPER ABDOMEN: Adrenal glands normal. Visualized portions of liver and spleen unremarkable. SKELETAL: No suspicious focal bone finding. CT/CT angio chest PE protocol IMPRESSION: 1. No evidence of pulmonary embolism. 2. No acute abnormality CT scan chest. Electronically signed by: Gilbert King MD 11/02/2024 03:34 PM EST
--- NOTE | 2024-11-02 09:31 | ECG_ITS ---
Test Reason : CP Blood Pressure : / mmHG Vent. Rate : 077 BPM Atrial Rate : 077 BPM P-R Int : 146 ms QRS Dur : 080 ms QT Int : 360 ms P-R-T Axes : 080 077 -27 degrees QTc Int : 407 ms Normal sinus rhythm Nonspecific T wave abnormality Abnormal ECG When compared to the previous EKG of oct 18, 2024, Nonspecific ST and T wave abnormality present Referred By: Generic ED Physician Electronically Signed By:MICHELL MONTES
--- NOTE | 2024-11-02 09:35 | ED.GENADULT ---
HPI - General Adult General Chief complaint: General Medical Stated complaint: dizzy fainted Saturday Heart Attack 10/19 Time Seen by Provider: 11/02/24 09:32 Source: patient, EMS and old records reviewed Mode of arrival: EMS Limitations: no limitations History of Present Illness ED Provider: PRETTY COPPOLA narrative: 64 yo female with PMH of UTI, neuropathy, GERD, HTN, DM, NSTEMI, COPD, anxiety, HLD, bipolar seen 10/18 for headache and chest pain EKG and trop with no delta change at that time she was sent home and on 10/19 continued with chest pain went to [facility] 10/19 dx with STEMI PCI and stent to OM2 - now on brilinta, aspirin, metoprolol. She went home on 10/21. She notes Saturday she was cooking and felt very cold and flush her ears were ringing and she felt weak and fell to the ground sister and her report no LOC but she was out of it. Since then she has felt dizzy and vomiting - did have negative CT head 10/20 with [facility]. She notes she still feels tired and off since then reports L sided chest pain radiating to the back with inspiration. No fevers, cough, chills, they adamantly deny headstrike or any pain in the head today MD complaint: near syncope Onset (ago): day(s) (2) Location: chest Radiation: non-radiation Severity: mild Quality: aching Pain Consistency: constant Relieving factors: none Exacerbating factors: other (inspiration) Associated symptoms: chest pain, weakness and other (nausea, dizzines) Treatments prior to arrival: none Related Data Home Medications ?Medication ?Instructions ?Recorded ?Confirmed albuterol sulfate 90 mcg/actuation 2 inh inhalation Q4H PRN Shortness 08/23/23 10/26/24 aerosol inhaler Of Breath Or Wheezing fluticasone fur. 200 mcg-umeclid 1 ea inhalation DAILY 02/06/24 10/26/24 62.5 mcg-vilant 25 mcg inhalat.powder (Trelegy Ellipta) Previous Rx's ?Medication ?Instructions ?Recorded lancets 28 gauge (FreeStyle #100 ea 06/07/22 Lancets) walker #1 ea 02/08/23 pen needle, diabetic 31 gauge x #200 ea 01/10/24 5/16 (Comfort EZ Pen [place]) letrozole 2.5 mg tablet 2.5 mg PO DAILY #90 tabs 12/19/23 dulaglutide 1.5 mg/0.5 mL 1.5 mg (0.5 mL) subcut TH@0900 #6 12/30/23 subcutaneous pen injector mL (Trulicity) Shower Chair #1 ea 01/15/24 clamp on tub safety rail #1 ea 01/15/24 ez panel machine setter bed assist support #1 ea 01/15/24 famotidine 20 mg tablet 20 mg PO BEDTIME 90 days #90 tabs 01/31/24 ondansetron 4 mg disintegrating 4 mg PO Q8H PRN nausea and 02/19/24 tablet vomiting #20 tabs simethicone 125 mg capsule 125 mg PO DAILY PRN gas pain #30 04/28/24 caps methotrexate sodium 2.5 mg tablet 15 mg (6 x 2.5 mg) PO QWEEK #72 06/09/24 tabs pantoprazole 40 mg tablet,delayed 40 mg PO DAILY 90 days #90 tabs 08/04/24 release pregabalin 200 mg capsule 200 mg PO BID #60 caps 08/17/24 trazodone 100 mg tablet 100 mg PO BEDTIME 90 days #90 tabs 09/18/24 rosuvastatin 20 mg tablet 20 mg PO DAILY #30 tabs 09/21/24 blood sugar diagnostic (Grace #100 ea 09/23/24 Lite Strips) prednisone 5 mg tablet 5 mg PO DAILY #7 tabs 09/24/24 tramadol 50 mg tablet 50 mg PO Q6H PRN pain #20 tabs 10/06/24 tnarvggyqg-vedhjbsxsrvmu-upoacjdy 1 tab PO Q6H PRN haeadace #20 tabs 10/18/24 50 mg-325 mg-40 mg tablet aspirin 81 mg tablet,delayed 81 mg PO DAILY 90 days #90 tabs 10/19/24 release folic acid 1 mg tablet 1 mg PO DAILY #90 tabs 10/28/24 Allergies Allergy/AdvReac Type Severity Reaction Status Date / Time methylprednisolone Allergy Severe Rash from Verified 11/02/24 09:22 Solu-Medrol shellfish derived Allergy Intermediate Hives Verified 11/02/24 09:22 etanercept [From Enbrel] AdvReac Severe Facial Verified 11/02/24 09:22 Swelling metformin AdvReac Severe Diarrhea Verified 11/02/24 09:22 metronidazole [From FLAGYL] AdvReac Severe Diarrhea Verified 11/02/24 09:22 prednisone AdvReac Intermediate hallucinations, Verified 11/02/24 09:22 more than 20 mg doses Review of Systems Review of Systems: Constitutional : No Weight loss, No Fever, No Chills ENT/Mouth : No sore throat, No Rhinorrhea Eyes: No Eye Pain, No Swelling Cardiovascular : pos Chest Pain, pos SOB, no Dyspnea on Exertion, No Orthopnea, No Edema, No Palpitations Respiratory : No Cough, No Sputum Gastrointestinal : pos Nausea, No Vomiting, No Diarrhea, No abdominal Pain, No Hematochezia, No Melena Genitourinary : No Dysuria, No Urinary Frequency Musculoskeletal : No joint pain, No Myalgias, No Joint Swelling Skin : No Skin Lesions, No rash Neuro : No Weakness, No Numbness, pos Dizziness, No Headache Psych : No Anxiety/Panic, No Depression All other systems reviewed and are negative [facility] Past Medical History Attestation statement: The following information was validated with the patient. Source: old records reviewed Medical History GERD (gastroesophageal reflux disease) Diverticulitis large intestine FDC (current) use 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 Acute respiratory distress Tendonitis of ankle or foot Cough Stable angina Anxiety CAD (coronary artery disease) HLD (hyperlipidemia) HTN (hypertension) COPD exacerbation Hyperkalemia Atherosclerotic cardiovascular disease Hospital discharge follow-up Colitis CVA (cerebral vascular accident) (~2018) Breast pain, right Rash Bloody diarrhea PAD (peripheral artery disease) Hyperlipidemia LDL goal <100 COPD (chronic obstructive pulmonary disease) Infiltrating ductal carcinoma of left breast, stage 2 Insomnia Dyslipidemia Bipolar 1 disorder, depressed Cough Restrictive airway disease Hypothyroid IDDM (insulin dependent diabetes mellitus) Vitamin D deficiency Osteoporosis Breast cancer Hyperparathyroidism Thyroid nodule T2DM (type 2 diabetes mellitus) Depression Fibromyalgia Seropositive rheumatoid arthritis Reactive airways dysfunction syndrome Allergic rhinitis Irritable bowel Anxiety Bronchial asthma Diabetes type 2, uncontrolled Surgical History S/P laparoscopic colectomy (04/15/24) Hx of sigmoidoscopy History of bronchoscopy Hx of endoscopy H/O cardiac catheterization History of lumpectomy of left breast History of pubovaginal sling History of esophagogastroduodenoscopy (EGD) History of tubal ligation History of colonoscopy History of bunionectomy of both great toes H/O: hysterectomy Family History Family History Mother Diabetes HTN (hypertension) Uterus cancer Malignant tumor of head Breast cancer Father Diabetes HTN (hypertension) CVD (cardiovascular disease) Heart problem Maternal Aunt Breast cancer Brother Myocardial infarction S/P CABG x 4 Family/Other FH: mental illness Family/Other Lung cancer Other Mental health disorder Social History Social History Household Members: Family Household Members Other:: sister Housing: House Are you a primary career technical counselor to a significant other at home: No Do you presently have visiting nurse or other home services: No Unable to assess alcohol history related to: Unknown Alcohol intake: former Comment: Low fall Patient Tobacco Use Status: Current everyday Tobacco user Tobacco use type: Cigarette Cigarette Packs Per Day: 0.5 Cigarettes Per Day: 3 Years Smoked: 48 Smoked in Last 30 Days: Yes e-Cigarette/Vaping Use: Never Used Second Hand Smoke Exposure: No Use of substances other than those prescribed or required for medical reasons: No Substance Use Type: Marijuana Advance Directives: Yes Advance Directives on File: Yes Advance Directives Date on File: 12/22/21 Do you have a plan to hurt others: No Plan Patient : No service: No Current occupational status: disabled Current occupation: rt handed Cognitive needs: No Hearing needs: No Vision needs: Yes Physical Exam ED Vital Signs: Vital Signs - 24 hr 11/02/24 09:18 11/02/24 10:45 11/02/24 10:51 Temperature 97.6 F Pulse Rate 77 75 75 Respiratory Rate 18 14 Blood Pressure 103/74 120/72 Pulse Oximetry 98 97 Oxygen Delivery Method Room Air Room Air 11/02/24 10:52 11/02/24 10:54 11/02/24 15:27 Temperature 97.0 F Pulse Rate 77 75 71 Respiratory Rate 12 Blood Pressure 119/86 125/79 119/67 Pulse Oximetry 99 Oxygen Delivery Method Room Air BMI result Body Mass Index 20.0 Appearance: Alert. Oriented X3. No acute distress. Eyes: Pupils equal, round and reactive to light. ENT: Pharynx normal. Neck: Normal inspection. Neck supple. CVS: Normal heart rate and rhythm. Pulses normal. Respiratory: No respiratory distress. Breath sounds normal. Abdomen: Soft and nontender. Skin: Skin warm and dry. Normal skin color. Normal skin turgor. Extremities: No lower extremity edema. No calf ttp Neuro: Oriented X 3. No motor deficit. No sensory deficit. Course Course Course Narrative: neg ortho VS Reevaluation(s) Reevaluation #1: patient now reports to RN she might have injured her head will obtain CT scan given aspirin and brilinta use Reevaluation #2: up and walking no issues talking on phone feels good Reevaluation #3: small bump in LFTs no abdominal pain Additional Reevaluation(s): review of [facility] - t waves inf inversions present after cath Medications Administered Discontinued Medications Generic Name Dose Route Start Last Admin Trade Name Freq PRN Reason Stop Dose Admin Iohexol 65 ml 11/02/24 12:04 11/02/24 12:05 Iohexol 350 Mg/Ml 100 Ml Infus..Btl IV 11/02/24 12:05 65 ml ONCE ONE Administration Morphine Sulfate 4 mg 11/02/24 09:53 11/02/24 10:45 Morphine Sulfate 4 Mg/Ml Cartridge IVPUSH 11/02/24 09:54 4 mg ONCE ONE Administration Protocol Medical Decision Making Medical Decision Making [facility] Narrative: 64 yo female with PMH of UTI, neuropathy, GERD, HTN, DM, NSTEMI, COPD, anxiety, HLD, bipolar here with c/o near syncope on Saturday and since then has L sided chest pain worse with breathing - at this time she denies any headstrike. Given recent admission and her complaints will obtain labs, trop, EKG, ortho VS given new metoprolol use possible BP HR issue, CTA for PE given L sided chest pain and pleurisy. IV morphine for pain. Differential Diagnosis Differential Diagnoses: The differential diagnosis associated with the presentation includes VTE, orthostatics, anemia, dehydration no new headache or headstrike to suggest ICH or SAH, head injury with prodrome and no LOC arrhythmia seems unlikely Admission/Observation Consideration of admission/observation: Escalation of care including admission/observation considered neg ortho VS, labs reassuring trop flat with symptoms since saturday up and walking look good. if CTA negative the patient feels well and she is eager to go home Lab Data MDM Lab Attestation statement: I reviewed the patient's lab results. 11/02/24 10:40 11/02/24 10:40 Labs: Lab Results 11/02/24 Range/Units 10:40 WBC 7.9 (4.8-10.8) X10*3/uL RBC 4.37 (4.20-5.50) X10*6/uL Hgb 13.1 (12.0-16.0) g/dl Hct 39.0 (37.0-47.0) % MCV 89.2 (80.0-98.0) fL MCH 30.0 (27.0-33.0) pg MCHC 33.6 (31.0-35.0) g/dl RDW 15.8 (11.0-16.0) % Plt Count 395 D (160-400) X10*3/uL MPV 10.2 (9.4-12.3) fL Immature Gran % (Auto) 0.5 H (0.0-0.4) % Neut % (Auto) 64.7 (45-73) % Lymph % (Auto) 23.6 (20-40) % Bates % (Auto) 8.7 (2-11) % Eos % (Auto) 2.0 (0-4) % Baso % (Auto) 0.5 (0-2) % Lymph # (Auto) 1.9 (1.2-4.9) X10*3/uL Bates # (Auto) 0.7 (0.1-1.2) X10*3/uL Eos # (Auto) 0.2 (0.0-0.4) X10*3/uL Baso # (Auto) 0.0 (0.0-0.2) X10*3/uL Abs Immat Gran (auto) 0.04 H (0.00-0.03) X10*3/uL Absolute Neuts (auto) 5.1 (2.0-8.3) x10*3/uL Absolute Nucleated RBC 0.000 (0.0-0.012) X10*3/uL Nucleated RBC % (auto) 0.0 (0.0-0.2) /100WBC Sodium 143 (135-145) mmol/L Potassium 4.4 (3.3-5.1) mmol/L Chloride 111 H (96-108) mmol/L Carbon Dioxide 24 (22-29) mmol/L Anion Gap 12 (12-20) BUN 11 (9-16) mg/dL Creatinine 0.85 (0.5-1.4) mg/dL Estim Creat Clear Calc 44.3 Estimated GFR > 60 Random Glucose 114 (60-115) mg/dL Calcium 9.2 (8.4-10.2) mg/dL Magnesium 2.0 (1.6-2.6) mg/dL Total Bilirubin 0.4 (0.0-1.0) mg/dL Direct Bilirubin 0.2 (0.0-0.5) mg/dL AST 33 H (5-31) U/L ALT 41 H (0-31) U/L Alkaline Phosphatase 56 (39-117) U/L Troponin I High Sens 13.1 D (<3.5-17.0) ng/L B-Natriuretic Peptide 149 H (<100) pg/mL Total Protein 7.2 (6.5-8.0) g/dL Albumin 4.0 (3.5-5.0) g/dL Lipase 24 (8-78) U/L Urine Color Yellow Urine Appearance Cloudy Urine pH 6.0 (5.0-9.0) Ur Specific [place] 1.015 (1.005-1.025) Urine Protein 100 (2+) H (Neg-Trace) mg/dL Urine Glucose (UA) 250 H (Negative) mg/dL Urine Ketones Negative (Negative) mg/dL Urine Blood Negative (Negative) Urine Nitrite Negative (Negative) Ur Leukocyte Esterase Negative (Negative) Urine RBC 0-2 (0-2) /HPF Urine WBC 0-5 (0-5) /HPF Ur Squamous Epith Cells 6-10 (0-2) /HPF Urine Bacteria None Seen (None Seen) Hyaline Casts 6-10 (0-2) /LPF Granular Casts Present Influenza Type A (PCR) NEGATIVE (Negative) Influenza Type B (PCR) NEGATIVE (Negative) RSV RNA Qual (PCR) NEGATIVE (Negative) SARS-CoV-2 RNA (RT-PCR) NEGATIVE (Negative) Independent Interpretation I performed an independent interpretation of an: EKG and CT Scan (head negative, no PE no effusion) Interpretation: Rate: 77 Rhythm: NSR [place]: normal Normal P waves. Normal JIMMY. Normal QRS complex. ST T wave : no SHAD, inverted t waves III, aVF, V6 qTC: 407 prior studies: changed from 10/18 The study has been interpreted contemporaneously by me. . Radiology Impression Discussion of test interpretation with radiology: I have reviewed the radiologist's reading. Independent Historian Clinical information obtained from an independent historian. History obtained from or confirmed by: Other (sister) External Record Review External record reviewed: Inpatient record and Outpatient record Discharge Plan Discharge Clinical Impression: Near syncope Patient Disposition: Home, Self-Care Instructions: Near Syncope (ED) Additional Instructions: no anemia and dehydration minimal very minor bump in liver enzymes repeat with your doctor in a week CT head no injury or bleeding EKG no acute ischemia and troponin (heart enzyme) normal no signs of elevation like last time return for any worsening symptoms or concerns and please follow up with your gear grinder as soon as possible check your blood pressure frequently if below 90 (top number) seek medical care CT of chest no pneumonia, normal VS, no mass, no fluid around the heart Prescriptions: No Action (DME) lancets [FreeStyle Lancets] 28 gauge misc See Rx Instructions .Route Qty: 100 3RF Rx Instructions: Use 1 lancet once a day (DME) walker Misc See Rx Instructions .Route Qty: 1 0RF Rx Instructions: with seat Trulicity 1.5 mg/0.5 mL pen injector 1.5 mg subcut TH@0900 Qty: 6 3RF (DME) Shower Chair Misc See Rx Instructions .Route Qty: 1 0RF Rx Instructions: As directed (DME) clamp on tub safety rail See Rx Instructions .Route .MEDSUPPLY Qty: 1 0RF Rx Instructions: As directed (DME) ez panel machine setter bed assist support See Rx Instructions .Route .MEDSUPPLY Qty: 1 0RF Rx Instructions: As directed famotidine 20 mg tablet 20 mg PO BEDTIME 90 Days Qty: 90 1RF methotrexate sodium 2.5 mg tablet 15 mg PO QWEEK Qty: 72 1RF pregabalin 200 mg capsule 200 mg PO BID Qty: 60 2RF trazodone 100 mg tablet 100 mg PO BEDTIME 90 Days Qty: 90 0RF (DME) FreeStyle Lite Strips Strip MISCELLANEOUS DAILY Qty: 100 1RF Rx Instructions: Use 1 test strip three times a day aspirin 81 mg tablet,delayed release (DR/EC) 81 mg PO DAILY 90 Days Qty: 90 1RF folic acid 1 mg tablet 1 mg PO DAILY Qty: 90 1RF letrozole 2.5 mg Tablet 2.5 mg PO DAILY Qty: 90 3RF ondansetron 4 mg tablet,disintegrating 4 mg PO Q8H PRN (Reason: nausea and vomiting) Qty: 20 0RF tramadol 50 mg tablet 50 mg PO Q6H PRN (Reason: pain) Qty: 20 0RF kkdoylvlcc-dtxiinyiffizj-esbq 50-325-40 mg tablet 1 tab PO Q6H PRN (Reason: haeadace) Qty: 20 0RF (DME) pen needle, diabetic [Comfort EZ Pen [place]] 31 gauge x 5/16 needle See Rx Instructions .ROUTE .MEDSUPPLY Qty: 200 11RF Rx Instructions: Use 1 pen needle 6 times a day albuterol sulfate 90 mcg/actuation HFA aerosol inhaler 2 inh inhalation Q4H PRN (Reason: Shortness Of Breath Or Wheezing) prednisone 5 mg tablet 5 mg PO DAILY Qty: 7 0RF Rx Instructions: see taper instructions Trelegy Ellipta 200-62.5-25 mcg blister with device 1 ea inhalation DAILY simethicone 125 mg capsule 125 mg PO DAILY PRN (Reason: gas pain) Qty: 30 0RF rosuvastatin 20 mg tablet 20 mg PO DAILY Qty: 30 4RF pantoprazole 40 mg tablet,delayed release (DR/EC) 40 mg PO DAILY 90 Days Qty: 90 1RF Print Language: Nepalese
[2024-11-02] MEDS: Morphine Sulfate 4 MG/ML CARTRIDGE IVPUSH (10:45)
[2024-11-02 10:46] LABS: MANUAL DIFF FLAG NO
[2024-11-02 10:49] LABS: Appearance Urine Cloudy; Color Urine Yellow; Glucose Urine UA 250 mg/dL (Negative); Leukocyte Esterase Urine Negative (Negative); Nitrite Urine Negative (Negative); Specific Gravity - Urine 1.015 (1.005-1.025); UMIC TRIGGER UACC YES; Urine Blood Negative (Negative); Urine Ketones Negative (Negative); Urine Protein 100 (2+) mg/dL (Neg-Trace)
[2024-11-02 10:53] LABS: Basophils Percent Auto 0.5 % (0-2); Eosinophils Absolute Auto 0.2 X10*3/uL (0.0-0.4); Hemoglobin 13.1 g/dl (12.0-16.0); Imm Gran Abs Auto 0.04 X10*3/uL (0.00-0.03); Imm Gran Pct Auto 0.5 % (0.0-0.4); Lymphocytes Absolute Auto 1.9 X10*3/uL (1.2-4.9); Lymphocytes Percent Auto 23.6 % (20-40); Mean Corpuscular HGB Conc 33.6 g/dl (31.0-35.0); Mean Corpuscular Volume 89.2 fL (80.0-98.0); Mean Platelet Volume 10.2 fL (9.4-12.3); Monocytes Absolute Auto 0.7 X10*3/uL (0.1-1.2); Monocytes Percent Auto 8.7 % (2-11); Neutrophils Absolute Auto 5.1 x10*3/uL (2.0-8.3); Neutrophils Percent Auto 64.7 % (45-73); Platelet Count 395 X10*3/uL (160-400); Red Blood Count 4.37 X10*6/uL (4.20-5.50); Red Cell Distribution Width 15.8 % (11.0-16.0); White Blood Count 7.9 X10*3/uL (4.8-10.8)
[2024-11-02 11:00] LABS: Bacteria Urine None Seen (None Seen); Granular Casts Urine Present; RBC Urine 0-2 /HPF (0-2); WBC Urine 0-5 /HPF (0-5)
[2024-11-02 11:06] LABS: Alanine Aminotransferase 41 U/L (0-31); Alkaline Phosphatase 56 U/L (39-117); Anion Gap 12 (12-20); Aspartate Amino Transferase 33 U/L (5-31); Bilirubin Direct 0.2 mg/dL (0.0-0.5); Bilirubin Total 0.4 mg/dL (0.0-1.0); Blood Urea Nitrogen 11 mg/dL (9-16); Calcium 9.2 mg/dL (8.4-10.2); Carbon Dioxide 24 mmol/L (22-29); Chloride 111 mmol/L (96-108); Creatinine Clr Calc Pharmacy 44.3; Estimated Glomerular Filt Rate > 60; Glucose Random 114 mg/dL (60-115); Lipase 24 U/L (8-78); Potassium 4.4 mmol/L (3.3-5.1); Sodium 143 mmol/L (135-145); Total Protein 7.2 g/dL (6.5-8.0)
[2024-11-02 11:10] LABS: B Type Natriuretic Peptide 149 pg/mL (<100)
[2024-11-02 11:12] LABS: Troponin-I High Sensitivity 13.1 ng/L (<3.5-17.0)
[2024-11-02 11:26] LABS: Influenza A PCR NEGATIVE (Negative); Influenza B PCR NEGATIVE (Negative); Resp Syncy Virus RNA Qual PCR NEGATIVE (Negative); SARS COV2 PCR INHOUSE NEGATIVE (Negative)
[2024-11-02] MEDS: iohexoL 350 MG/ML 100 ML INFUS..BTL 65 ML IV (12:05)
== END 2024-11-02 15:52 | disposition home or self-care (01) ==
PROVIDERS: Emergency Provider Emergency Medicine; PCP Internal Medicine
DX: R55 Syncope and collapse (principal); R42 Dizziness and giddiness; R51.9 Headache, unspecified; R11.0 Nausea; I10 Essential (primary) hypertension; R94.31 Abnormal electrocardiogram [ECG] [EKG]; R06.02 Shortness of breath; R07.89 Other chest pain; E11.9 Type 2 diabetes mellitus without complications; F17.210 Nicotine dependence, cigarettes, uncomplicated; J44.9 Chronic obstructive pulmonary disease, unspecified; Z03.818 Encounter for observation for suspected exposure to other biological agents ruled out; Z79.899 Other long term (current) drug therapy
CPT/HCPCS: 0241U; 36415; 70450; 71275; 80048; 80076; 81001; 83690; 83735; 83880; 84484; 85025; 93005; 96374; 99284; J2270; Q9967

== ENCOUNTER → 2024-11-02 09:31 | Outpatient (BNV) | payer OTHER, SELFPAY ==
[2024-07-16 09:49] VITALS: BP 96/60; BP 96/66; BMI 22.5
== END ==
PROVIDERS: Emergency Provider Emergency Medicine; PCP Internal Medicine; Visit Provider Internal Medicine
DX: R94.31 Abnormal electrocardiogram [ECG] [EKG] (principal)
CPT/HCPCS: 93010

== ENCOUNTER → 2024-11-02 11:03 | Outpatient (BNV) | payer OTHER, SELFPAY ==
[2024-07-16 09:49] VITALS: BP 96/60; BP 96/66; BMI 22.5
== END ==
PROVIDERS: Emergency Provider Emergency Medicine; PCP Internal Medicine; Visit Provider Radiology Diagnostic Radiology
DX: G93.89 Other specified disorders of brain (principal)
CPT/HCPCS: 70450

== ENCOUNTER 2024-11-04 07:53 | Outpatient (AMB) | payer OTHER, SELFPAY ==
[2024-07-16 09:49] VITALS: BP 96/60; BP 96/66; BMI 22.5
[2024-11-04 07:55] VITALS: BP 122/72; BMI 21.1
--- NOTE | 2024-11-04 07:55 | A.OFFPC_ITS ---
Vital Signs 11/04/24 07:55 Height 4 ft 10 in Weight 101 lb BMI 21.1 BP 122/72 Blood Pressure Location Lt brachial Position Sitting Intake Visit Reasons: 4 Month F/U Intake Note: Patient here for a 4 month follow up, [facility] 10/21/24 heart attack [employer] Research Associate Required: No Accompanied by: Self / Same As Patient Allergies methylprednisolone Allergy (Severe, Verified 11/04/24 08:23) Rash from Solu-Medrol shellfish derived Allergy (Intermediate, Verified 11/04/24 08:23) Hives etanercept [From Enbrel] Adverse Reaction (Severe, Verified 11/04/24 08:23) Facial Swelling metformin Adverse Reaction (Severe, Verified 11/04/24 08:23) Diarrhea metronidazole [From FLAGYL] Adverse Reaction (Severe, Verified 11/04/24 08:23) Diarrhea prednisone Adverse Reaction (Intermediate, Verified 11/04/24 08:23) hallucinations, more than 20 mg doses Medication List - Last Reconciled 11/04/24 by Adela Wasserman MD albuterol sulfate 90 mcg/actuation 2 inhalations inhalation Q4H PRN aspirin 81 mg PO DAILY 90 days blood sugar diagnostic (FreeStyle Lite Strips) Use 1 test strip three times a da y gyqflggtfe-fyqxjsqrqlgdt-siez 50-325-40 mg 1 tab PO Q6H PRN [clamp on tub safety rail As directed] dulaglutide (Trulicity) 1.5 mg (0.5 mL) subcut TH@0900 [ez weave defect charting clerk bed assist support As directed] famotidine 20 mg PO BEDTIME 90 days wahahkwjghz-cgcawalvz-pqwggnry 200-62.5-25 mcg (Trelegy Ellipta) 1 ea inhalation DAILY folic acid 1 mg PO DAILY lancets (FreeStyle Lancets) Use 1 lancet once a day letrozole 2.5 mg PO DAILY methotrexate sodium 15 mg (6 x 2.5 mg) PO QWEEK metoprolol succinate ER 25 mg PO DAILY nicotine 1 patch topical DAILY nicotine (polacrilex) mg PO ondansetron 4 mg PO Q8H PRN pantoprazole 40 mg PO DAILY 90 days pen needle, diabetic (Comfort EZ Pen Rotan) Use 1 pen needle 6 times a day pregabalin 200 mg PO BID rosuvastatin 20 mg PO DAILY Shower Chair As directed simethicone 125 mg PO DAILY PRN ticagrelor (Brilinta) 90 mg PO BID tramadol 50 mg PO Q6H PRN trazodone 100 mg PO BEDTIME 90 days walker with seat Tobacco use date assessed: 11/04/24 Dental Screening Dental Screen Date: 11/04/24 HPI HPI Comments History of Present Illness Details The patient is a 64-year-old female presenting with concerns related to a previous acute ST-segment elevation myocardial infarction (STEMI) experienced in October 2024. Management included coronary angiography and placement of a stent within an occluded previous stent. She had AK in 2021. Post-procedural follow-up included regular cardiac evaluations. The patient reports a near- syncopal episode without loss of consciousness recently, which has coincided with feelings of weakness and went to ER 11/02/24. Previous imaging and lab tests from this episode revealed no significant acute findings regarding the head CT, with blood glucose management being stable, and recent blood pressures measuring 122/75 mmHg. The patient has a known history of coronary artery di sease, COPD requiring Trelegy, and she is currently under management with multiple specialists. Her diabetes is managed with Trulicity and other oral medications. She completed a 5-year course of Letrozole for a past breast cancer, with current remission status noted. Recent lab results indicated slightly elevated liver enzymes with concerns for methotrexate use and statin use contributing to potential liver function compromise. The patient experiences depressive mood shifts post-cardiac event alongside disrupted sleep but does not endorse suicidal ideation. She notes significant improvement in smoking cessation over the past two weeks. PHA9 shows severe depression with no suicidal thoughts and I will refer her to psych outpatient for this matter. She also has rheumatoid arthritis follow by rheumatology. She complaints of left scapular pain that started recently and I will order XR. Has full active range of motion. For her blood pressure, needs new sphingomanometer for home BP monitoring. [facility] Medical History (Updated 11/04/24 @ 08:47 by Adela Wasserman MD) NSTEMI (non-ST elevated myocardial infarction) GERD (gastroesophageal reflux disease) Diverticulitis large intestine FDC (current) use 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 Acute respiratory distress Tendonitis of ankle or foot Cough Stable angina Anxiety CAD (coronary artery disease) HLD (hyperlipidemia) HTN (hypertension) COPD exacerbation Hyperkalemia Atherosclerotic cardiovascular disease Hospital discharge follow-up Colitis CVA (cerebral vascular accident) (~2018) Breast pain, right Rash Bloody diarrhea PAD (peripheral artery disease) Hyperlipidemia LDL goal <100 COPD (chronic obstructive pulmonary disease) Infiltrating ductal carcinoma of left breast, stage 2 Insomnia Dyslipidemia Bipolar 1 disorder, depressed Cough Restrictive airway disease Hypothyroid IDDM (insulin dependent diabetes mellitus) Vitamin D deficiency Osteoporosis Breast cancer Hyperparathyroidism Thyroid nodule T2DM (type 2 diabetes mellitus) Depression Fibromyalgia Seropositive rheumatoid arthritis Reactive airways dysfunction syndrome Allergic rhinitis Irritable bowel Anxiety Bronchial asthma Diabetes type 2, uncontrolled Surgical History S/P laparoscopic colectomy (04/15/24) Hx of sigmoidoscopy History of bronchoscopy Hx of endoscopy H/O cardiac catheterization History of lumpectomy of left breast History of pubovaginal sling History of esophagogastroduodenoscopy (EGD) History of tubal ligation History of colonoscopy History of bunionectomy of both great toes H/O: hysterectomy Family History Mother Diabetes HTN (hypertension) Uterus cancer Malignant tumor of head Breast cancer Father Diabetes HTN (hypertension) CVD (cardiovascular disease) Heart problem Maternal Aunt Breast cancer Brother Myocardial infarction S/P CABG x 4 Family/Other FH: mental illness Family/Other Lung cancer Other Mental health disorder Social History (Updated 11/04/24 @ 08:36 by Adela Wasserman MD) Household Members: Family Household Members Other:: sister Housing: House Are you a primary home health care coordinator to a significant other at home: No Do you presently have visiting nurse or other home services: No Unable to assess alcohol history related to: Unknown Alcohol intake: former Comment: Low fall Patient Tobacco Use Status: Former Tobacco user Tobacco use type: Cigarette Cigarette Packs Per Day: 0.5 Cigarettes Per Day: 3 Years Smoked: 48 e-Cigarette/Vaping Use: Never Used Second Hand Smoke Exposure: No Substance Use Type: Marijuana Advance Directives Date on File: 12/22/21 service: No Current occupational status: disabled Current occupation: rt handed Cognitive needs: No Hearing needs: No Vision needs: Yes Questionnaire PHQ-9 Over the last 2 weeks, how often have you been bothered by any of the following problems? 1. Little interest or pleasure in doing things: nearly every day 2. Feeling down, depressed, or hopeless: nearly every day 3. Trouble falling or staying asleep, or sleeping too much: nearly every day 4. Feeling tired or having little energy: nearly every day 5. Poor appetite or overeating: nearly every day 6. Feeling bad about yourself - or that you are a failure or have let yourself or your family down: nearly every day 7. Trouble concentrating on things, such as reading the newspaper or watching television: nearly every day 8. Moving or speaking so slowly that other people could have noticed. Or the opposite - being so fidgety or restless that you have been moving around a lot more than usual: nearly every day 9. Thoughts that you would be better off or of hurting yourself in some way: not at all Total score: 24 Depression Screening Interpretation: Positive (no suicidal thoughts) Depression Screening Follow-up: Existing condition, In treatment, Community Mental Health Worker F/U and Follow-up Visit Requested Depression Screening Done: Yes 40750 - PHQ-9 Billing: Yes Source: Developed by Drs. Hernandez Norris, Gissell Solorzano, Gilmar Szymanski and colleagues, with an educational chris from [employer]. Thrive Questionnaire Date Thrive assessed: 11/04/24 I am a: Patient What is your living situation today?: I have a steady place to live Within the past 12 months, did the food you bought not last and you didn't have the money to get more?: Never true Within the past 12 months, did you worry whether your food would run out before you got money to buy more?: Never true Do you have trouble paying for medicines?: No Do you have trouble getting transportation to medical appointments?: No Do you have trouble paying your heating and electricity bill?: No Do you have trouble taking care of your child, family member or friend?: No Do you have trouble with day-to-day activities such as bathing, preparing meals, shopping, managing finances, etc.?: No Are you currently unemployed and looking for a job?: No Are you interested in more education?: No Please select the resources that you would like help with: None Currently or been in a relationship where the following occur: No concerns reported THRIVE Score: 0 AUDIT C Alcohol Use Questionnaire (AUDIT-C) 1. How often do you have a drink containing alcohol?: Never Total Score: 0 Score Reviewed/Action Taken: No FLAVIA-7 AMB Questionnaire FLAVIA-7 Date FLAVIA - 7 assessed: 11/04/24 Feeling nervous, anxious, or on edge: 0 = Not at all Not being able to stop or control worryin = Not at all Worrying too much about different things: 0 = Not at all Trouble relaxin = Not at all Being so restless that it is hard to sit still: 0 = Not at all Becoming easily annoyed or irritable: 0 = Not at all Feeling afraid as if something awful might happen: 0 = Not at all Total FLAVIA-7 score (0-4 normal; 5-9 mild; 10-14 moderate; 15-21 severe): 0 Source: Developed by Drs. Hernandez Norris, Gissell Solorzano, Gilmar Szymanski and colleagues, with an educational chris from [employer]. FLAVIA-7 Assessment Billing FLAVIA-7 Assessment Tool: FLAVIA-7 Assessment 68489 Review of Systems Const Details: - Cardiovascular: Reports weakness associated with recent near-syncopal episode. - Neurologic: Denies loss of consciousness. - Endocrine: Denies hypoglycemic episodes. - Respiratory: Denies shortness of breath. - Musculoskeletal: Reports discomfort in scapular region without significant movement restriction. - Sleep: Reports waking during the night and fatigue. - Psychological: Reports emotional lability and depressive symptoms. Physical exam (Primary Care) Vital Signs: Last Vital Signs BP 122/72 11/04/24 07:55 BMI result Body Mass Index 21.1 Tobacco/Smoking Status: Tobacco use Status Tobacco use date assessed 11/04/24 11/04/24 07:56 Patient Tobacco Use Status Current everyday Tobacco 11/04/24 07:56 Tobacco use type Cigarette 11/04/24 07:56 e-Cigarette/Vaping Use Never Used 11/04/24 07:56 PHQ-9: PHQ-9 Score PHQ-9: Total score 11/04/24 08:10 Depression Screening Interpretation: Positive (no suicidal thoughts) Depression Screening Follow-up: Existing condition, In treatment, Community Mental Health Worker F/U and Follow-up Visit Requested Thrive Assessment: Date of Thrive Assessment Date Thrive assessed 11/04/24 11/04/24 07:57 Currently or been in a relationship where the following occur: No concerns reported Const Other: General: No confusion Respiratory: Normal respiratory effort, clear to auscultation bilaterally Cardiovascular: No jugular venous distension, regular rate, regular rhythm, S1 normal heart sound present and S2 normal heart sound present Neurology: Patient oriented x3, no focal motor deficits and No confusion Extremities: Full ROM, but reports pain when moving the scapula Psychology: Severe depression with PHQ-9 score of 24, no suicidal ideation reported Office Procedures Flu Questionnaire Does the patient have a severe egg allergy?: No Results AMB Hemoglobin A1c AMB Hemoglobin A1c 6.7 % Last Edit by KENNY Coronel on 11/04/24 08:1 1 Immunizations Fluarix Triv [id number] (PF) 45 mcg (15 mcg x 3)/0.5 mL IM syringe Performing Provider: Adela Wasserman MD [place] Documented (not given) by: KENNY Coronel on 11/04/24 08:10 Reason Not Given: Patient Refused Results Reviewed Results Reviewed: Laboratory Last Values Hgb A1c (Clinic) 6.7 % (4.0-6.0) H 11/04/24 07:59 Coding Level of Care Code Est Pt Level 4 (26706) Complex EM visit Add On G2211 Diagnoses STEMI (ST elevation myocardial infarction) I21.3 Severe major depression without psychotic features F32.2 Transaminitis R74.01 Pain of left scapula M89.8X1 Type 2 diabetes mellitus without complication, without long-term current use of insulin E11.9 Diabetes mellitus type: type 2 Diabetes mellitus fci insulin use: without emt intermediate use Diabetes mellitus complication status: without complication Chronic obstructive pulmonary disease, unspecified COPD type J44.9 COPD type: unspecified COPD Seropositive rheumatoid arthritis M05.9 Additional Codes PHQ-9 - 24406 - PHQ-9 Billing: Yes ([id number]) FLAVIA-7 Assessment Billing - FLAVIA-7 Assessment Tool: FLAVIA-7 Assessment 80023 ([id number]) Time Spent (min) 28 Assessment & Plan Assessment & Plan (1) STEMI (ST elevation myocardial infarction): Code(s): I21.3 - ST elevation (STEMI) myocardial infarction of unspecified site Category: Medical (2) Severe major depression without psychotic features: Code(s): F32.2 - Major depressive disorder, single episode, severe without psychotic features Category: Medical (3) Transaminitis: Code(s): R74.01 - Elevation of levels of liver transaminase levels Category: Medical (4) Pain of left scapula: Code(s): M89.8X1 - Other specified disorders of bone, shoulder Category: Medical (5) Diabetes mellitus: Code(s): E11.9 - Type 2 diabetes mellitus without complications Category: Medical Qualifiers: Diabetes mellitus type: type 2 Diabetes mellitus fci insulin use: without fci use Diabetes mellitus complication status: without complication Qualified Code(s): E11.9 - Type 2 diabetes mellitus without complications (6) COPD (chronic obstructive pulmonary disease): Code(s): J44.9 - Chronic obstructive pulmonary disease, unspecified Category: Medical Qualifiers: COPD type: unspecified COPD Qualified Code(s): J44.9 - Chronic obstructive pulmonary disease, unspecified (7) Seropositive rheumatoid arthritis: Comment: +++RF+++CCP dx around 1999 [place]: 04/2021- 06/2022- stopped due to severe COPD requiring long standing azithromycin Plaquenil: approx. 02/2021-May 2021 self stopped Enbrel: approx. 02/2021 ordered after cleared for hep A, stopped due to allergy Sulfasalazine: approx. 02/2019- 02/2021 - restarted 09/27/2022 -04/2023 stopped due to heaedache and nausea Methorexate: approx. 11/2016-12/2018 [place] [facility] [place] Diagnosed with breast CA so methotrexate discontinued. Changed to sulfsalazine 500mg 2 tabs BID to prevent lung fibrosis as patient was receiving radiation therapy for her breast CA. Completed Radiation therapy February 2019. OnTamoxifen but had side effects so was started on Letrozole in May 2019. MTX restarted 02/2024 Xeljanz: approx. 03/2018-04/2018 Cimzia: aprrox.05/2017- did not take Humira: dates unknown Leflunomide: many years ago, then approx. 08/2020-02/2021 Code(s): M05.9 - Rheumatoid arthritis with rheumatoid factor, unspecified Category: Medical Plan - Follow-up with rodding anode worker today to monitor heart health post-STEMI and assess stent functionality. - Continue with current COPD management regimen including Trelegy once daily. - Maintain diabetes management with Trulicity and monitor blood glucose levels; ensure regular A1c testing. - Arrange further evaluation of liver enzymes and consider ultrasound to assess liver health due to methotrexate usage. - Maintain calorie-controlled diet and incorporate smoking cessation aids as needed. - Prescribe and adjust antidepressants and sleep aids to manage depressive sympt oms and sleep disturbances; increase Trazodone dosage gradually from 150 mg as tolerated. - Discuss with electronic lab technician regarding her rheumatoid arthritis. - Continue lipid management with rosuvastatin and monitor cholesterol levels. - Schedule periodic lab and imaging evaluations to assess treatment response and ongoing health monitoring. Patient was informed and verbally consented to the use of an ambient scribe for clinic note documentation during this visit. In this consultation, I discussed the importance of adequately managing coronary artery disease and preventing recurrence of myocardial infarction. We reviewed her successful smoking cessation milestones and emphasized the impact on her respiratory health, highlighted by improved moods and breathing tests. I recommended ongoing follow-up with her rodding anode worker to ensure stent patency and cardiac stability, especially in light of her previous STEMI intervention. We explored the benefits and necessary adjustments of her antidepressant treatment with Trazodone, advising on careful gradual dose titration. Any potential impact of methotrexate on liver function was deliberated, and I proposed further liver ultrasound screening and lab evaluations as indicated. The risks and benefits of continued methotrexate use were considered in her care for rheumatoid arthritis, including ongoing collaboration with her electronic lab technician. I underscored the significance of her multidisciplinary follow-ups to optimize overall health and chronic disease management. Orders: Orders Influenza [id number] Immunization Today Z23 - Encounter for immunization AMB Hemoglobin A1c Today E11.9 - Type 2 diabetes mellitus without complications US abdomen comp w elastography Today R74.01 - Elevation of levels of liver transaminase levels XR scapula LT Today M89.8X1 - Other specified disorders of bone, shoulder Lipid Panel 4 Months E78.5 - Hyperlipidemia, unspecified Vitamin D 25-OH Total 4 Months E55.9 - Vitamin D deficiency, unspecified Microalbumin, Random (w Creat) 4 Months R80.9 - Proteinuria, unspecified Comprehensive [place]. Panel Fast 4 Months E11.9 - Type 2 diabetes mellitus without complications, I21.4 - Non-ST elevation (NSTEMI) myocardial infarction Referrals Psychiatry Outpatient Consultation Service F32.2 - Major depressive disorder, single episode, severe without psychotic features Medications: New trazodone 50 mg PO BEDTIME 90 days PRN 90 tabs 0RF sleep Patient Instructions: - Continue regular follow-up with your rodding anode worker and report any new or worsening cardiovascular symptoms immediately. - Avoid smoking or any exposure to tobacco products; consider using nicotine replacement therapy. - Follow your diabetes management plan, monitor blood sugar levels, and maintain a log for review at the next visit. - Take medications as prescribed and notify me of any side effects or concerns. - Schedule the ultrasound to assess liver health within recommended timeframes. - Maintain a balanced diet and monitor weight changes. - Engage in physical activities as tolerated and advised by your healthcare specialists. - Attend all scheduled specialist appointments and bring up any new symptoms. - Seek prompt medical attention if you experience significant mood changes or thoughts of self-harm. - Keep records of any health changes and alert me during future visits.
== END 2024-11-04 08:47 | disposition home or self-care (01) ==
PROVIDERS: PCP Internal Medicine; Visit Provider Internal Medicine
DX: I21.3 ST elevation (STEMI) myocardial infarction of unspecified site (principal); F32.2 Major depressive disorder, single episode, severe without psychotic features; E11.9 Type 2 diabetes mellitus without complications; J44.9 Chronic obstructive pulmonary disease, unspecified; M05.9 Rheumatoid arthritis with rheumatoid factor, unspecified; R74.01 Elevation of levels of liver transaminase levels; M89.8X1 Other specified disorders of bone, shoulder; Z23 Encounter for immunization

== ENCOUNTER 2024-11-04 07:53 | Outpatient (REF) | payer OTHER, SELFPAY ==
[2024-07-16 09:49] VITALS: BP 96/60; BP 96/66; BMI 22.5
--- NOTE | ~2024-11-04 | XR_ITS ---
EXAMINATION: XR LEFT SCAPULA CLINICAL INFORMATION: Other specified disorders of bone, shoulder M89.8X1. COMPARISON: None available. TECHNIQUE: AP and scapular Y views of the left scapula. FINDINGS: The bones and soft tissues are normal. No scapular fracture. Glenohumeral and acromioclavicular alignment is normal. XR/XR scapula LT IMPRESSION: Normal left scapula. Electronically signed by: Hernandez Mondragon MD 12/16/2024 12:52 PM SHRUTHI
== END 2024-11-04 07:54 | disposition home or self-care (01) ==
LOC: HO.XRAY 07:53
PROVIDERS: PCP Internal Medicine; Visit Provider Internal Medicine
DX: I21.3 ST elevation (STEMI) myocardial infarction of unspecified site (principal); F32.2 Major depressive disorder, single episode, severe without psychotic features; R74.01 Elevation of levels of liver transaminase levels; M89.8X1 Other specified disorders of bone, shoulder; E11.9 Type 2 diabetes mellitus without complications; J44.9 Chronic obstructive pulmonary disease, unspecified; M05.9 Rheumatoid arthritis with rheumatoid factor, unspecified; E78.5 Hyperlipidemia, unspecified; E55.9 Vitamin D deficiency, unspecified; R80.9 Proteinuria, unspecified; Z28.21 Immunization not carried out because of patient refusal
CPT/HCPCS: 73010; 83036; 90471; 96127; 99212

== ENCOUNTER 2024-11-04 09:34 | Outpatient (AMB) | payer OTHER, SELFPAY ==
[2024-07-16 09:49] VITALS: BP 96/60; BP 96/66; BMI 22.5
[2024-11-04 09:37] VITALS: BP 120/60; PULSE 74; BMI 21.1
--- NOTE | 2024-11-04 09:37 | A.OFFVIS_ITS ---
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 Accompanied by: Self / Same As Patient Allergies methylprednisolone Allergy (Severe, Verified 11/04/24 08:23) Rash from Solu-Medrol shellfish derived Allergy (Intermediate, Verified 11/04/24 08:23) Hives etanercept [From Enbrel] Adverse Reaction (Severe, Verified 11/04/24 08:23) Facial Swelling metformin Adverse Reaction (Severe, Verified 11/04/24 08:23) Diarrhea metronidazole [From FLAGYL] Adverse Reaction (Severe, Verified 11/04/24 08:23) Diarrhea prednisone Adverse Reaction (Intermediate, Verified 11/04/24 08:23) hallucinations, more than 20 mg doses Medication List - Last Reconciled 11/04/24 by Joseph Salmon MD albuterol sulfate 90 mcg/actuation 2 inhalations inhalation Q4H PRN aspirin 81 mg PO DAILY 90 days blood pressure test kit-medium As directed blood sugar diagnostic (FreeStyle Lite Strips) Use 1 test strip three times a day drzrjzpxqp-thiyxlqgzfkbl-cbyg 50-325-40 mg 1 tab PO Q6H PRN [clamp on tub safety rail As directed] dulaglutide (Trulicity) 1.5 mg (0.5 mL) subcut TH@0900 [ez sheet heater bed assist support As directed] famotidine 20 mg PO BEDTIME 90 days pgprzowncyw-ytukdcbwo-xmbcshqc 200-62.5-25 mcg (Trelegy Ellipta) 1 ea inhalation DAILY folic acid 1 mg PO DAILY lancets (FreeStyle Lancets) Use 1 lancet once a day letrozole 2.5 mg PO DAILY methotrexate sodium 15 mg (6 x 2.5 mg) PO QWEEK metoprolol succinate ER 25 mg PO DAILY nicotine 1 patch topical DAILY nicotine (polacrilex) mg PO ondansetron 4 mg PO Q8H PRN pantoprazole 40 mg PO DAILY 90 days pen 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 She is returning for follow-up. She was seen last time with chest discomfort. There was some dyspnea on exertion also. She underwent stress echocardiogram which she was able to exercise to 7 metabolic equivalents without any EKG changes or wall motion abnormalities. 11/2022: Unfortunately had influenza in October and is recovering from that. Still having significant shortness of breath and continues to have mild wheezes. She just finished her prednisone taper yesterday. She is having upper abdominal pain. Denying any chest discomfort on follow-up. No peripheral edema. No obvious signs of heart failure. 06/10/23: She returns for follow-up. She is saying she has been experiencing significant shortness of breath and has been using the inhaler and nebulizers quite frequently. She also had some chest pain and went to emergency department and was ruled out. She has stress testing recently which was normal. She is saying that depending on whether her breathing changes. If it is humid and hot outside she gets really out of breath. She is still smoking 2 cigarettes per day. Overall from cardiovascular point of view she has stable angina and mostly has shortness of breath due to COPD. 09/23/23: She returns for follow-up. She underwent stress testing where she had hypotensive response to exercise. She was taken for cardiac catheterization which revealed stable disease with no significant LAD or RCA stenosis. Her previous circumflex stents were patent. She returns for follow-up and continues to smoke. She continues to have some sharp non anginal chest pains. She is following with pulmonology for COPD. She was on Wellbutrin which was stopped because she had history of seizures. We discussed about starting Chantix and she is agreeable. 01/27/2024: She returns for follow-up. She could not tolerate Chantix. She is still trying and is currently on 1 cigarette per day. She has Crohn's disease and has significant GI issues and unable to eat and drink well. She has been noticed to be tachycardic and and is saying that she is unable to eat and drink well. She will discuss this with GI. She also has left ankle pain and some burning sensation on the left calf. She also has a bandlike burning sensation in the thoracic region radiating to the front. No rashes noted by her. She has questions that are her symptoms due to amyloidosis as she has Googled her symptoms. She was reassured. 06/03/24: She is here for follow-up. She has restarted smoking unfortunately. Blood pressure control is good. Getting some reproducible left-sided chest pains off and on. She is asking whether she can have a lipid panel done. 09/21/24: Repeat cholesterol testing in 06/06/2024 showing total cholesterol 190, LDL 108, HDL 35 and triglycerides 239. After circumflex PCI she was started on statins but it appears she had GI upset after starting cardiovascular medicines and stopped taking the statins. She has not restarted statins since then. She was given lisinopril on last visit because blood pressure was elevated but is saying that she had nausea and GI upset and stopped taking lisinopril. Continues to smoke at this stage. We discussed about smoking cessation. 11/04/24: She is here for f/u. She had CP early october and went to [facility] [place] for inf STEMI. She was noted to have severe ISR and underwent PCI to OM2. She has been on ASA and Brilinta. She has stopped smoking since she had [place]. Blood pressure well controlled. [facility] Medical History (Updated 11/04/24 @ 08:47 by Adela Wasserman MD) NSTEMI (non-ST elevated myocardial infarction) GERD (gastroesophageal reflux disease) Diverticulitis large intestine intermediate frame tender (current) use 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 Acute respiratory distress Tendonitis of ankle or foot Cough Stable angina Anxiety CAD (coronary artery disease) HLD (hyperlipidemia) HTN (hypertension) COPD exacerbation Hyperkalemia Atherosclerotic cardiovascular disease Hospital discharge follow-up Colitis CVA (cerebral vascular accident) (~2018) Breast pain, right Rash Bloody diarrhea PAD (peripheral artery disease) Hyperlipidemia LDL goal <100 COPD (chronic obstructive pulmonary disease) Infiltrating ductal carcinoma of left breast, stage 2 Insomnia Dyslipidemia Bipolar 1 disorder, depressed Cough Restrictive airway disease Hypothyroid IDDM (insulin dependent diabetes mellitus) Vitamin D deficiency Osteoporosis Breast cancer Hyperparathyroidism Thyroid nodule T2DM (type 2 diabetes mellitus) Depression Fibromyalgia Seropositive rheumatoid arthritis Reactive airways dysfunction syndrome Allergic rhinitis Irritable bowel Anxiety Bronchial asthma Diabetes type 2, uncontrolled Surgical History S/P laparoscopic colectomy (04/15/24) Hx of sigmoidoscopy History of bronchoscopy Hx of endoscopy H/O cardiac catheterization History of lumpectomy of left breast History of pubovaginal sling History of esophagogastroduodenoscopy (EGD) History of tubal ligation History of colonoscopy History of bunionectomy of both great toes H/O: hysterectomy Family History Mother Diabetes HTN (hypertension) Uterus cancer Malignant tumor of head Breast cancer Father Diabetes HTN (hypertension) CVD (cardiovascular disease) Heart problem Maternal Aunt Breast cancer Brother Myocardial infarction S/P CABG x 4 Family/Other FH: mental illness Family/Other Lung cancer Other Mental health disorder Social History Household Members: Family Household Members Other:: sister Housing: House Are you a primary medicare biller to a significant other at home: No Do you presently have visiting nurse or other home services: No Unable to assess alcohol history related to: Unknown Alcohol intake: former Comment: Low fall Patient Tobacco Use Status: Former Tobacco user Tobacco use type: Cigarette Cigarette Packs Per Day: 0.5 Cigarettes Per Day: 3 Years Smoked: 48 e-Cigarette/Vaping Use: Never Used Second Hand Smoke Exposure: No Substance Use Type: Marijuana Advance Directives Date on File: 12/22/21 service: No Current occupational status: disabled Current occupation: rt handed Cognitive needs: No Hearing needs: No Vision needs: Yes Review of Systems Const Denies chills, Denies fatigue, Denies fever(s), Denies frequent falls, Denies weakness, Denies weight gain and Denies weight loss ENT Denies dizziness Card Denies chest pain, Denies leg edema, Denies lightheadedness, Denies palpitations, Denies dyspnea and Denies dyspnea on exertion Resp Denies cough, Denies dyspnea and Denies dyspnea on exertion GI Denies hematochezia Musc Denies abnormal gait, Denies muscle weakness, Denies numbness, Denies radiating pain into limb and Denies tingling Neuro Denies abnormal gait, Denies dizziness, Denies frequent falls, Denies numbness, Denies tingling and Denies weakness Endo Denies fatigue and Denies palpitations Physical Exam Vital Signs: Last Vital Signs Pulse 74 11/04/24 09:37 BP 120/60 11/04/24 09:37 BMI result Body Mass Index 21.1 GENERAL APPEARANCE: in no acute distress, pleasant. NECK: no carotid bruit, no jugular venous distention. SKIN: no suspicious lesions, warm and dry. HEART: no murmurs, regular rate and rhythm. LUNGS: Lungs clear to auscultation. ABDOMEN: soft. EXTREMITIES: no edema. PERIPHERAL PULSES: equal. NEUROLOGIC: No gross deficits, AAO X 3 Results AMB Hemoglobin A1c AMB Hemoglobin A1c 6.7 % Last Edit by KENNY Coronel on 11/04/24 08:1 1 Quality Reporting (2019) Adult ([facility] 138/[birth year]) Smoking risk assessment performed?: Yes Patient Tobacco Use Status: Former Tobacco user Assessment & Plan Assessment & Plan (1) STEMI (ST elevation myocardial infarction): Code(s): I21.3 - ST elevation (STEMI) myocardial infarction of unspecified site Category: Medical Plan 64-year-old female who is here for f/u. She has h/o previous PCI to OM. She recently presented to [facility] [place] with inf STEMI and had PCI to severe ISR in the OM. She has done well since then. She is taking ASA and Brilinta. No concerns for bleeding. She has stopped smoking. I have advised her not to restart. Referring to cardiac rehab. f/u in few months. Orders: Orders Cardiac Rehab Today I21.3 - ST elevation (STEMI) myocardial infarction of unspecified site Medications: New blood pressure monitor As directed 1 ea 0RF I21.3 - ST elevation (STEMI) myocardial infarction of unspecified site Coding Level of Care Code Est Pt Level 4 (61082) Diagnoses STEMI (ST elevation myocardial infarction) I21.3
== END 2024-11-04 09:59 | disposition home or self-care (01) ==
PROVIDERS: PCP Internal Medicine; Visit Provider Internal Medicine Cardiovascular Disease
DX: I21.3 ST elevation (STEMI) myocardial infarction of unspecified site (principal)
CPT/HCPCS: 99214

== ENCOUNTER 2024-11-16 11:56 | Emergency (ER) | payer OTHER, SELFPAY ==
[2024-07-16 09:49] VITALS: BP 96/60; BP 96/66; BMI 22.5
--- NOTE | ~2024-11-16 | US_ITS ---
EXAMINATION: US ABDOMEN LIMITED CLINICAL INFORMATION: Right upper quadrant pain Pain radiating to left. COMPARISON: None available. TECHNIQUE: Real-time imaging of the right upper quadrant abdominal viscera. FINDINGS: GALLBLADDER: The gallbladder is physiologically distended without evidence of stones, sludge, polyps, wall thickening or pericholecystic fluid. Gallbladder wall thickness is 0.1 cm COMMON BILE DUCT: Normal in caliber measuring 0.3 cm in diameter. FREE FLUID: No free fluid seen in the right upper quadrant. US/US abdomen limited IMPRESSION: Normal gallbladder and CBD. Electronically signed by: Pedro Peter MD 11/16/2024 02:09 PM EST
[2024-11-16 12:47] VITALS: BP 142/87; PULSE 95; RESP 18; TEMP 36.4; O2SAT 97; BMI 20.8
--- NOTE | 2024-11-16 12:47 | ED_ITS ---
HPI - General Adult General Chief complaint: Abdominal Pain Stated complaint: stabbing pain in stomach w/ eating or drinking Related Data Home Medications ?Medication ?Instructions ?Recorded ?Confirmed albuterol sulfate 90 mcg/actuation 2 inh inhalation Q4H PRN Shortness 08/23/23 12/23/24 aerosol inhaler Of Breath Or Wheezing fluticasone fur. 200 mcg-umeclid 1 ea inhalation DAILY 02/06/24 12/23/24 62.5 mcg-vilant 25 mcg inhalat.powder (Trelegy Ellipta) metoprolol succinate 25 mg 25 mg PO DAILY 11/04/24 12/23/24 tablet,extended release 24 hr nicotine (polacrilex) 2 mg gum mg PO 11/04/24 12/23/24 nicotine 14 mg/24 hr daily 1 patch topical DAILY 11/04/24 12/23/24 transdermal patch Previous Rx's ?Medication ?Instructions ?Recorded walker #1 ea 02/08/23 pen needle, diabetic 31 gauge x #200 ea 11/27/2304/02 (Comfort EZ Pen [place]) dulaglutide 1.5 mg/0.5 mL 1.5 mg (0.5 mL) subcut TH@0900 #6 12/30/23 subcutaneous pen injector mL (Trulicity) Shower Chair #1 ea 01/15/24 clamp on tub safety rail #1 ea 01/15/24 ez collar baster jumpbasting bed assist support #1 ea 01/15/24 famotidine 20 mg tablet 20 mg PO BEDTIME 90 days #90 tabs 01/31/24 ondansetron 4 mg disintegrating 4 mg PO Q8H PRN nausea and 02/19/24 tablet vomiting #20 tabs simethicone 125 mg capsule 125 mg PO DAILY PRN gas pain #30 04/28/24 caps pantoprazole 40 mg tablet,delayed 40 mg PO DAILY 90 days #90 tabs 08/04/24 release tramadol 50 mg tablet 50 mg PO Q6H PRN pain #20 tabs 10/06/24 imvwtuepgw-kxmpcvaxqtioj-doiouucm 1 tab PO Q6H PRN haeadace #20 tabs 10/18/24 50 mg-325 mg-40 mg tablet aspirin 81 mg tablet,delayed 81 mg PO DAILY 90 days #90 tabs 10/19/24 release blood pressure monitor #1 ea 11/04/24 blood pressure test kit-medium #1 ea 11/04/24 trazodone 50 mg tablet 50 mg PO BEDTIME PRN sleep 90 days 11/04/24 #90 tabs metoclopramide HCl 5 mg tablet 5 mg PO TID PRN nausea and 11/19/24 (Reglan) vomiting 30 days #90 tabs lancets 28 gauge (FreeStyle #100 ea 12/09/24 Lancets) ticagrelor 90 mg tablet (Brilinta) 90 mg PO BID #90 tabs 12/11/24 blood sugar diagnostic (FreeStyle #100 ea 12/13/24 Lite Strips) pregabalin 200 mg capsule 200 mg PO BID #60 caps 12/16/24 folic acid 1 mg tablet 1 mg PO DAILY #90 tabs 12/23/24 hydroxychloroquine 200 mg tablet 200 mg PO DAILY #90 tabs 12/23/24 (Plaquenil) methotrexate sodium 2.5 mg tablet 15 mg (6 x 2.5 mg) PO QWEEK #72 12/23/24 tabs mirtazapine 15 mg tablet 15 mg PO BEDTIME #90 tabs 12/23/24 Allergies Allergy/AdvReac Type Severity Reaction Status Date / Time methylprednisolone Allergy Severe Rash from Verified 12/24/24 08:55 Solu-Medrol shellfish derived Allergy Intermediate Hives Verified 12/24/24 08:55 etanercept [From Enbrel] AdvReac Severe Facial Verified 12/24/24 08:55 Swelling metformin AdvReac Severe Diarrhea Verified 12/24/24 08:55 metronidazole [From FLAGYL] AdvReac Severe Diarrhea Verified 12/24/24 08:55 prednisone AdvReac Intermediate hallucinations, Verified 12/24/24 08:55 more than 20 mg doses PMFSH Past Medical History Medical History NSTEMI (non-ST elevated myocardial infarction) GERD (gastroesophageal reflux disease) Diverticulitis 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 Acute respiratory distress Tendonitis of ankle or foot Cough Stable angina Anxiety CAD (coronary artery disease) HLD (hyperlipidemia) HTN (hypertension) COPD exacerbation Hyperkalemia Atherosclerotic cardiovascular disease Hospital discharge follow-up Colitis CVA (cerebral vascular accident) (~2018) Breast pain, right Rash Bloody diarrhea PAD (peripheral artery disease) Hyperlipidemia LDL goal <100 COPD (chronic obstructive pulmonary disease) Infiltrating ductal carcinoma of left breast, stage 2 Insomnia Dyslipidemia Bipolar 1 disorder, depressed Cough Restrictive airway disease Hypothyroid IDDM (insulin dependent diabetes mellitus) Vitamin D deficiency Osteoporosis Breast cancer Hyperparathyroidism Thyroid nodule T2DM (type 2 diabetes mellitus) Depression Fibromyalgia Seropositive rheumatoid arthritis Reactive airways dysfunction syndrome Allergic rhinitis Irritable bowel Anxiety Bronchial asthma Diabetes type 2, uncontrolled Surgical History S/P laparoscopic colectomy (04/15/24) Hx of sigmoidoscopy History of bronchoscopy Hx of endoscopy H/O cardiac catheterization History of lumpectomy of left breast History of pubovaginal sling History of esophagogastroduodenoscopy (EGD) History of tubal ligation History of colonoscopy History of bunionectomy of both great toes H/O: hysterectomy Family History Family History Mother Diabetes HTN (hypertension) Uterus cancer Malignant tumor of head Breast cancer Father Diabetes HTN (hypertension) CVD (cardiovascular disease) Heart problem Maternal Aunt Breast cancer Brother Myocardial infarction S/P CABG x 4 Family/Other FH: mental illness Family/Other Lung cancer Other Mental health disorder Social History Social History Household Members: Family Household Members Other:: sister Housing: House Are you a primary care coordination manager to a significant other at home: No Do you presently have visiting nurse or other home services: No Unable to assess alcohol history related to: Unknown Alcohol intake: never Comment: Low fall Patient Tobacco Use Status: Former Tobacco user Tobacco use type: Cigarette Cigarette Packs Per Day: 0.5 Cigarettes Per Day: 3 Years Smoked: 48 e-Cigarette/Vaping Use: Never Used Second Hand Smoke Exposure: No Substance Use Type: Marijuana Advance Directives Date on File: 12/22/21 service: No Current occupational status: disabled Current occupation: rt handed Cognitive needs: No Hearing needs: No Vision needs: Yes Physical Exam ED Vital Signs: BMI result Body Mass Index 20.8 Course Course Course Narrative: RMIsaiah, this is a rapid medical exam performed by Rai Nieves please refer to primary provider for complete H&P- 64-year-old female presents for evaluation abdominal pain in the epigastric region in his worse after eating. Plan for labs and ultrasound of the right upper quadrant. Medications Administered Discontinued Medications Generic Name Dose Route Start Last Admin Trade Name Mayra PRN Reason Stop Dose Admin Al Hydroxide/Mg Hydroxide 30 ml 11/16/24 19:40 11/16/24 19:44 Magnesium Hydrox/Alum Hydrox 30 Ml Oral.Susp PO 11/16/24 19:41 30 ml ONCE ONE Administration Lidocaine HCl 15 ml 11/16/24 19:40 11/16/24 19:44 Lidocaine Hcl Viscous 2 % 15 Ml Solution MUCOUS MEM 11/16/24 19:41 15 ml ONCE ONE Administration Ondansetron HCl 4 mg 11/16/24 19:40 11/16/24 19:44 Ondansetron Odt 4 Mg Tab.Rapdis TRANSLINGU 11/16/24 19:41 4 mg ONCE ONE Administration Medical Decision Making Lab Data 11/16/24 13:50 11/16/24 13:50 Labs: Lab Results 11/16/24 11/16/24 11/16/24 Range/Units 13:49 13:50 14:43 WBC 7.6 (4.8-10.8) X10*3/uL RBC 4.56 (4.20-5.50) X10*6/uL Hgb 13.3 (12.0-16.0) g/dl Hct 40.5 (37.0-47.0) % MCV 88.8 (80.0-98.0) fL MCH 29.2 (27.0-33.0) pg MCHC 32.8 (31.0-35.0) g/dl RDW 15.4 (11.0-16.0) % Plt Count 292 D (160-400) X10*3/uL MPV 11.1 (9.4-12.3) fL Immature Gran % (Auto) 0.3 (0.0-0.4) % Neut % (Auto) 57.1 (45-73) % Lymph % (Auto) 35.4 (20-40) % [place] % (Auto) 5.4 (2-11) % Eos % (Auto) 1.3 (0-4) % Baso % (Auto) 0.5 (0-2) % Lymph # (Auto) 2.7 (1.2-4.9) X10*3/uL [place] # (Auto) 0.4 (0.1-1.2) X10*3/uL Eos # (Auto) 0.1 (0.0-0.4) X10*3/uL Baso # (Auto) 0.0 (0.0-0.2) X10*3/uL Abs Immat Gran (auto) 0.02 (0.00-0.03) X10*3/uL Absolute Neuts (auto) 4.3 (2.0-8.3) x10*3/uL Absolute Nucleated RBC 0.000 (0.0-0.012) X10*3/uL Nucleated RBC % (auto) 0.0 (0.0-0.2) /100WBC Sodium 144 (135-145) mmol/L Potassium 4.7 (3.3-5.1) mmol/L Chloride 111 H (96-108) mmol/L Carbon Dioxide 26 (22-29) mmol/L Anion Gap 12 (12-20) BUN 11 (9-16) mg/dL Creatinine 0.83 (0.5-1.4) mg/dL Estim Creat Clear Calc 45.3 Estimated GFR > 60 Random Glucose 95 (60-115) mg/dL Calcium 9.7 (8.4-10.2) mg/dL Total Bilirubin 0.3 (0.0-1.0) mg/dL AST 26 (5-31) U/L ALT 28 (0-31) U/L Alkaline Phosphatase 64 (39-117) U/L Troponin I High Sens 5.1 D (<3.5-17.0) ng/L Total Protein 7.7 (6.5-8.0) g/dL Albumin 4.5 (3.5-5.0) g/dL Lipase 33 (8-78) U/L Urine Color Yellow Urine Appearance Clear Urine pH 6.5 (5.0-9.0) Ur Specific [place] 1.010 (1.005-1.025) Urine Protein Negative (Neg-Trace) mg/dL Urine Glucose (UA) Negative (Negative) mg/dL Urine Ketones Negative (Negative) mg/dL Urine Blood Negative (Negative) Urine Nitrite Negative (Negative) Ur Leukocyte Esterase Negative (Negative) Urine RBC 0-2 (0-2) /HPF Urine WBC 0-5 (0-5) /HPF Ur Squamous Epith Cells 0-2 (0-2) /HPF Urine Bacteria None Seen (None Seen) Hyaline Casts 0-2 (0-2) /LPF Discharge Plan Discharge Clinical Impression: Abdominal pain Patient Disposition: Left W/O Completing Treatment Prescriptions: No Action (DME) walker Misc See Rx Instructions .Route Qty: 1 0RF Rx Instructions: with seat Trulicity 1.5 mg/0.5 mL pen injector 1.5 mg subcut TH@0900 Qty: 6 3RF (DME) Shower Chair Misc See Rx Instructions .Route Qty: 1 0RF Rx Instructions: As directed (DME) clamp on tub safety rail See Rx Instructions .Route .MEDSUPPLY Qty: 1 0RF Rx Instructions: As directed (DME) ez collar baster jumpbasting bed assist support See Rx Instructions .Route .MEDSUPPLY Qty: 1 0RF Rx Instructions: As directed famotidine 20 mg tablet 20 mg PO BEDTIME 90 Days Qty: 90 1RF aspirin 81 mg tablet,delayed release (DR/EC) 81 mg PO DAILY 90 Days Qty: 90 1RF (DME) lancets [FreeStyle Lancets] 28 gauge misc See Rx Instructions .Route Qty: 100 3RF Rx Instructions: Use 1 lancet once a day Brilinta 90 mg tablet 90 mg PO BID Qty: 90 2RF (DME) FreeStyle Lite Strips Strip MISCELLANEOUS DAILY Qty: 100 1RF Rx Instructions: Use 1 test strip three times a day pregabalin 200 mg capsule 200 mg PO BID Qty: 60 4RF ondansetron 4 mg tablet,disintegrating 4 mg PO Q8H PRN (Reason: nausea and vomiting) Qty: 20 0RF tramadol 50 mg tablet 50 mg PO Q6H PRN (Reason: pain) Qty: 20 0RF ilesmviuao-inionwrheejgo-srso 50-325-40 mg tablet 1 tab PO Q6H PRN (Reason: haeadace) Qty: 20 0RF (DME) pen needle, diabetic [Comfort EZ Pen [place]] 31 gauge x 5/16 needle See Rx Instructions .ROUTE .MEDSUPPLY Qty: 200 11RF Rx Instructions: Use 1 pen needle 6 times a day albuterol sulfate 90 mcg/actuation HFA aerosol inhaler 2 inh inhalation Q4H PRN (Reason: Shortness Of Breath Or Wheezing) (DME) blood pressure monitor Kit See Rx Instructions .Route Qty: 1 0RF Rx Instructions: As directed Trelegy Ellipta 200-62.5-25 mcg blister with device 1 ea inhalation DAILY simethicone 125 mg capsule 125 mg PO DAILY PRN (Reason: gas pain) Qty: 30 0RF pantoprazole 40 mg tablet,delayed release (DR/EC) 40 mg PO DAILY 90 Days Qty: 90 1RF nicotine 14 mg/24 hr patch 24 hour 1 patch topical DAILY metoprolol succinate 25 mg tablet extended release 24 hr 25 mg PO DAILY nicotine (polacrilex) 2 mg gum PO trazodone 50 mg tablet 50 mg PO BEDTIME PRN (Reason: sleep) 90 Days Qty: 90 0RF (DME) blood pressure test kit-medium Kit See Rx Instructions .Route Qty: 1 0RF Rx Instructions: As directed hydroxychloroquine [Plaquenil] 200 mg tablet 200 mg PO DAILY Qty: 90 1RF mirtazapine 15 mg tablet 15 mg PO BEDTIME Qty: 90 1RF methotrexate sodium 2.5 mg tablet 15 mg PO QWEEK Qty: 72 1RF folic acid 1 mg tablet 1 mg PO DAILY Qty: 90 1RF metoclopramide HCl [Reglan] 5 mg tablet 5 mg PO TID PRN (Reason: nausea and vomiting) 30 Days Qty: 90 1RF Rx Instructions: Take 30 min before lunch and dinner and at bedtime Discharge Date/Time: 11/16/24 21:16
[2024-11-16 14:15] LABS: MANUAL DIFF FLAG NO
[2024-11-16 14:19] LABS: Appearance Urine Clear; Color Urine Yellow; Glucose Urine UA Negative (Negative); Leukocyte Esterase Urine Negative (Negative); Nitrite Urine Negative (Negative); PH 6.5 (5.0-9.0); Urine Blood Negative (Negative); Urine Ketones Negative (Negative); Urine Protein Negative (Neg-Trace)
--- NOTE | 2024-11-16 14:23 | ECG_ITS ---
Test Reason : PAIN Blood Pressure : / mmHG Vent. Rate : 092 BPM Atrial Rate : 092 BPM P-R Int : 130 ms QRS Dur : 082 ms QT Int : 332 ms P-R-T Axes : 077 078 044 degrees QTc Int : 410 ms Sinus rhythm with occasional Premature ventricular complexes Otherwise normal ECG When compared with ECG of 02-NOV-2024 09:36, Premature ventricular complexes are now Present Nonspecific T wave abnormality has replaced inverted T waves in Lateral leads Referred By: King Nieves Electronically Signed By:MARIA ELENA APODACA MD
[2024-11-16 14:24] LABS: Bacteria Urine None Seen (None Seen); Hyaline Casts Urine 0-2 /LPF (0-2); RBC Urine 0-2 /HPF (0-2); Squamous Epithelial Cell Urine 0-2 /HPF (0-2); WBC Urine 0-5 /HPF (0-5)
[2024-11-16 14:27] LABS: Basophils Percent Auto 0.5 % (0-2); Eosinophils Absolute Auto 0.1 X10*3/uL (0.0-0.4); Eosinophils Percent Auto 1.3 % (0-4); Hematocrit 40.5 % (37.0-47.0); Hemoglobin 13.3 g/dl (12.0-16.0); Imm Gran Abs Auto 0.02 X10*3/uL (0.00-0.03); Imm Gran Pct Auto 0.3 % (0.0-0.4); Lymphocytes Absolute Auto 2.7 X10*3/uL (1.2-4.9); Lymphocytes Percent Auto 35.4 % (20-40); Mean Corpuscular HGB Conc 32.8 g/dl (31.0-35.0); Mean Corpuscular Hemoglobin 29.2 pg (27.0-33.0); Mean Corpuscular Volume 88.8 fL (80.0-98.0); Mean Platelet Volume 11.1 fL (9.4-12.3); Monocytes Absolute Auto 0.4 X10*3/uL (0.1-1.2); Monocytes Percent Auto 5.4 % (2-11); Neutrophils Absolute Auto 4.3 x10*3/uL (2.0-8.3); Neutrophils Percent Auto 57.1 % (45-73); Platelet Count 292 X10*3/uL (160-400); Red Blood Count 4.56 X10*6/uL (4.20-5.50); Red Cell Distribution Width 15.4 % (11.0-16.0); White Blood Count 7.6 X10*3/uL (4.8-10.8)
[2024-11-16 14:33] LABS: Alanine Aminotransferase 28 U/L (0-31); Albumin Level 4.5 g/dL (3.5-5.0); Alkaline Phosphatase 64 U/L (39-117); Anion Gap 12 (12-20); Aspartate Amino Transferase 26 U/L (5-31); Bilirubin Total 0.3 mg/dL (0.0-1.0); Blood Urea Nitrogen 11 mg/dL (9-16); Calcium 9.7 mg/dL (8.4-10.2); Carbon Dioxide 26 mmol/L (22-29); Chloride 111 mmol/L (96-108); Creatinine Clr Calc Pharmacy 45.3; Estimated Glomerular Filt Rate > 60; Glucose Random 95 mg/dL (60-115); Lipase 33 U/L (8-78); Potassium 4.7 mmol/L (3.3-5.1); Sodium 144 mmol/L (135-145); Total Protein 7.7 g/dL (6.5-8.0)
[2024-11-16 15:24] LABS: Troponin-I High Sensitivity 5.1 ng/L (<3.5-17.0)
[2024-11-16 19:41] VITALS: BP 150/84; PULSE 100; RESP 20; TEMP 36.6; O2SAT 96
[2024-11-16] MEDS: Lidocaine HCl Viscous 2 % 15 ML SOLUTION MUCOUS MEM (19:44)
[2024-11-16] MEDS: Magnesium Hydrox/Alum Hydrox 30 ML ORAL.SUSP PO (19:44)
[2024-11-16] MEDS: Ondansetron ODT 4 MG TAB.RAPDIS TRANSLINGU (19:44)
== END 2024-11-16 21:16 | disposition left against medical advice (07) ==
PROVIDERS: Physician Assistant; Emergency Provider Emergency Medicine; PCP Internal Medicine
DX: R10.13 Epigastric pain (principal)
CPT/HCPCS: 36415; 76705; 80053; 81001; 83690; 84484; 85025; 93005; 99283; 99284

== ENCOUNTER → 2024-11-16 12:47 | Outpatient (BNV) | payer OTHER, SELFPAY ==
[2024-07-16 09:49] VITALS: BP 96/60; BP 96/66; BMI 22.5
== END ==
PROVIDERS: PCP Internal Medicine; Visit Provider Radiology Diagnostic Radiology
DX: R10.11 Right upper quadrant pain (principal)
CPT/HCPCS: 76705

== ENCOUNTER → 2024-11-16 14:23 | Outpatient (BNV) | payer OTHER, SELFPAY ==
[2024-07-16 09:49] VITALS: BP 96/60; BP 96/66; BMI 22.5
== END ==
PROVIDERS: Emergency Provider Emergency Medicine; PCP Internal Medicine; Visit Provider Internal Medicine Cardiovascular Disease
DX: I49.3 Ventricular premature depolarization (principal)
CPT/HCPCS: 93010

== ENCOUNTER 2024-11-19 11:49 | Outpatient (AMB) | payer OTHER, SELFPAY ==
[2024-07-16 09:49] VITALS: BP 96/60; BP 96/66; BMI 22.5
--- NOTE | 2024-11-19 12:15 | A.OFFVIS_ITS ---
Vital Signs 11/19/24 12:17 Height 4 ft 10 in Weight 99 lb BMI 20.7 BP 107/52 L Blood Pressure Location Lt brachial Position Sitting Pulse 75 Intake Visit Reasons: chronic abdominal pain Intake Note: Patient follow up from ER for stabbing pain in stomach w/ eating or drinking. Patient cc: abdominal pain/bloating, diarrhea with food and some swallowing problems, denies any other GI issues. Tape Duplicator Required: No Accompanied by: Self / Same As Patient Allergies methylprednisolone Allergy (Severe, Verified 11/19/24 12:14) Rash from Solu-Medrol shellfish derived Allergy (Intermediate, Verified 11/19/24 12:14) Hives etanercept [From Enbrel] Adverse Reaction (Severe, Verified 11/19/24 12:14) Facial Swelling metformin Adverse Reaction (Severe, Verified 11/19/24 12:14) Diarrhea metronidazole [From FLAGYL] Adverse Reaction (Severe, Verified 11/19/24 12:14) Diarrhea prednisone Adverse Reaction (Intermediate, Verified 11/19/24 12:14) hallucinations, more than 20 mg doses Medication List - Last Reconciled 11/19/24 by Ruth Roman MD albuterol sulfate 90 mcg/actuation 2 inhalations inhalation Q4H PRN aspirin 81 mg PO DAILY 90 days blood pressure monitor As directed blood pressure test kit-medium As directed blood sugar diagnostic (FreeStyle Lite Strips) Use 1 test strip three times a day ankyagiigs-indfocbdtoyem-ghmm 50-325-40 mg 1 tab PO Q6H PRN [clamp on tub safety rail As directed] dulaglutide (Trulicity) 1.5 mg (0.5 mL) subcut TH@0900 [ez supervisor blast furnace bed assist support As directed] famotidine 20 mg PO BEDTIME 90 days jlkeljbcytj-bmkztfayj-gvpeiibg 200-62.5-25 mcg (Trelegy Ellipta) 1 ea inhalation DAILY folic acid 1 mg PO DAILY lancets (FreeStyle Lancets) Use 1 lancet once a day letrozole 2.5 mg PO DAILY methotrexate sodium 15 mg (6 x 2.5 mg) PO QWEEK metoprolol succinate ER 25 mg PO DAILY nicotine 1 patch topical DAILY nicotine (polacrilex) mg PO ondansetron 4 mg PO Q8H PRN pantoprazole 40 mg PO DAILY 90 days pen needle, diabetic (Comfort EZ Pen Swengel) Use 1 pen needle 6 times a day pregabalin 200 mg PO BID rosuvastatin 20 mg PO DAILY Shower Chair As directed simethicone 125 mg PO DAILY PRN ticagrelor (Brilinta) 90 mg PO BID tramadol 50 mg PO Q6H PRN trazodone 100 mg PO BEDTIME 90 days trazodone 50 mg PO BEDTIME PRN 90 days walker with seat HPI HPI chronic abdominal pain: Details: GI CLINIC VISIT FOR THIS 64-YEAR-OLD FEMALE FOR FU OF GERD AND DYSPHAGIA PT IS KNOWN TO ME FROM PAST GI VISITS FOR COLITIS SEEN ON CT SCAN AND FOR POSITIVE HEP A AB (IG M) 04/15/24 Pt had Hand assisted laparoscopic sigmoid colectomy with colorectal anastomosis by Dr Rodriguez HAD BRONCHOSCOPY ON 08/16? , FOUND TO HAVE GENERALIZED INFLAMMATION.? AND ENDOBRONCHIAL LESION IN THE RIGHT LOWER LOBE WAS SUSPECTED. BIOPSY AND CYTOLOGY IS CONSISTENT WITH MILD INFLAMMATORY CHANGES, NO METAPLASIA NEOPLASTIC CELLS. TODAY'S VISIT: Follow up from ER for stabbing pain in stomach w/ eating or drinking. Patient cc: abdominal pain/bloating, diarrhea with food and some swallowing problems, Seen at [facility] on 11/16/24 - had sharp stabbing pains in the abdomen every time she eats or drinks anything. Pain started 2 weeks after she was admitted to [facility] 10/19/24 with an CO Pt had a burning and bad stabbing pain in the upper abdomen radiating to LUQ. Abd pain comes and goes every time she eats and drinks anything - gets nauseated Can have intermittent vomiting if the nausea is bad - smells and tastes like beer. Vomitus is light yellow with chunks of food Abdominal pain gets worse after the vomiting episode. Has had 3 episodes of diarrhea over the past 2 weeks. Having soft stools - had to go to the bathroom at night Stools have a lot of mucous and no blood. PAST VISITS: 08/04/24 H Pylori breath test was positive and pt was treated with I feel great since the surgery - have been eating a little more. Finished antibiotics last week - Tetracycline and Levo Resumed MTX - noted pain in her knees and big toe while she was off the MTX. Constipated last week - forgot to go to the bathroom. Started taking the Senna twice a day - finally able to go after 3 days. PAST VISITS: Noted nausea and decreased appetite with wt loss Ran out of Pantoprazole and forgot to refill it Having symptoms of regurgitation and heartburn and taking Famotidine. Stopped Lisinopril and feels a little better. Notes dizziness - states she has been drinking fluids - takes 1.5 litres of water daily. Has been constipated and has been taking Senna Took Senna plus and it helps intermittently Smokes 4 cigg/day and trying to cut back Unable to tolerate Chantix Pt states abdominal pain has resolved. Continues to have constipation - pt states its better Has a BM once a day with hard stools - planning to start taking Senna for constipation Unable to regain the wt she lost. Has been eating though not a lot. Taking Boost twice a day. Patient follow up from ED due bloody diarrhea. Patient cc: abdominal pain, nauseas, diarrhea, swallowing problems with sticky food and her saliva. I am in pain with nausea and diarrhea. Stomach really hurts Taking mesalamine 3 tablets daily Noted diarrhea since last night - 2 BMs last night and one this am. Had hard stools prior to that. Prescribed Trulance and was not covered by her insurance. Has a BM once a week when she is constipated. Started on MTX 15 mg once a week for RA by her Cane Flume Feeding Machine Operator I havent been feeling good since I left the hospital Generalized body aches, diarrhea and constipation. Has constipation for a week and then diarrhea for 2 days. Taking Amitiza daily for constipation. Seen by [employer] and was told she had stage 3 kidney disease Lab results reviewed - IBD serology suggestive of Crohn's disease Pt seen at [facility] on 05/16/23 with chest pain and dubois was negative. Pt is on sulfasalazine for RA which is on hold to see if nausea gets better. 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 Unable to take biologics for RA due to COPD. Tried Humira and had to be stopped due to facial swelling. Tried Embril and was stopped due to worsening COPD. She was told by her Cane Flume Feeding Machine Operator that she is unable to use biologics Wt loss from 140 in Dec, 2021 to 115 lbs since she is eating less. Hospitalized with NSTEMI in Dec, 2021 and had 2 stents. Taking aspirin and Brilinta twice a day Had an MRI on the brain and changes noted on the right and left side Waiting to see a Neurologist. Has COPD and asthma. Patient denies known family history of colon polyps or colon cancer IMAGING STUDIES:? 10/15/23 GASTRIC EMPTYING STUDY SHOWED: 1 hour 64% (normal 37%-90%) 2 hours 50% (normal 30%-60%) 3 hours 33% 4 hours 13% (normal 0%-10%) NM/NM gastric emptying study IMPRESSION: Abnormal grade 1 delayed 4 hour gastric emptying study. US WITH DUPLEX: Elevated velocity in the proximal superior mesenteric artery is nonspecific. By velocity criteria, this is consistent with hemodynamically significant stenosis. However, the distal waveforms are not indicative of significant upstream disease and there is no significant stenosis seen on CT from 02/01/2023. 10/2022 BARIUM SWALLOW SHOWED:Following oral administration of thick, thin barium and barium-coatedturkey in upright view, there is normal propagation of bolus from the oral cavity through the pharynx, esophagus into stomach without obstruction, narrowing or stricture. There is mild prominence of cricoesophageal sphincter indenting the upper esophagus. There is mild ventral spondylosis at the C5-C6 and C6-C7 disc levels with minimal indentation on the posterior cervical esophageal wall. However, there is no obstruction. On oral administration of barium tablet, there is transient holdup in the mid esophagus and slightly longer in the distal esophagus. 02/21/22 ABD US SHOWED: 1.? Increased hepatic echogenicity suggesting hepatic steatosis. 2.? Nonobstructive calculus in the right renal lower pole measuring 3 mm. 02/[address] SCAN SHOWED:A cause for the patient's diffuse abdominal pain has not been found.Incidental note made of: 1.? Hepatic steatosis. 2.? Small stable adrenal nodule, unchanged over many years 3.? Status post hysterectomy. 08/[address] SCAN SHOWED:Mild bowel wall thickening of the sigmoid colon which could be due to mild colitis. There is no surrounding pericolonic edema however. There is no bowel obstruction. ENDOSCOPIC STUDIES: 12/12/23 FLEX SIG SHOWED: Flexible sigmoidoscopy Findings: Friable appearing mucosa with patchy erythema in the left colon without ulcerations - random biopsies were obtained. cw resolving colitis No polyps were detected. Moderate diverticulosis seen in the left colon No blood seen in the left colon during sigmoidoscopy Plan: Above findings were reviewed with the patient. BIOPSIES SHOWED: Colon, left, biopsy: Colonic mucosa with lamina propria hemorrhage, partial surface epithelial loss, and scattered neutrophils consistent with active colitis (see comment). Comment: The differential includes infectious, early ischemia, drugs, dive rticular disease, and early Crohn's. There is no evidence of chronic colitis, granulomas or dysplasia 05/2023 CAPSULE ENDOSCOPY SHOWED: Findings: Lower esophagus looked normal, stomach with granular mucosa and patchy erythema consistent with chronic gastritis small bowel entered at 2 hr 36 min min. Mucosa well visualized and appeared normal, no masses, lesions or ulcers seen. cecum entered at 4 hr 44 min and colonic mucosa looked normal Conclusion: chronic gastritis, other santiago neg small bowel study 06/15/22 EGD SHOWED:ESOPHAGUS: Tortuous esophagus with increased tertiary contractions without stricture or ring.?GE junction at 36 cms. No esophagitis or Austin's.STOMACH: Moderate diffuse gastric erythema - no ulcers were seen. Biopsies were obtained from gastric antrum and body. DUODENUM: Normal - biopsied to check for celiac sprue Plan:? Further evaluation with a Duplex US to rule out small bowel ischemia [place] of Dicyclomine prn while awaiting further workup. BIOPSIES SHOWED: A.? Small bowel, biopsy:? Small bowel mucosa with preserved villi and no specific change; no evidence of celiac disease. B.? Gastric antrum, biopsy:? Chronic Helicobacter gastritis with minimal activity and focal intestinal metaplasia; negative for dysplasia.? C.? Gastric body, biopsy:? Chronic Helicobacter gastritis with minimal activity; negative for intestinal metaplasia and dysplasia. 03/24/21 COLONOSCOPY SHOWED: No polyps were detected.Random biopsies were obtained from the right and left colon Moderate to severe diverticulosis seen in the entire colonOf note pt denies additional episodes of fecal incontinence. Plan:? Patient has an appointment on 04/20/21 in the GI Clinic with Ruth Roman M.D. Repeat Colonoscopy in 10 years if biopsies are normal. A handout on diverticulosis was were given in the discharge area BIOPSIES SHOWED: A.? Colon, right, biopsy:? Colonic mucosa within normal limits. B.? Colon, left, biopsy:? Colonic mucosa within normal limits. COMMENT: Diagnostic features of microscopic colitis are not seen. 08/2019:? Colonoscopy Findings:Edema, erythema with friable appearing mucosa and scattered ulcerations from 10to 30 cms - random biopsies obtained. Colon inflammation can be due to ischemiccolitis or stercoral ulcers related to constipation and irritation of the colon from hard stools. No polyps were detected Moderate to severe diverticulosis seen in the left colon. Plan: Await pathology results. Regular diet today. Start Miralax once daily for constipation. Continue IV antibiotics x 24 hours and then switch to PO antibiotics in the am for another 3 days. Patient to be scheduled for a FU appointment in the GI Clinic with Ruth Roman M.D. in 1-2 weeks. Above findings were reviewed with the patient. BIOPSIES SHOWED: Colon, left, biopsies: Colonic mucosa with focal superficial epithelial sloughing, hemorrhage and hyalinization possibly representing early ischemic colitis;? 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 Acute respiratory distress Tendonitis of ankle or foot Cough Stable angina Anxiety CAD (coronary artery disease) HLD (hyperlipidemia) HTN (hypertension) COPD exacerbation Hyperkalemia Atherosclerotic cardiovascular disease Hospital discharge follow-up Colitis CVA (cerebral vascular accident) (~2018) Breast pain, right Rash Bloody diarrhea PAD (peripheral artery disease) Hyperlipidemia LDL goal <100 COPD (chronic obstructive pulmonary disease) Infiltrating ductal carcinoma of left breast, stage 2 Insomnia Dyslipidemia Bipolar 1 disorder, depressed Cough Restrictive airway disease Hypothyroid IDDM (insulin dependent diabetes mellitus) Vitamin D deficiency Osteoporosis Breast cancer Hyperparathyroidism Thyroid nodule T2DM (type 2 diabetes mellitus) Depression Fibromyalgia Seropositive rheumatoid arthritis Reactive airways dysfunction syndrome Allergic rhinitis Irritable bowel Anxiety Bronchial asthma Diabetes type 2, uncontrolled Surgical History S/P laparoscopic colectomy (04/15/24) Hx of sigmoidoscopy History of bronchoscopy Hx of endoscopy H/O cardiac catheterization History of lumpectomy of left breast History of pubovaginal sling History of esophagogastroduodenoscopy (EGD) History of tubal ligation History of colonoscopy History of bunionectomy of both great toes H/O: hysterectomy Family History Mother Diabetes HTN (hypertension) Uterus cancer Malignant tumor of head Breast cancer Father Diabetes HTN (hypertension) CVD (cardiovascular disease) Heart problem Maternal Aunt Breast cancer Brother Myocardial infarction S/P CABG x 4 Family/Other FH: mental illness Family/Other Lung cancer Other Mental health disorder Social History Household Members: Family Household Members Other:: sister Housing: House Are you a primary home care associate to a significant other at home: No Do you presently have visiting nurse or other home services: No Unable to assess alcohol history related to: Unknown Alcohol intake: former Comment: Low fall Patient Tobacco Use Status: Former Tobacco user Tobacco use type: Cigarette Cigarette Packs Per Day: 0.5 Cigarettes Per Day: 3 Years Smoked: 48 e-Cigarette/Vaping Use: Never Used Second Hand Smoke Exposure: No Substance Use Type: Marijuana Advance Directives Date on File: 12/22/21 service: No Current occupational status: disabled Current occupation: rt handed Cognitive needs: No Hearing needs: No Vision needs: Yes Review of Systems Const All systems reviewed & are unremarkable except as noted in HPI and below Physical Exam Vital Signs: Last Vital Signs Pulse 75 11/19/24 12:17 BP 107/52 L 11/19/24 12:17 BMI result Body Mass Index 20.7 Const General: no acute distress Nutritional Appearance: average body habitus Orientation/consciousness: patient oriented x3 Limitations: no limitations HEENT Head: Yes normal to inspection Ears: hearing grossly normal bilaterally Mouth: Normal oral and palatal mucosa present Eyes Sclerae: sclerae normal Pupils: Equal, round and reactive pupils present Neck Neck: Yes normal visual inspection Chest Chest palpation & inspection: normal inspection of the chest Resp Effort & Inspection: normal respiratory effort Auscultation: clear to auscultation bilaterally Cardio Palpation: normal PMI Rate: regular rate Rhythm: regular rhythm Heart sounds: S1 normal heart sound present, S2 normal heart sound present and no murmurs GI Palpation (GI): Soft to palpation, Tenderness to palpation present (GI) (mild epigastric tenderness) and No hepatosplenomegaly present Auscultation: normal bowel sounds Rectal Exam - Female: deferred Skin General skin exam: no rashes or lesions noted Neuro General: patient oriented x3, gait normal and moves all extremities Cranial nerves: Yes Equal, round and reactive pupils present Psych Appearance: grossly normal Mental Status: mental status grossly normal Quality Reporting (2019) Adult ([facility] 138/[birth year]) Smoking risk assessment performed?: Yes Patient Tobacco Use Status: Former Tobacco user Assessment & Plan Assessment & Plan (1) Transaminitis: Code(s): R74.01 - Elevation of levels of liver transaminase levels Category: Medical (2) Helicobacter pylori infection: Code(s): A04.8 - Other specified bacterial intestinal infections Category: Medical (3) GERD (gastroesophageal reflux disease): Code(s): K21.9 - Gastro-esophageal reflux disease without esophagitis Category: Medical (4) Gastroparesis: Code(s): K31.84 - Gastroparesis Category: Medical (5) Colitis: Code(s): K52.9 - Noninfective gastroenteritis and colitis, unspecified Category: Medical (6) Upper abdominal pain: Code(s): R10.10 - Upper abdominal pain, unspecified Category: Medical Plan 64 YF with rheumatoid arthritis--[facility]-discharged, COPD, fibromyalgia, asthma, Elevated levels of transaminases? & lactic acid dehydrogenase, Hepatic steatosis Thalamic pain syndrome,? H. pylori infection - treated, IBS (irritable bowel syndrome), TIA'S, urinary incontinence, chronic bronchitis, anxiety, depression, diabetes mellitus, left breast? cancer. Patient followed in GI for GERD and long standing constipation?likely due to IBS with constipation/ slow transit due to medications. Partial? improvement with Senna 1-2 tablet at? bedtime. Patient was diagnosed with Helicobacter pylori gastritis on EGD in?06/2018 and was treated with triple therapy. 06/2021 FU stool antigen for H pylori was negative Pt was advised to start Pantoprazole twice daily for GERD She has a hx of dysphagia likely due to esophageal motility disorder - no stricture or EOE noted on past EGD. Pt has been followed recently for upper abdominal pain, nausea and vomiting with decreased PO intake and wt loss 06/15/22 EGD was performed in findings as noted above Pt was advised to use a Foam Wedge at night and take famotidine at bedtime for nighttime reflux symptoms. If symptoms persist she may need further evaluation with Esophageal manometry and pH testing prior to considering fundoplication. 01/10/23 Pt seen with worsening symptoms, stopped taking Pantoprazole 2 months ago and advised to resume and take Famotidine prn for breakthrough symptoms 02/01/23 Pt complains of abd pain, bloating with diarrhea and black stools x past 3 days with weakness and dizziness Patient was advised to go to [facility] for further evaluation with labs and repeat CT scan (for Fu of ischemic colitis) Pt had a stable Hct and stool occult blood was negative 04/05/23 Pt advised to have labs and schedule an abd US with doppler to rule out mesenteric ischemia which was negative Stool calprotectin was borderline at 92. C1q, C1 estrase inhibitor protein and C4 were normal 04/29/23 IBD serologies were suggestive of Crohn's disease 06/03/23 Capsule Endoscopy showed: Conclusion: chronic gastritis, other santiago neg small bowel study . 08/16/23 Pt advised to start Lialda 2.4 grams daily for suspected Crohn's disease (Abd pain, nausea, fecal calprotectin of 92 and IBD serologies positive for Crohn's disease) Referral was sent to urology for follow-up of kidney stones Records requested from [facility] ER visit on 08/10/23 09/19/23 Continues to have nausea, bloating, gas and poor appetite Notes early satiety and denies vomiting. Hx of long standing DM. Pt advised to increase Amitiza to 16 mcg twice a day and to schedule a GES 01/23/24 Prescribed Trulance and was not covered by her insurance. Has a BM once a week when she is constipated. Started on MTX 15 mg once a week for RA by her Cane Flume Feeding Machine Operator which should help her Crohn's disease Complains of pain and tinging in her left foot and has a FU appt with her PCP on 01/29/24 06/04/24 Notes resolution of abdominal pain after hand assisted laparoscopic sigmoid colectomy with colorectal anastomosis Continues to have constipation and planning to start Senna 08/04/24 Pt advised to resume Pantoprazole 40 mg daily Increase fluid intake H Pylori breath test today Continue to work on quitting smoking 09/24/24 08/04/24 H Pylori breath test was positive and pt was treated with Bismuth, Tetracycline and Levofloxacin (Failed Calrithromycin) Finished antibiotics last week - Tetracycline and Levo Resumed MTX - noted pain in her knees and big toe while she was off the MTX. Constipated last week - forgot to go to the bathroom. Started taking the Senna twice a day - finally able to go after 3 days. 11/19/23 Seen at [facility] on 11/16/24 - had sharp stabbing pains in the abdomen every time she eats or drinks anything. Pain started 2 weeks after she was admitted to [facility] 10/19/24 with an CO Pt had a burning and bad stabbing pain in the upper abdomen radiating to LUQ. Abd pain comes and goes every time she eats and drinks anything - gets nauseated Can have intermittent vomiting if the nausea is bad - smells and tastes like beer. Also complains of loose to soft stools Pt has mild gastroparesis on GES in the past (13% at 4 hrs) Pt advised stool studies Start metoclopramide 5 mg TID for gastroparesis. She will be scheduled for an EGD for further evaluation of abdominal pain FU in 2 months - has appt on 01/21/25 Orders: Orders CDiff Gene PCR Today R10.10 - Upper abdominal pain, unspecified Fecal Fat Qualitative Today R10.10 - Upper abdominal pain, unspecified Calprotectin, Fecal Today R10.10 - Upper abdominal pain, unspecified Medications: New metoclopramide HCl (Reglan) Take 30 min before lunch and dinner and at bedtime 5 mg PO TID 30 days PRN 90 tabs 1RF nausea and vomiting K31.84 - Gastroparesis Coding Level of Care Code Est Pt Level 3 (11253) Diagnoses Transaminitis R74.01 Helicobacter pylori infection A04.8 Gastroesophageal reflux disease without esophagitis K21.9 Gastroparesis K31.84 Colitis K52.9 Upper abdominal pain R10.10 Time Spent (min) 25
[2024-11-19 12:17] VITALS: BP 107/52; PULSE 75; BMI 20.7
== END 2024-11-19 13:22 | disposition home or self-care (01) ==
PROVIDERS: PCP Internal Medicine; Visit Provider Internal Medicine Gastroenterology
DX: R74.01 Elevation of levels of liver transaminase levels (principal); A04.8 Other specified bacterial intestinal infections; K21.9 Gastro-esophageal reflux disease without esophagitis; K31.84 Gastroparesis; K52.9 Noninfective gastroenteritis and colitis, unspecified; R10.10 Upper abdominal pain, unspecified
CPT/HCPCS: 99213

== ENCOUNTER → 2024-11-19 11:49 | Outpatient (BNVA) | payer OTHER, SELFPAY ==
[2024-07-16 09:49] VITALS: BP 96/60; BP 96/66; BMI 22.5
== END ==
PROVIDERS: PCP Internal Medicine; Visit Provider Internal Medicine Gastroenterology
DX: K21.9 Gastro-esophageal reflux disease without esophagitis (principal); R74.01 Elevation of levels of liver transaminase levels; K31.84 Gastroparesis; K52.9 Noninfective gastroenteritis and colitis, unspecified; R10.10 Upper abdominal pain, unspecified; A04.8 Other specified bacterial intestinal infections
CPT/HCPCS: 99212

== ENCOUNTER → 2024-11-23 11:12 | Outpatient (BNV) | payer OTHER, SELFPAY ==
[2024-07-16 09:49] VITALS: BP 96/60; BP 96/66; BMI 22.5
== END ==
PROVIDERS: Emergency Provider Emergency Medicine Emergency Medical Services; PCP Internal Medicine; Visit Provider Internal Medicine
DX: R07.9 Chest pain, unspecified (principal)
CPT/HCPCS: 93010

== ENCOUNTER → 2024-11-23 14:03 | Outpatient (BNV) | payer OTHER, SELFPAY ==
[2024-07-16 09:49] VITALS: BP 96/60; BP 96/66; BMI 22.5
== END ==
PROVIDERS: Emergency Provider Emergency Medicine Emergency Medical Services; PCP Internal Medicine; Visit Provider Radiology Diagnostic Radiology
DX: R07.9 Chest pain, unspecified (principal)
CPT/HCPCS: 71045

== ENCOUNTER 2024-11-25 09:35 | Outpatient (REF) | payer OTHER, SELFPAY ==
[2024-07-16 09:49] VITALS: BP 96/60; BP 96/66; BMI 22.5
--- NOTE | ~2024-11-25 | MM_ITS ---
EXAMINATION: MM SCREENING DIGITAL BREAST TOMOSYNTHESIS, BILATERAL CLINICAL INFORMATION: Screening. Asymptomatic. COMPARISON: Mammography: Comparison is made with available priors TECHNIQUE: Digital breast mammography with tomosynthesis is performed in both the craniocaudal and mediolateral oblique views along with computer-aided detection (CAD). FINDINGS: The breasts are heterogeneously dense, which may obscure small masses (ACR BI-RADS breast composition Category c). Left post lumpectomy changes are stable. There are no significant masses, abnormal calcifications, or other abnormalities. MM/MM tomosynthesis screening BI IMPRESSION: No mammographic evidence of malignancy. Patient complains of pain on the left on and off more towards rib area. Recommend clinical evaluation and if there is focal pain or if deemed clinically significant a diagnostic workup can be ordered and performed. ASSESSMENT: BI-RADS BI-RADS 2 - Benign Findings RECOMMENDATION: Routine annual mammography screening. 1 year F/U This examination should not preclude the clinical evaluation of a suspicious palpable abnormality. This patient's information was entered into a reminder system with a target due date for their next mammogram. Electronically signed by: Mandi Ramirez DO 12/01/2024 04:39 PM [facility]
== END 2024-11-25 09:36 | disposition home or self-care (01) ==
LOC: HO.MAMMO 09:35
PROVIDERS: PCP Internal Medicine; Visit Provider Internal Medicine
DX: Z12.31 Encounter for screening mammogram for malignant neoplasm of breast (principal)
CPT/HCPCS: 77063; 77067

== ENCOUNTER → 2024-11-25 09:45 | Outpatient (BNV) | payer OTHER, SELFPAY ==
[2024-07-16 09:49] VITALS: BP 96/60; BP 96/66; BMI 22.5
== END ==
PROVIDERS: PCP Internal Medicine; Visit Provider Internal Medicine
DX: Z12.31 Encounter for screening mammogram for malignant neoplasm of breast (principal)
CPT/HCPCS: 77063; 77067

== ENCOUNTER 2024-12-01 08:47 | Outpatient (REF) | payer OTHER, SELFPAY ==
[2024-07-16 09:49] VITALS: BP 96/60; BP 96/66; BMI 22.5
--- NOTE | ~2024-12-01 | US_ITS ---
EXAMINATION: US COMPLETE ABDOMEN WITH LIVER ELASTOGRAPHY CLINICAL INFORMATION: Elevated transaminases. COMPARISON: Ultrasound of the abdomen 11/16/2024. No prior elastography. TECHNIQUE: Real-time imaging of the abdominal viscera. Noninvasive ultrasound liver fibrosis assessment is performed using Jonh ElastPQ point quantification shear wave elastography (pSWE) with a C5-2 MHz transducer. Multiple elastography samples are obtained. FINDINGS: PANCREAS: The visualized pancreatic head and body are normal in appearance. The remainder of the pancreas is obscured from visualization by the overlying bowel gas. ABDOMINAL AORTA: No aortic aneurysm is seen. There is aortic atherosclerosis throughout the aorta. INFERIOR VENA CAVA: Visualized portions are normal. LIVER: Liver demonstrates normal size and contour. There is mild decreased density of the parenchyma. There is no focal lesion identified. The right lobe measures 13.2 cm in length. The left lobe measures 9.6 cm in length. Portal flow is hepatopedal. Shear wave liver elastography median stiffness is 1.35 m/s (reference: normal median stiffness is 1.3 m/s or less). IQR/median stiffness to assess sampling precision is 0.07 (reference: good quality data set is IQR/median stiffness of 0.15 or less). GALLBLADDER: The gallbladder is physiologically distended without evidence of stones, sludge, polyps, wall thickening or pericholecystic fluid. COMMON BILE DUCT: Normal in caliber measuring 0.4 cm in diameter. RIGHT KIDNEY: No hydronephrosis. No renal calculi or focal parenchymal lesions. The kidney measures 10.3 cm in maximum dimension. LEFT KIDNEY: No hydronephrosis. No renal calculi or focal parenchymal lesions. The kidney measures 10.4 cm in maximum dimension. SPLEEN: Unremarkable. The spleen measures 8.1 cm in maximum dimension. FREE FLUID: None seen. US/US abdomen comp w elastography IMPRESSION: 1. Mildly increased hepatic echogenicity, without focal lesion identified. Normal contour. 2. Liver elastography: In the absence of other known clinical signs, measurements rule out compensated advanced chronic liver disease. If there are known clinical signs, further testing may be needed for confirmation. 3. Remainder of the examination is normal. REFERENCE: Society of Radiologists in Ultrasound Liver Stiffness Thresholds (2020): LIVER STIFFNESS THRESHOLDS: *Liver Stiffness equal or less than 1.3 m/s: High probability of being normal. *Liver Stiffness less than 1.7 m/s: In the absence of other known clinical signs, rules out compensated advanced chronic liver disease. *Liver Stiffness 1.7-2.1 m/s: Suggestive of compensated advanced chronic liver disease but need further test for confirmation. *Liver Stiffness over 2.1 m/s: Rules in compensated advanced chronic liver disease. *Liver Stiffness over 2.4 m/s: Suggestive of clinically significant portal hypertension. QUALITY OF DATA SET: *IQR/Median value equal or less than 0.15 implies a quality data set. *IQR/Median value over 0.15 implies a poor quality data set. SIGNIFICANT CHANGE FROM PRIOR EXAM: Significant change if liver stiffness measurement is 10% or greater from prior exam. OTHER CONSIDERATIONS: The stage of liver fibrosis may be overestimated in the setting of acute hepatitis, liver inflammation, elevated liver function tests, hepatic vascular congestion, obstructive cholestasis, non-fasting state, and infiltrative diseases such as amyloidosis and lymphoma. In some patients with NAFLD, the liver stiffness thresholds for compensated advanced chronic liver disease may be lower. In causes other than viral hepatitis and NAFLD, liver stiffness thresholds are not well established. Electronically signed by: Jose Costello MD 12/01/2024 04:06 PM [facility] [place]
== END 2024-12-01 08:48 | disposition home or self-care (01) ==
LOC: HO.US 08:47
PROVIDERS: PCP Internal Medicine; Visit Provider Internal Medicine
DX: R74.01 Elevation of levels of liver transaminase levels (principal)
CPT/HCPCS: 76700; 76981

== ENCOUNTER → 2024-12-01 08:49 | Outpatient (BNV) | payer OTHER, SELFPAY ==
[2024-07-16 09:49] VITALS: BP 96/60; BP 96/66; BMI 22.5
== END ==
PROVIDERS: PCP Internal Medicine; Visit Provider Radiology Diagnostic Radiology
DX: R74.01 Elevation of levels of liver transaminase levels (principal)
CPT/HCPCS: 76700

== ENCOUNTER 2024-12-15 10:49 | Outpatient (REF) | payer OTHER, SELFPAY ==
[2024-07-16 09:49] VITALS: BP 96/60; BP 96/66; BMI 22.5
--- NOTE | ~2024-12-15 | XR_ITS ---
CLINICAL HISTORY: M54.2 - Cervicalgia 4 views cervical spine Comparison: None Findings: Normal alignment. No acute fractures or dislocation. Multilevel disc space narrowing and endplate osteophyte formation, as well as facet hypertrophy. No prevertebral soft tissue swelling. IMPRESSION: No acute findings. This document has been electronically signed by: Morena Aragon MD on 12/16/2024 17:37:49
--- NOTE | ~2024-12-15 | XR_ITS ---
CLINICAL HISTORY: M54.6 - Pain in thoracic spine 3 views thoracic spine Comparison: None Findings: Normal vertebral body alignment. Multilevel disc space narrowing and endplate osteophyte formation, as well as facet hypertrophy. No significant degenerative change. IMPRESSION: No acute findings. This document has been electronically signed by: Morena Aragon MD on 12/16/2024 17:43:50
--- NOTE | ~2024-12-15 | XR_ITS ---
CLINICAL HISTORY: M54.50 - Low back pain, unspecified 3 views lumbar spine Comparison: None Findings: Normal alignment. No acute fractures or dislocation. Multilevel disc space narrowing and endplate osteophyte formation, as well as facet hypertrophy. IMPRESSION: No acute findings. This document has been electronically signed by: Morena Aragon MD on 12/16/2024 17:45:49
--- OUTSIDE RECORDS SUMMARY | 2024-12-15 12:49 | XMS_ITS | Clinical Summary ---
Author Organization [facility] Address [address] [place] [address] Phone Care Team Providers Care Hand Folder Name Role Phone Adela Gipson MD Primary Care Provider [phone] Allergies Active Allergy Reactions Criticality Noted Date [...] Visit [facility] [address] [place] [address] Alexi Warren MD [address] [address] Health Maintenance Due Date Last Done Comments [...] Most Recently Relevant to Health Maintenance Insurance [facility] [place] [id number] Care Teams Hand Folder Relationship Specialty Start Date End Date Adela Gipson MD [address] [place], [place] PCP - General Internal Medicine 05/28/22
--- OUTSIDE RECORDS SUMMARY | 2024-12-15 12:49 | XMS_ITS | Clinical Summary ---
Author Organization [facility] [employer] [facility] Address [address] [address] Phone Care Team Providers Care School Based Therapist Name Role Phone Adela Wasserman MD Primary Care Provider Social History Tobacco Use Types Packs/Day Years [...] age to complete this topic Care Teams School Based Therapist Relationship Specialty Start Date End Date Adela Wasserman MD [address] [place] [address] , [address] [facility] D/B/A: [facility] [place], [place] PCP - General Internal Medicine 12/08/24
[2024-12-15 13:07] LABS: Creatinine Urine 217.71 mg/dL; Microalbum/Creatinine Ratio Ur 6.4 ug/mg cr (<30)
[2024-12-15 13:19] LABS: Alanine Aminotransferase 27 U/L (0-31); Alkaline Phosphatase 62 U/L (39-117); Anion Gap 8 (12-20); Aspartate Amino Transferase 35 U/L (5-31); Bilirubin Total 0.2 mg/dL (0.0-1.0); Blood Urea Nitrogen 11 mg/dL (9-16); Carbon Dioxide 23 mmol/L (22-29); Chloride 113 mmol/L (96-108); Cholesterol 109 mg/dL (<200); Estimated Glomerular Filt Rate > 60; Glucose Fasting 109 mg/dL (60-99); HDL Cholesterol 40 mg/dL (>40); LDL Cholesterol Calculated 53 mg/dL (<100); Potassium 4.8 mmol/L (3.3-5.1); Sodium 139 mmol/L (135-145); Total Protein 7.2 g/dL (6.5-8.0); Triglycerides 84 mg/dL (<150)
[2024-12-15 13:33] LABS: Vitamin D 25-OH Total 32.4 ng/mL (>30)
== END 2024-12-15 10:50 | disposition home or self-care (01) ==
LOC: HO.XRAY 10:49
PROVIDERS: PCP Internal Medicine; Visit Provider Internal Medicine
DX: I10 Essential (primary) hypertension (principal); E11.9 Type 2 diabetes mellitus without complications; F32.2 Major depressive disorder, single episode, severe without psychotic features; J44.9 Chronic obstructive pulmonary disease, unspecified; M05.9 Rheumatoid arthritis with rheumatoid factor, unspecified; J68.3 Other acute and subacute respiratory conditions due to chemicals, gases, fumes and vapors; C50.912 Malignant neoplasm of unspecified site of left female breast; I25.2 Old myocardial infarction; M54.50 Low back pain, unspecified; E78.5 Hyperlipidemia, unspecified; R80.9 Proteinuria, unspecified; E55.9 Vitamin D deficiency, unspecified; M54.2 Cervicalgia; M54.6 Pain in thoracic spine
CPT/HCPCS: 36415; 72040; 72070; 72100; 80053; 80061; 82043; 82306; 82570; 83036; 96127; 99212

== ENCOUNTER 2024-12-15 10:49 | Outpatient (AMB) | payer OTHER, SELFPAY ==
[2024-07-16 09:49] VITALS: BP 96/60; BP 96/66; BMI 22.5
--- NOTE | 2024-12-15 11:02 | A.OFFPC_ITS ---
Vital Signs 12/15/24 11:03 Height 4 ft 10 in Weight 100 lb BMI 20.9 BP 110/72 Blood Pressure Location Lt brachial Position Sitting Intake Visit Reasons: Headaches/pain in spine Intake Note: Patient here for headaches, upper back pain Hand Riveter Required: No Accompanied by: Self / Same As Patient Allergies methylprednisolone Allergy (Severe, Verified 12/15/24 11:10) Rash from Solu-Medrol shellfish derived Allergy (Intermediate, Verified 12/15/24 11:10) Hives etanercept [From Enbrel] Adverse Reaction (Severe, Verified 12/15/24 11:10) Facial Swelling metformin Adverse Reaction (Severe, Verified 12/15/24 11:10) Diarrhea metronidazole [From FLAGYL] Adverse Reaction (Severe, Verified 12/15/24 11:10) Diarrhea prednisone Adverse Reaction (Intermediate, Verified 12/15/24 11:10) hallucinations, more than 20 mg doses Medication List - Last Reconciled 12/15/24 by Adela Wasserman MD albuterol sulfate 90 mcg/actuation 2 inhalations inhalation Q4H PRN aspirin 81 mg PO DAILY 90 days blood pressure monitor As directed blood pressure test kit-medium As directed blood sugar diagnostic (FreeStyle Lite Strips) Use 1 test strip three times a day tmegrskzeu-noulrcpjuacml-lfrz 50-325-40 mg 1 tab PO Q6H PRN [clamp on tub safety rail As directed] dulaglutide (Trulicity) 1.5 mg (0.5 mL) subcut TH@0900 [ez package collector bed assist support As directed] famotidine 20 mg PO BEDTIME 90 days rzrbrxalgrg-tvlvvtkkj-upgalzjy 200-62.5-25 mcg (Trelegy Ellipta) 1 ea inhalation DAILY folic acid 1 mg PO DAILY lancets (FreeStyle Lancets) Use 1 lancet once a day letrozole 2.5 mg PO DAILY methotrexate sodium 15 mg (6 x 2.5 mg) PO QWEEK metoclopramide HCl (Reglan) 5 mg PO TID PRN 30 days metoprolol succinate ER 25 mg PO DAILY nicotine 1 patch topical DAILY nicotine (polacrilex) mg PO ondansetron 4 mg PO Q8H PRN pantoprazole 40 mg PO DAILY 90 days pen needle, diabetic (Comfort EZ Pen [place]) Use 1 pen needle 6 times a day pregabalin 200 mg PO BID rosuvastatin 20 mg PO DAILY Shower Chair As directed simethicone 125 mg PO DAILY PRN ticagrelor (Brilinta) 90 mg PO BID tramadol 50 mg PO Q6H PRN trazodone 100 mg PO BEDTIME 90 days trazodone 50 mg PO BEDTIME PRN 90 days walker with seat Tobacco use date assessed: 12/15/24 Dental Screening Dental Screen Date: 12/15/24 Did you have a dental visit in the last 12 months?: Yes Did you have a dental problem in the last 6 months where you did not have access to dental care?: No Was dental information given to patient?: Patient has dentist HPI HPI Comments History of Present Illness Details The patient is a 64-year-old female presenting with chronic back pain and headache following her discharge from the hospital. She reports that these symptoms began after she was hospitalized for a STEMI in October of the rev year. Since then, she has experienced persistent pain in her spinal column, specifically affecting the spine, neck, and between the shoulder blades. The pain radiates from her lower back up to the neck and intensifies into a migraine when it reaches her neck, occurring daily. Touching and bending exacerbate the pain. The patient describes the pain as debilitating and reports difficulty bending due to the severity. She did not experience relief with medications she took previously, and spinal X-rays have been unremarkable. She denies any notable bleeding and suspects medication might contribute to her symptoms but is uncertain which one. She has diabetes mellitus type 2 with an A1c of 6.3% today which is well controlled. Has hypertension stable. Her COPD and reactive airway dysfunction syndrome is follow by pulmonology. Seropositive rheumatoid arthritis is follow by Rheumatology. Also has severe major depression that has somewhat improved. History of left breast cancer and completed letrozole treatment. 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 Acute respiratory distress Tendonitis of ankle or foot Cough Stable angina Anxiety CAD (coronary artery disease) HLD (hyperlipidemia) HTN (hypertension) COPD exacerbation Hyperkalemia Atherosclerotic cardiovascular disease Hospital discharge follow-up Colitis CVA (cerebral vascular accident) (~2018) Breast pain, right Rash Bloody diarrhea PAD (peripheral artery disease) Hyperlipidemia LDL goal <100 COPD (chronic obstructive pulmonary disease) Infiltrating ductal carcinoma of left breast, stage 2 Insomnia Dyslipidemia Bipolar 1 disorder, depressed Cough Restrictive airway disease Hypothyroid IDDM (insulin dependent diabetes mellitus) Vitamin D deficiency Osteoporosis Breast cancer Hyperparathyroidism Thyroid nodule T2DM (type 2 diabetes mellitus) Depression Fibromyalgia Seropositive rheumatoid arthritis Reactive airways dysfunction syndrome Allergic rhinitis Irritable bowel Anxiety Bronchial asthma Diabetes type 2, uncontrolled Surgical History S/P laparoscopic colectomy (04/15/24) Hx of sigmoidoscopy History of bronchoscopy Hx of endoscopy H/O cardiac catheterization History of lumpectomy of left breast History of pubovaginal sling History of esophagogastroduodenoscopy (EGD) History of tubal ligation History of colonoscopy History of bunionectomy of both great toes H/O: hysterectomy Family History Mother Diabetes HTN (hypertension) Uterus cancer Malignant tumor of head Breast cancer Father Diabetes HTN (hypertension) CVD (cardiovascular disease) Heart problem Maternal Aunt Breast cancer Brother Myocardial infarction S/P CABG x 4 Family/Other FH: mental illness Family/Other Lung cancer Other Mental health disorder Social History Household Members: Family Household Members Other:: sister Housing: House Are you a primary animal care service worker to a significant other at home: No Do you presently have visiting nurse or other home services: No Unable to assess alcohol history related to: Unknown Alcohol intake: never Comment: Low fall Patient Tobacco Use Status: Former Tobacco user Tobacco use type: Cigarette Cigarette Packs Per Day: 0.5 Cigarettes Per Day: 3 Years Smoked: 48 e-Cigarette/Vaping Use: Never Used Second Hand Smoke Exposure: No Substance Use Type: Marijuana Advance Directives Date on File: 12/22/21 service: No Current occupational status: disabled Current occupation: rt handed Cognitive needs: No Hearing needs: No Vision needs: Yes Questionnaire PHQ-9 Over the last 2 weeks, how often have you been bothered by any of the following problems? 1. Little interest or pleasure in doing things: several days 2. Feeling down, depressed, or hopeless: several days 3. Trouble falling or staying asleep, or sleeping too much: several days 4. Feeling tired or having little energy: several days 5. Poor appetite or overeating: several days 6. Feeling bad about yourself - or that you are a failure or have let yourself or your family down: not at all 7. Trouble concentrating on things, such as reading the newspaper or watching television: not at all 8. Moving or speaking so slowly that other people could have noticed. Or the opposite - being so fidgety or restless that you have been moving around a lot more than usual: not at all 9. Thoughts that you would be better off or of hurting yourself in some way: not at all Total score: 5 Source: Developed by Drs. Hernandez Norris, Gissell Solorzano, Gilmar Szymanski and colleagues, with an educational chris from [employer]. Thrive Questionnaire Date Thrive assessed: 12/15/24 I am a: Patient What is your living situation today?: I have a steady place to live Within the past 12 months, did the food you bought not last and you didn't have the money to get more?: Never true Within the past 12 months, did you worry whether your food would run out before you got money to buy more?: Never true Do you have trouble paying for medicines?: No Do you have trouble getting transportation to medical appointments?: No Do you have trouble paying your heating and electricity bill?: No Do you have trouble taking care of your child, family member or friend?: No Do you have trouble with day-to-day activities such as bathing, preparing meals, shopping, managing finances, etc.?: No Are you currently unemployed and looking for a job?: No Are you interested in more education?: No Please select the resources that you would like help with: None Currently or been in a relationship where the following occur: No concerns reported THRIVE Score: 0 AUDIT C Alcohol Use Questionnaire (AUDIT-C) 1. How often do you have a drink containing alcohol?: Never Total Score: 0 FLAVIA-7 AMB Questionnaire FLAVIA-7 Date FLAVIA - 7 assessed: 12/15/24 Feeling nervous, anxious, or on edge: 1 = Several days Not being able to stop or control worryin = Not at all Worrying too much about different things: 1 = Several days Trouble relaxin = Several days Being so restless that it is hard to sit still: 1 = Several days Becoming easily annoyed or irritable: 0 = Not at all Feeling afraid as if something awful might happen: 0 = Not at all Total FLAVIA-7 score (0-4 normal; 5-9 mild; 10-14 moderate; 15-21 severe): 4 Source: Developed by Drs. Hernandez Norris, Gissell Solorzano, Gilmar Szymanski and colleagues, with an educational chris from [employer]. Review of Systems Const All systems reviewed & are unremarkable except as noted in HPI and below Card Denies chest pain at rest, Denies chest pain with activity, Denies edema, Denies irregular heart rhythm, Denies claudication, Denies dyspnea, Denies dyspnea on exertion, Denies orthopnea, Denies paroxysmal nocturnal dyspnea and Denies slow heart rate Resp Denies cough, Denies dyspnea and Denies dyspnea on exertion GI Denies abdominal pain, Denies change in bowel habits, Denies excessive flatus, Denies nausea and Denies vomiting Physical exam (Primary Care) Vital Signs: Last Vital Signs BP 110/72 12/15/24 11:03 BMI result Body Mass Index 20.9 Tobacco/Smoking Status: Tobacco use Status Tobacco use date assessed 12/15/24 12/15/24 11:07 Patient Tobacco Use Status Former Tobacco user 12/15/24 11:07 Tobacco use type Cigarette 12/15/24 11:07 e-Cigarette/Vaping Use Never Used 12/15/24 11:07 PHQ-9: PHQ-9 Score PHQ-9: Total score 5 12/15/24 11:16 Thrive Assessment: Date of Thrive Assessment Date Thrive assessed 12/15/24 12/15/24 11:07 Currently or been in a relationship where the following occur: No concerns reported Resp Effort & Inspection: normal respiratory effort Auscultation: clear to auscultation bilaterally Cardio Jugular venous distension: no JVD Rate: regular rate Rhythm: regular rhythm Heart sounds: S1 normal heart sound present and S2 normal heart sound present Extrem General: Yes full ROM Results AMB Hemoglobin A1c AMB Hemoglobin A1c 6.3 % Last Edit by KENNY Coronel on 12/15/24 11:0 9 Results Reviewed Results Reviewed: Laboratory Last Values Hgb A1c (Clinic) 6.3 % (4.0-6.0) H 12/15/24 10:59 Coding Level of Care Code Est Pt Level 4 (92351) Complex EM visit Add On G2211 Diagnoses STEMI (ST elevation myocardial infarction) I21.3 Severe major depression without psychotic features F32.2 Essential hypertension I10 Type 2 diabetes mellitus without complication, without long-term current use of insulin E11.9 Diabetes mellitus type: type 2 Diabetes mellitus oil heaterman insulin use: without [place] [facility] use Diabetes mellitus complication status: without complication Chronic obstructive pulmonary disease, unspecified COPD type J44.9 COPD type: unspecified COPD Primary hypertension I10 Hypertension type: primary hypertension Seropositive rheumatoid arthritis M05.9 Reactive airways dysfunction syndrome J68.3 Infiltrating ductal carcinoma of left breast, stage 2 C50.912 Time Spent (min) 23 Assessment & Plan Assessment & Plan (1) STEMI (ST elevation myocardial infarction): Code(s): I21.3 - ST elevation (STEMI) myocardial infarction of unspecified site Category: Medical (2) Severe major depression without psychotic features: Code(s): F32.2 - Major depressive disorder, single episode, severe without psychotic features Category: Medical (3) Essential hypertension: Code(s): I10 - Essential (primary) hypertension Category: Medical (4) Diabetes mellitus: Code(s): E11.9 - Type 2 diabetes mellitus without complications Category: Medical Qualifiers: Diabetes mellitus type: type 2 Diabetes mellitus oil heaterman insulin use: without [place] [facility] use Diabetes mellitus complication status: without complication Qualified Code(s): E11.9 - Type 2 diabetes mellitus without complications (5) COPD (chronic obstructive pulmonary disease): Code(s): J44.9 - Chronic obstructive pulmonary disease, unspecified Category: Medical Qualifiers: COPD type: unspecified COPD Qualified Code(s): J44.9 - Chronic obstructive pulmonary disease, unspecified (6) HTN (hypertension): Code(s): I10 - Essential (primary) hypertension Category: Medical Qualifiers: Hypertension type: primary hypertension Qualified Code(s): I10 - Essential (primary) hypertension (7) Seropositive rheumatoid arthritis: Comment: +++RF+++CCP dx around 1999 [place]: 04/2021- 06/2022- stopped due to severe COPD requiring long standing azithromycin Plaquenil: approx. 02/2021-May 2021 self stopped Enbrel: approx. 02/2021 ordered after cleared for hep A, stopped due to allergy Sulfasalazine: approx. 02/2019- 02/2021 - restarted 09/27/2022 -04/2023 stopped due to heaedache and nausea Methorexate: approx. 11/2016-12/[address] [facility]. Diagnosed with breast CA so methotrexate discontinued. Changed to sulfsalazine 500mg 2 tabs BID to prevent lung fibrosis as patient was receiving radiation therapy for her breast CA. Completed Radiation therapy February 2019. OnTamoxifen but had side effects so was started on Letrozole in May 2019. MTX restarted 02/2024 Xeljanz: approx. 03/2018-04/2018 Cimzia: aprrox.05/2017- did not take Humira: dates unknown Leflunomide: many years ago, then approx. 08/2020-02/2021 Code(s): M05.9 - Rheumatoid arthritis with rheumatoid factor, unspecified Category: Medical (8) Reactive airways dysfunction syndrome: Comment: Her chronic cough, has been secondary to reactive airways syndrome. It was being perpetuated by continued smoking. Now that she has stop smoking her cough is very minimal. She is encouraged to stay clean of smoking. Use Albuterol HFA 2 puffs Q 4-6 hours p.r.n. if she has any sustained bouts of cough. Code(s): J68.3 - Other acute and subacute respiratory conditions due to chemicals, gases, fumes and vapors Category: Medical (9) Infiltrating ductal carcinoma of left breast, stage 2: Code(s): C50.912 - Malignant neoplasm of unspecified site of left female breast Category: Medical Plan Continue current meds for COPD, reactive airway dysfunction syndrome, hypertension, rheumatoid arthritis and diabetes mellitus type 2. Follow-up with psychiatry for depression. Follow-up with Hematology-Oncology for left breast cancer. Follow-up with cardiology for STEMI. Referred to pain management for her back pain and x-rays order to be done. I discussed with the patient the possibility of adjusting her current medications, reducing rosuvastatin given its potential impact on muscle pain. We also explored initiating physical therapy to address her musculoskeletal pain. The patient expressed interest in these options and agreed to proceed. We plan to follow up on her cholesterol levels to ensure they remain controlled, despite medication changes. Additional diagnostic imaging may be conducted at a different facility to further evaluate her spinal issues if symptoms persist. Orders: Orders XR lumbar spine 2-3V Today M54.50 - Low back pain, unspecified Lipid Panel Today E78.5 - Hyperlipidemia, unspecified Microalbumin, Random (w Creat) Today R80.9 - Proteinuria, unspecified Vitamin D 25-OH Total Today E55.9 - Vitamin D deficiency, unspecified Comprehensive [place]. Panel Fast Today E11.9 - Type 2 diabetes mellitus without complications AMB Hemoglobin A1c Today E11.9 - Type 2 diabetes mellitus without complications XR cervical spine 2V Today M54.2 - Cervicalgia XR thoracic spine 2V Today M54.6 - Pain in thoracic spine Referrals [facility] Referral N89.8 - Other specified noninflammatory disorders of vagina Pain Management Referral M51.36 - Other intervertebral disc degeneration, lumbar region, M54.2 - Cervicalgia, M54.6 - Pain in thoracic spine Medications: Discontinued letrozole Discontinued Reason: Patient Completed Course 2.5 mg PO DAILY 90 tabs 3RF rosuvastatin Discontinued Reason: Patient Completed Course 20 mg PO DAILY 30 tabs 4RF E78.5 - Hyperlipidemia, unspecified Patient Instructions: - Continue prescribed medications, monitoring for any adverse effects. - Attend pain management sessions as discussed. - Follow up with me for cholesterol check in February. - Report any worsening symptoms or new side effects immediately. - Maintain lifestyle modifications to support cardiovascular health.
[2024-12-15 11:03] VITALS: BP 110/72; BMI 20.9
--- OUTSIDE RECORDS SUMMARY | 2024-12-15 11:58 | XMS_ITS | Data Portability ---
Author Organization [facility] [employer] Address [address] [place] [address] Care Team Providers Care Design Engineer Agricultural Equipment Name Role Phone HIM CCA Primary Care Provider Assessment Encounter Date Assessment Date Assessment LastModified by Organization Details LastModified Time 03/27/2024 03/27/2024 I provided real -time medical direction via phone for this encounter, and was available for additional phone based assistance as needed. I have reviewed and agree with the Assessment and Plan as documented by the Coupon Collection Clerk. We discussed the diagnostic uncertainty of home visits and the risk associated with this. The patient given the opportunity to ask questions. Patient requesting pain management- medic informed patient we do not carry narcotic pain meds- could offer ivf/antiemetic s and ketorolac if patient is not in gregg-The patient declined medic getting any lab work or starting an IV she just wanted to go to the ER for evaluation and management. Report called to [facility] ER [email or web address] Not available 03/27/2024 13:41:34 Plan of Treatment Reminders Order Date Submit Date Provider Last Modified By Organization Details Last Modified Time Details Appointments None record ed. Lab None record ed. Referral None record ed. Procedures None record ed. Surgeries None record ed. Imaging None record ed. Medication Orders None record ed. Patient TargetsNo targets recorded. Patient InstructionsNo instructions recorded. Reason for Referral None Reported. Medical Equipment None Reported. Allergies Allergen ID Allergen Name Allergen Category Reaction Reaction Severity Criticality Documentation Date Start Date Code Code System Note Provider Name and Address Organization Details Recorded Time 5058 Flagyl medicatio n Not available Not available Not available 03/27/2024 6 RxNorm Radha Fernández MD [address] [facility],[address], [place], [address] [facility] 13:34:28 Medications Name Sig Start Date Stop Date Status Note LastModified by Organization Details LastModified Time cyclobenzapr ine 10 mg tablet TAKE 1 TABLET BY MOUTH 3 TIMES A DAY NEEDED FOR MUSCLSE SPASM active Not Available Not Available No t Available prednisone 10 mg tablet PLEASE SEE ATTACHED FOR DETAILED DIRECTIONS active Not Available Not Available N ot Available ipratropium 0.5 mg-albuterol 3 mg (2.5 mg base)/3 mL nebulization soln 3 ML INHALED VIA NEBULIZEREV JOE 6 HOURS active Not Available Not Available Not Available sulfasalazin e 500 mg tablet TAKE 1 TABLET BY MOUTH TWICE A DAY active Not Available Not Available No t Available azithromycin 250 mg tablet TAKE 1 TABLET BY MOUTH 3 TIMES A WEEK FOR COPD/BRONCH ITIS FOR 10 DAYS, SATURDAY, SATURDAY, AND SATURDAY active Not Available Not Available N ot Available meloxicam 15 mg tablet TAKE 1 TABLET BY MOUTH EVERY DAY active Not Available Not Available No t Available FreeStyle Lancets 28 gauge USE 1 LANCET ONCE A DAY active Not Available Not Available No t Available prednisone 20 mg tablet TAKE 1 TABLET BY MOUTH EVERY DAY FOR 3 DAYS active Not Available Not Available No t Available prednisone 5 mg tablet TAKE 1 TABLET BY MOUTH DAILY FOR FOR ASTHMA FOR 30 DAYS active Not Available Not Available No t Available metronidazol e 500 mg tablet TAKE 1 TABLET BY MOUTH EVERY 8 HOURS active Not Available Not Available No t Available aspirin 81 mg tablet,delay ed release TAKE 1 TABLET BY MOUTH EVERY DAY active Not Available Not Available No t Available tramadol 50 mg tablet TAKE 1 TABLET BY MOUTH EVERY 6 HOURS NEEDED FOR PAIN active Not Available Not Available No t Available ondansetron 8 mg disintegrati ng tablet DISSOLVE 1 TABLET EVERY 8 HOURS NEEDED FOR NAUSEA AND VOMITING FOR 30 DAYS active Not Available Not Available Not Available lamotrigine 25 mg tablet TAKE 1 TABLET BY MOUTH 2 TIMES A DAY active Not Available Not Available Not Available famotidine 20 mg tablet TAKE 1 TABLET BY MOUTH EVERYDAY AT BEDTIME active Not Available Not Available No t Available methotrexate sodium 2.5 mg tablet TAKE 6 TABLETS BY MOUTH ONCE EVERY WEEK active Not Available Not Available N ot Available tamsulosin 0.4 mg capsule TAKE 1 CAPSULE BY MOUTH EVERY DAY active Not Available Not Available No t Available trazodone 100 mg tablet TAKE 1 TABLET (100 MG) ORALLY BEDTIME FOR 90 DAYS active Not Available Not Available No t Available doxycycline monohydrate 100 mg capsule TAKE 1 CAPSULE BY MOUTH TWICE A DAY active Not Available Not Available No t Available prednisone 2.5 mg tablet TAKE 4 TABS ONCE DAILY FOR 7 DAYS, THEN 3 TABS X 7 DAYS , THEN 2 TABS X 14 DAYS. active Not Available Not Available N ot Available pantoprazole 40 mg tablet,delay ed release TAKE 1 TABLET BY MOUTH TWICE A DAY active Not Available Not Available No t Available losartan 25 mg tablet TAKE 1 TABLET BY MOUTH DAILY active Not Available Not Available Not Available docusate sodium 100 mg capsule TAKE 1 CAPSULE BY MOUTH TWICE A DAY FOR CONSTIPATIO N active Not Available Not Available No t Available folic acid 1 mg tablet TAKE 1 TABLET BY MOUTH EVERY DAY active Not Available Not Available No t Available codeine 10 mg-guaifenes in 100 mg/5 mL oral liquid TAKE 10 ML ORALLY EVERY 4 TO 6 HOURS NEEDED FOR UNREMITTING COUGH FOR 30 DAYS *NOT COVERED* active Not Available Not Available No t Available levofloxacin 750 mg tablet TAKE 1 TABLET BY MOUTH EVERY 48 HOURS active Not Available Not Available No t Available letrozole 2.5 mg tablet TAKE 1 TABLET BY MOUTH DAILY active Not Available Not Available Not Available albuterol sulfate HFA 90 mcg/actuatio n aerosol inhaler INHALE 1 INHALATION 4 TIMES A DAY NEEDED FOR SHORTNESS OF BREATH OR WHEEZING active Not Available Not Available Not Available morphine 15 mg immediate release tablet TAKE 1 TABLET BY MOUTH EVERY 8 HOURS NEEDED FOR PAIN active Not Available Not Available No t Available ondansetron 4 mg disintegrati ng tablet TAKE 1 TABLET BY MOUTH EVERY 8 HOURS FOR NAUSEA active Not Available Not Available No t Available ipratropium bromide 0.02 % solution for inhalation 2.5 ML INHALED EVERY 6 HOURS NEEDED FOR SHORTNESS OF BREATH OR WHEEZING active Not Available Not Available Not Available amoxicillin 875 mg-potassium clavulanate 125 mg tablet 1 TAB ORALLY EVERY 12 HOURS FOR 4 DAYS active Not Available Not Available No t Available oxycodone 5 mg tablet TAKE 1 TABLET BY MOUTH EVERY 8 HOURS NEEDED FOR PAIN active Not Available Not Available No t Available Laxative (bisacodyl) 5 mg tablet,delay ed release TAKE 2 TABLETS ONCE AT 12 PM DAILY FOR 2 DAYS, STARTING 2 DAYS BEFORE COLONOSCOPY APPOINTMENT active Not Available Not Available Not Available Novolog FlexPen U-100 Insulin aspart 100 unit/mL (3 mL) subcutaneous INJECT 2 TO 10 UNIT SUBCUTANEOU SLY 3 TIMES A DAY BEFORE MEALS FOR 30 DAYS. VIA SLIDING SCALE active Not Available Not Available No t Available duloxetine 30 mg capsule,roya yed release TAKE 1 CAPSULE ORALLY DAILY DAILY FOR 7 DAYS, THEN INCREASE TO 60MG DAILY active Not Available Not Available N ot Available duloxetine 60 mg capsule,roya yed release TAKE 1 CAPSULE ORALLY DAILY AFTER COMPLETING 7 DAYS COURSE OF 30MG DAILY active Not Available Not Available N ot Available levalbuterol HFA 45 mcg/actuatio n aerosol inhaler INHALE 2 PUFFS EVERY 4 TO 6 HOURS NEEDED FOR SHORTNESS OF BREATH FOR 30 DAYS active Not Available Not Available Not Available pregabalin 200 mg capsule TAKE 1 CAPSULE BY MOUTH TWICE A DAY active Not Available Not Available No t Available BD Ultra-Fine Short Pen Needle 31 gauge x 5/16 USE 1 PEN NEEDLE 6 TIMES A DAY active Not Available Not Available Not Available mesalamine 1.2 gram tablet,delay ed release TAKE 2 TABLETS BY MOUTH EVERY DAY active Not Available Not Available No t Available FreeStyle Lite Strips FOR DIABETES MELLITUS USE 1 TEST STRIP THREE TIMES A DAY active Not Available Not Available Not Available carisoprodol 250 mg tablet TAKE 1 TABLET BY MOUTH 3 TIMES A DAY NEEDED FOR MUSCLE PAIN active Not Available Not Available No t Available lubiprostone 8 mcg capsule TAKE 1 CAPSULE BY MOUTH TWICE A DAY active Not Available Not Available No t Available Gavilax 17 gram/dose oral powder PLEASE SEE ATTACHED FOR DETAILED DIRECTIONS active Not Available Not Available N ot Available Senexon-S 8.6 mg-50 mg tablet TAKE 2 TABS ORALLY BEDTIME FOR 60 DAYS PLEASE TAKE EVERY OTHER DAY AT BEDTIME active Not Available Not Available No t Available Brilinta 90 mg tablet TAKE 1 TABLET ORALLY 2 TIMES A DAY FOR 90 DAYS active Not Available Not Available Not Available Linzess 145 mcg capsule TAKE 1 CAPSULE BY MOUTH EVERY DAY IN THE MORNING active Not Available Not Available No t Available Trulicity 1.5 mg/0.5 mL subcutaneous pen injector INJECT 1.5 MG SUBCUTANEOU SLY EVERY SATURDAY AT 9:00 AM active Not Available Not Available No t Available Tresiba FlexTouch U-100 insulin 100 unit/mL (3 mL) subcutaneous pen INJECT 20 UNITS (0.2 ML) SUBCUTANEOU SLY BEDTIME active Not Available Not Available Not Available Trelegy Ellipta 200 mcg-62.5 mcg-25 mcg powder for inhalation INHALE 1 PUFF EVERY DAY active Not Available Not Available No t Available Vitals Date Recorded Heart rate Respiratory rate Body height Body weight Oxygen saturation Oxygen saturation in Arterial blood by Pulse oximetry Body temperature Systolic blood pressure Diastolic blood pressure Provider Name and Address Organization Details Last Updated DateTime 4 114 /min 20 /min 121.92 cm 16504 g 94 % 94 % 98.8 [degF] 129 mm[Hg] 83 mm[Hg] Not Available [facility] - production 4 13:24:05 Social History None recorded. Functional Status None recorded. Mental Status None recorded. Family History Nothing Reported. Medical History No medical history recorded. Gynecological HistoryNo gynecological history recorded. Obstetrics History GPAL:G 0 P 0 0 0 0 Past Encounters Encounter ID Performer Location Encounter Start Date Encounter Closed Date Diagnosis/Indication Diagnosis SNOMED-CT Code Diagnosis ICD10 Code Diagnosis Note [id number] Radha Fernández MD Main - [address] [address] 03/27/2024 13:23:51 03/29/2024 11:48:16 Diverticulitis 364647379 K57.92 Health Concerns Section Related Observation LastModified by Organization Detai ls LastModified Time None Recorded Concern Status LastModified by Organization Details LastModified Time None Recorded Advance Directives Directive None Recorded Payers Encounter Date Sequence Insurance Name Policy Number Policy Charles Covered Member ID Charles Member ID Guarantor Name 03/27/2024 1 [facility] - DOS ON OR AFTER 2023 - DUAL ELIGIBLE - SENIOR LIVING OPTIONS AND ONE CARE (MEDICARE REPLACEMENT/ADV ANTAGE - HMO) Sosa Joiner [id number] Sosa Joiner Notes Date Note Type Note Provider Name and Address Organization Details Recorded Time 03/27/2024 text/html HPI: Member has diverticulitis. She was at the ED last month and again on 03/25. She has scheduled surgery on 04/15/24 for this. She states she was given ABX at ED but not sent home with pain medication and is having a great deal of pain. .................... .................... .................... .................... .................... .................... .................... . [facility] Nurse Triage Notes (Lyndon Jorgensen): Comments: Reviewed - HPISEGMD: Patient with diverticulitis, Crohn's disease, rheumatoid arthritis DM, asthma, hypertension, CAD and CKD 2 per nephrology note of 11/21/23. This flare-up of her diverticulosis/diver ticulitis started on March 23-abdominal pain is worsened by eating or drinking. She vomited 3 times Saturday none since-no hematemesis. She has not had a bowel movement for 10 days. She was seen in the ER 03/25 at [facility] -CT attached. She has been complaining of a frontal headache -CT head and neck were negative for acute disease in the ER -she is complaining of severe abdominal pain Coupon Collection Clerk POC Test Results from Amy Montana - [facility] Blood Glucose Measurement (1) [14:39] Blood Glucose: 149 mg/dL .................... .................... .................... .................... .................... .................... .................... . Coupon Collection Clerk Note From Amy Montana: Sent to a call for a pt with history of diverticulitis and complaining of abd pain. SC8 arrives on scene, pt is alert and oriented, airway is patent, and in obvious distress. Pt has history of Diverticulitis, Crohn's, Rheumatoid Arthritis, DM, Htn, and CKD. Pt states she is allergic to Flagyl. Pt states pt was diagnosed with diverticulitis approx 2 yrs ago, has had increasing frequency of flares, and is scheduled for surgery on 04/15. Pt states most recent flare started 03/23. Pt complains of chronic frontal headache, and constipation x 10 days with last BM having white matter throughout. Pt complains of nausea, (vomiting x3 on Mon), and diffuse abd pain since 03/23. Pt was evaluated/treated/davidson d CT scans performed (results uploaded to [facility]) at [place] ED on 03/25 and prescribed Levofloxacin 500mg qd x 7 days. Pt complains of dizziness when standing/walking starting yesterday. Pt denies cp, sob, diarrhea, black/bloody stool, fever, or loc. Pt states she has eaten/drank very little because eating/drinking worsens abd pain. (sitting) BP:129/83, P:114, RR:20, SpO2:94% RA, T:98.8; (standing) BP:129/85, P:125; Head: unremarkable; Lung sounds: clear bilaterally; Abdomen: soft, diffuse tenderness, (+)bowel sounds throughout; Back: unremarkable; Extremities: unremarkable; Skin: pink, warm, dry; Pt advised IV access/venous blood draw would allow pt to receive IVF, anti-nausea meds, and Ketorolac if pt qualifies. Pt states she usually receives narcotics for pain during flares. Pt advised [facility]. Pt declines IV access/venous blood draw, stating she would prefer to go to ED. [facility] consulted and orders BG as pt does not check BG regularly. Pt states she usually uses CGM, but ran out, and hasn't used glucometer for over 1 week. B; [facility] calls report to [facility] ED. 911 contacted and pt care transferred to [facility] crew. Pt transported to [facility] ED via [facility]. .................... .................... .................... .................... .................... .................... .................... . Disposition: Fulfilled Radha Fernández MD [address] [facility],[address], [place], [address], [facility] - [employer] [facility] 03/27/2024 14:55:37 OBGyn Episode No OBEpisode recorded.
--- OUTSIDE RECORDS SUMMARY | 2024-12-15 11:58 | XMS_ITS | Clinical Summary ---
Author Organization [facility] [employer] [facility] Address [address] [place] [address] Phone Care Team Providers Care Shutdown Planner Name Role Phone Adela Wasserman MD Primary Care Provider [phone] Social History Tobacco Use Types Packs/Day Years Used Date Smoking Tobacco: Never Assessed Sex and Gender Information Value Date Recorded Sex Assigned at Not on file Gender Identity Not on file Sexual Orientation Not on file Plan of Treatment Health Maintenance Due Date Last Done Comments Breast Cancer Screening 1962 DTaP,Tdap,and Td Vaccines (1 - Tdap) 1981 Cervical Cancer Screening: P ap Smear 1983 Zoster Vaccines (1 of 2) 2012 Cholesterol Screening (Lipid Panel) 10/21/2022 Colorectal Cancer Screening: Colonoscopy 10/21/2022 Depression Screening 10/21/2022 HIV Screening 10/21/2022 Hepatitis C Screening 10/21/2022 Medicare Annual Wellness Visit 10/21/2022 Social Influencers of Health Screening 10/21/2022 COVID-19 Vaccine ( - 2023-2 5 season) 2024 Influenza Vaccine (#1) 2024 Hypertension/CHF/CAD Annual BMP Blood Test 12/13/2024 RSV Immunization Patients 60 + Years Old (1 - 1-dose 75+ series) 2037 HIB Vaccines Aged Out No longer eligi ble based on patient's age to complete this topic HPV Vaccines Aged Out No longer eligi ble based on patient's age to complete this topic Hepatitis A Vaccines Aged Out No long er eligible based on patient's age to complete this topic Hepatitis B Vaccines Aged Out No long er eligible based on patient's age to complete this topic IPV Vaccines Aged Out No longer eligi ble based on patient's age to complete this topic MMR Vaccines Aged Out No longer eligi ble based on patient's age to complete this topic Meningococcal ACWY Vaccine Aged Out N o longer eligible based on patient's age to complete this topic Pneumococcal Vaccine: Pediat rics (0 to 5 Years) and At-Risk Patients (6 to 64 Years) Aged Out No longer eligible b ased on patient's age to complete this topic RSV Immunization Patients Un steffen 20 months Aged Out No longer eligible b ased on patient's age to complete this topic Varicella Vaccines Aged Out No longer eligible based on patient's age to complete this topic Care Teams Shutdown Planner Relationship Specialty Start Date End Date Adela Wasserman MD [address] [place] [address] , [address] [facility] D[facility]B/A: [facility] [place], [place] PCP - General Internal Medicine 12/08/24
--- OUTSIDE RECORDS SUMMARY | 2024-12-15 11:58 | XMS_ITS | Clinical Summary ---
Author Organization [facility] Address [address] [place] [address] Phone Care Team Providers Care Geomatics Professor Name Role Phone Adela Gipson MD Primary Care Provider [phone] Allergies Active Allergy Reactions Criticality Noted Date Comments Ibuprofen 07/17/2022 Metronidazole 07/17/2022 Shellfish Allergy 07/17/2022 Medications traZODone (DESYREL) 100 MG tablet Take 100 mg by mouth at bed time 2 Active Brilinta 90 MG tablet Take 90 mg by mouth 2 Active pregabalin (LYRICA) 150 MG capsule Take 150 mg by mouth 1 (one) time each day in the morning 2 Active predniSONE 5 MG tablet TAKE 1 TAB (5 MG) 2 TIMES A DAY FOR COUGH/ASTHMA FOR 2 WKS THEN TAKE 1 TAB (5 MG ONCE A DAY) 2 Active pantoprazole (PROTONIX) 40 MG EC tablet TAKE 1 TAB 40 MG ORALLY 2 TIMES A DAY 2 Active nitroglycerin (NITROSTAT) 0.[address] 0.4 mg under the tongue 2 Active metoprolol tartrate 25 MG tablet Take 12.5 mg by mouth 2 Active losartan (COZAAR) 25 MG tablet Take 25 mg by mouth 1 (one) time each day 2 Active NovoLOG FLEXPEN 100 UNIT/ML injection INJECT 4-8 UNITS SUBCUTANEOUSLY 3 TIMES A DAY WITH MEALS 2 Active insulin degludec (Tresiba FlexTouch) 100 UNIT/ML injection INJECT 46 UNITS DAILY 2 Active Trulicity 1.5 MG/0.5ML solution pen-injector INJECT 0.5ML SUBCUTANEOUSLY EVERY WEEK FOR 28 DAYS 2 Active atorvastatin (LIPITOR) 80 MG tablet Take 80 mg by mouth 1 (one) time each day 2 Active dicyclomine (BENTYL) 10 MG capsule TAKE 1 CAPSULE BY MOUTH 3 TIMES A DAY NEEDED FOR ABDOMINAL PAIN 2 Active Aspirin Low Dose 81 MG EC tablet Take 81 mg by mouth 1 (one) time each day 2 Active mesalamine (LIALDA) 1.2 g EC tablet 3 Active Active Problems Problem Noted Date Diagnosed Date Stage 3a chronic kidney disease 11/21/2023 Chronic kidney disease, stage 2 (mild) 2 Transient cerebral ischemia 07/17/2022 Myocardial infarction 07/17/2022 Migraine 07/17/2022 Hypertensive urgency 07/17/2022 CT of head abnormal 07/17/2022 Stage 3b chronic kidney disease 07/17/2022 Type 2 diabetes mellitus wit h diabetic chronic kidney disease 07/17/2022 Renal osteodystrophy 07/17/2022 Social History Tobacco Use Types Packs/Day Years Used Date Smoking Tobacco: Never Smokeless Tobacco: Never Tobacco Cessation:Counseling Given: Not Answered Alcohol Use Standard Drinks/Week Comments Not Currently 0 (1 standard drink = 0.6 oz pur e alcohol) Comments Unknown Sex and Gender Information Value Date Recorded Sex Assigned at Not on file Legal Sex Female 9:18 AM EDT Gender Identity Not on file Sexual Orientation Not on file Last Filed Vital Signs Vital Sign Reading Time Taken Comments Blood Pressure 125/65 11/21/2023 1:50 PM EST Pulse 66 11/21/2023 1:50 PM EST Temperature - - Respiratory Rate - - Oxygen Saturation 98% 11/21/2023 1:50 PM EST Inhaled Oxygen Concentration - - Weight 47.5 kg (104 lb 12.8 oz) 11/21/2023 1:50 PM EST Height - - Body Mass Index - - Plan of Treatment Upcoming Encounters Date Type Department Care Team (Late st Contact Info) Description 03/22/2025 3:45 PM EDT Office Visit [facility] [address] [place] [address] Alexi Warren MD [address] [address] Health Maintenance Due Date Last Done Comments Breast Cancer Screening 1962 Pneumococcal Vaccine: Pediat rics (0 to 5 Years) and At-Risk Patients (6 to 64 Years) (1 of 2 - PCV) 1968 Colorectal Cancer Screening: Annual FOBT 2011 Colorectal Cancer Screening: Colonoscopy 2011 Colorectal Cancer Screening: Sigmoidoscopy 2011 Diabetes: Ophthalmology Exam 07/17/2022 Diabetes: Pedal Pulse Checked 07/17/2022 Diabetes: Sensory Foot Exam 07/17/2022 Diabetes: Visual Foot Exam 07/17/2022 Diabetes: Hemoglobin A1C 08/24/2022 05/24/2022 Influenza Vaccine (#1) 2024 Hepatitis B Vaccine Aged Out No longe r eligible based on patient's age to complete this topic Procedures Procedure Name Priority Date/Time Associated Diagnosis Comments EXT RESULT ENTRY Routine 05/24/2022 from Last 3 Months or Most Recently Relevant to Health Maintenance Results * (ABNORMAL) EXT RESULT ENTRY (05/24/2022) Hemoglobin A1C 7.2(A) 4.0 - 6.0 05/24/2022 Historical Provider LAB BLOOD ORDERABLES Gracie l Result from Last 3 Months or Most Recently Relevant to Health Maintenance Insurance [employer] [place] [id number] Care Teams Geomatics Professor Relationship Specialty Start Date End Date Adela Gipson MD [address] [place], [place] PCP - General Internal Medicine 05/28/22
== END 2024-12-15 11:22 | disposition home or self-care (01) ==
PROVIDERS: PCP Internal Medicine; Visit Provider Internal Medicine
DX: E11.9 Type 2 diabetes mellitus without complications (principal); J44.9 Chronic obstructive pulmonary disease, unspecified; F32.2 Major depressive disorder, single episode, severe without psychotic features; M05.9 Rheumatoid arthritis with rheumatoid factor, unspecified; J68.3 Other acute and subacute respiratory conditions due to chemicals, gases, fumes and vapors; C50.912 Malignant neoplasm of unspecified site of left female breast; I25.2 Old myocardial infarction; I10 Essential (primary) hypertension

== ENCOUNTER → 2024-12-15 11:51 | Outpatient (BNV) | payer OTHER, SELFPAY ==
[2024-07-16 09:49] VITALS: BP 96/60; BP 96/66; BMI 22.5
== END ==
PROVIDERS: PCP Internal Medicine; Visit Provider Radiology Diagnostic Radiology
DX: M25.78 Osteophyte, vertebrae (principal)
CPT/HCPCS: 72040; 72070; 72100

== ENCOUNTER 2024-12-18 15:16 | Emergency (ER) | payer OTHER, SELFPAY ==
[2024-07-16 09:49] VITALS: BP 96/60; BP 96/66; BMI 22.5
--- NOTE | ~2024-12-18 | XR_ITS ---
EXAMINATION: XR CHEST 2 VIEWS HISTORY: chest pain COMPARISON: Comparison is made with the prior examination dated 11/23/2024. FINDINGS: PA and lateral views of the chest are submitted. The lungs remain hyperinflated, consistent with COPD. The lungs are clear. There is no pleural effusion, pneumothorax, or pulmonary vascular congestion. The heart is normal in size. The bones are intact. XR/XR chest 2V IMPRESSION: COPD. No acute cardiopulmonary abnormality. Electronically signed by: Hernandez Darling MD 12/18/2024 03:55 PM SHRUTHI
--- NOTE | 2024-12-18 15:18 | ECG_ITS ---
Test Reason : chest pain Blood Pressure : */* mmHG Vent. Rate : 114 BPM Atrial Rate : 114 BPM P-R Int : 142 ms QRS Dur : 86 ms QT Int : 334 ms P-R-T Axes : 80 82 42 degrees QTcB Int : 460 ms Sinus tachycardia Possible Left atrial enlargement Nonspecific ST and T wave abnormality Borderline ECG When compared with ECG of 23-Nov-2024 15:16, Vent. rate has increased by 42 bpm Referred By: Generic ED Physician Electronically Signed By: MICHELL MONTES
[2024-12-18 15:35] VITALS: BP 126/75; PULSE 102; RESP 18; TEMP 36.8; O2SAT 100; BMI 19.9
--- NOTE | 2024-12-18 15:35 | ED.CHESTPAIN ---
HPI - Chest Pain General Chief Complaint: Chest Pain Stated Complaint: bad chest pain Time Seen by Provider: 12/18/24 17:49 History of Present Illness ED Provider: Karel COPPOLA narrative: The patient is a 64-year-old woman with a history of coronary disease. She has stents. Her last significant acute coronary event occurred in early October 2024, almost 2 months ago. At that time she had chest pain and went to the emergency room at [facility] where she was hospitalized and found to have an NSTEMI. She went for a cardiac catheterization and was found to have an InStent restenosis and had PCI of the stent and the OM 2. She has been on aspirin and Brilinta since then. She followed up with Dr. Jason hathaway on November 04. The patient says that today at around p.m. she developed chest pain that she says feels similar to the pains she has had with her heart attacks in the past. She says the pain is worse with each breath. She says this is the same kind of syndrome she has had with previous coronary syndromes. The patient says that she has been at cardiac rehab earlier in the day and has been tachycardic but did not develop the chest pain until after she had gotten home from cardiac rehab. No fever, sweats, chills. No cough or sputum. No pain or swelling in her legs. She says she has been taking her aspirin and her Brilinta. She is also complaining of a headache that is similar to previous headache she has had in the past. Related Data Home Medications ?Medication ?Instructions ?Recorded ?Confirmed albuterol sulfate 90 mcg/actuation 2 inh inhalation Q4H PRN Shortness 08/23/23 12/15/24 aerosol inhaler Of Breath Or Wheezing fluticasone fur. 200 mcg-umeclid 1 ea inhalation DAILY 02/06/24 12/15/24 62.5 mcg-vilant 25 mcg inhalat.powder (Trelegy Ellipta) metoprolol succinate 25 mg 25 mg PO DAILY 11/04/24 12/15/24 tablet,extended release 24 hr nicotine (polacrilex) 2 mg gum mg PO 11/04/24 12/15/24 nicotine 14 mg/24 hr daily 1 patch topical DAILY 11/04/24 12/15/24 transdermal patch Previous Rx's ?Medication ?Instructions ?Recorded walker #1 ea 02/08/23 pen needle, diabetic 31 gauge x #200 ea 11/27/23/16 (Comfort EZ Pen Britton) dulaglutide 1.5 mg/0.5 mL 1.5 mg (0.5 mL) subcut TH@0900 #6 12/30/23 subcutaneous pen injector mL (Trulicity) Shower Chair #1 ea 01/15/24 clamp on tub safety rail #1 ea 01/15/24 ez counter former bed assist support #1 ea 01/15/24 famotidine 20 mg tablet 20 mg PO BEDTIME 90 days #90 tabs 01/31/24 ondansetron 4 mg disintegrating 4 mg PO Q8H PRN nausea and 02/19/24 tablet vomiting #20 tabs simethicone 125 mg capsule 125 mg PO DAILY PRN gas pain #30 04/28/24 caps methotrexate sodium 2.5 mg tablet 15 mg (6 x 2.5 mg) PO QWEEK #72 06/09/24 tabs pantoprazole 40 mg tablet,delayed 40 mg PO DAILY 90 days #90 tabs 08/04/24 release tramadol 50 mg tablet 50 mg PO Q6H PRN pain #20 tabs 10/06/24 bbztxnxcfr-dbslsthtvebfr-tjbppglx 1 tab PO Q6H PRN haeadace #20 tabs 10/18/24 50 mg-325 mg-40 mg tablet aspirin 81 mg tablet,delayed 81 mg PO DAILY 90 days #90 tabs 10/19/24 release folic acid 1 mg tablet 1 mg PO DAILY #90 tabs 10/28/24 blood pressure monitor #1 ea 11/04/24 blood pressure test kit-medium #1 ea 11/04/24 trazodone 50 mg tablet 50 mg PO BEDTIME PRN sleep 90 days 11/04/24 #90 tabs metoclopramide HCl 5 mg tablet 5 mg PO TID PRN nausea and 11/19/24 (Reglan) vomiting 30 days #90 tabs lancets 28 gauge (FreeStyle #100 ea 12/09/24 Lancets) ticagrelor 90 mg tablet (Brilinta) 90 mg PO BID #90 tabs 12/11/24 blood sugar diagnostic (FreeStyle #100 ea 12/13/24 Lite Strips) pregabalin 200 mg capsule 200 mg PO BID #60 caps 12/16/24 trazodone 100 mg tablet 100 mg PO BEDTIME 90 days #90 tabs 12/17/24 Allergies Allergy/AdvReac Type Severity Reaction Status Date / Time methylprednisolone Allergy Severe Rash from Verified 12/18/24 15:36 Solu-Medrol shellfish derived Allergy Intermediate Hives Verified 12/18/24 15:36 etanercept [From Enbrel] AdvReac Severe Facial Verified 12/18/24 15:36 Swelling metformin AdvReac Severe Diarrhea Verified 12/18/24 15:36 metronidazole [From FLAGYL] AdvReac Severe Diarrhea Verified 12/18/24 15:36 prednisone AdvReac Intermediate hallucinations, Verified 12/18/24 15:36 more than 20 mg doses Review of Systems Review of Systems: Yes all other systems are reviewed and are negative [facility] Past Medical History Medical History NSTEMI (non-ST elevated myocardial infarction) GERD (gastroesophageal reflux disease) Diverticulitis large intestine FDC (current) use 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 Acute respiratory distress Tendonitis of ankle or foot Cough Stable angina Anxiety CAD (coronary artery disease) HLD (hyperlipidemia) HTN (hypertension) COPD exacerbation Hyperkalemia Atherosclerotic cardiovascular disease Hospital discharge follow-up Colitis CVA (cerebral vascular accident) (~2018) Breast pain, right Rash Bloody diarrhea PAD (peripheral artery disease) Hyperlipidemia LDL goal <100 COPD (chronic obstructive pulmonary disease) Infiltrating ductal carcinoma of left breast, stage 2 Insomnia Dyslipidemia Bipolar 1 disorder, depressed Cough Restrictive airway disease Hypothyroid IDDM (insulin dependent diabetes mellitus) Vitamin D deficiency Osteoporosis Breast cancer Hyperparathyroidism Thyroid nodule T2DM (type 2 diabetes mellitus) Depression Fibromyalgia Seropositive rheumatoid arthritis Reactive airways dysfunction syndrome Allergic rhinitis Irritable bowel Anxiety Bronchial asthma Diabetes type 2, uncontrolled Surgical History S/P laparoscopic colectomy (04/15/24) Hx of sigmoidoscopy History of bronchoscopy Hx of endoscopy H/O cardiac catheterization History of lumpectomy of left breast History of pubovaginal sling History of esophagogastroduodenoscopy (EGD) History of tubal ligation History of colonoscopy History of bunionectomy of both great toes H/O: hysterectomy Family History Family History Mother Diabetes HTN (hypertension) Uterus cancer Malignant tumor of head Breast cancer Father Diabetes HTN (hypertension) CVD (cardiovascular disease) Heart problem Maternal Aunt Breast cancer Brother Myocardial infarction S/P CABG x 4 Family/Other FH: mental illness Family/Other Lung cancer Other Mental health disorder Social History Social History Household Members: Family Household Members Other:: sister Housing: House Are you a primary foster care social worker to a significant other at home: No Do you presently have visiting nurse or other home services: No Unable to assess alcohol history related to: Unknown Alcohol intake: never Comment: Low fall Patient Tobacco Use Status: Former Tobacco user Tobacco use type: Cigarette Cigarette Packs Per Day: 0.5 Cigarettes Per Day: 3 Years Smoked: 48 Smoked in Last 30 Days: No e-Cigarette/Vaping Use: Never Used Second Hand Smoke Exposure: No Use of substances other than those prescribed or required for medical reasons: No Substance Use Type: Marijuana Advance Directives: Yes Advance Directives on File: Yes Advance Directives Date on File: 12/22/21 Patient : No service: No Current occupational status: disabled Current occupation: rt handed Cognitive needs: No Hearing needs: No Vision needs: Yes Physical Exam Vital Signs: Vital Signs: Last Vital Signs Temp 97.6 F 12/18/24 20:21 Pulse 91 12/18/24 20:21 Resp 17 12/18/24 20:21 BP 118/73 12/18/24 20:21 Pulse Ox 98 12/18/24 20:21 O2 Del Method Room Air 12/18/24 20:21 BMI result Body Mass Index 19.9 Const: Other: The patient is awake and alert. She looks somewhat anxious. HEENT: Other: Face is symmetrical. Mucous membranes moist. Eyes: General: appearance normal, both eyes and all related structures Neck: Neck: Yes full ROM and Yes no JVD Chest: Other: No chest wall tenderness Resp: Effort & Inspection: normal respiratory effort Auscultation: clear to auscultation bilaterally Cardio: Rate: regular rate Rhythm: regular rhythm Heart sounds: S1 normal heart sound present and S2 normal heart sound present GI: Other: Abdomen is soft and nontender Skin: Other: Skin is dry and unremarkable Neuro: Other: The patient is awake and alert with a normal mental status. Cranial nerves are grossly intact. She moves her extremities normally and appropriately. Extrem: Other: No peripheral edema. No calf swelling or tenderness. No asymmetry. Course Course Course Narrative: This is a rapid medical exam. Defer additional HPI, ROS, PE to primary provider. 64 yo with PMH of UTI, neuropathy, GERD, HTN, DM, NSTEMI, COPD, anxiety, HLD, bipolar disorder, [facility] 10/19 dx with STEMI PCI and stent to OM2 presents the ER with complaints of chest pain, palpitations since 2pm. Will obtain EKG, CXR, labs -Mildly tachycardic, otherwise normal VS -A. Pascucci DELIVERY CONSULTANT Medications Administered Discontinued Medications Generic Name Dose Route Start Last Admin Trade Name Freq PRN Reason Stop Dose Admin Morphine Sulfate 4 mg 12/18/24 18:28 12/18/24 18:38 Morphine Sulfate 4 Mg/Ml Cartridge IM 12/18/24 18:29 4 mg ONCE ONE Administration Protocol Ondansetron HCl 4 mg 12/18/24 18:29 12/18/24 18:38 Ondansetron Odt 4 Mg Tab.Rapdis TRANSLINGU 12/18/24 18:30 4 mg ONCE ONE Administration Medical Decision Making Medical Decision Making [facility] Narrative: The patient is a 64-year-old woman with a history of coronary disease. Her most recent significant episode of coronary disease occurred almost 2 months ago when she went to the emergency room at [facility] in early October and was found to have an NSTEMI. At cardiac catheterization she was found to have an InStent restenosis. I belive she received angioplasty and a new stent. She has been on aspirin and ticagrelor since then. She went to cardiac rehab this morning. She was apparently tachycardic at cardiac rehab but was not having any significant chest pain. After cardiac rehab she developed chest pain. She also developed a headache. She says the chest pain was worse with breathing. She says that both her chest pain and a headache or typical of her anginal syndromes. The patient did not appear obviously acutely ill. EKG shows no definite acute ischemic changes. Her troponins are not significantly rising. Her D-dimer is undetectable. She was given an IM injection of morphine for her pain. She seemed to feel better. She was on eager to go home. She should follow up with her PCP and her meter maintenance person. Lab Data 12/18/24 16:15 12/18/24 16:15 Labs: Lab Results 12/18/24 12/18/24 Range/Units 16:15 18:54 WBC 11.0 H (4.8-10.8) X10*3/uL RBC 4.15 L (4.20-5.50) X10*6/uL Hgb 12.4 (12.0-16.0) g/dl Hct 36.7 L (37.0-47.0) % MCV 88.4 (80.0-98.0) fL MCH 29.9 (27.0-33.0) pg MCHC 33.8 (31.0-35.0) g/dl RDW 14.6 (11.0-16.0) % Plt Count 233 (160-400) X10*3/uL MPV 10.3 (9.4-12.3) fL Immature Gran % (Auto) 0.4 (0.0-0.4) % Neut % (Auto) 74.1 H (45-73) % Lymph % (Auto) 19.3 L (20-40) % Payette % (Auto) 5.6 (2-11) % Eos % (Auto) 0.3 (0-4) % Baso % (Auto) 0.3 (0-2) % Lymph # (Auto) 2.1 (1.2-4.9) X10*3/uL Payette # (Auto) 0.6 (0.1-1.2) X10*3/uL Eos # (Auto) 0.0 (0.0-0.4) X10*3/uL Baso # (Auto) 0.0 (0.0-0.2) X10*3/uL Abs Immat Gran (auto) 0.04 H (0.00-0.03) X10*3/uL Absolute Neuts (auto) 8.2 (2.0-8.3) x10*3/uL Absolute Nucleated RBC 0.000 (0.0-0.012) X10*3/uL Nucleated RBC % (auto) 0.0 (0.0-0.2) /100WBC PT 13.3 H (10.9-12.4) SEC INR 1.1 (0.9-1.1) D-Dimer High Sensitivty < 150 NG/ML Sodium 144 (135-145) mmol/L Potassium 3.9 (3.3-5.1) mmol/L Chloride 110 H (96-108) mmol/L Carbon Dioxide 24 (22-29) mmol/L Anion Gap 14 (12-20) BUN 10 (9-16) mg/dL Creatinine 0.73 (0.5-1.4) mg/dL Estim Creat Clear Calc 51.5 Estimated GFR > 60 Random Glucose 94 (60-115) mg/dL Calcium 9.1 (8.4-10.2) mg/dL Total Bilirubin 0.3 (0.0-1.0) mg/dL Direct Bilirubin 0.1 (0.0-0.5) mg/dL AST 31 (5-31) U/L ALT 37 H (0-31) U/L Alkaline Phosphatase 58 (39-117) U/L Troponin I High Sens 14.6 D 16.3 (<3.5-17.0) ng/L Total Protein 7.3 (6.5-8.0) g/dL Albumin 4.2 (3.5-5.0) g/dL Independent Interpretation I performed an independent interpretation of an: EKG Interpretation: EKG at 1522 shows sinus tachycardia at 142 beats per minute. No definite acute ischemic changes. Discharge Plan Discharge Clinical Impression: Chest pain Patient Disposition: Home, Self-Care Additional Instructions: Your testing today is not showing any signs of a heart attack. Additionally you have been tested for the possibility of a blood clot in your lungs and you do not have a blood clot in your lungs either. Also your chest x-ray looks good. Please rest and take it easy tonight. Continue your regular medications. Please follow up with your regular doctor and your meter maintenance person soon. Return to the emergency room if you feel significantly worse. Prescriptions: No Action (DME) walker Misc See Rx Instructions .Route Qty: 1 0RF Rx Instructions: with seat Trulicity 1.5 mg/0.5 mL pen injector 1.5 mg subcut TH@0900 Qty: 6 3RF (DME) Shower Chair Misc See Rx Instructions .Route Qty: 1 0RF Rx Instructions: As directed (DME) clamp on tub safety rail See Rx Instructions .Route .MEDSUPPLY Qty: 1 0RF Rx Instructions: As directed (DME) ez counter former bed assist support See Rx Instructions .Route .MEDSUPPLY Qty: 1 0RF Rx Instructions: As directed famotidine 20 mg tablet 20 mg PO BEDTIME 90 Days Qty: 90 1RF methotrexate sodium 2.5 mg tablet 15 mg PO QWEEK Qty: 72 1RF aspirin 81 mg tablet,delayed release (DR/EC) 81 mg PO DAILY 90 Days Qty: 90 1RF folic acid 1 mg tablet 1 mg PO DAILY Qty: 90 1RF (DME) lancets [FreeStyle Lancets] 28 gauge misc See Rx Instructions .Route Qty: 100 3RF Rx Instructions: Use 1 lancet once a day Brilinta 90 mg tablet 90 mg PO BID Qty: 90 2RF (DME) FreeStyle Lite Strips Strip MISCELLANEOUS DAILY Qty: 100 1RF Rx Instructions: Use 1 test strip three times a day pregabalin 200 mg capsule 200 mg PO BID Qty: 60 4RF trazodone 100 mg tablet 100 mg PO BEDTIME 90 Days Qty: 90 0RF ondansetron 4 mg tablet,disintegrating 4 mg PO Q8H PRN (Reason: nausea and vomiting) Qty: 20 0RF tramadol 50 mg tablet 50 mg PO Q6H PRN (Reason: pain) Qty: 20 0RF tlocsrddpw-dczxdusjhylqy-odtk 50-325-40 mg tablet 1 tab PO Q6H PRN (Reason: haeadace) Qty: 20 0RF (DME) pen needle, diabetic [Comfort EZ Pen Britton] 31 gauge x 5/16 needle See Rx Instructions .ROUTE .MEDSUPPLY Qty: 200 11RF Rx Instructions: Use 1 pen needle 6 times a day albuterol sulfate 90 mcg/actuation HFA aerosol inhaler 2 inh inhalation Q4H PRN (Reason: Shortness Of Breath Or Wheezing) (DME) blood pressure monitor Kit See Rx Instructions .Route Qty: 1 0RF Rx Instructions: As directed Trelegy Ellipta 200-62.5-25 mcg blister with device 1 ea inhalation DAILY simethicone 125 mg capsule 125 mg PO DAILY PRN (Reason: gas pain) Qty: 30 0RF pantoprazole 40 mg tablet,delayed release (DR/EC) 40 mg PO DAILY 90 Days Qty: 90 1RF nicotine 14 mg/24 hr patch 24 hour 1 patch topical DAILY metoprolol succinate 25 mg tablet extended release 24 hr 25 mg PO DAILY nicotine (polacrilex) 2 mg gum PO trazodone 50 mg tablet 50 mg PO BEDTIME PRN (Reason: sleep) 90 Days Qty: 90 0RF (DME) blood pressure test kit-medium Kit See Rx Instructions .Route Qty: 1 0RF Rx Instructions: As directed metoclopramide HCl [Reglan] 5 mg tablet 5 mg PO TID PRN (Reason: nausea and vomiting) 30 Days Qty: 90 1RF Rx Instructions: Take 30 min before lunch and dinner and at bedtime Referrals: Joseph Salmon MD [Physician] - (Chest pain) Adela Gipson MD [Primary Care Provider] - (Chest pain, headache) Interventions: ED Discharge Assessment Last Done: 12/18/24 20:21 Discharge Date/Time: 12/18/24 20:23 Print Language: Omani
[2024-12-18 16:00] VITALS: BP 138/67; PULSE 94; RESP 18; TEMP 36.7; O2SAT 100
[2024-12-18 16:19] LABS: MANUAL DIFF FLAG NO
[2024-12-18 16:20] LABS: Basophils Percent Auto 0.3 % (0-2); Eosinophils Percent Auto 0.3 % (0-4); Hematocrit 36.7 % (37.0-47.0); Hemoglobin 12.4 g/dl (12.0-16.0); Imm Gran Abs Auto 0.04 X10*3/uL (0.00-0.03); Imm Gran Pct Auto 0.4 % (0.0-0.4); Lymphocytes Absolute Auto 2.1 X10*3/uL (1.2-4.9); Lymphocytes Percent Auto 19.3 % (20-40); Mean Corpuscular HGB Conc 33.8 g/dl (31.0-35.0); Mean Corpuscular Hemoglobin 29.9 pg (27.0-33.0); Mean Corpuscular Volume 88.4 fL (80.0-98.0); Mean Platelet Volume 10.3 fL (9.4-12.3); Monocytes Absolute Auto 0.6 X10*3/uL (0.1-1.2); Monocytes Percent Auto 5.6 % (2-11); Neutrophils Absolute Auto 8.2 x10*3/uL (2.0-8.3); Neutrophils Percent Auto 74.1 % (45-73); Platelet Count 233 X10*3/uL (160-400); Red Blood Count 4.15 X10*6/uL (4.20-5.50); Red Cell Distribution Width 14.6 % (11.0-16.0)
[2024-12-18 16:30] LABS: INTERNATIONAL NORM RATIO 1.1 (0.9-1.1); Prothrombin Time 13.3 SEC (10.9-12.4)
[2024-12-18 16:39] LABS: Troponin-I High Sensitivity 14.6 ng/L (<3.5-17.0)
--- OUTSIDE RECORDS SUMMARY | 2024-12-18 16:41 | XMS_ITS | Data Portability ---
Author Organization [employer] [employer] Address [address] [place] [id number] Care Team Providers Care Library Media Specialist Name Role Phone HIM CCA Primary Care Provider Assessment Encounter Date Assessment Date Assessment LastModified by Organization Details LastModified Time 03/27/2024 03/27/2024 I provided real -time medical direction via phone for this encounter, and was available for additional phone based assistance as needed. I have reviewed and agree with the Assessment and Plan as documented by the Bench Machine Operator. We discussed the diagnostic uncertainty of home [...] for evaluation and management. Report called to [facility] ER [email or web address] Not available 03/27/2024 13:41:34 Plan of Treatment [...] 03/27/2024 6 RxNorm Radha Fernández MD [address], [place], [address] [facility] [employer] 13:34:28 Medications Name Sig Start Date Stop [...] 4 114 /min 20 /min 121.92 cm 07418 g 94 % 94 % 98.8 [degF] [...] SNOMED-CT Code Diagnosis ICD10 Code Diagnosis Note [id number] Radha Fernández MD Main - [address] [address] 03/27/2024 13:23:51 03/29/2024 11:48:16 Diverticulitis [id number] K57.92 Health Concerns Section Related Observation LastModified by Organization Detai ls LastModified Time None Recorded Concern Status LastModified by Organization Details LastModified Time None Recorded Advance Directives Directive None Recorded Payers Encounter Date Sequence Insurance Name Policy Number Policy Charles Covered Member ID Charles Member ID Guarantor Name 03/27/2024 1 [facility] - DOS ON OR AFTER 2023 - DUAL ELIGIBLE - HALFWAY OPTIONS AND ONE CARE (MEDICARE REPLACEMENT/ADV ANTAGE - HMO) Sosa Joiner [id number] Sosa Joiner Notes Date Note Type Note [...] was seen in the ER 03/25 at [facility] -CT attached. She has been complaining of a frontal headache -CT head and neck were negative for acute disease in the ER -she is complaining of severe abdominal pain Bench Machine Operator POC Test Results from Amy Montana - [facility] Blood Glucose Measurement (1) [14:39] Blood Glucose: 149 mg/dL .................... .................... .................... .................... .................... .................... .................... . Bench Machine Operator Note From Amy Montana: Sent to a [...] d CT scans performed (results uploaded to [facility]) at [place] ED on 03/25 and prescribed Levofloxacin 500mg [...] narcotics for pain during flares. [facility]. [facility]/venous blood draw, stating she would prefer to go to ED. [facility] consulted and orders BG as pt does not check BG regularly. Pt states she usually uses CGM, but ran out, and hasn't used glucometer for over 1 week. B; [facility] calls report to [facility] ED. 911 contacted and pt care transferred to [facility] crew. Pt transported to [facility] via [facility]. .................... .................... .................... .................... .................... .................... .................... . Disposition: Fulfilled Radha Fernández MD [address], [place], [address], [facility] - [employer] TOLBERT 03/27/2024 14:55:37 OBGyn Episode No OBEpisode recorded.
--- OUTSIDE RECORDS SUMMARY | 2024-12-18 16:42 | XMS_ITS | Clinical Summary ---
Author Organization [facility] [facility] Address [address] [place] [address] Phone Care Team Providers Care Transmission Superintendent Name Role Phone Adela Wasserman MD Primary Care Provider [phone] Social History Tobacco Use Types Packs/Day Years [...] age to complete this topic Care Teams Transmission Superintendent Relationship Specialty Start Date End Date Adela Wasserman MD [address] [place] [address] , [address] [facility] D[facility]A: [facility] [place], [place] PCP - General Internal Medicine 12/08/24
--- OUTSIDE RECORDS SUMMARY | 2024-12-18 16:42 | XMS_ITS | Clinical Summary ---
Author Organization [facility] Address [address] [place] [address] Phone Care Team Providers Care Filtration Plant Mechanic Name Role Phone Adela Gipson MD Primary Care Provider [phone] Allergies Active Allergy Reactions Criticality Noted Date [...] Visit [facility] [address] [place] [address] Alexi Warren MD [address] [address] Health Maintenance Due Date Last Done Comments [...] Most Recently Relevant to Health Maintenance Insurance [facility] JOSEF RUELAS [id number] Care Teams Filtration Plant Mechanic Relationship Specialty Start Date End Date Adela Gipson MD [address] [place], [place] PCP - General Internal Medicine 05/28/22
[2024-12-18 16:46] LABS: Alanine Aminotransferase 37 U/L (0-31); Albumin Level 4.2 g/dL (3.5-5.0); Anion Gap 14 (12-20); Aspartate Amino Transferase 31 U/L (5-31); Bilirubin Direct 0.1 mg/dL (0.0-0.5); Bilirubin Total 0.3 mg/dL (0.0-1.0); Blood Urea Nitrogen 10 mg/dL (9-16); Calcium 9.1 mg/dL (8.4-10.2); Carbon Dioxide 24 mmol/L (22-29); Chloride 110 mmol/L (96-108); Creatinine Clr Calc Pharmacy 51.5; Estimated Glomerular Filt Rate > 60; Glucose Random 94 mg/dL (60-115); Potassium 3.9 mmol/L (3.3-5.1); Sodium 144 mmol/L (135-145); Total Protein 7.3 g/dL (6.5-8.0)
[2024-12-18 16:52] LABS: Alkaline Phosphatase 58 U/L (39-117)
[2024-12-18 18:37] LABS: D Dimer High Sensitivity < 150 NG/ML
[2024-12-18] MEDS: Ondansetron ODT 4 MG TAB.RAPDIS TRANSLINGU (18:38)
[2024-12-18] MEDS: Morphine Sulfate 4 MG/ML CARTRIDGE IM (18:38)
[2024-12-18 19:17] LABS: Troponin-I High Sensitivity 16.3 ng/L (<3.5-17.0)
[2024-12-18 19:21] VITALS: BP 118/73; PULSE 95; RESP 15; O2SAT 98
--- NOTE | 2024-12-18 19:24 | PC.NURSE ---
This RN assumed pt care @ 1900. Pt a&ox4, no signs of distress Pt resting bed watching tv. Pt reporting 10/10 cp pain, provider notified and aware No new orders at this time Pt aslo requested and given water and ice chips. Plan of care ongoing.
[2024-12-18 20:20] VITALS: BP 118/73; PULSE 91; RESP 17; TEMP 36.4; O2SAT 98
[2024-12-18 20:21] VITALS: BP 118/73; PULSE 91; RESP 17; TEMP 36.4; O2SAT 98
== END 2024-12-18 20:23 | disposition home or self-care (01) ==
PROVIDERS: Nurse Practitioner Family; Emergency Provider Emergency Medicine; PCP Internal Medicine
DX: R07.89 Other chest pain (principal); I25.10 Atherosclerotic heart disease of native coronary artery without angina pectoris; I10 Essential (primary) hypertension; E11.9 Type 2 diabetes mellitus without complications; R00.0 Tachycardia, unspecified; R00.2 Palpitations; Z79.899 Other long term (current) drug therapy
CPT/HCPCS: 36415; 71046; 80048; 80076; 84484; 85025; 85379; 85610; 93005; 96372; 99284; 99285; J2270

== ENCOUNTER → 2024-12-18 15:18 | Outpatient (BNV) | payer OTHER, SELFPAY ==
[2024-07-16 09:49] VITALS: BP 96/60; BP 96/66; BMI 22.5
== END ==
PROVIDERS: Emergency Provider Emergency Medicine; PCP Internal Medicine; Visit Provider Internal Medicine
DX: R00.0 Tachycardia, unspecified (principal)
CPT/HCPCS: 93010

== ENCOUNTER → 2024-12-18 15:37 | Outpatient (BNV) | payer OTHER, SELFPAY ==
[2024-07-16 09:49] VITALS: BP 96/60; BP 96/66; BMI 22.5
== END ==
PROVIDERS: PCP Internal Medicine; Visit Provider Radiology Diagnostic Radiology
DX: J44.9 Chronic obstructive pulmonary disease, unspecified (principal)
CPT/HCPCS: 71046

== ENCOUNTER 2024-12-23 08:45 | Outpatient (AMB) | payer OTHER, SELFPAY ==
[2024-07-16 09:49] VITALS: BP 96/60; BP 96/66; BMI 22.5
[2024-12-23 08:47] VITALS: BP 127/64; PULSE 79; BMI 20.7
--- NOTE | 2024-12-23 08:47 | A.OFFVIS_ITS ---
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 Experience Required: No Accompanied by: Self / Same As Patient Allergies methylprednisolone Allergy (Severe, Verified 12/23/24 09:00) Rash from Solu-Medrol shellfish derived Allergy (Intermediate, Verified 12/23/24 09:00) Hives etanercept [From Enbrel] Adverse Reaction (Severe, Verified 12/23/24 09:00) Facial Swelling metformin Adverse Reaction (Severe, Verified 12/23/24 09:00) Diarrhea metronidazole [From FLAGYL] Adverse Reaction (Severe, Verified 12/23/24 09:00) Diarrhea prednisone Adverse Reaction (Intermediate, Verified 12/23/24 09:00) hallucinations, more than 20 mg doses Medication List - Last Reconciled 12/23/24 by Jeanette Rain MD albuterol sulfate 90 mcg/actuation 2 inhalations inhalation Q4H PRN aspirin 81 mg PO DAILY 90 days blood pressure monitor As directed blood pressure test kit-medium As directed blood sugar diagnostic (FreeStyle Lite Strips) Use 1 test strip three times a day ufcspajyue-umewwvszhdefe-oztq 50-325-40 mg 1 tab PO Q6H PRN [clamp on tub safety rail As directed] dulaglutide (Trulicity) 1.5 mg (0.5 mL) subcut TH@0900 [ez certified ophthalmic assistant bed assist support As directed] famotidine 20 mg PO BEDTIME 90 days yijbqfusetf-hsahppusf-yhofhovv 200-62.5-25 mcg (Trelegy Ellipta) 1 ea inhalation DAILY folic acid 1 mg PO DAILY lancets (FreeStyle Lancets) Use 1 lancet once a day methotrexate sodium 15 mg (6 x 2.5 mg) PO QWEEK metoclopramide HCl (Reglan) 5 mg PO TID PRN 30 days metoprolol succinate ER 25 mg PO DAILY nicotine 1 patch topical DAILY nicotine (polacrilex) mg PO ondansetron 4 mg PO Q8H PRN pantoprazole 40 mg PO DAILY 90 days pen needle, diabetic (Comfort EZ Pen [place]) Use 1 pen needle 6 times a day pregabalin 200 mg PO BID Shower Chair As directed simethicone 125 mg PO DAILY PRN ticagrelor (Brilinta) 90 mg PO BID tramadol 50 mg PO Q6H PRN trazodone 50 mg PO BEDTIME PRN 90 days trazodone 100 mg PO BEDTIME 90 days walker with seat HPI Comments Details: Patient is a 64-year-old female with hx of breast cancer completed anastrozole, diabetes complicated by polyneuropathy, hypertension complicated by STEMI 10/2024 with stenting and peripheral arterial disease, hyperlipidemia, bipolar 1 disorder with depression, hyperparathyroidism, osteoporosis on Reclast infusions with Endo, seropositive rheumatoid arthritis and fibromyalgia here today for follow up Interval History: Patient last seen 09/24/[address] Reyes. At that time she was just restarting her methotrexate after holding it in the setting of an infection. To holding her methotrexate she was complaining of multiple joint pains. She was given a prednisone taper to help with her mild RA flare Since then, She had a STEMI 10/19 s/p stenting x 3 Today, Complains of pain in the center of her back that radiates up her spine to her head, then associated with a migraine. Had XRs which did not show any significant pathology. With respect to her hands - AM stiffness x 10-15 mins. Needs to put hands in hot water to help - Associated with swelling Rheumatologic History: +++RF+++CCP dx around 1999 [place]: 04/2021- 06/2022- stopped due to severe COPD requiring long standing azithromycin Plaquenil: approx. 02/2021-May 2021 self stopped Enbrel: approx. 02/2021 ordered after cleared for hep A, stopped due to allergy Sulfasalazine: approx. 02/2019- 02/2021 - restarted 09/27/2022 -04/2023 stopped due to heaedache and nausea Methorexate: approx. 11/2016-12/2018 started in [facility]. Diagnosed with breast CA so methotrexate discontinued. Changed to sulfsalazine 500mg 2 tabs BID to prevent lung fibrosis as patient was receiving radiation therapy for her breast CA. Completed Radiation therapy February 2019. OnTamoxifen but had side effects so was started on Letrozole in May 2019. MTX restarted 02/2024 Xeljanz: approx. 03/2018-04/2018 Cimzia: aprrox.05/2017- did not take Humira: dates unknown Leflunomide: many years ago, then approx. 08/2020-02/2021 Current Rheumatology Medication(s): Methotrexate 15mg weekly Folic acid 1mg daily PFS Medical History NSTEMI (non-ST elevated myocardial infarction) GERD (gastroesophageal reflux disease) Diverticulitis large intestine jail (current) use 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 Acute respiratory distress Tendonitis of ankle or foot Cough Stable angina Anxiety CAD (coronary artery disease) HLD (hyperlipidemia) HTN (hypertension) COPD exacerbation Hyperkalemia Atherosclerotic cardiovascular disease Hospital discharge follow-up Colitis CVA (cerebral vascular accident) (~2017) Breast pain, right Rash Bloody diarrhea PAD (peripheral artery disease) Hyperlipidemia LDL goal <100 COPD (chronic obstructive pulmonary disease) Infiltrating ductal carcinoma of left breast, stage 2 Insomnia Dyslipidemia Bipolar 1 disorder, depressed Cough Restrictive airway disease Hypothyroid IDDM (insulin dependent diabetes mellitus) Vitamin D deficiency Osteoporosis Breast cancer Hyperparathyroidism Thyroid nodule T2DM (type 2 diabetes mellitus) Depression Fibromyalgia Seropositive rheumatoid arthritis Reactive airways dysfunction syndrome Allergic rhinitis Irritable bowel Anxiety Bronchial asthma Diabetes type 2, uncontrolled Surgical History S/P laparoscopic colectomy (04/15/24) Hx of sigmoidoscopy History of bronchoscopy Hx of endoscopy H/O cardiac catheterization History of lumpectomy of left breast History of pubovaginal sling History of esophagogastroduodenoscopy (EGD) History of tubal ligation History of colonoscopy History of bunionectomy of both great toes H/O: hysterectomy Family History Mother Diabetes HTN (hypertension) Uterus cancer Malignant tumor of head Breast cancer Father Diabetes HTN (hypertension) CVD (cardiovascular disease) Heart problem Maternal Aunt Breast cancer Brother Myocardial infarction S/P CABG x 4 Family/Other FH: mental illness Family/Other Lung cancer Other Mental health disorder Social History Household Members: Family Household Members Other:: sister Housing: House Are you a primary md do resident urgent care to a significant other at home: No Do you presently have visiting nurse or other home services: No Unable to assess alcohol history related to: Unknown Alcohol intake: never Comment: Low fall Patient Tobacco Use Status: Former Tobacco user Tobacco use type: Cigarette Cigarette Packs Per Day: 0.5 Cigarettes Per Day: 3 Years Smoked: 48 e-Cigarette/Vaping Use: Never Used Second Hand Smoke Exposure: No Substance Use Type: Marijuana Advance Directives Date on File: 12/22/21 service: No Current occupational status: disabled Current occupation: rt handed Cognitive needs: No Hearing needs: No Vision needs: Yes Review of Systems Const Details: Review of Systems Constitutional: Denies fever, chills, weight loss ENT: Denies vision changes, eye pain or eye redness, dental caries, dry mouth GI: Denies nausea, vomiting, diarrhea, abdominal pain, change in BM Pulm: Denies SOB, JAFFE, hemoptysis, wheezing Cards: Denies chest pain, palpitations Skin: Denies Raynaud's, rash, nail changes, photosensitivity, BINDER CUTTER HAND: Denies headaches, weakness, paresthesias, recurrent falls MSK: as per HPI All other systems reviewed and are unremarkable except noted above Physical Exam Vital Signs: Last Vital Signs Pulse 79 12/23/24 08:47 BP 127/64 12/23/24 08:47 BMI result Body Mass Index 20.7 Vital signs reviewed Physical Examination CONSTITUITIONAL Patient alert and cooperative. Well appearing and in no apparent painful distress HEENT Conjunctiva and sclera clear. ?Pupils equal round and reactive to light. ?No lymphadenopathy. ? CHEST/RESPIRATORY SYSTEM Normal respiratory effort and able to speak in complete sentences. ?Clear to auscultation bilaterally. ?No crackles, rales, rhonchi, wheezes heard. CARDIAC SYSTEM Regular rate and rhythm. ?S1 and S2 heard no murmurs. ?Radial pulses intact bilaterally MSK Hands: ?Good certified ophthalmic assistant strength bilaterally. No deformities noted. ?TTP of the 2nd and 3rd PIP of the right hand without swelling. Wrists: ?Full range of motion at the wrists without pain. ?No tenderness to palpation or synovitis noted to the wrists. Elbows: Full range of motion without pain. No tenderness, weakness, swelling, increased warmth or erythema. Shoulders: Full range of motion without pain. No tenderness, weakness, swelling, increased warmth or erythema. TTP of the bilateral AC joints Hips: Full range of motion without pain. Hip bursa: No tenderness to palpation Knees: ?Full range of motion. ?No tenderness, swelling, increased warmth or erythema.?Crepitations felt bilaterally Ankles: Full range of motion. ?No tenderness, swelling, increased warmth or erythema.? Feet: ?Negative squeeze test. ?No tenderness to palpation or swelling of the MTPs. Tender points:?No tenderness to palpation of the bilateral trapezius, supraspinatus, greater trochanters, anterior costochondral junctions, bilateral gluteal areas, bilateral suboccipital muscle insertions TTP of midline T spine SKIN Skin intact without rashes. Quality Reporting (2019) Adult ([facility] 138/01/09/69) Smoking risk assessment performed?: Yes Patient Tobacco Use Status: Former Tobacco user Results Reviewed Results Reviewed: Laboratory Tests 12/18/24 16:15 WBC 11.0 H RBC 4.15 L Hgb 12.4 Hct 36.7 L Plt Count 233 Sodium 144 Potassium 3.9 Chloride 110 H Carbon Dioxide 24 BUN 10 Creatinine 0.73 Calcium 9.1 Total Bilirubin 0.3 Direct Bilirubin 0.1 AST 31 ALT 37 H Alkaline Phosphatase 58 XR C spine 12/16/2024 Findings: Normal alignment. No acute fractures or dislocation. Multilevel disc space narrowing and endplate osteophyte formation, as well as facet hypertrophy. No prevertebral soft tissue swelling. XR T spine 12/16/2024 Findings: Normal vertebral body alignment. Multilevel disc space narrowing and endplate osteophyte formation, as well as facet hypertrophy. No significant degenerative change. XR L Spine 12/16/2024 Findings: Normal alignment. No acute fractures or dislocation. Multilevel disc space narrowing and endplate osteophyte formation, as well as facet hypertrophy. Assessment & Plan Assessment & Plan (1) Seropositive rheumatoid arthritis: Comment: +++RF+++CCP dx around 1999 [place]: 04/2021- 06/2022- stopped due to severe COPD requiring long standing azithromycin Plaquenil: approx. 02/2021-May 2021 self stopped Enbrel: approx. 02/2021 ordered after cleared for hep A, stopped due to allergy Sulfasalazine: approx. 02/2019- 02/2021 - restarted 09/27/2022 -04/2023 stopped due to heaedache and nausea Methorexate: approx. 11/2016-12/2018 started in [facility]. Diagnosed with breast CA so methotrexate discontinued. Changed to sulfsalazine 500mg 2 tabs BID to prevent lung fibrosis as patient was receiving radiation therapy for her breast CA. Completed Radiation therapy February 2019. OnTamoxifen but had side effects so was started on Letrozole in May 2019. MTX restarted 02/2024 Xeljanz: approx. 03/2018-04/2018 Cimzia: aprrox.05/2017- did not take Humira: dates unknown Leflunomide: many years ago, then approx. 08/2020-02/2021 Code(s): M05.9 - Rheumatoid arthritis with rheumatoid factor, unspecified Category: Medical Plan: #Seropositive RA Patient is a 64-year-old female with seropositive rheumatoid arthritis Currently in low disease activity but still has a frequent minor flares We will add Plaquenil to see if this will cover her minor flares Plan - Start plaquenil 200mg daily - Continue Mtx 15mg weekly - Folic acid 1mg daily - RTC 4 months - Labs before visit: CBC, CMP, ESR, CRP (2) Thoracic spine pain: Code(s): M54.6 - Pain in thoracic spine Category: Medical Plan: #Thoracic and Cervical Pain Patient complaining of thoracic and C-spine pain. X-rays without any evidence of fracture but there is note made of degenerative disc disease with endplate osteophyte formation and multilevel disc space narrowing. Given her history of osteoporosis currently on Reclast my concern is that she may have an occult fracture. 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 Limit alcohol and avoid Bactrim ? Monitoring: ?CBC, BMP, LFTs every 3-4 months and hepatitis serologies as needed (4) Long-term use of hydroxychloroquine: Code(s): Z79.899 - Other concrete paver (current) drug therapy Plan: #Long-term Use of Hydroxychloroquine Discussed with patient the risks and benefits of hydroxychloroquine in managing the rheumatic condition Benefits include: - Reduced pain, reduce mortality, maintenance of remission and reduction of flares Risks include: - GI upset, skin hyperpigmentation, retinal toxicity (especially after more than 5 years of use), myopathy Advised yearly ophthalmology visits We will refer to Ophthalmology at next visit Plan I spent 30 minutes reviewing the record and labs, taking a history, examining the patient, discussing the treatment plan and documenting in the medical record Orders: Orders Complete Blood Count Auto Diff 4 Months M05.9 - Rheumatoid arthritis with rheumatoid factor, unspecified, Z79.631 - supplier quality manager (current) use of antimeta bolite agent, Z79.899 - Other concrete paver (current) drug therapy C Reactive Protein 4 Months M05.9 - Rheumatoid arthritis with rheumatoid factor, unspecified, Z79.631 - jail (current) use of antimetabolite agent, Z79.899 - Other concrete paver (current) drug therapy Erythrocyte Sedimentation Rate 4 Months M05.9 - Rheumatoid arthritis with rheumatoid factor, unspecified, Z79.631 - jail (current) use of antimetabolite agent, Z79.899 - Other [facility] (current) drug therapy Hepatitis A,B,C Profile 4 Months M05.9 - Rheumatoid arthritis with rheumatoid factor, unspecified, Z79.631 - supplier quality manager (current) use of antimetabolite agent, Z79.899 - Other [facility] (current) drug therapy T Spot TB 4 Months M05.9 - Rheumatoid arthritis with rheumatoid factor, unspecified, Z79.631 - supplier quality manager (current) use of antimetabolite agent, Z79.899 - Other concrete paver (current) drug therapy CT lumbar spine wo IV con Today M51.36 - Other intervertebral disc degeneration, lumbar region, M54.2 - Cervicalgia, M54.6 - Pain in thoracic spine, M81.0 - Age-related osteoporosis without current pathological fracture Comprehensive Met. Panel 4 Months M05.9 - Rheumatoid arthritis with rheumatoid factor, unspecified, Z79.631 - jail (current) use of antimetabolite agent, Z79.899 - Other [facility] (current) drug therapy CT cervical spine wo IV con Today M51.36 - Other intervertebral disc degeneration, lumbar region, M54.2 - Cervicalgia, M54.6 - Pain in thoracic spine, M81.0 - Age-related osteoporosis without current pathological fracture CT thoracic spine wo IV con Today M51.36 - Other intervertebral disc degeneration, lumbar region, M54.2 - Cervicalgia, M54.6 - Pain in thoracic spine, M81.0 - Age-related osteoporosis without current pathological fracture Medications: New hydroxychloroquine (Plaquenil) 200 mg PO DAILY 90 tabs 1RF M05.9 - Rheumatoid arthritis with rheumatoid factor, unspecified mirtazapine 15 mg PO BEDTIME 90 tabs 1RF G47.00 - Insomnia, unspecified Refilled methotrexate sodium 15 mg (6 x 2.5 mg) PO QWEEK 72 tabs 1RF M05.9 - Rheumatoid arthritis with rheumatoid factor, unspecified folic acid 1 mg PO DAILY 90 tabs 1RF Z79.61 - supplier quality manager (current) use 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 Discontinued trazodone Discontinued Reason: Doctor's Order 100 mg PO BEDTIME 90 days 90 tabs 0RF Coding Level of Care Code Est Pt Level 4 (37696) Complex EM visit Add On G2211 Diagnoses Seropositive rheumatoid arthritis M05.9 Thoracic spine pain M54.6 supplier quality manager methotrexate user Z79.631 Long-term use of hydroxychloroquine Z79.899
--- OUTSIDE RECORDS SUMMARY | 2024-12-23 08:48 | XMS_ITS | Clinical Summary ---
Author Organization [facility] Address [address] [place] [address] Phone Care Team Providers Care Ground Water Technician Name Role Phone Adela Gipson MD Primary Care Provider [phone] Allergies Active Allergy Reactions Criticality Noted Date [...] Visit [facility] [address] [place] [address] [place] [id number] Alexi Warren MD [address] [address] Health Maintenance Due Date Last Done Comments [...] Most Recently Relevant to Health Maintenance Insurance [facility] JOSEF RUELAS [id number] Care Teams Ground Water Technician Relationship Specialty Start Date End Date Adela Gipson MD [address] [place], [place] PCP - General Internal Medicine 05/28/22
--- OUTSIDE RECORDS SUMMARY | 2024-12-23 08:48 | XMS_ITS | Clinical Summary ---
Author Organization [facility] ([place], [place]) [facility] Address [address] [place] [address] Phone Care Team Providers Care Shop Estimator Name Role Phone Adela Wasserman MD Primary Care Provider [phone] Social History Tobacco Use Types Packs/Day Years [...] age to complete this topic Care Teams Shop Estimator Relationship Specialty Start Date End Date Adela Wasserman MD [address] [place] [address] , [address] [facility] [place], [place] PCP - General Internal Medicine 12/08/24
--- OUTSIDE RECORDS SUMMARY | 2024-12-23 08:48 | XMS_ITS | Data Portability ---
Author Organization [employer] [place] [facility] [employer] Address [address] [place] [id number] Care Team Providers Care Senior Bi Developer Name Role Phone HIM CCA Primary Care Provider Assessment Encounter Date Assessment Date Assessment LastModified by Organization Details LastModified Time 03/27/2024 03/27/2024 I provided real -time medical direction via phone for this encounter, and was available for additional phone based assistance as needed. I have reviewed and agree with the Assessment and Plan as documented by the Excel Analyst. We discussed the diagnostic uncertainty of home [...] evaluation and management. Report called to [facility] ER [email or web address] Not available 03/27/2024 13:41:34 Plan of Treatment [...] 03/27/2024 6 RxNorm Radha Fernández MD [address], [place], [address] [facility] [employer] 13:34:28 Medications Name Sig Start Date Stop [...] 4 114 /min 20 /min 121.92 cm 49150 g 94 % 94 % 98.8 [degF] [...] SNOMED-CT Code Diagnosis ICD10 Code Diagnosis Note [id number] Radha Fernández MD Main - [address] [address] 03/27/2024 13:23:51 03/29/2024 11:48:16 Diverticulitis [id number] K57.92 Health Concerns Section Related Observation LastModified by Organization Detai ls LastModified Time None Recorded Concern Status LastModified by Organization Details LastModified Time None Recorded Advance Directives Directive None Recorded Payers Encounter Date Sequence Insurance Name Policy Number Policy Charles Covered Member ID Charles Member ID Guarantor Name 03/27/2024 1 [facility] - DOS ON OR AFTER 2023 - DUAL ELIGIBLE - DETENTION OPTIONS AND ONE CARE (MEDICARE REPLACEMENT/ADV ANTAGE - HMO) Sosa Joiner [id number] Sosa Joiner Notes Date Note Type Note [...] seen in the ER 03/25 at [facility] -CT attached. She has been complaining of a frontal headache -CT head and neck were negative for acute disease in the ER -she is complaining of severe abdominal pain Excel Analyst POC Test Results from Amy Montana - [facility] Blood Glucose Measurement (1) [14:39] Blood Glucose: 149 mg/dL .................... .................... .................... .................... .................... .................... .................... . Excel Analyst Note From Amy Montana: Sent to a [...] CT scans performed (results uploaded to [facility]) at [place] ED on 03/25 and prescribed Levofloxacin 500mg [...] narcotics for pain during flares. [facility]/venous blood draw, stating she would prefer to go to ED. [facility] consulted and orders BG as pt does not check BG regularly. Pt states she usually uses CGM, but ran out, and hasn't used glucometer for over 1 week. B; [facility] calls report to [facility] ED. 911 contacted and pt care transferred to [facility] crew. Pt transported to [facility] ED via [facility]. .................... .................... .................... .................... .................... .................... .................... . Disposition: Fulfilled Radha Fernández MD [address], [place], [address], [facility] - [employer] TOLBERT 03/27/2024 14:55:37 OBGyn Episode No OBEpisode recorded."
== END 2024-12-23 09:53 | disposition home or self-care (01) ==
PROVIDERS: PCP Internal Medicine; Visit Provider Student in an Organized Health Care Education/Training Program
DX: M05.79 Rheumatoid arthritis with rheumatoid factor of multiple sites without organ or systems involvement (principal); M54.6 Pain in thoracic spine; Z79.631 Long term (current) use of antimetabolite agent; Z79.899 Other long term (current) drug therapy
CPT/HCPCS: 99214; G2211

== ENCOUNTER → 2024-12-23 08:45 | Outpatient (BNVA) | payer OTHER, SELFPAY ==
[2024-07-16 09:49] VITALS: BP 96/60; BP 96/66; BMI 22.5
== END ==
PROVIDERS: PCP Internal Medicine; Visit Provider Student in an Organized Health Care Education/Training Program
DX: M05.9 Rheumatoid arthritis with rheumatoid factor, unspecified (principal); M54.6 Pain in thoracic spine; Z79.631 Long term (current) use of antimetabolite agent; Z79.899 Other long term (current) drug therapy
CPT/HCPCS: 99212

== ENCOUNTER → 2024-12-24 08:49 | Outpatient (BNVA) | payer OTHER, SELFPAY ==
[2024-07-16 09:49] VITALS: BP 96/60; BP 96/66; BMI 22.5
== END ==
PROVIDERS: PCP Internal Medicine; Referring Provider Internal Medicine; Visit Provider Registered Nurse Emergency
DX: M51.360 Other intervertebral disc degeneration, lumbar region with discogenic back pain only (principal); M79.7 Fibromyalgia
CPT/HCPCS: 99212

== ENCOUNTER 2024-12-28 10:00 | Outpatient (RCR) | payer OTHER, SELFPAY ==
[2024-07-16 09:49] VITALS: BP 96/60; BP 96/66; BMI 22.5
[2024-11-17 10:52] LABS: Glucose, Whole Blood 106 mg/dL (60-115)
[2024-11-17 10:52] LABS: Glucose, Whole Blood 170 mg/dL (60-115)
[2024-11-27 11:19] LABS: Glucose, Whole Blood 112 mg/dL (60-115)
[2024-12-09 12:53] LABS: Glucose, Whole Blood 106 mg/dL (60-115)
[2024-12-09 12:53] LABS: Glucose, Whole Blood 143 mg/dL (60-115)
[2024-12-11 11:11] LABS: Glucose, Whole Blood 100 mg/dL (60-115)
== END 2025-01-13 10:38 | disposition home or self-care (01) ==
LOC: HO.CR 10:00
PROVIDERS: PCP Internal Medicine; Visit Provider Internal Medicine Cardiovascular Disease
DX: I21.3 ST elevation (STEMI) myocardial infarction of unspecified site (principal)
CPT/HCPCS: 82947; 93798

== ENCOUNTER 2025-02-06 10:04 | Emergency (ER) | payer OTHER, SELFPAY ==
[2025-01-12 13:37] VITALS: BP 96/60; BP 96/66; BMI 22.5
[2025-02-06 10:07] VITALS: BP 137/84; PULSE 82; RESP 20; TEMP 36.8; O2SAT 98; BMI 20.9
--- NOTE | 2025-02-06 12:52 | ED_ITS ---
HPI - General Adult General Chief complaint: General Medical Stated complaint: cyst ? Time Seen by Provider: 02/06/25 12:50 Source: patient, RN notes reviewed and old records reviewed Mode of arrival: ambulatory Limitations: no limitations History of Present Illness ED Provider: Marilee COPPOLA narrative: Patient is a 64-year-old female with history NSTEMI, HTN, CAD, HLD, GERD, anxiety, bipolar disorder, CVA, PID, COPD, IDDM, hypothyroidism, fibromyalgia presenting to the emergency department with complaint of painful mass to her genital area which she noted yesterday. Denies any discharge or drainage from the area. Denies fevers. Reports the area is tender to touch. Denies any dysuria, frequency, or other urinary symptoms. Triage note states yellow vaginal discharge but patient denies abnormal vaginal discharge. MD complaint: genital mass Onset (ago): day(s) Location: genitals Related Data Home Medications ?Medication ?Instructions ?Recorded ?Confirmed albuterol sulfate 90 mcg/actuation 2 inh inhalation Q4H PRN Shortness 08/23/23 12/23/24 aerosol inhaler Of Breath Or Wheezing fluticasone fur. 200 mcg-umeclid 1 ea inhalation DAILY 02/06/24 12/23/24 62.5 mcg-vilant 25 mcg inhalat.powder (Trelegy Ellipta) metoprolol succinate 25 mg 25 mg PO DAILY 11/04/24 12/23/24 tablet,extended release 24 hr nicotine (polacrilex) 2 mg gum mg PO 11/04/24 12/23/24 nicotine 14 mg/24 hr daily 1 patch topical DAILY 11/04/24 12/23/24 transdermal patch Previous Rx's ?Medication ?Instructions ?Recorded walker #1 ea 02/08/23 pen needle, diabetic 31 gauge x #200 ea 11/27/23/16 (Comfort EZ Pen Mineral) dulaglutide 1.5 mg/0.5 mL 1.5 mg (0.5 mL) subcut TH@0900 #6 12/30/23 subcutaneous pen injector mL (Trulicity) Shower Chair #1 ea 01/15/24 clamp on tub safety rail #1 ea 01/15/24 ez heel coverer machine operator bed assist support #1 ea 01/15/24 famotidine 20 mg tablet 20 mg PO BEDTIME 90 days #90 tabs 01/31/24 ondansetron 4 mg disintegrating 4 mg PO Q8H PRN nausea and 02/19/24 tablet vomiting #20 tabs simethicone 125 mg capsule 125 mg PO DAILY PRN gas pain #30 04/28/24 caps pantoprazole 40 mg tablet,delayed 40 mg PO DAILY 90 days #90 tabs 08/04/24 release tramadol 50 mg tablet 50 mg PO Q6H PRN pain #20 tabs 10/06/24 yahbyyycci-ylsqiuojibfef-lkbrakwj 1 tab PO Q6H PRN haeadace #20 tabs 10/18/24 50 mg-325 mg-40 mg tablet aspirin 81 mg tablet,delayed 81 mg PO DAILY 90 days #90 tabs 10/19/24 release blood pressure monitor #1 ea 11/04/24 blood pressure test kit-medium #1 ea 11/04/24 trazodone 50 mg tablet 50 mg PO BEDTIME PRN sleep 90 days 11/04/24 #90 tabs metoclopramide HCl 5 mg tablet 5 mg PO TID PRN nausea and 11/19/24 (Reglan) vomiting 30 days #90 tabs lancets 28 gauge (FreeStyle #100 ea 12/09/24 Lancets) ticagrelor 90 mg tablet (Brilinta) 90 mg PO BID #90 tabs 12/11/24 blood sugar diagnostic (FreeStyle #100 ea 12/13/24 Lite Strips) pregabalin 200 mg capsule 200 mg PO BID #60 caps 12/16/24 folic acid 1 mg tablet 1 mg PO DAILY #90 tabs 12/23/24 hydroxychloroquine 200 mg tablet 200 mg PO DAILY #90 tabs 12/23/24 (Plaquenil) methotrexate sodium 2.5 mg tablet 15 mg (6 x 2.5 mg) PO QWEEK #72 12/23/24 tabs mirtazapine 15 mg tablet 15 mg PO BEDTIME #90 tabs 12/23/24 Allergies Allergy/AdvReac Type Severity Reaction Status Date / Time methylprednisolone Allergy Severe Rash from Verified 02/06/25 10:18 Solu-Medrol shellfish derived Allergy Intermediate Hives Verified 02/06/25 10:18 etanercept [From Enbrel] AdvReac Severe Facial Verified 02/06/25 10:18 Swelling metformin AdvReac Severe Diarrhea Verified 02/06/25 10:18 metronidazole [From FLAGYL] AdvReac Severe Diarrhea Verified 02/06/25 10:18 prednisone AdvReac Intermediate hallucinations, Verified 02/06/25 10:18 more than 20 mg doses Review of Systems 2 Review of Systems: As per HPI Yes all other systems are reviewed and are negative Constitutional: Constitutional: Reports as per HPI [facility] Past Medical History Medical History NSTEMI (non-ST elevated myocardial infarction) GERD (gastroesophageal reflux disease) Diverticulitis large intestine penitentiary (current) use 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 Acute respiratory distress Tendonitis of ankle or foot Cough Stable angina Anxiety CAD (coronary artery disease) HLD (hyperlipidemia) HTN (hypertension) COPD exacerbation Hyperkalemia Atherosclerotic cardiovascular disease Hospital discharge follow-up Colitis CVA (cerebral vascular accident) (~2018) Breast pain, right Rash Bloody diarrhea PAD (peripheral artery disease) Hyperlipidemia LDL goal <100 COPD (chronic obstructive pulmonary disease) Infiltrating ductal carcinoma of left breast, stage 2 Insomnia Dyslipidemia Bipolar 1 disorder, depressed Cough Restrictive airway disease Hypothyroid IDDM (insulin dependent diabetes mellitus) Vitamin D deficiency Osteoporosis Breast cancer Hyperparathyroidism Thyroid nodule T2DM (type 2 diabetes mellitus) Depression Fibromyalgia Seropositive rheumatoid arthritis Reactive airways dysfunction syndrome Allergic rhinitis Irritable bowel Anxiety Bronchial asthma Diabetes type 2, uncontrolled Surgical History S/P laparoscopic colectomy (04/15/24) Hx of sigmoidoscopy History of bronchoscopy Hx of endoscopy H/O cardiac catheterization History of lumpectomy of left breast History of pubovaginal sling History of esophagogastroduodenoscopy (EGD) History of tubal ligation History of colonoscopy History of bunionectomy of both great toes H/O: hysterectomy Family History Family History Mother Diabetes HTN (hypertension) Uterus cancer Malignant tumor of head Breast cancer Father Diabetes HTN (hypertension) CVD (cardiovascular disease) Heart problem Maternal Aunt Breast cancer Brother Myocardial infarction S/P CABG x 4 Family/Other FH: mental illness Family/Other Lung cancer Other Mental health disorder Social History Social History Household Members: Family Household Members Other:: sister Housing: House Are you a primary healthcare network consultant to a significant other at home: No Do you presently have visiting nurse or other home services: No Unable to assess alcohol history related to: Unknown Alcohol intake: never Comment: Low fall Patient Tobacco Use Status: Former Tobacco user Tobacco use type: Cigarette Cigarette Packs Per Day: 0.5 Cigarettes Per Day: 3 Years Smoked: 48 e-Cigarette/Vaping Use: Never Used Second Hand Smoke Exposure: No Substance Use Type: Marijuana Advance Directives: Yes Advance Directives on File: Yes Advance Directives Date on File: 12/22/21 service: No Current occupational status: disabled Current occupation: rt handed Cognitive needs: No Hearing needs: No Vision needs: Yes Physical Exam ED Vital Signs: Vital Signs - 24 hr 02/06/25 10:07 Temperature 98.3 F Pulse Rate 82 Respiratory Rate 20 Blood Pressure 137/84 Pulse Oximetry 98 Oxygen Delivery Method Room Air BMI result Body Mass Index 20.9 Vital signs have been reviewed and appear to be correct. Blood pressure normal. Heart rate normal. Respiratory rate normal. Temperature normal. Oxygen saturation normal. Const General: cooperative, healthy appearing and no acute distress Orientation/consciousness: oriented to person, oriented to place, oriented to time and patient oriented x3 Limitations: no limitations HENFL Head: Yes normocephalic and Yes atraumatic Ears: external ears normal General nose exam: Normal external nose present Face and sinus: Yes face symmetric Mouth: oropharynx normal and moist mucous membranes Throat: Yes uvula midline Eyes Pupils: Equal, round and reactive pupils present Neck Neck: Yes normal visual inspection and Yes supple Resp Effort & Inspection: normal respiratory effort and able to speak in complete sentences Auscultation: clear to auscultation bilaterally Cardio Rate: regular rate Rhythm: regular rhythm Heart sounds: S1 normal heart sound present and S2 normal heart sound present GI Palpation (GI): Soft to palpation and nontender Auscultation: normoactive bowel sounds Other: Exam chaperoned by Rosetta Monroe LPN General: Yes no CVA tenderness External Female Exam: normal external appearance Female genitals images: 2 1. 5mm flesh colored flat papule at 12:00 on anus Back/Spine/Pelvis Back: no CVA tenderness Skin General skin exam: elasticity normal and turgor normal Neuro General: oriented to person, oriented to place, oriented to time, patient oriented x3, moves all extremities, no focal motor deficits and CN's II-XI intact bilaterally Cranial nerves: Yes Equal, round and reactive pupils present Cognition (Neuro): normal cognition Extrem General: Yes full ROM, Yes no pedal edema and Yes no calf tenderness Psych Mental Status: mental status grossly normal Affect: normal affect Thought process: Normal thought process present Medical Decision Making Medical Decision Making [facility] Narrative: Patient is a 64-year-old female with history NSTEMI, HTN, CAD, HLD, GERD, anxiety, bipolar disorder, CVA, PID, COPD, IDDM, hypothyroidism, fibromyalgia presenting to the emergency department with complaint of painful mass to her genital area which she noted yesterday. On exam patient is awake, A+Ox3, VS WNL, afebrile, normal neurological exam without focal deficits, physical exam findings as above. Given reported symptoms and physical exam findings, initial differential includes but is not limited to condylomata acuminata, hemorrhoid, thrombosed hemorrhoid, abscess. Patient also evaluated by Elo Walters PA-C who is in agreement with diagnosis of CA. Will refer patient to surgery to discuss possible removal. Return precautions discussed. Patient verbalized understanding of and agreement with plan. Differential Diagnosis Differential Diagnoses: The differential diagnosis associated with the presentation includes As per [facility] External Record Review External record reviewed: Inpatient record, Office record and Outpatient record Discharge Plan Discharge Clinical Impression: Genital warts Patient Disposition: Home, Self-Care Instructions: Genital Warts (ED) Additional Instructions: Your evaluation in the emergency department today showed evidence of a genital wart. We recommend that you follow up with your general surgeon to discussed possible removal. We recommend that you follow up with your primary care provider as well. Return to the emergency department if you notice increased swelling, drainage, develop fever, or any other new or concerning symptoms. We will call you if your urine shows evidence of infection. Prescriptions: No Action (DME) walker Misc See Rx Instructions .Route Qty: 1 0RF Rx Instructions: with seat Trulicity 1.5 mg/0.5 mL pen injector 1.5 mg subcut TH@0900 Qty: 6 3RF (DME) Shower Chair Misc See Rx Instructions .Route Qty: 1 0RF Rx Instructions: As directed (DME) clamp on tub safety rail See Rx Instructions .Route .MEDSUPPLY Qty: 1 0RF Rx Instructions: As directed (DME) ez heel coverer machine operator bed assist support See Rx Instructions .Route .MEDSUPPLY Qty: 1 0RF Rx Instructions: As directed famotidine 20 mg tablet 20 mg PO BEDTIME 90 Days Qty: 90 1RF aspirin 81 mg tablet,delayed release (DR/EC) 81 mg PO DAILY 90 Days Qty: 90 1RF (DME) lancets [FreeStyle Lancets] 28 gauge misc See Rx Instructions .Route Qty: 100 3RF Rx Instructions: Use 1 lancet once a day Brilinta 90 mg tablet 90 mg PO BID Qty: 90 2RF (DME) FreeStyle Lite Strips Strip MISCELLANEOUS DAILY Qty: 100 1RF Rx Instructions: Use 1 test strip three times a day pregabalin 200 mg capsule 200 mg PO BID Qty: 60 4RF ondansetron 4 mg tablet,disintegrating 4 mg PO Q8H PRN (Reason: nausea and vomiting) Qty: 20 0RF tramadol 50 mg tablet 50 mg PO Q6H PRN (Reason: pain) Qty: 20 0RF xwisgpdppe-uuuxqvgccmauq-zjob 50-325-40 mg tablet 1 tab PO Q6H PRN (Reason: haeadace) Qty: 20 0RF (DME) pen needle, diabetic [Comfort EZ Pen Mineral] 31 gauge x 5/16 needle See Rx Instructions .ROUTE .MEDSUPPLY Qty: 200 11RF Rx Instructions: Use 1 pen needle 6 times a day albuterol sulfate 90 mcg/actuation HFA aerosol inhaler 2 inh inhalation Q4H PRN (Reason: Shortness Of Breath Or Wheezing) (DME) blood pressure monitor Kit See Rx Instructions .Route Qty: 1 0RF Rx Instructions: As directed Trelegy Ellipta 200-62.5-25 mcg blister with device 1 ea inhalation DAILY simethicone 125 mg capsule 125 mg PO DAILY PRN (Reason: gas pain) Qty: 30 0RF pantoprazole 40 mg tablet,delayed release (DR/EC) 40 mg PO DAILY 90 Days Qty: 90 1RF nicotine 14 mg/24 hr patch 24 hour 1 patch topical DAILY metoprolol succinate 25 mg tablet extended release 24 hr 25 mg PO DAILY nicotine (polacrilex) 2 mg gum PO trazodone 50 mg tablet 50 mg PO BEDTIME PRN (Reason: sleep) 90 Days Qty: 90 0RF (DME) blood pressure test kit-medium Kit See Rx Instructions .Route Qty: 1 0RF Rx Instructions: As directed hydroxychloroquine [Plaquenil] 200 mg tablet 200 mg PO DAILY Qty: 90 1RF mirtazapine 15 mg tablet 15 mg PO BEDTIME Qty: 90 1RF methotrexate sodium 2.5 mg tablet 15 mg PO QWEEK Qty: 72 1RF folic acid 1 mg tablet 1 mg PO DAILY Qty: 90 1RF metoclopramide HCl [Reglan] 5 mg tablet 5 mg PO TID PRN (Reason: nausea and vomiting) 30 Days Qty: 90 1RF Rx Instructions: Take 30 min before lunch and dinner and at bedtime Print Language: Brazilian
[2025-02-06 13:17] VITALS: BP 137/84; PULSE 82; RESP 20; TEMP 36.8; O2SAT 98
[2025-02-06 13:19] LABS: Appearance Urine Clear; Color Urine Yellow; Glucose Urine UA Negative (Negative); Leukocyte Esterase Urine Trace (Negative); Nitrite Urine Negative (Negative); PH 6.5 (5.0-9.0); Specific Gravity - Urine 1.025 (1.005-1.025); UMIC TRIGGER UACC YES; Urine Blood Negative (Negative); Urine Ketones Trace mg/dL (Negative); Urine Protein Trace mg/dL (Neg-Trace)
[2025-02-06 13:24] LABS: Bacteria Urine None Seen (None Seen); Hyaline Casts Urine 0-2 /LPF (0-2); RBC Urine 0-2 /HPF (0-2); Squamous Epithelial Cell Urine 0-2 /HPF (0-2); WBC Urine 0-5 /HPF (0-5)
== END 2025-02-06 13:19 | disposition home or self-care (01) ==
PROVIDERS: Emergency Provider Emergency Medicine; PCP Internal Medicine
DX: A63.0 Anogenital (venereal) warts (principal); R10.2 Pelvic and perineal pain
CPT/HCPCS: 81001; 99282

== ENCOUNTER 2025-02-08 09:00 | Outpatient (REF) | payer OTHER, SELFPAY ==
[2025-01-12 13:37] VITALS: BP 96/60; BP 96/66; BMI 22.5
--- NOTE | ~2025-02-08 | CT_ITS ---
CLINICAL HISTORY: M54.6 - Pain in thoracic spine CT lumbar spine without contrast. COMPARISON: XR lumbar spine dated 12/15/24 at 12:16 EST FINDINGS: Normal curvature of the lumbar spine. Vertebral body heights are maintained. Suture material present along the partially visualized distal sigmoid colon. L5-S1: Mild disc space height loss. Facet joint arthrosis. Mild posterior disc bulge. No significant neural foraminal narrowing. L4-L5: Mild posterior disc bulge. Mild right neural foraminal narrowing. L3-L4: Mild posterior disc bulge. No significant neural foraminal narrowing. L2-L3: Intervertebral disc is normal in height. No significant disc bulge or central canal stenosis. L1-L2: Intervertebral disc is normal in height. No significant disc bulge or central canal stenosis. IMPRESSION: 1. No acute osseous or alignment abnormality of the lumbar spine. 2. Mild degenerative changes of the lumbar spine. This document has been electronically signed by: Radames Hernandez MD on 02/09/2025 12:41:12
--- NOTE | ~2025-02-08 | CT_ITS ---
CLINICAL HISTORY: M54.6 - Pain in thoracic spine CT thoracic spine without contrast. COMPARISON: XR thoracic spine dated 12/15/24 at 12:14 EST FINDINGS: Normal curvature of the thoracic spine. No evidence of vertebral body subluxation. Vertebral body heights are maintained. The thoracic disc spaces are preserved. Small anterior marginal osteophytes along the mid to lower thoracic spine. Schmorl's node at the superior endplate of T11. Mild facet joint arthrosis T8-T9, T9-T10 and T10-T11. Coronary artery calcifications and/or stents present within the LAD and circumflex. IMPRESSION: 1. No acute osseous or alignment abnormality of the thoracic spine. 2. Mild degenerative changes of the thoracic spine. This document has been electronically signed by: Radames Hernandez MD on 02/09/2025 12:43:19
--- NOTE | ~2025-02-08 | CT_ITS ---
CLINICAL HISTORY: M54.6 - Pain in thoracic spine CT cervical spine without contrast. COMPARISON: None FINDINGS: Straightening of the normal cervical lordosis. Vertebral body heights are maintained. Skull base and intracranial structures appear normal. Calcified plaque present at the carotid bulbs bilaterally. C2-C3: Facet joint arthrosis on the left. No significant neural foraminal narrowing. C3-C4: No significant neuroforaminal narrowing or spinal canal stenosis. C4-C5: Facet joint arthrosis on the right. No significant neural foraminal narrowing. C5-C6: Anterior marginal osteophytes. Facet joint arthrosis on the right. No significant neural foraminal narrowing. C6-C7: Anterior marginal osteophytes. IMPRESSION: 1. Straightening of the normal cervical lordosis. 2. Mild cervical spondylosis. This document has been electronically signed by: Radames Hernandez MD on 02/09/2025 12:43:55
== END 2025-02-08 09:01 | disposition home or self-care (01) ==
LOC: HO.CT 09:00
PROVIDERS: PCP Internal Medicine; Visit Provider Student in an Organized Health Care Education/Training Program
DX: M54.2 Cervicalgia (principal); M81.0 Age-related osteoporosis without current pathological fracture; M51.369 Other intervertebral disc degeneration, lumbar region without mention of lumbar back pain or lower extremity pain
CPT/HCPCS: 72125; 72128; 72131

== ENCOUNTER → 2025-02-08 09:02 | Outpatient (BNV) | payer OTHER, SELFPAY ==
[2025-01-12 13:37] VITALS: BP 96/60; BP 96/66; BMI 22.5
== END ==
PROVIDERS: PCP Internal Medicine; Visit Provider Radiology Diagnostic Radiology
DX: M47.892 Other spondylosis, cervical region (principal); M54.50 Low back pain, unspecified; M54.6 Pain in thoracic spine
CPT/HCPCS: 72125; 72128; 72131

== ENCOUNTER 2025-02-09 15:20 | Outpatient (AMB) | payer OTHER, SELFPAY ==
[2025-01-12 13:37] VITALS: BP 96/60; BP 96/66; BMI 22.5
--- NOTE | 2025-02-09 15:43 | A.OFFPSYCH_ITS ---
Intake Intake Visit Reasons: consultation Riveter Required: No Allergies methylprednisolone Allergy (Severe, Verified 03/01/25 08:58) Rash from Solu-Medrol shellfish derived Allergy (Intermediate, Verified 03/01/25 08:58) Hives etanercept [From Enbrel] Adverse Reaction (Severe, Verified 03/01/25 08:58) Facial Swelling metformin Adverse Reaction (Severe, Verified 03/01/25 08:58) Diarrhea metronidazole [From FLAGYL] Adverse Reaction (Severe, Verified 03/01/25 08:58) Diarrhea prednisone Adverse Reaction (Intermediate, Verified 03/01/25 08:58) hallucinations, more than 20 mg doses Medication List - Last Reconciled 02/09/25 by Alicia Yarbrough APRN albuterol sulfate 90 mcg/actuation 2 inhalations inhalation Q4H PRN aspirin 81 mg PO DAILY 90 days blood pressure monitor As directed blood pressure test kit-medium As directed blood sugar diagnostic (FreeStyle Lite Strips) Use 1 test strip three times a day kvcsoiyjpd-ggygnrgqftzvc-icup 50-325-40 mg 1 tab PO Q6H PRN [clamp on tub safety rail As directed] dulaglutide (Trulicity) 1.5 mg (0.5 mL) subcut TH@0900 [ez felling machine operator bed assist support As directed] famotidine 20 mg PO BEDTIME 90 days ojjcfbjcxhn-mejcsbftq-vvfqkfgd 200-62.5-25 mcg (Trelegy Ellipta) 1 ea inhalation DAILY folic acid 1 mg PO DAILY hydroxychloroquine (Plaquenil) 200 mg PO DAILY lancets (FreeStyle Lancets) Use 1 lancet once a day methotrexate sodium 15 mg (6 x 2.5 mg) PO QWEEK metoclopramide HCl (Reglan) 5 mg PO TID PRN 30 days metoprolol succinate ER 25 mg PO DAILY ondansetron 4 mg PO Q8H PRN pantoprazole 40 mg PO DAILY 90 days pen needle, diabetic (Comfort EZ Pen [place]) Use 1 pen needle 6 times a day pregabalin 200 mg PO BID Shower Chair As directed simethicone 125 mg PO DAILY PRN ticagrelor (Brilinta) 90 mg PO BID tramadol 50 mg PO Q6H PRN trazodone 100 mg PO BEDTIME trazodone 50 mg PO BEDTIME PRN 90 days walker with seat HPI- Psychiatric Chief Complaint: consultation HPI Narrative: Pt is a medically complicated 64-year-old female referred by her PCP for evaluation of depression and medication recommendations. Pt has chronic back pain and headache following her discharge from the hospital for a STEMI in October 2024. Pt has history of Bipolar Disorder. She has diabetes mellitus type 2 with an A1c of 6.3% today which is well controlled. Has hypertension stable. Her COPD and reactive airway dysfunction syndrome is follow by pulmonology. Seropositive rheumatoid arthritis is follow by Rheumatology. History of left breast cancer and completed letrozole treatment. She is here for consult re: depression symptoms. she reports pain from fibromyalgia effects mood and sleep. She feels lonely frequently. PHQ9=20 and GAD7= 24 she reports symptoms are somewhat difficult. She has been tried on a number of medications in past and did not like the side effects. she has cardiology follow up tomorrow. lithium inpast helpful but risk due to diabetes depakote = sedation gabapentin= cymbalta = tics lamictal =not sure remeron= not helpful for sleep sonata = sleep not helpful zoloft= dont recqll side effects Past Psychiatric History: one IPLOC years ago at ; was at [facility] for 3 years in past Subjective Subjective Subjective Medication Compliance: Yes Side effects from medications: No Review of Systems Medical Review of Systems: unchanged Mental Status Exam Mental Status Exam Patient Appearance: Appropriate Patient Orientation: Person, Place, Time and Situation Level of Consciousness: Awake and Appropriate Patient Behavior: Appropriate Mood Description: Depressed Affect Description: Flat Patient Cognition Impaired: No Ability to Follow Directions: Good Speech Pattern: Clear Memory Description: Intact Hallucinations: None Delusions: Not Present Thought Process: Intact Thought Content: positive for Intact Judgement: Fair Assessment and Plan Assessment & Plan (1) Hypothyroid: Status: Acute Qualifiers: Hypothyroidism type: unspecified Qualified Code(s): E03.9 - Hypothyroidism, unspecified Code(s): E03.9 - Hypothyroidism, unspecified (2) Bipolar 1 disorder, depressed: Status: Acute Code(s): F31.9 - Bipolar disorder, unspecified Plan add melatonin 1 mg at bedtime continue trazodone labs ordered consider low dose lithium consider very low dose ritalin 2.5mg bid for depression off label strongly encourage psychotherapy Medications: New melatonin 1 mg PO BEDTIME 90 tabs 0RF sleep Orders: Orders TSH reflex Free T4 02/09/25 E03.9 - Hypothyroidism, unspecified Counseling and coordination of Care Pt. Self Management counseling: Maintenance-social rhythm, Mod caffeine/ETOH intake, Nutrition education and improvement and Sleep hygiene Medication management counseling: Effectiveness, Side effects, Dosing range, Duration, Drug interaction and Adherence Diagnosis and Prognosis Counseling: Accuracy of diagnosis, Prognosis over time, Impact of diagnosis on life functions, Problematic behaviors secondary to diagnosis and Adequacy of current interventions Details: I spent 70 minutes reviewing the record, seeing the patient and documenting in the medical record. Counseling provided to the patient/caregiver as outlined below. Addressed patient/caregiver concerns regarding current medication regime including effective adherence. Addressed patient/caregiver concerns regarding diagnosis and prognosis including accuracy of diagnosis, prognosis over time, impact of diagnosis. Addressed patient/caregiver concerns regarding impact of recent stressors. 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 Acute respiratory distress Tendonitis of ankle or foot Cough Stable angina Anxiety HLD (hyperlipidemia) HTN (hypertension) COPD exacerbation Hyperkalemia Atherosclerotic cardiovascular disease Hospital discharge follow-up Colitis CVA (cerebral vascular accident) (~2018) Breast pain, right Rash Bloody diarrhea PAD (peripheral artery disease) Hyperlipidemia LDL goal <100 COPD (chronic obstructive pulmonary disease) Infiltrating ductal carcinoma of left breast, stage 2 Insomnia Dyslipidemia Bipolar 1 disorder, depressed Cough Restrictive airway disease Hypothyroid IDDM (insulin dependent diabetes mellitus) Vitamin D deficiency Osteoporosis Breast cancer Hyperparathyroidism Thyroid nodule T2DM (type 2 diabetes mellitus) Depression Fibromyalgia Seropositive rheumatoid arthritis Reactive airways dysfunction syndrome Allergic rhinitis Irritable bowel Anxiety Bronchial asthma Diabetes type 2, uncontrolled Surgical History S/P laparoscopic colectomy (04/15/24) Hx of sigmoidoscopy History of bronchoscopy Hx of endoscopy H/O cardiac catheterization History of lumpectomy of left breast History of pubovaginal sling History of esophagogastroduodenoscopy (EGD) History of tubal ligation History of colonoscopy History of bunionectomy of both great toes H/O: hysterectomy Family History Mother Diabetes HTN (hypertension) Uterus cancer Malignant tumor of head Breast cancer Father Diabetes HTN (hypertension) CVD (cardiovascular disease) Heart problem Maternal Aunt Breast cancer Brother Myocardial infarction S/P CABG x 4 Family/Other FH: mental illness Family/Other Lung cancer Other Mental health disorder Social History Household Members: Family Household Members Other:: sister Housing: House Are you a primary rn coronary care unit to a significant other at home: No Do you presently have visiting nurse or other home services: No Unable to assess alcohol history related to: Unknown Alcohol intake: never Comment: Low fall Patient Tobacco Use Status: Former Tobacco user Tobacco use type: Cigarette Cigarette Packs Per Day: 0.5 Cigarettes Per Day: 3 Years Smoked: 48 e-Cigarette/Vaping Use: Never Used Second Hand Smoke Exposure: No Substance Use Type: Marijuana Advance Directives Date on File: 12/22/21 service: No Current occupational status: disabled Current occupation: rt handed Cognitive needs: No Hearing needs: No Vision needs: Yes Social History: lives with sister, 2 nephews and 1 son and nephew and his 9 month old son Substance History: none known Coding Level of Care Code Psych Diag Eval w/Med (75925) Diagnoses Hypothyroidism, unspecified type E03.9 Hypothyroidism type: unspecified Bipolar 1 disorder, depressed F31.9
== END 2025-02-09 16:25 | disposition home or self-care (01) ==
LOC: HO.HOP 15:20
PROVIDERS: PCP Internal Medicine; Visit Provider Clinical Nurse Specialist Psychiatric/Mental Health
DX: F31.32 Bipolar disorder, current episode depressed, moderate (principal); E03.9 Hypothyroidism, unspecified
CPT/HCPCS: 90792

== ENCOUNTER → 2025-02-09 15:20 | Outpatient (BNVA) | payer OTHER, SELFPAY ==
[2025-01-12 13:37] VITALS: BP 96/60; BP 96/66; BMI 22.5
== END ==
PROVIDERS: PCP Internal Medicine; Visit Provider Clinical Nurse Specialist Psychiatric/Mental Health
DX: E03.9 Hypothyroidism, unspecified (principal); F31.9 Bipolar disorder, unspecified
CPT/HCPCS: 90792

== ENCOUNTER 2025-02-10 15:17 | Outpatient (AMB) | payer OTHER, SELFPAY ==
[2025-01-12 13:37] VITALS: BP 96/60; BP 96/66; BMI 22.5
--- NOTE | 2025-02-10 15:42 | A.OFFVIS_ITS ---
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 Accompanied by: Self / Same As Patient Allergies methylprednisolone Allergy (Severe, Verified 02/06/25 10:18) Rash from Solu-Medrol shellfish derived Allergy (Intermediate, Verified 02/06/25 10:18) Hives etanercept [From Enbrel] Adverse Reaction (Severe, Verified 02/06/25 10:18) Facial Swelling metformin Adverse Reaction (Severe, Verified 02/06/25 10:18) Diarrhea metronidazole [From FLAGYL] Adverse Reaction (Severe, Verified 02/06/25 10:18) Diarrhea prednisone Adverse Reaction (Intermediate, Verified 02/06/25 10:18) hallucinations, more than 20 mg doses Medication List - Last Reconciled 02/10/25 by Joseph Salmon MD albuterol sulfate 90 mcg/actuation 2 inhalations inhalation Q4H PRN aspirin 81 mg PO DAILY 90 days blood pressure monitor As directed blood pressure test kit-medium As directed blood sugar diagnostic (FreeStyle Lite Strips) Use 1 test strip three times a day szjksexepw-midrakflgpluf-jlnx 50-325-40 mg 1 tab PO Q6H PRN [clamp on tub safety rail As directed] clopidogrel 75 mg PO DAILY dulaglutide (Trulicity) 1.5 mg (0.5 mL) subcut TH@0900 [ez ten pin bowling centre manager bed assist support As directed] famotidine 20 mg PO BEDTIME 90 days tyysdsekfan-ijblwkaoq-itqkmhfb 200-62.5-25 mcg (Trelegy Ellipta) 1 ea inhalation DAILY folic acid 1 mg PO DAILY hydroxychloroquine (Plaquenil) 200 mg PO DAILY lancets (FreeStyle Lancets) Use 1 lancet once a day melatonin 1 mg PO BEDTIME methotrexate sodium 15 mg (6 x 2.5 mg) PO QWEEK metoclopramide HCl (Reglan) 5 mg PO TID PRN 30 days metoprolol succinate ER 25 mg PO DAILY ondansetron 4 mg PO Q8H PRN pantoprazole 40 mg PO DAILY 90 days pen needle, diabetic (Comfort EZ Pen [place]) Use 1 pen needle 6 times a day pregabalin 200 mg PO BID Shower Chair As directed simethicone 125 mg PO DAILY PRN tramadol 50 mg PO Q6H PRN trazodone 100 mg PO BEDTIME trazodone 50 mg PO BEDTIME PRN 90 days walker with seat HPI Comments Details: 64-year-old female who has known history of coronary disease with previous PCI to left circumflex artery in December 2021, hypertension, hyperlipidemia, type 2 diabetes, COPD and fibromyalgia. She is returning for follow-up. She was seen last time with chest discomfort. There was some dyspnea on exertion also. She underwent stress echocardiogram which she was able to exercise to 7 metabolic equivalents without any EKG changes or wall motion abnormalities. 11/2022: Unfortunately had influenza in October and is recovering from that. Still having significant shortness of breath and continues to have mild wheezes. She just finished her prednisone taper yesterday. She is having upper abdominal pain. Denying any chest discomfort on follow-up. No peripheral edema. No obvious signs of heart failure. 06/10/23: She returns for follow-up. She is saying she has been experiencing significant shortness of breath and has been using the inhaler and nebulizers quite frequently. She also had some chest pain and went to emergency department and was ruled out. She has stress testing recently which was normal. She is saying that depending on whether her breathing changes. If it is humid and hot outside she gets really out of breath. She is still smoking 2 cigarettes per day. Overall from cardiovascular point of view she has stable angina and mostly has shortness of breath due to COPD. 09/23/23: She returns for follow-up. She underwent stress testing where she had hypotensive response to exercise. She was taken for cardiac catheterization which revealed stable disease with no significant LAD or RCA stenosis. Her previous circumflex stents were patent. She returns for follow-up and continues to smoke. She continues to have some sharp non anginal chest pains. She is following with pulmonology for COPD. She was on Wellbutrin which was stopped because she had history of seizures. We discussed about starting Chantix and she is agreeable. 01/27/2024: She returns for follow-up. She could not tolerate Chantix. She is still trying and is currently on 1 cigarette per day. She has Crohn's disease and has significant GI issues and unable to eat and drink well. She has been noticed to be tachycardic and and is saying that she is unable to eat and drink well. She will discuss this with GI. She also has left ankle pain and some burning sensation on the left calf. She also has a bandlike burning sensation in the thoracic region radiating to the front. No rashes noted by her. She has questions that are her symptoms due to amyloidosis as she has Googled her symptoms. She was reassured. 06/03/24: She is here for follow-up. She has restarted smoking unfortunately. Blood pressure control is good. Getting some reproducible left-sided chest pains off and on. She is asking whether she can have a lipid panel done. 09/21/24: Repeat cholesterol testing in 06/06/2024 showing total cholesterol 190, LDL 108, HDL 35 and triglycerides 239. After circumflex PCI she was started on statins but it appears she had GI upset after starting cardiovascular medicines and stopped taking the statins. She has not restarted statins since then. She was given lisinopril on last visit because blood pressure was elevated but is saying that she had nausea and GI upset and stopped taking lisinopril. Continues to smoke at this stage. We discussed about smoking cessation. 11/04/24: She is here for f/u. She had CP early october and [place] [facility]. She was noted to have severe ISR and underwent PCI to OM2. She has been on ASA and Brilinta. She has stopped smoking since she had CT. Blood pressure well controlled. 02/10/2025: She is here for follow-up. She is complaining of some dyspnea at nighttime when she takes Brilinta. She has been taking Brilinta only once a day and she is saying that the script said so. No chest pain or other shortness of breath during the day. Dyspnea the way she is describing he is a side effect of Brilinta. 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 Acute respiratory distress Tendonitis of ankle or foot Cough Stable angina Anxiety HLD (hyperlipidemia) HTN (hypertension) COPD exacerbation Hyperkalemia Atherosclerotic cardiovascular disease Hospital discharge follow-up Colitis CVA (cerebral vascular accident) (~2018) Breast pain, right Rash Bloody diarrhea PAD (peripheral artery disease) Hyperlipidemia LDL goal <100 COPD (chronic obstructive pulmonary disease) Infiltrating ductal carcinoma of left breast, stage 2 Insomnia Dyslipidemia Bipolar 1 disorder, depressed Cough Restrictive airway disease Hypothyroid IDDM (insulin dependent diabetes mellitus) Vitamin D deficiency Osteoporosis Breast cancer Hyperparathyroidism Thyroid nodule T2DM (type 2 diabetes mellitus) Depression Fibromyalgia Seropositive rheumatoid arthritis Reactive airways dysfunction syndrome Allergic rhinitis Irritable bowel Anxiety Bronchial asthma Diabetes type 2, uncontrolled Surgical History S/P laparoscopic colectomy (04/15/24) Hx of sigmoidoscopy History of bronchoscopy Hx of endoscopy H/O cardiac catheterization History of lumpectomy of left breast History of pubovaginal sling History of esophagogastroduodenoscopy (EGD) History of tubal ligation History of colonoscopy History of bunionectomy of both great toes H/O: hysterectomy Family History Mother Diabetes HTN (hypertension) Uterus cancer Malignant tumor of head Breast cancer Father Diabetes HTN (hypertension) CVD (cardiovascular disease) Heart problem Maternal Aunt Breast cancer Brother Myocardial infarction S/P CABG x 4 Family/Other FH: mental illness Family/Other Lung cancer Other Mental health disorder Social History Household Members: Family Household Members Other:: sister Housing: House Are you a primary care transitions manager to a significant other at home: No Do you presently have visiting nurse or other home services: No Unable to assess alcohol history related to: Unknown Alcohol intake: never Comment: Low fall Patient Tobacco Use Status: Former Tobacco user Tobacco use type: Cigarette Cigarette Packs Per Day: 0.5 Cigarettes Per Day: 3 Years Smoked: 48 e-Cigarette/Vaping Use: Never Used Second Hand Smoke Exposure: No Substance Use Type: Marijuana Advance Directives Date on File: 12/22/21 service: No Current occupational status: disabled Current occupation: rt handed Cognitive needs: No Hearing needs: No Vision needs: Yes Review of Systems Const Denies chills, Denies fatigue, Denies fever(s), Denies frequent falls, Denies weakness, Denies weight gain and Denies weight loss ENT Denies dizziness Card Denies chest pain, Denies leg edema, Denies lightheadedness, Denies palpitations, Denies dyspnea and Denies dyspnea on exertion Resp Denies cough, Denies dyspnea and Denies dyspnea on exertion GI Denies hematochezia Musc Denies abnormal gait, Denies muscle weakness, Denies numbness, Denies radiating pain into limb and Denies tingling Neuro Denies abnormal gait, Denies dizziness, Denies frequent falls, Denies numbness, Denies tingling and Denies weakness Endo Denies fatigue and Denies palpitations Physical Exam Vital Signs: Last Vital Signs Pulse 84 02/10/25 15:45 BP 110/72 02/10/25 15:45 BMI result Body Mass Index 22.4 GENERAL APPEARANCE: in no acute distress, pleasant. NECK: no carotid bruit, no jugular venous distention. SKIN: no suspicious lesions, warm and dry. HEART: no murmurs, regular rate and rhythm. LUNGS: Lungs clear to auscultation. ABDOMEN: soft. EXTREMITIES: no edema. PERIPHERAL PULSES: equal. NEUROLOGIC: No gross deficits, AAO X 3 Office Procedures EKG Details: Normal sinus rhythm, normal ECG, QTC 439 milliseconds [id number], Complete Assessment & Plan Assessment & Plan (1) HTN (hypertension): Code(s): I10 - Essential (primary) hypertension Category: Medical Qualifiers: Hypertension type: primary hypertension Qualified Code(s): I10 - Essential (primary) hypertension (2) CAD (coronary artery disease): Code(s): I25.10 - Atherosclerotic heart disease of [place] coronary artery without angina pectoris Category: Medical Plan 64 year female who is here for follow-up. She recently had acute coronary syndrome and was treated with drug-eluting stent. She has been taking Brilinta once a day only. I have explained to her the Brilinta was supposed to be twice a day. We will look into this more as she will call us with the script that she received from [facility]. She is getting side effects so Brilinta and I have advised her that she should be taking Plavix instead. She will picker tender Plavix today and will take 4 tablets today which will be 300 mg load. From tomorrow she will take 75 mg daily along with baby aspirin. Follow-up in few months. Thank you for allowing me to participate in the care of your patient. Please feel free to contact me if you have any questions. Medications: New clopidogrel Take 4 tablets on first day then 1 tablet daily. 75 mg PO DAILY 100 tabs 4RF Discontinued ticagrelor (Brilinta) Discontinued Reason: Stopped on Transfer 90 mg PO BID 90 tabs 2RF Coding Level of Care Code Est Pt Level 4 (27926) Complex EM visit Add On G2211 Diagnoses Primary hypertension I10 Hypertension type: primary hypertension CAD (coronary artery disease) I25.10 CPT Codes EKG - CPT: 02646-Ugbgnrhbnokwmkegk, Complete ([id number])
[2025-02-10 15:45] VITALS: BP 110/72; PULSE 84; BMI 22.4
--- OUTSIDE RECORDS SUMMARY | 2025-02-10 18:20 | XMS_ITS | Clinical Summary ---
Author Organization [facility] Address [address] [place] [address] Phone Care Team Providers Care Tug Hand Name Role Phone Adela Gipson MD Primary Care Provider [phone] Allergies Active Allergy Reactions Criticality Noted Date [...] Visit [facility] [address] [place] [place] [id number] Alexi Warren MD [address] [address] Health Maintenance Due Date Last Done Comments [...] Most Recently Relevant to Health Maintenance Insurance [facility] [place] [id number] Care Teams Tug Hand Relationship Specialty Start Date End Date Adela Gipson MD [address] [place], [place] PCP - General Internal Medicine 05/28/22
--- OUTSIDE RECORDS SUMMARY | 2025-02-10 18:20 | XMS_ITS | Clinical Summary ---
Author Organization [facility] Address [address] [place] [address] Phone Care Team Providers Care Gatehouse Attendant Name Role Phone Adela Wasserman MD Primary Care Provider [phone] Social History Tobacco Use Types Packs/Day Years [...] ID:[id number] Group ID:[id number] Type:Not on file Address: [place] [address] [place] [id number] Care Teams Gatehouse Attendant Relationship Specialty Start Date End Date Adela Wasserman MD [address] [place] [address] , [address] [facility] D[facility]A: [facility] [place], [place] PCP - General Internal Medicine 12/08/24
== END 2025-02-10 16:00 | disposition home or self-care (01) ==
LOC: HO.HCS 15:18
PROVIDERS: PCP Internal Medicine; Visit Provider Internal Medicine Cardiovascular Disease
DX: I10 Essential (primary) hypertension (principal); I25.10 Atherosclerotic heart disease of native coronary artery without angina pectoris
CPT/HCPCS: 99214; G2211

== ENCOUNTER → 2025-02-10 15:17 | Outpatient (BNVA) | payer OTHER, SELFPAY ==
[2025-01-12 13:37] VITALS: BP 96/60; BP 96/66; BMI 22.5
== END ==
PROVIDERS: PCP Internal Medicine; Visit Provider Internal Medicine Cardiovascular Disease
DX: I25.10 Atherosclerotic heart disease of native coronary artery without angina pectoris (principal); I10 Essential (primary) hypertension
CPT/HCPCS: 99212

== ENCOUNTER 2025-02-19 08:48 | Outpatient (AMB) | payer OTHER, SELFPAY ==
[2025-01-12 13:37] VITALS: BP 96/60; BP 96/66; BMI 22.5
--- NOTE | 2025-02-19 08:56 | MHC.OFFVIS ---
Vital Signs 02/19/25 09:01 Height 4 ft 10 in Weight 194 lb BMI 40.5 BP 153/67 H Blood Pressure Location Lt brachial Position Sitting Pulse 44 L Intake Visit Reasons: Breast exam, 1 year follow up Intake Note: Patient is seen in office for yearly breast exam. Pt c/o: denies any concerns regarding the breast mm:11/25/24 Wholesale Buyer Required: No Packing And Shipping Clerk: Packing And Shipping Clerk Present Accompanied by: Self / Same As Patient Allergies methylprednisolone Allergy (Severe, Verified 02/19/25 09:01) Rash from Solu-Medrol shellfish derived Allergy (Intermediate, Verified 02/19/25 09:01) Hives etanercept [From Enbrel] Adverse Reaction (Severe, Verified 02/19/25 09:01) Facial Swelling metformin Adverse Reaction (Severe, Verified 02/19/25 09:01) Diarrhea metronidazole [From FLAGYL] Adverse Reaction (Severe, Verified 02/19/25 09:01) Diarrhea prednisone Adverse Reaction (Intermediate, Verified 02/19/25 09:01) hallucinations, more than 20 mg doses HPI Comments Details: 64-year-old female patient, former patient of Dr. Urbano presenting for a left breast cancer follow-up examination. She was diagnosed with infiltrating ductal carcinoma, ER/FL positive, HER2 Kamille negative in 2019. She underwent a left breast lumpectomy with needle localization and sentinel node biopsy left axilla on 11/26/2018. Pathology revealed a 0.9 cm grade 2 infiltrating ductal carcinoma, ER/FL positive, HER2 Kamille negative. One axillary sentinel node was excised in benign ([id number]). She completed radiation therapy and is currently on letrozole per Dr. Gaitan. She reports bilateral breast pain especially in the right side but denies any palpable lump on either side. She has a previous history of lymphedema which was treated with massage therapy and lymphedema sleeve. She feels that this is much improved. Her most recent mammogram dated 11/25/2024 revealed no mammographic evidence of malignancy (BI-RADS 2). She was recently evaluated in the emergency department and thought to have an anal wart which she would like to have examined. She denies any pain or bleeding from the site. [facility] Medical History CAD (coronary artery disease) NSTEMI (non-ST elevated myocardial infarction) GERD (gastroesophageal reflux disease) Diverticulitis large intestine nursing home (current) use 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 Acute respiratory distress Tendonitis of ankle or foot Cough Stable angina Anxiety HLD (hyperlipidemia) HTN (hypertension) COPD exacerbation Hyperkalemia Atherosclerotic cardiovascular disease Hospital discharge follow-up Colitis CVA (cerebral vascular accident) (~2018) Breast pain, right Rash Bloody diarrhea PAD (peripheral artery disease) Hyperlipidemia LDL goal <100 COPD (chronic obstructive pulmonary disease) Infiltrating ductal carcinoma of left breast, stage 2 Insomnia Dyslipidemia Bipolar 1 disorder, depressed Cough Restrictive airway disease Hypothyroid IDDM (insulin dependent diabetes mellitus) Vitamin D deficiency Osteoporosis Breast cancer Hyperparathyroidism Thyroid nodule T2DM (type 2 diabetes mellitus) Depression Fibromyalgia Seropositive rheumatoid arthritis Reactive airways dysfunction syndrome Allergic rhinitis Irritable bowel Anxiety Bronchial asthma Diabetes type 2, uncontrolled Surgical History S/P laparoscopic colectomy (04/15/24) Hx of sigmoidoscopy History of bronchoscopy Hx of endoscopy H/O cardiac catheterization History of lumpectomy of left breast History of pubovaginal sling History of esophagogastroduodenoscopy (EGD) History of tubal ligation History of colonoscopy History of bunionectomy of both great toes H/O: hysterectomy Family History Mother Diabetes HTN (hypertension) Uterus cancer Malignant tumor of head Breast cancer Father Diabetes HTN (hypertension) CVD (cardiovascular disease) Heart problem Maternal Aunt Breast cancer Brother Myocardial infarction S/P CABG x 4 Family/Other FH: mental illness Family/Other Lung cancer Other Mental health disorder Social History Household Members: Family Household Members Other:: sister Housing: House Are you a primary childcare provider to a significant other at home: No Do you presently have visiting nurse or other home services: No Unable to assess alcohol history related to: Unknown Alcohol intake: never Comment: Low fall Patient Tobacco Use Status: Former Tobacco user Tobacco use type: Cigarette Cigarette Packs Per Day: 0.5 Cigarettes Per Day: 3 Years Smoked: 48 e-Cigarette/Vaping Use: Never Used Second Hand Smoke Exposure: No Substance Use Type: Marijuana Advance Directives Date on File: 12/22/21 service: No Current occupational status: disabled Current occupation: rt handed Cognitive needs: No Hearing needs: No Vision needs: Yes Review of Systems Const All systems reviewed & are unremarkable except as noted in HPI and below Physical Exam Const General: healthy appearing, well developed and alert Nutritional Appearance: well nourished Orientation/consciousness: patient oriented x3 Limitations: no limitations Neck Neck: Yes no lymphadenopathy Chest Other: Left breast: No skin change, no nipple retraction, no nipple discharge, no palpable mass, no enlarged lymph nodes, breast tenderness Right breast: No skin change, no nipple retraction, no nipple discharge, no palpable mass, no enlarged lymph nodes, breast tenderness GI Other: Anal exam reveals a small skin tag in the anterior left perianal skin. No wart is identified. Skin General skin exam: no rashes or lesions noted Neuro General: patient oriented x3 Extrem General: Yes no clubbing, cyanosis or edema Assessment & Plan Assessment & Plan (1) Infiltrating ductal carcinoma of left breast, stage 2: Code(s): C50.912 - Malignant neoplasm of unspecified site of left female breast Category: Medical Plan 64-year-old female patient presenting with a previous history of left breast lumpectomy with needle localization, sentinel node biopsy on 11/26/2018 for a 0.9 cm grade 2 infiltrating ductal carcinoma with 1 axillary lymph node negative for malignancy. In general she feels well and denies any ongoing breast symptoms. Her most recent mammogram of 11/25/2024 revealed no mammographic evidence of malignancy (BI-RADS 2). Examination today reveals no suspicious findings in either breast. There is mild tenderness in bilateral breasts. I recommended a follow-up examination in 1 year, sooner PRN. Anal examination reveals some mild skin tags with no evidence of a anal wart. No surgical intervention is recommended. Coding Level of Care Code Est Pt Level 3 (85194) Diagnoses Infiltrating ductal carcinoma of left breast, stage 2 C50.912
[2025-02-19 09:01] VITALS: BP 153/67; PULSE 44; BMI 40.5
--- OUTSIDE RECORDS SUMMARY | 2025-02-19 09:19 | XMS_ITS | Data Portability ---
Author Organization [employer] Address [address] [place] [address] Care Team Providers Care Dog Day Care Attendant Name Role Phone HIM CCA Primary Care Provider [phone] Assessment Encounter Date Assessment Date Assessment LastModified by Organization Details LastModified Time 03/27/2024 03/27/2024 I provided real -time medical direction via phone for this encounter, and was available for additional phone based assistance as needed. I have reviewed and agree with the Assessment and Plan as documented by the Charger. We discussed the diagnostic uncertainty of home [...] for evaluation and management. Report called to [facility] ER [email or web address] Not available 03/27/2024 13:41:34 Plan of Treatment [...] 03/27/2024 6 RxNorm Radha Fernández MD [address] [facility],[address], [place], [address] [facility] [employer] 13:34:28 Medications Name Sig Start Date Stop [...] 4 114 /min 20 /min 121.92 cm 48853 g 94 % 94 % 98.8 [degF] [...] SNOMED-CT Code Diagnosis ICD10 Code Diagnosis Note [id number] Radha Fernández MD Main - [address] [address] 03/27/2024 13:23:51 03/29/2024 11:48:16 Diverticulitis 848823612 K57.92 Health Concerns Section Related Observation LastModified by Organization Detai ls LastModified Time None Recorded Concern Status LastModified by Organization Details LastModified Time None Recorded Advance Directives Directive None Recorded Payers Encounter Date Sequence Insurance Name Policy Number Policy Charles Covered Member ID Charles Member ID Guarantor Name 03/27/2024 1 [facility] - DOS ON OR AFTER 2023 - DUAL ELIGIBLE - SHELTER OPTIONS AND ONE CARE (MEDICARE REPLACEMENT/ADV ANTAGE - HMO) Sosa Joiner [id number] Sosa Joiner Notes Date Note Type Note [...] was seen in the ER 03/25 at [facility] -CT attached. She has been complaining of a frontal headache -CT head and neck were negative for acute disease in the ER -she is complaining of severe abdominal pain Charger POC Test Results from Amy Montana - [facility] Blood Glucose Measurement (1) [14:39] Blood Glucose: 149 mg/dL .................... .................... .................... .................... .................... .................... .................... . Charger Note From Amy Montana: Sent to a [...] CT scans performed (results uploaded to [facility]) at [place] ED on 03/25 and prescribed Levofloxacin 500mg [...] narcotics for pain during flares. [facility]. Pt declines [facility] access/venous blood draw, stating she would prefer to go to ED. [facility] consulted and orders BG as pt does not check BG regularly. Pt states she usually uses CGM, but ran out, and hasn't used glucometer for over 1 week. B; [facility] calls report to [facility] ED. 911 contacted and pt care transferred to [facility] crew. Pt transported to [facility] ED via [place]. .................... .................... .................... .................... .................... .................... .................... . Disposition: Fulfilled Radha Fernández MD [address] [facility],[address], [place], [address], [employer] - [employer] TOLBERT 03/27/2024 14:55:37 OBGyn Episode No OBEpisode recorded.
--- OUTSIDE RECORDS SUMMARY | 2025-02-19 09:19 | XMS_ITS | Clinical Summary ---
Author Organization [facility] Address [address] [place] [address] Phone Care Team Providers Care Conductor Road Freight Name Role Phone Adela Gipson MD Primary Care Provider [phone] Allergies Active Allergy Reactions Criticality Noted Date [...] Visit [facility] [address] [place] [address] Alexi Warren MD [address] [address] Health Maintenance Due Date Last Done Comments [...] Diabetes: Hemoglobin A1C 08/24/2022 05/24/2022 Influenza Vaccine (Season Ended) 2025 Hepatitis B Vaccine Aged Out No longe [...] Most Recently Relevant to Health Maintenance Insurance [facility] [place] [id number] Freight Relationship Specialty Start Date End Date Adela Gipson MD [address] [place], [place] PCP - General Internal Medicine 05/28/22
--- OUTSIDE RECORDS SUMMARY | 2025-02-19 09:19 | XMS_ITS | Clinical Summary ---
Author Organization [facility] 20:20 [facility] Address [address] [place] [address] Phone Care Team Providers Care Parts Processor Name Role Phone Adela Wasserman MD Primary Care Provider [phone] Social History Tobacco Use Types Packs/Day Years [...] Annual BMP Blood Test 12/13/2024 RSV Immunization Adult Patie nts (1 - 1-dose 75+ series) 2037 HIB [...] patient's age to complete this topic Insurance MEDICARE Member Subscriber Plan / Payer (Ef fective 2023-Present) Name:Sosa Joiner Relation to Subscriber:Self Name:Sosa Joiner Payer ID:[id number] Group ID:[id number] Type:Not on file Address: [place] [address] [place] [id number] Care Teams Parts Processor Relationship Specialty Start Date End Date Adela Wasserman MD [address] [place] [address] , [address] [facility] D/B/A: [facility] [place], [place] PCP - General Internal Medicine 12/08/24
== END 2025-02-19 09:14 | disposition home or self-care (01) ==
LOC: HO.HGS 08:49
PROVIDERS: PCP Internal Medicine; Visit Provider Surgery
DX: C50.912 Malignant neoplasm of unspecified site of left female breast (principal)
CPT/HCPCS: 99213

== ENCOUNTER → 2025-02-19 08:48 | Outpatient (BNVA) | payer OTHER, SELFPAY ==
[2025-01-12 13:37] VITALS: BP 96/60; BP 96/66; BMI 22.5
== END ==
PROVIDERS: PCP Internal Medicine; Visit Provider Surgery
DX: C50.912 Malignant neoplasm of unspecified site of left female breast (principal); Z79.811 Long term (current) use of aromatase inhibitors; Z92.3 Personal history of irradiation
CPT/HCPCS: 99212

== ENCOUNTER 2025-02-21 06:48 | Emergency (ER) | payer OTHER, SELFPAY ==
[2025-01-12 13:37] VITALS: BP 96/60; BP 96/66; BMI 22.5
--- NOTE | ~2025-02-21 | XR_ITS ---
CLINICAL HISTORY: FELL OOB, INJURED R WRIST 4 view right wrist Comparison: None Findings: There is a dorsal triquetral fracture. No significant loss of joint space, osteophyte, or erosions. No radiopaque foreign body. IMPRESSION: 1. Dorsal triquetral fracture This document has been electronically signed by: Carlos Felipe MD on 02/21/2025 07:37:40
[2025-02-21 06:53] VITALS: BP 113/78; PULSE 85; RESP 18; TEMP 36.4; O2SAT 96; BMI 20.5
--- OUTSIDE RECORDS SUMMARY | 2025-02-21 06:53 | XMS_ITS | Clinical Summary ---
Author Organization [facility] Address [address] [place] [address] Phone Care Team Providers Care Kiss Machine Operator Name Role Phone Adela Wasserman MD Primary Care Provider [phone] Social History Tobacco Use Types Packs/Day Years [...] ID:[id number] Group ID:[id number] Type:Not on file Address: [place] [address] [place] [id number] Care Teams Kiss Machine Operator Relationship Specialty Start Date End Date Adela Wasserman MD [address] [place] [address] , [address] [facility] D/B/A: [facility] [place], [place] PCP - General Internal Medicine 12/08/24
--- OUTSIDE RECORDS SUMMARY | 2025-02-21 06:53 | XMS_ITS | Data Portability ---
Author Organization [employer] [facility] Address [address] [place] [address] Care Team Providers Care Fixed Income Trading Vice President Name Role Phone HIM CCA Primary Care Provider Assessment Encounter Date Assessment Date Assessment LastModified by Organization Details LastModified Time 03/27/2024 03/27/2024 I provided real -time medical direction via phone for this encounter, and was available for additional phone based assistance as needed. I have reviewed and agree with the Assessment and Plan as documented by the Pest Control Supervisor. We discussed the diagnostic uncertainty of home [...] for evaluation and management. Report called to [facility] ER [email or web address] Not available 03/27/2024 13:41:34 Plan of Treatment [...] 03/27/2024 6 RxNorm Radha Fernández MD [address] [facility],[address], [place], [address] [facility] [employer] 13:34:28 Medications Name Sig Start Date Stop [...] 4 114 /min 20 /min 121.92 cm 94064 g 94 % 94 % 98.8 [degF] [...] SNOMED-CT Code Diagnosis ICD10 Code Diagnosis Note [id number] Radha Fernández MD Main - [address] [address] 03/27/2024 13:23:51 03/29/2024 11:48:16 Diverticulitis [id number] K57.92 Health Concerns Section Related Observation LastModified by Organization Detai ls LastModified Time None Recorded Concern Status LastModified by Organization Details LastModified Time None Recorded Advance Directives Directive None Recorded Payers Encounter Date Sequence Insurance Name Policy Number Policy Charles Covered Member ID Charles Member ID Guarantor Name 03/27/2024 1 [facility] - DOS ON OR AFTER 2023 - DUAL ELIGIBLE - [employer] OPTIONS AND ONE CARE (MEDICARE REPLACEMENT/ADV ANTAGE - HMO) Sosa Joiner [id number] Sosa Joiner Notes Date Note Type Note [...] was seen in the ER 03/[address] [facility] -CT attached. She has been complaining of a frontal headache -CT head and neck were negative for acute disease in the ER -she is complaining of severe abdominal pain Pest Control Supervisor POC Test Results from Amy Montana - [facility] Blood Glucose Measurement (1) [14:39] Blood Glucose: 149 mg/dL .................... .................... .................... .................... .................... .................... .................... . Pest Control Supervisor Note From Amy Montana: Sent to a [...] scans performed (results uploaded to [facility]) at [place] ED on 03/25 and prescribed Levofloxacin 500mg [...] narcotics for pain during flares. [facility]. [facility]/venous blood draw, stating she would prefer to go to ED. [facility] consulted and orders BG as pt does not check BG regularly. Pt states she usually uses CGM, but ran out, and hasn't used glucometer for over 1 week. B; [facility] [place] report to [facility] ED. 911 contacted and pt care transferred to [facility] crew. Pt transported to [facility] ED via [place]. .................... .................... .................... .................... .................... .................... .................... . Disposition: Fulfilled Radha Fernández MD [address] [facility],[address], [place], [address], [facility] - [employer] TOLBERT 03/27/2024 14:55:37 OBGyn Episode No OBEpisode recorded.
--- OUTSIDE RECORDS SUMMARY | 2025-02-21 06:53 | XMS_ITS | Clinical Summary ---
Author Organization [facility] Address [address] [place] [address] Phone Care Team Providers Care Cloth Packer Name Role Phone Adela Gipson MD Primary Care Provider [phone] Allergies Active Allergy Reactions Criticality Noted Date [...] Visit [facility] [address] [place] [address] Alexi Warren MD [address] [address] Health Maintenance Due Date Last Done Comments [...] Relevant to Health Maintenance Insurance [facility] [place] [id number] Care Teams Cloth Packer Relationship Specialty Start Date End Date Adela Gipson MD [address] [place], [place] PCP - General Internal Medicine 05/28/22
--- NOTE | 2025-02-21 08:14 | ED.EXTPRO ---
HPI - Extremity Problem General Chief complaint: Extremity Injury, Upper Stated complaint: possible broken right wrist Time Seen by Provider: 02/21/25 07:45 Source: patient Mode of arrival: ambulatory Limitations: no limitations History of Present Illness ED Provider: DR. Alfred HPI Narrative: 64-year-old female came in for evaluation of right wrist pain, patient is a exvoh-omwh-jaihvmfz, tripped on the bed sheet while getting out of bed causing her to fall try to protect her fall with outstretched wrist, no head injury, no LOC, no neck pain, no chest pain, no abdominal pain, no other extremity pain. Patient is on Plavix declined anticoagulation therapy. Related Data Home Medications ?Medication ?Instructions ?Recorded ?Confirmed albuterol sulfate 90 mcg/actuation 2 inh inhalation Q4H PRN Shortness 08/23/23 02/10/25 aerosol inhaler Of Breath Or Wheezing fluticasone fur. 200 mcg-umeclid 1 ea inhalation DAILY 02/06/24 02/10/25 62.5 mcg-vilant 25 mcg inhalat.powder (Trelegy Ellipta) Previous Rx's ?Medication ?Instructions ?Recorded walker #1 ea 02/08/23 pen needle, diabetic 31 gauge x #200 ea 11/27/23 5/16 (Comfort EZ Pen Jefferson) dulaglutide 1.5 mg/0.5 mL 1.5 mg (0.5 mL) subcut TH@0900 #6 12/30/23 subcutaneous pen injector mL (Trulicity) Shower Chair #1 ea 01/15/24 clamp on tub safety rail #1 ea 01/15/24 ez weaver needle loom bed assist support #1 ea 01/15/24 famotidine 20 mg tablet 20 mg PO BEDTIME 90 days #90 tabs 01/31/24 ondansetron 4 mg disintegrating 4 mg PO Q8H PRN nausea and 02/19/24 tablet vomiting #20 tabs simethicone 125 mg capsule 125 mg PO DAILY PRN gas pain #30 04/28/24 caps tramadol 50 mg tablet 50 mg PO Q6H PRN pain #20 tabs 10/06/24 lmtnoishxz-hhqegydnohume-xobgchwe 1 tab PO Q6H PRN haeadace #20 tabs 10/18/24 50 mg-325 mg-40 mg tablet aspirin 81 mg tablet,delayed 81 mg PO DAILY 90 days #90 tabs 10/19/24 release blood pressure monitor #1 ea 11/04/24 blood pressure test kit-medium #1 ea 11/04/24 trazodone 50 mg tablet 50 mg PO BEDTIME PRN sleep 90 days 11/04/24 #90 tabs metoclopramide HCl 5 mg tablet 5 mg PO TID PRN nausea and 11/19/24 (Reglan) vomiting 30 days #90 tabs lancets 28 gauge (FreeStyle #100 ea 12/09/24 Lancets) blood sugar diagnostic (FreeStyle #100 ea 12/13/24 Lite Strips) pregabalin 200 mg capsule 200 mg PO BID #60 caps 12/16/24 folic acid 1 mg tablet 1 mg PO DAILY #90 tabs 12/23/24 hydroxychloroquine 200 mg tablet 200 mg PO DAILY #90 tabs 12/23/24 (Plaquenil) methotrexate sodium 2.5 mg tablet 15 mg (6 x 2.5 mg) PO QWEEK #72 12/23/24 tabs melatonin 1 mg tablet 1 mg PO BEDTIME sleep #90 tabs 02/09/25 clopidogrel 75 mg tablet 75 mg PO DAILY #100 tabs 02/10/25 trazodone 100 mg tablet 100 mg PO BEDTIME 90 days #90 tabs 02/10/25 metoprolol succinate 25 mg 25 mg PO DAILY #90 tabs 02/11/25 tablet,extended release 24 hr pantoprazole 40 mg tablet,delayed 40 mg PO DAILY #90 tabs 02/12/25 release Allergies Allergy/AdvReac Type Severity Reaction Status Date / Time methylprednisolone Allergy Severe Rash from Verified 02/21/25 06:54 Solu-Medrol shellfish derived Allergy Intermediate Hives Verified 02/21/25 06:54 etanercept [From Enbrel] AdvReac Severe Facial Verified 02/21/25 06:54 Swelling metformin AdvReac Severe Diarrhea Verified 02/21/25 06:54 metronidazole [From FLAGYL] AdvReac Severe Diarrhea Verified 02/21/25 06:54 prednisone AdvReac Intermediate hallucinations, Verified 02/21/25 06:54 more than 20 mg doses Review of Systems Review of Systems: All other systems are reviewed and are negative Constitutional: Reports as per HPI and Reports no additional constitutional complaints Eyes: Reports as per HPI and Reports no additional eye complaints Reports system reviewed and no additional complaints, except as documented Cardiovascular: Reports as per HPI and Reports no additional cardiovascular complaints Respiratory: Reports as per HPI and Reports no additional respiratory complaints Gastrointestinal: Reports as per HPI and Reports no additional gastrointestinal complaints Genitourinary: Reports no additional female genitourinary complaints Musculoskeletal: Reports no additional musculoskeletal complaints Skin/Breast: Reports system reviewed and no additional complaints, except as docu Psychiatric: Reports no additional psychiatric complaints Endocrine: Reports no additional endocrine complaints Hematologic/Lymphatic: Reports no additional hematologic/lymphatic complaints Allergic/Immunologic: Reports no additional allergic/immunologic complaints Reports system reviewed and no additional complaints, except as documented and Reports Abnormal speech present COUNTS INCLUDE 234 BEDS AT THE [facility] Past Medical History Medical History CAD (coronary artery disease) NSTEMI (non-ST elevated myocardial infarction) GERD (gastroesophageal reflux disease) Diverticulitis 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 Acute respiratory distress Tendonitis of ankle or foot Cough Stable angina Anxiety HLD (hyperlipidemia) HTN (hypertension) COPD exacerbation Hyperkalemia Atherosclerotic cardiovascular disease Hospital discharge follow-up Colitis CVA (cerebral vascular accident) (~2018) Breast pain, right Rash Bloody diarrhea PAD (peripheral artery disease) Hyperlipidemia LDL goal <100 COPD (chronic obstructive pulmonary disease) Infiltrating ductal carcinoma of left breast, stage 2 Insomnia Dyslipidemia Bipolar 1 disorder, depressed Cough Restrictive airway disease Hypothyroid IDDM (insulin dependent diabetes mellitus) Vitamin D deficiency Osteoporosis Breast cancer Hyperparathyroidism Thyroid nodule T2DM (type 2 diabetes mellitus) Depression Fibromyalgia Seropositive rheumatoid arthritis Reactive airways dysfunction syndrome Allergic rhinitis Irritable bowel Anxiety Bronchial asthma Diabetes type 2, uncontrolled Surgical History S/P laparoscopic colectomy (04/15/24) Hx of sigmoidoscopy History of bronchoscopy Hx of endoscopy H/O cardiac catheterization History of lumpectomy of left breast History of pubovaginal sling History of esophagogastroduodenoscopy (EGD) History of tubal ligation History of colonoscopy History of bunionectomy of both great toes H/O: hysterectomy Family History Family History Mother Diabetes HTN (hypertension) Uterus cancer Malignant tumor of head Breast cancer Father Diabetes HTN (hypertension) CVD (cardiovascular disease) Heart problem Maternal Aunt Breast cancer Brother Myocardial infarction S/P CABG x 4 Family/Other FH: mental illness Family/Other Lung cancer Other Mental health disorder Social History Social History Household Members: Family Household Members Other:: sister Housing: House Are you a primary floor care specialist to a significant other at home: No Do you presently have visiting nurse or other home services: No Unable to assess alcohol history related to: Unknown Alcohol intake: never Comment: Low fall Patient Tobacco Use Status: Former Tobacco user Tobacco use type: Cigarette Cigarette Packs Per Day: 0.5 Cigarettes Per Day: 3 Years Smoked: 48 e-Cigarette/Vaping Use: Never Used Second Hand Smoke Exposure: No Substance Use Type: Marijuana Advance Directives: Yes Advance Directives on File: Yes Advance Directives Date on File: 12/22/21 service: No Current occupational status: disabled Current occupation: rt handed Cognitive needs: No Hearing needs: No Vision needs: Yes Physical Exam Vital Signs: Vital Signs: Last Vital Signs Temp 97.6 F 02/21/25 06:53 Pulse 85 02/21/25 06:53 Resp 18 02/21/25 06:53 BP 113/78 02/21/25 06:53 Pulse Ox 96 02/21/25 06:53 O2 Del Method Room Air 02/21/25 06:53 BMI result Body Mass Index 20.5 Vital signs have been reviewed and appear to be correct. Blood pressure elevated. Heart rate normal. Respiratory rate normal. Temperature normal. Oxygen saturation normal. Appearance: Alert. Oriented X3. No acute distress. Head: Normal external exam. Normocephalic. Atraumatic. No Raya signs noted. No raccoon eyes noted Eyes: PERRLA. EOMI. Conjunctiva and sclera normal. Eyelids normal. ENT: TM's Normal. Pharynx normal. Uvula midline. Moist mucous membranes. No trismus noted. No drooling noted. No muffled voice noted. Neck: Normal inspection. Neck supple. FROM. No adenopathy. Thyroid Normal. No meningeal signs. No neck mass noted. CVS: Normal heart rate and rhythm. Heart sound normal. No murmurs noted. Pulses normal throughout. Respiratory: No respiratory distress. Painless inspiration. Breath sounds normal. No wheezes/rales/rhonchi noted. Chest nontender. No accessory muscle usage noted or decreased air movement noted. Abdomen: Soft and nontender. Bowel sounds normal in all 4 quadrants. No distention noted. No organomegaly noted. No visible injury noted. Back: No CVA tenderness. Full range of motion noted. Skin: Skin warm and dry. Normal skin color. Normal skin turgor. No rashes/lesions/lacerations noted. Extremities: Right upper extremity exam: Diffuse tenderness over the right wrist area, pain is more focal on the ulnar side of the right wrist, mild swelling, full range of motion of the right hand, neurovascularly intact. Neuro: Oriented X 3. Cranial nerve exam: II-XII are grossly intact No motor deficit. No sensory deficit. Reflexes normal. Course Reevaluation(s) Reevaluation #1: 64-year-old female s/p mechanical fall causing a right triquetral fracture of the right wrist. Ulnar gutter splint was applied to the patient, feels better after immobilization and oxycodone. Will discharge to follow-up with ortho. Time: 08:18 Medical Decision Making Differential Diagnosis Differential Diagnoses: The differential diagnosis associated with the presentation includes (Wrist fracture, hand fracture, head injury, cervical spine injury, chest injury, abdominal injury, other extremity energy) Admission/Observation Consideration of admission/observation: Escalation of care including admission/observation considered Independent Interpretation I performed an independent interpretation of an: Plain X-Ray (Right wrist x-ray: Dorsal triquetral fracture) Radiology Impression Discussion of test interpretation with radiology: I have reviewed the radiologist's reading. Discharge Plan Discharge Clinical Impression: Fracture of triquetral bone of right wrist Patient Disposition: Home, Self-Care Instructions: Wrist Fracture in Adults (ED) Additional Instructions: Take fslm-oiy-dxoztqb Tylenol 500 mg or ibuprofen 200 mg every 6 hours if needed for pain. Apply ice to the right wrist. Make sure you make an appointment with ortho for follow-up. Prescriptions: No Action (DME) walker Misc See Rx Instructions .Route Qty: 1 0RF Rx Instructions: with seat Trulicity 1.5 mg/0.5 mL pen injector 1.5 mg subcut TH@0900 Qty: 6 3RF (DME) Shower Chair Misc See Rx Instructions .Route Qty: 1 0RF Rx Instructions: As directed (DME) clamp on tub safety rail See Rx Instructions .Route .MEDSUPPLY Qty: 1 0RF Rx Instructions: As directed (DME) ez weaver needle loom bed assist support See Rx Instructions .Route .MEDSUPPLY Qty: 1 0RF Rx Instructions: As directed famotidine 20 mg tablet 20 mg PO BEDTIME 90 Days Qty: 90 1RF aspirin 81 mg tablet,delayed release (DR/EC) 81 mg PO DAILY 90 Days Qty: 90 1RF (DME) lancets [FreeStyle Lancets] 28 gauge misc See Rx Instructions .Route Qty: 100 3RF Rx Instructions: Use 1 lancet once a day (DME) FreeStyle Lite Strips Strip MISCELLANEOUS DAILY Qty: 100 1RF Rx Instructions: Use 1 test strip three times a day pregabalin 200 mg capsule 200 mg PO BID Qty: 60 4RF trazodone 100 mg tablet 100 mg PO BEDTIME 90 Days Qty: 90 1RF metoprolol succinate 25 mg tablet extended release 24 hr 25 mg PO DAILY Qty: 90 3RF pantoprazole 40 mg tablet,delayed release (DR/EC) 40 mg PO DAILY Qty: 90 1RF ondansetron 4 mg tablet,disintegrating 4 mg PO Q8H PRN (Reason: nausea and vomiting) Qty: 20 0RF tramadol 50 mg tablet 50 mg PO Q6H PRN (Reason: pain) Qty: 20 0RF studisyhyt-eswwieiwrripb-pxin 50-325-40 mg tablet 1 tab PO Q6H PRN (Reason: haeadace) Qty: 20 0RF ([facility]) pen needle, diabetic [Comfort EZ Pen Jefferson] 31 gauge x 5/16 needle See Rx Instructions .ROUTE .MEDSUPPLY Qty: 200 11RF Rx Instructions: Use 1 pen needle 6 times a day albuterol sulfate 90 mcg/actuation HFA aerosol inhaler 2 inh inhalation Q4H PRN (Reason: Shortness Of Breath Or Wheezing) (DME) blood pressure monitor Kit See Rx Instructions .Route Qty: 1 0RF Rx Instructions: As directed clopidogrel 75 mg tablet 75 mg PO DAILY Qty: 100 4RF Rx Instructions: Take 4 tablets on first day then 1 tablet daily. Trelegy Ellipta 200-62.5-25 mcg blister with device 1 ea inhalation DAILY simethicone 125 mg capsule 125 mg PO DAILY PRN (Reason: gas pain) Qty: 30 0RF trazodone 50 mg tablet 50 mg PO BEDTIME PRN (Reason: sleep) 90 Days Qty: 90 0RF (DME) blood pressure test kit-medium Kit See Rx Instructions .Route Qty: 1 0RF Rx Instructions: As directed hydroxychloroquine [Plaquenil] 200 mg tablet 200 mg PO DAILY Qty: 90 1RF methotrexate sodium 2.5 mg tablet 15 mg PO QWEEK Qty: 72 1RF folic acid 1 mg tablet 1 mg PO DAILY Qty: 90 1RF metoclopramide HCl [Reglan] 5 mg tablet 5 mg PO TID PRN (Reason: nausea and vomiting) 30 Days Qty: 90 1RF Rx Instructions: Take 30 min before lunch and dinner and at bedtime melatonin 1 mg tablet 1 mg PO BEDTIME Qty: 90 0RF Referrals: Gena Cruz MD [Physician] - Print Language: Persian
[2025-02-21] MEDS: oxyCODONE HCl Immed Release 5 MG TABLET PO (08:30)
--- NOTE | 2025-02-21 08:35 | PC.NURSE ---
at bedside to splint patient. Dc placed, Pain medications given at prior to DC, pt did not want the motrin d/t being on a blood thinner. Oxycodone given, pt educated to take APAP/ ice at home. Pt in agreement to come back if splint becomes to tight.
[2025-02-21 08:37] VITALS: BP 113/78; PULSE 85; RESP 18; TEMP 36.4; O2SAT 96
== END 2025-02-21 08:38 | disposition home or self-care (01) ==
PROVIDERS: Emergency Provider Emergency Medicine; PCP Internal Medicine
DX: S62.111A Displaced fracture of triquetrum [cuneiform] bone, right wrist, initial encounter for closed fracture (principal); W06.XXXA Fall from bed, initial encounter; M25.531 Pain in right wrist; Y93.89 Activity, other specified; Y92.013 Bedroom of single-family (private) house as the place of occurrence of the external cause; Y99.9 Unspecified external cause status
CPT/HCPCS: 29125; 73110; 99284

== ENCOUNTER → 2025-02-21 07:15 | Outpatient (BNV) | payer OTHER, SELFPAY ==
[2025-01-12 13:37] VITALS: BP 96/60; BP 96/66; BMI 22.5
== END ==
PROVIDERS: Emergency Provider Emergency Medicine; PCP Internal Medicine; Visit Provider Specialist
DX: S62.111A Displaced fracture of triquetrum [cuneiform] bone, right wrist, initial encounter for closed fracture (principal)
CPT/HCPCS: 73110

== ENCOUNTER 2025-03-01 08:32 | Outpatient (REF) | payer OTHER, SELFPAY ==
[2025-01-12 13:37] VITALS: BP 96/60; BP 96/66; BMI 22.5
--- NOTE | ~2025-03-01 | XR_ITS ---
EXAMINATION: XR WRIST 3 OR MORE VIEWS RIGHT HISTORY: M25.531 - Pain in right wrist COMPARISON: Comparison is made with the prior examination dated 02/21/2025. FINDINGS: Three views of the right wrist are submitted. Osseous mineralization is normal. Again seen is a triangular fracture fragment the dorsum of the wrist, consistent with a triquetral fracture. The fracture line remains visible. Again seen is a well-corticated osseous density adjacent to the tip of the ulnar styloid which may represent the result of old trauma. The joint spaces are preserved. There is persistent dorsal soft tissue swelling. XR/XR wrist RT min 3V IMPRESSION: Fracture of the dorsal triquetrum without change. Electronically signed by: Hernandez Darling MD 03/01/2025 03:06 PM EDT
--- OUTSIDE RECORDS SUMMARY | 2025-03-01 08:59 | XMS_ITS | Data Portability ---
Author Organization [employer] Address [address] [place] [address] Care Team Providers Care Food Production Supervisor Name Role Phone HIM CCA Primary Care Provider [phone] Assessment Encounter Date Assessment Date Assessment LastModified by Organization Details LastModified Time 03/27/2024 03/27/2024 I provided real -time medical direction via phone for this encounter, and was available for additional phone based assistance as needed. I have reviewed and agree with the Assessment and Plan as documented by the Idea Worker. We discussed the diagnostic uncertainty of home [...] for evaluation and management. Report called to [facility] ER [email or web address] Not available 03/27/2024 13:41:34 Plan of Treatment [...] 03/27/2024 6 RxNorm Radha Fernández MD [address] [facility],[address], [place], [address] [facility] 13:34:28 Medications Name Sig Start Date Stop [...] 4 114 /min 20 /min 121.92 cm 21555 g 94 % 94 % 98.8 [degF] [...] SNOMED-CT Code Diagnosis ICD10 Code Diagnosis Note [id number] Radha Fernández MD Main - [address] [address] 03/27/2024 13:23:51 03/29/2024 11:48:16 Diverticulitis [id number] K57.92 Health Concerns Section Related Observation LastModified by Organization Detai ls LastModified Time None Recorded Concern Status LastModified by Organization Details LastModified Time None Recorded Advance Directives Directive None Recorded Payers Encounter Date Sequence Insurance Name Policy Number Policy Charles Covered Member ID Charles Member ID Guarantor Name 03/27/2024 1 [facility] - DOS ON OR AFTER 2023 - DUAL ELIGIBLE - [facility] OPTIONS AND ONE CARE (MEDICARE REPLACEMENT/ADV ANTAGE - HMO) Sosa Joiner [id number] Sosa Joiner Notes Date Note Type Note [...] was seen in the ER 03/25 at [facility] -CT attached. She has been complaining of a frontal headache -CT head and neck were negative for acute disease in the ER -she is complaining of severe abdominal pain Idea Worker POC Test Results from Amy Montana - [facility] Blood Glucose Measurement (1) [14:39] Blood Glucose: 149 mg/dL .................... .................... .................... .................... .................... .................... .................... . Idea Worker Note From Amy Montana: Sent to a [...] to [facility]) at [place] ED on 03/25 and prescribed Levofloxacin 500mg [...] narcotics for pain during flares. [facility]. [facility]/venous blood draw, stating she would prefer to go to ED. [facility] consulted and orders BG as pt does not check BG regularly. Pt states she usually uses CGM, but ran out, and hasn't used glucometer for over 1 week. B; [facility] calls report to [facility] ED. 911 contacted and pt care transferred to [facility] crew. Pt transported to [facility] ED via [facility]. .................... .................... .................... .................... .................... .................... .................... . Disposition: Fulfilled Radha Fernández MD [address] [facility],[address], [place], [address], [facility] - [facility] 03/27/2024 14:55:37 OBGyn Episode No OBEpisode recorded.
--- OUTSIDE RECORDS SUMMARY | 2025-03-01 08:59 | XMS_ITS | Clinical Summary ---
Author Organization [facility] [employer] [facility] Address [address] [address] Phone Care Team Providers Care Spanish Translator Name Role Phone Adela Wasserman MD Primary Care Provider [phone] Social History Tobacco Use Types Packs/Day Years [...] Vaccine ( - 2023-2 5 season) 2024 Hypertension/CHF/CAD Annual BMP Blood Test 12/13/2024 Influenza Vaccine (Season Ended) 2025 RSV Immunization Adult Patie nts (1 - [...] age to complete this topic Meningococcal B Vaccine Aged Out No l onger eligible based on patient's age to complete [...] Subscriber Plan / Payer (Ef fective 2023-Present) Name:Rhys Sosa Relation to Subscriber:Self Name:Sosa Joiner Payer ID:[id number] Group ID:[id number] Type:Not on file Address: [place] [address] [place] [phone] Care Teams Spanish Translator Relationship Specialty Start Date End Date Adela Wasserman MD [address] [place] [address] , [address] [facility] D/B/A: [facility] [place], [place] PCP - General Internal Medicine 12/08/24
--- OUTSIDE RECORDS SUMMARY | 2025-03-01 08:59 | XMS_ITS | Clinical Summary ---
Author Organization [facility] Address [address] [place] [address] Phone Care Team Providers Care Sail Cutter Name Role Phone Adela Gipson MD Primary Care Provider [phone] Allergies Active Allergy Reactions Criticality Noted Date [...] Visit [facility] [address] [place] [address] Alexi Warren MD [address] [address] Health Maintenance Due Date Last Done Comments Breast Cancer Screening 1960 Pneumococcal Vaccine: 50+ Ye ars (1 of 2 - PCV) 1981 Colorectal Cancer Screening: Annual FOBT 2011 Colorectal [...] Hemoglobin A1C 7.2(A) 4.0 - 6.0 05/24/2022 [facility] Provider LAB BLOOD ORDERABLES Gracie l Result from Last 3 Months or Most Recently Relevant to Health Maintenance Insurance [place] [id number] Care Teams Sail Cutter Relationship Specialty Start Date End Date Adela Gipson MD [address] [place], [place] PCP - General Internal Medicine 05/28/22
== END 2025-03-01 08:33 | disposition home or self-care (01) ==
LOC: HO.HOSX 08:32
DX: M25.531 Pain in right wrist (principal); S62.111D Displaced fracture of triquetrum [cuneiform] bone, right wrist, subsequent encounter for fracture with routine healing
CPT/HCPCS: 25630; 73110; 99212

== ENCOUNTER 2025-03-01 08:47 | Outpatient (AMB) | payer OTHER, SELFPAY ==
[2025-01-12 13:37] VITALS: BP 96/60; BP 96/66; BMI 22.5
[2025-03-01 08:57] VITALS: BMI 20.5
--- NOTE | 2025-03-01 08:57 | A.OFFVIS_ITS ---
Vital Signs 03/01/25 08:57 Height 4 ft 10 in Weight 98 lb BMI 20.5 Intake Visit Reasons: F/C fracture of triquetral bone of RT wrist Intake Note: Sosa is a 64 year old right hand dominant female who presents today for a fracture care and emergency department visit for her right dorsal triquetral fracture s/p trip and fall, DOI: 02/21/25. Per [facility] emergency department note from 02/22/25 patient was getting out of bed when her foot got caught in the sheets causing her to trip and fall. She attempted to break her fall however landed on outstretched hands. She was splinted and referred to orthopedics for further evaluation. Currently states she has mild pain especially when trying to move her wrist. Also mentioned she has numbness and tingling in her ring and small finger which she did not have prior to her fall. Allergies methylprednisolone Allergy (Severe, Verified 03/01/25 08:58) Rash from Solu-Medrol shellfish derived Allergy (Intermediate, Verified 03/01/25 08:58) Hives etanercept [From Enbrel] Adverse Reaction (Severe, Verified 03/01/25 08:58) Facial Swelling metformin Adverse Reaction (Severe, Verified 03/01/25 08:58) Diarrhea metronidazole [From FLAGYL] Adverse Reaction (Severe, Verified 03/01/25 08:58) Diarrhea prednisone Adverse Reaction (Intermediate, Verified 03/01/25 08:58) hallucinations, more than 20 mg doses HPI HPI F/C fracture of triquetral bone of RT wrist : Details: Sosa is a 64 year old right hand dominant female who presents today for a fracture care and emergency department visit for her right dorsal triquetral fracture s/p trip and fall, DOI: 02/21/25. Per [facility] emergency department note from 02/22/25 patient was getting out of bed when her foot got caught in the sheets causing her to trip and fall. She attempted to break her fall however landed on outstretched hands. She was splinted and referred to orthopedics for further evaluation. Currently states she has mild pain especially when trying to move her wrist. Patient reports that this pain is primarily on the dorsal and ulnar aspect of the right wrist, but she is also experiencing significant discomfort at the base of the thumb and in the anatomical snuffbox Also mentioned she has numbness and tingling in her ring and small finger which she did not have prior to her fall. 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 Acute respiratory distress Tendonitis of ankle or foot Cough Stable angina Anxiety HLD (hyperlipidemia) HTN (hypertension) COPD exacerbation Hyperkalemia Atherosclerotic cardiovascular disease Hospital discharge follow-up Colitis CVA (cerebral vascular accident) (~2018) Breast pain, right Rash Bloody diarrhea PAD (peripheral artery disease) Hyperlipidemia LDL goal <100 COPD (chronic obstructive pulmonary disease) Infiltrating ductal carcinoma of left breast, stage 2 Insomnia Dyslipidemia Bipolar 1 disorder, depressed Cough Restrictive airway disease Hypothyroid IDDM (insulin dependent diabetes mellitus) Vitamin D deficiency Osteoporosis Breast cancer Hyperparathyroidism Thyroid nodule T2DM (type 2 diabetes mellitus) Depression Fibromyalgia Seropositive rheumatoid arthritis Reactive airways dysfunction syndrome Allergic rhinitis Irritable bowel Anxiety Bronchial asthma Diabetes type 2, uncontrolled Surgical History S/P laparoscopic colectomy (04/15/24) Hx of sigmoidoscopy History of bronchoscopy Hx of endoscopy H/O cardiac catheterization History of lumpectomy of left breast History of pubovaginal sling History of esophagogastroduodenoscopy (EGD) History of tubal ligation History of colonoscopy History of bunionectomy of both great toes H/O: hysterectomy Family History Mother Diabetes HTN (hypertension) Uterus cancer Malignant tumor of head Breast cancer Father Diabetes HTN (hypertension) CVD (cardiovascular disease) Heart problem Maternal Aunt Breast cancer Brother Myocardial infarction S/P CABG x 4 Family/Other FH: mental illness Family/Other Lung cancer Other Mental health disorder Social History Household Members: Family Household Members Other:: sister Housing: House Are you a primary senior care manager to a significant other at home: No Do you presently have visiting nurse or other home services: No Unable to assess alcohol history related to: Unknown Alcohol intake: never Comment: Low fall Patient Tobacco Use Status: Former Tobacco user Tobacco use type: Cigarette Cigarette Packs Per Day: 0.5 Cigarettes Per Day: 3 Years Smoked: 48 e-Cigarette/Vaping Use: Never Used Second Hand Smoke Exposure: No Substance Use Type: Marijuana Advance Directives Date on File: 12/22/21 service: No Current occupational status: disabled Current occupation: rt handed Cognitive needs: No Hearing needs: No Vision needs: Yes Review of Systems Const All systems reviewed & are unremarkable except as noted in HPI and below Physical Exam Vital Signs: BMI result Body Mass Index 20.5 Extrem Other: Patient is alert, oriented, and in no acute distress. Neuro: Normal sensation of the tips of all digits of the right hand at this time Vascular: Cap refill brisk Pain: Tenderness to palpation of the dorsal and ulnar aspect of the right wrist Tenderness to palpation of the anatomical snuffbox of the right wrist Minimal tenderness to palpation of scaphoid tubercle No tenderness to palpation of radial and ulnar styloid ROM: Patient was able to make a closed fist and extend all digits of the right hand Skin: No lacerations or abrasions. General: No ecchymosis, erythema, or evidence of infection. Psych: Appears grossly normal Affect normal Attitude cooperative Office Procedures AMB Fracture Care Details: Right triquetral fracture Fracture Billing Code: Fracture Billing Code Casting/Splints 85936-Kkft/Wrist Cast Application Procedure code (CPT) selection complete Assessment & Plan Assessment & Plan (1) Fracture of triquetral bone of right wrist: Code(s): S62.111A - Displaced fracture of triquetrum [cuneiform] bone, right wrist, initial encounter for closed fracture Category: Medical (2) Tenderness of anatomical snuffbox: Code(s): M79.643 - Pain in unspecified hand Category: Medical Plan 1. Triquetral fracture of right wrist 2. Anatomical snuffbox tenderness of right wrist with no x-ray evidence of scaphoid fracture Patient is educated about these injuries Patient is educated about the typical treatment course At this time, patient was placed into a thumb spica cast Patient is educated about typical cast care and precautions At this time, patient was informed that snuffbox tenderness as concerning for potential occult scaphoid fracture, and she is being placed into a thumb spica cast out of an abundance of caution, it was also educated that this will immobilize her other fracture as well Follow-up in 2-3 weeks with repeat x-rays and cast off, sooner with any acute concerns Orders: Orders XR wrist RT min 3V Today M25.531 - Pain in right wrist Coding Level of Care Code Est Pt Level 3 (80900) Diagnoses Fracture of triquetral bone of right wrist S62.111A Tenderness of anatomical snuffbox M79.643 CPT Codes Fracture Care - Fracture Billing Code: Fracture Billing Code ([id number]) Casting - CPT: 20823-Lyvk/Wrist Cast Application ([id number])
--- OUTSIDE RECORDS SUMMARY | 2025-03-01 09:30 | XMS_ITS | Clinical Summary ---
Author Organization [facility] [employer] [facility] Address [address] [place] [address] Phone Care Team Providers Care Manufacturing Controls Engineer Name Role Phone Adela Wasserman MD Primary Care Provider [phone] Social History Tobacco Use Types Packs/Day Years [...] ID:[id number] Group ID:[id number] Type:Not on file Address: [place] [address] [place] [id number] Care Teams Manufacturing Controls Engineer Relationship Specialty Start Date End Date Adela Wasserman MD [address] [place] [address] , [address] [facility] Physician Associ D/B/A: [facility] [place], [place] PCP - General Internal Medicine 12/08/24
--- OUTSIDE RECORDS SUMMARY | 2025-03-01 09:30 | XMS_ITS | Clinical Summary ---
Author Organization [facility] Address [address] [place] [address] Phone Care Team Providers Care Siene Maker Name Role Phone Adela Gipson MD Primary Care Provider [phone] Allergies Active Allergy Reactions Criticality Noted Date [...] Visit [facility] [address] [place] [address] Alexi Warren MD [address] [address] Health Maintenance Due Date Last Done Comments [...] Hemoglobin A1C 7.2(A) 4.0 - 6.0 05/24/2022 [facility] Provider LAB BLOOD ORDERABLES Gracie l Result from Last 3 Months or Most Recently Relevant to Health Maintenance Insurance [place] [id number] Care Teams Siene Maker Relationship Specialty Start Date End Date Adela Gipson MD [address] [place], [place] PCP - General Internal Medicine 05/28/22
== END 2025-03-01 09:38 | disposition home or self-care (01) ==
PROVIDERS: PCP Internal Medicine
DX: S62.111A Displaced fracture of triquetrum [cuneiform] bone, right wrist, initial encounter for closed fracture (principal); M79.641 Pain in right hand; W01.0XXA Fall on same level from slipping, tripping and stumbling without subsequent striking against object, initial encounter
CPT/HCPCS: 25630; 99213

== ENCOUNTER → 2025-03-01 08:50 | Outpatient (BNV) | payer OTHER, SELFPAY ==
[2025-01-12 13:37] VITALS: BP 96/60; BP 96/66; BMI 22.5
== END ==
PROVIDERS: Visit Provider Radiology Diagnostic Radiology
DX: S62.111A Displaced fracture of triquetrum [cuneiform] bone, right wrist, initial encounter for closed fracture (principal)
CPT/HCPCS: 73110

== ENCOUNTER 2025-03-24 07:46 | Outpatient (REF) | payer OTHER, SELFPAY ==
[2025-01-12 13:37] VITALS: BP 96/60; BP 96/66; BMI 22.5
--- NOTE | ~2025-03-24 | XR_ITS ---
EXAMINATION: XR WRIST, RIGHT CLINICAL INFORMATION: M79.641 - Pain in right hand COMPARISON: 03/01/2025, 02/21/2025. TECHNIQUE: PA, lateral, and oblique views of the right wrist. FINDINGS: There is mild diffuse osteopenia. There is no acute fracture, dislocation, or suspicious bone lesion. There is normal alignment. Stable appearance of the dorsal triquetral fracture, without change in alignment. Fracture lines are indistinct, likely indicating healing. Carpal bones are otherwise intact, normally aligned, without focal abnormality. There is no abnormal lunate tilt. Mild radiocarpal joint space narrowing. Mild arthritis in the STT joints. Mild degenerative type arthritis in the first MCP joint. Joint spaces otherwise well-preserved. There is a small ossicle abutting the tip of the ulnar styloid, likely on the basis of old trauma. No abnormal soft tissue calcification. No soft tissue abnormality. XR/XR wrist RT w scaphoid IMPRESSION: Healing/healed dorsal triquetral fracture, without change in alignment from 03/01/2025. No acute bony abnormalities of the wrist. Mild arthritic changes as discussed. Electronically signed by: Jose Costello MD 03/24/2025 08:24 AM EDT
== END 2025-03-24 07:47 | disposition home or self-care (01) ==
LOC: HO.HOSX 07:46
PROVIDERS: PCP Internal Medicine
DX: M79.643 Pain in unspecified hand (principal); M79.641 Pain in right hand; S62.111A Displaced fracture of triquetrum [cuneiform] bone, right wrist, initial encounter for closed fracture; W01.0XXA Fall on same level from slipping, tripping and stumbling without subsequent striking against object, initial encounter; Y93.9 Activity, unspecified; Y92.9 Unspecified place or not applicable; Y99.9 Unspecified external cause status
CPT/HCPCS: 29085; 73110; 99212

== ENCOUNTER 2025-03-24 07:46 | Outpatient (AMB) | payer OTHER, SELFPAY ==
[2025-01-12 13:37] VITALS: BP 96/60; BP 96/66; BMI 22.5
--- NOTE | 2025-03-24 07:49 | A.OFFVIS_ITS ---
Intake Visit Reasons: OV- fx of triquetral bone of RT wrist-w/xrays Intake Note: Sosa is a 64 year old right hand dominant female who presents today for a follow up visit for her Right triquetral bone Fracture and snuffbox tenderness s/p trip and fall 02/21/25. On 03/01/25 patient was placed into a thumb spica c ast. Cast off and xrays updated today in office. Patient reports that she is having pain at the bony prominence of the ulna, across the dorsal wrist and at the base of the thumb. She has mild numbness in all of her finger tips but she feels that she is not improving significantly. Allergies methylprednisolone Allergy (Severe, Verified 03/24/25 08:14) Rash from Solu-Medrol shellfish derived Allergy (Intermediate, Verified 03/24/25 08:14) Hives etanercept [From Enbrel] Adverse Reaction (Severe, Verified 03/24/25 08:14) Facial Swelling metformin Adverse Reaction (Severe, Verified 03/24/25 08:14) Diarrhea metronidazole [From FLAGYL] Adverse Reaction (Severe, Verified 03/24/25 08:14) Diarrhea prednisone Adverse Reaction (Intermediate, Verified 03/24/25 08:14) hallucinations, more than 20 mg doses HPI HPI OV- fx of triquetral bone of RT wrist-w/xrays: Details: Sosa is a 64 year old right hand dominant female who presents today for a follow up visit for her Right triquetral bone Fracture and snuffbox tenderness s/p trip and fall 02/21/25. On 03/01/25 patient was placed into a thumb spica cast. Cast off and xrays updated today in office. Patient reports that she is having pain at the bony prominence of the ulna, across the dorsal wrist and at the base of the thumb. She has mild numbness in all of her finger tips but she feels that she is not improving significantly. 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 Acute respiratory distress Tendonitis of ankle or foot Cough Stable angina Anxiety HLD (hyperlipidemia) HTN (hypertension) COPD exacerbation Hyperkalemia Atherosclerotic cardiovascular disease Hospital discharge follow-up Colitis CVA (cerebral vascular accident) (~2018) Breast pain, right Rash Bloody diarrhea PAD (peripheral artery disease) Hyperlipidemia LDL goal <100 COPD (chronic obstructive pulmonary disease) Infiltrating ductal carcinoma of left breast, stage 2 Insomnia Dyslipidemia Bipolar 1 disorder, depressed Cough Restrictive airway disease Hypothyroid IDDM (insulin dependent diabetes mellitus) Vitamin D deficiency Osteoporosis Breast cancer Hyperparathyroidism Thyroid nodule T2DM (type 2 diabetes mellitus) Depression Fibromyalgia Seropositive rheumatoid arthritis Reactive airways dysfunction syndrome Allergic rhinitis Irritable bowel Anxiety Bronchial asthma Diabetes type 2, uncontrolled Surgical History S/P laparoscopic colectomy (04/15/24) Hx of sigmoidoscopy History of bronchoscopy Hx of endoscopy H/O cardiac catheterization History of lumpectomy of left breast History of pubovaginal sling History of esophagogastroduodenoscopy (EGD) History of tubal ligation History of colonoscopy History of bunionectomy of both great toes H/O: hysterectomy Family History Mother Diabetes HTN (hypertension) Uterus cancer Malignant tumor of head Breast cancer Father Diabetes HTN (hypertension) CVD (cardiovascular disease) Heart problem Maternal Aunt Breast cancer Brother Myocardial infarction S/P CABG x 4 Family/Other FH: mental illness Family/Other Lung cancer Other Mental health disorder Social History Household Members: Family Household Members Other:: sister Housing: House Are you a primary animal care giver to a significant other at home: No Do you presently have visiting nurse or other home services: No Unable to assess alcohol history related to: Unknown Alcohol intake: never Comment: Low fall Patient Tobacco Use Status: Former Tobacco user Tobacco use type: Cigarette Cigarette Packs Per Day: 0.5 Cigarettes Per Day: 3 Years Smoked: 48 e-Cigarette/Vaping Use: Never Used Second Hand Smoke Exposure: No Substance Use Type: Marijuana Advance Directives Date on File: 12/22/21 service: No Current occupational status: disabled Current occupation: rt handed Cognitive needs: No Hearing needs: No Vision needs: Yes Review of Systems Const All systems reviewed & are unremarkable except as noted in HPI and below Physical Exam Extrem Other: Patient is alert, oriented, and in no acute distress. Neuro: Normal sensation of the tips of all digits of the right hand at this time Vascular: Cap refill brisk Pain: Tenderness to palpation of the dorsal and ulnar aspect of the right wrist Mild Tenderness to palpation of the anatomical snuffbox of the right wrist No tenderness to palpation of scaphoid tubercle No tenderness to palpation of radial and ulnar styloid ROM: Patient was able to make a closed fist and extend all digits of the right hand Skin: No lacerations or abrasions. General: No ecchymosis, erythema, or evidence of infection. Psych: Appears grossly normal Affect normal Attitude cooperative Office Procedures Casting/Splints 72368-Iyxt/Wrist Cast Application Procedure code (CPT) selection complete Results Reviewed Results Reviewed: X-rays obtained in the office today and independently reviewed by me, Vj Portillo PA-C, demonstrate minimally displaced triquetral fracture with evidence of interval bony healing. Assessment & Plan Assessment & Plan (1) Fracture of triquetral bone of right wrist: Code(s): S62.111A - Displaced fracture of triquetrum [cuneiform] bone, right wrist, initial encounter for closed fracture Category: Medical (2) Tenderness of anatomical snuffbox: Code(s): M79.643 - Pain in unspecified hand Category: Medical Plan 1. Triquetral fracture of right wrist 2. Anatomical snuffbox tenderness of right wrist with no x-ray evidence of scaphoid fracture Patient is educated about these injuries Patient is educated about the typical treatment course At this time, patient was placed into a thumb spica cast Patient is educated about typical cast care and precautions At this time, patient was informed that snuffbox tenderness as concerning for potential occult scaphoid fracture, and she is being placed into a thumb spica cast out of an abundance of caution, it was also educated that this will immobilize her other fracture as well Follow-up in 2-3 weeks with repeat x-rays and cast off, sooner with any acute concerns Orders: Orders XR wrist RT w scaphoid Today M79.641 - Pain in right hand Coding Level of Care Code Global (37331) Diagnoses Fracture of triquetral bone of right wrist S62.111A Tenderness of anatomical snuffbox M79.643 CPT Codes Casting - CPT: 43399-Jtkl/Wrist Cast Application ([id number])
--- OUTSIDE RECORDS SUMMARY | 2025-03-24 07:49 | XMS_ITS | Clinical Summary ---
Author Organization [facility] Address [address] [place] [address] Phone Care Team Providers Care Vinyl Hanger Name Role Phone Adela Gipson MD Primary Care Provider [phone] Allergies Active Allergy Reactions Criticality Noted Date [...] Mass Index - - Plan of Treatment Health Maintenance Due Date [...] Most Recently Relevant to Health Maintenance [place] [address] Care Teams Vinyl Hanger Relationship Specialty Start Date End Date Adela Gipson MD [address] [place] [address] PCP - General Internal Medicine 05/28/22
--- OUTSIDE RECORDS SUMMARY | 2025-03-24 07:49 | XMS_ITS | Data Portability ---
Author Organization [employer] Address [address] [place] [address] Care Team Providers Care Olive Picker Name Role Phone HIM CCA Primary Care Provider [phone] Assessment Encounter Date Assessment Date Assessment LastModified by Organization Details LastModified Time 03/27/2024 03/27/2024 I provided real -time medical direction via phone for this encounter, and was available for additional phone based assistance as needed. I have reviewed and agree with the Assessment and Plan as documented by the Deck And Hull Assembler. We discussed the diagnostic uncertainty of home [...] for evaluation and management. Report called to [facility] ER [email or web address] Not available 03/27/2024 13:41:34 Plan of Treatment [...] 03/27/2024 6 RxNorm Radha Fernández MD [address] [facility],[address], [place], [address] [facility] [employer] 13:34:28 Medications Name Sig Start Date Stop [...] 4 114 /min 20 /min 121.92 cm 43736 g 94 % 94 % 98.8 [degF] [...] SNOMED-CT Code Diagnosis ICD10 Code Diagnosis Note [id number] Radha Fernández MD Main - inst[address] [address] 03/27/2024 13:23:51 03/29/2024 11:48:16 Diverticulitis [id number] K57.92 Health Concerns Section Related Observation LastModified by Organization Detai ls LastModified Time None Recorded Concern Status LastModified by Organization Details LastModified Time None Recorded Advance Directives Directive None Recorded Payers Insurance Date Sequence Insurance Name Policy Number Policy Charles Covered Member ID Charles Member ID Guarantor Name 03/29/2024 1 [facility] - DOS ON OR AFTER 2023 - DUAL ELIGIBLE - [facility] OPTIONS AND ONE CARE (MEDICARE REPLACEMENT/ADV ANTAGE - HMO) Sosa Joiner [id number] Sosa Joiner Notes Date Note Type Note [...] was seen in the ER 03/25 at [facility] -CT attached. She has been complaining of a frontal headache -CT head and neck were negative for acute disease in the ER -she is complaining of severe abdominal pain Deck And Hull Assembler POC Test Results from Amy Montana - [facility] Blood Glucose Measurement (1) [14:39] Blood Glucose: 149 mg/dL .................... .................... .................... .................... .................... .................... .................... . Deck And Hull Assembler Note From Amy Montana: Sent to a [...] d CT scans performed (results uploaded to [facility]) at [place] ED on 03/25 and prescribed Levofloxacin 500mg [...] narcotics for pain during flares. [facility]. Pt declines IV access/venous blood draw, stating she would prefer to go to ED. [facility] consulted and orders BG as pt does not check BG regularly. Pt states she usually uses CGM, but ran out, and hasn't used glucometer for over 1 week. B; [facility] calls report to [facility] ED. 911 contacted and pt care transferred to [facility] crew. Pt transported to [facility] ED via [facility]. .................... .................... .................... .................... .................... .................... .................... . Disposition: Fulfilled Radha Fernández MD [address] [facility],[address], [place], [address], NATA - [email or web address] TOLBERT 03/27/2024 14:55:37 OBGyn Episode No OBEpisode recorded.
--- OUTSIDE RECORDS SUMMARY | 2025-03-24 07:49 | XMS_ITS | Clinical Summary ---
Author Organization [facility] [employer] [facility] Address [address] [place] [address] Phone Care Team Providers Care Construction Equipment Operator Name Role Phone Adela Wasserman MD Primary Care Provider [phone] Social History Tobacco Use Types Packs/Day Years [...] ID:[id number] Group ID:[id number] Type:Not on file Address: [place] [address] [place] [phone] Care Teams Construction Equipment Operator Relationship Specialty Start Date End Date Adela Wasserman MD [address] [place] [address] , [address] [facility] Physician Associ D/B/A: [facility] [place], [place] PCP - General Internal Medicine 12/08/24
== END 2025-03-24 08:58 | disposition home or self-care (01) ==
LOC: HO.HOS 07:46
PROVIDERS: PCP Internal Medicine
DX: S62.111A Displaced fracture of triquetrum [cuneiform] bone, right wrist, initial encounter for closed fracture (principal); M79.641 Pain in right hand
CPT/HCPCS: 29085; 99024

== ENCOUNTER → 2025-03-24 08:00 | Outpatient (BNV) | payer OTHER, SELFPAY ==
[2025-01-12 13:37] VITALS: BP 96/60; BP 96/66; BMI 22.5
== END ==
PROVIDERS: PCP Internal Medicine; Visit Provider Radiology Diagnostic Radiology
DX: M79.641 Pain in right hand (principal)
CPT/HCPCS: 73110

== ENCOUNTER 2025-03-25 10:15 | Outpatient (AMB) | payer OTHER, SELFPAY ==
[2025-01-12 13:37] VITALS: BP 96/60; BP 96/66; BMI 22.5
--- NOTE | 2025-03-25 10:25 | MHC.OFFVISPS ---
Intake Intake Visit Reasons: consultation Nurse Practitioner Physician Assistant Required: No Allergies methylprednisolone Allergy (Severe, Verified 03/24/25 08:14) Rash from Solu-Medrol shellfish derived Allergy (Intermediate, Verified 03/24/25 08:14) Hives etanercept [From Enbrel] Adverse Reaction (Severe, Verified 03/24/25 08:14) Facial Swelling metformin Adverse Reaction (Severe, Verified 03/24/25 08:14) Diarrhea metronidazole [From FLAGYL] Adverse Reaction (Severe, Verified 03/24/25 08:14) Diarrhea prednisone Adverse Reaction (Intermediate, Verified 03/24/25 08:14) hallucinations, more than 20 mg doses Medication List - Last Reconciled 03/25/25 by Alicia Yarbrough APRN albuterol sulfate 90 mcg/actuation 2 inhalations inhalation Q4H PRN aspirin 81 mg PO DAILY 90 days blood pressure monitor As directed blood pressure test kit-medium As directed blood sugar diagnostic (FreeStyle Lite Strips) Use 1 test strip three times a day kuawlkneuw-radiwifmglwce-qotw 50-325-40 mg 1 tab PO Q6H PRN [clamp on tub safety rail As directed] clopidogrel 75 mg PO DAILY dulaglutide (Trulicity) 1.5 mg (0.5 mL) subcut TH@0900 [ez limousine and hearse upholsterer bed assist support As directed] famotidine 20 mg PO BEDTIME 90 days lrxwcjizpkr-bzyzzcoms-fkybrojz 200-62.5-25 mcg (Trelegy Ellipta) 1 ea inhalation DAILY folic acid 1 mg PO DAILY hydroxychloroquine (Plaquenil) 200 mg PO DAILY lancets (FreeStyle Lancets) Use 1 lancet once a day melatonin 1 mg PO BEDTIME methotrexate sodium 15 mg (6 x 2.5 mg) PO QWEEK metoclopramide HCl (Reglan) 5 mg PO TID PRN 30 days metoprolol succinate ER 25 mg PO DAILY ondansetron 4 mg PO Q8H PRN pantoprazole 40 mg PO DAILY pen needle, diabetic USE 1 PEN NEEDLE 6 TIMES A DAY pregabalin 200 mg PO BID Shower Chair As directed simethicone 125 mg PO DAILY PRN tramadol 50 mg PO Q6H PRN trazodone 100 mg PO BEDTIME 90 days trazodone 50 mg PO BEDTIME PRN 90 days walker with seat HPI- Psychiatric Chief Complaint: consultation HPI Narrative: pt reports mood continues to be depressed. she has seen cardiology and she says she was told not to take ritalin but low dose lithium would be okay from cardiac standpoint. Her PHQ9= 20 and her gAD7= 6 . She started the melatonin 1mg at bedtime and is still having trouble falling and staying asleep.We discussed trial of lithium and keeping dose low to prevent side effects; she is in agreement. She reports passive SI but no plan and no intent to harm or kill self; no HI Past Psychiatric History: one IPLOC years ago at ; was at [facility] for 3 years in past Subjective Subjective Subjective Medication Compliance: Yes Side effects from medications: No Review of Systems Medical Review of Systems: unchanged Mental Status Exam Mental Status Exam Patient Appearance: Well Grooomed and Appropriate Patient Orientation: Person, Place, Time and Situation Level of Consciousness: Awake and Appropriate Patient Behavior: Appropriate and Cooperative Mood Description: Depressed and Anxious Affect Description: Depressed and Anxious Patient Cognition Impaired: No Ability to Follow Directions: Good Speech Pattern: Clear and Coherent Memory Description: Intact Hallucinations: None Delusions: Not Present Thought Process: Intact and Goal Oriented Thought Content: positive for Intact and positive for Goal Oriented Judgement: Fair Assessment and Plan Assessment & Plan (1) Bipolar 1 disorder, depressed: Status: Acute Code(s): F31.9 - Bipolar disorder, unspecified Medications: New lithium carbonate 150 mg PO .DAILY @0900 90 caps 0RF Counseling and coordination of Care Pt. Self Management counseling: Maintenance-social rhythm, Mod caffeine/ETOH intake, Nutrition education and improvement, Sleep hygiene, General coping skills and Problem solving Medication management counseling: Effectiveness, Side effects, Dosing range, Duration, Drug interaction and Adherence Diagnosis and Prognosis Counseling: Accuracy of diagnosis, Prognosis over time, Impact of diagnosis on life functions, Impact of family relationship, Problematic behaviors secondary to diagnosis and Adequacy of current interventions Details: I spent 35 minutes reviewing the record, seeing the patient and documenting in the medical record. Counseling provided to the patient/caregiver as outlined below. Addressed patient/caregiver concerns regarding current medication regime including effective adherence. Addressed patient/caregiver concerns regarding diagnosis and prognosis including accuracy of diagnosis, prognosis over time, impact of diagnosis. Addressed patient/caregiver concerns regarding impact of recent stressors. 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 Acute respiratory distress Tendonitis of ankle or foot Cough Stable angina Anxiety HLD (hyperlipidemia) HTN (hypertension) COPD exacerbation Hyperkalemia Atherosclerotic cardiovascular disease Hospital discharge follow-up Colitis CVA (cerebral vascular accident) (~2018) Breast pain, right Rash Bloody diarrhea PAD (peripheral artery disease) Hyperlipidemia LDL goal <100 COPD (chronic obstructive pulmonary disease) Infiltrating ductal carcinoma of left breast, stage 2 Insomnia Dyslipidemia Bipolar 1 disorder, depressed Cough Restrictive airway disease Hypothyroid IDDM (insulin dependent diabetes mellitus) Vitamin D deficiency Osteoporosis Breast cancer Hyperparathyroidism Thyroid nodule T2DM (type 2 diabetes mellitus) Depression Fibromyalgia Seropositive rheumatoid arthritis Reactive airways dysfunction syndrome Allergic rhinitis Irritable bowel Anxiety Bronchial asthma Diabetes type 2, uncontrolled Surgical History S/P laparoscopic colectomy (04/15/24) Hx of sigmoidoscopy History of bronchoscopy Hx of endoscopy H/O cardiac catheterization History of lumpectomy of left breast History of pubovaginal sling History of esophagogastroduodenoscopy (EGD) History of tubal ligation History of colonoscopy History of bunionectomy of both great toes H/O: hysterectomy Family History Mother Diabetes HTN (hypertension) Uterus cancer Malignant tumor of head Breast cancer Father Diabetes HTN (hypertension) CVD (cardiovascular disease) Heart problem Maternal Aunt Breast cancer Brother Myocardial infarction S/P CABG x 4 Family/Other FH: mental illness Family/Other Lung cancer Other Mental health disorder Social History Household Members: Family Household Members Other:: sister Housing: House Are you a primary rn urgent care to a significant other at home: No Do you presently have visiting nurse or other home services: No Unable to assess alcohol history related to: Unknown Alcohol intake: never Comment: Low fall Patient Tobacco Use Status: Former Tobacco user Tobacco use type: Cigarette Cigarette Packs Per Day: 0.5 Cigarettes Per Day: 3 Years Smoked: 48 e-Cigarette/Vaping Use: Never Used Second Hand Smoke Exposure: No Substance Use Type: Marijuana Advance Directives Date on File: 12/22/21 service: No Current occupational status: disabled Current occupation: rt handed Cognitive needs: No Hearing needs: No Vision needs: Yes Social History: lives with sister, 2 nephews and 1 son and nephew and his 9 month old son Substance History: none known Coding Level of Care Code Est Pt Level 4 (47254) Diagnoses Bipolar 1 disorder, depressed F31.9
--- OUTSIDE RECORDS SUMMARY | 2025-03-25 11:24 | XMS_ITS | Data Portability ---
Author Organization [employer] [place] [employer] Address [address] [place] [address] Care Team Providers Care Underground Drill Operator Name Role Phone HIM CCA Primary Care Provider Assessment Encounter Date Assessment Date Assessment LastModified by Organization Details LastModified Time 03/27/2024 03/27/2024 I provided real -time medical direction via phone for this encounter, and was available for additional phone based assistance as needed. I have reviewed and agree with the Assessment and Plan as documented by the Events Associate. We discussed the diagnostic uncertainty of home [...] for evaluation and management. Report called to [facility] ER [email or web address] Not available 03/27/2024 13:41:34 Plan of Treatment [...] 03/27/2024 6 RxNorm Radha Fernández MD [address] [facility],[address], [place], [address] [facility] [employer] 13:34:28 Medications Name Sig Start Date Stop [...] 4 114 /min 20 /min 121.92 cm 08241 g 94 % 94 % 98.8 [degF] [...] SNOMED-CT Code Diagnosis ICD10 Code Diagnosis Note [id number] Radha Fernández MD Main - [address] [address] 03/27/2024 13:23:51 03/29/2024 11:48:16 Diverticulitis [id number] K57.92 Health Concerns Section Related Observation LastModified by Organization Detai ls LastModified Time None Recorded Concern Status LastModified by Organization Details LastModified Time None Recorded Advance Directives Directive None Recorded Payers Insurance Date Sequence Insurance Name Policy Number Policy Charles Covered Member ID Charles Member ID Guarantor Name 03/29/2024 1 [facility] - DOS ON OR AFTER 2023 - DUAL ELIGIBLE - LONG-TERM OPTIONS AND ONE CARE (MEDICARE REPLACEMENT/ADV ANTAGE - HMO) Sosa Joiner [id number] Sosa Joiner Notes Date Note Type Note [...] was seen in the ER 03/25 at [facility] -CT attached. She has been complaining of a frontal headache -CT head and neck were negative for acute disease in the ER -she is complaining of severe abdominal pain Events Associate POC Test Results from Amy Montana - [facility] Blood Glucose Measurement (1) [14:39] Blood Glucose: 149 mg/dL .................... .................... .................... .................... .................... .................... .................... . Events Associate Note From Aym Montana: Sent to a call for a [...] to [facility]) at [place] [facility] on 03/25 and prescribed Levofloxacin 500mg [...] narcotics for pain during flares. [facility]. Pt declines IV access/venous blood draw, stating she would prefer to go to ED. [facility] consulted and orders BG as pt does not check BG regularly. Pt states she usually uses CGM, but ran out, and hasn't used glucometer for over 1 week. B; [facility] calls report to [facility] ED. 911 contacted and pt care transferred to [facility] crew. Pt transported to [facility] ED via [facility]. .................... .................... .................... .................... .................... .................... .................... . Disposition: Fulfilled Radha Fernández MD [address] [facility],[address], [place], [address], [facility] - Savy[employer]D TOLBERT 03/27/2024 14:55:37 OBGyn Episode No OBEpisode recorded.
--- OUTSIDE RECORDS SUMMARY | 2025-03-25 11:24 | XMS_ITS | Clinical Summary ---
Author Organization [facility] Bass Manager [facility] Address [address] [place] [address] Phone Care Team Providers Care Child Care Teacher Name Role Phone Adela Wasserman MD Primary Care Provider [phone] Social History Tobacco Use Types Packs/Day Years [...] ID:[id number] Group ID:[id number] Type:Not on file Address: [place] [address] [address] [address] Care Teams Child Care Teacher Relationship Specialty Start Date End Date Adela Wasserman MD [address] [place] [address] , [address] [facility] D[facility]A: [facility] [place], [place] PCP - General Internal Medicine 12/08/24
--- OUTSIDE RECORDS SUMMARY | 2025-03-25 11:24 | XMS_ITS | Clinical Summary ---
Author Organization [facility] Address [address] [place] [address] Phone Care Team Providers Care Trace Clerk Name Role Phone Adela Gipson MD Primary Care Provider [phone] Allergies Active Allergy Reactions Criticality Noted Date [...] Most Recently Relevant to Health Maintenance Insurance [place] [address] Care Teams Trace Clerk Relationship Specialty Start Date End Date Adela Gipson MD [address] [place] [address] PCP - General Internal Medicine 05/28/22
== END 2025-03-25 11:09 | disposition home or self-care (01) ==
LOC: HO.HOP 10:15
PROVIDERS: PCP Internal Medicine; Visit Provider Clinical Nurse Specialist Psychiatric/Mental Health
DX: F31.9 Bipolar disorder, unspecified (principal)
CPT/HCPCS: 99214

== ENCOUNTER → 2025-03-25 10:15 | Outpatient (BNVA) | payer OTHER, SELFPAY ==
[2025-01-12 13:37] VITALS: BP 96/60; BP 96/66; BMI 22.5
== END ==
PROVIDERS: PCP Internal Medicine; Visit Provider Clinical Nurse Specialist Psychiatric/Mental Health
DX: F31.9 Bipolar disorder, unspecified (principal)
CPT/HCPCS: 99212

== ENCOUNTER 2025-04-06 09:12 | Outpatient (AMB) | payer OTHER, SELFPAY ==
[2025-01-12 13:37] VITALS: BP 96/60; BP 96/66; BMI 22.5
--- NOTE | 2025-04-06 09:16 | A.OFFVIS_ITS ---
Vital Signs 04/06/25 09:18 Height 4 ft 10 in Weight 98 lb BMI 20.5 Intake Visit Reasons: OV- fx of triquetral bone of RT wrist-w/xrays Intake Note: Sosa is a 64 year old right hand dominant female who presents today for follow up status post right triquetral bone fracture and snuffbox tenderness, DOI: 02/21/25. At their last visit on 03/24/25 patient was placed into a thumb spica cast with instructions to follow up in 2-3 weeks to update x-rays. Allergies methylprednisolone Allergy (Severe, Verified 04/06/25 09:29) Rash from Solu-Medrol shellfish derived Allergy (Intermediate, Verified 04/06/25 09:29) Hives etanercept [From Enbrel] Adverse Reaction (Severe, Verified 04/06/25 09:29) Facial Swelling metformin Adverse Reaction (Severe, Verified 04/06/25 09:29) Diarrhea metronidazole [From FLAGYL] Adverse Reaction (Severe, Verified 04/06/25 09:29) Diarrhea prednisone Adverse Reaction (Intermediate, Verified 04/06/25 09:29) hallucinations, more than 20 mg doses HPI HPI OV- fx of triquetral bone of RT wrist-w/xrays: Details: Sosa is a 64 year old right hand dominant female who presents today for follow up status post right triquetral bone fracture and snuffbox tenderness, DOI: 02/21/25. At their last visit on 03/24/25 patient was placed into a thumb spica cast with instructions to follow up in 2-3 weeks to update x-rays. The patient reports that she is still experiencing significant pain at the base of the right thumb. Patient expresses that she would not like to go back into another cast at this time, but would be amenable to going into a Velcro wrist splint. [facility] Medical History CAD (coronary artery disease) NSTEMI (non-ST elevated myocardial infarction) GERD (gastroesophageal reflux disease) Diverticulitis large intestine [facility] (current) use 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 Acute respiratory distress Tendonitis of ankle or foot Cough Stable angina Anxiety HLD (hyperlipidemia) HTN (hypertension) COPD exacerbation Hyperkalemia Atherosclerotic cardiovascular disease Hospital discharge follow-up Colitis CVA (cerebral vascular accident) (~2018) Breast pain, right Rash Bloody diarrhea PAD (peripheral artery disease) Hyperlipidemia LDL goal <100 COPD (chronic obstructive pulmonary disease) Infiltrating ductal carcinoma of left breast, stage 2 Insomnia Dyslipidemia Bipolar 1 disorder, depressed Cough Restrictive airway disease Hypothyroid IDDM (insulin dependent diabetes mellitus) Vitamin D deficiency Osteoporosis Breast cancer Hyperparathyroidism Thyroid nodule T2DM (type 2 diabetes mellitus) Depression Fibromyalgia Seropositive rheumatoid arthritis Reactive airways dysfunction syndrome Allergic rhinitis Irritable bowel Anxiety Bronchial asthma Diabetes type 2, uncontrolled Surgical History S/P laparoscopic colectomy (04/15/24) Hx of sigmoidoscopy History of bronchoscopy Hx of endoscopy H/O cardiac catheterization History of lumpectomy of left breast History of pubovaginal sling History of esophagogastroduodenoscopy (EGD) History of tubal ligation History of colonoscopy History of bunionectomy of both great toes H/O: hysterectomy Family History Mother Diabetes HTN (hypertension) Uterus cancer Malignant tumor of head Breast cancer Father Diabetes HTN (hypertension) CVD (cardiovascular disease) Heart problem Maternal Aunt Breast cancer Brother Myocardial infarction S/P CABG x 4 Family/Other FH: mental illness Family/Other Lung cancer Other Mental health disorder Social History Household Members: Family Household Members Other:: sister Housing: House Are you a primary health care technician to a significant other at home: No Do you presently have visiting nurse or other home services: No Unable to assess alcohol history related to: Unknown Alcohol intake: never Comment: Low fall Patient Tobacco Use Status: Former Tobacco user Tobacco use type: Cigarette Cigarette Packs Per Day: 0.5 Cigarettes Per Day: 3 Years Smoked: 48 e-Cigarette/Vaping Use: Never Used Second Hand Smoke Exposure: No Substance Use Type: Marijuana Advance Directives Date on File: 12/22/21 service: No Current occupational status: disabled Current occupation: rt handed Cognitive needs: No Hearing needs: No Vision needs: Yes Review of Systems Const All systems reviewed & are unremarkable except as noted in HPI and below Physical Exam Vital Signs: BMI result Body Mass Index 20.5 Extrem Other: Patient is alert, oriented, and in no acute distress. Neuro: Normal sensation of the tips of all digits of the right hand at this time Vascular: Cap refill brisk Pain: Tenderness to palpation of the dorsal and ulnar aspect of the right wrist Mild Tenderness to palpation of the anatomical snuffbox of the right wrist No tenderness to palpation of scaphoid tubercle No tenderness to palpation of radial and ulnar styloid ROM: Patient was able to make a closed fist and extend all digits of the right hand Skin: No lacerations or abrasions. General: No ecchymosis, erythema, or evidence of infection. Psych: Appears grossly normal Affect normal Attitude cooperative Results Reviewed Results Reviewed: X-rays obtained in the office today and independently reviewed by me, Vj Portillo PA-C, demonstrate minimally displaced triquetral fracture with evidence of interval bony healing. Assessment & Plan Assessment & Plan (1) Tenderness of anatomical snuffbox: Code(s): M79.643 - Pain in unspecified hand Category: Medical (2) Fracture of triquetral bone of right wrist: Code(s): S62.111A - Displaced fracture of triquetrum [cuneiform] bone, right wrist, initial encounter for closed fracture Category: Medical Plan 1. Triquetral fracture of right wrist 2. Anatomical snuffbox tenderness of right wrist with no x-ray evidence of scaphoid fracture Patient is educated about these injuries Patient is educated about the typical treatment course At this time, patient was placed into a thumb spica Velcro splint Patient can only remove the splint while bathing MRI ordered to assess the health of the scaphoid of the right wrist, due to concern for occult fracture due to continued tenderness Follow-up after MRI for results review and discussion of further treatment options, sooner with any acute concerns Orders: Orders XR wrist RT w scaphoid Today M79.641 - Pain in right hand MR wrist RT wo con Today M79.643 - Pain in unspecified hand Coding Level of Care Code Est Pt Level 3 (98657) Diagnoses Tenderness of anatomical snuffbox M79.643 Fracture of triquetral bone of right wrist S62.111A
[2025-04-06 09:18] VITALS: BMI 20.5
--- OUTSIDE RECORDS SUMMARY | 2025-04-06 09:53 | XMS_ITS | Data Portability ---
Author Organization [employer] [place] [employer] Address [address] [place] [address] Care Team Providers Care Library Clerical Assistant Name Role Phone HIM CCA Primary Care Provider Assessment Encounter Date Assessment Date Assessment LastModified by Organization Details LastModified Time 03/27/2024 03/27/2024 I provided real -time medical direction via phone for this encounter, and was available for additional phone based assistance as needed. I have reviewed and agree with the Assessment and Plan as documented by the Front End Alignment Specialist. We discussed the diagnostic uncertainty of home [...] for evaluation and management. Report called to [facility] ER [email or web address] Not available 03/27/2024 13:41:34 Plan of Treatment [...] 03/27/2024 6 RxNorm Radha Fernández MD [address] [facility],[address], [place], [address] [facility] [employer] 13:34:28 Medications Name Sig Start Date Stop [...] 4 114 /min 20 /min 121.92 cm 82752 g 94 % 94 % 98.8 [degF] [...] SNOMED-CT Code Diagnosis ICD10 Code Diagnosis Note [id number] Radha Fernández MD Main - [address] [address] 03/27/2024 13:23:51 03/29/2024 11:48:16 Diverticulitis [id number] K57.92 Health Concerns Section Related Observation LastModified by Organization Detai ls LastModified Time None Recorded Concern Status LastModified by Organization Details LastModified Time None Recorded Advance Directives Directive None Recorded Payers Insurance Date Sequence Insurance Name Policy Number Policy Charles Covered Member ID Charles Member ID Guarantor Name 03/29/2024 1 [facility] - DOS ON OR AFTER 2023 - DUAL ELIGIBLE - ALF OPTIONS AND ONE CARE (MEDICARE REPLACEMENT/ADV ANTAGE - HMO) Sosa Joiner [id number] Sosa Joiner Notes Date Note Type Note [...] was seen in the ER 03/25 at [facility] -CT attached. She has been complaining of a frontal headache -CT head and neck were negative for acute disease in the ER -she is complaining of severe abdominal pain Front End Alignment Specialist POC Test Results from Amy Montana - [facility] Blood Glucose Measurement (1) [14:39] Blood Glucose: 149 mg/dL .................... .................... .................... .................... .................... .................... .................... . Front End Alignment Specialist Note From Amy Montana: Sent to a [...] d CT scans performed ([facility]) at [facility] on 03/25 and prescribed Levofloxacin 500mg [...] narcotics for pain during flares. [facility] advised [facility] Pt declines IV access/venous blood draw, stating she would prefer to go to ED. [facility] consulted and orders BG as pt does not check BG regularly. Pt states she usually uses CGM, but ran out, and hasn't used glucometer for over 1 week. B; [facility] calls report to [facility] ED. 911 contacted and pt care transferred to [facility] crew. Pt transported to [facility] ED via [facility]. .................... .................... .................... .................... .................... .................... .................... . Disposition: Fulfilled Radha Fernández MD [address] [facility],[address], [place], [address], [facility] - [employer] TOLBERT 03/27/2024 14:55:37 OBGyn Episode No OBEpisode recorded.
--- OUTSIDE RECORDS SUMMARY | 2025-04-06 09:53 | XMS_ITS | Clinical Summary ---
Author Organization [facility] Address [address] [place] [address] Phone Care Team Providers Care Military Administrative Technician Name Role Phone Adela Gipson MD Primary Care Provider [phone] Allergies Active Allergy Reactions Criticality Noted Date [...] Most Recently Relevant to Health Maintenance [place] [address] Care Teams Military Administrative Technician Relationship Specialty Start Date End Date Adela Gipson MD [address] [place] [address] PCP - General Internal Medicine 05/28/22
--- OUTSIDE RECORDS SUMMARY | 2025-04-06 09:53 | XMS_ITS | Clinical Summary ---
Author Organization [facility] Address [address] [place] [address] Phone Care Team Providers Care Shape Carver Name Role Phone Adela Wasserman MD Primary Care Provider [phone] Social History Tobacco Use Types Packs/Day Years [...] ID:[id number] Group ID:[id number] Type:Not on file Address: [place] [address] [address] [address] Care Teams Shape Carver Relationship Specialty Start Date End Date Adela Wasserman MD [address] [place] [address] , [address] [facility] D[facility]A: [facility] [place], [place] PCP - General Internal Medicine 12/08/24
== END 2025-04-06 09:53 | disposition home or self-care (01) ==
LOC: HO.HOS 09:13
PROVIDERS: PCP Internal Medicine
DX: M79.641 Pain in right hand (principal); S62.111A Displaced fracture of triquetrum [cuneiform] bone, right wrist, initial encounter for closed fracture
CPT/HCPCS: 99024

== ENCOUNTER → 2025-04-06 09:17 | Outpatient (BNV) | payer OTHER, SELFPAY ==
[2025-01-12 13:37] VITALS: BP 96/60; BP 96/66; BMI 22.5
== END ==
PROVIDERS: Visit Provider Radiology Diagnostic Radiology
DX: M79.641 Pain in right hand (principal)
CPT/HCPCS: 73110

== ENCOUNTER 2025-04-06 09:49 | Outpatient (REF) | payer OTHER, SELFPAY ==
[2025-01-12 13:37] VITALS: BP 96/60; BP 96/66; BMI 22.5
--- NOTE | ~2025-04-06 | XR_ITS ---
EXAMINATION: XR WRIST NAVICULAR RIGHT HISTORY: M79.641 - Pain in right hand COMPARISON: Comparison is made to prior examinations dated 03/24/2025, 03/01/2025, and 02/21/2025. FINDINGS: Four views of the right wrist including a scaphoid view are submitted. Osseous mineralization is normal. Again seen is a fracture of the triquetrum without significant change in appearance. There is subtle sclerosis in the region of the radial styloid which could represent a healing fracture which was occult on the original images. The joint spaces are preserved. The soft tissues are unremarkable. XR/XR wrist RT w scaphoid IMPRESSION: 1. Triquetral fracture without significant change. 2. Subtle band of sclerosis involving the radial styloid which could represent a healing fracture, occult on previous imaging. Electronically signed by: Hernandez Darling MD 04/06/2025 09:48 AM EDT
== END 2025-04-06 09:50 | disposition home or self-care (01) ==
LOC: HO.HOSX 09:49
DX: M79.641 Pain in right hand (principal); S62.111D Displaced fracture of triquetrum [cuneiform] bone, right wrist, subsequent encounter for fracture with routine healing
CPT/HCPCS: 73110; 99212

== ENCOUNTER → 2025-04-11 09:44 | Outpatient (BNV) | payer OTHER, SELFPAY ==
[2025-01-12 13:37] VITALS: BP 96/60; BP 96/66; BMI 22.5
== END ==
PROVIDERS: PCP Internal Medicine; Visit Provider Radiology Diagnostic Radiology
DX: M25.531 Pain in right wrist (principal)
CPT/HCPCS: 73221

== ENCOUNTER 2025-04-11 09:56 | Outpatient (REF) | payer OTHER, SELFPAY ==
[2025-01-12 13:37] VITALS: BP 96/60; BP 96/66; BMI 22.5
--- NOTE | ~2025-04-11 | MR_ITS ---
CLINICAL HISTORY: M79.643 - Pain in unspecified hand --- Additional Notes or Special Instructions: ? scaphoid fx MR right wrist without gadolinium Comparison: DX/SR - XR WRIST RT W SCAPHOID - 04/06/25 09:17 EDT Findings: There is bone marrow edema of the distal radius with evidence of a healed nondisplaced intra-articular fracture. There is a remote fracture of the ulnar styloid. Bone marrow edema is seen in the distal capitate and adjacent to the capitate hamate joint. There is edema of the triquetrum associated with a dorsal fracture. No effusion. There is dorsal tilt of the lunate. The posterior scapholunate ligament is possibly partially torn. There is tenosynovitis of the extensor carpi radialis longus and brevis. No triangular fibrocartilage complex tears. The flexor retinaculum is intact. Intact median and ulnar nerves. The triangular fibrocartilage appears grossly intact. The rest of the visualized tendons are unremarkable. IMPRESSION: 1. Bone marrow edema distal radius, triquetrum and distal capitate. There is a healed nondisplaced fracture of the distal radius best seen on sagittal images. There is a healing dorsal triquetral fracture. No definite fracture of the capitate. Findings appear to represent bone bruising or degenerative changes at the capitate hamate joint. 2. Dorsal tilt of the lunate suggest dorsal intercalated segment instability. There may be a tear of the posterior scapholunate ligament contributing to this. 3. Remote ulnar styloid fracture. 4. Tenosynovitis of the extensor carpi radialis longus and brevis. This document has been electronically signed by: Leonel Salas MD on 04/11/2025 11:10:25
== END 2025-04-11 09:57 | disposition home or self-care (01) ==
LOC: HO.MRI 09:56
PROVIDERS: PCP Internal Medicine
DX: M79.641 Pain in right hand (principal)
CPT/HCPCS: 73221

== ENCOUNTER 2025-04-15 12:53 | Outpatient (REF) | payer OTHER, SELFPAY ==
[2025-04-13 11:19] VITALS: BP 96/60; BP 96/66; BMI 22.5
--- OUTSIDE RECORDS SUMMARY | 2025-04-15 12:58 | XMS_ITS | Data Portability ---
Author Organization [employer] Address [address] [place] [address] Care Team Providers Care Pilot Plant Research Technician Name Role Phone HIM CCA Primary Care Provider Assessment Encounter Date Assessment Date Assessment LastModified by Organization Details LastModified Time 03/27/2024 03/27/2024 I provided real -time medical direction via phone for this encounter, and was available for additional phone based assistance as needed. I have reviewed and agree with the Assessment and Plan as documented by the Veterinary Surgeon. We discussed the diagnostic uncertainty of home [...] for evaluation and management. Report called to [facility] ER [email or web address] Not available 03/27/2024 13:41:34 Plan of Treatment [...] 6 RxNorm Radha Fernández MD [address] [facility],[address], [place], [address] [facility] [employer] 13:34:28 Medications Name Sig Start Date Stop [...] 4 114 /min 20 /min 121.92 cm 82147 g 94 % 94 % 98.8 [degF] [...] SNOMED-CT Code Diagnosis ICD10 Code Diagnosis Note [id number] Radha Fernández MD Main - [address] [address] 03/27/2024 13:23:51 03/29/2024 11:48:16 Diverticulitis 430124326 K57.92 Health Concerns Section Related Observation LastModified by Organization Detai ls LastModified Time None Recorded Concern Status LastModified by Organization Details LastModified Time None Recorded Advance Directives Directive None Recorded Payers Insurance Date Sequence Insurance Name Policy Number Policy Charles Covered Member ID Charles Member ID Guarantor Name 03/29/[address] [facility] - DOS ON OR AFTER 2023 - DUAL ELIGIBLE - RESIDENTIAL OPTIONS AND ONE CARE (MEDICARE REPLACEMENT/ADV ANTAGE - HMO) Sosa Joiner [id number] Sosa Joiner Notes Date Note Type Note [...] was seen in the ER 03/25 at [facility] -CT attached. She has been complaining of a frontal headache -CT head and neck were negative for acute disease in the ER -she is complaining of severe abdominal pain Veterinary Surgeon POC Test Results from Amy Montana - [facility] Blood Glucose Measurement (1) [14:39] Blood Glucose: 149 mg/dL .................... .................... .................... .................... .................... .................... .................... . Veterinary Surgeon Note From Amy Montana: Sent to a [...] d CT scans performed (results uploaded to [facility]) at [place] ED on 03/25 and prescribed Levofloxacin 500mg [...] prefer to go to ED. [facility] consulted and orders BG as pt does not check BG regularly. Pt states she usually uses CGM, but ran out, and hasn't used glucometer for over 1 week. B; [facility] [place] report to [facility] ED. 911 contacted and pt care transferred to [facility] crew. Pt transported to [facility] ED via [facility]. .................... .................... .................... .................... .................... .................... .................... . Disposition: Fulfilled Radha Fernández MD [address] [facility],[address], [place], [address], [employer] 03/27/2024 14:55:37 OBGyn Episode No OBEpisode recorded.
[2025-04-15 13:17] LABS: MANUAL DIFF FLAG NO
[2025-04-15 13:29] LABS: Basophils Absolute Auto 0.1 X10*3/uL (0.0-0.2); Basophils Percent Auto 0.8 % (0-2); Eosinophils Absolute Auto 0.1 X10*3/uL (0.0-0.4); Eosinophils Percent Auto 1.1 % (0-4); Hematocrit 37.7 % (37.0-47.0); Hemoglobin 12.2 g/dl (12.0-16.0); Imm Gran Abs Auto 0.02 X10*3/uL (0.00-0.03); Imm Gran Pct Auto 0.3 % (0.0-0.4); Lymphocytes Absolute Auto 2.5 X10*3/uL (1.2-4.9); Lymphocytes Percent Auto 38.1 % (20-40); Mean Corpuscular HGB Conc 32.4 g/dl (31.0-35.0); Mean Corpuscular Hemoglobin 28.6 pg (27.0-33.0); Mean Corpuscular Volume 88.5 fL (80.0-98.0); Mean Platelet Volume 10.6 fL (9.4-12.3); Monocytes Absolute Auto 0.5 X10*3/uL (0.1-1.2); Monocytes Percent Auto 7.2 % (2-11); Neutrophils Absolute Auto 3.5 x10*3/uL (2.0-8.3); Neutrophils Percent Auto 52.5 % (45-73); Platelet Count 317 X10*3/uL (160-400); Red Blood Count 4.26 X10*6/uL (4.20-5.50); Red Cell Distribution Width 15.4 % (11.0-16.0); White Blood Count 6.7 X10*3/uL (4.8-10.8)
[2025-04-15 14:11] LABS: Alanine Aminotransferase 9 U/L (0-31); Albumin Level 4.2 g/dL (3.5-5.0); Alkaline Phosphatase 60 U/L (39-117); Anion Gap 12 (12-20); Aspartate Amino Transferase 18 U/L (5-31); Bilirubin Total 0.4 mg/dL (0.0-1.0); Blood Urea Nitrogen 10 mg/dL (9-16); C Reactive Protein 0.82 mg/dL (< or = 0.50); Calcium 9.7 mg/dL (8.4-10.2); Carbon Dioxide 27 mmol/L (22-29); Chloride 107 mmol/L (96-108); Estimated Glomerular Filt Rate > 60; Glucose Random 85 mg/dL (60-115); Potassium 4.1 mmol/L (3.3-5.1); Sodium 142 mmol/L (135-145); Total Protein 7.3 g/dL (6.5-8.0)
[2025-04-15 14:13] LABS: Erythrocyte Sedimentation Rate 17 MM/HR (0-20)
[2025-04-15 14:21] LABS: HBS Num1 0.92 mIU/mL (0-7.99); HBsAGNum1 0.28 S/CO (0.00-0.99); Hepatitis A Antibody IgM 0.49 Index (0-0.79); Hepatitis B Core Antibody Nonreactive (Nonreactive); Hepatitis B Surface Antigen Negative (Negative); ~HepC Num1 0.22 S/CO (0.00-0.79); ~Hepatitis A Antibody IgM Nonreactive (Nonreactive); ~Hepatitis B Surface Antibody NONREACTIVE (Nonreactive); ~Hepatitis C Antibody Nonreactive (Nonreactive)
[2025-04-18 19:09] LABS: TS Negative Control Passed; TS Panel A 0; TS Panel B 0; TS Positive Control Passed; TSpotTB Negative (Negative)
== END 2025-04-15 12:54 | disposition home or self-care (01) ==
LOC: HO.LAB 12:53
PROVIDERS: Absent Provider Internal Medicine; PCP Internal Medicine; Visit Provider Student in an Organized Health Care Education/Training Program
DX: M05.9 Rheumatoid arthritis with rheumatoid factor, unspecified (principal); Z79.631 Long term (current) use of antimetabolite agent; Z79.899 Other long term (current) drug therapy
CPT/HCPCS: 36415; 80053; 85025; 85652; 86140; 86481; 86704; 86706; 86709; 86803; 87340

== ENCOUNTER 2025-04-21 15:40 | Outpatient (AMB) | payer OTHER, SELFPAY ==
[2025-04-13 11:19] VITALS: BP 96/60; BP 96/66; BMI 22.5
--- OUTSIDE RECORDS SUMMARY | 2025-04-21 15:46 | XMS_ITS | Data Portability ---
Author Organization [email or web address] [place] [facility] [employer] Address [address] [place] [phone] Care Team Providers Care Skip Hoist Operator Name Role Phone HIM CCA Primary Care Provider [phone] Assessment Encounter Date Assessment Date Assessment LastModified by Organization Details LastModified Time 03/27/2024 03/27/2024 I provided real -time medical direction via phone for this encounter, and was available for additional phone based assistance as needed. I have reviewed and agree with the Assessment and Plan as documented by the Digital Art Director. We discussed the diagnostic uncertainty of home [...] for evaluation and management. Report called to [facility] ER [email or web address] Not available 03/27/2024 13:41:34 Plan of Treatment [...] 03/27/2024 6 RxNorm Radha Fernández MD [address] [facility],[address], [place], [address] [facility] [email or web address] 13:34:28 Medications Name Sig Start Date Stop [...] 4 114 /min 20 /min 121.92 cm 17529 g 94 % 94 % 98.8 [degF] [...] SNOMED-CT Code Diagnosis ICD10 Code Diagnosis Note [id number] Radha Fernández MD Main - [address] [address] 03/27/2024 13:23:51 03/29/2024 11:48:16 Diverticulitis [id number] K57.92 Health Concerns Section Related Observation LastModified by Organization Detai ls LastModified Time None Recorded Concern Status LastModified by Organization Details LastModified Time None Recorded Advance Directives Directive None Recorded Payers Insurance Date Sequence Insurance Name Policy Number Policy Charles Covered Member ID Charles Member ID Guarantor Name 03/29/2024 1 [facility] - DOS ON OR AFTER 2023 - DUAL ELIGIBLE - SHELTER OPTIONS AND ONE CARE (MEDICARE REPLACEMENT/ADV ANTAGE - HMO) Sosa Joiner [id number] Sosa Joiner Notes Date Note Type Note [...] was seen in the ER 03/25 at [facility] -CT attached. She has been complaining of a frontal headache -CT head and neck were negative for acute disease in the ER -she is complaining of severe abdominal pain Digital Art Director POC Test Results from Amy Montana - [facility] Blood Glucose Measurement (1) [14:39] Blood Glucose: 149 mg/dL .................... .................... .................... .................... .................... .................... .................... . Digital Art Director Note From Amy Montana: Sent to a [...] d CT scans performed (results uploaded to [facility]) at [place] ED on 03/25 and prescribed Levofloxacin 500mg [...] narcotics for pain during flares. [facility]. [facility]/venous blood draw, stating she would prefer to go to ED. [facility] consulted and orders BG as pt does not check BG regularly. Pt states she usually uses CGM, but ran out, and hasn't used glucometer for over 1 week. B; [facility] calls report to [facility] ED. 911 contacted and pt care transferred to [facility] crew. Pt transported to [facility] ED via [facility]. .................... .................... .................... .................... .................... .................... .................... . Disposition: Fulfilled Radha Fernández MD [address] [facility], [place], [address], [employer] 03/27/2024 14:55:37 OBGyn Episode No OBEpisode recorded.
--- NOTE | 2025-04-21 15:52 | MHC.PC.OV ---
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: No Accompanied by: Self / Same As Patient Allergies methylprednisolone Allergy (Severe, Verified 04/21/25 16:34) Rash from Solu-Medrol shellfish derived Allergy (Intermediate, Verified 04/21/25 16:34) Hives etanercept [From Enbrel] Adverse Reaction (Severe, Verified 04/21/25 16:34) Facial Swelling metformin Adverse Reaction (Severe, Verified 04/21/25 16:34) Diarrhea metronidazole [From FLAGYL] Adverse Reaction (Severe, Verified 04/21/25 16:34) Diarrhea prednisone Adverse Reaction (Intermediate, Verified 04/21/25 16:34) hallucinations, more than 20 mg doses Medication List - Last Reconciled 04/21/25 by Adela Wasserman MD albuterol sulfate 90 mcg/actuation 2 inhalations inhalation Q4H PRN aspirin 81 mg PO DAILY blood pressure monitor As directed blood pressure test kit-medium As directed blood sugar diagnostic (FreeStyle Lite Strips) Use 1 test strip three times a day daywzbojby-bkhxyohzzyror-htcj 50-325-40 mg 1 tab PO Q6H PRN [clamp on tub safety rail As directed] clopidogrel 75 mg PO DAILY dulaglutide (Trulicity) 1.5 mg (0.5 mL) subcut TH@0900 [ez last model department supervisor bed assist support As directed] famotidine 20 mg PO BEDTIME 90 days jqtszvrleiz-sndxzxpfk-qynoudes 200-62.5-25 mcg (Trelegy Ellipta) 1 ea inhalation DAILY folic acid 1 mg PO DAILY hydroxychloroquine (Plaquenil) 200 mg PO DAILY lancets (FreeStyle Lancets) Use 1 lancet once a day lithium carbonate 150 mg PO .DAILY @0900 melatonin 1 mg PO BEDTIME methotrexate sodium 15 mg (6 x 2.5 mg) PO QWEEK metoclopramide HCl (Reglan) 5 mg PO TID PRN 30 days metoprolol succinate ER 25 mg PO DAILY ondansetron 4 mg PO Q8H PRN pantoprazole 40 mg PO DAILY pen needle, diabetic USE 1 PEN NEEDLE 6 TIMES A DAY pregabalin 200 mg PO BID Shower Chair As directed simethicone 125 mg PO DAILY PRN tramadol 50 mg PO Q6H PRN trazodone 100 mg PO BEDTIME 90 days trazodone 50 mg PO BEDTIME PRN 90 days walker with seat Tobacco use date assessed: 12/15/24 Dental Screening Dental Screen Date: 12/15/24 HPI HPI Comments History of Present Illness Details The patient is a 64-year-old female presenting for follow-up care for a remote ulnar styloid fracture with an associated tenosynovitis. The fracture stemmed from an accidental fall and has been managed with several hard casts over the past weeks. The injury revision stems primarily from ongoing concerns of tenosynovitis. Her medical history is significant for Type 2 Diabetes Mellitus, controlled with Trulicity and corroborated by an A1c level of 6.9%. She expresses understanding of her diabetes management and remains compliant with her treatment plan. Further, she has rheumatoid arthritis, managed with Plaquenil and methotrexate. She reports chronic joint pain managed under rheumatological guidance. Her psychiatric history of bipolar disorder is currently under control with continued medication. She acknowledges better mood stability with treatment. Social factors impact her health, particularly her return to smoking. She currently smokes three cigarettes daily but expresses an intent to reduce use. Her gastroesophageal reflux disease symptoms, managed with pantoprazole, have decreased, with occasional assistance from metoclopramide for associated nausea. 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 Acute respiratory distress Tendonitis of ankle or foot Cough Stable angina Anxiety HLD (hyperlipidemia) HTN (hypertension) COPD exacerbation Hyperkalemia Atherosclerotic cardiovascular disease Hospital discharge follow-up Colitis CVA (cerebral vascular accident) (~2018) Breast pain, right Rash Bloody diarrhea PAD (peripheral artery disease) Hyperlipidemia LDL goal <100 COPD (chronic obstructive pulmonary disease) Infiltrating ductal carcinoma of left breast, stage 2 Insomnia Dyslipidemia Bipolar 1 disorder, depressed Cough Restrictive airway disease Hypothyroid IDDM (insulin dependent diabetes mellitus) Vitamin D deficiency Osteoporosis Breast cancer Hyperparathyroidism Thyroid nodule T2DM (type 2 diabetes mellitus) Depression Fibromyalgia Seropositive rheumatoid arthritis Reactive airways dysfunction syndrome Allergic rhinitis Irritable bowel Anxiety Bronchial asthma Diabetes type 2, uncontrolled Surgical History S/P laparoscopic colectomy (04/15/24) Hx of sigmoidoscopy History of bronchoscopy Hx of endoscopy H/O cardiac catheterization History of lumpectomy of left breast History of pubovaginal sling History of esophagogastroduodenoscopy (EGD) History of tubal ligation History of colonoscopy History of bunionectomy of both great toes H/O: hysterectomy Family History Mother Diabetes HTN (hypertension) Uterus cancer Malignant tumor of head Breast cancer Father Diabetes HTN (hypertension) CVD (cardiovascular disease) Heart problem Maternal Aunt Breast cancer Brother Myocardial infarction S/P CABG x 4 Family/Other FH: mental illness Family/Other Lung cancer Other Mental health disorder Social History (Updated 04/21/25 @ 16:41 by Adela Wasserman MD) Household Members: Family Household Members Other:: sister Housing: House Are you a primary resident care manager to a significant other at home: No Do you presently have visiting nurse or other home services: No Unable to assess alcohol history related to: Unknown Alcohol intake: never Comment: Low fall Patient Tobacco Use Status: Current everyday Tobacco user Tobacco use type: Cigarette Cigarette Packs Per Day: 0.5 Cigarettes Per Day: 3 Years Smoked: 48 e-Cigarette/Vaping Use: Never Used Second Hand Smoke Exposure: No Substance Use Type: Marijuana Advance Directives Date on File: 12/22/21 service: No Current occupational status: disabled Current occupation: rt handed Cognitive needs: No Hearing needs: No Vision needs: Yes Questionnaire PHQ-9 Over the last 2 weeks, how often have you been bothered by any of the following problems? 1. Little interest or pleasure in doing things: not at all 2. Feeling down, depressed, or hopeless: not at all 3. Trouble falling or staying asleep, or sleeping too much: several days 4. Feeling tired or having little energy: several days 5. Poor appetite or overeating: more than half the days 6. Feeling bad about yourself - or that you are a failure or have let yourself or your family down: not at all 7. Trouble concentrating on things, such as reading the newspaper or watching television: not at all 8. Moving or speaking so slowly that other people could have noticed. Or the opposite - being so fidgety or restless that you have been moving around a lot more than usual: not at all 9. Thoughts that you would be better off or of hurting yourself in some way: not at all Total score: 4 Depression Screening Interpretation: Positive Depression Screening Follow-up: Existing condition and Follow-up Visit Requested Depression Screening Done: Yes 00683 - PHQ-9 Billing: Yes Source: Developed by Drs. Hernandez Norris, Gissell Solorzano, Gilmar Szymanski and colleagues, with an educational chris from [employer]. Thrive Questionnaire Date Thrive assessed: 04/21/25 I am a: Patient What is your living situation today?: I have a steady place to live Within the past 12 months, did the food you bought not last and you didn't have the money to get more?: Never true Within the past 12 months, did you worry whether your food would run out before you got money to buy more?: Never true Do you have trouble paying for medicines?: No Do you have trouble getting transportation to medical appointments?: No Do you have trouble paying your heating and electricity bill?: No Do you have trouble taking care of your child, family member or friend?: No Do you have trouble with day-to-day activities such as bathing, preparing meals, shopping, managing finances, etc.?: No Are you currently unemployed and looking for a job?: I choose not to answer this question Are you interested in more education?: I choose not to answer this question Please select the resources that you would like help with: None Currently or been in a relationship where the following occur: I choose not to answer THRIVE Score: 0 AUDIT C Alcohol Use Questionnaire (AUDIT-C) 1. How often do you have a drink containing alcohol?: Never Total Score: 0 Score Reviewed/Action Taken: No FLAVIA-7 AMB Questionnaire FLAVIA-7 Date FLAVIA - 7 assessed: 04/21/25 Feeling nervous, anxious, or on edge: 0 = Not at all Not being able to stop or control worryin = Not at all Worrying too much about different things: 0 = Not at all Trouble relaxin = Not at all Being so restless that it is hard to sit still: 0 = Not at all Becoming easily annoyed or irritable: 0 = Not at all Feeling afraid as if something awful might happen: 0 = Not at all Total FLAVIA-7 score (0-4 normal; 5-9 mild; 10-14 moderate; 15-21 severe): 0 Source: Developed by Drs. Hernandez Norris, Gissell Solorzano, Gilmar Szymanski and colleagues, with an educational chris from [employer]. FLAVIA-7 Assessment Billing FLAVIA-7 Assessment Tool: FLAVIA-7 Assessment 78223 Review of Systems Const All systems reviewed & are unremarkable except as noted in HPI and below Card Denies chest pain at rest, Denies chest pain with activity, Denies edema, Denies irregular heart rhythm, Denies claudication, Denies dyspnea, Denies dyspnea on exertion, Denies orthopnea, Denies paroxysmal nocturnal dyspnea and Denies slow heart rate Resp Denies cough, Denies dyspnea and Denies dyspnea on exertion GI Denies abdominal pain, Denies change in bowel habits, Denies excessive flatus, Denies nausea and Denies vomiting Denies urinary incontinence, Denies urinary hesitancy and Denies urinary urgency Neuro Denies lack of coordination Physical exam (Primary Care) Vital Signs: Last Vital Signs BP 110/62 04/21/25 15:56 BMI result Body Mass Index 21.5 Tobacco/Smoking Status: Tobacco use Status Tobacco use date assessed 12/15/24 04/21/25 15:53 Patient Tobacco Use Status Current everyday Tobacco 04/21/25 16:41 Tobacco use type Cigarette 04/21/25 16:41 e-Cigarette/Vaping Use Never Used 04/21/25 16:41 PHQ-9: PHQ-9 Score PHQ-9: Total score 4 04/21/25 16:37 Depression Screening Interpretation: Positive Depression Screening Follow-up: Existing condition and Follow-up Visit Requested Thrive Assessment: Date of Thrive Assessment Date Thrive assessed 04/21/25 04/21/25 15:53 Currently or been in a relationship where the following occur: I choose not to answer Resp Effort & Inspection: normal respiratory effort Auscultation: clear to auscultation bilaterally Cardio Jugular venous distension: no JVD Rate: regular rate Rhythm: regular rhythm Heart sounds: S1 normal heart sound present and S2 normal heart sound present Extrem General: Yes full ROM Results AMB Hemoglobin A1c AMB Hemoglobin A1c 6.9 % Last Edit by KENNY Coronel on 04/21/25 16:04 AMB Hemoglobin A1c previously reported as 6.5 Lana Paniagua 04/21/25 16:04 Results Reviewed Results Reviewed: Laboratory Last Values Hgb A1c (Clinic) 6.9 % (4.0-6.0) H 04/21/25 15:51 Coding Level of Care Code Est Pt Level 4 (71887) Complex EM visit Add On G2211 Diagnoses Fracture of triquetral bone of right wrist S62.111A Lumbar degenerative disc disease M51.36 Type 2 diabetes mellitus without complication, without long-term current use of insulin E11.9 Diabetes mellitus type: type 2 Diabetes mellitus assistant terminal manager insulin use: without long-term use Diabetes mellitus complication status: without complication longterm (current) use of insulin Z79.4 Chronic obstructive pulmonary disease, unspecified COPD type J44.9 COPD type: unspecified COPD Primary hypertension I10 Hypertension type: primary hypertension Bipolar 1 disorder, depressed F31.9 Seropositive rheumatoid arthritis M05.9 Additional Codes FLAVIA-7 Assessment Billing - FLAVIA-7 Assessment Tool: FLAVIA-7 Assessment 61599 ([id number]) PHQ-9 - 13771 - PHQ-9 Billing: Yes ([id number]) Time Spent (min) 24 Assessment & Plan Assessment & Plan (1) Fracture of triquetral bone of right wrist: Code(s): S62.111A - Displaced fracture of triquetrum [cuneiform] bone, right wrist, initial encounter for closed fracture Category: Medical (2) Lumbar degenerative disc disease: Code(s): M51.36 - Other intervertebral disc degeneration, lumbar region Category: Medical (3) Diabetes mellitus: Code(s): E11.9 - Type 2 diabetes mellitus without complications Category: Medical Qualifiers: Diabetes mellitus type: type 2 Diabetes mellitus assistant terminal manager insulin use: without long-term use Diabetes mellitus complication status: without complication Qualified Code(s): E11.9 - Type 2 diabetes mellitus without complications (4) longterm (current) use of insulin: Code(s): Z79.4 - ferry terminal agent (current) use of insulin Category: Medical (5) COPD (chronic obstructive pulmonary disease): Code(s): J44.9 - Chronic obstructive pulmonary disease, unspecified Category: Medical Qualifiers: COPD type: unspecified COPD Qualified Code(s): J44.9 - Chronic obstructive pulmonary disease, unspecified (6) HTN (hypertension): Code(s): I10 - Essential (primary) hypertension Category: Medical Qualifiers: Hypertension type: primary hypertension Qualified Code(s): I10 - Essential (primary) hypertension (7) Bipolar 1 disorder, depressed: Code(s): F31.9 - Bipolar disorder, unspecified Category: Medical (8) Seropositive rheumatoid arthritis: Comment: +++RF+++CCP dx around 1999 [place]: 04/2021- 06/2022- stopped due to severe COPD requiring long standing azithromycin Plaquenil: approx. 02/2021-May 2021 self stopped Enbrel: approx. 02/2021 ordered after cleared for hep A, stopped due to allergy Sulfasalazine: approx. 02/2019- 02/2021 - restarted 09/27/2022 -04/2023 stopped due to heaedache and nausea Methorexate: approx. 11/2016-12/2018 started in [facility]. Diagnosed with breast CA so methotrexate discontinued. Changed to sulfsalazine 500mg 2 tabs BID to prevent lung fibrosis as patient was receiving radiation therapy for her breast CA. Completed Radiation therapy February 2019. OnTamoxifen but had side effects so was started on Letrozole in May 2019. MTX restarted 02/2024 Xeljanz: approx. 03/2018-04/2018 Cimzia: aprrox.05/2017- did not take Humira: dates unknown Leflunomide: many years ago, then approx. 08/2020-02/2021 Code(s): M05.9 - Rheumatoid arthritis with rheumatoid factor, unspecified Category: Medical Plan Continued management of the remote ulnar styloid fracture involves orthopedic follow-up and surgical consultation consideration for tenosynovitis. Diabetes mellitus control remains stable under current treatment, with patient compliance critical for maintaining her A1c levels. Rheumatoid arthritis management continues with current medication regimens. The patient is encouraged to pursue smoking cessation strategies to reduce health risks associated with continued tobacco use, potentially exploring counseling and pharmacotherapy avenues. HERD symptoms remain managed with pantoprazole and occasional use of metoclopramide, ensuring control over reflux symptoms. Patient was informed and verbally consented to the use of an ambient scribe for clinic note documentation during this visit. During our visit, we reviewed the management plan for her remote ulnar styloid fracture, including possible consultation with an orthopedic surgeon for tenosynovitis, if needed. We discussed the stable diabetes management, emphasizing the importance of continuing her current regimen to maintain her A1c levels. I emphasized the risks associated with continued smoking and suggested she consider cessation programs and pharmacologic support to assist in quitting. Pantoprazole effectively controls GERD symptoms, complemented by metoclopramide for breakthrough nausea. We also noted her adherence to psychiatric medications for bipolar disorder, with advice to continue her current regimen for mood stability. Orders: Orders AMB Hemoglobin A1c Today E11.9 - Type 2 diabetes mellitus without complications Lipid Panel 4 Months E78.5 - Hyperlipidemia, unspecified Vitamin D 25-OH Total 4 Months E55.9 - Vitamin D deficiency, unspecified Comprehensive [place]. Panel Fast 4 Months I21.3 - ST elevation (STEMI) myocardial infarction of unspecified site XR lumbar spine 2-3V Today M54.50 - Low back pain, unspecified Microalbumin, Random (w Creat) 4 Months R80.9 - Proteinuria, unspecified Patient Instructions: - Continue with current diabetes medications as prescribed. - Wear current cast for fracture management; follow-up with orthopedic physician as advised. - Take all rheumatology medications as prescribed. - Continue with pantoprazole for GERD and metoclopramide as needed. - Work on smoking reduction and consider enrolling in cessation programs or use cessation aids. - Follow up with psychiatry for medication management. - Report any new or worsening symptoms to the healthcare provider promptly.
[2025-04-21 15:56] VITALS: BP 110/62; BMI 21.5
== END 2025-04-21 16:45 | disposition home or self-care (01) ==
LOC: HO.HMCH 15:41
PROVIDERS: PCP Internal Medicine; Visit Provider Internal Medicine
DX: S62.111A Displaced fracture of triquetrum [cuneiform] bone, right wrist, initial encounter for closed fracture (principal); E11.9 Type 2 diabetes mellitus without complications; Z79.4 Long term (current) use of insulin; J44.9 Chronic obstructive pulmonary disease, unspecified; F31.9 Bipolar disorder, unspecified; M05.9 Rheumatoid arthritis with rheumatoid factor, unspecified; M51.369 Other intervertebral disc degeneration, lumbar region without mention of lumbar back pain or lower extremity pain; I10 Essential (primary) hypertension

== ENCOUNTER → 2025-04-21 15:40 | Outpatient (BNVA) | payer OTHER, SELFPAY ==
[2025-04-13 11:19] VITALS: BP 96/60; BP 96/66; BMI 22.5
== END ==
PROVIDERS: PCP Internal Medicine; Visit Provider Internal Medicine
DX: E11.9 Type 2 diabetes mellitus without complications (principal); M51.369 Other intervertebral disc degeneration, lumbar region without mention of lumbar back pain or lower extremity pain; M54.9 Dorsalgia, unspecified; F31.9 Bipolar disorder, unspecified; K21.9 Gastro-esophageal reflux disease without esophagitis; F17.210 Nicotine dependence, cigarettes, uncomplicated; J44.9 Chronic obstructive pulmonary disease, unspecified; M05.9 Rheumatoid arthritis with rheumatoid factor, unspecified; E55.9 Vitamin D deficiency, unspecified; I21.3 ST elevation (STEMI) myocardial infarction of unspecified site; R80.9 Proteinuria, unspecified; M51.360 Other intervertebral disc degeneration, lumbar region with discogenic back pain only; S62.111A Displaced fracture of triquetrum [cuneiform] bone, right wrist, initial encounter for closed fracture; X58.XXXA Exposure to other specified factors, initial encounter; Y93.9 Activity, unspecified; Y92.9 Unspecified place or not applicable; Y99.9 Unspecified external cause status; Z79.4 Long term (current) use of insulin; Z79.899 Other long term (current) drug therapy
CPT/HCPCS: 83036; 96127; 99212

== ENCOUNTER 2025-04-27 08:42 | Outpatient (AMB) | payer OTHER, SELFPAY ==
[2025-04-13 11:19] VITALS: BP 96/60; BP 96/66; BMI 22.5
--- OUTSIDE RECORDS SUMMARY | 2025-04-27 09:04 | XMS_ITS | Data Portability ---
Author Organization [employer], [facility] Address [address] [place] [id number] Care Team Providers Care Tobacco Shaker Name Role Phone HIM CCA Primary Care Provider Assessment Encounter Date Assessment Date Assessment LastModified by Organization Details LastModified Time 03/27/2024 03/27/2024 I provided real -time medical direction via phone for this encounter, and was available for additional phone based assistance as needed. I have reviewed and agree with the Assessment and Plan as documented by the Supervisor Hanging And Trimming. We discussed the diagnostic uncertainty of home [...] for evaluation and management. Report called to [facility] ER Not available 03/27/2024 13:41:34 Plan of Treatment [...] 03/27/2024 6 RxNorm Radha Fernández MD [address] [facility],[address], [place], [address] [facility] [employer] 13:34:28 Medications Name Sig Start Date Stop [...] 4 114 /min 20 /min 121.92 cm 50900 g 94 % 94 % 98.8 [degF] [...] SNOMED-CT Code Diagnosis ICD10 Code Diagnosis Note [id number] Radha Fernández MD Main - [address] [id number] 03/27/2024 13:23:51 03/29/2024 11:48:16 Diverticulitis [id number] K57.92 Health Concerns Section Related Observation LastModified by Organization Detai ls LastModified Time None Recorded Concern Status LastModified by Organization Details LastModified Time None Recorded Advance Directives Directive None Recorded Payers Insurance Date Sequence Insurance Name Policy Number Policy Charles Covered Member ID Charles Member ID Guarantor Name 03/29/2024 1 [facility] - DOS ON OR AFTER 2023 - DUAL ELIGIBLE - INTERMEDIATE OPTIONS AND ONE CARE (MEDICARE REPLACEMENT/ADV ANTAGE - HMO) Sosa Joiner [id number] Sosa Joiner Notes Date Note Type Note [...] was seen in the ER 03/25 at [facility] -CT attached. She has been complaining of a frontal headache -CT head and neck were negative for acute disease in the ER -she is complaining of severe abdominal pain Supervisor Hanging And Trimming POC Test Results from Amy [facility] - [facility] Blood Glucose Measurement (1) [14:39] Blood Glucose: 149 mg/dL .................... .................... .................... .................... .................... .................... .................... . Supervisor Hanging And Trimming Note From Amy Montana: Sent to a [...] d CT scans performed (results uploaded to [facility]) at [place] ED on 03/25 and prescribed Levofloxacin 500mg [...] narcotics for pain during flares. [facility]. Pt declines IV access/venous blood draw, stating she would prefer to go to ED. [facility] consulted and orders BG as pt does not check BG regularly. Pt states she usually uses CGM, but ran out, and hasn't used glucometer for over 1 week. B; [facility] calls report to [facility] ED. 911 contacted and pt care transferred to [facility] crew. Pt transported to [facility] ED via [facility]. .................... .................... .................... .................... .................... .................... .................... . Disposition: Fulfilled Radha Fernández MD [address] [facility],[address], [place], [phone], [facility] - ReissuedEDD TOLBERT 03/27/2024 14:55:37 OBGyn Episode No OBEpisode recorded.
--- NOTE | 2025-04-27 09:19 | MHC.OFFVIS ---
Vital Signs 04/27/25 09:24 Height 4 ft 10 in Weight 104 lb 7.986 oz BMI 21.8 BP 102/60 Blood Pressure Location Lt brachial Position Sitting Pulse 74 Pulse Source Pulse Oximeter Pulse Oximetry (%) 98 Oxygen Delivery Method Room Air Intake Visit Reasons: RA Intake Note: Patient presents for RA follow up. Allergies methylprednisolone Allergy (Severe, Verified 04/27/25 09:23) Rash from Solu-Medrol shellfish derived Allergy (Intermediate, Verified 04/27/25 09:23) Hives etanercept [From Enbrel] Adverse Reaction (Severe, Verified 04/27/25 09:23) Facial Swelling metformin Adverse Reaction (Severe, Verified 04/27/25 09:23) Diarrhea metronidazole [From FLAGYL] Adverse Reaction (Severe, Verified 04/27/25 09:23) Diarrhea prednisone Adverse Reaction (Intermediate, Verified 04/27/25 09:23) hallucinations, more than 20 mg doses Medication List - Last Reconciled 04/27/25 by Jeanette Rain MD albuterol sulfate 90 mcg/actuation 2 inhalations inhalation Q4H PRN aspirin 81 mg PO DAILY blood pressure monitor As directed blood pressure test kit-medium As directed blood sugar diagnostic (FreeStyle Lite Strips) Use 1 test strip three times a day qbiicjyxwe-oaqqypkawmnso-colz 50-325-40 mg 1 tab PO Q6H PRN [clamp on tub safety rail As directed] clopidogrel 75 mg PO DAILY dulaglutide (Trulicity) 1.5 mg (0.5 mL) subcut TH@0900 [ez loom checker bed assist support As directed] famotidine 20 mg PO BEDTIME 90 days zzdfdwuxlzn-sefawkroo-rfyisvxu 200-62.5-25 mcg (Trelegy Ellipta) 1 ea inhalation DAILY folic acid 1 mg PO DAILY hydroxychloroquine (Plaquenil) 200 mg PO DAILY lancets (FreeStyle Lancets) Use 1 lancet once a day lithium carbonate 150 mg PO .DAILY @0900 melatonin 1 mg PO BEDTIME methotrexate sodium 15 mg (6 x 2.5 mg) PO QWEEK metoclopramide HCl (Reglan) 5 mg PO TID PRN 30 days metoprolol succinate ER 25 mg PO DAILY ondansetron 4 mg PO Q8H PRN pantoprazole 40 mg PO DAILY pen needle, diabetic USE 1 PEN NEEDLE 6 TIMES A DAY pregabalin 200 mg PO BID Shower Chair As directed simethicone 125 mg PO DAILY PRN tramadol 50 mg PO Q6H PRN trazodone 100 mg PO BEDTIME 90 days trazodone 50 mg PO BEDTIME PRN 90 days walker with seat HPI Comments Details: Patient is a 64-year-old female with hx of breast cancer completed anastrozole, diabetes complicated by polyneuropathy, hypertension complicated by STEMI 10/2024 with stenting and peripheral arterial disease, hyperlipidemia, bipolar 1 disorder with depression, hyperparathyroidism, osteoporosis on Reclast infusions with Endo, seropositive rheumatoid arthritis and fibromyalgia here today for follow up Interval History: Patient last seen 12/23/2024 with me. At that time she was following up for her rheumatoid arthritis on methotrexate 15 mg weekly. She was complaining of back pain as well as stiffness in her hands with associated swelling. There was some tenderness to palpation of her PIPs of the right hand and so hydroxychloroquine was added to her regimen. Since that visit she unfortunately had a fall in February with subsequent fracture to her wrist. She is currently in a sling and is planning to follow up with Orthopedics because she continued to have wrists pain and had see T imaging showing multiple fractures and tendonitis. She is unable to comment on whether or not the hydroxychloroquine helped her because of her current pain Rheumatologic History: +++RF+++CCP dx around 1999 [place]: 04/2021- 06/2022- stopped due to severe COPD requiring long standing azithromycin Plaquenil: approx. 02/2021-May 2021 self stopped Enbrel: approx. 02/2021 ordered after cleared for hep A, stopped due to allergy Sulfasalazine: approx. 02/2019- 02/2021 - restarted 09/27/2022 -04/2023 stopped due to heaedache and nausea Methorexate: approx. 11/2016-12/2018 started in [facility] [place]. Diagnosed with breast CA so methotrexate discontinued. Changed to sulfsalazine 500mg 2 tabs BID to prevent lung fibrosis as patient was receiving radiation therapy for her breast CA. Completed Radiation therapy February 2019. OnTamoxifen but had side effects so was started on Letrozole in May 2019. MTX restarted 02/2024 Xeljanz: approx. 03/2018-04/2018 Cimzia: aprrox.05/2017- did not take Humira: dates unknown Leflunomide: many years ago, then approx. 08/2020-02/2021 Current Rheumatology Medication(s): Methotrexate 15mg weekly Folic acid 1mg daily Hydroxychloroquine 200mg daily PFSH Medical History CAD (coronary artery disease) NSTEMI (non-ST elevated myocardial infarction) GERD (gastroesophageal reflux disease) Diverticulitis large intestine nursing home (current) use 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 Acute respiratory distress Tendonitis of ankle or foot Cough Stable angina Anxiety HLD (hyperlipidemia) HTN (hypertension) COPD exacerbation Hyperkalemia Atherosclerotic cardiovascular disease Hospital discharge follow-up Colitis CVA (cerebral vascular accident) (~2017) Breast pain, right Rash Bloody diarrhea PAD (peripheral artery disease) Hyperlipidemia LDL goal <100 COPD (chronic obstructive pulmonary disease) Infiltrating ductal carcinoma of left breast, stage 2 Insomnia Dyslipidemia Bipolar 1 disorder, depressed Cough Restrictive airway disease Hypothyroid IDDM (insulin dependent diabetes mellitus) Vitamin D deficiency Osteoporosis Breast cancer Hyperparathyroidism Thyroid nodule T2DM (type 2 diabetes mellitus) Depression Fibromyalgia Seropositive rheumatoid arthritis Reactive airways dysfunction syndrome Allergic rhinitis Irritable bowel Anxiety Bronchial asthma Diabetes type 2, uncontrolled Surgical History S/P laparoscopic colectomy (04/15/24) Hx of sigmoidoscopy History of bronchoscopy Hx of endoscopy H/O cardiac catheterization History of lumpectomy of left breast History of pubovaginal sling History of esophagogastroduodenoscopy (EGD) History of tubal ligation History of colonoscopy History of bunionectomy of both great toes H/O: hysterectomy Family History Mother Diabetes HTN (hypertension) Uterus cancer Malignant tumor of head Breast cancer Father Diabetes HTN (hypertension) CVD (cardiovascular disease) Heart problem Maternal Aunt Breast cancer Brother Myocardial infarction S/P CABG x 4 Family/Other FH: mental illness Family/Other Lung cancer Other Mental health disorder Social History Household Members: Family Household Members Other:: sister Housing: House Are you a primary healthcare business analyst to a significant other at home: No Do you presently have visiting nurse or other home services: No Unable to assess alcohol history related to: Unknown Alcohol intake: never Comment: Low fall Patient Tobacco Use Status: Current everyday Tobacco user Tobacco use type: Cigarette Cigarette Packs Per Day: 0.5 Cigarettes Per Day: 3 Years Smoked: 48 e-Cigarette/Vaping Use: Never Used Second Hand Smoke Exposure: No Substance Use Type: Marijuana Advance Directives Date on File: 12/22/21 service: No Current occupational status: disabled Current occupation: rt handed Cognitive needs: No Hearing needs: No Vision needs: Yes Physical Exam Vital Signs: Last Vital Signs Pulse 74 04/27/25 09:24 BP 102/60 04/27/25 09:24 Pulse Ox 98 04/27/25 09:24 Oxygen Delivery Method Room Air 04/27/25 09:24 BMI result Body Mass Index 21.8 Vital signs reviewed Physical Examination CONSTITUITIONAL Patient alert and cooperative. Well appearing and in no apparent painful distress HEENT Conjunctiva and sclera clear. ?Pupils equal round and reactive to light. ?No lymphadenopathy. ? CHEST/RESPIRATORY SYSTEM Normal respiratory effort and able to speak in complete sentences. ?Clear to auscultation bilaterally. ?No crackles, rales, rhonchi, wheezes heard. CARDIAC SYSTEM Regular rate and rhythm. ?S1 and S2 heard no murmurs. ?Radial pulses intact bilaterally MSK Hands: ?Good loom checker strength bilaterally. No deformities noted. ?Right hand in immobilizing device unable to properly examined Wrists: ?Full range of motion at the wrists without pain. ?No tenderness to palpation or synovitis noted to the wrists. Elbows: Full range of motion without pain. No tenderness, weakness, swelling, increased warmth or erythema. Shoulders: Full range of motion without pain. No tenderness, weakness, swelling, increased warmth or erythema. TTP of the bilateral AC joints Knees: ?Full range of motion. ?No tenderness, swelling, increased warmth or erythema.?Crepitations felt bilaterally Ankles: Full range of motion. ?No tenderness, swelling, increased warmth or erythema.? Feet: ?Negative squeeze test. ?No tenderness to palpation or swelling of the MTPs. Tender points:?No tenderness to palpation of the bilateral trapezius, supraspinatus, greater trochanters, anterior costochondral junctions, bilateral gluteal areas, bilateral suboccipital muscle insertions TTP of midline T spine SKIN Skin intact without rashes. Results Reviewed Results Reviewed: Laboratory Tests 09/24/24 04/15/25 11:56 13:16 WBC 6.7 RBC 4.26 Hgb 12.2 Hct 37.7 Plt Count 317 D ESR 17 Sodium 142 Potassium 4.1 Chloride 107 Carbon Dioxide 27 BUN 10 Creatinine 0.80 AST 18 ALT 9 Alkaline Phosphatase 60 C-Reactive Protein 1.96 H 0.82 H Rheumatology Labs 06/09/19 11:05 Rheumatoid Factor [address] L Spine 01/2025 FINDINGS: Normal curvature of the lumbar spine. Vertebral body heights are maintained. Suture material present along the partially visualized distal sigmoid colon. L5-S1: Mild disc space height loss. Facet joint arthrosis. Mild posterior disc bulge. No significant neural foraminal narrowing. L4-L5: Mild posterior disc bulge. Mild right neural foraminal narrowing. L3-L4: Mild posterior disc bulge. No significant neural foraminal narrowing. L2-L3: Intervertebral disc is normal in height. No significant disc bulge or central canal stenosis. L1-L2: Intervertebral disc is normal in height. No significant disc bulge or central canal stenosis. IMPRESSION: 1. No acute osseous or alignment abnormality of the lumbar spine. 2. Mild degenerative changes of the lumbar spine. CT C Spine 01/2025 FINDINGS: Straightening of the normal cervical lordosis. Vertebral body heights are maintained. Skull base and intracranial structures appear normal. Calcified plaque present at the carotid bulbs bilaterally. C2-C3: Facet joint arthrosis on the left. No significant neural foraminal narrowing. C3-C4: No significant neuroforaminal narrowing or spinal canal stenosis. C4-C5: Facet joint arthrosis on the right. No significant neural foraminal narrowing. C5-C6: Anterior marginal osteophytes. Facet joint arthrosis on the right. No significant neural foraminal narrowing. C6-C7: Anterior marginal osteophytes. IMPRESSION: 1. Straightening of the normal cervical lordosis. 2. Mild cervical spondylosis CT T Spine 01/2025 FINDINGS: Normal curvature of the thoracic spine. No evidence of vertebral body subluxation. Vertebral body heights are maintained. The thoracic disc spaces are preserved. Small anterior marginal osteophytes along the mid to lower thoracic spine. Schmorl's node at the superior endplate of T11. Mild facet joint arthrosis T8-T9, T9-T10 and T10-T11. Coronary artery calcifications and/or stents present within the LAD and circumflex. IMPRESSION: 1. No acute osseous or alignment abnormality of the thoracic spine. 2. Mild degenerative changes of the thoracic spine. Assessment & Plan Assessment & Plan (1) Seropositive rheumatoid arthritis: Comment: +++RF+++CCP dx around 1999 [place]: 04/2021- 06/2022- stopped due to severe COPD requiring long standing azithromycin Plaquenil: approx. 02/2021-May 2021 self stopped Enbrel: approx. 02/2021 ordered after cleared for hep A, stopped due to allergy Sulfasalazine: approx. 02/2019- 02/2021 - restarted 09/27/2022 -04/2023 stopped due to heaedache and nausea Methorexate: approx. 11/2016-12/2018 started in [facility] [place]. Diagnosed with breast CA so methotrexate discontinued. Changed to sulfsalazine 500mg 2 tabs BID to prevent lung fibrosis as patient was receiving radiation therapy for her breast CA. Completed Radiation therapy February 2019. OnTamoxifen but had side effects so was started on Letrozole in May 2019. MTX restarted 02/2024 Xeljanz: approx. 03/2018-04/2018 Cimzia: aprrox.05/2017- did not take Humira: dates unknown Leflunomide: many years ago, then approx. 08/2020-02/2021 Code(s): M05.9 - Rheumatoid arthritis with rheumatoid factor, unspecified Category: Medical Plan: #Seropositive RA Patient is a 64-year-old female with seropositive rheumatoid arthritis Unable to evaluate if adding the Plaquenil helped with her main 1st due to her current wrist fracture. Recommending she follow up with Orthopedics for further evaluation. We will continue the regimen and follow up with her in 4 months. Plan - Plaquenil 200mg daily - Mtx 15mg weekly - Folic acid 1mg daily - RTC 4 months - Labs before visit: CBC, CMP, ESR, CRP (2) Thoracic spine pain: Code(s): M54.6 - Pain in thoracic spine Category: Medical Plan: #Thoracic and Cervical Pain Patient complaining of thoracic and C-spine pain. X-rays without any evidence of fracture but there is note made of degenerative disc disease with endplate osteophyte formation and multilevel disc space narrowing. CT of the spine showed degenerative disease as well as muscle tension with straightening of the normal cervical lordosis. 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 Limit alcohol and avoid Bactrim ? Monitoring: ?CBC, BMP, LFTs every 3-4 months and hepatitis serologies as needed (4) Long-term use of hydroxychloroquine: Code(s): Z79.899 - Other terminal computer operator (current) drug therapy Plan: #Long-term Use of Hydroxychloroquine Discussed with patient the risks and benefits of hydroxychloroquine in managing the rheumatic condition Benefits include: - Reduced pain, reduce mortality, maintenance of remission and reduction of flares Risks include: - GI upset, skin hyperpigmentation, retinal toxicity (especially after more than 5 years of use), myopathy Advised yearly ophthalmology visits We will refer to Ophthalmology at next visit Plan I spent 30 minutes reviewing the record and labs, taking a history, examining the patient, discussing the treatment plan and documenting in the medical record Orders: Orders XR DEXA axial skeleton 04/27/25 M81.0 - Age-related osteoporosis without current pathological fracture XR DEXA appendicular skeleton 04/27/25 M81.0 - Age-related osteoporosis without current pathological fracture Medications: Changed From methotrexate sodium 15 mg (6 x 2.5 mg) PO QWEEK 72 tabs 1RF M05.9 - Rheumatoid arthritis with rheumatoid factor, unspecified To methotrexate sodium 17.5 mg (7 x 2.5 mg) PO QWEEK 90 days 91 tabs 1RF M05.9 - Rheumatoid arthritis with rheumatoid factor, unspecified From tramadol 50 mg PO Q6H PRN 20 tabs 0RF pain M51.36 - Other intervertebral disc degeneration, lumbar region To tramadol 50 mg PO BID 30 days 60 tabs 5RF pain M51.36 - Other intervertebral disc degeneration, lumbar region Refilled pregabalin 200 mg PO BID 60 caps 4RF M05.9 - Rheumatoid arthritis with rheumatoid factor, unspecified folic acid 1 mg PO DAILY 90 tabs 1RF Z79.61 - nursing home (current) use 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 Coding Level of Care Code Est Pt Level 4 (87524) Complex EM visit Add On G2211 Diagnoses Seropositive rheumatoid arthritis M05.9 Thoracic spine pain M54.6 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
[2025-04-27 09:24] VITALS: BP 102/60; PULSE 74; O2SAT 98; BMI 21.8
== END 2025-04-27 10:03 | disposition home or self-care (01) ==
LOC: HO.RHE 08:43
PROVIDERS: PCP Internal Medicine; Visit Provider Student in an Organized Health Care Education/Training Program
DX: M05.79 Rheumatoid arthritis with rheumatoid factor of multiple sites without organ or systems involvement (principal); M54.6 Pain in thoracic spine; Z79.631 Long term (current) use of antimetabolite agent; Z79.899 Other long term (current) drug therapy
CPT/HCPCS: 99214; G2211

== ENCOUNTER → 2025-04-27 08:42 | Outpatient (BNVA) | payer OTHER, SELFPAY ==
[2025-04-13 11:19] VITALS: BP 96/60; BP 96/66; BMI 22.5
== END ==
PROVIDERS: PCP Internal Medicine; Visit Provider Student in an Organized Health Care Education/Training Program
DX: M05.9 Rheumatoid arthritis with rheumatoid factor, unspecified (principal); M79.7 Fibromyalgia; M54.6 Pain in thoracic spine; M54.2 Cervicalgia; M81.0 Age-related osteoporosis without current pathological fracture; G47.00 Insomnia, unspecified; Z79.61 Long term (current) use 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; Z79.631 Long term (current) use of antimetabolite agent; Z79.899 Other long term (current) drug therapy
CPT/HCPCS: 99212

== ENCOUNTER 2025-04-30 10:49 | Day surgery (SDC) | payer OTHER, SELFPAY ==
--- OUTSIDE RECORDS SUMMARY | 2025-01-05 15:19 | XMS_ITS | Data Portability ---
Author Organization [employer] [employer] Address [address] [place] [address] Care Team Providers Care Specialty Transformer Assembler Name Role Phone HIM CCA Primary Care Provider Assessment Encounter Date Assessment Date Assessment LastModified by Organization Details LastModified Time 03/27/2024 03/27/2024 I provided real -time medical direction via phone for this encounter, and was available for additional phone based assistance as needed. I have reviewed and agree with the Assessment and Plan as documented by the Plaster Machine Tender. We discussed the diagnostic uncertainty of home [...] for evaluation and management. Report called to [facility] ER [email or web address] Not available 03/27/2024 13:41:34 Plan of Treatment [...] 03/27/2024 6 RxNorm Radha Fernández MD [address] [facility],[address], [place], [address] [facility] [employer] 13:34:28 Medications Name Sig Start Date Stop [...] 4 114 /min 20 /min 121.92 cm 03734 g 94 % 94 % 98.8 [degF] [...] SNOMED-CT Code Diagnosis ICD10 Code Diagnosis Note [id number] Radha Fernández MD Main - [address] [address] 03/27/2024 13:23:51 03/29/2024 11:48:16 Diverticulitis [id number] K57.92 Health Concerns Section Related Observation LastModified by Organization Detai ls LastModified Time None Recorded Concern Status LastModified by Organization Details LastModified Time None Recorded Advance Directives Directive None Recorded Payers Encounter Date Sequence Insurance Name Policy Number Policy Charles Covered Member ID Charles Member ID Guarantor Name 03/27/2024 1 [facility] - DOS ON OR AFTER 2023 - DUAL ELIGIBLE - DETENTION OPTIONS AND ONE CARE (MEDICARE REPLACEMENT/ADV ANTAGE - HMO) Sosa Joiner [id number] Sosa Joiner Notes Date Note Type Note [...] was seen in the ER 03/25 at [facility] -CT attached. She has been complaining of a frontal headache -CT head and neck were negative for acute disease in the ER -she is complaining of severe abdominal pain Plaster Machine Tender POC Test Results from Amy Montana - [facility] Blood Glucose Measurement (1) [14:39] Blood Glucose: 149 mg/dL .................... .................... .................... .................... .................... .................... .................... . Plaster Machine Tender Note From Amy Montana: Sent to a [...] d CT scans performed (results uploaded to [facility]) at [place] ED on 03/25 and prescribed Levofloxacin 500mg [...] narcotics for pain during flares. [facility]. [facility]/venous blood draw, stating she would prefer to go to ED. [facility] [place] and orders BG as pt does not check BG regularly. Pt states she usually uses CGM, but ran out, and hasn't used glucometer for over 1 week. B; [facility] [place] [facility] ED. 911 contacted and pt care transferred to [facility] crew. Pt transported to [facility] ED via [facility]. .................... .................... .................... .................... .................... .................... .................... . Disposition: Fulfilled Radha Fernández MD [address] [facility],[address], [place], [address], [employer] Technologies[employer]D TOLBERT 03/27/2024 14:55:37 OBGyn Episode No OBEpisode recorded.
--- OUTSIDE RECORDS SUMMARY | 2025-01-05 15:19 | XMS_ITS | Clinical Summary ---
Author Organization [facility] Address [address] [place] [address] Phone Care Team Providers Care Machine Wood Sander Name Role Phone Adela Gipson MD Primary Care Provider [phone] Allergies Active Allergy Reactions Criticality Noted Date [...] Visit [facility] [address] [place] [address] [place] [address] Alexi Warren MD [address] [address] Health Maintenance Due Date Last Done Comments [...] Most Recently Relevant to Health Maintenance Insurance [facility] [place] [id number] Care Teams Machine Wood Sander Relationship Specialty Start Date End Date Adela Gipson MD [address] [place], [place] PCP - General Internal Medicine 05/28/22
--- OUTSIDE RECORDS SUMMARY | 2025-01-05 15:19 | XMS_ITS | Clinical Summary ---
Author Organization [facility] Address [address] [place] [address] Phone Care Team Providers Care Investigation Lieutenant Name Role Phone Adela Wasserman MD Primary Care Provider [phone] Social History Tobacco Use Types Packs/Day Years Used Date Smoking Tobacco: Never Assessed Comments Unknown Sex and Gender Information Value Date Recorded Sex Assigned at Not on file Legal Sex Female 10:47 PM EST Gender Identity Not on file Sexual Orientation Not on file Plan of Treatment Health Maintenance Due Date Last Done Comments Breast Cancer Screening 1962 DTaP,Tdap,and Td Vaccines (1 - Tdap) 1981 Cervical Cancer Screening: P ap Smear 1983 Pneumococcal Vaccine: 50+ Ye ars (1 of 1 - PCV) 2012 Zoster Vaccines (1 of 2) 2012 Cholesterol [...] patient's age to complete this topic Meningococcal B Vacine Aged Out No lo nger eligible based on patient's age to complete [...] on patient's age to complete this topic Insurance [employer] MEDICARE Member Subscriber Plan / Payer (Ef fective 2023-Present) Name:Sosa Joiner Relation to Subscriber:Self Name:Sosa Joiner Payer ID:[id number] Group ID:[id number] Type:Not on file Address: [place] [address] [place] [id number] Care Teams Investigation Lieutenant Relationship Specialty Start Date End Date Adela Wasserman MD [address] [place] [address] , [address] [facility] [place], [place] PCP - General Internal Medicine 12/08/24
[2025-04-13 11:19] VITALS: BP 96/60; BP 96/66; BMI 22.5
--- NOTE | 2025-04-29 11:14 | P.CONAN_ITS ---
Documented by User: Chelsie Leon NP 04/29/25 11:24 HPI - Anesthesia Eval Consult details Narrative: 63yo F for Upper Endoscopy s/p Hand Assist Laparoscopic Sigmoid Colectomy 03/2024 with GA-ETT 7 CAD: Follows [facility] [place] Cardiology. [place] 2021. Nml cath 08/2023. Last office visit 01/2025 with SOB r/t brillinta side effect and changed to plavix. Otherwise stable COPD/Asthma: Follows Dr Duncan. Controlled on trelegy. Rare albuterol need DM: Does not check. February 2024 A1C ~ 6% GERD: Uncontrolled on rx. CVA: ~ 7 years ago, no residual. 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 Anesthesia Pre-Procedure Meds Is the patient on any of the following meds?: GLP1/DPP4 (Last dose 04/08/24) PMFSH Active Problems Active Problems: All Active Problems Tenderness of anatomical snuffbox (Acute) Fracture of triquetral bone of right wrist (Acute) CAD (coronary artery disease) (Acute) Hypothyroid (Acute) Vaginal discharge (Acute) Thoracic spine pain (Acute) Neck pain (Acute) STEMI (ST elevation myocardial infarction) (Acute) Pain of left scapula (Acute) Transaminitis (Acute) Severe major depression without psychotic features (Acute) Helicobacter pylori infection (Acute) GERD (gastroesophageal reflux disease) (Acute) Dysuria (Acute) Lower urinary tract symptoms (Acute) Chest pain (Acute) Breast pain, left (Acute) Urinary tract infection (Acute) Sensation of pressure in bladder area (Acute) Right sided sciatica (Acute) Polyneuropathy (Acute) Left leg paresthesias (Acute) Thoracic back pain (Acute) Left leg pain (Acute) Foot pain, left (Acute) Gastroparesis (Acute) Hypokalemia (Acute) Kidney stones (Acute) Sinus tachycardia (Acute) Lumbar degenerative disc disease (Acute) Essential hypertension (Acute) Smoker (Acute) 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 (Acute) Stented coronary artery (Acute) Diabetes mellitus (Acute) Raynauds disease (Acute) Allergic rhinitis (Acute) History of Helicobacter pylori infection (Acute) History of ischemic colitis (Acute) COPD (chronic obstructive pulmonary disease) (Acute) Asthma (Acute) Allergic rhinitis (Acute) HTN (hypertension) (Acute) 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 (Acute) Hospital discharge follow-up (Acute) Tendonitis of ankle or foot (Acute) Colitis (Acute) Cough (Acute) Anxiety (Acute) HLD (hyperlipidemia) (Acute) H/O cardiac catheterization (Acute) PAD (peripheral artery disease) (Acute) Hyperlipidemia LDL goal <100 (Acute) Infiltrating ductal carcinoma of left breast, stage 2 (Acute) Insomnia (Acute) Dyslipidemia (Acute) Bipolar 1 disorder, depressed (Acute) Cough (Acute) Restrictive airway disease (Acute) Vitamin D deficiency (Acute) Osteoporosis (Acute) Hyperparathyroidism (Acute) Thyroid nodule (Acute) Fibromyalgia (Acute) Seropositive rheumatoid arthritis (Acute) Reactive airways dysfunction syndrome (Acute) Allergic rhinitis (Acute) Past Medical History Medical History CAD (coronary artery disease) NSTEMI (non-ST elevated myocardial infarction) GERD (gastroesophageal reflux disease) Diverticulitis 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 Acute respiratory distress Tendonitis of ankle or foot Cough Stable angina Anxiety HLD (hyperlipidemia) HTN (hypertension) COPD exacerbation Hyperkalemia Atherosclerotic cardiovascular disease Hospital discharge follow-up Colitis CVA (cerebral vascular accident) (~2018) Breast pain, right Rash Bloody diarrhea PAD (peripheral artery disease) Hyperlipidemia LDL goal <100 COPD (chronic obstructive pulmonary disease) Infiltrating ductal carcinoma of left breast, stage 2 Insomnia Dyslipidemia Bipolar 1 disorder, depressed Cough Restrictive airway disease Hypothyroid IDDM (insulin dependent diabetes mellitus) Vitamin D deficiency Osteoporosis Breast cancer Hyperparathyroidism Thyroid nodule T2DM (type 2 diabetes mellitus) Depression Fibromyalgia Seropositive rheumatoid arthritis Reactive airways dysfunction syndrome Allergic rhinitis Irritable bowel Anxiety Bronchial asthma Diabetes type 2, uncontrolled Family History Family History Mother Diabetes HTN (hypertension) Uterus cancer Malignant tumor of head Breast cancer Father Diabetes HTN (hypertension) CVD (cardiovascular disease) Heart problem Maternal Aunt Breast cancer Brother Myocardial infarction S/P CABG x 4 Family/Other FH: mental illness Family/Other Lung cancer Other Mental health disorder Family history of problems with anesthesia: No Surgical History Surgical History S/P laparoscopic colectomy (04/15/24) Hx of sigmoidoscopy History of bronchoscopy Hx of endoscopy H/O cardiac catheterization History of lumpectomy of left breast History of pubovaginal sling History of esophagogastroduodenoscopy (EGD) History of tubal ligation History of colonoscopy History of bunionectomy of both great toes H/O: hysterectomy History of Problems with Anesthesia: No Social History Social History Household Members: Family Household Members Other:: sister Housing: House Are you a primary post acute care nurse practitioner to a significant other at home: No Do you presently have visiting nurse or other home services: No Unable to assess alcohol history related to: Unknown Alcohol intake: never Comment: Low fall Patient Tobacco Use Status: Current everyday Tobacco user Tobacco use type: Cigarette Cigarette Packs Per Day: 0.5 Cigarettes Per Day: 3 Years Smoked: 48 e-Cigarette/Vaping Use: Never Used Second Hand Smoke Exposure: No Substance Use Type: Marijuana Advance Directives: No Advance Directives Information Provided: Yes Advance Directives Date on File: 12/22/21 service: No Current occupational status: disabled Current occupation: rt handed Cognitive needs: No Hearing needs: No Vision needs: Yes Meds Allergies Allergy/AdvReac Type Severity Reaction Status Date / Time methylprednisolone Allergy Severe Rash from Verified 04/27/25 09:23 Solu-Medrol shellfish derived Allergy Intermediate Hives Verified 04/27/25 09:23 etanercept [From Enbrel] AdvReac Severe Facial Verified 04/27/25 09:23 Swelling metformin AdvReac Severe Diarrhea Verified 04/27/25 09:23 metronidazole [From FLAGYL] AdvReac Severe Diarrhea Verified 04/27/25 09:23 prednisone AdvReac Intermediate hallucinations, Verified 04/27/25 09:23 more than 20 mg doses Home Medications ?Medication ?Instructions ?Recorded ?Confirmed ?Last Taken ?Type albuterol sulfate 90 mcg/actuation 2 inh inhalation Q4H PRN Shortness 08/23/23 04/27/25 09/26/23 History aerosol inhaler Of Breath Or Wheezing fluticasone fur. 200 mcg-umeclid 1 ea inhalation DAILY 02/06/24 04/27/25 04/14/24 History 62.5 mcg-vilant 25 mcg inhalat.powder (Trelegy Ellipta) Exam Narrative Narrative: EKG 01/2025 Details: Normal sinus rhythm, normal ECG, QTC 439 milliseconds ECHO 2022 Conclusions: - The left ventricular systolic function is normal. The calculated ejection fraction is 60% by biplane method. - No obvious valvular pathology seen on this study. VT cardiolite stress test 2022 IMPRESSION: 1. Myocardial perfusion imaging study shows probably normal myocardial perfusion. No clear evidence of any ischemia or infarction. 2. Gated LVEF is 68% during stress and > 70% during rest. 3. Transient ischemic dilatation not present.VT cardiolite stress test cardiac catheterization 08/2023 stable disease with no significant LAD or RCA stenosis. Her previous circumflex stents were patent. 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 Acute respiratory distress Tendonitis of ankle or foot Cough Stable angina Anxiety HLD (hyperlipidemia) HTN (hypertension) COPD exacerbation Hyperkalemia Atherosclerotic cardiovascular disease Hospital discharge follow-up Colitis CVA (cerebral vascular accident) (~2017) Breast pain, right Rash Bloody diarrhea PAD (peripheral artery disease) Hyperlipidemia LDL goal <100 COPD (chronic obstructive pulmonary disease) Infiltrating ductal carcinoma of left breast, stage 2 Insomnia Dyslipidemia Bipolar 1 disorder, depressed Cough Restrictive airway disease Hypothyroid IDDM (insulin dependent diabetes mellitus) Vitamin D deficiency Osteoporosis Breast cancer Hyperparathyroidism Thyroid nodule T2DM (type 2 diabetes mellitus) Depression Fibromyalgia Seropositive rheumatoid arthritis Reactive airways dysfunction syndrome Allergic rhinitis Irritable bowel Anxiety Bronchial asthma Diabetes type 2, uncontrolled Family History Family History Mother Diabetes HTN (hypertension) Uterus cancer Malignant tumor of head Breast cancer Father Diabetes HTN (hypertension) CVD (cardiovascular disease) Heart problem Maternal Aunt Breast cancer Brother Myocardial infarction S/P CABG x 4 Family/Other FH: mental illness Family/Other Lung cancer Other Mental health disorder Surgical History Surgical History S/P laparoscopic colectomy (04/15/24) Hx of sigmoidoscopy History of bronchoscopy Hx of endoscopy H/O cardiac catheterization History of lumpectomy of left breast History of pubovaginal sling History of esophagogastroduodenoscopy (EGD) History of tubal ligation History of colonoscopy History of bunionectomy of both great toes H/O: hysterectomy Social History Social History Household Members: Family Household Members Other:: sister Housing: House Are you a primary post acute care nurse practitioner to a significant other at home: No Do you presently have visiting nurse or other home services: No Unable to assess alcohol history related to: Unknown Alcohol intake: never Comment: Low fall Patient Tobacco Use Status: Current everyday Tobacco user Tobacco use type: Cigarette Cigarette Packs Per Day: 0.5 Cigarettes Per Day: 3 Years Smoked: 48 e-Cigarette/Vaping Use: Never Used Second Hand Smoke Exposure: No Substance Use Type: Marijuana Advance Directives: No Advance Directives Information Provided: Yes Advance Directives Date on File: 12/22/21 service: No Current occupational status: disabled Current occupation: rt handed Cognitive needs: No Hearing needs: No Vision needs: Yes Meds Allergies Allergy/AdvReac Type Severity Reaction Status Date / Time methylprednisolone Allergy Severe Rash from Verified 04/27/25 09:23 Solu-Medrol shellfish derived Allergy Intermediate Hives Verified 04/27/25 09:23 etanercept [From Enbrel] AdvReac Severe Facial Verified 04/27/25 09:23 Swelling metformin AdvReac Severe Diarrhea Verified 04/27/25 09:23 metronidazole [From FLAGYL] AdvReac Severe Diarrhea Verified 04/27/25 09:23 prednisone AdvReac Intermediate hallucinations, Verified 04/27/25 09:23 more than 20 mg doses Home Medications ?Medication ?Instructions ?Recorded ?Confirmed ?Last Taken ?Type albuterol sulfate 90 mcg/actuation 2 inh inhalation Q4H PRN Shortness 08/23/23 04/27/25 09/26/23 History aerosol inhaler Of Breath Or Wheezing fluticasone fur. 200 mcg-umeclid 1 ea inhalation DAILY 02/06/24 04/27/25 04/14/24 History 62.5 mcg-vilant 25 mcg inhalat.powder (Trelegy Ellipta) Exam Airway Mallampati Class: II TM Dist: >3cm Neck ROM: Full Assessment and Plan Assessment Anesthesia Assessment: Anesthesia Plan Discussed Final Anesthetic Review NPO: Yes ASA Class: III Final Preanesthetic Review: No Changes in Pt Med Stat, Meds/Allgs Chart Reviewed, Consent Obtained/Reviewed and Anes Risks/Benef Reviewed Patient Risk: Intermediate Procedure Risk: Low Anesthetic Plan Anesthetic Plan: TIVA Disposition: Standard PACU
--- NOTE | 2025-04-30 10:50 | MHC.SHP ---
Pre-Procedural Eval Section A - 24 Hr Update-Section A only Date of Service: 04/30/25 The patient is an INPATIENT: No The patient has been examined within 24 hours of the surgical procedure. 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 Acute respiratory distress Tendonitis of ankle or foot Cough Stable angina Anxiety CAD (coronary artery disease) HLD (hyperlipidemia) HTN (h) History of Previous Operations: Relevant previous surgery/procedure and date(s) (S/P laparoscopic colectomy (04/15/24) Hx of sigmoidoscopy History of bronchoscopy Hx of endoscopy H/O cardiac catheterization History of lumpectomy of left breast History of pubovaginal sling History of esophagogastroduodenoscopy (EGD) History of tubal ligation History of colonoscopy History of buni) Allergies: Allergies Allergy/AdvReac Type Severity Reaction Status Date / Time methylprednisolone Allergy Severe Rash from Verified 04/27/25 09:23 Solu-Medrol shellfish derived Allergy Intermediate Hives Verified 04/27/25 09:23 etanercept [From Enbrel] AdvReac Severe Facial Verified 04/27/25 09:23 Swelling metformin AdvReac Severe Diarrhea Verified 04/27/25 09:23 metronidazole [From FLAGYL] AdvReac Severe Diarrhea Verified 04/27/25 09:23 prednisone AdvReac Intermediate hallucinations, Verified 04/27/25 09:23 more than 20 mg doses Review of Systems Sugical H&P ROS: Negative: Constitution, Cardiovascular and Respiratory and Yes, Specify: Gastrointestinal (abd Pain and dysphagia) Exam Surgical H&P Exam: Normal: Heart, Normal: Lungs, Normal: Extremities and Normal: Abdomen Plan Diagnosis/Plan: Unchanged I have reviewed the history and physical and performed a pertinent physical examination on my patient. No changes have occurred unless specified. Time Spent With Patient Time: Total time managing care of this patient today ____ minutes.
[2025-04-30 11:14] VITALS: BP 114/67; PULSE 72; RESP 14; TEMP 36.6; O2SAT 96; BMI 47.5
[2025-04-30] MEDS: Lactated Ringers 1,000 ML 100 ML IVCONT (11:17)
[2025-04-30] MEDS: Albuterol Sulfate (0.083%) 2.5 MG/3 ML VIAL.NEB INHALE (11:20)
[2025-04-30 11:25] VITALS: PULSE 57; RESP 18; O2SAT 92
[2025-04-30 11:36] LABS: Glucose, Whole Blood 124 mg/dL (60-115)
--- NOTE | 2025-04-30 12:07 | W.PM.OPN ---
Operative Note Operative Note Date of Service: 04/30/25 Narrative: FLEXIBLE TRANSORAL UPPER GASTROINTESTINAL ENDOSCOPY WITH BIOPSIES AND ESOPHAGEAL BALLOON DILATION Pre-op diagnosis: GERD, Epigastric pain, Dysphagia Post-op diagnosis: GERD, dysphagia, Gastritis Endoscopist:? Ruth Roman MD Anesthesia:?MAC UPPER ENDOSCOPY Consent: Indications for the procedure and potential complications of bleeding, perforation, reaction to medications and missed diagnosis were discussed with the patient and informed consent was obtained. Instrument: Olympus GIF H 190 mid size upper endoscope Monitoring: Vital signs and clinical assessment, continuous EKG monitoring, Pulse oximetry, Carbon Dioxide monitoring and blood pressure monitoring were done throughout the procedure. Procedure: The patient was placed in the left lateral decubitis position and pre-procedure medications were administered and a bite block was placed. The endoscope was inserted into the mouth and advanced under direct vision to the third part of duodenum. A careful inspection was made as the upper endoscope was withdrawn including a retroflexed examination of the proximal stomach; Findings and interventions are described below. Findings: Larynx: Normal Esophagus: GE junction at 34 cms, small hiatal hernia from 34-35 cm. Mildly tortuous esophagus without stricture or ring Empiric balloon dilation of the distal esophagus was performed with a 20 mm CRE balloon x 60 seconds Balloon dilation of the proximal esophagus was performed with an 18 mm CRE balloon x 60 seconds Stomach: Moderate diffuse gastric erythema - biopsies were obtained from the gastric body and antrum. Grade 2 flap valve on retroflexed examination of the cardia. Duodenum: Normal bulb and descending duodenum. Biopsies were obtained from 3rd part of the duodenum to check for celiac sprue. Intervention: Biopsies as noted above Impression and Post Procedure Diagnosis: Endoscopy Findings: ESOPHAGUS: Small hiatal hernia from 34-35 cm. Mildly tortuous esophagus without stricture or ring Empiric balloon dilation of the distal esophagus was performed with a 20 mm CRE balloon x 60 seconds Balloon dilation of the proximal esophagus was performed with an 18 mm CRE balloon x 60 seconds STOMACH: Moderate diffuse gastritis DUODENUM: Normal - biopsied to check for celiac sprue. Plan: Pt has a FU appointment on 05/13/[address] Roman. Above findings were reviewed with the patient and relevant handouts were given and the discharge area. BIOPSIES SHOWED: A. Duodenum, biopsy: Duodenal mucosa within normal limits; preserved villous architecture and no increase in intraepithelial lymphocytes; negative for gastric foveolar metaplasia/dysplasia. B. Stomach, antrum, biopsy: H pylori gastritis with extensive intestinal metaplasia; negative for dysplasia/malignancy. C. Stomach, body, biopsy: H pylori gastritis; negative for intestinal metaplasia/dysplasia/malignancy. D. Esophagus, distal, biopsy: Squamous mucosa within normal limits; negative for inflammation/fungal organisms/dysplasia/malignancy. E. Esophagus, proximal, biopsy: Squamous mucosa within normal limits; negative for inflammation/ fungal organisms/dysplasia/malignancy Repeat EGD in 3 years for FU of gastric intestinal metaplasia.
[2025-04-30 12:09] VITALS: BP 88/41; PULSE 80; RESP 12; TEMP 36.9; O2SAT 97
[2025-04-30 12:25] VITALS: BP 103/56; PULSE 79; RESP 20; TEMP 37; O2SAT 97
== END 2025-04-30 12:50 | disposition home or self-care (01) ==
PROVIDERS: PCP Internal Medicine; Visit Provider Internal Medicine Gastroenterology
PROC: 0DJ08ZZ Inspection of Upper Intestinal Tract, Via Natural or Artificial Opening Endoscopic (ICD-10-PCS; CPT 43235; principal; 2025-04-30 12:40)
DX: R10.13 Epigastric pain (principal); K21.9 Gastro-esophageal reflux disease without esophagitis; R13.10 Dysphagia, unspecified; K29.70 Gastritis, unspecified, without bleeding; B96.81 Helicobacter pylori [H. pylori] as the cause of diseases classified elsewhere; K31.A0 Gastric intestinal metaplasia, unspecified; K31.84 Gastroparesis; K52.9 Noninfective gastroenteritis and colitis, unspecified; Z90.49 Acquired absence of other specified parts of digestive tract; Z98.0 Intestinal bypass and anastomosis status; K59.00 Constipation, unspecified; I25.2 Old myocardial infarction; I25.10 Atherosclerotic heart disease of native coronary artery without angina pectoris; Z86.73 Personal history of transient ischemic attack (TIA), and cerebral infarction without residual deficits; E11.9 Type 2 diabetes mellitus without complications; M79.7 Fibromyalgia; M05.9 Rheumatoid arthritis with rheumatoid factor, unspecified; J44.9 Chronic obstructive pulmonary disease, unspecified; C50.912 Malignant neoplasm of unspecified site of left female breast; R74.01 Elevation of levels of liver transaminase levels; Z79.811 Long term (current) use of aromatase inhibitors; Z79.01 Long term (current) use of anticoagulants; Z79.82 Long term (current) use of aspirin; Z79.51 Long term (current) use of inhaled steroids; Z79.85 Long-term (current) use of injectable non-insulin antidiabetic drugs; Z79.899 Other long term (current) drug therapy; Z88.8 Allergy status to other drugs, medicaments and biological substances; Z98.890 Other specified postprocedural states; Z87.891 Personal history of nicotine dependence
CPT/HCPCS: 43249; 43239; 82947; 88305; 88313; 88342; 94640; C1726; J2003; J2704

== ENCOUNTER → 2025-04-30 10:49 | Outpatient (BNV) | payer OTHER, SELFPAY ==
[2025-04-13 11:19] VITALS: BP 96/60; BP 96/66; BMI 22.5
== END ==
PROVIDERS: PCP Internal Medicine; Visit Provider Internal Medicine Gastroenterology
DX: K22.89 Other specified disease of esophagus (principal); K44.9 Diaphragmatic hernia without obstruction or gangrene; K31.89 Other diseases of stomach and duodenum
CPT/HCPCS: 43239; 43249

== ENCOUNTER 2025-05-04 09:01 | Outpatient (REF) | payer OTHER, SELFPAY ==
[2025-04-13 11:19] VITALS: BP 96/60; BP 96/66; BMI 22.5
--- NOTE | ~2025-05-04 | XR_ITS ---
EXAMINATION: XR WRIST, RIGHT CLINICAL INFORMATION: M25.531 - Pain in right wrist COMPARISON: None available. TECHNIQUE: PA, lateral, and oblique views of the right wrist. FINDINGS: No acute fracture, dislocation, or suspicious bone lesion. There is an old distal radial fracture, healed. There is an old nonunited distal ulnar styloid fracture. There is radiocarpal joint space narrowing. Carpal bones otherwise intact and normally aligned. No soft tissue abnormalities. XR/XR wrist RT min 3V IMPRESSION: 1. No acute bony abnormalities right wrist. Chronic abnormalities as discussed. Electronically signed by: Jose Costello MD 05/04/2025 02:07 PM EDT
== END 2025-05-04 09:02 | disposition home or self-care (01) ==
LOC: HO.HOSX 09:01
PROVIDERS: Visit Provider Orthopaedic Surgery
DX: M25.531 Pain in right wrist (principal); S62.111A Displaced fracture of triquetrum [cuneiform] bone, right wrist, initial encounter for closed fracture; M79.641 Pain in right hand; F17.200 Nicotine dependence, unspecified, uncomplicated; M05.9 Rheumatoid arthritis with rheumatoid factor, unspecified; M79.7 Fibromyalgia
CPT/HCPCS: 73110; 99212

== ENCOUNTER 2025-05-04 13:44 | Outpatient (AMB) | payer OTHER, SELFPAY ==
[2025-04-13 11:19] VITALS: BP 96/60; BP 96/66; BMI 22.5
--- NOTE | 2025-05-04 14:29 | MHC.OFFVIS ---
Intake Visit Reasons: OV-Mri Review of RT Wrist Intake Note: Sosa is a 64 year old right hand dominant female presents today to review her MRI of the right wrist. She was being treated for a Right triquetral Fracture DOI 02/21/25. At her last visit she was given a velcro wrist brace and currently states she has pain when she removes the brace. Allergies methylprednisolone Allergy (Severe, Verified 05/04/25 14:30) Rash from Solu-Medrol shellfish derived Allergy (Intermediate, Verified 05/04/25 14:30) Hives etanercept [From Enbrel] Adverse Reaction (Severe, Verified 05/04/25 14:30) Facial Swelling metformin Adverse Reaction (Severe, Verified 05/04/25 14:30) Diarrhea metronidazole [From FLAGYL] Adverse Reaction (Severe, Verified 05/04/25 14:30) Diarrhea prednisone Adverse Reaction (Intermediate, Verified 05/04/25 14:30) hallucinations, more than 20 mg doses HPI HPI OV-Mri Review of RT Wrist: Details: Sosa is a 64 year old right hand dominant woman who returns for an MRI review of her right Triquetral fracture, DOI: 02/21/25. This has been managed conservatively by JOSEF Zabala. She says she is doing well overall. She denies any pain when in her splint but reports having pain when her splint is removed. She si a Diabetic, a chronic smoker, has Fibromyalgia & RA. She follows with Rheumatology for this [facility] Medical History CAD (coronary artery disease) NSTEMI (non-ST elevated myocardial infarction) GERD (gastroesophageal reflux disease) Diverticulitis large intestine MCFP (current) use 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 Acute respiratory distress Tendonitis of ankle or foot Cough Stable angina Anxiety HLD (hyperlipidemia) HTN (hypertension) COPD exacerbation Hyperkalemia Atherosclerotic cardiovascular disease Hospital discharge follow-up Colitis CVA (cerebral vascular accident) (~2018) Breast pain, right Rash Bloody diarrhea PAD (peripheral artery disease) Hyperlipidemia LDL goal <100 COPD (chronic obstructive pulmonary disease) Infiltrating ductal carcinoma of left breast, stage 2 Insomnia Dyslipidemia Bipolar 1 disorder, depressed Cough Restrictive airway disease Hypothyroid IDDM (insulin dependent diabetes mellitus) Vitamin D deficiency Osteoporosis Breast cancer Hyperparathyroidism Thyroid nodule T2DM (type 2 diabetes mellitus) Depression Fibromyalgia Seropositive rheumatoid arthritis Reactive airways dysfunction syndrome Allergic rhinitis Irritable bowel Anxiety Bronchial asthma Diabetes type 2, uncontrolled Surgical History S/P laparoscopic colectomy (04/15/24) Hx of sigmoidoscopy History of bronchoscopy Hx of endoscopy H/O cardiac catheterization History of lumpectomy of left breast History of pubovaginal sling History of esophagogastroduodenoscopy (EGD) History of tubal ligation History of colonoscopy History of bunionectomy of both great toes H/O: hysterectomy Family History Mother Diabetes HTN (hypertension) Uterus cancer Malignant tumor of head Breast cancer Father Diabetes HTN (hypertension) CVD (cardiovascular disease) Heart problem Maternal Aunt Breast cancer Brother Myocardial infarction S/P CABG x 4 Family/Other FH: mental illness Family/Other Lung cancer Other Mental health disorder Social History Household Members: Family Household Members Other:: sister Housing: House Are you a primary respiratory care instructor to a significant other at home: No Do you presently have visiting nurse or other home services: No Unable to assess alcohol history related to: Unknown Alcohol intake: never Comment: Low fall Patient Tobacco Use Status: Current everyday Tobacco user Tobacco use type: Cigarette Cigarette Packs Per Day: 0.5 Cigarettes Per Day: 3 Years Smoked: 48 e-Cigarette/Vaping Use: Never Used Second Hand Smoke Exposure: No Substance Use Type: Marijuana Advance Directives Date on File: 12/22/21 service: No Current occupational status: disabled Current occupation: rt handed Cognitive needs: No Hearing needs: No Vision needs: Yes Review of Systems Const All systems reviewed & are unremarkable except as noted in HPI and below Physical Exam Const General: cooperative, healthy appearing and no acute distress Orientation/consciousness: patient oriented x3 HEENT Head: Yes normocephalic and Yes atraumatic Eyes EOM: EOMs intact bilaterally Resp Effort & Inspection: normal respiratory effort and able to speak in complete sentences Cardio Jugular venous distension: no JVD Skin General skin exam: turgor normal Rashes: no rashes Neuro General: patient oriented x3 Extrem Other: Evaluation of Right Upper Extremity: The patient is alert, oriented, and in no acute distress Neuro: Median, Ulnar, Radial nerves motor and sensory intact and sensation is normal to the tips of all digits Vascular: Cap refill brisk She can make a fist and extend all of her digits. No locking or catching. Her distal radius DRUJ and distal ulna are now nontender to palpation. She is also not particularly tender over the triquetrum. Mild tenderness over the radioscaphoid joint. Initially she had some discomfort with wrist flexion and extension after being in a splint. After she started working on range of motion in clinic, she did show some improvement. 75 degrees of pronation, and about 65-70 degrees of supination without pain. Skin: No lacerations or abrasions. General: No Ecchymosis. No Erythema or evidence of infection. Radiographs: 3 views of the right wrist were taken and viewed by me today in clinic. They show a healing triquetral fracture with satisfactory fracture alignment and evidence of interval bony healing. There is also a healed distal radius fracture with satisfactory fracture alignment. MRI: Findings: There is bone marrow edema of the distal radius with evidence of a healed nondisplaced intra-articular fracture. There is a remote fracture of the ulnar styloid. Bone marrow edema is seen in the distal capitate and adjacent to the capitate hamate joint. There is edema of the triquetrum associated with a dorsal fracture. No effusion. There is dorsal tilt of the lunate. The posterior scapholunate ligament is possibly partially torn. There is tenosynovitis of the extensor carpi radialis longus and brevis. No triangular fibrocartilage complex tears. The flexor retinaculum is intact. Intact median and ulnar nerves. The triangular fibrocartilage appears grossly intact. The rest of the visualized tendons are unremarkable. IMPRESSION: 1. Bone marrow edema distal radius, triquetrum and distal capitate. There is a healed nondisplaced fracture of the distal radius best seen on sagittal images. There is a healing dorsal triquetral fracture. No definite fracture of the capitate. Findings appear to represent bone bruising or degenerative changes at the capitate hamate joint. 2. Dorsal tilt of the lunate suggest dorsal intercalated segment instability. There may be a tear of the posterior scapholunate ligament contributing to this. 3. Remote ulnar styloid fracture. 4. Tenosynovitis of the extensor carpi radialis longus and brevis. This document has been electronically signed by: Leonel Salas MD on 04/11/2025 Psych Appearance: grossly normal Affect: normal affect Attitude: cooperative Assessment & Plan Assessment & Plan (1) Fracture of triquetral bone of right wrist: Code(s): S62.111A - Displaced fracture of triquetrum [cuneiform] bone, right wrist, initial encounter for closed fracture Category: Medical (2) Tenderness of anatomical snuffbox: Code(s): M79.643 - Pain in unspecified hand Category: Medical (3) Smoker: Comment: Has past history of smoking 50 years. Currently smoking about 3-5 cigarettes a day. Counseled once again that she must quit completely. Advised that her frequent cough is definitely related to her ongoing smoking. Discussed with patient that smoking can make RA worse Code(s): F17.200 - Nicotine dependence, unspecified, uncomplicated Category: Social Hx (4) Diabetes mellitus: Code(s): E11.9 - Type 2 diabetes mellitus without complications Category: Medical Qualifiers: Diabetes mellitus complication status: without complication Diabetes mellitus long chain beamer insulin use: without group home use Diabetes mellitus type: type 2 Qualified Code(s): E11.9 - Type 2 diabetes mellitus without complications (5) Seropositive rheumatoid arthritis: Comment: +++RF+++CCP dx around 1999 [place]: 04/2021- 06/2022- stopped due to severe COPD requiring long standing azithromycin Plaquenil: approx. 02/2021-May 2021 self stopped Enbrel: approx. 02/2021 ordered after cleared for hep A, stopped due to allergy Sulfasalazine: approx. 02/2019- 02/2021 - restarted 09/27/2022 -04/2023 stopped due to heaedache and nausea Methorexate: approx. 11/2016-12/2018 started in [facility]. Diagnosed with breast CA so methotrexate discontinued. Changed to sulfsalazine 500mg 2 tabs BID to prevent lung fibrosis as patient was receiving radiation therapy for her breast CA. Completed Radiation therapy February 2019. OnTamoxifen but had side effects so was started on Letrozole in May 2019. MTX restarted 02/2024 Xeljanz: approx. 03/2018-04/2018 Cimzia: aprrox.05/2017- did not take Humira: dates unknown Leflunomide: many years ago, then approx. 08/2020-02/2021 Code(s): M05.9 - Rheumatoid arthritis with rheumatoid factor, unspecified Category: Medical (6) Fibromyalgia: Code(s): M79.7 - Fibromyalgia Category: Medical Plan Assessment & Plan: 1. Right Triquetral fracture After a fall, DOI: 02/21/25 2. Right distal radius fracture, nondisplaced Presumably from the same fall on 02/21/2025 New finding on MRI, healing well These have been managed conservatively by JOSEF Zabala I educated her about this condition and reviewed her MRI results with her There is no evidence of a scaphoid fracture She will discontinue her splint at this time She will work on ROM exercises at home I discussed activity modification, she is to use her hand for lightweight daily activities and slowly increase her weight limit as tolerated over the next few weeks She will follow up in 4-6 weeks for a ROM check with Vj and to see if she needs OT. She may cancel this if she is doing well Scribed for Gena Cruz MD by Andrés Duong, medical records tech, on 05/04/25 at 3:05 PM, EST. Orders: Orders XR wrist RT min 3V Today M25.531 - Pain in right wrist Coding Level of Care Code Est Pt Level 4 (24893) Diagnoses Fracture of triquetral bone of right wrist S62.111A Tenderness of anatomical snuffbox M79.643 Smoker F17.200 Type 2 diabetes mellitus without complication, without long-term current use of insulin E11.9 Diabetes mellitus complication status: without complication Diabetes mellitus long chain beamer insulin use: without group home use Diabetes mellitus type: type 2 Seropositive rheumatoid arthritis M05.9 Fibromyalgia M79.7
--- OUTSIDE RECORDS SUMMARY | 2025-05-04 15:42 | XMS_ITS | Data Portability ---
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 I have reviewed and agree with the Assessment and Plan as documented by the Ticket Maker. We discussed the diagnostic uncertainty of home [...] for evaluation and management. Report called to [facility] ER [email or web address] Not available 03/27/2024 13:41:34 Plan of Treatment [...] 6 RxNorm Radha Fernández MD [address] [facility],[address], [place], [address] [facility] [employer] 13:34:28 Medications Name Sig Start Date Stop [...] 4 114 /min 20 /min 121.92 cm 01023 g 94 % 94 % 98.8 [degF] [...] SNOMED-CT Code Diagnosis ICD10 Code Diagnosis Note [id number] Radha Fernández MD Main - [address] [id number] 03/27/2024 13:23:51 03/29/2024 11:48:16 Diverticulitis [id number] K57.92 Health Concerns Section Related Observation LastModified by Organization Detai ls LastModified Time None Recorded Concern Status LastModified by Organization Details LastModified Time None Recorded Advance Directives Directive None Recorded Payers Insurance Date Sequence Insurance Name Policy Number Policy Charles Covered Member ID Charles Member ID Guarantor Name 03/29/2024 1 [facility] - DOS ON OR AFTER 2023 - DUAL ELIGIBLE - [facility] OPTIONS AND ONE CARE (MEDICARE REPLACEMENT/ADV ANTAGE - HMO) Sosa Joiner [id number] Sosa Joiner Notes Date Note Type Note [...] .................... .................... . CRC Nurse Triage Notes (Lyndno Jorgensen): Comments: Reviewed - HPISEGMD: Patient with [...] was seen in the ER 03/25 at [facility] -CT attached. She has been complaining of a frontal headache -CT head and neck were negative for acute disease in the ER -she is complaining of severe abdominal pain Ticket Maker POC Test Results from Amy Montana - [facility] Blood Glucose Measurement (1) [14:39] Blood Glucose: 149 mg/dL .................... .................... .................... .................... .................... .................... .................... . Ticket Maker Note From Amy Montana: Sent to a [...] d CT scans performed (results uploaded to [facility]) at [place] ED on 03/25 and prescribed Levofloxacin 500mg [...] narcotics for pain during flares. [facility]/venous blood draw, stating she would prefer to go to ED. [facility] consulted and orders BG as pt does not check BG regularly. Pt states she usually uses CGM, but ran out, and hasn't used glucometer for over 1 week. B; [facility] calls report to [facility] ED. 911 contacted and pt care transferred to [facility] crew. Pt transported to [facility] ED via [facility]. .................... .................... .................... .................... .................... .................... .................... . Disposition: Fulfilled Radha Fernández MD [address] [facility],[address], [place], [phone], [facility] 03/27/2024 14:55:37 OBGyn Episode No OBEpisode recorded.
== END 2025-05-04 15:17 | disposition home or self-care (01) ==
LOC: HO.HOS 13:45
PROVIDERS: PCP Internal Medicine; Visit Provider Orthopaedic Surgery
DX: S62.111A Displaced fracture of triquetrum [cuneiform] bone, right wrist, initial encounter for closed fracture (principal); M79.641 Pain in right hand; F17.200 Nicotine dependence, unspecified, uncomplicated; E11.9 Type 2 diabetes mellitus without complications; M05.79 Rheumatoid arthritis with rheumatoid factor of multiple sites without organ or systems involvement; M79.7 Fibromyalgia
CPT/HCPCS: 99024

== ENCOUNTER → 2025-05-04 13:44 | Outpatient (BNV) | payer OTHER, SELFPAY ==
[2025-04-13 11:19] VITALS: BP 96/60; BP 96/66; BMI 22.5
== END ==
PROVIDERS: Visit Provider Radiology Diagnostic Radiology
DX: M19.031 Primary osteoarthritis, right wrist (principal)
CPT/HCPCS: 73110

== ENCOUNTER 2025-05-13 10:55 | Outpatient (AMB) | payer OTHER, SELFPAY ==
[2025-04-13 11:19] VITALS: BP 96/60; BP 96/66; BMI 22.5
--- NOTE | 2025-05-13 11:08 | A.OFFVIS_ITS ---
Vital Signs 05/13/25 11:46 Height 4 ft 10 in Weight 102 lb BMI 21.3 BP 94/55 L Blood Pressure Location Lt brachial Position Sitting Pulse 68 Pulse Oximetry (%) 95 Oxygen Delivery Method Room Air Intake Visit Reasons: s/p EGD Intake Note: Patient follow up for Colitis, lab and EGD results. No Fecal results. patient cc: constipation on and off, denies any other GI issues. 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 Accompanied by: Self / Same As Patient Allergies methylprednisolone Allergy (Severe, Verified 05/19/25 08:24) Rash from Solu-Medrol shellfish derived Allergy (Intermediate, Verified 05/19/25 08:24) Hives etanercept (From Enbrel) Adverse Reaction (Severe, Verified 05/19/25 08:24) Facial Swelling metformin Adverse Reaction (Severe, Verified 05/19/25 08:24) Diarrhea metronidazole (From FLAGYL) Adverse Reaction (Severe, Verified 05/19/25 08:24) Diarrhea prednisone Adverse Reaction (Intermediate, Verified 05/19/25 08:24) hallucinations, more than 20 mg doses Medication List - Last Reconciled 05/13/25 by Ruth Roman MD albuterol sulfate 90 mcg/actuation 2 inhalations inhalation Q4H PRN aspirin 81 mg PO DAILY blood pressure monitor As directed blood pressure test kit-medium As directed blood sugar diagnostic (FreeStyle Lite Strips) Use 1 test strip three times a day slzbsvpdbw-izotqcfdolbqa-lice 50-325-40 mg 1 tab PO Q6H PRN [clamp on tub safety rail As directed] clopidogrel 75 mg PO DAILY dulaglutide (Trulicity) 1.5 mg (0.5 mL) subcut TH@0900 [ez device repair technician bed assist support As directed] famotidine 20 mg PO BEDTIME 90 days plakgbjwcfh-fauypilpx-wpsthwna 200-62.5-25 mcg (Trelegy Ellipta) 1 ea inhalation DAILY folic acid 1 mg PO DAILY hydroxychloroquine (Plaquenil) 200 mg PO DAILY lancets (FreeStyle Lancets) Use 1 lancet once a day lithium carbonate 150 mg PO .DAILY @0900 melatonin 1 mg PO BEDTIME methotrexate sodium 17.5 mg (7 x 2.5 mg) PO QWEEK 90 days metoclopramide HCl (Reglan) 5 mg PO TID PRN 30 days metoprolol succinate ER 25 mg PO DAILY ondansetron 4 mg PO Q8H PRN pantoprazole 40 mg PO DAILY pen needle, diabetic USE 1 PEN NEEDLE 6 TIMES A DAY pregabalin 200 mg PO BID Shower Chair As directed simethicone 125 mg PO DAILY PRN tramadol 50 mg PO BID 30 days trazodone 100 mg PO BEDTIME 90 days trazodone 50 mg PO BEDTIME PRN 90 days walker with seat HPI HPI s/p EGD: Details: GI CLINIC VISIT FOR THIS 64-YEAR-OLD FEMALE FOR FU OF GERD AND DYSPHAGIA PT IS KNOWN TO ME FROM PAST GI VISITS FOR COLITIS SEEN ON CT SCAN AND FOR POSITIVE HEP A AB (IG M) 04/15/24 Pt had Hand assisted laparoscopic sigmoid colectomy with colorectal anastomosis by Dr Rodriguez HAD BRONCHOSCOPY ON 08/16? , FOUND TO HAVE GENERALIZED INFLAMMATION.? AND ENDOBRONCHIAL LESION IN THE RIGHT LOWER LOBE WAS SUSPECTED. BIOPSY AND CYTOLOGY IS CONSISTENT WITH MILD INFLAMMATORY CHANGES, NO METAPLASIA NEOPLASTIC CELLS. TODAY'S VISIT: patient cc: constipation on and off, denies any other GI issues. Complains of chronic constipation - has a BM twice a week. Has difficulty expelling stool which are hard Takes Senna three times a week - sometimes she forgets PAST VISITS: Follow up from ER for stabbing pain in stomach w/ eating or drinking. Patient cc: abdominal pain/bloating, diarrhea with food and some swallowing problems, Seen at [facility] on 11/16/24 - had sharp stabbing pains in the abdomen every time she eats or drinks anything. Pain started 2 weeks after she was admitted to [facility] 10/19/24 with an OH Pt had a burning and bad stabbing pain in the upper abdomen radiating to LUQ. Abd pain comes and goes every time she eats and drinks anything - gets nauseated Can have intermittent vomiting if the nausea is bad - smells and tastes like beer. Vomitus is light yellow with chunks of food Abdominal pain gets worse after the vomiting episode. Has had 3 episodes of diarrhea over the past 2 weeks. Having soft stools - had to go to the bathroom at night Stools have a lot of mucous and no blood. PAST VISITS: 08/04/24 H Pylori breath test was positive and pt was treated with I feel great since the surgery - have been eating a little more. Finished antibiotics last week - Tetracycline and Levo Resumed MTX - noted pain in her knees and big toe while she was off the MTX. Constipated last week - forgot to go to the bathroom. Started taking the Senna twice a day - finally able to go after 3 days. PAST VISITS: Noted nausea and decreased appetite with wt loss Ran out of Pantoprazole and forgot to refill it Having symptoms of regurgitation and heartburn and taking Famotidine. Stopped Lisinopril and feels a little better. Notes dizziness - states she has been drinking fluids - takes 1.5 litres of water daily. Has been constipated and has been taking Senna Took Senna plus and it helps intermittently Smokes 4 cigg/day and trying to cut back Unable to tolerate Chantix Pt states abdominal pain has resolved. Continues to have constipation - pt states its better Has a BM once a day with hard stools - planning to start taking Senna for constipation Unable to regain the wt she lost. Has been eating though not a lot. Taking Boost twice a day. Patient follow up from ED due bloody diarrhea. Patient cc: abdominal pain, nauseas, diarrhea, swallowing problems with sticky food and her saliva. I am in pain with nausea and diarrhea. Stomach really hurts Taking mesalamine 3 tablets daily Noted diarrhea since last night - 2 BMs last night and one this am. Had hard stools prior to that. Prescribed Trulance and was not covered by her insurance. Has a BM once a week when she is constipated. Started on MTX 15 mg once a week for RA by her Program Professional I havent been feeling good since I left the hospital Generalized body aches, diarrhea and constipation. Has constipation for a week and then diarrhea for 2 days. Taking Amitiza daily for constipation. Seen by School Teacher and was told she had stage 3 kidney disease Lab results reviewed - IBD serology suggestive of Crohn's disease Pt seen at [facility] on 05/16/23 with chest pain and dubois was negative. Pt is on sulfasalazine for RA which is on hold to see if nausea gets better. 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 Unable to take biologics for RA due to COPD. Tried Humira and had to be stopped due to facial swelling. Tried Embril and was stopped due to worsening COPD. She was told by her Program Professional that she is unable to use biologics Wt loss from 140 in Dec, 2021 to 115 lbs since she is eating less. Hospitalized with NSTEMI in Dec, 2021 and had 2 stents. Taking aspirin and Brilinta twice a day Had an MRI on the brain and changes noted on the right and left side Waiting to see a Neurologist. Has COPD and asthma. Patient denies known family history of colon polyps or colon cancer IMAGING STUDIES:? 10/15/23 GASTRIC EMPTYING STUDY SHOWED: 1 hour 64% (normal 37%-90%) 2 hours 50% (normal 30%-60%) 3 hours 33% 4 hours 13% (normal 0%-10%) NM/NM gastric emptying study IMPRESSION: Abnormal grade 1 delayed 4 hour gastric emptying study. US WITH DUPLEX: Elevated velocity in the proximal superior mesenteric artery is nonspecific. By velocity criteria, this is consistent with hemodynamically significant stenosis. However, the distal waveforms are not indicative of significant upstream disease and there is no significant stenosis seen on CT from 02/01/2023. 10/2022 BARIUM SWALLOW SHOWED:Following oral administration of thick, thin barium and barium-coatedturkey in upright view, there is normal propagation of bolus from the oral cavity through the pharynx, esophagus into stomach without obstruction, narrowing or stricture. There is mild prominence of cricoesophageal sphincter indenting the upper esophagus. There is mild ventral spondylosis at the C5-C6 and C6-C7 disc levels with minimal indentation on the posterior cervical esophageal wall. However, there is no obstruction. On oral administration of barium tablet, there is transient holdup in the mid esophagus and slightly longer in the distal esophagus. 02/21/22 ABD US SHOWED: 1.? Increased hepatic echogenicity suggesting hepatic steatosis. 2.? Nonobstructive calculus in the right renal lower pole measuring 3 mm. 02/[address] SCAN SHOWED:A cause for the patient's diffuse abdominal pain has not been found.Incidental note made of: 1.? Hepatic steatosis. 2.? Small stable adrenal nodule, unchanged over many years 3.? Status post hysterectomy. 08/[address] SCAN SHOWED:Mild bowel wall thickening of the sigmoid colon which could be due to mild colitis. There is no surrounding pericolonic edema however. There is no bowel obstruction. ENDOSCOPIC STUDIES: 12/12/23 FLEX SIG SHOWED: Flexible sigmoidoscopy Findings: Friable appearing mucosa with patchy erythema in the left colon without ulcerations - random biopsies were obtained. cw resolving colitis No polyps were detected. Moderate diverticulosis seen in the left colon No blood seen in the left colon during sigmoidoscopy Plan: Above findings were reviewed with the patient. BIOPSIES SHOWED: Colon, left, biopsy: Colonic mucosa with lamina propria hemorrhage, partial surface epithelial loss, and scattered neutrophils consistent with active colitis (see comment). Comment: The differential includes infectious, early ischemia, drugs, diverticular disease, and early Crohn's. There is no evidence of chronic colitis, granulomas or dysplasia 05/2023 CAPSULE ENDOSCOPY SHOWED: Findings: Lower esophagus looked normal, stomach with granular mucosa and patchy erythema consistent with chronic gastritis small bowel entered at 2 hr 36 min min. Mucosa well visualized and appeared normal, no masses, lesions or ulcers seen. cecum entered at 4 hr 44 min and colonic mucosa looked normal Conclusion: chronic gastritis, other santiago neg small bowel study 06/15/22 EGD SHOWED:ESOPHAGUS: Tortuous esophagus with increased tertiary contractions without stricture or ring.?GE junction at 36 cms. No esophagitis or Austin's.STOMACH: Moderate diffuse gastric erythema - no ulcers were seen. Biopsies were obtained from gastric antrum and body. DUODENUM: Normal - biopsied to check for celiac sprue Plan:? Further evaluation with a Duplex US to rule out small bowel ischemia [place] of Dicyclomine prn while awaiting further workup. BIOPSIES SHOWED: A.? Small bowel, biopsy:? Small bowel mucosa with preserved villi and no specific change; no evidence of celiac disease. B.? Gastric antrum, biopsy:? Chronic Helicobacter gastritis with minimal activity and focal intestinal metaplasia; negative for dysplasia.? C.? Gastric body, biopsy:? Chronic Helicobacter gastritis with minimal activity; negative for intestinal metaplasia and dysplasia. 03/24/21 COLONOSCOPY SHOWED: No polyps were detected.Random biopsies were obtained from the right and left colon Moderate to severe diverticulosis seen in the entire colonOf note pt denies additional episodes of fecal incontinence. Plan:? Patient has an appointment on 04/20/21 in the GI Clinic with Ruth Roman M.D. Repeat Colonoscopy in 10 years if biopsies are normal. A handout on diverticulosis was were given in the discharge area BIOPSIES SHOWED: A.? Colon, right, biopsy:? Colonic mucosa within normal limits. B.? Colon, left, biopsy:? Colonic mucosa within normal limits. COMMENT: Diagnostic features of microscopic colitis are not seen. 08/2019:? Colonoscopy Findings:Edema, erythema with friable appearing mucosa and scattered ulcerations from 10to 30 cms - random biopsies obtained. Colon inflammation can be due to ischemiccolitis or stercoral ulcers related to constipation and irritation of the colon from hard stools. No polyps were detected Moderate to severe diverticulosis seen in the left colon. Plan: Await pathology results. Regular diet today. Start Miralax once daily for constipation. Continue IV antibiotics x 24 hours and then switch to PO antibiotics in the am for another 3 days. Patient to be scheduled for a FU appointment in the GI Clinic with Ruth Roman M.D. in 1-2 weeks. Above findings were reviewed with the patient. BIOPSIES SHOWED: Colon, left, biopsies: Colonic mucosa with focal superficial epithelial sloughing, hemorrhage and hyalinization possibly representing early ischemic colitis;? negative for dysplasia/malignancy [facility] Medical History (Updated 05/27/25 @ 15:47 by Alicia Yarbrough APRN) CAD (coronary artery disease) NSTEMI (non-ST elevated myocardial infarction) GERD (gastroesophageal reflux disease) Diverticulitis large intestine nursing home (current) use 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 Acute respiratory distress Tendonitis of ankle or foot Cough Stable angina Anxiety HLD (hyperlipidemia) HTN (hypertension) COPD exacerbation Hyperkalemia Atherosclerotic cardiovascular disease Hospital discharge follow-up Colitis CVA (cerebral vascular accident) (~2018) Breast pain, right Rash Bloody diarrhea PAD (peripheral artery disease) Hyperlipidemia LDL goal <100 COPD (chronic obstructive pulmonary disease) Infiltrating ductal carcinoma of left breast, stage 2 Insomnia Dyslipidemia Bipolar 1 disorder, depressed Cough Restrictive airway disease Hypothyroid IDDM (insulin dependent diabetes mellitus) Vitamin D deficiency Osteoporosis Breast cancer Hyperparathyroidism Thyroid nodule T2DM (type 2 diabetes mellitus) Depression Fibromyalgia Seropositive rheumatoid arthritis Reactive airways dysfunction syndrome Allergic rhinitis Irritable bowel Anxiety Bronchial asthma Diabetes type 2, uncontrolled Surgical History S/P laparoscopic colectomy (04/15/24) Hx of sigmoidoscopy History of bronchoscopy Hx of endoscopy H/O cardiac catheterization History of lumpectomy of left breast History of pubovaginal sling History of esophagogastroduodenoscopy (EGD) History of tubal ligation History of colonoscopy History of bunionectomy of both great toes H/O: hysterectomy Family History Mother Diabetes HTN (hypertension) Uterus cancer Malignant tumor of head Breast cancer Father Diabetes HTN (hypertension) CVD (cardiovascular disease) Heart problem Maternal Aunt Breast cancer Brother Myocardial infarction S/P CABG x 4 Family/Other FH: mental illness Family/Other Lung cancer Other Mental health disorder Social History Household Members: Family Household Members Other:: sister Housing: House Are you a primary care services manager to a significant other at home: No Do you presently have visiting nurse or other home services: No Unable to assess alcohol history related to: Unknown Alcohol intake: never Comment: Low fall Patient Tobacco Use Status: Current everyday Tobacco user Tobacco use type: Cigarette Cigarette Packs Per Day: 0.5 Years Smoked: 48 e-Cigarette/Vaping Use: Never Used Second Hand Smoke Exposure: No Substance Use Type: Marijuana Advance Directives Date on File: 12/22/21 service: No Current occupational status: disabled Current occupation: rt handed Cognitive needs: No Hearing needs: No Vision needs: Yes Review of Systems Const All systems reviewed & are unremarkable except as noted in HPI and below Physical Exam Vital Signs: Last Vital Signs Pulse 68 05/13/25 11:46 BP 94/55 L 05/13/25 11:46 Pulse Ox 95 05/13/25 11:46 Oxygen Delivery Method Room Air 05/13/25 11:46 BMI result Body Mass Index 21.3 Const General: no acute distress Nutritional Appearance: average body habitus Orientation/consciousness: patient oriented x3 Limitations: no limitations HEENT Head: Yes normal to inspection Ears: hearing grossly normal bilaterally Eyes Sclerae: sclerae normal Pupils: Equal, round and reactive pupils present Neck Neck: Yes normal visual inspection Chest Chest palpation & inspection: normal inspection of the chest Resp Effort & Inspection: normal respiratory effort Auscultation: clear to auscultation bilaterally Cardio Palpation: normal PMI Rate: regular rate Rhythm: regular rhythm Heart sounds: S1 normal heart sound present, S2 normal heart sound present and no murmurs GI Palpation (GI): Soft to palpation, nontender and No hepatosplenomegaly present Auscultation: normal bowel sounds Rectal Exam - Female: deferred Skin General skin exam: no rashes or lesions noted Neuro General: patient oriented x3, gait normal and moves all extremities Cranial nerves: Yes Equal, round and reactive pupils present Psych Appearance: grossly normal Mental Status: mental status grossly normal Assessment & Plan Assessment & Plan (1) GERD (gastroesophageal reflux disease): Code(s): K21.9 - Gastro-esophageal reflux disease without esophagitis Category: Medical (2) Colitis: Code(s): K52.9 - Noninfective gastroenteritis and colitis, unspecified Category: Medical (3) Gastroparesis: Code(s): K31.84 - Gastroparesis Category: Medical (4) Helicobacter pylori infection: Code(s): A04.8 - Other specified bacterial intestinal infections Category: Medical Plan 64 YF with rheumatoid arthritis--Halista @ [facility]-discharged, COPD, fibromyalgia, asthma, Elevated levels of transaminases? & lactic acid dehydrogenase, Hepatic steatosis Thalamic pain syndrome,? H. pylori infection - treated, IBS (irritable bowel syndrome), TIA'S, urinary incontinence, chronic bronchitis, anxiety, depression, diabetes mellitus, left breast? cancer. Patient followed in GI for GERD and long standing constipation?likely due to IBS with constipation/ slow transit due to medications. Partial? improvement with Senna 1-2 tablet at? bedtime. Patient was diagnosed with Helicobacter pylori gastritis on EGD in?06/2018 and was treated with triple therapy. 06/2021 FU stool antigen for H pylori was negative Pt was advised to start Pantoprazole twice daily for GERD She has a hx of dysphagia likely due to esophageal motility disorder - no stricture or EOE noted on past EGD. Pt has been followed recently for upper abdominal pain, nausea and vomiting with decreased PO intake and wt loss 06/15/22 EGD was performed in findings as noted above Pt was advised to use a Foam Wedge at night and take famotidine at bedtime for nighttime reflux symptoms. If symptoms persist she may need further evaluation with Esophageal manometry and pH testing prior to considering fundoplication. 01/10/23 Pt seen with worsening symptoms, stopped taking Pantoprazole 2 months ago and advised to resume and take Famotidine prn for breakthrough symptoms 02/01/23 Pt complains of abd pain, bloating with diarrhea and black stools x past 3 days with weakness and dizziness Patient was advised to go to [facility] ER for further evaluation with labs and repeat CT scan (for Fu of ischemic colitis) Pt had a stable Hct and stool occult blood was negative 04/05/23 Pt advised to have labs and schedule an abd US with doppler to rule out mesenteric ischemia which was negative Stool calprotectin was borderline at 92. C1q, C1 estrase inhibitor protein and C4 were normal 04/29/23 IBD serologies were suggestive of Crohn's disease 06/03/23 Capsule Endoscopy showed: Conclusion: chronic gastritis, other santiago neg small bowel study . 08/16/23 Pt advised to start Lialda 2.4 grams daily for suspected Crohn's disease (Abd pain, nausea, fecal calprotectin of 92 and IBD serologies positive for Crohn's disease) Referral was sent to urology for follow-up of kidney stones Records requested from [facility] ER visit on 08/10/23 09/19/23 Continues to have nausea, bloating, gas and poor appetite Notes early satiety and denies vomiting. Hx of long standing DM. Pt advised to increase Amitiza to 16 mcg twice a day and to schedule a GES 01/23/24 Prescribed Trulance and was not covered by her insurance. Has a BM once a week when she is constipated. Started on MTX 15 mg once a week for RA by her Program Professional which should help her Crohn's disease Complains of pain and tinging in her left foot and has a FU appt with her PCP on 01/29/24 06/04/24 Notes resolution of abdominal pain after hand assisted laparoscopic sigmoid colectomy with colorectal anastomosis Continues to have constipation and planning to start Senna 08/04/24 Pt advised to resume Pantoprazole 40 mg daily Increase fluid intake H Pylori breath test today Continue to work on quitting smoking 09/24/24 08/04/24 H Pylori breath test was positive and pt was treated with Bismuth, Tetracycline and Levofloxacin (Failed Calrithromycin) Finished antibiotics last week - Tetracycline and Levo Resumed MTX - noted pain in her knees and big toe while she was off the MTX. Constipated last week - forgot to go to the bathroom. Started taking the Senna twice a day - finally able to go after 3 days. 11/19/23 Seen at [facility] on 11/16/24 - had sharp stabbing pains in the abdomen every time she eats or drinks anything. Pain started 2 weeks after she was admitted to [facility] 10/19/24 with an OH Pt had a burning and bad stabbing pain in the upper abdomen radiating to LUQ. Abd pain comes and goes every time she eats and drinks anything - gets nauseated Can have intermittent vomiting if the nausea is bad - smells and tastes like beer. Also complains of loose to soft stools Pt has mild gastroparesis on GES in the past (13% at 4 hrs) Pt advised stool studies Start metoclopramide 5 mg TID for gastroparesis. She will be scheduled for an EGD for further evaluation of abdominal pain 04/30/25 EGD SHOWED: Endoscopy Findings: ESOPHAGUS: Small hiatal hernia from 34-35 cm. Mildly tortuous esophagus without stricture or ring Empiric balloon dilation of the distal esophagus was performed with a 20 mm CRE balloon x 60 seconds Balloon dilation of the proximal esophagus was performed with an 18 mm CRE balloon x 60 seconds STOMACH: Moderate diffuse gastritis DUODENUM: Normal - biopsied to check for celiac sprue. BIOPSIES SHOWED: A. Duodenum, biopsy: Duodenal mucosa within normal limits; preserved villous architecture and no increase in intraepithelial lymphocytes; negative for gastric foveolar metaplasia/dysplasia. B. Stomach, antrum, biopsy: H pylori gastritis with extensive intestinal metaplasia; negative for dysplasia/malignancy. C. Stomach, body, biopsy: H pylori gastritis; negative for intestinal metaplasia/dysplasia/malignancy. D. Esophagus, distal, biopsy: Squamous mucosa within normal limits; negative for inflammation/fungal organisms/dysplasia/malignancy. E. Esophagus, proximal, biopsy: Squamous mucosa within normal limits; negative for inflammation/ fungal organisms/dysplasia/malignancy Plan: Repeat EGD in 3 years for FU of gastric intestinal metaplasia. 05/13/25 Pt prescribed the following regimen for recurrent H pylori gastritis Pantoprazole 40 mg twice daily x 14 days Levofloxacin 500 mg once a day x 14 days Amox 1 gram TID x 14 days FU last week of June for H Pylori breath test Linzess 145 mcg daily for constipation. FU in 3 months - scheduled 08/19/25 Medications: New linaclotide (Linzess) 145 mcg PO QAM 30 caps 3RF 30 days Coding Level of Care Code Est Pt Level 3 (51519) Diagnoses Gastroesophageal reflux disease without esophagitis K21.9 Colitis K52.9 Gastroparesis K31.84 Helicobacter pylori infection A04.8 Time Spent (min) 21
[2025-05-13 11:46] VITALS: BP 94/55; PULSE 68; O2SAT 95; BMI 21.3
--- OUTSIDE RECORDS SUMMARY | 2025-05-13 13:01 | XMS_ITS | Data Portability ---
Author Organization [facility] Address [address] [place] [address] Care Team Providers Care Evaluation Advisor Name Role Phone HIM CATHY Primary Care Provider Assessment Encounter Date Assessment Date Assessment LastModified by Organization Details LastModified Time 03/27/2024 03/27/2024 I provided real -time medical direction via phone for this encounter, and was available for additional phone based assistance as needed. I have reviewed and agree with the Assessment and Plan as documented by the Reimbursement Liaison. We discussed the diagnostic uncertainty of home [...] for evaluation and management. Report called to [facility] ER [email or web address] Not available 03/27/2024 13:41:34 Plan of Treatment [...] available 03/27/2024 6 RxNorm Radha Fernández MD [address] [place] [address],[address], [place], [address] [facility] 13:34:28 Medications Name Sig Start Date Stop [...] No t Available duloxetine 30 mg capsule,roya wolfgangd release TAKE 1 CAPSULE ORALLY DAILY DAILY [...] 4 114 /min 20 /min 121.92 cm 17327 g 94 % 94 % 98.8 [degF] [...] SNOMED-CT Code Diagnosis ICD10 Code Diagnosis Note [id number] Radha Fernández MD Main - instED [address] [place] [phone] 03/27/2024 13:23:51 03/29/2024 11:48:16 Diverticulitis [id number] K57.92 Health Concerns Section Related Observation LastModified by Organization Detai ls LastModified Time None Recorded Concern Status LastModified by Organization Details LastModified Time None Recorded Advance Directives Directive None Recorded Payers Insurance Date Sequence Insurance Name Policy Number Policy Charles Covered Member ID Charles Member ID Guarantor Name 03/29/2024 1 [facility] - DOS ON OR AFTER 2023 - DUAL ELIGIBLE - RESIDENTIAL OPTIONS AND ONE CARE (MEDICARE REPLACEMENT/ADV ANTAGE - HMO) Sosa Joiner [id number] Sosa Joiner Notes Date Note Type Note [...] was seen in the ER 03/25 at [facility] -CT attached. She has been complaining of a frontal headache -CT head and neck were negative for acute disease in the ER -she is complaining of severe abdominal pain Reimbursement Liaison POC Test Results from Amy Montana - [facility] Blood Glucose Measurement (1) [14:39] Blood Glucose: 149 mg/dL .................... .................... .................... .................... .................... .................... .................... . Reimbursement Liaison Note From Amy Montana: Sent to a [...] d CT scans performed (results uploaded to [facility]) at [place] ED on 03/25 and prescribed Levofloxacin 500mg [...] narcotics for pain during flares. [facility]. Pt declines [facility]/venous blood draw, stating she would prefer to go to ED. [facility] consulted and orders BG as pt does not check BG regularly. Pt states she usually uses CGM, but ran out, and hasn't used glucometer for over 1 week. B; [facility] calls report to [facility] ED. 911 contacted and pt care transferred to [facility] crew. Pt transported to [facility] ED via [place]. .................... .................... .................... .................... .................... .................... .................... . Disposition: Fulfilled Radha Fernández MD [address] [facility],[address] [facility], [place], [address], NATA - EDD MAO 03/27/2024 14:55:37 OBGyn Episode No OBEpisode recorded.
== END 2025-05-13 12:28 | disposition home or self-care (01) ==
LOC: HO.HGI 10:56
PROVIDERS: PCP Internal Medicine; Visit Provider Internal Medicine Gastroenterology
DX: K21.9 Gastro-esophageal reflux disease without esophagitis (principal); K52.9 Noninfective gastroenteritis and colitis, unspecified; K31.84 Gastroparesis; A04.8 Other specified bacterial intestinal infections
CPT/HCPCS: 99213

== ENCOUNTER → 2025-05-13 10:55 | Outpatient (BNVA) | payer OTHER, SELFPAY ==
[2025-04-13 11:19] VITALS: BP 96/60; BP 96/66; BMI 22.5
== END ==
PROVIDERS: PCP Internal Medicine; Visit Provider Internal Medicine Gastroenterology
DX: K21.9 Gastro-esophageal reflux disease without esophagitis (principal); K52.9 Noninfective gastroenteritis and colitis, unspecified; K31.84 Gastroparesis; A04.8 Other specified bacterial intestinal infections
CPT/HCPCS: 99212

== ENCOUNTER 2025-05-27 09:34 | Outpatient (AMB) | payer OTHER, SELFPAY ==
[2025-04-13 11:19] VITALS: BP 96/60; BP 96/66; BMI 22.5
--- NOTE | 2025-05-27 09:53 | A.OFFPSYCH_ITS ---
Intake Intake Visit Reasons: consultation Technical Publications Manager Required: No Allergies methylprednisolone Allergy (Severe, Verified 05/19/25 08:24) Rash from Solu-Medrol shellfish derived Allergy (Intermediate, Verified 05/19/25 08:24) Hives etanercept (From Enbrel) Adverse Reaction (Severe, Verified 05/19/25 08:24) Facial Swelling metformin Adverse Reaction (Severe, Verified 05/19/25 08:24) Diarrhea metronidazole (From FLAGYL) Adverse Reaction (Severe, Verified 05/19/25 08:24) Diarrhea prednisone Adverse Reaction (Intermediate, Verified 05/19/25 08:24) hallucinations, more than 20 mg doses Medication List - Last Reconciled 05/27/25 by Alicia Yarbrough APRN albuterol sulfate 90 mcg/actuation 2 inhalations inhalation Q4H PRN aspirin 81 mg PO DAILY blood pressure monitor As directed blood pressure test kit-medium As directed blood sugar diagnostic (FreeStyle Lite Strips) Use 1 test strip three times a day ezeaxarflt-aiuzaddjdgkbo-fuxn 50-325-40 mg 1 tab PO Q6H PRN [clamp on tub safety rail As directed] clopidogrel 75 mg PO DAILY dulaglutide (Trulicity) 1.5 mg (0.5 mL) subcut TH@0900 [ez neurophysiological technician bed assist support As directed] famotidine 20 mg PO BEDTIME 90 days zjlzubadvec-nronosfjm-egxtzgyc 200-62.5-25 mcg (Trelegy Ellipta) 1 ea inhalation DAILY folic acid 1 mg PO DAILY hydroxychloroquine (Plaquenil) 200 mg PO DAILY lancets (FreeStyle Lancets) Use 1 lancet once a day linaclotide (Linzess) 145 mcg PO QAM 30 days lithium carbonate 150 mg PO BID melatonin 1 mg PO BEDTIME methotrexate sodium 17.5 mg (7 x 2.5 mg) PO QWEEK 90 days metoclopramide HCl (Reglan) 5 mg PO TID PRN 30 days metoprolol succinate ER 25 mg PO DAILY ondansetron 4 mg PO Q8H PRN pantoprazole 40 mg PO DAILY pen needle, diabetic USE 1 PEN NEEDLE 6 TIMES A DAY pregabalin 200 mg PO BID Shower Chair As directed simethicone 125 mg PO DAILY PRN tramadol 50 mg PO BID 30 days trazodone 100 mg PO BEDTIME 90 days trazodone 50 mg PO BEDTIME PRN 90 days walker with seat HPI- Psychiatric Chief Complaint: consultation HPI Narrative: pt reports mood continues to be depressed.she is tolerating the lithium but feels no response; she does not feel depression is better. She thinks she has TD after seeing commercial on TV for austedo. Pt says her faily have seen her facial movements as well; I see not TD like movements in her face, mouth, tongue area, trunk, arms, hands, or legs/feet. She would like referral to neurologist for evaluation of possible movement disorder. She denies SI or Hi Past Psychiatric History: one IPLOC years ago at ; was at [facility] for 3 years in past Subjective Subjective Subjective Medication Compliance: Yes Side effects from medications: No Review of Systems Medical Review of Systems: unchanged Mental Status Exam Mental Status Exam Patient Appearance: Well Grooomed and Appropriate Patient Orientation: Person, Place, Time and Situation Level of Consciousness: Awake and Appropriate Patient Behavior: Appropriate and Cooperative Mood Description: Depressed and Anxious Affect Description: Depressed and Anxious Patient Cognition Impaired: No Ability to Follow Directions: Good Speech Pattern: Clear and Coherent Memory Description: Intact Hallucinations: None Delusions: Not Present Thought Process: Intact and Goal Oriented Thought Content: positive for Intact and positive for Goal Oriented Judgement: Fair Assessment and Plan Assessment & Plan (1) Bipolar 1 disorder, depressed: Status: Acute Code(s): F31.9 - Bipolar disorder, unspecified Medications: Changed From lithium carbonate 150 mg PO .DAILY @0900 90 caps 0RF To lithium carbonate 150 mg PO BID 60 caps 2RF Orders: Referrals Neurology Referral G25.9 - Extrapyramidal and movement disorder, unspecified Counseling and coordination of Care Pt. Self Management counseling: Maintenance-social rhythm, Mod caffeine/ETOH intake, Nutrition education and improvement, Sleep hygiene, General coping skills and Problem solving Medication management counseling: Effectiveness, Side effects, Dosing range, Duration, Drug interaction and Adherence Diagnosis and Prognosis Counseling: Accuracy of diagnosis, Prognosis over time, Impact of diagnosis on life functions, Impact of family relationship, Problematic behaviors secondary to diagnosis and Adequacy of current interventions Details: I spent 39 minutes reviewing the record, seeing the patient and documenting in the medical record. Counseling provided to the patient/caregiver as outlined below. Addressed patient/caregiver concerns regarding current medication regime including effective adherence. Addressed patient/caregiver concerns regarding diagnosis and prognosis including accuracy of diagnosis, prognosis over time, impact of diagnosis. Addressed patient/caregiver concerns regarding impact of recent stressors. 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) use 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 Acute respiratory distress Tendonitis of ankle or foot Cough Stable angina Anxiety HLD (hyperlipidemia) HTN (hypertension) COPD exacerbation Hyperkalemia Atherosclerotic cardiovascular disease Hospital discharge follow-up Colitis CVA (cerebral vascular accident) (~2018) Breast pain, right Rash Bloody diarrhea PAD (peripheral artery disease) Hyperlipidemia LDL goal <100 COPD (chronic obstructive pulmonary disease) Infiltrating ductal carcinoma of left breast, stage 2 Insomnia Dyslipidemia Bipolar 1 disorder, depressed Cough Restrictive airway disease Hypothyroid IDDM (insulin dependent diabetes mellitus) Vitamin D deficiency Osteoporosis Breast cancer Hyperparathyroidism Thyroid nodule T2DM (type 2 diabetes mellitus) Depression Fibromyalgia Seropositive rheumatoid arthritis Reactive airways dysfunction syndrome Allergic rhinitis Irritable bowel Anxiety Bronchial asthma Diabetes type 2, uncontrolled Surgical History S/P laparoscopic colectomy (04/15/24) Hx of sigmoidoscopy History of bronchoscopy Hx of endoscopy H/O cardiac catheterization History of lumpectomy of left breast History of pubovaginal sling History of esophagogastroduodenoscopy (EGD) History of tubal ligation History of colonoscopy History of bunionectomy of both great toes H/O: hysterectomy Family History Mother Diabetes HTN (hypertension) Uterus cancer Malignant tumor of head Breast cancer Father Diabetes HTN (hypertension) CVD (cardiovascular disease) Heart problem Maternal Aunt Breast cancer Brother Myocardial infarction S/P CABG x 4 Family/Other FH: mental illness Family/Other Lung cancer Other Mental health disorder Social History Household Members: Family Household Members Other:: sister Housing: House Are you a primary home care liaison to a significant other at home: No Do you presently have visiting nurse or other home services: No Unable to assess alcohol history related to: Unknown Alcohol intake: never Comment: Low fall Patient Tobacco Use Status: Current everyday Tobacco user Tobacco use type: Cigarette Cigarette Packs Per Day: 0.5 Years Smoked: 48 e-Cigarette/Vaping Use: Never Used Second Hand Smoke Exposure: No Substance Use Type: Marijuana Advance Directives Date on File: 12/22/21 service: No Current occupational status: disabled Current occupation: rt handed Cognitive needs: No Hearing needs: No Vision needs: Yes Social History: lives with sister, 2 nephews and 1 son and nephew and his 9 month old son Substance History: none known Coding Level of Care Code Est Pt Level 4 (76283) Diagnoses Bipolar 1 disorder, depressed F31.9
--- OUTSIDE RECORDS SUMMARY | 2025-05-27 10:05 | XMS_ITS | Clinical Summary ---
Author Organization [facility] [employer] [facility] Address [address] [place] [address] Phone Care Team Providers Care Mailroom Clerk Name Role Phone Adela Wasserman MD Primary Care Provider [phone] Social History Tobacco Use Types Packs/Day Years [...] Annual BMP Blood Test 12/13/2024 Influenza Vaccine (#1) 2025 RSV Immunization Adult Patie nts (1 [...] patient's age to complete this topic Insurance [facility] MEDICARE Member Subscriber Plan / Payer (Ef fective 2023-Present) Name:Sosa Joiner Relation to Subscriber:Self Name:Sosa Joiner Payer ID:[id number] Group ID:[id number] Type:Not on file Address: [place] [address] [address] [place] [address] Care Teams Mailroom Clerk Relationship Specialty Start Date End Date Adela Wasserman MD [address] [place] [address] , [address] [facility] Physician Associ D/B/A: [facility] [place], [place] PCP - General Internal Medicine 12/08/24
--- OUTSIDE RECORDS SUMMARY | 2025-05-27 10:05 | XMS_ITS | Clinical Summary ---
Author Organization [facility] Address [address] [address] Phone Care Team Providers Care Section Gang Worker Name Role Phone Adela Gipson MD Primary Care Provider [phone] Allergies Active Allergy Reactions Criticality Noted Date [...] Hemoglobin A1C 08/24/2022 05/24/2022 Influenza Vaccine (#1) 2025 Hepatitis B Vaccine Aged Out No [...] Most Recently Relevant to Health Maintenance [place] [address] Care Teams Section Gang Worker Relationship Specialty Start Date End Date Adela Gipson MD [address] [place] [address] PCP - General Internal Medicine 05/28/22
--- OUTSIDE RECORDS SUMMARY | 2025-05-27 10:05 | XMS_ITS | Data Portability ---
Author Organization [facility] Address [address] [place] [phone] Care Team Providers Care Terrazzo Worker Helper Name Role Phone HIM CATHY Primary Care Provider Assessment Encounter Date Assessment Date Assessment LastModified by Organization Details LastModified Time 03/27/2024 03/27/2024 I provided real -time medical direction via phone for this encounter, and was available for additional phone based assistance as needed. I have reviewed and agree with the Assessment and Plan as documented by the Automation Technician. We discussed the diagnostic uncertainty of home [...] for evaluation and management. Report called to [facility] ER [email or web address] Not available 03/27/2024 13:41:34 Plan of Treatment [...] available 03/27/2024 6 RxNorm Radha Fernández MD [address] [place] [address],[address], [place], [address] [facility] 13:34:28 Medications Name Sig Start Date Stop [...] blood by Pulse oximetry Body temperature Systolic And Diastolic Provider Name and Address Organization Details Last Updated DateTime 4 114 /min 20 /min 121.92 cm 98931 g 94 % 94 % 98.8 [degF] 129/83 mm[Hg] Not Available [facility] - production 4 [...] SNOMED-CT Code Diagnosis ICD10 Code Diagnosis Note [id number] Radha Fernández MD Main - [address] [address] 03/27/2024 13:23:51 03/29/2024 11:48:16 Diverticulitis [id number] K57.92 Health Concerns Section Related Observation LastModified by Organization Detai ls LastModified Time None Recorded Concern Status LastModified by Organization Details LastModified Time None Recorded Advance Directives Directive None Recorded Payers Insurance Date Sequence Insurance Name Policy Number Policy Charles Covered Member ID Charles Member ID Guarantor Name 03/29/2024 1 [facility] - DOS ON OR AFTER 2023 - DUAL ELIGIBLE - DETENTION OPTIONS AND ONE CARE (MEDICARE REPLACEMENT/ADV ANTAGE - HMO) Sosa Joiner [id number] Sosa Joiner Notes Date Note Type Note [...] was seen in the ER 03/25 at [facility] -CT attached. She has been complaining of a frontal headache -CT head and neck were negative for acute disease in the ER -she is complaining of severe abdominal pain Automation Technician POC Test Results from Amy Montana - [facility] Blood Glucose Measurement (1) [14:39] Blood Glucose: 149 mg/dL .................... .................... .................... .................... .................... .................... .................... . Automation Technician Note From Amy Montana: Sent to a [...] d CT scans performed (results uploaded to [facility]) at [place] ED on 03/25 and prescribed Levofloxacin 500mg [...] narcotics for pain during flares. [facility]. Pt declines IV access/venous blood draw, stating she would prefer to go to ED. [facility] [place] and orders BG as pt does not check BG regularly. Pt states she usually uses CGM, but ran out, and hasn't used glucometer for over 1 week. B; [facility] [place] [facility] ED. 911 contacted and pt care transferred to [facility] crew. Pt transported to [facility] ED via [place]. .................... .................... .................... .................... .................... .................... .................... . Disposition: Fulfilled Radha Fernández MD [address] [facility],[address], [place], [address], NATA - [employer]D TOLBERT 03/27/2024 14:55:37 OBGyn Episode No OBEpisode recorded.
== END 2025-05-27 10:01 | disposition home or self-care (01) ==
LOC: HO.HOP 09:34
PROVIDERS: PCP Internal Medicine; Visit Provider Clinical Nurse Specialist Psychiatric/Mental Health
DX: F31.9 Bipolar disorder, unspecified (principal)
CPT/HCPCS: 99214

== ENCOUNTER → 2025-05-27 09:34 | Outpatient (BNVA) | payer OTHER, SELFPAY ==
[2025-04-13 11:19] VITALS: BP 96/60; BP 96/66; BMI 22.5
== END ==
PROVIDERS: PCP Internal Medicine; Visit Provider Clinical Nurse Specialist Psychiatric/Mental Health
DX: F31.9 Bipolar disorder, unspecified (principal); Z79.82 Long term (current) use of aspirin; Z79.85 Long-term (current) use of injectable non-insulin antidiabetic drugs; Z79.899 Other long term (current) drug therapy
CPT/HCPCS: 99212

== ENCOUNTER → 2025-06-01 08:15 | Outpatient (BNV) | payer OTHER, SELFPAY ==
[2025-04-13 11:19] VITALS: BP 96/60; BP 96/66; BMI 22.5
== END ==
PROVIDERS: PCP Internal Medicine; Visit Provider Radiology Diagnostic Radiology
DX: E28.39 Other primary ovarian failure (principal)
CPT/HCPCS: 77081

== ENCOUNTER 2025-06-01 08:16 | Outpatient (REF) | payer OTHER, SELFPAY ==
[2025-04-13 11:19] VITALS: BP 96/60; BP 96/66; BMI 22.5
--- NOTE | ~2025-06-01 | MM_ITS ---
EXAMINATION: DXA BONE DENSITY EXTREMITY HISTORY: M81.0 - Age-related osteoporosis without current pathological fracture TECHNIQUE: Kimble Dual energy absorptiometry (DEXA) of the lumbar spine, total left hip, femoral neck, and distal radius was performed. COMPARISON: Comparison is made with the prior examination dated 05/06/2023. FINDINGS: The bone mineral density of the lumbar spine is 0.914 g/cm2, corresponding to a T-score of -2.2, and a Z-score of -0.2. This is indicative of osteopenia. This represents a BMD change of -2.1% compared to the prior exam. This is not statistically significant. The bone mineral density of the left total hip is 0.811 g/cm2, corresponding to a T-score of -1.6, and a Z-score of -0.1. This is indicative of osteopenia. This represents a BMD change of -6.7% compared to the prior exam. This is statistically significant. The bone mineral density of the left femoral neck is 0.742 g/cm2, corresponding to a T-score of -2.1, and a Z-score of -0.4. This is indicative of osteopenia. This represents a BMD change of -4.0% compared to the prior exam. The bone mineral density of the distal radius is 0.657 g/cm2, corresponding to a T-score of -2.5, and a Z-score of -1.3. This is indicative of osteoporosis. This represents a BMD change of -2.7% compared to the prior exam. This is not statistically significant. MM/XR DEXA appendicular skeleton IMPRESSION: Based on bone mineral density, and according to World Health Organization (WHO) criteria, the diagnosis is consistent with osteoporosis. Statistically, 68% of repeat scans fall within 1 SD (+/- 0.010 g/cm2 for AP spine L1-L4) and 1 SD (+/- 0.012 g/cm2 for femur total) FRAX is a trademark of the [employer]'s [facility] Metabolic Bone Disease, a World Health Organization (WHO) Collaborating Center. Electronically signed by: Hernandez Darling MD 06/01/2025 12:28 PM EDT
--- OUTSIDE RECORDS SUMMARY | 2025-06-01 08:21 | XMS_ITS | Data Portability ---
Author Organization [email or web address], [facility] Address [address] [place] [address] Care Team Providers Care Dental Practice Manager Name Role Phone HIM CCA Primary Care Provider Assessment Encounter Date Assessment Date Assessment LastModified by Organization Details LastModified Time 03/27/2024 03/27/2024 I provided real -time medical direction via phone for this encounter, and was available for additional phone based assistance as needed. I have reviewed and agree with the Assessment and Plan as documented by the Sales And Marketing Director. We discussed the diagnostic uncertainty of [...] for evaluation and management. Report called to [facility] ER Not available 03/27/2024 13:41:34 Plan [...] available 03/27/2024 6 RxNorm Radha Fernández MD [address] [place] [address],[address], [place], [address] [facility] [email or web address] 13:34:28 Medications Name Sig Start Date Stop [...] 4 114 /min 20 /min 121.92 cm 08412 g 94 % 94 % 98.8 [degF] [...] SNOMED-CT Code Diagnosis ICD10 Code Diagnosis Note [id number] Radha Fernández MD Main - [address] [address] 03/27/2024 13:23:51 03/29/2024 11:48:16 Diverticulitis [id number] K57.92 Health Concerns Section Related Observation LastModified by Organization Detai ls LastModified Time None Recorded Concern Status LastModified by Organization Details LastModified Time None Recorded Advance Directives Directive None Recorded Payers Insurance Date Sequence Insurance Name Policy Number Policy Charles Covered Member ID Charles Member ID Guarantor Name 03/29/2024 1 [facility] - DOS ON OR AFTER 2023 - DUAL ELIGIBLE - FDC OPTIONS AND ONE CARE (MEDICARE REPLACEMENT/ADV ANTAGE - HMO) Sosa Joiner [id number] Sosa Joiner Notes Date Note Type Note [...] was seen in the ER 03/25 at [facility] -CT attached. She has been complaining of a frontal headache -CT head and neck were negative for acute disease in the ER -she is complaining of severe abdominal pain Sales And Marketing Director POC Test Results from Amy Montana - [facility] Blood Glucose Measurement (1) [14:39] Blood Glucose: 149 mg/dL .................... .................... .................... .................... .................... .................... .................... . Sales And Marketing Director Note From Amy Montana: Sent to [...] CT scans performed (results uploaded to [facility]) at [place] ED on 03/25 and prescribed Levofloxacin 500mg [...] narcotics for pain during flares. Pt [facility]. Pt declines IV access/venous blood draw, stating she would prefer to go to ED. [facility] consulted and orders BG as pt does not check BG regularly. Pt states she usually uses CGM, but ran out, and hasn't used glucometer for over 1 week. B; [facility] calls report to [facility] ED. 911 contacted and pt care transferred to [facility] crew. Pt transported to [facility] ED via [place]. .................... .................... .................... .................... .................... .................... .................... . Disposition: Fulfilled Radha Fernández MD [address] [facility],[address], [place], [address], NATA - [employer] Investments[employer]D TOLBERT 03/27/2024 14:55:37 OBGyn Episode No OBEpisode recorded.
--- OUTSIDE RECORDS SUMMARY | 2025-06-01 08:21 | XMS_ITS | Clinical Summary ---
Author Organization [facility] [employer] [facility] Address [address] [place] [address] Phone Care Team Providers Care Insulation Hoseman Name Role Phone Adela Wasserman MD Primary Care Provider [phone] Social History Tobacco Use Types Packs/Day Years [...] patient's age to complete this topic Insurance [facility] MEDICARE Member Subscriber Plan / Payer (Ef fective 2023-Present) Name:Sosa Joiner Relation to Subscriber:Self Name:Sosa Joiner Payer ID:[id number] Group ID:[id number] Type:Not on file Address: [place] [address] [address] [address] Care Teams Insulation Hoseman Relationship Specialty Start Date End Date Adela Wasserman MD [address] [place] [address] , [address] [facility] Physician Associ D/B/A: [facility] [place], [place] PCP - General Internal Medicine 12/08/24
--- OUTSIDE RECORDS SUMMARY | 2025-06-01 08:21 | XMS_ITS | Clinical Summary ---
Author Organization [facility] Address [address] [place] [address] Phone Care Team Providers Care Solderer Dipper Name Role Phone Adela Gipson MD Primary Care Provider [phone] Allergies Active Allergy Reactions Criticality Noted Date [...] Most Recently Relevant to Health Maintenance [place] [address] Care Teams Solderer Dipper Relationship Specialty Start Date End Date Adela Gipson MD [address] [place] [address] PCP - General Internal Medicine 05/28/22
== END 2025-06-01 08:17 | disposition home or self-care (01) ==
LOC: HO.MAMMO 08:16
PROVIDERS: PCP Internal Medicine; Visit Provider Student in an Organized Health Care Education/Training Program
DX: S62.111A Displaced fracture of triquetrum [cuneiform] bone, right wrist, initial encounter for closed fracture (principal); F17.210 Nicotine dependence, cigarettes, uncomplicated; E11.9 Type 2 diabetes mellitus without complications; M05.9 Rheumatoid arthritis with rheumatoid factor, unspecified; M79.643 Pain in unspecified hand; M79.7 Fibromyalgia; M81.0 Age-related osteoporosis without current pathological fracture; W19.XXXA Unspecified fall, initial encounter; Y92.89 Other specified places as the place of occurrence of the external cause; Y93.89 Activity, other specified; Y99.8 Other external cause status
CPT/HCPCS: 77081; 99212

== ENCOUNTER 2025-06-01 08:54 | Emergency (ER) | payer OTHER, SELFPAY ==
[2025-04-13 11:19] VITALS: BP 96/60; BP 96/66; BMI 22.5
[2025-06-01 09:25] VITALS: BP 123/75; PULSE 70; RESP 16; TEMP 36.3; O2SAT 98; BMI 21.7
--- NOTE | 2025-06-01 09:29 | ED_ITS ---
HPI - Abdominal Pain General Chief Complaint: Abdominal Pain Stated Complaint: vaginal itch , nausea Time Seen by Provider: 06/01/25 09:33 Source: patient and old records reviewed Mode of arrival: ambulatory Limitations: no limitations History of Present Illness ED Provider: PRETTY COPPOLA narrative: 64 yo female with PMH of CAD, hypothyroidism, STEMI, GERD, now here with course of h pylori on levofloxacin and amoxicillin but she has nausea and dysuria with vaginal itching. At this time no CP/SOB. She has been on the antibiotics for 4 days. SHe denies CP/SOB, no fevers. She states the medications are upsetting her stomach. She has not been on these before. She is able to eat and drink. MD elicited complaint: other (nausea/vaginal itching) Onset (ago): day(s) (2) Pain Consistency: intermittent Location: epigastric Severity: mild Quality: aching Radiation: none Migration to: no migration Exacerbating factors: eating and medication Relieving factors: nothing Context: other Associated symptoms: nausea and other (vaginal itching) Related Data Home Medications ?Medication ?Instructions ?Recorded ?Confirmed albuterol sulfate 90 mcg/actuation 2 inh inhalation Q4 H PRN Shortness 08/23/23 05/27/25 aerosol inhaler Of Breath Or Wheezing fluticasone fur. 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 #1 ea 01/15/24 ondansetron 4 mg disintegrating 4 mg PO Q8H PRN nausea and 02/19/24 tablet vomiting #20 tabs simethicone 125 mg capsule 125 mg PO DAILY PRN gas monster n #30 04/28/24 caps nigsbdtzku-ttsigvslyikwb-dyyqbpvw 1 tab PO Q6H PRN hae adace #20 tabs 10/18/24 50 mg-325 mg-40 mg tablet blood pressure monitor #1 ea 11/04/24 blood pressure test kit-medium #1 ea 11/04/24 trazodone 50 mg tablet 50 mg PO BEDTIME PRN sleep 9 0 days 11/04/24 #90 tabs metoclopramide HCl 5 mg tablet 5 mg PO TID PRN nausea and 11/19/24 (Reglan) vomiting 30 days #90 tabs lancets 28 gauge (FreeStyle #100 ea 12/09/24 Lancets) hydroxychloroquine 200 mg tablet 200 mg PO DAILY #90 t abs 12/23/24 (Plaquenil) clopidogrel 75 mg tablet 75 mg PO DAILY #100 tabs trazodone 100 mg tablet 100 mg PO BEDTIME 90 days #9 0 tabs 02/10/25 metoprolol succinate 25 mg 25 mg PO DAILY #90 tabs tablet,extended release 24 hr pantoprazole 40 mg tablet,delayed 40 mg PO DAILY #90 t abs 02/12/25 release pen needle, diabetic 31 gauge x #100 ea 03/22/2504/02 famotidine 20 mg tablet 20 mg PO BEDTIME 90 days #90 tabs 04/06/25 aspirin 81 mg tablet,delayed 81 mg PO DAILY #90 tabs 0 04/15/25 release folic acid 1 mg tablet 1 mg PO DAILY #90 tabs 04/27 methotrexate sodium 2.5 mg tablet 17.5 mg (7 x 2.5 mg) PO QWEEK 90 04/27/25 days #91 tabs pregabalin 200 mg capsule 200 mg PO BID #60 caps 04/27 tramadol 50 mg tablet 50 mg PO BID pain 30 days #6 0 tabs 04/27/25 melatonin 1 mg tablet 1 mg PO BEDTIME for insomnia #90 05/03/25 tabs blood sugar diagnostic (FreeStyle #100 ea 05/05/25 Lite Strips) linaclotide 145 mcg capsule 145 mcg PO QAM 30 days #30 caps 05/13/25 (Linzess) amoxicillin 500 mg tablet 1,000 mg (2 x 500 mg) PO Q8H 14 05/27/25 days #84 tabs levofloxacin 500 mg tablet 500 mg PO DAILY 14 days #14 tabs 05/27/25 lithium carbonate 150 mg capsule 150 mg PO BID #60 cap s 05/27/25 pantoprazole 40 mg tablet,delayed 40 mg PO BID 14 days #28 tabs 05/27/25 release fluconazole 150 mg tablet 150 mg PO Q3D 2 doses #2 tab s 06/01/25 ondansetron 4 mg disintegrating 4 mg PO Q8H PRN nausea and 06/01/25 tablet vomiting #20 tabs Allergies Allergy/AdvReac Type Severity Reaction Status Date / Time methylprednisolone Allergy Severe Rash from Verified 06/01/25 09:31 Solu-Medrol shellfish derived Allergy Intermediate Hives Verified 06/01/25 09:31 etanercept (From Enbrel) AdvReac Severe Facial Verified 06/01/25 09:31 Swelling metformin AdvReac Severe Diarrhea Verified 06/01/25 09:31 metronidazole (From FLAGYL) AdvReac Severe Diarrhea Verified 06/01/25 09:31 prednisone AdvReac Intermediate hallucinations, Verified 06/01/25 09:31 more than 20 mg doses Review of Systems Review of Systems Constitutional : No Weight loss, No Fever, No Chills ENT/Mouth : No sore throat, No Rhinorrhea Eyes: No Swelling, No Redness Cardiovascular : No Chest Pain, No SOB, NoEdema Respiratory : No Cough, No Sputum, No Wheezing Gastrointestinal : Positive Nausea, no Vomiting, no Diarrhea, positive abdominal Pain, No Hematochezia, No Melena Genitourinary : No Dysuria, No Urinary Frequency, No Hematuria, No Urgency , pos vaginal itching Musculoskeletal : No joint pain, No Myalgias, No Joint Swelling Skin : No Skin Lesions, No rash Neuro : No Weakness, No Numbness, No Dizziness, No Headache All other systems reviewed and are negative. [facility], [facility] Past Medical History Attestation statement: The following information was validated with the patient. 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 (current) use 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 Acute respiratory distress Tendonitis of ankle or foot Cough Stable angina Anxiety HLD (hyperlipidemia) HTN (hypertension) COPD exacerbation Hyperkalemia Atherosclerotic cardiovascular disease Hospital discharge follow-up Colitis CVA (cerebral vascular accident) (~2018) Breast pain, right Rash Bloody diarrhea PAD (peripheral artery disease) Hyperlipidemia LDL goal <100 COPD (chronic obstructive pulmonary disease) Infiltrating ductal carcinoma of left breast, stage 2 Insomnia Dyslipidemia Bipolar 1 disorder, depressed Cough Restrictive airway disease Hypothyroid IDDM (insulin dependent diabetes mellitus) Vitamin D deficiency Osteoporosis Breast cancer Hyperparathyroidism Thyroid nodule T2DM (type 2 diabetes mellitus) Depression Fibromyalgia Seropositive rheumatoid arthritis Reactive airways dysfunction syndrome Allergic rhinitis Irritable bowel Anxiety Bronchial asthma Diabetes type 2, uncontrolled Surgical History S/P laparoscopic colectomy (04/15/24) Hx of sigmoidoscopy History of bronchoscopy Hx of endoscopy H/O cardiac catheterization History of lumpectomy of left breast History of pubovaginal sling History of esophagogastroduodenoscopy (EGD) History of tubal ligation History of colonoscopy History of bunionectomy of both great toes H/O: hysterectomy Family History Family History Mother Diabetes HTN (hypertension) Uterus cancer Malignant tumor of head Breast cancer Father Diabetes HTN (hypertension) CVD (cardiovascular disease) Heart problem Maternal Aunt Breast cancer Brother Myocardial infarction S/P CABG x 4 Family/Other FH: mental illness Family/Other Lung cancer Other Mental health disorder Social History Social History Household Members: Family Household Members Other:: sister Housing: House Are you a primary childcare worker to a significant other at home: No Do you presently have visiting nurse or other home services: No Unable to assess alcohol history related to: Unknown Alcohol intake: never Comment: Low fall Patient Tobacco Use Status: Current everyday Tobacco user Tobacco use type: Cigarette Cigarette Packs Per Day: 0.5 Years Smoked: 48 e-Cigarette/Vaping Use: Never Used Second Hand Smoke Exposure: No Substance Use Type: Marijuana Advance Directives: Yes Advance Directives on File: Yes Advance Directives Date on File: 12/22/21 Do you have a plan to hurt others: No Plan service: No Current occupational status: disabled Current occupation: rt handed Cognitive needs: No Hearing needs: No Vision needs: Yes Physical Exam ED Vital Signs: Vital Signs - 24 hr 06/01/25 09:25 06/01/25 09:54 Temperature 97.4 F Pulse Rate 70 70 Respiratory Rate 16 16 Blood Pressure 123/75 Pulse Oximetry 98 Oxygen Delivery Method Room Air BMI result Body Mass Index 21.7 Appearance: Alert. Oriented X3. No acute distress. Eyes: Pupils equal, round and reactive to light. ENT: Pharynx normal. Neck: Normal inspection. Neck supple. CVS: Normal heart rate and rhythm. Pulses normal. Respiratory: No respiratory distress. Breath sounds very faint end exp wheeze Abdomen: Soft and nontender. Skin: Skin warm and dry. Normal skin color. Extremities: No lower extremity edema. Neuro: Oriented X 3. No motor deficit. No sensory deficit. CN2-12 intact Medical Decision Making Medical Decision Making [facility] Narrative: 64 yo female with PMH of CAD, hypothyroidism, STEMI, GERD, now here with course of h pylori on levofloxacin and amoxicillin now with nausea and vaginal itching. SHe has no other symptoms such as chest pain/SOB, her abdominal exam is benign. Suspect nausea due to medications and her vaginal itching is due to amoxicillin. UA, EKG. she ran out of her inhaler as well I did order one for now. No resp distress. No leg edema Differential Diagnosis Differential Diagnoses: The differential diagnosis associated with the presentation includes vaginitis, nausea from medications, no cp/sob. abd exam is benign Admission/Observation Consideration of admission/observation: Escalation of care including admission/observation considered EKG unchanged work up reassuring stable for DC Lab Data [facility] Lab Attestation statement: I reviewed the patient's lab results. Labs: Lab Results 06/01/25 Range/Units 10:33 Urine Color Yellow Urine Appearance Clear Urine pH 7.0 (5.0-9.0) Ur Specific [place] 1.015 (1.005-1.025) Urine Protein Trace (Neg-Trace) mg/dL Urine Glucose (UA) Negative (Negative) mg/dL Urine Ketones Negative (Negative) mg/dL Urine Blood Negative (Negative) Urine Nitrite Negative (Negative) Ur Leukocyte Esterase Small (1+) H (Negative) Urine RBC 0-2 (0-2) /HPF Urine WBC 0-5 (0-5) /HPF Ur Squamous Epith Cells 0-2 (0-2) /HPF Urine Bacteria None Seen (None Seen) Hyaline Casts 0-2 (0-2) /LPF Independent Interpretation I performed an independent interpretation of an: EKG Interpretation: Rate: 66 Rhythm: NSR Bernice: normal Normal P waves. Normal JIMMY. Normal QRS complex. ST T wave : no SHAD, flat t waves aVL qTC: 410 prior studies: no change from prior The study has been interpreted contemporaneously by me. . External Record Review External record reviewed: Outpatient record Prescription Management I considered prescription management with: Pain Medication and Other Medications Administered Discontinued Medications Generic Name Dose Route Start Last Admin Trade Name Freq PRN Reason Stop Dose Admin Albuterol Sulfate 2 puff 06/01/25 09:33 06/01/25 09:54 Albuterol Sulfate 90 Mcg 8 Gm Inhaler INHALE 06/01/25 09:34 2 puff ONCE ONE Administration Discharge Plan Discharge Clinical Impression: Nausea, Vaginitis Patient Disposition: Home, Self-Care Instructions: Yeast Infection (ED), Acute Nausea and Vomiting (ED) Additional Instructions: continue your medications, return for worsening symptoms or concerns take medication for yeast today and then at end of your antibiotic course your urine showed no infection your EKG was reassuring Prescriptions: New ondansetron 4 mg tablet,disintegrating 4 mg PO Q8H PRN (Reason: nausea and vomiting) Qty: 20 0RF fluconazole 150 mg tablet 150 mg PO Q3D Qty: 2 0RF No Action (DME) walker Misc See Rx Instructions .Route Qty: 1 0RF Rx Instructions: with seat Trulicity 1.5 mg/0.5 mL pen injector 1.5 mg subcut TH@0900 Qty: 6 3RF (DME) Shower Chair Misc See Rx Instructions .Route Qty: 1 0RF Rx Instructions: As directed (DME) clamp on tub safety rail See Rx Instructions .Route .MEDSUPPLY Qty: 1 0RF Rx Instructions: As directed (DME) 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 support See Rx Instructions .Route .MEDSUPPLY Qty: 1 0RF Rx Instructions: As directed (DME) lancets [FreeStyle Lancets] 28 gauge misc See Rx Instructions .Route Qty: 100 3RF Rx Instructions: Use 1 lancet once a day trazodone 100 mg tablet 100 mg PO BEDTIME 90 Days Qty: 90 1RF metoprolol succinate 25 mg tablet extended release 24 hr 25 mg PO DAILY Qty: 90 3RF pantoprazole 40 mg tablet,delayed release (DR/EC) 40 mg PO DAILY Qty: 90 1RF (DME) pen needle, diabetic 31 gauge x 5/16 needle See Rx Instructions .ROUTE .COMPLEX Qty: 100 11RF Dose Instruction: USE 1 PEN NEEDLE 6 TIMES A DAY Rx Instructions: USE 1 PEN NEEDLE 6 TIMES A DAY famotidine 20 mg tablet 20 mg PO BEDTIME 90 Days Qty: 90 1RF aspirin 81 mg tablet,delayed release (DR/EC) 81 mg PO DAILY Qty: 90 0RF melatonin 1 mg tablet 1 mg PO BEDTIME Qty: 90 0RF (DME) FreeStyle Lite Strips Strip MISCELLANEOUS DAILY Qty: 100 1RF Rx Instructions: Use 1 test strip three times a day ondansetron 4 mg tablet,disintegrating 4 mg PO Q8H PRN (Reason: nausea and vomiting) Qty: 20 0RF wkiydteezx-bgzivjlyfriko-cpwj 50-325-40 mg tablet 1 tab PO Q6H PRN (Reason: haeadace) Qty: 20 0RF albuterol sulfate 90 mcg/actuation HFA aerosol inhaler 2 inh inhalation Q4H PRN (Reason: Shortness Of Breath Or Wheezing) (DME) blood pressure monitor Kit See Rx Instructions .Route Qty: 1 0RF Rx Instructions: As directed clopidogrel 75 mg tablet 75 mg PO DAILY Qty: 100 4RF Rx Instructions: Take 4 tablets on first day then 1 tablet daily. Trelegy Ellipta 200-62.5-25 mcg blister with device 1 ea inhalation DAILY simethicone 125 mg capsule 125 mg PO DAILY PRN (Reason: gas pain) Qty: 30 0RF trazodone 50 mg tablet 50 mg PO BEDTIME PRN (Reason: sleep) 90 Days Qty: 90 0RF (DME) blood pressure test kit-medium Kit See Rx Instructions .Route Qty: 1 0RF Rx Instructions: As directed hydroxychloroquine [Plaquenil] 200 mg tablet 200 mg PO DAILY Qty: 90 1RF metoclopramide HCl [Reglan] 5 mg tablet 5 mg PO TID PRN (Reason: nausea and vomiting) 30 Days Qty: 90 1RF Rx Instructions: Take 30 min before lunch and dinner and at bedtime tramadol 50 mg tablet 50 mg PO BID 30 Days Qty: 60 5RF methotrexate sodium 2.5 mg tablet 17.5 mg PO QWEEK 90 Days Qty: 91 1RF folic acid 1 mg tablet 1 mg PO DAILY Qty: 90 1RF pregabalin 200 mg capsule 200 mg PO BID Qty: 60 4RF Linzess 145 mcg capsule 145 mcg PO QAM 30 Days Qty: 30 3RF amoxicillin 500 mg tablet 1,000 mg PO Q8H 14 Days Qty: 84 0RF pantoprazole 40 mg tablet,delayed release (DR/EC) 40 mg PO BID 14 Days Qty: 28 0RF levofloxacin 500 mg tablet 500 mg PO DAILY 14 Days Qty: 14 0RF lithium carbonate 150 mg capsule 150 mg PO BID Qty: 60 2RF Print Language: Frisian
--- NOTE | 2025-06-01 09:32 | ECG_ITS ---
Test Reason : CHECK QTC Blood Pressure : */* mmHG Vent. Rate : 66 BPM Atrial Rate : 66 BPM P-R Int : 150 ms QRS Dur : 86 ms QT Int : 392 ms P-R-T Axes : 60 74 71 degrees QTcB Int : 410 ms Normal sinus rhythm Normal ECG When compared with ECG of 18-Dec-2024 15:22, Vent. rate has decreased by 48 bpm T wave inversion no longer evident in Inferior leads Referred By: Angelic Mark Electronically Signed By: MICHELL MONTES
[2025-06-01 09:54] VITALS: PULSE 70; RESP 16; O2SAT 98
[2025-06-01] MEDS: Albuterol Sulfate 90 MCG 8 GM INHALER 2 PUFF INHALE (09:54)
[2025-06-01 10:45] LABS: Appearance Urine Clear; Glucose Urine UA Negative (Negative); PH 7.0 (5.0-9.0); Specific Gravity - Urine 1.015 (1.005-1.025); UMIC TRIGGER UACC YES
[2025-06-01 10:58] LABS: UACC Culture Trigger YES
[2025-06-01 11:57] VITALS: BP 130/68; PULSE 70; RESP 16; TEMP 37.1; O2SAT 95
== END 2025-06-01 11:58 | disposition home or self-care (01) ==
PROVIDERS: Emergency Provider Emergency Medicine; PCP Internal Medicine
DX: N76.0 Acute vaginitis (principal); R11.0 Nausea; R30.0 Dysuria; L29.2 Pruritus vulvae; R06.2 Wheezing
CPT/HCPCS: 81001; 87086; 93005; 94640; 94664; 99284

== ENCOUNTER → 2025-06-01 09:32 | Outpatient (BNV) | payer OTHER, SELFPAY ==
[2025-04-13 11:19] VITALS: BP 96/60; BP 96/66; BMI 22.5
== END ==
PROVIDERS: Emergency Provider Emergency Medicine; PCP Internal Medicine; Visit Provider Internal Medicine
DX: Z13.6 Encounter for screening for cardiovascular disorders (principal)
CPT/HCPCS: 93010

== ENCOUNTER 2025-06-01 13:05 | Outpatient (AMB) | payer OTHER, SELFPAY ==
[2025-04-13 11:19] VITALS: BP 96/60; BP 96/66; BMI 22.5
--- NOTE | 2025-06-01 13:18 | A.OFFVIS_ITS ---
Intake Visit Reasons: OV - Right triquetral Fracture DOI 02/21/25 Intake Note: Sosa is a 64 year old right hand dominant female who presents today for a follow up/ROM Check of her right wrist pain. Hx of Right distal radius/triquetral Fracture DOI 02/21/25. Patient reports that she is doing well, but still has some pain with twisting motions and some healier lifting. Denies numbness and tingling. Allergies methylprednisolone Allergy (Severe, Verified 06/01/25 09:31) Rash from Solu-Medrol shellfish derived Allergy (Intermediate, Verified 06/01/25 09:31) Hives etanercept (From Enbrel) Adverse Reaction (Severe, Verified 06/01/25 09:31) Facial Swelling metformin Adverse Reaction (Severe, Verified 06/01/25 09:31) Diarrhea metronidazole (From FLAGYL) Adverse Reaction (Severe, Verified 06/01/25 09:31) Diarrhea prednisone Adverse Reaction (Intermediate, Verified 06/01/25 09:31) hallucinations, more than 20 mg doses HPI HPI OV - Right triquetral Fracture DOI 02/21/25: Details: Sosa is a 64 year old right hand dominant female who presents today for a follow up/ROM Check of her right wrist pain. Hx of Right distal radius/triquetral Fracture DOI 02/21/25. Patient reports that she is doing well, but still has some pain with twisting motions and some healier lifting. Denies numbness and tingling. [facility] Medical History CAD (coronary artery disease) NSTEMI (non-ST elevated myocardial infarction) GERD (gastroesophageal reflux disease) Diverticulitis large intestine [facility] (current) use 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 Acute respiratory distress Tendonitis of ankle or foot Cough Stable angina Anxiety HLD (hyperlipidemia) HTN (hypertension) COPD exacerbation Hyperkalemia Atherosclerotic cardiovascular disease Hospital discharge follow-up Colitis CVA (cerebral vascular accident) (~2018) Breast pain, right Rash Bloody diarrhea PAD (peripheral artery disease) Hyperlipidemia LDL goal <100 COPD (chronic obstructive pulmonary disease) Infiltrating ductal carcinoma of left breast, stage 2 Insomnia Dyslipidemia Bipolar 1 disorder, depressed Cough Restrictive airway disease Hypothyroid IDDM (insulin dependent diabetes mellitus) Vitamin D deficiency Osteoporosis Breast cancer Hyperparathyroidism Thyroid nodule T2DM (type 2 diabetes mellitus) Depression Fibromyalgia Seropositive rheumatoid arthritis Reactive airways dysfunction syndrome Allergic rhinitis Irritable bowel Anxiety Bronchial asthma Diabetes type 2, uncontrolled Surgical History S/P laparoscopic colectomy (04/15/24) Hx of sigmoidoscopy History of bronchoscopy Hx of endoscopy H/O cardiac catheterization History of lumpectomy of left breast History of pubovaginal sling History of esophagogastroduodenoscopy (EGD) History of tubal ligation History of colonoscopy History of bunionectomy of both great toes H/O: hysterectomy Family History Mother Diabetes HTN (hypertension) Uterus cancer Malignant tumor of head Breast cancer Father Diabetes HTN (hypertension) CVD (cardiovascular disease) Heart problem Maternal Aunt Breast cancer Brother Myocardial infarction S/P CABG x 4 Family/Other FH: mental illness Family/Other Lung cancer Other Mental health disorder Social History Household Members: Family Household Members Other:: sister Housing: House Are you a primary child care giver to a significant other at home: No Do you presently have visiting nurse or other home services: No Unable to assess alcohol history related to: Unknown Alcohol intake: never Comment: Low fall Patient Tobacco Use Status: Current everyday Tobacco user Tobacco use type: Cigarette Cigarette Packs Per Day: 0.5 Years Smoked: 48 e-Cigarette/Vaping Use: Never Used Second Hand Smoke Exposure: No Substance Use Type: Marijuana Advance Directives Date on File: 12/22/21 service: No Current occupational status: disabled Current occupation: rt handed Cognitive needs: No Hearing needs: No Vision needs: Yes Review of Systems Const All systems reviewed & are unremarkable except as noted in HPI and below Physical Exam Const General: cooperative, healthy appearing and no acute distress Orientation/consciousness: patient oriented x3 HEENT Head: Yes normocephalic and Yes atraumatic Eyes EOM: EOMs intact bilaterally Resp Effort & Inspection: normal respiratory effort and able to speak in complete sentences Cardio Jugular venous distension: no JVD Skin General skin exam: turgor normal Rashes: no rashes Neuro General: patient oriented x3 Extrem Other: Evaluation of Right Upper Extremity: The patient is alert, oriented, and in no acute distress Neuro: Median, Ulnar, Radial nerves motor and sensory intact and sensation is normal to the tips of all digits Vascular: Cap refill brisk She can make a fist and extend all of her digits. No locking or catching. Her distal radius DRUJ and distal ulna are now nontender to palpation. She is also not particularly tender over the triquetrum. Mild tenderness over the radioscaphoid joint. Initially she had some discomfort with wrist flexion and extension after being in a splint. After she started working on range of motion in clinic, she did show some improvement. 90 degrees of pronation, and about 85 degrees of supination without pain. Skin: No lacerations or abrasions. General: No Ecchymosis. No Erythema or evidence of infection. Psych Appearance: grossly normal Affect: normal affect Attitude: cooperative Assessment & Plan Assessment & Plan (1) Fracture of triquetral bone of right wrist: Code(s): S62.111A - Displaced fracture of triquetrum [cuneiform] bone, right wrist, initial encounter for closed fracture Category: Medical (2) Tenderness of anatomical snuffbox: Code(s): M79.643 - Pain in unspecified hand Category: Medical (3) Smoker: Comment: Has past history of smoking 50 years. Currently smoking about 3-5 cigarettes a day. Counseled once again that she must quit completely. Advised that her frequent cough is definitely related to her ongoing smoking. Discussed with patient that smoking can make RA worse Code(s): F17.200 - Nicotine dependence, unspecified, uncomplicated Category: Social Hx (4) Diabetes mellitus: Code(s): E11.9 - Type 2 diabetes mellitus without complications Category: Medical Qualifiers: Diabetes mellitus type: type 2 Diabetes mellitus alf insulin use: without alf use Diabetes mellitus complication status: without complication Qualified Code(s): E11.9 - Type 2 diabetes mellitus without complications (5) Seropositive rheumatoid arthritis: Comment: +++RF+++CCP dx around 1999 [place]: 04/2021- 06/2022- stopped due to severe COPD requiring long standing azithromycin Plaquenil: approx. 02/2021-May 2021 self stopped Enbrel: approx. 02/2021 ordered after cleared for hep A, stopped due to allergy Sulfasalazine: approx. 02/2019- 02/2021 - restarted 09/27/2022 -04/2023 stopped due to heaedache and nausea Methorexate: approx. 11/2016-12/2018 started in [facility] [place]. Diagnosed with breast CA so methotrexate discontinued. Changed to sulfsalazine 500mg 2 tabs BID to prevent lung fibrosis as patient was receiving radiation therapy for her breast CA. Completed Radiation therapy February 2019. OnTamoxifen but had side effects so was started on Letrozole in May 2019. MTX restarted 02/2024 Xeljanz: approx. 03/2018-04/2018 Cimzia: aprrox.05/2017- did not take Humira: dates unknown Leflunomide: many years ago, then approx. 08/2020-02/2021 Code(s): M05.9 - Rheumatoid arthritis with rheumatoid factor, unspecified Category: Medical (6) Fibromyalgia: Code(s): M79.7 - Fibromyalgia Category: Medical Plan Assessment & Plan: 1. Right Triquetral fracture After a fall, DOI: 02/21/25 2. Right distal radius fracture, nondisplaced Presumably from the same fall on 02/21/2025 New finding on MRI, healing well These have been managed conservatively I educated her about this condition and reviewed her MRI results with her There is no evidence of a scaphoid fracture She will discontinue her splint at this time She will work on ROM exercises at home No OT necessary Slowly increase to normal activity and normal lifting over the next 3-4 weeks Follow-up as needed Coding Level of Care Code Global (68970) Diagnoses Fracture of triquetral bone of right wrist S62.111A Tenderness of anatomical snuffbox M79.643 Smoker F17.200 Type 2 diabetes mellitus without complication, without long-term current use of insulin E11.9 Diabetes mellitus type: type 2 Diabetes mellitus alf insulin use: without truck 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
== END 2025-06-01 13:34 | disposition home or self-care (01) ==
LOC: HO.HOS 13:06
PROVIDERS: PCP Internal Medicine
DX: S62.111A Displaced fracture of triquetrum [cuneiform] bone, right wrist, initial encounter for closed fracture (principal); M79.643 Pain in unspecified hand; F17.200 Nicotine dependence, unspecified, uncomplicated; E11.9 Type 2 diabetes mellitus without complications; M05.9 Rheumatoid arthritis with rheumatoid factor, unspecified; M79.7 Fibromyalgia
CPT/HCPCS: 99213

== ENCOUNTER 2025-06-03 16:03 | Emergency (ER) | payer OTHER, SELFPAY ==
[2025-04-13 11:19] VITALS: BP 96/60; BP 96/66; BMI 22.5
--- NOTE | ~2025-06-03 | CT_ITS ---
CLINICAL HISTORY: Upper abdominal pain hx of diverticulitis Crohns CT abdomen and pelvis with contrast Comparison: US/AK/SR - US ABDOMEN COMPLETE WITH LIVER ELASTOGRAPHY - 12/01/24 09:[address]/REG/SR - CT ABDOMEN PELVIS WO IV CON - 04/20/24 23:24 EDT Findings: Minimal subsegmental atelectasis versus scarring identified at the right middle lobe. The visualized portion of the left lung base appears clear. The gallbladder and solid organs are within normal limits. No hydronephrosis or hydroureter. No bowel obstruction, pneumoperitoneum, or pneumatosis. Mildly limited evaluation of the stomach related to gastric underdistention. There are postsurgical changes of the bowel near the rectosigmoid junction. A 3.9 cm low-attenuation collection is identified in the presacral region adjacent to the rectum on axial image number 60 of series 4. The uterus is surgically absent. No bladder wall thickening. Normal appendix. No acute fracture visualized. IMPRESSION: 1. No acute inflammatory process identified within the abdomen or pelvis. 2. Postsurgical changes of the bowel near the rectosigmoid junction. A focal 3.8 cm low-attenuation areas identified adjacent to the rectum in the presacral region. This may represent a focal outpouching of the bowel related to postoperative change or a chronic postoperative fluid collection. No significant adjacent edema/inflammatory change appreciated. This document has been electronically signed by: Rudolph Caro MD on 06/03/2025 21:08:49
[2025-06-03 16:10] VITALS: BP 153/84; PULSE 78; RESP 16; TEMP 36.8; O2SAT 98; BMI 18.9
--- NOTE | 2025-06-03 16:11 | ED_ITS ---
HPI - General Adult General Chief complaint: Abdominal Pain Stated complaint: stomach cramping and pain Time Seen by Provider: 06/03/25 18:37 Source: patient Mode of arrival: ambulatory Limitations: no limitations History of Present Illness ED Provider: HPI narrative: Patient is 64 years old with history of hyperlipidemia, COPD, breast cancer, type 2 diabetes, renal disease, Crohn's disease, rheumatoid arthritis H pylori positive 5 days ago Levaquin amoxicillin for H pylori comes here as feeling of increased nausea and upper abdominal pain which is worse than before patient does have history of diverticulitis in the past it is post partial colectomy no fever no chills urinary symptom no vomiting/diarrhea Related Data Home Medications ?Medication ?Instructions ?Recorded ?Confirmed albuterol sulfate 90 mcg/actuation 2 inh inhalation Q4 H PRN Shortness 08/23/23 05/27/25 aerosol inhaler Of Breath Or Wheezing fluticasone fur. 200 mcg-umeclid 1 ea inhalation DAILY 02/06/24 05/27/25 62.5 mcg-vilant 25 mcg inhalat.powder (Trelegy Ellipta) Previous Rx's ?Medication ?Instructions ?Recorded walker #1 ea 02/08/23 dulaglutide 1.5 mg/0.5 mL 1.5 mg (0.5 mL) subcut TH@09 00 #6 12/30/23 subcutaneous pen injector mL (Trulicity) Shower Chair #1 ea 01/15/24 clamp on tub safety rail #1 ea 01/15/24 ez distribution center administrator bed assist support #1 ea 01/15/24 ondansetron 4 mg disintegrating 4 mg PO Q8H PRN nausea and 02/19/24 tablet vomiting #20 tabs simethicone 125 mg capsule 125 mg PO DAILY PRN gas monster n #30 04/28/24 caps crdjntnbxq-xsffvjhvxvkkq-wtikpkmn 1 tab PO Q6H PRN hae adace #20 tabs 10/18/24 50 mg-325 mg-40 mg tablet blood pressure monitor #1 ea 11/04/24 blood pressure test kit-medium #1 ea 11/04/24 trazodone 50 mg tablet 50 mg PO BEDTIME PRN sleep 9 0 days 11/04/24 #90 tabs metoclopramide HCl 5 mg tablet 5 mg PO TID PRN nausea and 11/19/24 (Reglan) vomiting 30 days #90 tabs lancets 28 gauge (FreeStyle #100 ea 12/09/24 Lancets) hydroxychloroquine 200 mg tablet 200 mg PO DAILY #90 t abs 12/23/24 (Plaquenil) clopidogrel 75 mg tablet 75 mg PO DAILY #100 tabs trazodone 100 mg tablet 100 mg PO BEDTIME 90 days #9 0 tabs 02/10/25 metoprolol succinate 25 mg 25 mg PO DAILY #90 tabs tablet,extended release 24 hr pantoprazole 40 mg tablet,delayed 40 mg PO DAILY #90 t abs 02/12/25 release pen needle, diabetic 31 gauge x #100 ea 03/22/2504/02 famotidine 20 mg tablet 20 mg PO BEDTIME 90 days #90 tabs 04/06/25 aspirin 81 mg tablet,delayed 81 mg PO DAILY #90 tabs 0 04/15/25 release folic acid 1 mg tablet 1 mg PO DAILY #90 tabs 04/27 methotrexate sodium 2.5 mg tablet 17.5 mg (7 x 2.5 mg) PO QWEEK 90 04/27/25 days #91 tabs pregabalin 200 mg capsule 200 mg PO BID #60 caps 04/27 tramadol 50 mg tablet 50 mg PO BID pain 30 days #6 0 tabs 04/27/25 melatonin 1 mg tablet 1 mg PO BEDTIME for insomnia #90 05/03/25 tabs blood sugar diagnostic (FreeStyle #100 ea 05/05/25 Lite Strips) linaclotide 145 mcg capsule 145 mcg PO QAM 30 days #30 caps 05/13/25 (Linzess) amoxicillin 500 mg tablet 1,000 mg (2 x 500 mg) PO Q8H 14 05/27/25 days #84 tabs levofloxacin 500 mg tablet 500 mg PO DAILY 14 days #14 tabs 05/27/25 lithium carbonate 150 mg capsule 150 mg PO BID #60 cap s 05/27/25 pantoprazole 40 mg tablet,delayed 40 mg PO BID 14 days #28 tabs 05/27/25 release fluconazole 150 mg tablet 150 mg PO Q3D 2 doses #2 tab s 06/01/25 ondansetron 4 mg disintegrating 4 mg PO Q8H PRN nausea and 06/01/25 tablet vomiting #20 tabs sucralfate 1 gram tablet 1 g PO TID #90 tabs 06/03/25 Allergies Allergy/AdvReac Type Severity Reaction Status Date / Time methylprednisolone Allergy Severe Rash from Verified 06/03/25 16:13 Solu-Medrol shellfish derived Allergy Intermediate Hives Verified 06/03/25 16:13 etanercept (From Enbrel) AdvReac Severe Facial Verified 06/03/25 16:13 Swelling metformin AdvReac Severe Diarrhea Verified 06/03/25 16:13 metronidazole (From FLAGYL) AdvReac Severe Diarrhea Verified 06/03/25 16:13 prednisone AdvReac Intermediate hallucinations, Verified 06/03/25 16:13 more than 20 mg doses Review of Systems 2 Review of Systems: Yes all other systems are reviewed and are negative [facility] Past Medical History Medical History CAD (coronary artery disease) NSTEMI (non-ST elevated myocardial infarction) GERD (gastroesophageal reflux disease) 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 Acute respiratory distress Tendonitis of ankle or foot Cough Stable angina Anxiety HLD (hyperlipidemia) HTN (hypertension) COPD exacerbation Hyperkalemia Atherosclerotic cardiovascular disease Hospital discharge follow-up Colitis CVA (cerebral vascular accident) (~2018) Breast pain, right Rash Bloody diarrhea PAD (peripheral artery disease) Hyperlipidemia LDL goal <100 COPD (chronic obstructive pulmonary disease) Infiltrating ductal carcinoma of left breast, stage 2 Insomnia Dyslipidemia Bipolar 1 disorder, depressed Cough Restrictive airway disease Hypothyroid IDDM (insulin dependent diabetes mellitus) Vitamin D deficiency Osteoporosis Breast cancer Hyperparathyroidism Thyroid nodule T2DM (type 2 diabetes mellitus) Depression Fibromyalgia Seropositive rheumatoid arthritis Reactive airways dysfunction syndrome Allergic rhinitis Irritable bowel Anxiety Bronchial asthma Diabetes type 2, uncontrolled Surgical History S/P laparoscopic colectomy (04/15/24) Hx of sigmoidoscopy History of bronchoscopy Hx of endoscopy H/O cardiac catheterization History of lumpectomy of left breast History of pubovaginal sling History of esophagogastroduodenoscopy (EGD) History of tubal ligation History of colonoscopy History of bunionectomy of both great toes H/O: hysterectomy Family History Family History Mother Diabetes HTN (hypertension) Uterus cancer Malignant tumor of head Breast cancer Father Diabetes HTN (hypertension) CVD (cardiovascular disease) Heart problem Maternal Aunt Breast cancer Brother Myocardial infarction S/P CABG x 4 Family/Other FH: mental illness Family/Other Lung cancer Other Mental health disorder Social History Social History Household Members: Family Household Members Other:: sister Housing: House Are you a primary care tech to a significant other at home: No Do you presently have visiting nurse or other home services: No Unable to assess alcohol history related to: Unknown Alcohol intake: never Comment: Low fall Patient Tobacco Use Status: Current everyday Tobacco user Tobacco use type: Cigarette Cigarette Packs Per Day: 0.5 Years Smoked: 48 Smoked in Last 30 Days: Yes e-Cigarette/Vaping Use: Never Used Second Hand Smoke Exposure: No Use of substances other than those prescribed or required for medical reasons: Yes Substance Use Type: Marijuana Advance Directives: Yes Advance Directives on File: Yes Advance Directives Date on File: 12/22/21 Do you have a plan to hurt others: No Plan service: No Current occupational status: disabled Current occupation: rt handed Cognitive needs: No Hearing needs: No Vision needs: Yes Physical Exam ED Exam Exam: Appearance: Alert. Oriented X3. No acute distress. Eyes: PERRLA, No Nystagmus ENT: Pharynx normal. Oral Mucosa moist Neck: Normal inspection. Neck supple. CVS: Normal heart rate and rhythm. Pulses normal. Respiratory: No respiratory distress. Equal air entry bilateral, no wheezing/rales/rhonchi Abdomen: Soft and epigastric area tenderness no rebound tenderness or guarding. Bowel sounds are present, no mass palpable, no CVA tenderness Skin: Skin warm and dry. Normal skin color. Normal skin turgor. Extremities: No lower extremity edema. No calf tenderness Neuro: Oriented X 3. No motor deficit. No sensory deficit.No cerebellar signs , cranial nerves II-XII intact Vital Signs: Vital Signs - 24 hr 06/03/25 16:10 06/03/25 18:34 06/03/25 19:22 Temperature 98.2 F 98.2 F Pulse Rate 78 69 70 Respiratory Rate 16 18 18 Blood Pressure 153/84 H 113/63 132/63 Pulse Oximetry 98 97 97 Oxygen Delivery Method Room Air Room Air Room Air 06/03/25 20:02 Temperature 98.5 F Pulse Rate 68 Respiratory Rate Blood Pressure 141/65 H Pulse Oximetry 97 Oxygen Delivery Method Room Air BMI result Body Mass Index 18.9 Course Course Course Narrative: This is a rapid medical exam performed by Domenic Hunt NP: Additional HPI, ROS, PE not included below will be deferred to primary provider. Patient is a 64-year-old female pmhx CAD, hypothyroidism, STEMI, GERD presenting with complaint of abd cramping, nausea, vomiting yesterday and lightheadedness. Seen here on 06/01, d/c'd home on zofran and fluconazole. Currently on abx prescribed by GI. Plan: labs, UA Medications Administered Discontinued Medications Generic Name Dose Route Start Last Admin Trade Name Freq PRN Reason Stop Dose Admin Al Hydroxide/Mg Hydroxide 30 ml 06/03/25 18:59 06/03/25 19:24 Magnesium Hydrox/Alum Hydrox 30 Ml Oral.Susp PO 06/03/25 19:00 30 ml ONCE ONE Administration Sodium Chloride 1,000 mls @ 999 mls/hr 06/03/25 18:58 06/03/25 21:14 Ns IV 06/03/25 19:58 Infused .Q1H1M ONE Infusion Iohexol 85 ml 06/03/25 20:16 06/03/25 20:18 Iohexol 350 Mg/Ml 100 Ml Infus..Btl IV 06/03/25 20:17 85 ml ONCE ONE Administration Lidocaine HCl 15 ml 06/03/25 18:59 06/03/25 19:23 Lidocaine Hcl Viscous 2 % 15 Ml Solution MUCOUS MEM 06/03/25 19:00 15 ml ONCE ONE Administration Medical Decision Making Medical Decision Making [facility] Narrative: Patient with upper abdominal pain CT scan negative for acute pathology likely from gastritis advised to continue H pylori protocol will add sucralfate patient does have cardiothoracic anesthesia technician to follow Differential Diagnosis Differential Diagnoses: The differential diagnosis associated with the presentation includes Gastritis/pancreatitis/cholecystitis/UTI Lab Data [facility] Lab Attestation statement: I reviewed the patient's lab results. 06/03/25 16:27 06/03/25 16:27 Labs: Lab Results 06/03/25 Range/Units 16:27 WBC 8.7 (4.8-10.8) X10*3/uL RBC 4.29 (4.20-5.50) X10*6/uL Hgb 12.2 (12.0-16.0) g/dl Hct 36.5 L (37.0-47.0) % MCV 85.1 (80.0-98.0) fL MCH 28.4 (27.0-33.0) pg MCHC 33.4 (31.0-35.0) g/dl RDW 15.7 (11.0-16.0) % Plt Count 290 (160-400) X10*3/uL MPV 10.1 (9.4-12.3) fL Immature Gran % (Auto) 0.3 (0.0-0.4) % Neut % (Auto) 61.1 (45-73) % Lymph % (Auto) 32.1 (20-40) % [place] % (Auto) 5.4 (2-11) % Eos % (Auto) 0.8 (0-4) % Baso % (Auto) 0.3 (0-2) % Lymph # (Auto) 2.8 (1.2-4.9) X10*3/uL [place] # (Auto) 0.5 (0.1-1.2) X10*3/uL Eos # (Auto) 0.1 (0.0-0.4) X10*3/uL Baso # (Auto) 0.0 (0.0-0.2) X10*3/uL Abs Immat Gran (auto) 0.03 (0.00-0.03) X10*3/uL Absolute Neuts (auto) 5.3 (2.0-8.3) x10*3/uL Absolute Nucleated RBC 0.000 (0.0-0.012) X10*3/uL Nucleated RBC % (auto) 0.0 (0.0-0.2) /100WBC Sodium 143 (135-145) mmol/L Potassium 4.2 (3.3-5.1) mmol/L Chloride 112 H (96-108) mmol/L Carbon Dioxide 26 (22-29) mmol/L Anion Gap 9 L (12-20) BUN 9 (9-16) mg/dL Creatinine 0.75 (0.5-1.4) mg/dL Estim Creat Clear Calc 53.9 Estimated GFR > 60 Random Glucose 110 (60-115) mg/dL Calcium 8.8 (8.4-10.2) mg/dL Total Bilirubin 0.3 (0.0-1.0) mg/dL AST 18 (5-31) U/L ALT 9 (0-31) U/L Alkaline Phosphatase 64 (39-117) U/L Troponin I High Sens 4.8 D (<3.5-17.0) ng/L Total Protein 6.6 (6.5-8.0) g/dL Albumin 4.0 (3.5-5.0) g/dL Lipase 39 (8-78) U/L Urine Color Yellow Urine Appearance Clear Urine pH 6.5 (5.0-9.0) Ur Specific [place] 1.015 (1.005-1.025) Urine Protein Negative (Neg-Trace) mg/dL Urine Glucose (UA) Negative (Negative) mg/dL Urine Ketones Negative (Negative) mg/dL Urine Blood Moderate (2+) H (Negative) Urine Nitrite Negative (Negative) Ur Leukocyte Esterase Moderate (2+) H (Negative) Urine RBC 11-20 H (0-2) /HPF Urine WBC 6-10 H (0-5) /HPF Ur Squamous Epith Cells 0-2 (0-2) /HPF Urine Bacteria None Seen (None Seen) Hyaline Casts 0-2 (0-2) /LPF Independent Interpretation I performed an independent interpretation of an: CT Scan Radiology Impression Discussion of test interpretation with radiology: I have reviewed the radiologist's reading. Discharge Plan Discharge Clinical Impression: Chronic gastritis Patient Disposition: Home, Self-Care Instructions: Gastritis (ED) Additional Instructions: Continue take your acid medication as prescribed by cardiothoracic anesthesia technician Start taking sucralfate 1 tablet half an hour before the meals Follow with cardiothoracic anesthesia technician Your CAT scan was negative for any acute pathology Prescriptions: New sucralfate 1 gram tablet 1 g PO TID Qty: 90 0RF No Action (DME) walker Misc See Rx Instructions .Route Qty: 1 0RF Rx Instructions: with seat Trulicity 1.5 mg/0.5 mL pen injector 1.5 mg subcut TH@0900 Qty: 6 3RF (DME) Shower Chair Misc See Rx Instructions .Route Qty: 1 0RF Rx Instructions: As directed (DME) clamp on tub safety rail See Rx Instructions .Route .MEDSUPPLY Qty: 1 0RF Rx Instructions: As directed (DME) ez distribution center administrator bed assist support See Rx Instructions .Route .MEDSUPPLY Qty: 1 0RF Rx Instructions: As directed (DME) lancets [FreeStyle Lancets] 28 gauge misc See Rx Instructions .Route Qty: 100 3RF Rx Instructions: Use 1 lancet once a day trazodone 100 mg tablet 100 mg PO BEDTIME 90 Days Qty: 90 1RF metoprolol succinate 25 mg tablet extended release 24 hr 25 mg PO DAILY Qty: 90 3RF pantoprazole 40 mg tablet,delayed release (DR/EC) 40 mg PO DAILY Qty: 90 1RF (DME) pen needle, diabetic 31 gauge x 5/16 needle See Rx Instructions .ROUTE .COMPLEX Qty: 100 11RF Dose Instruction: USE 1 PEN NEEDLE 6 TIMES A DAY Rx Instructions: USE 1 PEN NEEDLE 6 TIMES A DAY famotidine 20 mg tablet 20 mg PO BEDTIME 90 Days Qty: 90 1RF aspirin 81 mg tablet,delayed release (DR/EC) 81 mg PO DAILY Qty: 90 0RF melatonin 1 mg tablet 1 mg PO BEDTIME Qty: 90 0RF (DME) FreeStyle Lite Strips Strip MISCELLANEOUS DAILY Qty: 100 1RF Rx Instructions: Use 1 test strip three times a day ondansetron 4 mg tablet,disintegrating 4 mg PO Q8H PRN (Reason: nausea and vomiting) Qty: 20 0RF zapfrdcmgv-guwszrefvpciz-dwlh 50-325-40 mg tablet 1 tab PO Q6H PRN (Reason: haeadace) Qty: 20 0RF ondansetron 4 mg tablet,disintegrating 4 mg PO Q8H PRN (Reason: nausea and vomiting) Qty: 20 0RF fluconazole 150 mg tablet 150 mg PO Q3D Qty: 2 0RF albuterol sulfate 90 mcg/actuation HFA aerosol inhaler 2 inh inhalation Q4H PRN (Reason: Shortness Of Breath Or Wheezing) (DME) blood pressure monitor Kit See Rx Instructions .Route Qty: 1 0RF Rx Instructions: As directed clopidogrel 75 mg tablet 75 mg PO DAILY Qty: 100 4RF Rx Instructions: Take 4 tablets on first day then 1 tablet daily. Trelegy Ellipta 200-62.5-25 mcg blister with device 1 ea inhalation DAILY simethicone 125 mg capsule 125 mg PO DAILY PRN (Reason: gas pain) Qty: 30 0RF trazodone 50 mg tablet 50 mg PO BEDTIME PRN (Reason: sleep) 90 Days Qty: 90 0RF (DME) blood pressure test kit-medium Kit See Rx Instructions .Route Qty: 1 0RF Rx Instructions: As directed hydroxychloroquine [Plaquenil] 200 mg tablet 200 mg PO DAILY Qty: 90 1RF metoclopramide HCl [Reglan] 5 mg tablet 5 mg PO TID PRN (Reason: nausea and vomiting) 30 Days Qty: 90 1RF Rx Instructions: Take 30 min before lunch and dinner and at bedtime tramadol 50 mg tablet 50 mg PO BID 30 Days Qty: 60 5RF methotrexate sodium 2.5 mg tablet 17.5 mg PO QWEEK 90 Days Qty: 91 1RF folic acid 1 mg tablet 1 mg PO DAILY Qty: 90 1RF pregabalin 200 mg capsule 200 mg PO BID Qty: 60 4RF Linzess 145 mcg capsule 145 mcg PO QAM 30 Days Qty: 30 3RF amoxicillin 500 mg tablet 1,000 mg PO Q8H 14 Days Qty: 84 0RF pantoprazole 40 mg tablet,delayed release (DR/EC) 40 mg PO BID 14 Days Qty: 28 0RF levofloxacin 500 mg tablet 500 mg PO DAILY 14 Days Qty: 14 0RF lithium carbonate 150 mg capsule 150 mg PO BID Qty: 60 2RF Print Language: Italian
--- NOTE | 2025-06-03 16:17 | ECG_ITS ---
Test Reason : ABDOMINAL PAIN Blood Pressure : */* mmHG Vent. Rate : 75 BPM Atrial Rate : 75 BPM P-R Int : 136 ms QRS Dur : 84 ms QT Int : 372 ms P-R-T Axes : 67 70 57 degrees QTcB Int : 415 ms Normal sinus rhythm Normal ECG When compared with ECG of 01-Jun-2025 10:11, No significant change was found Referred By: Catina Hunt Electronically Signed By: MICHELL MONTES
[2025-06-03 16:33] LABS: MANUAL DIFF FLAG NO
[2025-06-03 16:34] LABS: Hematocrit 36.5 % (37.0-47.0); Hemoglobin 12.2 g/dl (12.0-16.0); Imm Gran Abs Auto 0.03 X10*3/uL (0.00-0.03); Imm Gran Pct Auto 0.3 % (0.0-0.4); Lymphocytes Absolute Auto 2.8 X10*3/uL (1.2-4.9); Mean Corpuscular HGB Conc 33.4 g/dl (31.0-35.0); Mean Corpuscular Hemoglobin 28.4 pg (27.0-33.0); Mean Corpuscular Volume 85.1 fL (80.0-98.0); NRBC Abs Auto 0.000 X10*3/uL (0.0-0.012); NRBC Pct Auto 0.0 /100WBC (0.0-0.2); Platelet Count 290 X10*3/uL (160-400); Red Blood Count 4.29 X10*6/uL (4.20-5.50); White Blood Count 8.7 X10*3/uL (4.8-10.8)
[2025-06-03 16:35] LABS: Appearance Urine Clear; Glucose Urine UA Negative (Negative); PH 6.5 (5.0-9.0); Specific Gravity - Urine 1.015 (1.005-1.025); UMIC TRIGGER UACC YES
[2025-06-03 16:38] LABS: UACC Culture Trigger YES
[2025-06-03 16:48] LABS: Alanine Aminotransferase 9 U/L (0-31); Albumin Level 4.0 g/dL (3.5-5.0); Alkaline Phosphatase 64 U/L (39-117); Anion Gap 9 (12-20); Aspartate Amino Transferase 18 U/L (5-31); Blood Urea Nitrogen 9 mg/dL (9-16); Calcium 8.8 mg/dL (8.4-10.2); Carbon Dioxide 26 mmol/L (22-29); Chloride 112 mmol/L (96-108); Creatinine Clr Calc Pharmacy 53.9; Estimated Glomerular Filt Rate > 60; Lipase 39 U/L (8-78); Potassium 4.2 mmol/L (3.3-5.1); Sodium 143 mmol/L (135-145); Total Protein 6.6 g/dL (6.5-8.0)
[2025-06-03 16:55] LABS: Troponin-I High Sensitivity 4.8 ng/L (<3.5-17.0)
[2025-06-03 18:34] VITALS: BP 113/63; PULSE 69; RESP 18; TEMP 36.8; O2SAT 97
--- OUTSIDE RECORDS SUMMARY | 2025-06-03 18:48 | XMS_ITS | Clinical Summary ---
Author Organization [facility] Address [address] [place] [address] Phone Care Team Providers Care Log Grader Name Role Phone Adela Gipson MD Primary Care Provider [phone] Allergies Active Allergy Reactions Criticality Noted Date [...] Most Recently Relevant to Health Maintenance [place] [address] Care Teams Log Grader Relationship Specialty Start Date End Date Adela Gipson MD [address] [place] [address] PCP - General Internal Medicine 05/28/22
--- OUTSIDE RECORDS SUMMARY | 2025-06-03 18:48 | XMS_ITS | Data Portability ---
Author Organization [facility] Address [address] [place] [id number] Care Team Providers Care Chick Sexer Name Role Phone HIM CCA Primary Care Provider Assessment Encounter Date Assessment Date Assessment LastModified by Organization Details LastModified Time 03/27/2024 03/27/2024 I provided real -time medical direction via phone for this encounter, and was available for additional phone based assistance as needed. I have reviewed and agree with the Assessment and Plan as documented by the Buffing Machine Operator [employer]ut[employer]. We discussed the diagnostic uncertainty of home [...] evaluation and management. Report called to [facility] ER [email or web address] Not available 03/27/2024 13:41:34 Plan of Treatment [...] available 03/27/2024 6 RxNorm Radha Fernández MD [address] [place] [address],[address], [place], [address] [facility] [employer] 13:34:28 Medications Name Sig Start Date Stop [...] 4 114 /min 20 /min 121.92 cm 13321 g 94 % 94 % 98.8 [degF] [...] SNOMED-CT Code Diagnosis ICD10 Code Diagnosis Note [id number] Radha Fernández MD Main - [address] [phone] 03/27/2024 13:23:51 03/29/2024 11:48:16 Diverticulitis 960536840 K57.92 Health Concerns Section Related Observation LastModified by Organization Detai ls LastModified Time None Recorded Concern Status LastModified by Organization Details LastModified Time None Recorded Advance Directives Directive None Recorded Payers Insurance Date Sequence Insurance Name Policy Number Policy Charles Covered Member ID Charles Member ID Guarantor Name 03/29/2024 1 [facility] - DOS ON OR AFTER 2023 - DUAL ELIGIBLE - ALF OPTIONS AND ONE CARE (MEDICARE REPLACEMENT/ADV ANTAGE - HMO) Sosa Joiner [id number] Sosa Joiner Notes Date Note Type Note [...] seen in the ER 03/25 at [facility] -CT attached. She has been complaining of a frontal headache -CT head and neck were negative for acute disease in the ER -she is complaining of severe abdominal pain Buffing Machine Operator [employer] POC Test Results from Amy Montana - [facility] Blood Glucose Measurement (1) [14:39] Blood Glucose: 149 mg/dL .................... .................... .................... .................... .................... .................... .................... . Buffing Machine Operator [employer] Note From Amy Montana: Sent to a [...] scans performed (results uploaded to [facility]) at [place] ED on 03/25 and prescribed Levofloxacin 500mg [...] narcotics for pain during flares. [facility]. [facility]/venous blood draw, stating she would prefer to go to ED. [facility] consulted and orders BG as pt does not check BG regularly. Pt states she usually uses CGM, but ran out, and hasn't used glucometer for over 1 week. B; [facility] calls report to [facility] ED. 911 contacted and pt care transferred to [facility]. Pt transported to [facility] ED via [facility]. .................... .................... .................... .................... .................... .................... .................... . Disposition: Fulfilled Radha Fernández MD [address], [place], [address], [facility] [employer] 03/27/2024 14:55:37 OBGyn Episode No OBEpisode recorded.
--- OUTSIDE RECORDS SUMMARY | 2025-06-03 18:48 | XMS_ITS | Clinical Summary ---
Author Organization [facility] [employer] [facility] Address [address] [place] [address] Phone Care Team Providers Care Robotype Operator Name Role Phone Adela Wasserman MD Primary Care Provider [phone] Social History Tobacco Use Types Packs/Day Years [...] patient's age to complete this topic Insurance [facility] MEDICARE Member Subscriber Plan / Payer (Ef fective 2023-Present) Name:Sosa Joiner Relation to Subscriber:Self Name:Sosa Joiner Payer ID:[id number] Group ID:[id number] Type:Not on file Address: [place] [address] [address] [address] Care Teams Robotype Operator Relationship Specialty Start Date End Date Adela Wasserman MD [address] [place] [address] , [address] [facility] [place], [place] PCP - General Internal Medicine 12/08/24
[2025-06-03 19:22] VITALS: BP 132/63; PULSE 70; RESP 18; O2SAT 97
[2025-06-03] MEDS: Lidocaine HCl Viscous 2 % 15 ML SOLUTION MUCOUS MEM (19:23)
[2025-06-03] MEDS: Magnesium Hydrox/Alum Hydrox 30 ML ORAL.SUSP PO (19:24)
[2025-06-03 20:02] VITALS: BP 141/65; PULSE 68; TEMP 36.9; O2SAT 97
[2025-06-03] MEDS: iohexoL 350 MG/ML 100 ML INFUS..BTL 85 ML IV (20:18)
== END 2025-06-03 21:30 | disposition home or self-care (01) ==
PROVIDERS: Registered Nurse Emergency; Emergency Provider Internal Medicine
DX: K29.50 Unspecified chronic gastritis without bleeding (principal); R10.2 Pelvic and perineal pain; R11.0 Nausea; E11.9 Type 2 diabetes mellitus without complications; I25.10 Atherosclerotic heart disease of native coronary artery without angina pectoris; Z79.899 Other long term (current) drug therapy; F17.210 Nicotine dependence, cigarettes, uncomplicated
CPT/HCPCS: 36415; 74177; 80053; 81001; 83690; 84484; 85025; 87086; 93005; 96360; 96361; 99284; 99285; Q9967

== ENCOUNTER → 2025-06-03 16:17 | Outpatient (BNV) | payer OTHER, SELFPAY ==
[2025-04-13 11:19] VITALS: BP 96/60; BP 96/66; BMI 22.5
== END ==
PROVIDERS: Emergency Provider Internal Medicine; Visit Provider Internal Medicine
DX: R10.9 Unspecified abdominal pain (principal)
CPT/HCPCS: 93010

== ENCOUNTER → 2025-06-03 18:58 | Outpatient (BNV) | payer OTHER, SELFPAY ==
[2025-04-13 11:19] VITALS: BP 96/60; BP 96/66; BMI 22.5
== END ==
PROVIDERS: Emergency Provider Internal Medicine; Visit Provider Radiology Diagnostic Radiology
DX: R10.10 Upper abdominal pain, unspecified (principal)
CPT/HCPCS: 74177

== ENCOUNTER 2025-06-12 11:08 | Emergency (ER) | payer OTHER, SELFPAY ==
[2025-04-13 11:19] VITALS: BP 96/60; BP 96/66; BMI 22.5
--- NOTE | ~2025-06-12 | XR_ITS ---
CLINICAL HISTORY: right low back pain 3 views lumbar spine Comparison: CT/SR - CT LUMBAR SPINE WO IV CON - 02/08/25 09:13 EDT Findings: Normal alignment. No acute fractures or dislocation. Degenerative changes at L4-5 and L5-S1 as evidenced by facet arthrosis and mild disc height loss at L5-S1. Arterial vascular calcifications present. Large amount of formed stool in the colon. IMPRESSION: No acute findings. Mild degenerative changes at L4-5 and L5-S1. This document has been electronically signed by: Sánchez Padilla MD on 06/12/2025 11:59:03
--- NOTE | ~2025-06-12 | CT_ITS ---
CLINICAL HISTORY: R flank pain, r o colic CT abdomen and pelvis without contrast Comparison: 06/03/2025 Findings: Mild right basilar mild bibasilar lung scarring. Distended gallbladder. Pancreatic fatty infiltration. Redemonstration of rectosigmoid junction anastomosis and neighboring (to the right side) 3.9 cm simple likely postsurgical fluid pocket. Moderate colonic stool. No bowel obstruction. Atherosclerotic calcifications. Small uncomplicated fat containing umbilical hernia. Hysterectomy. Normal appendix. No urinary tract stone or hydronephrosis. Unremarkable spleen, liver, adrenals, kidneys, and mildly distended urinary bladder. IMPRESSION: No significant change from prior. No urinary tract stone or hydronephrosis. This document has been electronically signed by: India Steen MD on 06/12/2025 13:22:56
--- NOTE | 2025-06-12 11:15 | ED_ITS ---
HPI - Back Pain/Injury General Chief Complaint: Back Pain/Injury Stated Complaint: pain in right lower back Time Seen by Provider: 06/12/25 11:19 Source: patient Mode of arrival: ambulatory Limitations: no limitations History of Present Illness ED Provider: Jennifer Reynoso APRN HPI Narrative: This is a 65 years old with history of hyperlipidemia, COPD, breast cancer, type 2 diabetes, renal disease, Crohn's disease, rheumatoid arthritis, H pylori, renal colic here with complaints of right back pain which radiates to her right buttocks/posterior thigh/abdomen since last evening. No known injury or trauma. No previous back surgeries, history of back pain. No associated vomiting, diarrhea, constipation, urinary complaints, fevers or chills. No associated numbness in the groin, numbness in lower extremities, weakness in the lower extremities, fevers, chills. Related Data Home Medications ?Medication ?Instructions ?Recorded ?Confirmed albuterol sulfate 90 mcg/actuation 2 inh inhalation Q4 H PRN Shortness 08/23/23 05/27/25 aerosol inhaler Of Breath Or Wheezing fluticasone fur. 200 mcg-umeclid 1 ea inhalation DAILY 02/06/24 05/27/25 62.5 mcg-vilant 25 mcg inhalat.powder (Trelegy Ellipta) Previous Rx's ?Medication ?Instructions ?Recorded walker #1 ea 02/08/23 dulaglutide 1.5 mg/0.5 mL 1.5 mg (0.5 mL) subcut TH@09 00 #6 12/30/23 subcutaneous pen injector mL (Trulicity) Shower Chair #1 ea 01/15/24 clamp on tub safety rail #1 ea 01/15/24 ez software engineer mobile bed assist support #1 ea 01/15/24 ondansetron 4 mg disintegrating 4 mg PO Q8H PRN nausea and 02/19/24 tablet vomiting #20 tabs simethicone 125 mg capsule 125 mg PO DAILY PRN gas monster n #30 04/28/24 caps rbkwygshsg-movgtmoqgqgvk-yzhcvmar 1 tab PO Q6H PRN hae adace #20 tabs 10/18/24 50 mg-325 mg-40 mg tablet blood pressure monitor #1 ea 11/04/24 blood pressure test kit-medium #1 ea 12/18/24 trazodone 50 mg tablet 50 mg PO BEDTIME PRN sleep 9 0 days 11/04/24 #90 tabs metoclopramide HCl 5 mg tablet 5 mg PO TID PRN nausea and 11/19/24 (Reglan) vomiting 30 days #90 tabs lancets 28 gauge (FreeStyle #100 ea 12/09/24 Lancets) hydroxychloroquine 200 mg tablet 200 mg PO DAILY #90 t abs 12/23/24 (Plaquenil) clopidogrel 75 mg tablet 75 mg PO DAILY #100 tabs trazodone 100 mg tablet 100 mg PO BEDTIME 90 days #9 0 tabs 02/10/25 metoprolol succinate 25 mg 25 mg PO DAILY #90 tabs tablet,extended release 24 hr pantoprazole 40 mg tablet,delayed 40 mg PO DAILY #90 t abs 02/12/25 release pen needle, diabetic 31 gauge x #100 ea 03/22/2504/02 famotidine 20 mg tablet 20 mg PO BEDTIME 90 days #90 tabs 04/06/25 aspirin 81 mg tablet,delayed 81 mg PO DAILY #90 tabs 0 04/15/25 release folic acid 1 mg tablet 1 mg PO DAILY #90 tabs 04/27 methotrexate sodium 2.5 mg tablet 17.5 mg (7 x 2.5 mg) PO QWEEK 90 04/27/25 days #91 tabs pregabalin 200 mg capsule 200 mg PO BID #60 caps 04/27 tramadol 50 mg tablet 50 mg PO BID pain 30 days #6 0 tabs 04/27/25 melatonin 1 mg tablet 1 mg PO BEDTIME for insomnia #90 05/03/25 tabs blood sugar diagnostic (FreeStyle #100 ea 05/05/25 Lite Strips) linaclotide 145 mcg capsule 145 mcg PO QAM 30 days #30 caps 05/13/25 (Linzess) amoxicillin 500 mg tablet 1,000 mg (2 x 500 mg) PO Q8H 14 05/27/25 days #84 tabs levofloxacin 500 mg tablet 500 mg PO DAILY 14 days #14 tabs 05/27/25 lithium carbonate 150 mg capsule 150 mg PO BID #60 cap s 05/27/25 pantoprazole 40 mg tablet,delayed 40 mg PO BID 14 days #28 tabs 07/10/25 release fluconazole 150 mg tablet 150 mg PO Q3D 2 doses #2 tab s 06/01/25 ondansetron 4 mg disintegrating 4 mg PO Q8H PRN nausea and 06/01/25 tablet vomiting #20 tabs sucralfate 1 gram tablet 1 g PO TID #90 tabs 06/03/25 cyclobenzaprine 10 mg tablet 10 mg PO TID PRN muscle s pasm #12 06/12/25 tabs lidocaine 5 % topical patch 1 patch topical DAILY #15 ea 06/12/25 (Lidoderm) Allergies Allergy/AdvReac Type Severity Reaction Status Date / Time methylprednisolone Allergy Severe Rash from Verified 06/12/25 11:17 Solu-Medrol shellfish derived Allergy Intermediate Hives Verified 06/12/25 11:17 etanercept (From Enbrel) AdvReac Severe Facial Verified 06/12/25 11:17 Swelling metformin AdvReac Severe Diarrhea Verified 06/12/25 11:17 metronidazole (From FLAGYL) AdvReac Severe Diarrhea Verified 06/12/25 11:17 prednisone AdvReac Intermediate hallucinations, Verified 06/12/25 11:17 more than 20 mg doses Review of Systems 2 Review of Systems: Yes all other systems are reviewed and are negative Constitutional: Constitutional: Reports no additional constitutional complaints, Denies body ache(s), Denies chills, Denies fever(s), Denies headache(s) and Denies weakness Eyes: Eyes: Reports no additional eye complaints and Denies change in vision ENT: Reports system reviewed and no additional complaints, except as documented, Denies dizziness, Denies headache(s), Denies nasal congestion, Denies nasal discharge and Denies neck pain Cardiovascular: Cardiovascular: Reports no additional cardiovascular complaints, Denies chest pain, Denies leg edema and Denies dyspnea Respiratory: Respiratory: Reports no additional respiratory complaints, Denies cough and Denies dyspnea Gastrointestinal: Gastrointestinal: Reports no additional gastrointestinal complaints, Reports abdominal pain, Denies diarrhea, Denies nausea and Denies vomiting Genitourinary: Genitourinary: Reports no additional female genitourinary complaints, Denies dysuria, Denies urinary incontinence, Denies urinary hesitancy and Denies urinary urgency Musculoskeletal: Musculoskeletal: Reports no additional musculoskeletal complaints, Reports back pain, Denies arthralgias, Denies joint swelling, Denies neck pain, Denies numbness, Reports radiating pain into limb and Denies tingling Integumentary/Breasts: Skin/Breast: Reports system reviewed and no additional complaints, except as docu and Denies rash Neurologic: Reports system reviewed and no additional complaints, except as documented, Denies Abnormal speech present, Denies dizziness, Denies headache(s), Denies numbness, Denies tingling and Denies weakness PMF Past Medical History Attestation statement: The following information was validated with the patient. 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 Acute respiratory distress Tendonitis of ankle or foot Cough Stable angina Anxiety HLD (hyperlipidemia) HTN (hypertension) COPD exacerbation Hyperkalemia Atherosclerotic cardiovascular disease Hospital discharge follow-up Colitis CVA (cerebral vascular accident) (~2017) Breast pain, right Rash Bloody diarrhea PAD (peripheral artery disease) Hyperlipidemia LDL goal <100 COPD (chronic obstructive pulmonary disease) Infiltrating ductal carcinoma of left breast, stage 2 Insomnia Dyslipidemia Bipolar 1 disorder, depressed Cough Restrictive airway disease Hypothyroid IDDM (insulin dependent diabetes mellitus) Vitamin D deficiency Osteoporosis Breast cancer Hyperparathyroidism Thyroid nodule T2DM (type 2 diabetes mellitus) Depression Fibromyalgia Seropositive rheumatoid arthritis Reactive airways dysfunction syndrome Allergic rhinitis Irritable bowel Anxiety Bronchial asthma Diabetes type 2, uncontrolled Surgical History S/P laparoscopic colectomy (04/15/24) Hx of sigmoidoscopy History of bronchoscopy Hx of endoscopy H/O cardiac catheterization History of lumpectomy of left breast History of pubovaginal sling History of esophagogastroduodenoscopy (EGD) History of tubal ligation History of colonoscopy History of bunionectomy of both great toes H/O: hysterectomy Family History Family History Mother Diabetes HTN (hypertension) Uterus cancer Malignant tumor of head Breast cancer Father Diabetes HTN (hypertension) CVD (cardiovascular disease) Heart problem Maternal Aunt Breast cancer Brother Myocardial infarction S/P CABG x 4 Family/Other FH: mental illness Family/Other Lung cancer Other Mental health disorder Social History Social History Household Members: Family Household Members Other:: sister Housing: House Are you a primary neonatal intensive care nurse to a significant other at home: No Do you presently have visiting nurse or other home services: No Unable to assess alcohol history related to: Unknown Alcohol intake: never Comment: Low fall Patient Tobacco Use Status: Current everyday Tobacco user Tobacco use type: Cigarette Cigarette Packs Per Day: 0.5 Years Smoked: 48 e-Cigarette/Vaping Use: Never Used Second Hand Smoke Exposure: No Substance Use Type: Marijuana Advance Directives: Yes Advance Directives on File: Yes Advance Directives Date on File: 12/22/21 service: No Current occupational status: disabled Current occupation: rt handed Cognitive needs: No Hearing needs: No Vision needs: Yes Physical Exam 2 Vital Signs: Vital Signs: Last Vital Signs Temp 98.1 F 06/12/25 12:34 Pulse 70 06/12/25 12:34 Resp 16 06/12/25 13:01 BP 122/63 06/12/25 12:34 Pulse Ox 98 06/12/25 12:34 O2 Del Method Room Air 06/12/25 12:34 BMI result Body Mass Index 21.1 Const: General: cooperative, healthy appearing, comfortable and no acute distress Orientation/consciousness: patient oriented x3 Limitations: no limitations HEENT: Head: Yes normal to inspection Ears: hearing grossly normal bilaterally General nose exam: Normal external nose present Face and sinus: Yes normal facial exam Mouth: Normal oral and palatal mucosa present Throat: Yes posterior oropharynx normal Eyes: General: appearance normal, both eyes and all related structures P upils: Equal, round and reactive pupils present Neck: Neck: Yes normal visual inspection Chest: Chest palpation & inspection: normal inspection of the chest Resp: Effort & Inspection: normal respiratory effort Auscultation: clear to auscultation bilaterally Cardio: Rate: regular rate Rhythm: regular rhythm Peripheral pulses: P eripheral pulses 2+ throughout GI: Inspection: Yes normal to inspection Palpation (GI): Soft to palpation, Tenderness to palpation present (GI) in the RLQ; with no rebound tenderness and no guarding Auscultation: normal bowel sounds : General: Yes no CVA tenderness Back/Spine/Pelvis: Other: Pain on palpation to right lumbar soft tissue w/ no midline tenderness/step offs or deformities Back: no CVA tenderness Thoracic/Lumbar Spine: thoracic and lumbar spine normal to inspection Skin: General skin exam: no rashes or lesions noted Neuro: General: patient oriented x3, moves all extremities, no focal motor deficits and normal sensation to monofilament Cranial nerves: Yes Equal, round and reactive pupils present Cognition (Neuro): normal cognition S peech: No Abnormal speech present Gait exam (Neuro): Normal gait present M otor exam (neuro): 5/5 motor strength present throughout Sensory Exam: Normal double simultaneous stimulation for sensation Deep tendon reflexes (DTR's): R ight patellar reflex intensity grade: 2+ and Left patellar reflex intensity grade: 2+ Extrem: General: Yes normal to inspection Course Course Course Narrative: 06/12/25 [id number] JOSEF Hernandez This is a Rapid Medical Examination (RME) performed by Ran Carreno PA-C in triage. Full HPI, ROS, assessment and treatment plan per primary provider in the Main ED. Hx: 65 yo F hx of CAD, hypothyroidism, STEMI, GERD, asthma, renal stones here for eval of right low back pain since yesterday afternoon. pain rad down R thigh and into her R abdomen. denies urinary sx. Plan: labs, UA, xr Reevaluation(s) Reevaluation #1: X-ray shows degenerative changes. CT shows moderate stool burden but no other acute finding. Labs and urine are normal. Reviewed findings with patient. Likely musculoskeletal pain. She has tramadol and Tylenol home. Will add Flexeril and Lidoderm patches. Reviewed worrisome signs and symptoms of when to return to the emergency room. Comfortable plan for discharge home Medications Administered Discontinued Medications Generic Name Dose Route Start Last Admin Trade Name Freq PRN Reason Stop Dose Admin Acetaminophen 975 mg 06/12/25 12:55 06/12/25 13:01 Acetaminophen 325 Mg Tablet PO 06/12/25 12:56 975 mg ONCE ONE Administration Ketorolac Tromethamine 15 mg 06/12/25 12:55 06/12/25 13:01 Ketorolac Tromethamine 15 Mg/Ml Vial IVPUSH 06/12/25 12:56 15 mg ONCE ONE Administration Lidocaine 1 patch 06/12/25 12:55 06/12/25 13:02 Lidocaine 4 % Patch Adh..Patch TRANSDERMA 06/12/25 12:56 1 patch ONCE ONE Administration Protocol Morphine Sulfate 2 mg 06/12/25 11:53 06/12/25 12:09 Morphine Sulfate 2 Mg/Ml Cartridge IVPUSH 06/12/25 11:54 2 mg ONCE ONE Administration Protocol Morphine Sulfate 2 mg 06/12/25 12:55 06/12/25 13:01 Morphine Sulfate 2 Mg/Ml Cartridge IVPUSH 06/12/25 12:56 2 mg ONCE ONE Administration Protocol Medical Decision Making Medical Decision Making [facility] Narrative: This is a 65 years old with history of hyperlipidemia, COPD, breast cancer, type 2 diabetes, renal disease, Crohn's disease, rheumatoid arthritis, H pylori, renal colic here with complaints of right back pain which radiates to her right buttocks/posterior thigh/abdomen since last evening. No known injury or trauma. No previous back surgeries, history of back pain. No associated vomiting, diarrhea, constipation, urinary complaints, fevers or chills. No associated numbness in the groin, numbness in lower extremities, weakness in the lower extremities, fevers, chills. There is pain on palpation to the right lumbar soft tissue with no CVA tenderness, no midline tenderness, step-offs deformities. Still some pain on palpation to the right lower quadrant of the abdomen no rebound or guarding. Abdomen is soft and nondistended with normal bowel sounds. Normal neurological exam with no focal deficits. Patient reports history of renal colic and states this feels similar. Will obtain labs, UA, CT, provide analgesia Differential Diagnosis Differential Diagnoses: The differential diagnosis associated with the presentation includes Renal colic, pyelonephritis Lumbar radiculopathy, sciatica Low suspicion for AAA, cord compression, cauda equina, malignancy based on clinical exam and history of present illness. Admission/Observation Consideration of admission/observation: Escalation of care including admission/observation considered Low suspicion for AAA, cord compression, cauda equina, malignancy based on clinical exam and history of present illness requiring advanced imaging, urgent consultation and or admission Lab Data [facility] Lab Attestation statement: I reviewed the patient's lab results. 06/12/25 12:05 06/12/25 12:05 Labs: Lab Results 06/12/25 06/12/25 Range/Units 12:05 12:21 WBC 8.3 (4.8-10.8) X10*3/uL RBC 4.35 (4.20-5.50) X10*6/uL Hgb 12.3 (12.0-16.0) g/dl Hct 37.7 (37.0-47.0) % MCV 86.7 (80.0-98.0) fL MCH 28.3 (27.0-33.0) pg MCHC 32.6 (31.0-35.0) g/dl RDW 15.8 (11.0-16.0) % Plt Count 274 (160-400) X10*3/uL MPV 10.3 (9.4-12.3) fL Immature Gran % (Auto) 0.2 (0.0-0.4) % Neut % (Auto) 58.5 (45-73) % Lymph % (Auto) 30.0 (20-40) % [place] % (Auto) 9.9 (2-11) % Eos % (Auto) 1.0 (0-4) % Baso % (Auto) 0.4 (0-2) % Lymph # (Auto) 2.5 (1.2-4.9) X10*3/uL [place] # (Auto) 0.8 (0.1-1.2) X10*3/uL Eos # (Auto) 0.1 (0.0-0.4) X10*3/uL Baso # (Auto) 0.0 (0.0-0.2) X10*3/uL Abs Immat Gran (auto) 0.02 (0.00-0.03) X10*3/uL Absolute Neuts (auto) 4.9 (2.0-8.3) x10*3/uL Absolute Nucleated RBC 0.000 (0.0-0.012) X10*3/uL Nucleated RBC % (auto) 0.0 (0.0-0.2) /100WBC Sodium 141 (135-145) mmol/L Potassium 4.8 (3.3-5.1) mmol/L Chloride 106 (96-108) mmol/L Carbon Dioxide 25 (22-29) mmol/L Anion Gap 15 (12-20) BUN 9 (9-16) mg/dL Creatinine 0.76 (0.5-1.4) mg/dL Estim Creat Clear Calc 48.9 Estimated GFR > 60 Random Glucose 92 (60-115) mg/dL Calcium 9.2 (8.4-10.2) mg/dL Magnesium 2.1 (1.6-2.6) mg/dL Total Bilirubin 0.5 (0.0-1.0) mg/dL AST 30 (5-31) U/L ALT 13 (0-31) U/L Alkaline Phosphatase 74 (39-117) U/L Total Protein 7.2 (6.5-8.0) g/dL Albumin 4.1 (3.5-5.0) g/dL Urine Color Yellow Urine Appearance Clear Urine pH 7.0 (5.0-9.0) Ur Specific [place] 1.015 (1.005-1.025) Urine Protein Negative (Neg-Trace) mg/dL Urine Glucose (UA) Negative (Negative) mg/dL Urine Ketones Negative (Negative) mg/dL Urine Blood Negative (Negative) Urine Nitrite Negative (Negative) Ur Leukocyte Esterase Negative (Negative) Independent Interpretation I performed an independent interpretation of an: Plain X-Ray and CT Scan Interpretation: Independently viewed the x-ray/Ct scan and agree with the radiology report Radiology Impression Discussion of test interpretation with radiology: I have reviewed the radiologist's reading. Radiologist Impression: [place] [id number] XRay Report Signed Patient: Sosa Gamboa MR#: [id number] : 1960 Acct:[id number] Age/Sex: 65 / F ADM Date: 06/12/25 Loc: HO.ED Attending Dr: Ordering Physician: Estella Carreno Date of Service: 06/12/25 Procedure(s): XR lumbar spine 2-3V Accession Number(s): [id number] cc: Estella Carreno; Adela Gipson MD~ CLINICAL HISTORY: right low back pain 3 views lumbar spine Comparison: CT/SR - CT LUMBAR SPINE WO IV CON - 02/08/25 09:13 EDT Findings: Normal alignment. No acute fractures or dislocation. Degenerative changes at L4-5 and L5-S1 as evidenced by facet arthrosis and mild disc height loss at L5-S1. Arterial vascular calcifications present. Large amount of formed stool in the colon. IMPRESSION: No acute findings. Mild degenerative changes at L4-5 and L5-S1. [address] [address] [address] Scan Report Signed Patient: Sosa Gamboa MR#: [id number] : 1960 Acct:[id number] Age/Sex: 65 / F ADM Date: 06/12/25 Loc: HO.ED Attending Dr: Ordering Physician: Jennifer Reynoso NP Date of Service: 06/12/25 Procedure(s): CT abdomen pelvis wo IV con Accession Number(s): [id number] cc: Jennifer Reynoso NP; Adela Gipson MD~ Report Number: [id number]: Total DLP = 289.00 mGy-cm CLINICAL HISTORY: R flank pain, r o colic CT abdomen and pelvis without contrast Comparison: 06/03/2025 Findings: Mild right basilar mild bibasilar lung scarring. Distended gallbladder. Pancreatic fatty infiltration. Redemonstration of rectosigmoid junction anastomosis and neighboring (to the right side) 3.9 cm simple likely postsurgical fluid pocket. Moderate colonic stool. No bowel obstruction. Atherosclerotic calcifications. Small uncomplicated fat containing umbilical hernia. Hysterectomy. Normal appendix. No urinary tract stone or hydronephrosis. Unremarkable spleen, liver, adrenals, kidneys, and mildly distended urinary bladder. IMPRESSION: No significant change from prior. No urinary tract stone or hydronephrosis. This document has been electronically signed by: India Steen MD on 06/12/2025 13:22:56 Tests considered The following testing was considered but not selected: Low suspicion for cord compression, cauda equina, malignancy based on clinical exam and history of present illness requiring emergent MRI Discharge Plan Discharge Clinical Impression: Lumbar radiculopathy Patient Disposition: Home, Self-Care Instructions: Lumbar Radiculopathy (ED) Additional Instructions: Heat or ice the area Gentle stretching No heavy lifting or bending Your lab work, urine testing and CT scan are normal Your x-ray shows degenerative changes Take the medications as prescribed. You may also take tylenol and tramadol at home. Follow-up with your primary care doctor for any continued symptoms Prescriptions: New lidocaine [Lidoderm] 5 % adhesive patch,medicated 1 patch topical DAILY Qty: 15 0RF Rx Instructions: leave on most painful area for up to 12 hrs cyclobenzaprine 10 mg tablet 10 mg PO TID PRN (Reason: muscle spasm) Qty: 12 0RF No Action (DME) walker Misc See Rx Instructions .Route Qty: 1 0RF Rx Instructions: with seat Trulicity 1.5 mg/0.5 mL pen injector 1.5 mg subcut TH@0900 Qty: 6 3RF (DME) Shower Chair Misc See Rx Instructions .Route Qty: 1 0RF Rx Instructions: As directed (DME) clamp on tub safety rail See Rx Instructions .Route .MEDSUPPLY Qty: 1 0RF Rx Instructions: As directed (DME) ez software engineer mobile bed assist support See Rx Instructions .Route .MEDSUPPLY Qty: 1 0RF Rx Instructions: As directed (DME) lancets [FreeStyle Lancets] 28 gauge misc See Rx Instructions .Route Qty: 100 3RF Rx Instructions: Use 1 lancet once a day trazodone 100 mg tablet 100 mg PO BEDTIME 90 Days Qty: 90 1RF metoprolol succinate 25 mg tablet extended release 24 hr 25 mg PO DAILY Qty: 90 3RF pantoprazole 40 mg tablet,delayed release (DR/EC) 40 mg PO DAILY Qty: 90 1RF (DME) pen needle, diabetic 31 gauge x 5/16 needle See Rx Instructions .ROUTE .COMPLEX Qty: 100 11RF Dose Instruction: USE 1 PEN NEEDLE 6 TIMES A DAY Rx Instructions: USE 1 PEN NEEDLE 6 TIMES A DAY famotidine 20 mg tablet 20 mg PO BEDTIME 90 Days Qty: 90 1RF aspirin 81 mg tablet,delayed release (DR/EC) 81 mg PO DAILY Qty: 90 0RF melatonin 1 mg tablet 1 mg PO BEDTIME Qty: 90 0RF (DME) FreeStyle Lite Strips Strip MISCELLANEOUS DAILY Qty: 100 1RF Rx Instructions: Use 1 test strip three times a day ondansetron 4 mg tablet,disintegrating 4 mg PO Q8H PRN (Reason: nausea and vomiting) Qty: 20 0RF gywelgbtek-stzsptggedgah-mhkl 50-325-40 mg tablet 1 tab PO Q6H PRN (Reason: haeadace) Qty: 20 0RF sucralfate 1 gram tablet 1 g PO TID Qty: 90 0RF ondansetron 4 mg tablet,disintegrating 4 mg PO Q8H PRN (Reason: nausea and vomiting) Qty: 20 0RF fluconazole 150 mg tablet 150 mg PO Q3D Qty: 2 0RF albuterol sulfate 90 mcg/actuation HFA aerosol inhaler 2 inh inhalation Q4H PRN (Reason: Shortness Of Breath Or Wheezing) (DME) blood pressure monitor Kit See Rx Instructions .Route Qty: 1 0RF Rx Instructions: As directed clopidogrel 75 mg tablet 75 mg PO DAILY Qty: 100 4RF Rx Instructions: Take 4 tablets on first day then 1 tablet daily. Trelegy Ellipta 200-62.5-25 mcg blister with device 1 ea inhalation DAILY simethicone 125 mg capsule 125 mg PO DAILY PRN (Reason: gas pain) Qty: 30 0RF trazodone 50 mg tablet 50 mg PO BEDTIME PRN (Reason: sleep) 90 Days Qty: 90 0RF (DME) blood pressure test kit-medium Kit See Rx Instructions .Route Qty: 1 0RF Rx Instructions: As directed hydroxychloroquine [Plaquenil] 200 mg tablet 200 mg PO DAILY Qty: 90 1RF metoclopramide HCl [Reglan] 5 mg tablet 5 mg PO TID PRN (Reason: nausea and vomiting) 30 Days Qty: 90 1RF Rx Instructions: Take 30 min before lunch and dinner and at bedtime tramadol 50 mg tablet 50 mg PO BID 30 Days Qty: 60 5RF methotrexate sodium 2.5 mg tablet 17.5 mg PO QWEEK 90 Days Qty: 91 1RF folic acid 1 mg tablet 1 mg PO DAILY Qty: 90 1RF pregabalin 200 mg capsule 200 mg PO BID Qty: 60 4RF Linzess 145 mcg capsule 145 mcg PO QAM 30 Days Qty: 30 3RF amoxicillin 500 mg tablet 1,000 mg PO Q8H 14 Days Qty: 84 0RF pantoprazole 40 mg tablet,delayed release (DR/EC) 40 mg PO BID 14 Days Qty: 28 0RF levofloxacin 500 mg tablet 500 mg PO DAILY 14 Days Qty: 14 0RF lithium carbonate 150 mg capsule 150 mg PO BID Qty: 60 2RF Referrals: Adela Gipson MD [Primary Care Provider, Internal Medicine] - 1 week Referral Note: F/u ER visit Print Language: Nauruan
[2025-06-12 11:16] VITALS: BP 129/66; PULSE 75; RESP 18; TEMP 36.4; O2SAT 97; BMI 21.1
--- OUTSIDE RECORDS SUMMARY | 2025-06-12 11:34 | XMS_ITS | Clinical Summary ---
Author Organization [facility] Address [address] [place] [address] Phone Care Team Providers Care Weaving Teacher Name Role Phone Adela Gipson MD Primary Care Provider [phone] Allergies Active Allergy Reactions Criticality Noted Date [...] Most Recently Relevant to Health Maintenance [place] [address] Care Teams Weaving Teacher Relationship Specialty Start Date End Date Adela Gipson MD [address] [place] [address] PCP - General Internal Medicine 05/28/22
--- OUTSIDE RECORDS SUMMARY | 2025-06-12 11:34 | XMS_ITS | Clinical Summary ---
Author Organization [facility] [employer] [facility] Address [address] [address] Phone Care Team Providers Care Resource Manager Name Role Phone Adela Wasserman MD Primary Care Provider [phone] Social History Tobacco Use Types Packs/Day Years [...] Panel) 10/21/2022 Colorectal Cancer Screening: Colonoscopy 10/21/2022 HIV Screening 10/21/2022 Hepatitis C Screening 10/21/2022 Medicare Annual Wellness Visit 10/21/2022 Social Influencers of Health Screening 10/21/2022 COVID-19 Vaccine ( - 2023-2 5 season) 2024 Depression Screening 11/18/2024 Hypertension/CHF/CAD Annual BMP Blood Test 12/13/2024 Influenza [...] patient's age to complete this topic Insurance [facility] MEDICARE Member Subscriber Plan / Payer (Ef fective 2023-Present) Name:Sosa Joiner Relation to Subscriber:Self Name:Sosa Joiner Payer ID:[id number] Group ID:[id number] Type:Not on file Address: [place] [address] [address] [phone] Care Teams Resource Manager Relationship Specialty Start Date End Date Adela Wasserman MD [address] [place] [address] , [address] [facility] D/B/A: [facility] [place], [place] PCP - General Internal Medicine 12/08/24
--- OUTSIDE RECORDS SUMMARY | 2025-06-12 11:34 | XMS_ITS | Data Portability ---
Author Organization [employer] Address [address] [place] [phone] Care Team Providers Care Network And Threat Support Specialist Name Role Phone HIM CCA Primary Care Provider Assessment Encounter Date Assessment Date Assessment LastModified by Organization Details LastModified Time 03/27/2024 03/27/2024 I provided real -time medical direction via phone for this encounter, and was available for additional phone based assistance as needed. I have reviewed and agree with the Assessment and Plan as documented by the Education Analyst. We discussed the diagnostic uncertainty of [...] for evaluation and management. Report called to [facility] ER [email or web address] Not available 03/27/2024 13:41:34 Plan of Treatment [...] available 03/27/2024 6 RxNorm Radha Fernández MD [address] [place] [address],[address], [place], [address] [facility] [employer] 13:34:28 Medications Name Sig Start Date Stop [...] 4 114 /min 20 /min 121.92 cm 48346 g 94 % 94 % 98.8 [degF] [...] SNOMED-CT Code Diagnosis ICD10 Code Diagnosis Note [id number] Radha Fernández MD Main - [address] [address] 03/27/2024 13:23:51 03/29/2024 11:48:16 Diverticulitis [id number] K57.92 Health Concerns Section Related Observation LastModified [...] (MEDICARE REPLACEMENT/ADV ANTAGE - HMO) Sosa Joiner [id number] Sosa Joiner Notes Date Note Type Note Provider Name and Address Organization Details Recorded Time 03/27/2024 text/html ROS as noted in the HPI HPI: Member has diverticulitis. She was at [...] was seen in the ER 03/25 at [facility] -CT attached. She has been complaining of a frontal headache -CT head and neck were negative for acute disease in the ER -she is complaining of severe abdominal pain Education Analyst POC Test Results from Amy Montana - [facility] Blood Glucose Measurement (1) [14:39] Blood Glucose: 149 mg/dL .................... .................... .................... .................... .................... .................... .................... . Education Analyst Note From Amy Montana: Sent to [...] d CT scans performed (results uploaded to [facility]) at [place] ED on 03/25 and prescribed Levofloxacin 500mg [...] narcotics for pain during flares. [facility]. [facility] access/venous blood draw, stating she would prefer to go to ED. [facility] consulted and orders BG as pt does not check BG regularly. Pt states she usually uses CGM, but ran out, and hasn't used glucometer for over 1 week. B; [facility] calls report to [facility] ED. 911 contacted and pt care transferred to [facility] crew. Pt transported to [facility] ED via [place]. .................... .................... .................... .................... .................... .................... .................... . Disposition: Fulfilled Radha Fernández MD [address] [facility] [facility], [place], [address], NATA - EDD MAO 03/27/2024 14:55:37 OBGyn Episode No OBEpisode recorded.
--- OUTSIDE RECORDS SUMMARY | 2025-06-12 11:34 | XMS_ITS | Clinical Summary ---
Author Organization [facility] Address [address] [address] Phone Care Team Providers Care Tail End Rider Name Role Phone Unavailable Primary Care Provider Unavailabl e Allergies Active Allergy Reactions Criticality Noted Date Comments Ibuprofen 07/17/2022 Metronidazole 07/17/2022 Shellfish Containing Products 2022 Medications albuterol 90 mcg/actuation inhaler INHALE 1 INHALATION 4 TIMES A DAY NEEDED FOR SHORTNESS OF BREATH OR WHEEZING 07/12/20 23 Active aspirin 81 MG EC tablet Take 1 tablet by mouth every morning. 07/01/20 23 Active azithromycin (ZITHROMAX) 250 MG tablet TAKE 1 TABLET BY MOUTH 3 TIMES A WEEK FOR COPD/BRONCHITIS FOR 10 DAYS, SATURDAY, SATURDAY, AND Saturday05/01/20 23 Active carisoprodol (SOMA) 250 mg tablet TAKE 1 TABLET BY MOUTH 3 TIMES A DAY NEEDED FOR MUSCLE PAIN 05/23/20 23 Active guaiFENesin-codein e (ROBITUSSIN AC) 100-10 mg/5 mL liquid TAKE 10 ML ORALLY EVERY 4 TO 6 HOURS NEEDED FOR UNREMITTING COUGH FOR 30 DAYS *NOT COVERED* 05/27/20 23 Active cyclobenzaprine (FLEXERIL) 10 MG tablet TAKE 1 TABLET BY MOUTH 3 TIMES A DAY NEEDED FOR MUSCLSE SPASM 05/16/20 23 Active dicyclomine (BENTYL) 10 MG capsule TAKE 1 CAPSULE BY MOUTH 3 TIMES A DAY NEEDED FOR ABDOMINAL PAIN 07/09/20 22 Active TRULICITY 1.5 mg/0.5 mL subcutaneous injection INJECT 1.5 MG (0.5 ML) SUBCUTANEOUSLY EVERY SATURDAY AT 9:00 AM FOR 90 DAYS 07/07/20 23 Active famotidine (PEPCID) 20 MG tablet Take 20 mg by mouth nightly at bedtime. at bedtime. 05/14/20 23 Active NOVOLOG FLEXPEN U-100 INSULIN 100 unit/mL (3 mL) flexpen INJECT 2 TO 10 UNIT SUBCUTANEOUSLY 3 TIMES A DAY BEFORE MEALS FOR 30 DAYS. VIA SLIDING SCALE 07/06/20 23 Active TRESIBA FLEXTOUCH U-100 injection pen INJECT 20 UNITS (0.2 ML) SUBCUTANEOUSLY BEDTIME 06/04/20 23 Active ipratropium-albute roL (DUONEB) 0.5-3 mg (2.5 mg base)/3 mL nebulizer solution 3 ML INHALED VIA NEBULIZEREVERY 6 HOURS 06/13/20 23 Active letrozole (FEMARA) 2.5 mg tablet Take 1 tablet by mouth every morning. 05/04/20 23 Active levalbuterol (XOPENEX HFA) 45 mcg/actuation inhaler INHALE 2 PUFFS BY MOUTH EVERY 4 TO 6 HOURS NEEDED FOR SHORTNESS OF BREATH FOR 30 DAYS 06/13/20 23 Active ondansetron (ZOFRAN-ODT) 8 MG disintegrating tablet DISSOLVE 1 TABLET EVERY 8 HOURS NEEDED FOR NAUSEA AND VOMITING FOR 30 DAYS 04/24/20 23 Active predniSONE (DELTASONE) 5 MG tablet TAKE 1 TABLET BY MOUTH DAILY FOR FOR ASTHMA FOR 30 DAYS 07/03/20 23 Active pantoprazole (PROTONIX) 40 MG tablet TAKE 1 TAB 40 MG ORALLY 2 TIMES A DAY 06/22/20 22 Active pregabalin (LYRICA) 200 MG capsule Take 200 mg by mouth 2 (two) times a day. 06/05/20 23 Active traZODone (DESYREL) 100 MG tablet Take 100 mg by mouth nightly at bedtime. at bedtime. 06/27/20 23 Active Social History Tobacco Use Types Packs/Day Years Used Date Smoking Tobacco: Never Assessed Education Answer Date Recorded Are you interested in more education? Not on geovany e 03/15/2023 Are you concerned about learning? Not on file 03/15/2023 No 03/15/2023 No 03/15/2023 Digital Access Answer Date Recorded No 04/16/2023 No 04/16/2023 Reliable internet access at home? Not on file 04/16/2023 Device with a working camera? Not on file Comments Unknown Sex and Gender Information Value Date Recorded Sex Assigned at Female 07/24/2023 11:46 AM EDT Legal Sex Female 2:31 PM EST Gender Identity Female 07/24/2023 11:46 AM EDT Sexual Orientation Straight 07/24/2023 11 :46 AM EDT Last Filed Vital Signs Vital Sign Reading Time Taken Comments Blood Pressure 124/79 07/24/2023 11:45 AM EDT Pulse 111 07/24/2023 11:45 AM EDT Temperature 36.1 C (97 F) 07/24/2023 11:45 AM EDT Respiratory Rate 20 07/24/2023 11:45 AM EDT Oxygen Saturation 96% 07/24/2023 11:45 AM EDT Inhaled Oxygen Concentration - - Weight - - Height - - Body Mass Index - - Plan of Treatment Not on file Medical Devices Not on file Insurance [place] & B Additional Source Comments The information contained in this document represents components of the legal health record. It is not the complete legal health record.[facility]
[2025-06-12 12:09] VITALS: RESP 15
[2025-06-12 12:09] LABS: MANUAL DIFF FLAG NO
[2025-06-12 12:12] LABS: Hematocrit 37.7 % (37.0-47.0); Hemoglobin 12.3 g/dl (12.0-16.0); Imm Gran Abs Auto 0.02 X10*3/uL (0.00-0.03); Imm Gran Pct Auto 0.2 % (0.0-0.4); Lymphocytes Absolute Auto 2.5 X10*3/uL (1.2-4.9); Mean Corpuscular HGB Conc 32.6 g/dl (31.0-35.0); Mean Corpuscular Hemoglobin 28.3 pg (27.0-33.0); Mean Corpuscular Volume 86.7 fL (80.0-98.0); NRBC Abs Auto 0.000 X10*3/uL (0.0-0.012); NRBC Pct Auto 0.0 /100WBC (0.0-0.2); Platelet Count 274 X10*3/uL (160-400); Red Blood Count 4.35 X10*6/uL (4.20-5.50); White Blood Count 8.3 X10*3/uL (4.8-10.8)
[2025-06-12 12:28] LABS: Appearance Urine Clear; Glucose Urine UA Negative (Negative); PH 7.0 (5.0-9.0); Specific Gravity - Urine 1.015 (1.005-1.025)
[2025-06-12 12:34] VITALS: BP 122/63; PULSE 70; RESP 18; TEMP 36.7; O2SAT 98
[2025-06-12 12:41] LABS: Alanine Aminotransferase 13 U/L (0-31); Albumin Level 4.1 g/dL (3.5-5.0); Alkaline Phosphatase 74 U/L (39-117); Anion Gap 15 (12-20); Aspartate Amino Transferase 30 U/L (5-31); Blood Urea Nitrogen 9 mg/dL (9-16); Calcium 9.2 mg/dL (8.4-10.2); Carbon Dioxide 25 mmol/L (22-29); Chloride 106 mmol/L (96-108); Creatinine Clr Calc Pharmacy 48.9; Estimated Glomerular Filt Rate > 60; Magnesium 2.1 mg/dL (1.6-2.6); Potassium 4.8 mmol/L (3.3-5.1); Sodium 141 mmol/L (135-145); Total Protein 7.2 g/dL (6.5-8.0)
[2025-06-12 13:01] VITALS: RESP 16
[2025-06-12] MEDS: Lidocaine 4 % Patch ADH..PATCH 1 PATCH TRANSDERMA (13:02)
[2025-06-12 13:58] VITALS: BP 122/63; PULSE 70; RESP 18; TEMP 36.7; O2SAT 98
== END 2025-06-12 14:00 | disposition home or self-care (01) ==
PROVIDERS: Physician Assistant Medical; Emergency Provider Emergency Medicine; PCP Internal Medicine
DX: M54.16 Radiculopathy, lumbar region (principal); M54.50 Low back pain, unspecified; E11.9 Type 2 diabetes mellitus without complications; I10 Essential (primary) hypertension; E78.5 Hyperlipidemia, unspecified; E03.9 Hypothyroidism, unspecified; Z86.73 Personal history of transient ischemic attack (TIA), and cerebral infarction without residual deficits; Z79.4 Long term (current) use of insulin; Z79.899 Other long term (current) drug therapy
CPT/HCPCS: 36415; 72100; 74176; 80053; 81003; 83735; 85025; 96374; 96375; 96376; 99284; 99285; J1885; J2270

== ENCOUNTER → 2025-06-12 11:17 | Outpatient (BNV) | payer OTHER, SELFPAY ==
[2025-04-13 11:19] VITALS: BP 96/60; BP 96/66; BMI 22.5
== END ==
PROVIDERS: Emergency Provider Emergency Medicine; PCP Internal Medicine; Visit Provider Radiology Diagnostic Radiology
DX: K86.89 Other specified diseases of pancreas (principal); M51.360 Other intervertebral disc degeneration, lumbar region with discogenic back pain only
CPT/HCPCS: 72100; 74176

== ENCOUNTER 2025-06-25 10:26 | Emergency (ER) | payer OTHER, SELFPAY ==
[2025-04-13 11:19] VITALS: BP 96/60; BP 96/66; BMI 22.5
--- NOTE | 2025-06-25 10:41 | ED.BACK ---
HPI - Back Pain/Injury General Chief Complaint: General Medical Stated Complaint: R Lower Leg Hip Pain No Injury Time Seen by Provider: 06/25/25 15:05 Related Data Home Medications ?Medication ?Instructions ?Recorded ?Confirmed albuterol sulfate 90 mcg/actuation 2 inh inhalation Q4H PRN Shortness 08/23/23 05/27/25 aerosol inhaler Of Breath Or Wheezing fluticasone fur. 200 mcg-umeclid 1 ea inhalation DAILY 02/06/24 05/27/25 62.5 mcg-vilant 25 mcg inhalat.powder (Trelegy Ellipta) Previous Rx's ?Medication ?Instructions ?Recorded walker #1 ea 02/08/23 dulaglutide 1.5 mg/0.5 mL 1.5 mg (0.5 mL) subcut TH@0900 #6 12/30/23 subcutaneous pen injector mL (Trulicity) Shower Chair #1 ea 01/15/24 clamp on tub safety rail #1 ea 01/15/24 ez design project manager bed assist support #1 ea 01/15/24 ondansetron 4 mg disintegrating 4 mg PO Q8H PRN nausea and 02/19/24 tablet vomiting #20 tabs simethicone 125 mg capsule 125 mg PO DAILY PRN gas pain #30 04/28/24 caps evsdeamntt-cegusruggtuqu-kwlrhxjd 1 tab PO Q6H PRN haeadace #20 tabs 10/18/24 50 mg-325 mg-40 mg tablet blood pressure monitor #1 ea 11/04/24 blood pressure test kit-medium #1 ea 11/04/24 trazodone 50 mg tablet 50 mg PO BEDTIME PRN sleep 90 days 11/04/24 #90 tabs metoclopramide HCl 5 mg tablet 5 mg PO TID PRN nausea and 11/19/24 (Reglan) vomiting 30 days #90 tabs lancets 28 gauge (FreeStyle #100 ea 12/09/24 Lancets) clopidogrel 75 mg tablet 75 mg PO DAILY #100 tabs 02/10/25 trazodone 100 mg tablet 100 mg PO BEDTIME 90 days #90 tabs 02/10/25 metoprolol succinate 25 mg 25 mg PO DAILY #90 tabs 02/11/25 tablet,extended release 24 hr pantoprazole 40 mg tablet,delayed 40 mg PO DAILY #90 tabs 02/12/25 release pen needle, diabetic 31 gauge x #100 ea 03/22/2504/02 famotidine 20 mg tablet 20 mg PO BEDTIME 90 days #90 tabs 04/06/25 aspirin 81 mg tablet,delayed 81 mg PO DAILY #90 tabs 04/15/25 release folic acid 1 mg tablet 1 mg PO DAILY #90 tabs 04/27/25 methotrexate sodium 2.5 mg tablet 17.5 mg (7 x 2.5 mg) PO QWEEK 90 04/27/25 days #91 tabs pregabalin 200 mg capsule 200 mg PO BID #60 caps 04/27/25 tramadol 50 mg tablet 50 mg PO BID pain 30 days #60 tabs 04/27/25 melatonin 1 mg tablet 1 mg PO BEDTIME for insomnia #90 05/03/25 tabs blood sugar diagnostic (FreeStyle #100 ea 05/05/25 Lite Strips) linaclotide 145 mcg capsule 145 mcg PO QAM 30 days #30 caps 05/13/25 (Linzess) amoxicillin 500 mg tablet 1,000 mg (2 x 500 mg) PO Q8H 14 05/27/25 days #84 tabs levofloxacin 500 mg tablet 500 mg PO DAILY 14 days #14 tabs 05/27/25 lithium carbonate 150 mg capsule 150 mg PO BID #60 caps 05/27/25 pantoprazole 40 mg tablet,delayed 40 mg PO BID 14 days #28 tabs 05/27/25 release fluconazole 150 mg tablet 150 mg PO Q3D 2 doses #2 tabs 06/01/25 ondansetron 4 mg disintegrating 4 mg PO Q8H PRN nausea and 06/01/25 tablet vomiting #20 tabs sucralfate 1 gram tablet 1 g PO TID #90 tabs 06/03/25 cyclobenzaprine 10 mg tablet 10 mg PO TID PRN muscle spasm #12 06/12/25 tabs lidocaine 5 % topical patch 1 patch topical DAILY #15 ea 06/12/25 (Lidoderm) hydroxychloroquine 200 mg tablet 200 mg PO DAILY #90 tabs 06/17/25 (Plaquenil) Allergies Allergy/AdvReac Type Severity Reaction Status Date / Time methylprednisolone Allergy Severe Rash from Verified 06/25/25 10:44 Solu-Medrol shellfish derived Allergy Intermediate Hives Verified 06/25/25 10:44 etanercept (From Enbrel) AdvReac Severe Facial Verified 06/25/25 10:44 Swelling metformin AdvReac Severe Diarrhea Verified 06/25/25 10:44 metronidazole (From FLAGYL) AdvReac Severe Diarrhea Verified 06/25/25 10:44 prednisone AdvReac Intermediate hallucinations, Verified 06/25/25 10:44 more than 20 mg doses PMFSH Past Medical History Medical History CAD (coronary artery disease) NSTEMI (non-ST elevated myocardial infarction) GERD (gastroesophageal reflux disease) Diverticulitis 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 Acute respiratory distress Tendonitis of ankle or foot Cough Stable angina Anxiety HLD (hyperlipidemia) HTN (hypertension) COPD exacerbation Hyperkalemia Atherosclerotic cardiovascular disease Hospital discharge follow-up Colitis CVA (cerebral vascular accident) (~2017) Breast pain, right Rash Bloody diarrhea PAD (peripheral artery disease) Hyperlipidemia LDL goal <100 COPD (chronic obstructive pulmonary disease) Infiltrating ductal carcinoma of left breast, stage 2 Insomnia Dyslipidemia Bipolar 1 disorder, depressed Cough Restrictive airway disease Hypothyroid IDDM (insulin dependent diabetes mellitus) Vitamin D deficiency Osteoporosis Breast cancer Hyperparathyroidism Thyroid nodule T2DM (type 2 diabetes mellitus) Depression Fibromyalgia Seropositive rheumatoid arthritis Reactive airways dysfunction syndrome Allergic rhinitis Irritable bowel Anxiety Bronchial asthma Diabetes type 2, uncontrolled Surgical History S/P laparoscopic colectomy (04/15/24) Hx of sigmoidoscopy History of bronchoscopy Hx of endoscopy H/O cardiac catheterization History of lumpectomy of left breast History of pubovaginal sling History of esophagogastroduodenoscopy (EGD) History of tubal ligation History of colonoscopy History of bunionectomy of both great toes H/O: hysterectomy Family History Family History Mother Diabetes HTN (hypertension) Uterus cancer Malignant tumor of head Breast cancer Father Diabetes HTN (hypertension) CVD (cardiovascular disease) Heart problem Maternal Aunt Breast cancer Brother Myocardial infarction S/P CABG x 4 Family/Other FH: mental illness Family/Other Lung cancer Other Mental health disorder Social History Social History Household Members: Family Household Members Other:: sister Housing: House Are you a primary healthcare sales representative to a significant other at home: No Do you presently have visiting nurse or other home services: No Unable to assess alcohol history related to: Unknown Alcohol intake: never Comment: Low fall Patient Tobacco Use Status: Current everyday Tobacco user Tobacco use type: Cigarette Cigarette Packs Per Day: 0.5 Years Smoked: 48 e-Cigarette/Vaping Use: Never Used Second Hand Smoke Exposure: No Substance Use Type: Marijuana Advance Directives Date on File: 12/22/21 service: No Current occupational status: disabled Current occupation: rt handed Cognitive needs: No Hearing needs: No Vision needs: Yes Physical Exam Vital Signs: Vital Signs: Last Vital Signs Temp 98 F 06/25/25 14:44 Pulse 71 06/25/25 14:44 Resp 16 06/25/25 14:44 BP 137/71 06/25/25 14:44 Pulse Ox 99 06/25/25 14:44 O2 Del Method Room Air 06/25/25 14:44 BMI result Body Mass Index 21.7 Course Course Course Narrative: 65 yo female with PMH of CAD s/p stent, Crohns, hypothyroidism, GERD. sciatica x 2 weeks ago - had normal CT scan other than constipation and no sig lumbar findings, no b/b incontinence, she has R sided numbness in her labia and R upper thigh. No thinners and no IVDA. At this time will need to be further evaluated for CE though needs closer exam/rectal exam this is a RAPID medical screening exam the rest of the history and physical exam is to be done by the main provider. PRETTY 06/25/25 1045am Medical Decision Making Lab Data 06/25/25 15:04 06/25/25 15:04 Labs: Lab Results 06/25/25 Range/Units 15:04 WBC 7.8 (4.8-10.8) X10*3/uL RBC 4.42 (4.20-5.50) X10*6/uL Hgb 12.5 (12.0-16.0) g/dl Hct 38.6 (37.0-47.0) % MCV 87.3 (80.0-98.0) fL MCH 28.3 (27.0-33.0) pg MCHC 32.4 (31.0-35.0) g/dl RDW 15.1 (11.0-16.0) % Plt Count 321 (160-400) X10*3/uL MPV 10.8 (9.4-12.3) fL Immature Gran % (Auto) 0.3 (0.0-0.4) % Neut % (Auto) 56.9 (45-73) % Lymph % (Auto) 33.9 (20-40) % [place] % (Auto) 7.2 (2-11) % Eos % (Auto) 1.2 (0-4) % Baso % (Auto) 0.5 (0-2) % Lymph # (Auto) 2.7 (1.2-4.9) X10*3/uL [place] # (Auto) 0.6 (0.1-1.2) X10*3/uL Eos # (Auto) 0.1 (0.0-0.4) X10*3/uL Baso # (Auto) 0.0 (0.0-0.2) X10*3/uL Abs Immat Gran (auto) 0.02 (0.00-0.03) X10*3/uL Absolute Neuts (auto) 4.5 (2.0-8.3) x10*3/uL Absolute Nucleated RBC 0.000 (0.0-0.012) X10*3/uL Nucleated RBC % (auto) 0.0 (0.0-0.2) /100WBC Sodium 140 (135-145) mmol/L Potassium 4.0 (3.3-5.1) mmol/L Chloride 107 (96-108) mmol/L Carbon Dioxide 28 (22-29) mmol/L Anion Gap 9 L (12-20) BUN 10 (9-16) mg/dL Creatinine 0.69 (0.5-1.4) mg/dL Estim Creat Clear Calc 53.8 Estimated GFR > 60 Random Glucose 96 (60-115) mg/dL Calcium 8.9 (8.4-10.2) mg/dL Total Bilirubin 0.2 (0.0-1.0) mg/dL AST 21 (5-31) U/L ALT 11 (0-31) U/L Alkaline Phosphatase 78 (39-117) U/L Total Protein 7.1 (6.5-8.0) g/dL Albumin 4.2 (3.5-5.0) g/dL Lipase 23 (8-78) U/L Discharge Plan Discharge Clinical Impression: Acute pain of right hip Patient Disposition: Left W/O Completing Treatment Prescriptions: No Action (DME) walker Misc See Rx Instructions .Route Qty: 1 0RF Rx Instructions: with seat Trulicity 1.5 mg/0.5 mL pen injector 1.5 mg subcut TH@0900 Qty: 6 3RF (DME) Shower Chair Misc See Rx Instructions .Route Qty: 1 0RF Rx Instructions: As directed (DME) clamp on tub safety rail See Rx Instructions .Route .MEDSUPPLY Qty: 1 0RF Rx Instructions: As directed (DME) ez design project manager bed assist support See Rx Instructions .Route .MEDSUPPLY Qty: 1 0RF Rx Instructions: As directed (DME) lancets [FreeStyle Lancets] 28 gauge misc See Rx Instructions .Route Qty: 100 3RF Rx Instructions: Use 1 lancet once a day trazodone 100 mg tablet 100 mg PO BEDTIME 90 Days Qty: 90 1RF metoprolol succinate 25 mg tablet extended release 24 hr 25 mg PO DAILY Qty: 90 3RF pantoprazole 40 mg tablet,delayed release (DR/EC) 40 mg PO DAILY Qty: 90 1RF (DME) pen needle, diabetic 31 gauge x 5/16 needle See Rx Instructions .ROUTE .COMPLEX Qty: 100 11RF Dose Instruction: USE 1 PEN NEEDLE 6 TIMES A DAY Rx Instructions: USE 1 PEN NEEDLE 6 TIMES A DAY famotidine 20 mg tablet 20 mg PO BEDTIME 90 Days Qty: 90 1RF aspirin 81 mg tablet,delayed release (DR/EC) 81 mg PO DAILY Qty: 90 0RF melatonin 1 mg tablet 1 mg PO BEDTIME Qty: 90 0RF (DME) FreeStyle Lite Strips Strip MISCELLANEOUS DAILY Qty: 100 1RF Rx Instructions: Use 1 test strip three times a day hydroxychloroquine [Plaquenil] 200 mg tablet 200 mg PO DAILY Qty: 90 1RF ondansetron 4 mg tablet,disintegrating 4 mg PO Q8H PRN (Reason: nausea and vomiting) Qty: 20 0RF gmslxvlcvq-gfmaamewpahmo-euxt 50-325-40 mg tablet 1 tab PO Q6H PRN (Reason: haeadace) Qty: 20 0RF sucralfate 1 gram tablet 1 g PO TID Qty: 90 0RF ondansetron 4 mg tablet,disintegrating 4 mg PO Q8H PRN (Reason: nausea and vomiting) Qty: 20 0RF fluconazole 150 mg tablet 150 mg PO Q3D Qty: 2 0RF lidocaine [Lidoderm] 5 % adhesive patch,medicated 1 patch topical DAILY Qty: 15 0RF Rx Instructions: leave on most painful area for up to 12 hrs cyclobenzaprine 10 mg tablet 10 mg PO TID PRN (Reason: muscle spasm) Qty: 12 0RF albuterol sulfate 90 mcg/actuation HFA aerosol inhaler 2 inh inhalation Q4H PRN (Reason: Shortness Of Breath Or Wheezing) (DME) blood pressure monitor Kit See Rx Instructions .Route Qty: 1 0RF Rx Instructions: As directed clopidogrel 75 mg tablet 75 mg PO DAILY Qty: 100 4RF Rx Instructions: Take 4 tablets on first day then 1 tablet daily. Trelegy Ellipta 200-62.5-25 mcg blister with device 1 ea inhalation DAILY simethicone 125 mg capsule 125 mg PO DAILY PRN (Reason: gas pain) Qty: 30 0RF trazodone 50 mg tablet 50 mg PO BEDTIME PRN (Reason: sleep) 90 Days Qty: 90 0RF (DME) blood pressure test kit-medium Kit See Rx Instructions .Route Qty: 1 0RF Rx Instructions: As directed metoclopramide HCl [Reglan] 5 mg tablet 5 mg PO TID PRN (Reason: nausea and vomiting) 30 Days Qty: 90 1RF Rx Instructions: Take 30 min before lunch and dinner and at bedtime tramadol 50 mg tablet 50 mg PO BID 30 Days Qty: 60 5RF methotrexate sodium 2.5 mg tablet 17.5 mg PO QWEEK 90 Days Qty: 91 1RF folic acid 1 mg tablet 1 mg PO DAILY Qty: 90 1RF pregabalin 200 mg capsule 200 mg PO BID Qty: 60 4RF Linzess 145 mcg capsule 145 mcg PO QAM 30 Days Qty: 30 3RF amoxicillin 500 mg tablet 1,000 mg PO Q8H 14 Days Qty: 84 0RF pantoprazole 40 mg tablet,delayed release (DR/EC) 40 mg PO BID 14 Days Qty: 28 0RF levofloxacin 500 mg tablet 500 mg PO DAILY 14 Days Qty: 14 0RF lithium carbonate 150 mg capsule 150 mg PO BID Qty: 60 2RF Discharge Date/Time: 06/25/25 16:29
[2025-06-25 10:42] VITALS: BP 139/66; PULSE 82; RESP 18; TEMP 36.6; O2SAT 95; BMI 21.7
--- OUTSIDE RECORDS SUMMARY | 2025-06-25 11:57 | XMS_ITS | Clinical Summary ---
Author Organization [facility] Address [address] [place] [address] Phone Care Team Providers Care Cotton Factor Name Role Phone Adela Gipson MD Primary Care Provider Allergies Active Allergy Reactions Criticality Noted Date [...] Most Recently Relevant to Health Maintenance [place] [address] Care Teams Cotton Factor Relationship Specialty Start Date End Date Adela Gipson MD [address] [place] [address] PCP - General Internal Medicine 05/28/22
--- OUTSIDE RECORDS SUMMARY | 2025-06-25 11:57 | XMS_ITS | Clinical Summary ---
Author Organization [facility] Address [address] [place] [address] Phone Care Team Providers Care Miller Head Wet Process Name Role Phone Adela Wasserman MD Primary Care Provider [phone] Social History Tobacco Use Types Packs/Day Years [...] ID:[id number] Group ID:[id number] Type:Not on file Address: [place] [address] [address] [address] Care Teams Miller Head Wet Process Relationship Specialty Start Date End Date Adela Wasserman MD [address] [place] [address] , [address] [facility] D/B[facility]A: [facility] [place], [place] PCP - General Internal Medicine 12/08/24
--- OUTSIDE RECORDS SUMMARY | 2025-06-25 11:57 | XMS_ITS | Clinical Summary ---
Author Organization [facility] Address [address] [address] Phone Care Team Providers Care International Manager Name Role Phone Unavailable Primary Care Provider [...] It is not the complete legal health record.[facility]
[2025-06-25 14:42] VITALS: BP 137/71; PULSE 71; RESP 16; TEMP 36.6; O2SAT 98
[2025-06-25 14:44] VITALS: BP 137/71; PULSE 71; RESP 16; TEMP 36.6; O2SAT 99
[2025-06-25 15:08] LABS: MANUAL DIFF FLAG NO
[2025-06-25 15:12] LABS: Hematocrit 38.6 % (37.0-47.0); Hemoglobin 12.5 g/dl (12.0-16.0); Imm Gran Abs Auto 0.02 X10*3/uL (0.00-0.03); Imm Gran Pct Auto 0.3 % (0.0-0.4); Lymphocytes Absolute Auto 2.7 X10*3/uL (1.2-4.9); Mean Corpuscular HGB Conc 32.4 g/dl (31.0-35.0); Mean Corpuscular Hemoglobin 28.3 pg (27.0-33.0); Mean Corpuscular Volume 87.3 fL (80.0-98.0); NRBC Abs Auto 0.000 X10*3/uL (0.0-0.012); NRBC Pct Auto 0.0 /100WBC (0.0-0.2); Platelet Count 321 X10*3/uL (160-400); Red Blood Count 4.42 X10*6/uL (4.20-5.50); White Blood Count 7.8 X10*3/uL (4.8-10.8)
[2025-06-25 15:32] LABS: Alanine Aminotransferase 11 U/L (0-31); Albumin Level 4.2 g/dL (3.5-5.0); Alkaline Phosphatase 78 U/L (39-117); Anion Gap 9 (12-20); Aspartate Amino Transferase 21 U/L (5-31); Blood Urea Nitrogen 10 mg/dL (9-16); Calcium 8.9 mg/dL (8.4-10.2); Carbon Dioxide 28 mmol/L (22-29); Chloride 107 mmol/L (96-108); Creatinine Clr Calc Pharmacy 53.8; Estimated Glomerular Filt Rate > 60; Lipase 23 U/L (8-78); Potassium 4.0 mmol/L (3.3-5.1); Sodium 140 mmol/L (135-145); Total Protein 7.1 g/dL (6.5-8.0)
--- NOTE | 2025-06-25 16:26 | PC.NURSE ---
Patient became frustrated with wait times. Patient wanted to see a Dr., explained to patient the doctor is currently busy with a critical patient. Patient said she is leaving. Attempted to convince patient to stay patient said I want to leave its very busy patient left without completing treatment.
== END 2025-06-25 16:29 | disposition left against medical advice (07) ==
PROVIDERS: Emergency Provider Emergency Medicine; PCP Internal Medicine
DX: M25.551 Pain in right hip (principal)
CPT/HCPCS: 36415; 80053; 83690; 85025; 99283; 99284

== ENCOUNTER 2025-07-07 11:13 | Outpatient (AMB) | payer OTHER, SELFPAY ==
[2025-04-13 11:19] VITALS: BP 96/60; BP 96/66; BMI 22.5
--- NOTE | 2025-07-07 11:15 | A.OFFVIS_ITS ---
Vital Signs 07/07/25 11:17 Height 4 ft 10 in Weight 97 lb BMI 20.3 BP 104/73 Blood Pressure Location Rt brachial Position Sitting Respiration 16 Pulse 119 H Pulse Source Pulse Oximeter Pulse Oximetry (%) 96 Oxygen Delivery Method Room Air Intake Visit Reasons: HIP AND GROIN PAIN Laundry Superintendent Required: No Accompanied by: Self / Same As Patient Allergies methylprednisolone Allergy (Severe, Verified 06/25/25 10:44) Rash from Solu-Medrol shellfish derived Allergy (Intermediate, Verified 06/25/25 10:44) Hives etanercept (From Enbrel) Adverse Reaction (Severe, Verified 06/25/25 10:44) Facial Swelling metformin Adverse Reaction (Severe, Verified 06/25/25 10:44) Diarrhea metronidazole (From FLAGYL) Adverse Reaction (Severe, Verified 06/25/25 10:44) Diarrhea prednisone Adverse Reaction (Intermediate, Verified 06/25/25 10:44) hallucinations, more than 20 mg doses HPI Comments Details: The patient is a 65-year-old female presenting with right hip pain. The pain started approximately three weeks ago and is described as severe, affecting her ability to walk, sit, and stand. The pain originates in the hip, radiates to the groin, and extends down the anterior thigh, but does not cross the knee. The patient reports that the pain is not consistently worsened by hip rotation, suggesting a complex pain pattern. She has tried lidocaine patches and is currently taking tramadol and Lyrica, but these have not provided significant relief. The patient also reports left wrist pain, which she associates with a recent twisting incident while reaching for her phone. An x-ray of the wrist has been ordered to further evaluate this issue. - Onset: Approximately three weeks ago - Quality: Severe pain affecting mobility - Location: Originates in the hip, radiates to the groin, extends down the thigh, does not cross the knee - Exacerbating factors: Not consistently worsened by hip rotation - Relieving factors: Lidocaine patches, tramadol, and Lyrica have been tried without significant relief - Affect: Pain significantly impacts mobility and daily activities - Analgesia: Currently using tramadol and Lyrica, with limited effectiveness - Adverse Effects: No specific adverse effects reported - Activities of Daily Living: Pain affects walking, sitting, and standing - Aberrant Drug Related Behaviors: None reported [facility] Medical History CAD (coronary artery disease) NSTEMI (non-ST elevated myocardial infarction) GERD (gastroesophageal reflux disease) Diverticulitis large intestine snf (current) use 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 Acute respiratory distress Tendonitis of ankle or foot Cough Stable angina Anxiety HLD (hyperlipidemia) HTN (hypertension) COPD exacerbation Hyperkalemia Atherosclerotic cardiovascular disease Hospital discharge follow-up Colitis CVA (cerebral vascular accident) (~2018) Breast pain, right Rash Bloody diarrhea PAD (peripheral artery disease) Hyperlipidemia LDL goal <100 COPD (chronic obstructive pulmonary disease) Infiltrating ductal carcinoma of left breast, stage 2 Insomnia Dyslipidemia Bipolar 1 disorder, depressed Cough Restrictive airway disease Hypothyroid IDDM (insulin dependent diabetes mellitus) Vitamin D deficiency Osteoporosis Breast cancer Hyperparathyroidism Thyroid nodule T2DM (type 2 diabetes mellitus) Depression Fibromyalgia Seropositive rheumatoid arthritis Reactive airways dysfunction syndrome Allergic rhinitis Irritable bowel Anxiety Bronchial asthma Diabetes type 2, uncontrolled Surgical History S/P laparoscopic colectomy (04/15/24) Hx of sigmoidoscopy History of bronchoscopy Hx of endoscopy H/O cardiac catheterization History of lumpectomy of left breast History of pubovaginal sling History of esophagogastroduodenoscopy (EGD) History of tubal ligation History of colonoscopy History of bunionectomy of both great toes H/O: hysterectomy Family History Mother Diabetes HTN (hypertension) Uterus cancer Malignant tumor of head Breast cancer Father Diabetes HTN (hypertension) CVD (cardiovascular disease) Heart problem Maternal Aunt Breast cancer Brother Myocardial infarction S/P CABG x 4 Family/Other FH: mental illness Family/Other Lung cancer Other Mental health disorder Social History Household Members: Family Household Members Other:: sister Housing: House Are you a primary family day carer to a significant other at home: No Do you presently have visiting nurse or other home services: No Unable to assess alcohol history related to: Unknown Alcohol intake: never Comment: Low fall Patient Tobacco Use Status: Current everyday Tobacco user Tobacco use type: Cigarette Cigarette Packs Per Day: 0.5 Years Smoked: 48 e-Cigarette/Vaping Use: Never Used Second Hand Smoke Exposure: No Substance Use Type: Marijuana Advance Directives Date on File: 12/22/21 service: No Current occupational status: disabled Current occupation: rt handed Cognitive needs: No Hearing needs: No Vision needs: Yes Review of Systems Const Details: - Musculoskeletal: Reports severe hip pain radiating to the groin and thigh, wrist pain - Neurological: Denies pain crossing the knee Physical Exam Exam Exam: General: awake, alert, oriented. Answers questions appropriately. Fully engaged in examination. Skin: warm, dry, intact HEENT: Normocephalic. Hearing intact. Cardiac: External chest normal in appearance. Respiratory: No cough, audible wheezing or stridor. Abdomen: without gross distension. MS: No obvious swelling or deformities. Tenderness along iliac crest on the right. Minimally tender over right PSIS. S light increase in pain with internal/external rotation of the right hip. Thigh thrust negative. Nontender over midline lumbar vertebrae and lumbar paraspinal muscles Neurological: Oriented to person, place, time and situation. Thought process intact. No gait abnormalities appreciated. Psychiatric: Appropriate mood and affect. Good judgment and insight. Vital Signs: Last Vital Signs Pulse 119 H 07/07/25 11:17 Resp 16 07/07/25 11:17 BP 104/73 07/07/25 11:17 Pulse Ox 96 07/07/25 11:17 Oxygen Delivery Method Room Air 07/07/25 11:17 BMI result Body Mass Index 20.3 Results Reviewed Results Reviewed: XR C spine 12/16/2024 Findings: Normal alignment. No acute fractures or dislocation. Multilevel disc space narrowing and endplate osteophyte formation, as well as facet hypertrophy. No prevertebral soft tissue swelling. XR T spine 12/16/2024 Findings: Normal vertebral body alignment. Multilevel disc space narrowing and endplate osteophyte formation, as well as facet hypertrophy. No significant degenerative change. XR L Spine 12/16/2024 Findings: Normal alignment. No acute fractures or dislocation. Multilevel disc space narrowing and endplate osteophyte formation, as well as facet hypertrophy. Assessment & Plan Assessment & Plan (1) Left wrist pain: Code(s): M25.532 - Pain in left wrist Category: Medical (2) Right hip pain: Code(s): M25.551 - Pain in right hip Category: Medical Plan The plan includes ordering an x-ray of the hip to further evaluate the source of pain and an x-ray of the wrist due to the recent twisting incident. Physical therapy has been ordered for the right hip pain. If physical therapy does not provide relief, an injection may be considered. The patient is encouraged to follow up with orthopedics if there is no improvement in her wrist pain. The patient is advised to continue using tramadol and Lyrica, along with Tylenol for pain management, while avoiding ibuprofen due to blood thinners. Rest, ice, and heat application are recommended, along with gentle stretching exercises to alleviate symptoms. Patient was informed and verbally consented to the use of an ambient scribe for clinic note documentation during this visit. Orders: Orders XR hip RT min 2V Today M25.551 - Pain in right hip XR wrist LT min 3V Today M25.532 - Pain in left wrist PT Evaluation and Treatment Today M25.551 - Pain in right hip Patient Instructions: - Schedule x-rays for hip and wrist as ordered. - Begin physical therapy as soon as possible. - Follow up with orthopedics if no improvement is noted. - Continue taking tramadol, Lyrica, and Tylenol for pain management. - Avoid ibuprofen due to blood thinners. - Apply rest, ice, and heat to affected areas, and perform gentle stretching exercises. Coding Level of Care Code Est Pt Level 4 (73883) Complex EM visit Add On G2211 Diagnoses Left wrist pain M25.532 Right hip pain M25.551
[2025-07-07 11:17] VITALS: BP 104/73; PULSE 119; RESP 16; O2SAT 96; BMI 20.3
--- OUTSIDE RECORDS SUMMARY | 2025-07-07 12:37 | XMS_ITS | Clinical Summary ---
Author Organization [facility] [employer] [facility] Address [address] [address] Phone Care Team Providers Care Geophysical Data Technician Name Role Phone Adela Wasserman MD Primary Care Provider [phone] Social History Tobacco Use Types Packs/Day Years [...] patient's age to complete this topic Insurance [facility] MEDICARE Member Subscriber Plan / Payer (Ef fective 2023-Present) Name:Sosa Joiner Relation to Subscriber:Self Name:Sosa Joiner Payer ID:[id number] Group ID:[id number] Type:Not on file Address: [place] [address] [place] [id number] Care Teams Geophysical Data Technician Relationship Specialty Start Date End Date Adela Wasserman MD [address] [place] [address] , [address] [facility] D/B/A: [facility] [place], [place] PCP - General Internal Medicine 12/08/24
--- OUTSIDE RECORDS SUMMARY | 2025-07-07 12:37 | XMS_ITS | Clinical Summary ---
Author Organization [facility] Address [address] [address] Phone Care Team Providers Care Manager Legal Name Role Phone Unavailable Primary Care Provider [...] It is not the complete legal health record.[facility]
--- OUTSIDE RECORDS SUMMARY | 2025-07-07 12:37 | XMS_ITS | Clinical Summary ---
Author Organization [facility] Address [address] [place] [address] Phone Care Team Providers Care Server Assistant Name Role Phone Adela Gipson MD Primary Care Provider [phone] Allergies Active Allergy Reactions Criticality Noted Date [...] Most Recently Relevant to Health Maintenance [place] [address] Care Teams Server Assistant Relationship Specialty Start Date End Date Adela Gipson MD [address] [place] [address] PCP - General Internal Medicine 05/28/22
== END 2025-07-07 11:40 | disposition home or self-care (01) ==
LOC: HO.PMC 11:14
PROVIDERS: PCP Internal Medicine; Visit Provider Registered Nurse Emergency
DX: M25.532 Pain in left wrist (principal); M25.551 Pain in right hip
CPT/HCPCS: 99214; G2211

== ENCOUNTER → 2025-07-07 11:13 | Outpatient (BNVA) | payer OTHER, SELFPAY ==
[2025-04-13 11:19] VITALS: BP 96/60; BP 96/66; BMI 22.5
== END ==
PROVIDERS: PCP Internal Medicine; Visit Provider Registered Nurse Emergency
DX: M25.551 Pain in right hip (principal); M25.532 Pain in left wrist
CPT/HCPCS: 99212

== ENCOUNTER 2025-07-08 09:50 | Outpatient (REF) | payer OTHER, SELFPAY ==
[2025-04-13 11:19] VITALS: BP 96/60; BP 96/66; BMI 22.5
--- NOTE | ~2025-07-08 | XR_ITS ---
EXAMINATION: XR HIP, RIGHT CLINICAL INFORMATION: M25.551 - Pain in right hip COMPARISON: None available. TECHNIQUE: AP and frog-leg lateral views of the right hip. FINDINGS: Right hip joint space is congruent and preserved. Small marginal osteophyte is noted at the acetabular roof. Surgical changes are present in the central pelvis with metallic clips likely from a bowel anastomosis. XR/XR hip RT min 2V IMPRESSION: Minimal osteophyte formation along the acetabular roof with preservation of the right hip joint space Electronically signed by: Checo Jett MD 07/08/2025 10:29 AM EDT
--- NOTE | ~2025-07-08 | XR_ITS ---
EXAMINATION: XR WRIST, LEFT CLINICAL INFORMATION: M25.532 - Pain in left wrist COMPARISON: None available. TECHNIQUE: PA, lateral, oblique, and scaphoid views of the left wrist. FINDINGS: There is osteopenia. No fracture is identified. Ulnar variance is neutral. There is no joint diastases. No fracture line is evident. XR/XR wrist LT min 3V IMPRESSION: Osteopenia Unremarkable left wrist. Electronically signed by: Checo Jett MD 07/08/2025 10:30 AM EDT
--- OUTSIDE RECORDS SUMMARY | 2025-07-08 11:12 | XMS_ITS | Clinical Summary ---
Author Organization [facility] Address [address] [place] [address] Phone Care Team Providers Care Process Control Board Operator Name Role Phone Adela Gipson MD Primary Care Provider [phone] Allergies Active Allergy Reactions Criticality Noted Date [...] Most Recently Relevant to Health Maintenance [place] [address] Care Teams Process Control Board Operator Relationship Specialty Start Date End Date Adela Gipson MD [address] [place] [address] PCP - General Internal Medicine 05/28/22
--- OUTSIDE RECORDS SUMMARY | 2025-07-08 11:12 | XMS_ITS | Clinical Summary ---
Author Organization [facility] Address [address] [address] Phone Care Team Providers Care Workers Compensation Claims Examiner Name Role Phone Unavailable Primary Care Provider [...] It is not the complete legal health record.[facility]
--- OUTSIDE RECORDS SUMMARY | 2025-07-08 11:12 | XMS_ITS | Clinical Summary ---
Author Organization [facility] [employer] [facility] Address [address] [place] [address] Phone Care Team Providers Care Airline Managerial Supervisor Name Role Phone Adela Wasserman MD Primary Care Provider [phone] Social History Tobacco Use Types Packs/Day Years [...] patient's age to complete this topic Insurance [facility] MEDICARE Member Subscriber Plan / Payer (Ef fective 2023-Present) Name:Sosa Joiner Relation to Subscriber:Self Name:Sosa Joiner Payer ID:[id number] Group ID:[id number] Type:Not on file Address: [place] [address] [place] [id number] Care Teams Airline Managerial Supervisor Relationship Specialty Start Date End Date Adela Wasserman MD [address] [place] [address] , [address] [facility] D/B/A: [facility] [place], [place] PCP - General Internal Medicine 12/08/24
== END 2025-07-08 09:51 | disposition home or self-care (01) ==
LOC: HO.XRAY 09:50
PROVIDERS: PCP Internal Medicine; Visit Provider Registered Nurse Emergency
DX: M25.551 Pain in right hip (principal); M25.532 Pain in left wrist
CPT/HCPCS: 73110; 73502

== ENCOUNTER → 2025-07-08 09:58 | Outpatient (BNV) | payer OTHER, SELFPAY ==
[2025-04-13 11:19] VITALS: BP 96/60; BP 96/66; BMI 22.5
== END ==
PROVIDERS: PCP Internal Medicine; Visit Provider Radiology Diagnostic Radiology
DX: M25.751 Osteophyte, right hip (principal); M85.842 Other specified disorders of bone density and structure, left hand
CPT/HCPCS: 73110; 73502

== ENCOUNTER 2025-07-16 10:28 | Outpatient (AMB) | payer OTHER, SELFPAY ==
[2025-04-13 11:19] VITALS: BP 96/60; BP 96/66; BMI 22.5
--- NOTE | 2025-07-16 10:39 | AM.OFFVISNUR ---
Intake Visit Reasons: h pylori after treatment Intake Note: Patient presents for collection of?H Pylori?breath test. Patient has been fasting for 1 hour (nothing to eat, drink, no chewing gum or smoking) has not taken any antacid medication for at least 2 weeks and has no allergies to artificial sweeteners.?? Allergies methylprednisolone Allergy (Severe, Verified 06/25/25 10:44) Rash from Solu-Medrol shellfish derived Allergy (Intermediate, Verified 06/25/25 10:44) Hives etanercept (From Enbrel) Adverse Reaction (Severe, Verified 06/25/25 10:44) Facial Swelling metformin Adverse Reaction (Severe, Verified 06/25/25 10:44) Diarrhea metronidazole (From FLAGYL) Adverse Reaction (Severe, Verified 06/25/25 10:44) Diarrhea prednisone Adverse Reaction (Intermediate, Verified 06/25/25 10:44) hallucinations, more than 20 mg doses Assessment & Plan Assessment & Plan (1) Helicobacter pylori infection: Code(s): A04.8 - Other specified bacterial intestinal infections Category: Medical Plan Patient presents for collection of?H Pylori?breath test. Patient has been fasting for 1 hour (nothing to eat, drink, no chewing gum or smoking) has not taken any antacid medication for at least 2 weeks and has no allergies to artificial sweeteners.???This test checks for an overgrowth of bacteria in your stomach. We all have bacteria but some may have more than others. It is treatable. if the test comes back negative there is nothing else to do. If the test result is positive we will treat you with 2 antibiotics and a medication to decrease the acid in your stomach (PPI) for 2 weeks. Two weeks after you have completed the treatment we will retest you to make sure the overgrowth has resolved. Orders: Orders H Pylori Breath Test Today Patient Instructions: Process for specimen collection and reason for testing was explained to the patient. Specimen collection. Patient instructed to take a deep breath and then exhale into the blue bag, filling it up as much as possible. Patient instructed to drink a mixture of water and the artificial sweetener with a straw. A 15 minute wait period was observed. Patient instructed to take a deep breath and then exhale into the pink bag, filling it up as much as possible.?? Coding Level of Care Code Established Pt Est Pt Level 1 (86340) Patient Type Established Medical Decision Making Straight Forward Diagnoses Helicobacter pylori infection A04.8
--- OUTSIDE RECORDS SUMMARY | 2025-07-16 11:09 | XMS_ITS | Clinical Summary ---
Author Organization [facility] Address [address] [place] [address] Phone Care Team Providers Care Air Conditioner Installer Helper Name Role Phone Adela Gipson MD Primary Care Provider [phone] Allergies Active Allergy Reactions Criticality Noted Date [...] Most Recently Relevant to Health Maintenance [place] [address] Care Teams Air Conditioner Installer Helper Relationship Specialty Start Date End Date Adela Gipson MD [address] [place] [address] PCP - General Internal Medicine 05/28/22
--- OUTSIDE RECORDS SUMMARY | 2025-07-16 11:09 | XMS_ITS | Clinical Summary ---
Author Organization [facility] Address [address] [address] Phone Care Team Providers Care Digester Operator Name Role Phone Unavailable Primary Care Provider [...] B [place] & B Member Subscriber Plan / Payer (Ef fective 2006-Present) Name:Sosa Joiner Member ID:[id number] Relation to Subscriber:Self Name:Sosa Joiner Subscriber ID:[id number] Payer ID:[id number] Group ID:Not on file Type:Medicare Address: [place] [address] [place] [address] [place] B Additional Source Comments The information contained in this document represents components of the legal health record. It is not the complete legal health record.[facility]
--- OUTSIDE RECORDS SUMMARY | 2025-07-16 11:09 | XMS_ITS | Clinical Summary ---
Author Organization [facility] [employer] [facility] Address [address] [place] [address] Phone Care Team Providers Care Dairy Grazer Name Role Phone Adela Wasserman MD Primary [...] age to complete this topic Insurance [facility] MEDICARE Member Subscriber Plan / Payer (Ef fective 2023-Present) Name:Sosa Joiner Relation to Subscriber:Self Name:Sosa Joiner Payer ID:[id number] Group ID:[id number] Type:Not on file Address: [place] [address] [place] [phone] Care Teams Dairy Grazer Relationship Specialty Start Date End Date Adela Wasserman MD [address] [place] [address] , [address] [facility] D/B/A: [facility] [place], [place] PCP - General Internal Medicine 12/08/24
== END 2025-07-16 10:40 | disposition home or self-care (01) ==
LOC: HO.HGI 10:28
PROVIDERS: PCP Internal Medicine; Visit Provider Internal Medicine Gastroenterology
DX: A04.8 Other specified bacterial intestinal infections (principal)

== ENCOUNTER → 2025-07-16 10:28 | Outpatient (BNVA) | payer OTHER, SELFPAY ==
[2025-04-13 11:19] VITALS: BP 96/60; BP 96/66; BMI 22.5
== END ==
PROVIDERS: PCP Internal Medicine; Visit Provider Internal Medicine Gastroenterology
DX: A04.8 Other specified bacterial intestinal infections (principal)
CPT/HCPCS: 99211

== ENCOUNTER 2025-07-16 11:57 | Outpatient (REF) | payer OTHER, SELFPAY ==
[2025-04-13 11:19] VITALS: BP 96/60; BP 96/66; BMI 22.5
== END 2025-07-16 11:58 | disposition home or self-care (01) ==
LOC: HO.LNP 11:57
PROVIDERS: Visit Provider Internal Medicine Gastroenterology
DX: Z11.0 Encounter for screening for intestinal infectious diseases (principal)
CPT/HCPCS: 83013

== ENCOUNTER 2025-07-29 13:42 | Outpatient (AMB) | payer OTHER, SELFPAY ==
[2025-04-13 11:19] VITALS: BP 96/60; BP 96/66; BMI 22.5
--- NOTE | 2025-07-29 13:58 | MHC.OFFVIS ---
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 Cementer: Cementer Present (Kristin) Accompanied by: Self / Same As Patient Allergies methylprednisolone Allergy (Severe, Verified 07/29/25 14:09) Rash from Solu-Medrol shellfish derived Allergy (Intermediate, Verified 07/29/25 14:09) Hives etanercept (From Enbrel) Adverse Reaction (Severe, Verified 07/29/25 14:09) Facial Swelling metformin Adverse Reaction (Severe, Verified 07/29/25 14:09) Diarrhea metronidazole (From FLAGYL) Adverse Reaction (Severe, Verified 07/29/25 14:09) Diarrhea prednisone Adverse Reaction (Intermediate, Verified 07/29/25 14:09) hallucinations, more than 20 mg doses HPI Comments Details: Presenting for annual exam. Complaining of vulvar itching Last Pap was negative in 10/03 Last Mammogram was BI-RADS 2 in 12/12 Last Colonoscopy was in 12/11 Last DEXA scan was in 06/11 [facility] Medical History CAD (coronary artery disease) NSTEMI (non-ST elevated myocardial infarction) GERD (gastroesophageal reflux disease) Diverticulitis large intestine correction (current) use 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 Acute respiratory distress Tendonitis of ankle or foot Cough Stable angina Anxiety HLD (hyperlipidemia) HTN (hypertension) COPD exacerbation Hyperkalemia Atherosclerotic cardiovascular disease Hospital discharge follow-up Colitis CVA (cerebral vascular accident) (~2017) Breast pain, right Rash Bloody diarrhea PAD (peripheral artery disease) Hyperlipidemia LDL goal <100 COPD (chronic obstructive pulmonary disease) Infiltrating ductal carcinoma of left breast, stage 2 Insomnia Dyslipidemia Bipolar 1 disorder, depressed Cough Restrictive airway disease Hypothyroid IDDM (insulin dependent diabetes mellitus) Vitamin D deficiency Osteoporosis Breast cancer Hyperparathyroidism Thyroid nodule T2DM (type 2 diabetes mellitus) Depression Fibromyalgia Seropositive rheumatoid arthritis Reactive airways dysfunction syndrome Allergic rhinitis Irritable bowel Anxiety Bronchial asthma Diabetes type 2, uncontrolled Surgical History S/P laparoscopic colectomy (04/15/24) Hx of sigmoidoscopy History of bronchoscopy Hx of endoscopy H/O cardiac catheterization History of lumpectomy of left breast History of pubovaginal sling History of esophagogastroduodenoscopy (EGD) History of tubal ligation History of colonoscopy History of bunionectomy of both great toes H/O: hysterectomy Family History Mother Diabetes HTN (hypertension) Uterus cancer Malignant tumor of head Breast cancer Father Diabetes HTN (hypertension) CVD (cardiovascular disease) Heart problem Maternal Aunt Breast cancer Brother Myocardial infarction S/P CABG x 4 Family/Other FH: mental illness Family/Other Lung cancer Other Mental health disorder Social History Household Members: Family Household Members Other:: sister Housing: House Are you a primary transitions rn care coordinator to a significant other at home: No Do you presently have visiting nurse or other home services: No Unable to assess alcohol history related to: Unknown Alcohol intake: never Comment: Low fall Patient Tobacco Use Status: Current everyday Tobacco user Tobacco use type: Cigarette Cigarette Packs Per Day: 0.5 Years Smoked: 48 e-Cigarette/Vaping Use: Never Used Second Hand Smoke Exposure: No Substance Use Type: Marijuana Advance Directives Date on File: 12/22/21 service: No Current occupational status: disabled Current occupation: rt handed Cognitive needs: No Hearing needs: No Vision needs: Yes Female Reproductive History Menstrual control method: permanent sterilization Total pregnancies: 2 Full term: 2 Date of Mammogram: 11/25/24 (bi rad 2) Date of last Bone Density Screenin06/01/25 Review of Systems Const All systems reviewed & are unremarkable except as noted in HPI and below Card Reports as per HPI and Reports no additional complaints Resp Reports as per HPI and Reports no additional complaints GI Reports as per HPI and Reports no additional complaints Reports as per HPI Physical Exam Const General: cooperative, healthy appearing and comfortable General: Yes bladder normal to palpation External Female Exam: No normal external appearance (Left labia minora 0.5 cm cut) and No lesion Speculum Exam - Vagina: normal appearance of the vagina, normal vaginal discharge and not erythematous Speculum Exam - Cervix: Cervix absent Bimanual exam- vagina & uterus: bladder normal to palpation and uterus absent Bimanual Exam- Adnexa, other: Other (No masses detected) Assessment & Plan Assessment & Plan (1) Well woman exam: Code(s): Z01.419 - Encounter for gynecological examination (general) (routine) without abnormal findings Category: Medical Plan: Pap smear not indicated, the patient is status post hysterectomy with no history of abnormal Pap smears Instructions given the patient to schedule next screening Mammogram in 12/13. Counseled the patient about the recommended dietary allowance of 1000 mg of Calcium & 600 IU of vitamin D. The patient was instructed to perform monthly self-breast exams and to schedule an annual exam in a year; All questions answered and the patient verbalized understanding. Instructed the patient to schedule annual exam in a year (2) Abrasion of skin of vulva: Code(s): S30.814A - Abrasion of vagina and vulva, initial encounter Category: Medical Plan: Discussed with the patient the finding on pelvic exam left labia minora abrasion mildly bleeding, recommended reinspection within 2 weeks if ulcer/abrasion persistent will consider biopsy to rule out LONNY. All questions answered, the patient verbalized understanding. Instructions given the patient to schedule a 2 week follow-up appointment. Coding Level of Care Code New Pt Prev Care 40-64y(31578) Diagnoses Well woman exam Z01.419 Abrasion of skin of vulva S30.814A
[2025-07-29 14:10] VITALS: BP 90/62; BMI 20.3
--- OUTSIDE RECORDS SUMMARY | 2025-07-29 17:31 | XMS_ITS | Clinical Summary ---
Author Organization [facility] Address [address] [address] Phone Care Team Providers Care Faucets Assembler Name Role Phone Unavailable Primary Care Provider [...] It is not the complete legal health record.[facility]
--- OUTSIDE RECORDS SUMMARY | 2025-07-29 17:32 | XMS_ITS | Clinical Summary ---
Author Organization [facility] Address [address] [place] [address] Phone Care Team Providers Care Accounts Receivable Collector Name Role Phone Adela Gipson MD Primary [...] Most Recently Relevant to Health Maintenance [place] [address] Care Teams Accounts Receivable Collector Relationship Specialty Start Date End Date Adela Gipson MD [address] [place] [address] PCP - General Internal Medicine 05/28/22
== END 2025-07-29 14:37 | disposition home or self-care (01) ==
LOC: HO.HWS 13:42
PROVIDERS: PCP Internal Medicine; Visit Provider Obstetrics & Gynecology
DX: Z01.419 Encounter for gynecological examination (general) (routine) without abnormal findings (principal); S30.814A Abrasion of vagina and vulva, initial encounter
CPT/HCPCS: 99386; 99459

== ENCOUNTER → 2025-07-29 13:42 | Outpatient (BNVA) | payer OTHER, SELFPAY ==
[2025-04-13 11:19] VITALS: BP 96/60; BP 96/66; BMI 22.5
== END ==
PROVIDERS: PCP Internal Medicine; Visit Provider Obstetrics & Gynecology
DX: Z01.419 Encounter for gynecological examination (general) (routine) without abnormal findings (principal); L29.2 Pruritus vulvae; S30.814A Abrasion of vagina and vulva, initial encounter; Y33.XXXA Other specified events, undetermined intent, initial encounter; Y93.9 Activity, unspecified; Y92.9 Unspecified place or not applicable; Y99.9 Unspecified external cause status
CPT/HCPCS: 99386

== ENCOUNTER 2025-08-06 09:27 | Outpatient (AMB) | payer OTHER, SELFPAY ==
[2025-08-05 16:00] VITALS: BP 96/60; BP 96/66; BMI 22.5
--- NOTE | 2025-08-06 09:36 | MHC.OFFVIS ---
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 Patient was referred by [facility] 06/25/25 at their visit she had a CT scan Done. At today's visit she states that for the past two months she has a sharp pain that radiates into the right hip and now the pain is going into her right thigh. Patient states that she is currently going to Pain Management and at their visit she had x ray done. No injury's or falls to report at this time. She states that she has tried and failed physical therapy but will not attend again. She added that she has not tried injections or at home exercises. Allergies methylprednisolone Allergy (Severe, Verified 08/06/25 09:43) Rash from Solu-Medrol shellfish derived Allergy (Intermediate, Verified 08/06/25 09:43) Hives etanercept (From Enbrel) Adverse Reaction (Severe, Verified 08/06/25 09:43) Facial Swelling metformin Adverse Reaction (Severe, Verified 08/06/25 09:43) Diarrhea metronidazole (From FLAGYL) Adverse Reaction (Severe, Verified 08/06/25 09:43) Diarrhea prednisone Adverse Reaction (Intermediate, Verified 08/06/25 09:43) hallucinations, more than 20 mg doses Medication List - Last Reconciled 08/06/25 by Hannah Ruffin MD albuterol sulfate 90 mcg/actuation 2 inhalations inhalation Q4H PRN aspirin 81 mg PO DAILY blood pressure monitor As directed blood pressure test kit-medium As directed blood sugar diagnostic (FreeStyle Lite Strips) Use 1 test strip three times a day oiubodktsh-khkfhjcijyzar-daos 50-325-40 mg 1 tab PO Q6H PRN [clamp on tub safety rail As directed] clopidogrel 75 mg PO DAILY cyclobenzaprine 10 mg PO TID PRN dulaglutide (Trulicity) 1.5 mg (0.5 mL) subcut TH@0900 [ez head pumper bed assist support As directed] famotidine 20 mg PO BEDTIME 90 days qirnrrcbbxb-zzckecnzq-zkejgkog 200-62.5-25 mcg (Trelegy Ellipta) 1 ea inhalation DAILY folic acid 1 mg PO DAILY hydroxychloroquine (Plaquenil) 200 mg PO DAILY lancets (FreeStyle Lancets) Use 1 lancet once a day levofloxacin 500 mg PO DAILY 14 days lidocaine 5% (Lidoderm) 1 patch topical DAILY linaclotide (Linzess) 145 mcg PO QAM 30 days lithium carbonate 150 mg PO BID melatonin 1 mg PO BEDTIME methotrexate sodium 17.5 mg (7 x 2.5 mg) PO QWEEK 90 days metoclopramide HCl (Reglan) 5 mg PO TID PRN 30 days metoprolol succinate ER 25 mg PO DAILY ondansetron 4 mg PO Q8H PRN ondansetron 4 mg PO Q8H PRN pantoprazole 40 mg PO DAILY pen needle, diabetic USE 1 PEN NEEDLE 6 TIMES A DAY pregabalin 200 mg PO BID Shower Chair As directed simethicone 125 mg PO DAILY PRN sucralfate 1 g PO TID tramadol 50 mg PO BID 30 days trazodone 100 mg PO BEDTIME 90 days walker with seat HPI Comments Details: Hx of breast cancer completed anastrozole, diabetes complicated by polyneuropathy, hypertension complicated by STEMI 10/2024 with stenting and peripheral arterial disease, hyperlipidemia, bipolar 1 disorder with depression, hyperparathyroidism, osteoporosis on Reclast infusions with Endo, seropositive rheumatoid arthritis and fibromyalgia. She follows with rheumatology and pain management. She is maintained on tramadol and Lyrica. She says this pain has only been 2-3 months ago, and that this pain is totally different from her usual back pain and RA pain. Points to right lateral posterior pelvis area, goes around the hip, groin and thigh but not further down. No numbness. Her last PT was years ago, not for this particular pain. No injection for this particular pain. [facility] Medical History CAD (coronary artery disease) NSTEMI (non-ST elevated myocardial infarction) GERD (gastroesophageal reflux disease) Diverticulitis large intestine FPC (current) use 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 Acute respiratory distress Tendonitis of ankle or foot Cough Stable angina Anxiety HLD (hyperlipidemia) HTN (hypertension) COPD exacerbation Hyperkalemia Atherosclerotic cardiovascular disease Hospital discharge follow-up Colitis CVA (cerebral vascular accident) (~2018) Breast pain, right Rash Bloody diarrhea PAD (peripheral artery disease) Hyperlipidemia LDL goal <100 COPD (chronic obstructive pulmonary disease) Infiltrating ductal carcinoma of left breast, stage 2 Insomnia Dyslipidemia Bipolar 1 disorder, depressed Cough Restrictive airway disease Hypothyroid IDDM (insulin dependent diabetes mellitus) Vitamin D deficiency Osteoporosis Breast cancer Hyperparathyroidism Thyroid nodule T2DM (type 2 diabetes mellitus) Depression Fibromyalgia Seropositive rheumatoid arthritis Reactive airways dysfunction syndrome Allergic rhinitis Irritable bowel Anxiety Bronchial asthma Diabetes type 2, uncontrolled Surgical History S/P laparoscopic colectomy (04/15/24) Hx of sigmoidoscopy History of bronchoscopy Hx of endoscopy H/O cardiac catheterization History of lumpectomy of left breast History of pubovaginal sling History of esophagogastroduodenoscopy (EGD) History of tubal ligation History of colonoscopy History of bunionectomy of both great toes H/O: hysterectomy Family History Mother Diabetes HTN (hypertension) Uterus cancer Malignant tumor of head Breast cancer Father Diabetes HTN (hypertension) CVD (cardiovascular disease) Heart problem Maternal Aunt Breast cancer Brother Myocardial infarction S/P CABG x 4 Family/Other FH: mental illness Family/Other Lung cancer Other Mental health disorder Social History Household Members: Family Household Members Other:: sister Housing: House Are you a primary home care liaison to a significant other at home: No Do you presently have visiting nurse or other home services: No Unable to assess alcohol history related to: Unknown Alcohol intake: never Comment: Low fall Patient Tobacco Use Status: Current everyday Tobacco user Tobacco use type: Cigarette Cigarette Packs Per Day: 0.5 Cigarettes Per Day: 3 Years Smoked: 48 e-Cigarette/Vaping Use: Never Used Second Hand Smoke Exposure: No Substance Use Type: Marijuana Advance Directives Date on File: 12/22/21 service: No Current occupational status: disabled Current occupation: rt handed Cognitive needs: No Hearing needs: No Vision needs: Yes Review of Systems Const All systems reviewed & are unremarkable except as noted in HPI and below Physical Exam Exam Exam: Constitutional: Patient appears to be in no acute distress, well nourished and well developed. Patient was appropriately conversant and oriented. Good historian. MSK: No specific abnormalities found on inspection of the spine and all extremities. No pain with palpation over the lumbar area. Tender on right greater trochanter and superior to that. No SI joint tenderness. Lumbar ROM was full. Bilateral hip, knee and ankle ROM WNL. No ligamentous laxity or crepitance. No increased effusion. Straight-leg raising test negative. FABERE test positive right lateral hip pain. Strength is 5/5 in all muscle groups tested. No increased tone noted. Neurological: Neurologic examination of the upper and lower extremities was nonfocal with intact sensation, muscle stretch reflexes and without focal motor deficits . Briggs?s negative bilaterally. Babinski was down going bilaterally. Clonus was negative. Gait is antalgic without loss of balance. Vital Signs: BMI result Body Mass Index 19.9 Office Procedures AMB Joint Injection/Aspiration Joint Injection/Aspiration Details: Consent obtained. Patient lies on left unaffected side with lower leg flexed and upper leg extended. Tender area over the right greater trochanter is identified and marked. Area is cleansed with betadine solution. Using a 27 gauge needle, 3 ml of 2% lidocaine is injected, with the needle perpendicular to center of tender area. Then, using a spinal needle, 40 mg Kenalog is injected perpendicularly at center of tender area and slightly touching bone of greater trochanter. Patient tolerated procedure well without complications. Post-injection instructions given. Because patient had hallucinations from taking oral prednisone past, patient was advised to watch out for any of these. Injected: 40 mg of, Kenalog and with 3 mL of (2% lidocaine) Coding 65543 - Large joint Procedure code (CPT) selection complete Office Meds Kenalog 40 mg/mL suspension for injection Performing Provider: Hannah Ruffin MD Performing Location: [facility] Documented (not given) by: Hannah Ruffin MD on 08/06/25 11:14 Dose Route Admin Location Dispensed Lot Number Expiration Date NDC Seafood Farmer 40 mg intrabursal mL Total Dispensed Waste n/a n/a Results Reviewed Results Reviewed: Ordering Physician: Rossi Weaver APRN, CNP Date of Service: 07/08/25 Procedure(s): XR hip RT min 2V Accession Number(s): [id number] cc: Rossi Weaver APRN, CNP; Adela Gipson MD~ EXAMINATION: XR HIP, RIGHT CLINICAL INFORMATION: M25.551 - Pain in right hip COMPARISON: None available. TECHNIQUE: AP and frog-leg lateral views of the right hip. FINDINGS: Right hip joint space is congruent and preserved. Small marginal osteophyte is noted at the acetabular roof. Surgical changes are present in the central pelvis with metallic clips likely from a bowel anastomosis. XR/XR hip RT min 2V IMPRESSION: Minimal osteophyte formation along the acetabular roof with preservation of the right hip joint space Electronically signed by: Checo Jett MD 07/08/2025 10:29 AM EDT RP I reviewed records from the following: Rheumatology PCP Pain management Assessment & Plan Assessment & Plan (1) Trochanteric bursitis, right hip: Code(s): M70.61 - Trochanteric bursitis, right hip Category: Medical (2) Seropositive rheumatoid arthritis: Comment: +++RF+++CCP dx around 1999 [place]: 04/2021- 06/2022- stopped due to severe COPD requiring long standing azithromycin Plaquenil: approx. 02/2021-May 2021 self stopped Enbrel: approx. 02/2021 ordered after cleared for hep A, stopped due to allergy Sulfasalazine: approx. 02/2019- 02/2021 - restarted 09/27/2022 -04/2023 stopped due to heaedache and nausea Methorexate: approx. 11/2016-12/2018 started in [facility]. Diagnosed with breast CA so methotrexate discontinued. Changed to sulfsalazine 500mg 2 tabs BID to prevent lung fibrosis as patient was receiving radiation therapy for her breast CA. Completed Radiation therapy February 2019. OnTamoxifen but had side effects so was started on Letrozole in May 2019. MTX restarted 02/2024 Xeljanz: approx. 03/2018-04/2018 Cimzia: aprrox.05/2017- did not take Humira: dates unknown Leflunomide: many years ago, then approx. 08/2020-02/2021 Code(s): M05.9 - Rheumatoid arthritis with rheumatoid factor, unspecified Category: Medical Plan Her tenderness was focal to the area of right greater trochanter. Possibly bursitis. Suggested injection patient was eager to proceed. She does have history of hallucinations with oral prednisone, patient advised. Patient tolerated procedure well. We will re-evaluate in 2 months. She also wants me to look at shoulder next time, possibly inject as well. Assessment and plan discussed with patient, and patient was agreeable. All questions were answered thoroughly. Hannah Ruffin MD, JUAN M Board Certified, [place] [employer] and Rehabilitation (ABPMR) Board Certified, [place] Board [employer] Electrodiagnostic Medicine (ABEM) Orders: Orders AMB Joint Injection/Aspiration Today M70.61 - Trochanteric bursitis, right hip Medications: New Kenalog (triamcinolone acetonide) 40 mg intrabursal ONCE 1 mL 0RF NS M70.61 - Trochanteric bursitis, right hip Coding Level of Care Code New Pt Level 4 (00517) Complex EM visit Add On G2211 Diagnoses Trochanteric bursitis, right hip M70.61 Seropositive rheumatoid arthritis M05.9 CPT Codes Coding - 65403 Large joint: 76084 - Large joint ([id number])
[2025-08-06 09:42] VITALS: BMI 19.9
--- OUTSIDE RECORDS SUMMARY | 2025-08-06 10:00 | XMS_ITS | Clinical Summary ---
Author Organization [facility] Address [address] [place] [address] Phone Care Team Providers Care Brake Rider Name Role Phone Adela Gipson MD Primary Care Provider [phone] Allergies Active Allergy Reactions Criticality Noted Date [...] Most Recently Relevant to Health Maintenance [place] [address] Care Teams Brake Rider Relationship Specialty Start Date End Date Adela Gipson MD [address] [place] [address] PCP - General Internal Medicine 05/28/22
--- OUTSIDE RECORDS SUMMARY | 2025-08-06 10:00 | XMS_ITS | Clinical Summary ---
Author Organization [facility] [employer] [facility] Address [address] [address] Phone Care Team Providers Care Inspector Packer Name Role Phone Adela Wasserman MD Primary Care Provider [phone] Social History Tobacco Use Types Packs/Day Years Used Date Smoking Tobacco: Never Assessed Comments Unknown Sex and Gender Information Value Date Recorded Sex Assigned at Not on file Legal Sex Female 10:47 PM EST Gender Identity Not on file Sexual Orientation Not on file Plan of Treatment Health Maintenance Due Date Last Done Comments Breast Cancer Screening 1962 Diabetes: Annual GFR (Glomer ular Filtration Rate) 1962 COVID-19 Vaccine (#1) 1967 Diabetes: Annual Foot Exam 1972 Diabetes: Annual Retina Eye Exam 1972 DTaP,Tdap,and Td Vaccines (1 - Tdap) 1981 Cervical Cancer Screening: P ap Smear 1983 Pneumococcal Vaccine: 50+ Ye ars (1 of 1 - PCV) 2012 Zoster Vaccines (1 of 2) 2012 RSV Immunization Adult Patie nts (1 - Risk 60-74 years 1-dose series) 2022 Cholesterol Screening (Lipid Panel) 10/21/2022 Colorectal Cancer Screening: Colonoscopy 10/21/2022 HIV Screening 10/21/2022 Hepatitis C Screening 10/21/2022 Medicare Annual Wellness Visit 10/21/2022 Social Influencers of Health Screening 10/21/2022 Depression Screening 11/18/2024 Hypertension/CHF/CAD Annual BMP Blood Test 12/13/2024 Diabetes: Annual Urine Albumin-Creatinine Ratio (uACR) 07/16/2025 01/02/2024 Diabetes: Blood Sugar Contro l Test (HGBA1C) 07/16/2025 Influenza Vaccine (#1) 2025 HIB Vaccines Aged Out No longer eligi [...] fective 2023-Present) Name:Rhys Sosa Relation to Subscriber:Self Name:RhysSosa Payer ID:[id number] Group ID:[id number] Type:Not on file Address: [place] [address] [address] [id number] Care Teams Inspector Packer Relationship Specialty Start Date End Date Adela Wasserman MD [address] [place] [address] , [address] [place] [address] Physician Associ D/B/A: [facility] PCP - General Internal Medicine 12/08/24
--- OUTSIDE RECORDS SUMMARY | 2025-08-06 10:00 | XMS_ITS | Clinical Summary ---
Author Organization [facility] Address [address] [address] Phone Care Team Providers Care Making Department Preparer Name Role Phone Unavailable Primary Care Provider [...] It is not the complete legal health record.[facility]
== END 2025-08-06 10:49 | disposition home or self-care (01) ==
LOC: HO.HOS 09:28
PROVIDERS: PCP Internal Medicine; Visit Provider Physical Medicine & Rehabilitation
DX: M70.61 Trochanteric bursitis, right hip (principal); M05.79 Rheumatoid arthritis with rheumatoid factor of multiple sites without organ or systems involvement
CPT/HCPCS: 20610; 99204

== ENCOUNTER → 2025-08-06 09:27 | Outpatient (BNVA) | payer OTHER, SELFPAY ==
[2025-08-05 16:00] VITALS: BP 96/60; BP 96/66; BMI 22.5
== END ==
PROVIDERS: PCP Internal Medicine; Visit Provider Physical Medicine & Rehabilitation
DX: M70.61 Trochanteric bursitis, right hip (principal); M05.9 Rheumatoid arthritis with rheumatoid factor, unspecified
CPT/HCPCS: 20610; 99202; J2003; J3301

== ENCOUNTER 2025-08-19 08:39 | Outpatient (AMB) | payer OTHER, SELFPAY ==
[2025-08-05 16:00] VITALS: BP 96/60; BP 96/66; BMI 22.5
--- NOTE | 2025-08-19 08:43 | A.OFFVIS_ITS ---
Vital Signs 08/19/25 08:44 Height 4 ft 10 in Weight 96 lb BMI 20.1 BP 105/72 Blood Pressure Location Lt brachial Position Sitting Pulse 80 Pulse Oximetry (%) 98 Oxygen Delivery Method Room Air Intake Visit Reasons: 3 mo f/u Intake Note: Patient follow up for Colitis Patient denies any GI issues. Recreation Program Coordinator Required: No Accompanied by: Self / Same As Patient Allergies methylprednisolone Allergy (Severe, Verified 08/19/25 08:42) Rash from Solu-Medrol shellfish derived Allergy (Intermediate, Verified 08/19/25 08:42) Hives etanercept (From Enbrel) Adverse Reaction (Severe, Verified 08/19/25 08:42) Facial Swelling metformin Adverse Reaction (Severe, Verified 08/19/25 08:42) Diarrhea metronidazole (From FLAGYL) Adverse Reaction (Severe, Verified 08/19/25 08:42) Diarrhea prednisone Adverse Reaction (Intermediate, Verified 08/19/25 08:42) hallucinations, more than 20 mg doses Medication List - Last Reconciled 08/19/25 by Ruth Roman MD albuterol sulfate 90 mcg/actuation 2 inhalations inhalation Q4H PRN aspirin 81 mg PO DAILY blood pressure monitor As directed blood pressure test kit-medium As directed blood sugar diagnostic (FreeStyle Lite Strips) Use 1 test strip three times a day vguwxzexhn-lkayupmlqrkde-nkrg 50-325-40 mg 1 tab PO Q6H PRN [clamp on tub safety rail As directed] clopidogrel 75 mg PO DAILY cyclobenzaprine 10 mg PO TID PRN [ez vice president network development bed assist support As directed] famotidine 20 mg PO BEDTIME 90 days nrbqmcorksp-vjrvibxuu-apulrnsf 200-62.5-25 mcg (Trelegy Ellipta) 1 ea inhalation DAILY folic acid 1 mg PO DAILY hydroxychloroquine (Plaquenil) 200 mg PO DAILY lancets (FreeStyle Lancets) Use 1 lancet once a day lidocaine 5% (Lidoderm) 1 patch topical DAILY linaclotide (Linzess) 145 mcg PO QAM 30 days lithium carbonate 150 mg PO BID melatonin 1 mg PO BEDTIME methotrexate sodium 17.5 mg (7 x 2.5 mg) PO QWEEK 90 days metoclopramide HCl (Reglan) 5 mg PO TID PRN 30 days metoprolol succinate ER 25 mg PO DAILY ondansetron 4 mg PO Q8H PRN ondansetron 4 mg PO Q8H PRN pantoprazole 40 mg PO DAILY pen needle, diabetic USE 1 PEN NEEDLE 6 TIMES A DAY pregabalin 200 mg PO BID Shower Chair As directed simethicone 125 mg PO DAILY PRN sucralfate 1 g PO TID tramadol 50 mg PO BID 30 days trazodone 100 mg PO BEDTIME 90 days walker with seat HPI HPI 3 mo f/u: Details: GI CLINIC VISIT FOR THIS 65-YEAR-OLD FEMALE FOR FU OF GERD AND DYSPHAGIA PT IS KNOWN TO ME FROM PAST GI VISITS FOR COLITIS SEEN ON CT SCAN AND FOR POSITIVE HEP A AB (IG M) 04/15/24 Pt had Hand assisted laparoscopic sigmoid colectomy with colorectal anastomosis by Dr Rodriguez HAD BRONCHOSCOPY ON 08/16? , FOUND TO HAVE GENERALIZED INFLAMMATION.? AND ENDOBRONCHIAL LESION IN THE RIGHT LOWER LOBE WAS SUSPECTED. BIOPSY AND CYTOLOGY IS CONSISTENT WITH MILD INFLAMMATORY CHANGES, NO METAPLASIA NEOPLASTIC CELLS. TODAY'S VISIT: I feel really good with my stomach H pylori breath test was negative Taking Linzess for constipation and able to have a BM daily to every other day Still has intermittent dysphagia to solids and liquids and has decreased appetite Food can get stuck in the throat area and ends up regurgitating the food - pt has cricopharyngeal achalasia. PAST VISITS: Complains of chronic constipation - has a BM twice a week. Has difficulty expelling stool which are hard Takes Senna three times a week - sometimes she forgets Follow up from ER for stabbing pain in stomach w/ eating or drinking. Patient cc: abdominal pain/bloating, diarrhea with food and some swallowing problems, Seen at [facility] on 11/16/24 - had sharp stabbing pains in the abdomen every time she eats or drinks anything. Pain started 2 weeks after she was admitted to [facility] 10/19/24 with an KS Pt had a burning and bad stabbing pain in the upper abdomen radiating to LUQ. Abd pain comes and goes every time she eats and drinks anything - gets nauseated Can have intermittent vomiting if the nausea is bad - smells and tastes like beer. Vomitus is light yellow with chunks of food Abdominal pain gets worse after the vomiting episode. Has had 3 episodes of diarrhea over the past 2 weeks. Having soft stools - had to go to the bathroom at night Stools have a lot of mucous and no blood. PAST VISITS: 08/04/24 H Pylori breath test was positive and pt was treated with I feel great since the surgery - have been eating a little more. Finished antibiotics last week - Tetracycline and Levo Resumed MTX - noted pain in her knees and big toe while she was off the MTX. Constipated last week - forgot to go to the bathroom. Started taking the Senna twice a day - finally able to go after 3 days. PAST VISITS: Noted nausea and decreased appetite with wt loss Ran out of Pantoprazole and forgot to refill it Having symptoms of regurgitation and heartburn and taking Famotidine. Stopped Lisinopril and feels a little better. Notes dizziness - states she has been drinking fluids - takes 1.5 litres of water daily. Has been constipated and has been taking Senna Took Senna plus and it helps intermittently Smokes 4 cigg/day and trying to cut back Unable to tolerate Chantix Pt states abdominal pain has resolved. Continues to have constipation - pt states its better Has a BM once a day with hard stools - planning to start taking Senna for constipation Unable to regain the wt she lost. Has been eating though not a lot. Taking Boost twice a day. Patient follow up from ED due bloody diarrhea. Patient cc: abdominal pain, nauseas, diarrhea, swallowing problems with sticky food and her saliva. I am in pain with nausea and diarrhea. Stomach really hurts Taking mesalamine 3 tablets daily Noted diarrhea since last night - 2 BMs last night and one this am. Had hard stools prior to that. Prescribed Trulance and was not covered by her insurance. Has a BM once a week when she is constipated. Started on MTX 15 mg once a week for RA by her Round Up Ring Hand I havent been feeling good since I left the hospital Generalized body aches, diarrhea and constipation. Has constipation for a week and then diarrhea for 2 days. Taking Amitiza daily for constipation. Seen by [facility] and was told she had stage 3 kidney disease Lab results reviewed - IBD serology suggestive of Crohn's disease Pt seen at [facility] on 05/16/23 with chest pain and dubois was negative. Pt is on sulfasalazine for RA which is on hold to see if nausea gets better. 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 Unable to take biologics for RA due to COPD. Tried Humira and had to be stopped due to facial swelling. Tried Embril and was stopped due to worsening COPD. She was told by her [employer] Up Ring Hand that she is unable to use biologics Wt loss from 140 in Dec, 2021 to 115 lbs since she is eating less. Hospitalized with NSTEMI in Dec, 2021 and had 2 stents. Taking aspirin and Brilinta twice a day Had an MRI on the brain and changes noted on the right and left side Waiting to see a Neurologist. Has COPD and asthma. Patient denies known family history of colon polyps or colon cancer IMAGING STUDIES:? 10/15/23 GASTRIC EMPTYING STUDY SHOWED: 1 hour 64% (normal 37%-90%) 2 hours 50% (normal 30%-60%) 3 hours 33% 4 hours 13% (normal 0%-10%) NM/NM gastric emptying study IMPRESSION: Abnormal grade 1 delayed 4 hour gastric emptying study. US WITH DUPLEX: Elevated velocity in the proximal superior mesenteric artery is nonspecific. By velocity criteria, this is consistent with hemodynamically significant stenosis. However, the distal waveforms are not indicative of significant upstream disease and there is no significant stenosis seen on CT from 02/01/2023. 10/2022 BARIUM SWALLOW SHOWED:Following oral administration of thick, thin barium and barium-coatedturkey in upright view, there is normal propagation of bolus from the oral cavity through the pharynx, esophagus into stomach without obstruction, narrowing or stricture. There is mild prominence of cricoesophageal sphincter indenting the upper esophagus. There is mild ventral spondylosis at the C5-C6 and C6-C7 disc levels with minimal indentation on the posterior cervical esophageal wall. However, there is no obstruction. On oral administration of barium tablet, there is transient holdup in the mid esophagus and slightly longer in the distal esophagus. 02/21/22 ABD US SHOWED: 1.? Increased hepatic echogenicity suggesting hepatic steatosis. 2.? Nonobstructive calculus in the right renal lower pole measuring 3 mm. 02/[address] SCAN SHOWED:A cause for the patient's diffuse abdominal pain has not been found.Incidental note made of: 1.? Hepatic steatosis. 2.? Small stable adrenal nodule, unchanged over many years 3.? Status post hysterectomy. 08/[address] SCAN SHOWED:Mild bowel wall thickening of the sigmoid colon which could be due to mild colitis. There is no surrounding pericolonic edema however. There is no bowel obstruction. ENDOSCOPIC STUDIES: 12/12/23 FLEX SIG SHOWED: Flexible sigmoidoscopy Findings: Friable appearing mucosa with patchy erythema in the left colon without ulcerations - random biopsies were obtained. cw resolving colitis No polyps were detected. Moderate diverticulosis seen in the left colon No blood seen in the left colon during sigmoidoscopy Plan: Above findings were reviewed with the patient. BIOPSIES SHOWED: Colon, left, biopsy: Colonic mucosa with lamina propria hemorrhage, partial surface epithelial loss, and scattered neutrophils consistent with active colitis (see comment). Comment: The differential includes infectious, early ischemia, drugs, diverticular disease, and early Crohn's. There is no evidence of chronic colitis, granulomas or dysplasia 05/2023 CAPSULE ENDOSCOPY SHOWED: Findings: Lower esophagus looked normal, stomach with granular mucosa and patchy erythema consistent with chronic gastritis small bowel entered at 2 hr 36 min min. Mucosa well visualized and appeared normal, no masses, lesions or ulcers seen. cecum entered at 4 hr 44 min and colonic mucosa looked normal Conclusion: chronic gastritis, other santiago neg small bowel study 06/15/22 EGD SHOWED:ESOPHAGUS: Tortuous esophagus with increased tertiary contractions without stricture or ring.?GE junction at 36 cms. No esophagitis or Austin's.STOMACH: Moderate diffuse gastric erythema - no ulcers were seen. Biopsies were obtained from gastric antrum and body. DUODENUM: Normal - biopsied to check for celiac sprue Plan:? Further evaluation with a Duplex US to rule out small bowel ischemia [place] of Dicyclomine prn while awaiting further workup. BIOPSIES SHOWED: A.? Small bowel, biopsy:? Small bowel mucosa with preserved villi and no specific change; no evidence of celiac disease. B.? Gastric antrum, biopsy:? Chronic Helicobacter gastritis with minimal activity and focal intestinal metaplasia; negative for dysplasia.? C.? Gastric body, biopsy:? Chronic Helicobacter gastritis with minimal activity; negative for intestinal metaplasia and dysplasia. 03/24/21 COLONOSCOPY SHOWED: No polyps were detected.Random biopsies were obtained from the right and left colon Moderate to severe diverticulosis seen in the entire colonOf note pt denies additional episodes of fecal incontinence. Plan:? Patient has an appointment on 04/20/21 in the GI Clinic with Ruth Roman M.D. Repeat Colonoscopy in 10 years if biopsies are normal. A handout on diverticulosis was were given in the discharge area BIOPSIES SHOWED: A.? Colon, right, biopsy:? Colonic mucosa within normal limits. B.? Colon, left, biopsy:? Colonic mucosa within normal limits. COMMENT: Diagnostic features of microscopic colitis are not seen. 08/2019:? Colonoscopy Findings:Edema, erythema with friable appearing mucosa and scattered ulcerations from 10to 30 cms - random biopsies obtained. Colon inflammation can be due to ischemiccolitis or stercoral ulcers related to constipation and irritation of the colon from hard stools. No polyps were detected Moderate to severe diverticulosis seen in the left colon. Plan: Await pathology results. Regular diet today. Start Miralax once daily for constipation. Continue IV antibiotics x 24 hours and then switch to PO antibiotics in the am for another 3 days. Patient to be scheduled for a FU appointment in the GI Clinic with Ruth Roman M.D. in 1-2 weeks. Above findings were reviewed with the patient. BIOPSIES SHOWED: Colon, left, biopsies: Colonic mucosa with focal superficial epithelial s loughing, hemorrhage and hyalinization possibly representing early ischemic colitis;? 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) use 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 Acute respiratory distress Tendonitis of ankle or foot Cough Stable angina Anxiety HLD (hyperlipidemia) HTN (hypertension) COPD exacerbation Hyperkalemia Atherosclerotic cardiovascular disease Hospital discharge follow-up Colitis CVA (cerebral vascular accident) (~2018) Breast pain, right Rash Bloody diarrhea PAD (peripheral artery disease) Hyperlipidemia LDL goal <100 COPD (chronic obstructive pulmonary disease) Infiltrating ductal carcinoma of left breast, stage 2 Insomnia Dyslipidemia Bipolar 1 disorder, depressed Cough Restrictive airway disease Hypothyroid IDDM (insulin dependent diabetes mellitus) Vitamin D deficiency Osteoporosis Breast cancer Hyperparathyroidism Thyroid nodule T2DM (type 2 diabetes mellitus) Depression Fibromyalgia Seropositive rheumatoid arthritis Reactive airways dysfunction syndrome Allergic rhinitis Irritable bowel Anxiety Bronchial asthma Diabetes type 2, uncontrolled Surgical History S/P laparoscopic colectomy (04/15/24) Hx of sigmoidoscopy History of bronchoscopy Hx of endoscopy H/O cardiac catheterization History of lumpectomy of left breast History of pubovaginal sling History of esophagogastroduodenoscopy (EGD) History of tubal ligation History of colonoscopy History of bunionectomy of both great toes H/O: hysterectomy Family History Mother Diabetes HTN (hypertension) Uterus cancer Malignant tumor of head Breast cancer Father Diabetes HTN (hypertension) CVD (cardiovascular disease) Heart problem Maternal Aunt Breast cancer Brother Myocardial infarction S/P CABG x 4 Family/Other FH: mental illness Family/Other Lung cancer Other Mental health disorder Social History Household Members: Family Household Members Other:: sister Housing: House Are you a primary care support representative to a significant other at home: No Do you presently have visiting nurse or other home services: No Alcohol intake: never Comment: Low fall Patient Tobacco Use Status: Current everyday Tobacco user Tobacco use type: Cigarette Cigarette Packs Per Day: 0.5 Cigarettes Per Day: 3 Years Smoked: 48 e-Cigarette/Vaping Use: Never Used Second Hand Smoke Exposure: No Substance Use Type: Marijuana Advance Directives Date on File: 12/22/21 service: No Current occupational status: disabled Current occupation: rt handed Cognitive needs: No Hearing needs: No Vision needs: Yes Review of Systems Const All systems reviewed & are unremarkable except as noted in HPI and below Physical Exam Vital Signs: Last Vital Signs Pulse 80 08/19/25 08:44 BP 105/72 08/19/25 08:44 Pulse Ox 98 08/19/25 08:44 Oxygen Delivery Method Room Air 08/19/25 08:44 BMI result Body Mass Index 20.1 Const General: healthy appearing and no acute distress Nutritional Appearance: average body habitus Orientation/consciousness: patient oriented x3 Limitations: no limitations HEENT Head: Yes normal to inspection Ears: hearing grossly normal bilaterally Mouth: Normal oral and palatal mucosa present Eyes Sclerae: sclerae normal Pupils: Equal, round and reactive pupils present Neck Neck: Yes normal visual inspection Chest Chest palpation & inspection: normal inspection of the chest Resp Effort & Inspection: normal respiratory effort Auscultation: clear to auscultation bilaterally Cardio Palpation: normal PMI Rate: regular rate Rhythm: regular rhythm Heart sounds: S1 normal heart sound present, S2 normal heart sound present and no murmurs GI Palpation (GI): Soft to palpation, nontender and No hepatosplenomegaly present Auscultation: normal bowel sounds Rectal Exam - Female: deferred Skin General skin exam: no rashes or lesions noted Neuro General: patient oriented x3, gait normal and moves all extremities Cranial nerves: Yes Equal, round and reactive pupils present Psych Appearance: grossly normal Mental Status: mental status grossly normal Assessment & Plan Assessment & Plan (1) History of ischemic colitis: Code(s): Z87.19 - Personal history of other diseases of the digestive system Category: Medical (2) History of Helicobacter pylori infection: Code(s): Z86.19 - Personal history of other infectious and parasitic diseases Category: Medical (3) GERD (gastroesophageal reflux disease): Code(s): K21.9 - Gastro-esophageal reflux disease without esophagitis Category: Medical (4) Gastroparesis: Code(s): K31.84 - Gastroparesis Category: Medical Plan 65 YF with rheumatoid arthritis--[facility] @ [facility]-discharged, COPD, fibromyalgia, asthma, Elevated levels of transaminases? & lactic acid dehydrogenase, Hepatic steatosis Thalamic pain syndrome,? H. pylori infection - treated, IBS (irritable bowel syndrome), TIA'S, urinary incontinence, chronic bronchitis, anxiety, depression, diabetes mellitus, left breast? cancer. Patient followed in GI for GERD and long standing constipation?likely due to IBS with constipation/ slow transit due to medications. Partial? improvement with Senna 1-2 tablet at? bedtime. Patient was diagnosed with Helicobacter pylori gastritis on EGD in?06/2018 and was treated with triple therapy. 06/2021 FU stool antigen for H pylori was negative Pt was advised to start Pantoprazole twice daily for GERD She has a hx of dysphagia likely due to esophageal motility disorder - no stricture or EOE noted on past EGD. Pt has been followed recently for upper abdominal pain, nausea and vomiting with decreased PO intake and wt loss 06/15/22 EGD was performed in findings as noted above Pt was advised to use a Foam Wedge at night and take famotidine at bedtime for nighttime reflux symptoms. If symptoms persist she may need further evaluation with Esophageal manometry and pH testing prior to considering fundoplication. 01/10/23 Pt seen with worsening symptoms, stopped taking Pantoprazole 2 months ago and advised to resume and take Famotidine prn for breakthrough symptoms 02/01/23 Pt complains of abd pain, bloating with diarrhea and black stools x past 3 days with weakness and dizziness Patient was advised to go to [facility] for further evaluation with labs and repeat CT scan (for Fu of ischemic colitis) Pt had a stable Hct and stool occult blood was negative 04/05/23 Pt advised to have labs and schedule an abd US with doppler to rule out mesenteric ischemia which was negative Stool calprotectin was borderline at 92. C1q, C1 estrase inhibitor protein and C4 were normal 04/29/23 IBD serologies were suggestive of Crohn's disease 06/03/23 Capsule Endoscopy showed: Conclusion: chronic gastritis, other santiago neg small bowel study . 08/16/23 Pt advised to start Lialda 2.4 grams daily for suspected Crohn's disease (Abd pain, nausea, fecal calprotectin of 92 and IBD serologies positive for Crohn's disease) Referral was sent to urology for follow-up of kidney stones Records requested from [facility] ER visit on 08/10/23 09/19/23 Continues to have nausea, bloating, gas and poor appetite Notes early satiety and denies vomiting. Hx of long standing DM. Pt advised to increase Amitiza to 16 mcg twice a day and to schedule a GES 01/23/24 Prescribed Trulance and was not covered by her insurance. Has a BM once a week when she is constipated. Started on MTX 15 mg once a week for RA by her Round Up Ring Hand which should help her Crohn's disease Complains of pain and tinging in her left foot and has a FU appt with her PCP on 01/29/24 06/04/24 Notes resolution of abdominal pain after hand assisted laparoscopic sigmoid colectomy with colorectal anastomosis Continues to have constipation and planning to start Senna 08/04/24 Pt advised to resume Pantoprazole 40 mg daily Increase fluid intake H Pylori breath test today Continue to work on quitting smoking 09/24/24 08/04/24 H Pylori breath test was positive and pt was treated with Bismuth, Tetracycline and Levofloxacin (Failed Calrithromycin) Finished antibiotics last week - Tetracycline and Levo Resumed MTX - noted pain in her knees and big toe while she was off the MTX. Constipated last week - forgot to go to the bathroom. Started taking the Senna twice a day - finally able to go after 3 days. 11/19/23 Seen at [facility] on 11/16/24 - had sharp stabbing pains in the abdomen every time she eats or drinks anything. Pain started 2 weeks after she was admitted to [facility] 10/19/24 with an KS Pt had a burning and bad stabbing pain in the upper abdomen radiating to LUQ. Abd pain comes and goes every time she eats and drinks anything - gets nauseated Can have intermittent vomiting if the nausea is bad - smells and tastes like beer. Also complains of loose to soft stools Pt has mild gastroparesis on GES in the past (13% at 4 hrs) Pt advised stool studies Start metoclopramide 5 mg TID for gastroparesis. She will be scheduled for an EGD for further evaluation of abdominal pain 04/30/25 EGD SHOWED: Endoscopy Findings: ESOPHAGUS: Small hiatal hernia from 34-35 cm. Mildly tortuous esophagus without stricture or ring Empiric balloon dilation of the distal esophagus was performed with a 20 mm CRE balloon x 60 seconds Balloon dilation of the proximal esophagus was performed with an 18 mm CRE balloon x 60 seconds STOMACH: Moderate diffuse gastritis DUODENUM: Normal - biopsied to check for celiac sprue. BIOPSIES SHOWED: A. Duodenum, biopsy: Duodenal mucosa within normal limits; preserved villous architecture and no increase in intraepithelial lymphocytes; negative for gastric foveolar metaplasia/dysplasia. B. Stomach, antrum, biopsy: H pylori gastritis with extensive intestinal metaplasia; negative for dysplasia/malignancy. C. Stomach, body, biopsy: H pylori gastritis; negative for intestinal metaplasia/dysplasia/malignancy. D. Esophagus, distal, biopsy: Squamous mucosa within normal limits; negative for inflammation/fungal organisms/dysplasia/malignancy. E. Esophagus, proximal, biopsy: Squamous mucosa within normal limits; negative for inflammation/ fungal organisms/dysplasia/malignancy Plan: Repeat EGD in 3 years for FU of gastric intestinal metaplasia. 05/13/25 Pt prescribed the following regimen for recurrent H pylori gastritis Pantoprazole 40 mg twice daily x 14 days Levofloxacin 500 mg once a day x 14 days Amox 1 gram TID x 14 days FU last week of June for H Pylori breath test Linzess 145 mcg daily for constipation. 08/19/25 H pylori breath test was negative Taking Linzess for constipation and able to have a BM daily to every other day Still has intermittent dysphagia to solids and liquids and has decreased appetite Food can get stuck in the throat area and ends up regurgitating the food - pt has cricopharyngeal achalasia. FU in 6 months Coding Level of Care Code Est Pt Level 4 (89255) Diagnoses History of ischemic colitis Z87.19 History of Helicobacter pylori infection Z86.19 Gastroesophageal reflux disease without esophagitis K21.9 Gastroparesis K31.84 Time Spent (min) 21
[2025-08-19 08:44] VITALS: BP 105/72; PULSE 80; O2SAT 98; BMI 20.1
--- OUTSIDE RECORDS SUMMARY | 2025-08-19 09:03 | XMS_ITS | Clinical Summary ---
Author Organization [facility] Address [address] [place] [address] Phone Care Team Providers Care Loan Teller Name Role Phone Adela Gipson MD Primary Care Provider [phone] Allergies Active Allergy Reactions Criticality Noted Date [...] Most Recently Relevant to Health Maintenance [place] [address] Care Teams Loan Teller Relationship Specialty Start Date End Date Adela Gipson MD [address] [place] [address] PCP - General Internal Medicine 05/28/22
--- OUTSIDE RECORDS SUMMARY | 2025-08-19 09:03 | XMS_ITS | Clinical Summary ---
Author Organization [facility] Address [address] [address] Phone Care Team Providers Care Flagstone Layer Name Role Phone Unavailable Primary Care Provider [...] It is not the complete legal health record.[facility]
--- OUTSIDE RECORDS SUMMARY | 2025-08-19 09:03 | XMS_ITS | Clinical Summary ---
Author Organization [facility] Address [address] [place] [address] Phone Care Team Providers Care Pension Administrator Name Role Phone Adela Wasserman MD Primary Care Provider [phone] Social History Tobacco Use Types Packs/Day Years Used Date Smoking Tobacco: Never Assessed Comments Unknown Sex and Gender Information Value Date Recorded Sex Assigned at Not on file Legal Sex Female 10:47 PM EST Gender Identity Not on file Sexual Orientation Not on file Plan of Treatment Health Maintenance Due Date Last Done Comments Breast Cancer Screening 1962 Colorectal Cancer Screening: Colonoscopy 1962 Diabetes: Annual GFR (Glomer ular Filtration Rate) 1962 Diabetes: Annual Foot Exam 1972 Diabetes: Annual Retina Eye Exam 1972 DTaP,Tdap,and Td Vaccines (1 - Tdap) 1981 Cervical Cancer Screening: P ap Smear 1983 Pneumococcal Vaccine: 50+ Ye ars (1 of 1 - PCV) 2012 Zoster Vaccines (1 of 2) 2012 RSV Immunization Adult Patie nts (1 - Risk 60-74 years 1-dose series) 2022 Cholesterol Screening (Lipid Panel) 10/21/2022 HIV Screening 10/21/2022 Hepatitis C Screening 10/21/2022 Medicare Annual Wellness Visit 10/21/2022 Social Influencers of Health Screening 10/21/2022 Depression Screening 11/18/2024 Hypertension/CHF/CAD Annual BMP Blood Test 12/13/2024 Diabetes: Annual Urine Albumin-Creatinine Ratio (uACR) 07/16/2025 01/02/2024 Diabetes: Blood Sugar Contro l Test (HGBA1C) 07/16/2025 COVID-19 Vaccine (1 - 2024-2 5 season) 2025 Influenza Vaccine (#1) 2025 HIB Vaccines Aged [...] fective 2023-Present) Name:Rhys Sosa Relation to Subscriber:Self Name:Rhys Sosa Payer ID:[id number] Group ID:[id number] Type:Not on file Address: [place] [address] [place] [id number] Care Teams Pension Administrator Relationship Specialty Start Date End Date Adela Wasserman MD [address] [place] [address] , [facility] [address] [facility] Physician Associ D/B/A: Shirley Padillaatifelicia In Internal Medicine NATA Watson PCP - General Internal Medicine 12/08/24
== END 2025-08-19 09:15 | disposition home or self-care (01) ==
LOC: HO.HGI 08:40
PROVIDERS: PCP Internal Medicine; Visit Provider Internal Medicine Gastroenterology
DX: Z87.19 Personal history of other diseases of the digestive system (principal); Z86.19 Personal history of other infectious and parasitic diseases; K21.9 Gastro-esophageal reflux disease without esophagitis; K31.84 Gastroparesis
CPT/HCPCS: 99214

== ENCOUNTER → 2025-08-19 08:39 | Outpatient (BNVA) | payer OTHER, SELFPAY ==
[2025-08-05 16:00] VITALS: BP 96/60; BP 96/66; BMI 22.5
== END ==
PROVIDERS: PCP Internal Medicine; Visit Provider Internal Medicine Gastroenterology
DX: S30.814A Abrasion of vagina and vulva, initial encounter (principal); K21.9 Gastro-esophageal reflux disease without esophagitis; K31.84 Gastroparesis; Z87.19 Personal history of other diseases of the digestive system; Z86.19 Personal history of other infectious and parasitic diseases
CPT/HCPCS: 99212

== ENCOUNTER 2025-08-19 12:37 | Outpatient (AMB) | payer OTHER, SELFPAY ==
[2025-08-05 16:00] VITALS: BP 96/60; BP 96/66; BMI 22.5
--- NOTE | 2025-08-19 13:12 | MHC.OFFVIS ---
Vital Signs 08/19/25 13:12 Blood Pressure Location Lt brachial Position Sitting Intake Visit Reasons: vulva reinspection Tail Sawyer Required: No Information Interpreted: non-clinical & clinical Inspector Machine Cut Glass: Inspector Machine Cut Glass Present Accompanied by: Karyn Allergies methylprednisolone Allergy (Severe, Verified 08/19/25 08:42) Rash from Solu-Medrol shellfish derived Allergy (Intermediate, Verified 08/19/25 08:42) Hives etanercept (From Enbrel) Adverse Reaction (Severe, Verified 08/19/25 08:42) Facial Swelling metformin Adverse Reaction (Severe, Verified 08/19/25 08:42) Diarrhea metronidazole (From FLAGYL) Adverse Reaction (Severe, Verified 08/19/25 08:42) Diarrhea prednisone Adverse Reaction (Intermediate, Verified 08/19/25 08:42) hallucinations, more than 20 mg doses Post menopausal: Yes HPI Comments Details: Presenting for inpatient regarding vulvar ulcer. The patient is doing well no complaints no vulvar irritation or pain [facility] History CAD (coronary artery disease) NSTEMI (non-ST elevated myocardial infarction) GERD (gastroesophageal reflux disease) Diverticulitis large intestine prison (current) use 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 Acute respiratory distress Tendonitis of ankle or foot Cough Stable angina Anxiety HLD (hyperlipidemia) HTN (hypertension) COPD exacerbation Hyperkalemia Atherosclerotic cardiovascular disease Hospital discharge follow-up Colitis CVA (cerebral vascular accident) (~2018) Breast pain, right Rash Bloody diarrhea PAD (peripheral artery disease) Hyperlipidemia LDL goal <100 COPD (chronic obstructive pulmonary disease) Infiltrating ductal carcinoma of left breast, stage 2 Insomnia Dyslipidemia Bipolar 1 disorder, depressed Cough Restrictive airway disease Hypothyroid IDDM (insulin dependent diabetes mellitus) Vitamin D deficiency Osteoporosis Breast cancer Hyperparathyroidism Thyroid nodule T2DM (type 2 diabetes mellitus) Depression Fibromyalgia Seropositive rheumatoid arthritis Reactive airways dysfunction syndrome Allergic rhinitis Irritable bowel Anxiety Bronchial asthma Diabetes type 2, uncontrolled Surgical History S/P laparoscopic colectomy (04/15/24) Hx of sigmoidoscopy History of bronchoscopy Hx of endoscopy H/O cardiac catheterization History of lumpectomy of left breast History of pubovaginal sling History of esophagogastroduodenoscopy (EGD) History of tubal ligation History of colonoscopy History of bunionectomy of both great toes H/O: hysterectomy Family History Mother Diabetes HTN (hypertension) Uterus cancer Malignant tumor of head Breast cancer Father Diabetes HTN (hypertension) CVD (cardiovascular disease) Heart problem Maternal Aunt Breast cancer Brother Myocardial infarction S/P CABG x 4 Family/Other FH: mental illness Family/Other Lung cancer Other Mental health disorder Social History Household Members: Family Household Members Other:: sister Housing: House Are you a primary farm or ranch animal caretaker to a significant other at home: No Do you presently have visiting nurse or other home services: No Alcohol intake: never Comment: Low fall Patient Tobacco Use Status: Current everyday Tobacco user Tobacco use type: Cigarette Cigarette Packs Per Day: 0.5 Cigarettes Per Day: 3 Years Smoked: 48 e-Cigarette/Vaping Use: Never Used Second Hand Smoke Exposure: No Substance Use Type: Marijuana Advance Directives Date on File: 12/22/21 service: No Current occupational status: disabled Current occupation: rt handed Cognitive needs: No Hearing needs: No Vision needs: Yes Review of Systems Const All systems reviewed & are unremarkable except as noted in HPI and below Card Reports as per HPI and Reports no additional complaints Resp Reports as per HPI and Reports no additional complaints GI Reports as per HPI and Reports no additional complaints Reports as per HPI Physical Exam Const General: cooperative, healthy appearing and comfortable General: Yes bladder normal to palpation External Female Exam: No lesion Speculum Exam - Vagina: normal appearance of the vagina, normal vaginal discharge and not erythematous Speculum Exam - Cervix: Cervix absent Bimanual exam- vagina & uterus: bladder normal to palpation and uterus absent Bimanual Exam- Adnexa, other: Other (No masses detected) Assessment & Plan Assessment & Plan (1) Abrasion of skin of vulva: Comment: Resolved Code(s): S30.814A - Abrasion of vagina and vulva, initial encounter Category: Medical Plan: Discussed with the patient the finding on pelvic exam, resolution of abrasion/ulcer of the vulva. The patient was reassured. Instructions given the patient to call if symptoms/ulcer/abrasion recur. All questions answered, the patient verbalized understanding Coding Level of Care Code Est Pt Level 3 (59711) Diagnoses Abrasion of skin of vulva S30.411H
== END 2025-08-19 13:31 | disposition home or self-care (01) ==
LOC: HO.HWS 12:37
PROVIDERS: PCP Internal Medicine; Visit Provider Obstetrics & Gynecology
DX: S30.814A Abrasion of vagina and vulva, initial encounter (principal)
CPT/HCPCS: 99213

== ENCOUNTER 2025-08-24 09:38 | Outpatient (AMB) | payer OTHER, SELFPAY ==
[2025-08-05 16:00] VITALS: BP 96/60; BP 96/66; BMI 22.5
--- NOTE | 2025-08-24 09:50 | A.OFFPC_ITS ---
Vital Signs 08/24/25 09:51 Height 4 ft 10 in Weight 98 lb 6 oz BMI 20.6 BP 120/62 Blood Pressure Location Lt brachial Position Sitting Pulse 70 Pulse Source Pulse Oximeter Temp 97.1 F Temp Source Temporal Artery Scan Pulse Oximetry (%) 98 Oxygen Delivery Method Room Air Intake Visit Reasons: DM- A1C needed Intake Note: Patient is here to follow up on DM. Site Foreman Required: No Administrative Services Manager: Not Required per policy Accompanied by: Self / Same As Patient Allergies methylprednisolone Allergy (Severe, Verified 08/24/25 10:10) Rash from Solu-Medrol shellfish derived Allergy (Intermediate, Verified 08/24/25 10:10) Hives etanercept (From Enbrel) Adverse Reaction (Severe, Verified 08/24/25 10:10) Facial Swelling metformin Adverse Reaction (Severe, Verified 08/24/25 10:10) Diarrhea metronidazole (From FLAGYL) Adverse Reaction (Severe, Verified 08/24/25 10:10) Diarrhea prednisone Adverse Reaction (Intermediate, Verified 08/24/25 10:10) hallucinations, more than 20 mg doses Medication List - Last Reconciled 08/24/25 by Adela Wasserman MD albuterol sulfate 90 mcg/actuation 2 inhalations inhalation Q4H PRN aspirin 81 mg PO DAILY blood pressure monitor As directed blood pressure test kit-medium As directed blood sugar diagnostic (FreeStyle Lite Strips) Use 1 test strip three times a day uipqoujmke-stlycyokmeebv-ajwa 50-325-40 mg 1 tab PO Q6H PRN [clamp on tub safety rail As directed] clopidogrel 75 mg PO DAILY cyclobenzaprine 10 mg PO TID PRN [ez aircraft pneudraulic systems mechanic bed assist support As directed] famotidine 20 mg PO BEDTIME 90 days oykhkrctjad-qlydtrpny-ocmuujmh 200-62.5-25 mcg (Trelegy Ellipta) 1 ea inhalation DAILY folic acid 1 mg PO DAILY hydroxychloroquine (Plaquenil) 200 mg PO DAILY lancets (FreeStyle Lancets) Use 1 lancet once a day lidocaine 5% (Lidoderm) 1 patch topical DAILY linaclotide (Linzess) 145 mcg PO QAM 30 days lithium carbonate 150 mg PO BID melatonin 1 mg PO BEDTIME methotrexate sodium 17.5 mg (7 x 2.5 mg) PO QWEEK 90 days metoclopramide HCl (Reglan) 5 mg PO TID PRN 30 days metoprolol succinate ER 25 mg PO DAILY ondansetron 4 mg PO Q8H PRN pantoprazole 40 mg PO DAILY pen needle, diabetic USE 1 PEN NEEDLE 6 TIMES A DAY pregabalin 200 mg PO BID Shower Chair As directed simethicone 125 mg PO DAILY PRN sucralfate 1 g PO TID tramadol 50 mg PO BID 30 days trazodone 100 mg PO BEDTIME 90 days walker with seat Tobacco use date assessed: 08/24/25 Dental Screening Dental Screen Date: 12/15/24 HPI HPI Comments History of Present Illness Details The patient is a 65-year-old female presenting for follow-up of chronic conditions including diabetes, rheumatoid arthritis, and osteoporosis. Diabetes Mellitus is well-controlled with an HbA1c of 6.3%. The patient is on a regimen including metoprolol and other medications for management. Rheumatoid Arthritis is managed with methotrexate, taken once weekly. The patient reports persistent pain despite long-term use of Lyrica, which she feels is ineffective. Osteoporosis management includes folic acid supplementation. The patient reports significant memory loss, with difficulty recalling past events and understanding conversations. She is concerned about potential dementia and has a neurology appointment scheduled. The patient experiences severe hot flashes, occurring every 5 to 10 minutes, which disrupt her sleep. These symptoms began after menopause, which she completed a year ago. 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) use 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 Acute respiratory distress Tendonitis of ankle or foot Cough Stable angina Anxiety HLD (hyperlipidemia) HTN (hypertension) COPD exacerbation Hyperkalemia Atherosclerotic cardiovascular disease Hospital discharge follow-up Colitis CVA (cerebral vascular accident) (~2018) Breast pain, right Rash Bloody diarrhea PAD (peripheral artery disease) Hyperlipidemia LDL goal <100 COPD (chronic obstructive pulmonary disease) Infiltrating ductal carcinoma of left breast, stage 2 Insomnia Dyslipidemia Bipolar 1 disorder, depressed Cough Restrictive airway disease Hypothyroid IDDM (insulin dependent diabetes mellitus) Vitamin D deficiency Osteoporosis Breast cancer Hyperparathyroidism Thyroid nodule T2DM (type 2 diabetes mellitus) Depression Fibromyalgia Seropositive rheumatoid arthritis Reactive airways dysfunction syndrome Allergic rhinitis Irritable bowel Anxiety Bronchial asthma Diabetes type 2, uncontrolled Surgical History S/P laparoscopic colectomy (04/15/24) Hx of sigmoidoscopy History of bronchoscopy Hx of endoscopy H/O cardiac catheterization History of lumpectomy of left breast History of pubovaginal sling History of esophagogastroduodenoscopy (EGD) History of tubal ligation History of colonoscopy History of bunionectomy of both great toes H/O: hysterectomy Family History Mother Diabetes HTN (hypertension) Uterus cancer Malignant tumor of head Breast cancer Father Diabetes HTN (hypertension) CVD (cardiovascular disease) Heart problem Maternal Aunt Breast cancer Brother Myocardial infarction S/P CABG x 4 Family/Other FH: mental illness Family/Other Lung cancer Other Mental health disorder Social History Household Members: Family Household Members Other:: sister Housing: House Are you a primary lawn care technician to a significant other at home: No Do you presently have visiting nurse or other home services: No Alcohol intake: never Comment: Low fall Patient Tobacco Use Status: Current everyday Tobacco user Tobacco use type: Cigarette Cigarette Packs Per Day: 0.5 Cigarettes Per Day: 4 Years Smoked: 48 e-Cigarette/Vaping Use: Never Used Second Hand Smoke Exposure: Yes Substance Use Type: Marijuana Advance Directives Date on File: 12/22/21 service: No Current occupational status: disabled Current occupation: rt handed Cognitive needs: No Hearing needs: No Vision needs: Yes Questionnaire Thrive Questionnaire Date Thrive assessed: 04/21/25 I am a: Patient What is your living situation today?: I have a steady place to live Within the past 12 months, did the food you bought not last and you didn't have the money to get more?: Never true Within the past 12 months, did you worry whether your food would run out before you got money to buy more?: Never true Do you have trouble paying for medicines?: No Do you have trouble getting transportation to medical appointments?: No Do you have trouble paying your heating and electricity bill?: No Do you have trouble taking care of your child, family member or friend?: No Do you have trouble with day-to-day activities such as bathing, preparing meals, shopping, managing finances, etc.?: No Are you currently unemployed and looking for a job?: I choose not to answer this question Are you interested in more education?: I choose not to answer this question Please select the resources that you would like help with: None Currently or been in a relationship where the following occur: I choose not to answer THRIVE Score: 0 AUDIT C Alcohol Use Questionnaire (AUDIT-C) 3. How often do you have six or more drinks on one occasion?: Never Total Score: 0 FLAVIA-7 AMB Questionnaire FLAVIA-7 Date FLAVIA - 7 assessed: 04/21/25 Source: Developed by Drs. Hernandez Norris, Gissell Solorzano, Gilmar Szymanski and colleagues, with an educational chris from [employer]. Review of Systems Const All systems reviewed & are unremarkable except as noted in HPI and below Card Denies chest pain at rest, Denies chest pain with activity, Denies edema, Denies irregular heart rhythm, Denies claudication, Denies dyspnea, Denies dyspnea on exertion, Denies orthopnea, Denies paroxysmal nocturnal dyspnea and Denies slow heart rate Resp Denies cough, Denies dyspnea and Denies dyspnea on exertion GI Denies abdominal pain, Denies change in bowel habits, Denies excessive flatus, Denies nausea and Denies vomiting Neuro Denies lack of coordination Physical exam (Primary Care) Vital Signs: Last Vital Signs Temp 97.1 F 08/24/25 09:51 Pulse 70 08/24/25 09:51 BP 120/62 08/24/25 09:51 Pulse Ox 98 08/24/25 09:51 Oxygen Delivery Method Room Air 08/24/25 09:51 BMI result Body Mass Index 20.6 Tobacco/Smoking Status: Tobacco use Status Tobacco use date assessed 08/24/25 08/24/25 10:00 Patient Tobacco Use Status Current everyday Tobacco 08/24/25 10:00 Tobacco use type Cigarette 08/24/25 10:00 e-Cigarette/Vaping Use Never Used 08/24/25 10:00 Thrive Assessment: Date of Thrive Assessment Date Thrive assessed 04/21/25 08/24/25 10:00 Currently or been in a relationship where the following occur: I choose not to answer Resp Effort & Inspection: normal respiratory effort Auscultation: clear to auscultation bilaterally Cardio Jugular venous distension: no JVD Rate: regular rate Rhythm: regular rhythm Heart sounds: S1 normal heart sound present and S2 normal heart sound present Extrem General: Yes full ROM Results AMB Hemoglobin A1c AMB Hemoglobin A1c 6.3 % Last Edit by KENNY Houston on 08/24/25 10:04 Results Reviewed Results Reviewed: Laboratory Last Values Hgb A1c (Clinic) 6.3 % (4.0-6.0) H 08/24/25 09:48 Coding Level of Care Code Est Pt Level 4 (80797) Complex EM visit Add On G2211 Diagnoses Essential hypertension I10 Bipolar 1 disorder, depressed F31.9 Type 2 diabetes mellitus without complication, without long-term current use of insulin E11.9 Diabetes mellitus type: type 2 Diabetes mellitus chcf insulin use: without fishing rod trimmer use Diabetes mellitus complication status: without complication Dyslipidemia E78.5 Seropositive rheumatoid arthritis M05.9 Cognitive impairment R41.89 Chronic obstructive pulmonary disease, unspecified COPD type J44.9 COPD type: unspecified COPD Time Spent (min) 22 Assessment & Plan Assessment & Plan (1) Essential hypertension: Code(s): I10 - Essential (primary) hypertension Category: Medical (2) Bipolar 1 disorder, depressed: Code(s): F31.9 - Bipolar disorder, unspecified Category: Medical (3) Diabetes mellitus: Code(s): E11.9 - Type 2 diabetes mellitus without complications Category: Medical Qualifiers: Diabetes mellitus type: type 2 Diabetes mellitus chcf insulin use: without fishing rod trimmer use Diabetes mellitus complication status: without complication Qualified Code(s): E11.9 - Type 2 diabetes mellitus without complications (4) Dyslipidemia: Code(s): E78.5 - Hyperlipidemia, unspecified Category: Medical (5) Seropositive rheumatoid arthritis: Comment: +++RF+++CCP dx around 1999 [place]: 04/2021- 06/2022- stopped due to severe COPD requiring long standing azithromycin Plaquenil: approx. 02/2021-May 2021 self stopped Enbrel: approx. 02/2021 ordered after cleared for hep A, stopped due to allergy Sulfasalazine: approx. 02/2019- 02/2021 - restarted 09/27/2022 -04/2023 stopped due to heaedache and nausea Methorexate: approx. 11/2016-12/2018 started in [facility] Diagnosed with breast CA so methotrexate discontinued. Changed to sulfsalazine 500mg 2 tabs BID to prevent lung fibrosis as patient was receiving radiation therapy for her breast CA. Completed Radiation therapy February 2019. OnTamoxifen but had side effects so was started on Letrozole in May 2019. MTX restarted 02/2024 Xeljanz: approx. 03/2018-04/2018 Cimzia: aprrox.05/2017- did not take Humira: dates unknown Leflunomide: many years ago, then approx. 08/2020-02/2021 Code(s): M05.9 - Rheumatoid arthritis with rheumatoid factor, unspecified Category: Medical (6) Cognitive impairment: Code(s): R41.89 - Other symptoms and signs involving cognitive functions and awareness Category: Medical (7) COPD (chronic obstructive pulmonary disease): Code(s): J44.9 - Chronic obstructive pulmonary disease, unspecified Category: Medical Qualifiers: COPD type: unspecified COPD Qualified Code(s): J44.9 - Chronic obstructive pulmonary disease, unspecified Plan Plan Patient was informed and verbally consented to the use of an ambient scribe for clinic note documentation during this visit. 1. Diabetes Mellitus The patient's diabetes is well-controlled with an HbA1c of 6.3%. Continue current management and monitor blood glucose levels regularly. 2. Rheumatoid Arthritis The patient is on methotrexate for rheumatoid arthritis management. Evaluate the effectiveness of Lyrica and consider alternative pain management options. 3. Osteoporosis Continue current osteoporosis management with folic acid supplementation. 4. Memory Loss The patient reports significant memory loss and has a neurology appointment scheduled. Consider further evaluation for potential dementia. 5. Hot Flashes The patient experiences severe hot flashes disrupting sleep. Discuss potential management options with the regrind mill operator. Orders: Orders Vitamin B12 and Folate Today E53.8 - Deficiency of other specified B group vitamins IRON PROFILE Today D64.9 - Anemia, unspecified Thyroid Stimulating Hormone Today R41.89 - Other symptoms and signs involving cognitive functions and awareness AMB Hemoglobin A1c Today E11.9 - Type 2 diabetes mellitus without complicati ons, Z79.4 - FDC (current) use of insulin MR head/brain wo con Today R41.89 - Other symptoms and signs involving cognitive functions and awareness Lipid Panel Today E78.5 - Hyperlipidemia, unspecified Complete Blood Count Auto Diff Today D64.9 - Anemia, unspecified Vitamin D 25-OH Total Today E55.9 - Vitamin D deficiency, unspecified Microalbumin, Random (w Creat) Today R80.9 - Proteinuria, unspecified Comprehensive [place]. Panel Fast Today F31.9 - Bipolar disorder, unspecified Referrals Neurology Referral R41.89 - Other symptoms and signs involving cognitive functions and awareness Medications: Refilled metoprolol succinate ER 25 mg PO DAILY 90 tabs 3RF
[2025-08-24 09:51] VITALS: BP 120/62; PULSE 70; TEMP 36.2; O2SAT 98; BMI 20.6
--- OUTSIDE RECORDS SUMMARY | 2025-08-24 10:57 | XMS_ITS | Clinical Summary ---
Author Organization [facility] [employer] [facility] Address [address] [place] [address] Phone Care Team Providers Care Repair Table Operator Name Role Phone Adela Wasserman MD Primary Care Provider [phone] Social History Tobacco Use Types Packs/Day Years [...] ID:[id number] Group ID:[id number] Type:Not on file Address: [place] [address] [place] [id number] Care Teams Repair Table Operator Relationship Specialty Start Date End Date Adela Wasserman MD [address] [place] [address] , [facility] [address] [facility] Physician Associ D/B/A: Shirley Padillaatifelicia In Internal Medicine NATA Watson PCP - General Internal Medicine 12/08/24
--- OUTSIDE RECORDS SUMMARY | 2025-08-24 10:57 | XMS_ITS | Clinical Summary ---
Author Organization [facility] Address [address] [place] [address] Phone Care Team Providers Care Process Safety Engineering Technologist Name Role Phone Adela Gipson MD Primary Care Provider [phone] Allergies Active Allergy Reactions Criticality Noted Date [...] Most Recently Relevant to Health Maintenance [place] [address] Care Teams Process Safety Engineering Technologist Relationship Specialty Start Date End Date Adela Gipson MD [address] [place] [address] PCP - General Internal Medicine 05/28/22
--- OUTSIDE RECORDS SUMMARY | 2025-08-24 10:57 | XMS_ITS | Clinical Summary ---
Author Organization [facility] Address [address] [address] Phone Care Team Providers Care Head Bander And Liner Operator Name Role Phone Unavailable Primary Care [...] It is not the complete legal health record.[facility]
== END 2025-08-24 10:26 | disposition home or self-care (01) ==
LOC: HO.HMCH 09:39
PROVIDERS: PCP Internal Medicine; Visit Provider Internal Medicine
DX: E11.69 Type 2 diabetes mellitus with other specified complication (principal); F31.9 Bipolar disorder, unspecified; M05.9 Rheumatoid arthritis with rheumatoid factor, unspecified; J44.9 Chronic obstructive pulmonary disease, unspecified; Z79.4 Long term (current) use of insulin; I10 Essential (primary) hypertension; E78.5 Hyperlipidemia, unspecified; R41.89 Other symptoms and signs involving cognitive functions and awareness

== ENCOUNTER → 2025-08-24 09:38 | Outpatient (BNVA) | payer OTHER, SELFPAY ==
[2025-08-05 16:00] VITALS: BP 96/60; BP 96/66; BMI 22.5
== END ==
PROVIDERS: PCP Internal Medicine; Visit Provider Internal Medicine
DX: E11.9 Type 2 diabetes mellitus without complications (principal); I10 Essential (primary) hypertension; F31.9 Bipolar disorder, unspecified; E78.5 Hyperlipidemia, unspecified; M05.9 Rheumatoid arthritis with rheumatoid factor, unspecified; R41.89 Other symptoms and signs involving cognitive functions and awareness; J44.9 Chronic obstructive pulmonary disease, unspecified; R80.9 Proteinuria, unspecified; E53.8 Deficiency of other specified B group vitamins; D64.9 Anemia, unspecified; E55.9 Vitamin D deficiency, unspecified
CPT/HCPCS: 83036; 99212

== ENCOUNTER 2025-09-03 08:47 | Outpatient (REF) | payer OTHER, SELFPAY ==
[2025-08-05 16:00] VITALS: BP 96/60; BP 96/66; BMI 22.5
[2025-09-03 09:06] LABS: MANUAL DIFF FLAG NO
--- OUTSIDE RECORDS SUMMARY | 2025-09-03 09:18 | XMS_ITS | Clinical Summary ---
Author Organization [facility] Address [address] [address] Phone Care Team Providers Care Field Assessor Name Role Phone Unavailable Primary Care Provider [...] It is not the complete legal health record.[facility]
--- OUTSIDE RECORDS SUMMARY | 2025-09-03 09:18 | XMS_ITS | Clinical Summary ---
Author Organization [facility] Address [address] [place] [address] Phone Care Team Providers Care Income Tax Preparer Name Role Phone Adela Wasserman MD Primary Care Provider [phone] Social History Tobacco Use Types Packs/Day Years [...] ars (1 of 1 - PCV) 2012 RSV Immunization Adult Patie nts (1 - Risk 50-74 years 1-dose series) 2012 Zoster Vaccines (1 of 2) 2012 Cholesterol Screening (Lipid Panel) 10/21/2022 HIV Screening 10/21/2022 Hepatitis C Screening 10/21/2022 Medicare Annual Wellness Visit 10/21/2022 Social Influencers of Health Screening 10/21/2022 Depression Screening 11/18/2024 Hypertension/CHF/CAD Annual BMP Blood Test 12/13/2024 Diabetes: Annual Urine Albumin-Creatinine Ratio (uACR) 07/16/2025 01/02/2024 Diabetes: Blood Sugar Contro l Test (HGBA1C) 07/16/2025 COVID-19 Vaccine (2023-2 5 season) 2025 Influenza Vaccine (#1) 2025 [...] patient's age to complete this topic [place] [address] MEDICARE Member Subscriber Plan / Payer (Ef fective 2023-Present) Name:Rhys Sosa Relation to Subscriber:Self Name:Rhys Sosa Payer ID:[id number] Group ID:[id number] Type:Not on file Address: [place] [address] [address] [id number] Care Teams Income Tax Preparer Relationship Specialty Start Date End Date Adela Wasserman MD [address] [place] [address] , [address] [facility] D/B/A: [facility]illaat[facility] Internal Medicine NATA Watson PCP - General Internal Medicine 12/08/24
--- OUTSIDE RECORDS SUMMARY | 2025-09-03 09:18 | XMS_ITS | Clinical Summary ---
Author Organization [facility] Address [address] [address] Phone Care Team Providers Care Saloonkeeper Name Role Phone Adela Gipson MD Primary Care Provider [phone] Allergies Active Allergy Reactions Criticality Noted Date [...] Most Recently Relevant to Health Maintenance [place] [address] Care Teams Saloonkeeper Relationship Specialty Start Date End Date Adela Gipson MD [address] [place] [address] PCP - General Internal Medicine 05/28/22
[2025-09-03 09:23] LABS: Hematocrit 42.5 % (37.0-47.0); Hemoglobin 13.6 g/dl (12.0-16.0); Imm Gran Abs Auto 0.03 X10*3/uL (0.00-0.03); Imm Gran Pct Auto 0.4 % (0.0-0.4); Lymphocytes Absolute Auto 2.5 X10*3/uL (1.2-4.9); Mean Corpuscular HGB Conc 32.0 g/dl (31.0-35.0); Mean Corpuscular Hemoglobin 27.9 pg (27.0-33.0); Mean Corpuscular Volume 87.1 fL (80.0-98.0); NRBC Abs Auto 0.000 X10*3/uL (0.0-0.012); NRBC Pct Auto 0.0 /100WBC (0.0-0.2); Platelet Count 281 X10*3/uL (160-400); Red Blood Count 4.88 X10*6/uL (4.20-5.50); White Blood Count 7.7 X10*3/uL (4.8-10.8)
[2025-09-03 10:25] LABS: Alanine Aminotransferase 14 U/L (0-31); Albumin Level 4.4 g/dL (3.5-5.0); Alkaline Phosphatase 73 U/L (39-117); Anion Gap 14 (12-20); Aspartate Amino Transferase 18 U/L (5-31); Blood Urea Nitrogen 18 mg/dL (9-16); Calcium 9.2 mg/dL (8.4-10.2); Carbon Dioxide 25 mmol/L (22-29); Chloride 108 mmol/L (96-108); Cholesterol 260 mg/dL (<200); Estimated Glomerular Filt Rate > 60; HDL Cholesterol 46 mg/dL (>40); Iron 125 mcg/dL (30-160); Percent Iron Saturation 38 % (15-50); Potassium 4.7 mmol/L (3.3-5.1); Sodium 142 mmol/L (135-145); Total Iron Binding Capacity 329 mcg/dL (228-428); Total Protein 7.3 g/dL (6.5-8.0); Triglycerides 147 mg/dL (<150); Unsaturated Iron Binding 204 ug/dL
[2025-09-03 11:48] LABS: Microalbum/Creatinine Ratio Ur 5.3 ug/mg cr (<30)
[2025-09-03 13:53] LABS: Thyroid Stimulating Hormone 1.43 uIU/mL (0.32-4.0)
[2025-09-03 15:06] LABS: Folate 14.8 ng/mL (> or = 4.0); Vitamin B12 234 pg/mL (200-900)
== END 2025-09-03 08:48 | disposition home or self-care (01) ==
LOC: HO.LAB 08:47
PROVIDERS: PCP Internal Medicine; Visit Provider Internal Medicine
DX: E53.8 Deficiency of other specified B group vitamins (principal); D64.9 Anemia, unspecified; E55.9 Vitamin D deficiency, unspecified; E78.5 Hyperlipidemia, unspecified; F31.9 Bipolar disorder, unspecified; R41.89 Other symptoms and signs involving cognitive functions and awareness; R80.9 Proteinuria, unspecified
CPT/HCPCS: 36415; 80053; 80061; 82043; 82306; 82570; 82607; 82746; 83540; 84443; 85025

== ENCOUNTER 2025-09-06 11:39 | Outpatient (AMB) | payer OTHER, SELFPAY ==
[2025-08-05 16:00] VITALS: BP 96/60; BP 96/66; BMI 22.5
--- NOTE | 2025-09-06 11:41 | MHC.OFFVISPS ---
Intake Intake Visit Reasons: f/u consultation Slasher Tender Helper Required: No Allergies methylprednisolone Allergy (Severe, Verified 08/24/25 10:10) Rash from Solu-Medrol shellfish derived Allergy (Intermediate, Verified 08/24/25 10:10) Hives etanercept (From Enbrel) Adverse Reaction (Severe, Verified 08/24/25 10:10) Facial Swelling metformin Adverse Reaction (Severe, Verified 08/24/25 10:10) Diarrhea metronidazole (From FLAGYL) Adverse Reaction (Severe, Verified 08/24/25 10:10) Diarrhea prednisone Adverse Reaction (Intermediate, Verified 08/24/25 10:10) hallucinations, more than 20 mg doses Medication List - Last Reconciled 09/06/25 by Alicia Yarbrough APRN albuterol sulfate 90 mcg/actuation 2 inhalations inhalation Q4H PRN aspirin 81 mg PO DAILY blood pressure monitor As directed blood pressure test kit-medium As directed blood sugar diagnostic (FreeStyle Lite Strips) Use 1 test strip three times a day eaccvbptop-aiygkzbtruzzg-pypa 50-325-40 mg 1 tab PO Q6H PRN [clamp on tub safety rail As directed] clopidogrel 75 mg PO DAILY [ez registered nurse practitioner bed assist support As directed] famotidine 20 mg PO BEDTIME 90 days bnwwbsmzkgy-fdceldryf-rgvjdfpg 200-62.5-25 mcg (Trelegy Ellipta) 1 ea inhalation DAILY folic acid 1 mg PO DAILY hydroxychloroquine (Plaquenil) 200 mg PO DAILY lancets (FreeStyle Lancets) Use 1 lancet once a day lidocaine 5% (Lidoderm) 1 patch topical DAILY linaclotide (Linzess) 145 mcg PO QAM 30 days lithium carbonate 150 mg PO BID methotrexate sodium 17.5 mg (7 x 2.5 mg) PO QWEEK 90 days metoprolol succinate ER 25 mg PO DAILY pantoprazole 40 mg PO DAILY pen needle, diabetic USE 1 PEN NEEDLE 6 TIMES A DAY pregabalin 200 mg PO BID Shower Chair As directed tramadol 50 mg PO BID 30 days trazodone 100 mg PO BEDTIME 90 days walker with seat HPI- Psychiatric Chief Complaint: f/u consultation HPI Narrative: pt taking lithium 150mg bid but had stopped it for many weeks due to not sure it was helping; she now thinks it was; she can't sleep even with trazodone, pregabalin, and melatonin. she is tearful; feels lonely. easily irritated. we discussed addition of low dose seroquel for sleep and mood; discussed risks including interaction with plaquenil and need for labs and ekg in 2 weeks; she agrees to trial. I reviewed her most recntl and ekg and cardiology notes. PHQ9=26 and GAD7=6. At this time due to pts severe depression and insomnia the benefits of meds outweigh risks despite her complex medicla problems; monitoring response, side effects nad labs/ekg are required and reviewed with patient Past Psychiatric History: one IPLOC years ago at ; was at [facility] for 3 years in past Subjective Subjective Subjective Medication Compliance: Yes Side effects from medications: No Review of Systems Medical Review of Systems: unchanged Mental Status Exam Mental Status Exam Patient Appearance: Well Grooomed and Appropriate Patient Orientation: Person, Place, Time and Situation Level of Consciousness: Awake and Appropriate Patient Behavior: Appropriate, Cooperative and Crying Mood Description: Depressed and Anxious Affect Description: Depressed and Anxious Patient Cognition Impaired: No Ability to Follow Directions: Good Speech Pattern: Clear and Coherent Memory Description: Intact Hallucinations: None Delusions: Not Present Thought Process: Intact and Goal Oriented Thought Content: positive for Intact and positive for Goal Oriented Judgement: Fair Assessment and Plan Assessment & Plan (1) Bipolar 1 disorder, depressed: Status: Acute Code(s): F31.9 - Bipolar disorder, unspecified (2) Anxiety: Status: Acute Code(s): F41.9 - Anxiety disorder, unspecified Plan continue lithium 150mg BID start seroquel 25mg at bedtime labs and EKG in 2 weeks stop trazodone if ineffective Medications: New quetiapine (Seroquel) 25 mg PO BEDTIME 30 tabs 0RF Orders: Orders Potassium Today Z79.899 - Other emt intermediate (current) drug therapy ECG 12 lead EKG Today I10 - Essential (primary) hypertension, I25.10 - Atherosclerotic heart disease of [place] coronary artery without angina pectoris, Z79.899 - Other emt intermediate (current) drug therapy Calcium Today Z79.899 - Other group home (current) drug therapy Magnesium Today Z79.899 - Other emt intermediate (current) drug therapy [place] Today Z79.899 - Other emt intermediate (current) drug therapy Counseling and coordination of Care Pt. Self Management counseling: Maintenance-social rhythm, Mod caffeine/ETOH intake, Nutrition education and improvement, Sleep hygiene, General coping skills and Problem solving Medication management counseling: Effectiveness, Side effects, Dosing range, Duration, Drug interaction and Adherence Diagnosis and Prognosis Counseling: Accuracy of diagnosis, Prognosis over time, Impact of diagnosis on life functions, Impact of family relationship, Problematic behaviors secondary to diagnosis and Adequacy of current interventions Details: I spent 40 minutes reviewing the record, seeing the patient and documenting in the medical record. Counseling provided to the patient/caregiver as outlined below. Addressed patient/caregiver concerns regarding current medication regime including effective adherence. Addressed patient/caregiver concerns regarding diagnosis and prognosis including accuracy of diagnosis, prognosis over time, impact of diagnosis. Addressed patient/caregiver concerns regarding impact of recent stressors. 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 Acute respiratory distress Tendonitis of ankle or foot Cough Stable angina Anxiety HLD (hyperlipidemia) HTN (hypertension) COPD exacerbation Hyperkalemia Atherosclerotic cardiovascular disease Hospital discharge follow-up Colitis CVA (cerebral vascular accident) (~2018) Breast pain, right Rash Bloody diarrhea PAD (peripheral artery disease) Hyperlipidemia LDL goal <100 COPD (chronic obstructive pulmonary disease) Infiltrating ductal carcinoma of left breast, stage 2 Insomnia Dyslipidemia Bipolar 1 disorder, depressed Cough Restrictive airway disease Hypothyroid IDDM (insulin dependent diabetes mellitus) Vitamin D deficiency Osteoporosis Breast cancer Hyperparathyroidism Thyroid nodule T2DM (type 2 diabetes mellitus) Depression Fibromyalgia Seropositive rheumatoid arthritis Reactive airways dysfunction syndrome Allergic rhinitis Irritable bowel Anxiety Bronchial asthma Diabetes type 2, uncontrolled Surgical History S/P laparoscopic colectomy (04/15/24) Hx of sigmoidoscopy History of bronchoscopy Hx of endoscopy H/O cardiac catheterization History of lumpectomy of left breast History of pubovaginal sling History of esophagogastroduodenoscopy (EGD) History of tubal ligation History of colonoscopy History of bunionectomy of both great toes H/O: hysterectomy Family History Mother Diabetes HTN (hypertension) Uterus cancer Malignant tumor of head Breast cancer Father Diabetes HTN (hypertension) CVD (cardiovascular disease) Heart problem Maternal Aunt Breast cancer Brother Myocardial infarction S/P CABG x 4 Family/Other FH: mental illness Family/Other Lung cancer Other Mental health disorder Social History Household Members: Family Household Members Other:: sister Housing: House Are you a primary child care giver to a significant other at home: No Do you presently have visiting nurse or other home services: No Alcohol intake: never Comment: Low fall Patient Tobacco Use Status: Current everyday Tobacco user Tobacco use type: Cigarette Cigarette Packs Per Day: 0.5 Cigarettes Per Day: 4 Years Smoked: 48 e-Cigarette/Vaping Use: Never Used Second Hand Smoke Exposure: Yes Substance Use Type: Marijuana Advance Directives Date on File: 12/22/21 service: No Current occupational status: disabled Current occupation: rt handed Cognitive needs: No Hearing needs: No Vision needs: Yes Social History: lives with sister, 2 nephews and 1 son and nephew and his 9 month old son Substance History: none known Coding Level of Care Code Est Pt Level 4 (56750) Diagnoses Bipolar 1 disorder, depressed F31.9 Anxiety F41.9
== END 2025-09-06 12:59 | disposition home or self-care (01) ==
LOC: HO.HOP 11:39
PROVIDERS: PCP Internal Medicine; Visit Provider Clinical Nurse Specialist Psychiatric/Mental Health
DX: F31.9 Bipolar disorder, unspecified (principal); F41.9 Anxiety disorder, unspecified
CPT/HCPCS: 99214

== ENCOUNTER → 2025-09-06 11:39 | Outpatient (BNVA) | payer OTHER, SELFPAY ==
[2025-08-05 16:00] VITALS: BP 96/60; BP 96/66; BMI 22.5
== END ==
PROVIDERS: PCP Internal Medicine; Visit Provider Clinical Nurse Specialist Psychiatric/Mental Health
DX: F31.9 Bipolar disorder, unspecified (principal); F41.9 Anxiety disorder, unspecified
CPT/HCPCS: 99212

== ENCOUNTER 2025-09-13 10:31 | Outpatient (AMB) | payer OTHER, SELFPAY ==
[2025-08-05 16:00] VITALS: BP 96/60; BP 96/66; BMI 22.5
[2025-09-13 10:46] VITALS: BP 110/70; PULSE 94; BMI 20.8
--- NOTE | 2025-09-13 10:46 | MHC.OFFVIS ---
Vital Signs 09/13/25 10:46 Height 4 ft 10 in Weight 99 lb 10.383 oz BMI 20.8 BP 110/70 Blood Pressure Location Lt brachial Position Sitting Pulse 94 Pulse Source Pulse Oximeter Intake Visit Reasons: 6mth f/up Intake Note: 6 mth f/up Uptwist Spinner Required: No Accompanied by: Self / Same As Patient Allergies methylprednisolone Allergy (Severe, Verified 08/24/25 10:10) Rash from Solu-Medrol shellfish derived Allergy (Intermediate, Verified 08/24/25 10:10) Hives etanercept (From Enbrel) Adverse Reaction (Severe, Verified 08/24/25 10:10) Facial Swelling metformin Adverse Reaction (Severe, Verified 08/24/25 10:10) Diarrhea metronidazole (From FLAGYL) Adverse Reaction (Severe, Verified 08/24/25 10:10) Diarrhea prednisone Adverse Reaction (Intermediate, Verified 08/24/25 10:10) hallucinations, more than 20 mg doses Medication List - Last Reconciled 09/13/25 by Joseph Salmon MD albuterol sulfate 90 mcg/actuation 2 inhalations inhalation Q4H PRN aspirin 81 mg PO DAILY blood pressure monitor As directed blood pressure test kit-medium As directed blood sugar diagnostic (FreeStyle Lite Strips) Use 1 test strip three times a day pcmijkccwt-phyibvmoselsj-yimm 50-325-40 mg 1 tab PO Q6H PRN [clamp on tub safety rail As directed] clopidogrel 75 mg PO DAILY [ez 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 operator bed assist support As directed] famotidine 20 mg PO BEDTIME 90 days drmnrrrhdtx-ovskysupu-ezlfxnpk 200-62.5-25 mcg (Trelegy Ellipta) 1 ea inhalation DAILY folic acid 1 mg PO DAILY hydroxychloroquine (Plaquenil) 200 mg PO DAILY lancets (FreeStyle Lancets) Use 1 lancet once a day lidocaine 5% (Lidoderm) 1 patch topical DAILY linaclotide (Linzess) 145 mcg PO QAM 30 days lithium carbonate 150 mg PO BID methotrexate sodium 17.5 mg (7 x 2.5 mg) PO QWEEK 90 days metoprolol succinate ER 25 mg PO DAILY pantoprazole 40 mg PO DAILY pen needle, diabetic USE 1 PEN NEEDLE 6 TIMES A DAY pregabalin 200 mg PO BID quetiapine (Seroquel) 25 mg PO BEDTIME Shower Chair As directed tramadol 50 mg PO BID 30 days trazodone 100 mg PO BEDTIME 90 days walker with seat HPI Comments Details: 65-year-old female who has known history of coronary disease with previous PCI to left circumflex artery in December 2021, hypertension, hyperlipidemia, type 2 diabetes, COPD and fibromyalgia. She is returning for follow-up. She was seen last time with chest discomfort. There was some dyspnea on exertion also. She underwent stress echocardiogram which she was able to exercise to 7 metabolic equivalents without any EKG changes or wall motion abnormalities. 11/2022: Unfortunately had influenza in October and is recovering from that. Still having significant shortness of breath and continues to have mild wheezes. She just finished her prednisone taper yesterday. She is having upper abdominal pain. Denying any chest discomfort on follow-up. No peripheral edema. No obvious signs of heart failure. 06/10/23: She returns for follow-up. She is saying she has been experiencing significant shortness of breath and has been using the inhaler and nebulizers quite frequently. She also had some chest pain and went to emergency department and was ruled out. She has stress testing recently which was normal. She is saying that depending on whether her breathing changes. If it is humid and hot outside she gets really out of breath. She is still smoking 2 cigarettes per day. Overall from cardiovascular point of view she has stable angina and mostly has shortness of breath due to COPD. 09/23/23: She returns for follow-up. She underwent stress testing where she had hypotensive response to exercise. She was taken for cardiac catheterization which revealed stable disease with no significant LAD or RCA stenosis. Her previous circumflex stents were patent. She returns for follow-up and continues to smoke. She continues to have some sharp non anginal chest pains. She is following with pulmonology for COPD. She was on Wellbutrin which was stopped because she had history of seizures. We discussed about starting Chantix and she is agreeable. 01/27/2024: She returns for follow-up. She could not tolerate Chantix. She is still trying and is currently on 1 cigarette per day. She has Crohn's disease and has significant GI issues and unable to eat and drink well. She has been noticed to be tachycardic and and is saying that she is unable to eat and drink well. She will discuss this with GI. She also has left ankle pain and some burning sensation on the left calf. She also has a bandlike burning sensation in the thoracic region radiating to the front. No rashes noted by her. She has questions that are her symptoms due to amyloidosis as she has Googled her symptoms. She was reassured. 06/03/24: She is here for follow-up. She has restarted smoking unfortunately. Blood pressure control is good. Getting some reproducible left-sided chest pains off and on. She is asking whether she can have a lipid panel done. 09/21/24: Repeat cholesterol testing in 06/06/2024 showing total cholesterol 190, LDL 108, HDL 35 and triglycerides 239. After circumflex PCI she was started on statins but it appears she had GI upset after starting cardiovascular medicines and stopped taking the statins. She has not restarted statins since then. She was given lisinopril on last visit because blood pressure was elevated but is saying that she had nausea and GI upset and stopped taking lisinopril. Continues to smoke at this stage. We discussed about smoking cessation. 11/04/24: She is here for f/u. She had CP early october and went to [facility] for inf STEMI. She was noted to have severe ISR and underwent PCI to OM2. She has been on ASA and Brilinta. She has stopped smoking since she had NM. Blood pressure well controlled. 02/10/2025: She is here for follow-up. She is complaining of some dyspnea at nighttime when she takes Brilinta. She has been taking Brilinta only once a day and she is saying that the script said so. No chest pain or other shortness of breath during the day. Dyspnea the way she is describing he is a side effect of Brilinta. 09/13/2025: She is here for follow-up. She has been doing better with Plavix. She continues to get some dyspnea with activities. She continues to smoke unfortunately. No bleeding issues. Overall stable. 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 Acute respiratory distress Tendonitis of ankle or foot Cough Stable angina Anxiety HLD (hyperlipidemia) HTN (hypertension) COPD exacerbation Hyperkalemia Atherosclerotic cardiovascular disease Hospital discharge follow-up Colitis CVA (cerebral vascular accident) (~2018) Breast pain, right Rash Bloody diarrhea PAD (peripheral artery disease) Hyperlipidemia LDL goal <100 COPD (chronic obstructive pulmonary disease) Infiltrating ductal carcinoma of left breast, stage 2 Insomnia Dyslipidemia Bipolar 1 disorder, depressed Cough Restrictive airway disease Hypothyroid IDDM (insulin dependent diabetes mellitus) Vitamin D deficiency Osteoporosis Breast cancer Hyperparathyroidism Thyroid nodule T2DM (type 2 diabetes mellitus) Depression Fibromyalgia Seropositive rheumatoid arthritis Reactive airways dysfunction syndrome Allergic rhinitis Irritable bowel Anxiety Bronchial asthma Diabetes type 2, uncontrolled Surgical History S/P laparoscopic colectomy (04/15/24) Hx of sigmoidoscopy History of bronchoscopy Hx of endoscopy H/O cardiac catheterization History of lumpectomy of left breast History of pubovaginal sling History of esophagogastroduodenoscopy (EGD) History of tubal ligation History of colonoscopy History of bunionectomy of both great toes H/O: hysterectomy Family History Mother Diabetes HTN (hypertension) Uterus cancer Malignant tumor of head Breast cancer Father Diabetes HTN (hypertension) CVD (cardiovascular disease) Heart problem Maternal Aunt Breast cancer Brother Myocardial infarction S/P CABG x 4 Family/Other FH: mental illness Family/Other Lung cancer Other Mental health disorder Social History Household Members: Family Household Members Other:: sister Housing: House Are you a primary respite care provider to a significant other at home: No Do you presently have visiting nurse or other home services: No Alcohol intake: never Comment: Low fall Patient Tobacco Use Status: Current everyday Tobacco user Tobacco use type: Cigarette Cigarette Packs Per Day: 0.5 Cigarettes Per Day: 4 Years Smoked: 48 e-Cigarette/Vaping Use: Never Used Second Hand Smoke Exposure: Yes Substance Use Type: Marijuana Advance Directives Date on File: 12/22/21 service: No Current occupational status: disabled Current occupation: rt handed Cognitive needs: No Hearing needs: No Vision needs: Yes Review of Systems Const Denies chills, Denies fatigue, Denies fever(s), Denies frequent falls, Denies weakness, Denies weight gain and Denies weight loss ENT Denies dizziness Card Denies chest pain, Denies leg edema, Denies lightheadedness, Denies palpitations, Denies dyspnea and Denies dyspnea on exertion Resp Denies cough, Denies dyspnea and Denies dyspnea on exertion GI Denies hematochezia Musc Denies abnormal gait, Denies muscle weakness, Denies numbness, Denies radiating pain into limb and Denies tingling Neuro Denies abnormal gait, Denies dizziness, Denies frequent falls, Denies numbness, Denies tingling and Denies weakness Endo Denies fatigue and Denies palpitations Physical Exam Vital Signs: Last Vital Signs Pulse 94 09/13/25 10:46 BP 110/70 09/13/25 10:46 BMI result Body Mass Index 20.8 GENERAL APPEARANCE: in no acute distress, pleasant. NECK: no carotid bruit, no jugular venous distention. SKIN: no suspicious lesions, warm and dry. HEART: no murmurs, regular rate and rhythm. LUNGS: Lungs clear to auscultation. ABDOMEN: soft. EXTREMITIES: no edema. PERIPHERAL PULSES: equal. NEUROLOGIC: No gross deficits, AAO X 3 Assessment & Plan Assessment & Plan (1) HTN (hypertension): Code(s): I10 - Essential (primary) hypertension Category: Medical Qualifiers: Hypertension type: primary hypertension Qualified Code(s): I10 - Essential (primary) hypertension (2) CAD (coronary artery disease): Code(s): I25.10 - Atherosclerotic heart disease of [place] coronary artery without angina pectoris Category: Medical (3) COPD (chronic obstructive pulmonary disease): Code(s): J44.9 - Chronic obstructive pulmonary disease, unspecified Category: Medical Qualifiers: COPD type: unspecified COPD Qualified Code(s): J44.9 - Chronic obstructive pulmonary disease, unspecified Plan 65-year-old female who is here for follow-up. She recently had acute coronary syndrome and was treated with drug-eluting stent. She had some dyspnea with Brilinta and we change her to Plavix 75 mg daily after loading dose of 300 mg. She is currently taking aspirin and Plavix. Tolerating medications well. She continues to smoke unfortunately and we discussed once again that she needs to quit smoking. She needs a new care analyst and I am referring her to pulmonology for management COPD. Follow-up in few months. Thank you for allowing me to participate in the care of your patient. Please feel free to contact me if you have any questions. Orders: Referrals Pulmonology Referral J44.9 - Chronic obstructive pulmonary disease, unspecified Medications: New wylfrjnrsja-cxlpiwgka-zehkwjkk 200-62.5-25 mcg (Trelegy Ellipta) 1 ea inhalation DAILY 28 ea 0RF J44.9 - Chronic obstructive pulmonary disease, unspecified Coding Level of Care Code Est Pt Level 4 (30518) Diagnoses Primary hypertension I10 Hypertension type: primary hypertension CAD (coronary artery disease) I25.10 Chronic obstructive pulmonary disease, unspecified COPD type J44.9 COPD type: unspecified COPD
--- OUTSIDE RECORDS SUMMARY | 2025-09-13 12:58 | XMS_ITS | Clinical Summary ---
Author Organization [facility] Address [address] [place] [place] [address] Phone Care Team Providers Care Mutuel Clerk Name Role Phone Adela Gipson MD [...] Most Recently Relevant to Health Maintenance [place] [address] Care Teams Mutuel Clerk Relationship Specialty Start Date End Date Adela Gipson MD [address] [place] [address] PCP - General Internal Medicine 05/28/22
--- OUTSIDE RECORDS SUMMARY | 2025-09-13 12:58 | XMS_ITS | Clinical Summary ---
Author Organization [facility] Address [address] [address] Phone Care Team Providers Care Retail Management Keyholder Name Role Phone Unavailable Primary Care Provider [...] Payer (Ef fective 2006-Present) Name:Sosa Joiner Member ID:[id number] Relation to Subscriber:Self Name:Sosa Joiner Subscriber ID:[id number] Payer ID:[id number] Group ID:Not on file Type:Medicare Address: [employer] [address] [address] [place] [address] [place] Member Subscriber Plan / Payer (Ef fective 2006-Present) Name:Sosa Joiner Member ID:[id number] Relation to Subscriber:Self Name:Sosa Joiner Subscriber ID:[id number] Payer ID:[id number] Group ID:Not on file Type:Medicare Address: [employer] [address] [address] [place], [place] [id number] [place] B Member Subscriber Plan / Payer (Ef fective 2006-Present) Name:Sosa Joiner Member ID:[id number] Relation to Subscriber:Self Name:oSsa Joiner Subscriber ID:[id number] Payer ID:[id number] Group ID:Not on file Type:Medicare Address: [employer] [address] [address] [place], [place] [id number] [place] A [place] B Additional Source Comments The information contained in this document represents components of the legal health record. It is not the complete legal health record.[facility]
--- OUTSIDE RECORDS SUMMARY | 2025-09-13 12:58 | XMS_ITS | Clinical Summary ---
Author Organization [facility] [employer] [facility] Address [address] [address] Phone Care Team Providers Care Paper Sealer Name Role Phone Adela Wasserman MD Primary Care Provider [phone] Social History Tobacco Use Types Packs/Day Years [...] patient's age to complete this topic [place] [place] [address] MEDICARE Member Subscriber Plan / Payer (Ef fective 2023-Present) Name:Rhys Sosa Relation to Subscriber:Self Name:Rhys Sosa Payer ID:[id number] Group ID:[id number] Type:Not on file Address: [place] [address] [address] [address] Care Teams Paper Sealer Relationship Specialty Start Date End Date Adela Wasserman MD [address] [place] [address] , [address] [facility] D/B/A: [facility] PCP - General Internal Medicine 12/08/24
== END 2025-09-13 11:00 | disposition home or self-care (01) ==
LOC: HO.HCS 10:33
PROVIDERS: PCP Internal Medicine; Visit Provider Internal Medicine Cardiovascular Disease
DX: I10 Essential (primary) hypertension (principal); I25.10 Atherosclerotic heart disease of native coronary artery without angina pectoris; J44.9 Chronic obstructive pulmonary disease, unspecified
CPT/HCPCS: 99214

== ENCOUNTER → 2025-09-13 10:31 | Outpatient (BNVA) | payer OTHER, SELFPAY ==
[2025-08-05 16:00] VITALS: BP 96/60; BP 96/66; BMI 22.5
== END ==
PROVIDERS: PCP Internal Medicine; Visit Provider Internal Medicine Cardiovascular Disease
DX: I10 Essential (primary) hypertension (principal); I25.10 Atherosclerotic heart disease of native coronary artery without angina pectoris; J44.9 Chronic obstructive pulmonary disease, unspecified
CPT/HCPCS: 99212

== ENCOUNTER 2025-09-30 08:43 | Outpatient (REF) | payer OTHER, SELFPAY ==
[2025-08-05 16:00] VITALS: BP 96/60; BP 96/66; BMI 22.5
[2025-09-30 15:18] LABS: Folate > 20.0 ng/mL (> or = 4.0); Vitamin B12 236 pg/mL (200-900)
== END 2025-09-30 08:44 | disposition home or self-care (01) ==
LOC: HO.HKASLDS 08:43
PROVIDERS: PCP Internal Medicine; Visit Provider Psychiatry & Neurology Neurology
DX: R41.89 Other symptoms and signs involving cognitive functions and awareness (principal); R06.83 Snoring; G47.10 Hypersomnia, unspecified; G47.00 Insomnia, unspecified
CPT/HCPCS: 36415; 82607; 82746; 83090; 99202

== ENCOUNTER 2025-09-30 08:43 | Outpatient (AMB) | payer OTHER, SELFPAY ==
[2025-08-05 16:00] VITALS: BP 96/60; BP 96/66; BMI 22.5
--- NOTE | 2025-09-30 08:43 | A.OFFVIS_ITS ---
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 Required: No Accompanied by: Self / Same As Patient Allergies methylprednisolone Allergy (Severe, Verified 09/30/25 08:44) Rash from Solu-Medrol shellfish derived Allergy (Intermediate, Verified 09/30/25 08:44) Hives etanercept (From Enbrel) Adverse Reaction (Severe, Verified 09/30/25 08:44) Facial Swelling metformin Adverse Reaction (Severe, Verified 09/30/25 08:44) Diarrhea metronidazole (From FLAGYL) Adverse Reaction (Severe, Verified 09/30/25 08:44) Diarrhea prednisone Adverse Reaction (Intermediate, Verified 09/30/25 08:44) hallucinations, more than 20 mg doses Medication List - Last Reconciled 09/30/25 by Jenni Thakkar MD albuterol sulfate 90 mcg/actuation 2 inhalations inhalation Q4H PRN aspirin 81 mg PO DAILY blood pressure monitor As directed blood pressure test kit-medium As directed blood sugar diagnostic (FreeStyle Lite Strips) Use 1 test strip three times a day tctkgzvufk-atmtadgipzzbi-tdce 50-325-40 mg 1 tab PO Q6H PRN [clamp on tub safety rail As directed] clopidogrel 75 mg PO DAILY [ez forgesmith bed assist support As directed] famotidine 20 mg PO BEDTIME 90 days tbgxdnonizs-besshzsud-yzwzzjey 200-62.5-25 mcg (Trelegy Ellipta) 1 ea inhalation DAILY folic acid 1 mg PO DAILY hydroxychloroquine (Plaquenil) 200 mg PO DAILY lancets (FreeStyle Lancets) Use 1 lancet once a day lidocaine 5% (Lidoderm) 1 patch topical DAILY linaclotide (Linzess) 145 mcg PO QAM 30 days lithium carbonate 150 mg PO BID methotrexate sodium 17.5 mg (7 x 2.5 mg) PO QWEEK 90 days metoprolol succinate ER 25 mg PO DAILY pantoprazole 40 mg PO DAILY pen needle, diabetic USE 1 PEN NEEDLE 6 TIMES A DAY pregabalin 200 mg PO BID quetiapine (Seroquel) 25 mg PO BEDTIME rizatriptan 10 mg PO Q2-4H PRN 30 days Shower Chair As directed tramadol 50 mg PO BID 30 days trazodone 100 mg PO BEDTIME 90 days walker with seat HPI Comments Details: 65y/o female comes for evaluation of cognitive impairment . About 1 year she started noticing that she had trouble recalling recent events , trouble with wordfinding, forgetting conversations, misplacing things around the house, trouble remembering appointments , medications , peoples names, dates etc. she does not drive she lives with her son sister and nephew. 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 she has COPD diabetes bipolar and rheumatoid arthritis, cad etc No family h/o dementia She denies head injury she has h/o bipolar and is on lithium. she has some facial movements.No exposure to antipsychotics she has poor sleep - snoring gasping arousals, witnessed apneas, hypersomnia PFSH Medical History Severe major depression without psychotic features CAD (coronary artery disease) NSTEMI (non-ST elevated myocardial infarction) GERD (gastroesophageal reflux disease) Diverticulitis large intestine rx specialist (current) use 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 Acute respiratory distress Tendonitis of ankle or foot Cough Stable angina Anxiety HLD (hyperlipidemia) HTN (hypertension) COPD exacerbation Hyperkalemia Atherosclerotic cardiovascular disease Hospital discharge follow-up Colitis CVA (cerebral vascular accident) (~2018) Breast pain, right Rash Bloody diarrhea PAD (peripheral artery disease) Hyperlipidemia LDL goal <100 COPD (chronic obstructive pulmonary disease) Infiltrating ductal carcinoma of left breast, stage 2 Insomnia Dyslipidemia Bipolar 1 disorder, depressed Cough Restrictive airway disease Hypothyroid IDDM (insulin dependent diabetes mellitus) Vitamin D deficiency Osteoporosis Breast cancer Hyperparathyroidism Thyroid nodule T2DM (type 2 diabetes mellitus) Depression Fibromyalgia Seropositive rheumatoid arthritis Reactive airways dysfunction syndrome Allergic rhinitis Irritable bowel Anxiety Bronchial asthma Diabetes type 2, uncontrolled Surgical History S/P laparoscopic colectomy (04/15/24) Hx of sigmoidoscopy History of bronchoscopy Hx of endoscopy H/O cardiac catheterization History of lumpectomy of left breast History of pubovaginal sling History of esophagogastroduodenoscopy (EGD) History of tubal ligation History of colonoscopy History of bunshailactomy of both great toes H/O: hysterectomy Family History Mother Diabetes HTN (hypertension) Uterus cancer Malignant tumor of head Breast cancer Father Diabetes HTN (hypertension) CVD (cardiovascular disease) Heart problem Maternal Aunt Breast cancer Brother Myocardial infarction S/P CABG x 4 Family/Other FH: mental illness Family/Other Lung cancer Other Mental health disorder Social History Household Members: Family Household Members Other:: sister Housing: House Are you a primary healthcare administrator to a significant other at home: No Do you presently have visiting nurse or other home services: No Alcohol intake: never Comment: Low fall Patient Tobacco Use Status: Current everyday Tobacco user Tobacco use type: Cigarette Cigarette Packs Per Day: 0.5 Cigarettes Per Day: 4 Years Smoked: 48 e-Cigarette/Vaping Use: Never Used Second Hand Smoke Exposure: Yes Substance Use Type: Marijuana Advance Directives Date on File: 12/22/21 service: No Current occupational status: disabled Current occupation: rt handed Cognitive needs: No Hearing needs: No Vision needs: Yes Physical Exam Vital Signs: Last Vital Signs Pulse 74 09/30/25 08:44 BP 142/70 H 09/30/25 08:44 Pulse Ox 98 09/30/25 08:44 Oxygen Delivery Method Room Air 09/30/25 08:44 Const General: cooperative, healthy appearing, comfortable and no acute distress Nutritional Appearance: average body habitus Orientation/consciousness: patient oriented x3 Eyes Pupils: Equal, round and reactive pupils present Neuro General: patient oriented x3, gait normal, tone normal, moves all extremities and no focal motor deficits Cranial nerves: Yes Facial sensation intact/muscles of mastication intact, Yes Equal, round and reactive pupils present, Yes Bilaterally intact EOM present, Yes Nystagmus not present, Yes Normal facial strength present, Yes Midline tongue present and Yes Symmetric palate elevation present Cognition (Neuro): normal cognition Gait exam (Neuro): Normal gait present Motor exam (neuro): 5/5 motor strength present throughout and Normal motor muscle tone present throughout Deep tendon reflexes (DTR's): Right triceps reflex intensity grade: 2+, Left triceps reflex intensity grade: 2+, Rt Biceps (C5, C6): 2+, Left biceps reflex intensity grade: 2+, Right brachioradialis reflex intensity grade: 2+, Left brachioradialis reflex intensity grade: 2+, Right patellar reflex intensity grade: 2+ and Left patellar reflex intensity grade: 2+ Coordination: ujcpth-lo-cvde test normal Orientation What is the (year) (season) (date) (day) (month)?: year, season, date, day and m ont Where are we (state) (county) (town or city) (hospital) (floor)?: state, county, town or city, hospital/clinic and floor Registration Name of 3 unrelated objects clearly and slowly, then ask patient to repeat all 3 of them. (1st repeat determines score. Make sure they can repeat all three): object 1, object 2 and object 3 Attention & Calculation (CHOOSE ONE) Spell WORLD backwards (DLROW): 5 letters Recall Ask patient to repeat the 3 items from question #3.: object 1, object 2 and object 3 Language Show patient a wristwatch & ask what it is. Repeat for pencil.: watch and pencil Ask the patient to repeat the phrase 'No ifs, ands, or buts' after you.: correct Ask the patient to 'take a piece of paper with their right hand' 'fold paper in half' 'place paper on floor': take paper in right hand, fold paper in half and place paper on floor Print the sentence 'CLOSE YOUR EYES' on a piece. If patient actually closes eyes then score.: followed written direction Give patient a blank piece of paper & ask to write a sentence. Score if it contains a noun & verb.: sentence contains subject and verb Ask patient to copy figure of intersecting pentagons exactly. Score if all 10 angles & 2 intersects are included.: all 10 angles present & 2 are intersected Score Score: 30 Assessment & Plan Assessment & Plan (1) Cognitive impairment: Comment: she did well on MMSE. her cognitive issues are likley multifactorial- mood, vascular , sleep etc Code(s): R41.89 - Other symptoms and signs involving cognitive functions and awareness Category: Medical (2) Snoring: Code(s): R06.83 - Snoring Category: Medical (3) Hypersomnia: Code(s): G47.10 - Hypersomnia, unspecified Category: Medical (4) Insomnia: Code(s): G47.00 - Insomnia, unspecified Category: Medical Qualifiers: Insomnia type: unspecified Qualified Code(s): G47.00 - Insomnia, unspecified Plan TSH was normal . B12 was low normal she is scheduled for MRI brain I will recheck her Vit B12 and homocysteine Home sleep test to r/o sleep apnea Cognitive eval and therapy Orders: Orders RT home sleep study Today G47.10 - Hypersomnia, unspecified, R06.83 - Snoring Homocysteine Today R41.89 - Other symptoms and signs involving cognitive functions and awareness Vitamin B12 and Folate Today R41.89 - Other symptoms and signs involving cognitive functions and awareness Referrals Speech and Hearing Referral R41.89 - Other symptoms and signs involving cognitive functions and awareness Coding Level of Care Code New Pt Level 4 (32208) Complex EM visit Add On G2211 Diagnoses Cognitive impairment R41.89 Snoring R06.83 Hypersomnia G47.10 Insomnia, unspecified type G47.00 Insomnia type: unspecified
[2025-09-30 08:44] VITALS: BP 142/70; PULSE 74; O2SAT 98
--- OUTSIDE RECORDS SUMMARY | 2025-09-30 09:05 | XMS_ITS | Clinical Summary ---
Author Organization [facility] Address [address] [address] Phone Care Team Providers Care Wedger Name Role Phone Unavailable Primary Care Provider [...] It is not the complete legal health record.[facility]
--- OUTSIDE RECORDS SUMMARY | 2025-09-30 09:05 | XMS_ITS | Clinical Summary ---
Author Organization [facility] [employer] [facility] Address [address] [place] [address] Phone Care Team Providers Care Band And Cuff Cutter Name Role Phone Adela Wasserman MD Primary Care Provider [phone] Social History Tobacco Use Types Packs/Day Years [...] Contro l Test (HGBA1C) 07/16/2025 COVID-19 Vaccine (2024-2 6 season) 2025 Influenza Vaccine (#1) 2025 HIB [...] patient's age to complete this topic [place] [address] [place] [address] MEDICARE Member Subscriber Plan / Payer (Ef fective 2023-Present) Name:Sosa Joiner Relation to Subscriber:Self Name:Rhys Sosa Payer ID:[id number] Group ID:[id number] Type:Not on file Address: [place] [address] [place] [address] Care Teams Band And Cuff Cutter Relationship Specialty Start Date End Date Adela Wasserman MD [address] [place] [address] , [address] [facility]ician Associ D/B/A: [facility] NATA Watson PCP - General Internal Medicine 12/08/24
== END 2025-09-30 09:13 | disposition home or self-care (01) ==
PROVIDERS: PCP Internal Medicine; Visit Provider Psychiatry & Neurology Neurology
DX: R41.89 Other symptoms and signs involving cognitive functions and awareness (principal); R06.83 Snoring; G47.10 Hypersomnia, unspecified; G47.00 Insomnia, unspecified
CPT/HCPCS: 99204; G2211

== ENCOUNTER 2025-10-02 10:10 | Emergency (ER) | payer OTHER, SELFPAY ==
[2025-08-05 16:00] VITALS: BP 96/60; BP 96/66; BMI 22.5
[2025-10-02 10:14] VITALS: BP 172/77; PULSE 84; RESP 16; TEMP 36.7; O2SAT 95; BMI 20.5
[2025-10-02 11:31] VITALS: BP 142/68; PULSE 75; RESP 16; TEMP 36.8; O2SAT 97
--- NOTE | 2025-10-02 11:31 | ED.SKABFB ---
HPI - Skin/Abscess/Foreign Bdy General Chief complaint: Skin/Abscess/Foreign Body Stated complaint: Dizziness Time Seen by Provider: 10/02/25 11:27 Source: patient Mode of arrival: ambulatory Limitations: no limitations History of Present Illness HPI narrative: This is a 64 years old female presented to the emergency department with a chief complaint of cyst in the right labia since yesterday. She has a history of diabetes she has no other systemic symptoms, no fever no chills no vomiting MD complaint: abscess/boil Onset (ago): day(s) (1) Location: genitals (Right labia) Severity: mild Quality: burning Pain Consistency: constant Relieving factors: none Exacerbating factors: none Treatments prior to arrival: none Related Data Home Medications ?Medication ?Instructions ?Recorded ?Confirmed albuterol sulfate 90 mcg/actuation 2 inh inhalation Q4H PRN Shortness 08/23/23 10/04/25 aerosol inhaler Of Breath Or Wheezing Previous Rx's ?Medication ?Instructions ?Recorded walker #1 ea 02/08/23 Shower Chair #1 ea 01/15/24 clamp on tub safety rail #1 ea 01/15/24 ez cloth washer bed assist support #1 ea 01/15/24 blood pressure monitor #1 ea 11/04/24 blood pressure test kit-medium #1 ea 11/04/24 lancets 28 gauge (FreeStyle #100 ea 12/09/24 Lancets) clopidogrel 75 mg tablet 75 mg PO DAILY #100 tabs 02/10/25 pantoprazole 40 mg tablet,delayed 40 mg PO DAILY #90 tabs 02/12/25 release folic acid 1 mg tablet 1 mg PO DAILY #90 tabs 04/27/25 methotrexate sodium 2.5 mg tablet 17.5 mg (7 x 2.5 mg) PO QWEEK 90 04/27/25 days #91 tabs pregabalin 200 mg capsule 200 mg PO BID #60 caps 04/27/25 tramadol 50 mg tablet 50 mg PO BID pain 30 days #60 tabs 04/27/25 linaclotide 145 mcg capsule 145 mcg PO QAM 30 days #30 caps 05/13/25 (Linzess) lidocaine 5 % topical patch 1 patch topical DAILY #15 ea 06/12/25 (Lidoderm) hydroxychloroquine 200 mg tablet 200 mg PO DAILY #90 tabs 06/17/25 (Plaquenil) aspirin 81 mg tablet,delayed 81 mg PO DAILY #90 tabs 07/15/25 release metoprolol succinate 25 mg 25 mg PO DAILY #90 tabs 08/24/25 tablet,extended release 24 hr lithium carbonate 150 mg capsule 150 mg PO BID #60 caps 08/27/25 blood sugar diagnostic (FreeStyle #100 ea 09/05/25 Lite Strips) fluticasone fur. 200 mcg-umeclid 1 ea inhalation DAILY #28 ea 09/13/25 62.5 mcg-vilant 25 mcg inhalat.powder (Trelegy Ellipta) subgjgywls-oaoywdqnmnpio-ykiuossd 1 tab PO Q6H PRN haeadace #20 tabs 09/17/25 50 mg-325 mg-40 mg tablet trazodone 100 mg tablet 100 mg PO BEDTIME 90 days #90 tabs 09/17/25 pen needle, diabetic 31 gauge x #100 ea 09/20/25 5/16 famotidine 20 mg tablet 20 mg PO BEDTIME 90 days #90 tabs 09/23/25 rizatriptan 10 mg tablet 10 mg PO Q2-4H PRN migraine 09/28/25 headache 30 days #7 tabs quetiapine 25 mg tablet 25 mg PO BEDTIME #90 tabs 09/30/25 cephalexin 500 mg capsule 500 mg PO Q8H #21 caps 10/02/25 mecobalamin (vitamin B12) 1,000 1,000 mcg PO DAILY #60 ea 10/04/25 mcg lozenges Allergies Allergy/AdvReac Type Severity Reaction Status Date / Time methylprednisolone Allergy Severe Rash from Verified 10/04/25 13:19 Solu-Medrol shellfish derived Allergy Intermediate Hives Verified 10/04/25 13:19 etanercept (From Enbrel) AdvReac Severe Facial Verified 10/04/25 13:19 Swelling metformin AdvReac Severe Diarrhea Verified 10/04/25 13:19 metronidazole (From FLAGYL) AdvReac Severe Diarrhea Verified 10/04/25 13:19 prednisone AdvReac Intermediate hallucinations, Verified 10/04/25 13:19 more than 20 mg doses Review of Systems Constitutional: Constitutional: Reports no additional constitutional complaints ENT: Reports system reviewed and no additional complaints, except as documented Respiratory: Respiratory: Reports no additional respiratory complaints PMFSH Past Medical History Attestation statement: The following information was validated with the patient. Medical History Snoring Hypersomnia Severe major depression without psychotic features CAD (coronary artery disease) NSTEMI (non-ST elevated myocardial infarction) GERD (gastroesophageal reflux disease) Diverticulitis large intestine USP (current) use 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 Acute respiratory distress Tendonitis of ankle or foot Cough Stable angina Anxiety HLD (hyperlipidemia) HTN (hypertension) COPD exacerbation Hyperkalemia Atherosclerotic cardiovascular disease Hospital discharge follow-up Colitis CVA (cerebral vascular accident) (~2018) Breast pain, right Rash Bloody diarrhea PAD (peripheral artery disease) Hyperlipidemia LDL goal <100 COPD (chronic obstructive pulmonary disease) Infiltrating ductal carcinoma of left breast, stage 2 Insomnia Dyslipidemia Bipolar 1 disorder, depressed Cough Restrictive airway disease Hypothyroid IDDM (insulin dependent diabetes mellitus) Vitamin D deficiency Osteoporosis Breast cancer Hyperparathyroidism Thyroid nodule T2DM (type 2 diabetes mellitus) Depression Fibromyalgia Seropositive rheumatoid arthritis Reactive airways dysfunction syndrome Allergic rhinitis Irritable bowel Anxiety Bronchial asthma Diabetes type 2, uncontrolled Surgical History S/P laparoscopic colectomy (04/15/24) Hx of sigmoidoscopy History of bronchoscopy Hx of endoscopy H/O cardiac catheterization History of lumpectomy of left breast History of pubovaginal sling History of esophagogastroduodenoscopy (EGD) History of tubal ligation History of colonoscopy History of bunionectomy of both great toes H/O: hysterectomy Family History Family History Mother Diabetes HTN (hypertension) Uterus cancer Malignant tumor of head Breast cancer Father Diabetes HTN (hypertension) CVD (cardiovascular disease) Heart problem Maternal Aunt Breast cancer Brother Myocardial infarction S/P CABG x 4 Family/Other FH: mental illness Family/Other Lung cancer Other Mental health disorder Social History Social History Household Members: Family Household Members Other:: sister Housing: House Are you a primary skin care specialist to a significant other at home: No Do you presently have visiting nurse or other home services: No Alcohol intake: never Comment: Low fall Patient Tobacco Use Status: Current everyday Tobacco user Tobacco use type: Cigarette Cigarette Packs Per Day: 0.5 Cigarettes Per Day: 4 Years Smoked: 48 e-Cigarette/Vaping Use: Never Used Second Hand Smoke Exposure: Yes Substance Use Type: Marijuana Advance Directives Date on File: 12/22/21 service: No Current occupational status: disabled Current occupation: rt handed Cognitive needs: No Hearing needs: No Vision needs: Yes Physical Exam Exam: Exam: No acute distress the patient looks well Vital Signs: Vital Signs: Last Vital Signs Temp 98.3 F 10/02/25 11:46 Pulse 75 10/02/25 11:46 Resp 16 10/02/25 11:46 BP 142/68 H 10/02/25 11:46 Pulse Ox 97 10/02/25 11:46 O2 Del Method Room Air 10/02/25 11:46 BMI result Body Mass Index 20.5 Const: General: cooperative Nutritional Appearance: average body habitus Orientation/consciousness: patient oriented x3 Limitations: no limitations HEENT: Head: Yes normal to inspection Ears: hearing grossly normal bilaterally General nose exam: Normal external nose present Mouth: Normal oral and palatal mucosa present Throat: Yes posterior oropharynx normal Neck: Neck: Yes normal visual inspection Chest: Chest palpation & inspection: normal inspection of the chest Resp: Effort & Inspection: normal respiratory effort Auscultation: clear to auscultation bilaterally Cardio: Jugular venous distension: no JVD Rate: regular rate Rhythm: regular rhythm GI: Inspection: Yes normal to inspection Palpation (GI): Soft to palpation Percussion: Yes normal to percussion Auscultation: normal bowel sounds : Other: Examination of the genitalia shows tiny nodular structure in the right labia about 1 x 1 cm Skin: General skin exam: no rashes or lesions noted Lesions: no lesions Rashes: no rashes Neuro: General: patient oriented x3 Medical Decision Making Medical Decision Making MDM Narrative: Patient was presented with a cyst in the right labia very small no draining, I do not think it needs to be I and D right now we will cover with the antibiotic discharge home and follow-up with Dr. Terry on Saturday, she is very comfortable with the plan of care she usually followed by Dr. Terry Differential Diagnosis Differential Diagnoses: The differential diagnosis associated with the presentation includes Cyst/abscess/nodule Admission/Observation Consideration of admission/observation: Escalation of care including admission/observation considered Discharge Plan Discharge Clinical Impression: Labial cyst Patient Disposition: Home, Self-Care Instructions: Cyst (ED) Prescriptions: New cephalexin 500 mg capsule 500 mg PO Q8H Qty: 21 0RF No Action (DME) walker Misc See Rx Instructions .Route Qty: 1 0RF Rx Instructions: with seat (DME) Shower Chair Misc See Rx Instructions .Route Qty: 1 0RF Rx Instructions: As directed (DME) clamp on tub safety rail See Rx Instructions .Route .MEDSUPPLY Qty: 1 0RF Rx Instructions: As directed (DME) ez cloth washer bed assist support See Rx Instructions .Route .MEDSUPPLY Qty: 1 0RF Rx Instructions: As directed (DME) lancets [FreeStyle Lancets] 28 gauge misc See Rx Instructions .Route Qty: 100 3RF Rx Instructions: Use 1 lancet once a day pantoprazole 40 mg tablet,delayed release (DR/EC) 40 mg PO DAILY Qty: 90 1RF hydroxychloroquine [Plaquenil] 200 mg tablet 200 mg PO DAILY Qty: 90 1RF aspirin 81 mg tablet,delayed release (DR/EC) 81 mg PO DAILY Qty: 90 3RF lithium carbonate 150 mg capsule 150 mg PO BID Qty: 60 2RF (DME) FreeStyle Lite Strips Strip MISCELLANEOUS DAILY Qty: 100 1RF Rx Instructions: Use 1 test strip three times a day zbeaocczib-ycbuayfskrzfg-ierf 50-325-40 mg tablet 1 tab PO Q6H PRN (Reason: haeadace) Qty: 20 0RF trazodone 100 mg tablet 100 mg PO BEDTIME 90 Days Qty: 90 1RF (DME) pen needle, diabetic 31 gauge x 5/16 needle See Rx Instructions .ROUTE .COMPLEX Qty: 100 11RF Dose Instruction: USE 1 PEN NEEDLE 6 TIMES A DAY Rx Instructions: USE 1 PEN NEEDLE 6 TIMES A DAY famotidine 20 mg tablet 20 mg PO BEDTIME 90 Days Qty: 90 1RF rizatriptan 10 mg tablet 10 mg PO Q2-4H PRN (Reason: migraine headache) 30 Days Qty: 7 0RF Rx Instructions: do not exceed 3 doses per 24 hrs quetiapine 25 mg tablet 25 mg PO BEDTIME Qty: 90 1RF lidocaine [Lidoderm] 5 % adhesive patch,medicated 1 patch topical DAILY Qty: 15 0RF Rx Instructions: leave on most painful area for up to 12 hrs albuterol sulfate 90 mcg/actuation HFA aerosol inhaler 2 inh inhalation Q4H PRN (Reason: Shortness Of Breath Or Wheezing) (DME) blood pressure monitor Kit See Rx Instructions .Route Qty: 1 0RF Rx Instructions: As directed clopidogrel 75 mg tablet 75 mg PO DAILY Qty: 100 4RF Rx Instructions: Take 4 tablets on first day then 1 tablet daily. metoprolol succinate 25 mg tablet extended release 24 hr 25 mg PO DAILY Qty: 90 3RF triamcinolone acetonide [Kenalog] 40 mg/mL suspension 40 mg intrabursal ONCE Qty: 1 0RF mecobalamin (vitamin B12) 1,000 mcg lozenge 1,000 mcg PO DAILY Qty: 60 0RF Rx Instructions: allow to dissolve in mouth OR may chew lightly before swallowing (DME) blood pressure test kit-medium Kit See Rx Instructions .Route Qty: 1 0RF Rx Instructions: As directed tramadol 50 mg tablet 50 mg PO BID 30 Days Qty: 60 5RF methotrexate sodium 2.5 mg tablet 17.5 mg PO QWEEK 90 Days Qty: 91 1RF folic acid 1 mg tablet 1 mg PO DAILY Qty: 90 1RF pregabalin 200 mg capsule 200 mg PO BID Qty: 60 4RF Linzess 145 mcg capsule 145 mcg PO QAM 30 Days Qty: 30 3RF Trelegy Ellipta 200-62.5-25 mcg blister with device 1 ea inhalation DAILY Qty: 28 0RF Referrals: Adela Gipson MD [Primary Care Provider, Internal Medicine] Mike Terry MD [Physician, [employer]] - 10/05/25 Interventions: ED Discharge Assessment Last Done: 10/02/25 11:46 Discharge Date/Time: 10/02/25 11:47 Print Language: [place]
[2025-10-02 11:46] VITALS: BP 142/68; PULSE 75; RESP 16; TEMP 36.8; O2SAT 97
== END 2025-10-02 11:47 | disposition home or self-care (01) ==
PROVIDERS: Emergency Provider Emergency Medicine; PCP Internal Medicine
DX: N90.7 Vulvar cyst (principal); E11.9 Type 2 diabetes mellitus without complications; I10 Essential (primary) hypertension; Z86.73 Personal history of transient ischemic attack (TIA), and cerebral infarction without residual deficits; Z88.8 Allergy status to other drugs, medicaments and biological substances
CPT/HCPCS: 99283; 99284

== ENCOUNTER 2025-10-04 10:26 | Outpatient (REF) | payer OTHER, SELFPAY ==
[2025-08-05 16:00] VITALS: BP 96/60; BP 96/66; BMI 22.5
== END 2025-10-04 10:27 | disposition home or self-care (01) ==
LOC: HO.LNP 10:26
PROVIDERS: PCP Internal Medicine; Visit Provider Clinical Nurse Specialist Psychiatric/Mental Health
DX: N76.4 Abscess of vulva (principal); F31.9 Bipolar disorder, unspecified; F41.9 Anxiety disorder, unspecified; Z79.899 Other long term (current) drug therapy; Z98.51 Tubal ligation status
CPT/HCPCS: 56405; 87070; 87077; 87186; 87205; 99212

== ENCOUNTER 2025-10-04 10:26 | Outpatient (AMB) | payer OTHER, SELFPAY ==
[2025-08-05 16:00] VITALS: BP 96/60; BP 96/66; BMI 22.5
--- NOTE | 2025-10-04 10:37 | MHC.OFFVISPS ---
Intake Intake Visit Reasons: f/u consultation Night Clerk Required: No Allergies methylprednisolone Allergy (Severe, Verified 10/02/25 10:16) Rash from Solu-Medrol shellfish derived Allergy (Intermediate, Verified 10/02/25 10:16) Hives etanercept (From Enbrel) Adverse Reaction (Severe, Verified 10/02/25 10:16) Facial Swelling metformin Adverse Reaction (Severe, Verified 10/02/25 10:16) Diarrhea metronidazole (From FLAGYL) Adverse Reaction (Severe, Verified 10/02/25 10:16) Diarrhea prednisone Adverse Reaction (Intermediate, Verified 10/02/25 10:16) hallucinations, more than 20 mg doses Medication List - Last Reconciled 10/04/25 by Alicia Yarbrough APRN albuterol sulfate 90 mcg/actuation 2 inhalations inhalation Q4H PRN aspirin 81 mg PO DAILY blood pressure monitor As directed blood pressure test kit-medium As directed blood sugar diagnostic (FreeStyle Lite Strips) Use 1 test strip three times a day nloxdqqelh-aopslndsoztrz-riqb 50-325-40 mg 1 tab PO Q6H PRN cephalexin 500 mg PO Q8H [clamp on tub safety rail As directed] clopidogrel 75 mg PO DAILY [ez paper processing machine helper bed assist support As directed] famotidine 20 mg PO BEDTIME 90 days hqkohghsbip-abjsxymwr-dcsohbya 200-62.5-25 mcg (Trelegy Ellipta) 1 ea inhalation DAILY folic acid 1 mg PO DAILY hydroxychloroquine (Plaquenil) 200 mg PO DAILY lancets (FreeStyle Lancets) Use 1 lancet once a day lidocaine 5% (Lidoderm) 1 patch topical DAILY linaclotide (Linzess) 145 mcg PO QAM 30 days lithium carbonate 150 mg PO BID methotrexate sodium 17.5 mg (7 x 2.5 mg) PO QWEEK 90 days metoprolol succinate ER 25 mg PO DAILY pantoprazole 40 mg PO DAILY pen needle, diabetic USE 1 PEN NEEDLE 6 TIMES A DAY pregabalin 200 mg PO BID quetiapine 25 mg PO BEDTIME rizatriptan 10 mg PO Q2-4H PRN 30 days Shower Chair As directed tramadol 50 mg PO BID 30 days trazodone 100 mg PO BEDTIME 90 days walker with seat HPI- Psychiatric Chief Complaint: f/u consultation HPI Narrative: pt restarted lithium 150mg bid a week ago. she thinks it is helping. she is sleeping better with the seroquel 25mg at bedtime. She did not get labs and ekg done yet. she is struggling more with anxiety, worry and sadness as her son is at risk of losing his housing if he can't stay sober. he has been sober for 10 days. Pt agrees to get a therapist for more support Past Psychiatric History: one IPLOC years ago at ; was at [facility] for 3 years in past Subjective Subjective Medication Compliance: Yes Side effects from medications: No Review of Systems Medical Review of Systems: unchanged Mental Status Exam Mental Status Exam Patient Appearance: Well Grooomed and Appropriate Patient Orientation: Person, Place, Time and Situation Level of Consciousness: Awake and Appropriate Patient Behavior: Appropriate, Cooperative and Crying Mood Description: Depressed and Anxious Affect Description: Depressed and Anxious Patient Cognition Impaired: No Ability to Follow Directions: Good Speech Pattern: Clear and Coherent Memory Description: Intact Hallucinations: None Delusions: Not Present Thought Process: Intact and Goal Oriented Thought Content: positive for Intact and positive for Goal Oriented Judgement: Fair Assessment and Plan Assessment & Plan (1) Bipolar 1 disorder, depressed: Status: Acute Code(s): F31.9 - Bipolar disorder, unspecified (2) Anxiety: Status: Acute Code(s): F41.9 - Anxiety disorder, unspecified Plan continue lithium 150mg BID continue seroquel 25mg at bedtime continue trazodone if ineffective start vitamin B12 1000 mcg collaborate with RYLEE re: therapy Medications: New mecobalamin (vitamin B12) allow to dissolve in mouth OR may chew lightly before swallowing 1,000 mcg PO DAILY 60 ea 0RF Counseling and coordination of Care Pt. Self Management counseling: Maintenance-social rhythm, Mod caffeine/ETOH intake, Nutrition education and improvement, Sleep hygiene, General coping skills and Problem solving Medication management counseling: Effectiveness, Side effects, Dosing range, Duration, Drug interaction and Adherence Diagnosis and Prognosis Counseling: Accuracy of diagnosis, Prognosis over time, Impact of diagnosis on life functions, Impact of family relationship, Problematic behaviors secondary to diagnosis and Adequacy of current interventions Details: I spent 40 minutes reviewing the record, seeing the patient and documenting in the medical record. Counseling provided to the patient/caregiver as outlined below. Addressed patient/caregiver concerns regarding current medication regime including effective adherence. Addressed patient/caregiver concerns regarding diagnosis and prognosis including accuracy of diagnosis, prognosis over time, impact of diagnosis. Addressed patient/caregiver concerns regarding impact of recent stressors. [facility] Medical History Snoring Hypersomnia Severe major depression without psychotic features CAD (coronary artery disease) NSTEMI (non-ST elevated myocardial infarction) GERD (gastroesophageal reflux disease) Diverticulitis large intestine residential (current) use 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 Acute respiratory distress Tendonitis of ankle or foot Cough Stable angina Anxiety HLD (hyperlipidemia) HTN (hypertension) COPD exacerbation Hyperkalemia Atherosclerotic cardiovascular disease Hospital discharge follow-up Colitis CVA (cerebral vascular accident) (~2018) Breast pain, right Rash Bloody diarrhea PAD (peripheral artery disease) Hyperlipidemia LDL goal <100 COPD (chronic obstructive pulmonary disease) Infiltrating ductal carcinoma of left breast, stage 2 Insomnia Dyslipidemia Bipolar 1 disorder, depressed Cough Restrictive airway disease Hypothyroid IDDM (insulin dependent diabetes mellitus) Vitamin D deficiency Osteoporosis Breast cancer Hyperparathyroidism Thyroid nodule T2DM (type 2 diabetes mellitus) Depression Fibromyalgia Seropositive rheumatoid arthritis Reactive airways dysfunction syndrome Allergic rhinitis Irritable bowel Anxiety Bronchial asthma Diabetes type 2, uncontrolled Surgical History S/P laparoscopic colectomy (04/15/24) Hx of sigmoidoscopy History of bronchoscopy Hx of endoscopy H/O cardiac catheterization History of lumpectomy of left breast History of pubovaginal sling History of esophagogastroduodenoscopy (EGD) History of tubal ligation History of colonoscopy History of bunionectomy of both great toes H/O: hysterectomy Family History Mother Diabetes HTN (hypertension) Uterus cancer Malignant tumor of head Breast cancer Father Diabetes HTN (hypertension) CVD (cardiovascular disease) Heart problem Maternal Aunt Breast cancer Brother Myocardial infarction S/P CABG x 4 Family/Other FH: mental illness Family/Other Lung cancer Other Mental health disorder Social History Household Members: Family Household Members Other:: sister Housing: House Are you a primary care consultant to a significant other at home: No Do you presently have visiting nurse or other home services: No Alcohol intake: never Comment: Low fall Patient Tobacco Use Status: Current everyday Tobacco user Tobacco use type: Cigarette Cigarette Packs Per Day: 0.5 Cigarettes Per Day: 4 Years Smoked: 48 e-Cigarette/Vaping Use: Never Used Second Hand Smoke Exposure: Yes Substance Use Type: Marijuana Advance Directives Date on File: 12/22/21 service: No Current occupational status: disabled Current occupation: rt handed Cognitive needs: No Hearing needs: No Vision needs: Yes Social History: lives with sister, 2 nephews and 1 son and nephew and his 9 month old son Substance History: none known Coding Level of Care Code Est Pt Level 4 (37237) Diagnoses Bipolar 1 disorder, depressed F31.9 Anxiety F41.9
== END 2025-10-04 10:56 | disposition home or self-care (01) ==
LOC: HO.HOP 10:26
PROVIDERS: PCP Internal Medicine; Visit Provider Clinical Nurse Specialist Psychiatric/Mental Health
DX: F31.9 Bipolar disorder, unspecified (principal); F41.9 Anxiety disorder, unspecified
CPT/HCPCS: 99214

== ENCOUNTER 2025-10-04 13:12 | Outpatient (AMB) | payer OTHER, SELFPAY ==
[2025-10-04 10:53] VITALS: BP 96/60; BP 96/66; BMI 22.5
[2025-10-04 13:18] VITALS: BMI 20.5
--- NOTE | 2025-10-04 13:18 | MHC.OFFVIS ---
Vital Signs 10/04/25 13:18 Height 4 ft 10 in Weight 98 lb BMI 20.5 Intake Visit Reasons: cyst on labia Business Machine Mechanic Required: No Information Interpreted: non-clinical & clinical Organizational Development Director: Organizational Development Director Present ([facility]) Accompanied by: Self / Same As Patient Allergies methylprednisolone Allergy (Severe, Verified 10/04/25 13:19) Rash from Solu-Medrol shellfish derived Allergy (Intermediate, Verified 10/04/25 13:19) Hives etanercept (From Enbrel) Adverse Reaction (Severe, Verified 10/04/25 13:19) Facial Swelling metformin Adverse Reaction (Severe, Verified 10/04/25 13:19) Diarrhea metronidazole (From FLAGYL) Adverse Reaction (Severe, Verified 10/04/25 13:19) Diarrhea prednisone Adverse Reaction (Intermediate, Verified 10/04/25 13:19) hallucinations, more than 20 mg doses Post menopausal: Yes HPI Comments Details: Presenting referred from the emergency room. The patient developed a right labia swelling that is tender no fever or chills, no vaginal discharge, no other associated symptoms, the patient was prescribed cephalexin since the ER visit and has been on it since then [facility] Medical History Snoring Hypersomnia Severe major depression without psychotic features CAD (coronary artery disease) NSTEMI (non-ST elevated myocardial infarction) GERD (gastroesophageal reflux disease) Diverticulitis large intestine director long term care (current) use 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 Acute respiratory distress Tendonitis of ankle or foot Cough Stable angina Anxiety HLD (hyperlipidemia) HTN (hypertension) COPD exacerbation Hyperkalemia Atherosclerotic cardiovascular disease Hospital discharge follow-up Colitis CVA (cerebral vascular accident) (~2018) Breast pain, right Rash Bloody diarrhea PAD (peripheral artery disease) Hyperlipidemia LDL goal <100 COPD (chronic obstructive pulmonary disease) Infiltrating ductal carcinoma of left breast, stage 2 Insomnia Dyslipidemia Bipolar 1 disorder, depressed Cough Restrictive airway disease Hypothyroid IDDM (insulin dependent diabetes mellitus) Vitamin D deficiency Osteoporosis Breast cancer Hyperparathyroidism Thyroid nodule T2DM (type 2 diabetes mellitus) Depression Fibromyalgia Seropositive rheumatoid arthritis Reactive airways dysfunction syndrome Allergic rhinitis Irritable bowel Anxiety Bronchial asthma Diabetes type 2, uncontrolled Surgical History S/P laparoscopic colectomy (04/15/24) Hx of sigmoidoscopy History of bronchoscopy Hx of endoscopy H/O cardiac catheterization History of lumpectomy of left breast History of pubovaginal sling History of esophagogastroduodenoscopy (EGD) History of tubal ligation History of colonoscopy History of bunionectomy of both great toes H/O: hysterectomy Family History Mother Diabetes HTN (hypertension) Uterus cancer Malignant tumor of head Breast cancer Father Diabetes HTN (hypertension) CVD (cardiovascular disease) Heart problem Maternal Aunt Breast cancer Brother Myocardial infarction S/P CABG x 4 Family/Other FH: mental illness Family/Other Lung cancer Other Mental health disorder Social History Household Members: Family Household Members Other:: sister Housing: House Are you a primary student career development specialist to a significant other at home: No Do you presently have visiting nurse or other home services: No Alcohol intake: never Comment: Low fall Patient Tobacco Use Status: Current everyday Tobacco user Tobacco use type: Cigarette Cigarette Packs Per Day: 0.5 Cigarettes Per Day: 4 Years Smoked: 48 e-Cigarette/Vaping Use: Never Used Second Hand Smoke Exposure: Yes Substance Use Type: Marijuana Advance Directives Date on File: 12/22/21 service: No Current occupational status: disabled Current occupation: rt handed Cognitive needs: No Hearing needs: No Vision needs: Yes Review of Systems Const All systems reviewed & are unremarkable except as noted in HPI and below Physical Exam Vital Signs: BMI result Body Mass Index 20.5 General: Yes no CVA tenderness External Female Exam: No normal external appearance (Right labial abscess) and normal appearance of the urethra Speculum Exam - Vagina: normal appearance of the vagina, normal palpation, no lesions and no masses Speculum Exam - Cervix: normal appearance of the cervix, normal palpation, no lesions, no masses and nontender Bimanual exam- vagina & uterus: normal bimanual exam, normal palpation, uterine size normal, normal palpation, uterine shape normal, No Cervical tenderness present and non-tender Bimanual Exam- Adnexa, other: normal adnexae Back/Spine/Pelvis Back: no CVA tenderness Office Procedures Incision/Drainage MUSIC ORCHESTRATOR Incision/Drainage MUSIC ORCHESTRATOR Details: Before the procedure was started d/w patient the procedure, alternatives (do nothing, medical rx), & all the risks associated with the procedure ( bleeding , infection, vulvar scarring, painful intercourse, injury to vessels, possible need for transfusion with all its risks) then patient signed the consent. Preoperative diagnosis: Right Vulvar Abscess. Operation: Right Vulvar I & D Post-operative diagnosis: Same Anesthesia: Lidocaine 1% 3cc used Procedure: The skin was prepped with Betadine, palpation was used for guidance, 11-blade was used to incise the skin contiguous with the abscess cavity. This yielded 5 cc of purulent fluid &substantially decompressed the swelling, a clean dressing was used at the end. The patient tolerated the procedure well. The patient was sent home in stable condition. Discharge Instructions: The patient was instructed to call if temp>100.4, abdominal pain, nausea/vomiting. This note was generated with a voice recognition program. Some errors may have been overlooked during the review of this note. Sometimes these errors may affect the content or meaning of a given sentence. 43479-H&D of vulva/perineum All charges added?: Procedure code (CPT) selection complete Assessment & Plan Assessment & Plan (1) Labial abscess: Comment: Right labia majora Code(s): N76.4 - Abscess of vulva Category: Medical Plan: Discussed with the patient the finding on pelvic exam showing a right labia majora abscess, recommended I&D. I&D done, culture sent, see procedure Orders: Orders Incision & Drainage MUSIC ORCHESTRATOR Today N76.4 - Abscess of vulva Coding Level of Care Code Est Pt Level 3 (38978) Procedure Only Diagnoses Labial abscess N76.4 CPT Codes Incision/Drainage MUSIC ORCHESTRATOR - IDGYN 1: 96371-Y&D of vulva/perineum ([id number])
== END 2025-10-04 14:32 | disposition home or self-care (01) ==
LOC: HO.HWS 13:12
PROVIDERS: PCP Internal Medicine; Visit Provider Obstetrics & Gynecology
DX: N76.4 Abscess of vulva (principal)
CPT/HCPCS: 56405; 99213

== ENCOUNTER → 2025-10-05 07:36 | Outpatient (BNV) | payer OTHER, SELFPAY ==
[2025-10-04 10:53] VITALS: BP 96/60; BP 96/66; BMI 22.5
== END ==
PROVIDERS: PCP Internal Medicine; Visit Provider Radiology Diagnostic Radiology
DX: R41.89 Other symptoms and signs involving cognitive functions and awareness (principal)
CPT/HCPCS: 70551

== ENCOUNTER 2025-10-05 07:52 | Outpatient (REF) | payer OTHER, SELFPAY ==
[2025-10-04 10:53] VITALS: BP 96/60; BP 96/66; BMI 22.5
--- NOTE | ~2025-10-05 | MR_ITS ---
EXAMINATION: MR BRAIN WITHOUT CONTRAST CLINICAL INFORMATION: R 41.89 COMPARISON: Correlated to CT dated November 02, 2024 TECHNIQUE: MRI of the brain was obtained using routine sequences without contrast. FINDINGS: No restricted diffusion. Focal, 2 cm macrocystic encephalomalacia with mild gliosis and associated susceptibility signal, centered in the left cuneus/calcarine fissure. Bilateral multifocal patchy and punctate deep white matter and deep periventricular white matter hyperintense T2 FLAIR signal involving centrum semiovale and chen radiata. Old lacunar infarcts, right thalamus and lenticular nuclei. Flow-void signal within the main cerebral vessels is normal. Sellar/suprasellar region is normal. Craniocervical junction is intact with normal position of the cerebellar tonsils. No signal abnormality or mass effect in the posterior cranial fossa contents. No signal abnormality or volume loss in the hippocampi. Prominence of the extra-axial CSF spaces cerebral sulci involving bifrontal parietal lobes. MR/MR head/brain wo con IMPRESSION: No acute brain abnormality. Focal macrocystic encephalomalacia secondary to likely old hemorrhagic infarct left CORE DRILLER territory. Leukoaraiosis. Bifrontal biparietal lobe atrophy, mild to moderate. Electronically signed by: Emanuel Stockton MD 10/05/2025 09:50 AM EST
== END 2025-10-05 07:53 | disposition home or self-care (01) ==
LOC: HO.MRI 07:52
PROVIDERS: PCP Internal Medicine; Visit Provider Internal Medicine
DX: R41.89 Other symptoms and signs involving cognitive functions and awareness (principal)
CPT/HCPCS: 70551

== ENCOUNTER → 2025-10-18 13:48 | Outpatient (REF) | payer OTHER, SELFPAY ==
[2025-10-04 10:53] VITALS: BP 96/60; BP 96/66; BMI 22.5
[2025-10-18 14:06] LABS: MANUAL DIFF FLAG NO
--- NOTE | 2025-10-18 14:06 | ECG_ITS ---
Test Reason : ASHD Blood Pressure : */* mmHG Vent. Rate : 75 BPM Atrial Rate : 75 BPM P-R Int : 148 ms QRS Dur : 86 ms QT Int : 368 ms P-R-T Axes : 74 79 62 degrees QTcB Int : 410 ms Normal sinus rhythm Normal ECG When compared with ECG of 03-Jun-2025 16:28, No significant change was found Referred By: Alicia Yarbrough Electronically Signed By: MICHELL MONTES
[2025-10-18 14:42] LABS: Hematocrit 37.7 % (37.0-47.0); Hemoglobin 12.4 g/dl (12.0-16.0); Imm Gran Abs Auto 0.03 X10*3/uL (0.00-0.03); Imm Gran Pct Auto 0.4 % (0.0-0.4); Lymphocytes Absolute Auto 2.5 X10*3/uL (1.2-4.9); Mean Corpuscular HGB Conc 32.9 g/dl (31.0-35.0); Mean Corpuscular Hemoglobin 28.8 pg (27.0-33.0); Mean Corpuscular Volume 87.5 fL (80.0-98.0); NRBC Abs Auto 0.000 X10*3/uL (0.0-0.012); NRBC Pct Auto 0.0 /100WBC (0.0-0.2); Platelet Count 307 X10*3/uL (160-400); Red Blood Count 4.31 X10*6/uL (4.20-5.50); White Blood Count 7.0 X10*3/uL (4.8-10.8)
[2025-10-18 15:19] LABS: Alanine Aminotransferase 12 U/L (0-31); Albumin Level 4.0 g/dL (3.5-5.0); Alkaline Phosphatase 64 U/L (39-117); Anion Gap 10 (12-20); Aspartate Amino Transferase 16 U/L (5-31); Blood Urea Nitrogen 10 mg/dL (9-16); Calcium 9.0 mg/dL (8.4-10.2); Carbon Dioxide 25 mmol/L (22-29); Chloride 111 mmol/L (96-108); Estimated Glomerular Filt Rate > 60; Potassium 4.0 mmol/L (3.3-5.1); Sodium 142 mmol/L (135-145); Total Protein 6.7 g/dL (6.5-8.0)
--- OUTSIDE RECORDS SUMMARY | 2025-10-18 17:18 | XMS_ITS | Clinical Summary ---
Author Organization [facility] Address [address] [address] Phone Care Team Providers Care Tear Down Worker Name Role Phone Unavailable Primary Care Provider [...] It is not the complete legal health record.[facility]
== END ==
LOC: HO.CARD 13:48
PROVIDERS: Absent Provider Clinical Nurse Specialist Psychiatric/Mental Health; PCP Internal Medicine; Visit Provider Student in an Organized Health Care Education/Training Program
DX: I10 Essential (primary) hypertension (principal); I25.10 Atherosclerotic heart disease of native coronary artery without angina pectoris; Z79.899 Other long term (current) drug therapy
CPT/HCPCS: 36415; 80053; 85025; 85652; 86140; 93005

== ENCOUNTER → 2025-10-18 14:06 | Outpatient (BNV) | payer OTHER, SELFPAY ==
[2025-10-04 10:53] VITALS: BP 96/60; BP 96/66; BMI 22.5
== END ==
PROVIDERS: Absent Provider Clinical Nurse Specialist Psychiatric/Mental Health; PCP Internal Medicine; Visit Provider Internal Medicine
DX: I25.10 Atherosclerotic heart disease of native coronary artery without angina pectoris (principal)
CPT/HCPCS: 93010

== ENCOUNTER 2025-10-27 11:00 | Outpatient (AMB) | payer OTHER, SELFPAY ==
--- NOTE | 2025-10-27 11:12 | A.OFFVIS_ITS ---
Vital Signs 10/27/25 11:17 Height 4 ft 10 in Weight 100 lb 12.02 oz BMI 21.1 BP 115/72 Blood Pressure Location Lt brachial Position Sitting Pulse 73 Pulse Source Pulse Oximeter Pulse Oximetry (%) 98 Oxygen Delivery Method Room Air Intake Visit Reasons: follow up Intake Note: Patient presents for RA follow up and test results. 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 Required: No Information Interpreted: non-clinical & clinical Accompanied by: Self / Same As Patient Allergies methylprednisolone Allergy (Severe, Verified 10/27/25 11:17) Rash from Solu-Medrol shellfish derived Allergy (Intermediate, Verified 10/27/25 11:17) Hives etanercept (From Enbrel) Adverse Reaction (Severe, Verified 10/27/25 11:17) Facial Swelling metformin Adverse Reaction (Severe, Verified 10/27/25 11:17) Diarrhea metronidazole (From FLAGYL) Adverse Reaction (Severe, Verified 10/27/25 11:17) Diarrhea prednisone Adverse Reaction (Intermediate, Verified 10/27/25 11:17) hallucinations, more than 20 mg doses Medication List - Last Reconciled 10/27/25 by Jeanette Rain MD albuterol sulfate 90 mcg/actuation 2 inhalations inhalation Q4H PRN aspirin 81 mg PO DAILY blood pressure monitor As directed blood pressure test kit-medium As directed blood sugar diagnostic (FreeStyle Lite Strips) Use 1 test strip three times a day adeerbnvvm-kcbqjsupfzvsp-gfjh 50-325-40 mg 1 tab PO Q6H PRN cephalexin 500 mg PO Q8H [clamp on tub safety rail As directed] clopidogrel 75 mg PO DAILY [ez awning assembler bed assist support As directed] famotidine 20 mg PO BEDTIME 90 days imluoxbvewi-xcaovajga-bbcfawsu 200-62.5-25 mcg (Trelegy Ellipta) 1 ea inhalation DAILY folic acid 1 mg PO DAILY hydroxychloroquine (Plaquenil) 200 mg PO DAILY lancets (FreeStyle Lancets) Use 1 lancet once a day lidocaine 5% (Lidoderm) 1 patch topical DAILY linaclotide (Linzess) 145 mcg PO QAM 30 days lithium carbonate 150 mg PO BID mecobalamin (vitamin B12) 1,000 mcg PO DAILY methotrexate sodium 17.5 mg (7 x 2.5 mg) PO QWEEK 90 days metoprolol succinate ER 25 mg PO DAILY pantoprazole 40 mg PO DAILY pen needle, diabetic USE 1 PEN NEEDLE 6 TIMES A DAY pregabalin 200 mg PO BID quetiapine 25 mg PO BEDTIME rizatriptan 10 mg PO Q2-4H PRN 30 days Shower Chair As directed tramadol 50 mg PO BID 30 days trazodone 100 mg PO BEDTIME 90 days walker with seat HPI Comments Details: Patient is a 65-year-old female with hx of breast cancer completed anastrozole, diabetes complicated by polyneuropathy, hypertension complicated by STEMI 10/2024 with stenting and peripheral arterial disease, hyperlipidemia, bipolar 1 disorder with depression, hyperparathyroidism, osteoporosis on Reclast infusions with Endo, seropositive rheumatoid arthritis and fibromyalgia here today for follow up Interval History: Patient last seen 04/27/2025 with me. - On methotrexate 15mg weekly, folic acid 1mg daily, Hydroxychloroquine 200mg da isd[place] - Since the last visit she unfortunately had a fall in February with subsequent fracture to her wrist. - She is currently in a sling and is planning to follow up with Orthopedics because she continued to have wrists pain and had see T imaging showing multiple fractures and tendonitis. - She is unable to comment on whether or not the hydroxychloroquine helped her because of her current pain Today - On methotrexate 15mg weekly, folic acid 1mg daily, Hydroxychloroquine 200mg daily - On Reclast infusions from endocrinology (last dose 10/2025) - Since the last visit, wrist is doing better - Feels like the regimen is helpful - Still complaining of back pain. PT does not help and pain management is also not helpful Rheumatologic History: +++RF+++CCP dx around 1999 [place]: 04/2021- 06/2022- stopped due to severe COPD requiring long standing azithromycin Plaquenil: approx. 02/2021-May 2021 self stopped Enbrel: approx. 02/2021 ordered after cleared for hep A, stopped due to allergy Sulfasalazine: approx. 02/2019- 02/2021 - restarted 09/27/2022 -04/2023 stopped due to heaedache and nausea Methorexate: approx. 11/2016-12/2018 [place] [facility] [place] with breast CA so methotrexate discontinued. Changed to sulfsalazine 500mg 2 tabs BID to prevent lung fibrosis as patient was receiving radiation therapy for her breast CA. Completed Radiation therapy February 2019. OnTamoxifen but had side effects so was started on Letrozole in May 2019. MTX restarted 02/2024 Xeljanz: approx. 03/2018-04/2018 Cimzia: aprrox.05/2017- did not take Humira: dates unknown Leflunomide: many years ago, then approx. 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 Acute respiratory distress Tendonitis of ankle or foot Cough Stable angina Anxiety HLD (hyperlipidemia) HTN (hypertension) COPD exacerbation Hyperkalemia Atherosclerotic cardiovascular disease Hospital discharge follow-up Colitis CVA (cerebral vascular accident) (~2017) Breast pain, right Rash Bloody diarrhea PAD (peripheral artery disease) Hyperlipidemia LDL goal <100 COPD (chronic obstructive pulmonary disease) Infiltrating ductal carcinoma of left breast, stage 2 Insomnia Dyslipidemia Bipolar 1 disorder, depressed Cough Restrictive airway disease Hypothyroid IDDM (insulin dependent diabetes mellitus) Vitamin D deficiency Osteoporosis Breast cancer Hyperparathyroidism Thyroid nodule T2DM (type 2 diabetes mellitus) Depression Fibromyalgia Seropositive rheumatoid arthritis Reactive airways dysfunction syndrome Allergic rhinitis Irritable bowel Anxiety Bronchial asthma Diabetes type 2, uncontrolled Surgical History S/P laparoscopic colectomy (04/15/24) Hx of sigmoidoscopy History of bronchoscopy Hx of endoscopy H/O cardiac catheterization History of lumpectomy of left breast History of pubovaginal sling History of esophagogastroduodenoscopy (EGD) History of tubal ligation History of colonoscopy History of bunionectomy of both great toes H/O: hysterectomy Family History Mother Diabetes HTN (hypertension) Uterus cancer Malignant tumor of head Breast cancer Father Diabetes HTN (hypertension) CVD (cardiovascular disease) Heart problem Maternal Aunt Breast cancer Brother Myocardial infarction S/P CABG x 4 Family/Other FH: mental illness Family/Other Lung cancer Other Mental health disorder Social History Household Members: Family Household Members Other:: sister Housing: House Are you a primary careers adviser to a significant other at home: No Do you presently have visiting nurse or other home services: No Alcohol intake: never Comment: Low fall Patient Tobacco Use Status: Current everyday Tobacco user Tobacco use type: Cigarette Cigarette Packs Per Day: 0.5 Cigarettes Per Day: 4 Years Smoked: 48 e-Cigarette/Vaping Use: Never Used Second Hand Smoke Exposure: Yes Substance Use Type: Marijuana Advance Directives Date on File: 12/22/21 service: No Current occupational status: disabled Current occupation: rt handed Cognitive needs: No Hearing needs: No Vision needs: Yes Review of Systems Narrative Review of Systems Constitutional: Denies fever, chills, weight loss ENT: Denies vision changes, eye pain or eye redness, dental caries, dry mouth GI: Denies nausea, vomiting, diarrhea, abdominal pain, change in BM Pulm: Denies SOB, JAFFE, hemoptysis, wheezing Cards: Denies chest pain, palpitations Skin: Denies Raynaud's, rash, nail changes, photosensitivity, 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 Well appearing and in no apparent painful distress MSK Hands * Right Hand: Able to make a fist. No swelling or tenderness to palpation of the MCPs, PIPs or DIPs. * Left Hand: Able to make a fist. No swelling or tenderness to palpation of the MCPs, PIPs or DIPs. * Herbedens nodes noted bilaterally Wrists * Right Wrist: Full ROM to flexion and extension. No swelling or TTP * Left Wrist: Full ROM to flexion and extension. No swelling or TTP Elbows * Right Elbow: Full ROM. No swelling or TTP. No TTP of the medial epicondyle. No TTP of the lateral epicondyle * Left Elbow: Full ROM. No swelling or TTP. No TTP of the medial epicondyle. No TTP of the lateral epicondyle Shoulders * Right shoulder: Full ROM. No swelling noted. No TTP of the AC joint. No TTP of the subacromial bursa. No TTP of the posterior shoulder * Left shoulder: Full ROM. No swelling noted. No TTP of the AC joint. No TTP of the subacromial bursa. No TTP of the posterior shoulder Knees * Right knee: Full ROM. No swelling noted. No TTP of the knee joint line. No TTP of pes anserine bursa * Left knee: Full ROM. No swelling noted. No TTP of the knee joint line. No TTP of pes anserine bursa. * Crepitations felt bilaterally Ankles * Right ankle: Good ankle dorsiflexion and plantar flexion. No swelling. No TTP of the ankle joint * Left ankle: Good ankle dorsiflexion and plantar flexion. No swelling. No TTP of the ankle joint Feet * Right foot: Negative squeeze test * Left foot: Negative squeeze test Tender points? * No tenderness to palpation of the bilateral trapezius, supraspinatus, anterior costochondral junctions, bilateral suboccipital muscle insertions SKIN No rashes Vital Signs: Last Vital Signs Pulse 73 10/27/25 11:17 BP 115/72 10/27/25 11:17 Pulse Ox 98 10/27/25 11:17 Oxygen Delivery Method Room Air 10/27/25 11:17 BMI result Body Mass Index 21.1 Results Reviewed Results Reviewed: Laboratory Tests 09/03/25 10/18/25 10/25/25 09:01 14:05 14:16 WBC 7.7 RBC 4.35 Hgb 12.2 Hct 37.9 Plt Count 301 ESR 13 Sodium 140 Potassium 4.5 Chloride 108 Carbon Dioxide 27 BUN 11 Creatinine 0.66 AST 17 ALT 14 C-Reactive Protein 0.13 25-OH Vitamin D Total 39.0 Laboratory Tests 06/09/19 06/09/19 11:05 18:43 Rheumatoid Factor 289.6 H ARRON Screen Negative Laboratory Tests 04/15/25 13:16 Hepatitis A IgM Ab Nonreactive Hep Bs Antigen Negative Hep Bs Antibody NONREACTIVE Hep B Core Total Ab Nonreactive Hepatitis C Ab (EIA) Nonreactive TB Test (T-Spot) Com Negative CT L Spine 01/2025 FINDINGS: Normal curvature of the lumbar spine. Vertebral body heights are maintained. Suture material present along the partially visualized distal sigmoid colon. L5-S1: Mild disc space height loss. Facet joint arthrosis. Mild posterior disc bulge. No significant neural foraminal narrowing. L4-L5: Mild posterior disc bulge. Mild right neural foraminal narrowing. L3-L4: Mild posterior disc bulge. No significant neural foraminal narrowing. L2-L3: Intervertebral disc is normal in height. No significant disc bulge or central canal stenosis. L1-L2: Intervertebral disc is normal in height. No significant disc bulge or central canal stenosis. IMPRESSION: 1. No acute osseous or alignment abnormality of the lumbar spine. 2. Mild degenerative changes of the lumbar spine. CT T Spine 01/2025 FINDINGS: Normal curvature of the thoracic spine. No evidence of vertebral body subluxation. Vertebral body heights are maintained. The thoracic disc spaces are preserved. Small anterior marginal osteophytes along the mid to lower thoracic spine. Schmorl's node at the superior endplate of T11. Mild facet joint arthrosis T8-T9, T9-T10 and T10-T11. Coronary artery calcifications and/or stents present within the LAD and circumflex. IMPRESSION: 1. No acute osseous or alignment abnormality of the thoracic spine. 2. Mild degenerative changes of the thoracic spine. CT C Spine 01/2025 FINDINGS: Straightening of the normal cervical lordosis. Vertebral body heights are maintained. Skull base and intracranial structures appear normal. Calcified plaque present at the carotid bulbs bilaterally. C2-C3: Facet joint arthrosis on the left. No significant neural foraminal narrowing. C3-C4: No significant neuroforaminal narrowing or spinal canal stenosis. C4-C5: Facet joint arthrosis on the right. No significant neural foraminal narrowing. C5-C6: Anterior marginal osteophytes. Facet joint arthrosis on the right. No significant neural foraminal narrowing. C6-C7: Anterior marginal osteophytes. IMPRESSION: 1. Straightening of the normal cervical lordosis. 2. Mild cervical spondylosis. DEXA 05/2025 FINDINGS: The bone mineral density of the lumbar spine is 0.914 g/cm2, corresponding to a T-score of -2.2, and a Z-score of -0.2. This is indicative of osteopenia. This represents a BMD change of -2.1% compared to the prior exam. This is not statistically significant. The bone mineral density of the left total hip is 0.811 g/cm2, corresponding to a T-score of -1.6, and a Z-score of -0.1. This is indicative of osteopenia. This represents a BMD change of -6.7% compared to the prior exam. This is statistically significant. The bone mineral density of the left femoral neck is 0.742 g/cm2, corresponding to a T-score of -2.1, and a Z-score of -0.4. This is indicative of osteopenia. This represents a BMD change of -4.0% compared to the prior exam. The bone mineral density of the distal radius is 0.657 g/cm2, corresponding to a T-score of -2.5, and a Z-score of -1.3. This is indicative of osteoporosis. This represents a BMD change of -2.7% compared to the prior exam. This is not statistically significant. Assessment & Plan Assessment & Plan (1) Seropositive rheumatoid arthritis: Comment: +++RF+++CCP dx around 1999 [place]: 04/2021- 06/2022- stopped due to severe COPD requiring long standing azithromycin Plaquenil: approx. 02/2021-May 2021 self stopped Enbrel: approx. 02/2021 ordered after cleared for hep A, stopped due to allergy Sulfasalazine: approx. 02/2019- 02/2021 - restarted 09/27/2022 -04/2023 stopped due to heaedache and nausea Methorexate: approx. 11/2016-12/2018 [place] [facility] [place] Diagnosed with breast CA so methotrexate discontinued. Changed to sulfsalazine 500mg 2 tabs BID to prevent lung fibrosis as patient was receiving radiation therapy for her breast CA. Completed Radiation therapy February 2019. OnTamoxifen but had side effects so was started on Letrozole in May 2019. MTX restarted 02/2024 Xeljanz: approx. 03/2018-04/2018 Cimzia: aprrox.05/2017- did not take Humira: dates unknown Leflunomide: many years ago, then approx. 08/2020-02/2021 Added plaquenil 04/2025 Code(s): M05.9 - Rheumatoid arthritis with rheumatoid factor, unspecified Category: Medical Plan: #Seropositive RA Patient is a 65-year-old female with seropositive rheumatoid arthritis Currently in remission Plan - Plaquenil 200mg daily - Mtx 15mg weekly - Folic acid 1mg daily - RTC 6 months - Labs before visit: CBC, CMP, ESR, CRP (2) Osteoporosis: Comment: DEXA 04/2023: AP Spine -2.1, Left femur neck -1.9, Left femur total -1.1 DEXA 05/2025: AP Spine -2.2, Left femur neck -1.6, Left femur total -2.1 On Reclast since 2022 Code(s): M81.0 - Age-related osteoporosis without current pathological fracture Category: Medical Qualifiers: Osteoporosis type: age-related Presence of current pathological fracture: without current pathological fracture Qualified Code(s): M81.0 - Age- related osteoporosis without current pathological fracture Plan: Osteoporosis Patient with osteoporosis, on Reclast that was started by Endocrine, but she is no longer following with Endocrinology Repeat bone density shows worsening disease Will need to switch to prolia Plan - Stop IV Reclast - Start Prolia 60mg every 6 months, will need to wait atleast 6-8 months since she recently got the Reclast infusion - Will do PA at the next visit (3) Thoracic spine pain: Code(s): M54.6 - Pain in thoracic spine Category: Medical Plan: #Thoracic and Cervical Pain Patient complaining of thoracic and C-spine pain CT confirms degenerative disease Will continue tramadol since it is efficacious for her Plan - Tramadol 50mg bid (4) group home methotrexate user: Code(s): Z79.631 - group home (current) use of antimetabolite agent Plan: #Long-term Current Use of Methotrexate Discussed with patient the benefits and risks of methotrexate for managing their rheumatic condition Benefits include reduced pain, reduced mortality, maintenance of remission and reduction of flares Risks include oral ulcers, photosensitivity, hepatotoxicity, hematologic toxicity, pneumonitis, flu-like symptoms (especially day after administration), nodulosis, lymphomas ? Limit alcohol and avoid Bactrim ? 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 (current) drug therapy Plan: #Long-term Use of Hydroxychloroquine Discussed with patient the risks and benefits of hydroxychloroquine in managing the rheumatic condition Benefits include: - Reduced pain, reduce mortality, maintenance of remission and reduction of flares Risks include: - GI upset, skin hyperpigmentation, retinal toxicity (especially after more than 5 years of use), myopathy Advised yearly ophthalmology visits: patient looking for ophthalmology Plan I spent 30 minutes reviewing the record and labs, taking a history, examining the patient, discussing the treatment plan and documenting in the medical record Orders: Orders Comprehensive Met. Panel 6 Months E55.9 - Vitamin D deficiency, unspecified, Z79.899 - Other assistant terminal manager (current) drug therapy Complete Blood Count Auto Diff 6 Months E55.9 - Vitamin D deficiency, unspecified, Z79.899 - Other halfway (current) drug therapy C Reactive Protein 6 Months E55.9 - Vitamin D deficiency, unspecified, Z79.899 - Other assistant terminal manager (current) drug therapy Erythrocyte Sedimentation Rate 6 Months E55.9 - Vitamin D deficiency, unspecified, Z79.899 - Other assistant terminal manager (current) drug therapy Vitamin D 25-OH Total 6 Months E55.9 - Vitamin D deficiency, unspecified Medications: Refilled folic acid 1 mg PO DAILY 90 tabs 1RF Z79.61 - terminal superintendent (current) use 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 hydroxychloroquine (Plaquenil) 200 mg PO DAILY 90 tabs 1RF M05.9 - Rheumatoid arthritis with rheumatoid factor, unspecified methotrexate sodium 17.5 mg (7 x 2.5 mg) PO QWEEK 91 tabs 1RF 90 days M05.9 - Rheumatoid arthritis with rheumatoid factor, unspecified pregabalin 200 mg PO BID 60 caps 4RF M05.9 - Rheumatoid arthritis with rheumatoid factor, unspecified tramadol 50 mg PO BID 60 tabs 5RF pain 30 days M51.36 - Other intervertebral disc degeneration, lumbar region Coding Level of Care Code Est Pt Level 4 (64603) Add On Problem Visit Only Diagnoses Seropositive rheumatoid arthritis M05.9 Age-related osteoporosis without current pathological fracture M81.0 Osteoporosis type: age-related Presence of current pathological fracture: without current pathological fracture Thoracic spine pain M54.6 group home methotrexate user Z79.631 Long-term use of hydroxychloroquine Z79.899
[2025-10-27 11:17] VITALS: BP 115/72; PULSE 73; O2SAT 98; BMI 21.1
== END 2025-10-27 11:49 | disposition home or self-care (01) ==
LOC: HO.RHES 11:02
PROVIDERS: PCP Internal Medicine; Visit Provider Student in an Organized Health Care Education/Training Program
DX: M05.9 Rheumatoid arthritis with rheumatoid factor, unspecified (principal); M81.0 Age-related osteoporosis without current pathological fracture; M54.6 Pain in thoracic spine; Z79.631 Long term (current) use of antimetabolite agent; Z79.899 Other long term (current) drug therapy
CPT/HCPCS: 99214; G2211

== ENCOUNTER → 2025-10-27 11:00 | Outpatient (BNVA) | payer OTHER, SELFPAY ==
[2025-10-04 10:53] VITALS: BP 96/60; BP 96/66; BMI 22.5
== END ==
PROVIDERS: PCP Internal Medicine; Visit Provider Student in an Organized Health Care Education/Training Program
DX: M81.0 Age-related osteoporosis without current pathological fracture (principal); M85.89 Other specified disorders of bone density and structure, multiple sites; M05.9 Rheumatoid arthritis with rheumatoid factor, unspecified; M54.6 Pain in thoracic spine; Z51.81 Encounter for therapeutic drug level monitoring; Z79.631 Long term (current) use of antimetabolite agent; Z79.899 Other long term (current) drug therapy; F17.210 Nicotine dependence, cigarettes, uncomplicated; Z85.3 Personal history of malignant neoplasm of breast
CPT/HCPCS: 99212

== ENCOUNTER 2025-10-29 08:23 | Outpatient (AMB) | payer OTHER, SELFPAY ==
--- NOTE | 2025-10-29 08:32 | MHC.OFFVIS ---
Vital Signs 10/29/25 08:35 Height 4 ft 10 in Weight 95 lb BMI 19.9 Intake Visit Reasons: OV- Follow up for Lumbar pain radiating RT hip Intake Note: Sosa is a 65 year old female who presents today as a follow up from her injection in her right hip, 08/06/25. At last visit the patient requested to have her shoulder looked at, possibly inject as well. At today's visit she states that the injection did give relief and felt like the pain was getting better. She noted that last night is when the right hip pain started to flair. Patient would like to add that her bilateral shoulder pain is doing much better. Allergies methylprednisolone Allergy (Severe, Verified 10/27/25 11:17) Rash from Solu-Medrol shellfish derived Allergy (Intermediate, Verified 10/27/25 11:17) Hives etanercept (From Enbrel) Adverse Reaction (Severe, Verified 10/27/25 11:17) Facial Swelling metformin Adverse Reaction (Severe, Verified 10/27/25 11:17) Diarrhea metronidazole (From FLAGYL) Adverse Reaction (Severe, Verified 10/27/25 11:17) Diarrhea prednisone Adverse Reaction (Intermediate, Verified 10/27/25 11:17) hallucinations, more than 20 mg doses Medication List - Last Reconciled 10/29/25 by Hannah Ruffin MD albuterol sulfate 90 mcg/actuation 2 inhalations inhalation Q4H PRN aspirin 81 mg PO DAILY blood pressure monitor As directed blood pressure test kit-medium As directed blood sugar diagnostic (FreeStyle Lite Strips) Use 1 test strip three times a day xjuahvcbbg-iuhmvluyyyznd-bnqf 50-325-40 mg 1 tab PO Q6H PRN cephalexin 500 mg PO Q8H [clamp on tub safety rail As directed] clopidogrel 75 mg PO DAILY [[facility] 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 assist support As directed] famotidine 20 mg PO BEDTIME 90 days xjrwxvennyi-fxtcsswpe-xqaroxym 200-62.5-25 mcg (Trelegy Ellipta) 1 ea inhalation DAILY folic acid 1 mg PO DAILY hydroxychloroquine (Plaquenil) 200 mg PO DAILY lancets (FreeStyle Lancets) Use 1 lancet once a day lidocaine 5% (Lidoderm) 1 patch topical DAILY linaclotide (Linzess) 145 mcg PO QAM 30 days lithium carbonate 150 mg PO BID mecobalamin (vitamin B12) 1,000 mcg PO DAILY methotrexate sodium 17.5 mg (7 x 2.5 mg) PO QWEEK 90 days metoprolol succinate ER 25 mg PO DAILY pantoprazole 40 mg PO DAILY pen needle, diabetic USE 1 PEN NEEDLE 6 TIMES A DAY pregabalin 200 mg PO BID quetiapine 25 mg PO BEDTIME rizatriptan 10 mg PO Q2-4H PRN 30 days Shower Chair As directed tramadol 50 mg PO BID 30 days trazodone 100 mg PO BEDTIME 90 days walker with seat HPI Comments Details: Hx of breast cancer completed anastrozole, diabetes complicated by polyneuropathy, hypertension complicated by STEMI 10/2024 with stenting and peripheral arterial disease, hyperlipidemia, bipolar 1 disorder with depression, hyperparathyroidism, osteoporosis on Reclast infusions with Endo, seropositive rheumatoid arthritis and fibromyalgia. She follows with rheumatology and pain management. She is maintained on tramadol and Lyrica. This visit had right GT injection 08/06/2025. It worked well without complications, was good up until today. Though tolerable, not as bad. Shoulders are good, good ROM. Chronic back pain. She has this right sided pain, back/ hip ? down to thigh. 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 Acute respiratory distress Tendonitis of ankle or foot Cough Stable angina Anxiety HLD (hyperlipidemia) HTN (hypertension) COPD exacerbation Hyperkalemia Atherosclerotic cardiovascular disease Hospital discharge follow-up Colitis CVA (cerebral vascular accident) (~2018) Breast pain, right Rash Bloody diarrhea PAD (peripheral artery disease) Hyperlipidemia LDL goal <100 COPD (chronic obstructive pulmonary disease) Infiltrating ductal carcinoma of left breast, stage 2 Insomnia Dyslipidemia Bipolar 1 disorder, depressed Cough Restrictive airway disease Hypothyroid IDDM (insulin dependent diabetes mellitus) Vitamin D deficiency Osteoporosis Breast cancer Hyperparathyroidism Thyroid nodule T2DM (type 2 diabetes mellitus) Depression Fibromyalgia Seropositive rheumatoid arthritis Reactive airways dysfunction syndrome Allergic rhinitis Irritable bowel Anxiety Bronchial asthma Diabetes type 2, uncontrolled Surgical History S/P laparoscopic colectomy (04/15/24) Hx of sigmoidoscopy History of bronchoscopy Hx of endoscopy H/O cardiac catheterization History of lumpectomy of left breast History of pubovaginal sling History of esophagogastroduodenoscopy (EGD) History of tubal ligation History of colonoscopy History of bunionectomy of both great toes H/O: hysterectomy Family History Mother Diabetes HTN (hypertension) Uterus cancer Malignant tumor of head Breast cancer Father Diabetes HTN (hypertension) CVD (cardiovascular disease) Heart problem Maternal Aunt Breast cancer Brother Myocardial infarction S/P CABG x 4 Family/Other FH: mental illness Family/Other Lung cancer Other Mental health disorder Social History Household Members: Family Household Members Other:: sister Housing: House Are you a primary college and career counselor to a significant other at home: No Do you presently have visiting nurse or other home services: No Unable to assess alcohol history related to: Unknown Alcohol intake: never Comment: Low fall Patient Tobacco Use Status: Current everyday Tobacco user Tobacco use type: Cigarette Cigarette Packs Per Day: 0.5 Cigarettes Per Day: 4 Years Smoked: 48 e-Cigarette/Vaping Use: Never Used Second Hand Smoke Exposure: Yes Substance Use Type: Marijuana Advance Directives Date on File: 12/22/21 service: No Current occupational status: disabled Current occupation: rt handed Cognitive needs: No Hearing needs: No Vision needs: Yes Physical Exam Exam Exam: No more point tenderness over right GT. To some tenderness over right piriformis. No tenderness over SI. Bilateral shoulders full range of motion, negative Reyes sign. Vital Signs: BMI result Body Mass Index 19.9 Results Reviewed Results Reviewed: Ordering Physician: Rossi Weaver APRN, CNP Date of Service: 07/08/25 Procedure(s): XR hip RT min 2V Accession Number(s): [id number] cc: Rossi Weaver APRN, LEDA; Adela Gipson MD~ EXAMINATION: XR HIP, RIGHT CLINICAL INFORMATION: M25.551 - Pain in right hip COMPARISON: None available. TECHNIQUE: AP and frog-leg lateral views of the right hip. FINDINGS: Right hip joint space is congruent and preserved. Small marginal osteophyte is noted at the acetabular roof. Surgical changes are present in the central pelvis with metallic clips likely from a bowel anastomosis. XR/XR hip RT min 2V IMPRESSION: Minimal osteophyte formation along the acetabular roof with preservation of the right hip joint space Electronically signed by: Checo Jett MD 07/08/2025 10:29 AM EDT RP I reviewed records from the following: Rheumatology PCP Pain management Assessment & Plan Assessment & Plan (1) Seropositive rheumatoid arthritis: Comment: +++RF+++CCP dx around 1999 [place]: 04/2021- 06/2022- stopped due to severe COPD requiring long standing azithromycin Plaquenil: approx. 02/2021-May 2021 self stopped Enbrel: approx. 02/2021 ordered after cleared for hep A, stopped due to allergy Sulfasalazine: approx. 02/2019- 02/2021 - restarted 09/27/2022 -04/2023 stopped due to heaedache and nausea Methorexate: approx. 11/2016-12/2018 [place] [facility] [place] Diagnosed with breast CA so methotrexate discontinued. Changed to sulfsalazine 500mg 2 tabs BID to prevent lung fibrosis as patient was receiving radiation therapy for her breast CA. Completed Radiation therapy February 2019. OnTamoxifen but had side effects so was started on Letrozole in May 2019. MTX restarted 02/2024 Xeljanz: approx. 03/2018-04/2018 Cimzia: aprrox.05/2017- did not take Humira: dates unknown Leflunomide: many years ago, then approx. 08/2020-02/2021 Added plaquenil 04/2025 Code(s): M05.9 - Rheumatoid arthritis with rheumatoid factor, unspecified Category: Medical Plan Did well after right GT injection last August. No indication/need for repeat injection today. We will continue to watch her right piriformis. Continue exercises at home. Follows with Rheumatology. She will call in November if there is need for repeat injection. Assessment and plan discussed with patient, and patient was agreeable. All questions were answered thoroughly. Hannah Ruffin MD, JUAN M Board Certified, [place] [employer] and [employer] (ABPMR) Board Certified, [place] [employer] Electro[employer] (ABEM) Coding Level of Care Code Est Pt Level 3 (06839) Diagnoses Seropositive rheumatoid arthritis M05.9
[2025-10-29 08:35] VITALS: BMI 19.9
== END 2025-10-29 08:44 | disposition home or self-care (01) ==
LOC: HO.HOS 08:24
PROVIDERS: PCP Internal Medicine; Visit Provider Physical Medicine & Rehabilitation
DX: M05.79 Rheumatoid arthritis with rheumatoid factor of multiple sites without organ or systems involvement (principal)
CPT/HCPCS: 99213

== ENCOUNTER → 2025-10-29 08:23 | Outpatient (BNVA) | payer OTHER, SELFPAY ==
[2025-10-04 10:53] VITALS: BP 96/60; BP 96/66; BMI 22.5
== END ==
PROVIDERS: PCP Internal Medicine; Visit Provider Physical Medicine & Rehabilitation
DX: M05.9 Rheumatoid arthritis with rheumatoid factor, unspecified (principal)
CPT/HCPCS: 99212

== ENCOUNTER 2025-11-11 12:06 | Emergency (ER) | payer OTHER, SELFPAY ==
--- NOTE | ~2025-11-11 | XR_ITS ---
CLINICAL HISTORY: upper back pain 2 view chest x-ray. Comparison: CR/SR - XR CHEST 2 VIEWS - 12/18/24 15:53 EST Findings: Heart size is normal. No consolidation or effusion. No acute fracture. The visualized upper abdomen is unremarkable. Impression: No acute cardiopulmonary process. This document has been electronically signed by: Nida Aragon MD on 11/11/2025 13:19:02
[2025-11-11 12:10] VITALS: BP 148/65; PULSE 86; RESP 18; TEMP 36.6; O2SAT 98; BMI 20.5
--- NOTE | 2025-11-11 12:12 | ED_ITS ---
HPI - General Adult General Chief complaint: Back Pain/Injury Stated complaint: left sided pain Time Seen by Provider: 11/11/25 12:52 History of Present Illness HPI narrative: 65-year-old female with medical history of rheumatoid arthritis, osteoporosis, HTN, HLD, PAD, COPD, asthma, bipolar 1, hypothyroidism, hyperparathyroidism, T2DM, fibromyalgia, depression, anxiety, presents to the ED due to 1 day of back pain, and 2 weeks of productive cough and vaginal itching. Patient reports she was turning in bed last night when she had sudden onset pain of the left cervical spinal muscles that radiated to the left shoulder, down the left side lumbar paraspinal muscles and radiating down the posterior left leg. Patient states she has a history of chronic lumbar back pain and fibromyalgia and this muscle spasm feels exactly like prior muscle spasms, denies fall/trauma/injury or increased physical activity. Patient also reports having a productive cough over the last 2 weeks that has made the shoulder pain worse due to coughing fits. Additionally, patient reports foul smelling urine with vaginal puritis and increased white, thick vaginal discharge over the past week. Denies recent travel, sick contacts, saddle paresthesias, bowel/bladder incontinence, fevers, chills chest pain, shortness of breath, difficulty breathing, abdominal pain, nausea, vomiting, headaches, visual changes, diarrhea, black/tarry stool MD complaint: Left-sided neck/back pain, productive cough, vaginal pruritus Related Data Home Medications ?Medication ?Instructions ?Recorded ?Confirmed albuterol sulfate 90 mcg/actuation 2 inh inhalation Q4 H PRN Shortness 08/23/23 10/29/25 aerosol inhaler Of Breath Or Wheezing Previous Rx's ?Medication ?Instructions ?Recorded walker #1 ea 02/08/23 Shower Chair #1 ea 01/15/24 clamp on tub safety rail #1 ea 01/15/24 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 #1 ea 01/15/24 blood pressure monitor #1 ea 11/04/24 blood pressure test kit-medium #1 ea 11/04/24 lancets 28 gauge (FreeStyle #100 ea 12/09/24 Lancets) clopidogrel 75 mg tablet 75 mg PO DAILY #100 tabs linaclotide 145 mcg capsule 145 mcg PO QAM 30 days #30 caps 05/13/25 (Linzess) lidocaine 5 % topical patch 1 patch topical DAILY #15 ea 06/12/25 (Lidoderm) aspirin 81 mg tablet,delayed 81 mg PO DAILY #90 tabs 0 07/15/25 release metoprolol succinate 25 mg 25 mg PO DAILY #90 tabs 06/11 tablet,extended release 24 hr lithium carbonate 150 mg capsule 150 mg PO BID #60 cap s 08/27/25 trazodone 100 mg tablet 100 mg PO BEDTIME 90 days #9 0 tabs 09/17/25 pen needle, diabetic 31 gauge x #100 ea 09/20/25 5/16 famotidine 20 mg tablet 20 mg PO BEDTIME 90 days #90 tabs 09/23/25 rizatriptan 10 mg tablet 10 mg PO Q2-4H PRN migraine 09/28/25 headache 30 days #7 tabs quetiapine 25 mg tablet 25 mg PO BEDTIME #90 tabs cephalexin 500 mg capsule 500 mg PO Q8H #21 caps 10/02 mecobalamin (vitamin B12) 1,000 1,000 mcg PO DAILY #60 ea 10/04/25 mcg lozenges ffxnxgixqn-qvqsqdazsoylf-yypbsvhf 1 tab PO Q6H PRN hae adace #20 tabs 10/11/25 50 mg-325 mg-40 mg tablet fluticasone fur. 200 mcg-umeclid 1 ea inhalation DAILY #28 ea 10/19/25 62.5 mcg-vilant 25 mcg inhalat.powder (Trelegy Ellipta) pantoprazole 40 mg tablet,delayed 40 mg PO DAILY #90 t abs 10/20/25 release folic acid 1 mg tablet 1 mg PO DAILY #90 tabs 10/27 hydroxychloroquine 200 mg tablet 200 mg PO DAILY #90 t abs 10/27/25 (Plaquenil) methotrexate sodium 2.5 mg tablet 17.5 mg (7 x 2.5 mg) PO QWEEK 90 10/27/25 days #91 tabs pregabalin 200 mg capsule 200 mg PO BID #60 caps 10/27 tramadol 50 mg tablet 50 mg PO BID pain 30 days #6 0 tabs 10/27/25 blood sugar diagnostic (FreeStyle #100 ea 11/07/25 Lite Strips) azithromycin 250 mg tablet 250 mg PO DAILY 4 days #4 t abs 11/11/25 cyclobenzaprine 5 mg tablet 5 mg PO BID PRN muscle spa sm #10 11/11/25 tabs prednisone 20 mg tablet 20 mg PO DAILY #5 tabs 11/11 Allergies Allergy/AdvReac Type Severity Reaction Status Date / Time methylprednisolone Allergy Severe Rash from Verified 11/11/25 12:14 Solu-Medrol shellfish derived Allergy Intermediate Hives Verified 11/11/25 12:14 etanercept (From Enbrel) AdvReac Severe Facial Verified 11/11/25 12:14 Swelling metformin AdvReac Severe Diarrhea Verified 11/11/25 12:14 metronidazole (From FLAGYL) AdvReac Severe Diarrhea Verified 11/11/25 12:14 prednisone AdvReac Intermediate hallucinations, Verified 11/11/25 12:14 more than 20 mg doses Review of Systems 2 Review of Systems: Yes all other systems are reviewed and are negative [facility] Past Medical History Attestation statement: The following information was validated with the patient. 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) use 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 Acute respiratory distress Tendonitis of ankle or foot Cough Stable angina Anxiety HLD (hyperlipidemia) HTN (hypertension) COPD exacerbation Hyperkalemia Atherosclerotic cardiovascular disease Hospital discharge follow-up Colitis CVA (cerebral vascular accident) (~2017) Breast pain, right Rash Bloody diarrhea PAD (peripheral artery disease) Hyperlipidemia LDL goal <100 COPD (chronic obstructive pulmonary disease) Infiltrating ductal carcinoma of left breast, stage 2 Insomnia Dyslipidemia Bipolar 1 disorder, depressed Cough Restrictive airway disease Hypothyroid IDDM (insulin dependent diabetes mellitus) Vitamin D deficiency Osteoporosis Breast cancer Hyperparathyroidism Thyroid nodule T2DM (type 2 diabetes mellitus) Depression Fibromyalgia Seropositive rheumatoid arthritis Reactive airways dysfunction syndrome Allergic rhinitis Irritable bowel Anxiety Bronchial asthma Diabetes type 2, uncontrolled Surgical History S/P laparoscopic colectomy (04/15/24) Hx of sigmoidoscopy History of bronchoscopy Hx of endoscopy H/O cardiac catheterization History of lumpectomy of left breast History of pubovaginal sling History of esophagogastroduodenoscopy (EGD) History of tubal ligation History of colonoscopy History of bunionectomy of both great toes H/O: hysterectomy Family History Family History Mother Diabetes HTN (hypertension) Uterus cancer Malignant tumor of head Breast cancer Father Diabetes HTN (hypertension) CVD (cardiovascular disease) Heart problem Maternal Aunt Breast cancer Brother Myocardial infarction S/P CABG x 4 Family/Other FH: mental illness Family/Other Lung cancer Other Mental health disorder Social History Social History Household Members: Family Household Members Other:: sister Housing: House Are you a primary lawn care worker to a significant other at home: No Do you presently have visiting nurse or other home services: No Alcohol intake: never Comment: Low fall Patient Tobacco Use Status: Current everyday Tobacco user Tobacco use type: Cigarette Cigarette Packs Per Day: 0.5 Cigarettes Per Day: 4 Years Smoked: 48 e-Cigarette/Vaping Use: Never Used Second Hand Smoke Exposure: Yes Substance Use Type: Marijuana Advance Directives: Yes Advance Directives on File: Yes Advance Directives Date on File: 12/22/21 Do you have a plan to hurt others: No Plan service: No Current occupational status: disabled Current occupation: rt handed Cognitive needs: No Hearing needs: No Vision needs: Yes Physical Exam ED Vital Signs: Vital Signs - 24 hr 11/11/25 12:10 11/11/25 14:19 11/11/25 14:19 Temperature 98 F Pulse Rate 86 72 74 Respiratory Rate 18 18 16 Blood Pressure 148/65 H 133/63 Pulse Oximetry 98 96 Oxygen Delivery Method Room Air Room Air 11/11/25 16:26 Temperature 98.2 F Pulse Rate 88 Respiratory Rate 16 Blood Pressure 130/59 L Pulse Oximetry 96 Oxygen Delivery Method Room Air BMI result Body Mass Index 20.5 GENERAL APPEARANCE: ?AxOx4, generally well-appearing, no acute distress. HEENT: ?NC, AT. MMM. EOMI, clear conjunctiva, oropharynx clear. NECK: ?Supple without lymphadenopathy.? No stiffness or restricted ROM. TTP of L sided cervical paraspinal muscles and over L trapezius muscle, no overlying skin changes, full ROM intact, SILT intact, no midline cervical spinal tenderness, no bony step offs palpated HEART:? Normal rate and regular rhythm, normal S1/S2, no m/r/g LUNGS:? Mild expiratory wheeze noted, no rhonchi, no increased work of breathing, no accessory muscle use, no pursed lip breathing noted ABDOMEN: ?Soft, nontender, nondistended BACK: No CVAT, no obvious deformity. TTP of left-sided scapula and rotator cuff muscles, positive lift-off test, full ROM intact, SILT, radial pulses 2+, no overlying skin changes, TTP of left lumbar paraspinal muscles, no midline lumbar spinal tenderness, no overlying skin changes or ecchymosis, no bony step-offs palpated, full ROM including extension, flexion, lateral bending, patient able to ambulate with normal gait EXTREMITIES: ?Without cyanosis, clubbing or edema. NEUROLOGICAL: ?Grossly nonfocal. Alert and oriented, moving all 4 extremities. Observed to ambulate with normal gait. Skin: ?Warm and dry without any rash. Course Course Course Narrative: This is a Rapid Medical Examination (RME) performed by Ran Carreno PA-C in triage. Full HPI, ROS, assessment and treatment plan per primary provider in the Main ED. Hx: 65 yo F hx COPD and STEMI here for upper back/lower back and L shoulder pain x2 days. no injury or trauma. worse w/ deep breathing/coughing Plan: labs, ekg, cxr, viral swabs Medications Administered Discontinued Medications Generic Name Dose Route Start Last Admin Trade Name Freq PRN Reason Stop Dose Admin Acetaminophen 975 mg 11/11/25 13:49 11/11/25 13:57 Acetaminophen 325 Mg Tablet PO 11/11/25 13:50 975 mg ONCE ONE Administration Azithromycin 500 mg 11/11/25 16:12 11/11/25 16:25 Azithromycin 500 Mg Tablet PO 11/11/25 16:13 500 mg ONCE ONE Administration Albuterol Sulfate 2.5 mg/ 0 mg 11/11/25 14:08 11/11/25 14:19 Albuterol/Ipratropium 3 ml INHALE 11/11/25 14:09 1 dose ONCE ONE Administration Cyclobenzaprine HCl 5 mg 11/11/25 14:09 11/11/25 15:08 Cyclobenzaprine Hcl 5 Mg Tablet PO 11/11/25 14:10 5 mg ONCE ONE Administration Dexamethasone Sodium Phosphate 10 mg 11/11/25 14:05 11/11/25 15:09 Dexamethasone Sod Phosphate 10 Mg/Ml Vial IVPUSH 11/11/25 14:06 10 mg ONCE ONE Administration Magnesium Sulfate 2 gm in 50 mls @ 150 mls/hr 11/11/25 14:05 11/11/25 15:08 Magnesium Sulfate/H2o IV 11/11/25 14:24 150 mls/hr ONCE ONE Administration Ketorolac Tromethamine 30 mg 11/11/25 13:49 11/11/25 15:10 Ketorolac Tromethamine 30 Mg/Ml Vial IM 11/11/25 13:50 Not Given ONCE ONE Lidocaine 2 patch 11/11/25 14:09 11/11/25 15:08 Lidocaine 4 % Patch Adh..Patch TRANSDERMA 11/11/25 14:10 2 patch ONCE ONE Administration Protocol Medical Decision Making Medical Decision Making MDM Narrative: 65-year-old female with medical history of rheumatoid arthritis, osteoporosis, HTN, HLD, PAD, COPD, asthma, bipolar 1, hypothyroidism, hyperparathyroidism, T2DM, fibromyalgia, depression, anxiety, presents to the ED due to 1 day of back pain, and 2 weeks of productive cough and vaginal itching. Patient turned n bed last night and felt spasm of L sided cervical muscles, and lumbar muscles radiating down posterior L leg. Denies injury/trauma/fall, saddle paresthesias, bowel/bladder incontinence, history of IVDU, fevers, chills VS on initial observation-BP 148/65, pulse rate of 86, respiratory rate of 18, afebrile with oral temp of 98?, O2 saturation 98% on room air. On physical exam patient is well-appearing, nontoxic appearing, lungs with mild expiratory wheeze, no rhonchi noted, no increased work of breathing or accessory muscle use, cardiac exam reveals normal rate and rhythm without murmurs/rubs/gallops, patient is TTP over left-sided cervical paraspinal muscles, and over left-sided trapezius muscle, no midline spinal tenderness, bony step-offs, or overlying skin changes/ecchymosis, patient has tenderness over the left-sided scapula, and rotator cuff muscles with positive lift-off test, TTP of left-sided lumbar paraspinal muscles, without midline spinal tenderness, no overlying skin changes/ecchymosis noted, full ROM intact including flexion, extension, lateral bending, patient is able to ambulate without ataxic/antalgic gait. No focal neurological deficits noted Plan: Labs, UA, vaginitis panel, EKG, CXR, bronchodilator protocol -patient medicated with 2.5 Ventolin, 10 mg Decadron, 2 mg IV magnesium, 975 p.o. Tylenol, 5 mg cyclobenzaprine to treat for wheeze, and back pain EKG reveals NSR, without significant ST-elevation/depression, acute ischemic changes, or lengthened QT, initial troponin WNL at 10.3, 2nd troponin undetectable at <2.7, patient without chest pain less likely ACS Labs reveal leukocytosis of 11, no evidence of anemia, no electrolyte abnormalities, random serum glucose is elevated at 185. VBG WNL. UA without evidence of blood or bacteria in the urine. CXR without infiltrates, consolidations, no acute cardiopulmonary process Patient with 1 day of cervical back pain, lumbar back pain, and aggravated pain of the left shoulder that she describes as her usual muscle spasm pain. No fall, trauma, injury, history of IVDU, saddle paresthesias or bowel/bladder incontinence, patient is afebrile today. Patient with tenderness of the cervical paraspinal muscles into the left-sided trapezius, of the rotator cuff with positive lift-off test, and of lumbar paraspinal muscles without midline spinal tenderness, overlying skin changes/ecchymosis or restricted ROM. Patient was medicated with 2.5 Ventolin, 2 mg IV magnesium, and 10 mg Decadron, 500mg azithromycin (gave 1st dose in ED and discharged with 4 days 250mg) and expiratory wheeze has resolved, patient feels like she can breathe easier at this time. Patient's back pain was medicated with 975 p.o. Tylenol, 5 mg cyclobenzaprine, 2 lidocaine patches with minimal relief of pain. Patient will be discharged home with albuterol inhaler, azithromycin, 5 day course of Flexeril, 5 day course of 20 mg prednisone for lung support to treat for asthma exacerbation and back pain. I have placed referral to [facility] [place] for patient to follow up with as she may need physical therapy and/or further evaluation for positive lift-off test and possible rotator cuff injury. Patient's UA negative for blood or bacteria in the urine, no indication for antibiotic therapy for UTI treatment. Patient with 1 week of vaginal pruritus, patient states she is not sexually active and is not concerned for sexually transmitted infections at this time. I discussed with the patient that her results we will not come back for a few days, patient does not want to be treated for yeast at this time and would like to wait for results to come back before being treated. I stated that we would call her if positive and began antifungals if positive for Lyla. I counseled patient to follow up with her primary care doctor to ensure resolution of her symptoms. I counseled the patient on strict return precautions. Patient feels well enough to go home for self-care today. Patient is in agreement with the plan. Differential Diagnosis Differential Diagnoses: The differential diagnosis associated with the presentation includes ACS Dysrhythmia Electrolyte abnormality Asthma exacerbation Pneumonia UTI Lumbar radiculopathy Cervical strain Admission/Observation Consideration of admission/observation: Escalation of care including admission/observation considered I considered admission however patient without hypoxia, tachycardia, tachypnea, afebrile, no red flag back pain symptoms, no indication for admission at this time Lab Data MDM Lab Attestation statement: I reviewed the patient's lab results. 11/11/25 12:27 11/11/25 12:27 Labs: Lab Results 11/11/25 11/11/25 11/11/25 Range/Units 12:27 14:36 14:43 WBC 11.0 H (4.8-10.8) X10*3/uL RBC 4.32 (4.20-5.50) X10*6/uL Hgb 12.6 (12.0-16.0) g/dl Hct 37.6 (37.0-47.0) % MCV 87.0 (80.0-98.0) fL MCH 29.2 (27.0-33.0) pg MCHC 33.5 (31.0-35.0) g/dl RDW 15.5 (11.0-16.0) % Plt Count 320 (160-400) X10*3/uL MPV 10.4 (9.4-12.3) fL Immature Gran % (Auto) 0.5 H (0.0-0.4) % Neut % (Auto) 71.6 (45-73) % Lymph % (Auto) 19.8 L (20-40) % Morehouse % (Auto) 7.1 (2-11) % Eos % (Auto) 0.5 (0-4) % Baso % (Auto) 0.5 (0-2) % Lymph # (Auto) 2.2 (1.2-4.9) X10*3/uL Morehouse # (Auto) 0.8 (0.1-1.2) X10*3/uL Eos # (Auto) 0.1 (0.0-0.4) X10*3/uL Baso # (Auto) 0.1 (0.0-0.2) X10*3/uL Abs Immat Gran (auto) 0.06 H (0.00-0.03) X10*3/uL Absolute Neuts (auto) 7.9 (2.0-8.3) x10*3/uL Absolute Nucleated RBC 0.000 (0.0-0.012) X10*3/uL Nucleated RBC % (auto) 0.0 (0.0-0.2) /100WBC VBG pH (7.32-7.43) VBG pCO2 mmHg VBG pO2 mmHg VBG HCO3 (22-26) mmol/L VBG O2 Saturation % VBG Base Excess mmol/L Sodium 138 (135-145) mmol/L Potassium 4.4 (3.3-5.1) mmol/L Chloride 108 (96-108) mmol/L Carbon Dioxide 21 L (22-29) mmol/L Anion Gap 13 (12-20) BUN 11 (9-16) mg/dL Creatinine 0.79 (0.5-1.4) mg/dL Estim Creat Clear Calc 47.0 Estimated GFR > 60 Random Glucose 185 H (60-115) mg/dL Calcium 9.2 (8.4-10.2) mg/dL Magnesium 1.8 (1.6-2.6) mg/dL Total Bilirubin 0.2 (0.0-1.0) mg/dL AST 24 (5-31) U/L ALT 12 (0-31) U/L Alkaline Phosphatase 73 (39-117) U/L Troponin I High Sens 10.3 D < 2.7 D (<3.5-17.0) ng/L Total Protein 7.0 (6.5-8.0) g/dL Albumin 4.1 (3.5-5.0) g/dL Lipase 39 (8-78) U/L Urine Color Yellow Urine Appearance Clear Urine pH 8.0 (5.0-9.0) Ur Specific Fleming 1.015 (1.005-1.025) Urine Protein Negative (Neg-Trace) mg/dL Urine Glucose (UA) Negative (Negative) mg/dL Urine Ketones Negative (Negative) mg/dL Urine Blood Negative (Negative) Urine Nitrite Negative (Negative) Ur Leukocyte Esterase Negative (Negative) Influenza Type A (PCR) NEGATIVE (Negative) Influenza Type B (PCR) NEGATIVE (Negative) RSV RNA Qual (PCR) NEGATIVE (Negative) SARS-CoV-2 RNA (RT-PCR) NEGATIVE (Negative) T. vaginalis (PCR) NOT DETECTED (Not Detect) Bact vaginosis (PCR) NEGATIVE (Negative) C. krusei/glabrata (PCR) DETECTED A (Not Detect) Lyla group (PCR) DETECTED A (Not Detect) 11/11/25 Range/Units 14:48 WBC (4.8-10.8) X10*3/uL RBC (4.20-5.50) X10*6/uL Hgb (12.0-16.0) g/dl Hct (37.0-47.0) % MCV (80.0-98.0) fL MCH (27.0-33.0) pg MCHC (31.0-35.0) g/dl RDW (11.0-16.0) % Plt Count (160-400) X10*3/uL MPV (9.4-12.3) fL Immature Gran % (Auto) (0.0-0.4) % Neut % (Auto) (45-73) % Lymph % (Auto) (20-40) % Morehouse % (Auto) (2-11) % Eos % (Auto) (0-4) % Baso % (Auto) (0-2) % Lymph # (Auto) (1.2-4.9) X10*3/uL Morehouse # (Auto) (0.1-1.2) X10*3/uL Eos # (Auto) (0.0-0.4) X10*3/uL Baso # (Auto) (0.0-0.2) X10*3/uL Abs Immat Gran (auto) (0.00-0.03) X10*3/uL Absolute Neuts (auto) (2.0-8.3) x10*3/uL Absolute Nucleated RBC (0.0-0.012) X10*3/uL Nucleated RBC % (auto) (0.0-0.2) /100WBC VBG pH 7.43 (7.32-7.43) VBG pCO2 37 mmHg VBG pO2 47 mmHg VBG HCO3 25 (22-26) mmol/L VBG O2 Saturation 80.0 % VBG Base Excess 1.4 mmol/L Sodium (135-145) mmol/L Potassium (3.3-5.1) mmol/L Chloride (96-108) mmol/L Carbon Dioxide (22-29) mmol/L Anion Gap (12-20) BUN (9-16) mg/dL Creatinine (0.5-1.4) mg/dL Estim Creat Clear Calc Estimated GFR Random Glucose (60-115) mg/dL Calcium (8.4-10.2) mg/dL Magnesium (1.6-2.6) mg/dL Total Bilirubin (0.0-1.0) mg/dL AST (5-31) U/L ALT (0-31) U/L Alkaline Phosphatase (39-117) U/L Troponin I High Sens (<3.5-17.0) ng/L Total Protein (6.5-8.0) g/dL Albumin (3.5-5.0) g/dL Lipase (8-78) U/L Urine Color Urine Appearance Urine pH (5.0-9.0) Ur Specific Fleming (1.005-1.025) Urine Protein (Neg-Trace) mg/dL Urine Glucose (UA) (Negative) mg/dL Urine Ketones (Negative) mg/dL Urine Blood (Negative) Urine Nitrite (Negative) Ur Leukocyte Esterase (Negative) Influenza Type A (PCR) (Negative) Influenza Type B (PCR) (Negative) RSV RNA Qual (PCR) (Negative) SARS-CoV-2 RNA (RT-PCR) (Negative) T. vaginalis (PCR) (Not Detect) Bact vaginosis (PCR) (Negative) C. krusei/glabrata (PCR) (Not Detect) Lyla group (PCR) (Not Detect) Independent Interpretation I performed an independent interpretation of an: EKG and Plain X-Ray Interpretation: I personally interpreted the EKG which reveals normal sinus rhythm without ST- elevation/depression, acute ischemic changes, lengthened QT Vent. Rate : 81 BPM Atrial Rate : 81 BPM P-R Int : 142 ms QRS Dur : 86 ms QT Int : 372 ms P-R-T Axes : 80 75 65 degrees QTcB Int : 432 ms Normal sinus rhythm Normal ECG When compared with ECG of 18-Oct-2025 14:15, No significant change was found I personally interpreted the CXR which was negative for infiltrates, consolidations, pneumothorax, pulmonary edema, pleural effusion, cardiomegaly, I agree with the radiologist's interpretation Radiology Impression Discussion of test interpretation with radiology: I have reviewed the radiologist's reading. Radiologist Impression: CXR Findings: Heart size is normal. No consolidation or effusion. No acute fracture. The visualized upper abdomen is unremarkable. Impression: No acute cardiopulmonary process. This document has been electronically signed by: Nida Aragon MD on 11/11/2025 13:19:02 Dictated By: Nida Aragon MD Signed By: <Electronically signed by Nida Aragon MD in OV> 11/11/25 1320 External Record Review External record reviewed: Inpatient record, Office record, Outpatient record and Prior outpatient labs Prescription Management I considered prescription management with: Other (Toradol) I had originally thought to medicate the patient with 30 mg IM Toradol as she explained she is usually prescribed tramadol for pain. However on chart review patient takes clopidogrel, and I decided against NSAIDs for treatment at this time. Patient was treated with 975 p.o. Tylenol, 5 mg Flexeril and 10 mg Decadron for back pain instead of NSAIDs Chronic Conditions Patient?s care impacted by: Diabetes, Hypertension and Other (Rheumatoid arthritis, osteoporosis, PAD, COPD, asthma, bipolar 1, hypothyroidism, hyperparathyroidism, fibromyalgia, depression, anxiety) Social Determinants Patient?s care significantly limited by Social Determinants of Health including: Other Social Determinant of Health Discharge Plan Discharge Clinical Impression: Cervical strain, Lumbar radiculopathy, Left shoulder pain, Asthma exacerbation Patient Disposition: Home, Self-Care Instructions: Cervical Strain (ED), Cervical Strain (DC), Lumbar Radiculopathy (ED), Heat Pack Application (ED), Lower Back Exercises (ED) Additional Instructions: You were evaluated in the emergency department today due to neck pain, back pain, vaginal itching, and productive cough. Your x-ray was negative for pneumonia. Your urine was negative for bacteria or infection. We are currently awaiting your vaginal swabs, and we discussed treating you and you decided you would like to wait for diagnosis before beginning antifungal treatment. If your swab is positive, we will call you and begin treatment. You are being prescribed azithromycin, 5 days of 20 mg prednisone, albuterol inhaler, and 5 days of Flexeril to treat for cough, and back pain. Additionally, please take 500 mg of Tylenol every 6 hours, and use heating pads over the affected areas of your neck and back. I have placed referral to Orthopedics for you to follow up with them as you may need physical therapy and/or further evaluation of shoulder pain. Please call their office tomorrow morning as they will not call you. Please follow up with your primary care doctor to ensure resolution of your symptoms. Please return to the emergency department if you experience worsening back pain, stiffness, inability to move your neck, fevers over 100.4?, chest pain, shortness of breath, or any new/worsening/concerning symptoms Prescriptions: New azithromycin 250 mg tablet 250 mg PO DAILY 4 Days Qty: 4 0RF Rx Instructions: start on day 2 of therapy prednisone 20 mg tablet 20 mg PO DAILY Qty: 5 0RF cyclobenzaprine 5 mg tablet 5 mg PO BID PRN (Reason: muscle spasm) Qty: 10 0RF No Action (DME) walker [facility] See Rx Instructions .Route Qty: 1 0RF Rx Instructions: with seat (DME) Shower Chair Misc See Rx Instructions .Route Qty: 1 0RF Rx Instructions: As directed (DME) clamp on tub safety rail See Rx Instructions .Route .MEDSUPPLY Qty: 1 0RF Rx Instructions: As directed (DME) 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 See Rx Instructions .Route .MEDSUPPLY Qty: 1 0RF Rx Instructions: As directed (DME) lancets [FreeStyle Lancets] [address] [facility] [facility] See Rx Instructions .Route Qty: 100 3RF Rx Instructions: Use 1 lancet once a day aspirin 81 mg tablet,delayed release (DR/EC) 81 mg PO DAILY Qty: 90 3RF lithium carbonate 150 mg capsule 150 mg PO BID Qty: 60 2RF trazodone 100 mg tablet 100 mg PO BEDTIME 90 Days Qty: 90 1RF (DME) pen needle, diabetic 31 gauge x 5/16 needle See Rx Instructions .ROUTE .COMPLEX Qty: 100 11RF Dose Instruction: USE 1 PEN NEEDLE 6 TIMES A DAY Rx Instructions: USE 1 PEN NEEDLE 6 TIMES A DAY famotidine 20 mg tablet 20 mg PO BEDTIME 90 Days Qty: 90 1RF rizatriptan 10 mg tablet 10 mg PO Q2-4H PRN (Reason: migraine headache) 30 Days Qty: 7 0RF Rx Instructions: do not exceed 3 doses per 24 hrs quetiapine 25 mg tablet 25 mg PO BEDTIME Qty: 90 1RF scwppnowlx-izuxxpbmluwkn-lnjj 50-325-40 mg tablet 1 tab PO Q6H PRN (Reason: haeadace) Qty: 20 0RF Trelegy Ellipta 200-62.5-25 mcg blister with device 1 ea inhalation DAILY Qty: 28 0RF pantoprazole 40 mg tablet,delayed release (DR/EC) 40 mg PO DAILY Qty: 90 1RF (DME) FreeStyle Lite Strips Strip MISCELLANEOUS DAILY Qty: 100 1RF Rx Instructions: Use 1 test strip three times a day cephalexin 500 mg capsule 500 mg PO Q8H Qty: 21 0RF lidocaine [Lidoderm] 5 % adhesive patch,medicated 1 patch topical DAILY Qty: 15 0RF Rx Instructions: leave on most painful area for up to 12 hrs albuterol sulfate 90 mcg/actuation HFA aerosol inhaler 2 inh inhalation Q4H PRN (Reason: Shortness Of Breath Or Wheezing) (DME) blood pressure monitor Kit See Rx Instructions .Route Qty: 1 0RF Rx Instructions: As directed clopidogrel 75 mg tablet 75 mg PO DAILY Qty: 100 4RF Rx Instructions: Take 4 tablets on first day then 1 tablet daily. metoprolol succinate 25 mg tablet extended release 24 hr 25 mg PO DAILY Qty: 90 3RF triamcinolone acetonide [Kenalog] 40 mg/mL suspension 40 mg intrabursal ONCE Qty: 1 0RF mecobalamin (vitamin B12) 1,000 mcg lozenge 1,000 mcg PO DAILY Qty: 60 0RF Rx Instructions: allow to dissolve in mouth OR may chew lightly before swallowing folic acid 1 mg tablet 1 mg PO DAILY Qty: 90 1RF hydroxychloroquine [Plaquenil] 200 mg tablet 200 mg PO DAILY Qty: 90 1RF methotrexate sodium 2.5 mg tablet 17.5 mg PO QWEEK 90 Days Qty: 91 1RF pregabalin 200 mg capsule 200 mg PO BID Qty: 60 4RF tramadol 50 mg tablet 50 mg PO BID 30 Days Qty: 60 5RF (DME) blood pressure test kit-medium Kit See Rx Instructions .Route Qty: 1 0RF Rx Instructions: As directed Linzess 145 mcg capsule 145 mcg PO QAM 30 Days Qty: 30 3RF Referrals: [facility] [Provider Group] Interventions: ED Discharge Assessment Last Done: 11/11/25 16:26 Discharge Date/Time: 11/11/25 16:28 Print Language: Pashto
--- NOTE | 2025-11-11 12:13 | ECG_ITS ---
Test Reason : L SHOULDER PAIN Blood Pressure : */* mmHG Vent. Rate : 81 BPM Atrial Rate : 81 BPM P-R Int : 142 ms QRS Dur : 86 ms QT Int : 372 ms P-R-T Axes : 80 75 65 degrees QTcB Int : 432 ms Normal sinus rhythm Normal ECG When compared with ECG of 18-Oct-2025 14:15, No significant change was found Referred By: Estella Carreno Electronically Signed By: MARIA ELENA APODACA MD
[2025-11-11 12:38] LABS: Hemoglobin 12.6 g/dl (12.0-16.0); Imm Gran Abs Auto 0.06 X10*3/uL (0.00-0.03); Imm Gran Pct Auto 0.5 % (0.0-0.4); Lymphocytes Absolute Auto 2.2 X10*3/uL (1.2-4.9); NRBC Abs Auto 0.000 X10*3/uL (0.0-0.012); NRBC Pct Auto 0.0 /100WBC (0.0-0.2)
[2025-11-11 12:39] LABS: Hematocrit 37.6 % (37.0-47.0); Mean Corpuscular HGB Conc 33.5 g/dl (31.0-35.0); Mean Corpuscular Hemoglobin 29.2 pg (27.0-33.0); Mean Corpuscular Volume 87.0 fL (80.0-98.0); Red Blood Count 4.32 X10*6/uL (4.20-5.50)
[2025-11-11 12:52] LABS: Alanine Aminotransferase 12 U/L (0-31); Albumin Level 4.1 g/dL (3.5-5.0); Alkaline Phosphatase 73 U/L (39-117); Anion Gap 13 (12-20); Aspartate Amino Transferase 24 U/L (5-31); Blood Urea Nitrogen 11 mg/dL (9-16); Calcium 9.2 mg/dL (8.4-10.2); Carbon Dioxide 21 mmol/L (22-29); Chloride 108 mmol/L (96-108); Creatinine Clr Calc Pharmacy 47.0; Estimated Glomerular Filt Rate > 60; Lipase 39 U/L (8-78); Magnesium 1.8 mg/dL (1.6-2.6); Platelet Count 320 X10*3/uL (160-400); Potassium 4.4 mmol/L (3.3-5.1); Sodium 138 mmol/L (135-145); Total Protein 7.0 g/dL (6.5-8.0); White Blood Count 11.0 X10*3/uL (4.8-10.8)
[2025-11-11 12:57] LABS: Troponin-I High Sensitivity 10.3 ng/L (<3.5-17.0)
[2025-11-11 13:08] LABS: Resp Syncy Virus RNA Qual PCR NEGATIVE (Negative); SARS COV2 PCR INHOUSE NEGATIVE (Negative)
--- OUTSIDE RECORDS SUMMARY | 2025-11-11 13:33 | XMS_ITS | Clinical Summary ---
Author Organization [facility] Address [address] [place] [address] Phone Care Team Providers Care Mergers And Acquisitions Associate Name Role Phone Adela Wasserman MD Primary Care Provider [phone] Social History Tobacco Use Types Packs/Day Years [...] patient's age to complete this topic Insurance [place] [address] MEDICARE Member Subscriber Plan / Payer (Ef fective 2023-Present) Name:Sosa Joiner Relation to Subscriber:Self Name:Rhys Sosa Payer ID:[id number] Group ID:[id number] Type:Not on file Address: [place] [address] [address] [id number] Care Teams Mergers And Acquisitions Associate Relationship Specialty Start Date End Date Adela Wasserman MD [address] [place] [address] , [address] [facility] D/B/A: [facility] NATA Watson PCP - General Internal Medicine 12/08/24
--- OUTSIDE RECORDS SUMMARY | 2025-11-11 13:33 | XMS_ITS | Clinical Summary ---
Author Organization [facility] Address [address] [place] [address] Phone Care Team Providers Care Tangled Yarn Spool Straightener Name Role Phone Adela Gipson MD Primary Care Provider [phone] Allergies Active Allergy Reactions Criticality Noted Date [...] Most Recently Relevant to Health Maintenance [place] [address] Care Teams Tangled Yarn Spool Straightener Relationship Specialty Start Date End Date Adela Gipson MD [address] [place] [address] PCP - General Internal Medicine 05/28/22
--- OUTSIDE RECORDS SUMMARY | 2025-11-11 13:33 | XMS_ITS | Clinical Summary ---
Author Organization Located [facility] Address [address] [address] Phone Care Team Providers Care Bolt Man Name Role Phone Unavailable Primary Care Provider [...]
--- NOTE | 2025-11-11 13:51 | ED_ITS ---
HPI - General Adult General Chief complaint: Back Pain/Injury Stated complaint: left sided pain Time Seen by Provider: 11/11/25 12:52 Source: patient, RN notes reviewed and old records reviewed Mode of arrival: ambulatory Limitations: no limitations History of Present Illness ED Provider: JAQUAN Marshall HPI narrative: 65-year-old female with medical history of rheumatoid arthritis, asthma, COPD, HLD, hypothyroidism, bipolar disorder, PID, CVA, HTN, CAD, GERD, osteoporosis, fibromyalgia, depression, anxiety, presents to the ED due to 1 day of back pain, and 2 weeks of productive cough and vaginal itching. Patient reports she was turning in bed last night when she had sudden onset pain of the left cervical spinal muscles that radiated to the left shoulder, down the left side lumbar paraspinal muscles and radiating down the posterior left leg. Patient states she has a history of chronic lumbar back pain and fibromyalgia and this muscle spasm feels exactly like prior muscle spasms, denies fall/trauma/injury or increased physical activity. Patient also reports having a productive cough over the last 2 weeks that has made the shoulder pain worse due to coughing fits. Additionally, patient reports foul smelling urine with vaginal puritis and increased white, thick vaginal discharge over the past week. Denies recent travel, sick contacts, saddle paresthesias, bowel/bladder incontinence, fevers, chills chest pain, shortness of breath, difficulty breathing, abdominal pain, nausea, vomiting, headaches, visual changes, diarrhea, black/tarry stool MD complaint: Cervical neck pain, Shoulder pain, productive cough, urinary symptoms Related Data Home Medications ?Medication ?Instructions ?Recorded ?Confirmed albuterol sulfate 90 mcg/actuation 2 inh inhalation Q4 H PRN Shortness 08/23/23 10/29/25 aerosol inhaler Of Breath Or Wheezing Previous Rx's ?Medication ?Instructions ?Recorded walker #1 ea 02/08/23 Shower Chair #1 ea 01/15/24 clamp on tub safety rail #1 ea 01/15/24 ez tongue binder bed assist support #1 ea 01/15/24 blood pressure monitor #1 ea 11/04/24 blood pressure test kit-medium #1 ea 11/04/24 lancets 28 gauge (FreeStyle #100 ea 12/09/24 Lancets) clopidogrel 75 mg tablet 75 mg PO DAILY #100 tabs linaclotide 145 mcg capsule 145 mcg PO QAM 30 days #30 caps 05/13/25 (Linzess) lidocaine 5 % topical patch 1 patch topical DAILY #15 ea 06/12/25 (Lidoderm) aspirin 81 mg tablet,delayed 81 mg PO DAILY #90 tabs 0 07/15/25 release metoprolol succinate 25 mg 25 mg PO DAILY #90 tabs 06/11 tablet,extended release 24 hr lithium carbonate 150 mg capsule 150 mg PO BID #60 cap s 08/27/25 trazodone 100 mg tablet 100 mg PO BEDTIME 90 days #9 0 tabs 09/17/25 pen needle, diabetic 31 gauge x #100 ea 09/20/2504/02 famotidine 20 mg tablet 20 mg PO BEDTIME 90 days #90 tabs 09/23/25 rizatriptan 10 mg tablet 10 mg PO Q2-4H PRN migraine 09/28/25 headache 30 days #7 tabs quetiapine 25 mg tablet 25 mg PO BEDTIME #90 tabs cephalexin 500 mg capsule 500 mg PO Q8H #21 caps 10/02 mecobalamin (vitamin B12) 1,000 1,000 mcg PO DAILY #60 ea 10/04/25 mcg lozenges cwfhanbauz-hglycwdeblcdw-akkqjnpx 1 tab PO Q6H PRN hae adace #20 tabs 10/11/25 50 mg-325 mg-40 mg tablet fluticasone fur. 200 mcg-umeclid 1 ea inhalation DAILY #28 ea 10/19/25 62.5 mcg-vilant 25 mcg inhalat.powder (Trelegy Ellipta) pantoprazole 40 mg tablet,delayed 40 mg PO DAILY #90 t abs 10/20/25 release folic acid 1 mg tablet 1 mg PO DAILY #90 tabs 10/27 hydroxychloroquine 200 mg tablet 200 mg PO DAILY #90 t abs 10/27/25 (Plaquenil) methotrexate sodium 2.5 mg tablet 17.5 mg (7 x 2.5 mg) PO QWEEK 90 10/27/25 days #91 tabs pregabalin 200 mg capsule 200 mg PO BID #60 caps 10/27 tramadol 50 mg tablet 50 mg PO BID pain 30 days #6 0 tabs 10/27/25 blood sugar diagnostic (FreeStyle #100 ea 11/07/25 Lite Strips) Allergies Allergy/AdvReac Type Severity Reaction Status Date / Time methylprednisolone Allergy Severe Rash from Verified 11/11/25 12:14 Solu-Medrol shellfish derived Allergy Intermediate Hives Verified 11/11/25 12:14 etanercept (From Enbrel) AdvReac Severe Facial Verified 11/11/25 12:14 Swelling metformin AdvReac Severe Diarrhea Verified 11/11/25 12:14 metronidazole (From FLAGYL) AdvReac Severe Diarrhea Verified 11/11/25 12:14 prednisone AdvReac Intermediate hallucinations, Verified 11/11/25 12:14 more than 20 mg doses PMFSH Past Medical History Medical History (Updated 10/31/25 @ 17:43 by Dang Fuentes NP) Osteoporosis Snoring Hypersomnia Severe major depression without psychotic features CAD (coronary artery disease) NSTEMI (non-ST elevated myocardial infarction) GERD (gastroesophageal reflux disease) Diverticulitis 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 intestine manager long term care (current) use 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 Acute respiratory distress Tendonitis of ankle or foot Cough Stable angina Anxiety HLD (hyperlipidemia) HTN (hypertension) COPD exacerbation Hyperkalemia Atherosclerotic cardiovascular disease Hospital discharge follow-up Colitis CVA (cerebral vascular accident) (~2018) Breast pain, right Rash Bloody diarrhea PAD (peripheral artery disease) Hyperlipidemia LDL goal <100 COPD (chronic obstructive pulmonary disease) Infiltrating ductal carcinoma of left breast, stage 2 Insomnia Dyslipidemia Bipolar 1 disorder, depressed Cough Restrictive airway disease Hypothyroid IDDM (insulin dependent diabetes mellitus) Vitamin D deficiency Osteoporosis Breast cancer Hyperparathyroidism Thyroid nodule T2DM (type 2 diabetes mellitus) Depression Fibromyalgia Seropositive rheumatoid arthritis Reactive airways dysfunction syndrome Allergic rhinitis Irritable bowel Anxiety Bronchial asthma Diabetes type 2, uncontrolled Surgical History S/P laparoscopic colectomy (04/15/24) Hx of sigmoidoscopy History of bronchoscopy Hx of endoscopy H/O cardiac catheterization History of lumpectomy of left breast History of pubovaginal sling History of esophagogastroduodenoscopy (EGD) History of tubal ligation History of colonoscopy History of bunionectomy of both great toes H/O: hysterectomy Family History Family History Mother Diabetes HTN (hypertension) Uterus cancer Malignant tumor of head Breast cancer Father Diabetes HTN (hypertension) CVD (cardiovascular disease) Heart problem Maternal Aunt Breast cancer Brother Myocardial infarction S/P CABG x 4 Family/Other FH: mental illness Family/Other Lung cancer Other Mental health disorder Social History Social History Household Members: Family Household Members Other:: sister Housing: House Are you a primary career development coordinator to a significant other at home: No Do you presently have visiting nurse or other home services: No Alcohol intake: never Comment: Low fall Patient Tobacco Use Status: Current everyday Tobacco user Tobacco use type: Cigarette Cigarette Packs Per Day: 0.5 Cigarettes Per Day: 4 Years Smoked: 48 e-Cigarette/Vaping Use: Never Used Second Hand Smoke Exposure: Yes Substance Use Type: Marijuana Advance Directives: Yes Advance Directives on File: Yes Advance Directives Date on File: 12/22/21 Do you have a plan to hurt others: No Plan service: No Current occupational status: disabled Current occupation: rt handed Cognitive needs: No Hearing needs: No Vision needs: Yes Physical Exam ED Vital Signs: Vital Signs - 24 hr 11/11/25 12:10 Temperature 98 F Pulse Rate 86 Respiratory Rate 18 Blood Pressure 148/65 H Pulse Oximetry 98 Oxygen Delivery Method Room Air BMI result Body Mass Index 20.5 Medical Decision Making Lab Data 11/11/25 12:27 11/11/25 12:27 Labs: Lab Results 11/11/25 Range/Units 12:27 WBC 11.0 H (4.8-10.8) X10*3/uL RBC 4.32 (4.20-5.50) X10*6/uL Hgb 12.6 (12.0-16.0) g/dl Hct 37.6 (37.0-47.0) % MCV 87.0 (80.0-98.0) fL MCH 29.2 (27.0-33.0) pg MCHC 33.5 (31.0-35.0) g/dl RDW 15.5 (11.0-16.0) % Plt Count 320 (160-400) X10*3/uL MPV 10.4 (9.4-12.3) fL Immature Gran % (Auto) 0.5 H (0.0-0.4) % Neut % (Auto) 71.6 (45-73) % Lymph % (Auto) 19.8 L (20-40) % [place] % (Auto) 7.1 (2-11) % Eos % (Auto) 0.5 (0-4) % Baso % (Auto) 0.5 (0-2) % Lymph # (Auto) 2.2 (1.2-4.9) X10*3/uL [place] # (Auto) 0.8 (0.1-1.2) X10*3/uL Eos # (Auto) 0.1 (0.0-0.4) X10*3/uL Baso # (Auto) 0.1 (0.0-0.2) X10*3/uL Abs Immat Gran (auto) 0.06 H (0.00-0.03) X10*3/uL Absolute Neuts (auto) 7.9 (2.0-8.3) x10*3/uL Absolute Nucleated RBC 0.000 (0.0-0.012) X10*3/uL Nucleated RBC % (auto) 0.0 (0.0-0.2) /100WBC Sodium 138 (135-145) mmol/L Potassium 4.4 (3.3-5.1) mmol/L Chloride 108 (96-108) mmol/L Carbon Dioxide 21 L (22-29) mmol/L Anion Gap 13 (12-20) BUN 11 (9-16) mg/dL Creatinine 0.79 (0.5-1.4) mg/dL Estim Creat Clear Calc 47.0 Estimated GFR > 60 Random Glucose 185 H (60-115) mg/dL Calcium 9.2 (8.4-10.2) mg/dL Magnesium 1.8 (1.6-2.6) mg/dL Total Bilirubin 0.2 (0.0-1.0) mg/dL AST 24 (5-31) U/L ALT 12 (0-31) U/L Alkaline Phosphatase 73 (39-117) U/L Troponin I High Sens 10.3 D (<3.5-17.0) ng/L Total Protein 7.0 (6.5-8.0) g/dL Albumin 4.1 (3.5-5.0) g/dL Lipase 39 (8-78) U/L Influenza Type A (PCR) NEGATIVE (Negative) Influenza Type B (PCR) NEGATIVE (Negative) RSV RNA Qual (PCR) NEGATIVE (Negative) SARS-CoV-2 RNA (RT-PCR) NEGATIVE (Negative) Discharge Plan Discharge Prescriptions: No Action (DME) walker Misc See Rx Instructions .Route Qty: 1 0RF Rx Instructions: with seat (DME) Shower Chair Misc See Rx Instructions .Route Qty: 1 0RF Rx Instructions: As directed (DME) clamp on tub safety rail See Rx Instructions .Route .MEDSUPPLY Qty: 1 0RF Rx Instructions: As directed (DME) ez tongue binder bed assist support See Rx Instructions .Route .MEDSUPPLY Qty: 1 0RF Rx Instructions: As directed (DME) lancets [FreeStyle Lancets] [facility] See Rx Instructions .Route Qty: 100 3RF Rx Instructions: Use 1 lancet once a day aspirin 81 mg tablet,delayed release (DR/EC) 81 mg PO DAILY Qty: 90 3RF lithium carbonate 150 mg capsule 150 mg PO BID Qty: 60 2RF trazodone 100 mg tablet 100 mg PO BEDTIME 90 Days Qty: 90 1RF (DME) pen needle, diabetic 31 gauge x 5/16 needle See Rx Instructions .ROUTE .COMPLEX Qty: 100 11RF Dose Instruction: USE 1 PEN NEEDLE 6 TIMES A DAY Rx Instructions: USE 1 PEN NEEDLE 6 TIMES A DAY famotidine 20 mg tablet 20 mg PO BEDTIME 90 Days Qty: 90 1RF rizatriptan 10 mg tablet 10 mg PO Q2-4H PRN (Reason: migraine headache) 30 Days Qty: 7 0RF Rx Instructions: do not exceed 3 doses per 24 hrs quetiapine 25 mg tablet 25 mg PO BEDTIME Qty: 90 1RF cmfbcrqzfx-bqubgozmhqrwd-cvop 50-325-40 mg tablet 1 tab PO Q6H PRN (Reason: haeadace) Qty: 20 0RF Trelegy Ellipta 200-62.5-25 mcg blister with device 1 ea inhalation DAILY Qty: 28 0RF pantoprazole 40 mg tablet,delayed release (DR/EC) 40 mg PO DAILY Qty: 90 1RF (DME) FreeStyle Lite Strips Strip MISCELLANEOUS DAILY Qty: 100 1RF Rx Instructions: Use 1 test strip three times a day cephalexin 500 mg capsule 500 mg PO Q8H Qty: 21 0RF lidocaine [Lidoderm] 5 % adhesive patch,medicated 1 patch topical DAILY Qty: 15 0RF Rx Instructions: leave on most painful area for up to 12 hrs albuterol sulfate 90 mcg/actuation HFA aerosol inhaler 2 inh inhalation Q4H PRN (Reason: Shortness Of Breath Or Wheezing) ([facility] [place]) blood pressure monitor Kit See Rx Instructions .Route Qty: 1 0RF Rx Instructions: As directed clopidogrel 75 mg tablet 75 mg PO DAILY Qty: 100 4RF Rx Instructions: Take 4 tablets on first day then 1 tablet daily. metoprolol succinate 25 mg tablet extended release 24 hr 25 mg PO DAILY Qty: 90 3RF triamcinolone acetonide [Kenalog] 40 mg/mL suspension 40 mg intrabursal ONCE Qty: 1 0RF mecobalamin (vitamin B12) 1,000 mcg lozenge 1,000 mcg PO DAILY Qty: 60 0RF Rx Instructions: allow to dissolve in mouth OR may chew lightly before swallowing folic acid 1 mg tablet 1 mg PO DAILY Qty: 90 1RF hydroxychloroquine [Plaquenil] 200 mg tablet 200 mg PO DAILY Qty: 90 1RF methotrexate sodium 2.5 mg tablet 17.5 mg PO QWEEK 90 Days Qty: 91 1RF pregabalin 200 mg capsule 200 mg PO BID Qty: 60 4RF tramadol 50 mg tablet 50 mg PO BID 30 Days Qty: 60 5RF (DME) blood pressure test kit-medium Kit See Rx Instructions .Route Qty: 1 0RF Rx Instructions: As directed Linzess 145 mcg capsule 145 mcg PO QAM 30 Days Qty: 30 3RF Print Language: French
[2025-11-11 14:19] VITALS: BP 133/63; PULSE 72; PULSE 74; RESP 16; RESP 18; O2SAT 96; O2SAT 98
[2025-11-11] MEDS: Albuterol Sulfate 2.5 MG, Albuterol/Iprat 2.5/0.5MG 3 ML 3 ML INHALE (14:19)
[2025-11-11 14:49] LABS: Venous Blood Gas Refer to POC result
[2025-11-11 14:52] LABS: Appearance Urine Clear; Glucose Urine UA Negative (Negative); PH 8.0 (5.0-9.0); Specific Gravity - Urine 1.015 (1.005-1.025)
[2025-11-11 14:52] LABS: VBG HCO3 25 mmol/L (22-26); VBG O2 % Saturation 80.0 %
[2025-11-11] MEDS: Lidocaine 4 % Patch ADH..PATCH 2 PATCH TRANSDERMA (15:08)
[2025-11-11] MEDS: Magnesium Sulfate/H2O 2 GM/50 ML PIGGYBACK IV (15:08)
[2025-11-11 15:26] LABS: Troponin-I High Sensitivity < 2.7 ng/L (<3.5-17.0)
[2025-11-11 15:59] LABS: Bacterial Vaginosis PCR NEGATIVE (Negative); Candida Group PCR DETECTED (Not Detect); Candida glab krusei PCR DETECTED (Not Detect); Trichomonas vaginalis PCR NOT DETECTED (Not Detect)
[2025-11-11 16:26] VITALS: BP 130/59; PULSE 88; RESP 16; TEMP 36.8; O2SAT 96
== END 2025-11-11 16:28 | disposition home or self-care (01) ==
PROVIDERS: Physician Assistant Medical; Emergency Provider Emergency Medicine; PCP Internal Medicine
DX: M54.12 Radiculopathy, cervical region (principal); M54.16 Radiculopathy, lumbar region; J45.901 Unspecified asthma with (acute) exacerbation; M25.512 Pain in left shoulder; L29.2 Pruritus vulvae; M54.2 Cervicalgia; Z03.818 Encounter for observation for suspected exposure to other biological agents ruled out; Z79.899 Other long term (current) drug therapy; F17.210 Nicotine dependence, cigarettes, uncomplicated
CPT/HCPCS: 36415; 71046; 80053; 81003; 81515; 82803; 83690; 83735; 84484; 85025; 87637; 93005; 94640; 99284; J1100; J1885; J3475

== ENCOUNTER → 2025-11-11 12:13 | Outpatient (BNV) | payer OTHER, SELFPAY | PROVIDERS: Emergency Provider Emergency Medicine; PCP Internal Medicine; Visit Provider Internal Medicine Cardiovascular Disease | DX: M25.512 Pain in left shoulder (principal) | CPT/HCPCS: 93010 ==

== ENCOUNTER → 2025-11-11 12:14 | Outpatient (BNV) | payer OTHER, SELFPAY | PROVIDERS: Emergency Provider Emergency Medicine; PCP Internal Medicine; Visit Provider Student in an Organized Health Care Education/Training Program | DX: M54.6 Pain in thoracic spine (principal) | CPT/HCPCS: 71046 ==